=== PATIENT | female | born 1945 | race Caucasian/White ===

== ENCOUNTER 2022-07-11 20:49 | Emergency (ER) | payer MEDICARE, SELFPAY ==
[2022-07-11 21:12] VITALS: BP 127/68; PULSE 66; RESP 20; TEMP 36.6; O2SAT 96; BMI 23.2
--- NOTE | 2022-07-11 21:24 | ED.LOWEXI1 ---
HPI - Extremity Injury (Lower) General Chief Complaint: Extremity Injury, Lower Stated Complaint: left ankle fall Time Seen by Provider: 07/11/22 21:24 Source: patient and family Mode of arrival: walk-in Limitations: no limitations History of Present Illness HPI Narrative: He presents emergency department complaining of left ankle pain. Patient states she was at a and she has not worked. She is in a long time. She twisted her left ankle and she fell. She hit the right frontal area of her scalp and complaining of shoulder pain on the right and left foot pain. Patient states she took hydrocodone that she has at home for pain and that is helping a little bit. She is able to bear some weight but it hurts when she walks. She denies any paresthesias. She did not have any loss of consciousness. She takes a daily aspirin. She denies any headache visual disturbance, speech difficulties, dizziness. Patient has a history of chronic obstructive pulmonary disease and she is on 3 L nasal cannula at home. She denies any chest pain, shortness of breath. Denies any abdominal pain, or back pain. Related Data Allergies Allergy/AdvReac Type Severity Reaction Status Date / Time lisinopril Allergy Intermediate Verified 07/11/22 21:15 Review of Systems ROS Narrative ROS: Unless otherwise stated in this report the patient's positive and negative responses for review of systems for constitutional, eyes, ENT, cardiovascular, respiratory, gastrointestinal, neurological, , musculoskeletal and integument systems and related systems to the presenting problem are either stated in the history of present illness or were not pertinent or were negative for the symptoms and/or complaints related to the presenting medical problem. Exam Narrative: Exam Narrative: Nurses notes and vital signs reviewed and patient is not hypoxic. General: Nontoxic, Elderly, frail, chronically ill, and in no apparent distress. Skin: Warm, dry, no pallor noted. No Rash Head: Normocephalic, Right frontal contusion, ecchymosis, and abrasion, no step-offs. Moderate tenderness to palpation Neck: Supple, non-tender. Eye: Pupils are equal, round and EOMI. No scleral icterus. Ears, Nose, Mouth, and Throat: TM clear,No hemotympanum,no posterior oropharynx erythema or nasal mucosal hypertrophy, uvula is mid-line Oral mucosa is moist Cardiovascular: Regular Rate and Rhythm without murmur, gallop or rub. Respiratory: No accessory muscle use or respiratory distress. Lungs are clear to auscultation, no wheezing, rales or rhonchi Chest Wall: no tenderness Back: No midline thoracic or lumbar vertebral tenderness. No CVA tenderness Musculoskeletal: Tenderness to palpation to the left ankle with moderate edema. He was noted. There is severe tenderness at the base of the 5th. DP+2, TP +2, capillary refill is brisk. Range of motion is limited by pain at the ankle. There is no pain to the proximal tibia-fibula. normal ROM, no calf or popliteal tenderness, no lower extremity edema/swelling GI: Abdomen is soft, non-distended. Normal bowel sounds. No masses appreciated. No tenderness to palpation. No rebound, guarding, or rigidity noted. Neurological: A&O x4. No cranial nerve dysfunction observed. No truncal ataxia. Moves all extremities. Sensation intact. Psychiatric: Cooperative and interactive. Normal mood and affect. Constitutional: Vital Signs, click to edit/add: Vital Signs - 24 hr 07/11/22 21:12 Temperature 98 F Pulse Rate [Monito r] 66 Respiratory Rate 20 Blood Pressure [Ri ght Arm] 127/68 H Pulse Oximetry 96 Oxygen Delivery Me thod Nasal Cannula Oxygen Delivery Fl ow Rate 3 Course Vital Signs Vital signs: Vital Signs Temperature 98 F 07/11/22 21:12 Pulse Rate 66 07/11/22 21:12 Respiratory Rate 20 07/11/22 21:12 Blood Pressure 127/68 H 07/11/22 21:12 Pulse Oximetry 96 07/11/22 21:12 Oxygen Delivery Method Nasal Cannula 07/11/22 21:12 Oxygen Delivery Flow Rate 3 07/11/22 21:12 Temperature 98 F 07/11/22 21:12 Pulse Rate 66 07/11/22 21:12 Respiratory Rate 20 07/11/22 21:12 Blood Pressure 127/68 H 07/11/22 21:12 Pulse Oximetry 96 07/11/22 21:12 Oxygen Delivery Method Nasal Cannula 07/11/22 21:12 Oxygen Delivery Flow Rate 3 07/11/22 21:12 MDM - Extremity Injury (Lower) MDM Narrative Medical decision making narrative: Patient had CT scan of the brain done, it was unremarkable. The patient should right shoulder has full range of motion there is no bony tenderness there is no clinical indication for radiologic x-ray of the right shoulder. Patient had pain and tenderness to palpation to the base of the 5th and lateral ankle. The x-ray showed an intra-articular base of the 5th metacarpal fracture. Patient was placed in a fracture shoe. She is weightbearing as tolerated. She can use a walker as needed. She is to follow-up with Dr. Sahu or orthopedic surgeon. The patient states she has a urgent care physician assistant in [place] that she will follow-up with. She states she has not required home that she will take for pain. At this time the patient is without objective evidence of an acute process requiring hospitalization or inpatient management. The patient has remained hemodynamically stable. No additional indication for emergent studies at this time. I answered all questions. Discussed discharge instructions including standard anticipatory guidance and what should prompt a return to the emergency department, including if they get worse are not getting better or develops any new or concerning symptoms. I've given them specific time frame in which to follow-up, and who to follow-up with. The patient demonstrates understanding. Patient is nontoxic and stable for discharge with outpatient follow-up. This note was created with the assistance of a speech recognition program. Although the intention is to generate documents that actually reflects the content of the visit, no guarantees can be provided that every mistake has been identified and corrected by editing. Discharge Plan Discharge Chief Complaint: Extremity Injury, Lower Clinical Impression: Fracture of fifth metatarsal bone of left foot Patient Disposition: Home, Self-Care Time of Disposition Decision: 23:42 Condition: Good Instructions: Foot Fracture in Adults (ED) Interventions: ED Discharge Assessment Last Done: 07/12/22 00:30 Additional Instructions: Use walking boot at all times. use walker as needed. Continue to take [place]. If Dr. Sahu in the morning. Rest, ice, elevate Stand Alone Forms: Portal Instructions Referrals: LILY DEL REAL [Primary Care Provider] - As soon as possible (podiatry, ortho) Roly Sahu MD [Physician] - As soon as possible Discharge Date/Time: 07/12/22 00:31
--- NOTE | 2022-07-11 21:50 | XR_ITS ---
The [address] [address] Patient Name: ART GARCIA MRN: [id number] date: 1945 Sex: F Assigned Patient Location: ER Current Patient Location: ER Accession/Order Number: [id number] Exam Date: 07/11/2022 10:22 Report Date: 07/11/2022 22:58 At the request of: JOSE RANDOLPH Procedure: XR ankle LT min 3V EXAM: XR ankle LT min 3V, XR foot LT min 3V HISTORY: Twisted left foot and ankle this morning. COMPARISON: None. TECHNIQUE: 3 views a of the ankle and 3 views of the foot FINDINGS: Nondisplaced intra-articular fracture of the fifth metatarsal base. No additional fracture, dislocation, subluxation or osseous lesions. Lateral soft tissue edema. Scattered age-related degenerative changes of the joint spaces. Scattered chronic ossifications. . Atherosclerosis of the vascular structures. Dorsal and plantar calcaneal enthesophytes. IMPRESSION: Nondisplaced intra-articular fracture of the fifth metatarsal base. Orthopedic surgical follow-up is necessary. Electronically authenticated by: GENARO LAWRENCE Date: 07/11/2022 22:58
--- NOTE | 2022-07-11 21:50 | XR_ITS ---
The [address] [address] Patient Name: ART GARCIA MRN: [id number] date: 1945 Sex: F Assigned Patient Location: ER Current Patient Location: ER Accession/Order Number: [id number] Exam Date: 07/11/2022 10:22 Report Date: 07/11/2022 22:58 At the request of: JOSE RANDOLPH Procedure: XR foot LT min 3V EXAM: XR ankle LT min 3V, XR foot LT min 3V HISTORY: Twisted left foot and ankle this morning. COMPARISON: None. TECHNIQUE: 3 views a of the ankle and 3 views of the foot FINDINGS: Nondisplaced intra-articular fracture of the fifth metatarsal base. No additional fracture, dislocation, subluxation or osseous lesions. Lateral soft tissue edema. Scattered age-related degenerative changes of the joint spaces. Scattered chronic ossifications. . Atherosclerosis of the vascular structures. Dorsal and plantar calcaneal enthesophytes. IMPRESSION: Nondisplaced intra-articular fracture of the fifth metatarsal base. Orthopedic surgical follow-up is necessary. Electronically authenticated by: GENARO LAWRENCE Date: 07/11/2022 22:58
== END 2022-07-12 00:31 | disposition home or self-care (01) ==
PROVIDERS: Emergency Provider Emergency Medicine; PCP Internal Medicine
DX: S92.352A Displaced fracture of fifth metatarsal bone, left foot, initial encounter for closed fracture (principal); W19.XXXA Unspecified fall, initial encounter; Z79.82 Long term (current) use of aspirin; J44.9 Chronic obstructive pulmonary disease, unspecified; Z99.81 Dependence on supplemental oxygen
CPT/HCPCS: 73610; 73630; 99283

== ENCOUNTER 2022-08-06 09:30 | Outpatient (OUT) | payer MEDICARE, SELFPAY ==
[2022-08-06 11:33] LABS: Estimated Average Glucose 169 mg/dL; Glycohemoglobin A1C 7.5 % (4.5-6.2)
[2022-08-06 12:46] LABS: Chol HDL Ratio 2.8; Cholesterol 123 mg/dL (<=200); HDL Cholesterol 44 mg/dL (40-60); Triglycerides 199 mg/dL (<=150); VLDL CHOLESTEROL 39.8 mg/dL
== END 2022-08-06 09:31 | disposition home or self-care (01) ==
LOC: LAB 09:34
PROVIDERS: PCP Internal Medicine; Visit Provider Physician Assistant
DX: Z00.00 Encounter for general adult medical examination without abnormal findings (principal); E11.311 Type 2 diabetes mellitus with unspecified diabetic retinopathy with macular edema; I13.2 Hypertensive heart and chronic kidney disease with heart failure and with stage 5 chronic kidney disease, or end stage renal disease; I25.10 Atherosclerotic heart disease of native coronary artery without angina pectoris; E78.2 Mixed hyperlipidemia; E11.22 Type 2 diabetes mellitus with diabetic chronic kidney disease
CPT/HCPCS: 36415; 80061; 83036

== ENCOUNTER 2022-08-08 10:37 | Outpatient (OUT) | payer MEDICARE, SELFPAY ==
--- NOTE | 2022-08-08 | NM_ITS ---
The [address] [address] Patient Name: ART GARCIA MRN: [id number] date: 1945 Sex: F Assigned Patient Location: ID Current Patient Location: ID Accession/Order Number: [id number] Exam Date: 08/08/2022 10:30 Report Date: 08/08/2022 17:00 At the request of: JOHN Sanchez APLING Procedure: CHIARA bone scan limited area EXAMINATION: ID bone scan limited area HISTORY: Right shoulder pain COMPARISON: CT chest 04/04/2022, chest x-ray 02/22/2022 TECHNIQUE: After obtaining the patient's consent, 24.9 mCi Tc-99m MDP was injected intravenously. Images were obtained approximately three hours later. FINDINGS: REGION IMAGED: Thorax ABNORMALITIES: Photopenia identified in a shoulder labeled the left, this has the appearance of a shoulder arthroplasty with increased activity in the glenoid.. Diffuse increase in activity identified in the alternate shoulder labeled the right, favoring degenerative change OTHER: The original image set is mislabeled, subsequent images were corrected. IMPRESSION: Diffuse increased activity in the left shoulder consistent with degenerative change. Findings consistent with right shoulder arthroplasty Electronically authenticated by: GENARO MARTINEZ Date: 08/08/2022 17:00
== END 2022-08-08 10:38 | disposition home or self-care (01) ==
LOC: NM 10:38
PROVIDERS: PCP Internal Medicine; Visit Provider Nurse Practitioner Family
DX: M25.551 Pain in right hip (principal); G89.29 Other chronic pain
CPT/HCPCS: 78300; A9503

== ENCOUNTER 2022-08-15 09:26 | Emergency (ER) | payer MEDICARE, SELFPAY ==
[2022-08-15] VITALS (8 sets, daily range): BP systolic 102–120; BP diastolic 44–51; PULSE 50–59; RESP 16–28; TEMP 37; O2SAT 89–99; BMI 26.5
--- NOTE | 2022-08-15 09:48 | XR_ITS ---
The [address] [address] Patient Name: ART GARCIA MRN: [id number] date: 1945 Sex: F Assigned Patient Location: ER Current Patient Location: ER Accession/Order Number: [id number] Exam Date: 08/15/2022 10:16 Report Date: 08/15/2022 10:41 At the request of: CARLOS HALE Procedure: XR shoulder LT min 2V PROCEDURE: XR shoulder LT min 2V HISTORY: fall , skin tear COMPARISON: None. FINDINGS: BONES:Loss of the glenohumeral joint space with [id number] articulation, periarticular osteophytes, and likely bone remodeling of the glenoid. High riding humeral head, likely contacting the undersurface of acromion process. SOFT TISSUES:No visible soft tissue swelling. EFFUSION:None visible. OTHER: Mechanical fusion of lower cervical spine and multilevel laminectomy and repair. IMPRESSION: 1. 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 2. No appreciable acute abnormality. Electronically authenticated by: ZEKE COSBY Date: 08/15/2022 10:41
--- NOTE | 2022-08-15 09:48 | CT_ITS ---
The [address] [address] Patient Name: ART GARCIA MRN: [id number] date: 1945 Sex: F Assigned Patient Location: ER Current Patient Location: ER Accession/Order Number: [id number] Exam Date: 08/15/2022 10:00 Report Date: 08/15/2022 10:37 At the request of: CARLOS HALE Procedure: CT head/brain wo con EXAMINATION: CT head/brain wo con HISTORY: fall , dizziness, found on bathroom floor COMPARISON: No relevant comparison available. TECHNIQUE: Axial CT images were obtained without IV contrast. Dose reduction techniques were achieved by using automated exposure control and/or adjustment of mA and/or kV according to patient size and/or use of iterative reconstruction technique. FINDINGS: BRAIN: No edema, hemorrhage, mass, acute infarction, or inappropriate atrophy. Small focus of calcium deposition within left frontal lobe. CSF SPACES: No hydrocephalus, subarachnoid hemorrhage, or mass. Appropriate for age. SKULL: No fracture, mass, or other significant visible lesion. SINUSES: No significant mucosal thickening or fluid on the limited views. ORBITS: No appreciable abnormality on the limited views. OTHER: Mild subcutaneous bruising versus small hematoma overlying the anterior left scalp. IMPRESSION: 1. No intracranial hemorrhage or appreciable acute abnormality. 2. Age consistent chronic changes. 3. Anterior left scalp small subcutaneous hematoma. 4. No fracture of the calvarium. Electronically authenticated by: ZEKE COSBY Date: 08/15/2022 10:37
--- NOTE | 2022-08-15 09:48 | ECG_ITS ---
The [facility] Test Date: 2022-08-15 Pat Name: ART GARCIA Department: Room: - Gender: Female [employer] Layer: : 1945 Requested By: LILY DEL REAL Order Number: [id number] Reading MD: FERN CARREON Measurements Intervals [place] Rate: 51 P: 90 MS: 248 QRS: -15 QRSD: 124 T: -48 QT: 450 QTc: 428 Interpretive Statements 1100 Sinus bradycardia 2231 First degree AV block 3314 Cannot rule out anterolateral myocardial infarction, age undetermined 3434 Septal myocardial infarction, age undetermined [address] depression, inferior ischemia can't be excluded 9150 abnormal ECG No previous ECG available for comparison Electronically Signed On 08-16-2022 7:10:40 EDT by FERN CARREON
--- NOTE | 2022-08-15 09:48 | XR_ITS ---
The [address] [address] Patient Name: ART GARCIA MRN: [id number] date: 1945 Sex: F Assigned Patient Location: ER Current Patient Location: ER Accession/Order Number: [id number] Exam Date: 08/15/2022 10:16 Report Date: 08/15/2022 10:39 At the request of: CARLOS HALE Procedure: XR elbow LT min 3V PROCEDURE: XR elbow LT min 3V HISTORY: fall COMPARISON: None. FINDINGS: BONES:No fracture, dislocation, bone lesion. Periarticular degenerative osteophytes. SOFT TISSUES:No visible soft tissue swelling. EFFUSION:None visible. OTHER: Negative. IMPRESSION: 1. Moderate degenerative changes. 2. No acute bone abnormality or joint effusion. Electronically authenticated by: ZEKE COSBY Date: 08/15/2022 10:39
--- NOTE | 2022-08-15 09:50 | ED.GENADUL1 ---
HPI - General Adult General Chief complaint: Head Injury Stated complaint: HEAD INJURY/FALL Time Seen by Provider: 08/15/22 09:34 History of Present Illness HPI narrative: 77-year-old female presents because she fell. She was dizzy and she fell and she hit her left scalp and left shoulder and left elbow. She also got an abrasion on her left knee and the dorsum of her left hand in the left wrist. The knee wrist and hand don't hurt though. She's had a tetanus shot within the last few years. No unusual neck pain. This happened just before coming into the emergency department. Related Data Allergies Allergy/AdvReac Type Severity Reaction Status Date / Time lisinopril Allergy Intermediate Verified 07/11/22 21:15 Review of Systems ROS Narrative A ten point review of systems is negative except as noted above. PFSH PFS Social History Smoking status: Former smoker Exam Narrative Exam Narrative: Nurses note and vital signs reviewed and patient is not hypoxic. General: The patient appears in no apparent distress. Patient is resting comfortably on cart. Skin: Warm, dry, no pallor noted. There is no rash noted. Head: Normocephalic, abrasion and laceration on the left side of her scalp. Eye: Normal conjunctiva, no drainage Ears, Nose, Mouth, and Throat: oral mucosa is moist. Nares patent. Cardiovascular: Regular Rate and Rhythm Respiratory: Patient is in no distress, no accessory muscle use, lungs are clear to auscultation, no wheezing, rales or rhonchi Back: non-tender GI: soft and nontender Musculoskeletal: she has bruising on the left shoulder which has good range of motion. There is an abrasion of the left elbow and left wrist and on the dorsum of the left hand. There is an abrasion on the anterior left knee. All of these joints have full range of motion. Neurological: A&O x4, normal speech Psychiatric: Cooperative Constitutional Vital Signs - 24 hr 08/15/22 09:47 08/15/22 09:42 08/15/22 09:43 Temperature 98.6 F Pulse Rate 50 L Pulse Rate [Monitor] 56 L Respiratory Rate 26 H 17 16 Blood Pressure 114/51 L Blood Pressure [Right Arm] 120/50 H Pulse Oximetry 98 99 99 Oxygen Delivery Method Room Air 08/15/22 10:25 08/15/22 10:30 08/15/22 10:35 Temperature Pulse Rate 59 L 51 L 56 L Pulse Rate [Monitor] Respiratory Rate 18 17 22 Blood Pressure 106/47 L Blood Pressure [Right Arm] Pulse Oximetry 89 L 94 L 98 Oxygen Delivery Method 08/15/22 10:35 08/15/22 10:35 08/15/22 11:00 Temperature Pulse Rate 56 L 53 L 53 L Pulse Rate [Monitor] Respiratory Rate 28 H 16 19 Blood Pressure 106/47 L 117/45 L Blood Pressure [Right Arm] Pulse Oximetry 91 L Oxygen Delivery Method Course Vital Signs Vital signs: Vital Signs Respiratory Rate 17 08/15/22 09:42 Pulse Oximetry 99 08/15/22 09:42 Temperature 98.6 F 08/15/22 09:47 Pulse Rate 53 L 08/15/22 11:00 Respiratory Rate 19 08/15/22 11:00 Blood Pressure 117/45 L 08/15/22 11:00 Pulse Oximetry 91 L 08/15/22 10:35 Oxygen Delivery Method Room Air 08/15/22 09:47 Medical Decision Making MDM Narrative Medical decision making narrative: her workup is negative and she is feeling much better now. [place] applied to her scalp, to be removed in ten days. Torn wants to go home and eat. Treatment diagnosis and follow-up were discussed with the patient and her family. Differential Diagnosis Differential Diagnosis: syncope, intracranial hemorrhage, shoulder fracture, elbow fracture Lab Data Lab results reviewed: Yes I reviewed the patient's lab results Labs: Lab Results 08/15/22 Range/Units 09:35 WBC 7.7 (4.0-11.0) 10^3/uL RBC 3.75 L (4.20-5.40) 10^6/uL Hgb 10.8 L (12.0-16.0) g/dL Hct 35.0 L (36.0-48.0) % MCV 93.3 (81.0-99.0) fL MCH 28.8 (26.7-34.0) pg MCHC 30.9 (29.9-35.2) g/dL RDW 15.5 H (11.0-15.0) % Plt Count 232 (150-450) 10^3/uL MPV 9.9 (9.5-13.5) fL Neut % (Auto) 68.3 (43.0-75.0) % Lymph % (Auto) 13.6 L (20.5-60.0) % [place] % (Auto) 12.2 H (1.7-12.0) % Eos % (Auto) 5.1 (0.9-7.0) % Baso % (Auto) 0.4 (0.2-2.0) % Neut # (Auto) 5.2 (1.4-6.5) 10^3/uL Lymph # (Auto) 1.0 L (1.2-3.8) 10^3/uL [place] # (Auto) 0.9 H (0.3-0.8) 10^3/uL Eos # (Auto) 0.4 (0.0-0.7) 10^3/uL Baso # (Auto) 0.0 (0.0-0.1) 10^3/uL Abs Immat Gran (auto) 0.03 (0.00-0.03) 10^3/uL Imm/Tot Granulo (auto) 0.4 (0.0-0.5) % Sodium 131 L (136-145) mmol/L Potassium 3.6 (3.5-5.1) mmol/L Chloride 92 L (98-107) mmol/L Carbon Dioxide 29.7 (21.0-32.0) mmol/L Anion Gap 12.9 BUN 38.0 H (7.0-18.0) mg/dL Creatinine 3.73 H (0.55-1.02) mg/dL Est GFR ( Amer) 14 L (>=60) Est GFR (Non-Af Amer) 12 L (>=60) BUN/Creatinine Ratio 10.2 Glucose 147 H (74-106) mg/dL Calcium 10.2 H (8.5-10.1) mg/dL Discharge Plan Discharge Chief Complaint: Head Injury Clinical Impression: Syncope, Contusion of multiple sites, Laceration of scalp Patient Disposition: Home, Self-Care Time of Disposition Decision: 11:58 Condition: Good Mode of Transportation: Private Vehicle Instructions: Syncope (ED), Contusion in Adults (ED), Staple Care (ED) Stand Alone Forms: Portal Instructions Referrals: LILY DEL REAL [Primary Care Provider] - 1 week Procedures ED Procedure Instructions Procedures Procedures: The following procedure was performed by me after the topical anesthetic had been applied to her scalp. Was applied ?3. Two nic were placed resulting in good skin reapproximation and no complications.
[2022-08-15 10:10] LABS: Basophils Percent Auto 0.4 % (0.2-2.0); Eosinophils Absolute Auto 0.4 10^3/uL (0.0-0.7); Eosinophils Percent Auto 5.1 % (0.9-7.0); Hemoglobin 10.8 g/dL (12.0-16.0); Immature Granulocytes Abs Auto 0.03 10^3/uL (0.00-0.03); Immature Granulocytes Pct Auto 0.4 % (0.0-0.5); Lymphocytes Percent Auto 13.6 % (20.5-60.0); Mean Corpuscular HGB Conc 30.9 g/dL (29.9-35.2); Mean Corpuscular Hemoglobin 28.8 pg (26.7-34.0); Mean Corpuscular Volume 93.3 fL (81.0-99.0); Mean Platelet Volume 9.9 fL (9.5-13.5); Monocytes Absolute Auto 0.9 10^3/uL (0.3-0.8); Monocytes Percent Auto 12.2 % (1.7-12.0); Neutrophils Absolute Auto 5.2 10^3/uL (1.4-6.5); Neutrophils Percent Auto 68.3 % (43.0-75.0); Platelet Count 232 10^3/uL (150-450); Red Blood Count 3.75 10^6/uL (4.20-5.40); Red Cell Distribution Width 15.5 % (11.0-15.0); White Blood Count 7.7 10^3/uL (4.0-11.0)
[2022-08-15 10:23] LABS: Anion Gap 12.9; BUN Creatinine Ratio 10.2; Calcium 10.2 mg/dL (8.5-10.1); Carbon Dioxide 29.7 mmol/L (21.0-32.0); Chloride 92 mmol/L (98-107); Estimated GFR (African America 14 (>=60); Estimated GFR (Non-African Ame 12 (>=60); Glucose 147 mg/dL (74-106); Potassium 3.6 mmol/L (3.5-5.1); Sodium 131 mmol/L (136-145)
== END 2022-08-15 12:18 | disposition home or self-care (01) ==
PROVIDERS: Emergency Provider Emergency Medicine; PCP Internal Medicine
DX: S01.01XA Laceration without foreign body of scalp, initial encounter (principal); R55 Syncope and collapse; T14.8XXA Other injury of unspecified body region, initial encounter; W18.30XA Fall on same level, unspecified, initial encounter; Z87.891 Personal history of nicotine dependence
CPT/HCPCS: 12001; 36415; 70450; 73030; 73080; 80048; 85025; 93005; 99285

== ENCOUNTER 2022-08-19 07:37 | Outpatient (REF) | payer MEDICARE, SELFPAY | END 2022-08-19 07:38 | disposition home or self-care (01) | LOC: LAB 07:37 | PROVIDERS: PCP Internal Medicine; Visit Provider Internal Medicine Nephrology | DX: N18.9 Chronic kidney disease, unspecified (principal); D63.1 Anemia in chronic kidney disease | CPT/HCPCS: 36415; 85018 ==

== ENCOUNTER 2022-11-29 12:48 | Outpatient (OUT) | payer MEDICARE, SELFPAY ==
[2022-11-29 13:46] LABS: Uric Acid 1.7 mg/dL (2.6-6.0)
== END 2022-11-29 12:49 | disposition home or self-care (01) ==
LOC: LAB 12:51
PROVIDERS: PCP Internal Medicine; Visit Provider Internal Medicine
DX: M10.9 Gout, unspecified (principal)
CPT/HCPCS: 36415; 84550

== ENCOUNTER 2022-12-13 15:34 | Emergency (ER) | payer MEDICARE, SELFPAY ==
[2022-12-13] VITALS (41 sets, daily range): BP systolic 77–129; BP diastolic 30–89; PULSE 31–106; RESP 7–28; TEMP 37.7; O2SAT 85–100; BMI 23.1
--- NOTE | 2022-12-13 15:45 | XR_ITS ---
The [address] [address] Patient Name: ART GARCIA MRN: [id number] date: 1945 Sex: F Assigned Patient Location: ED.MAIN Current Patient Location: ER Accession/Order Number: [id number] Exam Date: 12/13/2022 15:50 Report Date: 12/13/2022 16:56 At the request of: GAIL LLANES Procedure: XR chest 1V ONE-VIEW CHEST RADIOGRAPH, 12/13/2022 3:50 PM EDT COMPARISON: Chest, 02/22/2022. CLINICAL HISTORY: sob Findings and impression: 1. Small mildly sized right pleural fusion and partial consolidation of the right lower lobe may correspond to some atelectasis or pneumonitis. Lungs otherwise clear. 2. Cardiomegaly. 3. Metallic device overlying the sternum likely a monitoring device. Correlate clinically. Reverse right glenohumeral prostheses redemonstrated. Severe degenerative changes of the left shoulder and multilevel degenerative changes of visualized spine redemonstrated. Orthopedic fixation plate again seen over the lower cervical region. Electronically authenticated by: Beryl RAMIREZ Date: 12/13/2022 16:56
--- NOTE | 2022-12-13 15:45 | ECG_ITS ---
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: : 1945 Requested By: LILY DEL REAL Order Number: [id number] Reading MD: DARINEL CULLEN Measurements Intervals [place] Rate: 87 P: 105 ME: 152 QRS: -78 QRSD: 122 T: 81 QT: 394 QTc: 438 Interpretive Statements BIGEMINY PATTERN, UNCERTAIN MECHANISM 2420 RSR (QR) in lead V1/V2, consistent with right ventricular conduction delay 3332 Anterolateral myocardial infarction, probably recent 3631 Inferior myocardial infarction, possibly acute [address] depression 9150 abnormal ECG Compared to ECG 08/15/2022 09:40:38 Sinus bradycardia no longer present First degree AV block no longer present Possible ischemia no longer present Myocardial infarct finding still present ST (T wave) deviation still present Electronically Signed On 12-18-2022 6:55:12 EST by DARINEL CULLEN
--- NOTE | 2022-12-13 16:01 | PC.NURSE ---
Pt arrived on 3L O2, this is what she reports wearing at home. 3L O2 continues, will monitor pulse ox. Resp at bedside for treatment
[2022-12-13] MEDS: IPRATROPIUM/ALBUTEROL SULFATE 3 ML AMPUL.NEB IH (16:05)
[2022-12-13 16:10] LABS: Basophils Percent Auto 0.2 % (0.2-2.0); Eosinophils Absolute Auto 0.1 10^3/uL (0.0-0.7); Eosinophils Percent Auto 0.3 % (0.9-7.0); Hematocrit 36.7 % (36.0-48.0); Hemoglobin 10.9 g/dL (12.0-16.0); Immature Granulocytes Pct Auto 1.2 % (0.0-0.5); Lymphocytes Absolute Auto 1.7 10^3/uL (1.2-3.8); Lymphocytes Percent Auto 10.2 % (20.5-60.0); Mean Corpuscular HGB Conc 29.7 g/dL (29.9-35.2); Mean Corpuscular Hemoglobin 28.7 pg (26.7-34.0); Mean Corpuscular Volume 96.6 fL (81.0-99.0); Mean Platelet Volume 9.4 fL (9.5-13.5); Monocytes Absolute Auto 1.6 10^3/uL (0.3-0.8); Monocytes Percent Auto 9.4 % (1.7-12.0); Neutrophils Absolute Auto 13.3 10^3/uL (1.4-6.5); Neutrophils Percent Auto 78.7 % (43.0-75.0); Platelet Count 395 10^3/uL (150-450); Red Cell Distribution Width 16.1 % (11.0-15.0)
--- NOTE | 2022-12-13 16:11 | RESP.RT ---
Wears 3L at home
[2022-12-13 16:22] LABS: INR 1.02; Prothrombin Time 10.8 sec (9.0-11.6)
[2022-12-13] MEDS: KETOROLAC TROMETHAMINE 30 MG/ML VIAL 15 MG IVP (16:25)
[2022-12-13] MEDS: METHYLPREDNISOLONE SOD SUCC PF 125 MG/2 ML VIAL IVP (16:26)
[2022-12-13 16:27] LABS: Alanine Aminotransferase 31 U/L (14-59); Albumin Globulin Ratio 0.5; Albumin Level 2.5 g/dL (3.4-5.0); Alkaline Phosphatase 201 U/L (46-116); Anion Gap 14.5; Aspartate Amino Transferase 20 U/L (15-37); BUN Creatinine Ratio 12.8; Bilirubin Total 0.4 mg/dL (0.2-1.0); Calcium 9.4 mg/dL (8.5-10.1); Carbon Dioxide 25.5 mmol/L (21.0-32.0); Chloride 88 mmol/L (98-107); Estimated GFR (African America 18 (>=60); Estimated GFR (Non-African Ame 15 (>=60); Globulin 4.9 g/dL; Glucose 264 mg/dL (74-106); Total Protein 7.4 g/dL (6.4-8.2); Troponin I High Sensitivity 27.8 pg/mL (4.0-51.3)
[2022-12-13] MEDS: ATROPINE SULFATE 1 MG/10 ML SYRINGE IVP ×2 (16:27→18:01)
[2022-12-13 16:29] LABS: Sodium 124 mmol/L (136-145)
--- NOTE | 2022-12-13 16:43 | PC.NURSE ---
fast patches placed for a possible pacing if needed. heart monitor from [facility] [place] had to be removed to make room for fast patches. Atropine given IV and pt denies dizziness, nausea and not diaphoretic at this time. E talking to tarring machine operator on the phone at this time
[2022-12-13] MEDS: 0.9 % SODIUM CHLORIDE 1,000 ML 250 ML IV (17:06)
--- NOTE | 2022-12-13 17:12 | ED.GENADUL1 ---
HPI - General Adult General Chief complaint: Shortness of Breath/Dyspnea Stated complaint: SOB Time Seen by Provider: 12/13/22 15:45 Source: patient Mode of arrival: ambulance Limitations: no limitations History of Present Illness HPI narrative: Presenting to us from home after she finished her dialysis session today she is on dialysis Friday and the patient presenting to us after she started feeling short of breath when she got home from the dialysis session, there was no cough fever chills or any other complaint and she did not have any complaint for the dialysis session The patient did had a fall few weeks ago after which she had a ekg monitor tech placed The patient also had a history of a fall and trauma to the back of the head but no acute headache or pain at the moment except for chronic back pain and shoulder pain that is not new Related Data Home Medications Medication Instructions Recorded Confirmed aspirin 81 mg tablet,delayed 81 mg PO DAILY 12/13/22 12/13/22 release (Adult Low Dose Aspirin) atorvastatin 40 mg tablet 40 mg PO BEDTIME 12/13/22 12/13/22 calcium acetate(phosphat bind) 667 667 mg PO TID 12/13/22 12/13/22 mg capsule citalopram 40 mg tablet 40 mg PO DAILY 12/13/22 12/13/22 docusate sodium 100 mg capsule 100 mg PO BID 12/13/22 12/13/22 (Colace) furosemide 20 mg tablet 60 mg PO BID 12/13/22 12/13/22 insulin lispro 100 unit/mL 1 sliding scale dose subcut 12/13/22 12/13/22 subcutaneous pen (Humalog Tempo USEASDIRECTD Pen (U-100) Insulin) metoprolol succinate 25 mg 12.5 mg PO BID 12/13/22 12/13/22 tablet,extended release 24 hr midodrine 5 mg tablet 5 mg PO TID PRN hypotension 12/13/22 12/13/22 multivitamin (Daily Multi-Vitamin 1 tab PO DAILY 12/13/22 12/13/22 tablet) oxycodone-acetaminophen 5 mg-325 1 tab PO Q6H PRN pain 12/13/22 12/13/22 mg tablet pantoprazole 40 mg tablet,delayed 40 mg PO DAILY 12/13/22 12/13/22 release pramipexole 0.5 mg tablet 0.5 mg PO QPM 12/13/22 12/13/22 sennosides 8.6 mg tablet (senna) 8.6 mg PO BID 12/13/22 12/13/22 Allergies Allergy/AdvReac Type Severity Reaction Status Date / Time lisinopril Allergy Intermediate Verified 07/11/22 21:15 Review of Systems ROS Status of ROS 10 or more systems reviewed and unremarkable except as noted in history and below [facility] Social History Smoking status: Former smoker Exam Narrative Exam Narrative: Nurses notes and vital signs reviewed and patient is not hypoxic. General: Well-appearing and in no apparent distress. Skin: Warm, dry, no pallor noted. No rash. Head: Normocephalic, atraumatic. Neck: Supple, non-tender. Eye: Pupils are equal, round and EOMI. No scleral icterus. Ears, Nose, Mouth, and Throat: TM are clear, no nasal mucosal hypertrophy. Oral mucosa is moist, no posterior oropharynx erythema, uvula is mid-line Cardiovascular: The patient rate is very slow, without murmur, gallop or rub. Respiratory: No accessory muscle use or respiratory distress. Lungs are clear to auscultation, no wheezing, rales or rhonchi Chest Wall: no tenderness Back: No midline thoracic or lumbar vertebral tenderness. No CVA tenderness Musculoskeletal: normal ROM, no calf or popliteal tenderness, no lower extremity edema/swelling, bilateral skin changes on the lower extremity mostly scratches and chronic skin changes GI: Abdomen is soft, non-distended. Normal bowel sounds. No masses appreciated. No tenderness to palpation. No rebound, guarding, or rigidity noted. Neurological: A&O x4. No cranial nerve dysfunction observed. No truncal ataxia. Moves all extremities. Sensation intact. Psychiatric: Cooperative and interactive. Normal mood and affect. Constitutional Vital Signs, click to edit/add: Last Vital Signs Temp 99.9 F 12/13/22 15:38 Pulse 96 H 12/13/22 18:46 Resp 20 12/13/22 18:46 BP 98/47 L 12/13/22 18:46 Pulse Ox 99 12/13/22 18:46 O2 Del Method Nasal Cannula 12/13/22 16:08 O2 Flow Rate 3 12/13/22 16:08 Course Vital Signs Vital signs: Vital Signs Temperature 99.9 F 12/13/22 15:38 Pulse Rate 43 L 12/13/22 15:38 Respiratory Rate 24 12/13/22 15:38 Blood Pressure 129/89 12/13/22 15:38 Pulse Oximetry 97 12/13/22 15:38 Oxygen Delivery Method Nasal Cannula 12/13/22 15:38 Oxygen Delivery Flow Rate 2 12/13/22 15:38 Temperature 99.9 F 12/13/22 15:38 Pulse Rate 96 H 12/13/22 18:46 Respiratory Rate 20 12/13/22 18:46 Blood Pressure 98/47 L 12/13/22 18:46 Pulse Oximetry 99 12/13/22 18:46 Oxygen Delivery Method Nasal Cannula 12/13/22 16:08 Oxygen Delivery Flow Rate 3 12/13/22 16:08 Medical Decision Making MDM Narrative Medical decision making narrative: Upon present patient with noted that the patient heart rate was ranging between 35-40 although with time it was noted that it actually goes down to 27 The patient did had a monitor few weeks ago placed by cardiology service and [facility] The patient CBC shows some leukocytosis but it seems to be mostly reactive at the patient seem to be dehydrated from her dialysis today her sodium also is low with a sodium level of 124 EKG showing sinus bradycardia with a heart rate of 42 although on the monitor the patient was going down to 27-40 The patient does have a sense of shortness of breath but it is mostly secondary to the severe bradycardia that she have I spoke with the cardiology service in [facility] and right now we are arranging for transfer to the ICU for the possibility of pacemaker The external pads of the defibrillator placed to the patient's chest in case it is needed Atropine was provided to the patient and right now her heart rate sinus at 52 The patient also was provided with 250 cc of fluid only NS pt has doesnt take an b-madhu or anti arrhytmic -----takes Midodrine for hypotension after HD I discussed the case with Dr Joseph in cardiology service and he requested giving the pt 75 mg bolus of Lidocaine and then run a drip if it helps her rhythm ,pt was noted to have BP in lower normal and also had 83/57 ----pt BP when checked was 98/47 but i ordered Levopehd drip to be sent with the patient in case needed over the transport The patient also had an amiodarone drip started at 0.5 mg/min as the lidocaine was not very effective in controlling her rhythm I did discuss the above mentioned plan also with and he agreed with above-mentioned plan The patient will be transferred by air after the EMS by ground will take at least 3 to 5 hrs and is not safe to keep the patient in a facility where there is no specialty that would help the patient awaiting air flight pt care transferred to Dr Lozoya Lab Data Labs: Lab Results 12/13/22 Range/Units 15:47 WBC 17.0 H (4.0-11.0) 10^3/uL RBC 3.80 L (4.20-5.40) 10^6/uL Hgb 10.9 L (12.0-16.0) g/dL Hct 36.7 (36.0-48.0) % MCV 96.6 (81.0-99.0) fL MCH 28.7 (26.7-34.0) pg MCHC 29.7 L (29.9-35.2) g/dL RDW 16.1 H (11.0-15.0) % Plt Count 395 (150-450) 10^3/uL MPV 9.4 L (9.5-13.5) fL Neut % (Auto) 78.7 H (43.0-75.0) % Lymph % (Auto) 10.2 L (20.5-60.0) % [place] % (Auto) 9.4 (1.7-12.0) % Eos % (Auto) 0.3 L (0.9-7.0) % Baso % (Auto) 0.2 (0.2-2.0) % Neut # (Auto) 13.3 H (1.4-6.5) 10^3/uL Lymph # (Auto) 1.7 (1.2-3.8) 10^3/uL [place] # (Auto) 1.6 H (0.3-0.8) 10^3/uL Eos # (Auto) 0.1 (0.0-0.7) 10^3/uL Baso # (Auto) 0.0 (0.0-0.1) 10^3/uL Abs Immat Gran (auto) 0.20 H (0.00-0.03) 10^3/uL Imm/Tot Granulo (auto) 1.2 H (0.0-0.5) % PT 10.8 (9.0-11.6) sec INR 1.02 Sodium 124 L* (136-145) mmol/L Potassium 4.0 (3.5-5.1) mmol/L Chloride 88 L (98-107) mmol/L Carbon Dioxide 25.5 (21.0-32.0) mmol/L Anion Gap 14.5 BUN 40.0 H (7.0-18.0) mg/dL Creatinine 3.12 H (0.55-1.02) mg/dL Est GFR ( Amer) 18 L (>=60) Est GFR (Non-Af Amer) 15 L (>=60) BUN/Creatinine Ratio 12.8 Glucose 264 H (74-106) mg/dL Calcium 9.4 (8.5-10.1) mg/dL Total Bilirubin 0.4 (0.2-1.0) mg/dL AST 20 (15-37) U/L ALT 31 (14-59) U/L Alkaline Phosphatase 201 H (46-116) U/L Troponin I High Sens 27.8 (4.0-51.3) pg/mL Total Protein 7.4 (6.4-8.2) g/dL Albumin 2.5 L (3.4-5.0) g/dL Globulin 4.9 g/dL Albumin/Globulin Ratio 0.5 Critical Care Time Critical Care Time Critical Care Time: Yes Total Critical Care Time: 60 Attestation: multiple check up and repeated EKGs as well as bedside evaluation to make sure the pt stays stable Discharge Plan Discharge Chief Complaint: Shortness of Breath/Dyspnea Clinical Impression: Symptomatic bradycardia Patient Disposition: [facility] Time of Disposition Decision: 19:01 Discharge Location: [facility] Condition: Good Mode of Transportation: Life Flight
--- NOTE | 2022-12-13 17:17 | ECG_ITS ---
The [facility] Test Date: 2022-12-13 Pat Name: ART GARCIA Department: Room: - Gender: Female Hands Assembler: : 1945 Requested By: LILY DEL REAL Order Number: [id number] Reading MD: DARINEL CULLEN Measurements Intervals [place] Rate: 107 P: 0 LA: 220 QRS: -20 QRSD: 108 T: 132 QT: 340 QTc: 403 Interpretive Statements BIGEMINY PATTERN, UNCERTAIN MECHANISM 1575 with frequent ventricular premature complexes in a pattern of bigeminy 2231 First degree AV block 3114 Cannot rule out anterior myocardial infarction, age undetermined [address] depression, possible subendocardial injury 4564 Twave abnormality, possible lateral ischemia 8102 Low QRS voltage in chest leads 9150 abnormal ECG Compared to ECG 12/13/2022 15:41:07 Ventricular premature complex(es) now present First degree AV block now present Possible ischemia now present, Low QRS voltage now present Sinus rhythm no longer present Myocardial infarct finding still present,ST (T wave) deviation still present Electronically Signed On 12-18-2022 6:55:26 EST by DARINEL CULLEN
--- NOTE | 2022-12-13 17:33 | ECG_ITS ---
[facility] Test Date: 2022-12-13 Pat Name: ART GARCIA Department: Room: - Gender: Female [employer] Hand Finisher: : 1945 Requested By: [id number] Order Number: [id number] Reading MD: DARINEL CULLEN Measurements Intervals [place] Rate: 116 P: -10451 HI: -48062 QRS: 264 QRSD: 126 T: -83 QT: 416 QTc: 485 Interpretive Statements 92126 Atrial fibrillation with rapid ventricular response with ventricular couplets 3334 Anterolateral myocardial infarction, age undetermined 80577 Inferior myocardial infarction with posterior extension, age undetermined [address] depression, possible subendocardial injury or digitalis effect 9150 abnormal ECG Electronically Signed On 12-18-2022 6:56:20 EST by DARINEL CULLEN
[2022-12-13] MEDS: 0.9 % SODIUM CHLORIDE 250 ML IV.SOLN IV (18:40)
--- NOTE | 2022-12-13 18:43 | ECG_ITS ---
[facility] Test Date: 2022-12-13 Pat Name: ART GARCIA Department: Room: - Gender: Female Assistant Facility Manager: : 1945 Requested By: LILY DEL REAL Order Number: [id number] Reading MD: DARINEL CULLEN Measurements Intervals [place] Rate: 92 P: -14 UT: 222 QRS: -27 QRSD: 116 T: 129 QT: 356 QTc: 406 Interpretive Statements TRIGEMINY PATTERN, UNCERTAIN MECHANISM 1574 with frequent ventricular premature complexes 2231 First degree AV block 3114 Cannot rule out anterior myocardial infarction, age undetermined [address] depression 9150 abnormal ECG Compared to ECG 12/13/2022 17:27:13 Ventricular premature complex(es) now present First degree AV block now present Atrial fibrillation no longer present Myocardial infarct finding still present ST (T wave) deviation still present Electronically Signed On 12-18-2022 6:57:16 EST by DARINEL CULLEN
[2022-12-13] MEDS: AMIODARONE IN DEXTROSE,ISO-OSM 360 MG/200 ML PLAST..BAG 16.667 MG IV (19:10)
== END 2022-12-13 19:41 | disposition short-term general hospital (02) ==
PROVIDERS: Emergency Provider Emergency Medicine; PCP Internal Medicine
DX: R00.1 Bradycardia, unspecified (principal); Z99.2 Dependence on renal dialysis; Z91.81 History of falling; Z79.82 Long term (current) use of aspirin; Z79.899 Other long term (current) drug therapy; Z79.4 Long term (current) use of insulin; Z87.891 Personal history of nicotine dependence
CPT/HCPCS: 36415; 71045; 80053; 84484; 85025; 85610; 93005; 94640; 96374; 96375; 96376; 99285; J2930

== ENCOUNTER 2022-12-27 08:35 | Outpatient (REF) | payer MEDICARE, SELFPAY ==
[2022-12-27 09:13] LABS: Hemoglobin 9.1 g/dL (12.0-16.0)
== END 2022-12-27 08:36 | disposition home or self-care (01) ==
LOC: LAB 08:35
PROVIDERS: PCP Internal Medicine; Visit Provider Internal Medicine
DX: N18.9 Chronic kidney disease, unspecified (principal); D63.1 Anemia in chronic kidney disease
CPT/HCPCS: 36415; 85018

== ENCOUNTER 2023-01-06 14:32 | Observation (INO) | payer MEDICARE, SELFPAY ==
[2023-01-06] VITALS (17 sets, daily range): BP systolic 94–145; BP diastolic 42–66; PULSE 62–87; RESP 5–28; TEMP 36.7–37.3; O2SAT 75–100; BMI 29.5; BMI 22.8
--- NOTE | 2023-01-06 14:57 | ECG_ITS ---
[facility] Test Date: 2023-01-06 Pat Name: ART GARCIA Department: Room: [facility] Gender: Female Shirt Trimmer: : 1945 Requested By: LILY DEL REAL Order Number: [id number] Reading MD: FERN CARREON Measurements Intervals [place] Rate: 69 P: -30 RI: 240 QRS: -26 QRSD: 128 T: 187 QT: 448 QTc: 468 Interpretive Statements 1100 Sinus rhythm 2231 First degree AV block LEFT BUNDLE BRANCH BLOCK w/ secondary ST/T wave changes ST/T wave changes, can't exclude anterior wall ischemia 9150 abnormal ECG Electronically Signed On 01-07-2023 7:15:59 EST by FERN CARREON
--- NOTE | 2023-01-06 15:01 | ED_ITS ---
HPI - General Adult General Chief complaint: Neuro Symptoms/Deficit Stated complaint: confusion Time Seen by Provider: 01/06/23 14:48 Source: patient and family Mode of arrival: Wheelchair Limitations: no limitations History of Present Illness HPI narrative: patient's here with her daughter was concerned that she's had over several weeks , increasing confusion. She is currently under the care of cardiology was just at the clinic here today. They discontinue some of her medications in the home twelve remedying her arrhythmias and bradycardia. She's not had new trauma injuries or falls. She's not had fever shakes or chills. Earlier this year she had a CT scan noncontrast that was negative for any acute problems.I did contact her cardiology clinic they confirm that there stopped all her medications and wanted document whether not she is having a significant clinical heart block problems. The provider in the cardiology clinic did not witness any episodes of confusion or altered mental status during their visit today. She has had a CT in the past as mentioned earlier and it was normal that was done August 15 this year. Related Data Home Medications Medication Instructions Recorded Confirmed aspirin 81 mg tablet,delayed 81 mg PO DAILY 12/13/22 12/13/22 release (Adult Low Dose Aspirin) atorvastatin 40 mg tablet 40 mg PO BEDTIME 12/13/22 12/13/22 calcium acetate(phosphat bind) 667 667 mg PO TID 12/13/22 12/13/22 mg capsule citalopram 40 mg tablet 40 mg PO DAILY 12/13/22 12/13/22 docusate sodium 100 mg capsule 100 mg PO BID 12/13/22 12/13/22 (Colace) furosemide 20 mg tablet 60 mg PO BID 12/13/22 12/13/22 insulin lispro 100 unit/mL 1 sliding scale dose subcut 12/13/22 12/13/22 subcutaneous pen (Humalog Tempo USEASDIRECTD Pen (U-100) Insulin) metoprolol succinate 25 mg 12.5 mg PO BID 12/13/22 12/13/22 tablet,extended release 24 hr midodrine 5 mg tablet 5 mg PO TID PRN hypotension 12/13/22 12/13/22 multivitamin (Daily Multi-Vitamin 1 tab PO DAILY 12/13/22 12/13/22 tablet) oxycodone-acetaminophen 5 mg-325 1 tab PO Q6H PRN pain 12/13/22 12/13/22 mg tablet pantoprazole 40 mg tablet,delayed 40 mg PO DAILY 12/13/22 12/13/22 release pramipexole 0.5 mg tablet 0.5 mg PO QPM 12/13/22 12/13/22 sennosides 8.6 mg tablet (senna) 8.6 mg PO BID 12/13/22 12/13/22 Allergies Allergy/AdvReac Type Severity Reaction Status Date / Time lisinopril Allergy Intermediate Verified 07/11/22 21:15 PFSH PFS Social History Smoking status: Former smoker Exam Narrative Exam Narrative: patient's vital signs were noted essentially within normal limits. The blood pressure is excellent she's not having any clinical bradycardia arrhythmia. She is awake alert oriented ?3. I've asked or at least 10-15 questions and she is very very acute with her responses there is no evidence of any type of altered mental status or confusion. In fact she is a better historian and most of our patients. She follows simple or complex commands. She is moving all extremities is no focal neurological deficit. I reviewed her medical records in August of this year she had a noncontrast CT that was normal. HEENT examination shows no conjunctivitis no facial swelling noted trauma or injury. Chest lungs are clear no wheezes rales or rhonchi heart sounds are normal. I spoke with the cardiology clinic here and they've discontinued off her meds [place] on a air sampling and monitoring to determine if she has any significant bradycardia arrhythmias. They did not notice any confusion while she was in the cardiology clinic. Examination abdomen she has no pain or tenderness. Constitutional Vital Signs, click to edit/add: Last Vital Signs Temp 98.1 F 01/06/23 14:37 Pulse 84 01/06/23 14:37 Resp 18 01/06/23 14:37 BP 107/43 L 01/06/23 14:37 Pulse Ox 75 L 01/06/23 14:37 O2 Del Method Nasal Cannula 01/06/23 14:37 Course Vital Signs Vital signs: Vital Signs Temperature 98.1 F 01/06/23 14:37 Pulse Rate 84 01/06/23 14:37 Respiratory Rate 18 01/06/23 14:37 Blood Pressure 107/43 L 01/06/23 14:37 Pulse Oximetry 75 L 01/06/23 14:37 Oxygen Delivery Method Nasal Cannula 01/06/23 14:37 Temperature 98.1 F 01/06/23 14:37 Pulse Rate 84 01/06/23 14:37 Respiratory Rate 18 01/06/23 14:37 Blood Pressure 107/43 L 01/06/23 14:37 Pulse Oximetry 75 L 01/06/23 14:37 Oxygen Delivery Method Nasal Cannula 01/06/23 14:37 Medical Decision Making MDM Narrative Medical decision making narrative: this patient presents stable neurological status but does have mild elevation of white blood cell count, elevation of her lactate levels and substantial pyuria in a catheter urine specimen. For that reason I think is prudent to start her on parental antibiotics and supportive care to make sure she doesn't deteriorate. I discussed this case with the on-call hospitalist. Lab Data Labs: Lab Results 01/06/23 01/06/23 Range/Units 15:10 15:25 WBC 13.9 H (4.0-11.0) 10^3/uL RBC 3.88 L (4.20-5.40) 10^6/uL Hgb 10.8 L (12.0-16.0) g/dL Hct 35.9 L (36.0-48.0) % MCV 92.5 (81.0-99.0) fL MCH 27.8 (26.7-34.0) pg MCHC 30.1 (29.9-35.2) g/dL RDW 17.7 H (11.0-15.0) % Plt Count 422 (150-450) 10^3/uL MPV 9.6 (9.5-13.5) fL Neut % (Auto) 83.3 H (43.0-75.0) % Lymph % (Auto) 6.5 L (20.5-60.0) % [place] % (Auto) 7.4 (1.7-12.0) % Eos % (Auto) 0.2 L (0.9-7.0) % Baso % (Auto) 0.2 (0.2-2.0) % Neut # (Auto) 11.5 H (1.4-6.5) 10^3/uL Lymph # (Auto) 0.9 L (1.2-3.8) 10^3/uL [place] # (Auto) 1.0 H (0.3-0.8) 10^3/uL Eos # (Auto) 0.0 (0.0-0.7) 10^3/uL Baso # (Auto) 0.0 (0.0-0.1) 10^3/uL Abs Immat Gran (auto) 0.33 H (0.00-0.03) 10^3/uL Imm/Tot Granulo (auto) 2.4 H (0.0-0.5) % Sodium 130 L (136-145) mmol/L Potassium 3.5 (3.5-5.1) mmol/L Chloride 90 L (98-107) mmol/L Carbon Dioxide 28.8 (21.0-32.0) mmol/L Anion Gap 14.7 BUN 35.0 H (7.0-18.0) mg/dL Creatinine 2.61 H (0.55-1.02) mg/dL Est GFR ( Amer) 22 L (>=60) Est GFR (Non-Af Amer) 18 L (>=60) BUN/Creatinine Ratio 13.4 Glucose 270 H (74-106) mg/dL Lactate 3.1 H* (0.4-2.0) mmol/L Calcium 9.7 (8.5-10.1) mg/dL Total Bilirubin 0.5 (0.2-1.0) mg/dL AST 19 (15-37) U/L ALT 27 (14-59) U/L Alkaline Phosphatase 200 H (46-116) U/L Total Protein 7.7 (6.4-8.2) g/dL Albumin 2.6 L (3.4-5.0) g/dL Globulin 5.1 g/dL Albumin/Globulin Ratio 0.5 TSH 5.629 H (0.358-3.740) uIU/mL Urine Color Yellow (YELLOW) Urine Clarity Cloudy A (CLEAR) Urine pH 6.0 (5.0-9.0) Ur Specific [place] 1.020 (1.005-1.025) Urine Protein 100 A (NEG/TRACE) mg/dL Urine Glucose (UA) Negative (NEGATIVE) mg/dL Urine Ketones Trace A (NEGATIVE) mg/dL Urine Occult Blood Moderate A (NEGATIVE) Urine Nitrite Negative (NEGATIVE) Urine Bilirubin Negative (NEGATIVE) Urine Urobilinogen 0.2 (0.2-1.0) EU/dL Ur Leukocyte Esterase Large A (NEGATIVE) Urine RBC 5-10 A (0-2) #/HPF Urine WBC >100 A (NONE SEEN) #/HPF Ur Squamous Epith Cells Rare (NONE/RARE) #/LPF Urine Crystals None seen (None Seen) #/HPF Urine Bacteria Large A (NONE SEEN) #/HPF Urine Casts None seen (NONE SEEN) #/LPF Urine Mucus None seen (NONE SEEN) Ur Culture Indicated? Yes Discharge Plan Discharge Chief Complaint: Neuro Symptoms/Deficit Clinical Impression: Urinary tract infection, Renal failure, chronic Patient Disposition: Admitted as Observation Time of Disposition Decision: 16:16 Prescriptions / Home Meds: No Action atorvastatin 40 mg tablet 40 mg PO BEDTIME furosemide 20 mg tablet 60 mg PO BID calcium acetate(phosphat bind) 667 mg capsule 667 mg PO TID citalopram 40 mg tablet 40 mg PO DAILY metoprolol succinate 25 mg tablet extended release 24 hr 12.5 mg PO BID pantoprazole 40 mg tablet,delayed release (DR/EC) 40 mg PO DAILY pramipexole 0.5 mg tablet 0.5 mg PO QPM sennosides [senna] 8.6 mg tablet 8.6 mg PO BID midodrine 5 mg tablet 5 mg PO TID PRN (Reason: hypotension) multivitamin [Daily Multi-Vitamin] Tablet 1 tab PO DAILY docusate sodium [Colace] 100 mg capsule 100 mg PO BID aspirin [Adult Low Dose Aspirin] 81 mg tablet,delayed release (DR/EC) 81 mg PO DAILY oxycodone-acetaminophen 5-325 mg tablet 1 tab PO Q6H PRN (Reason: pain) insulin lispro [Humalog Tempo Pen(U-100)Insuln] 100 unit/mL insulin pen 1 sliding scale dose subcut USEASDIRECTD Stand Alone Forms: Portal Instructions Referrals: LILY DEL REAL [Primary Care Provider] - 1 week
[2023-01-06 15:34] LABS: Basophils Percent Auto 0.2 % (0.2-2.0); Eosinophils Percent Auto 0.2 % (0.9-7.0); Hematocrit 35.9 % (36.0-48.0); Hemoglobin 10.8 g/dL (12.0-16.0); Immature Granulocytes Abs Auto 0.33 10^3/uL (0.00-0.03); Immature Granulocytes Pct Auto 2.4 % (0.0-0.5); Lymphocytes Absolute Auto 0.9 10^3/uL (1.2-3.8); Lymphocytes Percent Auto 6.5 % (20.5-60.0); Mean Corpuscular HGB Conc 30.1 g/dL (29.9-35.2); Mean Corpuscular Hemoglobin 27.8 pg (26.7-34.0); Mean Corpuscular Volume 92.5 fL (81.0-99.0); Mean Platelet Volume 9.6 fL (9.5-13.5); Monocytes Percent Auto 7.4 % (1.7-12.0); Neutrophils Absolute Auto 11.5 10^3/uL (1.4-6.5); Neutrophils Percent Auto 83.3 % (43.0-75.0); Platelet Count 422 10^3/uL (150-450); Red Blood Count 3.88 10^6/uL (4.20-5.40); Red Cell Distribution Width 17.7 % (11.0-15.0); White Blood Count 13.9 10^3/uL (4.0-11.0)
[2023-01-06 15:49] LABS: Bilirubin Urine NEGATIVE (NEGATIVE); Blood Urine MODERATE (NEGATIVE); Clarity Urine CLOUDY (CLEAR); Color Urine YELLOW (YELLOW); Glucose Urine UA NEGATIVE (NEGATIVE); Ketones Urine TRACE mg/dL (NEGATIVE); Leukocyte Esterase Urine LARGE (NEGATIVE); Nitrite Urine NEGATIVE (NEGATIVE); Protein Urine 100 mg/dL (NEG/TRACE); Urine Microscopic Indicated YES; Urobilinogen Urine 0.2 EU/dL (0.2-1.0)
[2023-01-06 15:50] LABS: Alanine Aminotransferase 27 U/L (14-59); Albumin Globulin Ratio 0.5; Albumin Level 2.6 g/dL (3.4-5.0); Alkaline Phosphatase 200 U/L (46-116); Anion Gap 14.7; Aspartate Amino Transferase 19 U/L (15-37); BUN Creatinine Ratio 13.4; Bilirubin Total 0.5 mg/dL (0.2-1.0); Calcium 9.7 mg/dL (8.5-10.1); Carbon Dioxide 28.8 mmol/L (21.0-32.0); Chloride 90 mmol/L (98-107); Estimated GFR (African America 22 (>=60); Estimated GFR (Non-African Ame 18 (>=60); Globulin 5.1 g/dL; Glucose 270 mg/dL (74-106); Potassium 3.5 mmol/L (3.5-5.1); Sodium 130 mmol/L (136-145); Thyroid Stimulating Hormone 5.629 uIU/mL (0.358-3.740); Total Protein 7.7 g/dL (6.4-8.2)
[2023-01-06 15:54] LABS: Lactate/Lactic Acid 3.1 mmol/L (0.4-2.0)
[2023-01-06 15:56] LABS: Bacteria Urine LARGE #/HPF (NONE SEEN); Cast Seen? NONE SEEN #/LPF (NONE SEEN); Crystals Seen? None Seen #/HPF (None Seen); Mucus Urine NONE SEEN (NONE SEEN); Squamous Epithelial Cell Urine RARE #/LPF (NONE/RARE); Urine Culture Indicated YES; WBC Urine >100 #/HPF (NONE SEEN)
[2023-01-06] MEDS: CEFTRIAXONE 1,000 MG in 0.9 % SODIUM CHLORIDE 50 ML 100 MG IV (16:27)
[2023-01-06 18:39] LABS: Lactate/Lactic Acid 1.2 mmol/L (0.4-2.0)
[2023-01-06] MEDS: 0.9 % SODIUM CHLORIDE 1,000 ML 70 ML IV (18:56)
[2023-01-06 20:17] LABS: Lactate/Lactic Acid 1.2 mmol/L (0.4-2.0)
[2023-01-06] MEDS: SENNOSIDES 8.6 MG TABLET PO (21:21)
[2023-01-06] MEDS: DOCUSATE SODIUM 100 MG CAPSULE PO (21:21)
[2023-01-06] MEDS: BUSPIRONE HCL 10 MG TABLET PO (21:21)
[2023-01-06] MEDS: GABAPENTIN 100 MG CAPSULE PO (21:21)
[2023-01-06] MEDS: ATORVASTATIN CALCIUM 40 MG TABLET PO (21:21)
[2023-01-06 21:22] LABS: Glucometer 267 mg/dL (74-106)
[2023-01-06] MEDS: FUROSEMIDE 20 MG TABLET 60 MG PO (21:22)
[2023-01-06] MEDS: CALCIUM ACETATE 667 MG CAPSULE PO (21:22)
[2023-01-06] MEDS: NYSTATIN 500,000 UNIT/5 ML ORAL.SUSP 1 UNIT PO (21:22)
[2023-01-06] MEDS: INSULIN ASPART 300 UNIT/3 ML PEN SUBQ (21:23)
[2023-01-06] MEDS: PRAMIPEXOLE 1 MG TABLET 0.5 MG PO (21:27)
[2023-01-07] VITALS (9 sets, daily range): BP systolic 103–106; BP diastolic 47–68; PULSE 58–64; RESP 18; TEMP 36.6; O2SAT 95–99
[2023-01-07] MEDS: NYSTATIN 500,000 UNIT/5 ML ORAL.SUSP 1 UNIT PO ×2 (05:13→11:47)
[2023-01-07] MEDS: CALCIUM ACETATE 667 MG CAPSULE PO (05:13)
[2023-01-07 05:19] LABS: Basophils Percent Auto 0.1 % (0.2-2.0); Eosinophils Absolute Auto 0.1 10^3/uL (0.0-0.7); Eosinophils Percent Auto 1.3 % (0.9-7.0); Hematocrit 29.9 % (36.0-48.0); Hemoglobin 8.8 g/dL (12.0-16.0); Lymphocytes Absolute Auto 1.1 10^3/uL (1.2-3.8); Lymphocytes Percent Auto 11.5 % (20.5-60.0); Mean Corpuscular HGB Conc 29.4 g/dL (29.9-35.2); Mean Corpuscular Hemoglobin 27.9 pg (26.7-34.0); Mean Corpuscular Volume 94.9 fL (81.0-99.0); Mean Platelet Volume 9.6 fL (9.5-13.5); Monocytes Absolute Auto 1.1 10^3/uL (0.3-0.8); Monocytes Percent Auto 11.6 % (1.7-12.0); Neutrophils Absolute Auto 7.2 10^3/uL (1.4-6.5); Neutrophils Percent Auto 73.5 % (43.0-75.0); Platelet Count 335 10^3/uL (150-450); Red Blood Count 3.15 10^6/uL (4.20-5.40); Red Cell Distribution Width 17.7 % (11.0-15.0); White Blood Count 9.8 10^3/uL (4.0-11.0)
[2023-01-07 05:36] LABS: Anion Gap 11.4; BUN Creatinine Ratio 13.8; Calcium 8.9 mg/dL (8.5-10.1); Carbon Dioxide 29.8 mmol/L (21.0-32.0); Chloride 95 mmol/L (98-107); Estimated GFR (African America 16 (>=60); Estimated GFR (Non-African Ame 13 (>=60); Glucose 187 mg/dL (74-106); Potassium 3.2 mmol/L (3.5-5.1); Sodium 133 mmol/L (136-145)
[2023-01-07] MEDS: 0.9 % SODIUM CHLORIDE 1,000 ML 70 ML IV (08:06)
[2023-01-07] MEDS: INSULIN ASPART 300 UNIT/3 ML PEN SUBQ ×2 (08:09→11:22)
[2023-01-07] MEDS: CEFTRIAXONE 1,000 MG in 0.9 % SODIUM CHLORIDE 50 ML 100 MG IV (08:13)
[2023-01-07] MEDS: AMIODARONE HCL 200 MG TABLET PO (09:34)
[2023-01-07] MEDS: ASPIRIN 81 MG TABLET.DR PO (09:35)
[2023-01-07] MEDS: FUROSEMIDE 20 MG TABLET 60 MG PO (09:36)
[2023-01-07] MEDS: DOCUSATE SODIUM 100 MG CAPSULE PO (09:36)
[2023-01-07] MEDS: CITALOPRAM HYDROBROMIDE 20 MG TABLET 40 MG PO (09:36)
[2023-01-07] MEDS: MULTIVITAMIN TABLET 1 TAB PO (09:37)
[2023-01-07] MEDS: OMEPRAZOLE 40 MG CAPSULE.DR PO (09:37)
[2023-01-07] MEDS: SENNOSIDES 8.6 MG TABLET PO (09:37)
[2023-01-07] MEDS: OXYCODONE HCL/ACETAMINOPHEN 5MG/325MG 1 TAB PO (09:55)
[2023-01-07 10:20] LABS: Free T4 0.85 ng/dL (0.76-1.46)
[2023-01-07 10:28] LABS: Free T3 0.82 pg/mL (2.18-3.98)
[2023-01-07 11:01] LABS: Glucometer 228 mg/dL (74-106)
--- NOTE | 2023-01-07 11:41 | CM.NOTE ---
Rounds made with leonardo Espitia to discharge to home with [facility].
--- NOTE | 2023-01-07 11:56 | CM.NOTE ---
Medicare Outpatient Observation Notice discussed with pt, pt verbalizes understanding and signs paper. Original given to pt and copy placed on pt's chart.
--- NOTE | 2023-01-07 12:35 | P.HP_ITS ---
Patient seen and examined, agree with assessment and plan below. Presented with concern of confusion for weeks and found UTI. Treated with rocephin. Likely dementia. Improved overnight and discharged home. Diagnosis: 1. UTI 2. ESRD 3. DM2 4. Dementia H&P: HPI History of Present Illness Chief complaint: Increasing confusion Narrative: Date/time of exam: 01/07/23 SHORT STAY SUMMARY This is a 77-year-old female patient with a past medical history as outlined below significant for ESRD on hemodialysis q. M, W, F, DM 2, paroxysmal A-fib, and dementia; Who presented to the ED yesterday afternoon due to family concerns of increasing confusion. The patient just had an appointment with her usual systems programmer analyst for medication review. The ED provider talked to the systems programmer analyst and neither of them had noted any change in the patient's mentation. Work-up in the ED did note a UTI with leukocytosis and initial elevated lactic acid and so the patient was placed in the hospital in observation overnight under the hospitalist service. At the time of my exam the patient is sitting up in a bedside chair. She is awake and alert and oriented x3. I do not see any clinical evidence of confusion at this time. It is possible that a UTI could have contributed to mild worsening in mental acuity over the last few weeks. As the patient's condition has returned to her baseline, she is being discharged home in stable condition with home health services for strengthening and nursing monitoring of the patient's condition. She was treated with Rocephin in the hospital and has been prescribed cefdinir that is renally dosed at discharge to be taken after dialysis. A TSH was taken and noted to be high, but a reflex FT3 was low and FT4 was normal suggesting subclinical hypothyroidism consistent with her chronic renal disease. We defer to the patient's PCP if this should be treated or monitored. Review of Systems ROS Status of ROS 10 or more systems reviewed and unremarkable except as noted in history and below [facility] Medical History (Updated 01/07/23 @ 12:52 by Katalina Lu NP) Contusion of multiple sites ?T07.XXXA - Unspecified multiple injuries, initial encounter (ICD-10) Dementia ?F03.90 - Unspecified dementia, unspecified severity, without behavioral disturbance, psychotic disturbance, mood disturbance, and anxiety (ICD-10) End stage renal disease on dialysis ?N18.6 - End stage renal disease (ICD-10) ?Z99.2 - Dependence on renal dialysis (ICD-10) Fracture of fifth metatarsal bone of left foot ?S92.352A - Displaced fracture of fifth metatarsal bone, left foot, initial encounter for closed fracture (ICD-10) Laceration of scalp ?S01.01XA - Laceration without foreign body of scalp, initial encounter (ICD- 10) Renal failure, chronic ?N18.9 - Chronic kidney disease, unspecified (ICD-10) Symptomatic bradycardia ?R00.1 - Bradycardia, unspecified (ICD-10) Syncope ?R55 - Syncope and collapse (ICD-10) Type 2 diabetes mellitus with hyperglycemia ?E11.65 - Type 2 diabetes mellitus with hyperglycemia (ICD-10) Surgical History Hx of shoulder replacement ?Z96.619 - Presence of unspecified artificial shoulder joint (ICD-10) Family History Father Family history of CHF (congestive heart failure) Family history of cancer Family history of hypertension Family history of stroke Mother Family history of cancer Family history of diabetes mellitus Brother Family history of cancer Social History Within the past year, how often did you have a drink containing alcohol: never Score interpretation: A score less than 3 is consistent with normal alcohol consumption. 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 Highest level of school completed/degree received: high school graduate Are you now , , , , never or living with a partner: In a typical week, how many times do you talk on the telephone with family, friends, or neighbors: twice per week How often do you get together with friends or relatives: twice per week How often do you attend episcopal or tenriism services: never Do you belong to any clubs or organizations such as episcopal groups unions, fraternal or athletic groups, or school groups: no Total score: 1 Score interpretation: A score of less than or equal to 1 indicates the most socially isolated. Little interest or pleasure in doing things: not at all Feeling down, depressed, or hopeless: not at all Feel stressed/tense/nervous/anxious/difficulty sleeping: only a little Meds Home Medications and Allergies Home Medications Medication Instructions Recorded Confirmed Type aspirin 81 mg tablet,delayed 81 mg PO DAILY 12/13/22 01/06/23 History release (Adult Low Dose Aspirin) atorvastatin 40 mg tablet 40 mg PO BEDTIME 12/13/22 01/06/23 History calcium acetate(phosphat bind) 667 667 mg PO TID 12/13/22 01/06/23 History mg capsule citalopram 40 mg tablet 40 mg PO DAILY 12/13/22 01/06/23 History docusate sodium 100 mg capsule 100 mg PO BID 12/13/22 01/06/23 History (Colace) furosemide 20 mg tablet 60 mg PO BID 12/13/22 01/06/23 History insulin lispro 100 unit/mL 1 sliding scale dose subcut 12/13/22 01/06/23 History subcutaneous pen (Humalog Tempo USEASDIRECTD Pen (U-100) Insulin) midodrine 5 mg tablet 5 mg PO TID PRN hypotension 12/13/22 01/06/23 History multivitamin (Daily Multi-Vitamin 1 tab PO DAILY 12/13/22 01/06/23 History tablet) oxycodone-acetaminophen 5 mg-325 1 tab PO Q6H PRN pain 12/13/22 01/06/23 History mg tablet pantoprazole 40 mg tablet,delayed 40 mg PO DAILY 12/13/22 01/06/23 History release pramipexole 0.5 mg tablet 0.5 mg PO QPM 12/13/22 01/06/23 History sennosides 8.6 mg tablet (senna) 8.6 mg PO BID 12/13/22 01/06/23 History acetaminophen 650 mg 650 mg PO Q8H PRN pain 01/06/23 01/06/23 History tablet,extended release (Arthritis Pain Relief (acetaminophen) ER) albuterol sulfate 0.63 mg/3 mL 0.63 mg continuous nebulization 01/06/23 01/06/23 History solution for nebulization Q4H PRN shortness of breath or wheezing amiodarone 200 mg tablet (Pacerone) 200 mg PO DAILY 01/06/23 01/06/23 History fluticasone fur. 100 mcg-umeclid 1 inh inhalation DAILY 01/06/23 01/06/23 History 62.5 mcg-vilant 25 mcg inhalat.powder (Trelegy Ellipta) nystatin 100,000 unit/mL oral 5 ml PO Q6H 01/06/23 01/06/23 History suspension cefdinir 300 mg capsule See Rx Instructions .Route 01/07/23 Rx .COMPLEX 6 days #3 caps Allergies Allergy/AdvReac Type Severity Reaction Status Date / Time lisinopril Allergy Intermediate Verified 07/11/22 21:15 Exam Constitutional Vital Signs, click to edit/add: Last Vital Signs Temp 98 F 01/07/23 05:11 Pulse 64 01/07/23 12:09 Resp 18 01/07/23 05:11 BP 106/68 01/07/23 09:34 Pulse Ox 99 01/07/23 12:03 O2 Del Method Nasal Cannula 01/07/23 12:03 O2 Flow Rate 3 01/07/23 12:03 Common normals: no apparent distress, oriented x3, alert and well nourished General appearance: cooperative Orientation/consciousness: Yes awake HENMT Common normals: normocephalic, head/scalp atraumatic, hearing grossly normal bilaterally, external nose normal and moist oral mucous membranes Eye Common normals: PERRL, EOMs intact bilaterally, conjunctivae normal and no scleral icterus Alignment: alignment normal Eyelid: eyelids normal Neck & C-Spine Common normals: full ROM, supple and no JVD Chest Common normals: inspection of chest normal Chest: symmetrical chest wall rise Respiratory Common normals: normal respiratory effort, no retractions, no use of accessory muscles and clear to auscultation bilaterally Effort & inspection: able to speak in complete sentences Cardio Common normals: no JVD, regular rate, regular rhythm, S1 normal heart sound, no gallops, no clicks, no rub and peripheral pulses 2+ throughout; S2 heart sound abnormal (S2 snap) Heart sounds: murmur (HSM 2/6) GI Common normals: Normal to inspection, nondistended, normoactive bowel sounds present, soft to palpation, non-tender, no hepatosplenomegaly, no masses and no bruits Bladder/kidney exam: bladder normal to palpation Back & Pelvis Common normals: thoracic and lumbar spine normal to inspection Extremity Common normals: normal capillary refill and no pedal edema General: normal exam except as noted; no clubbing and no cyanosis Neuro [place] Coma Scale: GCS not evaluated Common normals: CN's II-XII intact bilaterally, moves all extremities, no focal motor deficits and no sensory deficits noted Speech: speech normal Psych Common normals: mental status grossly normal, thought process normal, affect normal and activity/motor behavior normal Results Labs Labs: Short CBC 01/06/23 01/07/23 Range/Units 15:10 04:41 WBC 13.9 H 9.8 (4.0-11.0) 10^3/uL Hgb 10.8 L 8.8 L (12.0-16.0) g/dL Hct 35.9 L 29.9 L (36.0-48.0) % Plt Count 422 335 (150-450) 10^3/uL BMP 01/06/23 01/07/23 15:10 04:41 Sodium 130 L 133 L Potassium 3.5 3.2 L Chloride 90 L 95 L Carbon Dioxide 28.8 29.8 BUN 35.0 H 46.0 H Creatinine 2.61 H 3.34 H Glucose 270 H 187 H Calcium 9.7 8.9 Liver Function 01/06/23 Range/Units 15:10 Total Bilirubin 0.5 (0.2-1.0) mg/dL AST 19 (15-37) U/L ALT 27 (14-59) U/L Alkaline Phosphatase 200 H (46-116) U/L Albumin 2.6 L (3.4-5.0) g/dL Urine 01/06/23 Range/Units 15:25 Urine Color Yellow (YELLOW) Urine Clarity Cloudy A (CLEAR) Urine pH 6.0 (5.0-9.0) Ur Specific [place] 1.020 (1.005-1.025) Urine Protein 100 A (NEG/TRACE) mg/dL Urine Glucose (UA) Negative (NEGATIVE) mg/dL Pulse Oximetry Attestation: I have reviewed the pertinent pulse oximetry results. Assessment and Plan Assessment and Plan (1) Urinary tract infection: (2) Subclinical hypothyroidism: (3) End stage renal disease on dialysis: (4) Type 2 diabetes mellitus with hyperglycemia: (5) Dementia: Plan UTI treated with Rocephin in the hospital. Cefdinir at d/c renally dosed. Defer to PCP to monitor subclinical hypothyroidism. Continue dialysis as scheduled q MWF
--- NOTE | 2023-01-07 13:27 | CM.NOTE ---
Faxed clinical and discharge to [facility] to continue Home Health.
--- NOTE | 2023-01-07 14:02 | CM.NOTE ---
Spoke with intake at [facility] and fax was received regarding pt discharge.
--- NOTE | 2023-01-08 14:47 | CM.DCFOLLOWU ---
Person spoke with: Patient How are you feeling? feeling pretty good How is your pain? none Did you understand your discharge instructions? yes Do you have any questions about your discharge instructions? yes Were you given any prescriptions at discharge? yes Were you able to get your prescriptions filled? yes Do you understand how to take your medications as ordered? yes, picked up my antibiotic and getting ready to take it now. Do you have any questions about your follow up appointment and do you plan to keep your follow up appointment? No. Planning on keeping follow up appointment with Dr. Aldrich on 01/13 Is there anything else that you would like to discuss? no Questions/Comments/Concerns/Other: n/a
== END 2023-01-07 13:36 | disposition home health service (06) ==
LOC: ER 16:16 → MS 01-07 09:30
PROVIDERS: Admitting Provider Family Medicine; Emergency Provider Emergency Medicine Emergency Medical Services; PCP Internal Medicine; Visit Provider Nurse Practitioner
DX: N39.0 Urinary tract infection, site not specified (principal); E11.22 Type 2 diabetes mellitus with diabetic chronic kidney disease; N18.6 End stage renal disease; Z99.2 Dependence on renal dialysis; F03.90 Unspecified dementia, unspecified severity, without behavioral disturbance, psychotic disturbance, mood disturbance, and anxiety; E11.65 Type 2 diabetes mellitus with hyperglycemia; E03.8 Other specified hypothyroidism; Z87.81 Personal history of (healed) traumatic fracture; Z96.619 Presence of unspecified artificial shoulder joint; Z87.891 Personal history of nicotine dependence; Z79.82 Long term (current) use of aspirin; Z79.899 Other long term (current) drug therapy; Z79.4 Long term (current) use of insulin; B96.1 Klebsiella pneumoniae [K. pneumoniae] as the cause of diseases classified elsewhere
CPT/HCPCS: 36415; 51798; 80048; 80053; 81001; 82948; 83605; 84439; 84443; 84481; 85025; 87086; 87150; 87186; 93005; 94761; 96361; 96365; 96366; 99285; G0378

== ENCOUNTER 2023-03-31 00:22 | Emergency (ER) | payer MEDICARE, SELFPAY ==
[2023-03-31 00:29] VITALS: BP 117/68; PULSE 81; RESP 20; TEMP 36.5; O2SAT 97; BMI 22.3
--- OUTSIDE RECORDS SUMMARY | 2023-03-31 00:34 | XMS_ITS | CCD ---
Author Name Unknown Address [address] [place] [address] Organization [facility] Care Team Providers Care Agronomy Technician Name Role Phone COLBY KAY Admitting Unavailable MARCUS BELCHER Referring Unavailable LILY ALDRICH Primary Care Unavailable YOVANI AYON Attending Unavailable NC Procedure Practitioner Unavailab CHELI Brar Surgeon Unavailable Lily Aldrich Primary Care Provider Narinder Toussaint Attending Provider Adalberto Lewis Attending Provider [phone] Narinder Toussaint Unavailable Geronimo Fofana Unavailable Tessie Walker Unavailable Maxime Bhatti Unavailable PETER Aldrich Primary Care Provider FERNANDO Walker Attending Provider MD Geronimo Fofana Other Provider RAFAEL Banks Other Provider UnavailRAFAEL Garcia Other Provider Unavailable MD David South Other Provider FERNANDO Walker Other Provider [phone] MD Ronald Gutierrez Other Provider [phone] MD Maxime Bhatti Other Provider MD Annette Tenorio Admit Provider MD Annette Tenorio Attending Provider [phone] MD Yamileth Levi II Other Provider MD Geronimo Fofana Attending Provider PETER Aldrich Primary Care Provider MD Geronimo Fofana Other Provider RAFAEL Banks Other Provider Unavailabl RAFAEL Anand Other Provider Unavailable MD David South Other Provider FERNANDO Walker Other Provider MD Ronald Gutierrez Other Provider MD Maxime Bhatti Other Provider MD Annette Tenorio Admit Provider MD Annette Tenorio Attending Provider MD Yamileth Levi II Other Provider MD Geronimo Fofana Attending Provider MD Maxime Bhatti Attending Provider PETER Aldrich Primary Care Provider [phone] MD Azar Palmer Jr Emergency Provider MD Gary Almaguer Admit Provider MD Gary Almaguer Attending Provider MD Narinder Toussaint Other Provider MD Wood Zavala Other Provider MD Jackson De Santiago Other Provider MD Godwin Larios Other Provider MD Gernoimo Fofana Other Provider MD Simone Godoy Attending Provider PETER Aldrich Primary Care Provider MD Geronimo Fofana Attending Provider MD Maxime Bhatti Attending Provider PETER Aldrichel Primary Care Provider MD Azar Palmer Jr Emergency Provider MD Gary Almaguer M Admit Provider [phone] MD Narinder Toussaint Other Provider MD Wood Zavala Other Provider MD Jackson De Santiago Other Provider [phone] MD Godwin Larios Other Provider MD Geronimo Fofana Other Provider MD Simone Godoy Attending Provider MD Maxime Bhatti Attending Provider [phone] DO Horacio Moreno Emergency Provider [phone] MD Jamal Schaefer Admit Provider [phone] MD Wilmer Azevedo Other Provider MD Teresa Pagan Attending Provider DR LILY ALDRICH Admitting Unavailable ALDRICH, DR BAUTISTA Attending Unavailable ALDRICH, DR BAUTISTA Consulting Unavailable NASIMA, DR BAUTISTA Primary Care Unavailable ZIEBER, DR ZEKE Kulkarni Consulting Unavailable NASIMA, DR BAUTISTA Primary Care Unavailable WEST, DR GENARO Vasquez Consulting Unavailable SAMSA ., KIMBERLY Attending Unavailable SAMSA ., KIMBERLY Admitting Unavailable SAMSA ., KIMBERLY Consulting Unavailable NASIMA, DR BAUTISTA Primary Care Unavailable WEST, DR GENARO Vasquez Consulting Unavailable ELTAHAWY, DR LAST Attending Unavailable ELTAHAWY, DR LAST Admitting Unavailable ELTAHAWY, DR LAST Consulting Unavailable NASIMA, DR BAUTISTA Primary Care Unavailable MISC, DR HANNON Attending Unavailable MISC, DR HANNON Consulting Unavailable MISC, DR HANNON Admitting Unavailable NASIMA, DR BAUTISTA Primary Care Unavailable DR DARINEL MORATAYA Admitting Unavailable ALYSE ., DR TENA Attending Unavailable ALYSE .DR TENA Consulting Unavailable ZIEBER, DR ZEKE Kulkarni Consulting Unavailable NADERER, DR JULIUS Early Consulting Unavailable MARKER ., DR SANCHEZ Consulting Unavailable TOMASA ., JOSE Consulting Unavailable NASIMA, DR BAUTISTA Primary Care Unavailable SHAIKH Brendon MARQUEZ Admitting Unavailable SHAIKH Brendon MARQUEZ Attending Unavailable ALYSE .DR TENA Consulting Unavailable WEST, DR GENARO Vasquez Consulting Unavailable ALEA, DR ZEKE Kulkarni Consulting Unavailable PAUL, ELHAM Consulting Unavailable TOMASA ., JOSE Consulting Unavailable ALMA, H Consulting Unavailable ALEXEI, DR JULIUS Early Admitting Unavailable NADERER, DR JULIUS Early Attending Unavailable NASIMA, DR BAUTISTA Primary Care Unavailable MICHELLE, DR GENARO Vasquez Consulting Unavailable SAMSA ., KIMBERLY Procedure Practitioner Unavailab jennyfer COSBY, DR ZEKE Kulkarni Consulting Unavailable NADEREAlbaro, DR JULIUS Early Consulting Unavailable SAMSA ., KIMBERLY Consulting Unavailable YOVANNY, PETER Consulting Unavailable TOMASA ., JOSE Consulting Unavailable ALMA, SHAIKH Brendon Consulting Unavailable BETTE, GENARO Consulting Unavailable DARAMOLANAYANANIKI Consulting Unavailable SAÚL ENCARNACION Consulting Unavailable NASIMA, DR BAUTISTA Consulting Unavailable NASIMA, DR BAUTISTA Primary Care Unavailable SAMSA ., KIMBERLY Attending Unavailable SAMSA ., KIMBERLY Admitting Unavailable SAMSA ., KIMBERLY Consulting Unavailable NASIMA, DR BAUTISTA Primary Care Unavailable NIKUNJ CONNOLLY Consulting Unavailable CATHLEEN, NIKUNJ Attending Unavailable NIKUNJ CONNOLLY Admitting Unavailable PENNIE AWAD Consulting Unavailable NASIMA, DR BAUTISTA Primary Care Unavailable MISC, DR HANNON Attending Unavailable MISC, DR HANNON Admitting Unavailable MISC, DR HANNON Consulting Unavailable NASIMA, DR BAUTISTA Primary Care Unavailable MISC, DR HANNON Admitting Unavailable MISC, DR HANNON Attending Unavailable MISC, DR HANNON Consulting Unavailable BAKHOUS, AZIZ Admitting Unavailable BAKHOUS, AZIZ Attending Unavailable BAKARNULFOS, AZIZ Consulting Unavailable NASIMA, DR BAUTISTA Primary Care Unavailable NASIMA, DR BAUTISTA Primary Care Unavailable ALEA, DR ZEKE Kulkarni Consulting Unavailable SAMSA ., KIMBERLY Attending Unavailable SAMSA ., KIMBERLY Admitting Unavailable SAMSA ., KIMBERLY Consulting Unavailable Nasima II, Dr. Lily Elizabeth Primary Care Dorota vailable Nasima II, Dr. Lily Elizabeth Primary Care Dorota vailable Nasima II, Dr. Lily Elizabeth Primary Care Dorota vailable PETER Aldrich Primary Care Provider [phone] MD Azar Palmer Jr Emergency Provider MD Gary Almaguer Admit Provider MD Gary Almaguer Attending Provider PETER Aldrich Primary Care Provider MD Azar Palmer Jr Emergency Provider MD Gary Almaguer Admit Provider MD Narinder Toussaint Other Provider MD Wood Zavala Other Provider MD Jackson De Santiago Other Provider MD Godwin Larios Other Provider MD Geronimo Fofana Other Provider DO Carlton Mtz Attending Provider [phone] MD Edie Michel Other Provider DO Horacio Moreno Emergency Provider DO Pennie Love Admit Provider DO Pennie Love Attending Provider TuDO Horacio foss Emergency Provider DO Pennie Love Admit Provider MD Teresa Pagan Attending Provider [phone] MD Edie Michel Attending Provider [phone] PROVIDER, UNKNOWN Attending Unavailable PROVIDER, UNKNOWN Admitting Unavailable PETER Aldrich Huntington Primary Care Provider MD Azar Palmer Jr Emergency Provider MD Gary Almaguer Admit Provider MD Narinder Toussaint Other Provider MD Wood Zavala Other Provider MD Jackson De Santiago Other Provider MD Godwin Larios Other Provider MD Geronimo Fofana Other Provider DO Carlton Mtz Attending Provider MD Edie Michel Other Provider DO Horacio Moreno Emergency Provider DO Pennie Love Admit Provider [phone] MD Teresa Pagan Attending Provider MD Edie Michel Attending Provider MD Moo Villanueva Other Provider MD Jamal Schaefer Admit Provider MD Annette Tenorio Attending Provider [phone] LILY ALDRICH Primary Care Physician DO Carlton Mtz Admit Provider MD Tatiana Loya Attending Provider PETER Aldrich Primary Care Provider [phone] MD Edie Michel Other Provider MD Wood Zavala Other Provider MD Moo Villanueva Other Provider [phone] MD Narinder Toussaint Other Provider MD Azar Palmer Jr Emergency Provider MD Wood Zavala Attending Provider [phone] DOLCE, STEPHAN R Attending Unavailable DOLCE, STEPHAN R Referring Unavailable DOLCE, STEPHAN R Attending Unavailable LILY ALDRICH Attending Unavailable HEMMER DIANNA M Attending Unavailable LILY ALDRICH Attending Unavailable DOLCE, STEPHAN R Attending Unavailable RYAN AHUJA Attending Unavailable NADEEM SANCHEZ Attending Unavailable PRASHANTH, LAURA Attending Unavailable DES, ANGELICA Referring Unavailable PRASHANTH, LAURA Attending Unavailable ELTAHAWCHELI Gil Attending Unavailable STEENHOFF, ANALILIA Referring Unavailable STEENHOFF, ANALILIA Referring Unavailable NEISHA AVILA Referring Unavailabl e JOSEFINA, HANI Admitting Unavailable RONA, SARMED Attending Unavailable RONA, SARMED Referring Unavailable PRASHANTH, LAURA Attending Unavailable MD Marcel Arreaga Emergency Provider [phone] MD Jamal Schaefer Attending Provider Lily Aldrich Primary Care Unavailable Wilmer Azevedo Consulting Unavailable Olive, Jamal Admitting Unavailable Pagan, Teresa Attending Unavailable Elashi, Essam Consulting Unavailable Lucas, Wood Consulting Unavailable Singhania, Jackson Consulting Unavailable Larios, Godwin Consulting Unavailable Bakhous, Aziz Consulting Unavailable Lily Aldrich Primary Care Unavailable Broomar, Gary M Admitting Unavailable Carlton Mtz Attending Unavailabl e Elashi, Essam Consulting Unavailable Lucas, Wood Consulting Unavailable Singhania, Jackson Consulting Unavailable Larios, Godwin Consulting Unavailable Bakhous, Aziz Consulting Unavailable Anand, Edie Consulting Unavailable Anand, Edie Consulting Unavailable Lily Aldrich Primary Care Unavailable Yusuf Paganhar Attending Unavailable Pennie Love Admitting Unavailable Lucas, Wood Consulting Unavailable Lucas, Wood Attending Unavailable Lily Aldrich Primary Care Unavailable Lucas, Wood Admitting Unavailable Lily Aldrich Primary Care Unavailable Maxime Bhatti Admitting Unavailabl e Langlusí, Maxime Alaniz Attending Unavailabl e Lily Aldrich Primary Care Unavailable Langluís, Maxime Alaniz Attending Unavailabl e Langenberg, Maxime T Admitting Unavailabl e Lily Aldrich Primary Care Unavailable Anand Edie Attending Unavailable Anand, Edie Admitting Unavailable Lily Aldrich Primary Care Unavailable Moo Villanueva Consulting Annette Hernandez Attending Unavailable Olive, Jamal Admitting Unavailable Anand, Edie Consulting Unavailable Elashi, Essam Consulting Unavailable Elashi, Essam Consulting Unavailable Lily Aldrich Primary Care Unavailable Daromar, Gary Mc Attending Unavailable Olive, Jamal Admitting Unavailable Lily Aldrich Primary Care Unavailable Tatiana Loya Attending Unavailable Moo Villanueva Consulting Carlton Vora Admitting Unavailabl e Anand, Edie Consulting Unavailable Elashi, Essam Consulting Unavailable DolJulius gallagher Attending Unavailable Dolce, Julius Hull Attending Unavailable Dolce, Julius Hull Attending Unavailable Dolce, Stephan R Attending Unavailable Dolce, Stephan R Admitting Unavailable Dolelliott, Stephan R Referring Unavailable Dolelliott, Stephan R Referring Unavailable DolJulius gallagher D Attending Unavailable Unavailable Unavailable Unavailable Allergies Allergy Classification Reported Allergen(s) Allergy Type Date of Onset Reaction(s) Facility (1 source) Benzapril; Translations: [Unknown] Propensity to adverse reactions (disorder) 2 [facility] Repository (20 sources) Lisinopril; Translations: [lisinopril] Drug Allergy 3 Cough, Unknown [facility] (2 sources) benazepril; Translations: [BENAZEPRIL] Drug Allergy [address] [facility] Repository (4 sources) gabapentin; Translations: [GABAPENTIN] Drug Allergy 3 Swelling of Lip/Tongue/Thro at [facility] Repository (1 source) meloxicam; Translations: [MELOXICAM] Drug Allergy 6 [facility] Repository Medications Current Medications Medication Drug Class(es) Dates Sig (Normalized) Sig (Original) 8 hr acetaminophen 650 mg extended release oral tablet (2 sources) Start: 03-05-2023 take 1 tablet by mouth every twelve hours Acetaminophen (Arthritis Pain Reliever) 650 mg tablet extended release Active 650 MG PO Q12H March 05, 2023 12:00am acetaminophen 325 mg / oxyCODONE hydrochloride 5 mg oral tablet (20 sources) Opioid Agonist Start: 12-06-2022 take 1 tablet by mouth every four to six hours Oxycodone-Acetamino phen Active 1 TAB PO EVERY 4-6 HOURS December 05, 2022 11:00pm Start: 05-16-2020 End: 06-26-2021 take 1 tablet by mouth four times daily Oxycodone-Acetaminophen Discontinued 1 T AB PO Four times daily May 15, 2020 11:00pm June 26, 2021 9:51am albuterol 0.21 mg/ml inhalation solution (20 sources) beta2-Adrenergic Agonist Start: 06-26-2021 take 0.63 mg by inhalation four times daily Albuterol Sulfate Active 0.63 MG INHALATION Four times daily June 25, 2021 11:00pm Albuterol Sulfat e 0.63 MG/3ML as directed Inhalation Active ANORO ELLIPTA 62.5 mcg/25 mcg (13 sources) take 1 puff(s) by inhalation once daily ANORO ELLIPTA 62.5 mcg/25 mcg 1 PUFF INHALATION DAILY Active aspirin 81 mg delayed release oral tablet (20 sources) Platelet Aggregation Inhibitor, Nonsteroidal Anti-inflammatory Drug Start: 0 take 81 mg by mouth once daily Aspirin Active 81 MG PO Daily November 24, 2019 11:00pm Start: 11-19-2016 End: 11-25-2019 take 1 tablet by mouth once daily in the morning Aspirin Discontinued 81 MG PO Every morning November 18, 2016 11:00pm November 25, 2019 7:05am 1 tablet PO daily atorvastatin 40 mg oral tablet (20 sources) HMG-CoA Reductase Inhibitor Start: 11-19-2016 take 1 tablet by mouth once daily in the evening Atorvastatin Active 40 MG PO Every evening November 18, 2016 11:00pm 1 tablet PO daily busPIRone hydrochloride 10 mg oral tablet (2 sources) Start: 03-05-2023 take 10 mg by mouth twice daily Buspirone Active 10 MG PO Twice daily March 05, 2023 12:00am calcium acetate 667 mg oral capsule (15 sources) Start: 02-26-2022 take 667 mg by mouth once at mealtime Calcium Acetate(Phosphat Bind) Active 667 MG PO 3x/Day with meals 240 60 February 26, 2022 12:00am calcium carbonate 1500 mg oral tablet (15 sources) Start: 06-21-2020 take 1 tablet by mouth every twenty-four hours Calcium 600 MG 1 tablet with meals Orally Once a day June, Active cephalexin 500 mg oral capsule (1 source) Cephalosporin Antibacterial take 1 capsule by mouth every twelve hours Cephalexin 500 MG 1 capsule Orally TWICE A DAY Active cholecalciferol 0.025 mg oral tablet (20 sources) Vitamin D Start: 11-25-2019 take 1 tablet by mouth once daily Cholecalciferol (Vitamin D3) (Vitamin D3) 25 mcg (1,000 unit) Tablet Active 25 MCG PO Daily November 24, 2019 11:00pm take 1 tablet by darcy th every twenty-four hours Vitamin D (Cholecalciferol) 25 MCG (1000 UT) 1 tablet Orally Once a day Active citalopram 40 mg oral tablet (20 sources) Serotonin Reuptake Inhibitor Start: 11-25-2019 take 40 mg by mouth once daily Citalopram Active 40 MG PO Daily November 24, 2019 11:00pm 1 ml darbepoetin theodore 0.06 mg/ml injection (5 sources) Erythropoiesis-stim ulating Agent Start: 12-29-2022 Darbepoetin Theodore In Polysorbat (Aranesp (In Polysorbate)) 60 mcg/mL Solution Active MCG SOLUTION December 29, 2022 12:00am diclofenac sodium 0.01 mg/mg topical gel (9 sources) Nonsteroidal Anti-inflammatory Drug Start: 10-31-2022 Diclofenac Sodium (Voltaren Arthritis Pain) 1 % Gel Active 4 GM TOPICAL Four times daily 0 October 30, 2022 11:00pm epoetin theodore-epbx 05150 UNT/ML Injectable Solution [Retacrit] (6 sources) Retacrit 35083 UNIT/ML as directed Injection Active 15 ml ferric carboxymaltose 50 mg/ml injection (1 source) Start: 05-16-2021 Injectafer 750 MG/15ML as directed Intravenous every 2 weeks for 14 days May, Active Fluticasone-Umeclidin -Vilanter (14 sources) Anticholinergic, Corticosteroid, beta2-Adrenergic Agonist Start: 12-29-2022 Fluticasone-Umecl idin-Vilanter (Trelegy Ellipta) 100-62.5-25 mcg blister with device Active 1 INH INHALATION Q24H December 29, 2022 12:00am Start: 12-29-2022 Fluticasone-Um eclidin-Vilanter (Trelegy Ellipta) 100-62.5-25 mcg blister with device Active INHALATION December 29, 2022 12:00am Start: 12-06-2022 Fluticasone-Um eclidin-Vilanter (Trelegy Ellipta) 100-62.5-25 mcg blister with device Active 1 EACH INHALATION Daily December 05, 2022 11:00pm Start: 12-06-2022 Fluticasone-Um eclidin-Vilanter (Trelegy Ellipta) 100-62.5-25 mcg blister with device Active 1 EACH INHALATION Daily December 06, 2022 12:00am furosemide 20 mg oral tablet (20 sources) Loop Diuretic Start: 10-31-2022 take 60 mg by mouth twice daily at mealtime Furosemide Active 60 MG PO Twice daily 180 30 October 30, 2022 11:00pm Take twice a day with meals, at least 6 hours apart. Further refills or adjustments per Nephrology. Start: 11-19-2016 take 1 tablet by darcy th once daily in the morning Furosemide Active 40 MG PO Every morning November 19, 2016 11:30am 1 TABLET PO DAILY Start: 11-19-2016 End: 10-31-2022 take 1 tablet by mouth once daily Furosemide Discontinued 60 MG PO Twice daily 60 November 20, 2021 11:37am October 31, 2022 2:40pm 1 TABLET PO DAILY take 1.5 tablets by mouth twice daily Furosemide 40 MG 1.5 tabs Orally Twice a day for 90 days Active take 1.5 tablets by mouth once daily Furosemide 40 MG 1.5 tabs Orally Once a day for 90 day(s) Active take 1 tablet by darcy th every twelve hours Furosemide 40 MG 1 tablet Orally bid for 90 day(s) Active glucose 0.4 mg/mg oral gel (19 sources) Start: 11-20-2021 Dextrose (Glutose-15) 40 % Gel Active 0.6 GM PO PRN 112.5 November 19, 2021 11:00pm Insulin Aspart 100 UNIT/ML (9 sources) Insulin Aspart 1 00 UNIT/ML as directed Subcutaneous SLIDING SCALE BEFORE EACH MEAL Active Insulin Lispro (Humalog Kwikpen Insulin) 100 unit/mL insulin pen (5 sources) Start: 12-29-2022 Insulin Lispro (Humalog Kwikpen Insulin) 100 unit/mL insulin pen Active SUBCUT December 29, 2022 12:00am 2.5 ml iron sucrose 20 mg/ml injection (3 sources) Parenteral Iron Replacement Start: 11-28-2021 take 20 mg intravenously every week Venofer 20 MG/ML as directed Intravenous every week for 35 days Nov, Active Start: 11-28-2021 take 20 mg intravenously every week Venofer 20 MG/ML as directed Intravenous every week for 35 days Nov, Active magnesium oxide 400 mg oral tablet (1 source) Start: 03-07-2023 take 400 mg by mouth once daily Magnesium Oxide Active 400 MG PO Daily March 07, 2023 12:00am metoprolol tartrate 25 mg oral tablet (10 sources) beta-Adrenergic Madhu Start: 03-05-2023 take 25 mg by mouth once daily Metoprolol Tartrate Active 25 MG PO Daily March 05, 2023 12:00am Start: 12-09-2022 End: 12-16-2022 take 12.5 mg by mouth twice daily Metoprolol Succinate Discontinued 12.5 MG PO Twice daily December 08, 2022 11:00pm December 16, 2022 4:06pm mexiletine hydrochloride 200 mg oral capsule (1 source) Antiarrhythmic Start: 03-07-2023 take 200 mg by mouth every eight hours Mexiletine Active 200 MG PO Every 8 hours March 07, 2023 12:00am Multivitamin Adult - (15 sources) Multivitamin Murray lt - Orally Active Multivitamin preparation (20 sources) Start: 09-07-2019 take 1 tablet by mouth once daily Multivitamin Active 1 TAB PO Daily September 07, 2019 10:40am Start: 09-07-2019 take 1 tablet by darcy th once daily Multivitamin Active 1 TAB PO Daily September 06, 2019 11:00pm Start: 09-07-2019 take 1 tablet by darcy th once daily Multivitamin Active 1 TAB PO Daily September 07, 2019 12:00am ondansetron 4 mg disintegrating oral tablet (5 sources) Serotonin-3 Receptor Antagonist Start: 12-29-2022 take 4 mg by mouth every six hours Ondansetron Active 4 MG PO Q6H December 29, 2022 12:00am pantoprazole 40 mg delayed release oral tablet (20 sources) Proton Pump Inhibitor Start: 05-17-2022 take 40 mg by mouth once daily Pantoprazole Active 40 MG PO Daily May 16, 2022 11:00pm Start: 05-02-2022 End: 05-17-2022 take 20 mg by mouth once daily Pantoprazole Discontinu ed 20 MG PO Daily May 01, 2022 11:00pm May 17, 2022 3:04pm take 1 tablet by darcy th every twenty-four hours Pantoprazole Sodium 20 MG 1 tablet Orally Once a day Active pramipexole dihydrochloride 0.5 mg oral tablet (14 sources) Nonergot Dopamine Agonist Start: 12-06-2022 take 1 tablet by mouth once daily at bedtime Pramipexole (Mirapex) 0.5 mg Tablet Active 0.5 MG PO Daily at bedtime December 29, 2022 12:00am Sennosides (Senna) 8.6 mg tablet (14 sources) Start: 03-05-2023 take 1 tablet by mouth twice daily Sennosides (Senna) 8.6 mg tablet Active 8.6 MG PO Twice daily March 05, 2023 12:00am Start: 05-17-2022 End: 12-29-2022 take 1 tablet by mouth twice daily Sennosides (Senna) 8.6 mg tablet Discontinued 8.6 MG PO Twice daily May 16, 2022 11:00pm December 29, 2022 10:21pm Start: 05-17-2022 take 1 tablet by darcy th twice daily Sennosides (Senna) 8.6 mg tablet Active 8.6 MG PO Twice daily May 16, 2022 11:00pm Start: 05-17-2022 take 1 tablet by darcy th twice daily Sennosides (Senna) 8.6 mg tablet Active 8.6 MG PO Twice daily May 17, 2022 12:00am Trelegy Ellipta (2 sources) Trelegy Ellipta Active Vitamin D (Cholecalciferol) 25 MCG (1000 UT) (6 sources) take 1 tablet by darcy th once daily Vitamin D (Cholecalciferol) 25 MCG (1000 UT) 1 tablet Orally Once a day Active Completed/Discontinued Medications Medication Drug Class(es) Dates Sig (Normalized) Sig (Original) acetaminophen 325 mg / HYDROcodone bitartrate 7.5 mg oral tablet (20 sources) Opioid Agonist Start: 11-16-2021 End: 12-06-2022 take 1 tablet by mouth every six hours Hydrocodone-Acetami nophen Discontinued 1 TAB PO Q6H 8 2 February 26, 2022 December 06, 2022 9:42pm Start: 05-18-2020 End: 11-16-2021 take 1 tablet by mouth every six hours Hydrocodone-Acetaminophen Discontinued 1 TAB PO Q6H 20 May 18, 2020 November 16, 2021 12:04pm Start: 11-25-2019 End: 05-16-2020 take 1 tablet by mouth every six hours Hydrocodone-Acetaminophen Discontinued 1 TAB PO Q6H 28 7 November 25, 2019 May 16, 2020 12:41pm amiodarone hydrochloride 200 mg oral tablet (16 sources) Antiarrhythmic Start: 12-30-2022 End: 01-02-2023 take 200 mg by mouth once daily Amiodarone Discontinued 200 MG PO Daily December 30, 2022 12:00am January 02, 2023 10:40am Start: 12-16-2022 End: 12-29-2022 take 400 mg by mouth twice daily Amiodarone Discontinued 400 MG PO Twice daily 56 December 16, 2022 12:00am December 29, 2022 10:22pm Start: 12-16-2022 End: 12-29-2022 take 400 mg by mouth once daily Amiodarone Discontinued 200 MG PO Daily December 16, 2022 12:00am December 29, 2022 10:22pm start after 400 mg twice daily for 14 days amoxicillin 500 mg / clavulanate 125 mg oral tablet (10 sources) Penicillin-class Antibacterial Start: 10-29-2022 End: 10-31-2022 take 1 tablet by mouth three times daily Amoxicillin-Pot Clavulanate Discontinued 1 TAB PO Three times daily October 28, 2022 11:00pm October 31, 2022 2:40pm baclofen 10 mg oral tablet (20 sources) gamma-Aminobutyric Acid-ergic Agonist Start: 06-26-2021 End: 11-20-2021 take 10 mg by mouth once daily Baclofen Discontinued 10 MG PO Daily June 25, 2021 11:00pm November 20, 2021 11:41am take 1 tablet by mouth every twe lve hours Baclofen 10 MG 1 tablet as needed Orally Twice a day Active carvedilol 3.125 mg oral tablet (20 sources) alpha-Adrenergic Madhu, beta-Adrenergic Madhu Start: 10-31-2022 End: 12-09-2022 take 3.125 mg by mouth twice daily at mealtime Carvedilol Discontinued 3.125 MG PO Twice daily with meals October 30, 2022 11:00pm December 09, 2022 12:38pm Start: 05-17-2022 End: 10-31-2022 take 12.5 mg by mouth twice daily Carvedilol Discontinued 12.5 MG PO Twice daily May 16, 2022 11:00pm October 31, 2022 2:40pm Start: 11-25-2019 take 3.125 mg by darcy th twice daily Carvedilol Active 3.125 MG PO Twice daily November 25, 2019 8:05am Start: 11-25-2019 End: 05-17-2022 take 12.5 mg by mouth twice daily Carvedilol Discontinued 12.5 MG PO Twice daily November 24, 2019 11:00pm May 17, 2022 2:59pm [facility] hours Coreg 12.5 MG 1 Tablet Orally Twice a day Active cyclobenzaprine hydrochloride 10 mg oral tablet (20 sources) Muscle Relaxant Start: 11-19-2016 End: 09-07-2019 take 1 tablet by mouth three times daily Cyclobenzaprine Discontinued TABLET November 18, 2016 11:00pm September 07, 2019 9:42am 1 tablet PO TID docusate sodium 50 mg oral capsule (20 sources) Start: 05-17-2022 End: 05-17-2022 take 1 capsule by mouth twice daily Docusate Sodium (Colace) 50 mg Capsule Discontinued 50 MG PO Twice daily May 16, 2022 11:00pm May 17, 2022 3:45pm Start: 11-20-2021 take 100 mg by mouth twice daily Docusate Sodium Active 100 MG PO Twice daily 60 November 19, 2021 11:00pm Start: 11-16-2021 End: 02-22-2022 take 250 mg by mouth once daily Docusate Sodium Discon tinued 250 MG PO Daily November 15, 2021 11:00pm February 22, 2022 7:28pm take 1 capsule by [facility] every twenty-four hours Colace 100 MG 1 capsule as needed Orally Once a day Active 0.85 ml exenatide 2.35 mg/ml auto-injector (20 sources) GLP-1 Receptor Agonist Start: 05-16-2020 End: 02-22-2022 Exenatide Microspheres (Bydureon Bcise) 2 mg/0.85 mL auto-injector Discontinued 2 MG SUBCUT every week May 15, 2020 11:00pm February 22, 2022 7:27pm Bydureon 2 MG as directed Subcutaneous Not-Taking Bydureon 2 MG as directed Subcutaneous Active ferrous sulfate 325 mg oral tablet (20 sources) Start: 09-07-2019 End: 05-16-2020 take 1 tablet by mouth once Ferrous Sulfate (Iron) 325 mg (65 mg iron) Tablet Discontinued 325 MG PO every Friday, Friday, and Friday September 06, 2019 11:00pm May 16, 2020 12:40pm hydrALAZINE hydrochloride 50 mg oral tablet (20 sources) Arteriolar Vasodilator Start: 11-19-2016 End: 05-17-2022 take 1 tablet by mouth twice daily Hydralazine Discontinued 50 MG PO Three times daily November 18, 2016 11:00pm May 17, 2022 3:16pm 1 tablet PO BID take 1 tablet by darcy th every eight hours hydrALAZINE HCl 50 MG 1 tablet with food Orally Three times a day for 90 Active Insulin Aspart U-100 (Novolog Flexpen U-100 Insulin) 100 unit/mL (3 mL) Insulin Pen (19 sources) Start: 11-20-2021 End: 03-05-2023 inject 1 dose by subcutaneous injection once at mealtime Insulin Aspart U-100 (Novolog Flexpen U-100 Insulin) 100 unit/mL (3 mL) Insulin Pen Discontinued 1 sliding scale dose SUBCUT 3X/Day with meals and bedtime November 19, 2021 11:00pm March 05, 2023 5:47pm Start: 11-20-2021 inject 1 dose by sub cutaneous injection once at mealtime Insulin Aspart U-100 (Novolog Flexpen U-100 Insulin) 100 unit/mL (3 mL) Insulin Pen Active 1 sliding scale dose SUBCUT 3X/Day with meals and bedtime November 19, 2021 11:00pm Start: 11-20-2021 inject 1 dose by sub cutaneous injection once at mealtime Insulin Aspart U-100 (Novolog Flexpen U-100 Insulin) 100 unit/mL (3 mL) Insulin Pen Active 1 sliding scale dose SUBCUT 3X/Day with meals and bedtime November 20, 2021 12:00am Insulin Lispro (Humalog U-10 0 Insulin) 100 unit/mL solution (12 sources) Start: 05-17-2022 End: 05-17-2022 Insulin Lispro (Humalog U-10 0 Insulin) 100 unit/mL solution Discontinued SOLUTION May 16, 2022 11:00pm May 17, 2022 3:46pm Start: 05-17-2022 End: 05-17-2022 Insulin Lispro (Humalog U-10 0 Insulin) 100 unit/mL solution Discontinued SOLUTION May 17, 2022 12:00am Aishwarya 7th, 2023 4:46pm insulin isophane, human 70 unt/ml / insulin, regular, human 30 unt/ml injectable suspension (20 sources) Insulin Start: 05-02-2022 End: 05-17-2022 Insulin Nph And Regular Stephie n (Humulin 70/30 U-100 Insulin) 100 unit/mL (70-30) Suspension Discontinued 60 UNIT SUBCUT Twice daily May 01, 2022 11:00pm May 17, 2022 3:07pm Start: 11-19-2016 End: 02-22-2022 inject 10 [IU] by subcutaneous injection once daily Insulin Nph And Regular Human Discontinued 10 UNIT SUBCUT Daily November 18, 2016 11:00pm February 22, 2022 7:29pm Subq per instructions Start: 11-19-2016 inject 60 [IU] by camarena bcutaneous injection twice daily Insulin Nph And Regular Human Active 60 UNIT SUBCUT Twice daily November 19, 2016 11:30am Subq per instructions 24 hr isosorbide mononitrate 60 mg extended release oral tablet (20 sources) Nitrate Vasodilator Start: 05-02-2022 End: 10-31-2022 take 60 mg by mouth once daily Isosorbide Mononitrate Discontinued 60 MG PO Daily May 01, 2022 11:00pm October 31, 2022 1:40pm Start: 11-19-2016 End: 02-26-2022 take 1 tablet by mouth once daily in the morning Isosorbide Mononitrate Discontinued 60 MG PO Every morning November 18, 2016 11:00pm February 26, 2022 12:06pm 1 tablet PO daily losartan potassium 25 mg oral tablet (20 sources) Angiotensin 2 Receptor Madhu Start: 11-20-2021 End: 02-26-2022 take 25 mg by mouth once daily Losartan Discontinued 25 MG PO Daily November 19, 2021 11:00pm February 26, 2022 12:06pm midodrine hydrochloride 5 mg oral tablet (20 sources) alpha-Adrenergic Agonist Start: 12-06-2022 End: 12-07-2022 take 1 dose by mouth once daily at bedtime Midodrine Discontinued 5 MG PO Three times daily December 05, 2022 11:00pm December 07, 2022 5:37am do not give last dose of day after 6PM or within 4 hrs of bedtime Start: 10-29-2022 End: 12-06-2022 take 5 mg by mouth three times daily Midodrine Active 5 MG PO Three times daily December 06, 2022 11:00pm nystatin 750963 unt/ml oral suspension (4 sources) Polyene Antifungal Start: 01-02-2023 End: 03-05-2023 take 894170 [IU] by mouth four times daily Nystatin Discontinued [id number] UNIT PO Four times daily 140 7 January 02, 2023 12:00am March 05, 2023 5:48pm omeprazole 40 mg delayed release oral capsule (20 sources) Proton Pump Inhibitor Start: 09-07-2019 End: 05-02-2022 take 40 mg by mouth once daily Omeprazole Discontinued 40 MG PO Daily September 06, 2019 11:00pm May 02, 2022 11:56am predniSONE 10 mg oral tablet (9 sources) Start: 12-06-2022 End: 12-29-2022 take 10 mg by mouth once daily Prednisone Discontinued 10 MG PO Daily December 05, 2022 11:00pm December 29, 2022 10:19pm 10 mg x3 days Start: 12-06-2022 Prednisone Act shea MG TABLET December 06, 2022 12:00am RETACRIT INJECTION (6 sources) Start: 02-08-2022 RETACRIT INJECTION Jan, 1000 mL spironolactone 25 mg oral tablet (20 sources) Aldosterone Antagonist Start: 02-24-2022 End: 05-02-2022 take 25 mg by mouth once daily Spironolactone Discontinued 25 MG PO Daily February 24, 2022 12:00am May 02, 2022 11:56am Start: 11-19-2016 End: 09-07-2019 Spironolactone Discontinued TABLET November 18, 2016 11:00pm September 07, 2019 9:44am temazepam 15 mg oral capsule (20 sources) Benzodiazepine Start: 11-19-2016 End: 09-07-2019 take 1 capsule by mouth once daily at bedtime Temazepam Discontinued November 18, 2016 11:00pm September 07, 2019 9:45am 1 capsule PO daily at bedtime. tiZANidine 4 mg oral tablet (20 sources) Central alpha-2 Adrenergic Agonist Start: 05-16-2020 End: 06-26-2021 take 4 mg by mouth three times daily Tizanidine Discontinued 4 MG PO Three times daily May 15, 2020 11:00pm June 26, 2021 9:52am Triamcinolone (20 sources) Corticosteroid Start: 06-29-2018 Kenalog -40 mg June, 40 mg Start: 05-15-2017 Kenalog -40 mg May, Start: 11-28-2016 Kenalog -40 mg Nov, 40 mg 7 actuat umeclidinium 0.0625 mg/actuat / vilanterol 0.025 mg/actuat dry powder inhaler (20 sources) Anticholinergic, beta2-Adrenergic Agonist Start: 11-25-2019 End: 12-06-2022 Umeclidinium-Vilanterol (Anoro Ellipta) 62.5-25 mcg/actuation blister with device Discontinued 1 INH INHALATION Daily November 24, 2019 11:00pm December 06, 2022 9:45pm valsartan 160 mg oral tablet (20 sources) Angiotensin 2 Receptor Mdahu Start: 05-02-2022 take 160 mg by mouth twice daily Valsartan Active 160 MG PO Twice daily May 02, 2022 12:50pm Start: 02-24-2022 End: 10-31-2022 take 160 mg by mouth once daily Valsartan Discontinued 160 MG PO Daily May 02, 2022 11:50am October 31, 2022 2:40pm take 1 tablet by darcy th every twelve hours Valsartan 40 MG 1 tablet Orally Twice a day Active Problems Active Problems Problem Classification Problem Date Documented Date Episodic/Chronic Acute and unspecified renal failure (20 sources) Injury of kidney; Translations: [Acute kidney failure, unspecified] Onset: 2 02-22-2022 Episodic Acute myocardial infarction (1 source) Non-ST elevation (NSTEMI) myocardial infarction; Translations: [NON-ST ELEVATION MYOCARDIAL INFARCT] Onset: 2 Chronic Anxiety disorders (1 source) Anxiety disorder, unspecified; Translations: [ANXIETY DISORDER UNSPECIFIED] Onset: 2 Chronic Cardiac dysrhythmias (20 sources) Nonsustained ventricular tachycardia ; Translations: [Nonsustained ventricular tachycardia] Onset: 3 10-30-2022 Chronic Cardiac dysrhythmias (11 sources) Bradycardia; Translations: [Bradycardia, unspecified] Onset: 3 12-30-2022 Episodic Chronic kidney disease (20 sources) Chronic kidney disease stage 4; Translations: [Chronic kidney disease, stage 4 (severe)] Onset: 1 Resolved: 2 Chronic Chronic obstructive pulmonary disease and bronchiectasis (20 sources) Chronic obstructive lung disease; Translations: [Chronic obstructive pulmonary disease, unspecified] Onset: 2 11-16-2021 Chronic Chronic ulcer of skin (1 source) Pressure ulcer of right buttock, stage 2; Translations: [PRESSURE ULCER RT BUTTOCK STAGE 2] Onset: 2 Chronic Complication of device; implant or graft (4 sources) Arteriovenous fistula stenosis; Translations: [Stenosis of other vascular prosthetic devices, implants and grafts, initial encounter] Onset: 3 Chronic Conduction disorders (6 sources) Presence of automatic (implantable) cardiac defibrillator; Translations: [Presence of cardiac pacemaker] Onset: 4 Chronic Congestive heart failure; nonhypertensive (20 sources) Congestive heart failure; Translations: [Heart failure, unspecified] Onset: 1 Resolved: 2 Chronic Coronary atherosclerosis and other heart disease (20 sources) Coronary arteriosclerosis; Translations: [Atherosclerotic heart disease of [place] coronary artery without angina pectoris] Onset: 2 11-16-2021 Chronic Deficiency and other anemia (15 sources) Anemia of chronic renal failure; Translations: [Anemia in chronic kidney disease] Chronic Deficiency and other anemia (7 sources) Anemia in chronic kidney disease; Translations: [ANEMIA IN CHRONIC KIDNEY DISEASE] Onset: 1 Resolved: 2 Chronic Deficiency and other anemia (19 sources) Anemia; Translations: [Anemia, unspecified] 11-16-2021 Episodic Diabetes mellitus with complications (20 sources) Disorder of kidney due to diabetes mellitus; Translations: [Type 2 diabetes mellitus with diabetic nephropathy] Onset: 1 Resolved: 2 Chronic Diabetes mellitus without complication (20 sources) Diabetes mellitus; Translations: [Type 2 diabetes mellitus without complications] Onset: 3 11-16-2021 Chronic Diseases of white blood cells (9 sources) Leukocytosis; Translations: [Elevated white blood cell count, unspecified] Onset: 3 12-09-2022 Chronic Disorders of lipid metabolism (20 sources) Mixed hyperlipidemia; Translations: [Mixed hyperlipidemia] Onset: 1 Resolved: 2 Chronic Epilepsy; convulsions (4 sources) Neurological finding; Translations: [Unspecified convulsions] 03-05-2023 Episodic Esophageal disorders (1 source) Gastro-esophageal reflux disease without esophagitis; Translations: [GERD WITHOUT ESOPHAGITIS] Onset: 2 Chronic Essential hypertension (20 sources) Essential hypertension; Translations: [Essential (primary) hypertension] Onset: 3 11-16-2021 Chronic Fever of unknown origin (13 sources) Fever; Translations: [Fever, unspecified] Onset: 3 12-30-2022 Episodic Fluid and electrolyte disorders (20 sources) Hyponatremia; Translations: [Hypo-osmolality and hyponatremia] Onset: 2 11-16-2021 Episodic Gastrointestinal hemorrhage (14 sources) Gastrointestinal hemorrhage; Translations: [Hemorrhage of anus and rectum] 05-17-2022 Episodic Heart valve disorders (2 sources) Nonrheumatic aortic (valve) stenosis; Translations: [Nonrheumatic aortic (valve) stenosis] Onset: 3 Chronic Hypertension with complications and secondary hypertension (20 sources) Chronic kidney disease due to hypertension; Translations: [Hypertensive chronic kidney disease with stage 1 through stage 4 chronic kidney disease, or unspecified chronic kidney disease] Onset: 1 Resolved: 2 Chronic Malaise and fatigue (20 sources) Asthenia; Translations: [Other malaise] Onset: 3 11-20-2021 Episodic Mood disorders (16 sources) Major depressive disorder, single episode, unspecified; Translations: [Depression] Onset: 2 Chronic Osteoarthritis (20 sources) Degenerative joint disease of shoulder region; Translations: [Primary osteoarthritis, left shoulder] Onset: 2 10-30-2022 Chronic Other circulatory disease (14 sources) Acquired arteriovenous fistula aneurysm; Translations: [Arteriovenous fistula, acquired] Chronic Other circulatory disease (2 sources) Arteriovenous fistula, acquired Chronic Other circulatory disease (10 sources) Arteriovenous fistula; Translations: [Arteriovenous fistula, acquired] 10-29-2022 Chronic Other circulatory disease (2 sources) Orthostatic hypotension; Translations: [Orthostatic hypotension] Onset: 3 Episodic Other circulatory disease (2 sources) Low blood pressure; Translations: [Hypotension, unspecified] 03-05-2023 Episodic Other circulatory disease (3 sources) Hypotension, unspecified; Translations: [Hypotension, unspecified] Onset: 4 03-05-2023 Episodic Other diseases of kidney and ureters (15 sources) Hyperparathyroidism due to renal insufficiency; Translations: [Secondary hyperparathyroidism of renal origin] Chronic Other diseases of kidney and ureters (20 sources) Secondary hyperparathyroidism of renal origin; Translations: [Secondary hyperparathyroidism (of renal origin)] Onset: 1 Resolved: 2 Chronic Other diseases of kidney and ureters (8 sources) Secondary hyperparathyroidism; Translations: [Secondary hyperparathyroidism of renal origin] 12-07-2022 Chronic Other hematologic conditions (16 sources) Raised cardiac enzyme or marker; Translations: [Other specified abnormalities of plasma proteins] 02-22-2022 Episodic Other hematologic conditions (6 sources) Other specified abnormalities of plasma proteins; Translations: [Other abnormal blood chemistry] 02-22-2022 Episodic Other injuries and conditions due to external causes (10 sources) Minor head injury; Translations: [Unspecified injury of head, initial encounter] 10-30-2022 Episodic Other injuries and conditions due to external causes (16 sources) Unspecified injury of head, initial encounter; Translations: [Head injury, unspecified] 10-29-2022 Episodic Other injuries and conditions due to external causes (9 sources) Injury of head; Translations: [Unspecified injury of head, initial encounter] 12-06-2022 Episodic Other injuries and conditions due to external causes (1 source) Heat syncope, initial encounter; Translations: [Heat syncope, initial encounter] Onset: 4 Episodic Other nervous system disorders (15 sources) Chronic pain; Translations: [Other chronic pain] Chronic Other nervous system disorders (20 sources) Acute postoperative pain; Translations: [Other acute postprocedural pain] 05-18-2020 Episodic Other non-traumatic joint disorders (15 sources) Rotator cuff tear arthropathy; Translations: [Other specific arthropathies, not elsewhere classified, left shoulder] Chronic Other non-traumatic joint disorders (18 sources) Shoulder pain; Translations: [Pain in right shoulder] 11-16-2021 Episodic Other non-traumatic joint disorders (4 sources) Multiple joint pain; Translations: [Pain in unspecified joint] 12-30-2022 Episodic Other non-traumatic joint disorders (5 sources) Pain in unspecified joint; Translations: [Pain in joint, multiple sites] Onset: 3 01-02-2023 Episodic Other nutritional; endocrine; and metabolic disorders (15 sources) Body mass index 30+ - obesity; Translations: [Body mass index (BMI) 30.0-30.9, adult] Chronic Other nutritional; endocrine; and metabolic disorders (4 sources) Hypomagnesemia; Translations: [Disorders of magnesium metabolism] Onset: Chronic Other nutritional; endocrine; and metabolic disorders (1 source) Hypomagnesemia; Translations: [Hypomagnesemia] 03-07-2023 Chronic Other skin disorders (4 sources) Tongue swelling; Translations: [Localized swelling, mass and lump, head] 12-30-2022 Episodic Other skin disorders (5 sources) Localized swelling, mass and lump, head; Translations: [Swelling, mass, or lump in head and neck] Onset: 3 01-02-2023 Episodic [place]-; endo-; and myocarditis; cardiomyopathy (except that caused by tuberculosis or sexually transmitted disease) (20 sources) Cardiomyopathy; Translations: [Cardiomyopathy, unspecified] Onset: 3 11-20-2021 Chronic Pleurisy; pneumothorax; pulmonary collapse (20 sources) Pleural effusion; Translations: [Pleural effusion, not elsewhere classified] Onset: 2 11-16-2021 Episodic Residual codes; unclassified (19 sources) Sleep apnea; Translations: [Sleep apnea, unspecified] 11-16-2021 Chronic Residual codes; unclassified (3 sources) Sleep apnea, unspecified; Translations: [Unspecified sleep apnea] 11-20-2021 Chronic Residual codes; unclassified (1 source) Family history of malignant neoplasm of trachea, bronchus and lung; Translations: [FAM HX MALIG NEOPLSM TRACH BRON LNG] Onset: 3 Episodic Residual codes; unclassified (1 source) Family history of malignant neoplasm of digestive organs; Translations: [PEDRO MARI NEOPLASM DIGESTIV ORGN] Onset: 3 Episodic Residual codes; unclassified (1 source) Family history of malignant neoplasm of other organs or systems; Translations: [PEDRO MARI NEOPLASM OTH ORGN/SYS] Onset: 3 Episodic Residual codes; unclassified (2 sources) Altered mental status, unspecified; Translations: [Altered mental status, unspecified] Onset: 3 Episodic Residual codes; unclassified (2 sources) Disorientation, unspecified; Translations: [Disorientation, unspecified] Onset: 3 Episodic Respiratory failure; insufficiency; arrest (adult) (10 sources) Dependence on supplemental oxygen; Translations: [Chronic hypoxemic respiratory failure] Onset: 2 12-09-2022 Chronic Respiratory failure; insufficiency; arrest (adult) (20 sources) Acute hypoxemic respiratory failure; Translations: [Acute respiratory failure with hypoxia] Onset: 2 11-16-2021 Episodic Spondylosis; intervertebral disc disorders; other back problems (16 sources) Degeneration of intervertebral disc; Translations: [Other intervertebral disc degeneration, lumbar region] Onset: 2 Chronic Unclassified (1 source) CONTACT W/AND (SUSP) EXPOS COVID-19; Translations: [CONTACT W/AND (SUSP) EXPOS COVID-19] Onset: 2 Unclassified (2 sources) Ventricular tachycardia, unspecified; Translations: [Ventricular tachycardia, unspecified] Onset: 3 Unclassified (2 sources) Other ventricular tachycardia; Translations: [Other ventricular tachycardia] Onset: 3 Unclassified (1 source) Unspecified convulsions; Translations: [Unspecified convulsions] Onset: 4 Unclassified (1 source) Other ventricular tachycardia; Translations: [Other ventricular tachycardia] Onset: 3 Unclassified (1 source) Ventricular tachycardia, unspecified; Translations: [Ventricular tachycardia, unspecified] Onset: 3 Unclassified (1 source) Contusion of other part of head, initial encounter; Translations: [Contusion of other part of head, initial encounter] Onset: 3 Unclassified (1 source) Hemorrhage of anus and rectum; Translations: [Hemorrhage of anus and rectum] Onset: 3 Unclassified (1 source) Other specified complication of vascular prosthetic devices, implants and grafts, initial encounter; Translations: [Other specified complication of vascular prosthetic devices, implants and grafts, initial encounter] Onset: 3 Urinary tract infections (20 sources) Urinary tract infectious disease; Translations: [Urinary tract infection, site not specified] 02-22-2022 Episodic Past or Other Problems Problem Classification Problem Date Documented Da te Episodic/Chronic Coronary atherosclerosis and other heart disease (1 source) Presence of coronary angioplasty implant and graft; Translations: [PRESENCE COR ANGPLSTY IMPLANT AND GRAFT] Onset: 11-22-2021 Episodic Deficiency and other anemia (20 sources) Anemia, unspecified; Translations: [Anemia, unspecified] Onset: 05-17-2022 11-20-2021 Episodic E Codes: Fall (20 sources) Unspecified fall, initial encounter; Translations: [Fall in home] Onset: 11-22-2021 10-30-2022 Episodic E Codes: Place of occurrence (1 source) Unspecified place in unspecified non-institutional (private) residence as the place of occurrence of the external cause; Translations: [Unspecified place in unspecified non-institutional (private) residence as the place of occurrence of the external cause] Onset: 10-30-2022 Episodic E Codes: Unspecified (1 source) Nosocomial condition; Translations: [NOSOCOMIAL CONDITION] Onset: 11-22-2021 Episodic Fracture of upper limb (1 source) Displaced fracture of acromial process, right shoulder, initial encounter for closed fracture; Translations: [DSPL FX ACRML RT SHLDR INIT MIRNA FX] Onset: 11-22-2021 Episodic Genitourinary symptoms and ill-defined conditions (9 sources) Hematuria, unspecified; Translations: [HEMATURIA UNSPECIFIED] Onset: 01-02-2021 Resolved: 07-25-2021 Episodic Other aftercare (1 source) retirement (current) use of aspirin; Translations: [SKILLED NURSING CURRENT USE OF ASPIRIN] Onset: 11-22-2021 Episodic Other aftercare (4 sources) 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; Translations: [RACE 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 PROFESSOR CURRENT USE OF INSULIN] Onset: 11-22-2021 Episodic Other aftercare (1 source) Other terminal make up operator (current) drug therapy; Translations: [OTH SKILLED NURSING CURRENT DRUG THERAPY] Onset: 11-22-2021 Episodic Other lower respiratory disease (4 sources) Shortness of breath; Translations: [SHORTNESS OF BREATH] Onset: 01-14-2022 Episodic Other lower respiratory disease (1 source) Personal history of pneumonia (recurrent); Translations: [PERSONAL HX OF PNEUMONIA RECURRENT] Onset: 11-19-2021 Episodic Other non-epithelial cancer of skin (1 source) Personal history of other malignant neoplasm of skin; Translations: [PERSONAL HX OTH MALIG NEOPLASM SKIN] Onset: 11-22-2021 Episodic Other non-traumatic joint disorders (20 sources) Pain in right shoulder; Translations: [Pain in joint, shoulder region] Onset: 10-30-2022 11-20-2021 Episodic Other non-traumatic joint disorders (18 sources) Pain in left shoulder; Translations: [Left shoulder pain] Onset: 10-30-2022 10-30-2022 Episodic Other screening for suspected conditions (not mental disorders or infectious disease) (20 sources) Encounter for screening mammogram for malignant neoplasm of breast; Translations: [Electrocardiogram abnormal] Onset: 05-31-2022 Episodic Pneumonia (except that caused by tuberculosis or sexually transmitted disease) (3 sources) Pneumonia, unspecified organism; Translations: [PNEUMONIA UNSPECIFIED ORGANISM] Onset: 11-04-2021 Episodic Residual codes; unclassified (5 sources) Edema, unspecified; Translations: [EDEMA UNSPECIFIED] Onset: 01-02-2021 Resolved: 07-25-2021 Episodic Spondylosis; intervertebral disc disorders; other back problems (1 source) Spinal stenosis, cervical region; Translations: [SPINAL STENOSIS CERVICAL REGION] Onset: 10-29-2021 Episodic Syncope (20 sources) Syncope; Translations: [Syncope and collapse] Onset: 12-08-2022 12-06-2022 Episodic Unclassified (1 source) Ventricular tachycardia, unspecified; Translations: [Ventricular tachycardia, unspecified] Onset: 01-29-2023 Unclassified (1 source) Other ventricular tachycardia; Translations: [Other ventricular tachycardia] Onset: 01-29-2023 Results Test Name Value Interpretation Reference Range Facility Nursing Assessment - Woundon 03-26-2023 Nursing Assessment - Wound [id number]#3.00TI [facility] Nursing Note - Woundon 03-26 Nursing Note - Wound [id number]#1.00TI [facility] Physician Orderon 03-26-2023 Physician Order [id number]#1.00TI [facility] Progress Note - Woundon 03-13 Progress Note - Wound [id number]#1.00TI [facility] Multi-Wound Charton 03-25-19 Multi-Wound Chart [id number]#1.00TI [facility] Consent for Procedure/Surger yon 03-18-2023 Consent for Procedure/Surgery [id number]#1.00TI [facility] Consent for Procedure/Surgery [id number]#1.00TI [facility] Consent for Treatmenton Consent for Treatment [id number]#1.00TIF [facility] [facility] Multi-Wound Charton 03-18-19 24 Multi-Wound Chart [id number] 2019 [id number]#1.00TI FF [facility] Nursing Assessment - Woundon 03-18-2023 Nursing Assessment - Wound [id number]#1.00TI FF [facility] Nursing Note - Woundon 03-18 Nursing Note - Wound [id number]#1.00TI FF [facility] Physician Orderon 03-18-2023 Physician Order [id number]#1.00TI [facility] Procedure - Woundon 03-18-19 Procedure - Wound [id number]#1.00TI FF [facility] Progress Note - Woundon -0 Progress Note - Wound [id number]#1.00TI [facility] Basic Metabolic Panelon 02-11 Anion gap [Moles/Vol] 10.5 mmol/L Normal 6.0-15.0 [facility] Comment on above: Performed By: #### B SHAWN, MG ####[place] [address] [address] Calcium [Mass/Vol] 9.3 mg/dL Normal 8.6-10.3 [facility] Comment on above: Performed By: #### B SHAWN, MG ####[place] [address] Chloride [Moles/Vol] 99 mmol/L Normal 98-107 [facility] Comment on above: Performed By: #### B SHAWN, MG ####[place] [address] [place] [id number] [facility] CO2 [Moles/Vol] 27.2 mmol/L Normal 21.0-31.0 [facility] Comment on above: Performed By: #### B SHAWN, MG ####[place] [id number] [facility] Creatinine [Mass/Vol] 4.34 mg/dL Significan t change up 0.60-1.20 [facility] Comment on above: Performed By: #### B SHAWN, MG ####[place] [address] [place] [id number] [facility] Creatinine Clr Calc Pharmacy 9.52 [facility] Comment on above: Performed By: #### B SHAWN, MG ####[place] [address] [place] [id number] [place] GFR/1.73 sq M.predicted MDRD (S/P/Bld) [Vol rate/Area] 10.031 mL/min/{1.73_m2} Normal [facility] Comment on above: Performed By: #### B MP, MG ####[place] [address] [place] [id number] [facility] Glucose [Mass/Vol] 175 mg/dL High 70-100 [facility] Comment on above: Result Comment: [facility] Glucose Reference Range is dependent on time and content of last meal. Glucose of more than 200 mg/dL in a nonstressed, ambulatory subject supports the diagnosis of Diabetes Mellitus. ADA recommended reference range Performed By: #### B MP, MG ####[place] [address] [place] [id number] [facility] Potassium [Moles/Vol] 4.7 mmol/L Significan t change down 3.5-5.1 [facility] Comment on above: Performed By: #### B MP, MG ####[place] [address] [facility] Sodium [Moles/Vol] 132 mmol/L Low 136-145 [facility] Comment on above: Performed By: #### B MP, MG ####[place] [address] [facility] Urea nitrogen [Mass/Vol] 39 mg/dL High 7-25 [facility] Comment on above: Performed By: #### B MP, MG ####[place] [id number] [facility] ECG 12 lead ECGon 03-07-2023 ECG 12 lead ECG Normal [facility] Glucose Poct Glucometerson 0 03-07-2023 Glucose [Mass/Vol] 199 mg/dL Normal [facility] Comment on above: Result Comment: [facility] Glucose Reference Range is dependent on time and content of last meal. Glucose of more than 200 mg/dL in a nonstressed, ambulatory subject supports the diagnosis of Diabetes Mellitus.PERFORMED BY:[address] [place], [place] [phone] MEDICAL DIRECTORRAMEZ LARSON M.D. Performed By: #### G LULS ####Point of Care testing, Glucose [Mass/Vol] 130 mg/dL Normal [facility] Comment on above: Result Comment: [place] [facility] Glucose Reference Range is dependent on time and content of last meal. Glucose of more than 200 mg/dL in a nonstressed, ambulatory subject supports the diagnosis of Diabetes Mellitus.PERFORMED BY:[place] [address] [address] [place], [place] [phone] MEDICAL DIRECTORRAMEZ LARSON M.D. Performed By: #### G LULS ####Point of Care testing, Commemt1 Glu2: Cleaned Meter Normal [facility] Comment on above: Result Comment: PERF ORMED BY:[place] [address] [address] [place], [place] [phone] MEDICAL MAJOR LARSON M.D. Performed By: #### G LULS ####Point of Care testing, Glucose [Mass/Vol] 148 mg/dL Normal [facility] Comment on above: Result Comment: [place] [facility] Glucose Reference Range is dependent on time and content of last meal. Glucose of more than 200 mg/dL in a nonstressed, ambulatory subject supports the diagnosis of Diabetes Mellitus. Performed By: #### G LULS ####Point of Care testing, Glucose [Mass/Vol] 191 mg/dL Normal [facility] Comment on above: Result Comment: [place] [facility] Glucose Reference Range is dependent on time and content of last meal. Glucose of more than 200 mg/dL in a nonstressed, ambulatory subject supports the diagnosis of Diabetes Mellitus.PERFORMED BY:[place] [address] [address] [place], [place] [phone] MEDICAL MAJOR LARSON M.D. Performed By: #### G LULS ####Point of Care testing, Magnesiumon 03-07-2023 Magnesium [Mass/Vol] 1.8 mg/dL Low 1.9-2.7 [facility] Comment on above: Result Comment: PERF ORMED BY:[place] [address] [address] [place], [place] [phone] MEDICAL DIRECTORRAMEZ LARSON M.D. Performed By: #### B MP, MG ####[place] [id number] [facility] C-Reactive Proteinon 024 C-Reactive Protein 16.1 mg/dL High 0.0-0.5 [facility] Comment on above: Result Comment: PERF ORMED BY:[place] [address] [address] [place], [place] [phone] MEDICAL DIRECTORRAMEZ LARSON M.D. Performed By: #### H S TROP, CBC, MG, CRP, PHOS ####[place] [address] [facility] Complete Blood Count Auto Di ffon 03-06-2023 Basophils (Bld) [#/Vol] 0.0 10*3/uL Normal 0.0-0.2 [facility] Comment on above: Result Comment: PERF ORMED BY:[address] [place], [place] [phone] MEDICAL DIRECTORRAMEZ LARSON M.D. Performed By: #### H S TROP, CBC, MG, CRP, PHOS ####[place] [phone] [facility] Basophils/100 WBC (Bld) 0.5 % Normal . [facility] Comment on above: Performed By: #### H S TROP, CBC, MG, CRP, PHOS ####[place] [phone] [facility] Eosinophils (Bld) [#/Vol] 0.1 10*3/uL Normal 0.0-0.45 [facility] Comment on above: Performed By: #### H S TROP, CBC, MG, CRP, PHOS ####[place] [id number] [facility] Eosinophils/100 WBC (Bld) 0.7 % Normal . [facility] Comment on above: Performed By: #### H S TROP, CBC, MG, CRP, PHOS ####[address] Erythrocyte distribution width (RBC) [Ratio] 18.1 % High 11.9-15.3 [facility] Comment on above: Performed By: #### H S TROP, CBC, MG, CRP, PHOS ####[address] Hematocrit (Bld) [Volume fraction] 32.4 % Low 34.0-46.4 [facility] Comment on above: Performed By: #### H S TROP, CBC, MG, CRP, PHOS ####[address] Hemoglobin (Bld) [Mass/Vol] 10.0 g/dL Low 11.8-15.4 [facility] Comment on above: Performed By: #### H S TROP, CBC, MG, CRP, PHOS ####[address] Lymphocytes (Bld) [#/Vol] 1.3 10*3/uL Normal 1.00-4.8 [facility] Comment on above: Performed By: #### H S TROP, CBC, MG, CRP, PHOS ####[address] Lymphocytes/100 WBC (Bld) 15.9 % Normal . [facility] Comment on above: Performed By: #### H S TROP, CBC, MG, CRP, PHOS ####[address] MCH (RBC) [Entitic mass] 26.7 pg Normal 24.7-34.3 [facility] Comment on above: Performed By: #### H S TROP, CBC, MG, CRP, PHOS ####[address] MCV (RBC) [Entitic vol] 86.3 fL Normal 80-100 [facility] Comment on above: Performed By: #### H S TROP, CBC, MG, CRP, PHOS ####[address] Mean Corpuscular HGB Conc 31.0 g/dL Low 32.0-35.0 [facility] Comment on above: Performed By: #### H S TROP, CBC, MG, CRP, PHOS ####[address] Monocytes (Bld) [#/Vol] 1.1 10*3/uL High 0.0-0.8 [facility] Comment on above: Performed By: #### H S TROP, CBC, MG, CRP, PHOS ####[address] Monocytes/100 WBC (Bld) 13.2 % Normal . [facility] Comment on above: Performed By: #### H S TROP, CBC, MG, CRP, PHOS ####[address] Neutrophils (Bld) [#/Vol] 5.8 10*3/uL Normal 1.8-7.7 [facility] Comment on above: Performed By: #### H S TROP, CBC, MG, CRP, PHOS ####[address] Neutrophils/100 WBC (Bld) 69.7 % Normal . [facility] Comment on above: Performed By: #### H S TROP, CBC, MG, CRP, PHOS ####[address] NRBC% 0.1 /100{WBC} Normal 0-0.5 [facility] Comment on above: Performed By: #### H S TROP, CBC, MG, CRP, PHOS ####[address] Platelet mean volume (Bld) [Entitic vol] 7.6 fL Normal 6.3-10.7 [facility] Comment on above: Performed By: #### H S TROP, CBC, MG, CRP, PHOS ####[address] [place] [address] [facility] Platelets (Bld) [#/Vol] 371 10*3/uL Normal 150-450 [facility] Comment on above: Performed By: #### H S TROP, CBC, MG, CRP, PHOS ####[place] [address] [place] [address] [facility] RBC (Bld) [#/Vol] 3.75 10*6/uL Normal 3.60-5.00 [facility] Comment on above: Performed By: #### H S TROP, CBC, MG, CRP, PHOS ####[place] [address] [place] [address] [facility] WBC (Bld) [#/Vol] 8.3 10*3/uL Normal 3.8-11.6 [facility] Comment on above: Performed By: #### H S TROP, CBC, MG, CRP, PHOS ####[place] [id number] [facility] ECG 12 lead ECGon 03-06-2023 ECG 12 lead ECG Normal [facility] Glucoseon 03-06-2023 Glucose [Mass/Vol] 223 mg/dL High 70-100 [facility] Comment on above: Order Comment: Comme nt On awakening, before meals, and before bedtime. Result Comment: [facility] Glucose Reference Range is dependent on time and content of last meal. Glucose of more than 200 mg/dL in a nonstressed, ambulatory subject supports the diagnosis of Diabetes Mellitus. ADA recommended reference rangePERFORMED BY:[address] [place], [place] [phone] MEDICAL DIRECTORRAMEZ LARSON M.D. Performed By: #### G MARY ####[place] [id number] [facility] Glucose Poct Glucometerson 0 03-06-2023 Glucose [Mass/Vol] 188 mg/dL Normal [facility] Comment on above: Result Comment: [facility] Glucose Reference Range is dependent on time and content of last meal. Glucose of more than 200 mg/dL in a nonstressed, ambulatory subject supports the diagnosis of Diabetes Mellitus.PERFORMED BY:[place] [address] [address] [place], [place] [phone] MEDICAL MAJOR LARSON M.D. Performed By: #### G LULS ####Point of Care testing, Glucose [Mass/Vol] 131 mg/dL Normal [facility] Comment on above: Result Comment: [facility] Glucose Reference Range is dependent on time and content of last meal. Glucose of more than 200 mg/dL in a nonstressed, ambulatory subject supports the diagnosis of Diabetes Mellitus.PERFORMED BY:[place] [address] [address] [place], [place] [phone] MEDICAL DIRECTORRAMEZ LARSON M.D. Performed By: #### G LULS ####Point of Care testing, Glucose [Mass/Vol] 184 mg/dL Normal [facility] Comment on above: Result Comment: [facility] Glucose Reference Range is dependent on time and content of last meal. Glucose of more than 200 mg/dL in a nonstressed, ambulatory subject supports the diagnosis of Diabetes Mellitus.PERFORMED BY:[address] [place], [place] [phone] MEDICAL MAJOR LARSON M.D. Performed By: #### G LULS ####Point of Care testing, Glucose [Mass/Vol] 132 mg/dL Normal [facility] Comment on above: Result Comment: [facility] Glucose Reference Range is dependent on time and content of last meal. Glucose of more than 200 mg/dL in a nonstressed, ambulatory subject supports the diagnosis of Diabetes Mellitus.PERFORMED BY:[place] [address] [address] [place], [place] [phone] MEDICAL MAJOR LARSON M.D. Performed By: #### G LULS ####Point of Care testing, Lactic Acid Reflexon 03-06-2 024 Lactic Acid Reflex 1.8 mmol/L Normal 0.5-2.2 [facility] Comment on above: Result Comment: PERF ORMED BY:[place] [address] [address] [place], [place] [phone] MEDICAL DIRECTORRAMEZ LARSON M.D. Performed By: #### L ACTIC RFX ####[place] [address] [place] [address] [facility] Magnesiumon 03-06-2023 Magnesium [Mass/Vol] 2.0 mg/dL Normal 1.9-2.7 [facility] Comment on above: Performed By: #### H S TROP, CBC, MG, CRP, PHOS ####[place] [address] [place] [address] [facility] Phosphoruson 03-06-2023 Phosphate [Mass/Vol] 3.2 mg/dL Normal 2.5-4.5 [facility] Comment on above: Performed By: #### H S TROP, CBC, MG, CRP, PHOS ####[place] [id number] [facility] Troponin I High Sensitivityo n 03-06-2023 Troponin I High Sensitivity 30.4 pg/mL High 0.0-15.0 [facility] Comment on above: Result Comment: PERF ORMED BY:[place] [address] [address] [place], [place] [phone] MEDICAL DIRECTORRAMEZ LARSON M.D. Performed By: #### H S TROP, CBC, MG, CRP, PHOS ####[address] [address] [facility] Alanine aminotransferase [En zymatic activity/volume] in Serum or PlasmaOrdered By: Constantine Perdomo on 03-05-2023 ALT [Catalytic activity/Vol] 18 U/L 7-52 [facility] Albumin [Mass/volume] in Ser um or Plasma by Bromocresol green (BCG) dye binding methoOrdered By: Constantine Perdomo on 03-05-2023 Albumin BCG dye [Mass/Vol] 3.5 g/dL 3.5-5.7 [facility] Alkaline phosphatase [Enzyma tic activity/volume] in Serum or PlasmaOrdered By: Constantine Perdomo on 03-05-2023 ALP [Catalytic activity/Vol] 161 U/L 34-104 [facility] Aspartate aminotransferase [ Enzymatic activity/volume] in Serum or PlasmaOrdered By: Constantine Perdomo on 03-05-2023 AST [Catalytic activity/Vol] 23 U/L 13-39 [facility] B-Type Natriuretic Peptideon 03-05-2023 Natriuretic peptide B (Bld) [Mass/Vol] 872.0 pg/mL High 5-100 [facility] Comment on above: Result Comment: PERF ORMED BY:[address] [place], [place] [phone] MEDICAL DIRECTORRAMEZ LARSON M.D. Performed By: #### C MP, CUBLD, LACTIC, BNP, HS TROP, CBC ####[place] [address] [place] [address] [facility] Basophils Auto (Bld) [#/Vol] Ordered By: Constantine Perdomo on 03-05-2023 Basophils (Bld) [#/Vol] 0.0 10*3/uL 0.0-0.2 [facility] Basophils/100 WBC Auto (Bld) Ordered By: Constantine Perdomo on 03-05-2023 Basophils/100 WBC (Bld) 0.4 % . [facility] Bilirubin.total [Mass/volume ] in Serum or PlasmaOrdered By: Constantine Perdomo on 03-05-2023 Bilirubin [Mass/Vol] 0.6 mg/dL 0.3-1.0 [facility] Blood Cultureon 03-05-2023 Bacteria identified Cx Nom (Bld) NO GROWTH 5 DAYS PERFORMED BY: [facility] [address] [place] [address] PATHOLOGIST BARREL STAVE INSPECTOR RAMEZ LARSON M.D. [facility] Comment on above: Performed By: #### C MP, CUBLD, LACTIC, BNP, HS TROP, CBC ####[address] [address] [facility] Bacteria identified Cx Nom (Bld) NO GROWTH 5 DAYS PERFORMED BY: [facility] [address] [place] [address] PATHOLOGIST BARREL STAVE INSPECTOR RAMEZ LARSON M.D. [facility] Comment on above: Performed By: #### C MP, CUBLD, LACTIC, BNP, HS TROP, CBC ####[address] head/brain wo conon 03-05 CT head/brain wo con Normal [facility] Calcium [Mass/volume] in Ser um or PlasmaOrdered By: Constantine Perdomo on 03-05-2023 Calcium [Mass/Vol] 10.1 mg/dL 8.6-10.3 [facility] Carbon dioxide, total [Moles /volume] in Serum or PlasmaOrdered By: Constantine Perdomo on 03-05-2023 CO2 [Moles/Vol] 26.7 mmol/L 21.0-31.0 [facility] Chloride [Moles/volume] in S steffanie or PlasmaOrdered By: Constantine Perdomo on 03-05-2023 Chloride [Moles/Vol] 92 mmol/L 98-107 [facility] Complete Blood Count Auto Di ffon 03-05-2023 Basophils (Bld) [#/Vol] 0.0 10*3/uL Normal 0.0-0.2 [facility] Comment on above: Result Comment: PERF ORMED BY:[address] [place], [place] [phone] MEDICAL DIRECTORRAMEZ LARSON M.D. Performed By: #### C MP, CUBLD, LACTIC, BNP, HS TROP, CBC ####[address] Basophils/100 WBC (Bld) 0.4 % Normal . [facility] Comment on above: Performed By: #### C MP, CUBLD, LACTIC, BNP, HS TROP, CBC ####[address] Eosinophils (Bld) [#/Vol] 0.0 10*3/uL Normal 0.0-0.45 [facility] Comment on above: Performed By: #### C MP, CUBLD, LACTIC, BNP, HS TROP, CBC ####[address] Eosinophils/100 WBC (Bld) 0.0 % Normal . [facility] Comment on above: Performed By: #### C MP, CUBLD, LACTIC, BNP, HS TROP, CBC ####[address] Erythrocyte distribution width (RBC) [Ratio] 18.8 % High 11.9-15.3 [facility] Comment on above: Performed By: #### C MP, CUBLD, LACTIC, BNP, HS TROP, CBC ####[address] Hematocrit (Bld) [Volume fraction] 33.8 % Low 34.0-46.4 [facility] Comment on above: Performed By: #### C MP, CUBLD, LACTIC, BNP, HS TROP, CBC ####[address] Hemoglobin (Bld) [Mass/Vol] 10.8 g/dL Low 11.8-15.4 [facility] Comment on above: Performed By: #### C MP, CUBLD, LACTIC, BNP, HS TROP, CBC ####[address] Lymphocytes (Bld) [#/Vol] 0.7 10*3/uL Low 1.00-4.8 [facility] Comment on above: Performed By: #### C MP, CUBLD, LACTIC, BNP, HS TROP, CBC ####[address] Lymphocytes/100 WBC (Bld) 9.1 % Normal . [facility] Comment on above: Performed By: #### C MP, CUBLD, LACTIC, BNP, HS TROP, CBC ####[address] MCH (RBC) [Entitic mass] 27.2 pg Normal 24.7-34.3 [facility] Comment on above: Performed By: #### C MP, CUBLD, LACTIC, BNP, HS TROP, CBC ####[address] [place] [address] [facility] MCV (RBC) [Entitic vol] 85.0 fL Normal 80-100 [facility] Comment on above: Performed By: #### C MP, CUBLD, LACTIC, BNP, HS TROP, CBC ####[place] [address] [facility] Mean Corpuscular HGB Conc 32.0 g/dL Normal 32.0-35.0 [facility] Comment on above: Performed By: #### C MP, CUBLD, LACTIC, BNP, HS TROP, CBC ####[place] [address] [facility] Monocytes (Bld) [#/Vol] 0.8 10*3/uL Normal 0.0-0.8 [facility] Comment on above: Performed By: #### C MP, CUBLD, LACTIC, BNP, HS TROP, CBC ####[address] Monocytes/100 WBC (Bld) 24.78 % High 0.00-20.00 [facility] Comment on above: Result Comment: For adults in ED, MDW > 20.0 may be associated with a higher risk of sepsis during the first 12 hrs of hospital admission Performed By: #### C MP, CUBLD, LACTIC, BNP, HS TROP, CBC ####[place] [address] [facility] Monocytes/100 WBC (Bld) 9.2 % Normal . [facility] Comment on above: Performed By: #### C MP, CUBLD, LACTIC, BNP, HS TROP, CBC ####[place] [address] [facility] Neutrophils (Bld) [#/Vol] 6.6 10*3/uL Normal 1.8-7.7 [facility] Comment on above: Performed By: #### C MP, CUBLD, LACTIC, BNP, HS TROP, CBC ####[place] [address] [facility] Neutrophils/100 WBC (Bld) 81.3 % Normal . [facility] Comment on above: Performed By: #### C MP, CUBLD, LACTIC, BNP, HS TROP, CBC ####[address] NRBC% 0.0 /100{WBC} Normal 0-0.5 [facility] Comment on above: Performed By: #### C MP, CUBLD, LACTIC, BNP, HS TROP, CBC ####[address] Platelet mean volume (Bld) [Entitic vol] 7.3 fL Normal 6.3-10.7 [facility] Comment on above: Performed By: #### C MP, CUBLD, LACTIC, BNP, HS TROP, CBC ####[address] Platelets (Bld) [#/Vol] 418 10*3/uL Normal 150-450 [facility] Comment on above: Performed By: #### C MP, CUBLD, LACTIC, BNP, HS TROP, CBC ####[address] RBC (Bld) [#/Vol] 3.98 10*6/uL Normal 3.60-5.00 [facility] Comment on above: Performed By: #### C MP, CUBLD, LACTIC, BNP, HS TROP, CBC ####[address] WBC (Bld) [#/Vol] 8.1 10*3/uL Normal 3.8-11.6 [facility] Comment on above: Performed By: #### C MP, CUBLD, LACTIC, BNP, HS TROP, CBC ####[address] Comprehensive Metabolic Pane eliseo 03-05-2023 Albumin [Mass/Vol] 3.5 g/dL Normal 3.5-5.7 [facility] Comment on above: Performed By: #### C MP, CUBLD, LACTIC, BNP, HS TROP, CBC ####[address] [address] [facility] Albumin/Globulin [Mass ratio] 0.9 {ratio} Normal [facility] Comment on above: Performed By: #### C MP, CUBLD, LACTIC, BNP, HS TROP, CBC ####[address] [address] [facility] ALP [Catalytic activity/Vol] 161 U/L High 34-104 [facility] Comment on above: Performed By: #### C MP, CUBLD, LACTIC, BNP, HS TROP, CBC ####[place] [address] [facility] ALT [Catalytic activity/Vol] 18 U/L Normal 7-52 [facility] Comment on above: Performed By: #### C MP, CUBLD, LACTIC, BNP, HS TROP, CBC ####[place] [address] [facility] Anion gap [Moles/Vol] 17.4 mmol/L High 6.0-15.0 [facility] Comment on above: Performed By: #### C MP, CUBLD, LACTIC, BNP, HS TROP, CBC ####[place] [address] [facility] AST [Catalytic activity/Vol] 23 U/L Normal 13-39 [facility] Comment on above: Performed By: #### C MP, CUBLD, LACTIC, BNP, HS TROP, CBC ####[place] [address] [facility] Bilirubin [Mass/Vol] 0.6 mg/dL Normal 0.3-1.0 [facility] Comment on above: Performed By: #### C MP, CUBLD, LACTIC, BNP, HS TROP, CBC ####[place] [id number] [facility] Calcium [Mass/Vol] 10.1 mg/dL Normal 8.6-10.3 [facility] Comment on above: Performed By: #### C MP, CUBLD, LACTIC, BNP, HS TROP, CBC ####[place] [id number] [facility] Chloride [Moles/Vol] 92 mmol/L Low 98-107 [facility] Comment on above: Performed By: #### C MP, CUBLD, LACTIC, BNP, HS TROP, CBC ####[address] [address] [facility] CO2 [Moles/Vol] 26.7 mmol/L Normal 21.0-31.0 [facility] Comment on above: Performed By: #### C MP, CUBLD, LACTIC, BNP, HS TROP, CBC ####[address] [address] [facility] Creatinine [Mass/Vol] 2.51 mg/dL High 0.60-1.20 [facility] Comment on above: Performed By: #### C MP, CUBLD, LACTIC, BNP, HS TROP, CBC ####[place] [id number] [facility] Creatinine Clr Calc Pharmacy 16.47 [facility] Comment on above: Result Comment: PERF ORMED BY:[address] [place], [place] [phone] MEDICAL DIRECTORRAMEZ LARSON M.D. Performed By: #### C MP, CUBLD, LACTIC, BNP, HS TROP, CBC ####[place] [id number] [facility] GFR/1.73 sq M.predicted MDRD (S/P/Bld) [Vol rate/Area] 19.351 mL/min/{1.73_m2} [facility] Comment on above: Performed By: #### C MP, CUBLD, LACTIC, BNP, HS TROP, CBC ####[address] [address] [facility] Globulin (S) [Mass/Vol] 3.8 g/dL Normal [facility] Comment on above: Performed By: #### C MP, CUBLD, LACTIC, BNP, HS TROP, CBC ####[address] [address] [facility] Glucose [Mass/Vol] 212 mg/dL High 70-100 [facility] Comment on above: Result Comment: [place] Glucose Reference Range is dependent on time and content of last meal. Glucose of more than 200 mg/dL in a nonstressed, ambulatory subject supports the diagnosis of Diabetes Mellitus. ADA recommended reference range Performed By: #### C MP, CUBLD, LACTIC, BNP, HS TROP, CBC ####[facility] Potassium [Moles/Vol] 3.1 mmol/L Low 3.5-5.1 [facility] Comment on above: Performed By: #### C MP, CUBLD, LACTIC, BNP, HS TROP, CBC ####[place] [address]661 [address] Protein [Mass/Vol] 7.3 g/dL Normal 6.4-8.9 [facility] Comment on above: Performed By: #### C MP, CUBLD, LACTIC, BNP, HS TROP, CBC ####[place] [address]661 [address] Sodium [Moles/Vol] 133 mmol/L Low 136-145 [facility] Comment on above: Performed By: #### C MP, CUBLD, LACTIC, BNP, HS TROP, CBC ####[address] Urea nitrogen [Mass/Vol] 15 mg/dL Normal 7-25 [facility] Comment on above: Performed By: #### C MP, CUBLD, LACTIC, BNP, HS TROP, CBC ####[place] [address]661 [address] Consent for Procedure/Surger yon 03-05-2023 Consent for Procedure/Surgery [id number]#1.00TI FF Normal [facility] Creatinine [Mass/volume] in Serum or PlasmaOrdered By: Constantine Perdomo on 03-05-2023 Creatinine [Mass/Vol] 2.51 mg/dL 0.60-1.20 [facility] ECG 12 lead ECGon 03-05-2023 ECG 12 lead ECG Normal [facility] Eosinophils Auto (Bld) [#/Vo l]Ordered By: Constantine Perdomo on 03-05-2023 Eosinophils (Bld) [#/Vol] 0.0 10*3/uL 0.0-0.45 [facility] Eosinophils/100 WBC Auto (Bl d)Ordered By: Constantine Perdomo on 03-05-2023 Eosinophils/100 WBC (Bld) 0.0 % . [facility] Erythrocyte distribution wid th Auto (RBC) [Ratio]Ordered By: Constantine Perdomo on 03-05-2023 Erythrocyte distribution width (RBC) [Ratio] 18.8 % 11.9-15.3 [facility] Globulin Calc (S) [Mass/Vol] Ordered By: Constantine Perdomo on 03-05-2023 Globulin (S) [Mass/Vol] 3.8 g/dL F [facility] Glucose Glucometer (BldC) [M ass/Vol]Ordered By: Marcel Arreaga on 03-05-2023 Glucose [Mass/Vol] 224 mg/dL [facility] Comment on above: Random Glucose Refer ence Range is dependent on time and content of last meal. Glucose of more than 200 mg/dL in a nonstressed, ambulatory subject supports the diagnosis of Diabetes Mellitus. Glucose Poct Glucometerson 0 03-05-2023 Commemt1 Glu2: Cleaned Meter Normal [facility] Comment on above: Result Comment: PERF ORMED BY:[facility] [place], [place] [phone] MEDICAL DIRECTORRAMEZ LARSON M.D. Performed By: #### G LULS ####Point of Care testing, Glucose [Mass/Vol] 224 mg/dL Normal [facility] Comment on above: Result Comment: [place] om Glucose Reference Range is dependent on time and content of last meal. Glucose of more than 200 mg/dL in a nonstressed, ambulatory subject supports the diagnosis of Diabetes Mellitus. Performed By: #### G LULS ####Point of Care testing, Glucose [Mass/volume] in Ser um or PlasmaOrdered By: Constantine Perdomo on 03-05-2023 Glucose [Mass/Vol] 212 mg/dL 70-100 [facility] Comment on above: ADA recommended refe rence rangeRandom Glucose Reference Range is dependent on time and content of last meal. Glucose of more than 200 mg/dL in a nonstressed, ambulatory subject supports the diagnosis of Diabetes Mellitus. Hematocrit Auto (Bld) [Volum e fraction]Ordered By: Constantine Perdomo on 03-05-2023 Hematocrit (Bld) [Volume fraction] 33.8 % 34.0-46.4 [facility] Hemoglobin [Mass/volume] in BloodOrdered By: Constantine Perdomo on 03-05-2023 Hemoglobin (Bld) [Mass/Vol] 10.8 g/dL 11.8-15.4 [facility] Lactate [Moles/volume] in Se rum or PlasmaOrdered By: Constantine Perdomo on 03-05-2023 Lactate [Moles/Vol] 2.5 mmol/L 0.5-2.2 [facility] Comment on above: Critical Result : Ca lled to and read back by: ARMANI BRUNO at: 03/05/2023 18:20:52 by:[id number] Lactic Acidon 03-05-2023 Lactate [Moles/Vol] 2.5 mmol/L Off scale high 0.5-2.2 F [facility] Comment on above: Result Comment: Crit ical Result : Called to and read back by: ARMANI BRUNO at: 03/05/2023 18:20:52 by:[id number] BY:[facility] [place], [place] [phone] MEDICAL DIRECTORRAMEZ LARSON M.D. Performed By: #### C MP, CUBLD, LACTIC, BNP, HS TROP, CBC ####[facility] [place] [address] [facility] Leukocytes [#/volume] correc tr for nucleated erythrocytes in Blood by Automated counOrdered By: Constantine Perdomo on 03-05-2023 WBC corrected for nucl RBC Auto (Bld) [#/Vol] 8.1 10*3/uL 3.8-11.6 [facility] Lymphocytes Auto (Bld) [#/Vo l]Ordered By: Constantine Perdomo on 03-05-2023 Lymphocytes (Bld) [#/Vol] 0.7 10*3/uL 1.00-4.8 [facility] Lymphocytes/100 WBC Auto (Bl d)Ordered By: Constantine Perdomo on 03-05-2023 Lymphocytes/100 WBC (Bld) 9.1 % . [facility] MCH Auto (RBC) [Entitic mass ]Ordered By: Constantine Perdomo on 03-05-2023 MCH (RBC) [Entitic mass] 27.2 pg 24.7-34.3 [facility] MCHC Auto (RBC) [Mass/Vol]Or dered By: Constantine Perdomo on 03-05-2023 MCHC (RBC) [Mass/Vol] 32.0 g/dL 32.0-35.0 [facility] MCV Auto (RBC) [Entitic vol] Ordered By: Constantine Perdomo on 03-05-2023 MCV (RBC) [Entitic vol] 85.0 fL 80-100 F [facility] Monocyte distribution width [Entitic volume] in Blood by AutomatedOrdered By: Constantine Perdomo on 03-05-2023 Monocyte distribution width Auto (Bld) [Entitic vol] 24.78 % 0.00-20.00 [facility] Comment on above: For adults in ED, MD W > 20.0 may be associated with a higher risk of sepsis during the first 12 hrs of hospital admission Monocytes Auto (Bld) [#/Vol] Ordered By: Constantine Perdomo on 03-05-2023 Monocytes (Bld) [#/Vol] 0.8 10*3/uL 0.0-0.8 [facility] Monocytes/100 WBC Auto (Bld) Ordered By: Constantine Perdomo on 03-05-2023 Monocytes/100 WBC (Bld) 9.2 % . F [facility] Natriuretic peptide B [Mass/ Vol]Ordered By: Constantine Perdomo on 03-05-2023 Natriuretic peptide B (Bld) [Mass/Vol] 872.0 pg/mL 5-100 [facility] Neutrophils Auto (Bld) [#/Vo l]Ordered By: Constantine Perdomo on 03-05-2023 Neutrophils (Bld) [#/Vol] 6.6 10*3/uL 1.8-7.7 [facility] Neutrophils/100 WBC Auto (Bl d)Ordered By: Constantine Perdomo on 03-05-2023 Neutrophils/100 WBC (Bld) 81.3 % . [facility] No Panel InformationOrdered By: Constantine Perdomo on 03-05-2023 Estimated GFR (CKD-EPI) 19.351 mL/Min [facility] Pharmacy Creatinine Clearance (Chem 16.47 [facility] No Panel InformationOrdered By: Marcel Arreaga on 03-05-2023 Bedside Glucose Comment Glu2: cleaned meter [facility] Nucleated erythrocytes [Pres ence] in Blood by Automated countOrdered By: Constantine Perdomo on 03-05-2023 Nucleated RBC Auto Ql (Bld) 0.0 /100{WBC} 0-0.5 [facility] Nursing Assessment - Woundon 03-05-2023 Nursing Assessment - Wound [id number]#1.00TI FF Normal [facility] Platelet mean volume Auto (B ld) [Entitic vol]Ordered By: Constantine Perdomo on 03-05-2023 Platelet mean volume (Bld) [Entitic vol] 7.3 fL 6.3-10.7 [facility] Platelets Auto (Bld) [#/Vol] Ordered By: Constantine Perdomo on 03-05-2023 Platelets (Bld) [#/Vol] 418 10*3/uL 150-450 [facility] Potassium [Moles/volume] in Serum or PlasmaOrdered By: Constantine Perdomo on 03-05-2023 Potassium [Moles/Vol] 3.1 mmol/L 3.5-5.1 [facility] Protein [Mass/volume] in Ser um or PlasmaOrdered By: Constantine Perdomo on 03-05-2023 Protein [Mass/Vol] 7.3 g/dL 6.4-8.9 [facility] RBC Auto (Bld) [#/Vol]Ordere d By: Constantine Perdomo on 03-05-2023 RBC (Bld) [#/Vol] 3.98 10*6/uL 3.60-5.00 [facility] Serum or plasma albumin/glob ulin mass ratioOrdered By: Constantine Perdomo on 03-05-2023 Albumin/Globulin [Mass ratio] 0.9 {ratio} [facility] Serum or plasma anion gap de terminationOrdered By: Constantine Perdomo on 03-05-2023 Anion gap [Moles/Vol] 17.4 mmol/L 6.0-15.0 [facility] Sodium [Moles/volume] in Ser um or PlasmaOrdered By: Constantine Perdomo on 03-05-2023 Sodium [Moles/Vol] 133 mmol/L 136-145 [facility] Troponin I High Sensitivityo n 03-05-2023 Troponin I High Sensitivity 21.4 pg/mL High 0.0-15.0 [facility] Comment on above: Result Comment: PERF ORMED BY:[facility] [place], [place] [phone] MEDICAL DIRECTORRAMEZ LARSON M.D. Performed By: #### C MP, CUBLD, LACTIC, BNP, HS TROP, CBC ####[facility] [place] [address] [facility] Troponin I.cardiac [Mass/vol ume] in Serum or Plasma by Detection limit <= 0.01 ng/Ordered By: Constantine Perdomo on 03-05-2023 Troponin I.cardiac DL <= 0.01 ng/mL [Mass/Vol] 21.4 pg/mL 0.0-15.0 [facility] Urea nitrogen [Mass/volume] in Serum or PlasmaOrdered By: Constantine Perdomo on 03-05-2023 Urea nitrogen [Mass/Vol] 15 mg/dL 7-25 [facility] WBC Auto (Bld) [#/Vol]Ordere d By: Constantine Perdomo on 03-05-2023 WBC (Bld) [#/Vol] 8.1 10*3/uL 3.8-11.6 [facility] XR chest 1V portableon 03-05 XR chest 1V portable Normal [facility] Consent for Procedure/Surger yon 03-04-2023 Consent for Procedure/Surgery [id number]#1.00TIF F Normal [facility] Consent for Treatmenton 02-11 Consent for Treatment [id number]#1.00TIF F [facility] Multi-Wound Charton 03-04-19 24 Multi-Wound Chart [id number] [id number]#1.00TI FF [facility] Nursing Assessment - Woundon 03-04-2023 Nursing Assessment - Wound [id number]#1.00TI FF [facility] Nursing Note - Woundon 03-04 Nursing Note - Wound [id number]#1.00TI FF [facility] Physician Orderon 03-04-2023 Physician Order [id number] [id number]#1.00TI FF [facility] Procedure - Woundon 03-04-19 Procedure - Wound [id number] [id number]#1.00TI FF [facility] Progress Note - Woundon 02-11 Progress Note - Wound [id number]#1.00TI FF [facility] Nursing Note - Woundon 02-26 Nursing Note - Wound [id number]#2.00TI FF [facility] Consent for Treatmenton 02-10 Consent for Treatment [id number]#1.00TIF F [facility] Consent to Photographon 02-10 Consent to Photograph [id number]#1.00TI FF [facility] Correspondence - [place] Correspondence - Wound [id number]#1.00TI FF [facility] Correspondence - Wound [id number]#1.00TI FF [facility] Multi-Wound Charton 02-25-19 Multi-Wound Chart [id number] [id number]#1.00TI FF [facility] Nursing Assessment - Woundon 02-25-2023 Nursing Assessment - Wound [id number]#2.00TI FF [facility] Physician Orderon 02-25-2023 Physician Order [id number] [id number]#1.00TI FF [facility] Procedure - Woundon 02-25-19 Procedure - Wound [id number] [id number]#1.00TI FF [facility] Progress Note - Woundon 02-10 Progress Note - Wound [id number]#1.00TI FF [facility] Telemedicineon 02-25-2023 Telemedicine [id number] Wilbert Wilson 1945 F Date Provider Department [place] 02/25/2023 NADEEM LOMBARDO CARD [facility] No family history on file Level of Service:67151 [place] PHYS/QHP TELEPHONE EVALUATION 11-20 MIN Normal [facility] BASIC METABOLIC PANELon 12-2 Anion gap [Moles/Vol] 12 mmol/L Normal 7-20 [facility] Comment on above: Performed By: #### L AB15 #### [facility] [address] [place] [address] Calcium [Mass/Vol] 9.9 mg/dL Normal 8.6-10.3 [facility] Comment on above: Performed By: #### L [id number] #### [facility] [address] [place] [address] Chloride [Moles/Vol] 97 mmol/L Low 98-107 [facility] Comment on above: Performed By: #### L [id number] #### [facility] ([facility]) [address] [address] CO2 [Moles/Vol] 29 mmol/L Normal 21-31 [facility] Comment on above: Performed By: #### L [id number] #### [facility] ([facility]) [address] [address] Creatinine [Mass/Vol] 3.02 mg/dL High 0.60-1.20 [facility] Comment on above: Performed By: #### L [id number] #### [facility] ([facility]) [address] [address] GLOMERULAR FILTRATION RATE ML/MIN/1.73 SQ M.PREDICTED 15.6 mL/min/1.73m*2 Low >60.0 [facility] Comment on above: Result Comment: The [facility]???s estimated glomerular filtration rate (eGFR) will no longer include consideration of race in its calculation. The National Kidney Foundation???s eGFR Task Force developed new recommendations for the estimation of the glomerular filtration rate in the [place] They recommend immediate implementation of the new equation refit without the race variable in all laboratories because the calculation does not include race. In addition to not including race in the calculation and reporting, it included diversity in its development, and has acceptable performance characteristics and potential consequences that do not disproportionately affect any one group of individuals. Performed By: #### L [id number] #### [facility] ([facility]) [address] [address] Glucose [Mass/Vol] 158 mg/dL High 70-100 [facility] Comment on above: Performed By: #### L [id number] #### [facility] ([facility]) [address] [address] Potassium [Moles/Vol] 3.8 mmol/L Normal 3.5-5.1 [facility] Comment on above: Performed By: #### L [id number] #### [facility] [address] [address] Sodium [Moles/Vol] 134 mmol/L Low 136-145 [facility] Comment on above: Performed By: #### L [id number] #### [facility] [address] [place] [address] Urea nitrogen [Mass/Vol] 19 mg/dL Normal 7-25 [facility] Comment on above: Performed By: #### L [id number] #### [facility] [address] [place] [address] UREA NITROGEN/CREATININE (MASS RATIO) IN SER/PLAS 6.3 Normal [facility] Comment on above: Performed By: #### L [id number] #### [facility] ([facility]) [address] [place] [address] CBCon 02-01-2023 Erythrocyte distribution width (RBC) [Ratio] 17.9 % High 11.5-15.0 [facility] Comment on above: Performed By: #### L [id number] ####[facility] ([facility])[address] [place] [address] ERYTHROCYTE MEAN CORPUSCULAR HEMOGLOBIN CONCENTRATION (G/DL) BY AUTOMATED 29.4 g/dL Low 32.0-35.0 [facility] Comment on above: Performed By: #### L [id number] ####[facility] ([facility])[address] [place] [address] Hematocrit (Bld) [Volume fraction] 35.4 % Low 36.0-48.0 [facility] Comment on above: Performed By: #### L [id number] ####[facility] ([facility] [place] [address] Hemoglobin (Bld) [Mass/Vol] 10.4 g/dL Low 12.0-15.0 [facility] Comment on above: Performed By: #### L [id number] ####[facility] ([facility])[address] [place] [address] MCH (RBC) [Entitic mass] 27.5 pg Normal 27.0-33.0 [facility] Comment on above: Performed By: #### L [id number] ####[facility] ([facility])[address] [place] [address] MCV (RBC) [Entitic vol] 93.7 fL Normal 82.0-98.0 [facility] Comment on above: Performed By: #### L [id number] ####[facility] ([facility])[address] [place] [address] PLATELETS (10*3/UL) IN BLOOD AUTOMATED COUNT 326 10*3/uL Normal 150-400 [facility] Comment on above: Performed By: #### L [id number] ####[facility] ([facility])[address] [place] [address] RBC (Bld) [#/Vol] 3.78 10*6/uL Low 3.80-5.00 [facility] Comment on above: Performed By: #### L [id number] ####[facility] ([facility])[address] [place] [address] WBC (Bld) [#/Vol] 8.14 10*3/uL Normal 4.00-10.60 [facility] Comment on above: Performed By: #### L [id number] ####[facility] ([facility])[address] [place] [address] POCT GLUCOSE METER UNSOLICIT ED RESULTSon 02-01-2023 Glucose [Mass/Vol] 150 mg/dL High 70-105 [facility] Comment on above: Order Comment: Waive d Testing in the ED is performed under the ED CLIA certificate #[id number]. Result Comment: [email or web address] Performed By: #### L [id number] #### [facility] ([facility]) [address] [place] [address] 30on 01-31-2023 30 The patient is Moderately Stable - Low risk of patient condition declining or worsening The patient's goals for the shift include comfort The clinical goals for the shift include stable vitals Normal [facility] 30 The patient is Moderately Stable - Low risk of patient condition declining or worsening The patient's goals for the shift include comfort The clinical goals for the shift include stable VS Problem: Pain - Adult Goal: Verbalizes/displays adequate comfort level or baseline comfort level Outcome: Progressing Flowsheets (Taken 01/31/2023 08) Verbalizes/displays adequate comfort level or baseline comfort level: Encourage patient to monitor pain and request assistance Assess pain using appropriate pain scale Administer analgesics based on type and severity of pain and evaluate response Implement non-pharmacological measures as appropriate and evaluate response Notify Licensed Independent Practitioner if interventions unsuccessful or patient reports new pain Consider cultural and social influences on pain and pain management Problem: Safety - Adult Goal: Free from fall injury Outcome: Progressing Flowsheets (Taken 01/31/2023799) Free from fall injury: Assess patient frequently for physical needs Identify cognitive and physical deficits and behaviors that affect risk of falls [place] fall precautions as indicated by assessment Educate patient/family on patient safety, including physical limitations Instruct patient to call for assistance with activity based on assessment Modify environment to reduce risk of injury Consider OT/PT consult to assist with strengthening/mobility Problem: Discharge Planning Goal: Discharge to home or other facility with appropriate resources Outcome: Progressing Flowsheets (Taken 01/31/2023 09) Discharge to home or other facility with appropriate resources: Identify barriers to discharge with patient and caregiver Arrange for needed discharge resources and transportation as appropriate Identify discharge learning needs (meds, wound care, etc) Arrange for interpreters to assist at discharge as needed Refer to discharge planning if patient needs post-hospital services based on physician order or complex needs related to functional status, cognitive ability or social support system Normal [facility] BASIC METABOLIC PANELon 12-2 Anion gap [Moles/Vol] 14 mmol/L Normal 7-20 [facility] Comment on above: Performed By: #### L [id number] #### [facility] [address] [place] [address] Calcium [Mass/Vol] 10.2 mg/dL Normal 8.6-10.3 [facility] Comment on above: Performed By: #### L [id number] #### [facility] ([facility]) [address] [place] [address] Chloride [Moles/Vol] 93 mmol/L Low 98-107 [facility] Comment on above: Performed By: #### L [id number] #### [facility] ([facility]) [address] [place] [address] CO2 [Moles/Vol] 27 mmol/L Normal 21-31 [facility] Comment on above: Performed By: #### L [id number] #### [facility] ([facility]) [address] [place] [address] Creatinine [Mass/Vol] 4.25 mg/dL High 0.60-1.20 [facility] Comment on above: Performed By: #### L [id number] #### [facility] ([facility]) [address] [place] [address] GLOMERULAR FILTRATION RATE ML/MIN/1.73 SQ M.PREDICTED 10.4 mL/min/1.73m*2 Low >60.0 [facility] Comment on above: Result Comment: The [facility]???s estimated glomerular filtration rate (eGFR) will no longer include consideration of race in its calculation. The National Kidney Foundation???s eGFR Task Force developed new recommendations for the estimation of the glomerular filtration rate in the [place] They recommend immediate implementation of the new equation refit without the race variable in all laboratories because the calculation does not include race. In addition to not including race in the calculation and reporting, it included diversity in its development, and has acceptable performance characteristics and potential consequences that do not disproportionately affect any one group of individuals. Performed By: #### L [id number] #### [facility] ([facility]) [address] [place] [address] Glucose [Mass/Vol] 151 mg/dL High 70-100 [facility] Comment on above: Performed By: #### L [id number] #### [facility] ([facility]) [address] [place] [address] Potassium [Moles/Vol] 4.1 mmol/L Normal 3.5-5.1 [facility] Comment on above: Performed By: #### L [id number] #### [facility] ([facility]) [address] [address] Sodium [Moles/Vol] 130 mmol/L Low 136-145 [facility] Comment on above: Performed By: #### L [id number] #### [facility] ([facility]) [address] [address] Urea nitrogen [Mass/Vol] 39 mg/dL High 7-25 [facility] Comment on above: Performed By: #### L [id number] #### [facility] ([facility]) [address] [place] [address] UREA NITROGEN/CREATININE (MASS RATIO) IN SER/PLAS 9.2 Normal [facility] Comment on above: Performed By: #### L [id number] #### [facility] ([facility]) [address] [place] [address] CBCon 01-31-2023 Erythrocyte distribution width (RBC) [Ratio] 17.7 % High 11.5-15.0 [facility] Comment on above: Performed By: #### L [id number] #### [facility] ([facility] [address] [address] ERYTHROCYTE MEAN CORPUSCULAR HEMOGLOBIN CONCENTRATION (G/DL) BY AUTOMATED 29.7 g/dL Low 32.0-35.0 [facility] Comment on above: Performed By: #### L [id number] #### [facility] ([facility]) [address] [place] [address] Hematocrit (Bld) [Volume fraction] 34.0 % Low 36.0-48.0 [facility] Comment on above: Performed By: #### L [id number] #### [facility] ([facility]) [address] [place] [address] Hemoglobin (Bld) [Mass/Vol] 10.1 g/dL Low 12.0-15.0 [facility] Comment on above: Performed By: #### L [id number] #### [facility] ([facility]) [address] [place] [address] MCH (RBC) [Entitic mass] 27.4 pg Normal 27.0-33.0 [facility] Comment on above: Performed By: #### L [id number] #### [facility] ([facility]) [address] [address] MCV (RBC) [Entitic vol] 92.4 fL Normal 82.0-98.0 [facility] Comment on above: Performed By: #### L [id number] #### [facility] ([facility]) [address] [address] PLATELETS (10*3/UL) IN BLOOD AUTOMATED COUNT 339 10*3/uL Normal 150-400 [facility] Comment on above: Performed By: #### L [id number] #### [facility] ([facility]) [address] [place] [address] RBC (Bld) [#/Vol] 3.68 10*6/uL Low 3.80-5.00 [facility] Comment on above: Performed By: #### L [id number] #### [facility] ([facility]) [address] [place] [address] WBC (Bld) [#/Vol] 9.44 10*3/uL Normal 4.00-10.60 [facility] Comment on above: Performed By: #### L [id number] #### [facility] ([facility]) [address] [address] MAGNESIUMon 01-31-2023 Magnesium [Mass/Vol] 2.3 mg/dL Normal 1.9-2.7 [facility] Comment on above: Performed By: #### L [id number] ####[facility] ([facility])[address] [place] [address] PHOSPHORUSon 01-31-2023 Magnesium [Mass/Vol] 4.4 mg/dL Normal 2.5-5.0 [facility] Comment on above: Performed By: #### L [id number] ####[facility] ([facility])[address] [place] [address] POCT GLUCOSE METER UNSOLICIT ED RESULTSon 01-31-2023 Glucose [Mass/Vol] 278 mg/dL High 70-105 [facility] Comment on above: Order Comment: Waive d Testing in the ED is performed under the ED CLIA certificate #[id number]. Result Comment: [email or web address] Performed By: #### L [id number] ####[facility] ([facility])[address] [place] [address] Glucose [Mass/Vol] 218 mg/dL High 70-105 [facility] Comment on above: Order Comment: Waive d Testing in the ED is performed under the ED CLIA certificate #[id number]. Result Comment: [email or web address] [email or web address] Performed By: #### L [id number] ####[facility] ([facility])[address] [address] Glucose [Mass/Vol] 169 mg/dL High 70-105 [facility] Comment on above: Order Comment: Waive d Testing in the ED is performed under the ED CLIA certificate #[id number]. Result Comment: [email or web address] [email or web address] Performed By: #### L [id number] #### [facility] ([facility]) [address] [address] 30on 01-30-2023 30 The patient is Moderately Stable - Low risk of patient condition declining or worsening The patient's goals for the shift include comfort The clinical goals for the shift include stable vitals Normal [facility] 30 The patient is Moderately Stable - Low risk of patient condition declining or worsening Problem: Pain - Adult Goal: Verbalizes/displays adequate comfort level or baseline comfort level Outcome: Progressing Flowsheets (Taken 01/30/2023 0800) Verbalizes/displays adequate comfort level or baseline comfort level: Encourage patient to monitor pain and request assistance Assess pain using appropriate pain scale Administer analgesics based on type and severity of pain and evaluate response Implement non-pharmacological measures as appropriate and evaluate response Consider cultural and social influences on pain and pain management Notify Licensed Independent Practitioner if interventions unsuccessful or patient reports new pain Problem: Safety - Adult Goal: Free from fall injury Outcome: Progressing Flowsheets (Taken 01/30/2023 09) Free from fall injury: Assess patient frequently for physical needs Identify cognitive and physical deficits and behaviors that affect risk of falls [place] fall precautions as indicated by assessment Educate patient/family on patient safety, including physical limitations Consider OT/PT consult to assist with strengthening/mobility Instruct patient to call for assistance with activity based on assessment Modify environment to reduce risk of injury Problem: Chronic Conditions and Co-morbidities Goal: Patient's chronic conditions and co-morbidity symptoms are monitored and maintained or improved Outcome: Progressing Flowsheets (Taken 01/30/2023 09) Care Plan - Patient's Chronic Conditions and Co-Morbidity Symptoms are Monitored and Maintained or Improved: Monitor and assess patient's chronic conditions and comorbid symptoms for stability, deterioration, or improvement Collaborate with multidisciplinary team to address chronic and comorbid conditions and prevent exacerbation or deterioration Update acute care plan with appropriate goals if chronic or comorbid symptoms are exacerbated and prevent overall improvement and discharge The patient's goals for the shift include comfort The clinical goals for the shift include VSS Normal [facility] 30 Daily Case Managemen t Update Multidisciplinary rounds have been completed. Barriers to Discharge: Pending clinical course and improvement in clinical condition. Patient presented to the ER w/VT >3 min discovered on holter monitor. Cardiology consulted and ECHO performed; pending results. Patient current with [facility] at home. Plans to return home with daughter with home health care. Diet: Dietary Orders (From admission, onward) Start Ordered 01/30/23 07 Diet NPO Diet effective now Comments: Sips with medications Question: Reason for NPO: Answer: Operation/Procedure 01/30/23 0725 01/30/23 0611 Special Kitchen Request Once Comments: Cream of wheat Brown sugar Low fat yogurt, arias 01/30/23 0611 Physician Expected Discharge Date: 02/01/2023 Discharge Delays: PT Six Click Score: OT Six Click Score: PT Recommendations: OT Recommendations: Does patient understand post acute plan of care? Yes Is expected discharge disposition appropriate for patient?: Yes New Consults: Consult Orders (From admission, onward) Start Ordered 01/29/23 2304 Inpatient consult to Cardiology Once Specialty: Cardiology Provider: (Not yet assigned) Question Answer Comment Reason for Consult? Nonsustained V. tach, known patient [employer] CARDIOLOGY TEAM Level of Consultation Consultation and Management Did you contact the consultant internship? 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 No 01/29/232302 Ancillary Consults (From admission, onward) Start Ordered 01/30/23137 Inpatient consult to Wound/Ostomy Nurse Once Comments: Consult Wound Nurse for at-risk for PU, stage 1, stage 2, or stage 3 ulcers smaller than 5 cm diameter. For all stage 3 ulcers larger than 5 cm diameter, stage 4, unstageable, DTI, infected PU, and lower extremity ulcers use the Inpatient consult to Vascular Wound Care Provider: (Not yet assigned) Question Answer Comment Consult for: Wound Reason for Consult? pressure ulcer to sacrum, multiple wounds to BLE r/t falls 01/30/23136 Normal [facility] 30 The patient is Moderately Stable - Low risk of patient condition declining or worsening The patient's goals for the shift include comfort The clinical goals for the shift include VSS Problem: Pain - Adult Goal: Verbalizes/displays adequate comfort level or baseline comfort level Outcome: Progressing Problem: Safety - Adult Goal: Free from fall injury Outcome: Progressing Problem: Respiratory - Adult Goal: Achieves optimal ventilation and oxygenation Outcome: Progressing Normal [facility] 30 The patient is Moderately Stable - Low risk of patient condition declining or worsening The patient's goals for the shift include comfort The clinical goals for the shift include VSS Normal [facility] BASIC METABOLIC PANELon 12-2 Anion gap [Moles/Vol] 13 mmol/L Normal 7-20 [facility] Comment on above: Performed By: #### L [id number] #### [facility] ([facility]) [address] [place] [address] Calcium [Mass/Vol] 9.8 mg/dL Normal 8.6-10.3 [facility] Comment on above: Performed By: #### L [id number] #### [facility] ([facility]ER) [address] [place] [address] Chloride [Moles/Vol] 94 mmol/L Low 98-107 [facility] Comment on above: Performed By: #### L [id number] #### [facility] ([facility]) [address] [place] [address] CO2 [Moles/Vol] 28 mmol/L Normal 21-31 [facility] Comment on above: Performed By: #### L [id number] #### [facility] ([facility]) [address] [address] Creatinine [Mass/Vol] 3.15 mg/dL High 0.60-1.20 [facility] Comment on above: Performed By: #### L [id number] #### [facility] ([facility]) [address] [place] [address] GLOMERULAR FILTRATION RATE ML/MIN/1.73 SQ M.PREDICTED 14.8 mL/min/1.73m*2 Low >60.0 [facility] Comment on above: Result Comment: The [facility]???s estimated glomerular filtration rate (eGFR) will no longer include consideration of race in its calculation. The National Kidney Foundation???s eGFR Task Force developed new recommendations for the estimation of the glomerular filtration rate in the [place] They recommend immediate implementation of the new equation refit without the race variable in all laboratories because the calculation does not include race. In addition to not including race in the calculation and reporting, it included diversity in its development, and has acceptable performance characteristics and potential consequences that do not disproportionately affect any one group of individuals. Performed By: #### L [id number] #### [facility] ([facility]) [address] [place] [address] Glucose [Mass/Vol] 177 mg/dL High 70-100 [facility] Comment on above: Performed By: #### L [id number] #### [facility] ([facility]) [address] [address] Potassium [Moles/Vol] 3.5 mmol/L Normal 3.5-5.1 [facility] Comment on above: Performed By: #### L [id number] #### [facility] ([facility]ER) [address] [place] [address] Sodium [Moles/Vol] 131 mmol/L Low 136-145 [facility] Comment on above: Performed By: #### L [id number] #### [facility] ([facility]) [address] [place] [address] Urea nitrogen [Mass/Vol] 29 mg/dL High 7-25 [facility] Comment on above: Performed By: #### L [id number] #### [facility] ([facility]ER) [address] [place] [address] UREA NITROGEN/CREATININE (MASS RATIO) IN SER/PLAS 9.2 Normal [facility] Comment on above: Performed By: #### L [id number] #### [facility] ([facility]) [address] [place] [address] CBCon 01-30-2023 Erythrocyte distribution width (RBC) [Ratio] 17.6 % High 11.5-15.0 [facility] Comment on above: Performed By: #### L [id number] #### [facility] ([facility]) [address] [place] [address] ERYTHROCYTE MEAN CORPUSCULAR HEMOGLOBIN CONCENTRATION (G/DL) BY AUTOMATED 29.2 g/dL Low 32.0-35.0 [facility] Comment on above: Performed By: #### L [id number] #### [facility] ([facility]) [address] [place] [address] Hematocrit (Bld) [Volume fraction] 32.5 % Low 36.0-48.0 [facility] Comment on above: Performed By: #### L [id number] #### [facility] ([facility]ER) [address] [address] Hemoglobin (Bld) [Mass/Vol] 9.5 g/dL Low 12.0-15.0 [facility] Comment on above: Performed By: #### L [id number] #### [facility] ([facility]AKER) [address] [address] MCH (RBC) [Entitic mass] 27.2 pg Normal 27.0-33.0 [facility] Comment on above: Performed By: #### L [id number] #### [facility] ([facility]) [address] [place] [address] MCV (RBC) [Entitic vol] 93.1 fL Normal 82.0-98.0 [facility] Comment on above: Performed By: #### L [id number] #### [facility] ([facility]) [address] [place] [address] PLATELETS (10*3/UL) IN BLOOD AUTOMATED COUNT 343 10*3/uL Normal 150-400 [facility] Comment on above: Performed By: #### L [id number] #### [facility] ([facility]) [address] [place] [address] RBC (Bld) [#/Vol] 3.49 10*6/uL Low 3.80-5.00 [facility] Comment on above: Performed By: #### L [id number] #### [facility] ([facility]) [address] [place] [address] WBC (Bld) [#/Vol] 8.30 10*3/uL Normal 4.00-10.60 [facility] Comment on above: Performed By: #### L [id number] #### [facility] ([facility]) [address] [place] [address] CONSULTon 01-30-2023 CONSULT [place] Electrophysiology Consult Note Reason for visit: VT HPI: Cinthya Wilson is a 77 y.o. year old with past medical history of ESRD, on hemodialysis, MWF, aortic stenosis, CAD, status post PCI (LAD stent), COPD, on home oxygen 3 L, anemia and history of recent syncope was previously seen by Dr SILVER and noted to have NSVT. She was previously mentioned to have exertional dyspnea without any CP. She had previously endorsed syncope and happened on 2 occassions, She states that she felt lightheaded and then passed out. No CP/ SOB associated with that episode. [facility] records during syncope eval and at that time she also had episodes of nonsustained V. tach. Upon workup in the ER, patient's magnesium and potassium were found to be low and were replaced. She was then seen by Ryan monroe a 30d event monitor revealed multiple episodes of VT, most precipitated by a PVC. She was informed to get admitted and is not in the floor. Since admission, she had a few PVC but no evidence of NSVT. Her last echo was done in 2019 and showed normal EF. Event monitor: VT, multiple episodes noted. PMH: Past Medical History: Diagnosis Date CAD (coronary artery disease) 09/23/2021 COPD (chronic obstructive pulmonary disease) ([facility]) 09/23/2021 Diastolic heart failure ([facility]) 09/23/2021 Dyspnea 09/23/2021 Edema 09/23/2021 Essential hypertension 09/23/2021 Hyperlipemia 09/23/2021 Kidney disease 09/23/2021 Orthopnea 09/23/2021 Primary malignant neoplasm ([facility]) 09/23/2021 Sleep apnea Type 1 diabetes ([facility]) 09/23/2021 PSH: Past Surgical History: Procedure Laterality Date CARDIAC CATHETERIZATION 12/07/2015 NECK SURGERY 06/03/2014 THORACENTESIS Right SH: Social Determinants of Health Tobacco Use: Low Risk (01/29/2023) Patient History Smoking Tobacco Use: Never Smokeless Tobacco Use: Never Passive Exposure: Not on file Alcohol Use: Not At Risk (01/29/2023) AUDIT-C Frequency of Alcohol Consumption: Never Average Number of Drinks: Patient does not drink Frequency of Binge Drinking: Never Financial Resource Strain: Low Risk (01/29/2023) Overall Financial Resource Strain (CARDIA) Difficulty of Paying Living Expenses: Not hard at all Food Insecurity: No Food Insecurity (01/29/2023) Hunger Vital Sign Worried About Running Out of Food in the Last Year: Never true Ran Out of Food in the Last Year: Never true Transportation Needs: No Transportation Needs (01/29/2023) PRAPARE - Transportation Lack of Transportation (Medical): No Lack of Transportation (Non-Medical): No Physical Activity: Inactive (01/29/2023) Exercise Vital Sign Days of Exercise per Week: 0 days Minutes of Exercise per Session: 0 min Stress: Stress Concern Present (01/29/2023) [employer] [place] [employer] - Occupational Stress Questionnaire Feeling of Stress : To some extent Social Connections: Socially Isolated (01/29/2023) Social Connection and Isolation Panel [NHANES] Frequency of Communication with Friends and Family: More than three times a week Frequency of Social Gatherings with Friends and Family: Once a week Attends [employer] Services: Never Active Member of Clubs or Organizations: No Attends Club or Organization Meetings: Never Marital Status: Intimate Partner Violence: Not At Risk (01/29/2023) Humiliation, Afraid, Rape, and Kick questionnaire Fear of Current or Ex-Partner: No Emotionally Abused: No Physically Abused: No Sexually Abused: No Depression: Not on file Housing Stability: Low Risk (01/29/2023) Housing Stability Vital Sign Unable to Pay for Housing in the Last Year: No Number of Places Lived in the Last Year: 1 Unstable Housing in the Last Year: No Allergies: Allergies Allergen Reactions Benazepril Gabapentin Other Tongue swelling, increased confusion Lisinopril Meloxicam Other due to kidney issues in past with medication Weight: @WEIGHT@ Visit Vitals BP (!) 103/45 Pulse 54 Temp 36.8 ???C (98.2 ???F) (Temporal) Resp 16 Ht 1.626 m (5' 4 ) Wt 59.7 kg (131 lb 9.8 oz) SpO2 100% BMI 22.59 kg/m??? OB Status Hysterectomy Smoking Status Never BSA 1.64 m??? Meds: No current facility-administered medications on file prior to encounter. Current Outpatient Medications on File Prior to Encounter Medication Sig Dispense Refill amiodarone (Pacerone) 400 mg tablet Take 400 mg by mouth in the morning and at bedtime. aspirin 81 mg EC tablet Take 81 mg by mouth in the morning. atorvastatin (Lipitor) 40 mg tablet Take 40 mg by mouth at bedtime. busPIRone (Buspar) 10 mg tablet Take 10 mg by mouth twice a day. calcium acetate (Phoslo) 667 mg capsule Take 1,334 mg by mouth with breakfast, with lunch, and with evening meal. carvedilol (Coreg) 3.125 mg tablet Take 1 tablet (3.125 mg) by mouth with breakfast and with evening meal. (Patient not taking: Reported on 12/26/2022) 180 tablet 3 cholecalciferol (Vi (more content not included)... Normal [facility] CONSULT ---- -------- Attestation signed by Saad Wade MD at 01/30/2023 8:13 PM I personally saw and examined the patient on the same date of service as resident/fellow . I discussed the findings and therapeutic plan with the resident/fellow . I agree with the documentation, except for any edits/updates below. Teaching Physician's Revisions: Patient with ESRD on HD who came in due to NSVT. She received HD session today. No indication for HD today. Patient does make urine and is on lasix. Fluid restriction for hyponatremia in the setting of ESRD. -------- Nephrology Consult Note Patient : Cinthya Wilson; 77 y.o. Location: [id number]/3107-01 Attending: Thomas Shore MD Admit Date: 01/29/2023 Hospital Day: 1 Reason for Consult: ESRD on HD MWF History of Present Illness: Cinthya Wilson is a 77 y.o. female who came from home with past medical history of ESRD, on hemodialysis, MWF, aortic stenosis, CAD, status post PCI, COPD, on home oxygen 3 L, anemia and history of recent syncope for what patient was on manager process for the last few weeks presented to ER by recommendation of her dental office receptionist because of runs of nonsustained V. tach on the monitor. Patient only complains of increased shortness of breath but no chest pain. She has lightheadedness. No recent falls. No nausea or vomiting. Patient states that she had the monitor in order to be evaluated for the need of pacemaker. Upon review of her records, patient was hospitalized at [facility] for syncope and at that time she also had episodes of nonsustained V. tach. Upon workup in the ER, patient's magnesium and potassium were found to be low and were replaced. Patient will be seen by cardiology tomorrow and will have echo done. Her last echo was done in 2019 and showed normal EF. Review of Systems: Review of Systems Constitutional: Negative for chills, fatigue and fever. Respiratory: Positive for shortness of breath. Negative for cough, chest tightness and wheezing. Cardiovascular: Negative for chest pain. Gastrointestinal: Negative for abdominal pain, diarrhea, nausea and vomiting. Input/Output: I/O last 3 completed shifts: In: 136.7 (2.3 mL/kg) [I.V.:136.7 (2.3 mL/kg)] Out: - (0 mL/kg) Weight: 59.7 kg Vital Signs: Temperature: Temp: 36.8 ???C (98.2 ???F) TMax: Temp (24hrs), Av.7 ???C (98 ???F), Min:36.5 ???C (97.7 ???F), Max:36.8 ???C (98.2 ???F) Respirations: Resp: 19 Pulse: Heart Rate: 58 BP: BP: 119/52 BP Range: Systolic (24hrs), Av , Min:100 , Max:125 Diastolic (24hrs), Av, Min:40, Max:59 Wt Readings from Last 3 Encounters: 01/30/23 59.7 kg (131 lb 9.8 oz) 12/26/22 60.8 kg (134 lb) 10/04/22 60.8 kg (134 lb) Physical Examination: Physical Exam Constitutional: General: She is not in acute distress. Comments: On NC HENT: Head: Normocephalic and atraumatic. Eyes: General: No scleral icterus. Cardiovascular: Rate and Rhythm: Bradycardia present. Heart sounds: No gallop. Pulmonary: Breath sounds: No wheezing or rhonchi. Comments: Decreased BS in right lower lobe Abdominal: Tenderness: There is no abdominal tenderness. Musculoskeletal: General: No swelling. Cervical back: Neck supple. Comments: BLE wound dressings Skin: Coloration: Skin is not jaundiced. Neurological: Mental Status: She is alert. Mental status is at baseline. Psychiatric: Behavior: Behavior normal. Labs: Chemistry: Lab Results Component Value Date NA 131 (L) 01/30/2023 K 3.5 01/30/2023 CL 94 (L) 01/30/2023 CO2 28 01/30/2023 CO2 26 10/14/2019 ANIONGAP 13 01/30/2023 BUN 29 (H) 01/30/2023 CREATININE 3.15 (H) 01/30/2023 EGFR 14.8 (L) 01/30/2023 GLU 160 (H) 10/14/2019 CALCIUM 9.8 01/30/2023 MG 2.4 01/30/2023 PHOS 3.3 01/30/2023 ALBUMIN 4.0 10/14/2019 PROT 6.6 10/14/2019 AST 21 10/14/2019 ALT 26 10/14/2019 BILITOT 0.4 10/14/2019 BILIDIR 0.0 10/14/2019 ALKPHOS 69 10/14/2019 Hematology & Iron studies: Lab Results Component Value Date WBC 8.30 01/30/2023 HGB 9.5 (L) 01/30/2023 HCT 32.5 (L) 01/30/2023 MCV 93.1 01/30/2023 PLT 343 01/30/2023 Urine chemistry: Lab Results Component Value Date PROTUR 100 (A) 10/08/2019 Urinalysis & Microscopy: Lab Results Component Value Date COLORU YELLOW 10/08/2019 CLARITYU CLEAR 10/08/2019 SPECGRAVU 1.013 (L) 10/08/2019 PROTUR 100 (A) 10/08/2019 LEUKOCYTESU NEGATIVE 10/08/2019 NITRITEU NEGATIVE 10/08/2019 GLUCOSEU 50 (A) 10/08/2019 BLOODU NEGATIVE 10/08/2019 WBCU 0-2 (A) 10/08/2019 SQUAMEPIU NONE SEEN 10/08/2019 Urine Eosinophils: No components found for: UEOS Serology & Other labs: BNP: Lab Results Component Value Date BNP 406 (H) 01/29/2023 DIVYA: No results found for: DIVYA SPEP:No results found for: PROT UPEP: No co (more content not included)... Normal [facility] CONSULT ---- -------- Attestation with edits by Cheli Lutz MD at 01/30/2023 2:16 PM I personally saw and examined the patient on the same date of service as resident/fellow Dr Ramirez. I discussed the findings and therapeutic plan with the resident/fellow Dr Ramirez. I agree with the documentation, except for any edits/updates below. Teaching Physician's Revisions: Cheli Lutz MD, MPH, [facility], [facility], [facility] Interventional Cardiology Pager Email: [email or web address] -------- Cardiology Consult Note Reason for Consult: SVT HPI: Cinthya Wilson is a 77 y.o. female with past medical history of CAD s/p PCI to LAD 2015, HFpEF 50-55%, aortic valve stenosis, ESRD HD MWF, COPD 3L NC, HTN, orthostatic hypotension who presents from cardiology clinic due to runs of NSVT seen on monitor. Of note, she was hospitalized at [facility] after syncopal episode last month. Note NSVT and bradycardia at her visit there. She was discontinued on her home beta madhu and event monitor at that point, started on amiodarone. After discharge, she saw her primary dental office receptionist, who recommended EP evaluation. Suggested to discontinue amiodarone given concurrent lung disease and kidney failure. On 01/29, event monitor picked up VT for greater than 3 minute stretch. Patient was completely asymptomatic at that time, reported to [facility] for evaluation. On examination, she is lying comfortably in bed. Denies having any recent chest pain, pressure, palpitations, lightheadedness. Only associated symptom is shortness of breath, which worsens with exertion. Cardiology ROS: GENERAL: Denies fever, chills, night sweats, weight loss. CARDIOVASCULAR: Denies chest pain, exertional dyspnea, orthopnea/PND, lower extremity edema, palpitations, lightheadedness/dizzines s, syncope. RESPIRATORY:+SOB, no coughing, wheezing GI: Denies abdominal pain, nausea/vomiting. PSYCH: Denies anxiety. Past Medical History She has a past medical history of CAD (coronary artery disease) (09/23/2021), COPD (chronic obstructive pulmonary disease) ([facility]) (09/23/2021), Diastolic heart failure ([facility]) (09/23/2021), Dyspnea (09/23/2021), Edema (09/23/2021), Essential hypertension (09/23/2021), Hyperlipemia (09/23/2021), Kidney disease (09/23/2021), Orthopnea (09/23/2021), Primary malignant neoplasm ([facility]) (09/23/2021), Sleep apnea, and Type 1 diabetes ([facility]) (09/23/2021). Surgical History She has a past surgical history that includes Thoracentesis (Right); Cardiac catheterization (12/07/2015); and Neck surgery (06/03/2014). Social History She reports that she has never smoked. She has never used smokeless tobacco. She reports that she does not drink alcohol and does not use drugs. Family History No family history on file. Allergies Benazepril, Gabapentin, Lisinopril, and Meloxicam Medications Medications Prior to Admission Medication Sig Dispense Refill Last Dose amiodarone (Pacerone) 400 mg tablet Take 400 mg by mouth in the morning and at bedtime. aspirin 81 mg EC tablet Take 81 mg by mouth in the morning. atorvastatin (Lipitor) 40 mg tablet Take 40 mg by mouth at bedtime. busPIRone (Buspar) 10 mg tablet Take 10 mg by mouth twice a day. calcium acetate (Phoslo) 667 mg capsule Take 1,334 mg by mouth with breakfast, with lunch, and with evening meal. carvedilol (Coreg) 3.125 mg tablet Take 1 tablet (3.125 mg) by mouth with breakfast and with evening meal. (Patient not taking: Reported on 12/26/2022) 180 tablet 3 cholecalciferol (Vitamin D-3) 25 MCG (1000 units) tablet every 12 (twelve) hours. citalopram (CeleXA) 40 mg tablet Take 40 mg by mouth in the morning. yxfuegkzcpb-glauhzkoe-xa lanter (Trelegy Ellipta) 200-62.5-25 mcg blister with device Inhale. furosemide (Lasix) 40 mg tablet Take 1.5 tablets by mouth in the morning and at bedtime. gabapentin (Neurontin) 100 mg capsule Take 100 mg by mouth twice a day. HumaLOG KwikPen Insulin 100 unit/mL injection HYDROcodone-acetaminophe n ([place]) 7.5-325 mg tablet Take 1 tablet by mouth if needed. midodrine (Proamatine) 5 mg tablet Take 1 tablet (5 mg) by mouth before breakfast, before lunch, and before evening meal. For low blood pressure, lightheadedness, dizziness (Patient taking differently: Take 5 mg by mouth if needed. For low blood pressure, lightheadedness, dizziness) 270 tablet 3 oxyCODONE-acetaminophen (Percocet) 5-325 mg tablet Take 1 tablet by mouth every 4 (four) hours if needed for severe pain (8-10 pain score). pantoprazole (ProtoNix) 40 mg EC tablet Take 40 mg by mouth before breakfast. Do not crush, chew, or split. pramipexole (Mirapex) 0.25 mg tablet Take 0.5 mg by mouth once daily as directed. pregabalin (Lyrica) 25 mg capsule Take 25 mg by mouth in the morning. 01/29/2023 v (more content not included)... Normal [facility] HEPATITIS B SURFACE ANTIGENo n 01-30-2023 HEPATITIS B VIRUS SURFACE AG PRESENCE IN SERUM Non-Reactive Normal Nonreactive [facility] Comment on above: Performed By: #### L [id number] #### [facility] ([facility]) [address] [place] [address] HEPATITIS C ANTIBODYon 01-30 HEPATITIS C VIRUS AB PRESENCE IN SERUM Non-Reactive Normal Nonreactive [facility] Comment on above: Performed By: #### L [id number] ####[facility] (PATTY)[address] [address] HPon 01-30-2023 HP H&P reviewed. The patient was examined and there are no changes to the H&P. Normal [facility] HP ---- -------- Attestation signed by Cheli Lutz MD at 01/30/2023 2:16 PM I personally saw and examined the patient on the same date of service as resident/fellow Dr Ramirez. I discussed the findings and therapeutic plan with the resident/fellow Dr Ramirez. I agree with the documentation, except for any edits/updates below. Teaching Physician's Revisions: Cheli Lutz MD, MPH, [facility], [facility], [facility] Interventional Cardiology Pager Email: [email or web address] -------- Cardiology Consult Note Reason for Consult: SVT HPI: Cinthya Wilson is a 77 y.o. female with past medical history of CAD s/p PCI to LAD 2016, HFpEF 50-55%, aortic valve stenosis, ESRD HD MWF, COPD 3L NC, HTN, orthostatic hypotension who presents from cardiology clinic due to runs of NSVT seen on monitor. Of note, she was hospitalized at [facility] after syncopal episode last month. Note NSVT and bradycardia at her visit there. She was discontinued on her home beta madhu and event monitor at that point, started on amiodarone. After discharge, she saw her primary dental office receptionist, who recommended EP evaluation. Suggested to discontinue amiodarone given concurrent lung disease and kidney failure. On 01/29, event monitor picked up VT for greater than 3 minute stretch. Patient was completely asymptomatic at that time, reported to [facility] for evaluation. On examination, she is lying comfortably in bed. Denies having any recent chest pain, pressure, palpitations, lightheadedness. Only associated symptom is shortness of breath, which worsens with exertion. Cardiology ROS: GENERAL: Denies fever, chills, night sweats, weight loss. CARDIOVASCULAR: Denies chest pain, exertional dyspnea, orthopnea/PND, lower extremity edema, palpitations, lightheadedness/dizzines s, syncope. RESPIRATORY:+SOB, no coughing, wheezing GI: Denies abdominal pain, nausea/vomiting. PSYCH: Denies anxiety. Past Medical History She has a past medical history of CAD (coronary artery disease) (09/23/2021), COPD (chronic obstructive pulmonary disease) ([facility]) (09/23/2021), Diastolic heart failure ([facility]) (09/23/2021), Dyspnea (09/23/2021), Edema (09/23/2021), Essential hypertension (09/23/2021), Hyperlipemia (09/23/2021), Kidney disease (09/23/2021), Orthopnea (09/23/2021), Primary malignant neoplasm ([facility]) (09/23/2021), Sleep apnea, and Type 1 diabetes ([facility]) (09/23/2021). Surgical History She has a past surgical history that includes Thoracentesis (Right); Cardiac catheterization (12/07/2015); and Neck surgery (06/03/2014). Social History She reports that she has never smoked. She has never used smokeless tobacco. She reports that she does not drink alcohol and does not use drugs. Family History No family history on file. Allergies Benazepril, Gabapentin, Lisinopril, and Meloxicam Medications Medications Prior to Admission Medication Sig Dispense Refill Last Dose amiodarone (Pacerone) 400 mg tablet Take 400 mg by mouth in the morning and at bedtime. aspirin 81 mg EC tablet Take 81 mg by mouth in the morning. atorvastatin (Lipitor) 40 mg tablet Take 40 mg by mouth at bedtime. busPIRone (Buspar) 10 mg tablet Take 10 mg by mouth twice a day. calcium acetate (Phoslo) 667 mg capsule Take 1,334 mg by mouth with breakfast, with lunch, and with evening meal. carvedilol (Coreg) 3.125 mg tablet Take 1 tablet (3.125 mg) by mouth with breakfast and with evening meal. (Patient not taking: Reported on 12/26/2022) 180 tablet 3 cholecalciferol (Vitamin D-3) 25 MCG (1000 units) tablet every 12 (twelve) hours. citalopram (CeleXA) 40 mg tablet Take 40 mg by mouth in the morning. bafiajkxraw-skjjvneia-nt lanter (Trelegy Ellipta) 200-62.5-25 mcg blister with device Inhale. furosemide (Lasix) 40 mg tablet Take 1.5 tablets by mouth in the morning and at bedtime. gabapentin (Neurontin) 100 mg capsule Take 100 mg by mouth twice a day. HumaLOG KwikPen Insulin 100 unit/mL injection HYDROcodone-acetaminophe n ([place]) 7.5-325 mg tablet Take 1 tablet by mouth if needed. midodrine (Proamatine) 5 mg tablet Take 1 tablet (5 mg) by mouth before breakfast, before lunch, and before evening meal. For low blood pressure, lightheadedness, dizziness (Patient taking differently: Take 5 mg by mouth if needed. For low blood pressure, lightheadedness, dizziness) 270 tablet 3 oxyCODONE-acetaminophen (Percocet) 5-325 mg tablet Take 1 tablet by mouth every 4 (four) hours if needed for severe pain (8-10 pain score). pantoprazole (ProtoNix) 40 mg EC tablet Take 40 mg by mouth before breakfast. Do not crush, chew, or split. pramipexole (Mirapex) 0.25 mg tablet Take 0.5 mg by mouth once daily as directed. pregabalin (Lyrica) 25 mg capsule Take 25 mg by mouth in the morning. 01/29/2023 valsa (more content not included)... Normal [facility] Letter (Out)on 01-30-2023 Letter (Out) [id number] Wilbert Wilson Jesusita 1945 F Date Provider Department Center 01/30/2023 [id number], GENERIC PRO*INIT None No family history on file Normal [facility] MAGNESIUMon 01-30-2023 Magnesium [Mass/Vol] 2.4 mg/dL Normal 1.9-2.7 [facility] Comment on above: Performed By: #### L [id number] ####[facility] ([facility]AKER)[address] [place] [address] NURSNOTEon 01-30-2023 NURSNOTE Patient reports gabapentin makes her tongue swell and increases confusion. States she now takes Lyrica 25mg once daily in the morning. Home med list updated to reflect this, gabapentin added to allergy list. Hospitalist notified of the above, awaiting clarification of orders. Safety maintained. [facility] NURSNOTE Patient reports abrasions to shins have been present since a fall that occurred in October. Heels and cracks on soles of feet are from my feet just splitting open. Patient reports pain to BLE, especially open areas almost constantly at 8-10/10 pain which impedes her ability to walk and complete ADLs independently. PRN [place] administered to complete wound care. Orders obtained for wound care consult. Pain issues relayed to hospitalist team. Safety maintained. Per patient opticel ag with silver to front of legs, silvedene cream to heels/bottom of feet, lac-hydrin lotion to BLE as per podiatry orders. Normal [facility] PHOSPHORUSon 01-30-2023 Magnesium [Mass/Vol] 3.3 mg/dL Normal 2.5-5.0 [facility] Comment on above: Performed By: #### L [id number] #### [facility] ([facility]) [address] [place] [address] POCT GLUCOSE METER UNSOLICIT ED RESULTSon 01-30-2023 Glucose [Mass/Vol] 140 mg/dL High 70-105 [facility] Comment on above: Order Comment: Waive d Testing in the ED is performed under the ED CLIA certificate #[id number]. Result Comment: [email or web address] Performed By: #### L [id number] ####[facility] ([facility])[address] [place] [address] Glucose [Mass/Vol] 154 mg/dL High 70-105 [facility] Comment on above: Order Comment: Waive d Testing in the ED is performed under the ED CLIA certificate #[id number]. Result Comment: eryn [email or web address] Performed By: #### L [id number] #### [facility] ([facility]) [address] [place] [address] Glucose [Mass/Vol] 139 mg/dL High 70-105 [facility] Comment on above: Order Comment: Waive d Testing in the ED is performed under the ED CLIA certificate #[id number]. Result Comment: eryn [email or web address] Performed By: #### L [id number] #### [facility] ([facility]) [address] [place] [address] Glucose [Mass/Vol] 244 mg/dL High 70-105 [facility] Comment on above: Order Comment: Waive d Testing in the ED is performed under the ED CLIA certificate #[id number]. Result Comment: ei lfu Critical Value Noted Performed By: #### L [id number] #### [facility] ([facility]) [address] [place] [address] APTTon 01-29-2023 ACTIVATED PARTIAL THROMBOPLASTIN TIME IN PPP BY COAGULATION ASSAY 39.1 Seconds High 25.0-35.0 [facility] Comment on above: Result Comment: Clin ical significance of the APTT is questionable in the presence of heparin. Performed By: #### L [id number] #### [facility] ([facility]) [address] [place] [address] B-TYPE NATRIURETIC PEPTIDEon 01-29-2023 Natriuretic peptide B (Bld) [Mass/Vol] 406 pg/mL High 0-100 [facility] Comment on above: Performed By: #### L [id number] #### [facility] ([facility] [address] [place] [address] BASIC METABOLIC PANELon 12-2 0 Anion gap [Moles/Vol] 15 mmol/L Normal 7-20 [facility] Comment on above: Performed By: #### L [id number] #### [facility] ([facility]) [address] [place] [address] Calcium [Mass/Vol] 9.8 mg/dL Normal 8.6-10.3 [facility] Comment on above: Performed By: #### L [id number] #### [facility] ([facility]) [address] [place] [address] Chloride [Moles/Vol] 92 mmol/L Low 98-107 [facility] Comment on above: Performed By: #### L [id number] #### [facility] ([facility]) [address] [place] [address] CO2 [Moles/Vol] 29 mmol/L Normal 21-31 [facility] Comment on above: Performed By: #### L [id number] #### [facility] ([facility]) [address] [place] [address] Creatinine [Mass/Vol] 2.60 mg/dL High 0.60-1.20 [facility] Comment on above: Performed By: #### L [id number] #### [facility] ([facility]) [address] [place] [address] GLOMERULAR FILTRATION RATE ML/MIN/1.73 SQ M.PREDICTED 18.7 mL/min/1.73m*2 Low >60.0 [facility] Comment on above: Result Comment: The [facility]???s estimated glomerular filtration rate (eGFR) will no longer include consideration of race in its calculation. The National Kidney Foundation???s eGFR Task Force developed new recommendations for the estimation of the glomerular filtration rate in the [place] They recommend immediate implementation of the new equation refit without the race variable in all laboratories because the calculation does not include race. In addition to not including race in the calculation and reporting, it included diversity in its development, and has acceptable performance characteristics and potential consequences that do not disproportionately affect any one group of individuals. Performed By: #### L [id number] #### [facility] ([facility]) [address] [address] Glucose [Mass/Vol] 210 mg/dL High 70-100 [facility] Comment on above: Performed By: #### L [id number] #### [facility] ([facility]) [address] [address] Potassium [Moles/Vol] 3.2 mmol/L Low 3.5-5.1 [facility] Comment on above: Performed By: #### L [id number] #### [facility] ([facility]) [address] [address] Sodium [Moles/Vol] 133 mmol/L Low 136-145 [facility] Comment on above: Performed By: #### L [id number] #### [facility] ([facility]) [address] [address] Urea nitrogen [Mass/Vol] 23 mg/dL Normal 7-25 [facility] Comment on above: Performed By: #### L [id number] #### [facility] ([facility]) [address] [address] UREA NITROGEN/CREATININE (MASS RATIO) IN SER/PLAS 8.8 Normal [facility] Comment on above: Performed By: #### L [id number] #### [facility] ([facility]) [address] [place] [address] CBC WITH AUTO DIFFERENTIALon 01-29-2023 Basophils (Bld) [#/Vol] 0.06 10*3/uL Normal 0.00-0.20 [facility] Comment on above: Performed By: #### L [id number] #### [facility] ([facility]) [address] [address] Basophils/100 WBC (Bld) 0.8 % Normal 0.0-1.0 [facility] Comment on above: Performed By: #### L [id number] #### [facility] ([facility]) [address] [place] [place] [address] Eosinophils (Bld) [#/Vol] 0.23 10*3/uL Normal 0.00-0.50 [facility] Comment on above: Performed By: #### L [id number] #### [facility] ([facility]) [address] [address] Eosinophils/100 WBC (Bld) 3.0 % Normal 0.0-6.0 [facility] Comment on above: Performed By: #### L [id number] #### [facility] ([facility]) [address] [address] Erythrocyte distribution width (RBC) [Ratio] 17.6 % High 11.5-15.0 [facility] Comment on above: Performed By: #### L [id number] #### [facility] ([facility]) [address] [address] ERYTHROCYTE MEAN CORPUSCULAR HEMOGLOBIN CONCENTRATION (G/DL) BY AUTOMATED 29.5 g/dL Low 32.0-35.0 [facility] Comment on above: Performed By: #### L [id number] #### [facility] ([facility]) [address] [place] [address] Hematocrit (Bld) [Volume fraction] 31.2 % Low 36.0-48.0 [facility] Comment on above: Performed By: #### L [id number] #### [facility] ([facility]) [address] [address] Hemoglobin (Bld) [Mass/Vol] 9.2 g/dL Low 12.0-15.0 [facility] Comment on above: Performed By: #### L [id number] #### [facility] ([facility]) [address] [address] Immature granulocytes (Bld) [#/Vol] 0.09 10*3/uL Normal 0.00-0.20 [facility] Comment on above: Performed By: #### L [id number] #### [facility] ([facility]) [address] [place] [address] Immature granulocytes/100 WBC (Bld) 1.2 % High 0.0-1.0 [facility] Comment on above: Performed By: #### L [id number] #### [facility] ([facility]) [address] [place] [address] Lymphocytes (Bld) [#/Vol] 1.24 10*3/uL Normal 1.20-4.00 [facility] Comment on above: Performed By: #### L [id number] #### [facility] ([facility]) [address] [place] [address] Lymphocytes/100 WBC (Bld) 16.1 % Low 20.0-45.0 [facility] Comment on above: Performed By: #### L [id number] #### [facility] ([facility]) [address] [facility] [place] [address] MCH (RBC) [Entitic mass] 26.9 pg Low 27.0-33.0 [facility] Comment on above: Performed By: #### L [id number] #### [facility] ([facility]) [address] [place] [address] MCV (RBC) [Entitic vol] 91.2 fL Normal 82.0-98.0 [facility] Comment on above: Performed By: #### L [id number] #### [facility] ([facility]) [address] [address] Monocytes (Bld) [#/Vol] 0.97 10*3/uL Normal 0.10-1.00 [facility] Comment on above: Performed By: #### L [id number] #### [facility] ([facility]) [address] [place] [address] Monocytes/100 WBC (Bld) 12.6 % High 5.0-12.0 [facility] Comment on above: Performed By: #### L [id number] #### [facility] ([facility]) [address] [place] [address] Neutrophils (Bld) [#/Vol] 5.11 10*3/uL Normal 1.60-7.60 [facility] Comment on above: Performed By: #### L [id number] #### [facility] ([facility]) [address] [place] [address] Neutrophils/100 WBC (Bld) 66.3 % Normal 40.0-72.0 [facility] Comment on above: Performed By: #### L [id number] #### [facility] ([facility]) [address] [place] [address] NRBC (PER 100 WBCS) BY AUTOMATED COUNT 0.0 % Normal 0 [facility] Comment on above: Performed By: #### L [id number] #### [facility] ([facility]) [address] [place] [address] PLATELETS (10*3/UL) IN BLOOD AUTOMATED COUNT 324 10*3/uL Normal 150-400 [facility] Comment on above: Performed By: #### L [id number] #### [facility] ([facility]) [address] [place] [address] RBC (Bld) [#/Vol] 3.42 10*6/uL Low 3.80-5.00 [facility] Comment on above: Performed By: #### L [id number] #### [facility] ([facility]) [address] [place] [address] WBC (Bld) [#/Vol] 7.70 10*3/uL Normal 4.00-10.60 [facility] Comment on above: Performed By: #### L [id number] #### [facility] ([facility]) [address] [place] [address] Documentationon 01-29-2023 Documentation [id number] Wilbert Wilson 1945 F Date Provider Department [place] 01/29/2023 Juliana-RYAN AHUJA [facility] No family history on file Normal [facility] EDPROVon 01-29-2023 EDPROV HPI Chief Complaint Patient presents with Shortness of Breath Pt presents to ED with c/o SOB and 2+ minutes if vtach per the [facility] FACT CHECKER at cardio clinic. Pt is being evaluated for defibrillator. 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 Patient presents for evaluation after being notified that she had an episode of ventricular tachycardia. She reports that she has a Holter monitor and has been evaluated for possible pacemaker placement, she was contacted by nurse practitioner from the dental office receptionist office today and told that she had an episode of ventricular tachycardia and should go to the emergency department. The patient reports that she did have an episode of shortness of breath today and felt more lightheaded than usual however denies any chest pain or syncopal events. She denies any recent fevers, nausea, vomiting, abdominal pain and changes to her bowel bladder habits. The patient has a history of COPD, diastolic heart failure, hypertension, type 1 diabetes and end-stage renal disease on dialysis. She reports that she is on a Friday, Friday and Friday dialysis schedule and has not missed any recent sessions. [place] Coma Scale Score: 15 Patient History Past Medical History: Diagnosis Date CAD (coronary artery disease) 09/23/2021 COPD (chronic obstructive pulmonary disease) ([facility]) 09/23/2021 Diastolic heart failure ([facility]) 09/23/2021 Dyspnea 09/23/2021 Edema 09/23/2021 Essential hypertension 09/23/2021 Hyperlipemia 09/23/2021 Kidney disease 09/23/2021 Orthopnea 09/23/2021 Primary malignant neoplasm ([facility]/HCC) 09/23/2021 Sleep apnea Type 1 diabetes ([facility]) 09/23/2021 Past Surgical History: Procedure Laterality Date CARDIAC CATHETERIZATION 12/07/2015 NECK SURGERY 06/03/2014 THORACENTESIS Right No family history on file. Social History Tobacco Use Smoking status: Never Smokeless tobacco: Never Substance Use Topics Alcohol use: Never Drug use: Never Review of Systems Review of Systems Respiratory: Positive for shortness of breath. Neurological: Positive for light-headedness. Physical Exam ED Triage Vitals [01/29/23 1919] Temp Heart Rate Resp BP 36.7 ???C (98.1 ???F) 70 19 (!) 118/40 SpO2 Temp Source Heart Rate Source Patient Position 97 % Oral -- -- BP Location FiO2 (%) -- -- Physical Exam Vitals and nursing note reviewed. Constitutional: General: She is not in acute distress. Appearance: She is well-developed and normal weight. She is ill-appearing. HENT: Head: Normocephalic and atraumatic. Eyes: Extraocular Movements: Extraocular movements intact. Conjunctiva/sclera: Conjunctivae normal. Pupils: Pupils are equal, round, and reactive to light. Cardiovascular: Rate and Rhythm: Normal rate and regular rhythm. Heart sounds: No murmur heard. Pulmonary: Effort: Pulmonary effort is normal. No respiratory distress. Breath sounds: Decreased breath sounds (Bilateral base) present. Chest: Chest wall: No tenderness. Abdominal: Palpations: Abdomen is soft. Tenderness: There is no abdominal tenderness. Musculoskeletal: General: No swelling. Normal range of motion. Cervical back: Neck supple. Right lower leg: No tenderness. No edema. Left lower leg: No tenderness. No edema. Skin: General: Skin is warm and dry. Capillary Refill: Capillary refill takes less than 2 seconds. Neurological: General: No focal deficit present. Mental Status: She is alert. Psychiatric: Mood and Affect: Mood normal. Procedures ED Course & MDM ED Course as of 01/29/232245Jan 29, 20232038 Discussed case with cardiology, they are aware of the patient. Plan at this time will be admit to the hospitalist. [SF] 2115 Patient is hypomagnesemic at 1.7, BNP is elevated at 406. [SF] 2116 CBC notable for anemia with a hemoglobin of 9.2, previous lab work showed 10.8 however this lab work is 3 years old. CBC is otherwise unremarkable. [SF] 2116 BMP notable for mild hypokalemia with a potassium of 3.2, creatinine is elevated at 2.6 however she is a dialysis patient. [SF] ED Course User Index [SF] Zeke Bruner Diagnoses as of 01/29/232245 Ventricular tachycardia (CMS/HCC) Medical Decision Making Risk Risk Details: 2022 Emergency Medicine Coding Guide from [email or web address] on 01/29/2023 All calculations should be rechecked by clinician prior to use RESULT SUMMARY: 5 Estimated Level of Service Problems: Moderate (4) Risk: High (5) Data: Extensive (5) NARRATIVE MDM: This patient's problem complexity is Moderate as patient: has a new undiagnosed problem with uncertain prognosis but that could be serious. This patient's risk is High due to: overall presentation requiring evaluation for a potentially High-risk process. This patient's data complexity is Extensive due to: -multiple tests ordered/reviewed -external notes reviewed -independent interpretation of imaging or EKG -discussion of management/testing w (more content not included)... Normal [facility] MAGNESIUMon 01-29-2023 Magnesium [Mass/Vol] 1.7 mg/dL Low 1.9-2.7 [facility] Comment on above: Performed By: #### L AB15 #### [facility] (BESchedulicity) [address] [place] [address] PROTIME-INRon 01-29-2023 INR IN PPP BY COAGULATION ASSAY 1.08 Normal 0.90-1.10 [facility] Comment on above: Result Comment: ACCC P RECOMMENDED INR FOR WARFARIN THERAPY CONDITION INR PROPHYLAXIS OF VENOUS THROMBOSIS 2-3 (HIGH-RISK SURGERY) TREATMENT OF VENOUS THROMBOSIS 2-3 TREATMENT OF PULMONARY EMBOLISM 2-3 PREVENTION OF SYSTEMIC EMBOLISM: 2-3 ACUTE MYOCARDIAL INFARCTION TISSUE HEART VALVES VALVULAR HEART DISEASE ATRIAL FIBRILLATION RECURRENT SYSTEMIC EMBOLISM MECHANICAL HEART VALVE 2.5-3.5 FROM: ORAL ANTICOAGULANTS. MECHANISM OF ACTION, CLINICAL EFFECTIVENESS, AND OPTIMAL THERAPEUTIC RANGE. CHEST 1995;108:231S-246S. Performed By: #### L AB320 ####[facility] (BEAKER)[address] [place] [address] PROTHROMBIN TIME (PT) IN PPP BY COAGULATION ASSAY 14.0 Seconds Normal 12.3-14.8 [facility] Comment on above: Performed By: #### L AB320 ####[facility] (BEAKER)[address] [place] [address] TROPONIN Ion 01-29-2023 Troponin I.cardiac [Mass/Vol] 0.03 ng/mL Normal 0.00-0.04 [facility] Comment on above: Performed By: #### L AB15 #### [facility] (BEAKER) [address] [place] [address] Office Visiton 01-06-2023 Follow-up visit [id number] Wilbert Wilson 1945 F Date Provider Department Center 01/06/2023 RYAN HATHAWAY CARD [facility] No family history on file Level of Service:58778 NC OFFICE/OUTPATIENT ESTABLISHED MOD MDM 30-39 MIN Normal [facility] Alanine aminotransferase [En zymatic activity/volume] in Serum or PlasmaOrdered By: Carlton Mtz on 01-02-2023 ALT [Catalytic activity/Vol] 27 U/L 752 [facility] Albumin [Mass/volume] in Ser um or Plasma by Bromocresol green (BCG) dye binding methoOrdered By: Carlton Mtz on 01-02-2023 Albumin BCG dye [Mass/Vol] 3.1 g/dL 3.5-5.7 [facility] Alkaline phosphatase [Enzyma tic activity/volume] in Serum or PlasmaOrdered By: Carlton Mtz on 01-02-2023 ALP [Catalytic activity/Vol] 170 U/L 34-104 [facility] Anisocytosis LM Ql (Bld)Orde red By: Carlton Mtz on 01-02-2023 Anisocytosis Ql (Bld) Slight [facility] Aspartate aminotransferase [ Enzymatic activity/volume] in Serum or PlasmaOrdered By: Carlton Mtz on 01-02-2023 AST [Catalytic activity/Vol] 18 U/L 13-39 [facility] Basophils Auto (Bld) [#/Vol] Ordered By: Carlton Mtz on 01-02-2023 Basophils (Bld) [#/Vol] 0.0 10*3/uL 0.0-0.2 [facility] Basophils/100 WBC Auto (Bld) Ordered By: Carlton Mtz on 01-02-2023 Basophils/100 WBC (Bld) 0.1 % . F [facility] Bilirubin.total [Mass/volume ] in Serum or PlasmaOrdered By: Carlton Mtz on 01-02-2023 Bilirubin [Mass/Vol] 0.3 mg/dL 0.3-1.0 [facility] Calcium [Mass/volume] in Ser um or PlasmaOrdered By: Carlton Mtz on 01-02-2023 Calcium [Mass/Vol] 9.3 mg/dL 8.6-10.3 [facility] Carbon dioxide, total [Moles /volume] in Serum or PlasmaOrdered By: Carlton Mtz on 01-02-2023 CO2 [Moles/Vol] 29.5 mmol/L 21.0-31.0 [facility] Chloride [Moles/volume] in S steffanie or PlasmaOrdered By: Carlton Mtz on 01-02-2023 Chloride [Moles/Vol] 93 mmol/L 98-107 [facility] Comprehensive Metabolic Pane eliseo 01-02-2023 Albumin [Mass/Vol] 3.1 g/dL Low 3.5-5.7 [facility] Comment on above: Performed By: #### S CAN CBC, CMP ####[facility] [id number] [place] [id number] [facility] Albumin/Globulin [Mass ratio] 1.0 {ratio} Normal [facility] Comment on above: Performed By: #### S CAN CBC, CMP ####[facility] [address] [place] [address] [facility] ALP [Catalytic activity/Vol] 170 U/L High 34-104 [facility] Comment on above: Performed By: #### S CAN CBC, CMP ####[facility] [address] [place] [address] [facility] ALT [Catalytic activity/Vol] 27 U/L Normal 7-52 [facility] Comment on above: Performed By: #### S CAN CBC, CMP ####[facility] [place] [address] [facility] Anion gap [Moles/Vol] 13.2 mmol/L Normal 6.0-15.0 [facility] Comment on above: Performed By: #### S CAN CBC, CMP ####[facility] [address] [place] [address] [facility] AST [Catalytic activity/Vol] 18 U/L Normal 13-39 [facility] Comment on above: Performed By: #### S CAN CBC, CMP ####[facility] [address] [place] [address] [facility] Bilirubin [Mass/Vol] 0.3 mg/dL Normal 0.3-1.0 [facility] Comment on above: Performed By: #### S CAN CBC, CMP ####[place] [address] [place] [address] [facility] Calcium [Mass/Vol] 9.3 mg/dL Normal 8.6-10.3 [facility] Comment on above: Performed By: #### S CAN CBC, CMP ####[address] [place] [address] [facility] Chloride [Moles/Vol] 93 mmol/L Low 98-107 [facility] Comment on above: Performed By: #### S CAN CBC, CMP ####[facility] [address] [place] [address] [facility] CO2 [Moles/Vol] 29.5 mmol/L Normal 21.0-31.0 [facility] Comment on above: Performed By: #### S CAN CBC, CMP ####[facility] [id number] [place] [address] [facility] Creatinine [Mass/Vol] 2.93 mg/dL Significan t change up 0.60-1.20 [facility] Comment on above: Performed By: #### S CAN CBC, CMP ####[facility] [address] [place] [address] [facility] Creatinine Clr Calc Pharmacy 14.33 Normal [facility] Comment on above: Result Comment: PERF ORMED BY:[place] [address] [address] [place], [place] [phone] MEDICAL MAJOR LARSON M.D. Performed By: #### S CAN CBC, CMP ####[place] [address] [place] [address] [facility] GFR/1.73 sq M.predicted MDRD (S/P/Bld) [Vol rate/Area] 16.172 mL/min/{1.73_m2} Normal [facility] Comment on above: Performed By: #### S CAN CBC, CMP ####[place] [address] [place] [id number] [facility] Globulin (S) [Mass/Vol] 3.2 g/dL Normal [facility] Comment on above: Performed By: #### S CAN CBC, CMP ####[place] [id number] [facility] Glucose [Mass/Vol] 209 mg/dL High 70-100 [facility] Comment on above: Result Comment: [place] Glucose Reference Range is dependent on time and content of last meal. Glucose of more than 200 mg/dL in a nonstressed, ambulatory subject supports the diagnosis of Diabetes Mellitus. ADA recommended reference range Performed By: #### S CAN CBC, CMP ####[address] [address] [facility] Potassium [Moles/Vol] 3.7 mmol/L Normal 3.5-5.1 [facility] Comment on above: Performed By: #### S CAN CBC, CMP ####[place] [id number] [facility] Protein [Mass/Vol] 6.3 g/dL Low 6.4-8.9 [facility] Comment on above: Performed By: #### S CAN CBC, CMP ####[place] [id number] [facility] Sodium [Moles/Vol] 132 mmol/L Low 136-145 [facility] Comment on above: Performed By: #### S CAN CBC, CMP ####[facility] [address] [place] [id number] [facility] Urea nitrogen [Mass/Vol] 37 mg/dL High 7-25 [facility] Comment on above: Performed By: #### S CAN CBC, CMP ####[facility] [id number] [place] [id number] [facility] Creatinine [Mass/volume] in Serum or PlasmaOrdered By: Carlton Mtz on 01-02-2023 Creatinine [Mass/Vol] 2.93 mg/dL 0.60-1.20 [facility] Comment on above: Delta: 4.45 on 01/01 Eosinophils Auto (Bld) [#/Vo l]Ordered By: Carlton Mtz on 01-02-2023 Eosinophils (Bld) [#/Vol] 0.0 10*3/uL 0.0-0.45 [facility] Eosinophils/100 WBC Auto (Bl d)Ordered By: Carlton Mtz on 01-02-2023 Eosinophils/100 WBC (Bld) 0.0 % . [facility] Erythrocyte distribution wid th Auto (RBC) [Ratio]Ordered By: Carlton Mtz on 01-02-2023 Erythrocyte distribution width (RBC) [Ratio] 17.2 % 11.9-15.3 [facility] Globulin Calc (S) [Mass/Vol] Ordered By: Carlton Mtz on 01-02-2023 Globulin (S) [Mass/Vol] 3.2 g/dL F [facility] Glucose Glucometer (BldC) [M ass/Vol]Ordered By: Tatiana Loya on 01-02-2023 Glucose [Mass/Vol] 290 mg/dL [facility] Comment on above: Random Glucose Refer ence Range is dependent on time and content of last meal. Glucose of more than 200 mg/dL in a nonstressed, ambulatory subject supports the diagnosis of Diabetes Mellitus. Glucose Poct Glucometerson 1 03-04-2022 Commemt1 Glu2: Cleaned Meter Normal [facility] Comment on above: Result Comment: PERF ORMED BY:[facility] [place], [place] [phone] MEDICAL DIRECTORRAMEZ LARSON M.D. Performed By: #### G LULS ####Point of Care testing, Glucose [Mass/Vol] 290 mg/dL Normal [facility] Comment on above: Result Comment: [place] om Glucose Reference Range is dependent on time and content of last meal. Glucose of more than 200 mg/dL in a nonstressed, ambulatory subject supports the diagnosis of Diabetes Mellitus. Performed By: #### G LULS ####Point of Care testing, Commemt1 [facility] Comment on above: Result Comment: Glu2 : WILL NOTIFY DR/OLIVERERFORMED BY:[place] [address] [place]iaJ[place], [place] [phone] MEDICAL DIRECTORRAMEZ LARSON M.D. Performed By: #### G LULS ####Point of Care testing, Glucose [Mass/Vol] 482 mg/dL Off scale [facility] Comment on above: Result Comment: [place] om Glucose Reference Range is dependent on time and content of last meal. Glucose of more than 200 mg/dL in a nonstressed, ambulatory subject supports the diagnosis of Diabetes Mellitus. Performed By: #### G LULS ####Point of Care testing, Glucose [Mass/volume] in Ser um or PlasmaOrdered By: Carlton Mtz on 01-02-2023 Glucose [Mass/Vol] 209 mg/dL 70-100 [facility] Comment on above: ADA recommended refe rence rangeRandom Glucose Reference Range is dependent on time and content of last meal. Glucose of more than 200 mg/dL in a nonstressed, ambulatory subject supports the diagnosis of Diabetes Mellitus. Hematocrit Auto (Bld) [Volum e fraction]Ordered By: Carlton Mtz on 01-02-2023 Hematocrit (Bld) [Volume fraction] 30.2 % 34.0-46.4 [facility] Hemoglobin [Mass/volume] in BloodOrdered By: Carlton Mtz on 01-02-2023 Hemoglobin (Bld) [Mass/Vol] 9.5 g/dL 11.8-15.4 [facility] Hypochromia LM Ql (Bld)Order ed By: Carlton Mtz on 01-02-2023 Hypochromia Ql (Bld) Slight [facility] Leukocytes [#/volume] correc tr for nucleated erythrocytes in Blood by Automated counOrdered By: Carlton Mtz on 01-02-2023 WBC corrected for nucl RBC Auto (Bld) [#/Vol] 10.5 10*3/uL 3.8-11.6 [facility] Lymphocytes Auto (Bld) [#/Vo l]Ordered By: Carlton Mtz on 01-02-2023 Lymphocytes (Bld) [#/Vol] 1.0 10*3/uL 1.00-4.8 [facility] Lymphocytes/100 WBC Auto (Bl d)Ordered By: Carlton Mtz on 01-02-2023 Lymphocytes/100 WBC (Bld) 9.7 % . [facility] MCH Auto (RBC) [Entitic mass ]Ordered By: Carlton Mtz on 01-02-2023 MCH (RBC) [Entitic mass] 28.2 pg 24.7-34.3 [facility] MCHC Auto (RBC) [Mass/Vol]Or dered By: Carlton Mtz on 01-02-2023 MCHC (RBC) [Mass/Vol] 31.5 g/dL 32.0-35.0 [facility] MCV Auto (RBC) [Entitic vol] Ordered By: Carlton Mtz on 01-02-2023 MCV (RBC) [Entitic vol] 89.5 fL 80-100 [facility] Monocytes Auto (Bld) [#/Vol] Ordered By: Carlton Mtz on 01-02-2023 Monocytes (Bld) [#/Vol] 1.0 10*3/uL 0.0-0.8 [facility] Monocytes/100 WBC Auto (Bld) Ordered By: Carlton Mtz on 01-02-2023 Monocytes/100 WBC (Bld) 9.4 % . F [facility] Neutrophils Auto (Bld) [#/Vo l]Ordered By: Carlton Mtz on 01-02-2023 Neutrophils (Bld) [#/Vol] 8.5 10*3/uL 1.8-7.7 [facility] Neutrophils/100 WBC Auto (Bl d)Ordered By: Carlton Mtz on 01-02-2023 Neutrophils/100 WBC (Bld) 80.8 % . [facility] No Panel InformationOrdered By: Tatiana Loya on 01-02-2023 Bedside Glucose Comment Glu2: cleaned meter [facility] No Panel InformationOrdered By: Carlton Mtz on 01-02-2023 Estimated GFR (CKD-EPI) 16.172 mL/Min [facility] Pharmacy Creatinine Clearance (Chem 14.33 [facility] Nucleated erythrocytes [Pres ence] in Blood by Automated countOrdered By: Carlton Mtz on 01-02-2023 Nucleated RBC Auto Ql (Bld) 0.0 /100{WBC} 0-0.5 [facility] Platelet adequacy [Presence] in Blood by Light microscopyOrdered By: Carlton Mtz on 01-02-2023 Platelets LM Ql (Bld) Normal Normal [facility] Platelet mean volume Auto (B ld) [Entitic vol]Ordered By: Carlton Mtz on 01-02-2023 Platelet mean volume (Bld) [Entitic vol] 7.1 fL 6.3-10.7 [facility] Platelet morphology finding [Identifier] in BloodOrdered By: Carlton Mtz on 01-02-2023 Platelet morphology finding Nom (Bld) Normal Normal [facility] Platelets Auto (Bld) [#/Vol] Ordered By: Carlton Mtz on 01-02-2023 Platelets (Bld) [#/Vol] 424 10*3/uL 150-450 [facility] Potassium [Moles/volume] in Serum or PlasmaOrdered By: Carlton Duncanoom on 01-02-2023 Potassium [Moles/Vol] 3.7 mmol/L 3.5-5.1 [facility] Protein [Mass/volume] in Ser um or PlasmaOrdered By: Carlton Mtz on 01-02-2023 Protein [Mass/Vol] 6.3 g/dL 6.4-8.9 [facility] RBC Auto (Bld) [#/Vol]Ordere d By: Carlton Smith on 01-02-2023 RBC (Bld) [#/Vol] 3.37 10*6/uL 3.60-5.00 [facility] RBC morphologyOrdered By: Ted dewayne Smith on 01-02-2023 RBC morphology finding Nom (Bld) N/A [facility] Scan and CBCon 01-02-2023 Anisocytosis Ql (Bld) Slight Normal [facility] Comment on above: Performed By: #### S CAN CBC, CMP ####[address] Basophils (Bld) [#/Vol] 0.0 10*3/uL Normal 0.0-0.2 [facility] Comment on above: Result Comment: PERF ORMED BY:[address] [place], [place] [phone] MEDICAL DIRECTORRAMEZ LARSON M.D. Performed By: #### S CAN CBC, CMP ####[place] [id number] [facility] Basophils/100 WBC (Bld) 0.1 % Normal . F [facility] Comment on above: Performed By: #### S CAN CBC, CMP ####[place] [id number] [place] Eosinophils (Bld) [#/Vol] 0.0 10*3/uL Normal 0.0-0.45 [facility] Comment on above: Performed By: #### S CAN CBC, CMP ####[place] [id number] [place] Eosinophils/100 WBC (Bld) 0.0 % Normal . [facility] Comment on above: Performed By: #### S CAN CBC, CMP ####[address] Erythrocyte distribution width (RBC) [Ratio] 17.2 % High 11.9-15.3 [facility] Comment on above: Performed By: #### S CAN CBC, CMP ####[address] Hematocrit (Bld) [Volume fraction] 30.2 % Low 34.0-46.4 [facility] Comment on above: Performed By: #### S CAN CBC, CMP ####[address] Hemoglobin (Bld) [Mass/Vol] 9.5 g/dL Low 11.8-15.4 [facility] Comment on above: Performed By: #### S CAN CBC, CMP ####[address] Hypochromasia Slight Normal [facility] Comment on above: Performed By: #### S CAN CBC, CMP ####[address] Lymphocytes (Bld) [#/Vol] 1.0 10*3/uL Normal 1.00-4.8 [facility] Comment on above: Performed By: #### S CAN CBC, CMP ####[address] Lymphocytes/100 WBC (Bld) 9.7 % Normal . [facility] Comment on above: Performed By: #### S CAN CBC, CMP ####[address] MCH (RBC) [Entitic mass] 28.2 pg Normal 24.7-34.3 [facility] Comment on above: Performed By: #### S CAN CBC, CMP ####[address] MCV (RBC) [Entitic vol] 89.5 fL Normal 80-100 [facility] Comment on above: Performed By: #### S CAN CBC, CMP ####[address] Mean Corpuscular HGB Conc 31.5 g/dL Low 32.0-35.0 [facility] Comment on above: Performed By: #### S CAN CBC, CMP ####[address] Monocytes (Bld) [#/Vol] 1.0 10*3/uL High 0.0-0.8 [facility] Comment on above: Performed By: #### S CAN CBC, CMP ####[address] Monocytes/100 WBC (Bld) 9.4 % Normal . F [facility] Comment on above: Performed By: #### S CAN CBC, CMP ####[address] Neutrophils (Bld) [#/Vol] 8.5 10*3/uL High 1.8-7.7 [facility] Comment on above: Performed By: #### S CAN CBC, CMP ####[address] Neutrophils/100 WBC (Bld) 80.8 % Normal . [facility] Comment on above: Performed By: #### S CAN CBC, CMP ####[address] NRBC% 0.0 /100{WBC} Normal 0-0.5 [facility] Comment on above: Performed By: #### S CAN CBC, CMP ####[address] Platelet Estimate Normal Normal Normal [facility] Comment on above: Performed By: #### S CAN CBC, CMP ####[address] Platelet mean volume (Bld) [Entitic vol] 7.1 fL Normal 6.3-10.7 [facility] Comment on above: Performed By: #### S CAN CBC, CMP ####[place] [id number] [place] [id number] [facility] Platelet Morphology Normal Normal Normal [facility] Comment on above: Result Comment: PERF ORMED BY:[address] [place], [place] [phone] MEDICAL MAJOR LARSON M.D. Performed By: #### S CAN CBC, CMP ####[address] [place] [address] [facility] Platelets (Bld) [#/Vol] 424 10*3/uL Normal 150-450 [facility] Comment on above: Performed By: #### S CAN CBC, CMP ####[place] [address] [place] [address] [facility] RBC (Bld) [#/Vol] 3.37 10*6/uL Low 3.60-5.00 [facility] Comment on above: Performed By: #### S CAN CBC, CMP ####[address] [address] [facility] WBC (Bld) [#/Vol] 10.5 10*3/uL Normal 3.8-11.6 [facility] Comment on above: Performed By: #### S CAN CBC, CMP ####[place] [id number] [facility] Serum or plasma albumin/glob ulin mass ratioOrdered By: Carlton Mtz on 01-02-2023 Albumin/Globulin [Mass ratio] 1.0 {ratio} [facility] Serum or plasma anion gap de terminationOrdered By: Carlton Mtz on 01-02-2023 Anion gap [Moles/Vol] 13.2 mmol/L 6.0-15.0 [facility] Sodium [Moles/volume] in Ser um or PlasmaOrdered By: Carlton Mtz on 01-02-2023 Sodium [Moles/Vol] 132 mmol/L 136-145 [facility] Urea nitrogen [Mass/volume] in Serum or PlasmaOrdered By: Carlton Mtz on 01-02-2023 Urea nitrogen [Mass/Vol] 37 mg/dL 09-03 [facility] WBC Auto (Bld) [#/Vol]Ordere d By: Carlton Smith on 01-02-2023 WBC (Bld) [#/Vol] 10.5 10*3/uL 3.8-11.6 [facility] Complete Blood Count Auto Di ffon 01-01-2023 Basophils (Bld) [#/Vol] 0.0 10*3/uL Normal 0.0-0.2 [facility] Comment on above: Result Comment: PERF ORMED BY:[address] [place], [place] [phone] MEDICAL DIRECTORRAMEZ LARSON M.D. Performed By: #### C MP, CBC ####[address] Basophils/100 WBC (Bld) 0.1 % Normal . [facility] Comment on above: Performed By: #### C MP, CBC ####[address] Eosinophils (Bld) [#/Vol] 0.0 10*3/uL Normal 0.0-0.45 [facility] Comment on above: Performed By: #### C MP, CBC ####[address] Eosinophils/100 WBC (Bld) 0.0 % Normal . [facility] Comment on above: Performed By: #### C MP, CBC ####[address] Erythrocyte distribution width (RBC) [Ratio] 17.3 % High 11.9-15.3 [facility] Comment on above: Performed By: #### C MP, CBC ####[address] Hematocrit (Bld) [Volume fraction] 31.5 % Low 34.0-46.4 [facility] Comment on above: Performed By: #### C MP, CBC ####[address] Hemoglobin (Bld) [Mass/Vol] 9.8 g/dL Low 11.8-15.4 [facility] Comment on above: Performed By: #### C MP, CBC ####[address] Lymphocytes (Bld) [#/Vol] 0.7 10*3/uL Low 1.00-4.8 [facility] Comment on above: Performed By: #### C MP, CBC ####[address] Lymphocytes/100 WBC (Bld) 6.5 % Normal . [facility] Comment on above: Performed By: #### C MP, CBC ####[address] MCH (RBC) [Entitic mass] 27.8 pg Normal 24.7-34.3 [facility] Comment on above: Performed By: #### C MP, CBC ####[address] MCV (RBC) [Entitic vol] 89.1 fL Normal 80-100 F [facility] Comment on above: Performed By: #### C MP, CBC ####[address] Mean Corpuscular HGB Conc 31.2 g/dL Low 32.0-35.0 [facility] Comment on above: Performed By: #### C MP, CBC ####[address] Monocytes (Bld) [#/Vol] 0.6 10*3/uL Normal 0.0-0.8 [facility] Comment on above: Performed By: #### C MP, CBC ####[address] Monocytes/100 WBC (Bld) 5.9 % Normal . [facility] Comment on above: Performed By: #### C MP, CBC ####[address] Neutrophils (Bld) [#/Vol] 8.8 10*3/uL High 1.8-7.7 [facility] Comment on above: Performed By: #### C MP, CBC ####[place] [id number] [facility] Neutrophils/100 WBC (Bld) 87.5 % Normal . [facility] Comment on above: Performed By: #### C MP, CBC ####[address] NRBC% 0.0 /100{WBC} Normal 0-0.5 [facility] Comment on above: Performed By: #### C MP, CBC ####[address] Platelet mean volume (Bld) [Entitic vol] 7.5 fL Normal 6.3-10.7 [facility] Comment on above: Performed By: #### C MP, CBC ####[place] [id number] [facility] Platelets (Bld) [#/Vol] 443 10*3/uL Normal 150-450 [facility] Comment on above: Performed By: #### C MP, CBC ####[address] RBC (Bld) [#/Vol] 3.53 10*6/uL Low 3.60-5.00 [facility] Comment on above: Performed By: #### C MP, CBC ####[address] WBC (Bld) [#/Vol] 10.1 10*3/uL Normal 3.8-11.6 [facility] Comment on above: Performed By: #### C MP, CBC ####[place] [id number] [facility] Comprehensive Metabolic Pane eliseo 01-01-2023 Albumin [Mass/Vol] 3.2 g/dL Low 3.5-5.7 [facility] Comment on above: Performed By: #### C MP, CBC ####[place] [id number] [facility] Albumin/Globulin [Mass ratio] 0.9 {ratio} Normal [facility] Comment on above: Performed By: #### C MP, CBC ####[place] [id number] [facility] ALP [Catalytic activity/Vol] 167 U/L High 34-104 [facility] Comment on above: Performed By: #### C MP, CBC ####[place] [id number] [facility] ALT [Catalytic activity/Vol] 33 U/L Normal 7-52 [facility] Comment on above: Performed By: #### C MP, CBC ####[place] [id number] [facility] Anion gap [Moles/Vol] 15.6 mmol/L High 6.0-15.0 [facility] Comment on above: Performed By: #### C MP, CBC ####[place] [id number] [facility] AST [Catalytic activity/Vol] 27 U/L Normal 13-39 [facility] Comment on above: Performed By: #### C MP, CBC ####[place] [id number] [facility] Bilirubin [Mass/Vol] 0.3 mg/dL Normal 0.3-1.0 [facility] Comment on above: Performed By: #### C MP, CBC ####[place] [id number] [facility] Calcium [Mass/Vol] 9.8 mg/dL Normal 8.6-10.3 [facility] Comment on above: Performed By: #### C MP, CBC ####[place] [id number] [facility] Chloride [Moles/Vol] 91 mmol/L Low 98-107 [facility] Comment on above: Performed By: #### C MP, CBC ####[place] [id number] [facility] CO2 [Moles/Vol] 26.4 mmol/L Normal 21.0-31.0 [facility] Comment on above: Performed By: #### C MP, CBC ####[place] [address] [place] [id number] [facility] Creatinine [Mass/Vol] 4.45 mg/dL Significan t change up 0.60-1.20 [facility] Comment on above: Performed By: #### C MP, CBC ####[address] Creatinine Clr Calc Pharmacy 9.43 Normal [facility] Comment on above: Result Comment: PERF ORMED BY:[address] [place], [place] [phone] MEDICAL MAJOR LARSON M.D. Performed By: #### C MP, CBC ####[place] [id number] [facility] GFR/1.73 sq M.predicted MDRD (S/P/Bld) [Vol rate/Area] 9.794 mL/min/{1.73_m2} Normal [facility] Comment on above: Performed By: #### C MP, CBC ####[place] [id number] [facility] Globulin (S) [Mass/Vol] 3.6 g/dL Normal [facility] Comment on above: Performed By: #### C MP, CBC ####[place] [id number] [facility] Glucose [Mass/Vol] 227 mg/dL High 70-100 [facility] Comment on above: Result Comment: [place] Glucose Reference Range is dependent on time and content of last meal. Glucose of more than 200 mg/dL in a nonstressed, ambulatory subject supports the diagnosis of Diabetes Mellitus. ADA recommended reference range Performed By: #### C MP, CBC ####[facility] [id number] [place] [address] [facility] Potassium [Moles/Vol] 4.0 mmol/L Normal 3.5-5.1 [facility] Comment on above: Performed By: #### C MP, CBC ####[facility] [address] [place] [address] [facility] Protein [Mass/Vol] 6.8 g/dL Normal 6.4-8.9 [facility] Comment on above: Performed By: #### C MP, CBC ####[facility] [id number] [place] [address] [facility] Sodium [Moles/Vol] 129 mmol/L Low 136-145 [facility] Comment on above: Performed By: #### C MP, CBC ####[facility] [address] [place] [address] [facility] Urea nitrogen [Mass/Vol] 57 mg/dL High 7-25 [facility] Comment on above: Performed By: #### C MP, CBC ####[facility] [id number] [place] [address] [facility] Glucose Poct Glucometerson 03-03-2022 Glucose [Mass/Vol] 380 mg/dL Normal [facility] Comment on above: Result Comment: [facility] Glucose Reference Range is dependent on time and content of last meal. Glucose of more than 200 mg/dL in a nonstressed, ambulatory subject supports the diagnosis of Diabetes Mellitus.PERFORMED BY:[place] [address] [place], [place] [phone] MEDICAL DIRECTORRAMEZ LARSON M.D. Performed By: #### G LULS ####Point of Care testing, Glucose [Mass/Vol] 165 mg/dL Normal [facility] Comment on above: Result Comment: [facility] Glucose Reference Range is dependent on time and content of last meal. Glucose of more than 200 mg/dL in a nonstressed, ambulatory subject supports the diagnosis of Diabetes Mellitus.PERFORMED BY:[place] [address] [place] [place], [place] [phone] MEDICAL DIRECTORRAMEZ LARSON M.D. Performed By: #### G LULS ####Point of Care testing, Glucose [Mass/Vol] 193 mg/dL Normal [facility] Comment on above: Result Comment: [facility] Glucose Reference Range is dependent on time and content of last meal. Glucose of more than 200 mg/dL in a nonstressed, ambulatory subject supports the diagnosis of Diabetes Mellitus.PERFORMED BY:[place] [place], [place] [id number] MEDICAL DIRECTORRAMEZ LARSON M.D. Performed By: #### G LULS ####Point of Care testing, Complete Blood Count Auto Di ffon 12-31-2022 Basophils (Bld) [#/Vol] 0.0 10*3/uL Normal 0.0-0.2 [facility] Comment on above: Result Comment: PERF ORMED BY:[place] [address] [place], [place] [phone] MEDICAL DIRECTORRAMEZ LARSON M.D. Performed By: #### C BC, CMP ####[address] [address] [facility] Basophils/100 WBC (Bld) 0.1 % Normal . [facility] Comment on above: Performed By: #### C BC, CMP ####[address] [address] [facility] Eosinophils (Bld) [#/Vol] 0.0 10*3/uL Normal 0.0-0.45 [facility] Comment on above: Performed By: #### C BC, CMP ####[address] [address] [place] Eosinophils/100 WBC (Bld) 0.0 % Normal . [facility] Comment on above: Performed By: #### C BC, CMP ####[place] [id number] [facility] Erythrocyte distribution width (RBC) [Ratio] 17.7 % High 11.9-15.3 [facility] Comment on above: Performed By: #### C REBECCA, CMP ####[address] [address] [facility] Hematocrit (Bld) [Volume fraction] 30.9 % Low 34.0-46.4 [facility] Comment on above: Performed By: #### C REBECCA, CMP ####[address] [address] [facility] Hemoglobin (Bld) [Mass/Vol] 9.7 g/dL Low 11.8-15.4 [facility] Comment on above: Performed By: #### C REBECCA, CMP ####[place] [id number] [facility] Lymphocytes (Bld) [#/Vol] 0.3 10*3/uL Low 1.00-4.8 [facility] Comment on above: Performed By: #### C REBECCA, CMP ####[place] [id number] [facility] Lymphocytes/100 WBC (Bld) 4.3 % Normal . [facility] Comment on above: Performed By: #### C REBECCA, CMP ####[address] [address] [facility] MCH (RBC) [Entitic mass] 28.1 pg Normal 24.7-34.3 [facility] Comment on above: Performed By: #### C REBECCA, CMP ####[place] [id number] [facility] MCV (RBC) [Entitic vol] 89.8 fL Normal 80-100 F [facility] Comment on above: Performed By: #### C REBECCA, CMP ####[place] [address] [facility] Mean Corpuscular HGB Conc 31.3 g/dL Low 32.0-35.0 [facility] Comment on above: Performed By: #### C BC, CMP ####[place] [id number] [facility] Monocytes (Bld) [#/Vol] 0.3 10*3/uL Normal 0.0-0.8 [facility] Comment on above: Performed By: #### C REBECCA, CMP ####[facility] [id number] [place] [address] [place] Monocytes/100 WBC (Bld) 4.1 % Normal . F [facility] Comment on above: Performed By: #### C BC, CMP ####[facility] [place] [address] [facility] Neutrophils (Bld) [#/Vol] 6.7 10*3/uL Normal 1.8-7.7 [facility] Comment on above: Performed By: #### C REBECCA, CMP ####[place] [address] [place] [address] [facility] Neutrophils/100 WBC (Bld) 91.5 % Normal . [facility] Comment on above: Performed By: #### C REBECCA, CMP ####[place] [address] [place] [address] [facility] NRBC% 0.1 /100{WBC} Normal 0-0.5 [facility] Comment on above: Performed By: #### C REBECCA, CMP ####[place] [address] [place] [address] [facility] Platelet mean volume (Bld) [Entitic vol] 7.8 fL Normal 6.3-10.7 [facility] Comment on above: Performed By: #### C REBECCA, CMP ####[address] [address] [place] [address] [place] Platelets (Bld) [#/Vol] 409 10*3/uL Normal 150-450 [facility] Comment on above: Performed By: #### C REBECCA, CMP ####[facility] [place] [address] [place] RBC (Bld) [#/Vol] 3.44 10*6/uL Low 3.60-5.00 [facility] Comment on above: Performed By: #### C BC, CMP ####[facility] [place] [address] [place] WBC (Bld) [#/Vol] 7.3 10*3/uL Normal 3.8-11.6 [facility] Comment on above: Performed By: #### C BC, CMP ####[place] [address] [place] [address] [facility] Comprehensive Metabolic Pane eliseo 12-31-2022 Albumin [Mass/Vol] 3.2 g/dL Low 3.5-5.7 [facility] Comment on above: Performed By: #### C BC, CMP ####[address] [address] [facility] Albumin/Globulin [Mass ratio] 0.9 {ratio} Normal [facility] Comment on above: Performed By: #### C BC, CMP ####[address] [address] [facility] ALP [Catalytic activity/Vol] 157 U/L High 34-104 [facility] Comment on above: Performed By: #### C BC, CMP ####[address] [address] [facility] ALT [Catalytic activity/Vol] 23 U/L Normal 7-52 [facility] Comment on above: Performed By: #### C BC, CMP ####[address] [address] [facility] Anion gap [Moles/Vol] 15.3 mmol/L High 6.0-15.0 [facility] Comment on above: Performed By: #### C BC, CMP ####[address] [address] [facility] AST [Catalytic activity/Vol] 21 U/L Normal 13-39 [facility] Comment on above: Performed By: #### C BC, CMP ####[address] [address] [facility] Bilirubin [Mass/Vol] 0.4 mg/dL Normal 0.3-1.0 [facility] Comment on above: Performed By: #### C BC, CMP ####[address] [address] [facility] Calcium [Mass/Vol] 9.7 mg/dL Normal 8.6-10.3 [facility] Comment on above: Performed By: #### C BC, CMP ####[address] [place] [address] [facility] Chloride [Moles/Vol] 93 mmol/L Low 98-107 [facility] Comment on above: Performed By: #### C BC, CMP ####[address] [address] [place] [address] [facility] CO2 [Moles/Vol] 27.5 mmol/L Normal 21.0-31.0 [facility] Comment on above: Performed By: #### C BC, CMP ####[address] [place] [address] [facility] Creatinine [Mass/Vol] 3.40 mg/dL Significan t change up 0.60-1.20 [facility] Comment on above: Performed By: #### C BC, CMP ####[address] [place] [address] [facility] Creatinine Clr Calc Pharmacy 12.35 Normal [facility] Comment on above: Result Comment: PERF ORMED BY:[address] [place], [place] [phone] MEDICAL MAJOR LARSON M.D. Performed By: #### C BC, CMP ####[address] [place] [address] [facility] GFR/1.73 sq M.predicted MDRD (S/P/Bld) [Vol rate/Area] 13.528 mL/min/{1.73_m2} Normal [facility] Comment on above: Performed By: #### C BC, CMP ####[address] [place] [address] [facility] Globulin (S) [Mass/Vol] 3.7 g/dL Normal [facility] Comment on above: Performed By: #### C BC, CMP ####[facility] [place] [address] [facility] Glucose [Mass/Vol] 255 mg/dL Significant change up 70-100 [facility] Comment on above: Result Comment: [place] Glucose Reference Range is dependent on time and content of last meal. Glucose of more than 200 mg/dL in a nonstressed, ambulatory subject supports the diagnosis of Diabetes Mellitus. ADA recommended reference range Performed By: #### C BC, CMP ####[facility] [place] [address] [facility] Potassium [Moles/Vol] 3.8 mmol/L Normal 3.5-5.1 [facility] Comment on above: Performed By: #### C BC, CMP ####[facility] [place] [address] [facility] Protein [Mass/Vol] 6.9 g/dL Normal 6.4-8.9 [facility] Comment on above: Performed By: #### C BC, CMP ####[address] [address] [facility] Sodium [Moles/Vol] 132 mmol/L Significant change down 136-145 [facility] Comment on above: Performed By: #### C BC, CMP ####[facility] [place] [address] [facility] Urea nitrogen [Mass/Vol] 36 mg/dL Significant change up 7-25 [facility] Comment on above: Performed By: #### C BC, CMP ####[facility] [place] [address] [facility] Glucose Poct Glucometerson 1 03-02-2022 Commemt1 Normal [facility] Comment on above: Result Comment: Glu2 : WILL NOTIFY DR/OLIVERERFORMED BY:[address] [place], [place] [phone] MEDICAL DIRECTORRAMEZ LARSON M.D. Performed By: #### G LULS ####Point of Care testing, Glucose [Mass/Vol] 406 mg/dL Off scale [facility] Comment on above: Result Comment: [facility] Glucose Reference Range is dependent on time and content of last meal. Glucose of more than 200 mg/dL in a nonstressed, ambulatory subject supports the diagnosis of Diabetes Mellitus. Performed By: #### G LULS ####Point of Care testing, Glucose [Mass/Vol] 397 mg/dL Normal [facility] Comment on above: Result Comment: [facility] Glucose Reference Range is dependent on time and content of last meal. Glucose of more than 200 mg/dL in a nonstressed, ambulatory subject supports the diagnosis of Diabetes Mellitus.PERFORMED BY:[address] HERNDONLuciaJARETT, [place] [phone] MEDICAL MAJOR LARSON M.D. Performed By: #### G LULS ####Point of Care testing, Glucose [Mass/Vol] 246 mg/dL Normal [facility] Comment on above: Result Comment: [facility] Glucose Reference Range is dependent on time and content of last meal. Glucose of more than 200 mg/dL in a nonstressed, ambulatory subject supports the diagnosis of Diabetes Mellitus.PERFORMED BY:[address] [place], [place] [phone] MEDICAL MAJOR LARSON M.D. Performed By: #### G LULS ####Point of Care testing, Glucose [Mass/Vol] 225 mg/dL Normal [facility] Comment on above: Result Comment: [facility] Glucose Reference Range is dependent on time and content of last meal. Glucose of more than 200 mg/dL in a nonstressed, ambulatory subject supports the diagnosis of Diabetes Mellitus.PERFORMED BY:[address] [place], [place] [phone] MEDICAL MAJOR LARSON M.D. Performed By: #### G LULS ####Point of Care testing, Glucose [Mass/Vol] 227 mg/dL Normal [facility] Comment on above: Result Comment: [facility] Glucose Reference Range is dependent on time and content of last meal. Glucose of more than 200 mg/dL in a nonstressed, ambulatory subject supports the diagnosis of Diabetes Mellitus.PERFORMED BY:[address] HER[address]ONLuciaJ[place], [place] [phone] BARRETT LARSON M.D. Performed By: #### G LULS ####Point of Care testing, Glucose [Mass/Vol] 373 mg/dL Normal [facility] Comment on above: Result Comment: [facility] Glucose Reference Range is dependent on time and content of last meal. Glucose of more than 200 mg/dL in a nonstressed, ambulatory subject supports the diagnosis of Diabetes Mellitus.PERFORMED BY:[address] [place], [place] [phone] MEDICAL DIRECTORRAMEZ LARSON M.D. Performed By: #### G LULS ####Point of Care testing, A1C with Estimated Average Sherry nicholson 12-30-2022 Glucose [Mass/Vol] 171 mg/dL Normal [facility] Comment on above: Result Comment: PERF ORMED BY:[address] [place] [place], [place] [phone] MEDICAL DIRECTORRAMEZ LARSON M.D. Performed By: #### C BC, [id number], FE and TIBC, MAURICIO, RETIC, LDH, A[facility]C [facility], CMP ####[address] HbA1c (Bld) [Mass fraction] 7.6 % High 4.3-5.6 [facility] Comment on above: Result Comment: Incr eased risk for diabetes: 5.7 - 6.4 diabetes: >6.4 glycemic control for adults with diabetes: <7.0 Performed By: #### C BC, [id number], FE and TIBC, MAURICIO, RETIC, LDH, A1C WT eA, CMP ####[address] Absolute reticulocyte countO rdered By: Carlton Mtz on 12-30-2022 Reticulocytes (Bld) [#/Vol] 0.052 10*6/uL 0.024-0.084 [facility] B-Type Natriuretic Peptideon 12-30-2022 Natriuretic peptide B (Bld) [Mass/Vol] 1358.0 pg/mL High 5-100 [facility] Comment on above: Result Comment: PERF ORMED BY:[address] [place], [place] [phone] MEDICAL DIRECTORRAMEZ LARSON M.D. Performed By: #### H S TROP, CUBLD, BNP, LACTIC, CBC, CMP, PTT, PT ####[address] [address] [facility] BioFire Not Detectedon 12-30 BioFire Not Detected Not detected Normal Not Detecte [facility] Comment on above: Result Comment: This is a duplicate RP2.1 COVID (PCR) result to be used for statistical tracking purpose only.PERFORMED BY:[address]reMENDHAM, [place] [phone] MEDICAL DIRECTORRAMEZ LARSON M.D. Performed By: #### R JACKI PANEL UPP., BIOFIRECOVNOTDE ####[address] [address] [facility] Blood Cultureon 12-30-2022 Bacteria identified Cx Nom (Bld) NO GROWTH 5 DAYS PERFORMED BY: [address] [address] PATHOLOGIST BARREL STAVE INSPECTOR RAMEZ LARSON M.D. [facility] Comment on above: Performed By: #### H S TROP, CUBLD, BNP, LACTIC, CBC, CMP, PTT, PT ####[address] [address] [facility] Bacteria identified Cx Nom (Bld) NO GROWTH 5 DAYS PERFORMED BY: [address] [address] PATHOLOGIST BARREL STAVE INSPECTOR RAMEZ LARSON M.D. [facility] Comment on above: Performed By: #### H S TROP, CUBLD, BNP, LACTIC, CBC, CMP, PTT, PT ####[address] [address] [facility] CA cardiac event monitoron 1 03-01-2022 CA cardiac event monitor Normal [facility] COVID-19 / Flu A/B / RSV PCR on 12-30-2022 SARS-CoV-2 (COVID-19) RNA MADISON+probe Ql (Unsp spec) Normal [facility] Comment on above: Performed By: #### C EPHEID NEG, COVID19 FLU RSV ####[place] [id number] [facility] COVID-19 Detected/Not Detect edOrdered By: Carlton Mtz on 12-30-2022 SARS-CoV-2 (COVID-19) RNA [place]ADISON+non-probe Ql (Nph) Not detected Not Detecte [facility] Comment on above: This is a duplicate RP2.1 COVID (PCR) result to be used for statistical tracking purpose only. Cepheid COVID PCR Negativeon 12-30-2022 SARS-CoV-2 (COVID-19) RNA MADISON+probe Ql (Unsp spec) Negative Normal Negative [facility] Comment on above: Result Comment: This is a duplicate Cepheid Xpert Xpress CoV-2/Flu/RSV Plus RNA by RT-PCR result to be used for statistical tracking purpose only.PERFORMED BY:[address] [place], [place] [phone] MEDICAL DIRECTORRAMEZ LARSON M.D. Performed By: #### C EPHEID NEG, COVID19 FLU RSV ####[address] Complete Blood Count Auto Di ffon 12-30-2022 Basophils (Bld) [#/Vol] 0.0 10*3/uL Normal 0.0-0.2 [facility] Comment on above: Performed By: #### C BC, [id number], FE and TIBC, MAURICIO, RETIC, LDH, A1C WTH eA, CMP ####[address] Basophils/100 WBC (Bld) 0.5 % Normal . [facility] Comment on above: Performed By: #### C BC, [id number], FE and TIBC, MAURICIO, RETIC, LDH, A1C WTH eA, CMP ####[place] [address] [place] Eosinophils (Bld) [#/Vol] 0.1 10*3/uL Normal 0.0-0.45 [facility] Comment on above: Performed By: #### C BC, [id number], FE and TIBC, MAURICIO, RETIC, LDH, A1C WTH eA, CMP ####[address] Eosinophils/100 WBC (Bld) 1.7 % Normal . [facility] Comment on above: Performed By: #### C BC, [id number], FE and TIBC, MAURICIO, RETIC, LDH, A[facility]C [facility], CMP ####[address] Erythrocyte distribution width (RBC) [Ratio] 17.7 % High 11.9-15.3 [facility] Comment on above: Performed By: #### C BC, [id number], FE and TIBC, MAURICIO, RETIC, LDH, A1C WTH , CMP ####[address] Hematocrit (Bld) [Volume fraction] 27.0 % Low 34.0-46.4 [facility] Comment on above: Performed By: #### C BC, [id number], FE and TIBC, MAURICIO, RETIC, LDH, A1C [facility], [facility] ####[address] Hemoglobin (Bld) [Mass/Vol] 8.5 g/dL Low 11.8-15.4 [facility] Comment on above: Performed By: #### C BC, [id number], FE and TIBC, MAURICIO, RETIC, LDH, A1C [facility], CMP ####[address] Lymphocytes (Bld) [#/Vol] 1.1 10*3/uL Normal 1.00-4.8 [facility] Comment on above: Performed By: #### C BC, [id number], FE and TIBC, MAURICIO, RETIC, LDH, A1C WTH eA, CMP ####[place] [address] Lymphocytes/100 WBC (Bld) 13.1 % Normal . [facility] Comment on above: Performed By: #### C BC, [id number], FE and TIBC, MAURICIO, RETIC, LDH, A1C WTH eA, CMP ####[address] MCH (RBC) [Entitic mass] 28.0 pg Normal 24.7-34.3 [facility] Comment on above: Performed By: #### C BC, [id number], FE and TIBC, MAURICIO, RETIC, LDH, A1C WTH eA, CMP ####[address] MCV (RBC) [Entitic vol] 89.5 fL Normal 80-100 F [facility] Comment on above: Performed By: #### C BC, [id number], FE and TIBC, MAURICIO, RETIC, LDH, A1C WTH eA, CMP ####[address] Mean Corpuscular HGB Conc 31.3 g/dL Low 32.0-35.0 [facility] Comment on above: Performed By: #### C BC, [id number], FE and TIBC, MAURICIO, RETIC, LDH, A1C WTH eA, CMP ####[address] Monocytes (Bld) [#/Vol] 1.2 10*3/uL High 0.0-0.8 [facility] Comment on above: Performed By: #### C BC, [id number], FE and TIBC, MAURICIO, RETIC, LDH, A1C WTH eA, CMP ####[address] Monocytes/100 WBC (Bld) 13.6 % Normal . [facility] Comment on above: Performed By: #### C BC, [id number], FE and TIBC, MAURICIO, RETIC, LDH, A1C WTH eA, CMP ####[place] [address] Neutrophils (Bld) [#/Vol] 6.2 10*3/uL Normal 1.8-7.7 [facility] Comment on above: Performed By: #### C BC, [id number], FE and TIBC, MAURICIO, RETIC, LDH, A1C WTH eA, CMP ####[address] Neutrophils/100 WBC (Bld) 71.1 % Normal . [facility] Comment on above: Performed By: #### C BC, [id number], FE and TIBC, MAURICIO, RETIC, LDH, A1C WTH eA, CMP ####[address] NRBC% 0.0 /100{WBC} Normal 0-0.5 [facility] Comment on above: Performed By: #### C BC, [id number], FE and TIBC, MAURICIO, RETIC, LDH, A1C WTH eA, CMP ####[address] Platelet mean volume (Bld) [Entitic vol] 7.2 fL Normal 6.3-10.7 [facility] Comment on above: Performed By: #### C BC, [id number], FE and TIBC, MAURICIO, RETIC, LDH, A1C WTH eA, CMP ####[address] Platelets (Bld) [#/Vol] 386 10*3/uL Normal 150-450 [facility] Comment on above: Performed By: #### C BC, [id number], FE and TIBC, MAURICIO, RETIC, LDH, A1C WTH eA, CMP ####[address] RBC (Bld) [#/Vol] 3.02 10*6/uL Low 3.60-5.00 [facility] Comment on above: Performed By: #### C BC, [id number], FE and TIBC, MAURICIO, RETIC, LDH, A1C WTH eA, CMP ####[address] WBC (Bld) [#/Vol] 8.7 10*3/uL Normal 3.8-11.6 [facility] Comment on above: Performed By: #### C BC, [id number], FE and TIBC, MAURICIO, RETIC, LDH, A1C [facility] eA, CMP ####[place] [id number] [facility] Basophils (Bld) [#/Vol] 0.0 10*3/uL Normal 0.0-0.2 [facility] Comment on above: Result Comment: PERF ORMED BY:[address] [place], [place] [phone] MEDICAL DIRECTORRAMEZ LARSON M.D. Performed By: #### H S TROP, CUBLD, BNP, LACTIC, CBC, CMP, PTT, PT ####[address] Basophils/100 WBC (Bld) 0.3 % Normal . [facility] Comment on above: Performed By: #### H S TROP, CUBLD, BNP, LACTIC, CBC, CMP, PTT, PT ####[address] Eosinophils (Bld) [#/Vol] 0.1 10*3/uL Normal 0.0-0.45 [facility] Comment on above: Performed By: #### H S TROP, CUBLD, BNP, LACTIC, CBC, CMP, PTT, PT ####[address] Eosinophils/100 WBC (Bld) 1.0 % Normal . [facility] Comment on above: Performed By: #### H S TROP, CUBLD, BNP, LACTIC, CBC, CMP, PTT, PT ####[address] Erythrocyte distribution width (RBC) [Ratio] 17.6 % High 11.9-15.3 [facility] Comment on above: Performed By: #### H S TROP, CUBLD, BNP, LACTIC, CBC, CMP, PTT, PT ####[address] Hematocrit (Bld) [Volume fraction] 27.8 % Low 34.0-46.4 [facility] Comment on above: Performed By: #### H S TROP, CUBLD, BNP, LACTIC, CBC, CMP, PTT, PT ####[address] Hemoglobin (Bld) [Mass/Vol] 8.8 g/dL Low 11.8-15.4 [facility] Comment on above: Performed By: #### H S TROP, CUBLD, BNP, LACTIC, CBC, CMP, PTT, PT ####[address] Lymphocytes (Bld) [#/Vol] 1.2 10*3/uL Normal 1.00-4.8 [facility] Comment on above: Performed By: #### H S TROP, CUBLD, BNP, LACTIC, CBC, CMP, PTT, PT ####[address] Lymphocytes/100 WBC (Bld) 12.9 % Normal . [facility] Comment on above: Performed By: #### H S TROP, CUBLD, BNP, LACTIC, CBC, CMP, PTT, PT ####[address] MCH (RBC) [Entitic mass] 28.4 pg Normal 24.7-34.3 [facility] Comment on above: Performed By: #### H S TROP, CUBLD, BNP, LACTIC, CBC, CMP, PTT, PT ####[address] MCV (RBC) [Entitic vol] 89.6 fL Normal 80-100 [facility] Comment on above: Performed By: #### H S TROP, CUBLD, BNP, LACTIC, CBC, CMP, PTT, PT ####[address] Mean Corpuscular HGB Conc 31.7 g/dL Low 32.0-35.0 [facility] Comment on above: Performed By: #### H S TROP, CUBLD, BNP, LACTIC, CBC, CMP, PTT, PT ####[address] Monocytes (Bld) [#/Vol] 1.3 10*3/uL High 0.0-0.8 [facility] Comment on above: Performed By: #### H S TROP, CUBLD, BNP, LACTIC, CBC, CMP, PTT, PT ####[address] Monocytes/100 WBC (Bld) 23.39 % High 0.00-20.00 [facility] Comment on above: Result Comment: For adults in ED, MDW > 20.0 may be associated with a higher risk of sepsis during the first 12 hrs of hospital admission Performed By: #### H S TROP, CUBLD, BNP, LACTIC, CBC, CMP, PTT, PT ####[address] Monocytes/100 WBC (Bld) 13.9 % Normal . [facility] Comment on above: Performed By: #### H S TROP, CUBLD, BNP, LACTIC, CBC, CMP, PTT, PT ####[address] Neutrophils (Bld) [#/Vol] 6.9 10*3/uL Normal 1.8-7.7 [facility] Comment on above: Performed By: #### H S TROP, CUBLD, BNP, LACTIC, CBC, CMP, PTT, PT ####[place] [id number] [facility] Neutrophils/100 WBC (Bld) 71.9 % Normal . [facility] Comment on above: Performed By: #### H S TROP, CUBLD, BNP, LACTIC, CBC, CMP, PTT, PT ####[place] [id number] [facility] NRBC% 0.0 /100{WBC} Normal 0-0.5 [facility] Comment on above: Performed By: #### H S TROP, CUBLD, BNP, LACTIC, CBC, CMP, PTT, PT ####[address] Platelet mean volume (Bld) [Entitic vol] 7.2 fL Normal 6.3-10.7 [facility] Comment on above: Performed By: #### H S TROP, CUBLD, BNP, LACTIC, CBC, CMP, PTT, PT ####[address] Platelets (Bld) [#/Vol] 397 10*3/uL Normal 150-450 [facility] Comment on above: Performed By: #### H S TROP, CUBLD, BNP, LACTIC, CBC, CMP, PTT, PT ####[address] RBC (Bld) [#/Vol] 3.10 10*6/uL Low 3.60-5.00 [facility] Comment on above: Performed By: #### H S TROP, CUBLD, BNP, LACTIC, CBC, CMP, PTT, PT ####[address] WBC (Bld) [#/Vol] 9.6 10*3/uL Normal 3.8-11.6 [facility] Comment on above: Performed By: #### H S TROP, CUBLD, BNP, LACTIC, CBC, CMP, PTT, PT ####[address] Comprehensive Metabolic Pane eliseo 12-30-2022 Albumin [Mass/Vol] 3.0 g/dL Low 3.5-5.7 [facility] Comment on above: Performed By: #### C BC, [id number], FE and TIBC, MAURICIO, RETIC, LDH, A1C WTH eA, CMP ####[address] Albumin/Globulin [Mass ratio] 1.0 {ratio} Normal [facility] Comment on above: Performed By: #### C BC, [id number], FE and TIBC, MAURICIO, RETIC, LDH, A1C WT eA, CMP ####[address] [address] [facility] ALP [Catalytic activity/Vol] 159 U/L High 34-104 [facility] Comment on above: Performed By: #### C BC, [id number], FE and TIBC, MAURICIO, RETIC, LDH, A1C WTH eA, CMP ####[address] [address] [facility] ALT [Catalytic activity/Vol] 23 U/L Normal 7-52 [facility] Comment on above: Performed By: #### C BC, [id number], FE and TIBC, MAURICIO, RETIC, LDH, A1C WTH eA, CMP ####[place] [id number] [facility] Anion gap [Moles/Vol] 17.4 mmol/L High 6.0-15.0 [facility] Comment on above: Performed By: #### C BC, [id number], FE and TIBC, MAURICIO, RETIC, LDH, A[facility]C [facility], CMP ####[place] [id number] [facility] AST [Catalytic activity/Vol] 19 U/L Normal 13-39 [facility] Comment on above: Performed By: #### C BC, [id number], FE and TIBC, MAURICIO, RETIC, LDH, A1C WT eA, CMP ####[place] [id number] [facility] Bilirubin [Mass/Vol] 0.4 mg/dL Normal 0.3-1.0 [facility] Comment on above: Performed By: #### C BC, [id number], FE and TIBC, MAURICIO, RETIC, LDH, A1C WTH eA, CMP ####[address] [address] [facility] Calcium [Mass/Vol] 9.9 mg/dL Normal 8.6-10.3 [facility] Comment on above: Performed By: #### C BC, [id number], FE and TIBC, MAURICIO, RETIC, LDH, A1C WTH eA, CMP ####[address] Chloride [Moles/Vol] 88 mmol/L Low 98-107 [facility] Comment on above: Performed By: #### C BC, [id number], FE and TIBC, MAURICIO, RETIC, LDH, A1C WT eA, CMP ####[address] CO2 [Moles/Vol] 25.0 mmol/L Normal 21.0-31.0 [facility] Comment on above: Performed By: #### C BC, [id number], FE and TIBC, MAURICIO, RETIC, LDH, A[facility]C [facility], CMP ####[address] Creatinine [Mass/Vol] 5.26 mg/dL Significan t change up 0.60-1.20 [facility] Comment on above: Performed By: #### C BC, [id number], FE and TIBC, MAURICIO, RETIC, LDH, A1C [facility], CMP ####[address] Creatinine Clr Calc Pharmacy 7.98 [facility] Comment on above: Performed By: #### C BC, [id number], FE and TIBC, MAURICIO, RETIC, LDH, A1C [facility], CMP ####[address] GFR/1.73 sq M.predicted MDRD (S/P/Bld) [Vol rate/Area] 8.014 mL/min/{1.73_m2} [facility] Comment on above: Performed By: #### C BC, [id number], FE and TIBC, MAURICIO, RETIC, LDH, A1C WT eA, CMP ####[address] Globulin (S) [Mass/Vol] 3.0 g/dL Normal [facility] Comment on above: Performed By: #### C BC, [id number], FE and TIBC, MAURICIO, RETIC, LDH, A1C WTH eA, CMP ####[place] [id number] [place] [id number] [facility] Glucose [Mass/Vol] 146 mg/dL High 70-100 [facility] Comment on above: Result Comment: [place] Glucose Reference Range is dependent on time and content of last meal. Glucose of more than 200 mg/dL in a nonstressed, ambulatory subject supports the diagnosis of Diabetes Mellitus. ADA recommended reference range Performed By: #### C BC, [id number], FE and TIBC, MAURICIO, RETIC, LDH, A1C WTH eA, CMP ####[address] Potassium [Moles/Vol] 4.4 mmol/L Normal 3.5-5.1 [facility] Comment on above: Performed By: #### C BC, [id number], FE and TIBC, MAURICIO, RETIC, LDH, A1C WTH eA, CMP ####[address] Protein [Mass/Vol] 6.0 g/dL Low 6.4-8.9 [facility] Comment on above: Performed By: #### C BC, [id number], FE and TIBC, MAURICIO, RETIC, LDH, A1C WTH eA, CMP ####[place] [id number] [facility] Sodium [Moles/Vol] 126 mmol/L Low 136-145 [facility] Comment on above: Performed By: #### C BC, [id number], FE and TIBC, MAURICIO, RETIC, LDH, A1C WTH eA, CMP ####[place] [phone] [facility] Urea nitrogen [Mass/Vol] 81 mg/dL High 7-25 [facility] Comment on above: Performed By: #### C BC, [id number], FE and TIBC, MAURICIO, RETIC, LDH, A1C WTH eA, CMP ####[place] [phone] [facility] Albumin [Mass/Vol] 3.2 g/dL Low 3.5-5.7 [facility] Comment on above: Performed By: #### H S TROP, CUBLD, BNP, LACTIC, CBC, CMP, PTT, PT ####[address] Albumin/Globulin [Mass ratio] 0.9 {ratio} Normal [facility] Comment on above: Performed By: #### H S TROP, CUBLD, BNP, LACTIC, CBC, CMP, PTT, PT ####[address] ALP [Catalytic activity/Vol] 146 U/L High 34-104 [facility] Comment on above: Performed By: #### H S TROP, CUBLD, BNP, LACTIC, CBC, CMP, PTT, PT ####[address] ALT [Catalytic activity/Vol] 26 U/L Normal 7-52 [facility] Comment on above: Performed By: #### H S TROP, CUBLD, BNP, LACTIC, CBC, CMP, PTT, PT ####[place] [id number] [facility] Anion gap [Moles/Vol] 18.4 mmol/L High 6.0-15.0 [facility] Comment on above: Performed By: #### H S TROP, CUBLD, BNP, LACTIC, CBC, CMP, PTT, PT ####[place] [phone] [facility] AST [Catalytic activity/Vol] 21 U/L Normal 13-39 [facility] Comment on above: Performed By: #### H S TROP, CUBLD, BNP, LACTIC, CBC, CMP, PTT, PT ####[place] [phone] [facility] Bilirubin [Mass/Vol] 0.4 mg/dL Normal 0.3-1.0 [facility] Comment on above: Performed By: #### H S TROP, CUBLD, BNP, LACTIC, CBC, CMP, PTT, PT ####[place] [address] [place] [address] [facility] Calcium [Mass/Vol] 10.2 mg/dL Normal 8.6-10.3 [facility] Comment on above: Performed By: #### H S TROP, CUBLD, BNP, LACTIC, CBC, CMP, PTT, PT ####[place] [id number] [place] [phone] [facility] Chloride [Moles/Vol] 86 mmol/L Low 98-107 [facility] Comment on above: Performed By: #### H S TROP, CUBLD, BNP, LACTIC, CBC, CMP, PTT, PT ####[place] [phone] [facility] CO2 [Moles/Vol] 25.8 mmol/L Normal 21.0-31.0 [facility] Comment on above: Performed By: #### H S TROP, CUBLD, BNP, LACTIC, CBC, CMP, PTT, PT ####[place] [address] [place] [phone] [facility] Creatinine [Mass/Vol] 4.76 mg/dL High 0.60-1.20 [facility] Comment on above: Performed By: #### H S TROP, CUBLD, BNP, LACTIC, CBC, CMP, PTT, PT ####[place] [id number] [facility] Creatinine Clr Calc Pharmacy 8.82 [facility] Comment on above: Result Comment: PERF ORMED BY:[address] [place], [place] [phone] MEDICAL DIRECTORRAMEZ LARSON M.D. Performed By: #### H S TROP, CUBLD, BNP, LACTIC, CBC, CMP, PTT, PT ####[place] [id number] [facility] GFR/1.73 sq M.predicted MDRD (S/P/Bld) [Vol rate/Area] 9.034 mL/min/{1.73_m2} Normal [facility] Comment on above: Performed By: #### H S TROP, CUBLD, BNP, LACTIC, CBC, CMP, PTT, PT ####[place] [id number] [place] [phone] [facility] Globulin (S) [Mass/Vol] 3.7 g/dL Normal [facility] Comment on above: Performed By: #### H S TROP, CUBLD, BNP, LACTIC, CBC, CMP, PTT, PT ####[place] [id number] [facility] Glucose [Mass/Vol] 144 mg/dL High 70-100 [facility] Comment on above: Result Comment: [facility] Glucose Reference Range is dependent on time and content of last meal. Glucose of more than 200 mg/dL in a nonstressed, ambulatory subject supports the diagnosis of Diabetes Mellitus. ADA recommended reference range Performed By: #### H S TROP, CUBLD, BNP, LACTIC, CBC, CMP, PTT, PT ####[address] Potassium [Moles/Vol] 4.2 mmol/L Normal 3.5-5.1 [facility] Comment on above: Performed By: #### H S TROP, CUBLD, BNP, LACTIC, CBC, CMP, PTT, PT ####[place] [phone] [facility] Protein [Mass/Vol] 6.9 g/dL Normal 6.4-8.9 [facility] Comment on above: Performed By: #### H S TROP, CUBLD, BNP, LACTIC, CBC, CMP, PTT, PT ####[place] [phone] [facility] Sodium [Moles/Vol] 126 mmol/L Low 136-145 [facility] Comment on above: Performed By: #### H S TROP, CUBLD, BNP, LACTIC, CBC, CMP, PTT, PT ####[place] [phone] [facility] Urea nitrogen [Mass/Vol] 76 mg/dL High 7-25 [facility] Comment on above: Performed By: #### H S TROP, CUBLD, BNP, LACTIC, CBC, CMP, PTT, PT ####[facility] [address] [place] [address] [facility] ECG 12 lead ECGon 12-30-2022 ECG 12 lead ECG [facility] Fecal occult blood detection by immunochemistryOrdered By: Carlton Mtz on 12-30-2022 Hemoglobin.gastrointest inal Ql (Stl) [facility] Ferritinon 12-30-2022 Ferritin [Mass/Vol] 2214.0 ng/mL High 11.0-306.8 [facility] Comment on above: Performed By: #### C BC, [id number], FE and TIBC, MAURICIO, RETIC, LDH, A1C WTH eA, CMP ####[facility] [id number] [place] [address] [facility] Ferritin [Mass/volume] in Se rum or PlasmaOrdered By: Carlton Mtz on 12-30-2022 Ferritin [Mass/Vol] 2214.0 ng/mL 11.0-306.8 [facility] Folate [Mass/volume] in Seru m or PlasmaOrdered By: Carlton Mtz on 12-30-2022 Folate [Mass/Vol] 14.8 ng/mL >5.9 [facility] Comment on above: Folate reference ran ge: >5.9 ng/mlThe WHO technical consultation on folate and vitamin [id number] has determined that folate concentrations lessthan 4 ng/ml are considered deficient. Glucose Poct Glucometerson 1 03-01-2022 Commemt1 Glu2: Cleaned Meter [facility] Comment on above: Performed By: #### G LULS ####Point of Care testing, Commemt2 SLIDING SCALE COVERA [facility] Comment on above: Result Comment: PERF ORMED BY:[address] [place], [place] [phone] MEDICAL DIRECTORRAMEZ LARSON M.D. Performed By: #### G LULS ####Point of Care testing, Glucose [Mass/Vol] 183 mg/dL Normal [facility] Comment on above: Result Comment: [place] om Glucose Reference Range is dependent on time and content of last meal. Glucose of more than 200 mg/dL in a nonstressed, ambulatory subject supports the diagnosis of Diabetes Mellitus. Performed By: #### G LULS ####Point of Care testing, Glucose [Mass/Vol] 157 mg/dL Normal [facility] Comment on above: Result Comment: [place] om Glucose Reference Range is dependent on time and content of last meal. Glucose of more than 200 mg/dL in a nonstressed, ambulatory subject supports the diagnosis of Diabetes Mellitus.PERFORMED BY:[place] [address] [address] [place] [phone] MEDICAL DIRECTORRAMEZ LARSON M.D. Performed By: #### G LULS ####Point of Care testing, Commemt1 Glu2: Cleaned Meter Normal [facility] Comment on above: Result Comment: PERF ORMED BY:[place] [address] [address] [place], [place] [phone] MEDICAL DIRECTORRAMEZ LARSON M.D. Performed By: #### G LULS ####Point of Care testing, Glucose [Mass/Vol] 137 mg/dL Normal [facility] Comment on above: Result Comment: [place] om Glucose Reference Range is dependent on time and content of last meal. Glucose of more than 200 mg/dL in a nonstressed, ambulatory subject supports the diagnosis of Diabetes Mellitus. Performed By: #### G LULS ####Point of Care testing, Glucose mean value [Mass/vol ume] in Blood Estimated from glycated hemoglobinOrdered By: Carlton Mtz on 12-30-2022 Average glucose Estimated from glycated hemoglobin (Bld) [Mass/Vol] 171 mg/dL [facility] Hemoglobin A1c percentageOrd ered By: Carlton Mtz on 12-30-2022 HbA1c (Bld) [Mass fraction] 7.6 % 4.3-5.6 [facility] Comment on above: Increased risk for d iabetes: 5.7 - 6.4diabetes: >6.4glycemic control for adults with diabetes: <7.0 Iron [Mass/volume] in Serum or PlasmaOrdered By: Carlton Mtz on 12-30-2022 Iron [Mass/Vol] 27 ug/dL 50-212 [facility] Iron and TIBC Profileon 12-12 0-2022 % Iron Saturation 19.4 % Low 20-50 [facility] Comment on above: Performed By: #### C BC, [id number], FE and TIBC, MAURICIO, RETIC, LDH, A1C WT eA, CMP ####[address] [id number] [facility] Iron [Mass/Vol] 27 ug/dL Low 50-212 [facility] Comment on above: Performed By: #### C BC, [id number], FE and TIBC, MAURICIO, RETIC, LDH, A1C WT eA, CMP ####[place] [id number] [facility] Total Iron Binding Capacity 139 ug/dL Low 255-450 [facility] Comment on above: Performed By: #### C BC, [id number], FE and TIBC, MAURICIO, RETIC, LDH, A1C [facility] eA, CMP ####[address] Transferrin [Mass/Vol] 99 mg/dL Low 203-362 [facility] Comment on above: Performed By: #### C BC, [id number], FE and TIBC, MAURICIO, RETIC, LDH, A1C [facility] eA, CMP ####[address] Iron binding capacity [Mass/ volume] in Serum or PlasmaOrdered By: Carlton Mtz on 12-30-2022 Iron binding capacity [Mass/Vol] 139 ug/dL 255-450 [facility] Iron saturation [Mass Fracti on] in Serum or PlasmaOrdered By: Carlton Mtz on 12-30-2022 Iron saturation [Mass fraction] 19.4 % 20-50 [facility] LDH Lactate Dehydrogenaseon 12-30-2022 LDH Lactate Dehydrogenase 127 U/L Low 140-271 [facility] Comment on above: Performed By: #### C BC, [id number], FE and TIBC, MAURICIO, RETIC, LDH, A1C WTH eA, CMP ####[id number] [place] [address] [facility] Lactate dehydrogenase [Enzym atic activity/volume] in Serum or Plasma by Lactate to pyOrdered By: Carlton Mtz on 12-30-2022 LDH Lactate to pyruvate reaction [Catalytic activity/Vol] 127 U/L 140-271 [facility] Lactic Acidon 12-30-2022 Lactate [Moles/Vol] 1.0 mmol/L Normal 0.5-2.2 [facility] Comment on above: Result Comment: PERF ORMED BY:[address] [place], [place] [phone] MEDICAL DIRECTORRAMEZ LARSON M.D. Performed By: #### H S TROP, CUBLD, BNP, LACTIC, CBC, CMP, PTT, PT ####[id number] [facility] No Panel InformationOrdered By: Tatiana Loya on 12-30-2022 Bedside Glucose #2 Comment Sliding scale covera [facility] Partial Thromboplastin Timeo n 12-30-2022 aPTT Coag (Bld) [Time] 27.1 s Normal 25.1-36.5 [facility] Comment on above: Result Comment: A he matocrit value greater than 55% may lead to inaccurate results in coagulation testing. Patients having hematocrit values >55% require a special collection tube for coagulation studies. Please contact the laboratory at [phone] for redraw instructions.PERFORMED BY:[address] [place], [place] [phone] MEDICAL DIRECTORRAMEZ LARSON M.D. Performed By: #### H S TROP, CUBLD, BNP, LACTIC, CBC, CMP, PTT, PT ####[place] [address] [id number] [facility] Prothrombin Time INRon 12-30 INR Coag (PPP) [Relative time] 1.0 {INR} Normal [facility] Comment on above: Result Comment: INR Therapeutic Range A) Pre- and Peroperative OAT started two weeks before surgery. NOT HIP SURGERY: 1.5 - 2.5 HIP SURGERY: 2 - 3 B) Primary and secondary prevention of venous THROMBOSIS: 2 - 3 C) Active venous thrombosis, pulmonary embolism and prevention of recurrent venous thrombosis: 2 - 3 D) Prevention of arterial thromboembolism including patients with mechanical heart valves: 3 - 4.5 Performed By: #### H S TROP, CUBLD, BNP, LACTIC, CBC, CMP, PTT, PT ####[address] [id number] [facility] PT Coag (PPP) [Time] 12.2 s Normal 9.0-12.9 [facility] Comment on above: Result Comment: A he matocrit value greater than 55% may lead to inaccurate results in coagulation testing. Patients having hematocrit values >55% require a special collection tube for coagulation studies. Please contact the laboratory at [phone] for redraw instructions. Performed By: #### H S TROP, CUBLD, BNP, LACTIC, CBC, CMP, PTT, PT ####[address] [address] [place] Respiratory (Upper) Panel, P CRon 12-30-2022 Respiratory (Upper) Panel, PCR Normal [facility] Comment on above: Performed By: #### R JACKI PANEL UPP., BIOFIRECOVNOTDE ####[place] [address] [id number] [facility] Respiratory pathogens DNA an d RNA panel - Nasopharynx by MADISON with non-probe detectionOrdered By: Carlton Mtz on 12-30-2022 Respiratory pathogens DNA and RNA panel MADISON+non-probe (Nph) [facility] Reticulocyte Counton 023 Reticulocyte Number 0.052 10*6/uL Normal 0.024-0.084 [facility] Comment on above: Result Comment: PERF ORMED BY:[address] [place], [place] [phone] MEDICAL DIRECTORRAMEZ LARSON M.D. Performed By: #### C BC, [id number], FE and TIBC, MAURICIO, RETIC, LDH, A1C WTH eA, CMP ####[address] [address] [facility] Reticulocyte Percent 1.7 % High 0.5-1.5 [facility] Comment on above: Performed By: #### C BC, [id number], FE and TIBC, MAURICIO, RETIC, LDH, A1C WTH eA, CMP ####[address] [address] [facility] Reticulocytes/100 RBC Auto ( Bld)Ordered By: Carlton Mtz on 12-30-2022 Reticulocytes/100 RBC (Bld) 1.7 % 0.5-1.5 [facility] Stool Occult Blood (Guaiac)o n 12-30-2022 Stool Occult Blood (Guaiac) Normal [facility] Comment on above: Performed By: #### O B(GUAIAC) ####[address] [id number] [facility] Transferrin [Mass/volume] in Serum or PlasmaOrdered By: Carlton Mtz on 12-30-2022 Transferrin [Mass/Vol] 99 mg/dL 203-362 [facility] Troponin I High Sensitivityo n 12-30-2022 Troponin I High Sensitivity 24.0 pg/mL High 0.0-15.0 [facility] Comment on above: Result Comment: PERF ORMED BY:[address] [place], [place] [phone] MEDICAL DIRECTORRAMEZ LARSON M.D. Performed By: #### H S TROP, CUBLD, BNP, LACTIC, CBC, CMP, PTT, PT ####[address] [address] [facility] Type and Screenon 12-30-2022 ABO and Rh group Nom (Bld) Blood group O Rh(D) positive Normal [facility] Comment on above: Result Comment: PERF ORMED BY:[address], [place] [phone] MEDICAL DIRECTORRAMEZ LARSON M.D. US liveron 12-30-2022 US liver Normal [facility] Vit. B12/Folate Profileon Cobalamin (Vitamin B12) [Mass/Vol] 559 pg/mL Normal 180-914 [facility] Comment on above: Performed By: #### C BC, [id number], FE and TIBC, MAURICIO, RETIC, LDH, A1C WT eA, CMP ####[facility] [address] [place] [address] [facility] Folate 14.8 ng/mL Normal >5.9 [facility] Comment on above: Result Comment: [place] te reference range: >5.9 ng/ml The WHO technical consultation on folate and vitamin b12 deficiencies has determined that folate concentrations less than 4 ng/ml are considered deficient.PERFORMED BY:[address] [place], [place] [phone] MEDICAL DIRECTORRAMEZ LARSON M.D. Performed By: #### C BC, [id number], FE and TIBC, MAURICIO, RETIC, LDH, A1C [facility], CMP ####[facility] [address] [id number] [facility] Vitamin B12 ser/plasOrdered By: Carlton Mtz on 12-30-2022 Cobalamin (Vitamin B12) [Mass/Vol] 559 pg/mL 180-914 [facility] XR abdomen 1Von 12-30-2022 XR abdomen 1V Normal [facility] XR chest 1V portableon 12-30 XR chest 1V portable Normal [facility] Activated partial thrombopla stin time (aPTT) in platelet poor plasma by coagulation aOrdered By: Azar Palmer on 12-29-2022 aPTT Coag (PPP) [Time] 27.1 s 25.1-36.5 [facility] Comment on above: A hematocrit value g reater than 55% may lead to inaccurate results in coagulation testing. Patients having hematocrit values >55% require a special collection tube for coagulation studies. Please contact the laboratory at [phone] for redraw instructions. Alanine aminotransferase [En zymatic activity/volume] in Serum or PlasmaOrdered By: Azar Palmer on 12-29-2022 ALT [Catalytic activity/Vol] 26 U/L 7-52 [facility] Albumin [Mass/volume] in Ser um or Plasma by Bromocresol green (BCG) dye binding methoOrdered By: Azar Palmer on 12-29-2022 Albumin BCG dye [Mass/Vol] 3.2 g/dL 3.5-5.7 [facility] Alkaline phosphatase [Enzyma tic activity/volume] in Serum or PlasmaOrdered By: Azar Plamer on 12-29-2022 ALP [Catalytic activity/Vol] 146 U/L 34-104 [facility] Aspartate aminotransferase [ Enzymatic activity/volume] in Serum or PlasmaOrdered By: Azar Palmer on 12-29-2022 AST [Catalytic activity/Vol] 21 U/L 13-39 [facility] Bacterial blood cultureOrder ed By: Azar Palmer on 12-29-2022 Bacteria identified Cx Nom (Bld) NO GROWTH 5 DAYS [facility] Bacteria identified Cx Nom (Bld) NO GROWTH 5 DAYS [facility] Basophils Auto (Bld) [#/Vol] Ordered By: Azar Palmer on 12-29-2022 Basophils (Bld) [#/Vol] 0.0 10*3/uL 0.0-0.2 [facility] Basophils/100 WBC Auto (Bld) Ordered By: Azar Palmer on 12-29-2022 Basophils/100 WBC (Bld) 0.3 % . F [facility] Bilirubin.total [Mass/volume ] in Serum or PlasmaOrdered By: Azar Palmer on 12-29-2022 Bilirubin [Mass/Vol] 0.4 mg/dL 0.3-1.0 [facility] COVID CepheidOrdered By: Mango Palmer on 12-29-2022 SARS-CoV-2 (COVID-19) Ab IA Ql Negative Negative [facility] Comment on above: This is a duplicate [employer] Xpert Xpress CoV-2/Flu/RSV Plus RNA by RT-PCR result to be used for statistical tracking purpose only. SARS-CoV-2 (COVID-19) RNA MADISON+probe Ql (Unsp spec) [facility] Calcium [Mass/volume] in Ser um or PlasmaOrdered By: Azar Palmer on 12-29-2022 Calcium [Mass/Vol] 10.2 mg/dL 8.6-10.3 [facility] Carbon dioxide, total [Moles /volume] in Serum or PlasmaOrdered By: Azar Palmer on 12-29-2022 CO2 [Moles/Vol] 25.8 mmol/L 21.0-31.0 [facility] Chloride [Moles/volume] in S steffanie or PlasmaOrdered By: Azar Palmer on 12-29-2022 Chloride [Moles/Vol] 86 mmol/L 98-107 [facility] Creatinine [Mass/volume] in Serum or PlasmaOrdered By: Azar Palmer on 12-29-2022 Creatinine [Mass/Vol] 4.76 mg/dL 0.60-1.20 [facility] Eosinophils Auto (Bld) [#/Vo l]Ordered By: Azar Palmer on 12-29-2022 Eosinophils (Bld) [#/Vol] 0.1 10*3/uL 0.0-0.45 [facility] Eosinophils/100 WBC Auto (Bl d)Ordered By: Azar Palmer on 12-29-2022 Eosinophils/100 WBC (Bld) 1.0 % . [facility] Erythrocyte distribution wid th Auto (RBC) [Ratio]Ordered By: Azar Palmer on 12-29-2022 Erythrocyte distribution width (RBC) [Ratio] 17.6 % 11.9-15.3 [facility] Globulin Calc (S) [Mass/Vol] Ordered By: Azar Palmer on 12-29-2022 Globulin (S) [Mass/Vol] 3.7 g/dL [facility] Glucose [Mass/volume] in Ser um or PlasmaOrdered By: Azar Palmer on 12-29-2022 Glucose [Mass/Vol] 144 mg/dL 70-100 [facility] Comment on above: ADA recommended refe rence rangeRandom Glucose Reference Range is dependent on time and content of last meal. Glucose of more than 200 mg/dL in a nonstressed, ambulatory subject supports the diagnosis of Diabetes Mellitus. Hematocrit Auto (Bld) [Volum e fraction]Ordered By: Azar Palmer on 12-29-2022 Hematocrit (Bld) [Volume fraction] 27.8 % 34.0-46.4 [facility] Hemoglobin [Mass/volume] in BloodOrdered By: Azar Palmer on 12-29-2022 Hemoglobin (Bld) [Mass/Vol] 8.8 g/dL 11.8-15.4 [facility] INR in Platelet poor plasma by Coagulation assayOrdered By: Azar Palmer on 12-29-2022 INR Coag (PPP) [Relative time] 1.0 {INR} [facility] Comment on above: INR Therapeutic Rang e A) Pre- and Peroperative OAT started two weeks before surgery. NOT HIP SURGERY: 1.5 - 2.5 HIP SURGERY: 2 - 3B) Primary and secondary prevention of venous THROMBOSIS: 2 - 3C) Active venous thrombosis, pulmonary embolismand prevention of recurrent venous thrombosis: 2 - 3D) Prevention of arterial thromboembolismincluding patients with mechanical heart valves: 3 - 4.5 Lactate [Moles/volume] in Se rum or PlasmaOrdered By: Azar Palmer on 12-29-2022 Lactate [Moles/Vol] 1.0 mmol/L 0.5-2.2 [facility] Leukocytes [#/volume] correc tr for nucleated erythrocytes in Blood by Automated counOrdered By: Azar Palmer on 12-29-2022 WBC corrected for nucl RBC Auto (Bld) [#/Vol] 9.6 10*3/uL 3.8-11.6 [facility] Lymphocytes Auto (Bld) [#/Vo l]Ordered By: Azar Palmer on 12-29-2022 Lymphocytes (Bld) [#/Vol] 1.2 10*3/uL 1.00-4.8 [facility] Lymphocytes/100 WBC Auto (Bl d)Ordered By: Azar Palmer on 12-29-2022 Lymphocytes/100 WBC (Bld) 12.9 % . [facility] MCH Auto (RBC) [Entitic mass ]Ordered By: Azar Palmer on 12-29-2022 MCH (RBC) [Entitic mass] 28.4 pg 24.7-34.3 [facility] MCHC Auto (RBC) [Mass/Vol]Or dered By: Azar Palmer on 12-29-2022 MCHC (RBC) [Mass/Vol] 31.7 g/dL 32.0-35.0 [facility] MCV Auto (RBC) [Entitic vol] Ordered By: Azar Palmer on 12-29-2022 MCV (RBC) [Entitic vol] 89.6 fL 80-100 [facility] Monocyte distribution width [Entitic volume] in Blood by AutomatedOrdered By: Azar Palmer on 12-29-2022 Monocyte distribution width Auto (Bld) [Entitic vol] 23.39 % 0.00-20.00 [facility] Comment on above: For adults in ED, MD W > 20.0 may be associated with a higher risk of sepsis during the first 12 hrs of hospital admission Monocytes Auto (Bld) [#/Vol] Ordered By: Azar Palmer on 12-29-2022 Monocytes (Bld) [#/Vol] 1.3 10*3/uL 0.0-0.8 [facility] Monocytes/100 WBC Auto (Bld) Ordered By: Azar Palmer on 12-29-2022 Monocytes/100 WBC (Bld) 13.9 % . F [facility] Natriuretic peptide B [Mass/ Vol]Ordered By: Azar Palmer on 12-29-2022 Natriuretic peptide B (Bld) [Mass/Vol] 1358.0 pg/mL 5-100 [facility] Neutrophils Auto (Bld) [#/Vo l]Ordered By: Azar Palmer on 12-29-2022 Neutrophils (Bld) [#/Vol] 6.9 10*3/uL 1.8-7.7 [facility] Neutrophils/100 WBC Auto (Bl d)Ordered By: Azar Palmer on 12-29-2022 Neutrophils/100 WBC (Bld) 71.9 % . [facility] No Panel InformationOrdered By: Azar Palmer on 12-29-2022 Estimated GFR (CKD-EPI) 9.034 mL/Min [facility] Creatinine Clearance (Chem 8.82 [facility] Nucleated erythrocytes [Pres ence] in Blood by Automated countOrdered By: Azar Palmer on 12-29-2022 Nucleated RBC Auto Ql (Bld) 0.0 /100{WBC} 0-0.5 [facility] Platelet mean volume Auto (B ld) [Entitic vol]Ordered By: Azar Palmer on 12-29-2022 Platelet mean volume (Bld) [Entitic vol] 7.2 fL 6.3-10.7 [facility] Platelets Auto (Bld) [#/Vol] Ordered By: Azar Palmer on 12-29-2022 Platelets (Bld) [#/Vol] 397 10*3/uL 150-450 [facility] Potassium [Moles/volume] in Serum or PlasmaOrdered By: Azar Palmer on 12-29-2022 Potassium [Moles/Vol] 4.2 mmol/L 3.5-5.1 [facility] Protein [Mass/volume] in Ser um or PlasmaOrdered By: Azar Palmer on 12-29-2022 Protein [Mass/Vol] 6.9 g/dL 6.4-8.9 [facility] Prothrombin time (PT)Ordered By: Azar Palmer on 12-29-2022 PT Coag (PPP) [Time] 12.2 s 9.0-12.9 [facility] Comment on above: A hematocrit value g reater than 55% may lead to inaccurate results in coagulation testing. Patients having hematocrit values >55% require a special collection tube for coagulation studies. Please contact the laboratory at [phone] for redraw instructions. RBC Auto (Bld) [#/Vol]Ordere d By: Azar Palmer on 12-29-2022 RBC (Bld) [#/Vol] 3.10 10*6/uL 3.60-5.00 [facility] Serum or plasma albumin/glob ulin mass ratioOrdered By: Azar Palmer on 12-29-2022 Albumin/Globulin [Mass ratio] 0.9 {ratio} [facility] Serum or plasma anion gap de terminationOrdered By: Azar Palmer on 12-29-2022 Anion gap [Moles/Vol] 18.4 mmol/L 6.0-15.0 [facility] Sodium [Moles/volume] in Ser um or PlasmaOrdered By: Azar Palmer on 12-29-2022 Sodium [Moles/Vol] 126 mmol/L 136-145 [facility] Troponin I.cardiac [Mass/vol ume] in Serum or Plasma by Detection limit <= 0.01 ng/Ordered By: Azar Palmer on 12-29-2022 Troponin I.cardiac DL <= 0.01 ng/mL [Mass/Vol] 24.0 pg/mL 0.0-15.0 [facility] Urea nitrogen [Mass/volume] in Serum or PlasmaOrdered By: Azar Palmer on 12-29-2022 Urea nitrogen [Mass/Vol] 76 mg/dL 7-25 [facility] WBC Auto (Bld) [#/Vol]Ordere d By: Azar Palmer on 12-29-2022 WBC (Bld) [#/Vol] 9.6 10*3/uL 3.8-11.6 [facility] Office Visiton 12-26-2022 Follow-up visit [id number] Wilbert Wilson 1945 F Date Provider Department Center 12/26/2022 Ismael-YUVAL, CHELI BH [facility]ARD [facility] No family history on file Level of Service:45484 NC OFFICE/OUTPATIENT ESTABLISHED MOD MDM 30-39 MIN Normal [facility] US PVR Lower EXT Complete Bi laton 12-25-2022 US PVR Lower EXT Complete Bilat Exam Date/Time: 12/24/2022 14:20 EST Reason for Exam: L97.812 Report IMPRESSION: RIGHT AND LEFT ANKLE-BRACHIAL INDICES ARE NORMAL AT REST. CLINICAL HISTORY: L97.812. COMMENT: On the right, the brachial systolic pressure is 109 , the high thigh pressure is 131 , the low thigh pressure is 126 , the calf pressure is 197 , the posterior tibial ankle pressure is 143 , the dorsalis pedis ankle pressure is 145 , and the digit pressure is 108 . The high thigh-brachial index is 1.20, with normal 1.0 or greater. The ankle-brachial index at the posterior tibial artery is 1.31 and at the dorsalis pedis is 1.33, with normal 1.0 or greater. The toe-brachial index is 0.99, with normal 0.7 or greater. The plethysmography waveforms are mildly abnormal from thigh to ankle and moderately abnormal at.. On the left, the brachial systolic pressure is , the high thigh pressure is 147 , the low thigh pressure is 125 , the calf pressure is 223 , the posterior tibial ankle pressure is 155 , the dorsalis pedis ankle pressure is 127 , and the digit pressure is 73. The high thigh-brachial index is 1.35, with normal 1.0 or greater. The ankle-brachial index at the posterior tibial artery is 1.42 and at the dorsalis pedis is 1.17, with normal 1.0 or greater. The toe-brachial index is 0.67, with normal 0.7 or greater. The plethysmography waveforms are mildly abnormal from thigh to ankle and moderately abnormal at.. Ordering Provider: Stephan Elizondo FINAL REPORT Dictated: 12/25/2022 4:36 pm Armando Turpin M.D. Signed (Electronic Signature): 12/25/2022 4:36 pm Signed by: Armando Turpin M.D. Transcribed by: YENIFER Technologist: [facility] Consent for Treatmenton 12-11 Consent for Treatment [id number] [facility] Physician Orderon 12-19-2022 Physician Order [id number] [facility] Glucose Glucometer (BldC) [M ass/Vol]Ordered By: Annette Tenorio on 12-16-2022 Glucose [Mass/Vol] 231 mg/dL [facility] Comment on above: Random Glucose Refer ence Range is dependent on time and content of last meal. Glucose of more than 200 mg/dL in a nonstressed, ambulatory subject supports the diagnosis of Diabetes Mellitus. Glucose Poct Glucometerson 1 02-15-2022 Glucose [Mass/Vol] 231 mg/dL Normal [facility] Comment on above: Result Comment: [place] om Glucose Reference Range is dependent on time and content of last meal. Glucose of more than 200 mg/dL in a nonstressed, ambulatory subject supports the diagnosis of Diabetes Mellitus.PERFORMED BY:[place] [address] [place], [place] [phone] MEDICAL DIRECTORRAMEZ LARSON M.D. Performed By: #### G LUANNITA ####Point of Care testing, Glucose [Mass/Vol] 138 mg/dL Normal [facility] Comment on above: Result Comment: [place] om Glucose Reference Range is dependent on time and content of last meal. Glucose of more than 200 mg/dL in a nonstressed, ambulatory subject supports the diagnosis of Diabetes Mellitus.PERFORMED BY:[address] [place] [phone] MEDICAL DIRECTORRAMEZ LARSON M.D. Performed By: #### G LULS ####Point of Care testing, Glucose [Mass/Vol] 208 mg/dL Normal [facility] Comment on above: Result Comment: [place] om Glucose Reference Range is dependent on time and content of last meal. Glucose of more than 200 mg/dL in a nonstressed, ambulatory subject supports the diagnosis of Diabetes Mellitus.PERFORMED BY:[place] [address] [place], [place] [phone] MEDICAL DIRECTORRAMEZ LARSON M.D. Performed By: #### G LULS ####Point of Care testing, Basic Metabolic Panelon 11-0 Anion gap [Moles/Vol] 18.3 mmol/L High 6.0-15.0 [facility] Comment on above: Performed By: #### B MP, CBC, MG ####[facility] [place] [address] [facility] Calcium [Mass/Vol] 8.9 mg/dL Normal 8.6-10.3 [facility] Comment on above: Performed By: #### B MP, CBC, MG ####[facility] [place] [address] [facility] Chloride [Moles/Vol] 91 mmol/L Low 98-107 [facility] Comment on above: Performed By: #### B MP, CBC, MG ####[facility] [address] [place] [address] [facility] CO2 [Moles/Vol] 24.1 mmol/L Normal 21.0-31.0 [facility] Comment on above: Performed By: #### B MP, CBC, MG ####[facility] [place] [id number] [facility] Creatinine [Mass/Vol] 4.59 mg/dL Significan t change up 0.60-1.20 [facility] Comment on above: Performed By: #### B MP, CBC, MG ####[place] [address] [place] [id number] [facility] Creatinine Clr Calc Pharmacy 9.14 [facility] Comment on above: Result Comment: PERF ORMED BY:[address] [place], [place] [phone] MEDICAL DIRECTORRAMEZ LARSON M.D. Performed By: #### B MP, CBC, MG ####[place] [address] [place] [id number] [facility] GFR/1.73 sq M.predicted MDRD (S/P/Bld) [Vol rate/Area] 9.437 mL/min/{1.73_m2} [facility] Comment on above: Performed By: #### B MP, CBC, MG ####[place] [id number] [facility] Glucose [Mass/Vol] 181 mg/dL Significant change up 70-100 [facility] Comment on above: Result Comment: [facility] Glucose Reference Range is dependent on time and content of last meal. Glucose of more than 200 mg/dL in a nonstressed, ambulatory subject supports the diagnosis of Diabetes Mellitus. ADA recommended reference range Performed By: #### B MP, CBC, MG ####[place] [id number] [facility] Potassium [Moles/Vol] 4.4 mmol/L Normal 3.5-5.1 [facility] Comment on above: Performed By: #### B MP, CBC, MG ####[place] [address] [place] [id number] [facility] Sodium [Moles/Vol] 129 mmol/L Low 136-145 [facility] Comment on above: Performed By: #### B MP, CBC, MG ####[place] [address] [place] [id number] [facility] Urea nitrogen [Mass/Vol] 70 mg/dL High 7-25 [facility] Comment on above: Performed By: #### B MP, CBC, MG ####[facility] [place] [address] [facility] Basophils Auto (Bld) [#/Vol] Ordered By: Erica Armenta on 12-15-2022 Basophils (Bld) [#/Vol] 0.0 10*3/uL 0.0-0.2 [facility] Basophils/100 WBC Auto (Bld) Ordered By: Erica Armenta on 12-15-2022 Basophils/100 WBC (Bld) 0.3 % . F [facility] Calcium [Mass/volume] in Ser um or PlasmaOrdered By: Erica Armenta on 12-15-2022 Calcium [Mass/Vol] 8.9 mg/dL 8.6-10.3 [facility] Carbon dioxide, total [Moles /volume] in Serum or PlasmaOrdered By: Erica Armenta on 12-15-2022 CO2 [Moles/Vol] 24.1 mmol/L 21.0-31.0 [facility] Chloride [Moles/volume] in S steffanie or PlasmaOrdered By: Erica Armenta on 12-15-2022 Chloride [Moles/Vol] 91 mmol/L 98-107 [facility] Complete Blood Count Auto Di ffon 12-15-2022 Basophils (Bld) [#/Vol] 0.0 10*3/uL Normal 0.0-0.2 [facility] Comment on above: Result Comment: PERF ORMED BY:[address] [place], [place] [phone] MEDICAL DIRECTORRAMEZ LARSON M.D. Performed By: #### B MP, CBC, MG ####[id number] [place] [address] [facility] Basophils/100 WBC (Bld) 0.3 % Normal . [facility] Comment on above: Performed By: #### B MP, CBC, MG ####[address] Eosinophils (Bld) [#/Vol] 0.2 10*3/uL Normal 0.0-0.45 [facility] Comment on above: Performed By: #### B MP, CBC, MG ####[address] Eosinophils/100 WBC (Bld) 1.5 % Normal . [facility] Comment on above: Performed By: #### B MP, CBC, MG ####[address] Erythrocyte distribution width (RBC) [Ratio] 17.6 % High 11.9-15.3 [facility] Comment on above: Performed By: #### B MP, CBC, MG ####[address] Hematocrit (Bld) [Volume fraction] 33.1 % Low 34.0-46.4 [facility] Comment on above: Performed By: #### B MP, CBC, MG ####[address] Hemoglobin (Bld) [Mass/Vol] 10.4 g/dL Low 11.8-15.4 [facility] Comment on above: Performed By: #### B MP, CBC, MG ####[address] Lymphocytes (Bld) [#/Vol] 1.1 10*3/uL Normal 1.00-4.8 [facility] Comment on above: Performed By: #### B MP, CBC, MG ####[address] Lymphocytes/100 WBC (Bld) 10.4 % Normal . [facility] Comment on above: Performed By: #### B MP, CBC, MG ####[address] MCH (RBC) [Entitic mass] 28.7 pg Normal 24.7-34.3 [facility] Comment on above: Performed By: #### B MP, CBC, MG ####[address] [place] [id number] [facility] MCV (RBC) [Entitic vol] 91.4 fL Normal 80-100 [facility] Comment on above: Performed By: #### B MP, CBC, MG ####[address] Mean Corpuscular HGB Conc 31.4 g/dL Low 32.0-35.0 [facility] Comment on above: Performed By: #### B MP, CBC, MG ####[address] Monocytes (Bld) [#/Vol] 0.9 10*3/uL High 0.0-0.8 [facility] Comment on above: Performed By: #### B MP, CBC, MG ####[address] Monocytes/100 WBC (Bld) 8.5 % Normal . [facility] Comment on above: Performed By: #### B MP, CBC, MG ####[address] Neutrophils (Bld) [#/Vol] 8.5 10*3/uL High 1.8-7.7 [facility] Comment on above: Performed By: #### B MP, CBC, MG ####[id number] [facility] Neutrophils/100 WBC (Bld) 79.3 % Normal . [facility] Comment on above: Performed By: #### B MP, CBC, MG ####[id number] [facility] NRBC% 0.0 /100{WBC} Normal 0-0.5 [facility] Comment on above: Performed By: #### B MP, CBC, MG ####[id number] [facility] Platelet mean volume (Bld) [Entitic vol] 7.5 fL Normal 6.3-10.7 [facility] Comment on above: Performed By: #### B MP, CBC, MG ####[address] Platelets (Bld) [#/Vol] 305 10*3/uL Normal 150-450 [facility] Comment on above: Performed By: #### B MP, CBC, MG ####[address] RBC (Bld) [#/Vol] 3.63 10*6/uL Normal 3.60-5.00 [facility] Comment on above: Performed By: #### B MP, CBC, MG ####[address] WBC (Bld) [#/Vol] 10.7 10*3/uL Normal 3.8-11.6 [facility] Comment on above: Performed By: #### B MP, CBC, MG ####[address] Creatinine [Mass/volume] in Serum or PlasmaOrdered By: Erica Armenta on 12-15-2022 Creatinine [Mass/Vol] 4.59 mg/dL 0.60-1.20 [facility] Comment on above: Delta: 3.37 on 12/14-0454 Eosinophils Auto (Bld) [#/Vo l]Ordered By: Erica Armenta on 12-15-2022 Eosinophils (Bld) [#/Vol] 0.2 10*3/uL 0.0-0.45 [facility] Eosinophils/100 WBC Auto (Bl d)Ordered By: Erica Armenta on 12-15-2022 Eosinophils/100 WBC (Bld) 1.5 % . [facility] Erythrocyte distribution wid th Auto (RBC) [Ratio]Ordered By: Erica Armenta on 12-15-2022 Erythrocyte distribution width (RBC) [Ratio] 17.6 % 11.9-15.3 [facility] Glucose Poct Glucometerson 1 02-14-2022 Commemt1 Glu2: Cleaned Meter Normal [facility] Comment on above: Result Comment: PERF ORMED BY:[address] [place], [place] [phone] MEDICAL DIRECTORRAMEZ LARSON M.D. Performed By: #### G LULS ####Point of Care testing, Glucose [Mass/Vol] 189 mg/dL Normal [facility] Comment on above: Result Comment: [place] om Glucose Reference Range is dependent on time and content of last meal. Glucose of more than 200 mg/dL in a nonstressed, ambulatory subject supports the diagnosis of Diabetes Mellitus. Performed By: #### G LULS ####Point of Care testing, Glucose [Mass/Vol] 172 mg/dL Normal [facility] Comment on above: Result Comment: [place] om Glucose Reference Range is dependent on time and content of last meal. Glucose of more than 200 mg/dL in a nonstressed, ambulatory subject supports the diagnosis of Diabetes Mellitus.PERFORMED BY:[address] [place], [place] [phone] MEDICAL DIRECTORRAMEZ LARSON M.D. Performed By: #### G LULS ####Point of Care testing, Commemt1 Glu2: Cleaned Meter [facility] Comment on above: Result Comment: PERF ORMED BY:[address] [address] [place] [place], [place] [phone] MEDICAL DIRECTORRAMEZ LARSON M.D. Performed By: #### G LULS ####Point of Care testing, Glucose [Mass/Vol] 168 mg/dL Normal [facility] Comment on above: Result Comment: [place] om Glucose Reference Range is dependent on time and content of last meal. Glucose of more than 200 mg/dL in a nonstressed, ambulatory subject supports the diagnosis of Diabetes Mellitus. Performed By: #### G LULS ####Point of Care testing, Commemt1 Glu2: Cleaned Meter [facility] Comment on above: Result Comment: PERF ORMED BY:[address] [address] [address] [place], [place] [phone] MEDICAL DIRECTORRAMEZ LARSON M.D. Performed By: #### G LULS ####Point of Care testing, Glucose [Mass/Vol] 150 mg/dL Normal [facility] Comment on above: Result Comment: [place] Glucose Reference Range is dependent on time and content of last meal. Glucose of more than 200 mg/dL in a nonstressed, ambulatory subject supports the diagnosis of Diabetes Mellitus. Performed By: #### G LULS ####Point of Care testing, Glucose [Mass/volume] in Ser um or PlasmaOrdered By: Erica Armenta on 12-15-2022 Glucose [Mass/Vol] 181 mg/dL 70-100 [facility] Comment on above: Delta: 317 on -0454ADA recommended reference rangeRandom Glucose Reference Range is dependent on time and content of last meal. Glucose of more than 200 mg/dL in a nonstressed, ambulatory subject supports the diagnosis of Diabetes Mellitus. Hematocrit Auto (Bld) [Volum e fraction]Ordered By: Erica Armenta on 12-15-2022 Hematocrit (Bld) [Volume fraction] 33.1 % 34.0-46.4 [facility] Hemoglobin [Mass/volume] in BloodOrdered By: Erica Armenta on 12-15-2022 Hemoglobin (Bld) [Mass/Vol] 10.4 g/dL 11.8-15.4 [facility] Leukocytes [#/volume] correc tr for nucleated erythrocytes in Blood by Automated counOrdered By: Erica Armenta on 12-15-2022 WBC corrected for nucl RBC Auto (Bld) [#/Vol] 10.7 10*3/uL 3.8-11.6 [facility] Lymphocytes Auto (Bld) [#/Vo l]Ordered By: Erica Armenta on 12-15-2022 Lymphocytes (Bld) [#/Vol] 1.1 10*3/uL 1.00-4.8 [facility] Lymphocytes/100 WBC Auto (Bl d)Ordered By: Erica Armenta on 12-15-2022 Lymphocytes/100 WBC (Bld) 10.4 % . [facility] MCH Auto (RBC) [Entitic mass ]Ordered By: Erica Armenta on 12-15-2022 MCH (RBC) [Entitic mass] 28.7 pg 24.7-34.3 [facility] MCHC Auto (RBC) [Mass/Vol]Or dered By: Erica Armenta on 12-15-2022 MCHC (RBC) [Mass/Vol] 31.4 g/dL 32.0-35.0 [facility] MCV Auto (RBC) [Entitic vol] Ordered By: Erica Armenta on 12-15-2022 MCV (RBC) [Entitic vol] 91.4 fL 80-100 F [facility] Magnesiumon 12-15-2022 Magnesium [Mass/Vol] 1.8 mg/dL Low 1.9-2.7 [facility] Comment on above: Result Comment: PERF ORMED BY:[facility] [place] [address] [place], [place] [phone] MEDICAL DIRECTORRAMEZ LARSON M.D. Performed By: #### B MP, CBC, MG ####[facility] [place] [address] [facility] Magnesium [Mass/volume] in S steffanie or PlasmaOrdered By: Erica Armenta on 12-15-2022 Magnesium [Mass/Vol] 1.8 mg/dL 1.9-2.7 [facility] Monocytes Auto (Bld) [#/Vol] Ordered By: Erica Armenta on 12-15-2022 Monocytes (Bld) [#/Vol] 0.9 10*3/uL 0.0-0.8 [facility] Monocytes/100 WBC Auto (Bld) Ordered By: Erica Armenta on 12-15-2022 Monocytes/100 WBC (Bld) 8.5 % . [facility] Neutrophils Auto (Bld) [#/Vo l]Ordered By: Erica Armenta on 12-15-2022 Neutrophils (Bld) [#/Vol] 8.5 10*3/uL 1.8-7.7 [facility] Neutrophils/100 WBC Auto (Bl d)Ordered By: Erica Armenta on 12-15-2022 Neutrophils/100 WBC (Bld) 79.3 % . [facility] No Panel InformationOrdered By: Erica Armenta on 12-15-2022 Bedside Glucose Comment Glu2: cleaned meter [facility] Estimated GFR (CKD-EPI) 9.437 mL/Min [facility] Pharmacy Creatinine Clearance (Chem 9.14 [facility] Nucleated erythrocytes [Pres ence] in Blood by Automated countOrdered By: Erica Armenta on 12-15-2022 Nucleated RBC Auto Ql (Bld) 0.0 /100{WBC} 0-0.5 [facility] Platelet mean volume Auto (B ld) [Entitic vol]Ordered By: Erica Armenta on 12-15-2022 Platelet mean volume (Bld) [Entitic vol] 7.5 fL 6.3-10.7 [facility] Platelets Auto (Bld) [#/Vol] Ordered By: Erica Armenta on 12-15-2022 Platelets (Bld) [#/Vol] 305 10*3/uL 150-450 [facility] Potassium [Moles/volume] in Serum or PlasmaOrdered By: Erica Armenta on 12-15-2022 Potassium [Moles/Vol] 4.4 mmol/L 3.5-5.1 [facility] RBC Auto (Bld) [#/Vol]Ordere d By: Erica Armenta on 12-15-2022 RBC (Bld) [#/Vol] 3.63 10*6/uL 3.60-5.00 [facility] Serum or plasma anion gap de terminationOrdered By: Erica Armenta on 12-15-2022 Anion gap [Moles/Vol] 18.3 mmol/L 6.0-15.0 [facility] Sodium [Moles/volume] in Ser um or PlasmaOrdered By: Erica Armenta on 12-15-2022 Sodium [Moles/Vol] 129 mmol/L 136-145 [facility] Urea nitrogen [Mass/volume] in Serum or PlasmaOrdered By: Erica Armenta on 12-15-2022 Urea nitrogen [Mass/Vol] 70 mg/dL 7-25 [facility] WBC Auto (Bld) [#/Vol]Ordere d By: Erica Armenta on 12-15-2022 WBC (Bld) [#/Vol] 10.7 10*3/uL 3.8-11.6 [facility] Basic Metabolic Panelon 11-0 Anion gap [Moles/Vol] 17.5 mmol/L High 6.0-15.0 [facility] Comment on above: Performed By: #### H S TROP, CBC, BMP ####[facility] [id number] [place] [address] [facility] Calcium [Mass/Vol] 9.1 mg/dL Normal 8.6-10.3 [facility] Comment on above: Performed By: #### H S TROP, CBC, BMP ####[facility] [id number] [place] [address] [facility] Chloride [Moles/Vol] 90 mmol/L Low 98-107 [facility] Comment on above: Performed By: #### H S TROP, CBC, BMP ####[address] [address] [facility] CO2 [Moles/Vol] 25.1 mmol/L Normal 21.0-31.0 [facility] Comment on above: Performed By: #### H S TROP, CBC, BMP ####[address] [place] [address] [facility] Creatinine [Mass/Vol] 3.37 mg/dL High 0.60-1.20 [facility] Comment on above: Performed By: #### H S TROP, CBC, BMP ####[facility] [id number] [place] [address] [place] Creatinine Clr Calc Pharmacy 12.46 [facility] Comment on above: Result Comment: PERF ORMED BY:[address] [place] [phone] MEDICAL DIRECTORRAMEZ LARSON M.D. Performed By: #### H S TROP, CBC, BMP ####[facility] [id number] [place] [address] [place] GFR/1.73 sq M.predicted MDRD (S/P/Bld) [Vol rate/Area] 13.673 mL/min/{1.73_m2} Normal [facility] Comment on above: Performed By: #### H S TROP, CBC, BMP ####[address] [place] [address] [facility] Glucose [Mass/Vol] 317 mg/dL High 70-100 [facility] Comment on above: Result Comment: [facility] Glucose Reference Range is dependent on time and content of last meal. Glucose of more than 200 mg/dL in a nonstressed, ambulatory subject supports the diagnosis of Diabetes Mellitus. ADA recommended reference range Performed By: #### H S TROP, CBC, BMP ####[address] [place] [address] [facility] Potassium [Moles/Vol] 4.6 mmol/L Normal 3.5-5.1 [facility] Comment on above: Performed By: #### H S TROP, CBC, BMP ####[address] [place] [address] [place] Sodium [Moles/Vol] 128 mmol/L Low 136-145 [facility] Comment on above: Performed By: #### H S TROP, CBC, BMP ####[address] [place] [address] [place] Urea nitrogen [Mass/Vol] 51 mg/dL High 7-25 [facility] Comment on above: Performed By: #### H S TROP, CBC, BMP ####[address] [place] [address] [place] Anion gap [Moles/Vol] 23.7 mmol/L High 6.0-15.0 [facility] Comment on above: Performed By: #### B MP, HS TROP, CBC ####[address] [place] [address] [place] Calcium [Mass/Vol] 8.6 mg/dL Normal 8.6-10.3 [facility] Comment on above: Performed By: #### B MP, HS TROP, CBC ####[facility] [id number] [place] [address] [place] Chloride [Moles/Vol] 89 mmol/L Low 98-107 [facility] Comment on above: Performed By: #### B MP, HS TROP, CBC ####[address] [place] [address] [facility] CO2 [Moles/Vol] 21.1 mmol/L Normal 21.0-31.0 [facility] Comment on above: Performed By: #### B MP, HS TROP, CBC ####[facility] [place] [address] [facility] Creatinine [Mass/Vol] 3.15 mg/dL High 0.60-1.20 [facility] Comment on above: Performed By: #### B MP, HS TROP, CBC ####[address] [place] [id number] [facility] Creatinine Clr Calc Pharmacy 13.33 [facility] Comment on above: Result Comment: PERF ORMED BY:[address] [place], [place] [phone] MEDICAL DIRECTORRAMEZ LARSON M.D. Performed By: #### B MP, HS TROP, CBC ####[address] [place] [address] [facility] GFR/1.73 sq M.predicted MDRD (S/P/Bld) [Vol rate/Area] 14.826 mL/min/{1.73_m2} [facility] Comment on above: Performed By: #### B MP, HS TROP, CBC ####[facility] [place] [address] [facility] Glucose [Mass/Vol] 328 mg/dL High 70-100 [facility] Comment on above: Result Comment: [place] Glucose Reference Range is dependent on time and content of last meal. Glucose of more than 200 mg/dL in a nonstressed, ambulatory subject supports the diagnosis of Diabetes Mellitus. ADA recommended reference range Performed By: #### B MP, HS TROP, CBC ####[address] [place] [address] [facility] Potassium [Moles/Vol] 4.8 mmol/L Normal 3.5-5.1 [facility] Comment on above: Performed By: #### B MP, HS TROP, CBC ####[address] [address] [facility] Sodium [Moles/Vol] 129 mmol/L Low 136-145 [facility] Comment on above: Performed By: #### B MP, HS TROP, CBC ####[address] [address] [facility] Urea nitrogen [Mass/Vol] 45 mg/dL High 7-25 [facility] Comment on above: Performed By: #### B MP, HS TROP, CBC ####[address] [address] [facility] Complete Blood Count Auto Di ffon 12-14-2022 Basophils (Bld) [#/Vol] 0.0 10*3/uL Normal 0.0-0.2 [facility] Comment on above: Result Comment: PERF ORMED BY:[address] [place], [place] [phone] MEDICAL MAJOR LARSON M.D. Performed By: #### H S TROP, CBC, BMP ####[address] [address] [facility] Basophils/100 WBC (Bld) 0.3 % Normal . [facility] Comment on above: Performed By: #### H S TROP, CBC, BMP ####[address] [address] [place] Eosinophils (Bld) [#/Vol] 0.0 10*3/uL Normal 0.0-0.45 [facility] Comment on above: Performed By: #### H S TROP, CBC, BMP ####[address] [address] [place] Eosinophils/100 WBC (Bld) 0.0 % Normal . [facility] Comment on above: Performed By: #### H S TROP, CBC, BMP ####[address] Erythrocyte distribution width (RBC) [Ratio] 17.9 % High 11.9-15.3 [facility] Comment on above: Performed By: #### H S TROP, CBC, BMP ####[address] Hematocrit (Bld) [Volume fraction] 32.1 % Low 34.0-46.4 [facility] Comment on above: Performed By: #### H S TROP, CBC, BMP ####[address] Hemoglobin (Bld) [Mass/Vol] 10.2 g/dL Low 11.8-15.4 [facility] Comment on above: Performed By: #### H S TROP, CBC, BMP ####[address] Lymphocytes (Bld) [#/Vol] 1.0 10*3/uL Normal 1.00-4.8 [facility] Comment on above: Performed By: #### H S TROP, CBC, BMP ####[address] Lymphocytes/100 WBC (Bld) 8.7 % Normal . [facility] Comment on above: Performed By: #### H S TROP, CBC, BMP ####[address] MCH (RBC) [Entitic mass] 29.0 pg Normal 24.7-34.3 [facility] Comment on above: Performed By: #### H S TROP, CBC, BMP ####[address] MCV (RBC) [Entitic vol] 91.5 fL Normal 80-100 F [facility] Comment on above: Performed By: #### H S TROP, CBC, BMP ####[address] Mean Corpuscular HGB Conc 31.7 g/dL Low 32.0-35.0 [facility] Comment on above: Performed By: #### H S TROP, CBC, BMP ####[address] Monocytes (Bld) [#/Vol] 0.6 10*3/uL Normal 0.0-0.8 [facility] Comment on above: Performed By: #### H S TROP, CBC, BMP ####[address] Monocytes/100 WBC (Bld) 5.3 % Normal . [facility] Comment on above: Performed By: #### H S TROP, CBC, BMP ####[address] Neutrophils (Bld) [#/Vol] 9.4 10*3/uL High 1.8-7.7 [facility] Comment on above: Performed By: #### H S TROP, CBC, BMP ####[address] Neutrophils/100 WBC (Bld) 85.7 % Normal . [facility] Comment on above: Performed By: #### H S TROP, CBC, BMP ####[address] NRBC% 0.0 /100{WBC} Normal 0-0.5 [facility] Comment on above: Performed By: #### H S TROP, CBC, BMP ####[place] [id number] [facility] Platelet mean volume (Bld) [Entitic vol] 7.8 fL Normal 6.3-10.7 [facility] Comment on above: Performed By: #### H S TROP, CBC, BMP ####[place] [id number] [facility] Platelets (Bld) [#/Vol] 321 10*3/uL Normal 150-450 [facility] Comment on above: Performed By: #### H S TROP, CBC, BMP ####[address] [place] [address] [facility] RBC (Bld) [#/Vol] 3.51 10*6/uL Low 3.60-5.00 [facility] Comment on above: Performed By: #### H S TROP, CBC, BMP ####[address] [address] [facility] WBC (Bld) [#/Vol] 10.9 10*3/uL Normal 3.8-11.6 [facility] Comment on above: Performed By: #### H S TROP, CBC, BMP ####[place] [id number] [facility] Basophils (Bld) [#/Vol] 0.0 10*3/uL Normal 0.0-0.2 [facility] Comment on above: Result Comment: PERF ORMED BY:[address] [place], [place] [phone] MEDICAL DIRECTORRAMEZ LARSON M.D. Performed By: #### B MP, HS TROP, CBC ####[place] [id number] [facility] Basophils/100 WBC (Bld) 0.2 % Normal . [facility] Comment on above: Performed By: #### B MP, HS TROP, CBC ####[place] [id number] [facility] Eosinophils (Bld) [#/Vol] 0.0 10*3/uL Normal 0.0-0.45 [facility] Comment on above: Performed By: #### B MP, HS TROP, CBC ####[place] [id number] [facility] Eosinophils/100 WBC (Bld) 0.0 % Normal . [facility] Comment on above: Performed By: #### B MP, HS TROP, CBC ####[place] [id number] [facility] Erythrocyte distribution width (RBC) [Ratio] 17.4 % High 11.9-15.3 [facility] Comment on above: Performed By: #### B MP, HS TROP, CBC ####[address] Hematocrit (Bld) [Volume fraction] 32.3 % Low 34.0-46.4 [facility] Comment on above: Performed By: #### B MP, HS TROP, CBC ####[address] Hemoglobin (Bld) [Mass/Vol] 10.1 g/dL Low 11.8-15.4 [facility] Comment on above: Performed By: #### B MP, HS TROP, CBC ####[address] Lymphocytes (Bld) [#/Vol] 0.5 10*3/uL Low 1.00-4.8 [facility] Comment on above: Performed By: #### B MP, HS TROP, CBC ####[address] Lymphocytes/100 WBC (Bld) 4.0 % Normal . [facility] Comment on above: Performed By: #### B MP, HS TROP, CBC ####[address] MCH (RBC) [Entitic mass] 28.9 pg Normal 24.7-34.3 [facility] Comment on above: Performed By: #### B MP, HS TROP, CBC ####[address] MCV (RBC) [Entitic vol] 92.5 fL Normal 80-100 F [facility] Comment on above: Performed By: #### B MP, HS TROP, CBC ####[address] Mean Corpuscular HGB Conc 31.3 g/dL Low 32.0-35.0 [facility] Comment on above: Performed By: #### B MP, HS TROP, CBC ####[address] Monocytes (Bld) [#/Vol] 0.4 10*3/uL Normal 0.0-0.8 [facility] Comment on above: Performed By: #### B SHAWN, HS TROP, CBC ####[facility] [id number] [place] [id number] [facility] Monocytes/100 WBC (Bld) 3.2 % Normal . [facility] Comment on above: Performed By: #### B MP, HS TROP, CBC ####[facility] [address] [place] [address] Neutrophils (Bld) [#/Vol] 12.4 10*3/uL High 1.8-7.7 [facility] Comment on above: Performed By: #### B SHAWN, HS TROP, CBC ####[address] Neutrophils/100 WBC (Bld) 92.6 % Normal . [facility] Comment on above: Performed By: #### B SHAWN, HS TROP, CBC ####[address] NRBC% 0.0 /100{WBC} Normal 0-0.5 [facility] Comment on above: Performed By: #### B SHAWN, HS TROP, CBC ####[place] [id number] [facility] Platelet mean volume (Bld) [Entitic vol] 7.7 fL Normal 6.3-10.7 [facility] Comment on above: Performed By: #### B MP, HS TROP, CBC ####[place] [id number] [facility] Platelets (Bld) [#/Vol] 312 10*3/uL Normal 150-450 [facility] Comment on above: Performed By: #### B MP, HS TROP, CBC ####[place] [id number] [facility] RBC (Bld) [#/Vol] 3.50 10*6/uL Low 3.60-5.00 [facility] Comment on above: Performed By: #### B MP, HS TROP, CBC ####[facility] [id number] [place] [address] [facility] WBC (Bld) [#/Vol] 13.4 10*3/uL High 3.8-11.6 [facility] Comment on above: Performed By: #### B MP, HS TROP, CBC ####[facility] [address] [place] [address] [facility] ECH echo transthoracicon ECH echo transthoracic Normal [facility] Glucose Poct Glucometerson 1 02-13-2022 Commemt1 Glu2: Cleaned Meter [facility] Comment on above: Result Comment: PERF ORMED BY:[address] [place], [place] [phone] MEDICAL DIRECTORRAMEZ LARSON M.D. Performed By: #### G LULS ####Point of Care testing, Glucose [Mass/Vol] 225 mg/dL Normal [facility] Comment on above: Result Comment: [facility] Glucose Reference Range is dependent on time and content of last meal. Glucose of more than 200 mg/dL in a nonstressed, ambulatory subject supports the diagnosis of Diabetes Mellitus. Performed By: #### G LULS ####Point of Care testing, Glucose [Mass/Vol] 222 mg/dL Normal [facility] Comment on above: Result Comment: [facility] Glucose Reference Range is dependent on time and content of last meal. Glucose of more than 200 mg/dL in a nonstressed, ambulatory subject supports the diagnosis of Diabetes Mellitus.PERFORMED BY:[place] [address] [place], [place] [phone] MEDICAL DIRECTORRAMEZ LARSON M.D. Performed By: #### G LULS ####Point of Care testing, Commemt1 Glu2: Cleaned Meter [facility] Comment on above: Result Comment: PERF ORMED BY:[place] [address] [address] [place], [place] [phone] MEDICAL MAJOR LARSON M.D. Performed By: #### G LULS ####Point of Care testing, Glucose [Mass/Vol] 233 mg/dL Normal [facility] Comment on above: Result Comment: [place] [facility] Glucose Reference Range is dependent on time and content of last meal. Glucose of more than 200 mg/dL in a nonstressed, ambulatory subject supports the diagnosis of Diabetes Mellitus. Performed By: #### G LULS ####Point of Care testing, Commemt1 Glu2: Cleaned Meter Normal [facility] Comment on above: Result Comment: PERF ORMED BY:[address] [place]NDONLuciaJARET[place], [place] [phone] MEDICAL DIRECTORRAMEZ LARSON M.D. Performed By: #### G LULS ####Point of Care testing, Glucose [Mass/Vol] 249 mg/dL Normal [facility] Comment on above: Result Comment: [place] [facility] Glucose Reference Range is dependent on time and content of last meal. Glucose of more than 200 mg/dL in a nonstressed, ambulatory subject supports the diagnosis of Diabetes Mellitus. Performed By: #### G LULS ####Point of Care testing, Troponin I High Sensitivityo n 12-14-2022 Troponin I High Sensitivity 48.8 pg/mL High 0.0-15.0 [facility] Comment on above: Result Comment: PERF ORMED BY:[address] [place]ORDOVALanreJARETT, [place] [phone] MEDICAL DIRECTORRAMEZ LARSON M.D. Performed By: #### H S TROP, CBC, BMP ####[place] [id number] [facility] Troponin I High Sensitivity 36.2 pg/mL High 0.0-15.0 [facility] Comment on above: Result Comment: PERF ORMED BY:[address] [place]NDONLuciaJARETT, [place] [phone] MEDICAL MAJOR LARSON M.D. Performed By: #### B MP, HS TROP, CBC ####[place] [id number] [facility] Troponin I.cardiac [Mass/vol ume] in Serum or Plasma by Detection limit <= 0.01 ng/Ordered By: Jamal Schaefer on 12-14-2022 Troponin I.cardiac DL <= 0.01 ng/mL [Mass/Vol] 48.8 pg/mL 0.0-15.0 [facility] ECG 12 lead ECGon 12-13-2022 ECG 12 lead ECG Normal [facility] Basic Metabolic Panelon 11-12 Anion gap [Moles/Vol] 17.7 mmol/L High 6.0-15.0 [facility] Comment on above: Performed By: #### C BC MG, BMP ####[place] [address] Calcium [Mass/Vol] 9.5 mg/dL Normal 8.6-10.3 [facility] Comment on above: Performed By: #### C BC MG, BMP ####[address] Chloride [Moles/Vol] 88 mmol/L Low 98-107 [facility] Comment on above: Performed By: #### C BC MG, BMP ####[address] CO2 [Moles/Vol] 26.7 mmol/L Normal 21.0-31.0 [facility] Comment on above: Performed By: #### C BC MG, BMP ####[address] Creatinine [Mass/Vol] 5.27 mg/dL Significan t change up 0.60-1.20 [facility] Comment on above: Performed By: #### C BC MG, BMP ####[place] [id number] [facility] Creatinine Clr Calc Pharmacy 7.96 [facility] Comment on above: Performed By: #### C BC, MG, BMP ####[address] GFR/1.73 sq M.predicted MDRD (S/P/Bld) [Vol rate/Area] 7.995 mL/min/{1.73_m2} Normal [facility] Comment on above: Performed By: #### C REBECCA MG, BMP ####[facility] Glucose [Mass/Vol] 200 mg/dL High 70-100 [facility] Comment on above: Result Comment: [place] Glucose Reference Range is dependent on time and content of last meal. Glucose of more than 200 mg/dL in a nonstressed, ambulatory subject supports the diagnosis of Diabetes Mellitus. ADA recommended reference range Performed By: #### C MG REBECCA, BMP ####[facility] Potassium [Moles/Vol] 4.4 mmol/L Normal 3.5-5.1 [facility] Comment on above: Performed By: #### C MG REBECCA, BMP ####[place] [address] Sodium [Moles/Vol] 128 mmol/L Low 136-145 [facility] Comment on above: Performed By: #### C REBECCA MG, BMP ####[place] [address] Urea nitrogen [Mass/Vol] 73 mg/dL High 7-25 [facility] Comment on above: Performed By: #### C REBECCA MG, BMP ####[place] [address] Basophils Auto (Bld) [#/Vol] Ordered By: Pennie Love on 12-09-2022 Basophils (Bld) [#/Vol] 0.0 10*3/uL 0.0-0.2 [facility] Basophils/100 WBC Auto (Bld) Ordered By: Pennie Love on 12-09-2022 Basophils/100 WBC (Bld) 0.5 % . [facility] Calcium [Mass/volume] in Ser um or PlasmaOrdered By: Pennie Love on 12-09-2022 Calcium [Mass/Vol] 9.5 mg/dL 8.6-10.3 [facility] Carbon dioxide, total [Moles /volume] in Serum or PlasmaOrdered By: Pennie Love on 12-09-2022 CO2 [Moles/Vol] 26.7 mmol/L 21.0-31.0 [facility] Chloride [Moles/volume] in S steffanie or PlasmaOrdered By: Pennie Love on 12-09-2022 Chloride [Moles/Vol] 88 mmol/L 98-107 [facility] Complete Blood Count Auto Di ffon 12-09-2022 Basophils (Bld) [#/Vol] 0.0 10*3/uL Normal 0.0-0.2 [facility] Comment on above: Result Comment: PERF ORMED BY:[address] [place], [place] [phone] MEDICAL DIRECTORRAMEZ LARSON M.D. Performed By: #### C MG REBECCA, BMP ####[address] Basophils/100 WBC (Bld) 0.5 % Normal . F [facility] Comment on above: Performed By: #### C MG REBECCA, BMP ####[address] Eosinophils (Bld) [#/Vol] 0.1 10*3/uL Normal 0.0-0.45 [facility] Comment on above: Performed By: #### C MG REBECCA, BMP ####[address] Eosinophils/100 WBC (Bld) 1.4 % Normal . [facility] Comment on above: Performed By: #### C MG REBECCA, BMP ####[address] Erythrocyte distribution width (RBC) [Ratio] 17.5 % High 11.9-15.3 [facility] Comment on above: Performed By: #### C MG REBECCA, BMP ####[address] Hematocrit (Bld) [Volume fraction] 34.5 % Normal 34.0-46.4 [facility] Comment on above: Performed By: #### C MG REBECCA, BMP ####[address] Hemoglobin (Bld) [Mass/Vol] 10.8 g/dL Low 11.8-15.4 [facility] Comment on above: Performed By: #### C MG REBECCA, BMP ####[address] Lymphocytes (Bld) [#/Vol] 1.4 10*3/uL Normal 1.00-4.8 [facility] Comment on above: Performed By: #### C MG REBECCA, BMP ####[address] Lymphocytes/100 WBC (Bld) 13.7 % Normal . [facility] Comment on above: Performed By: #### C MG REBECCA, BMP ####[address] MCH (RBC) [Entitic mass] 28.6 pg Normal 24.7-34.3 [facility] Comment on above: Performed By: #### C MG REBECCA, BMP ####[address] MCV (RBC) [Entitic vol] 91.3 fL Normal 80-100 F [facility] Comment on above: Performed By: #### C MG REBECCA, BMP ####[address] Mean Corpuscular HGB Conc 31.3 g/dL Low 32.0-35.0 [facility] Comment on above: Performed By: #### C MG REBECCA, BMP ####[address] Monocytes (Bld) [#/Vol] 0.7 10*3/uL Normal 0.0-0.8 [facility] Comment on above: Performed By: #### C REBECCA MG, BMP ####[facility] [id number] [place] [address] [facility] Monocytes/100 WBC (Bld) 6.8 % Normal . F [facility] Comment on above: Performed By: #### C BC, MG, BMP ####[facility] [place] [address] [facility] Neutrophils (Bld) [#/Vol] 8.1 10*3/uL High 1.8-7.7 [facility] Comment on above: Performed By: #### C BC, MG, BMP ####[place] [address] [place] [address] [facility] Neutrophils/100 WBC (Bld) 77.6 % Normal . [facility] Comment on above: Performed By: #### C BC, MG, BMP ####[place] [address] [place] [address] [facility] NRBC% 0.0 /100{WBC} Normal 0-0.5 [facility] Comment on above: Performed By: #### C BC, MG, BMP ####[place] [address] [place] [address] [facility] Platelet mean volume (Bld) [Entitic vol] 7.4 fL Normal 6.3-10.7 [facility] Comment on above: Performed By: #### C BC, MG, BMP ####[place] [address] [place] [address] [facility] Platelets (Bld) [#/Vol] 405 10*3/uL Normal 150-450 [facility] Comment on above: Performed By: #### C BC, MG, BMP ####[place] [address] [place] [address] [place] RBC (Bld) [#/Vol] 3.77 10*6/uL Normal 3.60-5.00 [facility] Comment on above: Performed By: #### C BC, MG, BMP ####[place] [address] [place] [address] [place] WBC (Bld) [#/Vol] 10.4 10*3/uL Normal 3.8-11.6 [facility] Comment on above: Performed By: #### C BC, MG, BMP ####[facility] [id number] [place] [address] [facility] Creatinine [Mass/volume] in Serum or PlasmaOrdered By: Pennie Love on 12-09-2022 Creatinine [Mass/Vol] 5.27 mg/dL 0.60-1.20 [facility] Comment on above: Delta: 4.34 on 12/08-442 Eosinophils Auto (Bld) [#/Vo l]Ordered By: Pennie Love on 12-09-2022 Eosinophils (Bld) [#/Vol] 0.1 10*3/uL 0.0-0.45 [facility] Eosinophils/100 WBC Auto (Bl d)Ordered By: Pennie Love on 12-09-2022 Eosinophils/100 WBC (Bld) 1.4 % . [facility] Erythrocyte distribution wid th Auto (RBC) [Ratio]Ordered By: Pennie Love on 12-09-2022 Erythrocyte distribution width (RBC) [Ratio] 17.5 % 11.9-15.3 [facility] Glucose Glucometer (BldC) [M ass/Vol]Ordered By: Teresa Pagan on 12-09-2022 Glucose [Mass/Vol] 282 mg/dL [facility] Comment on above: Random Glucose Refer ence Range is dependent on time and content of last meal. Glucose of more than 200 mg/dL in a nonstressed, ambulatory subject supports the diagnosis of Diabetes Mellitus. Glucose Poct Glucometerson 1 Glucose [Mass/Vol] 282 mg/dL Normal [facility] Comment on above: Result Comment: [place] Glucose Reference Range is dependent on time and content of last meal. Glucose of more than 200 mg/dL in a nonstressed, ambulatory subject supports the diagnosis of Diabetes Mellitus.PERFORMED BY:[facility] [place] [place], [place] [phone] MEDICAL DIRECTORRAMEZ LARSON M.D. Performed By: #### G LULS ####Point of Care testing, Glucose [Mass/Vol] 172 mg/dL Normal [facility] Comment on above: Result Comment: [place] [facility] Glucose Reference Range is dependent on time and content of last meal. Glucose of more than 200 mg/dL in a nonstressed, ambulatory subject supports the diagnosis of Diabetes Mellitus.PERFORMED BY:[facility] [place] [phone] MEDICAL DIRECTORRAMEZ LARSON M.D. Performed By: #### G LULS ####Point of Care testing, Glucose [Mass/Vol] 210 mg/dL Normal [facility] Comment on above: Result Comment: [place] [facility] Glucose Reference Range is dependent on time and content of last meal. Glucose of more than 200 mg/dL in a nonstressed, ambulatory subject supports the diagnosis of Diabetes Mellitus.PERFORMED BY:[place] [address] [place] [phone] MEDICAL DIRECTORRAMEZ LARSON M.D. Performed By: #### G LUANNITA ####Point of Care testing, Glucose [Mass/volume] in Ser um or PlasmaOrdered By: Pennie Love on 12-09-2022 Glucose [Mass/Vol] 200 mg/dL 70-100 [facility] Comment on above: ADA recommended refe rence rangeRandom Glucose Reference Range is dependent on time and content of last meal. Glucose of more than 200 mg/dL in a nonstressed, ambulatory subject supports the diagnosis of Diabetes Mellitus. Hematocrit Auto (Bld) [Volum e fraction]Ordered By: Pennie Love on 12-09-2022 Hematocrit (Bld) [Volume fraction] 34.5 % 34.0-46.4 [facility] Hemoglobin [Mass/volume] in BloodOrdered By: Pennie Love on 12-09-2022 Hemoglobin (Bld) [Mass/Vol] 10.8 g/dL 11.8-15.4 [facility] Leukocytes [#/volume] correc tr for nucleated erythrocytes in Blood by Automated counOrdered By: Pennie Love on 12-09-2022 WBC corrected for nucl RBC Auto (Bld) [#/Vol] 10.4 10*3/uL 3.8-11.6 [facility] Lymphocytes Auto (Bld) [#/Vo l]Ordered By: Pennie Love on 12-09-2022 Lymphocytes (Bld) [#/Vol] 1.4 10*3/uL 1.00-4.8 [facility] Lymphocytes/100 WBC Auto (Bl d)Ordered By: Pennie Love on 12-09-2022 Lymphocytes/100 WBC (Bld) 13.7 % . [facility] MCH Auto (RBC) [Entitic mass ]Ordered By: Pennie Love on 12-09-2022 MCH (RBC) [Entitic mass] 28.6 pg 24.7-34.3 [facility] MCHC Auto (RBC) [Mass/Vol]Or dered By: Pennie Love on 12-09-2022 MCHC (RBC) [Mass/Vol] 31.3 g/dL 32.0-35.0 [facility] MCV Auto (RBC) [Entitic vol] Ordered By: Pennie Love on 12-09-2022 MCV (RBC) [Entitic vol] 91.3 fL 80-100 [facility] Magnesiumon 12-09-2022 Magnesium [Mass/Vol] 1.9 mg/dL Normal 1.9-2.7 [facility] Comment on above: Result Comment: PERF ORMED BY:[address] [place], [place] [phone] MEDICAL DIRECTORRAMEZ LARSON M.D. Performed By: #### C BC, MG, BMP ####[facility] [place] [address] [facility] Magnesium [Mass/volume] in S steffanie or PlasmaOrdered By: Pennie Love on 12-09-2022 Magnesium [Mass/Vol] 1.9 mg/dL 1.9-2.7 [facility] Monocytes Auto (Bld) [#/Vol] Ordered By: Pennie Love on 12-09-2022 Monocytes (Bld) [#/Vol] 0.7 10*3/uL 0.0-0.8 [facility] Monocytes/100 WBC Auto (Bld) Ordered By: Pennie Love on 12-09-2022 Monocytes/100 WBC (Bld) 6.8 % . [facility] Neutrophils Auto (Bld) [#/Vo l]Ordered By: Pennie Love on 12-09-2022 Neutrophils (Bld) [#/Vol] 8.1 10*3/uL 1.8-7.7 [facility] Neutrophils/100 WBC Auto (Bl d)Ordered By: Pennie Love on 12-09-2022 Neutrophils/100 WBC (Bld) 77.6 % . [facility] No Panel InformationOrdered By: Pennei Love on 12-09-2022 Estimated GFR (CKD-EPI) 7.995 mL/Min [facility] Pharmacy Creatinine Clearance (Chem 7.96 [facility] Nucleated erythrocytes [Pres ence] in Blood by Automated countOrdered By: Pennie Love on 12-09-2022 Nucleated RBC Auto Ql (Bld) 0.0 /100{WBC} 0-0.5 [facility] Platelet mean volume Auto (B ld) [Entitic vol]Ordered By: Pennie Love on 12-09-2022 Platelet mean volume (Bld) [Entitic vol] 7.4 fL 6.3-10.7 [facility] Platelets Auto (Bld) [#/Vol] Ordered By: Pennie Love on 12-09-2022 Platelets (Bld) [#/Vol] 405 10*3/uL 150-450 [facility] Potassium [Moles/volume] in Serum or PlasmaOrdered By: Pennie Love on 12-09-2022 Potassium [Moles/Vol] 4.4 mmol/L 3.5-5.1 [facility] RBC Auto (Bld) [#/Vol]Ordere d By: Pennie Love on 12-09-2022 RBC (Bld) [#/Vol] 3.77 10*6/uL 3.60-5.00 [facility] Serum or plasma anion gap de terminationOrdered By: Pennie Love on 12-09-2022 Anion gap [Moles/Vol] 17.7 mmol/L 6.0-15.0 [facility] Sodium [Moles/volume] in Ser um or PlasmaOrdered By: Pennie Love on 12-09-2022 Sodium [Moles/Vol] 128 mmol/L 136-145 [facility] Urea nitrogen [Mass/volume] in Serum or PlasmaOrdered By: Pennie Love on 12-09-2022 Urea nitrogen [Mass/Vol] 73 mg/dL 7- [facility] WBC Auto (Bld) [#/Vol]Ordere d By: Pennie Love on 12-09-2022 WBC (Bld) [#/Vol] 10.4 10*3/uL 3.8-11.6 [facility] Basic Metabolic Panelon 11-11 Anion gap [Moles/Vol] 17.9 mmol/L High 6.0-15.0 [facility] Comment on above: Performed By: #### C BC, BMP, MG, HS TROP ####[facility] [address] [place] [address] [facility] Calcium [Mass/Vol] 9.4 mg/dL Normal 8.6-10.3 [facility] Comment on above: Performed By: #### C BC, BMP, MG, HS TROP ####[place] [address] [place] [address] [facility] Chloride [Moles/Vol] 92 mmol/L Low 98-107 [facility] Comment on above: Performed By: #### C BC, BMP, MG, HS TROP ####[facility] [id number] [place] [address] [facility] CO2 [Moles/Vol] 25.3 mmol/L Normal 21.0-31.0 [facility] Comment on above: Performed By: #### C BC, BMP, MG, HS TROP ####[facility] [id number] [place] [address] [place] Creatinine [Mass/Vol] 4.34 mg/dL Significan t change up 0.60-1.20 [facility] Comment on above: Performed By: #### C BC, BMP, MG, HS TROP ####[facility] [address] [place] [address] [place] Creatinine Clr Calc Pharmacy 9.67 Normal [facility] Comment on above: Performed By: #### C BC, BMP, MG, HS TROP ####[place] [address] GFR/1.73 sq M.predicted MDRD (S/P/Bld) [Vol rate/Area] 10.093 mL/min/{1.73_m2} [facility] Comment on above: Performed By: #### C BC, BMP, MG, HS TROP ####[place] [address] Glucose [Mass/Vol] 179 mg/dL High 70-100 [facility] Comment on above: Result Comment: [facility] Glucose Reference Range is dependent on time and content of last meal. Glucose of more than 200 mg/dL in a nonstressed, ambulatory subject supports the diagnosis of Diabetes Mellitus. ADA recommended reference range Performed By: #### C BC, BMP, MG, HS TROP ####[place] [address] Potassium [Moles/Vol] 4.2 mmol/L Normal 3.5-5.1 [facility] Comment on above: Performed By: #### C BC, BMP, MG, HS TROP ####[place] [id number] [facility] Sodium [Moles/Vol] 131 mmol/L Low 136-145 [facility] Comment on above: Performed By: #### C BC, BMP, MG, HS TROP ####[place] [id number] [facility] Urea nitrogen [Mass/Vol] 59 mg/dL High 7-25 [facility] Comment on above: Performed By: #### C BC, BMP, MG, HS TROP ####[place] [address] [place] [id number] [facility] Complete Blood Count Auto Di ffon 12-08-2022 Basophils (Bld) [#/Vol] 0.0 10*3/uL Normal 0.0-0.2 [facility] Comment on above: Result Comment: PERF ORMED BY:[address], [place] [phone] MEDICAL DIRECTORRAMEZ LARSON M.D. Performed By: #### C BC, BMP, MG, HS TROP ####[place] [id number] [facility] Basophils/100 WBC (Bld) 0.2 % Normal . [facility] Comment on above: Performed By: #### C BC, BMP, MG, HS TROP ####[address] Eosinophils (Bld) [#/Vol] 0.1 10*3/uL Normal 0.0-0.45 [facility] Comment on above: Performed By: #### C BC, BMP, MG, HS TROP ####[address] Eosinophils/100 WBC (Bld) 0.7 % Normal . [facility] Comment on above: Performed By: #### C BC, BMP, MG, HS TROP ####[address] Erythrocyte distribution width (RBC) [Ratio] 17.1 % High 11.9-15.3 [facility] Comment on above: Performed By: #### C BC, BMP, MG, HS TROP ####[place] [id number] [facility] Hematocrit (Bld) [Volume fraction] 33.4 % Low 34.0-46.4 [facility] Comment on above: Performed By: #### C BC, BMP, MG, HS TROP ####[place] [address] [facility] Hemoglobin (Bld) [Mass/Vol] 10.7 g/dL Low 11.8-15.4 [facility] Comment on above: Performed By: #### C BC, BMP, MG, HS TROP ####[place] [id number] [facility] Lymphocytes (Bld) [#/Vol] 1.6 10*3/uL Normal 1.00-4.8 [facility] Comment on above: Performed By: #### C BC, BMP, MG, HS TROP ####[address] Lymphocytes/100 WBC (Bld) 16.3 % Normal . [facility] Comment on above: Performed By: #### C BC, BMP, MG, HS TROP ####[address] MCH (RBC) [Entitic mass] 29.4 pg Normal 24.7-34.3 [facility] Comment on above: Performed By: #### C BC, BMP, MG, HS TROP ####[address] MCV (RBC) [Entitic vol] 91.9 fL Normal 80-100 F [facility] Comment on above: Performed By: #### C BC, BMP, MG, HS TROP ####[address] Mean Corpuscular HGB Conc 32.0 g/dL Normal 32.0-35.0 [facility] Comment on above: Performed By: #### C BC, BMP, MG, HS TROP ####[address] Monocytes (Bld) [#/Vol] 1.0 10*3/uL High 0.0-0.8 [facility] Comment on above: Performed By: #### C BC, BMP, MG, HS TROP ####[address] Monocytes/100 WBC (Bld) 9.7 % Normal . [facility] Comment on above: Performed By: #### C BC, BMP, MG, HS TROP ####[address] Neutrophils (Bld) [#/Vol] 7.2 10*3/uL Normal 1.8-7.7 [facility] Comment on above: Performed By: #### C BC, BMP, MG, HS TROP ####[facility] [place] [address] [facility] Neutrophils/100 WBC (Bld) 73.1 % Normal . [facility] Comment on above: Performed By: #### C BC, BMP, MG, HS TROP ####[facility] [place] [address] [facility] NRBC% 0.0 /100{WBC} Normal 0-0.5 [facility] Comment on above: Performed By: #### C BC, BMP, MG, HS TROP ####[address] [place] [address] [facility] Platelet mean volume (Bld) [Entitic vol] 7.4 fL Normal 6.3-10.7 [facility] Comment on above: Performed By: #### C BC, BMP, MG, HS TROP ####[address] [address] [facility] Platelets (Bld) [#/Vol] 377 10*3/uL Normal 150-450 [facility] Comment on above: Performed By: #### C BC, BMP, MG, HS TROP ####[address] [address] [facility] RBC (Bld) [#/Vol] 3.64 10*6/uL Normal 3.60-5.00 [facility] Comment on above: Performed By: #### C BC, BMP, MG, HS TROP ####[address] [address] [facility] WBC (Bld) [#/Vol] 9.8 10*3/uL Normal 3.8-11.6 [facility] Comment on above: Performed By: #### C BC, BMP, MG, HS TROP ####[address] [address] [facility] Glucose Poct Glucometerson Glucose [Mass/Vol] 294 mg/dL Normal [facility] Comment on above: Result Comment: [place] Glucose Reference Range is dependent on time and content of last meal. Glucose of more than 200 mg/dL in a nonstressed, ambulatory subject supports the diagnosis of Diabetes Mellitus.PERFORMED BY:[address] [address] [place] [place], [place] [phone] MEDICAL MAJOR LARSON M.D. Performed By: #### G LULS ####Point of Care testing, Glucose [Mass/Vol] 334 mg/dL Normal [facility] Comment on above: Result Comment: [facility] Glucose Reference Range is dependent on time and content of last meal. Glucose of more than 200 mg/dL in a nonstressed, ambulatory subject supports the diagnosis of Diabetes Mellitus.PERFORMED BY:[address] [place], [place] [phone] MEDICAL DIRECTORRAMEZ LARSON M.D. Performed By: #### G LULS ####Point of Care testing, Glucose [Mass/Vol] 236 mg/dL Normal [facility] Comment on above: Result Comment: [facility] Glucose Reference Range is dependent on time and content of last meal. Glucose of more than 200 mg/dL in a nonstressed, ambulatory subject supports the diagnosis of Diabetes Mellitus.PERFORMED BY:[address] [place], [place] [phone] MEDICAL MAJOR LARSON M.D. Performed By: #### G LULS ####Point of Care testing, Glucose [Mass/Vol] 179 mg/dL Normal [facility] Comment on above: Result Comment: [facility] Glucose Reference Range is dependent on time and content of last meal. Glucose of more than 200 mg/dL in a nonstressed, ambulatory subject supports the diagnosis of Diabetes Mellitus.PERFORMED BY:[address] [address] [address] [place], [place] [phone] MEDICAL MAJOR LARSON M.D. Performed By: #### G LULS ####Point of Care testing, Magnesiumon 12-08-2022 Magnesium [Mass/Vol] 2.0 mg/dL Normal 1.9-2.7 [facility] Comment on above: Result Comment: PERF ORMED BY:[address] [address] [place], [place] [phone] MEDICAL DIRECTORRAMEZ LARSON M.D. Performed By: #### C BC, BMP, MG, HS TROP ####[address] [place] [address] [facility] Troponin I High Sensitivityo n 12-08-2022 Troponin I High Sensitivity 23.4 pg/mL High 0.0-15.0 [facility] Comment on above: Result Comment: PERF ORMED BY:[address] [address] [place] [place], [place] [phone] MEDICAL DIRECTORRAMEZ LARSON M.D. Performed By: #### C BC, BMP, MG, HS TROP ####[address] [place] [address] [facility] Troponin I.cardiac [Mass/vol ume] in Serum or Plasma by Detection limit <= 0.01 ng/Ordered By: Pennie Love on 12-08-2022 Troponin I.cardiac DL <= 0.01 ng/mL [Mass/Vol] 23.4 pg/mL 0.0-15.0 [facility] Basic Metabolic Panelon 11-11 Anion gap [Moles/Vol] 16.0 mmol/L High 6.0-15.0 [facility] Comment on above: Performed By: #### C BC, BMP, MG ####[address] [address] [facility] Calcium [Mass/Vol] 9.5 mg/dL Normal 8.6-10.3 [facility] Comment on above: Performed By: #### C BC, BMP, MG ####[address] [place] [address] [facility] Chloride [Moles/Vol] 92 mmol/L Low 98-107 [facility] Comment on above: Performed By: #### C BC, BMP, MG ####[address] [place] [address] [facility] CO2 [Moles/Vol] 28.9 mmol/L Normal 21.0-31.0 [facility] Comment on above: Performed By: #### C BC, BMP, MG ####[facility] [place] [address] [facility] Creatinine [Mass/Vol] 3.15 mg/dL Significan t change up 0.60-1.20 [facility] Comment on above: Performed By: #### C BC, BMP, MG ####[facility] [id number] [place] [address] [place] Creatinine Clr Calc Pharmacy 13.33 [facility] Comment on above: Performed By: #### C BC, BMP, MG ####[address] [place] [address] [place] GFR/1.73 sq M.predicted MDRD (S/P/Bld) [Vol rate/Area] 14.826 mL/min/{1.73_m2} [facility] Comment on above: Performed By: #### C BC, BMP, MG ####[address] [place] [id number] [facility] Glucose [Mass/Vol] 240 mg/dL High 70-100 [facility] Comment on above: Result Comment: [place] Glucose Reference Range is dependent on time and content of last meal. Glucose of more than 200 mg/dL in a nonstressed, ambulatory subject supports the diagnosis of Diabetes Mellitus. ADA recommended reference range Performed By: #### C BC, BMP, MG ####[address] [place] [id number] [facility] Potassium [Moles/Vol] 3.9 mmol/L Normal 3.5-5.1 [facility] Comment on above: Performed By: #### C BC, BMP, MG ####[address] [place] [address] [place] Sodium [Moles/Vol] 133 mmol/L Low 136-145 [facility] Comment on above: Performed By: #### C BC, BMP, MG ####[facility] [place] [address] [facility] Urea nitrogen [Mass/Vol] 35 mg/dL High 7-25 [facility] Comment on above: Performed By: #### C BC, BMP, MG ####[address] [address] [facility] Complete Blood Count Auto Di ffon 12-07-2022 Basophils (Bld) [#/Vol] 0.0 10*3/uL Normal 0.0-0.2 [facility] Comment on above: Result Comment: PERF ORMED BY:[address] [place], [place] [phone] MEDICAL DIRECTORRAMEZ LARSON M.D. Performed By: #### C BC, BMP, MG ####[id number] [facility] Basophils/100 WBC (Bld) 0.1 % Normal . [facility] Comment on above: Performed By: #### C BC, BMP, MG ####[address] [id number] [facility] Eosinophils (Bld) [#/Vol] 0.0 10*3/uL Normal 0.0-0.45 [facility] Comment on above: Performed By: #### C BC, BMP, MG ####[address] Eosinophils/100 WBC (Bld) 0.0 % Normal . [facility] Comment on above: Performed By: #### C BC, BMP, MG ####[id number] [facility] Erythrocyte distribution width (RBC) [Ratio] 17.2 % High 11.9-15.3 [facility] Comment on above: Performed By: #### C BC, BMP, MG ####[id number] [facility] Hematocrit (Bld) [Volume fraction] 35.5 % Normal 34.0-46.4 [facility] Comment on above: Performed By: #### C BC, BMP, MG ####[id number] [facility] Hemoglobin (Bld) [Mass/Vol] 11.2 g/dL Low 11.8-15.4 [facility] Comment on above: Performed By: #### C BC, BMP, MG ####[address] Lymphocytes (Bld) [#/Vol] 0.9 10*3/uL Low 1.00-4.8 [facility] Comment on above: Performed By: #### C BC, BMP, MG ####[address] Lymphocytes/100 WBC (Bld) 9.7 % Normal . [facility] Comment on above: Performed By: #### C BC, BMP, MG ####[address] MCH (RBC) [Entitic mass] 29.0 pg Normal 24.7-34.3 [facility] Comment on above: Performed By: #### C BC, BMP, MG ####[address] MCV (RBC) [Entitic vol] 92.1 fL Normal 80-100 [facility] Comment on above: Performed By: #### C BC BMP, MG ####[address] Mean Corpuscular HGB Conc 31.5 g/dL Low 32.0-35.0 [facility] Comment on above: Performed By: #### C BC, BMP, MG ####[address] Monocytes (Bld) [#/Vol] 0.8 10*3/uL Normal 0.0-0.8 [facility] Comment on above: Performed By: #### C BC, BMP, MG ####[address] Monocytes/100 WBC (Bld) 8.5 % Normal . [facility] Comment on above: Performed By: #### C BC, BMP, MG ####[address] Neutrophils (Bld) [#/Vol] 7.8 10*3/uL High 1.8-7.7 [facility] Comment on above: Performed By: #### CHELSI AGUILAR, MG ####[address] [id number] [facility] Neutrophils/100 WBC (Bld) 81.7 % Normal . [facility] Comment on above: Performed By: #### C CHELSI FERNANDEZ, MG ####[address] [place] [id number] [facility] NRBC% 0.1 /100{WBC} Normal 0-0.5 [facility] Comment on above: Performed By: #### C CHELSI FERNANDEZ, MG ####[address] [place] Platelet mean volume (Bld) [Entitic vol] 7.3 fL Normal 6.3-10.7 [facility] Comment on above: Performed By: #### CHELSI AGUILAR, MG ####[address] Platelets (Bld) [#/Vol] 387 10*3/uL Normal 150-450 [facility] Comment on above: Performed By: #### CHELSI AGUILAR, MG ####[address] RBC (Bld) [#/Vol] 3.86 10*6/uL Normal 3.60-5.00 [facility] Comment on above: Performed By: #### C REBECCA BMP, MG ####[id number] [facility] WBC (Bld) [#/Vol] 9.5 10*3/uL Normal 3.8-11.6 [facility] Comment on above: Performed By: #### Tara FERNANDEZ BMP, MG ####[place] [id number] [facility] ECG 12 lead ECGon 12-07-2022 ECG 12 lead ECG Normal [facility] Glucose Poct Glucometerson 1 Glucose [Mass/Vol] 250 mg/dL Normal [facility] Comment on above: Result Comment: [facility] Glucose Reference Range is dependent on time and content of last meal. Glucose of more than 200 mg/dL in a nonstressed, ambulatory subject supports the diagnosis of Diabetes Mellitus.PERFORMED BY:[address] [place], [place] [phone] MEDICAL DIRECTORRAMEZ LARSON M.D. Performed By: #### G LULS ####Point of Care testing, Glucose [Mass/Vol] 276 mg/dL Normal [facility] Comment on above: Result Comment: [facility] Glucose Reference Range is dependent on time and content of last meal. Glucose of more than 200 mg/dL in a nonstressed, ambulatory subject supports the diagnosis of Diabetes Mellitus.PERFORMED BY:[address] [place], [place] [phone] MEDICAL MAJOR LARSON M.D. Performed By: #### G LULS ####Point of Care testing, Glucose [Mass/Vol] 209 mg/dL Normal [facility] Comment on above: Result Comment: [facility] Glucose Reference Range is dependent on time and content of last meal. Glucose of more than 200 mg/dL in a nonstressed, ambulatory subject supports the diagnosis of Diabetes Mellitus.PERFORMED BY:[address] [place]ONLuciaJAR[place], [place] [phone] MEDICAL MAJOR LARSON M.D. Performed By: #### G LULS ####Point of Care testing, Glucose [Mass/Vol] 229 mg/dL Normal [facility] Comment on above: Result Comment: [facility] Glucose Reference Range is dependent on time and content of last meal. Glucose of more than 200 mg/dL in a nonstressed, ambulatory subject supports the diagnosis of Diabetes Mellitus.PERFORMED BY:[address] [place], [place] [phone] MEDICAL MAJOR LARSON M.D. Performed By: #### G LULS ####Point of Care testing, Magnesiumon 12-07-2022 Magnesium [Mass/Vol] 2.0 mg/dL Normal 1.9-2.7 [facility] Comment on above: Result Comment: PERF ORMED BY:[address] [address] [address] [place]ONLuciaJARET[place]MC[place], [place] [phone] MEDICAL DIRECTORRAMEZ LARSON M.D. Performed By: #### C BC, BMP, MG ####[address] [place] [address] [facility] Activated partial thrombopla stin time (aPTT) in platelet poor plasma by coagulation aOrdered By: Yusra Santoyo on 12-06-2022 aPTT Coag (PPP) [Time] 29.3 s 25.1-36.5 [facility] Comment on above: A hematocrit value g reater than 55% may lead to inaccurate results in coagulation testing. Patients having hematocrit values >55% require a special collection tube for coagulation studies. Please contact the laboratory at [phone] for redraw instructions. B-Type Natriuretic Peptideon 12-06-2022 Natriuretic peptide B (Bld) [Mass/Vol] 950.0 pg/mL High 5-100 [facility] Comment on above: Result Comment: PERF ORMED BY:[address] [place]HAElLuciaJARET[place]MC[place], [place] [phone] MEDICAL DIRECTORRAMEZ LARSON M.D. Performed By: #### P T, PTT, BMP, BNP, HS TROP, MG, CBC ####[address] [place] [address] [facility] Basic Metabolic Panelon 11-11 Anion gap [Moles/Vol] 16.7 mmol/L High 6.0-15.0 [facility] Comment on above: Performed By: #### P T, PTT, BMP, BNP, HS TROP, MG, CBC ####[address] [place] [address] [facility] Calcium [Mass/Vol] 9.8 mg/dL Normal 8.6-10.3 [facility] Comment on above: Performed By: #### P T, PTT, BMP, BNP, HS TROP, MG, CBC ####[address] [place] [id number] [facility] Chloride [Moles/Vol] 91 mmol/L Low 98-107 [facility] Comment on above: Performed By: #### P T, PTT, BMP, BNP, HS TROP, MG, CBC ####[address] CO2 [Moles/Vol] 27.9 mmol/L Normal 21.0-31.0 [facility] Comment on above: Performed By: #### P T, PTT, BMP, BNP, HS TROP, MG, CBC ####[address] Creatinine [Mass/Vol] 2.58 mg/dL High 0.60-1.20 [facility] Comment on above: Performed By: #### P T, PTT, BMP, BNP, HS TROP, MG, CBC ####[address] Creatinine Clr Calc Pharmacy 16.27 [facility] Comment on above: Result Comment: PERF ORMED BY:[address] [place], [place] [phone] MEDICAL DIRECTORRAMEZ LAROSN M.D. Performed By: #### P T, PTT, BMP, BNP, HS TROP, MG, CBC ####[address] GFR/1.73 sq M.predicted MDRD (S/P/Bld) [Vol rate/Area] 18.839 mL/min/{1.73_m2} [facility] Comment on above: Performed By: #### P T, PTT, BMP, BNP, HS TROP, MG, CBC ####[place] [id number] [facility] Glucose [Mass/Vol] 288 mg/dL High 70-100 [facility] Comment on above: Result Comment: [facility] Glucose Reference Range is dependent on time and content of last meal. Glucose of more than 200 mg/dL in a nonstressed, ambulatory subject supports the diagnosis of Diabetes Mellitus. ADA recommended reference range Performed By: #### P T, PTT, BMP, BNP, HS TROP, MG, CBC ####[facility] [id number] Potassium [Moles/Vol] 3.6 mmol/L Normal 3.5-5.1 [facility] Comment on above: Performed By: #### P T, PTT, BMP, BNP, HS TROP, MG, CBC ####[facility] Sodium [Moles/Vol] 132 mmol/L Low 136-145 [facility] Comment on above: Performed By: #### P T, PTT, BMP, BNP, HS TROP, MG, CBC ####[facility] [id number] Urea nitrogen [Mass/Vol] 25 mg/dL Normal 7-25 [facility] Comment on above: Performed By: #### P T, PTT, BMP, BNP, HS TROP, MG, CBC ####[facility] Basophils Auto (Bld) [#/Vol] Ordered By: Yusra Santoyo on 12-06-2022 Basophils (Bld) [#/Vol] 0.0 10*3/uL 0.0-0.2 [facility] Basophils/100 WBC Auto (Bld) Ordered By: Yusra Santoyo on 12-06-2022 Basophils/100 WBC (Bld) 0.3 % . F [facility] CT cervical spine wo conon 1 CT cervical spine wo con Normal [facility] CT head/brain wo conon 12-06 CT head/brain wo con Normal [facility] Calcium [Mass/volume] in Ser um or PlasmaOrdered By: Yusra Santoyo on 12-06-2022 Calcium [Mass/Vol] 9.8 mg/dL 8.6-10.3 [facility] Carbon dioxide, total [Moles /volume] in Serum or PlasmaOrdered By: Yusra Santoyo on 12-06-2022 CO2 [Moles/Vol] 27.9 mmol/L 21.0-31.0 [facility] Chloride [Moles/volume] in S steffanie or PlasmaOrdered By: Yusra Santoyo on 12-06-2022 Chloride [Moles/Vol] 91 mmol/L 98-107 [facility] Complete Blood Count Auto Di ffon 12-06-2022 Basophils (Bld) [#/Vol] 0.0 10*3/uL Normal 0.0-0.2 [facility] Comment on above: Result Comment: PERF ORMED BY:[address] [place], [place] [phone] MEDICAL DIRECTORRAMEZ LARSON M.D. Performed By: #### P T, PTT, BMP, BNP, HS TROP, MG, CBC ####[address] Basophils/100 WBC (Bld) 0.3 % Normal . [facility] Comment on above: Performed By: #### P T, PTT, BMP, BNP, HS TROP, MG, CBC ####[address] Eosinophils (Bld) [#/Vol] 0.0 10*3/uL Normal 0.0-0.45 [facility] Comment on above: Performed By: #### P T, PTT, BMP, BNP, HS TROP, MG, CBC ####[address] Eosinophils/100 WBC (Bld) 0.1 % Normal . [facility] Comment on above: Performed By: #### P T, PTT, BMP, BNP, HS TROP, MG, CBC ####[address] Erythrocyte distribution width (RBC) [Ratio] 17.6 % High 11.9-15.3 [facility] Comment on above: Performed By: #### P T, PTT, BMP, BNP, HS TROP, MG, CBC ####[address] Hematocrit (Bld) [Volume fraction] 35.1 % Normal 34.0-46.4 [facility] Comment on above: Performed By: #### P T, PTT, BMP, BNP, HS TROP, MG, CBC ####[address] Hemoglobin (Bld) [Mass/Vol] 11.0 g/dL Low 11.8-15.4 [facility] Comment on above: Performed By: #### P T, PTT, BMP, BNP, HS TROP, MG, CBC ####[address] Lymphocytes (Bld) [#/Vol] 0.7 10*3/uL Low 1.00-4.8 [facility] Comment on above: Performed By: #### P T, PTT, BMP, BNP, HS TROP, MG, CBC ####[address] Lymphocytes/100 WBC (Bld) 5.4 % Normal . [facility] Comment on above: Performed By: #### P T, PTT, BMP, BNP, HS TROP, MG, CBC ####[address] MCH (RBC) [Entitic mass] 28.7 pg Normal 24.7-34.3 [facility] Comment on above: Performed By: #### P T, PTT, BMP, BNP, HS TROP, MG, CBC ####[address] MCV (RBC) [Entitic vol] 91.7 fL Normal 80-100 [facility] Comment on above: Performed By: #### P T, PTT, BMP, BNP, HS TROP, MG, CBC ####[address] Mean Corpuscular HGB Conc 31.3 g/dL Low 32.0-35.0 [facility] Comment on above: Performed By: #### P T, PTT, BMP, BNP, HS TROP, MG, CBC ####[place] [id number] [facility] Monocytes (Bld) [#/Vol] 0.6 10*3/uL Normal 0.0-0.8 [facility] Comment on above: Performed By: #### P T, PTT, BMP, BNP, HS TROP, MG, CBC ####[place] [id number] [facility] Monocytes/100 WBC (Bld) 21.25 % High 0.00-20.00 [facility] Comment on above: Result Comment: For adults in ED, MDW > 20.0 may be associated with a higher risk of sepsis during the first 12 hrs of hospital admission Performed By: #### P T, PTT, BMP, BNP, HS TROP, MG, CBC ####[address] Monocytes/100 WBC (Bld) 4.3 % Normal . [facility] Comment on above: Performed By: #### P T, PTT, BMP, BNP, HS TROP, MG, CBC ####[address] Neutrophils (Bld) [#/Vol] 11.9 10*3/uL High 1.8-7.7 [facility] Comment on above: Performed By: #### P T, PTT, BMP, BNP, HS TROP, MG, CBC ####[place] [id number] [facility] Neutrophils/100 WBC (Bld) 89.9 % Normal . [facility] Comment on above: Performed By: #### P T, PTT, BMP, BNP, HS TROP, MG, CBC ####[place] [id number] [facility] NRBC% 0.1 /100{WBC} Normal 0-0.5 [facility] Comment on above: Performed By: #### P T, PTT, BMP, BNP, HS TROP, MG, CBC ####[place] [id number] [facility] Platelet mean volume (Bld) [Entitic vol] 7.3 fL Normal 6.3-10.7 [facility] Comment on above: Performed By: #### P T, PTT, BMP, BNP, HS TROP, MG, CBC ####[address] Platelets (Bld) [#/Vol] 431 10*3/uL Normal 150-450 [facility] Comment on above: Performed By: #### P T, PTT, BMP, BNP, HS TROP, MG, CBC ####[address] RBC (Bld) [#/Vol] 3.83 10*6/uL Normal 3.60-5.00 [facility] Comment on above: Performed By: #### P T, PTT, BMP, BNP, HS TROP, MG, CBC ####[address] WBC (Bld) [#/Vol] 13.3 10*3/uL High 3.8-11.6 [facility] Comment on above: Performed By: #### P T, PTT, BMP, BNP, HS TROP, MG, CBC ####[address] Creatinine [Mass/volume] in Serum or PlasmaOrdered By: Yusra Santoyo on 12-06-2022 Creatinine [Mass/Vol] 2.58 mg/dL 0.60-1.20 [facility] ECG 12 lead ECGon 12-06-2022 ECG 12 lead ECG Normal [facility] ECG 12 lead ECG Normal [facility] Eosinophils Auto (Bld) [#/Vo l]Ordered By: Yusra Santoyo on 12-06-2022 Eosinophils (Bld) [#/Vol] 0.0 10*3/uL 0.0-0.45 [facility] Eosinophils/100 WBC Auto (Bl d)Ordered By: Yusra Santoyo on 12-06-2022 Eosinophils/100 WBC (Bld) 0.1 % . [facility] Erythrocyte distribution wid th Auto (RBC) [Ratio]Ordered By: Yusra Santoyo on 12-06-2022 Erythrocyte distribution width (RBC) [Ratio] 17.6 % 11.9-15.3 [facility] Glucose [Mass/volume] in Ser um or PlasmaOrdered By: Yusra Santoyo on 12-06-2022 Glucose [Mass/Vol] 288 mg/dL 70-100 [facility] Comment on above: ADA recommended refe rence rangeRandom Glucose Reference Range is dependent on time and content of last meal. Glucose of more than 200 mg/dL in a nonstressed, ambulatory subject supports the diagnosis of Diabetes Mellitus. Hematocrit Auto (Bld) [Volum e fraction]Ordered By: Yusra Santoyo on 12-06-2022 Hematocrit (Bld) [Volume fraction] 35.1 % 34.0-46.4 [facility] Hemoglobin [Mass/volume] in BloodOrdered By: Yusra Santoyo on 12-06-2022 Hemoglobin (Bld) [Mass/Vol] 11.0 g/dL 11.8-15.4 [facility] INR in Platelet poor plasma by Coagulation assayOrdered By: Yusra Santoyo on 12-06-2022 INR Coag (PPP) [Relative time] 1.0 {INR} [facility] Comment on above: INR Therapeutic Rang e A) Pre- and Peroperative OAT started two weeks before surgery. NOT HIP SURGERY: 1.5 - 2.5 HIP SURGERY: 2 - 3B) Primary and secondary prevention of venous THROMBOSIS: 2 - 3C) Active venous thrombosis, pulmonary embolismand prevention of recurrent venous thrombosis: 2 - 3D) Prevention of arterial thromboembolismincluding patients with mechanical heart valves: 3 - 4.5 Leukocytes [#/volume] correc tr for nucleated erythrocytes in Blood by Automated counOrdered By: Yusra Santoyo on 12-06-2022 WBC corrected for nucl RBC Auto (Bld) [#/Vol] 13.3 10*3/uL 3.8-11.6 [facility] Lymphocytes Auto (Bld) [#/Vo l]Ordered By: Yusra Santoyo on 12-06-2022 Lymphocytes (Bld) [#/Vol] 0.7 10*3/uL 1.00-4.8 [facility] Lymphocytes/100 WBC Auto (Bl d)Ordered By: Yusra Santoyo on 12-06-2022 Lymphocytes/100 WBC (Bld) 5.4 % . [facility] MCH Auto (RBC) [Entitic mass ]Ordered By: Yusra Santoyo on 12-06-2022 MCH (RBC) [Entitic mass] 28.7 pg 24.7-34.3 [facility] MCHC Auto (RBC) [Mass/Vol]Or dered By: Yusra Santoyo on 12-06-2022 MCHC (RBC) [Mass/Vol] 31.3 g/dL 32.0-35.0 [facility] MCV Auto (RBC) [Entitic vol] Ordered By: Yusra Santoyo on 12-06-2022 MCV (RBC) [Entitic vol] 91.7 fL 80-100 [facility] Magnesiumon 12-06-2022 Magnesium [Mass/Vol] 2.0 mg/dL Normal 1.9-2.7 [facility] Comment on above: Result Comment: PERF ORMED BY:[facility] [place], [place] [phone] MEDICAL DIRECTORRAMEZ LARSON M.D. Performed By: #### P T, PTT, BMP, BNP, HS TROP, MG, CBC ####[facility] [place] [address] [facility] Magnesium [Mass/volume] in S steffanie or PlasmaOrdered By: Yusra Santoyo on 12-06-2022 Magnesium [Mass/Vol] 2.0 mg/dL 1.9-2.7 [facility] Monocyte distribution width [Entitic volume] in Blood by AutomatedOrdered By: Yusra Santoyo on 12-06-2022 Monocyte distribution width Auto (Bld) [Entitic vol] 21.25 % 0.00-20.00 [facility] Comment on above: For adults in ED, MD W > 20.0 may be associated with a higher risk of sepsis during the first 12 hrs of hospital admission Monocytes Auto (Bld) [#/Vol] Ordered By: Yusra Santoyo on 12-06-2022 Monocytes (Bld) [#/Vol] 0.6 10*3/uL 0.0-0.8 [facility] Monocytes/100 WBC Auto (Bld) Ordered By: Yusra Santoyo on 12-06-2022 Monocytes/100 WBC (Bld) 4.3 % . [facility] Natriuretic peptide B [Mass/ Vol]Ordered By: Yusra Santoyo on 12-06-2022 Natriuretic peptide B (Bld) [Mass/Vol] 950.0 pg/mL 5-100 [facility] Neutrophils Auto (Bld) [#/Vo l]Ordered By: Yusrasimin Santoyo on 12-06-2022 Neutrophils (Bld) [#/Vol] 11.9 10*3/uL 1.8-7.7 [facility] Neutrophils/100 WBC Auto (Bl d)Ordered By: [facility] Neutrophils/100 WBC (Bld) 89.9 % . [facility] No Panel InformationOrdered By: Yusra Santoyo on 12-06-2022 Estimated GFR (CKD-EPI) 18.839 mL/Min [facility] Pharmacy Creatinine Clearance (Chem 16.27 [facility] Nucleated erythrocytes [Pres ence] in Blood by Automated countOrdered By: Yusra Santooy on 12-06-2022 Nucleated RBC Auto Ql (Bld) 0.1 /100{WBC} 0-0.5 [facility] Partial Thromboplastin Timeo n 12-06-2022 aPTT Coag (Bld) [Time] 29.3 s Normal 25.1-36.5 [facility] Comment on above: Result Comment: A he matocrit value greater than 55% may lead to inaccurate results in coagulation testing. Patients having hematocrit values >55% require a special collection tube for coagulation studies. Please contact the laboratory at [phone] for redraw instructions.PERFORMED BY:[facility] [place], [place] [id number] MEDICAL DIRECTORRAMEZ LARSON M.D. Performed By: #### P T, PTT, BMP, BNP, HS TROP, MG, CBC ####[facility] [id number] [place] [id number] [facility] Platelet mean volume Auto (B ld) [Entitic vol]Ordered By: Yusra Santoyo on 12-06-2022 Platelet mean volume (Bld) [Entitic vol] 7.3 fL 6.3-10.7 [facility] Platelets Auto (Bld) [#/Vol] Ordered By: Yusra Santoyo on 12-06-2022 Platelets (Bld) [#/Vol] 431 10*3/uL 150-450 [facility] Potassium [Moles/volume] in Serum or PlasmaOrdered By: Yusra Santoyo on 12-06-2022 Potassium [Moles/Vol] 3.6 mmol/L 3.5-5.1 [facility] Prothrombin Time INRon 12-06 INR Coag (PPP) [Relative time] 1.0 {INR} Normal [facility] Comment on above: Result Comment: INR Therapeutic Range A) Pre- and Peroperative OAT started two weeks before surgery. NOT HIP SURGERY: 1.5 - 2.5 HIP SURGERY: 2 - 3 B) Primary and secondary prevention of venous THROMBOSIS: 2 - 3 C) Active venous thrombosis, pulmonary embolism and prevention of recurrent venous thrombosis: 2 - 3 D) Prevention of arterial thromboembolism including patients with mechanical heart valves: 3 - 4.5 Performed By: #### P T, PTT, BMP, BNP, HS TROP, MG, CBC ####[facility] [id number] [place] [id number] [facility] PT Coag (PPP) [Time] 12.4 s Normal 9.0-12.9 [facility] Comment on above: Result Comment: A he matocrit value greater than 55% may lead to inaccurate results in coagulation testing. Patients having hematocrit values >55% require a special collection tube for coagulation studies. Please contact the laboratory at [phone] for redraw instructions. Performed By: #### P T, PTT, BMP, BNP, HS TROP, MG, CBC ####[facility] [id number] [place] [id number] [facility] Prothrombin time (PT)Ordered By: Yusra Santoyo on 12-06-2022 PT Coag (PPP) [Time] 12.4 s 9.0-12.9 [facility] Comment on above: A hematocrit value g reater than 55% may lead to inaccurate results in coagulation testing. Patients having hematocrit values >55% require a special collection tube for coagulation studies. Please contact the laboratory at [phone] for redraw instructions. RBC Auto (Bld) [#/Vol]Ordere d By: Yusra Santoyo on 12-06-2022 RBC (Bld) [#/Vol] 3.83 10*6/uL 3.60-5.00 [facility] Serum or plasma anion gap de terminationOrdered By: Yusra Santoyo on 12-06-2022 Anion gap [Moles/Vol] 16.7 mmol/L 6.0-15.0 [facility] Sodium [Moles/volume] in Ser um or PlasmaOrdered By: Yusra Santoyo on 12-06-2022 Sodium [Moles/Vol] 132 mmol/L 136-145 [facility] Troponin I High Sensitivityo n 12-06-2022 Troponin I High Sensitivity 17.6 pg/mL High 0.0-15.0 [facility] Comment on above: Result Comment: PERF ORMED BY:[facility] [place], [place] [phone] MEDICAL DIRECTORRAMEZ LARSON M.D. Performed By: #### P T, PTT, BMP, BNP, HS TROP, MG, CBC ####[facility] [place] [address] [facility] Troponin I.cardiac [Mass/vol ume] in Serum or Plasma by Detection limit <= 0.01 ng/Ordered By: Yusra Santoyo on 12-06-2022 Troponin I.cardiac DL <= 0.01 ng/mL [Mass/Vol] 17.6 pg/mL 0.0-15.0 [facility] Urea nitrogen [Mass/volume] in Serum or PlasmaOrdered By: Yusra Santoyo on 12-06-2022 Urea nitrogen [Mass/Vol] 25 mg/dL 7-25 [facility] WBC Auto (Bld) [#/Vol]Ordere d By: Yusra Santoyo on 12-06-2022 WBC (Bld) [#/Vol] 13.3 10*3/uL 3.8-11.6 [facility] XR chest 2V*on 12-06-2022 XR chest 2V* Normal [facility] Basic Metabolic Panelon 09-2 Anion gap [Moles/Vol] 13.0 mmol/L Normal 6.0-15.0 [facility] Comment on above: Performed By: #### B MP, CBC ####[facility] [id number] [place] [address] [facility] Calcium [Mass/Vol] 9.3 mg/dL Normal 8.6-10.3 [facility] Comment on above: Performed By: #### B MP, CBC ####[place] [address] [place] [address] [facility] Chloride [Moles/Vol] 91 mmol/L Low 98-107 [facility] Comment on above: Performed By: #### B MP, CBC ####[place] [address] [place] [id number] [facility] CO2 [Moles/Vol] 29.9 mmol/L Normal 21.0-31.0 [facility] Comment on above: Performed By: #### B MP, CBC ####[address] [address] [place] [address] [facility] Creatinine [Mass/Vol] 2.88 mg/dL Significan t change up 0.60-1.20 [facility] Comment on above: Performed By: #### B MP, CBC ####[address] [address] [facility] Creatinine Clr Calc Pharmacy 14.57 Normal [facility] Comment on above: Result Comment: PERF ORMED BY:[address] [place], [place] [phone] MEDICAL MAJOR LARSON M.D. Performed By: #### B MP, CBC ####[address] [place] [address] [place] GFR/1.73 sq M.predicted MDRD (S/P/Bld) [Vol rate/Area] 16.510 mL/min/{1.73_m2} Normal [facility] Comment on above: Performed By: #### B MP, CBC ####[facility] [id number] Glucose [Mass/Vol] 147 mg/dL High 70-100 [facility] Comment on above: Result Comment: [facility] Glucose Reference Range is dependent on time and content of last meal. Glucose of more than 200 mg/dL in a nonstressed, ambulatory subject supports the diagnosis of Diabetes Mellitus. ADA recommended reference range Performed By: #### B MP, CBC ####[facility] [id number] Potassium [Moles/Vol] 3.9 mmol/L Normal 3.5-5.1 [facility] Comment on above: Performed By: #### B MP, CBC ####[facility] [address] [place] [address] Sodium [Moles/Vol] 130 mmol/L Low 136-145 [facility] Comment on above: Performed By: #### B MP, CBC ####[facility] [address] Urea nitrogen [Mass/Vol] 32 mg/dL Significant change up -25 [facility] Comment on above: Performed By: #### B MP, CBC ####[facility] [address] [place] [address] Basophils Auto (Bld) [#/Vol] Ordered By: Carlton Mtz on 10-31-2022 Basophils (Bld) [#/Vol] 0.0 10*3/uL 0.0-0.2 [facility] Basophils/100 WBC Auto (Bld) Ordered By: Carlton Mtz on 10-31-2022 Basophils/100 WBC (Bld) 0.7 % . F [facility] Calcium [Mass/volume] in Ser um or PlasmaOrdered By: Carlton Mtz on 10-31-2022 Calcium [Mass/Vol] 9.3 mg/dL 8.6-10.3 [facility] Carbon dioxide, total [Moles /volume] in Serum or PlasmaOrdered By: Carlton Mtz on 10-31-2022 CO2 [Moles/Vol] 29.9 mmol/L 21.0-31.0 [facility] Chloride [Moles/volume] in S steffanie or PlasmaOrdered By: Carlton Mtz on 10-31-2022 Chloride [Moles/Vol] 91 mmol/L 98-107 [facility] Complete Blood Count Auto Di ffon 10-31-2022 Basophils (Bld) [#/Vol] 0.0 10*3/uL Normal 0.0-0.2 [facility] Comment on above: Result Comment: PERF ORMED BY:[address] [place], [place] [phone] MEDICAL DIRECTORRAMEZ LARSON M.D. Performed By: #### B MP, CBC ####[address] Basophils/100 WBC (Bld) 0.7 % Normal . [facility] Comment on above: Performed By: #### B MP, CBC ####[address] Eosinophils (Bld) [#/Vol] 0.3 10*3/uL Normal 0.0-0.45 [facility] Comment on above: Performed By: #### B MP, CBC ####[address] Eosinophils/100 WBC (Bld) 4.7 % Normal . [facility] Comment on above: Performed By: #### B MP, CBC ####[address] Erythrocyte distribution width (RBC) [Ratio] 16.4 % High 11.9-15.3 [facility] Comment on above: Performed By: #### B MP, CBC ####[address] Hematocrit (Bld) [Volume fraction] 30.1 % Low 34.0-46.4 [facility] Comment on above: Performed By: #### B MP, CBC ####[address] Hemoglobin (Bld) [Mass/Vol] 9.7 g/dL Low 11.8-15.4 [facility] Comment on above: Performed By: #### B MP, CBC ####[address] Lymphocytes (Bld) [#/Vol] 1.1 10*3/uL Normal 1.00-4.8 [facility] Comment on above: Performed By: #### B MP, CBC ####[address] Lymphocytes/100 WBC (Bld) 19.6 % Normal . [facility] Comment on above: Performed By: #### B MP, CBC ####[address] MCH (RBC) [Entitic mass] 29.8 pg Normal 24.7-34.3 [facility] Comment on above: Performed By: #### B MP, CBC ####[address] MCV (RBC) [Entitic vol] 92.4 fL Normal 80-100 F [facility] Comment on above: Performed By: #### B MP, CBC ####[address] Mean Corpuscular HGB Conc 32.3 g/dL Normal 32.0-35.0 [facility] Comment on above: Performed By: #### B MP, CBC ####[address] Monocytes (Bld) [#/Vol] 0.7 10*3/uL Normal 0.0-0.8 [facility] Comment on above: Performed By: #### B MP, CBC ####[address] Monocytes/100 WBC (Bld) 13.8 % Normal . [facility] Comment on above: Performed By: #### B MP, CBC ####[place] [id number] [facility] Neutrophils (Bld) [#/Vol] 3.3 10*3/uL Normal 1.8-7.7 [facility] Comment on above: Performed By: #### B MP, CBC ####[place] [id number] [facility] Neutrophils/100 WBC (Bld) 61.2 % Normal . [facility] Comment on above: Performed By: #### B MP, CBC ####[place] [id number] [facility] NRBC% 0.0 /100{WBC} Normal 0-0.5 [facility] Comment on above: Performed By: #### B MP, CBC ####[place] [id number] [facility] Platelet mean volume (Bld) [Entitic vol] 7.6 fL Normal 6.3-10.7 [facility] Comment on above: Performed By: #### B MP, CBC ####[place] [id number] [facility] Platelets (Bld) [#/Vol] 300 10*3/uL Normal 150-450 [facility] Comment on above: Performed By: #### B MP, CBC ####[place] [id number] [facility] RBC (Bld) [#/Vol] 3.25 10*6/uL Low 3.60-5.00 [facility] Comment on above: Performed By: #### B MP, CBC ####[place] [id number] [facility] WBC (Bld) [#/Vol] 5.4 10*3/uL Normal 3.8-11.6 [facility] Comment on above: Performed By: #### B MP, CBC ####[address] [address] [place] Creatinine [Mass/volume] in Serum or PlasmaOrdered By: Carlton Mtz on 10-31-2022 Creatinine [Mass/Vol] 2.88 mg/dL 0.60-1.20 [facility] Comment on above: Delta: 5.32 on 10/3018 Eosinophils Auto (Bld) [#/Vo l]Ordered By: Carlton Mtz on 10-31-2022 Eosinophils (Bld) [#/Vol] 0.3 10*3/uL 0.0-0.45 [facility] Eosinophils/100 WBC Auto (Bl d)Ordered By: Carlton Mtz on 10-31-2022 Eosinophils/100 WBC (Bld) 4.7 % . [facility] Erythrocyte distribution wid th Auto (RBC) [Ratio]Ordered By: Carlton Mtz on 10-31-2022 Erythrocyte distribution width (RBC) [Ratio] 16.4 % 11.9-15.3 [facility] Glucose Glucometer (BldC) [M ass/Vol]Ordered By: Carlton Mtz on 10-31-2022 Glucose [Mass/Vol] 223 mg/dL [facility] Comment on above: Random Glucose Refer ence Range is dependent on time and content of last meal. Glucose of more than 200 mg/dL in a nonstressed, ambulatory subject supports the diagnosis of Diabetes Mellitus. Glucose Poct Glucometerson 0 10-31-2022 Glucose [Mass/Vol] 223 mg/dL Normal [facility] Comment on above: Result Comment: [facility] Glucose Reference Range is dependent on time and content of last meal. Glucose of more than 200 mg/dL in a nonstressed, ambulatory subject supports the diagnosis of Diabetes Mellitus.PERFORMED BY:[facility] [place], [place] [phone] MEDICAL DIRECTORRAMEZ LARSON M.D. Performed By: #### G DAVID ####Point of Care testing, Glucose [Mass/Vol] 134 mg/dL Normal [facility] Comment on above: Result Comment: [place] [facility] Glucose Reference Range is dependent on time and content of last meal. Glucose of more than 200 mg/dL in a nonstressed, ambulatory subject supports the diagnosis of Diabetes Mellitus.PERFORMED BY:[facility] [place] [phone] MEDICAL DIRECTORRAMEZ LARSON M.D. Performed By: #### G LUANNITA ####Point of Care testing, Glucose [Mass/volume] in Ser um or PlasmaOrdered By: Carlton Mtz on 10-31-2022 Glucose [Mass/Vol] 147 mg/dL 70-100 [facility] Comment on above: ADA recommended refe rence rangeRandom Glucose Reference Range is dependent on time and content of last meal. Glucose of more than 200 mg/dL in a nonstressed, ambulatory subject supports the diagnosis of Diabetes Mellitus. Hematocrit Auto (Bld) [Volum e fraction]Ordered By: Carlton Mtz on 10-31-2022 Hematocrit (Bld) [Volume fraction] 30.1 % 34.0-46.4 [facility] Hemoglobin [Mass/volume] in BloodOrdered By: Calrton Mtz on 10-31-2022 Hemoglobin (Bld) [Mass/Vol] 9.7 g/dL 11.8-15.4 [facility] Leukocytes [#/volume] correc tr for nucleated erythrocytes in Blood by Automated counOrdered By: Carlton Mtz on 10-31-2022 WBC corrected for nucl RBC Auto (Bld) [#/Vol] 5.4 10*3/uL 3.8-11.6 [facility] Lymphocytes Auto (Bld) [#/Vo l]Ordered By: Carlton Mtz on 10-31-2022 Lymphocytes (Bld) [#/Vol] 1.1 10*3/uL 1.00-4.8 [facility] Lymphocytes/100 WBC Auto (Bl d)Ordered By: Carlton Mtz on 10-31-2022 Lymphocytes/100 WBC (Bld) 19.6 % . [facility] MCH Auto (RBC) [Entitic mass ]Ordered By: Carlton Mtz on 10-31-2022 MCH (RBC) [Entitic mass] 29.8 pg 24.7-34.3 [facility] MCHC Auto (RBC) [Mass/Vol]Or dered By: Carlton Mtz on 10-31-2022 MCHC (RBC) [Mass/Vol] 32.3 g/dL 32.0-35.0 [facility] MCV Auto (RBC) [Entitic vol] Ordered By: Carlton Mtz on 10-31-2022 MCV (RBC) [Entitic vol] 92.4 fL 80-100 [facility] Monocytes Auto (Bld) [#/Vol] Ordered By: Carlton Mtz on 10-31-2022 Monocytes (Bld) [#/Vol] 0.7 10*3/uL 0.0-0.8 [facility] Monocytes/100 WBC Auto (Bld) Ordered By: Carlton Mtz on 10-31-2022 Monocytes/100 WBC (Bld) 13.8 % . [facility] Neutrophils Auto (Bld) [#/Vo l]Ordered By: Carlton Mtz on 10-31-2022 Neutrophils (Bld) [#/Vol] 3.3 10*3/uL 1.8-7.7 [facility] Neutrophils/100 WBC Auto (Bl d)Ordered By: Carlton Mtz on 10-31-2022 Neutrophils/100 WBC (Bld) 61.2 % . [facility] No Panel InformationOrdered By: Carlton Mtz on 10-31-2022 Estimated GFR (CKD-EPI) 16.510 mL/Min [facility] Pharmacy Creatinine Clearance (Chem 14.57 [facility] Nucleated erythrocytes [Pres ence] in Blood by Automated countOrdered By: Carlton Mtz on 10-31-2022 Nucleated RBC Auto Ql (Bld) 0.0 /100{WBC} 0-0.5 [facility] Platelet mean volume Auto (B ld) [Entitic vol]Ordered By: Carlton Mtz on 10-31-2022 Platelet mean volume (Bld) [Entitic vol] 7.6 fL 6.3-10.7 [facility] Platelets Auto (Bld) [#/Vol] Ordered By: Carlton Mtz on 10-31-2022 Platelets (Bld) [#/Vol] 300 10*3/uL 150-450 [facility] Potassium [Moles/volume] in Serum or PlasmaOrdered By: Carlton Mtz on 10-31-2022 Potassium [Moles/Vol] 3.9 mmol/L 3.5-5.1 [facility] RBC Auto (Bld) [#/Vol]Ordere d By: Carlton Mtz on 10-31-2022 RBC (Bld) [#/Vol] 3.25 10*6/uL 3.60-5.00 [facility] Serum or plasma anion gap de terminationOrdered By: Carlton Mtz on 10-31-2022 Anion gap [Moles/Vol] 13.0 mmol/L 6.0-15.0 [facility] Sodium [Moles/volume] in Ser um or PlasmaOrdered By: Carlton Mtz on 10-31-2022 Sodium [Moles/Vol] 130 mmol/L 136-145 [facility] Urea nitrogen [Mass/volume] in Serum or PlasmaOrdered By: Carlton Mtz on 10-31-2022 Urea nitrogen [Mass/Vol] 32 mg/dL 7-25 [facility] Comment on above: Delta: 72 on WBC Auto (Bld) [#/Vol]Ordere d By: Carlton Mtz on 10-31-2022 WBC (Bld) [#/Vol] 5.4 10*3/uL 3.8-11.6 [facility] Basic Metabolic Panelon 10-12 Anion gap [Moles/Vol] 20.5 mmol/L High 6.0-15.0 [facility] Comment on above: Performed By: #### M G, PHOS, BMP, CBC ####[facility] [id number] [place] [id number] [facility] Calcium [Mass/Vol] 10.0 mg/dL Normal 8.6-10.3 [facility] Comment on above: Performed By: #### JOEY Billings BMP, CBC ####[place] [address] [place] [id number] [place] Chloride [Moles/Vol] 89 mmol/L Low 98-107 [facility] Comment on above: Performed By: #### JOEY Billings BMP, CBC ####[place] [id number] [facility] CO2 [Moles/Vol] 24.4 mmol/L Normal 21.0-31.0 [facility] Comment on above: Performed By: #### JOEY Billings BMP, CBC ####[place] [id number] [facility] Creatinine [Mass/Vol] 5.32 mg/dL Significan t change up 0.60-1.20 [facility] Comment on above: Performed By: #### JOEY Billings BMP, CBC ####[place] [id number] [place] Creatinine Clr Calc Pharmacy 7.89 [facility] Comment on above: Performed By: #### JOEY Billings BMP, CBC ####[place] [id number] [facility] GFR/1.73 sq M.predicted MDRD (S/P/Bld) [Vol rate/Area] 7.905 mL/min/{1.73_m2} [facility] Comment on above: Performed By: #### JOEY Billings BMP, CBC ####[place] [id number] [facility] Glucose [Mass/Vol] 191 mg/dL High 70-100 [facility] Comment on above: Result Comment: [place] Glucose Reference Range is dependent on time and content of last meal. Glucose of more than 200 mg/dL in a nonstressed, ambulatory subject supports the diagnosis of Diabetes Mellitus. ADA recommended reference range Performed By: #### M Sherry, PHOS, BMP, CBC ####[place] [id number] [place] [id number] [facility] Potassium [Moles/Vol] 3.9 mmol/L Normal 3.5-5.1 [facility] Comment on above: Performed By: #### M G, PHOS, BMP, CBC ####[address] Sodium [Moles/Vol] 130 mmol/L Low 136-145 [facility] Comment on above: Performed By: #### M G, PHOS, BMP, CBC ####[address] Urea nitrogen [Mass/Vol] 72 mg/dL High 7-25 [facility] Comment on above: Performed By: #### M Sherry, PHOS, BMP, CBC ####[address] Complete Blood Count Auto Di ffon 10-30-2022 Basophils (Bld) [#/Vol] 0.1 10*3/uL Normal 0.0-0.2 [facility] Comment on above: Result Comment: PERF ORMED BY:[address] [place], [place] [phone] MEDICAL DIRECTORRAMEZ LARSON M.D. Performed By: #### M Sherry, PHOS, BMP, CBC ####[address] Basophils/100 WBC (Bld) 0.8 % Normal . [facility] Comment on above: Performed By: #### M G, PHOS, BMP, CBC ####[place] [id number] [facility] Eosinophils (Bld) [#/Vol] 0.3 10*3/uL Normal 0.0-0.45 [facility] Comment on above: Performed By: #### M G, PHOS, BMP, CBC ####[place] [address] [place] Eosinophils/100 WBC (Bld) 3.5 % Normal . [facility] Comment on above: Performed By: #### JOEY Billings BMP, CBC ####[address] Erythrocyte distribution width (RBC) [Ratio] 16.7 % High 11.9-15.3 [facility] Comment on above: Performed By: #### JOEY Billings BMP, CBC ####[address] Hematocrit (Bld) [Volume fraction] 28.4 % Low 34.0-46.4 [facility] Comment on above: Performed By: #### JOEY Billings BMP, CBC ####[address] Hemoglobin (Bld) [Mass/Vol] 9.2 g/dL Low 11.8-15.4 [facility] Comment on above: Performed By: #### JOEY Billings BMP, CBC ####[address] Lymphocytes (Bld) [#/Vol] 1.1 10*3/uL Normal 1.00-4.8 [facility] Comment on above: Performed By: #### JOEY Billings BMP, CBC ####[address] Lymphocytes/100 WBC (Bld) 16.2 % Normal . [facility] Comment on above: Performed By: #### JOEY Billings BMP, CBC ####[address] MCH (RBC) [Entitic mass] 30.3 pg Normal 24.7-34.3 [facility] Comment on above: Performed By: #### JOEY Billings BMP, CBC ####[address] MCV (RBC) [Entitic vol] 92.9 fL Normal 80-100 F [facility] Comment on above: Performed By: #### FIDEL BillingsS, BMP, CBC ####[address] Mean Corpuscular HGB Conc 32.6 g/dL Normal 32.0-35.0 [facility] Comment on above: Performed By: #### M Sherry, PHOS, BMP, CBC ####[address] Monocytes (Bld) [#/Vol] 1.1 10*3/uL High 0.0-0.8 [facility] Comment on above: Performed By: #### M G, PHOS, BMP, CBC ####[address] Monocytes/100 WBC (Bld) 15.5 % Normal . [facility] Comment on above: Performed By: #### M Sherry, PHOS, BMP, CBC ####[address] Neutrophils (Bld) [#/Vol] 4.5 10*3/uL Normal 1.8-7.7 [facility] Comment on above: Performed By: #### Jesusita Powell, PHOS, BMP, CBC ####[address] Neutrophils/100 WBC (Bld) 64.0 % Normal . [facility] Comment on above: Performed By: #### M Sherry, PHOS, BMP, CBC ####[address] NRBC% 0.0 /100{WBC} Normal 0-0.5 [facility] Comment on above: Performed By: #### M G, PHOS, BMP, CBC ####[address] Platelet mean volume (Bld) [Entitic vol] 7.5 fL Normal 6.3-10.7 [facility] Comment on above: Performed By: #### M G, PHOS, BMP, CBC ####[address] Platelets (Bld) [#/Vol] 312 10*3/uL Normal 150-450 [facility] Comment on above: Performed By: #### M JOEY Powell BMP, CBC ####[place] [id number] [facility] RBC (Bld) [#/Vol] 3.05 10*6/uL Low 3.60-5.00 [facility] Comment on above: Performed By: #### M Sherry, CHELSI COOK, CBC ####[place] [id number] [facility] WBC (Bld) [#/Vol] 7.1 10*3/uL Normal 3.8-11.6 [facility] Comment on above: Performed By: #### M JOEY Powell BMP, CBC ####[place] [id number] [facility] ECG 12 lead ECGon 10-30-2022 ECG 12 lead ECG Normal [facility] Glucose Poct Glucometerson 0 10-30-2022 Commemt1 Glu2: Cleaned Meter Normal [facility] Comment on above: Result Comment: PERF ORMED BY:[place] [address] [address] [place], [place] [id number] MEDICAL DIRECTORRAMEZ LARSON M.D. Performed By: #### G LULS ####Point of Care testing, Glucose [Mass/Vol] 181 mg/dL Normal [facility] Comment on above: Result Comment: [facility] Glucose Reference Range is dependent on time and content of last meal. Glucose of more than 200 mg/dL in a nonstressed, ambulatory subject supports the diagnosis of Diabetes Mellitus. Performed By: #### G LULS ####Point of Care testing, Glucose [Mass/Vol] 139 mg/dL Normal [facility] Comment on above: Result Comment: [facility] Glucose Reference Range is dependent on time and content of last meal. Glucose of more than 200 mg/dL in a nonstressed, ambulatory subject supports the diagnosis of Diabetes Mellitus.PERFORMED BY:[place] [address] [address] [place], [place] [phone] MEDICAL DIRECTORRAMEZ LARSON M.D. Performed By: #### G LULS ####Point of Care testing, Glucose [Mass/Vol] 172 mg/dL Normal [facility] Comment on above: Result Comment: [facility] Glucose Reference Range is dependent on time and content of last meal. Glucose of more than 200 mg/dL in a nonstressed, ambulatory subject supports the diagnosis of Diabetes Mellitus.PERFORMED BY:[address] [place]UM[place], [place] [phone] MEDICAL DIRECTORRAMEZ LARSON M.D. Performed By: #### G LULS ####Point of Care testing, Glucose [Mass/Vol] 201 mg/dL Normal [facility] Comment on above: Result Comment: [facility] Glucose Reference Range is dependent on time and content of last meal. Glucose of more than 200 mg/dL in a nonstressed, ambulatory subject supports the diagnosis of Diabetes Mellitus.PERFORMED BY:[address] [place], [place] [phone] MEDICAL DIRECTORRAMEZ LARSON M.D. Performed By: #### G LULS ####Point of Care testing, Magnesiumon 10-30-2022 Magnesium [Mass/Vol] 2.4 mg/dL Normal 1.9-2.7 [facility] Comment on above: Result Comment: PERF ORMED BY:[address] [place], [place] [phone] MEDICAL DIRECTORRAMEZ LARSON M.D. Performed By: #### M G, PHOS, BMP, CBC ####[address] [address] [place] Magnesium [Mass/volume] in S steffanie or PlasmaOrdered By: Malika Arreaga on 10-30-2022 Magnesium [Mass/Vol] 2.4 mg/dL 1.9-2.7 [facility] No Panel InformationOrdered By: Carlton Mtz on 10-30-2022 Bedside Glucose Comment Glu2: cleaned meter [facility] Phosphate [Mass/volume] in S steffanie or PlasmaOrdered By: Malika Arreaga on 10-30-2022 Phosphate [Mass/Vol] 6.4 mg/dL 3.7-7.2 [facility] Phosphoruson 10-30-2022 Phosphate [Mass/Vol] 6.4 mg/dL Normal 3.7-7.2 [facility] Comment on above: Performed By: #### M G, PHOS, BMP, CBC ####[facility] [address] [place] [address] [facility] Troponin I High Sensitivityo n 10-30-2022 Troponin I High Sensitivity 29.9 pg/mL High 0.0-15.0 [facility] Comment on above: Result Comment: PERF ORMED BY:[facility] [place] [address] [place], [place] [phone] MEDICAL DIRECTORRAMEZ LARSON M.D. Performed By: #### H S TROP ####[facility] [id number] [place] [address] [facility] Troponin I.cardiac [Mass/vol ume] in Serum or Plasma by Detection limit <= 0.01 ng/Ordered By: Gary Almaguer on 10-30-2022 Troponin I.cardiac DL <= 0.01 ng/mL [Mass/Vol] 29.9 pg/mL 0.0-15.0 [facility] XR chest 1V portableon 10-30 XR chest 1V portable Normal [facility] XR shoulder LT min 2V*on XR shoulder LT min 2V* Normal [facility] Activated partial thrombopla stin time (aPTT) in platelet poor plasma by coagulation aOrdered By: Azar Palmer on 10-29-2022 aPTT Coag (PPP) [Time] 30.5 s 25.1-36.5 [facility] Comment on above: A hematocrit value g reater than 55% may lead to inaccurate results in coagulation testing. Patients having hematocrit values >55% require a special collection tube for coagulation studies. Please contact the laboratory at [phone] for redraw instructions. Alanine aminotransferase [En zymatic activity/volume] in Serum or PlasmaOrdered By: Azar Palmer on 10-29-2022 ALT [Catalytic activity/Vol] 19 U/L 7-52 [facility] Albumin [Mass/volume] in Ser um or Plasma by Bromocresol green (BCG) dye binding methoOrdered By: Azar Palmer on 10-29-2022 Albumin BCG dye [Mass/Vol] 3.5 g/dL 3.5-5.7 [facility] Alkaline phosphatase [Enzyma tic activity/volume] in Serum or PlasmaOrdered By: Azar Palmer on 10-29-2022 ALP [Catalytic activity/Vol] 135 U/L 34-104 [facility] Aspartate aminotransferase [ Enzymatic activity/volume] in Serum or PlasmaOrdered By: Azar Palmer on 10-29-2022 AST [Catalytic activity/Vol] 19 U/L 13-39 [facility] B-Type Natriuretic Peptideon 10-29-2022 Natriuretic peptide B (Bld) [Mass/Vol] 806.0 pg/mL High 5-100 [facility] Comment on above: Result Comment: PERF ORMED BY:[facility] [place], [place] [phone] MEDICAL DIRECTORRAMEZ LARSON M.D. Performed By: #### C MP, CK, HS TROP, CBC, PT, BNP, PTT ####[facility] [place] [address] [facility] Basophils Auto (Bld) [#/Vol] Ordered By: Azar Palmer on 10-29-2022 Basophils (Bld) [#/Vol] 0.0 10*3/uL 0.0-0.2 [facility] Basophils/100 WBC Auto (Bld) Ordered By: Azar Palmer on 10-29-2022 Basophils/100 WBC (Bld) 0.5 % . F [facility] Bilirubin.total [Mass/volume ] in Serum or PlasmaOrdered By: Azar Palmer on 10-29-2022 Bilirubin [Mass/Vol] 0.4 mg/dL 0.3-1.[address] [facility] [address] cervical spine wo conon 0 10-29-2022 CT cervical spine wo con Normal [facility] CT head/brain wo conon 10-29 CT head/brain wo con Normal [facility] Calcium [Mass/volume] in Ser um or PlasmaOrdered By: Azar Palmer on 10-29-2022 Calcium [Mass/Vol] 10.2 mg/dL 8.6-10.3 [facility] Carbon dioxide, total [Moles /volume] in Serum or PlasmaOrdered By: Azar Palmer on 10-29-2022 CO2 [Moles/Vol] 23.3 mmol/L 21.0-31.0 [facility] Chloride [Moles/volume] in S steffanie or PlasmaOrdered By: Azar Palmer on 10-29-2022 Chloride [Moles/Vol] 90 mmol/L 98-107 [facility] Complete Blood Count Auto Di ffon 10-29-2022 Basophils (Bld) [#/Vol] 0.0 10*3/uL Normal 0.0-0.2 [facility] Comment on above: Result Comment: PERF ORMED BY:[address] [place], [place] [phone] MEDICAL DIRECTORRAMEZ LARSON M.D. Performed By: #### C MP, CK, HS TROP, CBC, PT, BNP, PTT ####[address] Basophils/100 WBC (Bld) 0.5 % Normal . [facility] Comment on above: Performed By: #### C MP, CK, HS TROP, CBC, PT, BNP, PTT ####[address] Eosinophils (Bld) [#/Vol] 0.2 10*3/uL Normal 0.0-0.45 [facility] Comment on above: Performed By: #### C MP, CK, HS TROP, CBC, PT, BNP, PTT ####[address] Eosinophils/100 WBC (Bld) 3.5 % Normal . [facility] Comment on above: Performed By: #### C MP, CK, HS TROP, CBC, PT, BNP, PTT ####[address] Erythrocyte distribution width (RBC) [Ratio] 17.1 % High 11.9-15.3 [facility] Comment on above: Performed By: #### C MP, CK, HS TROP, CBC, PT, BNP, PTT ####[address] Hematocrit (Bld) [Volume fraction] 32.7 % Low 34.0-46.4 [facility] Comment on above: Performed By: #### C MP, CK, HS TROP, CBC, PT, BNP, PTT ####[address] Hemoglobin (Bld) [Mass/Vol] 10.7 g/dL Low 11.8-15.4 [facility] Comment on above: Performed By: #### C MP, CK, HS TROP, CBC, PT, BNP, PTT ####[address] Lymphocytes (Bld) [#/Vol] 1.0 10*3/uL Normal 1.00-4.8 [facility] Comment on above: Performed By: #### C MP, CK, HS TROP, CBC, PT, BNP, PTT ####[address] Lymphocytes/100 WBC (Bld) 14.3 % Normal . [facility] Comment on above: Performed By: #### C MP, CK, HS TROP, CBC, PT, BNP, PTT ####[address] MCH (RBC) [Entitic mass] 30.2 pg Normal 24.7-34.3 [facility] Comment on above: Performed By: #### C MP, CK, HS TROP, CBC, PT, BNP, PTT ####[address] MCV (RBC) [Entitic vol] 92.1 fL Normal 80-100 F [facility] Comment on above: Performed By: #### C MP, CK, HS TROP, CBC, PT, BNP, PTT ####[address] Mean Corpuscular HGB Conc 32.8 g/dL Normal 32.0-35.0 [facility] Comment on above: Performed By: #### C MP, CK, HS TROP, CBC, PT, BNP, PTT ####[address] Monocytes (Bld) [#/Vol] 0.9 10*3/uL High 0.0-0.8 [facility] Comment on above: Performed By: #### C MP, CK, HS TROP, CBC, PT, BNP, PTT ####[address] Monocytes/100 WBC (Bld) 24.74 % High 0.00-20.00 [facility] Comment on above: Result Comment: For adults in ED, MDW > 20.0 may be associated with a higher risk of sepsis during the first 12 hrs of hospital admission Performed By: #### C MP, CK, HS TROP, CBC, PT, BNP, PTT ####[address] Monocytes/100 WBC (Bld) 13.3 % Normal . [facility] Comment on above: Performed By: #### C MP, CK, HS TROP, CBC, PT, BNP, PTT ####[address] Neutrophils (Bld) [#/Vol] 4.6 10*3/uL Normal 1.8-7.7 [facility] Comment on above: Performed By: #### C MP, CK, HS TROP, CBC, PT, BNP, PTT ####[address] Neutrophils/100 WBC (Bld) 68.4 % Normal . [facility] Comment on above: Performed By: #### C MP, CK, HS TROP, CBC, PT, BNP, PTT ####[place] [address] NRBC% 0.1 /100{WBC} Normal 0-0.5 [facility] Comment on above: Performed By: #### C MP, CK, HS TROP, CBC, PT, BNP, PTT ####[address] Platelet mean volume (Bld) [Entitic vol] 7.7 fL Normal 6.3-10.7 [facility] Comment on above: Performed By: #### C MP, CK, HS TROP, CBC, PT, BNP, PTT ####[address] Platelets (Bld) [#/Vol] 371 10*3/uL Normal 150-450 [facility] Comment on above: Performed By: #### C MP, CK, HS TROP, CBC, PT, BNP, PTT ####[address] RBC (Bld) [#/Vol] 3.55 10*6/uL Low 3.60-5.00 [facility] Comment on above: Performed By: #### C MP, CK, HS TROP, CBC, PT, BNP, PTT ####[address] WBC (Bld) [#/Vol] 6.7 10*3/uL Normal 3.8-11.6 [facility] Comment on above: Performed By: #### C MP, CK, HS TROP, CBC, PT, BNP, PTT ####[address] Comprehensive Metabolic Pane eliseo 10-29-2022 Albumin [Mass/Vol] 3.5 g/dL Normal 3.5-5.7 [facility] Comment on above: Performed By: #### C MP, CK, HS TROP, CBC, PT, BNP, PTT ####[address] Albumin/Globulin [Mass ratio] 0.9 {ratio} Normal [facility] Comment on above: Performed By: #### C MP, CK, HS TROP, CBC, PT, BNP, PTT ####[address] ALP [Catalytic activity/Vol] 135 U/L High 34-104 [facility] Comment on above: Performed By: #### C MP, CK, HS TROP, CBC, PT, BNP, PTT ####[address] ALT [Catalytic activity/Vol] 19 U/L Normal 7-52 [facility] Comment on above: Performed By: #### C MP, CK, HS TROP, CBC, PT, BNP, PTT ####[address] Anion gap [Moles/Vol] 17.4 mmol/L High 6.0-15.0 [facility] Comment on above: Performed By: #### C MP, CK, HS TROP, CBC, PT, BNP, PTT ####[address] AST [Catalytic activity/Vol] 19 U/L Normal 13-39 [facility] Comment on above: Performed By: #### C MP, CK, HS TROP, CBC, PT, BNP, PTT ####[address] Bilirubin [Mass/Vol] 0.4 mg/dL Normal 0.3-1.0 [facility] Comment on above: Performed By: #### C MP, CK, HS TROP, CBC, PT, BNP, PTT ####[address] Calcium [Mass/Vol] 10.2 mg/dL Normal 8.6-10.3 [facility] Comment on above: Performed By: #### C MP, CK, HS TROP, CBC, PT, BNP, PTT ####[place] [id number] [facility] Chloride [Moles/Vol] 90 mmol/L Low 98-107 [facility] Comment on above: Performed By: #### C MP, CK, HS TROP, CBC, PT, BNP, PTT ####[address] CO2 [Moles/Vol] 23.3 mmol/L Normal 21.0-31.0 [facility] Comment on above: Performed By: #### C MP, CK, HS TROP, CBC, PT, BNP, PTT ####[place] [id number] [facility] Creatinine [Mass/Vol] 4.72 mg/dL High 0.60-1.20 [facility] Comment on above: Performed By: #### C MP, CK, HS TROP, CBC, PT, BNP, PTT ####[address] Creatinine Clr Calc Pharmacy 8.89 [facility] Comment on above: Result Comment: PERF ORMED BY:[address] [place], [place] [phone] MEDICAL DIRECTORRAMEZ LARSON M.D. Performed By: #### C MP, CK, HS TROP, CBC, PT, BNP, PTT ####[address] GFR/1.73 sq M.predicted MDRD (S/P/Bld) [Vol rate/Area] 9.126 mL/min/{1.73_m2} [facility] Comment on above: Performed By: #### C MP, CK, HS TROP, CBC, PT, BNP, PTT ####[place] [id number] [facility] Globulin (S) [Mass/Vol] 4.1 g/dL Normal [facility] Comment on above: Performed By: #### C MP, CK, HS TROP, CBC, PT, BNP, PTT ####[place] [id number] [facility] Glucose [Mass/Vol] 191 mg/dL High 70-100 [facility] Comment on above: Result Comment: [place] Glucose Reference Range is dependent on time and content of last meal. Glucose of more than 200 mg/dL in a nonstressed, ambulatory subject supports the diagnosis of Diabetes Mellitus. ADA recommended reference range Performed By: #### C MP, CK, HS TROP, CBC, PT, BNP, PTT ####[address] Potassium [Moles/Vol] 3.7 mmol/L Normal 3.5-5.1 [facility] Comment on above: Performed By: #### C MP, CK, HS TROP, CBC, PT, BNP, PTT ####[address] Protein [Mass/Vol] 7.6 g/dL Normal 6.4-8.9 [facility] Comment on above: Performed By: #### C MP, CK, HS TROP, CBC, PT, BNP, PTT ####[address] Sodium [Moles/Vol] 127 mmol/L Low 136-145 [facility] Comment on above: Performed By: #### C MP, CK, HS TROP, CBC, PT, BNP, PTT ####[place] [id number] [facility] Urea nitrogen [Mass/Vol] 63 mg/dL High 7-25 [facility] Comment on above: Performed By: #### C MP, CK, HS TROP, CBC, PT, BNP, PTT ####[place] [id number] [facility] Creatine Kinaseon 10-29-2022 CK [Catalytic activity/Vol] 29 U/L Low 30 [facility] Comment on above: Performed By: #### C MP, CK, HS TROP, CBC, PT, BNP, PTT ####[place] [id number] [facility] Creatine kinase [Enzymatic a ctivity/volume] in Serum or PlasmaOrdered By: Azar Palmer on 10-29-2022 CK [Catalytic activity/Vol] 29 U/L 30 [facility] Creatinine [Mass/volume] in Serum or PlasmaOrdered By: Azar Palmer on 10-29-2022 Creatinine [Mass/Vol] 4.72 mg/dL 0.60-1.20 [facility] ECG 12 lead ECGon 10-29-2022 ECG 12 lead ECG Normal [facility] Eosinophils Auto (Bld) [#/Vo l]Ordered By: Azar Palmer on 10-29-2022 Eosinophils (Bld) [#/Vol] 0.2 10*3/uL 0.0-0.45 [facility] Eosinophils/100 WBC Auto (Bl d)Ordered By: Azar Palmer on 10-29-2022 Eosinophils/100 WBC (Bld) 3.5 % . [facility] Erythrocyte distribution wid th Auto (RBC) [Ratio]Ordered By: Azar Palmer on 10-29-2022 Erythrocyte distribution width (RBC) [Ratio] 17.1 % 11.9-15.3 [facility] Globulin Calc (S) [Mass/Vol] Ordered By: Azar Palmer on 10-29-2022 Globulin (S) [Mass/Vol] 4.1 g/dL F [facility] Glucose [Mass/volume] in Ser um or PlasmaOrdered By: Azar Palmer on 10-29-2022 Glucose [Mass/Vol] 191 mg/dL 70-100 [facility] Comment on above: ADA recommended refe rence rangeRandom Glucose Reference Range is dependent on time and content of last meal. Glucose of more than 200 mg/dL in a nonstressed, ambulatory subject supports the diagnosis of Diabetes Mellitus. Hematocrit Auto (Bld) [Volum e fraction]Ordered By: Azar Palmer on 10-29-2022 Hematocrit (Bld) [Volume fraction] 32.7 % 34.0-46.4 [facility] Hemoglobin [Mass/volume] in BloodOrdered By: Azar Palmer on 10-29-2022 Hemoglobin (Bld) [Mass/Vol] 10.7 g/dL 11.8-15.4 [facility] INR in Platelet poor plasma by Coagulation assayOrdered By: Azar Palmer on 10-29-2022 INR Coag (PPP) [Relative time] 1.1 {INR} [facility] Comment on above: INR Therapeutic Rang e A) Pre- and Peroperative OAT started two weeks before surgery. NOT HIP SURGERY: 1.5 - 2.5 HIP SURGERY: 2 - 3B) Primary and secondary prevention of venous THROMBOSIS: 2 - 3C) Active venous thrombosis, pulmonary embolismand prevention of recurrent venous thrombosis: 2 - 3D) Prevention of arterial thromboembolismincluding patients with mechanical heart valves: 3 - 4.5 Leukocytes [#/volume] correc tr for nucleated erythrocytes in Blood by Automated counOrdered By: Azar Palmer on 10-29-2022 WBC corrected for nucl RBC Auto (Bld) [#/Vol] 6.7 10*3/uL 3.8-11.6 [facility] Lymphocytes Auto (Bld) [#/Vo l]Ordered By: Azar Palmer on 10-29-2022 Lymphocytes (Bld) [#/Vol] 1.0 10*3/uL 1.00-4.8 [facility] Lymphocytes/100 WBC Auto (Bl d)Ordered By: Azar Palmer on 10-29-2022 Lymphocytes/100 WBC (Bld) 14.3 % . [facility] MCH Auto (RBC) [Entitic mass ]Ordered By: Azar Palmer on 10-29-2022 MCH (RBC) [Entitic mass] 30.2 pg 24.7-34.3 [facility] MCHC Auto (RBC) [Mass/Vol]Or dered By: Azar Palmer on 10-29-2022 MCHC (RBC) [Mass/Vol] 32.8 g/dL 32.0-35.0 [facility] MCV Auto (RBC) [Entitic vol] Ordered By: Azar Palmer on 10-29-2022 MCV (RBC) [Entitic vol] 92.1 fL 80-100 [facility] Monocyte distribution width [Entitic volume] in Blood by AutomatedOrdered By: Azar Palmer on 10-29-2022 Monocyte distribution width Auto (Bld) [Entitic vol] 24.74 % 0.00-20.00 [facility] Comment on above: For adults in ED, MD W > 20.0 may be associated with a higher risk of sepsis during the first 12 hrs of hospital admission Monocytes Auto (Bld) [#/Vol] Ordered By: Azar Palmer on 10-29-2022 Monocytes (Bld) [#/Vol] 0.9 10*3/uL 0.0-0.8 [facility] Monocytes/100 WBC Auto (Bld) Ordered By: Azar Palmer on 10-29-2022 Monocytes/100 WBC (Bld) 13.3 % . [facility] Natriuretic peptide B [Mass/ Vol]Ordered By: Azar Palmer on 10-29-2022 Natriuretic peptide B (Bld) [Mass/Vol] 806.0 pg/mL 5-100 [facility] Neutrophils Auto (Bld) [#/Vo l]Ordered By: Azar Palmer on 10-29-2022 Neutrophils (Bld) [#/Vol] 4.6 10*3/uL 1.8-7.7 [facility] Neutrophils/100 WBC Auto (Bl d)Ordered By: Azar Palmer on 10-29-2022 Neutrophils/100 WBC (Bld) 68.4 % . [facility] No Panel InformationOrdered By: Azar Palmer on 10-29-2022 Estimated GFR (CKD-EPI) 9.126 mL/Min [facility] Pharmacy Creatinine Clearance (Chem 8.89 [facility] Nucleated erythrocytes [Pres ence] in Blood by Automated countOrdered By: Azar Palmer on 10-29-2022 Nucleated RBC Auto Ql (Bld) 0.1 /100{WBC} 0-0.5 [facility] Partial Thromboplastin Timeo n 10-29-2022 aPTT Coag (Bld) [Time] 30.5 s Normal 25.1-36.5 [facility] Comment on above: Result Comment: A he matocrit value greater than 55% may lead to inaccurate results in coagulation testing. Patients having hematocrit values >55% require a special collection tube for coagulation studies. Please contact the laboratory at [phone] for redraw instructions.PERFORMED BY:[facility] [place], [place] [id number] MEDICAL DIRECTORRAMEZ LARSON M.D. Performed By: #### C MP, CK, HS TROP, CBC, PT, BNP, PTT ####[facility] [place] [address] [facility] Platelet mean volume Auto (B ld) [Entitic vol]Ordered By: Azar Palmer on 09-19-2023 Platelet mean volume (Bld) [Entitic vol] 7.7 fL 6.3-10.7 [facility] Platelets Auto (Bld) [#/Vol] Ordered By: Azar Palmer on 10-29-2022 Platelets (Bld) [#/Vol] 371 10*3/uL 150-450 [facility] Potassium [Moles/volume] in Serum or PlasmaOrdered By: Azar Palmer on 10-29-2022 Potassium [Moles/Vol] 3.7 mmol/L 3.5-5.1 [facility] Protein [Mass/volume] in Ser um or PlasmaOrdered By: Azar Palmer on 10-29-2022 Protein [Mass/Vol] 7.6 g/dL 6.4-8.9 [facility] Prothrombin Time INRon 10-29 INR Coag (PPP) [Relative time] 1.1 {INR} Normal [facility] Comment on above: Result Comment: INR Therapeutic Range A) Pre- and Peroperative OAT started two weeks before surgery. NOT HIP SURGERY: 1.5 - 2.5 HIP SURGERY: 2 - 3 B) Primary and secondary prevention of venous THROMBOSIS: 2 - 3 C) Active venous thrombosis, pulmonary embolism and prevention of recurrent venous thrombosis: 2 - 3 D) Prevention of arterial thromboembolism including patients with mechanical heart valves: 3 - 4.5 Performed By: #### C MP, CK, HS TROP, CBC, PT, BNP, PTT ####[facility] [id number] [place] [id number] [facility] PT Coag (PPP) [Time] 12.5 s Normal 9.0-12.9 [facility] Comment on above: Result Comment: A he matocrit value greater than 55% may lead to inaccurate results in coagulation testing. Patients having hematocrit values >55% require a special collection tube for coagulation studies. Please contact the laboratory at [phone] for redraw instructions. Performed By: #### C MP, CK, HS TROP, CBC, PT, BNP, PTT ####[facility] [id number] [place] [address] [facility] Prothrombin time (PT)Ordered By: Azar Palmer on 10-29-2022 PT Coag (PPP) [Time] 12.5 s 9.0-12.9 [facility] Comment on above: A hematocrit value g reater than 55% may lead to inaccurate results in coagulation testing. Patients having hematocrit values >55% require a special collection tube for coagulation studies. Please contact the laboratory at [phone] for redraw instructions. RBC Auto (Bld) [#/Vol]Ordere d By: Azar Palmer on 10-29-2022 RBC (Bld) [#/Vol] 3.55 10*6/uL 3.60-5.00 [facility] Serum or plasma albumin/glob ulin mass ratioOrdered By: Azar Palmer on 10-29-2022 Albumin/Globulin [Mass ratio] 0.9 {ratio} [facility] Serum or plasma anion gap de terminationOrdered By: Azar Palmer on 10-29-2022 Anion gap [Moles/Vol] 17.4 mmol/L 6.0-15.0 [facility] Sodium [Moles/volume] in Ser um or PlasmaOrdered By: Azar Palmer on 10-29-2022 Sodium [Moles/Vol] 127 mmol/L 136-145 [facility] Troponin I High Sensitivityo n 10-29-2022 Troponin I High Sensitivity 33.1 pg/mL High 0.0-15.0 [facility] Comment on above: Result Comment: PERF ORMED BY:[facility] [place], [place] [phone] MEDICAL DIRECTORRAMEZ LARSON M.D. Performed By: #### C MP, CK, HS TROP, CBC, PT, BNP, PTT ####[facility] [place] [address] [facility] Troponin I.cardiac [Mass/vol ume] in Serum or Plasma by Detection limit <= 0.01 ng/Ordered By: Azar Palmer on 10-29-2022 Troponin I.cardiac DL <= 0.01 ng/mL [Mass/Vol] 33.1 pg/mL 0.0-15.0 [facility] Urea nitrogen [Mass/volume] in Serum or PlasmaOrdered By: Azar Palmer on 10-29-2022 Urea nitrogen [Mass/Vol] 63 mg/dL 7-25 [facility] WBC Auto (Bld) [#/Vol]Ordere d By: Azar Palmer on 10-29-2022 WBC (Bld) [#/Vol] 6.7 10*3/uL 3.8-11.6 [facility] Office Visiton 10-04-2022 Follow-up visit [id number] Wilbert Wilson 1945 F Date Provider Department Center 10/04/2022 120-PRASHANTH, LAURA AYDEN CARD [facility] No family history on file Level of Service:70466 [place] OFFICE/OUTPATIENT ESTABLISHED MOD MDM 30-39 MIN Normal [facility] Office Visiton 09-09-2022 Follow-up visit [id number] Wilbert Wilson 1945 F Date Provider Department Center 09/09/2022 120-PRASHANTH, LAURA BH CARD [facility] No family history on file Level of Service:91542 [place] OFFICE/OUTPATIENT ESTABLISHED LOW MDM 20-29 MIN Normal [facility] Office Visiton 08-06-2022 Follow-up visit [id number] Wilbert Wilson 1945 F Date Provider Department Center 08/06/2022 120-PRASHANTH, LAURA AYDEN CARD [facility] No family history on file Level of Service:06870 [place] OFFICE/OUTPATIENT ESTABLISHED MOD MDM 30-39 MIN Normal [facility] MG MAMM SCREEN TRI W CADon 0 05-31-2022 MG MAMM SCREEN TRI W CAD Normal [facility] Albumin [Mass/volume] in Ser um or Plasma by Bromocresol green (BCG) dye binding methoOrdered By: Narinder Toussaint on 05-20-2022 Albumin BCG dye [Mass/Vol] 3.2 g/dL 3.5-5.7 [facility] Basophils Auto (Bld) [#/Vol] Ordered By: Jamal Schaefer on 05-20-2022 Basophils (Bld) [#/Vol] 0.0 10*3/uL 0.0-0.2 [facility] Basophils/100 WBC Auto (Bld) Ordered By: Jamal Schaefer on 05-20-2022 Basophils/100 WBC (Bld) 0.6 % . F [facility] Calcium [Mass/volume] in Ser um or PlasmaOrdered By: Narinder Toussaint on 05-20-2022 Calcium [Mass/Vol] 9.4 mg/dL 8.6-10.3 [facility] Carbon dioxide, total [Moles /volume] in Serum or PlasmaOrdered By: Narinder Toussaint on 05-20-2022 CO2 [Moles/Vol] 28.1 mmol/L 21.0-31.0 [facility] Chloride [Moles/volume] in S steffanie or PlasmaOrdered By: Narinder Toussaint on 05-20-2022 Chloride [Moles/Vol] 97 mmol/L 98-107 [facility] Complete Blood Count Auto Di ffon 05-20-2022 Basophils (Bld) [#/Vol] 0.0 10*3/uL Normal 0.0-0.2 [facility] Comment on above: Result Comment: PERF ORMED BY:[address] [place], [place] [phone] MEDICAL DIRECTORRAMEZ LARSON M.D. Performed By: #### C BC ####[place] [id number] [facility] Basophils/100 WBC (Bld) 0.6 % Normal . F [facility] Comment on above: Performed By: #### C BC ####[address] [address] [facility] Eosinophils (Bld) [#/Vol] 0.5 10*3/uL High 0.0-0.45 [facility] Comment on above: Performed By: #### C BC ####[address] [address] [facility] Eosinophils/100 WBC (Bld) 6.3 % Normal . [facility] Comment on above: Performed By: #### C BC ####[place] [id number] [facility] Erythrocyte distribution width (RBC) [Ratio] 18.5 % High 11.9-15.3 [facility] Comment on above: Performed By: #### C BC ####[address] Hematocrit (Bld) [Volume fraction] 25.5 % Low 34.0-46.4 [facility] Comment on above: Performed By: #### C BC ####[address] Hemoglobin (Bld) [Mass/Vol] 8.3 g/dL Low 11.8-15.4 [facility] Comment on above: Performed By: #### C BC ####[address] Lymphocytes (Bld) [#/Vol] 1.0 10*3/uL Normal 1.00-4.8 [facility] Comment on above: Performed By: #### C BC ####[address] Lymphocytes/100 WBC (Bld) 12.8 % Normal . [facility] Comment on above: Performed By: #### C BC ####[address] MCH (RBC) [Entitic mass] 30.4 pg Normal 24.7-34.3 [facility] Comment on above: Performed By: #### C BC ####[address] MCV (RBC) [Entitic vol] 92.7 fL Normal 80-100 F [facility] Comment on above: Performed By: #### C BC ####[address] Mean Corpuscular HGB Conc 32.8 g/dL Normal 32.0-35.0 [facility] Comment on above: Performed By: #### C BC ####[place] [id number] [facility] Monocytes (Bld) [#/Vol] 1.0 10*3/uL High 0.0-0.8 [facility] Comment on above: Performed By: #### C BC ####[address] [place] [address] [place] Monocytes/100 WBC (Bld) 13.0 % Normal . F [facility] Comment on above: Performed By: #### C BC ####[place] [id number] [facility] Neutrophils (Bld) [#/Vol] 5.2 10*3/uL Normal 1.8-7.7 [facility] Comment on above: Performed By: #### C BC ####[place] [id number] [facility] Neutrophils/100 WBC (Bld) 67.3 % Normal . [facility] Comment on above: Performed By: #### C BC ####[address] NRBC% 0.0 /100{WBC} Normal 0-0.5 [facility] Comment on above: Performed By: #### C BC ####[place] [id number] [facility] Platelet mean volume (Bld) [Entitic vol] 7.5 fL Normal 6.3-10.7 [facility] Comment on above: Performed By: #### C BC ####[place] [id number] [facility] Platelets (Bld) [#/Vol] 241 10*3/uL Normal 150-450 [facility] Comment on above: Performed By: #### C BC ####[place] [id number] [facility] RBC (Bld) [#/Vol] 2.75 10*6/uL Low 3.60-5.00 [facility] Comment on above: Performed By: #### C BC ####[place] [id number] [facility] WBC (Bld) [#/Vol] 7.7 10*3/uL Normal 3.8-11.6 [facility] Comment on above: Performed By: #### C BC ####[place] [id number] [facility] Creatinine [Mass/volume] in Serum or PlasmaOrdered By: Narinder Toussaint on 05-20-2022 Creatinine [Mass/Vol] 3.81 mg/dL 0.60-1.20 [facility] Comment on above: Delta: 2.90 on 05/19-0430 Eosinophils Auto (Bld) [#/Vo l]Ordered By: Jamal Schaefer on 05-20-2022 Eosinophils (Bld) [#/Vol] 0.5 10*3/uL 0.0-0.45 [facility] Eosinophils/100 WBC Auto (Bl d)Ordered By: Jamal Schaefer on 05-20-2022 Eosinophils/100 WBC (Bld) 6.3 % . [facility] Erythrocyte distribution wid th Auto (RBC) [Ratio]Ordered By: Jamal Schaefer on 05-20-2022 Erythrocyte distribution width (RBC) [Ratio] 18.5 % 11.9-15.3 [facility] Glucose Glucometer (BldC) [M ass/Vol]Ordered By: Teresa Pagan on 05-20-2022 Glucose [Mass/Vol] 107 mg/dL [facility] Comment on above: Random Glucose Refer ence Range is dependent on time and content of last meal. Glucose of more than 200 mg/dL in a nonstressed, ambulatory subject supports the diagnosis of Diabetes Mellitus. Glucose Poct Glucometerson 0 05-20-2022 Commemt1 Glu2: Cleaned Meter Normal [facility] Comment on above: Result Comment: PERF ORMED BY:[facility] [place], [place] [phone] MEDICAL DIRECTORRAMEZ LARSON M.D. Performed By: #### G LULS ####Point of Care testing, Glucose [Mass/Vol] 107 mg/dL Normal [facility] Comment on above: Result Comment: [place] Glucose Reference Range is dependent on time and content of last meal. Glucose of more than 200 mg/dL in a nonstressed, ambulatory subject supports the diagnosis of Diabetes Mellitus. Performed By: #### G LULS ####Point of Care testing, Glucose [Mass/Vol] 155 mg/dL Normal [facility] Comment on above: Result Comment: [place] om Glucose Reference Range is dependent on time and content of last meal. Glucose of more than 200 mg/dL in a nonstressed, ambulatory subject supports the diagnosis of Diabetes Mellitus.PERFORMED BY:[facility] [place]SON [phone] MEDICAL DIRECTORRAMEZ LARSON M.D. Performed By: #### G DAVID ####Point of Care testing, Glucose [Mass/volume] in Ser um or PlasmaOrdered By: Narinder Toussaint on 05-20-2022 Glucose [Mass/Vol] 103 mg/dL 70-100 [facility] Comment on above: ADA recommended refe rence rangeRandom Glucose Reference Range is dependent on time and content of last meal. Glucose of more than 200 mg/dL in a nonstressed, ambulatory subject supports the diagnosis of Diabetes Mellitus. Hematocrit Auto (Bld) [Volum e fraction]Ordered By: Jamal Schaefer on 05-20-2022 Hematocrit (Bld) [Volume fraction] 25.5 % 34.0-46.4 [facility] Hemoglobin [Mass/volume] in BloodOrdered By: Jamal Schaefer on 05-20-2022 Hemoglobin (Bld) [Mass/Vol] 8.3 g/dL 11.8-15.4 [facility] Leukocytes [#/volume] correc tr for nucleated erythrocytes in Blood by Automated counOrdered By: Jamal Schaefer on 05-20-2022 WBC corrected for nucl RBC Auto (Bld) [#/Vol] 7.7 10*3/uL 3.8-11.6 [facility] Lymphocytes Auto (Bld) [#/Vo l]Ordered By: Jamal Schaefer on 05-20-2022 Lymphocytes (Bld) [#/Vol] 1.0 10*3/uL 1.00-4.8 [facility] Lymphocytes/100 WBC Auto (Bl d)Ordered By: Jamal Schaefer on 05-20-2022 Lymphocytes/100 WBC (Bld) 12.8 % . [facility] MCH Auto (RBC) [Entitic mass ]Ordered By: Jamal Schaefer on 05-20-2022 MCH (RBC) [Entitic mass] 30.4 pg 24.7-34.3 [facility] MCHC Auto (RBC) [Mass/Vol]Or dered By: Jamal Schaefer on 05-20-2022 MCHC (RBC) [Mass/Vol] 32.8 g/dL 32.0-35.0 [facility] MCV Auto (RBC) [Entitic vol] Ordered By: Jamal Schaefer on 05-20-2022 MCV (RBC) [Entitic vol] 92.7 fL 80-100 [facility] Monocytes Auto (Bld) [#/Vol] Ordered By: Jamal Schaefer on 05-20-2022 Monocytes (Bld) [#/Vol] 1.0 10*3/uL 0.0-0.8 [facility] Monocytes/100 WBC Auto (Bld) Ordered By: Jamal Schaefer on 05-20-2022 Monocytes/100 WBC (Bld) 13.0 % . F [facility] Neutrophils Auto (Bld) [#/Vo l]Ordered By: Jamal Schaefer on 05-20-2022 Neutrophils (Bld) [#/Vol] 5.2 10*3/uL 1.8-7.7 [facility] Neutrophils/100 WBC Auto (Bl d)Ordered By: Jamal Schaefer on 05-20-2022 Neutrophils/100 WBC (Bld) 67.3 % . [facility] No Panel InformationOrdered By: Teresa Pagan on 05-20-2022 Bedside Glucose Comment Glu2: cleaned meter [facility] No Panel InformationOrdered By: Narinder Toussaint on 05-20-2022 Estimated GFR (CKD-EPI) 11.801 mL/Min [facility] Pharmacy Creatinine Clearance (Chem 11.02 [facility] Nucleated erythrocytes [Pres ence] in Blood by Automated countOrdered By: Jamal Schaefer on 05-20-2022 Nucleated RBC Auto Ql (Bld) 0.0 /100{WBC} 0-0.5 [facility] Phosphate [Mass/volume] in S steffanie or PlasmaOrdered By: Narinder Toussaint on 04-10-2023 Phosphate [Mass/Vol] 4.1 mg/dL 3.7-7.2 [facility] Platelet mean volume Auto (B ld) [Entitic vol]Ordered By: Jamal Schaefer on 05-20-2022 Platelet mean volume (Bld) [Entitic vol] 7.5 fL 6.3-10.7 [facility] Platelets Auto (Bld) [#/Vol] Ordered By: Jamal Schaefer on 05-20-2022 Platelets (Bld) [#/Vol] 241 10*3/uL 150-450 [facility] Potassium [Moles/volume] in Serum or PlasmaOrdered By: Narinder Toussaint on 05-20-2022 Potassium [Moles/Vol] 3.7 mmol/L 3.5-5.1 [facility] RBC Auto (Bld) [#/Vol]Ordere d By: Jamal Schaefer on 05-20-2022 RBC (Bld) [#/Vol] 2.75 10*6/uL 3.60-5.00 [facility] Renal Function Panelon 05-20 Albumin [Mass/Vol] 3.2 g/dL Low 3.5-5.7 [facility] Comment on above: Performed By: #### R ENAL ####[place] [id number] Anion gap [Moles/Vol] 13.6 mmol/L Normal 6.0-15.0 [facility] Comment on above: Performed By: #### R ENAL ####[place] [address] [place] [id number] [facility] Calcium [Mass/Vol] 9.4 mg/dL Normal 8.6-10.3 [facility] Comment on above: Performed By: #### R ENAL ####[place] [address] [place] [id number] [facility] Chloride [Moles/Vol] 97 mmol/L Low 98-107 [facility] Comment on above: Performed By: #### R ENAL ####[place] [address] [place] [id number] [facility] CO2 [Moles/Vol] 28.1 mmol/L Normal 21.0-31.0 [facility] Comment on above: Performed By: #### R ENAL ####[place] [address] [place] [address] [facility] Creatinine [Mass/Vol] 3.81 mg/dL Significan t change up 0.60-1.20 [facility] Comment on above: Performed By: #### R ENAL ####[address] [address] [facility] Creatinine Clr Calc Pharmacy 11.02 [facility] Comment on above: Result Comment: PERF ORMED BY:[address] [place], [place] [phone] MEDICAL DIRECTORRAMEZ LARSON M.D. Performed By: #### R ENAL ####[address] [address] [facility] GFR/1.73 sq M.predicted MDRD (S/P/Bld) [Vol rate/Area] 11.801 mL/min/{1.73_m2} [facility] Comment on above: Performed By: #### R ENAL ####[address] [address] [facility] Glucose [Mass/Vol] 103 mg/dL High 70-100 [facility] Comment on above: Result Comment: [place] Glucose Reference Range is dependent on time and content of last meal. Glucose of more than 200 mg/dL in a nonstressed, ambulatory subject supports the diagnosis of Diabetes Mellitus. ADA recommended reference range Performed By: #### R ENAL ####[place] [address] [place] [address] [facility] Phosphate [Mass/Vol] 4.1 mg/dL Normal 3.7-7.2 [facility] Comment on above: Performed By: #### R ENAL ####[place] [address] [place] [address] [facility] Potassium [Moles/Vol] 3.7 mmol/L Normal 3.5-5.1 [facility] Comment on above: Performed By: #### R ENAL ####[facility] [id number] [place] [address] [facility] Sodium [Moles/Vol] 135 mmol/L Low 136-145 [facility] Comment on above: Performed By: #### R ENAL ####[facility] [address] [place] [address] [facility] Urea nitrogen [Mass/Vol] 38 mg/dL High 09-03 [facility] Comment on above: Performed By: #### R ENAL ####[facility] [address] [place] [address] [facility] Serum or plasma anion gap de terminationOrdered By: Narinder Toussaint on 05-20-2022 Anion gap [Moles/Vol] 13.6 mmol/L 6.0-15.0 [facility] Sodium [Moles/volume] in Ser um or PlasmaOrdered By: Narinder Toussaint on 05-20-2022 Sodium [Moles/Vol] 135 mmol/L 136-145 [facility] Urea nitrogen [Mass/volume] in Serum or PlasmaOrdered By: Narinder Toussaint on 05-20-2022 Urea nitrogen [Mass/Vol] 38 mg/dL 09-03 [facility] WBC Auto (Bld) [#/Vol]Ordere d By: Jamal Schaefer on 05-20-2022 WBC (Bld) [#/Vol] 7.7 10*3/uL 3.8-11.6 [facility] Basic Metabolic Panelon Anion gap [Moles/Vol] 9.3 mmol/L Normal 6.0-15.0 [facility] Comment on above: Performed By: #### C BC, BMP ####[facility] [address] [place] [address] [facility] Calcium [Mass/Vol] 9.2 mg/dL Normal 8.6-10.3 [facility] Comment on above: Performed By: #### C BC, BMP ####[place] [address] [place] [address] [facility] Chloride [Moles/Vol] 95 mmol/L Low 98-107 [facility] Comment on above: Performed By: #### C BC, BMP ####[facility] [place] [address] [facility] CO2 [Moles/Vol] 31.6 mmol/L High 21.0-31.0 [facility] Comment on above: Performed By: #### C BC, BMP ####[facility] [place] [address] [facility] Creatinine [Mass/Vol] 2.90 mg/dL High 0.60-1.20 [facility] Comment on above: Performed By: #### C BC, BMP ####[place] [address] [place] [address] [facility] Creatinine Clr Calc Pharmacy 14.47 [facility] Comment on above: Result Comment: PERF ORMED BY:[address] [place], [place] [phone] MEDICAL DIRECTORRAMEZ LARSON M.D. Performed By: #### C BC, BMP ####[place] [address] [place] [address] [facility] GFR/1.73 sq M.predicted MDRD (S/P/Bld) [Vol rate/Area] 16.373 mL/min/{1.73_m2} [facility] Comment on above: Performed By: #### C BC, BMP ####[place] [address] [place] [address] [facility] Glucose [Mass/Vol] 118 mg/dL High 70-100 [facility] Comment on above: Result Comment: [place] Glucose Reference Range is dependent on time and content of last meal. Glucose of more than 200 mg/dL in a nonstressed, ambulatory subject supports the diagnosis of Diabetes Mellitus. ADA recommended reference range Performed By: #### C BC, BMP ####[facility] [place] [address] [facility] Potassium [Moles/Vol] 3.9 mmol/L Normal 3.5-5.1 [facility] Comment on above: Performed By: #### C BC, BMP ####[facility] [place] [address] [facility] Sodium [Moles/Vol] 132 mmol/L Low 136-145 [facility] Comment on above: Performed By: #### C REBECCA, BMP ####[place] [address] [place] [id number] [facility] Urea nitrogen [Mass/Vol] 30 mg/dL High 7-25 [facility] Comment on above: Performed By: #### C REBECCA, BMP ####[place] [id number] [facility] Complete Blood Count Auto Di ffon 05-19-2022 Basophils (Bld) [#/Vol] 0.0 10*3/uL Normal 0.0-0.2 [facility] Comment on above: Result Comment: PERF ORMED BY:[address] [place] [phone] MEDICAL DIRECTORRAMEZ LARSON M.D. Performed By: #### C REBECCA, BMP ####[place] [id number] [facility] Basophils/100 WBC (Bld) 0.7 % Normal . [facility] Comment on above: Performed By: #### C REBECCA, BMP ####[place] [id number] [facility] Eosinophils (Bld) [#/Vol] 0.5 10*3/uL High 0.0-0.45 [facility] Comment on above: Performed By: #### C REBECCA, BMP ####[place] [address] [facility] Eosinophils/100 WBC (Bld) 7.4 % Normal . [facility] Comment on above: Performed By: #### C REBECCA, BMP ####[place] [id number] [facility] Erythrocyte distribution width (RBC) [Ratio] 19.2 % High 11.9-15.3 [facility] Comment on above: Performed By: #### C REBECCA, BMP ####[place] [id number] [facility] Hematocrit (Bld) [Volume fraction] 23.8 % Low 34.0-46.4 [facility] Comment on above: Performed By: #### C REBECCA, BMP ####[address] Hemoglobin (Bld) [Mass/Vol] 7.7 g/dL Low 11.8-15.4 [facility] Comment on above: Performed By: #### C REBECCA, BMP ####[address] Lymphocytes (Bld) [#/Vol] 1.1 10*3/uL Normal 1.00-4.8 [facility] Comment on above: Performed By: #### C REBECCA, BMP ####[address] Lymphocytes/100 WBC (Bld) 16.8 % Normal . [facility] Comment on above: Performed By: #### C REBECCA, BMP ####[address] MCH (RBC) [Entitic mass] 30.0 pg Normal 24.7-34.3 [facility] Comment on above: Performed By: #### C REBECCA, BMP ####[address] MCV (RBC) [Entitic vol] 93.2 fL Normal 80-100 F [facility] Comment on above: Performed By: #### C REBECCA, BMP ####[address] Mean Corpuscular HGB Conc 32.2 g/dL Normal 32.0-35.0 [facility] Comment on above: Performed By: #### C REBECCA, BMP ####[address] Monocytes (Bld) [#/Vol] 1.0 10*3/uL High 0.0-0.8 [facility] Comment on above: Performed By: #### C REBECCA, BMP ####[address] [place] [address] [facility] Monocytes/100 WBC (Bld) 15.4 % Normal . F [facility] Comment on above: Performed By: #### C BC, BMP ####[address] [address] [facility] Neutrophils (Bld) [#/Vol] 3.9 10*3/uL Normal 1.8-7.7 [facility] Comment on above: Performed By: #### C REBECCA, BMP ####[place] [id number] [facility] Neutrophils/100 WBC (Bld) 59.7 % Normal . [facility] Comment on above: Performed By: #### C REBECCA, BMP ####[place] [id number] [facility] NRBC% 0.1 /100{WBC} Normal 0-0.5 [facility] Comment on above: Performed By: #### C REBECCA, BMP ####[place] [id number] [facility] Platelet mean volume (Bld) [Entitic vol] 7.5 fL Normal 6.3-10.7 [facility] Comment on above: Performed By: #### C REBECCA, BMP ####[address] [address] [facility] Platelets (Bld) [#/Vol] 226 10*3/uL Normal 150-450 [facility] Comment on above: Performed By: #### C REBECCA, BMP ####[place] [id number] [facility] RBC (Bld) [#/Vol] 2.55 10*6/uL Low 3.60-5.00 [facility] Comment on above: Performed By: #### C BC, BMP ####[place] [id number] [facility] WBC (Bld) [#/Vol] 6.6 10*3/uL Normal 3.8-11.6 [facility] Comment on above: Performed By: #### C BC, BMP ####[facility] [address] [place] [address] [facility] Glucose Poct Glucometerson 0 05-19-2022 Commemt1 Glu2: Cleaned Meter [facility] Comment on above: Result Comment: PERF ORMED BY:[address] [place] [address] [address] [place] [phone] MEDICAL DIRECTORRAMEZ LARSON M.D. Performed By: #### G LULS ####Point of Care testing, Glucose [Mass/Vol] 127 mg/dL Normal [facility] Comment on above: Result Comment: [place] om Glucose Reference Range is dependent on time and content of last meal. Glucose of more than 200 mg/dL in a nonstressed, ambulatory subject supports the diagnosis of Diabetes Mellitus. Performed By: #### G LULS ####Point of Care testing, Glucose [Mass/Vol] 126 mg/dL Normal [facility] Comment on above: Result Comment: [place] om Glucose Reference Range is dependent on time and content of last meal. Glucose of more than 200 mg/dL in a nonstressed, ambulatory subject supports the diagnosis of Diabetes Mellitus.PERFORMED BY:[place] [address] [address] [place]HAElLuciaJARET[place]MC[place], [place] [phone] MEDICAL MAJOR LARSON M.D. Performed By: #### G LULS ####Point of Care testing, Glucose [Mass/Vol] 185 mg/dL Normal [facility] Comment on above: Result Comment: [place] om Glucose Reference Range is dependent on time and content of last meal. Glucose of more than 200 mg/dL in a nonstressed, ambulatory subject supports the diagnosis of Diabetes Mellitus.PERFORMED BY:[address] [place] [address] [address] [place]HAElLuciaJARET[place]MC[place], [place] [phone] MEDICAL DIRECTORRAMEZ LARSON M.D. Performed By: #### G LULS ####Point of Care testing, Commemt1 Glu2: Cleaned Meter [facility] Comment on above: Result Comment: PERF ORMED BY:[place] [place] [address] [address] [place], [place] [phone] MEDICAL DIRECTORRAMEZ LARSON M.D. Performed By: #### G DAVID ####Point of Care testing, Glucose [Mass/Vol] 128 mg/dL Normal [facility] Comment on above: Result Comment: [facility] Glucose Reference Range is dependent on time and content of last meal. Glucose of more than 200 mg/dL in a nonstressed, ambulatory subject supports the diagnosis of Diabetes Mellitus. Performed By: #### G LULS ####Point of Care testing, Troponin I High Sensitivityo n 05-19-2022 Troponin I High Sensitivity 47.8 pg/mL High 0.0-15.0 [facility] Comment on above: Result Comment: PERF ORMED BY:[address] JOSHIJARETTMCKEES[place], [place] [phone] MEDICAL DIRECTORRAMEZ LARSON M.D. Performed By: #### H S TROP ####[address] [address] [place] [address] [facility] Troponin I.cardiac [Mass/vol ume] in Serum or Plasma by Detection limit <= 0.01 ng/Ordered By: Jamal Schaefer on 05-19-2022 Troponin I.cardiac DL <= 0.01 ng/mL [Mass/Vol] 47.8 pg/mL 0.0-15.0 [facility] Basic Metabolic Panelon 04- Anion gap [Moles/Vol] 12.1 mmol/L Normal 6.0-15.0 [facility] Comment on above: Performed By: #### C BC, BMP ####[facility] [place] [address] [facility] Calcium [Mass/Vol] 9.3 mg/dL Normal 8.6-10.3 [facility] Comment on above: Performed By: #### C BC, BMP ####[facility] [place] [address] [facility] Chloride [Moles/Vol] 94 mmol/L Low 98-107 [facility] Comment on above: Performed By: #### C BC, BMP ####[facility] [place] [address] [facility] CO2 [Moles/Vol] 30.7 mmol/L Normal 21.0-31.0 [facility] Comment on above: Performed By: #### C BC, BMP ####[address] [address] [place] [address] [facility] Creatinine [Mass/Vol] 3.33 mg/dL Significan t change up 0.60-1.20 [facility] Comment on above: Performed By: #### C BC, BMP ####[address] [address] [place] [address] [facility] Creatinine Clr Calc Pharmacy 12.61 [facility] Comment on above: Result Comment: PERF ORMED BY:[address] [place], [place] [phone] MEDICAL DIRECTORRAMEZ LARSON M.D. Performed By: #### C REBECCA, BMP ####[place] [id number] [facility] GFR/1.73 sq M.predicted MDRD (S/P/Bld) [Vol rate/Area] 13.870 mL/min/{1.73_m2} [facility] Comment on above: Performed By: #### C REBECCA, BMP ####[address] [address] [facility] Glucose [Mass/Vol] 156 mg/dL High 70-100 [facility] Comment on above: Result Comment: [place] Glucose Reference Range is dependent on time and content of last meal. Glucose of more than 200 mg/dL in a nonstressed, ambulatory subject supports the diagnosis of Diabetes Mellitus. ADA recommended reference range Performed By: #### C BC, BMP ####[address] [address] [place] [address] [facility] Potassium [Moles/Vol] 3.8 mmol/L Normal 3.5-5.1 [facility] Comment on above: Performed By: #### C BC, BMP ####[place] [address] [place] Sodium [Moles/Vol] 133 mmol/L Low 136-145 [facility] Comment on above: Performed By: #### C BC, BMP ####[address] Urea nitrogen [Mass/Vol] 35 mg/dL High 7-25 [facility] Comment on above: Performed By: #### C BC, BMP ####[place] [address] [facility] Complete Blood Count Auto Di ffon 05-18-2022 Basophils (Bld) [#/Vol] 0.0 10*3/uL Normal 0.0-0.2 [facility] Comment on above: Result Comment: PERF ORMED BY:[address] [place], [place] [phone] MEDICAL DIRECTORRAMEZ LARSON M.D. Performed By: #### C BC, BMP ####[address] Basophils/100 WBC (Bld) 0.7 % Normal . F [facility] Comment on above: Performed By: #### C BC, BMP ####[address] Eosinophils (Bld) [#/Vol] 0.2 10*3/uL Normal 0.0-0.45 [facility] Comment on above: Performed By: #### C BC, BMP ####[address] Eosinophils/100 WBC (Bld) 2.4 % Normal . [facility] Comment on above: Performed By: #### C BC, BMP ####[address] Erythrocyte distribution width (RBC) [Ratio] 19.4 % High 11.9-15.3 [facility] Comment on above: Performed By: #### C BC, BMP ####[place] [address] [facility] Hematocrit (Bld) [Volume fraction] 28.8 % Low 34.0-46.4 [facility] Comment on above: Performed By: #### C BC, BMP ####[address] Hemoglobin (Bld) [Mass/Vol] 9.2 g/dL Low 11.8-15.4 [facility] Comment on above: Performed By: #### C BC, BMP ####[place] [address] [facility] Lymphocytes (Bld) [#/Vol] 1.1 10*3/uL Normal 1.00-4.8 [facility] Comment on above: Performed By: #### C BC, BMP ####[address] Lymphocytes/100 WBC (Bld) 18.3 % Normal . [facility] Comment on above: Performed By: #### C BC, BMP ####[address] MCH (RBC) [Entitic mass] 29.6 pg Normal 24.7-34.3 [facility] Comment on above: Performed By: #### C BC, BMP ####[address] MCV (RBC) [Entitic vol] 92.7 fL Normal 80-100 F [facility] Comment on above: Performed By: #### C BC, BMP ####[place] [address] [facility] Mean Corpuscular HGB Conc 31.9 g/dL Low 32.0-35.0 [facility] Comment on above: Performed By: #### C BC, BMP ####[place] [address] [facility] Monocytes (Bld) [#/Vol] 1.1 10*3/uL High 0.0-0.8 [facility] Comment on above: Performed By: #### C BC, BMP ####[place] [address] [facility] Monocytes/100 WBC (Bld) 16.9 % Normal . [facility] Comment on above: Performed By: #### C BC, BMP ####[address] [address] [facility] Neutrophils (Bld) [#/Vol] 3.8 10*3/uL Normal 1.8-7.7 [facility] Comment on above: Performed By: #### C BC, BMP ####[address] [address] [facility] Neutrophils/100 WBC (Bld) 61.7 % Normal . [facility] Comment on above: Performed By: #### C BC, BMP ####[address] [address] [facility] NRBC% 0.0 /100{WBC} Normal 0-0.5 [facility] Comment on above: Performed By: #### C BC, BMP ####[address] [address] [facility] Platelet mean volume (Bld) [Entitic vol] 8.0 fL Normal 6.3-10.7 [facility] Comment on above: Performed By: #### C BC, BMP ####[address] [address] [facility] Platelets (Bld) [#/Vol] 239 10*3/uL Normal 150-450 [facility] Comment on above: Performed By: #### C BC, BMP ####[address] [address] [facility] RBC (Bld) [#/Vol] 3.11 10*6/uL Low 3.60-5.00 [facility] Comment on above: Performed By: #### C BC, BMP ####[address] [address] [facility] WBC (Bld) [#/Vol] 6.2 10*3/uL Normal 3.8-11.6 [facility] Comment on above: Performed By: #### C BC, BMP ####[address] [address] [place] ECG 12 lead ECGon 05-18-2022 ECG 12 lead ECG Normal [facility] Glucose Poct Glucometerson 0 05-18-2022 Commemt1 Glu2: Cleaned Meter Normal [facility] Comment on above: Result Comment: PERF ORMED BY:[place] [address] [address] [place], [place] [phone] MEDICAL DIRECTORRAMEZ LARSON M.D. Performed By: #### G LULS ####Point of Care testing, Glucose [Mass/Vol] 253 mg/dL Normal [facility] Comment on above: Result Comment: [facility] Glucose Reference Range is dependent on time and content of last meal. Glucose of more than 200 mg/dL in a nonstressed, ambulatory subject supports the diagnosis of Diabetes Mellitus. Performed By: #### G LULS ####Point of Care testing, Glucose [Mass/Vol] 233 mg/dL Normal [facility] Comment on above: Result Comment: [facility] Glucose Reference Range is dependent on time and content of last meal. Glucose of more than 200 mg/dL in a nonstressed, ambulatory subject supports the diagnosis of Diabetes Mellitus.PERFORMED BY:[place] [place] [address] [address] [place]NDONLuciaJARETTMC[place], [place] [phone] MEDICAL MAJOR LARSON M.D. Performed By: #### G LULS ####Point of Care testing, Glucose [Mass/Vol] 129 mg/dL Normal [facility] Comment on above: Result Comment: [facility] Glucose Reference Range is dependent on time and content of last meal. Glucose of more than 200 mg/dL in a nonstressed, ambulatory subject supports the diagnosis of Diabetes Mellitus.PERFORMED BY:[place] [address] [address] [place]NDONLuciaJARETTMC[place], [place] [phone] MEDICAL MAJOR LARSON M.D. Performed By: #### G LULS ####Point of Care testing, Glucose [Mass/Vol] 181 mg/dL Normal [facility] Comment on above: Result Comment: [facility] Glucose Reference Range is dependent on time and content of last meal. Glucose of more than 200 mg/dL in a nonstressed, ambulatory subject supports the diagnosis of Diabetes Mellitus.PERFORMED BY:[place] [address] [address] JOSHIJ[place]MC[place], [place] [phone] MEDICAL DIRECTORRAMEZ LARSON M.D. Performed By: #### G LULS ####Point of Care testing, Troponin I High Sensitivityo n 05-18-2022 Troponin I High Sensitivity 52.1 pg/mL Off scale high 0.0-15.0 [facility] Comment on above: Result Comment: Crit ical Result : Called to and read back by: HARRY MCNAIR at: 05/18/2022 17:47:53 by:[id number] BY:[address]ORA [place]OSHIJARETT, [place] [phone] MEDICAL DIRECTORRAMEZ LARSON M.D. Performed By: #### H S TROP ####[address] [address] [facility] Activated partial thrombopla stin time (aPTT) in platelet poor plasma by coagulation aOrdered By: Horacio Moreno on 05-17-2022 aPTT Coag (PPP) [Time] 33.0 s 25.1-36.5 [facility] Alanine aminotransferase [En zymatic activity/volume] in Serum or PlasmaOrdered By: Horacio Moreno on 05-17-2022 ALT [Catalytic activity/Vol] 19 U/L 7-52 [facility] Alkaline phosphatase [Enzyma tic activity/volume] in Serum or PlasmaOrdered By: Horacio Moreno on 05-17-2022 ALP [Catalytic activity/Vol] 146 U/L 34-104 [facility] Aspartate aminotransferase [ Enzymatic activity/volume] in Serum or PlasmaOrdered By: Horacio Moreno on 05-17-2022 AST [Catalytic activity/Vol] 19 U/L 13-39 [facility] Bilirubin.total [Mass/volume ] in Serum or PlasmaOrdered By: Horacio Moreno on 05-17-2022 Bilirubin [Mass/Vol] 0.5 mg/dL 0.3-1.[address] [facility] [address] angio abdomen pelvison CT angio abdomen pelvis Normal [facility] Complete Blood Count Auto Di ffon 05-17-2022 Basophils (Bld) [#/Vol] 0.1 10*3/uL Normal 0.0-0.2 [facility] Comment on above: Result Comment: PERF ORMED BY:[address] [place], [place] [phone] MEDICAL DIRECTORRAMEZ LARSON M.D. Performed By: #### P T, CBC, PTT, CMP ####[address] [address] [facility] Basophils/100 WBC (Bld) 0.9 % Normal . F [facility] Comment on above: Performed By: #### P T, CBC, PTT, CMP ####[address] [address] [facility] Eosinophils (Bld) [#/Vol] 0.2 10*3/uL Normal 0.0-0.45 [facility] Comment on above: Performed By: #### P T, CBC, PTT, CMP ####[address] [address] [facility] Eosinophils/100 WBC (Bld) 2.7 % Normal . [facility] Comment on above: Performed By: #### P T, CBC, PTT, CMP ####[address] [address] [facility] Erythrocyte distribution width (RBC) [Ratio] 18.6 % High 11.9-15.3 [facility] Comment on above: Performed By: #### P T, CBC, PTT, CMP ####[address] [address] [facility] Hematocrit (Bld) [Volume fraction] 36.5 % Normal 34.0-46.4 [facility] Comment on above: Performed By: #### P T, CBC, PTT, CMP ####[address] [address] [facility] Hemoglobin (Bld) [Mass/Vol] 11.7 g/dL Low 11.8-15.4 [facility] Comment on above: Performed By: #### P T, CBC, PTT, CMP ####[address] Lymphocytes (Bld) [#/Vol] 0.9 10*3/uL Low 1.00-4.8 [facility] Comment on above: Performed By: #### P T, CBC, PTT, CMP ####[address] Lymphocytes/100 WBC (Bld) 11.9 % Normal . [facility] Comment on above: Performed By: #### P T, CBC, PTT, CMP ####[address] MCH (RBC) [Entitic mass] 29.8 pg Normal 24.7-34.3 [facility] Comment on above: Performed By: #### P T, CBC, PTT, CMP ####[address] MCV (RBC) [Entitic vol] 93.0 fL Normal 80-100 [facility] Comment on above: Performed By: #### P T, CBC, PTT, CMP ####[address] Mean Corpuscular HGB Conc 32.1 g/dL Normal 32.0-35.0 [facility] Comment on above: Performed By: #### P T, CBC, PTT, CMP ####[address] Monocytes (Bld) [#/Vol] 1.0 10*3/uL High 0.0-0.8 [facility] Comment on above: Performed By: #### P T, CBC, PTT, CMP ####[address] Monocytes/100 WBC (Bld) 21.10 % High 0.00-20.00 F [facility] Comment on above: Result Comment: For adults in ED, MDW > 20.0 may be associated with a higher risk of sepsis during the first 12 hrs of hospital admission Performed By: #### P T, CBC, PTT, CMP ####[address] Monocytes/100 WBC (Bld) 13.9 % Normal . F [facility] Comment on above: Performed By: #### P T, CBC, PTT, CMP ####[address] Neutrophils (Bld) [#/Vol] 5.2 10*3/uL Normal 1.8-7.7 [facility] Comment on above: Performed By: #### P T, CBC, PTT, CMP ####[address] Neutrophils/100 WBC (Bld) 70.6 % Normal . [facility] Comment on above: Performed By: #### P T, CBC, PTT, CMP ####[address] NRBC% 0.1 /100{WBC} Normal 0-0.5 [facility] Comment on above: Performed By: #### P T, CBC, PTT, CMP ####[address] Platelet mean volume (Bld) [Entitic vol] 8.1 fL Normal 6.3-10.7 [facility] Comment on above: Performed By: #### P T, CBC, PTT, CMP ####[address] Platelets (Bld) [#/Vol] 254 10*3/uL Normal 150-450 [facility] Comment on above: Performed By: #### P T, CBC, PTT, CMP ####[address] RBC (Bld) [#/Vol] 3.92 10*6/uL Normal 3.60-5.00 [facility] Comment on above: Performed By: #### P T, CBC, PTT, CMP ####[address] WBC (Bld) [#/Vol] 7.3 10*3/uL Normal 3.8-11.6 [facility] Comment on above: Performed By: #### P T, CBC, PTT, CMP ####[address] [address] [facility] Comprehensive Metabolic Pane eliseo 05-17-2022 Albumin [Mass/Vol] 3.7 g/dL Normal 3.5-5.7 [facility] Comment on above: Performed By: #### P T, CBC, PTT, CMP ####[place] [address] [facility] Albumin/Globulin [Mass ratio] 1.1 {ratio} Normal [facility] Comment on above: Performed By: #### P T, CBC, PTT, CMP ####[place] [address] [facility] ALP [Catalytic activity/Vol] 146 U/L High 34-104 [facility] Comment on above: Performed By: #### P T, CBC, PTT, CMP ####[place] [address] [facility] ALT [Catalytic activity/Vol] 19 U/L Normal 7-52 [facility] Comment on above: Performed By: #### P T, CBC, PTT, CMP ####[place] [address] [facility] Anion gap [Moles/Vol] 12.7 mmol/L Normal 6.0-15.0 [facility] Comment on above: Performed By: #### P T, CBC, PTT, CMP ####[place] [address] [facility] AST [Catalytic activity/Vol] 19 U/L Normal 13-39 [facility] Comment on above: Performed By: #### P T, CBC, PTT, CMP ####[place] [address] [facility] Bilirubin [Mass/Vol] 0.5 mg/dL Normal 0.3-1.0 [facility] Comment on above: Performed By: #### P T, CBC, PTT, CMP ####[address] [address] [facility] Calcium [Mass/Vol] 9.6 mg/dL Normal 8.6-10.3 [facility] Comment on above: Performed By: #### P T, CBC, PTT, CMP ####[place] [address] [facility] Chloride [Moles/Vol] 92 mmol/L Low 98-107 [facility] Comment on above: Performed By: #### P T, CBC, PTT, CMP ####[address] CO2 [Moles/Vol] 30.6 mmol/L Normal 21.0-31.0 [facility] Comment on above: Performed By: #### P T, CBC, PTT, CMP ####[place] [address] [facility] Creatinine [Mass/Vol] 2.33 mg/dL High 0.60-1.20 [facility] Comment on above: Performed By: #### P T, CBC, PTT, CMP ####[address] Creatinine Clr Calc Pharmacy 18.01 [facility] Comment on above: Result Comment: PERF ORMED BY:[address] [place], [place] [phone] MEDICAL MAJOR LARSON M.D. Performed By: #### P T, CBC, PTT, CMP ####[place] [address] [facility] GFR/1.73 sq M.predicted MDRD (S/P/Bld) [Vol rate/Area] 21.291 mL/min/{1.73_m2} Normal [facility] Comment on above: Performed By: #### P T, CBC, PTT, CMP ####[place] [address] [facility] Globulin (S) [Mass/Vol] 3.3 g/dL Normal F [facility] Comment on above: Performed By: #### P T, CBC, PTT, CMP ####[address] [place] [address] [facility] Glucose [Mass/Vol] 236 mg/dL High 70-100 [facility] Comment on above: Result Comment: [place] Glucose Reference Range is dependent on time and content of last meal. Glucose of more than 200 mg/dL in a nonstressed, ambulatory subject supports the diagnosis of Diabetes Mellitus. ADA recommended reference range Performed By: #### P T, CBC, PTT, CMP ####[address] [place] [address] [facility] Potassium [Moles/Vol] 3.3 mmol/L Low 3.5-5.1 [facility] Comment on above: Performed By: #### P T, CBC, PTT, CMP ####[address] [address] [facility] Protein [Mass/Vol] 7.0 g/dL Normal 6.4-8.9 [facility] Comment on above: Performed By: #### P T, CBC, PTT, CMP ####[address] [address] [facility] Sodium [Moles/Vol] 132 mmol/L Low 136-145 [facility] Comment on above: Performed By: #### P T, CBC, PTT, CMP ####[place] [address] [facility] Urea nitrogen [Mass/Vol] 23 mg/dL Normal 7-25 [facility] Comment on above: Performed By: #### P T, CBC, PTT, CMP ####[address] [address] [facility] Globulin Calc (S) [Mass/Vol] Ordered By: Horacio Moreno on 05-17-2022 Globulin (S) [Mass/Vol] 3.3 g/dL F [facility] Glucose Poct Glucometerson 0 05-17-2022 Commemt1 Glu2: Cleaned Meter Normal [facility] Comment on above: Result Comment: PERF ORMED BY:[facility] [place], [place] [id number] MEDICAL DIRECTORRAMEZ LARSON M.D. Performed By: #### G LUANNITA ####Point of Care testing, Glucose [Mass/Vol] 148 mg/dL Normal [facility] Comment on above: Result Comment: [place] Glucose Reference Range is dependent on time and content of last meal. Glucose of more than 200 mg/dL in a nonstressed, ambulatory subject supports the diagnosis of Diabetes Mellitus. Performed By: #### G LULS ####Point of Care testing, Laboratory - CoagulationOrde red By: Horacio Moreno on 05-17-2022 PT Coag (PPP) [Time] 13.3 s 9.0-12.9 [facility] LeukoReduced RBCon 3 LeukoReduced RBC NOT AVAILABLE Normal [facility] Monocyte distribution width [Entitic volume] in Blood by AutomatedOrdered By: Horacio Moreno on 05-17-2022 Monocyte distribution width Auto (Bld) [Entitic vol] 21.10 % 0.00-20.00 [facility] Comment on above: For adults in ED, MD W > 20.0 may be associated with a higher risk of sepsis during the first 12 hrs of hospital admission No Panel InformationOrdered By: Horacio Moreno on 05-17-2022 Stool Occult Blood (TRINITY) [facility] Partial Thromboplastin Timeo n 05-17-2022 aPTT Coag (Bld) [Time] 33.0 s Normal 25.1-36.5 [facility] Comment on above: Result Comment: PERF ORMED BY:[facility] [place], [place] [id number] MEDICAL DIRECTORRAMEZ LARSON M.D. Performed By: #### P T, CBC, PTT, CMP ####[facility] [id number] [place] [address] [facility] Platelet poor plasma interna tional normalized ratio (INR) by coagulation assay (relatOrdered By: Horacio Moreno on 04-07-2023 INR Coag (PPP) [Relative time] 1.2 {INR} [facility] Comment on above: INR Therapeutic Rang e A) Pre- and Peroperative OAT started two weeks before surgery. NOT HIP SURGERY: 1.5 - 2.5 HIP SURGERY: 2 - 3B) Primary and secondary prevention of venous THROMBOSIS: 2 - 3C) Active venous thrombosis, pulmonary embolismand prevention of recurrent venous thrombosis: 2 - 3D) Prevention of arterial thromboembolismincluding patients with mechanical heart valves: 3 - 4.5 Protein [Mass/volume] in Ser um or PlasmaOrdered By: Horacio Moreno on 05-17-2022 Protein [Mass/Vol] 7.0 g/dL 6.4-8.9 [facility] Prothrombin Time INRon 05-17 INR Coag (PPP) [Relative time] 1.2 {INR} Normal [facility] Comment on above: Result Comment: INR Therapeutic Range A) Pre- and Peroperative OAT started two weeks before surgery. NOT HIP SURGERY: 1.5 - 2.5 HIP SURGERY: 2 - 3 B) Primary and secondary prevention of venous THROMBOSIS: 2 - 3 C) Active venous thrombosis, pulmonary embolism and prevention of recurrent venous thrombosis: 2 - 3 D) Prevention of arterial thromboembolism including patients with mechanical heart valves: 3 - 4.5 Performed By: #### P T, CBC, PTT, CMP ####[place] [id number] [address] PT Coag (PPP) [Time] 13.3 s High 9.0-12.9 [facility] Comment on above: Performed By: #### P T, CBC, PTT, CMP ####[address] Serum or plasma albumin/glob ulin mass ratioOrdered By: Horacio Moreno on 05-17-2022 Albumin/Globulin [Mass ratio] 1.1 {ratio} [facility] Stool Occult Bl. Scr. (Guaia c)on 05-17-2022 Stool Occult Bl. Scr. (Guaiac) [facility] Comment on above: Performed By: #### O BS-GUAIAC ####[address] Type and Screenon 05-17-2022 ABO and Rh group Nom (Bld) Blood group O Rh(D) positive Normal [facility] Comment on above: Order Comment: Trans fuse now? Y Number of units to transfuse now? 1 Result Comment: PERF ORMED BY:[facility] [id number] MEDICAL DIRECTORRAMEZ LARSON M.D. US AV Fistulaon 04-18-2022 US AV Fistula Normal [facility] CT CHEST WO CONon 04-04-2022 CT CHEST WO CON Normal [facility] Creatinine and Glomerular fi ltration rate.predicted panel (S/P/Bld)Ordered By: Narinder Toussaint on 02-27-2022 Creatinine [Mass/Vol] 3.67 mg/dL 0.44-1.03 [facility] Comment on above: Delta: 3.13 on 02/26 Erythrocyte distribution wid th Auto (RBC) [Ratio]Ordered By: Narinder Toussaint on 02-27-2022 Erythrocyte distribution width (RBC) [Ratio] 15.2 % 11.9-15.3 [facility] Estimated glomerular filtrat ion rate (GFR) non- AmericanOrdered By: Narinder Toussaint on 02-27-2022 GFR/1.73 sq M.predicted among non-blacks MDRD (S/P/Bld) [Vol rate/Area] 12 mL/Min [facility] Glucose Glucometer (BldC) [M ass/Vol]Ordered By: Simone Godoy on 02-27-2022 Glucose [Mass/Vol] 115 mg/dL [facility] Comment on above: Random Glucose Refer ence Range is dependent on time and content of last meal. Glucose of more than 200 mg/dL in a nonstressed, ambulatory subject supports the diagnosis of Diabetes Mellitus. Hematocrit Auto (Bld) [Volum e fraction]Ordered By: Narinder Toussaint on 02-27-2022 Hematocrit (Bld) [Volume fraction] 21.7 % 34.0-46.4 [facility] Hemoglobin [Mass/volume] in BloodOrdered By: Narinder Toussaint on 02-27-2022 Hemoglobin (Bld) [Mass/Vol] 6.9 g/dL 11.8-15.4 [facility] Leukocytes [#/volume] correc tr for nucleated erythrocytes in Blood by Automated counOrdered By: Narinder Toussaint on 02-27-2022 WBC corrected for nucl RBC Auto (Bld) [#/Vol] 4.6 10*3/uL 3.8-11.6 [facility] MCH Auto (RBC) [Entitic mass ]Ordered By: Narinder Toussaint on 02-27-2022 MCH (RBC) [Entitic mass] 29.6 pg 24.7-34.3 [facility] MCHC Auto (RBC) [Mass/Vol]Or dered By: Narinder Toussaint on 02-27-2022 MCHC (RBC) [Mass/Vol] 31.8 g/dL 32.0-35.0 [facility] MCV Auto (RBC) [Entitic vol] Ordered By: Narinder Toussaint on 02-27-2022 MCV (RBC) [Entitic vol] 93.0 fL 80-100 [facility] No Panel InformationOrdered By: Simone Godoy on 02-27-2022 Bedside Glucose Comment Glu2: cleaned meter [facility] No Panel InformationOrdered By: Narinder Toussaint on 02-27-2022 Estimated GFR () 15 mL/Min [facility] Comment on above: GFR estimated refere nce range: According to KDOQI guidelines, <60 ml/min/1.73m2 is sufficient to diagnose a patient with chronic kidney disease. Pharmacy Creatinine Clearance (Chem 13.28 [facility] Platelet mean volume Auto (B ld) [Entitic vol]Ordered By: Narinder Toussaint on 02-27-2022 Platelet mean volume (Bld) [Entitic vol] 8.5 fL 6.3-10.7 [facility] Platelets Auto (Bld) [#/Vol] Ordered By: Narinder Toussaint on 02-27-2022 Platelets (Bld) [#/Vol] 165 10*3/uL 150-450 [facility] RBC Auto (Bld) [#/Vol]Ordere d By: Narinder Toussaint on 02-27-2022 RBC (Bld) [#/Vol] 2.34 10*6/uL 3.60-5.00 [facility] Serum or plasma anion gap de terminationOrdered By: Narinder Toussaint on 02-27-2022 Anion gap [Moles/Vol] 14.4 mmol/L 6.0-15.0 [facility] Serum or plasma calcium eugenie urement (mass/volume)Ordered By: Narinder Toussaint on 02-27-2022 Calcium [Mass/Vol] 8.6 mg/dL 8.2-10.2 [facility] Serum or plasma chloride marciano surement (moles/volume)Ordered By: Narinder Toussaint on 02-27-2022 Chloride [Moles/Vol] 91 mmol/L 95-114 [facility] Serum or plasma glucose eugenie urement (mass/volume)Ordered By: Narinder Toussaint on 02-27-2022 Glucose [Mass/Vol] 169 mg/dL 70-100 [facility] Comment on above: ADA recommended refe rence rangeRandom Glucose Reference Range is dependent on time and content of last meal. Glucose of more than 200 mg/dL in a nonstressed, ambulatory subject supports the diagnosis of Diabetes Mellitus. Serum or plasma potassium me asurement (moles/volume)Ordered By: Narinder Toussaint on 02-27-2022 Potassium [Moles/Vol] 3.8 mmol/L 3.5-5.1 [facility] Serum or plasma sodium measu rement (moles/volume)Ordered By: Narinder Toussaint 02-27-2022 Sodium [Moles/Vol] 129 mmol/L 136-146 [facility] Serum or plasma total carbon dioxide measurement (moles/volume)Ordered By: Narinder Toussaint on 02-27-2022 CO2 [Moles/Vol] 27.4 mmol/L 22.0-30.0 [facility] Serum or plasma urea nitroge n measurement (mass/volume)Ordered By: Narinder Toussaint on 02-27-2022 Urea nitrogen [Mass/Vol] 51 mg/dL 9-[address] [facility] [address] biopsyOrdered By: Narinder nance on 02-24-2022 Transferrin [Mass/Vol] 129 mg/dL 180-380 [facility] Ferritin [Mass/volume] in Se rum or PlasmaOrdered By: Narinder Toussaint on 02-24-2022 Ferritin [Mass/Vol] 1276.1 ng/mL 11-306.8 [facility] Folate [Mass/volume] in Seru m or PlasmaOrdered By: Narinder Toussaint on 02-24-2022 Folate [Mass/Vol] ng/mL >5.9 [facility] Comment on above: Folate reference ran ge: >5.9 ng/mlThe WHO technical consultation on folate and vitamin [id number] has determined that folate concentrations lessthan 4 ng/ml are considered deficient. Hepatitis B virus surface Ag [Presence] in Serum or Plasma by ImmunoassayOrdered By: Narinder Toussaint on 02-24-2022 HBV surface Ag IA Ql Negative Negative [facility] Iron [Mass/volume] in Serum or PlasmaOrdered By: Narinder Toussaint 02-24-2022 Iron [Mass/Vol] 32 ug/dL 40-150 [facility] Iron binding capacity [Mass/ volume] in Serum or PlasmaOrdered By: Narinder Toussaint 02-24-2022 Iron binding capacity [Mass/Vol] 181 ug/dL 255-450 [facility] Iron saturation [Mass Fracti on] in Serum or PlasmaOrdered By: Narinder Toussaint 02-24-2022 Iron saturation [Mass fraction] 17.7 % 20-50 [facility] Laboratory - Chemistry and C hemistry - challengeOrdered By: Narinder Toussaint 02-24-2022 Cobalamin (Vitamin B12) [Mass/Vol] 607 pg/mL 180-914 [facility] No Panel InformationOrdered By: Narinder Toussaint on 02-24-2022 Hepatitis A IgM Antibody Negative Negative [facility] Hepatitis B Core IgM Antibody Negative Negative [facility] Hepatitis C Interpretation See comment . [facility] Comment on above: NegativeNot infected with HCV, unless recent infection issuspected or other evidence exists to indicate HCVinfection.Performed at: - [facility] [address] [id number] Director: Tyler Sprague PhD, Phone: [phone] Phosphate [Mass/volume] in S steffanie or PlasmaOrdered By: Narinder Toussaint on 02-24-2022 Phosphate [Mass/Vol] 5.8 mg/dL 2.5-4.6 [facility] Serum or plasma hepatitis C virus antibody signal/cutoff ratio by immunoassay (relatiOrdered By: Narinder Toussaint on 02-24-2022 HCV Ab Signal/Cutoff IA [Rel units/Vol] <0.1 s/co ratio 0.0-0.9 [facility] Basophils Auto (Bld) [#/Vol] Ordered By: Malika Arreaga on 02-23-2022 Basophils (Bld) [#/Vol] 0.0 10*3/uL 0.0-0.2 [facility] Basophils/100 WBC Auto (Bld) Ordered By: Malika Arreaga on 02-23-2022 Basophils/100 WBC (Bld) 0.7 % . F [facility] Eosinophils Auto (Bld) [#/Vo l]Ordered By: Malika Arreaga on 02-23-2022 Eosinophils (Bld) [#/Vol] 0.2 10*3/uL 0.0-0.45 [facility] Eosinophils/100 WBC Auto (Bl d)Ordered By: Malika Arreaga on 02-23-2022 Eosinophils/100 WBC (Bld) 4.1 % . [facility] Glucose mean value [Mass/vol ume] in Blood Estimated from glycated hemoglobinOrdered By: Malika Arreaga on 02-23-2022 Average glucose Estimated from glycated hemoglobin (Bld) [Mass/Vol] 148 mg/dL [facility] Hemoglobin A1c percentageOrd ered By: Malika Arreaga on 02-23-2022 HbA1c (Bld) [Mass fraction] 6.8 % 4.3-5.6 [facility] Comment on above: Increased risk for d iabetes: 5.7 - 6.4diabetes: >6.4glycemic control for adults with diabetes: <7.0 Lymphocytes Auto (Bld) [#/Vo l]Ordered By: Malika Arreaga on 02-23-2022 Lymphocytes (Bld) [#/Vol] 0.8 10*3/uL 1.00-4.8 [facility] Lymphocytes/100 WBC Auto (Bl d)Ordered By: Malika Arreaga on 02-23-2022 Lymphocytes/100 WBC (Bld) 15.9 % . [facility] Monocytes Auto (Bld) [#/Vol] Ordered By: Malika Arreaga on 02-23-2022 Monocytes (Bld) [#/Vol] 0.6 10*3/uL 0.0-0.8 [facility] Monocytes/100 WBC Auto (Bld) Ordered By: Malika Arreaga on 02-23-2022 Monocytes/100 WBC (Bld) 13.0 % . F [facility] Neutrophils Auto (Bld) [#/Vo l]Ordered By: Malika Arreaga on 02-23-2022 Neutrophils (Bld) [#/Vol] 3.3 10*3/uL 1.8-7.7 [facility] Neutrophils/100 WBC Auto (Bl d)Ordered By: Malika Arreaga on 02-23-2022 Neutrophils/100 WBC (Bld) 66.3 % . [facility] Nucleated erythrocytes [Pres ence] in Blood by Automated countOrdered By: Malika Arreaag on 02-23-2022 Nucleated RBC Auto Ql (Bld) 0.0 /100{WBC} 0-0.5 [facility] WBC Auto (Bld) [#/Vol]Ordere d By: Malika Arreaga on 02-23-2022 WBC (Bld) [#/Vol] 4.9 10*3/uL 3.8-11.6 [facility] Activated partial thrombopla stin time (aPTT) in platelet poor plasma by coagulation aOrdered By: Yusra Santoyo on 02-22-2022 aPTT Coag (PPP) [Time] 36.0 s 25.1-36.5 [facility] Automated erythrocytes count in urine sediment (number/area)Ordered By: Yusra Santoyo on 02-22-2022 RBC Auto (Urine sed) [#/Area] 0-1 [HPF] 0-4 [facility] Automated leukocytes count i n urine sediment (number/area)Ordered By: Yusra Santoyo on 02-22-2022 WBC Auto (Urine sed) [#/Area] 10-19 [HPF] 0-4 [facility] Bacterial blood cultureOrder ed By: Yusra Santoyo on 02-22-2022 Bacteria identified Cx Nom (Bld) NO GROWTH 5 DAYS [facility] Bacteria identified Cx Nom (Bld) NO GROWTH 5 DAYS [facility] Basophils Auto (Bld) [#/Vol] Ordered By: Yusra Santoyo on 02-22-2022 Basophils (Bld) [#/Vol] 0.0 10*3/uL 0.0-0.2 [facility] Basophils/100 WBC Auto (Bld) Ordered By: Yusra Santoyo on 02-22-2022 Basophils/100 WBC (Bld) 0.7 % . [facility] Bilirubin Test strip Ql (U)O rdered By: Yusra Santoyo on 02-22-2022 Bilirubin Ql (U) Negative Negative [facility] COVID CepheidOrdered By: Adan Santoyo on 02-22-2022 SARS-CoV-2 (COVID-19) Ab IA Ql Negative Negative [facility] Comment on above: This is a duplicate [employer] Xpert Xpress CoV-2/Flu/RSV Plus RNA by RT-PCR result to be used for statistical tracking purpose only. SARS-CoV-2 (COVID-19) RNA MADISON+probe Ql (Unsp spec) [facility] SARS-CoV-2 (COVID-19) RNA MADISON+probe Ql (Unsp spec) [facility] Color Auto (U)Ordered By: Joel Santoyo on 02-22-2022 Color (U) Yellow Yellow [facility] Creatine kinase [Enzymatic a ctivity/volume] in Serum or PlasmaOrdered By: Yusra Santoyo on 02-22-2022 CK [Catalytic activity/Vol] 54 U/L 22-269 [facility] Creatinine and Glomerular fi ltration rate.predicted panel (S/P/Bld)Ordered By: Yusra Santoyo on 02-22-2022 Creatinine [Mass/Vol] 5.19 mg/dL 0.44-1.03 [facility] Eosinophils Auto (Bld) [#/Vo l]Ordered By: Yusra Santoyo on 02-22-2022 Eosinophils (Bld) [#/Vol] 0.2 10*3/uL 0.0-0.45 [facility] Eosinophils/100 WBC Auto (Bl d)Ordered By: Yusra Santoyo on 02-22-2022 Eosinophils/100 WBC (Bld) 3.7 % . [facility] Erythrocyte distribution wid th Auto (RBC) [Ratio]Ordered By: Yusra Santoyo on 02-22-2022 Erythrocyte distribution width (RBC) [Ratio] 16.2 % 11.9-15.3 [facility] Estimated glomerular filtrat ion rate (GFR) non- AmericanOrdered By: Yusra Santoyo on 02-22-2022 GFR/1.73 sq M.predicted among non-blacks MDRD (S/P/Bld) [Vol rate/Area] 8 mL/Min [facility] Hematocrit Auto (Bld) [Volum e fraction]Ordered By: Yusra Santoyo on 02-22-2022 Hematocrit (Bld) [Volume fraction] 26.0 % 34.0-46.4 [facility] Hemoglobin [Mass/volume] in BloodOrdered By: Yusra Santoyo on 02-22-2022 Hemoglobin (Bld) [Mass/Vol] 8.2 g/dL 11.8-15.4 [facility] Ketones Auto test strip (U) [Mass/Vol]Ordered By: Yusra Santoyo on 02-22-2022 Ketones (U) [Mass/Vol] Negative [facility] - Chemistry and C hemistry - challengeOrdered By: Yusra Santoyo on 02-22-2022 Natriuretic peptide B (Bld) [Mass/Vol] 3549.0 pg/mL 5-100 [facility] Laboratory - CoagulationOrde red By: Yusra Santoyo on 02-22-2022 PT Coag (PPP) [Time] 15.6 s 9.0-12.9 [facility] Laboratory - UrinalysisOrder ed By: Yusra Santoyo on 02-22-2022 Hyaline casts LM Ql (Urine sed) 0-8 [LPF] 0-8 [facility] Leukocytes [#/volume] correc tr for nucleated erythrocytes in Blood by Automated counOrdered By: Yusra Santoyo on 02-22-2022 WBC corrected for nucl RBC Auto (Bld) [#/Vol] 6.8 10*3/uL 3.8-11.6 [facility] Lymphocytes Auto (Bld) [#/Vo l]Ordered By: Yusra Santoyo on 02-22-2022 Lymphocytes (Bld) [#/Vol] 0.8 10*3/uL 1.00-4.8 [facility] Lymphocytes/100 WBC Auto (Bl d)Ordered By: Yusra Santoyo on 02-22-2022 Lymphocytes/100 WBC (Bld) 12.3 % . [facility] MCH Auto (RBC) [Entitic mass ]Ordered By: Yusra Santoyo on 02-22-2022 MCH (RBC) [Entitic mass] 29.6 pg 24.7-34.3 [facility] MCHC Auto (RBC) [Mass/Vol]Or dered By: Yusra Santoyo on 02-22-2022 MCHC (RBC) [Mass/Vol] 31.5 g/dL 32.0-35.0 [facility] MCV Auto (RBC) [Entitic vol] Ordered By: Yusra Santoyo on 02-22-2022 MCV (RBC) [Entitic vol] 94.0 fL 80-100 [facility] Monocyte distribution width [Entitic volume] in Blood by AutomatedOrdered By: Yusra Santoyo on 02-22-2022 Monocyte distribution width Auto (Bld) [Entitic vol] 18.44 % 0.00-20.00 [facility] Monocytes Auto (Bld) [#/Vol] Ordered By: Yusra Santoyo on 02-22-2022 Monocytes (Bld) [#/Vol] 0.8 10*3/uL 0.0-0.8 [facility] Monocytes/100 WBC Auto (Bld) Ordered By: Yusar Santoyo on 02-22-2022 Monocytes/100 WBC (Bld) 11.5 % . [facility] Neutrophils Auto (Bld) [#/Vo l]Ordered By: Yusra Santoyo on 02-22-2022 Neutrophils (Bld) [#/Vol] 4.9 10*3/uL 1.8-7.7 [facility] Neutrophils/100 WBC Auto (Bl d)Ordered By: Yusra Santoyo on 02-22-2022 Neutrophils/100 WBC (Bld) 71.8 % . [facility] Nitrite Test strip Ql (U)Ord ered By: Yusra Santoyo on 02-22-2022 Nitrite Ql (U) Negative Negative [facility] No Panel InformationOrdered By: Yusra Santoyo on 02-22-2022 Estimated GFR () 10 mL/Min [facility] Comment on above: GFR estimated refere nce range: According to KDOQI guidelines, <60 ml/min/1.73m2 is sufficient to diagnose a patient with chronic kidney disease. Pharmacy Creatinine Clearance (Chem 9.34 [facility] Nucleated erythrocytes [Pres ence] in Blood by Automated countOrdered By: Yusra Santoyo on 02-22-2022 Nucleated RBC Auto Ql (Bld) 0.1 /100{WBC} 0-0.5 [facility] Platelet mean volume Auto (B ld) [Entitic vol]Ordered By: Yusra Santoyo on 02-22-2022 Platelet mean volume (Bld) [Entitic vol] 7.6 fL 6.3-10.7 [facility] Platelet poor plasma interna tional normalized ratio (INR) by coagulation assay (relatOrdered By: Yusra Santoyo on 02-22-2022 INR Coag (PPP) [Relative time] 1.4 {INR} [facility] Comment on above: INR Therapeutic Rang e A) Pre- and Peroperative OAT started two weeks before surgery. NOT HIP SURGERY: 1.5 - 2.5 HIP SURGERY: 2 - 3B) Primary and secondary prevention of venous THROMBOSIS: 2 - 3C) Active venous thrombosis, pulmonary embolismand prevention of recurrent venous thrombosis: 2 - 3D) Prevention of arterial thromboembolismincluding patients with mechanical heart valves: 3 - 4.5 Platelets Auto (Bld) [#/Vol] Ordered By: Yusra Santoyo on 02-22-2022 Platelets (Bld) [#/Vol] 240 10*3/uL 150-450 [facility] Protein Auto test strip (U) [Mass/Vol]Ordered By: Yusra Santoyo on 02-22-2022 Protein (U) [Mass/Vol] 100 mg/dL Negative [facility] RBC Auto (Bld) [#/Vol]Ordere d By: Yusra Santoyo on 02-22-2022 RBC (Bld) [#/Vol] 2.77 10*6/uL 3.60-5.00 [facility] Serum or plasma anion gap de terminationOrdered By: Yusra Santoyo on 02-22-2022 Anion gap [Moles/Vol] 18.6 mmol/L 6.0-15.0 [facility] Serum or plasma calcium eugenie urement (mass/volume)Ordered By: Yusra Santoyo on 02-22-2022 Calcium [Mass/Vol] 9.4 mg/dL 8.2-10.2 [facility] Serum or plasma chloride marciano surement (moles/volume)Ordered By: Yusra Santoyo on 02-22-2022 Chloride [Moles/Vol] 100 mmol/L 95-114 [facility] Serum or plasma creatine kin ase MB (CKMB)/total creatine kinase (CK) ratio by calculaOrdered By: Yusra Santoyo on 02-22-2022 CK.MB Calc [Catalytic fraction] 8.3 % 0.00-2.50 [facility] Serum or plasma creatine kin ase MB measurement (mass/volume)Ordered By: Yusra Santoyo on 02-22-2022 CK.MB [Mass/Vol] 4.5 ng/mL 0.6-6.3 [facility] Serum or plasma glucose eugenie urement (mass/volume)Ordered By: Yusra Santoyo on 02-22-2022 Glucose [Mass/Vol] 142 mg/dL 70-100 [facility] Comment on above: ADA recommended refe rence rangeRandom Glucose Reference Range is dependent on time and content of last meal. Glucose of more than 200 mg/dL in a nonstressed, ambulatory subject supports the diagnosis of Diabetes Mellitus. Serum or plasma potassium me asurement (moles/volume)Ordered By: Yusra Santoyo on 02-22-2022 Potassium [Moles/Vol] 5.0 mmol/L 3.5-5.1 [facility] Serum or plasma sodium measu rement (moles/volume)Ordered By: Yusra Santoyo on 02-22-2022 Sodium [Moles/Vol] 132 mmol/L 136-146 [facility] Serum or plasma total carbon dioxide measurement (moles/volume)Ordered By: Yusra Santoyo on 02-22-2022 CO2 [Moles/Vol] 18.4 mmol/L 22.0-30.0 [facility] Serum or plasma urea nitroge n measurement (mass/volume)Ordered By: Yusra Santoyo on 02-22-2022 Urea nitrogen [Mass/Vol] 126 mg/dL 11-02 [facility] Specific gravity Auto test s trip (U) [Rel density]Ordered By: Yusra Santoyo on 02-22-2022 Specific gravity (U) [Rel density] 1.015 1.001-1.030 [facility] Squamous epithelial cells de tection in urine sediment by light microscopyOrdered By: Yusra Santoyo on 02-22-2022 Epithelial cells.squamous LM Ql (Urine sed) 3-4 [HPF] 0-2 [facility] Troponin I.cardiac [Mass/vol ume] in Serum or Plasma by High sensitivity methodOrdered By: Malika Arreaga on 02-22-2022 Troponin I.cardiac High sensitivity method [Mass/Vol] 85 pg/mL 015 [facility] Comment on above: Results calledat 231 4 on 02/22/22 Troponin I.cardiac [Mass/vol ume] in Serum or Plasma by High sensitivity methodOrdered By: Yusra Santoyo on 02-22-2022 Troponin I.cardiac High sensitivity method [Mass/Vol] 82 pg/mL 015 [facility] Comment on above: Results calledat 203 2 on 02/22/22 Urine bacteria detection by automated methodOrdered By: Yusra Santoyo on 02-22-2022 Bacteria Auto Ql (U) None seen None Seen [facility] Urine clarity by refractomet ry automatedOrdered By: Yusra Santoyo on 02-22-2022 Clarity Refractometry automated (U) Clear Clear [facility] Urine culture routineOrdered By: Yusra Santoyo on 02-22-2022 Bacteria identified Cx Nom (U) 2 Days [facility] Bacteria identified Cx Nom (U) 2 Days [facility] Urine glucose measurement by automated test strip (mass/volume)Ordered By: Yusra Santoyo on 02-22-2022 Glucose Auto test strip (U) [Mass/Vol] Normal mg/dL Normal [facility] Urine hemoglobin detection b y automated test stripOrdered By: Yusra Santoyo on 02-22-2022 Hemoglobin Auto test strip Ql (U) Negative Negative [facility] Urine leukocyte esterase det ection by automated test stripOrdered By: Yusra Santoyo on 02-22-2022 Leukocyte esterase Auto test strip Ql (U) 2+ Negative [facility] Urobilinogen Auto test strip (U) [Mass/Vol]Ordered By: Yusra Santoyo on 02-22-2022 Urobilinogen (U) [Mass/Vol] Normal mg/dL Normal [facility] WBC Auto (Bld) [#/Vol]Ordere d By: Yusra Santoyo on 02-22-2022 WBC (Bld) [#/Vol] 6.8 10*3/uL 3.8-11.6 [facility] Yeast detection in urine sed iment by light microscopyOrdered By: Yusra Santoyo on 02-22-2022 Yeast LM Ql (Urine sed) None seen [HPF] None Se en [facility] pH Auto test strip (U)Ordere d By: Yusra Santoyo on 02-22-2022 pH (U) 5.0 [pH] 5.0-9.0 [facility] PHOSPHOLIPIDSon 02-14-2022 Phospholipids, Serum 159 mg/dL Normal 151-[address] [facility] Comment on above: Performed By: #### P HOSLIP ####[facility] [address] [place] [id number] Marlin Carlos XR CHEST COMP MIN 4Von 02-14 XR CHEST COMP MIN 4V Normal [facility] CT biopsyOrdered By: Geronimo shoemaker on 01-30-2022 Transferrin [Mass/Vol] 158 mg/dL 180-380 [facility] Ferritin [Mass/volume] in Se rum or PlasmaOrdered By: Geronimo Fofana on 01-30-2022 Ferritin [Mass/Vol] 1272.3 ng/mL 11-306.8 [facility] Folate [Mass/volume] in Seru m or PlasmaOrdered By: Geronimo Fofana on 01-30-2022 Folate [Mass/Vol] ng/mL >5.9 [facility] Comment on above: Folate reference ran ge: >5.9 ng/mlThe WHO technical consultation on folate and vitamin [id number] has determined that folate concentrations lessthan 4 ng/ml are considered deficient. Iron [Mass/volume] in Serum or PlasmaOrdered By: Geronimo Fofana on 01-30-2022 Iron [Mass/Vol] 43 ug/dL 40-150 [facility] Iron binding capacity [Mass/ volume] in Serum or PlasmaOrdered By: Geronimo Fofana on 01-30-2022 Iron binding capacity [Mass/Vol] 221 ug/dL 255-450 [facility] Iron saturation [Mass Fracti on] in Serum or PlasmaOrdered By: Geronimo Fofana on 01-30-2022 Iron saturation [Mass fraction] 19.0 % 20-50 [facility] Laboratory - Chemistry and C hemistry - challengeOrdered By: Geronimo Fofana on 01-30-2022 Cobalamin (Vitamin B12) [Mass/Vol] 630 pg/mL 180-914 [facility] PTH INTACTon 01-15-2022 PTH, Intact 87 pg/mL Critically high 15-[address] [facility] Comment on above: Performed By: #### P THINT ####[facility] [address] [place] [address]Dr. Marlin Gonzalez CBC AUTO DIFFon 01-14-2022 BASO # 0.0 103/ul Normal 0.0-0.[address] [facility] Comment on above: Performed By: #### C BC ####[facility] [address] [place] [address]DrLucia Gonzalez Basophils/100 WBC (Bld) 0.4 % Normal 0.2-2.0 [facility] Comment on above: Performed By: #### C BC ####[facility] Rex[address]qezfs[address] [place] [address]Dr. Marlin Gonzalez EO # 0.5 103/ul Normal 0.0-0.7 [facility] Comment on above: Performed By: #### C BC ####[facility] Wqnes[address]zzj[address] [place] [address]Dr. Marlin Gonzalez Eosinophils/100 WBC (Bld) 5.3 % Normal 0.9-7.0 [facility] Comment on above: Performed By: #### C BC ####[facility] Dvelwzsgex22[address] [place] [address]Dr. Marlin Gonzalez Erythrocyte distribution width (RBC) [Ratio] 15.7 % Critically high 11.0-15.0 [facility] Comment on above: Performed By: #### C BC ####[facility] Fygiatphxd[address] [place] [address]Dr. Marlin Gonzalez Hematocrit (Bld) [Volume fraction] 25.3 % Critically low 36.0-48.0 [facility] Comment on above: Performed By: #### C BC ####[facility] Ycrseqotzm90[address] [place] [address]Dr. Marlin Gonzalez Hemoglobin (Bld) [Mass/Vol] 8.0 g/dL Critically low 12.0-16.0 [facility] Comment on above: Performed By: #### C BC ####[facility] Efymefuhbz[address] [place] [address]Dr. Marlin Gonzalez IG # 0.05 10e3/ul Critically high 0.00-0.03 [facility] Comment on above: Performed By: #### C BC ####[facility] Xmgkfuqipd13[address] [place] [address]Dr. Marlin Gonzalez IG % 0.6 % Critically high 0.0-0.5 [facility] Comment on above: Performed By: #### C BC ####[facility] Bniwtmemss[address] [place] [address]Dr. Marlin Gonzalez LYMPH # 1.0 103/ul Critically low 1.2-3.8 [facility] Comment on above: Performed By: #### C BC ####[facility] Tcijfkugbw6[address] [place] [address]Dr. Marlin Carlos Lymphocytes/100 WBC (Bld) 10.7 % Critically low 20.5-60.[address] [facility] Comment on above: Performed By: #### C BC ####[facility] Inwsujqpkk[address] [place] [address]Dr. Katherinearmando Gonzalez MANUAL DIFF REQ NO Normal [facility] Comment on above: Performed By: #### C BC ####[facility] Whvuubvewv[address] [place] [address]Dr. Katherinearmando Gonzalez MCH (RBC) [Entitic mass] 30.3 pg Normal 26.7-34.[address] [facility] Comment on above: Performed By: #### C BC ####[facility] Fruemtklbk[address] [place], [place] [address]Dr. Marlin Carlos MCHC (RBC) [Mass/Vol] 31.6 g/dL Normal 29.9-35.[address] [facility] Comment on above: Performed By: #### C BC ####[facility] Bmnaaw[address]po[address] [place], [place] [address]Dr. Katherinearmando Gonzalez MCV (RBC) [Entitic vol] 95.8 fL Normal 81.0-99.0 [facility] Comment on above: Performed By: #### C BC ####[facility] Egozysouam[address] [place], [place] [address]Dr. Marlin Gonzalez MONO # 0.8 103/ul Normal 0.3-0.[address] [facility] Comment on above: Performed By: #### C BC ####[facility] Cyfydlndnf[address] [place], [place] [address]Dr. Marlin Gonzalez Monocytes/100 WBC (Bld) 8.5 % Normal 1.7-12.0 [facility] Comment on above: Performed By: #### C BC ####[facility] Yzihjaqfbq[address] [place], [place] [address]Dr. Marlin Gonzalez NEUT # 6.6 103/ul Critically high 1.4-6.[address] [facility] Comment on above: Performed By: #### C BC ####[facility] [address]ix[address] [place] [address]Dr. Marlin Gonzalez Neutrophils/100 WBC (Bld) 74.5 % Normal 43.0-75.0 [facility] Comment on above: Performed By: #### C BC ####[facility] F[address]wnmykpl[address] [place] [address]Dr. Marlin Gonzalez Platelet mean volume (Bld) [Entitic vol] 9.1 fL Critically low 9.5-13.5 [facility] Comment on above: Performed By: #### C BC ####[facility] Egqmbieugl[address] [place], [place] [address]Dr. Marlin Gonzalez PLT 216 103/ul Normal 150-450 [facility] Comment on above: Performed By: #### C BC ####[facility] Gxyehzrfpv69[address] [place], [place] [address]Dr. Marlin Gonzalez RBC 2.64 106/ul Critically low 4.20-5.40 [facility] Comment on above: Performed By: #### C BC ####[facility] Dsprsxlatc06[address] [place], [place] [address]Dr. Marlin Gonzalez WBC 8.9 103/ul Normal 4.0-11.0 [facility] Comment on above: Performed By: #### C BC ####[facility] Iebfbyrzrv[address] [place], [place] [address]Dr. Marlin Gonzalez FERRITINon 01-14-2022 Ferritin [Mass/Vol] 2230.0 ng/mL Critically high 8.0-252.0 [facility] Comment on above: Performed By: #### F ERR, FETIBC, VITAD ####[facility] Fypmdnkdso[address] [place] [address]Dr. Marlin Gonzalez IRON AND TIBCon 01-14-2022 % SATURATION 26.9 % Normal [facility] Comment on above: Performed By: #### F ERR, FETIBC, VITAD ####[facility] Huatjnkujs[address] [place], [place] [address]Dr. Marlin Gonzalez Iron [Mass/Vol] 56.0 ug/dL Normal 50.0-170.0 [facility] Comment on above: Performed By: #### F ERR, FETIBC, VITAD ####[facility] Yrefmdhgnz46[address] [place] [address]Dr. Marlin Gonzalez TIBC DIRECT 208.0 ug/dL Critically low 250.0-450.[address] [facility] Comment on above: Performed By: #### F ERR, FETIBC, VITAD ####[facility] Rkrzwlwyjn35[address] [place] [address]Dr. Marlin Gonzalez PROF 14(COMP METB)on 022 Albumin [Mass/Vol] 2.8 g/dL Critically low 3.4-5.0 [facility] Comment on above: Performed By: #### C MP ####[facility] [address]mhdcpwwpz[address] [place], [place] [address]Dr. Marlin Gonzalez Albumin/Globulin [Mass ratio] 0.7 {ratio} Normal [facility] Comment on above: Performed By: #### C MP ####[facility] Viidsamozq[address] [place], [place] [address]Dr. Marlin Gonzalez ALP [Catalytic activity/Vol] 171 U/L Critically high 46-[address] [facility] Comment on above: Performed By: #### C MP ####[facility] Ohbpdcjbvp[address] [place], [place] [address]Dr. Marlin Gonzalez ALT [Catalytic activity/Vol] 33 U/L Normal 14-[address] [facility] Comment on above: Performed By: #### C MP ####[facility] Powhwcnmms[address] [place], [place] [address]Dr. Marlin Gonzalez Anion gap [Moles/Vol] 12.8 mmol/L Normal [facility] Comment on above: Performed By: #### C MP ####[facility] Pninqytiki[address] [place], [place] [address]Dr. Marlin Gonzalez AST [Catalytic activity/Vol] 15 U/L Normal 15-[address] [facility] Comment on above: Performed By: #### C MP ####[facility] Stutxiitwr[address] [place], [place] [address]Dr. Marlin Gonzalez Bilirubin [Mass/Vol] 0.3 mg/dL Normal 0.2-1.[address] [facility] Comment on above: Performed By: #### C MP ####[facility] Zcrwabvlqm[address] [place], [place] [address]Dr. Marlin Carlos Calcium [Mass/Vol] 9.2 mg/dL Normal 8.5-10.[address] [facility] Comment on above: Performed By: #### C MP ####[facility] Xuaucwyapi7[address] [place], [place] [address]Dr. Marlin Carlos Chloride [Moles/Vol] 98 mmol/L Normal 98-[address] [facility] Comment on above: Performed By: #### C MP ####[facility] Dldxwgmtxv14[address] [place], [place] [address]Dr. Marlin Carlos CO2 [Moles/Vol] 27.4 mmol/L Normal 21.0-32.[address] [facility] Comment on above: Performed By: #### C MP ####[facility] Renhroeacj[address] [place], [place] [address]Dr. Marlin Carlos Creatinine [Mass/Vol] 2.76 mg/dL Critically high 0.55-1.[address] [facility] Comment on above: Performed By: #### C MP ####[facility] Tcitaykejj7614[address] [place], [place] [address]Dr. Katherinearmando Carlos EGFR-AF ANDORRAN 20 mL/min/1.73m2 Critically low >=[address] [facility] Comment on above: Performed By: #### C MP ####[facility] Whdbkhglaz85[address] [place], [place] [address]Dr. Katherinearmando Carlos EGFR-NON AF ANDORRAN 17 mL/min/1.73m2 Critically low >=[address] [facility] Comment on above: Performed By: #### C MP ####[facility] Qtbtblnzrb523[address] [place], [place] [address]Dr. Marlin Gonzalez Globulin (S) [Mass/Vol] 4.2 g/dL Normal T [facility] Comment on above: Performed By: #### C MP ####[facility] Mgntkfsyhz30[address] [place], [place] [address]Dr. Marlin Gonzalez Glucose [Mass/Vol] 217 mg/dL Critically high 74-106 T [facility] Comment on above: Performed By: #### C MP ####[facility] Vcgupujymq4[address] [place], [place] [address]Dr. Marlin Gonzalez Potassium [Moles/Vol] 4.2 mmol/L Normal 3.5-5.[address] [facility] Comment on above: Performed By: #### C MP ####[facility] Fqiywedihk87[address] [place], [place] [address]Dr. Marlin Gonzalez Protein [Mass/Vol] 7.0 g/dL Normal 6.4-8.[address] [facility] Comment on above: Performed By: #### C MP ####[facility] Brllnppiad645[address] [place], [place] [address]Dr. Marlin Gonzalez Sodium [Moles/Vol] 134 mmol/L Critically low 136-145 [facility] Comment on above: Performed By: #### C MP ####[facility] Dccbtuokva[address] [place], [place] [address]Dr. Marlin Gonzalez Urea nitrogen [Mass/Vol] 95.0 mg/dL Critically high 7.0-18.[address] [facility] Comment on above: Performed By: #### C MP ####[facility] Uqgdeaaknq[address] [place], [place] [address]Dr. Marlin Gonzalez Urea nitrogen/Creatinine [Mass ratio] 34.4 mg/mg Normal [facility] Comment on above: Performed By: #### C MP ####[facility] Zudhkahftf[address] [place], [place] [address]Dr. Marlin Gonzalez UA RANDOMon 01-14-2022 Bilirubin Ql (U) Negative Normal NEGATIVE [facility] Comment on above: Performed By: #### U A ####[facility] Taomnkkqfq09[address] [place], [place] [address]Dr. Marlin Gonzalez Clarity (U) CLEAR Normal CLEAR [facility] Comment on above: Performed By: #### U A ####[facility] Qgrgmcqhbj050[address] [place], [place] [address]Dr. Marlin Gonzalez Color (U) LT. YELLOW Normal YELLOW [facility] Comment on above: Performed By: #### U A ####[facility] [address]yom[address] [place] [address]Dr. Marlin Gonzalez Glucose Ql (U) 100 mg/dl Abnormal NEGATIVE [facility] Comment on above: Performed By: #### U A ####[facility] Adtpnpphur94[address] [place], [place] [address]Dr. Marlin Gonzalez Hemoglobin Ql (U) Negative Normal NEGATIVE [facility] Comment on above: Performed By: #### U A ####[facility] Dznloaqgmc812[address] [place], [place] [address]Dr. Marlin Gonzalez Ketones Ql (U) Negative Normal NEGATIVE [facility] Comment on above: Performed By: #### U A ####[facility] Szysfkxkrr[address] [place], [place] [address]Dr. Marlin Gonzalez LEUKOCYTES Negative Normal NEGATIVE [facility] Comment on above: Performed By: #### U A ####[facility] Gxzoreiddf97[address] [place], [place] [address]Dr. Marlin Gonzalez Nitrite Ql (U) Negative Normal NEGATIVE [facility] Comment on above: Performed By: #### U A ####[facility] Kmdrqeyqqj645[address] [place], [place] [address]Dr. Marlin Gonzalez pH (U) 5.5 [pH] Normal 5-[address] [facility] Comment on above: Performed By: #### U A ####[facility] Khlbbzaidn[address] [place], [place] [address]Dr. Marlin Gonzalez SPEC GRAVITY 1.020 Normal 1.005-<=1.[address] [place] [address] Comment on above: Performed By: #### U A ####[facility] Izdnvdcapf1534[address] [place], [place] [address]Dr. Marlin Gonzalez UA PROTEIN 100 mg/dl Abnormal NEGATIVE/ TRACE [facility] Comment on above: Performed By: #### U A ####[facility] Xnbbfvmfqx519[address] [place], [place] [address]Dr. Marlin Gonzalez Urobilinogen Qn (U) 0.2 {Ryan'U}/dL Normal 0.2 - 1. [address] [facility] Comment on above: Performed By: #### U A ####[facility] Gjdttxvfwz[address] [place] [address]Dr. Marlin Gonzalez URIC ACID SERUMon 01-14-2022 Urate [Mass/Vol] 8.4 mg/dL Critically high 2.6-6.[address] [facility] Comment on above: Performed By: #### U SOO ####[facility] Dbuchkcghr[address] [place], [place] [address]Dr. Marlin Gonzalez URINE T PROTEIN CREAT RATIOo n 01-14-2022 Protein (U) [Mass/Vol] 165.0 mg/dL Critically high <=12.0 [facility] Comment on above: Performed By: #### U RTPCR ####[facility] Sdqazumpen25[address] [place], [place] [address]Dr. Marlin Gonzalez UR PROT CREAT RAT 4.[address] [facility] Comment on above: Performed By: #### U RTPCR ####[facility] Wkskrqkztd068[address] [place], [place] [address]Dr. Marlin Gonzalez URINE CREAT 39.50 mg/dL Normal 20.00-300.[address] [facility] Comment on above: Performed By: #### U RTPCR ####[facility] Fzempwinfu101[address] [place], [place] [address]Dr. Marlin Gonzalez VITAMIN D 25 OHon 01-14-2022 VIT D 25-OH 36.3 ng/mL Normal [facility] Comment on above: Performed By: #### F ERR, FETIBC, VITAD ####[facility] Ugkfwjchof[address] [place], [place] [address]Dr. Marlin Gonzalez VIT D RANGES SEE BELOW Normal [facility] Comment on above: Result Comment: <20 ng/mL Vit D deficient 20 - <30 ng/mL Vit D insufficient 30 - 100 ng/mL Vit D sufficient >100 ng/mL Potential Toxicity Performed By: #### F ERR, FETIBC, VITAD ####[facility] Y[address]jkfaqstc[address] [place], [place] [address]Dr. Marlin Gonzaelz XR CHEST 2 Von 01-14-2022 XR CHEST 2 V Normal [facility] ACID FAST SMEAR AND CXon Acid Fast Culture Negative Normal [facility] Comment on above: Result Comment: No a immanuel fast bacilli isolated after 6 weeks. Performed By: #### A FB ####[facility] Vezhffairv[address] [place], [place] [address]Dr. Marlin Gonzalez Acid Fast Smear Negative Normal [facility] Comment on above: Performed By: #### A FB ####[facility] Rrgukzjxjn466[address] [place], [place] [address]Dr. Marlin Gonzalez AFB Specimen Processing Direct Inoculation Normal [facility] Comment on above: Performed By: #### A FB ####[facility] Ypsmzbxsfg17[address] [place], [place] [address]Dr. Marlin Gonzalez FUNGAL CULTUREon 12-07-2021 Fungus (Mycology) Culture Final report Normal [facility] Comment on above: Performed By: #### C XFUN ####[facility] Vbdpvpzlhn[address] [place], [place] [address]Dr. Marlin Gonzalez Fungus Stain Final report Normal [facility] Comment on above: Performed By: #### C XFUN ####[facility] Jqyfyvjncp[address] [place], [place] [address]Dr. Marlin Gonzalez Result 1 Comment Normal [facility] Comment on above: Result Comment: WILMA/ Calcofluor preparation: no fungus observed. Performed By: #### C XFUN ####[facility] Mtxqzvtmxu[address] [place], [place] [address]Dr. Marlin Gonzalez Result Comment: No y east or mold isolated after 4 weeks. PTH INTACTon 11-24-2021 PTH, Intact 66 pg/mL Critically high 15-65 [facility] Comment on above: Performed By: #### P THINT ####[facility] Ytgdosxzfb384[address] [place], [place] [address]Dr. Marlin Gonzalez FERRITINon 11-22-2021 Ferritin [Mass/Vol] 3067.0 ng/mL Critically high 8.0-252.[address] [facility] Comment on above: Performed By: #### F ERR, B12FOL, FETIBC, VITAD ####[facility] Hjlznbqgwn[address] [place], [place] [address]Dr. Marlin Gonzalez HEMOGLOBIN AND HEMATOCRITon 11-22-2021 Hematocrit (Bld) [Volume fraction] 27.7 % Critically low 36.0-48.[address] [facility] Comment on above: Performed By: #### H GBHCT ####[facility] Q[address]citmxeof[address] [place] [address]Dr. Marlin Gonzalez Hemoglobin (Bld) [Mass/Vol] 8.9 g/dL Critically low 12.0-16.0 [facility] Comment on above: Performed By: #### H GBHCT ####[facility] Mehoocwegj[address] [place] [address]Dr. Marlin Gonzalez IRON AND TIBCon 11-22-2021 % SATURATION 15.2 % Normal [facility] Comment on above: Performed By: #### F ERR, B12FOL, FETIBC, VITAD ####[facility] Ztymgutury[address] [place], [place] [address]Dr. Marlin Gonzalez Iron [Mass/Vol] 25.0 ug/dL Critically low 50.0-170.[address] [facility] Comment on above: Performed By: #### F ERR, B12FOL, FETIBC, VITAD ####[facility] Xgmexauvqh[address] [place], [place] [address]Dr. armando Gonzalez TIBC DIRECT 165.0 ug/dL Critically low 250.0-450.[address] [facility] Comment on above: Performed By: #### F ERR, B12FOL, FETIBC, VITAD ####[facility] Edarmxfjxn[address] [place], [place] [address]Dr. Marlin Gonzalez MAGNESIUMon 11-22-2021 Magnesium [Mass/Vol] 2.1 mg/dL Normal 1.8-2.[address] [facility] Comment on above: Performed By: #### C MP, MG, URIC ####[facility] Tewbnnlyef[address] [place], [place] [address]Dr. Katherinearmando Gonzalez PROF 14(COMP METB)on 022 Albumin [Mass/Vol] 2.6 g/dL Critically low 3.4-5.0 [facility] Comment on above: Performed By: #### C MP, MG, URIC ####[facility] Ltxrtedlhs[address] [place] [address]Dr. Marlin Gonzalez Albumin/Globulin [Mass ratio] 0.7 {ratio} Normal [facility] Comment on above: Performed By: #### C MP, MG, URIC ####[facility] Rtzsddwxky[address] [place] [address]Dr. Marlin Gonzalez ALP [Catalytic activity/Vol] 93 U/L Normal 46-[address] [facility] Comment on above: Performed By: #### C MP, MG, URIC ####[facility] Rdceckqmkf7504 [place] [address]Dr. Marlin Gonzalez ALT [Catalytic activity/Vol] 54 U/L Normal 14-[address] [facility] Comment on above: Performed By: #### C MP, MG, URIC ####[facility] Wgrchjyyfx47[address] [place] [address]Dr. Marlin Gonzalez Anion gap [Moles/Vol] 13.0 mmol/L Normal [facility] Comment on above: Performed By: #### C MP, MG, URIC ####[facility] Twxcxamygh[address]236 [place] [address]Dr. Marlin Gonzalez AST [Catalytic activity/Vol] 38 U/L Critically high 15-[address] [facility] Comment on above: Performed By: #### C MP, MG, URIC ####[facility] Evgcitkxil[address] [place] [address]Dr. Marlin Gonzalez Bilirubin [Mass/Vol] 0.4 mg/dL Normal 0.2-1.[address] [facility] Comment on above: Performed By: #### C MP, MG, URIC ####[facility] Lbedtxztbb[address] [place] [address]Dr. Marlin Gonzalez Calcium [Mass/Vol] 9.4 mg/dL Normal 8.5-10.[address] [facility] Comment on above: Performed By: #### C MP, MG, URIC ####[facility] Ngrtwymuhk27[address] [place] [address]Dr. Marlin Gonzalez Chloride [Moles/Vol] 95 mmol/L Critically low 98-[address] [facility] Comment on above: Performed By: #### C MP, MG, URIC ####[facility] Qqhcjikoci[address] [place] [address]Dr. Marlin Gonzalez CO2 [Moles/Vol] 27.3 mmol/L Normal 21.0-32.[address] [facility] Comment on above: Performed By: #### C MP, MG, URIC ####[facility] [address]jkzryugc[address] [place], [place] [address]Dr. Marlin Gonzalez Creatinine [Mass/Vol] 3.74 mg/dL Critically high 0.55-1.[address] [facility] Comment on above: Performed By: #### C MP, MG, URIC ####[facility] Rdyntwwthb[address] [place], [place] [address]Dr. Marlin Gonzalez EGFR-AF ANDORRAN 14 mL/min/1.73m2 Critically low >=[address] [facility] Comment on above: Performed By: #### C MP, MG, URIC ####[facility] [address] [place], [place] [address]Dr. Marlin Gonzalez EGFR-NON AF ANDORRAN 12 mL/min/1.73m2 Critically low >=[address] [facility] Comment on above: Performed By: #### C MP, MG, URIC ####[facility] [address]zyb[address] [place], [place] [address]Dr. Marlin Gonzalez Globulin (S) [Mass/Vol] 3.7 g/dL Normal [facility] Comment on above: Performed By: #### C MP, MG, URIC ####[facility] [address] [place] [address]Dr. Marlin Gonzalez Glucose [Mass/Vol] 160 mg/dL Critically high 74-106 [facility] Comment on above: Performed By: #### C MP, MG, URIC ####[facility] Htowqix[address] [place], [place] [address]Dr. Marlin Gonzalez Potassium [Moles/Vol] 4.3 mmol/L Normal 3.5-5.[address] [facility] Comment on above: Performed By: #### C MP, MG, URIC ####[facility] [address] [place] [address]Dr. Marlin Gonzalez Protein [Mass/Vol] 6.3 g/dL Critically low 6.4-8.2 [facility] Comment on above: Performed By: #### C MP, MG, URIC ####[facility] [address] [place] [address]Dr. Marlin Gonzalez Sodium [Moles/Vol] 131 mmol/L Critically low 136-145 [facility] Comment on above: Performed By: #### C MP, MG, URIC ####[facility] [address]es[address]fr[address] [place] [address]Dr. Marlin Gonzalez Urea nitrogen [Mass/Vol] 80.0 mg/dL Critically high 7.0-18.[address] [facility] Comment on above: Performed By: #### C MP, MG, URIC ####[facility] [address]mdff[address] [place], [place] [address]Dr. Marlin Gonzalez Urea nitrogen/Creatinine [Mass ratio] 21.4 mg/mg Normal [facility] Comment on above: Performed By: #### C MP, MG, URIC ####[facility] [address]sksjgpo[address] [place], [place] [address]Dr. Marlin Gonzalez UA RANDOMon 11-22-2021 Bilirubin Ql (U) Negative Normal NEGATIVE [facility] Comment on above: Performed By: #### U A ####[facility] [address]slbi[address] [place], [place] [address]Dr. Marlin Gonzalez Clarity (U) CLEAR Normal CLEAR [facility] Comment on above: Performed By: #### U A ####[facility] Vscleiljvw[address] [place], [place] [address]Dr. Marlin Gonzalez Color (U) LT. YELLOW Normal YELLOW [facility] Comment on above: Performed By: #### U A ####[facility] [address]kv[address] [place], [place] [address]Dr. Marlin Gonzalez Glucose Ql (U) Negative Normal NEGATIVE [facility] Comment on above: Performed By: #### U A ####[facility] [address]lifylmzs[address] [place], [place] [address]Dr. Marlin Gonzalez Hemoglobin Ql (U) Negative Normal NEGATIVE [facility] Comment on above: Performed By: #### U A ####[facility] [address]rlucp[address] [place], [place] [address]Dr. Marlin Gonzalez Ketones Ql (U) Negative Normal NEGATIVE [facility] Comment on above: Performed By: #### U A ####[facility] Thsiblniry[address] [place], [place] [address]Dr. Marlin Gonzalez LEUKOCYTES Negative Normal NEGATIVE [facility] Comment on above: Performed By: #### U A ####[facility] [address]ip[address]lir[address] [place], [place] [address]Dr. Marlin Gonzalez Nitrite Ql (U) Negative Normal NEGATIVE [facility] Comment on above: Performed By: #### U A ####[facility] Ijcsr[address] [place], [place] [address]Dr. Marlin Gonzalez pH (U) 6.0 [pH] Normal 5-9 [facility] Comment on above: Performed By: #### U A ####[facility] [address] [place], [place] [address]Dr. Marlin Gonzalez SPEC GRAVITY 1.010 Normal 1.005-<=1.02 5 [facility] Comment on above: Performed By: #### U A ####[facility] [address]frqalyx[address] [place], [place] [address]Dr. Marlin Gonzalez UA PROTEIN 30 mg/dl Abnormal NEGATIVE/ TRACE [facility] Comment on above: Performed By: #### U A ####[facility] Yhloecabmy[address] [place], [place] [address]Dr. Marlin Gonzalez Urobilinogen Qn (U) 0.2 {Ryan'U}/dL Normal 0.2 - 1. 0 [facility] Comment on above: Performed By: #### U A ####[facility] Kklzhm[address]if[address] [place], [place] [address]Dr. Marlin Gonzalez URIC ACID SERUMon 11-22-2021 Urate [Mass/Vol] 9.9 mg/dL Critically high 2.6-6.[address] [facility] Comment on above: Performed By: #### C MP, MG, URIC ####[facility] [address] [place] [address]Dr. Marlin Gonzalez URINE T PROTEIN CREAT RATIOo n 11-22-2021 Protein (U) [Mass/Vol] 58.1 mg/dL Critically high <=12.[address] [facility] Comment on above: Performed By: #### U RTPCR ####[facility] Ausvxrcgmh[address] [place], [place] [address]Dr. Marlin Gonzalez UR PROT CREAT RAT 1.16 Normal [facility] Comment on above: Performed By: #### U RTPCR ####[facility] [address] [place], [place] [address]Dr. Marlin Gonzalez URINE CREAT 49.94 mg/dL Normal 20.00-300.[address] [facility] Comment on above: Performed By: #### U RTPCR ####[facility] [address]ace[address] [place], [place] [address]Dr. Marlin Gonzalez VIT B12 AND FOLATEon 022 Cobalamin (Vitamin B12) [Mass/Vol] 726.0 pg/mL Normal 193.0-986.[address] [facility] Comment on above: Performed By: #### F ERR, B12FOL, FETIBC, VITAD ####[facility] S[address]vbcf[address] [place], [place] [address]Dr. Marlin Gonzalez FOLATE 21.50 ng/mL Normal 8.60-58.[address] [facility] Comment on above: Performed By: #### F ERR, B12FOL, FETIBC, VITAD ####[facility] Iovyprk[address] [place], [place] [address]Dr. Marlin Gonzalez VITAMIN D 25 OHon 11-22-2021 VIT D 25-OH 32.1 ng/mL Normal [facility] Comment on above: Performed By: #### F ERR, B12FOL, FETIBC, VITAD ####[facility] Imnlvfbeen[address] [place], [place] [address]Dr. Marlin Gonzalez VIT D RANGES SEE BELOW Normal [facility] Comment on above: Result Comment: <20 ng/mL Vit D deficient 20 - <30 ng/mL Vit D insufficient 30 - 100 ng/mL Vit D sufficient >100 ng/mL Potential Toxicity Performed By: #### F ERR, B12FOL, FETIBC, VITAD ####[facility] [address] [place], [place] [address]Wb. Marlin Gonzalez Basophils Auto (Bld) [#/Vol] Ordered By: Carlton Mtz on 11-20-2021 Basophils (Bld) [#/Vol] 0.0 10*3/uL 0.0-0.2 [facility] Basophils/100 WBC Auto (Bld) Ordered By: Carlton Mtz on 11-20-2021 Basophils/100 WBC (Bld) 0.5 % . [facility] Blood hemoglobin measurement (mass/volume)Ordered By: Carlton Mtz on 11-20-2021 Hemoglobin (Bld) [Mass/Vol] 9.0 g/dL 11.8-15.4 [facility] Blood leukocytes automated c ount (number/volume)Ordered By: Carlton Mtz on 11-20-2021 WBC (Bld) [#/Vol] 8.2 10*3/uL 4.5-11.0 [facility] Creatinine and Glomerular fi ltration rate.predicted panel (S/P/Bld)Ordered By: Carlton Mtz on 11-20-2021 Creatinine [Mass/Vol] 3.04 mg/dL 0.44-1.03 [facility] Eosinophils Auto (Bld) [#/Vo l]Ordered By: Carlton Mtz on 11-20-2021 Eosinophils (Bld) [#/Vol] 0.1 10*3/uL 0.0-0.45 [facility] Eosinophils/100 WBC Auto (Bl d)Ordered By: Carlton Mtz on 11-20-2021 Eosinophils/100 WBC (Bld) 1.6 % . [facility] Erythrocyte distribution wid th Auto (RBC) [Ratio]Ordered By: Carlton Mtz on 11-20-2021 Erythrocyte distribution width (RBC) [Ratio] 15.2 % 11.9-15.3 [facility] Estimated glomerular filtrat ion rate (GFR) non- AmericanOrdered By: Carlton Mtz on 11-20-2021 GFR/1.73 sq M.predicted among non-blacks MDRD (S/P/Bld) [Vol rate/Area] 15 mL/Min [facility] Glucose Glucometer (BldC) [M ass/Vol]Ordered By: Annette Tenorio on 11-20-2021 Glucose [Mass/Vol] 249 mg/dL [facility] Comment on above: Random Glucose Refer ence Range is dependent on time and content of last meal. Glucose of more than 200 mg/dL in a nonstressed, ambulatory subject supports the diagnosis of Diabetes Mellitus. Hematocrit Auto (Bld) [Volum e fraction]Ordered By: Carlton Mtz on 11-20-2021 Hematocrit (Bld) [Volume fraction] 26.7 % 34.0-46.4 [facility] Laboratory - Hematology and Cell countsOrdered By: Carlton Mtz on 11-20-2021 Nucleated RBC/100 WBC (Bld) [Ratio] 0.0 % 0-0.5 [facility] Lymphocytes Auto (Bld) [#/Vo l]Ordered By: Carlton Mtz on 11-20-2021 Lymphocytes (Bld) [#/Vol] 1.1 10*3/uL 1.00-4.8 [facility] Lymphocytes/100 WBC Auto (Bl d)Ordered By: Carlton Mtz on 11-20-2021 Lymphocytes/100 WBC (Bld) 12.9 % . [facility] MCH Auto (RBC) [Entitic mass ]Ordered By: Carlton Mtz on 11-20-2021 MCH (RBC) [Entitic mass] 30.3 pg 24.7-34.3 [facility] MCHC Auto (RBC) [Mass/Vol]Or dered By: Carlton Mtz on 11-20-2021 MCHC (RBC) [Mass/Vol] 33.6 g/dL 32.0-35.0 [facility] MCV Auto (RBC) [Entitic vol] Ordered By: Carlton Mtz on 11-20-2021 MCV (RBC) [Entitic vol] 90.2 fL 80-100 [facility] Monocytes Auto (Bld) [#/Vol] Ordered By: Carlton Mtz on 11-20-2021 Monocytes (Bld) [#/Vol] 1.2 10*3/uL 0.0-0.8 [facility] Monocytes/100 WBC Auto (Bld) Ordered By: Carlton Mtz on 11-20-2021 Monocytes/100 WBC (Bld) 14.1 % . [facility] Neutrophils Auto (Bld) [#/Vo l]Ordered By: Carlton Mtz on 11-20-2021 Neutrophils (Bld) [#/Vol] 5.8 10*3/uL 1.8-7.7 [facility] Neutrophils/100 WBC Auto (Bl d)Ordered By: Carlton Mtz on 11-20-2021 Neutrophils/100 WBC (Bld) 70.9 % . [facility] No Panel InformationOrdered By: Annette Tenorio on 11-20-2021 Bedside Glucose Comment Glu2: cleaned meter [facility] No Panel InformationOrdered By: Carlton Mtz on 11-20-2021 Estimated GFR () 18 mL/Min [facility] Comment on above: GFR estimated refere nce range: According to KDOQI guidelines, <60 ml/min/1.73m2 is sufficient to diagnose a patient with chronic kidney disease. Pharmacy Creatinine Clearance (Chem 15.77 [facility] Platelet mean volume Auto (B ld) [Entitic vol]Ordered By: Carlton Mtz on 11-20-2021 Platelet mean volume (Bld) [Entitic vol] 7.8 fL 6.3-10.7 [facility] Platelets Auto (Bld) [#/Vol] Ordered By: Carlton Mtz on 11-20-2021 Platelets (Bld) [#/Vol] 260 10*3/uL 150-450 [facility] RBC Auto (Bld) [#/Vol]Ordere d By: Carlton Mtz on 11-20-2021 RBC (Bld) [#/Vol] 2.96 10*6/uL 3.60-5.00 [facility] Serum or plasma anion gap de terminationOrdered By: Carlton Mtz on 11-20-2021 Anion gap [Moles/Vol] 13.6 mmol/L 6.0-15.0 [facility] Serum or plasma calcium eugenie urement (mass/volume)Ordered By: Carlton Mtz on 11-20-2021 Calcium [Mass/Vol] 8.8 mg/dL 8.2-10.2 [facility] Serum or plasma chloride marciano surement (moles/volume)Ordered By: Carlton Mtz on 11-20-2021 Chloride [Moles/Vol] 98 mmol/L 95-114 [facility] Serum or plasma glucose eugenie urement (mass/volume)Ordered By: Carlton Mtz on 11-20-2021 Glucose [Mass/Vol] 133 mg/dL 70-100 [facility] Comment on above: ADA recommended refe rence rangeRandom Glucose Reference Range is dependent on time and content of last meal. Glucose of more than 200 mg/dL in a nonstressed, ambulatory subject supports the diagnosis of Diabetes Mellitus. Serum or plasma potassium me asurement (moles/volume)Ordered By: Carlton Mtz on 11-20-2021 Potassium [Moles/Vol] 3.9 mmol/L 3.5-5.1 [facility] Serum or plasma sodium measu rement (moles/volume)Ordered By: Carlton Mtz on 11-20-2021 Sodium [Moles/Vol] 132 mmol/L 136-146 [facility] Serum or plasma total carbon dioxide measurement (moles/volume)Ordered By: Carlton Mtz on 11-20-2021 CO2 [Moles/Vol] 24.3 mmol/L 22.0-30.0 [facility] Serum or plasma urea nitroge n measurement (mass/volume)Ordered By: Carlton Mtz on 11-20-2021 Urea nitrogen [Mass/Vol] 69 mg/dL 9-23 [facility] Bacteria identified Anaer cx Nom (Unsp spec)Ordered By: Carlton Mtz on 11-19-2021 Anaerobic microbial culture No Anaerobes Isolated 3 Days [facility] Troponin I.cardiac [Mass/vol ume] in Serum or Plasma by High sensitivity methodOrdered By: Cralton Mtz on 11-18-2021 Troponin I.cardiac High sensitivity method [Mass/Vol] 170 pg/mL 0-15 [facility] Comment on above: Results calledat 064 5 on 11/18/21 ABO and Rh group post transf usion reaction Nom (Bld)Ordered By: Carlton Mtz on 11-17-2021 Microscopic observation Gram stain Nom (Unsp spec) [facility] CT biopsyOrdered By: Geronimo shoemaker on 11-17-2021 Transferrin [Mass/Vol] 134 mg/dL 180-380 [facility] Ferritin [Mass/volume] in Se rum or PlasmaOrdered By: Geronimo Fofana on 11-17-2021 Ferritin [Mass/Vol] 1362.5 ng/mL 11-306.8 [facility] Folate [Mass/volume] in Seru m or PlasmaOrdered By: Geronimo Fofana on 11-17-2021 Folate [Mass/Vol] 19.0 ng/mL >5.9 [facility] Comment on above: Folate reference ran ge: >5.9 ng/mlThe WHO technical consultation on folate and vitamin [id number] has determined that folate concentrations lessthan 4 ng/ml are considered deficient. Iron [Mass/volume] in Serum or PlasmaOrdered By: Geronimo Fofana on 11-17-2021 Iron [Mass/Vol] 39 ug/dL 40-150 [facility] Iron binding capacity [Mass/ volume] in Serum or PlasmaOrdered By: Geronimo Fofana on 11-17-2021 Iron binding capacity [Mass/Vol] 188 ug/dL 255-450 [facility] Iron saturation [Mass Fracti on] in Serum or PlasmaOrdered By: Geronimo Fofana on 11-17-2021 Iron saturation [Mass fraction] 20.0 % 20-50 [facility] Laboratory - Chemistry and C hemistry - challengeOrdered By: Geronimo Fofana on 11-17-2021 Cobalamin (Vitamin B12) [Mass/Vol] 529 pg/mL 180-914 [facility] Activated partial thrombopla stin time (aPTT) in platelet poor plasma by coagulation aOrdered By: Carlton Mtz on 11-16-2021 aPTT Coag (PPP) [Time] 32.8 s 25.1-36.5 [facility] Body fluid albumin measureme nt (mass/volume)Ordered By: Carlton Mtz on 11-16-2021 Albumin (Body fld) [Mass/Vol] 2.6 g/dL 3.2-5.5 [facility] Body fluid differential cell countOrdered By: Carlton Mtz on 11-16-2021 Differential panel (Body fld) 40 % [facility] Comment on above: The reference interv al and other method performance specifications have not been established for this body fluid. The test result must be integrated into the clinical context for interpretation. Body fluid protein measureme nt (mass/volume)Ordered By: Carlton Mtz on 11-16-2021 Protein (Body fld) [Mass/Vol] 2.9 g/dL [facility] CARDIAC JOSSIE 3-6on 2 CK [Catalytic activity/Vol] 62 U/L Normal 26-192 [facility] Comment on above: Performed By: #### C MREP ####[facility] [address] [place], [place] [address]ZvLucia Gonzalez CK.MB [Mass/Vol] 3.73 ng/mL Critically high <=3.60 [facility] Comment on above: Performed By: #### C MREP ####[facility] [address] [place], [place] [address]WlLucia Gonzalez HSTROP 379.6 pg/mL Critically high 4.0-51.3 [facility] Comment on above: Result Comment: CUT- OFF POINTS HAVE BEEN ESTABLISHED BASED ON THE FOURTH UNIVERSAL DEFINITIONS OF MYOCARDIALINFARCTION. THE UPPER REFERENCE LIMIT (URL) OF TROPONIN, DEFINED THE 99TH PERCENTILE OFcTnI DISTRIBUTION IN A REFERENCE POPULATION, HAS BEEN CONFIRMED THE DECISION THRESHOLDFOR SC DIAGNOSIS. Performed By: #### C MREP ####[facility] [address] [place] [id number]. Marlin Gonzalez CK [Catalytic activity/Vol] 61 U/L Normal 26-192 [facility] Comment on above: Performed By: #### C MREP ####[facility] [address] [place] [id number]. Marlin Gonzalez CK.MB [Mass/Vol] 4.80 ng/mL Critically high <=3.60 [facility] Comment on above: Performed By: #### C MREP ####[facility] [address] [place] [address]Dr. Marlin Gonzalez HSTROP 415.2 pg/mL Critically high 4.0-51.3 [facility] Comment on above: Result Comment: CUT- OFF POINTS HAVE BEEN ESTABLISHED BASED ON THE FOURTH UNIVERSAL DEFINITIONS OF MYOCARDIALINFARCTION. THE UPPER REFERENCE LIMIT (URL) OF TROPONIN, DEFINED THE 99TH PERCENTILE OFcTnI DISTRIBUTION IN A REFERENCE POPULATION, HAS BEEN CONFIRMED THE DECISION THRESHOLDFOR SC DIAGNOSIS. Performed By: #### C MREP ####[facility] [address] [place] [address]Dr. Marlin Gonzalez CARDIAC JOSSIE ADMITon 022 CK [Catalytic activity/Vol] 66 U/L Normal 26-192 [facility] Comment on above: Performed By: #### C SHARI, BMP ####[facility] [address] [place] [id number]. Marlin Gonzalez CK.MB [Mass/Vol] 4.87 ng/mL Critically high <=3.60 [facility] Comment on above: Performed By: #### C MADM, BMP ####[facility] [address]ws[address] [place] [phone]. Marlin Gonzalez HSTROP 393.2 pg/mL Critically high 4.0-51.3 [facility] Comment on above: Result Comment: CUT- OFF POINTS HAVE BEEN ESTABLISHED BASED ON THE FOURTH UNIVERSAL DEFINITIONS OF MYOCARDIALINFARCTION. THE UPPER REFERENCE LIMIT (URL) OF TROPONIN, DEFINED THE 99TH PERCENTILE OFcTnI DISTRIBUTION IN A REFERENCE POPULATION, HAS BEEN CONFIRMED THE DECISION THRESHOLDFOR SC DIAGNOSIS. Performed By: #### C SHARI, CHELSI ####[facility] [address] [place], [place] [address]Dr. Marlin Gonzalez GHASSAN 237 ng/mL Critically high 9-[address] [facility] Comment on above: Performed By: #### C SHARI, CHELSI ####[facility] Ge[address] [place], [place] [address]Dr. Marlin Gonzalez CBC AUTO DIFFon 11-16-2021 BASO # 0.0 103/ul Normal 0.0-0.[address] [facility] Comment on above: Performed By: #### C BC ####[facility] Jun[address]te[address] [place], [place] [address]Dr. Marlin Gonzalez Basophils/100 WBC (Bld) 0.3 % Normal 0.2-2.0 [facility] Comment on above: Performed By: #### C BC ####[facility] [address]etz[address]oz[address] [place], [place] [address]Dr. Marlin Gonzalez EO # 0.4 103/ul Normal 0.0-0.[address] [facility] Comment on above: Performed By: #### C BC ####[facility] [address] [place], [place] [address]Dr. Marlin Gonzalez Eosinophils/100 WBC (Bld) 6.1 % Normal 0.9-7.[address] [facility] Comment on above: Performed By: #### C BC ####[facility] [address] [place], [place] [address]Dr. Marlin Gonzalez Erythrocyte distribution width (RBC) [Ratio] 14.3 % Normal 11.0-15.[address] [facility] Comment on above: Performed By: #### C BC ####[facility] [address] [place], [place] [address]Dr. Marlin Gonzalez Hematocrit (Bld) [Volume fraction] 27.2 % Critically low 36.0-48.[address] [facility] Comment on above: Performed By: #### C BC ####[facility] [address] [place] [id number]. Marlin Gonzalez Hemoglobin (Bld) [Mass/Vol] 8.6 g/dL Critically low 12.0-16.[address] [facility] Comment on above: Performed By: #### C BC ####[facility] [address] [place] [id number]. Marlin Gonzalez IG # 0.03 10e3/ul Normal 0.00-0.[address] [facility] Comment on above: Performed By: #### C BC ####[facility] [address] [place] [address]Dr. Marlin Carlos IG % 0.5 % Normal 0.0-0.[address] [facility] Comment on above: Performed By: #### C BC ####[facility] [address] [place], [place] [address]DrLucia Gonzalez LYMPH # 0.9 103/ul Critically low 1.2-3.8 [facility] Comment on above: Performed By: #### C BC ####[facility] [address] [place] [address]Dr. Marlin Carlos Lymphocytes/100 WBC (Bld) 15.2 % Critically low 20.5-60.[address] [facility] Comment on above: Performed By: #### C BC ####[facility] [address] [place] [address]DrLucia Katherinearmando Gonzalez MANUAL DIFF REQ NO Normal [facility] Comment on above: Performed By: #### C BC ####[facility] [address] [place] [phone]. Marlin Carlos MCH (RBC) [Entitic mass] 30.1 pg Normal 26.7-34.0 [facility] Comment on above: Performed By: #### C BC ####[facility] [address]se[address] [place] [phone]. Marlin Carlos MCHC (RBC) [Mass/Vol] 31.6 g/dL Normal 29.9-35.2 [facility] Comment on above: Performed By: #### C BC ####[facility] [address] [place] [phone]. Marlin Gonzalez MCV (RBC) [Entitic vol] 95.1 fL Normal 81.0-99.0 [facility] Comment on above: Performed By: #### C BC ####[facility] [address]qfc[address]chr[address] [place] [phone]. Marlin Gonzalez MONO # 0.9 103/ul Critically high 0.3-0.[address] [facility] Comment on above: Performed By: #### C BC ####[facility] [address]du[address] [place] [phone]. Marlin Gonzalez Monocytes/100 WBC (Bld) 14.7 % Critically high 1.7-12. [address] [facility] Comment on above: Performed By: #### C BC ####[facility] [address] [place], [place] [address]Dr. Marlin Gonzalez NEUT # 3.7 103/ul Normal 1.4-6.[address] [facility] Comment on above: Performed By: #### C BC ####[facility] [address] [place], [place] [phone]. Marlin Gonzalez Neutrophils/100 WBC (Bld) 63.2 % Normal 43.0-75.[address] [facility] Comment on above: Performed By: #### C BC ####[facility] [address] [place], [place] [address]Dr. Marlin Gonzalez Platelet mean volume (Bld) [Entitic vol] 9.9 fL Normal 9.5-13.[address] [facility] Comment on above: Performed By: #### C BC ####[facility] [address] [place] [phone]. Marlin Gonzalez PLT 300 103/ul Normal 150-450 [facility] Comment on above: Performed By: #### C BC ####[facility] [address]ri[address] [place] [phone]. Marlin Carlos RBC 2.86 106/ul Critically low 4.20-5.[address] [facility] Comment on above: Performed By: #### C BC ####[facility] [address] [place], [place] [address]Mp. Marlin Gonzalez WBC 5.9 103/ul Normal 4.0-11.0 [facility] Comment on above: Performed By: #### C BC ####[facility] [address] [place], [place] [address]Ry. Marlin Gonzalez Cells Counted Total [#] in P leural fluidOrdered By: Carlton Mtz on 11-16-2021 Cells Counted Total (Pleur fld) [#] See comment [facility] Comment on above: Unable to accurately quantitiate cells due to clotting, clumping, debris etc. The reference interval and other method performance specifications have not been established for this body fluid. The test result must be integrated into the clinical context for interpretation. Color of Spun Body fluidOrde red By: Carlton Mtz on 11-16-2021 Color (Spun body fld) Yellow [facility] Comment on above: The reference interv al and other method performance specifications have not been established for this body fluid. The test result must be integrated into the clinical context for interpretation. Covid-19 PCR (CVDTB)on SARS-CoV-2 (COVID-19) RNA MADISON+probe Ql (Unsp spec) Not detected Normal NOT DETECTED [facility] Comment on above: Result Comment: When diagnostic testing is negative, the possibility of a false negative should be considered inthe context of a patient's recent exposures and the presence of clinical signs and symptomsconsistent with SARS-CoV-2.This test is not yet approved or cleared by the [place] FDA. When there are no FDA-approved or cleared tests available, and other criteria are met, FDA can make tests available under an emergency access mechanism called an Emergency Use Authorization (EUA). The EUA for this test is supported by the Registered Health Nurse of Health and Human Service's declaration that circumstances exist to justify the emergency use of in vitro diagnostics for the detection and/or diagnosis of the virus that causes COVID-19. This EUA will remain in effect for the duration of the COVID-19 declaration justifying emergency of IVDs, unless it is terminated or revoked by the FDA (after which the test may no longer be used). Performed By: #### C VDTBH ####[facility] [address] [place] [id number] Gonzalez Creatine kinase [Enzymatic a ctivity/volume] in Serum or PlasmaOrdered By: Carlton Mzt on 11-16-2021 CK [Catalytic activity/Vol] 286 U/L 22-269 [facility] D-DIMERon 11-16-2021 D-DIMER 2.02 mg/L FEU Critically high <=0.[address] [facility] Comment on above: Performed By: #### D DIM ####[facility] [address] [place] [address]DrLucia Gonzalez D-DIMER COMMENTS SEE BELOW Normal [facility] Comment on above: Result Comment: Incr eases in D-Dimer concentration observed with thromboembolic events can be variable due to localization, size, and age of the thrombus. Therefore, a thromboembolic event cannot be diagnosed with certainty on the basis of the reference range. D-Dimers may also be elevated for a variety of disorders including: advanced age, , coronary disease, cancer, liver disease, infection, inflammation, hematoma, DIC, trauma, post-surgery, diabetes, thrombolytic or anticoagulant therapy, stress, and generalized hospitalization. Performed By: #### D DIM ####[facility] [address] [place] [id number] Gonzalez Determination of appearance of body fluidOrdered By: Carlton Mtz on 11-16-2021 Appearance (Body fld) Cloudy [facility] Comment on above: The reference interv al and other method performance specifications have not been established for this body fluid. The test result must be integrated into the clinical context for interpretation. Direct bilirubin measurement Ordered By: Carlton Mtz on 11-16-2021 Bilirubin.direct [Mass/Vol] 0.1 mg/dL 0.0-0.4 [facility] Erythrocytes [#/volume] in P leural fluid by Automated countOrdered By: Carlton Mtz on 11-16-2021 RBC Auto (Pleur fld) [#/Vol] See comment [facility] Comment on above: Unable to accurately quantitiate cells due to clotting, clumping, debris etc. The reference interval and other method performance specifications have not been established for this body fluid. The test result must be integrated into the clinical context for interpretation. Evaluation of color of body fluidOrdered By: Carlton Mtz on 11-16-2021 Color (Body fld) Yellow [facility] Comment on above: The reference interv al and other method performance specifications have not been established for this body fluid. The test result must be integrated into the clinical context for interpretation. Globulin Calc (S) [Mass/Vol] Ordered By: Carlton Mtz on 11-16-2021 Globulin (S) [Mass/Vol] 3.1 g/dL F [facility] Glucose mean value [Mass/vol ume] in Blood Estimated from glycated hemoglobinOrdered By: Carlton Mtz on 11-16-2021 Average glucose Estimated from glycated hemoglobin (Bld) [Mass/Vol] 160 mg/dL [facility] Hemoglobin A1c percentageOrd ered By: Carlton Mtz on 11-16-2021 HbA1c (Bld) [Mass fraction] 7.2 % 4.3-5.6 [facility] Comment on above: Increased risk for d iabetes: 5.7 - 6.4diabetes: >6.4glycemic control for adults with diabetes: <7.0 Laboratory - Chemistry and C hemistry - challengeOrdered By: Carlton Mtz on 11-16-2021 Natriuretic peptide B (Bld) [Mass/Vol] 1064.0 pg/mL 5-100 [facility] Laboratory - CoagulationOrde red By: Carlton Mtz on 11-16-2021 PT Coag (PPP) [Time] 14.2 s 9.0-12.9 [facility] Lactate dehydrogenase measur ement (enzymatic activity/volume)Ordered By: Carlton Mtz on 11-16-2021 LDH (Unsp spec) [Catalytic activity/Vol] 80 [IU]/mL [facility] Comment on above: No reference range e stablished Manual body fluid eosinophil s/100 leukocytesOrdered By: Carlton Mtz on 11-16-2021 Eosinophils/100 WBC Manual cnt (Body fld) 0 /100{WBC} 0-3 [facility] Manual body fluid lymphocyte s/100 leukocytesOrdered By: Carlton Mtz on 11-16-2021 Lymphocytes/100 WBC Manual cnt (Body fld) 40 % [facility] Comment on above: The reference interv al and other method performance specifications have not been established for this body fluid. The test result must be integrated into the clinical context for interpretation. Neutrophils/100 WBC Manual c nt (Body fld)Ordered By: Carlton Mtz on 11-16-2021 Neutrophils/100 WBC (Body fld) 20 % [facility] Comment on above: The reference interv al and other method performance specifications have not been established for this body fluid. The test result must be integrated into the clinical context for interpretation. PROF CHEM 8 (BAS METB)on Anion gap [Moles/Vol] 14.8 mmol/L Normal [facility] Comment on above: Performed By: #### Tara MCCARTHY, BMP ####[facility] [address] [place] [address]Dr. Marlin Gonzalez Calcium [Mass/Vol] 9.3 mg/dL Normal 8.5-10.[address] [facility] Comment on above: Performed By: #### Tara MCCARTHY, BMP ####[facility] [address] [place] [address]Dr. Marlin Gonzalez Chloride [Moles/Vol] 98 mmol/L Normal 98-[address] [facility] Comment on above: Performed By: #### Tara MCCARTHY, BMP ####[facility] [address] [place] [address]Dr. Marlin Gonzalez CO2 [Moles/Vol] 24.8 mmol/L Normal 21.0-32.[address] [facility] Comment on above: Performed By: #### Tara MCCARTHY, BMP ####[facility] [address] [place] [address]Dr. Marlin Gonzalez Creatinine [Mass/Vol] 3.67 mg/dL Critically high 0.55-1.[address] [facility] Comment on above: Performed By: #### C SHARI, BMP ####[facility] [address] [place] [address]Dr. Marlin Gonzalez EGFR-AF ANDORRAN 15 mL/min/1.73m2 Critically low >=[address] [facility] Comment on above: Performed By: #### C GISELELM, BMP ####[facility] [address] [place] [address]Dr. Marlin Gonzalez EGFR-NON AF ANDORRAN 12 mL/min/1.73m2 Critically low >=[address] [facility] Comment on above: Performed By: #### C SHARI, BMP ####[facility] [address] [place] [address]Dr. Marlin Gonzalez Glucose [Mass/Vol] 178 mg/dL Critically high 74-106 T [facility] Comment on above: Performed By: #### C SHARI, BMP ####[facility] V[address]qs[address] [place], [place] [address]Dr. Marlin Gonzalez Potassium [Moles/Vol] 4.6 mmol/L Normal 3.5-5.[address] [facility] Comment on above: Performed By: #### C SHARI, BMP ####[facility] B[address] [place], [place] [address]Dr. Marlin Gonzalez Sodium [Moles/Vol] 133 mmol/L Critically low 136-145 [facility] Comment on above: Performed By: #### C SHARI, BMP ####[facility] [address] [place], [place] [address]Dr. Marlin Gonzalez Urea nitrogen [Mass/Vol] 85.0 mg/dL Critically high 7.0-18.[address] [facility] Comment on above: Performed By: #### C SHARI, BMP ####[facility] [address] [place], [place] [address]Dr. Marlin Gonzalez Urea nitrogen/Creatinine [Mass ratio] 23.2 mg/mg Normal [facility] Comment on above: Performed By: #### C SHARI, BMP ####[facility] [address] [place], [place] [address]Dr. Marlin Gonzalez PROTIMEon 11-16-2021 INR Coag (PPP) [Relative time] 1.06 {INR} Normal [facility] Comment on above: Performed By: #### P T, PTT ####[facility] [address] [place] [address]Dr. Marlin Gonzalez INR GUIDELINES SEE BELOW Normal [facility] Comment on above: Result Comment: WALI RED INR: 2.0 - 3.0 CONDITIONS NOT LISTED BELOW 2.5 - 3.5 FOR PROSTHETIC HEART VALVE REPLACEMENT 2.5 - 3.5 RECURRENT THROMBOSIS Performed By: #### P T, PTT ####[facility] [address] [place] [address]Dr. Marlin Gonzalez PT Coag (PPP) [Time] 11.4 s Normal 9.0-11.[address] [facility] Comment on above: Performed By: #### P T, PTT ####[facility] [address] [place] [address]Dr. Marlin Gonzalez PTTon 11-16-2021 aPTT Coag (Bld) [Time] 30.5 s Normal 22.3-36.2 [facility] Comment on above: Performed By: #### P T, PTT ####[facility] S[address] [place], [place] [address]DrLucia Marlin Gonzalez Platelet poor plasma interna tional normalized ratio (INR) by coagulation assay (relatOrdered By: Carlton Mtz on 11-16-2021 INR Coag (PPP) [Relative time] 1.3 {INR} [facility] Comment on above: INR Therapeutic Rang e A) Pre- and Peroperative OAT started two weeks before surgery. NOT HIP SURGERY: 1.5 - 2.5 HIP SURGERY: 2 - 3B) Primary and secondary prevention of venous THROMBOSIS: 2 - 3C) Active venous thrombosis, pulmonary embolismand prevention of recurrent venous thrombosis: 2 - 3D) Prevention of arterial thromboembolismincluding patients with mechanical heart valves: 3 - 4.5 Protein [Mass/volume] in Ser um or PlasmaOrdered By: Carlton Mtz on 11-16-2021 Protein [Mass/Vol] 5.7 g/dL 6.1-7.9 [facility] Serum or plasma alanine iqbal otransferase measurement without P-5'-P (enzymatic activiOrdered By: Carlton Mtz on 11-16-2021 ALT No additional P-5'-P [Catalytic activity/Vol] 37 U/L [facility] Serum or plasma albumin/glob ulin mass ratioOrdered By: Carlton Mtz on 11-16-2021 Albumin/Globulin [Mass ratio] 0.8 {ratio} [facility] Serum or plasma alkaline fidel sphatase measurement (enzymatic activity/volume)Ordered By: Cralton Mtz on 11-16-2021 ALP [Catalytic activity/Vol] 85 U/L [facility] Serum or plasma aspartate am inotransferase measurement (enzymatic activity/volume)Ordered By: Carlton Mtz on 11-16-2021 AST [Catalytic activity/Vol] 34 U/L [facility] Serum or plasma creatine kin ase MB (CKMB)/total creatine kinase (CK) ratio by calculaOrdered By: Carlton Mtz on 11-16-2021 CK.MB Calc [Catalytic fraction] 4.5 % 0.00-2.50 [facility] Serum or plasma creatine kin ase MB measurement (mass/volume)Ordered By: Carlton Mtz on 11-16-2021 CK.MB [Mass/Vol] 13.0 ng/mL 0.6-6.3 [facility] Serum or plasma non-glucuron idated bilirubin measurement (mass/volume)Ordered By: Carlton Mtz on 11-16-2021 Bilirubin.indirect [Mass/Vol] 0.4 mg/dL [facility] Serum or plasma total biliru bin measurement (mass/volume)Ordered By: Carlton Mtz on 11-16-2021 Bilirubin [Mass/Vol] 0.5 mg/dL 0.3-1.2 [facility] XR CHEST 1 Von 11-16-2021 XR CHEST 1 V Normal [facility] CBC AUTO DIFFon 11-12-2021 BASO # 0.0 103/ul Normal 0.0-0.[address] [facility] Comment on above: Performed By: #### C BC ####[facility] [address] [place], [place] [address]Dr. Marlin Gonzalez Basophils/100 WBC (Bld) 0.5 % Normal 0.2-2.0 [facility] Comment on above: Performed By: #### C BC ####[facility] [address]fe[address] [place], [place] [address]Dr. Marlin Gonzalez EO # 0.4 103/ul Normal 0.0-0.[address] [facility] Comment on above: Performed By: #### C BC ####[facility] Ozicykqorf[address] [place], [place] [address]Dr. Marlin Gonzalez Eosinophils/100 WBC (Bld) 6.2 % Normal 0.9-7.[address] [facility] Comment on above: Performed By: #### C BC ####[facility] [address] [place], [place] [address]Dr. Marlin Gonzalez Erythrocyte distribution width (RBC) [Ratio] 14.8 % Normal 11.0-15.[address] [facility] Comment on above: Performed By: #### C BC ####[facility] [address] [place], [place] [address]Dr. Marlin Gonzalez Hematocrit (Bld) [Volume fraction] 26.7 % Critically low 36.0-48.[address] [facility] Comment on above: Performed By: #### C BC ####[facility] [address] [place], [place] [address]Dr. Marlin Gonzalez Hemoglobin (Bld) [Mass/Vol] 8.4 g/dL Critically low 12.0-16.[address] [facility] Comment on above: Performed By: #### C BC ####[facility] Gss[address]fi[address] [place], [place] [address]Dr. Marlin Gonzalez IG # 0.02 10e3/ul Normal 0.00-0.03 [facility] Comment on above: Performed By: #### C BC ####[facility] [address] [place], [place] [address]DrLucia Gonzalez IG % 0.3 % Normal 0.0-0.[address] [facility] Comment on above: Performed By: #### C BC ####[facility] [address] [place] [address]DrLucia Katherinearmando Gonzalez LYMPH # 1.3 103/ul Normal 1.2-3.[address] [facility] Comment on above: Performed By: #### C BC ####[facility] [address] [place] [address]DrLucia Katherinearmando Gonzalez Lymphocytes/100 WBC (Bld) 21.2 % Normal 20.5-60.[address] [facility] Comment on above: Performed By: #### C BC ####[facility] O[address]oz[address] [place], [place] [address]DrLucia Katherinearmando Gonzalez MANUAL DIFF REQ NO Normal [facility] Comment on above: Performed By: #### C BC ####[facility] [address] [place], [place] [address]DrLucia Katherinearmando Gonzalez MCH (RBC) [Entitic mass] 29.7 pg Normal 26.7-34.[address] [facility] Comment on above: Performed By: #### C BC ####[facility] [address] [place], [place] [id number] Marlin Carlos MCHC (RBC) [Mass/Vol] 31.5 g/dL Normal 29.9-35.[address] [facility] Comment on above: Performed By: #### C BC ####[facility] [address] [place], [place] [address]DrLucia Gonzalez MCV (RBC) [Entitic vol] 94.3 fL Normal 81.0-99.0 [facility] Comment on above: Performed By: #### C BC ####[facility] [address] [place], [place] [id number] Gonzalez MONO # 0.8 103/ul Normal 0.3-0.[address] [facility] Comment on above: Performed By: #### C BC ####[facility] [address] [place] [id number] Gonzalez Monocytes/100 WBC (Bld) 13.1 % Critically high 1.7-12. 0 [facility] Comment on above: Performed By: #### C BC ####[facility] [address] [place] [address]Dr. Marlin Gonzalez NEUT # 3.6 103/ul Normal 1.4-6.5 [facility] Comment on above: Performed By: #### C BC ####[facility] T[address]ixiz[address] [place] [address]Dr. Marlin Gonzalez Neutrophils/100 WBC (Bld) 58.7 % Normal 43.0-75.0 [facility] Comment on above: Performed By: #### C BC ####[facility] [address]fe[address] [place] [address]Dr. Marlin Gonzalez Platelet mean volume (Bld) [Entitic vol] 9.6 fL Normal 9.5-13.5 [facility] Comment on above: Performed By: #### C BC ####[facility] Hzynfpusmb[address] [place] [address]Dr. Marlin Gonzalez PLT 274 103/ul Normal 150-450 [facility] Comment on above: Performed By: #### C BC ####[facility] Qfuwnpwawo[address] [place], [place] [address]Dr. Marlin Gonzalez RBC 2.83 106/ul Critically low 4.20-5.40 [facility] Comment on above: Performed By: #### C BC ####[facility] [address]js[address] [place] [address]Dr. Marlin Gonzalez WBC 6.1 103/ul Normal 4.0-11.0 [facility] Comment on above: Performed By: #### C BC ####[facility] [address]em[address] [place] [address]Dr. Marlin Gonzalez PH, BODY FLUIDon 11-12-2021 pH, Body Fluid 7.6 Normal Not Estab. [facility] Comment on above: Result Comment: The reference interval(s) and other method performance specificationshave not been established for this body fluid. The test result must beintegrated into the clinical context for interpretation. Performed By: #### B DYFLPH ####[facility] [address]zxktpo[address] [place] [address]Dr. Marlin Gonzalez POINT OF CARE GLUCOSEon 10-0 Glucose [Mass/Vol] 245 mg/dL Critically high 74-106 [facility] Comment on above: Performed By: #### P OCGLUC ####[facility] [address]bv[address]knr27[address] [place] [address]Dr. Marlin Gonzalez PROF CHEM 8 (BAS METB)on Anion gap [Moles/Vol] 13.4 mmol/L Normal [facility] Comment on above: Performed By: #### B MP ####[facility] Yrocls[address]vq[address] [place], [place] [address]Dr. Marlin Gonzalez Calcium [Mass/Vol] 8.4 mg/dL Critically low 8.5-10.1 [facility] Comment on above: Performed By: #### B MP ####[facility] [address]zmujig[address] [place], [place] [address]Dr. Marlin Gonzalez Chloride [Moles/Vol] 101 mmol/L Normal 98-[address] [facility] Comment on above: Performed By: #### B MP ####[facility] [address]we[address] [place], [place] [address]Dr. Marlin Gonzaelz CO2 [Moles/Vol] 26.2 mmol/L Normal 21.0-32.[address] [facility] Comment on above: Performed By: #### B MP ####[facility] [address] [place], [place] [address]Dr. Marlin Gonzalez Creatinine [Mass/Vol] 2.87 mg/dL Critically high 0.55-1.[address] [facility] Comment on above: Performed By: #### B MP ####[facility] Mngicpidth[address] [place], [place] [address]Dr. Marlin Gonzalez EGFR-AF ANDORRAN 19 mL/min/1.73m2 Critically low >=[address] [facility] Comment on above: Performed By: #### B MP ####[facility] Kponvlqjdw[address] [place], [place] [address]Dr. Marlin Gonzalez EGFR-NON AF ANDORRAN 16 mL/min/1.73m2 Critically low >=[address] [facility] Comment on above: Performed By: #### B MP ####[facility] [address]qcmoyeztv2[address] [place] [address]Dr. Marlin Gonzalez Glucose [Mass/Vol] 137 mg/dL Critically high 74-106 [facility] Comment on above: Performed By: #### B MP ####[facility] [address] [place], [place] [address]Dr. Marlin Gonzalez Potassium [Moles/Vol] 3.6 mmol/L Normal 3.5-5.[address] [facility] Comment on above: Performed By: #### B MP ####[facility] Cmzluxlwbb[address] [place], [place] [address]Dr. Marlin Gonzalez Sodium [Moles/Vol] 137 mmol/L Normal 136-[address] [facility] Comment on above: Performed By: #### B MP ####[facility] [address]so[address] [place], [place] [address]Dr. Marlin Gonzalez Urea nitrogen [Mass/Vol] 73.0 mg/dL Critically high 7.0-18.[address] [facility] Comment on above: Performed By: #### B MP ####[facility] [address] [place], [place] [address]Dr. Marlin Gonzalez Urea nitrogen/Creatinine [Mass ratio] 25.4 mg/mg Normal [facility] Comment on above: Performed By: #### B MP ####[facility] [address]bl[address] [place], [place] [address]Dr. Marlin Gonzalez CBC AUTO DIFFon 11-11-2021 BASO # 0.0 103/ul Normal 0.0-0.[address] [facility] Comment on above: Performed By: #### C BC ####[facility] [address]xn[address] [place], [place] [address]Dr. Marlin Gonzalez Basophils/100 WBC (Bld) 0.3 % Normal 0.2-2.0 [facility] Comment on above: Performed By: #### C BC ####[facility] Hflyequerx[address] [place], [place] [address]Dr. Marlin Gonzalez EO # 0.4 103/ul Normal 0.0-0.7 [facility] Comment on above: Performed By: #### C BC ####[facility] Fixgzmnxiz[address] [place] [address]Dr. Marlin Gonzalez Eosinophils/100 WBC (Bld) 5.5 % Normal 0.9-7.0 [facility] Comment on above: Performed By: #### C BC ####[facility] [address]je[address] [place], [place] [address]Dr. Marlin Gonzalez Erythrocyte distribution width (RBC) [Ratio] 14.6 % Normal 11.0-15.0 [facility] Comment on above: Performed By: #### C BC ####[facility] Yeguotrbng[address] [place], [place] [address]Dr. Marlin Gonzalez Hematocrit (Bld) [Volume fraction] 26.4 % Critically low 36.0-48.0 [facility] Comment on above: Performed By: #### C BC ####[facility] V[address]jcynk[address] [place], [place] [address]Dr. Marlin Gonzalez Hemoglobin (Bld) [Mass/Vol] 8.4 g/dL Critically low 12.0-16.0 [facility] Comment on above: Performed By: #### C BC ####[facility] M[address]zaofov[address] [place], [place] [address]Dr. Marlin Gonzalez IG # 0.03 10e3/ul Normal 0.00-0.03 [facility] Comment on above: Performed By: #### C BC ####[facility] Ske[address]qocjy[address] [place], [place] [address]Dr. Marlin Carlos IG % 0.4 % Normal 0.0-0.5 [facility] Comment on above: Performed By: #### C BC ####[facility] Xltkpuedhf[address] [place], [place] [address]DrLucia Gonzalez LYMPH # 1.2 103/ul Normal 1.2-3.8 [facility] Comment on above: Performed By: #### C BC ####[facility] [address] [place], [place] [address]Dr. Marlin Gonzalez Lymphocytes/100 WBC (Bld) 16.5 % Critically low 20.5-60.[address] [facility] Comment on above: Performed By: #### C BC ####[facility] [address]wqz[address] [place] [address]Dr. Marlin Gonzalez MANUAL DIFF REQ NO Normal [facility] Comment on above: Performed By: #### C BC ####[facility] [address]jmsi[address] [place] [address]Dr. Marlin Gonzalez MCH (RBC) [Entitic mass] 30.0 pg Normal 26.7-34.[address] [facility] Comment on above: Performed By: #### C BC ####[facility] [address]zg[address] [place], [place] [address]Dr. Marlin Gonzalez MCHC (RBC) [Mass/Vol] 31.8 g/dL Normal 29.9-35.[address] [facility] Comment on above: Performed By: #### C BC ####[facility] [address]rw[address] [place], [place] [address]Dr. Marlin Gonzalez MCV (RBC) [Entitic vol] 94.3 fL Normal 81.0-99.0 [facility] Comment on above: Performed By: #### C BC ####[facility] Kr[address]emr[address] [place], [place] [address]Dr. Marlin Gonzalez MONO # 0.8 103/ul Normal 0.3-0.[address] [facility] Comment on above: Performed By: #### C BC ####[facility] [address]ff[address] [place], [place] [address]DrLucia Gonzalez Monocytes/100 WBC (Bld) 11.4 % Normal 1.7-12.0 [facility] Comment on above: Performed By: #### C BC ####[facility] [address] [place], [place] [address]DrLucia Gonzalez NEUT # 4.7 103/ul Normal 1.4-6.[address] [facility] Comment on above: Performed By: #### C BC ####[facility] [address] [place] [address]DrLucia Gonzalez Neutrophils/100 WBC (Bld) 65.9 % Normal 43.0-75.[address] [facility] Comment on above: Performed By: #### C BC ####[facility] [address]ksllakjbv[address] [place] [address]Dr. Katherinearmando Carlos Platelet mean volume (Bld) [Entitic vol] 9.7 fL Normal 9.5-13.[address] [facility] Comment on above: Performed By: #### C BC ####[facility] Apouhomxqe05[address] [place] [address]Dr. Marlin Gonzalez PLT 254 103/ul Normal 150-[address] [facility] Comment on above: Performed By: #### C BC ####[facility] U[address]lur[address] [place], [place] [address]Dr. Marlin Gonzalez RBC 2.80 106/ul Critically low 4.20-5.[address] [facility] Comment on above: Performed By: #### C BC ####[facility] Ncswnefzpm[address] [place], [place] [address]Dr. Marlin Gonzalez WBC 7.1 103/ul Normal 4.0-11.[address] [facility] Comment on above: Performed By: #### C BC ####[facility] Sexboztgro[address] [place], [place] [address]Dr. Marlin Gonzalez POINT OF CARE GLUCOSEon 10-0 Glucose [Mass/Vol] 137 mg/dL Critically high 74-106 [facility] Comment on above: Performed By: #### P OCGLUC ####[facility] Uxtxebnium45[address] [place], [place] [address]Dr. Marlin Gonzalez Glucose [Mass/Vol] 144 mg/dL Critically high 74-106 [facility] Comment on above: Performed By: #### P OCGLUC ####[facility] Djummxpxok338[address] [place], [place] [address]Dr. Marlin Gonzalez Glucose [Mass/Vol] 217 mg/dL Critically high 74-106 [facility] Comment on above: Performed By: #### P OCGLUC ####[facility] Esibtkrkwr419[address] [place], [place] [address]DrLucia Gonzalez PROF CHEM 8 (BAS METB)on Anion gap [Moles/Vol] 12.0 mmol/L Normal Th [facility] Comment on above: Performed By: #### B MP ####[facility] Skwh[address]ytk[address] [place] [address]Dr. Marlin Carlos Calcium [Mass/Vol] 8.5 mg/dL Normal 8.5-10.[address] [facility] Comment on above: Performed By: #### B MP ####[facility] Ffssuxrvzv206[address] [place], [place] [address]Dr. Marlin Gonzalez Chloride [Moles/Vol] 100 mmol/L Normal 98-[address] [facility] Comment on above: Performed By: #### B MP ####[facility] Ikmuyurexv13[address] [place], [place] [address]Dr. Marlin Gonzalez CO2 [Moles/Vol] 25.5 mmol/L Normal 21.0-32.[address] [facility] Comment on above: Performed By: #### B MP ####[facility] Epdvfskqvh0860[address] [place], [place] [address]Dr. Marlin Gonzalez Creatinine [Mass/Vol] 2.94 mg/dL Critically high 0.55-1.[address] [facility] Comment on above: Performed By: #### B MP ####[facility] Rfsybgwcuy1955[address] [place], [place] [address]Dr. Marlin Gonzalez EGFR-AF ANDORRAN 19 mL/min/1.73m2 Critically low >=[address] [facility] Comment on above: Performed By: #### B MP ####[facility] Mvrbglqnpr7037[address] [place], [place] [address]Dr. Marlin Gonzalez EGFR-NON AF ANDORRAN 16 mL/min/1.73m2 Critically low >=[address] [facility] Comment on above: Performed By: #### B MP ####[facility] Onbhmkrfbd032[address] [place], [place] [address]Dr. Marlin Gonzalez Glucose [Mass/Vol] 162 mg/dL Critically high 74-106 [facility] Comment on above: Performed By: #### B MP ####[facility] Ifdzwilpjd032362 [address] [place], [place] [address]Dr. Marlin Gonzalez Potassium [Moles/Vol] 3.5 mmol/L Normal 3.5-5.[address] [facility] Comment on above: Performed By: #### B MP ####[facility] Cthblujpsn620[address] [place], [place] [address]Dr. Marlin Gonzalez Sodium [Moles/Vol] 134 mmol/L Critically low 136-145 Th [facility] Comment on above: Performed By: #### B MP ####[facility] Dvcihsidyo744[address] [place], [place] [address]Dr. Marlin Gonzalez Urea nitrogen [Mass/Vol] 78.0 mg/dL Critically high 7.0-18.[address] [facility] Comment on above: Performed By: #### B MP ####[facility] Immurmsybm129[address] [place], [place] [address]Dr. Marlin Carlos Urea nitrogen/Creatinine [Mass ratio] 26.5 mg/mg Normal [facility] Comment on above: Performed By: #### B MP ####[facility] Ogieudejti499[address] [place], [place] [address]Dr. Marlin Carlos CBC AUTO DIFFon 11-10-2021 BASO # 0.0 103/ul Normal 0.0-0.[address] [facility] Comment on above: Performed By: #### C BC ####[facility] Qfdapqohrs7966[address] [place], [place] [address]Dr. Marlin Carlos Basophils/100 WBC (Bld) 0.4 % Normal 0.2-2.0 [facility] Comment on above: Performed By: #### C BC ####[facility] Rrqtuvxaas144[address] [place], [place] [address]Dr. Marlin Carlos EO # 0.4 103/ul Normal 0.0-0.[address] [facility] Comment on above: Performed By: #### C BC ####[facility] Mkykehefdw153[address] [place], [place] [address]Dr. Marlin Carlos Eosinophils/100 WBC (Bld) 5.3 % Normal 0.9-7.[address] [facility] Comment on above: Performed By: #### C BC ####[facility] Kxuqrzhrzm3060 [place] [address]Dr. Marlin Gonzalez Erythrocyte distribution width (RBC) [Ratio] 14.5 % Normal 11.0-15.[address] [facility] Comment on above: Performed By: #### C BC ####[facility] Mhglmkulvm8999 [place] [address]Dr. Marlin Gonzalez Hematocrit (Bld) [Volume fraction] 26.9 % Critically low 36.0-48.0 [facility] Comment on above: Performed By: #### C BC ####[facility] Fbrdlneyqw984[address] [place], [place] [address]Dr. Marlin Gonzalez Hemoglobin (Bld) [Mass/Vol] 8.6 g/dL Critically low 12.0-16.0 [facility] Comment on above: Performed By: #### C BC ####[facility] Fkrtdizqxk660362 [address] [place], [place] [address]Dr. Marlin Gonzalez IG # 0.03 10e3/ul Normal 0.00-0.03 [facility] Comment on above: Performed By: #### C BC ####[facility] Dafahivfwx035[address] [place], [place] [address]Dr. Marlin Gonzalez IG % 0.4 % Normal 0.0-0.[address] [facility] Comment on above: Performed By: #### C BC ####[facility] Bhcvabykot353062 [address] [place], [place] [address]Dr. Marlin Gonzalez LYMPH # 1.2 103/ul Normal 1.2-3.8 [facility] Comment on above: Performed By: #### C BC ####[facility] Gbnwziokuc0028[address] [place], [place] [address]Dr. Marlin Gonzalez Lymphocytes/100 WBC (Bld) 15.0 % Critically low 20.5-60.0 [facility] Comment on above: Performed By: #### C BC ####[facility] Cwywqpvtit009[address] [place], [place] [address]Dr. Marlin Gonzalez MANUAL DIFF REQ NO Normal [facility] Comment on above: Performed By: #### C BC ####[facility] Ovpgqsbkin0387 [place] [id number]. Marlin Carlos MCH (RBC) [Entitic mass] 30.2 pg Normal 26.7-34.[address] [facility] Comment on above: Performed By: #### C BC ####[facility] Cyigncaote4528 [place] [address]Dr. Marlin Carlos MCHC (RBC) [Mass/Vol] 32.0 g/dL Normal 29.9-35.[address] [facility] Comment on above: Performed By: #### C BC ####[facility] Jlvnmibshi3675 [place] [address]Dr. Katherinearmando Gonzalez MCV (RBC) [Entitic vol] 94.4 fL Normal 81.0-99.0 [facility] Comment on above: Performed By: #### C BC ####[facility] Xgdtnzkhnm465[address] [place], [place] [address]Dr. Marlin Gonzalez MONO # 0.6 103/ul Normal 0.3-0.[address] [facility] Comment on above: Performed By: #### C BC ####[facility] Lftxsqsebu010[address] [place], [place] [address]Dr. Marlin Gonzalez Monocytes/100 WBC (Bld) 8.3 % Normal 1.7-12.0 [facility] Comment on above: Performed By: #### C BC ####[facility] Wwurukqrju9424[address] [place], [place] [address]Dr. Marlin Gonzalez NEUT # 5.4 103/ul Normal 1.4-6.[address] [facility] Comment on above: Performed By: #### C BC ####[facility] Kdwbzhzgrn39[address] [place], [place] [address]Dr. Marlin Gonzalez Neutrophils/100 WBC (Bld) 70.6 % Normal 43.0-75.[address] [facility] Comment on above: Performed By: #### C BC ####[facility] Arsfgyossk2830[address] [place], [place] [address]Dr. Marlin Gonzalez Platelet mean volume (Bld) [Entitic vol] 9.6 fL Normal 9.5-13.[address] [facility] Comment on above: Performed By: #### C BC ####[facility] Gcahwnwjfa2333 [place] [phone]. Marlin Gonzalez PLT 239 103/ul Normal 150-[address] [facility] Comment on above: Performed By: #### C BC ####[facility] Etebrrhiae3542 [place] [phone]. Marlin Gonzalez RBC 2.85 106/ul Critically low 4.20-5.[address] [facility] Comment on above: Performed By: #### C BC ####[facility] Eopthgakta9271 [place] [phone]. Marlin Gonzalez WBC 7.7 103/ul Normal 4.0-11.[address] [facility] Comment on above: Performed By: #### C BC ####[facility] Btsllwtkxi4047 [place] [address]Dr. Marlin Gonzalez POINT OF CARE GLUCOSEon Glucose [Mass/Vol] 196 mg/dL Critically high 74-106 [facility] Comment on above: Performed By: #### P OCGLUC ####[facility] Hdwxdrqvxb1274 [place] [address]Dr. Marlin Gonzalez Glucose [Mass/Vol] 211 mg/dL Critically high 74-106 [facility] Comment on above: Performed By: #### P OCGLUC ####[facility] Ipazlcgbwp5170 [place] [address]Dr. Marlin Gonzalez Glucose [Mass/Vol] 235 mg/dL Critically high 74-106 [facility] Comment on above: Performed By: #### P OCGLUC ####[facility] Mpkksbnhhr3671 [place] [address]Dr. Marlin Gonzalez PROF CHEM 8 (BAS METB)on Anion gap [Moles/Vol] 11.2 mmol/L Normal [facility] Comment on above: Performed By: #### B MP ####[facility] Alobierxfj0643 [place] [address]Dr. Marlin Gonzalez Calcium [Mass/Vol] 8.2 mg/dL Critically low 8.5-10.1 [facility] Comment on above: Performed By: #### B MP ####[facility] Ogsvuvyewy5817 [place] [phone]. Marlin Gonzalez Chloride [Moles/Vol] 100 mmol/L Normal 98-[address] [facility] Comment on above: Performed By: #### B MP ####[facility] Tdmzjehhiv0629 [place] [phone]. Marlin Gnozalez CO2 [Moles/Vol] 26.4 mmol/L Normal 21.0-32.[address] [facility] Comment on above: Performed By: #### B MP ####[facility] Zgghjutkww[address] [place], [place] [address]Dr. Marlin Gonzalez Creatinine [Mass/Vol] 3.13 mg/dL Critically high 0.55-1.[address] [facility] Comment on above: Performed By: #### B MP ####[facility] Hlvnustlcw498[address] [place], [place] [address]Dr. Marlin Gonzalez EGFR-AF ANDORRAN 18 mL/min/1.73m2 Critically low >=[address] [facility] Comment on above: Performed By: #### B MP ####[facility] Uelrfhfkos94[address] [place], [place] [id number]. Marlin Gonzalez EGFR-NON AF ANDORRAN 15 mL/min/1.73m2 Critically low >=[address] [facility] Comment on above: Performed By: #### B MP ####[facility] Fxsdnyzqmo4636 [place] [address]Dr. Marlin Gonzalez Glucose [Mass/Vol] 139 mg/dL Critically high 74-106 [facility] Comment on above: Performed By: #### B MP ####[facility] Vmgjeyxrty5432 [place] [phone]. Marlin Gonzalez Potassium [Moles/Vol] 3.6 mmol/L Normal 3.5-5.[address] [facility] Comment on above: Performed By: #### B MP ####[facility] Kjknrcjzka08[address] [place], [place] [address]Dr. Marlin Gonzalez Sodium [Moles/Vol] 134 mmol/L Critically low 136-145 [facility] Comment on above: Performed By: #### B MP ####[facility] Yhpnuwhfaj0479 [place] [address]Dr. Marlin Gonzalez Urea nitrogen [Mass/Vol] 84.0 mg/dL Critically high 7.0-18.[address] [facility] Comment on above: Performed By: #### B MP ####[facility] Kflnsngcep793[address] [place], [place] [address]Dr. Marlin Gonzalez Urea nitrogen/Creatinine [Mass ratio] 26.8 mg/mg Normal [facility] Comment on above: Performed By: #### B MP ####[facility] Hnjhqbjjyh[address] [place], [place] [address]Dr. Marlin Gonzalez CBC AUTO DIFFon 11-09-2021 BASO # 0.0 103/ul Normal 0.0-0.[address] [facility] Comment on above: Performed By: #### C BC ####[facility] Xqbrmuhzrm0022[address] [place], [place] [address]Dr. Marlin Gonzalez Basophils/100 WBC (Bld) 0.2 % Normal 0.2-2.0 [facility] Comment on above: Performed By: #### C BC ####[facility] Cvivzbjere354[address] [place], [place] [address]Dr. Marlin Gonzalez EO # 0.5 103/ul Normal 0.0-0.[address] [facility] Comment on above: Performed By: #### C BC ####[facility] Zxdiajckyp632[address] [place], [place] [address]Dr. Marlin Gonzalez Eosinophils/100 WBC (Bld) 7.3 % Critically high 0.9-7.[address] [facility] Comment on above: Performed By: #### C BC ####[facility] Jclmtrhlnp0024[address] [place], [place] [address]Dr. Marlin Gonzalez Erythrocyte distribution width (RBC) [Ratio] 14.5 % Normal 11.0-15.[address] [facility] Comment on above: Performed By: #### C BC ####[facility] Hmictppmzs2988[address] [place], [place] [address]Dr. Marlin Gonzalez Hematocrit (Bld) [Volume fraction] 26.5 % Critically low 36.0-48.[address] [facility] Comment on above: Performed By: #### C BC ####[facility] Vkgdahztwh7907 [place] [address]DrLucia Marlin Gonzalez Hemoglobin (Bld) [Mass/Vol] 8.3 g/dL Critically low 12.0-16.[address] [facility] Comment on above: Performed By: #### C BC ####[facility] Ldgzfcblbt4747[address] [place], [place] [address]DrLucia Gonzalez IG # 0.02 10e3/ul Normal 0.00-0.[address] [facility] Comment on above: Performed By: #### C BC ####[facility] Auubmswzfh145[address] [place], [place] [address]DrLucia Gonzalez IG % 0.3 % Normal 0.0-0.[address] [facility] Comment on above: Performed By: #### C BC ####[facility] Zbkyqwbevo530[address] [place], [place] [address]DrLucia Gonzalez LYMPH # 1.1 103/ul Critically low 1.2-3.[address] [facility] Comment on above: Performed By: #### C BC ####[facility] Ulaqbwnvus2064[address] [place], [place] [address]DrLucia Gonzalez Lymphocytes/100 WBC (Bld) 17.4 % Critically low 20.5-60.[address] [facility] Comment on above: Performed By: #### C BC ####[facility] Pckdgiclpc55[address] [place], [place] [address]DrLucia Gonzalez MANUAL DIFF REQ NO Normal [facility] Comment on above: Performed By: #### C BC ####[facility] Khkfwsxofa08[address] [place], [place] [address]DrLucia Gonzalez MCH (RBC) [Entitic mass] 29.5 pg Normal 26.7-34.[address] [facility] Comment on above: Performed By: #### C BC ####[facility] Abwtivoxqm540[address] [place], [place] [address]DrLucia Gonzalez MCHC (RBC) [Mass/Vol] 31.3 g/dL Normal 29.9-35.[address] [facility] Comment on above: Performed By: #### C BC ####[facility] Jbkkkgsqio3093 [place] [address]DrLucia Gonzalez MCV (RBC) [Entitic vol] 94.3 fL Normal 81.0-99.0 [facility] Comment on above: Performed By: #### C BC ####[facility] Jzotsbpqgt6414[address] [place], [place] [address]DrLucia Gonzalez MONO # 0.6 103/ul Normal 0.3-0.[address] [facility] Comment on above: Performed By: #### C BC ####[facility] Mxbtnqjgwr724[address] [place], [place] [address]DrLucia Gonzalez Monocytes/100 WBC (Bld) 9.1 % Normal 1.7-12.0 [facility] Comment on above: Performed By: #### C BC ####[facility] Ryazxauqfd8830[address] [place], [place] [address]DrLucia Gonzalez NEUT # 4.1 103/ul Normal 1.4-6.[address] [facility] Comment on above: Performed By: #### C BC ####[facility] Fzmutingkf337[address] [place], [place] [address]DrLucia Gonzalez Neutrophils/100 WBC (Bld) 65.7 % Normal 43.0-75.[address] [facility] Comment on above: Performed By: #### C BC ####[facility] Eejnyaruif754[address] [place], [place] [address]DrLucia Gonzalez Platelet mean volume (Bld) [Entitic vol] 9.8 fL Normal 9.5-13.[address] [facility] Comment on above: Performed By: #### C BC ####[facility] Hjgkrhpijb[address] [place], [place] [address]DrLucia Gonzalez PLT 209 103/ul Normal 150-450 [facility] Comment on above: Performed By: #### C BC ####[facility] Xprkyrczce408[address] [place], [place] [address]DrLucia Gonzalez RBC 2.81 106/ul Critically low 4.20-5.[address] [facility] Comment on above: Performed By: #### C BC ####[facility] Feyvaorino559[address] [place], [place] [address]Dr. Marlin Gonzalez WBC 6.2 103/ul Normal 4.0-11.[address] [facility] Comment on above: Performed By: #### C BC ####[facility] Cmvnyzwfzq649[address] [place], [place] [address]Dr. Marlin Gonzalez CELL COUNT BODY FLUIDon 09-3 0-2021 Clarity, Serous Clear Normal Clear [facility] Comment on above: Performed By: #### C CBFS ####[facility] Linexkwrrb422[address] [place], [place] [address]Dr. Marlin Gonzalez Color, Serous Yellow Normal [facility] Comment on above: Result Comment: Vale rless to Pale Yellow/Straw Performed By: #### C CBFS ####[facility] Ctedryriwx4259[address] [place], [place] [address]Dr. Marlin Gonzalez Comments: Normal [facility] Comment on above: Performed By: #### C CBFS ####[facility] Bipqaxkivv18[address] [place], [place] [address]Dr. Marlin Gonzalez Eosinophils/100 WBC (Bld) 2 % Normal Not Estab. [facility] Comment on above: Performed By: #### C CBFS ####[facility] Kuhdgpkhtv[address] [place], [place] [address]Dr. Marlin Gonzalez Lining Cells, Serous Normal [facility] Comment on above: Performed By: #### C CBFS ####[facility] Gnunlzdjig7[address] [place], [place] [address]Dr. Marlin Gonzalez Lymphocytes/100 WBC (Bld) 26 % Normal Not Estab. [facility] Comment on above: Performed By: #### C CBFS ####[facility] Cdodcjhqft7522[address] [place], [place] [address]Dr. Katherinearmando Gonzalez Macrophages, Serous 40 % Normal Not Estab. [facility] Comment on above: Performed By: #### C CBFS ####[facility] Eywoeysnex1814[address] [place], [place] [address]Dr. Marlin Gonzalez Nucleated Cells, Serous 116 /mm3 Normal 0-499 [facility] Comment on above: Result Comment: Pleu ral Fluid, with <1000 Nucleated cells/uL has been associated with transudates while >1000 uL may be seen in exudates. Performed By: #### C CBFS ####[facility] Wvqdicfqrl7759 [place], [place] [address]Ww. Marlin Gonzalez Polys, Serous 32 % Critically high 0-[address] [facility] Comment on above: Performed By: #### C CBFS ####[facility] Ifgxuacpps0689 [place] [phone]. Marlin Gonzalez RBC, Serous Rare Normal Not Estab. [facility] Comment on above: Performed By: #### C CBFS ####[facility] Untadnktgm4551 [place] [phone]. Marlin Gonzalez GLUCOSE BODYFLUIDon 11-10-19 22 Glucose, Body Fluid 109 mg/dL Normal [facility] Comment on above: Result Comment: ____ : BODY FLUID TYPE : GLUCOSE : : : : : Amniotic Fluid : 45 - 76 : : : : : Bile, Clear : < 5 : : : : : Bile, Yellow : < 8 : : : : : Lymph : 48 - 200 : : : : : Nasal Secretion : < 10 : : : : : Pleural Fluid : 65 - 99 : : : : : Saliva : < 2 : : (Mixed Glands) : : : : : : Sweat : < 7 : : : : : Synovial Fluid : 65 - 99 : : : : : Tears : 76 - 288 : : : : . Houstonia W, Jennyfer V. Reference Intervals for Adults and Children 2007. Ninth edition (V9.1) [employer], [facility]; [place]: August 2008.The reference intervals and other method performance specificationshave not been established for this test. The test result should beintegrated into the clinical context for interpretation. Performed By: #### B FGLUC ####[facility] [address] [place] [address]. Marlin Gonzalez LACTIC ACID DEHYDROGENASE (L D), BODY FLUon 11-09-2021 LD, Body Fluid 127 IU/L Normal [facility] Comment on above: Result Comment: ____ : BODY FLUID TYPE : LDH : : : : : : Nonmalignant: < 60% : : : of the serum LDH : : Ascitic Fluid : Malignant: > 60% : : : of the serum LDH : : : : : Gastric Juice : < 35 : : : : : : Transudate: <200 : : Pleural Fluid : Exudate: >200 : : : : : Saliva : 113 - 609 : : (Mixed Glands) : : : : : : Synovial Fluid : <240 : : : : . Jose Miguel WJennyfer V. Reference Intervals for Adults and Children 2008. Ninth Edition (V9.1) [employer], [facility]; [place]: August 2008.The reference intervals and other method performance specificationshave not been established for this test. The test result should beintegrated into the clinical context for interpretation. Performed By: #### L [facility] ####[address] Marlin Gonzalez PH, BODY FLUIDon 11-09-2021 pH, Body Fluid 7.4 Normal Not Estab. [facility] Comment on above: Result Comment: The reference interval(s) and other method performance specificationshave not been established for this body fluid. The test result must beintegrated into the clinical context for interpretation. Performed By: #### B DYFLPH ####[facility] Oohdqwngkt86[address] [place] [address]Dr. Katherinearmando Carlos POINT OF CARE GLUCOSEon 10-13 Glucose [Mass/Vol] 185 mg/dL Critically high [facility]106 [facility] Comment on above: Performed By: #### P OCGLUC ####[facility] Etvgggzqof100[address] [place], [place] [address]Dr. Marlin Gonzalez Glucose [Mass/Vol] 110 mg/dL Critically high [address] [place] [address] Comment on above: Performed By: #### P OCGLUC ####[facility] Lhndoqtxew47[address] [place], [place] [address]Dr. Marlin Gonzalez Glucose [Mass/Vol] 263 mg/dL Critically high [address] [place] [address] Comment on above: Performed By: #### P OCGLUC ####[facility] Rxwanwrwse8915[address] [place], [place] [address]Dr. Marlin Gonzalez Glucose [Mass/Vol] 390 mg/dL Critically high [address] [place] [address] Comment on above: Performed By: #### P OCGLUC ####[facility] Losffewsbp989[address] [place], [place] [address]Dr. Marlin Gonzalez PROF CHEM 8 (BAS METB)on Anion gap [Moles/Vol] 14.3 mmol/L Normal [facility] Comment on above: Performed By: #### B MP ####[facility] Zpkfuxuuoi19[address] [place], [place] [address]Dr. Marlin Gonzalez Calcium [Mass/Vol] 8.2 mg/dL Critically low 8.5-10.1 [facility] Comment on above: Performed By: #### B MP ####[facility] Rhjkbpufne4918[address] [place], [place] [address]Dr. Marlin Gonzalez Chloride [Moles/Vol] 101 mmol/L Normal 98-[address] [facility] Comment on above: Performed By: #### B MP ####[facility] Cfkdqhuidd3410 [place] [address]Dr. Katherinearmando Carlos CO2 [Moles/Vol] 24.4 mmol/L Normal 21.0-32.[address] [facility] Comment on above: Performed By: #### B MP ####[facility] Zbxajgyuke304[address] [place], [place] [address]Dr. Marlin Gonzalez Creatinine [Mass/Vol] 3.17 mg/dL Critically high 0.55-1.[address] [facility] Comment on above: Performed By: #### B MP ####[facility] [facility] Yczgwhtyot[address] [place], [place] [address]Dr. Marlin Gonzalez EGFR-AF ANDORRAN 17 mL/min/1.73m2 Critically low >=[address] [facility] Comment on above: Performed By: #### B MP ####[facility] [address] [place], [place] [address]Dr. Marlin Gonzalez EGFR-NON AF ANDORRAN 14 mL/min/1.73m2 Critically low >=[address] [facility] Comment on above: Performed By: #### B MP ####[facility] Fqnttckzwq[address] [place], [place] [address]Dr. Marlin Gonzalez Glucose [Mass/Vol] 147 mg/dL Critically high 74-106 [facility] Comment on above: Performed By: #### B MP ####[facility] Slpoftulpn7[address] [place], [place] [address]Dr. Marlin Gonzalez Potassium [Moles/Vol] 3.7 mmol/L Normal 3.5-5.1 [facility] Comment on above: Performed By: #### B MP ####[facility] Lvlbtjlalm20[address] [place], [place] [address]Dr. Marlin Gonzalez Sodium [Moles/Vol] 136 mmol/L Normal 136-145 [facility] Comment on above: Performed By: #### B MP ####[facility] Ertmbiyjux[address] [place], [place] [address]Dr. Marlin Gonzalez Urea nitrogen [Mass/Vol] 92.0 mg/dL Critically high 7.0-18.[address] [facility] Comment on above: Performed By: #### B MP ####[facility] [address]zbwmm[address]ec[address] [place] [address]Dr. Marlin Gonzalez Urea nitrogen/Creatinine [Mass ratio] 29.0 mg/mg Normal [facility] Comment on above: Performed By: #### B MP ####[facility] Xewckfmzpm7[address] [place] [address]Dr. Marlin Gonzalez PROTEIN, TOTAL, BODY FLUIDon 11-09-2021 Protein, Body Fluid 2.5 g/dL Normal [facility] Comment on above: Result Comment: ____ : BODY FLUID TYPE : TOTAL PROTEIN : : : : : Amniotic Fluid : <0.4 : : : : : : Nonmalignant: <3.0 : : Ascitic Fluid : Malignant: >3.0 : : : : : Bile, Clear : <0.9 : : : : : Bile, Yellow : 0.2 - 0.6 : : : : : Lymph : 2.2 - 6.0 : : : : : Human Milk : 1.9 - 2.0 : : : : : Nasal Secretion : 0.1 - 3.5 : : : : : Pancreatic : 0.0 - 0.1 : : Juice : (post stimulation) : : : : : : Transudate: <0.3 : : Pleural Fluid : Exudate: >0.3 : : : : : Saliva : 0.1 - 0.2 : : (Mixed Glands) : : : : : : Synovial Fluid : <2.5 : : : : : Tears : 0.8 - 0.9 : : : : . Jennyfer Murphy V. Reference Intervals for Adults and Children 2007. Ninth Edition (V9.1) [employer], [facility]; [place]: August 2008.The method performance specifications have not been established forthis test in body fluid. The test result should be integrated intothe clinical context for interpretation. Performed By: #### T PBF ####[facility] Yudwgivdjh15[address] [place] [address]Dr. Marlin Gonzalez XR CHEST 1 Von 11-09-2021 XR CHEST 1 V Normal [facility] CBC AUTO DIFFon 11-08-2021 BASO # 0.0 103/ul Normal 0.0-0.[address] [facility] Comment on above: Performed By: #### C BC ####[facility] Kgzvnhbiui2990 [place] [address]Dr. Marlin Carlos Basophils/100 WBC (Bld) 0.3 % Normal 0.2-2.0 [facility] Comment on above: Performed By: #### C BC ####[facility] Nmhlhydpjc[address] [place], [place] [address]Dr. Marlin Gonzalez EO # 0.4 103/ul Normal 0.0-0.7 [facility] Comment on above: Performed By: #### C BC ####[facility] Alahaiykta[address] [place], [place] [address]Dr. Marlin Gonzalez Eosinophils/100 WBC (Bld) 5.8 % Normal 0.9-7.0 [facility] Comment on above: Performed By: #### C BC ####[facility] Eoprfmbfyo060[address] [place], [place] [address]Dr. Marlin Gonzalez Erythrocyte distribution width (RBC) [Ratio] 14.5 % Normal 11.0-15.[address] [facility] Comment on above: Performed By: #### C BC ####[facility] Rdohezetzs474[address] [place], [place] [address]Dr. Marlin Gonzalez Hematocrit (Bld) [Volume fraction] 27.4 % Critically low 36.0-48.0 [facility] Comment on above: Performed By: #### C BC ####[facility] Ouflwsbiow[address] [place], [place] [address]Dr. Marlin Gonzalez Hemoglobin (Bld) [Mass/Vol] 8.6 g/dL Critically low 12.0-16.0 [facility] Comment on above: Performed By: #### C BC ####[facility] Pivmannbre[address] [place] [address]Dr. Marlin Gonzalez IG # 0.01 10e3/ul Normal 0.00-0.[address] [facility] Comment on above: Performed By: #### C BC ####[facility] Wifkytldge[address] [place], [place] [address]DrLucia Marlin Carlos IG % 0.1 % Normal 0.0-0.[address] [facility] Comment on above: Performed By: #### C BC ####[facility] Rjbtsjzbsc[address] [place], [place] [address]DrLucia Gonzalez LYMPH # 1.2 103/ul Normal 1.2-3.[address] [facility] Comment on above: Performed By: #### C BC ####[facility] Tfzsfnenvm74[address] [place], [place] [address]DrLucia Katherinearmando Gonzalez Lymphocytes/100 WBC (Bld) 17.5 % Critically low 20.5-60.[address] [facility] Comment on above: Performed By: #### C BC ####[facility] Ydmubungba[address] [place], [place] [address]DrLucia Katherinearmando Gonzalez MANUAL DIFF REQ NO Normal [facility] Comment on above: Performed By: #### C BC ####[facility] Jrowshukdv[address] [place], [place] [address]DrLucia Marlin Carlos MCH (RBC) [Entitic mass] 29.8 pg Normal 26.7-34.[address] [facility] Comment on above: Performed By: #### C BC ####[facility] Moaupnyzxy[address] [place], [place] [address]DrLucia Marlin Carlos MCHC (RBC) [Mass/Vol] 31.4 g/dL Normal 29.9-35.[address] [facility] Comment on above: Performed By: #### C BC ####[facility] Nhcbjzkhye[address] [place], [place] [address]DrLucia Katherinearmando Gonzalez MCV (RBC) [Entitic vol] 94.8 fL Normal 81.0-99.0 [facility] Comment on above: Performed By: #### C BC ####[facility] Kuqcohpsnd124[address] [place], [place] [address]Dr. Marlin Gonzalez MONO # 0.7 103/ul Normal 0.3-0.[address] [facility] Comment on above: Performed By: #### C BC ####[facility] Ktlpuumlpi8372 [place] [address]Dr. Marlin Gonzalez Monocytes/100 WBC (Bld) 11.0 % Normal 1.7-12.0 [facility] Comment on above: Performed By: #### C BC ####[facility] Mndwsknwej0502 [place] [address]Dr. Marlin Gonzalez NEUT # 4.4 103/ul Normal 1.4-6.[address] [facility] Comment on above: Performed By: #### C BC ####[facility] Nytloznztq8637 [place] [address]Dr. Marlin Gonzalez Neutrophils/100 WBC (Bld) 65.3 % Normal 43.0-75.[address] [facility] Comment on above: Performed By: #### C BC ####[facility] Jxxpbbmjzt616[address] [place], [place] [address]Dr. Marlin Gonzalez Platelet mean volume (Bld) [Entitic vol] 9.8 fL Normal 9.5-13.[address] [facility] Comment on above: Performed By: #### C BC ####[facility] Kycgdksufv4642 [place] [address]Dr. Marlin Gonzalez PLT 183 103/ul Normal 150-450 [facility] Comment on above: Performed By: #### C BC ####[facility] Qryyatglkh6213 [place] [address]Dr. Marlin Gonzalez RBC 2.89 106/ul Critically low 4.20-5.40 [facility] Comment on above: Performed By: #### C BC ####[facility] Sgydjbiare2840 [place] [address]Dr. Marlin Gonzalez WBC 6.7 103/ul Normal 4.0-11.0 [facility] Comment on above: Performed By: #### C BC ####[facility] Kalpymgndn[address] [place], [place] [address]Dr. Marlin Gonzalez CULTURE STERILE BODY FLUIDon 11-08-2021 CULTURE STERILE BODY FLUID Culture Observations: NO GROWTH AT 72 HRS Normal [facility] Comment on above: Performed By: #### S TBFCX ####[facility] Zvhjexlmra0651 [place] [address]Dr. Katherinearmando Gonzalez CYTOLOGYon 11-08-2021 SENT TO REF LAB 11/08/[address] [facility] Comment on above: Performed By: #### C YTO ####[facility] Rpninupflp8283 [place] [address]Dr. Marlin Gonzalez GRAM STAINon 11-08-2021 COMMENTS NO ORGANISMS OBSERVED Normal [facility] Comment on above: Performed By: #### G STAIN ####[facility] [address]ohgkxuup[address] [place], [place] [address]Dr. Marlin Gonzalez DIPHTHEROIDS Normal [facility] Comment on above: Performed By: #### G STAIN ####[facility] Xrymhfvmet[address] [place], [place] [address]Dr. Marlin Gonzalez EPITHELIALS Normal [facility] Comment on above: Performed By: #### G STAIN ####[facility] Lfcvxcopdd7670 [place] [address]Dr. Marlin Gonzalez FUNGAL ELEMENTS Normal [facility] Comment on above: Performed By: #### G STAIN ####[facility] [address]wkkbac[address] [place], [place] [address]Dr. Marlin Gonzalez GRAM NEG BACILLI Normal [facility] Comment on above: Performed By: #### G STAIN ####[facility] Rkeqiebxgd[address] [place], [place] [address]Dr. Marlin Gonzalez GRAM NEG DIPPLOCOCCI Normal [facility] Comment on above: Performed By: #### G STAIN ####[facility] Wndcifhnpv4258 [place] [address]Dr. Marlin Gonzalez GRAM POS BACILLI Normal [facility] Comment on above: Performed By: #### G STAIN ####[facility] Wcqaotftfg3044 [place] [address]Dr. Marlin Gonzalez GRAM POSITIVE COCCI Normal [facility] Comment on above: Performed By: #### G STAIN ####[facility] Qzhvvblqol3460 [place] [address]Dr. Marlin Gonzalez GRAM STAIN SOURCE THORACENTESIS FLUID Normal [facility] Comment on above: Performed By: #### G STAIN ####[facility] Gqrsdvaqup1517 [place] [address]Dr. Marlin Gonzalez GS_DIPTH Normal [facility] Comment on above: Performed By: #### G STAIN ####[facility] Ydpmhkyxaj9045 [place] [address]Dr. Marlin Gonzalze WBC RARE Normal [facility] Comment on above: Performed By: #### G STAIN ####[facility] Panufnsgpe1314 [place] [address]Dr. Marlin Gonzalez POINT OF CARE GLUCOSEon 10-12 Glucose [Mass/Vol] 107 mg/dL Critically high 74-106 [facility] Comment on above: Performed By: #### P OCGLUC ####[facility] Ewgupaeehn18[address] [place], [place] [address]Dr. Marlin Gonzalez Glucose [Mass/Vol] 86 mg/dL Normal 74-[address] [facility] Comment on above: Performed By: #### P OCGLUC ####[facility] Zmleqfkelo9033 [place] [address]Dr. Marlin Gonzalez Glucose [Mass/Vol] 260 mg/dL Critically high 74-106 [facility] Comment on above: Performed By: #### P OCGLUC ####[facility] Mlnlkbwyjl4216 [place] [address]Dr. Marlin Gonzalez Glucose [Mass/Vol] 121 mg/dL Critically high 74-106 [facility] Comment on above: Performed By: #### P OCGLUC ####[facility] Hsoxukyomx6997 [place] [address]Dr. Marlin Gonazlez Glucose [Mass/Vol] 179 mg/dL Critically high 74-106 [facility] Comment on above: Performed By: #### P OCGLUC ####[facility] Fizzmoikqc02[address] [place], [place] [address]Dr. Marlin Gonzalez PROF CHEM 8 (BAS METB)on Anion gap [Moles/Vol] 12.3 mmol/L Normal [facility] Comment on above: Performed By: #### B MP ####[facility] Cyovfsiree675[address] [place], [place] [address]Dr. Marlin Gonzalez Calcium [Mass/Vol] 8.1 mg/dL Critically low 8.5-10.1 [facility] Comment on above: Performed By: #### B MP ####[facility] Tjsmlbvaui8532[address] [place], [place] [address]Dr. Marlin Gonzalez Chloride [Moles/Vol] 100 mmol/L Normal 98-[address] [facility] Comment on above: Performed By: #### B MP ####[facility] Yoiqmlwvsw497[address] [place], [place] [address]Dr. Marlin Gonzalez CO2 [Moles/Vol] 27.1 mmol/L Normal 21.0-32.[address] [facility] Comment on above: Performed By: #### B MP ####[facility] Cmchjemfux54[address] [place], [place] [address]Dr. Marlin Gonzalez Creatinine [Mass/Vol] 3.21 mg/dL Critically high 0.55-1.[address] [facility] Comment on above: Performed By: #### B MP ####[facility] Ueqvfwxlwu78[address] [place], [place] [address]Dr. Marlin Gonzalez EGFR-AF ANDORRAN 17 mL/min/1.73m2 Critically low >=[address] [facility] Comment on above: Performed By: #### B MP ####[facility] Xqggoxojfl437[address] [place], [place] [address]Dr. Marlin Gonzalez EGFR-NON AF ANDORRAN 14 mL/min/1.73m2 Critically low >=[address] [facility] Comment on above: Performed By: #### B MP ####[facility] Parwvrqexm5616[address] [place], [place] [address]Dr. Marlin Gonzalez Glucose [Mass/Vol] 66 mg/dL Critically low 74-106 [facility] Comment on above: Performed By: #### B MP ####[facility] Euksdmqvws055[address] [place], [place] [address]Dr. Marlin Gonzalez Potassium [Moles/Vol] 3.4 mmol/L Critically low 3.5-5.1 [facility] Comment on above: Performed By: #### B MP ####[facility] Ivoaexloml9047 [place] [address]Dr. Katherinearmando Carlos Sodium [Moles/Vol] 136 mmol/L Normal 136-145 [facility] Comment on above: Performed By: #### B MP ####[facility] Twbjflhakd5625[address] [place], [place] [address]Dr. Marlin Carlos Urea nitrogen [Mass/Vol] 96.0 mg/dL Critically high 7.0-18.0 [facility] Comment on above: Performed By: #### B MP ####[facility] Udhctpemid248[address] [place], [place] [address]Dr. Marlin Gonzalez Urea nitrogen/Creatinine [Mass ratio] 29.9 mg/mg Normal [facility] Comment on above: Performed By: #### B MP ####[facility] Bnjaqnwghb55[address] [place], [place] [address]Dr. Marlin Carlos XR CHEST 1 Von 11-08-2021 XR CHEST 1 V Normal [facility] XR CHEST 1 V Normal [facility] CBC W MANUAL DIFFon 11-08-19 22 ATYPICAL LYMPH # Normal [facility] Comment on above: Performed By: #### C GLORIA ####[facility] Vyhchklcxn1375 [place] [address]Dr. Marlin Gonzalez ATYPICAL LYMPH % Normal [facility] Comment on above: Performed By: #### C GLORIA ####[facility] Fsejmitwci7[address] [place], [place] [address]Dr. Marlin Gonzalez BAND # 0.0 103/ul Normal 0.0-0.3 [facility] Comment on above: Performed By: #### C GLORIA ####[facility] Weztevhddo694[address] [place], [place] [address]Dr. Marlin Gonzalez BAND % 0 % Normal 0-5 [facility] Comment on above: Performed By: #### C GLORIA ####[facility] Zytpomxrti599[address] [place], [place] [address]Dr. Marlin Gonzalez BASOM # 0.08 103/ul Normal 0.00-0.10 [facility] Comment on above: Performed By: #### C BCMAN ####[facility] Pqnnblmvvk3648 [place] [address]Dr. Marlin Gonzalez BASOM % 1.0 % Normal 0.2-2.0 [facility] Comment on above: Performed By: #### C BCMAN ####[facility] Ijdshbogok3966 [place] [address]Dr. Marlin Gonzalez BLAST # Normal [facility] Comment on above: Performed By: #### C BCMARY ####[facility] Ydwfsbvcic304[address] [place], [place] [address]Dr. Marlin Gonzalez BLAST % Normal [facility] Comment on above: Performed By: #### C BCMARY ####[facility] Hoevcwvcpr327[address] [place], [place] [address]Dr. Marlin Gonzalez CORRECTED WBC Normal 4.0-11.0 [facility] Comment on above: Performed By: #### C BCMARY ####[facility] Gxeskzgmis73[address] [place], [place] [address]Dr. Marlin Gonzalez EOS # 0.50 103/ul Normal 0.00-0.70 [facility] Comment on above: Performed By: #### C BCMARY ####[facility] Yezmyydbmb[address] [place], [place] [address]Dr. Marlin Gonzalez EOS% 6.0 % Normal 0.9-7.0 [facility] Comment on above: Performed By: #### C BCMAN ####[facility] Ovhsoowpva[address] [place], [place] [address]Dr. Marlin Gonzalez HCT 25.7 % Critically low 36.0-48.0 [facility] Comment on above: Performed By: #### C BCMAN ####[facility] Rgxqhkqqiz8[address] [place], [place] [address]Dr. Marlin Gonzalez HGB 8.1 g/dl Critically low 12.0-16.0 [facility] Comment on above: Performed By: #### C BCMAN ####[facility] Mwtemtpwbb8352 [place], [place] [address]Tz. Marlin Gonzalez LYMPHM # 0.17 103/ul Critically low 1.20-3.80 [facility] Comment on above: Performed By: #### C GLORIA ####[facility] Ftawzekpzi2465 [place], [place] [address]Gu. Marlin Gonzalez LYMPHM% 2.0 % Critically low 20.5-60.0 [facility] Comment on above: Performed By: #### C GLORIA ####[facility] Zzjjibwcet0623 [place] [id number]. Marlin Gonzalez MCH 29.9 pg Normal 26.7-34.0 [facility] Comment on above: Performed By: #### C GLORIA ####[facility] Vdfnpexois6819 [place] [id number]. Marlin Gonzalez MCHC 31.5 g/dl Normal 29.9-35.2 [facility] Comment on above: Performed By: #### Tara CASTRO ####[facility] Gdtxaermnn4393 [place] [phone]. Marlin Gonzalez MCV 94.8 fL Normal 81.0-99.0 [facility] Comment on above: Performed By: #### Tara CASTRO ####[facility] Ubconsbtnd8988 [place] [id number]. Marlin Gonzalez METAMYELOCYTE # Normal [facility] Comment on above: Performed By: #### Tara CASTRO ####[facility] Vwtlbrwsoy0873 [place] [phone]. Marlin Gonzalez METAMYELOCYTE % Normal [facility] Comment on above: Performed By: #### C GLORIA ####[facility] Hmuvaypqip7057 [place] [phone]. Marlin Gonzalez MONOM# 0.08 103/ul Critically low 0.30-0.80 [facility] Comment on above: Performed By: #### C GLORIA ####[facility] Qoqxrpipux1452 [place] [phone]. Marlin Gonzalez MONOM% 1.0 % Critically low 1.7-12.0 [facility] Comment on above: Performed By: #### C GLORIA ####[facility] Nwoeghxhed4118 [place] [phone]. Marlin Gonzalez MPV 9.5 fL Normal 9.5-13.5 [facility] Comment on above: Performed By: #### C GLORIA ####[facility] Waoevtaqxl4493 [place], [place] [address]Yu. Marlin Gonzalez MYELOCYTE # Normal [facility] Comment on above: Performed By: #### C GLORIA ####[facility] Jemywyjiyk9939 [place], [place] [address]Di. Marlin Gonzalez MYELOCYTE % Normal [facility] Comment on above: Performed By: #### C GLORIA ####[facility] Trpbuvoxwo1594 [place] [phone]. Marlin Gonzalez NRBC Normal [facility] Comment on above: Performed By: #### Tara CASTRO ####[facility] Wbcmplhiil8081 [place] [phone]. Marlin Gonzalez PLT 177 103/ul Normal 150-450 [facility] Comment on above: Performed By: #### Tara CASTRO ####[facility] Prwqnpeafw4322 [place] [phone]. Marlin Gonzalez RBC 2.71 106/ul Critically low 4.20-5.[address] [facility] Comment on above: Performed By: #### Tara CASTRO ####[facility] Jlwofwezxk5912 [place] [phone]. Marlin Gonzalez RDW 14.6 % Normal 11.0-15.0 [facility] Comment on above: Performed By: #### C GLORIA ####[facility] Veouqeyjhp6075 [place] [phone]. Marlin Gonzalez SEG # 7.47 103/ul Critically high 1.40-6.50 [facility] Comment on above: Performed By: #### C GLORIA ####[facility] Ilmixwkjxa3204 [place] [phone]. Marlin Gonzalez SEG % 90.0 % Critically high 43.0-75.0 [facility] Comment on above: Performed By: #### C BCMAN ####[facility] Cbuqoyghes2235 [place] [phone]. Marlin Gonzalez WBC 8.3 103/ul Normal 4.0-11.0 [facility] Comment on above: Performed By: #### C BCMAN ####[facility] Lajoyxsdpj6410 [place] [phone]. Marlin Gonzalez CELL COUNT BODY FLUIDon 10-12 Clarity, Serous Hazy Abnormal Clear [facility] Comment on above: Performed By: #### C CBFS ####[facility] Ioexgzsxhy[address] [place], [place] [phone]. Marlin Gonzalez Color, Serous Yellow Normal [facility] Comment on above: Result Comment: Vale rless to Pale Yellow/Straw Performed By: #### C CBFS ####[facility] [address]ywyqunhsd[address] [place], [place] [phone]. Marlin Gonzalez Comments: Normal [facility] Comment on above: Performed By: #### C CBFS ####[facility] Aknfhboztp[address] [place], [place] [phone]. Marlin Gonzalez Eosinophils/100 WBC (Bld) 1 % Normal Not Estab. [facility] Comment on above: Performed By: #### C CBFS ####[facility] Rhyxsihnua[address] [place], [place] [address]Dr. Marlin Gonzalez Lining Cells, Serous Normal [facility] Comment on above: Performed By: #### C CBFS ####[facility] U[address]umyimlpb[address] [place], [place] [phone]. Marlin Gonzalez Lymphocytes/100 WBC (Bld) 0 % Normal Not Estab. [facility] Comment on above: Performed By: #### C CBFS ####[facility] K[address]ysgsoehi[address] [place], [place] [address]Dr. Katherinearmando Gonzalez Macrophages, Serous 41 % Normal Not Estab. [facility] Comment on above: Performed By: #### C CBFS ####[facility] Vtpbbazrtr[address] [place], [place] [phone]. Yilan Gonzalez Nucleated Cells, Serous 2536 /mm3 Critically high 0-[address] [facility] Comment on above: Result Comment: Pleu ral Fluid, with <1000 Nucleated cells/uL has been associated with transudates while >1000 uL may be seen in exudates. Performed By: #### C CBFS ####[facility] Ltrewmpwnh6940 [place] [phone]. Marlin Gonzalez Polys, Serous 58 % Critically high 0-[address] [facility] Comment on above: Performed By: #### C CBFS ####[facility] Ewqbanelxe1885 [place] [phone]. Marlin Gonzalez RBC (Bld) [#/Vol] 0.002 10*6/uL Normal Not Estab. [facility] Comment on above: Performed By: #### C CBFS ####[facility] Czkmpeqtyz2303 [place] [address]Dr. Marlin Gonzalez POINT OF CARE GLUCOSEon 10-12 Glucose [Mass/Vol] 180 mg/dL Critically high -106 [facility] Comment on above: Performed By: #### P OCGLUC ####[facility] Dovkatebef9203 [place] [address]Dr. Marlin Gonzalez Glucose [Mass/Vol] 129 mg/dL Critically high -106 [facility] Comment on above: Performed By: #### P OCGLUC ####[facility] Kistrfbsmi8288 [place] [address]Dr. Marlin Gonzalez Glucose [Mass/Vol] 194 mg/dL Critically high -106 [facility] Comment on above: Performed By: #### P OCGLUC ####[facility] Oipmgfcaju4283 [place] [address]Dr. Marlin Gonzalez Glucose [Mass/Vol] 164 mg/dL Critically high -106 [facility] Comment on above: Performed By: #### P OCGLUC ####[facility] Rskqzcnmys4908 [place] [address]Dr. Marlin Gonzalez Glucose [Mass/Vol] 89 mg/dL Normal 74-[address] [facility] Comment on above: Performed By: #### P OCGLUC ####[facility] Ufpgesexip7707 [place] [phone]. Marlin Gonzalez Glucose [Mass/Vol] 56 mg/dL Critically low 74-106 [facility] Comment on above: Performed By: #### P OCGLUC ####[facility] Iibsxfrnsc95[address] [place] [address]Dr. Marlin Carlos PROF CHEM 8 (BAS METB)on Anion gap [Moles/Vol] 13.9 mmol/L Normal [facility] Comment on above: Performed By: #### B MP ####[facility] Zgqxwfoqtg5746 [place] [address]Dr. Marlin Gonzalez Calcium [Mass/Vol] 8.0 mg/dL Critically low 8.5-10.1 [facility] Comment on above: Performed By: #### B MP ####[facility] Oueehophup[address] [place], [place] [address]Dr. Marlin Carlos Chloride [Moles/Vol] 98 mmol/L Normal 98-[address] [facility] Comment on above: Performed By: #### B MP ####[facility] Oqeqqgzpmz[address] [place], [place] [address]Dr. Marlin Carlos CO2 [Moles/Vol] 24.8 mmol/L Normal 21.0-32.[address] [facility] Comment on above: Performed By: #### B MP ####[facility] Acdzcplqcm[address] [place], [place] [address]Dr. Marlin Carlos Creatinine [Mass/Vol] 3.19 mg/dL Critically high 0.55-1.[address] [facility] Comment on above: Performed By: #### B MP ####[facility] Iquwzwqvqo[address] [place], [place] [address]Dr. Marlin Gonzalez EGFR-AF ANDORRAN 17 mL/min/1.73m2 Critically low >=[address] [facility] Comment on above: Performed By: #### B MP ####[facility] Torqpnfadc[address] [place], [place] [address]Dr. Marlin Gonzalez EGFR-NON AF ANDORRAN 14 mL/min/1.73m2 Critically low >=60 [facility] Comment on above: Performed By: #### B MP ####[facility] Ufzzcnkakw94[address] [place] [address]Dr. Marlin Gonzalez Glucose [Mass/Vol] 132 mg/dL Critically high 74-106 T [facility] Comment on above: Performed By: #### B MP ####[facility] Fksixxklar0242 [place] [id number]. Marlin Gonzalez Potassium [Moles/Vol] 3.7 mmol/L Normal 3.5-5.[address] [facility] Comment on above: Performed By: #### B MP ####[facility] Umwiwhogtb[address] [place] [address]Dr. Katherinearmando Carlos Sodium [Moles/Vol] 133 mmol/L Critically low 136-145 [facility] Comment on above: Performed By: #### B MP ####[facility] Eucrhyosur248[address] [place], [place] [address]Dr. Marlin Carlos Urea nitrogen [Mass/Vol] 93.0 mg/dL Critically high 7.0-18.[address] [facility] Comment on above: Performed By: #### B MP ####[facility] Wngovduorm23[address] [place], [place] [address]Dr. Marlin Carlos Urea nitrogen/Creatinine [Mass ratio] 29.2 mg/mg Normal [facility] Comment on above: Performed By: #### B MP ####[facility] Epxakdwawo16[address] [place], [place] [address]Dr. Katherinearmando Carlos XR CHEST 2 Von 11-07-2021 XR CHEST 2 V Normal [facility] XR SHOULDER RT 2V or >on XR SHOULDER RT 2V or > Normal [facility] CBC AUTO DIFFon 11-06-2021 BASO # 0.0 103/ul Normal 0.0-0.[address] [facility] Comment on above: Performed By: #### C BC ####[facility] Qbvskzihof212[address] [place], [place] [address]Dr. Marlin Gonzalez Basophils/100 WBC (Bld) 0.1 % Critically low 0.2-2.[address] [facility] Comment on above: Performed By: #### C BC ####[facility] Wsfjmcjvka3[address] [place] [address]Dr. Marlin Gonzalez EO # 0.1 103/ul Normal 0.0-0.7 [facility] Comment on above: Performed By: #### C BC ####[facility] Ysythibqld1280 [place] [address]Dr. Marlin Gonzalez Eosinophils/100 WBC (Bld) 1.2 % Normal 0.9-7.0 [facility] Comment on above: Performed By: #### C BC ####[facility] Rqakukuljj4060 [place] [address]Dr. Marlin Gonzalez Erythrocyte distribution width (RBC) [Ratio] 14.9 % Normal 11.0-15.0 [facility] Comment on above: Performed By: #### C BC ####[facility] Qmtvaszwrh3[address] [place], [place] [address]Dr. Marlin Gonzalez Hematocrit (Bld) [Volume fraction] 25.3 % Critically low 36.0-48.[address] [facility] Comment on above: Performed By: #### C BC ####[facility] Rvaybhompm327[address] [place], [place] [address]Dr. Marlin Gonzalez Hemoglobin (Bld) [Mass/Vol] 8.0 g/dL Critically low 12.0-16.0 [facility] Comment on above: Performed By: #### C BC ####[facility] Djzzcfteau[address] [place], [place] [address]Dr. Marlin Gonzalez IG # 0.04 10e3/ul Critically high 0.00-0.03 [facility] Comment on above: Performed By: #### C BC ####[facility] Cvtytgkiqp159[address] [place], [place] [address]Dr. Marlin Gonzalez IG % 0.4 % Normal 0.0-0.5 [facility] Comment on above: Performed By: #### C BC ####[facility] Tshkftcntm219[address] [place], [place] [address]Dr. aMrlin Gonzalez LYMPH # 1.2 103/ul Normal 1.2-3.8 [facility] Comment on above: Performed By: #### C BC ####[facility] Iegpbsrxat0642 [place] [phone]. Katherinearmando Gonzalez Lymphocytes/100 WBC (Bld) 12.9 % Critically low 20.5-60.[address] [facility] Comment on above: Performed By: #### C BC ####[facility] Ncsepgdkfa5745 [place] [phone]. Marlin Gonzalez MANUAL DIFF REQ NO Normal [facility] Comment on above: Performed By: #### C BC ####[facility] Lfjlryowcr8683 [place] [phone]. Marlin Gonzalez MCH (RBC) [Entitic mass] 29.9 pg Normal 26.7-34.[address] [facility] Comment on above: Performed By: #### C BC ####[facility] Kldjhuoanw9556 [place] [address]Dr. Marlin Gonzalez MCHC (RBC) [Mass/Vol] 31.6 g/dL Normal 29.9-35.[address] [facility] Comment on above: Performed By: #### C BC ####[facility] Xuwsetvzcu4061 [place] [phone]. Marlin Gonzalez MCV (RBC) [Entitic vol] 94.4 fL Normal 81.0-99.0 [facility] Comment on above: Performed By: #### C BC ####[facility] Rlntctwsxx4713 [place] [address]Dr. Marlin Gonzalez MONO # 0.7 103/ul Normal 0.3-0.[address] [facility] Comment on above: Performed By: #### C BC ####[facility] Tepzsuijsc5416 [place] [phone]. Marlin Gonzalez Monocytes/100 WBC (Bld) 7.4 % Normal 1.7-12.0 [facility] Comment on above: Performed By: #### C BC ####[facility] Mmpmzpuyle2496 [place] [phone] Gonzalez NEUT # 7.1 103/ul Critically high 1.4-6.[address] [facility] Comment on above: Performed By: #### C BC ####[facility] Boeyupabzx4702 [place] [phone]. Marlin Gonzalez Neutrophils/100 WBC (Bld) 78.0 % Critically high 43.0-75.[address] [facility] Comment on above: Performed By: #### C BC ####[facility] Scxgegxoah0406 [place] [phone]. Marlin Gonzalez Platelet mean volume (Bld) [Entitic vol] 10.0 fL Normal 9.5-13.[address] [facility] Comment on above: Performed By: #### C BC ####[facility] Bmbxlcueno6268 [place] [phone]. Marlin Gonzalez PLT 169 103/ul Normal 150-[address] [facility] Comment on above: Performed By: #### C BC ####[facility] Gnezbqkdzx1713 [place] [phone]. Marlin Gonzalez RBC 2.68 106/ul Critically low 4.20-5.[address] [facility] Comment on above: Performed By: #### C BC ####[facility] Iezgiiccol9149 [place] [phone]. Marlin Gonzalez WBC 9.1 103/ul Normal 4.0-11.[address] [facility] Comment on above: Performed By: #### C BC ####[facility] Oynnstuvol3252 [place] [phone]. Marlin Gonzalez GLUCOSE BODYFLUIDon 11-07-19 22 Glucose, Body Fluid 265 mg/dL Normal [facility] Comment on above: Result Comment: ____ : BODY FLUID TYPE : GLUCOSE : : : : : Amniotic Fluid : 45 - 76 : : : : : Bile, Clear : < 5 : : : : : Bile, Yellow : < 8 : : : : : Lymph : 48 - 200 : : : : : Nasal Secretion : < 10 : : : : : Pleural Fluid : 65 - 99 : : : : : Saliva : < 2 : : (Mixed Glands) : : : : : : Sweat : < 7 : : : : : Synovial Fluid : 65 - 99 : : : : : Tears : 76 - 288 : : : : . Jennyfer Murphy V. Reference Intervals for Adults and Children 2008. [facility] edition (V9.1) [employer], [facility]; [place]: August 2008.The reference intervals and other method performance specificationshave not been established for this test. The test result should beintegrated into the clinical context for interpretation. Performed By: #### B FGLUC ####[facility] [address] [place] [address]. Marlin Gonzalez LACTIC ACID DEHYDROGENASE (L D), BODY FLUon 11-06-2021 LD, Body Fluid 278 IU/L Normal [facility] Comment on above: Result Comment: ____ : BODY FLUID TYPE : LDH : : : : : : Nonmalignant: < 60% : : : of the serum LDH : : Ascitic Fluid : Malignant: > 60% : : : of the serum LDH : : : : : Gastric Juice : < 35 : : : : : : Transudate: <200 : : Pleural Fluid : Exudate: >200 : : : : : Saliva : 113 - 609 : : (Mixed Glands) : : : : : : Synovial Fluid : <240 : : : : . Jose Miguel W, Jennyfer V. Reference Intervals for Adults and Children 2008. Ninth Edition (V9.1) [employer], [facility]; [place]: August 2008.The reference intervals and other method performance specificationshave not been established for this test. The test result should beintegrated into the clinical context for interpretation. Performed By: #### L DHBF ####[facility] Ujtaeechnk32[address] [place] [address]Dr. Marlin Gonzalez POINT OF CARE GLUCOSEon 10-12 Glucose [Mass/Vol] 165 mg/dL Critically high 74-106 [facility] Comment on above: Performed By: #### P OCGLUC ####[facility] Kxduozxfqm34[address] [place], [place] [address]Dr. Marlin Gonzalez Glucose [Mass/Vol] 150 mg/dL Critically high 74-106 [facility] Comment on above: Performed By: #### P OCGLUC ####[facility] Ersfndubro[address] [place], [place] [address]Dr. Marlin Gonzalez Glucose [Mass/Vol] 209 mg/dL Critically high 74-106 [facility] Comment on above: Performed By: #### P OCGLUC ####[facility] Myzhzagzso018[address] [place], [place] [address]Dr. Marlin Gonzalez PROF CHEM 8 (BAS METB)on Anion gap [Moles/Vol] 16.0 mmol/L Normal [facility] Comment on above: Performed By: #### B MP ####[facility] Ctviompmdq[address] [place], [place] [address]Dr. Marlin Gonzalez Calcium [Mass/Vol] 8.3 mg/dL Critically low 8.5-10.1 [facility] Comment on above: Performed By: #### B MP ####[facility] Synjnxnfaw069[address] [place], [place] [address]Dr. Marlin Gonzalez Chloride [Moles/Vol] 97 mmol/L Critically low 98-[address] [facility] Comment on above: Performed By: #### B MP ####[facility] Rkrgjxeksf7198 [place] [phone]. Marlin Gonzalez CO2 [Moles/Vol] 23.8 mmol/L Normal 21.0-32.[address] [facility] Comment on above: Performed By: #### B MP ####[facility] Jlqhootcdj6019 [place] [phone]. Marlin Gonzalez Creatinine [Mass/Vol] 3.37 mg/dL Critically high 0.55-1.[address] [facility] Comment on above: Performed By: #### B MP ####[facility] Zlcfnrnfdm3113 [place] [phone]. Marlin Carlos EGFR-AF ANDORRAN 16 mL/min/1.73m2 Critically low >=[address] [facility] Comment on above: Performed By: #### B MP ####[facility] Vylujhruvu64[address] [place], [place] [address]Dr. Katherinearmando Carlos EGFR-NON AF ANDORRAN 13 mL/min/1.73m2 Critically low >=[address] [facility] Comment on above: Performed By: #### B MP ####[facility] Wftnvipvgd8622 [place] [phone]. Marlin Gonzalez Glucose [Mass/Vol] 117 mg/dL Critically high 74-106 T [facility] Comment on above: Performed By: #### B MP ####[facility] Oafvhofiws5192 [place] [phone]. Marlin Carlos Potassium [Moles/Vol] 3.8 mmol/L Normal 3.5-5.[address] [facility] Comment on above: Performed By: #### B MP ####[facility] Ljtndjudrf7018 [place] [address]Dr. Katherinearmando Gonzalez Sodium [Moles/Vol] 133 mmol/L Critically low 136-145 Th [facility] Comment on above: Performed By: #### B MP ####[facility] Ozokwclzlb[address] [place], [place] [address]Dr. Katherinearmando Gonzalez Urea nitrogen [Mass/Vol] 97.0 mg/dL Critically high 7.0-18.[address] [facility] Comment on above: Performed By: #### B MP ####[facility] Roafgtgoyq3764 [place], [place] [address]Ft. Marlin Gonzalez Urea nitrogen/Creatinine [Mass ratio] 28.8 mg/mg [facility] Comment on above: Performed By: #### B MP ####[facility] Urytybqigt1464 [place], [place] [address]Mw. Marlin Gonzalez PROTEIN, TOTAL, BODY FLUIDon 11-06-2021 Protein, Body Fluid 2.8 g/dL Normal [facility] Comment on above: Result Comment: ____ : BODY FLUID TYPE : TOTAL PROTEIN : : : : : Amniotic Fluid : <0.4 : : : : : : Nonmalignant: <3.0 : : Ascitic Fluid : Malignant: >3.0 : : : : : Bile, Clear : <0.9 : : : : : Bile, Yellow : 0.2 - 0.6 : : : : : Lymph : 2.2 - 6.0 : : : : : Human Milk : 1.9 - 2.0 : : : : : Nasal Secretion : 0.1 - 3.5 : : : : : Pancreatic : 0.0 - 0.1 : : Juice : (post stimulation) : : : : : : Transudate: <0.3 : : Pleural Fluid : Exudate: >0.3 : : : : : Saliva : 0.1 - 0.2 : : (Mixed Glands) : : : : : : Synovial Fluid : <2.5 : : : : : Tears : 0.8 - 0.9 : : : : . Houstonia W, Jennyfer V. Reference Intervals for Adults and Children 2007. Ninth Edition (V9.1) [employer], [facility]; [place]: August 2008.The method performance specifications have not been established forthis test in body fluid. The test result should be integrated intothe clinical context for interpretation. Performed By: #### T [facility] ####[address] Marlin Gonzalez TRIGLYCERIDES, FLUIDon 11-06 Triglycerides, Fluid 16 mg/dL Normal Not Estab. [facility] Comment on above: Result Comment: The reference intervals and other method performance specificationshave not been established for this test. The test result should beintegrated into the clinical context for interpretation.The reference interval(s) and other method performance specificationshave not been established for this body fluid. The test result must beintegrated into the clinical context for interpretation. Performed By: #### T RIGFLU ####[facility] Lehcxiswha9927 [place] [phone]. Marlin Gonzalez XR CHEST 1 Von 11-06-2021 XR CHEST 1 V Normal [facility] XR SHOULDER RT 2V or >on XR SHOULDER RT 2V or > Normal [facility] CBC AUTO DIFFon 11-05-2021 BASO # 0.0 103/ul Normal 0.0-0.1 [facility] Comment on above: Performed By: #### C BC ####[facility] Hmugpndlik9887 [place] [phone]. Marlin Gonzalez Basophils/100 WBC (Bld) 0.0 % Critically low 0.2-2.0 [facility] Comment on above: Performed By: #### C BC ####[facility] Uklmffijcx6375 [place] [phone]. Marlin Gonzalez EO # 0.0 103/ul Normal 0.0-0.7 [facility] Comment on above: Performed By: #### C BC ####[facility] Pjaczidibh2300 [place] [phone]. Marlin Gonzalez Eosinophils/100 WBC (Bld) 0.0 % Critically low 0.9-7.0 [facility] Comment on above: Performed By: #### C BC ####[facility] Xaapojjkji2094 [place] [phone]. Marlin Gonzalez Erythrocyte distribution width (RBC) [Ratio] 14.9 % Normal 11.0-15.0 [facility] Comment on above: Performed By: #### C BC ####[facility] Thkkdetrrf1201 [place] [address]Dr. Katherinearmando Gonzalez Hematocrit (Bld) [Volume fraction] 27.6 % Critically low 36.0-48.0 [facility] Comment on above: Performed By: #### C BC ####[facility] Qdcvzqyekg8729 [place] [address]Dr. Marlin Gonzalez Hemoglobin (Bld) [Mass/Vol] 8.9 g/dL Critically low 12.0-16.0 [facility] Comment on above: Performed By: #### C BC ####[facility] Wdzoacgegw3412 [place] [address]Dr. Marlin Gonzalez IG # 0.05 10e3/ul Critically high 0.00-0.[address] [facility] Comment on above: Performed By: #### C BC ####[facility] Rpbfzhodeu43[address] [place], [place] [address]Dr. Marlin Gonzalez IG % 0.7 % Critically high 0.0-0.[address] [facility] Comment on above: Performed By: #### C BC ####[facility] Okwcwavdms201[address] [place], [place] [address]Dr. Marlin Gonzalez LYMPH # 0.5 103/ul Critically low 1.2-3.8 [facility] Comment on above: Performed By: #### C BC ####[facility] Mfgacyybvu007[address] [place], [place] [address]Dr. Marlin Gonzalez Lymphocytes/100 WBC (Bld) 6.0 % Critically low 20.5-60.0 [facility] Comment on above: Performed By: #### C BC ####[facility] Vqnzbkikhi764[address] [place], [place] [address]Dr. Marlin Gonzalez MANUAL DIFF REQ NO Normal [facility] Comment on above: Performed By: #### C BC ####[facility] Etsrengnvd35[address] [place], [place] [address]Dr. Marlin Gonzalez MCH (RBC) [Entitic mass] 30.4 pg Normal 26.7-34.0 [facility] Comment on above: Performed By: #### C BC ####[facility] Zijmbhatuk7348 [place] [phone]. Marlin Gonzalez MCHC (RBC) [Mass/Vol] 32.2 g/dL Normal 29.9-35.[address] [facility] Comment on above: Performed By: #### C BC ####[facility] Tknrvsgisk6202 [place] [phone]. Marlin Gonzalez MCV (RBC) [Entitic vol] 94.2 fL Normal 81.0-99.0 [facility] Comment on above: Performed By: #### C BC ####[facility] Cqjxggfuxz0062 [place] [phone]. Marlin Carlos MONO # 0.4 103/ul Normal 0.3-0.[address] [facility] Comment on above: Performed By: #### C BC ####[facility] Brqufilbcf3072 [place] [address]Dr. Marlin Gonzalez Monocytes/100 WBC (Bld) 5.8 % Normal 1.7-12.0 [facility] Comment on above: Performed By: #### C BC ####[facility] W[address]ogkxgk[address] [place], [place] [phone]. Marlin Gonzalez NEUT # 6.5 103/ul Normal 1.4-6.[address] [facility] Comment on above: Performed By: #### C BC ####[facility] Cjxuyrbwoh5203 [place] [phone]. Marlin Gonzalez Neutrophils/100 WBC (Bld) 87.5 % Critically high 43.0-75.[address] [facility] Comment on above: Performed By: #### C BC ####[facility] Wmmdfmjzmr[address] [place], [place] [phone]. Marlin Carlos Platelet mean volume (Bld) [Entitic vol] 9.9 fL Normal 9.5-13.[address] [facility] Comment on above: Performed By: #### C BC ####[facility] Dcvzgncoaa[address] [place], [place] [phone]. Marlin Gonzalez PLT 175 103/ul Normal 150-450 [facility] Comment on above: Performed By: #### C BC ####[facility] Rtlelbpxke1206 [place] [phone]. Marlin Gonzalez RBC 2.93 106/ul Critically low 4.20-5.40 [facility] Comment on above: Performed By: #### C BC ####[facility] Zjdhcnklzk3667 [place] [phone]. Marlin Gonzalez WBC 7.5 103/ul Normal 4.0-11.0 [facility] Comment on above: Performed By: #### C BC ####[facility] Kivnhmwnhh[address] [place], [place] [phone]. Marlin Gonzalez CULTURE STERILE BODY FLUIDon 11-05-2021 CULTURE STERILE BODY FLUID Culture Observations: NO GROWTH AT 72 HOURS. Normal [facility] Comment on above: Performed By: #### S TBFCX ####[facility] Lfvkpvixyx65[address] [place], [place] [address]Dr. Marlin Gonzalez CYTOLOGYon 11-05-2021 SENT TO REF LAB 11/05/[address] [facility] Comment on above: Performed By: #### C YTO ####[facility] Goqotpmhkc[address] [place], [place] [phone]. Marlin Gonzalez GRAM STAINon 11-05-2021 COMMENTS NO ORGANISMS OBSERVED Normal [facility] Comment on above: Performed By: #### G STAIN ####[facility] Xtmhyvarkj[address] [place], [place] [address]Dr. Marlin Gonzalez DIPHTHEROIDS Normal [facility] Comment on above: Performed By: #### G STAIN ####[facility] Ardwqmfilz[address] [place], [place] [address]Dr. Marlin Gonzalez EPITHELIALS Normal [facility] Comment on above: Performed By: #### G STAIN ####[facility] Wmhexazrvo[address] [place], [place] [address]Dr. Marlin Gonzalez FUNGAL ELEMENTS Normal [facility] Comment on above: Performed By: #### G STAIN ####[facility] Qlnwfehlja775[address] [place], [place] [address]Dr. Marlin Gonzalez GRAM NEG BACILLI Normal [facility] Comment on above: Performed By: #### G STAIN ####[facility] Zyybaddrjm4981 [place] [address]Dr. Marlin Gonzalez GRAM NEG DIPPLOCOCCI Normal [facility] Comment on above: Performed By: #### G STAIN ####[facility] Aeuyojzqiw3661 [place] [address]Dr. Marlin Gonzalez GRAM POS BACILLI Normal [facility] Comment on above: Performed By: #### G STAIN ####[facility] Qydujlwqrx364[address] [place], [place] [address]Dr. Marlin Gonzalez GRAM POSITIVE COCCI Normal [facility] Comment on above: Performed By: #### G STAIN ####[facility] Fiefazjqbk022[address] [place], [place] [address]Dr. Marlin Gonzalez GRAM STAIN SOURCE THORACENTESIS FLUID Normal [facility] Comment on above: Performed By: #### G STAIN ####[facility] Ekvdmxdqkp415[address] [place], [place] [address]Dr. Marlin Gonzalez GS_DIPTH Normal [facility] Comment on above: Performed By: #### G STAIN ####[facility] Jtsaytjohx[address] [place], [place] [address]Dr. Marlin Gonzalez WBC RARE Normal [facility] Comment on above: Performed By: #### G STAIN ####[facility] Dbnopervrg18[address] [place], [place] [address]Dr. Marlin Gonzalez POINT OF CARE GLUCOSEon 10-12 Glucose [Mass/Vol] 150 mg/dL Critically high 74-106 [facility] Comment on above: Performed By: #### P OCGLUC ####[facility] Mrhyliopnz75[address] [place], [place] [address]Dr. Marlin Gonzalez Glucose [Mass/Vol] 145 mg/dL Critically high 74-106 [facility] Comment on above: Performed By: #### P OCGLUC ####[facility] Reoexuaowz[address] [place], [place] [address]Dr. Marlin Gonzalez Glucose [Mass/Vol] 356 mg/dL Critically high 74-106 [facility] Comment on above: Performed By: #### P OCGLUC ####[facility] Xryypgtaki2326 [place] [address]Dr. Marlin Gonzalez Glucose [Mass/Vol] 207 mg/dL Critically high 74-106 T [facility] Comment on above: Performed By: #### P OCGLUC ####[facility] Fgfabaishc[address] [place], [place] [address]Dr. Marlin Gonzalez PROF CHEM 8 (BAS METB)on Anion gap [Moles/Vol] 15.7 mmol/L Normal [facility] Comment on above: Performed By: #### B MP ####[facility] Awsbrrokrg000[address] [place], [place] [address]Dr. Marlin Gonzalez Calcium [Mass/Vol] 8.8 mg/dL Normal 8.5-10.[address] [facility] Comment on above: Performed By: #### B MP ####[facility] Vulgmuszjg6[address] [place], [place] [address]Dr. Marlin Gonzalez Chloride [Moles/Vol] 101 mmol/L Normal 98-[address] [facility] Comment on above: Performed By: #### B MP ####[facility] Idciafnmta[address] [place], [place] [address]Dr. Marlin Carlos CO2 [Moles/Vol] 23.0 mmol/L Normal 21.0-32.[address] [facility] Comment on above: Performed By: #### B MP ####[facility] C[address]mypyt[address] [place], [place] [address]Dr. Marlin Gonzalez Creatinine [Mass/Vol] 3.21 mg/dL Critically high 0.55-1.[address] [facility] Comment on above: Performed By: #### B MP ####[facility] Vwfmobdkkj6[address] [place], [place] [address]Dr. Marlin Gonzalez EGFR-AF ANDORRAN 17 mL/min/1.73m2 Critically low >=60 [facility] Comment on above: Performed By: #### B MP ####[facility] Scnngzgpcd46[address] [place], [place] [address]Dr. Marlin Gonzalez EGFR-NON AF ANDORRAN 14 mL/min/1.73m2 Critically low >=60 [facility] Comment on above: Performed By: #### B MP ####[facility] Pdqwifxwqw6486 [place] [phone]. Katherinearmando Gonzalez Glucose [Mass/Vol] 203 mg/dL Critically high 74-106 [facility] Comment on above: Performed By: #### B MP ####[facility] Exxpnpucct0421 [place] [phone]. Marlin Gonzalez Potassium [Moles/Vol] 3.7 mmol/L Normal 3.5-5.[address] [facility] Comment on above: Performed By: #### B MP ####[facility] Qvwswjuvft18[address] [place], [place] [address]Dr. Marlin Gonzalez Sodium [Moles/Vol] 136 mmol/L Normal 136-[address] [facility] Comment on above: Performed By: #### B MP ####[facility] Lmzroomzow411[address] [place], [place] [address]Dr. Marlin Gonzalez Urea nitrogen [Mass/Vol] 94.0 mg/dL Critically high 7.0-18.[address] [facility] Comment on above: Performed By: #### B MP ####[facility] Qzjtfqrdzc190[address] [place], [place] [address]Dr. Marlin Gonzalez Urea nitrogen/Creatinine [Mass ratio] 29.3 mg/mg Normal [facility] Comment on above: Performed By: #### B MP ####[facility] Uozmsujgrv930[address] [place], [place] [address]Dr. Marlin Gonzalez VANCOMYCIN TROUGHon 11-06-19 22 VANCOMYCIN TROUGH 10.3 ug/ml Normal 5.0-20.[address] [facility] Comment on above: Performed By: #### V ANCT ####[facility] Pdemexggtc0623[address] [place], [place] [address]Dr. Marlin Gonzalez XR CHEST 1 Von 11-05-2021 XR CHEST 1 V Normal [facility] BLOOD GASES BTYon 11-04-2021 02 MODE NASAL CANNULA Normal [facility] Comment on above: Performed By: #### A BG ####[facility] Eigekmmsbo96[address] [place], [place] [address]Dr. Marlin Gonzalez ALLENS TEST Positive Normal [facility] Comment on above: Performed By: #### A BG ####[facility] Qjfkxzznkc5493 [place] [address]Dr. Marlin Gonzalez Base excess Calc (Bld) [Moles/Vol] -0.5000 mmol/L Normal -2.0-2.0 [facility] Comment on above: Performed By: #### A BG ####[facility] Cpecqkxipe39[address] [place], [place] [address]Dr. Marlin Gonzalez BIPAP PRESSURE Normal [facility] Comment on above: Performed By: #### A BG ####[facility] Bkahefisgs974[address] [place], [place] [address]Dr. Marlin oGnzalez CPAP Normal [facility] Comment on above: Performed By: #### A BG ####[facility] Mzzchhzgku297[address] [place], [place] [address]Dr. Marlin Gonzalez FIO2 Normal [facility] Comment on above: Performed By: #### A BG ####[facility] Wykiwydnvk5724[address] [place], [place] [address]Dr. Marlin Gonzalez HCO3 (Bld) [Moles/Vol] 49.8 mmol/L Critically high 22.0-26 .0 [facility] Comment on above: Performed By: #### A BG ####[facility] Ecmhomphxt3417[address] [place], [place] [address]Dr. Marlin Gonzalez LPM Normal [facility] Comment on above: Performed By: #### A BG ####[facility] Hiaduqfkjj23[address] [place], [place] [address]Dr. Marlin Gonzalez MINUTE VOLUME Normal [facility] Comment on above: Performed By: #### A BG ####[facility] Ykwemgsbzl010[address] [place], [place] [address]Dr. Marlin Gonzalez Oxygen (Bld) [Partial pressure] 78.3 mm[Hg] Critically low 80.0-100.0 [facility] Comment on above: Performed By: #### A BG ####[facility] Zyudkcjebz49[address] [place], [place] [address]Dr. Marlin Gonzalez Oxygen saturation in Blood 97.0 % Normal 95.0-100.0 [facility] Comment on above: Performed By: #### A BG ####[facility] Ihpqeudxmd2905 [place] [address]Dr. Marlin Gonzalez PCO2 34.2 mmHg Critically low 35.0-45.0 [facility] Comment on above: Performed By: #### A BG ####[facility] Vhjvoolohk7594 [place] [address]Dr. Marlin Gonzalez PEEP [facility] Comment on above: Performed By: #### A BG ####[facility] Zusyqpkftz5489 [place] [address]Dr. Marlin Gonzalez pH (Bld) 7.446 [pH] Normal 7.350-7.[address] [facility] Comment on above: Performed By: #### A BG ####[facility] Ckessxzbcs4627 [place] [address]Dr. Marlin Gonzalez PIP [facility] Comment on above: Performed By: #### A BG ####[facility] Mhisyddvix[address] [place], [place] [address]Dr. Marlin Gonzalez PS [facility] Comment on above: Performed By: #### A BG ####[facility] Mmwlnqlafo5412[address] [place], [place] [address]Dr. Marlin Gonzalez PUNCTURE SITE RR [facility] Comment on above: Performed By: #### A BG ####[facility] Zoxnjkiniy6461 [place] [address]Dr. Marlin Gonzalez RATE [facility] Comment on above: Performed By: #### A BG ####[facility] Rolaktpyik5015 [place] [address]Dr. Marlin Gonzalez VENT MODE Normal [facility] Comment on above: Performed By: #### A BG ####[facility] Utsjcmyzpc79[address] [place], [place] [address]Dr. Marlin Gonzalez [place] [facility] Comment on above: Performed By: #### A BG ####[facility] Nyscgqxmca187[address] [place], [place] [address]Dr. Marlin Gonzalez CARDIAC JOSSIE ADMITon 09-25-2 022 CK [Catalytic activity/Vol] 43 U/L Normal 26-[address] [facility] Comment on above: Performed By: #### C FLOR ESCOBAR ####[facility] Hnngcclblg3001 [place] [address]Dr. Marlin Gonzalez CK.MB [Mass/Vol] 2.43 ng/mL Normal <=3.[address] [facility] Comment on above: Performed By: #### C FLOR ESCOBAR ####[facility] Pabbmemboa8250 [place] [address]Dr. Marlin Gonzalez HSTROP 37.7 pg/mL Normal 4.0-51.3 [facility] Comment on above: Result Comment: CUT- OFF POINTS HAVE BEEN ESTABLISHED BASED ON THE FOURTH UNIVERSAL DEFINITIONS OF MYOCARDIALINFARCTION. THE UPPER REFERENCE LIMIT (URL) OF TROPONIN, DEFINED THE 99TH PERCENTILE OFcTnI DISTRIBUTION IN A REFERENCE POPULATION, HAS BEEN CONFIRMED THE DECISION THRESHOLDFOR SC DIAGNOSIS. Performed By: #### C FLOR ESCOBAR ####[facility] Zjjtwuqzuk3797 [place] [address]Dr. Marlin Gonzalez GHASSAN 121 ng/mL Critically high 9-[address] [facility] Comment on above: Performed By: #### C FLOR ESCOBAR ####[facility] Pudwxmravn27[address] [place], [place] [address]DrLucia Gonzalez CBC AUTO DIFFon 11-04-2021 BASO # 0.0 103/ul Normal 0.0-0.[address] [facility] Comment on above: Performed By: #### C BC ####[facility] Jocdvdblad7471 [place] [address]DrLucia Gonzalez Basophils/100 WBC (Bld) 0.2 % Normal 0.2-2.0 [facility] Comment on above: Performed By: #### C BC ####[facility] Bryuypnlcv497[address] [place], [place] [address]DrLucia Gonzalez EO # 0.2 103/ul Normal 0.0-0.[address] [facility] Comment on above: Performed By: #### C BC ####[facility] Gbdtkwbljo5488[address] [place], [place] [address]DrLucia Gonzalez Eosinophils/100 WBC (Bld) 2.0 % Normal 0.9-7.0 [facility] Comment on above: Performed By: #### C BC ####[facility] Iqbbzqjmqd6304 [place] [address]Dr. Marlin Gonzalez Erythrocyte distribution width (RBC) [Ratio] 15.1 % Critically high 11.0-15.0 [facility] Comment on above: Performed By: #### C BC ####[facility] Wyytbhbvlm9027[address] [place], [place] [address]Dr. Marlin Gonzalez Hematocrit (Bld) [Volume fraction] 27.3 % Critically low 36.0-48.0 [facility] Comment on above: Performed By: #### C BC ####[facility] Bosyjfhicp3930[address] [place], [place] [address]Dr. Marlin Gonzalez Hemoglobin (Bld) [Mass/Vol] 8.8 g/dL Critically low 12.0-16.0 [facility] Comment on above: Performed By: #### C BC ####[facility] Ufqazfbqnt599[address] [place], [place] [address]Dr. Marlin Gonzalez IG # 0.05 10e3/ul Critically high 0.00-0.03 [facility] Comment on above: Performed By: #### C BC ####[facility] Qhqdzeriik0038[address] [place], [place] [address]Dr. Marlin Gonzalez IG % 0.5 % Normal 0.0-0.5 [facility] Comment on above: Performed By: #### C BC ####[facility] Udtmwfnimp190[address] [place], [place] [address]Dr. Marlin Gonzalez LYMPH # 1.2 103/ul Normal 1.2-3.8 [facility] Comment on above: Performed By: #### C BC ####[facility] Zdwfnahnaz295[address] [place], [place] [address]Dr. Marlin Gonzalez Lymphocytes/100 WBC (Bld) 10.9 % Critically low 20.5-60.0 [facility] Comment on above: Performed By: #### C BC ####[facility] Dbvexxucwq6166 [place] [address]Dr. Marlin Gonzalez MANUAL DIFF REQ NO Normal [facility] Comment on above: Performed By: #### C BC ####[facility] Vzxnmitqfw2364 [place] [address]Dr. Marlin Gonzalez MCH (RBC) [Entitic mass] 30.6 pg Normal 26.7-34.[address] [facility] Comment on above: Performed By: #### C BC ####[facility] Obcnngkrwc649[address] [place], [place] [address]Dr. Marlin Carlos MCHC (RBC) [Mass/Vol] 32.2 g/dL Normal 29.9-35.[address] [facility] Comment on above: Performed By: #### C BC ####[facility] Ccgftrheiu2632[address] [place], [place] [address]Dr. Marlin Carlos MCV (RBC) [Entitic vol] 94.8 fL Normal 81.0-99.0 [facility] Comment on above: Performed By: #### C BC ####[facility] Wmslfytjhh3867[address] [place], [place] [address]Dr. Katherinearmando Gonzalez MONO # 1.2 103/ul Critically high 0.3-0.[address] [facility] Comment on above: Performed By: #### C BC ####[facility] Erqcivncrp9220[address] [place], [place] [address]Dr. Katherinearmando Gonzalez Monocytes/100 WBC (Bld) 11.2 % Normal 1.7-12.0 [facility] Comment on above: Performed By: #### C BC ####[facility] Nfhehobiyv05[address] [place], [place] [address]Dr. Marlin Gonzalez NEUT # 8.0 103/ul Critically high 1.4-6.[address] [facility] Comment on above: Performed By: #### C BC ####[facility] Wapavvvemj560[address] [place], [place] [address]Dr. Marlin Gonzalez Neutrophils/100 WBC (Bld) 75.2 % Critically high 43.0-75.[address] [facility] Comment on above: Performed By: #### C BC ####[facility] Isdfosibow7678 [place], [place] [address]No. Marlin Gonzalez Platelet mean volume (Bld) [Entitic vol] 10.4 fL Normal 9.5-13.5 [facility] Comment on above: Performed By: #### C BC ####[facility] Sfgaaygvjz9815 [place], [place] [address]Wf. Marlin Gonzalez PLT 172 103/ul Normal 150-450 [facility] Comment on above: Performed By: #### C BC ####[facility] Oljemuqcvt4708 [place], [place] [address]Jx. Marlin Gonzalez RBC 2.88 106/ul Critically low 4.20-5.40 [facility] Comment on above: Performed By: #### C BC ####[facility] Dpegwsints9998 [place] [phone]. Marlin Gonzalez WBC 10.6 103/ul Normal 4.0-11.0 [facility] Comment on above: Performed By: #### C BC ####[facility] Tkimmvcete9981 [place] [phone]. Marlin Gonzalez CT CHEST WO CONon 11-04-2021 CT CHEST WO CON Normal [facility] Covid-19 PCR ([facility])on 10-12 SARS-CoV-2 (COVID-19) RNA [place]+probe Ql (Unsp spec) Not detected Normal NOT DETECTED [facility] Comment on above: Result Comment: When diagnostic testing is negative, the possibility of a false negative should be considered inthe context of a patient's recent exposures and the presence of clinical signs and symptomsconsistent with SARS-CoV-2.This test is not yet approved or cleared by the [place] FDA. When there are no FDA-approved or cleared tests available, and other criteria are met, FDA can make tests available under an emergency access mechanism called an Emergency Use Authorization (EUA). The EUA for this test is supported by the Registered Health Nurse of Health and Human Service's declaration that circumstances exist to justify the emergency use of in vitro diagnostics for the detection and/or diagnosis of the virus that causes COVID-19. This EUA will remain in effect for the duration of the COVID-19 declaration justifying emergency of IVDs, unless it is terminated or revoked by the FDA (after which the test may no longer be used). Performed By: #### C VDTB ####[facility] Dtaqwdfetj[address] [place], [place] [address]Dr. Marlin Carlos ER URINE PROFILEon 2 Bilirubin Ql (U) Negative Normal NEGATIVE [facility] Comment on above: Performed By: #### El CHESTER UMICRO ####[facility] Gnildsmcjz434[address] [place], [place] [address]Dr. Marlin Gonzalez Clarity (U) CLEAR Normal CLEAR [facility] Comment on above: Performed By: #### STEPAN VAZQUEZICRO ####[facility] Ubrgyizrax050[address] [place], [place] [address]Dr. Marlin Gonzalez Color (U) LT. YELLOW Normal YELLOW [facility] Comment on above: Performed By: #### KANA VAZQUEZRO ####[facility] Rwmbefllyv[address] [place], [place] [address]Dr. Marlin Gonzalez ERUAHD A micrscopic examina tion will be performed if indicated. Normal [facility] Comment on above: Performed By: #### STEPAN VAZQUEZICRO ####[facility] Fjjjbxibft179[address] [place], [place] [address]Dr. Marlin Gonzalez Glucose Ql (U) Negative Normal NEGATIVE [facility] Comment on above: Performed By: #### STEPAN VAZQUEZICRO ####[facility] Fsboyqpkga644[address] [place], [place] [address]Dr. Marlin Gonzalez Hemoglobin Ql (U) Negative Normal NEGATIVE [facility] Comment on above: Performed By: #### El CHESTER UMICRO ####[facility] Gsrjrjybwt9[address] [place], [place] [address]Dr. Marlin Gonzalez Ketones Ql (U) Negative Normal NEGATIVE [facility] Comment on above: Performed By: #### KANA VAZQUEZRO ####[facility] Jfruyngpzn12[address] [place], [place] [address]Dr. Marlin Gonzalez LEUKOCYTES Negative Normal NEGATIVE [facility] Comment on above: Performed By: #### E RUR, UMICRO ####[facility] Jvfegpjydu6933 [place] [address]Dr. Marlin Gonzalez Nitrite Ql (U) Negative Normal NEGATIVE [facility] Comment on above: Performed By: #### El CHESTER UMICRO ####[facility] Qsshttjgsv8493 [place] [address]Dr. Marlin Gonzalez pH (U) 6.0 [pH] Normal 5-[address] [facility] Comment on above: Performed By: #### El CHESTER UMICRO ####[facility] Jzycrjtlpo2405 [place] [address]Dr. Marlin Gonzalez Protein (U) [Mass/Vol] 100 mg/dL Abnormal NEGAT SHEA/ TRACE [facility] Comment on above: Performed By: #### El CHESTER UMICRO ####[facility] Bkzlrbpqxg5594 [place] [address]Dr. Marlin Gonzalez SPEC GRAVITY 1.010 Normal 1.005-<=1.[address] [facility] Comment on above: Performed By: #### El CHESTER UMICRO ####[facility] Pclbywomsb[address] [place], [place] [address]Dr. Marlin Gonzalez UR MICRO IND INDICATED Normal [facility] Comment on above: Performed By: #### El CHESTER UMICRO ####[facility] Kpspqlpdmy5901 [place] [address]Dr. Marlin Gonzalez Urobilinogen Qn (U) 0.2 {Ryan'U}/dL Normal 0.2 - 1. [address] [facility] Comment on above: Performed By: #### El CHESTER UMICRO ####[facility] Plzvtihjqf033[address] [place], [place] [address]Dr. Marlin Gonzalez POINT OF CARE GLUCOSEon 10-12 Glucose [Mass/Vol] 165 mg/dL Critically high 74-106 [facility] Comment on above: Performed By: #### P OCGLUC ####[facility] Vffqloojpo98[address] [place], [place] [address]Dr. Marlin Gonzalez PROF 14(COMP METB)on 022 Albumin [Mass/Vol] 2.9 g/dL Critically low 3.4-5.0 [facility] Comment on above: Performed By: #### C SHAWN, FLOR ####[facility] Idoffrmqme8378 [place] [address]Dr. Marlin Gonzalez Albumin/Globulin [Mass ratio] 0.9 {ratio} Normal [facility] Comment on above: Performed By: #### C SHAWN, FLOR ####[facility] Xclermoklh7030 [place] [address]Dr. Marlin Gonzalez ALP [Catalytic activity/Vol] 118 U/L Critically high 46-[address] [facility] Comment on above: Performed By: #### C FLOR ESCOBAR ####[facility] Jchdcmypsc9199[address] [place], [place] [address]Dr. Marlin Gonzalez ALT [Catalytic activity/Vol] 49 U/L Normal 14-[address] [facility] Comment on above: Performed By: #### C FLOR ESCOBAR ####[facility] Mwetbmwdxr8187 [place] [address]Dr. Marlin Gonzalez Anion gap [Moles/Vol] 12.3 mmol/L Normal [facility] Comment on above: Performed By: #### C FLOR ESCOBAR ####[facility] Yhvommuqti593[address] [place], [place] [address]Dr. Marlin Gonzalez AST [Catalytic activity/Vol] 28 U/L Normal 15-[address] [facility] Comment on above: Performed By: #### C FLOR ESCOBAR ####[facility] Ffqznrtjxb8790 [place] [address]Dr. Marlin Gonzalez Bilirubin [Mass/Vol] 0.4 mg/dL Normal 0.2-1.[address] [facility] Comment on above: Performed By: #### FLOR Pacheco MP ####[facility] Iuotepqckd190[address] [place], [place] [address]Dr. Marlin Gonzalez Calcium [Mass/Vol] 8.7 mg/dL Normal 8.5-10.[address] [facility] Comment on above: Performed By: #### C FLOR ESOCBAR ####[facility] Ukqexthidj7177 [place] [address]Dr. Marlin Gonzalez Chloride [Moles/Vol] 98 mmol/L Normal 98-107 [facility] Comment on above: Performed By: #### C SHAWN, CMADM ####[facility] Scnvaxgqte7849 [place] [address]Dr. Marlin Gonzalez CO2 [Moles/Vol] 26.9 mmol/L Normal 21.0-32.[address] [facility] Comment on above: Performed By: #### C SHAWN, CMADM ####[facility] Bgjwwfjymo5325 [place] [address]Dr. Marlin Carlos Creatinine [Mass/Vol] 3.37 mg/dL Critically high 0.55-1.[address] [facility] Comment on above: Performed By: #### C SHAWN, CMADM ####[facility] Jrdlpjnmaw3438[address] [place], [place] [address]Dr. Katherinearmando Gonzalez EGFR-AF ANDORRAN 16 mL/min/1.73m2 Critically low >=[address] [facility] Comment on above: Performed By: #### C SHAWN, CMADM ####[facility] Tokfsdzjrk1025[address] [place], [place] [address]Dr. Marlin Carlos EGFR-NON AF ANDORRAN 13 mL/min/1.73m2 Critically low >=[address] [facility] Comment on above: Performed By: #### C SHAWN, CMADM ####[facility] Pmrpdbaydw20[address] [place], [place] [address]Dr. Katherinearmando Gonzalez Globulin (S) [Mass/Vol] 3.4 g/dL Normal [facility] Comment on above: Performed By: #### C SHAWN, CMADM ####[facility] Gdldiqngbr2016 [place] [address]Dr. Katherinearmando Carlos Glucose [Mass/Vol] 144 mg/dL Critically high 74-106 [facility] Comment on above: Performed By: #### C SHAWN, CMADM ####[facility] Jpdzdczlqw7814[address] [place], [place] [address]Dr. Marlin Gonzalez Potassium [Moles/Vol] 4.2 mmol/L Normal 3.5-5.1 [facility] Comment on above: Performed By: #### C SHAWN, CMADM ####[facility] Cewugvoifq8219 [place] [address]Dr. Marlin Gonzalez Protein [Mass/Vol] 6.3 g/dL Critically low 6.4-8.2 [facility] Comment on above: Performed By: #### C SHAWN, CMADM ####[facility] Erghatfxcm9251 [place] [address]Dr. Marlin Gonzalez Sodium [Moles/Vol] 133 mmol/L Critically low 136-145 [facility] Comment on above: Performed By: #### C SHAWN, CMADM ####[facility] Llngyxjefh6[address] [place], [place] [address]Dr. Marlin Gonzalez Urea nitrogen [Mass/Vol] 95.0 mg/dL Critically high 7.0-18.[address] [facility] Comment on above: Performed By: #### C SHAWN, FLOR ####[facility] Utxavjokwx836[address] [place], [place] [address]Dr. Marlin Gonzalez Urea nitrogen/Creatinine [Mass ratio] 28.2 mg/mg Normal [facility] Comment on above: Performed By: #### C SHAWN, FLOR ####[facility] Kmpnkauqod3129[address] [place], [place] [address]Dr. Katherinearmando Carlos URINE MICROSCOPIC ONLYon BACTERIA NONE SEEN Normal NONE SEEN [facility] Comment on above: Performed By: #### KANA VAZQUEZRO ####[facility] [address]zqepyulur34[address] [place], [place] [address]Dr. Marlin Gonzalez Bacteria identified Cx Nom (U) NOT INDICATED Normal [facility] Comment on above: Performed By: #### El [place] UMICRO ####[facility] Oqqmbkviln036[address] [place], [place] [address]Dr. Marlin Gonzalez CAST NONE SEEN Normal NONE SEEN [facility] Comment on above: Performed By: #### El [place] UMICRO ####[facility] Xoqoxbiypx5646 [place] [address]Dr. Marlin Gonzalez Crystals LM Nom (Urine sed) NONE SEEN Normal NONE SEEN [facility] Comment on above: Performed By: #### El [place] UMICRO ####[facility] Rnhfscvmgb8135 [place] [address]Dr. Marlin Gonzalez Epithelial cells LM Ql (Urine sed) FEW Abnormal NONE SEEN /RARE [facility] Comment on above: Performed By: #### El [place] UMICRO ####[facility] Ojajhriinc3873 [place] [phone]. Marlin Gonzalez MUCOUS NONE SEEN Normal NONE SEEN [facility] Comment on above: Performed By: #### El [place] UMICRO ####[facility] Nmntykppwk2906 [place] [address]Dr. Marlin Gonzalez RBC NONE SEEN Abnormal 0-2 [facility] Comment on above: Performed By: #### KANA VAZQUEZRO ####[facility] Ldczdwkaao[address] [place], [place] [address]Dr. Marlin Gonzalez WBC 0-2 Abnormal NONE SEEN [facility] Comment on above: Performed By: #### KANA VAZQUEZRO ####[facility] Boxwebgela[address] [place], [place] [address]Dr. Marlin Gonzalez XR CHEST 1 Von 11-04-2021 XR CHEST 1 V Normal [facility] CBC AUTO DIFFon 10-21-2021 BASO # 0.0 103/ul Normal 0.0-0.1 [facility] Comment on above: Performed By: #### C BC ####[facility] Kdmxojanhq40[address] [place], [place] [address]Dr. Marlin Gonzalez Basophils/100 WBC (Bld) 0.1 % Critically low 0.2-2.0 [facility] Comment on above: Performed By: #### C BC ####[facility] Bwfxkqlwnz88[address] [place], [place] [address]Dr. Marlin Gonzalez EO # 0.0 103/ul Normal 0.0-0.7 [facility] Comment on above: Performed By: #### C BC ####[facility] Yynuckosjr58[address] [place], [place] [address]Dr. Marlin Gonzalez Eosinophils/100 WBC (Bld) 0.0 % Critically low 0.9-7.0 [facility] Comment on above: Performed By: #### C BC ####[facility] [address] [place], [place] [address]Dr. Marlin Gonzalez Erythrocyte distribution width (RBC) [Ratio] 14.0 % Normal 11.0-15.[address] [facility] Comment on above: Performed By: #### C BC ####[facility] Ndtdmxsxed418[address] [place], [place] [address]DrLucia Gonzalez Hematocrit (Bld) [Volume fraction] 27.1 % Critically low 36.0-48.0 [facility] Comment on above: Performed By: #### C BC ####[facility] Cfagtawqwh2935[address] [place], [place] [address]DrLucia Gonzalez Hemoglobin (Bld) [Mass/Vol] 8.7 g/dL Critically low 12.0-16.[address] [facility] Comment on above: Performed By: #### C BC ####[facility] Nzwzuwfbnl425[address] [place], [place] [address]Dr. Marlin Gonzalez IG # 0.08 10e3/ul Critically high 0.00-0.[address] [facility] Comment on above: Performed By: #### C BC ####[facility] Kdzozpunhd570[address] [place], [place] [address]DrLuica Gonzalez IG % 0.7 % Critically high 0.0-0.[address] [facility] Comment on above: Performed By: #### C BC ####[facility] Brfdqukyfb2070[address] [place], [place] [address]DrLucia Gonzalez LYMPH # 0.3 103/ul Critically low 1.2-3.8 [facility] Comment on above: Performed By: #### C BC ####[facility] Dgurmkaiem037[address] [place], [place] [address]DrLucia Gonzalez Lymphocytes/100 WBC (Bld) 2.8 % Critically low 20.5-60.0 [facility] Comment on above: Performed By: #### C BC ####[facility] Amkigsmvns348[address] [place], [place] [address]Dr. Marlin Gonzalez MANUAL DIFF REQ NO Normal [facility] Comment on above: Performed By: #### C BC ####[facility] Apdkgxmcoe4736 [place] [address]DrLucia Marlin Carlos MCH (RBC) [Entitic mass] 30.1 pg Normal 26.7-34.[address] [facility] Comment on above: Performed By: #### C BC ####[facility] Eenvdnoybi5316[address] [place], [place] [address]DrLucia Marlin Carlos MCHC (RBC) [Mass/Vol] 32.1 g/dL Normal 29.9-35.[address] [facility] Comment on above: Performed By: #### C BC ####[facility] Xcutjldcay12[address] [place], [place] [address]DrLucia Gonzalez MCV (RBC) [Entitic vol] 93.8 fL Normal 81.0-99.0 [facility] Comment on above: Performed By: #### C BC ####[facility] Kczruanrxf9079[address] [place], [place] [address]DrLucia Gonzalez MONO # 0.4 103/ul Normal 0.3-0.[address] [facility] Comment on above: Performed By: #### C BC ####[facility] Iksgpymrto214[address] [place], [place] [address]DrLucia Gonzalez Monocytes/100 WBC (Bld) 3.5 % Normal 1.7-12.0 [facility] Comment on above: Performed By: #### C BC ####[facility] Pgawnuyaxy034262 [address] [place], [place] [address]DrLucia Gonzalez NEUT # 10.7 103/ul Critically high 1.4-6.[address] [facility] Comment on above: Performed By: #### C BC ####[facility] Ffhbmgispa573062 [address] [place], [place] [address]DrLucia Gonzalez Neutrophils/100 WBC (Bld) 92.9 % Critically high 43.0-75.[address] [facility] Comment on above: Performed By: #### C BC ####[facility] Uowyskhfdy979362 [address] [place], [place] [address]DrLucia Gonzalez Platelet mean volume (Bld) [Entitic vol] 9.5 fL Normal 9.5-13.[address] [facility] Comment on above: Performed By: #### C BC ####[facility] Kkdwwwdrfr0160 [place] [address]Dr. Marlin Gonzalez PLT 231 103/ul Normal 150-450 [facility] Comment on above: Performed By: #### C BC ####[facility] Djcrhxzarb3691 [place] [address]Dr. Marlin Gonzalez RBC 2.89 106/ul Critically low 4.20-5.[address] [facility] Comment on above: Performed By: #### C BC ####[facility] Cgokxtbmjb3628[address] [place], [place] [address]Dr. Marlin Gonzalez WBC 11.6 103/ul Critically high 4.0-11.[address] [facility] Comment on above: Performed By: #### C BC ####[facility] Nsrbwpfbsj6437[address] [place], [place] [address]DrLucia Gonzalez PROF CHEM 8 (BAS METB)on Anion gap [Moles/Vol] 16.2 mmol/L Normal [facility] Comment on above: Performed By: #### B MP ####[facility] Zrifbiysio420962 [address] [place], [place] [address]Dr. Marlin Gonzalez Calcium [Mass/Vol] 8.7 mg/dL Normal 8.5-10.1 [facility] Comment on above: Performed By: #### B MP ####[facility] Ebmexmdung670[address] [place], [place] [address]Dr. Marlin Gonzalez Chloride [Moles/Vol] 95 mmol/L Critically low 98-107 [facility] Comment on above: Performed By: #### B MP ####[facility] Mbxugsrrok1368[address] [place], [place] [address]DrLucia Gonzalez CO2 [Moles/Vol] 24.0 mmol/L Normal 21.0-32.[address] [facility] Comment on above: Performed By: #### B MP ####[facility] Fptvmxxjnr5440[address] [place], [place] [address]Dr. Marlin Gonzalez Creatinine [Mass/Vol] 2.90 mg/dL Critically high 0.55-1.[address] [facility] Comment on above: Performed By: #### B MP ####[facility] Eayderzvnz4852 [place] [address]Dr. Marlin Gonzalez EGFR-AF ANDORRAN 19 mL/min/1.73m2 Critically low >=[address] [facility] Comment on above: Performed By: #### B MP ####[facility] Kwslnxqfxt0604 [place] [address]Dr. Marlin Carlos EGFR-NON AF ANDORRAN 16 mL/min/1.73m2 Critically low >=[address] [facility] Comment on above: Performed By: #### B MP ####[facility] Dbtqzkoqiq8244 [place] [address]Dr. Marlin Gonzalez Glucose [Mass/Vol] 240 mg/dL Critically high 74-106 [facility] Comment on above: Performed By: #### B MP ####[facility] Nztueonvpu2247 [place] [address]Dr. Marlin Gonzalez Potassium [Moles/Vol] 4.2 mmol/L Normal 3.5-5.[address] [facility] Comment on above: Performed By: #### B MP ####[facility] Nvmenttkuf5230[address] [place], [place] [address]Dr. Marlin Gonzalez Sodium [Moles/Vol] 131 mmol/L Critically low 136-145 [facility] Comment on above: Performed By: #### B MP ####[facility] Cjarmmskns9577 [place] [address]Dr. Marlin Gonzalez Urea nitrogen [Mass/Vol] 100.0 mg/dL Critically high 7.0-18.[address] [facility] Comment on above: Performed By: #### B MP ####[facility] Keyjemiubb375462 [address] [place], [place] [address]Dr. Marlin Gonzalez Urea nitrogen/Creatinine [Mass ratio] 34.5 mg/mg Normal [facility] Comment on above: Performed By: #### B MP ####[facility] Ihkqpqnyhc55[address] [place], [place] [id number]. Marlin Gonzalez BNPon 10-20-2021 Natriuretic peptide B (Bld) [Mass/Vol] 91449.0 pg/mL Critically high <=900.0 [facility] Comment on above: Performed By: #### B FACT CHECKER ####[facility] Alkreeczls697262 [address] [place], [place] [address]Dr. Marlin Gonzalez CBC AUTO DIFFon 10-20-2021 BASO # 0.0 103/ul Normal 0.0-0.1 [facility] Comment on above: Performed By: #### C BC ####[facility] Fcglnbwsht706862 [address] [place], [place] [address]Dr. Katherinearmando Gonzalez Basophils/100 WBC (Bld) 0.0 % Critically low 0.2-2.0 [facility] Comment on above: Performed By: #### C BC ####[facility] Vowmptoyhu9280[address] [place], [place] [address]Dr. Katherinearmando Carlos EO # 0.0 103/ul Normal 0.0-0.7 [facility] Comment on above: Performed By: #### C BC ####[facility] Lyfcrztyvj588[address] [place], [place] [address]Dr. Marlin Carlos Eosinophils/100 WBC (Bld) 0.0 % Critically low 0.9-7.0 [facility] Comment on above: Performed By: #### C BC ####[facility] Xeibldqzsc187[address] [place], [place] [address]Dr. Marlin Gonzalez Erythrocyte distribution width (RBC) [Ratio] 14.3 % Normal 11.0-15.0 [facility] Comment on above: Performed By: #### C BC ####[facility] Dbrcncyssc987[address] [place], [place] [address]Dr. Katherinearmando Gonzalez Hematocrit (Bld) [Volume fraction] 27.2 % Critically low 36.0-48.0 [facility] Comment on above: Performed By: #### C BC ####[facility] Ookodsqxnl911[address] [place], [place] [address]Dr. Katherinearmando Gonzalez Hemoglobin (Bld) [Mass/Vol] 8.7 g/dL Critically low 12.0-16.[address] [facility] Comment on above: Performed By: #### C BC ####[facility] Bonwoatmfd9711 [place] [address]DrLucia Murphyarmando Gonzalez IG # 0.04 10e3/ul Critically high 0.00-0.[address] [facility] Comment on above: Performed By: #### C BC ####[facility] Horgxaqaut4016 [place] [address]DrLucia Gonzalez IG % 0.6 % Critically high 0.0-0.[address] [facility] Comment on above: Performed By: #### C BC ####[facility] Yibjryhpsb7937[address] [place], [place] [address]DrLucia Gonzalez LYMPH # 0.4 103/ul Critically low 1.2-3.[address] [facility] Comment on above: Performed By: #### C BC ####[facility] Jlftkkjfji216[address] [place], [place] [address]DrLucia Gonzalez Lymphocytes/100 WBC (Bld) 5.2 % Critically low 20.5-60.[address] [facility] Comment on above: Performed By: #### C BC ####[facility] Mkhmmgfbgk657[address] [place], [place] [address]DrLucia Gonzalez MANUAL DIFF REQ NO Normal [facility] Comment on above: Performed By: #### C BC ####[facility] Rqjzmsrcrb5309 [place] [address]DrLucia Gonzalez MCH (RBC) [Entitic mass] 30.2 pg Normal 26.7-34.[address] [facility] Comment on above: Performed By: #### C BC ####[facility] Ecqexadrgf1367[address] [place], [place] [address]Dr. Katherinearmando Gonzalez MCHC (RBC) [Mass/Vol] 32.0 g/dL Normal 29.9-35.[address] [facility] Comment on above: Performed By: #### C BC ####[facility] Kmiiofyrhf6250 [place] [address]DrLucia Gonzalez MCV (RBC) [Entitic vol] 94.4 fL Normal 81.0-99.0 [facility] Comment on above: Performed By: #### C BC ####[facility] Kwycwbijct0457 [place] [address]Dr. Marlin Gonzalez MONO # 0.2 103/ul Critically low 0.3-0.[address] [facility] Comment on above: Performed By: #### C BC ####[facility] Lwtrzcjbuv9780 [place] [address]Dr. Marlin Gonzalez Monocytes/100 WBC (Bld) 2.6 % Normal 1.7-12.0 [facility] Comment on above: Performed By: #### C BC ####[facility] Urkaderikh3335 [place] [address]Dr. Marlin Gonzalez NEUT # 6.3 103/ul Normal 1.4-6.[address] [facility] Comment on above: Performed By: #### C BC ####[facility] Imxqanjuld9896 [place] [address]Dr. Marlin Gonzalez Neutrophils/100 WBC (Bld) 91.6 % Critically high 43.0-75.[address] [facility] Comment on above: Performed By: #### C BC ####[facility] Owqbtljhqr5623 [place] [address]Dr. Marlin Gonzalez Platelet mean volume (Bld) [Entitic vol] 9.5 fL Normal 9.5-13.[address] [facility] Comment on above: Performed By: #### C BC ####[facility] Vrqrjvchjo8509 [place] [address]Dr. Marlin Gonzalez PLT 229 103/ul Normal 150-450 [facility] Comment on above: Performed By: #### C BC ####[facility] Kzilvvmoql0633 [place] [id number]. Marlin Gonzalez RBC 2.88 106/ul Critically low 4.20-5.[address] [facility] Comment on above: Performed By: #### C BC ####[facility] Pywxmusdko6260 [place] [address]Dr. Marlin Gonzalez WBC 6.9 103/ul Normal 4.0-11.[address] [facility] Comment on above: Performed By: #### C BC ####[facility] Jhorvzqvqp4181 [place] [id number]. Marlin Carlos POINT OF CARE GLUCOSEon 10-11 Glucose [Mass/Vol] 254 mg/dL Critically high -106 [facility] Comment on above: Performed By: #### P OCGLUC ####[facility] Gzqfvuetfj4401 [place] [address]Dr. Marlin Carlos Glucose [Mass/Vol] 331 mg/dL Critically high 74-106 [facility] Comment on above: Performed By: #### P OCGLUC ####[facility] Ipivovjbmg4870 [place] [address]Dr. Marlin Gonzalez Glucose [Mass/Vol] 429 mg/dL Critically high -106 [facility] Comment on above: Performed By: #### P OCGLUC ####[facility] Nopagaxvmt45[address] [place], [place] [address]Dr. Katherinearmando Carlos Glucose [Mass/Vol] 412 mg/dL Critically high 74-106 [facility] Comment on above: Performed By: #### P OCGLUC ####[facility] Qubpxxtewb94[address] [place], [place] [address]Dr. Katherinearmando Gonzalez PROF CHEM 8 (BAS METB)on Anion gap [Moles/Vol] 16.3 mmol/L Normal [facility] Comment on above: Performed By: #### B MP ####[facility] Knfxtyoabe7095[address] [place], [place] [address]Dr. Marlin Gonzalez Calcium [Mass/Vol] 8.8 mg/dL Normal 8.5-10.[address] [facility] Comment on above: Performed By: #### B MP ####[facility] Qdaxlvtytl6932[address] [place], [place] [address]Dr. Marlin Gonzalez Chloride [Moles/Vol] 95 mmol/L Critically low 98-[address] [facility] Comment on above: Performed By: #### B MP ####[facility] Tixscfnaae217[address] [place], [place] [address]Dr. Marlin Gonzalez CO2 [Moles/Vol] 22.6 mmol/L Normal 21.0-32.[address] [facility] Comment on above: Performed By: #### B MP ####[facility] Nlkwrxopid7336 [place] [address]Dr. Marlin Gonzalez Creatinine [Mass/Vol] 2.96 mg/dL Critically high 0.55-1.[address] [facility] Comment on above: Performed By: #### B MP ####[facility] Hznketdrpa794962 [address] [place], [place] [address]Dr. Marlin Gonzalez EGFR-AF ANDORRAN 19 mL/min/1.73m2 Critically low >=[address] [facility] Comment on above: Performed By: #### B MP ####[facility] Httmcryorq958[address] [place], [place] [address]Dr. Marlin Gonzalez EGFR-NON AF ANDORRAN 15 mL/min/1.73m2 Critically low >=[address] [facility] Comment on above: Performed By: #### B MP ####[facility] Nnynznvaas951362 [address] [place], [place] [address]Dr. Marlin Gonzalez Glucose [Mass/Vol] 389 mg/dL Critically high 74-106 T [facility] Comment on above: Performed By: #### B MP ####[facility] Uzddkqcpkc2520[address] [place], [place] [address]Dr. Marlin Gonzalez Potassium [Moles/Vol] 3.9 mmol/L Normal 3.5-5.[address] [facility] Comment on above: Performed By: #### B MP ####[facility] Vugvgazdlb824[address] [place], [place] [address]Dr. Marlin Gonzalez Sodium [Moles/Vol] 130 mmol/L Critically low 136-145 Th [facility] Comment on above: Performed By: #### B MP ####[facility] Pxqnxyfmrk411[address] [place], [place] [address]Dr. Marlin Gonzalez Urea nitrogen [Mass/Vol] 87.0 mg/dL Critically high 7.0-18.[address] [facility] Comment on above: Performed By: #### B MP ####[facility] Ighnppxbye876962 [address] [place], [place] [address]Dr. Marlin Gonzalez Urea nitrogen/Creatinine [Mass ratio] 29.4 mg/mg Normal [facility] Comment on above: Performed By: #### B MP ####[facility] Hrtxjjvnts428262 [address] [place], [place] [address]Dr. Marlin Carlos XR CHEST 2 Von 10-20-2021 XR CHEST 2 V Normal [facility] BNPon 10-19-2021 Natriuretic peptide B (Bld) [Mass/Vol] 02493.0 pg/mL Critically high <=900.[address] [facility] Comment on above: Performed By: #### B FACT CHECKER, HSTROPN, CMP ####[facility] Hbuiabsuzj137462 [address] [place], [place] [address]Dr. Marlin Gonzalez CBC AUTO DIFFon 10-19-2021 BASO # 0.1 103/ul Normal 0.0-0.[address] [facility] Comment on above: Performed By: #### C BC ####[facility] Ejeggkrtyq430[address] [place], [place] [address]Dr. Marlin Gonzalez Basophils/100 WBC (Bld) 0.4 % Normal 0.2-2.0 [facility] Comment on above: Performed By: #### C BC ####[facility] Kcipibwiaz8895[address] [place], [place] [address]Dr. Marlin Gonzalez EO # 0.4 103/ul Normal 0.0-0.[address] [facility] Comment on above: Performed By: #### C BC ####[facility] Zklahkomnw206[address] [place], [place] [address]Dr. Marlin Gonzalez Eosinophils/100 WBC (Bld) 2.6 % Normal 0.9-7.[address] [facility] Comment on above: Performed By: #### C BC ####[facility] Zcwecwmqwn687[address] [place], [place] [address]Dr. Marlin Gonzalez Erythrocyte distribution width (RBC) [Ratio] 14.6 % Normal 11.0-15.[address] [facility] Comment on above: Performed By: #### C BC ####[facility] Tkntwjtbmv864[address] [place], [place] [address]Dr. Marlin Gonzalez Hematocrit (Bld) [Volume fraction] 31.4 % Critically low 36.0-48.[address] [facility] Comment on above: Performed By: #### C BC ####[facility] Kikwadfbih5550 [place] [address]DrLucia Gonzalez Hemoglobin (Bld) [Mass/Vol] 10.0 g/dL Critically low 12.0-16.[address] [facility] Comment on above: Performed By: #### C BC ####[facility] Wjkygpbhkw0411[address] [place], [place] [address]DrLucia Gonzalez IG # 0.07 10e3/ul Critically high 0.00-0.[address] [facility] Comment on above: Performed By: #### C BC ####[facility] Kjoceiypaq22[address] [place], [place] [address]DrLucia Gonzalez IG % 0.5 % Normal 0.0-0.[address] [facility] Comment on above: Performed By: #### C BC ####[facility] Uhvctoybua725[address] [place], [place] [address]DrLucia Gonzalez LYMPH # 1.4 103/ul Normal 1.2-3.[address] [facility] Comment on above: Performed By: #### C BC ####[facility] Yiijtqutao9211[address] [place], [place] [address]DrLucia Gonzalez Lymphocytes/100 WBC (Bld) 10.1 % Critically low 20.5-60.[address] [facility] Comment on above: Performed By: #### C BC ####[facility] Dbvzlsuyjy768[address] [place], [place] [address]DrLucia Gonzalez MANUAL DIFF REQ NO Normal [facility] Comment on above: Performed By: #### C BC ####[facility] Tmptigqqua3089 [place] [address]DrLucia Gonzalez MCH (RBC) [Entitic mass] 30.5 pg Normal 26.7-34.[address] [facility] Comment on above: Performed By: #### C BC ####[facility] Njhewyencd7567 [place] [address]DrLucia Gonzalez MCHC (RBC) [Mass/Vol] 31.8 g/dL Normal 29.9-35.[address] [facility] Comment on above: Performed By: #### C BC ####[facility] Hmgrpxtgtl0759 [place] [address]DrLucia Murphyarmando Carlos MCV (RBC) [Entitic vol] 95.7 fL Normal 81.0-99.0 [facility] Comment on above: Performed By: #### C BC ####[facility] Evmjqtqidd7910 [place] [address]DrLucia Gonzalez MONO # 1.2 103/ul Critically high 0.3-0.[address] [facility] Comment on above: Performed By: #### C BC ####[facility] Jtwggzjndd0658 [place] [address]DrLucia Gonzalez Monocytes/100 WBC (Bld) 9.0 % Normal 1.7-12.0 [facility] Comment on above: Performed By: #### C BC ####[facility] Ynorcbfjrf2905[address] [place], [place] [address]DrLucia Gonzalez NEUT # 10.5 103/ul Critically high 1.4-6.[address] [facility] Comment on above: Performed By: #### C BC ####[facility] Kbdnlwmgwf5490[address] [place], [place] [address]DrLucia Gonzalez Neutrophils/100 WBC (Bld) 77.4 % Critically high 43.0-75.[address] [facility] Comment on above: Performed By: #### C BC ####[facility] Xlpkkmgfxz596[address] [place], [place] [address]DrLucia Gonzalez Platelet mean volume (Bld) [Entitic vol] 9.7 fL Normal 9.5-13.[address] [facility] Comment on above: Performed By: #### C BC ####[facility] Bgplggcemx412[address] [place], [place] [address]DrLucia Gonzalez PLT 291 103/ul Normal 150-450 [facility] Comment on above: Performed By: #### C BC ####[facility] X[address]qhvyrtaa[address] [place], [place] [id number] Gonzalez RBC 3.28 106/ul Critically low 4.20-5.[address] [facility] Comment on above: Performed By: #### C BC ####[facility] Jtjcvbkpli4883 [place] [phone]. Marlin Gonzalez WBC 13.5 103/ul Critically high 4.0-11.[address] [facility] Comment on above: Performed By: #### C BC ####[facility] Xoxetmkumh0718 [place] [id number]. Marlin Gonzalez CULTURE BLOODon 10-19-2021 Microscopic examination of blood, culture Culture Observations: NO GROWTH AT 5 DAYS. Normal [facility] Comment on above: Performed By: #### B LDCX2 ####[facility] Mxitlkkhej2426 [place] [address]Dr. Marlin Gonzalez Microscopic examination of blood, culture Culture Observations: NO GROWTH AT 5 DAYS. Normal [facility] Comment on above: Performed By: #### B LDCX1 ####[facility] Hqupayhpev1844 [place] [id number]. Marlin Gonzalez Covid-19 PCR (CVDTB)on SARS-CoV-2 (COVID-19) RNA [place]+probe Ql (Unsp spec) Not detected Normal NOT DETECTED [facility] Comment on above: Result Comment: When diagnostic testing is negative, the possibility of a false negative should be considered inthe context of a patient's recent exposures and the presence of clinical signs and symptomsconsistent with SARS-CoV-2.This test is not yet approved or cleared by the [place] FDA. When there are no FDA-approved or cleared tests available, and other criteria are met, FDA can make tests available under an emergency access mechanism called an Emergency Use Authorization (EUA). The EUA for this test is supported by the Registered Health Nurse of Health and Human Service's declaration that circumstances exist to justify the emergency use of in vitro diagnostics for the detection and/or diagnosis of the virus that causes COVID-19. This EUA will remain in effect for the duration of the COVID-19 declaration justifying emergency of IVDs, unless it is terminated or revoked by the FDA (after which the test may no longer be used). Performed By: #### C VDTBH ####[facility] Ygrhqmmloo7282 [place] [address]Dr. Marlin Gonzalez ECHO LIMITED STUDYon 022 ECHO LIMITED STUDY Normal [facility] POINT OF CARE GLUCOSEon Glucose [Mass/Vol] 267 mg/dL Critically high 74-106 [facility] Comment on above: Performed By: #### P OCGLUC ####[facility] Lsmuniyfeh1347 [place] [address]Dr. Marlin Gonzalez Glucose [Mass/Vol] 243 mg/dL Critically high 74-106 [facility] Comment on above: Performed By: #### P OCGLUC ####[facility] Yvskkyxivh9538 [place] [address]Dr. Marlin Gonzalez PROF 14(COMP METB)on 022 Albumin [Mass/Vol] 3.4 g/dL Normal 3.4-5.[address] [facility] Comment on above: Performed By: #### B FACT CHECKER, HSTROPN, CMP ####[facility] Kssxnxbvwt2861 [place] [address]Dr. Marlin Gonzalez Albumin/Globulin [Mass ratio] 0.9 {ratio} Normal [facility] Comment on above: Performed By: #### B FACT CHECKER, HSTROPN, CMP ####[facility] Finqcoqqan1726 [place] [address]Dr. Marlin Gonzalez ALP [Catalytic activity/Vol] 126 U/L Critically high 46-[address] [facility] Comment on above: Performed By: #### B FACT CHECKER, HSTROPN, CMP ####[facility] Cbkjohkzut5643 [place] [address]Dr. Marlin Gonzalez ALT [Catalytic activity/Vol] 45 U/L Normal 14-[address] [facility] Comment on above: Performed By: #### B FACT CHECKER, HSTROPN, CMP ####[facility] Wphkmsqxns7015 [place] [address]Dr. Marlin Gonzalez Anion gap [Moles/Vol] 18.0 mmol/L Normal [facility] Comment on above: Performed By: #### B FACT CHECKER, HSTROPN, CMP ####[facility] Unlddigxvq[address] [place] [address]Dr. Marlin Gonzalez AST [Catalytic activity/Vol] 24 U/L Normal 15-37 [facility] Comment on above: Performed By: #### B FACT CHECKER, HSTROPN, CMP ####[facility] Trmiyiuxdc06[address] [place] [address]Dr. Marlin Gonzalez Bilirubin [Mass/Vol] 0.4 mg/dL Normal 0.2-1.0 [facility] Comment on above: Performed By: #### B FACT CHECKER, HSTROPN, CMP ####[facility] Ensgzrqxas[address] [place] [address]Dr. Marlin Gonzalez Calcium [Mass/Vol] 9.4 mg/dL Normal 8.5-10.1 [facility] Comment on above: Performed By: #### B FACT CHECKER, HSTROPN, CMP ####[facility] Mqvjtgmwy[address] [place], [place] [address]Dr. Marlin Gonzalez Chloride [Moles/Vol] 97 mmol/L Critically low 98-107 [facility] Comment on above: Performed By: #### B FACT CHECKER, HSTROPN, CMP ####[facility] Cruzpjyhth[address] [place], [place] [address]Dr. Marlin Gonzalez CO2 [Moles/Vol] 24.0 mmol/L Normal 21.0-32.0 [facility] Comment on above: Performed By: #### B FACT CHECKER, HSTROPN, CMP ####[facility] Rvtnlqvrfo[address] [place], [place] [address]Dr. Marlin Gonzalez Creatinine [Mass/Vol] 2.83 mg/dL Critically high 0.55-1.02 [facility] Comment on above: Performed By: #### B FACT CHECKER, HSTROPN, CMP ####[facility] Iebnmyrdya[address] [place], [place] [address]Dr. Marlin Gonzalez EGFR-AF ANDORRAN 20 mL/min/1.73m2 Critically low >=60 [facility] Comment on above: Performed By: #### B FACT CHECKER, HSTROPN, CMP ####[facility] Ncdcfnjkwv[address] [place] [address]Dr. Marlin Gonzalez EGFR-NON AF ANDORRAN 16 mL/min/1.73m2 Critically low >=[address] [facility] Comment on above: Performed By: #### B FACT CHECKER, HSTROPN, CMP ####[facility] Jmzgyaoqtz[address] [place] [address]Dr. Marlin Gonzalez Globulin (S) [Mass/Vol] 3.7 g/dL Normal T [facility] Comment on above: Performed By: #### B FACT CHECKER, HSTROPN, CMP ####[facility] Gdhsaxirkg49[address] [place] [address]Dr. Marlin Gonzalez Glucose [Mass/Vol] 90 mg/dL Normal 74-[address] [facility] Comment on above: Performed By: #### B FACT CHECKER, HSTROPN, CMP ####[facility] Ytxzjptkem7658 [place] [address]Dr. Marlin Gonzalez Potassium [Moles/Vol] 4.0 mmol/L Normal 3.5-5.[address] [facility] Comment on above: Performed By: #### B FACT CHECKER, HSTROPN, CMP ####[facility] Nqevydxquu[address] [place], [place] [address]Dr. Marlin Gonzalez Protein [Mass/Vol] 7.1 g/dL Normal 6.4-8.[address] [facility] Comment on above: Performed By: #### B FACT CHECKER, HSTROPN, CMP ####[facility] Jtrhohsjuv13[address] [place] [address]Dr. Marlin Gonzalez Sodium [Moles/Vol] 135 mmol/L Critically low 136-145 [facility] Comment on above: Performed By: #### B FACT CHECKER, HSTROPN, CMP ####[facility] Knrzaebifs[address] [place], [place] [address]Dr. Marlin Gonzalez Urea nitrogen [Mass/Vol] 81.0 mg/dL Critically high 7.0-18.[address] [facility] Comment on above: Performed By: #### B FACT CHECKER, HSTROPN, CMP ####[facility] Vejazjrslm[address] [place], [place] [address]Dr. Marlin Gonzalez Urea nitrogen/Creatinine [Mass ratio] 28.6 mg/mg Normal [facility] Comment on above: Performed By: #### B FACT CHECKER, CARLEYN, CMP ####[facility] Tgmgwlfjge86[address] [place] [address]Dr. Marlin Gonzalez TROPONIN, HIGH SENSITIVITYon 10-19-2021 HSTROP 23.7 pg/mL Normal 4.0-51.3 [facility] Comment on above: Result Comment: CUT- OFF POINTS HAVE BEEN ESTABLISHED BASED ON THE FOURTH UNIVERSAL DEFINITIONS OF MYOCARDIALINFARCTION. THE UPPER REFERENCE LIMIT (URL) OF TROPONIN, DEFINED THE 99TH PERCENTILE OFcTnI DISTRIBUTION IN A REFERENCE POPULATION, HAS BEEN CONFIRMED THE DECISION THRESHOLDFOR SC DIAGNOSIS. Performed By: #### B FACT CHECKERCARLEYN, CMP ####[facility] Ewuimqcbvh[address] [place], [place] [address]Dr. Marlin Gonzalez XR CHEST 1 Von 10-19-2021 XR CHEST 1 V Normal [facility] BNPon 09-02-2021 Natriuretic peptide B (Bld) [Mass/Vol] 94470.0 pg/mL Critically high <=900.0 [facility] Comment on above: Performed By: #### B FACT CHECKER, CMP ####[facility] Hxgflooznt8[address] [place], [place] [address]Dr. Marlin Gonzalez CBC AUTO DIFFon 09-02-2021 BASO # 0.0 103/ul Normal 0.0-0.1 [facility] Comment on above: Performed By: #### C BC ####[facility] Jdohmbpoos[address] [place], [place] [address]DrLucia Gonzalez Basophils/100 WBC (Bld) 0.0 % Critically low 0.2-2.0 [facility] Comment on above: Performed By: #### C BC ####[facility] Abhwvdcmxl4[address] [place], [place] [address]DrLucia Gonzalez EO # 0.0 103/ul Normal 0.0-0.7 [facility] Comment on above: Performed By: #### C BC ####[facility] Skxoeqgzlf169[address] [place], [place] [address]Dr. Marlin Gonzalez Eosinophils/100 WBC (Bld) 0.0 % Critically low 0.9-7.0 [facility] Comment on above: Performed By: #### C BC ####[facility] Rmkwejccnh700[address] [place], [place] [address]Dr. Marlin Gonzalez Erythrocyte distribution width (RBC) [Ratio] 14.3 % Normal 11.0-15.0 [facility] Comment on above: Performed By: #### C BC ####[facility] Nrqhfjautp538[address] [place], [place] [address]Dr. Marlin Gonzalez Hematocrit (Bld) [Volume fraction] 32.3 % Critically low 36.0-48.0 [facility] Comment on above: Performed By: #### C BC ####[facility] Xdwattoyna80[address] [place], [place] [address]Dr. Marlin Gonzalez Hemoglobin (Bld) [Mass/Vol] 10.2 g/dL Critically low 12.0-16.0 [facility] Comment on above: Performed By: #### C BC ####[facility] Wjtwweyfvx220[address] [place], [place] [address]Dr. Marlin Gonzalez IG # 0.06 10e3/ul Critically high 0.00-0.03 [facility] Comment on above: Performed By: #### C BC ####[facility] Xrbolgjjvh195[address] [place], [place] [address]Dr. Marlin Gonzalez IG % 0.5 % Normal 0.0-0.5 [facility] Comment on above: Performed By: #### C BC ####[facility] Zcriplsmuh94[address] [place], [place] [address]Dr. Marlin Gonzalez LYMPH # 1.0 103/ul Critically low 1.2-3.8 [facility] Comment on above: Performed By: #### C BC ####[facility] Opinelejil2838[address] [place], [place] [address]Dr. Marlin Gonzalez Lymphocytes/100 WBC (Bld) 8.6 % Critically low 20.5-60.0 [facility] Comment on above: Performed By: #### C BC ####[facility] Silhrebaxi39[address] [place] [address]Dr. Marlin Carlos MANUAL DIFF REQ NO Normal [facility] Comment on above: Performed By: #### C BC ####[facility] Eiudhnrivf050[address] [place] [address]Dr. Marlin Gonzalez MCH (RBC) [Entitic mass] 29.4 pg Normal 26.7-34.[address] [facility] Comment on above: Performed By: #### C BC ####[facility] Djtxsynpwb9110 [place] [address]Dr. Marlin Carlos MCHC (RBC) [Mass/Vol] 31.6 g/dL Normal 29.9-35.[address] [facility] Comment on above: Performed By: #### C BC ####[facility] Vfbwaprizn3[address] [place] [address]Dr. Katherinearmando Gonzalez MCV (RBC) [Entitic vol] 93.1 fL Normal 81.0-99.0 [facility] Comment on above: Performed By: #### C BC ####[facility] Vyvicklafa[address] [place], [place] [address]Dr. Katherinearmando Gonzalez MONO # 0.8 103/ul Normal 0.3-0.[address] [facility] Comment on above: Performed By: #### C BC ####[facility] Bmeibwxgnx16[address] [place], [place] [address]Dr. Katherinearmando Gonzalez Monocytes/100 WBC (Bld) 7.5 % Normal 1.7-12.0 [facility] Comment on above: Performed By: #### C BC ####[facility] Cujmdngjvc7899 [place] [address]Dr. Marlin Gonzalez NEUT # 9.3 103/ul Critically high 1.4-6.[address] [facility] Comment on above: Performed By: #### C BC ####[facility] Ngsmnayest36[address] [place], [place] [address]Dr. Marlin Gonzalez Neutrophils/100 WBC (Bld) 83.4 % Critically high 43.0-75.[address] [facility] Comment on above: Performed By: #### C BC ####[facility] Xdrkjaszkm7002 [place] [address]Dr. Marlin Gonzalez Platelet mean volume (Bld) [Entitic vol] 9.9 fL Normal 9.5-13.[address] [facility] Comment on above: Performed By: #### C BC ####[facility] Mqzqabkuox45[address] [place] [address]Dr. Marlin Gonzalez PLT 247 103/ul Normal 150-[address] [facility] Comment on above: Performed By: #### C BC ####[facility] Fqrwlointf1495 [place] [address]Dr. Marlin Gonzalez RBC 3.47 106/ul Critically low 4.20-5.[address] [facility] Comment on above: Performed By: #### C BC ####[facility] Zmpteunqpg0135 [place] [address]Dr. Marlin Gonzalez WBC 11.2 103/ul Critically high 4.0-11.[address] [facility] Comment on above: Performed By: #### C BC ####[facility] Gycskobntl4897 [place] [address]Dr. Marlin Carlos POINT OF CARE GLUCOSEon 08-11 Glucose [Mass/Vol] 175 mg/dL Critically high 74-106 T [facility] Comment on above: Performed By: #### P OCGLUC ####[facility] Sibepiapek5[address] [place] [address]Dr. Marlin Carlos Glucose [Mass/Vol] 73 mg/dL Critically low 74-106 [facility] Comment on above: Performed By: #### P OCGLUC ####[facility] Bpizacdflr6609 [place] [address]Dr. Marlin Gonzalez Glucose [Mass/Vol] 70 mg/dL Critically low 74-106 [facility] Comment on above: Performed By: #### P OCGLUC ####[facility] Efbrkkqpvx[address] [place], [place] [address]Dr. Marlin Gonzalez PROF 14(COMP METB)on 022 Albumin [Mass/Vol] 3.0 g/dL Critically low 3.4-5.0 [facility] Comment on above: Performed By: #### B FACT CHECKER, CMP ####[facility] Jodavcxamp8647 [place] [address]Dr. Katherinearmando Gonzalez Albumin/Globulin [Mass ratio] 0.9 {ratio} Normal [facility] Comment on above: Performed By: #### B FACT CHECKER, CMP ####[facility] Oyxasbnpgr9026 [place] [id number]. Marlin Gonzalez ALP [Catalytic activity/Vol] 90 U/L Normal 46-[address] [facility] Comment on above: Performed By: #### B FACT CHECKER, CMP ####[facility] Rfnkmmgoar9934[address] [place], [place] [address]Dr. Marlin Gonzalez ALT [Catalytic activity/Vol] 43 U/L Normal 14-[address] [facility] Comment on above: Performed By: #### B FACT CHECKER, CMP ####[facility] Jyakhkdiuy0113[address] [place], [place] [address]Dr. Marlin Gonzalez Anion gap [Moles/Vol] 13.0 mmol/L Normal [facility] Comment on above: Performed By: #### B FACT CHECKER, CMP ####[facility] Fxasyjvnqr967[address] [place], [place] [address]Dr. Marlin Gonzalez AST [Catalytic activity/Vol] 24 U/L Normal 15-[address] [facility] Comment on above: Performed By: #### B FACT CHECKER, CMP ####[facility] Uchrxkrvqh1625[address] [place], [place] [address]Dr. Marlin Gonzalez Bilirubin [Mass/Vol] 0.2 mg/dL Normal 0.2-1.[address] [facility] Comment on above: Performed By: #### B FACT CHECKER, CMP ####[facility] Mymomlzrfn25[address] [place], [place] [address]Dr. Marlin Gonzalez Calcium [Mass/Vol] 8.9 mg/dL Normal 8.5-10.[address] [facility] Comment on above: Performed By: #### B FACT CHECKER, CMP ####[facility] Hzhlwpfwch8614[address] [place], [place] [address]Dr. Marlin Gonzalez Chloride [Moles/Vol] 100 mmol/L Normal 98-107 [facility] Comment on above: Performed By: #### B FACT CHECKER, CMP ####[facility] Rhcfxnctlb5601 [place] [id number]. Marlin Gonzalez CO2 [Moles/Vol] 24.3 mmol/L Normal 21.0-32.[address] [facility] Comment on above: Performed By: #### B FACT CHECKER, CMP ####[facility] Qcjfblbftu5636 [place] [phone]. aMrlin Gonzalez Creatinine [Mass/Vol] 3.25 mg/dL Critically high 0.55-1.[address] [facility] Comment on above: Performed By: #### B FACT CHECKER, CMP ####[facility] Krwnyconwk[address] [place], [place] [id number]. Marlin Gonzalez EGFR-AF ANDORRAN 17 mL/min/1.73m2 Critically low >=60 [facility] Comment on above: Performed By: #### B FACT CHECKER, CMP ####[facility] Rszzxscnax664[address] [place], [place] [address]Dr. Marlin Carlos EGFR-NON AF ANDORRAN 14 mL/min/1.73m2 Critically low >=60 [facility] Comment on above: Performed By: #### B FACT CHECKER, CMP ####[facility] Fmfxrfcglu100[address] [place], [place] [address]Dr. Marlin Gonzalez Globulin (S) [Mass/Vol] 3.4 g/dL Normal T [facility] Comment on above: Performed By: #### B FACT CHECKER, CMP ####[facility] Gtvmgssluf0701[address] [place], [place] [address]Dr. Marlin Gonzalez Glucose [Mass/Vol] 98 mg/dL Normal 74-106 [facility] Comment on above: Performed By: #### B FACT CHECKER, CMP ####[facility] Vihahpccxz[address] [place], [place] [id number]. Marlin Gonzalez Potassium [Moles/Vol] 4.3 mmol/L Normal 3.5-5.1 [facility] Comment on above: Performed By: #### B FACT CHECKER, CMP ####[facility] T[address]ylcykkfv[address] [place], [place] [id number]. Marlin Gonzalez Protein [Mass/Vol] 6.4 g/dL Normal 6.4-8.[address] [facility] Comment on above: Performed By: #### B FACT CHECKER, CMP ####[facility] Delydxnulq1525 [place] [address]Dr. Marlin Gonzalez Sodium [Moles/Vol] 133 mmol/L Critically low 136-145 [facility] Comment on above: Performed By: #### B FACT CHECKER, CMP ####[facility] Fozhmfdzke96[address] [place], [place] [address]Dr. Marlin Gonzalez Urea nitrogen [Mass/Vol] 80.0 mg/dL Critically high 7.0-18.[address] [facility] Comment on above: Performed By: #### B FACT CHECKER, CMP ####[facility] Uumaixfsqc69[address] [place], [place] [address]Dr. Marlin Gonzalez Urea nitrogen/Creatinine [Mass ratio] 24.6 mg/mg Normal [facility] Comment on above: Performed By: #### B FACT CHECKER, CMP ####[facility] Sgpxxygqzb250[address] [place], [place] [address]Dr. Marlin Gonzalez BNPon 09-01-2021 Natriuretic peptide B (Bld) [Mass/Vol] 48288.0 pg/mL Critically high <=900.[address] [facility] Comment on above: Performed By: #### C MP, BNP ####[facility] Oxxjpgxbka4870[address] [place], [place] [address]Dr. Marlin Gonzalez CBC AUTO DIFFon 09-01-2021 BASO # 0.0 103/ul Normal 0.0-0.1 [facility] Comment on above: Performed By: #### C BC ####[facility] Uvkiafcmyd412[address] [place], [place] [address]Dr. Marlin Carlos Basophils/100 WBC (Bld) 0.0 % Critically low 0.2-2.0 [facility] Comment on above: Performed By: #### C BC ####[facility] Gstbrormcx[address] [place], [place] [address]Dr. Marlin Gonzalez EO # 0.0 103/ul Normal 0.0-0.7 [facility] Comment on above: Performed By: #### C BC ####[facility] Mrykdonvba8775 [place] [id number]. Marlin Gonzalez Eosinophils/100 WBC (Bld) 0.0 % Critically low 0.9-7.0 [facility] Comment on above: Performed By: #### C BC ####[facility] Gzwmqjlrzo7224 [place] [address]Dr. Marlin Gonzalez Erythrocyte distribution width (RBC) [Ratio] 14.5 % Normal 11.0-15.0 [facility] Comment on above: Performed By: #### C BC ####[facility] Foqypyycjt38[address] [place], [place] [address]Dr. Marlin Gonzalez Hematocrit (Bld) [Volume fraction] 31.3 % Critically low 36.0-48.0 [facility] Comment on above: Performed By: #### C BC ####[facility] Muptpkxcht48[address] [place], [place] [address]Dr. Marlin Gonzalez Hemoglobin (Bld) [Mass/Vol] 9.9 g/dL Critically low 12.0-16.0 [facility] Comment on above: Performed By: #### C BC ####[facility] Dwdpdlkyvv916[address] [place], [place] [address]Dr. Marlin Gonzalez IG # 0.02 10e3/ul Normal 0.00-0.03 [facility] Comment on above: Performed By: #### C BC ####[facility] Wkmjfeivbk5640 [place] [address]Dr. Marlin Gonzalez IG % 0.4 % Normal 0.0-0.5 [facility] Comment on above: Performed By: #### C BC ####[facility] Huzbqsomri297[address] [place], [place] [address]Dr. Marlin Gonzalez LYMPH # 0.5 103/ul Critically low 1.2-3.8 [facility] Comment on above: Performed By: #### C BC ####[facility] Rajkksfrcl8[address] [place], [place] [address]Dr. Marlin Gonzalez Lymphocytes/100 WBC (Bld) 9.4 % Critically low 20.5-60.0 [facility] Comment on above: Performed By: #### C BC ####[facility] Wasdumptex[address] [place] [address]Dr. Marlin Gonzalez MANUAL DIFF REQ NO Normal [facility] Comment on above: Performed By: #### C BC ####[facility] Jjhkjkgerg[address] [place] [phone]. Marlin Gonzalez MCH (RBC) [Entitic mass] 29.9 pg Normal 26.7-34.[address] [facility] Comment on above: Performed By: #### C BC ####[facility] Ysdyifkouo425[address] [place], [place] [address]Dr. Marlin Gonzalez MCHC (RBC) [Mass/Vol] 31.6 g/dL Normal 29.9-35.[address] [facility] Comment on above: Performed By: #### C BC ####[facility] Ttsteiplro419[address] [place], [place] [address]Dr. Marlin Gonzalez MCV (RBC) [Entitic vol] 94.6 fL Normal 81.0-99.0 [facility] Comment on above: Performed By: #### C BC ####[facility] Udbieccokw[address] [place], [place] [address]Dr. Marlin Gonzalez MONO # 0.1 103/ul Critically low 0.3-0.[address] [facility] Comment on above: Performed By: #### C BC ####[facility] Tsrwxsojkc[address] [place], [place] [address]Dr. Marlin Gonzalez Monocytes/100 WBC (Bld) 2.3 % Normal 1.7-12.0 [facility] Comment on above: Performed By: #### C BC ####[facility] Rhqqfqidsw50[address] [place], [place] [address]Dr. Marlin Gonzalez NEUT # 4.2 103/ul Normal 1.4-6.[address] [facility] Comment on above: Performed By: #### C BC ####[facility] Lgeepffdmi64[address] [place], [place] [address]Dr. Marlin Gonzalez Neutrophils/100 WBC (Bld) 87.9 % Critically high 43.0-75.[address] [facility] Comment on above: Performed By: #### C BC ####[facility] Jhcrdggssf9204 [place] [phone]. Marlin Gonzalez Platelet mean volume (Bld) [Entitic vol] 9.9 fL Normal 9.5-13.[address] [facility] Comment on above: Performed By: #### C BC ####[facility] Bkqjmikjbt6503 [place] [phone]. Marlin Gonzalez PLT 226 103/ul Normal 150-[address] [facility] Comment on above: Performed By: #### C BC ####[facility] Fmtiljvlbp6173 [place] [phone]. Marlin Gonzalez RBC 3.31 106/ul Critically low 4.20-5.[address] [facility] Comment on above: Performed By: #### C BC ####[facility] Idaivdrjpr4682 [place] [address]Dr. Marlin Gonzalez WBC 4.8 103/ul Normal 4.0-11.[address] [facility] Comment on above: Performed By: #### C BC ####[facility] Xzcaldpqpc9587 [place] [phone]. Marlin Gonzalez POINT OF CARE GLUCOSEon 08-11 Glucose [Mass/Vol] 188 mg/dL Critically high 74-106 [facility] Comment on above: Performed By: #### P OCGLUC ####[facility] Tumusqkqsq5493 [place] [address]Dr. Marlin Gonzalez Glucose [Mass/Vol] 141 mg/dL Critically high 74-106 [facility] Comment on above: Performed By: #### P OCGLUC ####[facility] Vnccupztfd1198 [place] [phone]. Marlin Gonzalez Glucose [Mass/Vol] 359 mg/dL Critically high -106 [facility] Comment on above: Performed By: #### P OCGLUC ####[facility] Ttiqnapsll4213 [place] [address]Dr. Marlin Gonzalez Glucose [Mass/Vol] 202 mg/dL Critically high -106 [facility] Comment on above: Performed By: #### P OCGLUC ####[facility] Vhyzxphzey4456 [place] [address]Dr. Marlin Gonzalez PROF 14(COMP METB)on 022 Albumin [Mass/Vol] 3.0 g/dL Critically low 3.4-5.0 [facility] Comment on above: Performed By: #### C MP, BNP ####[facility] Cuxbccrpvr9300 [place] [address]Dr. Marlin Gonzalez Albumin/Globulin [Mass ratio] 0.9 {ratio} Normal [facility] Comment on above: Performed By: #### C MP, BNP ####[facility] Dsalowezhw9886 [place] [address]Dr. Marlin Gonzalez ALP [Catalytic activity/Vol] 92 U/L Normal 46-[address] [facility] Comment on above: Performed By: #### C MP, BNP ####[facility] Jarveangzv3108 [place] [address]Dr. Marlin Gonzalez ALT [Catalytic activity/Vol] 51 U/L Normal 14-[address] [facility] Comment on above: Performed By: #### C MP, BNP ####[facility] Frarfnpyfl5840 [place] [address]Dr. Marlin Gonzalez Anion gap [Moles/Vol] 15.0 mmol/L Normal [facility] Comment on above: Performed By: #### C MP, BNP ####[facility] Orbaenyswj9659 [place] [address]Dr. Marlin Gonzalez AST [Catalytic activity/Vol] 31 U/L Normal 15-[address] [facility] Comment on above: Performed By: #### C MP, BNP ####[facility] Jfxpirypfi3054 [place] [address]Dr. Marlin Gonzalez Bilirubin [Mass/Vol] 0.3 mg/dL Normal 0.2-1.[address] [facility] Comment on above: Performed By: #### C MP, BNP ####[facility] Rtmkrmfoho9340 [place] [address]Dr. Marlin Gonzalez Calcium [Mass/Vol] 8.7 mg/dL Normal 8.5-10.[address] [facility] Comment on above: Performed By: #### C MP, BNP ####[facility] Tyapkcbbmo6228 [place] [address]Dr. Marlin Carlos Chloride [Moles/Vol] 99 mmol/L Normal 98-[address] [facility] Comment on above: Performed By: #### C MP, BNP ####[facility] Z[address]jsvafch[address] [place], [place] [address]Dr. Marlin Carlos CO2 [Moles/Vol] 21.5 mmol/L Normal 21.0-32.[address] [facility] Comment on above: Performed By: #### C MP, BNP ####[facility] Qwzbxyczmp[address] [place], [place] [address]Dr. Marlin Carlos Creatinine [Mass/Vol] 3.70 mg/dL Critically high 0.55-1.[address] [facility] Comment on above: Performed By: #### C MP, BNP ####[facility] Hpdluxuwfi384[address] [place], [place] [address]Dr. Marlin Carlos EGFR-AF ANDORRAN 15 mL/min/1.73m2 Critically low >=[address] [facility] Comment on above: Performed By: #### C MP, BNP ####[facility] Hfvcyxbrwb[address] [place], [place] [address]Dr. Marlin Carlos EGFR-NON AF ANDORRAN 12 mL/min/1.73m2 Critically low >=[address] [facility] Comment on above: Performed By: #### C MP, BNP ####[facility] Tuhmcxqaaa[address] [place], [place] [address]Dr. Katherinearmando Gonzalez Globulin (S) [Mass/Vol] 3.3 g/dL Normal [facility] Comment on above: Performed By: #### C MP, BNP ####[facility] Lngitdpfpz69[address] [place], [place] [address]Dr. Marlin Gonzalez Glucose [Mass/Vol] 221 mg/dL Critically high 74-106 [facility] Comment on above: Performed By: #### C MP, BNP ####[facility] Bpftdyeatg854[address] [place], [place] [address]Dr. Marlin Gonzalez Potassium [Moles/Vol] 4.5 mmol/L Normal 3.5-5.[address] [facility] Comment on above: Performed By: #### C MP, BNP ####[facility] Cxrbvhicoj940[address] [place], [place] [address]Dr. Marlin Gonzalez Protein [Mass/Vol] 6.3 g/dL Critically low 6.4-8.2 [facility] Comment on above: Performed By: #### C MP, BNP ####[facility] Sbvqufqzjv45[address] [place], [place] [address]Dr. Marlin Gonzalez Sodium [Moles/Vol] 131 mmol/L Critically low 136-145 Th [facility] Comment on above: Performed By: #### C MP, BNP ####[facility] Xzibisfjdd8924[address] [place], [place] [address]Dr. Marlin Gonzalez Urea nitrogen [Mass/Vol] 80.0 mg/dL Critically high 7.0-18.[address] [facility] Comment on above: Performed By: #### C MP, BNP ####[facility] Mqwtzpxkxt06[address] [place], [place] [address]Dr. Marlin Gonzalez Urea nitrogen/Creatinine [Mass ratio] 21.6 mg/mg Normal [facility] Comment on above: Performed By: #### C MP, BNP ####[facility] Olqgmjzyev6415[address] [place], [place] [address]Dr. Marlin Gonzalez XR CHEST 1 Von 09-01-2021 XR CHEST 1 V Normal [facility] BLOOD GASES BTYon 08-31-2021 02 MODE NASAL CANNULA Normal [facility] Comment on above: Performed By: #### A BG ####[facility] Qstglmhhcv293[address] [place], [place] [address]Dr. Marlin Gonzalez ALLENS TEST Positive Normal [facility] Comment on above: Performed By: #### A BG ####[facility] Tvfjbydano0434[address] [place], [place] [address]Dr. Marlin Gonzalez Base excess Calc (Bld) [Moles/Vol] -4.1000 mmol/L Critically low -2.0-2.[address] [facility] Comment on above: Performed By: #### A BG ####[facility] [address]inswp[address] [place] [address]Dr. Marlin Gonzalez BIPAP PRESSURE Normal [facility] Comment on above: Performed By: #### A BG ####[facility] Wilrwoqkwo3318[address] [place], [place] [address]Dr. Marlin Gonzalez CO2 [Moles/Vol] 44.7 mmol/L Critically high 23.0-28.0 [facility] Comment on above: Performed By: #### A BG ####[facility] Nbgljsgvet895[address] [place], [place] [address]Dr. Marlin Gonzalez CPAP Normal [facility] Comment on above: Performed By: #### A BG ####[facility] Mxvepsyhqb6779[address] [place], [place] [address]Dr. Marlin Gonzalez FIO2 Normal [facility] Comment on above: Performed By: #### A BG ####[facility] Syuzjttrhd0910[address] [place], [place] [address]Dr. Marlin Gonzalez HCO3 (Bld) [Moles/Vol] 21.3 mmol/L Critically low 22.0-26. [address] [facility] Comment on above: Performed By: #### A BG ####[facility] Lzefklouyq2287[address] [place], [place] [address]Dr. Marlin Gonzalez LPM 2 Normal [facility] Comment on above: Performed By: #### A BG ####[facility] Rzurjsoltx795[address] [place], [place] [address]Dr. Marlin Gonzalez MINUTE VOLUME Normal [facility] Comment on above: Performed By: #### A BG ####[facility] Ffhpxrxjzs024[address] [place], [place] [address]Dr. Marlin Gonzalez Oxygen (Bld) [Partial pressure] 73.5 mm[Hg] Critically low 80.0-100.0 [facility] Comment on above: Performed By: #### A BG ####[facility] Xsdphhrmqa922[address] [place], [place] [address]Dr. Marlin Gonzalez Oxygen saturation in Blood 94.9 % Critically low 95.0-100.0 [facility] Comment on above: Performed By: #### A BG ####[facility] Qlanxorkfz7403 [place] [address]Dr. Marlin Gonzalez PCO2 36.8 mmHg Normal 35.0-45.0 [facility] Comment on above: Performed By: #### A BG ####[facility] Jmiupizyxk5672 [place] [address]Dr. Marlin Gonzalez PEEP [facility] Comment on above: Performed By: #### A BG ####[facility] Irwauyxxma8820 [place] [address]Dr. Marlin Gonzalez pH (Bld) 7.370 [pH] Normal 7.350-7.450 [facility] Comment on above: Performed By: #### A BG ####[facility] Uurfmrxsfk897[address] [place], [place] [address]Dr. Marlin Gonzalez PIP [facility] Comment on above: Performed By: #### A BG ####[facility] Kqnfnnytjj510362 [address] [place], [place] [address]Dr. Marlin Gonzalez PS [facility] Comment on above: Performed By: #### A BG ####[facility] Bqogsmlxyf4199 [place] [address]Dr. Marlin Gonzalez PUNCTURE SITE RR [facility] Comment on above: Performed By: #### A BG ####[facility] Mqedmozvrc217[address] [place], [place] [address]Dr. Marlin Gonzalez RATE [facility] Comment on above: Performed By: #### A BG ####[facility] Xiypvyksuf216[address] [place], [place] [address]Dr. Marlin Gonzalez VENT MODE [facility] Comment on above: Performed By: #### A BG ####[facility] Dqiudixbar4157 [place] [address]Dr. Marlin Gonzalez [place] [facility] Comment on above: Performed By: #### A BG ####[facility] Mgcstiuuia1500[address] [place], [place] [address]Dr. Marlin Gonzalez BNPon 08-31-2021 Natriuretic peptide B (Bld) [Mass/Vol] 95261.0 pg/mL Critically high <=900.0 [facility] Comment on above: Performed By: #### B FACT CHECKER, CMP ####[facility] Ofbmjzolgb3904[address] [place], [place] [address]Dr. Marlin Carlos CBC AUTO DIFFon 08-31-2021 BASO # 0.0 103/ul Normal 0.0-0.[address] [facility] Comment on above: Performed By: #### C BC ####[facility] Vsjtmqvgon640[address] [place], [place] [address]Dr. Marlin Gonzalez Basophils/100 WBC (Bld) 0.2 % Normal 0.2-2.0 [facility] Comment on above: Performed By: #### C BC ####[facility] Nwcbwxbmvj0484[address] [place], [place] [address]Dr. Katherinearmando Gonzalez EO # 0.2 103/ul Normal 0.0-0.[address] [facility] Comment on above: Performed By: #### C BC ####[facility] Fpjovnqbzp774[address] [place], [place] [address]Dr. Marlin Gonzalez Eosinophils/100 WBC (Bld) 2.3 % Normal 0.9-7.[address] [facility] Comment on above: Performed By: #### C BC ####[facility] Rfyvqllblq6800[address] [place], [place] [address]Dr. Marlin Carlos Erythrocyte distribution width (RBC) [Ratio] 15.1 % Critically high 11.0-15.[address] [facility] Comment on above: Performed By: #### C BC ####[facility] Snodkxpkbw1200[address] [place], [place] [address]Dr. Marlin Gonzalez Hematocrit (Bld) [Volume fraction] 30.0 % Critically low 36.0-48.[address] [facility] Comment on above: Performed By: #### C BC ####[facility] Dshayrmcwc060[address] [place], [place] [address]Dr. Marlin Gonzalez Hemoglobin (Bld) [Mass/Vol] 9.7 g/dL Critically low 12.0-16.[address] [facility] Comment on above: Performed By: #### C BC ####[facility] Cbxxgsnisl0169[address] [place], [place] [address]DrLucia Gonzalez IG # 0.02 10e3/ul Normal 0.00-0.[address] [facility] Comment on above: Performed By: #### C BC ####[facility] Myefmorzfg6233 [place] [address]DrLucia Gonzalez IG % 0.2 % Normal 0.0-0.[address] [facility] Comment on above: Performed By: #### C BC ####[facility] Awizgrulib6650 [place] [address]DrLucia Gonzalez LYMPH # 1.5 103/ul Normal 1.2-3.[address] [facility] Comment on above: Performed By: #### C BC ####[facility] Lnroxoycmi0411 [place] [address]DrLucia Gonzalez Lymphocytes/100 WBC (Bld) 16.6 % Critically low 20.5-60.[address] [facility] Comment on above: Performed By: #### C BC ####[facility] Iwtoufdfhl7183 [place] [address]DrLucia Gonzalez MANUAL DIFF REQ NO Normal [facility] Comment on above: Performed By: #### C BC ####[facility] Ulyfwnbtow1707 [place] [address]DrLucia Gonzalez MCH (RBC) [Entitic mass] 30.7 pg Normal 26.7-34.[address] [facility] Comment on above: Performed By: #### C BC ####[facility] Tzryjpuiku1411 [place] [address]DrLucia Gonzalez MCHC (RBC) [Mass/Vol] 32.3 g/dL Normal 29.9-35.[address] [facility] Comment on above: Performed By: #### C BC ####[facility] Qxvwpmujcw7650 [place] [address]DrLucia Gonzalez MCV (RBC) [Entitic vol] 94.9 fL Normal 81.0-99.0 [facility] Comment on above: Performed By: #### C BC ####[facility] Jnutascnnv9524 [place] [address]DrLucia Gonzalez MONO # 0.6 103/ul Normal 0.3-0.[address] [facility] Comment on above: Performed By: #### C BC ####[facility] Gjlpkrivdk7[address] [place] [id number]. Marlin Gonzalez Monocytes/100 WBC (Bld) 6.5 % Normal 1.7-12.0 [facility] Comment on above: Performed By: #### C BC ####[facility] Amqpzfmvmz4[address] [place], [place] [id number]. Marlin Gonzalez NEUT # 6.9 103/ul Critically high 1.4-6.[address] [facility] Comment on above: Performed By: #### C BC ####[facility] Pfmjfdjklv857[address] [place], [place] [address]Dr. Marlin Gonzalez Neutrophils/100 WBC (Bld) 74.2 % Normal 43.0-75.[address] [facility] Comment on above: Performed By: #### C BC ####[facility] Tnzeumuehp1988[address] [place], [place] [address]Dr. Marlin Gonzalez Platelet mean volume (Bld) [Entitic vol] 11.0 fL Normal 9.5-13.[address] [facility] Comment on above: Performed By: #### C BC ####[facility] Feleivcten[address] [place], [place] [id number]. Marlin Gonzalez PLT 221 103/ul Normal 150-450 [facility] Comment on above: Result Comment: plat elet clumps seen but platelet count adequate Performed By: #### C BC ####[facility] Skvqjihfwa0596 [place] [id number]. Marlin Gonzalez RBC 3.16 106/ul Critically low 4.20-5.40 [facility] Comment on above: Performed By: #### C BC ####[facility] Ahxqnpwfzj[address] [place], [place] [address]Dr. Marlin Gonzalez WBC 9.3 103/ul Normal 4.0-11.0 [facility] Comment on above: Performed By: #### C BC ####[facility] Zndrgdlazl9[address] [place], [place] [id number]. Marlin Gonzalez ECHO LIMITED STUDYon 022 ECHO LIMITED STUDY Normal [facility] POINT OF CARE GLUCOSEon 08-11 Glucose [Mass/Vol] 335 mg/dL Critically high 74-106 [facility] Comment on above: Performed By: #### P OCGLUC ####[facility] Qnixnrswql0158 [place] [id number]. Marlin Gonzalez Glucose [Mass/Vol] 208 mg/dL Critically high 74-106 [facility] Comment on above: Performed By: #### P OCGLUC ####[facility] Bfgbntyvlw8199 [place] [address]Dr. Marlin Gonzalez Glucose [Mass/Vol] 182 mg/dL Critically high 74-106 [facility] Comment on above: Performed By: #### P OCGLUC ####[facility] Atmwzmeljj8534 [place] [address]Dr. Marlin Gonzalez Glucose [Mass/Vol] 101 mg/dL Normal 74-[address] [facility] Comment on above: Performed By: #### P OCGLUC ####[facility] Vogobzrkgq6218 [place] [address]Dr. Marlin Gonzalez PROF 14(COMP METB)on 022 Albumin [Mass/Vol] 3.1 g/dL Critically low 3.4-5.0 [facility] Comment on above: Performed By: #### B FACT CHECKER, CMP ####[facility] Saqtqibgjs8794 [place] [address]Dr. Marlin Gonzalez Albumin/Globulin [Mass ratio] 0.9 {ratio} Normal [facility] Comment on above: Performed By: #### B FACT CHECKER, CMP ####[facility] Eehfvhcosq2798 [place] [address]Dr. Marlin Gonzalez ALP [Catalytic activity/Vol] 98 U/L Normal 46-[address] [facility] Comment on above: Performed By: #### B FACT CHECKER, CMP ####[facility] Ecswsayxge8598 [place] [address]Dr. Marlin Gonzalez ALT [Catalytic activity/Vol] 30 U/L Normal 14-[address] [facility] Comment on above: Performed By: #### B FACT CHECKER, CMP ####[facility] Vdgguxclbc0529 [place] [address]Dr. Marlin Gonzalez Anion gap [Moles/Vol] 14.4 mmol/L Normal Th e [facility] Comment on above: Performed By: #### B FACT CHECKER, CMP ####[facility] Uoyzragffa4129 [place] [address]Dr. Marlin Gonzalez AST [Catalytic activity/Vol] 29 U/L Normal 15-37 [facility] Comment on above: Performed By: #### B FACT CHECKER, CMP ####[facility] Irpwueafum0839[address] [place], [place] [address]Dr. Marlin Gonzalez Bilirubin [Mass/Vol] 0.3 mg/dL Normal 0.2-1.[address] [facility] Comment on above: Performed By: #### B FACT CHECKER, CMP ####[facility] Rqldjnjpec1235[address] [place], [place] [address]Dr. Marlin Gonzalez Calcium [Mass/Vol] 8.9 mg/dL Normal 8.5-10.[address] [facility] Comment on above: Performed By: #### B FACT CHECKER, CMP ####[facility] Rjhxxiesbh9424[address] [place], [place] [address]Dr. Marlin Carlos Chloride [Moles/Vol] 99 mmol/L Normal 98-[address] [facility] Comment on above: Performed By: #### B FACT CHECKER, CMP ####[facility] Bxasgxlszi9626[address] [place], [place] [address]Dr. Marlin Gonzalez CO2 [Moles/Vol] 24.7 mmol/L Normal 21.0-32.0 [facility] Comment on above: Performed By: #### B FACT CHECKER, CMP ####[facility] Nfunsmnihk9469[address] [place], [place] [address]Dr. Marlin Gonzalez Creatinine [Mass/Vol] 3.79 mg/dL Critically high 0.55-1.[address] [facility] Comment on above: Performed By: #### B FACT CHECKER, CMP ####[facility] Plehvaxjlm6[address] [place], [place] [address]Dr. Marlin Carlos EGFR-AF ANDORRAN 14 mL/min/1.73m2 Critically low >=[address] [facility] Comment on above: Performed By: #### B FACT CHECKER, CMP ####[facility] Yqjyrgxlnk4340 [place] [address]Dr. Katherinearmando Carlos EGFR-NON AF ANDORRAN 12 mL/min/1.73m2 Critically low >=[address] [facility] Comment on above: Performed By: #### B FACT CHECKER, CMP ####[facility] Twmdwxksyl2567[address] [place], [place] [address]Dr. Katherinearmando Carlos Globulin (S) [Mass/Vol] 3.3 g/dL Normal T [facility] Comment on above: Performed By: #### B FACT CHECKER, CMP ####[facility] Qquahjzalt8057[address] [place], [place] [address]Dr. Marlin Gonzalez Glucose [Mass/Vol] 106 mg/dL Normal 74-[address] [facility] Comment on above: Performed By: #### B FACT CHECKER, CMP ####[facility] Tqnezvgnba4813[address] [place], [place] [address]Dr. Marlin Gonzalez Potassium [Moles/Vol] 5.1 mmol/L Normal 3.5-5.[address] [facility] Comment on above: Performed By: #### B FACT CHECKER, CMP ####[facility] Htfvszcyvt827[address] [place], [place] [address]Dr. Marlin Carlos Protein [Mass/Vol] 6.4 g/dL Normal 6.4-8.[address] [facility] Comment on above: Performed By: #### B FACT CHECKER, CMP ####[facility] Rlgugjnlik645[address] [place], [place] [address]Dr. Marlin Gonzalez Sodium [Moles/Vol] 133 mmol/L Critically low 136-145 Th [facility] Comment on above: Performed By: #### B FACT CHECKER, CMP ####[facility] Bzdmjsldwi7567[address] [place], [place] [address]Dr. Marlin Gonzalez Urea nitrogen [Mass/Vol] 71.0 mg/dL Critically high 7.0-18.[address] [facility] Comment on above: Performed By: #### B FACT CHECKER, CMP ####[facility] Zjytspiwpn3025[address] [place], [place] [address]Dr. Marlin Gonzalez Urea nitrogen/Creatinine [Mass ratio] 18.7 mg/mg Normal [facility] Comment on above: Performed By: #### B FACT CHECKER, CMP ####[facility] Mzzuupvggy7733[address] [place], [place] [address]Dr. Marlin Gonzalez XR CHEST 1 Von 08-31-2021 XR CHEST 1 V Normal [facility] BNPon 08-30-2021 Natriuretic peptide B (Bld) [Mass/Vol] 38059.0 pg/mL Critically high <=900.0 [facility] Comment on above: Performed By: #### B FACT CHECKER, CMP ####[facility] Nzjmhnvmmj0229[address] [place], [place] [address]Dr. Marlin Gonzalez CBC AUTO DIFFon 08-30-2021 BASO # 0.0 103/ul Normal 0.0-0.[address] [facility] Comment on above: Performed By: #### C BC ####[facility] Uuzwhihlme1309[address] [place], [place] [address]Dr. Marlin Gonzalez Basophils/100 WBC (Bld) 0.2 % Normal 0.2-2.0 [facility] Comment on above: Performed By: #### C BC ####[facility] Xwjvewounb7099[address] [place], [place] [address]Dr. Marlin Gonzalez EO # 0.0 103/ul Normal 0.0-0.[address] [facility] Comment on above: Performed By: #### C BC ####[facility] Lupnteywrt9727[address] [place], [place] [address]Dr. Marlin Gonzalez Eosinophils/100 WBC (Bld) 0.0 % Critically low 0.9-7.0 [facility] Comment on above: Performed By: #### C BC ####[facility] Hghzrxfimr3377[address] [place], [place] [address]Dr. Marlin Gonzalez Erythrocyte distribution width (RBC) [Ratio] 14.8 % Normal 11.0-15.[address] [facility] Comment on above: Performed By: #### C BC ####[facility] Junolfxkae332[address] [place], [place] [address]Dr. Marlin Gonzalez Hematocrit (Bld) [Volume fraction] 30.1 % Critically low 36.0-48.[address] [facility] Comment on above: Performed By: #### C BC ####[facility] Qatwnnzppe8903 [place] [address]DrLucia Marlin Gonzalez Hemoglobin (Bld) [Mass/Vol] 9.7 g/dL Critically low 12.0-16.[address] [facility] Comment on above: Performed By: #### C BC ####[facility] Mdrzcjhlec422[address] [place], [place] [address]DrLucia Murphyarmando Gonzalez IG # 0.03 10e3/ul Normal 0.00-0.[address] [facility] Comment on above: Performed By: #### C BC ####[facility] Realmhmafe7585[address] [place], [place] [address]DrLucia Gonzalez IG % 0.5 % Normal 0.0-0.[address] [facility] Comment on above: Performed By: #### C BC ####[facility] Zeipqeoxox4584[address] [place], [place] [address]DrLucia Gonzalez LYMPH # 0.7 103/ul Critically low 1.2-3.[address] [facility] Comment on above: Performed By: #### C BC ####[facility] Oagtnevbli9789[address] [place], [place] [address]DrLucia Marlin Gonzalez Lymphocytes/100 WBC (Bld) 11.9 % Critically low 20.5-60.[address] [facility] Comment on above: Performed By: #### C BC ####[facility] Ypfnbvkgtn3214[address] [place], [place] [address]DrLucia Gonzalez MANUAL DIFF REQ NO Normal [facility] Comment on above: Performed By: #### C BC ####[facility] Kbyhbcnjay6029[address] [place], [place] [address]DrLucia Gonzalez MCH (RBC) [Entitic mass] 30.3 pg Normal 26.7-34.[address] [facility] Comment on above: Performed By: #### C BC ####[facility] Lkrgefmbjb107[address] [place], [place] [address]DrLucia Gonzalez MCHC (RBC) [Mass/Vol] 32.2 g/dL Normal 29.9-35.[address] [facility] Comment on above: Performed By: #### C BC ####[facility] Lgtfcmwvxr589[address] [place], [place] [address]DrLucia Gonzalez MCV (RBC) [Entitic vol] 94.1 fL Normal 81.0-99.0 [facility] Comment on above: Performed By: #### C BC ####[facility] Sorbfdnwfp6527[address] [place], [place] [address]DrLucia Gonzalez MONO # 0.4 103/ul Normal 0.3-0.[address] [facility] Comment on above: Performed By: #### C BC ####[facility] Faiwczwwzn9801[address] [place], [place] [address]DrLucia Gonzalez Monocytes/100 WBC (Bld) 6.8 % Normal 1.7-12.0 [facility] Comment on above: Performed By: #### C BC ####[facility] Ibizqdtzpp8509[address] [place], [place] [address]DrLucia Gonzalez NEUT # 4.6 103/ul Normal 1.4-6.[address] [facility] Comment on above: Performed By: #### C BC ####[facility] Qgasvgwmzx3634[address] [place], [place] [address]DrLucia Gonzalez Neutrophils/100 WBC (Bld) 80.6 % Critically high 43.0-75.[address] [facility] Comment on above: Performed By: #### C BC ####[facility] Yfrmzvyawr3318[address] [place], [place] [address]DrLucia Gonzalez Platelet mean volume (Bld) [Entitic vol] 10.0 fL Normal 9.5-13.[address] [facility] Comment on above: Performed By: #### C BC ####[facility] Mubnbacufq630[address] [place], [place] [address]DrLucia Gonzalez PLT 244 103/ul Normal 150-450 [facility] Comment on above: Performed By: #### C BC ####[facility] Pqideqysxg9435[address] [place], [place] [address]DrLucia Gonzalez RBC 3.20 106/ul Critically low 4.20-5.[address] [facility] Comment on above: Performed By: #### C BC ####[facility] Ehvdsgentz7211[address] [place], [place] [address]Dr. Marlin Gonzalez WBC 5.7 103/ul Normal 4.0-11.[address] [facility] Comment on above: Performed By: #### C BC ####[facility] Vksbdqlldj1360[address] [place], [place] [address]Dr. Marlin Gonzalez POINT OF CARE GLUCOSEon 08-11 Glucose [Mass/Vol] 121 mg/dL Critically high 74-106 [facility] Comment on above: Performed By: #### P OCGLUC ####[facility] Fgrthjkirc9930[address] [place], [place] [address]Dr. Marlin Gonzalez Glucose [Mass/Vol] 109 mg/dL Critically high 74-106 [facility] Comment on above: Performed By: #### P OCGLUC ####[facility] Kharqeosrw928[address] [place], [place] [address]Dr. Marlin Gonzalez Glucose [Mass/Vol] 71 mg/dL Critically low 74-106 [facility] Comment on above: Performed By: #### P OCGLUC ####[facility] Mwxdlmiozo0013[address] [place], [place] [address]Dr. Marlin Gonzalez Glucose [Mass/Vol] 192 mg/dL Critically high 74-106 [facility] Comment on above: Performed By: #### P OCGLUC ####[facility] Cranboiyjy729[address] [place], [place] [address]Dr. Marlin Gonzalez PROF 14(COMP METB)on 022 Albumin [Mass/Vol] 2.9 g/dL Critically low 3.4-5.0 [facility] Comment on above: Performed By: #### B FACT CHECKER, CMP ####[facility] Cylfbkywib2827[address] [place], [place] [address]Dr. Marlin Gonzalez Albumin/Globulin [Mass ratio] 0.9 {ratio} Normal [facility] Comment on above: Performed By: #### B FACT CHECKER, CMP ####[facility] Tirudwlcgc4680[address] [place], [place] [address]Dr. Marlin Gonzalez ALP [Catalytic activity/Vol] 102 U/L Normal 46-116 [facility] Comment on above: Performed By: #### B FACT CHECKER, CMP ####[facility] Eobxclqhgx9100[address] [place], [place] [address]Dr. Marlin Gonzalez ALT [Catalytic activity/Vol] 28 U/L Normal 14-59 [facility] Comment on above: Performed By: #### B FACT CHECKER, CMP ####[facility] Fopdubarsy548[address] [place], [place] [address]Dr. Marlin Gonzalez Anion gap [Moles/Vol] 14.9 mmol/L Normal [facility] Comment on above: Performed By: #### B FACT CHECKER, CMP ####[facility] Tvzhutzbwh5220[address] [place], [place] [address]Dr. Marlin Gonzalez AST [Catalytic activity/Vol] 16 U/L Normal 15-[address] [facility] Comment on above: Performed By: #### B FACT CHECKER, CMP ####[facility] Dynarlbnjr300[address] [place], [place] [address]Dr. Marlin Gonzalez Bilirubin [Mass/Vol] 0.3 mg/dL Normal 0.2-1.0 [facility] Comment on above: Performed By: #### B FACT CHECKER, CMP ####[facility] Chlakzjihi9475[address] [place], [place] [address]Dr. Marlin Gonzalez Calcium [Mass/Vol] 8.9 mg/dL Normal 8.5-10.1 [facility] Comment on above: Performed By: #### B FACT CHECKER, CMP ####[facility] Uljqqaonjx[address] [place], [place] [address]Dr. Marlin Gonzalez Chloride [Moles/Vol] 98 mmol/L Normal 98-107 [facility] Comment on above: Performed By: #### B FACT CHECKER, CMP ####[facility] Kcosqm[address] [place], [place] [address]Dr. Katherinearmando Gonzalez CO2 [Moles/Vol] 23.0 mmol/L Normal 21.0-32.0 [facility] Comment on above: Performed By: #### B FACT CHECKER, CMP ####[facility] [address]swudxwnbx[address] [place] [id number]. Marlin oGnzalez Creatinine [Mass/Vol] 3.99 mg/dL Critically high 0.55-1.[address] [facility] Comment on above: Performed By: #### B FACT CHECKER, CMP ####[facility] Rrtttftwaq[address] [place], [place] [id number]. Marlin Gonzalez EGFR-AF ANDORRAN 13 mL/min/1.73m2 Critically low >=[address] [facility] Comment on above: Performed By: #### B FACT CHECKER, CMP ####[facility] Chpxehotii[address] [place], [place] [id number]. Marlin Gonzalez EGFR-NON AF ANDORRAN 11 mL/min/1.73m2 Critically low >=[address] [facility] Comment on above: Performed By: #### B FACT CHECKER, CMP ####[facility] Dsmdmnswdb807[address] [place], [place] [address]Dr. Marlin Gonzalez Globulin (S) [Mass/Vol] 3.4 g/dL Normal [facility] Comment on above: Performed By: #### B FACT CHECKER, CMP ####[facility] Juhsunzgwz[address] [place], [place] [address]Dr. Marlin Gonzalez Glucose [Mass/Vol] 243 mg/dL Critically high 74-106 [facility] Comment on above: Performed By: #### B FACT CHECKER, CMP ####[facility] Tawnzgzuxb[address] [place], [place] [address]Dr. Marlin Gonzalez Potassium [Moles/Vol] 4.9 mmol/L Normal 3.5-5.[address] [facility] Comment on above: Performed By: #### B FACT CHECKER, CMP ####[facility] Qxoqzhwqea[address] [place], [place] [id number]. Marlin Gonzalez Protein [Mass/Vol] 6.3 g/dL Critically low 6.4-8.2 [facility] Comment on above: Performed By: #### B FACT CHECKER, CMP ####[facility] Gsehyzsgjb[address] [place], [place] [address]Dr. Marlin Gonzalez Sodium [Moles/Vol] 131 mmol/L Critically low 136-145 [facility] Comment on above: Performed By: #### B FACT CHECKER, CMP ####[facility] Ykpklysqds4234 [place] [phone]. Marlin Gonzalez Urea nitrogen [Mass/Vol] 66.0 mg/dL Critically high 7.0-18.0 [facility] Comment on above: Performed By: #### B FACT CHECKER, CMP ####[facility] Ifuqsrknsg4805 [place] [phone]. Marlin Gonzalez Urea nitrogen/Creatinine [Mass ratio] 16.5 mg/mg Normal [facility] Comment on above: Performed By: #### B FACT CHECKER, CMP ####[facility] Tgkgjdxjhz7884 [place] [phone]. Marlin Gonzalez XR CHEST 2 Von 08-30-2021 XR CHEST 2 V Normal [facility] BNPon 08-29-2021 Natriuretic peptide B (Bld) [Mass/Vol] 09376.0 pg/mL Critically high <=900.0 [facility] Comment on above: Result Comment: repe ated Performed By: #### C MP, BNP, CMADM ####[facility] [address]yxjjjtvp[address] [place] [address]Dr. Marlin Gonzalez CARDIAC JOSSIE 3-6on 2 CK [Catalytic activity/Vol] 58 U/L Normal 26-[address] [facility] Comment on above: Performed By: #### C MREP ####[facility] Qnvfsacfta[address] [place] [address]Dr. Marlin Carlos CK.MB [Mass/Vol] 2.02 ng/mL Normal <=3.60 [facility] Comment on above: Performed By: #### C MREP ####[facility] Mhoglxibrw9099 [place] [address]Dr. Marlin Gonzalez HSTROP 21.3 pg/mL Normal 4.0-51.3 [facility] Comment on above: Result Comment: CUT- OFF POINTS HAVE BEEN ESTABLISHED BASED ON THE FOURTH UNIVERSAL DEFINITIONS OF MYOCARDIALINFARCTION. THE UPPER REFERENCE LIMIT (URL) OF TROPONIN, DEFINED THE 99TH PERCENTILE OFcTnI DISTRIBUTION IN A REFERENCE POPULATION, HAS BEEN CONFIRMED THE DECISION THRESHOLDFOR SC DIAGNOSIS. Performed By: #### C MREP ####[facility] [address] [place], [place] [address]Mm. Marlin Gonzalez CK [Catalytic activity/Vol] 71 U/L Normal 26-[address] [facility] Comment on above: Performed By: #### C MREP ####[facility] Dafurlslkm0307 [place], [place] [address]At. Marlin Gonzalez CK.MB [Mass/Vol] 2.07 ng/mL Normal <=3.60 [facility] Comment on above: Performed By: #### C MREP ####[facility] Tnnmgzhrfe8791 [place] [phone]. Marlin Gonzalez HSTROP 23.6 pg/mL Normal 4.0-51.3 [facility] Comment on above: Result Comment: CUT- OFF POINTS HAVE BEEN ESTABLISHED BASED ON THE FOURTH UNIVERSAL DEFINITIONS OF MYOCARDIALINFARCTION. THE UPPER REFERENCE LIMIT (URL) OF TROPONIN, DEFINED THE 99TH PERCENTILE OFcTnI DISTRIBUTION IN A REFERENCE POPULATION, HAS BEEN CONFIRMED THE DECISION THRESHOLDFOR SC DIAGNOSIS. Performed By: #### C MREP ####[facility] Msuhlvdgab10[address] [place] [phone]. Marlin Gonzalez CARDIAC JOSSIE ADMITon 022 CK [Catalytic activity/Vol] 63 U/L Normal 26-[address] [facility] Comment on above: Performed By: #### C MP, BNP, CMADM ####[facility] Xtdlugjnqa9337 [place] [phone]. Marlin Gonzalez CK.MB [Mass/Vol] 2.23 ng/mL Normal <=3.60 [facility] Comment on above: Performed By: #### C MP, BNP, CMADM ####[facility] Ayvcitvbrm6498 [place] [phone]. Marlin Gonzalez HSTROP 28.3 pg/mL Normal 4.0-51.3 [facility] Comment on above: Result Comment: CUT- OFF POINTS HAVE BEEN ESTABLISHED BASED ON THE FOURTH UNIVERSAL DEFINITIONS OF MYOCARDIALINFARCTION. THE UPPER REFERENCE LIMIT (URL) OF TROPONIN, DEFINED THE 99TH PERCENTILE OFcTnI DISTRIBUTION IN A REFERENCE POPULATION, HAS BEEN CONFIRMED THE DECISION THRESHOLDFOR SC DIAGNOSIS. Performed By: #### C MP, BNP, CMADM ####[facility] Uswlbnkmbw19[address] [place] [address]Dr. Marlin Gonzalez GHASSAN 175 ng/mL Critically high 9-[address] [facility] Comment on above: Performed By: #### C MP, BNP, CMADM ####[facility] Ealwhzpdkm[address] [place] [address]Dr. Marlin Gonzalez CBC AUTO DIFFon 08-29-2021 BASO # 0.0 103/ul Normal 0.0-0.[address] [facility] Comment on above: Performed By: #### C BC ####[facility] Jvqltuvpcl37[address] [place] [address]Dr. Marlin Gonzalez Basophils/100 WBC (Bld) 0.4 % Normal 0.2-2.0 [facility] Comment on above: Performed By: #### C BC ####[facility] Upjvbyvrcb[address] [place], [place] [address]Dr. Marlin Gonzalez EO # 0.2 103/ul Normal 0.0-0.[address] [facility] Comment on above: Performed By: #### C BC ####[facility] Xdwpwsyoso[address] [place], [place] [address]Dr. Marlin Gonzalez Eosinophils/100 WBC (Bld) 2.8 % Normal 0.9-7.[address] [facility] Comment on above: Performed By: #### C BC ####[facility] Okcscyehxt18[address] [place], [place] [address]Dr. Marlin Gonzalez Erythrocyte distribution width (RBC) [Ratio] 14.9 % Normal 11.0-15.[address] [facility] Comment on above: Performed By: #### C BC ####[facility] Jsituriewh859[address] [place], [place] [address]Dr. Marlin Gonzalez Hematocrit (Bld) [Volume fraction] 31.9 % Critically low 36.0-48.[address] [facility] Comment on above: Performed By: #### C BC ####[facility] Ambiujcsnw[address] [place], [place] [address]Dr. Marlin Gonzalez Hemoglobin (Bld) [Mass/Vol] 10.2 g/dL Critically low 12.0-16.0 [facility] Comment on above: Performed By: #### C BC ####[facility] Nnvrjvdext7564 [place] [address]DrLucia Gonzalez IG # 0.04 10e3/ul Critically high 0.00-0.[address] [facility] Comment on above: Performed By: #### C BC ####[facility] Awshmupqjl[address] [place] [address]Dr. Marlin Gonzalez IG % 0.5 % Normal 0.0-0.[address] [facility] Comment on above: Performed By: #### C BC ####[facility] Uhvbihwryp324[address] [place], [place] [address]DrLucia Gonzalez LYMPH # 1.1 103/ul Critically low 1.2-3.8 [facility] Comment on above: Performed By: #### C BC ####[facility] Ahcwqxfenl[address] [place], [place] [address]DrLucia Gonzalez Lymphocytes/100 WBC (Bld) 14.9 % Critically low 20.5-60.[address] [facility] Comment on above: Performed By: #### C BC ####[facility] Wadjwqrqfd[address] [place], [place] [address]DrLucia Gonzalez MANUAL DIFF REQ NO Normal [facility] Comment on above: Performed By: #### C BC ####[facility] Ddxvzhbptj[address] [place], [place] [address]DrLucia Gonzalez MCH (RBC) [Entitic mass] 30.0 pg Normal 26.7-34.0 [facility] Comment on above: Performed By: #### C BC ####[facility] Mjzbeafacn[address] [place], [place] [address]DrLucia Gonzalez MCHC (RBC) [Mass/Vol] 32.0 g/dL Normal 29.9-35.2 [facility] Comment on above: Performed By: #### C BC ####[facility] Lnfzmoebon314[address] [place], [place] [address]DrLucia Gonzalez MCV (RBC) [Entitic vol] 93.8 fL Normal 81.0-99.0 [facility] Comment on above: Performed By: #### C BC ####[facility] Eoqbooeozo23[address] [place], [place] [address]DrLucia Marlin Gonzalez MONO # 0.7 103/ul Normal 0.3-0.[address] [facility] Comment on above: Performed By: #### C BC ####[facility] Jyayseobge[address] [place], [place] [address]DrLucia Gonzalez Monocytes/100 WBC (Bld) 9.7 % Normal 1.7-12.0 [facility] Comment on above: Performed By: #### C BC ####[facility] Vgisdzaluy[address] [place], [place] [address]DrLucia Murphyarmando Carlos NEUT # 5.4 103/ul Normal 1.4-6.[address] [facility] Comment on above: Performed By: #### C BC ####[facility] Jzdqmvefzr[address] [place], [place] [address]DrLucia Gonzalez Neutrophils/100 WBC (Bld) 71.7 % Normal 43.0-75.[address] [facility] Comment on above: Performed By: #### C BC ####[facility] Uhanqcageu56[address] [place], [place] [address]DrLucia Gonzalez Platelet mean volume (Bld) [Entitic vol] 10.1 fL Normal 9.5-13.[address] [facility] Comment on above: Performed By: #### C BC ####[facility] Opsxzacbnq[address] [place], [place] [address]DrLucia Gonzalez PLT 263 103/ul Normal 150-450 [facility] Comment on above: Performed By: #### C BC ####[facility] Ydydncvhud[address] [place], [place] [address]DrLucia Gonzalez RBC 3.40 106/ul Critically low 4.20-5.[address] [facility] Comment on above: Performed By: #### C BC ####[facility] Fiultffhxm098[address] [place], [place] [address]DrLucia Gonzalez WBC 7.5 103/ul Normal 4.0-11.[address] [facility] Comment on above: Performed By: #### C BC ####[facility] Aqmhmqrgju[address] [place] [address]Dr. Marlin Gonzalez CULTURE BLOODon 08-29-2021 Microscopic examination of blood, culture Culture Observations: NO GROWTH AT 5 DAYS. Normal [facility] Comment on above: Performed By: #### B LDCX2 ####[facility] Esfxkpfgyg8[address] [place] [address]Dr. Marlin Gonzalez Performed By: #### B LDCX1 ####[facility] Jqunuynmts32[address] [place] [address]Dr. Marlin Gonzalez CULTURE URINEon 08-29-2021 CULTURE URINE Culture Observations : LIGHT GROWTH OF MIXED GENITAL MARIANNA. NO POTENTIAL PATHOGENS SEEN. Normal [facility] Comment on above: Performed By: #### U RCX ####[facility] Iaesbhywdb[address] [place], [place] [address]Dr. Marlin Gonzalez Covid-19 PCR (CVDTBH)on 08-11 SARS-CoV-2 (COVID-19) RNA MADISON+probe Ql (Unsp spec) Not detected Normal NOT DETECTED [facility] Comment on above: Result Comment: When diagnostic testing is negative, the possibility of a false negative should be considered inthe context of a patient's recent exposures and the presence of clinical signs and symptomsconsistent with SARS-CoV-2.This test is not yet approved or cleared by the [place] FDA. When there are no FDA-approved or cleared tests available, and other criteria are met, FDA can make tests available under an emergency access mechanism called an Emergency Use Authorization (EUA). The EUA for this test is supported by the [place] of Health and Human Service's declaration that circumstances exist to justify the emergency use of in vitro diagnostics for the detection and/or diagnosis of the virus that causes COVID-19. This EUA will remain in effect for the duration of the COVID-19 declaration justifying emergency of IVDs, unless it is terminated or revoked by the FDA (after which the test may no longer be used). Performed By: #### C VDTBH ####[facility] Uqemvhmnxu[address] [place] [address]Dr. Marlin Gonzalez ER URINE PROFILEon 2 Bilirubin Ql (U) Negative Normal NEGATIVE [facility] Comment on above: Performed By: #### U MICRO, ERUR ####[facility] Twodlraqwi368[address] [place], [place] [address]Dr. Marlin Gonzalez Clarity (U) CLEAR Normal CLEAR [facility] Comment on above: Performed By: #### U MICRO, ERUR ####[facility] Swthubechw[address] [place], [place] [address]Dr. Marlin Gonzalez Color (U) LT. YELLOW Normal YELLOW [facility] Comment on above: Performed By: #### U MICRO, ERUR ####[facility] Juollbbrvv[address] [place], [place] [address]Dr. Marlin Gonzalez ERUAHD A micrscopic examina tion will be performed if indicated. Normal [facility] Comment on above: Performed By: #### U MICRO, ERUR ####[facility] Obfrvqjkic54[address] [place], [place] [address]Dr. Marlin Gonzalez Glucose Ql (U) Negative Normal NEGATIVE [facility] Comment on above: Performed By: #### U MICRO, ERUR ####[facility] Ukrojodjqa[address] [place], [place] [address]Dr. Marlin Gonzalez Hemoglobin Ql (U) Negative Normal NEGATIVE [facility] Comment on above: Performed By: #### U MICRO, ERUR ####[facility] Wlohinzzrt[address] [place], [place] [address]Dr. Marlin Gonzalez Ketones Ql (U) Negative Normal NEGATIVE [facility] Comment on above: Performed By: #### U MICRO, ERUR ####[facility] Ahfulfowhv[address] [place], [place] [address]Dr. Marlin Gonzalez LEUKOCYTES SMALL Abnormal NEGATIVE [facility] Comment on above: Performed By: #### U MICRO, ERUR ####[facility] Dlaguiureq045[address] [place], [place] [address]Dr. Marlin Gonzalez Nitrite Ql (U) Negative Normal NEGATIVE [facility] Comment on above: Performed By: #### U MICRO, ERUR ####[facility] Oaefvmfteb8106 [place] [address]Dr. Marlin Gonzalez pH (U) 6.0 [pH] Normal 5-[address] [facility] Comment on above: Performed By: #### U MICRO, ERUR ####[facility] Hnzucjjosp2109 [place] [address]Dr. Marlin Gonzalez Protein (U) [Mass/Vol] 100 mg/dL Abnormal NEGAT SHEA/ TRACE [facility] Comment on above: Performed By: #### U MICRO, ERUR ####[facility] Ssx[address]qzvkxv74[address] [place], [place] [address]Dr. Marlin Gonzalez SPEC GRAVITY 1.020 Normal 1.005-<=1.[address] [facility] Comment on above: Performed By: #### U MICRO, ERUR ####[facility] Jubpjtqpii[address] [place], [place] [address]Dr. Marlin Gonzalez UR MICRO IND INDICATED Normal [facility] Comment on above: Performed By: #### U MICRO, ERUR ####[facility] Aodnebfdqn15[address] [place], [place] [address]Dr. Marlin Gonzalez Urobilinogen Qn (U) 0.2 {Ryan'U}/dL Normal 0.2 - 1. [address] [facility] Comment on above: Performed By: #### U MICRO, ERUR ####[facility] Bfzrsorkhn[address] [place], [place] [address]Dr. Marlin Gonzalez LACTATE/LACTIC ACIDon 2021 Lactate [Moles/Vol] 1.1 mmol/L Normal 0.4-1.[address] [facility] Comment on above: Performed By: #### L ACT ####[facility] Ebzthqppmq[address] [place], [place] [address]Dr. Marlin Gonzalez POINT OF CARE GLUCOSEon 08-11 Glucose [Mass/Vol] 359 mg/dL Critically high 74-106 [facility] Comment on above: Performed By: #### P OCGLUC ####[facility] Wh[address]hjxcrd[address] [place], [place] [address]Dr. Marlin Gonzalez PROF 14(COMP METB)on 022 Albumin [Mass/Vol] 3.2 g/dL Critically low 3.4-5.0 [facility] Comment on above: Performed By: #### C MP, BNP, CMADM ####[facility] Wbxoeapxlb0196 [place] [address]Dr. Marlin Gonzalez Albumin/Globulin [Mass ratio] 0.9 {ratio} Normal [facility] Comment on above: Performed By: #### C MP, BNP, CMADM ####[facility] Rkawecaian8050 [place] [address]Dr. Marlin Gonzalez ALP [Catalytic activity/Vol] 107 U/L Normal 46-[address] [facility] Comment on above: Performed By: #### C MP, BNP, CMADM ####[facility] Swvspqbrbo9792 [place] [address]Dr. Marlin Gonzalez ALT [Catalytic activity/Vol] 35 U/L Normal 14-[address] [facility] Comment on above: Performed By: #### C MP, BNP, CMADM ####[facility] Qhxkypqxwd3372 [place] [address]Dr. Marlin Gonzalez Anion gap [Moles/Vol] 14.7 mmol/L Normal [facility] Comment on above: Performed By: #### C MP, BNP, CMADM ####[facility] Qrjwvctibw5054 [place] [address]Dr. Marlin Gonzalez AST [Catalytic activity/Vol] 21 U/L Normal 15-[address] [facility] Comment on above: Performed By: #### C MP, BNP, CMADM ####[facility] Sydvuxldnh6440 [place] [address]Dr. Marlin Gonzalez Bilirubin [Mass/Vol] 0.3 mg/dL Normal 0.2-1.[address] [facility] Comment on above: Performed By: #### C MP, BNP, CMADM ####[facility] Jlferorqzg2648 [place] [address]Dr. Marlin Gonzalez Calcium [Mass/Vol] 9.6 mg/dL Normal 8.5-10.[address] [facility] Comment on above: Performed By: #### C MP, BNP, CMADM ####[facility] Emxermfmpe0858 [place] [address]Dr. Marlin Gonzalez Chloride [Moles/Vol] 101 mmol/L Normal 98-[address] [facility] Comment on above: Performed By: #### C MP, BNP, CMADM ####[facility] Pwdacrwsol9002 [place] [address]Dr. Marlin Gonzalez CO2 [Moles/Vol] 24.9 mmol/L Normal 21.0-32.[address] [facility] Comment on above: Performed By: #### C MP, BNP, CMADM ####[facility] Zphuvwuolb7877 [place] [address]Dr. Marlin Gonzalez Creatinine [Mass/Vol] 3.73 mg/dL Critically high 0.55-1.[address] [facility] Comment on above: Performed By: #### C MP, BNP, CMADM ####[facility] Apdhnotiuc[address] [place], [place] [address]Dr. Marlin Gonzalez EGFR-AF ANDORRAN 14 mL/min/1.73m2 Critically low >=[address] [facility] Comment on above: Performed By: #### C MP, BNP, CMADM ####[facility] Xhddcuebrs[address] [place], [place] [address]Dr. Marlin Gonzalez EGFR-NON AF ANDORRAN 12 mL/min/1.73m2 Critically low >=[address] [facility] Comment on above: Performed By: #### C MP, BNP, CMADM ####[facility] Ejuwqnulkd[address] [place], [place] [address]Dr. Marlin Gonzalez Globulin (S) [Mass/Vol] 3.5 g/dL Normal [facility] Comment on above: Performed By: #### C MP, BNP, CMADM ####[facility] Rcdpmfjllw54[address] [place], [place] [address]Dr. Marlin Gonzalez Glucose [Mass/Vol] 190 mg/dL Critically high 74-106 [facility] Comment on above: Performed By: #### C MP, BNP, CMADM ####[facility] Kyvwptvayf412[address] [place], [place] [address]Dr. Marlin Gonzalez Potassium [Moles/Vol] 4.6 mmol/L Normal 3.5-5.1 [facility] Comment on above: Performed By: #### C MP, BNP, CMADM ####[facility] Afzzypzaas1062 [place] [address]Dr. Marlin Gonzalez Protein [Mass/Vol] 6.7 g/dL Normal 6.4-8.2 [facility] Comment on above: Performed By: #### C MP, BNP, CMADM ####[facility] Qoeubmhuri8791 [place] [address]Dr. Marlin Gonzalez Sodium [Moles/Vol] 136 mmol/L Normal 136-145 [facility] Comment on above: Performed By: #### C MP, BNP, CMADM ####[facility] Azpgvpbqtx1482 [place] [address]Dr. Marlin Gonzalez Urea nitrogen [Mass/Vol] 59.0 mg/dL Critically high 7.0-18.[address] [facility] Comment on above: Performed By: #### C MP, BNP, CMADM ####[facility] Okytkilgzd335[address] [place], [place] [address]Dr. Marlin Gonzalez Urea nitrogen/Creatinine [Mass ratio] 15.8 mg/mg Normal [facility] Comment on above: Performed By: #### C MP, BNP, CMADM ####[facility] Ikyfowxvba2632 [place] [address]Dr. Marlin Gonzalez PROTIMEon 08-29-2021 INR Coag (PPP) [Relative time] 1.14 {INR} Normal [facility] Comment on above: Performed By: #### P TT, PT ####[facility] Zimrnuydzg[address] [place], [place] [address]Dr. Marlin Gonzalez INR GUIDELINES SEE BELOW Normal [facility] Comment on above: Result Comment: WALI RED INR: 2.0 - 3.0 CONDITIONS NOT LISTED BELOW 2.5 - 3.5 FOR PROSTHETIC HEART VALVE REPLACEMENT 2.5 - 3.5 RECURRENT THROMBOSIS Performed By: #### P TT, PT ####[facility] Qwcxocqeiq[address] [place], [place] [address]Dr. Marlin Gonzalez PT Coag (PPP) [Time] 12.2 s Critically high 9.0-11.6 [facility] Comment on above: Performed By: #### P TT, PT ####[facility] Cpxlvgpwzf50[address] [place], [place] [address]Dr. Katherinearmando Gonzalez PTTon 08-29-2021 aPTT Coag (Bld) [Time] 31.3 s Normal 22.3-36.2 [facility] Comment on above: Performed By: #### P TT, PT ####[facility] [address]zsvkeoi6[address] [place] [address]Dr. Marlin Gonzalez URINE MICROSCOPIC ONLYon BACTERIA TRACE Abnormal NONE SEEN [facility] Comment on above: Performed By: #### U MICRO, ERUR ####[facility] Mmlhlfqiub[address] [place], [place] [address]Dr. Marlin Gonzalez Bacteria identified Cx Nom (U) INDICATED Normal [facility] Comment on above: Performed By: #### U MICRO, ERUR ####[facility] Xgqenysaln[address] [place], [place] [address]Dr. Marlin Gonzalez CAST NONE SEEN Normal NONE SEEN [facility] Comment on above: Performed By: #### U MICRO, ERUR ####[facility] Tagabyeysc[address] [place], [place] [address]Dr. Marlin Gonzalez Crystals LM Nom (Urine sed) NONE SEEN Normal NONE SEEN [facility] Comment on above: Performed By: #### U MICRO, ERUR ####[facility] Dyvhryxgwi6[address] [place], [place] [address]Dr. Marlin Gonzalez Epithelial cells LM Ql (Urine sed) FEW Abnormal NONE SEEN /RARE [facility] Comment on above: Performed By: #### U MICRO, ERUR ####[facility] [address]idzhdmhje[address] [place], [place] [address]Dr. Katherinelan Gonzalez MUCOUS NONE SEEN Normal NONE SEEN [facility] Comment on above: Performed By: #### U MICRO, ERUR ####[facility] Wqezgubuto024[address] [place], [place] [address]Dr. Marlin Gonzalez RBC NONE SEEN Abnormal 0-[address] [facility] Comment on above: Performed By: #### U MICRO, ERUR ####[facility] [address] [place], [place] [address]Ze. Marlin Gonzalez WBC 10-20 Abnormal NONE SEEN [facility] Comment on above: Performed By: #### U MICRO, ERUR ####[facility] Upurzxjldq35[address] [place], [place] [address]Ag. Marlin Gonzalez XR CHEST 1 Von 08-29-2021 XR CHEST 1 V Normal [facility] Q - CULTURE,URINE,ROUTINEon 07-23-2021 CULTURE, URINE, ROUTINE SEE NOTE Abnormal N braxtonern [employer] Comment on above: Order Comment: [facility] Testing performed at: [employer] [facility], [address] [place] [address], [address] [place] [address], [phone], Substitute School Nurse: Lane Rae MD [facility] Collection Date/Time: [id number] [facility] Results Received Date/Time: [facility] Reported Date/Time: [id number] Result Comment: CULT URE, URINE, ROUTINE Micro Number: [id number] Test Status: Final Specimen Source: Not given Specimen Quality: Adequate Result: Greater than 100,000 CFU/mL of Escherichia coli E.coli INT TRINITY AMOX/CLAVULANATE S 8 AMPICILLIN R >=32 AMP/SULBACTAM I 16 CEFAZOLIN NR <=4 2 CEFEPIME S <=1 CEFTAZIDIME S <=1 CEFTRIAXONE S <=1 CIPROFLOXACIN R >=4 GENTAMICIN S <=1 IMIPENEM S <=0.25 LEVOFLOXACIN R >=8 NITROFURANTOIN S <=16 PIP/TAZOBACTAM S <=4 TOBRAMYCIN S <=1 TRIMETHOPRIM/SULFA S <=20 S=Susceptible I=Intermediate R=Resistant * = Not Tested NR = Not Reported NN = See Therapy Comments THERAPY COMMENTS Note 1: For infections other than uncomplicated UTI caused by E. coli, K. pneumoniae or P. mirabilis: Cefazolin is resistant if TRINITY > or = 8 mcg/mL. (Distinguishing susceptible versus intermediate for isolates with TRINITY < or = 4 mcg/mL requires additional testing.) Note 2: For uncomplicated UTI caused by E. coli, K. pneumoniae or P. mirabilis: Cefazolin is susceptible if TRINITY <32 mcg/mL and predicts susceptible to the oral agents cefaclor, cefdinir, cefpodoxime, cefprozil, cefuroxime, cephalexin and loracarbef. Performed By: #### 6 [id number] #### [facility] Default [address] [place] [address] PTH INTACTon 07-12-2021 PTH, Intact 50 pg/mL Normal 15-[address] [facility] Comment on above: Performed By: #### P THINT ####[facility] [address] [place], [place] [address]Dr. Marlin Gonzalez UA RANDOMon 07-12-2021 Bilirubin Ql (U) Negative Normal NEGATIVE [facility] Comment on above: Performed By: #### U A ####[facility] Odkuveloz[address] [place], [place] [address]Dr. Marlin Gonzalez Clarity (U) CLEAR Normal CLEAR [facility] Comment on above: Performed By: #### U A ####[facility] Nzz[address] [place], [place] [address]Dr. Marlin Gonzalez Color (U) LT. YELLOW Normal YELLOW [facility] Comment on above: Performed By: #### U A ####[facility] C[address] [place], [place] [address]Dr. Marlin Gonzalez Glucose Ql (U) Negative Normal NEGATIVE [facility] Comment on above: Performed By: #### U A ####[facility] D[address]ich[address] [place], [place] [address]Dr. Marlin Gonzalez Hemoglobin Ql (U) Negative Normal NEGATIVE [facility] Comment on above: Performed By: #### U A ####[facility] Tgtvexmtii[address] [place], [place] [address]Dr. Marlin Gonzalez Ketones Ql (U) Negative Normal NEGATIVE [facility] Comment on above: Performed By: #### U A ####[facility] [address] [place], [place] [address]Dr. Marlin Gonzalez LEUKOCYTES TRACE Abnormal NEGATIVE [facility] Comment on above: Performed By: #### U A ####[facility] [address] [place] [address]Dr. Marlin Gonzalez Nitrite Ql (U) Negative Normal NEGATIVE [facility] Comment on above: Performed By: #### U A ####[facility] E[address] [place] [address]Dr. Marlin Gonzalez pH (U) 5.5 [pH] Normal 5-9 [facility] Comment on above: Performed By: #### U A ####[facility] [address] [place], [place] [address]Dr. Marlin Gonzalez SPEC GRAVITY 1.020 Normal 1.005-<=1.[address] [facility] Comment on above: Performed By: #### U A ####[facility] [address] [place], [place] [address]Dr. Marlin Gonzalez UA PROTEIN 100 mg/dl Abnormal NEGATIVE/ TRACE [facility] Comment on above: Performed By: #### U A ####[facility] Fngwdud[address] [place], [place] [address]Dr. Marlin Gonzalez Urobilinogen Qn (U) 0.2 {Ryan'U}/dL Normal 0.2 - 1. 0 [facility] Comment on above: Performed By: #### U A ####[facility] K[address]omi[address] [place], [place] [address]Dr. Marlin Gonzalez URINE T PROTEIN CREAT RATIOo n 07-12-2021 UR PROT CREAT RAT 0.20 Normal [facility] Comment on above: Performed By: #### U RTPCR ####[facility] Dmsye[address]vwsl[address] [place], [place] [address]Dr. Marlin Gonzalez UR TOTAL PROTEIN >12.0 Normal <=12.0 [facility] Comment on above: Performed By: #### U RTPCR ####[facility] Wqzpheyjpr[address] [place], [place] [address]Dr. Marlin Gonzalez URINE CREAT 58.89 mg/dL Normal 20.00-300.00 [facility] Comment on above: Performed By: #### U RTPCR ####[facility] [address] [place] [address]Dr. Marlin Gonzalez FERRITINon 07-11-2021 Ferritin [Mass/Vol] 2286.0 ng/mL Critically high 8.0-252.[address] [facility] Comment on above: Performed By: #### F ERR, VITAD, FETIBC ####[facility] [address] [place] [address]Dr. Marlin Gonzalez HEMOGRAM AND PLATELon 2021 Hematocrit (Bld) [Volume fraction] 32.8 % Critically low 36.0-48.[address] [facility] Comment on above: Performed By: #### H H ####[facility] [address]jqy[address]bv[address] [place], [place] [address]Dr. Marlin Gonzalez Hemoglobin (Bld) [Mass/Vol] 10.3 g/dL Critically low 12.0-16.[address] [facility] Comment on above: Performed By: #### H H ####[facility] N[address] [place], [place] [address]Dr. Marlin Gonzalez MCH (RBC) [Entitic mass] 30.0 pg Normal 26.7-34.[address] [facility] Comment on above: Performed By: #### H H ####[facility] J[address] [place], [place] [address]Dr. Marlin Gonzalez MCHC (RBC) [Mass/Vol] 31.4 g/dL Normal 29.9-35.[address] [facility] Comment on above: Performed By: #### H H ####[facility] A[address] [place], [place] [address]Dr. Marlin Gonzalez MCV (RBC) [Entitic vol] 95.6 fL Normal 81.0-99.0 [facility] Comment on above: Performed By: #### H H ####[facility] [address]mb[address]cs[address] [place], [place] [address]Dr. Marlin Gonzalez PLT 241 103/ul Normal 150-450 [facility] Comment on above: Performed By: #### H H ####[facility] [address]nsxy[address] [place], [place] [address]Dr. Marlin Gonzalez RBC 3.43 106/ul Critically low 4.20-5.[address] [facility] Comment on above: Performed By: #### H H ####[facility] [address] [place] [address]Dr. Marlin Gonzalez WBC 8.5 103/ul Normal 4.0-11.[address] [facility] Comment on above: Performed By: #### H H ####[facility] [address] [place] [address]Dr. Marlin Gonzalez IRON AND TIBCon 07-11-2021 % SATURATION 27.1 % Normal [facility] Comment on above: Performed By: #### F ERR, VITAD, FETIBC ####[facility] [address] [place] [address]Dr. Marlin Gonzalez Iron [Mass/Vol] 55.0 ug/dL Normal 50.0-170.0 [facility] Comment on above: Performed By: #### F ERR, VITAD, FETIBC ####[facility] [address] [place] [address]Dr. Marlin Gonzalez TIBC DIRECT 203.0 ug/dL Critically low 250.0-450.[address] [facility] Comment on above: Performed By: #### F ERR, VITAD, FETIBC ####[facility] [address]cl[address] [place] [address]Dr. Marlin Carlos PROF 14(COMP METB)on 022 Albumin [Mass/Vol] 3.1 g/dL Critically low 3.4-5.0 [facility] Comment on above: Performed By: #### C MP, URIC ####[facility] [address] [place] [address]Dr. Katherinearmando Gonzalez Albumin/Globulin [Mass ratio] 0.8 {ratio} Normal [facility] Comment on above: Performed By: #### C MP, URIC ####[facility] [address] [place] [address]Dr. Marlin Gonzalez ALP [Catalytic activity/Vol] 127 U/L Critically high 46-116 [facility] Comment on above: Performed By: #### C MP, URIC ####[facility] [address] [place] [address]Dr. Marlin Gonzalez ALT [Catalytic activity/Vol] 23 U/L Normal 14-59 [facility] Comment on above: Performed By: #### C MP, URIC ####[facility] [address] [place] [address]Dr. Katherinearmando Gonzalez Anion gap [Moles/Vol] 12.6 mmol/L Normal Th [facility] Comment on above: Performed By: #### C MP, URIC ####[facility] Kodulixv[address] [place], [place] [address]Dr. Marlin Gonzalez AST [Catalytic activity/Vol] 17 U/L Normal 15-[address] [facility] Comment on above: Performed By: #### C MP, URIC ####[facility] [address] [place], [place] [address]Dr. Marlin Gonzalez Bilirubin [Mass/Vol] 0.3 mg/dL Normal 0.2-1.[address] [facility] Comment on above: Performed By: #### C MP, URIC ####[facility] [address]swzn[address] [place], [place] [address]Dr. Marlin Gonzalez Calcium [Mass/Vol] 9.6 mg/dL Normal 8.5-10.1 [facility] Comment on above: Performed By: #### C MP, URIC ####[facility] [address]auy[address] [place], [place] [address]Dr. Marlin Gonzalez Chloride [Moles/Vol] 103 mmol/L Normal 98-107 [facility] Comment on above: Performed By: #### C MP, URIC ####[facility] V[address]vgprfbkr[address] [place], [place] [address]Dr. Marlin Gonzalez CO2 [Moles/Vol] 24.7 mmol/L Normal 21.0-32.0 [facility] Comment on above: Performed By: #### C MP, URIC ####[facility] Avdkbakkcu[address] [place], [place] [address]Dr. Marlin Gonzalez Creatinine [Mass/Vol] 2.41 mg/dL Critically high 0.55-1.02 [facility] Comment on above: Performed By: #### C MP, URIC ####[facility] [address] [place] [address]Dr. Marlin Gonzalez EGFR-AF ANDORRAN 24 mL/min/1.73m2 Critically low >=[address] [facility] Comment on above: Performed By: #### C MP, URIC ####[facility] [address] [place] [address]Dr. Marlin Gonzalez EGFR-NON AF ANDORRAN 20 mL/min/1.73m2 Critically low >=[address] [facility] Comment on above: Performed By: #### C MP, URIC ####[facility] [address] [place] [address]Dr. Marlin Gonzalez Globulin (S) [Mass/Vol] 4.1 g/dL Normal [facility] Comment on above: Performed By: #### C MP, URIC ####[facility] S[address]rxrusn[address] [place], [place] [address]Dr. Marlin Gonzalez Glucose [Mass/Vol] 143 mg/dL Critically high 74-106 [facility] Comment on above: Performed By: #### C MP, URIC ####[facility] R[address]rdoltlb[address] [place], [place] [address]Dr. Marlin Gonzalez Potassium [Moles/Vol] 4.3 mmol/L Normal 3.5-5.[address] [facility] Comment on above: Performed By: #### C MP, URIC ####[facility] [address]jeihpi[address] [place], [place] [address]Dr. Marlin Gonzalez Protein [Mass/Vol] 7.2 g/dL Normal 6.4-8.[address] [facility] Comment on above: Performed By: #### C MP, URIC ####[facility] J[address]ptt[address]vm[address] [place], [place] [address]Dr. Marlin Gonzalez Sodium [Moles/Vol] 136 mmol/L Normal 136-[address] [facility] Comment on above: Performed By: #### C MP, URIC ####[facility] Nutgznxbnq[address] [place], [place] [address]Dr. Marlin Gonzalez Urea nitrogen [Mass/Vol] 46.0 mg/dL Critically high 7.0-18.0 [facility] Comment on above: Performed By: #### C MP, URIC ####[facility] [address] [place] [address]Dr. Marlin Gonzalez Urea nitrogen/Creatinine [Mass ratio] 19.1 mg/mg Normal [facility] Comment on above: Performed By: #### C MP, URIC ####[facility] [address] [place] [address]Dr. Marlin Gonzalez URIC ACID SERUMon 07-11-2021 Urate [Mass/Vol] 7.5 mg/dL Critically high 2.6-6.0 [facility] Comment on above: Performed By: #### C MP, URIC ####[facility] [address] [place] [address]Dr. Marlin Gonzalez VITAMIN D 25 OHon 07-11-2021 VIT D 25-OH 28.0 ng/mL Normal [facility] Comment on above: Performed By: #### F ERR, VITAD, FETIBC ####[facility] [address] [place] [address]Dr. Marlin Gonzalez VIT D RANGES SEE BELOW Normal [facility] Comment on above: Result Comment: <20 ng/mL Vit D deficient 20 - <30 ng/mL Vit D insufficient 30 - 100 ng/mL Vit D sufficient >100 ng/mL Potential Toxicity Performed By: #### F ERR, VITAD, FETIBC ####[facility] [address] [place] [address]Dr. Marlin Gonzalez Coding Summaryon 2021 Coding Summary HTMLBase 64 TrgsfvcyIZy2aFm+PGhlYWQ+ MH0YQPYiB50smIObiV7MG3dC AR0RGDSCZNTAWO8CEE8foUO8 LHaeX2RejvBn IdbrdGEpXN29OOz4ZVH2dYzk GZoeoM7ghSDxK5x1JbMtHD63 aT15MRdbESDqQhG2SxXillfc bWFy B9pbWcCnyRDtDkt+PHRhYmxl IHdpZHRoPScxMDAlJyBzdHls TT8vJf8oSTAqQPJeeVsubHQr OiBj d6viWNXbVNlmLW6xlOwnU7Sj aQN0VRJbs5i8Hv58aKZ+PHRk JVU2bTwbMSjsh980AsAoe9zj IDM3 lDEwNTmzLEH7P35df1U0FYCw HOGyWRJ8gJE9aH3lgOwuvejs I7HkfETsUoT0CFV7rJHfaP3s bGln tairiS8bHjy+V77ISZ0QIFTW ZM3JInx4J5ZhFpvglFZ+PC90 FRJgKL69bJRhwFPld8zncHe5 JzEw AFCiIZW3aNmjFLfrk3TlFVHu J44ccNWho0S7CTVmrWgukXOv LwGafEM6vQ8tRJcdldzww0xd dzsn Bzyfg9qquy77fP28R56wLUre IAVsGLZ8OFHlHBXvxRrzds6a iW6mJm6+FSmhv8dpl5pqmVd8 IjIw QRMetlRkbKfkOGJ2t1JnPi43 L9WaeCnjy9ZhPxo5tn69uHHw a0B8mDX5WIgvBCQjkD2gRBwv ZnQ6 JSDlLrSqjC24wJGoEXslJf3g pJjyrXcnFA8tHVAkzduqGMRi hF8aMNBjcGAouCkqZT4bOAMn bjtm i454YmFsVYL6VRQwjYCzO3Vb iQ7gLvIkARLkFIPpG0UjtYQy XYfmB386YUnbFlH9MFLicdNq Y2Fs IZPmdUdaGuF3g9C9Nl1Jd2Ua cpouCKK9VKwyIVAvOxA7NoBm KfO9F2YnOdi6WPIydGxoQO6l J3Bh MYGuoygvvhwntKE7PQYhISFp hX54sTZzKWhhQk9st0I7q388 PCKvFOVsrX25Zx9fwSqoTVBf dCBU gD2upmkug1mrhzkqOrGoLDVq RAd5AQy1GFZbtJhgZjVzMTM5 RaO2QYQ1yVJjaE3rcHvvquut dG9w Oyc+E00oxB0nEWV1RLK6znie NOJzsnEuRY74MM96V4JqHwad dGFibGU+OWMksyEecNbiKP6i YmFj q9lht4IuJNxoB4KeMZAnQOwx Avq0HMPmBXP6oBI2dR4xGLNm YQzoh3K2vYC3H7PcbtDaqw1y b2xs VALbTNtgV31srZNts9E0GMQx nTV7OTAelZkrDtTjoF10Noq+ BORbqWhbt3KbMjrhs7kbl5yo dGg9 AuOoGOZbsmWbgExyUKN2f7Dr Wg25E06nTZkpNXMvRAZzRDAk IJGalWdvsx2yjV5iXn6+PGNv bCB3 gML7gZ3rUFTvUoZ6RYvoN530 LmAxtOCcOrofw1byc9mvhYh1 BcUfTPQizaXxoPsgBKV0y8Tw Lz48 D92pKBbaRTOjHLLfVXLxIWHe zSfage9mjQ0hHg9+AA9xu2uo wr51uU79cHB+JUYvCAZ2aYuf PSdw YRNnvJ6mTCysNhK2COLrZpLm vV58iVOoSMxeVw5elPqioTmg BV2sRRAjupbgc356RlAom0ts IDEw gOTuTHpbOGR5W50ki1K5VQBn QQVbLPY7tTL0nC3jcRvwrieo bGVmdDsgdmVydGljYWwtYWxp Z246 IHRvcDsnPlBhdGllbnQgTmFt JSn3K0UmIqf4JYFhiGfpOS4n aEQrSDdhHc3ppYxjcKaaON2u NTBp mbdcc890JtVov6xlYAYkxZUa LVyzXAM0R30nx1B4XXXuGEAn MHA8jUT9iO4owXynbypzaNKi dDsg ckHieCewDCknXRatC589YUJy rKhiTeMnvpUyALVaqMJ8WJ16 HA82tXUiy9Y2iQZ2N2DnXQTv bmct nhdslOE2PGBlPDQhoB43Pe1a cYuyOk2qKILoPFU6SXXsrYNe J8KylL8wWbGfOTEfFXFmB0Il eHQt NOmxP109AWkyPeF2DDZoxwLt L1GsRLGsfVjlEsL4b4R0Vp4O M8J4FT73OZ48kATtu4D0hPU7 J3Bh ZJYnbqvlxvaokLV6OIVbATFa oX25Bl5ilNctZa3nSNIeGDY0 AQXatTBaS0VxhW1cKeZuFCJz MDAw P0NhdORnFPphT285IOkoHcO2 DDVcrqTyA1PuNFKioToqWyK7 w6M3Vc5CCMi4VW81NH21rDJs c3R5 qVX6S4RqXTRggobopqbvfKP6 INIwCIMqrE56Mb9ssDusMl1o JWPwYYP8AMTofVMeC4GqyO5d OiAj UOKeJRObS8TfdTNaGJcjZ417 ABgjPhW7CABgtrTlR2WqANGd qPlxQgX5r5W9Lv2FXDWcQD12 IFR5 mQX9WT70WU91E4TbMvuhpFOl bGU+PHRhYmxlIHdpZHRoPScx RYNmGnTdsYzsWE4sIl8rEBRn LWNv kKkwyESvJjAvx9ojRYBhKJvw EG9jaFxwW8CpaEZ2UODoq1u6 Dx06Y20yC3OttWG+PGNvbCB3 aWR0 bW8wHiQtGxD0GWliV549JyGg sSWoIygib7fiy7bwuEb9HnZ4 EAMlsxSslFjwCSN7a2CfVo85 Y29s IHdpZHRoPSIxNSUiIHZhbGln ou2xzI5hUf0+GDSniDW2uPI5 rR7cGnMcHiL7ULqxD972CoRl cCIv Jinny7dpw4ggaJs0EhWdASNi cuEcbLddNDS1y9YzCw18W2Ju nMefo3SdAbg9bg49nERuy6C7 bGU9 I0AxBAZbwedriEXhsCjqFY1v VFReyovoDKWbpB1kQBHfB6e0 TeIbBpG0RUoaN3YpfkB2IOXe cHQg CPwmHFS8U56tw4H2VQZvNGFf CMU3vPV9xY4tbEusfvxktSUz uWlmejHxcSewMOoeBXrkC337 IHRv jZadUDSziR3aJHWyeKYrdEdj DB7uLLMiryzhHoHSE79QExmt LxEDUNPKVM35Y7RrGce9MOWa dHls PZ0geWNkURqsSh2njFxpuLac LS9qFJPwqvvlRRVfjP7aCZCc rDUtzGepAO7tOFOjyhhvb680 OiAx DHG5OJSlxCYxM9FxfM8rAdUd DAMhSSMbV0CgaCMoAOgwD376 DWbqCjZ3MFMrmmYbH3KiZBWb aWdu LuZ5o9J7Gf3cGH5uZG7aTGN4 KA97BT79bEKyn9U7yJP7V8Yp CJMzmiaezvnasLY1ASVhNNDu aW47 bPGkGOuoQr3px5X6b300UGZs RHZbkQ90Dr7arGtzDGXxmFGH cE7wxnhuj2fznxuwItOjBHOy MDt0 FJa1OTXhnYuvHmNhYVS3BtT0 UJT2qFWmnH4wvJxodvnzhG8h Oyc+UsMiHKZhpmS5C9AiZnk0 ZCBz nGqqFO9vfWZdBHxhBw7edIvg rYefNF1nOFZsajiyYIXarZ7g GYVpxWIhpOzxWS4pWVFndoyq b250 IeNpGNS9JNRskJXtD2BgcX1f UgPsJTEnABFkZ7SosLTgXDve Q308HSvjMlH3PAVtxrShV2Aw LWFs sNccPiD7y6O4Cu5HYG7RCBA5 W6EjFzi7ZQCmxBefOA2kmHOb TKmuJv8rfWabmHwsJT8rERSn bjtw EZIfcW3qSTOjvXRunBpgMK3e JGCcswowq480BkVvCXU7SCZx nFTfJ0MblY7mRzTrBVFeVZTh O3Rl aSEzBXmsO768TQocQxM2YCRe keTkS5WqTAJnhLvdAkQ0e9Z1 Ak1SghIrcLpefaS9O4ClRouw dHI+ ZQ87TMEiYA77ySThzJSml4xa kRa0ImRsTZPuFUJ9qMrlCFni a0WqRAMlD01bxHMii1C3TPPr bGxh xFCjGtWaaWY7tZ8zHLfiwnha v6qzwlkzDtykc0rqgg72lF64 K11rPNleEVSoKNPuYWDvKECa bGln ob7ccG9iBs2+ILCiaJD0vBX2 hZ7iBoPxWfL4DSgwQ342YzUu zIPuNzliy1nuf9hisDb2HbDy JSIg svCrrIboUSK6k9EkYe10Z84l IHdpZHRoPSIyMCUiIHZhbGln xd8wsE3cWq5+DF1kh4hfli79 cD48 dHI+ZAAxCEC1bSptDVwfZUKl zL7uIDmzMuY9UPJkMyTthG86 cHUrDXyiCq9rlUbtpNsqIY5s NTBp iexys893ZuBvv3nlKAAieLKv EEivSBM0Q07ja4W2LZTiWTNi WRR9pDQ3hV7sjVlmmlxtaVQu dDsg ilShoAqkFJvfJMtoJ023ZSJm xDrnYeXucGIgQ5smfoHMEM2x OjwvdGQ+HKYgLLZ1eJrxRSpp YWRk uV1aXTEeK8i8SpVvBpV1HXfu N7BcxpO3JYDtlZByCWGjiUVW dC2qfywto6hifqobBdDnEPXv MDt0 JHf2HXPluUhxToAtFAQ4GzU2 YUI5wJXnfT2mySiffsatdX0v Oyc+RklOOjwvdGQ+PHRkIHN0 eWxl IAgbMUIdjC7eJVMjM5a6JhUs LoA9IOchT9TtvyN2RUHgnHTm HJJzhARNtR0ejnvfu9plfitx IzAw MYTcUTj8LZg8FUNtmCnmYrKl TAV6NvG2RJE7cQWjmV5guMhs qpqpiJ5oZmp+TVJOOjwvdGQ+ PHRk FEN1bUsaYUsaLUJarX9rJKUz G0d1JsHwWyX7IMhwG6DekuI5 MRWbaOLrBBCdoEFSpW0bcczg b2xv ncsjXtWsLGFuJXc8KAn7CGTy nGorZdOnEUZ1SkQ1MNC2aRMd aO7ebVycwljhyO2fRng+UGF5 ZXI6 BL99WR14L6IyYugtsWTjpHB+ PHRhYmxlIHdpZHRoPScxMDAl WaHwtHugHG1dYc1vJQNuHHMc bGxh cHN (more content not included)... [facility] Consent Formson 02-21-2021 Consent Forms [id number] [id number]#1.00OTG [facility] Consent Forms [id number] [id number]#1.00OTG [facility] Consent Forms [id number] [id number]#1.00OTG [facility] Discharge Instructionson Discharge Instructions [id number]#1.00OTG [facility] MAGR Preoperative Recordon 0 02-21-2021 MAGR Preoperative Record MAGR Pre-Op Record Summary Primary Physician: Carlo Wyman DO Finalized Date/Time: 02/21/21 13:46:01 Pt. Name: CINTHYA WILSON Jesusita AlexanderB./Sex: 1945 FEMALE Med Rec #: [id number] Physician: Carlo Wyman DO Financial #: [id number] Pt. Type: I Room/Bed: [facility] Admit/Disch: 02/19/21 06:01:00 - 02/20/21 15:31:00 Institution: Pre-Op Case Times MAGR Pre-Care Text: Patient will be optimally prepared for surgery. Patient is free from s/s of injury. Provide information to patient/family related to plan of care. Verify patient allergies. Confirm identity and verify consent before the operative or invasive procedure. Entry 1 Patient Arrival Time 02/19/21 06:10:00 Preop Departure 02/19/21 07:40:00 Last Modified By: Kimberly Ortiz RN 02/21/21 13:45:54 Post-Care Text: Patient is prepared mentally and physically and is ready for surgery. The patient remains free from s/s of injury. Patient/family express understanding of plan of care and participate in decisions affecting his or her perioperrative plan of care. Allergies documented appropriately. Patient identifiers and consent correct. General Comments: Reviewed for the next 24 hours not to do anything that requires concentration. Denies chest pain, shortness of breath or illnessess. Deneis pacemaker/defib. States history of sleep apnea, uses a cpap. Finalized By: Kimberly Ortiz RN Document Signatures Signed By: Kimberly Ortiz RN 02/21/21 13:46 [facility] Outside Recordson 02-21-2021 Outside Records [id number]#1.00OTG TIFF [facility] Outside Records [id number]#1.00OTG TIFF [facility] Provider Orderson 02-21-2021 Provider Orders [id number]#1.00[facility] Strips [id number] [id number]#1.00[facility] BMP [place] 02-20-2021 eGFR Non AA 18 mL/min/1.73m2 Invalid Interpretation Code [facility] Comment on above: Performed By: #### 1 [id number], [id number], [id number], [id number] ####[facility] (DEFAULT)[address] [place] [address] eGFR AA 22 mL/min/1.73m2 Invalid Interpretation Code [facility] Comment on above: Result Comment: Business Project Analyst hero Kidney disease could be indicated at eGFRs of less than 60 ml/min/1.73m2. Kidney Failure is indicated at less than 15 ml/min/1.73m2 Performed By: #### 1 [id number], [id number], [id number], [id number] ####[facility] (DEFAULT)[address] [place] [address] Anion gap [Moles/Vol] 17.0 mmol/L Normal 5.0-19.0 [facility] Comment on above: Performed By: #### 1 [id number], [id number], [id number], [id number] ####[facility] (DEFAULT)[address] [place] [address] Calcium [Mass/Vol] 9.0 mg/dL Normal 8.9-10.3 [facility] Comment on above: Performed By: #### 1 [id number], [id number], [id number], [id number] ####[facility] (DEFAULT)[address] [place] [address] Chloride [Moles/Vol] 100 mmol/L Low 101-111 [facility] Comment on above: Performed By: #### 1 [id number], [id number], [id number], [id number] ####[facility] (DEFAULT)[address] [place] [address] CO2 [Moles/Vol] 19 mmol/L Low 21-32 [facility] Comment on above: Performed By: #### 1 [id number], [id number], [id number], [id number] ####[facility] (DEFAULT)[address] [place] [address] Creatinine [Mass/Vol] 2.61 mg/dL High 0.60-1.30 [facility] Comment on above: Performed By: #### 1 [id number], [id number], [id number], [id number] ####[facility] (DEFAULT)[address] [place] [address] Glucose [Mass/Vol] 215.0 mg/dL High 74.0-118.0 [facility] Comment on above: Performed By: #### 1 [id number], [id number], [id number], [id number] ####[facility] (DEFAULT)[address] [place] [address] Osmolality 282 mOsm/L Invalid Interpretation Code [facility] Comment on above: Performed By: #### 1 [id number], [id number], [id number], [id number] ####[facility] (DEFAULT)[address] [place] [address] Potassium [Moles/Vol] 5.0 mmol/L Normal 3.6-5.1 [facility] Comment on above: Performed By: #### 1 [id number], [id number], [id number], [id number] ####[facility] (DEFAULT)[address] [place] [address] [place] [address] Sodium [Moles/Vol] 131.0 mmol/L Low 136.0-144.0 [facility] Comment on above: Performed By: #### 1 [id number], [id number], [id number], [id number] ####[facility] (DEFAULT)[address] [place] [address] Urea nitrogen [Mass/Vol] 50 mg/dL High 8-26 [facility] Comment on above: Performed By: #### 1 [id number], [id number], [id number], [id number] ####[facility] (DEFAULT)[address] [place] [address] Urea nitrogen/Creatinine [Mass ratio] 19.0 mg/mg High 4.6-16.2 [facility] Comment on above: Performed By: #### 1 [id number], [id number], [id number], [id number] ####[facility] (DEFAULT)[address] [place] [address] Consultation/Specialist Note on 02-20-2021 Consultation/Specialist Note Patient: CINTHYA WILSON Age: 75 years Sex: FEMALE : 1945 Associated Diagnoses: None Author: JOHN EDEN Basic Information 1 day s/p RT reverse total shoulder arthroplasty (DOS 02/19/21) Subjective pt notes she is doing ok, pain is 6/10, she is eating and drinking although she notes she does not have much of an appetitie, she is hoping to go home today Review of Systems denies chest pain and shortness of breath, denies nausea Health Status Allergies: Allergic Reactions (All) Moderate Lisinopril- Cough. Objective dressing clean dry and intact to right shoulder, nv intact distally of the right arm, kryo cuff intact Impression and Plan d/c home today pending well controlled pain, f/u in office within 10 days of surgery, change dressing 02/21/21. [Electronically Signed on: 02/20/2021 07:15 EST] JOHN EDEN [Verified on: 02/20/2021 07:15 EST] JOHN EDEN Normal [facility] [place] 02-20-2021 Tube Collected Yes Invalid Interpretation Code [facility] Comment on above: Performed By: #### 1 [id number], [id number] #### [facility] (DEFAULT) [address] [place] [address] Performed By: #### 1 [id number] ####[facility] (DEFAULT)[address] [place] [address] Inpatient Patient Summaryon 02-20-2021 Inpatient Patient Summary [address] [address] Patient Discharge Instructions Name: CINTHYA WILSON : 1945 Patient Address: [address] [place] [address] Primary Care Provider: Name: LILY ALDRICH After you are discharged if you find you have any questions, please, call [phone] ext [phone] to speak to a nurse. Discharge Diagnosis: 1:Status post reverse total arthroplasty of right shoulder; 2:Osteoarthritis of right shoulder; 3:Stage 4 chronic kidney disease; 4:CHF (congestive heart failure); 5:COPD (chronic obstructive pulmonary disease); 6:GERD (gastroesophageal reflux disease); 7:Hypertension; 8:Diabetes Prescription Information: If you have been given a prescription for narcotics, seek immediate medical attention if you have any difficulty breathing or any sudden status changes such as confusion and sleepiness. If you or anyone you know is experiencing suicidal thoughts, mental health, alcohol and/or drug addiction problems; contact the [facility] 02/09 Crisis Hotline -Text 4HOPE to 619058. If you received any narcotics, sedation, or any other medication that causes drowsiness for the next 24 hours, unless otherwise directed: ? Do not drive a car. ? Do not operate machinery such as power tools, lawn mowers, drills, sewing machines, or stoves ? Avoid alcoholic beverages and drugs for allergies, nerves, or sleep ? Do not make important personal or business decisions or sign any legal documents [facility] would like to thank you for allowing us to assist you with your healthcare needs. The following includes patient education materials and information regarding your injury/illness. CINTHYA WILSON has been given the following list of follow-up instructions, prescriptions, and patient education materials: Follow-up Instructions With: Address: When: Carlo Wyman [address] [place] [address], [address] [place] [address] Business (1) 02/27/2021 1:15 PM With: Address: When: LILY ALDRICH [facility], [address] [facility] [place], [place] [phone] Business (1) Medications During the course of your visit, your medication list was updated with the most current information. The details of those changes are reflected below: Medications to Continue That Have Not Changed Other Medications acetaminophen (Tylenol 8 HR Arthritis Pain 650 mg oral tablet, extended release) 2 tab(s) Oral Every 8 hours as needed pain. acetaminophen-hydrocodon e (acetaminophen-hydrocodo ne 325 mg-7.5 mg oral tablet) 1 tab(s) Oral Every 4 hours as needed for pain. aspirin (aspirin 81 mg oral capsule) 1 cap(s) Oral every day. do not exceed 48 capsules in 24 hours. atorvastatin (atorvastatin 40 mg oral tablet) 1 tab(s) Oral every day. brexpiprazole (Rexulti 1 mg oral tablet) 1 tab(s) Oral every day. calcium citrate (calcium citrate 950 mg (200 mg elemental calcium) oral tablet) 1 tab(s) Oral every day. carvedilol (carvedilol 12.5 mg oral tablet) 1 tab(s) Oral 2 times a day. cholecalciferol (Vitamin D3 1000 intl units oral capsule) 1 cap(s) Oral every day. citalopram (citalopram 40 mg oral tablet) 1 tab(s) Oral every day. docusate-senna (Stool Softener with Laxative) 1 tab(s) Oral every day. exenatide (Bydureon BCise 2 mg/0.85 mL subcutaneous suspension, extended release) 2 Milligram Subcutaneous every week. furosemide (furosemide 40 mg oral tablet) 1 tab(s) Oral every day. hydrALAZINE (hydrALAZINE 50 mg oral tablet) 1 tab(s) Oral 2 times a day. insulin isophane-insulin regular (NovoLIN 70/30 subcutaneous suspension) 60 unit(s) Subcutaneous 2 times a day. isosorbide mononitrate (isosorbide mononitrate 60 mg oral tablet, extended release) 1 tab(s) Oral once a day (in the morning). multivitamin (Multivitamin, generic) 1 tab(s) Oral every day. omeprazole (omeprazole 40 mg oral delayed release capsule) 1 cap(s) Oral every day. oxyCODONE (oxyCODONE 5 mg oral tablet) 1 tab(s) Oral Every 6 hours as needed for pain. umeclidinium-vilanterol (Anoro Ellipta 62.5 mcg-25 mcg/inh inhalation powder) 1 puff Inhalation every day. It is important to always keep an active list of medications available so that you can share with other providers and manage your medications appropriately. As an additional courtesy, we are also providing you with your final active medications list that you can keep with you. acetaminophen (Tylenol 8 HR Arthritis Pain 650 mg oral tablet, extended release) 2 tab(s) Oral Every 8 hours as needed pain. acetaminophen-hydrocodon e (acetaminophen-hydrocodo ne 325 mg-7.5 mg oral tablet) 1 tab(s) Oral Every 4 hours as needed for pain. aspirin (aspirin 81 mg oral capsule) 1 cap(s) Oral every day. do not exceed 48 capsules in 24 hours. atorvastatin (atorvastatin 40 mg oral tablet) 1 tab(s) Oral every day. brexpiprazole (Rexulti 1 mg oral tablet) 1 tab(s) Or (more content not included)... Normal [facility] POCT Glucose Levelon 022 Glucose [Mass/Vol] 164 mg/dL High 74-118 [facility] Comment on above: Performed By: #### 4 [id number] ####[facility] (DEFAULT)[address] [place] [address] Progress Note - Nurseon 02-10 Progress Note - Nurse Nicola eleanor FSSOLE [Electronically Signed on: 02/20/2021 15:51 EST] Daniela Corbett RN [Verified on: 02/20/2021 15:51 EST] Daniela Corbett RN [facility] Anesthesia Noteon 02-19-2021 Anesthesia Note Patient: WILL WILSON Age: 75 years Sex: FEMALE : 1945 Associated Diagnoses: None Author: Armando Sotomayor MD Postoperative Information Anesthetic utilized: General. Assessment Anesthetic outcome No anesthetic complications noted. Plan Transfer/ Discharge: Patient can be discharged from PACU when criteria met. Condition good. [Electronically Signed on: 02/19/2021 09:50 EST] Armando Sotomayor MD [Verified on: 02/19/2021 09:50 EST] Armando Sotomayor MD [facility] Anesthesia Note Patient: WILL WILSON Age: 75 years Sex: FEMALE : 1945 Associated Diagnoses: None Author: Armando Sotomayor MD Preoperative Information Anesthesia history: Family history. Patient history: No prior anesthesia problems. Review of Systems Constitutional: Negative. Cardiovascular: No Chest Pain. No SOB. Health Status Allergies: Allergic Reactions (All) Moderate Lisinopril- Cough. Current medications: Home Medications (18) Active acetaminophen-hydrocodon e 325 mg-7.5 mg oral tablet 1 tab(s), PRN, PO, q4hr Anoro Ellipta 62.5 mcg-25 mcg/inh inhalation powder 1 puff, INH, Daily aspirin 81 mg oral capsule 81 mg = 1 cap(s), PO, Daily atorvastatin 40 mg oral tablet 40 mg = 1 tab(s), PO, Daily Bydureon BCise 2 mg/0.85 mL subcutaneous suspension, extended release 2 mg, SubQ, qWeek calcium citrate 950 mg (200 mg elemental calcium) oral tablet 950 mg = 1 tab(s), PO, Daily carvedilol 12.5 mg oral tablet 12.5 mg = 1 tab(s), PO, BID citalopram 40 mg oral tablet 40 mg = 1 tab(s), PO, Daily furosemide 40 mg oral tablet 40 mg = 1 tab(s), PO, Daily hydrALAZINE 50 mg oral tablet 50 mg = 1 tab(s), PO, BID isosorbide mononitrate 60 mg oral tablet, extended release 60 mg = 1 tab(s), PO, qAM Multivitamin, generic 1 tab(s), PO, Daily NovoLIN 70/30 subcutaneous suspension 60 unit(s), SubQ, BID omeprazole 40 mg oral delayed release capsule 40 mg = 1 cap(s), PO, Daily Rexulti 1 mg oral tablet 1 mg = 1 tab(s), PO, Daily Stool Softener with Laxative 1 tab(s), PO, Daily Tylenol 8 HR Arthritis Pain 650 mg oral tablet, extended release 1,300 mg = 2 tab(s), PRN, PO, q8hr Vitamin D3 1000 intl units oral capsule 25 mcg = 1 cap(s), PO, Daily Problem list (past medical history): All Problems At risk of pressure sore / SNOMED CT 927994552 / Confirmed Stage 4 chronic kidney disease / SNOMED CT 7149785894 / Confirmed COPD (chronic obstructive pulmonary disease) / SNOMED CT 14130139 / Confirmed CHF (congestive heart failure) / SNOMED CT 83410338 / Confirmed CAD (coronary artery disease) / SNOMED CT 55710617 / Confirmed Diabetes / SNOMED CT 491458281 / Confirmed GERD (gastroesophageal reflux disease) / SNOMED CT 785780750 / Confirmed Hypertension / SNOMED CT 9467702869 / Confirmed DJD (degenerative joint disease) / SNOMED CT 6135783610 / Confirmed Sleep apnea / SNOMED CT 848484920 / Confirmed Histories Family History: No family history items have been selected or recorded. Procedure history: Lumbar discectomy (765323924). Fusion (683644961). Comments: 01/25/2021 14:33 Kimberly Andino RN Neck CTR - carpal tunnel release ([id number]). Comments: 01/25/2021 14:34 Kimberly Andino RN Bilateral section (46335985). Appendectomy (406028088). Abdominal hysterectomy (026016890). Tonsillectomy (418629894). Colonoscopy (482423491). EGD (esophagogastroduodenosc opy) gastric outlet reduction (5550782391). Bilateral cataracts (876528701). Social History Electronic Cigarette/Vaping Assessment Electronic Cigarette Use: Never. Alcohol Assessment Use: Past. Tobacco Assessment Never (less than 100 in lifetime) Tobacco Use:. Substance Abuse Assessment Substance use: Never. . Social & Psychosocial Habits Alcohol 01/25/2021 Alcohol Use: Past Substance Abuse 01/25/2021 Substance use: Never Tobacco 01/25/2021 Smoking tobacco use: Never (less than 100 in l Electronic Cigarette/Vaping 01/25/2021 Electronic Cigarette Use: Never . Physical Examination Pain assessment: Self-reports no pain. General: Alert and oriented. Airway: Mallampati classification: II (soft palate, fauces, uvula visible). Temporomandibular joint mobility: Good. Mouth: Tongue ( Within normal limits ), Teeth ( Fair condtion; pt reports some missing and some chips; denies any loose teeth ). Neck: Trachea ( Patient with somewhat limited neck mobility secondary to PCF ). HENT: Normocephalic. Respiratory: Lungs are clear to auscultation. Cardiovascular: Regular rhythm. Neurologic: Alert, Oriented. Review / Management Laboratory Results Plan [place] [employer]esthesiologists#(ASA) physical status classification: Class III. Anesthetic Preoperative Plan Anesthesia: General. . Anesthetic plan, risks, benefits, and alternatives discussed with the patient and/or family. Patient verbalized understanding. Informed consent was given. Anesthetic technique: General anesthesia, Regional anesthesia, Repeat chemistry this am shows sodium essentialy unchanged at 130 and creatine slightly elevated at 3.3 from 2.9. All questions answered and informed consent obtained. Plan for GA (LMA: patient reports very well controlled GERD. No symptoms) and right interscalene PNB for post op pain. ETT if necessary. . [Electronically Signed on: 02/19/2021 08:21 EST] FullamArmando MD [Verified on: 02/19/2021 08:21 EST] (more content not included)... Normal [facility] Standardon 02-19-2021 eGFR Non AA 14 mL/min/1.73m2 Invalid Interpretation Code [facility] Comment on above: Performed By: #### 1 [id number] #### [facility] (DEFAULT) [address] [place] [address] eGFR AA 16 mL/min/1.73m2 Invalid Interpretation Code [facility] Comment on above: Result Comment: Business Project Analyst hero Kidney disease could be indicated at eGFRs of less than 60 ml/min/1.73m2. Kidney Failure is indicated at less than 15 ml/min/1.73m2 Performed By: #### 1 [id number] #### [facility] (DEFAULT) [address] [place] [address] Anion gap [Moles/Vol] 17.0 mmol/L Normal 5.0-19.0 [facility] Comment on above: Performed By: #### 1 [id number] #### [facility] (DEFAULT) [address] [place] [address] Calcium [Mass/Vol] 9.0 mg/dL Normal 8.9-10.3 [facility] Comment on above: Performed By: #### 1 [id number] #### [facility] (DEFAULT) [address] [place] [address] Chloride [Moles/Vol] 100 mmol/L Low 101-111 [facility] Comment on above: Performed By: #### 1 [id number] #### [facility] (DEFAULT) [address] [place] [address] CO2 [Moles/Vol] 18 mmol/L Low 21-32 [facility] Comment on above: Performed By: #### 1 [id number] #### [facility] (DEFAULT) [address] [place] [address] Creatinine [Mass/Vol] 3.32 mg/dL High 0.60-1.30 [facility] Comment on above: Performed By: #### 1 [id number] #### [facility] (DEFAULT) [address] [place] [address] Glucose [Mass/Vol] 110.0 mg/dL Normal 74.0-118.0 [facility] Comment on above: Performed By: #### 1 [id number] #### [facility] (DEFAULT) [address] [place] [address] Osmolality 279 mOsm/L Invalid Interpretation Code [facility] Comment on above: Performed By: #### 1 [id number] #### [facility] (DEFAULT) [address] [place] [address] Potassium [Moles/Vol] 4.9 mmol/L Normal 3.6-5.1 [facility] Comment on above: Result Comment: Spec imen slightly hemolyzed; results may be adversely affected Performed By: #### 1 [id number] #### [facility] (DEFAULT) [address] [place] [address] Sodium [Moles/Vol] 130.0 mmol/L Low 136.0-144.0 [facility] Comment on above: Performed By: #### 1 [id number] #### [facility] (DEFAULT) [address] [place] [address] Urea nitrogen [Mass/Vol] 61 mg/dL High 8-26 [facility] Comment on above: Performed By: #### 1 [id number] #### [facility] (DEFAULT) [address] [place] [address] Urea nitrogen/Creatinine [Mass ratio] 18.0 mg/mg High 4.6-16.2 [facility] Comment on above: Performed By: #### 1 [id number] #### [facility] (DEFAULT) [address] [place] [address] Coding Summaryon 02-19-2021 Coding Summary HTMLBase 64 LbebzhmtTPo0jVd+PGhlYWQ+ PF6GQZBbU43ieTUphA9QW8tP OD0DUFNFSGDBQZ4ZHS9emSL4 JWgvI5PehaGu GpqroEAjOO96IXh2AGD9vCeu AVeuuG0kuLUvX9v9TvCzUV55 oW25PEdjUVRhUgI8EkNumonx bWFy V7ukCiJdkFEcZdk+PHRhYmxl IHdpZHRoPScxMDAlJyBzdHls JI6dCg0fGQUwZZIpdZfrlFKw OiBj y7dqUCRcLQgsCX1irApfH8Uh aXW2EQUgc5y4Be64dMY+PHRk FPZ7hCrvYSmgh451IhAwk4cc IDM3 bBTbJKcaAOV9G03kb6L3REXc HKVuJVO4iCV0zA1gxMxgdjnx J1WctIUvAoL7VZR0iBRseR9m bGln dfgdhM2rGfv+M70BCD9UIKPK AP4IVtz3A5KwKgboxUH+PC90 VGXxCL41jMHvzKNpt7xqbXx0 JzEw QPZnIBZ7oXvlJMgho8XmSWWh Q99ppQWud8F6INGgbRcyyUFb YsHwdWP7aB8oQYcnpwxlz9vo dzsn Kynka8olri67sA98N85sZNhc BDQkIQR5WPZhHWIinNnbde2x gM3bSb8+LQpfi6aet1prdRk5 IjIw QGVlseQnuKzxMSI3z0TbJb28 Z8HiwZcnv5RuXzs1fp28rJTv f5I0oZY1BMbxCGMwoD3lOWxr ZnQ6 XKTzNhZdsE61kPDyMBgjXb3w xCrfqDyqUP8dNHDfttfsNMPg qF4hFEMndUUmcOsfAQ9yYLZf bjtm h804OsEdAUD3EFGkdOUkQ3Hu tA4nFzWjAMUcFDViF5ZhgJNs ZNnvY579CLehEqR1KNQvcvMu Y2Fs ETCskZovQjB1t9R5Fz8Dh4Dc jcbuWLH4RMehZOPfVrJbSvDk MwI5L1JfIwi6YYEfnFxaON1f J3Bh BDVldqczrryhhBY7SZJoFQKw rJ18sRZuDUpePa0bi4E6y890 XRLwDPYykQ08Vp9faXaaXONw dCBU cO2iuinzc0yrlhkuTrAiZASi UVi4ZCd4MPMpxTphRvFmXFM7 GxI2CIN9fFElvV3wfQgzfted dG9w Oyc+T44rjR7kSIF4QJW6veaq TIQutbMdIO90LV10J6GcBtrh dGFibGU+KLXvzeMlsBsoDQ6x YmFj r5stq4BqTDmrG9VqELPdGZxb Eab9IAOnQSW9gSW6tX7nOHRg HOxdl8U6cSJ7P0ZvxkWrhd2d b2xs UDPiXDzoL14hrAFfv6G7IUMn pIJ0KGZupFyqYmTgjZ06Bgp+ CCAomVawd8BoBtlvd4dee9dg dGg9 PtWsJOYprhUkqQsgNHT0n6Ag Xn06Q03iOXtkGYRpAZCuZPVu YMIvvJoxyl4ynD4jJr3+PGNv bCB3 vEZ5vR9gLDDeXxE8EQcjL466 QuDizMOlBfcfv5xff5ixrHb0 MrHuLZMmsjNwzNfyVPS0a2Tc Lz48 F95xANzjLSEgTBKzNGRiNOEy iEgzwp0mtD0vDf5+ST2fw2kk dn59bP07vIL+THUcYJX4tYif PSdw CSBmsU9wZLfyBhD1IEVrKtHw fP83iIDaNNpwCe8xdOjkmYlj RN4vPMRuelpoc297NnNmy8wj IDEw gKDuDAflHJL1H54wx5Q4REKs PQKkIGN0jRH1kD7ddKndlnbq bGVmdDsgdmVydGljYWwtYWxp Z246 IHRvcDsnPlBhdGllbnQgTmFt PMu3C3CuZzb8OLTtzLjyLE2i kOMoHPnsQn1joQwgwWfmTD0y NTBp tpgib695RlVjp7lgLVUfeAHe QYlcYWP8A13cy1X4FNEsVHGn OJU3lPB2iU5awVplhwepjMHa dDsg skYrsJgiRSumSMzpH724OTCw nQevXmBwlxSoEFOywHI6BQ88 HW36dNSex6D6aZP6E5NgKWEs bmct pgnuoXC4TJCgELWcoG40Rv4w cYcxQu6nQOJvZRB6FZPbuAZi T4PlsE2zYwLuENIeEGRjR4Ik eHQt TEjbM079VFbwZaH7TXDmafLf T7FbOWTrsPlxNyV8y2T5Xm8M O6I3EV15DA72zSTwt7T1sMH3 J3Bh SBUxgrivlrbncTZ8MQRsICNe dQ72Kl9kmJxqOq1rBIAcMUA1 OPSbqDGkX1FxiL6eRdGqGNBl MDAw H0MmlNRrSEhnK676HSabAuD3 SDEtqtPwD8OaBKGbvWxkFtH9 n3V6Hd7MIJv2FN13VH44cEXz c3R5 wXX4B4DaWIBtrgmsuusagBA0 QZMdSZNunO94Jr9buWqnKc0d DIZqYFU2FIQytPIxP6RlcO7g OiAj PDLxGKHgO4VyrUTzTFfuY344 GQbhEwB8BWHxlbLxB0KvTVKk tBadKhI5z4I4Ho1EVBUmAS44 IFR5 eQG8RR12SE44W9YbZyjauHOs bGU+PHRhYmxlIHdpZHRoPScx SIUdCcVcbKgoNO2cPh4cWAAm LWNv rVchgECxTgKzp4fuXRUoKQpz GW6vzUsuD7CfcRL3HPRmr2g7 Us37G37nH2KyrLB+PGNvbCB3 aWR0 fV3nJlEqAvH9TKrmJ737JgMr lOTbOvcwc7wjq6mklJg3AeE3 FHMalpWlaHycRLD9c3QsWy03 Y29s IHdpZHRoPSIxNSUiIHZhbGln sp2kjO3eVa2+FAXjhPA6tPZ3 eK6oKdJdYlX3FXwvJ624JiAw cCIv Cebzo8yhu5nzpEy2UeYwIDEf xoMwoVjnLFR9c3YkCd95F9Ni tErfj8JzJpd4xf09vWCyz6N2 bGU9 M3TbQYLrxvxchFGsfIygWF3r AMBthyiqVOLunK9iGCIpP9y8 RlJnJgB9PNvkH5RhecY5CZBj cHQg YWnnKNI9S47ma6Z4SAEiPGMg QKJ4wUW2jO2tqOjsuzvrpVBp aOjklvFwzNxmDFvrOPvoZ460 IHRv dNsvYVXpeP7xRERcnYGkbUqh JN6kYFOzftzeXoUZL29WDkvg ObTRAKAWXW17W0XpCmk0WLQm dHls YG7rcAVgKVhjSr4ycYgutHrv KF8wUOWlpjmbBKDikL1rHLLz aQZviLrmYO3hINAgugafn318 OiAx XLM9URVkxAIdW1BsaJ9nBzAn FJKsCAMbA0OzeEFkRKehA587 SBfhLiD8IFRojdVhK8WhPDTm aWdu BqY3u4I6Ge6yIO2pXM3zWUD1 CY18XS44bVMyf7Q0dVW1X4Mg EYByepkhuqhqeSS9OVYwVXXr aW47 sBXnCEoaAm8vz9S5s089LJFx UGXxxK06Ef6gvHwzVPYmkRQA xZ2efogpt4ydrnpnSjBnJTLl MDt0 CTp3EHLboIrgNrNrCQO4HnT5 DND0wVVrnJ0aoXuiqthmqR6t Oyc+QjMlDMLdiyH3O2CtDjp7 ZCBz rLikFV5kvNGvGZkqXf1ezRwc nHxxIY6kSVLxdexaKLXgpP8m CMPuiEIchSneLI8jMQXukhth b250 DmZoNYZ4UNLiuEXgA2OzdJ4v XuZpHSSiNXXeH5BiqAZmAVwr W775OVybPjA1SVMpieNeF9Cq LWFs zUneJzP7c3I3Mm3EWO6KEBB6 W4EgEry9ONDoqXonXA9vkVNj PFxpHp6pcEkbvBnkJS4zWGQa bjtw SLAwxU5jLDTxaOQuyKplOS6y XDUdvxhmq204GuRnDEY4BIQj aWYmG8XtjB2eGdJxAELtRQPr O3Rl lLYcZXjrQ559XDamErJ7YTFn zbTbN1YoFKYgpSnnItR7m7C7 Zt9PSCdbbEW+PA53xb20N7Oc Ymxl Vqk2AKMoIYC6kKX7fP8yODDs HRhuq0Y9hYS5I6UfvaRdfq4g g2ymAXFfTWxzZ75xmQPyx8J1 IGVt iAB8DVTqyZqwZwCjsL06Wsl+ TWUdaNcts8FsKswuf5oar6re eYb9ByLhKJQpccDaqIucFBY3 b3Ai Iw60W42oJFbgKAOiBMRhVSFa KGXufQzsqm9jcW7hAv6+PGNv rLW9aPF4wU1jGcFxNlZ1JXrl Z249 KbUrgOMwTmjmq5dqh4btkEi8 ViUsZANrzbBbnRpcSRC8q4Bc Gk73X9JhwLhav8JoSxz2td36 dGQg f1K9tJW9Z3FwCOFzmzxjuCZh eGtuOL4mDRIqsgkgHHActQ5v XKBgI9t9TyLbHiV0CHwqD7Na bnQ6 XXRapQHkZGJbmVXRiI4mkzjy s8mscaqkRbPvDWKvCIq9RKz7 FCJinGkzXfXcVTZ5JuC1OWP1 aWNh kF4upOnscmlpzR5gWfx+UGh5 q8uweEDrAS7hqXQ6ZJ26UQ31 mVNeu1K7aQZ1T2LqWHPgugys cmln wAG9WWFqAMMngW16Uw3yxHzv Xk9yASYaUHV4KCHfsWXtO6Ku bZ3vNlRuKJNqZMFtC7ZimCLr YWxp L846IZehGfU1DHUylfGwX0Xf KGSnuHfnEdK1z4N0Rs1FGM64 RX41VB34vALzu2Z3uVU4Y9Iv ZGRp vakakciizYF2XEPpMJMcuU96 Bu0aqSioIb3hUCOpLIB8VEPj sPBlV4SgdA6zGwRyRKHxEAQl O3Rl kJYaIRebU158CBqcZsH9GLAx coIbX6QsTJRphGbsXoO3z0S4 Mf1DJc61YY94VW58xXZke5V4 bGU9 W5AkIRExdwvhjcygsPD2GUKk JDBfeO88Ru7koHjyGk8lYERb GHO9MGCrzJEvA4GlpR0uRfPz MDAw JHKrM4OxnQUvFDyhB432SEry EgC8SNWvgcXgF0NjTIHxpMzm ZrD9n1U5Ae8GOKdzdoh5O9Go Pjwv dHI+ML56VJDxCY96fWOsqYUx h3prvLl1XjWeTOSzQDQ1xBrv KTxnr4PbBTZsU10viUMfk6X8 IGNv bGx (more content not included)... Normal [facility] MAGR Intraoperative Recordon 02-19-2021 MAGR Intraoperative Record MAGR Intra-Op Record Summary Primary Physician: Carlo Wyman DO Finalized Date/Time: 02/19/21 11:47:08 Pt. Name: STEVE CINTHYACORTES Diallo./Sex: 1945 FEMALE Med Rec #: [id number] Physician: Carlo Wyman DO Financial #: [id number] Pt. Type: I Room/Bed: [facility] Admit/Disch: 02/19/21 06:01:00 - Institution: Case Times MAGR Entry 1 Patient In Room Time 02/19/21 07:41:00 Out Room Time 02/19/21 09:39:00 Anesthesia Start Time 02/19/21 07:41:00 Stop Time 02/19/21 09:39:00 Surgery Start Time 02/19/21 08:19:00 Stop Time 02/19/21 09:35:00 Last Modified By: Shante Warner 02/19/21 09:41:47 Case Attendance MAGR Entry 1 Entry 2 Entry 3 Case Attendee Carlo Wyman Diane Long, Barbara RN Andrew DO Role Performed Surgeon - Primary Clear Coat Sprayer Clear Coat Sprayer Time In 02/19/21 07:41:00 02/19/21 07:41:00 02/19/21 07:41:00 Time Out 02/19/21 09:39:00 02/19/21 09:39:00 02/19/21 09:39:00 Procedure Arthroplasty Shoulder Arthroplasty Shoulder Arthroplasty Shoulder Total Reverse(Right) Total Reverse(Right) Total Reverse(Right) Last Modified By: Shante Warner 02/19/21 Timmy, Shante 02/19/21 Timmy, Shante 02/19/21 09:41:59 09:41:59 09:41:59 Entry 4 Entry 5 Entry 6 Case Attendee Latosha Jarvis Leigh-Ann CST Adkins, Brittany E CSFA Role Performed Scrub Personnel Rehabilitation Program Manager Rehabilitation Program Manager Time In 02/19/21 07:41:00 02/19/21 07:41:00 02/19/21 07:41:00 Time Out 02/19/21 09:39:00 02/19/21 09:39:00 02/19/21 09:39:00 Procedure Arthroplasty Shoulder Arthroplasty Shoulder Arthroplasty Shoulder Total Reverse(Right) Total Reverse(Right) Total Reverse(Right) Last Modified By: Shante Warner 02/19/21 Shante Warner 02/19/21 Shante Warner 02/19/21 09:41:59 09:41:59 09:41:59 Entry 7 Case Attendee Armando Sotomayor MD Role Performed Anesthesiologist of Record Time In 02/19/21 07:41:00 Time Out 02/19/21 09:39:00 Procedure Arthroplasty Shoulder Total Reverse(Right) Last Modified By: Shante Warner 02/19/21 09:41:59 General Comments: CARON VELÁZQUEZ AND ARABELLA NOONAN-ARTHREX REPS Surgical Procedures MAGR Pre-Care Text: A.20 Verifies operative procedure, surgical site, and laterality Im.150 Develops individualized plan of care Entry 1 Procedure Arthroplasty Shoulder Primary Procedure Yes Total Reverse Primary Surgeon Carlo Wyman DO Surgeon Comment RIGHT REVERSE TOTAL Start 02/19/21 08:19:00 SHOULDER - ARTHREX Stop 02/19/21 09:35:00 Anesthesia Type General Surgical Service Orthopedics Wound Class Clean Technique Details Closure Technique Primary Entire procedure No was performed via laparoscope or robotic assistance Last Modified By: Shante Warner 02/19/21 09:42:16 Post-Care Text: O.730 The patient's care is consistent with the individualized perioperative plan of care General Case Data MAGR Pre-Care Text: A.350.1 Classifies surgical wound Entry 1 Case Information OR MAGR OR 05 Case Level Level 5 Wound Class Clean Specialty Orthopedics ASA Class 3 Diagnosis Preop Diagnosis DJD RIGHT SHOULDER Postop Same As Preop Yes Postop Diagnosis DJD RIGHT SHOULDER Blunt or No Is the procedure No penetrating injury considered occured prior to Emergent/Urgent? the start of the procedure: Last Modified By: Shante Warner 02/19/21 08:22:20 Post-Care Text: O.760 Patient receives consistent and comparable care regardless of the setting Time Out MAGR Entry 1 Entry 2 Time out date/time 02/19/21 08:22:00 02/19/21 08:18:00 All team members No Yes have introduced themselves by name and role Surgeon, No Yes anesthesia, nurse confirm patient, site, procedure Surgeon reviews No Yes critical or unexpected steps, operative duration, anticipated blood loss Anesthesia team No Yes reviews any patient-specific concerns Nursing team No Yes reviews sterility (including indicator results) and equipment issues/concerns Antibiotic Antibiotic prophylaxis given within the last 60 minutes Administration Time 07:39 Is essential imaging displayed? Last Modified By: Shante Warner 02/19/21 Shante aWrner 02/19/21 08:22:44 08:23:31 Patient Positioning MAGR Pre-Care Text: A.280 Identifies baseline musculoskeletal status Im.40 Positions the patient Im.80 Applies safety devices Entry 1 Procedure Arthroplasty Shoulder Body Position Beach Chair Total Reverse(Right) Left Arm Position Extended on padded arm Right Arm Position Extended on padded arm board board Left Leg Position Other/see comments Right Leg Position Other/see comments Feet Uncrossed? Yes Press Points Checked Yes Additional TRIANGLE CUSHION USED Positioning Device Pillow Information UNDER LEGS Outcome Met (O.80) Yes Last Modified By: Shante Warner 02/19/21 08:27:49 Post-Care Text: E.290 Evaluates musculoskeletal status O.80 Patient is free from sig (more content not included)... Normal [facility] MAGR Intraoperative Record MAGR Intra-Op Record Summary Primary Physician: Finalized Date/Time: 02/19/21 08:17:10 Pt. Name: CINTHYA WILSON D.O.B./Sex: 1945 FEMALE Med Rec #: [id number] Physician: Carlo Wyman DO Financial #: [id number] Pt. Type: I Room/Bed: / Admit/Disch: 02/19/21 06:01:00 - Institution: Case Times MAGR Entry 1 Patient In Room Time 02/19/21 07:17:00 Out Room Time 02/19/21 07:40:00 Anesthesia Start Time 02/19/21 07:20:00 Stop Time 02/19/21 07:21:00 Surgery Start Time 02/19/21 07:22:00 Stop Time 02/19/21 07:36:00 Last Modified By: Sandra Guthrie RN 02/19/21 08:00:39 Case Attendance MAGR Entry 1 Entry 2 Case Attendee Armando Sotomayor MD, Laura RN Role Performed Anesthesia Care Provider Clear Coat Sprayer Time In 02/19/21 07:17:00 02/19/21 07:17:00 Time Out 02/19/21 07:36:00 02/19/21 07:40:00 Procedure Interscalene Interscalene Block(Right) Block(Right) Last Modified By: Sandra Guthrie RN, Laura RN 02/19/21 08:10:05 02/19/21 08:10:05 Surgical Procedures MAGR Pre-Care Text: A.20 Verifies operative procedure, surgical site, and laterality Im.150 Develops individualized plan of care Entry 1 Procedure Interscalene Block Primary Procedure Yes Primary Surgeon Armando Sotomayor MD Modifiers Right Start 02/19/21 07:17:00 Stop 02/19/21 07:36:00 Anesthesia Type Regional Block Surgical Service Anesthesia Wound Class None Technique Details Closure Technique N/A Entire procedure No was performed via laparoscope or robotic assistance Last Modified By: Sandra Guthrie RN 02/19/21 08:10:19 Post-Care Text: O.730 The patient's care is consistent with the individualized perioperative plan of care General Case Data MAGR Pre-Care Text: A.350.1 Classifies surgical wound Entry 1 Case Information OR MAGR Proc Room Case Level None Wound Class Clean Specialty Anesthesia ASA Class 3 Diagnosis Preop Diagnosis SCALENE BLOCK PRIOR TO Postop Same As Preop Yes RIGHT REVERSE TOTAL SHOULDER - ARTHREX Postop Diagnosis SCALENE BLOCK PRIOR TO RIGHT REVERSE TOTAL SHOULDER - ARTHREX Blunt or No Is the procedure No penetrating injury considered occured prior to Emergent/Urgent? the start of the procedure: Last Modified By: Sandra Guthrie RN 02/19/21 08:08:13 Post-Care Text: O.760 Patient receives consistent and comparable care regardless of the setting Time Out MAGR Entry 1 Time out date/time 02/19/21 07:18:00 All team members Yes have introduced themselves by name and role Surgeon, Yes Surgeon reviews Yes anesthesia, nurse critical or confirm patient, unexpected steps, site, procedure operative duration, anticipated blood loss Anesthesia team Yes Nursing team Yes reviews any reviews sterility patient-specific (including concerns indicator results) and equipment issues/concerns Antibiotic Antibiotic N/A prophylaxis given within the last 60 minutes Last Modified By: Sandra Guthrie RN 02/19/21 08:08:38 Patient Positioning MAGR Pre-Care Text: A.280 Identifies baseline musculoskeletal status Im.40 Positions the patient Im.80 Applies safety devices Entry 1 Procedure Interscalene Body Position Supine Block(Right) Left Arm Position Resting at Side Right Arm Position Resting at Side Left Leg Position Extended Right Leg Position Extended Feet Uncrossed? Yes Press Points Checked Yes Positioning Device Pillow Outcome Met (O.80) Yes Last Modified By: Sandra Guthrie RN 02/19/21 08:11:53 Post-Care Text: E.290 Evaluates musculoskeletal status O.80 Patient is free from signs and symptoms of injury related to positioning Skin Prep MAGR Pre-Care Text: A.30 Verifies allergies Im.270 Performs skin preparation Im.270.1 Implements protective measures to prevent skin and tissue injury due to chemical sources Entry 1 Skin Prep Syntegrity Prep Agents (Im.270) Chlorhexidine Gluconate Prep By Armando Sotomayor MD and Alcohol Prep Area (Im.270) Shoulder, Neck Prep Area Details Right Skin Prep Agent Dry Yes Without Pooling Hair Removal Syntegrity Hair Removal Methods No hair removal performed Outcome Met (O.100) Yes Last Modified By: Sandra Guthrie RN 02/19/21 08:12:41 Post-Care Text: E.10 Evaluates for signs and symptoms of physical injury to skin and tissue O.100 Patient is free from signs and symptoms of chemical injury Departure from OR MAGR Entry 1 Present on Depart N/A Via Stretcher Post-op Destination [facility] Skin DFO Condition Warm Description Report Given To Dayna Krueger RN Airway Maintenance Patient Status Stable Oxygen in Use? No Last Modified By: Sandra Guthrie RN 02/19/21 08:13:37 Case Comments Finalized By: Sandra Guthrie RN Document Signatures Signed By: Sandra Guthrie RN 02/19/21 08:17 Normal [facility] MAGR PACU Recordon MAGR PACU Record MAGR PACU Record Sum vikram Primary Physician: Carlo Wyman DO Finalized Date/Time: 02/19/21 12:44:27 Pt. Name: CINTHYA WILSON/Sex: 1945 FEMALE Med Rec #: [id number] Physician: Carlo Wyman DO Financial #: [id number] Pt. Type: I Room/Bed: 201/1 Admit/Disch: 02/19/21 06:01:00 - Institution: PACU Case Times MAGR Entry 1 In PACU I 02/19/21 09:42:00 Discharge from PACU 02/19/21 10:30:00 I Last Modified By: Sandra uGthrie RN 02/19/21 12:44:24 Finalized By: Sandra Guthrie RN Document Signatures Signed By: Sandra Guthrie RN 02/19/21 12:44 [facility] MAGR Postoperative Recordon 02-19-2021 MAGR Postoperative Record MAGR Phase II Record Summary Primary Physician: Carlo Wyman DO Finalized Date/Time: 02/19/21 11:19:15 Pt. Name: CINTHYA WILSON/Sex: 1945 FEMALE Med Rec #: [id number] Physician: Carlo Wyman DO Financial #: [id number] Pt. Type: I Room/Bed: 201/1 Admit/Disch: 02/19/21 06:01:00 - Institution: Phase II Case Times MAGR Pre-Care Text: Patient is free from s/s of injury. Patient remains free from compromised physical state related to surgery or anesthesia. Patient comfort maintained. Patient/family verbalize understanding of discharge instructions. Entry 1 In PACU II 02/19/21 10:30:00 Discharge from PACU 02/19/21 11:20:00 II Last Modified By: Edie Randhawa RN 02/19/21 11:18:40 Post-Care Text: The patient remains free from s/s of injury. Patient's vital signs stable, circulation maintained, return to preop mental and physical status, opsite/dressing intact, minimal or absent nausea and vomiting, tolerates po intake. Patient verbalizes adequate pain control. Patient/family express understanding of discharge instructions. General Comments: resumed care of pt on med surg floor. phase 2 complete at 1020. Finalized By: Edie Randhawa RN Document Signatures Signed By: Edie Randhawa RN 02/19/21 11:19 [facility] Nutrition Noteon 02-19-2021 Nutrition Note Chart reviewed; 75 y o female diagnosed with R shoulder surgery; current diet order regular - will adjust to 1800 kenny DM with h/o DM; note patient also with h/o CKD (st4); note patient with h/o peritoneal dialysis cath - removed? no significant weight changes noted on admit; no difficulties with chew/swallow identified; patient currently appears at high nutrition risk d/t age greater than 65 and surgery; encourage increase po as neelam; will monitor for ? need to add protein/Na restriction with CKD (st4); will add glucerna 1.2 po once daily to max po post-op; monitor wt/labs for any changes; follow, assist prn. ts [facility] Operative Report - Surgeon/P ahmet 02-19-2021 Operative Report - Surgeon/Physician Preoperative diagnosis: Osteoarthritis right shoulder, rotator cuff deficiency right shoulder Postoperative diagnosis: Same Procedure: Reverse total shoulder arthroplasty utilizing the Arthrex modular glenosphere 24 Base plate with a 25mm post 5 stem 36/+4mm glenosphere 2 locking screws and 2 non locking screws lock screw in the glenosphere Surgeon: Faith Wyman D.O. Anesthesia: General with a preoperative interscalene block Indications for surgery: Ongoing pain with progressive loss of function and failure of conservative treatment. Radiographic and clinical findings consistent with rotator cuff tear arthropathy/arthritis Estimated blood loss: 50 Complications: No complications Findings: [id number]-pt-[id number] in the glenohumeral joint, superior migration of the humeral head, tear rotator cuff and biceps, impingement on the humeral head on the undersurface of the acromion Procedure summary: Patient was brought to the operative suite she was given a general anesthetic she was placed in the beachchair position and the right shoulder was prepped and draped in usual fashion with initial isopropyl alcohol prep followed by a Betadine prep and a timeout was taken. And anterior deltopectoral approach was utilized. The deltoid and cephalic vein were identified they were mobilized laterally the proximal half centimeter of the pectoralis was released at the deltoid was released. The biceps tendon was noted to be absent from the groove there was no remnant of the tendon. The subscapularis what remained of it as well as well as the capsule was detached from the anterior humeral head and lesser tuberosity and the shoulder was dislocated the humeral head had a deformity with flattening of the humeral head and erosive changes down to bone. Utilizing version rotational guide pins in the humeral head was cut. My attention was turned towards the glenoid. What remained of the labrum was excised. A central guidepin was inserted with a guide. Reaming was performed twice first without a positive stop second with a positive stop. The pin depth measured just beyond 25. Post toe was drilled to 25 mm. Next 26 modular baseplate with a 25 mm post was impacted in the place. It was further stabilized with 2 nonlocking screws and then 2 locking screws. 36/+4 mm glenosphere was impacted in the place and then it was checked for integrity. A central locking screw was then inserted for further stability and it was torqued between 204 and 5. My attention was turned back towards the humerus hand-held reaming was performed to size 5 size 6 reamer would not fit all the way down broaching was performed and ultimately I used a standard size 5 broach. Trial reductions were performed with a central cup and there was proper deltoid tensioning and range of motion to extremes revealed stability. The trial components removed and a size 5 Arthrex stem was impacted in place it was rotationally secure. At 135 cup had been secured to this and then a +3 mm polyliner was clicked into place and it was checked for integrity. The shoulder was irrigated and the shoulder was reduced. 1 more time range of motion to extremes without tendency towards dislocation. The deltoid appear to be balanced properly. Further irrigation ensued and then I closed the fat and subcutaneous layers with a 2-0 Vicryl and 0 Vicryl sutures and then a running 3-0 subcuticular stitch and then Dermabond glue. Sterile dressings were applied and the patient was transported to the recovery room in stable condition [Electronically Signed on: 02/19/2021 09:50 EST] Garo Carlo Arguello [Verified on: 02/19/2021 09:50 EST] Carlo Wyman DO [facility] POCT Glucose Levelon 022 Glucose [Mass/Vol] 154 mg/dL High [address] [place] [address] Comment on above: Performed By: #### 4 [id number] #### [facility] (DEFAULT) [address] [place] [id number] Glucose [Mass/Vol] 100 mg/dL [address] Comment on above: Performed By: #### 4 [id number] ####[facility] (DEFAULT)[address] [place] [address] Patient Handouton 02-19-[address] ROME POST OPERATIVE SHOULDER INSTRUCTIONS SURGEONS WRITTEN INSTRUTCTIONS: -If you have been given a cryo cuff after surgery you should use it as much as possible for the first 24-48 hours. After that it is optional. TIP: Many patients prefer to use it a little longer because it helps reduce pain -You should wiggle your fingers frequently -Change your dressings in 1 day. If steri-strips have been applied DO NOT remove them. When the wound is clean and dry you may leave it open to air but again DO NOT remove any steri-strips that have been applied -You may shower in 1 day but do not let the water stream directly strike the wound -Do pendulum exercises for at least 10 minutes twice a day -If you have any problems or concerns, please call the office at [phone] -Follow up as scheduled [facility] XR Shoulder 1 View Righton 0 1-10-2022 XR Shoulder 1 View Right EXAM: XR Shoulder 1 View Right HISTORY: pain COMPARISON: Right shoulder study dated 12/27/2015 TECHNIQUE: AP view of the right shoulder was obtained with portable technique at 0954 hours. FINDINGS: There is a ball in cup type right shoulder prosthesis which appears unremarkably positioned. A few small calcifications at the proximal humeral level laterally are nonspecific. Soft tissue swelling and air are noted compatible with recent surgery. Acromioclavicular joint is grossly intact. Mild lateral acromion spurring. No definite acute fracture or dislocation. IMPRESSION: Right shoulder study demonstrates postoperative changes as described. Follow up as needed. Final Dictated by: Senthil Enriquez MD Dictated DT/TM: 02/19/21 10:49 Signed (Electronic Signature): Senthil Enriquez MD 02/19/21 12:41 p Technologist: Dagoberto HEARD [facility] 2018 Novel Coronavirus (CoVI D-19), [place]ADISON LCon 02-16-2021 SARS-CoV-2 (COVID-19) RNA MADISNO+probe Ql (Unsp spec) Not detected Invalid Interpretation Code Not Detected [facility] Comment on above: Order Comment: [phone] Result Comment: This nucleic acid amplification test was developed and its performance characteristics determined by [employer]. Nucleic acid amplification tests include RT- PCR and TMA. This test has not been FDA cleared or approved. This test has been authorized by FDA under an Emergency Use Authorization (EUA). This test is only authorized for the duration of time the declaration that circumstances exist justifying the authorization of the emergency use of in vitro diagnostic tests for detection of SARS-CoV-2 virus and/or diagnosis of COVID-19 infection under section 564(b)(1) of the Act, 21 U.S.C. 360bbb-3(b) (1), unless the authorization is terminated or revoked sooner. When diagnostic testing is negative, the possibility of a false negative result should be considered in the context of a patient's recent exposures and the presence of clinical signs and symptoms consistent with COVID-19. An individual without symptoms of COVID-19 and who is not shedding SARS-CoV-2 virus would expect to have a negative (not detected) result in this assay. Performed At: [facility] [address], [place] [id number] Darcie Scott PhD Ph:[phone] Performed By: #### 6 [id number] ####[facility] ([address] [address] Progress Note - Nurseon Progress Note - Nurse Spoke with pt and informed her to be at hospital at 6am and NPO after MN, she verbalizes understanding. [Electronically Signed on: 02/16/2021 10:50 EST] Liz Garsia RN [Verified on: 02/16/2021 10:50 EST] Liz Garsia RN [facility] Coding Summaryon 02-15-2021 Coding Summary HTMLBase 64 PocmqiglBQd1zFf+PGhlYWQ+ RR5JHBExD33xaWRtaY9OZ3hB TA3CUQUEEMBKXW8EWZ8arII0 CIaeO8YiooYl ZaluoZNjGC72HYh4TUG0lNmr IIyvzQ7mhSRnL6a2GoGzIY82 rF14VBhmERJeClA3BuSmfkko bWFy D1sjAdYdpHSuVas+PHRhYmxl IHdpZHRoPScxMDAlJyBzdHls TE4wTv1hNOGbLUAqnPgkmWHw OiBj g0ktEHNiVJdeVN4doEdzU2Oq iZI6BMMtc7g9Nz63iCH+PHRk VKY8aCssZOtpm719ZaFvg2np IDM3 wHGeYBcgEFT8P23wb2Y2DZSp DNCpZXV5kNA7bM1flZzlyrso R2PvmHMrBwM7TQV7eJFykT9c bGln sdluwA7wPcl+H76XLH1HRZJY EM6VDbf8R1FrIvhbmND+PC90 QJDzUT68tQXopKDoq8rawQv8 JzEw KVNtRHP3sXyfXKlfh2EdEBAs Y55abOWfz7Y9OCJyeBrxyUMs TzNtzJT4pN8gDXdgltjjb8lc dzsn Okufo7goud95hE77D25lFTdx IZBtYUU8ZUBxMRNuhUttpc5r eO6tSi3+AGyky2fzy5yylXd2 IjIw OHXkrzBnlKsuDKF8y7NcOz86 M6RtgIzjp0InVio5wb65wWTz e7J6sPD7UZnvYKUjhV7qEQfk ZnQ6 UXLdDpJbbA59qHSmFSuaTu4r oCechAnlFF7iWKNuftxdATSp iC4qMZVidXZsvZhxHI3uKWOr bjtm k579VfQvDBW3WNAjxPDlS0Wx sD3aOdEbEEBdKAWnG8MozTUt UVwvQ848SKgfZwD4EVSsvbKa Y2Fs VXMvoWunBmJ1f2I3Lx8Mf0Yh ghcnQCA7ZVqfUIAqQdD1TeVt UaQ3Q7HiQyo4TPBvwPetON8z J3Bh SDIcxodzwskjbPG0CJHkMBAv pQ67kZZgBRngNg9sz4X9d388 PSJkRAJlkK16Ou2xqGfvKQDs dCBU vJ2rpguda1ijmaggQbEyTNAw DJk3KYe1WEDffRtpAtSeQVV6 RxV4MOL4rQWozX5fmHqxvytj dG9w Oyc+J59okS6vWBZ1CAP0kbwa ZXEwcfNhWP51LG17N8XrTltd dGFibGU+AUPhpcKknFyiCK2c YmFj m0vdy0CsYFomS6ScSJKjJTgs Win8UDJeCJN6oWM6fG8qKCTi UUiua6D5mPF1C4VgxuFnit5h b2xs FRSoGHteY37fhOPja2I9ITHw hFG4ZSYvaXkeQcSomN88Clh+ AHRrtMent2FnHelbg2ryp1ho dGg9 KvNaYURuheOljKwdGEJ2y7Eo Fy81J41yPUdqYQVyRTGtVBXz WQVznBgvvh9klA6bMt5+PGNv bCB3 bAN4jK3yIWWxEnJ0NPmlL240 YcMidAJhNdeib6kpn0msyFs0 BkLdKRAimgQzrNrwPTD3y7Db Lz48 O23pMCdjNNNvFOCvQEZgRSXc cZlayy3wsM6rDx0+GQ6or8ee ce65nP37rPA+EAZmEZB4eSem PSdw QFWmjV2tBGynRvM5PVKnRtSg dW87dQWoOUudUy9pzIniqHfi LQ5xHTPcqmgek710QfQau8fr IDEw gAErOZkdPTN8U21ut8W2PUPv OBYvPCM2nDR9cK4xhOovrezh bGVmdDsgdmVydGljYWwtYWxp Z246 IHRvcDsnPlBhdGllbnQgTmFt LRw8T1CkGvr2QAAeyPwqSJ0i bNXsTSerFe4jgLeqrVabUH0h NTBp tphgg387YoHdr8ihGPLoiSTq ONslNWI9S25kg6L7CGBsJCNq BSW8sJU4aP9lnEckixppfKFr dDsg evToeKxwABzsNTlaF177UGOa pEmePuZjeaNtBXWznXX3EO84 TB53uYSgo2C4rNA8E8AvONDi bmct afmwoDB8BNZkCHKssW93Zv7w tIteHv8yOXXjZGJ5SRPmdNNy B3DlwO0kPtPpPPJaSTOsU1Cu eHQt DSmyP279THdfFnW0UQPxikAg O4YdTUUovOacDyO1f6P5Dh0V A3M7UM74UR33cHTyv3R3cLZ0 J3Bh QYKntdujhrstyZX3UIOfPZIt fK74Hs0buAkgNp0nVXAoBJQ4 JBQzjAGcE5SotP6rFxYaMKMw MDAw N1YjmKYoERdgJ504LTghGiL1 OVFvmmJoA9UbXRQmqTosFbW1 e8H5Jh4TODi3HU26HP00yAJh c3R5 tMQ1K2ThIOGqklcgibqppEA9 YBSzLBNfqP92Un0qhGjpDz6l YGXzRJV3FIJhuEGqQ0ZfoF6x OiAj VYCwQMLxE1StaTQzDVejU289 DGbcZxU9TQBbqeFoY8FdQZKx dKhpMjL0x8V8Rv3PNFQjRB64 IFR5 yIN3DK69RN58A0IiIgibxBSk bGU+PHRhYmxlIHdpZHRoPScx DUBcWaRupTibRG0nXo1cNBPy LWNv rVhqxGJdViXvh0rpCBSdIMiw JQ5mdCwuL4GrwZM9ENZub7i7 Tu13S49gS5CdwZL+PGNvbCB3 aWR0 dS5oJvSbNkW2COsoC058RmGm iACuKfxxz2fqu5skdOo6SiN6 YJFjqeExkTdkGDH7r6NbFl67 Y29s IHdpZHRoPSIxNSUiIHZhbGln ib2avS8sPo4+IQSqcHQ8hRC9 gJ1qVdEbRcL7WGuuU249BkSw cCIv Rivpt6fuh8ulePg7VhJhKDQu gfJfhTejOHY9u0DnJs55O9Gk sOemj1ZqWkn3xj78cFCph6B4 bGU9 X9VdSNMcpsmbgIEsyYsfPV6e FJFqhqxjQSSieV7sCWHaJ3w0 CeQdYdZ2LSroW3HymrV5QHLp cHQg BFovCIS1E34zw2W4JDYvWLPy JWK9lMJ1iC1qqGxjthpepGMy fEduutWmtMpsXOehBFvzI459 IHRv xYplNLKtzN0nTAJsiMMdrZwr PA4qDQTxnloiXjBKD52PNzau QcRDEFPUQA03I2OkCmu2KXJm dHls BI5zmHYrKJosLa2znFcdnFgf DA1oBOBqhkpiUZWlbH3hNIEx tFFprMbnSX4xKOPxfhhgz265 OiAx ORW4CRFfhTTsX5MicV4mLsTp EFYfCKNbA9VwePZiASpbS496 MGltMuK3NINrjnFoN5CyPIWv aWdu IqK9s7O1Uy7vKE6lXA0kQBJ1 QJ13YW96mOGme8G6tZD4P2Lj GCIudoqpwnrbrAH3JGMlWFEa aW47 nBXbUNfkHx1ss1R4l310MXVk TUPviI17Fo6moOhtOEQnnNKK pL2lzgtqi4bdoctkYjZdAOPo MDt0 HYf7IPWbyLpvMhSaODO3KdL8 IZN6hIQpwJ7ktNolchnsuB5e Oyc+UzAePBYjfyJ8O8JeXha8 ZCBz qOwkXO1hqRXaZDqpAv4spLxz uFtpMB9lPCAchlwwYAYnrH3t XFNwnKFrtNdeRC4yZHTmjzxh b250 GbFjCVX6INXiqCRgD4DsoA2q JwQeVRHmTYVpM3ZhkWLtGKrb X198UOmyBzW8XERurbNhI2We LWFs kFyeSdR4u5C1Pi7JTV5CMZI5 G0BkEjz9JIRffNsxFH9ryFIz MPjaKf7crMcsdRnpLZ8oTSVk bjtw GTXbuY9lJSEmmXLuwEniSL6h KUAecnuss980FgRjECK7WGKh yUNdG2IkhS7oBqQfXZKsGKJc O3Rl oSCmAOyvA624AGfxVnX3VHPg rkXgY3JgKUJntKioMqY7e4Z4 Cg9ZRRewfMV+VY77ho78N6Le Ymxl Rup6BOYqJRJ4hJS1wX3wOXUx MYehh0E0pKK7A7McvsCvad6b b8tbWUNyBFehW84ixVTim7G1 IGVt iYB0UQRlvXipOtEbvM00Hyd+ GTZtmVwjc3HnSjuwg3aid7ya hOm1JwAjTPHnfhPoyCjaRVW6 b3Ai Uq54V80oMVlzYKHjOOJlLHVz KVWpfEwqxt8wsG4hCo8+PGNv vRP4dMP4qX8hIfReDiE0EZga Z249 RdIjxMKrUponk1gdu9sijDk2 PsIwYCNrpqGkuRqpXVW1d7Gd Ll51S6MryXbuu7GsTsk1nf28 dGQg y1V0qQE7I3DxXAAtweldzUSe yXgmND3sUQScuczsONLpkM0o RBNrQ8w7ApCuKbH9MOxbU8Be bnQ6 GXUbsKWuUZBgkDUUbS9ihbtw y8ltgiaoPaDoKATpCUz5SHe3 UOGenZdyGzGwYLH8GlN3EDN4 aWNh yZ3cwZiimqzpsY6yGfy+UGh5 l3tmaKQxUJ9peAZ3SV66QN01 hDXhb5B0tED6E6OsLBWbvymw cmln bVI0XJVtHOApgE29Fp2hoOya Dk1mNLQxAKI7JRCebNWvI1Wg xF5aHzIoMVJuJFVyF7MklAJt YWxp X648TSvyNvA1OBJmesSsR8Tg MTOaiZpcMuS3f3M9Xv7QBD13 CG00AT85xKAvv3T4rKK2Y2Sn ZGRp hebrpnbgqHZ2KTGvHLOefG46 Pl5cbKetUh6fTSQrLAA4HREz jXKoO9ZgvZ3gChFbZQKfKXNo O3Rl nIPkLBgqM130OBhiLlL5CSNf ezLyT3FlJIOvqRqgAfW0b2A4 Jt5HUg57WL32UX76sKSsm4J0 bGU9 Y3EtIRZyswxtjbnnbBT9HDLb KAXltG59Ps5xmKurIn9yYGQh GCU9OULgaAUvQ8SfcQ4fCdRa MDAw XXJgF7AcoWVnXByeR251GRzd JsS7RAXpomIjR1XbXTYbjUls UyG4y4S8Aa6DLQtjjah9Z7Bf Pjwv dHI+PY53TXHyKQ91aFQmnQHs g0ahlMp1LaKqWLHtQCR7eHpo GPavd6AjMOZuG28lrZLhd0O8 IGNv bGx (more content not included)... [facility] Progress Note - Nurseon 01-11 Progress Note - Nurse Talked with Dr. Wyman on 01-29-2021 regarding Type and Screen order- had notified Dr. Wyman that his office was called for clarification was patient was at PAT visit. Was told by office staff that we were sent old order form and that Type and Screen was not needed on patient. Informed Dr. Wyman on 01-29-2021 of patient's history of anemia and recent H&H results- Dr. Wyman stated that no Type and screen was needed prior to surgery on 03-01-2020. [Electronically Signed on: 02/01/2021 07:58 EST] Kimberly Ortiz RN [Verified on: 02/01/2021 07:58 EST] Kimberly Ortiz RN [facility] Progress Note - Nurseon 01-11 Progress Note - Nurse Dr. Desai did ch art review and no new orders received. [Electronically Signed on: 01/29/2021 15:23 EST] Lynette Valadez RN [Verified on: 01/29/2021 15:23 EST] Lynette Valadez RN [facility] C Urineon 01-27-2021 C Urine <10,000 cfu/ml [facility] Comment on above: Performed By: #### [id number] #### [facility] (DEFAULT) [address] [place] [address] C MRSA Screenon 01-26-2021 C MRSA Screen Negative [facility] Comment on above: Performed By: #### 1 [id number] ####[facility] (DEFAULT)[address] [place] [address] Provider Orderson 01-26-2021 Provider Orders [id number] [id number] TIFF [facility] .Auto Diff 1on 01-25-2021 Auto Mchenry % 10 % [place] 02-21 [facility] Comment on above: Performed By: #### 1 [id number] #### [facility] (DEFAULT) [address] [place] [address] Baso Abs# 0.0 x10 Normal 0.0-0.2 [facility] Comment on above: Performed By: #### 1 [id number] #### [facility] (DEFAULT) [address] [place] [id number] Basophils/100 WBC (Bld) 0.2 % Normal 0.2-2.0 [facility] Comment on above: Performed By: #### 1 [id number], [id number], [id number] #### [facility] (DEFAULT) [address] [place] [address] Eos Abs# 0.8 x10 High 0.0-0.4 [facility] Comment on above: Performed By: #### 1 [id number], [id number], [id number] #### [facility] (DEFAULT) [address] [place] [address] [id number] Eosinophils/100 WBC (Bld) 8.0 % High 0.9-4.0 [facility] Comment on above: Performed By: #### 1 [id number], [id number], [id number] #### [facility] (DEFAULT) [address] [place] [address]61 Lymph Abs# 2.2 x10 Normal 1.3-2.9 [facility] Comment on above: Performed By: #### 1 [id number], [id number], [id number] #### [facility] (DEFAULT) [address] [place] [address] 47960 Lymphocytes/100 WBC (Bld) 21 % Normal 14-48 [facility] Comment on above: Performed By: #### 1 [id number], [id number], [id number] #### [facility] (DEFAULT) [address] [place] [address] 20008 Mchenry Abs# 1.0 x10 High 0.0-0.8 [facility] Comment on above: Performed By: #### 1 [id number], [id number], [id number] #### [facility] (DEFAULT) [address] [place] [address] [id number] Neut Abs# 6.5 x10 Normal 1.5-9.2 The [facility] Comment on above: Performed By: #### 1 [id number], [id number], [id number] #### [facility] (DEFAULT) [address] [place] [address] 39039 Neutrophils/100 WBC (Bld) 61 % Normal 44-88 [facility] Comment on above: Performed By: #### 1 [id number], [id number], [id number] #### [facility] (DEFAULT) [address] [place] [address] 92180[facility] Standardon 01-25-2021 eGFR Non AA 16 mL/min/1.73m2 Invalid Interpretation Code [facility] Comment on above: Performed By: #### 1 [id number], [id number], [id number] #### [facility] (DEFAULT) [address] [place] [address] 43380 eGFR AA 19 mL/min/1.73m2 Invalid Interpretation Code [facility] Comment on above: Result Comment: Business Project Analyst hero Kidney disease could be indicated at eGFRs of less than 60 ml/min/1.73m2. Kidney Failure is indicated at less than 15 ml/min/1.73m2 Performed By: #### 1 [id number], [id number], [id number] #### [facility] (DEFAULT) [address] [place] [address] 63011 Anion gap [Moles/Vol] 15.0 mmol/L Normal 5.0-19.0 [facility] Comment on above: Performed By: #### 1 [id number], [id number], [id number] #### [facility] (DEFAULT) [address] [place] [address] 26941 Calcium [Mass/Vol] 9.0 mg/dL Normal 8.9-10.3 [facility] Comment on above: Performed By: #### 1 [id number], [id number], [id number] #### [facility] (DEFAULT) [address] [place] [address] 71840 Chloride [Moles/Vol] 97 mmol/L Low 101-111 [facility] Comment on above: Performed By: #### 1 [id number], [id number], [id number] #### [facility] (DEFAULT) [address] [place] [address] 86769 CO2 [Moles/Vol] 23 mmol/L Normal 21-32 [facility] Comment on above: Performed By: #### 1 [id number], [id number], [id number] #### [facility] (DEFAULT) [address] [place] [address] 71177 Creatinine [Mass/Vol] 2.92 mg/dL High 0.60-1.30 [facility] Comment on above: Performed By: #### 1 [id number], [id number], [id number] #### [facility] (DEFAULT) [address] [place] [address] 77462 Glucose [Mass/Vol] 163.0 mg/dL High 74.0-118.0 [facility] Comment on above: Performed By: #### 1 [id number], [id number], [id number] #### [facility] (DEFAULT) [address] [place] [address] 86325 Osmolality 279 mOsm/L Invalid Interpretation Code [facility] Comment on above: Performed By: #### 1 [id number], [id number], [id number] #### [facility] (DEFAULT) [address] [place] [address] 70071 Potassium [Moles/Vol] 4.1 mmol/L Normal 3.6-5.1 [facility] Comment on above: Performed By: #### 1 [id number], [id number], [id number] #### [facility] (DEFAULT) [address] [place] [address] 52224 Sodium [Moles/Vol] 131.0 mmol/L Low 136.0-144.0 [facility] Comment on above: Performed By: #### 1 [id number], [id number], [id number] #### [facility] (DEFAULT) [address] [place] [address] 08443 Urea nitrogen [Mass/Vol] 48 mg/dL High 8-26 [facility] Comment on above: Performed By: #### 1 [id number], [id number], [id number] #### [facility] (DEFAULT) [address] [place] [address] 78153 Urea nitrogen/Creatinine [Mass ratio] 16.0 mg/mg Normal 4.6-16.2 [facility] Comment on above: Performed By: #### 1 [id number], [id number], [id number] #### [facility] (DEFAULT) [address] [place] [address] 65986 CBC w/ Auto Diffon 1 Erythrocyte distribution width (RBC) [Ratio] 14.7 % Normal 11.5-15.0 [facility] Comment on above: Performed By: #### 1 [id number], [id number], [id number] #### [facility] (DEFAULT) [address] [place] [address] Hematocrit (Bld) [Volume fraction] 32.1 % Low 33.7-40.4 [facility] Comment on above: Performed By: #### 1 [id number], [id number], [id number] #### [facility] (DEFAULT) [address] [place] [address] 98159 Hemoglobin (Bld) [Mass/Vol] 9.7 g/dL Low 11.3-15.9 [facility] Comment on above: Performed By: #### 1 [id number], [id number], 4797860 #### [facility] (DEFAULT) [address] [place] [address] 56760 Instr WBC 10.6 x10 Invalid Interpretation Code [facility] Comment on above: Performed By: #### 1 [id number], [id number], [id number] #### [facility] (DEFAULT) [address] [place] [address] 37220 Man Diff? Auto Normal [facility] Comment on above: Performed By: #### 1 [id number], [id number], [id number] #### [facility] (DEFAULT) [address] [place] [address] 20893 MCH (RBC) [Entitic mass] 30 pg Normal 24-34 [facility] Comment on above: Performed By: #### 1 7342517, [id number], [id number] #### [facility] (DEFAULT) [address] [place] [address] 55932 MCHC (RBC) [Mass/Vol] 30 g/dL Normal 26-37 [facility] Comment on above: Performed By: #### 1 [id number], [id number], [id number] #### [facility] (DEFAULT) [address] [place] [address] 18221 MCV (RBC) [Entitic vol] 98 fL Normal 81-100 [facility] Comment on above: Performed By: #### 1 1390819, [id number], 7776960 #### [facility] (DEFAULT) [address] [place] [address] 68367 Platelet 379 x10 Normal 138-427 [facility] Comment on above: Performed By: #### 1 [id number], [id number], [id number] #### [facility] (DEFAULT) [address] [place] [address] 13680 Platelet mean volume (Bld) [Entitic vol] 9.8 fL Normal 6.3-10.2 [facility] Comment on above: Performed By: #### 1 [id number], [id number], [id number] #### [facility] (DEFAULT) [address] [place] [address] 30417 RBC 3.28 x10 Low 3.70-5.30 [facility] Comment on above: Performed By: #### 1 [id number], [id number], [id number] #### [facility] (DEFAULT) [address] [place] [address] 87497 WBC 10.6 x10 High 3.5-10.5 [facility] Comment on above: Performed By: #### 1 [id number], [id number], 7752518 #### [facility] (DEFAULT) [address] [place] [address] 25362 ANES Marissa 09-18-2020 ANES POST HNO ID: [id number] Author: Robin Michael MD Service: Anesthesiology Author Type: Anesthesiologist Type: Anesthesia PostOp Filed: 09/18/2020 4:22 PM Note Text: POST ANESTHESIA EVALUATION NOTE SERVICE DATE: 09/18/2020 SERVICE TIME: 4:22 PM : 1945 Vitals: 09/18/20 1247 09/18/20 1520 Temp: 37.1 ?C (98.8 ?F) 36.8 ?C (98.2 ?F) 09/18/20 1530 09/18/20 1545 09/18/20 1600 09/18/20 1615 BP: 180/70 172/79 179/83 148/68 09/18/20 1530 09/18/20 1545 09/18/20 1600 09/18/20 1615 Pulse: 81 78 82 84 09/18/20 1530 09/18/20 1545 09/18/20 1600 09/18/20 1615 Resp: 16 16 17 12 09/18/20 1530 09/18/20 1545 09/18/20 1600 09/18/20 1615 SpO2: 92% 92% 93% 97% Validated Vital Signs: Yes POST ANES STATUS: No apparent anesthetic complications. The patient is appropriately hydrated with stable respiratory and cardiovascular status. Patient has safe and adequate airway control. The patient has appropriate pain relief and no significant post operative nausea or vomiting. The patient has achieved baseline mental status. Intra-Operative Events: See the [facility] record for the event detail Further assessment by Anesthesia Service: None Other Remarks: SIGNATURE: Robin Michael MD PATIENT NAME: Cinthya Wilson DATE: September 18, 2020 TIME: 4:22 PM PAGER/CONTACT #: [phone] Normal [facility] APTTon 09-18-2020 aPTT Coag (Bld) [Time] 24.1 s Normal 23.0-32.4 Cl [facility] Comment on above: Result Comment: Unfr actionated Heparin Therapeutic Ranges: Standard Heparin Nomogram: 53 to 78 seconds (anti-Xa level of 0.3 to 0.7 U/ml) Low Dose/ACS Nomogram: 49 to 67 seconds (anti-Xa level of 0.2 to 0.5 U/ml) Stroke Treatment Nomogram: 49 to 67 seconds (anti-Xa level of 0.2 to 0.5 U/ml) Note: The APTT therapeutic range has been determined for the current lot of laboratory APTT reagent in use throughout the [facility]. 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 Waste Technician(s): Surgeon(s) and Role: * Yamileth Martin MD - Primary * Kaleb Young MD - Resident - Assisting No Additional Staff Anesthesia: General Procedure: Left ureteroscopy, renal pelvis biopsy Left ureteral stent removal Estimated Blood Loss: 0 mls Accidental Punctures or Lacerations: Not applicable Complications: None Drains: None Specimens/Cultures: Specimen ID Type Site Comments Sent To Cytology 1 Urine left renal pelvis (taken by Naye from surgical support) Cytology Path 1 Tissue left renal pelvis biopsy Pathology Routine Cytology 2 Tissue left renal pelvis brush biopsy (taken by Madonna from surgical support) Cytology Findings: -no tumor in bladder -no hydroureteronephrosis or filling defect in left upper tract -patchy erythema and excoriation of left renal pelvis and calyces -sloughed epithelium throughout left collecting system -no distinct tumor or mass PRE-OP/PRE-PROCEDURE DIAGNOSIS: left upper tract neoplasm POST-OP/POST-PROCEDURE DIAGNOSIS: inflammation of left upper tract SIGNATURE: Kaleb Young MD PATIENT NAME: Cinthya Wilson DATE: September 18, 2020 TIME: 3:07 PM PAGER/CONTACT #: [phone] Normal [facility] CBCon 09-18-2020 Absolute nRBC <0.01 Normal <0.01 [facility] Comment on above: Performed By: #### P T, CMP, CBC, PTT ####[facility] [address] [place], [place] [phone] Erythrocyte distribution width (RBC) [Ratio] 17.8 % High 11.5-15.0 [facility] Comment on above: Performed By: #### P T, CMP, CBC, PTT ####[place] [address] [place] [address], [place] [phone] Hematocrit (Bld) [Volume fraction] 34.1 % Low 36.0-46.0 [facility] Comment on above: Performed By: #### P T, CMP, CBC, PTT ####[place] [address], [place] [phone] Hemoglobin (Bld) [Mass/Vol] 10.3 g/dL Low 11.5-15.5 [facility] Comment on above: Performed By: #### P T, CMP, CBC, PTT ####[place] [address], [place] [phone] MCH 28.9 pG Normal 26.0-34.0 [facility] Comment on above: Performed By: #### P T, CMP, CBC, PTT ####[place] [address], [place] [phone] MCHC (RBC) [Mass/Vol] 30.2 g/dL Low 30.5-36.0 [facility] Comment on above: Performed By: #### P T, CMP, CBC, PTT ####[place] [address] [place], [place] [phone] MCV (RBC) [Entitic vol] 95.5 fL Normal 80.0-100.0 [facility] Comment on above: Performed By: #### P T, CMP, CBC, PTT ####[place] [address], [place] [phone] Platelet mean volume (Bld) [Entitic vol] 10.0 fL Normal 9.0-12.7 [facility] Comment on above: Performed By: #### P T, CMP, CBC, PTT ####[place] [address], [place] [phone] Platelets (Bld) [#/Vol] 270 10*3/uL Normal 150-400 [facility] Comment on above: Performed By: #### P T, CMP, CBC, PTT ####[facility] [address], [place] [phone] RBC (Bld) [#/Vol] 3.57 10*6/uL Low 3.90-5.20 [facility] Comment on above: Performed By: #### P T, CMP, CBC, PTT ####[facility], [place] [phone] WBC (Bld) [#/Vol] 11.82 10*3/uL High 3.70-11.00 [facility] Comment on above: Performed By: #### P T, CMP, CBC, PTT ####[facility], [place] [phone] CYTOLOGYon 09-18-2020 CYTOLOGY Specimen originated from [facility] Specimen #: [id number] Submitting Physician: YAMILETH MARTIN M.D. (Q10) SPECIMEN SUBMITTED A: RENAL PELVIS LEFT, WASHING B: RENAL PELVIS LEFT, BRUSHING FINAL DIAGNOSIS A. RENAL PELVIS LEFT, WASHING Negative for high-grade urothelial carcinoma. B. RENAL PELVIS LEFT, BRUSHING Atypical urothelial cells. Yves Arvizu M.D. Ph.D. (Electronic Signature) CLINICAL DATA Cancer of left renal pelvis and ureter GROSS DESCRIPTION A: 30cc cloudy pink fluid with particles B: 20cc clear colorless fluid with brush with scant particles STAINS A: RENAL PELVIS LEFT, WASHING THIN PREP Non-It Security Engineer B: RENAL PELVIS LEFT, BRUSHING THIN PREP Non-It Security Engineer Date of Report: 09/19/2020 Date of Procedure: 09/18/2020 Date of Receipt: 09/18/2020 Submitted by: YAMILETH MARTIN M.D. (Q10) Location: E020 Diagnostic interpretation performed at [facility], [address] [place] [address]. CLIA Number: [id number] Normal [facility] Comp Metabolic Panelon 09-18 Albumin [Mass/Vol] 3.5 g/dL Low 3.9-4.9 [facility] Comment on above: Performed By: #### P T, CMP, CBC, PTT ####[address] [phone] ALP [Catalytic activity/Vol] 107 U/L Normal 34-123 [facility] Comment on above: Performed By: #### P T, CMP, CBC, PTT ####[place] [phone] ALT [Catalytic activity/Vol] 24 U/L Normal 7-38 [facility] Comment on above: Performed By: #### P T, CMP, CBC, PTT ####[address] [phone] Anion gap [Moles/Vol] 16 mmol/L Normal 9-18 [facility] Comment on above: Performed By: #### P T, CMP, CBC, PTT ####[address] [phone] AST [Catalytic activity/Vol] 25 U/L Normal 13-35 [facility] Comment on above: Performed By: #### P T, CMP, CBC, PTT ####[address] [phone] Bilirubin [Mass/Vol] 0.2 mg/dL Normal 0.2-1.3 [facility] Comment on above: Performed By: #### P T, CMP, CBC, PTT ####[place] [address] [place] [address], [place] [phone] Calcium [Mass/Vol] 9.0 mg/dL Normal 8.5-10.2 [facility] Comment on above: Performed By: #### P T, CMP, CBC, PTT ####[place] [address] [place] [place] [phone] Chloride [Moles/Vol] 101 mmol/L Normal 97-105 [facility] Comment on above: Performed By: #### P T, CMP, CBC, PTT ####[place] [address] [place] [phone] CO2 [Moles/Vol] 22 mmol/L Normal 22-30 [facility] Comment on above: Performed By: #### P T, CMP, CBC, PTT ####[place] [address] [place] [phone] Creatinine [Mass/Vol] 2.13 mg/dL High 0.58-0.96 [facility] Comment on above: Performed By: #### P T, CMP, CBC, PTT ####[place] [address] [place], [place] [phone] eGFR- Amer. 27 Normal [facility] Comment on above: Performed By: #### P T, CMP, CBC, PTT ####[place] [address] [place], [place] [phone] eGFR-All Other Races 23 . Normal [facility] Comment on above: Result Comment: eGFR (Estimated GFR) Units of measure: mL/min/1.73 meters squared eGFR is derived from the reexpressed MDRD Study equation using the following parameters: serum creatinine, age, gender and race. The creatinine assay has been calibrated to be traceable to IDMS. An eGFR <60 mL/min/1.73m2 for >3 months is consistent with chronic kidney disease. Refer to KDOQI guidelines for clinical interpretation. In patients with unstable renal function, e.g. those with acute kidney injury, the eGFR may not accurately reflect actual GFR. Performed By: #### P T, CMP, CBC, PTT ####[facility] [place], [place] [phone] Glucose [Mass/Vol] 80 mg/dL Normal 74-99 [facility] Comment on above: Result Comment: The [place] Diabetes [employer] (ADA) provides guidance for cutoff values for fasting glucose and random glucose. The ADA defines fasting as no caloric intake for at least 8 hours. Fasting plasma glucose results between 100 to 125 mg/dL indicate increased risk for diabetes (prediabetes). Fasting plasma glucose results greater than or equal to 126 mg/dL meet the criteria for diagnosis of diabetes. In the absence of unequivocal hyperglycemia, results should be confirmed by repeat testing. In a patient with classic symptoms of hyperglycemia or hyperglycemic crisis, random plasma glucose results greater than or equal to 200 mg/dL meet the criteria for diagnosis of diabetes. Reference: Standards of Medical Care in Diabetes 2016, [place] [employer]. Diabetes Care. 2016.39(Suppl 1). Performed By: #### P T, CMP, CBC, PTT ####[facility] [place], [place] [phone] Potassium [Moles/Vol] 3.8 mmol/L Normal 3.7-5.1 [facility] Comment on above: Performed By: #### P T, CMP, CBC, PTT ####[facility] [place], [place] [phone] Protein [Mass/Vol] 6.3 g/dL Normal 6.3-8.0 [facility] Comment on above: Performed By: #### P T, CMP, CBC, PTT ####[facility] [place], [place] [phone] Sodium [Moles/Vol] 139 mmol/L Normal 136-144 [facility] Comment on above: Performed By: #### P T, CMP, CBC, PTT ####[facility] [place], [place] [phone] Urea nitrogen [Mass/Vol] 35 mg/dL High 7-21 [facility] Comment on above: Performed By: #### P T, CMP, CBC, PTT ####[facility] [address] [place], [place] [phone] NURSING PROGon 09-18-2020 NURSING PROG HNO ID: [id number] Author: Christie Ham RN Service: Nursing Author Type: Registered Nurse Type: Nursing Progress Note Filed: 09/18/2020 5:02 PM Note Text: Nursing Progress Note Patient Name: Cinthya Wilson Patient Location: [place] [address]/E013 Report received from Amanda JOVEL. This note was completed by: Christie Ham [facility] OPERATIVE NOon 09-18-2020 OPERATIVE NO HNO ID: [id number] Author: Yamileth Martin MD Service: Urology Author Type: Physician Type: Operative Report Filed: 09/24/2020 12:32 AM Note Text: The [address] [phone] or [phone] [facility] OPERATIVE REPORT Patient Name: Cinthya Wilson Patient Log ID: [id number] Surgery Date: 09/18/2020 Incision/Procedure Start Time: 2:16 PM Incision Close/Procedure End Time: 2:59 PM Surgeon(s) and Hazardous Waste Technician(s): Surgeon(s) and Role: * Yamileth Martin MD - Primary * Kaleb Young MD - Resident - Assisting Preoperative Diagnosis: Gross hematuria Left upper tract neoplasm Postoperative Diagnosis: Left upper tract inflammation Procedure: Cystoscopy Left ureteral stent removal Left retrograde pyelogram Left diagnostic ureteroscopy with renal pelvis washing, renal pelvis biopsy, and brush biopsy Anesthesia: General Operative Indications: The patient is a 75 year old female with history of left upper tract neoplasm in the context of gross hematuria that had previously underwent biopsy and ureteral stent placement. The risks, benefits, and alternatives were explained to the patient, who agreed to proceed with surgical management. Operative Findings: -orthotopic bilateral ureteral orifices -no tumor in bladder -no hydroureteronephrosis or filling defect in left upper tract -patchy erythema and excoriation of left renal pelvis and calyces -sloughed epithelium throughout left collecting system -no distinct tumor or mass Operative Procedure: The patient was brought to OR 24 by the primary team where a huddle involving the patient, surgeons, anesthesia, and operative staff correctly identified the patient, procedure to be performed, laterality, allergies, antibiotics, and equipment to be used. A weight appropriate dose of cefazolin and gentamicin was administered intravenously prior to the procedure and sequential compression devices were applied to the lower extremities and activated prior to induction of anesthesia. General anesthesia was induced. The prince was placed in the dorsal lithotomy position. All pressure points were padded per protocol and the operative area was prepped and draped in the standard sterile fashion. The 22 Beninese rigid cystourethroscope was inserted atraumatically into the bladder. Currie cystoscopy was performed with a 30 degree lens demonstrating the aforementioned findings. A 0.038 inch hybrid guidewire was passed alongside the previously placed left ureteral stent and into the left upper tract. The previously placed left ureteral stent was then removed with a grasper. A 5 Beninese open-ended ureteral catheter was advanced to the distal ureter over the wire, and the wire was removed. A left retrograde pyelogram was performed demonstrating the aforementioned findings. The wire was replaced and the open-ended catheter was removed. A flexible ureteroscope was then advanced into the left renal pelvis over the wire. A 14Fr hobson catheter was placed. The wire was removed and a full pyeloscopy was performed demonstrating the aforementioned findings. A left renal pelvis washing, cup biopsy, and brush biopsy were all obtained and sent for pathologic and cytopathologic analysis. The entirety of the ureter was visualized on withdrawing the ureteroscope, and there were no abnormalities noted within the ureter. The ureteroscope and Hobson catheter were then removed. The patient tolerated the procedure well and was taken to the recovery area in stable condition. Estimated Blood Loss: 0mL Specimens: Specimen ID Type Site Comments Sent To Cytology 1 Urine left renal pelvis (taken by Naye from surgical support) Cytology Path 1 Tissue left renal pelvis biopsy Pathology Routine Cytology 2 Tissue left renal pelvis brush biopsy (taken by Madonna from surgical support) Cytology Implantable Devices: None Drains: None Complications: None Accidental perforations or lacerations: None Dr. Martin performed the entire procedure with my assistance. Dictated by Kaleb Young MD on behalf of Dr. Yamileth Martin MD --- Kaleb Young MD PGY-6, Urology September 18, 2020 3:30 PM Normal [facility] Protimeon 09-18-2020 PT INR 1.0 Normal 0.9-1.3 [facility] Comment on above: Result Comment: Alana min K Antagonist (VKA) Therapeutic Range: INR 2 to 3 (Target INR of 2.5) Note: For patients treated with VKA drugs, such as warfarin, the [place] [employer] 2012 Guideline recommends a therapeutic INR range of 2 to 3 (target INR of 2.5). This recommendation includes high-risk patients with antiphospholipid syndrome with previous arterial or venous thromboembolism, current-generation mechanical or bioprosthetic aortic heart valve replacement. Note: Patients with mechanical aortic valve replacement and additional risk factors for thromboembolic events (atrial fibrillation, previous thromboembolism, LV dysfunction, hypercoagulable conditions) or an older generation mechanical AVR (i.e., ball in-Cage) or any mechanical MVR should have a INR therapeutic range of 2.5 to 3.5 (target INR of 3). Gumikeytt GH, et al. Chest 2012, 141:7S-47S Sorin RA, et al. JAC 2017, 70: 252-289 Performed By: #### P T, CMP, CBC, PTT ####[facility] [address] [place], [place] [phone] PT Sec 10.5 sec Normal 9.7-13.0 [facility] Comment on above: Performed By: #### P T, CMP, CBC, PTT ####[facility] [address] [place], [place] [phone] SURGICAL PATHOLOGYon 021 SURGICAL PATHOLOGY Specimen originated from [facility] Specimen #: [id number] Submitting Physician: YAMILETH MARTIN M.D. (Q10) __ FINAL DIAGNOSIS Left renal pelvis, biopsy - Benign urothelial tissue with underlying vascular congestion, hemorrhage, and reactive changes. -Negative for malignancy. MURRAY/PTC 09/19/2020 COMMENT This case was reviewed at genitourinary pathology consensus conference and Drs. PAT Soni, Faith Kern, and Faith Glasgow agree with the above interpretation. Tata Vivas MD, PhD (Electronic Signature) SPECIMEN SUBMITTED A: LEFT RENAL PELVIS BIOPSY CLINICAL DATA CANCER OF LEFT RENAL PELVIS AND URETER GROSS DESCRIPTION A. Received in formalin are multiple pieces of castro, soft tissue aggregating to 0.6 x 0.2 x 0.1 cm. Totally submitted in one cassette. Gross examination performed at [facility], [address] [place] [address] 09/18/2020 5:55:02 PM Date of Report: 09/19/2020 Date of Procedure: 09/18/2020 Date of Receipt: 09/18/2020 Submitted by: YAMILETH MARTIN M.D. (Q10) Location: E020 Diagnostic interpretation performed at [place] [address]. CLIA Number: [id number] Normal [facility] Urine Cultureon 09-18-2020 Bacteria identified Cx Nom (U) Sp. Request/Comment: - PREOP STERILIZATION Culture Result - 1,000 - <5,000 CFU/ml Enterococcus faecium --> ABNORMAL ALERT Cephalosporins, clindamycin, and TMP-SMX are not effective for the treatment of enterococcal infections. --> ABNORMAL ALERT <1,000 CFU/ml --> ABNORMAL ALERT Enterococcus faecalis --> ABNORMAL ALERT Insignificant colony count. No further workup. --> ABNORMAL ALERT Cephalosporins, clindamycin, and TMP-SMX are not effective for the treatment of enterococcal infections. --> ABNORMAL ALERT <1,000 CFU/ml --> ABNORMAL ALERT Flower glabrata --> ABNORMAL ALERT No further workup --> ABNORMAL ALERT ORGANISM: Enterococcus faecium METHOD: TRINITY Antibiotic Interp TRINITY Status Nitrofurantoin INTERMEDIATE F ORGANISM: Enterococcus faecium METHOD: Minimum inhibitory concentration (VIZION) Antibiotic Interp TRINITY Status Ampicillin RESISTANT >8 F Vancomycin SUSCEPTIBLE 2 F Levofloxacin RESISTANT >4 F Critically abnormal [facility] Comment on above: Performed By: #### U RCUL ####[facility] [address] [place], [place] [phone] HOSPon 09-08-2020 HOSP Patient:Tj Wilson MRN: Height:5' 4 [Per patient[(1.626 m) Weight:169 lb (76.658 kg) Outpatient Medications as of 09/18/20: insulin 70-30 aspart protamine-aspart (NOVOLOG MIX 70/30) 100 units/mL injection omeprazole (PRILOSEC) 20 mg capsule sulfamethoxazole-trimeth oprim (BACTRIM DS) 800-160 mg per tablet furosemide (LASIX) 20 mg tablet losartan (COZAAR) 100 mg tablet diclofenac sodium (VOLTAREN) 1 % topical gel ergocalciferol, vitamin D2, (DRISDOL) 50,000 unit capsule hydroxychloroquine (PLAQUENIL) 200 mg tablet cholecalciferol, vitamin D3, 4,000 unit cap cyanocobalamin (VITAMIN B-12) 1,000 mcg/mL soln insulin glargine (LANTUS) 100 unit/mL injection metFORMIN (GLUCOPHAGE) 1,000 mg tablet amLODIPine (NORVASC) 5 mg tablet carvedilol (COREG) 25 mg tablet citalopram (CELEXA) 40 mg tablet simvastatin (ZOCOR) 20 mg tablet aspirin, enteric coated (ASPIRIN, ENTERIC COATED) 81 mg EC tablet acetaminophen (TYLENOL) 325 mg tablet Admission/Clinic Administered Medications as of 09/18/20: lidocaine (PF) 10 mg/mL (1 %) 1-2 mg injection (XYLOCAINE) lactated ringers iv infusion ceFAZolin iv piggyback 2 g in D5W (iso-osmotic) 100 mL (ANCEF) Problem List: 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] Cervicalgia [M54.2] Bilateral hand pain [M79.641, M79.642] Shoulder pain, bilateral [M25.511, M25.512] Bilateral low back pain without sciatica [M54.5] Hip pain, bilateral [M25.551, M25.552] Vitamin B12 deficiency (dietary) anemia [D51.8] Vitamin D deficiency [E55.9] 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 It required patient-provider interaction for the medical decision making as documented below. 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 Patient had history of hematuria which was evaluated in [facility] before. She needsd blood transfusion. She has elevated creatinine. Scr 2.02 ng/mL Her non contrast CT is suboptimal but she underwent cystoscopy, left retrograde pyelogram, left ureteroscopy. Due to bleeding his doctor wasn't able to take biopsies. Postprocedure she was transferred to [facility] for observation. Data Reviewed: Most recent labs and imaging results. Labs Creatinine Date Value Ref Range Status 09/03/2020 2.02 (H) 0.58 - 0.96 mg/dL Final 09/02/2020 2.38 (H) 0.58 - 0.96 mg/dL Final 09/01/2020 3.07 (H) 0.58 - 0.96 mg/dL Final 03/22/2015 1.57 (H) 0.70 - 1.40 mg/dL Final Imaging Uploaded in [facility] HISTORY REVIEWED (electronic chart updated): PMH: diabetes, htn, hl, anemia No past surgical history on file. No family history on file. Social History Tobacco Use - Smoking status: Never Smoker Substance Use Topics - Alcohol use: Not on file - Drug use: Not on file Current Outpatient Medications Medication Sig - cephALEXin (KEFLEX) 500 mg capsule Take 1 capsule by mouth four times daily for 10 days. - [START ON 09/13/2020] sulfamethoxazole-trimeth oprim (BACTRIM DS) 800-160 mg per tablet Take 1 tablet by mouth once daily. - furosemide (LASIX) 20 mg tablet Take 1 tablet by mouth once daily. Talk to your primary care doctor about your kidney function before you restart this medication - losartan (COZAAR) 100 mg tablet Take 1 tablet by mouth once daily. Please talk to your primary care doctor about your kidney function before restarting this medication - diclofenac sodium (VOLTAREN) 1 % topical gel apply 2gms to areas of joint pain up to four times a day. Avoid contact with eyes. Do not exceed 32gm/day - ergocalciferol, vitamin D2, (DRISDOL) 50,000 unit capsule (take by mouth with food twice a week, ONE CAPSULE ON FRIDAY AND ONE ON FRIDAY) FOR A TOTAL OF 10 WEEKS. - hydroxychloroquine (PLAQUENIL) 200 mg tablet Take one tab by mouth daily with food x 3, then twice a day thereafter. Sunscreen when outdoors. See ophthalmology every 6-12months on med. - cholecalciferol, vitamin D3, 4,000 unit cap Take by mouth once daily. - cyanocobalamin (VITAMIN B-12) 1,000 mcg/mL soln Inject 1 mL intramuscularly once every month. - insulin glargine (LANTUS) 100 unit/mL injection Inject 70 Units subcutaneously once daily. - metFORMIN (GLUCOPHAGE) 1,000 mg tablet Take 1,000 mg by mouth twice daily with meals. - amLODIPine (NORVASC) 5 mg tablet Take 5 mg by mouth once daily. - carvedilol (COREG) 25 mg t (more content not included)... Normal [facility] Basic Metabolic Panlon 09-03 Anion gap [Moles/Vol] 10 mmol/L Normal 9-18 [facility] Comment on above: Performed By: #### B MP, CBC ####[address] [phone] Calcium [Mass/Vol] 8.5 mg/dL Normal 8.5-10.2 [facility] Comment on above: Performed By: #### B MP, CBC ####[address] [phone] Chloride [Moles/Vol] 109 mmol/L High 97-105 [facility] Comment on above: Performed By: #### B MP, CBC ####[address] [phone] CO2 [Moles/Vol] 21 mmol/L Low 22-30 [facility] Comment on above: Performed By: #### B MP, CBC ####[place] [address] [place], [place] [phone] Creatinine [Mass/Vol] 2.02 mg/dL High 0.58-0.96 [facility] Comment on above: Performed By: #### B MP, CBC ####[place] [address] [place], [place] [phone] eGFR- Amer. 29 Normal [facility] Comment on above: Performed By: #### B MP, CBC ####[place] [address] [place], [place] [phone] eGFR-All Other Races 24 . Normal [facility] Comment on above: Result Comment: eGFR (Estimated GFR) Units of measure: mL/min/1.73 meters squared eGFR is derived from the reexpressed MDRD Study equation using the following parameters: serum creatinine, age, gender and race. The creatinine assay has been calibrated to be traceable to IDMS. An eGFR <60 mL/min/1.73m2 for >3 months is consistent with chronic kidney disease. Refer to KDOQI guidelines for clinical interpretation. In patients with unstable renal function, e.g. those with acute kidney injury, the eGFR may not accurately reflect actual GFR. Performed By: #### B MP, CBC ####[facility] [place], [place] [phone] Glucose [Mass/Vol] 100 mg/dL High 74-99 [facility] Comment on above: Result Comment: The [place] Diabetes [employer] (ADA) provides guidance for cutoff values for fasting glucose and random glucose. The ADA defines fasting as no caloric intake for at least 8 hours. Fasting plasma glucose results between 100 to 125 mg/dL indicate increased risk for diabetes (prediabetes). Fasting plasma glucose results greater than or equal to 126 mg/dL meet the criteria for diagnosis of diabetes. In the absence of unequivocal hyperglycemia, results should be confirmed by repeat testing. In a patient with classic symptoms of hyperglycemia or hyperglycemic crisis, random plasma glucose results greater than or equal to 200 mg/dL meet the criteria for diagnosis of diabetes. Reference: Standards of Medical Care in Diabetes 2016, [place] [employer]. Diabetes Care. 2016.39(Suppl 1). Performed By: #### B MP, CBC ####[facility] [address] [place], [place] [phone] Potassium [Moles/Vol] 4.8 mmol/L Normal 3.7-5.1 [facility] Comment on above: Performed By: #### B MP, CBC ####[facility] [place], [place] [phone] Sodium [Moles/Vol] 140 mmol/L Normal 136-144 [facility] Comment on above: Performed By: #### B MP, CBC ####[place] [address] [place], [place] [phone] Urea nitrogen [Mass/Vol] 44 mg/dL High 7-21 [facility] Comment on above: Performed By: #### B MP, CBC ####[place] [address] [place], [place] [phone] CBCon 09-03-2020 Absolute nRBC <0.01 Normal <0.01 [facility] Comment on above: Performed By: #### B MP, CBC ####[place] [address] [place] [address], [place] [phone] Erythrocyte distribution width (RBC) [Ratio] 16.5 % High 11.5-15.0 [facility] Comment on above: Performed By: #### B MP, CBC ####[place] [address] [place], [place] [phone] Hematocrit (Bld) [Volume fraction] 29.0 % Low 36.0-46.0 [facility] Comment on above: Performed By: #### B MP, CBC ####[place] [address] [place], [place] [phone] Hemoglobin (Bld) [Mass/Vol] 8.8 g/dL Low 11.5-15.5 [facility] Comment on above: Performed By: #### B MP, CBC ####[place] [address] [place], [place] [phone] MCH 27.8 pG Normal 26.0-34.0 [facility] Comment on above: Performed By: #### B MP, CBC ####[place] [address] [place] [place], [place] [phone] MCHC (RBC) [Mass/Vol] 30.3 g/dL Low 30.5-36.0 [facility] Comment on above: Performed By: #### B MP, CBC ####[place] [address] [place], [place] [phone] MCV (RBC) [Entitic vol] 91.8 fL Normal 80.0-100.0 [facility] Comment on above: Performed By: #### B MP, CBC ####[facility] [place], [place] [phone] Platelet mean volume (Bld) [Entitic vol] 9.7 fL Normal 9.0-12.7 [facility] Comment on above: Performed By: #### B MP, CBC ####[facility] [place], [place] [phone] Platelets (Bld) [#/Vol] 259 10*3/uL Normal 150-400 [facility] Comment on above: Performed By: #### B MP, CBC ####[facility] [place] [address] [phone] RBC (Bld) [#/Vol] 3.16 10*6/uL Low 3.90-5.20 [facility] Comment on above: Performed By: #### B MP, CBC ####[address] [phone] WBC (Bld) [#/Vol] 8.53 10*3/uL Normal 3.70-11.00 [facility] Comment on above: Performed By: #### B MP, CBC ####[facility] [place] [address] [phone] NURSING PROGon 09-03-2020 NURSING PROG HNO ID: [id number] Author: Allan Morrell RN Service: Nursing Author Type: Registered Nurse Type: Nursing Progress Note Filed: 09/03/2020 6:33 PM Note Text: Nursing Progress Note Patient Name: Cinthya Wilson Patient Location: H060 035/[id number] Daily Note: Patient discharged home in stable condition. DC instructions gone over with patient who verbalizes an understanding. All questions answered at time of discharge. Patient left unit via wheelchair from [facility] and driven home by son. This note was completed by: Allan Morrell Normal [facility] Basic Metabolic Panlon 09-02 Anion gap [Moles/Vol] 13 mmol/L Normal 9-18 [facility] Comment on above: Performed By: #### B MP, CBC ####[place] [address] [place], [place] [phone] Calcium [Mass/Vol] 8.2 mg/dL Low 8.5-10.2 [facility] Comment on above: Performed By: #### B MP, CBC ####[place] [address] [place], [place] [phone] Chloride [Moles/Vol] 108 mmol/L High 97-105 [facility] Comment on above: Performed By: #### B MP, CBC ####[place] [address] [place] [address], [place] [phone] CO2 [Moles/Vol] 18 mmol/L Low 22-30 [facility] Comment on above: Performed By: #### B MP, CBC ####[facility] [place] [address], [place] [phone] Creatinine [Mass/Vol] 2.38 mg/dL High 0.58-0.96 [facility] Comment on above: Performed By: #### B MP, CBC ####[place] [address] [place] [address], [place] [phone] eGFR- Amer. 24 Normal [facility] Comment on above: Performed By: #### B MP, CBC ####[place] [address] [place] [address], [place] [phone] eGFR-All Other Races 20 . Normal [facility] Comment on above: Result Comment: eGFR (Estimated GFR) Units of measure: mL/min/1.73 meters squared eGFR is derived from the reexpressed MDRD Study equation using the following parameters: serum creatinine, age, gender and race. The creatinine assay has been calibrated to be traceable to IDMS. An eGFR <60 mL/min/1.73m2 for >3 months is consistent with chronic kidney disease. Refer to KDOQI guidelines for clinical interpretation. In patients with unstable renal function, e.g. those with acute kidney injury, the eGFR may not accurately reflect actual GFR. Performed By: #### B MP, CBC ####[facility] [place], [place] [phone] Glucose [Mass/Vol] 127 mg/dL High 74-99 [facility] Comment on above: Result Comment: The [place] Diabetes [employer] (ADA) provides guidance for cutoff values for fasting glucose and random glucose. The ADA defines fasting as no caloric intake for at least 8 hours. Fasting plasma glucose results between 100 to 125 mg/dL indicate increased risk for diabetes (prediabetes). Fasting plasma glucose results greater than or equal to 126 mg/dL meet the criteria for diagnosis of diabetes. In the absence of unequivocal hyperglycemia, results should be confirmed by repeat testing. In a patient with classic symptoms of hyperglycemia or hyperglycemic crisis, random plasma glucose results greater than or equal to 200 mg/dL meet the criteria for diagnosis of diabetes. Reference: Standards of Medical Care in Diabetes 2016, [place] [employer]. Diabetes Care. 2016.39(Suppl 1). Performed By: #### B MP, CBC ####[facility] [address] [place], [place] [phone] Potassium [Moles/Vol] 4.1 mmol/L Normal 3.7-5.1 [facility] Comment on above: Performed By: #### B MP, CBC ####[facility] [place], [place] [phone] Sodium [Moles/Vol] 139 mmol/L Normal 136-144 [facility] Comment on above: Performed By: #### B MP, CBC ####[place] [address] [place], [place] [phone] Urea nitrogen [Mass/Vol] 54 mg/dL High 7-21 [facility] Comment on above: Performed By: #### B MP, CBC ####[place] [address] [place], [place] [phone] CBCon 09-02-2020 Absolute nRBC <0.01 Normal <0.01 [facility] Comment on above: Performed By: #### B MP, CBC ####[place] [address] [place], [place] [phone] Erythrocyte distribution width (RBC) [Ratio] 16.8 % High 11.5-15.0 [facility] Comment on above: Performed By: #### B MP, CBC ####[place] [address] [place], [place] [phone] Hematocrit (Bld) [Volume fraction] 27.8 % Low 36.0-46.0 [facility] Comment on above: Performed By: #### B MP, CBC ####[address] [phone] Hemoglobin (Bld) [Mass/Vol] 8.5 g/dL Low 11.5-15.5 [facility] Comment on above: Performed By: #### B MP, CBC ####[place] [address] [place], [place] [phone] MCH 27.9 pG Normal 26.0-34.0 [facility] Comment on above: Performed By: #### B MP, CBC ####[place] [address] [place], [place] [phone] MCHC (RBC) [Mass/Vol] 30.6 g/dL Normal 30.5-36.0 [facility] Comment on above: Performed By: #### B MP, CBC ####[place] [address] [place], [place] [phone] MCV (RBC) [Entitic vol] 91.1 fL Normal 80.0-100.0 [facility] Comment on above: Performed By: #### B MP, CBC ####[facility] [place], [place] [phone] Platelet mean volume (Bld) [Entitic vol] 9.8 fL Normal 9.0-12.7 [facility] Comment on above: Performed By: #### B MP, CBC ####[address] [phone] Platelets (Bld) [#/Vol] 252 10*3/uL Normal 150-400 [facility] Comment on above: Performed By: #### B MP, CBC ####[address] [phone] RBC (Bld) [#/Vol] 3.05 10*6/uL Low 3.90-5.20 [facility] Comment on above: Performed By: #### B MP, CBC ####[address] [phone] WBC (Bld) [#/Vol] 11.29 10*3/uL High 3.70-11.00 [facility] Comment on above: Performed By: #### B MP, CBC ####[address] [phone] CNDSon 09-02-2020 DS HNO ID: [id number] Author: Fredo De Jesus MD Service: Urology Author Type: Resident Type: Discharge Summary Filed: 09/03/2020 9:47 AM Note Text: -------- Attestation signed by Teofilo Hess MD at 09/03/2020 10:14 AM Discussed with resident, agree with plan Teofilo Hess M.D. -------- [facility] [place] [phone] or [phone] [facility] R M A T I O N --- [facility] DOCUMENT DISCHARGE SUMMARY Patient Name: Cinthya Wilson Patient Admission Date: 09/01/2020 Discharge Date: 09/03/20 Attending Physician: Teofilo Hess MD Principal Diagnosis: Hematuria, likely from Upper Tract mass Secondary Diagnoses: HTN DM2 CKD3 with DAVID present on admission CAD Bacteremia with E. Coli present on admission HLD Operations During Hospitalization: None Procedures Performed While Hospitalized: None Reason for Hospitalization: 75 year old?female with history of HTN, DM2, stage III CKD, CAD s/p 1 stent in 2010, and polyarticular joint pain who presented to [facility] for evaluation of hematuria, she underwent a cysto and retrograde pyelogram with evidence of filling defects in the upper ureter and renal pelvis, therefore ureteroscopy was attempted and visualized possible tumor in the upper tract. This was not biopsied and a stent was placed 6 Fr multi-length JJ stent on 08/30/20. Her course was complicated by persistent hematuria requiring CBI therefore she was transferred here. Hospital Course: Cinthya Wilson presented with a 3-way hobson catheter for hematuria, her urine was clear on admission. Her CBI was weaned and her hobson catheter was removed. She passed her trial of void. We learned her blood and urine cultures were positive for E. Coli from the OSH, and essentially were curire sensitive to antibiotics. She was continued on ceftriaxone from the outside hospital since her cultures were sensitive. She was able to ambulate with a walker, tolerating regular diet, and she had no signs or symptoms of infection. She was deemed fit for discharge. She will return to clinic for further evaluation of her upper tract concern for papillary tumors in the upper ureter and renal pelvis on ureteroscopy from the outside hospital. She was sent home on 10 days of cipro and then prophylactic bactrim until she was seen in clinic. Patient Condition at Discharge: Improved Discharge Disposition: Home Information Provided to the Patient: Patient was given a copy of Discharge Instructions Discharge Medications: Current Discharge Medication List START taking these medications sulfamethoxazole-trimeth oprim (BACTRIM DS,SEPTRA DS) 1 tablet Take 1 tablet by mouth once daily. Qty: 30 tablet Refills: 0 cephALEXin (KEFLEX) 500 mg Take 500 mg by mouth four times daily. Qty: 40 capsule Refills: 0 CONTINUE these medications which have CHANGED furosemide (LASIX) 20 mg Take 20 mg by mouth once daily. Talk to your primary care doctor about your kidney function before you restart this medication losartan (COZAAR) 100 mg Take 100 mg by mouth once daily. Please talk to your primary care doctor about your kidney function before restarting this medication CONTINUE these medications which have NOT CHANGED diclofenac sodium (VOLTAREN) 1 % topical gel apply 2gms to areas of joint pain up to four times a day. Avoid contact with eyes. Do not exceed 32gm/day Qty: 5 Tube Refills: 5 Associated Diagnoses:Secondary osteoarthritis of multiple sites ergocalciferol, vitamin D2, (DRISDOL) 50,000 unit capsule (take by mouth with food twice a week, ONE CAPSULE ON FRIDAY AND ONE ON FRIDAY) FOR A TOTAL OF 10 WEEKS. Qty: 20 capsule Refills: 0 Associated Diagnoses:Vitamin D deficiency hydroxychloroquine (PLAQUENIL) 200 mg tablet Take one tab by mouth daily with food x 3, then twice a day thereafter. Sunscreen when outdoors. See ophthalmology every 6-12months on med. Qty: 60 tablet Refills: 3 Associated Diagnoses:Secondary osteoarthritis of multiple sites; DIVYA positive; Elevated sed rate cholecalciferol, vitamin D3, 4,000 unit cap Take by mouth once daily. cyanocobalamin 1,000 mcg Inject 1,000 mcg intramuscularly once every month. Qty: 1 Vial Refills: 12 Associated Diagnoses:Vitamin B12 deficiency (dietary) anemia insulin glargine (LANTUS) 70 Units Inject 70 Units subcutaneously once daily. metFORMIN (GLUCOPHAGE) 1,000 mg Take 1,000 mg by mouth twice daily with meals. amLODIPine (NORVASC) 5 mg Take 5 mg by mouth once daily. carvedilol (COREG) 25 mg Take 25 mg by mouth twice daily with meals. citalopram (more content not included)... Normal [facility] NURSING PROGon 09-02-2020 NURSING PROG HNO ID: [id number] Author: Leah Macias RN Service: ? Author Type: Registered Nurse Type: Nursing Progress Note Filed: 09/02/2020 3:01 PM Note Text: Nursing Progress Note Patient Name: Cinthya Wilson Patient Location: [address] [facility]/[id number] Daily Note: Pt tearful and states to RN that coordinating transportation back to Clinic for Outpatient follow-up is going to be challenging. Patient does not drive and is the primary caregiver for her . Urology team notified that it was the patient's wishes to stay inpatient and possible arrange for procedure while inpatient. Explained to patient that this may not be possible, depending on scheduling. Urology made aware of patient's request. This note was completed by: Leah Phipps [facility] [place] 09-01-2020 aPTT Coag (Bld) [Time] 27.2 s Normal 23.0-32.4 [facility] [facility] Comment on above: Result Comment: Unfr actionated Heparin Therapeutic Ranges: Standard Heparin Nomogram: 53 to 78 seconds (anti-Xa level of 0.3 to 0.7 U/ml) Low Dose/ACS Nomogram: 49 to 67 seconds (anti-Xa level of 0.2 to 0.5 U/ml) Stroke Treatment Nomogram: 49 to 67 seconds (anti-Xa level of 0.2 to 0.5 U/ml) Note: The APTT therapeutic range has been determined for the current lot of laboratory APTT reagent in use throughout the [facility]. Performed By: #### P TT, PT ####[place] [address] [place], [place] [phone] Basic Metabolic Panlon 09-01 Anion gap [Moles/Vol] 14 mmol/L Normal 9-18 [facility] Comment on above: Performed By: #### C YAHIR, BMP ####[place] [address] [place], [place] [phone] Calcium [Mass/Vol] 8.0 mg/dL Low 8.5-10.2 [facility] Comment on above: Performed By: #### C YAHIR, BMP ####[place] [address] [place], [place] [phone] Chloride [Moles/Vol] 104 mmol/L Normal 97-105 [facility] Comment on above: Performed By: #### C BCBEVERLEYF, BMP ####[place] [address] [place], [place] [phone] CO2 [Moles/Vol] 18 mmol/L Low 22-30 [facility] Comment on above: Performed By: #### C BCBEVERLEYF, BMP ####[place] [address] [place] [place], [place] [phone] Creatinine [Mass/Vol] 3.07 mg/dL High 0.58-0.96 [facility] Comment on above: Performed By: #### C BCDIF, BMP ####[facility] [place], [place] [phone] eGFR- Amer. 18 Normal [facility] Comment on above: Performed By: #### C BCDIF, BMP ####[facility] [place] [address] [phone] eGFR-All Other Races 15 . Normal [facility] Comment on above: Result Comment: eGFR (Estimated GFR) Units of measure: mL/min/1.73 meters squared eGFR is derived from the reexpressed MDRD Study equation using the following parameters: serum creatinine, age, gender and race. The creatinine assay has been calibrated to be traceable to IDMS. An eGFR <60 mL/min/1.73m2 for >3 months is consistent with chronic kidney disease. Refer to KDOQI guidelines for clinical interpretation. In patients with unstable renal function, e.g. those with acute kidney injury, the eGFR may not accurately reflect actual GFR. Performed By: #### C BCDIF, BMP ####[address] [phone] Glucose [Mass/Vol] 192 mg/dL High 74-99 [facility] Comment on above: Result Comment: The [place] Diabetes Association (ADA) provides guidance for cutoff values for fasting glucose and random glucose. The ADA defines fasting as no caloric intake for at least 8 hours. Fasting plasma glucose results between 100 to 125 mg/dL indicate increased risk for diabetes (prediabetes). Fasting plasma glucose results greater than or equal to 126 mg/dL meet the criteria for diagnosis of diabetes. In the absence of unequivocal hyperglycemia, results should be confirmed by repeat testing. In a patient with classic symptoms of hyperglycemia or hyperglycemic crisis, random plasma glucose results greater than or equal to 200 mg/dL meet the criteria for diagnosis of diabetes. Reference: Standards of Medical Care in Diabetes 2016, [place] [employer]. Diabetes Care. 2016.39(Suppl 1). Performed By: #### C BCDIF, BMP ####[address] [phone] Potassium [Moles/Vol] 4.5 mmol/L Normal 3.7-5.1 [facility] Comment on above: Performed By: #### C BCDIF, BMP ####[place] [address] [place], [place] [phone] Sodium [Moles/Vol] 136 mmol/L Normal 136-144 [facility] Comment on above: Performed By: #### C BCDIF, BMP ####[place] [address] [place], [place] [phone] Urea nitrogen [Mass/Vol] 64 mg/dL High 7-21 [facility] Comment on above: Performed By: #### C BCDIF, BMP ####[place] [address] [place] [place], [place] [phone] CBC and Differentialon 09-01 Abs Baso <0.03 Normal <0.11 [facility] Comment on above: Performed By: #### C BCDIF, BMP ####[place] [address] [place] [place], [place] [phone] Abs Mchenry 0.75 k/uL Normal <0.87 [facility] Comment on above: Performed By: #### C BCDIF, BMP ####[place] [address] [place] [place], [place] [phone] Abs Neut 11.48 k/uL High 1.45-7.50 [facility] Comment on above: Performed By: #### C BCDIF, BMP ####[place] [address], [place] [phone] Absolute nRBC <0.01 Normal <0.01 [facility] Comment on above: Performed By: #### C BCDIF, BMP ####[place] [address] [place], [place] [phone] Basophils/100 WBC (Bld) 0.1 % Normal [facility] Comment on above: Performed By: #### C BCDIF, BMP ####[place] [address] [place] [phone] DTYPE Auto Diff Normal [facility] Comment on above: Performed By: #### C BCDIF, BMP ####[place] [address] [place] [phone] Eosinophils (Bld) [#/Vol] 0.16 10*3/uL Normal <0.46 [facility] Comment on above: Performed By: #### C BCDIF, BMP ####[place] [address] [place] [phone] Eosinophils/100 WBC (Bld) 1.2 % Normal [facility] Comment on above: Performed By: #### C BCDIF, BMP ####[place] [address] [place] [phone] Erythrocyte distribution width (RBC) [Ratio] 17.0 % High 11.5-15.0 [facility] Comment on above: Performed By: #### C BCDIF, BMP ####[place] [address] [place] [phone] Hematocrit (Bld) [Volume fraction] 26.3 % Low 36.0-46.0 [facility] Comment on above: Performed By: #### C BCDIF, BMP ####[place] [address] [place] [phone] Hemoglobin (Bld) [Mass/Vol] 8.1 g/dL Low 11.5-15.5 [facility] Comment on above: Performed By: #### C BCDIF, BMP ####[place] [address] [place] [phone] Lymphocytes (Bld) [#/Vol] 0.85 10*3/uL Low 1.00-4.00 [facility] Comment on above: Performed By: #### C BCDIF, BMP ####[place] [address] [place] [place], [place] [phone] Lymphocytes/100 WBC (Bld) 6.4 % Normal [facility] Comment on above: Performed By: #### C BCDIF, BMP ####[place] [address], [place] [phone] MCH 28.4 pG Normal 26.0-34.0 [facility] Comment on above: Performed By: #### C BCDIF, BMP ####[place] [address] [place] [phone] MCHC (RBC) [Mass/Vol] 30.8 g/dL Normal 30.5-36.0 [facility] Comment on above: Performed By: #### C BCDIF, BMP ####[place] [address] [place] [phone] MCV (RBC) [Entitic vol] 92.3 fL Normal 80.0-100.0 [facility] Comment on above: Performed By: #### C BCDIF, BMP ####[place] [address] [place] [phone] Monocytes/100 WBC (Bld) 5.7 % Normal [facility] Comment on above: Performed By: #### C BCDIF, BMP ####[place] [address] [place] [phone] Neutrophils/100 WBC (Bld) 86.6 % Normal [facility] Comment on above: Performed By: #### C BCDIF, BMP ####[place] [address] [place] [phone] NRBCs 0.0 /100 WBC Normal 0 [facility] Comment on above: Performed By: #### C BCDIF, BMP ####[place] [address], [place] [phone] Platelet mean volume (Bld) [Entitic vol] 9.9 fL Normal 9.0-12.7 [facility] Comment on above: Performed By: #### Tara SINCLAIR, BMP ####[address] [phone] Platelets (Bld) [#/Vol] 205 10*3/uL Normal 150-400 [facility] Comment on above: Performed By: #### Tara SINCLAIR, BMP ####[address] [phone] RBC (Bld) [#/Vol] 2.85 10*6/uL Low 3.90-5.20 [facility] Comment on above: Performed By: #### Tara SINCLAIR, BMP ####[address] [phone] WBC (Bld) [#/Vol] 13.25 10*3/uL High 3.70-11.00 [facility] Comment on above: Performed By: #### Tara SINCLAIR, BMP ####[address] [phone] Confirm Blood Typeon 021 ABO/RH(D) Positive Normal [facility] Comment on above: Performed By: #### Tara ONABO ####[address] [phone] HISTORY PHYSICALon 1 HISTORY PHYSICAL HNO ID: [id number] Author: Mick Gallardo MD Service: Urology Author Type: Resident Type: HANDP Filed: 09/01/2020 7:18 AM Note Text: -------- Attestation signed by Teofilo Hess MD at 09/03/2020 10:16 AM Discussed with resident, agree with plan Teofilo Hess M.D. -------- [facility] UROLOGY HANDP Service Date: 09/01/2020 Service Time: 6:48 AM ASSESSMENT AND PLAN: 75 year old female with history of HTN, DM2, stage III CKD, CAD s/p 1 stent in 2010, and polyarticular joint pain who presented to [facility] with left-sided abdominal pain and was transferred to [facility] for definitive management of a left intrarenal mass c/f urothelial carcinoma and worsening renal function. Patient would benefit from further evaluation of her left hydronephrosis s/p stent placement. Recommendations: - Admission labs, COVID, T+S, coags - NPO, mIVF - IV Rocephin - Urine culture - KUB to assess stent position - Follow up OSH biopsy pathology report Plan of care discussed with chief resident, Dr. Young, and staff, Dr. Hess. Mick Gallardo MD Urology Resident PGY-2 Pager: [phone] For weekend or after hours issues [place] [phone] HPI: 75 year old female with history of HTN, DM2, stage III CKD, CAD s/p 1 stent in 2010, and polyarticular joint pain who presented to [facility] with left-sided abdominal pain and was transferred to [facility] for definitive management of a left intrarenal mass c/f urothelial carcinoma. Had acute onset left lower quadrant abdominal pain for which she presented to [facility] 08/29. Associated with nausea. Originally thought this was due to constipation as patient is on hydrocodone 7.5 mg QID for chronic pain. Underwent CT which re-demonstrated known diverticulosis as well as new finding of left-sided hydronephrosis with narrowing/stricture of the distal ureter. She was given Rocephin and admitted. UA with negative nitrites/LE; urine culture sent and grew 4000 cfu/ml E. coli. Blood cultures grew E. Coli in 2/2 bottles. Cr 2.69, WBC 15.2, Hb 9.8 on admission. Pain improved with medication. Urology consulted for worsening renal function and leukocytosis, possible sepsis and recommendation made for cystoscopy, left RPG, left JJ stent, possible URS. Operative report from 08/30 indicates findings included left hydronephrosis, left renal pelvic and UPJ neoplasm, DAVID, and gross hematuria with efflux of bloody urine from left UO on cystoscopy. Visualization difficult during ureteroscopy but a biopsy within the left renal pelvis was obtained. A 3-way 20Fr catheter was placed and CBI was initiated. 08/31 patient's pain was improved and CBI was held and monitored. Labs did not show improvement 09/01 with SCr 3.24. WBC similar at 13.2 and Hb 7.9. Previous abdominal surgeries include x2 and PD catheter placement (with removal as patient did n't require dialysis) PAST MEDICAL HISTORY: No past medical history on file. PAST SURGICAL HISTORY: No past surgical history on file. FAMILY HISTORY: No family history on file. SOCIAL HISTORY: Social History Tobacco Use - Smoking status: Never Smoker Substance Use Topics - Alcohol use: Not on file - Drug use: Not on file MEDICATIONS: diclofenac sodium (VOLTAREN) 1 % topical gel, apply 2gms to areas of joint pain up to four times a day. Avoid contact with eyes. Do not exceed 32gm/day ergocalciferol, vitamin D2, (DRISDOL) 50,000 unit capsule, (take by mouth with food twice a week, ONE CAPSULE ON FRIDAY AND ONE ON FRIDAY) FOR A TOTAL OF 10 WEEKS. hydroxychloroquine (PLAQUENIL) 200 mg tablet, Take one tab by mouth daily with food x 3, then twice a day thereafter. Sunscreen when outdoors. See ophthalmology every 6-12months on med. furosemide (LASIX) 20 mg tablet, Take 20 mg by mouth once daily. cholecalciferol, vitamin D3, 4,000 unit cap, Take by mouth once daily. cyanocobalamin (VITAMIN B-12) 1,000 mcg/mL soln, Inject 1 mL intramuscularly once every month. insulin glargine (LANTUS) 100 unit/mL injection, Inject 70 Units subcutaneously once daily. metFORMIN (GLUCOPHAGE) 1,000 mg tablet, Take 1,000 mg by mouth twice daily with meals. losartan (COZAAR) 100 mg tablet, Take 100 mg by mouth once daily. amLODIPine (NORVASC) 5 mg tablet, Take 5 mg by mouth once daily. carvedilol (COREG) 25 mg tablet, Take 25 mg by mouth twice daily with meals. citalopram (CELEXA) 40 mg tablet, Take 40 mg by mouth once daily. simvastatin (ZOCOR) 20 mg tablet, Take 20 mg by mouth daily at bedtime. aspirin, enteric coated (ASPIRIN, ENTERIC COATED) 81 mg EC tablet, Take 81 mg by mouth once daily. acetaminophen (TYLENOL) 325 mg tablet, Take 650 mg by mouth as need (more content not included)... Normal [facility] Intermed Rapid COVIDon 09-01 SARS-CoV-2 (COVID-19) RNA MADISON+probe Ql (Unsp spec) UPPER RESPIRATORY TRACT SWAB Normal [facility] Comment on above: Performed By: #### I TCOVD ####[facility] [address] [place], [place] [phone] SARS-CoV-2 (COVID-19) RNA MADISON+probe Ql (Unsp spec) Negative for COVID19 (SARS CoV2) by RT-PCR or equivalent method. Normal Negative for COVID19 (SARS CoV2) by RT-PCR or equivalent method. [facility] Comment on above: Result Comment: This test was developed and its performance characteristics determined by [facility]'s [facility] [place]. This test has been authorized by FDA under an Emergency Use Authorization (EUA). This test has been validated in accordance with the FDA's Guidance Document Policy for Diagnostics Testing in Laboratories Certified to Perform High Complexity Testing under CLIA prior to Emergency use Authorization for Coronavirus Disease 2019 during the Public Health Emergency issued on April 10, 2019. Test performed by [facility], [facility] [place], [address], [place] [address]. Performed By: #### I TCOVD ####[facility] [place], [place] [phone] Protimeon 09-01-2020 PT INR 1.0 Normal 0.9-1.3 [facility] Comment on above: Result Comment: Alana min K Antagonist (VKA) Therapeutic Range: INR 2 to 3 (Target INR of 2.5) Note: For patients treated with VKA drugs, such as warfarin, the [place] [employer] 2012 Guideline recommends a therapeutic INR range of 2 to 3 (target INR of 2.5). This recommendation includes high-risk patients with antiphospholipid syndrome with previous arterial or venous thromboembolism, current-generation mechanical or bioprosthetic aortic heart valve replacement. Note: Patients with mechanical aortic valve replacement and additional risk factors for thromboembolic events (atrial fibrillation, previous thromboembolism, LV dysfunction, hypercoagulable conditions) or an older generation mechanical AVR (i.e., ball in-Cage) or any mechanical MVR should have a INR therapeutic range of 2.5 to 3.5 (target INR of 3). Onelia LEOS, et al. Chest 2012, 141:7S-47S Sorin RA, et al. [facility] 2017, 70: 252-289 Performed By: #### P TT, PT ####[place] [address] [place], [place] [phone] PT Sec 10.4 sec Normal 9.7-13.0 [facility] Comment on above: Performed By: #### P TT, PT ####[place] [address] [place], [place] [phone] Type and Screenon 09-01-2020 ABO/RH(D) Positive Normal [facility] Comment on above: Performed By: #### T SCR ####[facility] [place], [place] [phone] Urine Cultureon 09-01-2020 Bacteria identified Cx Nom (U) Sp. Request/Comment: - Specimen received in preservative Culture Result - No growth (<1,000 CFU/ml) Normal [facility] Comment on above: Performed By: #### U RCUL ####[facility] [address] [place], [place] [phone] XR ABDOMEN 1V SUPINEon 09-01 XR ABDOMEN 1V SUPINE * * *Final Report* * * DATE OF EXAM: Sep 01 2020 9:43AM OFELIA 5289 - XR ABDOMEN 1V SUPINE / PROCEDURE REASON: Abd pain, unspecified * * * * Physician Interpretation * * * * ABDOMEN PORTABLE 09/01/2020 at 9:41 AM HISTORY: Assess LEFT ureteral stent. TECHNIQUE: Single View, Supine Abdomen; Number of Images: 1 with postprocessing. COMPARISON: CT abdomen and pelvis from OSH 08/29/2020 RESULT: See impression. IMPRESSION: Left double-J ureteral stent with the proximal pigtail over the LEFT mid abdomen and the distal pigtail over the mid pelvis. Moderate gastric dilation. No dilated bowel. Degenerative changes of the spine. Motel Keeper: PATY Transcribe Date/Time: Sep 01 2020 10:33A Dictated by : VINEET HANLEY This examination was interpreted and the report reviewed and electronically signed by: SAURABH MAJANO MD on Sep 01 2020 10:45AM EST [id number] Normal [facility] OT-XR CHEST 2 V IMPORTon OT-XR CHEST 2 V IMPORT Images were obtai dmitriy outside of [facility] [id number] Normal [facility] OT-XR RETROGRADE PYELOGRAM I MPORTon 08-30-2020 OT-XR RETROGRADE PYELOGRAM IMPORT Images were obtained outside of [facility] [id number] Normal [facility] OT-CT ABD/PELVIS WO CON IMPO RTon 08-29-2020 OT-CT ABD/PELVIS WO CON IMPORT Images were obtained outside of [facility] [id number] Normal [facility] Automated basophil %on 05-16 Basophils/100 WBC (Bld) 0.3 % [facility] Automated basophil counton 0 05-16-2020 Basophils (Bld) [#/Vol] 0.0 10*3/uL 0.0-0.2 [facility] Automated blood lymphocyte c ount (number/volume)on 05-16-2020 Lymphocytes (Bld) [#/Vol] 0.8 10*3/uL 1.00-4.8 [facility] Automated blood lymphocyte c ount as percentage of total leukocyteson 05-16-2020 Lymphocytes/100 WBC (Bld) 10.5 % [facility] Automated blood monocyte cou nton 05-16-2020 Monocytes (Bld) [#/Vol] 0.9 10*3/uL 0.0-0.8 [facility] Automated blood platelet cou nt (count/volume)on 05-16-2020 Platelets (Bld) [#/Vol] 364 10*3/uL 150-450 [facility] Automated blood platelet marciano n volume measurementon 05-16-2020 Platelet mean volume (Bld) [Entitic vol] 7.5 fL 6.3-10.7 [facility] Automated eosinophil %on Eosinophils/100 WBC (Bld) 2.0 % [facility] Automated eosinophil counton 05-16-2020 Eosinophils (Bld) [#/Vol] 0.2 10*3/uL 0.0-0.45 [facility] Automated erythrocyte distri bution width ratioon 05-16-2020 Erythrocyte distribution width (RBC) [Ratio] 20.9 % 11.9-15.3 [facility] Automated erythrocyte mean c orpuscular hemoglobin (mass per erythrocyte)on 05-16-2020 MCH (RBC) [Entitic mass] 28.3 pg 24.7-34.3 [facility] Automated erythrocyte mean c orpuscular hemoglobin concentration measurement (mass/volon 05-16-2020 MCHC (RBC) [Mass/Vol] 33.0 g/dL 32.0-35.0 [facility] Automated erythrocyte mean c orpuscular volumeon 05-16-2020 MCV (RBC) [Entitic vol] 85.9 fL 80-100 [facility] Automated monocyte %on 05-16 Monocytes/100 WBC (Bld) 11.6 % [facility] Automated neutrophil %on Neutrophils/100 WBC (Bld) 75.6 % [facility] Blood erythrocytes automated count (number/volume)on 05-16-2020 RBC (Bld) [#/Vol] 3.44 10*6/uL 3.60-5.00 [facility] Blood hemoglobin measurement (mass/volume)on 05-16-2020 Hemoglobin (Bld) [Mass/Vol] 9.8 g/dL 11.8-15.4 [facility] Blood leukocytes automated c ount (number/volume)on 05-16-2020 WBC (Bld) [#/Vol] 7.9 10*3/uL 4.5-11.0 [facility] Blood neutrophil count by au tomated method (number/volume)on 05-16-2020 Neutrophils (Bld) [#/Vol] 5.9 10*3/uL 1.8-7.7 [facility] COVID-19 Positive/Negativeon 05-16-2020 COVID-19 Positive/Negative Negative Negative [facility] Comment on above: Reference: NegativeT esting for SARS-CoV-2 by RT-PCRThis test was developed and its performance characteristics determined by [employer] ([employer] and validated at the [facility]. This test has not been FDA cleared or approved. This test has been authorized by FDA under an Emergency Use Authorization (EUA). This test has been validated in accordance with the FDA's Guidance Document (Policy for Diagnostics Testing in Laboratories Certified to Perform High Complexity Testing under CLIA prior to Emergency Use Authorization for Coronavirus Disease-2019 during the Public Health Emergency) issued on May 13, 2019. This test is only authorized for the duration of time the declaration that circumstances exist justifying the authorization of the emergency use of in vitro diagnostic tests for detection of SARS-CoV-2 virus and/or diagnosis of COVID-19 infection under section 564(b)(1) of the Act, 21 U.S.C. 360bbb-3(b)(1), unless the authorization is terminated or revoked sooner. Estimated glomerular filtrat ion rate (GFR) non- Americanon 05-16-2020 GFR/1.73 sq M predicted among non-blacks MDRD (S/P/Bld) [Vol rate/Area] 23 mL/Min [facility] Hematocrit [Volume Fraction] of Blood by Automated counton 05-16-2020 Hematocrit (Bld) [Volume fraction] 29.6 % 34.0-46.4 [facility] Otheron 05-16-2020 Coronavirus 2019 PCR Interp N/A [facility] GFR/1.73 sq M.predicted MDRD (S/P/Bld) [Vol rate/Area] 28 mL/Min [facility] Comment on above: GFR estimated refere nce range: According to KDOQI guidelines, <60 ml/min/1.73m2 is sufficient to diagnose a patient with chronic kidney disease. Nucleated RBC/100 WBC (Bld) [Ratio] 0.1 % 0-0.5 [facility] Creatinine Clearance (Chem N/A [facility] Serum or plasma calcium eugenie urement (mass/volume)on 05-16-2020 Calcium [Mass/Vol] 9.3 mg/dL 8.2-10.2 [facility] Serum or plasma chloride marciano surement (moles/volume)on 05-16-2020 Chloride [Moles/Vol] 97 mmol/L 95-114 [facility] Serum or plasma creatinine m easurement with calculation of estimated glomerular filtron 05-16-2020 Creatinine [Mass/Vol] 2.12 mg/dL 0.44-1.03 [facility] Serum or plasma glucose eugenie urement (mass/volume)on 05-16-2020 Glucose [Mass/Vol] 169 mg/dL 70-100 [facility] Comment on above: ADA recommended refe rence rangeRandom Glucose Reference Range is dependent on time and content of last meal. Glucose of more than 200 mg/dL in a nonstressed, ambulatory subject supports the diagnosis of Diabetes Mellitus. Serum or plasma potassium me asurement (moles/volume)on 05-16-2020 Potassium [Moles/Vol] 4.6 mmol/L 3.5-5.1 [facility] Serum or plasma sodium measu rement (moles/volume)on 05-16-2020 Sodium [Moles/Vol] 133 mmol/L 136-146 [facility] Serum or plasma total carbon dioxide measurement (moles/volume)on 05-16-2020 CO2 [Moles/Vol] 26.1 mmol/L 22.0-30.0 [facility] Serum or plasma urea nitroge n measurement (mass/volume)on 05-16-2020 Urea nitrogen [Mass/Vol] 39 mg/dL 9-23 [facility] Body fluid differential cell counton 03-27-2020 Differential panel - Body fluid 12 % [facility] Comment on above: The reference interv al and other method performance specifications have not been established for this body fluid. The test result must be integrated into the clinical context for interpretation. Color of Spun Body fluidon 0 03-27-2020 Color (Spun body fld) colorless [facility] Comment on above: The reference interv al and other method performance specifications have not been established for this body fluid. The test result must be integrated into the clinical context for interpretation. Determination of appearance of body fluidon 03-27-2020 Appearance (Body fld) clear [facility] Comment on above: The reference interv al and other method performance specifications have not been established for this body fluid. The test result must be integrated into the clinical context for interpretation. Evaluation of color of body fluidon 03-27-2020 Color (Body fld) colorless [facility] Comment on above: The reference interv al and other method performance specifications have not been established for this body fluid. The test result must be integrated into the clinical context for interpretation. Manual body fluid eosinophil s/100 leukocyteson 03-27-2020 Eosinophils/100 WBC Manual cnt (Body fld) 0 /100{WBC} 0-3 [facility] Manual body fluid erythrocyt es count (number/volume)on 03-27-2020 RBC Manual cnt (Body fld) [#/Vol] 18 /uL [facility] Comment on above: The reference interv al and other method performance specifications have not been established for this body fluid. The test result must be integrated into the clinical context for interpretation. Manual body fluid leukocytes count (number/volume)on 03-27-2020 WBC Manual cnt (Body fld) [#/Vol] 49 /uL [facility] Comment on above: The reference interv al and other method performance specifications have not been established for this body fluid. The test result must be integrated into the clinical context for interpretation. Manual body fluid lymphocyte s/100 leukocyteson 03-27-2020 Lymphocytes/100 WBC Manual cnt (Body fld) 2 % [facility] Comment on above: The reference interv al and other method performance specifications have not been established for this body fluid. The test result must be integrated into the clinical context for interpretation. Manual body fluid neutrophil s/100 leukocyteson 03-27-2020 Neutrophils/100 WBC (Body fld) 86 % [facility] Comment on above: The reference interv al and other method performance specifications have not been established for this body fluid. The test result must be integrated into the clinical context for interpretation. Transfusion reaction panel ( ABO, Rh)on 03-27-2020 Microscopic observation Gram stain Nom (Unsp spec) [facility] BASIC METABOLIC PANELon Calcium [Mass/Vol] 9.2 mg/dL Normal 8.6-10.3 [facility] Comment on above: Order Comment: The A ptima SARS-CoV-2 assay is a nucleic acid amplification test intended for the qualitative detection of RNA from SARS-CoV-2 isolated and purified from nasopharyngeal (FACT CHECKER),oropharyngeal (OP), nasal swab, sputum, and bronchoalveolar lavage (BAL) specimens from patients with signs and symptoms of infection who are suspected of COVID-19. Results are for the identification of SARS-CoV-2 RNA. The SARS-CoV-2 RNA is generally detectable during the acute phase of infection. The Aptima SARS-CoV-2 Assay on the [employer] and [employer] Fusion system is intended for use by laboratory personnel specifically instructed and trained in the operation of the [place] and [employer] Fusion system. The Aptima SARS-CoV-2 assay is only for use under the Food and Drug Administration Emergency Use Authorization. Testing is limited to laboratories certified under the Clinical Laboratory Improvement Amendments of 1988 (CLIA), 42 U.S.C. ???263a, to perform high complexity tests. Not Detected: Not detected does not preclude SARS-CoV-2 infection and should not be used as the sole basis for patient management decisions. Not detected results must be combined with clinical observations, patient history, and epidemiological information. Performed By: #### 3 1792 #### [facility] [address] [address], [facility] Chloride [Moles/Vol] 94 mmol/L Low 98-107 [facility] Comment on above: Order Comment: The A ptima SARS-CoV-2 assay is a nucleic acid amplification test intended for the qualitative detection of RNA from SARS-CoV-2 isolated and purified from nasopharyngeal (FACT CHECKER),oropharyngeal (OP), nasal swab, sputum, and bronchoalveolar lavage (BAL) specimens from patients with signs and symptoms of infection who are suspected of COVID-19. Results are for the identification of SARS-CoV-2 RNA. The SARS-CoV-2 RNA is generally detectable during the acute phase of infection. The Aptima SARS-CoV-2 Assay on the [employer] Fusion system is intended for use by laboratory personnel specifically instructed and trained in the operation of the [employer] and [employer] Fusion system. The Aptima SARS-CoV-2 assay is only for use under the Food and Drug Administration Emergency Use Authorization. Testing is limited to laboratories certified under the Clinical Laboratory Improvement Amendments of 1988 (CLIA), 42 U.S.C. ???263a, to perform high complexity tests. Not Detected: Not detected does not preclude SARS-CoV-2 infection and should not be used as the sole basis for patient management decisions. Not detected results must be combined with clinical observations, patient history, and epidemiological information. Performed By: #### 3 1792 #### [address] CO2 [Moles/Vol] 26 mmol/L Normal 21-31 [facility] Comment on above: Order Comment: The A ptima SARS-CoV-2 assay is a nucleic acid amplification test intended for the qualitative detection of RNA from SARS-CoV-2 isolated and purified from nasopharyngeal (FACT CHECKER),oropharyngeal (OP), nasal swab, sputum, and bronchoalveolar lavage (BAL) specimens from patients with signs and symptoms of infection who are suspected of COVID-19. Results are for the identification of SARS-CoV-2 RNA. The SARS-CoV-2 RNA is generally detectable during the acute phase of infection. The Aptima SARS-CoV-2 Assay on the [employer] and [employer] Fusion system is intended for use by laboratory personnel specifically instructed and trained in the operation of the [place] and [employer] Fusion system. The Aptima SARS-CoV-2 assay is only for use under the Food and Drug Administration Emergency Use Authorization. Testing is limited to laboratories certified under the Clinical Laboratory Improvement Amendments of 1988 (CLIA), 42 U.S.C. ???263a, to perform high complexity tests. Not Detected: Not detected does not preclude SARS-CoV-2 infection and should not be used as the sole basis for patient management decisions. Not detected results must be combined with clinical observations, patient history, and epidemiological information. Performed By: #### 3 1792 #### [facility] [address] [place] [address], [facility] Creatinine [Mass/Vol] 3.86 mg/dL High 0.60-1.20 [facility] Comment on above: Order Comment: The A ptima SARS-CoV-2 assay is a nucleic acid amplification test intended for the qualitative detection of RNA from SARS-CoV-2 isolated and purified from nasopharyngeal (FACT CHECKER),oropharyngeal (OP), nasal swab, sputum, and bronchoalveolar lavage (BAL) specimens from patients with signs and symptoms of infection who are suspected of COVID-19. Results are for the identification of SARS-CoV-2 RNA. The SARS-CoV-2 RNA is generally detectable during the acute phase of infection. The Aptima SARS-CoV-2 Assay on the [place] and [employer] Fusion system is intended for use by laboratory personnel specifically instructed and trained in the operation of the [place] and [employer] Fusion system. The Aptima SARS-CoV-2 assay is only for use under the Food and Drug Administration Emergency Use Authorization. Testing is limited to laboratories certified under the Clinical Laboratory Improvement Amendments of 1988 (CLIA), 42 U.S.C. ???263a, to perform high complexity tests. Not Detected: Not detected does not preclude SARS-CoV-2 infection and should not be used as the sole basis for patient management decisions. Not detected results must be combined with clinical observations, patient history, and epidemiological information. Performed By: #### 3 1792 #### [facility] [address] [place] [address], [facility] GFR/1.73 sq M predicted among blacks MDRD (S/P/Bld) [Vol rate/Area] 14 ml/min/1.73sq m Abnormal >60 [facility] Comment on above: Order Comment: The A ptima SARS-CoV-2 assay is a nucleic acid amplification test intended for the qualitative detection of RNA from SARS-CoV-2 isolated and purified from nasopharyngeal (FACT CHECKER),oropharyngeal (OP), nasal swab, sputum, and bronchoalveolar lavage (BAL) specimens from patients with signs and symptoms of infection who are suspected of COVID-19. Results are for the identification of SARS-CoV-2 RNA. The SARS-CoV-2 RNA is generally detectable during the acute phase of infection. The Aptima SARS-CoV-2 Assay on the [employer] and [employer] Fusion system is intended for use by laboratory personnel specifically instructed and trained in the operation of the [place] and [employer] Fusion system. The Aptima SARS-CoV-2 assay is only for use under the Food and Drug Administration Emergency Use Authorization. Testing is limited to laboratories certified under the Clinical Laboratory Improvement Amendments of 1988 (CLIA), 42 U.S.C. ???263a, to perform high complexity tests. Not Detected: Not detected does not preclude SARS-CoV-2 infection and should not be used as the sole basis for patient management decisions. Not detected results must be combined with clinical observations, patient history, and epidemiological information. Result Comment: Calc ulation may not be valid for patients over 70 years Performed By: #### 3 1792 #### [facility] [address] [place] [address], [facility] GFR/1.73 sq M predicted among non-blacks MDRD (S/P/Bld) [Vol rate/Area] 11 ml/min/1.73sq m Abnormal >60 [facility] Comment on above: Order Comment: The A ptima SARS-CoV-2 assay is a nucleic acid amplification test intended for the qualitative detection of RNA from SARS-CoV-2 isolated and purified from nasopharyngeal (FACT CHECKER),oropharyngeal (OP), nasal swab, sputum, and bronchoalveolar lavage (BAL) specimens from patients with signs and symptoms of infection who are suspected of COVID-19. Results are for the identification of SARS-CoV-2 RNA. The SARS-CoV-2 RNA is generally detectable during the acute phase of infection. The Aptima SARS-CoV-2 Assay on the [employer] and [employer] Fusion system is intended for use by laboratory personnel specifically instructed and trained in the operation of the [employer] and [employer] Fusion system. The Aptima SARS-CoV-2 assay is only for use under the Food and Drug Administration Emergency Use Authorization. Testing is limited to laboratories certified under the Clinical Laboratory Improvement Amendments of 1988 (CLIA), 42 U.S.C. ???263a, to perform high complexity tests. Not Detected: Not detected does not preclude SARS-CoV-2 infection and should not be used as the sole basis for patient management decisions. Not detected results must be combined with clinical observations, patient history, and epidemiological information. Result Comment: Calc ulation may not be valid for patients over 70 years Performed By: #### 3 1792 #### [facility] [address] [employer] [employer] Glucose [Mass/Vol] 160 mg/dL High 70-100 [facility] Comment on above: Order Comment: The A ptima SARS-CoV-2 assay is a nucleic acid amplification test intended for the qualitative detection of RNA from SARS-CoV-2 isolated and purified from nasopharyngeal (FACT CHECKER),oropharyngeal (OP), nasal swab, sputum, and bronchoalveolar lavage (BAL) specimens from patients with signs and symptoms of infection who are suspected of COVID-19. Results are for the identification of SARS-CoV-2 RNA. The SARS-CoV-2 RNA is generally detectable during the acute phase of infection. The Aptima SARS-CoV-2 Assay on the [place] [employer] Fusion system is intended for use by laboratory personnel specifically instructed and trained in the operation of the [employer] and [employer] Fusion system. The Aptima SARS-CoV-2 assay is only for use under the Food and Drug Administration Emergency Use Authorization. Testing is limited to laboratories certified under the Clinical Laboratory Improvement Amendments of 1988 (CLIA), 42 U.S.C. ???263a, to perform high complexity tests. Not Detected: Not detected does not preclude SARS-CoV-2 infection and should not be used as the sole basis for patient management decisions. Not detected results must be combined with clinical observations, patient history, and epidemiological information. Performed By: #### 3 1792 #### [facility] [address] [place] [address], [facility] Potassium [Moles/Vol] 3.4 mmol/L Low 3.5-5.1 [facility] Comment on above: Order Comment: The A ptima SARS-CoV-2 assay is a nucleic acid amplification test intended for the qualitative detection of RNA from SARS-CoV-2 isolated and purified from nasopharyngeal (FACT CHECKER),oropharyngeal (OP), nasal swab, sputum, and bronchoalveolar lavage (BAL) specimens from patients with signs and symptoms of infection who are suspected of COVID-19. Results are for the identification of SARS-CoV-2 RNA. The SARS-CoV-2 RNA is generally detectable during the acute phase of infection. The Aptima SARS-CoV-2 Assay on the [employer] Fusion system is intended for use by laboratory personnel specifically instructed and trained in the operation of the [employer] and [employer] Fusion system. The Aptima SARS-CoV-2 assay is only for use under the Food and Drug Administration Emergency Use Authorization. Testing is limited to laboratories certified under the Clinical Laboratory Improvement Amendments of 1988 (CLIA), 42 U.S.C. ???263a, to perform high complexity tests. Not Detected: Not detected does not preclude SARS-CoV-2 infection and should not be used as the sole basis for patient management decisions. Not detected results must be combined with clinical observations, patient history, and epidemiological information. Performed By: #### 3 1792 #### [place] [address], [facility] Sodium [Moles/Vol] 133 mmol/L Low 136-145 [facility] Comment on above: Order Comment: The A ptima SARS-CoV-2 assay is a nucleic acid amplification test intended for the qualitative detection of RNA from SARS-CoV-2 isolated and purified from nasopharyngeal (FACT CHECKER),oropharyngeal (OP), nasal swab, sputum, and bronchoalveolar lavage (BAL) specimens from patients with signs and symptoms of infection who are suspected of COVID-19. Results are for the identification of SARS-CoV-2 RNA. The SARS-CoV-2 RNA is generally detectable during the acute phase of infection. The Aptima SARS-CoV-2 Assay on the [employer] and [employer] Fusion system is intended for use by laboratory personnel specifically instructed and trained in the operation of the [place] and [employer] Fusion system. The Aptima SARS-CoV-2 assay is only for use under the Food and Drug Administration Emergency Use Authorization. Testing is limited to laboratories certified under the Clinical Laboratory Improvement Amendments of 1988 (CLIA), 42 U.S.C. ???263a, to perform high complexity tests. Not Detected: Not detected does not preclude SARS-CoV-2 infection and should not be used as the sole basis for patient management decisions. Not detected results must be combined with clinical observations, patient history, and epidemiological information. Performed By: #### 3 1792 #### [facility] [address] [place] [address], [facility] Urea nitrogen [Mass/Vol] 109 mg/dL High 7-25 [facility] Comment on above: Order Comment: The A ptima SARS-CoV-2 assay is a nucleic acid amplification test intended for the qualitative detection of RNA from SARS-CoV-2 isolated and purified from nasopharyngeal (FACT CHECKER),oropharyngeal (OP), nasal swab, sputum, and bronchoalveolar lavage (BAL) specimens from patients with signs and symptoms of infection who are suspected of COVID-19. Results are for the identification of SARS-CoV-2 RNA. The SARS-CoV-2 RNA is generally detectable during the acute phase of infection. The Aptima SARS-CoV-2 Assay on the [employer] Fusion system is intended for use by laboratory personnel specifically instructed and trained in the operation of the [employer] and [employer] Fusion system. The Aptima SARS-CoV-2 assay is only for use under the Food and Drug Administration Emergency Use Authorization. Testing is limited to laboratories certified under the Clinical Laboratory Improvement Amendments of 1988 (CLIA), 42 U.S.C. ???263a, to perform high complexity tests. Not Detected: Not detected does not preclude SARS-CoV-2 infection and should not be used as the sole basis for patient management decisions. Not detected results must be combined with clinical observations, patient history, and epidemiological information. Performed By: #### 3 1792 #### [facility] [address] [place] [address], [facility] LIVER BATTERYon 10-14-2019 Albumin [Mass/Vol] 4.0 g/dL Normal 3.5-5.7 [facility] Comment on above: Performed By: #### 3 1791 #### [facility] [address] [place] [address], [facility] ALKALINE PHOSPH 69 IU/L Normal 34-104 [facility] Comment on above: Performed By: #### 3 1791 #### [facility] [address] [place] [address], [facility] ALT [Catalytic activity/Vol] 26 U/L Normal 7-52 [facility] Comment on above: Performed By: #### 3 1791 #### [facility] [address] [place] [address], [facility] AST [Catalytic activity/Vol] 21 U/L Normal 13-39 [facility] Comment on above: Performed By: #### 3 1791 #### [facility] [address] [place] [address], [facility] Bilirubin [Mass/Vol] 0.4 mg/dL Normal 0.3-1.0 [facility] Comment on above: Performed By: #### 3 1791 #### [facility] [address] [place] [address], [facility] Bilirubin.direct [Mass/Vol] 0.0 mg/dL Normal 0.0-0.2 [facility] Comment on above: Performed By: #### 3 1791 #### [facility] [address] [place] [address], [facility] Protein [Mass/Vol] 6.6 g/dL Normal 6.0-8.3 [facility] Comment on above: Performed By: #### 3 1791 #### [facility] [address] [place] [address], [facility] POC GLUCOSE LABon 10-14-2019 Glucose [Mass/Vol] 179 mg/dL High 70-100 [facility] Comment on above: Performed By: #### 3 1791 #### [facility] [address] [place] [address], [place] Glucose [Mass/Vol] 263 mg/dL High 70-100 [facility] Comment on above: Performed By: #### 3 1792 #### [facility] [address] [place] [address], [place] Glucose [Mass/Vol] 301 mg/dL High 70-100 [facility] Comment on above: Performed By: #### 3 1792 #### [facility] [address] [place] [address], [place] Glucose [Mass/Vol] 163 mg/dL High 70-100 [facility] Comment on above: Performed By: #### 3 1792 #### [facility] [address] [place] [address], [place] BASIC METABOLIC PANELon 09-0 -2019 Calcium [Mass/Vol] 9.4 mg/dL Normal 8.6-10.3 [facility] Comment on above: Order Comment: [place] nephrosis Performed By: #### 0 0071, [id number] ####[facility] [place] [address], [place] Chloride [Moles/Vol] 91 mmol/L Low 98-107 [facility] Comment on above: Order Comment: [place] nephrosis Performed By: #### 0 0071, [id number] ####[facility] [address], [place] CO2 [Moles/Vol] 25 mmol/L Normal 21-31 [facility] Comment on above: Order Comment: [place] nephrosis Performed By: #### 0 0071, [id number] ####[facility] [place] [address], [place] Creatinine [Mass/Vol] 3.90 mg/dL High 0.60-1.20 [facility] Comment on above: Order Comment: [place] nephrosis Performed By: #### 0 0071, [id number] ####[facility] [place] [address], [place] GFR/1.73 sq M predicted among blacks MDRD (S/P/Bld) [Vol rate/Area] 13 ml/min/1.73sq m Abnormal >60 [facility] Comment on above: Order Comment: [place] nephrosis Result Comment: Calc ulation may not be valid for patients over 70 years Performed By: #### 0 0071, [id number] ####[facility] [address], [place] GFR/1.73 sq M predicted among non-blacks MDRD (S/P/Bld) [Vol rate/Area] 11 ml/min/1.73sq m Abnormal >60 [facility] Comment on above: Order Comment: [place] nephrosis Result Comment: Calc ulation may not be valid for patients over 70 years Performed By: #### 0 0071, 73049 ####[facility] [place] [address], [place] Glucose [Mass/Vol] 204 mg/dL High 70-100 [facility] Comment on above: Order Comment: [place] nephrosis Performed By: #### 0 0071, 75897 ####[facility] [place] [address], [place] Potassium [Moles/Vol] 3.4 mmol/L Low 3.5-5.1 [facility] Comment on above: Order Comment: [place] nephrosis Performed By: #### 0 0071, 36370 ####[facility] [place] [address], [place] Sodium [Moles/Vol] 132 mmol/L Low 136-145 [facility] Comment on above: Order Comment: [place] nephrosis Performed By: #### 0 0071, 69080 ####[facility] [place] [address], [place] Urea nitrogen [Mass/Vol] 101 mg/dL High 7-25 [facility] Comment on above: Order Comment: [place] nephrosis Performed By: #### 0 0071, 01506 ####[facility] CBC COMPLETE BLOOD COUNTon 0 10-13-2019 Erythrocyte distribution width (RBC) [Ratio] 14.5 % Normal 11.5-15.0 [facility] Comment on above: Order Comment: [place] nephrosis Performed By: #### 5 0608 ####[facility] Hematocrit (Bld) [Volume fraction] 33.2 % Low 36.0-45.0 [facility] Comment on above: Order Comment: [place] nephrosis Performed By: #### 5 0608 ####[facility] [address] Hemoglobin (Bld) [Mass/Vol] 10.8 g/dL Low 12.0-15.0 [facility] Comment on above: Order Comment: [place] nephrosis Performed By: #### 5 0608 ####[facility].[address] MCH (RBC) [Entitic mass] 29.6 pg Normal 27.0-33.0 [facility] Comment on above: Order Comment: [place] nephrosis Performed By: #### 5 0608 ####[facility].[address] MCHC (RBC) [Mass/Vol] 32.5 g/dL Normal 32.0-35.0 [facility] Comment on above: Order Comment: [place] nephrosis Performed By: #### 5 0608 ####[facility].[address] MCV (RBC) [Entitic vol] 91.0 fL Normal 82.0-98.0 T abimael [facility] Comment on above: Order Comment: [place] nephrosis Performed By: #### 5 0608 ####[facility] [address] Nucleated RBC/100 WBC (Bld) [Ratio] 0 % Normal 0-0 [facility] Comment on above: Order Comment: [place] nephrosis Performed By: #### 5 0608 ####[facility] [place] [address], [facility] PLAT CNT 199 10*3/uL Normal 150-400 [facility] Comment on above: Order Comment: [place] nephrosis Performed By: #### 5 0608 ####[facility] [place] [address], [facility] RBC (Bld) [#/Vol] 3.65 10*6/uL Low 3.80-5.00 [facility] Comment on above: Order Comment: [place] nephrosis Performed By: #### 5 0608 ####[facility] [place] [address], [facility] WBC (Bld) [#/Vol] 6.89 10*3/uL Normal 4.00-10.60 [facility] Comment on above: Order Comment: Succasunna nephrosis Performed By: #### 5 0608 ####[facility] [address] Cardiovascular Lab Reporton 10-13-2019 Cardiovascular Lab Report [facility] Patient Name: Cinthya Wilson [facility] Jesus[place] MR #: [id number] Department of Physician: Rand Tellez M.D. Division of Service Date: 10/13/2019 Cardiology Birthdate: 1945 Adult Cardiovascular Room #: [id number] [facility] [address] [address] Cardiovascular Laboratory Report FINAL IMPRESSIONS: 1. Low normal right-sided heart pressures. 2. Low pulmonary capillary wedge pressure. 3. Low normal cardiac output/cardiac index. RECOMMENDATIONS: 1. Aggressive cardiovascular risk factor modification. 2. Consider gentle IV hydration given filling pressures. 3. Further recommendations deferred to the inpatient services. PROCEDURES: Ultrasound-guided access to the right internal jugular vein, right heart catheterization. METHODS: After risks, benefits, and alternatives were explained, written informed consent was obtained. The patient was prepped and draped in the usual sterile fashion over the right neck. Using 1% lidocaine solution, local infiltration anesthesia was achieved. Using modified Seldinger technique, and under ultrasound guidance, access to the right internal jugular vein was obtained. A 6-Beninese 11 cm sheath was inserted without difficulty. A Howell catheter was used for right heart catheterization measuring pressures in the right atrium, right ventricle, pulmonary artery, and pulmonary capillary wedge positions. Oxygen saturations were obtained and cardiac output/cardiac index was calculated using the Khalida principle. The Howell catheter was removed. The jugular sheath was removed with application of manual pressure to achieve optimal hemostasis. Overall, the patient tolerated the procedure well. There were no overt complications. She was to be transferred to the holding area in stable condition. FINDINGS: Hemodynamics: RA 2. RV 24/1, 5. PA 24/3 (13). PCWP 5. TPG 8. AO 101/50. Cardiac output 4.54/cardiac index 2.45. INDICATIONS: Congestive heart failure, shortness of breath. Electronically Signed by: Cheli Lutz M.D. 10/18/2019 03:23 P Cheli Lutz M.D. Date Dict: 10/13/2019/02:23 P/Cheli Lutz M.D. Date Trans: 10/13/2019 03:08 P/adán [id number] cc: Lily Aldrich M.D. [address] [place] [id number] Marcus Belcher M.D. [facility] Emergency Room [address] [place] [address] Normal [facility] MAGNESIUM BLOODon 10-13-2019 Magnesium [Mass/Vol] 2.2 mg/dL Normal 1.9-2.7 [facility] Comment on above: Order Comment: Succasunna nephrosis Performed By: #### 0 0071, 32426 ####[facility] [address], [place] POC GLUCOSE LABon 10-13-2019 Glucose [Mass/Vol] 230 mg/dL High 70-100 [facility] Comment on above: Performed By: #### 8 5499 ####[facility] [address], [place] Glucose [Mass/Vol] 192 mg/dL High 70-100 [facility] Comment on above: Performed By: #### 8 5499 ####[facility] [address], [place] Glucose [Mass/Vol] 203 mg/dL High 70-100 [facility] Comment on above: Performed By: #### 8 5499 ####[facility] [address], [place] Glucose [Mass/Vol] 218 mg/dL High 70-100 [facility] Comment on above: Performed By: #### 8 5499 ####[facility] [address], [place] BASIC METABOLIC PANELon Calcium [Mass/Vol] 9.6 mg/dL Normal 8.6-10.3 [facility] Comment on above: Order Comment: No: D o not add to previous draw Performed By: #### 0 0071, 98185, 36283 #### [facility] [address] [place] [address], [place] Chloride [Moles/Vol] 94 mmol/L Low 98-107 [facility] Comment on above: Order Comment: No: D o not add to previous draw Performed By: #### 0 0071, 76693, 87751 #### [facility] [address] [address], [place] CO2 [Moles/Vol] 27 mmol/L Normal 21-31 [facility] Comment on above: Order Comment: No: D o not add to previous draw Performed By: #### 0 0071, 32128, 50539 #### [facility] [address] [address], [place] Creatinine [Mass/Vol] 3.32 mg/dL High 0.60-1.20 [facility] Comment on above: Order Comment: No: D o not add to previous draw Performed By: #### 0 0071, 76996, 87973 #### [facility] [address] [address], [place] GFR/1.73 sq M predicted among blacks MDRD (S/P/Bld) [Vol rate/Area] 16 ml/min/1.73sq m Abnormal >60 [facility] Comment on above: Order Comment: No: D o not add to previous draw Result Comment: Calc ulation may not be valid for patients over 70 years Performed By: #### 0 0071, 22395, 84260 #### [facility] [address] [address], [place] GFR/1.73 sq M predicted among non-blacks MDRD (S/P/Bld) [Vol rate/Area] 13 ml/min/1.73sq m Abnormal >60 [facility] Comment on above: Order Comment: No: D o not add to previous draw Result Comment: Calc ulation may not be valid for patients over 70 years Performed By: #### 0 0071, 32848, 36585 #### [facility] [address] [address], [place] Glucose [Mass/Vol] 141 mg/dL High 70-100 [facility] Comment on above: Order Comment: No: D o not add to previous draw Performed By: #### 0 0071, 83387, 99329 #### [facility] [address] [address], [place] Potassium [Moles/Vol] 3.7 mmol/L Normal 3.5-5.1 [facility] Comment on above: Order Comment: No: D o not add to previous draw Performed By: #### 0 0071, 54305, 87651 #### [facility] [address] Sodium [Moles/Vol] 133 mmol/L Low 136-145 [facility] Comment on above: Order Comment: No: D o not add to previous draw Performed By: #### 0 0071, 73055, 26225 #### [facility] [address] [facility] [address] Urea nitrogen [Mass/Vol] 85 mg/dL High 7-25 [facility] Comment on above: Order Comment: No: D o not add to previous draw Performed By: #### 0 0071, 04156, 57686 #### [facility] [address] [facility] [address] BNP (B-TYPE NATRIURETIC PEPT CAILIN)on 10-12-2019 Natriuretic peptide B (Bld) [Mass/Vol] 41 pg/mL Normal 0-100 [facility] Comment on above: Order Comment: Succasunna nephrosis Result Comment: Give n the appropriate clinical setting a BNP result of >100 pg/mL indicates congestive heart failure. Performed By: #### 8 5123 ####[facility].[address] CBC COMPLETE BLOOD COUNTon 0 10-12-2019 Erythrocyte distribution width (RBC) [Ratio] 14.6 % Normal 11.5-15.0 [facility] Comment on above: Order Comment: No: D o not add to previous draw Performed By: #### 0 0071, 99913, 17243 #### [facility] [address] [address], [facility] Hematocrit (Bld) [Volume fraction] 32.5 % Low 36.0-45.0 [facility] Comment on above: Order Comment: No: D o not add to previous draw Performed By: #### 0 0071, 49888, 71489 #### [facility] [address] [address], [facility] Hemoglobin (Bld) [Mass/Vol] 10.7 g/dL Low 12.0-15.0 [facility] Comment on above: Order Comment: No: D o not add to previous draw Performed By: #### 0 0071, , 45714 #### [facility] [address] [place] [address], [facility] MCH (RBC) [Entitic mass] 29.7 pg Normal 27.0-33.0 [facility] Comment on above: Order Comment: No: D o not add to previous draw Performed By: #### 0 0071, , 77026 #### [facility] [address] MCHC (RBC) [Mass/Vol] 32.9 g/dL Normal 32.0-35.0 [facility] Comment on above: Order Comment: No: D o not add to previous draw Performed By: #### 0 0071, , 83513 #### [facility] [address] [facility] [place] [address], [facility] MCV (RBC) [Entitic vol] 90.3 fL Normal 82.0-98.0 [facility] Comment on above: Order Comment: No: D o not add to previous draw Performed By: #### 0 0071, , 73190 #### [facility] [address] [facility] [place] [address], [facility] Nucleated RBC/100 WBC (Bld) [Ratio] 0 % Normal 0-0 [facility] Comment on above: Order Comment: No: D o not add to previous draw Performed By: #### 0 0071, 78465, 43092 #### [facility] [address] [address], [facility] PLAT CNT 202 10*3/uL Normal 150-400 [facility] Comment on above: Order Comment: No: D o not add to previous draw Performed By: #### 0 0071, 22083, 47016 #### [facility] [address] [place] [address], [facility] RBC (Bld) [#/Vol] 3.60 10*6/uL Low 3.80-5.00 [facility] Comment on above: Order Comment: No: D o not add to previous draw Performed By: #### 0 0071, 15461, 04886 #### [facility] [address] [address], [facility] WBC (Bld) [#/Vol] 8.02 10*3/uL Normal 4.00-10.60 [facility] Comment on above: Order Comment: No: D o not add to previous draw Performed By: #### 0 0071, 16566, 95562 #### [facility] [address] D DIMER TESTon 10-12-2019 D-DIMER TEST 0.27 mcg/mL FEU Normal 0.01-0.49 [facility] Comment on above: Order Comment: No: D o not add to previous draw Result Comment: D-Di kia values of less than 0.50 ug/ml (FEU) are considered to be a negative predictor of thrombosis. However, the D-Dimer result should be used in conjunction with pretest probability and should not be used alone to diagnose a thrombotic event. Performed By: #### 0 0071, 53326, 70515 #### [facility] [address] [address], [facility] MAGNESIUM BLOODon 10-12-2019 Magnesium [Mass/Vol] 2.1 mg/dL Normal 1.9-2.7 [facility] Comment on above: Order Comment: No: D o not add to previous draw Performed By: #### 0 0071, 63126, 79771 #### [facility] [address] [place] [address], [place] POC GLUCOSE LABon 10-12-2019 Glucose [Mass/Vol] 268 mg/dL High 70-100 [facility] Comment on above: Performed By: #### 8 5499 ####[facility] [place] [address], [place] Glucose [Mass/Vol] 109 mg/dL High 70-100 [facility] Comment on above: Performed By: #### 8 5499 ####[facility] [place] [address], [place] Glucose [Mass/Vol] 210 mg/dL High 70-100 [facility] Comment on above: Performed By: #### 0 0071, 49601, 91740 #### [facility] [address] [place] [address], [place] Glucose [Mass/Vol] 174 mg/dL High 70-100 [facility] Comment on above: Performed By: #### 0 0071, 74318, 10955 #### [facility] [address] [place] [address], [place] BASIC METABOLIC PANELon 09-12 Calcium [Mass/Vol] 9.6 mg/dL Normal 8.6-10.3 [facility] Comment on above: Order Comment: No: D o not add to previous draw Performed By: #### 0 0071, 75707, 03359 #### [facility] [address] [address], [place] Chloride [Moles/Vol] 98 mmol/L Normal 98-107 [facility] Comment on above: Order Comment: No: D o not add to previous draw Performed By: #### 0 0071, 74931, 25543 #### [facility] [address] [place] [address], [place] CO2 [Moles/Vol] 26 mmol/L Normal 21-31 [facility] Comment on above: Order Comment: No: D o not add to previous draw Performed By: #### 0 0071, 94909, 70697 #### [facility] [address] [place] [address], [place] Creatinine [Mass/Vol] 3.14 mg/dL High 0.60-1.20 [facility] Comment on above: Order Comment: No: D o not add to previous draw Performed By: #### 0 0071, 99982, 29203 #### [facility] [address] [address], [facility] GFR/1.73 sq M predicted among blacks MDRD (S/P/Bld) [Vol rate/Area] 18 ml/min/1.73sq m Abnormal >60 [facility] Comment on above: Order Comment: No: D o not add to previous draw Result Comment: Calc ulation may not be valid for patients over 70 years Performed By: #### 0 0071, , 96388 #### [facility] [address] [place] [address], [facility] GFR/1.73 sq M predicted among non-blacks MDRD (S/P/Bld) [Vol rate/Area] 15 ml/min/1.73sq m Abnormal >60 [facility] Comment on above: Order Comment: No: D o not add to previous draw Result Comment: Calc ulation may not be valid for patients over 70 years Performed By: #### 0 0071, 38590, 77588 #### [facility] [address] [place] [address], [facility] Glucose [Mass/Vol] 119 mg/dL High 70-100 [facility] Comment on above: Order Comment: No: D o not add to previous draw Performed By: #### 0 0071, 25417, 84243 #### [facility] [address] [place] [address], [place] Potassium [Moles/Vol] 3.8 mmol/L Normal 3.5-5.1 [facility] Comment on above: Order Comment: No: D o not add to previous draw Performed By: #### 0 0071, 83714, 20485 #### [facility] [address] [place] [address], [facility] Sodium [Moles/Vol] 135 mmol/L Low 136-145 [facility] Comment on above: Order Comment: No: D o not add to previous draw Performed By: #### 0 0071, 57820, 98353 #### [facility] [address] [place] [address], [facility] Urea nitrogen [Mass/Vol] 81 mg/dL High 7-25 [facility] Comment on above: Order Comment: No: D o not add to previous draw Performed By: #### 0 0071, , 07423 #### [facility] [address] CBC COMPLETE BLOOD COUNTon 10-11-2019 Erythrocyte distribution width (RBC) [Ratio] 14.4 % Normal 11.5-15.0 [facility] Comment on above: Order Comment: No: D o not add to previous draw Performed By: #### 0 0071, , 59653 #### [facility] [address] [place] [address], [facility] Hematocrit (Bld) [Volume fraction] 31.3 % Low 36.0-45.0 [facility] Comment on above: Order Comment: No: D o not add to previous draw Performed By: #### 0 0071, , 62230 #### [facility] [address] [place] [address], [facility] Hemoglobin (Bld) [Mass/Vol] 10.0 g/dL Low 12.0-15.0 [facility] Comment on above: Order Comment: No: D o not add to previous draw Performed By: #### 0 0071, 39972, 25724 #### [facility] [address] [address], [facility] MCH (RBC) [Entitic mass] 29.4 pg Normal 27.0-33.0 [facility] Comment on above: Order Comment: No: D o not add to previous draw Performed By: #### 0 0071, 59593, 61470 #### [facility] [address] [place] [address], [facility] MCHC (RBC) [Mass/Vol] 31.9 g/dL Low 32.0-35.0 [facility] Comment on above: Order Comment: No: D o not add to previous draw Performed By: #### 0 0071, 39818, 75677 #### [facility] [address] [address], [facility] MCV (RBC) [Entitic vol] 92.1 fL Normal 82.0-98.0 [facility] Comment on above: Order Comment: No: D o not add to previous draw Performed By: #### 0 0071, , 12762 #### [facility] [address] [facility] [place] [address], [facility] Nucleated RBC/100 WBC (Bld) [Ratio] 0 % Normal 0-0 [facility] Comment on above: Order Comment: No: D o not add to previous draw Performed By: #### 0 0071, 91990, 53008 #### [facility] [address] [facility] [place] [address], [facility] PLAT CNT 186 10*3/uL Normal 150-400 [facility] Comment on above: Order Comment: No: D o not add to previous draw Performed By: #### 0 0071, 06529, 01216 #### [facility] [address] [place] [address], [facility] RBC (Bld) [#/Vol] 3.40 10*6/uL Low 3.80-5.00 [facility] Comment on above: Order Comment: No: D o not add to previous draw Performed By: #### 0 0071, 27755, 38621 #### [facility] [address] [facility] [place] [address], [facility] WBC (Bld) [#/Vol] 7.08 10*3/uL Normal 4.00-10.60 [facility] Comment on above: Order Comment: No: D o not add to previous draw Performed By: #### 0 0071, 80624, 46455 #### [facility] [address] [address], [facility] LIVER BATTERYon 10-11-2019 Albumin [Mass/Vol] 4.0 g/dL Normal 3.5-5.7 [facility] Comment on above: Performed By: #### 0 0071, 78251, 56539 #### [facility] [address] [place] [address], [facility] ALKALINE PHOSPH 76 IU/L Normal 34-104 [facility] Comment on above: Performed By: #### 0 0071, 37012, 35671 #### [facility] [address] [facility] [address] ALT [Catalytic activity/Vol] 17 U/L Normal 7-52 [facility] Comment on above: Performed By: #### 0 0071, 59086, 94294 #### [facility] [address] [facility] [place] [address], [facility] AST [Catalytic activity/Vol] 15 U/L Normal 13-39 [facility] Comment on above: Performed By: #### 0 0071, 60411, 23084 #### [facility] [address] [place] [address], [facility] Bilirubin [Mass/Vol] 0.4 mg/dL Normal 0.3-1.0 [facility] Comment on above: Performed By: #### 0 0071, 06133, 33391 #### [facility] [address] [place] [address], [facility] Bilirubin.direct [Mass/Vol] 0.1 mg/dL Normal 0.0-0.2 [facility] Comment on above: Performed By: #### 0 0071, 74662, 68819 #### [facility] [address] [place] [address], [place] Protein [Mass/Vol] 6.4 g/dL Normal 6.0-8.3 [facility] Comment on above: Performed By: #### 0 0071, 83794, 82918 #### [facility] [address] [place] [address], [place] MAGNESIUM BLOODon 10-11-2019 Magnesium [Mass/Vol] 2.2 mg/dL Normal 1.9-2.7 [facility] Comment on above: Order Comment: No: D o not add to previous draw Performed By: #### 0 0071, 63853, 01969 #### [facility] [address] [place] [address], [place] POC GLUCOSE LABon 10-11-2019 Glucose [Mass/Vol] 127 mg/dL High 70-100 [facility] Comment on above: Performed By: #### 0 0071, 71673, 17492 #### [facility] [address] [place] [address], [place] Glucose [Mass/Vol] 203 mg/dL High 70-100 [facility] Comment on above: Performed By: #### 0 0071, 64422, 75127 #### [facility] [address] [place] [address], [place] Glucose [Mass/Vol] 242 mg/dL High 70-100 [facility] Comment on above: Performed By: #### 0 0071, 61922, 46947 #### [facility] [address] [place] [address], [place] Glucose [Mass/Vol] 121 mg/dL High 70-100 [facility] Comment on above: Performed By: #### 0 0071, 07949, 78021 #### [facility] [address] [place] [address], [place] US LIVERon 10-11-2019 [facility] Department of Radiology [address] [place] [address] == Patient Name: CINTHYA WILSON : 1945 Sex: F Age: Race: White Pt. Location: [id number] Patient Status: I Ordered Date: 10/10/2019 11:35:00 AM Completed Date: 10/11/2019 09:45 AM Requesting Provider: LUIS MANUEL LEON Attending Provider: COLBY NEAL Report Copy To: Signs & Symptoms: Liver Disease History: See Comments Comments: Liver Disease Exam: US LIVER == US LIVER 10/11/2019 9:45 AM CLINICAL INDICATIONS: Liver Disease TECHNOLOGIST COMMENTS: abnormal labs. liver disease QUESTION FOR THE RADIOLOGIST: Liver Disease COMPARISON: Renal ultrasound 10/08/2019 FINDINGS: The liver is normal in echogenicity. No intrahepatic or extrahepatic biliary ductal dilatation. There is hepatopedal flow portal vein at a rate of 32 cm/s. The gallbladder is without echogenic stones, pericholecystic fluid, or wall thickening. The common bile duct measures 5 mm, within normal limits. Visualized portions of the pancreas are unremarkable with portions of secured by overlying bowel gas. Visualized right kidney is unremarkable. IMPRESSION: Unremarkable exam. Approved by:Jakob Pablo10/11/2019 9:56 AM. I, Donal Sweeney,have reviewed the images and reports Electronically signed: Donal Sweeney. Transcribed by: Sunil, User Resident: JAKOB CURIEL Electronically Signed by: DONAL SWEENEY @ 10/11/2019 11:04 AM I personally read this/these film(s) with this resident Normal [facility] Comment on above: Order Comment: No: D o not add to previous draw BASIC METABOLIC PANELon 09-12 Calcium [Mass/Vol] 9.0 mg/dL Normal 8.6-10.3 [facility] Comment on above: Order Comment: No: D o not add to previous draw Performed By: #### 0 0071, 70239, 37608 #### [facility] [address] [place] [address], [place] Chloride [Moles/Vol] 100 mmol/L Normal 98-107 [facility] Comment on above: Order Comment: No: D o not add to previous draw Performed By: #### 0 0071, 62212, 60085 #### [facility] [address] [place] [address], [place] CO2 [Moles/Vol] 24 mmol/L Normal 21-31 [facility] Comment on above: Order Comment: No: D o not add to previous draw Performed By: #### 0 0071, 73089, 35812 #### [facility] [address] [place] [address], [place] Creatinine [Mass/Vol] 3.14 mg/dL High 0.60-1.20 [facility] Comment on above: Order Comment: No: D o not add to previous draw Performed By: #### 0 0071, 44171, 44789 #### [facility] [address] [place] [address], [place] GFR/1.73 sq M predicted among blacks MDRD (S/P/Bld) [Vol rate/Area] 18 ml/min/1.73sq m Abnormal >60 [facility] Comment on above: Order Comment: No: D o not add to previous draw Result Comment: Calc ulation may not be valid for patients over 70 years Performed By: #### 0 0071, 03413, 84344 #### [facility] [address] [place] [address], [place] GFR/1.73 sq M predicted among non-blacks MDRD (S/P/Bld) [Vol rate/Area] 15 ml/min/1.73sq m Abnormal >60 [facility] Comment on above: Order Comment: No: D o not add to previous draw Result Comment: Calc ulation may not be valid for patients over 70 years Performed By: #### 0 0071, 91717, 88457 #### [facility] [address] [place] [address], [place] Glucose [Mass/Vol] 136 mg/dL High 70-100 [facility] Comment on above: Order Comment: No: D o not add to previous draw Performed By: #### 0 0071, 49210, 23904 #### [facility] [address] [place] [address], [place] Potassium [Moles/Vol] 3.7 mmol/L Normal 3.5-5.1 [facility] Comment on above: Order Comment: No: D o not add to previous draw Performed By: #### 0 0071, 38267, 75929 #### [facility] [address] [place] [address], [place] Sodium [Moles/Vol] 135 mmol/L Low 136-145 [facility] Comment on above: Order Comment: No: D o not add to previous draw Performed By: #### 0 0071, 21147, 35253 #### [facility] [address] [place] [address], [place] Urea nitrogen [Mass/Vol] 74 mg/dL High 7-25 [facility] Comment on above: Order Comment: No: D o not add to previous draw Performed By: #### 0 0071, 68347, 96271 #### [facility] [address] [place] [address], [place] CBC COMPLETE BLOOD COUNTon 10-10-2019 Erythrocyte distribution width (RBC) [Ratio] 14.5 % Normal 11.5-15.0 [facility] Comment on above: Order Comment: No: D o not add to previous draw Performed By: #### 0 0071, 18227, 43322 #### [facility] [address] [place] [address], [facility] Hematocrit (Bld) [Volume fraction] 29.8 % Low 36.0-45.0 [facility] Comment on above: Order Comment: No: D o not add to previous draw Performed By: #### 0 0071, 96821, 06776 #### [facility] [address] [place] [place] [address], [facility] Hemoglobin (Bld) [Mass/Vol] 9.7 g/dL Low 12.0-15.0 [facility] Comment on above: Order Comment: No: D o not add to previous draw Performed By: #### 0 0071, , 21376 #### [facility] [address] [place] [address], [place] MCH (RBC) [Entitic mass] 29.5 pg Normal 27.0-33.0 [facility] Comment on above: Order Comment: No: D o not add to previous draw Performed By: #### 0 0071, , 30095 #### [facility] [facility] [address] [address], [facility] MCHC (RBC) [Mass/Vol] 32.6 g/dL Normal 32.0-35.0 [facility] Comment on above: Order Comment: No: D o not add to previous draw Performed By: #### 0 0071, 81453, 40830 #### [facility] [address] [address], [place] MCV (RBC) [Entitic vol] 90.6 fL Normal 82.0-98.0 T abim[facility] Comment on above: Order Comment: No: D o not add to previous draw Performed By: #### 0 0071, 65951, 82030 #### [facility] [address] [place] [address], [facility] Nucleated RBC/100 WBC (Bld) [Ratio] 0 % Normal 0-0 [facility] Comment on above: Order Comment: No: D o not add to previous draw Performed By: #### 0 0071, 40476, 52895 #### [facility] [address] [place] [address], [facility] PLAT CNT 177 10*3/uL Normal 150-400 [facility] Comment on above: Order Comment: No: D o not add to previous draw Performed By: #### 0 0071, 12935, 51296 #### [facility] [address] [facility] [place] [address], [facility] RBC (Bld) [#/Vol] 3.29 10*6/uL Low 3.80-5.00 [facility] Comment on above: Order Comment: No: D o not add to previous draw Performed By: #### 0 0071, 38098, 26965 #### [facility] [address] [facility] [place] [address], [facility] WBC (Bld) [#/Vol] 6.93 10*3/uL Normal 4.00-10.60 [facility] Comment on above: Order Comment: No: D o not add to previous draw Performed By: #### 0 0071, 94605, 80990 #### [facility] [address] [facility] [place] [address], [facility] MAGNESIUM BLOODon 10-10-2019 Magnesium [Mass/Vol] 2.2 mg/dL Normal 1.9-2.7 [facility] Comment on above: Order Comment: No: D o not add to previous draw Performed By: #### 0 0071, 75037, 57791 #### [facility] [address] [address], [facility] POC GLUCOSE LABon 10-10-2019 Glucose [Mass/Vol] 134 mg/dL High 70-100 [facility] Comment on above: Performed By: #### 0 0071, 29544, 82512 #### [facility] [address] [place] [address], [place] Glucose [Mass/Vol] 177 mg/dL High 70-100 [facility] Comment on above: Performed By: #### 0 0071, 53425, 76456 #### [facility] [address] [place] [address], [place] Glucose [Mass/Vol] 254 mg/dL High 70-100 [facility] Comment on above: Performed By: #### 0 0071, 74222, 48337 #### [facility] [address] [place] [address], [place] BASIC METABOLIC PANELon 08- Calcium [Mass/Vol] 9.5 mg/dL Normal 8.6-10.3 [facility] Comment on above: Order Comment: No: D o not add to previous draw Performed By: #### 0 0071, 56880, 20804 #### [facility] [address] [place] [address], [place] Chloride [Moles/Vol] 100 mmol/L Normal 98-107 [facility] Comment on above: Order Comment: No: D o not add to previous draw Performed By: #### 0 0071, 12595, 75916 #### [facility] [address] [place] [address], [place] CO2 [Moles/Vol] 25 mmol/L Normal 21-31 [facility] Comment on above: Order Comment: No: D o not add to previous draw Performed By: #### 0 0071, 96711, 87563 #### [facility] [address] [place] [address], [place] Creatinine [Mass/Vol] 2.94 mg/dL High 0.60-1.20 [facility] Comment on above: Order Comment: No: D o not add to previous draw Performed By: #### 0 0071, 16588, 63943 #### [facility] [address] [place] [address], [place] GFR/1.73 sq M predicted among blacks MDRD (S/P/Bld) [Vol rate/Area] 19 ml/min/1.73sq m Abnormal >60 [facility] Comment on above: Order Comment: No: D o not add to previous draw Result Comment: Calc ulation may not be valid for patients over 70 years Performed By: #### 0 0071, 89498, 85747 #### [facility] [address] [place] [address], [place] GFR/1.73 sq M predicted among non-blacks MDRD (S/P/Bld) [Vol rate/Area] 16 ml/min/1.73sq m Abnormal >60 [facility] Comment on above: Order Comment: No: D o not add to previous draw Result Comment: Calc ulation may not be valid for patients over 70 years Performed By: #### 0 0071, 61863, 41147 #### [facility] [address] [place] [address], [place] Glucose [Mass/Vol] 147 mg/dL High 70-100 [facility] Comment on above: Order Comment: No: D o not add to previous draw Performed By: #### 0 0071, 57763, 19870 #### [facility] [address] [place] [address], [place] Potassium [Moles/Vol] 3.8 mmol/L Normal 3.5-5.1 [facility] Comment on above: Order Comment: No: D o not add to previous draw Performed By: #### 0 0071, 22390, 01070 #### [facility] [address] [place] [address], [place] Sodium [Moles/Vol] 136 mmol/L Normal 136-145 [facility] Comment on above: Order Comment: No: D o not add to previous draw Performed By: #### 0 0071, 81498, 47908 #### [facility] [address] [facility] [place] [address], [facility] Urea nitrogen [Mass/Vol] 66 mg/dL High 7-25 [facility] Comment on above: Order Comment: No: D o not add to previous draw Performed By: #### 0 0071, 69149, 06652 #### [facility] [address] [facility] [place] [address], [facility] CBC W/DIFFon 10-09-2019 ABS BASOPHILS 0.0 10*3/uL Normal 0.0-0.2 [facility] Comment on above: Order Comment: No: D o not add to previous draw Performed By: #### 0 0071, 85069, 43261 #### [facility] [address] ABS IMM GRANS 0.0 10*3/uL Normal 0.0-0.2 [facility] Comment on above: Order Comment: No: D o not add to previous draw Performed By: #### 0 0071, , 67970 #### [facility] [address] [facility] [place] [address], [facility] ABS NEUTROPHILS 4.3 10*3/uL Normal 1.6-7.6 [facility] Comment on above: Order Comment: No: D o not add to previous draw Performed By: #### 0 0071, , 82163 #### [facility] [address] [facility] [place] [address], [facility] Basophils/100 WBC (Bld) 0.6 % Normal 0.0-1.0 T [facility] Comment on above: Order Comment: No: D o not add to previous draw Performed By: #### 0 0071, 48727, 41464 #### [facility] [address] [facility] [place] [address], [facility] Eosinophils (Bld) [#/Vol] 0.6 10*3/uL High 0.0-0.5 [facility] Comment on above: Order Comment: No: D o not add to previous draw Performed By: #### 0 0071, 14863, 56360 #### [facility] [address] [place] [address], [facility] Eosinophils/100 WBC (Bld) 7.7 % High 0.0-6.0 [facility] Comment on above: Order Comment: No: D o not add to previous draw Performed By: #### 0 0071, 55710, 55622 #### [facility] [address] [facility] [place] [place] [id number] [place] [address] Erythrocyte distribution width (RBC) [Ratio] 14.4 % Normal 11.5-15.0 [facility] Comment on above: Order Comment: No: D o not add to previous draw Performed By: #### 0 0071, 72449, 38537 #### [facility] [address] [facility] Hematocrit (Bld) [Volume fraction] 32.7 % Low 36.0-45.0 [facility] Comment on above: Order Comment: No: D o not add to previous draw Performed By: #### 0 0071, 21692, 78073 #### [facility] [address] [facility] [place] [address], [facility] Hemoglobin (Bld) [Mass/Vol] 10.5 g/dL Low 12.0-15.0 [facility] Comment on above: Order Comment: No: D o not add to previous draw Performed By: #### 0 0071, 83667, 95209 #### [facility] [address] [facility] [place] [address], [facility] IMMATURE GRANS 0.4 % Normal 0.0-1.0 [facility] Comment on above: Order Comment: No: D o not add to previous draw Performed By: #### 0 0071, 27640, 77073 #### [facility] [address] [place] [address], [facility] Lymphocytes (Bld) [#/Vol] 1.3 10*3/uL Normal 1.2-4.0 [facility] Comment on above: Order Comment: No: D o not add to previous draw Performed By: #### 0 0071, 92957, 35404 #### [facility] [address] [place] [address], [facility] Lymphocytes/100 WBC (Bld) 17.7 % Low 20.0-45.0 [facility] Comment on above: Order Comment: No: D o not add to previous draw Performed By: #### 0 0071, 64635, 54995 #### [facility] [address] [place] [address], [facility] MCH (RBC) [Entitic mass] 29.3 pg Normal 27.0-33.0 [facility] Comment on above: Order Comment: No: D o not add to previous draw Performed By: #### 0 0071, 97360, 95622 #### [facility] [address] [place] [address], [facility] MCHC (RBC) [Mass/Vol] 32.1 g/dL Normal 32.0-35.0 [facility] Comment on above: Order Comment: No: D o not add to previous draw Performed By: #### 0 0071, 37519, 93898 #### [facility] [address] [place] [address], [facility] MCV (RBC) [Entitic vol] 91.3 fL Normal 82.0-98.0 [facility] Comment on above: Order Comment: No: D o not add to previous draw Performed By: #### 0 0071, 07769, 17719 #### [facility] [address] [place] [address], [facility] Monocytes (Bld) [#/Vol] 1.1 10*3/uL High 0.1-1.0 [facility] Comment on above: Order Comment: No: D o not add to previous draw Performed By: #### 0 0071, 61136, 59396 #### [facility] [address] [place] [address], [facility] MONOS 15.0 % High 5.0-12.0 [facility] Comment on above: Order Comment: No: D o not add to previous draw Performed By: #### 0 0071, 06778, 60684 #### [facility] [address] [place] [address], [facility] Neutrophils/100 WBC (Bld) 58.6 % Normal 40.0-72.0 [facility] Comment on above: Order Comment: No: D o not add to previous draw Performed By: #### 0 0071, 02338, 26339 #### [facility] [address] [place] [id number], [facility] Nucleated RBC/100 WBC (Bld) [Ratio] 0 % Normal 0-0 [facility] Comment on above: Order Comment: No: D o not add to previous draw Performed By: #### 0 0071, 11635, 93455 #### [facility] [address] [facility] [place] [address], [facility] PLAT CNT 191 10*3/uL Normal 150-400 [facility] Comment on above: Order Comment: No: D o not add to previous draw Performed By: #### 0 0071, 39456, 94163 #### [facility] [address] [facility] [place] [address], [facility] RBC (Bld) [#/Vol] 3.58 10*6/uL Low 3.80-5.00 [facility] Comment on above: Order Comment: No: D o not add to previous draw Performed By: #### 0 0071, 54574, 27675 #### [facility] [address] [place] [address], [place] WBC (Bld) [#/Vol] 7.27 10*3/uL Normal 4.00-10.60 [facility] Comment on above: Order Comment: No: D o not add to previous draw Performed By: #### 0 0071, 90685, 21133 #### [facility] [address] [place] [address], [place] MAGNESIUM BLOODon 10-09-2019 Magnesium [Mass/Vol] 2.4 mg/dL Normal 1.9-2.7 [facility] Comment on above: Order Comment: No: D o not add to previous draw Performed By: #### 0 0071, 01555, 76733 #### [facility] [address] [place] [address], [place] PHOSPHORUS BLOODon 0 Phosphate [Mass/Vol] 4.2 mg/dL Normal 2.5-5.0 [facility] Comment on above: Order Comment: No: D o not add to previous draw Performed By: #### 0 0071, 28801, 25634 #### [facility] [address] [place] [address], [place] POC GLUCOSE LABon 10-09-2019 Glucose [Mass/Vol] 164 mg/dL High 70-100 [facility] Comment on above: Performed By: #### 0 0071, 88674, 26945 #### [facility] [address] [place] [address], [place] Glucose [Mass/Vol] 164 mg/dL High 70-100 [facility] Comment on above: Performed By: #### 0 0071, 27986, 42270 #### [facility] [address] [place] [address], [place] Glucose [Mass/Vol] 314 mg/dL High 70-100 [facility] Comment on above: Performed By: #### 0 0071, 97731, 46937 #### [facility] [address] [place] [address], [place] *SARS-CoV-2 COVID-19on 10-07 [id number] Not Detected Normal Not Detected [facility] Comment on above: Order Comment: The A ptima SARS-CoV-2 assay is a nucleic acid amplification test intended for the qualitative detection of RNA from SARS-CoV-2 isolated and purified from nasopharyngeal (FACT CHECKER),oropharyngeal (OP), nasal swab, sputum, and bronchoalveolar lavage (BAL) specimens from patients with signs and symptoms of infection who are suspected of COVID-19. Results are for the identification of SARS-CoV-2 RNA. The SARS-CoV-2 RNA is generally detectable during the acute phase of infection. The Aptima SARS-CoV-2 Assay on the [employer] and [employer] Fusion system is intended for use by laboratory personnel specifically instructed and trained in the operation of the [place] and [employer] Fusion system. The Aptima SARS-CoV-2 assay is only for use under the Food and Drug Administration Emergency Use Authorization. Testing is limited to laboratories certified under the Clinical Laboratory Improvement Amendments of 1988 (CLIA), 42 U.S.C. ???263a, to perform high complexity tests. Not Detected: Not detected does not preclude SARS-CoV-2 infection and should not be used as the sole basis for patient management decisions. Not detected results must be combined with clinical observations, patient history, and epidemiological information. Performed By: #### 3 1792 #### [facility] [address] [place] [address], [facility] BASIC METABOLIC PANELon 09-11 Calcium [Mass/Vol] 9.5 mg/dL Normal 8.6-10.3 [facility] Comment on above: Order Comment: No: D o not add to previous draw Performed By: #### 0 0071, 17471, 31845 #### [facility] [address] [place] [address], [place] Chloride [Moles/Vol] 100 mmol/L Normal 98-107 [facility] Comment on above: Order Comment: No: D o not add to previous draw Performed By: #### 0 0071, 45765, 42044 #### [facility] [address] [place] [address], [place] CO2 [Moles/Vol] 26 mmol/L Normal 21-31 [facility] Comment on above: Order Comment: No: D o not add to previous draw Performed By: #### 0 0071, 26292, 18332 #### [facility] [address] [place] [address], [place] Creatinine [Mass/Vol] 2.70 mg/dL High 0.60-1.20 [facility] Comment on above: Order Comment: No: D o not add to previous draw Performed By: #### 0 0071, 15667, 62502 #### [facility] [address] [place] [address], [place] GFR/1.73 sq M predicted among blacks MDRD (S/P/Bld) [Vol rate/Area] 21 ml/min/1.73sq m Abnormal >60 [facility] Comment on above: Order Comment: No: D o not add to previous draw Result Comment: Calc ulation may not be valid for patients over 70 years Performed By: #### 0 0071, , 58524 #### [facility] [address] [place] [address], [place] GFR/1.73 sq M predicted among non-blacks MDRD (S/P/Bld) [Vol rate/Area] 17 ml/min/1.73sq m Abnormal >60 [facility] Comment on above: Order Comment: No: D o not add to previous draw Result Comment: Calc ulation may not be valid for patients over 70 years Performed By: #### 0 0071, 70010, 57275 #### [facility] [address] [place] [address], [place] Glucose [Mass/Vol] 135 mg/dL High 70-100 [facility] Comment on above: Order Comment: No: D o not add to previous draw Performed By: #### 0 0071, 67104, 34065 #### [facility] [address] [place] [address], [place] Potassium [Moles/Vol] 3.5 mmol/L Normal 3.5-5.1 [facility] Comment on above: Order Comment: No: D o not add to previous draw Performed By: #### 0 0071, 03494, 03551 #### [facility] [address] Sodium [Moles/Vol] 135 mmol/L Low 136-145 [facility] Comment on above: Order Comment: No: D o not add to previous draw Performed By: #### 0 0071, 67879, 03762 #### [facility] [address] Urea nitrogen [Mass/Vol] 56 mg/dL High 7-25 [facility] Comment on above: Order Comment: No: D o not add to previous draw Performed By: #### 0 0071, 35868, 68309 #### [facility] [address] CBC W/DIFFon 10-08-2019 ABS BASOPHILS 0.1 10*3/uL Normal 0.0-0.2 [facility] Comment on above: Performed By: #### 5 3 #### [facility] [address] ABS IMM GRANS 0.0 10*3/uL Normal 0.0-0.2 [facility] Comment on above: Performed By: #### 5 0103 #### [facility] [address] ABS NEUTROPHILS 4.7 10*3/uL Normal 1.6-7.6 [facility] Comment on above: Performed By: #### 5 3 #### [facility] [address] Basophils/100 WBC (Bld) 0.6 % Normal 0.0-1.0 T [facility] Comment on above: Performed By: #### 5 3 #### [facility] [address] Eosinophils (Bld) [#/Vol] 0.7 10*3/uL High 0.0-0.5 [facility] Comment on above: Performed By: #### 5 0103 #### [facility] [address] Eosinophils/100 WBC (Bld) 8.4 % High 0.0-6.0 [facility] Comment on above: Performed By: #### 3 #### [facility] [address] Erythrocyte distribution width (RBC) [Ratio] 14.3 % Normal 11.5-15.0 [facility] Comment on above: Performed By: #### 3 #### [facility] [address] Hematocrit (Bld) [Volume fraction] 31.4 % Low 36.0-45.0 [facility] Comment on above: Performed By: #### 3 #### [facility] [address] Hemoglobin (Bld) [Mass/Vol] 10.1 g/dL Low 12.0-15.0 [facility] Comment on above: Performed By: #### 5 3 #### [facility] [address] IMMATURE GRANS 0.5 % Normal 0.0-1.0 [facility] Comment on above: Performed By: #### 5 3 #### [facility] [address] [place] [address], [facility] Lymphocytes (Bld) [#/Vol] 1.3 10*3/uL Normal 1.2-4.0 [facility] Comment on above: Performed By: #### 5 3 #### [facility] [address] [place] [address], [facility] Lymphocytes/100 WBC (Bld) 17.0 % Low 20.0-45.0 [facility] Comment on above: Performed By: #### 5 0103 #### [facility] [address] [facility] [place] [address], [facility] MCH (RBC) [Entitic mass] 29.5 pg Normal 27.0-33.0 [facility] Comment on above: Performed By: #### 5 0103 #### [facility] [address] [place] [address], [facility] MCHC (RBC) [Mass/Vol] 32.2 g/dL Normal 32.0-35.0 [facility] Comment on above: Performed By: #### 5 0103 #### [facility] [address] [place] [address], [facility] MCV (RBC) [Entitic vol] 91.8 fL Normal 82.0-98.0 [facility] Comment on above: Performed By: #### 5 3 #### [facility] [address] [place] [address], [facility] Monocytes (Bld) [#/Vol] 1.1 10*3/uL High 0.1-1.0 [facility] Comment on above: Performed By: #### 5 0103 #### [facility] [address] [place] [address], [facility] MONOS 13.4 % High 5.0-12.0 [facility] Comment on above: Performed By: #### 5 0103 #### [facility] [address] [place] [address], [facility] Neutrophils/100 WBC (Bld) 60.1 % Normal 40.0-72.0 [facility] Comment on above: Performed By: #### 5 3 #### [facility] [address] [place] [address], [facility] Nucleated RBC/100 WBC (Bld) [Ratio] 0 % Normal 0-0 [facility] Comment on above: Performed By: #### 5 0103 #### [facility] [address] [facility] [place] [address], [facility] PLAT CNT 189 10*3/uL Normal 150-400 [facility] Comment on above: Performed By: #### 5 0103 #### [facility] [address] [facility] [place] [address], [facility] RBC (Bld) [#/Vol] 3.42 10*6/uL Low 3.80-5.00 [facility] Comment on above: Performed By: #### 5 0103 #### [facility] [address] [facility] [place] [address], [facility] WBC (Bld) [#/Vol] 7.86 10*3/uL Normal 4.00-10.60 [facility] Comment on above: Performed By: #### 5 0103 #### [facility] [address] [facility] [place] [address], [facility] CREATININE URINE RANDOMon Creatinine [Mass/Vol] 79.0 mg/dL Normal [facility] Comment on above: Order Comment: No: D o not add to previous draw Result Comment: Ther e are no established reference values for random urine specimens Performed By: #### 2 5706, 91664 #### [facility] [address] [facility] [place] [address], [facility] MAGNESIUM BLOODon 10-08-2019 Magnesium [Mass/Vol] 1.7 mg/dL Low 1.9-2.7 [facility] Comment on above: Order Comment: No: D o not add to previous draw Performed By: #### 0 0071, 43501, 63923 #### [facility] [address] [facility] [place] [address], [facility] PHOSPHORUS BLOODon 0 Phosphate [Mass/Vol] 3.8 mg/dL Normal 2.5-5.0 [facility] Comment on above: Order Comment: No: D o not add to previous draw Performed By: #### 0 0071, 25725, 48381 #### [facility] [address] [place] [address], [place] POC GLUCOSE LABon 10-08-2019 Glucose [Mass/Vol] 191 mg/dL High 70-100 [facility] Comment on above: Performed By: #### 8 5499 #### [facility] [address] [place] [address], [place] Glucose [Mass/Vol] 197 mg/dL High 70-100 [facility] Comment on above: Performed By: #### 8 5499 #### [facility] [address] [place] [address], [place] Glucose [Mass/Vol] 296 mg/dL High 70-100 [facility] Comment on above: Performed By: #### 8 5499 #### [facility] [address] [place] [address], [place] UREA NITROGEN URon 0 Urea nitrogen [Mass/Vol] 606 mg/dL Normal [facility] Comment on above: Order Comment: No: D o not add to previous draw Result Comment: Ther e are no established reference values for random urine specimens Performed By: #### 0 0071, 79508, 03725 #### [facility] [address] [place] [address], [place] URINALYSIS REFLEXon 10-08-19 20 Appearance (U) CLEAR Normal CLEAR [facility] Comment on above: Order Comment: No: D o not add to previous draw Performed By: #### 0 0071, 25537, 02077 #### [facility] [address] [place] [address], [place] Bilirubin [Mass/Vol] Negative Normal NEGATIVE [facility] Comment on above: Order Comment: No: D o not add to previous draw Performed By: #### 0 0071, 85786, 47026 #### [facility] [address] [place] [address], [place] BLOOD Negative Normal NEGATIVE [facility] Comment on above: Order Comment: No: D o not add to previous draw Performed By: #### 0 0071, 74512, 05155 #### [facility] [address] [place] [address], [place] Color (U) YELLOW Normal YELLOW [facility] Comment on above: Order Comment: No: D o not add to previous draw Performed By: #### 0 0071, 66962, 80368 #### [facility] [address] [place] [address], [place] EPIS NONE SEEN Normal FEW,OCC,NONE SEEN [facility] Comment on above: Order Comment: No: D o not add to previous draw Performed By: #### 0 0071, 31199, 57143 #### [facility] [address] [place] [address], [place] Glucose [Mass/Vol] 50 mg/dL Abnormal NEGATIVE [facility] Comment on above: Order Comment: No: D o not add to previous draw Performed By: #### 0 0071, 60304, 98250 #### [facility] [address] [place] [address], [place] KETONE Negative Normal NEGATIVE [facility] Comment on above: Order Comment: No: D o not add to previous draw Performed By: #### 0 0071, 39630, 13091 #### [facility] [address] [place] [address], [place] LEUK TOD Negative Normal NEGATIVE [facility] Comment on above: Order Comment: No: D o not add to previous draw Performed By: #### 0 [id number], [id number] #### [facility] [address] [address], [place] Nitrite Ql (U) Negative Normal NEGATIVE [facility] Comment on above: Order Comment: No: D o not add to previous draw Performed By: #### 0 [id number], [id number] #### [facility] [address] [facility] [place] [place] [address], [facility] pH (Bld) 6.0 Normal 5.0-8.0 [facility] Comment on above: Order Comment: No: D o not add to previous draw Performed By: #### 0 [id number], [id number] #### [facility] [address] [facility] [place] [place] [address], [facility] Protein (U) [Mass/Vol] 100 mg/dL Abnormal NEGATIVE [facility] Comment on above: Order Comment: No: D o not add to previous draw Performed By: #### 0 [id number], [id number] #### [facility] [address] [facility] [place] [place] [address], [facility] RBC (U) [#/Vol] 0-2 Abnormal NONE SEEN [facility] Comment on above: Order Comment: No: D o not add to previous draw Performed By: #### 0 [id number], [id number] #### [facility] [address] SPEC GRAV 1.013 Low 1.015-1.020 [facility] Comment on above: Order Comment: No: D o not add to previous draw Performed By: #### 0 [id number], [id number] #### [facility] [address] [facility] [place] [place] [address], [facility] WBC UA 0-2 Abnormal NONE SEEN [facility] Comment on above: Order Comment: No: D o not add to previous draw Performed By: #### 0 [id number], [id number], [id number] #### [facility] [address] [facility]. [address] US RENALon 10-08-2019 US RENAL [facility] Department of Radiology [address] [place] [address] [id number] == Patient Name: CINTHYA WILSON : 1945 Sex: F Age: Race: White Pt. Location: [id number] Patient Status: I Ordered Date: 10/08/2019 5:15:00 AM Completed Date: 10/08/2019 11:01 AM Requesting Provider: TORIBIO BLACK Attending Provider: COLBY NEAL Report Copy To: Signs & Symptoms: Increased Creatinine History: See Comments Comments: Hydronephrosis Exam: US RENAL == US RENAL 10/08/2019 11:01 AM SIGNS AND SYMPTOMS: Increased Creatinine TECHNOLOGIST COMMENTS: Increased Creatinine QUESTION FOR THE RADIOLOGIST: Hydronephrosis TECHNIQUE: Limited retroperitoneal ultrasound. COMPARISON: Renal ultrasound December 05, 2015 FINDINGS: The right kidney measures 12.5 x 4.6 x 5.4 cm and the left ovary measures 13.1 x 5.6 x 5.6 cm. Echogenic foci with shadowing and twinkle artifact were noted on the left. No cyst, mass or hydronephrosis was identified. IMPRESSION: No hydronephrosis identified. Left-sided renal calculi. Electronically signed: Yamilteh Orellana. Transcribed by: [email or web address], User Resident: Electronically Signed by: YAMILETH ORELLANA @ 10/08/2019 11:18 AM Normal [facility] Comment on above: Order Comment: [place] nephrosis Vital Signs Date Time Vital Sign Value Performing Clinician Facility 03-07-2023 16:00-0500 Body temperature 97.6 [degF] II Lily Aldrich Work Phone: [facility] 03-07-2023 16:00-0500 Diastolic blood pressure 61 mm[Hg] II Lily Aldrich Work Phone: [facility] 03-07-2023 16:00-0500 Heart rate 69 /min II Lily Aldrich Work Phone: [facility] 03-07-2023 16:00-0500 Inhaled oxygen flow rate 3 L/min II Lily Aldrich Work Phone: [facility] 03-07-2023 16:00-0500 Respiratory rate 18 /min II Lily Aldrich Work Phone: [facility] 03-07-2023 16:00-0500 SaO2% (BldA) [Mass fraction] 97 % II Lily Aldrich Work Phone: [facility] 03-07-2023 16:00-0500 Systolic blood pressure 128 mm[Hg] II Lily Adlrich Work Phone: [facility] 03-07-2023 06:00-0500 Body weight 60.6 kg II Lily Aldrich Work Phone: [facility] 03-06-2023 13:52-0500 Body height 162.56 cm II Lily Aldrich Work Phone: [facility] 03-05-2023 21:36-0500 Body temperature 97.1 [degF] II Lily Aldrich Work Phone: [facility] 03-05-2023 21:36-0500 Diastolic blood pressure 59 mm[Hg] II Lily Aldrich Work Phone: [facility] 03-05-2023 21:36-0500 Heart rate 81 /min II Lily Aldrich Work Phone: [facility] 03-05-2023 21:36-0500 Inhaled oxygen flow rate 3 L/min II Lily Aldrich Work Phone: [facility] 03-05-2023 21:36-0500 Respiratory rate 18 /min II Lily Aldrich Work Phone: [facility] 03-05-2023 21:36-0500 SaO2% (BldA) [Mass fraction] 100 % II Lily Aldrich Work Phone: [facility] 03-05-2023 21:36-0500 Systolic blood pressure 101 mm[Hg] II Lily Aldrich Work Phone: [facility] 03-05-2023 17:06-0500 Body height 162.56 cm II Lily Aldrich Work Phone: [facility] 03-05-2023 17:06-0500 Body weight 60 kg II Lily Aldrich Work Phone: [facility] 01-02-2023 11:48-0500 Body temperature 98.4 [degF] II Lily Aldrich Work Phone: [facility] 01-02-2023 11:48-0500 Diastolic blood pressure 65 mm[Hg] II Lily Aldrich Work Phone: [facility] 01-02-2023 11:48-0500 Heart rate 58 /min II Lily Aldrich Work Phone: [facility] 01-02-2023 11:48-0500 Inhaled oxygen flow rate 2 L/min II Lily Aldrich Work Phone: [facility] 01-02-2023 11:48-0500 Respiratory rate 20 /min II Lily Aldrich Work Phone: [facility] 01-02-2023 11:48-0500 SaO2% (BldA) [Mass fraction] 94 % II Lily Aldrich Work Phone: [facility] 01-02-2023 11:48-0500 Systolic blood pressure 140 mm[Hg] II Lily Aldrich Work Phone: [facility] 01-02-2023 06:00-0500 Body weight 60.6 kg II Lily Aldrich Work Phone: [facility] 11-20-2023 16:15-0500 Body height 162.56 cm II Lily Aldrich Work Phone: [facility] 12-30-2022 01:30-0500 Diastolic blood pressure 53 mm[Hg] II Lily Aldrich Work Phone: [facility] 12-30-2022 01:30-0500 Heart rate 47 /min II Lily Aldrich Work Phone: [facility] 12-30-2022 01:30-0500 Inhaled oxygen flow rate 3 L/min II Lily Aldrich Work Phone: [facility] 12-30-2022 01:30-0500 SaO2% (BldA) [Mass fraction] 91 % II Lily Aldrich Work Phone: [facility] 12-30-2022 01:30-0500 Systolic blood pressure 95 mm[Hg] II Lily Aldrich Work Phone: [facility] 12-30-2022 00:46-0500 Body temperature 98.8 [degF] II Lily Aldrich Work Phone: [facility] 12-29-2022 22:10-0500 Respiratory rate 20 /min II Lily Aldrich Work Phone: [facility] 12-29-2022 21:54-0500 Body height 162.56 cm II Lily Aldrich Work Phone: [facility] 12-29-2022 21:54-0500 Body weight 63.3 kg II Lily Aldrich Work Phone: [facility] 12-16-2022 16:00-0500 Heart rate 72 /min II Lily Aldrich Work Phone: [facility] 12-16-2022 16:00-0500 Inhaled oxygen flow rate 2 L/min II Lily Aldrich Work Phone: [facility] 12-16-2022 16:00-0500 Respiratory rate 18 /min II Lily Aldrich Work Phone: [facility] 12-16-2022 16:00-0500 SaO2% (BldA) [Mass fraction] 98 % II Lily Aldrich Work Phone: [facility] 12-16-2022 15:38-0500 Body temperature 97.5 [degF] II Lily Aldrich Work Phone: [facility] 12-16-2022 15:38-0500 Diastolic blood pressure 50 mm[Hg] II Lily Aldrich Work Phone: [facility] 12-16-2022 15:38-0500 Systolic blood pressure 98 mm[Hg] II Lily Aldrich Work Phone: [facility] 12-16-2022 06:00-0500 Body weight 64.6 kg II Lily Aldrich Work Phone: [facility] 12-13-2022 20:21-0400 Body height 162.56 cm II Lily Aldrich Work Phone: [facility] 12-09-2022 16:37-0400 Body temperature 98.1 [degF] II Lily Aldrich Work Phone: [facility] 12-09-2022 16:37-0400 Diastolic blood pressure 63 mm[Hg] II Lily Aldrich Work Phone: [facility] 12-09-2022 16:37-0400 Heart rate 76 /min II Lily Aldrich Work Phone: [facility] 12-09-2022 16:37-0400 Inhaled oxygen flow rate 3 L/min II Lily Aldrich Work Phone: [facility] 12-09-2022 16:37-0400 Respiratory rate 20 /min II Lily Aldrich Work Phone: [facility] 12-09-2022 16:37-0400 SaO2% (BldA) [Mass fraction] 100 % II Lily Aldrich Work Phone: [facility] 12-09-2022 16:37-0400 Systolic blood pressure 132 mm[Hg] II Lily Aldrich Work Phone: [facility] 12-09-2022 06:00-0400 Body weight 61.2 kg II Lily Aldrich Work Phone: [facility] 12-06-2022 23:22-0400 Body height 162.56 cm II Lily Aldrich Work Phone: [facility] 12-06-2022 22:30-0400 Diastolic blood pressure 53 mm[Hg] II Lily Aldrich Work Phone: [facility] 12-06-2022 22:30-0400 Heart rate 80 /min II Lily Aldrich Work Phone: [facility] 12-06-2022 22:30-0400 Respiratory rate 20 /min II Lily Aldrich Work Phone: [facility] 12-06-2022 22:30-0400 SaO2% (BldA) [Mass fraction] 98 % II Lily Aldrich Work Phone: [facility] 12-06-2022 22:30-0400 Systolic blood pressure 103 mm[Hg] II Lily Aldrich Work Phone: [facility] 12-06-2022 21:26-0400 Inhaled oxygen flow rate 3 L/min II Lily Aldrich Work Phone: [facility] 12-06-2022 18:33-0400 Body height 162.56 cm II Lily Aldrich Work Phone: [facility] 12-06-2022 18:33-0400 Body weight 63.8 kg II Lily Aldrich Work Phone: [facility] 12-06-2022 18:32-0400 Body temperature 97.3 [degF] II Lily Aldrich Work Phone: [facility] 10-31-2022 16:00-0400 Inhaled oxygen flow rate 3 L/min II Lily Aldrich Work Phone: [facility] 10-31-2022 15:51-0400 Diastolic blood pressure 62 mm[Hg] II Lily Aldrich Work Phone: [facility] 10-31-2022 15:51-0400 Heart rate 78 /min II Lily Aldrich Work Phone: [facility] 10-31-2022 15:51-0400 Respiratory rate 16 /min II Lily Aldrich Work Phone: [facility] 10-31-2022 15:51-0400 SaO2% (BldA) [Mass fraction] 98 % II Lily Aldrich Work Phone: [facility] 10-31-2022 15:51-0400 Systolic blood pressure 100 mm[Hg] II Lily Aldrich Work Phone: [facility] 10-31-2022 11:13-0400 Body temperature 97.7 [degF] II Lily Aldrich Work Phone: [facility] 10-31-2022 05:31-0400 Body weight 64 kg II Lily Aldrich Work Phone: [facility] 10-30-2022 15:22-0400 Body height 162.56 cm II Lily Aldrich Work Phone: [facility] 10-30-2022 00:16-0400 Body height 162.56 cm II Lily Aldrich Work Phone: [facility] 10-30-2022 00:16-0400 Body temperature 99.4 [degF] II Lily Aldrich Work Phone: [facility] 10-30-2022 00:16-0400 Body weight 62.5 kg II Lily Aldrich Work Phone: [facility] 10-30-2022 00:16-0400 Diastolic blood pressure 43 mm[Hg] II Lily Aldrich Work Phone: [facility] 10-30-2022 00:16-0400 Heart rate 49 /min II Lily Aldrich Work Phone: [facility] 10-30-2022 00:16-0400 Inhaled oxygen flow rate 4 L/min II Lily Aldrich Work Phone: [facility] 10-30-2022 00:16-0400 Respiratory rate 16 /min II Lily Aldrich Work Phone: [facility] 10-30-2022 00:16-0400 SaO2% (BldA) [Mass fraction] 97 % II Lily Aldrich Work Phone: [facility] 10-30-2022 00:16-0400 Systolic blood pressure 88 mm[Hg] II Lily Aldrich Work Phone: [facility] 05-20-2022 15:19-0400 Body temperature 98.3 [degF] II Lily Aldrich Work Phone: [facility] 05-20-2022 15:19-0400 Diastolic blood pressure 62 mm[Hg] II Lily Aldrich Work Phone: [facility] 05-20-2022 15:19-0400 Heart rate 68 /min II Lily Aldrich Work Phone: [facility] 05-20-2022 15:19-0400 Inhaled oxygen flow rate 3 L/min II Lily Aldrich Work Phone: [facility] 05-20-2022 15:19-0400 Respiratory rate 16 /min II Lily Aldrich Work Phone: [facility] 05-20-2022 15:19-0400 SaO2% (BldA) [Mass fraction] 100 % II Lily Aldrich Work Phone: [facility] 05-20-2022 15:19-0400 Systolic blood pressure 147 mm[Hg] II Lily Aldrich Work Phone: [facility] 05-20-2022 06:00-0400 Body weight 62.4 kg II Lily Aldrich Work Phone: [facility] 05-17-2022 18:19-0400 Body height 162.56 cm II Lily Aldrich Work Phone: [facility] 05-02-2022 14:40-0400 Diastolic blood pressure 66 mm[Hg] II Lily Aldrich Work Phone: [facility] 05-02-2022 14:40-0400 Heart rate 66 /min II Lily Aldrich Work Phone: [facility] 05-02-2022 14:40-0400 Inhaled oxygen flow rate 3 L/min II Lily Aldrich Work Phone: [facility] 05-02-2022 14:40-0400 Respiratory rate 18 /min II Lily Aldrich Work Phone: [facility] 05-02-2022 14:40-0400 SaO2% (BldA) [Mass fraction] 97 % II Lily Aldrich Work Phone: [facility] 05-02-2022 14:40-0400 Systolic blood pressure 131 mm[Hg] II Lily Aldrich Work Phone: [facility] 05-02-2022 14:30-0400 Diastolic blood pressure 57 mm[Hg] II Lily Aldrich Work Phone: [facility] 05-02-2022 14:30-0400 Heart rate 56 /min II Lily Aldrich Work Phone: [facility] 05-02-2022 14:30-0400 Inhaled oxygen flow rate 3 L/min II Lily Aldrich Work Phone: [facility] 05-02-2022 14:30-0400 Respiratory rate 22 /min II Lily Aldrich Work Phone: [facility] 05-02-2022 14:30-0400 SaO2% (BldA) [Mass fraction] 98 % II Lily Aldrich Work Phone: [facility] 05-02-2022 14:30-0400 Systolic blood pressure 134 mm[Hg] II Lily Aldrich Work Phone: [facility] 05-02-2022 13:27-0400 Body height 162.56 cm II Lily Aldrich Work Phone: [facility] 05-02-2022 13:27-0400 Body weight 63.5 kg II Lily Aldrich Work Phone: [facility] 04-18-2022 11:00-0500 Body height 163.19 cm Maxime Bhatti Other [employer] Other 04-18-2022 11:00-0500 Body mass index (BMI) [Ratio] 25.71 kg/m2 Maxime Bhatti Other [employer] Other 04-18-2022 11:00-0500 Body temperature 97.8 [degF] Maxime Bhatti Other [employer] Other 04-18-2022 11:00-0500 Body weight 68.49 kg Maxime Bhatti Other [employer] Other 04-18-2022 11:00-0500 Diastolic blood pressure 56 mm[Hg] Maxime Bhatti Other [employer] Other 04-18-2022 11:00-0500 SaO2% (BldA) [Mass fraction] 91 % Maxime Bhatti Other [employer] Other 04-18-2022 11:00-0500 Systolic blood pressure 102 mm[Hg] Maxime Bhatti Other [employer] Other 02-27-2022 13:20-0500 Body temperature 98.8 [degF] II Lily Aldrich Work Phone: [facility] 02-27-2022 13:20-0500 Diastolic blood pressure 55 mm[Hg] II Lily Aldrich Work Phone: [facility] 02-27-2022 13:20-0500 Heart rate 68 /min II Lily Aldrich Work Phone: [facility] 02-27-2022 13:20-0500 Inhaled oxygen flow rate 3 L/min II Lily Aldrich Work Phone: [facility] 02-27-2022 13:20-0500 Respiratory rate 16 /min II Lily Aldrich Work Phone: [facility] 02-27-2022 13:20-0500 SaO2% (BldA) [Mass fraction] 99 % II Lily Aldrich Work Phone: [facility] 02-27-2022 13:20-0500 Systolic blood pressure 123 mm[Hg] II Lily Aldrich Work Phone: [facility] 02-27-2022 03:06-0500 Body weight 74.3 kg II Lily Aldrich Work Phone: [facility] 02-23-2022 15:27-0500 Body height 162.56 cm II Lily Aldrich Work Phone: [facility] 02-22-2022 20:12-0500 Diastolic blood pressure 69 mm[Hg] II Lily Aldrich Work Phone: [facility] 02-22-2022 20:12-0500 Heart rate 71 /min II Lily Aldrich Work Phone: [facility] 02-22-2022 20:12-0500 Inhaled oxygen flow rate 3 L/min II Lily Aldrich Work Phone: [facility] 02-22-2022 20:12-0500 Respiratory rate 24 /min II Lily Aldrich Work Phone: [facility] 02-22-2022 20:12-0500 SaO2% (BldA) [Mass fraction] 100 % II Lily Aldrich Work Phone: [facility] 02-22-2022 20:12-0500 Systolic blood pressure 155 mm[Hg] II Lily Aldrich Work Phone: [facility] 02-22-2022 19:24-0500 Body height 162.56 cm II Lily Aldrich Work Phone: [facility] 02-22-2022 19:24-0500 Body weight 73.5 kg II Lily Aldrich Work Phone: [facility] 02-22-2022 18:38-0500 Body temperature 98.3 [degF] II Lily Aldrich Work Phone: [facility] 02-08-2022 13:00-0500 Body height 163.19 cm Geronimo [employer] Other [employer] Other 02-08-2022 13:00-0500 Diastolic blood pressure 60 mm[Hg] Geronimo [employer] Other [employer] Other 02-08-2022 13:00-0500 Respiratory rate 18 /min Geronimo [employer] Other [employer] Other 02-08-2022 13:00-0500 Systolic blood pressure 112 mm[Hg] Geronimo [employer] Other [employer] Other 01-17-2022 12:30-0500 Body height 163.19 cm Tessie Walker Other [employer] Other 01-17-2022 12:30-0500 Body mass index (BMI) [Ratio] 25.54 kg/m2 Tessie Walker Other [employer] Other 01-17-2022 12:30-0500 Body temperature 97.8 [degF] Tessie Walker Other [employer] Other 01-17-2022 12:30-0500 Body weight 68.04 kg Tessie Walker Other [employer] Other 01-17-2022 12:30-0500 Diastolic blood pressure 52 mm[Hg] Tessie Walker Other [employer] Other 01-17-2022 12:30-0500 SaO2% (BldA) [Mass fraction] 89 % Tessie Walker Other [employer] Other 01-17-2022 12:30-0500 Systolic blood pressure 110 mm[Hg] Tessie Walker Other [employer] Other 12-20-2021 10:00-0500 Body height 163.19 cm Maxime Bhatti Other [employer] Other 12-20-2021 10:00-0500 Body mass index (BMI) [Ratio] 28.44 kg/m2 Maxime Bhatti Other [employer] Other 12-20-2021 10:00-0500 Body temperature 98.2 [degF] Maxime Bhatti Other [employer] Other 12-20-2021 10:00-0500 Body weight 75.75 kg Maxime Bhatti Other [employer] Other 12-20-2021 10:00-0500 Diastolic blood pressure 40 mm[Hg] Maxime Bhatti Other [employer] Other 12-20-2021 10:00-0500 SaO2% (BldA) [Mass fraction] 96 % Maxime Bhatti Other [employer] Other 12-20-2021 10:00-0500 Systolic blood pressure 110 mm[Hg] Maxime Bhatti Other [employer] Other 12-12-2021 10:20-0400 Diastolic blood pressure 46 mm[Hg] II Lily Aldrich Work Phone: [facility] 12-12-2021 10:20-0400 Heart rate 58 /min II Lily Aldrich Work Phone: [facility] 12-12-2021 10:20-0400 Inhaled oxygen flow rate 3 L/min II Lily Aldrich Work Phone: [facility] 12-12-2021 10:20-0400 Systolic blood pressure 105 mm[Hg] II Lily Aldrich Work Phone: [facility] 12-10-2021 10:23-0400 Body temperature 98.2 [degF] II Lily Aldrich Work Phone: [facility] 12-10-2021 10:23-0400 Respiratory rate 20 /min II Lily Aldrich Work Phone: [facility] 12-10-2021 10:23-0400 SaO2% (BldA) [Mass fraction] 99 % II Lily Aldrich Work Phone: [facility] 11-28-2021 12:20-0400 Body height 163.19 cm Geronimo Fofana Other [employer] Other 11-28-2021 12:20-0400 Body temperature 96.4 [degF] Geronimo Fofana Other [employer] Other 11-28-2021 12:20-0400 Diastolic blood pressure 56 mm[Hg] Geronimo [employer] Other [employer] Other 11-28-2021 12:20-0400 Respiratory rate 18 /min Geronimo Fofana Other [employer] [facility] [employer] Other 11-28-2021 12:20-0400 SaO2% (BldA) [Mass fraction] 94 % Geronimo Fofana Other [employer] [facility] [employer] Other 11-28-2021 12:20-0400 Systolic blood pressure 114 mm[Hg] Geronimo Fofana Other [employer] [facility] [employer] Other 11-20-2021 12:45-0400 Heart rate 57 /min II Lily Aldrich Work Phone: [facility] 11-20-2021 12:45-0400 Respiratory rate 20 /min II Lily Aldrich Work Phone: [facility] 11-20-2021 11:28-0400 Body temperature 98.2 [degF] II Lily Aldrich Work Phone: [facility] 11-20-2021 11:28-0400 Diastolic blood pressure 45 mm[Hg] II Lily Aldrich Work Phone: [facility] 11-20-2021 11:28-0400 SaO2% (BldA) [Mass fraction] 94 % II Lily Aldrich Work Phone: [facility] 11-20-2021 11:28-0400 Systolic blood pressure 122 mm[Hg] II Lily Aldrich Work Phone: [facility] 11-20-2021 09:25-0400 Inhaled oxygen flow rate 1 L/min II Lily Aldrich Work Phone: [facility] 11-20-2021 06:00-0400 Body weight 71.8 kg II Lily Aldrich Work Phone: [facility] 11-18-2021 13:14-0400 Body height 162.56 cm II Lily Aldrich Work Phone: [facility] 11-17-2021 07:40-0400 Inhaled oxygen concentration 2 % II Lily Aldrich Work Phone: [facility] 09-20-2021 11:30-0400 Body height 163.19 cm Tessie Montesmarion Other [employer] Other 09-20-2021 11:30-0400 Body mass index (BMI) [Ratio] 28.44 kg/m2 Tessie Denise Other [employer] Other 09-20-2021 11:30-0400 Body temperature 97.7 [degF] Tessie Denise Other [employer] Other 09-20-2021 11:30-0400 Body weight 75.75 kg Tessie Denise Other [employer] Other 09-20-2021 11:30-0400 Diastolic blood pressure 40 mm[Hg] Tessie Denise Other [employer] Other 09-20-2021 11:30-0400 SaO2% (BldA) [Mass fraction] 90 % Tessie Denise Other [employer] Other 09-20-2021 11:30-0400 Systolic blood pressure 120 mm[Hg] Tessie Denise Other [employer] Other 07-25-2021 12:40-0400 Body height 163.19 cm Geronimo [employer] Other [employer] Other 07-25-2021 12:40-0400 Body mass index (BMI) [Ratio] 28.58 kg/m2 Geronimo [employer] Other [employer] Other 07-25-2021 12:40-0400 Body temperature 96.1 [degF] Geronimo Dings Other [employer] Other 07-25-2021 12:40-0400 Body weight 76.11 kg Aztoya Dings Other [employer] Other 07-25-2021 12:40-0400 Diastolic blood pressure 53 mm[Hg] Geronimo Dings Other [employer] Other 07-25-2021 12:40-0400 Respiratory rate 16 /min Geronimo Dings Other [employer] Other 07-25-2021 12:40-0400 SaO2% (BldA) [Mass fraction] 93 % Geronimo Dings Other [employer] Other 07-25-2021 12:40-0400 Systolic blood pressure 124 mm[Hg] Iglesiaiz Bakarnulfos Other [employer] Other 06-21-2021 12:30-0400 Body height 163.19 cm Tessie Denise Other [employer] Other 06-21-2021 12:30-0400 Body mass index (BMI) [Ratio] 27.25 kg/m2 Tessie Walker Other [employer] Other 06-21-2021 12:30-0400 Body weight 72.58 kg Tessie Denise Other [employer] Other 06-21-2021 12:30-0400 Diastolic blood pressure 64 mm[Hg] Tessie Walker Other [employer] Other 06-21-2021 12:30-0400 Respiratory rate 16 /min Tessie Walker Other [employer] Other 06-21-2021 12:30-0400 SaO2% (BldA) [Mass fraction] 97 % Tessie Walker Other [employer] Other 06-21-2021 12:30-0400 Systolic blood pressure 150 mm[Hg] Tessie Walker Other [employer] Other 05-16-2021 15:20-0400 Body height 163.19 cm Geronimo [employer] Other [employer] Other 05-16-2021 15:20-0400 Body mass index (BMI) [Ratio] 27.76 kg/m2 Geronimo [employer] Other [employer] Other 05-16-2021 15:20-0400 Body temperature 97.7 [degF] Geronimo [employer] Other [employer] Other 05-16-2021 15:20-0400 Body weight 73.94 kg Aztoya [employer] Other [employer] Other 05-16-2021 15:20-0400 Diastolic blood pressure 64 mm[Hg] Aziz [employer] Other [employer] Other 05-16-2021 15:20-0400 Respiratory rate 18 /min Geronimo [employer] Other [employer] Other 05-16-2021 15:20-0400 SaO2% (BldA) [Mass fraction] 96 % Geronimo [employer] Other [employer] Other 05-16-2021 15:20-0400 Systolic blood pressure 159 mm[Hg] Geronimo Fofana Other [employer] Other 01-02-2021 17:20-0500 Body height 163.19 cm Narinder Toussaint Other [employer] Other 01-02-2021 17:20-0500 Body mass index (BMI) [Ratio] 30.96 kg/m2 Narinder Toussaint Other [employer] Other 01-02-2021 17:20-0500 Body temperature 97.8 [degF] Narinder Toussaint Other [employer] Other 01-02-2021 17:20-0500 Body weight 82.46 kg Narinder Toussaint Other [employer] Other 01-02-2021 17:20-0500 Diastolic blood pressure 62 mm[Hg] Narinder Toussaint Other [employer] Other 01-02-2021 17:20-0500 Respiratory rate 18 /min Narinder Toussaint Other [employer] Other 01-02-2021 17:20-0500 SaO2% (BldA) [Mass fraction] 94 % Narinder Toussaint Other [employer] Other 01-02-2021 17:20-0500 Systolic blood pressure 145 mm[Hg] Narinder Breana Other [employer] Other 04-17-2020 13:29-0500 BP Diastolic 54 mm[Hg] Lily Aldrich [facility] 04-17-2020 13:29-0500 BP Systolic 116 mm[Hg] Lily Aldrich [facility] 04-17-2020 12:59-0500 Pulse (Heart Rate) 61 /min Lily Aldrich [facility] 04-17-2020 12:21-0500 Body Temperature 98.8 [degF] Lily Aldrich [facility] 04-17-2020 12:21-0500 Respiratory Rate 14 /min Lily Aldrich [facility] Encounters Encounter Date Encounter Type Care Provider Facility Start: 03-25-2023 End: 03-26-2023 ambulatory Julius Elizondo Facility:[facility] Start: 03-25-2023 End: 03-25-2023 Patient encounter procedure Julius Elizondo [facility] Start: 03-18-2023 End: 03-19-2023 ambulatory Julius Elizondo Facility:[facility] Start: 03-05-2023 End: 03-07-2023 ambulatory Essam Elashi Facility:[facility] Start: 03-05-2023 Evaluation and management of inpatient II Lily Nasima Work Phone: [facility] Work Phone: Start: 03-05-2023 Non-patient / Non-visit II Giuliano Aldrich Work Phone: [facility] Work Phone: Start: 03-05-2023 observation encounter II Florentin nancy Aldrich Work Phone: [facility] Work Phone: Start: 03-04-2023 End: 03-05-2023 ambulatory Julius Elizondo Facility:[facility] Start: 03-04-2023 End: 03-04-2023 Patient encounter procedure Julius Elizondo [facility] Start: 02-25-2023 End: 02-26-2023 ambulatory Stephan R Dolce Facility:[facility] Start: 02-25-2023 End: 02-25-2023 Patient encounter procedure Julius Elizondo [facility] Start: 02-25-2023 End: 02-25-2023 ambulatory NADEEM SANCHEZ [facility] Start: 02-20-2023 End: 02-20-2023 ambulatory LILY ALDRICH Not Available Start: 02-20-2023 End: 02-20-2023 ambulatory STEPHAN R DOLCE Not Available Start: 02-17-2023 ambulatory ANGELICA NUNES [facility] Start: 02-17-2023 End: 02-17-2023 ambulatory Wood Lucas Facility:[facility] Start: 02-17-2023 End: 02-17-2023 ambulatory II Lily Aldrich Work Phone: [facility] Work Phone: Start: 02-17-2023 End: 02-17-2023 Departed Referred II Lilystephanie Aldrich Work Phone: [facility]Dialysis Work Phone: Start: 02-06-2023 End: 02-06-2023 ambulatory STEPHAN R DOLCE Not Available Start: 01-31-2023 Evaluation and management of inpatient THOMAS THOMASUR [facility] Start: 01-31-2023 End: 01-31-2023 Evaluation and management of inpatient RYAN LEIGHA [facility] Start: 01-30-2023 Evaluation and management of inpatient NEISHANneka AVILA [facility] Start: 01-29-2023 Emergency department patient visit ANALILIA LUKE [facility] Start: 01-29-2023 End: 02-01-2023 Evaluation and management of inpatient DINORAHRuddy JOSEFINA [facility] Start: 01-16-2023 End: 01-16-2023 ambulatory STEPHAN R DOLCE Not Available Start: 01-13-2023 End: 01-13-2023 ambulatory LILY ALDRICH Not Available Start: 01-06-2023 End: 01-06-2023 ambulatory RYAN [facility] Start: 12-30-2022 End: 01-02-2023 Evaluation and management of inpatient Lily Aldrich Facility:[facility] Start: 12-30-2022 End: 01-02-2023 Evaluation and management of inpatient II Lily Aldrich Work Phone: [facility] Work Phone: Start: 12-26-2022 End: 12-26-2022 ambulatory EHAB [facility] Start: 12-26-2022 End: 12-26-2022 ambulatory DIANNAEMLIY ROJAS Not Available Start: 12-24-2022 End: 12-25-2022 ambulatory Stephan Elizodno Facility:[facility] Start: 12-24-2022 End: 12-24-2022 Patient encounter procedure Stephan Elizondo [facility] Start: 12-13-2022 End: 12-16-2022 Evaluation and management of inpatient Lily Aldrich Facility:[facility] Start: 12-13-2022 End: 12-13-2022 ambulatory UNKNOWN PROVIDER Facility:[facility] Start: 12-13-2022 End: 12-16-2022 Evaluation and management of inpatient II Lily Aldrich Work Phone: [facility] Work Phone: Start: 12-09-2022 End: 12-09-2022 ambulatory Lily Aldrich Facility:[facility] Start: 12-09-2022 End: 12-09-2022 ambulatory II Lily Aldrich Work Phone: [facility] Work Phone: Start: 12-09-2022 End: 12-09-2022 Patient encounter procedure II Lily Aldrich Work Phone: [facility]Electrodiagnostics Work Phone: Start: 12-08-2022 End: 12-09-2022 Evaluation and management of inpatient Edie Michel Facility:[facility] Start: 12-08-2022 End: 12-09-2022 Evaluation and management of inpatient II Lily Aldrich Work Phone: [facility] Work Phone: Start: 12-06-2022 Evaluation and management of inpatient II Lily Aldrich Work Phone: [facility] Work Phone: Start: 12-06-2022 observation encounter II Florentin Aldrich Work Phone: [facility] Work Phone: Start: 10-30-2022 End: 10-31-2022 Evaluation and management of inpatient Lily Aldrich Facility:[facility] Start: 10-30-2022 End: 10-31-2022 Evaluation and management of inpatient II Lily Aldrich Work Phone: [facility] Work Phone: Start: 10-29-2022 Evaluation and management of inpatient II Lily Aldrich Work Phone: [facility] Work Phone: Start: 10-29-2022 observation encounter II Florentin Aldrich Work Phone: [facility] Work Phone: Start: 10-04-2022 End: 10-04-2022 ambulatory [facility] Start: 09-09-2022 End: 09-09-2022 ambulatory [facility] Start: 08-06-2022 End: 08-06-2022 ambulatory LAURA [facility] Start: 05-31-2022 End: 06-01-[address] LILY ALDRICH Facility: Start: 05-17-2022 End: 05-20-2022 Evaluation and management of inpatient Lily Aldrich Facility:[facility] Start: 05-17-2022 End: 05-20-2022 Evaluation and management of inpatient II Lilystephanie Aldrich Work Phone: [facility] Work Phone: Start: 05-02-2022 End: 05-02-2022 ambulatory Lily Nasima Facility:[facility] Start: 05-02-2022 End: 05-02-2022 Admission to same day surgery center II Lily Nasima Work Phone: [facility]-Interventional Radiology Work Phone: Start: 05-02-2022 End: 05-02-2022 ambulatory II Lily Nasima Work Phone: [facility] Work Phone: Start: 04-18-2022 Office outpatient vi sit 15 minutes Maxime Bhatti [facility] Vascular Surgery Start: 04-18-2022 End: 04-18-2022 ambulatory Lily Aldrich Facility:[facility] Start: 04-18-2022 End: 04-18-2022 ambulatory II Lilystephanie Aldrich Work Phone: [facility] Work Phone: Start: 04-18-2022 End: 04-18-2022 Patient encounter procedure II Lily Aldrich Work Phone: [facility]-Ultrasound [facility] Start: 04-12-2022 End: 04-12-2022 ambulatory Maxime Bhatti Other [facility] [employer] Other Start: 04-12-2022 Telephone encounter Maxime Hopkins [facility] Start: 04-04-2022 End: 04-05-[address] LILY ALDRICH Facility:[facility] Start: 02-23-[address] Lily Aldrich II Facility:[id number] Start: 02-22-2022 End: 02-27-2022 Evaluation and management of inpatient II Lily Aldrich Work Phone: [facility] Work Phone: Start: 02-18-2022 End: 02-18-[address] LILY ALDRICH Facility:[facility] Start: 02-14-2022 End: 02-15-[address] LILY ALDRICH Facility:[facility] Start: 02-08-2022 (INJECTION) INJECTION Aztoya Soodarnulfos [facility] Start: 02-08-2022 End: 02-08-2022 ambulatory Aziz Bakhous Other [employer] Other Start: 01-31-2022 End: 01-31-2022 ambulatory Aziz Bakhous Other [employer] Other Start: 01-31-2022 Telephone encounter Aziz Bakhous [facility] Start: 01-30-2022 Telephone encounter Aziz Bakhous [facility] Start: 01-30-2022 End: 01-30-2022 ambulatory II Lily Aldrich Work Phone: [facility] Work Phone: Start: 01-30-2022 End: 01-30-2022 Patient encounter procedure II Lily Aldrich Work Phone: [facility]-Lab [facility] [employer] Start: 01-17-2022 End: 01-17-2022 ambulatory Tessie Walker Other [employer] Other Start: 01-17-2022 Follow-up encounter Tessie White [facility] Start: 01-17-2022 End: 01-17-2022 Patient encounter procedure II Lily Aldrich Work Phone: [facility]-Ultrasound [facility] Start: 01-14-2022 End: 01-15-[address] LILY ALDRICH Facility:[facility] Start: 12-20-2021 End: 12-20-2021 ambulatory Maxime Bhatti Other [employer] Other Start: 12-20-2021 Office outpatient vi sit 15 minutes Maxime Bhatti [facility] Start: 12-12-2021 End: 12-12-2021 ambulatory II Lily Aldrich Work Phone: [facility] Work Phone: Start: 12-12-2021 End: 12-12-2021 Discharged Recurring II Lily Aldrich Work Phone: [facility]-Infusion Therapy - O/P Start: 11-28-2021 End: 11-28-2021 ambulatory Geronimo Fofana Other [employer] Other Start: 11-28-2021 Office outpatient vi sit 25 minutes Geronimo Dings [facility] Start: 11-22-2021 End: 11-23-[address] LILY ALDRICH Facility:[facility] Start: 11-16-[address] Lily Aldrich II Facility:[facility] Start: 11-16-[address] Lily Aldrich II Facility:[id number] Start: 11-16-2021 End: 11-20-2021 Evaluation and management of inpatient II Lily Nasima Work Phone: [facility] Start: 11-16-2021 End: 11-16-[address] LLIY ALDRICH Facility: Start: 11-04-2021 End: 11-12-2021 Evaluation and management of inpatient DR JULIUS LINDA Facility:[facility] Start: 10-19-2021 End: 10-21-2021 Evaluation and management of inpatient DR LILY ALDRICH Facility:[facility] Start: 09-20-2021 End: 09-20-2021 ambulatory Tessie Walker Other [employer] Other Start: 09-20-2021 Follow-up encounter Tessie White [facility] Start: 09-20-2021 End: 09-20-2021 Patient encounter procedure II Lily Aldrich Work Phone: [facility]-Ultrasound [facility] Start: 08-29-2021 End: 09-02-2021 Evaluation and management of inpatient DR LILY ALDRICH Facility:[facility] Start: 07-25-2021 End: 07-25-2021 ambulatory Aziz Bakhous Other [employer] Other Start: 07-25-2021 Office outpatient vi sit 25 minutes Aziz Bakhous [facility] Start: 07-12-2021 End: 07-12-[address] LILY ALDRICH Facility:[facility] Start: 07-11-2021 End: 07-12-[address] LILY ALDRICH Facility:[facility] Start: 06-25-2021 End: 06-25-2021 ambulatory Maxime Bhatti Other [employer] Other Start: 06-25-2021 Encounter for other preprocedural examination Maxime Bhatti [facility] Vascular Surgery Start: 06-25-2021 Telephone encounter Maxime Hopkins [facility] Vascular Surgery Start: 06-21-2021 End: 06-21-2021 ambulatory Tessie Walker Other [employer] Other Start: 06-21-2021 FQ visit new patient Tessie aquino [facility] Vascular Surgery Start: 05-16-2021 End: 05-16-2021 ambulatory Aziz Bakhous Other [employer] Other Start: 05-16-2021 Office outpatient vi sit 25 minutes Aziz Bakhous [facility] Start: 01-02-2021 End: 01-02-2021 ambulatory Essam Elashi Other [employer] Other Start: 01-02-2021 Office outpatient vi sit 25 minutes Essam Elashi [facility] Start: 05-16-2020 End: 05-16-2020 Patient encounter procedure Lily Aldrich -Pre-Surgical Testing Start: 04-17-2020 End: 04-17-2020 Discharged Recurring Lily Aldrich -Infusion Therapy - O/P Start: 03-27-2020 End: 03-27-2020 Patient encounter procedure Lily Aldrich -Lab [facility] Start: 10-08-2019 End: 10-14-2019 Evaluation and management of inpatient COLBY AL-HOURANI Facility:[facility] Procedures Date Procedure Procedure Detail Performing Clinician Start: 03-05-2023 CT of head without contrast II Lily Aldrich Work Phone: Start: 03-05-2023 Plain chest X-ray II Steven Aldrich Work Phone: Start: 12-30-2022 Respiratory Panel (PCR) II Lily Aldrich Work Phone: Start: 12-30-2022 Screening for occult blood in feces II Lily Aldrich Work Phone: Start: 12-30-2022 Antibody screen Lily Aldrich Comment on above: Result Comment: PERF ORMED BY:[facility] [place], [place] [id number] MEDICAL DIRECTORRAMEZ LARSON M.D. Start: 12-30-2022 Ultrasonography of liver II Lily Aldrich Work Phone: Start: 12-30-2022 Diagnostic radiograp hy of abdomen II Lily Aldrich Work Phone: Start: 12-29-2022 Plain chest X-ray II Steven Aldrich Work Phone: Start: 12-29-2022 Blood culture for ba cteria, including anaerobic screen II Lily Aldrich Work Phone: Start: 12-29-2022 SARS-CoV-2, Influenz a & RSV (PCR) II Lily Aldrich Work Phone: Start: 12-06-2022 Plain chest X-ray II Steven Aldrich Work Phone: Start: 12-06-2022 CT cervical spine wi thout contrast II Lily Aldrich Work Phone: Start: 12-06-2022 CT of head without contrast II Lily Aldrich Work Phone: Start: 10-29-2022 CT cervical spine wi thout contrast II Lily Aldrich Work Phone: Start: 10-29-2022 CT of head without contrast II Lily Aldrich Work Phone: Start: 10-29-2022 Plain chest X-ray II Steven Aldrich Work Phone: Start: 10-29-2022 Plain X-ray of left shoulder II Lily Aldrich Work Phone: Start: 05-20-2022 Colonoscopy II Lily Aldrich Work Phone: Start: 05-17-2022 Antibody screen Lily Aldrich Comment on above: Order Comment: Trans fuse now? Y Number of units to transfuse now? 1 Result Comment: PERF ORMED BY:[facility] [place], [place] [id number] MEDICAL DIRECTORRAMEZ LARSON M.D. Start: 05-17-2022 Computed tomography angiography of abdominal and/or pelvic blood vessel II Lily Aldrich Work Phone: Start: 05-17-2022 Stool Occult Blood (TRINITY) II Lily Aldrich Work Phone: Start: 05-02-2022 IR Fistulogram/TLA S tent (Left) II Lily Aldrich Work Phone: Start: 04-18-2022 Ultrasonography of arteriovenous fistula II Lily Aldrich Work Phone: Start: 02-22-2022 CT of head without contrast II Lily Aldrich Work Phone: Start: 02-22-2022 Plain chest X-ray II Steven Aldrich Work Phone: Start: 02-22-2022 Blood culture for ba cteria, including anaerobic screen II Lily Aldrich Work Phone: Start: 02-22-2022 SARS-CoV-2, Influenz a & RSV (PCR) II Lily Aldrich Work Phone: Start: 02-22-2022 Urine culture II Lily Aldrich Work Phone: Start: 01-17-2022 Ultrasonography of arteriovenous fistula II Lily Aldrich Work Phone: Start: 11-19-2021 Plain X-ray of right shoulder II Lily Aldrich Work Phone: Start: 11-19-2021 IR Fistulogram/TLA S tent (Left) II Lily Aldrich Work Phone: Start: 11-19-2021 Ultrasonography of arteriovenous fistula II Lily Aldrich Work Phone: Start: 11-17-2021 Plain chest X-ray II Steven Aldrich Work Phone: Start: 11-16-2021 Plain X-ray of right shoulder II Lily Aldrich Work Phone: Start: 11-16-2021 Ultrasonic guidance for thoracentesis II Lily Aldrich Work Phone: Start: 11-16-2021 Plain chest X-ray II Steven Aldrich Work Phone: Start: 11-08-[address] eural Cavity, Percutaneous Approach DR LILY ALDRICH Start: 11-05-[address] eural Cavity, Percutaneous Approach DR LILY ALDRICH Start: 09-20-2021 Ultrasonography of arteriovenous fistula II Lily Aldrich Work Phone: Start: 09-01-2020 Antibody screen Comment on above: Performed By: #### T SCR ####[facility], [place] [phone] Start: 03-27-2020 End: 03-27-2020 Aerobic microbial culture Lily Nasima Start: 03-27-2020 End: 03-27-2020 Anaerobic microbial culture Lily Aldrich Start: 03-27-2020 Investigation of tra nsfusion reaction Lily Nasima Start: 10-13-2019 MEASURE OF CARDIAC S AMPL \T\ PRESSURE, R HEART, PERC APPROACH EHAB A ELTAHAWY Start: 10-13-2019 MEASUREMENT OF ARTER IAL FLOW, PULMONARY, PERC APPROACH EHAB A [place] Acid fast bacilli culture II Lily Aldrich Work Phone: Acid fast bacilli culture II Lily Aldrich Work Phone: Acid fast stain method II Steven Aldrich Work Phone: Aerobic microbial culture II Lily Nasima Work Phone: Anaerobic microbial culture II Lily Aldrich Work Phone: Investigation of tra nsfusion reaction II Lily Aldrich Work Phone: Mycology culture II Lily walker Work Phone: Plan of Treatment Date Care Activity Detail Author Start: 03-07-2023 [facility] Start: 03-06-2023 Comprehensive metabolic 2000 panel - Serum or Plasma [facility] Start: 03-06-2023 [facility] Start: 03-05-2023 Physical therapy procedure [facility] Start: 03-05-2023 Referral to occupational therapist [facility] Start: 03-05-2023 End: 03-05-2023 [facility] Start: 03-05-2023 Referral to ethanol quality leader [facility] Start: 03-05-2023 Referral to neurologist [facility] Start: 03-05-2023 Referral to dental office receptionist [facility] Start: 03-05-2023 Hospital admission [facility] Start: 03-05-2023 [facility] Start: 03-05-2023 Bacteria identified in Blood by Culture [facility] Start: 01-02-2023 [facility] Start: 12-30-2022 Administration of prophylactic treatment [facility] Start: 12-30-2022 Referral to dental office receptionist [facility] Start: 12-30-2022 Hospital admission [facility] Start: 12-30-2022 Referral to ethanol quality leader [facility] Start: 12-29-2022 Plain chest X-ray XR chest 1V portable [facility] Start: 12-29-2022 XR Chest Single view [facility] Start: 12-29-2022 [facility] Start: 12-29-2022 Bacteria identified in Blood by Culture Blood Culture [facility] Start: 12-29-2022 Blood culture for bacteria, including anaerobic screen Blood Culture [facility] Start: 12-16-2022 [facility] Start: 12-13-2022 Referral to ethanol quality leader [facility] Start: 12-13-2022 Hospital admission [facility] Start: 12-13-2022 Referral to dental office receptionist [facility] Start: 12-13-2022 Performance of Urinary Filtration, Intermittent, Less than 6 Hours Per Day Performance of Urinary Filtration, Intermittent, Less than 6 Hours Per Day [facility] Start: 12-09-2022 [facility] Start: 12-07-2022 Hospital admission [facility] Start: 12-07-2022 Referral to dental office receptionist [facility] Start: 12-07-2022 Referral to ethanol quality leader [facility] Start: 10-31-2022 [facility] Start: 10-30-2022 Performance of Urinary Filtration, Intermittent, Less than 6 Hours Per Day Performance of Urinary Filtration, Intermittent, Less than 6 Hours Per Day [facility] Start: 10-30-2022 Referral to dental office receptionist [facility] Start: 10-30-2022 Blood chemistry [facility] Start: 10-30-2022 [facility] Start: 10-30-2022 Referral to dental office receptionist [facility] Start: 10-29-2022 End: 10-30-2022 [facility] Start: 10-29-2022 Physical therapy procedure [facility] Start: 10-29-2022 Referral to ethanol quality leader [facility] Start: 10-29-2022 Referral to occupational therapist [facility] Start: 10-29-2022 Referral to Senior Mechanical Development Engineer [facility] Start: 10-29-2022 Hospital admission [facility] Start: 10-29-2022 Plain chest X-ray XR chest 1V portable [facility] Start: 10-29-2022 XR Chest Single view [facility] Start: 10-29-2022 Plain X-ray of left shoulder XR shoulder LT min 2V* [facility] Start: 10-29-2022 XR Shoulder - left Views [facility] Start: 05-20-2022 [facility] Start: 05-20-2022 Physical therapy procedure [facility] Start: 05-20-2022 Referral to occupational therapist [facility] Start: 05-19-2022 [facility] Start: 05-17-2022 Referral to resident care spec [facility] Start: 05-17-2022 Hospital admission [facility] Start: 05-17-2022 Referral to ethanol quality leader [facility] Start: 05-02-2022 End: 05-02-2022 [facility] Start: 2022 Blood chemistry [facility] Start: 02-25-2022 [facility] Start: 02-23-2022 Blood chemistry [facility] Start: 02-23-2022 [facility] Start: 02-22-2022 Physical therapy procedure [facility] Start: 02-22-2022 Referral to ethanol quality leader [facility] Start: 02-22-2022 Referral to occupational therapist [facility] Start: 02-22-2022 Hospital admission [facility] Start: 02-22-2022 [facility] Start: 02-22-2022 Bacteria identified in Blood by Culture [facility] Start: 02-22-2022 Bacteria identified in Urine by Culture Urine Culture [facility] Start: 02-22-2022 Blood culture for bacteria, including anaerobic screen Blood Culture [facility] Start: 02-22-2022 Performance of Urinary Filtration, Intermittent, Less than 6 Hours Per Day Performance of Urinary Filtration, Intermittent, Less than 6 Hours Per Day [facility] Start: 11-26-2021 Blood chemistry [facility] Start: 11-26-2021 [facility] Start: 11-25-2021 Blood chemistry [facility] Start: 11-25-2021 [facility] Start: 11-24-2021 Blood chemistry [facility] Start: 11-24-2021 [facility] Start: 11-23-2021 Blood chemistry [facility] Start: 11-23-2021 [facility] Start: 11-22-2021 Blood chemistry [facility] Start: 11-22-2021 [facility] Start: 11-21-2021 Blood chemistry [facility] Start: 11-21-2021 [facility] Start: 11-20-2021 [facility] Start: 11-20-2021 Referral to home health care service [facility] Start: 11-19-2021 Consultation [facility] Start: 11-18-2021 Administration of prophylactic treatment [facility] Start: 11-17-2021 Referral to vascular surgeon [facility] Start: 11-16-2021 [facility] Start: 11-16-2021 Dilation of Left Cephalic Vein, Percutaneous Approach Dilation of Left Cephalic Vein, Percutaneous Approach [facility] Start: 11-16-2021 Drainage of Right Pleural Cavity, Percutaneous Approach Drainage of Right Pleural Cavity, Percutaneous Approach [facility] Start: 11-16-2021 Performance of Urinary Filtration, Intermittent, Less than 6 Hours Per Day Performance of Urinary Filtration, Intermittent, Less than 6 Hours Per Day [facility] Start: 11-16-2021 Restriction of Left Cephalic Vein with Intraluminal Device, Percutaneous Approach Restriction of Left Cephalic Vein with Intraluminal Device, Percutaneous Approach [facility] Start: 11-16-2021 Hospital admission [facility] Start: 11-16-2021 [facility] Start: 11-16-2021 Referral to ethanol quality leader [facility] Albumin/Globulin ratio [facility] Anion gap measurement [facility] Basophils [#/volume] in Blood by Automated count [facility] Basophils/100 leukoc ytes in Blood by Automated count [facility] Blood chemistry [facility] Eosinophils [#/volum e] in Blood [facility] Eosinophils/100 leuk ocytes in Blood by Automated count [facility] Erythrocyte distribu tion width [Ratio] by Automated count [facility] Erythrocytes [#/volu me] in Blood [facility] Fungus identified in Unspecified specimen by Culture [facility] Work Phone: Globulin [Mass/volum e] in Serum [facility] Hematocrit [Volume F raction] of Blood [facility] Hemoglobin [Mass/vol ume] in Blood [facility] Leukocytes [#/volume ] corrected for nucleated erythrocytes in Blood by Automated coun [facility] Leukocytes [#/volume ] in Blood [facility] Lymphocytes [#/volum e] in Blood by Automated count [facility] Lymphocytes/100 leuk ocytes in Blood by Automated count [facility] MCH [Entitic mass] b y Automated count [facility] MCHC [Mass/volume] b y Automated count [facility] MCV [Entitic volume] by Automated count [facility] Monocytes [#/volume] in Blood by Automated count [facility] Monocytes/100 leukoc ytes in Blood by Automated count [facility] Mycobacterium sp cailin ntified in Unspecified specimen by Organism specific culture [facility] Work Phone: Neutrophils [#/volum e] in Blood by Automated count [facility] Neutrophils/100 leuk ocytes in Blood by Automated count [facility] Nucleated erythrocyt es [Presence] in Blood by Automated count [facility] Patient Education [facility] Work Phone: Patient referral [facility] Work Phone: Platelet mean volume [Entitic volume] in Blood by Automated count [facility] Platelets [#/volume] in Blood [facility] Immunizations Immunization Date Immunization Notes Care Provider Crow nichols 05-16-2020 COVID-19 mRNA,YLV980 b2 (Pfizer) [facility] 04-24-2020 COVID-19 mRNA,OOC276 b2 (Pfizer) [facility] Payers Date Payer Category Payer Self-pay [id number] 2021 Private Health Insurance [id number] 1957 Medicare [id number] 1959 Unknown [id number] 1945 Unknown [id number] 2.16.8 40.1.318293.3.579.2.647 1945 Unknown [id number] 2.16.84 0.1.803977.3.579.2.593 1945 Unknown [id number] 2.16.84 0.1.247238.3.579.2.593 1947 Unknown [id number] 2.16.84 0.1.916564.3.579.2.593 1947 Unknown [id number] 2.16.84 0.1.388104.3.579.2.593 1947 Unknown [id number] 2.16.84 0.1.707587.3.579.2.593 1947 Unknown [id number] 2.16.84 0.1.760054.3.579.2.593 1947 Unknown [id number] 2.16.84 0.1.308364.3.579.2.593 1947 Unknown [id number] 2.16.84 0.1.638763.3.579.2.593 1947 Unknown [id number] 2.16.84 0.1.324823.3.579.2.593 1947 Unknown [id number] 2.16.84 0.1.542117.3.579.2.593 1947 Unknown [id number] 2.16.84 0.1.087338.3.579.2.593 1947 Unknown [id number] 2.16.84 0.1.108009.3.579.2.593 1947 Unknown [id number] 2.16.84 0.1.917467.3.579.2.593 1947 Unknown [id number] 2.16. 840.1.574466.3.579.2.356 1947 Unknown [id number] 2.16. 840.1.483651.3.579.2.356 1947 Unknown [id number] 2.16. 840.1.045646.3.579.2.732 1947 Unknown [id number] 2.16.84 0.1.281565.3.579.2.1259 1947 Unknown [id number] 2.16.84 0.1.882539.3.579.2.1259 1947 Unknown [id number] 2.16.840 .1.080464.3.579.2.1259 1947 Unknown [id number] 2.16.840 .1.727329.3.579.2.1259 1947 Unknown [id number] 2.16.840 .1.087070.3.579.2.1259 1947 Unknown [id number] 2.16.840 .1.207175.3.579.2.1259 1947 Unknown [id number] 2.16.8 40.1.863010.3.579.2.727 1947 Unknown [id number] 2.16.8 40.1.558724.3.579.2.727 1947 Unknown [id number] 2.16.8 40.1.897886.3.579.2.727 1947 Unknown [id number] 2.16.8 40.1.534947.3.579.2.727 1945 Unknown [id number] 2.16.8 40.1.324313.3.579.2.727 Medicare [id number] 2.1 6.840.1.182151.19 Unknown [id number] Unknown [id number] Unknown [id number] 2.16.8 40.1.726508.3.579.2.531 Unknown [id number] 2.16.8 40.1.885287.3.579.2.531 Unknown [id number] 2.16.8 40.1.630944.3.579.2.531 Unknown [id number] 2.16.8 40.1.625561.3.579.2.531 Unknown [id number] 2.16.8 40.1.326199.3.579.2.531 Unknown [id number] 2.16.8 40.1.266375.3.579.2.531 Unknown [id number] 2.16.8 40.1.070172.3.579.2.531 Unknown [id number] 2.16.8 40.1.206824.3.579.2.531 Unknown [id number] 2.16.8 40.1.415201.3.579.2.531 Unknown [id number] 2.16.8 40.1.612111.3.579.2.531 Social History Date Type Detail Facility Start: 05-16-2020 End: 03-06-2023 Tobacco smoking status NHIS Never smoked tobacco (finding) [facility] Start: 1945 Sex Assigned At Female F [facility] Sex Assigned At [facility] Tobacco smoking status No Smokin g Status Entered [facility] Medical Equipment Procedure Code Equipment Code Equipment Origin al Text Equipment Identifier Dates Insertion, catheter, dialysis, peritoneal, laparoscopic [id number] FDA Start: 11-25-2019 Fistulogram Non-neurovascula r embolization plug, metallic ()[id number] FDA Start: 11-19-2021 Pen Needle, Diab etic (Bd Ultra-Fine Lexis Pen Needle) 32 gauge x 5/32 needle Start: 11-20-2021 Pen Needle, Diab etic (Bd Ultra-Fine Lexis Pen Needle) 32 gauge x 5/32 needle Start: 11-20-2021 Pen Needle, Diab etic (Bd Ultra-Fine Lexis Pen Needle) 32 gauge x 5/32 needle Start: 11-20-2021 Pen Needle, Diab etic (Bd Ultra-Fine Lexis Pen Needle) 32 gauge x 5/32 needle Start: 11-20-2021 Pen Needle, Diab etic (Bd Ultra-Fine Lexis Pen Needle) 32 gauge x 5/32 needle Start: 11-20-2021 Pen Needle, Diab etic (Bd Ultra-Fine Lexis Pen Needle) 32 gauge x 5/32 needle Start: 11-20-2021 Pen Needle, Diab etic (Bd Ultra-Fine Lexis Pen Needle) 32 gauge x 5/32 needle Start: 11-20-2021 Pen Needle, Diab etic (Bd Ultra-Fine Lexis Pen Needle) 32 gauge x 5/32 needle Start: 11-20-2021 Pen Needle, Diab etic (Bd Ultra-Fine Lexis Pen Needle) 32 gauge x 5/32 needle Start: 11-20-2021 Pen Needle, Diab etic (Bd Ultra-Fine Lexis Pen Needle) 32 gauge x 5/32 needle Start: 11-20-2021 Pen Needle, Diab etic (Bd Ultra-Fine Lexis Pen Needle) 32 gauge x 5/32 needle Start: 11-20-2021 Pen Needle, Diab etic (Bd Ultra-Fine Lexis Pen Needle) 32 gauge x 5/32 needle Start: 11-20-2021 Pen Needle, Diab etic (Bd Ultra-Fine Lexis Pen Needle) 32 gauge x 5/32 needle Start: 11-20-2021 Pen Needle, Diab etic (Bd Ultra-Fine Lexis Pen Needle) 32 gauge x 5/32 needle Start: 11-20-2021 Pen Needle, Diab etic (Bd Ultra-Fine Lexis Pen Needle) 32 gauge x 5/32 needle Start: 11-20-2021 Pen Needle, Diab etic (Bd Ultra-Fine Lexis Pen Needle) 32 gauge x 5/32 needle Start: 11-20-2021 Pen Needle, Diab etic (Bd Ultra-Fine Lexis Pen Needle) 32 gauge x 5/32 needle Start: 11-20-2021 Pen Needle, Diab etic (Bd Ultra-Fine Lexis Pen Needle) 32 gauge x 5/32 needle Start: 11-20-2021 Pacemaker/ICD FDA Start: 01-30-2023 Pen Needle, Diab etic (Bd Ultra-Fine Lexis Pen Needle) 32 gauge x 5/32 needle Start: 11-20-2021 Goals Date Patient Goal Desired Activity /State Functional Status Date Assessment Result Facility 01-02-2023 Functional status Patient at Baseline [facility] Work Phone: 12-16-2022 Functional status Patient at Baseline [facility] Work Phone: 12-09-2022 Functional status Patient at Baseline [facility] Work Phone: 10-31-2022 Functional status Patient at Baseline [facility] Work Phone: 10-30-2022 Functional status Patient Not at Baseline [facility] Work Phone: 05-20-2022 Functional status Patient at Baseline [facility] Work Phone: 02-27-2022 Functional status Patient at Baseline 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 Toward Baseline [facility] Work Phone: Mental Status Date Assessment Result Facility 01-02-2023 Cognitive function Cognitive Sta tus Patient at Baseline [facility] Work Phone: 12-16-2022 Cognitive function Cognitive Sta tus Patient at Baseline [facility] Work Phone: 12-09-2022 Cognitive function Cognitive Sta tus Patient at Baseline [facility] Work Phone: 10-31-2022 Cognitive function Cognitive Sta tus Patient at Baseline [facility] Work Phone: 10-30-2022 Cognitive function Cognitive Sta tus Patient at Baseline [facility] Work Phone: 05-20-2022 Cognitive function Cognitive Sta tus Patient at Baseline [facility] Work Phone: 02-27-2022 Cognitive function Cognitive Sta tus Patient at Baseline [facility] Work Phone: 11-20-2021 Cognitive function Cognitive Sta tus Patient at Baseline [facility] Work Phone: Clinical Notes 09-01-2020 to 02-25-2023 Note Date & Type Note Facility 02-25-2023 Note [facility] Electrophysiology Consult Note Reason for visit: near syncope, VT s/p dual chamber ICD. Date of Telehealth Visit: 02/25/2023 The patient was notified that using 3rd alliance party telecommunication application (e.g., [employer]) is not HIPPA compliant and may carry some privacy risks. Yes The visit was conducted [id number] with the use of audio and video technology [place]. between patient and provider for a virtual visit. Verbal consent to provide and bill this service was obtained on 02/25/2023. No signature was obtained due to the COVID-19 pandemic. Patient Location: Patient Home I spent 11 minutes of total time on the day of the visit. This time was spent preparing for the visit, obtaining and reviewing any outside history/data, taking a history, performing an exam/evaluation, counseling and educating patient/family about the diagnosis and plan, performing medical decision making, referring to and communicating with other health care referrals, independently interpreting results and documenting in the EMR, and coordinating care. Please see the additional documentation in this note for specific details. 02/25/23 Feels tired. Bp at home runs at 110 systolic. She is on Toprol XL 25mg alone and not on Valsartan. Device check reveals 93% atrial pacing. No NSVT/Afib noted on check onm 02/17/23. HPI: Cinthya Wilson is a 77 y.o. year old with past medical history of Orthostatic hypotension, aortic valve stenosis, CAD s/p PCI, hypertension, ckd on HD M/W/F, hld, CHF, COPD on 3L NC, syncope. She was recently admitted to [facility] after syncopal episode and hitting her head as a result. Patient was at home clearing table after dinner where she felt sudden onset of dizziness and then just passed out. She had CT scans of the head and cervical spine which were unremarkable. [facility] ER noted multiple runs of nonsustained VT and her EKG at that time showed normal sinus rhythm first-degree AV block and PVCs. She was switched from carvedilol to metoprolol and then began to experience bradycardia; at some point she was started on amiodarone for rhythm control related to VT. She was discharged with 2-week event monitor. per [facility]: 14-day event monitor 12/09/2022 shows sinus rhythm with no VT, no PVCs were noted, it was reported there was an episode of 3-1 AV block with 3.1-second pause which was reported as asymptomatic She was seen by her primary dental office receptionist who referred her to EP. She was off amiodarone and BB at the time and still continues to be off. She has been having symptoms of lightheadedness and dizziness, no syncope but has had near syncope She is accompanied by daughter. They both states she has been having a lot of confusion and forgetfulness over the last few months. Daughter states has been getting worse and she is concerned that there could be some sort of underlying neurological deficit vs infection She then was admitted and underwent LHC and subsequently a dual chamber ICD. PMH: Past Medical History: Diagnosis Date CAD (coronary artery disease) 09/23/2021 COPD (chronic obstructive pulmonary disease) ([facility] 09/23/2021 Diastolic heart failure ([facility]) 09/23/2021 Dyspnea 09/23/2021 Edema 09/23/2021 Essential hypertension 09/23/2021 Hyperlipemia 09/23/2021 Kidney disease 09/23/2021 Orthopnea 09/23/2021 Primary malignant neoplasm ([facility]/HCC) 09/23/2021 Sleep apnea Type 1 diabetes ([facility]) 09/23/2021 PSH: Past Surgical History: Procedure Laterality Date CARDIAC CATHETERIZATION 12/07/2015 NECK SURGERY 06/03/2014 THORACENTESIS Right SH: Social Determinants of Health Tobacco Use: Low Risk (01/29/2023) Patient History Smoking Tobacco Use: Never Smokeless Tobacco Use: Never Passive Exposure: Not on file Alcohol Use: Not At Risk (01/29/2023) AUDIT-C Frequency of Alcohol Consumption: Never Average Number of Drinks: Patient does not drink Frequency of Binge Drinking: Never Financial Resource Strain: Low Risk (01/29/2023) Overall Financial Resource Strain (CARDIA) Difficulty of Paying Living Expenses: Not hard at all Food Insecurity: No Food Insecurity (01/29/2023) Hunger Vital Sign Worried About Running Out of Food in the Last Year: Never true Ran Out of Food in the Last Year: Never true Transportation Needs: No Transportation Needs (01/29/2023) PRAPARE - Transportation Lack of Transportation (Medical): No Lack of Transportation (Non-Medical): No Physical Activity: Inactive (01/29/2023) Exercise Vital Sign Days of Exercise per Week: 0 days Minutes of Exercise per Session: 0 min Stress: Stress Concern Present (01/29/2023) [employer] [place] [employer] - Occupational Stress Questionnaire Feeling of Stress : To some extent Social Connections: Socially Isolated (01/29/2023) Social Connection and Isolation Panel [NHANES] Frequency of Communication with Friends and Family: More than three times (more content not included)... [facility] 02-01-2023 Note Sent the AVS to [facility] c are. [facility] 01-31-[address] Shore [facility] ent okay to safely discharge without seeing wound care as long as prior wounds remain unchanged. If wounds have worsened in status or have changed, cannot discharge patient without wound RN assessing. [facility] 01-31-2023 Note Discharge orders huong flynn for patient. She is active with [facility]. A return referral was placed via [facility] to include clinical summary and AVS. No other OTM needs identified. [facility] 01-31-2023 Note Hospital Medicine Discharge Summary Final Discharge Diagnosis: Nonsustained V. tach Hypomagnesemia Hypokalemia Right pleural effusion History of syncope Diastolic CHF Aortic stenosis Diabetes CAD, status post PCI ESRD, on hemodialysis MWF COPD, on home oxygen 3 L Admission Diagnosis: End stage renal disease (CMS/HCC) [N18.6] Hypokalemia [E87.6] Hypomagnesemia [E83.42] Ventricular tachycardia (CMS/HCC) [I47.20] Nonsustained ventricular tachycardia (CMS/HCC) [I47.29] Type 2 diabetes mellitus without complication, with long-term current use of insulin (CMS/HCC) [E11.9, Z79.4] Hospital course: Cinthya Wilson is an 77 y.o. female who came from home with past medical history of ESRD, on hemodialysis, MWF, aortic stenosis, CAD, status post PCI, COPD, on home oxygen 3 L, anemia and history of recent syncope for what patient was on manager process for the last few weeks presented to ER by recommendation of her dental office receptionist because of runs of nonsustained V. tach on the monitor. Patient only complains of increased shortness of breath but no chest pain. She has lightheadedness. No recent falls. No nausea or vomiting. Patient states that she had the monitor in order to be evaluated for the need of pacemaker. Upon review of her records, patient was hospitalized at [facility] for syncope and at that time she also had episodes of nonsustained V. tach. Upon workup in the ER, patient's magnesium and potassium were found to be low and were replaced. Patient was admitted to the medical floor and she was seen and evaluated by cardiology. Her workup included coronary angiogram which was showing patent stent in LAD and chronic occlusion of mid RCA, cardiology recommended medical treatment for that. patient had an ICD device placed. Her carvedilol was changed to metoprolol. patient will follow-up with cardiology as an outpatient. She was discharged home with home health care in stable condition on January 31, [address] Nasima MD, Cinthya is advised to follow up with you within 1-2 weeks. Follow-up with: Cardiology Scheduled appointments: Future Appointments Date Time Provider Department Center 02/13/2023 2:30 PM [facility]INIC DEVICE CHECK HVC CARD [facility] 02/25/2023 1:40 PM Nadeem Sanchez MD CARD [facility] Your medication list START taking these medications Instructions Last Dose Given Next Dose Due metoprolol succinate XL 25 mg 24 hr tablet Commonly known as: Toprol-XL Take 1 tablet (25 mg) by mouth in the morning for 99 doses. Do not crush or chew. CONTINUE taking these medications Instructions Last Dose Given Next Dose Due aspirin 81 mg EC tablet atorvastatin 40 mg tablet Commonly known as: Lipitor busPIRone 10 mg tablet Commonly known as: Buspar calcium acetate 667 mg capsule Commonly known as: Phoslo cholecalciferol 25 MCG (1000 units) tablet Commonly known as: Vitamin D-3 citalopram 40 mg tablet Commonly known as: CeleXA furosemide 40 mg tablet Commonly known as: Lasix gabapentin 100 mg capsule Commonly known as: Neurontin HumaLOG KwikPen Insulin 100 unit/mL injection pen Generic drug: insulin lispro HYDROcodone-acetaminophen 7.5-325 mg tablet Commonly known as: [place] midodrine 5 mg tablet Commonly known as: Proamatine Take 1 tablet (5 mg) by mouth before breakfast, before lunch, and before evening meal. For low blood pressure, lightheadedness, dizziness oxyCODONE-acetaminophen 5-325 mg tablet Commonly known as: Percocet pantoprazole 40 mg EC tablet Commonly known as: ProtoNix pramipexole 0.25 mg tablet Commonly known as: Mirapex pregabalin 25 mg capsule Commonly known as: Lyrica Trelegy Ellipta 200-62.5-25 mcg blister with device Generic drug: hmqjvlwthaz-ajnmdonfc-qvybchhi valsartan 160 mg tablet Commonly known as: Diovan STOP taking these medications amiodarone 400 mg tablet Commonly known as: Pacerone carvedilol 3.125 mg tablet Commonly known as: Coreg Where to Get Your Medications These medications were sent to [id number] - [facility] [address] [id number] metoprolol succinate XL 25 mg 24 hr tablet Cinthya is allergic to benazepril, gabapentin, lisinopril, and meloxicam. [place] [facility] [place]: Stable Code Status: Full Code Diagnostic Results Hematology: Results from last 7 days Lab Units 01/31/23 0543 01/30/23 0507 01/29/233 WBC AUTO 10*3/uL 9.44 8.30 7.70 HEMOGLOBIN g/dL 10.1* 9.5* 9.2* HEMATOCRIT % 34.0* 32.5* 31.2* MCV fL 92.4 93.1 91.2 PLATELETS AUTO 10*3/uL 339 343 324 INR -- -- 1.08 Chemistry: Results from last 7 days Lab Units 01/31/23 0543 01/30/23 0507 01/29/23 2043 SODIUM mmol/L 130* 131* 133* POTASSIUM mmol/L 4.1 3.5 3.2* CHLORIDE mmol/L 93* 94* 92* CO2 mmol/L 27 28 29 BUN mg/dL 39* 29* 23 CREATININ (more content not included)... [facility] 01-31-2023 Note Occupational Therapy Cancel Note Reason: Patient off the floor at HD at this time. OT will continue to follow and will re-attempt as able. Time in: 09 Check no charge EVI Mistry/Nancy, T [facility] 01-31-2023 Note ---- Attestation signed by Saad Wade MD at 01/31/2023 12:51 PM I personally saw and examined the patient on the same date of service as resident/fellow . I discussed the findings and therapeutic plan with the resident/fellow . I agree with the documentation, except for any edits/updates below. Teaching Physician's Revisions: Patient is getting hemodialysis session today for 3 and half hours with goal to remove 2 to 3 kg fluid as tolerated. Patient is status post AICD placement ---- Nephrology Progress Note Patient : Cinthya Wilson; 77 y.o. Location: 3107/3107-01 Attending: Thomas Shore MD Admit Date: 01/29/2023 Hospital Day: 2 Reason for Consult: ESRD on HD MWF Subjective: History of present illness: Cinthya Wilson is a 77 y.o. female who came from home with past medical history of ESRD, on hemodialysis, MWF, aortic stenosis, CAD, status post PCI, COPD, on home oxygen 3 L, anemia and history of recent syncope for what patient was on manager process for the last few weeks presented to ER by recommendation of her dental office receptionist because of runs of nonsustained V. tach on the monitor. Patient only complains of increased shortness of breath but no chest pain. She has lightheadedness. No recent falls. No nausea or vomiting. Patient states that she had the monitor in order to be evaluated for the need of pacemaker. Upon review of her records, patient was hospitalized at [facility] for syncope and at that time she also had episodes of nonsustained V. tach. Upon workup in the ER, patient's magnesium and potassium were found to be low and were replaced. Patient will be seen by cardiology tomorrow and will have echo done. Her last echo was done in 2019 and showed normal EF. Interval history: 01/31/23 Patient was seen and examined at the bedside, s/p cardiac cath and ICD placement Objective: Input/Output: Intake/Output Summary (Last 24 hours) at 01/31/2023 0909 Last data filed at 01/31/2023 0400 Gross per 24 hour Intake 1484.56 ml Output 40 ml Net 1444.56 ml I/O last 3 completed shifts: In: 1621.2 (27.1 mL/kg) [P.O.:480; I.V.:1041.2 (17.4 mL/kg); IV Piggyback:100] Out: 40 (0.7 mL/kg) [Blood:40] Weight: 59.9 kg Vital signs: Temperature: Temp: 36.8 ???C (98.2 ???F) TMax: Temp (24hrs), Av.8 ???C (98.3 ???F), Min:36.6 ???C (97.9 ???F), Max:37 ???C (98.6 ???F) Respirations: Resp: 16 Pulse: Heart Rate: 63 BP: BP: 103/54 BP Range: Systolic (24hrs), Av , Min:94 , Max:141 Diastolic (24hrs), Av, Min:45, Max:59 Wt Readings from Last 3 Encounters: 01/31/23 59.9 kg (132 lb 0.9 oz) 12/26/22 60.8 kg (134 lb) 10/04/22 60.8 kg (134 lb) Physical Exam Constitutional: General: She is not in acute distress. Comments: On NC HENT: Head: Normocephalic and atraumatic. Eyes: General: No scleral icterus. Cardiovascular: Rate and Rhythm: Normal rate. Heart sounds: No gallop. Pulmonary: Breath sounds: No wheezing. Comments: Decreased BS in right lower lobe Abdominal: Tenderness: There is no abdominal tenderness. Musculoskeletal: Cervical back: Neck supple. Right lower leg: No edema. Left lower leg: No edema. Comments: Bilateral lower extremities wound dressings Skin: Coloration: Skin is not jaundiced. Psychiatric: Mood and Affect: Mood normal. Current Medications: Scheduled Meds: amiodarone, 400 mg, oral, BID aspirin, 81 mg, oral, Daily atorvastatin, 40 mg, oral, Nightly busPIRone, 10 mg, oral, BID calcium acetate, 1,334 mg, oral, TID with meals cholecalciferol, 2,000 Units, oral, Daily furosemide, 60 mg, oral, BID with meals heparin (porcine), 1,000 Units, Hemodialysis Circuit, q1h heparin (porcine), 2,000 Units, Hemodialysis Circuit, Once heparin (porcine), 5,000 Units, subcutaneous, q12h YESSENIA insulin aspart, 0-20 Units, subcutaneous, TID with meals And insulin aspart, 0-20 Units, subcutaneous, Nightly magnesium oxide, 400 mg, oral, Daily metoprolol succinate XL, 25 mg, oral, Daily Oxygen Therapy, , inhalation, Continuous pantoprazole, 40 mg, oral, Daily before breakfast pramipexole, 0.5 mg, oral, Once Daily pregabalin, 25 mg, oral, Daily valsartan, 80 mg, oral, Daily Continuous Infusions: PRN Meds: PRN medications: acetaminophen, albumin human, alum-mag hydroxide-simeth, bisacodyl, glucose OR dextrose 50 % in water (D50W), HYDROcodone-acetaminophen, HYDROcodone-acetaminophen, hydrOXYzine pamoate, lidocaine, melatonin, midodrine, midodrine Outpatient Medications: Medication Documentation Review Audit Reviewed by Ailyn Leggett RN (Registered Nurse) on 01/29/23 at 1920 Medication Order Taking? Sig Documenting Provider Last Dose Status amiodarone (Pacerone) 400 mg tablet [id number] Take 400 mg by mouth in the morning a (more content not included)... [facility] 01-31-2023 Note ---- Attestation signed by Cheli Lutz MD at 01/31/2023 3:35 PM I personally saw and examined the patient on the same date of service as resident/fellow Dr Ramirez. I discussed the findings and therapeutic plan with the resident/fellow Dr Ramirez. I agree with the documentation, except for any edits/updates below. Teaching Physician's Revisions: She will need close follow-up with our EP colleagues in the next 1 to 2 weeks for wound check and device interrogation. Decisions regarding revascularization of the right coronary artery can be made on an outpatient basis depending on her symptoms, the presence of recurrent VT +/- significant ischemia in the inferior territory on stress testing Cheli Lutz MD, MPH, FACC, [facility], [facility] Interventional Cardiology Pager Email: [email or web address] ---- Cardiology Progress Note Subjective Subjective: Cinthya Wilson is a 77 y.o. female with past medical history of CAD s/p PCI to LAD 2016, HFpEF 50-55%, aortic valve stenosis, ESRD HD MWF, COPD 3L NC, HTN, orthostatic hypotension who presents from cardiology clinic due to runs of NSVT seen on monitor. Of note, she was hospitalized at [facility] after syncopal episode last month. Note NSVT and bradycardia at her visit there. She was discontinued on her home beta madhu and event monitor at that point, started on amiodarone. After discharge, she saw her primary dental office receptionist, who recommended EP evaluation. Suggested to discontinue amiodarone given concurrent lung disease and kidney failure. On 01/29, event monitor picked up VT for greater than 3 minute stretch. Patient was completely asymptomatic at that time, reported to [facility] for evaluation. 01/31: Patient underwent dual chamber pacemaker insertion yesterday 01/30. Tolerated procedure well, site looks clean with no erythema. Slight tenderness noted. No acute events overnight, afebrile, hemodynamically stable. Objective Objective: Patient Vitals for the past 24 hrs: BP Temp Temp src Pulse Resp SpO2 Weight 01/31/23 0400 103/54 36.8 ???C (98.2 ???F) Temporal 63 16 100 % 59.9 kg (132 lb 0.9 oz) 01/31/23 0000 103/50 37 ???C (98.6 ???F) Temporal 64 18 99 % -- 01/30/23 2300 115/55 -- -- 63 17 100 % -- 01/30/232202 105/51 -- -- 68 17 100 % -- 01/30/232199 (!) 115/48 -- -- 64 18 100 % -- 01/30/232099 132/59 36.6 ???C (97.9 ???F) Temporal 65 20 100 % -- 01/30/232016 122/59 -- -- 64 17 100 % -- 01/30/232002 (!) 94/49 36.8 ???C (98.2 ???F) Temporal 64 12 100 % -- 01/30/231933 (!) 141/49 37 ???C (98.6 ???F) Temporal 60 18 100 % -- 01/30/23 1918 (!) 116/49 -- -- 60 13 100 % -- 01/30/23 1755 -- -- -- -- -- 100 % -- 01/30/23 175 (!) 130/49 -- -- 52 11 100 % -- 01/30/23 1728 (!) 103/45 -- -- 54 16 100 % -- 01/30/23 1657 (!) 119/47 -- -- 51 18 100 % -- 01/30/23 1640 -- -- -- -- -- 99 % -- 01/30/23 1639 126/55 -- -- 53 16 99 % -- 01/30/23 0846 -- -- -- -- -- 100 % -- Physical Examination: GENERAL: AOx3, in no acute distress. HEAD: Atraumatic, normocephalic. EYES: AGUILA, EOMI. NECK: No JVD present. CARDIAC: RRR. No murmur, rubs, or gallops. RESPIRATORY: CTAB, no increased effort of breathing. ABDOMEN: Soft, nontender, nondistended. EXTREMITIES: No lower extremity edema, peripheral pulses are 2+ bilaterally. NEURO: No focal deficits Relevant Lab Results Encounter Date: 01/29/23 ECG 12 lead Result Value Ventricular Rate 62 Atrial Rate 62 NC Interval 258 QRS DURATION 126 QT Interval 490 QTC CALCULATION(BAZETT) 497 P [place] 266 R-[place] -21 T Wave [place] -31 Impression Ectopic atrial rhythm Non-specific intra-ventricular conduction block Minimal voltage criteria for LVH, may be normal variant ( [place] product ) Cannot rule out Anteroseptal infarct (cited on or before 11-JUL-2010) Abnormal ECG When compared with ECG of 18-NOV-2015 03:58, Ectopic atrial rhythm has replaced Sinus rhythm QRS duration has increased T wave inversion now evident in Anterior leads Confirmed by Nadeem Sanchez ([id number]) on 01/29/2023 11:00:39 PM Lab Results Component Value Date TROPONINI 0.03 01/29/2023 Complete Echo (TTE) w/wo Imaging Agent, Strain, 3D, Bubble Study Result Date: 01/30/2023 1 1 [facility] Heart Station [address] [place] [address] [phone] (fax) Echocardiogram-[facility] Name: CINTHYA WILSON Study Date: 01/30/2023 09:26 AM B/P: 119 mmHg/52 mmHg HR: 56 bpm Date of : 1945 Location: [facility] Height: 64 in. Age: 77 year(s) Patient Room: 3107 Weight: 131 lb. Gender: Female Patient Status: InPt BSA: 1.63 m2 Indication: Nonsustained Ventricular Tachycardia Patient supine due to condition Examination: Echocardiogram (Complete), Mary (more content not included)... [facility] 01-30-2023 Note DUAL CHAMBER ICD IMP LANT & DFT TESTING PROCEDURE NOTE DATE OF PROCEDURE: 01/30/23 PERFORMING PHYSICIAN: Dr. Nadeem Sanchez INTERNAL COMMUNICATIONS INTERN: Dr. Wei Banuelos CONSENT: Patient LOCATION: EP Lab PROCEDURE PERFORMED: 1. Implantation of dual chamber ICD (Biotronik): Right sided 2. Ultrasound guided venous access 3. DFT testing INDICATIONS: 1. Sustained VT PROCEDURAL SEDATION: Versed and Fentanyl. Moderate sedation was administered by the sedation nurse under my supervision and noted in the CVL log. Intraprocedural face to face sedation time: 63min. Monitoring: Cardiac telemetry, Blood pressure, continuous pulse oxymetry. FLUOROSCOPY TIME: 4.8min/ 16mGray. EBL: 15cc SPECIMEN REMOVED: None PROCEDURAL DETAILS: Patient was placed in trendelenberg position and ultrasound was used to evaluate the patency of right axillary vein and for venous access. Right axillary venous access was obtained using modified seldinger technique using a 5 Beninese micro-puncture needle on two occasions and 0.35 wires were placed. Local infiltration of 1% Lidocaine was performed, and an incision was created in the left upper chest. Dissection was then performed using cautery down to the fascial plane above the muscle. The belly of the pectoralis was identified and with gentle blunt dissection a small pocket was created for the device above the muscle. 6 Beninese Safesheaths were placed over the wire. An active fixation Biotronik ICD lead was then delivered through the 8F sheath to the right ventricle. After confirmation of lead position on orthogonal views (SANCHES and TURKMEN) to confirm septal position, the screw was activated, and the lead was placed in the right ventricular mid cavity towards the septum. After confirmation of good sensing parameters, injury pattern and pacing thresholds, 10V pacing was done and no diaphragmatic stimulation was noted. It was then secured in the pocket using three 1-0 Silk sutures. Then an active fixation Biotronik lead was delivered through the 6Fsheath to the right atrial appendage. After confirmation of lead position on orthogonal views (SANCHES and TURKMEN), the screw was activated. Good sensing parameters, injury pattern and pacing thresholds, the lead was then tested using Lambert's maneuver. 10V pacing was done and no diaphragmatic stimulation was noted. It was then secured in the pocket using three 1-0 Silk sutures. Pocket hemostasis was secured, and it was then copiously and vigorously irrigated with antibiotic solution. The leads were attached to the generator and then wrapped under the device and the device was tacked to underlying muscle and placed in the pocket. The pocket was closed in layers: subcutaneous layer using 2-0 Vicryl; skin using 3-0 absorbable monofilament suture. Glue was applied and Tegaderm dressing was placed on top. DFT testing was performed with shock on T wave with 1J. This induced PMVT which was detected and successfully defibrillated by the device with 30J. Lead parameters were then rechecked through the device as noted below. The patient was returned to the short stay room for post procedural observation. No immediate procedural complications were noted. POST PROCEDURE EXAM: Patient was hemodynamically stable. COMPLICATIONS: None. IMPRESSION: 1. Successful dual chamber ICD with excellent pacing and sensing parameters. 2. Successful DFT testing with 30J. RECOMMENDATIONS: 1. Occlusive dressing to be removed after 2 weeks. 2. Do not wet the incision for 7 days. 3. No lifting heavy weights using arm on the same side x 3weeks 4. Do not lift elbow above the shoulder on the same side for 4-6 weeks. 5. No driving for 1 month. 6. F/u in device clinic 1 week from discharge or sooner for any concerns. 7. Doxycycline 100mg bid x 3 weeks Nadeem Sanchez MD Cardiac Electrophysiology [facility] 01-30-2023 Note Patient: Cinthya Arauz Procedure Information Date/Time: 01/30/23 1700 Procedure: Coronary angiography Location: [facility] DUMP WORKER 3 / [facility] (Cath) Providers: Moo iRvero MD Clinical information reviewed: Tobacco Allergies Meds Problems Med Hx Surg Hx OB Status Fam Hx Physical Exam Airway Mallampati: III Cardiovascular - normal exam Dental Pulmonary - normal exam Abdominal - normal exam Anesthesia Plan ASA 3 other (Conscious sedation) Anesthetic plan and risks discussed with patient. Use of blood products discussed with patient who consented to blood products. Plan discussed with attending. Additional Equipment Requests [facility] 01-30-2023 Note Clinical Nutrition A ssessment Name: Cinthya Wilson Date: 1945 Date of Visit: 01/30/23 Reason for assessment: high risk wounds Information obtained from: patient, medical record, and nursing Medical History Chief Complaint Patient presents with Shortness of Breath Pt presents to ED with c/o SOB and 2+ minutes if vtach per the [facility] FACT CHECKER at cardio clinic. Pt is being evaluated for defibrillator. 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 Past Medical History: Diagnosis Date CAD (coronary artery disease) 09/23/2021 COPD (chronic obstructive pulmonary disease) ([facility] 09/23/2021 Diastolic heart failure ([facility]) 09/23/2021 Dyspnea 09/23/2021 Edema 09/23/2021 Essential hypertension 09/23/2021 Hyperlipemia 09/23/2021 Kidney disease 09/23/2021 Orthopnea 09/23/2021 Primary malignant neoplasm [place] 09/23/2021 Sleep apnea Type 1 diabetes ([facility]) 09/23/2021 Past Surgical History: Procedure Laterality Date CARDIAC CATHETERIZATION 12/07/2015 NECK SURGERY 06/03/2014 THORACENTESIS Right Current Outpatient Medications Medication Instructions amiodarone (PACERONE) 400 mg, oral, 2 times daily aspirin 81 mg, oral, Daily atorvastatin (LIPITOR) 40 mg, oral, Nightly busPIRone (BUSPAR) 10 mg, oral, 2 times daily calcium acetate (PHOSLO) 1,334 mg, oral, 3 times daily with meals carvedilol (COREG) 3.125 mg, oral, 2 times daily with meals cholecalciferol (Vitamin D-3) 25 MCG (1000 units) tablet Every 12 hours citalopram (CELEXA) 40 mg, oral, Daily crgxdctdbkg-qdznwthvd-pafyrljf (Trelegy Ellipta) 200-62.5-25 mcg blister with device inhalation furosemide (Lasix) 40 mg tablet 1.5 tablets, oral, 2 times daily gabapentin (NEURONTIN) 100 mg, oral, 2 times daily HumaLOG KwikPen Insulin 100 unit/mL injection No dose, route, or frequency recorded. HYDROcodone-acetaminophen ([place]) 7.5-325 mg tablet 1 tablet, oral, As needed midodrine (PROAMATINE) 5 mg, oral, 3 times daily before meals, For low blood pressure, lightheadedness, dizziness oxyCODONE-acetaminophen (Percocet) 5-325 mg tablet 1 tablet, oral, Every 4 hours PRN pantoprazole (PROTONIX) 40 mg, oral, Daily before breakfast, Do not crush, chew, or split. pramipexole (MIRAPEX) 0.5 mg, oral, Once Daily pregabalin (LYRICA) 25 mg, oral, Daily valsartan (DIOVAN) 80 mg, oral, Daily Allergies Allergen Reactions Benazepril Gabapentin Other Tongue swelling, increased confusion Lisinopril Meloxicam Other due to kidney issues in past with medication Nutrition Problems: Abdominal Assessment: last BM 01/29 Cognition: A&Ox4 Appetite: good Geriatric feeding skills: Ability to feed oneself Skin Integrity: stage II sacrum. B/l heel Other: oliguria. ESRD on HD 3LO2 at home NPO, coronary angiogram per cardiology. Results from last 7 days Lab Units 01/30/23 1056 01/30/23 0718 01/30/23 0507 01/29/23 2330 01/29/23 2043 GLUCOSE mg/dL -- -- 177* -- 210* POCT GLUCOSE mg/dL 154* 139* -- 244* -- BUN mg/dL -- -- 29* -- 23 CREATININE mg/dL -- -- 3.15* -- 2.60* SODIUM mmol/L -- -- 131* -- 133* POTASSIUM mmol/L -- -- 3.5 -- 3.2* MAGNESIUM mg/dL -- -- 2.4 -- 1.7* HEMOGLOBIN g/dL -- -- 9.5* -- 9.2* WBC AUTO 10*3/uL -- -- 8.30 -- 7.70 I/O: Intake/Output Summary (Last 24 hours) at 01/30/2023 1426 Last data filed at 01/30/2023 0219 Gross per 24 hour Intake 136.67 ml Output -- Net 136.67 ml Current Medications: amiodarone, 400 mg, oral, BID aspirin, 81 mg, oral, Daily atorvastatin, 40 mg, oral, Nightly busPIRone, 10 mg, oral, BID calcium acetate, 1,334 mg, oral, TID with meals cholecalciferol, 2,000 Units, oral, Daily furosemide, 60 mg, oral, BID with meals heparin (porcine), 5,000 Units, subcutaneous, q12h YESSENIA insulin aspart, 0-20 Units, subcutaneous, TID with meals And insulin aspart, 0-20 Units, subcutaneous, Nightly magnesium oxide, 400 mg, oral, Daily Oxygen Therapy, , inhalation, Continuous pantoprazole, 40 mg, oral, Daily before breakfast pramipexole, 0.5 mg, oral, Once Daily pregabalin, 25 mg, oral, Daily valsartan, 80 mg, oral, Daily Anthropometrics: Height: 162.6 cm (5' 4 ) Weight: 59.7 kg (131 lb 9.8 oz) Body mass index is 22.59 kg/m???. Wt Readings from Last 7 Encounters: 01/30/23 59.7 kg (131 lb 9.8 oz) 12/26/22 60.8 kg (134 lb) 10/04/22 60.8 kg (134 lb) 09/09/22 61.2 kg (135 lb) 08/06/22 62.1 kg (137 lb) 01/14/22 68.9 kg (152 lb) 12/03/21 66.7 kg (147 lb) Reports weight loss 1 year ago may have been related to a hospital admission. Was sick some time ago. Reports weight has been stable around 130-134 lbs since March of this year. IBW: 54.5 kg Weight change: -13% in 12 months Severity of weight change: mild Nutrition Assessment: Needs based on: actual body weight Calorie needs: 5194-7373 kcals/day based on Equation: 25-30 kcal/kg Protein needs: 71-90 g/day based on 1.2-1.5 g/kg -ESRD on HD Fluid needs: 1490 ml/day b (more content not included)... [facility] 01-30-2023 Note Hospital Medicine Daily Progress Note - 01/30/2023 12:14 PM; Room: [facility]/3107- Admission: 01/29/2023 7:29 PM; Length of stay: 1 days THE HOSPITALIST TEAM PREFERS TO USE [employer] CHAT FOR COMMUNICATION 7AM-7PM. IF I DO NOT RESPOND WITHIN 15 MINUTES, PLEASE PAGE ME/CALL THROUGH THE FINANCIAL INSTITUTION PRESIDENT. FROM 7PM-7AM, PLEASE PAGE [phone](COVR) Code Status: Full Code Barriers to Discharge: Pending catheterization Expected Discharge Date: 1 to 2 days Discharge Destination: to be determined Overview Patient is seen for evaluation and management of NSVT. Subjective Seen and evaluated at the bedside, she reports no new symptoms. No chest pain, no shortness of breath. Physical Exam Visit Vitals BP 119/52 (BP Location: Right arm, Patient Position: Lying) Pulse 58 Temp 36.8 ???C (98.2 ???F) (Temporal) Resp 19 Intake/Output Summary (Last 24 hours) at 01/30/2023 1214 Last data filed at 01/30/2023 0219 Gross per 24 hour Intake 136.67 ml Output -- Net 136.67 ml Physical Exam Eyes: Pupils: Pupils are equal, round, and reactive to light. Cardiovascular: Rate and Rhythm: Normal rate and regular rhythm. Pulmonary: Effort: Pulmonary effort is normal. Breath sounds: Normal breath sounds. Abdominal: General: Bowel sounds are normal. Palpations: Abdomen is soft. Skin: General: Skin is warm. Neurological: Mental Status: She is alert and oriented to person, place, and time. Mental status is at baseline. Psychiatric: Mood and Affect: Mood normal. Estimated body mass index is 22.59 kg/m??? as calculated from the following: Height as of this encounter: 1.626 m (5' 4 ). Weight as of this encounter: 59.7 kg (131 lb 9.8 oz). Active Inpatient Problems Principal Problem: Ventricular tachycardia (CMS/HCC) Active Problems: Hypomagnesemia Hypokalemia Assessment and Plan Nonsustained V. tach Hypomagnesemia Hypokalemia Right pleural effusion History of syncope Diastolic CHF Aortic stenosis Diabetes CAD, status post PCI ESRD, on hemodialysis MWF COPD, on home oxygen 3 L Plan: - plan for coronary angiogram today as per cardiology - monitor and replace electrolytes. Nephrology consult for hemodialysis Will check blood sugars before meals and at bedtime and cover with ISS Patient's home medications were resumed, including home dose of amiodarone. Protonix 40 mg p.o. daily for GI prophylaxis which is what patient is taking at home EPC cuffs VTE Prophylaxis: Heparin subcutaneous Scheduled Meds amiodarone, 400 mg, oral, BID aspirin, 81 mg, oral, Daily atorvastatin, 40 mg, oral, Nightly busPIRone, 10 mg, oral, BID calcium acetate, 1,334 mg, oral, TID with meals cholecalciferol, 2,000 Units, oral, Daily furosemide, 60 mg, oral, BID with meals heparin (porcine), 5,000 Units, subcutaneous, q12h YESSENIA insulin aspart, 0-20 Units, subcutaneous, TID with meals And insulin aspart, 0-20 Units, subcutaneous, Nightly magnesium oxide, 400 mg, oral, Daily Oxygen Therapy, , inhalation, Continuous pantoprazole, 40 mg, oral, Daily before breakfast pramipexole, 0.5 mg, oral, Once Daily pregabalin, 25 mg, oral, Daily valsartan, 80 mg, oral, Daily Pertinent Investigations Hematology: Results from last 7 days Lab Units 01/30/23 0507 01/29/23 2043 WBC AUTO 10*3/uL 8.30 7.70 HEMOGLOBIN g/dL 9.5* 9.2* HEMATOCRIT % 32.5* 31.2* MCV fL 93.1 91.2 PLATELETS AUTO 10*3/uL 343 324 INR -- 1.08 Chemistry: Results from last 7 days Lab Units 01/30/23 0507 01/29/23 2043 SODIUM mmol/L 131* 133* POTASSIUM mmol/L 3.5 3.2* CHLORIDE mmol/L 94* 92* CO2 mmol/L 28 29 BUN mg/dL 29* 23 CREATININE mg/dL 3.15* 2.60* GLUCOSE mg/dL 177* 210* MAGNESIUM mg/dL 2.4 1.7* CALCIUM mg/dL 9.8 9.8 PHOSPHORUS mg/dL 3.3 -- No lab exists for component: AFIO2 , APHT , APCOT , APOT , ATCO2 , CK , ALB , IBILI Results from last 7 days Lab Units 01/30/23 1056 01/30/23 0718 01/29/23 2330 POCT GLUCOSE mg/dL 154* 139* 244* Historical Values: (Includes values prior to this admission) No results found for: PREALBUMIN , TSH , T3FREE , FREET4 , CORTISOL , FEV1 , ASU7FVS , DLCO , RVSP , HDL , LDL No results found for: [id number] , IRON , TIBC , C3 , C4 , DIVYA , CANCA , ASO , PSA , CEA , CA125 , CA199 , AFP , CA153 Imaging Complete Echo (TTE) w/wo Imaging Agent, Strain, 3D, Bubble Study 1 [facility] Heart Station [address] [place] [address] [phone] (fax) Echocardiogram-[facility] Name: CINTHYA WILSON Study Date: 01/30/2023 09:26 AM B/P: 119 mmHg/52 mmHg HR: 56 bpm Date of : 1945 Location: [facility] Height: 64 in. Age: 77 year(s) Patient Room: 3107 Weight: 131 lb. Gender: Female Patient Status: InPt BSA: 1.63 m2 Indication: Nonsustained Ventricular Tachycardia Patient supine due to condition Examination: Echocardiogram (Complete), Lumas (more content not included)... [facility] 01-30-2023 Note 01/30/23 0808 Admission Assessment Questions Verify insurance with patient Yes Do you understand medical disease or what brought you into the hospital? Yes Who is your current PCP? Lily Aldrich MD Can I schedule a follow up appointment for you at the time of discharge? No Do you understand why you are taking your current medications? No (daughter takes care of all meds for her) Are you taking your medications as prescribed? Yes Did patient provide teach back? Yes Would you like use our pharmacy iMeds to fill your new medications at the time of Discharge? Yes Does the patient have a case work aide assigned to them through their insurance? No Living Arrangement (Current/Prior to Hospitalization) Private residence;Other (Comment) (lives w/daughter. 2 story house w/bed and bath on 1st floor. 4 entry stairs with railings - currently w/[facility]) Does the patient have history of HHC or SNF? Yes ([facility] currently. Past SNF was [facility]) Assistive Device Walker;Oxygen;Grab bars;Wheelchair (shower chair) Patient's goal for discharge Home w/[facility] Was patient reminded that goal for discharge is 11am? Yes Does the patient have transportation at discharge? Yes (one of her children) Type of Residence/Post Acute Needs Private residence;C Is PT/OT appropriate? No Is PT/OT ordered? No Is SW consult appropriate? Yes Is SW consult ordered? Yes Do you understand the benefits of MyChart? Yes Were you able to send link and activate MyChart? Yes [facility] 01-30-2023 Note Hospital Medicine History and Physical 01/29/2023 11:01 PM THE HOSPITALIST TEAM PREFERS TO USE [employer] Pow[employer] CHAT FOR COMMUNICATION 7AM-7PM. IF I DO NOT RESPOND WITHIN 15 MINUTES, PLEASE PAGE ME/CALL THROUGH THE FINANCIAL INSTITUTION PRESIDENT. FROM 7PM-7AM, PLEASE PAGE [phone](COVR) Chief Complaint Chief Complaint Patient presents with Shortness of Breath Pt presents to ED with c/o SOB and 2+ minutes if vtach per the [facility] FACT CHECKER at cardio clinic. Pt is being evaluated for defibrillator. 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 History of Present Illness Cinthya Wilson is an 77 y.o. female who came from home with past medical history of ESRD, on hemodialysis, MWF, aortic stenosis, CAD, status post PCI, COPD, on home oxygen 3 L, anemia and history of recent syncope for what patient was on manager process for the last few weeks presented to ER by recommendation of her dental office receptionist because of runs of nonsustained V. tach on the monitor. Patient only complains of increased shortness of breath but no chest pain. She has lightheadedness. No recent falls. No nausea or vomiting. Patient states that she had the monitor in order to be evaluated for the need of pacemaker. Upon review of her records, patient was hospitalized at [facility] for syncope and at that time she also had episodes of nonsustained V. tach. Upon workup in the ER, patient's magnesium and potassium were found to be low and were replaced. Patient will be seen by cardiology tomorrow and will have echo done. Her last echo was done in 2019 and showed normal EF. Review of System and Physical Exam Temp: [36.7 ???C (98.1 ???F)] 36.7 ???C (98.1 ???F) Heart Rate: [58-70] 68 Resp: [17-20] 17 BP: (100-125)/(40-56) 125/53 Physical Exam Constitutional: General: She is not in acute distress. Appearance: Normal appearance. HENT: Head: Normocephalic and atraumatic. Eyes: Conjunctiva/sclera: Conjunctivae normal. Cardiovascular: Rate and Rhythm: Normal rate and regular rhythm. Heart sounds: No murmur heard. No friction rub. No gallop. Pulmonary: Effort: Pulmonary effort is normal. No respiratory distress. Breath sounds: Rales (At the bases) present. No wheezing or rhonchi. Comments: Diminished breath sounds bilaterally. Abdominal: General: Abdomen is flat. There is no distension. Tenderness: There is no abdominal tenderness. Musculoskeletal: General: No swelling or deformity. Right lower leg: Edema present. Left lower leg: Edema present. Skin: General: Skin is warm and dry. Findings: No rash. Neurological: General: No focal deficit present. Mental Status: She is alert and oriented to person, place, and time. Psychiatric: Mood and Affect: Mood normal. Behavior: Behavior normal. Thought Content: Thought content normal. Judgment: Judgment normal. Review of Systems as mentioned in HPI Problem List Patient Active Problem List Diagnosis Date Noted Orthostatic hypotension 09/09/2022 Ventricular tachycardia ([facility]) 01/29/2023 Hypomagnesemia 01/29/2023 Hypokalemia 01/29/2023 Nonsustained ventricular tachycardia ([facility]) 12/26/2022 Bilateral hearing loss 10/24/2022 Type 2 diabetes mellitus without complications ([facility]) 09/09/2022 Hypertension 07/22/2022 History of placement of stent in LAD coronary artery 07/22/2022 Primary osteoarthritis, right shoulder 07/22/2022 Restless legs 07/22/2022 Status post reverse total arthroplasty of right shoulder 07/22/2022 Unspecified rotator cuff tear or rupture of left shoulder, not specified as traumatic 07/22/2022 Closed nondisplaced fracture of fifth left metatarsal bone 07/16/2022 Osteoarthritis 01/11/2022 Sleep apnea 01/11/2022 Chronic combined systolic and diastolic heart failure ([facility]/HCC) 12/03/2021 CKD (chronic kidney disease) 12/03/2021 Nonrheumatic aortic valve stenosis 12/03/2021 Pleural effusion, not elsewhere classified 11/19/2021 Arteriovenous fistula, acquired ([facility]) 11/12/2021 Atrioventricular block, first degree 11/12/2021 Basal cell carcinoma of skin, unspecified 11/12/2021 Diverticulitis of intestine, part unspecified, without perforation or abscess without bleeding 11/12/2021 Major depressive disorder, recurrent, unspecified ([facility]) 11/12/2021 Muscle spasm of back 11/12/2021 LVH (left ventricular hypertrophy) 11/12/2021 Other specified noninfective gastroenteritis and colitis 11/12/2021 Unspecified lack of coordination 11/12/2021 Acute and chronic respiratory failure with hypoxia ([facility]) 11/09/2021 Kidney disease 09/23/2021 COPD (chronic obstructive pulmonary disease) ([facility]) 09/23/2021 CAD (coronary artery disease) 09/23/2021 Dyspnea 09/23/2021 Edema 09/23/2021 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 [facility] 01-30-2023 Note 01/29/232211 Physical Activity On average, how many days per week do you engage in moderate to strenuous exercise (like a brisk walk)? 0 days On average, how many minutes do you engage in exercise at this level? 0 min Financial Resource Strain How hard is it for you to pay for the very basics like food, housing, medical care, and heating? Not hard Housing Stability In the last 12 months, was there a time when you were not able to pay the mortgage or rent on time? N In the last 12 months, how many places have you lived? 1 (Lives at home with daughter) In the last 12 months, was there a time when you did not have a steady place to sleep or slept in a long term (including now)? N Transportation Needs In the past 12 months, has lack of transportation kept you from medical appointments or from getting medications? no (Uses [employer]; daughter and son provide transportation) In the past 12 months, has lack of transportation kept you from meetings, work, or from getting things needed for daily living? No Food Insecurity Within the past 12 months, you worried that your food would run out before you got the money to buy more. Never true Within the past 12 months, the food you bought just didn't last and you didn't have money to get more. Never true Stress Do you feel stress - tense, restless, nervous, or anxious, or unable to sleep at night because your mind is troubled all the time - these days? To some exte Social Connections In a typical week, how many times do you talk on the phone with family, friends, or neighbors? More than 3 How often do you get together with friends or relatives? Once How often do you attend scientologist or yazdanism services? Never Do you belong to any clubs or organizations such as scientologist groups, Ortho-tags, Deed or athletic groups, or school groups? No How often do you attend meetings of the clubs or organizations you belong to? Never Are you , , , , never , or living with a partner? Intimate Partner Violence Within the last year, have you been afraid of your partner or ex-partner? No Within the last year, have you been humiliated or emotionally abused in other ways by your partner or ex-partner? No Within the last year, have you been kicked, hit, slapped, or otherwise physically hurt by your partner or ex-partner? No Within the last year, have you been raped or forced to have any kind of sexual activity by your partner or ex-partner? No Alcohol Use Q1: How often do you have a drink containing alcohol? Never Q2: How many drinks containing alcohol do you have on a typical day when you are drinking? None Q3: How often do you have six or more drinks on one occasion? 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 Referral Reason Psychosocial assessment Patient Information Primary Caregiver Self Activities of Daily Living Assistive Device Walker;Oxygen Living Arrangement (Current/Prior to Hospitalization) Private residence (Lives at home with daughter) Ambulation Minimum assistance (Uses walker) Dressing Independent Feeding Independent Behavior Oriented Communication Can write;Talks;Understands speaking;Understands Bahraini;Reads Income Information Income Source Unemployed (Retired) Discharge Planning Support Systems Children Type of Residence/Post Acute Needs Private residence;[facility] Will patient need Precert for Post Acute needs? No Patient's goal for discharge Home with continued HHC PT/OT Does the patient need discharge transport arranged? No (Children will provide) Completed social work assessment and SDoH screening. Patient was awake, alert and oriented at this time. Patient reported that she lives at home with her daughter and she identified her support system as her daughter and her son. Patient endorsed being somewhat socially active and denied any regular physical activity. Patient reported that she is usually independent with ADL but sometimes needs assistance, which is provided by her daughter when needed. Patient also reported that she receives [facility] PT/OT 2x/week through [facility]. Patient endorsed the use of a walker for assistance with ambulation and endorsed the regular use of 3L O2 NC. Patient reported that she is retired from employment and she denied the need for assistance with obtaining basic needs. Patient also denied the need for assistance with transportation for medical appointments, noting that she uses [employer] for transportation and that her daughter and her son often provide transportation for her. Patient denied the need for assistance with transportation home from the hospital upon discharge, noting that her children will be providing this transportation. Patient endorsed experiencing a moderate level of stress within her everyday life. Patient denied having a current mental health provider and declined to be connected wi (more content not included)... [facility] 01-29-2023 Note Patient event monito r showing VT >3 minutes, seems to be induced by PVC Recommended to patient and daughter to report Er urgently for evaluation Patient is asymptomatic so ok to report to [facility] If symptomatic go to closest ER for eval [facility] 01-06-2023 Note Patient here for [facility] up 2 week event monitor placed at [facility] upon discharge 12/09/2022 for VT. She was admitted again to [facility] last week and amiodarone was stopped. She hasn't had syncopal episodes since last visit but still gets lightheaded. Denies chest pain. Review of Systems Constitutional: Positive for malaise/fatigue. Cardiovascular: Positive for dyspnea on exertion and near-syncope. Respiratory: Positive for cough and shortness of breath. Musculoskeletal: Positive for arthritis, back pain, joint pain and muscle weakness. Neurological: Positive for dizziness and light-headedness. All other systems reviewed and are negative. [facility] 01-06-2023 Note NH Electrophysiology Consult Note Reason for visit: near syncope, VT/PVC? HPI: Cinthya Wilson is a 77 y.o. year old with past medical history of Orthostatic hypotension, aortic valve stenosis, CAD s/p PCI, hypertension, ckd on HD M/W/F, hld, CHF, COPD on 3L NC, syncope. She was recently admitted to [facility] after syncopal episode and hitting her head as a result. Patient was at home clearing table after dinner where she felt sudden onset of dizziness and then just passed out. She had CT scans of the head and cervical spine which were unremarkable. [facility] ER noted multiple runs of nonsustained VT and her EKG at that time showed normal sinus rhythm first-degree AV block and PVCs. She was switched from carvedilol to metoprolol and then began to experience bradycardia; at some point she was started on amiodarone for rhythm control related to VT. She was discharged with 2-week event monitor. per [facility]: 14-day event monitor 12/09/2022 shows sinus rhythm with no VT, no PVCs were noted, it was reported there was an episode of 3-1 AV block with 3.1-second pause which was reported as asymptomatic She was seen last week by her primary dental office receptionist who referred her to EP. She was off amiodarone and BB at the time and still continues to be off. She has been having symptoms of lightheadedness and dizziness, no syncope but has had near syncope She is accompanied by daughter. They both states she has been having a lot of confusion and forgetfulness over the last few months. Daughter states has been getting worse and she is concerned that there could be some sort of underlying neurological deficit vs infection HR today 01/06/23 is 71 PMH: Past Medical History: Diagnosis Date CAD (coronary artery disease) 09/23/2021 COPD (chronic obstructive pulmonary disease) ([facility]) 09/23/2021 Diastolic heart failure ([facility]) 09/23/2021 Dyspnea 09/23/2021 Edema 09/23/2021 Essential hypertension 09/23/2021 Hyperlipemia 09/23/2021 Kidney disease 09/23/2021 Orthopnea 09/23/2021 Primary malignant neoplasm ([facility]) 09/23/2021 Sleep apnea Type 1 diabetes ([facility]) 09/23/2021 PSH: Past Surgical History: Procedure Laterality Date CARDIAC CATHETERIZATION 12/07/2015 NECK SURGERY 06/03/2014 THORACENTESIS Right SH: Social Determinants of Health Tobacco Use: Low Risk (10/04/2022) Patient History Smoking Tobacco Use: Never Smokeless Tobacco Use: Never Passive Exposure: Not on file Alcohol Use: Not on file Financial Resource Strain: Not on file Food Insecurity: Not on file Transportation Needs: Not on file Physical Activity: Not on file Stress: Not on file Social Connections: Not on file Intimate Partner Violence: Not on file Depression: Not on file Housing Stability: Not on file Allergies: Allergies Allergen Reactions Benazepril Lisinopril Meloxicam Other due to kidney issues in past with medication Weight: No weight available Visit Vitals Ht 1.626 m (5' 4 ) BMI 23.00 kg/m??? Smoking Status Never BSA 1.66 m??? Meds: Current Outpatient Medications on File Prior to Visit Medication Sig Dispense Refill amiodarone (Pacerone) 400 mg tablet Take 400 mg by mouth in the morning and at bedtime. aspirin 81 mg EC tablet Take 81 mg by mouth in the morning. atorvastatin (Lipitor) 40 mg tablet Take 40 mg by mouth at bedtime. busPIRone (Buspar) 10 mg tablet Take 10 mg by mouth twice a day. calcium acetate (Phoslo) 667 mg capsule Take 1,334 mg by mouth with breakfast, with lunch, and with evening meal. carvedilol (Coreg) 3.125 mg tablet Take 1 tablet (3.125 mg) by mouth with breakfast and with evening meal. (Patient not taking: Reported on 12/26/2022) 180 tablet 3 cholecalciferol (Vitamin D-3) 25 MCG (1000 units) tablet every 12 (twelve) hours. citalopram (CeleXA) 40 mg tablet Take 40 mg by mouth in the morning. kshmvawtdrf-nolhptmlz-twzdcvqv (Trelegy Ellipta) 200-62.5-25 mcg blister with device Inhale. furosemide (Lasix) 40 mg tablet Take 1.5 tablets by mouth in the morning and at bedtime. gabapentin (Neurontin) 100 mg capsule Take 100 mg by mouth twice a day. HumaLOG KwikPen Insulin 100 unit/mL injection HYDROcodone-acetaminophen ([place]) 7.5-325 mg tablet Take 1 tablet by mouth if needed. midodrine (Proamatine) 5 mg tablet Take 1 tablet (5 mg) by mouth before breakfast, before lunch, and before evening meal. For low blood pressure, lightheadedness, dizziness (Patient taking differently: Take 5 mg by mouth if needed. For low blood pressure, lightheadedness, dizziness) 270 tablet 3 oxyCODONE-acetaminophen (Percocet) 5-325 mg tablet Take 1 tablet by mouth every 4 (four) hours if needed for severe pain (8-10 pain score). pantoprazole (ProtoNix) 40 mg EC tablet Take 40 mg by mouth before breakfast. Do not crush, chew, or split. pramipexole (Mirapex) 0.25 mg tablet Take 0.5 mg by mouth once daily as directed. karma (more content not included)... [facility] 01-02-2023 Discharge summary Note Date/Time January 02, 2023 10:45am [facility] [address] [place] [address] Discharge Summary Signed Patient: Cinthya Wilson MR#: [id number] : 1945 Acct:[id number] Age/Sex: 77 / F Adm Date: 3 Loc: Room: [address] [place] [address]: Tatiana Loya MD Copies to: MD Lily Duran II, MD~ Providers Date of Discharge: 01/02/23 Discharging Provider: Tatiana Loya Primary Care Provider: Lily Aldrich Consults: 12/30/22 02:49 Consult to Nephrology Routine 12/30/22 02:59 Consult to Speech Therapy Routine 12/30/22 09:32 Consult to Cardiology Routine 01/01/23 14:44 Consult to Physical Therapy Routine OT [Consult to Occupational Therapy] Routine Discharge Diagnosis (1) ESRD on dialysis: (2) Anemia of renal disease: (3) Type 2 diabetes mellitus with diabetic chronic kidney disease: (4) Benign hypertension with end-stage renal disease: (5) Secondary hyperparathyroidism: (6) Pain in joints: Final Diagnosis Final Discharge Diagnosis: Bradytachy syndrome Summary Hospital Course Hospital course: This is a 77-year-old woman came emergency room today because she is getting very weak at home. She is also having shortness of breath. Things were gettingmuch worse today during the daytime on Friday. Reportedly she slept all day. She was having a little bit of a fever. In the emergency room she seemed to have pain everywhere throughout her body. She was very weak. She almost fell just getting out of bed to the bedside commode. She is a longstanding hemodialysis patient for end-stage renal disease. She hasa history of coronary artery disease status post stenting about 10 years ago andhas heart failure with reduced ejection fraction. She also has hypertension, she has COPD and chronic hypoxic respiratory failure chronically using 3 L oxygen by nasal cannula, she has GERD, and she has diabetes mellitus type 2 on insulin. She has had recent stays here in the hospital from December 08 through December 09when she was having a wide-complex rhythm and was evaluated by cardiology. She returned on December 13 through December 16 with bradycardia. At that time cardiology recommended amiodarone to suppress bigeminy and short nonsustained runs of ventricular tachycardia but they also recommended cessation of her beta-madhu due to bradycardia. She is not anticoagulated. She is chronically hypotensive and requires midodrine especially on dialysis days. Upon arrival up to the medical floor it was noted that her heart rate is very slow at about 43 bpm. Nursing staff on the medical floor also noticed that her tongue seems to be enlarged and somewhat swollen. Patient indicates that she had noticed that her tongue was bigger because she was biting it more often. She made an appointment to see a dentist about this in a couple weeks. She was started on buspirone 10 mg daily and gabapentin 100 mg p.o. twice daily just on December 26, so that was about 3 to 4 days ago. Also, looking at her OARRS report, she was upgraded from chronic use of hydrocodone product such as [place] 10/325 up to Percocet 5/325 enough for 4 tablets a day. Looking at her OARRS report I never saw her picking up gabapentin before. Notably her hemoglobin in the emergency room today was only 8.8. When she left the hospital on December 16 it was in its baseline of 10.4. The patient states that she has been constipated and has not moved her bowels for the last 4 days. A/P Sinus bradycardia History of Non sustained VT Seen and examined Clinically stable No complaints HR is better Keep holding Beta madhu Keep holding Amiodarone PO ON DC Recent ECHO showed EF 50-55% with mild to moderate Cardiology is following Nephrology is following DC home in stable condition Profound fatigue and weakness secondary to bradycardia Improving Swollen/enlarged tongue Thrush: Nystatin PO swish and wash Improving Anemia of chronic disease : Hemoglobin and hematocrit was CAD: Aspirin daily/cardiology was consulted Hypertension: Controlled Hyperlipidemia: Continue statin Diabetes type: Insulin sliding scale Obesity: Lifestyle modification Sleep apnea: CPAP GERD: PPI DC home Condition Condition at Discharge: Stable Status at Discharge Functional status at discharge: independent ambulation Time Spent with Patient Time spent providing/coordinating discharge services (# min): 35 Diagnostic Studies Completed and Pending Studies Pending studies at discharge: 12/29/22 22:05 Urinalysis Stat 12/29/22 22:37 Blood Culture Stat 01/03/23 05:00 CBC [Complete Blood Count Auto Diff] IN AM CMP [Comprehensive Metabolic Panel] [CHEM] IN AM Preliminary micro results at discharge 12/29/22 22:37 Blood Culture - Preliminary Blood - Right Forearm No Growth 2 Days 12/29/22 22:20 Blood Culture - Preliminary Blood - Right Antecubital No Growth 2 Days Labs on day of discharge: 01/02/23 04:13: PHA Creatinine Clear 14.33, Sodium 132 L, Potassium 3.7, Chloride 93 L, Carbon Dioxide 29.5, Anion Gap 13.2, BUN 37 H, Creatinine 2.93 H D, Est GFR (CKD-EPI) 16.172, Glucose 209 H, Calcium 9.3, Total Bilirubin 0.3, AST 18, ALT 27, Alkaline Phosphatase 170 H, Total Protein 6.3 L, Albumin 3.1 L, Globulin 3.2, Albumin/Globulin Ratio 1.0 01/02/23 04:13: Corrected WBC 10.5, Uncorrected WBC Count 10.5, RBC 3.37 L, Hgb 9.5 L, Hct 30.2 L, MCV 89.5, MCH 28.2, MCHC 31.5 L, RDW 17.2 H, Plt Count 424, MPV 7.1, Neut % (Auto) 80.8, Lymph % (Auto) 9.7, Mchenry % (Auto) 9.4, Eos % (Auto) 0.0, Baso % (Auto) 0.1, Nucleat RBC Rel Count 0.0, Neut # (Auto) 8.5 H, Lymph # (Auto) 1.0, Mchenry # (Auto) 1.0 H, Eos # (Auto) 0.0, Baso # (Auto) 0.0, Platelet Estimate Normal, Plt Morphology Comment Normal, RBC Morphology N/A, Hypochromasia Slight, Anisocytosis Slight 01/01/23 22:19: POC Glucose 482 H*, POC Glucose Comment 01/01/23 17:35: POC Glucose 380 01/01/23 14:12: POC Glucose 165 01/01/23 07:19: POC Glucose 193 Exam Physical Exam Vital Signs: Temp Pulse Resp BP Pulse Ox O2 Del Method O2 Flow Rate 98 F 62 18 131/60 96 Nasal Cannula 2 01/02/23 08:00 01/02/23 08:00 01/02/23 08:00 01/02/23 08:00 01/02/23 08:00 01/02/23 08:00 01/02/23 08:00 Narrative: General patient laying in bed in no acute distress alert awake oriented x3 HEENT PERRLA Neck supple no JVD no carotid bruit CVS S1-S2 regular rate and rhythm no murmur no gallop Chest clear to auscultation percussion Abdomen soft bowel sounds normoactive no rebound no guarding Extremities no stenosis no clubbing no edema Musculoskeletal exam normal no joint effusion Neurologic exam oriented x3 alert awake no focal left Psychiatry: Normal insight and judgment Skin: no rash or lesions Discharge Plan Discharge Plan Diet: Diabetic and Low-Sodium Instructions: Heart Failure, Adult (DC) Prescriptions: Continued multivitamin Tablet 1 tab PO DAILY dextrose [Glutose-15] 40 % Gel 0.6 g PO PRN PRN (Reason: Hypoglycemia) Qty: 112.5 0RF docusate sodium 100 mg Capsule 100 mg PO BID Qty: 60 0RF insulin aspart U-100 [Novolog FlexPen U-100 Insulin] 100 unit/mL (3 mL) Insulin Pen 1 sliding scale dose subcut TID.WM.HS Qty: 15 0RF (DME) pen needle, diabetic [BD Ultra-Fine Lexis Pen Needle] 32 gauge x 5/32 needle Qty: 100 0RF Rx Instructions: As Directed - FSBS AC/HS calcium acetate(phosphat bind) 667 mg Capsule 667 mg PO TID.WITH.MEALS 60 Days Qty: 240 0RF pantoprazole 40 mg tablet,delayed release (DR/EC) 40 mg PO DAILY Patient Comments: TAKE 1 TABLET BY MOUTH EVERY DAY diclofenac sodium [Voltaren Arthritis Pain] 1 % Gel 4 g topical QID Qty: 0 0RF furosemide 20 mg tablet 60 mg PO BID 30 Days Qty: 180 0RF Rx Instructions: Take twice a day with meals, at least 6 hours apart. Further refills or adjustments per Nephrology. pramipexole [Mirapex] 0.5 mg Tablet 0.5 mg PO QHS ondansetron 4 mg Tablet,Disintegrating 4 mg PO Q6H PRN (Reason: Nausea) insulin lispro [Humalog KwikPen Insulin] 100 unit/mL insulin pen SUBCUT Aranesp (in polysorbate) 60 mcg/mL Solution Trelegy Ellipta 100-62.5-25 mcg blister with device INHALATION atorvastatin 40 mg tablet 40 mg PO QPM Patient Comments: Rx Instructions: 1 tablet PO daily citalopram 40 mg tablet 40 mg PO DAILY aspirin 81 mg Tablet,Delayed Release (Dr/Ec) 81 mg PO DAILY Hold Instructions: resume in 2 days if no further bleeding noted. cholecalciferol (vitamin D3) [Vitamin D3] 25 mcg (1,000 unit) Tablet 25 mcg PO DAILY albuterol sulfate 0.63 mg/3 mL Solution For Nebulization 0.63 mg inhalation QID PRN (Reason: SOB) pramipexole 0.5 mg tablet 0.5 mg PO HS oxycodone-acetaminophen 5-325 mg tablet 1 tab PO Q4-6H PRN (Reason: Pain) Patient Comments: TAKE 1 TABLET BY MOUTH EVERY 6 HOURS NEEDED FOR SEVERE PAIN Trelegy Ellipta 100-62.5-25 mcg blister with device 1 ea INHALATION DAILY Patient Comments: INHALE 1 PUFF BY MOUTH EVERY DAY midodrine 5 mg tablet 5 mg PO TID PRN (Reason: Hypotension) Patient Comments: TAKE 1 TABLET BY MOUTH THREE TIMES DAILY NEEDED FOR HYPOTENSION Discontinued amiodarone 200 mg tablet 200 mg PO DAILY Patient Comments: TAKE 2 TABLETS BY MOUTH TWICE DAILY FOR 14 DAYS, THEN 1 BY MOUTH ONCE DAILY FOR 30 DAYS Follow Up: [facility] cardiology [Other] (follow-up with your primary dental office receptionist in 2-3 weeks) Documented By: Tatiana Loya MD 01/02/23 1043 Signed By: <Electronically signed by Tatiana Loya MD> 01/02/23 1045 [facility] Work Phone: 1(229) 152-597311-23-2023 Progress note Author Narinder Toussaint [facility] January 02, 2023 10:44am Note Date/Time January 02, 2023 10:40am [facility] [address] [place] [id number] Nephrology Progress Note Signed Patient: Cinthya Wilson MR#: [id number] : 1945 Acct:[id number] Age/Sex: 77 / F Adm Date: 3 Loc: Room: [address] [place] [address] Type: ADM IN Attending Dr: Tatiana Loya MD Copies to: ~ Date of Service: 01/02/2023 Subjective Subjective Narrative: Ms. 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 Patient currently gets dialysis at [facility] dialysis unit on MWF schedule. Patient had recent admission on December 07 for syncopal episode and she was found to have episodes of nonsustained V. tach with prolonged QT interval. She was evaluated by cardiology on several occasions, first carvedilol switched to metoprolol however because of bradycardia and persistent current nonsustained V. tach, she was started on amiodarone with holding metoprolol. Patient was informed that she will need a pacemaker as outpatient and she was supposed to follow-up with cardiology by the end of this month. Evaluation in ER showed bradycardia 30s to40/min. Hemoglobin was down to 8.5 g/dL compared to 10.4 on December 16. Patient is not on anticoagulation. Patient came to the ER because of persistent weakness and almost fell just getting out of the bed to the bedside commode. She stated that she has pain allover her body involving the joints and bone. Recently her narcotics was upgraded to oxycodone every 6 hours. Patient has COPD with chronic hypoxemic respiratory failure on 3 L oxygen at home. Patient is due for dialysis today hence nephrology was consulted. Interval history: Patient had hemodialysis yesterday with no events. She is up in the chair. She feels better with minimal bone aches on prednisone. Blood pressure 131/60. Pulse is stable 55 to 60/min with no episodes of significant bradycardia or V. tach's. Monitor showed normal sinus rhythm. Exam Physical Exam Vital Signs: Temp Pulse Resp BP Pulse Ox O2 Del Method O2 Flow Rate 36.6 C 62 18 131/60 96 Nasal Cannula 2 01/02/23 08:00 01/02/23 08:00 01/02/23 08:00 01/02/23 08:00 01/02/23 08:00 01/02/23 08:00 01/02/23 08:00 Narrative: Constitutional: Up in the bed, awake with no respiratory distress, she is on chronic home oxygen for COPD. HEENT: She has mild pallor. Mucous membranes are moist. Cardiovascular: RRR, normal S1-S2, no gallop or rub, No JVD Respiratory: Diminished breath sounds. No crackles or wheezes. Gastrointestinal: Soft, non tender, positive bowel sounds. No palpable organs or masses Extremities: 1+ edema Skin: No rashes or bruises Musculoskeletal: Muscle tenderness has improved. Neurology: Awake, alert, oriented ?3, No focal motor or sensory deficits. Psych: Normal mood and affect Vascular access: Left arm AV fistula with good thrill. Objective Intake and Output I&O: Intake & Output 12/30/22 12/31/22 01/01/23 01/02/23 23:59 23:59 23:59 23:59 Intake Total 1310 / 1310 1000 / 1000 2120 / 2120 200 / 200 Output Total 2503 / 2503 0 / 0 2002 Balance -1193 / -1193 1000 / 1000 117 / 117 200 / 200 Weight 63.4 kg 60.4 kg 60.2 kg 60.6 kg Meds and Allergies Meds: Active Medications Acetaminophen (Acetaminophen 325 Mg Tablet) 650 mg PO Q6HR PRN PRN Reason: Pain Scale 1 - 3 or fever Stop: 12/30/23 02:48 Albuterol (Albuterol Neb 2.5 Mg/3 Ml Vial.Neb) 0.63 mg INHALATION QID PRN PRN Reason: Shortness Of Breath Stop: 12/30/23 03:52 Atorvastatin Calcium (Atorvastatin 40 Mg Tablet) 40 mg PO QPM YESSENIA Stop: 12/30/23 20:59 Last Admin: 01/01/23 22:21 Dose: 40 mg Bisacodyl (Bisacodyl 5 Mg Tablet.Dr) 5 mg PO BID PRN PRN Reason: Constipation Stop: 12/30/23 03:22 Calcium Acetate (Calcium Acetate 667 Mg Capsule) 667 mg PO TID.WITH.MEALS [facility] Stop: 12/30/23 07:59 Last Admin: 01/02/23 08:12 Dose: 667 mg Citalopram Hydrobromide (Citalopram 40 Mg Tablet) 40 mg PO DAILY YESSENIA Stop: 12/30/23 08:59 Last Admin: 01/02/23 08:12 Dose: 40 mg Darbepoetin Theodore (Darbepoetin Theodore In Polysorbat 40 Mcg/Ml Vial) 80 mcg IV- PUSHWE [facility] Stop: 01/01/24 08:59 Last Admin: 01/01/23 09:41 Dose: 80 mcg Dextrose (Dextrose 50% In Water 25 Gm/50 Ml Syringe) 0 gm IV-PUSH PRN PRN PRN Reason: Hypoglycemia Stop: 12/30/23 03:22 Diclofenac Sodium (Diclofenac Sodium 1% Gel 100 Gm Tube) 4 gm TOPICAL QID YESSENIA Stop: 12/30/23 08:59 Last Admin: 01/02/23 08:13 Dose: 4 gm Docusate Sodium (Docusate 100 Mg Capsule) 100 mg PO BID [facility] Stop: 12/30/23 08:59 Last Admin: 01/02/23 08:13 Dose: 100 mg Ferric Sodium Gluconate Complex (Sodium Ferric Gluconat/Sucrose 62.5 Mg/5 Ml Vial) 125 mg IV-PUSH Mo@0900 [facility] Stop: 12/30/23 08:59 Last Admin: 12/30/22 10:03 Dose: 125 mg Furosemide (Furosemide 20 Mg Tablet) 60 mg PO BID@0800,1700 [facility] Stop: 12/30/23 08:59 Last Admin: 01/02/23 08:12 Dose: 60 mg Glucose (Dextrose 40% Gel 15 Gm Tube) 0.6 gm PO PRN PRN PRN Reason: Hypoglycemia Stop: 12/30/23 03:21 Glucose (Dextrose 40% Gel 15 Gm Tube) 0 gm PO PRN PRN PRN Reason: Hypoglycemia Stop: 12/30/23 03:22 Heparin Sodium (Porcine) (Heparin 10,000 Unit/10 Ml Vial) 2,000 unit IV PRN PRN PRN Reason: Dialysis Stop: 12/30/23 08:28 Last Admin: 01/01/23 09:41 Dose: 2,000 unit Heparin Sodium (Porcine) (Heparin 10,000 Unit/10 Ml Vial) 1,000 unit IV PRN PRN PRN Reason: Dialysis Stop: 12/30/23 08:28 Last Admin: 01/01/23 09:42 Dose: 1,000 unit Sodium Chloride (0.9% Sodium Chloride 1,000 Ml) 1,000 mls @ 0 mls/hr MISCELLANE.Q0M PRN PRN Reason: Dialysis Stop: 12/30/23 08:28 Last Infusion: 01/01/23 11:44 Dose: Infused Insulin Aspart (Insulin Aspart 300 Units/3 Ml Insuln.Pen) 0 units SUBCUT TID.WM.HS [facility]; Protocol Stop: 12/30/23 07:59 Last Admin: 01/02/23 08:14 Dose: 3 units Midodrine (Midodrine 5 Mg Tablet) 5 mg PO TID.7A.12P.5P PRN PRN Reason: Hypotension Stop: 12/30/23 03:21 Multivitamins (Multivitamin 1 Tab Tablet) 1 tab PO DAILY [facility] Stop: 12/30/23 08:59 Last Admin: 01/02/23 08:13 Dose: 1 tab Nystatin (Nystatin Susp 500,000 Unit/5 Ml Udc) 500,000 unit PO QID YESSENIA Stop: 12/31/23 13:59 Last Admin: 01/02/23 08:13 Dose: 500,000 unit Oxycodone/Acetaminophen (Oxycodone/Acetaminophen 5-325 Mg Tablet) 1 tab PO [id number] PRN Reason: Pain Last Admin: 01/01/23 14:19 Dose: 1 tab Pantoprazole Sodium (Pantoprazole 40 Mg Tablet.Dr) 40 mg PO DAILY [facility] Stop: 12/30/23 08:59 Last Admin: 01/02/23 08:13 Dose: 40 mg Polyethylene Glycol (Polyethylene Glycol 3350 17 Gm Powd.Pack) 17 gm PO BID YESSENIA Stop: 12/31/23 08:59 Last Admin: 01/02/23 08:13 Dose: Not Given Pramipexole Dihydrochloride (Pramipexole 0.5 Mg Tablet) 0.5 mg PO QHS YESSENIA Stop: 12/30/23 21:59 Last Admin: 01/01/23 22:21 Dose: 0.5 mg Prednisone (Prednisone 20 Mg Tablet) 40 mg PO DAILY YESSENIA Stop: 12/30/23 13:29 Last Admin: 01/02/23 08:12 Dose: 40 mg Saliva Substitute (Saliva Stimulant Agents Comb.3 44.3 Ml [place]) 0 ml MUCOUS MEM PRN PRN PRN Reason: Dry Mouth Stop: 12/30/23 02:58 Sennosides (Sennosides 8.6 Mg Tablet) 2 tab PO QHS YESSENIA Stop: 12/30/23 21:59 Last Admin: 01/01/23 22:21 Dose: 2 tab Sodium Chloride (Sodium Chloride 0.9 % 10 Ml Syringe) 0 ml IV-PUSH PRN PRN PRN Reason: Flush Stop: 12/29/23 22:02 Last Admin: 12/30/22 10:03 Dose: 10 ml Sodium Chloride (Sodium Chloride 0.9 % 10 Ml Syringe) 0 ml IV-PUSH QSHIFT YESSENIA Stop: 12/30/23 05:59 Last Admin: 01/02/23 08:14 Dose: Not Given Sodium Chloride (Sodium Chloride 0.9 % 10 Ml Syringe) 0 ml IV-PUSH PRN PRN PRN Reason: Flush Stop: 12/30/23 08:28 Last Admin: 01/01/23 09:41 Dose: 10 ml Vitamin D (Cholecalciferol 25 Mcg (1,000 Units) Tablet) 25 mcg PO DAILY YESSENIA Stop: 12/30/23 08:59 Last Admin: 01/02/23 08:13 Dose: 25 mcg Allergies lisinopril Allergy (Verified 12/06/22 18:31) Cough Results Labs 01/02/23 04:13 01/02/23 04:13 Labs: 01/02/23 04:13 BUN 37 H Creatinine 2.93 H D Albumin 3.1 L Radiology Impressions Impressions - last 24 hours: Any impression(s) listed above is documentation that was entered by the reading physician into a diagnostic report(s) for Cinthya Wilson. I have reviewed the report(s) and am incorporating any findings in the treatment plan of this patient where applicable. 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 She gets dialysis admitted for dialysis unit on MWF schedule. Patient had PD for short time 2019 for DAVID on top of CKD and cardiorenal syndrome however renal function did recover. (2) Anemia of renal disease: Assessment/Problem Details: Hemoglobin did drop with no obvious bleeding. She has adequate iron stores however transferrin saturation below 20%. (3) Type 2 diabetes mellitus with diabetic chronic kidney disease: Assessment/Problem Details: She has insulin-dependent type 2 diabetes mellitus. (4) Benign hypertension with end-stage renal disease: Assessment/Problem Details: Blood pressure did improve on dialysis and possibly progression of underlying CAD/CHF. He is appears to be a euvolemic however respiratory rate 30 and she has elevated BNP that seems to be chronic.. She occasionally takes midodrine with dialysis (5) Secondary hyperparathyroidism: Assessment/Problem Details: She has a secondary hyperparathyroidism due to the ESRD and hyperphosphatemia. Currently take calcium acetate at home. (6) Pain in joints: Assessment/Problem Details: Patient has generalized bone and joints pain. She is currently on oxycodone with intermittent confusion. Patient has a history of polymyalgia and she has aprevious back surgery. Plan * Patient had full hemodialysis yesterday. She is clinically stable and next hemodialysis will be tomorrow per her chronic orders if she still in-house. * Patient on Aranesp with hemodialysis weekly for anemia. Aranesp was increased to 80 mcg weekly. Hemoglobin did improve up to 9.5 g/dL patient was started on sodium ferric gluconate once a week because of low iron. * All medications reviewed. Amiodarone was stopped. I did check with her dental office receptionist and no plan to be started since she has been on high-dose before admission and still active issues are loaded with amiodarone till she is evaluated by EP next week to see if pacemaker is needed Patient has been in sinus rhythm with heart rate more than 50s over the last 48 hours. Blood pressure stable. She can be discharged from renal point Documented By: Narinder Toussaint MD 01/02/23 1037 Signed By: <Electronically signed by MD Narinder Toussaint> 01/02/23 1049 [facility] Work Phone: 1(221) 754-815611-22-2023 Progress note Author Narinder Toussaint [facility] January 01, 2023 1:18pm Note Date/Time January 01, 2023 1:18pm [facility] [address] [place] [address] Nephrology Progress Note Signed Patient: Cinthya Wilson MR#: [id number] : 1945 Acct:[id number] Age/Sex: 77 / F Adm Date: 3 Loc: Room: [address] [place] [address] Type: ADM IN Attending Dr: Tatiana Loya MD Copies to: ~ Date of Service: 01/01/2023 Subjective Subjective Narrative: Ms. 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 Patient currently gets dialysis at [facility] dialysis unit on MWF schedule. Patient had recent admission on December 07 for syncopal episode and she was found to have episodes of nonsustained V. tach with prolonged QT interval. She was evaluated by cardiology on several occasions, first carvedilol switched to metoprolol however because of bradycardia and persistent current nonsustained V. tach, she was started on amiodarone with holding metoprolol. Patient was informed that she will need a pacemaker as outpatient and she was supposed to follow-up with cardiology by the end of this month. Evaluation in ER showed bradycardia 30s to40/min. Hemoglobin was down to 8.5 g/dL compared to 10.4 on December 16. Patient is not on anticoagulation. Patient came to the ER because of persistent weakness and almost fell just getting out of the bed to the bedside commode. She stated that she has pain allover her body involving the joints and bone. Recently her narcotics was upgraded to oxycodone every 6 hours. Patient has COPD with chronic hypoxemic respiratory failure on 3 L oxygen at home. Patient is due for dialysis today hence nephrology was consulted. Interval history: Patient is being seen and examined on hemodialysis. Overall she is doing better. Heart rate stabilized at 50s per minute with no more episodes of bradycardia. Blood pressure 126/53. No V. tach's. Amiodarone was stopped by cardiology because of bradycardia. Plan to try mexiletine if developed V. tach again. Cardiac event monitor was reviewed by Dr. Pizano. Patient had 5 tracing was sent for review all demonstrate normal sinus rhythm with normal heart rate however one of the strips demonstrate high-grade AV blockwith a 3-1 AV conduction and 3.1-second pause this was not asymptomatic. Bone aches has improved with prednisone that is going to be decreased because ofhyperglycemia. Exam Physical Exam Vital Signs: Temp Pulse Resp BP Pulse Ox O2 Del Method O2 Flow Rate 36.4 C 60 18 126/53 L 100 Nasal Cannula 2 01/01/23 09:15 01/01/23 13:00 01/01/23 09:15 01/01/23 13:00 01/01/23 09:15 01/01/23 09:15 01/01/23 09:15 Narrative: Constitutional: Up in the bed, awake with no respiratory distress, she is on chronic home oxygen for COPD. HEENT: She has mild pallor. Mucous membranes are moist. Cardiovascular: RRR, normal S1-S2, no gallop or rub, No JVD Respiratory: Diminished breath sounds. No crackles or wheezes. Gastrointestinal: Soft, non tender, positive bowel sounds. No palpable organs or masses Extremities: 1+ edema Skin: No rashes or bruises Musculoskeletal: Muscle tenderness has improved. Neurology: Awake, alert, oriented ?3, No focal motor or sensory deficits. Psych: Normal mood and affect Vascular access: Left arm AV fistula with good thrill. Objective Intake and Output I&O: Intake & Output 12/29/22 12/30/22 12/31/22 01/01/23 23:59 23:59 23:59 23:59 Intake Total 1310 / 1310 1000 / 1000 1300 / 1300 Output Total 2503 / 2503 0 / 0 0 / 0 Balance -1193 / -1193 1000 / 1000 1300 / 1300 Weight 63.3 kg 63.4 kg 60.4 kg 60.2 kg Meds and Allergies Meds: Active Medications Acetaminophen (Acetaminophen 325 Mg Tablet) 650 mg PO Q6HR PRN PRN Reason: Pain Scale 1 - 3 or fever Stop: 12/30/23 02:48 Albuterol (Albuterol Neb 2.5 Mg/3 Ml Vial.Neb) 0.63 mg INHALATION QID PRN PRN Reason: Shortness Of Breath Stop: 12/30/23 03:52 Atorvastatin Calcium (Atorvastatin 40 Mg Tablet) 40 mg PO QPM YESSENIA Stop: 12/30/23 20:59 Last Admin: 12/31/22 21:47 Dose: 40 mg Bisacodyl (Bisacodyl 5 Mg Tablet.Dr) 5 mg PO BID PRN PRN Reason: Constipation Stop: 12/30/23 03:22 Calcium Acetate (Calcium Acetate 667 Mg Capsule) 667 mg PO TID.WITH.MEALS YESSENIA Stop: 12/30/23 07:59 Last Admin: 01/01/23 08:26 Dose: 667 mg Citalopram Hydrobromide (Citalopram 40 Mg Tablet) 40 mg PO DAILY YESSENIA Stop: 12/30/23 08:59 Last Admin: 01/01/23 08:26 Dose: 40 mg Darbepoetin Theodore (Darbepoetin Theodore In Polysorbat 40 Mcg/Ml Vial) 80 mcg IV- PUSHWE YESSENIA Stop: 01/01/24 08:59 Last Admin: 01/01/23 09:41 Dose: 80 mcg Dextrose (Dextrose 50% In Water 25 Gm/50 Ml Syringe) 0 gm IV-PUSH PRN PRN PRN Reason: Hypoglycemia Stop: 12/30/23 03:22 Diclofenac Sodium (Diclofenac Sodium 1% Gel 100 Gm Tube) 4 gm TOPICAL QID YESSENIA Stop: 12/30/23 08:59 Last Admin: 01/01/23 08:27 Dose: 4 gm Docusate Sodium (Docusate 100 Mg Capsule) 100 mg PO BID YESSENIA Stop: 12/30/23 08:59 Last Admin: 01/01/23 08:26 Dose: 100 mg Ferric Sodium Gluconate Complex (Sodium Ferric Gluconat/Sucrose 62.5 Mg/5 Ml Vial) 125 mg IV-PUSH Mo@0900 YESSENIA Stop: 12/30/23 08:59 Last Admin: 12/30/22 10:03 Dose: 125 mg Furosemide (Furosemide 20 Mg Tablet) 60 mg PO BID@0800,1700 YESSENIA Stop: 12/30/23 08:59 Last Admin: 01/01/23 08:26 Dose: 60 mg Glucose (Dextrose 40% Gel 15 Gm Tube) 0.6 gm PO PRN PRN PRN Reason: Hypoglycemia Stop: 12/30/23 03:21 Glucose (Dextrose 40% Gel 15 Gm Tube) 0 gm PO PRN PRN PRN Reason: Hypoglycemia Stop: 12/30/23 03:22 Heparin Sodium (Porcine) (Heparin 10,000 Unit/10 Ml Vial) 2,000 unit IV PRN PRN PRN Reason: Dialysis Stop: 12/30/23 08:28 Last Admin: 01/01/23 09:41 Dose: 2,000 unit Heparin Sodium (Porcine) (Heparin 10,000 Unit/10 Ml Vial) 1,000 unit IV PRN PRN PRN Reason: Dialysis Stop: 12/30/23 08:28 Last Admin: 01/01/23 09:42 Dose: 1,000 unit Sodium Chloride (0.9% Sodium Chloride 1,000 Ml) 1,000 mls @ 0 mls/hr MISCELLANE.Q0M PRN PRN Reason: Dialysis Stop: 12/30/23 08:28 Last Infusion: 01/01/23 11:44 Dose: Infused Insulin Aspart (Insulin Aspart 300 Units/3 Ml Insuln.Pen) 0 units SUBCUT TID.WM.HS [facility]; Protocol Stop: 12/30/23 07:59 Last Admin: 01/01/23 08:27 Dose: 2 units Midodrine (Midodrine 5 Mg Tablet) 5 mg PO TID.7A.12P.5P PRN PRN Reason: Hypotension Stop: 12/30/23 03:21 Multivitamins (Multivitamin 1 Tab Tablet) 1 tab PO DAILY [facility] Stop: 12/30/23 08:59 Last Admin: 01/01/23 08:26 Dose: 1 tab Nystatin (Nystatin Susp 500,000 Unit/5 Ml Udc) 500,000 unit PO QID YESSENIA Stop: 12/31/23 13:59 Last Admin: 01/01/23 08:25 Dose: 500,000 unit Oxycodone/Acetaminophen (Oxycodone/Acetaminophen 5-325 Mg Tablet) 1 tab PO [id number] PRN Reason: Pain Last Admin: 01/01/23 08:25 Dose: 1 tab Pantoprazole Sodium (Pantoprazole 40 Mg Tablet.Dr) 40 mg PO DAILY [facility] Stop: 12/30/23 08:59 Last Admin: 01/01/23 08:26 Dose: 40 mg Polyethylene Glycol (Polyethylene Glycol 3350 17 Gm Powd.Pack) 17 gm PO BID [facility] Stop: 12/31/23 08:59 Last Admin: 01/01/23 08:27 Dose: Not Given Pramipexole Dihydrochloride (Pramipexole 0.5 Mg Tablet) 0.5 mg PO QHS YESSENIA Stop: 12/30/23 21:59 Last Admin: 12/31/22 21:47 Dose: 0.5 mg Prednisone (Prednisone 20 Mg Tablet) 40 mg PO DAILY YESSENIA Stop: 12/30/23 13:29 Last Admin: 01/01/23 08:26 Dose: 40 mg Saliva Substitute (Saliva Stimulant Agents Comb.3 44.3 Ml [place]) 0 ml MUCOUS MEM PRN PRN PRN Reason: Dry Mouth Stop: 12/30/23 02:58 Sennosides (Sennosides 8.6 Mg Tablet) 2 tab PO QHS YESSENIA Stop: 12/30/23 21:59 Last Admin: 12/31/22 21:48 Dose: 2 tab Sodium Chloride (Sodium Chloride 0.9 % 10 Ml Syringe) 0 ml IV-PUSH PRN PRN PRN Reason: Flush Stop: 12/29/23 22:02 Last Admin: 12/30/22 10:03 Dose: 10 ml Sodium Chloride (Sodium Chloride 0.9 % 10 Ml Syringe) 0 ml IV-PUSH QSHIFT YESSENIA Stop: 12/30/23 05:59 Last Admin: 01/01/23 06:01 Dose: 10 ml Sodium Chloride (Sodium Chloride 0.9 % 10 Ml Syringe) 0 ml IV-PUSH PRN PRN PRN Reason: Flush Stop: 12/30/23 08:28 Last Admin: 01/01/23 09:41 Dose: 10 ml Vitamin D (Cholecalciferol 25 Mcg (1,000 Units) Tablet) 25 mcg PO DAILY YESSENIA Stop: 12/30/23 08:59 Last Admin: 01/01/23 08:26 Dose: 25 mcg Allergies lisinopril Allergy (Verified 12/06/22 18:31) Cough Results Labs 01/01/23 04:21 01/01/23 04:21 Labs: 01/01/23 04:21 BUN 57 H Creatinine 4.45 H D Albumin 3.2 L Radiology Impressions Impressions - last 24 hours: Any impression(s) listed above is documentation that was entered by the reading physician into a diagnostic report(s) for Cinthya Wilson. I have reviewed the report(s) and am incorporating any findings in the treatment plan of this patient where applicable. 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 She gets dialysis admitted for dialysis unit on MWF schedule. Patient had PD for short time 2019 for DAVID on top of CKD and cardiorenal syndrome however renal function did recover. (2) Anemia of renal disease: Assessment/Problem Details: Hemoglobin did drop with no obvious bleeding. She has adequate iron stores however transferrin saturation below 20%. (3) Type 2 diabetes mellitus with diabetic chronic kidney disease: Assessment/Problem Details: She has insulin-dependent type 2 diabetes mellitus. (4) Benign hypertension with end-stage renal disease: Assessment/Problem Details: Blood pressure did improve on dialysis and possibly progression of underlying CAD/CHF. He is appears to be a euvolemic however respiratory rate 30 and she has elevated BNP that seems to be chronic.. She occasionally takes midodrine with dialysis (5) Secondary hyperparathyroidism: Assessment/Problem Details: She has a secondary hyperparathyroidism due to the ESRD and hyperphosphatemia. Currently take calcium acetate at home. (6) Pain in joints: Assessment/Problem Details: Patient has generalized bone and joints pain. She is currently on oxycodone with intermittent confusion. Patient has a history of polymyalgia and she has aprevious back surgery. Plan * Hemodialysis today for 4 hours, 2K bath. 1.2 L ultrafiltration as tolerated. * Patient on Aranesp with hemodialysis weekly for anemia. Aranesp was increased to 80 mcg weekly. Hemoglobin did improve up to 9.8 g/dL patient was started on sodium ferric gluconate once a week because of low iron. * All medications reviewed. * Monitor daily intake and output and renal panel. We will adjust medications and dialysis prescriptions accordingly. Patient has been in sinus rhythm with heart rate more than 50s over the last 48 hours. Blood pressure stable. She can be discharged from the ICU if it is okaywith cardiology and primary team. Documented By: Narinder Toussaint MD 01/01/23 0207 Signed By: <Electronically signed by MD Narinder Toussaint> 01/01/23 2150 [facility] Work Phone: 1(970) 587-540211-22-2023 Progress note Author Donal Farrar [facility] January 01, 2023 11:33am Note Date/Time January 01, 2023 11:28am [facility] [address] [place] [address] Cardiology Progress Note Signed Patient: Cinthya Wilson MR#: [id number] : 1945 Acct:[id number] Age/Sex: 77 / F Adm Date: 3 Loc: Room: [address] [place] [address] Type: ADM IN Attending Dr: Tatiana Loya MD Copies to: ~ Date of Service: 01/01/2023 Subjective Principal diagnosis: NSVT, sinus bradycardia on negative chronotropic therapy Interval history: Ms. Wilson is a 77 year old female with PMH significant for CAD status post PCI x1 about 10 years ago in [place], ESRD on HD, hypertension, hyperlipidemia, CHF, COPD on 3 L nasal cannula who has had 2 recent admissions for syncope and nonsustained VT. During the last visit she was discharged home on amiodarone load for VT and with a 30-day event monitor. She presents again with severe weakness and lethargy associated with shortness of breath. She was found to be febrile in the ED with temperature 100.6. She was also noted to be bradycardic in the 40s. EKG showed sinus bradycardia with first- degree AV block. Labs also significant for hemoglobin of 8.8. Blood cultures were drawn. Amiodarone was held due to bradycardia. Patient reports taking amiodarone 400 mg twice daily for 2 weeks and was down tothe 200 mg daily dose. She denies palpitations or syncope prior to presentation. She has completed her event monitor and she states that the monitor is physically at home. Interim evaluation 01/01/2023: No acute events overnight. Patient reports feeling significantly better than on admission. Heart rate remains in the 50s. On evaluation patient is in the midst of hemodialysis. No hemodynamic aberrancies. No new complaints this morning. Exam Physical Exam Vital Signs: Temp Pulse Resp BP Pulse Ox O2 Del Method O2 Flow Rate 97.6 F 50 L 18 111/47 L 100 Nasal Cannula 2 01/01/23 09:15 01/01/23 11:00 01/01/23 09:15 01/01/23 11:00 01/01/23 09:15 01/01/23 09:15 01/01/23 09:15 Resp Effort & Inspection: normal respiratory effort Auscultation: clear to auscultation bilaterally Cardio Jugular venous pressure: no JVD Rate: bradycardic Heart Sounds: S1 normal, S2 normal, gallop S4 gallop and murmur systolic early, II/, with radiation to the carotids and at the right sternal border Extrem General: no clubbing, cyanosis or edema Psych Insight: insight good Judgment: judgment good Objective Labs 01/01/23 04:21 01/01/23 04:21 Labs: Laboratory Results - last 24 hr 12/31/22 12/31/22 12/31/22 11:51 16:37 21:45 Corrected WBC Uncorrected WBC Count RBC Hgb Hct MCV MCH MCHC RDW Plt Count MPV Neut % (Auto) Lymph % (Auto) Mchenry % (Auto) Eos % (Auto) Baso % (Auto) Nucleat RBC Rel Count Neut # (Auto) Lymph # (Auto) Mchenry # (Auto) Eos # (Auto) Baso # (Auto) PHA Creatinine Clear Sodium Potassium Chloride Carbon Dioxide Anion Gap BUN Creatinine Est GFR (CKD-EPI) Glucose POC Glucose 246 397 406 H* POC Glucose Comment Calcium Total Bilirubin AST ALT Alkaline Phosphatase Total Protein Albumin Globulin Albumin/Globulin Ratio 01/01/23 01/01/23 04:21 04:21 Corrected WBC 10.1 Uncorrected WBC Count 10.1 RBC 3.53 L Hgb 9.8 L Hct 31.5 L MCV 89.1 MCH 27.8 MCHC 31.2 L RDW 17.3 H Plt Count 443 MPV 7.5 Neut % (Auto) 87.5 Lymph % (Auto) 6.5 Mchenry % (Auto) 5.9 Eos % (Auto) 0.0 Baso % (Auto) 0.1 Nucleat RBC Rel Count 0.0 Neut # (Auto) 8.8 H Lymph # (Auto) 0.7 L Mchenry # (Auto) 0.6 Eos # (Auto) 0.0 Baso # (Auto) 0.0 PHA Creatinine Clear 9.43 Sodium 129 L Potassium 4.0 Chloride 91 L Carbon Dioxide 26.4 Anion Gap 15.6 H BUN 57 H Creatinine 4.45 H D Est GFR (CKD-EPI) 9.794 Glucose 227 H POC Glucose POC Glucose Comment Calcium 9.8 Total Bilirubin 0.3 AST 27 ALT 33 Alkaline Phosphatase 167 H Total Protein 6.8 Albumin 3.2 L Globulin 3.6 Albumin/Globulin Ratio 0.9 Imaging and cardiology Echo: Additional comments: [facility] [place] [address] [id number] Echocardiogram Signed Patient: Cinthya Wilson : 1945 Age/Sex: 76 / F ADM Date: 02/22/22 Interpretation Summary This was a 2D imaging study with no Doppler imaging The left ventricular size and thickness are normal. There is mild global hypokinesis of the left ventricle. The LV ejection fraction is 45 %. The left atrium appears mildly dilated. Procedure/Quality: A two-dimensional transthoracic echocardiogram was performed. This was a 2D imaging study with no Doppler imaging. Left Ventricle: The left ventricular size and thickness are normal. The LV ejection fraction is 45 %. There is mild global hypokinesis of the left ventricle. Left Atrium: The left atrium appears mildly dilated. The atrial septum appears normal. Right Atrium: The right atrium appears normal in size. Right Ventricle: The right ventricular size, thickness and function are normal. Aortic Valve: The aortic valve is mildly sclerotic. Mitral Valve: The mitral valve is mildly sclerotic. Tricuspid Valve: The tricuspid valve is normal. Pulmonic Valve: The pulmonic valve is not well seen, but is grossly normal. Arteries: The aortic root is normal size. Pericardium/Pleura: No pericardial effusion seen. There is no pleural effusion. IVC/Hepatic Viens: The IVC is normal in size with an inspiratory collapse of greater then 50%, suggesting normal right atrial pressure. Miscellaneous: No thrombus, vegetation or mass is seen. Measurements with Normals IVSd: 1.2 cm (0.7-1.1 cm)LVIDd: 5.5 cm (3.7-5.4 cm) LVPWd: 1.0 cm (0.7-1.1 cm)LVIDs: 4.2 cm (2.3-3.6 cm) LA dimension: 4.4 cm(2.3-4.0 cm)Ao root diam: 2.8 cm(2.0-3.6 cm) Doppler with Normals RVSP(TR): 23.6 mmHg(18-35mmHg) MMode/2D Measurements & Calculations RVDd: 3.5 cm FS: 24.3 % Ao root area: 6.2 [id number] ap4: 8.9 cm EDV(Teich): EDV(MOD-sp4): 149.3 ml 107.0 ml ESV(Teich): LVLs ap4: 7.9 cm 78.0 ml ESV(MOD-sp4): EF(Teich): 47.8 % 65.9 ml EF(MOD-sp4): 38.4 % __ SV(MOD-sp4): LAV(MOD-sp4): LA A2 area: 26.2 cm2 41.1 ml 67.8 ml LAV(MOD-sp2): LA A4 area: 24.0 cm2 87.7 ml LA length (vol): 6.7 cm LA vol: 79.7 ml LA vol index: 43.6 ml/m2 Doppler Measurements & Calculations TV max P.0 mmHg TR max jp: 226.7 cm/sec TR max P.6 mmHg RAP systole: 3.0 mmHg A&P - Cardiology (1) Symptomatic bradycardia: Code(s): R00.1 - Bradycardia, unspecified Status: Acute (2) Generalized weakness: Code(s): R53.1 - Weakness Status: Acute (3) Fever: Code(s): R50.9 - Fever, unspecified Status: Acute (4) Pain in joints: Code(s): M25.50 - Pain in unspecified joint Status: Acute (5) ESRD (end stage renal disease): Code(s): N18.6 - End stage renal disease Status: Acute Plan Ms. Wilson is a 77 year old female with PMH significant for CAD status post PCI x1 about 10 years ago in [place], ESRD on HD, hypertension, hyperlipidemia, CHF, COPD on 3 L nasal cannula who has had 2 recent admissions for syncope and nonsustained VT. During the last visit she was discharged home on amiodarone load for VT and with a 30-day event monitor. She presents again with severe weakness and lethargy associated with shortness of breath. She was found to be febrile in the ED with temperature 100.6. She was also noted to be bradycardic in the 40s. EKG showed sinus bradycardia with first- degree AV block. Labs also significant for hemoglobin of 8.8. Blood cultures were drawn. Amiodarone was held due to bradycardia. Patient reports taking amiodarone 400 mg twice daily for 2 weeks and was down tothe 200 mg daily dose. She denies palpitations or syncope prior to presentation. She has completed her event monitor and she states that the monitor is physically at home. Assessment: Symptomatic bradycardia-weakness and fatigue with HR 40s Possible Sepsis Anemia Hx of Nonsustained VT ESRD on HD CAD status post PCI Hypertension Hyperlipidemia Recommendations: -Patient is in sinus bradycardia in the 50s. Asymptomatic and hemodynamically stable no runs of VT noted since admission. Recent ECHO showed EF 45% with mild to moderate -Holding off on amiodarone due to bradycardia. Will consider mexiletine if develops VT. -Patient reports he has an EP appointment on Friday as well as with her primary dental office receptionist for PPM planning. - Avoid AVN blockers - Continue telemetry monitoring. -No new recommendations from a cardiac standpoint. Will follow. Time spent with patient Time Spent With Patient (min): 20 Documented By: Donal Farrar MD 01/01/231122 Signed By: <Electronically signed by Donal Farrar MD> 01/01/23 1133 [facility] Work Phone: 1(304) 766-538611-22-2023 Progress note Author Tatiana Loya [facility] January 01, 2023 10:00am Note Date/Time January 01, 2023 10:00am [facility] [address] [place] [address] Hospitalist Progress Note Signed Patient: Cinthya Wilson MR#: [id number] : 1945 Acct:[id number] Age/Sex: 77 / F Adm Date: 3 Loc: Room: [address] [place] [address] Type: ADM IN Attending Dr: Tatiana Loya MD Copies to: ~ Date of Service: 01/01/2023 Subjective Subjective Narrative: Seen and examined Clinically better No more pain No chest pain or SOB Exam Physical Exam Vital Signs: Temp Pulse Resp BP Pulse Ox O2 Del Method O2 Flow Rate 97.6 F 53 L 18 112/49 L 100 Nasal Cannula 2 01/01/23 09:15 01/01/23 09:30 01/01/23 09:15 01/01/23 09:30 01/01/23 09:15 01/01/23 09:15 01/01/23 09:15 Narrative: General patient laying in bed in no acute distress alert awake oriented x3 HEENT PERRLA Neck supple no JVD no carotid bruit CVS S1-S2 regular rate and rhythm no murmur no gallop Chest clear to auscultation percussion Abdomen soft bowel sounds normoactive no rebound no guarding Extremities no stenosis no clubbing no edema Musculoskeletal exam normal no joint effusion Neurologic exam oriented x3 alert awake no focal left Psychiatry: Normal insight and judgment Skin: no rash or lesions Objective Lab Results 01/01/23 04:21 01/01/23 04:21 Microbiology Results Microbiology 12/29/22 22:37 Blood - Right Forearm Blood Culture - Preliminary No Growth 2 Days 12/29/22 22:20 Blood - Right Antecubital Blood Culture - Preliminary No Growth 2 Days Meds Allergies and Active Meds Allergies lisinopril Allergy (Verified 12/06/22 18:31) Cough Active Meds: Active Medications Generic Name Dose Route Start Last Admin Trade Name Freq PRN Reason Stop Dose Admin Acetaminophen 650 mg 12/30/22 02:49 Acetaminophen 325 Mg Tablet PO 12/30/23 02:48 Q6HR PRN Pain Scale 1 - 3 or fever Albuterol 0.63 mg 12/30/22 03:53 Albuterol Neb 2.5 Mg/3 Ml Vial.Neb INHALATION 12/30/23 03:52 QID PRN Shortness Of Breath Atorvastatin Calcium 40 mg 12/30/22 21:00 12/31/22 21:47 Atorvastatin 40 Mg Tablet PO 12/30/23 20:59 40 mg QPM YESSENIA Administration Bisacodyl 5 mg 12/30/22 03:23 Bisacodyl 5 Mg Tablet. PO 12/30/23 03:22 BID PRN Constipation Calcium Acetate 667 mg 12/30/22 08:00 01/01/23 08:26 Calcium Acetate 667 Mg Capsule PO 12/30/23 07:59 667 mg TID.WITH.MEALS YESSENIA Administration Citalopram Hydrobromide 40 mg 12/30/22 09:00 01/01/23 08:26 Citalopram 40 Mg Tablet PO 12/30/23 08:59 40 mg DAILY YESSENIA Administration Darbepoetin Theodore 80 mcg 01/01/23 09:00 01/01/23 09:41 Darbepoetin Theodore In Polysorbat 40 Mcg/Ml Vial IV-PUSH 01/01/24 08:59 80 mcg WE YESSENIA Administration Dextrose 0 gm 12/30/22 03:23 Dextrose 50% In Water 25 Gm/50 Ml Syringe IV-PUSH 12/30/23 03:22 PRN PRN Hypoglycemia Diclofenac Sodium 4 gm 12/30/22 09:00 01/01/23 08:27 Diclofenac Sodium 1% Gel 100 Gm Tube TOPICAL 12/30/23 08:59 4 gm QID YESSENIA Administration Docusate Sodium 100 mg 12/30/22 09:00 01/01/23 08:26 Docusate 100 Mg Capsule PO 12/30/23 08:59 100 mg BID YESSENIA Administration Ferric Sodium Gluconate Complex 125 mg 12/30/22 09:00 12/30/22 10:03 Sodium Ferric Gluconat/Sucrose 62.5 Mg/5 Ml Vial IV-PUSH 12/30/23 08:59 125mg Mo@0900 YESSENIA Administration Furosemide 60 mg 12/30/22 09:00 01/01/23 08:26 Furosemide 20 Mg Tablet PO 12/30/23 08:59 60 mg BID@0800,1700 YESSENIA Administration Glucose 0.6 gm 12/30/22 03:22 Dextrose 40% Gel 15 Gm Tube PO 12/30/23 03:21 PRN PRN Hypoglycemia Glucose 0 gm 12/30/22 03:23 Dextrose 40% Gel 15 Gm Tube PO 12/30/23 03:22 PRN PRN Hypoglycemia Heparin Sodium (Porcine) 2,000 unit 12/30/22 08:29 01/01/23 09:41 Heparin 10,000 Unit/10 Ml Vial IV 12/30/23 08:28 2,000 unit PRN PRN Administration Dialysis Heparin Sodium (Porcine) 1,000 unit 12/30/22 08:29 01/01/23 09:42 Heparin 10,000 Unit/10 Ml Vial IV 12/30/23 08:28 1,000 unit PRN PRN Administration Dialysis Sodium Chloride 1,000 mls @ 0 mls/hr 12/30/22 08:29 01/01/23 09:43 0.9% Sodium Chloride 1,000 Ml MISCELLANE 12/30/23 08:28 Infused .Q0M PRN Infusion Dialysis As Directed Insulin Aspart 0 units 12/30/22 08:00 01/01/23 08:27 Insulin Aspart 300 Units/3 Ml Insuln.Pen SUBCUT 12/30/23 07:59 2 units TID.WM.HS YESSENIA Administration Protocol Midodrine 5 mg 12/30/22 03:22 Midodrine 5 Mg Tablet PO 12/30/23 03:21 TID.7A.12P.5P PRN Hypotension Multivitamins 1 tab 12/30/22 09:00 01/01/23 08:26 Multivitamin 1 Tab Tablet PO 12/30/23 08:59 1 tab DAILY YESSENIA Administration Nystatin 500,000 unit 12/31/22 14:00 01/01/23 08:25 Nystatin Susp 500,000 Unit/5 Ml Udc PO 12/31/23 13:59 500,000 unit QID YESSENIA Administration Oxycodone/Acetaminophen 1 tab 12/30/22 03:22 01/01/23 08:25 Oxycodone/Acetaminophen 5-325 Mg Tablet PO 1 tab Q6HR PRN Administration Pain Pantoprazole Sodium 40 mg 12/30/22 09:00 01/01/23 08:26 Pantoprazole 40 Mg Tablet.Dr PO 12/30/23 08:59 40 mg DAILY YESSENIA Administration Polyethylene Glycol 17 gm 12/31/22 09:00 01/01/23 08:27 Polyethylene Glycol 3350 17 Gm Powd.Pack PO 12/31/23 08:59 Not Given BID YESSENIA Pramipexole Dihydrochloride 0.5 mg 12/30/22 22:00 12/31/22 21:47 Pramipexole 0.5 Mg Tablet PO 12/30/23 21:59 0.5 mg QHS YESSENIA Administration Prednisone 40 mg 12/30/22 13:30 01/01/23 08:26 Prednisone 20 Mg Tablet PO 12/30/23 13:29 40 mg DAILY YESSENIA Administration Saliva Substitute 0 ml 12/30/22 02:59 Saliva Stimulant Agents Comb.3 44.3 Ml [place] MUCOUS MEM 12/30/23 02:58 PRN PRN Dry Mouth Sennosides 2 tab 12/30/22 22:00 12/31/22 21:48 Sennosides 8.6 Mg Tablet PO 12/30/23 21:59 2 tab QHS YESSENIA Administration Sodium Chloride 0 ml 12/29/22 22:03 12/30/22 10:03 Sodium Chloride 0.9 % 10 Ml Syringe IV-PUSH 12/29/23 22:02 10 ml PRN PRN Administration Flush Sodium Chloride 0 ml 12/30/22 06:00 01/01/23 06:01 Sodium Chloride 0.9 % 10 Ml Syringe IV-PUSH 12/30/23 05:59 10 ml QSHIFT YESSENIA Administration Sodium Chloride 0 ml 12/30/22 08:29 01/01/23 09:41 Sodium Chloride 0.9 % 10 Ml Syringe IV-PUSH 12/30/23 08:28 10 ml PRN PRN Administration Flush Vitamin D 25 mcg 12/30/22 09:00 01/01/23 08:26 Cholecalciferol 25 Mcg (1,000 Units) Tablet PO 12/30/23 08:59 25 mcg DAILY YESSENIA Administration A&P - Hospitalist Assessment/Plan (1) Weakness: (2) Swollen tongue: (3) Symptomatic bradycardia: (4) Anemia: (5) Diabetes: (6) COPD (chronic obstructive pulmonary disease): (7) CAD (coronary artery disease): (8) Recurrent right pleural effusion: (9) Type 2 diabetes mellitus with diabetic chronic kidney disease: (10) Fever: Plan Assessment/Plan. This is a 77-year-old woman came emergency room today because she is getting very weak at home. She is also having shortness of breath. Things were gettingmuch worse today during the daytime on Friday. Reportedly she slept all day. She was having a little bit of a fever. In the emergency room she seemed to have pain everywhere throughout her body. She was very weak. She almost fell just getting out of bed to the bedside commode. She is a longstanding hemodialysis patient for end-stage renal disease. She hasa history of coronary artery disease status post stenting about 10 years ago andhas heart failure with reduced ejection fraction. She also has hypertension, she has COPD and chronic hypoxic respiratory failure chronically using 3 L oxygen by nasal cannula, she has GERD, and she has diabetes mellitus type 2 on insulin. She has had recent stays here in the hospital from December 08 through December 09when she was having a wide-complex rhythm and was evaluated by cardiology. She returned on December 13 through December 16 with bradycardia. At that time cardiology recommended amiodarone to suppress bigeminy and short nonsustained runs of ventricular tachycardia but they also recommended cessation of her beta-madhu due to bradycardia. She is not anticoagulated. She is chronically hypotensive and requires midodrine especially on dialysis days. Upon arrival up to the medical floor it was noted that her heart rate is very slow at about 43 bpm. Nursing staff on the medical floor also noticed that her tongue seems to be enlarged and somewhat swollen. Patient indicates that she had noticed that her tongue was bigger because she was biting it more often. She made an appointment to see a dentist about this in a couple weeks. She was started on buspirone 10 mg daily and gabapentin 100 mg p.o. twice daily just on December 26, so that was about 3 to 4 days ago. Also, looking at her OARRS report, she was upgraded from chronic use of hydrocodone product such as [place] 10/325 up to Percocet 5/325 enough for 4 tablets a day. Looking at her OARRS report I never saw her picking up gabapentin before. Notably her hemoglobin in the emergency room today was only 8.8. When she left the hospital on December 16 it was in its baseline of 10.4. The patient states that she has been constipated and has not moved her bowels for the last 4 days. A/P Sinus bradycardia History of Non sustained VT Seen and examined Clinically stable No complaints HR is better Keep holding Beta madhu Keep holding Amiodarone PO Recent ECHO showed EF 50-55% with mild to moderate Cardiology is following Nephrology is following Profound fatigue and weakness secondary to bradycardia Improving Swollen/enlarged tongue Thrush: Nystatin PO swish and wash Improving Anemia of chronic disease : Hemoglobin and hematocrit was CAD: Aspirin daily/cardiology was consulted Hypertension: Controlled Hyperlipidemia: Continue statin Diabetes type: Insulin sliding scale Obesity: Lifestyle modification Sleep apnea: CPAP DC planning : DC when ok with Cardiology GERD: PPI Documented By: Tatiana Loya MD 01/01/23 0308 Signed By: <Electronically signed by Tatiana Loya MD> 01/01/23 1000 [facility] Work Phone: 1(920) 400-153311-21-2023 Progress note Author Edie Anand [facility] December 31, 2022 5:16pm Note Date/Time December 31, 2022 5:16pm [facility] [address] [place] [address] Cardiology Progress Note Signed Patient: Cinthya Wilson MR#: [id number] : 1945 Acct:[id number] Age/Sex: 77 / F Adm Date: 3 Loc: Room: [address] [place] [address] Type: ADM IN Attending Dr: Tatiana Loya MD Copies to: ~ Date of Service: 12/31/2022 Subjective Interval history: Ms. Wilson is a 77 year old female with PMH significant for CAD status post PCI x1 about 10 years ago in [place], ESRD on HD, hypertension, hyperlipidemia, CHF, COPD on 3 L nasal cannula who has had 2 recent admissions for syncope and nonsustained VT. During the last visit she was discharged home on amiodarone load for VT and with a 30-day event monitor. She presents again with severe weakness and lethargy associated with shortness of breath. She was found to be febrile in the ED with temperature 100.6. She was also noted to be bradycardic in the 40s. EKG showed sinus bradycardia with first- degree AV block. Labs also significant for hemoglobin of 8.8. Blood cultures were drawn. Amiodarone was held due to bradycardia. Patient reports taking amiodarone 400 mg twice daily for 2 weeks and was down tothe 200 mg daily dose. She denies palpitations or syncope prior to presentation. She has completed her event monitor and she states that the monitor is physically at home. Interim evaluation 12/31/2022: No acute events overnight. Patient reports feeling significantly better than on admission. Heart rate remains in the 50s. Exam Physical Exam Vital Signs: Temp Pulse Resp BP Pulse Ox O2 Del Method O2 Flow Rate 97.9 F 54 L 19 121/58 L 100 Nasal Cannula 2 12/31/22 16:00 12/31/22 16:00 12/31/22 16:00 12/31/22 16:00 12/31/22 16:00 12/31/22 16:00 12/31/22 16:00 Narrative: GEN: AAOx3. Chronically ill-appearing, lethargic. Neck: No JVD. Lungs: Clear to auscultation bilaterally Heart: Regular rate, bradycardic. Normal S1 and S2. No murmurs or rubs appreciated. Abdomen: Soft, nontender, nondistended, bowel sounds present. Extremities: No BLE edema. Neuro: AAOx3. No focal deficits. Objective Labs 12/31/22 04:07 12/31/22 04:07 Labs: Laboratory Results - last 24 hr 12/30/22 12/31/22 12/31/22 22:09 02:39 04:07 Corrected WBC 7.3 Uncorrected WBC Count 7.3 RBC 3.44 L Hgb 9.7 L Hct 30.9 L MCV 89.8 MCH 28.1 MCHC 31.3 L RDW 17.7 H Plt Count 409 MPV 7.8 Neut % (Auto) 91.5 Lymph % (Auto) 4.3 Mchenry % (Auto) 4.1 Eos % (Auto) 0.0 Baso % (Auto) 0.1 Nucleat RBC Rel Count 0.1 Neut # (Auto) 6.7 Lymph # (Auto) 0.3 L Mchenry # (Auto) 0.3 Eos # (Auto) 0.0 Baso # (Auto) 0.0 PHA Creatinine Clear Sodium Potassium Chloride Carbon Dioxide Anion Gap BUN Creatinine Est GFR (CKD-EPI) Glucose POC Glucose 373 227 Calcium Total Bilirubin AST ALT Alkaline Phosphatase Total Protein Albumin Globulin Albumin/Globulin Ratio 12/31/22 12/31/22 12/31/22 04:07 08:11 11:51 Corrected WBC Uncorrected WBC Count RBC Hgb Hct MCV MCH MCHC RDW Plt Count MPV Neut % (Auto) Lymph % (Auto) Mchenry % (Auto) Eos % (Auto) Baso % (Auto) Nucleat RBC Rel Count Neut # (Auto) Lymph # (Auto) Mchenry # (Auto) Eos # (Auto) Baso # (Auto) PHA Creatinine Clear 12.35 Sodium 132 L D Potassium 3.8 Chloride 93 L Carbon Dioxide 27.5 Anion Gap 15.3 H BUN 36 H D Creatinine 3.40 H D Est GFR (CKD-EPI) 13.528 Glucose 255 H D POC Glucose 225 246 Calcium 9.7 Total Bilirubin 0.4 AST 21 ALT 23 Alkaline Phosphatase 157 H Total Protein 6.9 Albumin 3.2 L Globulin 3.7 Albumin/Globulin Ratio 0.9 12/31/22 16:37 Corrected WBC Uncorrected WBC Count RBC Hgb Hct MCV MCH MCHC RDW Plt Count MPV Neut % (Auto) Lymph % (Auto) [place]henry % (Auto) Eos % (Auto) Baso % (Auto) Nucleat RBC Rel Count Neut # (Auto) Lymph # (Auto) Mchenry # (Auto) Eos # (Auto) Baso # (Auto) PHA Creatinine Clear Sodium Potassium Chloride Carbon Dioxide Anion Gap BUN Creatinine Est GFR (CKD-EPI) Glucose POC Glucose 397 Calcium Total Bilirubin AST ALT Alkaline Phosphatase Total Protein Albumin Globulin Albumin/Globulin Ratio A&P - Cardiology (1) Symptomatic bradycardia: Code(s): R00.1 - Bradycardia, unspecified Status: Acute (2) Generalized weakness: Code(s): R53.1 - Weakness Status: Acute (3) Fever: Code(s): R50.9 - Fever, unspecified Status: Acute (4) Pain in joints: Code(s): M25.50 - Pain in unspecified joint Status: Acute (5) ESRD (end stage renal disease): Code(s): N18.6 - End stage renal disease Status: Acute Plan Ms. Wilson is a 77 year old female with PMH significant for CAD status post PCI x1 about 10 years ago in [place], ESRD on HD, hypertension, hyperlipidemia, CHF, COPD on 3 L nasal cannula who has had 2 recent admissions for syncope and nonsustained VT. During the last visit she was discharged home on amiodarone load for VT and with a 30-day event monitor. She presents again with severe weakness and lethargy associated with shortness of breath. She was found to be febrile in the ED with temperature 100.6. She was also noted to be bradycardic in the 40s. EKG showed sinus bradycardia with first- degree AV block. Labs also significant for hemoglobin of 8.8. Blood cultures were drawn. Amiodarone was held due to bradycardia. Patient reports taking amiodarone 400 mg twice daily for 2 weeks and was down tothe 200 mg daily dose. She denies palpitations or syncope prior to presentation. She has completed her event monitor and she states that the monitor is physically at home. Assessment: Symptomatic bradycardia-weakness and fatigue with HR 40s Possible Sepsis Anemia Hx of Nonsustained VT ESRD on HD CAD status post PCI Hypertension Hyperlipidemia Recommendations: -She is in sinus bradycardia in the 50s. No runs of VT noted since admission. Recent ECHO showed EF 50-55% with mild to moderate -Holding off on amiodarone due to bradycardia. Will consider mexiletine if develops VT. -Patient reports he has an EP appointment on Friday as well as with her primary dental office receptionist for PPM planning. -Spoke to daughter today, she will drop off event monitor at [facility] - Avoid AVN blockers - Continue telemetry monitoring. - Will follow. Documented By: Edie Michel MD 12/31/221710 Signed By: <Electronically signed by Edie Michel MD> 12/31/221715 [facility] Work Phone: 1([phone]) 505-898111-21-2023 Progress note Author Narinder [facility] December 31, 2022 12:23pm Note Date/Time December 31, 2022 12:18pm [facility] [address] [place] [address] Nephrology Progress Note Signed Patient: Cinthya Wilson MR#: [id number] : 1945 Acct:[id number] Age/Sex: 77 / F Adm Date: 3 Loc: Room: [address] [place] [address] Type: ADM IN Attending Dr: Tatiana Loya MD Copies to: ~ Date of Service: 12/31/2022 Subjective Subjective Narrative: Ms. 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 Patient currently gets dialysis at [facility] dialysis unit on MWF schedule. Patient had recent admission on December 07 for syncopal episode and she was found to have episodes of nonsustained V. tach with prolonged QT interval. She was evaluated by cardiology on several occasions, first carvedilol switched to metoprolol however because of bradycardia and persistent current nonsustained V. tach, she was started on amiodarone with holding metoprolol. Patient was informed that she will need a pacemaker as outpatient and she was supposed to follow-up with cardiology by the end of this month. Evaluation in ER showed bradycardia 30s to40/min. Hemoglobin was down to 8.5 g/dL compared to 10.4 on December 16. Patient is not on anticoagulation. Patient came to the ER because of persistent weakness and almost fell just getting out of the bed to the bedside commode. She stated that she has pain allover her body involving the joints and bone. Recently her narcotics was upgraded to oxycodone every 6 hours. Patient has COPD with chronic hypoxemic respiratory failure on 3 L oxygen at home. Patient is due for dialysis today hence nephrology was consulted. Interval history: Patient was started on prednisone yesterday by Dr. Simpson for concern about polymyalgia rheumatica inducing significant bone and muscle pain. She had significant improvement over the last 24 hours. Blood pressure also has improved 128/60 and pulse 52/min. Patient had full hemodialysis yesterday with no events. Today potassium 3.8 mmol/L. No acidosis. Cardiac event monitor was reviewed by Dr. Escobar. Patient had 5 tracing was sent for review all demonstrate normal sinus rhythm with normal heart rate however one of the strips demonstrate high-grade AV block with a 3-1 AV conduction and 3.1-second pause this was not asymptomatic. Exam Physical Exam Vital Signs: Temp Pulse Resp BP Pulse Ox O2 Del Method O2 Flow Rate 36.8 C 52 L 20 128/60 99 Nasal Cannula 3 12/31/22 08:00 12/31/22 10:12/31/22 10:12/31/22 10:12/31/22 10:00 12/31/22 10:12/31/22 10:00 Narrative: Constitutional: Up in the bed, awake with no respiratory distress, she is on chronic home oxygen for COPD. HEENT: She has mild pallor. Mucous membranes are moist. Cardiovascular: RRR, normal S1-S2, no gallop or rub, No JVD Respiratory: Diminished breath sounds. No crackles or wheezes. Gastrointestinal: Soft, non tender, positive bowel sounds. No palpable organs or masses Extremities: 1+ edema Skin: No rashes or bruises Musculoskeletal: Muscle tenderness has improved. Neurology: Awake, alert, oriented ?3, No focal motor or sensory deficits. Psych: Normal mood and affect Vascular access: Left arm AV fistula with good thrill. Objective Intake and Output I&O: Intake & Output 12/28/22 12/29/22 12/30/22 12/31/22 23:59 23:59 23:59 23:59 Intake Total 1310 / 1310 200 / 200 Output Total 2503 / 2503 0 / 0 Balance -1193 / -1193 200 / 200 Weight 63.3 kg 63.4 kg 60.4 kg Meds and Allergies Meds: Active Medications Acetaminophen (Acetaminophen 325 Mg Tablet) 650 mg PO Q6HR PRN PRN Reason: Pain Scale 1 - 3 or fever Stop: 12/30/23 02:48 Albuterol (Albuterol Neb 2.5 Mg/3 Ml Vial.Neb) 0.63 mg INHALATION QID PRN PRN Reason: Shortness Of Breath Stop: 12/30/23 03:52 Amiodarone HCl (Amiodarone 200 Mg Tablet) 200 mg PO DAILY YESSENIA Stop: 12/31/23 11:59 Last Admin: 12/31/22 11:55 Dose: Not Given Atorvastatin Calcium (Atorvastatin 40 Mg Tablet) 40 mg PO QPM YESSENIA Stop: 12/30/23 20:59 Last Admin: 12/30/22 22:13 Dose: 40 mg Bisacodyl (Bisacodyl 5 Mg Tablet.Dr) 5 mg PO BID PRN PRN Reason: Constipation Stop: 12/30/23 03:22 Calcium Acetate (Calcium Acetate 667 Mg Capsule) 667 mg PO TID.WITH.MEALS YESSENIA Stop: 12/30/23 07:59 Last Admin: 12/31/22 11:55 Dose: 667 mg Citalopram Hydrobromide (Citalopram 40 Mg Tablet) 40 mg PO DAILY YESSENIA Stop: 12/30/23 08:59 Last Admin: 12/31/22 08:37 Dose: 40 mg Darbepoetin [place] (Darbepoetin Theodore In Polysorbat 60 Mcg/Ml Vial) 80 mcg IV- PUSHWE YESSENIA Stop: 01/01/24 08:28 Dextrose (Dextrose 50% In Water 25 Gm/50 Ml Syringe) 0 gm IV-PUSH PRN PRN PRN Reason: Hypoglycemia Stop: 12/30/23 03:22 Diclofenac Sodium (Diclofenac Sodium 1% Gel 100 Gm Tube) 4 gm TOPICAL QID YESSENIA Stop: 12/30/23 08:59 Last Admin: 12/31/22 08:44 Dose: Not Given Docusate Sodium (Docusate 100 Mg Capsule) 100 mg PO BID [facility] Stop: 12/30/23 08:59 Last Admin: 12/31/22 08:37 Dose: 100 mg Ferric Sodium Gluconate Complex (Sodium Ferric Gluconat/Sucrose 62.5 Mg/5 Ml Vial) 125 mg IV-PUSH Mo@0900 [facility] Stop: 12/30/23 08:59 Last Admin: 12/30/22 10:03 Dose: 125 mg Furosemide (Furosemide 20 Mg Tablet) 60 mg PO BID@0800,1700 [facility] Stop: 12/30/23 08:59 Last Admin: 12/31/22 08:37 Dose: 60 mg Glucose (Dextrose 40% Gel 15 Gm Tube) 0.6 gm PO PRN PRN PRN Reason: Hypoglycemia Stop: 12/30/23 03:21 Glucose (Dextrose 40% Gel 15 Gm Tube) 0 gm PO PRN PRN PRN Reason: Hypoglycemia Stop: 12/30/23 03:22 Heparin Sodium (Porcine) (Heparin 10,000 Unit/10 Ml Vial) 2,000 unit IV PRN PRN PRN Reason: Dialysis Stop: 12/30/23 08:28 Last Admin: 12/30/22 10:02 Dose: 2,000 unit Heparin Sodium (Porcine) (Heparin 10,000 Unit/10 Ml Vial) 1,000 unit IV PRN PRN PRN Reason: Dialysis Stop: 12/30/23 08:28 Last Admin: 12/30/22 10:02 Dose: 1,000 unit Sodium Chloride (0.9% Sodium Chloride 1,000 Ml) 1,000 mls @ 0 mls/hr MISCELLANE.Q0M PRN PRN Reason: Dialysis Stop: 12/30/23 08:28 Last Infusion: 12/30/22 10:05 Dose: Infused Insulin Aspart (Insulin Aspart 300 Units/3 Ml Insuln.Pen) 0 units SUBCUT TID.WM.HS [facility]; Protocol Stop: 12/30/23 07:59 Last Admin: 12/31/22 11:55 Dose: 3 units Midodrine (Midodrine 5 Mg Tablet) 5 mg PO TID.7A.12P.5P PRN PRN Reason: Hypotension Stop: 12/30/23 03:21 Multivitamins (Multivitamin 1 Tab Tablet) 1 tab PO DAILY YESSENIA Stop: 12/30/23 08:59 Last Admin: 12/31/22 08:37 Dose: 1 tab Nystatin (Nystatin Susp 500,000 Unit/5 Ml Udc) 500,000 unit PO QID YESSENIA Stop: 12/31/23 13:59 Oxycodone/Acetaminophen (Oxycodone/Acetaminophen 5-325 Mg Tablet) 1 tab PO [id number] PRN Reason: Pain Last Admin: 12/30/22 16:50 Dose: 1 tab Pantoprazole Sodium (Pantoprazole 40 Mg Tablet.Dr) 40 mg PO DAILY YESSENIA Stop: 12/30/23 08:59 Last Admin: 12/31/22 08:37 Dose: 40 mg Polyethylene Glycol (Polyethylene Glycol 3350 17 Gm Powd.Pack) 17 gm PO BID YESSENIA Stop: 12/31/23 08:59 Last Admin: 12/31/22 08:37 Dose: Not Given Pramipexole Dihydrochloride (Pramipexole 0.5 Mg Tablet) 0.5 mg PO QHS YESSENIA Stop: 12/30/23 21:59 Last Admin: 12/30/22 22:13 Dose: 0.5 mg Prednisone (Prednisone 20 Mg Tablet) 40 mg PO DAILY YESSENIA Stop: 12/30/23 13:29 Last Admin: 12/31/22 08:37 Dose: 40 mg Saliva Substitute (Saliva Stimulant Agents Comb.3 44.3 Ml [place]) 0 ml MUCOUS MEM PRN PRN PRN Reason: Dry Mouth Stop: 12/30/23 02:58 Sennosides (Sennosides 8.6 Mg Tablet) 2 tab PO QHS YESSENIA Stop: 12/30/23 21:59 Last Admin: 12/30/22 22:13 Dose: 2 tab Sodium Chloride (Sodium Chloride 0.9 % 10 Ml Syringe) 0 ml IV-PUSH PRN PRN PRN Reason: Flush Stop: 12/29/23 22:02 Last Admin: 12/30/22 10:03 Dose: 10 ml Sodium Chloride (Sodium Chloride 0.9 % 10 Ml Syringe) 0 ml IV-PUSH QSHIFT YESSENIA Stop: 12/30/23 05:59 Last Admin: 12/31/22 08:25 Dose: Not Given Sodium Chloride (Sodium Chloride 0.9 % 10 Ml Syringe) 0 ml IV-PUSH PRN PRN PRN Reason: Flush Stop: 12/30/23 08:28 Vitamin D (Cholecalciferol 25 Mcg (1,000 Units) Tablet) 25 mcg PO DAILY YESSENIA Stop: 12/30/23 08:59 Last Admin: 12/31/22 08:37 Dose: 25 mcg Allergies lisinopril Allergy (Verified 12/06/22 18:31) Cough Results Labs 12/31/22 04:07 12/31/22 04:07 Labs: 12/30/22 12/31/22 06:45 04:07 BUN 36 H D Creatinine 3.40 H D Ferritin 2214.0 H Albumin 3.2 L Radiology Impressions Impressions - last 24 hours: Any impression(s) listed above is documentation that was entered by the reading physician into a diagnostic report(s) for Cinthya Wilson. I have reviewed the report(s) and am incorporating any findings in the treatment plan of this patient where applicable. 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 She gets dialysis admitted for dialysis unit on MWF schedule. Patient had PD for short time 2019 for DAVID on top of CKD and cardiorenal syndrome however renal function did recover. (2) Anemia of renal disease: Assessment/Problem Details: Hemoglobin did drop with no obvious bleeding. She has adequate iron stores however transferrin saturation below 20%. (3) Type 2 diabetes mellitus with diabetic chronic kidney disease: Assessment/Problem Details: She has insulin-dependent type 2 diabetes mellitus. (4) Benign hypertension with end-stage renal disease: Assessment/Problem Details: Blood pressure did improve on dialysis and possibly progression of underlying CAD/CHF. He is appears to be a euvolemic however respiratory rate 30 and she has elevated BNP that seems to be chronic.. She occasionally takes midodrine with dialysis (5) Secondary hyperparathyroidism: Assessment/Problem Details: She has a secondary hyperparathyroidism due to the ESRD and hyperphosphatemia. Currently take calcium acetate at home. (6) Pain in joints: Assessment/Problem Details: Patient has generalized bone and joints pain. She is currently on oxycodone with intermittent confusion. Patient has a history of polymyalgia and she has aprevious back surgery. Plan * Patient is clinically stable. She had full hemodialysis yesterday. She is euvolemic with no need for dialysis today. No hyperkalemia or acidosis. Next hemodialysis will be tomorrow per her chronic orders. * Patient on Aranesp with hemodialysis weekly for anemia. Aranesp was increased to 80 mcg weekly. Considering the borderline concerning saturation less than 20%, will add ferric sodium gluconate 125 mcg weekly with dialysis. * All medications reviewed. * Monitor daily intake and output and renal panel. We will adjust medications and dialysis prescriptions accordingly. Documented By: Narinder Toussaint MD 12/31/221214 Signed By: <Electronically signed by MD Narinder Toussaint> 12/31/22 1223 [facility] Work Phone: 1(226) 223-588111-21-2023 Progress note Author Tatiana Loya [facility] December 31, 2022 11:33am Note Date/Time December 31, 2022 11:33am [facility] [address] [place] [address] Hospitalist Progress Note Signed Patient: Cinthya Wilson MR#: [id number] : 1945 Acct:[id number] Age/Sex: 77 / F Adm Date: 3 Loc: Room: [address] [place] [address] Type: ADM IN Attending Dr: Tatiana Loya MD Copies to: ~ Date of Service: 12/31/2022 Subjective Subjective Narrative: Seen and examined Clinically better No more pain No chest pain or SOB Exam Physical Exam Vital Signs: Temp Pulse Resp BP Pulse Ox O2 Del Method O2 Flow Rate 98.2 F 52 L 20 128/60 99 Nasal Cannula 3 12/31/22 08:00 12/31/22 10:00 12/31/22 10:00 12/31/22 10:00 12/31/22 10:00 12/31/22 10:00 12/31/22 10:00 Narrative: General patient laying in bed in no acute distress alert awake oriented x3 HEENT PERRLA Neck supple no JVD no carotid bruit CVS S1-S2 regular rate and rhythm no murmur no gallop Chest clear to auscultation percussion Abdomen soft bowel sounds normoactive no rebound no guarding Extremities no stenosis no clubbing no edema Musculoskeletal exam normal no joint effusion Neurologic exam oriented x3 alert awake no focal left Psychiatry: Normal insight and judgment Skin: no rash or lesions Objective Lab Results 12/31/22 04:07 12/31/22 04:07 Microbiology Results Microbiology 12/29/22 22:37 Blood - Right Forearm Blood Culture - Preliminary No Growth 1 Day 12/29/22 22:20 Blood - Right Antecubital Blood Culture - Preliminary No Growth 1 Day 12/30/22 09:05 Stool Stool Occult Blood (TRINITY) - Final 12/30/22 06:50 Nasopharyngeal Respiratory Panel (PCR) - Final Meds Allergies and Active Meds Allergies lisinopril Allergy (Verified 12/06/22 18:31) Cough Active Meds: Active Medications Generic Name Dose Route Start Last Admin Trade Name Molinaq PRN Reason Stop Dose Admin Acetaminophen 650 mg 12/30/22 02:49 Acetaminophen 325 Mg Tablet PO 12/30/23 02:48 Q6HR PRN Pain Scale 1 - 3 or fever Albuterol 0.63 mg 12/30/22 03:53 Albuterol Neb 2.5 Mg/3 Ml Vial.Neb INHALATION 12/30/23 03:52 QID PRN Shortness Of Breath Atorvastatin Calcium 40 mg 12/30/22 21:00 12/30/22 22:13 Atorvastatin 40 Mg Tablet PO 12/30/23 20:59 40 mg QPM YESSENIA Administration Bisacodyl 5 mg 12/30/22 03:23 Bisacodyl 5 Mg Tablet.Dr PO 12/30/23 03:22 BID PRN Constipation Calcium Acetate 667 mg 12/30/22 08:00 12/31/22 08:37 Calcium Acetate 667 Mg Capsule PO 12/30/23 07:59 667 mg TID.WITH.MEALS YESSENIA Administration Citalopram Hydrobromide 40 mg 12/30/22 09:00 12/31/22 08:37 Citalopram 40 Mg Tablet PO 12/30/23 08:59 40 mg DAILY YESSENIA Administration Darbepoetin Theodore 80 mcg 01/01/23 08:29 Darbepoetin Theodore In Polysorbat 60 Mcg/Ml Vial IV-PUSH 01/01/24 08:28 WE YESSENIA Dextrose 0 gm 12/30/22 03:23 Dextrose 50% In Water 25 Gm/50 Ml Syringe IV-PUSH 12/30/23 03:22 PRN PRN Hypoglycemia Diclofenac Sodium 4 gm 12/30/22 09:00 12/31/22 08:44 Diclofenac Sodium 1% Gel 100 Gm Tube TOPICAL 12/30/23 08:59 Not Given QID YESSENIA Docusate Sodium 100 mg 12/30/22 09:00 12/31/22 08:37 Docusate 100 Mg Capsule PO 12/30/23 08:59 100 mg BID YESSENIA Administration Ferric Sodium Gluconate Complex 125 mg 12/30/22 09:00 12/30/22 10:03 Sodium Ferric Gluconat/Sucrose 62.5 Mg/5 Ml Vial IV-PUSH 12/30/23 08:59 125mg Mo@0900 YESSENIA Administration Furosemide 60 mg 12/30/22 09:00 12/31/22 08:37 Furosemide 20 Mg Tablet PO 12/30/23 08:59 60 mg BID@0800,1700 YESSENIA Administration Glucose 0.6 gm 12/30/22 03:22 Dextrose 40% Gel 15 Gm Tube PO 12/30/23 03:21 PRN PRN Hypoglycemia Glucose 0 gm 12/30/22 03:23 Dextrose 40% Gel 15 Gm Tube PO 12/30/23 03:22 PRN PRN Hypoglycemia Heparin Sodium (Porcine) 2,000 unit 12/30/22 08:29 12/30/22 10:02 Heparin 10,000 Unit/10 Ml Vial IV 12/30/23 08:28 2,000 unit PRN PRN Administration Dialysis Heparin Sodium (Porcine) 1,000 unit 12/30/22 08:29 12/30/22 10:02 Heparin 10,000 Unit/10 Ml Vial IV 12/30/23 08:28 1,000 unit PRN PRN Administration Dialysis Sodium Chloride 1,000 mls @ 0 mls/hr 12/30/22 08:29 12/30/22 10:05 0.9% Sodium Chloride 1,000 Ml MISCELLANE 12/30/23 08:28 Infused .Q0M PRN Infusion Dialysis As Directed Insulin Aspart 0 units 12/30/22 08:00 12/31/22 08:44 Insulin Aspart 300 Units/3 Ml Insuln.Pen SUBCUT 12/30/23 07:59 3 units TID.WM.HS YESSENIA Administration Protocol Midodrine 5 mg 12/30/22 03:22 Midodrine 5 Mg Tablet PO 12/30/23 03:21 TID.7A.12P.5P PRN Hypotension Multivitamins 1 tab 12/30/22 09:00 12/31/22 08:37 Multivitamin 1 Tab Tablet PO 12/30/23 08:59 1 tab DAILY YESSENIA Administration Oxycodone/Acetaminophen 1 tab 12/30/22 03:22 12/30/22 16:50 Oxycodone/Acetaminophen 5-325 Mg Tablet PO 1 tab Q6HR PRN Administration Pain Pantoprazole Sodium 40 mg 12/30/22 09:00 12/31/22 08:37 Pantoprazole 40 Mg Tablet.Dr PO 12/30/23 08:59 40 mg DAILY YESSENIA Administration Polyethylene Glycol 17 gm 12/31/22 09:00 12/31/22 08:37 Polyethylene Glycol 3350 17 Gm Powd.Pack PO 12/31/23 08:59 Not Given BID YESSENIA Pramipexole Dihydrochloride 0.5 mg 12/30/22 22:00 12/30/22 22:13 Pramipexole 0.5 Mg Tablet PO 12/30/23 21:59 0.5 mg QHS YESSENIA Administration Prednisone 40 mg 12/30/22 13:30 12/31/22 08:37 Prednisone 20 Mg Tablet PO 12/30/23 13:29 40 mg DAILY YESSENIA Administration Saliva Substitute 0 ml 12/30/22 02:59 Saliva Stimulant Agents Comb.3 44.3 Ml [place] MUCOUS MEM 12/30/23 02:58 PRN PRN Dry Mouth Sennosides 2 tab 12/30/22 22:00 12/30/22 22:13 Sennosides 8.6 Mg Tablet PO 12/30/23 21:59 2 tab QHS YESSENIA Administration Sodium Chloride 0 ml 12/29/22 22:03 12/30/22 10:03 Sodium Chloride 0.9 % 10 Ml Syringe IV-PUSH 12/29/23 22:02 10 ml PRN PRN Administration Flush Sodium Chloride 0 ml 12/30/22 06:00 12/31/22 08:25 Sodium Chloride 0.9 % 10 Ml Syringe IV-PUSH 12/30/23 05:59 Not Given QSHIFT YESSENIA Sodium Chloride 0 ml 12/30/22 08:29 Sodium Chloride 0.9 % 10 Ml Syringe IV-PUSH 12/30/23 08:28 PRN PRN Flush Vitamin D 25 mcg 12/30/22 09:00 12/31/22 08:37 Cholecalciferol 25 Mcg (1,000 Units) Tablet PO 12/30/23 08:59 25 mcg DAILY YESSENIA Administration A&P - Hospitalist Assessment/Plan (1) Weakness: (2) Swollen tongue: (3) Symptomatic bradycardia: (4) Anemia: (5) Diabetes: (6) COPD (chronic obstructive pulmonary disease): (7) CAD (coronary artery disease): (8) Recurrent right pleural effusion: (9) Type 2 diabetes mellitus with diabetic chronic kidney disease: (10) Fever: Plan Assessment/Plan. This is a 77-year-old woman came emergency room today because she is getting very weak at home. She is also having shortness of breath. Things were gettingmuch worse today during the daytime on Friday. Reportedly she slept all day. She was having a little bit of a fever. In the emergency room she seemed to have pain everywhere throughout her body. She was very weak. She almost fell just getting out of bed to the bedside commode. She is a longstanding hemodialysis patient for end-stage renal disease. She hasa history of coronary artery disease status post stenting about 10 years ago andhas heart failure with reduced ejection fraction. She also has hypertension, she has COPD and chronic hypoxic respiratory failure chronically using 3 L oxygen by nasal cannula, she has GERD, and she has diabetes mellitus type 2 on insulin. She has had recent stays here in the hospital from December 08 through December 09when she was having a wide-complex rhythm and was evaluated by cardiology. She returned on December 13 through December 16 with bradycardia. At that time cardiology recommended amiodarone to suppress bigeminy and short nonsustained runs of ventricular tachycardia but they also recommended cessation of her beta-madhu due to bradycardia. She is not anticoagulated. She is chronically hypotensive and requires midodrine especially on dialysis days. Upon arrival up to the medical floor it was noted that her heart rate is very slow at about 43 bpm. Nursing staff on the medical floor also noticed that her tongue seems to be enlarged and somewhat swollen. Patient indicates that she had noticed that her tongue was bigger because she was biting it more often. She made an appointment to see a dentist about this in a couple weeks. She was started on buspirone 10 mg daily and gabapentin 100 mg p.o. twice daily just on December 26, so that was about 3 to 4 days ago. Also, looking at her OARRS report, she was upgraded from chronic use of hydrocodone product such as [place] 10/325 up to Percocet 5/325 enough for 4 tablets a day. Looking at her OARRS report I never saw her picking up gabapentin before. Notably her hemoglobin in the emergency room today was only 8.8. When she left the hospital on December 16 it was in its baseline of 10.4. The patient states that she has been constipated and has not moved her bowels for the last 4 days. A/P Sinus bradycardia History of Non sustained VT Seen and examined Doing much better today No complaints HR is better Keep holding Beta madhu Resume Amiodarone PO 200 mg daily Cardiology is following Nephrology is following Profound fatigue and weakness secondary to bradycardia Improving Swollen/enlarged tongue Thrush: Nystatin PO swish and wash Anemia of chronic disease : Hemoglobin and hematocrit was CAD: Aspirin daily/cardiology was consulted Hypertension: Controlled Hyperlipidemia: Continue statin Diabetes type: Insulin sliding scale Obesity: Lifestyle modification Sleep apnea: CPAP GERD: PPI Documented By: Tatiana Loya MD 12/31/221124 Signed By: <Electronically signed by Tatiana Loya MD> 12/31/22 1133 [facility] Work Phone: [phone] 393-554911-20-2023 Consult note Author Edie Michel [facility] December 30, 2022 8:49pm Note Date/Time December 30, 2022 8:37pm [facility] [address] [place] [address] Cardiology Consult Note Signed Patient: Cinthya Wilson MR#: [id number] : 1945 Acct:[id number] Age/Sex: 77 / F Adm Date: 3 Loc: Room: [address] [place] [address] Type: ADM IN Attending Dr: Tatiana Loya MD Copies to: MD Lily Duran II, MD Linda Njoroge, MD~ Cardiology HPI History of Present Illness Consult Date: 12/30/22 Reason for Consult: Bradycardia and history of VT HPI: Ms. Wilson is a 77 year old female with PMH significant for CAD status post PCI x1 about 10 years ago in [place], ESRD on HD, hypertension, hyperlipidemia, CHF, COPD on 3 L nasal cannula who has had 2 recent admissions for syncope and nonsustained VT. During the last visit she was discharged home on amiodarone load for VT and with a 30-day event monitor. She presents again with severe weakness and lethargy associated with shortness of breath. She was found to be febrile in the ED with temperature 100.6. She was also noted to be bradycardic in the 40s. EKG showed sinus bradycardia with first- degree AV block. Labs also significant for hemoglobin of 8.8. Blood cultures were drawn. Amiodarone was held due to bradycardia. Patient reports taking amiodarone 400 mg twice daily for 2 weeks and was down tothe 200 mg daily dose. She denies palpitations or syncope prior to presentation. She has completed her event monitor and she states that the monitor is physically at home. Review of Systems Review of Systems All other systems reviewed & are negative unless noted below or in HPI [facility] Medical History Anemia Anxiety Anxiety and depression Arthritis AV fistula left CAD (coronary artery disease) Cataract had bilateral PHACO Cervical spinal stenosis CHF (congestive heart failure) Chronic back pain Chronic kidney disease COPD (chronic obstructive pulmonary disease) Diabetes ESRD (end stage renal disease) GERD (gastroesophageal reflux disease) HTN (hypertension) Hyperlipidemia Insomnia Irregular heart rhythm prior to stent placement per pt report Lumbosacral spondylolysis LVH (left ventricular hypertrophy) Neck pain with history of cervical spinal surgery Neuropathy right thigh and feet Pneumonia Polymyalgia Skin cancer mohs procedure for removal Sleep apnea Surgical History H/O heart artery stent History of appendectomy History of back surgery lumbar History of x2 History of carpal tunnel release bilateral History of coronary angioplasty with insertion of stent History of D&C History of shoulder surgery rt shoulder History of tonsillectomy History of total abdominal hysterectomy and bilateral salpingo-oophorectomy Family History Father Heart disease Cancer Mother Cancer Diabetes Social History Smoking Status: Never smoker Substance Use Type: None Social History Comments: adult son Meds Medications and Allergies Allergies lisinopril Allergy (Verified 12/06/22 18:31) Cough Home Medications atorvastatin 40 mg tablet 40 mg PO QPM 11/19/16 [History Confirmed 12/29/22] multivitamin 1 tab PO DAILY 09/07/19 [History Confirmed 12/29/22] aspirin 81 mg tablet,delayed release 81 mg PO DAILY 11/25/19 [History Confirmed 12/29/22] cholecalciferol (vitamin D3) 25 mcg (1,000 unit) tablet (Vitamin D3) 25 mcg PO DAILY 11/25/19 [History Confirmed 12/29/22] citalopram 40 mg tablet 40 mg PO DAILY 11/25/19 [History Confirmed 12/29/22] albuterol sulfate 0.63 mg/3 mL solution for nebulization 0.63 mg inhalation QID PRN SOB 06/26/21 [History Confirmed 12/29/22] dextrose 40 % oral gel (Glutose-15) 0.6 g PO PRN PRN Hypoglycemia #112.5 grams 11/20/21 [Rx Confirmed 12/29/22] docusate sodium 100 mg capsule 100 mg PO BID #60 caps 11/20/21 [Rx Confirmed 12/29/22] insulin aspart U-100 100 unit/mL (3 mL) subcutaneous pen (Novolog FlexPen U-100 Insulin aspart) 1 sliding scale dose subcut TID.WM.HS #15 mL 11/20/21 [Rx Confirmed 12/29/22] pen needle, diabetic 32 gauge x 5/32 (BD Ultra-Fine Lexis Pen Needle) #100 ea 11/20/21 [Rx Confirmed 12/13/22] calcium acetate(phosphat bind) 667 mg capsule 667 mg PO TID.WITH.MEALS 60 days #240 caps 02/26/22 [Rx Confirmed 12/29/22] pantoprazole 40 mg tablet,delayed release 40 mg PO DAILY 05/17/22 [History Confirmed 12/29/22] diclofenac sodium 1 % topical gel (Voltaren Arthritis Pain) 4 g topical QID #0 grams 10/31/22 [Rx Confirmed 12/29/22] furosemide 20 mg tablet 60 mg PO BID 30 days #180 tabs 10/31/22 [Rx Confirmed 12/29/22] fluticasone fur. 100 mcg-umeclid 62.5 mcg-vilant 25 mcg inhalat.powder (Trelegy Ellipta) 1 ea inhalation DAILY 12/06/22 [History Confirmed 12/29/22] oxycodone-acetaminophen 5 mg-325 mg tablet 1 tab PO Q4-6H PRN Pain 12/06/22 [History Confirmed 12/29/22] pramipexole 0.5 mg tablet 0.5 mg PO HS 12/06/22 [History Confirmed 12/29/22] midodrine 5 mg tablet 5 mg PO TID PRN Hypotension 12/07/22 [History Confirmed 12/29/22] darbepoetin theodore in polysorbat 60 mcg/mL in polysorbate injection (Aranesp) mcg 12/29/22 [History] fluticasone fur. 100 mcg-umeclid 62.5 mcg-vilant 25 mcg inhalat.powder (Trelegy Ellipta) inhalation 12/29/22 [History] insulin lispro 100 unit/mL subcutaneous pen (Humalog KwikPen (U-100) Insulin) subcut 12/29/22 [History] ondansetron 4 mg disintegrating tablet 4 mg PO Q6H PRN Nausea 12/29/22 [History Confirmed 12/29/22] pramipexole 0.5 mg tablet (Mirapex) 0.5 mg PO QHS 12/29/22 [History Confirmed 12/29/22] amiodarone 200 mg tablet 200 mg PO DAILY 12/30/22 [History Confirmed 12/30/22] Exam Physical Exam Vital Signs: Temp Pulse Resp BP Pulse Ox O2 Del Method O2 Flow Rate 98.7 F 66 25 H 119/58 L 98 Nasal Cannula 3 12/30/22 17:00 12/30/22 19:00 12/30/22 19:00 12/30/22 19:00 12/30/22 17:00 12/30/22 19:00 12/30/22 19:00 Narrative: GEN: AAOx3. Chronically ill-appearing, lethargic. Neck: No JVD. Lungs: Clear to auscultation bilaterally Heart: Regular rate, bradycardic. Normal S1 and S2. No murmurs or rubs appreciated. Abdomen: Soft, nontender, nondistended, bowel sounds present. Extremities: No BLE edema. Neuro: AAOx3. No focal deficits. Results Labs 12/30/22 06:45 12/30/22 06:45 Lab results: Cardiac Enzymes 12/29/22 12/29/22 12/30/22 Range/Units 22:20 22:20 06:45 AST 21 19 (13-39) U/L B-Natriuretic Peptide 1358.0 H (5-100) pg/mL CBC 12/29/22 12/30/22 Range/Units 22:20 06:45 RBC 3.10 L 3.02 L (3.60-5.00) X10E6/uL Hgb 8.8 L 8.5 L (11.8-15.4) g/dL Hct 27.8 L 27.0 L (34.0-46.4) % Plt Count 397 386 (150-450) x10E3/uL Neut # (Auto) 6.9 6.2 (1.8-7.7) x10E3/uL Lymph # (Auto) 1.2 1.1 (1.00-4.8) x10E3/uL Mchenry # (Auto) 1.3 H 1.2 H (0.0-0.8) x10E3/uL Eos # (Auto) 0.1 0.1 (0.0-0.45) x10E3/uL Baso # (Auto) 0.0 0.0 (0.0-0.2) x10E3/uL Comprehensive Metabolic Panel 12/29/22 12/30/22 Range/Units 22:20 06:45 Sodium 126 L 126 L (136-145) mmol/L Potassium 4.2 4.4 (3.5-5.1) mmol/L Chloride 86 L 88 L (98-107) mmol/L Carbon Dioxide 25.8 25.0 (21.0-31.0) mmol/L BUN 76 H 81 H (7-25) mg/dL Creatinine 4.76 H 5.26 H D (0.60-1.20) mg/dL Glucose 144 H 146 H (70-100) mg/dL Calcium 10.2 9.9 (8.6-10.3) mg/dL AST 21 19 (13-39) U/L ALT 26 23 (7-52) U/L Alkaline Phosphatase 146 H 159 H (34-104) U/L Total Protein 6.9 6.0 L (6.4-8.9) gm/dL Albumin 3.2 L 3.0 L (3.5-5.7) gm/dL Intake and Output 12/30/22 12/30/22 12/30/22 07:59 15:59 23:59 Intake Total 860 / 860 Output Total 2503 / 2503 Balance -1643 / -1643 Intake: IV 500 / 500 Sodium Chloride 0.9% 1,000 ml 1 500 / 500 ,000 ml @ As Directed MISCELLANE .Q0M PRN Rx#: [id number] Oral 360 / 360 Output: Urine 0 / 0 Dialysis Output 2503 / 2503 Other: # Bowel Movements 1 Weight 63.4 kg Date of Last Bowel Movement 12/27/22 12/30/22 12/30/22 Patient Weight 12/30/22 23:59 Weight 63.4 kg Lab 12/29/22 22:20 PT 12.2 INR 1.0 APTT 27.1 A&P - Cardiology (1) Symptomatic bradycardia: Code(s): R00.1 - Bradycardia, unspecified (2) Generalized weakness: Code(s): R53.1 - Weakness (3) Fever: Code(s): R50.9 - Fever, unspecified (4) Pain in joints: Code(s): M25.50 - Pain in unspecified joint (5) ESRD (end stage renal disease): Code(s): N18.6 - End stage renal disease Plan Ms. Wilson is a 77 year old female with PMH significant for CAD status post PCI x1 about 10 years ago in [place], ESRD on HD, hypertension, hyperlipidemia, CHF, COPD on 3 L nasal cannula who has had 2 recent admissions for syncope and nonsustained VT. During the last visit she was discharged home on amiodarone load for VT and with a 30-day event monitor. She presents again with severe weakness and lethargy associated with shortness of breath. She was found to be febrile in the ED with temperature 100.6. She was also noted to be bradycardic in the 40s. EKG showed sinus bradycardia with first- degree AV block. Labs also significant for hemoglobin of 8.8. Blood cultures were drawn. Amiodarone was held due to bradycardia. Patient reports taking amiodarone 400 mg twice daily for 2 weeks and was down tothe 200 mg daily dose. She denies palpitations or syncope prior to presentation. She has completed her event monitor and she states that the monitor is physically at home. Assessment: Weakness and fatigue Possible Sepsis Anemia Sinus bradycardia Hx of Nonsustained VT ESRD on HD CAD status post PCI Hypertension Hyperlipidemia Recommendations: - Advised pt to have family drop off the event monitor to cardiac diagnostics for evaluation of heart rhythm while at home. - Will resume amiodarone 200mg daily - Avoid AVN blockers in the setting of bradycardia - Recent ECHO showed EF 50-55% with mild to moderate - Continue telemetry monitoring. - Will follow. Documented By: Edie Michel MD 12/30/22 1235 Signed By: <Electronically signed by Edie Michel MD> 12/30/222048 [facility] Work Phone: 1([phone] 587-509911-20-2023 Consult note Author Narinder Toussaint [facility] December 30, 2022 12:46pm Note Date/Time December 30, 2022 12:46pm [facility] [address] [place] [address] Nephrology Consult Note Signed Patient: Cinthya Wilson MR#: [id number] : 1945 Acct:[id number] Age/Sex: 77 / F Adm Date: 3 Loc: Room: [address] [place] [address] Type: ADM IN Attending Dr: Tatiana Loya MD Copies to: MD Lily Duran II, MD Essam B Elashi, MD~ Providers Consult Date: 12/30/22 Requesting Provider: Tatiana Loya MD Primary Care Provider: Lily Aldrich II, MD HPI Reason for Consult: Management of ESRD and dialysis during hospital stay History of Present Illness: Ms. 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 Patient currently gets dialysis at [facility] dialysis unit on MWF schedule. Patient had recent admission on December 07 for syncopal episode and she was found to have episodes of nonsustained V. tach with prolonged QT interval. She was evaluated by cardiology on several occasions, first carvedilol switched to metoprolol however because of bradycardia and persistent current nonsustained V. tach, she was started on amiodarone with holding metoprolol. Patient was informed that she will need a pacemaker as outpatient and she was supposed to follow-up with cardiology by the end of this month. Evaluation in ER showed bradycardia 30s to40/min. Hemoglobin was down to 8.5 g/dL compared to 10.4 on December 16. Patient is not on anticoagulation. Patient came to the ER because of persistent weakness and almost fell just getting out of the bed to the bedside commode. She stated that she has pain allover her body involving the joints and bone. Recently her narcotics was upgraded to oxycodone every 6 hours. Patient has COPD with chronic hypoxemic respiratory failure on 3 L oxygen at home. Patient is due for dialysis today hence nephrology was consulted. Patient is being seen and examined in the ICU on dialysis. She is awake howevershe has mild confusion. Patient receiving oxycodone as well and recently she was prescribed gabapentin. She stated that she takes oxycodone for arthritic pain. Globin is down to 8.5 g/dL stated above. He has a history of GERD however no history of peptic ulcer disease. She is not on any nonsteroidal anti-inflammatory drugs. Platelet count 386. She has elevated ferritin with iron saturation below 20%. Patient has decreased appetite. She is cachectic and she is losing weight. No edema however BNP is chronically elevated 1758. Albumin 3. COVID-19 was negative. Patient denies any nausea or vomiting. No chest pain. He has a chronic shortness of breath that is not different from baseline Review of Systems Review of Systems All other systems reviewed & are negative unless noted below or in HPI Constitutional Constitutional: Reports system reviewed and no additional complaints, except as documented Cardiovascular Cardiovascular: Reports system reviewed and no additional complaints, except as documented Respiratory Respiratory: Reports system reviewed and no additional complaints, except as documented Gastrointestinal Gastrointestinal: Reports system reviewed and no additional complaints, except as documented Neurologic Neurologic: Reports system reviewed and no additional complaints, except as documented Hematologic/Lymphatic Hematologic/Lymphatic: Reports system reviewed and no additional complaints, except as documented [facility] Medical History Anemia Anxiety Anxiety and depression Arthritis AV fistula left CAD (coronary artery disease) Cataract had bilateral PHACO Cervical spinal stenosis CHF (congestive heart failure) Chronic back pain Chronic kidney disease COPD (chronic obstructive pulmonary disease) Diabetes ESRD (end stage renal disease) GERD (gastroesophageal reflux disease) HTN (hypertension) Hyperlipidemia Insomnia Irregular heart rhythm prior to stent placement per pt report Lumbosacral spondylolysis LVH (left ventricular hypertrophy) Neck pain with history of cervical spinal surgery Neuropathy right thigh and feet Pneumonia Polymyalgia Skin cancer mohs procedure for removal Sleep apnea Surgical History H/O heart artery stent History of appendectomy History of back surgery lumbar History of x2 History of carpal tunnel release bilateral History of coronary angioplasty with insertion of stent History of D&C History of shoulder surgery rt shoulder History of tonsillectomy History of total abdominal hysterectomy and bilateral salpingo-oophorectomy Family History Father Heart disease Cancer Mother Cancer Diabetes Social History Smoking Status: Never smoker Substance Use Type: None Social History Comments: adult son Meds Medications & Allergies Allergies lisinopril Allergy (Verified 12/06/22 18:31) Cough Home Medications atorvastatin 40 mg tablet 40 mg PO QPM 11/19/16 [History Confirmed 12/29/22] multivitamin 1 tab PO DAILY 09/07/19 [History Confirmed 12/29/22] aspirin 81 mg tablet,delayed release 81 mg PO DAILY 11/25/19 [History Confirmed 12/29/22] cholecalciferol (vitamin D3) 25 mcg (1,000 unit) tablet (Vitamin D3) 25 mcg PO DAILY 11/25/19 [History Confirmed 12/29/22] citalopram 40 mg tablet 40 mg PO DAILY 11/25/19 [History Confirmed 12/29/22] albuterol sulfate 0.63 mg/3 mL solution for nebulization 0.63 mg inhalation QID PRN SOB 06/26/21 [History Confirmed 12/29/22] dextrose 40 % oral gel (Glutose-15) 0.6 g PO PRN PRN Hypoglycemia #112.5 grams 11/20/21 [Rx Confirmed 12/29/22] docusate sodium 100 mg capsule 100 mg PO BID #60 caps 11/20/21 [Rx Confirmed 12/29/22] insulin aspart U-100 100 unit/mL (3 mL) subcutaneous pen (Novolog FlexPen U-100 Insulin aspart) 1 sliding scale dose subcut TID.WM.HS #15 mL 11/20/21 [Rx Confirmed 12/29/22] pen needle, diabetic 32 gauge x 5/32 (BD Ultra-Fine Lexis Pen Needle) #100 ea 11/20/21 [Rx Confirmed 12/13/22] calcium acetate(phosphat bind) 667 mg capsule 667 mg PO TID.WITH.MEALS 60 days #240 caps 02/26/22 [Rx Confirmed 12/29/22] pantoprazole 40 mg tablet,delayed release 40 mg PO DAILY 05/17/22 [History Confirmed 12/29/22] diclofenac sodium 1 % topical gel (Voltaren Arthritis Pain) 4 g topical QID #0 grams 10/31/22 [Rx Confirmed 12/29/22] furosemide 20 mg tablet 60 mg PO BID 30 days #180 tabs 10/31/22 [Rx Confirmed 12/29/22] fluticasone fur. 100 mcg-umeclid 62.5 mcg-vilant 25 mcg inhalat.powder (Trelegy Ellipta) 1 ea inhalation DAILY 12/06/22 [History Confirmed 12/29/22] oxycodone-acetaminophen 5 mg-325 mg tablet 1 tab PO Q4-6H PRN Pain 12/06/22 [History Confirmed 12/29/22] pramipexole 0.5 mg tablet 0.5 mg PO HS 12/06/22 [History Confirmed 12/29/22] midodrine 5 mg tablet 5 mg PO TID PRN Hypotension 12/07/22 [History Confirmed 12/29/22] darbepoetin theodore in polysorbat 60 mcg/mL in polysorbate injection (Aranesp) mcg 12/29/22 [History] fluticasone fur. 100 mcg-umeclid 62.5 mcg-vilant 25 mcg inhalat.powder (Trelegy Ellipta) inhalation 12/29/22 [History] insulin lispro 100 unit/mL subcutaneous pen (Humalog KwikPen (U-100) Insulin) subcut 12/29/22 [History] ondansetron 4 mg disintegrating tablet 4 mg PO Q6H PRN Nausea 12/29/22 [History Confirmed 12/29/22] pramipexole 0.5 mg tablet (Mirapex) 0.5 mg PO QHS 12/29/22 [History Confirmed 12/29/22] Active Medications: Active Medications Acetaminophen (Acetaminophen 325 Mg Tablet) 650 mg PO Q6HR PRN PRN Reason: Pain Scale 1 - 3 or fever Stop: 12/30/23 02:48 Albuterol (Albuterol Neb 2.5 Mg/3 Ml Vial.Neb) 0.63 mg INHALATION QID PRN PRN Reason: Shortness Of Breath Stop: 12/30/23 03:52 Atorvastatin Calcium (Atorvastatin 40 Mg Tablet) 40 mg PO QPM YESSENIA Stop: 12/30/23 20:59 Bisacodyl (Bisacodyl 5 Mg Tablet.Dr) 5 mg PO BID PRN PRN Reason: Constipation Stop: 12/30/23 03:22 Calcium Acetate (Calcium Acetate 667 Mg Capsule) 667 mg PO TID.WITH.MEALS YESSENIA Stop: 12/30/23 07:59 Last Admin: 12/30/22 08:02 Dose: 667 mg Citalopram Hydrobromide (Citalopram 40 Mg Tablet) 40 mg PO DAILY YESSENIA Stop: 12/30/23 08:59 Last Admin: 12/30/22 08:20 Dose: 40 mg Darbepoetin Theodore (Darbepoetin Theodore In Polysorbat 60 Mcg/Ml Vial) 80 mcg IV- PUSHWE [facility] Stop: 01/01/24 08:28 Dextrose (Dextrose 50% In Water 25 Gm/50 Ml Syringe) 0 gm IV-PUSH PRN PRN PRN Reason: Hypoglycemia Stop: 12/30/23 03:22 Diclofenac Sodium (Diclofenac Sodium 1% Gel 100 Gm Tube) 4 gm TOPICAL QID YESSENIA Stop: 12/30/23 08:59 Last Admin: 12/30/22 08:20 Dose: 4 gm Docusate Sodium (Docusate 100 Mg Capsule) 100 mg PO BID YESSENIA Stop: 12/30/23 08:59 Last Admin: 12/30/22 08:20 Dose: 100 mg Ferric Sodium Gluconate Complex (Sodium Ferric Gluconat/Sucrose 62.5 Mg/5 Ml Vial) 125 mg IV-PUSH Mo@0900 YESSENIA Stop: 12/30/23 08:59 Last Admin: 12/30/22 10:03 Dose: 125 mg Furosemide (Furosemide 20 Mg Tablet) 60 mg PO BID@0800,1700 [facility] Stop: 12/30/23 08:59 Last Admin: 12/30/22 08:20 Dose: 60 mg Glucose (Dextrose 40% Gel 15 Gm Tube) 0.6 gm PO PRN PRN PRN Reason: Hypoglycemia Stop: 12/30/23 03:21 Glucose (Dextrose 40% Gel 15 Gm Tube) 0 gm PO PRN PRN PRN Reason: Hypoglycemia Stop: 12/30/23 03:22 Heparin Sodium (Porcine) (Heparin 10,000 Unit/10 Ml Vial) 2,000 unit IV PRN PRN PRN Reason: Dialysis Stop: 12/30/23 08:28 Last Admin: 12/30/22 10:02 Dose: 2,000 unit Heparin Sodium (Porcine) (Heparin 10,000 Unit/10 Ml Vial) 1,000 unit IV PRN PRN PRN Reason: Dialysis Stop: 12/30/23 08:28 Last Admin: 12/30/22 10:02 Dose: 1,000 unit Sodium Chloride (0.9% Sodium Chloride 1,000 Ml) 1,000 mls @ 0 mls/hr MISCELLANE.Q0M PRN PRN Reason: Dialysis Stop: 12/30/23 08:28 Last Infusion: 12/30/22 10:05 Dose: Infused Insulin Aspart (Insulin Aspart 300 Units/3 Ml Insuln.Pen) 0 units SUBCUT TID.WM.HS [facility]; Protocol Stop: 12/30/23 07:59 Last Admin: 12/30/22 11:35 Dose: 2 units Midodrine (Midodrine 5 Mg Tablet) 5 mg PO TID.7A.12P.5P PRN PRN Reason: Hypotension Stop: 12/30/23 03:21 Multivitamins (Multivitamin 1 Tab Tablet) 1 tab PO DAILY [facility] Stop: 12/30/23 08:59 Last Admin: 12/30/22 08:20 Dose: 1 tab Oxycodone/Acetaminophen (Oxycodone/Acetaminophen 5-325 Mg Tablet) 1 tab PO [id number] PRN Reason: Pain Pantoprazole Sodium (Pantoprazole 40 Mg Tablet.Dr) 40 mg PO DAILY [facility] Stop: 12/30/23 08:59 Last Admin: 12/30/22 08:20 Dose: 40 mg Pramipexole Dihydrochloride (Pramipexole 0.5 Mg Tablet) 0.5 mg PO QHS YESSENIA Stop: 12/30/23 21:59 Saliva Substitute (Saliva Stimulant Agents Comb.3 44.3 Ml [place]) 0 ml MUCOUS MEM PRN PRN PRN Reason: Dry Mouth Stop: 12/30/23 02:58 Sennosides (Sennosides 8.6 Mg Tablet) 2 tab PO QHS YESSENIA Stop: 12/30/23 21:59 Sodium Chloride (Sodium Chloride 0.9 % 10 Ml Syringe) 0 ml IV-PUSH PRN PRN PRN Reason: Flush Stop: 12/29/23 22:02 Last Admin: 12/30/22 10:03 Dose: 10 ml Sodium Chloride (Sodium Chloride 0.9 % 10 Ml Syringe) 0 ml IV-PUSH QSHIFT YESSENIA Stop: 12/30/23 05:59 Last Admin: 12/30/22 06:29 Dose: 10 ml Sodium Chloride (Sodium Chloride 0.9 % 10 Ml Syringe) 0 ml IV-PUSH PRN PRN PRN Reason: Flush Stop: 12/30/23 08:28 Vitamin D (Cholecalciferol 25 Mcg (1,000 Units) Tablet) 25 mcg PO DAILY YESSENIA Stop: 12/30/23 08:59 Last Admin: 12/30/22 08:20 Dose: 25 mcg Exam Physical Exam Vital Signs: Temp Pulse Resp BP Pulse Ox O2 Del Method O2 Flow Rate 36.3 C L 54 L 29 H 113/68 93 L Nasal Cannula 3 12/30/22 09:20 12/30/22 12:01 12/30/22 11:00 12/30/22 12:01 12/30/22 11:00 12/30/22 11:00 12/30/22 11:00 Narrative: Constitutional: Up in the bed, awake with no respiratory distress. HEENT: She has mild pallor. Mucous membranes are moist. Cardiovascular: RRR, normal S1-S2, no gallop or rub, No JVD Respiratory: Diminished breath sounds. No crackles or wheezes. Gastrointestinal: Soft, non tender, positive bowel sounds. No palpable organs or masses Extremities: 1+ edema Skin: No rashes or bruises Musculoskeletal: Left shoulder tenderness. No swellings or inflammation Neurology: Awake, alert, oriented ?3, No focal motor or sensory deficits. Psych: Normal mood and affect Vascular access: Left arm AV fistula with good thrill. Results Labs 12/30/22 06:45 12/30/22 06:45 Labs: 12/29/22 12/30/22 22:20 06:45 BUN 76 H 81 H Creatinine 4.76 H 5.26 H D Iron Saturation 19.4 L Albumin 3.2 L 3.0 L Radiology Impressions Impressions - last 24 hours: Impressions Chest X-Ray 12/29/22 22:06 IMPRESSION: NO SIGNIFICANT CHANGE IN CHEST FINDINGS COMPARED TO THE 12/13/2022 STUDY. Impression dictated by: Quintin Matamoros Jr., D.O.12/30/2022 9:27 AM Dictation Location: [facility]--12 Abdomen X-Ray 12/30/22 02:49 IMPRESSION: MODERATE STOOL BURDEN IS SEEN INVOLVING THE LEFT COLON WITH GASEOUS DISTENTION OF PRESUMED RIGHT-SIDED COLONIC LOOPS. FINDINGS MAY RELATE TO CONSTIPATION. IF UNDERLYING OBSTRUCTION IS OF CLINICAL CONCERN, FURTHER EVALUATION WITH CT IS RECOMMENDED. Impression dictated by: Quintin Matamoros Jr., D.O.12/30/2022 9:28 AM Dictation Location: [facility] Liver Ultrasound 12/30/22 03:00 IMPRESSION: NO ACUTE PROCESS. . Impression dictated by: Quintin Matamoros Jr., D.O.12/30/2022 10:31 AM Dictation Location: [place] [address] Any impression(s) listed above is documentation that was entered by the reading physician into a diagnostic report(s) for Cinthya Wilson. I have reviewed the report(s) and am incorporating any findings in the treatment plan of this patient where applicable. 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 She gets dialysis admitted for dialysis unit on MWF schedule. Patient had PD for short time 2019 for DAVID on top of CKD and cardiorenal syndrome however renal function did recover. (2) Anemia of renal disease: Assessment/Problem Details: Hemoglobin did drop with no obvious bleeding. She has adequate iron stores however transferrin saturation below 20%. (3) Type 2 diabetes mellitus with diabetic chronic kidney disease: Assessment/Problem Details: She has insulin-dependent type 2 diabetes mellitus. (4) Benign hypertension with end-stage renal disease: Assessment/Problem Details: Blood pressure did improve on dialysis and possibly progression of underlying CAD/CHF. He is appears to be a euvolemic however respiratory rate 30 and she has elevated BNP that seems to be chronic.. She occasionally takes midodrine with dialysis (5) Secondary hyperparathyroidism: Assessment/Problem Details: She has a secondary hyperparathyroidism due to the ESRD and hyperphosphatemia. Currently take calcium acetate at home. (6) Pain in joints: Assessment/Problem Details: Patient has generalized bone and joints pain. She is currently on oxycodone with intermittent confusion. Patient has a history of polymyalgia and she has aprevious back surgery. Plan * Hemodialysis today per chronic orders for 4 hours, 2K bath. We will try 2.5 L ultrafiltration as tolerated. Patient on low-dose heparin 2000/1000. She has normal INR and she is not on anticoagulation. * Patient on Aranesp with hemodialysis weekly for anemia. We will increase the dose to 80 mcg weekly. Considering the borderline concerning saturation less than 20%, will add ferric sodium gluconate 125 mcg weekly with dialysis. * All medications reviewed. Patient not on beta-blockers or amiodarone anymore. Cardiology will evaluate she may need pacemaker at this point considering the recurrent bradycardia suggestive of sick sinus syndrome. Patient has mild confusion with possibly excessive narcotics. Considering history of polymyalgia low-dose prednisone or even nonsteroidal anti-inflammatory drugs can be tried to decrease the need for narcotics. * Monitor daily intake and output and renal panel. We will adjust medications and dialysis prescriptions accordingly. I appreciate this consultation we will be happy to follow the patient with you during hospital stay. Documented By: Narinder Toussaint MD 12/30/22 1223 Signed By: <Electronically signed by MD Narinder Toussaint> 12/30/22 1246 [facility] Work Phone: [phone] 868-617911-20-2023 Progress note Author Tatiana Loya [facility] December 30, 2022 11:46am Note Date/Time December 30, 2022 11:46am [facility] [address] [place] [address] Hospitalist Progress Note Signed Patient: Cinthya Wilson MR#: [id number] : 1945 Acct:[id number] Age/Sex: 77 / F Adm Date: 3 Loc: 4C Room: [address] [place] [address] Type: ADM IN Attending Dr: Tatiana Loya MD Copies to: ~ Date of Service: 12/30/2022 Exam Physical Exam Vital Signs: Temp Pulse Resp BP Pulse Ox O2 Del Method O2 Flow Rate 97.4 F L 54 L 29 H 118/55 L 93 L Nasal Cannula 3 12/30/22 09:20 12/30/22 11:00 12/30/22 11:00 12/30/22 11:00 12/30/22 11:00 12/30/22 11:00 12/30/22 11:00 Narrative: General patient laying in bed in no acute distress alert awake oriented x3 HEENT PERRLA Neck supple no JVD no carotid bruit CVS S1-S2 regular rate and rhythm no murmur no gallop Chest clear to auscultation percussion Abdomen soft bowel sounds normoactive no rebound no guarding Extremities no stenosis no clubbing no edema Musculoskeletal exam normal no joint effusion Neurologic exam oriented x3 alert awake no focal left Psychiatry: Normal insight and judgment Skin: no rash or lesions Objective Lab Results 12/30/22 06:45 12/30/22 06:45 Microbiology Results Microbiology 12/30/22 09:05 Stool Stool Occult Blood (TRINITY) - Final 12/30/22 06:50 Nasopharyngeal Respiratory Panel (PCR) - Final 12/29/22 22:12 Nasopharyngeal SARS-CoV-2, Influenza & RSV (PCR) - Final Meds Allergies and Active Meds Allergies lisinopril Allergy (Verified 12/06/22 18:31) Cough Active Meds: Active Medications Generic Name Dose Route Start Last Admin Trade Name Freq PRN Reason Stop Dose Admin Acetaminophen 650 mg 12/30/22 02:49 Acetaminophen 325 Mg Tablet PO 12/30/23 02:48 Q6HR PRN Pain Scale 1 - 3 or fever Albuterol 0.63 mg 12/30/22 03:53 Albuterol Neb 2.5 Mg/3 Ml Vial.Neb INHALATION 12/30/23 03:52 QID PRN Shortness Of Breath Atorvastatin Calcium 40 mg 12/30/22 21:00 Atorvastatin 40 Mg Tablet PO 12/30/23 20:59 QPM YESSENIA Bisacodyl 5 mg 12/30/22 03:23 Bisacodyl 5 Mg Tablet. PO 12/30/23 03:22 BID PRN Constipation Calcium Acetate 667 mg 12/30/22 08:00 12/30/22 08:02 Calcium Acetate 667 Mg Capsule PO 12/30/23 07:59 667 mg TID.WITH.MEALS YESSENIA Administration Citalopram Hydrobromide 40 mg 12/30/22 09:00 12/30/22 08:20 Citalopram 40 Mg Tablet PO 12/30/23 08:59 40 mg DAILY YESSENIA Administration Darbepoetin Theodore 80 mcg 01/01/23 08:29 Darbepoetin Theodore In Polysorbat 60 Mcg/Ml Vial IV-PUSH 01/01/24 08:28 WE YESSENIA Dextrose 0 gm 12/30/22 03:23 Dextrose 50% In Water 25 Gm/50 Ml Syringe IV-PUSH 12/30/23 03:22 PRN PRN Hypoglycemia Diclofenac Sodium 4 gm 12/30/22 09:00 12/30/22 08:20 Diclofenac Sodium 1% Gel 100 Gm Tube TOPICAL 12/30/23 08:59 4 gm QID YESSENIA Administration Docusate Sodium 100 mg 12/30/22 09:00 12/30/22 08:20 Docusate 100 Mg Capsule PO 12/30/23 08:59 100 mg BID YESSENIA Administration Ferric Sodium Gluconate Complex 125 mg 12/30/22 09:00 12/30/22 10:03 Sodium Ferric Gluconat/Sucrose 62.5 Mg/5 Ml Vial IV-PUSH 12/30/23 08:59 125mg Mo@0900 YESSENIA Administration Furosemide 60 mg 12/30/22 09:00 12/30/22 08:20 Furosemide 20 Mg Tablet PO 12/30/23 08:59 60 mg BID@0800,1700 YESSENIA Administration Glucose 0.6 gm 12/30/22 03:22 Dextrose 40% Gel 15 Gm Tube PO 12/30/23 03:21 PRN PRN Hypoglycemia Glucose 0 gm 12/30/22 03:23 Dextrose 40% Gel 15 Gm Tube PO 12/30/23 03:22 PRN PRN Hypoglycemia Heparin Sodium (Porcine) 2,000 unit 12/30/22 08:29 12/30/22 10:02 Heparin 10,000 Unit/10 Ml Vial IV 12/30/23 08:28 2,000 unit PRN PRN Administration Dialysis Heparin Sodium (Porcine) 1,000 unit 12/30/22 08:29 12/30/22 10:02 Heparin 10,000 Unit/10 Ml Vial IV 12/30/23 08:28 1,000 unit PRN PRN Administration Dialysis Sodium Chloride 1,000 mls @ 0 mls/hr 12/30/22 08:29 12/30/22 10:05 0.9% Sodium Chloride 1,000 Ml MISCELLANE 12/30/23 08:28 Infused .Q0M PRN Infusion Dialysis As Directed Insulin Aspart 0 units 12/30/22 08:00 12/30/22 08:02 Insulin Aspart 300 Units/3 Ml Insuln.Pen SUBCUT 12/30/23 07:59 Not Given TID.WM.HS [facility] Protocol Midodrine 5 mg 12/30/22 03:22 Midodrine 5 Mg Tablet PO 12/30/23 03:21 TID.7A.12P.5P PRN Hypotension Multivitamins 1 tab 12/30/22 09:00 12/30/22 08:20 Multivitamin 1 Tab Tablet PO 12/30/23 08:59 1 tab DAILY YESSENIA Administration Oxycodone/Acetaminophen 1 tab 12/30/22 03:22 Oxycodone/Acetaminophen 5-325 Mg Tablet PO Q6HR PRN Pain Pantoprazole Sodium 40 mg 12/30/22 09:00 12/30/22 08:20 Pantoprazole 40 Mg Tablet.Dr PO 12/30/23 08:59 40 mg DAILY YESSENIA Administration Pramipexole Dihydrochloride 0.5 mg 12/30/22 22:00 Pramipexole 0.5 Mg Tablet PO 12/30/23 21:59 QHS [facility] Saliva Substitute 0 ml 12/30/22 02:59 Saliva Stimulant Agents Comb.3 44.3 Ml [place] MUCOUS MEM 12/30/23 02:58 PRN PRN Dry Mouth Sennosides 2 tab 12/30/22 22:00 Sennosides 8.6 Mg Tablet PO 12/30/23 21:59 QHS YESSENIA Sodium Chloride 0 ml 12/29/22 22:03 12/30/22 10:03 Sodium Chloride 0.9 % 10 Ml Syringe IV-PUSH 12/29/23 22:02 10 ml PRN PRN Administration Flush Sodium Chloride 0 ml 12/30/22 06:00 12/30/22 06:29 Sodium Chloride 0.9 % 10 Ml Syringe IV-PUSH 12/30/23 05:59 10 ml QSHIFT YESSENIA Administration Sodium Chloride 0 ml 12/30/22 08:29 Sodium Chloride 0.9 % 10 Ml Syringe IV-PUSH 12/30/23 08:28 PRN PRN Flush Vitamin D 25 mcg 12/30/22 09:00 12/30/22 08:20 Cholecalciferol 25 Mcg (1,000 Units) Tablet PO 12/30/23 08:59 25 mcg DAILY YESSENIA Administration A&P - Hospitalist Assessment/Plan (1) Weakness: (2) Swollen tongue: (3) Symptomatic bradycardia: (4) Anemia: (5) Diabetes: (6) COPD (chronic obstructive pulmonary disease): (7) CAD (coronary artery disease): (8) Recurrent right pleural effusion: (9) Type 2 diabetes mellitus with diabetic chronic kidney disease: (10) Fever: Plan Assessment/Plan. This is a 77-year-old woman came emergency room today because she is getting very weak at home. She is also having shortness of breath. Things were gettingmuch worse today during the daytime on Friday. Reportedly she slept all day. She was having a little bit of a fever. In the emergency room she seemed to have pain everywhere throughout her body. She was very weak. She almost fell just getting out of bed to the bedside commode. She is a longstanding hemodialysis patient for end-stage renal disease. She hasa history of coronary artery disease status post stenting about 10 years ago andhas heart failure with reduced ejection fraction. She also has hypertension, she has COPD and chronic hypoxic respiratory failure chronically using 3 L oxygen by nasal cannula, she has GERD, and she has diabetes mellitus type 2 on insulin. She has had recent stays here in the hospital from December 08 through December 09when she was having a wide-complex rhythm and was evaluated by cardiology. She returned on December 13 through December 16 with bradycardia. At that time cardiology recommended amiodarone to suppress bigeminy and short nonsustained runs of ventricular tachycardia but they also recommended cessation of her beta-madhu due to bradycardia. She is not anticoagulated. She is chronically hypotensive and requires midodrine especially on dialysis days. Upon arrival up to the medical floor it was noted that her heart rate is very slow at about 43 bpm. Nursing staff on the medical floor also noticed that her tongue seems to be enlarged and somewhat swollen. Patient indicates that she had noticed that her tongue was bigger because she was biting it more often. She made an appointment to see a dentist about this in a couple weeks. She was started on buspirone 10 mg daily and gabapentin 100 mg p.o. twice daily just on December 26, so that was about 3 to 4 days ago. Also, looking at her OARRS report, she was upgraded from chronic use of hydrocodone product such as [place] 10/325 up to Percocet 5/325 enough for 4 tablets a day. Looking at her OARRS report I never saw her picking up gabapentin before. Notably her hemoglobin in the emergency room today was only 8.8. When she left the hospital on December 16 it was in its baseline of 10.4. The patient states that she has been constipated and has not moved her bowels for the last 4 days. A/P Sinus bradycardia Seen and examined Not feeling well Feeling very weak Slight nausea No chest pain or shortness of breath Now on dialysis Heart rate in the 40s Beta-madhu was held Amiodarone was held Cardiology consulted She may need pacemaker Profound fatigue and weakness secondary to bradycardia Cardiology was consulted Swollen/enlarged tongue. Gabapentin and BuSpar were held Anemia of chronic disease : Hemoglobin and hematocrit was CAD: Aspirin daily/cardiology was consulted Hypertension: Controlled Hyperlipidemia: Continue statin Diabetes type: Insulin sliding scale Obesity: Lifestyle modification Sleep apnea: CPAP GERD: PPI Documented By: Tatiana Loya MD 12/30/22 1132 Signed By: <Electronically signed by Tatiana Loya MD> 12/30/22 1146 [facility] Work Phone: [phone] 243-271411-20-2023 History and physical note Author Carlton Mtz [facility] December 30, 2022 3:22am Note Date/Time December 30, 2022 3:06am [facility] [address] [place] [address] Hospitalist H&P Signed Patient: Cinthya Wilson MR#: [id number] : 1945 Acct:[id number] Age/Sex: 77 / F Adm Date: 3 Loc: Room: [address] [place] [address] Type: ADM IN Attending Dr: Carlton Mtz DO Copies to: MD Carlton Bourgeois II, DO~ HPI DATE OF EXAMINATION: 12/30/22 CHIEF COMPLAINT: fatigue, weakness, abdominal bloating. HISTORY OF PRESENT ILLNESS: This is a 77-year-old woman came emergency room today because she is getting very weak at home. She is also having shortness of breath. Things were gettingmuch worse today during the daytime on Friday. Reportedly she slept all day. She was having a little bit of a fever. In the emergency room she seemed to have pain everywhere throughout her body. She was very weak. She almost fell just getting out of bed to the bedside commode. She is a longstanding hemodialysis patient for end-stage renal disease. She hasa history of coronary artery disease status post stenting about 10 years ago andhas heart failure with reduced ejection fraction. She also has hypertension, she has COPD and chronic hypoxic respiratory failure chronically using 3 L oxygen by nasal cannula, she has GERD, and she has diabetes mellitus type 2 on insulin. She has had recent stays here in the hospital from December 08 through December 09when she was having a wide-complex rhythm and was evaluated by cardiology. She returned on December 13 through December 16 with bradycardia. At that time cardiology recommended amiodarone to suppress bigeminy and short nonsustained runs of ventricular tachycardia but they also recommended cessation of her beta-madhu due to bradycardia. She is not anticoagulated. She is chronically hypotensive and requires midodrine especially on dialysis days. Upon arrival up to the medical floor it was noted that her heart rate is very slow at about 43 bpm. Nursing staff on the medical floor also noticed that her tongue seems to be enlarged and somewhat swollen. Patient indicates that she had noticed that her tongue was bigger because she was biting it more often. She made an appointment to see a dentist about this in a couple weeks. She was started on buspirone 10 mg daily and gabapentin 100 mg p.o. twice daily just on December 26, so that was about 3 to 4 days ago. Also, looking at her OARRS report, she was upgraded from chronic use of hydrocodone product such as [place] 10/325 up to Percocet 5/325 enough for 4 tablets a day. Looking at her OARRS report I never saw her picking up gabapentin before. Notably her hemoglobin in the emergency room today was only 8.8. When she left the hospital on December 16 it was in its baseline of 10.4. The patient states that she has been constipated and has not moved her bowels for the last 4 days. Review of Systems Review of Systems Review of systems: 10 systems are reviewed and are negative except as mentioned elsewhere in the documentation. [facility] Medical History Anemia Anxiety Anxiety and depression Arthritis AV fistula left CAD (coronary artery disease) Cataract had bilateral PHACO Cervical spinal stenosis CHF (congestive heart failure) Chronic back pain Chronic kidney disease COPD (chronic obstructive pulmonary disease) Diabetes ESRD (end stage renal disease) GERD (gastroesophageal reflux disease) HTN (hypertension) Hyperlipidemia Insomnia Irregular heart rhythm prior to stent placement per pt report Lumbosacral spondylolysis LVH (left ventricular hypertrophy) Neck pain with history of cervical spinal surgery Neuropathy right thigh and feet Pneumonia Polymyalgia Skin cancer mohs procedure for removal Sleep apnea Surgical History H/O heart artery stent History of appendectomy History of back surgery lumbar History of x2 History of carpal tunnel release bilateral History of coronary angioplasty with insertion of stent History of D&C History of shoulder surgery rt shoulder History of tonsillectomy History of total abdominal hysterectomy and bilateral salpingo-oophorectomy Family History Father Heart disease Cancer Mother Cancer Diabetes Social History Smoking Status: Never smoker Substance Use Type: None Social History Comments: adult son Meds Medications and Allergies Allergies lisinopril Allergy (Verified 12/06/22 18:31) Cough Home Medications atorvastatin 40 mg tablet 40 mg PO QPM 11/19/16 [History Confirmed 12/29/22] multivitamin 1 tab PO DAILY 09/07/19 [History Confirmed 12/29/22] aspirin 81 mg tablet,delayed release 81 mg PO DAILY 11/25/19 [History Confirmed 12/29/22] cholecalciferol (vitamin D3) 25 mcg (1,000 unit) tablet (Vitamin D3) 25 mcg PO DAILY 11/25/19 [History Confirmed 12/29/22] citalopram 40 mg tablet 40 mg PO DAILY 11/25/19 [History Confirmed 12/29/22] albuterol sulfate 0.63 mg/3 mL solution for nebulization 0.63 mg inhalation QID PRN SOB 06/26/21 [History Confirmed 12/29/22] dextrose 40 % oral gel (Glutose-15) 0.6 g PO PRN PRN Hypoglycemia #112.5 grams 11/20/21 [Rx Confirmed 12/29/22] docusate sodium 100 mg capsule 100 mg PO BID #60 caps 11/20/21 [Rx Confirmed 12/29/22] insulin aspart U-100 100 unit/mL (3 mL) subcutaneous pen (Novolog FlexPen U-100 Insulin aspart) 1 sliding scale dose subcut TID.WM.HS #15 mL 11/20/21 [Rx Confirmed 12/29/22] pen needle, diabetic 32 gauge x 5/32 (BD Ultra-Fine Lexis Pen Needle) #100 ea 11/20/21 [Rx Confirmed 12/13/22] calcium acetate(phosphat bind) 667 mg capsule 667 mg PO TID.WITH.MEALS 60 days #240 caps 02/26/22 [Rx Confirmed 12/29/22] pantoprazole 40 mg tablet,delayed release 40 mg PO DAILY 05/17/22 [History Confirmed 12/29/22] diclofenac sodium 1 % topical gel (Voltaren Arthritis Pain) 4 g topical QID #0 grams 10/31/22 [Rx Confirmed 12/29/22] furosemide 20 mg tablet 60 mg PO BID 30 days #180 tabs 10/31/22 [Rx Confirmed 12/29/22] fluticasone fur. 100 mcg-umeclid 62.5 mcg-vilant 25 mcg inhalat.powder (Trelegy Ellipta) 1 ea inhalation DAILY 12/06/22 [History Confirmed 12/29/22] oxycodone-acetaminophen 5 mg-325 mg tablet 1 tab PO Q4-6H PRN Pain 12/06/22 [History Confirmed 12/29/22] pramipexole 0.5 mg tablet 0.5 mg PO HS 12/06/22 [History Confirmed 12/29/22] midodrine 5 mg tablet 5 mg PO TID PRN Hypotension 12/07/22 [History Confirmed 12/29/22] darbepoetin theodore in polysorbat 60 mcg/mL in polysorbate injection (Aranesp) mcg 12/29/22 [History] fluticasone fur. 100 mcg-umeclid 62.5 mcg-vilant 25 mcg inhalat.powder (Trelegy Ellipta) inhalation 12/29/22 [History] insulin lispro 100 unit/mL subcutaneous pen (Humalog KwikPen (U-100) Insulin) subcut 12/29/22 [History] ondansetron 4 mg disintegrating tablet 4 mg PO Q6H PRN Nausea 12/29/22 [History Confirmed 12/29/22] pramipexole 0.5 mg tablet (Mirapex) 0.5 mg PO QHS 12/29/22 [History Confirmed 12/29/22] Exam Physical Exam Vital Signs: Temp Pulse Resp BP Pulse Ox O2 Del Method O2 Flow Rate 98.1 F 63 18 107/42 L 95 Nasal Cannula 3 12/30/22 02:42 12/30/22 02:42 12/30/22 02:42 12/30/22 02:42 12/30/22 02:42 12/30/22 02:42 12/30/22 02:42 Narrative: GEN: Profoundly fatigued. Falls asleep multiple times during the interview andexam. Head: Normal Cephalic, Atraumatic. Eyes: Conjunctiva and sclera clear bilaterally. Nose: External nose and nares normal bilaterally. Mouth: Tongue is moderately enlarged. Mucosa membranes are dry. I do not see any acute erythema. I do not see any thrush. Lips are normal so I do not have a severe suspicion of an anaphylactic reaction. Neck: No JVD. No thyromegaly. No lymphadenopathy. Lungs: Clear to auscultation bilaterally, no wheezing, no crackles. Heart: Regular rate and rhythm, no murmurs, rubs, or gallops. Abdomen: Moderately bloated. This is soft. Difficult to tell if she just has some increased gaseous distention or if there is underlying ascites. Extremities: No swelling or cords in the calves bilaterally, no edema in the ankles bilaterally. Skin: No systemic rashes or lesions. Neuro: When she does speak her speech is clear and normal. Results Lab Results Labs: Laboratory Last Values Corrected WBC 9.6 X10E3/uL (3.8-11.6) 12/29/22 22:20 Uncorrected WBC Count 9.6 x10E3/uL (3.8-11.6) 12/29/22 22:20 RBC 3.10 X10E6/uL (3.60-5.00) L 12/29/22 22:20 Hgb 8.8 g/dL (11.8-15.4) L 12/29/22 22:20 Hct 27.8 % (34.0-46.4) L 12/29/22 22:20 MCV 89.6 fl (80-100) 12/29/22 22:20 MCH 28.4 pg (24.7-34.3) 12/29/22 22:20 MCHC 31.7 g/dL (32.0-35.0) L 12/29/22 22:20 RDW 17.6 % (11.9-15.3) H 12/29/22 22:20 Plt Count 397 x10E3/uL (150-450) 12/29/22 22:20 MPV 7.2 fl (6.3-10.7) 12/29/22 22:20 Neut % (Auto) 71.9 % (.) 12/29/22 22:20 Lymph % (Auto) 12.9 % (.) 12/29/22 22:20 [place]henry % (Auto) 13.9 % (.) 12/29/22 22:20 Eos % (Auto) 1.0 % (.) 12/29/22 22:20 Baso % (Auto) 0.3 % (.) 12/29/22 22:20 Nucleat RBC Rel Count 0.0 /100 WBC (0-0.5) 12/29/22 22:20 Neut # (Auto) 6.9 x10E3/uL (1.8-7.7) 12/29/22 22:20 Lymph # (Auto) 1.2 x10E3/uL (1.00-4.8) 12/29/22 22:20 [place]henry # (Auto) 1.3 x10E3/uL (0.0-0.8) H 12/29/22 22:20 Eos # (Auto) 0.1 x10E3/uL (0.0-0.45) 12/29/22 22:20 Baso # (Auto) 0.0 x10E3/uL (0.0-0.2) 12/29/22 22:20 Monocyte Dist Width 23.39 % (0.00-20.00) H 12/29/22 22:20 PT 12.2 Seconds (9.0-12.9) 12/29/22 22:20 INR 1.0 12/29/22 22:20 APTT 27.1 Seconds (25.1-36.5) 12/29/22 22:20 PHA Creatinine Clear 8.82 12/29/22 22:20 Sodium 126 mmol/L (136-145) L 12/29/22 22:20 Potassium 4.2 mmol/L (3.5-5.1) 12/29/22 22:20 Chloride 86 mmol/L (98-107) L 12/29/22 22:20 Carbon Dioxide 25.8 mmol/L (21.0-31.0) 12/29/22 22:20 Anion Gap 18.4 mEq/L (6.0-15.0) H 12/29/22 22:20 BUN 76 mg/dL (7-25) H 12/29/22 22:20 Creatinine 4.76 mg/dL (0.60-1.20) H 12/29/22 22:20 Est GFR (CKD-EPI) 9.034 mL/Min 12/29/22 22:20 Glucose 144 mg/dL (70-100) H 12/29/22 22:20 Lactic Acid 1.0 mmol/L (0.5-2.2) 12/29/22 22:20 Calcium 10.2 mg/dL (8.6-10.3) 12/29/22 22:20 Total Bilirubin 0.4 mg/dl (0.3-1.0) 12/29/22 22:20 AST 21 U/L (13-39) 12/29/22 22:20 ALT 26 U/L (7-52) 12/29/22 22:20 Alkaline Phosphatase 146 U/L (34-104) H 12/29/22 22:20 Troponin I High Sens 24.0 pg/mL (0.0-15.0) H 12/29/22 22:20 B-Natriuretic Peptide 1358.0 pg/mL (5-100) H 12/29/22 22:20 Total Protein 6.9 gm/dL (6.4-8.9) 12/29/22 22:20 Albumin 3.2 gm/dL (3.5-5.7) L 12/29/22 22:20 Globulin 3.7 gm/dL 12/29/22 22:20 Albumin/Globulin Ratio 0.9 12/29/22 22:20 SARS-CoV-2 Rap RNA(RT-PCR) Negative (Negative) 12/29/22 22:12 Microbiology Results Micro: Microbiology - Results from entire visit 12/29/22 22:12 Nasopharyngeal SARS-CoV-2, Influenza & RSV (PCR) - Final Assessment & Plan Assessment/Plan (1) Weakness: (2) Swollen tongue: (3) Symptomatic bradycardia: (4) Anemia: (5) Diabetes: (6) COPD (chronic obstructive pulmonary disease): (7) CAD (coronary artery disease): (8) Recurrent right pleural effusion: (9) Type 2 diabetes mellitus with diabetic chronic kidney disease: (10) Fever: Plan Assessment/Plan. Profound fatigue and weakness. Multiple etiologies are possible and this is a very debilitated patient who is on end-stage renal disease. Swollen/enlarged tongue. Given the chronicity of starting new medications including buspirone and gabapentin just a few days ago I think these are the most likely etiologies. I will not continue the BuSpar nor the gabapentin at this time. Consult to speech therapy to evaluate the safety of her swallowing. Patient can use sips of water and also Biotene to moisturize her mouth Consideration is given to starting corticosteroids, but I do not want to start this in the setting of possible infection. Report of fever. My biggest concern and end-stage renal disease patient is bacteremia. Blood cultures x2 were taken in the emergency room. Nasal PCR testing was COVID negative as well as negative for influenza A and influenza B as well as RSV I will check a [employer] nasal PCR for more viral pathogens. I will order 2 more blood cultures to be done with her morning labs. She does not seem to make urine so it was not possible to collect a urine sample in the emergency room. Bradycardia. She was recently put on accelerated dosing of amiodarone. At that time though her beta-blockers were stopped due to intolerance to any beta-madhu. At this time I will hold her amiodarone. Consult to cardiology. Anemia. Which left the hospital in December 16 her hemoglobin was 10.4. In the ER today it is 8.8. I will check anemia labs with her morning labs this morning. Type and screen are ordered. Nursing staff to monitor stools closely for any melena. IP vs OBS Justification Based on differential dx, clinical care plan, and risk of adverse events, if untreated, in my clinical judgement this patient requires an acute care setting as: INPATIENT because of an expectation of an over 2 midnight stay. Estimated length of stay (# of days): 5 Documented By: Carlton Mtz DO 301 Signed By: <Electronically signed by Carlton Mtz DO> 12/30/22 032 [facility] Work Phone: [phone] [facility] Chief Complaint: Patient here for 3 mo follow up orthostatic hypotension, aortic valve stenosis, CAD, and hypertension. She has been in and out of the hospital several times since last visit in Sep 2022. Says she was put on amiodarone for HR control. Carvedilol and valsartan were stopped. Denies chest pain and palpitations. Most recent admission was 2 weeks ago and she was transferred from [facility] to [facility] in [place] because her nephrology group is there. HPI: Discharge summary Date of discharge 12/16/2022 Discharge diagnoses Diabetes mellitus with insulin therapy Hypertension Coronary artery disease Nonsustained ventricular tachycardia Ventricular bigeminy Diabetes mellitus End-stage renal disease The patient was admitted with bradycardia, bigeminy and nonsustained ventricular tachycardia. She was seen by cardiology who recommended discontinuation of her beta-madhu and initiation of amiodarone. They did not recommend anticoagulation. Echocardiogram showed normal ejection fraction. The cardiology team did not recommend coronary artery disease evaluation at this time. They cleared the patient for discharge. She has been stable since discharge. No further syncope. No chest pain, shortness of breath is severe and stable. She has severe COPD and is seeing pulmonology. Cardiology ROS: Review of Systems Constitutional: Positive for malaise/fatigue. Cardiovascular: Positive for dyspnea on exertion and near-syncope. Respiratory: Positive for cough and shortness of breath. Musculoskeletal: Positive for arthritis, back pain, joint pain and muscle weakness. Neurological: Positive for dizziness and light-headedness. All other systems reviewed and are negative. Past Medical History She has a past medical history of CAD (coronary artery disease) (09/23/2021), COPD (chronic obstructive pulmonary disease) ([facility]/HCC) (09/23/2021), Diastolic heart failure ([facility]/HCC) (09/23/2021), Dyspnea (09/23/2021), Edema (09/23/2021), Essential hypertension (09/23/2021), Hyperlipemia (09/23/2021), Kidney disease (09/23/2021), Orthopnea (09/23/2021), Primary malignant neoplasm ([facility]/HCC) (09/23/2021), Sleep apnea, and Type 1 diabetes ([facility]) (09/23/2021). Surgical History She has a past surgical history that includes Thoracentesis (Right); Cardiac catheterization (12/07/2015); and Neck surgery (06/03/2014). Social History She reports that she has never smoked. She has never used smokeless tobacco. She reports that she does not drink alcohol and does not use drugs. Family History No family history on file. Allergies Benazepril, Lisinopril, and Meloxicam Medications Current Outpatient Medications: albuterol 2.5 mg /3 mL (0.083 %) nebulizer solution, albuterol sulfate 2.5 mg/3 mL (0.083 %) solution for nebulization, Disp: , Rfl: aspirin 81 mg EC tablet, Take 81 mg by mouth in the morning., Disp: , Rfl: atorvastatin (Lipitor) 40 mg tablet, Take 40 mg by mouth at bedtime., Disp: , Rfl: calcium acetate (Phoslo) 667 mg capsule, Take 1,334 mg by mouth with breakfast, with lunch, and with evening meal., Disp: , Rfl: carvedilol (Coreg) 3.125 mg tablet, Take 1 tablet (3.125 mg) by mouth with breakfast and with evening meal., Disp: 180 tablet, Rfl: 3 cholecalciferol (Vitamin D-3) 25 MCG (1000 units) tablet, every 12 (twelve) hours., Disp: , Rfl: citalopram (CeleXA) 40 mg tablet, Take 40 mg by mouth in the morning., Disp: , Rfl: uftafheqijt-vpfkavryy-vmjtvjia (Trelegy Ellipta) 200-62.5-25 mcg blister with device, Inhale., Disp: , Rfl: furosemide (Lasix) 40 mg tablet, Take 1.5 tablets by mouth in the morning and at bedtime., Disp: , Rfl: HumaLOG KwikPen Insulin 100 unit/mL injection, , Disp: , Rfl: HYDROcodone-acetaminophen ([place]) 7.5-325 mg tablet, Take 1 tablet by mouth if needed., Disp: , Rfl: midodrine (Proamatine) 5 mg tablet, Take 1 tablet (5 mg) by mouth before breakfast, before lunch, and before evening meal. For low blood pressure, lightheadedness, dizziness, Disp: 270 tablet, Rfl: 3 pantoprazole (ProtoNix) 40 mg EC tablet, Take 40 mg by mouth before breakfast. Do not crush, chew, or split., Disp: , Rfl: pramipexole (Mirapex) 0.25 mg tablet, Take 0.25 mg by mouth once daily as directed., Disp: , Rfl: valsartan (Diovan) 160 mg tablet, Take 80 mg by mouth in the morning., Disp: , Rfl: Last Recorded Vitals BP (!) 126/48 (BP Location: Right arm, Patient Position: Standing) Pulse 71 Ht 1.626 m (5' 4 ) Wt 60.8 kg (134 lb) SpO2 99% Comment: on 3L O2 BMI 23.00 kg/m??? Physical Examination: GENERAL: alert and oriented x3, well developed, in no acute distress. HEAD: atraumatic, normocephalic. EYES: AGUILA, EOMI. NECK: trachea midline, no JVD present, no carotid bruits present. CARDIAC: S1, S2 present. RRR. No murmur, rubs, or gallops. RESPIRATORY: CTAB, no increased effort of breathing, no rales, rhonchi, or wheezi (more content not included)...[facility] 12-16-2022 Progress note Author Edie Michel [facility] December 16, 2022 4:32pm Note Date/Time December 16, 2022 4 :23pm [facility] [address] [place] [address] Cardiology Progress Note Signed Patient: Cinthya Wilson MR#: [id number] : 1945 Acct:[id number] Age/Sex: 77 / F Adm Date: 3 Loc: 4 Room: [address] [place] [address] Type: ADM IN Attending Dr: Annette Tenoroi MD Copies to: ~ Date of Service: 12/16/2022 Subjective Principal diagnosis: Complex ventricular arrhythmias Interval history: Pt started on Amiodarone over the weekend. Beta madhu stopped due to sick sinus syndrome. Notable 3.1s pause on event monitor with report of intermittent complete heart block prior to admission. Following dialysis, she had an episode of non sustained VT that was asymptomatic-pt had just had a bowel movement. Continues on PO Amiodarone load. Exam Physical Exam Vital Signs: Temp Pulse Resp BP Pulse Ox O2 Del Method O2 Flow Rate 97.5 F L 72 18 98/50 L 98 Nasal Cannula 2 12/16/22 15:38 12/16/22 16:00 12/16/22 16:00 12/16/22 15:38 12/16/22 16:00 12/16/22 16:00 12/16/22 16:00 Narrative: GEN: AAOx3. No acute distress. Lying comfortably flat in bed Neck: No JVD. Lungs: Clear to auscultation bilaterally Heart: Regular rate and rhythm. Normal S1 and S2. No murmurs or rubs appreciated. Abdomen: Soft, nontender, nondistended, bowel sounds present. Extremities: No BLE edema. Neuro: AAOx3. No focal deficits. Objective Labs 12/15/22 04:46 12/15/22 04:46 Labs: Laboratory Results - last 24 hr 12/15/22 12/15/22 12/16/22 16:27 20:39 07:43 POC Glucose 172 189 208 POC Glucose Comment Glu2: cleaned meter 12/16/22 12/16/22 13:39 16:01 POC Glucose 138 231 POC Glucose Comment A&P - Cardiology (1) Nonsustained ventricular tachycardia: Assessment/Problem Details: Beta-blockade was ineffective at preventing recurrence. She presented with symptomatic ventricular arrhythmias. Started on Amiodarone 400mg BID. Will continue for 14 days and switch to 200mg daily thereafter - Continue 14day event monitor Code(s): I47.29 - Other ventricular tachycardia Status: Acute (2) Cardiomyopathy: Assessment/Problem Details: Mild. Systolic ejection fraction about 50%. Nonetheless the frequent and complex ventricular arrhythmias probably were causing her to have heart failure type symptomatology. Code(s): I42.9 - Cardiomyopathy, unspecified Status: Acute (3) CAD (coronary artery disease): Assessment/Problem Details: Stable with no manifestations of ischemia Code(s): I25.10 - Atherosclerotic heart disease of [place] coronary artery without angina pectoris Status: Acute Plan Continue same. Hold off beta-blockers. I do not believe they are beneficial inthis particular situation. Amiodarone has significantly stabilized her rhythm and her net cardiac output is improved as a result. Continue Amiodarone 400mg BID for 14 days followed by 200mg daily thereafter. Continue event monitor for total of 14 days Follow up with primary dental office receptionist as scheduled. Documented By: Edie Michel MD 12/16/22 1618 Signed By: <Electronically signed by Edie Michel MD> 12/16/22 1632 [facility] Work Phone: 1(171) 414-110011-06-2023 Progress note [facility] December 16, 2022 2:08pm Note Date/Time December 16, 2022 2 :08pm [facility] [address] [place] [address] Nephrology Progress Note Signed Patient: Cinthya Wilson MR#: [id number] : 1945 Acct:[id number] Age/Sex: 77 / F Adm Date: 3 Loc: 4P Room: [address] [place] [address] Type: ADM IN Attending Dr: Annette Tenorio MD Copies to: ~ Date of Service: 12/16/2022 Subjective Subjective Narrative: Ms. 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 Patient currently gets dialysis at [facility] dialysis unit on MWF schedule. Patient had recent admission on December 07 for syncopal episode and she was found to have episodes of nonsustained V. tach with prolonged QT interval. She was evaluated by cardiology and carvedilol was switched to metoprolol and she was set to follow-up with cardiology as outpatient. She did go to ER at [facility] for shortness of breath and generalized weakness. Temperature was 99.9 and she was found to be bradycardic 35 to 40 bpmwith sinus bradycardia rhythm with occasional bigeminal rhythm. Atropine was given with persistent arrhythmia with bigeminy and subsequently patient was started on amiodarone drip and transferred to [facility]. Interval history: Patient was seen and examined during hemodialysis session. Heart rate is well controlled. Vital signs stable. Ultrafiltration is set at 2 L. Patient is about 5 kg above her EDW Currently only on amiodarone. She has been off metoprolol. Cardiology service is following the Patient denies any more dizziness. Denied heart palpitation. No nausea no vomiting. No chest pain. No diarrhea Exam Physical Exam Vital Signs: Temp Pulse Resp BP Pulse Ox O2 Del Method O2 Flow Rate 97.4 F L 65 16 110/50 L 99 Room Air 3 12/16/22 13:33 12/16/22 13:33 12/16/22 13:33 12/16/22 13:33 12/16/22 13:33 12/16/22 13:33 12/16/22 09:30 Narrative: General: No acute distress Head :atraumatic normocephalic Eyes: PERRLA. Neck: no JVD no bruit. Heart: S1-S2. RRR Respiratory: Clear to auscultation. No wheezing. No crackles Abdomen: Soft, positive bowel sounds,no tenderness. Neurology: Awake alert oriented x3. No focal deficits Extremity. No cyanosis. No edema Skin: No skin rash Objective Intake and Output I&O: Intake & Output 12/14/22 12/15/22 12/15/22 12/16/22 00:59 00:59 23:59 23:59 Intake Total 990 / 990 Output Total Balance 990 / 990 Weight 64.6 kg Meds and Allergies Meds: Active Medications Amiodarone HCl (Amiodarone 200 Mg Tablet) 400 mg PO BID YESSENIA Stop: 12/14/23 10:09 Last Admin: 12/16/22 13:41 Dose: 400 mg Aspirin (Aspirin 81 Mg Tablet.Dr) 81 mg PO DAILY YESSENIA Stop: 12/14/23 08:59 Last Admin: 12/16/22 13:41 Dose: 81 mg Atorvastatin Calcium (Atorvastatin 40 Mg Tablet) 40 mg PO QPM YESSENIA Stop: 12/14/23 20:59 Last Admin: 12/15/22 21:38 Dose: 40 mg Budesonide/Formoterol Fumarate (Budesonide/Formoterol 80-4.5 Mcg 60 Puff/6.9 Gm Hfa.Aer.Ad) 2 puff INHALATION BID YESSENIA Stop: 12/14/23 08:59 Last Admin: 12/16/22 08:59 Dose: 2 puff Calcium Acetate (Calcium Acetate 667 Mg Capsule) 667 mg PO TID.WITH.MEALS YESSENIA Stop: 12/14/23 07:59 Last Admin: 12/16/22 13:41 Dose: 667 mg Darbepoetin Theodore (Darbepoetin Theodore In Polysorbat 40 Mcg/Ml Vial) 80 mcg IV-PUSHWe@0900 YESSENIA Stop: 12/18/23 08:59 Dextrose (Dextrose 50% In Water 25 Gm/50 Ml Syringe) 0 gm IV-PUSH PRN PRN PRN Reason: Hypoglycemia Stop: 12/13/23 23:58 Diclofenac Sodium (Diclofenac Sodium 1% Gel 50 Gm Tube) 2 gm TOPICAL BID YESSENIA Stop: 12/16/23 01:44 Last Admin: 12/16/22 13:42 Dose: 2 gm Furosemide (Furosemide 20 Mg Tablet) 60 mg PO BID.WITH.MEALS YESSENIA Stop: 12/14/23 07:59 Last Admin: 12/16/22 13:42 Dose: 60 mg Glucose (Dextrose 40% Gel 15 Gm Tube) 0 gm PO PRN PRN PRN Reason: Hypoglycemia Stop: 12/13/23 23:58 Heparin Sodium (Porcine) (Heparin 5,000 Unit/Ml Vial) 5,000 unit SUBCUT Q8HR YESSENIA Stop: 12/13/23 21:59 Last Admin: 12/16/22 13:42 Dose: 5,000 unit Heparin Sodium (Porcine) (Heparin 10,000 Unit/10 Ml Vial) 2,000 unit IV PRN PRN PRN Reason: Dialysis Stop: 12/16/23 08:48 Last Admin: 12/16/22 10:13 Dose: 2,000 unit Heparin Sodium (Porcine) (Heparin 10,000 Unit/10 Ml Vial) 1,000 unit IV-PUSH PRN PRN PRN Reason: Dialysis Stop: 12/16/23 08:57 Last Admin: 12/16/22 10:13 Dose: 1,000 unit Sodium Chloride (0.9% Sodium Chloride 1,000 Ml) 1,000 mls @ 0 mls/hr MISCELLANE.Q0M PRN PRN Reason: Dialysis Stop: 12/16/23 08:48 Last Infusion: 12/16/22 10:14 Dose: Infused Insulin Aspart (Insulin Aspart 300 Units/3 Ml Insuln.Pen) 0 units SUBCUT TID.[facility]; Protocol Stop: 12/14/23 07:59 Last Admin: 12/16/22 13:42 Dose: Not Given Ipratropium Chualar (Ipratropium Chualar 0.5 Mg/2.5 Ml Vial.Neb) 0.5 mg INHALATION QID.RESP YESSENIA Stop: 12/14/23 07:59 Last Admin: 12/16/22 12:16 Dose: Not Given Oxycodone/Acetaminophen (Oxycodone/Acetaminophen 5-325 Mg Tablet) 1 tab PO [id number] PRN Reason: Pain Last Admin: 12/16/22 12:18 Dose: 1 tab Pantoprazole Sodium (Pantoprazole 40 Mg Tablet.) 40 mg PO DAILY [facility] Stop: 12/14/23 08:59 Last Admin: 12/16/22 13:41 Dose: 40 mg Pramipexole Dihydrochloride (Pramipexole 0.5 Mg Tablet) 0.5 mg PO [facility] Stop: 12/14/23 21:59 Last Admin: 12/15/22 21:38 Dose: 0.5 mg Sennosides (Sennosides 8.6 Mg Tablet) 1 tab PO BID [facility] Stop: 12/14/23 08:59 Last Admin: 12/16/22 13:41 Dose: 1 tab Sodium Chloride (Sodium Chloride 0.9 % 10 Ml Syringe) 0 ml IV-PUSH PRN PRN PRN Reason: Flush Stop: 12/16/23 08:48 Last Admin: 12/16/22 10:14 Dose: 10 ml Allergies lisinopril Allergy (Verified 12/06/22 18:31) Cough Results Labs 12/15/22 04:46 12/15/22 04:46 Radiology Impressions Impressions - last 24 hours: Any impression(s) listed above is documentation that was entered by the reading physician into a diagnostic report(s) for Cinthya Mc Shahidalbaro. I have reviewed the report(s) and am incorporating any findings in the treatment plan of this patient where applicable. 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 She gets dialysis admitted for dialysis unit on [facility] schedule. (2) Nonsustained ventricular tachycardia: Assessment/Problem Details: Patient had episodes of nonsustained ventricular tachycardia alternating with bradycardia that has been difficult to control even after switching carvedilol to metoprolol. Currently on amiodarone drip. Patient possibly has sick sinus syndrome. (3) Type 2 diabetes mellitus with diabetic chronic kidney disease: Assessment/Problem Details: She has insulin-dependent type 2 diabetes mellitus. (4) Benign hypertension with end-stage renal disease: Assessment/Problem Details: Her blood pressure is controlled. She appears to be euvolemic and well compensated. She occasionally takes midodrine with dialysis (5) Anemia of renal disease: Assessment/Problem Details: Her hemoglobin within the goal. (6) Secondary hyperparathyroidism: Assessment/Problem Details: She has a secondary hyperparathyroidism due to the ESRD and hyperphosphatemia. Currently take calcium acetate at home. Plan * Hemodialysis session today. Blood flow rate 350, dialysate rate 500, ultrafiltration 2L * Patient is currently in sinus rhythm with heart rate in the 60'S/min. Cardiology service following the patient for heart rate * Patient on Aranesp with hemodialysis weekly for anemia, will continue the same dose. * Monitor daily intake and output and renal panel. We will adjust medications and dialysis prescriptions accordingly. Documented By: Geronimo Fofana MD 12/16/22 1407 Signed By: <Electronically signed by Geronimo Fofana MD> 12/16/22 7127 [facility] Work Phone: [phone]) 250-837611-06-2023 Hospital Discharge instructionsAmbulatory Orders* Initiate Home Health Time Frame: 12/16/22, Location: Determined By Patient Additional Instructions I may not have addressed or treated all of your medical illnesses or the abnormal blood work or imaging studies during this hospitalization. Please ask your primary care provider to obtain [facility] records entirely to follow up on all of the abnormal physical, laboratory, and imaging findings that I have not addressed. Please return back to the emergency room or seek medical attention if your symptoms worsen or return. Discharging you from [facility] does not mean that your medical care ends here and now. You may still need additional monitoring, work up, investigation, and treatment plan to be handled from this point on by out patient providers including your primary care provider and specialists. For any medication question, please contact your retail pharmacist or your primary care provider. Thank you. Continue oxygen as per chronic orders. Continue hemodialysis treatments as before. Continue to monitor glucose levels as before. Home health to manage: -RN/PT/OT to eval and treat -Monitor VS per protocol -Fall precautions -Perform cardiovascular assessments -Assist with medication management and educaton -Continue oxygen as per chronic orders -Continue hemodialysis treatments as before -Continue to monitor glucose levels as before -Monitor intake and output -Daily weight -Change dressings every 3 days: *right matos- clean ulcer with vashe, wipe free loose debris, apply therahoney gel to wound bed, top with adaptic, 4x4s and secure with conforming gauze *coccyx stage 3 pressure injury- clean with vashe, wipe free loose debris, apply therahoney gel, top with adaptic, and mepilex border foam- have mepilex cover area of blisters to left also [facility] Work Phone: [phone]) 952-686211-06-2023 Discharge summary Author Annette Tenorio [facility] December 17, 2022 7:16am Note Date/Time December 16, 2022 9 :22am [facility] [address] [place] [address] Discharge Summary Signed Patient: Cinthya Wilson MR#: [id number] : 1945 Acct:[id number] Age/Sex: 77 / F Adm Date: 3 Loc: Room: 6J3995-[address]: Annette Tenorio MD Copies to: MD Annette Bourgeois II, MD~ Providers Date of Discharge: 12/16/22 Discharging Provider: Annette Tenorio Primary Care Provider: Lily Aldrich Consults: 12/13/22 20:55 Consult to Cardiology Routine 12/13/22 22:50 Consult to Nephrology Routine 12/14/22 09:13 Consult to Pulmonology Routine Discharge Diagnosis (1) Diabetes mellitus with insulin therapy: (2) HTN (hypertension): (3) CAD (coronary artery disease): (4) Nonsustained ventricular tachycardia: (5) Bigeminy: (6) Diabetes: (7) ESRD (end stage renal disease): Final Diagnosis Final Discharge Diagnosis: As listed above and others that are not listed Summary Hospital Course Hospital course: This is my first day and last day taking care of this patient before discharge. Please refer to record for details given the fact that the majority of this hospitalization had been managed by my colleague in collaboration with cardiology and nephrology. Patient came in with bradycardia, bigeminy and nonsustained ventricular dysrhythmia. Patient was seen by cardiology team who recommended discontinuation of her beta-madhu and initiation of amiodarone. He did not recommend anticoagulation. Echocardiogram showed normal ejection fraction. Cardiology team did not recommend a CAD evaluation at this time. They cleared the patient for discharge. I told appreciate cardiology input and involvement. We will follow the recommendations given their expertise in specialty subject matter. End-stage kidney disease on hemodialysis Hypertension, diabetes, multiple other medical issues which appear to be stable at this time and that could be handled in the outpatient setting. Patient has multiple complex medical issues. All appear to be stable. I do nothave any clear or strong clinical justification to extend inpatient hospitalization against her will and desire to go home and against cardiology and nephrology clearance. Patient lives with her daughter. She does not want to go to rehab or skilled. Patient however will require close and the frequent monitoring as well as additional work-up, investigation and therapeutic intervention that could take place from this point on post discharge. That is to prevent relapse, decompensation, rehospitalization and other medical implications. I instructed patient to ask her primary care doctor to obtain [facility] record entirely to address abnormalities seen on labs and imagingand to follow-up on needed medical care in the outpatient setting. Condition Condition at Discharge: Stable Time Spent with Patient Time spent providing/coordinating discharge services (# min): 40 Diagnostic Studies Completed and Pending Studies Labs on day of discharge: 12/16/22 07:43: POC Glucose 208 12/15/22 20:39: POC Glucose 189, POC Glucose Comment Glu2: cleaned meter 12/15/22 16:27: POC Glucose 172 12/15/22 12:01: POC Glucose 168, POC Glucose Comment Glu2: cleaned meter 12/15/22 04:46: Magnesium 1.8 L Exam Physical Exam Vital Signs: Temp Pulse Resp BP Pulse Ox O2 Del Method O2 Flow Rate 97.4 F L 63 16 138/64 98 Nasal Cannula 2.5 12/16/22 07:58 12/16/22 08:35 12/16/22 08:35 12/16/22 08:47 12/16/22 08:35 12/16/22 08:35 12/16/22 08:35 Narrative: General: Patient is alert and awake, laying comfortably in bed, no signs of distress CVS: Slow heart rhythm, S1-S2, systolic murmur RES: Clear to auscultation bilaterally, symmetric expansion, no distress ABD: Soft, not distended, no tenderness, positive bowel sounds, no palpable masses EXT: Moves all, no restriction of movement, no calf tenderness, no edema NEURO: Alert, oriented by 3, normal speech, normal motor function Discharge Plan Discharge Plan Patient Disposition: Home Health [facility] Activity: No Activity Restriction Diet: Diabetic and Renal Additional Instructions: I may not have addressed or treated all of your medical illnesses or the abnormal blood work or imaging studies during this hospitalization. Please ask your primary care provider to obtain [facility] records entirely to follow up on all of the abnormal physical, laboratory, and imaging findings that I have not addressed. Please return back to the emergency room or seek medical attention if your symptoms worsen or return. Discharging you from [facility] does not mean that your medical care ends here and now. You may still need additional monitoring, work up, investigation, and treatment plan to be handled from this point on by out patient providers including your primary care provider and specialists. For any medication question, please contact your retail pharmacist or your primary care provider. Thank you. Continue oxygen as per chronic orders. Continue hemodialysis treatments as before. Continue to monitor glucose levels as before. Home health to manage: -RN/PT/OT to eval and treat -Monitor VS per protocol -Fall precautions -Perform cardiovascular assessments -Assist with medication management and educaton -Continue oxygen as per chronic orders -Continue hemodialysis treatments as before -Continue to monitor glucose levels as before -Monitor intake and output -Daily weight -Change dressings every 3 days: *right matos- clean ulcer with vashe, wipe free loose debris, apply therahoney gel to wound bed, top with adaptic, 4x4s and secure with conforming gauze *coccyx stage 3 pressure injury- clean with vashe, wipe free loose debris,apply therahoney gel, top with adaptic, and mepilex border foam- have mepilex cover area of blisters to left also Instructions: Heart Failure, Adult (DC) Prescriptions: New amiodarone 200 mg Tablet 400 mg PO BID 14 Days Qty: 56 0RF amiodarone 200 mg tablet 200 mg PO DAILY 30 Days Qty: 30 3RF Rx Instructions: start after 400 mg twice daily for 14 days Continued multivitamin Tablet 1 tab PO DAILY dextrose [Glutose-15] 40 % Gel 0.6 g PO PRN PRN (Reason: Hypoglycemia) Qty: 112.5 0RF docusate sodium 100 mg Capsule 100 mg PO BID Qty: 60 0RF insulin aspart U-100 [Novolog FlexPen U-100 Insulin] 100 unit/mL (3 mL) Insulin Pen 1 sliding scale dose subcut TID.WM.HS Qty: 15 0RF (DME) pen needle, diabetic [BD Ultra-Fine Lexis Pen Needle] 32 gauge x 5/32 needle Qty: 100 0RF Rx Instructions: As Directed - FSBS AC/HS calcium acetate(phosphat bind) 667 mg Capsule 667 mg PO TID.WITH.MEALS 60 Days Qty: 240 0RF sennosides [senna] 8.6 mg tablet 8.6 mg PO BID Patient Comments: TAKE 1 TABLET BY MOUTH TWICE DAILY HOLD FOR LOOSE STOOLS pantoprazole 40 mg tablet,delayed release (DR/EC) 40 mg PO DAILY Patient Comments: TAKE 1 TABLET BY MOUTH EVERY DAY diclofenac sodium [Voltaren Arthritis Pain] 1 % Gel 4 g topical QID Qty: 0 0RF furosemide 20 mg tablet 60 mg PO BID 30 Days Qty: 180 0RF Rx Instructions: Take twice a day with meals, at least 6 hours apart. Further refills or adjustments per Nephrology. atorvastatin 40 mg tablet 40 mg PO QPM Patient Comments: Rx Instructions: 1 tablet PO daily citalopram 40 mg tablet 40 mg PO DAILY aspirin 81 mg Tablet,Delayed Release (Dr/Ec) 81 mg PO DAILY Hold Instructions: resume in 2 days if no further bleeding noted. cholecalciferol (vitamin D3) [Vitamin D3] 25 mcg (1,000 unit) Tablet 25 mcg PO DAILY albuterol sulfate 0.63 mg/3 mL Solution For Nebulization 0.63 mg inhalation QID PRN (Reason: SOB) pramipexole 0.5 mg tablet 0.5 mg PO HS oxycodone-acetaminophen 5-325 mg tablet 1 tab PO Q4-6H PRN (Reason: Pain) Patient Comments: TAKE 1 TABLET BY MOUTH EVERY 6 HOURS NEEDED FOR SEVERE PAIN Trelegy Ellipta 100-62.5-25 mcg blister with device 1 ea INHALATION DAILY Patient Comments: INHALE 1 PUFF BY MOUTH EVERY DAY prednisone 10 mg tablet 10 mg PO DAILY Patient Comments: per pt to start 10 mg today / 3 days Rx Instructions: 10 mg x3 days midodrine 5 mg tablet 5 mg PO TID PRN (Reason: Hypotension) Patient Comments: TAKE 1 TABLET BY MOUTH THREE TIMES DAILY NEEDED FOR HYPOTENSION Discontinued metoprolol succinate 25 mg Tablet Extended Release 24 Hr 12.5 mg PO BID 30 Days Qty: 30 0RF Other Ambulatory Orders: Initiate Home Health (Routine) Timeframe: 20221216 Location: Determined by Patient Ordered By: Annette Tenorio Follow Up: Cheli Lutz [Referring] - 01/16/23 1:30 pm (Previously scheduled appointment with cardiology. ) Lily Aldrich II, MD [Primary Care Provider] - 12/26/22 10:45 am (You have been scheduled for a follow up appointment for the following date and time, please call to reschedule if needed.) Documented By: Annette Tenorio MD 12/16/22920 Signed By: <Electronically signed by Annette Tenorio MD> 12/17/22 0716 [facility] Work Phone: [phone] 314-730911-05-2023 Progress note Author Erica Armenta [facility] December 15, 2022 1:23pm Note Date/Time December 15, 2022 1 :23pm [facility] [address] [place] [address] Hospitalist Progress Note Signed Patient: Cinthya Wilson MR#: [id number] : 1945 Acct:[id number] Age/Sex: 77 / F Adm Date: 3 Loc: 4 Room: [address] [place] [address] Type: ADM IN Attending Dr: Erica Armenta MD Copies to: ~ Date of Service: 12/15/2022 Subjective Subjective Narrative: Patient is doing fine. No complaints at this time. Denies any dizziness, palpitations, chest pain. Exam Physical Exam Vital Signs: Temp Pulse Resp BP Pulse Ox O2 Del Method O2 Flow Rate 98.2 F 55 L 18 122/71 94 L Nasal Cannula 3 12/15/22 12:00 12/15/22 12:13 12/15/22 12:13 12/15/22 12:00 12/15/22 12:00 12/15/22 12:00 12/15/22 12:00 Narrative: General: Patient is alert and awake, laying comfortably in bed, no signs of distress CVS: Slow heart rhythm, S1-S2, systolic murmur RES: Clear to auscultation bilaterally, symmetric expansion, no distress ABD: Soft, not distended, no tenderness, positive bowel sounds, no palpable masses EXT: Moves all, no restriction of movement, no calf tenderness, no edema NEURO: Alert, oriented by 3, normal speech, normal motor function Objective Lab Results 12/15/22 04:46 12/15/22 04:46 Additional Results 2D echo: Interpretation Summary Mild concentric left ventricular hypertrophy. Ejection Fraction = 50-55%. There is left ventricular diastolic dysfunction. The left atrium appears mildly dilated. Mild to moderate valvular aortic stenosis. Trace aortic regurgitation. There is trace tricuspid regurgitation. Small left pleural effusion. Meds Allergies and Active Meds Allergies lisinopril Allergy (Verified 12/06/22 18:31) Cough Active Meds: Active Medications Generic Name Dose Route Start Last Admin Trade Name Freq PRN Reason Stop Dose Admin Amiodarone HCl 400 mg 12/14/22 10:10 12/15/22 08:38 Amiodarone 200 Mg Tablet PO 12/14/23 10:09 400 mg BID YESSENIA Administration Aspirin 81 mg 12/14/22 09:00 12/15/22 08:38 Aspirin 81 Mg Tablet.Dr ARORA 12/14/23 08:59 81 mg DAILY YESSENIA Administration Atorvastatin Calcium 40 mg 12/14/22 21:00 12/14/22 21:25 Atorvastatin 40 Mg Tablet PO 12/14/23 20:59 40 mg QPM YESSENIA Administration Budesonide/Formoterol Fumarate 2 puff 12/14/22 09:00 12/15/22 08:06 Budesonide/Formoterol 80-4.5 Mcg 60 Puff/6.9 Gm Hfa.Aer.Ad INHALATION 12/14/23 08:59 2 puff BID YESSENIA Administration Calcium Acetate 667 mg 12/14/22 08:00 12/15/22 13:00 Calcium Acetate 667 Mg Capsule PO 12/14/23 07:59 667 mg TID.WITH.MEALS YESSENIA Administration Dextrose 0 gm 12/13/22 23:59 Dextrose 50% In Water 25 Gm/50 Ml Syringe IV-PUSH 12/13/23 23:58 PRN PRN Hypoglycemia Furosemide 60 mg 12/14/22 08:00 12/15/22 08:38 Furosemide 20 Mg Tablet PO 12/14/23 07:59 60 mg BID.WITH.MEALS YESSENIA Administration Glucose 0 gm 12/13/22 23:59 Dextrose 40% Gel 15 Gm Tube PO 12/13/23 23:58 PRN PRN Hypoglycemia Heparin Sodium (Porcine) 5,000 unit 12/13/22 22:00 12/15/22 13:00 Heparin 5,000 Unit/Ml Vial SUBCUT 12/13/23 21:59 5,000 unit Q8HR YESSENIA Administration Insulin Aspart 0 units 12/14/22 08:00 12/15/22 13:00 Insulin Aspart 300 Units/3 Ml Insuln.Pen SUBCUT 12/14/23 07:59 1 units TID.WM.HS YESSENIA Administration Protocol Ipratropium Chualar 0.5 mg 12/14/22 08:00 12/15/22 12:13 Ipratropium Chualar 0.5 Mg/2.5 Ml Vial.Neb INHALATION 12/14/23 07:59 0.5 mg QID.RESP YESSENIA Administration Midodrine 5 mg 12/13/22 22:49 Midodrine 5 Mg Tablet PO 12/13/23 22:48 TID.7A.12P.5P PRN Hypotension Oxycodone/Acetaminophen 1 tab 12/13/22 22:49 12/15/22 04:29 Oxycodone/Acetaminophen 5-325 Mg Tablet PO 1 tab Q4HR PRN Administration Pain Pantoprazole Sodium 40 mg 12/14/22 09:00 12/15/22 08:38 Pantoprazole 40 Mg Tablet. PO 12/14/23 08:59 40 mg DAILY YESSENIA Administration Pramipexole Dihydrochloride 0.5 mg 12/14/22 22:00 12/14/22 21:25 Pramipexole 0.5 Mg Tablet PO 12/14/23 21:59 0.5 mg HS YESSENIA Administration Sennosides 1 tab 12/14/22 09:00 12/15/22 08:38 Sennosides 8.6 Mg Tablet PO 12/14/23 08:59 1 tab BID YESSENIA Administration A&P - Hospitalist Assessment/Plan (1) Diabetes mellitus with insulin therapy: (2) HTN (hypertension): (3) CAD (coronary artery disease): (4) Nonsustained ventricular tachycardia: (5) Bigeminy: Plan Assessment and plan 1. Bradycardia arrhythmias with bigeminy's and short runs of NSVT's Patient heart rhythm remains stable on amiodarone 400 mg twice daily She is intolerable to beta-blockers due to bradycardia We will monitor heart rhythm for 24 hours per cardiology recommendations Continue aspirin and Lipitor 2. End-stage renal disease on hemodialysis. 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, currently on midodrine COPD and chronic hypoxic respiratory failure on 3 L nasal cannula oxygen GERD Diabetes mellitus type 2, on ISS coverage Documented By: Erica Armenta MD 12/15/221320 Signed By: <Electronically signed by Erica Armenta MD> 12/15/221322 [facility] Work Phone: [phone] Progress note Author Narinder Toussaint [facility] December 15, 2022 12:01pm Note Date/Time December 15, 2022 1 1:58am [facility] [address] [place] [address] Nephrology Progress Note Signed Patient: Cinthya Wilson MR#: [id number] : 1945 Acct:[id number] Age/Sex: 77 / F Adm Date: 3 Loc: 4 Room: [address] [place] [address] Type: ADM IN Attending Dr: Erica Armenta MD Copies to: ~ Date of Service: 12/15/2022 Subjective Subjective Narrative: Ms. 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 Patient currently gets dialysis at [facility] dialysis unit on MWF schedule. Patient had recent admission on December 07 for syncopal episode and she was found to have episodes of nonsustained V. tach with prolonged QT interval. She was evaluated by cardiology and carvedilol was switched to metoprolol and she was set to follow-up with cardiology as outpatient. She did go to ER at [facility] for shortness of breath and generalized weakness. Temperature was 99.9 and she was found to be bradycardic 35 to 40 bpmwith sinus bradycardia rhythm with occasional bigeminal rhythm. Atropine was given with persistent arrhythmia with bigeminy and subsequently patient was started on amiodarone drip and transferred to [facility]. Interval history: Patient was started on IV amiodarone since admission and switch to oral amiodarone with improvement of bradycardia and no evidence of ventricular tachycardia so far. Heart rate ranged between 55 to 60/min with stable blood pressure. Patient had hemodialysis just before admission and she currently receives dialysis on MWF schedule at [facility]. Next hemodialysis will be tomorrow if she still in-house. 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 dental office receptionist recommended additional 24- hour monitoring of rhythm before discharge. Exam Physical Exam Vital Signs: Temp Pulse Resp BP Pulse Ox O2 Del Method O2 Flow Rate 36.8 C 59 L 18 125/52 L 99 Nasal Cannula 1 12/15/22 08:00 12/15/22 08:12 12/15/22 08:12 12/15/22 08:00 12/15/22 08:05 12/15/22 08:12 12/15/22 08:12 Narrative: Constitutional: Up in the bed, awake with no respiratory distress. HEENT: She has mild pallor. Mucous membranes are moist. Cardiovascular: RRR, normal S1-S2, no gallop or rub, No JVD Respiratory: Diminished breath sounds. No crackles or wheezes. Gastrointestinal: Soft, non tender, positive bowel sounds. No palpable organs or masses Extremities: 1+ edema Skin: No rashes or bruises Musculoskeletal: Left shoulder tenderness. No swellings or inflammation Neurology: Awake, alert, oriented ?3, No focal motor or sensory deficits. Psych: Normal mood and affect Vascular access: Left arm AV fistula with good thrill. Objective Intake and Output I&O: Intake & Output 12/12/22 12/13/22 12/14/22 12/15/22 23:59 23:59 23:59 22:59 Intake Total 150 / 150 850 / 850 150 / 150 Output Total 0 / 0 Balance 150 / 150 850 / 850 150 / 150 Weight 63.9 kg 63.9 kg 64 kg Meds and Allergies Meds: Active Medications Amiodarone HCl (Amiodarone 200 Mg Tablet) 400 mg PO BID YESSENIA Stop: 12/14/23 10:09 Last Admin: 12/15/22 08:38 Dose: 400 mg Aspirin (Aspirin 81 Mg Tablet.Dr) 81 mg PO DAILY YESSENIA Stop: 12/14/23 08:59 Last Admin: 12/15/22 08:38 Dose: 81 mg Atorvastatin Calcium (Atorvastatin 40 Mg Tablet) 40 mg PO QPM YESSENIA Stop: 12/14/23 20:59 Last Admin: 12/14/22 21:25 Dose: 40 mg Budesonide/Formoterol Fumarate (Budesonide/Formoterol 80-4.5 Mcg 60 Puff/6.9 Gm Hfa.Aer.Ad) 2 puff INHALATION BID YESSENIA Stop: 12/14/23 08:59 Last Admin: 12/15/22 08:06 Dose: 2 puff Calcium Acetate (Calcium Acetate 667 Mg Capsule) 667 mg PO TID.WITH.MEALS YESSENIA Stop: 12/14/23 07:59 Last Admin: 12/15/22 08:38 Dose: 667 mg Dextrose (Dextrose 50% In Water 25 Gm/50 Ml Syringe) 0 gm IV-PUSH PRN PRN PRN Reason: Hypoglycemia Stop: 12/13/23 23:58 Furosemide (Furosemide 20 Mg Tablet) 60 mg PO BID.WITH.MEALS YESSENIA Stop: 12/14/23 07:59 Last Admin: 11/05/23 08:38 Dose: 60 mg Glucose (Dextrose 40% Gel 15 Gm Tube) 0 gm PO PRN PRN PRN Reason: Hypoglycemia Stop: 12/13/23 23:58 Heparin Sodium (Porcine) (Heparin 5,000 Unit/Ml Vial) 5,000 unit SUBCUT Q8HR [facility] Stop: 12/13/23 21:59 Last Admin: 12/15/22 05:25 Dose: Not Given Insulin Aspart (Insulin Aspart 300 Units/3 Ml Insuln.Pen) 0 units SUBCUT TID.WM.[facility]; Protocol Stop: 12/14/23 07:59 Last Admin: 12/15/22 08:38 Dose: 1 units Ipratropium Chualar (Ipratropium Chualar 0.5 Mg/2.5 Ml Vial.Neb) 0.5 mg INHALATION QID.RESP [facility] Stop: 12/14/23 07:59 Last Admin: 12/15/22 08:05 Dose: 0.5 mg Midodrine (Midodrine 5 Mg Tablet) 5 mg PO TID.7A.12P.5P PRN PRN Reason: Hypotension Stop: 12/13/23 22:48 Oxycodone/Acetaminophen (Oxycodone/Acetaminophen 5-325 Mg Tablet) 1 tab PO [id number] PRN Reason: Pain Last Admin: 12/15/22 04:29 Dose: 1 tab Pantoprazole Sodium (Pantoprazole 40 Mg Tablet.Dr) 40 mg PO DAILY [facility] Stop: 12/14/23 08:59 Last Admin: 12/15/22 08:38 Dose: 40 mg Pramipexole Dihydrochloride (Pramipexole 0.5 Mg Tablet) 0.5 mg PO [facility] Stop: 12/14/23 21:59 Last Admin: 12/14/22 21:25 Dose: 0.5 mg Sennosides (Sennosides 8.6 Mg Tablet) 1 tab PO BID [facility] Stop: 12/14/23 08:59 Last Admin: 12/15/22 08:38 Dose: 1 tab Allergies lisinopril Allergy (Verified 12/06/22 18:31) Cough Results Labs 12/15/22 04:46 12/15/22 04:46 Labs: 12/15/22 04:46 BUN 70 H Creatinine 4.59 H D Radiology Impressions Impressions - last 24 hours: Any impression(s) listed above is documentation that was entered by the reading physician into a diagnostic report(s) for Cinthya Wilson. I have reviewed the report(s) and am incorporating any findings in the treatment plan of this patient where applicable. 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 She gets dialysis admitted for dialysis unit on MWF schedule. (2) Nonsustained ventricular tachycardia: Assessment/Problem Details: Patient had episodes of nonsustained ventricular tachycardia alternating with bradycardia that has been difficult to control even after switching carvedilol to metoprolol. Currently on amiodarone drip. Patient possibly has sick sinus syndrome. (3) Type 2 diabetes mellitus with diabetic chronic kidney disease: Assessment/Problem Details: She has insulin-dependent type 2 diabetes mellitus. (4) Benign hypertension with end-stage renal disease: Assessment/Problem Details: Her blood pressure is controlled. She appears to be euvolemic and well compensated. She occasionally takes midodrine with dialysis (5) Anemia of renal disease: Assessment/Problem Details: Her hemoglobin within the goal. (6) Secondary hyperparathyroidism: Assessment/Problem Details: She has a secondary hyperparathyroidism due to the ESRD and hyperphosphatemia. Currently take calcium acetate at home. Plan * Patient is clinically stable. No volume overload, hyperkalemia or acidosis. Next hemodialysis will be tomorrow. * Patient is currently in sinus rhythm with heart rate 55 to 60/min. Cardiology recommended additional 24-hour monitoring for the rhythm on amiodarone before discharge. Patient can be discharged tomorrow after dialysis if no more arrhythmia and cleared by cardiology. * Patient on Aranesp with hemodialysis weekly for anemia, will continue the same dose. * All medications reviewed. * Monitor daily intake and output and renal panel. We will adjust medications and dialysis prescriptions accordingly. Documented By: Narinder Toussaint MD 12/15/22 1158 Signed By: <Electronically signed by MD Narinder Toussaint> 12/15/22 1201 [facility] Work Phone: [phone] Progress note Author Armando German [facility] December 15, 2022 10:53am Note Date/Time December 15, 2022 1 0:53[facility] [address] [place] [address] Cardiology Progress Note Signed Patient: Cinthya Wilson MR#: [id number] : 1945 Acct:[id number] Age/Sex: 77 / F Adm Date: 3 Loc: 4 Room: [address] [place] [address] Type: ADM IN Attending Dr: Erica Armenta MD Copies to: ~ Date of Service: 12/15/2022 Subjective Principal diagnosis: Complex ventricular arrhythmias Interval history: Patient feeling dramatically improved. I believe the cessation of beta-blockadeimproved her sick sinus syndrome. Additionally the antiarrhythmic suppressive effects of amiodarone preventing the ventricular couplets and triplets has also improved her that stroke-volume and cardiac output. This is also why she is feeling well. I recommend continued therapy as is for another day. Probably suitable for discharge Friday after dialysis. Exam Physical Exam Vital Signs: Temp Pulse Resp BP Pulse Ox O2 Del Method O2 Flow Rate 98.3 F 59 L 18 125/52 L 99 Nasal Cannula 1 12/15/22 08:00 12/15/22 08:12 12/15/22 08:12 12/15/22 08:00 12/15/22 08:05 12/15/22 08:12 12/15/22 08:12 HEENT Head: normal to inspection Ears: hearing grossly normal bilaterally Nose: external nose normal and nares normal Face and sinus: normal facial exam Mouth: oral mucosae normal and tongue normal Eyes Conjunctivae: conjunctivae normal Sclera: sclerae normal Neck Neck: normal visual inspection Carotids: normal carotid upstroke Lymphatic: no lymphadenopathy noted Chest Chest palpation & inspection: normal inspection of the chest Resp Effort & Inspection: normal respiratory effort Auscultation: clear to auscultation bilaterally Cardio Rate: regular rate Rhythm: regular rhythm Heart Sounds: S1 normal and S2 normal GI Inspection: normal to inspection Palpation: soft Skin General: no rashes or lesions noted Neuro General: patient alert, patient awake and patient oriented x3 Cognition: normal cognition Motor: muscle tone normal throughout Sensory Exam: no sensory deficits noted Objective Labs 12/15/22 04:46 12/15/22 04:46 Labs: Laboratory Results - last 24 hr 12/14/22 12/14/22 12/14/22 11:53 16:21 20:32 Corrected WBC Uncorrected WBC Count RBC Hgb Hct MCV MCH MCHC RDW Plt Count MPV Neut % (Auto) Lymph % (Auto) [place] % (Auto) Eos % (Auto) Baso % (Auto) Nucleat RBC Rel Count Neut # (Auto) Lymph # (Auto) [place] # (Auto) Eos # (Auto) Baso # (Auto) PHA Creatinine Clear Sodium Potassium Chloride Carbon Dioxide Anion Gap BUN Creatinine Est GFR (CKD-EPI) Glucose POC Glucose 233 222 225 POC Glucose Comment Glu2: cleaned meter Glu2: cleaned meter Calcium Magnesium 12/15/22 12/15/22 12/15/22 04:46 04:46 07:28 Corrected WBC 10.7 Uncorrected WBC Count 10.7 RBC 3.63 Hgb 10.4 L Hct 33.1 L MCV 91.4 MCH 28.7 MCHC 31.4 L RDW 17.6 H Plt Count 305 MPV 7.5 Neut % (Auto) 79.3 Lymph % (Auto) 10.4 Mchenry % (Auto) 8.5 Eos % (Auto) 1.5 Baso % (Auto) 0.3 Nucleat RBC Rel Count 0.0 Neut # (Auto) 8.5 H Lymph # (Auto) 1.1 Mchenry # (Auto) 0.9 H Eos # (Auto) 0.2 Baso # (Auto) 0.0 PHA Creatinine Clear 9.14 Sodium 129 L Potassium 4.4 Chloride 91 L Carbon Dioxide 24.1 Anion Gap 18.3 H BUN 70 H Creatinine 4.59 H D Est GFR (CKD-EPI) 9.437 Glucose 181 H D POC Glucose 150 POC Glucose Comment Glu2: cleaned meter Calcium 8.9 Magnesium 1.8 L A&P - Cardiology (1) Nonsustained ventricular tachycardia: Assessment/Problem Details: Beta-blockade was ineffective at preventing recurrence. She presented with symptomatic ventricular arrhythmias. Cessation of beta-blockade and the implementation of amiodarone has eliminated the ventricular arrhythmia. Code(s): I47.29 - Other ventricular tachycardia Status: Acute (2) Cardiomyopathy: Assessment/Problem Details: Mild. Systolic ejection fraction about 50%. Nonetheless the frequent and complex ventricular arrhythmias probably were causing her to have heart failure type symptomatology. Code(s): I42.9 - Cardiomyopathy, unspecified Status: Acute (3) CAD (coronary artery disease): Assessment/Problem Details: Stable with no manifestations of ischemia Code(s): I25.10 - Atherosclerotic heart disease of [place] coronary artery without angina pectoris Status: Acute Plan Continue same. Hold off beta-blockers. I do not believe they are beneficial inthis particular situation. Amiodarone has significantly stabilized her rhythm and her net cardiac output is improved as a result. Continue same. Probably discharge Friday on amiodarone 200 mg a day. Documented By: Armando German MD 105 Signed By: <Electronically signed by MD Armando German> 12/15/22 1053 [facility] Work Phone: [phone] Progress note Author Hamlet Nayak [facility] December 15, 2022 10:01am Note Date/Time December 15, 2022 1 0:01am [facility] [address] [place] [address] Progress Note Signed Patient: Cinthya Wilson MR#: [id number] : 1945 Acct:[id number] Age/Sex: 77 / F Adm Date: 3 Loc: Room: [address] [place] [address] Type: ADM IN Attending Dr: Erica Armenta MD Copies to: ~ Date of Service: 12/15/2022 Progress Narrative Note PROGRESS NOTE Progress Note: Patient continues with mild bradycardia but is stable and has been transferred out of the ICU. Pulmonary/critical care medicine will sign off. Please call ifwe can be of assistance. Documented By: Hamlet Nayak MD 3 1000 Signed By: <Electronically signed by MD Hamlet Nayak> 12/15/22 1001 [facility] Work Phone: [phone] Progress note Author Erica Armenta [facility] December 14, 2022 2:21pm Note Date/Time December 14, 2022 2 :21pm [facility] [address] [place] [address] Hospitalist Progress Note Signed Patient: Cinthya Wilson MR#: [id number] : 1945 Acct:[id number] Age/Sex: 77 / F Adm Date: 3 Loc: 4P Room: [address] [place] [address] Type: ADM IN Attending Dr: Erica Armenta MD Copies to: ~ Date of Service: 12/14/2022 Subjective Subjective Narrative: The patient was admitted last night after she had abnormal rhythm during dialysis concerning for bradycardia with NSVT's and bigeminy Patient reports some palpitation and feeling dizzy. Denies any chest pain or shortness of breath She was evaluated by cardiology and started on IV amiodarone. She is currently in sinus bradycardia without significant bigeminy. Exam Physical Exam Vital Signs: Temp Pulse Resp BP Pulse Ox O2 Del Method O2 Flow Rate 97.8 F 65 18 126/59 L 96 Nasal Cannula 3 12/14/22 12:51 12/14/22 12:51 12/14/22 12:51 12/14/22 12:51 12/14/22 12:51 12/14/22 12:51 12/14/22 12:51 Narrative: General: Patient is alert and awake, laying comfortably in bed, no signs of distress CVS: Regular rate and rhythm 2 out of 6 systolic murmur RES: Clear to auscultation bilaterally, symmetric expansion, no distress ABD: Soft, not distended, no tenderness, positive bowel sounds, no palpable masses EXT: Moves all, no restriction of movement, no calf tenderness, no edema NEURO: Alert, oriented by 3, normal speech, normal motor function Objective Lab Results 12/14/22 04:54 12/14/22 04:54 Meds Allergies and Active Meds Allergies lisinopril Allergy (Verified 12/06/22 18:31) Cough Active Meds: Active Medications Generic Name Dose Route Start Last Admin Trade Name Freq PRN Reason Stop Dose Admin Amiodarone HCl 400 mg 12/14/22 10:10 12/14/22 14:13 Amiodarone 200 Mg Tablet PO 12/14/23 10:09 400 mg BID YESSENIA Administration Aspirin 81 mg 12/14/22 09:00 12/14/22 08:17 Aspirin 81 Mg Tablet.Dr ARORA 12/14/23 08:59 81 mg DAILY YESSENIA Administration Atorvastatin Calcium 40 mg 12/14/22 21:00 Atorvastatin 40 Mg Tablet PO 12/14/23 20:59 QPM YESSENIA Budesonide/Formoterol Fumarate 2 puff 12/14/22 09:00 12/14/22 10:30 Budesonide/Formoterol 80-4.5 Mcg 60 Puff/6.9 Gm Hfa.Aer.Ad INHALATION 12/14/23 08:59 2 puff BID YESSENIA Administration Calcium Acetate 667 mg 12/14/22 08:00 12/14/22 11:54 Calcium Acetate 667 Mg Capsule PO 12/14/23 07:59 667 mg TID.WITH.MEALS YESSENIA Administration Dextrose 0 gm 12/13/22 23:59 Dextrose 50% In Water 25 Gm/50 Ml Syringe IV-PUSH 12/13/23 23:58 PRN PRN Hypoglycemia Furosemide 60 mg 12/14/22 08:00 12/14/22 08:17 Furosemide 20 Mg Tablet PO 12/14/23 07:59 60 mg BID.WITH.MEALS YESSENIA Administration Glucose 0 gm 12/13/22 23:59 Dextrose 40% Gel 15 Gm Tube PO 12/13/23 23:58 PRN PRN Hypoglycemia Heparin Sodium (Porcine) 5,000 unit 12/13/22 22:00 12/14/22 14:13 Heparin 5,000 Unit/Ml Vial SUBCUT 12/13/23 21:59 5,000 unit Q8HR YESSENIA Administration Amiodarone HCl 450 mg/ 250 mls @ 16.667 mls/hr 12/13/22 22:45 12/14/22 00:42 Dextrose IV 12/13/23 22:44 0.5 mg/min .Q15H YESSENIA 16.67 mls/hr Administration 0.5 MG/MIN Insulin Aspart 0 units 12/14/22 08:00 12/14/22 12:39 Insulin Aspart 300 Units/3 Ml Insuln.Pen SUBCUT 12/14/23 07:59 2 units TID.WM.HS YESSENIA Administration Protocol Ipratropium Chualar 0.5 mg 12/14/22 08:00 12/14/22 11:56 Ipratropium Chualar 0.5 Mg/2.5 Ml Vial.Neb INHALATION 12/14/23 07:59 0.5 mg QID.RESP YESSENIA Administration Midodrine 5 mg 12/13/22 22:49 Midodrine 5 Mg Tablet PO 12/13/23 22:48 TID.7A.12P.5P PRN Hypotension Oxycodone/Acetaminophen 1 tab 12/13/22 22:49 Oxycodone/Acetaminophen 5-325 Mg Tablet PO Q4HR PRN Pain Pantoprazole Sodium 40 mg 12/14/22 09:00 12/14/22 08:17 Pantoprazole 40 Mg Tablet.Dr PO 12/14/23 08:59 40 mg DAILY YESSENIA Administration Pramipexole Dihydrochloride 0.5 mg 12/14/22 22:00 Pramipexole 0.5 Mg Tablet PO 12/14/23 21:59 HS YESSENIA Sennosides 1 tab 12/14/22 09:00 12/14/22 08:17 Sennosides 8.6 Mg Tablet PO 12/14/23 08:59 1 tab BID YESSENIA Administration A&P - Hospitalist Assessment/Plan (1) Diabetes mellitus with insulin therapy: (2) HTN (hypertension): (3) CAD (coronary artery disease): (4) Nonsustained ventricular tachycardia: (5) Bigeminy: Plan EKG from yesterday at 8 PM reviewed showing sinus rhythm with first-degree AV block and evidence of septal infarct 2D echo: Interpretation Summary Mild concentric left ventricular hypertrophy. Ejection Fraction = 50-55%. There is left ventricular diastolic dysfunction. The left atrium appears mildly dilated. Mild to moderate valvular aortic stenosis. Trace aortic regurgitation. There is trace tricuspid regurgitation. Small left pleural effusion. Assessment and plan 1. Bradycardia arrhythmias with. He sees bigeminy's and short runs of NSVT's Currently heart rhythm seems to be stable in normal sinus rhythm with first- degree AV block. The patient has been evaluated by cardiology and recommending IV amiodarone and to be switched to p.o. 400 mg twice daily No significant electrolyte imbalance noted 2D echo noted to show an ejection fraction of 50 to 55% with left diastolic dysfunction and mild concentric hypertrophy Patient can be otherwise transferred out of the ICU 2. End-stage renal disease on hemodialysis. 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, currently on midodrine COPD and chronic hypoxic respiratory failure on 3 L nasal cannula oxygen GERD Diabetes mellitus type 2, on ISS coverage Documented By: Erica Armenta MD 12/14/22 3891 Signed By: <Electronically signed by Erica Armenta MD> 12/14/22 1421 [facility] Work Phone: 1(173) 230-456011-04-2023 Consult note Author Narinder Toussaint [facility] December 14, 2022 1:59pm Note Date/Time December 14, 2022 1 :44pm [facility] [address] [place] [address] Nephrology Consult Note Signed Patient: Cinthya Wilson MR#: [id number] : 1945 Acct:[id number] Age/Sex: 77 / F Adm Date: 3 Loc: Room: [address] [place] [address] Type: ADM IN Attending Dr: Erica Armenta MD Copies to: MD Narinder Bourgeois II, MD Safwan Khader, MD~ Providers Consult Date: 12/14/22 Requesting Provider: Erica Armenta MD Primary Care Provider: Lily Aldrich II, MD HPI Reason for Consult: Management of ESRD and dialysis during hospital stay History of Present Illness: Ms. 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 Patient currently gets dialysis at [facility] dialysis unit on MWF schedule. Patient had recent admission on December 07 for syncopal episode and she was found to have episodes of nonsustained V. tach with prolonged QT interval. She was evaluated by cardiology and carvedilol was switched to metoprolol and she was set to follow-up with cardiology as outpatient. She did go to ER at [facility] for shortness of breath and generalized weakness. Temperature was 99.9 and she was found to be bradycardic 35 to 40 bpmwith sinus bradycardia rhythm with occasional bigeminal rhythm. Atropine was given with persistent arrhythmia with bigeminy and subsequently patient was started on amiodarone drip and transferred to [facility]. Patient was seen and examined the ICU. She is awake and comfortable with no shortness of breath. Blood pressure 126/59. Pulse 65/min currently on amiodarone drip. Patient had almost full hemodialysis yesterday, she stated that she and dialysisearly 10 minutes because of generalized weakness. She has no edema. Lab was reviewed. WBCs count 10.9, hemoglobin 10.2. Potassium 4.6 creatinine 3.37 and sodium 128 however glucose was mildly elevated as well 317 mg/dL. Troponin 48.8 pg/ml. EKG on admission showed sinus bradycardia with first-degree AV block. 2D echo showed ejection fraction 50% with mild to moderate aortic stenosis. Review of Systems Review of Systems All other systems reviewed & are negative unless noted below or in HPI [facility] Medical History (Updated 12/09/22 @ 09:40 by Dana Upton) Anemia Anxiety Anxiety and depression Arthritis AV fistula left CAD (coronary artery disease) Cataract had bilateral PHACO Cervical spinal stenosis CHF (congestive heart failure) Chronic back pain Chronic kidney disease COPD (chronic obstructive pulmonary disease) Diabetes GERD (gastroesophageal reflux disease) HTN (hypertension) Hyperlipidemia Insomnia Irregular heart rhythm prior to stent placement per pt report Lumbosacral spondylolysis LVH (left ventricular hypertrophy) Neck pain with history of cervical spinal surgery Neuropathy right thigh and feet Pneumonia Polymyalgia Skin cancer mohs procedure for removal Sleep apnea Surgical History H/O heart artery stent History of appendectomy History of back surgery lumbar History of x2 History of carpal tunnel release bilateral History of coronary angioplasty with insertion of stent History of D&C History of shoulder surgery rt shoulder History of tonsillectomy History of total abdominal hysterectomy and bilateral salpingo-oophorectomy Family History Father Heart disease Cancer Mother Cancer Diabetes Social History Smoking Status: Never smoker Substance Use Type: None Social History Comments: adult son Meds Medications & Allergies Allergies lisinopril Allergy (Verified 12/06/22 18:31) Cough Home Medications atorvastatin 40 mg tablet 40 mg PO QPM 11/19/16 [History Confirmed 12/13/22] multivitamin 1 tab PO DAILY 09/07/19 [History Confirmed 12/13/22] aspirin 81 mg tablet,delayed release 81 mg PO DAILY 11/25/19 [History Confirmed 12/13/22] cholecalciferol (vitamin D3) 25 mcg (1,000 unit) tablet (Vitamin D3) 25 mcg PO DAILY 11/25/19 [History Confirmed 12/13/22] citalopram 40 mg tablet 40 mg PO DAILY 11/25/19 [History Confirmed 12/13/22] albuterol sulfate 0.63 mg/3 mL solution for nebulization 0.63 mg inhalation QID PRN SOB 06/26/21 [History Confirmed 12/13/22] dextrose 40 % oral gel (Glutose-15) 0.6 g PO PRN PRN Hypoglycemia #112.5 grams 11/20/21 [Rx Confirmed 12/13/22] docusate sodium 100 mg capsule 100 mg PO BID #60 caps 11/20/21 [Rx Confirmed 12/13/22] insulin aspart U-100 100 unit/mL (3 mL) subcutaneous pen (Novolog FlexPen U-100 Insulin aspart) 1 sliding scale dose subcut TID.WM.HS #15 mL 11/20/21 [Rx Confirmed 12/13/22] pen needle, diabetic 32 gauge x 5/32 (BD Ultra-Fine Lexis Pen Needle) #100 ea 11/20/21 [Rx Confirmed 12/13/22] calcium acetate(phosphat bind) 667 mg capsule 667 mg PO TID.WITH.MEALS 60 days #240 caps 02/26/22 [Rx Confirmed 12/13/22] pantoprazole 40 mg tablet,delayed release 40 mg PO DAILY 05/17/22 [History Confirmed 12/13/22] sennosides 8.6 mg tablet (senna) 8.6 mg PO BID 05/17/22 [History Confirmed 12/13/22] diclofenac sodium 1 % topical gel (Voltaren Arthritis Pain) 4 g topical QID #0 grams 10/31/22 [Rx Confirmed 12/13/22] furosemide 20 mg tablet 60 mg PO BID 30 days #180 tabs 10/31/22 [Rx Confirmed 12/13/22] fluticasone fur. 100 mcg-umeclid 62.5 mcg-vilant 25 mcg inhalat.powder (Trelegy Ellipta) 1 ea inhalation DAILY 12/06/22 [History Confirmed 12/13/22] oxycodone-acetaminophen 5 mg-325 mg tablet 1 tab PO Q4-6H PRN Pain 12/06/22 [History Confirmed 12/13/22] pramipexole 0.5 mg tablet 0.5 mg PO HS 12/06/22 [History Confirmed 12/13/22] prednisone 10 mg tablet 10 mg PO DAILY 12/06/22 [History Confirmed 12/07/22] midodrine 5 mg tablet 5 mg PO TID PRN Hypotension 12/07/22 [History Confirmed 12/13/22] metoprolol succinate 25 mg tablet,extended release 24 hr 12.5 mg PO BID 30 days #30 tabs 12/09/22 [Rx Confirmed 12/13/22] Active Medications: Active Medications Amiodarone HCl (Amiodarone 200 Mg Tablet) 400 mg PO BID YESSENIA Stop: 12/14/23 10:09 Aspirin (Aspirin 81 Mg Tablet.) 81 mg PO DAILY YESSENIA Stop: 12/14/23 08:59 Last Admin: 12/14/22 08:17 Dose: 81 mg Atorvastatin Calcium (Atorvastatin 40 Mg Tablet) 40 mg PO QPM YESSENIA Stop: 12/14/23 20:59 Budesonide/Formoterol Fumarate (Budesonide/Formoterol 80-4.5 Mcg 60 Puff/6.9 Gm Hfa.Aer.Ad) 2 puff INHALATION BID YESSENIA Stop: 12/14/23 08:59 Last Admin: 12/14/22 10:30 Dose: 2 puff Calcium Acetate (Calcium Acetate 667 Mg Capsule) 667 mg PO TID.WITH.MEALS YESSENIA Stop: 12/14/23 07:59 Last Admin: 12/14/22 11:54 Dose: 667 mg Dextrose (Dextrose 50% In Water 25 Gm/50 Ml Syringe) 0 gm IV-PUSH PRN PRN PRN Reason: Hypoglycemia Stop: 12/13/23 23:58 Furosemide (Furosemide 20 Mg Tablet) 60 mg PO BID.WITH.MEALS YESSENIA Stop: 12/14/23 07:59 Last Admin: 12/14/22 08:17 Dose: 60 mg Glucose (Dextrose 40% Gel 15 Gm Tube) 0 gm PO PRN PRN PRN Reason: Hypoglycemia Stop: 12/13/23 23:58 Heparin Sodium (Porcine) (Heparin 5,000 Unit/Ml Vial) 5,000 unit SUBCUT Q8HR YESSENIA Stop: 12/13/23 21:59 Last Admin: 12/14/22 08:57 Dose: 5,000 unit Amiodarone HCl 450 mg/ (Dextrose) 250 mls @ 16.667 mls/hr IV .Q15H YESSENIA Stop: 12/13/23 22:44 Last Admin: 12/14/22 00:42 Dose: 0.5 mg/min, 16.67 mls/hr Insulin Aspart (Insulin Aspart 300 Units/3 Ml Insuln.Pen) 0 units SUBCUT TID.WM.HS [facility]; Protocol Stop: 12/14/23 07:59 Last Admin: 12/14/22 12:39 Dose: 2 units Ipratropium Chualar (Ipratropium Chualar 0.5 Mg/2.5 Ml Vial.Neb) 0.5 mg INHALATION QID.RESP YESSENIA Stop: 12/14/23 07:59 Last Admin: 12/14/22 11:56 Dose: 0.5 mg Midodrine (Midodrine 5 Mg Tablet) 5 mg PO TID.7A.12P.5P PRN PRN Reason: Hypotension Stop: 12/13/23 22:48 Oxycodone/Acetaminophen (Oxycodone/Acetaminophen 5-325 Mg Tablet) 1 tab PO Q6ESUGE PRN Reason: Pain Pantoprazole Sodium (Pantoprazole 40 Mg Tablet.) 40 mg PO DAILY [facility] Stop: 12/14/23 08:59 Last Admin: 12/14/22 08:17 Dose: 40 mg Pramipexole Dihydrochloride (Pramipexole 0.5 Mg Tablet) 0.5 mg PO [facility] Stop: 12/14/23 21:59 Sennosides (Sennosides 8.6 Mg Tablet) 1 tab PO BID [facility] Stop: 12/14/23 08:59 Last Admin: 12/14/22 08:17 Dose: 1 tab Exam Physical Exam Vital Signs: Temp Pulse Resp BP Pulse Ox O2 Del Method O2 Flow Rate 36.6 C 65 18 126/59 L 96 Nasal Cannula 3 12/14/22 12:51 12/14/22 12:51 12/14/22 12:51 12/14/22 12:51 12/14/22 12:51 12/14/22 12:51 12/14/22 12:51 Narrative: Constitutional: Up in the bed, awake with no respiratory distress. HEENT: She has mild pallor. Mucous membranes are moist. Cardiovascular: RRR, normal S1-S2, no gallop or rub, No JVD Respiratory: Diminished breath sounds. No crackles or wheezes. Gastrointestinal: Soft, non tender, positive bowel sounds. No palpable organs or masses Extremities: 1+ edema Skin: No rashes or bruises Musculoskeletal: Left shoulder tenderness. No swellings or inflammation Neurology: Awake, alert, oriented ?3, No focal motor or sensory deficits. Psych: Normal mood and affect Vascular access: Left arm AV fistula with good thrill. Results Labs 12/14/22 04:54 12/14/22 04:54 Labs: 12/13/22 12/14/22 22:03 04:54 BUN 45 H 51 H Creatinine 3.15 H 3.37 H Radiology Impressions Impressions - last 24 hours: Any impression(s) listed above is documentation that was entered by the reading physician into a diagnostic report(s) for Cinthya Wilson. I have reviewed the report(s) and am incorporating any findings in the treatment plan of this patient where applicable. ECG Data Attestation: I reviewed this ECG and interpreted as documented below: ECG Narrative: Third-degree AV block and sinus bradycardia A&P - Nephrology Assessment/Plan (1) ESRD on dialysis: Assessment/Problem Details: She has a ESRD due to the renovascular atherosclerotic disease and diabetes mellitus. She gets dialysis admitted for dialysis unit on MWF schedule. (2) Nonsustained ventricular tachycardia: Assessment/Problem Details: Patient had episodes of nonsustained ventricular tachycardia alternating with bradycardia that has been difficult to control even after switching carvedilol to metoprolol. Currently on amiodarone drip. Patient possibly has sick sinus syndrome. (3) Type 2 diabetes mellitus with diabetic chronic kidney disease: Assessment/Problem Details: She has insulin-dependent type 2 diabetes mellitus. (4) Benign hypertension with end-stage renal disease: Assessment/Problem Details: Her blood pressure is controlled. She appears to be euvolemic and well compensated. She occasionally takes midodrine with dialysis (5) Anemia of renal disease: Assessment/Problem Details: Her hemoglobin within the goal. (6) Secondary hyperparathyroidism: Assessment/Problem Details: She has a secondary hyperparathyroidism due to the ESRD and hyperphosphatemia. Currently take calcium acetate at home. Plan * Patient had full hemodialysis yesterday. Her syncopal episode is not related to dialysis, it is mainly sick sinus syndrome with intermittent nonsustained tachycardia and bradycardia with 40 degree AV block that is being addressed by cardiology. Patient is currently on amiodarone drip. She has normal potassium with no fluid overload. Next hemodialysis will be on Friday. * Patient on Aranesp with hemodialysis weekly for anemia, will continue the same dose. * All medications reviewed. Metoprolol was stopped because of bradycardia currently on amiodarone. Patient on calcium acetate for secondary hyperparathyroidism. * Monitor daily intake and output and renal panel. We will adjust medications and dialysis prescriptions accordingly. I appreciate this consultation we will be happy to follow the patient with you during hospital stay. Documented By: Narinder Toussaint MD 12/14/22 1341 Signed By: <Electronically signed by MD Narinder Toussaint> 12/14/22 1350 [facility] Work Phone: [phone]) 847-103811-04-2023 Consult note Author Hamlet Nayak [facility] December 14, 2022 11:06am Note Date/Time December 14, 2022 1 1:02am [facility] [address] [place] [address] Pulmonology Consult Note Signed Patient: Cinthya Wilson MR#: [id number] : 1945 Acct:[id number] Age/Sex: 77 / F Adm Date: 3 Loc: Room: [address] [place] [address] Type: ADM IN Attending Dr: Erica Armenta MD Copies to: MD Lily Vázquez II, MD Safwan Khader, MD~ HPI Date/Time of Consultation: Date of Service: 12/14/2022 Time of Service: 10:57 Consulting Provider: Hamlet Nayak Requesting Provider: Erica Armenta History of Present Illness History of present illness: Ms. Wilson is a 77 year old female seen at the request of the hospitalist service for critical care management. Patient was excepted in transfer from [facility] emergency department after her dialysis with patient complaining of dizziness and lightheadedness. 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 Patient was subsidy transferred to the [facility] intensive care. Note that patient had prior hospitalization at [facility] for similar condition with medical therapy previously having been beta-madhu. There is also note note for concern of sick sinus syndrome which made management with beta-blockers more difficult. Patient also has a prior history of coronary disease. Patient is a non-smoker but has a diagnosis of COPD per Dr. Cheek in [facility] with the patient normally on Trelegy. She is also reportedly on supplemental oxygen at 3 L/min at home. Patient reports that her respiratory status is improved and her presenting symptoms are improved. She has no other new complaints. Review of Systems Review of Systems All other systems reviewed & are negative unless noted below or in HPI [facility] Medical History (Updated 12/09/22 @ 09:40 by Dana Upton) Anemia Anxiety Anxiety and depression Arthritis AV fistula left CAD (coronary artery disease) Cataract had bilateral PHACO Cervical spinal stenosis CHF (congestive heart failure) Chronic back pain Chronic kidney disease COPD (chronic obstructive pulmonary disease) Diabetes GERD (gastroesophageal reflux disease) HTN (hypertension) Hyperlipidemia Insomnia Irregular heart rhythm prior to stent placement per pt report Lumbosacral spondylolysis LVH (left ventricular hypertrophy) Neck pain with history of cervical spinal surgery Neuropathy right thigh and feet Pneumonia Polymyalgia Skin cancer mohs procedure for removal Sleep apnea Surgical History H/O heart artery stent History of appendectomy History of back surgery lumbar History of x2 History of carpal tunnel release bilateral History of coronary angioplasty with insertion of stent History of D&C History of shoulder surgery rt shoulder History of tonsillectomy History of total abdominal hysterectomy and bilateral salpingo-oophorectomy Family History Father Heart disease Cancer Mother Cancer Diabetes Social History Smoking Status: Never smoker Substance Use Type: None Social History Comments: adult son Meds Medications and Allergies Allergies lisinopril Allergy (Verified 12/06/22 18:31) Cough Home Medications atorvastatin 40 mg tablet 40 mg PO QPM 11/19/16 [History Confirmed 12/13/22] multivitamin 1 tab PO DAILY 09/07/19 [History Confirmed 12/13/22] aspirin 81 mg tablet,delayed release 81 mg PO DAILY 11/25/19 [History Confirmed 12/13/22] cholecalciferol (vitamin D3) 25 mcg (1,000 unit) tablet (Vitamin D3) 25 mcg PO DAILY 11/25/19 [History Confirmed 12/13/22] citalopram 40 mg tablet 40 mg PO DAILY 11/25/19 [History Confirmed 12/13/22] albuterol sulfate 0.63 mg/3 mL solution for nebulization 0.63 mg inhalation QID PRN SOB 06/26/21 [History Confirmed 12/13/22] dextrose 40 % oral gel (Glutose-15) 0.6 g PO PRN PRN Hypoglycemia #112.5 grams 11/20/21 [Rx Confirmed 12/13/22] docusate sodium 100 mg capsule 100 mg PO BID #60 caps 11/20/21 [Rx Confirmed 12/13/22] insulin aspart U-100 100 unit/mL (3 mL) subcutaneous pen (Novolog FlexPen U-100 Insulin aspart) 1 sliding scale dose subcut TID.WM.HS #15 mL 11/20/21 [Rx Confirmed 12/13/22] pen needle, diabetic 32 gauge x 5/32 (BD Ultra-Fine Lexis Pen Needle) #100 ea 11/20/21 [Rx Confirmed 12/13/22] calcium acetate(phosphat bind) 667 mg capsule 667 mg PO TID.WITH.MEALS 60 days #240 caps 02/26/22 [Rx Confirmed 12/13/22] pantoprazole 40 mg tablet,delayed release 40 mg PO DAILY 05/17/22 [History Confirmed 12/13/22] sennosides 8.6 mg tablet (senna) 8.6 mg PO BID 05/17/22 [History Confirmed 12/13/22] diclofenac sodium 1 % topical gel (Voltaren Arthritis Pain) 4 g topical QID #0 grams 10/31/22 [Rx Confirmed 12/13/22] furosemide 20 mg tablet 60 mg PO BID 30 days #180 tabs 10/31/22 [Rx Confirmed 12/13/22] fluticasone fur. 100 mcg-umeclid 62.5 mcg-vilant 25 mcg inhalat.powder (Trelegy Ellipta) 1 ea inhalation DAILY 12/06/22 [History Confirmed 12/13/22] oxycodone-acetaminophen 5 mg-325 mg tablet 1 tab PO Q4-6H PRN Pain 12/06/22 [History Confirmed 12/13/22] pramipexole 0.5 mg tablet 0.5 mg PO HS 12/06/22 [History Confirmed 12/13/22] prednisone 10 mg tablet 10 mg PO DAILY 12/06/22 [History Confirmed 12/07/22] midodrine 5 mg tablet 5 mg PO TID PRN Hypotension 12/07/22 [History Confirmed 12/13/22] metoprolol succinate 25 mg tablet,extended release 24 hr 12.5 mg PO BID 30 days #30 tabs 12/09/22 [Rx Confirmed 12/13/22] Exam Physical Exam Vital Signs: Temp Pulse Resp BP Pulse Ox O2 Del Method O2 Flow Rate 97.5 F L 51 L 18 127/55 L 95 Nasal Cannula 3 12/14/22 08:00 12/14/22 09:00 12/14/22 09:00 12/14/22 09:00 12/14/22 09:00 12/14/22 09:00 12/14/22 09:00 Const General: cooperative Orientation: alert and awake HEENT Head: normal to inspection Ears: hearing grossly normal bilaterally and external ears normal Nose: external nose normal Face and sinus: normal facial exam Eyes Sclera: sclerae normal Neck Neck: normal visual inspection Resp Effort & Inspection: normal respiratory effort Auscultation: clear to auscultation bilaterally, diminished lung sounds, no rales, no rhonchi and no wheezes Cardio Rate: regular rate Rhythm: regular rhythm Heart Sounds: S1 normal, S2 normal and no murmurs GI Inspection: normal to inspection Palpation: soft and nontender General: deferred Skin General: no rashes or lesions noted (Warm and dry) Extrem General: no pedal edema Results Intake and Output I&O - Last 24 Hours: Intake & Output 12/13/22 12/14/22 12/14/22 23:59 07:59 15:59 Intake Total 150 / 150 Output Total 0 / 0 Balance 150 / 150 0 / 0 Weight 63.9 kg 63.9 kg Labs 12/14/22 04:54 12/14/22 04:54 Assessment/Plan (1) Nonsustained ventricular tachycardia: (2) COPD (chronic obstructive pulmonary disease): (3) Diabetes mellitus with insulin therapy: (4) Chronic combined systolic and diastolic CHF (congestive heart failure): (5) ESRD on dialysis: Plan Hospital day #1 for patient admitted to ICU on amiodarone drip with nonsustainedventricular tachycardia which was hemodynamically significant in patient with concerns for sick sinus syndrome as well as mildly reduced ejection fraction with moderate diastolic dysfunction and mild aortic stenosis with mild pulmonaryhypertension. Patient is stable hemodynamically in the ICU on an amiodarone drip without significant bradycardia. She is stable from a COPD perspective andfeels her respiratory status is stable on her baseline oxygen. I have little toadd from a critical care medicine perspective. We will be aware of the patient and will be available as needed but will follow peripherally and not visit with the patient on a daily basis. Documented By: Hamlet Nayak MD [id number] Signed By: <Electronically signed by MD Hamlet Nayak> 12/14/22 1100 [facility] Work Phone: 1(561) 233-575811-04-2023 Consult note Author Armando German [facility] December 14, 2022 10:11am Note Date/Time December 14, 2022 1 0:11am [facility] [address] [place] [address] Cardiology Consult Note Signed Patient: Cinthya Wilson MR#: [id number] : 1945 Acct:[id number] Age/Sex: 77 / F Adm Date: 3 Loc: Room: [address] [place] [address] Type: ADM IN Attending Dr: Erica Armenta MD Copies to: MD Erica Bourgeois II, MD William Patrick McGuinn, MD~ Cardiology HPI History of Present Illness Consult Date: 12/14/22 Reason for Consult: Nonsustained ventricular tachycardia with near syncope HPI: Ms. Wilson is a 77 year old female seen for the above She is an individual who had recently been hospitalized to [facility]. At that time she had problems with significant ventricular arrhythmias. Apparently there were significant couplets triplets and short runsof ventricular tachycardia. Therapy consisted of beta-blockers but she presents, again, with similar problems She apparently had been to dialysis on Friday. Upon returning home she became dizzy and lightheaded. On arrival to the emergency room in [facility] she was having a sinus beat followed by ventricular reentry. Typically she had one sinus beat followed by reentrant ventricular tachyarrhythmia 2-3 beats in length. We tried parenteral lidocaine but this did not work and thereafter parenteral amiodarone completely extinguished the reentrant phenomenon. She is now comfortable. Ventricular arrhythmias are completely resolved. Further review of the chart also demonstrates she has significant degree of sicksinus syndrome. Agents such as carvedilol and metoprolol have both been tried and thereafter scaled back because of profound sensitivity and bradycardia arrhythmia. Because of this I believe probably the beta-madhu should be completely avoided. Patient has a remote history of coronary disease. Intervention about 10 years ago single-vessel 1 stent. She also had an angiogram 1 or 2 years ago in [facility] no intervention and because of this we presume her CAD to be stable. Her ejection fraction, though, was not evaluated last admission and I believe it should be. This will shed light on the ventricular arrhythmia that has affectedher the previous admission as well as this admission. Review of Systems Review of Systems All other systems reviewed & are negative unless noted below or in HPI Constitutional Constitutional: Reports system reviewed and no additional complaints, except as documented Eyes Eyes: Reports system reviewed and no additional complaints, except as documented ENT Ears, Nose, Mouth, and Throat: Reports system reviewed and no additional complaints, except as documented Cardiovascular Cardiovascular: Reports as per HPI Respiratory Respiratory: Reports system reviewed and no additional complaints, except as documented Gastrointestinal Gastrointestinal: Reports system reviewed and no additional complaints, except as documented Genitourinary Genitourinary: Reports system reviewed and no additional complaints, except as documented Musculoskeletal Musculoskeletal: Reports system reviewed and no additional complaints, except asdocumented Integumentary/Breasts Skin/Breast: Reports system reviewed and no additional complaints, except as documented Neurologic Neurologic: Reports system reviewed and no additional complaints, except as documented Psychiatric Psychiatric: Reports system reviewed and no additional complaints, except as documented Endocrine Endocrine: Reports system reviewed and no additional complaints, except as documented Hematologic/Lymphatic Hematologic/Lymphatic: Reports system reviewed and no additional complaints, except as documented Allergic/Immunologic Allergic/Immunologic: Reports system reviewed and no additional complaints, except as documented [facility] Medical History (Updated 12/09/22 @ 09:40 by Dana Upton) Anemia Anxiety Anxiety and depression Arthritis AV fistula left CAD (coronary artery disease) Cataract had bilateral PHACO Cervical spinal stenosis CHF (congestive heart failure) Chronic back pain Chronic kidney disease COPD (chronic obstructive pulmonary disease) Diabetes GERD (gastroesophageal reflux disease) HTN (hypertension) Hyperlipidemia Insomnia Irregular heart rhythm prior to stent placement per pt report Lumbosacral spondylolysis LVH (left ventricular hypertrophy) Neck pain with history of cervical spinal surgery Neuropathy right thigh and feet Pneumonia Polymyalgia Skin cancer mohs procedure for removal Sleep apnea Surgical History H/O heart artery stent History of appendectomy History of back surgery lumbar History of x2 History of carpal tunnel release bilateral History of coronary angioplasty with insertion of stent History of D&C History of shoulder surgery rt shoulder History of tonsillectomy History of total abdominal hysterectomy and bilateral salpingo-oophorectomy Family History Father Heart disease Cancer Mother Cancer Diabetes Social History Smoking Status: Never smoker Substance Use Type: None Social History Comments: adult son Meds Medications and Allergies Allergies lisinopril Allergy (Verified 12/06/22 18:31) Cough Home Medications atorvastatin 40 mg tablet 40 mg PO QPM 11/19/16 [History Confirmed 12/13/22] multivitamin 1 tab PO DAILY 09/07/19 [History Confirmed 12/13/22] aspirin 81 mg tablet,delayed release 81 mg PO DAILY 11/25/19 [History Confirmed 12/13/22] cholecalciferol (vitamin D3) 25 mcg (1,000 unit) tablet (Vitamin D3) 25 mcg PO DAILY 11/25/19 [History Confirmed 12/13/22] citalopram 40 mg tablet 40 mg PO DAILY 11/25/19 [History Confirmed 12/13/22] albuterol sulfate 0.63 mg/3 mL solution for nebulization 0.63 mg inhalation QID PRN SOB 06/26/21 [History Confirmed 12/13/22] dextrose 40 % oral gel (Glutose-15) 0.6 g PO PRN PRN Hypoglycemia #112.5 grams 11/20/21 [Rx Confirmed 12/13/22] docusate sodium 100 mg capsule 100 mg PO BID #60 caps 11/20/21 [Rx Confirmed 12/13/22] insulin aspart U-100 100 unit/mL (3 mL) subcutaneous pen (Novolog FlexPen U-100 Insulin aspart) 1 sliding scale dose subcut TID.WM.HS #15 mL 11/20/21 [Rx Confirmed 12/13/22] pen needle, diabetic 32 gauge x 5/32 (BD Ultra-Fine Lexis Pen Needle) #100 ea 11/20/21 [Rx Confirmed 12/13/22] calcium acetate(phosphat bind) 667 mg capsule 667 mg PO TID.WITH.MEALS 60 days #240 caps 02/26/22 [Rx Confirmed 12/13/22] pantoprazole 40 mg tablet,delayed release 40 mg PO DAILY 05/17/22 [History Confirmed 12/13/22] sennosides 8.6 mg tablet (senna) 8.6 mg PO BID 05/17/22 [History Confirmed 12/13/22] diclofenac sodium 1 % topical gel (Voltaren Arthritis Pain) 4 g topical QID #0 grams 10/31/22 [Rx Confirmed 12/13/22] furosemide 20 mg tablet 60 mg PO BID 30 days #180 tabs 10/31/22 [Rx Confirmed 12/13/22] fluticasone fur. 100 mcg-umeclid 62.5 mcg-vilant 25 mcg inhalat.powder (Trelegy Ellipta) 1 ea inhalation DAILY 12/06/22 [History Confirmed 12/13/22] oxycodone-acetaminophen 5 mg-325 mg tablet 1 tab PO Q4-6H PRN Pain 12/06/22 [History Confirmed 12/13/22] pramipexole 0.5 mg tablet 0.5 mg PO HS 12/06/22 [History Confirmed 12/13/22] prednisone 10 mg tablet 10 mg PO DAILY 12/06/22 [History Confirmed 12/07/22] midodrine 5 mg tablet 5 mg PO TID PRN Hypotension 12/07/22 [History Confirmed 12/13/22] metoprolol succinate 25 mg tablet,extended release 24 hr 12.5 mg PO BID 30 days #30 tabs 12/09/22 [Rx Confirmed 12/13/22] Exam Physical Exam Vital Signs: Temp Pulse Resp BP Pulse Ox O2 Del Method O2 Flow Rate 97.5 F L 51 L 18 127/55 L 95 Nasal Cannula 3 12/14/22 08:00 12/14/22 09:00 12/14/22 09:00 12/14/22 09:00 12/14/22 09:00 12/14/22 09:00 12/14/22 09:00 HEENT Head: normal to inspection Ears: hearing grossly normal bilaterally Nose: external nose normal and nares normal Face and sinus: normal facial exam Mouth: oral mucosae normal and tongue normal Eyes Conjunctivae: conjunctivae normal Sclera: sclerae normal Neck Neck: normal visual inspection Carotids: normal carotid upstroke Lymphatic: no lymphadenopathy noted Chest Chest palpation & inspection: normal inspection of the chest Resp Effort & Inspection: normal respiratory effort Auscultation: clear to auscultation bilaterally Cardio Rate: regular rate Rhythm: regular rhythm Heart Sounds: S1 normal and S2 normal GI Inspection: normal to inspection Palpation: soft Skin General: no rashes or lesions noted Neuro General: patient alert, patient awake and patient oriented x3 Cognition: normal cognition Motor: muscle tone normal throughout Sensory Exam: no sensory deficits noted Results Labs 12/14/22 04:54 12/14/22 04:54 Lab results: CBC 12/13/22 12/14/22 Range/Units 22:03 04:54 RBC 3.50 L 3.51 L (3.60-5.00) X10E6/uL Hgb 10.1 L 10.2 L (11.8-15.4) g/dL Hct 32.3 L 32.1 L (34.0-46.4) % Plt Count 312 321 (150-450) x10E3/uL Neut # (Auto) 12.4 H 9.4 H (1.8-7.7) x10E3/uL Lymph # (Auto) 0.5 L 1.0 (1.00-4.8) x10E3/uL Mchenry # (Auto) 0.4 0.6 (0.0-0.8) x10E3/uL Eos # (Auto) 0.0 0.0 (0.0-0.45) x10E3/uL Baso # (Auto) 0.0 0.0 (0.0-0.2) x10E3/uL Comprehensive Metabolic Panel 12/13/22 12/14/22 Range/Units 22:03 04:54 Sodium 129 L 128 L (136-145) mmol/L Potassium 4.8 4.6 (3.5-5.1) mmol/L Chloride 89 L 90 L (98-107) mmol/L Carbon Dioxide 21.1 25.1 (21.0-31.0) mmol/L BUN 45 H 51 H (7-25) mg/dL Creatinine 3.15 H 3.37 H (0.60-1.20) mg/dL Glucose 328 H 317 H (70-100) mg/dL Calcium 8.6 9.1 (8.6-10.3) mg/dL Intake and Output 12/13/22 12/14/22 12/14/22 23:59 07:59 15:59 Intake Total 150 / 150 Output Total 0 / 0 Balance 150 / 150 0 / 0 Intake: Oral 150 / 150 Output: Urine 0 / 0 Other: Weight 63.9 kg 63.9 kg Date of Last Bowel Movement 12/12/22 12/12/22 Patient Weight 12/14/22 23:59 Weight 63.9 kg A&P - Cardiology (1) Nonsustained ventricular tachycardia: Assessment/Problem Details: Patient had this arrhythmia problem in the previous admission and again this admission. Clearly beta-blockade is not effective at preventing this recurring arrhythmia. Because of this amiodarone has been implemented and after short course he has completely extinguished the reentrant arrhythmia. Because of thiswe will continue it. Code(s): I47.29 - Other ventricular tachycardia (2) ESRD on dialysis: Assessment/Problem Details: Because of dialysis amiodarone is the only safe and/or effective antiarrhythmic. All others are renally excreted. Code(s): N18.6 - End stage renal disease; Z99.2 - Dependence on renal dialysis (3) CAD (coronary artery disease): Assessment/Problem Details: Stable. Recent evaluation angiographically. No intervention. Also a trivial troponin rise in a dialysis patient is consistent with stable coronary disease. Code(s): I25.10 - Atherosclerotic heart disease of [place] coronary artery without angina pectoris (4) Syncope: Assessment/Problem Details: Somewhat troublesome. I fear the patient could be having symptomatic ventricular arrhythmias. Because of this I believe the amiodarone is an effective intervention to prevent recurrent malignant ventricular tachyarrhythmia. Because of her recent history of syncope and the arrhythmia I have ordered an echocardiogram. Code(s): R55 - Syncope and collapse Plan Infuse remaining bag of amiodarone. Initiate amiodarone 400 mg twice daily. Increase activity. Telemetry if needed. Probable discharge Friday. Documented By: Armando German MD [id number] Signed By: <Electronically signed by MD Armando German> 12/14/22 1011 [facility] Work Phone: 1(726) 107-661411-03-2023 History and physical note Author Jamal Schaefer [facility] December 13, 2022 8:55pm Note Date/Time December 13, 2022 8 :31pm [facility] [address] [place] [address] Hospitalist H&P Signed Patient: Cinthya Wilson MR#: [id number] : 1945 Acct:[id number] Age/Sex: 77 / F Adm Date: 3 Loc: Room: [address] [place] [address] Type: ADM IN Attending Dr: Eric Thomas DO Copies to: MD Lily Garrett II, MD Kyle T Cleveland, DO~ HPI DATE OF EXAMINATION: 12/13/22 HISTORY OF PRESENT ILLNESS: Patient is a 77-year-old female, with a number of chronic medical comorbidities noted below, who was sent to the emergency department of [facility] from hemodialysis after failing short of breath. She apparently completed the hemodialysis session. It appears that she has been wearing the heart monitor, ordered by her dental office receptionist in [place], reason being unclear. She feels mildlyshort of breath at times, but no chest pain. No respiratory tract symptoms, fever or chills reported. Evaluation in [place] ED showed a temperature of 99.9, bradycardia 35-40, rhythm being sinus bradycardia with occasional bigeminal rhythm. Atropine was given with some improvement to 50s. Case was discussed with cardiology Dr. German who requested patient be administered lidocaine bolus. That was not effective in controlling the arrhythmia, and subsequently amiodarone drip was started. It is noted that the patient was hospitalized in our facility couple of days ago, on the cardiology service for syncope. Evaluation was fairly unremarkable. Discharge home with event monitor Past medical history End-stage renal disease on hemodialysis CAD status post PTCI x110 years prior HFmrEF Hypertension COPD and chronic hypoxic respiratory failure on 3 L nasal cannula oxygen GERD Diabetes mellitus type 2 10 point review of systems negative except as noted Physical exam Patient seen in the ICU Patient appears comfortable, in no distress. Skin is normally colored, no icterus, cyanosis or edema noted. Capillary refill is normal. Joints are without any effusion. Abdomen is soft, benign, no rebound or rigidity. No organomegaly. Bowel sounds present. Heart regular, no gallop, rub or JVD. Peripheral pulses present bilaterally. There is a systolic murmur 2/6 left and a border. [id number] ultrasound shows mild LV dysfunction. Lungs are minimal crackles in bases. She is on 3 L oxygen which is chronic HENT normal Neurological: Patient is awake. Cognition is normal. Cranial nerves are intact. Power is symmetric all extremities, with no focal motor deficit identified on a cursory exam. Psych: affect is normal. EKG available for review indicate what appears to be a sinus rhythm with bigeminy Chest x-ray mild right-sided pleural effusion with atelectasis Laboratory work-up was reviewed notable for sodium 124, creatinine 3.1, troponinnegative Assessment and plan 1. Bradycardia arrhythmia, with sinus bradycardia and bigeminal rhythm. Admit patient to the hospital. Continue amiodarone drip as requested by cardiology service. Recheck labs and follow-up troponins. Cardiology consult in a.m. 2. End-stage renal disease on hemodialysis. Nephrology consult to manage Continue management of her other chronic comorbidities: End-stage renal disease on hemodialysis CAD status post PTCI x110 years prior HFmrEF Hypertension COPD and chronic hypoxic respiratory failure on 3 L nasal cannula oxygen GERD Diabetes mellitus type 2 [facility] Medical History (Updated 12/09/22 @ 09:40 by Dana Upton) Anemia Anxiety Anxiety and depression Arthritis AV fistula left CAD (coronary artery disease) Cataract had bilateral PHACO Cervical spinal stenosis CHF (congestive heart failure) Chronic back pain Chronic kidney disease COPD (chronic obstructive pulmonary disease) Diabetes GERD (gastroesophageal reflux disease) HTN (hypertension) Hyperlipidemia Insomnia Irregular heart rhythm prior to stent placement per pt report Lumbosacral spondylolysis LVH (left ventricular hypertrophy) Neck pain with history of cervical spinal surgery Neuropathy right thigh and feet Pneumonia Polymyalgia Skin cancer mohs procedure for removal Sleep apnea Surgical History H/O heart artery stent History of appendectomy History of back surgery lumbar History of x2 History of carpal tunnel release bilateral History of coronary angioplasty with insertion of stent History of D&C History of shoulder surgery rt shoulder History of tonsillectomy History of total abdominal hysterectomy and bilateral salpingo-oophorectomy Family History Father Heart disease Cancer Mother Cancer Diabetes Social History Smoking Status: Never smoker Substance Use Type: None Social History Comments: adult son Meds Medications and Allergies Allergies lisinopril Allergy (Verified 12/06/22 18:31) Cough Home Medications atorvastatin 40 mg tablet 40 mg PO QPM 11/19/16 [History Confirmed 12/06/22] multivitamin 1 tab PO DAILY 09/07/19 [History Confirmed 12/06/22] aspirin 81 mg tablet,delayed release 81 mg PO DAILY 11/25/19 [History Confirmed 12/06/22] cholecalciferol (vitamin D3) 25 mcg (1,000 unit) tablet (Vitamin D3) 25 mcg PO DAILY 11/25/19 [History Confirmed 12/06/22] citalopram 40 mg tablet 40 mg PO DAILY 11/25/19 [History Confirmed 12/06/22] albuterol sulfate 0.63 mg/3 mL solution for nebulization 0.63 mg inhalation QID PRN SOB 06/26/21 [History Confirmed 12/06/22] dextrose 40 % oral gel (Glutose-15) 0.6 g PO PRN PRN Hypoglycemia #112.5 grams 11/20/21 [Rx Confirmed 12/06/22] docusate sodium 100 mg capsule 100 mg PO BID #60 caps 11/20/21 [Rx Confirmed 12/06/22] insulin aspart U-100 100 unit/mL (3 mL) subcutaneous pen (Novolog FlexPen U-100 Insulin aspart) 1 sliding scale dose subcut TID.WM.HS #15 mL 11/20/21 [Rx Confirmed 12/06/22] pen needle, diabetic 32 gauge x 5/32 (BD Ultra-Fine Lexis Pen Needle) #100 ea 11/20/21 [Rx Confirmed 12/06/22] calcium acetate(phosphat bind) 667 mg capsule 667 mg PO TID.WITH.MEALS 60 days #240 caps 02/26/22 [Rx Confirmed 12/06/22] pantoprazole 40 mg tablet,delayed release 40 mg PO DAILY 05/17/22 [History Confirmed 12/06/22] sennosides 8.6 mg tablet (senna) 8.6 mg PO BID 05/17/22 [History Confirmed 12/06/22] diclofenac sodium 1 % topical gel (Voltaren Arthritis Pain) 4 g topical QID #0 grams 10/31/22 [Rx Confirmed 12/06/22] furosemide 20 mg tablet 60 mg PO BID 30 days #180 tabs 10/31/22 [Rx Confirmed 12/06/22] fluticasone fur. 100 mcg-umeclid 62.5 mcg-vilant 25 mcg inhalat.powder (Trelegy Ellipta) 1 ea inhalation DAILY 12/06/22 [History Confirmed 12/06/22] oxycodone-acetaminophen 5 mg-325 mg tablet 1 tab PO Q4-6H PRN Pain 12/06/22 [History Confirmed 12/06/22] pramipexole 0.5 mg tablet 0.5 mg PO HS 12/06/22 [History Confirmed 12/06/22] prednisone 10 mg tablet 10 mg PO DAILY 12/06/22 [History Confirmed 12/07/22] midodrine 5 mg tablet 5 mg PO TID PRN Hypotension 12/07/22 [History Confirmed 12/07/22] metoprolol succinate 25 mg tablet,extended release 24 hr 12.5 mg PO BID 30 days #30 tabs 12/09/22 [Rx] Exam Physical Exam Vital Signs: Temp Pulse Resp BP Pulse Ox O2 Del Method O2 Flow Rate 98.2 F 81 20 110/53 L 98 Nasal Cannula 3 12/13/22 20:21 12/13/22 20:21 12/13/22 20:21 12/13/22 20:21 12/13/22 20:21 12/13/22 20:21 12/13/22 20:21 Assessment & Plan IP vs OBS Justification Based on differential dx, clinical care plan, and risk of adverse events, if untreated, in my clinical judgement this patient requires an acute care setting as: INPATIENT because of an expectation of an over 2 midnight stay. Estimated length of stay (# of days): 3 Documented By: Jamal Schaefer MD 12/13/222029 Signed By: <Electronically signed by Jamal Schaefer MD> 12/13/222054 [facility] Work Phone: 1(653) 538-660210-30-2023 Progress note Author Edie Michel [facility] December 09, 2022 3:34pm Note Date/Time December 09, 2022 3 :32pm [facility] [address] [place], [place] [id number] Cardiology Progress Note Signed Patient: Cinthya Wilson MR#: [id number] : 1945 Acct:[id number] Age/Sex: 77 / F Adm Date: 3 Loc: 4N Room: 8X1372-8 Type: ADM IN Attending Dr: Teresa Pagan MD Copies to: ~ Date of Service: 12/09/2022 Subjective Interval history: Ms. Wilson is a 77 year old female with PMH significant for CAD status post PCI x1 about 10 years ago in [place], ESRD on HD, hypertension, hyperlipidemia, CHF, COPD on 3 L nasal cannula who presented to the ED after she had a syncopal episode and fell hitting the back of her head. She had been to dialysis earlier in the day and blood pressure was stable following the dialysis session without any dizziness or lightheadedness. She was at home for several hours and felt fine however when she was clearing the table after dinner she felt sudden onset dizziness and passed out. She denied palpitations, chest pain, shortness of breath prior to this. On arrival she had CT head and cervical spine that were unremarkable. She was noted to have multiple runs of nonsustained VT in the ED. Her initial EKG showed normal sinus rhythm with first-degree AV block and multiple PVCs. Second EKG showed triplets and couplets. Since arrival to the floor she has not had much ventricular ectopy. She is in sinus rhythm in the 50s and 60s. No runs of VT. Potassium 3.9, magnesium 2.0. She is currently oncarvedilol 3.125 mg twice daily and midodrine 5 mg 3 times daily as needed. Shestates she did not take midodrine after dialysis session yesterday. Patient was recently admitted for mechanical fall and was noted to have episodesof nonsustained VT. She was started on amiodarone briefly but now stopped due to bradycardia. Carvedilol dose had been decreased and she had been started on midodrine Interval history 12/08/2022: Patient noted to be bradycardic overnight on telemetry. Heart rate as low as 37. Patient was asymptomatic. Interval history 12/09/2022: No further runs of VT noted. Has few PVCs. No episodes of bradycardia. She has had dialysis today and currently reports of feeling pains all over which she states is typical for her. Exam Physical Exam Vital Signs: Temp Pulse Resp BP Pulse Ox O2 Del Method O2 Flow Rate 97.0 F L 75 18 132/63 98 Nasal Cannula 3 12/09/22 14:09 12/09/22 14:09 12/09/22 14:09 12/09/22 14:09 12/09/22 14:09 12/09/22 14:09 12/09/22 14:09 Narrative: GEN: AAOx3. No acute distress. Sitting up in the chair. Neck: No JVD. Lungs: Clear to auscultation bilaterally Heart: Regular rate and rhythm. Normal S1 and S2. No murmurs or rubs appreciated. Abdomen: Soft, nontender, nondistended, bowel sounds present. Extremities: No BLE edema. Neuro: AAOx3. No focal deficits. Objective Labs 12/09/22 05:11 12/09/22 05:11 Labs: Laboratory Results - last 24 hr 12/08/22 12/08/22 12/09/22 16:36 20:53 05:11 Corrected WBC 10.4 Uncorrected WBC Count 10.4 RBC 3.77 Hgb 10.8 L Hct 34.5 MCV 91.3 MCH 28.6 MCHC 31.3 L RDW 17.5 H Plt Count 405 MPV 7.4 Neut % (Auto) 77.6 Lymph % (Auto) 13.7 Mchenry % (Auto) 6.8 Eos % (Auto) 1.4 Baso % (Auto) 0.5 Nucleat RBC Rel Count 0.0 Neut # (Auto) 8.1 H Lymph # (Auto) 1.4 Mchenry # (Auto) 0.7 Eos # (Auto) 0.1 Baso # (Auto) 0.0 PHA Creatinine Clear Sodium Potassium Chloride Carbon Dioxide Anion Gap BUN Creatinine Est GFR (CKD-EPI) Glucose POC Glucose 334 294 Calcium Magnesium 12/09/22 12/09/22 12/09/22 05:11 07:48 13:39 Corrected WBC Uncorrected WBC Count RBC Hgb Hct MCV MCH MCHC RDW Plt Count MPV Neut % (Auto) Lymph % (Auto) Mchenry % (Auto) Eos % (Auto) Baso % (Auto) Nucleat RBC Rel Count Neut # (Auto) Lymph # (Auto) Mchenry # (Auto) Eos # (Auto) Baso # (Auto) PHA Creatinine Clear 7.96 Sodium 128 L Potassium 4.4 Chloride 88 L Carbon Dioxide 26.7 Anion Gap 17.7 H BUN 73 H Creatinine 5.27 H D Est GFR (CKD-EPI) 7.995 Glucose 200 H POC Glucose 210 172 Calcium 9.5 Magnesium 1.9 A&P - Cardiology (1) Diabetes: Code(s): E11.9 - Type 2 diabetes mellitus without complications Status: Acute (2) HTN (hypertension): Code(s): I10 - Essential (primary) hypertension Status: Acute (3) CAD (coronary artery disease): Code(s): I25.10 - Atherosclerotic heart disease of [place] coronary artery without angina pectoris Status: Acute (4) Acute electrocardiogram changes: Code(s): R94.31 - Abnormal electrocardiogram [ECG] [EKG] Status: Acute (5) ESRD (end stage renal disease): Code(s): N18.6 - End stage renal disease Status: Acute (6) Syncope: Code(s): R55 - Syncope and collapse Status: Acute Plan Ms. Wilson is a 77 year old female with PMH significant for CAD status post PCI x1 about 10 years ago in [place], ESRD on HD, hypertension, hyperlipidemia, CHF, COPD on 3 L nasal cannula who presented to the ED after she had a syncopal episode and fell hitting the back of her head and was found to have nonsustained VT. Her initial EKG showed normal sinus rhythm with first-degree AV block and multiple PVCs. Second EKG showed triplets and couplets. Since arrival to the floor she has not had much ventricular ectopy. She is in sinus rhythm in the 50s and 60s. No runs of VT. Potassium 3.9, magnesium 2.0. She is currently on carvedilol 3.125 mg twice daily and midodrine 5 mg 3 times daily as needed. She states she did not take midodrine after dialysis session yesterday. Assessment: Syncope-concern for arrhythmia versus vasovagal episode l in the setting of hypotension following dialysis Nonsustained VT ESRD on HD PAD status post PCI Hypertension Hyperlipidemia Recommendations: -Doing well on metoprolol succinate 12.5 mg twice daily. No further episodes of bradycardia. Very few PVCs noted on telemetry. No further runs of nonsustained VT. BP stable. -Recommend 2-week event monitor on discharge. -Continue midodrine 5 mg 3 times daily as needed with dialysis -Patient has follow-up with primary dental office receptionist-Dr. Lutz in [place] on 01/01/2023 Documented By: Edie Michel MD 12/09/22 1529 Signed By: <Electronically signed by Edie Michel MD> 12/09/22 1533 [facility] Work Phone: [phone]) 586-373110-30-2023 Progress note Author Narinder Toussaint [facility] December 09, 2022 2:57pm Note Date/Time December 09, 2022 2 :57pm [facility] [address] [place] [address] Nephrology Progress Note Signed Patient: Cinthya Wilson MR#: [id number] : 1945 Acct:[id number] Age/Sex: 77 / F Adm Date: 3 Loc: 4 Room: 3G2286-0 Type: ADM IN Attending Dr: Teresa Pagan MD Copies to: ~ Date of Service: 12/09/2022 Subjective Subjective Narrative: This is a 77-year female with a medical history of CAD, ESRD, HTN, CHF, COPD, DM, dyslipidemia, anemia of renal disease and secondary hyperparathyroidism was admitted after syncopal episode. On evaluation in emergency room patient had a CT brain and cervical spine which showed no acute finding. EKG shows prolonged QT interval. She was found to have multiple episodes of nonsustained V. tach ontelemetry. Patient was admitted at [facility] in October 2022 for fall and was also found to have a nonsustained V. tach. She was seen by the cardiology at the time. 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 She currently goes to the [facility] dialysis unit 3 times a week on MWF schedule. She is currently has AV fistula as a dialysis access. Patientreported she had at home routine hemodialysis yesterday and has no incident during or after dialysis. Nephrology is consulted for ESRD management during the hospital stay. Interval history Patient is being seen and examined on hemodialysis. She is being managed by cardiology for nonsustained V. tach and intermittent bradycardia. Metoprolol was decreased to 12.5 mg twice a day. She used to be on carvedilol that was discontinued and replaced by metoprolol. Heart rate has improved between 60s to 70/min. Blood pressure stable 130s over 60s. Cardiologyalso recommended outpatient Holter monitor for 2 weeks. Denies any chest pain. No shortness of breath. Exam Physical Exam Vital Signs: Temp Pulse Resp BP Pulse Ox O2 Del Method O2 Flow Rate 36.1 C L 75 18 132/63 98 Nasal Cannula 3 12/09/22 14:09 12/09/22 14:09 12/09/22 14:09 12/09/22 14:12/09/22 14:12/09/22 14:09 12/09/22 14:09 Narrative: Constitutional: Up in the bed, awake with no respiratory distress. HEENT: She has mild pallor. Mucous membranes are moist. Cardiovascular: RRR, normal S1-S2, no gallop or rub, No JVD Respiratory: Diminished breath sounds. No crackles or wheezes. Gastrointestinal: Soft, non tender, positive bowel sounds. No palpable organs or masses Extremities: 1+ edema Skin: No rashes or bruises Musculoskeletal: Left shoulder tenderness. No swellings or inflammation Neurology: Awake, alert, oriented ?3, No focal motor or sensory deficits. Psych: Normal mood and affect Vascular access: Left arm AV fistula with good thrill. Objective Intake and Output I&O: Intake & Output 12/06/22 12/07/22 12/08/22 12/09/22 23:59 23:59 23:59 23:59 Intake Total 960 / 960 150 / 150 1100 / 1100 Output Total 0 / 0 3006 / 3006 Balance 960 / 960 150 / 150 -1906 / -1906 Weight 59.3 kg 59.3 kg 60.5 kg 61.2 kg Meds and Allergies Meds: Active Medications Albuterol (Albuterol Neb 2.5 Mg/3 Ml Vial.Neb) 0.63 mg INHALATION QID PRN PRN Reason: Shortness Of Breath Stop: 12/07/23 05:33 Last Admin: 12/09/22 08:38 Dose: 0.63 mg Aspirin (Aspirin 81 Mg Tablet.) 81 mg PO DAILY YESSENIA Stop: 12/07/23 08:59 Last Admin: 12/09/22 14:10 Dose: 81 mg Atorvastatin Calcium (Atorvastatin 40 Mg Tablet) 40 mg PO QPM YESSENIA Stop: 12/07/23 20:59 Last Admin: 12/08/22 21:02 Dose: 40 mg Budesonide/Formoterol Fumarate (Budesonide/Formoterol 80-4.5 Mcg 60 Puff/6.9 Gm Hfa.Aer.Ad) 2 puff INHALATION BID YESSENIA Stop: 12/07/23 08:59 Last Admin: 12/09/22 08:36 Dose: 2 puff Calcium Acetate (Calcium Acetate 667 Mg Capsule) 667 mg PO TID.WITH.MEALS [facility] Stop: 12/07/23 07:59 Last Admin: 12/09/22 14:27 Dose: 667 mg Darbepoetin Theodore (Darbepoetin Theodore In Polysorbat 40 Mcg/Ml Vial) 80 mcg IV-PUSHWe@1100 [facility] Stop: 12/11/23 10:59 Diclofenac Sodium (Diclofenac Sodium 1% Gel 50 Gm Tube) 4 gm TOPICAL QID YESSENIA Stop: 12/07/23 08:59 Last Admin: 12/09/22 14:17 Dose: Not Given Docusate Sodium (Docusate 100 Mg Capsule) 100 mg PO BID YESSENIA Stop: 12/07/23 08:59 Last Admin: 12/09/22 14:13 Dose: Not Given Glucose (Dextrose 40% Gel 15 Gm Tube) 0.6 gm PO PRN PRN PRN Reason: Hypoglycemia Stop: 12/07/23 05:09 Heparin Sodium (Porcine) (Heparin 5,000 Unit/Ml Vial) 5,000 unit SUBCUT Q8HR YESSENIA Stop: 12/08/23 21:59 Last Admin: 12/09/22 08:40 Dose: 5,000 unit Heparin Sodium (Porcine) (Heparin 10,000 Unit/10 Ml Vial) 2,000 unit IV PRN PRN PRN Reason: Dialysis Stop: 12/09/23 08:58 Last Admin: 12/09/22 10:45 Dose: 2,000 unit Heparin Sodium (Porcine) (Heparin 10,000 Unit/10 Ml Vial) 1,000 unit IV PRN PRN PRN Reason: Dialysis Stop: 12/09/23 08:58 Last Admin: 12/09/22 10:45 Dose: 1,000 unit Sodium Chloride (0.9% Sodium Chloride 1,000 Ml) 1,000 mls @ 0 mls/hr MISCELLANE.Q0M PRN PRN Reason: Dialysis Stop: 12/09/23 08:58 Last Infusion: 12/09/22 10:46 Dose: Infused Insulin Aspart (Insulin Aspart 300 Units/3 Ml Insuln.Pen) 0 units SUBCUT TID.[facility]; Protocol Stop: 12/07/23 07:59 Last Admin: 12/09/22 14:16 Dose: Not Given Ipratropium Chualar (Ipratropium Chualar 0.5 Mg/2.5 Ml Vial.Neb) 0.5 mg INHALATION QID [facility] Stop: 12/07/23 08:59 Last Admin: 12/09/22 08:37 Dose: 0.5 mg Metoprolol Succinate (Metoprolol Succinate 25 Mg Tab.Er.24h) 12.5 mg PO BID [facility] Stop: 12/08/23 12:59 Last Admin: 12/09/22 14:27 Dose: 12.5 mg Midodrine (Midodrine 5 Mg Tablet) 5 mg PO TID PRN PRN Reason: Hypotension Stop: 12/07/23 08:59 Multivitamins (Multivitamin 1 Tab Tablet) 1 tab PO DAILY [facility] Stop: 12/07/23 08:59 Last Admin: 12/09/22 14:11 Dose: 1 tab Oxycodone/Acetaminophen (Oxycodone/Acetaminophen 5-325 Mg Tablet) 1 tab PO Q6H PRN PRN Reason: Pain Last Admin: 12/09/22 14:25 Dose: 1 tab Pantoprazole Sodium (Pantoprazole 40 Mg Tablet.Dr) 40 mg PO DAILY [facility] Stop: 12/07/23 08:59 Last Admin: 12/09/22 14:10 Dose: 40 mg Pramipexole Dihydrochloride (Pramipexole 0.5 Mg Tablet) 0.5 mg PO [facility] Stop: 12/07/23 21:59 Last Admin: 12/08/22 21:02 Dose: 0.5 mg Prednisone (Prednisone 10 Mg Tablet) 10 mg PO DAILY YESSENIA Stop: 12/10/22 08:59 Last Admin: 12/09/22 14:11 Dose: 10 mg Sennosides (Sennosides 8.6 Mg Tablet) 1 tab PO BID YESSENIA Stop: 12/07/23 08:59 Last Admin: 12/09/22 14:12 Dose: Not Given Sodium Chloride (Sodium Chloride 0.9 % 10 Ml Syringe) 0 ml IV-PUSH PRN PRN PRN Reason: Flush Stop: 12/06/23 18:30 Last Admin: 12/09/22 10:45 Dose: 10 ml Sodium Chloride (Sodium Chloride 0.9 % 10 Ml Syringe) 0 ml IV-PUSH PRN PRN PRN Reason: Flush Stop: 12/09/23 08:58 Vitamin D (Cholecalciferol 25 Mcg (1,000 Units) Tablet) 25 mcg PO DAILY YESSENIA Stop: 12/07/23 08:59 Last Admin: 12/09/22 14:11 Dose: 25 mcg Allergies lisinopril Allergy (Verified 12/06/22 18:31) Cough Results Labs 12/09/22 05:11 12/09/22 05:11 Labs: 12/09/22 05:11 BUN 73 H Creatinine 5.27 H D Radiology Impressions Impressions - last 24 hours: Any impression(s) listed above is documentation that was entered by the reading physician into a diagnostic report(s) for Cinthya Mc Steve. I have reviewed the report(s) and am incorporating any findings in the treatment plan of this patient where applicable. 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 She currently goes to [facility] with dialysis 3 times a week on MWF schedule. (2) Syncopal episodes: Assessment/Problem Details: Patient presents with a syncope. She has a history of nonsustained V. tach in the past. She was seen by the cardiology at [facility] in October 2022.Her echocardiogram in February 2022 showed EF 45%. (3) Type 2 diabetes mellitus with diabetic chronic kidney disease: Assessment/Problem Details: She has insulin-dependent type 2 diabetes mellitus. (4) Benign hypertension with end-stage renal disease: Assessment/Problem Details: Her blood pressure is controlled. She appears to be euvolemic and well compensated. She sometimes asked midodrine for intradialytic hypotension. (5) Anemia of renal disease: Assessment/Problem Details: Her hemoglobin within the goal. (6) Secondary hyperparathyroidism: Assessment/Problem Details: She has a secondary hyperparathyroidism due to the ESRD and hyperphosphatemia. Currently take calcium acetate at home. Plan * Hemodialysis today for 210 minutes, 2K bath. 2.5 L ultrafiltration as tolerated. Dry weight will be adjusted to 59 kg. Patient seems to be losing weight. * Continue Aranesp 100 mcg weekly every Friday. * Heart rate seems to be stabilized with low-dose metoprolol 12.5 mg twice a day. Metoprolol will be given after dialysis on dialysis day as it is dialyzable. Patient will have Holter monitor for 2 weeks and follow-up with cardiology as outpatient * Continue home dose of the calcium acetate and furosemide.. * Check renal function daily monitor input output Documented By: Narinder Toussaint MD 12/09/221451 Signed By: <Electronically signed by MD Narinder Toussaint> 12/09/221456 [facility] Work Phone: [phone]) 728-635510-30-2023 Discharge summary Author Teresa Pagan [facility] December 09, 2022 1:41pm Note Date/Time December 09, 2022 1 :41pm [facility] [address] [place] [address] Discharge Summary Signed Patient: Cinthya Wilson MR#: [id number] : 1945 Acct:[id number] Age/Sex: 77 / F Adm Date: 3 Loc: N Room: [address] [place] [address]: Teresa Pagan MD Copies to: MD Teresa Bourgeois II, MD~ Providers Date of Discharge: 12/09/22 Discharging Provider: Teresa Pagan Primary Care Provider: Lily Aldrich Consults: 12/07/22 01:39 Consult to Cardiology Routine Consult to Nephrology Routine Discharge Diagnosis (1) Syncope: (2) Prolonged QT interval: (3) Nonsustained ventricular tachycardia: (4) Chronic combined systolic and diastolic CHF (congestive heart failure): (5) ESRD on dialysis: (6) Leukocytosis: (7) Fall: (8) Diabetes mellitus with insulin therapy: (9) CAD (coronary artery disease): (10) COPD (chronic obstructive pulmonary disease): (11) Chronic hypoxemic respiratory failure: Final Diagnosis Final Discharge Diagnosis: as above Summary Hospital Course Hospital course: Ms. Wilson is a 77-year-old female with past medical history including but not limited to COPD, CAD, hypertension, syncopal episodes, CHF, ESRD on dialysis, and diabetes who presented to the ER with complaint of syncopal episode. Patient reports she was dizzy and then passed out at home. ECG showed sinus rhythm with first- degree block in the presence of PVCs. Throughout patient's stay in the ER, multiple nonsustained arrhythmias appeared, 1 appearing to be V.tach. Patient was experiencing some lightheadedness with rhythm changes. Chestx-ray, CT head, CT cervical spine showed no acute findings. Urinalysis was ordered, but patient was unable to make adequate urine due to renal disease. Labs showed white blood cell 13.3, hemoglobin 11, sodium 132, potassium 3.6, creatinine 2.58, glucose 288, troponin 17.6. BNP was 950. Suspected stress reaction. Patient was given 20 mEq of potassium and admitted for further work-up and cardiology evaluation. Repeat EKG roughly 3 hours later showed increasingamounts of ectopic and possible 2-3 beat runs of V. tach were captured. QTc wasprolonged at 528 ms. Cardiology consulted. Recommended to stop carvedilol due to alpha-madhu effect and switch beta-madhu to metoprolol succinate 25 mg twice daily. Continue midodrine. The following day, ventricular ectopy improved but patient was found to have episodes of sinus bradycardia in the 30s. Metoprolol dose decreased to 12.5 mg twice daily. Nephrology consulted and recommended no dialysis. Recommendations to continue outpatient dose of Aranespwith hemodialysis, home dose of Lasix, and home dose of calcium acetate. Patient was found to have a few beats of nonsustained V. tach overnight on 12/07. Morning dose of metoprolol was held due to bradycardia with heart rate in the 50s. Condition stable overnight on 12/08 with no episodes of nonsustained V. tach. Discharge home with 2-week event monitor. Follow-up withcardiology outpatient. Condition Condition at Discharge: Stable Status at Discharge Functional status at discharge: independent ambulation Overall status at discharge: patient is back to baseline Time Spent with Patient Time spent providing/coordinating discharge services (# min): 35 Diagnostic Studies Completed and Pending Studies Labs on day of discharge: 12/09/22 07:48: POC Glucose 210 12/09/22 05:11: PHA Creatinine Clear 7.96, Sodium 128 L, Potassium 4.4, [id number] L, Carbon Dioxide 26.7, Anion Gap 17.7 H, BUN 73 H, Creatinine 5.27 H D, Est GFR (CKD-EPI) 7.995, Glucose 200 H, Calcium 9.5, Magnesium 1.9 12/09/22 05:11: Corrected WBC 10.4, Uncorrected WBC Count 10.4, RBC 3.77, Hgb 10.8 L, Hct 34.5, MCV 91.3, MCH 28.6, MCHC 31.3 L, RDW 17.5 H, Plt Count 405, MPV 7.4, Neut % (Auto) 77.6, Lymph % (Auto) 13.7, Mchenry % (Auto) 6.8, Eos % (Auto) 1.4, Baso % (Auto) 0.5, Nucleat RBC Rel Count 0.0, Neut # (Auto) 8.1 H, Lymph # (Auto) 1.4, Mchenry # (Auto) 0.7, Eos # (Auto) 0.1, Baso # (Auto) 0.0 12/08/22 20:53: POC Glucose 294 12/08/22 16:36: POC Glucose 334 12/08/22 11:35: POC Glucose 236 Exam Physical Exam Vital Signs: Temp Pulse Resp BP Pulse Ox O2 Del Method O2 Flow Rate 97.9 F 65 20 154/65 H 100 Nasal Cannula 3 12/09/22 08:00 12/09/22 08:38 12/09/22 08:38 12/09/22 08:00 12/09/22 08:00 12/09/22 08:40 12/09/22 08:40 Narrative: General: Not in any acute distress Extremities: Normal to inspection. Scabbed red lesions on dorsal surface of shins bilaterally. No erythema, edema. HEENT: Head normocephalic, atraumatic, face symmetrical. Pulm: Breathing normally without excessive effort. LCTAB. Cardio: HRRR no MRG Abdomen: Abdomen slightly distended. Soft and nontender to palpation. BSx4. Normoactive. Musculoskeletal: Moves all extremities. Neuro: Patient alert, oriented x3. No focal neurologic deficits. Discharge Plan Discharge Plan Activity: Ambulate as Tolerated Diet: Diabetic and Renal Instructions: Heart Failure, Adult (DC) Prescriptions: New metoprolol succinate 25 mg Tablet Extended Release 24 Hr 12.5 mg PO BID 30 Days Qty: 30 0RF Continued multivitamin Tablet 1 tab PO DAILY dextrose [Glutose-15] 40 % Gel 0.6 g PO PRN PRN (Reason: Hypoglycemia) Qty: 112.5 0RF docusate sodium 100 mg Capsule 100 mg PO BID Qty: 60 0RF insulin aspart U-100 [Novolog FlexPen U-100 Insulin] 100 unit/mL (3 mL) Insulin Pen 1 sliding scale dose subcut TID.WM.HS Qty: 15 0RF (DME) pen needle, diabetic [BD Ultra-Fine Lexis Pen Needle] 32 gauge x 5/32 needle Qty: 100 0RF Rx Instructions: As Directed - FSBS AC/HS calcium acetate(phosphat bind) 667 mg Capsule 667 mg PO TID.WITH.MEALS 60 Days Qty: 240 0RF sennosides [senna] 8.6 mg tablet 8.6 mg PO BID Patient Comments: TAKE 1 TABLET BY MOUTH TWICE DAILY HOLD FOR LOOSE STOOLS pantoprazole 40 mg tablet,delayed release (DR/EC) 40 mg PO DAILY Patient Comments: TAKE 1 TABLET BY MOUTH EVERY DAY diclofenac sodium [Voltaren Arthritis Pain] 1 % Gel 4 g topical QID Qty: 0 0RF furosemide 20 mg tablet 60 mg PO BID 30 Days Qty: 180 0RF Rx Instructions: Take twice a day with meals, at least 6 hours apart. Further refills or adjustments per Nephrology. atorvastatin 40 mg tablet 40 mg PO QPM Patient Comments: Rx Instructions: 1 tablet PO daily citalopram 40 mg tablet 40 mg PO DAILY aspirin 81 mg Tablet,Delayed Release (Dr/Ec) 81 mg PO DAILY Hold Instructions: resume in 2 days if no further bleeding noted. cholecalciferol (vitamin D3) [Vitamin D3] 25 mcg (1,000 unit) Tablet 25 mcg PO DAILY albuterol sulfate 0.63 mg/3 mL Solution For Nebulization 0.63 mg inhalation QID PRN (Reason: SOB) pramipexole 0.5 mg tablet 0.5 mg PO HS oxycodone-acetaminophen 5-325 mg tablet 1 tab PO Q4-6H PRN (Reason: Pain) Patient Comments: TAKE 1 TABLET BY MOUTH EVERY 6 HOURS NEEDED FOR SEVERE PAIN Trelegy Ellipta 100-62.5-25 mcg blister with device 1 ea INHALATION DAILY Patient Comments: INHALE 1 PUFF BY MOUTH EVERY DAY prednisone 10 mg tablet 10 mg PO DAILY Patient Comments: per pt to start 10 mg today / 3 days Rx Instructions: 10 mg x3 days midodrine 5 mg tablet 5 mg PO TID PRN (Reason: Hypotension) Patient Comments: TAKE 1 TABLET BY MOUTH THREE TIMES DAILY NEEDED FOR HYPOTENSION Discontinued carvedilol 3.125 mg Tablet 3.125 mg PO BID.WITH.MEALS 30 Days Qty: 60 0RF Other Ambulatory Orders: CA cardiac event monitor (Routine) Timeframe: 20221209 Facility: [facility] - Location: [address] [place] [address] - O/P Ordered By: Edie Michel Follow Up: Edie Michel MD [Active Staff] - Documented By: Teresa Pagan MD 12/09/22 0936 Signed By: <Electronically signed by Teresa Pagan MD> 12/09/22 1341 [facility] Work Phone: [phone]) 662-961410-29-2023 Progress note Author Edie Michel [facility] December 08, 2022 6:26pm Note Date/Time December 08, 2022 6 :26pm [facility] [address] [place] [address] Cardiology Progress Note Signed Patient: Cinthya Wilson MR#: [id number] : 1945 Acct:[id number] Age/Sex: 77 / F Adm Date: 3 Loc: N Room: [address] [place] [address] Type: ADM INOo Attending Dr: Teresa Pagan MD Copies to: ~ Date of Service: 12/08/2022 Subjective Interval history: Ms. Wilson is a 77 year old female with PMH significant for CAD status post PCI x1 about 10 years ago in [place], ESRD on HD, hypertension, hyperlipidemia, CHF, COPD on 3 L nasal cannula who presented to the ED after she had a syncopal episode and fell hitting the back of her head. She had been to dialysis earlier in the day and blood pressure was stable following the dialysis session without any dizziness or lightheadedness. She was at home for several hours and felt fine however when she was clearing the table after dinner she felt sudden onset dizziness and passed out. She denied palpitations, chest pain, shortness of breath prior to this. On arrival she had CT head and cervical spine that were unremarkable. She was noted to have multiple runs of nonsustained VT in the ED. Her initial EKG showed normal sinus rhythm with first-degree AV block and multiple PVCs. Second EKG showed triplets and couplets. Since arrival to the floor she has not had much ventricular ectopy. She is in sinus rhythm in the 50s and 60s. No runs of VT. Potassium 3.9, magnesium 2.0. She is currently oncarvedilol 3.125 mg twice daily and midodrine 5 mg 3 times daily as needed. Shestates she did not take midodrine after dialysis session yesterday. Patient was recently admitted for mechanical fall and was noted to have episodesof nonsustained VT. She was started on amiodarone briefly but now stopped due to bradycardia. Carvedilol dose had been decreased and she had been started on midodrine Interval history 12/08/2022: Patient noted to be bradycardic overnight on telemetry. Heart rate as low as 37. Patient was asymptomatic. Exam Physical Exam Vital Signs: Temp Pulse Resp BP Pulse Ox O2 Del Method O2 Flow Rate 98.2 F 63 18 132/56 L 99 Nasal Cannula 3 12/08/22 16:30 12/08/22 16:30 12/08/22 16:30 12/08/22 16:30 12/08/22 16:30 12/08/22 16:30 12/08/22 16:00 Narrative: GEN: AAOx3. No acute distress. Lying comfortably flat in bed Neck: No JVD. Lungs: Clear to auscultation bilaterally Heart: Regular rate and rhythm. Normal S1 and S2. No murmurs or rubs appreciated. Abdomen: Soft, nontender, nondistended, bowel sounds present. Extremities: No BLE edema. Neuro: AAOx3. No focal deficits. Objective Labs 12/08/22 04:43 12/08/22 04:43 Labs: Laboratory Results - last 24 hr 12/07/22 12/08/22 12/08/22 21:18 04:43 04:43 Corrected WBC 9.8 Uncorrected WBC Count 9.8 RBC 3.64 Hgb 10.7 L Hct 33.4 L MCV 91.9 MCH 29.4 MCHC 32.0 RDW 17.1 H Plt Count 377 MPV 7.4 Neut % (Auto) 73.1 Lymph % (Auto) 16.3 Mchenry % (Auto) 9.7 Eos % (Auto) 0.7 Baso % (Auto) 0.2 Nucleat RBC Rel Count 0.0 Neut # (Auto) 7.2 Lymph # (Auto) 1.6 Mchenry # (Auto) 1.0 H Eos # (Auto) 0.1 Baso # (Auto) 0.0 PHA Creatinine Clear 9.67 Sodium 131 L Potassium 4.2 Chloride 92 L Carbon Dioxide 25.3 Anion Gap 17.9 H BUN 59 H Creatinine 4.34 H D Est GFR (CKD-EPI) 10.093 Glucose 179 H POC Glucose 250 Calcium 9.4 Magnesium 2.0 Troponin I High Sens 12/08/22 12/08/22 12/08/22 04:43 08:06 11:35 Corrected WBC Uncorrected WBC Count RBC Hgb Hct MCV MCH MCHC RDW Plt Count MPV Neut % (Auto) Lymph % (Auto) Mchenry % (Auto) Eos % (Auto) Baso % (Auto) Nucleat RBC Rel Count Neut # (Auto) Lymph # (Auto) Mchenry # (Auto) Eos # (Auto) Baso # (Auto) PHA Creatinine Clear Sodium Potassium Chloride Carbon Dioxide Anion Gap BUN Creatinine Est GFR (CKD-EPI) Glucose POC Glucose 179 236 Calcium Magnesium Troponin I High Sens 23.4 H 12/08/22 16:36 Corrected WBC Uncorrected WBC Count RBC Hgb Hct MCV MCH MCHC RDW Plt Count MPV Neut % (Auto) Lymph % (Auto) Mchenry % (Auto) Eos % (Auto) Baso % (Auto) Nucleat RBC Rel Count Neut # (Auto) Lymph # (Auto) Mchenry # (Auto) Eos # (Auto) Baso # (Auto) PHA Creatinine Clear Sodium Potassium Chloride Carbon Dioxide Anion Gap BUN Creatinine Est GFR (CKD-EPI) Glucose POC Glucose 334 Calcium Magnesium Troponin I High Sens A&P - Cardiology (1) Diabetes: Code(s): E11.9 - Type 2 diabetes mellitus without complications Status: Acute (2) HTN (hypertension): Code(s): I10 - Essential (primary) hypertension Status: Acute (3) CAD (coronary artery disease): Code(s): I25.10 - Atherosclerotic heart disease of [place] coronary artery without angina pectoris Status: Acute (4) Acute electrocardiogram changes: Code(s): R94.31 - Abnormal electrocardiogram [ECG] [EKG] Status: Acute (5) ESRD (end stage renal disease): Code(s): N18.6 - End stage renal disease Status: Acute (6) Syncope: Code(s): R55 - Syncope and collapse Status: Acute Plan Ms. Wilson is a 77 year old female with PMH significant for CAD status post PCI x1 about 10 years ago in [place], ESRD on HD, hypertension, hyperlipidemia, CHF, COPD on 3 L nasal cannula who presented to the ED after she had a syncopal episode and fell hitting the back of her head and was found to have nonsustained VT. Her initial EKG showed normal sinus rhythm with first-degree AV block and multiple PVCs. Second EKG showed triplets and couplets. Since arrival to the floor she has not had much ventricular ectopy. She is in sinus rhythm in the 50s and 60s. No runs of VT. Potassium 3.9, magnesium 2.0. She is currently on carvedilol 3.125 mg twice daily and midodrine 5 mg 3 times daily as needed. She states she did not take midodrine after dialysis session yesterday. Assessment: Syncope-concern for arrhythmia versus vasovagal episode l in the setting of hypotension following dialysis Nonsustained VT ESRD on HD PAD status post PCI Hypertension Hyperlipidemia Recommendations: -Ventricular ectopy improved on metoprolol however she had episodes of sinus bradycardia to the 30s. Decrease dose to 12.5 mg twice daily and continue monitoring on telemetry. -Continue midodrine 5 mg 3 times daily as needed -We will plan to discharge home with 2-week event monitor. -Will follow Documented By: Edie Michel MD 12/08/22 1323 Signed By: <Electronically signed by Edie Michel MD> 12/08/22 1820 [facility] Work Phone: [phone]) 850-883610-29-2023 Progress note Author Teresa Pagan [facility] December 08, 2022 2:00pm Note Date/Time December 08, 2022 1 :49pm [facility] [address] [place] [address] Hospitalist Progress Note Signed Patient: Cinthya Wilson MR#: [id number] : 1945 Acct:[id number] Age/Sex: 77 / F Adm Date: 3 Loc: Room: [address] [place] [address] Type: ADM INOo Attending Dr: Teresa Pagan MD Copies to: ~ Date of Service: 12/08/2022 Subjective Subjective Narrative: Patient examined at bedside and noted to have few beats of nonsustained V. tach last night. Morning dose of metoprolol was held due to bradycardia with heart rate in 50s. She was seen by cardiology yesterday switched to metoprolol succinate from carvedilol and plan for event monitor on discharge. Assessment and plan: 1. Syncopal episode 2. Prolonged QTc 3. Nonsustained ventricular tachycardia 4. Chronic systolic and diastolic congestive heart failure 5. End-stage renal disease on hemodialysis 6. Leukocytosis 7. Traumatic fall 8. Insulin-dependent diabetes mellitus 9. Coronary artery disease 10. COPD 11. Chronic hypoxic respiratory failure Patient is 77-year-old female with history of coronary artery disease, incisional disease on hemodialysis as well as history of ventricular tachycardiawho again presented to the emergency room for syncopal episode. Patient has history of recurrent syncope noted to have runs of ventricular tachycardia. Seen by cardiology and transition to metoprolol and does need to be adjusted dueto bradycardia. Given her recurrent episodes of ventricular tachycardia with recurrent syncope patient requires telemetry monitoring at rest and ambulation as well as titration of beta-madhu for adequate control and monitor for any significant bradycardia. Currently no signs of COPD exacerbation and patient ischronically on 3 L oxygen for chronic expiratory failure. Continue aspirin, statin, bronchodilators and other home medications. Add subcutaneous heparin for DVT prophylaxis. Disposition: Patient is admitted for recurrent cardiac arrhythmias and complete syncopal event with loss of consciousness. She has further prolongation of her QTc and will require inpatient monitoring on telemetry as well as consultation with cardiology and nephrology for ongoing medical management. She is thus admitted as an inpatient for a stay that will surpass greater than 2 midnights. Exam Physical Exam Vital Signs: Temp Pulse Resp BP Pulse Ox O2 Del Method O2 Flow Rate 97.9 F 64 18 110/64 98 Nasal Cannula 3 12/08/22 12:50 12/08/22 12:50 12/08/22 12:50 12/08/22 12:50 12/08/22 12:50 12/08/22 12:50 12/08/22 12:50 Const Orientation: alert, awake and oriented x3 Resp Effort & Inspection: normal respiratory effort and able to speak in complete sentences Auscultation: no rales, no rhonchi and no wheezes Cardio Rate: regular rate Rhythm: regular rhythm Heart Sounds: S1 normal and S2 normal Neuro General: patient alert, patient awake, patient oriented x3, moves all extremities, no focal motor deficits and CN's II-XI intact bilaterally Objective Lab Results 12/08/22 04:43 12/08/22 04:43 Meds Allergies and Active Meds Allergies lisinopril Allergy (Verified 12/06/22 18:31) Cough Active Meds: Active Medications Generic Name Dose Route Start Last Admin Trade Name Freq PRN Reason Stop Dose Admin Albuterol 0.63 mg 12/07/22 05:34 Albuterol Neb 2.5 Mg/3 Ml Vial.Neb INHALATION 12/07/23 05:33 QID PRN Shortness Of Breath Aspirin 81 mg 12/07/22 09:00 12/08/22 08:01 Aspirin 81 Mg Tablet.Dr PO 12/07/23 08:59 81 mg DAILY YESSENIA Administration Atorvastatin Calcium 40 mg 12/07/22 21:00 12/07/22 20:24 Atorvastatin 40 Mg Tablet PO 12/07/23 20:59 40 mg QPM YESSENIA Administration Budesonide/Formoterol Fumarate 2 puff 12/07/22 09:00 12/08/22 09:10 Budesonide/Formoterol 80-4.5 Mcg 60 Puff/6.9 Gm Hfa.Aer.Ad INHALATION 12/07/23 08:59 2 puff BID YESSENIA Administration Calcium Acetate 667 mg 12/07/22 08:00 12/08/22 13:18 Calcium Acetate 667 Mg Capsule PO 12/07/23 07:59 667 mg TID.WITH.MEALS YESSENIA Administration Diclofenac Sodium 4 gm 12/07/22 09:00 12/08/22 13:20 Diclofenac Sodium 1% Gel 50 Gm Tube TOPICAL 12/07/23 08:59 4 gm QID YESSENIA Administration Docusate Sodium 100 mg 12/07/22 09:00 12/08/22 08:01 Docusate 100 Mg Capsule PO 12/07/23 08:59 100 mg BID YESSENIA Administration Glucose 0.6 gm 12/07/22 05:10 Dextrose 40% Gel 15 Gm Tube PO 12/07/23 05:09 PRN PRN Hypoglycemia Insulin Aspart 0 units 12/07/22 08:00 12/08/22 13:17 Insulin Aspart 300 Units/3 Ml Insuln.Pen SUBCUT 12/07/23 07:59 2 units TID.WM.HS YESSENIA Administration Protocol Ipratropium Ch[place]ar 0.5 mg 12/07/22 09:00 12/08/22 12:33 Ipratropium [place] 0.5 Mg/2.5 Ml Vial.Neb INHALATION 12/07/23 08:59 0.5 mg QID YESSENIA Administration Metoprolol Succinate 12.5 mg 12/08/22 13:00 12/08/22 13:19 Metoprolol Succinate 25 Mg Tab.Er.24h PO 12/08/23 12:59 12.5 mg BID YESSENIA Administration Midodrine 5 mg 12/07/22 09:00 Midodrine 5 Mg Tablet PO 12/07/23 08:59 TID PRN Hypotension Multivitamins 1 tab 12/07/22 09:00 12/08/22 08:01 Multivitamin 1 Tab Tablet PO 12/07/23 08:59 1 tab DAILY YESSENIA Administration Oxycodone/Acetaminophen 1 tab 12/07/22 05:10 12/08/22 13:18 Oxycodone/Acetaminophen 5-325 Mg Tablet PO 1 tab Q6H PRN Administration Pain Pantoprazole Sodium 40 mg 12/07/22 09:00 12/08/22 09:12 Pantoprazole 40 Mg Tablet.Dr PO 12/07/23 08:59 40 mg DAILY YESSENIA Administration Pramipexole Dihydrochloride 0.5 mg 12/07/22 22:00 12/07/22 22:57 Pramipexole 0.5 Mg Tablet PO 12/07/23 21:59 0.5 mg HS YESSENIA Administration Prednisone 10 mg 12/07/22 09:00 12/08/22 08:01 Prednisone 10 Mg Tablet PO 12/10/22 08:59 10 mg DAILY YESSENIA Administration Sennosides 1 tab 12/07/22 09:00 12/08/22 08:01 Sennosides 8.6 Mg Tablet PO 12/07/23 08:59 1 tab BID YESSENIA Administration Sodium Chloride 0 ml 12/06/22 18:31 Sodium Chloride 0.9 % 10 Ml Syringe IV-PUSH 12/06/23 18:30 PRN PRN Flush Vitamin D 25 mcg 12/07/22 09:00 12/08/22 08:01 Cholecalciferol 25 Mcg (1,000 Units) Tablet PO 12/07/23 08:59 25 mcg DAILY YESSENIA Administration Documented By: Teresa Pagan MD 12/08/22 1346 Signed By: <Electronically signed by Teresa Pagan MD> 12/08/22 1400 [facility] Work Phone: [phone] 115-253910-29-2023 Progress note Author Wood Zavala [facility] December 08, 2022 10:36am Note Date/Time December 08, 2022 1 0:36am [facility] [address] [place] [address] Nephrology Progress Note Signed Patient: Cinthya Wilson MR#: [id number] : 1945 Acct:[id number] Age/Sex: 77 / F Adm Date: 3 Loc: 4N Room: 0D5261-3 Type: ADM INOo Attending Dr: Teresa Pagan MD Copies to: ~ Date of Service: 12/08/2022 Subjective Subjective Narrative: This is a 77-year female with a medical history of CAD, ESRD, HTN, CHF, COPD, DM, dyslipidemia, anemia of renal disease and secondary hyperparathyroidism was admitted after syncopal episode. On evaluation in emergency room patient had a CT brain and cervical spine which showed no acute finding. EKG shows prolonged QT interval. She was found to have multiple episodes of nonsustained V. tach ontelemetry. Patient was admitted at [facility] in October 2022 for fall and was also found to have a nonsustained V. tach. She was seen by the cardiology at the time. 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 She currently goes to the [facility] dialysis unit 3 times a week on MWF schedule. She is currently has AV fistula as a dialysis access. Patientreported she had at home routine hemodialysis yesterday and has no incident during or after dialysis. Nephrology is consulted for ESRD management during the hospital stay. Interval history Patient was seen and examined at bedside. She is feeling better today denies any chest pain palpitation cough nausea vomiting, shortness of breath. Patient was seen by the cardiology for nonsustained V. tach and syncope. Her carvedilol was discontinued and she was started on metoprolol. Cardiology also recommended outpatient Holter monitor for 2 weeks. Exam Physical Exam Vital Signs: Temp Pulse Resp BP Pulse Ox O2 Del Method O2 Flow Rate 97.9 F 59 L 18 148/78 H 100 Nasal Cannula 3 12/08/22 07:57 12/08/22 09:26 12/08/22 09:26 12/08/22 07:57 12/08/22 07:57 12/08/22 08:00 12/08/22 08:00 Narrative: General: Appears comfortable and not in distress Heart: S1-S2, no rub Lung: Bilateral air entry, no wheezing or crackles Abdomen: Soft, positive bowel sounds Extremities: No edema, no cyanosis Head: Atraumatic, normocephalic Ear: No gross hearing Deficit or external ear redness Eyes: No pallor or redness Neck: No JVD or visible mass Skin: No rashes , warm to touch IS TECHNICIAN: Awake,Alert, following simple command Musculoskeletal: No joint swelling or limitation of movement Psychiatric: Cooperative, normal mood and affect Objective Intake and Output I&O: Intake & Output 12/05/22 12/06/22 12/07/22 12/08/22 23:59 23:59 23:59 23:59 Intake Total 960 / 960 100 / 100 Output Total 0 / 0 Balance 960 / 960 100 / 100 Weight 59.3 kg 59.3 kg 60.5 kg Meds and Allergies Meds: Active Medications Albuterol (Albuterol Neb 2.5 Mg/3 Ml Vial.Neb) 0.63 mg INHALATION QID PRN PRN Reason: Shortness Of Breath Stop: 12/07/23 05:33 Aspirin (Aspirin 81 Mg Tablet.Dr) 81 mg PO DAILY [facility] Stop: 12/07/23 08:59 Last Admin: 12/08/22 08:01 Dose: 81 mg Atorvastatin Calcium (Atorvastatin 40 Mg Tablet) 40 mg PO QPM [facility] Stop: 12/07/23 20:59 Last Admin: 12/07/22 20:24 Dose: 40 mg Budesonide/Formoterol Fumarate (Budesonide/Formoterol 80-4.5 Mcg 60 Puff/6.9 Gm Hfa.Aer.Ad) 2 puff INHALATION BID [facility] Stop: 12/07/23 08:59 Last Admin: 12/08/22 09:10 Dose: 2 puff Calcium Acetate (Calcium Acetate 667 Mg Capsule) 667 mg PO TID.WITH.MEALS [facility] Stop: 12/07/23 07:59 Last Admin: 12/08/22 08:01 Dose: 667 mg Diclofenac Sodium (Diclofenac Sodium 1% Gel 50 Gm Tube) 4 gm TOPICAL QID [facility] Stop: 12/07/23 08:59 Last Admin: 12/08/22 08:03 Dose: 4 gm Docusate Sodium (Docusate 100 Mg Capsule) 100 mg PO BID [facility] Stop: 12/07/23 08:59 Last Admin: 12/08/22 08:01 Dose: 100 mg Glucose (Dextrose 40% Gel 15 Gm Tube) 0.6 gm PO PRN PRN PRN Reason: Hypoglycemia Stop: 12/07/23 05:09 Insulin Aspart (Insulin Aspart 300 Units/3 Ml Insuln.Pen) 0 units SUBCUT TID.WM.[facility]; Protocol Stop: 12/07/23 07:59 Last Admin: 12/08/22 08:07 Dose: 1 units Ipratropium Chualar (Ipratropium Chualar 0.5 Mg/2.5 Ml Vial.Neb) 0.5 mg INHALATION QID [facility] Stop: 12/07/23 08:59 Last Admin: 12/08/22 09:10 Dose: 0.5 mg Metoprolol Succinate (Metoprolol Succinate 25 Mg Tab.Er.24h) 25 mg PO BID [facility] Stop: 12/07/23 20:59 Last Admin: 12/08/22 08:03 Dose: Not Given Midodrine (Midodrine 5 Mg Tablet) 5 mg PO TID PRN PRN Reason: Hypotension Stop: 12/07/23 08:59 Multivitamins (Multivitamin 1 Tab Tablet) 1 tab PO DAILY YESSENIA Stop: 12/07/23 08:59 Last Admin: 12/08/22 08:01 Dose: 1 tab Oxycodone/Acetaminophen (Oxycodone/Acetaminophen 5-325 Mg Tablet) 1 tab PO Q6H PRN PRN Reason: Pain Last Admin: 12/08/22 07:25 Dose: 1 tab Pantoprazole Sodium (Pantoprazole 40 Mg Tablet.Dr) 40 mg PO DAILY YESSENIA Stop: 12/07/23 08:59 Last Admin: 12/08/22 09:12 Dose: 40 mg Pramipexole Dihydrochloride (Pramipexole 0.5 Mg Tablet) 0.5 mg PO HS YESSENIA Stop: 12/07/23 21:59 Last Admin: 12/07/22 22:57 Dose: 0.5 mg Prednisone (Prednisone 10 Mg Tablet) 10 mg PO DAILY YESSENIA Stop: 12/10/22 08:59 Last Admin: 12/08/22 08:01 Dose: 10 mg Sennosides (Sennosides 8.6 Mg Tablet) 1 tab PO BID YESSENIA Stop: 12/07/23 08:59 Last Admin: 12/08/22 08:01 Dose: 1 tab Sodium Chloride (Sodium Chloride 0.9 % 10 Ml Syringe) 0 ml IV-PUSH PRN PRN PRN Reason: Flush Stop: 12/06/23 18:30 Vitamin D (Cholecalciferol 25 Mcg (1,000 Units) Tablet) 25 mcg PO DAILY YESSENIA Stop: 12/07/23 08:59 Last Admin: 12/08/22 08:01 Dose: 25 mcg Allergies lisinopril Allergy (Verified 12/06/22 18:31) Cough Results Labs 12/08/22 04:43 12/08/22 04:43 Labs: 12/08/22 04:43 BUN 59 H Creatinine 4.34 H D Radiology Impressions Impressions - last 24 hours: Any impression(s) listed above is documentation that was entered by the reading physician into a diagnostic report(s) for Cinthya Wilson. I have reviewed the report(s) and am incorporating any findings in the treatment plan of this patient where applicable. A&P - Nephrology Assessment/Plan (1) Syncopal episodes: Assessment/Problem Details: Patient presents with a syncope. She has a history of nonsustained V. tach in the past. She was seen by the cardiology at [facility] in October 2022.Her echocardiogram in February 2022 showed EF 45%. (2) ESRD on dialysis: Assessment/Problem Details: She has a ESRD due to the renovascular atherosclerotic disease and diabetes mellitus. She currently goes to [facility] dialysis 3 times a week on MWF schedule. (3) Type 2 diabetes mellitus with diabetic chronic kidney disease: Assessment/Problem Details: She has insulin-dependent type 2 diabetes mellitus. (4) Benign hypertension with end-stage renal disease: Assessment/Problem Details: Her blood pressure is controlled. She appears to be euvolemic and well compensated. She sometimes asked midodrine for intradialytic hypotension. (5) Anemia of renal disease: Assessment/Problem Details: Her hemoglobin within the goal. (6) Secondary hyperparathyroidism: Assessment/Problem Details: She has a secondary hyperparathyroidism due to the ESRD and hyperphosphatemia. Currently take calcium acetate at home. Plan * No need for dialysis today. Next dialysis will be on tomorrow if patient stays in-house. * Continue home dose of the calcium acetate. * Will continue outpatient dose of the Aranesp with hemodialysis. * Continue home dose of the Lasix. * Continue DM management as per the primary hospitalist team. The goal of blood sugar is between 100 to 150 mg/dL. * Check renal function daily monitor input output * Documented By: Wood Zavala MD 12/08/22 1034 Signed By: <Electronically signed by Wood Zavala MD> 12/08/22 1036 [facility] Work Phone: [phone] 486-493110-28-2023 Consult note Author Edie Michel [facility] December 07, 2022 8:59pm Note Date/Time December 07, 2022 8 :43pm [facility] [address] [place] [address] Cardiology Consult Note Signed Patient: Cinthya Wilson MR#: [id number] : 1945 Acct:[id number] Age/Sex: 77 / F Adm Date: 3 Loc: 4 Room: [address] [place] [address] Type: ADM INOo Attending Dr: Teresa Pagan MD Copies to: MD Edie Bourgeois II, MD Mazhar Rahman, MD~ Cardiology HPI History of Present Illness Consult Date: 12/07/22 Reason for Consult: Syncope HPI: Ms. Wilson is a 77 year old female with PMH significant for CAD status post PCI x1 about 10 years ago in [place], ESRD on HD, hypertension, hyperlipidemia, CHF, COPD on 3 L nasal cannula who presented to the ED after she had a syncopal episode and fell hitting the back of her head. She had been to dialysis earlier in the day and blood pressure was stable following the dialysis session without any dizziness or lightheadedness. She was at home for several hours and felt fine however when she was clearing the table after dinner she felt sudden onset dizziness and passed out. She denied palpitations, chest pain, shortness of breath prior to this. On arrival she had CT head and cervical spine that were unremarkable. She was noted to have multiple runs of nonsustained VT in the ED. Her initial EKG showed normal sinus rhythm with first-degree AV block and multiple PVCs. Second EKG showed triplets and couplets. Since arrival to the floor she has not had much ventricular ectopy. She is in sinus rhythm in the 50s and 60s. No runs of VT. Potassium 3.9, magnesium 2.0. She is currently oncarvedilol 3.125 mg twice daily and midodrine 5 mg 3 times daily as needed. Shestates she did not take midodrine after dialysis session yesterday. Patient was recently admitted for mechanical fall and was noted to have episodesof nonsustained VT. She was started on amiodarone briefly but now stopped due to bradycardia. Carvedilol dose had been decreased and she had been started on midodrine Review of Systems Review of Systems All other systems reviewed & are negative unless noted below or in HPI [facility] Medical History (Updated 12/07/22 @ 20:58 by Edie Michel MD) Anemia Anxiety Anxiety and depression Arthritis AV fistula left CAD (coronary artery disease) Cataract had bilateral PHACO Cervical spinal stenosis CHF (congestive heart failure) Chronic back pain Chronic kidney disease COPD (chronic obstructive pulmonary disease) Diabetes GERD (gastroesophageal reflux disease) HTN (hypertension) Hyperlipidemia Insomnia Irregular heart rhythm prior to stent placement per pt report Lumbosacral spondylolysis LVH (left ventricular hypertrophy) Neck pain with history of cervical spinal surgery Neuropathy right thigh and feet Pneumonia Polymyalgia Skin cancer mohs procedure for removal Sleep apnea Surgical History H/O heart artery stent History of appendectomy History of back surgery lumbar History of x2 History of carpal tunnel release bilateral History of coronary angioplasty with insertion of stent History of D&C History of shoulder surgery rt shoulder History of tonsillectomy History of total abdominal hysterectomy and bilateral salpingo-oophorectomy Family History Father Heart disease Cancer Mother Cancer Diabetes Social History Smoking Status: Never smoker Substance Use Type: None Social History Comments: adult son Meds Medications and Allergies Allergies lisinopril Allergy (Verified 12/06/22 18:31) Cough Home Medications atorvastatin 40 mg tablet 40 mg PO QPM 11/19/16 [History Confirmed 12/06/22] multivitamin 1 tab PO DAILY 09/07/19 [History Confirmed 12/06/22] aspirin 81 mg tablet,delayed release 81 mg PO DAILY 11/25/19 [History Confirmed 12/06/22] cholecalciferol (vitamin D3) 25 mcg (1,000 unit) tablet (Vitamin D3) 25 mcg PO DAILY 11/25/19 [History Confirmed 12/06/22] citalopram 40 mg tablet 40 mg PO DAILY 11/25/19 [History Confirmed 12/06/22] albuterol sulfate 0.63 mg/3 mL solution for nebulization 0.63 mg inhalation QID PRN SOB 06/26/21 [History Confirmed 12/06/22] dextrose 40 % oral gel (Glutose-15) 0.6 g PO PRN PRN Hypoglycemia #112.5 grams 11/20/21 [Rx Confirmed 12/06/22] docusate sodium 100 mg capsule 100 mg PO BID #60 caps 11/20/21 [Rx Confirmed 12/06/22] insulin aspart U-100 100 unit/mL (3 mL) subcutaneous pen (Novolog FlexPen U-100 Insulin aspart) 1 sliding scale dose subcut TID.WM.HS #15 mL 11/20/21 [Rx Confirmed 12/06/22] pen needle, diabetic 32 gauge x 5/32 (BD Ultra-Fine Lexis Pen Needle) #100 ea 11/20/21 [Rx Confirmed 12/06/22] calcium acetate(phosphat bind) 667 mg capsule 667 mg PO TID.WITH.MEALS 60 days #240 caps 02/26/22 [Rx Confirmed 12/06/22] pantoprazole 40 mg tablet,delayed release 40 mg PO DAILY 05/17/22 [History Confirmed 12/06/22] sennosides 8.6 mg tablet (senna) 8.6 mg PO BID 05/17/22 [History Confirmed 12/06/22] carvedilol 3.125 mg tablet 3.125 mg PO BID.WITH.MEALS 30 days #60 tabs 10/31/22 [Rx Confirmed 12/06/22] diclofenac sodium 1 % topical gel (Voltaren Arthritis Pain) 4 g topical QID #0 grams 10/31/22 [Rx Confirmed 12/06/22] furosemide 20 mg tablet 60 mg PO BID 30 days #180 tabs 10/31/22 [Rx Confirmed 12/06/22] fluticasone fur. 100 mcg-umeclid 62.5 mcg-vilant 25 mcg inhalat.powder (Trelegy Ellipta) 1 ea inhalation DAILY 12/06/22 [History Confirmed 12/06/22] oxycodone-acetaminophen 5 mg-325 mg tablet 1 tab PO Q4-6H PRN Pain 12/06/22 [History Confirmed 12/06/22] pramipexole 0.5 mg tablet 0.5 mg PO HS 12/06/22 [History Confirmed 12/06/22] prednisone 10 mg tablet 10 mg PO DAILY 12/06/22 [History Confirmed 12/07/22] midodrine 5 mg tablet 5 mg PO TID PRN Hypotension 12/07/22 [History Confirmed 12/07/22] Exam Physical Exam Vital Signs: Temp Pulse Resp BP Pulse Ox O2 Del Method O2 Flow Rate 98.6 F 63 20 123/52 L 99 Nasal Cannula 3 12/07/22 20:25 12/07/22 20:25 12/07/22 20:25 12/07/22 20:25 12/07/22 20:25 12/07/22 20:25 12/07/22 20:25 Narrative: GEN: AAOx3. No acute distress. Lying comfortably flat in bed Neck: No JVD. Lungs: Clear to auscultation bilaterally Heart: Regular rate and rhythm. Normal S1 and S2. No murmurs or rubs appreciated. Abdomen: Soft, nontender, nondistended, bowel sounds present. Extremities: No BLE edema. Neuro: AAOx3. No focal deficits. Results Labs 12/07/22 05:00 12/07/22 05:00 Lab results: CBC 12/07/22 Range/Units 05:00 RBC 3.86 (3.60-5.00) X10E6/uL Hgb 11.2 L (11.8-15.4) g/dL Hct 35.5 (34.0-46.4) % Plt Count 387 (150-450) x10E3/uL Neut # (Auto) 7.8 H (1.8-7.7) x10E3/uL Lymph # (Auto) 0.9 L (1.00-4.8) x10E3/uL Mchenry # (Auto) 0.8 (0.0-0.8) x10E3/uL Eos # (Auto) 0.0 (0.0-0.45) x10E3/uL Baso # (Auto) 0.0 (0.0-0.2) x10E3/uL Comprehensive Metabolic Panel 12/07/22 Range/Units 05:00 Sodium 133 L (136-145) mmol/L Potassium 3.9 (3.5-5.1) mmol/L Chloride 92 L (98-107) mmol/L Carbon Dioxide 28.9 (21.0-31.0) mmol/L BUN 35 H (7-25) mg/dL Creatinine 3.15 H D (0.60-1.20) mg/dL Glucose 240 H (70-100) mg/dL Calcium 9.5 (8.6-10.3) mg/dL Intake and Output 12/07/22 12/07/22 12/07/22 07:59 15:59 23:59 Intake Total 0 / 480 480 / 480 Output Total 0 / 0 Balance 0 / 480 480 / 480 Intake: Oral 0 / 480 480 / 480 Output: Urine 0 / 0 Other: # Bowel Movements 0 Weight 59.3 kg Date of Last Bowel Movement 12/06/22 12/06/22 Patient Weight 12/07/22 23:59 Weight 59.3 kg Lab 12/06/22 18:48 PT 12.4 INR 1.0 APTT 29.3 A&P - Cardiology (1) Diabetes: Code(s): E11.9 - Type 2 diabetes mellitus without complications (2) HTN (hypertension): Code(s): I10 - Essential (primary) hypertension (3) CAD (coronary artery disease): Code(s): I25.10 - Atherosclerotic heart disease of [place] coronary artery without angina pectoris (4) Acute electrocardiogram changes: Code(s): R94.31 - Abnormal electrocardiogram [ECG] [EKG] (5) ESRD (end stage renal disease): Code(s): N18.6 - End stage renal disease (6) Syncope: Code(s): R55 - Syncope and collapse Plan Ms. Wilson is a 77 year old female with PMH significant for CAD status post PCI x1 about 10 years ago in [place], ESRD on HD, hypertension, hyperlipidemia, CHF, COPD on 3 L nasal cannula who presented to the ED after she had a syncopal episode and fell hitting the back of her head and was found to have nonsustained VT. Her initial EKG showed normal sinus rhythm with first-degree AV block and multiple PVCs. Second EKG showed triplets and couplets. Since arrival to the floor she has not had much ventricular ectopy. She is in sinus rhythm in the 50s and 60s. No runs of VT. Potassium 3.9, magnesium 2.0. She is currently on carvedilol 3.125 mg twice daily and midodrine 5 mg 3 times daily as needed. She states she did not take midodrine after dialysis session yesterday. Assessment: Syncope-concern for arrhythmia versus vasovaga episode l in the setting of hypotension following dialysis Nonsustained VT ESRD on HD PAD status post PCI Hypertension Hyperlipidemia Recommendations: -Will switch beta-madhu to metoprolol succinate 25 mg twice daily which has better antiarrhythmic properties and will stop carvedilol due to alpha-madhu effect -Continue midodrine 5 mg 3 times daily as needed -Monitor overnight on telemetry. We will plan to discharge home with 2-week event monitor. - Will follow Documented By: Edie Michel MD 12/07/22 1340 Signed By: <Electronically signed by Edie Michel MD> 12/07/222058 [facility] Work Phone: [phone] 810-174710-28-2023 Consult note Author Wood Zavala [facility] December 07, 2022 11:43am Note Date/Time December 07, 2022 1 1:24am [facility] [address] [place] [address] Nephrology Consult Note Signed Patient: Cinthya Wilson MR#: [id number] : 1945 Acct:[id number] Age/Sex: 77 / F Adm Date: 3 Loc: Room: [address] [place] [address] Type: ADM INOo Attending Dr: Teresa Pagan MD Copies to: MD Lily Gaines II, MD Mazhar Rahman, MD~ Providers Consult Date: 12/07/22 Requesting Provider: Teresa Pagan MD Primary Care Provider: Lily Aldrich II, MD HPI Reason for Consult: ESRD management. History of Present Illness: This is a 77-year female with a medical history of CAD, ESRD, HTN, CHF, COPD, DM, dyslipidemia, anemia of renal disease and secondary hyperparathyroidism was admitted after syncopal episode. On evaluation in emergency room patient had a CT brain and cervical spine which showed no acute finding. EKG shows prolonged QT interval. She was found to have multiple episodes of nonsustained V. tach ontelemetry. Patient was admitted at [facility] in October 2022 for fall and was also found to have a nonsustained V. tach. She was seen by the cardiology at the time. 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 She currently goes to the [facility] dialysis unit 3 times a week on MWF schedule. She is currently has AV fistula as a dialysis access. Patientreported she had at home routine hemodialysis yesterday and has no incident during or after dialysis. Nephrology is consulted for ESRD management during the hospital stay. Patient was seen and examined bedside feeling better and wouldlike to go home this weekend. Review of Systems Review of Systems All other systems reviewed & are negative unless noted below or in HPI Review of systems: Cardiovascular: denies any chest pain, palpitation Pulmonary: denies any cough, hemoptysis Gastrointestinal: denies any nausea, vomiting, diarrhea Neurological :denies any headache, numbness, weakness Endocrine: denies any polyuria, polydipsia Dermatological: denies any itching or rash [facility] Medical History (Updated 12/07/22 @ 11:34 by Wood Zavala MD) Anemia Anxiety Anxiety and depression Arthritis AV fistula left CAD (coronary artery disease) Cataract had bilateral PHACO Cervical spinal stenosis CHF (congestive heart failure) Chronic back pain Chronic kidney disease COPD (chronic obstructive pulmonary disease) Diabetes GERD (gastroesophageal reflux disease) HTN (hypertension) Hyperlipidemia Insomnia Irregular heart rhythm prior to stent placement per pt report Lumbosacral spondylolysis LVH (left ventricular hypertrophy) Neck pain with history of cervical spinal surgery Neuropathy right thigh and feet Pneumonia Polymyalgia Skin cancer mohs procedure for removal Sleep apnea Surgical History H/O heart artery stent History of appendectomy History of back surgery lumbar History of x2 History of carpal tunnel release bilateral History of coronary angioplasty with insertion of stent History of D&C History of shoulder surgery rt shoulder History of tonsillectomy History of total abdominal hysterectomy and bilateral salpingo-oophorectomy Family History Father Heart disease Cancer Mother Cancer Diabetes Social History Smoking Status: Never smoker Substance Use Type: None Social History Comments: adult son Meds Medications & Allergies Allergies lisinopril Allergy (Verified 12/06/22 18:31) Cough Home Medications atorvastatin 40 mg tablet 40 mg PO QPM 11/19/16 [History Confirmed 12/06/22] multivitamin 1 tab PO DAILY 09/07/19 [History Confirmed 12/06/22] aspirin 81 mg tablet,delayed release 81 mg PO DAILY 11/25/19 [History Confirmed 12/06/22] cholecalciferol (vitamin D3) 25 mcg (1,000 unit) tablet (Vitamin D3) 25 mcg PO DAILY 11/25/19 [History Confirmed 12/06/22] citalopram 40 mg tablet 40 mg PO DAILY 11/25/19 [History Confirmed 12/06/22] albuterol sulfate 0.63 mg/3 mL solution for nebulization 0.63 mg inhalation QID PRN SOB 06/26/21 [History Confirmed 12/06/22] dextrose 40 % oral gel (Glutose-15) 0.6 g PO PRN PRN Hypoglycemia #112.5 grams 11/20/21 [Rx Confirmed 12/06/22] docusate sodium 100 mg capsule 100 mg PO BID #60 caps 11/20/21 [Rx Confirmed 12/06/22] insulin aspart U-100 100 unit/mL (3 mL) subcutaneous pen (Novolog FlexPen U-100 Insulin aspart) 1 sliding scale dose subcut TID.WM.HS #15 mL 11/20/21 [Rx Confirmed 12/06/22] pen needle, diabetic 32 gauge x 5/32 (BD Ultra-Fine Lexis Pen Needle) #100 ea 11/20/21 [Rx Confirmed 12/06/22] calcium acetate(phosphat bind) 667 mg capsule 667 mg PO TID.WITH.MEALS 60 days #240 caps 02/26/22 [Rx Confirmed 12/06/22] pantoprazole 40 mg tablet,delayed release 40 mg PO DAILY 05/17/22 [History Confirmed 12/06/22] sennosides 8.6 mg tablet (senna) 8.6 mg PO BID 05/17/22 [History Confirmed 12/06/22] carvedilol 3.125 mg tablet 3.125 mg PO BID.WITH.MEALS 30 days #60 tabs 10/31/22 [Rx Confirmed 12/06/22] diclofenac sodium 1 % topical gel (Voltaren Arthritis Pain) 4 g topical QID #0 grams 10/31/22 [Rx Confirmed 12/06/22] furosemide 20 mg tablet 60 mg PO BID 30 days #180 tabs 10/31/22 [Rx Confirmed 12/06/22] fluticasone fur. 100 mcg-umeclid 62.5 mcg-vilant 25 mcg inhalat.powder (Trelegy Ellipta) 1 ea inhalation DAILY 12/06/22 [History Confirmed 12/06/22] oxycodone-acetaminophen 5 mg-325 mg tablet 1 tab PO Q4-6H PRN Pain 12/06/22 [History Confirmed 12/06/22] pramipexole 0.5 mg tablet 0.5 mg PO HS 12/06/22 [History Confirmed 12/06/22] prednisone 10 mg tablet 10 mg PO DAILY 12/06/22 [History Confirmed 12/07/22] midodrine 5 mg tablet 5 mg PO TID PRN Hypotension 12/07/22 [History Confirmed 12/07/22] Active Medications: Active Medications Albuterol (Albuterol Neb 2.5 Mg/3 Ml Vial.Neb) 0.63 mg INHALATION QID PRN PRN Reason: Shortness Of Breath Stop: 12/07/23 05:33 Aspirin (Aspirin 81 Mg Tablet.) 81 mg PO DAILY YESSENIA Stop: 12/07/23 08:59 Last Admin: 12/07/22 09:46 Dose: 81 mg Atorvastatin Calcium (Atorvastatin 40 Mg Tablet) 40 mg PO QPM YESSENIA Stop: 12/07/23 20:59 Budesonide/Formoterol Fumarate (Budesonide/Formoterol 80-4.5 Mcg 60 Puff/6.9 Gm Hfa.Aer.Ad) 2 puff INHALATION BID YESSENIA Stop: 12/07/23 08:59 Last Admin: 12/07/22 08:07 Dose: 2 puff Calcium Acetate (Calcium Acetate 667 Mg Capsule) 667 mg PO TID.WITH.MEALS YESSENIA Stop: 12/07/23 07:59 Last Admin: 12/07/22 09:45 Dose: 667 mg Carvedilol (Carvedilol 3.125 Mg Tablet) 3.125 mg PO BID.WITH.MEALS YESSENIA Stop: 12/07/23 07:59 Last Admin: 12/07/22 09:46 Dose: 3.125 mg Diclofenac Sodium (Diclofenac Sodium 1% Gel 50 Gm Tube) 4 gm TOPICAL QID YESSENIA Stop: 12/07/23 08:59 Last Admin: 12/07/22 09:46 Dose: 4 gm Docusate Sodium (Docusate 100 Mg Capsule) 100 mg PO BID YESSENIA Stop: 12/07/23 08:59 Last Admin: 12/07/22 09:45 Dose: 100 mg Glucose (Dextrose 40% Gel 15 Gm Tube) 0.6 gm PO PRN PRN PRN Reason: Hypoglycemia Stop: 12/07/23 05:09 Insulin Aspart (Insulin Aspart 300 Units/3 Ml Insuln.Pen) 0 units SUBCUT TID.WM.[facility]; Protocol Stop: 12/07/23 07:59 Last Admin: 12/07/22 09:56 Dose: 2 units Ipratropium Chualar (Ipratropium Chualar 0.5 Mg/2.5 Ml Vial.Neb) 0.5 mg INHALATION QID [facility] Stop: 12/07/23 08:59 Last Admin: 12/07/22 08:06 Dose: 0.5 mg Midodrine (Midodrine 5 Mg Tablet) 5 mg PO TID PRN PRN Reason: Hypotension Stop: 12/07/23 08:59 Multivitamins (Multivitamin 1 Tab Tablet) 1 tab PO DAILY [facility] Stop: 12/07/23 08:59 Last Admin: 12/07/22 09:45 Dose: 1 tab Oxycodone/Acetaminophen (Oxycodone/Acetaminophen 5-325 Mg Tablet) 1 tab PO Q6H PRN PRN Reason: Pain Pantoprazole Sodium (Pantoprazole 40 Mg Tablet.) 40 mg PO DAILY [facility] Stop: 12/07/23 08:59 Last Admin: 12/07/22 09:45 Dose: 40 mg Pramipexole Dihydrochloride (Pramipexole 0.5 Mg Tablet) 0.5 mg PO [facility] Stop: 12/07/23 21:59 Prednisone (Prednisone 10 Mg Tablet) 10 mg PO DAILY [facility] Stop: 12/10/22 08:59 Last Admin: 12/07/22 09:45 Dose: 10 mg Sennosides (Sennosides 8.6 Mg Tablet) 1 tab PO BID [facility] Stop: 12/07/23 08:59 Last Admin: 12/07/22 09:45 Dose: 1 tab Sodium Chloride (Sodium Chloride 0.9 % 10 Ml Syringe) 0 ml IV-PUSH PRN PRN PRN Reason: Flush Stop: 12/06/23 18:30 Vitamin D (Cholecalciferol 25 Mcg (1,000 Units) Tablet) 25 mcg PO DAILY [facility] Stop: 12/07/23 08:59 Last Admin: 12/07/22 09:45 Dose: 25 mcg Exam Physical Exam Vital Signs: Temp Pulse Resp BP Pulse Ox O2 Del Method O2 Flow Rate 97.5 F L 63 18 136/63 100 Nasal Cannula 3 12/07/22 08:11 12/07/22 08:11 12/07/22 08:11 12/07/22 08:11 12/07/22 08:11 12/07/22 08:11 12/07/22 08:11 Narrative: General: Appears comfortable and not in distress Heart: S1-S2, no rub Lung: Bilateral air entry, no wheezing or crackles Abdomen: Soft, positive bowel sounds Extremities: No edema, no cyanosis Head: Atraumatic, normocephalic Ear: No gross hearing Deficit or external ear redness Eyes: No pallor or redness Neck: No JVD or visible mass Skin: No rashes , warm to touch IS TECHNICIAN: Awake,Alert, following simple command Musculoskeletal: No joint swelling or limitation of movement Psychiatric: Cooperative, normal mood and affect Results Labs 12/07/22 05:00 12/07/22 05:00 Labs: 12/06/22 12/07/22 18:48 05:00 BUN 25 35 H Creatinine 2.58 H 3.15 H D Radiology Impressions Impressions - last 24 hours: Impressions Cervical Spine CT 12/06/22 18:47 IMPRESSION: No fracture. Stable degenerative and postoperative changes. Impression dictated by: David Archer M.D.12/06/2022 8:16 PM Dictation Location: [place] [address] 12/06/22 18:47 IMPRESSION: No acute intracranial findings. Impression dictated by: David Archer M.D.12/06/2022 8:12 PM Dictation Location: [place] [address] Chest X-Ray 12/06/22 18:48 IMPRESSION: Redemonstration of moderate right basilar pleural-parenchymal changes. Impression dictated by: David Archer M.D.12/06/2022 8:04 PM Dictation Location: [place] [address] Any impression(s) listed above is documentation that was entered by the reading physician into a diagnostic report(s) for Cinthya Wilson. I have reviewed the report(s) and am incorporating any findings in the treatment plan of this patient where applicable. A&P - Nephrology Assessment/Plan (1) Syncopal episodes: Assessment/Problem Details: Patient presents with a syncope. She has a history of nonsustained V. tach in the past. She was seen by the cardiology at [facility] in October 2022.Her echocardiogram in February 2022 showed EF 45%. (2) ESRD on dialysis: Assessment/Problem Details: She has a ESRD due to the renovascular atherosclerotic disease and diabetes mellitus. She currently goes to [facility] with dialysis 3 times a week on MWF schedule. (3) Type 2 diabetes mellitus with diabetic chronic kidney disease: Assessment/Problem Details: She has insulin-dependent type 2 diabetes mellitus. (4) Benign hypertension with end-stage renal disease: Assessment/Problem Details: Her blood pressure is controlled. She appears to be euvolemic and well compensated. She sometimes asked midodrine for intradialytic hypotension. (5) Anemia of renal disease: Assessment/Problem Details: Her hemoglobin within the goal. (6) Secondary hyperparathyroidism: Assessment/Problem Details: She has a secondary hyperparathyroidism due to the ESRD and hyperphosphatemia. Currently take calcium acetate at home. Plan * No need for dialysis today. Next dialysis will be on Friday. * Continue home dose of the calcium acetate. * Will continue outpatient dose of the Aranesp with hemodialysis. * Continue home dose of the Lasix. * Continue DM management as per the primary hospitalist team. The goal of blood sugar is between 100 to 150 mg/dL. * Check renal function daily monitor input output * Thanks for the consult. We will continue follow with you. Please feel free to call us with any question. Documented By: Wood Zavala MD 12/07/22 1120 Signed By: <Electronically signed by Wood Zavala MD> 12/07/22 6895 [facility] Work Phone: [phone]) 262-665610-28-2023 Progress note Author Teresa Pagan [facility] December 07, 2022 9:47am Note Date/Time December 07, 2022 9 :47am [facility] [address] [place], [place] [id number] Event Note Signed Patient: Cinthya Wilson MR#: [id number] : 1945 Acct:[id number] Age/Sex: 77 / F Adm Date: 3 Loc: 4N Room: 7N8119-3 Type: ADM INOo Attending Dr: Teresa Pagan MD Copies to: MD Teresa Bourgeois II, MD~ Status Event Note Event Note DATE OF EVENT: 12/07/22 TIME OF EVENT: 09:45 EVENT DETAILS: Patient was admitted after midnight please refer to H&P for details regarding her presentation. She was recently in the hospital for a fall and found to havenonsustained V. tach seen by cardiology service with recommendation to follow-upwith her dental office receptionist as an outpatient. She does have history of coronary disease with remote PCI. Scheduled to see her dental office receptionist next week. She was again brought to the emergency room after having a syncopal episode. Did mention having intermittent dizziness and had a syncopal episode around 2 monthsago. Cardiology has been consulted in view of her recent nonsustained V. tach with ventricular arrhythmia as a possible cause for syncope and recurrent dizziness. Documented By: Teresa Pagan MD 12/07/22 0944 Signed By: <Electronically signed by Teresa Pagan MD> 12/07/2247 [facility] Work Phone: [phone]) 821-571510-28-2023 History and physical note Author Pennie Love [facility] December 07, 2022 2:16am Note Date/Time December 07, 2022 2 :16am [facility] [address] [place], [place] [id number] Hospitalist H&P Signed Patient: Cinthya Wilson MR#: [id number] : 1945 Acct:[id number] Age/Sex: 77 / F Adm Date: 3 Loc: 4N Room: 3Z9035-6 Type: ADM INOo Attending Dr: Pennie Love DO Copies to: MD Pennie Bourgeois II, DO~ HPI DATE OF EXAMINATION: 12/07/22 CHIEF COMPLAINT: Syncope HISTORY OF PRESENT ILLNESS: This patient is a very pleasant 77-year-old female who presented to the emergency department via EMS earlier this evening with a report of syncopal episode. Described loss of consciousness and trauma to the posterior head. Only anticoagulation taking chronically is baby aspirin daily. Vitals on arrival reveal a temperature of 97.3 ?F, heart rate 79 bpm, respirations 20/min,blood pressure 112/57, 99% oxygen saturation on 3 L. Patient has a history of end-stage renal disease on hemodialysis and underwent her regularly scheduled dialysis without issue prior to this event which occurred later. She does have a notable history of lower blood pressures in the past and takes midodrine 5 mg 3 times daily. Labs reveal leukocytosis of 13.3, neutrophilic in origin suspected stress reaction. Coagulation studies normal. Chemistries consistent with ESRD. Potassium 3.6. Magnesium 2.0. Hyperglycemia of 288, known insulin-dependent diabetic. High-sensitivity troponin 17.6, lower than previous readings, BNP 950. CT of the head and cervical spine were nonacute. Multiple nonsustained runs of arrhythmia were reported while the patient was in the emergency department. Her initial EKGShowed previously noted first-degree AV block along with the presence of PVCs. Her QTc is notably more prolonged than prior EKG at 501. Patient was admitted for syncopal episode and cardiology evaluation. Subsequent repeat EKG roughly 3 hours later shows increasing amountof ectopy and possible 2-3 beat runs of V. tach are captured. Furthermore QTc is further prolonged at 528 ms. It is notable the patient was recently hospitalized here in mid October after experiencing a fall and was noted to have nonsustained V. tach at that time as well. Similar intermittent near syncopal symptoms occurring at that time. Received amiodarone IV drip at that time which was discontinued. He was discharged on 3.125 mg of carvedilol twice daily. Physical Examination: GENERAL APPEARANCE: Alert, up in bed AAOx3 HEENT: Posterior head tenderness, MMM NECK: Neck soft w/o masses, no JVD CARDIAC: Normal S1 and S2. No S3, S4 or murmurs. LUNGS: Clear to auscultation bilaterally. no wheeze/rhonchi/rales ABDOMEN: Positive bowel sounds. Soft, nontender. No guarding or signs of an acute abdomen MUSCULOSKELETAL: No joint erythema or tenderness. EXTREMITIES: No clubbing, cyanosis or edema PSYCHIATRIC: Appropriate mood and affect Assessment and plan: 1. Syncopal episode 2. Prolonged QTc 3. Nonsustained ventricular tachycardia 4. Chronic systolic and diastolic congestive heart failure Patient presents with syncope, total loss of consciousness and subsequent head trauma. She has had intermittent dizziness and was evaluated for similar cardiac issues on previous admission. On this presentation however her QT is increasingly prolonged. Upon review of her medications regularly prescribed citalopram is noted to cause prolonged QT and this will be held for now. Consult to cardiology for any further recommendations. Monitor on telemetry. Maintain potassium greater than 4, magnesium greater than 2. Judicious repletion given kidney function. Her home dose of midodrine can be continued along with her low dose carvedilol. Hold home Lasix as not to further lower electrolytes. 5. End-stage renal disease on hemodialysis Consult to nephrology for management of dialysis. Continue home phosphate binders 6. Leukocytosis 7. Traumatic fall Superficial injury to posterior scalp. CT imaging negative for acute fractures or bleeds. Her white blood cell count is likely a stress reaction from this trauma. No infectious symptoms otherwise. Continue to trend with a.m. labs. 8. Insulin-dependent diabetes mellitus Regular Accu-Cheks with sliding scale insulin. Hypoglycemic in the 280s on arrival. 9. Coronary artery disease Continue her regular medical management of this with home beta-madhu, baby aspirin and statin. No indication of ongoing ACS. 10. COPD 11. Chronic hypoxic respiratory failure No signs of exacerbation. Patient remains on baseline 3 L nasal cannula. Continue home Trelegy, albuterol inhalers Disposition: Patient is admitted for recurrent cardiac arrhythmias and complete syncopal event with loss of consciousness. She has further prolongation of her QTc and will require inpatient monitoring on telemetry as well as consultation with cardiology and nephrology for ongoing medical management. She is thus admitted as an inpatient for a stay that will surpass greater than 2 midnights. Review of Systems Review of Systems All other systems reviewed & are negative unless noted below or in HPI [facility] Medical History Anemia Anxiety Anxiety and depression Arthritis AV fistula left CAD (coronary artery disease) Cataract had bilateral PHACO Cervical spinal stenosis CHF (congestive heart failure) Chronic back pain Chronic kidney disease COPD (chronic obstructive pulmonary disease) Diabetes GERD (gastroesophageal reflux disease) HTN (hypertension) Hyperlipidemia Insomnia Irregular heart rhythm prior to stent placement per pt report Lumbosacral spondylolysis LVH (left ventricular hypertrophy) Neck pain with history of cervical spinal surgery Neuropathy right thigh and feet Pneumonia Polymyalgia Skin cancer mohs procedure for removal Sleep apnea Surgical History H/O heart artery stent History of appendectomy History of back surgery lumbar History of x2 History of carpal tunnel release bilateral History of coronary angioplasty with insertion of stent History of D&C History of shoulder surgery rt shoulder History of tonsillectomy History of total abdominal hysterectomy and bilateral salpingo-oophorectomy Family History Father Heart disease Cancer Mother Cancer Diabetes Social History Smoking Status: Never smoker Substance Use Type: None Social History Comments: adult son Meds Medications and Allergies Allergies lisinopril Allergy (Verified 12/06/22 18:31) Cough Home Medications atorvastatin 40 mg tablet 40 mg PO QPM 11/19/16 [History Confirmed 12/06/22] multivitamin 1 tab PO DAILY 09/07/19 [History Confirmed 12/06/22] aspirin 81 mg tablet,delayed release 81 mg PO DAILY 11/25/19 [History Confirmed 12/06/22] cholecalciferol (vitamin D3) 25 mcg (1,000 unit) tablet (Vitamin D3) 25 mcg PO DAILY 11/25/19 [History Confirmed 12/06/22] citalopram 40 mg tablet 40 mg PO DAILY 11/25/19 [History Confirmed 12/06/22] albuterol sulfate 0.63 mg/3 mL solution for nebulization 0.63 mg inhalation QID PRN SOB 06/26/21 [History Confirmed 12/06/22] dextrose 40 % oral gel (Glutose-15) 0.6 g PO PRN PRN Hypoglycemia #112.5 grams 11/20/21 [Rx Confirmed 12/06/22] docusate sodium 100 mg capsule 100 mg PO BID #60 caps 11/20/21 [Rx Confirmed 12/06/22] insulin aspart U-100 100 unit/mL (3 mL) subcutaneous pen (Novolog FlexPen U-100 Insulin aspart) 1 sliding scale dose subcut TID.WM.HS #15 mL 11/20/21 [Rx Confirmed 12/06/22] pen needle, diabetic 32 gauge x 5/32 (BD Ultra-Fine Lexis Pen Needle) #100 ea 11/20/21 [Rx Confirmed 12/06/22] calcium acetate(phosphat bind) 667 mg capsule 667 mg PO TID.WITH.MEALS 60 days #240 caps 02/26/22 [Rx Confirmed 12/06/22] pantoprazole 40 mg tablet,delayed release 40 mg PO DAILY 05/17/22 [History Confirmed 12/06/22] sennosides 8.6 mg tablet (senna) 8.6 mg PO BID 05/17/22 [History Confirmed 12/06/22] carvedilol 3.125 mg tablet 3.125 mg PO BID.WITH.MEALS 30 days #60 tabs 10/31/22 [Rx Confirmed 12/06/22] diclofenac sodium 1 % topical gel (Voltaren Arthritis Pain) 4 g topical QID #0 grams 10/31/22 [Rx Confirmed 12/06/22] furosemide 20 mg tablet 60 mg PO BID 30 days #180 tabs 10/31/22 [Rx Confirmed 12/06/22] fluticasone fur. 100 mcg-umeclid 62.5 mcg-vilant 25 mcg inhalat.powder (Trelegy Ellipta) 1 ea inhalation DAILY 12/06/22 [History Confirmed 12/06/22] midodrine 5 mg tablet 5 mg PO TID 12/06/22 [History Confirmed 12/06/22] oxycodone-acetaminophen 5 mg-325 mg tablet 1 tab PO Q4-6H PRN Pain 12/06/22 [History Confirmed 12/06/22] pramipexole 0.5 mg tablet 0.5 mg PO HS 12/06/22 [History Confirmed 12/06/22] prednisone 10 mg tablet 10 mg PO DAILY 12/06/22 [History Confirmed 12/07/22] Exam Physical Exam Vital Signs: Temp Pulse Resp BP Pulse Ox O2 Del Method O2 Flow Rate 98.3 F 77 18 144/73 H 98 Nasal Cannula 3 12/06/22 23:22 12/06/22 23:22 12/06/22 23:22 12/06/22 23:22 12/06/22 23:22 12/07/22 00:00 12/07/22 00:00 Results Lab Results Labs: Laboratory Last Values Corrected WBC 13.3 X10E3/uL (3.8-11.6) H 12/06/22 18:48 Uncorrected WBC Count 13.3 x10E3/uL (3.8-11.6) H 12/06/22 18:48 RBC 3.83 X10E6/uL (3.60-5.00) 12/06/22 18:48 Hgb 11.0 g/dL (11.8-15.4) L 12/06/22 18:48 Hct 35.1 % (34.0-46.4) 12/06/22 18:48 MCV 91.7 fl (80-100) 12/06/22 18:48 MCH 28.7 pg (24.7-34.3) 12/06/22 18:48 MCHC 31.3 g/dL (32.0-35.0) L 12/06/22 18:48 RDW 17.6 % (11.9-15.3) H 12/06/22 18:48 Plt Count 431 x10E3/uL (150-450) 12/06/22 18:48 MPV 7.3 fl (6.3-10.7) 12/06/22 18:48 Neut % (Auto) 89.9 % (.) 12/06/22 18:48 Lymph % (Auto) 5.4 % (.) 12/06/22 18:48 Mchenry % (Auto) 4.3 % (.) 12/06/22 18:48 Eos % (Auto) 0.1 % (.) 12/06/22 18:48 Baso % (Auto) 0.3 % (.) 12/06/22 18:48 Nucleat RBC Rel Count 0.1 /100 WBC (0-0.5) 12/06/22 18:48 Neut # (Auto) 11.9 x10E3/uL (1.8-7.7) H 12/06/22 18:48 Lymph # (Auto) 0.7 x10E3/uL (1.00-4.8) L 12/06/22 18:48 Mchenry # (Auto) 0.6 x10E3/uL (0.0-0.8) 12/06/22 18:48 Eos # (Auto) 0.0 x10E3/uL (0.0-0.45) 12/06/22 18:48 Baso # (Auto) 0.0 x10E3/uL (0.0-0.2) 12/06/22 18:48 Monocyte Dist Width 21.25 % (0.00-20.00) H 12/06/22 18:48 PT 12.4 Seconds (9.0-12.9) 12/06/22 18:48 INR 1.0 12/06/22 18:48 APTT 29.3 Seconds (25.1-36.5) 12/06/22 18:48 PHA Creatinine Clear 16.27 12/06/22 18:48 Sodium 132 mmol/L (136-145) L 12/06/22 18:48 Potassium 3.6 mmol/L (3.5-5.1) 12/06/22 18:48 Chloride 91 mmol/L (98-107) L 12/06/22 18:48 Carbon Dioxide 27.9 mmol/L (21.0-31.0) 12/06/22 18:48 Anion Gap 16.7 mEq/L (6.0-15.0) H 12/06/22 18:48 BUN 25 mg/dL (7-25) 12/06/22 18:48 Creatinine 2.58 mg/dL (0.60-1.20) H 12/06/22 18:48 Est GFR (CKD-EPI) 18.839 mL/Min 12/06/22 18:48 Glucose 288 mg/dL (70-100) H 12/06/22 18:48 Calcium 9.8 mg/dL (8.6-10.3) 12/06/22 18:48 Magnesium 2.0 mg/dL (1.9-2.7) 12/06/22 18:48 Troponin I High Sens 17.6 pg/mL (0.0-15.0) H 12/06/22 18:48 B-Natriuretic Peptide 950.0 pg/mL (5-100) H 12/06/22 18:48 Assessment & Plan IP vs OBS Justification Based on differential dx, clinical care plan, and risk of adverse events, if untreated, in my clinical judgement this patient requires an acute care setting as: INPATIENT because of an expectation of an over 2 midnight stay. Estimated length of stay (# of days): 3 Documented By: Pennie Love DO 12/07/22 01 50 Signed By: <Electronically signed by Pennie Love DO> 12/07/22 0216 [facility] [facility] Work Phone: [phone]) 623-666508-28-2023 NoteCoronary artery disease is stable Continue GDMT continue risk factor modifications- heart healthy diet, regular exercise as tolerated and continue all medications.[facility] 10-07-2022 NoteHypertension is currently labile and symptomatic hypotension [facility]08-28-[address]estableUnSt[facility] Hospital08-28-2023 NoteRemains hypotensive especially on dialysis days, currently she is lightheaded and dizzy sitting in office for exam. Given water and recommended her to take another midodrine. Recommend her to take midodrine about 1 hour before every dialysis session on to prevent symptomsatic hypotension and may need to increase dose to 10 mg tid prn if needed. She voiced understandingUnSt. Elizabeth Hospital 10-04-2022 NotePatient here c/o dizziness. She was given script for midodrine at last apt a few weeks ago. She has been taking midodrine prn, mostly once daily. She has already taken 2 doses today. She denies chest pain. Review of Systems Constitutional: Positive for malaise/fatigue. Cardiovascular: Positive for dyspnea on exertion. Respiratory: Positive for cough and shortness of breath. Musculoskeletal: Positive for arthritis, back pain, joint pain and muscle weakness. Neurological: Positive for dizziness and light-headedness. All other systems reviewed and are negative.[facility] 10-04-2022 NoteUTP CARDIOLOGY PROGRESS NOTE HPI: Cinthya Wilson is a 77 y.o. female here for F/U for hypotension Patient here c/o dizziness. She was given script for midodrine at last apt a few weeks ago. She has been taking midodrine prn, mostly once daily. She has already taken 2 doses today. She denies chest pain. Patient states that most days that she goes to dialysis there have been difficulty running dialysis because of hypotension and being able to pull enough fluid and complete exchange as they needed so she is having dialysis 3 to 4 hours at a time. She denies chest pain reports typical shortness of breath that is on oxygen 24/7. Denies any weight gain or fluid retention. Admits occasional lightheaded dizziness especially when she notes her blood pressure is low. This morning her systolic blood pressure was in the 80s prior to taking midodrine for dialysis today. In office she is dizzy and lightheaded sitting during my examination, Therefore water and another midodrine was given. Review of Systems Constitutional: Positive for malaise/fatigue. Cardiovascular: Positive for dyspnea on exertion. Respiratory: Positive for cough and shortness of breath. Musculoskeletal: Positive for arthritis, back pain, joint pain and muscle weakness. Neurological: Positive for dizziness and light-headedness. All other systems reviewed and are negative. Visit Vitals BP (!) 99/44 (BP Location: Right arm, Patient Position: Sitting) Pulse 78 Ht 1.626 m (5' 4 ) Wt 60.8 kg (134 lb) SpO2 97% BMI 23.00 kg/m??? Smoking Status Never BSA 1.66 m??? Allergies Allergen Reactions Benazepril Lisinopril Meloxicam Other due to kidney issues in past with medication Medications: Current Outpatient Medications on File Prior to Visit Medication Sig Dispense Refill albuterol 2.5 mg /3 mL (0.083 %) nebulizer solution albuterol sulfate 2.5 mg/3 mL (0.083 %) solution for nebulization aspirin 81 mg EC tablet Take 81 mg by mouth in the morning. atorvastatin (Lipitor) 40 mg tablet Take 40 mg by mouth at bedtime. calcium acetate (Phoslo) 667 mg capsule Take 1,334 mg by mouth with breakfast, with lunch, and with evening meal. cholecalciferol (Vitamin D-3) 25 MCG (1000 units) tablet every 12 (twelve) hours. citalopram (CeleXA) 40 mg tablet Take 40 mg by mouth in the morning. hndaatilxsf-btfoblgyb-fjqlzkjh (Trelegy Ellipta) 200-62.5-25 mcg blister with device Inhale. furosemide (Lasix) 40 mg tablet Take 1.5 tablets by mouth in the morning and at bedtime. HumaLOG KwikPen Insulin 100 unit/mL injection HYDROcodone-acetaminophen ([place]) 7.5-325 mg tablet Take 1 tablet by mouth if needed. midodrine (Proamatine) 5 mg tablet Take 1 tablet (5 mg) by mouth before breakfast, before lunch, and before evening meal. For low blood pressure, lightheadedness, dizziness 270 tablet 3 pantoprazole (ProtoNix) 40 mg EC tablet Take 40 mg by mouth before breakfast. Do not crush, chew, or split. pramipexole (Mirapex) 0.25 mg tablet Take 0.25 mg by mouth once daily as directed. valsartan (Diovan) 160 mg tablet Take 80 mg by mouth in the morning. [DISCONTINUED] carvedilol (Coreg) 12.5 mg tablet Take 0.5 tablets by mouth with breakfast and with evening meal. [DISCONTINUED] isosorbide mononitrate ER (Imdur) 60 mg 24 hr tablet Take 30 mg by mouth in the morning. Do not crush or chew. No current facility-administered medications on file prior to visit. Physical Exam: Constitutional: Appearance: Normal appearance. Without apparent distress, chronically ill, on oxygen HENT: Head: Normocephalic and atraumatic. Nose: Nose normal. Mouth/Throat: Mouth: Mucous membranes are moist. Eyes: Extraocular Movements: Extraocular movements intact. Conjunctiva/sclera: Conjunctivae normal. Neck: Vascular: No JVD. Cardiovascular: Rate and Rhythm: Normal rate and regular rhythm. Pulses: Dorsalis pedis pulses are 3 on the right side and 3on the left side. Posterior tibial pulses are 3 on the right side and 3 on the left side. Heart sounds: RUSB 2/6 systolic murmur, S1 normal and S2 normal. Pulmonary: Effort: Pulmonary effort is normal. Breath sounds: Normal breath sounds. Abdominal: General: Bowel sounds are normal. Palpations: Abdomen is soft. Musculoskeletal: General: Normal range of motion. Cervical back: Normal range of motion. Right lower leg: No edema. Left lower leg: No edema. Skin: General: Skin is warm and dry. Capillary Refill: Capillary refill takes less than 2 seconds. Neurological: General: No focal deficit present. Mental Status: She is alert and oriented to person, place, and time. Psychiatric: Mood and Affect: Mood normal. Behavior: Behavior normal. Thought Content: Thought content normal. Judgment: Judgment normal. Labs: 08/18/22 CBC stable, renal function stable, electrolytes stable PLT 232 08/06/22 Lipid level well controlled Last lab values have been reviewed CV Testing: (more content not included)...[facility] 09-09-2022 NoteNoted hypotension r/t hemodialysis therefore prescribed midodrine 5 mg tid- d/w pt to take tid on dialysis days and if needed for low b/p or symptoms on her non dialysis days- she voiced understanding Pt to call office for any concernsUnSt. Elizabeth Hospital07-31-20[address] NotestableUnSt. Elizabeth Hospital07-31-2023 NoteCurrently stable without exacerbation, remains euvolemic with hemodialysis and lasix Continue GDMT- ASA, lipitor, coreg, valsartan and lasixUnSt. Elizabeth Hospital07-31-2023 NoteStable no concerns todayUnSt. Elizabeth Hospital07-31-2023 NotePatient here c/o lightheadedness. She was seen in [facility] ED a few weeks ago for a fall. She states all she remembers was waking up on the floor bleeding. She does not know if she passed out. Has dialysis 3 times a week. Her PCP gave her 10 days of midodrine to use PRN. Review of Systems Constitutional: Positive for malaise/fatigue. Cardiovascular: Positive for dyspnea on exertion. Respiratory: Positive for cough and shortness of breath. Musculoskeletal: Positive for arthritis, back pain, joint pain and muscle weakness. Neurological: Positive for dizziness and light-headedness. All other systems reviewed and are negative.[facility] 09-09-2022 NoteUTP CARDIOLOGY PROGRESS NOTE HPI: Cinthya Wilson is a 77 y.o. female here for No chief complaint on file. Patient here c/o lightheadedness. She was seen in [facility] ED a few weeks ago for a fall. She states all she remembers was waking up on the floor bleeding. She does not know if she passed out. Has dialysis 3 times a week. Her PCP gave her 10 days of midodrine to use PRN. Noted significant hypotension with review of b/p log especially on hemodialysis days. Reports great improvement of low blood pressure with use of midodrine. Denied chest pain, or worsening shortness of breath. Denied any weight gain or water retention Review of Systems Constitutional: Positive for malaise/fatigue. Cardiovascular: Positive for dyspnea on exertion. Respiratory: Positive for cough and shortness of breath. Musculoskeletal: Positive for arthritis, back pain, joint pain and muscle weakness. Neurological: Positive for dizziness and light-headedness. All other systems reviewed and are negative. Visit Vitals BP (!) 98/47 (BP Location: Right arm, Patient Position: Sitting) Pulse 70 Ht 1.626 m (5' 4 ) Wt 61.2 kg (135 lb) SpO2 95% BMI 23.17 kg/m??? Smoking Status Never BSA 1.66 m??? Allergies Allergen Reactions Benazepril Lisinopril Meloxicam Other due to kidney issues in past with medication Medications: Current Outpatient Medications on File Prior to Visit Medication Sig Dispense Refill albuterol 2.5 mg /3 mL (0.083 %) nebulizer solution albuterol sulfate 2.5 mg/3 mL (0.083 %) solution for nebulization aspirin 81 mg EC tablet Take 81 mg by mouth in the morning. atorvastatin (Lipitor) 40 mg tablet Take 40 mg by mouth at bedtime. calcium acetate (Phoslo) 667 mg capsule Take 1,334 mg by mouth with breakfast, with lunch, and with evening meal. carvedilol (Coreg) 12.5 mg tablet Take 0.5 tablets by mouth with breakfast and with evening meal. cholecalciferol (Vitamin D-3) 25 MCG (1000 units) tablet every 12 (twelve) hours. citalopram (CeleXA) 40 mg tablet Take 40 mg by mouth in the morning. atxixlmkpbe-xtzmkjuok-pioyhnxd (Trelegy Ellipta) 200-62.5-25 mcg blister with device Inhale. furosemide (Lasix) 40 mg tablet Take 1.5 tablets by mouth in the morning and at bedtime. HumaLOG KwikPen Insulin 100 unit/mL injection HYDROcodone-acetaminophen ([place]) 7.5-325 mg tablet Take 1 tablet by mouth if needed. isosorbide mononitrate ER (Imdur) 60 mg 24 hr tablet Take 30 mg by mouth in the morning. Do not crush or chew. pantoprazole (ProtoNix) 40 mg EC tablet Take 40 mg by mouth before breakfast. Do not crush, chew, or split. pramipexole (Mirapex) 0.25 mg tablet Take 0.25 mg by mouth once daily as directed. valsartan (Diovan) 160 mg tablet Take 80 mg by mouth in the morning. [DISCONTINUED] midodrine (Proamatine) 5 mg tablet TAKE 1 TABLET BY MOUTH EVERY MORNING, EVERY EVENING, AND AT BEDTIME FOR 10 DAYS [DISCONTINUED] baclofen (Lioresal) 10 mg tablet Take 110 mg by mouth in the morning. [DISCONTINUED] insulin glargine (Lantus) 100 unit/mL injection Inject 70 Units under the skin in the morning. [DISCONTINUED] meloxicam (Mobic) 7.5 mg tablet every 12 (twelve) hours. [DISCONTINUED] omeprazole (PriLOSEC) [address] capsule omeprazole 40 mg capsule,delayed release TAKE 1 CAPSULE 30 MINUTES BEFORE MORNING MEAL ONCE A DAY [DISCONTINUED] oxyCODONE (Roxicodone) 5 mg immediate release tablet 5 mg. [DISCONTINUED] umeclidinium-vilanteroL (Anoro Ellipta) 62.5-25 mcg/actuation blister with device Anoro Ellipta 62.5 mcg-25 mcg/actuation powder for inhalation INHALE 1 PUFF INTO THE LUNGS EVERY DAY No current facility-administered medications on file prior to visit. Physical Exam: Constitutional: Appearance: Normal appearance. Without apparent distress, chronically ill, on oxygen HENT: Head: Normocephalic and atraumatic. Nose: Nose normal. Mouth/Throat: Mouth: Mucous membranes are moist. Eyes: Extraocular Movements: Extraocular movements intact. Conjunctiva/sclera: Conjunctivae normal. Neck: Vascular: No JVD. Cardiovascular: Rate and Rhythm: Normal rate and regular rhythm. Pulses: Dorsalis pedis pulses are 3 on the right side and 3on the left side. Posterior tibial pulses are 3 on the right side and 3 on the left side. Heart sounds: Normal heart sounds, S1 normal and S2 normal. Pulmonary: Effort: Pulmonary effort is normal. Breath sounds: Normal breath sounds. Abdominal: General: Bowel sounds are normal. Palpations: Abdomen is soft. Musculoskeletal: General: Normal range of motion. Cervical back: Normal range of motion. Right lower leg: No edema. Left lower leg: No edema. Skin: General: Skin is warm and dry. Capillary Refill: Capillary refill takes less than 2 seconds. Neurological: General: No focal deficit present. Mental Status: She is alert and oriented to person, place, and time. Psychiatric: Mood and Affect: Mood normal. Behavior: Behav (more content not included)...[facility]07-31-2023 NoteReviewed pt's B/P log and she has notable hypotension on her days of hemodialysis with noted b/p 68/40 to 98/50- therefore PCP prescribed midodrine 5 mg prn and with 1 dose she noticed improvement. Continue all meds in light her b/p returns to 140-150 systolic on her off days from dialysis.[facility]06-27-2023 NoteRemains mild AI and A stenosis per Echo 03/04UnSt. Elizabeth Hospital06-27-2023 Note Continue statinUnSt. Elizabeth Hospital06-27-2023 NoteCoronary artery disease is stable without any concerning symptoms Continue GDMT continue risk factor modifications- heart healthy diet, regular exercise as tolerated and continue all medications.[facility] 08-06-2022 NoteUTP CARDIOLOGY PROGRESS NOTE HPI: Cinthya Wilson is a 77 y.o. female here for routine f/U for Chronic Combined heart failure, CAD, HPL, HTN, HPI Pt presents today with daughter for routine f/U. Pt states her last hospitalization was this past February for AMS and was determined that she was DAVID/CKD and was initiated on hemodialysis. She continues to have HD 3 times a week- last treatment was yesterday- which she says is why her b/p is low today- but she denied any symptoms to concerns with low b/p. Denied chest pain, reports typical shortness of breath, denied orthopnea and is wearing O2 24/7- she f/U with Dr Cheek - pulmonology. Denied any leg swelling or fluid retention, and states her weight is down since starting HD> Review of Systems Constitutional: Negative. Respiratory: Positive for shortness of breath. Cardiovascular: Negative. Neurological: Negative. All other systems reviewed and are negative. Visit Vitals BP (!) 99/48 Pulse 54 Wt 62.1 kg (137 lb) SpO2 94% Comment: 3 liters o2 BMI 23.52 kg/m??? Smoking Status Never BSA 1.67 m??? Allergies Allergen Reactions Benazepril Lisinopril Meloxicam Other due to kidney issues in past with medication Medications: Current Outpatient Medications on File Prior to Visit Medication Sig Dispense Refill albuterol 2.5 mg /3 mL (0.083 %) nebulizer solution albuterol sulfate 2.5 mg/3 mL (0.083 %) solution for nebulization aspirin 81 mg EC tablet Take 81 mg by mouth in the morning. atorvastatin (Lipitor) 40 mg tablet Take 40 mg by mouth at bedtime. carvedilol (Coreg) 12.5 mg tablet Take 1 tablet by mouth with breakfast and with evening meal. cholecalciferol (Vitamin D-3) 25 MCG (1000 units) tablet every 12 (twelve) hours. citalopram (CeleXA) 40 mg tablet Take 40 mg by mouth in the morning. furosemide (Lasix) 40 mg tablet Take 1.5 tablets by mouth in the morning and at bedtime. HYDROcodone-acetaminophen ([place]) 7.5-325 mg tablet Take 1 tablet by mouth if needed. isosorbide mononitrate ER (Imdur) 60 mg 24 hr tablet Take 60 mg by mouth in the morning. Do not crush or chew. valsartan (Diovan) 160 mg tablet Take 160 mg by mouth in the morning. insulin glargine (Lantus) 100 unit/mL injection Inject 70 Units under the skin in the morning. meloxicam (Mobic) 7.5 mg tablet every 12 (twelve) hours. omeprazole (PriLOSEC) [address] capsule omeprazole 40 mg capsule,delayed release TAKE 1 CAPSULE 30 MINUTES BEFORE MORNING MEAL ONCE A DAY oxyCODONE (Roxicodone) 5 mg immediate release tablet 5 mg. pantoprazole (ProtoNix) 40 mg EC tablet Take 40 mg by mouth before breakfast. Do not crush, chew, or split. umeclidinium-vilanteroL (Anoro Ellipta) 62.5-25 mcg/actuation blister with device Anoro Ellipta 62.5 mcg-25 mcg/actuation powder for inhalation INHALE 1 PUFF INTO THE LUNGS EVERY DAY [DISCONTINUED] hydrALAZINE (Apresoline) 50 mg tablet Take 1 tablet by mouth in the morning, at noon, and at bedtime. [DISCONTINUED] losartan (Cozaar) 25 mg tablet Take 1 tablet (25 mg) by mouth in the morning. 90 tablet 3 No current facility-administered medications on file prior to visit. Physical Exam: Constitutional: Appearance: Normal appearance. Without apparent distress, chronically ill HENT: Head: Normocephalic and atraumatic. Nose: Nose normal. Mouth/Throat: Mouth: Mucous membranes are moist. Eyes: Extraocular Movements: Extraocular movements intact. Conjunctiva/sclera: Conjunctivae normal. Neck: Vascular: No JVD. Cardiovascular: Rate and Rhythm: Normal rate and regular rhythm. Pulses: Dorsalis pedis pulses are 2 on the right side and 2on the left side. Posterior tibial pulses are 2 on the right side and 2 on the left side. Heart sounds: Normal heart sounds, S1 normal and S2 normal. Pulmonary: Effort: Pulmonary effort is normal. Breath sounds: Normal breath sounds. Abdominal: General: Bowel sounds are normal. Palpations: Abdomen is soft. Musculoskeletal: General: Normal range of motion. Cervical back: Normal range of motion. Right lower leg: No edema. Left lower leg: No edema. Skin: General: Skin is warm and dry. Capillary Refill: Capillary refill takes less than 2 seconds. Neurological: General: No focal deficit present. Mental Status: She is alert and oriented to person, place, and time. Psychiatric: Mood and Affect: Mood normal. Behavior: Behavior normal. Thought Content: Thought content normal. Judgment: Judgment normal. Labs: 01/14/22 CBC stable for her Renal function typically elevated Liver function normal Last lab values have been reviewed CV Testin02/22/22 Echo Echocardiogram 08/31/2021 Global left ventricular systolic function is difficult to assess but appears moderately to severely reduced. EF is estimated to be 30 to 35%. Normal right ventricular size and systolic function. Calcified aortic valve with mildly diminished mobility. A limited study was perf (more content not included)... [facility]06-27-2023 NoteCOPD is stable F/U with [facility] SerranoSt. [facility]06-27-2023 NoteHTN is well controlled 99/48- without hypotensive s/s Continue meds She may need midodrine at some point with HD F/U with neprhologyUnSt. Elizabeth Hospital06-27-2023 NoteNYHC III- IV, currently euvolemic with hemodialysis and lasix daily as per nephrology Continue GDMT- ASA, lipitor, coreg, valsartan Diuretic therapy- lasix 60 mg bid Monitor daily weights, I&O, fluid restriction 1.5-2L/day, renal function and electrolytes-[facility]04-10-2023 Discharge summary Author Teresa Pagan [facility] May 20, 2022 1:07pm Note Date/Time May 20, 2022 1:0 5pm [facility] [address] [place] [address] Discharge Summary Signed Patient: Cinthya Wilson MR#: [id number] : 1945 Acct:[id number] Age/Sex: 77 / F Adm Date: 3 Loc: Room: [address] [place] [address]: Teresa Pagan MD Copies to: MD Teresa Bourgeois II, MD~ Providers Date of Discharge: 05/20/22 Discharging Provider: Teresa Pagan Primary Care Provider: Lily Aldrich Consults: 05/17/22 16:43 Consult to Nephrology Routine 05/17/22 16:51 Consult to Gastroenterology Routine 05/20/22 09:57 Consult to Occupational Therapy Routine Consult to Physical Therapy Routine Discharge Diagnosis (1) ESRD (end stage renal disease): (2) Bright red rectal bleeding: (3) Anemia: (4) Systolic and diastolic CHF, acute on chronic: (5) Diabetes: Final Diagnosis Final Discharge Diagnosis: Acute diverticular bleed Summary Hospital Course Hospital course: Patient is a pleasant 77-year-old female with past medical history of end-stage disease on hemodialysis, diabetes mellitus type 2, hypertension and other medical comorbidities. Patient presented to ER with complaint of rectal bleeding which happened after dialysis. She was admitted for acute GI bleed. Hemoglobin was noted to be 9.2 which dropped to 7.7 and received 1 unit packed RBC with improvement hemoglobin to 8.3. GI service was consulted and she underwent colonoscopy which showed diverticulosis but active bleeding. Impression of GI bleed consistent with diverticular bleeding. Patient did mention having history of coronary disease with remote PCI and takes baby aspirin at home. Will recommend to hold aspirin for next few days and resume ifno further bleeding noted. Patient denies feeling dizzy, shortness of breath, abdominal pain or chest pain. She is feeling better and would like to go home after dialysis. Condition Condition at Discharge: Stable Status at Discharge Functional status at discharge: independent ambulation Overall status at discharge: patient is back to baseline Time Spent with Patient Time spent providing/coordinating discharge services (# min): 36 Surgeries and Procedures Operation Date: 05/20/22 10:45 Actual Procedures p DH Colonoscopy Diagnostic(Not Applicable) - Wilmer Azevedo MD Diagnostic Studies Completed and Pending Studies Labs on day of discharge: 05/20/22 07:43: POC Glucose 155 05/20/22 04:19: PHA Creatinine Clear 11.02, Sodium 135 L, Potassium 3.7, Chloride 97 L, Carbon Dioxide 28.1, Anion Gap 13.6, BUN 38 H, Creatinine 3.81 H D, Est GFR (CKD-EPI) 11.801, Glucose 103 H, Calcium 9.4, Phosphorus 4.1, Albumin3.2 L 05/20/22 04:19: Corrected WBC 7.7, Uncorrected WBC Count 7.7, RBC 2.75 L, Hgb 8.3 L, Hct 25.5 L, MCV 92.7, MCH 30.4, MCHC 32.8, RDW 18.5 H, Plt Count 241, MPV7.5, Neut % (Auto) 67.3, Lymph % (Auto) 12.8, Mchenry % (Auto) 13.0, Eos % (Auto) 6.3, Baso % (Auto) 0.6, Nucleat RBC Rel Count 0.0, Neut # (Auto) 5.2, Lymph # (Auto) 1.0, Mchenry # (Auto) 1.0 H, Eos # (Auto) 0.5 H, Baso # (Auto) 0.0 05/19/22 20:53: POC Glucose 127, POC Glucose Comment Glu2: cleaned meter 05/19/22 15:38: POC Glucose 126 Exam Physical Exam Vital Signs: Temp Pulse Resp BP Pulse Ox O2 Del Method O2 Flow Rate 98.4 F 69 16 121/46 L 96 Nasal Cannula 6 05/20/22 11:25 05/20/22 12:31 05/20/22 11:25 05/20/22 12:31 05/20/22 11:25 05/20/22 11:25 05/20/22 10:57 Const Orientation: alert, awake and oriented x3 Resp Effort & Inspection: normal respiratory effort and able to speak in complete sentences Auscultation: no rales, no rhonchi and no wheezes Cardio Rate: regular rate Rhythm: regular rhythm Heart Sounds: S1 normal and S2 normal GI Palpation: soft, not firm, no guarding and nontender Neuro General: patient alert, patient awake, patient oriented x3, moves all extremities and no meningeal signs Discharge Plan Discharge Plan Patient Disposition: Home Health [facility] Diet: Diabetic and Renal Prescriptions: Continued multivitamin Tablet 1 tab PO DAILY dextrose [Glutose-15] 40 % Gel 0.6 g PO PRN PRN (Reason: Hypoglycemia) Qty: 112.5 0RF docusate sodium 100 mg Capsule 100 mg PO BID Qty: 60 0RF furosemide 40 mg Tablet 60 mg PO BID Qty: 60 3RF Rx Instructions: 1 TABLET PO DAILY insulin aspart U-100 [Novolog FlexPen U-100 Insulin] 100 unit/mL (3 mL) Insulin Pen 1 sliding scale dose subcut TID.WM.HS Qty: 15 0RF (DME) pen needle, diabetic [BD Ultra-Fine Lexis Pen Needle] 32 gauge x 5/32 needle Qty: 100 0RF Rx Instructions: As Directed - FSBS AC/HS calcium acetate(phosphat bind) 667 mg Capsule 667 mg PO TID.WITH.MEALS 60 Days Qty: 240 0RF hydrocodone-acetaminophen 7.5-325 mg tablet 1 tab PO Q6H PRN (Reason: Pain) 2 Days Qty: 8 0RF valsartan 160 mg tablet 160 mg PO DAILY isosorbide mononitrate 60 mg Tablet Extended Release 24 Hr 60 mg PO DAILY sennosides [senna] 8.6 mg tablet 8.6 mg PO BID Patient Comments: TAKE 1 TABLET BY MOUTH TWICE DAILY HOLD FOR LOOSE STOOLS carvedilol 12.5 mg tablet 12.5 mg PO BID pantoprazole 40 mg tablet,delayed release (DR/EC) 40 mg PO DAILY Patient Comments: TAKE 1 TABLET BY MOUTH EVERY DAY atorvastatin 40 mg tablet 40 mg PO QPM Patient Comments: Rx Instructions: 1 tablet PO daily citalopram 40 mg tablet 40 mg PO DAILY Anoro Ellipta 62.5-25 mcg/actuation blister with device 1 inh INHALATION DAILY Patient Comments: INHALE 1 PUFF ONCE A DAY cholecalciferol (vitamin D3) [Vitamin D3] 25 mcg (1,000 unit) Tablet 25 mcg PO DAILY albuterol sulfate 0.63 mg/3 mL Solution For Nebulization 0.63 mg inhalation QID PRN (Reason: SOB) Held aspirin 81 mg Tablet,Delayed Release (Dr/Ec) 81 mg PO DAILY Hold Instructions: resume in 2 days if no further bleeding noted. Documented By: Teresa Pagan MD 05/20/22 1301 Signed By: <Electronically signed by Teresa Pagan MD> 05/20/22 1307 [facility] Work Phone: [phone] 234-966904-10-2023 Progress note Author Geronimo Fofana [facility] May 20, 2022 12:55pm Note Date/Time May 20, 2022 12: 22pm [facility] [address] [place] [address] Nephrology Progress Note Signed Patient: Cinthya Wilson MR#: [id number] : 1945 Acct:[id number] Age/Sex: 77 / F Adm Date: 3 Loc: Room: [address] [place] [address] Type: ADM IN Attending Dr: Teresa Pagan MD Copies to: ~ Date of Service: 05/20/2022 Subjective Subjective Narrative: Mrs. 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 She gets dialysis at [facility] dialysis unit and she has a functioning left arm AV fistula. Patient presented to ER on 05/17 with rectal bleeding that was noticed after she done withdialysis and she went to bathroom. She experienced mild cramps and then noticedfairly sizable bloody bowel movement. She had another 2 bowel movements that were bloody as well one of them was in the ER. Patient denies any hematemesis. No nausea or vomiting. She has no previous GI problems. Last colonoscopy was more than 5 years ago and it was reported as unremarkable. Hemoglobin on admission was 11.7 that dropped down to 9.2 g/dL today. INR 1.2 with platelets of 254. All other labs were unremarkable since the patient just done with dialysis. Medication reviewed and she does not take blood thinner medications other than aspirin 81 mg daily. She does not use nonsteroidal anti-inflammatorydrugs. Since the patient has DM2 and atherosclerotic renovascular disease, concern about ischemic colitis was raised and the patient underwent CTA with contrast that showed: mild cardiomegaly with possible right heart failure, diffuse diverticulosis, diffuse atherosclerotic plaque with area of stenosis involving the aorta and iliac arteries. There is also plaque along the superioraspect of celiac artery with mild luminal narrowing. 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 There is a potential moderate to severe stenosis of the left renal artery as well. Patient was admitted for further evaluation. Nephrology was consulted for management of ESRD and dialysis during hospital stay. Interval history: Patient was seen and examined during hemodialysis session today. Colonoscopy today revealed diverticular bleeding which has stopped. Patient received 1 unit of RBCs yesterday with hemoglobin increased to 8.3 g deciliter. Patient denies any further GI bleed. Blood pressure stable with hemodialysis session today. Ultrafiltration is set at 0 as the patient is below her target weight Denies any chest pain. No abdominal pain. No nausea no vomiting. Exam Physical Exam Vital Signs: Temp Pulse Resp BP Pulse Ox O2 Del Method O2 Flow Rate 98.4 F 68 16 132/52 L 96 Nasal Cannula 6 05/20/22 11:05/20/22 12:02 05/20/22 11:05/20/22 12:02 05/20/22 11:05/20/22 11:05/20/22 10:57 Narrative: General: No acute distress Head :atraumatic normocephalic Eyes: PERRLA. Neck: no JVD no bruit. Heart: S1-S2. RRR Respiratory: Clear to auscultation. No wheezing. No crackles Abdomen: Soft, positive bowel sounds,no tenderness. Neurology: Awake alert oriented x3. No focal deficits Extremity. No cyanosis. No edema Skin: No skin rash Objective Intake and Output I&O: Intake & Output 05/17/22 05/18/22 05/19/22 05/20/22 23:59 23:59 23:59 23:59 Intake Total 1540 / 1540 1800 / 1800 1501 / 1501 Output Total 1848 / 1848 Balance -308 / -308 1800 / 1800 1501 / 1501 Weight 62.2 kg 62.8 kg 62 kg 62.4 kg Meds and Allergies Meds: Active Medications Hydrocodone Bitart/Acetaminophen (Hydrocodone/Acetaminophen 7.5-325mg Tablet) 1tab PO Q6H PRN PRN Reason: Pain Last Admin: 05/19/22 00:40 Dose: 1 tab Albuterol (Albuterol Neb 2.5 Mg/3 Ml Vial.Neb) 2.5 mg INHALATION QID PRN PRN Reason: Shortness Of Breath Stop: 05/17/23 16:41 Albuterol/Ipratropium (Ipratropium/Albuterol 0.5-3 Mg 3 Ml Ampul.Neb) 3 ml INHALATION QID.RESP YESSENIA Stop: 05/18/23 07:59 Last Admin: 05/20/22 08:23 Dose: 3 ml Atorvastatin Calcium (Atorvastatin 40 Mg Tablet) 40 mg PO QPM YESSENIA Stop: 05/17/23 20:59 Last Admin: 05/19/22 22:37 Dose: 40 mg Calcium Acetate (Calcium Acetate 667 Mg Capsule) 667 mg PO TID.WITH.MEALS YESSENIA Stop: 05/17/23 16:59 Last Admin: 05/20/22 11:10 Dose: Not Given Carvedilol (Carvedilol 12.5 Mg Tablet) 12.5 mg PO BID YESSENIA Stop: 05/17/23 20:59 Last Admin: 05/18/22 14:22 Dose: 12.5 mg Citalopram Hydrobromide (Citalopram 40 Mg Tablet) 40 mg PO DAILY YESSENIA Stop: 05/18/23 08:59 Last Admin: 05/20/22 08:16 Dose: 40 mg Darbepoetin Theodore (Darbepoetin Theodore In Polysorbat 60 Mcg/Ml Vial) 60 mcg IV-PUSHWe@0830 YESSENIA Stop: 05/22/23 08:29 Heparin Sodium (Porcine) (Heparin 10,000 Unit/10 Ml Vial) 2,000 unit IV PRN PRN PRN Reason: Dialysis Stop: 05/18/23 09:04 Last Admin: 05/18/22 11:36 Dose: 2,000 unit Sodium Chloride (0.9% Sodium Chloride 1,000 Ml) 1,000 mls @ 0 mls/hr MISCELLANE.Q0M PRN PRN Reason: Dialysis Stop: 05/18/23 09:04 Last Infusion: 05/20/22 12:05 Dose: Infused Sodium Chloride (0.9% Sodium Chloride 1,000 Ml) 1,000 mls @ 20 mls/hr IV .Q24H YESSENIA Stop: 05/20/23 05:59 Last Admin: 05/20/22 05:55 Dose: 20 mls/hr Sodium Chloride (0.9% Sodium Chloride 1,000 Ml) 1,000 mls @ 0 mls/hr MISCELLANE.Q0M PRN PRN Reason: Dialysis Stop: 05/20/23 08:26 Insulin Aspart (Insulin Aspart 300 Units/3 Ml Insuln.Pen) 0 units SUBCUT TID..[facility]; Protocol Stop: 05/17/23 21:59 Last Admin: 05/20/22 11:10 Dose: Not Given Pantoprazole Sodium (Pantoprazole 40 Mg Tablet.Dr) 40 mg PO DAILY [facility] Stop: 05/18/23 08:59 Last Admin: 05/20/22 08:16 Dose: 40 mg Sodium Chloride (Sodium Chloride 0.9 % 10 Ml Syringe) 0 ml IV-PUSH PRN PRN PRN Reason: Flush Stop: 05/17/23 13:00 Last Admin: 05/18/22 14:15 Dose: 10 ml Sodium Chloride (Sodium Chloride 0.9 % 10 Ml Syringe) 0 ml IV-PUSH PRN PRN PRN Reason: Flush Stop: 05/18/23 09:04 Last Admin: 05/18/22 11:36 Dose: 10 ml Sodium Chloride (Sodium Chloride 0.9 % 10 Ml Syringe) 0 ml IV-PUSH PRN PRN PRN Reason: Flush Stop: 05/20/23 08:26 Last Admin: 05/20/22 11:35 Dose: 10 ml Allergies lisinopril Allergy (Verified 05/17/22 13:03) Cough Results Labs 05/20/22 04:19 05/20/22 04:19 Labs: 05/20/22 04:19 BUN 38 H Creatinine 3.81 H D Phosphorus 4.1 Albumin 3.2 L Radiology Impressions Impressions - last 24 hours: Any impression(s) listed above is documentation that was entered by the reading physician into a diagnostic report(s) for Cinthya Wilson. I have reviewed the report(s) and am incorporating any findings in the treatment plan of this patient where applicable. A&P - Nephrology Assessment/Plan (1) ESRD (end stage renal disease): Assessment/Problem Details: Patient has ESRD related to DM 2 and atherosclerotic renovascular disease with recurrent CHF. Patient was started hemodialysis on 02/23/2022 with manifestations of uremia and volume overload. [facility] schedule (2) Bright red rectal bleeding: Plan: Patient presented with 2 bouts of bowel movement with bright red rectal bleeding. CT scan of the abdomen with contrast showed Blakes of atherosclerotic disease affecting mesenteric arteries however its not significant. Hemoglobin did drop down from 11.5 to 7.7 g/dL and she received 1 unit of RBCs May 19. Colonoscopy revealed diverticular bleeding which has stopped (3) Anemia: Assessment/Problem Details: Patient has anemia in the setting of advanced CKD. Hemoglobin did drop to 7.7 g/dL from 11.5 at admission . (4) Systolic and diastolic CHF, acute on chronic: Assessment/Problem Details: CHF is markedly improved after starting dialysis with ultrafiltration. CT scan of the abdomen still showing cardiomegaly with mild volume overload as well (5) Diabetes: Assessment/Problem Details: Patient has a history of diabetes with multiple diabetic complications Plan * Hemodialysis session today: Blood flow rate 350, dialysate rate 500, ultrafiltration none. * Continue Aranesp 60 mcg every Friday * Patient received 1 unit of RBCs on May 19 with appropriate response in hemoglobin up to 8.3 g deciliter .colonoscopy revealed diverticular bleeding which has stopped. * We will hold heparin with hemodialysis and use citrate for anticoagulation * Continue to monitor H&H and transfuse as needed * Monitor daily intake and output and renal panel. Next hemodialysis will be Friday as per the schedule Documented By: Geronimo Fofana MD 05/20/22 1217 Signed By: <Electronically signed by Geronimo Fofana MD> 05/20/22 6423 [facility] Work Phone: 1([phone]) 181-130404-10-2023 [facility] Procedure [facility]04-09-2023 Progress note Author Narinder Toussaint [facility] May 19, 2022 2:32pm Note Date/Time May 19, 2022 2:32 pm [facility] [address] [place] [address] Nephrology Progress Note Signed Patient: Cinthya Wilson MR#: [id number] : 1945 Acct:[id number] Age/Sex: 77 / F Adm Date: 3 Loc: Room: [address] [place] [address] Type: ADM IN Attending Dr: Jamal Schaefer MD Copies to: ~ Date of Service: 05/19/2022 Subjective Subjective Narrative: Mrs. 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 She gets dialysis at [facility] dialysis unit and she has a functioning left arm AV fistula. Patient presented to ER on 05/17 with rectal bleeding that was noticed after she done withdialysis and she went to bathroom. She experienced mild cramps and then noticedfairly sizable bloody bowel movement. She had another 2 bowel movements that were bloody as well one of them was in the ER. Patient denies any hematemesis. No nausea or vomiting. She has no previous GI problems. Last colonoscopy was more than 5 years ago and it was reported as unremarkable. Hemoglobin on admission was 11.7 that dropped down to 9.2 g/dL today. INR 1.2 with platelets of 254. All other labs were unremarkable since the patient just done with dialysis. Medication reviewed and she does not take blood thinner medications other than aspirin 81 mg daily. She does not use nonsteroidal anti-inflammatorydrugs. Since the patient has DM2 and atherosclerotic renovascular disease, concern about ischemic colitis was raised and the patient underwent CTA with contrast that showed: mild cardiomegaly with possible right heart failure, diffuse diverticulosis, diffuse atherosclerotic plaque with area of stenosis involving the aorta and iliac arteries. There is also plaque along the superioraspect of celiac artery with mild luminal narrowing. 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 There is a potential moderate to severe stenosis of the left renal artery as well. Patient was admitted for further evaluation. Nephrology was consulted for management of ESRD and dialysis during hospital stay. Interval history: Patient had hemodialysis yesterday for 3 hours after contrast exposure for CT that showed no significant findings per Patient had additional 1 bloody bowel movement today and hemoglobin did drop down to 7.7 g/dL. Patient stated that she feels tired with mild shortness of breath. Hemoglobin was 11.7 g/dL on admission, that is 4 g drop of hemoglobin. Blood pressure stable Patient is n.p.o. currently with bowel preparation for colonoscopy tomorrow Exam Physical Exam Vital Signs: Temp Pulse Resp BP Pulse Ox O2 Del Method O2 Flow Rate 36.7 C 59 L 14 128/46 L 100 Nasal Cannula 3 05/19/22 13:14 05/19/22 13:14 05/19/22 13:14 05/19/22 13:14 05/19/22 13:14 05/19/22 08:31 05/19/22 08:31 Narrative: Constitutional: Looks at her stated age, no respiratory distress. HEENT: She has mild pallor. Mucous membranes are moist. Cardiovascular: RRR, normal S1-S2, no gallop or rub, No JVD Respiratory: Diminished breath sounds with no crackles or wheezes Gastrointestinal: Soft, non tender, positive bowel sounds. No palpable organs or masses Extremities: 1+ edema Skin: No rashes or bruises Musculoskeletal: No joints swellings or inflammation Neurology: Awake, alert, oriented ?3, No focal motor or sensory deficits. Tremors and asterixis has markedly improved with dialysis Psych: Normal mood and affect Vascular access: Left arm AV fistula with good thrill. Objective Intake and Output I&O: Intake & Output 05/16/22 05/17/22 05/18/22 05/19/22 23:59 23:59 23:59 23:59 Intake Total 1540 / 1540 200 / 200 Output Total 1848 / 1848 Balance -308 / -308 200 / 200 Weight 62.2 kg 62.8 kg 62 kg Meds and Allergies Meds: Active Medications Hydrocodone Bitart/Acetaminophen (Hydrocodone/Acetaminophen 7.5-325mg Tablet) 1tab PO Q6H PRN PRN Reason: Pain Last Admin: 05/19/22 00:40 Dose: 1 tab Albuterol (Albuterol Neb 2.5 Mg/3 Ml Vial.Neb) 2.5 mg INHALATION QID PRN PRN Reason: Shortness Of Breath Stop: 05/17/23 16:41 Albuterol/Ipratropium (Ipratropium/Albuterol 0.5-3 Mg 3 Ml Ampul.Neb) 3 ml INHALATION QID.RESP YESSENIA Stop: 05/18/23 07:59 Last Admin: 05/19/22 12:05 Dose: 3 ml Atorvastatin Calcium (Atorvastatin 40 Mg Tablet) 40 mg PO QPM YESSENIA Stop: 05/17/23 20:59 Last Admin: 05/18/22 22:09 Dose: 40 mg Calcium Acetate (Calcium Acetate 667 Mg Capsule) 667 mg PO TID.WITH.MEALS YESSENIA Stop: 05/17/23 16:59 Last Admin: 05/19/22 12:17 Dose: 667 mg Carvedilol (Carvedilol 12.5 Mg Tablet) 12.5 mg PO BID YESSENIA Stop: 05/17/23 20:59 Last Admin: 05/18/22 14:22 Dose: 12.5 mg Citalopram Hydrobromide (Citalopram 40 Mg Tablet) 40 mg PO DAILY YESSENIA Stop: 05/18/23 08:59 Last Admin: 05/19/22 08:33 Dose: 40 mg Heparin Sodium (Porcine) (Heparin 10,000 Unit/10 Ml Vial) 2,000 unit IV PRN PRN PRN Reason: Dialysis Stop: 05/18/23 09:04 Last Admin: 05/18/22 11:36 Dose: 2,000 unit Sodium Chloride (0.9% Sodium Chloride 1,000 Ml) 1,000 mls @ 0 mls/hr MISCELLANE.Q0M PRN PRN Reason: Dialysis Stop: 05/18/23 09:04 Last Infusion: 05/18/22 11:35 Dose: Infused Sodium Chloride (0.9% Sodium Chloride 1,000 Ml) 1,000 mls @ 20 mls/hr IV .Q24H YESSENIA Stop: 05/20/23 05:59 Sodium Chloride (0.9 % Sodium Chloride) 500 mls @ 20 mls/hr IV PROTOCOL PRN PRN Reason: BLOOD TRANSFUSION Stop: 05/20/22 10:28 Insulin Aspart (Insulin Aspart 300 Units/3 Ml Insuln.Pen) 0 units SUBCUT TID.WM.HS [facility]; Protocol Stop: 05/17/23 21:59 Last Admin: 05/19/22 12:17 Dose: 1 units PEG/Electrolytes/Ascorbic Acid ([id number]/Electrolytes 2000 Ml Kit) 1,000 ml PO ONCE@0600 ONE Stop: 05/20/22 04:01 PEG/Electrolytes/Ascorbic Acid ([id number]/Electrolytes 2000 Ml Kit) 1,000 ml PO ONCE@1800 ONE Stop: 05/19/22 15:01 Pantoprazole Sodium (Pantoprazole 40 Mg Tablet.Dr) 40 mg PO DAILY [facility] Stop: 05/18/23 08:59 Last Admin: 05/19/22 08:33 Dose: 40 mg Sodium Chloride (Sodium Chloride 0.9 % 10 Ml Syringe) 0 ml IV-PUSH PRN PRN PRN Reason: Flush Stop: 05/17/23 13:00 Last Admin: 05/18/22 14:15 Dose: 10 ml Sodium Chloride (Sodium Chloride 0.9 % 10 Ml Syringe) 0 ml IV-PUSH PRN PRN PRN Reason: Flush Stop: 05/18/23 09:04 Last Admin: 05/18/22 11:36 Dose: 10 ml Allergies lisinopril Allergy (Verified 05/17/22 13:03) Cough Results Labs 05/19/22 04:30 05/19/22 04:30 Labs: 05/19/22 04:30 BUN 30 H Creatinine 2.90 H Radiology Impressions Impressions - last 24 hours: Any impression(s) listed above is documentation that was entered by the reading physician into a diagnostic report(s) for Cinthya Wilson. I have reviewed the report(s) and am incorporating any findings in the treatment plan of this patient where applicable. A&P - Nephrology Assessment/Plan (1) ESRD (end stage renal disease): Assessment/Problem Details: Patient has ESRD related to DM 2 and atherosclerotic renovascular disease with recurrent CHF. Patient was started hemodialysis on 02/23/2022 with manifestations of uremia and volume overload. She is currently gets dialysis [facility] dialysis unit on MWF schedule (2) Bright red rectal bleeding: Plan: Patient presented with 2 bouts of bowel movement with bright red rectal bleeding. CT scan of the abdomen with contrast showed Blakes of atheroscleroticdisease affecting mesenteric arteries however its not significant. Hemoglobin did drop down from 11.5 to 9.2 g/dL since admission. (3) Anemia: Assessment/Problem Details: Patient has anemia in the setting of advanced CKD. Hemoglobin did drop to 9.2 g/dL from 11.5 yesterday after 2-3 bowel movements with bloody stool. CTA was significant mainly of diverticulosis. (4) Systolic and diastolic CHF, acute on chronic: Assessment/Problem Details: CHF is markedly improved after starting dialysis with ultrafiltration. CT scan of the abdomen still showing cardiomegaly with mild volume overload as well (5) Diabetes: Assessment/Problem Details: Patient has a history of diabetes with multiple diabetic complications Plan * Hemoglobin is dropped significantly by 4g over 48-hour down to 7.7 g/dL with generalized weakness. We will transfuse 1 unit of packed RBCs today and because sometimes additional 1 unit in case hemoglobin drops further. Patient still has ongoing GI bleeding. * Hemodialysis tomorrow, will hold heparin and will use Citrosate till she has no further GI bleed * She will continue clear liquid diet today and colon prep for colonoscopy tomorrow * Monitor daily intake and output and renal panel. Next hemodialysis will be Friday per her schedule Documented By: Narinder Toussaint MD 05/19/22 1429 Signed By: <Electronically signed by MD Narinder Toussaint> 05/19/22 1432 [facility] Work Phone: [phone]) [phone] Progress note Author Jamal Schaefer [facility] May 19, 2022 1:38pm Note Date/Time May 19, 2022 1:38 pm [facility] [address] [place] [address] Hospitalist Progress Note Signed Patient: Cinthya Wilson MR#: [id number] : 1945 Acct:[id number] Age/Sex: 77 / F Adm Date: 3 Loc: 4 Room: [address] [place] [address] Type: ADM IN Attending Dr: Jamal Schaefer MD Copies to: ~ Date of Service: 05/19/2022 Subjective Subjective Narrative: Patient is resting in bed. She had 1 bloody bowel movement this morning. Otherwise no complaints. Tolerating clear liquid diet well. Abdomen is soft and benign Heart is regular Lungs are clear Abdomen is soft benign Neurological nonfocal Assessment and plan 1. GI bleed, likely secondary to diverticulosis, with anemia of acute GI blood loss. Continue to monitor CBC. Plan for colonoscopy tomorrow. Remains on full liquids. Imaging studies shows atherosclerosis in the abdominal vessels, but nothing critical requiring immediate intervention. 2. End-stage renal disease on hemodialysis. Dialysis per nephrology #3 some hypotension and transient neurological symptoms yesterday in the settingpostdialysis. Resolved. DVT prophylaxis SCDs Chronic Medical Conditions End-stage renal disease on hemodialysis CAD status post PTCA and stent HFmrEF Hypertension COPD GERD Diabetes mellitus type 2 Exam Physical Exam Vital Signs: Temp Pulse Resp BP Pulse Ox O2 Del Method O2 Flow Rate 97.9 F 53 L 14 102/47 L 100 Nasal Cannula 3 05/19/22 13:11 05/19/22 13:11 05/19/22 13:11 05/19/22 13:11 05/19/22 13:11 05/19/22 08:31 05/19/22 08:31 Objective Lab Results 05/19/22 04:30 05/19/22 04:30 Meds Allergies and Active Meds Allergies lisinopril Allergy (Verified 05/17/22 13:03) Cough Active Meds: Active Medications Generic Name Dose Route Start Last Admin Trade Name Freq PRN Reason Stop Dose Admin Hydrocodone Bitart/Acetaminophen 1 tab 05/17/22 16:42 05/19/22 00:40 Hydrocodone/Acetaminophen 7.5-325mg Tablet PO 1 tab Q6H PRN Administration Pain Albuterol 2.5 mg 05/17/22 16:42 Albuterol Neb 2.5 Mg/3 Ml Vial.Neb INHALATION 05/17/23 16:41 QID PRN Shortness Of Breath Albuterol/Ipratropium 3 ml 05/18/22 08:00 05/19/22 12:05 Ipratropium/Albuterol 0.5-3 Mg 3 Ml Ampul.Neb INHALATION 05/18/23 07:59 3 ml QID.RESP YESSENIA Administration Atorvastatin Calcium 40 mg 05/17/22 21:00 05/18/22 22:09 Atorvastatin 40 Mg Tablet PO 05/17/23 20:59 40 mg QPM YESSENIA Administration Bisacodyl 20 mg 05/19/22 14:00 Bisacodyl 5 Mg Tablet.Dr PO 05/19/22 14:01 ONCE ONE Calcium Acetate 667 mg 05/17/22 17:00 05/19/22 12:17 Calcium Acetate 667 Mg Capsule PO 05/17/23 16:59 667 mg TID.WITH.MEALS YESSENIA Administration Carvedilol 12.5 mg 05/17/22 21:00 05/18/22 14:22 Carvedilol 12.5 Mg Tablet PO 05/17/23 20:59 12.5 mg BID YESSENIA Administration Citalopram Hydrobromide 40 mg 05/18/22 09:00 05/19/22 08:33 Citalopram 40 Mg Tablet PO 05/18/23 08:59 40 mg DAILY YESSENIA Administration Heparin Sodium (Porcine) 2,000 unit 05/18/22 09:05 05/18/22 11:36 Heparin 10,000 Unit/10 Ml Vial IV 05/18/23 09:04 2,000 unit PRN PRN Administration Dialysis Sodium Chloride 1,000 mls @ 0 mls/hr 05/18/22 09:05 05/18/22 11:35 0.9% Sodium Chloride 1,000 Ml MISCELLANE 05/18/23 09:04 Infused .Q0M PRN Infusion Dialysis As Directed Sodium Chloride 1,000 mls @ 20 mls/hr 05/20/22 06:00 0.9% Sodium Chloride 1,000 Ml IV 05/20/23 05:59 .Q24H YESSENIA Sodium Chloride 500 mls @ 20 mls/hr 05/19/22 10:29 0.9 % Sodium Chloride IV 05/20/22 10:28 PROTOCOL PRN BLOOD TRANSFUSION Insulin Aspart 0 units 05/17/22 22:00 05/19/22 12:17 Insulin Aspart 300 Units/3 Ml Insuln.Pen SUBCUT 05/17/23 21:59 1 units TID.WM.HS YESSENIA Administration Protocol PEG/Electrolytes/Ascorbic Acid 1,000 ml 05/20/22 04:00 [id number]/Electrolytes 2000 Ml Kit PO 05/20/22 04:01 ONCE@0600 ONE PEG/Electrolytes/Ascorbic Acid 1,000 ml 05/19/22 15:00 [id number]/Electrolytes 2000 Ml Kit PO 05/19/22 15:01 ONCE@1800 ONE Pantoprazole Sodium 40 mg 05/18/22 09:00 05/19/22 08:33 Pantoprazole 40 Mg Tablet. PO 05/18/23 08:59 40 mg DAILY YESSENIA Administration Sodium Chloride 0 ml 05/17/22 13:01 05/18/22 14:15 Sodium Chloride 0.9 % 10 Ml Syringe IV-PUSH 05/17/23 13:00 10 ml PRN PRN Administration Flush Sodium Chloride 0 ml 05/18/22 09:05 05/18/22 11:36 Sodium Chloride 0.9 % 10 Ml Syringe IV-PUSH 05/18/23 09:04 10 ml PRN PRN Administration Flush Documented By: Jamal Schaefer MD 05/19/221336 Signed By: <Electronically signed by Jamal Schaefer MD> 05/19/221337 [facility] Work Phone: [phone]) 687-948204-08-2023 Progress note Author Jamal Schaefer [facility] May 18, 2022 2:18pm Note Date/Time May 18, 2022 11:2 2am [facility] [address] [place] [address] Hospitalist Progress Note Signed Patient: Cinthya Wilson MR#: [id number] : 1945 Acct:[id number] Age/Sex: 77 / F Adm Date: 3 Loc: Room: [address] [place] [address] Type: ADM IN Attending Dr: Jamal Schaefer MD Copies to: ~ Date of Service: 05/18/2022 Subjective Subjective Narrative: Attending note: I saw the patient personally on the day of encounter. I reviewed the relevant history, and performed the chow elements of the physical examination. I reviewedthe relevant laboratory workup, radiological studies and the current treatment plan. I formulated the plan of care and confirmed it with the resident/student/FACT CHECKER. The patient is a 77 year old female with abdominal pain and hematochezia with a PMH of ESRD on hemodialysis, HTN, COPD, and DMII. The patient was seen and examined at bedside. She states that her abdominal painand hematochezia continued throughout yesterday evening but has since resolved. She underwent CT with contrast yesterday and was scheduled for dialysis later today. She states that she is a little light headed when she gets up to go to the bathroom but is otherwise feeling much better. She denies abdominal pain, N/V, fevers/chills, chest pain, head ache, changes in vision, or changes in mental status. Physical Exam General:Well appearing and in no acute distress CV:Bradycardic with regular rhythm Respiratory:CTA b/l with no wheezes, rhonchi, or rales GI: non distended, tenderness noted in lower abdomen primarily in the RLQ with some voluntary guarding. Integumentary:no rashes or lesions noted *Hematochezia with Cramping * Resolved as of this AM * Hg decreased from 11.7 (05/17) to 9.2. Patient is largely asymptomatic and a CBC ordered for the AM * CT scan demonstrated diverticulosis, fluid around distal colon without bowel wall thickening, and approximately 50% stenos of SMA * GI consult ordered. Recommendations appreciated *ESRD * Creatinine increased from 2.33 (05/17) to 3.33 post contrast administration. Hemodialysis planned for today and BMP order for the AM DVT prophylaxis SCDs Chronic Medical Conditions End-stage renal disease on hemodialysis CAD status post PTCA and stent HFmrEF Hypertension COPD GERD Diabetes mellitus type 2 Exam Physical Exam Vital Signs: Temp Pulse Resp BP Pulse Ox O2 Del Method O2 Flow Rate 97.0 F L 50 L 16 119/50 L 99 Nasal Cannula 3 05/18/22 08:02 05/18/22 09:01 05/18/22 09:01 05/18/22 08:02 05/18/22 08:02 05/18/22 08:02 05/18/22 08:02 Objective Lab Results 05/18/22 04:56 05/18/22 04:56 Microbiology Results Microbiology 05/17/22 13:18 Stool Stool Occult Blood (TRINITY) - Final Meds Allergies and Active Meds Allergies lisinopril Allergy (Verified 05/17/22 13:03) Cough Active Meds: Active Medications Generic Name Dose Route Start Last Admin Trade Name Freq PRN Reason Stop Dose Admin Hydrocodone Bitart/Acetaminophen 1 tab 05/17/22 16:42 Hydrocodone/Acetaminophen 7.5-325mg Tablet PO Q6H PRN Pain Albuterol 2.5 mg 05/17/22 16:42 Albuterol Neb 2.5 Mg/3 Ml Vial.Neb INHALATION 05/17/23 16:41 QID PRN Shortness Of Breath Albuterol/Ipratropium 3 ml 05/18/22 08:00 05/18/22 08:50 Ipratropium/Albuterol 0.5-3 Mg 3 Ml Ampul.Neb INHALATION 05/18/23 07:59 3 ml QID.RESP YESSENIA Administration Atorvastatin Calcium 40 mg 05/17/22 21:00 05/17/22 21:50 Atorvastatin 40 Mg Tablet PO 05/17/23 20:59 40 mg QPM YESSENIA Administration Calcium Acetate 667 mg 05/17/22 17:00 05/18/22 09:29 Calcium Acetate 667 Mg Capsule PO 05/17/23 16:59 667 mg TID.WITH.MEALS YESSENIA Administration Carvedilol 12.5 mg 05/17/22 21:00 05/17/22 21:50 Carvedilol 12.5 Mg Tablet PO 05/17/23 20:59 12.5 mg BID YESSENIA Administration Citalopram Hydrobromide 40 mg 05/18/22 09:00 Citalopram 40 Mg Tablet PO 05/18/23 08:59 DAILY YESSENIA Heparin Sodium (Porcine) 2,000 unit 05/18/22 09:05 Heparin 10,000 Unit/10 Ml Vial IV 05/18/23 09:04 PRN PRN Dialysis Sodium Chloride 1,000 mls @ 0 mls/hr 05/18/22 09:05 0.9% Sodium Chloride 1,000 Ml MISCELLANE 05/18/23 09:04 .Q0M PRN Dialysis As Directed Insulin Aspart 0 units 05/17/22 22:00 05/18/22 09:33 Insulin Aspart 300 Units/3 Ml Insuln.Pen SUBCUT 05/17/23 21:59 1 units TID.WM.HS YESSENIA Administration Protocol Isosorbide Mononitrate 60 mg 05/18/22 09:00 Isosorbide Mononitrate 24hr Er 60 Mg Tab.Er.24h PO 05/18/23 08:59 DAILY YESSENIA Pantoprazole Sodium 40 mg 05/18/22 09:00 Pantoprazole 40 Mg Tablet.Dr PO 05/18/23 08:59 DAILY YESSENIA Sodium Chloride 0 ml 05/17/22 13:01 05/17/22 17:27 Sodium Chloride 0.9 % 10 Ml Syringe IV-PUSH 05/17/23 13:00 10 ml PRN PRN Administration Flush Sodium Chloride 0 ml 05/18/22 09:05 Sodium Chloride 0.9 % 10 Ml Syringe IV-PUSH 05/18/23 09:04 PRN PRN Flush Documented By: Jamal Schaefer MD 05/18/22 1110 Signed By: <Electronically signed by Jamal Schaefer MD> 05/18/22 1418 [facility] Work Phone: [phone] Consult note Author Narinder Toussaint [facility] May 18, 2022 12:58pm Note Date/Time May 18, 2022 12:5 8pm [facility] [address] [place] [address] Nephrology Consult Note Signed Patient: Cinthya Wilson MR#: [id number] : 1945 Acct:[id number] Age/Sex: 77 / F Adm Date: 3 Loc: 4N Room: 4A5150-7 Type: ADM IN Attending Dr: Jamal Schaefer MD Copies to: MD Lily Garrett II, MD Essam B Elashi, MD~ Providers Consult Date: 05/18/22 Requesting Provider: Jamal Schaefer MD Primary Care Provider: Lily Aldrich II, MD [facility] Reason for Consult: Management of ESRD and dialysis during hospital stay History of Present Illness: Mrs. 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 She gets dialysis at [facility] dialysis unit and she has a functioning left arm AV fistula. Patient presented to ER on 05/17 with rectal bleeding that was noticed after she done withdialysis and she went to bathroom. She experienced mild cramps and then noticedfairly sizable bloody bowel movement. She had another 2 bowel movements that were bloody as well one of them was in the ER. Patient denies any hematemesis. No nausea or vomiting. She has no previous GI problems. Last colonoscopy was more than 5 years ago and it was reported as unremarkable. Hemoglobin on admission was 11.7 that dropped down to 9.2 g/dL today. INR 1.2 with platelets of 254. All other labs were unremarkable since the patient just done with dialysis. Medication reviewed and she does not take blood thinner medications other than aspirin 81 mg daily. She does not use nonsteroidal anti-inflammatorydrugs. Since the patient has DM2 and atherosclerotic renovascular disease, concern about ischemic colitis was raised and the patient underwent CTA with contrast that showed: mild cardiomegaly with possible right heart failure, diffuse diverticulosis, diffuse atherosclerotic plaque with area of stenosis involving the aorta and iliac arteries. There is also plaque along the superioraspect of celiac artery with mild luminal narrowing. 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 There is a potential moderate to severe stenosis of the left renal artery as well. Patient was admitted for further evaluation. Nephrology was consulted for management of ESRD and dialysis during hospital stay. Patient was seen and examined in her room. She feels better today. She is on clear liquid diet that tolerated well. She was started empirically on PPI as well. Patient is breathing comfortably. Blood pressure 110/61. She is almost at her dry weight. She has shortness of breath that is no different from baseline Review of Systems Review of Systems Review of systems: General: denies any weakness, weight loss Cardiovascular: denies any chest pain, palpitation Pulmonary: Complaining of shortness of breath no different from baseline. Denies any cough, hemoptysis Gastrointestinal: She has occasional abdominal cramps. She had 2 bloody bowel movements but the last one was clean. Genitourinary: denies any urinary urgency, hematuria, dysuria Neurological :denies any headache, numbness, weakness Endocrine: denies polyuria, polydipsia Musculoskeletal: denies joint pain, muscle ache Dermatological: denies itching or rash Review of all other systems were reviewed in detail and negative PMFSH Vaccinated for COVID-19?: Yes Medical History Anemia Anxiety Anxiety and depression Arthritis CAD (coronary artery disease) Cataract had bilateral PHACO Cervical spinal stenosis CHF (congestive heart failure) Chronic back pain Chronic kidney disease COPD (chronic obstructive pulmonary disease) Diabetes GERD (gastroesophageal reflux disease) HTN (hypertension) Hyperlipidemia Insomnia Irregular heart rhythm prior to stent placement per pt report Lumbosacral spondylolysis LVH (left ventricular hypertrophy) Neck pain with history of cervical spinal surgery Neuropathy right thigh and feet Pneumonia Polymyalgia Skin cancer mohs procedure for removal Sleep apnea Surgical History H/O heart artery stent History of appendectomy History of back surgery lumbar History of x2 History of carpal tunnel release bilateral History of coronary angioplasty with insertion of stent History of D&C History of shoulder surgery rt shoulder History of tonsillectomy History of total abdominal hysterectomy and bilateral salpingo-oophorectomy Family History Father Heart disease Cancer Mother Cancer Diabetes Social History Smoking Status: Never smoker Substance Use Type: None Social History Comments: adult son Meds Medications & Allergies Allergies lisinopril Allergy (Verified 05/17/22 13:03) Cough Home Medications atorvastatin 40 mg tablet 40 mg PO QPM 11/19/16 [History Confirmed 05/17/22] multivitamin 1 tab PO DAILY 09/07/19 [History Confirmed 05/17/22] aspirin 81 mg tablet,delayed release 81 mg PO DAILY 11/25/19 [History Confirmed 05/17/22] cholecalciferol (vitamin D3) 25 mcg (1,000 unit) tablet (Vitamin D3) 25 mcg PO DAILY 11/25/19 [History Confirmed 05/17/22] citalopram 40 mg tablet 40 mg PO DAILY 11/25/19 [History Confirmed 05/17/22] umeclidinium 62.5 mcg-vilanterol 25 mcg/actuation powdr for inhalation (Anoro Ellipta) 1 inh inhalation DAILY 11/25/19 [History Confirmed 05/17/22] albuterol sulfate 0.63 mg/3 mL solution for nebulization 0.63 mg inhalation QID PRN SOB 06/26/21 [History Confirmed 05/17/22] dextrose 40 % oral gel (Glutose-15) 0.6 g PO PRN PRN Hypoglycemia #112.5 grams 11/20/21 [Rx Confirmed 05/17/22] docusate sodium 100 mg capsule 100 mg PO BID #60 caps 11/20/21 [Rx Confirmed 05/17/22] furosemide 40 mg tablet 60 mg PO BID #60 tabs 11/20/21 [Rx Confirmed 05/17/22] insulin aspart U-100 100 unit/mL (3 mL) subcutaneous pen (Novolog FlexPen U-100 Insulin aspart) 1 sliding scale dose subcut TID.WM.HS #15 mL 11/20/21 [Rx Confirmed 05/17/22] pen needle, diabetic 32 gauge x 5/32 (BD Ultra-Fine Lexis Pen Needle) #100 ea 11/20/21 [Rx Confirmed 02/22/22] calcium acetate(phosphat bind) 667 mg capsule 667 mg PO TID.WITH.MEALS 60 days #240 caps 02/26/22 [Rx Confirmed 05/17/22] hydrocodone 7.5 mg-acetaminophen 325 mg tablet 1 tab PO Q6H PRN Pain 2 days #8 tabs 02/26/22 [Rx Confirmed 05/17/22] isosorbide mononitrate 60 mg tablet,extended release 24 hr 60 mg PO DAILY 05/02/22 [History Confirmed 05/17/22] valsartan 160 mg tablet 160 mg PO DAILY 05/02/22 [History Confirmed 05/17/22] carvedilol 12.5 mg tablet 12.5 mg PO BID 05/17/22 [History Confirmed 05/17/22] pantoprazole 40 mg tablet,delayed release 40 mg PO DAILY 05/17/22 [History Confirmed 05/17/22] sennosides 8.6 mg tablet (senna) 8.6 mg PO BID 05/17/22 [History Confirmed 05/17/22] Active Medications: Active Medications Hydrocodone Bitart/Acetaminophen (Hydrocodone/Acetaminophen 7.5-325mg Tablet) 1tab PO Q6H PRN PRN Reason: Pain Albuterol (Albuterol Neb 2.5 Mg/3 Ml Vial.Neb) 2.5 mg INHALATION QID PRN PRN Reason: Shortness Of Breath Stop: 05/17/23 16:41 Albuterol/Ipratropium (Ipratropium/Albuterol 0.5-3 Mg 3 Ml Ampul.Neb) 3 ml INHALATION QID.RESP YESSENIA Stop: 05/18/23 07:59 Last Admin: 05/18/22 08:50 Dose: 3 ml Atorvastatin Calcium (Atorvastatin 40 Mg Tablet) 40 mg PO QPM [facility] Stop: 05/17/23 20:59 Last Admin: 05/17/22 21:50 Dose: 40 mg Bisacodyl (Bisacodyl 5 Mg Tablet.Dr) 20 mg PO ONCE ONE Stop: 05/19/22 14:01 Calcium Acetate (Calcium Acetate 667 Mg Capsule) 667 mg PO TID.WITH.MEALS [facility] Stop: 05/17/23 16:59 Last Admin: 05/18/22 09:29 Dose: 667 mg Carvedilol (Carvedilol 12.5 Mg Tablet) 12.5 mg PO BID [facility] Stop: 05/17/23 20:59 Last Admin: 05/17/22 21:50 Dose: 12.5 mg Citalopram Hydrobromide (Citalopram 40 Mg Tablet) 40 mg PO DAILY [facility] Stop: 05/18/23 08:59 Heparin Sodium (Porcine) (Heparin 10,000 Unit/10 Ml Vial) 2,000 unit IV PRN PRN PRN Reason: Dialysis Stop: 05/18/23 09:04 Last Admin: 05/18/22 11:36 Dose: 2,000 unit Sodium Chloride (0.9% Sodium Chloride 1,000 Ml) 1,000 mls @ 0 mls/hr MISCELLANE.Q0M PRN PRN Reason: Dialysis Stop: 05/18/23 09:04 Last Infusion: 05/18/22 11:35 Dose: Infused Sodium Chloride (0.9% Sodium Chloride 1,000 Ml) 1,000 mls @ 20 mls/hr IV .Q24H [facility] Stop: 05/19/23 05:59 Insulin Aspart (Insulin Aspart 300 Units/3 Ml Insuln.Pen) 0 units SUBCUT TID.WM.[facility]; Protocol Stop: 05/17/23 21:59 Last Admin: 05/18/22 09:33 Dose: 1 units Isosorbide Mononitrate (Isosorbide Mononitrate 24hr Er 60 Mg Tab.Er.24h) 60 mg PO DAILY [facility] Stop: 05/18/23 08:59 PEG/Electrolytes/Ascorbic Acid ([id number]/Electrolytes 2000 Ml Kit) 1,000 ml PO ONCE@0600 ONE Stop: 05/20/22 04:01 PEG/Electrolytes/Ascorbic Acid ([id number]/Electrolytes 2000 Ml Kit) 1,000 ml PO ONCE@1800 ONE Stop: 05/19/22 15:01 Pantoprazole Sodium (Pantoprazole 40 Mg Tablet.Dr) 40 mg PO DAILY [facility] Stop: 05/18/23 08:59 Simethicone (Simethicone 80 Mg Tab.Chew) 160 mg PO ONCE ONE Stop: 05/19/22 04:01 Sodium Chloride (Sodium Chloride 0.9 % 10 Ml Syringe) 0 ml IV-PUSH PRN PRN PRN Reason: Flush Stop: 05/17/23 13:00 Last Admin: 05/17/22 17:27 Dose: 10 ml Sodium Chloride (Sodium Chloride 0.9 % 10 Ml Syringe) 0 ml IV-PUSH PRN PRN PRN Reason: Flush Stop: 05/18/23 09:04 Last Admin: 05/18/22 11:36 Dose: 10 ml Exam Physical Exam Vital Signs: Temp Pulse Resp BP Pulse Ox O2 Del Method O2 Flow Rate 36.0 C L 50 L 20 108/61 100 Nasal Cannula 2 05/18/22 10:20 05/18/22 12:00 05/18/22 10:20 05/18/22 12:00 05/18/22 10:20 05/18/22 10:20 05/18/22 10:20 Narrative: Constitutional: Looks at her stated age, no respiratory distress. HEENT: She has mild pallor. Mucous membranes are moist. Cardiovascular: RRR, normal S1-S2, no gallop or rub, No JVD Respiratory: Diminished breath sounds with no crackles or wheezes Gastrointestinal: Soft, non tender, positive bowel sounds. No palpable organs or masses Extremities: 1+ edema Skin: No rashes or bruises Musculoskeletal: No joints swellings or inflammation Neurology: Awake, alert, oriented ?3, No focal motor or sensory deficits. Tremors and asterixis has markedly improved with dialysis Psych: Normal mood and affect Vascular access: Left arm AV fistula with good thrill. Results Labs 05/18/22 04:56 05/18/22 04:56 Labs: 05/17/22 05/18/22 13:38 04:56 BUN 23 35 H Creatinine 2.33 H 3.33 H D Albumin 3.7 Radiology Impressions Impressions - last 24 hours: Impressions Abdomen/Pelvis CTA 05/17/22 16:41 IMPRESSION: MILD CARDIOMEGALY AND POSSIBLE RIGHT HEART FAILURE. RIGHT BASILAR PLEURAL-PARENCHYMAL CHANGE. ATHEROSCLEROTIC DISEASE, WITHOUT AORTIC ANEURYSM OR DISSECTION. VISCERAL ATHEROSCLEROTIC PLAQUE WITH AREAS OF STENOSIS DESCRIBED, GREATEST ATTHE PROXIMAL LEFT RENAL ARTERY. NO BOWEL OR URINARY TRACT OBSTRUCTION. PROBABLE SMALL RENAL CYSTS. DIVERTICULOSIS. FLUID AT THE DISTAL COLON, WITHOUT WALL THICKENING. Impression dictated by: Dianna Pedro M.D.05/17/2022 5:34 PM Dictation Location: [place] [address] Any impression(s) listed above is documentation that was entered by the reading physician into a diagnostic report(s) for Cinthya Wilson. I have reviewed the report(s) and am incorporating any findings in the treatment plan of this patient where applicable. A&P - Nephrology Assessment/Plan (1) ESRD (end stage renal disease): Assessment/Problem Details: Patient has ESRD related to DM 2 and atherosclerotic renovascular disease with recurrent CHF. Patient was started hemodialysis on 02/23/2022 with manifestationsof uremia and volume overload. She is currently gets dialysis at [facility] dialysis unit on MWF schedule (2) Bright red rectal bleeding: Plan: Patient presented with 2 bouts of bowel movement with bright red rectal bleeding. CT scan of the abdomen with contrast showed Blakes of atheroscleroticdisease affecting mesenteric arteries however its not significant. Hemoglobin did drop down from 11.5 to 9.2 g/dL since admission. (3) Anemia: Assessment/Problem Details: Patient has anemia in the setting of advanced CKD. Hemoglobin did drop to 9.2 g/dL from 11.5 yesterday after 2-3 bowel movements with bloody stool. CTA was significant mainly of diverticulosis. (4) Systolic and diastolic CHF, acute on chronic: Assessment/Problem Details: CHF is markedly improved after starting dialysis with ultrafiltration. CT scan of the abdomen still showing cardiomegaly with mild volume overload as well (5) Diabetes: Assessment/Problem Details: Patient has a history of diabetes with multiple diabetic complications Plan * Patient had full hemodialysis yesterday however she did receive contrast yes terday and CTA showed evidence of cardiomegaly and fluid overload. Will provide additional 3 hours dialysis today with 2 L ultrafiltration as tolerated mainly for fluid overload and avoid contrast osmolar overload. * Patient was evaluated by GI. Her clinical history and presentation is consistent with diverticular bleeding. Patient has no more bleeding at this point. Patient last colonoscopy was more than 5 years ago so another colonoscopy is planned for Friday. * She will continue clear liquid diet today and tomorrow for colon prep * Monitor daily intake and output and renal panel. Next hemodialysis will be Friday per her schedule I appreciate this consultation we will be happy to follow the patient with you during her hospital stay Documented By: Narinder Toussiant MD 05/18/22 1238 Signed By: <Electronically signed by MD Narinder Toussaint> 05/18/22 5433 [facility] Work Phone: [phone]) [phone] Consult note Author Wilmer Azevedo [facility] May 18, 2022 12:07pm Note Date/Time May 18, 2022 12:0 7pm [facility] [address] [place] [address] Gastroenterology Consult Note Signed Patient: Cinthya Wilson MR#: [id number] : 1945 Acct:[id number] Age/Sex: 77 / F Adm Date: 3 Loc: N Room: 1P2511-5 Type: ADM IN Attending Dr: Jamal Schaefer MD Copies to: MD Wilmer Garrett MD Daniel Berry II, MD~ HPI Data of Consult Date of Consultation: 05/18/22 Requesting Physician: Jamal Schaefer MD Consult Narrative History of present illness: Ms. Wilson is a 77 year old female with a past medical history significant for ESRD on IHD, cardiomyopathy, COPD, diabetes who was admitted with hematochezia, who I am consulted for hematochezia. The patient states that yesterday she feltsome abrupt cramping like she needed to have a bowel movement and some urgency. She sat down and went to the bathroom and notes that she had some formed stool and then bleeding with blood dripping into the toilet water and this prompted her visit to the ER. She denies prior history of GI bleeding. She denies any ongoing abdominal pain. She has been hemodynamically stable. She denies NSAID use. She states that her last colonoscopy was 4 to 5 years ago at [facility] and she thinks that was normal, she does not remember being told if she had diverticulosis. A CTA was performed on admission which demonstrates fluid and stool in the left colon. Solid stool in the right colon. Diffuse diverticulosis of the left colon. cc:: CC: Jamal Schaefer MD Review of Systems Constitutional Constitutional: Denies poor appetite and Denies weight loss Eyes Eyes: Denies change in vision and Denies eye discharge ENT Ears, Nose, Mouth, and Throat: Denies nasal discharge, Denies sore throat and Denies vertigo Cardiovascular Cardiovascular: Denies chest pain and Denies dyspnea on exertion Respiratory Respiratory: Denies chest congestion, Denies cough and Denies dyspnea on exertion Gastrointestinal Gastrointestinal: Reports as per HPI Musculoskeletal Musculoskeletal: Denies arthralgias, Denies muscle weakness and Denies numbness Integumentary/Breasts Skin/Breast: Denies change in pigmentation and Denies rash Neurologic Neurologic: Denies numbness and Denies vertigo Psychiatric Psychiatric: Denies anxiety and Denies depression Hematologic/Lymphatic Hematologic/Lymphatic: Denies easy bruising and Denies lymphadenopathy PMFSH Vaccinated for COVID-19?: Yes Medical History Anemia Anxiety Anxiety and depression Arthritis CAD (coronary artery disease) Cataract had bilateral PHACO Cervical spinal stenosis CHF (congestive heart failure) Chronic back pain Chronic kidney disease COPD (chronic obstructive pulmonary disease) Diabetes GERD (gastroesophageal reflux disease) HTN (hypertension) Hyperlipidemia Insomnia Irregular heart rhythm prior to stent placement per pt report Lumbosacral spondylolysis LVH (left ventricular hypertrophy) Neck pain with history of cervical spinal surgery Neuropathy right thigh and feet Pneumonia Polymyalgia Skin cancer mohs procedure for removal Sleep apnea Surgical History H/O heart artery stent History of appendectomy History of back surgery lumbar History of x2 History of carpal tunnel release bilateral History of coronary angioplasty with insertion of stent History of D&C History of shoulder surgery rt shoulder History of tonsillectomy History of total abdominal hysterectomy and bilateral salpingo-oophorectomy Family History Father Heart disease Cancer Mother Cancer Diabetes Social History Smoking Status: Never smoker Substance Use Type: None Social History Comments: adult son Meds Medications and Allergies Allergies lisinopril Allergy (Verified 05/17/22 13:03) Cough Home Medications atorvastatin 40 mg tablet 40 mg PO QPM 11/19/16 [History Confirmed 05/17/22] multivitamin 1 tab PO DAILY 09/07/19 [History Confirmed 05/17/22] aspirin 81 mg tablet,delayed release 81 mg PO DAILY 11/25/19 [History Confirmed 05/17/22] cholecalciferol (vitamin D3) 25 mcg (1,000 unit) tablet (Vitamin D3) 25 mcg PO DAILY 11/25/19 [History Confirmed 05/17/22] citalopram 40 mg tablet 40 mg PO DAILY 11/25/19 [History Confirmed 05/17/22] umeclidinium 62.5 mcg-vilanterol 25 mcg/actuation powdr for inhalation (Anoro Ellipta) 1 inh inhalation DAILY 11/25/19 [History Confirmed 05/17/22] albuterol sulfate 0.63 mg/3 mL solution for nebulization 0.63 mg inhalation QID PRN SOB 06/26/21 [History Confirmed 05/17/22] dextrose 40 % oral gel (Glutose-15) 0.6 g PO PRN PRN Hypoglycemia #112.5 grams 11/20/21 [Rx Confirmed 05/17/22] docusate sodium 100 mg capsule 100 mg PO BID #60 caps 11/20/21 [Rx Confirmed 05/17/22] furosemide 40 mg tablet 60 mg PO BID #60 tabs 11/20/21 [Rx Confirmed 05/17/22] insulin aspart U-100 100 unit/mL (3 mL) subcutaneous pen (Novolog FlexPen U-100 Insulin aspart) 1 sliding scale dose subcut TID.WM.HS #15 mL 11/20/21 [Rx Confirmed 05/17/22] pen needle, diabetic 32 gauge x 5/32 (BD Ultra-Fine Lexis Pen Needle) #100 ea 11/20/21 [Rx Confirmed 02/22/22] calcium acetate(phosphat bind) 667 mg capsule 667 mg PO TID.WITH.MEALS 60 days #240 caps 02/26/22 [Rx Confirmed 05/17/22] hydrocodone 7.5 mg-acetaminophen 325 mg tablet 1 tab PO Q6H PRN Pain 2 days #8 tabs 02/26/22 [Rx Confirmed 05/17/22] isosorbide mononitrate 60 mg tablet,extended release 24 hr 60 mg PO DAILY 05/02/22 [History Confirmed 05/17/22] valsartan 160 mg tablet 160 mg PO DAILY 05/02/22 [History Confirmed 05/17/22] carvedilol 12.5 mg tablet 12.5 mg PO BID 05/17/22 [History Confirmed 05/17/22] pantoprazole 40 mg tablet,delayed release 40 mg PO DAILY 05/17/22 [History Confirmed 05/17/22] sennosides 8.6 mg tablet (senna) 8.6 mg PO BID 05/17/22 [History Confirmed 05/17/22] Exam Physical Exam Vital Signs: Temp Pulse Resp BP Pulse Ox O2 Del Method O2 Flow Rate 96.8 F L 103 H 20 123/61 100 Nasal Cannula 2 05/18/22 10:20 05/18/22 10:20 05/18/22 10:20 05/18/22 10:20 05/18/22 10:20 05/18/22 10:20 05/18/22 10:20 Const General: no acute distress and well developed HEENT Head: normocephalic and atraumatic Mouth: moist mucous membranes Eyes Sclera: sclerae normal (no scleral icterus) EOM: EOM intact bilaterally Neck Other: trachea midline Resp Effort & Inspection: normal respiratory effort and able to speak in complete sentences GI Inspection: normal to inspection and non-distended Palpation: soft and nontender Skin General: turgor normal and no jaundice Neuro General: patient alert and patient oriented x3 Psych Appearance: grossly normal Mental Status: mental status grossly normal Results Labs Labs: Laboratory Results - last 24 hr 05/17/22 05/17/22 05/17/22 13:38 13:38 13:38 Corrected WBC 7.3 Uncorrected WBC Count 7.3 RBC 3.92 Hgb 11.7 L Hct 36.5 MCV 93.0 MCH 29.8 MCHC 32.1 RDW 18.6 H Plt Count 254 MPV 8.1 Neut % (Auto) 70.6 Lymph % (Auto) 11.9 Mchenry % (Auto) 13.9 Eos % (Auto) 2.7 Baso % (Auto) 0.9 Nucleat RBC Rel Count 0.1 Neut # (Auto) 5.2 Lymph # (Auto) 0.9 L Mchenry # (Auto) 1.0 H Eos # (Auto) 0.2 Baso # (Auto) 0.1 Monocyte Dist Width 21.10 H PT 13.3 H INR 1.2 APTT 33.0 PHA Creatinine Clear 18.01 Sodium 132 L Potassium 3.3 L Chloride 92 L Carbon Dioxide 30.6 Anion Gap 12.7 BUN 23 Creatinine 2.33 H Est GFR (CKD-EPI) 21.291 Glucose 236 H POC Glucose POC Glucose Comment Calcium 9.6 Total Bilirubin 0.5 AST 19 ALT 19 Alkaline Phosphatase 146 H Total Protein 7.0 Albumin 3.7 Globulin 3.3 Albumin/Globulin Ratio 1.1 Blood Type Antibody Screen 05/17/22 05/17/22 05/18/22 13:38 21:09 04:56 Corrected WBC 6.2 Uncorrected WBC Count 6.2 RBC 3.11 L Hgb 9.2 L Hct 28.8 L MCV 92.7 MCH 29.6 MCHC 31.9 L RDW 19.4 H Plt Count 239 MPV 8.0 Neut % (Auto) 61.7 Lymph % (Auto) 18.3 Mchenry % (Auto) 16.9 Eos % (Auto) 2.4 Baso % (Auto) 0.7 Nucleat RBC Rel Count 0.0 Neut # (Auto) 3.8 Lymph # (Auto) 1.1 Mchenry # (Auto) 1.1 H Eos # (Auto) 0.2 Baso # (Auto) 0.0 Monocyte Dist Width PT INR APTT PHA Creatinine Clear Sodium Potassium Chloride Carbon Dioxide Anion Gap BUN Creatinine Est GFR (CKD-EPI) Glucose POC Glucose 148 POC Glucose Comment Glu2: cleaned meter Calcium Total Bilirubin AST ALT Alkaline Phosphatase Total Protein Albumin Globulin Albumin/Globulin Ratio Blood Type O Positive Antibody Screen Negative 05/18/22 05/18/22 04:56 08:02 Corrected WBC Uncorrected WBC Count RBC Hgb Hct MCV MCH MCHC RDW Plt Count MPV Neut % (Auto) Lymph % (Auto) Mchenry % (Auto) Eos % (Auto) Baso % (Auto) Nucleat RBC Rel Count Neut # (Auto) Lymph # (Auto) Mchenry # (Auto) Eos # (Auto) Baso # (Auto) Monocyte Dist Width PT INR APTT PHA Creatinine Clear 12.61 Sodium 133 L Potassium 3.8 Chloride 94 L Carbon Dioxide 30.7 Anion Gap 12.1 BUN 35 H Creatinine 3.33 H D Est GFR (CKD-EPI) 13.870 Glucose 156 H POC Glucose 181 POC Glucose Comment Calcium 9.3 Total Bilirubin AST ALT Alkaline Phosphatase Total Protein Albumin Globulin Albumin/Globulin Ratio Blood Type Antibody Screen A&P - Gastroenterology Assessment/Plan (1) Bright red rectal bleeding: Code(s): K62.5 - Hemorrhage of anus and rectum Status: Acute (2) ESRD (end stage renal disease): Code(s): N18.6 - End stage renal disease Status: Acute Plan Her clinical history and presentation is very consistent with diverticular bleeding, which is already likely resolved. However it has been sometime since she has had a colonoscopy so I would recommend we repeat a colonoscopy at this time. We will do a clear liquid diet today and tomorrow with colon prep tomorrow and plan for colonoscopy on Friday. I discussed the plan with the patient and she is agreeable to this. -Clear liquid diet today and tomorrow, colon prep tomorrow -N.p.o. past midnight on Friday -Plan for colonoscopy on Friday Thank you for this consult, I will peripherally follow through the weekend. Documented By: Wilmer Azevedo MD 05/18/221201 Signed By: <Electronically signed by Wilmer Azevedo MD> 05/18/221206 [facility] Work Phone: 1(431) 483-578004-07-2023 History and physical note Author Jamal Schaefer [facility] May 17, 2022 4:51pm Note Date/Time May 17, 2022 4:51 pm [facility] [address] [place] [address] Hospitalist H&P Signed Patient: Cinthya Wilson MR#: [id number] : 1945 Acct:[id number] Age/Sex: 77 / F Adm Date: 3 Loc: 4N Room: 0N2292-6 Type: ADM IN Attending Dr: Jamal Schaefer MD Copies to: MD Lily Garrett II, MD~ HPI DATE OF EXAMINATION: 05/17/22 HISTORY OF PRESENT ILLNESS: Patient is a 77-year-old female, who presented to the Emergency Department todaywith rectal bleeding. She went to dialysis which was uneventful. When she finished dialysis, she felt as if she is going to go to need to go to the bathroom. She experienced mild cramps. She had 1 fairly sizable bloody bowel movement. Subsequently, she went 1 more time at home, and a couple more times in the emergency department. She has been having some abdominal cramps, which were initially epigastric, and then became more prominent in the right lower quadrant. At this time she still has some abdominal cramps, albeit not very severe. No nausea or vomiting. She is hungry. She has no history of GI problems. No rectal bleeding before. A colonoscopy 5 years ago was reportedly unremarkable. Past medical history End-stage renal disease on hemodialysis HFmrEF Hypertension COPD GERD Diabetes mellitus type 2 10 point review of systems negative except as noted Physical exam Patient was seen Emergency Department Patient appears comfortable, in no distress. Skin is normally colored, no icterus, cyanosis or edema noted. Joints are without any effusion. Abdomen is tender to palpation, mildly in epigastrium, more so in the right upper and right lower quadrants. No rebound or rigidity appreciated.. Heart regular, no gallop, rub or JVD. Lungs are clear to auscultation, no rales, ronchi or wheezes. HENT normal Neurological: Patient is awake. Cognition is normal. Cranial nerves are intact. Power is symmetric all extremities, with no focal motor deficit identified on a cursory exam. Psych: affect is normal. Labs imaging reviewed Assessment and plan 1. Hematochezia with cramping. Suspicion of ischemic colitis. Patient will undergo CTA imaging of the abdomen, as she is known to have vascular disease, i.e. CAD and she has multiple risk factors including hemodialysis status. GI consult Clear liquid diet Oral PPI although suspicion of an upper source is low. DVT prophylaxis SCDs Continue treatment for other comorbidities which include End-stage renal disease on hemodialysis CAD status post PTCA and stent HFmrEF Hypertension COPD GERD Diabetes mellitus type 2 PMFSH Vaccinated for COVID-19?: Yes Medical History Anemia Anxiety Anxiety and depression Arthritis CAD (coronary artery disease) Cataract had bilateral PHACO Cervical spinal stenosis CHF (congestive heart failure) Chronic back pain Chronic kidney disease COPD (chronic obstructive pulmonary disease) Diabetes GERD (gastroesophageal reflux disease) HTN (hypertension) Hyperlipidemia Insomnia Irregular heart rhythm prior to stent placement per pt report Lumbosacral spondylolysis LVH (left ventricular hypertrophy) Neck pain with history of cervical spinal surgery Neuropathy right thigh and feet Pneumonia Polymyalgia Skin cancer mohs procedure for removal Sleep apnea Surgical History H/O heart artery stent History of appendectomy History of back surgery lumbar History of x2 History of carpal tunnel release bilateral History of coronary angioplasty with insertion of stent History of D&C History of shoulder surgery rt shoulder History of tonsillectomy History of total abdominal hysterectomy and bilateral salpingo-oophorectomy Family History Father Heart disease Cancer Mother Cancer Diabetes Social History Smoking Status: Never smoker Substance Use Type: None Social History Comments: adult son Meds Medications and Allergies Allergies lisinopril Allergy (Verified 05/17/22 13:03) Cough Home Medications atorvastatin 40 mg tablet 40 mg PO QPM 11/19/16 [History Confirmed 05/17/22] multivitamin 1 tab PO DAILY 09/07/19 [History Confirmed 05/17/22] aspirin 81 mg tablet,delayed release 81 mg PO DAILY 11/25/19 [History Confirmed 05/17/22] cholecalciferol (vitamin D3) 25 mcg (1,000 unit) tablet (Vitamin D3) 25 mcg PO DAILY 11/25/19 [History Confirmed 05/17/22] citalopram 40 mg tablet 40 mg PO DAILY 11/25/19 [History Confirmed 05/17/22] umeclidinium 62.5 mcg-vilanterol 25 mcg/actuation powdr for inhalation (Anoro Ellipta) 1 inh inhalation DAILY 11/25/19 [History Confirmed 05/17/22] albuterol sulfate 0.63 mg/3 mL solution for nebulization 0.63 mg inhalation QID PRN SOB 06/26/21 [History Confirmed 05/17/22] dextrose 40 % oral gel (Glutose-15) 0.6 g PO PRN PRN Hypoglycemia #112.5 grams 11/20/21 [Rx Confirmed 05/17/22] docusate sodium 100 mg capsule 100 mg PO BID #60 caps 11/20/21 [Rx Confirmed 05/17/22] furosemide 40 mg tablet 60 mg PO BID #60 tabs 11/20/21 [Rx Confirmed 05/17/22] insulin aspart U-100 100 unit/mL (3 mL) subcutaneous pen (Novolog FlexPen U-100 Insulin aspart) 1 sliding scale dose subcut TID.WM.HS #15 mL 11/20/21 [Rx Confirmed 05/17/22] pen needle, diabetic 32 gauge x 5/32 (BD Ultra-Fine Lexis Pen Needle) #100 ea 11/20/21 [Rx Confirmed 02/22/22] calcium acetate(phosphat bind) 667 mg capsule 667 mg PO TID.WITH.MEALS 60 days #240 caps 02/26/22 [Rx Confirmed 05/17/22] hydrocodone 7.5 mg-acetaminophen 325 mg tablet 1 tab PO Q6H PRN Pain 2 days #8 tabs 02/26/22 [Rx Confirmed 05/17/22] isosorbide mononitrate 60 mg tablet,extended release 24 hr 60 mg PO DAILY 05/02/22 [History Confirmed 05/17/22] valsartan 160 mg tablet 160 mg PO DAILY 05/02/22 [History Confirmed 05/17/22] carvedilol 12.5 mg tablet 12.5 mg PO BID 05/17/22 [History Confirmed 05/17/22] pantoprazole 40 mg tablet,delayed release 40 mg PO DAILY 05/17/22 [History Confirmed 05/17/22] sennosides 8.6 mg tablet (senna) 8.6 mg PO BID 05/17/22 [History Confirmed 05/17/22] Exam Physical Exam Vital Signs: Temp Pulse Resp BP Pulse Ox O2 Del Method O2 Flow Rate 98.5 F 52 L 20 112/54 L 100 Nasal Cannula 3 05/17/22 13:04 05/17/22 16:22 05/17/22 16:22 05/17/22 16:22 05/17/22 16:22 05/17/22 16:22 05/17/22 16:22 Results Lab Results Labs: Laboratory Last Values Corrected WBC 7.3 X10E3/uL (3.8-11.6) 05/17/22 13:38 Uncorrected WBC Count 7.3 x10E3/uL (3.8-11.6) 05/17/22 13:38 RBC 3.92 X10E6/uL (3.60-5.00) 05/17/22 13:38 Hgb 11.7 g/dL (11.8-15.4) L 05/17/22 13:38 Hct 36.5 % (34.0-46.4) 05/17/22 13:38 MCV 93.0 fl (80-100) 05/17/22 13:38 MCH 29.8 pg (24.7-34.3) 05/17/22 13:38 MCHC 32.1 g/dL (32.0-35.0) 05/17/22 13:38 RDW 18.6 % (11.9-15.3) H 05/17/22 13:38 Plt Count 254 x10E3/uL (150-450) 05/17/22 13:38 MPV 8.1 fl (6.3-10.7) 05/17/22 13:38 Neut % (Auto) 70.6 % (.) 05/17/22 13:38 Lymph % (Auto) 11.9 % (.) 05/17/22 13:38 Mchenry % (Auto) 13.9 % (.) 05/17/22 13:38 Eos % (Auto) 2.7 % (.) 05/17/22 13:38 Baso % (Auto) 0.9 % (.) 05/17/22 13:38 Nucleat RBC Rel Count 0.1 /100 WBC (0-0.5) 05/17/22 13:38 Neut # (Auto) 5.2 x10E3/uL (1.8-7.7) 05/17/22 13:38 Lymph # (Auto) 0.9 x10E3/uL (1.00-4.8) L 05/17/22 13:38 Mchenry # (Auto) 1.0 x10E3/uL (0.0-0.8) H 05/17/22 13:38 Eos # (Auto) 0.2 x10E3/uL (0.0-0.45) 05/17/22 13:38 Baso # (Auto) 0.1 x10E3/uL (0.0-0.2) 05/17/22 13:38 Monocyte Dist Width 21.10 % (0.00-20.00) H 05/17/22 13:38 PT 13.3 Seconds (9.0-12.9) H 05/17/22 13:38 INR 1.2 05/17/22 13:38 APTT 33.0 Seconds (25.1-36.5) 05/17/22 13:38 PHA Creatinine Clear 18.01 05/17/22 13:38 Sodium 132 mmol/L (136-145) L 05/17/22 13:38 Potassium 3.3 mmol/L (3.5-5.1) L 05/17/22 13:38 Chloride 92 mmol/L (98-107) L 05/17/22 13:38 Carbon Dioxide 30.6 mmol/L (21.0-31.0) 05/17/22 13:38 Anion Gap 12.7 mEq/L (6.0-15.0) 05/17/22 13:38 BUN 23 mg/dL (7-25) 05/17/22 13:38 Creatinine 2.33 mg/dL (0.60-1.20) H 05/17/22 13:38 Est GFR (CKD-EPI) 21.291 mL/Min 05/17/22 13:38 Glucose 236 mg/dL (70-100) H 05/17/22 13:38 Calcium 9.6 mg/dL (8.6-10.3) 05/17/22 13:38 Total Bilirubin 0.5 mg/dl (0.3-1.0) 05/17/22 13:38 AST 19 U/L (13-39) 05/17/22 13:38 ALT 19 U/L (7-52) 05/17/22 13:38 Alkaline Phosphatase 146 U/L (34-104) H 05/17/22 13:38 Total Protein 7.0 gm/dL (6.4-8.9) 05/17/22 13:38 Albumin 3.7 gm/dL (3.5-5.7) 05/17/22 13:38 Globulin 3.3 gm/dL 05/17/22 13:38 Albumin/Globulin Ratio 1.1 05/17/22 13:38 Blood Type O Positive 05/17/22 13:38 Antibody Screen Negative 05/17/22 13:38 Microbiology Results Micro: Microbiology - Results from entire visit 05/17/22 13:18 Stool Stool Occult Blood ([facility]) - Final Documented By: Jamal Schaefer MD 05/17/22 1645 Signed By: <Electronically signed by Jamal Schaefer MD> 05/17/22 1651 [facility] Work Phone: [phone]) 604-568803-23-2023 [facility] Evaluation note* Encounter Date Diagnosis Assessment Notes Treatment Notes Treatment Clinical Notes Apr, Arteriovenous fistula stenosis, initial encounter (ICD-10 - T82.858A) I suggest we perform a fistulogram to evaluate for any potential stenoses in the body of this fistula. This may be contributing to her some of her issues at dialysis. Overall the fistula duplex looks pretty good. I do think we need to investigate this further. I explained to the patient she understands agrees the plan all of her questions were addressed. Consent was obtained. [employer] Other 01-18-2023 Progress note Author Simone Godoy [facility] February 27, 2022 12:31pm Note Date/Time February 27, 2022 1 2:32pm [facility] [address] [place] [address] Hospitalist Progress Note Signed Patient: Cinthya Wilson MR#: [id number] : 1945 Acct:[id number] Age/Sex: 76 / F Adm Date: 3 Loc: 4N Room: [address] [place] [address] Type: ADM IN Attending Dr: Simone Godoy MD Copies to: ~ Date of Service: 02/27/2022 Subjective Subjective Narrative: Patient seen and examined during dialysis today. She reports feeling much improved since admission. She is tolerating dialysis well, denies nausea or vomiting. Exam Physical Exam Vital Signs: Temp Pulse Resp BP Pulse Ox O2 Del Method O2 Flow Rate 98.3 F 61 16 111/50 L 99 Nasal Cannula 3 02/27/22 11:55 02/27/22 12:00 02/27/22 11:55 02/27/22 12:00 02/27/22 11:55 02/27/22 09:15 02/27/22 09:15 Narrative: Patient is awake and alert, oriented to place, time and person, morbidly obese HEENT: pink conjunctiva and normal buccal mucosa Neck: supple, no tenderness Endocrine: no thyromegaly Vascular: No JVD or carotid bruit Lymphatic: no cervical lymphadenopathy Chest: CTA bilaterally Heart: RRR, no extra sounds or murmurs Abd: soft NT, no rebound or rigidity, increased abdominal girth, therefore, clinically I could not exclude the possibility of intra-abdominal mass or organomegaly Ext: no cyanosis or clubbing, no varices or edema Neuro: A&O x3, normal speech comprehension and attention, normal and symmetricalmotor and tone examination throughout Objective Lab Results 02/27/22 04:28 02/27/22 04:28 Microbiology Results Microbiology 02/22/22 22:10 Blood - Right Antecubital Blood Culture - Preliminary No Growth 4 Days 02/22/22 21:53 Blood Blood Culture - Preliminary No Growth 4 Days Meds Allergies and Active Meds Allergies lisinopril Allergy (Verified 02/22/22 18:27) Cough Active Meds: Active Medications Generic Name Dose Route Start Last Admin Trade Name Molinaq PRN Reason Stop Dose Admin Acetaminophen 650 mg 02/22/22 21:17 02/26/22 16:40 Acetaminophen 325 Mg Tablet PO 02/22/23 21:16 650 mg Q6HR PRN Administration Pain Scale 1 - 3 or fever Hydrocodone Bitart/Acetaminophen 1 tab 02/22/22 23:16 02/27/22 07:36 Hydrocodone/Acetaminophen 7.5-325mg Tablet PO 1 tab Q6H PRN Administration Pain Albuterol 2.5 mg 02/22/22 21:26 02/25/22 02:14 Albuterol Neb 2.5 Mg/3 Ml Vial.Neb INHALATION 02/22/23 21:25 2.5 mg QID PRN Administration Shortness Of Breath Albuterol/Ipratropium 3 ml 02/23/22 08:00 02/27/22 12:29 Ipratropium/Albuterol 0.5-3 Mg 3 Ml Ampul.Neb INHALATION 02/23/23 07:59 NotGiven QID.RESP YESSENIA Aspirin 81 mg 02/23/22 09:00 02/26/22 08:31 Aspirin 81 Mg Tablet.Dr PO 02/23/23 08:59 81 mg DAILY YESSENIA Administration Atorvastatin Calcium 40 mg 02/23/22 21:00 02/26/22 21:12 Atorvastatin 40 Mg Tablet PO 02/23/23 20:59 40 mg QPM YESSENIA Administration Calcium Acetate 667 mg 02/24/22 17:00 02/27/22 09:01 Calcium Acetate 667 Mg Capsule PO 02/24/23 16:59 667 mg TID.WITH.MEALS YESSENIA Administration Carvedilol 12.5 mg 02/23/22 09:00 02/27/22 09:01 Carvedilol 12.5 Mg Tablet PO 02/23/23 08:59 12.5 mg BID YESSENIA Administration Citalopram Hydrobromide 40 mg 02/23/22 09:00 02/26/22 08:32 Citalopram 40 Mg Tablet PO 02/23/23 08:59 40 mg DAILY YESSENIA Administration Heparin Sodium (Porcine) 5,000 unit 02/22/22 22:00 02/27/22 05:05 Heparin 5,000 Unit/Ml Vial SUBCUT 02/22/23 21:59 5,000 unit Q8HR YESSENIA Administration Heparin Sodium (Porcine) 2,000 unit 02/23/22 10:59 02/27/22 10:54 Heparin 10,000 Unit/10 Ml Vial IV 02/23/23 10:58 2,000 unit PRN PRN Administration Dialysis Hydralazine HCl 50 mg 02/22/22 22:00 02/27/22 09:00 Hydralazine 50 Mg Tablet PO 02/22/23 21:59 50 mg TID YESSENIA Administration Sodium Chloride 1,000 mls @ 0 mls/hr 02/23/22 10:59 02/25/22 11:08 0.9% Sodium Chloride 1,000 Ml MISCELLANE 02/23/23 10:58 Infused .Q0M PRN Infusion Dialysis As Directed Sodium Chloride 500 mls @ 20 mls/hr 02/27/22 08:35 0.9 % Sodium Chloride IV 02/28/22 08:34 PROTOCOL PRN BLOOD TRANSFUSION Sodium Chloride 1,000 mls @ 0 mls/hr 02/27/22 09:17 02/27/22 10:54 0.9% Sodium Chloride 1,000 Ml MISCELLANE 02/27/23 09:16 Infused .Q0M PRN Infusion Dialysis As Directed Insulin Aspart 0 units 02/22/22 22:00 02/27/22 09:01 Insulin Aspart 300 Units/3 Ml Insuln.Pen SUBCUT 02/22/23 21:59 2 units TID.WM.HS YESSENIA Administration Protocol Melatonin 5 mg 02/22/22 21:17 Melatonin 5 Mg Tablet PO 02/22/23 21:16 QHS PRN Insomnia Nystatin 1 applic 02/23/22 02:43 02/24/22 17:03 Nystatin 100,000 Unit/Gram Powder 15 Gm Bottle TOPICAL 1 applic BID PRN Administration Skin Irritation Omeprazole 40 mg 02/23/22 09:00 02/26/22 08:31 Omeprazole 20 Mg Capsule. PO 02/23/23 08:59 40 mg DAILY YESSENIA Administration Promethazine HCl 12.5 mg 02/22/22 21:17 02/25/22 13:52 Promethazine 25 Mg/Ml Vial IV-PUSH 02/22/23 21:16 12.5 mg Q6H PRN Administration Nausea And Vomiting Sodium Chloride 0 ml 02/22/22 18:26 02/24/22 08:29 Sodium Chloride 0.9 % 10 Ml Syringe IV-PUSH 02/22/23 18:25 10 ml PRN PRN Administration Flush Sodium Chloride 10 ml 02/22/22 21:17 02/25/22 13:52 Sodium Chloride 0.9 % 10 Ml Vial.Pf INJECTION 02/22/23 21:16 10 ml PRN PRN Administration Promethazine Dilution Sodium Chloride 0 ml 02/23/22 10:59 02/27/22 10:53 Sodium Chloride 0.9 % 10 Ml Syringe IV-PUSH 02/23/23 10:58 10 ml PRN PRN Administration Flush Sodium Chloride 0 ml 02/27/22 09:17 Sodium Chloride 0.9 % 10 Ml Syringe IV-PUSH 02/27/23 09:16 PRN PRN Flush Spironolactone 12.5 mg 02/25/22 09:00 02/26/22 08:33 Spironolactone 12.5 Mg Tablet PO 02/25/23 08:59 12.5 mg DAILY YESSENIA Administration Temazepam 15 mg 02/22/22 23:16 02/26/22 21:12 Temazepam 15 Mg Capsule PO 08/21/22 23:15 15 mg QHS PRN Administration Sleep Tramadol HCl 50 mg 02/26/22 10:24 Tramadol 50 Mg Tablet PO 08/21/22 21:16 Q12H PRN Pain Scale 4 - 7 Valsartan 80 mg 02/25/22 09:00 02/27/22 09:00 Valsartan 80 Mg Tablet PO 02/25/23 08:59 80 mg DAILY YESSENIA Administration A&P - Hospitalist Assessment/Plan (1) Acute hypoxemic respiratory failure: (2) DAVID (acute kidney injury): (3) Systolic and diastolic CHF, acute on chronic: (4) UTI (urinary tract infection): (5) Anemia: (6) HTN (hypertension): (7) Diabetes: (8) COPD (chronic obstructive pulmonary disease): Plan Assessment and plan Progression of CKD stage V and fluid overload requiring initiation of hemodialysis Uremia and uremic encephalopathy Hemodialysis initiated during this admission and is tolerating dialysis well. Plan was for possible discharge today however outpatient dialysis needs to be arranged. Medically stable for discharge once outpatient arrangements are completed. Other chronic stable problems include Hypertension: Discussed blood pressure management with radha Bernal with valsartan and spironolactone on discharge COPD GERD Diabetes mellitus type Dialysis has been arranged, the patient will be discharged today Documented By: Simone Godoy MD 02/27/22 1231 Signed By: <Electronically signed by Simone Godoy MD> 02/27/22 1231 [facility] Work Phone: [phone]) 713-893501-17-2023 Progress note Author Geronimo Fofana [facility] February 26, 2022 1:24pm Note Date/Time February 26, 2022 1 :24pm [facility] [address] [place] [address] Nephrology Progress Note Signed Patient: Cinthya Wilson MR#: [id number] : 1945 Acct:[id number] Age/Sex: 76 / F Adm Date: 3 Loc: 4N Room: 7W6266-2 Type: ADM IN Attending Dr: Simone Godoy MD Copies to: ~ Date of Service: 02/26/2022 Subjective Subjective Narrative: Mrs. 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 Patient is known to our service and she had historyof DAVID requiring peritoneal dialysis for almost a year before renal recovery with serum creatinine stabilized at 2.5 mg/dL.? Recently, CKD progressed to stage IV/V with recurrent admissions for CHF and pleural effusion and shortness of breath. She was also discharged from the hospital on November 2021 for fluid overload that was treated with diuretics and furosemide was increased to 60 mg twice a day.? Patient has left arm AV fistula that is ready to be used.? She had a recent ultrasound that showed fistula is less than 6 mm below the skin with adequate blood flow. Patient presented to the ER yesterday again with manifestation of shortness of breath with volume overload and altered mental status.? She had poor appetite with decreased oral intake.? She has difficulty to sleep over the last few days.? She has mild abdominal distention, edema and shortness of breath.? She normally will 3 L/min nasal cannula at home.? She has a recurrent pleural effusion that required thoracocentesis.? Evaluation in the ER showed mild wheezes with labored breathing.? ER lab showed hemoglobin of 8.2.? Chemistry wassignificant for mild acidosis 18.4, BUN up to 126, creatinine 5.19 mg/dL significant higher than baseline.? BNP is elevated as well 3549.? Urine analysisshowed 10-19 WBCs with no bacteria.? Culture is pending.? Nasal swab was negative for influenza and COVID-19. Chest x-ray showed bibasilar groundglass opacities and cardiomegaly.? CT scan ofthe head showed atrophy and chronic microvascular changes. EKG showed sinus rhythm with first-degree AV block. Interval history: Patient is being seen and examined in her room. She has advanced CKD currently ESRD.? Shortness of breath is improving with ultrafiltration.? Appetite did improve as well. No nausea no vomiting. No diarrhea. No cough. No abdominal pain. No chest pain Exam Physical Exam Vital Signs: Temp Pulse Resp BP Pulse Ox O2 Del Method O2 Flow Rate 99 F 60 22 96/55 L 99 Nasal Cannula 3 02/26/22 12:00 02/26/22 12:00 02/26/22 12:00 02/26/22 12:00 02/26/22 12:00 02/26/22 12:00 02/26/22 12:00 Narrative: General: No acute distress Head :atraumatic normocephalic Eyes: PERRLA. Neck: no JVD no bruit. Heart: S1-S2. RRR Respiratory: Clear to auscultation. No wheezing. No crackles Abdomen: Soft, positive bowel sounds,no tenderness. Neurology: Awake alert oriented x3. No focal deficits Extremity. No cyanosis. No edema Skin: No skin rash Objective Intake and Output I&O: Intake & Output 02/23/22 02/24/22 02/25/22 02/26/22 23:59 23:59 23:59 23:59 Intake Total 900 / 900 970 / 970 1620 / 1620 175 / 175 Output Total 3401 / 3401 500 / 500 5438 / 5438 50 / 50 Balance -2501 / -2501 470 / 470 -3818 / -3818 125 / 125 Weight 77.1 kg 74.9 kg 75.8 kg 73.8 kg Meds and Allergies Meds: Active Medications Acetaminophen (Acetaminophen 325 Mg Tablet) 650 mg PO Q6HR PRN PRN Reason: Pain Scale 1 - 3 or fever Stop: 02/22/23 21:16 Hydrocodone Bitart/Acetaminophen (Hydrocodone/Acetaminophen 7.5-325mg Tablet) 1tab PO Q6H PRN PRN Reason: Pain Last Admin: 02/25/22 08:13 Dose: 1 tab Albuterol (Albuterol Neb 2.5 Mg/3 Ml Vial.Neb) 2.5 mg INHALATION QID PRN PRN Reason: Shortness Of Breath Stop: 02/22/23 21:25 Last Admin: 02/25/22 02:14 Dose: 2.5 mg Albuterol/Ipratropium (Ipratropium/Albuterol 0.5-3 Mg 3 Ml Ampul.Neb) 3 ml INHALATION QID.RESP YESSENIA Stop: 02/23/23 07:59 Last Admin: 02/26/22 12:15 Dose: 3 ml Aspirin (Aspirin 81 Mg Tablet.Dr) 81 mg PO DAILY YESSENIA Stop: 02/23/23 08:59 Last Admin: 02/26/22 08:31 Dose: 81 mg Atorvastatin Calcium (Atorvastatin 40 Mg Tablet) 40 mg PO QPM YESSENIA Stop: 02/23/23 20:59 Last Admin: 02/25/22 21:20 Dose: 40 mg Calcium Acetate (Calcium Acetate 667 Mg Capsule) 667 mg PO TID.WITH.MEALS YESSENIA Stop: 02/24/23 16:59 Last Admin: 02/26/22 12:28 Dose: 667 mg Carvedilol (Carvedilol 12.5 Mg Tablet) 12.5 mg PO BID YESSENIA Stop: 02/23/23 08:59 Last Admin: 02/26/22 08:32 Dose: 12.5 mg Citalopram Hydrobromide (Citalopram 40 Mg Tablet) 40 mg PO DAILY YESSENIA Stop: 02/23/23 08:59 Last Admin: 02/26/22 08:32 Dose: 40 mg Heparin Sodium (Porcine) (Heparin 5,000 Unit/Ml Vial) 5,000 unit SUBCUT Q8HR YESSENIA Stop: 02/22/23 21:59 Last Admin: 02/26/22 05:02 Dose: 5,000 unit Heparin Sodium (Porcine) (Heparin 10,000 Unit/10 Ml Vial) 2,000 unit IV PRN PRN PRN Reason: Dialysis Stop: 02/23/23 10:58 Last Admin: 02/25/22 11:06 Dose: 2,000 unit Hydralazine HCl (Hydralazine 50 Mg Tablet) 50 mg PO TID YESSENIA Stop: 02/22/23 21:59 Last Admin: 02/26/22 08:32 Dose: 50 mg Sodium Chloride (0.9% Sodium Chloride 1,000 Ml) 1,000 mls @ 0 mls/hr MISCELLANE.Q0M PRN PRN Reason: Dialysis Stop: 02/23/23 10:58 Last Infusion: 02/25/22 11:08 Dose: Infused Insulin Aspart (Insulin Aspart 300 Units/3 Ml Insuln.Pen) 0 units SUBCUT TID.WM.HS [facility]; Protocol Stop: 02/22/23 21:59 Last Admin: 02/26/22 12:29 Dose: 1 units Melatonin (Melatonin 5 Mg Tablet) 5 mg PO QHS PRN PRN Reason: Insomnia Stop: 02/22/23 21:16 Nystatin (Nystatin 100,000 Unit/Gram Powder 15 Gm Bottle) 1 applic TOPICAL BID PRN PRN Reason: Skin Irritation Last Admin: 02/24/22 17:03 Dose: 1 applic Omeprazole (Omeprazole 20 Mg Capsule.Dr) 40 mg PO DAILY [facility] Stop: 02/23/23 08:59 Last Admin: 02/26/22 08:31 Dose: 40 mg Promethazine HCl (Promethazine 25 Mg/Ml Vial) 12.5 mg IV-PUSH Q6H PRN PRN Reason: Nausea And Vomiting Stop: 02/22/23 21:16 Last Admin: 02/25/22 13:52 Dose: 12.5 mg Sodium Chloride (Sodium Chloride 0.9 % 10 Ml Syringe) 0 ml IV-PUSH PRN PRN PRN Reason: Flush Stop: 02/22/23 18:25 Last Admin: 02/24/22 08:29 Dose: 10 ml Sodium Chloride (Sodium Chloride 0.9 % 10 Ml Vial.Pf) 10 ml INJECTION PRN PRN PRN Reason: Promethazine Dilution Stop: 02/22/23 21:16 Last Admin: 02/25/22 13:52 Dose: 10 ml Sodium Chloride (Sodium Chloride 0.9 % 10 Ml Syringe) 0 ml IV-PUSH PRN PRN PRN Reason: Flush Stop: 02/23/23 10:58 Last Admin: 02/25/22 11:07 Dose: 10 ml Spironolactone (Spironolactone 12.5 Mg Tablet) 12.5 mg PO DAILY [facility] Stop: 02/25/23 08:59 Last Admin: 02/26/22 08:33 Dose: 12.5 mg Temazepam (Temazepam 15 Mg Capsule) 15 mg PO QHS PRN PRN Reason: Sleep Stop: 08/21/22 23:15 Last Admin: 02/24/22 21:28 Dose: 15 mg Tramadol HCl (Tramadol 50 Mg Tablet) 50 mg PO Q12H PRN PRN Reason: Pain Scale 4 - 7 Stop: 08/21/22 21:16 Valsartan (Valsartan 80 Mg Tablet) 80 mg PO DAILY YESSENIA Stop: 02/25/23 08:59 Last Admin: 02/26/22 08:32 Dose: 80 mg Allergies lisinopril Allergy (Verified 02/22/22 18:27) Cough Results Labs 02/26/22 04:37 02/26/22 04:37 Labs: 02/26/22 04:37 BUN 45 H D Creatinine 3.13 H D Radiology Impressions Impressions - last 24 hours: Any impression(s) listed above is documentation that was entered by the reading physician into a diagnostic report(s) for Cinthya Wilson. I have reviewed the report(s) and am incorporating any findings in the treatment plan of this patient where applicable. A&P - Nephrology Assessment/Plan (1) ESRD (end stage renal disease): Plan: Patient has progressive CKD currently reaching ESRD with recurrent admission forvolume overload.? Clinically the patient has poor oral intake, edema with weightgain and asterixis.? Hemodialysis was started on 02/23.? She has AV fistula (2) Anemia: Plan: Patient has significant anemia with hemoglobin 7.4 g/dL.? Ferritin more than 1000, situation slightly down to 17%.? She has adequate B12 and folic acid. (3) Systolic and diastolic CHF, acute on chronic: Plan: Patient has recurrent CHF with EF 45%.? She had ultrafiltration with dialysis 2 L.? She is on 3 L oxygen. (4) Diabetes: Plan: He has a longstanding history of diabetes with multiple diabetic complications (5) Primary hypertension: Plan: Blood pressure controlled on furosemide, isosorbide and hydralazine mainly for CHF with low EF. Plan * No need for hemodialysis in today. Next of the session will be tomorrow as outpatient in [facility] unit * Continue Aranesp 40 mcg weekly for anemia in chronic kidney disease.? She has adequate iron stores, B12 and folic acid. * Continue calcium acetate 667 mg with each meal. * All medications were reviewed and will continue at the same. * Outpatient dialysis is being arranged at [facility] dialysis unit closer to her home. Documented By: Geronimo Fofana MD 02/26/22 1321 Signed By: <Electronically signed by Geronimo Fofana MD> 02/26/22 1324 [facility] Work Phone: [phone] 533-362201-17-2023 Discharge summary Author Simone Godoy [facility] February 26, 2022 12:11pm Note Date/Time February 26, 2022 1 2:09pm [facility] [address] [place], [place] [id number] Discharge Summary Signed Patient: Cinthya Wilson MR#: [id number] : 1945 Acct:[id number] Age/Sex: 76 / F Adm Date: 3 Loc: 4N Room: [address] [place] [address]: Simone Godoy MD Copies to: MD Simone Bourgeois II, MD~ Providers Date of Discharge: 02/26/22 Discharging Provider: Simone Godoy Primary Care Provider: Lily Aldrich Consults: 02/22/22 21:22 Consult to Nephrology Routine Consult to Occupational Therapy Routine Consult to Physical Therapy Routine 02/22/22 23:09 Consult to Dietitian Routine Discharge Diagnosis (1) Acute hypoxemic respiratory failure: (2) DAVID (acute kidney injury): (3) Systolic and diastolic CHF, acute on chronic: (4) UTI (urinary tract infection): (5) Anemia: (6) HTN (hypertension): (7) Diabetes: (8) COPD (chronic obstructive pulmonary disease): Final Diagnosis Final Discharge Diagnosis: UTI Anemia ESRD on HD HTN, DM, COPD Summary Hospital Course Hospital course: Ms. Wilson is a 76-year-old female with a PMH of CKD stage IV, CAD, HFrEF, T2DM, HTN, HLD, DOTTY who presented to the emergency room for complaints ofaltered mental status, abdominal distention, and shortness of breath.? Patient seen and evaluated in the emergency room, daughter at bedside.? Patient is alertand oriented x3 at this time.? She states that she has not been eating or sleeping well.? She complains of abdominal distention with shortness of breath.?She normally wears oxygen at 3 L nasal cannula at home, she denies turning up her oxygen.? 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 She states that he scheduled her for a CAT scan on Friday and she is to follow-up with him next week. She states she has gained 5 pounds since Friday.? She denies fever, chills, nausea and vomiting.? She does complain of midsternal chest pain that radiates under her right breast, and shortness of breath.? SPO2 is 100%, respirations are mildly labored.? Audible wheezes noted when sitting up in bed.?The daughter states the patient has been alert and oriented at home, however at times she stares off into space and her conversation does not make sense. ER work-up includes CBC with an H&H of 8.2/26.? CMP with a sodium of 132, .4, gap 18.6, BUN 126, creatinine 5.19, glucose 142.? Troponin 82.? BNP 3549.?UA with leukocyte esterase, 10-19 WBCs, no bacteria seen?culture pending.? Nasalswab negative for influenza and COVID.? Chest x-ray shows bibasilar groundglass opacities, mild parenchymal changes and mild cardiomegaly.? CT of the head showsatrophy and chronic microvascular changes, no acute intracranial abnormality.? EKG sinus rhythm with a first-degree block.? She will be admitted to the Medrelemetry floor under the care of the hospitalist team for further evaluation and treatment Patient received hemodialysis. She is feeling much better. She is discharged in stable condition with close follow-up with nephrology for further dialysis Condition Condition at Discharge: Stable Time Spent with Patient Time spent providing/coordinating discharge services (# min): 25 Diagnostic Studies Completed and Pending Studies Pending studies at discharge: 02/22/22 22:10 Blood Culture Stat 02/27/22 05:00 Basic Metabolic Panel [CHEM] IN AM Hemogram CBC Without Diff IN AM 02/28/22 05:00 Basic Metabolic Panel [CHEM] IN AM Preliminary micro results at discharge 02/22/22 22:10 Blood Culture - Preliminary Blood - Right Antecubital No Growth 3 Days 02/22/22 21:53 Blood Culture - Preliminary Blood No Growth 3 Days Labs on day of discharge: 02/26/22 11:52: POC Glucose 154 02/26/22 08:09: POC Glucose 126 02/26/22 04:37: PHA Creatinine Clear 15.52, Sodium 128 L, Potassium 3.9, Chloride 94 L, Carbon Dioxide 24.0, Anion Gap 13.9, BUN 45 H D, Creatinine 3.13 H D, Est GFR ( Amer) 18, Est GFR (Non-Af Amer) 15, Glucose 126 H, Calcium 8.4 02/26/22 04:37: Corrected WBC 5.1, RBC 2.46 L, Hgb 7.3 L, Hct 23.2 L, MCV 94.3, MCH 29.7, MCHC 31.5 L, RDW 15.5 H, Plt Count 171, MPV 8.3 02/25/22 21:08: POC Glucose 154 02/25/22 17:15: POC Glucose 187, POC Glucose Comment Glu2: cleaned meter 02/24/22 03:40: Hepatitis A IgM Ab Negative, Hep Bs Antigen Negative, Hep B Core IgM Ab Negative, Hepatitis C Ab (EIA) <0.1, Hepatitis C Interp Exam Physical Exam Vital Signs: Temp Pulse Resp BP Pulse Ox O2 Del Method O2 Flow Rate 99 F 60 22 96/55 L 99 Nasal Cannula 3 02/26/22 12:00 02/26/22 12:00 02/26/22 12:00 02/26/22 12:00 02/26/22 12:00 02/26/22 12:00 02/26/22 12:00 Narrative: Patient is awake and alert, oriented to place, time and person, morbidly obese HEENT: pink conjunctiva and normal buccal mucosa Neck: supple, no tenderness Endocrine: no thyromegaly Vascular: No JVD or carotid bruit Lymphatic: no cervical lymphadenopathy Chest: CTA bilaterally Heart: RRR, no extra sounds or murmurs Abd: soft NT, no rebound or rigidity, increased abdominal girth, therefore, clinically I could not exclude the possibility of intra-abdominal mass or organomegaly Ext: no cyanosis or clubbing, no varices or edema Neuro: A&O x3, normal speech comprehension and attention, normal and symmetrical motor and tone examination throughout Discharge Plan Discharge Plan Patient Disposition: Home Health [facility] Activity: Ambulate as Tolerated Diet: Diabetic and Renal Comment: 60 grams of protein/day Additional Instructions: Continue oxygen at 3L NC as per chronic orders Monitor glucose levels as before. Home health to manage: -RN/PT/OT/Aide to eval and treat -Monitor VS per protocol -Fall precautions -Monitor intake and output -Perform cardiovascular and respiratory assessments -Daily weights -Provide CHF education -Continue oxygen at 3L NC -Monitor for signs of infection -Wound care BID: *Theraworx protect to bilateral groin and abdominal fold redness. -Change dressing every 3 days: *Mepilex border foam to Coccyx for protection. -Monitor for urinary retention-- hobson catheter was removed on -Assist with medication management and education -Monitor glucose levels as before Instructions: Heart Failure, Adult (DC), End Stage Kidney Disease (DC) Prescriptions: New valsartan 160 mg tablet 160 mg PO DAILY Qty: 30 11RF spironolactone 25 mg tablet 25 mg PO DAILY Qty: 30 11RF Continued multivitamin Tablet 1 tab PO DAILY omeprazole 40 mg Capsule,Delayed Release(Dr/Ec) 40 mg PO DAILY hydrocodone-acetaminophen 7.5-325 mg tablet 1 tab PO Q6H PRN (Reason: Pain) Patient Comments: TAKE 1 TABLET BY MOUTH EVERY 6 HOURS NEEDED FOR PAIN FOR 10 DAYS dextrose [Glutose-15] 40 % Gel 0.6 g PO PRN PRN (Reason: Hypoglycemia) Qty: 112.5 0RF docusate sodium 100 mg Capsule 100 mg PO BID Qty: 60 0RF furosemide 40 mg Tablet 60 mg PO BID Qty: 60 3RF Rx Instructions: 1 TABLET PO DAILY insulin aspart U-100 [Novolog FlexPen U-100 Insulin] 100 unit/mL (3 mL) Insulin Pen 1 sliding scale dose subcut TID.WM.HS Qty: 15 0RF (DME) pen needle, diabetic [BD Ultra-Fine Lexis Pen Needle] 32 gauge x 5/32 needle Qty: 100 0RF Rx Instructions: As Directed - FSBS AC/HS atorvastatin 40 mg tablet 40 mg PO QPM Patient Comments: Rx Instructions: 1 tablet PO daily hydralazine 50 mg Tablet 50 mg PO TID Rx Instructions: 1 tablet PO BID citalopram 40 mg tablet 40 mg PO DAILY aspirin 81 mg Tablet,Delayed Release (Dr/Ec) 81 mg PO DAILY carvedilol 3.125 mg tablet 12.5 mg PO BID Patient Comments: TAKE 1 TABLET BY MOUTH TWICE A DAY WITH FOOD Anoro Ellipta 62.5-25 mcg/actuation blister with device 1 inh INHALATION DAILY Patient Comments: INHALE 1 PUFF ONCE A DAY cholecalciferol (vitamin D3) [Vitamin D3] 25 mcg (1,000 unit) Tablet 25 mcg PO DAILY albuterol sulfate 0.63 mg/3 mL Solution For Nebulization 0.63 mg inhalation QID PRN (Reason: SOB) Discontinued losartan 25 mg tablet 25 mg PO DAILY Qty: 30 1RF isosorbide mononitrate 60 mg tablet extended release 24 hr 60 mg PO QAM Patient Comments: Rx Instructions: 1 tablet PO daily Other Ambulatory Orders: Initiate Home Health (Routine) Timeframe: 20220225 Location: Determined by Patient Ordered By: Marjorie Meehan Follow Up: [facility] D[facility] - [facility] [Outside] Lily Aldrich II, MD [Primary Care Provider] - 03/07/22 10:15 am (You have been scheduled for a follow up appointment for the following date and time, please call to reschedule if needed.) Documented By: Simone Godoy MD 02/26/22 1208 Signed By: <Electronically signed by Simone Godoy MD> 02/26/22 1211 [facility] Work Phone: 1([phone] 849-983001-16-2023 Progress note Author Marjorie Meehan [facility] February 25, 2022 5:23pm Note Date/Time February 25, 2022 5 :23pm [facility] [address] [place] [address] Hospitalist Progress Note Signed Patient: Cinthya Wilson MR#: [id number] : 1945 Acct:[id number] Age/Sex: 76 / F Adm Date: 3 Loc: 4N Room: 4W6417-0 Type: ADM IN Attending Dr: Marjorie Meehan DO Copies to: ~ Date of Service: 02/25/2022 Subjective Subjective Narrative: Patient seen and examined during dialysis today. She reports feeling much improved since admission. She is tolerating dialysis well, denies nausea or vomiting. Exam Physical Exam Vital Signs: Temp Pulse Resp BP Pulse Ox O2 Del Method O2 Flow Rate 98.2 F 69 20 110/51 L 99 Nasal Cannula 3 02/25/22 15:20 02/25/22 16:09 02/25/22 16:09 02/25/22 15:20 02/25/22 15:20 02/25/22 16:10 02/25/22 16:10 Narrative: General: Appears chronically ill, generalized pallor, alert, no acute distress HEENT: Normocephalic, atraumatic, pupils are equal and reactive to light, trachea is midline Lungs: Clear on auscultation bilaterally, no wheezing or rhonchi Cardio: S1-S2 Abdomen: Protuberant abdomen soft, nondistended nontender to palpation LE: No lower extremity edema Neuro: A&O X3, Speech is clear Skin: Warm and dry Objective Lab Results 02/25/22 04:15 02/25/22 04:15 Microbiology Results Microbiology 02/22/22 22:10 Blood - Right Antecubital Blood Culture - Preliminary No Growth 2 Days 02/22/22 21:53 Blood Blood Culture - Preliminary No Growth 2 Days Meds Allergies and Active Meds Allergies lisinopril Allergy (Verified 02/22/22 18:27) Cough Active Meds: Active Medications Generic Name Dose Route Start Last Admin Trade Name Freq PRN Reason Stop Dose Admin Acetaminophen 650 mg 02/22/22 21:17 Acetaminophen 325 Mg Tablet PO 02/22/23 21:16 Q6HR PRN Pain Scale 1 - 3 or fever Hydrocodone Bitart/Acetaminophen 1 tab 02/22/22 23:16 02/25/22 08:13 Hydrocodone/Acetaminophen 7.5-325mg Tablet PO 1 tab Q6H PRN Administration Pain Albuterol 2.5 mg 02/22/22 21:26 02/25/22 02:14 Albuterol Neb 2.5 Mg/3 Ml Vial.Neb INHALATION 02/22/23 21:25 2.5 mg QID PRN Administration Shortness Of Breath Albuterol/Ipratropium 3 ml 02/23/22 08:00 02/25/22 16:09 Ipratropium/Albuterol 0.5-3 Mg 3 Ml Ampul.Neb INHALATION 02/23/23 07:59 3 ml QID.RESP YESSENIA Administration Aspirin 81 mg 02/23/22 09:00 02/25/22 08:14 Aspirin 81 Mg Tablet.Dr PO 02/23/23 08:59 81 mg DAILY YESSENIA Administration Atorvastatin Calcium 40 mg 02/23/22 21:00 02/24/22 21:28 Atorvastatin 40 Mg Tablet PO 02/23/23 20:59 40 mg QPM [facility] Administration Calcium Acetate 667 mg 02/24/22 17:00 02/25/22 11:56 Calcium Acetate 667 Mg Capsule PO 02/24/23 16:59 Not Given TID.WITH.MEALS [facility] Carvedilol 12.5 mg 02/23/22 09:00 02/25/22 08:16 Carvedilol 12.5 Mg Tablet PO 02/23/23 08:59 12.5 mg BID [facility] Administration Citalopram Hydrobromide 40 mg 02/23/22 09:00 02/25/22 08:14 Citalopram 40 Mg Tablet PO 02/23/23 08:59 40 mg DAILY [facility] Administration Heparin Sodium (Porcine) 5,000 unit 02/22/22 22:00 02/25/22 13:27 Heparin 5,000 Unit/Ml Vial SUBCUT 02/22/23 21:59 Not Given Q8HR [facility] Heparin Sodium (Porcine) 2,000 unit 02/23/22 10:59 02/25/22 11:06 Heparin 10,000 Unit/10 Ml Vial IV 02/23/23 10:58 2,000 unit PRN PRN Administration Dialysis Hydralazine HCl 50 mg 02/22/22 22:00 02/25/22 13:27 Hydralazine 50 Mg Tablet PO 02/22/23 21:59 Not Given TID [facility] Sodium Chloride 1,000 mls @ 0 mls/hr 02/23/22 10:59 02/25/22 11:08 0.9% Sodium Chloride 1,000 Ml MISCELLANE 02/23/23 10:58 Infused .Q0M PRN Infusion Dialysis As Directed Insulin Aspart 0 units 02/22/22 22:00 02/25/22 11:56 Insulin Aspart 300 Units/3 Ml Insuln.Pen SUBCUT 02/22/23 21:59 Not Given TID.WM.HS [facility] Protocol Melatonin 5 mg 02/22/22 21:17 Melatonin 5 Mg Tablet PO 02/22/23 21:16 QHS PRN Insomnia Nystatin 1 applic 02/23/22 02:43 02/24/22 17:03 Nystatin 100,000 Unit/Gram Powder 15 Gm Bottle TOPICAL 1 applic BID PRN Administration Skin Irritation Omeprazole 40 mg 02/23/22 09:00 02/25/22 08:14 Omeprazole 20 Mg Capsule.Dr PO 02/23/23 08:59 40 mg DAILY YESSENIA Administration Promethazine HCl 12.5 mg 02/22/22 21:17 02/25/22 13:52 Promethazine 25 Mg/Ml Vial IV-PUSH 02/22/23 21:16 12.5 mg Q6H PRN Administration Nausea And Vomiting Sodium Chloride 0 ml 02/22/22 18:26 02/24/22 08:29 Sodium Chloride 0.9 % 10 Ml Syringe IV-PUSH 02/22/23 18:25 10 ml PRN PRN Administration Flush Sodium Chloride 10 ml 02/22/22 21:17 02/25/22 13:52 Sodium Chloride 0.9 % 10 Ml Vial.Pf INJECTION 02/22/23 21:16 10 ml PRN PRN Administration Promethazine Dilution Sodium Chloride 0 ml 02/23/22 10:59 02/25/22 11:07 Sodium Chloride 0.9 % 10 Ml Syringe IV-PUSH 02/23/23 10:58 10 ml PRN PRN Administration Flush Spironolactone 12.5 mg 02/25/22 09:00 02/25/22 08:14 Spironolactone 12.5 Mg Tablet PO 02/25/23 08:59 12.5 mg DAILY YESSENIA Administration Temazepam 15 mg 02/22/22 23:16 02/24/22 21:28 Temazepam 15 Mg Capsule PO 08/21/22 23:15 15 mg QHS PRN Administration Sleep Tramadol HCl 50 mg 02/22/22 21:17 02/25/22 06:15 Tramadol 50 Mg Tablet PO 08/21/22 21:16 50 mg Q6H PRN Administration Pain Scale 4 - 7 Valsartan 80 mg 02/25/22 09:00 02/25/22 08:14 Valsartan 80 Mg Tablet PO 02/25/23 08:59 80 mg DAILY YESSENIA Administration A&P - Hospitalist Assessment/Plan (1) Acute hypoxemic respiratory failure: (2) DAVID (acute kidney injury): (3) Systolic and diastolic CHF, acute on chronic: (4) UTI (urinary tract infection): (5) Anemia: (6) HTN (hypertension): (7) Diabetes: (8) COPD (chronic obstructive pulmonary disease): Plan Assessment and plan Progression of CKD stage V and fluid overload requiring initiation of hemodialysis Uremia and uremic encephalopathy Hemodialysis initiated during this admission and is tolerating dialysis well. Plan was for possible discharge today however outpatient dialysis needs to be arranged. Medically stable for discharge once outpatient arrangements are completed. Other chronic stable problems include Hypertension: Discussed blood pressure management with radha Bernal with valsartan and spironolactone on discharge COPD GERD Diabetes mellitus type Time Spent With Patient (min): 30 Documented By: Marjorie Meehan DO 02/25/22 1719 Signed By: <Electronically signed by Marjorie Meehan DO> 02/25/22 1723 [facility] Work Phone: 1([phone]) 230-864601-16-2023 Progress note Author Narinder Toussaint [facility] February 25, 2022 10:08am Note Date/Time February 25, 2022 1 0:08am [facility] [address] [place] [address] Nephrology Progress Note Signed Patient: Cinthya Wilson MR#: [id number] : 1945 Acct:[id number] Age/Sex: 76 / F Adm Date: 3 Loc: Room: 2Z1846-9 Type: ADM IN Attending Dr: Marjorie Meehan DO Copies to: ~ Date of Service: 02/25/2022 Subjective Subjective Narrative: Mrs. 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 Patient is known to our service and she had historyof DAVID requiring peritoneal dialysis for almost a year before renal recovery with serum creatinine stabilized at 2.5 mg/dL. Recently, CKD progressed to stage IV/V with recurrent admissions for CHF and pleural effusion and shortness of breath. She was also discharged from the hospital on November 2021 for fluid overload that was treated with diuretics and furosemide was increased to 60 mg twice a day. Patient has left arm AV fistula that is ready to be used. She had a recent ultrasound that showed fistula is less than 6 mm below the skin with adequate blood flow. Patient presented to the ER yesterday again with manifestation of shortness of breath with volume overload and altered mental status. She had poor appetite with decreased oral intake. She has difficulty to sleep over the last few days. She has mild abdominal distention, edema and shortness of breath. She normallywill 3 L/min nasal cannula at home. She has a recurrent pleural effusion that required thoracocentesis. Evaluation in the ER showed mild wheezes with laboredbreathing. ER lab showed hemoglobin of 8.2. Chemistry was significant for mildacidosis 18.4, BUN up to 126, creatinine 5.19 mg/dL significant higher than baseline. BNP is elevated as well 3549. Urine analysis showed 10-19 WBCs with no bacteria. Culture is pending. Nasal swab was negative for influenza and COVID-19. Chest x-ray showed bibasilar groundglass opacities and cardiomegaly. CT scan ofthe head showed atrophy and chronic microvascular changes. EKG showed sinus rhythm with first-degree AV block. Interval history: Patient is being seen and examined on hemodialysis #2. She has advanced CKD currently ESRD. Shortness of breath is improving with ultrafiltration. Appetite did improve as well. Blood pressure 121/52. She is on 3 L/min O2 with pulse ox 97% Patient had a recurrent HFrEF per limited 2D echo yesterday showed EF 45% with dilated left atrium. RVSP 23.6. Exam Physical Exam Vital Signs: Temp Pulse Resp BP Pulse Ox O2 Del Method O2 Flow Rate 36.8 C 70 20 121/52 L 97 Nasal Cannula 3 02/25/22 09:25 02/25/22 09:33 02/25/22 09:25 02/25/22 09:33 02/25/22 09:25 02/25/22 09:25 02/25/22 09:25 Narrative: Constitutional: Looks better with improvement of shortness of breath with ultrafiltration. Mental function did improve as well HEENT: She has mild pallor. Mucous membranes are moist. Cardiovascular: RRR, normal S1-S2, no gallop or rub, No JVD Respiratory: Diminished breath sounds with no crackles or wheezes Gastrointestinal: Soft, non tender, positive bowel sounds. No palpable organs or masses Extremities: 2+ edema Skin: No rashes or bruises Musculoskeletal: No joints swellings or inflammation Neurology: Awake, alert, oriented ?3, No focal motor or sensory deficits. Tremors and asterixis has markedly improved with dialysis Psych: Normal mood and affect Vascular access: Right arm AV fistula with good thrill. Objective Intake and Output I&O: Intake & Output 02/22/22 02/23/22 02/24/22 02/25/22 23:59 23:59 23:59 23:59 Intake Total 900 / 900 970 / 970 200 / 200 Output Total 3401 / 3401 500 / 500 250 / 250 Balance -2501 / -2501 470 / 470 -50 / -50 Weight 77 kg 77.1 kg 74.9 kg 75.8 kg Meds and Allergies Meds: Active Medications Acetaminophen (Acetaminophen 325 Mg Tablet) 650 mg PO Q6HR PRN PRN Reason: Pain Scale 1 - 3 or fever Stop: 02/22/23 21:16 Hydrocodone Bitart/Acetaminophen (Hydrocodone/Acetaminophen 7.5-325mg Tablet) 1tab PO Q6H PRN PRN Reason: Pain Last Admin: 02/25/22 08:13 Dose: 1 tab Albuterol (Albuterol Neb 2.5 Mg/3 Ml Vial.Neb) 2.5 mg INHALATION QID PRN PRN Reason: Shortness Of Breath Stop: 02/22/23 21:25 Last Admin: 02/25/22 02:14 Dose: 2.5 mg Albuterol/Ipratropium (Ipratropium/Albuterol 0.5-3 Mg 3 Ml Ampul.Neb) 3 ml INHALATION QID.RESP YESSENIA Stop: 02/23/23 07:59 Last Admin: 02/25/22 08:23 Dose: 3 ml Aspirin (Aspirin 81 Mg Tablet.) 81 mg PO DAILY YESSENIA Stop: 02/23/23 08:59 Last Admin: 02/25/22 08:14 Dose: 81 mg Atorvastatin Calcium (Atorvastatin 40 Mg Tablet) 40 mg PO QPM YESSENIA Stop: 02/23/23 20:59 Last Admin: 02/24/22 21:28 Dose: 40 mg Calcium Acetate (Calcium Acetate 667 Mg Capsule) 667 mg PO TID.WITH.MEALS YESSENIA Stop: 02/24/23 16:59 Last Admin: 02/25/22 08:13 Dose: 667 mg Carvedilol (Carvedilol 12.5 Mg Tablet) 12.5 mg PO BID YESSENIA Stop: 02/23/23 08:59 Last Admin: 02/25/22 08:16 Dose: 12.5 mg Citalopram Hydrobromide (Citalopram 40 Mg Tablet) 40 mg PO DAILY [facility] Stop: 02/23/23 08:59 Last Admin: 02/25/22 08:14 Dose: 40 mg Heparin Sodium (Porcine) (Heparin 5,000 Unit/Ml Vial) 5,000 unit SUBCUT Q8HR YESSENIA Stop: 02/22/23 21:59 Last Admin: 02/25/22 06:06 Dose: 5,000 unit Heparin Sodium (Porcine) (Heparin 10,000 Unit/10 Ml Vial) 2,000 unit IV PRN PRN PRN Reason: Dialysis Stop: 02/23/23 10:58 Last Admin: 02/23/22 15:03 Dose: 2,000 unit Hydralazine HCl (Hydralazine 50 Mg Tablet) 50 mg PO TID [facility] Stop: 02/22/23 21:59 Last Admin: 02/25/22 08:14 Dose: 50 mg Sodium Chloride (0.9% Sodium Chloride 1,000 Ml) 1,000 mls @ 0 mls/hr MISCELLANE.Q0M PRN PRN Reason: Dialysis Stop: 02/23/23 10:58 Last Infusion: 02/23/22 15:06 Dose: Infused Insulin Aspart (Insulin Aspart 300 Units/3 Ml Insuln.Pen) 0 units SUBCUT TID.WM.HS [facility]; Protocol Stop: 02/22/23 21:59 Last Admin: 02/25/22 08:15 Dose: Not Given Melatonin (Melatonin 5 Mg Tablet) 5 mg PO QHS PRN PRN Reason: Insomnia Stop: 02/22/23 21:16 Nystatin (Nystatin 100,000 Unit/Gram Powder 15 Gm Bottle) 1 applic TOPICAL BID PRN PRN Reason: Skin Irritation Last Admin: 02/24/22 17:03 Dose: 1 applic Omeprazole (Omeprazole 20 Mg Capsule.Dr) 40 mg PO DAILY [facility] Stop: 02/23/23 08:59 Last Admin: 02/25/22 08:14 Dose: 40 mg Promethazine HCl (Promethazine 25 Mg/Ml Vial) 12.5 mg IV-PUSH Q6H PRN PRN Reason: Nausea And Vomiting Stop: 02/22/23 21:16 Sodium Chloride (Sodium Chloride 0.9 % 10 Ml Syringe) 0 ml IV-PUSH PRN PRN PRN Reason: Flush Stop: 02/22/23 18:25 Last Admin: 02/24/22 08:29 Dose: 10 ml Sodium Chloride (Sodium Chloride 0.9 % 10 Ml Vial.Pf) 10 ml INJECTION PRN PRN PRN Reason: Promethazine Dilution Stop: 02/22/23 21:16 Sodium Chloride (Sodium Chloride 0.9 % 10 Ml Syringe) 0 ml IV-PUSH PRN PRN PRN Reason: Flush Stop: 02/23/23 10:58 Spironolactone (Spironolactone 12.5 Mg Tablet) 12.5 mg PO DAILY YESSENIA Stop: 02/25/23 08:59 Last Admin: 02/25/22 08:14 Dose: 12.5 mg Temazepam (Temazepam 15 Mg Capsule) 15 mg PO QHS PRN PRN Reason: Sleep Stop: 08/21/22 23:15 Last Admin: 02/24/22 21:28 Dose: 15 mg Tramadol HCl (Tramadol 50 Mg Tablet) 50 mg PO Q6H PRN PRN Reason: Pain Scale 4 - 7 Stop: 08/21/22 21:16 Last Admin: 02/25/22 06:15 Dose: 50 mg Valsartan (Valsartan 80 Mg Tablet) 80 mg PO DAILY YESSENIA Stop: 02/25/23 08:59 Last Admin: 02/25/22 08:14 Dose: 80 mg Allergies lisinopril Allergy (Verified 02/22/22 18:27) Cough Results Labs 02/25/22 04:15 02/25/22 04:15 Labs: 02/24/22 02/25/22 10:01 04:15 BUN 74 H D 76 H Creatinine 3.84 H D 4.07 H Radiology Impressions Impressions - last 24 hours: Any impression(s) listed above is documentation that was entered by the reading physician into a diagnostic report(s) for Cinthya Wilson. I have reviewed the report(s) and am incorporating any findings in the treatment plan of this patient where applicable. A&P - Nephrology Assessment/Plan (1) ESRD (end stage renal disease): Assessment/Problem Details: Patient has progressive CKD currently reaching ESRD with recurrent admission forvolume overload.? Clinically the patient has poor oral intake, edema with weightgain and asterixis. Hemodialysis was started on 02/23. She has AV fistula (2) Anemia: Assessment/Problem Details: Patient has significant anemia with hemoglobin 7.4 g/dL. Ferritin more than 1000, situation slightly down to 17%. She has adequate B12 and folic acid. (3) Systolic and diastolic CHF, acute on chronic: Assessment/Problem Details: Patient has recurrent CHF with EF 45%. She had ultrafiltration with dialysis 2 L. She is on 3 L oxygen. (4) Diabetes: Assessment/Problem Details: He has a longstanding history of diabetes with multiple diabetic complications. (5) Primary hypertension: Assessment/Problem Details: Blood pressure controlled on furosemide, isosorbide and hydralazine mainly for CHF with low EF. Plan * Hemodialysis #2 today for 3 hours, 3K bath. Additional 2 L ultrafiltration as tolerated. * Start Aranesp 40 mcg weekly for anemia in chronic kidney disease. She has adequate iron stores, B12 and folic acid. * Continue calcium acetate 667 mg with each meal. * All medications were reviewed and will continue at the same. * Outpatient dialysis is being arranged at [facility] dialysis unit closer to her home. Documented By: Narinder Toussaint MD 02/25/22 1004 Signed By: <Electronically signed by MD Narinder Toussaint> 02/25/22 1003 [facility] Work Phone: 1(620) 654-273101-15-2023 Progress note Author Jamal Schaefer [facility] February 24, 2022 4:30pm Note Date/Time February 24, 2022 4 :27pm [facility] [address] [place] [address] Hospitalist Progress Note Signed with Addenda Patient: Cinthya Wilson MR#: [id number] : 1945 Acct:[id number] Age/Sex: 76 / F Adm Date: 3 Loc: 4N Room: 8I2761-9 Type: ADM IN Attending Dr: Jamal Schaefer MD Copies to: ~ ADDENDUM1 Echocardiogram indicates mildly reduced ejection fraction, consistent with HFmrEF. Patient is already on beta-madhu. We will add ARB in the aldosterone inhibitor. Cannot receive SGLT2 due to renal dysfunction. Referral to cardiologyas outpatient. Addendum Documented By: Jamal Schaefer MD 01/15/23 1630 Addendum Signed By: <Electronically signed by Jamal Schaefer MD> 02/24/221629 Date of Service: 02/24/2022 Subjective Subjective Narrative: Patient is feeling much better today. She is awake alert oriented x3. Asterixis is essentially resolved Heart is regular Lungs clear Abdomen soft Assessment and plan 1. Progression of CKD to stage V and fluid overload, uremia, uremic encephalopathy Hemodialysis initiated during this admission. Patient feeling much better today. Another session is planned for tomorrow. Anticipate discharge home tomorrow with continuation of outpatient hemodialysis. Other chronic stable problems include Hypertension COPD GERD Diabetes mellitus type Exam Physical Exam Vital Signs: Temp Pulse Resp BP Pulse Ox O2 Del Method O2 Flow Rate 98.1 F 66 17 107/58 L 99 Nasal Cannula 3 02/24/22 16:00 02/24/22 16:00 02/24/22 16:00 02/24/22 16:00 02/24/22 16:00 02/24/22 16:00 02/24/22 16:00 Objective Lab Results 02/24/22 10:01 02/24/22 10:01 Microbiology Results Microbiology 02/22/22 19:08 Urine - Clean-Voided Midstream Urine Culture - Final 75,000 colonies/ml mixed bacterial skin contaminants 2 Days 02/22/22 22:10 Blood - Right Antecubital Blood Culture - Preliminary No Growth 1 Day 02/22/22 21:53 Blood Blood Culture - Preliminary No Growth 1 Day Meds Allergies and Active Meds Allergies lisinopril Allergy (Verified 02/22/22 18:27) Cough Active Meds: Active Medications Generic Name Dose Route Start Last Admin Trade Name Freq PRN Reason Stop Dose Admin Acetaminophen 650 mg 02/22/22 21:17 Acetaminophen 325 Mg Tablet PO 02/22/23 21:16 Q6HR PRN Pain Scale 1 - 3 or fever Hydrocodone Bitart/Acetaminophen 1 tab 02/22/22 23:16 02/24/22 14:15 Hydrocodone/Acetaminophen 7.5-325mg Tablet PO 1 tab Q6H PRN Administration Pain Albuterol 2.5 mg 02/22/22 21:26 Albuterol Neb 2.5 Mg/3 Ml Vial.Neb INHALATION 02/22/23 21:25 QID PRN Shortness Of Breath Albuterol/Ipratropium 3 ml 02/23/22 08:00 02/24/22 13:47 Ipratropium/Albuterol 0.5-3 Mg 3 Ml Ampul.Neb INHALATION 02/23/23 07:59 3 ml QID.RESP YESSENIA Administration Aspirin 81 mg 02/23/22 09:00 02/24/22 08:27 Aspirin 81 Mg Tablet. PO 02/23/23 08:59 81 mg DAILY YESSENIA Administration Atorvastatin Calcium 40 mg 02/23/22 21:00 02/23/22 20:58 Atorvastatin 40 Mg Tablet PO 02/23/23 20:59 40 mg QPM YESSENIA Administration Calcium Acetate 667 mg 02/24/22 17:00 Calcium Acetate 667 Mg Capsule PO 02/24/23 16:59 TID.WITH.MEALS YESSENIA Carvedilol 12.5 mg 02/23/22 09:00 02/24/22 08:27 Carvedilol 12.5 Mg Tablet PO 02/23/23 08:59 12.5 mg BID YESSENIA Administration Citalopram Hydrobromide 40 mg 02/23/22 09:00 02/24/22 08:26 Citalopram 40 Mg Tablet PO 02/23/23 08:59 40 mg DAILY YESSENIA Administration Docusate Sodium 100 mg 02/23/22 09:00 02/24/22 08:27 Docusate 100 Mg Capsule PO 02/23/23 08:59 100 mg BID YESSENIA Administration Furosemide 80 mg 02/22/22 21:25 02/24/22 08:26 Furosemide 100 Mg/10 Ml Vial IV-PUSH 02/22/23 21:24 80 mg BID@0800,1600 YESSENIA Administration Heparin Sodium (Porcine) 5,000 unit 02/22/22 22:00 02/24/22 14:15 Heparin 5,000 Unit/Ml Vial SUBCUT 02/22/23 21:59 5,000 unit Q8HR YESSENIA Administration Heparin Sodium (Porcine) 2,000 unit 02/23/22 10:59 02/23/22 15:03 Heparin 10,000 Unit/10 Ml Vial IV 02/23/23 10:58 2,000 unit PRN PRN Administration Dialysis Hydralazine HCl 50 mg 02/22/22 22:00 02/24/22 14:15 Hydralazine 50 Mg Tablet PO 02/22/23 21:59 50 mg TID YESSENIA Administration Ceftriaxone Sodium 1 gm in 50 mls @ 100 mls/hr 02/23/22 22:00 02/23/22 21:36 Rocephin IV Infused Q24H YESSENIA Infusion Sodium Chloride 1,000 mls @ 0 mls/hr 02/23/22 10:59 02/23/22 15:06 0.9% Sodium Chloride 1,000 Ml MISCELLANE 02/23/23 10:58 Infused .Q0M PRN Infusion Dialysis As Directed Insulin Aspart 0 units 02/22/22 22:00 02/24/22 11:38 Insulin Aspart 300 Units/3 Ml Insuln.Pen SUBCUT 02/22/23 21:59 1 units TID.WM.HS YESSENIA Administration Protocol Isosorbide Mononitrate 60 mg 02/23/22 09:00 02/24/22 08:26 Isosorbide Mononitrate 24hr Er 60 Mg Tab.Er.24h PO 02/23/23 08:59 60 mg QAM YESSENIA Administration Melatonin 5 mg 02/22/22 21:17 Melatonin 5 Mg Tablet PO 02/22/23 21:16 QHS PRN Insomnia Nystatin 1 applic 02/23/22 02:43 Nystatin 100,000 Unit/Gram Powder 15 Gm Bottle TOPICAL BID PRN Skin Irritation Omeprazole 40 mg 02/23/22 09:00 02/24/22 08:26 Omeprazole 20 Mg Capsule.Dr PO 02/23/23 08:59 40 mg DAILY YESSENIA Administration Promethazine HCl 12.5 mg 02/22/22 21:17 Promethazine 25 Mg/Ml Vial IV-PUSH 02/22/23 21:16 Q6H PRN Nausea And Vomiting Sodium Bicarbonate 1,300 mg 02/23/22 09:00 02/24/22 14:15 Sodium Bicarbonate 650 Mg Tablet PO 02/23/23 08:59 1,300 mg TID YESSENIA Administration Sodium Chloride 0 ml 02/22/22 18:26 02/24/22 08:29 Sodium Chloride 0.9 % 10 Ml Syringe IV-PUSH 02/22/23 18:25 10 ml PRN PRN Administration Flush Sodium Chloride 10 ml 02/22/22 21:17 Sodium Chloride 0.9 % 10 Ml Vial.Pf INJECTION 02/22/23 21:16 PRN PRN Promethazine Dilution Sodium Chloride 0 ml 02/23/22 10:59 Sodium Chloride 0.9 % 10 Ml Syringe IV-PUSH 02/23/23 10:58 PRN PRN Flush Temazepam 15 mg 02/22/22 23:16 02/23/22 20:58 Temazepam 15 Mg Capsule PO 08/21/22 23:15 15 mg QHS PRN Administration Sleep Tramadol HCl 50 mg 02/22/22 21:17 Tramadol 50 Mg Tablet PO 08/21/22 21:16 Q6H PRN Pain Scale 4 - 7 Documented By: Jamal Schaefer MD 02/24/22 1625 Signed By: <Electronically signed by Jamal Schaefer MD> 02/24/22 162 [facility] Work Phone: [phone] 911-801201-15-2023 Progress note Author Narinder Toussaint [facility] February 24, 2022 2:20pm Note Date/Time February 24, 2022 2 :20pm [facility] [address] [place] [address] Nephrology Progress Note Signed Patient: Cinthya Wilson MR#: [id number] : 1945 Acct:[id number] Age/Sex: 76 / F Adm Date: 3 Loc: 4 Room: [address] [place] [address] Type: ADM IN Attending Dr: Jamal Schaefer MD Copies to: ~ Date of Service: 02/24/2022 Subjective Subjective Narrative: Mrs. 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 Patient is known to our service and she had historyof DAVID requiring peritoneal dialysis for almost a year before renal recovery with serum creatinine stabilized at 2.5 mg/dL. Recently, CKD progressed to stage IV/V with recurrent admissions for CHF and pleural effusion and shortness of breath. She was also discharged from the hospital on November 2021 for fluid overload that was treated with diuretics and furosemide was increased to 60 mg twice a day. Patient has left arm AV fistula that is ready to be used. She had a recent ultrasound that showed fistula is less than 6 mm below the skin with adequate blood flow. Patient presented to the ER yesterday again with manifestation of shortness of breath with volume overload and altered mental status. She had poor appetite with decreased oral intake. She has difficulty to sleep over the last few days. She has mild abdominal distention, edema and shortness of breath. She normallywill 3 L/min nasal cannula at home. She has a recurrent pleural effusion that required thoracocentesis. Evaluation in the ER showed mild wheezes with laboredbreathing. ER lab showed hemoglobin of 8.2. Chemistry was significant for mildacidosis 18.4, BUN up to 126, creatinine 5.19 mg/dL significant higher than baseline. BNP is elevated as well 3549. Urine analysis showed 10-19 WBCs with no bacteria. Culture is pending. Nasal swab was negative for influenza and COVID-19. Chest x-ray showed bibasilar groundglass opacities and cardiomegaly. CT scan ofthe head showed atrophy and chronic microvascular changes. EKG showed sinus rhythm with first-degree AV block. Interval history: Patient was advised to start dialysis. She already had AV fistula that is maturing of. Calcium with dialysis was done yesterday for 2 and half hour with 2 L ultrafiltration. Patient stated that she feels better. Appetite has improved and she had a good breakfast today. Tremors has improved as well. She is breathing more comfortably on 3 L/min nasal cannula. He denies any chest pain. Limited 2D echo yesterday showed EF 45% with dilated left atrium. RVSP 23.6. Exam Physical Exam Vital Signs: Temp Pulse Resp BP Pulse Ox O2 Del Method O2 Flow Rate 36.7 C 59 L 17 112/62 100 Nasal Cannula 3 02/24/22 11:50 02/24/22 11:50 02/24/22 11:50 02/24/22 11:50 02/24/22 11:50 02/24/22 11:50 02/24/22 11:50 Narrative: Constitutional: Looks ill with mild respiratory distress. She is mildly confused compared to her baseline HEENT: She has mild pallor. Mucous membranes are moist. Cardiovascular: RRR, normal S1-S2, no gallop or rub, No JVD Respiratory: Diminished breath sounds with no crackles or wheezes Gastrointestinal: Soft, non tender, positive bowel sounds. No palpable organs or masses Extremities: 2+ edema Skin: No rashes or bruises Musculoskeletal: No joints swellings or inflammation Neurology: Awake, alert, oriented ?3, No focal motor or sensory deficits. Patient has mild tremors and asterixis. Psych: Normal mood and affect Vascular access: Right arm AV fistula with good thrill. Objective Intake and Output I&O: Intake & Output 02/21/22 02/22/22 02/23/22 02/24/22 23:59 23:59 23:59 23:59 Intake Total 900 / 900 120 / 120 Output Total 3401 / 3401 250 / 250 Balance -2501 / -2501 -130 / -130 Weight 77 kg 77.1 kg 74.9 kg Meds and Allergies Meds: Active Medications Acetaminophen (Acetaminophen 325 Mg Tablet) 650 mg PO Q6HR PRN PRN Reason: Pain Scale 1 - 3 or fever Stop: 02/22/23 21:16 Hydrocodone Bitart/Acetaminophen (Hydrocodone/Acetaminophen 7.5-325mg Tablet) 1tab PO Q6H PRN PRN Reason: Pain Last Admin: 02/24/22 08:27 Dose: 1 tab Albuterol (Albuterol Neb 2.5 Mg/3 Ml Vial.Neb) 2.5 mg INHALATION QID PRN PRN Reason: Shortness Of Breath Stop: 02/22/23 21:25 Albuterol/Ipratropium (Ipratropium/Albuterol 0.5-3 Mg 3 Ml Ampul.Neb) 3 ml INHALATION QID.RESP YESSENIA Stop: 02/23/23 07:59 Last Admin: 02/24/22 13:47 Dose: 3 ml Aspirin (Aspirin 81 Mg Tablet.) 81 mg PO DAILY YESSENIA Stop: 02/23/23 08:59 Last Admin: 02/24/22 08:27 Dose: 81 mg Atorvastatin Calcium (Atorvastatin 40 Mg Tablet) 40 mg PO QPM YESSENIA Stop: 02/23/23 20:59 Last Admin: 02/23/22 20:58 Dose: 40 mg Carvedilol (Carvedilol 12.5 Mg Tablet) 12.5 mg PO BID YESSENIA Stop: 02/23/23 08:59 Last Admin: 02/24/22 08:27 Dose: 12.5 mg Citalopram Hydrobromide (Citalopram 40 Mg Tablet) 40 mg PO DAILY YESSENIA Stop: 02/23/23 08:59 Last Admin: 02/24/22 08:26 Dose: 40 mg Docusate Sodium (Docusate 100 Mg Capsule) 100 mg PO BID [facility] Stop: 02/23/23 08:59 Last Admin: 02/24/22 08:27 Dose: 100 mg Furosemide (Furosemide 100 Mg/10 Ml Vial) 80 mg IV-PUSH BID@0800,1600 [facility] Stop: 02/22/23 21:24 Last Admin: 02/24/22 08:26 Dose: 80 mg Heparin Sodium (Porcine) (Heparin 5,000 Unit/Ml Vial) 5,000 unit SUBCUT Q8HR [facility] Stop: 02/22/23 21:59 Last Admin: 02/24/22 05:26 Dose: 5,000 unit Heparin Sodium (Porcine) (Heparin 10,000 Unit/10 Ml Vial) 2,000 unit IV PRN PRN PRN Reason: Dialysis Stop: 02/23/23 10:58 Last Admin: 02/23/22 15:03 Dose: 2,000 unit Hydralazine HCl (Hydralazine 50 Mg Tablet) 50 mg PO TID [facility] Stop: 02/22/23 21:59 Last Admin: 02/24/22 08:27 Dose: 50 mg Ceftriaxone Sodium (Rocephin) 1 gm in 50 mls @ 100 mls/hr IV Q24H [facility] Last Infusion: 02/23/22 21:36 Dose: Infused Sodium Chloride (0.9% Sodium Chloride 1,000 Ml) 1,000 mls @ 0 mls/hr MISCELLANE.Q0M PRN PRN Reason: Dialysis Stop: 02/23/23 10:58 Last Infusion: 02/23/22 15:06 Dose: Infused Insulin Aspart (Insulin Aspart 300 Units/3 Ml Insuln.Pen) 0 units SUBCUT TID.WM.HS [facility]; Protocol Stop: 02/22/23 21:59 Last Admin: 02/24/22 11:38 Dose: 1 units Isosorbide Mononitrate (Isosorbide Mononitrate 24hr Er 60 Mg Tab.Er.24h) 60 mg PO QAM [facility] Stop: 02/23/23 08:59 Last Admin: 02/24/22 08:26 Dose: 60 mg Melatonin (Melatonin 5 Mg Tablet) 5 mg PO QHS PRN PRN Reason: Insomnia Stop: 02/22/23 21:16 Nystatin (Nystatin 100,000 Unit/Gram Powder 15 Gm Bottle) 1 applic TOPICAL BID PRN PRN Reason: Skin Irritation Omeprazole (Omeprazole 20 Mg Capsule.Dr) 40 mg PO DAILY YESSENIA Stop: 02/23/23 08:59 Last Admin: 02/24/22 08:26 Dose: 40 mg Promethazine HCl (Promethazine 25 Mg/Ml Vial) 12.5 mg IV-PUSH Q6H PRN PRN Reason: Nausea And Vomiting Stop: 02/22/23 21:16 Sodium Bicarbonate (Sodium Bicarbonate 650 Mg Tablet) 1,300 mg PO TID YESSENIA Stop: 02/23/23 08:59 Last Admin: 02/24/22 08:27 Dose: 1,300 mg Sodium Chloride (Sodium Chloride 0.9 % 10 Ml Syringe) 0 ml IV-PUSH PRN PRN PRN Reason: Flush Stop: 02/22/23 18:25 Last Admin: 02/24/22 08:29 Dose: 10 ml Sodium Chloride (Sodium Chloride 0.9 % 10 Ml Vial.Pf) 10 ml INJECTION PRN PRN PRN Reason: Promethazine Dilution Stop: 02/22/23 21:16 Sodium Chloride (Sodium Chloride 0.9 % 10 Ml Syringe) 0 ml IV-PUSH PRN PRN PRN Reason: Flush Stop: 02/23/23 10:58 Temazepam (Temazepam 15 Mg Capsule) 15 mg PO QHS PRN PRN Reason: Sleep Stop: 08/21/22 23:15 Last Admin: 02/23/22 20:58 Dose: 15 mg Tramadol HCl (Tramadol 50 Mg Tablet) 50 mg PO Q6H PRN PRN Reason: Pain Scale 4 - 7 Stop: 08/21/22 21:16 Allergies lisinopril Allergy (Verified 02/22/22 18:27) Cough Results Labs 02/24/22 10:01 02/24/22 10:01 Labs: 02/24/22 02/24/22 03:40 10:01 BUN 74 H D Creatinine 3.84 H D Phosphorus 5.8 H Iron Saturation 17.7 L Ferritin 1276.1 H Radiology Impressions Impressions - last 24 hours: Any impression(s) listed above is documentation that was entered by the reading physician into a diagnostic report(s) for Cinthya Wilson. I have reviewed the report(s) and am incorporating any findings in the treatment plan of this patient where applicable. A&P - Nephrology Assessment/Plan (1) ESRD (end stage renal disease): Assessment/Problem Details: Patient has progressive CKD currently reaching ESRD with recurrent admission forvolume overload.? Clinically the patient has poor oral intake, edema with weightgain and asterixis. Hemodialysis was started on 02/23. She has AV fistula (2) Anemia: Assessment/Problem Details: Patient has significant anemia with hemoglobin 7.4 g/dL. Ferritin more than 1000, situation slightly down to 17%. She has adequate B12 and folic acid. (3) Systolic and diastolic CHF, acute on chronic: Assessment/Problem Details: Patient has recurrent CHF with EF 45%. She had ultrafiltration with dialysis 2 L. She is on 3 L oxygen. (4) Diabetes: Assessment/Problem Details: He has a longstanding history of diabetes with multiple diabetic complications. (5) Primary hypertension: Assessment/Problem Details: Blood pressure controlled on furosemide, isosorbide and hydralazine mainly for CHF with low EF. Plan * Patient had first hemodialysis on 02/23 for 2 and half hour. Patient already feels better. Next hemodialysis will be done tomorrow for 3 hrs and then chronic dialysis will be 3 and half hours. We will continue to challenge dry weight as tolerated to improve respiratory status. * Patient is currently on ceftriaxone as urine analysis on admission showed WBCs. Urine culture showed no growth on Friday. * Hemoglobin did drop down to 7.4 g/dL. Ferritin more than 1000. Iron saturation 17%. She has adequate B12 and folic acid. We will start Aranesp 40 mcg weekly with dialysis. We will add IV ferric gluconate to 50 mg weekly with dialysis as well * Phosphorus is elevated with normal calcium. We will add calcium acetate 667 mg with each meal. * All medications were reviewed and will continue at the same. * Outpatient dialysis is being arranged at [facility] dialysis unit closer to her home. Documented By: Narinder Toussaint MD 02/24/22 1411 Signed By: <Electronically signed by MD Narinder Toussaint> 02/24/22 1420 [facility] Work Phone: [phone]) 503-511501-14-2023 Consult note Author Narinder Toussaint [facility] February 23, 2022 2:20pm Note Date/Time February 23, 2022 2 :20[facility] [address] [place] [address] Nephrology Consult Note Signed Patient: Cinthya Wilson MR#: [id number] : 1945 Acct:[id number] Age/Sex: 76 / F Adm Date: 3 Loc: 4N Room: [address] [place] [address] Type: ADM IN Attending Dr: Jamal Schaefer MD Copies to: MD Lily Garrett II, MD Essam B Elashi, MD~ Providers Consult Date: 02/23/22 Requesting Provider: Jamal Schaefer MD Primary Care Provider: Lily Aldrich II, MD HPI Reason for Consult: CKD stage V with elevated BUN, mental confusion and volume overload History of Present Illness: Mrs. 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 Patient is known to our service and she had historyof DAVID requiring peritoneal dialysis for almost a year before renal recovery with serum creatinine stabilized at 2.5 mg/dL. Recently, CKD progressed to stage IV/V with recurrent admissions for CHF and pleural effusion and shortness of breath. She was also discharged from the hospital on November 2021 for fluid overload that was treated with diuretics and furosemide was increased to 60 mg twice a day. Patient has left arm AV fistula that is ready to be used. She had a recent ultrasound that showed fistula is less than 6 mm below the skin with adequate blood flow. Patient presented to the ER yesterday again with manifestation of shortness of breath with volume overload and altered mental status. She had poor appetite with decreased oral intake. She has difficulty to sleep over the last few days. She has mild abdominal distention, edema and shortness of breath. She normallywill 3 L/min nasal cannula at home. She has a recurrent pleural effusion that required thoracocentesis. Evaluation in the ER showed mild wheezes with laboredbreathing. ER lab showed hemoglobin of 8.2. Chemistry was significant for mildacidosis 18.4, BUN up to 126, creatinine 5.19 mg/dL significant higher than baseline. BNP is elevated as well 3549. Urine analysis showed 10-19 WBCs with no bacteria. Culture is pending. Nasal swab was negative for influenza and COVID-19. Chest x-ray showed bibasilar groundglass opacities and cardiomegaly. CT scan ofthe head showed atrophy and chronic microvascular changes. EKG showed sinus rhythm with first-degree AV block. Review of Systems Review of Systems All other systems reviewed & are negative unless noted below or in HPI Constitutional Constitutional: Reports system reviewed and no additional complaints, except as documented Cardiovascular Cardiovascular: Reports system reviewed and no additional complaints, except as documented Respiratory Respiratory: Reports system reviewed and no additional complaints, except as documented Gastrointestinal Gastrointestinal: Reports system reviewed and no additional complaints, except as documented Neurologic Neurologic: Reports system reviewed and no additional complaints, except as documented Hematologic/Lymphatic Hematologic/Lymphatic: Reports system reviewed and no additional complaints, except as documented PMFSH Vaccinated for COVID-19?: Yes Medical History Anemia Anxiety Anxiety and depression Arthritis CAD (coronary artery disease) Cataract had bilateral PHACO Cervical spinal stenosis CHF (congestive heart failure) Chronic back pain Chronic kidney disease COPD (chronic obstructive pulmonary disease) Diabetes GERD (gastroesophageal reflux disease) HTN (hypertension) Hyperlipidemia Insomnia Irregular heart rhythm prior to stent placement per pt report Lumbosacral spondylolysis LVH (left ventricular hypertrophy) Neck pain with history of cervical spinal surgery Neuropathy right thigh and feet Pneumonia Polymyalgia Skin cancer mohs procedure for removal Sleep apnea Surgical History H/O heart artery stent History of appendectomy History of back surgery lumbar History of x2 History of carpal tunnel release bilateral History of coronary angioplasty with insertion of stent History of D&C History of shoulder surgery rt shoulder History of tonsillectomy History of total abdominal hysterectomy and bilateral salpingo-oophorectomy Family History Father Heart disease Cancer Mother Cancer Diabetes Social History Smoking Status: Never smoker Substance Use Type: None Social History Comments: adult son Meds Medications & Allergies Allergies lisinopril Allergy (Verified 02/22/22 18:27) Cough Home Medications atorvastatin 40 mg tablet 40 mg PO QPM 11/19/16 [History Confirmed 02/22/22] hydralazine 50 mg tablet 50 mg PO TID 11/19/16 [History Confirmed 02/22/22] isosorbide mononitrate 60 mg tablet,extended release 24 hr 60 mg PO QAM 11/19/16[History Confirmed 02/22/22] multivitamin 1 tab PO DAILY 09/07/19 [History Confirmed 02/22/22] omeprazole 40 mg capsule,delayed release 40 mg PO DAILY 09/07/19 [History Confirmed 02/22/22] aspirin 81 mg tablet,delayed release 81 mg PO DAILY 11/25/19 [History Confirmed 02/22/22] carvedilol 3.125 mg tablet 12.5 mg PO BID 11/25/19 [History Confirmed 02/22/22] cholecalciferol (vitamin D3) 25 mcg (1,000 unit) tablet (Vitamin D3) 25 mcg PO DAILY 11/25/19 [History Confirmed 02/22/22] citalopram 40 mg tablet 40 mg PO DAILY 11/25/19 [History Confirmed 02/22/22] umeclidinium 62.5 mcg-vilanterol 25 mcg/actuation powdr for inhalation (Anoro Ellipta) 1 inh inhalation DAILY 11/25/19 [History Confirmed 02/22/22] albuterol sulfate 0.63 mg/3 mL solution for nebulization 0.63 mg inhalation QID PRN SOB 06/26/21 [History Confirmed 02/22/22] hydrocodone 7.5 mg-acetaminophen 325 mg tablet 1 tab PO Q6H PRN Pain 11/16/21 [History Confirmed 02/22/22] dextrose 40 % oral gel (Glutose-15) 0.6 g PO PRN PRN Hypoglycemia #112.5 grams 11/20/21 [Rx Confirmed 02/22/22] docusate sodium 100 mg capsule 100 mg PO BID #60 caps 11/20/21 [Rx Confirmed 02/22/22] furosemide 40 mg tablet 60 mg PO BID #60 tabs 11/20/21 [Rx Confirmed 02/22/22] insulin aspart U-100 100 unit/mL (3 mL) subcutaneous pen (Novolog FlexPen U-100 Insulin aspart) 1 sliding scale dose subcut TID.WM.HS #15 mL 11/20/21 [Rx Confirmed 02/22/22] losartan 25 mg tablet 25 mg PO DAILY #30 tabs 11/20/21 [Rx Confirmed 02/22/22] pen needle, diabetic 32 gauge x 5/32 (BD Ultra-Fine Lexis Pen Needle) #100 ea 11/20/21 [Rx Confirmed 02/22/22] Active Medications: Active Medications Acetaminophen (Acetaminophen 325 Mg Tablet) 650 mg PO Q6HR PRN PRN Reason: Pain Scale 1 - 3 or fever Stop: 02/22/23 21:16 Hydrocodone Bitart/Acetaminophen (Hydrocodone/Acetaminophen 7.5-325mg Tablet) 1tab PO Q6H PRN PRN Reason: Pain Last Admin: 02/23/22 08:25 Dose: 1 tab Albuterol (Albuterol Neb 2.5 Mg/3 Ml Vial.Neb) 2.5 mg INHALATION QID PRN PRN Reason: Shortness Of Breath Stop: 02/22/23 21:25 Albuterol/Ipratropium (Ipratropium/Albuterol 0.5-3 Mg 3 Ml Ampul.Neb) 3 ml INHALATION QID.RESP YESSENIA Stop: 02/23/23 07:59 Last Admin: 02/23/22 12:51 Dose: 3 ml Aspirin (Aspirin 81 Mg Tablet.Dr) 81 mg PO DAILY YESSENIA Stop: 02/23/23 08:59 Last Admin: 02/23/22 08:25 Dose: 81 mg Atorvastatin Calcium (Atorvastatin 40 Mg Tablet) 40 mg PO QPM YESSENIA Stop: 02/23/23 20:59 Carvedilol (Carvedilol 12.5 Mg Tablet) 12.5 mg PO BID YESSENIA Stop: 02/23/23 08:59 Last Admin: 02/23/22 08:25 Dose: 12.5 mg Citalopram Hydrobromide (Citalopram 40 Mg Tablet) 40 mg PO DAILY YESSENIA Stop: 02/23/23 08:59 Last Admin: 02/23/22 08:25 Dose: 40 mg Docusate Sodium (Docusate 100 Mg Capsule) 100 mg PO BID YESSENIA Stop: 02/23/23 08:59 Last Admin: 02/23/22 08:25 Dose: 100 mg Furosemide (Furosemide 100 Mg/10 Ml Vial) 80 mg IV-PUSH BID@0800,1600 YESSENIA Stop: 02/22/23 21:24 Last Admin: 02/23/22 08:25 Dose: 80 mg Heparin Sodium (Porcine) (Heparin 5,000 Unit/Ml Vial) 5,000 unit SUBCUT Q8HR YESSENIA Stop: 02/22/23 21:59 Last Admin: 02/23/22 13:36 Dose: Not Given Heparin Sodium (Porcine) (Heparin 10,000 Unit/10 Ml Vial) 2,000 unit IV PRN PRN PRN Reason: Dialysis Stop: 02/23/23 10:58 Hydralazine HCl (Hydralazine 50 Mg Tablet) 50 mg PO TID [facility] Stop: 02/22/23 21:59 Last Admin: 02/23/22 13:36 Dose: Not Given Ceftriaxone Sodium (Rocephin) 1 gm in 50 mls @ 100 mls/hr IV Q24H [facility] Sodium Chloride (0.9% Sodium Chloride 1,000 Ml) 1,000 mls @ 0 mls/hr MISCELLANE.Q0M PRN PRN Reason: Dialysis Stop: 02/23/23 10:58 Insulin Aspart (Insulin Aspart 300 Units/3 Ml Insuln.Pen) 0 units SUBCUT TID..[facility]; Protocol Stop: 02/22/23 21:59 Last Admin: 02/23/22 13:35 Dose: Not Given Isosorbide Mononitrate (Isosorbide Mononitrate 24hr Er 60 Mg Tab.Er.24h) 60 mg PO QAM [facility] Stop: 02/23/23 08:59 Last Admin: 02/23/22 08:25 Dose: 60 mg Melatonin (Melatonin 5 Mg Tablet) 5 mg PO QHS PRN PRN Reason: Insomnia Stop: 02/22/23 21:16 Nystatin (Nystatin 100,000 Unit/Gram Powder 15 Gm Bottle) 1 applic TOPICAL BID PRN PRN Reason: Skin Irritation Omeprazole (Omeprazole 20 Mg Capsule.Dr) 40 mg PO DAILY [facility] Stop: 02/23/23 08:59 Last Admin: 02/23/22 08:25 Dose: 40 mg Promethazine HCl (Promethazine 25 Mg/Ml Vial) 12.5 mg IV-PUSH Q6H PRN PRN Reason: Nausea And Vomiting Stop: 02/22/23 21:16 Sodium Bicarbonate (Sodium Bicarbonate 650 Mg Tablet) 1,300 mg PO TID [facility] Stop: 02/23/23 08:59 Last Admin: 02/23/22 13:36 Dose: Not Given Sodium Chloride (Sodium Chloride 0.9 % 10 Ml Syringe) 0 ml IV-PUSH PRN PRN PRN Reason: Flush Stop: 02/22/23 18:25 Last Admin: 02/23/22 08:26 Dose: 10 ml Sodium Chloride (Sodium Chloride 0.9 % 10 Ml Vial.Pf) 10 ml INJECTION PRN PRN PRN Reason: Promethazine Dilution Stop: 02/22/23 21:16 Sodium Chloride (Sodium Chloride 0.9 % 10 Ml Syringe) 0 ml IV-PUSH PRN PRN PRN Reason: Flush Stop: 02/23/23 10:58 Temazepam (Temazepam 15 Mg Capsule) 15 mg PO QHS PRN PRN Reason: Sleep Stop: 08/21/22 23:15 Last Admin: 02/22/22 23:53 Dose: 15 mg Tramadol HCl (Tramadol 50 Mg Tablet) 50 mg PO Q6H PRN PRN Reason: Pain Scale 4 - 7 Stop: 08/21/22 21:16 Exam Physical Exam Vital Signs: Temp Pulse Resp BP Pulse Ox O2 Del Method O2 Flow Rate 36.8 C 55 L 16 90/51 L 99 Nasal Cannula 3 02/23/22 11:33 02/23/22 11:33 02/23/22 11:33 02/23/22 11:33 02/23/22 11:33 02/23/22 11:33 02/23/22 11:33 Narrative: Constitutional: Looks ill with mild respiratory distress. She is mildly confused compared to her baseline HEENT: She has mild pallor. Mucous membranes are moist. Cardiovascular: RRR, normal S1-S2, no gallop or rub, No JVD Respiratory: Diminished breath sounds with no crackles or wheezes Gastrointestinal: Soft, non tender, positive bowel sounds. No palpable organs or masses Extremities: 2+ edema Skin: No rashes or bruises Musculoskeletal: No joints swellings or inflammation Neurology: Awake, alert, oriented ?3, No focal motor or sensory deficits. Patient has mild tremors and asterixis. Psych: Normal mood and affect Vascular access: Right arm AV fistula with good thrill. Results Labs 02/23/22 04:25 02/23/22 04:25 Labs: 02/22/22 02/22/22 02/23/22 19:08 19:26 04:25 BUN 126 H 126 H Creatinine 5.19 H 5.11 H Urine Color Yellow Urine Appearance Clear Urine pH 5.0 Ur Specific [place] 1.015 Urine Protein 100 H Urine Glucose (UA) Normal Urine Ketones Negative Urine Occult Blood Negative Urine Nitrite Negative Ur Leukocyte Esterase 2+ H Urine RBC 0-1 Urine WBC 10-19 H Urine Bacteria None seen Radiology Impressions Impressions - last 24 hours: Impressions Chest X-Ray 02/22/22 18:50 IMPRESSION: MILD CARDIOMEGALY. MILD PARENCHYMAL CHANGES, DESCRIBED. Impression dictated by: Dianna Pedro M.D.02/22/2022 8:01 PM Dictation Location: [place] [address] 02/22/22 18:50 IMPRESSION: ATROPHY AND CHRONIC MICROVASCULAR CHANGES. NO ACUTE INTRACRANIAL ABNORMALITY. Impression dictated by: Dianna Pedro M.D.02/22/2022 8:06 PM Dictation Location: [place] [address] Any impression(s) listed above is documentation that was entered by the reading physician into a diagnostic report(s) for Cinthya Wilson. I have reviewed the report(s) and am incorporating any findings in the treatment plan of this patient where applicable. A&P - Nephrology Assessment/Plan (1) ESRD (end stage renal disease): Assessment/Problem Details: Patient has progressive CKD currently reaching ESRD with recurrent admission forvolume overload. Clinically the patient has poor oral intake, edema with weightgain and asterixis. (2) Anemia: Assessment/Problem Details: Patient has anemia in the setting of advanced CKD. She denies any bleeding (3) Systolic and diastolic CHF, acute on chronic: Assessment/Problem Details: Patient has systolic and diastolic CHF currently with volume overload related toCKD with edema and respiratory distress (4) Diabetes: Assessment/Problem Details: Patient has a history of diabetes with multiple diabetic complications (5) Primary hypertension: Assessment/Problem Details: Blood pressure is controlled. She is on hydralazine and furosemide. Plan * I had discussion with the patient today that she reached ESRD and requires dialysis for uremic symptoms and volume overload. She did agree to proceed. She has a functioning AV fistula that would be used for the first time today. We will start first hemodialysis for 2 and half hour, 2 L ultrafiltration as tolerated. Dialysis orders in the chart. * Patient is currently on ceftriaxone as urine analysis on admission showed WBCs * Hemoglobin did drop down to 7.4 g/dL. We will check iron stores, B12 and folic acid and replete as indicated. We will start erythropoietin as needed. * Check phosphorus, calcium intact PTH * Monitor daily intake and output and renal panel. We will continue all other medication at this point. Next hemodialysis will be on Friday alert the patient need another urgent dialysis tomorrow. * Will arrange for outpatient hemodialysis. We will check hepatitis profile I appreciate this consultation we will be happy to follow the patient with you during her hospital stay. Documented By: Narinder Toussaint MD 02/23/22 1406 Signed By: <Electronically signed by MD Narinder Toussaint> 02/23/22 1420 [facility] Work Phone: 1(624) 547-221501-14-2023 Progress note Author Jamal Schaefer [facility] February 23, 2022 9:43am Note Date/Time February 23, 2022 9 :43am [facility] [address] [place] [address] Hospitalist Progress Note Signed Patient: Cinthya Wilson MR#: [id number] : 1945 Acct:[id number] Age/Sex: 76 / F Adm Date: 3 Loc: Room: [address] [place] [address] Type: ADM IN Attending Dr: Jamal Schaefer MD Copies to: ~ Date of Service: 02/23/2022 Subjective Subjective Narrative: Patient is sitting in her chair. She is eating her breakfast. She is alert oriented x3 with no evidence of focal deficit. She does have asterixis however. Heart is regular Lungs are clear Abdomen soft benign Neurological as noted Exam Physical Exam Vital Signs: Temp Pulse Resp BP Pulse Ox O2 Del Method O2 Flow Rate 99.0 F 70 20 142/62 H 99 Nasal Cannula 3 02/23/22 08:00 02/23/22 09:12 02/23/22 09:12 02/23/22 08:00 02/23/22 08:00 02/23/22 08:00 02/23/22 08:00 Objective Lab Results 02/23/22 04:25 02/23/22 04:25 Microbiology Results Microbiology 02/22/22 19:08 Urine - Clean-Voided Midstream Urine Culture - Preliminary <9,000 colonies/ml mixed bacterial skin contaminants 1 Day 02/22/22 19:26 Nasopharyngeal SARS-CoV-2, Influenza & RSV (PCR) - Final Meds Allergies and Active Meds Allergies lisinopril Allergy (Verified 02/22/22 18:27) Cough Active Meds: Active Medications Generic Name Dose Route Start Last Admin Trade Name Christina PRN Reason Stop Dose Admin Acetaminophen 650 mg 02/22/22 21:17 Acetaminophen 325 Mg Tablet PO 02/22/23 21:16 Q6HR PRN Pain Scale 1 - 3 or fever Hydrocodone Bitart/Acetaminophen 1 tab 02/22/22 23:16 02/23/22 08:25 Hydrocodone/Acetaminophen 7.5-325mg Tablet PO 1 tab Q6H PRN Administration Pain Albuterol 2.5 mg 02/22/22 21:26 Albuterol Neb 2.5 Mg/3 Ml Vial.Neb INHALATION 02/22/23 21:25 QID PRN Shortness Of Breath Albuterol/Ipratropium 3 ml 02/23/22 08:00 02/23/22 09:12 Ipratropium/Albuterol 0.5-3 Mg 3 Ml Ampul.Neb INHALATION 02/23/23 07:59 3 ml QID.RESP YESSENIA Administration Aspirin 81 mg 02/23/22 09:00 02/23/22 08:25 Aspirin 81 Mg Tablet. PO 02/23/23 08:59 81 mg DAILY YESSENIA Administration Atorvastatin Calcium 40 mg 02/23/22 21:00 Atorvastatin 40 Mg Tablet PO 02/23/23 20:59 QPM YESSENIA Carvedilol 12.5 mg 02/23/22 09:00 02/23/22 08:25 Carvedilol 12.5 Mg Tablet PO 02/23/23 08:59 12.5 mg BID YESSENIA Administration Citalopram Hydrobromide 40 mg 02/23/22 09:00 02/23/22 08:25 Citalopram 40 Mg Tablet PO 02/23/23 08:59 40 mg DAILY YESSENIA Administration Docusate Sodium 100 mg 02/23/22 09:00 02/23/22 08:25 Docusate 100 Mg Capsule PO 02/23/23 08:59 100 mg BID YESSENIA Administration Furosemide 80 mg 02/22/22 21:25 02/23/22 08:25 Furosemide 100 Mg/10 Ml Vial IV-PUSH 02/22/23 21:24 80 mg BID@0800,1600 YESSENIA Administration Heparin Sodium (Porcine) 5,000 unit 02/22/22 22:00 02/23/22 05:26 Heparin 5,000 Unit/Ml Vial SUBCUT 02/22/23 21:59 5,000 unit Q8HR YESSENIA Administration Hydralazine HCl 50 mg 02/22/22 22:00 02/23/22 08:25 Hydralazine 50 Mg Tablet PO 02/22/23 21:59 50 mg TID YESSENIA Administration Ceftriaxone Sodium 1 gm in 50 mls @ 100 mls/hr 02/23/22 22:00 Rocephin IV Q24H YESSENIA Insulin Aspart 0 units 02/22/22 22:00 02/23/22 08:26 Insulin Aspart 300 Units/3 Ml Insuln.Pen SUBCUT 02/22/23 21:59 Not Given TID.WM.HS [facility] Protocol Isosorbide Mononitrate 60 mg 02/23/22 09:00 02/23/22 08:25 Isosorbide Mononitrate 24hr Er 60 Mg Tab.Er.24h PO 02/23/23 08:59 60 mg QAM YESSENIA Administration Melatonin 5 mg 02/22/22 21:17 Melatonin 5 Mg Tablet PO 02/22/23 21:16 QHS PRN Insomnia Nystatin 1 applic 02/23/22 02:43 Nystatin 100,000 Unit/Gram Powder 15 Gm Bottle TOPICAL BID PRN Skin Irritation Omeprazole 40 mg 02/23/22 09:00 02/23/22 08:25 Omeprazole 20 Mg Capsule.Dr PO 02/23/23 08:59 40 mg DAILY YESSENIA Administration Promethazine HCl 12.5 mg 02/22/22 21:17 Promethazine 25 Mg/Ml Vial IV-PUSH 02/22/23 21:16 Q6H PRN Nausea And Vomiting Sodium Bicarbonate 1,300 mg 02/23/22 09:00 02/23/22 08:25 Sodium Bicarbonate 650 Mg Tablet PO 02/23/23 08:59 1,300 mg TID YESSENIA Administration Sodium Chloride 0 ml 02/22/22 18:26 02/23/22 08:26 Sodium Chloride 0.9 % 10 Ml Syringe IV-PUSH 02/22/23 18:25 10 ml PRN PRN Administration Flush Sodium Chloride 10 ml 02/22/22 21:17 Sodium Chloride 0.9 % 10 Ml Vial.Pf INJECTION 02/22/23 21:16 PRN PRN Promethazine Dilution Temazepam 15 mg 02/22/22 23:16 02/22/22 23:53 Temazepam 15 Mg Capsule PO 08/21/22 23:15 15 mg QHS PRN Administration Sleep Tramadol HCl 50 mg 02/22/22 21:17 Tramadol 50 Mg Tablet PO 08/21/22 21:16 Q6H PRN Pain Scale 4 - 7 A&P - Hospitalist Assessment/Plan (1) Acute hypoxemic respiratory failure: (2) DAVID (acute kidney injury): (3) Systolic and diastolic CHF, acute on chronic: (4) UTI (urinary tract infection): (5) Anemia: (6) HTN (hypertension): (7) Diabetes: (8) COPD (chronic obstructive pulmonary disease): Plan Progression of CKD to stage V, with fluid overload, uremia and uremic encephalopathy Patient seen by nephrology. Will likely initiate hemodialysis Oral bicarbonate in the meantime Chronic conditions Anemia of chronic disease? Monitor H&H HTN?monitor, resume home meds?carvedilol, hydralazine COPD?Anoro Ellipta, nebulizers as needed GERD?resume home meds?omeprazole DVT PPx?SCDs, heparin CODE STATUS?DNR CCA without intubation as discussed with patient and daughter atbedside Documented By: Jamal Schaefer MD 02/23/22941 Signed By: <Electronically signed by Jamal Schaefer MD> 02/23/22942 [facility] Work Phone: 1(842) 256-758701-14-2023 History and physical note Author Gary Almaguer [facility] February 22, 2022 11:26pm Note Date/Time February 22, 2022 9 :35pm [facility] [address] [place] [address] Hospitalist H&P Signed Patient: Cinthya Wilson MR#: [id number] : 1945 Acct:[id number] Age/Sex: 76 / F Adm Date: 3 Loc: N Room: [address] [place] [address] Type: ADM IN Attending Dr: Gary Almaguer MD Copies to: Lily Aldrich II, MD Malika Ledesma, STOPER~ HPI DATE OF EXAMINATION: 02/22/22 CHIEF COMPLAINT: SOB, fluid overload, altered mental status HISTORY OF PRESENT ILLNESS: Ms. 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 Patient seen and evaluated in the emergency room, daughter at bedside. Patient is alertand oriented x3 at this time. She states that she has not been eating or sleeping well. She complains of abdominal distention with shortness of breath. She normally wears oxygen at 3 L nasal cannula at home, she denies turning up her oxygen. 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 She states that he scheduled her for a CAT scan on Friday and she is to follow-up with him next week. She states she has gained 5 pounds since Friday. She denies fever, chills, nausea and vomiting. She does complain of midsternal chest pain that radiates under her right breast, and shortness of breath. SPO2 is 100%, respirations are mildly labored. Audible wheezes noted when sitting up in bed. The daughter states the patient has been alert and oriented at home, however at times she stares off into space and her conversation does not make sense. ER work-up includes CBC with an H&H of 8.2/26. CMP with a sodium of 132, [id number], gap 18.6, BUN 126, creatinine 5.19, glucose 142. Troponin 82. BNP 3549. UA with leukocyte esterase, 10-19 WBCs, no bacteria seen?culture pending. Nasalswab negative for influenza and COVID. Chest x-ray shows bibasilar groundglass opacities, mild parenchymal changes and mild cardiomegaly. CT of the head showsatrophy and chronic microvascular changes, no acute intracranial abnormality. EKG sinus rhythm with a first-degree block. She will be admitted to the Medrelemetry floor under the care of the hospitalist team for further evaluation and treatment Review of Systems Review of Systems Review of systems: A 10 point review of systems was obtained, negative unless noted in the HPI or below. PMFSH Vaccinated for COVID-19?: Yes Medical History Anemia Anxiety Anxiety and depression Arthritis CAD (coronary artery disease) Cataract had bilateral PHACO Cervical spinal stenosis CHF (congestive heart failure) Chronic back pain Chronic kidney disease COPD (chronic obstructive pulmonary disease) Diabetes GERD (gastroesophageal reflux disease) HTN (hypertension) Hyperlipidemia Insomnia Irregular heart rhythm prior to stent placement per pt report Lumbosacral spondylolysis LVH (left ventricular hypertrophy) Neck pain with history of cervical spinal surgery Neuropathy right thigh and feet Pneumonia Polymyalgia Skin cancer mohs procedure for removal Sleep apnea Surgical History H/O heart artery stent History of appendectomy History of back surgery lumbar History of x2 History of carpal tunnel release bilateral History of coronary angioplasty with insertion of stent History of D&C History of shoulder surgery rt shoulder History of tonsillectomy History of total abdominal hysterectomy and bilateral salpingo-oophorectomy Family History Father Heart disease Cancer Mother Cancer Diabetes Social History Smoking Status: Never smoker Substance Use Type: None Social History Comments: adult son Meds Medications and Allergies Allergies lisinopril Allergy (Verified 02/22/22 18:27) Cough Home Medications atorvastatin 40 mg tablet 40 mg PO QPM 11/19/16 [History Confirmed 02/22/22] hydralazine 50 mg tablet 50 mg PO TID 11/19/16 [History Confirmed 02/22/22] isosorbide mononitrate 60 mg tablet,extended release 24 hr 60 mg PO QAM 11/19/16[History Confirmed 02/22/22] multivitamin 1 tab PO DAILY 09/07/19 [History Confirmed 02/22/22] omeprazole 40 mg capsule,delayed release 40 mg PO DAILY 09/07/19 [History Confirmed 02/22/22] aspirin 81 mg tablet,delayed release 81 mg PO DAILY 11/25/19 [History Confirmed 02/22/22] carvedilol 3.125 mg tablet 12.5 mg PO BID 10/15/20 [History Confirmed 02/22/22] cholecalciferol (vitamin D3) 25 mcg (1,000 unit) tablet (Vitamin D3) 25 mcg PO DAILY 11/25/19 [History Confirmed 02/22/22] citalopram 40 mg tablet 40 mg PO DAILY 11/25/19 [History Confirmed 02/22/22] umeclidinium 62.5 mcg-vilanterol 25 mcg/actuation powdr for inhalation (Anoro Ellipta) 1 inh inhalation DAILY 11/25/19 [History Confirmed 02/22/22] albuterol sulfate 0.63 mg/3 mL solution for nebulization 0.63 mg inhalation QID PRN SOB 06/26/21 [History Confirmed 02/22/22] hydrocodone 7.5 mg-acetaminophen 325 mg tablet 1 tab PO Q6H PRN Pain 11/16/21 [History Confirmed 02/22/22] dextrose 40 % oral gel (Glutose-15) 0.6 g PO PRN PRN Hypoglycemia #112.5 grams 11/20/21 [Rx Confirmed 02/22/22] docusate sodium 100 mg capsule 100 mg PO BID #60 caps 11/20/21 [Rx Confirmed 02/22/22] furosemide 40 mg tablet 60 mg PO BID #60 tabs 11/20/21 [Rx Confirmed 02/22/22] insulin aspart U-100 100 unit/mL (3 mL) subcutaneous pen (Novolog FlexPen U-100 Insulin aspart) 1 sliding scale dose subcut TID.WM.HS #15 mL 11/20/21 [Rx Confirmed 02/22/22] losartan 25 mg tablet 25 mg PO DAILY #30 tabs 11/20/21 [Rx Confirmed 02/22/22] pen needle, diabetic 32 gauge x 5/32 (BD Ultra-Fine Lexis Pen Needle) #100 ea 11/20/21 [Rx Confirmed 02/22/22] Exam Physical Exam Vital Signs: Temp Pulse Resp BP Pulse Ox O2 Del Method O2 Flow Rate 98.3 F 71 24 155/69 H 100 Nasal Cannula 3 02/22/22 18:38 02/22/22 20:12 02/22/22 20:12 02/22/22 20:12 02/22/22 20:12 02/22/22 20:12 02/22/22 20:12 Narrative: CONST- Appears well -developed and well nourished. Obese HEAD - Normocephalic and atraumatic EENT-Sclera nonicteric, conjunctive are non-erythemic, moist oral mucosa, pharynx clear NECK-Supple, no cervical lymphadenopathy CARDIAC-normal rate, regular rhythm, S1 & S2. Murmur PULM-diminished to R posterior base, crackles bilateral anterior, audible wheezewith activity, 3L NC, no accessory muscle use, dry cough ABD - Softly distended, nontender EXTREM-no edema BLE calves, nontender SKIN- W/D good turgor MS- MAEX4 spontaneously with equal with equal strength NEURO- A&Ox3 speech clear and tongue midline, equal facial symmetry, no focal motor deficits PSYCH-Mood, affect, and behavior appropriate Results Lab Results Labs: Laboratory Last Values Corrected WBC 6.8 X10E3/uL (3.8-11.6) 02/22/22 19: Uncorrected WBC Count 6.8 x10E3/uL (3.8-11.6) 02/22/22 19: RBC 2.77 X10E6/uL (3.60-5.00) L 02/22/22 19: Hgb 8.2 g/dL (11.8-15.4) L 02/22/22 19: Hct 26.0 % (34.0-46.4) L 02/22/22 19: MCV 94.0 fl (80-100) 02/22/22 19: MCH 29.6 pg (24.7-34.3) 02/22/22 19: MCHC 31.5 g/dL (32.0-35.0) L 02/22/22 19: RDW 16.2 % (11.9-15.3) H 02/22/22 19: Plt Count 240 x10E3/uL (150-450) 02/22/22 19: MPV 7.6 fl (6.3-10.7) 02/22/22 19: Neut % (Auto) 71.8 % (.) 02/22/22 19: Lymph % (Auto) 12.3 % (.) 02/22/22 19: Mchenry % (Auto) 11.5 % (.) 02/22/22 19: Eos % (Auto) 3.7 % (.) 02/22/22 19: Baso % (Auto) 0.7 % (.) 02/22/22 19: Nucleat RBC Rel Count 0.1 /100 WBC (0-0.5) 02/22/22 19: Neut # (Auto) 4.9 x10E3/uL (1.8-7.7) 02/22/22 19: Lymph # (Auto) 0.8 x10E3/uL (1.00-4.8) L 02/22/22 19: Mchenry # (Auto) 0.8 x10E3/uL (0.0-0.8) 02/22/22 19: Eos # (Auto) 0.2 x10E3/uL (0.0-0.45) 02/22/22 19: Baso # (Auto) 0.0 x10E3/uL (0.0-0.2) 02/22/22 19: Monocyte Dist Width 18.44 % (0.00-20.00) 02/22/22 19: PT 15.6 Seconds (9.0-12.9) H 02/22/22 19: INR 1.4 02/22/22 19: APTT 36.0 Seconds (25.1-36.5) 02/22/22 19: PHA Creatinine Clear 9.34 02/22/22 19: Sodium 132 mmol/L (136-146) L 02/22/22 19: Potassium 5.0 mmol/L (3.5-5.1) 02/22/22: Chloride 100 mmol/L (95-114) 02/22/22 19: Carbon Dioxide 18.4 mmol/L (22.0-30.0) L 02/22/22 19: Anion Gap 18.6 mEq/L (6.0-15.0) H 02/22/22 19: BUN 126 mg/dL (9-23) H 02/22/22 19: Creatinine 5.19 mg/dL (0.44-1.03) H 02/22/22 19: Est GFR ( Amer) 10 mL/Min 02/22/22 19: Est GFR (Non-Af Amer) 8 mL/Min 02/22/22: Glucose 142 mg/dL (70-100) H 02/22/22 19: Calcium 9.4 mg/dL (8.2-10.2) 02/22/22 19: Total Creatine Kinase 54 U/L (22-269) 02/22/22 19: CK-MB (CK-2) 4.5 ng/mL (0.6-6.3) 02/22/22: CK-MB (CK-2) Rel Index 8.3 % (0.00-2.50) H 02/22/22 19: Troponin I High Sens 82 pg/mL (0-15) H* 02/22/22: B-Natriuretic Peptide 3549.0 pg/mL (5-100) H 02/22/22 19: Urine Color Yellow (Yellow) 02/22/22 19:08 Urine Appearance Clear (Clear) 02/22/22 19: Urine pH 5.0 (5.0-9.0) 02/22/22 19: Ur Specific [place] 1.015 (1.001-1.030) 02/22/22 19:08 Urine Protein 100 mg/dL (Negative) H 02/22/22 19:08 Urine Glucose (UA) Normal mg/dL (Normal) 02/22/22 19:08 Urine Ketones Negative (Negative) 02/22/22 19:08 Urine Occult Blood Negative (Negative) 02/22/22 19:08 Urine Nitrite Negative (Negative) 02/22/22 19: Urine Bilirubin Negative (Negative) 02/22/22 19:08 Urine Urobilinogen Normal mg/dL (Normal) 02/22/22 19:08 Ur Leukocyte Esterase 2+ (Negative) H 02/22/22 19:08 Urine RBC 0-1 /HPF (0-4) 02/22/22 19:08 Urine WBC 10-19 /HPF (0-4) H 02/22/22 19:08 Ur Squamous Epith Cells 3-4 /HPF (0-2) H 02/22/22 19:08 Urine Bacteria None seen (None Seen) 02/22/22 19:08 Hyaline Casts 0-8 /LPF (0-8) 02/22/22 19:08 Urine Yeast None seen /HPF (None Seen) 02/22/22 19:08 SARS-CoV-2 Rap RNA(RT-PCR) Negative (Negative) 02/22/22 19:26 Microbiology Results Micro: Microbiology - Results from entire visit 02/22/22 19:26 Nasopharyngeal SARS-CoV-2, Influenza & RSV (PCR) - Final A&P - Hospitalist Assessment/Plan (1) Acute hypoxemic respiratory failure: (2) DAVID (acute kidney injury): (3) Systolic and diastolic CHF, acute on chronic: (4) UTI (urinary tract infection): (5) Anemia: (6) HTN (hypertension): (7) Diabetes: (8) COPD (chronic obstructive pulmonary disease): Plan Acute hypoxemic respiratory failure Acute on chronic combined heart failure Bilateral pleural effusion Elevated troponin ? Telemetry ? Oxygen as needed?keep SPO2 greater than 90% ? Furosemide IV twice daily ? Hobson catheter for accurate I&O ? Trend troponin ? Resume home meds?isosorbide mononitrate, hold ARB Acute kidney injury superimposed on CKD stage IV UTI?culture pending, continue ceftriaxone from ER - Patient has left UE fistula ? Nephrology consult for the possible need of dialysis ? Monitor kidney function Chronic conditions Anemia of chronic disease? Monitor H&H HTN?monitor, resume home meds?carvedilol, hydralazine COPD?Anoro Ellipta, nebulizers as needed GERD?resume home meds?omeprazole DVT PPx?SCDs, heparin CODE STATUS?DNR CCA without intubation as discussed with patient and daughter atbedside Attending Physician Attestation: I personally reviewed the history, performed the chow elements of the exam, formulated the plan of care and confirmed the written note. I agree with the findings and plan as documented in this note and have edited it if needed to reflect my findings and plan. Gary Strange MD Documented By: Malika Arreaga APRN 02/22/222130 Signed By: <Electronically signed by NELI Arreaga> 02/22/222301 <Electronically signed by Gary Almaguer MD> 02/22/22 [address] [facility] Work Phone: 1(694) 451-711912-30-2022 Evaluation note* Encounter Date Diagnosis Assessment Notes Treatment Notes Treatment Clinical Notes Jan, Anemia associated with chronic renal failure (ICD-10 - D63.1) Jan, CKD (chronic kidney disease) stage 4, GFR 15-29 ml/min (ICD-10 - N18.4) due to diabetes milieus type 2, GFR 20 ml/min/1.73 m2 surface area [employer] Other 12-08-2022 Evaluation note* Encounter Date Diagnosis Assessment Notes Treatment Notes Treatment Clinical Notes Jan, AV fistula (ICD-10 - I77.0) We reviewed today's graft flow scan of the left arm AV fistula which looks great. Size throughout the fistula ranges from 0.54 to 1.3 cm in size. The fistula is less than 6 mm from the skin plane and velocities throughout the fistula run from the 527 to 1555 mL/min. She is not currently in need of hemodialysis but if she were to require starting dialysis in the near future, I believe this fistula is ready for cannulation process. She is reminded of no blood draws, IVs, or blood pressure on her access arm. She states understanding of all discussion, agrees with this plan, and denies any questions. We will continue to follow her on a routine basis. She knows to call us with any issues or concerns. [employer] Other 11-10-2022 Evaluation note* Encounter Date Diagnosis Assessment Notes Treatment Notes Treatment Clinical Notes Dec, AV fistula (ICD-10 - I77.0) This patient has not yet on dialysis. I am pleased with the result of the procedure for rerouting blood flow through 1 main channel with the Amplatzer plug. He looks great. We will see her back in 4 to 6 weeks with a graft flow scan. I explained to the patient is up to her ethanol quality leader if and when she starts dialysis. 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 Patient has history of cardiac disease SCr this visit 3.0 mg/dl GFR 15 ML/MIN. Volume is well controlled. Continue Lasix 6 mg p.o. bid Left upper extremity fistula was created in June 2021. Patient is going to follow with VS next month There is no urgent need of hemodialysis I will follow up with the patient in 2 months Nov, Anemia associated wi th chronic renal failure (ICD-10 - D63.1) Hemoglobin dropped to 9.0 g/dl. Iron Saat 20% Will arrange for loading dose of Venofer No need for STEPHIE. I will check iron storage study next visit Nov, Hematuria (ICD-10 - R31.9) There is no recurrence of hematuria. This was likely related to UTI. Now resolved Nov, CHF (congestive hear t failure) (ICD-10 - I50.9) patient was admitted multiple time the last 2-3 months with fluid overload and recurrent Right side plueral effusion. currently on lasix 60 mg PO daily . no peripheral edema. Patient is going to follow with pulmonary clinic next month. She has history of coronary artery disease. Follows with cardiology clinic in [facility] continue same dose of Lasix Nov, Hypertensive chronic kidney disease with stage 1 through stage 4 chronic kidney disease, or unspecified chronic kidney disease (ICD-10 - I12.9) diastolic BP is slightly low. i asked the patient to reduce hydralazine to BID. Nov, Edema (ICD-10 - R60.9) No ed denice. 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 Aldrich. She said that hemoglobin A1c remains below 7% Nov, Mixed hyperlipidemia (ICD-10 - E78.2) Follow-up with Dr. Edwards. [employer] Other 10-11-2022 Discharge summary Author Annette Tenorio [facility] November 20, 2021 12:43pm Note Date/Time November 20, 2021 1 2:26pm [facility] [address] [place] [address] Discharge Summary Signed Patient: Cinthya Wilson MR#: [id number] : 1945 Acct:[id number] Age/Sex: 76 / F Adm Date: 2 Loc: 4 Room: 6J7447-[address]: Annette Tenorio MD Copies to: MD Annette Bourgeois II, MD~ Providers Date of Admission: 11/16/21 Date of Discharge: 11/20/21 Discharging Provider: Annette Tenorio Primary Care Provider: Lily Aldrich Consults: 11/16/21 09:49 Consult to Nephrology Routine Consult to Pulmonology Routine 11/16/21 13:15 Consult to Occupational Therapy Routine Consult to Occupational Therapy Routine Consult to Physical Therapy Routine Consult to Physical Therapy Routine 11/17/21 11:17 Consult to Vascular Surgery Routine 11/17/21 16:36 Consult to Dietitian Routine 11/19/21 11:19 Consult to Orthopedic Surgery Routine Discharge Diagnosis (1) Chronic kidney disease, stage 5: (2) Hyponatremia: (3) Fluid overload: (4) Primary hypertension: (5) Anemia: (6) Systolic and diastolic CHF, acute on chronic: (7) Cardiomyopathy: (8) Multifactorial functional impairment: (9) CAD (coronary artery disease): (10) Right shoulder pain: (11) Bilateral pleural effusion: Final Diagnosis Final Discharge Diagnosis: As listed above and others at that are not listed. I may or may not have addressed all of pt medical needs and issues. Additional work up, investigation, treatment, and consultation will be completed at a latertime or date as in or out pt. Portion of care is provided by other providers andspecialists. Please refer to their notes for details. I appreciate nephrology and vascular input and recommendation. I followed their guidance [] Summary Hospital Course Hospital course: Patient is a 76-year-old female with a past medical history of chronic obstructive pulmonary disease, combined systolic and diastolic congestive heart failure, diabetes mellitus type 2, and chronic kidney disease stage V who was admitted to the hospital 4 days ago from an outside hospital emergency room with progressive dyspnea. Patient had a chest x-ray performed on day of admission that showed a large right-sided pleural effusion. Patient reported this was a recurrent pleural effusion that was aspirated approximately 1 week before admission to the hospital. At this hospital, radiology was able to aspirate approximately 1.5 L of transudative fluid. Post procedure x-ray showed a significantly decreased right pleural effusion with no evidence of pneumothorax. Nephrology was consulted and examined the patient who follows in the renal clinic with Dr. Fofana. Nephrology stated they believe the patient has reached end- stage renal disease due to frequent admission to the hospital for fluid overload and recurrent pleural effusion and need for thoracentesis 3 times in a month. Patient has a left lower arm AV fistula from September but hemodialysis was not able to start in the hospital due to fistula malfunction with difficult cannulation. Vascular surgery was consulted who performed diagnostic fistulogram who noted the body of the fistula is patent but there were 2 parallel systems to the cephalic vein. A balloon was placed in the large collateral branch to improve the flow in the main trunk of the cephalic vein. A good thrill in the fistula and improved flow through the cephalic vein was noted following the procedure. Nephrology stated the patient can follow-up with Dr. Fofana as an outpatient as there is no urgency for dialysis due to patient having a normal acid-base balance, electrolytes, and denies any uremic symptoms. Patient also continues to respond to diuretics. Patient's oxygen saturation has remained in the mid-upper 90s throughout hospital stay but has occasionally required additional oxygen via nasal cannula, especially at night. Patient states that she does not use oxygen at home. We will request oxygen walk study to determine if the patient qualifies for oxygen. Patient also presented with elevated troponin but denied chest pain and had no active angina. High-sensitivity troponin trended downward throughout hospital stay. ECG was performed and showed no evidence of acute ST change. Transthoracic echocardiogram was also performed and showed a mild decrease ejection fraction of 45 to 50% and moderate diastolic dysfunction. There was no clinical evidence to suggest acute coronary syndrome and patient is to follow-up with her dental office receptionist in the outpatient setting. Orthopedic consult was also placed as patient was complaining of right shoulder pain. Patient reports she had a fall on her right shoulder in October and had a fracture. X-ray of the right shoulder showed a total shoulder arthroplasty and all hardware appeared to be intact. No fractures were noted but there was moderate degenerative changes in the right AC joint. Orthopedic team did not recommend any additional inpatient work-up or therapeutic intervention He recommended patient to follow- up with her orthopedic doctor Dr. Wyman Patient has been working with physical and occupational therapy while in the hospital. Patient is recommended to go back to skilled care for ongoing needed physical therapy and rehabilitation. Patient understood my recommendation very well. Patient and her daughter are in disagreement. They want to go home. Patient and her daughter stated that patient has adequate and appropriate help at home 02/09. They understood that going home essentially put the patient at risk having unnoticed or decompensation of condition that may lead to medical deterioration. Without appropriate physical therapy the patient may continue to decline functionally. Patient and her daughter insist on going go home only. At this time I will have any other option but to respect their wishes and discharge patient home with home health care. Patient has multiple complex medical issues as listed above and others that are not listed. All appear to be stable. I do not have any clear or strong clinical justification to extend inpatient hospitalization against her will and desire to go home and against vascular and nephrology clearance. Patient however will require close and the frequent monitoring as well as additional work-up, investigation and therapeutic intervention that could take place from this point on post discharge. That is to prevent relapse, decompensation, rehospitalization and other medical implications. To accomplish the aforementioned outpatient for monitoring I requested home care services. Home of care nurses to monitor condition and collaborate care with the PCP and nephrology as well as vascular, orthopedic and pulmonary.. Time Spent with Patient Time spent providing/coordinating discharge services (# min): 65 Surgeries and Procedures Operation Date: 11/19/21 08:35 Actual Procedures p IR Left Fistulagram W/TLA & Embolization(Left) - David South MD Diagnostic Studies Completed and Pending Studies Pending studies at discharge: 11/21/21 05:00 Basic Metabolic Panel [CHEM] IN AM Complete Blood Count Auto Diff IN AM 11/22/21 05:00 Basic Metabolic Panel [CHEM] IN AM Complete Blood Count Auto Diff IN AM 11/23/21 05:00 Basic Metabolic Panel [CHEM] IN AM Complete Blood Count Auto Diff IN AM 11/24/21 05:00 Basic Metabolic Panel [CHEM] IN AM Complete Blood Count Auto Diff IN AM 11/25/21 05:00 Basic Metabolic Panel [CHEM] IN AM Complete Blood Count Auto Diff IN AM 11/26/21 05:00 Basic Metabolic Panel [CHEM] IN AM Complete Blood Count Auto Diff IN AM Preliminary micro results at discharge 11/16/21 15:15 Acid Fast Bacilli Culture & Smear - Pending Thoracentesis Fluid Mycology Culture - Pending Fungal Culture Result 1 - Pending Labs on day of discharge: 11/20/21 05:32: PHA Creatinine Clear 15.77, Sodium 132 L, Potassium 3.9, Chloride 98, Carbon Dioxide 24.3, Anion Gap 13.6, BUN 69 H, Creatinine 3.04 H, Est GFR ( Amer) 18, Est GFR (Non-Af Amer) 15, Glucose 133 H, Calcium 8.8 11/20/21 05:32: Corrected WBC 8.2, Uncorrected WBC Count 8.2, RBC 2.96 L, Hgb 9.0 L, Hct 26.7 L, MCV 90.2, MCH 30.3, MCHC 33.6, RDW 15.2, Plt Count 260, MPV 7.8, Neut % (Auto) 70.9, Lymph % (Auto) 12.9, Mchenry % (Auto) 14.1, Eos % (Auto) 1.6, Baso % (Auto) 0.5, Neut # (Auto) 5.8, Lymph # (Auto) 1.1, [place] # (Auto) 1.2 H, Eos # (Auto) 0.1, Baso # (Auto) 0.0, Nucleated RBC % (auto) 0.0 11/19/21 21:23: POC Glucose 160 11/19/21 16:59: POC Glucose 209, POC Glucose Comment Glu2: cleaned meter 11/19/21 07:37: POC Glucose 168 Exam Physical Exam Vital Signs: Temp Pulse Resp BP Pulse Ox O2 Del Method O2 Flow Rate 98.1 F 56 L 16 129/55 L 97 Nasal Cannula 2 11/20/21 04:00 11/20/21 04:00 11/20/21 04:00 11/20/21 04:00 11/20/21 04:00 11/20/21 04:00 11/20/21 04:00 FiO2 2 11/17/21 07:40 Narrative: [pt is awake and alert. oriented to place, time and person. Patient is sitting up in chair very comfortable. She wants to go home. She does not go to custodial. HEENT: [place] conjunctiva and NL buccal mucosa Neck: Supple, no tenderness Endocrine: No Thyromegaly. Vascular: No JVD or carotid bruit. Lymphatic: No cervical lymphadenopathy. Chest: CTA no DTP. Heart RRR, no extra sound or murmur. Abd: Soft, no tenderness, no rebound and no rigidity. Increase abd girth therefore clinically I could not exclude the possibility of intra abd mass or organomegaly. LE: No cyanosis or clubbing, no varices or edema. Neuro: A A O. Nl speech, comprehension and attention. Nl and symetrical motor and tone examination through out. []] Discharge Plan Discharge Plan Patient Disposition: Home Health [facility] Diet: Renal Additional Instructions: Home health to manage: - PT/OT to eval and treat - Monitor VS routine - Hx. HTN - Urinary assessments - Hobson catheter discontinued 11/20/21 - please monitor voiding - Respiratory assessments - Dx. CHF, COPD, recurrent pleural effusion with multiple thoracentesises - Please monitor left arm fistula - fistulogram done 11/19/21 - Orthopedic assessments - Dx. Right AC joint sprain -- Activity as tolerated - Monitor blood sugars - Dx. DM - Routine skin assessments/care - Wound care: -- Every 2 days - Right buttock stage 3 pressure ulcer- Clean with Vashe and pat dry. Apply Therahoney gel to the wound bed. Top with Polymem AG and secure with opsite. -- Every 2 days - Left ischium stage 2 pressure ulcer- Clean with Vashe and pat dry. Top with Polymem AG and secure with opsite. - Dietary recommendations: -- Boost pudding twice daily with meals - Labs: -- BMP to be drawn weekly x 4 weeks - results to Nephrology, Dr. Little Check your blood sugar 3 times a day before meals. Document these numbers on a blood glucose log and bring them with you to your follow-up appointment with your primary care doctor. Communicate with your primary care doctor or tax services specialist if your blood sugar is under 100 or above 300 on 2 consecutive checks. Communicate with your primary care doctor or tax services specialist if you have any questions about your diabetes medications. Signs of a low blood sugar include sweating, racing heart, dizziness and/or weakness. Check your blood sugar if you have any of the symptoms. I may not have addressed or treated all of your medical illnesses or the abnormal blood work or imaging studies during this hospitalization. Please ask your primary care provider to obtain [facility] records entirely to follow up on all of the abnormal physical, laboratory, and imaging findings that I have not addressed. Please return back to the emergency room or seek medical attention if your symptoms worsen or return. Discharging you from [facility] does not mean that your medical care ends here and now. You may still need additional monitoring, work up, investigation, and treatment plan to be handled from this point on by out patient providers including your primary care provider and specialists. For any medication question, please contact your retail pharmacist or your primary care provider. Thank you. Prescriptions: New dextrose [Glutose-15] 40 % Gel 0.6 g PO PRN PRN (Reason: Hypoglycemia) Qty: 112.5 0RF docusate sodium 100 mg Capsule 100 mg PO BID Qty: 60 0RF insulin aspart U-100 [Novolog Flexpen U-100 Insulin] 100 unit/mL (3 mL) Insulin Pen 1 sliding scale dose subcut TID.WM.HS Qty: 15 0RF losartan 25 mg tablet 25 mg PO DAILY Qty: 30 1RF Continued multivitamin Tablet 1 tab PO DAILY omeprazole 40 mg Capsule,Delayed Release(Dr/Ec) 40 mg PO DAILY docusate sodium 250 mg Capsule 250 mg PO DAILY hydrocodone-acetaminophen 7.5-325 mg tablet 1 tab PO Q6H PRN (Reason: Pain) Label Comments: TAKE 1 TABLET BY MOUTH EVERY 6 HOURS NEEDED FOR PAIN FOR 10 DAYS atorvastatin 40 mg tablet 40 mg PO QPM Label Comments: Rx Instructions: 1 tablet PO daily isosorbide mononitrate 60 mg tablet extended release 24 hr 60 mg PO QAM Label Comments: Rx Instructions: 1 tablet PO daily hydralazine 50 mg Tablet 50 mg PO TID Rx Instructions: 1 tablet PO BID insulin NPH and regular human 100 unit/mL (70-30) Suspension 10 unit subcut DAILY Label Comments: Had 30 units 8/ am Rx Instructions: Subq per instructions citalopram 40 mg tablet 40 mg PO DAILY aspirin 81 mg Tablet,Delayed Release (Dr/Ec) 81 mg PO DAILY carvedilol 3.125 mg tablet 12.5 mg PO BID Label Comments: TAKE 1 TABLET BY MOUTH TWICE A DAY WITH FOOD Anoro Ellipta 62.5-25 mcg/actuation blister with device 1 inh INHALATION DAILY Label Comments: INHALE 1 PUFF ONCE A DAY cholecalciferol (vitamin D3) [Vitamin D3] 25 mcg (1,000 unit) Tablet 25 mcg PO DAILY Bydureon BCise 2 mg/0.85 mL auto-injector 2 mg SUBCUT QWEEK Label Comments: takes on Friday albuterol sulfate 0.63 mg/3 mL Solution For Nebulization 0.63 mg inhalation QID PRN (Reason: SOB) Changed furosemide 40 mg Tablet 60 mg PO BID Qty: 60 3RF Rx Instructions: 1 TABLET PO DAILY Discontinued baclofen 10 mg tablet 10 mg PO DAILY PRN (Reason: muscle spasms) Label Comments: TAKE 1 TABLET BY MOUTH TWICE A DAY NEEDED FOR 10 DAYS Other Ambulatory Orders: Basic Metabolic Panel (Routine) Timeframe: 1 Week Location: Determined by Patient Ordered By: Annette Tenorio Follow Up: David South MD [Active Staff] - Azar Odom MD [Active Staff] - (Please call to schedule a follow up appointment with Orthopedic surgeon Dr. Wyman as previously seen or you maycall Dr. Odom to schedule an appointment with him or one of his partners.) Hamlet Nayak MD [Active Staff] - Lily Aldrich II, MD [Primary Care Provider] - (The office is aware of your hospital stay and need for follow up in 1 week, the office will call you to schedule. Please call the office if you have not heard from them by the next business day.) Geronimo Fofana MD [Active Staff] - 11/28/21 11:20 am (Previously scheduled appointment. ) Documented By: Annette Tenorio MD 11/20/21 0737 Signed By: <Electronically signed by Annette Tenorio MD> 11/20/21 1243 [facility] Work Phone: 1(312) 917-655110-11-2022 Progress note Author Wood Zavala [facility] November 20, 2021 12:42pm Note Date/Time November 20, 2021 1 0:51am [facility] [address] [place] [address] Nephrology Progress Note Signed Patient: Cinthya Wilson MR#: [id number] : 1945 Acct:[id number] Age/Sex: 76 / F Adm Date: 2 Loc: 4P Room: 8Q4660-7 Type: ADM IN Attending Dr: Annette Tenorio MD Copies to: ~ Date of Service: 11/20/2021 Subjective Subjective Narrative: This is 76-year-old female patient with a past medical history of CKD stage IV, diabetes, COPD, systolic and diastolic heart failure.? Patient follows with me in the renal clinic and the last renal office visit was in July when her creatinine was 2.4.? Patient has CKD stage IV/V with baseline creatinine fluctuating 2.4 to 3 mg deciliter depending on diuretics dose and volume status.? Patient was admitted twice to outside hospital for pneumonia in August and September.? Then patient had a fall last month and broke her right shoulder andwas admitted to.? Patient has been? been in [facility] after hospital discharge since Mondays.? Patient developed sudden onset of shortness of breath today and was reported to the hospital.? 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 Patient is on Lasix at home Chest x-ray showed large right-sided pleural effusion.? Patient currently on 2 Lnasal cannula.? Hobson catheter placed which is draining yellow urine. Patient has left lower arm AV fistula which is ready to be used for dialysis as per the vascular note from September Blood pressure seems well controlled.? Echocardiogram done today Patient is scheduled to go to IR for right-sided paracentesis today. Renal team is consulted for worsening kidney function.? Serum creatinine up to 3.4 and GFR down to 13 mL/min Interval history: Patient was seen examined bedside. She is feeling better. She is still reported to have a pleuritic chest wall pain with the deep breathing. She denies any palpitation nausea vomiting cough or shortness of breath. Exam Physical Exam Vital Signs: Temp Pulse Resp BP Pulse Ox O2 Del Method O2 Flow Rate 98.1 F 54 L 16 129/52 L 95 Nasal Cannula 1 11/20/21 08:00 11/20/21 09:30 11/20/21 09:30 11/20/21 08:00 11/20/21 08:00 11/20/21 09:25 11/20/21 09:25 FiO2 2 11/17/21 07:40 Objective Intake and Output I&O: Intake & Output 11/17/21 11/18/21 11/19/21 11/20/21 23:59 23:59 23:59 23:59 Intake Total 781 / 781 1250 / 1250 540 / 540 50 / 50 Output Total 1925 / 1925 2400 / 2400 1800 / 1800 350 / 350 Balance -1144 / -1144 -1150 / -1150 -1260 / -1260 -300 / -300 Weight 70.9 kg 69.4 kg 71.4 kg 71.8 kg Meds and Allergies Meds: Active Medications Acetaminophen (Acetaminophen 325 Mg Tablet) 650 mg PO Q4H PRN PRN Reason: Pain Stop: 11/16/22 09:49 Hydrocodone Bitart/Acetaminophen (Hydrocodone/Acetaminophen 7.5-325mg Tablet) 1tab PO Q6H PRN PRN Reason: Pain Last Admin: 11/20/21 04:55 Dose: 1 tab Albuterol (Albuterol Neb 2.5 Mg/3 Ml Vial.Neb) 2.5 mg INHALATION Q3H PRN PRN Reason: Shortness Of Breath Stop: 11/16/22 09:52 Albuterol/Ipratropium (Ipratropium/Albuterol 0.5-3 Mg 3 Ml Ampul.Neb) 3 ml INHALATION QID.RESP YESSENIA Stop: 11/16/22 15:59 Last Admin: 11/20/21 09:25 Dose: 3 ml Atorvastatin Calcium (Atorvastatin 40 Mg Tablet) 40 mg PO QPM YESSENIA Stop: 11/16/22 20:59 Last Admin: 11/19/21 21:24 Dose: 40 mg Baclofen (Baclofen 10 Mg Tablet) 10 mg PO DAILY PRN PRN Reason: muscle spasms Stop: 11/16/22 11:56 Last Admin: 11/18/21 21:48 Dose: 10 mg Bisacodyl (Bisacodyl 10 Mg Supp.Rect) 10 mg NC DAILY PRN PRN Reason: Constipation Stop: 11/16/22 09:49 Bisacodyl (Bisacodyl 5 Mg Tablet.Dr) 10 mg PO DAILY PRN PRN Reason: Constipation Stop: 11/16/22 09:49 Carvedilol (Carvedilol 12.5 Mg Tablet) 12.5 mg PO BID.WITH.MEALS YESSENIA Stop: 11/16/22 16:59 Last Admin: 11/20/21 08:26 Dose: 12.5 mg Citalopram Hydrobromide (Citalopram 40 Mg Tablet) 40 mg PO DAILY [facility] Stop: 11/17/22 08:59 Last Admin: 11/20/21 08:26 Dose: 40 mg Dextrose (Dextrose 50% In Water 25 Gm/50 Ml Syringe) 0 gm IV-PUSH PRN PRN PRN Reason: Hypoglycemia Stop: 11/16/22 09:52 Docusate Sodium (Docusate 100 Mg Capsule) 100 mg PO BID YESSENIA Stop: 11/17/22 20:59 Last Admin: 11/20/21 08:26 Dose: 100 mg Furosemide (Furosemide 20 Mg Tablet) 60 mg PO BID@0800,1600 [facility] Stop: 11/19/22 15:59 Last Admin: 11/20/21 08:26 Dose: 60 mg Glucose (Dextrose 40% Gel 15 Gm Tube) 0 gm PO PRN PRN PRN Reason: Hypoglycemia Stop: 11/16/22 09:52 Heparin Sodium (Porcine) (Heparin 5,000 Unit/Ml Vial) 5,000 unit SUBCUT Q12HR YESSENIA Stop: 11/18/22 08:59 Last Admin: 11/20/21 08:27 Dose: 5,000 unit Hydralazine HCl (Hydralazine 50 Mg Tablet) 50 mg PO TID YESSENIA Stop: 11/16/22 13:59 Last Admin: 11/20/21 08:26 Dose: 50 mg Sodium Chloride (0.9% Sodium Chloride 1,000 Ml) 1,000 mls @ 0 mls/hr MISCELLANE.Q0M PRN PRN Reason: Dialysis Stop: 11/17/22 09:06 Last Infusion: 11/17/21 11:11 Dose: Infused Insulin Aspart (Insulin Aspart 300 Units/3 Ml Insuln.Pen) 0 units SUBCUT TID.WM.HS [facility]; Protocol Stop: 11/16/22 11:59 Last Admin: 11/20/21 07:54 Dose: Not Given Isosorbide Mononitrate (Isosorbide Mononitrate 24hr Er 60 Mg Tab.Er.24h) 60 mg PO QAM [facility] Stop: 11/17/22 08:59 Last Admin: 11/20/21 08:26 Dose: 60 mg Lidocaine (Lidocaine 4% Adh..Patch) 1 patch TOPICAL DAILY [facility] Stop: 11/16/22 13:29 Last Admin: 11/20/21 08:27 Dose: 1 patch Multivitamins (Multivitamin 1 Tab Tablet) 1 tab PO DAILY YESSENIA Stop: 11/17/22 08:59 Last Admin: 11/20/21 08:26 Dose: 1 tab Nitroglycerin (Nitroglycerin 0.4 Mg Tab.Subl) 0.4 mg SUBLINGUAL Q5M PRN PRN Reason: Chest Pain Stop: 11/16/22 09:49 Omeprazole (Omeprazole 20 Mg Capsule.Dr) 40 mg PO DAILY YESSENIA Stop: 11/17/22 08:59 Last Admin: 11/20/21 08:26 Dose: 40 mg Sodium Chloride (Sodium Chloride 0.9 % 10 Ml Syringe) 0 ml IV-PUSH PRN PRN PRN Reason: Flush Stop: 11/16/22 09:49 Last Admin: 11/18/21 18:24 Dose: 10 ml Sodium Chloride (Sodium Chloride 0.9 % 10 Ml Syringe) 0 ml IV-PUSH PRN PRN PRN Reason: Flush Stop: 11/17/22 09:06 Last Admin: 11/17/21 17:55 Dose: 10 ml Vitamin D (Cholecalciferol 25 Mcg (1,000 Units) Tablet) 25 mcg PO DAILY YESSENIA Stop: 11/17/22 08:59 Last Admin: 11/20/21 08:27 Dose: 25 mcg Allergies lisinopril Allergy (Verified 07/10/21 11:48) Cough Results Labs CBC & Chem 7: 11/20/21 05:32 11/20/21 05:32 Labs: 11/20/21 05:32 BUN 69 H Creatinine 3.04 H Radiology Impressions Impressions - last 24 hours: Impressions A/V Fistula Ultrasound 11/19/21 07:00 Impression: As above Impression dictated by: Maxime Bhatti MD11/19/2021 4:39 PM Dictation Location: [place] [address] Shoulder X-Ray 11/19/21 11:19 IMPRESSION: NO EVIDENCE OF HARDWARE COMPLICATION. Impression dictated by: Quintin Matamoros Jr., D.O.11/19/2021 8:46 PM Dictation Location: [place] [address] Any impression(s) listed above is documentation that was entered by the reading physician into a diagnostic report(s) for Cinthya Wilson. I have reviewed the report(s) and am incorporating any findings in the treatment plan of this patient where applicable. A&P - Nephrology Assessment/Plan (1) Chronic kidney disease, stage 5: Assessment/Problem Details: Patient has a chronic kidney disease from diabetic and hypertensive nephropathy. CKD has been progressing for this year. I believe the patient has reached end-stage renal disease with frequent admission to the hospital for fluid overload and recurrent pleural effusion. (2) Hyponatremia: Assessment/Problem Details: With the fluid overload. Sodium level is slightly low. Asymptomatic from hyponatremia. (3) Fluid overload: Assessment/Problem Details: Likely from advanced CKD and history of CHF. Patient had recurrent pleural effusion needed thoracocentesis 3 times within a months. Chest x-ray for this admission showed right side pleural effusion. Patient had right arthrocentesis November 16 with 1500 cc fluid removal. Patient currently on Lasix IV (4) Primary hypertension: Assessment/Problem Details: Blood pressure moved with diuresis. Currently on Lasix, carvedilol and hydralazine (5) Anemia: Assessment/Problem Details: Patient had iron deficiency needed IV iron infusion as outpatient. Hemoglobin 9.0 g/dL. Iron saturation 20% with high ferritin 1300 Plan * Continue Lasix 60 mg twice daily. She is making adequate output. She currently does not have any emergent indication to initiate dialysis. * Will continue Procrit 20,000 units subcu every 2 to 4 weeks as an outpatient. * Continue current dose of the hydralazine and Imdur * Patient follow-up in our office in 1 week. * Check renal function 3 days after discharge. * Patient can be discharged from renal standpoint. * DC Hobson catheter. * Case was discussed with the patient and the family at the bedside. Documented By: Wood Zavala MD 11/20/21 1051 Signed By: <Electronically signed by Wood Zavala MD> 11/20/21 1242 [facility] Work Phone: 1(598) 349-290610-11-2022 Hospital Discharge instructions Additional Instructions Home health to manage: - PT/OT to eval and treat - Monitor VS routine - Hx. HTN - Urinary assessments - Hobson catheter discontinued 11/20/21 - please monitor voiding - Respiratory assessments - Dx. CHF, COPD, recurrent pleural effusion with multiple thoracentesises - Please monitor left arm fistula - fistulogram done 11/19/21 - Orthopedic assessments - Dx. Right AC joint sprain -- Activity as tolerated - Monitor blood sugars - Dx. DM - Routine skin assessments/care - Wound care: -- Every 2 days - Right buttock stage 3 pressure ulcer- Clean with Vashe and pat dry. Apply Therahoney gel to the wound bed. Top with Polymem AG and secure with opsite. -- Every 2 days - Left ischium stage 2 pressure ulcer- Clean with Vashe and pat dry. Top with Polymem AG and secure with opsite. - Dietary recommendations: -- Boost pudding twice daily with meals - Labs: -- BMP to be drawn weekly x 4 weeks - results to Nephrology, Dr. Little Check your blood sugar 3 times a day before meals. Document these numbers on a blood glucose log and bring them with you to your follow-up appointment with your primary care doctor. Communicate with your primary care doctor or tax services specialist if your blood sugar is under 100 or above 300 on 2 consecutive checks. Communicate with your primary care doctor or tax services specialist if you have any questions about your diabetes medications. Signs of a low blood sugar include sweating, racing heart, dizziness and/or weakness. Check your blood sugar if you have any of the symptoms. I may not have addressed or treated all of your medical illnesses or the abnormal blood work or imaging studies during this hospitalization. Please ask your primary care provider to obtain [facility] records entirely to follow up on all of the abnormal physical, laboratory, and imaging findings that I have not addressed. Please return back to the emergency room or seek medical attention if your symptoms worsen or return. Discharging you from [facility] does not mean that your medical care ends here and now. You may still need additional monitoring, work up, investigation, and treatment plan to be handled from this point on by out patient providers including your primary care provider and specialists. For any medication question, please contact your retail pharmacist or your primary care provider. Thank you.[facility] Work Phone: [phone]) 948-768310-11-2022 Consult note Author Yamileth Levi [facility] November 20, 2021 10:02am Note Date/Time November 19, 2021 1 2:57pm [facility] [address] [place] [address] Orthopedic Consult Note Signed Patient: Cinthya Wilson MR#: [id number] : 1945 Acct:[id number] Age/Sex: 76 / F Adm Date: 2 Loc: 4 Room: [address] [place] [address] Type: ADM IN Attending Dr: Annette Tenorio MD Copies to: MD Annette Bourgeois II, MD Robert M Carlisle, MD~ History of Present Illness HPI Consult date: 11/19/2021 Requesting provider: Annette Tenorio MD History of present illness: Patient is a 76-year-old female who was admitted on 11/16/2021 by hospitalist service for shortness of breath. She is been worked up for these medical issuesand is currently being treated by the hospitalist service. During her admissionshe complained of significant pain in the right shoulder and reported a fall on the right shoulder in October. She tells me that she went to the [facility] and they told her she had a fracture . She was supposed to follow-up with her surgeon who did her right reverse total shoulder arthroplasty, Dr. Wyman, today but with her admission she will not make that visit. She complains of pain on the top of the shoulder and the very outside part of the shoulder. She denies any more recent falls than October. She denies any numbness or tingling into the hands. PMFSH Vaccinated for COVID-19?: Yes Medical History Anemia Anxiety Anxiety and depression Arthritis CAD (coronary artery disease) Cataract had bilateral PHACO Cervical spinal stenosis CHF (congestive heart failure) Chronic back pain Chronic kidney disease COPD (chronic obstructive pulmonary disease) Diabetes GERD (gastroesophageal reflux disease) HTN (hypertension) Hyperlipidemia Insomnia Irregular heart rhythm prior to stent placement per pt report Lumbosacral spondylolysis LVH (left ventricular hypertrophy) Neck pain with history of cervical spinal surgery Neuropathy right thigh and feet Pneumonia Polymyalgia Skin cancer mohs procedure for removal Sleep apnea Surgical History H/O heart artery stent History of appendectomy History of back surgery lumbar History of x2 History of carpal tunnel release bilateral History of coronary angioplasty with insertion of stent History of D&C History of shoulder surgery rt shoulder History of tonsillectomy History of total abdominal hysterectomy and bilateral salpingo-oophorectomy Family History Father Heart disease Cancer Mother Cancer Diabetes Social History Smoking Status: Never smoker Substance Use Type: None Social History Comments: adult son Allergies & Medications Medications and Allergies Allergies lisinopril Allergy (Verified 07/10/21 11:48) Cough Home Medications atorvastatin 40 mg tablet 40 mg PO QPM 11/19/16 [History Confirmed 11/16/21] furosemide 40 mg tablet 60 mg PO QAM 11/19/16 [History Confirmed 06/26/21] hydralazine 50 mg tablet 50 mg PO TID 11/19/16 [History Confirmed 11/16/21] insulin human U-100 NPH-regulr 70-30 mix 100 unit/mL subcutaneous susp 10 unit subcut DAILY 11/19/16 [History Confirmed 11/16/21] isosorbide mononitrate 60 mg tablet,extended release 24 hr 60 mg PO QAM 11/19/16[History Confirmed 11/16/21] multivitamin 1 tab PO DAILY 09/07/19 [History Confirmed 11/16/21] omeprazole 40 mg capsule,delayed release 40 mg PO DAILY 09/07/19 [History Confirmed 11/16/21] aspirin 81 mg tablet,delayed release 81 mg PO DAILY 11/25/19 [History Confirmed 11/16/21] carvedilol 3.125 mg tablet 12.5 mg PO BID 11/25/19 [History Confirmed 11/16/21] cholecalciferol (vitamin D3) 25 mcg (1,000 unit) tablet (Vitamin D3) 25 mcg PO DAILY 11/25/19 [History Confirmed 11/16/21] citalopram 40 mg tablet 40 mg PO DAILY 11/25/19 [History Confirmed 11/16/21] umeclidinium 62.5 mcg-vilanterol 25 mcg/actuation powdr for inhalation (Anoro Ellipta) 1 inh inhalation DAILY 11/25/19 [History Confirmed 11/16/21] exenatide microspheres 2 mg/0.85 mL subcutaneous auto-injector (Byelisabet James) 2 mg subcut QWEEK diabetes 05/16/20 [History Confirmed 06/26/21] albuterol sulfate 0.63 mg/3 mL solution for nebulization 0.63 mg inhalation QID PRN SOB 06/26/21 [History Confirmed 11/16/21] baclofen 10 mg tablet 10 mg PO DAILY PRN muscle spasms 06/26/21 [History Confirmed 11/16/21] docusate sodium 250 mg capsule 250 mg PO DAILY 11/16/21 [History Confirmed 11/16/21] hydrocodone 7.5 mg-acetaminophen 325 mg tablet 1 tab PO Q6H PRN Pain 11/16/21 [History Confirmed 11/16/21] Exam Physical Exam Vital Signs: Temp Pulse Resp BP Pulse Ox O2 Del Method O2 Flow Rate 98.8 F 62 20 138/55 L 98 Nasal Cannula 2 11/19/21 10:15 11/19/21 11:47 11/19/21 11:47 11/19/21 10:15 11/19/21 11:42 11/19/21 11:47 11/19/21 11:47 FiO2 2 11/17/21 07:40 Narrative: Right anterior shoulder incision is well-healed no signs infection. There is some ecchymosis that does appear older along the lateral aspect of the shoulder and on top of the shoulder on the AC joint. Exquisitely tender palpation aroundthe AC joint. Nontender palpation in the humerus and around the actual glenohumeral joint. Some discomfort with active motion but motion is intact. No pain with passive internal and external rotation. Minimal discomfort with passive flexion and abduction. Neurovascular intact distally Results Lab Results Result Diagrams: 11/20/21 05:32 11/20/21 05:32 Labs: Laboratory Results - Last 48 hrs. 11/19/21 07:37: POC Glucose 168 11/19/21 04:44: PHA Creatinine Clear 15.13, Sodium 134 L, Potassium 3.8, Chloride 100, Carbon Dioxide 24.8, Anion Gap 13.0, BUN 72 H, Creatinine 3.12 H, Est GFR ( Amer) 18, Est GFR (Non-Af Amer) 15, Glucose 154 H, Calcium 8.9 11/19/21 04:44: Corrected WBC 8.4, Uncorrected WBC Count 8.4, RBC 3.13 L, Hgb 9.4 L, Hct 28.5 L, MCV 90.8, MCH 29.9, MCHC 32.9, RDW 15.4 H, Plt Count 303, MPV8.1, Neut % (Auto) 72.1, Lymph % (Auto) 12.5, Mchenry % (Auto) 11.6, Eos % (Auto) 3.2, Baso % (Auto) 0.6, Neut # (Auto) 6.0, Lymph # (Auto) 1.0, Mchenry # (Auto) 1.0H, Eos # (Auto) 0.3, Baso # (Auto) 0.0, Nucleated RBC % (auto) 0.0 11/18/21 21:01: POC Glucose 214, POC Glucose Comment Glu2: cleaned meter 11/18/21 17:37: POC Glucose 147, POC Glucose Comment Glu2: cleaned meter 11/18/21 11:32: POC Glucose 236, POC Glucose Comment Glu2: cleaned meter 11/18/21 07:18: POC Glucose 171, POC Glucose Comment Glu2: cleaned meter 11/18/21 05:12: Troponin I High Sens 170 H* 11/18/21 05:12: PHA Creatinine Clear 14.15, Sodium 131 L, Potassium 3.8, Chloride 100, Carbon Dioxide 24.0, Anion Gap 10.8, BUN 75 H, Creatinine 3.37 H, Est GFR ( Amer) 16, Est GFR (Non-Af Amer) 13, Glucose 165 H, Calcium 8.6 11/18/21 05:12: Corrected WBC 5.4, Uncorrected WBC Count 5.4, RBC 2.80 L, Hgb 8.4 L, Hct 25.5 L, MCV 91.4, MCH 30.0, MCHC 32.9, RDW 15.2, Plt Count 276, MPV 7.8, Neut % (Auto) 61.8, Lymph % (Auto) 18.2, Mchenry % (Auto) 13.3, Eos % (Auto) 5.3, Baso % (Auto) 1.4, Neut # (Auto) 3.3, Lymph # (Auto) 1.0, Mchenry # (Auto) 0.7, Eos # (Auto) 0.3, Baso # (Auto) 0.1, Nucleated RBC % (auto) 0.0 11/17/21 20:56: POC Glucose 230, POC Glucose Comment Glu2: cleaned meter 11/17/21 17:19: POC Glucose 122, POC Glucose Comment Glu2: cleaned meter H & H 11/16/21 11/17/21 11/18/21 Range/Units 11:25 04:55 05:12 Hgb 9.0 L 8.4 L 8.4 L (11.8-15.4) g/dL Hct 27.5 L 25.5 L 25.5 L (34.0-46.4) % 11/19/21 Range/Units 04:44 Hgb 9.4 L (11.8-15.4) g/dL Hct 28.5 L (34.0-46.4) % Coagulation 11/16/21 Range/Units 11:25 INR 1.3 All other labs are normal. Microbiology Results Microbiology: Microbiology - Results from entire visit 11/16/21 15:15 Thoracentesis Fluid Aerobic Culture - Final No Growth 2 Days 11/16/21 15:15 Thoracentesis Fluid Anaerobic Culture - Final No Anaerobes Isolated 3 Days 11/16/21 15:15 Thoracentesis Fluid Gram Stain - Final 11/16/21 15:15 Thoracentesis Fluid AFB Smear Concentration - Final 11/16/21 15:15 Thoracentesis Fluid Acid Fast Bacilli Smear - Final 11/16/21 15:15 Thoracentesis Fluid Fungal Smear - Final Imaging & Diagnostic Results Imaging/Diagnostics: 3 views of the right shoulder were obtained on 11/16/2021 and independent reviewed today. There is a right reverse total shoulder arthroplasty present. There are no prior x-rays of this prosthesis in our system. Overall positioningof the humeral component appears acceptable. The glenoid component appears to be slightly tilted approximately. I am able to appreciate some radiolucency around the screws and central peg but unsure if these have been there since surgery or if they are new. I do not appreciate any fractures. The Scap Y doesdemonstrate some overlap of the clavicle and acromion. Assessment/Plan (1) Recurrent right pleural effusion: Code(s): J90 - Pleural effusion, not elsewhere classified (2) Chronic kidney disease, stage 5: Code(s): N18.5 - Chronic kidney disease, stage 5 (3) Sleep apnea: Code(s): G47.30 - Sleep apnea, unspecified (4) HTN (hypertension): Code(s): I10 - Essential (primary) hypertension (5) COPD (chronic obstructive pulmonary disease): Code(s): J44.9 - Chronic obstructive pulmonary disease, unspecified (6) Diabetes: Code(s): E11.9 - Type 2 diabetes mellitus without complications (7) CAD (coronary artery disease): Code(s): I25.10 - Atherosclerotic heart disease of [place] coronary artery without angina pectoris (8) Anemia: Code(s): D64.9 - Anemia, unspecified (9) Right shoulder pain: Plan: Right AC joint sprain I discussed with the patient today that I do not appreciate any acute osseous abnormalities on her x-ray. Furthermore explained that her exam is much more consistent with an AC sprain and she is also recovering from the bruising from that fall back in October. At this point I do not think there is anything necessary from an acute intervention standpoint. As a result, the patient can follow-up as an outpatient upon discharge with either her surgeon Dr. Wyman, or one of my partners, Dr. Odom. In the meantime, the patient can continue activities as tolerated. She can certainly work with PT/OT to continue to work on range of motion and strengthening of the right upper extremity. Please call with any questions or concerns. Code(s): M25.511 - Pain in right shoulder Documented By: Yamileth Levi MD 11/19/21 12 52 Signed By: <Electronically signed by Yamileth Levi MD> 11/20/21 1002 [facility] Work Phone: [phone]) 319-268510-10-2022 Consult note Author David South [facility] November 19, 2021 5:31pm Note Date/Time November 19, 2021 8 :36am [facility] [address] [place] [address] Vascular Surgery Consult Note Signed Patient: Cinthya Wilson MR#: [id number] : 1945 Acct:[id number] Age/Sex: 76 / F Adm Date: 2 Loc: Room: [address] [place] [address] Type: ADM IN Attending Dr: Annette Tenorio MD Copies to: LilyMD Tessie Ahmadi II, APRN Jeffrey L Buehrer, MD Rafik Massouh, MD~ HPI Consult HPI Reason for consult: Left arm AV fistula evaluation History of present illness: Ms. Wilson is a 76-year-old female with medical history to include stage V CKD, COPD, and heart failure. This patient is known to our office and had creation of right upper extremity brachiocephalic AV fistula at the end of June. She has not been on hemodialysis. On her follow-up in the office ultrasound showed fistula with adequate size and flow throughout and we had cleared the fistula for use if she were to need it. According to the patient, the dialysis nurse was able to get 1 needle and but had difficulty with cannulation and placement of second needle. Vascular surgery has been asked to take a further look at her fistula. cc:: CC: Annette Tenorio MD Data of Consult Consult date: 11/19/2021 Requesting Physician: Annette Tenorio MD Review of Systems Review of Systems All other systems reviewed & are negative unless noted below or in HPI PMFSH Vaccinated for COVID-19?: Yes Medical History Anemia Anxiety Anxiety and depression Arthritis CAD (coronary artery disease) Cataract had bilateral PHACO Cervical spinal stenosis CHF (congestive heart failure) Chronic back pain Chronic kidney disease COPD (chronic obstructive pulmonary disease) Diabetes GERD (gastroesophageal reflux disease) HTN (hypertension) Hyperlipidemia Insomnia Irregular heart rhythm prior to stent placement per pt report Lumbosacral spondylolysis LVH (left ventricular hypertrophy) Neck pain with history of cervical spinal surgery Neuropathy right thigh and feet Pneumonia Polymyalgia Skin cancer mohs procedure for removal Sleep apnea Surgical History H/O heart artery stent History of appendectomy History of back surgery lumbar History of x2 History of carpal tunnel release bilateral History of coronary angioplasty with insertion of stent History of D&C History of shoulder surgery rt shoulder History of tonsillectomy History of total abdominal hysterectomy and bilateral salpingo-oophorectomy Family History Father Heart disease Cancer Mother Cancer Diabetes Social History Smoking Status: Never smoker Substance Use Type: None Social History Comments: adult son Allergies & Active Medications Medications and Allergies Allergies lisinopril Allergy (Verified 07/10/21 11:48) Cough Exam Physical Exam Vital Signs: Temp Pulse Resp BP Pulse Ox O2 Del Method O2 Flow Rate 98.3 F 69 18 161/66 H 93 L Room Air 3 11/19/21 04:00 11/19/21 07:42 11/19/21 07:42 11/19/21 04:00 11/19/21 04:00 11/19/21 04:00 11/18/21 08:18 FiO2 2 11/17/21 07:40 Narrative: 76-year-old female, no acute distress. She is resting comfortably in her bed this morning currently receiving breathing treatment. She is not short of breath with conversation this morning. Focused assessment of her left arm shows AV fistula with good thrill and bruit. She does have some bruising over the fistula site from attempts at cannulation. She has good hand function and adequate pharmacy manager strength when compared bilaterally. This is Dr. South dictating. The fistula does have a good thrill but about 4 cm from its origin there is a change with some proximal pulsatility and then distal flattening. This suggest the likelihood of a mid segment stenosis. Results Labs CBC & Chem 7: 11/19/21 04:44 11/19/21 04:44 Labs: Laboratory Results - last 24 hr 11/18/21 11/18/21 11/18/21 11:32 17:37 21:01 Corrected WBC Uncorrected WBC Count RBC Hgb Hct MCV MCH MCHC RDW Plt Count MPV Neut % (Auto) Lymph % (Auto) Mchenry % (Auto) Eos % (Auto) Baso % (Auto) Neut # (Auto) Lymph # (Auto) Mchenry # (Auto) Eos # (Auto) Baso # (Auto) Nucleated RBC % (auto) PHA Creatinine Clear Sodium Potassium Chloride Carbon Dioxide Anion Gap BUN Creatinine Est GFR ( Amer) Est GFR (Non-Af Amer) Glucose POC Glucose 236 147 214 POC Glucose Comment Glu2: cleaned meter Glu2: cleaned meter Glu2: cleaned meter Calcium 11/19/21 11/19/21 11/19/21 04:44 04:44 07:37 Corrected WBC 8.4 Uncorrected WBC Count 8.4 RBC 3.13 L Hgb 9.4 L Hct 28.5 L MCV 90.8 MCH 29.9 MCHC 32.9 RDW 15.4 H Plt Count 303 MPV 8.1 Neut % (Auto) 72.1 Lymph % (Auto) 12.5 Mchenry % (Auto) 11.6 Eos % (Auto) 3.2 Baso % (Auto) 0.6 Neut # (Auto) 6.0 Lymph # (Auto) 1.0 Mchenry # (Auto) 1.0 H Eos # (Auto) 0.3 Baso # (Auto) 0.0 Nucleated RBC % (auto) 0.0 PHA Creatinine Clear 15.13 Sodium 134 L Potassium 3.8 Chloride 100 Carbon Dioxide 24.8 Anion Gap 13.0 BUN 72 H Creatinine 3.12 H Est GFR ( Amer) 18 Est GFR (Non-Af Amer) 15 Glucose 154 H POC Glucose 168 POC Glucose Comment Calcium 8.9 PT 14.2 Seconds (9.0-12.9) H 11/16/21 11:25 APTT 32.8 Seconds (25.1-36.5) 11/16/21 11:25 Microbiology Microbiology: 11/16/21 15:15 Thoracentesis Fluid AFB Smear Concentration - Final 11/16/21 15:15 Thoracentesis Fluid Acid Fast Bacilli Smear - Final 11/16/21 15:15 Thoracentesis Fluid Aerobic Culture - Final No Growth 2 Days 11/16/21 15:15 Thoracentesis Fluid Gram Stain - Final 11/16/21 15:15 Thoracentesis Fluid Fungal Smear - Final A&P - Vascular (1) Chronic kidney disease, stage 5: Plan: AV fistula graft flow scan has been obtained and pending read. She will most likely require fistulogram with possible intervention. This was explained to the patient at length and all of her questions were addressed. This is Dr. South dictating. By physical examination there is a proximal stenosis in this fistula. She will undergo diagnostic fistulogram and intervention as seems appropriate based on the findings. Code(s): N18.5 - Chronic kidney disease, stage 5 Status: Acute (2) Hyponatremia: Code(s): E87.1 - Hypo-osmolality and hyponatremia Status: Acute (3) Fluid overload: Code(s): E87.70 - Fluid overload, unspecified Status: Acute (4) Primary hypertension: Code(s): I10 - Essential (primary) hypertension Status: Acute (5) Anemia: Code(s): D64.9 - Anemia, unspecified Status: Acute Documented By: Tessie Walker APRN 11/19/21 0 834 Signed By: <Electronically signed by NELI Walker> 11/19/21 0836 <Electronically signed by MD David South> 11/19/21 1734 [facility] Work Phone: [phone]) 543-209910-10-2022 Progress note Author Annette Tenorio [facility] November 19, 2021 12:16pm Note Date/Time November 19, 2021 1 2:16pm [facility] [address] [place] [address] Hospitalist Progress Note Signed Patient: Cinthya Wilson MR#: [id number] : 1945 Acct:[id number] Age/Sex: 76 / F Adm Date: 2 Loc: Room: [address] [place] [address] Type: ADM IN Attending Dr: Annette Tenorio MD Copies to: ~ Date of Service: 11/19/2021 Subjective Subjective Narrative: Patient is a 76-year-old female with a past medical history of COPD, CKD stage V, systolic and diastolic CHF who was admitted to the hospital 3 days ago due toprogressive dyspnea. Patient presented with a right-sided transudative pleural effusion and a thoracentesis was performed at radiology 2 days ago removed 1500 mL fluid. Patient's first attempt at hemodialysis failed as the fistula was notfunctioning correctly. Vascular surgery attempted a fistulogram today but was unsuccessful in correcting the fistula. Upon presentation today, patient was laying in her bed with an oxygen saturation of 94% on 2 L of oxygen via nasal cannula. Patient stated she felt more short of breath today than yesterday. Patient denied any chest pain or nausea. Patient did state that both of her shoulders are painful to move. Exam Physical Exam Vital Signs: Temp Pulse Resp BP Pulse Ox O2 Del Method O2 Flow Rate 98.8 F 68 18 138/55 L 94 L Nasal Cannula 2 11/19/21 10:15 11/19/21 10:15 11/19/21 10:15 11/19/21 10:15 11/19/21 10:15 11/19/21 10:15 11/19/21 10:15 FiO2 2 11/17/21 07:40 Narrative: General: patient is alert and oriented, using 2 L oxygen via nasal cannula HEENT: head atraumatic, normocephalic, moist mucous membranes, normal conjunctiva CV: regular rate and rhythm, no murmurs or gallops Resp: CTA b/l, no rhonchi, wheezes, or rales GI: abdomen soft, nontender, nondistended Extremities: no edema or lesions noted Psych: cooperative, appropriate affect Objective Lab Results CBC & Chem 7: 11/19/21 04:44 11/19/21 04:44 Microbiology Results Microbiology 11/16/21 15:15 Thoracentesis Fluid Aerobic Culture - Final No Growth 2 Days 11/16/21 15:15 Thoracentesis Fluid Anaerobic Culture - Final No Anaerobes Isolated 3 Days 11/16/21 15:15 Thoracentesis Fluid Gram Stain - Final 11/16/21 15:15 Thoracentesis Fluid AFB Smear Concentration - Final 11/16/21 15:15 Thoracentesis Fluid Acid Fast Bacilli Smear - Final Meds Allergies and Active Meds Allergies lisinopril Allergy (Verified 07/10/21 11:48) Cough Active Meds: Active Medications Generic Name Dose Route Start Last Admin Trade Name Freq PRN Reason Stop Dose Admin Acetaminophen 650 mg 11/16/21 09:50 Acetaminophen 325 Mg Tablet PO 11/16/22 09:49 Q4H PRN Pain Hydrocodone Bitart/Acetaminophen 1 tab 11/16/21 13:14 11/18/21 21:48 Hydrocodone/Acetaminophen 7.5-325mg Tablet PO 1 tab Q6H PRN Administration Pain Albuterol 2.5 mg 11/16/21 09:53 Albuterol Neb 2.5 Mg/3 Ml Vial.Neb INHALATION 11/16/22 09:52 Q3H PRN Shortness Of Breath Albuterol/Ipratropium 3 ml 11/16/21 16:00 11/19/21 07:42 Ipratropium/Albuterol 0.5-3 Mg 3 Ml Ampul.Neb INHALATION 11/16/22 15:59 3 ml QID.RESP YESSENIA Administration Atorvastatin Calcium 40 mg 11/16/21 21:00 11/18/21 21:48 Atorvastatin 40 Mg Tablet PO 11/16/22 20:59 40 mg QPM YESSENIA Administration Baclofen 10 mg 11/16/21 11:57 11/18/21 21:48 Baclofen 10 Mg Tablet PO 11/16/22 11:56 10 mg DAILY PRN Administration muscle spasms Bisacodyl 10 mg 11/16/21 09:50 Bisacodyl 10 Mg Supp.Rect NC 11/16/22 09:49 DAILY PRN Constipation Bisacodyl 10 mg 11/16/21 09:50 Bisacodyl 5 Mg Tablet.Dr PO 11/16/22 09:49 DAILY PRN Constipation Carvedilol 12.5 mg 11/16/21 17:00 11/19/21 09:29 Carvedilol 12.5 Mg Tablet PO 11/16/22 16:59 Not Given BID.WITH.MEALS YESSENIA Citalopram Hydrobromide 40 mg 11/17/21 09:00 11/19/21 09:30 Citalopram 40 Mg Tablet PO 11/17/22 08:59 Not Given DAILY YESSENIA Dextrose 0 gm 11/16/21 09:53 Dextrose 50% In Water 25 Gm/50 Ml Syringe IV-PUSH 11/16/22 09:52 PRN PRN Hypoglycemia Docusate Sodium 100 mg 11/17/21 21:00 11/19/21 09:30 Docusate 100 Mg Capsule PO 11/17/22 20:59 Not Given BID YESSENIA Furosemide 80 mg 11/16/21 14:00 11/19/21 09:31 Furosemide 100 Mg/10 Ml Vial IV-PUSH 11/16/22 13:59 Not Given BID@0800,1600 YESSENIA Glucose 0 gm 11/16/21 09:53 Dextrose 40% Gel 15 Gm Tube PO 11/16/22 09:52 PRN PRN Hypoglycemia Heparin Sodium (Porcine) 5,000 unit 11/18/21 09:00 11/19/21 09:30 Heparin 5,000 Unit/Ml Vial SUBCUT 11/18/22 08:59 Not Given Q12HR YESSENIA Hydralazine HCl 50 mg 11/16/21 14:00 11/19/21 09:30 Hydralazine 50 Mg Tablet PO 11/16/22 13:59 Not Given TID YESSENIA Sodium Chloride 1,000 mls @ 0 mls/hr 11/17/21 09:07 11/17/21 11:11 0.9% Sodium Chloride 1,000 Ml MISCELLANE 11/17/22 09:06 Infused .Q0M PRN Infusion Dialysis As Directed Insulin Aspart 0 units 11/16/21 12:00 11/19/21 09:29 Insulin Aspart 300 Units/3 Ml Insuln.Pen SUBCUT 11/16/22 11:59 Not Given TID.[facility] Protocol Isosorbide Mononitrate 60 mg 11/17/21 09:00 11/19/21 09:30 Isosorbide Mononitrate 24hr Er 60 Mg Tab.Er.24h PO 11/17/22 08:59 Not Given QAM [facility] Lidocaine 1 patch 11/16/21 13:30 11/18/21 08:33 Lidocaine 4% Adh..Patch TOPICAL 11/16/22 13:29 1 patch DAILY YESSENIA Administration Multivitamins 1 tab 11/17/21 09:00 11/19/21 09:31 Multivitamin 1 Tab Tablet PO 11/17/22 08:59 Not Given DAILY [facility] Nitroglycerin 0.4 mg 11/16/21 09:50 Nitroglycerin 0.4 Mg Tab.Subl SUBLINGUAL 11/16/22 09:49 Q5M PRN Chest Pain Omeprazole 40 mg 11/17/21 09:00 11/19/21 09:31 Omeprazole 20 Mg Capsule.Dr PO 11/17/22 08:59 Not Given DAILY YESSENIA Sodium Chloride 0 ml 11/16/21 09:50 11/18/21 18:24 Sodium Chloride 0.9 % 10 Ml Syringe IV-PUSH 11/16/22 09:49 10 ml PRN PRN Administration Flush Sodium Chloride 0 ml 11/17/21 09:07 11/17/21 17:55 Sodium Chloride 0.9 % 10 Ml Syringe IV-PUSH 11/17/22 09:06 10 ml PRN PRN Administration Flush Vitamin D 25 mcg 11/17/21 09:00 11/19/21 09:29 Cholecalciferol 25 Mcg (1,000 Units) Tablet PO 11/17/22 08:59 Not Given DAILY [facility] A&P - Hospitalist Assessment/Plan (1) Recurrent right pleural effusion: (2) Chronic kidney disease, stage 5: (3) Sleep apnea: (4) HTN (hypertension): (5) COPD (chronic obstructive pulmonary disease): (6) Diabetes: (7) CAD (coronary artery disease): (8) Anemia: (9) Right shoulder pain: Plan 1. Recurrent right pleural effusion -Thoracentesis performed 3 days ago and 1500 mL of transudative fluid was removed -Continue Lasix IV 80 mg twice daily patient is to follow-up with pulmonary in the outpatient setting 2. Chronic kidney disease stage V progressing into end-stage renal disease -Failed first attempt at hemodialysis due to problem with fistula -Attempt to correct fistula was unsuccessful today -Nephrology has been consulted and is seeing patient. We will arrange for patient to follow-up with the nephrology team no indication for urgent dialysis at this time 3. Anemia -Hemoglobin stable at 9.4. Continue to monitor 4. Right shoulder pain, x-ray and orthopedic consultation 5. Bladder urinary retention -Patient had a Hobson catheter placed at previous hospital stay in [place] [employer] aspatient experienced difficulty starting urine stream -Patient has been constipated, which may be causing bladder or urinary retention 6. Elevated troponin. No chest pain. No active angina. No clinical evidence to suggest ACS. Patient is to follow-up with her dental office receptionist in the outpatientsetting. She may need to have additional ischemic evaluation electively. Past medical history: COPD -continue albuterol/ipratropium Hypertension -continue carvedilol, hydralazine Diabetes -continue insulin aspart CAD -continue atorvastatin Documented By: Annette Tenorio MD 11/19/21 111 Signed By: <Electronically signed by Annette Tenorio MD> 11/19/21 1216 [facility] Work Phone: [phone] 160-684110-10-2022 Progress note Author Wood Zavala [facility] November 19, 2021 11:35am Note Date/Time November 19, 2021 1 1:32am [facility] [address] [place] [address] Nephrology Progress Note Signed Patient: Cinthya Wilson MR#: [id number] : 1945 Acct:[id number] Age/Sex: 76 / F Adm Date: 2 Loc: Room: [address] [place] [address] Type: ADM IN Attending Dr: Annette Tenorio MD Copies to: ~ Date of Service: 11/19/2021 Subjective Subjective Narrative: This is 76-year-old female patient with a past medical history of CKD stage IV, diabetes, COPD, systolic and diastolic heart failure. Patient follows with me in the renal clinic and the last renal office visit was in July when her creatinine was 2.4. Patient has CKD stage IV/V with baseline creatinine fluctuating 2.4 to 3 mg deciliter depending on diuretics dose and volume status. Patient was admitted twice to outside hospital for pneumonia in August and September. Then patient had a fall last month and broke her right shoulder and wasadmitted to. Patient has been been in [facility] [place] hospital discharge since Mondays. Patient developed sudden onset of shortness of breath today and was reported to the hospital. 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 Patient is on Lasix at home Chest x-ray showed large right-sided pleural effusion. Patient currently on 2 Lnasal cannula. Hobson catheter placed which is draining yellow urine. Patient has left lower arm AV fistula which is ready to be used for dialysis as per the vascular note from September Blood pressure seems well controlled. Echocardiogram done today Patient is scheduled to go to IR for right-sided paracentesis today. Renal team is consulted for worsening kidney function. Serum creatinine up to 3.4 and GFR down to 13 mL/min Interval history: Patient was seen examined at bedside. She had fistulogram earlier this morning. Her AV fistula was accessed by HD nurse but it blew. She is responding well with IV Lasix and put out 2.5 L urine. Her creatinine and serum creatinine wentup. Breathing has been improving. Denies any chest with palpation cough nauseavomiting or diarrhea or shortness of breath. Exam Physical Exam Vital Signs: Temp Pulse Resp BP Pulse Ox O2 Del Method O2 Flow Rate 98.8 F 68 18 138/55 L 94 L Nasal Cannula 2 11/19/21 10:15 11/19/21 10:15 11/19/21 10:15 11/19/21 10:15 11/19/21 10:15 11/19/21 10:15 11/19/21 10:15 FiO2 2 11/17/21 07:40 Narrative: General: Appears comfortable and not in distress Heart: S1-S2, no rub Lung: Bilateral air entry, no wheezing or crackles Abdomen: Soft, positive bowel sounds Extremities: No edema, no cyanosis Head: Atraumatic, normocephalic Ear: No gross hearing Deficit or external ear redness Eyes: No pallor or redness Neck: No JVD or visible mass Skin: No rashes or bruises IS TECHNICIAN: Awake,Alert, following simple command Musculoskeletal: No joint swelling or limitation of movement Psychiatric: Cooperative, normal mood and affect Objective Intake and Output I&O: Intake & Output 11/16/21 11/17/21 11/18/21 11/19/21 23:59 23:59 23:59 23:59 Intake Total 150 / 150 781 / 781 1250 / 1250 200 / 200 Output Total 1250 / 1250 1925 / 1925 2400 / 2400 800 / 800 Balance -1100 / -1100 -1144 / -1144 -1150 / -1150 -600 / -600 Weight 71.2 kg 70.9 kg 69.4 kg 71.4 kg Meds and Allergies Meds: Active Medications Acetaminophen (Acetaminophen 325 Mg Tablet) 650 mg PO Q4H PRN PRN Reason: Pain Stop: 11/16/22 09:49 Hydrocodone Bitart/Acetaminophen (Hydrocodone/Acetaminophen 7.5-325mg Tablet) 1tab PO Q6H PRN PRN Reason: Pain Last Admin: 11/19/21 11:24 Dose: 1 tab Albuterol (Albuterol Neb 2.5 Mg/3 Ml Vial.Neb) 2.5 mg INHALATION Q3H PRN PRN Reason: Shortness Of Breath Stop: 11/16/22 09:52 Albuterol/Ipratropium (Ipratropium/Albuterol 0.5-3 Mg 3 Ml Ampul.Neb) 3 ml INHALATION QID.RESP YESSENIA Stop: 11/16/22 15:59 Last Admin: 11/19/21 07:42 Dose: 3 ml Atorvastatin Calcium (Atorvastatin 40 Mg Tablet) 40 mg PO QPM YESSENIA Stop: 11/16/22 20:59 Last Admin: 11/18/21 21:48 Dose: 40 mg Baclofen (Baclofen 10 Mg Tablet) 10 mg PO DAILY PRN PRN Reason: muscle spasms Stop: 11/16/22 11:56 Last Admin: 11/18/21 21:48 Dose: 10 mg Bisacodyl (Bisacodyl 10 Mg Supp.Rect) 10 mg NC DAILY PRN PRN Reason: Constipation Stop: 11/16/22 09:49 Bisacodyl (Bisacodyl 5 Mg Tablet.Dr) 10 mg PO DAILY PRN PRN Reason: Constipation Stop: 11/16/22 09:49 Carvedilol (Carvedilol 12.5 Mg Tablet) 12.5 mg PO BID.WITH.MEALS YESSENIA Stop: 11/16/22 16:59 Last Admin: 11/19/21 11:23 Dose: 12.5 mg Citalopram Hydrobromide (Citalopram 40 Mg Tablet) 40 mg PO DAILY YESSENIA Stop: 11/17/22 08:59 Last Admin: 11/19/21 11:24 Dose: 40 mg Dextrose (Dextrose 50% In Water 25 Gm/50 Ml Syringe) 0 gm IV-PUSH PRN PRN PRN Reason: Hypoglycemia Stop: 11/16/22 09:52 Docusate Sodium (Docusate 100 Mg Capsule) 100 mg PO BID YESSENIA Stop: 11/17/22 20:59 Last Admin: 11/19/21 11:25 Dose: 100 mg Furosemide (Furosemide 100 Mg/10 Ml Vial) 80 mg IV-PUSH BID@0800,1600 YESSENIA Stop: 11/16/22 13:59 Last Admin: 11/19/21 09:31 Dose: Not Given Glucose (Dextrose 40% Gel 15 Gm Tube) 0 gm PO PRN PRN PRN Reason: Hypoglycemia Stop: 11/16/22 09:52 Heparin Sodium (Porcine) (Heparin 5,000 Unit/Ml Vial) 5,000 unit SUBCUT Q12HR YESSENIA Stop: 11/18/22 08:59 Last Admin: 11/19/21 09:30 Dose: Not Given Hydralazine HCl (Hydralazine 50 Mg Tablet) 50 mg PO TID YESSENIA Stop: 11/16/22 13:59 Last Admin: 11/19/21 09:30 Dose: Not Given Sodium Chloride (0.9% Sodium Chloride 1,000 Ml) 1,000 mls @ 0 mls/hr MISCELLANE.Q0M PRN PRN Reason: Dialysis Stop: 11/17/22 09:06 Last Infusion: 11/17/21 11:11 Dose: Infused Insulin Aspart (Insulin Aspart 300 Units/3 Ml Insuln.Pen) 0 units SUBCUT TID.[facility]; Protocol Stop: 11/16/22 11:59 Last Admin: 11/19/21 09:29 Dose: Not Given Isosorbide Mononitrate (Isosorbide Mononitrate 24hr Er 60 Mg Tab.Er.24h) 60 mg PO QAM YESSENIA Stop: 11/17/22 08:59 Last Admin: 11/19/21 11:24 Dose: 60 mg Lidocaine (Lidocaine 4% Adh..Patch) 1 patch TOPICAL DAILY [facility] Stop: 11/16/22 13:29 Last Admin: 11/19/21 11:25 Dose: 1 patch Multivitamins (Multivitamin 1 Tab Tablet) 1 tab PO DAILY [facility] Stop: 11/17/22 08:59 Last Admin: 11/19/21 09:31 Dose: Not Given Nitroglycerin (Nitroglycerin 0.4 Mg Tab.Subl) 0.4 mg SUBLINGUAL Q5M PRN PRN Reason: Chest Pain Stop: 11/16/22 09:49 Omeprazole (Omeprazole 20 Mg Capsule.Dr) 40 mg PO DAILY [facility] Stop: 11/17/22 08:59 Last Admin: 11/19/21 11:24 Dose: 40 mg Sodium Chloride (Sodium Chloride 0.9 % 10 Ml Syringe) 0 ml IV-PUSH PRN PRN PRN Reason: Flush Stop: 11/16/22 09:49 Last Admin: 11/18/21 18:24 Dose: 10 ml Sodium Chloride (Sodium Chloride 0.9 % 10 Ml Syringe) 0 ml IV-PUSH PRN PRN PRN Reason: Flush Stop: 11/17/22 09:06 Last Admin: 11/17/21 17:55 Dose: 10 ml Vitamin D (Cholecalciferol 25 Mcg (1,000 Units) Tablet) 25 mcg PO DAILY [facility] Stop: 11/17/22 08:59 Last Admin: 11/19/21 09:29 Dose: Not Given Allergies lisinopril Allergy (Verified 07/10/21 11:48) Cough Results Labs CBC & Chem 7: 11/19/21 04:44 11/19/21 04:44 Labs: 11/19/21 04:44 BUN 72 H Creatinine 3.12 H Radiology Impressions Impressions - last 24 hours: Any impression(s) listed above is documentation that was entered by the reading physician into a diagnostic report(s) for Cinthya Wilson. I have reviewed the report(s) and am incorporating any findings in the treatment plan of this patient where applicable. A&P - Nephrology Assessment/Plan (1) Chronic kidney disease, stage 5: Assessment/Problem Details: Patient has a chronic kidney disease from diabetic and hypertensive nephropathy. CKD has been progressing for this year. I believe the patient has reached end-stage renal disease with frequent admission to the hospital for fluid overload and recurrent pleural effusion. (2) Hyponatremia: Assessment/Problem Details: With the fluid overload. Sodium level is slightly low. Asymptomatic from hyponatremia. (3) Fluid overload: Assessment/Problem Details: Likely from advanced CKD and history of CHF. Patient had recurrent pleural effusion needed thoracocentesis 3 times within a months. Chest x-ray for this admission showed right side pleural effusion. Patient had right arthrocentesis November 16 with 1500 cc fluid removal. Patient currently on Lasix IV (4) Primary hypertension: Assessment/Problem Details: Blood pressure moved with diuresis. Currently on Lasix, carvedilol and hydralazine (5) Anemia: Assessment/Problem Details: Patient had iron deficiency needed IV iron infusion as outpatient. Hemoglobin 9.0 g/dL. Iron saturation 20% with high ferritin 1300 Plan - Unfortunately, were not able to start hemodialysis today due to left upper AV fistula malfunction with difficult cannulation. There is no urgency for dialysis as patient has normal acid-base balance and electrolytes. She denies any uremic symptoms. She is responding with diuretics. -Continue Lasix 60 mg twice daily to maintain urine output. -Will give Procrit 20,000 unit, dose. He will be began today as an outpatient. -We will continue to monitor blood pressure and adjust blood pressure medications as needed. Blood pressure improved with better diuresis -Pulmonary service is recurrent right pleural effusion. Patient had thoracocentesis done November 16 with 1500 cc fluid removal -Check renal function panel 3 days after discharge. Outpatient follow-up with Dr. Fofana in 1 week. Documented By: Wood Zavala MD 11/19/21 1127 Signed By: <Electronically signed by Wood Zavala MD> 11/19/21 5996 [facility] Work Phone: [phone]) 137-261410-09-2022 Progress note Author [facility] November 18, 2021 1:16pm Note Date/Time November 18, 2021 1: 16pm [facility] [address] [place] [address] Nephrology Progress Note Signed Patient: Cinthya Wilson MR#: [id number] : 1945 Acct:[id number] Age/Sex: 76 / F Adm Date: 2 Loc: Room: [address] [place] [address] Type: ADM IN Attending Dr: Carlton Mtz DO Copies to: ~ Date of Service: 11/18/2021 Subjective Subjective Narrative: This is 76-year-old female patient with a past medical history of CKD stage IV, diabetes, COPD, systolic and diastolic heart failure. Patient follows with me in the renal clinic and the last renal office visit was in July when her creatinine was 2.4. Patient has CKD stage IV/V with baseline creatinine fluctuating 2.4 to 3 mg deciliter depending on diuretics dose and volume status. Patient was admitted twice to outside hospital for pneumonia in August and September. Then patient had a fall last month and broke her right shoulder and wasadmitted to. Patient has been been in [facility] [place] after hospital discharge since Mondays. Patient developed sudden onset of shortness of breath today and was reported to the hospital. 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 Patient is on Lasix at home Chest x-ray showed large right-sided pleural effusion. Patient currently on 2 Lnasal cannula. Hobson catheter placed which is draining yellow urine. Patient has left lower arm AV fistula which is ready to be used for dialysis as per the vascular note from September Blood pressure seems well controlled. Echocardiogram done today Patient is scheduled to go to IR for right-sided paracentesis today. Renal team is consulted for worsening kidney function. Serum creatinine up to 3.4 and GFR down to 13 mL/min Interval history: Patient was seen and examined in her room. Patient had right side thoracocentesis done on Friday with 1500 cc fluid removal. Patient said her breathing improved tremendously. She is currently on room air We were not able to run hemodialysis Friday due to cannulation difficulty. Vascular surgeon was consulted and likely patient needs fistulogram with angioplasty [place] Patient responding well to Lasix 80 mg twice daily. Kidney function stable Denies nausea vomiting. No chest pain. No cough. No diarrhea. No abdominal pain. Exam Physical Exam Vital Signs: Temp Pulse Resp BP Pulse Ox O2 Del Method O2 Flow Rate 98.2 F 58 L 20 147/66 H 100 Room Air 3 11/18/21 08:18 11/18/21 12:34 11/18/21 12:34 11/18/21 08:18 11/18/21 08:18 11/18/21 11:58 11/18/21 08:18 FiO2 2 11/17/21 07:40 Narrative: General: Patient in no acute distress Head :atraumatic normocephalic Eyes: PERRLA. Neck: no JVD no bruit. Heart: S1-S2. RRR Respiratory: Clear to auscultation bilaterally. No crackles no wheezing Abdomen: Soft, positive bowel sounds,no tenderness. Neurology: Awake alert oriented x3. No focal deficits Extremity. No cyanosis. No edema Skin: No skin rash Dialysis access: Left upper extremity AV fistula which is positive for bruit andthrill Objective Intake and Output I&O: Intake & Output 11/15/21 11/16/21 11/17/21 11/18/21 23:59 23:59 23:59 23:59 Intake Total 150 / 150 781 / 781 300 / 300 Output Total 1250 / 1250 1925 / 1925 650 / 650 Balance -1100 / -1100 -1144 / -1144 -350 / -350 Weight 71.2 kg 70.9 kg 69.4 kg Meds and Allergies Meds: Active Medications Acetaminophen (Acetaminophen 325 Mg Tablet) 650 mg PO Q4H PRN PRN Reason: Pain Stop: 11/16/22 09:49 Hydrocodone Bitart/Acetaminophen (Hydrocodone/Acetaminophen 7.5-325mg Tablet) 1tab PO Q6H PRN PRN Reason: Pain Last Admin: 11/17/21 22:37 Dose: 1 tab Albuterol (Albuterol Neb 2.5 Mg/3 Ml Vial.Neb) 2.5 mg INHALATION Q3H PRN PRN Reason: Shortness Of Breath Stop: 11/16/22 09:52 Albuterol/Ipratropium (Ipratropium/Albuterol 0.5-3 Mg 3 Ml Ampul.Neb) 3 ml INHALATION QID.RESP YESSENIA Stop: 11/16/22 15:59 Last Admin: 11/18/21 11:56 Dose: 3 ml Atorvastatin Calcium (Atorvastatin 40 Mg Tablet) 40 mg PO QPM YESSENIA Stop: 11/16/22 20:59 Last Admin: 11/17/21 22:37 Dose: 40 mg Baclofen (Baclofen 10 Mg Tablet) 10 mg PO DAILY PRN PRN Reason: muscle spasms Stop: 11/16/22 11:56 Last Admin: 11/17/21 22:36 Dose: 10 mg Bisacodyl (Bisacodyl 10 Mg Supp.Rect) 10 mg NC DAILY PRN PRN Reason: Constipation Stop: 11/16/22 09:49 Bisacodyl (Bisacodyl 5 Mg Tablet.Dr) 10 mg PO DAILY PRN PRN Reason: Constipation Stop: 11/16/22 09:49 Carvedilol (Carvedilol 12.5 Mg Tablet) 12.5 mg PO BID.WITH.MEALS YESSENIA Stop: 11/16/22 16:59 Last Admin: 11/18/21 08:32 Dose: 12.5 mg Citalopram Hydrobromide (Citalopram 40 Mg Tablet) 40 mg PO DAILY YESSENIA Stop: 11/17/22 08:59 Last Admin: 11/18/21 08:32 Dose: 40 mg Dextrose (Dextrose 50% In Water 25 Gm/50 Ml Syringe) 0 gm IV-PUSH PRN PRN PRN Reason: Hypoglycemia Stop: 11/16/22 09:52 Docusate Sodium (Docusate 100 Mg Capsule) 100 mg PO BID YESSENIA Stop: 11/16/22 20:59 Last Admin: 11/18/21 08:32 Dose: 100 mg Docusate Sodium (Docusate 100 Mg Capsule) 100 mg PO BID YESSEINA Stop: 11/17/22 20:59 Last Admin: 11/17/21 22:36 Dose: Not Given Furosemide (Furosemide 100 Mg/10 Ml Vial) 80 mg IV-PUSH BID@0800,1600 YESSENIA Stop: 11/16/22 13:59 Last Admin: 11/18/21 08:36 Dose: 80 mg Glucose (Dextrose 40% Gel 15 Gm Tube) 0 gm PO PRN PRN PRN Reason: Hypoglycemia Stop: 11/16/22 09:52 Heparin Sodium (Porcine) (Heparin 5,000 Unit/Ml Vial) 5,000 unit SUBCUT Q12HR [facility] Stop: 11/18/22 08:59 Last Admin: 11/18/21 08:33 Dose: 5,000 unit Hydralazine HCl (Hydralazine 50 Mg Tablet) 50 mg PO TID YESSENIA Stop: 11/16/22 13:59 Last Admin: 11/18/21 08:32 Dose: 50 mg Sodium Chloride (0.9% Sodium Chloride 1,000 Ml) 1,000 mls @ 0 mls/hr MISCELLANE.Q0M PRN PRN Reason: Dialysis Stop: 11/17/22 09:06 Last Infusion: 11/17/21 11:11 Dose: Infused Insulin Aspart (Insulin Aspart 300 Units/3 Ml Insuln.Pen) 0 units SUBCUT TID.WM.HS [facility]; Protocol Stop: 11/16/22 11:59 Last Admin: 11/18/21 08:40 Dose: 1 units Isosorbide Mononitrate (Isosorbide Mononitrate 24hr Er 60 Mg Tab.Er.24h) 60 mg PO QAM [facility] Stop: 11/17/22 08:59 Last Admin: 11/18/21 08:32 Dose: 60 mg Lidocaine (Lidocaine 4% Adh..Patch) 1 patch TOPICAL DAILY [facility] Stop: 11/16/22 13:29 Last Admin: 11/18/21 08:33 Dose: 1 patch Multivitamins (Multivitamin 1 Tab Tablet) 1 tab PO DAILY YESSENIA Stop: 11/17/22 08:59 Last Admin: 11/18/21 08:32 Dose: 1 tab Nitroglycerin (Nitroglycerin 0.4 Mg Tab.Subl) 0.4 mg SUBLINGUAL Q5M PRN PRN Reason: Chest Pain Stop: 11/16/22 09:49 Omeprazole (Omeprazole 20 Mg Capsule.Dr) 40 mg PO DAILY [facility] Stop: 11/17/22 08:59 Last Admin: 11/18/21 08:32 Dose: 40 mg Sodium Chloride (Sodium Chloride 0.9 % 10 Ml Syringe) 0 ml IV-PUSH PRN PRN PRN Reason: Flush Stop: 11/16/22 09:49 Last Admin: 11/18/21 08:41 Dose: 10 ml Sodium Chloride (Sodium Chloride 0.9 % 10 Ml Syringe) 0 ml IV-PUSH PRN PRN PRN Reason: Flush Stop: 11/17/22 09:06 Last Admin: 11/17/21 17:55 Dose: 10 ml Vitamin D (Cholecalciferol 25 Mcg (1,000 Units) Tablet) 25 mcg PO DAILY YESSENIA Stop: 11/17/22 08:59 Last Admin: 11/18/21 08:32 Dose: 25 mcg Allergies lisinopril Allergy (Verified 07/10/21 11:48) Cough Results Labs CBC & Chem 7: 11/18/21 05:12 11/18/21 05:12 Labs: 11/18/21 05:12 BUN 75 H Creatinine 3.37 H Radiology Impressions Impressions - last 24 hours: Any impression(s) listed above is documentation that was entered by the reading physician into a diagnostic report(s) for Cinthya Wilson. I have reviewed the report(s) and am incorporating any findings in the treatment plan of this patient where applicable. A&P - Nephrology Assessment/Plan (1) Chronic kidney disease, stage 5: Assessment/Problem Details: Patient has a chronic kidney disease from diabetic and hypertensive nephropathy. CKD has been progressing for this year. I believe the patient has reached end-stage renal disease with frequent admission to the hospital for fluid overload and recurrent pleural effusion. (2) Hyponatremia: Assessment/Problem Details: With the fluid overload. Sodium level is slightly low. Asymptomatic from hyponatremia. (3) Fluid overload: Assessment/Problem Details: Likely from advanced CKD and history of CHF. Patient had recurrent pleural effusion needed thoracocentesis 3 times within a months. Chest x-ray for this admission showed right side pleural effusion. Patient had right arthrocentesis November 16 with 1500 cc fluid removal. Patient currently on Lasix IV (4) Primary hypertension: Assessment/Problem Details: Blood pressure moved with diuresis. Currently on Lasix, carvedilol and hydralazine (5) Anemia: Assessment/Problem Details: Patient had iron deficiency needed IV iron infusion as outpatient. Hemoglobin 9.0 g/dL. Iron saturation 20% with high ferritin 1300 Plan - Unfortunately, were not able to start hemodialysis today due to left upper AV fistula malfunction with difficult cannulation. Vascular surgery team was consulted. Patient likely need fistulogram with angioplasty Friday. There is no urgency for dialysis over the weekend as the patient making urine and there is no kimberly uremic manifestation -Continue Lasix 60 mg twice daily to maintain urine output. -We will continue to monitor blood pressure and adjust blood pressure medications as needed. Blood pressure improved with better diuresis -Patient started on Procrit 4000 units subcu TTS -Pulmonary service is recurrent right pleural effusion. Patient had thoracocentesis done November 16 with 1500 cc fluid removal -Check renal function panel tomorrow. Patient will be set up at [facility] hemodialysis unit before discharge. Patient needs fistulogram and angioplasty of left upper extremity AV fistula before discharge. Renal team will continue to follow. Call if any question Documented By: Geronimo Fofana MD 11/18/21 1314 Signed By: <Electronically signed by Geronimo Fofana MD> 11/18/21 1316 [facility] Work Phone: [phone] 349-437910-09-2022 Progress note Author Carlton Mtz [facility] November 18, 2021 11:59am Note Date/Time November 18, 2021 11 :59am [facility] [address] [place] [address] Hospitalist Progress Note Signed Patient: Cinthya Wilson MR#: [id number] : 1945 Acct:[id number] Age/Sex: 76 / F Adm Date: 2 Loc: Room: [address] [place] [address] Type: ADM IN Attending Dr: Carlton Mtz DO Copies to: ~ Date of Service: 11/18/2021 Subjective Subjective Narrative: Patient is a 76-year-old female with a past medical history of COPD, CKD stage 5, combined systolic and diastolic CHF who was admitted to the hospital 2 days ago due to progressive dyspnea. Two days ago radiology removed 1500 mL of a right-sided transudative pleural effusion. Yesterday hemodialysis was attemptedfor the first time but the fistula was not functioning correctly. Vascular surgery likely to do a fistulogram tomorrow. Upon presentation today, patient was sitting upright in her chair eating breakfast and was able to hold a conversation without any respiratory distress on room oxygen. Patient reported since the thoracentesis 2 days ago she feels muchbetter. Patient states she gets mildly short of breath with exertion from physical therapy as well as night time which is associated with right-sided heaviness/pressure under her right breast. She denies any chest pain. Patient does report occasional cough that is nonproductive. She states has only needed to use additional oxygen at night. She states she is still unable to lay flat. Patient still has a Hobson catheter in place and is urinating without difficulty. Patient also reports feeling bloated in her upper abdomen but that she has had a bowel movement each of the last 2 days. Patient seemed much more comfortable and energetic than when I saw her 2 days ago. Exam Physical Exam Vital Signs: Temp Pulse Resp BP Pulse Ox O2 Del Method O2 Flow Rate 98.2 F 61 20 147/66 H 100 Nasal Cannula 3 11/18/21 08:18 11/18/21 08:18 11/18/21 08:18 11/18/21 08:18 11/18/21 08:18 11/18/21 08:18 11/18/21 08:18 FiO2 2 11/17/21 07:40 Narrative: General: patient is alert, no respiratory distress on room air HEENT: head atraumatic, normocephalic, moist mucous membranes, normal conjunctiva CV: regular rate and rhythm, no murmurs or gallops Resp: mildly diminished lung sounds in right base. No wheezing or crackles appreciated GI: abdomen soft, nontender Extremities: 1+ pitting edema b/l from knees to ankles Skin : dry, no rashes Psych: cooperative, appropriate affect Objective Lab Results CBC & Chem 7: 11/18/21 05:12 11/18/21 05:12 Microbiology Results Microbiology 11/16/21 15:15 Thoracentesis Fluid Aerobic Culture - Preliminary No Growth 1 Day 11/16/21 15:15 Thoracentesis Fluid Anaerobic Culture - Preliminary No Anaerobes Isolated 1 Day 11/16/21 15:15 Thoracentesis Fluid Gram Stain - Final 11/16/21 15:15 Thoracentesis Fluid Fungal Smear - Final Meds Allergies and Active Meds Allergies lisinopril Allergy (Verified 07/10/21 11:48) Cough Active Meds: Active Medications Generic Name Dose Route Start Last Admin Trade Name Freq PRN Reason Stop Dose Admin Acetaminophen 650 mg 11/16/21 09:50 Acetaminophen 325 Mg Tablet PO 11/16/22 09:49 Q4H PRN Pain Hydrocodone Bitart/Acetaminophen 1 tab 11/16/21 13:14 11/17/21 22:37 Hydrocodone/Acetaminophen 7.5-325mg Tablet PO 1 tab Q6H PRN Administration Pain Albuterol 2.5 mg 11/16/21 09:53 Albuterol Neb 2.5 Mg/3 Ml Vial.Neb INHALATION 11/16/22 09:52 Q3H PRN Shortness Of Breath Albuterol/Ipratropium 3 ml 11/16/21 16:00 11/18/21 07:56 Ipratropium/Albuterol 0.5-3 Mg 3 Ml Ampul.Neb INHALATION 11/16/22 15:59 3 ml QID.RESP YESSENIA Administration Atorvastatin Calcium 40 mg 11/16/21 21:00 11/17/21 22:37 Atorvastatin 40 Mg Tablet PO 11/16/22 20:59 40 mg QPM YESSENIA Administration Baclofen 10 mg 11/16/21 11:57 11/17/21 22:36 Baclofen 10 Mg Tablet PO 11/16/22 11:56 10 mg DAILY PRN Administration muscle spasms Bisacodyl 10 mg 11/16/21 09:50 Bisacodyl 10 Mg Supp.Rect NC 11/16/22 09:49 DAILY PRN Constipation Bisacodyl 10 mg 11/16/21 09:50 Bisacodyl 5 Mg Tablet.Dr PO 11/16/22 09:49 DAILY PRN Constipation Carvedilol 12.5 mg 11/16/21 17:00 11/18/21 08:32 Carvedilol 12.5 Mg Tablet PO 11/16/22 16:59 12.5 mg BID.WITH.MEALS YESSENIA Administration Citalopram Hydrobromide 40 mg 11/17/21 09:00 11/18/21 08:32 Citalopram 40 Mg Tablet PO 11/17/22 08:59 40 mg DAILY YESSENIA Administration Dextrose 0 gm 11/16/21 09:53 Dextrose 50% In Water 25 Gm/50 Ml Syringe IV-PUSH 11/16/22 09:52 PRN PRN Hypoglycemia Docusate Sodium 100 mg 11/16/21 21:00 11/18/21 08:32 Docusate 100 Mg Capsule PO 11/16/22 20:59 100 mg BID YESSENIA Administration Docusate Sodium 100 mg 11/17/21 21:00 11/17/21 22:36 Docusate 100 Mg Capsule PO 11/17/22 20:59 Not Given BID YESSENIA Furosemide 80 mg 11/16/21 14:00 11/18/21 08:36 Furosemide 100 Mg/10 Ml Vial IV-PUSH 11/16/22 13:59 80 mg BID@0800,1600 YESSENIA Administration Glucose 0 gm 11/16/21 09:53 Dextrose 40% Gel 15 Gm Tube PO 11/16/22 09:52 PRN PRN Hypoglycemia Heparin Sodium (Porcine) 5,000 unit 11/18/21 09:00 11/18/21 08:33 Heparin 5,000 Unit/Ml Vial SUBCUT 11/18/22 08:59 5,000 unit Q12HR YESSENIA Administration Hydralazine HCl 50 mg 11/16/21 14:00 11/18/21 08:32 Hydralazine 50 Mg Tablet PO 11/16/22 13:59 50 mg TID YESSENIA Administration Sodium Chloride 1,000 mls @ 0 mls/hr 11/17/21 09:07 11/17/21 11:11 0.9% Sodium Chloride 1,000 Ml MISCELLANE 11/17/22 09:06 Infused .Q0M PRN Infusion Dialysis As Directed Insulin Aspart 0 units 11/16/21 12:00 11/18/21 08:40 Insulin Aspart 300 Units/3 Ml Insuln.Pen SUBCUT 11/16/22 11:59 1 units TID.WM.HS YESSENIA Administration Protocol Isosorbide Mononitrate 60 mg 11/17/21 09:00 11/18/21 08:32 Isosorbide Mononitrate 24hr Er 60 Mg Tab.Er.24h PO 11/17/22 08:59 60 mg QAM YESSENIA Administration Lidocaine 1 patch 11/16/21 13:30 11/18/21 08:33 Lidocaine 4% Adh..Patch TOPICAL 11/16/22 13:29 1 patch DAILY YESSENIA Administration Multivitamins 1 tab 11/17/21 09:00 11/18/21 08:32 Multivitamin 1 Tab Tablet PO 11/17/22 08:59 1 tab DAILY YESSENIA Administration Nitroglycerin 0.4 mg 11/16/21 09:50 Nitroglycerin 0.4 Mg Tab.Subl SUBLINGUAL 11/16/22 09:49 Q5M PRN Chest Pain Omeprazole 40 mg 11/17/21 09:00 11/18/21 08:32 Omeprazole 20 Mg Capsule. PO 11/17/22 08:59 40 mg DAILY YESSENIA Administration Sodium Chloride 0 ml 11/16/21 09:50 11/18/21 08:41 Sodium Chloride 0.9 % 10 Ml Syringe IV-PUSH 11/16/22 09:49 10 ml PRN PRN Administration Flush Sodium Chloride 0 ml 11/17/21 09:07 11/17/21 17:55 Sodium Chloride 0.9 % 10 Ml Syringe IV-PUSH 11/17/22 09:06 10 ml PRN PRN Administration Flush Vitamin D 25 mcg 11/17/21 09:00 11/18/21 08:32 Cholecalciferol 25 Mcg (1,000 Units) Tablet PO 11/17/22 08:59 25 mcg DAILY YESSENIA Administration A&P - Hospitalist Assessment/Plan (1) Recurrent right pleural effusion: (2) Chronic kidney disease, stage 5: (3) Sleep apnea: (4) HTN (hypertension): (5) COPD (chronic obstructive pulmonary disease): (6) Diabetes: (7) CAD (coronary artery disease): (8) Anemia: (9) Right shoulder pain: Plan 1. Recurrent right pleural effusion -Thoracentesis performed 2 days ago and 1500 mL of transudative fluid was removed -Lung sounds are currently audible in the right lower base which was not the case prior to thoracentesis -Continue Lasix IV 80 mg twice daily 2. Chronic kidney disease stage V progressing into end-stage renal disease -Failed first attempt at hemodialysis due to problem with fistula -Nephrology was consulted and vascular surgery will likely perform fistulogram tomorrow 3. Anemia -Hemoglobin at 8.4. Repeat CBC and continue to monitor 4. Right shoulder pain -Shoulder x-ray shows new shoulder replacement and hardware appears intact. No acute fracture or dislocation is seen. -Continue lidocaine patches 5. Bladder urinary retention. Hobson catheter in place. Patient had a Hobson catheter on a previous hospital stay in [facility]. Patient experienced difficulty starting [facility] stream at the [facility] facility. Patient does have constipation, which may be causing bladder urinary retention. Now on a bowel regimen. Hobson catheter should be removed tomorrow or the next day, depending on progress. Past medical history: COPD -continue albuterol/ipratropium Hypertension -continue carvedilol, hydralazine Diabetes -continue insulin aspart CAD - continue atorvastatin ++++ ++++ I saw and personally examined this patient on the date of the encounter. I agree with the documentation as written. I personally discussed the case and formulated the plan of care in conjunction with medical student who began this note, and made adjustments to this document at the time of my signature. Documented By: Carlton Mtz DO 0930 Signed By: <Electronically signed by Carlton Mtz DO> 11/18/21 115 [facility] Work Phone: [phone]) 730-585410-08-2022 Progress note Author Carlton Mtz [facility] November 17, 2021 4:35pm Note Date/Time November 17, 2021 4: 20pm [facility] [address] [place] [address] Hospitalist Progress Note Signed Patient: Cinthya Wilson MR#: [id number] : 1945 Acct:[id number] Age/Sex: 76 / F Adm Date: 2 Loc: Room: [address] [place] [address] Type: ADM IN Attending Dr: Carlton Mtz DO Copies to: ~ Date of Service: 11/17/2021 Subjective Subjective Narrative: Clinical update: Yesterday in the radiology department 1500 mL of right-sided pleural effusion was removed. This was a transudate. Today hemodialysis was attempted. This is her first attempt at hemodialysis. But the fistula was not functioning correctly. Vascular surgery will likely need to do a fistulogram on Friday. Cardiogram shows left ventricular ejection fraction slightly depressed at 45 to 50%. She also has grade 3 diastolic dysfunction. Mild valvular aortic stenosis, mild mitral regurgitation, mild tricuspid regurgitation and only mild pulmonary hypertension (RVSP 40.) Subjective: Patient states that her breathing is much better. She states that she did use alittle bit of supplemental oxygen by nasal cannula last night because she thought that she had a sensation of shortness of breath and a mild discomfort under her right breast. No cough. No fevers or chills. No heartburn. No anginal type discomfort or substernal chest pressure. She does complain of constipation. She says at home she uses a strong stimulant but she cannot tell me what it is because it is an equate brand. She does have shoulder pain on the right but it seems to be manageable. She didwork with physical therapy today. Exam Physical Exam Vital Signs: Temp Pulse Resp BP Pulse Ox O2 Del Method O2 Flow Rate 98.2 F 60 20 129/60 93 L Room Air 1 11/17/21 15:10 11/17/21 16:07 11/17/21 16:07 11/17/21 15:10 11/17/21 15:10 11/17/21 16:00 11/17/21 07:44 FiO2 2 11/17/21 07:40 Narrative: GEN: Awake, alert, oriented x 3. Does look much more energetic and much more comfortable than yesterday when I admitted her Lungs: Moderately diminished in the right base. Few scattered crackles.. No wheezing. Very comfortable respirations. Heart: Regular rate and rhythm, no murmurs, rubs, or gallops. Heart sounds aresomewhat distant to auscultation. Abdomen: Soft, normal bowel sounds, no rigidity, guarding, or acute peritoneal signs. Extremities: No swelling or cords in the calves bilaterally, does appear to have 2+ pitting edema throughout both legs from the knees down to ankles bilaterally. Psychiatric: Much brighter affect today. Pleasant and communicative and making good eye contact. Neuro: No gross focal or lateralizing deficits. Objective Lab Results CBC & Chem 7: 11/17/21 04:55 11/17/21 04:55 Microbiology Results Microbiology 11/16/21 15:15 Thoracentesis Fluid Aerobic Culture - Preliminary No Growth 1 Day 11/16/21 15:15 Thoracentesis Fluid Anaerobic Culture - Preliminary No Anaerobes Isolated 1 Day 11/16/21 15:15 Thoracentesis Fluid Gram Stain - Final 11/16/21 15:15 Thoracentesis Fluid Fungal Smear - Final Meds Allergies and Active Meds Allergies lisinopril Allergy (Verified 07/10/21 11:48) Cough Active Meds: Active Medications Generic Name Dose Route Start Last Admin Trade Name Freq PRN Reason Stop Dose Admin Acetaminophen 650 mg 11/16/21 09:50 Acetaminophen 325 Mg Tablet PO 11/16/22 09:49 Q4H PRN Pain Hydrocodone Bitart/Acetaminophen 1 tab 11/16/21 13:14 11/17/21 11:57 Hydrocodone/Acetaminophen 7.5-325mg Tablet PO 1 tab Q6H PRN Administration Pain Albuterol 2.5 mg 11/16/21 09:53 Albuterol Neb 2.5 Mg/3 Ml Vial.Neb INHALATION 11/16/22 09:52 Q3H PRN Shortness Of Breath Albuterol/Ipratropium 3 ml 11/16/21 16:00 11/17/21 16:05 Ipratropium/Albuterol 0.5-3 Mg 3 Ml Ampul.Neb INHALATION 11/16/22 15:59 3 ml QID.RESP YESSENIA Administration Atorvastatin Calcium 40 mg 11/16/21 21:00 11/16/21 21:15 Atorvastatin 40 Mg Tablet PO 11/16/22 20:59 40 mg QPM YESSENIA Administration Baclofen 10 mg 11/16/21 11:57 11/16/21 22:34 Baclofen 10 Mg Tablet PO 11/16/22 11:56 10 mg DAILY PRN Administration muscle spasms Bisacodyl 10 mg 11/16/21 09:50 Bisacodyl 10 Mg Supp.Rect NC 11/16/22 09:49 DAILY PRN Constipation Bisacodyl 10 mg 11/16/21 09:50 Bisacodyl 5 Mg Tablet.Dr PO 11/16/22 09:49 DAILY PRN Constipation Carvedilol 12.5 mg 11/16/21 17:00 11/17/21 07:45 Carvedilol 12.5 Mg Tablet PO 11/16/22 16:59 Not Given BID.WITH.MEALS YESSENIA Citalopram Hydrobromide 40 mg 11/17/21 09:00 11/17/21 11:58 Citalopram 40 Mg Tablet PO 11/17/22 08:59 40 mg DAILY YESSENIA Administration Dextrose 0 gm 11/16/21 09:53 Dextrose 50% In Water 25 Gm/50 Ml Syringe IV-PUSH 11/16/22 09:52 PRN PRN Hypoglycemia Docusate Sodium 100 mg 11/16/21 21:00 11/17/21 12:05 Docusate 100 Mg Capsule PO 11/16/22 20:59 100 mg BID YESSENIA Administration Furosemide 80 mg 11/16/21 14:00 11/17/21 12:25 Furosemide 100 Mg/10 Ml Vial IV-PUSH 11/16/22 13:59 80 mg BID@0800,1600 YESSENIA Administration Glucose 0 gm 11/16/21 09:53 Dextrose 40% Gel 15 Gm Tube PO 11/16/22 09:52 PRN PRN Hypoglycemia Hydralazine HCl 50 mg 11/16/21 14:00 11/17/21 14:34 Hydralazine 50 Mg Tablet PO 11/16/22 13:59 50 mg TID YESSENIA Administration Sodium Chloride 1,000 mls @ 0 mls/hr 11/17/21 09:07 11/17/21 11:11 0.9% Sodium Chloride 1,000 Ml MISCELLANE 11/17/22 09:06 Infused .Q0M PRN Infusion Dialysis As Directed Insulin Aspart 0 units 11/16/21 12:00 11/17/21 12:05 Insulin Aspart 300 Units/3 Ml Insuln.Pen SUBCUT 11/16/22 11:59 2 units TID.WM.HS YESSENIA Administration Protocol Isosorbide Mononitrate 60 mg 11/17/21 09:00 11/17/21 11:58 Isosorbide Mononitrate 24hr Er 60 Mg Tab.Er.24h PO 11/17/22 08:59 60 mg QAM YESSENIA Administration Lidocaine 1 patch 11/16/21 13:30 11/17/21 11:58 Lidocaine 4% Adh..Patch TOPICAL 11/16/22 13:29 1 patch DAILY YESSENIA Administration Multivitamins 1 tab 11/17/21 09:00 11/17/21 11:57 Multivitamin 1 Tab Tablet PO 11/17/22 08:59 1 tab DAILY YESSENIA Administration Nitroglycerin 0.4 mg 11/16/21 09:50 Nitroglycerin 0.4 Mg Tab.Subl SUBLINGUAL 11/16/22 09:49 Q5M PRN Chest Pain Omeprazole 40 mg 11/17/21 09:00 11/17/21 11:58 Omeprazole 20 Mg Capsule.Dr PO 11/17/22 08:59 40 mg DAILY YESSENIA Administration Sodium Chloride 0 ml 11/16/21 09:50 Sodium Chloride 0.9 % 10 Ml Syringe IV-PUSH 11/16/22 09:49 PRN PRN Flush Sodium Chloride 0 ml 11/17/21 09:07 11/17/21 12:27 Sodium Chloride 0.9 % 10 Ml Syringe IV-PUSH 11/17/22 09:06 10 ml PRN PRN Administration Flush Vitamin D 25 mcg 11/17/21 09:00 11/17/21 11:58 Cholecalciferol 25 Mcg (1,000 Units) Tablet PO 11/17/22 08:59 25 mcg DAILY YESSENIA Administration A&P - Hospitalist Assessment/Plan (1) Recurrent right pleural effusion: (2) Chronic kidney disease, stage 5: (3) Sleep apnea: (4) HTN (hypertension): (5) COPD (chronic obstructive pulmonary disease): (6) Diabetes: (7) CAD (coronary artery disease): (8) Anemia: (9) Right shoulder pain: Plan Assessment: Recurrent right-sided pleural effusion, transudative Continue disease stage V progressing into end-stage renal disease. Chronic diastolic congestive heart failure. Diabetes mellitus type 2, with hyperglycemia. Hypertension. Constipation. Plan: Appreciate pulmonology input. Appreciate nephrology input. Awaiting vascular surgery consult. Diabetes management with Accu-Cheks before meals and at bedtime and in the middle of the night at 300 and sliding scale insulin level 1. Hemoglobin A1c is acceptable at 7.2. Documented By: Carlton Mtz DO 8 Signed By: <Electronically signed by Carlton Mtz DO> 11/17/21 163 [facility] Work Phone: [phone] Progress note Author Geronimo Fofana [facility] November 17, 2021 12:56pm Note Date/Time November 17, 2021 12 :56pm [facility] [address] [place] [address] Nephrology Progress Note Signed Patient: Cinthya Wilson MR#: [id number] : 1945 Acct:[id number] Age/Sex: 76 / F Adm Date: 2 Loc: Room: 2U1428-5 Type: ADM IN Attending Dr: Carlton Mtz DO Copies to: ~ Date of Service: 11/17/2021 Subjective Subjective Narrative: This is 76-year-old female patient with a past medical history of CKD stage IV, diabetes, COPD, systolic and diastolic heart failure. Patient follows with me in the renal clinic and the last renal office visit was in July when her creatinine was 2.4. Patient has CKD stage IV/V with baseline creatinine fluctuating 2.4 to 3 mg deciliter depending on diuretics dose and volume status. Patient was admitted twice to outside hospital for pneumonia in August and September. Then patient had a fall last month and broke her right shoulder and wasadmitted to. [facility] been [facility] since Mondays. Patient developed sudden onset of shortness of breath today and was reported to the hospital. 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 Patient is on Lasix at home Chest x-ray showed large right-sided pleural effusion. Patient currently on 2 Lnasal cannula. Hobson catheter placed which is draining yellow urine. Patient has left lower arm AV fistula which is ready to be used for dialysis as per the vascular note from September Blood pressure seems well controlled. Echocardiogram done today Patient is scheduled to go to for right-sided paracentesis today. Renal team is consulted for worsening kidney function. Serum creatinine up to 3.4 and GFR down to 13 mL/min Interval history: Patient was seen and examined in her room. Patient had right side thoracocentesis yesterday with 1500 cc fluid removal. Patient said her breathing improved tremendously. She is currently on room air Were not able to run hemodialysis in today due to cannulation difficulty. Vascular surgeon was consulted and likely patient needs fistulogram with angioplasty Friday Patient responding well to Lasix 80 mg twice daily. Kidney function stable Denies nausea vomiting. No chest pain. No cough. No diarrhea. No abdominal pain. Exam Physical Exam Vital Signs: Temp Pulse Resp BP Pulse Ox O2 Del Method O2 Flow Rate 98.4 F 59 L 18 132/61 94 L Room Air 1 11/17/21 11:45 11/17/21 11:50 11/17/21 11:50 11/17/21 11:45 11/17/21 11:45 11/17/21 11:45 11/17/21 07:44 Narrative: General: Patient in no acute distress Head :atraumatic normocephalic Eyes: PERRLA. Neck: no JVD no bruit. Heart: S1-S2. RRR Respiratory: Clear to auscultation bilaterally. No crackles no wheezing Abdomen: Soft, positive bowel sounds,no tenderness. Neurology: Awake alert oriented x3. No focal deficits Extremity. No cyanosis. No edema Skin: No skin rash Dialysis access: Left upper extremity AV fistula which is positive for bruit andthrill Objective Intake and Output I&O: Intake & Output 11/14/21 11/15/21 11/16/21 11/17/21 23:59 23:59 23:59 23:59 Intake Total 150 / 150 51 / 51 Output Total 1250 / 1250 650 / 650 Balance -1100 / -1100 -599 / -599 Weight 71.2 kg 70.9 kg Meds and Allergies Meds: Active Medications Acetaminophen (Acetaminophen 325 Mg Tablet) 650 mg PO Q4H PRN PRN Reason: Pain Stop: 11/16/22 09:49 Hydrocodone Bitart/Acetaminophen (Hydrocodone/Acetaminophen 7.5-325mg Tablet) 1tab PO Q6H PRN PRN Reason: Pain Last Admin: 11/17/21 11:57 Dose: 1 tab Albuterol (Albuterol Neb 2.5 Mg/3 Ml Vial.Neb) 2.5 mg INHALATION Q3H PRN PRN Reason: Shortness Of Breath Stop: 11/16/22 09:52 Albuterol/Ipratropium (Ipratropium/Albuterol 0.5-3 Mg 3 Ml Ampul.Neb) 3 ml INHALATION QID.RESP YESSENIA Stop: 11/16/22 15:59 Last Admin: 11/17/21 11:48 Dose: 3 ml Atorvastatin Calcium (Atorvastatin 40 Mg Tablet) 40 mg PO QPM YESSENIA Stop: 11/16/22 20:59 Last Admin: 11/16/21 21:15 Dose: 40 mg Baclofen (Baclofen 10 Mg Tablet) 10 mg PO DAILY PRN PRN Reason: muscle spasms Stop: 11/16/22 11:56 Last Admin: 11/16/21 22:34 Dose: 10 mg Bisacodyl (Bisacodyl 10 Mg Supp.Rect) 10 mg NC DAILY PRN PRN Reason: Constipation Stop: 11/16/22 09:49 Bisacodyl (Bisacodyl 5 Mg Tablet.Dr) 10 mg PO DAILY PRN PRN Reason: Constipation Stop: 11/16/22 09:49 Carvedilol (Carvedilol 12.5 Mg Tablet) 12.5 mg PO BID.WITH.MEALS [facility] Stop: 11/16/22 16:59 Last Admin: 11/17/21 07:45 Dose: Not Given Citalopram Hydrobromide (Citalopram 40 Mg Tablet) 40 mg PO DAILY [facility] Stop: 11/17/22 08:59 Last Admin: 11/17/21 11:58 Dose: 40 mg Dextrose (Dextrose 50% In Water 25 Gm/50 Ml Syringe) 0 gm IV-PUSH PRN PRN PRN Reason: Hypoglycemia Stop: 11/16/22 09:52 Docusate Sodium (Docusate 100 Mg Capsule) 100 mg PO BID [facility] Stop: 11/16/22 20:59 Last Admin: 11/17/21 12:05 Dose: 100 mg Enoxaparin Sodium (Enoxaparin 40 Mg/0.4 Ml Syringe) 40 mg SUBCUT DAILY@10 [facility] Stop: 11/17/22 09:59 Last Admin: 11/17/21 12:00 Dose: 40 mg Furosemide (Furosemide 100 Mg/10 Ml Vial) 80 mg IV-PUSH BID@0800,1600 [facility] Stop: 11/16/22 13:59 Last Admin: 11/17/21 12:25 Dose: 80 mg Glucose (Dextrose 40% Gel 15 Gm Tube) 0 gm PO PRN PRN PRN Reason: Hypoglycemia Stop: 11/16/22 09:52 Hydralazine HCl (Hydralazine 50 Mg Tablet) 50 mg PO TID [facility] Stop: 11/16/22 13:59 Last Admin: 11/17/21 09:15 Dose: Not Given Sodium Chloride (0.9% Sodium Chloride 1,000 Ml) 1,000 mls @ 0 mls/hr MISCELLANE.Q0M PRN PRN Reason: Dialysis Stop: 11/17/22 09:06 Last Infusion: 11/17/21 11:11 Dose: Infused Insulin Aspart (Insulin Aspart 300 Units/3 Ml Insuln.Pen) 0 units SUBCUT TID.WM.HS [facility]; Protocol Stop: 11/16/22 11:59 Last Admin: 11/17/21 12:05 Dose: 2 units Isosorbide Mononitrate (Isosorbide Mononitrate 24hr Er 60 Mg Tab.Er.24h) 60 mg PO QAM [facility] Stop: 11/17/22 08:59 Last Admin: 11/17/21 11:58 Dose: 60 mg Lidocaine (Lidocaine 4% Adh..Patch) 1 patch TOPICAL DAILY YESSENIA Stop: 11/16/22 13:29 Last Admin: 11/17/21 11:58 Dose: 1 patch Multivitamins (Multivitamin 1 Tab Tablet) 1 tab PO DAILY YESSENIA Stop: 11/17/22 08:59 Last Admin: 11/17/21 11:57 Dose: 1 tab Nitroglycerin (Nitroglycerin 0.4 Mg Tab.Subl) 0.4 mg SUBLINGUAL Q5M PRN PRN Reason: Chest Pain Stop: 11/16/22 09:49 Omeprazole (Omeprazole 20 Mg Capsule.Dr) 40 mg PO DAILY YESSENIA Stop: 11/17/22 08:59 Last Admin: 11/17/21 11:58 Dose: 40 mg Sodium Chloride (Sodium Chloride 0.9 % 10 Ml Syringe) 0 ml IV-PUSH PRN PRN PRN Reason: Flush Stop: 11/16/22 09:49 Sodium Chloride (Sodium Chloride 0.9 % 10 Ml Syringe) 0 ml IV-PUSH PRN PRN PRN Reason: Flush Stop: 11/17/22 09:06 Last Admin: 11/17/21 12:27 Dose: 10 ml Vitamin D (Cholecalciferol 25 Mcg (1,000 Units) Tablet) 25 mcg PO DAILY YESSENIA Stop: 11/17/22 08:59 Last Admin: 11/17/21 11:58 Dose: 25 mcg Allergies lisinopril Allergy (Verified 07/10/21 11:48) Cough Results Labs CBC & Chem 7: 11/17/21 04:55 11/17/21 04:55 Labs: 11/17/21 04:55 BUN 76 H Creatinine 3.32 H Iron Saturation 20.0 Ferritin 1362.5 H Radiology Impressions Impressions - last 24 hours: Impressions Thoracentesis Ultrasound 11/16/21 11:18 IMPRESSION: STATUS POST RIGHT ULTRASOUND-GUIDED THORACENTESIS Impression dictated by: Dianna Pedro M.D.11/16/2021 4:16 PM Dictation Location: [facility]- Shoulder X-Ray 11/16/21 13:13 IMPRESSION: NEW SHOULDER REPLACEMENT. QUESTION OF POSTOPERATIVE CHANGE INVOLVING THE ACROMION. CORRELATION WITH SURGICAL PROCEDURE IS SUGGESTED. Impression dictated by: Dianna Pedro M.D.11/16/2021 6:11 PM Dictation Location: [facility] Chest X-Ray 11/16/21 15:28 IMPRESSION: There is a right-sided pleural effusion which has significantly decreased in size. There is no pneumothorax. Impression dictated by: Jossie Díaz M.D.11/16/2021 3:43 PM Dictation Location: [place] [address] Chest X-Ray 11/17/21 05:00 IMPRESSION: Developing mild RIGHT basilar pleural-parenchymal changes. Continued mild LEFT basilar pleural-parenchymal change. Impression dictated by: David Archer M.D.11/17/2021 7:37 AM Dictation Location: [place] [address] Any impression(s) listed above is documentation that was entered by the reading physician into a diagnostic report(s) for Cinthya Wilson. I have reviewed the report(s) and am incorporating any findings in the treatment plan of this patient where applicable. A&P - Nephrology Assessment/Plan (1) Chronic kidney disease, stage 5: Assessment/Problem Details: Patient has a chronic kidney disease from diabetic and hypertensive nephropathy. CKD has been progressing for this year. I believe the patient has reached end-stage renal disease with frequent admission to the hospital for fluid overload and recurrent pleural effusion. (2) Hyponatremia: Assessment/Problem Details: With the fluid overload. Sodium level is slightly low. Asymptomatic from hyponatremia. (3) Fluid overload: Assessment/Problem Details: Likely from advanced CKD and history of CHF. Patient had recurrent pleural effusion needed thoracocentesis 3 times within a months. Chest x-ray for this admission showed right side pleural effusion. Patient had right arthrocentesis November 16 with 1500 cc fluid removal. Patient currently only IV l (4) Primary hypertension: Assessment/Problem Details: Blood pressure moved with diuresis. Currently on Lasix, carvedilol and hydralazine (5) Anemia: Assessment/Problem Details: Patient had iron deficiency needed IV iron infusion as outpatient. Hemoglobin 9.0 g/dL. Iron saturation 20% with high ferritin 1300 Plan - Unfortunately, were not able to start hemodialysis today due to left upper AV fistula malfunction with difficult cannulation. Vascular surgery team was consulted. Patient likely need fistulogram with angioplasty Friday. There is no urgency for dialysis over the weekend as the patient making urine and there is no kimberly uremic manifestation -Continue Lasix 60 mg twice daily to maintain urine output. -We will continue to monitor blood pressure and adjust blood pressure medications as needed. Blood pressure improved with better diuresis -I will start the patient on Procrit 4000 units subcu TTS -Pulmonary service is recurrent right pleural effusion. Patient had thoracocentesis done November 16 with 1500 cc fluid removal -Check renal function panel tomorrow. Patient will be set up at [facility] hemodialysis unit before discharge. Patient needs fistulogram and angioplasty of left upper extremity AV fistula before discharge. Renal team will continue to follow. Call if any question Documented By: Geronimo Fofana MD 11/17/21 1243 Signed By: <Electronically signed by Geronimo Fofana MD> 11/17/21 1250 [facility] Work Phone: [phone] Progress note Author Danny Pitts [facility] November 17, 2021 11:16am Note Date/Time November 17, 2021 11 :06am [facility] [address] [place] [address] Pulmonology Progress Note Signed Patient: Cinthya Wilson MR#: [id number] : 1945 Acct:[id number] Age/Sex: 76 / F Adm Date: 2 Loc: Room: [address] [place] [address] Type: ADM IN Attending Dr: Carlton Mtz DO Copies to: ~ Date of Service: 11/17/2021 Subjective Subjective Narrative: Underwent thoracentesis yesterday with 1.5 L of fluid removed. She says she felt quite a bit better after that. Overnight did feel a little bit more short of breath and needed to raise the head of her bed but still has remained on roomair. Pending hemodialysis today. Exam Physical Exam Vital Signs: Temp Pulse Resp BP Pulse Ox O2 Del Method O2 Flow Rate 98.1 F 60 18 134/64 95 Room Air 1 11/17/21 07:42 11/17/21 08:09 11/17/21 08:09 11/17/21 07:42 11/17/21 07:47 11/17/21 08:09 11/17/21 07:44 Narrative: General: AOx3, NAD, sitting up in bed comfortably on room air Head: Normocephalic and atraumatic Neck: No obvious elevation of JVP Mouth: Moist mucous membranes Pulmonary: Faint bibasilar lower crackles but no dullness to percussion today Cardiovascular: There is a regular rate and rhythm, normal S1 and S2, no murmurs, rubs, gallops Abdomen: Soft, nondistended, nontender to palpation Extremities: There is no clubbing of the upper extremities, there was no lower extremity edema Neurological: follows all commands, no gross focal deficits Psych: mood normal, affect normal Objective Intake and Output I&O - Last 24 Hours: Intake & Output 11/16/21 11/17/21 11/17/21 23:59 07:59 15:59 Intake Total 150 / 150 50 / 50 Output Total 550 / 1250 650 / 650 Balance -400 / -1100 -600 / -600 Weight 70.9 kg Labs CBC & Chem 7: 11/17/21 04:55 11/17/21 04:55 Microbiology Micro: Microbiology 11/16/21 15:15 Fungal Smear - Final Thoracentesis Fluid 11/16/21 15:15 Gram Stain - Final Thoracentesis Fluid Additional Results Results Comments: Chest x-ray from 11/16/2021, type personally reviewed. This is immediately post thoracentesis and there was near complete evacuation of the right pleural effusion. Chest x-ray from 11/17/2021, it appears that there has been slight recurrence of bilateral pleural effusion with increase in cephalization and some fluid in the fissure on the right as compared to day prior Assessment/Plan Assessment/Plan (1) Acute hypoxemic respiratory failure: (2) Bilateral pleural effusion: (3) Chronic kidney disease, stage 5: (4) Acute heart failure: Plan Assessment: 1. Acute hypoxemic respiratory failure, from #2, improving 2. Bilateral pleural effusion, larger on the right small on the left, s/p R thoracentesis of 1.5L on 11/17/21 3. CKD stage V 4. Heart failure EF 45-50% Plan: ? In review of her pleural fluid is consistent with transudate from volume overload status ? She is pending starting hemodialysis and her renal disease is certainly contributing or the sole cause of her recurrence of pleural effusion ? Her EF was 45% so in combination with her CKD this is likely contributing to recurrence of pleural effusion ? Still awaiting outside records but suspicious that her recent hospitalizationswith pleural effusion were likely secondary to volume status ? While she had near complete evacuation of her pleural effusion yesterday, evenchest x-ray from 11/16 to this morning on 11/17 there has already been some slow recurrence of fluid on the right, should be able to manage this with hemodialysis and volume status - I will sign off. If she has significant re-accumulation of pleural effusion not responsive to HD/volume management please re-consult and can re-evaluate at that time. Documented By: Danny Pitts MD 11/17/21 1105 Signed By: <Electronically signed by Danny Pitts MD> 11/17/21 1116 [facility] Work Phone: [phone] Consult note Author Geronimo Fofana [facility] November 16, 2021 3:26pm Note Date/Time November 16, 2021 3: 26pm [facility] [address] [place] [address] Nephrology Consult Note Signed Patient: Cinthya Wilson MR#: [id number] : 1945 Acct:[id number] Age/Sex: 76 / F Adm Date: 2 Loc: Room: [address] [place] [address] Type: ADM IN Attending Dr: Carlton Mtz DO Copies to: MD Lily Allen II, MD Kristopher L Lindbloom, DO~ Providers Consult Date: 11/16/21 Requesting Provider: Carlton Mtz DO Primary Care Provider: Lily Aldrich II, MD [facility] Reason for Consult: CKD progression and fluid overload History of Present Illness: This is 76-year-old female patient with a past medical history of CKD stage IV, diabetes, COPD, systolic and diastolic heart failure. Patient follows with me in the renal clinic and the last renal office visit was in July when her creatinine was 2.4. Patient has CKD stage IV/V with baseline creatinine fluctuating 2.4 to 3 mg deciliter depending on diuretics dose and volume status. Patient was admitted twice to outside hospital for pneumonia in August and September. Then patient had a fall last month and broke her right shoulder and wasadmitted to. Patient has been been in [facility] after hospital discharge since Mondays. Patient developed sudden onset of shortness of breath today and was reported to the hospital. 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 Patient is on Lasix at home Chest x-ray showed large right-sided pleural effusion. Patient currently on 2 Lnasal cannula. Hobson catheter placed which is draining yellow urine. Patient has left lower arm AV fistula which is ready to be used for dialysis as per the vascular note from September Blood pressure seems well controlled. Echocardiogram done today Patient is scheduled to go to IR for right-sided paracentesis today. Renal team is consulted for worsening kidney function. Serum creatinine up to 3.4 and GFR down to 13 mL/min Review of Systems Review of Systems Review of systems: 12 system review is negative except for shortness of breath and generalized weakness and shoulder pain PMFSH Vaccinated for COVID-19?: Yes Medical History (Updated 11/16/21 @ 15:21 by Geronimo Fofana MD) Anemia Anxiety Anxiety and depression Arthritis CAD (coronary artery disease) Cataract had bilateral PHACO Cervical spinal stenosis CHF (congestive heart failure) Chronic back pain Chronic kidney disease COPD (chronic obstructive pulmonary disease) Diabetes GERD (gastroesophageal reflux disease) HTN (hypertension) Hyperlipidemia Insomnia Irregular heart rhythm prior to stent placement per pt report Lumbosacral spondylolysis LVH (left ventricular hypertrophy) Neck pain with history of cervical spinal surgery Neuropathy right thigh and feet Pneumonia Polymyalgia Skin cancer mohs procedure for removal Sleep apnea Surgical History H/O heart artery stent History of appendectomy History of back surgery lumbar History of x2 History of carpal tunnel release bilateral History of coronary angioplasty with insertion of stent History of D&C History of shoulder surgery rt shoulder History of tonsillectomy History of total abdominal hysterectomy and bilateral salpingo-oophorectomy Family History Father Heart disease Cancer Mother Cancer Diabetes Social History Smoking Status: Never smoker Substance Use Type: None Social History Comments: adult son Meds Medications & Allergies Allergies lisinopril Allergy (Verified 07/10/21 11:48) Cough Home Medications atorvastatin 40 mg tablet 40 mg PO QPM 11/19/16 [History Confirmed 11/16/21] furosemide 40 mg tablet 60 mg PO QAM 11/19/16 [History Confirmed 06/26/21] hydralazine 50 mg tablet 50 mg PO TID 11/19/16 [History Confirmed 11/16/21] insulin human U-100 NPH-regulr 70-30 mix 100 unit/mL subcutaneous susp 10 unit subcut DAILY 11/19/16 [History Confirmed 11/16/21] isosorbide mononitrate 60 mg tablet,extended release 24 hr 60 mg PO QAM 11/19/16[History Confirmed 11/16/21] multivitamin 1 tab PO DAILY 09/07/19 [History Confirmed 11/16/21] omeprazole 40 mg capsule,delayed release 40 mg PO DAILY 09/07/19 [History Confirmed 11/16/21] aspirin 81 mg tablet,delayed release 81 mg PO DAILY 11/25/19 [History Confirmed 11/16/21] carvedilol 3.125 mg tablet 12.5 mg PO BID 11/25/19 [History Confirmed 11/16/21] cholecalciferol (vitamin D3) 25 mcg (1,000 unit) tablet (Vitamin D3) 25 mcg PO DAILY 11/25/19 [History Confirmed 11/16/21] citalopram 40 mg tablet 40 mg PO DAILY 11/25/19 [History Confirmed 11/16/21] umeclidinium 62.5 mcg-vilanterol 25 mcg/actuation powdr for inhalation (Anoro Ellipta) 1 inh inhalation DAILY 11/25/19 [History Confirmed 11/16/21] exenatide microspheres 2 mg/0.85 mL subcutaneous auto-injector (Kamari James) 2 mg subcut QWEEK diabetes 05/16/20 [History Confirmed 06/26/21] albuterol sulfate 0.63 mg/3 mL solution for nebulization 0.63 mg inhalation QID PRN SOB 06/26/21 [History Confirmed 11/16/21] baclofen 10 mg tablet 10 mg PO DAILY PRN muscle spasms 06/26/21 [History Confirmed 11/16/21] docusate sodium 250 mg capsule 250 mg PO DAILY 11/16/21 [History Confirmed 11/16/21] hydrocodone 7.5 mg-acetaminophen 325 mg tablet 1 tab PO Q6H PRN Pain 11/16/21 [History Confirmed 11/16/21] Active Medications: Active Medications Acetaminophen (Acetaminophen 325 Mg Tablet) 650 mg PO Q4H PRN PRN Reason: Pain Stop: 11/16/22 09:49 Hydrocodone Bitart/Acetaminophen (Hydrocodone/Acetaminophen 7.5-325mg Tablet) 1tab PO Q6H PRN PRN Reason: Pain Albuterol (Albuterol Neb 2.5 Mg/3 Ml Vial.Neb) 2.5 mg INHALATION Q3H PRN PRN Reason: Shortness Of Breath Stop: 11/16/22 09:52 Albuterol/Ipratropium (Ipratropium/Albuterol 0.5-3 Mg 3 Ml Ampul.Neb) 3 ml INHALATION QID.RESP YESSENIA Stop: 11/16/22 15:59 Atorvastatin Calcium (Atorvastatin 40 Mg Tablet) 40 mg PO QPM YESSENIA Stop: 11/16/22 20:59 Baclofen (Baclofen 10 Mg Tablet) 10 mg PO DAILY PRN PRN Reason: muscle spasms Stop: 11/16/22 11:56 Bisacodyl (Bisacodyl 10 Mg Supp.Rect) 10 mg NC DAILY PRN PRN Reason: Constipation Stop: 11/16/22 09:49 Bisacodyl (Bisacodyl 5 Mg Tablet.Dr) 10 mg PO DAILY PRN PRN Reason: Constipation Stop: 11/16/22 09:49 Carvedilol (Carvedilol 12.5 Mg Tablet) 12.5 mg PO BID.WITH.MEALS YESSENIA Stop: 11/16/22 16:59 Citalopram Hydrobromide (Citalopram 40 Mg Tablet) 40 mg PO DAILY YESSENIA Stop: 11/17/22 08:59 Dextrose (Dextrose 50% In Water 25 Gm/50 Ml Syringe) 0 gm IV-PUSH PRN PRN PRN Reason: Hypoglycemia Stop: 11/16/22 09:52 Docusate Sodium (Docusate 100 Mg Capsule) 100 mg PO BID YESSENIA Stop: 11/16/22 20:59 Enoxaparin Sodium (Enoxaparin 40 Mg/0.4 Ml Syringe) 40 mg SUBCUT DAILY@10 YESSENIA Stop: 11/17/22 09:59 Furosemide (Furosemide 100 Mg/10 Ml Vial) 80 mg IV-PUSH BID@0800,1600 YESSENIA Stop: 11/16/22 13:59 Last Admin: 11/16/21 14:45 Dose: 80 mg Glucose (Dextrose 40% Gel 15 Gm Tube) 0 gm PO PRN PRN PRN Reason: Hypoglycemia Stop: 11/16/22 09:52 Hydralazine HCl (Hydralazine 50 Mg Tablet) 50 mg PO TID YESSENIA Stop: 11/16/22 13:59 Last Admin: 11/16/21 14:45 Dose: 50 mg Insulin Aspart (Insulin Aspart 300 Units/3 Ml Insuln.Pen) 0 units SUBCUT TID.WM.HS [facility]; Protocol Stop: 11/16/22 11:59 Last Admin: 11/16/21 12:15 Dose: 1 units Isosorbide Mononitrate (Isosorbide Mononitrate 24hr Er 60 Mg Tab.Er.24h) 60 mg PO QAM [facility] Stop: 11/17/22 08:59 Lidocaine (Lidocaine 4% Adh..Patch) 1 patch TOPICAL DAILY [facility] Stop: 11/16/22 13:29 Last Admin: 11/16/21 14:45 Dose: 1 patch Multivitamins (Multivitamin 1 Tab Tablet) 1 tab PO DAILY [facility] Stop: 11/17/22 08:59 Nitroglycerin (Nitroglycerin 0.4 Mg Tab.Subl) 0.4 mg SUBLINGUAL Q5M PRN PRN Reason: Chest Pain Stop: 11/16/22 09:49 Omeprazole (Omeprazole 20 Mg Capsule.Dr) 40 mg PO DAILY [facility] Stop: 11/17/22 08:59 Sodium Chloride (Sodium Chloride 0.9 % 10 Ml Syringe) 0 ml IV-PUSH PRN PRN PRN Reason: Flush Stop: 11/16/22 09:49 Vitamin D (Cholecalciferol 25 Mcg (1,000 Units) Tablet) 25 mcg PO DAILY [facility] Stop: 11/17/22 08:59 Exam Physical Exam Vital Signs: Temp Pulse Resp BP Pulse Ox O2 Del Method O2 Flow Rate 98.1 F 63 24 156/68 H 98 Nasal Cannula 2 11/16/21 11:50 11/16/21 11:56 11/16/21 11:56 11/16/21 11:50 11/16/21 11:55 11/16/21 11:55 11/16/21 11:55 Narrative: General: In mild distress from shortness of breath Head :atraumatic normocephalic Eyes: PERRLA. Neck: no JVD no bruit. Heart: S1-S2. RRR Respiratory: Decreased breath sounds over the lower half of right lung. Abdomen: Soft, positive bowel sounds,no tenderness. Neurology: Awake alert oriented x3. No focal deficits Extremity. No cyanosis. No edema Skin: No skin rash Dialysis access: Left upper extremity AV fistula which is positive for bruit andthrill Results Labs CBC & Chem 7: 11/16/21 11:25 11/16/21 11:25 Labs: 11/16/21 11:25 BUN 76 H Creatinine 3.42 H Albumin 2.6 L Radiology Impressions Impressions - last 24 hours: Impressions Chest X-Ray 11/16/21 08:54 IMPRESSION: Large right pleural effusion. Impression dictated by: David Archer M.D.11/16/2021 9:39 AM Dictation Location: [place] [address] Any impression(s) listed above is documentation that was entered by the reading physician into a diagnostic report(s) for Cinthya Wilson. I have reviewed the report(s) and am incorporating any findings in the treatment plan of this patient where applicable. A&P - Nephrology Assessment/Plan (1) Chronic kidney disease, stage 5: Assessment/Problem Details: Patient has a chronic kidney disease from diabetic and hypertensive nephropathy. CKD has been progressing for this year. I believe the patient has reached end-stage renal disease with frequent admission to the hospital for fluid overload and recurrent pleural effusion. Patient has a functioning left upper extremity AV fistula. (2) Hyponatremia: Assessment/Problem Details: With the fluid overload. Sodium level is slightly low. Asymptomatic from hyponatremia. (3) Fluid overload: Assessment/Problem Details: Likely from advanced CKD and history of CHF. Patient had recurrent pleural effusion needed thoracocentesis twice. Chest x-ray for this admission showed right side pleural effusion. Patient on Lasix at home. Patient currently on 2 L nasal (4) Primary hypertension: Assessment/Problem Details: Blood pressure seems slightly above the target from likely CKD progression. Currently on carvedilol and hydralazine (5) Anemia: Assessment/Problem Details: Patient had iron deficiency needed IV iron infusion as outpatient. Hemoglobin 9.0 g/dL. Patient not on STEPHIE Plan - I will plan to start hemodialysis tomorrow. We will start with cannulation protocol with a blood flow rate 250, dialysate flow rate 400 ultrafiltration 1 to 2 L with each session. I reviewed the last vascular note from September of thisyear and the access seems ready to be used -I will start the patient Lasix 60 mg twice daily to maintain urine output. -We will continue to monitor blood pressure and adjust blood pressure medications as needed. It is expected for the blood pressure to improve with solute clearance and fluid removal with starting hemodialysis. -Check iron storage study. I will start the patient on STEPHIE if she has enough iron storage -Patient going for right sciatica centesis today. Pulmonary service is following -Check renal function panel tomorrow before dialysis Thank you for the consult. Renal team will continue to follow. Call if any question Documented By: Geronimo Fofana MD 11/16/21 6718 Signed By: <Electronically signed by Geronimo Fofana MD> 11/16/21 3094 [facility] Work Phone: 1(126) 240-870610-07-2022 Consult note Author Danny Pitts [facility] November 16, 2021 3:01pm Note Date/Time November 16, 2021 2: 11pm [facility] [address] [place] [address] Pulmonology Consult Note Signed Patient: Cinthya Wilson MR#: [id number] : 1945 Acct:[id number] Age/Sex: 76 / F Adm Date: 2 Loc: Room: [address] [place] [address] Type: ADM IN Attending Dr: Carlton Mtz DO Copies to: MD Lily Winters II, MD Kristopher L Lindbloom, ~ HPI Date/Time of Consultation: Date of Service: 11/16/2021 Time of Service: 14:07 Consulting Provider: Danny Pitts Requesting Provider: Carlton Mtz Reason for Consult: right pleural effusion History of Present Illness History of present illness: Ms. Wilson is a 76 year old female with history of 3 pneumonia hospitalizationsin the past 3 months and recent pleural effusion status post 2 L pleural drainage about 1 week ago, who presented with worsening shortness of breath. She says she is essentially had worsening progressive shortness of breath since August of this year. She says during each hospitalization she was told she had a abnormal chest x-ray and placed on antibiotics but never is really had much improvement. She has chest tightness associated with some pleuritic pain on theright side which is similar to the last time she had a pleural effusion. She denies any fevers or chills. She says she has a bit of a dry cough but nonproductive. Has not been around anyone sick. Interestingly, she notes that she has never actually had fevers chills or purulent cough during any of her recent hospitalizations. She does have a history of CKD and has had issues withvolume status. Also, she has significant orthopnea. Review of Systems Review of Systems All other systems reviewed & are negative unless noted below or in HPI PMFSH Vaccinated for COVID-19?: Yes Medical History (Updated 11/16/21 @ 14:58 by Danny Pitts MD) Anemia Anxiety Anxiety and depression Arthritis CAD (coronary artery disease) Cataract had bilateral PHACO Cervical spinal stenosis CHF (congestive heart failure) Chronic back pain Chronic kidney disease COPD (chronic obstructive pulmonary disease) Diabetes GERD (gastroesophageal reflux disease) HTN (hypertension) Hyperlipidemia Insomnia Irregular heart rhythm prior to stent placement per pt report Lumbosacral spondylolysis LVH (left ventricular hypertrophy) Neck pain with history of cervical spinal surgery Neuropathy right thigh and feet Pneumonia Polymyalgia Skin cancer mohs procedure for removal Sleep apnea Surgical History H/O heart artery stent History of appendectomy History of back surgery lumbar History of x2 History of carpal tunnel release bilateral History of coronary angioplasty with insertion of stent History of D&C History of shoulder surgery rt shoulder History of tonsillectomy History of total abdominal hysterectomy and bilateral salpingo-oophorectomy Family History Father Heart disease Cancer Mother Cancer Diabetes Social History Smoking Status: Never smoker Substance Use Type: None Social History Comments: adult son Meds Medications and Allergies Allergies lisinopril Allergy (Verified 07/10/21 11:48) Cough Home Medications atorvastatin 40 mg tablet 40 mg PO QPM 11/19/16 [History Confirmed 11/16/21] furosemide 40 mg tablet 60 mg PO QAM 11/19/16 [History Confirmed 06/26/21] hydralazine 50 mg tablet 50 mg PO TID 11/19/16 [History Confirmed 11/16/21] insulin human U-100 NPH-regulr 70-30 mix 100 unit/mL subcutaneous susp 10 unit subcut DAILY 11/19/16 [History Confirmed 11/16/21] isosorbide mononitrate 60 mg tablet,extended release 24 hr 60 mg PO QAM 11/19/16[History Confirmed 11/16/21] multivitamin 1 tab PO DAILY 09/07/19 [History Confirmed 11/16/21] omeprazole 40 mg capsule,delayed release 40 mg PO DAILY 09/07/19 [History Confirmed 11/16/21] aspirin 81 mg tablet,delayed release 81 mg PO DAILY 11/25/19 [History Confirmed 11/16/21] carvedilol 3.125 mg tablet 12.5 mg PO BID 11/25/19 [History Confirmed 11/16/21] cholecalciferol (vitamin D3) 25 mcg (1,000 unit) tablet (Vitamin D3) 25 mcg PO DAILY 11/25/19 [History Confirmed 11/16/21] citalopram 40 mg tablet 40 mg PO DAILY 11/25/19 [History Confirmed 11/16/21] umeclidinium 62.5 mcg-vilanterol 25 mcg/actuation powdr for inhalation (Anoro Ellipta) 1 inh inhalation DAILY 11/25/19 [History Confirmed 11/16/21] exenatide microspheres 2 mg/0.85 mL subcutaneous auto-injector (Byelisabet James) 2 mg subcut QWEEK diabetes 05/16/20 [History Confirmed 06/26/21] albuterol sulfate 0.63 mg/3 mL solution for nebulization 0.63 mg inhalation QID PRN SOB 06/26/21 [History Confirmed 11/16/21] baclofen 10 mg tablet 10 mg PO DAILY PRN muscle spasms 06/26/21 [History Confirmed 11/16/21] docusate sodium 250 mg capsule 250 mg PO DAILY 11/16/21 [History Confirmed 11/16/21] hydrocodone 7.5 mg-acetaminophen 325 mg tablet 1 tab PO Q6H PRN Pain 11/16/21 [History Confirmed 11/16/21] Exam Physical Exam Vital Signs: Temp Pulse Resp BP Pulse Ox O2 Del Method O2 Flow Rate 98.1 F 63 24 156/68 H 98 Nasal Cannula 2 11/16/21 11:50 11/16/21 11:56 11/16/21 11:56 11/16/21 11:50 11/16/21 11:55 11/16/21 11:55 11/16/21 11:55 Narrative: General: AOx3, NAD, resting comfortably on 2L via NC Head: Normocephalic and atraumatic Neck: No obvious elevation of JVP Mouth: Moist mucous membranes Pulmonary: Dullness to percussion three quarters the way up the posterior right lung field with some superimposed crackles, left lung base with mild dullness with superimposed crackles, no wheeze Cardiovascular: There is a regular rate and rhythm, normal S1 and S2, no murmurs, rubs, gallops Abdomen: Soft, nondistended, nontender to palpation Extremities: There is no clubbing of the upper extremities, there was no lower extremity edema Neurological: follows all commands, no gross focal deficits Psych: mood normal, affect normal Results Intake and Output I&O - Last 24 Hours: Intake & Output 11/15/21 11/16/21 11/16/21 23:59 07:59 15:59 Weight 71.2 kg Labs CBC & Chem 7: 11/16/21 11:25 11/16/21 11:25 Additional Results Results Comments: Chest x-ray from 11/16/2021, which I personally reviewed. Large right pleural effusion and small left pleural effusion. Assessment/Plan (1) Acute hypoxemic respiratory failure: (2) Bilateral pleural effusion: (3) Chronic kidney disease, stage 5: (4) Acute heart failure: Plan Assessment: 1. Acute hypoxemic respiratory failure, from #2 2. Bilateral pleural effusion, larger on the right small on the left 3. CKD stage V 4. Heart failure (unspecified systolic or diastolic) Plan: ? In review of her recent history and her records I have available, suspect thatmost of her recurrent pleural effusions (and likely episodes of what she tells me were pneumonia but treated with thoracentesis) may have just been recurrence of pleural effusion in the setting of worsening CKD and possibility of superimposed heart failure ? Discussed with primary this morning and pending thoracentesis with IR for drainage, labs being sent for LDH, protein and cell count to confirm if this is in fact transudate ? Also discussed with nephrology, planning to start hemodialysis tomorrow -I will order a chest x-ray for tomorrow morning and will peripherally follow, anticipate improvement in effusion with hemodialysis Documented By: Danny Pitts MD 11/16/21 1409 Signed By: <Electronically signed by Danny Pitts MD> 11/16/21 6126 [facility] Work Phone: 1(235) 516-277710-07-2022 History and physical note Author Carlton Mtz [facility] November 16, 2021 1:13pm Note Date/Time November 16, 2021 1: 13pm [facility] [address] [place] [address] Hospitalist H&P Signed Patient: Cinthya Wilson MR#: [id number] : 1945 Acct:[id number] Age/Sex: 76 / F Adm Date: 2 Loc: Room: [address] [place] [address] Type: ADM IN Attending Dr: Carlton Mtz DO Copies to: MD Carlton Bourgeois II, DO~ HPI DATE OF EXAMINATION: 11/16/21 CHIEF COMPLAINT: Progressive dyspnea HISTORY OF PRESENT ILLNESS: This is a 76-year-old woman who presented to an outside hospital emergency room with progressive dyspnea. She has been at a [facility] facility after right shoulder injury for physical therapy and strengthening. The outside hospital found large bilateral pleural effusions and transferred her here for more definitive care. She has past medical history of chronic obstructive pulmonary disease and combined systolic and diastolic congestive heart failure. There is a report in the past that she had hypertrophic obstructive cardiomyopathy but I am not entirely certain about that. She does have diabetes mellitus type 2. She does have progressive chronic kidney disease progressing to stage V with plans to initiate hemodialysis when she is ready. Left-sided AV fistula has already beenplaced dating back in June. She has chronic hypertension. The patient is a suboptimal historian. She indicates that about a month ago shewas diagnosed with pneumonia. Then maybe a couple weeks ago at an outside hospital she describes getting 2 different thoracentesis procedures on the rightside, 2 days apart, where she describes them removing 2 L in total between the2 different thoracentesis procedures. On arrival here to the hospital she does complain of shortness of breath. She complains of a pressure-like sensation underneath her breast bilaterally. Foleycatheter has been placed by the outside hospital. This does not seem to be causing any discomfort. She denies any nausea. She does have mild cramping abdominal pain but did have a normal bowel movement today per her report. She reports normally she has a good appetite. She does admit to leg swelling at home which she said was worse at the [facility]pc facility but is better now. She does have some bruising on her right shoulder that does look to be about a week or 2 old. But not a massive amount of edema or deep large bruising that would suggest significant underlying fracture. Case has been discussed with pulmonology and a radiology guided ultrasound assisted right-sided thoracentesis has been requested. I see that she follows with Dr. Leyva from nephrology and I will consult him as well. Review of Systems Review of Systems Review of systems: 10 systems are reviewed and are negative except as mentioned elsewhere in the documentation. PMFSH Vaccinated for COVID-19?: Yes Medical History (Updated 11/16/21 @ 13:12 by Carlton Mtz DO) Anemia Anxiety Anxiety and depression Arthritis CAD (coronary artery disease) Cataract had bilateral PHACO Cervical spinal stenosis CHF (congestive heart failure) Chronic back pain Chronic kidney disease COPD (chronic obstructive pulmonary disease) Diabetes GERD (gastroesophageal reflux disease) HTN (hypertension) Hyperlipidemia Insomnia Irregular heart rhythm prior to stent placement per pt report Lumbosacral spondylolysis LVH (left ventricular hypertrophy) Neck pain with history of cervical spinal surgery Neuropathy right thigh and feet Pneumonia Polymyalgia Skin cancer mohs procedure for removal Sleep apnea Surgical History H/O heart artery stent History of appendectomy History of back surgery lumbar History of x2 History of carpal tunnel release bilateral History of coronary angioplasty with insertion of stent History of D&C History of shoulder surgery rt shoulder History of tonsillectomy History of total abdominal hysterectomy and bilateral salpingo-oophorectomy Family History Father Heart disease Cancer Mother Cancer Diabetes Social History Smoking Status: Never smoker Substance Use Type: None Social History Comments: adult son Meds Medications and Allergies Allergies lisinopril Allergy (Verified 07/10/21 11:48) Cough Home Medications atorvastatin 40 mg tablet 40 mg PO QPM 11/19/16 [History Confirmed 11/16/21] furosemide 40 mg tablet 60 mg PO QAM 11/19/16 [History Confirmed 06/26/21] hydralazine 50 mg tablet 50 mg PO TID 11/19/16 [History Confirmed 11/16/21] insulin human U-100 NPH-regulr 70-30 mix 100 unit/mL subcutaneous susp 10 unit subcut DAILY 11/19/16 [History Confirmed 11/16/21] isosorbide mononitrate 60 mg tablet,extended release 24 hr 60 mg PO QAM 11/19/16[History Confirmed 11/16/21] multivitamin 1 tab PO DAILY 09/07/19 [History Confirmed 11/16/21] omeprazole 40 mg capsule,delayed release 40 mg PO DAILY 09/07/19 [History Confirmed 11/16/21] aspirin 81 mg tablet,delayed release 81 mg PO DAILY 11/25/19 [History Confirmed 11/16/21] carvedilol 3.125 mg tablet 12.5 mg PO BID 11/25/19 [History Confirmed 11/16/21] cholecalciferol (vitamin D3) 25 mcg (1,000 unit) tablet (Vitamin D3) 25 mcg PO DAILY 11/25/19 [History Confirmed 11/16/21] citalopram 40 mg tablet 40 mg PO DAILY 11/25/19 [History Confirmed 11/16/21] umeclidinium 62.5 mcg-vilanterol 25 mcg/actuation powdr for inhalation (Anoro Ellipta) 1 inh inhalation DAILY 11/25/19 [History Confirmed 11/16/21] exenatide microspheres 2 mg/0.85 mL subcutaneous auto-injector (Byduredoris James) 2 mg subcut QWEEK diabetes 05/16/20 [History Confirmed 06/26/21] albuterol sulfate 0.63 mg/3 mL solution for nebulization 0.63 mg inhalation QID PRN SOB 06/26/21 [History Confirmed 11/16/21] baclofen 10 mg tablet 10 mg PO DAILY PRN muscle spasms 06/26/21 [History Confirmed 11/16/21] docusate sodium 250 mg capsule 250 mg PO DAILY 11/16/21 [History Confirmed 11/16/21] hydrocodone 7.5 mg-acetaminophen 325 mg tablet 1 tab PO Q6H PRN Pain 11/16/21 [History Confirmed 11/16/21] Exam Physical Exam Vital Signs: Temp Pulse Resp BP Pulse Ox O2 Del Method O2 Flow Rate 98.1 F 63 24 156/68 H 98 Nasal Cannula 2 11/16/21 11:50 11/16/21 11:56 11/16/21 11:56 11/16/21 11:50 11/16/21 11:55 11/16/21 11:55 11/16/21 11:55 Narrative: GEN: Awake, alert, oriented x 3. Does appear moderately groggy and just tired and fatigued overall Head: Normal Cephalic, Atraumatic. Eyes: Conjunctiva and sclera clear bilaterally. Nose: External nose and nares normal bilaterally. Mouth: Lips and tongue normal. No facial asymmetry Neck: No JVD. No thyromegaly. No lymphadenopathy. Lungs: She is very technically challenging to get lung sounds or lung examination on. She is very diminished lung sounds throughout. But are clearlymuch more diminished in the right base. No wheezing. Mildly increased work of breathing but she is comfortable right now on 1 L of oxygen by nasal cannula. When she first presented she needed 4 L of oxygen by nasal cannula but nursing staff is been able to titrate that down. Heart: Regular rate and rhythm, no murmurs, rubs, or gallops. Heart sounds aresomewhat distant to auscultation. Abdomen: Soft, normal bowel sounds, no rigidity, guarding, or acute peritoneal signs. Extremities: No swelling or cords in the calves bilaterally, does appear to have 2+ pitting edema throughout both legs from the knees down to ankles bilaterally. Skin: No systemic rashes or lesions. Psychiatric: Flattened affect, only provides information when questioned. Does not provide additional symptoms. Neuro: No gross focal or lateralizing deficits. Results Lab Results Labs: Laboratory Last Values Corrected WBC 6.1 X10E3/uL (3.8-11.6) 11/16/21 11:25 Uncorrected WBC Count 6.1 x10E3/uL (4.5-11.0) 11/16/21 11:25 RBC 3.01 x10E6/uL (3.60-5.00) L 11/16/21 11:25 Hgb 9.0 g/dL (11.8-15.4) L 11/16/21 11:25 Hct 27.5 % (34.0-46.4) L 11/16/21 11:25 MCV 91.3 fl (80-100) 11/16/21 11:25 MCH 30.0 pg (24.7-34.3) 11/16/21 11:25 MCHC 32.9 g/dL (32.0-35.0) 11/16/21 11:25 RDW 15.3 % (11.9-15.3) 11/16/21 11:25 Plt Count 302 x10E3/uL (150-450) 11/16/21 11:25 MPV 7.9 fl (6.3-10.7) 11/16/21 11:25 Neut % (Auto) 68.7 % (.) 11/16/21 11:25 Lymph % (Auto) 12.2 % (.) 11/16/21 11:25 Mchenry % (Auto) 14.0 % (.) 11/16/21 11:25 Eos % (Auto) 4.4 % (.) 11/16/21 11:25 Baso % (Auto) 0.7 % (.) 11/16/21 11:25 Neut # (Auto) 4.2 x10E3/uL (1.8-7.7) 11/16/21 11:25 Lymph # (Auto) 0.7 x10E3/uL (1.00-4.8) L 11/16/21 11:25 Mchenry # (Auto) 0.8 x10E3/uL (0.0-0.8) 11/16/21 11:25 Eos # (Auto) 0.3 x10E3/uL (0.0-0.45) 11/16/21 11:25 Baso # (Auto) 0.0 x10E3/uL (0.0-0.2) 11/16/21 11:25 Nucleated RBC % (auto) 0.0 % (0-0.5) 11/16/21 11:25 PT 14.2 Seconds (9.0-12.9) H 11/16/21 11:25 INR 1.3 11/16/21 11:25 APTT 32.8 Seconds (25.1-36.5) 11/16/21 11:25 PHA Creatinine Clear 13.97 11/16/21 11:25 Sodium 132 mmol/L (136-146) L 11/16/21 11:25 Potassium 4.6 mmol/L (3.5-5.1) 11/16/21 11:25 Chloride 95 mmol/L (95-114) 11/16/21 11:25 Carbon Dioxide 24.5 mmol/L (22.0-30.0) 11/16/21 11:25 Anion Gap 17.1 mEq/L (6.0-15.0) H 11/16/21 11:25 BUN 76 mg/dL (9-23) H 11/16/21 11:25 Creatinine 3.42 mg/dL (0.44-1.03) H 11/16/21 11:25 Est GFR ( Amer) 16 mL/Min 11/16/21 11:25 Est GFR (Non-Af Amer) 13 mL/Min 11/16/21 11:25 Glucose 153 mg/dL (70-100) H 11/16/21 11:25 POC Glucose 167 mg/dl 11/16/21 11:48 Estimat Average Glucose 160 mg/dL 11/16/21 11:25 Hemoglobin A1c 7.2 % (4.3-5.6) H 11/16/21 11:25 Calcium 9.3 mg/dL (8.2-10.2) 11/16/21 11:25 Total Bilirubin 0.5 mg/dL (0.3-1.2) 11/16/21 11:25 Direct Bilirubin 0.1 mg/dL (0.0-0.4) 11/16/21 11:25 Indirect Bilirubin 0.4 mg/dL 11/16/21 11:25 AST 34 U/L (10-42) 11/16/21 11:25 ALT 37 U/L (10-60) 11/16/21 11:25 Alkaline Phosphatase 85 U/L (32-92) 11/16/21 11:25 Total Creatine Kinase 286 U/L (22-269) H 11/16/21 11:25 CK-MB (CK-2) 13.0 ng/mL (0.6-6.3) H 11/16/21 11:25 CK-MB (CK-2) Rel Index 4.5 % (0.00-2.50) H 11/16/21 11:25 B-Natriuretic Peptide 1064.0 pg/mL (5-100) H 11/16/21 11:25 Total Protein 5.7 gm/dL (6.1-7.9) L 11/16/21 11:25 Albumin 2.6 gm/dL (3.2-5.5) L 11/16/21 11:25 Globulin 3.1 gm/dL 11/16/21 11:25 Albumin/Globulin Ratio 0.8 11/16/21 11:25 A&P - Hospitalist Assessment/Plan (1) Recurrent right pleural effusion: (2) Chronic kidney disease, stage 5: (3) Sleep apnea: (4) HTN (hypertension): (5) COPD (chronic obstructive pulmonary disease): (6) Diabetes: (7) CAD (coronary artery disease): (8) Anemia: (9) Right shoulder pain: Plan Assessment: Presentation recurrent large right-sided pleural effusion. Complicating mattersis chronic kidney disease stage V which is progressing and end-stage renal disease. She does have a history of chronic obstructive pulmonary disease which seems to be stable at this time. Uncertain exactly what her cardiac function is. We do not have any echocardiograms in our computer system. Plan: Consult to pulmonology. Right-sided thoracentesis has been ordered. Consult to nephrology. I will get x-rays of her right shoulder for completeness. Lidoderm patches to right shoulder may help reduce some of her pain. Diabetes management with Accu-Cheks before meals and at bedtime and in the middle of the night at 300 and sliding scale insulin level 1. Hemoglobin A1c is acceptable at 7.2. Hold aspirin until we are certain she will not need additional thoracentesis or other procedures. DVT prophylaxis with sleep compression devices. Check labs daily. Documented By: Carlton Mtz DO [id number] Signed By: <Electronically signed by Carlton Mtz DO> 11/16/21 1313 [facility] Work Phone: 1(480) 958-784508-11-2022 Evaluation note* Encounter Date Diagnosis Assessment Notes Treatment Notes Treatment Clinical Notes Sep, CKD (chronic kidney disease), stage IV (ICD-10 - N18.4) We reviewed today's graft flow scan of the left arm AV fistula which shows adequate size ranging from 0.74cm to 1.13 cm in diameter. The fistula is less than 6 mm from the skin plane and flow velocities range from 706 03/25/1957 throughout. I believe if she were to need hemodialysis her fistula should be ready to access and begin cannulation protocol. She has upcoming appointment with her ethanol quality leader in November and will continue to follow closely with him. We will continue to follow her along closely and see her on a routine basis for monitoring of her fistula. She will let us know in the meantime if she were to find herself in need of beginning hemodialysis prior to her next scheduled appointment. She verbalizes understanding of all discussion, agrees with this plan, and denies any questions. 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 Patient has history of cardiac disease Kidney function is better this visit. I believe the patient was dehydrated from poor oral intake last visit and kidney function improved with better oral intake Volume is well controlled. Continue Lasix 6 mg p.o. daily Left upper extremity fistula was created in June 2021 Blood pressures well controlled There is no urgent need of hemodialysis I will follow up with the patient in 4 months Jul, Anemia associated wi th chronic renal failure (ICD-10 - D63.1) Hemoglobin improved to 10.3 mg/dL with 2 doses of Injectafer No need for STEPHIE. I will check iron storage study along with folate level next visit Jul, Hematuria (ICD-10 - R31.9) There is no recurrence of hematuria. This was likely related to UTI. Now resolved Jul, CHF (congestive hear t failure) (ICD-10 - I50.9) CHF is compensated. She has history of coronary artery disease. Follows with cardiology clinic in [facility] continue same dose of Lasix Jul, Hypertensive chronic kidney disease with stage 1 through stage 4 chronic kidney disease, or unspecified chronic kidney disease (ICD-10 - I12.9) Blood pressures well controlled. I will continue same blood pressure medications Jul, Edema (ICD-10 - R60.9) No ed denice. 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 Calcium and phosphorus are within normal limits Jul, Diabetic nephropathy (ICD-10 - E11.21) Insulin is being adjusted again by Dr. Aldrich. She said that hemoglobin A1c remains below 7% Jul, Mixed hyperlipidemia (ICD-10 - E78.2) Follow-up with Dr. Edwards. [facility] Other 05-16-2022 Evaluation note* Encounter Date Diagnosis Assessment Notes Treatment Notes Treatment Clinical Notes June, Pre-op testing (ICD-10 - Z01.818) [facility] Other 05-12-2022 Evaluation note* Encounter Date Diagnosis Assessment Notes Treatment Notes Treatment Clinical Notes June, CKD (chronic kidney disease), stage IV (ICD-10 - N18.4) We reviewed today's bilateral upper extremity vein mapping. I did review the fistula creation handout with her and all of her questions were addressed. This patient is not currently in need of hemodialysis. Time is on her side. This patient is right-hand dominant. Based on today's vein mapping, we will plan for left upper extremity brachiocephalic AV fistula creation. Procedure, risk, benefits were discussed at length and all of her questions were addressed. Dr. Bhatti in room to discuss with her further. She understands this may be 1 of multiple procedures that could be needed for fistula creation. She verbalizes understanding of all discussion, agrees with plan, and denies any questions. We will get this scheduled for her in the near future. [facility] Other 04-06-2022 Evaluation note* Encounter Date Diagnosis Assessment Notes Treatment Notes Treatment Clinical Notes May, CKD (chronic kidney disease) stage 4, GFR 15-29 ml/min (ICD-10 - N18.4) due to diabetes milieus type 2, GFR 20 ml/min/1.73 m2 surface area Patient is having CKD progression .serum creatinine is up to 3.2 mg deciliter and GFR down to 14 L/min. Volume is well controlled. Continue Lasix 6 mg p.o. 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 Hemoglobin 8.8 g/dL. I will schedule 2 Injectafer doses May, Hematuria (ICD-10 - R31.9) There is no recurrence of hematuria. Patient was treated with UTI for this May, CHF (congestive hear t failure) (ICD-10 - I50.9) CHF is compensated. Continue same dose of Lasix May, Hypertensive chronic kidney disease with stage 1 through stage 4 chronic kidney disease, or unspecified chronic kidney disease (ICD-10 - I12.9) Elevated. I will increase hydralazine to 50 mg 3 times daily. Continue same other blood pressure medication May, Edema (ICD-10 - R60.9) No ed denice. Continue Lasix May, Secondary renal hyperparathyroidism (ICD-10 - N25.81) Intact PTH remains abnormality. Calcium and phosphorus are within normal limits May, Diabetic nephropathy (ICD-10 - E11.21) Insulin is being adjusted again by Dr. Aldrich. She said that hemoglobin A1c 6.8%. May, Mixed hyperlipidemia (ICD-10 - E78.2) Follow-up with Dr. Edwards. [facility] Other [id number] Note [id number]#1.00[facility]01-12-2022 [id number] 02-20-[address] [facility] [employer]PERATIVE SHOULDER INSTRUCTIONS SURGEONS WRITTEN INSTRUTCTIONS: -If you have been given a cryo cuff after surgery you should use it as much as possible for the first 24-48 hours. After that it is optional. TIP: Many patients prefer to use it a little longer because it helps reduce pain -You should wiggle your fingers frequently -Change your dressings in 1 day. If steri-strips have been applied DO NOT remove them. When the wound is clean and dry you may leave it open to air but again DO NOT remove any steri-strips that have been applied -You may shower in 1 day but do not let the water stream directly strike the wound -Do pendulum exercises for at least 10 minutes twice a day -If you have any problems or concerns, please call the office at [phone] -Follow up as scheduledThe [facility] [id number] [facility] 2SOUT Clinical Discharge Summary PERSON INFORMATION Name CINTHYA WILSON Age 75 Years 1945 Sex FEMALE Language Bahraini PCP LILY ALDRICH Marital Status Med Service Med/Surg Acct# Arrival 02/19/2021 06:01:00 Visit Reason SURGERY - RIGHT REVERSE TOTAL SHOULDER - ARTHREX Acuity LOS 000 28:08 Address: [address] [place] [id number] Comment: PROVIDER INFORMATION VITALS INFORMATION Vital Sign Triage Latest Temp Oral 36.2 DegC 36.9 DegC Temp Temporal Temp Intravascular Temp Axillary Temp Rectal 02 Sat 99 % 96 % Respiratory Rate 16 br/min 20 br/min Peripheral Pulse Rate 69 bpm 88 bpm Apical Heart Rate Blood Pressure 146 mmHg / 65 mmHg 152 mmHg / 64 mmHg Comment: MEDICAL INFORMATION Allergy Info: lisinopril Medication List: Medications to Continue That Have Not Changed Other Medications acetaminophen (Tylenol 8 HR Arthritis Pain 650 mg oral tablet, extended release) 2 tab(s) Oral Every 8 hours as needed pain. acetaminophen-hydrocodone (acetaminophen-hydrocodone 325 mg-7.5 mg oral tablet) 1 tab(s) Oral Every4 hours as needed for pain. aspirin (aspirin 81 mg oral capsule) 1 cap(s) Oral every day. do not exceed 48 capsules in 24 hours. atorvastatin (atorvastatin 40 mg oral tablet) 1 tab(s) Oral every day. brexpiprazole (Rexulti 1 mg oral tablet) 1 tab(s) Oral every day. calcium citrate (calcium citrate 950 mg (200 mg elemental calcium) oral tablet) 1 tab(s) Oral everyday. carvedilol (carvedilol 12.5 mg oral tablet) 1 tab(s) Oral 2 times a day. cholecalciferol (Vitamin D3 1000 intl units oral capsule) 1 cap(s) Oral every day. citalopram (citalopram 40 mg oral tablet) 1 tab(s) Oral every day. docusate-senna (Stool Softener with Laxative) 1 tab(s) Oral every day. exenatide (Bydureon BCise 2 mg/0.85 mL subcutaneous suspension, extended release) 2 Milligram Subcutaneous every week. furosemide (furosemide 40 mg oral tablet) 1 tab(s) Oral every day. hydrALAZINE (hydrALAZINE 50 mg oral tablet) 1 tab(s) Oral 2 times a day. insulin isophane-insulin regular (NovoLIN 70/30 subcutaneous suspension) 60 unit(s) Subcutaneous 2 times a day. isosorbide mononitrate (isosorbide mononitrate 60 mg oral tablet, extended release) 1 tab(s) Oral once a day (in the morning). multivitamin (Multivitamin, generic) 1 tab(s) Oral every day. omeprazole (omeprazole 40 mg oral delayed release capsule) 1 cap(s) Oral every day. oxyCODONE (oxyCODONE 5 mg oral tablet) 1 tab(s) Oral Every 6 hours as needed for pain. umeclidinium-vilanterol (Anoro Ellipta 62.5 mcg-25 mcg/inh inhalation powder) 1 puff Inhalation every day. Comment: Lab and Radiology Results Laboratory or Other Results This Visit (last charted value for your 02/19/2021 visit) Chemistry 02/20/2021 8:32 AM Creatinine Level: 2.61 mg/dL -- Normal range between ( 0.60 and 1.30 ) BUN: 50 mg/dL -- Normal range between ( 8 and 26 ) Chloride Level: 100 mmol/L -- Normal range between ( 101 and 111 ) CO2: 19 mmol/L -- Normal range between ( 21 and 32 ) Glucose Level: 215.0 mg/dL -- Normal range between ( 74.0 and 118.0 ) Osmolality: 282 mOsm/L Potassium Level: 5.0 mmol/L -- Normal range between ( 3.6 and 5.1 ) Sodium Level: 131.0 mmol/L -- Normal range between ( 136.0 and 144.0 ) Anion Gap: 17.0 mmol/L -- Normal range between ( 5.0 and 19.0 ) Calcium Level: 9.0 mg/dL -- Normal range between ( 8.9 and 10.3 ) BUN/Creat Ratio: 19.0 -- Normal range between ( 4.6 and 16.2 ) eGFR AA: 22 mL/min/1.73m2 eGFR Non AA: 18 mL/min/1.73m2 02/19/2021 8:55 PM Glucose, POC: 154 mg/dL -- Normal range between ( 74 and 118 ) [facility] [place] 02/20/2021 8:32 AM Tube Collected: Yes Diagnostic Radiology 02/19/2021 10:02 AM XR Shoulder 1 View Right: XR Shoulder 1 View Right Radiology Report 02/19/2021 12:41 PM Radiology Report: Radiology Report DIET & ACTIVITY Patient Activity Level: As Tolerated Patient Diet: Regular Patient Activity Restrictions: DISCHARGE INFORMATION Discharge Disposition: Discharge Location: DEPART REASON INCOMPLETE INFORMATION PATIENT EDUCATION INFORMATION Instructions: [facility] Follow up: With: Address: When: Carlo Wyman [address] [place] [address], [address] [place] [address] Business (1) 02/27/2021 1:15 PM With: Address: When: LILY ALDRICH [facility], [address] [place], [place] [id number] [place], [place] [id number] Business (1) DIAGNOSIS 1:Status post reverse total arthroplasty of right shoulder; 2:Osteoarthritis of right shoulder; 3:Stage 4 chronic kidney disease; 4:CHF (congestive heart failure); 5:COPD (chronic obstructive pulmonary disease); 6:GERD (gastroesophageal reflux disease); 7:Hypertension; 8:Diabetes Comment: PHYS DOC [facility]01-10-2022 Note [id number]* Encounter Date Diagnosis Assessment Notes Treatment Notes Treatment Clinical Notes Dec, CKD (chronic kidney disease) stage 4, GFR 15-29 ml/min (ICD-10 - N18.4) due to diabetes milieus type 2, GFR 20 ml/min/1.73 m2 surface area She had a progressive chronic kidney disease most likely related to diabetic nephropathy and cardiorenal syndrome. Patient had short period of potential dialysis because of recurrent CHF and BUN more than 100 however renal function stabilized with creatinine variable between 2.5 to 3 mg/dL according to the volume status and blood pressure. She has more edema with recurrent CHF. She was advised to increase furosemide to 40 mg twice a day. Monitor renal function every 3 to 4 months or as needed. Dec, Anemia associated wi th chronic renal failure (ICD-10 - D63.1) Patient had a booster dose of Venofer 750 mg IV with improvement of hemoglobin up to 9.9 g/dL. Will monitor CBC and iron stores in 4 months and reload with IV iron if needed. She is not on erythropoietin. Dec, Hematuria (ICD-10 - R31.9) Patient presented to [facility] with hematuria. Cystoscopy and ureteroscopy showed possible mass that need to be followed up characterized. She was also having UTI that was treated with ceftriaxone. Currently she has no more hematuria. She will follow up with Dr. Mckinley as needed. Dec, CHF (congestive hear t failure) (ICD-10 - I50.9) CHF is compensated. Will increase furosemide to 40 mg twice a day at the blood pressure is elevated with mild edema. She was advised to decrease the furosemide back to 40 mg daily if systolic blood pressure drops or she has dizziness. Dec, Hypertensive chronic kidney disease with stage 1 through stage 4 chronic kidney disease, or unspecified chronic kidney disease (ICD-10 - I12.9) Blood pressure is well controlled on medications directed to underlying CHF. Dec, Edema (ICD-10 - R60.9) She has minimal edema. Continue low-salt diet. Dec, Secondary renal hyperparathyroidism (ICD-10 - N25.81) Intact PTH is normal 56 and phosphorus is reasonable 5.1 mEq/L. Continue low phosphorus diet. Dec, Diabetic nephropathy (ICD-10 - E11.21) Insulin is being adjusted again by Dr. Aldrich. She said that hemoglobin A1c 6.8%. Dec, Mixed hyperlipidemia (ICD-10 - E78.2) Follow-up with Dr. Edwards. [facility] Other 08-13-2021 NoteHNO ID: [id number] Author: Yamileth Martin MD Service: ? Author Type: Physician Type: Progress Notes Filed: 10/01/2020 12:14 AM Note Text: VIRTUAL VISIT PROGRESS NOTE This is a virtual visit using [employer] video visit. It required patient-provider interaction for the medical decision making as documented below. Persons Present: patient and patient's spouse/significant other Chief Complaint/Reason: Hematuria HPI: Cinthya Wilson is a 75 year old female who presents for post-op evaluation. She was evaluated at [facility] in the past, which prompted ureteroscopy. Ureteroscopy was unsuccessful due to intrarenal bleeding. Postoperatively she had hematuria that required cbi, she was transferred to [facility]. She is s/p cysto, left ureteral stent removal, left retrograde pyelogram, left diagnostic ureteroscopy with renal pelvis washing, cup biopsy, and brush biopsy on 09/18/20. Path showed benign urothelial tissue with underlying vascular congestion, hemorrhage, and reactive changes. Cytology was negative for high grade urothelial carcinoma Interval Hx: She reports no new issues. She is just a bit tired, otherwise doing well. Data Reviewed: Most recent pathology and pelvis wash Labs Surgical Pathology 09/19/20 FINAL DIAGNOSIS Left renal pelvis, biopsy - Benign urothelial tissue with underlying vascular congestion, hemorrhage, and reactive changes. -Negative for malignancy. Renal Pelvis wash 09/18/20 FINAL DIAGNOSIS A. RENAL PELVIS LEFT, WASHING Negative for high-grade urothelial carcinoma. B. RENAL PELVIS LEFT, BRUSHING Atypical urothelial cells. Creatinine Date Value Ref Range Status 09/18/2020 2.13 (H) 0.58 - 0.96 mg/dL Final 09/03/2020 2.02 (H) 0.58 - 0.96 mg/dL Final 09/02/2020 2.38 (H) 0.58 - 0.96 mg/dL Final 09/01/2020 3.07 (H) 0.58 - 0.96 mg/dL Final Imaging n/a HISTORY REVIEWED (electronic chart updated): PAST MEDICAL HISTORY Diagnosis Date - Sleep apnea No past surgical history on file. No family history on file. Social History Tobacco Use - Smoking status: Never Smoker Substance Use Topics - Alcohol use: Not on file - Drug use: Not on file Current Outpatient Medications Medication Sig - insulin 70-30 aspart protamine-aspart (NOVOLOG MIX 70/30) 100 units/mL injection Inject subcutaneously twice daily with meals. - omeprazole (PRILOSEC) 20 mg capsule Take 20 mg by mouth once daily. - sulfamethoxazole-trimethoprim (BACTRIM DS) 800-160 mg per tablet Take 1 tablet by mouth once daily. - furosemide (LASIX) 20 mg tablet Take 1 tablet by mouth once daily. Talk to your primary care doctor about your kidney function before you restart this medication - losartan (COZAAR) 100 mg tablet Take 1 tablet by mouth once daily. Please talk to your primary care doctor about your kidney function before restarting this medication - diclofenac sodium (VOLTAREN) 1 % topical gel apply 2gms to areas of joint pain up to four times a day. Avoid contact with eyes. Do not exceed 32gm/day - ergocalciferol, vitamin D2, (DRISDOL) 50,000 unit capsule (take by mouth with food twice a week, ONE CAPSULE ON FRIDAY AND ONE ON FRIDAY) FOR A TOTAL OF 10 WEEKS. - hydroxychloroquine (PLAQUENIL) 200 mg tablet Take one tab by mouth daily with food x 3, then twice a day thereafter. Sunscreen when outdoors. See ophthalmology every 6-12months on med. - cholecalciferol, vitamin D3, 4,000 unit cap Take by mouth once daily. - cyanocobalamin (VITAMIN B-12) 1,000 mcg/mL soln Inject 1 mL intramuscularly once every month. - insulin glargine (LANTUS) 100 unit/mL injection Inject 70 Units subcutaneously once daily. - metFORMIN (GLUCOPHAGE) 1,000 mg tablet Take 1,000 mg by mouth twice daily with meals. - amLODIPine (NORVASC) 5 mg tablet Take 5 mg by mouth once daily. - carvedilol (COREG) 25 mg tablet Take 25 mg by mouth twice daily with meals. - citalopram (CELEXA) 40 mg tablet Take 40 mg by mouth once daily. - simvastatin (ZOCOR) 20 mg tablet Take 20 mg by mouth daily at bedtime. - aspirin, enteric coated (ASPIRIN, ENTERIC COATED) 81 mg EC tablet Take 81 mg by mouth once daily. - acetaminophen (TYLENOL) 325 mg tablet Take 650 mg by mouth as needed. states three two times a day as needed No current facility-administered medications for this visit. ALLERGIES Allergen Reactions - Lisinopril Cough - Meloxicam Intolerance due to kidney issues in past with medication REVIEW OF SYSTEMS: GENERAL: feeling well without fatigue, no recent change in weight PHYSICAL EXAMINATION: VIDEO EXAM: (if completed, performed via video enabled technology) No exam performed ASSESSMENT: (R31.0) Gross hematuria (primary encounter diagnosis) 75 year old female who presents for post-op evaluation. She is s/p cysto, left ureteral stent removal, left retrograde pyelogram, left diagnostic ureteroscopy with renal pelvis washing, cup biopsy, and brush biopsy on 09/18/20. Path (more content not included)...[facility]07-30-2021 NoteHNO ID: [id number] Author: Yamileth Martin MD Service: ? Author Type: Physician Type: Progress Notes Filed: 09/18/2020 1:15 AM Note Text: VIRTUAL VISIT PROGRESS NOTE This is a virtual visit using [employer] video visit. It required patient-provider interaction for the medical decision making as documented below. 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 Patient had history of hematuria which was evaluated in [facility] before. She needsd blood transfusion. She has elevated creatinine. Scr 2.02 ng/mL Her non contrast CT is suboptimal but she underwent cystoscopy, left retrograde pyelogram, left ureteroscopy. Due to bleeding his doctor wasn't able to take biopsies. Postprocedure she was transferred to [facility] for observation. Data Reviewed: Most recent labs and imaging results. Labs Creatinine Date Value Ref Range Status 09/03/2020 2.02 (H) 0.58 - 0.96 mg/dL Final 09/02/2020 2.38 (H) 0.58 - 0.96 mg/dL Final 09/01/2020 3.07 (H) 0.58 - 0.96 mg/dL Final 03/22/2015 1.57 (H) 0.70 - 1.40 mg/dL Final Imaging Uploaded in [facility] HISTORY REVIEWED (electronic chart updated): PMH: diabetes, htn, hl, anemia No past surgical history on file. No family history on file. Social History Tobacco Use - Smoking status: Never Smoker Substance Use Topics - Alcohol use: Not on file - Drug use: Not on file Current Outpatient Medications Medication Sig - cephALEXin (KEFLEX) 500 mg capsule Take 1 capsule by mouth four times daily for 10 days. - [START ON 09/13/2020] sulfamethoxazole-trimethoprim (BACTRIM DS) 800-160 mg per tablet Take 1 tablet by mouth once daily. - furosemide (LASIX) 20 mg tablet Take 1 tablet by mouth once daily. Talk to your primary care doctor about your kidney function before you restart this medication - losartan (COZAAR) 100 mg tablet Take 1 tablet by mouth once daily. Please talk to your primary care doctor about your kidney function before restarting this medication - diclofenac sodium (VOLTAREN) 1 % topical gel apply 2gms to areas of joint pain up to four times a day. Avoid contact with eyes. Do not exceed 32gm/day - ergocalciferol, vitamin D2, (DRISDOL) 50,000 unit capsule (take by mouth with food twice a week, ONE CAPSULE ON FRIDAY AND ONE ON FRIDAY) FOR A TOTAL OF 10 WEEKS. - hydroxychloroquine (PLAQUENIL) 200 mg tablet Take one tab by mouth daily with food x 3, then twice a day thereafter. Sunscreen when outdoors. See ophthalmology every 6-12months on med. - cholecalciferol, vitamin D3, 4,000 unit cap Take by mouth once daily. - cyanocobalamin (VITAMIN B-12) 1,000 mcg/mL soln Inject 1 mL intramuscularly once every month. - insulin glargine (LANTUS) 100 unit/mL injection Inject 70 Units subcutaneously once daily. - metFORMIN (GLUCOPHAGE) 1,000 mg tablet Take 1,000 mg by mouth twice daily with meals. - amLODIPine (NORVASC) 5 mg tablet Take 5 mg by mouth once daily. - carvedilol (COREG) 25 mg tablet Take 25 mg by mouth twice daily with meals. - citalopram (CELEXA) 40 mg tablet Take 40 mg by mouth once daily. - simvastatin (ZOCOR) 20 mg tablet Take 20 mg by mouth daily at bedtime. - aspirin, enteric coated (ASPIRIN, ENTERIC COATED) 81 mg EC tablet Take 81 mg by mouth once daily. - acetaminophen (TYLENOL) 325 mg tablet Take 650 mg by mouth as needed. states three two times a day as needed No current facility-administered medications for this visit. 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 We discussed left ureteroscopy, stent exchange, cystoscopy and possible TURBT with the patient PLAN: -Schedule cysto left ureteroscopy, possible biopsy, possible laser ablation of tumor, possible stent change, TURBT on 09/18/20 There are no Patient Instructions on file for this visit. I spent a total of 32 minutes on the date of the service which included [id number] patient care and completing clinical documentation Scribe Attestation: By signing my name below, [place], attest that this documentation has been prepared under the direction and in the presence of Dr. Yamileth Martin MD. Electronically signed: Andrei Thompson, September 08, 2020 2:06 PM Yamileth Fox MD, personally performed the services described in this documentation. All medical record entries made by the scribe were at my (more content not included)...[facility]07-25-2021 NoteHNO ID: [id number] Author: Teofilo Hess MD Service: Urology Author Type: Physician Type: Progress Notes Filed: 09/03/2020 10:29 AM Note Text: [facility] UROLOGY PROGRESS NOTE Name: Cinthya Wilson After Hours Main [place] [facility] Service Pager: [phone] ASSESSMENT AND PLAN Cinthya Wilson is a 75 year old female with history of HTN, DM2, stage III CKD, CAD s/p 1 stent in 2010, and polyarticular joint pain who presented to [facility] for evaluation of hematuria, she underwent a cysto and retrograde pyelogram with evidence of filling defects in the upper ureter and renal pelvis, therefore ureteroscopy was attempted and visualized possible tumor in the upper tract. This was not biopsied and a stent was placed 6 Fr multi-length JJ stent on 08/30/20. Her course was complicated by persistent hematuria requiring CBI therefore she was transferred here. Interval/daily plan: #Neuro - Pain control with PO/IV analgesia #CV/Resp -HDS -Encourage IS -HTN - continue coreg and hydralazine -HLD - on atorvastatin #GI -Diet: Reg, IVF continued -Colace, Zofran, miralax - DM2 - SSI # -SCr: stable -UOP: Continue to monitor, -Hobson: removed passed TOV - DAVID - will avoid nephrotoxins suspect from bacteremia present on admission, will continue to hydrate #Activity - OOB to chair and Ambulate with assistance. Stressed importance of getting out of bed #DVT prophylaxis - SCDs #ID/Antibiotics - E. Coli BCx and UCx from outside hospital - Started on ceftriaxone - Sensitive to unasyn, cefazolin, ceftriaxone, levofloxacin, bactrim, zosyn, and cipro. - Will send home with keflex given drug interactions for 10 days and then ppx bactrim through follow up appointment #Secondary Dx/Complications- As listed above, bacteremia present on admission presumed urinary source #Discharge teaching - routine #Disposition - today, will coordinate with case management for possible transportation issue to and from outpatient visits Discussed with Dr. Hess . Fredo De Jesus MD Urology Resident [facility] [place] Pager [phone], After Hours and Weekends Urology Service Pager [phone] SUBJECTIVE -Doing well, has ride for today, voiding without issue, would like to go home, ambulating and tolerating a diet OBJECTIVE: Vital Signs 09/03/20 0240 09/03/20 0245 09/03/20 0616 09/03/20 0623 BP: 175/65 176/70 189/72 188/78 Pulse: 76 79 Resp: 18 18 Temp: 36.8 ?C (98.2 ?F) TempSrc: Oral SpO2: 95% 98% Date 09/02/20 07 - 09/03/20 0659 09/03/20 07 - 09/04/20 0659 Shift [id number] 4452-3073 3324-1004 24 Hour Total 8849-1283 [id number] 7173-9275 24 Hour Total INTAKE PO 370 370 PO 370 370 IV 150 350 500 Volume (mL) (NaCl 0.9% iv infusion) 150 350 500 Irrigants 300 300 Irrigant/Flush Amount In ([REMOVED] Indwelling Urinary Catheter 08/31/20 Assessment Hobson 09/02/20 1043) 300 300 Shift Total 670 651 786 3035 OUTPUT Urine 3438 953 2960 3375 Void (ml) 714 329 6609 2375 Urine Not Saved. 2 x 3 x 5 x Output ([REMOVED] Indwelling Urinary Catheter 08/31/20 Assessment Hobson 09/02/20 1043) 1000 1000 # of BMs Number of BMs 1 x 1 x 2 x Shift Total 0684 894 1696 3375 Weight (kg) Physical Exam General: Well-appearing, no acute distress CV: Warm and well perfused Lungs: Unlabored breathing on RA Abdomen: soft, non-tender, non-distended Extremities: no peripheral edema bilaterally, no palpable cords Recent Labs 09/02/20 0552 09/01/20 0648 WBC 11.29* 13.25* HB 8.5* 8.1* HCT 27.8* 26.3* PLT 252 205 NA 139 136 K 4.1 4.5 CHLOR 108* 104 CO2 18* 18* BUN 54* 64* CREAT 2.38* 3.07* GLUC 127* 192* Imaging Reviewed KUB with stents in good location Urology Staff Note: I saw and evaluated the patient on rounds today and confirmed the above. Discussed with resident/fellow and agree with findings, with my additions and alterations noted below. Patient sitting in chair and looks well this morning. Will treat with appropriate antibiotics for 2 weeks, and arrange follow-up with Dr. Martin for further diagnostic procedures and subsequent surgical treatment. Questions were answered and patient agrees with plan. Teofilo Hess, [facility]07-24-2021 NoteHNO ID: [id number] Author: Chetan Rogers MD Service: Urology Author Type: Fellow Type: Progress Notes Filed: 09/02/2020 10:01 AM Note Text: [facility] UROLOGY PROGRESS NOTE Name: Cinthya Wilson After Hours [facility] Urology Service Pager: [phone] ASSESSMENT AND PLAN Cinthya Wilson is a 75 year old female with history of HTN, DM2, stage III CKD, CAD s/p 1 stent in 2010, and polyarticular joint pain who presented to [facility] for evaluation of hematuria, she underwent a cysto and retrograde pyelogram with evidence of filling defects in the upper ureter and renal pelvis, therefore ureteroscopy was attempted and visualized possible tumor in the upper tract. This was not biopsied and a stent was placed 6 Fr multi-length JJ stent on 08/30/20. Her course was complicated by persistent hematuria requiring CBI therefore she was transferred here. Interval/daily plan: #Neuro - Pain control with PO/IV analgesia #CV/Resp -HDS -Encourage IS -HTN - continue coreg and hydralazine -HLD - on atorvastatin #GI -Diet: Reg, IVF continued -Colace, Zofran, miralax - DM2 - SSI # -SCr: stable -UOP: Continue to monitor, -Hobson: 3-way hobson in place, can remove today and do trial of void - DAVID - will avoid nephrotoxins suspect from bacteremia present on admission, will continue to hydrate #Activity - OOB to chair and Ambulate with assistance. Stressed importance of getting out of bed #DVT prophylaxis - SCDs #ID/Antibiotics - E. Coli BCx and UCx from outside hospital - Started on ceftriaxone - Sensitive to unasyn, cefazolin, ceftriaxone, levofloxacin, bactrim, zosyn, and cipro. - Will send home with cipro for 10 days and then ppx bactrim through follow up appointment #Secondary Dx/Complications- As listed above, bacteremia present on admission presumed urinary source #Discharge teaching - routine #Disposition - pending course, likely tomorrow Discussed with Dr. Hess . Fredo De Jesus MD Urology Resident [facility] [place] Pager [phone], After Hours and Weekends Urology Service Pager [phone] SUBJECTIVE -CBI was off, no fevers/chills overnight, no n/v, has not ambulated yet, had a transient episode of dyspnea but was saturating well on RA and will walk today OBJECTIVE: Vital Signs 09/02/20 0626 09/02/20 0629 09/02/20 0821 09/02/20 0921 BP: 191/75 195/80 174/65 172/68 Pulse: 85 81 Resp: 17 Temp: 36.9 ?C (98.4 ?F) TempSrc: Oral SpO2: 95% 95% Date 09/01/20 07 - 09/02/20 0659 09/02/20 07 - 09/03/20 0659 Shift 2692-1573 6020-6932 2091-5510 24 Hour Total 4404-7971 2676-5719 6936-7392 24 Hour Total INTAKE PO 90 90 120 120 PO 90 90 120 120 IV 600 100 700 Volume (mL) (NaCl 0.9% iv infusion) 600 100 700 Irrigants 6500 3000 6000 22497 Irrigant/Flush Amount In ( Indwelling Urinary Catheter 08/31/20 Assessment Hobson) 6500 3000 6000 15749 Shift Total 7190 3100 6000 70515 120 120 OUTPUT Urine 8700 3750 8000 68288 Urine Not Saved. 1 x 1 x Output ( Indwelling Urinary Catheter 08/31/20 Assessment Hobson) 8700 3750 8000 11508 Shift Total 8700 3750 8000 17502 Weight (kg) Physical Exam General: Well-appearing, no acute distress CV: Warm and well perfused Lungs: Unlabored breathing on RA Abdomen: soft, non-tender, non-distended : CBI off and urine is yellow Extremities: no peripheral edema bilaterally, no palpable cords Recent Labs 09/02/20 0552 09/01/20 0648 WBC 11.29* 13.25* HB 8.5* 8.1* HCT 27.8* 26.3* PLT 252 205 NA -- 136 K -- 4.5 CHLOR -- 104 CO2 -- 18* BUN -- 64* CREAT -- 3.07* GLUC -- 192* Imaging Reviewed KUB with stents in good location Fellow Addendum Patient personally seen and examined. Reviewed and agree with the chow findings and plan in resident note. I personally participated in chow components of the patient's evaluation with the following additions, modifications, and/or confirmations: Urine clear off cbi, feeling well overall osh cultures with currie sensitive e coli F/u biopsy from OSH Will dc with cipro and ppx bactrim Needs f/u to discuss further surgical plans Chetan Rogers MD Clinical Fellow Male Genitourinary Reconstruction AND Prosthetic Surgery For daytime patient-related issues, please contact the resident associated with the original progress note. For weekend or after hours issues [place] [phone].[facility]07-24-2021 NoteHNO ID: [id number] Author: Interface Note Service: ? Author Type: ? Type: Progress Notes Filed: 09/02/2020 2:45 AM Note Text: Epic Scheduled Downtime: 09/02/2020 1:01:00 AM to 09/02/2020 2:33:00 [facility]07-23-2021 NoteHNO ID: [id number] Author: Jessica Escudero RN Service: Care Management Author Type: Registered Nurse Type: Care Mgt Initial Assessment Filed: 09/01/2020 3:05 PM Note Text: CARE MANAGEMENT PROGRESS NOTE SERVICE DATE: 09/01/2020 SERVICE TIME: 3:01 PM LOS: 0 days [place] of Choice Given: No Reason Not Given: No placements necessary Caregiver is ready, willing and able to meet the patient's needs as recommended by the inter-professional team:: No Caregiver needed Does the patient have an acute stroke diagnosis, or has the patient had a stroke during this admission?: No Needs Prior to Discharge: To Be Determined Current Advance Directive: Health Care Power of General Production Laborer In Chart: No Dentist Attendant Attempted to Assist with AD Completion: Yes Action: Education Provided D/C TBD. POC: Continuous Bladder Irrigation. Will follow for d/c planning needs. SIGNATURE: Jessica Escudero RN PATIENT NAME: Cinthya Wilson DATE: September 01, 2020 TIME: 3:00 PM PAGER/CONTACT #: [phone] NoteHNO ID: [id number] Author: Mick Gallardo MD Service: Urology Author Type: Resident Type: Plan of Care Filed: 09/01/2020 7:18 AM Note Text: UROLOGY PLAN OF CARE: Continuous Bladder Irrigation PURPOSE: - To prevent blood clot formation, allow free flow of urine, and maintain indwelling hobson catheter patency. CATHETER BLOCKAGE: - Clot retention (catheter blockage) manifests itself with suprapubic distention, severe discomfort in the lower abdomen, sensation of needing to urinate, and passing of fluid around the catheter. Other symptoms include no urine output, and vaso-vagal symptoms ie sweating, tachycardia, hypotension, rectal urgency. - If the catheter becomes blocked during continuous bladder irrigation, the irrigation should be turned off immediately to prevent further bladder filling and further discomfort to the patient. - Manual bladder irrigation is necessary when the catheter cannot be unblocked (i.e. flushed with a ema syringe through catheter port with 60cc NS and withdraw 60cc). - Notify the Urology resident, [id number]. - Re-catheterization should not be attempted by nursing team. TROUBLESHOOTIN. Drainage out is less than irrigation infused. Stop the irrigation. Recalculate I AND O. Ensure that tubing is not kinked or looped below bladder level. Palpate bladder for distention. Use bladder scanner if available. If obstruction is suspected, gentle manual irrigation may be required as per physician?s orders. Notify physician if previous measures unsuccessful. 2. Increased bloody drainage or presence of clots. Increase rate of irrigation infusion as per physician?s orders. Irrigation of catheter to aid in clot removal may be indicated. If large amount blood or clots persists, notify Urology. 3. Patient complains of pain. Palpate bladder to determine presence of distention. Check drainage tubing for kinks. Observe drainage for adequate amount, presence of clots that might be blocking drainage tube. Evaluate I AND O. Avoid cold irrigation solution as it may cause bladder spasm. 4. Solution leaks around the hobson catheter. Assess for bladder spasms. Refer to #1 ? assessing for obstruction. Once obstruction has been ruled out, consider administering antispasmodics (ditropan, belladonna and opium suppositories, levsin, etc). Mick Gallardo, [facility] note Author Narinder Toussaint [facility] February 23, 2022 2:20pm Note Date/Time February 23, 2022 2 :20pm [facility] [address] [place] [address] Nephrology Consult Note Signed Patient: Cinthya Wilson MR#: [id number] : 1945 Acct:[id number] Age/Sex: 76 / F Adm Date: 3 Loc: 4N Room: 8H6464-6 Type: ADM IN Attending Dr: Jamal Schaefer MD Copies to: MD Lily Garrett II, MD Essam B Elashi, MD~ Providers Consult Date: 02/23/22 Requesting Provider: Jamal Schaefer MD Primary Care Provider: Lily Aldrich II, MD HPI Reason for Consult: CKD stage V with elevated BUN, mental confusion and volume overload History of Present Illness: Mrs. 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 Patient is known to our service and she had historyof DAVID requiring peritoneal dialysis for almost a year before renal recovery with serum creatinine stabilized at 2.5 mg/dL. Recently, CKD progressed to stage IV/V with recurrent admissions for CHF and pleural effusion and shortness of breath. She was also discharged from the hospital on November 2021 for fluid overload that was treated with diuretics and furosemide was increased to 60 mg twice a day. Patient has left arm AV fistula that is ready to be used. She had a recent ultrasound that showed fistula is less than 6 mm below the skin with adequate blood flow. Patient presented to the ER yesterday again with manifestation of shortness of breath with volume overload and altered mental status. She had poor appetite with decreased oral intake. She has difficulty to sleep over the last few days. She has mild abdominal distention, edema and shortness of breath. She normallywill 3 L/min nasal cannula at home. She has a recurrent pleural effusion that required thoracocentesis. Evaluation in the ER showed mild wheezes with laboredbreathing. ER lab showed hemoglobin of 8.2. Chemistry was significant for mildacidosis 18.4, BUN up to 126, creatinine 5.19 mg/dL significant higher than baseline. BNP is elevated as well 3549. Urine analysis showed 10-19 WBCs with no bacteria. Culture is pending. Nasal swab was negative for influenza and COVID-19. Chest x-ray showed bibasilar groundglass opacities and cardiomegaly. CT scan ofthe head showed atrophy and chronic microvascular changes. EKG showed sinus rhythm with first-degree AV block. Review of Systems Review of Systems All other systems reviewed & are negative unless noted below or in HPI Constitutional Constitutional: Reports system reviewed and no additional complaints, except as documented Cardiovascular Cardiovascular: Reports system reviewed and no additional complaints, except as documented Respiratory Respiratory: Reports system reviewed and no additional complaints, except as documented Gastrointestinal Gastrointestinal: Reports system reviewed and no additional complaints, except as documented Neurologic Neurologic: Reports system reviewed and no additional complaints, except as documented Hematologic/Lymphatic Hematologic/Lymphatic: Reports system reviewed and no additional complaints, except as documented PMFSH Vaccinated for COVID-19?: Yes Medical History Anemia Anxiety Anxiety and depression Arthritis CAD (coronary artery disease) Cataract had bilateral PHACO Cervical spinal stenosis CHF (congestive heart failure) Chronic back pain Chronic kidney disease COPD (chronic obstructive pulmonary disease) Diabetes GERD (gastroesophageal reflux disease) HTN (hypertension) Hyperlipidemia Insomnia Irregular heart rhythm prior to stent placement per pt report Lumbosacral spondylolysis LVH (left ventricular hypertrophy) Neck pain with history of cervical spinal surgery Neuropathy right thigh and feet Pneumonia Polymyalgia Skin cancer mohs procedure for removal Sleep apnea Surgical History H/O heart artery stent History of appendectomy History of back surgery lumbar History of x2 History of carpal tunnel release bilateral History of coronary angioplasty with insertion of stent History of D&C History of shoulder surgery rt shoulder History of tonsillectomy History of total abdominal hysterectomy and bilateral salpingo-oophorectomy Family History Father Heart disease Cancer Mother Cancer Diabetes Social History Smoking Status: Never smoker Substance Use Type: None Social History Comments: adult son Meds Medications & Allergies Allergies lisinopril Allergy (Verified 02/22/22 18:27) Cough Home Medications atorvastatin 40 mg tablet 40 mg PO QPM 11/19/16 [History Confirmed 02/22/22] hydralazine 50 mg tablet 50 mg PO TID 11/19/16 [History Confirmed 02/22/22] isosorbide mononitrate 60 mg tablet,extended release 24 hr 60 mg PO QAM 11/19/16[History Confirmed 02/22/22] multivitamin 1 tab PO DAILY 09/07/19 [History Confirmed 02/22/22] omeprazole 40 mg capsule,delayed release 40 mg PO DAILY 09/07/19 [History Confirmed 02/22/22] aspirin 81 mg tablet,delayed release 81 mg PO DAILY 11/25/19 [History Confirmed 02/22/22] carvedilol 3.125 mg tablet 12.5 mg PO BID 11/25/19 [History Confirmed 02/22/22] cholecalciferol (vitamin D3) 25 mcg (1,000 unit) tablet (Vitamin D3) 25 mcg PO DAILY 11/25/19 [History Confirmed 02/22/22] citalopram 40 mg tablet 40 mg PO DAILY 11/25/19 [History Confirmed 02/22/22] umeclidinium 62.5 mcg-vilanterol 25 mcg/actuation powdr for inhalation (Anoro Ellipta) 1 inh inhalation DAILY 11/25/19 [History Confirmed 02/22/22] albuterol sulfate 0.63 mg/3 mL solution for nebulization 0.63 mg inhalation QID PRN SOB 06/26/21 [History Confirmed 02/22/22] hydrocodone 7.5 mg-acetaminophen 325 mg tablet 1 tab PO Q6H PRN Pain 11/16/21 [History Confirmed 02/22/22] dextrose 40 % oral gel (Glutose-15) 0.6 g PO PRN PRN Hypoglycemia #112.5 grams 11/20/21 [Rx Confirmed 02/22/22] docusate sodium 100 mg capsule 100 mg PO BID #60 caps 11/20/21 [Rx Confirmed 02/22/22] furosemide 40 mg tablet 60 mg PO BID #60 tabs 11/20/21 [Rx Confirmed 02/22/22] insulin aspart U-100 100 unit/mL (3 mL) subcutaneous pen (Novolog FlexPen U-100 Insulin aspart) 1 sliding scale dose subcut TID.WM.HS #15 mL 11/20/21 [Rx Confirmed 02/22/22] losartan 25 mg tablet 25 mg PO DAILY #30 tabs 11/20/21 [Rx Confirmed 02/22/22] pen needle, diabetic 32 gauge x 5/32 (BD Ultra-Fine Lexis Pen Needle) #100 ea 11/20/21 [Rx Confirmed 02/22/22] Active Medications: Active Medications Acetaminophen (Acetaminophen 325 Mg Tablet) 650 mg PO Q6HR PRN PRN Reason: Pain Scale 1 - 3 or fever Stop: 02/22/23 21:16 Hydrocodone Bitart/Acetaminophen (Hydrocodone/Acetaminophen 7.5-325mg Tablet) 1tab PO Q6H PRN PRN Reason: Pain Last Admin: 02/23/22 08:25 Dose: 1 tab Albuterol (Albuterol Neb 2.5 Mg/3 Ml Vial.Neb) 2.5 mg INHALATION QID PRN PRN Reason: Shortness Of Breath Stop: 02/22/23 21:25 Albuterol/Ipratropium (Ipratropium/Albuterol 0.5-3 Mg 3 Ml Ampul.Neb) 3 ml INHALATION QID.RESP YESSENIA Stop: 02/23/23 07:59 Last Admin: 02/23/22 12:51 Dose: 3 ml Aspirin (Aspirin 81 Mg Tablet.) 81 mg PO DAILY YESSENIA Stop: 02/23/23 08:59 Last Admin: 02/23/22 08:25 Dose: 81 mg Atorvastatin Calcium (Atorvastatin 40 Mg Tablet) 40 mg PO QPM YESSENIA Stop: 02/23/23 20:59 Carvedilol (Carvedilol 12.5 Mg Tablet) 12.5 mg PO BID YESSENIA Stop: 02/23/23 08:59 Last Admin: 02/23/22 08:25 Dose: 12.5 mg Citalopram Hydrobromide (Citalopram 40 Mg Tablet) 40 mg PO DAILY YESSENIA Stop: 02/23/23 08:59 Last Admin: 02/23/22 08:25 Dose: 40 mg Docusate Sodium (Docusate 100 Mg Capsule) 100 mg PO BID YESSENIA Stop: 02/23/23 08:59 Last Admin: 02/23/22 08:25 Dose: 100 mg Furosemide (Furosemide 100 Mg/10 Ml Vial) 80 mg IV-PUSH BID@0800,1600 YESSENIA Stop: 02/22/23 21:24 Last Admin: 02/23/22 08:25 Dose: 80 mg Heparin Sodium (Porcine) (Heparin 5,000 Unit/Ml Vial) 5,000 unit SUBCUT Q8HR YESSENIA Stop: 02/22/23 21:59 Last Admin: 02/23/22 13:36 Dose: Not Given Heparin Sodium (Porcine) (Heparin 10,000 Unit/10 Ml Vial) 2,000 unit IV PRN PRN PRN Reason: Dialysis Stop: 02/23/23 10:58 Hydralazine HCl (Hydralazine 50 Mg Tablet) 50 mg PO TID [facility] Stop: 02/22/23 21:59 Last Admin: 02/23/22 13:36 Dose: Not Given Ceftriaxone Sodium (Rocephin) 1 gm in 50 mls @ 100 mls/hr IV Q24H [facility] Sodium Chloride (0.9% Sodium Chloride 1,000 Ml) 1,000 mls @ 0 mls/hr MISCELLANE.Q0M PRN PRN Reason: Dialysis Stop: 02/23/23 10:58 Insulin Aspart (Insulin Aspart 300 Units/3 Ml Insuln.Pen) 0 units SUBCUT TID.WM.HS [facility]; Protocol Stop: 02/22/23 21:59 Last Admin: 02/23/22 13:35 Dose: Not Given Isosorbide Mononitrate (Isosorbide Mononitrate 24hr Er 60 Mg Tab.Er.24h) 60 mg PO QAM [facility] Stop: 02/23/23 08:59 Last Admin: 02/23/22 08:25 Dose: 60 mg Melatonin (Melatonin 5 Mg Tablet) 5 mg PO QHS PRN PRN Reason: Insomnia Stop: 02/22/23 21:16 Nystatin (Nystatin 100,000 Unit/Gram Powder 15 Gm Bottle) 1 applic TOPICAL BID PRN PRN Reason: Skin Irritation Omeprazole (Omeprazole 20 Mg Capsule.Dr) 40 mg PO DAILY [facility] Stop: 02/23/23 08:59 Last Admin: 02/23/22 08:25 Dose: 40 mg Promethazine HCl (Promethazine 25 Mg/Ml Vial) 12.5 mg IV-PUSH Q6H PRN PRN Reason: Nausea And Vomiting Stop: 02/22/23 21:16 Sodium Bicarbonate (Sodium Bicarbonate 650 Mg Tablet) 1,300 mg PO TID [facility] Stop: 02/23/23 08:59 Last Admin: 02/23/22 13:36 Dose: Not Given Sodium Chloride (Sodium Chloride 0.9 % 10 Ml Syringe) 0 ml IV-PUSH PRN PRN PRN Reason: Flush Stop: 02/22/23 18:25 Last Admin: 02/23/22 08:26 Dose: 10 ml Sodium Chloride (Sodium Chloride 0.9 % 10 Ml Vial.Pf) 10 ml INJECTION PRN PRN PRN Reason: Promethazine Dilution Stop: 02/22/23 21:16 Sodium Chloride (Sodium Chloride 0.9 % 10 Ml Syringe) 0 ml IV-PUSH PRN PRN PRN Reason: Flush Stop: 02/23/23 10:58 Temazepam (Temazepam 15 Mg Capsule) 15 mg PO QHS PRN PRN Reason: Sleep Stop: 08/21/22 23:15 Last Admin: 02/22/22 23:53 Dose: 15 mg Tramadol HCl (Tramadol 50 Mg Tablet) 50 mg PO Q6H PRN PRN Reason: Pain Scale 4 - 7 Stop: 08/21/22 21:16 Exam Physical Exam Vital Signs: Temp Pulse Resp BP Pulse Ox O2 Del Method O2 Flow Rate 36.8 C 55 L 16 90/51 L 99 Nasal Cannula 3 02/23/22 11:33 02/23/22 11:33 02/23/22 11:33 02/23/22 11:33 02/23/22 11:33 02/23/22 11:33 02/23/22 11:33 Narrative: Constitutional: Looks ill with mild respiratory distress. She is mildly confused compared to her baseline HEENT: She has mild pallor. Mucous membranes are moist. Cardiovascular: RRR, normal S1-S2, no gallop or rub, No JVD Respiratory: Diminished breath sounds with no crackles or wheezes Gastrointestinal: Soft, non tender, positive bowel sounds. No palpable organs or masses Extremities: 2+ edema Skin: No rashes or bruises Musculoskeletal: No joints swellings or inflammation Neurology: Awake, alert, oriented ?3, No focal motor or sensory deficits. Patient has mild tremors and asterixis. Psych: Normal mood and affect Vascular access: Right arm AV fistula with good thrill. Results Labs 02/23/22 04:25 02/23/22 04:25 Labs: 02/22/22 02/22/22 02/23/22 19:08 19:26 04:25 BUN 126 H 126 H Creatinine 5.19 H 5.11 H Urine Color Yellow Urine Appearance Clear Urine pH 5.0 Ur Specific [place] 1.015 Urine Protein 100 H Urine Glucose (UA) Normal Urine Ketones Negative Urine Occult Blood Negative Urine Nitrite Negative Ur Leukocyte Esterase 2+ H Urine RBC 0-1 Urine WBC 10-19 H Urine Bacteria None seen Radiology Impressions Impressions - last 24 hours: Impressions Chest X-Ray 02/22/22 18:50 IMPRESSION: MILD CARDIOMEGALY. MILD PARENCHYMAL CHANGES, DESCRIBED. Impression dictated by: Dianna Pedro M.D.02/22/2022 8:01 PM Dictation Location: [place] [address] 02/22/22 18:50 IMPRESSION: ATROPHY AND CHRONIC MICROVASCULAR CHANGES. NO ACUTE INTRACRANIAL ABNORMALITY. Impression dictated by: Dianna Pedro M.D.02/22/2022 8:06 PM Dictation Location: [place] [address] Any impression(s) listed above is documentation that was entered by the reading physician into a diagnostic report(s) for Cinthya Wilson. I have reviewed the report(s) and am incorporating any findings in the treatment plan of this patient where applicable. A&P - Nephrology Assessment/Plan (1) ESRD (end stage renal disease): Assessment/Problem Details: Patient has progressive CKD currently reaching ESRD with recurrent admission forvolume overload. Clinically the patient has poor oral intake, edema with weightgain and asterixis. (2) Anemia: Assessment/Problem Details: Patient has anemia in the setting of advanced CKD. She denies any bleeding (3) Systolic and diastolic CHF, acute on chronic: Assessment/Problem Details: Patient has systolic and diastolic CHF currently with volume overload related toCKD with edema and respiratory distress (4) Diabetes: Assessment/Problem Details: Patient has a history of diabetes with multiple diabetic complications (5) Primary hypertension: Assessment/Problem Details: Blood pressure is controlled. She is on hydralazine and furosemide. Plan * I had discussion with the patient today that she reached ESRD and requires dialysis for uremic symptoms and volume overload. She did agree to proceed. She has a functioning AV fistula that would be used for the first time today. We will start first hemodialysis for 2 and half hour, 2 L ultrafiltration as tolerated. Dialysis orders in the chart. * Patient is currently on ceftriaxone as urine analysis on admission showed WBCs * Hemoglobin did drop down to 7.4 g/dL. We will check iron stores, B12 and folic acid and replete as indicated. We will start erythropoietin as needed. * Check phosphorus, calcium intact PTH * Monitor daily intake and output and renal panel. We will continue all other medication at this point. Next hemodialysis will be on Friday alert the patient need another urgent dialysis tomorrow. * Will arrange for outpatient hemodialysis. We will check hepatitis profile I appreciate this consultation we will be happy to follow the patient with you during her hospital stay. Documented By: Narinder Toussaint MD 02/23/22 1406 Signed By: <Electronically signed by MD Narinder Toussaint> 02/23/22 1420 [facility] Work Phone: Consult note Author Narinder Toussaint [facility] October 30, 2022 2:47pm Note Date/Time October 30, 2022 2:47pm [facility] [address] [place] [address] Nephrology Consult Note Signed Patient: Cinthya Wilson MR#: [id number] : 1945 Acct:[id number] Age/Sex: 77 / F Adm Date: 3 Loc: Room: [address] [place] [address] Type: ADM INOo Attending Dr: Carlton Mtz DO Copies to: MD Narinder Bourgeois II, MD Kristopher L Lindbloom, DO~ Providers Consult Date: 10/30/22 Requesting Provider: Carlton Mtz DO Primary Care Provider: Lily Aldrich II, MD HPI Reason for Consult: Management of ESRD and dialysis during hospital stay History of Present Illness: Ms. 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 Patient currently gets dialysis at [facility] dialysis unit on MWF schedule. She is on 3 L nasal cannula because of underlying COPD as well. Patient presented to ER on 10/29 after she sustained a fall with left shoulder pain. Patient stated that she tripped while she was in the walker. She hit her head however she denies any loss of consciousness. She denies any chest pain or dizziness. EKG in ER showed sinus rhythm with first-degree AV block and PVCs. CT scan of the head showed mild atrophy with no acute findings. CT of the spine shows no acute fracture. Chest x-ray showed right pleural effusion. Shoulder x-ray showed DJD with no fractures. Labs in the ER showed hyponatremia sodium 127, BUN 63 and creatinine 4.7. Hemoglobin stable 10.7 g/dL. Patient was admitted for further observation and nephrology was consulted at the patient is due for dialysis today. Patient is being seen and examined on hemodialysis. She looks ill and exhausted. Patient is currently on amiodarone drip as apparently she developed runs of V. tach after admission. She is being evaluated by cardiology. Patienthas minimal lower extremity edema. Blood pressure 111/65. Today sodium is up to 130 mmol/L. Patient denies any chest pain. She has shortness of breath seems to be at baseline. She has poor appetite. No nausea or vomiting. No diarrhea or constipation. No hematemesis or melena Review of Systems Review of Systems All other systems reviewed & are negative unless noted below or in HPI [facility] Medical History (Updated 10/30/22 @ 00:13 by Azar Palmer Jr, MD) Anemia Anxiety Anxiety and depression Arthritis AV fistula left CAD (coronary artery disease) Cataract had bilateral PHACO Cervical spinal stenosis CHF (congestive heart failure) Chronic back pain Chronic kidney disease COPD (chronic obstructive pulmonary disease) Diabetes GERD (gastroesophageal reflux disease) HTN (hypertension) Hyperlipidemia Insomnia Irregular heart rhythm prior to stent placement per pt report Lumbosacral spondylolysis LVH (left ventricular hypertrophy) Neck pain with history of cervical spinal surgery Neuropathy right thigh and feet Pneumonia Polymyalgia Skin cancer mohs procedure for removal Sleep apnea Surgical History H/O heart artery stent History of appendectomy History of back surgery lumbar History of x2 History of carpal tunnel release bilateral History of coronary angioplasty with insertion of stent History of D&C History of shoulder surgery rt shoulder History of tonsillectomy History of total abdominal hysterectomy and bilateral salpingo-oophorectomy Family History Father Heart disease Cancer Mother Cancer Diabetes Social History Smoking Status: Never smoker Substance Use Type: None Social History Comments: adult son Meds Medications & Allergies Allergies lisinopril Allergy (Verified 10/29/22 20:08) Cough Home Medications atorvastatin 40 mg tablet 40 mg PO QPM 11/19/16 [History Confirmed 10/29/22] multivitamin 1 tab PO DAILY 09/07/19 [History Confirmed 10/29/22] aspirin 81 mg tablet,delayed release 81 mg PO DAILY 11/25/19 [History Confirmed 10/29/22] cholecalciferol (vitamin D3) 25 mcg (1,000 unit) tablet (Vitamin D3) 25 mcg PO DAILY 11/25/19 [History Confirmed 10/29/22] citalopram 40 mg tablet 40 mg PO DAILY 11/25/19 [History Confirmed 10/29/22] umeclidinium 62.5 mcg-vilanterol 25 mcg/actuation powdr for inhalation (Anoro Ellipta) 1 inh inhalation DAILY 11/25/19 [History Confirmed 10/29/22] albuterol sulfate 0.63 mg/3 mL solution for nebulization 0.63 mg inhalation QID PRN SOB 06/26/21 [History Confirmed 10/29/22] dextrose 40 % oral gel (Glutose-15) 0.6 g PO PRN PRN Hypoglycemia #112.5 grams 11/20/21 [Rx Confirmed 10/29/22] docusate sodium 100 mg capsule 100 mg PO BID #60 caps 11/20/21 [Rx Confirmed 10/29/22] furosemide 40 mg tablet 60 mg PO BID #60 tabs 11/20/21 [Rx Confirmed 10/29/22] insulin aspart U-100 100 unit/mL (3 mL) subcutaneous pen (Novolog FlexPen U-100 Insulin aspart) 1 sliding scale dose subcut TID.WM.HS #15 mL 11/20/21 [Rx Confirmed 10/29/22] pen needle, diabetic 32 gauge x 5/32 (BD Ultra-Fine Lexis Pen Needle) #100 ea 11/20/21 [Rx Confirmed 10/29/22] calcium acetate(phosphat bind) 667 mg capsule 667 mg PO TID.WITH.MEALS 60 days #240 caps 02/26/22 [Rx Confirmed 10/29/22] hydrocodone 7.5 mg-acetaminophen 325 mg tablet 1 tab PO Q6H PRN Pain 2 days #8 tabs 02/26/22 [Rx Confirmed 10/29/22] isosorbide mononitrate 60 mg tablet,extended release 24 hr 60 mg PO DAILY 05/02/22 [History Confirmed 10/29/22] valsartan 160 mg tablet 160 mg PO DAILY 05/02/22 [History Confirmed 10/29/22] carvedilol 12.5 mg tablet 12.5 mg PO BID 05/17/22 [History Confirmed 10/29/22] pantoprazole 40 mg tablet,delayed release 40 mg PO DAILY 05/17/22 [History Confirmed 10/29/22] sennosides 8.6 mg tablet (senna) 8.6 mg PO BID 05/17/22 [History Confirmed 10/29/22] amoxicillin 500 mg-potassium clavulanate 125 mg tablet 1 tab PO TID 10/29/22 [History Confirmed 10/29/22] midodrine 5 mg tablet 5 mg PO TID PRN pre hd 10/29/22 [History Confirmed 10/29/22] Active Medications: Active Medications Acetaminophen (Acetaminophen 325 Mg Tablet) 650 mg PO Q6HR PRN PRN Reason: Pain Scale 1 - 3 or fever Stop: 10/29/23 23:49 Last Admin: 10/30/22 07:43 Dose: 650 mg Albuterol (Albuterol Neb 2.5 Mg/3 Ml Vial.Neb) 0.63 mg INHALATION QID PRN PRN Reason: Shortness Of Breath Stop: 10/30/23 04:36 Albuterol/Ipratropium (Ipratropium/Albuterol 0.5-3 Mg 3 Ml Ampul.Neb) 1 ml INHALATION QID [facility] Stop: 10/30/23 08:59 Last Admin: 10/30/22 14:02 Dose: 1 ml Aspirin (Aspirin 81 Mg Tablet.) 81 mg PO DAILY [facility] Stop: 10/30/23 08:59 Last Admin: 10/30/22 08:47 Dose: 81 mg Atorvastatin Calcium (Atorvastatin 40 Mg Tablet) 40 mg PO QPM [facility] Stop: 10/30/23 20:59 Calcium Acetate (Calcium Acetate 667 Mg Capsule) 667 mg PO TID.WITH.MEALS [facility] Stop: 10/30/23 07:59 Last Admin: 10/30/22 13:00 Dose: Not Given Darbepoetin Theodore (Darbepoetin Theodore In Polysorbat 60 Mcg/Ml Vial) 60 mcg IV-PUSHWe@1015 [facility] Stop: 10/30/23 10:14 Last Admin: 10/30/22 10:16 Dose: 60 mcg Dextrose (Dextrose 50% In Water 25 Gm/50 Ml Syringe) 0 gm IV-PUSH PRN PRN PRN Reason: Hypoglycemia Stop: 10/29/23 23:55 Docusate Sodium (Docusate 100 Mg Capsule) 100 mg PO BID [facility] Stop: 10/30/23 08:59 Last Admin: 10/30/22 08:47 Dose: 100 mg Glucose (Dextrose 40% Gel 15 Gm Tube) 0 gm PO PRN PRN PRN Reason: Hypoglycemia Stop: 10/29/23 23:55 Glucose (Dextrose 40% Gel 15 Gm Tube) 0.6 gm PO PRN PRN PRN Reason: Hypoglycemia Stop: 10/30/23 04:23 Heparin Sodium (Porcine) (Heparin 5,000 Unit/Ml Vial) 5,000 unit SUBCUT Q12HR [facility] Stop: 10/30/23 08:59 Last Admin: 10/30/22 08:47 Dose: 5,000 unit Amiodarone HCl 450 mg/ (Dextrose) 250 mls @ 33.333 mls/hr IV .Q7H30M [facility]; Protocol Stop: 10/31/22 03:59 Last Admin: 10/30/22 13:25 Dose: Not Given Sodium Chloride (0.9% Sodium Chloride 1,000 Ml) 1,000 mls @ 0 mls/hr MISCELLANE.Q0M PRN PRN Reason: Dialysis Stop: 10/30/23 09:03 Last Infusion: 10/30/22 10:17 Dose: Infused Insulin Aspart (Insulin Aspart 300 Units/3 Ml Insuln.Pen) 0 units SUBCUT TID.WM.HS [facility]; Protocol Stop: 10/30/23 07:59 Last Admin: 10/30/22 14:21 Dose: Not Given Isosorbide Mononitrate (Isosorbide Mononitrate 24hr Er 60 Mg Tab.Er.24h) 60 mg PO DAILY [facility] Stop: 10/30/23 08:59 Midodrine (Midodrine 5 Mg Tablet) 5 mg PO MoWeFr@1000 PRN PRN Reason: for SBP < 85 Stop: 10/30/23 09:03 Naloxone HCl (Naloxone Hcl 0.4 Mg/Ml Vial) 0.1 mg IV-PUSH Q2M PRN PRN Reason: Opioid Reversal Stop: 10/29/23 23:49 Ondansetron HCl (Ondansetron Odt 4 Mg Tab.Rapdis) 4 mg PO Q6HR PRN PRN Reason: Nausea And Vomiting Stop: 10/29/23 23:49 Pantoprazole Sodium (Pantoprazole 40 Mg Tablet.Dr) 40 mg PO DAILY [facility] Stop: 10/30/23 08:59 Last Admin: 10/30/22 08:47 Dose: 40 mg Sennosides (Sennosides 8.6 Mg Tablet) 1 tab PO BID [facility] Stop: 10/30/23 08:59 Last Admin: 10/30/22 08:47 Dose: 1 tab Sodium Chloride (Sodium Chloride 0.9 % 10 Ml Syringe) 0 ml IV-PUSH PRN PRN PRN Reason: Flush Stop: 10/29/23 20:01 Last Admin: 10/30/22 10:15 Dose: 10 ml Sodium Chloride (Sodium Chloride 0.9 % 10 Ml Syringe) 0 ml IV-PUSH QSHIFT [facility] Stop: 10/30/23 05:59 Last Admin: 10/30/22 13:26 Dose: Not Given Sodium Chloride (Sodium Chloride 0.9 % 10 Ml Syringe) 0 ml IV-PUSH PRN PRN PRN Reason: Flush Stop: 10/30/23 09:03 Tramadol HCl (Tramadol 50 Mg Tablet) 50 mg PO Q12H PRN PRN Reason: Pain Scale 4 - 7 Stop: 04/27/23 23:49 Last Admin: 10/30/22 07:43 Dose: 50 mg Exam Physical Exam Vital Signs: Temp Pulse Resp BP Pulse Ox O2 Del Method O2 Flow Rate 36.6 C 73 16 111/65 99 Nasal Cannula 3 10/30/22 14:10 10/30/22 14:10 10/30/22 14:10 10/30/22 14:10 10/30/22 14:10 10/30/22 14:10 10/30/22 14:10 Narrative: Constitutional: Looks ill with minimal respiratory distress on oxygen. HEENT: She has mild pallor. Mucous membranes are moist. Cardiovascular: RRR, normal S1-S2, no gallop or rub, No JVD Respiratory: Diminished breath sounds with no crackles or wheezes Gastrointestinal: Soft, non tender, positive bowel sounds. No palpable organs or masses Extremities: 1+ edema Skin: No rashes or bruises Musculoskeletal: Left shoulder tenderness. No swellings or inflammation Neurology: Awake, alert, oriented ?3, No focal motor or sensory deficits. Psych: Normal mood and affect Vascular access: Left arm AV fistula with good thrill. Results Labs 10/30/22 05:18 10/30/22 05:18 Labs: 10/29/22 10/30/22 20:40 05:18 BUN 63 H 72 H Creatinine 4.72 H 5.32 H D Phosphorus 6.4 Albumin 3.5 Radiology Impressions Impressions - last 24 hours: Impressions Shoulder X-Ray 10/29/22 20:40 IMPRESSION: Severe degenerative changes are noted in the left shoulder with findings suggesting underlying rotator cuff abnormalities. No fracture or dislocation. Impression dictated by: Jossie Díaz M.D.10/30/2022 8:01 AM Dictation Location: [place] [address] 10/29/22 20:42 IMPRESSION: No acute fracture. Similar degenerative and postoperative change. Impression dictated by: David Archer M.D.10/29/2022 9:30 PM Dictation Location: [place] [address] Chest X-Ray 10/29/22 20:42 IMPRESSION: Atherosclerotic changes are present in the thoracic aorta. There are small bilateral pleural effusions with hazy airspace opacities showing slight intervalimprovement when compared to the prior exam. Impression dictated by: Jossie Díaz M.D.10/30/2022 8:00 AM Dictation Location: [place] [address] 10/29/22 20:42 IMPRESSION: No acute intracranial findings. Impression dictated by: David Archer M.D.10/29/2022 9:25 PM Dictation Location: [place] [address] Any impression(s) listed above is documentation that was entered by the reading physician into a diagnostic report(s) for Cinthya Wilson. I have reviewed the report(s) and am incorporating any findings in the treatment plan of this patient where applicable. ECG Data Attestation: I reviewed this ECG and interpreted as documented below: ECG Narrative: Sinus rhythm with first-degree AV block A&P - Nephrology Assessment/Plan (1) ESRD (end stage renal disease): Assessment/Problem Details: Patient has ESRD related to DM 2 and atherosclerotic renovascular disease with recurrent CHF. Patient was started hemodialysis on 02/23/2022 with manifestations of uremia and volume overload. She is [facility] schedule (2) Fall at home: Assessment/Problem Details: Patient had a mechanical fall at home. She denies any dizziness. No evidence of fractures per (3) Anemia: Assessment/Problem Details: Patient has anemia in the setting of advanced CKD. Hemoglobin is variable between 9.5 to 10 g/dL on erythropoietin as outpatient. Patient has a history of diverticulosis with recurrent hemoglobin drop. (4) Systolic and diastolic CHF, acute on chronic: Assessment/Problem Details: CHF is markedly improved after starting dialysis with ultrafiltration. BNP is elevated. She has mild volume overload (5) Diabetes: Assessment/Problem Details: Patient has a history of diabetes with multiple diabetic complications Plan * Hemodialysis today for 210 minutes, 3K bath. 3 L ultrafiltration as tolerated at the patient seems to be have volume overload with hyponatremia. * Patient is currently on amiodarone drip since she had V. tach last night. Currently has regular sinus rhythm. Patient is being evaluated by cardiology. * Continue Aranesp 60 mcg weekly with dialysis, 1 dose was given today. * Continue calcium acetate 667 mg with each meal * All medications were reviewed. * Monitor daily intake and output and renal panel. Next hemodialysis will be Friday per her schedule Documented By: Narinder Toussaint MD 10/30/22 1431 Signed By: <Electronically signed by MD Narinder Toussaint> 10/30/22 1447 [facility] Work Phone: Consult note Author Edie Michel [facility] October 30, 2022 4:25pm Note Date/Time October 30, 2022 4:03pm [facility] [address] [place] [address] Cardiology Consult Note Signed Patient: Cinthya Wilson MR#: [id number] : 1945 Acct:[id number] Age/Sex: 77 / F Adm Date: 3 Loc: 4P Room: [address] [place] [address] Type: ADM INOo Attending Dr: Carlton Mtz DO Copies to: MD Carlton Bourgeois II, DO Linda Njoroge, MD~ Cardiology HPI History of Present Illness Consult Date: 10/30/22 Reason for Consult: Nonsustained VT HPI: Ms. Wilson is a 77 year old female with past medical history significant for CADstatus post PCI x1 about 10 years ago in [place], ESRD on HD, hypertension, hyperlipidemia, CHF, COPD on 3 L nasal cannula who presented to the ED with left shoulder pain after sustaining a mechanical fall. She denies chest pain, lightheadedness, palpitations or syncope. On arrival to the ED the EKG was significant for sinus rhythm with first-degree AV block, old anterior infarct and PVCs. He was noted to have multiple runs of nonsustained VT and cardiology was consulted for further recommendations. On further inquiry patient denies any palpitations, lightheadedness or presyncope with episodes of nonsustained VT. She was started on amiodarone dripwhich has since been stopped as she has developed hypotension. Labs showed minimal troponin elevation with elevated BNP consistent with ESRD. Chest x-ray showed minimal bilateral pleural effusions. Patient reports that she follows up with Dr. Lutz in [facility] and was last seen a few weeks ago where her cardiac medications were decreased due to hypotension. She has since been started on midodrine. She reports having an echo in the last year but is unsure or her EF. Review of Systems Review of Systems All other systems reviewed & are negative unless noted below or in HPI [facility] Medical History (Updated 10/30/22 @ 16:17 by Edie Michel MD) Anemia Anxiety Anxiety and depression Arthritis AV fistula left CAD (coronary artery disease) Cataract had bilateral PHACO Cervical spinal stenosis CHF (congestive heart failure) Chronic back pain Chronic kidney disease COPD (chronic obstructive pulmonary disease) Diabetes GERD (gastroesophageal reflux disease) HTN (hypertension) Hyperlipidemia Insomnia Irregular heart rhythm prior to stent placement per pt report Lumbosacral spondylolysis LVH (left ventricular hypertrophy) Neck pain with history of cervical spinal surgery Neuropathy right thigh and feet Pneumonia Polymyalgia Skin cancer mohs procedure for removal Sleep apnea Surgical History H/O heart artery stent History of appendectomy History of back surgery lumbar History of x2 History of carpal tunnel release bilateral History of coronary angioplasty with insertion of stent History of D&C History of shoulder surgery rt shoulder History of tonsillectomy History of total abdominal hysterectomy and bilateral salpingo-oophorectomy Family History Father Heart disease Cancer Mother Cancer Diabetes Social History Smoking Status: Never smoker Substance Use Type: None Social History Comments: adult son Meds Medications and Allergies Allergies lisinopril Allergy (Verified 10/29/22 20:08) Cough Home Medications atorvastatin 40 mg tablet 40 mg PO QPM 11/19/16 [History Confirmed 10/29/22] multivitamin 1 tab PO DAILY 09/07/19 [History Confirmed 10/29/22] aspirin 81 mg tablet,delayed release 81 mg PO DAILY 11/25/19 [History Confirmed 10/29/22] cholecalciferol (vitamin D3) 25 mcg (1,000 unit) tablet (Vitamin D3) 25 mcg PO DAILY 11/25/19 [History Confirmed 10/29/22] citalopram 40 mg tablet 40 mg PO DAILY 11/25/19 [History Confirmed 10/29/22] umeclidinium 62.5 mcg-vilanterol 25 mcg/actuation powdr for inhalation (Anoro Ellipta) 1 inh inhalation DAILY 11/25/19 [History Confirmed 10/29/22] albuterol sulfate 0.63 mg/3 mL solution for nebulization 0.63 mg inhalation QID PRN SOB 06/26/21 [History Confirmed 10/29/22] dextrose 40 % oral gel (Glutose-15) 0.6 g PO PRN PRN Hypoglycemia #112.5 grams 11/20/21 [Rx Confirmed 10/29/22] docusate sodium 100 mg capsule 100 mg PO BID #60 caps 11/20/21 [Rx Confirmed 10/29/22] furosemide 40 mg tablet 60 mg PO BID #60 tabs 11/20/21 [Rx Confirmed 10/29/22] insulin aspart U-100 100 unit/mL (3 mL) subcutaneous pen (Novolog FlexPen U-100 Insulin aspart) 1 sliding scale dose subcut TID.WM.HS #15 mL 11/20/21 [Rx Confirmed 10/29/22] pen needle, diabetic 32 gauge x 5/32 (BD Ultra-Fine Elxis Pen Needle) #100 ea 11/20/21 [Rx Confirmed 10/29/22] calcium acetate(phosphat bind) 667 mg capsule 667 mg PO TID.WITH.MEALS 60 days #240 caps 02/26/22 [Rx Confirmed 10/29/22] hydrocodone 7.5 mg-acetaminophen 325 mg tablet 1 tab PO Q6H PRN Pain 2 days #8 tabs 02/26/22 [Rx Confirmed 10/29/22] isosorbide mononitrate 60 mg tablet,extended release 24 hr 60 mg PO DAILY 05/02/22 [History Confirmed 10/29/22] valsartan 160 mg tablet 160 mg PO DAILY 05/02/22 [History Confirmed 10/29/22] carvedilol 12.5 mg tablet 12.5 mg PO BID 05/17/22 [History Confirmed 10/29/22] pantoprazole 40 mg tablet,delayed release 40 mg PO DAILY 05/17/22 [History Confirmed 10/29/22] sennosides 8.6 mg tablet (senna) 8.6 mg PO BID 05/17/22 [History Confirmed 10/29/22] amoxicillin 500 mg-potassium clavulanate 125 mg tablet 1 tab PO TID 10/29/22 [History Confirmed 10/29/22] midodrine 5 mg tablet 5 mg PO TID PRN pre hd 10/29/22 [History Confirmed 10/29/22] Exam Physical Exam Vital Signs: Temp Pulse Resp BP Pulse Ox O2 Del Method O2 Flow Rate 97.9 F 73 16 111/65 99 Nasal Cannula 3 10/30/22 14:10 10/30/22 14:10 10/30/22 14:10 10/30/22 14:10 10/30/22 14:10 10/30/22 14:10 10/30/22 14:10 Const General: no acute distress, ill appearing and other (Seen while in dialysis) Orientation: alert, awake and oriented x3 Eyes EOM: EOM intact bilaterally Resp Effort & Inspection: normal respiratory effort and able to speak in complete sentences Auscultation: clear to auscultation bilaterally Cardio Jugular venous pressure: no JVD Heart Sounds: S1 normal, S2 normal, no gallops, no murmurs and no rubs Skin Hair: general thinning and patchy alopecia Neuro General: patient alert, patient awake, patient oriented x3 and no focal motor deficits Psych Appearance: grossly normal Results Labs 10/30/22 05:18 10/30/22 05:18 Lab results: Cardiac Enzymes 10/29/22 10/29/22 10/29/22 Range/Units 20:40 20:40 20:40 AST 19 (13-39) U/L Total Creatine Kinase 29 L (30-223) U/L B-Natriuretic Peptide 806.0 H (5-100) pg/mL CBC 10/29/22 10/30/22 Range/Units 20:40 05:18 RBC 3.55 L 3.05 L (3.60-5.00) X10E6/uL Hgb 10.7 L 9.2 L (11.8-15.4) g/dL Hct 32.7 L 28.4 L (34.0-46.4) % Plt Count 371 312 (150-450) x10E3/uL Neut # (Auto) 4.6 4.5 (1.8-7.7) x10E3/uL Lymph # (Auto) 1.0 1.1 (1.00-4.8) x10E3/uL [place] # (Auto) 0.9 H 1.1 H (0.0-0.8) x10E3/uL Eos # (Auto) 0.2 0.3 (0.0-0.45) x10E3/uL Baso # (Auto) 0.0 0.1 (0.0-0.2) x10E3/uL Comprehensive Metabolic Panel 10/29/22 10/30/22 Range/Units 20:40 05:18 Sodium 127 L 130 L (136-145) mmol/L Potassium 3.7 3.9 (3.5-5.1) mmol/L Chloride 90 L 89 L (98-107) mmol/L Carbon Dioxide 23.3 24.4 (21.0-31.0) mmol/L BUN 63 H 72 H (7-25) mg/dL Creatinine 4.72 H 5.32 H D (0.60-1.20) mg/dL Glucose 191 H 191 H (70-100) mg/dL Calcium 10.2 10.0 (8.6-10.3) mg/dL AST 19 (13-39) U/L ALT 19 (7-52) U/L Alkaline Phosphatase 135 H (34-104) U/L Total Protein 7.6 (6.4-8.9) gm/dL Albumin 3.5 (3.5-5.7) gm/dL Intake and Output 10/30/22 10/30/22 10/30/22 07:59 15:59 23:59 Intake Total 400 / 1460 1060 / 1460 Output Total 0 / 725 725 / 725 Balance 400 / 735 335 / 735 Intake: IV 400 / 960 560 / 960 Amiodarone 150Mg-*D5w* 150 mg 100 / 100 In 100 ml @ 600 mls/hr IV BOLUS ONE Rx#:[id number] Amiodarone 450 mg In Dextrose 5 60 / 60 % in Water [place] 241 ml @ 1 MG /MIN 33.333 mls/hr IV .Q7H30M [facility] Rx#:[id number] Magnesium Sulf 2Gm-*Swfi* 2 gm 50 / 50 In 50 ml @ 25 mls/hr IV ONCE ONE Rx#:[id number] Sodium Chloride 0.9% 1,000 ml 250 / 250 250 ml @ 999 mls/hr IV .Q16M ONE Rx#:[id number] Sodium Chloride 0.9% 1,000 ml 1 500 / 500 ,000 ml @ As Directed MISCELLANE .Q0M PRN Rx#: [id number] Oral 200 / 200 Dialysis Intake 300 / 300 Output: Urine 0 / 0 Dialysis Output 725 / 725 Other: # Unmeasured Voids 0 # Bowel Movements 0 Weight 63 kg Date of Last Bowel Movement 10/29/22 10/29/22 Patient Weight 10/30/22 23:59 Weight 63 kg Lab 10/29/22 20:40 PT 12.5 INR 1.1 APTT 30.5 A&P - Cardiology (1) Nonsustained ventricular tachycardia: Assessment/Problem Details: 77 year old female with past medical history significant for CAD status post PCIx1 about 10 years ago in [place], ESRD on HD, hypertension, hyperlipidemia, CHF, COPD on 3 L nasal cannula who presented to the ED with left shoulder pain after sustaining a mechanical fall and was found to have multiple runs of nonsustainedVT and hypotension. Plan: -Asymptomatic runs of nonsustained VT. No signs of active ongoing ischemia. -Stop amiodarone drip. We will plan on resuming home carvedilol 3.125 mg twice daily once blood pressure stabilizes. -Keep potassium >4 and magnesium >2 Code(s): I47.29 - Other ventricular tachycardia (2) CAD (coronary artery disease): Assessment/Problem Details: Stable CAD. Asymptomatic. Plan: -Imdur discontinued from the office due to hypotension. Continue aspirin 81 mg daily and Lipitor 40 mg daily -We will obtain cardiology records. Code(s): I25.10 - Atherosclerotic heart disease of [place] coronary artery without angina pectoris (3) Systolic and diastolic CHF, acute on chronic: Assessment/Problem Details: NYHA class II. ACC stage C Plan: -Will obtain records to document most recent EF -Continue volume management via HD -We will plan to start goal-directed medical therapy pending blood pressure stabilization following dialysis. Code(s): I50.43 - Acute on chronic combined systolic (congestive) and diastolic (congestive) heart failure Plan Cardiology will follow Documented By: Edie Michel MD 10/30/22 1600 Signed By: <Electronically signed by Edie Michel MD> 10/30/22 1625 [facility] Work Phone: Consult note Author Narinder Toussaint [facility] December 30, 2022 12:46pm Note Date/Time December 30, 2022 12:46pm [facility] [address] [place] [address] Nephrology Consult Note Signed Patient: Cinthya Wilson MR#: [id number] : 1945 Acct:[id number] Age/Sex: 77 / F Adm Date: 3 Loc: Room: [address] [place] [address] Type: ADM IN Attending Dr: Tatiana Loya MD Copies to: MD Lily Duran II, MD Essam B Elashi, MD~ Providers Consult Date: 12/30/22 Requesting Provider: Tatiana Loya MD Primary Care Provider: Lily Aldrich II, MD [facility] Reason for Consult: Management of ESRD and dialysis during hospital stay History of Present Illness: Ms. 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 Patient currently gets dialysis at [facility] dialysis unit on MWF schedule. Patient had recent admission on December 07 for syncopal episode and she was found to have episodes of nonsustained V. tach with prolonged QT interval. She was evaluated by cardiology on several occasions, first carvedilol switched to metoprolol however because of bradycardia and persistent current nonsustained V. tach, she was started on amiodarone with holding metoprolol. Patient was informed that she will need a pacemaker as outpatient and she was supposed to follow-up with cardiology by the end of this month. Evaluation in ER showed bradycardia 30s to40/min. Hemoglobin was down to 8.5 g/dL compared to 10.4 on December 16. Patient is not on anticoagulation. Patient came to the ER because of persistent weakness and almost fell just getting out of the bed to the bedside commode. She stated that she has pain allover her body involving the joints and bone. Recently her narcotics was upgraded to oxycodone every 6 hours. Patient has COPD with chronic hypoxemic respiratory failure on 3 L oxygen at home. Patient is due for dialysis today hence nephrology was consulted. Patient is being seen and examined in the ICU on dialysis. She is awake howevershe has mild confusion. Patient receiving oxycodone as well and recently she was prescribed gabapentin. She stated that she takes oxycodone for arthritic pain. Globin is down to 8.5 g/dL stated above. He has a history of GERD however no history of peptic ulcer disease. She is not on any nonsteroidal anti-inflammatory drugs. Platelet count 386. She has elevated ferritin with iron saturation below 20%. Patient has decreased appetite. She is cachectic and she is losing weight. No edema however BNP is chronically elevated 1758. Albumin 3. COVID-19 was negative. Patient denies any nausea or vomiting. No chest pain. He has a chronic shortness of breath that is not different from baseline Review of Systems Review of Systems All other systems reviewed & are negative unless noted below or in HPI Constitutional Constitutional: Reports system reviewed and no additional complaints, except as documented Cardiovascular Cardiovascular: Reports system reviewed and no additional complaints, except as documented Respiratory Respiratory: Reports system reviewed and no additional complaints, except as documented Gastrointestinal Gastrointestinal: Reports system reviewed and no additional complaints, except as documented Neurologic Neurologic: Reports system reviewed and no additional complaints, except as documented Hematologic/Lymphatic Hematologic/Lymphatic: Reports system reviewed and no additional complaints, except as documented [facility] Medical History Anemia Anxiety Anxiety and depression Arthritis AV fistula left CAD (coronary artery disease) Cataract had bilateral PHACO Cervical spinal stenosis CHF (congestive heart failure) Chronic back pain Chronic kidney disease COPD (chronic obstructive pulmonary disease) Diabetes ESRD (end stage renal disease) GERD (gastroesophageal reflux disease) HTN (hypertension) Hyperlipidemia Insomnia Irregular heart rhythm prior to stent placement per pt report Lumbosacral spondylolysis LVH (left ventricular hypertrophy) Neck pain with history of cervical spinal surgery Neuropathy right thigh and feet Pneumonia Polymyalgia Skin cancer mohs procedure for removal Sleep apnea Surgical History H/O heart artery stent History of appendectomy History of back surgery lumbar History of x2 History of carpal tunnel release bilateral History of coronary angioplasty with insertion of stent History of D&C History of shoulder surgery rt shoulder History of tonsillectomy History of total abdominal hysterectomy and bilateral salpingo-oophorectomy Family History Father Heart disease Cancer Mother Cancer Diabetes Social History Smoking Status: Never smoker Substance Use Type: None Social History Comments: adult son Meds Medications & Allergies Allergies lisinopril Allergy (Verified 12/06/22 18:31) Cough Home Medications atorvastatin 40 mg tablet 40 mg PO QPM 11/19/16 [History Confirmed 12/29/22] multivitamin 1 tab PO DAILY 09/07/19 [History Confirmed 12/29/22] aspirin 81 mg tablet,delayed release 81 mg PO DAILY 11/25/19 [History Confirmed 12/29/22] cholecalciferol (vitamin D3) 25 mcg (1,000 unit) tablet (Vitamin D3) 25 mcg PO DAILY 11/25/19 [History Confirmed 12/29/22] citalopram 40 mg tablet 40 mg PO DAILY 11/25/19 [History Confirmed 12/29/22] albuterol sulfate 0.63 mg/3 mL solution for nebulization 0.63 mg inhalation QID PRN SOB 06/26/21 [History Confirmed 12/29/22] dextrose 40 % oral gel (Glutose-15) 0.6 g PO PRN PRN Hypoglycemia #112.5 grams 11/20/21 [Rx Confirmed 12/29/22] docusate sodium 100 mg capsule 100 mg PO BID #60 caps 11/20/21 [Rx Confirmed 12/29/22] insulin aspart U-100 100 unit/mL (3 mL) subcutaneous pen (Novolog FlexPen U-100 Insulin aspart) 1 sliding scale dose subcut TID.WM.HS #15 mL 11/20/21 [Rx Confirmed 12/29/22] pen needle, diabetic 32 gauge x 5/32 (BD Ultra-Fine Lexis Pen Needle) #100 ea 11/20/21 [Rx Confirmed 12/13/22] calcium acetate(phosphat bind) 667 mg capsule 667 mg PO TID.WITH.MEALS 60 days #240 caps 02/26/22 [Rx Confirmed 12/29/22] pantoprazole 40 mg tablet,delayed release 40 mg PO DAILY 05/17/22 [History Confirmed 12/29/22] diclofenac sodium 1 % topical gel (Voltaren Arthritis Pain) 4 g topical QID #0 grams 10/31/22 [Rx Confirmed 12/29/22] furosemide 20 mg tablet 60 mg PO BID 30 days #180 tabs 10/31/22 [Rx Confirmed 12/29/22] fluticasone fur. 100 mcg-umeclid 62.5 mcg-vilant 25 mcg inhalat.powder (Trelegy Ellipta) 1 ea inhalation DAILY 12/06/22 [History Confirmed 12/29/22] oxycodone-acetaminophen 5 mg-325 mg tablet 1 tab PO Q4-6H PRN Pain 12/06/22 [History Confirmed 12/29/22] pramipexole 0.5 mg tablet 0.5 mg PO HS 12/06/22 [History Confirmed 12/29/22] midodrine 5 mg tablet 5 mg PO TID PRN Hypotension 12/07/22 [History Confirmed 12/29/22] darbepoetin theodore in polysorbat 60 mcg/mL in polysorbate injection (Aranesp) mcg 12/29/22 [History] fluticasone fur. 100 mcg-umeclid 62.5 mcg-vilant 25 mcg inhalat.powder (Trelegy Ellipta) inhalation 12/29/22 [History] insulin lispro 100 unit/mL subcutaneous pen (Humalog KwikPen (U-100) Insulin) subcut 12/29/22 [History] ondansetron 4 mg disintegrating tablet 4 mg PO Q6H PRN Nausea 12/29/22 [History Confirmed 12/29/22] pramipexole 0.5 mg tablet (Mirapex) 0.5 mg PO QHS 12/29/22 [History Confirmed 12/29/22] Active Medications: Active Medications Acetaminophen (Acetaminophen 325 Mg Tablet) 650 mg PO Q6HR PRN PRN Reason: Pain Scale 1 - 3 or fever Stop: 12/30/23 02:48 Albuterol (Albuterol Neb 2.5 Mg/3 Ml Vial.Neb) 0.63 mg INHALATION QID PRN PRN Reason: Shortness Of Breath Stop: 12/30/23 03:52 Atorvastatin Calcium (Atorvastatin 40 Mg Tablet) 40 mg PO QPM [facility] Stop: 12/30/23 20:59 Bisacodyl (Bisacodyl 5 Mg Tablet.Dr) 5 mg PO BID PRN PRN Reason: Constipation Stop: 12/30/23 03:22 Calcium Acetate (Calcium Acetate 667 Mg Capsule) 667 mg PO TID.WITH.MEALS [facility] Stop: 12/30/23 07:59 Last Admin: 12/30/22 08:02 Dose: 667 mg Citalopram Hydrobromide (Citalopram 40 Mg Tablet) 40 mg PO DAILY YESSENIA Stop: 12/30/23 08:59 Last Admin: 12/30/22 08:20 Dose: 40 mg Darbepoetin Theodore (Darbepoetin Theodore In Polysorbat 60 Mcg/Ml Vial) 80 mcg IV- PUSHWE YESSENIA Stop: 01/01/24 08:28 Dextrose (Dextrose 50% In Water 25 Gm/50 Ml Syringe) 0 gm IV-PUSH PRN PRN PRN Reason: Hypoglycemia Stop: 12/30/23 03:22 Diclofenac Sodium (Diclofenac Sodium 1% Gel 100 Gm Tube) 4 gm TOPICAL QID YESSENIA Stop: 12/30/23 08:59 Last Admin: 12/30/22 08:20 Dose: 4 gm Docusate Sodium (Docusate 100 Mg Capsule) 100 mg PO BID YESSENIA Stop: 12/30/23 08:59 Last Admin: 12/30/22 08:20 Dose: 100 mg Ferric Sodium Gluconate Complex (Sodium Ferric Gluconat/Sucrose 62.5 Mg/5 Ml Vial) 125 mg IV-PUSH Mo@0900 [facility] Stop: 12/30/23 08:59 Last Admin: 12/30/22 10:03 Dose: 125 mg Furosemide (Furosemide 20 Mg Tablet) 60 mg PO BID@0800,1700 [facility] Stop: 12/30/23 08:59 Last Admin: 12/30/22 08:20 Dose: 60 mg Glucose (Dextrose 40% Gel 15 Gm Tube) 0.6 gm PO PRN PRN PRN Reason: Hypoglycemia Stop: 12/30/23 03:21 Glucose (Dextrose 40% Gel 15 Gm Tube) 0 gm PO PRN PRN PRN Reason: Hypoglycemia Stop: 12/30/23 03:22 Heparin Sodium (Porcine) (Heparin 10,000 Unit/10 Ml Vial) 2,000 unit IV PRN PRN PRN Reason: Dialysis Stop: 12/30/23 08:28 Last Admin: 12/30/22 10:02 Dose: 2,000 unit Heparin Sodium (Porcine) (Heparin 10,000 Unit/10 Ml Vial) 1,000 unit IV PRN PRN PRN Reason: Dialysis Stop: 12/30/23 08:28 Last Admin: 12/30/22 10:02 Dose: 1,000 unit Sodium Chloride (0.9% Sodium Chloride 1,000 Ml) 1,000 mls @ 0 mls/hr MISCELLANE.Q0M PRN PRN Reason: Dialysis Stop: 12/30/23 08:28 Last Infusion: 12/30/22 10:05 Dose: Infused Insulin Aspart (Insulin Aspart 300 Units/3 Ml Insuln.Pen) 0 units SUBCUT TID.WM.HS [facility]; Protocol Stop: 12/30/23 07:59 Last Admin: 12/30/22 11:35 Dose: 2 units Midodrine (Midodrine 5 Mg Tablet) 5 mg PO TID.7A.12P.5P PRN PRN Reason: Hypotension Stop: 12/30/23 03:21 Multivitamins (Multivitamin 1 Tab Tablet) 1 tab PO DAILY [facility] Stop: 12/30/23 08:59 Last Admin: 12/30/22 08:20 Dose: 1 tab Oxycodone/Acetaminophen (Oxycodone/Acetaminophen 5-325 Mg Tablet) 1 tab PO [id number] PRN Reason: Pain Pantoprazole Sodium (Pantoprazole 40 Mg Tablet.) 40 mg PO DAILY [facility] Stop: 12/30/23 08:59 Last Admin: 12/30/22 08:20 Dose: 40 mg Pramipexole Dihydrochloride (Pramipexole 0.5 Mg Tablet) 0.5 mg PO QHS [facility] Stop: 12/30/23 21:59 Saliva Substitute (Saliva Stimulant Agents Comb.3 44.3 Ml [place]) 0 ml MUCOUS MEM PRN PRN PRN Reason: Dry Mouth Stop: 12/30/23 02:58 Sennosides (Sennosides 8.6 Mg Tablet) 2 tab PO QHS [facility] Stop: 12/30/23 21:59 Sodium Chloride (Sodium Chloride 0.9 % 10 Ml Syringe) 0 ml IV-PUSH PRN PRN PRN Reason: Flush Stop: 12/29/23 22:02 Last Admin: 12/30/22 10:03 Dose: 10 ml Sodium Chloride (Sodium Chloride 0.9 % 10 Ml Syringe) 0 ml IV-PUSH QSHIFT [facility] Stop: 12/30/23 05:59 Last Admin: 12/30/22 06:29 Dose: 10 ml Sodium Chloride (Sodium Chloride 0.9 % 10 Ml Syringe) 0 ml IV-PUSH PRN PRN PRN Reason: Flush Stop: 12/30/23 08:28 Vitamin D (Cholecalciferol 25 Mcg (1,000 Units) Tablet) 25 mcg PO DAILY [facility] Stop: 12/30/23 08:59 Last Admin: 12/30/22 08:20 Dose: 25 mcg Exam Physical Exam Vital Signs: Temp Pulse Resp BP Pulse Ox O2 Del Method O2 Flow Rate 36.3 C L 54 L 29 H 113/68 93 L Nasal Cannula 3 12/30/22 09:20 12/30/22 12:01 12/30/22 11:00 12/30/22 12:01 12/30/22 11:00 12/30/22 11:00 12/30/22 11:00 Narrative: Constitutional: Up in the bed, awake with no respiratory distress. HEENT: She has mild pallor. Mucous membranes are moist. Cardiovascular: RRR, normal S1-S2, no gallop or rub, No JVD Respiratory: Diminished breath sounds. No crackles or wheezes. Gastrointestinal: Soft, non tender, positive bowel sounds. No palpable organs or masses Extremities: 1+ edema Skin: No rashes or bruises Musculoskeletal: Left shoulder tenderness. No swellings or inflammation Neurology: Awake, alert, oriented ?3, No focal motor or sensory deficits. Psych: Normal mood and affect Vascular access: Left arm AV fistula with good thrill. Results Labs 12/30/22 06:45 12/30/22 06:45 Labs: 12/29/22 12/30/22 22:20 06:45 BUN 76 H 81 H Creatinine 4.76 H 5.26 H D Iron Saturation 19.4 L Albumin 3.2 L 3.0 L Radiology Impressions Impressions - last 24 hours: Impressions Chest X-Ray 12/29/22 22:06 IMPRESSION: NO SIGNIFICANT CHANGE IN CHEST FINDINGS COMPARED TO THE 12/13/2022 STUDY. Impression dictated by: Quintin Matamoros Jr., D.O.12/30/2022 9:27 AM Dictation Location: [facility]12 Abdomen X-Ray 12/30/22 02:49 IMPRESSION: MODERATE STOOL BURDEN IS SEEN INVOLVING THE LEFT COLON WITH GASEOUS DISTENTION OF PRESUMED RIGHT-SIDED COLONIC LOOPS. FINDINGS MAY RELATE TO CONSTIPATION. IF UNDERLYING OBSTRUCTION IS OF CLINICAL CONCERN, FURTHER EVALUATION WITH CT IS RECOMMENDED. Impression dictated by: Quintin Matamoros Jr., D.O.12/30/2022 9:28 AM Dictation Location: [facility] Liver Ultrasound 12/30/22 03:00 IMPRESSION: NO ACUTE PROCESS. . Impression dictated by: Quintin Matamoros Jr., D.O.12/30/2022 10:31 AM Dictation Location: [place] [address] Any impression(s) listed above is documentation that was entered by the reading physician into a diagnostic report(s) for Cinthya Wilson. I have reviewed the report(s) and am incorporating any findings in the treatment plan of this patient where applicable. 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 She gets dialysis admitted for dialysis unit on MWF schedule. Patient had PD for short time 2019 for DAVID on top of CKD and cardiorenal syndrome however renal function did recover. (2) Anemia of renal disease: Assessment/Problem Details: Hemoglobin did drop with no obvious bleeding. She has adequate iron stores however transferrin saturation below 20%. (3) Type 2 diabetes mellitus with diabetic chronic kidney disease: Assessment/Problem Details: She has insulin-dependent type 2 diabetes mellitus. (4) Benign hypertension with end-stage renal disease: Assessment/Problem Details: Blood pressure did improve on dialysis and possibly progression of underlying CAD/CHF. He is appears to be a euvolemic however respiratory rate 30 and she has elevated BNP that seems to be chronic.. She occasionally takes midodrine with dialysis (5) Secondary hyperparathyroidism: Assessment/Problem Details: She has a secondary hyperparathyroidism due to the ESRD and hyperphosphatemia. Currently take calcium acetate at home. (6) Pain in joints: Assessment/Problem Details: Patient has generalized bone and joints pain. She is currently on oxycodone with intermittent confusion. Patient has a history of polymyalgia and she has aprevious back surgery. Plan * Hemodialysis today per chronic orders for 4 hours, 2K bath. We will try 2.5 L ultrafiltration as tolerated. Patient on low-dose heparin 2000/1000. She has normal INR and she is not on anticoagulation. * Patient on Aranesp with hemodialysis weekly for anemia. We will increase the dose to 80 mcg weekly. Considering the borderline concerning saturation less than 20%, will add ferric sodium gluconate 125 mcg weekly with dialysis. * All medications reviewed. Patient not on beta-blockers or amiodarone anymore. Cardiology will evaluate she may need pacemaker at this point considering the recurrent bradycardia suggestive of sick sinus syndrome. Patient has mild confusion with possibly excessive narcotics. Considering history of polymyalgia low-dose prednisone or even nonsteroidal anti-inflammatory drugs can be tried to decrease the need for narcotics. * Monitor daily intake and output and renal panel. We will adjust medications and dialysis prescriptions accordingly. I appreciate this consultation we will be happy to follow the patient with you during hospital stay. Documented By: Narinder Toussaint MD 12/30/22 1223 Signed By: <Electronically signed by MD Narinder Toussaint> 12/30/22 5554 [facility] Work Phone: Consult note Author Edie Michel [facility] December 30, 2022 8:49pm Note Date/Time December 30, 2022 8:37pm [facility] [address] [place] [address] Cardiology Consult Note Signed Patient: Cinthya Wilson MR#: [id number] : 1945 Acct:[id number] Age/Sex: 77 / F Adm Date: 3 Loc: Room: [address] [place] [address] Type: ADM IN Attending Dr: Tatiana Loya MD Copies to: MD Lily Duran II, MD Linda Njoroge, MD~ Cardiology HPI History of Present Illness Consult Date: 12/30/22 Reason for Consult: Bradycardia and history of VT HPI: Ms. Wilson is a 77 year old female with PMH significant for CAD status post PCI x1 about 10 years ago in [place], ESRD on HD, hypertension, hyperlipidemia, CHF, COPD on 3 L nasal cannula who has had 2 recent admissions for syncope and nonsustained VT. During the last visit she was discharged home on amiodarone load for VT and with a 30-day event monitor. She presents again with severe weakness and lethargy associated with shortness of breath. She was found to be febrile in the ED with temperature 100.6. She was also noted to be bradycardic in the 40s. EKG showed sinus bradycardia with first- degree AV block. Labs also significant for hemoglobin of 8.8. Blood cultures were drawn. Amiodarone was held due to bradycardia. Patient reports taking amiodarone 400 mg twice daily for 2 weeks and was down tothe 200 mg daily dose. She denies palpitations or syncope prior to presentation. She has completed her event monitor and she states that the monitor is physically at home. Review of Systems Review of Systems All other systems reviewed & are negative unless noted below or in HPI [facility] Medical History Anemia Anxiety Anxiety and depression Arthritis AV fistula left CAD (coronary artery disease) Cataract had bilateral PHACO Cervical spinal stenosis CHF (congestive heart failure) Chronic back pain Chronic kidney disease COPD (chronic obstructive pulmonary disease) Diabetes ESRD (end stage renal disease) GERD (gastroesophageal reflux disease) HTN (hypertension) Hyperlipidemia Insomnia Irregular heart rhythm prior to stent placement per pt report Lumbosacral spondylolysis LVH (left ventricular hypertrophy) Neck pain with history of cervical spinal surgery Neuropathy right thigh and feet Pneumonia Polymyalgia Skin cancer mohs procedure for removal Sleep apnea Surgical History H/O heart artery stent History of appendectomy History of back surgery lumbar History of x2 History of carpal tunnel release bilateral History of coronary angioplasty with insertion of stent History of D&C History of shoulder surgery rt shoulder History of tonsillectomy History of total abdominal hysterectomy and bilateral salpingo-oophorectomy Family History Father Heart disease Cancer Mother Cancer Diabetes Social History Smoking Status: Never smoker Substance Use Type: None Social History Comments: adult son Meds Medications and Allergies Allergies lisinopril Allergy (Verified 12/06/22 18:31) Cough Home Medications atorvastatin 40 mg tablet 40 mg PO QPM 11/19/16 [History Confirmed 12/29/22] multivitamin 1 tab PO DAILY 09/07/19 [History Confirmed 12/29/22] aspirin 81 mg tablet,delayed release 81 mg PO DAILY 11/25/19 [History Confirmed 12/29/22] cholecalciferol (vitamin D3) 25 mcg (1,000 unit) tablet (Vitamin D3) 25 mcg PO DAILY 11/25/19 [History Confirmed 12/29/22] citalopram 40 mg tablet 40 mg PO DAILY 11/25/19 [History Confirmed 12/29/22] albuterol sulfate 0.63 mg/3 mL solution for nebulization 0.63 mg inhalation QID PRN SOB 06/26/21 [History Confirmed 12/29/22] dextrose 40 % oral gel (Glutose-15) 0.6 g PO PRN PRN Hypoglycemia #112.5 grams 11/20/21 [Rx Confirmed 12/29/22] docusate sodium 100 mg capsule 100 mg PO BID #60 caps 11/20/21 [Rx Confirmed 12/29/22] insulin aspart U-100 100 unit/mL (3 mL) subcutaneous pen (Novolog FlexPen U-100 Insulin aspart) 1 sliding scale dose subcut TID.WM.HS #15 mL 11/20/21 [Rx Confirmed 12/29/22] pen needle, diabetic 32 gauge x 5/32 (BD Ultra-Fine Lexis Pen Needle) #100 ea 11/20/21 [Rx Confirmed 12/13/22] calcium acetate(phosphat bind) 667 mg capsule 667 mg PO TID.WITH.MEALS 60 days #240 caps 02/26/22 [Rx Confirmed 12/29/22] pantoprazole 40 mg tablet,delayed release 40 mg PO DAILY 05/17/22 [History Confirmed 12/29/22] diclofenac sodium 1 % topical gel (Voltaren Arthritis Pain) 4 g topical QID #0 grams 10/31/22 [Rx Confirmed 12/29/22] furosemide 20 mg tablet 60 mg PO BID 30 days #180 tabs 10/31/22 [Rx Confirmed 12/29/22] fluticasone fur. 100 mcg-umeclid 62.5 mcg-vilant 25 mcg inhalat.powder (Trelegy Ellipta) 1 ea inhalation DAILY 12/06/22 [History Confirmed 12/29/22] oxycodone-acetaminophen 5 mg-325 mg tablet 1 tab PO Q4-6H PRN Pain 12/06/22 [History Confirmed 12/29/22] pramipexole 0.5 mg tablet 0.5 mg PO HS 12/06/22 [History Confirmed 12/29/22] midodrine 5 mg tablet 5 mg PO TID PRN Hypotension 12/07/22 [History Confirmed 12/29/22] darbepoetin theodore in polysorbat 60 mcg/mL in polysorbate injection (Aranesp) mcg 12/29/22 [History] fluticasone fur. 100 mcg-umeclid 62.5 mcg-vilant 25 mcg inhalat.powder (Trelegy Ellipta) inhalation 12/29/22 [History] insulin lispro 100 unit/mL subcutaneous pen (Humalog KwikPen (U-100) Insulin) subcut 12/29/22 [History] ondansetron 4 mg disintegrating tablet 4 mg PO Q6H PRN Nausea 12/29/22 [History Confirmed 12/29/22] pramipexole 0.5 mg tablet (Mirapex) 0.5 mg PO QHS 12/29/22 [History Confirmed 12/29/22] amiodarone 200 mg tablet 200 mg PO DAILY 12/30/22 [History Confirmed 12/30/22] Exam Physical Exam Vital Signs: Temp Pulse Resp BP Pulse Ox O2 Del Method O2 Flow Rate 98.7 F 66 25 H 119/58 L 98 Nasal Cannula 3 12/30/22 17:00 12/30/22 19:00 12/30/22 19:00 12/30/22 19:00 12/30/22 17:00 12/30/22 19:00 12/30/22 19:00 Narrative: GEN: AAOx3. Chronically ill-appearing, lethargic. Neck: No JVD. Lungs: Clear to auscultation bilaterally Heart: Regular rate, bradycardic. Normal S1 and S2. No murmurs or rubs appreciated. Abdomen: Soft, nontender, nondistended, bowel sounds present. Extremities: No BLE edema. Neuro: AAOx3. No focal deficits. Results Labs 12/30/22 06:45 12/30/22 06:45 Lab results: Cardiac Enzymes 12/29/22 12/29/22 12/30/22 Range/Units 22:20 22:20 06:45 AST 21 19 (13-39) U/L B-Natriuretic Peptide 1358.0 H (5-100) pg/mL CBC 12/29/22 12/30/22 Range/Units 22:20 06:45 RBC 3.10 L 3.02 L (3.60-5.00) X10E6/uL Hgb 8.8 L 8.5 L (11.8-15.4) g/dL Hct 27.8 L 27.0 L (34.0-46.4) % Plt Count 397 386 (150-450) x10E3/uL Neut # (Auto) 6.9 6.2 (1.8-7.7) x10E3/uL Lymph # (Auto) 1.2 1.1 (1.00-4.8) x10E3/uL [place]henry # (Auto) 1.3 H 1.2 H (0.0-0.8) x10E3/uL Eos # (Auto) 0.1 0.1 (0.0-0.45) x10E3/uL Baso # (Auto) 0.0 0.0 (0.0-0.2) x10E3/uL Comprehensive Metabolic Panel 12/29/22 12/30/22 Range/Units 22:20 06:45 Sodium 126 L 126 L (136-145) mmol/L Potassium 4.2 4.4 (3.5-5.1) mmol/L Chloride 86 L 88 L (98-107) mmol/L Carbon Dioxide 25.8 25.0 (21.0-31.0) mmol/L BUN 76 H 81 H (7-25) mg/dL Creatinine 4.76 H 5.26 H D (0.60-1.20) mg/dL Glucose 144 H 146 H (70-100) mg/dL Calcium 10.2 9.9 (8.6-10.3) mg/dL AST 21 19 (13-39) U/L ALT 26 23 (7-52) U/L Alkaline Phosphatase 146 H 159 H (34-104) U/L Total Protein 6.9 6.0 L (6.4-8.9) gm/dL Albumin 3.2 L 3.0 L (3.5-5.7) gm/dL Intake and Output 12/30/22 12/30/22 12/30/22 07:59 15:59 23:59 Intake Total 860 / 860 Output Total 2503 / 2503 Balance -1643 / -1643 Intake: IV 500 / 500 Sodium Chloride 0.9% 1,000 ml 1 500 / 500 ,000 ml @ As Directed MISCELLANE .Q0M PRN Rx#: [id number] Oral 360 / 360 Output: Urine 0 / 0 Dialysis Output 2503 / 2503 Other: # Bowel Movements 1 Weight 63.4 kg Date of Last Bowel Movement 12/27/22 12/30/22 12/30/22 Patient Weight 12/30/22 23:59 Weight 63.4 kg Lab 12/29/22 22:20 PT 12.2 INR 1.0 APTT 27.1 A&P - Cardiology (1) Symptomatic bradycardia: Code(s): R00.1 - Bradycardia, unspecified (2) Generalized weakness: Code(s): R53.1 - Weakness (3) Fever: Code(s): R50.9 - Fever, unspecified (4) Pain in joints: Code(s): M25.50 - Pain in unspecified joint (5) ESRD (end stage renal disease): Code(s): N18.6 - End stage renal disease Plan Ms. Wilson is a 77 year old female with PMH significant for CAD status post PCI x1 about 10 years ago in [place], ESRD on HD, hypertension, hyperlipidemia, CHF, COPD on 3 L nasal cannula who has had 2 recent admissions for syncope and nonsustained VT. During the last visit she was discharged home on amiodarone load for VT and with a 30-day event monitor. She presents again with severe weakness and lethargy associated with shortness of breath. She was found to be febrile in the ED with temperature 100.6. She was also noted to be bradycardic in the 40s. EKG showed sinus bradycardia with first- degree AV block. Labs also significant for hemoglobin of 8.8. Blood cultures were drawn. Amiodarone was held due to bradycardia. Patient reports taking amiodarone 400 mg twice daily for 2 weeks and was down tothe 200 mg daily dose. She denies palpitations or syncope prior to presentation. She has completed her event monitor and she states that the monitor is physically at home. Assessment: Weakness and fatigue Possible Sepsis Anemia Sinus bradycardia Hx of Nonsustained VT ESRD on HD CAD status post PCI Hypertension Hyperlipidemia Recommendations: - Advised pt to have family drop off the event monitor to cardiac diagnostics for evaluation of heart rhythm while at home. - Will resume amiodarone 200mg daily - Avoid AVN blockers in the setting of bradycardia - Recent ECHO showed EF 50-55% with mild to moderate - Continue telemetry monitoring. - Will follow. Documented By: Edie Michel MD 12/30/22 1235 Signed By: <Electronically signed by Edie Michel MD> 12/30/222048 [facility] Work Phone: Discharge summary Author Carlton Mtz [facility] October 31, 2022 7:44pm Note Date/Time October 31, 2022 3:04pm [facility] [address] [place] [address] Discharge Summary Signed Patient: Cinthya Wilson MR#: [id number] : 1945 Acct:[id number] Age/Sex: 77 / F Adm Date: 3 Loc: Room: [address] [place] [address]: Carlton Mtz DO Copies to: MD Carlton Bourgeois II, ~ Providers Date of Discharge: 10/31/22 Discharging Provider: Carlton Mtz Primary Care Provider: Lily Aldrich Consults: 10/29/22 23:56 Consult to Nephrology Routine Consult to Case Management Routine Consult to Occupational Therapy Routine Consult to Physical Therapy Routine 10/30/22 04:07 Consult to Cardiology Routine 10/30/22 07:47 Consult to Cardiology Routine Discharge Diagnosis (1) Nonsustained ventricular tachycardia: (2) Fall: (3) ESRD (end stage renal disease): (4) Diabetes: (5) COPD (chronic obstructive pulmonary disease): (6) HTN (hypertension): (7) Shoulder pain, bilateral: (8) ESRD on dialysis: (9) CAD (coronary artery disease): Final Diagnosis Final Discharge Diagnosis: Multiple rounds of nonsustained ventricular tachycardia associated with hypotension. Coronary artery disease with PCI to 1 vessel about 10 years ago in [place]. Acute on chronic combined systolic and diastolic congestive heart failure, NYHA class II. End-stage renal disease on maintenance hemodialysis. Development of recent hypotension. Mechanical fall at home exacerbating chronic pain to both shoulders. Summary Hospital Course Hospital course: This is a 77-year-old woman who presented emergency room primarily because she had suffered a mechanical fall at home. She had pain to both of her shoulders. She has a history of a lot of pain to both shoulders and one of them has been replaced so she lives with daily pain in her shoulders but after her fall the pain was much worse. As part of her work-up the emergency room she was placed on telemetry monitoring. She was found to have multiple runs of nonsustained ventricular tachycardia. She was also hypotensive. She is known to be a hemodialysis patient. She was admitted to the hospital on an amiodarone infusion. Nephrology was consulted. The patient did undergo hemodialysis. At first her home blood pressure medications were all placed on hold while the amiodarone infusion completed. She had cardiology consultation by Edie Michel. After the amiodarone infusionhad completed the patient was initiated on low-dose carvedilol at 3.125 mg p.o. twice daily. The patient normally does follow with [facility] cardiologists and records were reviewed from there that shows she has an ejection fraction 45% with mildly dilated left ventricle and mild global hypokinesis, on an echocardiogram done from July 2022. One of the patient's home medications is valsartan. Given hypotension this was held. Nephrology wishes to continue the Lasix. She seems to be hemodynamically stable on this regimen and so she was found to be suitable for discharge to home. Condition Condition at Discharge: Stable Status at Discharge Functional status at discharge: uses cane/walker Overall status at discharge: patient is progressing back to baseline Time Spent with Patient Time spent providing/coordinating discharge services (# min): 7 Diagnostic Studies Completed and Pending Studies Labs on day of discharge: 10/31/22 11:26: POC Glucose 223 10/31/22 07:50: POC Glucose 134 10/31/22 04:45: PHA Creatinine Clear 14.57, Sodium 130 L, Potassium 3.9, Chloride 91 L, Carbon Dioxide 29.9, Anion Gap 13.0, BUN 32 H D, Creatinine 2.88 H D, Est GFR (CKD-EPI) 16.510, Glucose 147 H, Calcium 9.3 10/31/22 04:45: Corrected WBC 5.4, Uncorrected WBC Count 5.4, RBC 3.25 L, Hgb 9.7 L, Hct 30.1 L, MCV 92.4, MCH 29.8, MCHC 32.3, RDW 16.4 H, Plt Count 300, MPV7.6, Neut % (Auto) 61.2, Lymph % (Auto) 19.6, Mchenry % (Auto) 13.8, Eos % (Auto) 4.7, Baso % (Auto) 0.7, Nucleat RBC Rel Count 0.0, Neut # (Auto) 3.3, Lymph # (Auto) 1.1, Mchenry # (Auto) 0.7, Eos # (Auto) 0.3, Baso # (Auto) 0.0 10/30/22 21:54: POC Glucose 181, POC Glucose Comment Glu2: cleaned meter 10/30/22 16:43: POC Glucose 139 Exam Physical Exam Vital Signs: Temp Pulse Resp BP Pulse Ox O2 Del Method O2 Flow Rate 97.7 F 70 20 94/51 L 97 Nasal Cannula 3 10/31/22 11:13 10/31/22 11:47 10/31/22 11:47 10/31/22 11:13 10/31/22 11:13 10/31/22 11:13 10/31/22 11:13 Discharge Plan Discharge Plan Patient Disposition: Home Health [facility] Activity: No Activity Restriction Diet: Diabetic Additional Instructions: Please call to schedule an appointment with your established dental office receptionist. Continue Hemodialysis as scheduled. Continue to use home oxygen as directed. Please weigh yourself daily. Keep a record of these to take to your Dr. appointments. HOME HEALTH TO MANAGE: Nursing/PT/OT to eval and treat Monitor VS per protocol--HTN Monitor Cardiac assessment--V tach, CAD Monitor Respiratory assessment--COPD Monitor assessment--ESRD Monitor bilateral shoulder pain Maintain home oxygen at 3l continuous Assist with medication management and provide medication education Provide education on high risk fall precautions Prescriptions: New diclofenac sodium [Voltaren Arthritis Pain] 1 % Gel 4 g topical QID Qty: 0 0RF carvedilol 3.125 mg Tablet 3.125 mg PO BID.WITH.MEALS 30 Days Qty: 60 0RF furosemide 20 mg tablet 60 mg PO BID 30 Days Qty: 180 0RF Rx Instructions: Take twice a day with meals, at least 6 hours apart. Further refills or adjustments per Nephrology. Continued multivitamin Tablet 1 tab PO DAILY dextrose [Glutose-15] 40 % Gel 0.6 g PO PRN PRN (Reason: Hypoglycemia) Qty: 112.5 0RF docusate sodium 100 mg Capsule 100 mg PO BID Qty: 60 0RF insulin aspart U-100 [Novolog FlexPen U-100 Insulin] 100 unit/mL (3 mL) Insulin Pen 1 sliding scale dose subcut TID.WM.HS Qty: 15 0RF (DME) pen needle, diabetic [BD Ultra-Fine Lexis Pen Needle] 32 gauge x 5/32 needle Qty: 100 0RF Rx Instructions: As Directed - FSBS AC/HS calcium acetate(phosphat bind) 667 mg Capsule 667 mg PO TID.WITH.MEALS 60 Days Qty: 240 0RF hydrocodone-acetaminophen 7.5-325 mg tablet 1 tab PO Q6H PRN (Reason: Pain) 2 Days Qty: 8 0RF sennosides [senna] 8.6 mg tablet 8.6 mg PO BID Patient Comments: TAKE 1 TABLET BY MOUTH TWICE DAILY HOLD FOR LOOSE STOOLS pantoprazole 40 mg tablet,delayed release (DR/EC) 40 mg PO DAILY Patient Comments: TAKE 1 TABLET BY MOUTH EVERY DAY midodrine 5 mg Tablet 5 mg PO TID PRN (Reason: pre hd ) atorvastatin 40 mg tablet 40 mg PO QPM Patient Comments: Rx Instructions: 1 tablet PO daily citalopram 40 mg tablet 40 mg PO DAILY aspirin 81 mg Tablet,Delayed Release (Dr/Ec) 81 mg PO DAILY Hold Instructions: resume in 2 days if no further bleeding noted. Anoro Ellipta 62.5-25 mcg/actuation blister with device 1 inh INHALATION DAILY Patient Comments: INHALE 1 PUFF ONCE A DAY cholecalciferol (vitamin D3) [Vitamin D3] 25 mcg (1,000 unit) Tablet 25 mcg PO DAILY albuterol sulfate 0.63 mg/3 mL Solution For Nebulization 0.63 mg inhalation QID PRN (Reason: SOB) Discontinued furosemide 40 mg Tablet 60 mg PO BID Qty: 60 3RF Rx Instructions: 1 TABLET PO DAILY valsartan 160 mg tablet 160 mg PO DAILY carvedilol 12.5 mg tablet 12.5 mg PO BID amoxicillin-pot clavulanate 500-125 mg tablet 1 tab PO TID Patient Comments: TAKE 1 TABLET BY MOUTH THREE TIMES DAILY Other Ambulatory Orders: Initiate Home Health (Routine) Timeframe: [id number] Location: Determined by Patient Ordered By: Carlton Mtz Follow Up: Lily Aldrich II, MD [Primary Care Provider] - (Please call to schedule a 7 daypost hospital appointment.) Documented By: Carlton Mtz DO [id number] Signed By: <Electronically signed by Carlton Mtz DO> 10/31/22 312 [facility] Work Phone: Evaluation + Plan note No data available for this section [facility] Future Appointments Appointment Date:03/04/2023 01:00:00 PM Scheduled Provider:Julius Elizondo DPM Location[facility] Appointment Type:WC [facility] Future Appointments Appointment Date:03/18/2023 01:30:00 PM Scheduled Provider:Julius Elizondo DPM Location:[facility] Appointment Type:WC [facility] assessment information available [facility] Work Phone: [email or web address] note* Diagnosis Onset Date Resolution Status Acute heart failure acute Acute hypoxemic respiratory failure acute Anemia acute Bilateral pleural effusion a cute CAD (coronary artery disease) acute Chronic kidney disease, stage 5 acute COPD (chronic obstructive pulmonary disease) acute Diabetes acute Fluid overload acute HTN (hypertension) acute Hyponatremia acute Primary hypertension acute Recurrent right pleural effusion acute Right shoulder pain acute Sleep apnea acute [facility] Work Phone: Evaluation note* Diagnosis Onset Date Resolution Status Acute hypoxemic respiratory failure acute DAVID (acute kidney injury) ac andreafski Anemia acute COPD (chronic obstructive pulmonary disease) acute Diabetes acute Elevated troponin acute HTN (hypertension) acute Systolic and diastolic CHF, acute on chronic acute UTI (urinary tract infection) acute [facility] Work Phone: Evaluation note* Diagnosis Onset Date Resolution Status Acute hypoxemic respiratory failure acute DAVID (acute kidney injury) ac andreafski Anemia acute COPD (chronic obstructive pulmonary disease) acute Diabetes acute Elevated troponin acute ESRD (end stage renal disease) acute HTN (hypertension) acute Primary hypertension acute Systolic and diastolic CHF, acute on chronic acute UTI (urinary tract infection) acute [facility] Work Phone: Evaluation [place]No [place] [employer] Other Evaluqcmuf note* Diagnosis Onset Date Resolution Status Acute hypoxemic respiratory failure acute DAVID (acute kidney injury) ac andreafski Anemia acute COPD (chronic obstructive pulmonary disease) acute Diabetes acute Elevated troponin acute ESRD (end stage renal disease) acute HTN (hypertension) acute Primary hypertension acute Systolic and diastolic CHF, acute on chronic acute UTI (urinary tract infection) acute Anemia acute Bright red rectal bleeding a cute Diabetes acute ESRD (end stage renal disease) acute Systolic and diastolic CHF, acute on chronic acute [facility] Work Phone: evaluation note* Diagnosis Onset Date Resolution Status CAD (coronary artery disease) acute COPD (chronic obstructive pulmonary disease) acute Diabetes acute ESRD (end stage renal disease) acute ESRD on dialysis acute Fall acute Fall at home acute HTN (hypertension) acute Hyponatremia acute Left shoulder pain acute Minor head injury acute Osteoarthritis of left shoulder acute Recurrent right pleural effusion acute [facility] Work Phone: Evaluation note* Diagnosis Onset Date Resolution Status Anemia acute CAD (coronary artery disease) acute COPD (chronic obstructive pulmonary disease) acute Diabetes acute ESRD (end stage renal disease) acute ESRD on dialysis acute Fall acute Fall at home acute HTN (hypertension) acute Hyponatremia acute Left shoulder pain acute Minor head injury acute Nonsustained ventricular tachycardia acute Osteoarthritis of left shoulder acute Recurrent right pleural effusion acute Shoulder pain, bilateral acu te Systolic and diastolic CHF, acute on chronic acute Acute electrocardiogram changes acute Head injury acute Syncopal episodes acute [facility] Work Phone: Evaluation note* Diagnosis Onset Date Resolution Status Anemia acute CAD (coronary artery disease) acute COPD (chronic obstructive pulmonary disease) acute Diabetes acute ESRD (end stage renal disease) acute ESRD on dialysis acute Fall acute Fall at home acute HTN (hypertension) acute Hyponatremia acute Left shoulder pain acute Minor head injury acute Nonsustained ventricular tachycardia acute Recurrent right pleural effusion acute Shoulder pain, bilateral acu te Systolic and diastolic CHF, acute on chronic acute Acute electrocardiogram changes acute Anemia of renal disease acut e Benign hypertension with end-stage renal disease acute CAD (coronary artery disease) acute Diabetes acute ESRD (end stage renal disease) acute ESRD on dialysis acute Head injury acute HTN (hypertension) acute Secondary hyperparathyroidism acute Syncope acute Type 2 diabetes mellitus wit h diabetic chronic kidney disease acute [facility] Work Phone: Evaluation note* Diagnosis Onset Date Resolution Status Anemia acute CAD (coronary artery disease) acute COPD (chronic obstructive pulmonary disease) acute Diabetes acute ESRD (end stage renal disease) acute ESRD on dialysis acute Fall acute Fall at home acute HTN (hypertension) acute Hyponatremia acute Left shoulder pain acute Minor head injury acute Nonsustained ventricular tachycardia acute Recurrent right pleural effusion acute Shoulder pain, bilateral acu te Systolic and diastolic CHF, acute on chronic acute Acute electrocardiogram changes acute Anemia of renal disease acut e Benign hypertension with end-stage renal disease acute CAD (coronary artery disease) acute Diabetes acute ESRD (end stage renal disease) acute ESRD on dialysis acute Head injury acute HTN (hypertension) acute Secondary hyperparathyroidism acute Syncope acute Type 2 diabetes mellitus wit h diabetic chronic kidney disease acute Anemia of renal disease acut e Benign hypertension with end-stage renal disease acute [place] acute CAD (coronary artery disease) acute Cardiomyopathy acute Chronic combined systolic an d diastolic CHF (congestive heart failure) acute COPD (chronic obstructive pulmonary disease) acute Diabetes mellitus with insulin therapy acute ESRD on dialysis acute HTN (hypertension) acute Nonsustained ventricular tachycardia acute Secondary hyperparathyroidism acute Syncope acute Type 2 diabetes mellitus wit h diabetic chronic kidney disease acute [facility] Work Phone: Evaluation note* Diagnosis Onset Date Resolution Status Anemia acute CAD (coronary artery disease) acute COPD (chronic obstructive pulmonary disease) acute Diabetes acute ESRD (end stage renal disease) acute ESRD on dialysis acute Fall acute Fall at home acute HTN (hypertension) acute Hyponatremia acute Left shoulder pain acute Minor head injury acute Nonsustained ventricular tachycardia acute Recurrent right pleural effusion acute Shoulder pain, bilateral acu te Systolic and diastolic CHF, acute on chronic acute Acute electrocardiogram changes acute Anemia of renal disease acut e Benign hypertension with end-stage renal disease acute CAD (coronary artery disease) acute Diabetes acute ESRD (end stage renal disease) acute ESRD on dialysis acute Head injury acute HTN (hypertension) acute Secondary hyperparathyroidism acute Syncope acute Type 2 diabetes mellitus wit h diabetic chronic kidney disease acute Anemia of renal disease acut e Benign hypertension with end-stage renal disease acute [place] acute CAD (coronary artery disease) acute Cardiomyopathy acute Chronic combined systolic an d diastolic CHF (congestive heart failure) acute COPD (chronic obstructive pulmonary disease) acute Diabetes mellitus with insulin therapy acute ESRD on dialysis acute HTN (hypertension) acute Nonsustained ventricular tachycardia acute Secondary hyperparathyroidism acute Syncope acute Type 2 diabetes mellitus wit h diabetic chronic kidney disease acute Anemia acute Anemia of renal disease acut e Benign hypertension with end-stage renal disease acute CAD (coronary artery disease) acute Chronic pleural effusion acu te COPD (chronic obstructive pulmonary disease) acute Diabetes acute ESRD (end stage renal disease) acute ESRD on dialysis acute Fever acute Generalized weakness acute Hyponatremia acute Pain in joints acute Recurrent right pleural effusion acute Secondary hyperparathyroidism acute Swollen tongue acute Symptomatic bradycardia acut e Type 2 diabetes mellitus wit h diabetic chronic kidney disease acute Weakness acute [facility] Work Phone: Evaluation note* Diagnosis Onset Date Resolution Status Acute electrocardiogram changes acute Anemia of renal disease acut e Benign hypertension with end-stage renal disease acute CAD (coronary artery disease) acute Diabetes acute ESRD (end stage renal disease) acute ESRD on dialysis acute Head injury acute HTN (hypertension) acute Secondary hyperparathyroidism acute Syncope acute Type 2 diabetes mellitus wit h diabetic chronic kidney disease acute Anemia of renal disease acut e Benign hypertension with end-stage renal disease acute [place] acute CAD (coronary artery disease) acute Cardiomyopathy acute Chronic combined systolic an d diastolic CHF (congestive heart failure) acute COPD (chronic obstructive pulmonary disease) acute Diabetes mellitus with insulin therapy acute ESRD on dialysis acute HTN (hypertension) acute Nonsustained ventricular tachycardia acute Secondary hyperparathyroidism acute Syncope acute Type 2 diabetes mellitus wit h diabetic chronic kidney disease acute Anemia acute Anemia of renal disease acut e Benign hypertension with end-stage renal disease acute CAD (coronary artery disease) acute Chronic pleural effusion acu te COPD (chronic obstructive pulmonary disease) acute Diabetes acute ESRD (end stage renal disease) acute ESRD on dialysis acute Fever acute Generalized weakness acute Hyponatremia acute Pain in joints acute Recurrent right pleural effusion acute Secondary hyperparathyroidism acute Swollen tongue acute Symptomatic bradycardia acut e Type 2 diabetes mellitus wit h diabetic chronic kidney disease acute Weakness acute [facility] Work Phone: Evaluation note* Diagnosis Onset Date Resolution Status Acute electrocardiogram changes acute Anemia of renal disease acut e Benign hypertension with end-stage renal disease acute CAD (coronary artery disease) acute Diabetes acute ESRD (end stage renal disease) acute ESRD on dialysis acute Head injury acute HTN (hypertension) acute Secondary hyperparathyroidism acute Syncope acute Type 2 diabetes mellitus wit h diabetic chronic kidney disease acute Anemia of renal disease acut e Benign hypertension with end-stage renal disease acute [place] acute CAD (coronary artery disease) acute Cardiomyopathy acute Chronic combined systolic an d diastolic CHF (congestive heart failure) acute COPD (chronic obstructive pulmonary disease) acute Diabetes mellitus with insulin therapy acute ESRD on dialysis acute HTN (hypertension) acute Nonsustained ventricular tachycardia acute Secondary hyperparathyroidism acute Syncope acute Type 2 diabetes mellitus wit h diabetic chronic kidney disease acute Anemia acute Anemia of renal disease acut e Benign hypertension with end-stage renal disease acute CAD (coronary artery disease) acute Chronic pleural effusion acu te COPD (chronic obstructive pulmonary disease) acute Diabetes acute ESRD (end stage renal disease) acute ESRD on dialysis acute Fever acute Generalized weakness acute Hyponatremia acute Pain in joints acute Recurrent right pleural effusion acute Secondary hyperparathyroidism acute Swollen tongue acute Symptomatic bradycardia acut e Type 2 diabetes mellitus wit h diabetic chronic kidney disease acute Weakness acute Anemia of renal disease acut e Chronic combined systolic an d diastolic CHF (congestive heart failure) acute COPD (chronic obstructive pulmonary disease) acute Diabetes mellitus with insulin therapy acute ESRD (end stage renal disease) acute Generalized weakness acute Hypokalemia acute Hyponatremia acute Hypotension acute Seizure-like activity acute Type 2 diabetes mellitus wit h diabetic chronic kidney disease acute [facility] Work Phone: Evaluation note* Diagnosis Onset Date Resolution Status Acute electrocardiogram changes acute Anemia of renal disease acut e Benign hypertension with end-stage renal disease acute CAD (coronary artery disease) acute Diabetes acute ESRD (end stage renal disease) acute ESRD on dialysis acute Head injury acute HTN (hypertension) acute Secondary hyperparathyroidism acute Syncope acute Type 2 diabetes mellitus wit h diabetic chronic kidney disease acute Anemia of renal disease acut e Benign hypertension with end-stage renal disease acute [place] acute CAD (coronary artery disease) acute Cardiomyopathy acute Chronic combined systolic an d diastolic CHF (congestive heart failure) acute COPD (chronic obstructive pulmonary disease) acute Diabetes mellitus with insulin therapy acute ESRD on dialysis acute HTN (hypertension) acute Nonsustained ventricular tachycardia acute Secondary hyperparathyroidism acute Syncope acute Type 2 diabetes mellitus wit h diabetic chronic kidney disease acute Anemia acute Anemia of renal disease acut e Benign hypertension with end-stage renal disease acute CAD (coronary artery disease) acute Chronic pleural effusion acu te COPD (chronic obstructive pulmonary disease) acute Diabetes acute ESRD (end stage renal disease) acute ESRD on dialysis acute Fever acute Generalized weakness acute Hyponatremia acute Pain in joints acute Recurrent right pleural effusion acute Secondary hyperparathyroidism acute Swollen tongue acute Symptomatic bradycardia acut e Type 2 diabetes mellitus wit h diabetic chronic kidney disease acute Weakness acute Anemia of renal disease acut e Benign hypertension with end-stage renal disease acute CAD (coronary artery disease) acute Chronic combined systolic an d diastolic CHF (congestive heart failure) acute COPD (chronic obstructive pulmonary disease) acute Diabetes mellitus with insulin therapy acute ESRD (end stage renal disease) acute ESRD on dialysis acute Generalized weakness acute Hypokalemia acute Hypomagnesemia acute Hyponatremia acute Hypotension acute Secondary hyperparathyroidism acute Seizure-like activity acute Syncope acute Type 2 diabetes mellitus wit h diabetic chronic kidney disease acute Ventricular tachycardia, sustained acute [facility] Work Phone: History and physical note Author Gary Almaguer [facility] February 22, 2022 11:26pm Note Date/Time February 22, 2022 9 :35pm [facility] [address] [place] [address] Hospitalist H&P Signed Patient: Cinthya Wilson MR#: [id number] : 1945 Acct:[id number] Age/Sex: 76 / F Adm Date: 3 Loc: 4N Room: 1W9183-4 Type: ADM IN Attending Dr: Gary Almaguer MD Copies to: MD Gary Bourgeois II, MD Paula G Smith, STOPER~ HPI DATE OF EXAMINATION: 02/22/22 CHIEF COMPLAINT: SOB, fluid overload, altered mental status HISTORY OF PRESENT ILLNESS: Ms. 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 Patient seen and evaluated in the emergency room, daughter at bedside. Patient is alertand oriented x3 at this time. She states that she has not been eating or sleeping well. She complains of abdominal distention with shortness of breath. She normally wears oxygen at 3 L nasal cannula at home, she denies turning up her oxygen. 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 She states that he scheduled her for a CAT scan on Friday and she is to follow-up with him next week. She states she has gained 5 pounds since Friday. She denies fever, chills, nausea and vomiting. She does complain of midsternal chest pain that radiates under her right breast, and shortness of breath. SPO2 is 100%, respirations are mildly labored. Audible wheezes noted when sitting up in bed. The daughter states the patient has been alert and oriented at home, however at times she stares off into space and her conversation does not make sense. ER work-up includes CBC with an H&H of 8.2/26. CMP with a sodium of 132, bypwas59.4, gap 18.6, BUN 126, creatinine 5.19, glucose 142. Troponin 82. BNP 3549. UA with leukocyte esterase, 10-19 WBCs, no bacteria seen?culture pending. Nasalswab negative for influenza and COVID. Chest x-ray shows bibasilar groundglass opacities, mild parenchymal changes and mild cardiomegaly. CT of the head showsatrophy and chronic microvascular changes, no acute intracranial abnormality. EKG sinus rhythm with a first-degree block. She will be admitted to the MedSurgtelemetry floor under the care of the hospitalist team for further evaluation and treatment Review of Systems Review of Systems Review of systems: A 10 point review of systems was obtained, negative unless noted in the HPI or below. PMFSH Vaccinated for COVID-19?: Yes Medical History Anemia Anxiety Anxiety and depression Arthritis CAD (coronary artery disease) Cataract had bilateral PHACO Cervical spinal stenosis CHF (congestive heart failure) Chronic back pain Chronic kidney disease COPD (chronic obstructive pulmonary disease) Diabetes GERD (gastroesophageal reflux disease) HTN (hypertension) Hyperlipidemia Insomnia Irregular heart rhythm prior to stent placement per pt report Lumbosacral spondylolysis LVH (left ventricular hypertrophy) Neck pain with history of cervical spinal surgery Neuropathy right thigh and feet Pneumonia Polymyalgia Skin cancer mohs procedure for removal Sleep apnea Surgical History H/O heart artery stent History of appendectomy History of back surgery lumbar History of x2 History of carpal tunnel release bilateral History of coronary angioplasty with insertion of stent History of D&C History of shoulder surgery rt shoulder History of tonsillectomy History of total abdominal hysterectomy and bilateral salpingo-oophorectomy Family History Father Heart disease Cancer Mother Cancer Diabetes Social History Smoking Status: Never smoker Substance Use Type: None Social History Comments: adult son Meds Medications and Allergies Allergies lisinopril Allergy (Verified 02/22/22 18:27) Cough Home Medications atorvastatin 40 mg tablet 40 mg PO QPM 11/19/16 [History Confirmed 02/22/22] hydralazine 50 mg tablet 50 mg PO TID 11/19/16 [History Confirmed 02/22/22] isosorbide mononitrate 60 mg tablet,extended release 24 hr 60 mg PO QAM 11/19/16[History Confirmed 02/22/22] multivitamin 1 tab PO DAILY 09/07/19 [History Confirmed 02/22/22] omeprazole 40 mg capsule,delayed release 40 mg PO DAILY 09/07/19 [History Confirmed 02/22/22] aspirin 81 mg tablet,delayed release 81 mg PO DAILY 11/25/19 [History Confirmed 02/22/22] carvedilol 3.125 mg tablet 12.5 mg PO BID 11/25/19 [History Confirmed 02/22/22] cholecalciferol (vitamin D3) 25 mcg (1,000 unit) tablet (Vitamin D3) 25 mcg PO DAILY 11/25/19 [History Confirmed 02/22/22] citalopram 40 mg tablet 40 mg PO DAILY 11/25/19 [History Confirmed 02/22/22] umeclidinium 62.5 mcg-vilanterol 25 mcg/actuation powdr for inhalation (Anoro Ellipta) 1 inh inhalation DAILY 11/25/19 [History Confirmed 02/22/22] albuterol sulfate 0.63 mg/3 mL solution for nebulization 0.63 mg inhalation QID PRN SOB 06/26/21 [History Confirmed 02/22/22] hydrocodone 7.5 mg-acetaminophen 325 mg tablet 1 tab PO Q6H PRN Pain 11/16/21 [History Confirmed 02/22/22] dextrose 40 % oral gel (Glutose-15) 0.6 g PO PRN PRN Hypoglycemia #112.5 grams 11/20/21 [Rx Confirmed 02/22/22] docusate sodium 100 mg capsule 100 mg PO BID #60 caps 11/20/21 [Rx Confirmed 02/22/22] furosemide 40 mg tablet 60 mg PO BID #60 tabs 11/20/21 [Rx Confirmed 02/22/22] insulin aspart U-100 100 unit/mL (3 mL) subcutaneous pen (Novolog FlexPen U-100 Insulin aspart) 1 sliding scale dose subcut TID.WM.HS #15 mL 11/20/21 [Rx Confirmed 02/22/22] losartan 25 mg tablet 25 mg PO DAILY #30 tabs 11/20/21 [Rx Confirmed 02/22/22] pen needle, diabetic 32 gauge x 5/32 (BD Ultra-Fine Lexis Pen Needle) #100 ea 11/20/21 [Rx Confirmed 02/22/22] Exam Physical Exam Vital Signs: Temp Pulse Resp BP Pulse Ox O2 Del Method O2 Flow Rate 98.3 F 71 24 155/69 H 100 Nasal Cannula 3 02/22/22 18:38 02/22/22 20:12 02/22/22 20:12 02/22/22 20:12 02/22/22 20:12 02/22/22 20:12 02/22/22 20:12 Narrative: CONST- Appears well -developed and well nourished. Obese HEAD - Normocephalic and atraumatic EENT-Sclera nonicteric, conjunctive are non-erythemic, moist oral mucosa, pharynx clear NECK-Supple, no cervical lymphadenopathy CARDIAC-normal rate, regular rhythm, S1 & S2. Murmur PULM-diminished to R posterior base, crackles bilateral anterior, audible wheezewith activity, 3L NC, no accessory muscle use, dry cough ABD - Softly distended, nontender EXTREM-no edema BLE calves, nontender SKIN- W/D good turgor MS- MAEX4 spontaneously with equal with equal strength NEURO- A&Ox3 speech clear and tongue midline, equal facial symmetry, no focal motor deficits PSYCH-Mood, affect, and behavior appropriate Results Lab Results Labs: Laboratory Last Values Corrected WBC 6.8 X10E3/uL (3.8-11.6) 02/22/22 19: Uncorrected WBC Count 6.8 x10E3/uL (3.8-11.6) 02/22/22 19: RBC 2.77 X10E6/uL (3.60-5.00) L 02/22/22 19:26 Hgb 8.2 g/dL (11.8-15.4) L 02/22/22 19: Hct 26.0 % (34.0-46.4) L 02/22/22 19: MCV 94.0 fl (80-100) 02/22/22 19: MCH 29.6 pg (24.7-34.3) 02/22/22 19: MCHC 31.5 g/dL (32.0-35.0) L 02/22/22 19: RDW 16.2 % (11.9-15.3) H 02/22/22 19: Plt Count 240 x10E3/uL (150-450) 02/22/22 19:26 MPV 7.6 fl (6.3-10.7) 02/22/22 19: Neut % (Auto) 71.8 % (.) 02/22/22 19: Lymph % (Auto) 12.3 % (.) 02/22/22 19: Mchenry % (Auto) 11.5 % (.) 02/22/22 19: Eos % (Auto) 3.7 % (.) 02/22/22: Baso % (Auto) 0.7 % (.) 02/22/22 19: Nucleat RBC Rel Count 0.1 /100 WBC (0-0.5) 02/22/22 19: Neut # (Auto) 4.9 x10E3/uL (1.8-7.7) 02/22/22: Lymph # (Auto) 0.8 x10E3/uL (1.00-4.8) L 02/22/22 19: Mchenry # (Auto) 0.8 x10E3/uL (0.0-0.8) 02/22/22 19: Eos # (Auto) 0.2 x10E3/uL (0.0-0.45) 02/22/22: Baso # (Auto) 0.0 x10E3/uL (0.0-0.2) 02/22/22: Monocyte Dist Width 18.44 % (0.00-20.00) 02/22/22 19: PT 15.6 Seconds (9.0-12.9) H 02/22/22 19: INR 1.4 02/22/22 19: APTT 36.0 Seconds (25.1-36.5) 02/22/22 19: PHA Creatinine Clear 9.34 02/22/22 19: Sodium 132 mmol/L (136-146) L 02/22/22 19: Potassium 5.0 mmol/L (3.5-5.1) 02/22/22: Chloride 100 mmol/L (95-114) 02/22/22 19: Carbon Dioxide 18.4 mmol/L (22.0-30.0) L 02/22/22: Anion Gap 18.6 mEq/L (6.0-15.0) H 02/22/22 19: BUN 126 mg/dL (9-23) H 02/22/22 19: Creatinine 5.19 mg/dL (0.44-1.03) H 02/22/22 19: Est GFR ( Amer) 10 mL/Min 02/22/22 19: Est GFR (Non-Af Amer) 8 mL/Min 02/22/22 19: Glucose 142 mg/dL (70-100) H 02/22/22 19: Calcium 9.4 mg/dL (8.2-10.2) 02/22/22 19: Total Creatine Kinase 54 U/L (22-269) 02/22/22: CK-MB (CK-2) 4.5 ng/mL (0.6-6.3) 02/22/22: CK-MB (CK-2) Rel Index 8.3 % (0.00-2.50) H 02/22/22: Troponin I High Sens 82 pg/mL (0-15) H* 02/22/22: B-Natriuretic Peptide 3549.0 pg/mL (5-100) H 02/22/22 19: Urine Color Yellow (Yellow) 02/22/22 19: Urine Appearance Clear (Clear) 02/22/22 19: Urine pH 5.0 (5.0-9.0) 02/22/22 19: Ur Specific [place] 1.015 (1.001-1.030) 02/22/22 19:08 Urine Protein 100 mg/dL (Negative) H 02/22/22 19: Urine Glucose (UA) Normal mg/dL (Normal) 02/22/22 19:08 Urine Ketones Negative (Negative) 02/22/22 19:08 Urine Occult Blood Negative (Negative) 02/22/22 19: Urine Nitrite Negative (Negative) 02/22/22 19: Urine Bilirubin Negative (Negative) 02/22/22 19: Urine Urobilinogen Normal mg/dL (Normal) 02/22/22 19:08 Ur Leukocyte Esterase 2+ (Negative) H 02/22/22 19:08 Urine RBC 0-1 /HPF (0-4) 02/22/22 19:08 Urine WBC 10-19 /HPF (0-4) H 02/22/22 19:08 Ur Squamous Epith Cells 3-4 /HPF (0-2) H 02/22/22 19:08 Urine Bacteria None seen (None Seen) 02/22/22 19:08 Hyaline Casts 0-8 /LPF (0-8) 02/22/22 19:08 Urine Yeast None seen /HPF (None Seen) 02/22/22 19:08 SARS-CoV-2 Rap RNA(RT-PCR) Negative (Negative) 02/22/22 19:26 Microbiology Results Micro: Microbiology - Results from entire visit 02/22/22 19:26 Nasopharyngeal SARS-CoV-2, Influenza & RSV (PCR) - Final A&P - Hospitalist Assessment/Plan (1) Acute hypoxemic respiratory failure: (2) DAVID (acute kidney injury): (3) Systolic and diastolic CHF, acute on chronic: (4) UTI (urinary tract infection): (5) Anemia: (6) HTN (hypertension): (7) Diabetes: (8) COPD (chronic obstructive pulmonary disease): Plan Acute hypoxemic respiratory failure Acute on chronic combined heart failure Bilateral pleural effusion Elevated troponin ? Telemetry ? Oxygen as needed?keep SPO2 greater than 90% ? Furosemide IV twice daily ? Hobson catheter for accurate I&O ? Trend troponin ? Resume home meds?isosorbide mononitrate, hold ARB Acute kidney injury superimposed on CKD stage IV UTI?culture pending, continue ceftriaxone from ER - Patient has left UE fistula ? Nephrology consult for the possible need of dialysis ? Monitor kidney function Chronic conditions Anemia of chronic disease? Monitor H&H HTN?monitor, resume home meds?carvedilol, hydralazine COPD?Anoro Ellipta, nebulizers as needed GERD?resume home meds?omeprazole DVT PPx?SCDs, heparin CODE STATUS?DNR CCA without intubation as discussed with patient and daughter atbedside Attending Physician Attestation: I personally reviewed the history, performed the chow elements of the exam, formulated the plan of care and confirmed the written note. I agree with the findings and plan as documented in this note and have edited it if needed to reflect my findings and plan. Gary Strange MD Documented By: Malika Arreaga, NELI 02/22/222130 Signed By: <Electronically signed by NELI Arreaga> 02/22/22 2302 <Electronically signed by Gary Almaguer MD> 02/22/22 2326 [facility] Work Phone: History and physical note Author Gary Almaguer [facility] October 30, 2022 12:06am Note Date/Time October 29, 2022 11:31pm [facility] [address] [place] [address] Hospitalist H&P Signed Patient: Cinthya Wilson MR#: [id number] : 1945 Acct:[id number] Age/Sex: 77 / F Adm Date: 3 Loc: Room: [address] [place] [address] Type: ADM INOo Attending Dr: Gary Almaguer MD Copies to: MD Gary Bourgeois II, MD Paula G Smith, NELI~ HPI DATE OF EXAMINATION: 10/29/22 CHIEF COMPLAINT: mechanical fall HISTORY OF PRESENT ILLNESS: Ms. Wilson is a 77-year-old female with a PMH of ESRD on HD, HTN, CHF, COPD on 3L nasal cannula at all times at home, GERD, HLD that presents to the emergency room tonight for left shoulder pain after a fall yesterday. Patient seen and evaluated emergency room, resting on the cart quietly, daughter at bedside. Patient reports she has 2 steps to go into her foyer and yesterday the wheels onher rollator got stuck and she flipped over the walker and hit both steps on theway down. She reports hitting her head, denies losing consciousness. Denies dizziness, chest pain, nausea or vomiting. She states she gets short of breath every once in a while, wears 3 L of oxygen at all times, with a history of COPD. She reports generalized pain, especially to the left shoulder. She reports shehas never smoked, she does not drink alcohol. EKG in the ER shows sinus rhythm with a first-degree block, and PVCs. CT of thehead shows mild atrophy, no acute findings. CT of the C-spine shows no acute fracture. Chest x-ray shows right pleural effusion, shoulder x-ray shows degenerative joint disease, no acute fracture these are both pending final read.Labwork in the ER shows hyponatremia with a sodium of 127, BUN 63, creatinine 4.72 glucose 191, ALP 135, BNP 806, troponin 33.1, total CK 29.anemia with an H&H of 10.7/32.7?increased from prior results. Patient was medicated with Dilaudid and Zofran. She will be admitted as observation under the care of the hospitalist team for further evaluation and treatment. Review of Systems Review of Systems Review of systems: A 10 point review of systems was obtained, negative unless noted in the HPI or below. [facility] Medical History (Updated 10/29/22 @ 23:43 by Malika Arreaga APRN) Anemia Anxiety Anxiety and depression Arthritis AV fistula left CAD (coronary artery disease) Cataract had bilateral PHACO Cervical spinal stenosis CHF (congestive heart failure) Chronic back pain Chronic kidney disease COPD (chronic obstructive pulmonary disease) Diabetes GERD (gastroesophageal reflux disease) HTN (hypertension) Hyperlipidemia Insomnia Irregular heart rhythm prior to stent placement per pt report Lumbosacral spondylolysis LVH (left ventricular hypertrophy) Neck pain with history of cervical spinal surgery Neuropathy right thigh and feet Pneumonia Polymyalgia Skin cancer mohs procedure for removal Sleep apnea Surgical History H/O heart artery stent History of appendectomy History of back surgery lumbar History of x2 History of carpal tunnel release bilateral History of coronary angioplasty with insertion of stent History of D&C History of shoulder surgery rt shoulder History of tonsillectomy History of total abdominal hysterectomy and bilateral salpingo-oophorectomy Family History Father Heart disease Cancer Mother Cancer Diabetes Social History Marital Status: Household Members: family Housing: house Smoking Status: Never smoker Substance Use Type: None Social History Comments: adult son Meds Medications and Allergies Allergies lisinopril Allergy (Verified 10/29/22 20:08) Cough Home Medications atorvastatin 40 mg tablet 40 mg PO QPM 11/19/16 [History Confirmed 10/29/22] multivitamin 1 tab PO DAILY 09/07/19 [History Confirmed 10/29/22] aspirin 81 mg tablet,delayed release 81 mg PO DAILY 11/25/19 [History Confirmed 10/29/22] cholecalciferol (vitamin D3) 25 mcg (1,000 unit) tablet (Vitamin D3) 25 mcg PO DAILY 11/25/19 [History Confirmed 10/29/22] citalopram 40 mg tablet 40 mg PO DAILY 11/25/19 [History Confirmed 10/29/22] umeclidinium 62.5 mcg-vilanterol 25 mcg/actuation powdr for inhalation (Anoro Ellipta) 1 inh inhalation DAILY 11/25/19 [History Confirmed 10/29/22] albuterol sulfate 0.63 mg/3 mL solution for nebulization 0.63 mg inhalation QID PRN SOB 06/26/21 [History Confirmed 10/29/22] dextrose 40 % oral gel (Glutose-15) 0.6 g PO PRN PRN Hypoglycemia #112.5 grams 11/20/21 [Rx Confirmed 10/29/22] docusate sodium 100 mg capsule 100 mg PO BID #60 caps 11/20/21 [Rx Confirmed 10/29/22] furosemide 40 mg tablet 60 mg PO BID #60 tabs 11/20/21 [Rx Confirmed 10/29/22] insulin aspart U-100 100 unit/mL (3 mL) subcutaneous pen (Novolog FlexPen U-100 Insulin aspart) 1 sliding scale dose subcut TID.WM.HS #15 mL 11/20/21 [Rx Confirmed 10/29/22] pen needle, diabetic 32 gauge x 5/32 (BD Ultra-Fine Lexis Pen Needle) #100 ea 11/20/21 [Rx Confirmed 10/29/22] calcium acetate(phosphat bind) 667 mg capsule 667 mg PO TID.WITH.MEALS 60 days #240 caps 02/26/22 [Rx Confirmed 10/29/22] hydrocodone 7.5 mg-acetaminophen 325 mg tablet 1 tab PO Q6H PRN Pain 2 days #8 tabs 02/26/22 [Rx Confirmed 10/29/22] isosorbide mononitrate 60 mg tablet,extended release 24 hr 60 mg PO DAILY 05/02/22 [History Confirmed 10/29/22] valsartan 160 mg tablet 160 mg PO DAILY 05/02/22 [History Confirmed 10/29/22] carvedilol 12.5 mg tablet 12.5 mg PO BID 05/17/22 [History Confirmed 10/29/22] pantoprazole 40 mg tablet,delayed release 40 mg PO DAILY 05/17/22 [History Confirmed 10/29/22] sennosides 8.6 mg tablet (senna) 8.6 mg PO BID 05/17/22 [History Confirmed 10/29/22] amoxicillin 500 mg-potassium clavulanate 125 mg tablet 1 tab PO TID 10/29/22 [History Confirmed 10/29/22] midodrine 5 mg tablet 5 mg PO TID PRN pre hd 10/29/22 [History Confirmed 10/29/22] Exam Physical Exam Vital Signs: Temp Pulse Resp BP Pulse Ox O2 Del Method O2 Flow Rate 97.5 F L 75 18 95/53 L 95 Nasal Cannula 4 10/29/22 20:02 10/29/22 22:41 10/29/22 22:41 10/29/22 22:41 10/29/22 22:41 10/29/22 22:41 10/29/22 22:41 Narrative: CONST- Appears well -developed and well nourished. Frail HEAD - Normocephalic, ecchymosis and swelling to top of head EENT-Sclera nonicteric, conjunctive are non-erythemic, moist oral mucosa, pharynx clear, bruising to left eye NECK-Supple, no cervical lymphadenopathy CARDIAC-normal rate, regular rhythm, S1 & S2. Murmur PULM-diminished without wheeze or rhonchi, 3L NC, no accessory muscle use or cough noted ABD - Soft. Bowel sounds are normal. Softly distended. No tenderness EXTREM-no edema BLE calves, tender due to abrasions, AV fistula to LUE-good thrill noted SKIN- W/D good turgor, multiple abrasions to BLE, two bruises and abrasions to head MS- MAEX4 spontaneously with equal- generalized weakness, weakness and pain to LUE NEURO- A&Ox3 speech clear and tongue midline, equal facial symmetry, no focal motor deficits PSYCH-Mood, affect, and behavior appropriate Results Lab Results Labs: Laboratory Last Values Corrected WBC 6.7 X10E3/uL (3.8-11.6) 10/29/22 20:40 Uncorrected WBC Count 6.7 x10E3/uL (3.8-11.6) 10/29/22 20:40 RBC 3.55 X10E6/uL (3.60-5.00) L 10/29/22 20:40 Hgb 10.7 g/dL (11.8-15.4) L 10/29/22 20:40 Hct 32.7 % (34.0-46.4) L 10/29/22 20:40 MCV 92.1 fl (80-100) 10/29/22 20:40 MCH 30.2 pg (24.7-34.3) 10/29/22 20:40 MCHC 32.8 g/dL (32.0-35.0) 10/29/22 20:40 RDW 17.1 % (11.9-15.3) H 10/29/22 20:40 Plt Count 371 x10E3/uL (150-450) 10/29/22 20:40 MPV 7.7 fl (6.3-10.7) 10/29/22 20:40 Neut % (Auto) 68.4 % (.) 10/29/22 20:40 Lymph % (Auto) 14.3 % (.) 10/29/22 20:40 Mchenry % (Auto) 13.3 % (.) 10/29/22 20:40 Eos % (Auto) 3.5 % (.) 10/29/22 20:40 Baso % (Auto) 0.5 % (.) 10/29/22 20:40 Nucleat RBC Rel Count 0.1 /100 WBC (0-0.5) 10/29/22 20:40 Neut # (Auto) 4.6 x10E3/uL (1.8-7.7) 10/29/22 20:40 Lymph # (Auto) 1.0 x10E3/uL (1.00-4.8) 10/29/22 20:40 Mchenry # (Auto) 0.9 x10E3/uL (0.0-0.8) H 10/29/22 20:40 Eos # (Auto) 0.2 x10E3/uL (0.0-0.45) 10/29/22 20:40 Baso # (Auto) 0.0 x10E3/uL (0.0-0.2) 10/29/22 20:40 Monocyte Dist Width 24.74 % (0.00-20.00) H 10/29/22 20:40 PT 12.5 Seconds (9.0-12.9) 10/29/22 20:40 INR 1.1 10/29/22 20:40 APTT 30.5 Seconds (25.1-36.5) 10/29/22 20:40 PHA Creatinine Clear 8.89 10/29/22 20:40 Sodium 127 mmol/L (136-145) L 10/29/22 20:40 Potassium 3.7 mmol/L (3.5-5.1) 10/29/22 20:40 Chloride 90 mmol/L (98-107) L 10/29/22 20:40 Carbon Dioxide 23.3 mmol/L (21.0-31.0) 10/29/22 20:40 Anion Gap 17.4 mEq/L (6.0-15.0) H 10/29/22 20:40 BUN 63 mg/dL (7-25) H 10/29/22 20:40 Creatinine 4.72 mg/dL (0.60-1.20) H 10/29/22 20:40 Est GFR (CKD-EPI) 9.126 mL/Min 10/29/22 20:40 Glucose 191 mg/dL (70-100) H 10/29/22 20:40 Calcium 10.2 mg/dL (8.6-10.3) 10/29/22 20:40 Total Bilirubin 0.4 mg/dl (0.3-1.0) 10/29/22 20:40 AST 19 U/L (13-39) 10/29/22 20:40 ALT 19 U/L (7-52) 10/29/22 20:40 Alkaline Phosphatase 135 U/L (34-104) H 10/29/22 20:40 Total Creatine Kinase 29 U/L (30-223) L 10/29/22 20:40 Troponin I High Sens 33.1 pg/mL (0.0-15.0) H 10/29/22 20:40 B-Natriuretic Peptide 806.0 pg/mL (5-100) H 10/29/22 20:40 Total Protein 7.6 gm/dL (6.4-8.9) 10/29/22 20:40 Albumin 3.5 gm/dL (3.5-5.7) 10/29/22 20:40 Globulin 4.1 gm/dL 10/29/22 20:40 Albumin/Globulin Ratio 0.9 10/29/22 20:40 Assessment & Plan Assessment/Plan (1) Fall: (2) ESRD (end stage renal disease): (3) Hyponatremia: (4) Diabetes: (5) COPD (chronic obstructive pulmonary disease): (6) HTN (hypertension): Plan Mechanical fall ? Fall precautions ? Consult PT/OT - Pain control Acute on chronic hypoxic respiratory failure ESRD on HD?current creatinine 4.72, patient's last dialysis on Friday Hyponatremia?current sodium level 127 ? Consult nephrology for dialysis, hyponatremia ? 1500 cc fluid restriction Chronic conditions T2DM?fingersticks ACHS, SSI C COPD?3 L nasal cannula at all times, monitor SPO2, keep greater than 90% HTN- blood pressure soft after Dilaudid in the ER, continue to monitor?resume carvedilol, valsartan, she also takes midodrine on HD days DVT PPx-SCDs, heparin Diet order-1800 ADA, 1500 cc fluid restriction CODE STATUS-full code as discussed with patient Attending Physician Attestation: I personally reviewed the history, performed the chow elements of the exam, formulated the plan of care and confirmed the written note. I agree with the findings and plan as documented in this note and have edited it if needed to reflect my findings and plan. Gary Strange MD IP vs OBS Justification Based on differential dx, clinical care plan, and risk of adverse events, if untreated, in my clinical judgement this patient requires an acute care setting as: OBSERVATION because of an expectation of an under 2 midnight stay. Estimated length of stay (# of days): 2 Documented By: Malika Arreaga APRN 10/29/22 2331 Signed By: <Electronically signed by NELI Arreaga> 10/30/22 0004 <Electronically signed by Gary Almaguer MD> 10/30/22 0006 [facility] Work Phone: History and physical note Author Carlton Mtz [facility] December 30, 2022 3:22am Note Date/Time December 30, 2022 3:06am [facility] [address] [place] [address] Hospitalist H&P Signed Patient: Cinthya Wilson MR#: [id number] : 1945 Acct:[id number] Age/Sex: 77 / F Adm Date: 3 Loc: Room: [address] [place] [address] Type: ADM IN Attending Dr: Carlton Mtz DO Copies to: MD Carlton Bourgeois II, ~ HPI DATE OF EXAMINATION: 12/30/22 CHIEF COMPLAINT: fatigue, weakness, abdominal bloating. HISTORY OF PRESENT ILLNESS: This is a 77-year-old woman came emergency room today because she is getting very weak at home. She is also having shortness of breath. Things were gettingmuch worse today during the daytime on Friday. Reportedly she slept all day. She was having a little bit of a fever. In the emergency room she seemed to have pain everywhere throughout her body. She was very weak. She almost fell just getting out of bed to the bedside commode. She is a longstanding hemodialysis patient for end-stage renal disease. She hasa history of coronary artery disease status post stenting about 10 years ago andhas heart failure with reduced ejection fraction. She also has hypertension, she has COPD and chronic hypoxic respiratory failure chronically using 3 L oxygen by nasal cannula, she has GERD, and she has diabetes mellitus type 2 on insulin. She has had recent stays here in the hospital from December 08 through December 09when she was having a wide-complex rhythm and was evaluated by cardiology. She returned on December 13 through December 16 with bradycardia. At that time cardiology recommended amiodarone to suppress bigeminy and short nonsustained runs of ventricular tachycardia but they also recommended cessation of her beta-madhu due to bradycardia. She is not anticoagulated. She is chronically hypotensive and requires midodrine especially on dialysis days. Upon arrival up to the medical floor it was noted that her heart rate is very slow at about 43 bpm. Nursing staff on the medical floor also noticed that her tongue seems to be enlarged and somewhat swollen. Patient indicates that she had noticed that her tongue was bigger because she was biting it more often. She made an appointment to see a dentist about this in a couple weeks. She was started on buspirone 10 mg daily and gabapentin 100 mg p.o. twice daily just on December 26, so that was about 3 to 4 days ago. Also, looking at her OARRS report, she was upgraded from chronic use of hydrocodone product such as [place] 10/325 up to Percocet 5/325 enough for 4 tablets a day. Looking at her OARRS report I never saw her picking up gabapentin before. Notably her hemoglobin in the emergency room today was only 8.8. When she left the hospital on December 16 it was in its baseline of 10.4. The patient states that she has been constipated and has not moved her bowels for the last 4 days. Review of Systems Review of Systems Review of systems: 10 systems are reviewed and are negative except as mentioned elsewhere in the documentation. [facility] Medical History Anemia Anxiety Anxiety and depression Arthritis AV fistula left CAD (coronary artery disease) Cataract had bilateral PHACO Cervical spinal stenosis CHF (congestive heart failure) Chronic back pain Chronic kidney disease COPD (chronic obstructive pulmonary disease) Diabetes ESRD (end stage renal disease) GERD (gastroesophageal reflux disease) HTN (hypertension) Hyperlipidemia Insomnia Irregular heart rhythm prior to stent placement per pt report Lumbosacral spondylolysis LVH (left ventricular hypertrophy) Neck pain with history of cervical spinal surgery Neuropathy right thigh and feet Pneumonia Polymyalgia Skin cancer mohs procedure for removal Sleep apnea Surgical History H/O heart artery stent History of appendectomy History of back surgery lumbar History of x2 History of carpal tunnel release bilateral History of coronary angioplasty with insertion of stent History of D&C History of shoulder surgery rt shoulder History of tonsillectomy History of total abdominal hysterectomy and bilateral salpingo-oophorectomy Family History Father Heart disease Cancer Mother Cancer Diabetes Social History Smoking Status: Never smoker Substance Use Type: None Social History Comments: adult son Meds Medications and Allergies Allergies lisinopril Allergy (Verified 12/06/22 18:31) Cough Home Medications atorvastatin 40 mg tablet 40 mg PO QPM 10/10/17 [History Confirmed 12/29/22] multivitamin 1 tab PO DAILY 09/07/19 [History Confirmed 12/29/22] aspirin 81 mg tablet,delayed release 81 mg PO DAILY 11/25/19 [History Confirmed 12/29/22] cholecalciferol (vitamin D3) 25 mcg (1,000 unit) tablet (Vitamin D3) 25 mcg PO DAILY 11/25/19 [History Confirmed 12/29/22] citalopram 40 mg tablet 40 mg PO DAILY 11/25/19 [History Confirmed 12/29/22] albuterol sulfate 0.63 mg/3 mL solution for nebulization 0.63 mg inhalation QID PRN SOB 06/26/21 [History Confirmed 12/29/22] dextrose 40 % oral gel (Glutose-15) 0.6 g PO PRN PRN Hypoglycemia #112.5 grams 11/20/21 [Rx Confirmed 12/29/22] docusate sodium 100 mg capsule 100 mg PO BID #60 caps 11/20/21 [Rx Confirmed 12/29/22] insulin aspart U-100 100 unit/mL (3 mL) subcutaneous pen (Novolog FlexPen U-100 Insulin aspart) 1 sliding scale dose subcut TID.WM.HS #15 mL 11/20/21 [Rx Confirmed 12/29/22] pen needle, diabetic 32 gauge x 5/32 (BD Ultra-Fine Lexis Pen Needle) #100 ea 11/20/21 [Rx Confirmed 12/13/22] calcium acetate(phosphat bind) 667 mg capsule 667 mg PO TID.WITH.MEALS 60 days #240 caps 02/26/22 [Rx Confirmed 12/29/22] pantoprazole 40 mg tablet,delayed release 40 mg PO DAILY 05/17/22 [History Confirmed 12/29/22] diclofenac sodium 1 % topical gel (Voltaren Arthritis Pain) 4 g topical QID #0 grams 10/31/22 [Rx Confirmed 12/29/22] furosemide 20 mg tablet 60 mg PO BID 30 days #180 tabs 10/31/22 [Rx Confirmed 12/29/22] fluticasone fur. 100 mcg-umeclid 62.5 mcg-vilant 25 mcg inhalat.powder (Trelegy Ellipta) 1 ea inhalation DAILY 12/06/22 [History Confirmed 12/29/22] oxycodone-acetaminophen 5 mg-325 mg tablet 1 tab PO Q4-6H PRN Pain 12/06/22 [History Confirmed 12/29/22] pramipexole 0.5 mg tablet 0.5 mg PO HS 12/06/22 [History Confirmed 12/29/22] midodrine 5 mg tablet 5 mg PO TID PRN Hypotension 12/07/22 [History Confirmed 12/29/22] darbepoetin theodore in polysorbat 60 mcg/mL in polysorbate injection (Aranesp) mcg 12/29/22 [History] fluticasone fur. 100 mcg-umeclid 62.5 mcg-vilant 25 mcg inhalat.powder (Trelegy Ellipta) inhalation 12/29/22 [History] insulin lispro 100 unit/mL subcutaneous pen (Humalog KwikPen (U-100) Insulin) subcut 12/29/22 [History] ondansetron 4 mg disintegrating tablet 4 mg PO Q6H PRN Nausea 12/29/22 [History Confirmed 12/29/22] pramipexole 0.5 mg tablet (Mirapex) 0.5 mg PO QHS 12/29/22 [History Confirmed 12/29/22] Exam Physical Exam Vital Signs: Temp Pulse Resp BP Pulse Ox O2 Del Method O2 Flow Rate 98.1 F 63 18 107/42 L 95 Nasal Cannula 3 12/30/22 02:42 12/30/22 02:42 12/30/22 02:42 12/30/22 02:42 12/30/22 02:42 12/30/22 02:42 12/30/22 02:42 Narrative: GEN: Profoundly fatigued. Falls asleep multiple times during the interview andexam. Head: Normal Cephalic, Atraumatic. Eyes: Conjunctiva and sclera clear bilaterally. Nose: External nose and nares normal bilaterally. Mouth: Tongue is moderately enlarged. Mucosa membranes are dry. I do not see any acute erythema. I do not see any thrush. Lips are normal so I do not have a severe suspicion of an anaphylactic reaction. Neck: No JVD. No thyromegaly. No lymphadenopathy. Lungs: Clear to auscultation bilaterally, no wheezing, no crackles. Heart: Regular rate and rhythm, no murmurs, rubs, or gallops. Abdomen: Moderately bloated. This is soft. Difficult to tell if she just has some increased gaseous distention or if there is underlying ascites. Extremities: No swelling or cords in the calves bilaterally, no edema in the ankles bilaterally. Skin: No systemic rashes or lesions. Neuro: When she does speak her speech is clear and normal. Results Lab Results Labs: Laboratory Last Values Corrected WBC 9.6 X10E3/uL (3.8-11.6) 12/29/22 22:20 Uncorrected WBC Count 9.6 x10E3/uL (3.8-11.6) 12/29/22 22:20 RBC 3.10 X10E6/uL (3.60-5.00) L 12/29/22 22:20 Hgb 8.8 g/dL (11.8-15.4) L 12/29/22 22:20 Hct 27.8 % (34.0-46.4) L 12/29/22 22:20 MCV 89.6 fl (80-100) 12/29/22 22:20 MCH 28.4 pg (24.7-34.3) 12/29/22 22:20 MCHC 31.7 g/dL (32.0-35.0) L 12/29/22 22:20 RDW 17.6 % (11.9-15.3) H 12/29/22 22:20 Plt Count 397 x10E3/uL (150-450) 12/29/22 22:20 MPV 7.2 fl (6.3-10.7) 12/29/22 22:20 Neut % (Auto) 71.9 % (.) 12/29/22 22:20 Lymph % (Auto) 12.9 % (.) 12/29/22 22:20 Mchenry % (Auto) 13.9 % (.) 12/29/22 22:20 Eos % (Auto) 1.0 % (.) 12/29/22 22:20 Baso % (Auto) 0.3 % (.) 12/29/22 22:20 Nucleat RBC Rel Count 0.0 /100 WBC (0-0.5) 12/29/22 22: Neut # (Auto) 6.9 x10E3/uL (1.8-7.7) 12/29/22 22:20 Lymph # (Auto) 1.2 x10E3/uL (1.00-4.8) 12/29/22 22:20 Mchenry # (Auto) 1.3 x10E3/uL (0.0-0.8) H 12/29/22 22:20 Eos # (Auto) 0.1 x10E3/uL (0.0-0.45) 12/29/22 22:20 Baso # (Auto) 0.0 x10E3/uL (0.0-0.2) 12/29/22 22:20 Monocyte Dist Width 23.39 % (0.00-20.00) H 12/29/22 22:20 PT 12.2 Seconds (9.0-12.9) 12/29/22 22:20 INR 1.0 12/29/22 22:20 APTT 27.1 Seconds (25.1-36.5) 12/29/22 22:20 PHA Creatinine Clear 8.82 12/29/22 22:20 Sodium 126 mmol/L (136-145) L 12/29/22 22:20 Potassium 4.2 mmol/L (3.5-5.1) 12/29/22 22:20 Chloride 86 mmol/L (98-107) L 12/29/22 22:20 Carbon Dioxide 25.8 mmol/L (21.0-31.0) 12/29/22 22:20 Anion Gap 18.4 mEq/L (6.0-15.0) H 12/29/22 22:20 BUN 76 mg/dL (7-25) H 12/29/22 22:20 Creatinine 4.76 mg/dL (0.60-1.20) H 12/29/22 22:20 Est GFR (CKD-EPI) 9.034 mL/Min 12/29/22 22:20 Glucose 144 mg/dL (70-100) H 12/29/22 22:20 Lactic Acid 1.0 mmol/L (0.5-2.2) 12/29/22 22:20 Calcium 10.2 mg/dL (8.6-10.3) 12/29/22 22:20 Total Bilirubin 0.4 mg/dl (0.3-1.0) 12/29/22 22:20 AST 21 U/L (13-39) 12/29/22 22:20 ALT 26 U/L (7-52) 12/29/22 22:20 Alkaline Phosphatase 146 U/L (34-104) H 12/29/22 22:20 Troponin I High Sens 24.0 pg/mL (0.0-15.0) H 12/29/22 22:20 B-Natriuretic Peptide 1358.0 pg/mL (5-100) H 12/29/22 22:20 Total Protein 6.9 gm/dL (6.4-8.9) 12/29/22 22:20 Albumin 3.2 gm/dL (3.5-5.7) L 12/29/22 22:20 Globulin 3.7 gm/dL 12/29/22 22:20 Albumin/Globulin Ratio 0.9 12/29/22 22:20 SARS-CoV-2 Rap RNA(RT-PCR) Negative (Negative) 12/29/22 22:12 Microbiology Results Micro: Microbiology - Results from entire visit 12/29/22 22:12 Nasopharyngeal SARS-CoV-2, Influenza & RSV (PCR) - Final Assessment & Plan Assessment/Plan (1) Weakness: (2) Swollen tongue: (3) Symptomatic bradycardia: (4) Anemia: (5) Diabetes: (6) COPD (chronic obstructive pulmonary disease): (7) CAD (coronary artery disease): (8) Recurrent right pleural effusion: (9) Type 2 diabetes mellitus with diabetic chronic kidney disease: (10) Fever: Plan Assessment/Plan. Profound fatigue and weakness. Multiple etiologies are possible and this is a very debilitated patient who is on end-stage renal disease. Swollen/enlarged tongue. Given the chronicity of starting new medications including buspirone and gabapentin just a few days ago I think these are the most likely etiologies. I will not continue the BuSpar nor the gabapentin at this time. Consult to speech therapy to evaluate the safety of her swallowing. Patient can use sips of water and also Biotene to moisturize her mouth Consideration is given to starting corticosteroids, but I do not want to start this in the setting of possible infection. Report of fever. My biggest concern and end-stage renal disease patient is bacteremia. Blood cultures x2 were taken in the emergency room. Nasal PCR testing was COVID negative as well as negative for influenza A and influenza B as well as RSV I will check a [employer] nasal PCR for more viral pathogens. I will order 2 more blood cultures to be done with her morning labs. She does not seem to make urine so it was not possible to collect a urine sample in the emergency room. Bradycardia. She was recently put on accelerated dosing of amiodarone. At that time though her beta-blockers were stopped due to intolerance to any beta-madhu. At this time I will hold her amiodarone. Consult to cardiology. Anemia. Which left the hospital in December 16 her hemoglobin was 10.4. In the ER today it is 8.8. I will check anemia labs with her morning labs this morning. Type and screen are ordered. Nursing staff to monitor stools closely for any melena. IP vs OBS Justification Based on differential dx, clinical care plan, and risk of adverse events, if untreated, in my clinical judgement this patient requires an acute care setting as: INPATIENT because of an expectation of an over 2 midnight stay. Estimated length of stay (# of days): 5 Documented By: Carlton Mtz DO [id number] Signed By: <Electronically signed by Carlton Mtz, > 12/30/22 0322 [facility] Work Phone: History general Narrative - Reported* Type Description Date Medical History Diabetes Medical History Hypertension Medical History Hyperlipidemia Medical History Congestive Heart Failure Medical History kidney disease, stage 3 Medical History right foot fracture Medical History inflammation in joints and muscl es Surgical History cardiac stent 2009 Surgical History back surgery Surgical History carpal tunnel release Surgical History hysterectomy Surgical History C section, x2 Surgical History Low back injections with pain m anagement Surgical History scope with stent placement 08/29 21 Hospitalization History see above surgical histo ry Hospitalization History Diana for bleeding tr ansferred to [facility] 08/2020 [employer] Other History general Narrative - Reported* Type Description Date Medical History Diabetes Medical History Hypertension Medical History Hyperlipidemia Medical History Congestive Heart Failure Medical History kidney disease, stage 3 Medical History right foot fracture Medical History inflammation in joints and muscl es Medical History URINARY TRACT INFECTION Surgical History cardiac stent 2009 Surgical History back surgery Surgical History carpal tunnel release Surgical History hysterectomy Surgical History C section, x2 Surgical History Low back injections with pain m anagement Surgical History scope with stent placement 08/29 20 Surgical History FISTULA PLACEMENT IN LEFT ARM Hospitalization History see above surgical histo ry Hospitalization History Diana for bleeding tr ansferred to [facility] 08/2020 [employer] Other Hisvxda general Narrative - Reported* Type Description Date Medical History Diabetes Medical History Hypertension Medical History Hyperlipidemia Medical History Congestive Heart Failure Medical History kidney disease, stage 3 Medical History right foot fracture Medical History inflammation in joints and muscl es Medical History URINARY TRACT INFECTION Medical History 11/16/21 CHRONIC KID SIMIN DISEASE STAGE 5, HYPONATREMIA, FLUID OVERLOAD, PRIMARY HYPERTENSION Surgical History cardiac stent 2009 Surgical History back surgery Surgical History carpal tunnel release Surgical History hysterectomy Surgical History C section, x2 Surgical History Low back injections with pain m anagement Surgical History scope with stent placement 08/29 20 Surgical History FISTULA PLACEMENT IN LEFT ARM Surgical History FISTULA 11/19/2021 Hospitalization History see above surgical histo ry Hospitalization History Diana for bleeding tr ansferred to [facility] 08/2020 Hospitalization History CHRONIC KIDNEY DISEASE S TAGE 5, HYPONATREMIA 11/16/2021 [employer] Other history general Narrative - Reported* Type Description Date Medical History Diabetes Medical History Hypertension Medical History Hyperlipidemia Medical History Congestive Heart Failure Medical History kidney disease, stage 3 Medical History right foot fracture Medical History inflammation in joints and muscl es Medical History URINARY TRACT INFECTION Medical History 11/16/21 CHRONIC KID SIMIN DISEASE STAGE 5, HYPONATREMIA, FLUID OVERLOAD, PRIMARY HYPERTENSION Medical History ANEMIA Surgical History cardiac stent 2009 Surgical History back surgery Surgical History carpal tunnel release Surgical History hysterectomy Surgical History C section, x2 Surgical History Low back injections with pain m anagement Surgical History scope with stent placement 08/29 20 Surgical History FISTULA PLACEMENT IN LEFT ARM Surgical History FISTULA 11/19/2021 Hospitalization History see above surgical histo ry Hospitalization History Diana for bleeding tr ansferred to [facility] 08/2020 Hospitalization History CHRONIC KIDNEY DISEASE S TAGE 5, HYPONATREMIA 11/16/2021 [employer] Other Hospital Discharge instructions Additional Instructions SNF to manage: -PT/OT to eval and treat -Monitor VS per protocol -Fall precautions -Monitor intake and output -Perform cardiovascular and respiratory assessments -Daily weights -Provide CHF education -Continue oxygen at 3L NC -Monitor for signs of infection -Wound care BID: *Theraworx protect to bilateral groin and abdominal fold redness. -Change dressing every 3 days: *Mepilex border foam to Coccyx for protection. -Monitor for urinary retention-- hobson catheter was removed on 02/26/22 -Monitor FSBS ACHS -Care to be managed by SNF providers.[facility] Work Phone: Hospital Discharge instructionsAmbulatory Orders* Initiate Home Health Time Frame: 1 Day, Location: Determined By Patient Additional Instructions Home health to manage: - PT/OT to eval and treat - Monitor VS routine - Continue 3lpm NC O2 as before - Continue hemodialysis Mondays, Wednesdays and Fridays - Gastrointestinal assessments - Dx. GIB - CHF assessments/education - Routine skin assessments/care -- Every 3 days - Mepilex border foam to Coccyx for protection. - Fall precautions - high fall [facility] Work Phone: Hospital Discharge instructions No data available for this section [facility]* Initiate Home Health Time Frame: 1 Day, Location: Determined By Patient Additional Instructions Home Health to manage care: - Full code - PT/OT eval and treat - Routine vital signs - Medication management and education - Bilateral feet fissures and right great toe- clean with vashe, apply silvasorb gel to areas, top with xeroform gauze, 4x4 and conforming gauze- band aid to right great toe - change every 2 days and as needed - Mepilex border foam to coccyx for added protection and to include right buttock pin point wound, change every 3 days and as needed - Oxygen at 3L per nasal cannula per chronic orders - Hemodialysis per chronic schedule - Fingerstick blood sugar [facility] Work Phone: Progress note Author Jamal Schaefer [facility] February 23, 2022 9:43am Note Date/Time February 23, 2022 9 :43am [facility] [address] [place] [address] Hospitalist Progress Note Signed Patient: Cinthya Wilson MR#: [id number] : 1945 Acct:[id number] Age/Sex: 76 / F Adm Date: 3 Loc: 4N Room: 6D6483-7 Type: ADM IN Attending Dr: Jmaal Schaefer MD Copies to: ~ Date of Service: 02/23/2022 Subjective Subjective Narrative: Patient is sitting in her chair. She is eating her breakfast. She is alert oriented x3 with no evidence of focal deficit. She does have asterixis however. Heart is regular Lungs are clear Abdomen soft benign Neurological as noted Exam Physical Exam Vital Signs: Temp Pulse Resp BP Pulse Ox O2 Del Method O2 Flow Rate 99.0 F 70 20 142/62 H 99 Nasal Cannula 3 02/23/22 08:00 02/23/22 09:12 02/23/22 09:12 02/23/22 08:00 02/23/22 08:00 02/23/22 08:00 02/23/22 08:00 Objective Lab Results 02/23/22 04:25 02/23/22 04:25 Microbiology Results Microbiology 02/22/22 19:08 Urine - Clean-Voided Midstream Urine Culture - Preliminary <9,000 colonies/ml mixed bacterial skin contaminants 1 Day 02/22/22 19:26 Nasopharyngeal SARS-CoV-2, Influenza & RSV (PCR) - Final Meds Allergies and Active Meds Allergies lisinopril Allergy (Verified 02/22/22 18:27) Cough Active Meds: Active Medications Generic Name Dose Route Start Last Admin Trade Name Freq PRN Reason Stop Dose Admin Acetaminophen 650 mg 02/22/22 21:17 Acetaminophen 325 Mg Tablet PO 02/22/23 21:16 Q6HR PRN Pain Scale 1 - 3 or fever Hydrocodone Bitart/Acetaminophen 1 tab 02/22/22 23:16 02/23/22 08:25 Hydrocodone/Acetaminophen 7.5-325mg Tablet PO 1 tab Q6H PRN Administration Pain Albuterol 2.5 mg 02/22/22 21:26 Albuterol Neb 2.5 Mg/3 Ml Vial.Neb INHALATION 02/22/23 21:25 QID PRN Shortness Of Breath Albuterol/Ipratropium 3 ml 02/23/22 08:00 02/23/22 09:12 Ipratropium/Albuterol 0.5-3 Mg 3 Ml Ampul.Neb INHALATION 02/23/23 07:59 3 ml QID.RESP YESSENIA Administration Aspirin 81 mg 02/23/22 09:00 02/23/22 08:25 Aspirin 81 Mg Tablet.Dr PO 02/23/23 08:59 81 mg DAILY YESSENIA Administration Atorvastatin Calcium 40 mg 02/23/22 21:00 Atorvastatin 40 Mg Tablet PO 02/23/23 20:59 QPM YESSENIA Carvedilol 12.5 mg 02/23/22 09:00 02/23/22 08:25 Carvedilol 12.5 Mg Tablet PO 02/23/23 08:59 12.5 mg BID YESSENIA Administration Citalopram Hydrobromide 40 mg 02/23/22 09:00 02/23/22 08:25 Citalopram 40 Mg Tablet PO 02/23/23 08:59 40 mg DAILY YESSENIA Administration Docusate Sodium 100 mg 02/23/22 09:00 02/23/22 08:25 Docusate 100 Mg Capsule PO 02/23/23 08:59 100 mg BID YESSENIA Administration Furosemide 80 mg 02/22/22 21:25 02/23/22 08:25 Furosemide 100 Mg/10 Ml Vial IV-PUSH 02/22/23 21:24 80 mg BID@0800,1600 YESSENIA Administration Heparin Sodium (Porcine) 5,000 unit 02/22/22 22:00 02/23/22 05:26 Heparin 5,000 Unit/Ml Vial SUBCUT 02/22/23 21:59 5,000 unit Q8HR YESSENIA Administration Hydralazine HCl 50 mg 02/22/22 22:00 02/23/22 08:25 Hydralazine 50 Mg Tablet PO 02/22/23 21:59 50 mg TID YESSENIA Administration Ceftriaxone Sodium 1 gm in 50 mls @ 100 mls/hr 02/23/22 22:00 Rocephin IV Q24H [facility] Insulin Aspart 0 units 02/22/22 22:00 02/23/22 08:26 Insulin Aspart 300 Units/3 Ml Insuln.Pen SUBCUT 02/22/23 21:59 Not Given TID.WM.HS [facility] Protocol Isosorbide Mononitrate 60 mg 02/23/22 09:00 02/23/22 08:25 Isosorbide Mononitrate 24hr Er 60 Mg Tab.Er.24h PO 02/23/23 08:59 60 mg QAM YESSENIA Administration Melatonin 5 mg 02/22/22 21:17 Melatonin 5 Mg Tablet PO 02/22/23 21:16 QHS PRN Insomnia Nystatin 1 applic 02/23/22 02:43 Nystatin 100,000 Unit/Gram Powder 15 Gm Bottle TOPICAL BID PRN Skin Irritation Omeprazole 40 mg 02/23/22 09:00 02/23/22 08:25 Omeprazole 20 Mg Capsule. PO 02/23/23 08:59 40 mg DAILY YESSENIA Administration Promethazine HCl 12.5 mg 02/22/22 21:17 Promethazine 25 Mg/Ml Vial IV-PUSH 02/22/23 21:16 Q6H PRN Nausea And Vomiting Sodium Bicarbonate 1,300 mg 02/23/22 09:00 02/23/22 08:25 Sodium Bicarbonate 650 Mg Tablet PO 02/23/23 08:59 1,300 mg TID YESSENIA Administration Sodium Chloride 0 ml 02/22/22 18:26 02/23/22 08:26 Sodium Chloride 0.9 % 10 Ml Syringe IV-PUSH 02/22/23 18:25 10 ml PRN PRN Administration Flush Sodium Chloride 10 ml 02/22/22 21:17 Sodium Chloride 0.9 % 10 Ml Vial.Pf INJECTION 02/22/23 21:16 PRN PRN Promethazine Dilution Temazepam 15 mg 02/22/22 23:16 02/22/22 23:53 Temazepam 15 Mg Capsule PO 08/21/22 23:15 15 mg QHS PRN Administration Sleep Tramadol HCl 50 mg 02/22/22 21:17 Tramadol 50 Mg Tablet PO 08/21/22 21:16 Q6H PRN Pain Scale 4 - 7 A&P - Hospitalist Assessment/Plan (1) Acute hypoxemic respiratory failure: (2) DAVID (acute kidney injury): (3) Systolic and diastolic CHF, acute on chronic: (4) UTI (urinary tract infection): (5) Anemia: (6) HTN (hypertension): (7) Diabetes: (8) COPD (chronic obstructive pulmonary disease): Plan Progression of CKD to stage V, with fluid overload, uremia and uremic encephalopathy Patient seen by nephrology. Will likely initiate hemodialysis Oral bicarbonate in the meantime Chronic conditions Anemia of chronic disease? Monitor H&H HTN?monitor, resume home meds?carvedilol, hydralazine COPD?Anoro Ellipta, nebulizers as needed GERD?resume home meds?omeprazole DVT PPx?SCDs, heparin CODE STATUS?DNR CCA without intubation as discussed with patient and daughter atbedside Documented By: Jamal Schaefer MD 02/23/2242 Signed By: <Electronically signed by Jamal Schaefer MD> 02/23/22 0943 [facility] Work Phone: Progress note Author Geronimo Fofana [facility] February 27, 2022 2:29pm Note Date/Time February 27, 2022 2 :29pm [facility] [address] [place] [address] Nephrology Progress Note Signed Patient: Cinthya Wilson MR#: [id number] : 1945 Acct:[id number] Age/Sex: 76 / F Adm Date: 3 Loc: 4N Room: [address] [place] [address] Type: ADM IN Attending Dr: Simone Godoy MD Copies to: ~ Date of Service: 02/27/2022 Subjective Subjective Narrative: Mrs. 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 Patient is known to our service and she had historyof DAVID requiring peritoneal dialysis for almost a year before renal recovery with serum creatinine stabilized at 2.5 mg/dL.? Recently, CKD progressed to stage IV/V with recurrent admissions for CHF and pleural effusion and shortness of breath. She was also discharged from the hospital on November 2021 for fluid overload that was treated with diuretics and furosemide was increased to 60 mg twice a day.? Patient has left arm AV fistula that is ready to be used.? She had a recent ultrasound that showed fistula is less than 6 mm below the skin with adequate blood flow. Patient presented to the ER yesterday again with manifestation of shortness of breath with volume overload and altered mental status.? She had poor appetite with decreased oral intake.? She has difficulty to sleep over the last few days.? She has mild abdominal distention, edema and shortness of breath.? She normally will 3 L/min nasal cannula at home.? She has a recurrent pleural effusion that required thoracocentesis.? Evaluation in the ER showed mild wheezes with labored breathing.? ER lab showed hemoglobin of 8.2.? Chemistry wassignificant for mild acidosis 18.4, BUN up to 126, creatinine 5.19 mg/dL significant higher than baseline.? BNP is elevated as well 3549.? Urine analysisshowed 10-19 WBCs with no bacteria.? Culture is pending.? Nasal swab was negative for influenza and COVID-19. Chest x-ray showed bibasilar groundglass opacities and cardiomegaly.? CT scan ofthe head showed atrophy and chronic microvascular changes. EKG showed sinus rhythm with first-degree AV block. Interval history: Patient is being seen and examined during hemodialysis session today. Hemoglobin 6.9 g deciliter. I order 1 unit of RBCs to be given during dialysis. No nausea no vomiting. No diarrhea. No cough. No abdominal pain. No chest pain Exam Physical Exam Vital Signs: Temp Pulse Resp BP Pulse Ox O2 Del Method O2 Flow Rate 98.8 F 68 16 123/55 L 99 Nasal Cannula 3 02/27/22 13:20 02/27/22 13:20 02/27/22 13:20 02/27/22 13:20 02/27/22 13:20 02/27/22 13:20 02/27/22 13:20 Narrative: General: No acute distress Head :atraumatic normocephalic Eyes: PERRLA. Neck: no JVD no bruit. Heart: S1-S2. RRR Respiratory: Clear to auscultation. No wheezing. No crackles Abdomen: Soft, positive bowel sounds,no tenderness. Neurology: Awake alert oriented x3. No focal deficits Extremity. No cyanosis. No edema Skin: No skin rash Objective Intake and Output I&O: Intake & Output 02/24/22 02/25/22 02/26/22 02/27/22 23:59 23:59 23:59 23:59 Intake Total 970 / 970 1620 / 1620 1115 / 1115 700 / 700 Output Total 500 / 500 5438 / 5438 150 / 150 1807 / 1807 Balance 470 / 470 -3818 / -3818 965 / 965 -1107 / -1107 Weight 74.9 kg 75.8 kg 73.8 kg 74.3 kg Meds and Allergies Meds: Active Medications Acetaminophen (Acetaminophen 325 Mg Tablet) 650 mg PO Q6HR PRN PRN Reason: Pain Scale 1 - 3 or fever Stop: 02/22/23 21:16 Last Admin: 02/26/22 16:40 Dose: 650 mg Hydrocodone Bitart/Acetaminophen (Hydrocodone/Acetaminophen 7.5-325mg Tablet) 1tab PO Q6H PRN PRN Reason: Pain Last Admin: 02/27/22 07:36 Dose: 1 tab Albuterol (Albuterol Neb 2.5 Mg/3 Ml Vial.Neb) 2.5 mg INHALATION QID PRN PRN Reason: Shortness Of Breath Stop: 02/22/23 21:25 Last Admin: 02/25/22 02:14 Dose: 2.5 mg Albuterol/Ipratropium (Ipratropium/Albuterol 0.5-3 Mg 3 Ml Ampul.Neb) 3 ml INHALATION QID.RESP YESSENIA Stop: 02/23/23 07:59 Last Admin: 02/27/22 12:29 Dose: Not Given Aspirin (Aspirin 81 Mg Tablet.Dr) 81 mg PO DAILY YESSENIA Stop: 02/23/23 08:59 Last Admin: 02/26/22 08:31 Dose: 81 mg Atorvastatin Calcium (Atorvastatin 40 Mg Tablet) 40 mg PO QPM YESSENIA Stop: 02/23/23 20:59 Last Admin: 02/26/22 21:12 Dose: 40 mg Calcium Acetate (Calcium Acetate 667 Mg Capsule) 667 mg PO TID.WITH.MEALS YESSENIA Stop: 02/24/23 16:59 Last Admin: 02/27/22 12:33 Dose: Not Given Carvedilol (Carvedilol 12.5 Mg Tablet) 12.5 mg PO BID YESSENIA Stop: 02/23/23 08:59 Last Admin: 02/27/22 09:01 Dose: 12.5 mg Citalopram Hydrobromide (Citalopram 40 Mg Tablet) 40 mg PO DAILY YESSENIA Stop: 02/23/23 08:59 Last Admin: 02/26/22 08:32 Dose: 40 mg Heparin Sodium (Porcine) (Heparin 5,000 Unit/Ml Vial) 5,000 unit SUBCUT Q8HR YESSENIA Stop: 02/22/23 21:59 Last Admin: 02/27/22 05:05 Dose: 5,000 unit Heparin Sodium (Porcine) (Heparin 10,000 Unit/10 Ml Vial) 2,000 unit IV PRN PRN PRN Reason: Dialysis Stop: 02/23/23 10:58 Last Admin: 02/27/22 10:54 Dose: 2,000 unit Hydralazine HCl (Hydralazine 50 Mg Tablet) 50 mg PO TID [facility] Stop: 02/22/23 21:59 Last Admin: 02/27/22 09:00 Dose: 50 mg Sodium Chloride (0.9% Sodium Chloride 1,000 Ml) 1,000 mls @ 0 mls/hr MISCELLANE.Q0M PRN PRN Reason: Dialysis Stop: 02/23/23 10:58 Last Infusion: 02/25/22 11:08 Dose: Infused Sodium Chloride (0.9 % Sodium Chloride) 500 mls @ 20 mls/hr IV PROTOCOL PRN PRN Reason: BLOOD TRANSFUSION Stop: 02/28/22 08:34 Sodium Chloride (0.9% Sodium Chloride 1,000 Ml) 1,000 mls @ 0 mls/hr MISCELLANE.Q0M PRN PRN Reason: Dialysis Stop: 02/27/23 09:16 Last Infusion: 02/27/22 10:54 Dose: Infused Insulin Aspart (Insulin Aspart 300 Units/3 Ml Insuln.Pen) 0 units SUBCUT TID.WM.HS [facility]; Protocol Stop: 02/22/23 21:59 Last Admin: 02/27/22 12:33 Dose: Not Given Melatonin (Melatonin 5 Mg Tablet) 5 mg PO QHS PRN PRN Reason: Insomnia Stop: 02/22/23 21:16 Nystatin (Nystatin 100,000 Unit/Gram Powder 15 Gm Bottle) 1 applic TOPICAL BID PRN PRN Reason: Skin Irritation Last Admin: 02/24/22 17:03 Dose: 1 applic Omeprazole (Omeprazole 20 Mg Capsule.Dr) 40 mg PO DAILY [facility] Stop: 02/23/23 08:59 Last Admin: 02/26/22 08:31 Dose: 40 mg Promethazine HCl (Promethazine 25 Mg/Ml Vial) 12.5 mg IV-PUSH Q6H PRN PRN Reason: Nausea And Vomiting Stop: 02/22/23 21:16 Last Admin: 02/25/22 13:52 Dose: 12.5 mg Sodium Chloride (Sodium Chloride 0.9 % 10 Ml Syringe) 0 ml IV-PUSH PRN PRN PRN Reason: Flush Stop: 02/22/23 18:25 Last Admin: 02/24/22 08:29 Dose: 10 ml Sodium Chloride (Sodium Chloride 0.9 % 10 Ml Vial.Pf) 10 ml INJECTION PRN PRN PRN Reason: Promethazine Dilution Stop: 02/22/23 21:16 Last Admin: 02/25/22 13:52 Dose: 10 ml Sodium Chloride (Sodium Chloride 0.9 % 10 Ml Syringe) 0 ml IV-PUSH PRN PRN PRN Reason: Flush Stop: 02/23/23 10:58 Last Admin: 02/27/22 10:53 Dose: 10 ml Sodium Chloride (Sodium Chloride 0.9 % 10 Ml Syringe) 0 ml IV-PUSH PRN PRN PRN Reason: Flush Stop: 02/27/23 09:16 Spironolactone (Spironolactone 12.5 Mg Tablet) 12.5 mg PO DAILY [facility] Stop: 02/25/23 08:59 Last Admin: 02/26/22 08:33 Dose: 12.5 mg Temazepam (Temazepam 15 Mg Capsule) 15 mg PO QHS PRN PRN Reason: Sleep Stop: 08/21/22 23:15 Last Admin: 02/26/22 21:12 Dose: 15 mg Tramadol HCl (Tramadol 50 Mg Tablet) 50 mg PO Q12H PRN PRN Reason: Pain Scale 4 - 7 Stop: 08/21/22 21:16 Valsartan (Valsartan 80 Mg Tablet) 80 mg PO DAILY [facility] Stop: 02/25/23 08:59 Last Admin: 02/27/22 09:00 Dose: 80 mg Allergies lisinopril Allergy (Verified 02/22/22 18:27) Cough Results Labs 02/27/22 04:28 02/27/22 04:28 Labs: 02/27/22 04:28 BUN 51 H Creatinine 3.67 H D Radiology Impressions Impressions - last 24 hours: Any impression(s) listed above is documentation that was entered by the reading physician into a diagnostic report(s) for Cinthya Wilson. I have reviewed the report(s) and am incorporating any findings in the treatment plan of this patient where applicable. A&P - Nephrology Assessment/Plan (1) ESRD (end stage renal disease): Plan: Patient has progressive CKD currently reaching ESRD with recurrent admission forvolume overload.? Clinically the patient has poor oral intake, edema with weightgain and asterixis.? Hemodialysis was started on 02/23.? She has AV fistula whichis functioning well (2) Anemia: Plan: Hemoglobin dropped to 6.9 g deciliter this morning no active bleeding. (3) Systolic and diastolic CHF, acute on chronic: Plan: Patient has recurrent CHF with EF 45%.? Seems compensating. Volume status has improved with starting dialysis. (4) Diabetes: Plan: He has a longstanding history of diabetes with multiple diabetic complications (5) Primary hypertension: Plan: Blood pressure controlled on furosemide, isosorbide and hydralazine mainly for CHF with low EF. Plan * Hemodialysis session today: Blood flow rate 250, dialysate flow rate 500, ultrafiltration 2 L. We are using 17-gauge needle as per protocol for new cannulation of AV fistula. * I order 1 unit of RBCs today. Check hemoglobin in the morning if she remains inpatient * Continue Aranesp 40 mcg weekly for anemia in chronic kidney disease.? She has adequate iron stores, B12 and folic acid. * Continue calcium acetate 667 mg with each meal. * All medications were reviewed and will continue at the same. * [facility] standpoint after today hemodialysis Documented By: Geronimo Fofana MD 02/27/22 1425 Signed By: <Electronically signed by Geronimo Fofana MD> 02/27/22 1429 [facility] Work Phone: Progress note Author Carlton Mtz [facility] October 30, 2022 6:00pm Note Date/Time October 30, 2022 6:00pm [facility] [address] [place] [address] Hospitalist Progress Note Signed Patient: Cinthya Wilson MR#: [id number] : 1945 Acct:[id number] Age/Sex: 77 / F Adm Date: 3 Loc: 4P Room: 3E0285-4 Type: ADM INOo Attending Dr: Carlton Mtz DO Copies to: ~ Date of Service: 10/30/2022 Subjective Subjective Narrative: Today the patient got hemodialysis. She was noted to have very low systolic blood pressures, down all the way to 60 systolic, with this, but was relatively asymptomatic while he continued and completed hemodialysis session. Today the patient was seen by cardiology with Dr. Michel. The patient was having recurrent episodes of nonsustained ventricular tachycardia. The patient's continue his IV amiodarone infusion did complete today. Cardiology is planning to resume carvedilol once blood pressure stabilizes. When I rounded on the patient at suppertime she says that she is feeling okay. She denies any shortness of breath. She complains of pain in both shoulders. She had her right shoulder replaced in the past. 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 The fall that she had seems to have exacerbated the pain in both shoulders. I did review her OARRS report. She most recently picked up [place] 10 mg #120 [id number] supply. She has been picking up [place] consistently from the same provider but is dosage has increased somewhat over time. Exam Physical Exam Vital Signs: Temp Pulse Resp BP Pulse Ox O2 Del Method O2 Flow Rate 97.9 F 73 16 111/65 99 Nasal Cannula 3 10/30/22 14:10 10/30/22 14:10 10/30/22 14:10 10/30/22 14:10 10/30/22 14:10 10/30/22 16:00 10/30/22 16:00 Narrative: General: Reclining in bed. Awake. Oriented x3. Resting after getting her hemodialysis session earlier today. Cardiac: Right now has a sinus rhythm on the monitor. I do not see any runs of V. tach while I am in the room with her. Heart sounds are somewhat distant auscultation. Pulmonary: Clear to auscultation bilaterally. No wheezing. GI: Bowel sounds are somewhat hypoactive. No rigidity or pain fullness to palpation anywhere in the abdomen. Extremities: No edema the ankles whatsoever. Examination of both shoulders: I do not see any kimberly hematomas or significant bruises. She does get a lot of crackles and winces with any movement of the shoulder joints themselves. Objective Lab Results 10/30/22 05:18 10/30/22 05:18 Meds Allergies and Active Meds Allergies lisinopril Allergy (Verified 10/29/22 20:08) Cough Active Meds: Active Medications Generic Name Dose Route Start Last Admin Trade Name Freq PRN Reason Stop Dose Admin Acetaminophen 650 mg 10/29/22 23:50 10/30/22 16:19 Acetaminophen 325 Mg Tablet PO 10/29/23 23:49 650 mg Q6HR PRN Administration Pain Scale 1 - 3 or fever Hydrocodone Bitart/Acetaminophen 1 tab 10/30/22 17:51 Hydrocodone/Acetaminophen 7.5-325mg Tablet PO Q4H PRN Pain Albuterol 0.63 mg 10/30/22 04:37 Albuterol Neb 2.5 Mg/3 Ml Vial.Neb INHALATION 10/30/23 04:36 QID PRN Shortness Of Breath Albuterol/Ipratropium 1 ml 10/30/22 09:00 10/30/22 14:02 Ipratropium/Albuterol 0.5-3 Mg 3 Ml Ampul.Neb INHALATION 10/30/23 08:59 1 ml QID YESSENIA Administration Aspirin 81 mg 10/30/22 09:00 10/30/22 08:47 Aspirin 81 Mg Tablet. PO 10/30/23 08:59 81 mg DAILY YESSENIA Administration Atorvastatin Calcium 40 mg 10/30/22 21:00 Atorvastatin 40 Mg Tablet PO 10/30/23 20:59 QPM YESSENIA Bisacodyl 10 mg 10/30/22 21:00 Bisacodyl 5 Mg Tablet. PO 10/30/23 20:59 QPM YESSENIA Calcium Acetate 667 mg 10/30/22 08:00 10/30/22 16:19 Calcium Acetate 667 Mg Capsule PO 10/30/23 07:59 667 mg TID.WITH.MEALS YESSENIA Administration Citalopram Hydrobromide 40 mg 10/31/22 09:00 Citalopram 40 Mg Tablet PO 10/31/23 08:59 DAILY YESSENIA Darbepoetin Theodore 60 mcg 10/30/22 10:15 10/30/22 10:16 Darbepoetin Theodore In Polysorbat 60 Mcg/Ml Vial IV-PUSH 10/30/23 10:14 60 mcg We@1015 YESSENIA Administration Dextrose 0 gm 10/29/22 23:56 Dextrose 50% In Water 25 Gm/50 Ml Syringe IV-PUSH 10/29/23 23:55 PRN PRN Hypoglycemia Diclofenac Sodium 4 gm 10/30/22 18:00 Diclofenac Sodium 1% Gel 50 Gm Tube TOPICAL 10/30/23 17:59 QID [facility] Docusate Sodium 100 mg 10/30/22 09:00 10/30/22 08:47 Docusate 100 Mg Capsule PO 10/30/23 08:59 100 mg BID YESSENIA Administration Glucose 0 gm 10/29/22 23:56 Dextrose 40% Gel 15 Gm Tube PO 10/29/23 23:55 PRN PRN Hypoglycemia Glucose 0.6 gm 10/30/22 04:24 Dextrose 40% Gel 15 Gm Tube PO 10/30/23 04:23 PRN PRN Hypoglycemia Heparin Sodium (Porcine) 5,000 unit 10/30/22 09:00 10/30/22 08:47 Heparin 5,000 Unit/Ml Vial SUBCUT 10/30/23 08:59 5,000 unit Q12HR YESSENIA Administration Sodium Chloride 1,000 mls @ 0 mls/hr 10/30/22 09:04 10/30/22 10:17 0.9% Sodium Chloride 1,000 Ml MISCELLANE 10/30/23 09:03 Infused .Q0M PRN Infusion Dialysis As Directed Insulin Aspart 0 units 10/30/22 08:00 10/30/22 16:51 Insulin Aspart 300 Units/3 Ml Insuln.Pen SUBCUT 10/30/23 07:59 Not Given TID.WM.HS [facility] Protocol Isosorbide Mononitrate 60 mg 10/30/22 09:00 Isosorbide Mononitrate 24hr Er 60 Mg Tab.Er.24h PO 10/30/23 08:59 DAILY [facility] Lidocaine 2 patch 10/31/22 09:00 Lidocaine 4% Adh..Patch TOPICAL 10/31/23 08:59 QAM [facility] Midodrine 5 mg 10/30/22 14:15 Midodrine 5 Mg Tablet PO 10/30/23 09:03 MoWeFr@1000 PRN for SBP < 85 Naloxone HCl 0.1 mg 10/29/22 23:50 Naloxone Hcl 0.4 Mg/Ml Vial IV-PUSH 10/29/23 23:49 Q2M PRN Opioid Reversal Non-Formulary Medication 1 tab 10/31/22 09:00 Multivitamin PO 10/31/23 08:59 DAILY [facility] Ondansetron HCl 4 mg 10/29/22 23:50 Ondansetron Odt 4 Mg Tab.Rapdis PO 10/29/23 23:49 Q6HR PRN Nausea And Vomiting Pantoprazole Sodium 40 mg 10/30/22 09:00 10/30/22 08:47 Pantoprazole 40 Mg Tablet. PO 10/30/23 08:59 40 mg DAILY YESSENIA Administration Sennosides 1 tab 10/30/22 09:00 10/30/22 08:47 Sennosides 8.6 Mg Tablet PO 10/30/23 08:59 1 tab BID YESSENIA Administration Sodium Chloride 0 ml 10/29/22 20:02 10/30/22 10:15 Sodium Chloride 0.9 % 10 Ml Syringe IV-PUSH 10/29/23 20:01 10 ml PRN PRN Administration Flush Sodium Chloride 0 ml 10/30/22 06:00 10/30/22 13:26 Sodium Chloride 0.9 % 10 Ml Syringe IV-PUSH 10/30/23 05:59 Not Given QSHIFT YESSENIA Sodium Chloride 0 ml 10/30/22 09:04 Sodium Chloride 0.9 % 10 Ml Syringe IV-PUSH 10/30/23 09:03 PRN PRN Flush Tramadol HCl 50 mg 10/29/22 23:50 10/30/22 07:43 Tramadol 50 Mg Tablet PO 04/27/23 23:49 50 mg Q12H PRN Administration Pain Scale 4 - 7 Vitamin D 25 mcg 10/31/22 09:00 Cholecalciferol 25 Mcg (1,000 Units) Tablet PO 10/31/23 08:59 DAILY [facility] A&P - Hospitalist Assessment/Plan (1) Fall: (2) ESRD (end stage renal disease): (3) Diabetes: (4) COPD (chronic obstructive pulmonary disease): (5) HTN (hypertension): (6) Shoulder pain, bilateral: (7) Nonsustained ventricular tachycardia: (8) ESRD on dialysis: (9) CAD (coronary artery disease): Plan Mechanical fall Acute exacerbation of pain to both shoulders bilaterally. ? Fall precautions ? Consult PT/OT - Pain control -Okay for her to take [place] every 4 hours for the pain. -Voltaren gel applied to both shoulders 4 gm split between the 2 shoulders whichcan be applied 4 times a day scheduled -Lidoderm patches applied to both shoulders which will start tomorrow. Acute on chronic hypoxic respiratory failure ESRD on HD?current creatinine 4.72, patient's last dialysis on Friday -Appreciate nephrology input. Nonsustained ventricular tachycardia. -Patient has completed IV amiodarone infusion. -Continue close monitoring of blood pressure and of her heart rhythm on telemetry. -Cardiology plans adjusting dosage of guideline directed medications including carvedilol over the next couple days Chronic conditions: T2DM?fingersticks ACHS, SSI C COPD?3 L nasal cannula at all times, monitor SPO2, keep greater than 90% HTN- blood pressure soft after Dilaudid in the ER, continue to monitor?resume carvedilol, valsartan, she also takes midodrine on HD days DVT PPx-SCDs, heparin Diet order-1800 ADA, 1500 cc fluid restriction CODE STATUS-full code as discussed with patient Status comment: After discussion with case management this patient meets inpatient status so we have placed the inpatient status order for today Documented By: Carlton Mtz DO 175 Signed By: <Electronically signed by Carlton Mtz DO> 10/30/22 1800 [facility] Work Phone: Progress note Author Narinder Toussaint [facility] October 31, 2022 3:35pm Note Date/Time October 31, 2022 3:35pm [facility] [address] [place] [address] Nephrology Progress Note Signed Patient: Cinthya Wilson MR#: [id number] : 1945 Acct:[id number] Age/Sex: 77 / F Adm Date: 3 Loc: 4P Room: 9J4143-8 Type: ADM IN Attending Dr: Carlton Mtz DO Copies to: ~ Date of Service: 10/31/2022 Subjective Subjective Narrative: Ms. 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 Patient currently gets dialysis at [facility] dialysis unit on MWF schedule. She is on 3 L nasal cannula because of underlying COPD as well. Patient presented to ER on 10/29 after she sustained a fall with left shoulder pain. Patient stated that she tripped while she was in the walker. She hit her head however she denies any loss of consciousness. She denies any chest pain or dizziness. EKG in ER showed sinus rhythm with first-degree AV block and PVCs. CT scan of the head showed mild atrophy with no acute findings. CT of the spine shows no acute fracture. Chest x-ray showed right pleural effusion. Shoulder x-ray showed DJD with no fractures. Labs in the ER showed hyponatremia sodium 127, BUN 63 and creatinine 4.7. Hemoglobin stable 10.7 g/dL. Patient was admitted for further observation and nephrology was consulted at the patient is due for dialysis today. Interval history: Patient had full hemodialysis yesterday with no events. She is currently up in the chair and she feels comfortable apart from pain involving the left shoulder s/p fall as stated above. No reported fractures. Blood pressure 94/51 with no episodes of hypotension. She denies dizziness. She has chronic COPD on 3 L/min nasal oxygen. Hemoglobin stable 9.7 g/dL. Potassium 3.9. Exam Physical Exam Vital Signs: Temp Pulse Resp BP Pulse Ox O2 Del Method O2 Flow Rate 36.5 C 70 20 94/51 L 97 Nasal Cannula 3 10/31/22 11:13 10/31/22 11:47 10/31/22 11:47 10/31/22 11:13 10/31/22 11:13 10/31/22 11:13 10/31/22 11:13 Narrative: Constitutional: Patient looks exhausted with muscle wasting. HEENT: She has mild pallor. Mucous membranes are moist. Cardiovascular: RRR, normal S1-S2, no gallop or rub, No JVD Respiratory: Diminished breath sounds with no crackles or wheezes Gastrointestinal: Soft, non tender, positive bowel sounds. No palpable organs or masses Extremities: 1+ edema Skin: No rashes or bruises Musculoskeletal: Left shoulder tenderness. No swellings or inflammation Neurology: Awake, alert, oriented ?3, No focal motor or sensory deficits. Psych: Normal mood and affect Vascular access: Left arm AV fistula with good thrill. Objective Intake and Output I&O: Intake & Output 10/28/22 10/29/22 10/30/22 10/31/22 23:59 23:59 23:59 23:59 Intake Total 1760 / 1760 650 / 650 Output Total 725 / 725 Balance 1035 / 1035 650 / 650 Weight 64.1 kg 63 kg 64 kg Meds and Allergies Meds: Active Medications Acetaminophen (Acetaminophen 325 Mg Tablet) 650 mg PO Q6HR PRN PRN Reason: Pain Scale 1 - 3 or fever Stop: 10/29/23 23:49 Last Admin: 10/30/22 16:19 Dose: 650 mg Hydrocodone Bitart/Acetaminophen (Hydrocodone/Acetaminophen 7.5-325mg Tablet) 1tab PO Q4H PRN PRN Reason: Pain Last Admin: 10/31/22 08:17 Dose: 1 tab Albuterol (Albuterol Neb 2.5 Mg/3 Ml Vial.Neb) 0.63 mg INHALATION QID PRN PRN Reason: Shortness Of Breath Stop: 10/30/23 04:36 Albuterol/Ipratropium (Ipratropium/Albuterol 0.5-3 Mg 3 Ml Ampul.Neb) 1 ml INHALATION QID YESSENIA Stop: 10/30/23 08:59 Last Admin: 10/31/22 11:46 Dose: 1 ml Aspirin (Aspirin 81 Mg Tablet.) 81 mg PO DAILY YESSENIA Stop: 10/30/23 08:59 Last Admin: 10/31/22 08:17 Dose: 81 mg Atorvastatin Calcium (Atorvastatin 40 Mg Tablet) 40 mg PO QPM YESSENIA Stop: 10/30/23 20:59 Last Admin: 10/30/22 21:47 Dose: 40 mg Bisacodyl (Bisacodyl 5 Mg Tablet.) 10 mg PO QPM YESSENIA Stop: 10/30/23 20:59 Last Admin: 10/30/22 21:47 Dose: 10 mg Calcium Acetate (Calcium Acetate 667 Mg Capsule) 667 mg PO TID.WITH.MEALS [facility] Stop: 10/30/23 07:59 Last Admin: 10/31/22 12:18 Dose: 667 mg Carvedilol (Carvedilol 3.125 Mg Tablet) 3.125 mg PO BID.WITH.MEALS YESSENIA Stop: 10/31/23 16:59 Citalopram Hydrobromide (Citalopram 40 Mg Tablet) 40 mg PO DAILY YESSENIA Stop: 10/31/23 08:59 Last Admin: 10/31/22 08:17 Dose: 40 mg Darbepoetin Theodore (Darbepoetin Theodore In Polysorbat 60 Mcg/Ml Vial) 60 mcg IV-PUSHWe@1015 YESSENIA Stop: 10/30/23 10:14 Last Admin: 10/30/22 10:16 Dose: 60 mcg Dextrose (Dextrose 50% In Water 25 Gm/50 Ml Syringe) 0 gm IV-PUSH PRN PRN PRN Reason: Hypoglycemia Stop: 10/29/23 23:55 Diclofenac Sodium (Diclofenac Sodium 1% Gel 50 Gm Tube) 4 gm TOPICAL QID YESSENIA Stop: 10/30/23 17:59 Last Admin: 10/31/22 14:36 Dose: 4 gm Docusate Sodium (Docusate 100 Mg Capsule) 100 mg PO BID YESSENIA Stop: 10/30/23 08:59 Last Admin: 10/31/22 08:17 Dose: 100 mg Docusate Sodium (Docusate 100 Mg Capsule) 200 mg PO QPM YESSENIA Stop: 10/30/23 20:59 Last Admin: 10/30/22 21:51 Dose: Not Given Glucose (Dextrose 40% Gel 15 Gm Tube) 0 gm PO PRN PRN PRN Reason: Hypoglycemia Stop: 10/29/23 23:55 Glucose (Dextrose 40% Gel 15 Gm Tube) 0.6 gm PO PRN PRN PRN Reason: Hypoglycemia Stop: 10/30/23 04:23 Heparin Sodium (Porcine) (Heparin 5,000 Unit/Ml Vial) 5,000 unit SUBCUT Q12HR YESSENIA Stop: 10/30/23 08:59 Last Admin: 10/31/22 08:17 Dose: 5,000 unit Sodium Chloride (0.9% Sodium Chloride 1,000 Ml) 1,000 mls @ 0 mls/hr MISCELLANE.Q0M PRN PRN Reason: Dialysis Stop: 10/30/23 09:03 Last Infusion: 10/30/22 10:17 Dose: Infused Insulin Aspart (Insulin Aspart 300 Units/3 Ml Insuln.Pen) 0 units SUBCUT TID.WM.HS [facility]; Protocol Stop: 10/30/23 07:59 Last Admin: 10/31/22 12:18 Dose: 2 units Lidocaine (Lidocaine 4% Adh..Patch) 2 patch TOPICAL QAM [facility] Stop: 10/31/23 08:59 Last Admin: 10/31/22 08:17 Dose: 2 patch Midodrine (Midodrine 5 Mg Tablet) 5 mg PO MoWeFr@1000 PRN PRN Reason: for SBP < 85 Stop: 10/30/23 09:03 Multivitamins (Multivitamin 1 Tab Tablet) 1 tab PO DAILY [facility] Stop: 10/31/23 08:59 Last Admin: 10/31/22 08:17 Dose: 1 tab Naloxone HCl (Naloxone Hcl 0.4 Mg/Ml Vial) 0.1 mg IV-PUSH Q2M PRN PRN Reason: Opioid Reversal Stop: 10/29/23 23:49 Ondansetron HCl (Ondansetron Odt 4 Mg Tab.Rapdis) 4 mg PO Q6HR PRN PRN Reason: Nausea And Vomiting Stop: 10/29/23 23:49 Pantoprazole Sodium (Pantoprazole 40 Mg Tablet.Dr) 40 mg PO DAILY [facility] Stop: 10/30/23 08:59 Last Admin: 10/31/22 08:17 Dose: 40 mg Sennosides (Sennosides 8.6 Mg Tablet) 1 tab PO BID [facility] Stop: 10/30/23 08:59 Last Admin: 10/31/22 08:17 Dose: 1 tab Sodium Chloride (Sodium Chloride 0.9 % 10 Ml Syringe) 0 ml IV-PUSH PRN PRN PRN Reason: Flush Stop: 10/29/23 20:01 Last Admin: 10/30/22 10:15 Dose: 10 ml Sodium Chloride (Sodium Chloride 0.9 % 10 Ml Syringe) 0 ml IV-PUSH QSHIFT [facility] Stop: 10/30/23 05:59 Last Admin: 10/31/22 14:32 Dose: 10 ml Sodium Chloride (Sodium Chloride 0.9 % 10 Ml Syringe) 0 ml IV-PUSH PRN PRN PRN Reason: Flush Stop: 10/30/23 09:03 Tramadol HCl (Tramadol 50 Mg Tablet) 50 mg PO Q12H PRN PRN Reason: Pain Scale 4 - 7 Stop: 04/27/23 23:49 Last Admin: 10/30/22 21:46 Dose: 50 mg Vitamin D (Cholecalciferol 25 Mcg (1,000 Units) Tablet) 25 mcg PO DAILY YESSENIA Stop: 10/31/23 08:59 Last Admin: 10/31/22 08:17 Dose: 25 mcg Allergies lisinopril Allergy (Verified 10/29/22 20:08) Cough Results Labs 10/31/22 04:45 10/31/22 04:45 Labs: 10/31/22 04:45 BUN 32 H D Creatinine 2.88 H D Radiology Impressions Impressions - last 24 hours: Any impression(s) listed above is documentation that was entered by the reading physician into a diagnostic report(s) for Cinthya Wilson. I have reviewed the report(s) and am incorporating any findings in the treatment plan of this patient where applicable. A&P - Nephrology Assessment/Plan (1) ESRD (end stage renal disease): Assessment/Problem Details: Patient has ESRD related to DM 2 and atherosclerotic renovascular disease with recurrent CHF. Patient was started hemodialysis on 02/23/2022 with manifestations of uremia and volume overload. [facility] (2) Fall at home: Assessment/Problem Details: Patient had a mechanical fall at home. She denies any dizziness. No evidence of fractures per (3) Anemia: Assessment/Problem Details: Patient has anemia in the setting of advanced CKD. Hemoglobin is variable between 9.5 to 10 g/dL on erythropoietin as outpatient. Patient has a history of diverticulosis with recurrent hemoglobin drop. (4) Systolic and diastolic CHF, acute on chronic: Assessment/Problem Details: CHF is markedly improved after starting dialysis with ultrafiltration. BNP is elevated. She has mild volume overload (5) Diabetes: Assessment/Problem Details: Patient has a history of diabetes with multiple diabetic complications Plan * Patient had full hemodialysis yesterday. No evidence of volume overload. She still on oxygen however that is what has been using at home chronically for COPD. No edema. Blood pressure is on the lower side with no dizziness. * Continue Aranesp 60 mcg weekly with dialysis, 1 dose was given yesterday with dialysis. * Continue calcium acetate 667 mg with each meal * All medications were reviewed. Cardiology added carvedilol low-dose 3.125 mg twice a day for intermittent PVCs. Blood pressure is relatively low. Okay to stop valsartan. Patient may continue furosemide to maintain residual renal function. * Monitor daily intake and output and renal panel. Next hemodialysis will be Friday per her schedule if the patient still in house. She is stable from renal point to be discharged at any time. Documented By: Narinder Toussaint MD 10/31/22 1530 Signed By: <Electronically signed by MD Narinder Toussaint> 10/31/22 6911 [facility] Work Phone: Progress note Author Edie Michel [facility] October 31, 2022 4:31pm Note Date/Time October 31, 2022 4:21pm [facility] [address] [place] [address] Cardiology Progress Note Signed Patient: Cinthya Wilson MR#: [id number] : 1945 Acct:[id number] Age/Sex: 77 / F Adm Date: 3 Loc: Room: [address] [place] [address] Type: ADM IN Attending Dr: Carlton Mtz DO Copies to: ~ Date of Service: 10/31/2022 Subjective Interval history: - No acute events overnight. BP has been stable. - No runs of NSVT noted on telemetry- few triplets. - Pt reports feeling significantly better today. Exam Physical Exam Vital Signs: Temp Pulse Resp BP Pulse Ox O2 Del Method O2 Flow Rate 97.7 F 78 16 100/62 98 Nasal Cannula 3 10/31/22 11:13 10/31/22 15:51 10/31/22 15:51 10/31/22 15:51 10/31/22 15:51 10/31/22 15:51 10/31/22 15:51 Const General: no acute distress and ill appearing Orientation: alert, awake and oriented x3 Eyes EOM: EOM intact bilaterally Resp Effort & Inspection: normal respiratory effort and able to speak in complete sentences Auscultation: clear to auscultation bilaterally Cardio Jugular venous pressure: no JVD Heart Sounds: S1 normal, S2 normal, no gallops, no murmurs and no rubs Skin Hair: general thinning and patchy alopecia Neuro General: patient alert, patient awake, patient oriented x3 and no focal motor deficits Psych Appearance: grossly normal Objective Labs 10/31/22 04:45 10/31/22 04:45 Labs: Laboratory Results - last 24 hr 10/30/22 10/30/22 10/31/22 16:43 21:54 04:45 Corrected WBC 5.4 Uncorrected WBC Count 5.4 RBC 3.25 L Hgb 9.7 L Hct 30.1 L MCV 92.4 MCH 29.8 MCHC 32.3 RDW 16.4 H Plt Count 300 MPV 7.6 Neut % (Auto) 61.2 Lymph % (Auto) 19.6 [place] % (Auto) 13.8 Eos % (Auto) 4.7 Baso % (Auto) 0.7 Nucleat RBC Rel Count 0.0 Neut # (Auto) 3.3 Lymph # (Auto) 1.1 [place] # (Auto) 0.7 Eos # (Auto) 0.3 Baso # (Auto) 0.0 PHA Creatinine Clear Sodium Potassium Chloride Carbon Dioxide Anion Gap BUN Creatinine Est GFR (CKD-EPI) Glucose POC Glucose 139 181 POC Glucose Comment Glu2: cleaned meter Calcium 10/31/22 10/31/22 10/31/22 04:45 07:50 11:26 Corrected WBC Uncorrected WBC Count RBC Hgb Hct MCV MCH MCHC RDW Plt Count MPV Neut % (Auto) Lymph % (Auto) [place]hen[place] % (Auto) Eos % (Auto) Baso % (Auto) Nucleat RBC Rel Count Neut # (Auto) Lymph # (Auto) [place]hen[place] # (Auto) Eos # (Auto) Baso # (Auto) PHA Creatinine Clear 14.57 Sodium 130 L Potassium 3.9 Chloride 91 L Carbon Dioxide 29.9 Anion Gap 13.0 BUN 32 H D Creatinine 2.88 H D Est GFR (CKD-EPI) 16.510 Glucose 147 H POC Glucose 134 223 POC Glucose Comment Calcium 9.3 A&P - Cardiology (1) Nonsustained ventricular tachycardia: Assessment/Problem Details: 77 year old female with past medical history significant for CAD status post PCIx1 about 10 years ago in [place], ESRD on HD, hypertension, hyperlipidemia, CHF, COPD on 3 L nasal cannula who presented to the ED with left shoulder pain after sustaining a mechanical fal kiddingly l and was found to have multiple runs of nonsustained VT and hypotension. Code(s): I47.29 - Other ventricular tachycardia Status: Acute Plan: -Asymptomatic runs of nonsustained VT. No signs of active ongoing ischemia. -Improved on beta-blockers. Continue carvedilol 3.125 mg twice daily -Keep potassium >4 and magnesium >2 (2) CAD (coronary artery disease): Assessment/Problem Details: Stable CAD. Asymptomatic. Code(s): I25.10 - Atherosclerotic heart disease of [place] coronary artery without angina pectoris Status: Acute Plan: -Imdur discontinued from the office due to hypotension. Continue aspirin 81 mg daily, Carvedilol 3.125mg BID and Lipitor 40 mg daily -Office records from [facility] reviewed. (3) Systolic and diastolic CHF, acute on chronic: Assessment/Problem Details: NYHA class II. ACC stage C. Euvolemic Code(s): I50.43 - Acute on chronic combined systolic (congestive) and diastolic (congestive) heart failure Status: Acute Plan - Records from [facility] revealed EF of 45% with mildly dilated LV and mild global hypokinesis in July 2022. -Holding valsartan due to hypotension. Continue carvedilol 3.125 mg twice daily. Continue Lasix as directed by nephrology. -Continue volume management via HD -Follow-up with [facility] cardiology in 1 month after discharge -We will sign off please call with questions. Documented By: Edie Michel MD 10/31/22 1617 Signed By: <Electronically signed by Edie Michel MD> 10/31/22 1631 [facility] Work Phone: Progress note No data available for this section [facility] Author Tatiana Loya [facility] December 30, 2022 11:46am Note Date/Time December 30, 2022 11:46am [facility] [address] [place] [address] Hospitalist Progress Note Signed Patient: Cinthya Wilson MR#: [id number] : 1945 Acct:[id number] Age/Sex: 77 / F Adm Date: 3 Loc: Room: [address] [place] [address] Type: ADM IN Attending Dr: Tatiana Loya MD Copies to: ~ Date of Service: 12/30/2022 Exam Physical Exam Vital Signs: Temp Pulse Resp BP Pulse Ox O2 Del Method O2 Flow Rate 97.4 F L 54 L 29 H 118/55 L 93 L Nasal Cannula 3 12/30/22 09:20 12/30/22 11:00 12/30/22 11:00 12/30/22 11:00 12/30/22 11:00 12/30/22 11:00 12/30/22 11:00 Narrative: General patient laying in bed in no acute distress alert awake oriented x3 HEENT PERRLA Neck supple no JVD no carotid bruit CVS S1-S2 regular rate and rhythm no murmur no gallop Chest clear to auscultation percussion Abdomen soft bowel sounds normoactive no rebound no guarding Extremities no stenosis no clubbing no edema Musculoskeletal exam normal no joint effusion Neurologic exam oriented x3 alert awake no focal left Psychiatry: Normal insight and judgment Skin: no rash or lesions Objective Lab Results 12/30/22 06:45 12/30/22 06:45 Microbiology Results Microbiology 12/30/22 09:05 Stool Stool Occult Blood (TRINITY) - Final 12/30/22 06:50 Nasopharyngeal Respiratory Panel (PCR) - Final 12/29/22 22:12 Nasopharyngeal SARS-CoV-2, Influenza & RSV (PCR) - Final Meds Allergies and Active Meds Allergies lisinopril Allergy (Verified 12/06/22 18:31) Cough Active Meds: Active Medications Generic Name Dose Route Start Last Admin Trade Name Freq PRN Reason Stop Dose Admin Acetaminophen 650 mg 12/30/22 02:49 Acetaminophen 325 Mg Tablet PO 12/30/23 02:48 Q6HR PRN Pain Scale 1 - 3 or fever Albuterol 0.63 mg 12/30/22 03:53 Albuterol Neb 2.5 Mg/3 Ml Vial.Neb INHALATION 12/30/23 03:52 QID PRN Shortness Of Breath Atorvastatin Calcium 40 mg 12/30/22 21:00 Atorvastatin 40 Mg Tablet PO 12/30/23 20:59 QPM YESSENIA Bisacodyl 5 mg 12/30/22 03:23 Bisacodyl 5 Mg Tablet. PO 12/30/23 03:22 BID PRN Constipation Calcium Acetate 667 mg 12/30/22 08:00 12/30/22 08:02 Calcium Acetate 667 Mg Capsule PO 12/30/23 07:59 667 mg TID.WITH.MEALS YESSENIA Administration Citalopram Hydrobromide 40 mg 12/30/22 09:00 12/30/22 08:20 Citalopram 40 Mg Tablet PO 12/30/23 08:59 40 mg DAILY YESSENIA Administration Darbepoetin Theodore 80 mcg 01/01/23 08:29 Darbepoetin Theodore In Polysorbat 60 Mcg/Ml Vial IV-PUSH 01/01/24 08:28 WE YESSENIA Dextrose 0 gm 12/30/22 03:23 Dextrose 50% In Water 25 Gm/50 Ml Syringe IV-PUSH 12/30/23 03:22 PRN PRN Hypoglycemia Diclofenac Sodium 4 gm 12/30/22 09:00 12/30/22 08:20 Diclofenac Sodium 1% Gel 100 Gm Tube TOPICAL 12/30/23 08:59 4 gm QID YESSENIA Administration Docusate Sodium 100 mg 12/30/22 09:00 12/30/22 08:20 Docusate 100 Mg Capsule PO 12/30/23 08:59 100 mg BID YESSENIA Administration Ferric Sodium Gluconate Complex 125 mg 12/30/22 09:00 12/30/22 10:03 Sodium Ferric Gluconat/Sucrose 62.5 Mg/5 Ml Vial IV-PUSH 12/30/23 08:59 125mg Mo@0900 YESSENIA Administration Furosemide 60 mg 12/30/22 09:00 12/30/22 08:20 Furosemide 20 Mg Tablet PO 12/30/23 08:59 60 mg BID@0800,1700 YESSENIA Administration Glucose 0.6 gm 12/30/22 03:22 Dextrose 40% Gel 15 Gm Tube PO 12/30/23 03:21 PRN PRN Hypoglycemia Glucose 0 gm 12/30/22 03:23 Dextrose 40% Gel 15 Gm Tube PO 12/30/23 03:22 PRN PRN Hypoglycemia Heparin Sodium (Porcine) 2,000 unit 12/30/22 08:29 12/30/22 10:02 Heparin 10,000 Unit/10 Ml Vial IV 12/30/23 08:28 2,000 unit PRN PRN Administration Dialysis Heparin Sodium (Porcine) 1,000 unit 12/30/22 08:29 12/30/22 10:02 Heparin 10,000 Unit/10 Ml Vial IV 12/30/23 08:28 1,000 unit PRN PRN Administration Dialysis Sodium Chloride 1,000 mls @ 0 mls/hr 12/30/22 08:29 12/30/22 10:05 0.9% Sodium Chloride 1,000 Ml MISCELLANE 12/30/23 08:28 Infused .Q0M PRN Infusion Dialysis As Directed Insulin Aspart 0 units 12/30/22 08:00 12/30/22 08:02 Insulin Aspart 300 Units/3 Ml Insuln.Pen SUBCUT 12/30/23 07:59 Not Given TID.WM.HS YESSENIA Protocol Midodrine 5 mg 12/30/22 03:22 Midodrine 5 Mg Tablet PO 12/30/23 03:21 TID.7A.12P.5P PRN Hypotension Multivitamins 1 tab 12/30/22 09:00 12/30/22 08:20 Multivitamin 1 Tab Tablet PO 12/30/23 08:59 1 tab DAILY YESSENIA Administration Oxycodone/Acetaminophen 1 tab 12/30/22 03:22 Oxycodone/Acetaminophen 5-325 Mg Tablet PO Q6HR PRN Pain Pantoprazole Sodium 40 mg 12/30/22 09:00 12/30/22 08:20 Pantoprazole 40 Mg Tablet.Dr PO 12/30/23 08:59 40 mg DAILY YESSENIA Administration Pramipexole Dihydrochloride 0.5 mg 12/30/22 22:00 Pramipexole 0.5 Mg Tablet PO 12/30/23 21:59 QHS YESSENIA Saliva Substitute 0 ml 12/30/22 02:59 Saliva Stimulant Agents Comb.3 44.3 Ml [place] MUCOUS MEM 12/30/23 02:58 PRN PRN Dry Mouth Sennosides 2 tab 12/30/22 22:00 Sennosides 8.6 Mg Tablet PO 12/30/23 21:59 QHS YESSENIA Sodium Chloride 0 ml 12/29/22 22:03 12/30/22 10:03 Sodium Chloride 0.9 % 10 Ml Syringe IV-PUSH 12/29/23 22:02 10 ml PRN PRN Administration Flush Sodium Chloride 0 ml 12/30/22 06:00 12/30/22 06:29 Sodium Chloride 0.9 % 10 Ml Syringe IV-PUSH 12/30/23 05:59 10 ml QSHIFT YESSENIA Administration Sodium Chloride 0 ml 12/30/22 08:29 Sodium Chloride 0.9 % 10 Ml Syringe IV-PUSH 12/30/23 08:28 PRN PRN Flush Vitamin D 25 mcg 12/30/22 09:00 12/30/22 08:20 Cholecalciferol 25 Mcg (1,000 Units) Tablet PO 12/30/23 08:59 25 mcg DAILY YESSENIA Administration A&P - Hospitalist Assessment/Plan (1) Weakness: (2) Swollen tongue: (3) Symptomatic bradycardia: (4) Anemia: (5) Diabetes: (6) COPD (chronic obstructive pulmonary disease): (7) CAD (coronary artery disease): (8) Recurrent right pleural effusion: (9) Type 2 diabetes mellitus with diabetic chronic kidney disease: (10) Fever: Plan Assessment/Plan. This is a 77-year-old woman came emergency room today because she is getting very weak at home. She is also having shortness of breath. Things were gettingmuch worse today during the daytime on Friday. Reportedly she slept all day. She was having a little bit of a fever. In the emergency room she seemed to have pain everywhere throughout her body. She was very weak. She almost fell just getting out of bed to the bedside commode. She is a longstanding hemodialysis patient for end-stage renal disease. She hasa history of coronary artery disease status post stenting about 10 years ago andhas heart failure with reduced ejection fraction. She also has hypertension, she has COPD and chronic hypoxic respiratory failure chronically using 3 L oxygen by nasal cannula, she has GERD, and she has diabetes mellitus type 2 on insulin. She has had recent stays here in the hospital from December 08 through December 09when she was having a wide-complex rhythm and was evaluated by cardiology. She returned on December 13 through December 16 with bradycardia. At that time cardiology recommended amiodarone to suppress bigeminy and short nonsustained runs of ventricular tachycardia but they also recommended cessation of her beta-madhu due to bradycardia. She is not anticoagulated. She is chronically hypotensive and requires midodrine especially on dialysis days. Upon arrival up to the medical floor it was noted that her heart rate is very slow at about 43 bpm. Nursing staff on the medical floor also noticed that her tongue seems to be enlarged and somewhat swollen. Patient indicates that she had noticed that her tongue was bigger because she was biting it more often. She made an appointment to see a dentist about this in a couple weeks. She was started on buspirone 10 mg daily and gabapentin 100 mg p.o. twice daily just on December 26, so that was about 3 to 4 days ago. Also, looking at her OARRS report, she was upgraded from chronic use of hydrocodone product such as [place] 10/325 up to Percocet 5/325 enough for 4 tablets a day. Looking at her OARRS report I never saw her picking up gabapentin before. Notably her hemoglobin in the emergency room today was only 8.8. When she left the hospital on December 16 it was in its baseline of 10.4. The patient states that she has been constipated and has not moved her bowels for the last 4 days. A/P Sinus bradycardia Seen and examined Not feeling well Feeling very weak Slight nausea No chest pain or shortness of breath Now on dialysis Heart rate in the 40s Beta-madhu was held Amiodarone was held Cardiology consulted She may need pacemaker Profound fatigue and weakness secondary to bradycardia Cardiology was consulted Swollen/enlarged tongue. Gabapentin and BuSpar were held Anemia of chronic disease : Hemoglobin and hematocrit was CAD: Aspirin daily/cardiology was consulted Hypertension: Controlled Hyperlipidemia: Continue statin Diabetes type: Insulin sliding scale Obesity: Lifestyle modification Sleep apnea: CPAP GERD: PPI Documented By: Tatiana Loya MD 12/30/22 1132 Signed By: <Electronically signed by Tatiana Loya MD> 12/30/22 1146 [facility] Work Phone: Progress note Author Tatiana Loya [facility] December 31, 2022 11:33am Note Date/Time December 31, 2022 11:33am [facility] [address] [place] [address] Hospitalist Progress Note Signed Patient: Cinthya Wilson MR#: [id number] : 1945 Acct:[id number] Age/Sex: 77 / F Adm Date: 3 Loc: Room: 2S9411-5 Type: ADM IN Attending Dr: Tatiana Loya MD Copies to: ~ Date of Service: 12/31/2022 Subjective Subjective Narrative: Seen and examined Clinically better No more pain No chest pain or SOB Exam Physical Exam Vital Signs: Temp Pulse Resp BP Pulse Ox O2 Del Method O2 Flow Rate 98.2 F 52 L 20 128/60 99 Nasal Cannula 3 12/31/22 08:00 12/31/22 10:00 12/31/22 10:00 12/31/22 10:00 12/31/22 10:00 12/31/22 10:00 12/31/22 10:00 Narrative: General patient laying in bed in no acute distress alert awake oriented x3 HEENT PERRLA Neck supple no JVD no carotid bruit CVS S1-S2 regular rate and rhythm no murmur no gallop Chest clear to auscultation percussion Abdomen soft bowel sounds normoactive no rebound no guarding Extremities no stenosis no clubbing no edema Musculoskeletal exam normal no joint effusion Neurologic exam oriented x3 alert awake no focal left Psychiatry: Normal insight and judgment Skin: no rash or lesions Objective Lab Results 12/31/22 04:07 12/31/22 04:07 Microbiology Results Microbiology 12/29/22 22:37 Blood - Right Forearm Blood Culture - Preliminary No Growth 1 Day 12/29/22 22:20 Blood - Right Antecubital Blood Culture - Preliminary No Growth 1 Day 12/30/22 09:05 Stool Stool Occult Blood ([facility]INITY) - Final 12/30/22 06:50 Nasopharyngeal Respiratory Panel (PCR) - Final Meds Allergies and Active Meds Allergies lisinopril Allergy (Verified 12/06/22 18:31) Cough Active Meds: Active Medications Generic Name Dose Route Start Last Admin Trade Name Freq PRN Reason Stop Dose Admin Acetaminophen 650 mg 12/30/22 02:49 Acetaminophen 325 Mg Tablet PO 12/30/23 02:48 Q6HR PRN Pain Scale 1 - 3 or fever Albuterol 0.63 mg 12/30/22 03:53 Albuterol Neb 2.5 Mg/3 Ml Vial.Neb INHALATION 12/30/23 03:52 QID PRN Shortness Of Breath Atorvastatin Calcium 40 mg 12/30/22 21:00 12/30/22 22:13 Atorvastatin 40 Mg Tablet PO 12/30/23 20:59 40 mg QPM YESSENIA Administration Bisacodyl 5 mg 12/30/22 03:23 Bisacodyl 5 Mg Tablet. PO 12/30/23 03:22 BID PRN Constipation Calcium Acetate 667 mg 12/30/22 08:00 12/31/22 08:37 Calcium Acetate 667 Mg Capsule PO 12/30/23 07:59 667 mg TID.WITH.MEALS YESSENIA Administration Citalopram Hydrobromide 40 mg 12/30/22 09:00 12/31/22 08:37 Citalopram 40 Mg Tablet PO 12/30/23 08:59 40 mg DAILY YESSENIA Administration Darbepoetin Theodore 80 mcg 01/01/23 08:29 Darbepoetin Theodore In Polysorbat 60 Mcg/Ml Vial IV-PUSH 01/01/24 08:28 WE YESSENIA Dextrose 0 gm 12/30/22 03:23 Dextrose 50% In Water 25 Gm/50 Ml Syringe IV-PUSH 12/30/23 03:22 PRN PRN Hypoglycemia Diclofenac Sodium 4 gm 12/30/22 09:00 12/31/22 08:44 Diclofenac Sodium 1% Gel 100 Gm Tube TOPICAL 12/30/23 08:59 Not Given QID [facility] Docusate Sodium 100 mg 12/30/22 09:00 12/31/22 08:37 Docusate 100 Mg Capsule PO 12/30/23 08:59 100 mg BID YESSENIA Administration Ferric Sodium Gluconate Complex 125 mg 12/30/22 09:00 12/30/22 10:03 Sodium Ferric Gluconat/Sucrose 62.5 Mg/5 Ml Vial IV-PUSH 12/30/23 08:59 125mg Mo@0900 YESSENIA Administration Furosemide 60 mg 12/30/22 09:00 12/31/22 08:37 Furosemide 20 Mg Tablet PO 12/30/23 08:59 60 mg BID@0800,1700 YESSENIA Administration Glucose 0.6 gm 12/30/22 03:22 Dextrose 40% Gel 15 Gm Tube PO 12/30/23 03:21 PRN PRN Hypoglycemia Glucose 0 gm 12/30/22 03:23 Dextrose 40% Gel 15 Gm Tube PO 12/30/23 03:22 PRN PRN Hypoglycemia Heparin Sodium (Porcine) 2,000 unit 12/30/22 08:29 12/30/22 10:02 Heparin 10,000 Unit/10 Ml Vial IV 12/30/23 08:28 2,000 unit PRN PRN Administration Dialysis Heparin Sodium (Porcine) 1,000 unit 12/30/22 08:29 12/30/22 10:02 Heparin 10,000 Unit/10 Ml Vial IV 12/30/23 08:28 1,000 unit PRN PRN Administration Dialysis Sodium Chloride 1,000 mls @ 0 mls/hr 12/30/22 08:29 12/30/22 10:05 0.9% Sodium Chloride 1,000 Ml MISCELLANE 12/30/23 08:28 Infused .Q0M PRN Infusion Dialysis As Directed Insulin Aspart 0 units 12/30/22 08:00 12/31/22 08:44 Insulin Aspart 300 Units/3 Ml Insuln.Pen SUBCUT 12/30/23 07:59 3 units TID.WM.HS YESSENIA Administration Protocol Midodrine 5 mg 12/30/22 03:22 Midodrine 5 Mg Tablet PO 12/30/23 03:21 TID.7A.12P.5P PRN Hypotension Multivitamins 1 tab 12/30/22 09:00 12/31/22 08:37 Multivitamin 1 Tab Tablet PO 12/30/23 08:59 1 tab DAILY YESSENIA Administration Oxycodone/Acetaminophen 1 tab 12/30/22 03:22 12/30/22 16:50 Oxycodone/Acetaminophen 5-325 Mg Tablet PO 1 tab Q6HR PRN Administration Pain Pantoprazole Sodium 40 mg 12/30/22 09:00 12/31/22 08:37 Pantoprazole 40 Mg Tablet.Dr PO 12/30/23 08:59 40 mg DAILY YESSENIA Administration Polyethylene Glycol 17 gm 12/31/22 09:00 12/31/22 08:37 Polyethylene Glycol 3350 17 Gm Powd.Pack PO 12/31/23 08:59 Not Given BID YESSENIA Pramipexole Dihydrochloride 0.5 mg 12/30/22 22:00 12/30/22 22:13 Pramipexole 0.5 Mg Tablet PO 12/30/23 21:59 0.5 mg QHS YESSENIA Administration Prednisone 40 mg 12/30/22 13:30 12/31/22 08:37 Prednisone 20 Mg Tablet PO 12/30/23 13:29 40 mg DAILY YESSENIA Administration Saliva Substitute 0 ml 12/30/22 02:59 Saliva Stimulant Agents Comb.3 44.3 Ml [place] MUCOUS MEM 12/30/23 02:58 PRN PRN Dry Mouth Sennosides 2 tab 12/30/22 22:00 12/30/22 22:13 Sennosides 8.6 Mg Tablet PO 12/30/23 21:59 2 tab QHS YESSENIA Administration Sodium Chloride 0 ml 12/29/22 22:03 12/30/22 10:03 Sodium Chloride 0.9 % 10 Ml Syringe IV-PUSH 12/29/23 22:02 10 ml PRN PRN Administration Flush Sodium Chloride 0 ml 12/30/22 06:00 12/31/22 08:25 Sodium Chloride 0.9 % 10 Ml Syringe IV-PUSH 12/30/23 05:59 Not Given QSHIFT YESSENIA Sodium Chloride 0 ml 12/30/22 08:29 Sodium Chloride 0.9 % 10 Ml Syringe IV-PUSH 12/30/23 08:28 PRN PRN Flush Vitamin D 25 mcg 12/30/22 09:00 12/31/22 08:37 Cholecalciferol 25 Mcg (1,000 Units) Tablet PO 12/30/23 08:59 25 mcg DAILY YESSENIA Administration A&P - Hospitalist Assessment/Plan (1) Weakness: (2) Swollen tongue: (3) Symptomatic bradycardia: (4) Anemia: (5) Diabetes: (6) COPD (chronic obstructive pulmonary disease): (7) CAD (coronary artery disease): (8) Recurrent right pleural effusion: (9) Type 2 diabetes mellitus with diabetic chronic kidney disease: (10) Fever: Plan Assessment/Plan. This is a 77-year-old woman came emergency room today because she is getting very weak at home. She is also having shortness of breath. Things were gettingmuch worse today during the daytime on Friday. Reportedly she slept all day. She was having a little bit of a fever. In the emergency room she seemed to have pain everywhere throughout her body. She was very weak. She almost fell just getting out of bed to the bedside commode. She is a longstanding hemodialysis patient for end-stage renal disease. She hasa history of coronary artery disease status post stenting about 10 years ago andhas heart failure with reduced ejection fraction. She also has hypertension, she has COPD and chronic hypoxic respiratory failure chronically using 3 L oxygen by nasal cannula, she has GERD, and she has diabetes mellitus type 2 on insulin. She has had recent stays here in the hospital from December 08 through December 09when she was having a wide-complex rhythm and was evaluated by cardiology. She returned on December 13 through December 16 with bradycardia. At that time cardiology recommended amiodarone to suppress bigeminy and short nonsustained runs of ventricular tachycardia but they also recommended cessation of her beta-madhu due to bradycardia. She is not anticoagulated. She is chronically hypotensive and requires midodrine especially on dialysis days. Upon arrival up to the medical floor it was noted that her heart rate is very slow at about 43 bpm. Nursing staff on the medical floor also noticed that her tongue seems to be enlarged and somewhat swollen. Patient indicates that she had noticed that her tongue was bigger because she was biting it more often. She made an appointment to see a dentist about this in a couple weeks. She was started on buspirone 10 mg daily and gabapentin 100 mg p.o. twice daily just on December 26, so that was about 3 to 4 days ago. Also, looking at her OARRS report, she was upgraded from chronic use of hydrocodone product such as [place] 10/325 up to Percocet 5/325 enough for 4 tablets a day. Looking at her OARRS report I never saw her picking up gabapentin before. Notably her hemoglobin in the emergency room today was only 8.8. When she left the hospital on December 16 it was in its baseline of 10.4. The patient states that she has been constipated and has not moved her bowels for the last 4 days. A/P Sinus bradycardia History of Non sustained VT Seen and examined Doing much better today No complaints HR is better Keep holding Beta madhu Resume Amiodarone PO 200 mg daily Cardiology is following Nephrology is following Profound fatigue and weakness secondary to bradycardia Improving Swollen/enlarged tongue Thrush: Nystatin PO swish and wash Anemia of chronic disease : Hemoglobin and hematocrit was CAD: Aspirin daily/cardiology was consulted Hypertension: Controlled Hyperlipidemia: Continue statin Diabetes type: Insulin sliding scale Obesity: Lifestyle modification Sleep apnea: CPAP GERD: PPI Documented By: Tatiana Loya MD 12/31/22 1125 Signed By: <Electronically signed by Tatiana Loya MD> 12/31/22 1131 [facility] Work Phone: Progress note Author Narinder Toussaint [facility] December 31, 2022 12:23pm Note Date/Time December 31, 2022 12:18pm [facility] [address] [place] [address] Nephrology Progress Note Signed Patient: Cinthya Wilson MR#: [id number] : 1945 Acct:[id number] Age/Sex: 77 / F Adm Date: 3 Loc: Room: 6G0722-8 Type: ADM IN Attending Dr: Tatiana Loya MD Copies to: ~ Date of Service: 12/31/2022 Subjective Subjective Narrative: Ms. 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 Patient currently gets dialysis at [facility] dialysis unit on MWF schedule. Patient had recent admission on December 07 for syncopal episode and she was found to have episodes of nonsustained V. tach with prolonged QT interval. She was evaluated by cardiology on several occasions, first carvedilol switched to metoprolol however because of bradycardia and persistent current nonsustained V. tach, she was started on amiodarone with holding metoprolol. Patient was informed that she will need a pacemaker as outpatient and she was supposed to follow-up with cardiology by the end of this month. Evaluation in ER showed bradycardia 30s to40/min. Hemoglobin was down to 8.5 g/dL compared to 10.4 on December 16. Patient is not on anticoagulation. Patient came to the ER because of persistent weakness and almost fell just getting out of the bed to the bedside commode. She stated that she has pain allover her body involving the joints and bone. Recently her narcotics was upgraded to oxycodone every 6 hours. Patient has COPD with chronic hypoxemic respiratory failure on 3 L oxygen at home. Patient is due for dialysis today hence nephrology was consulted. Interval history: Patient was started on prednisone yesterday by Dr. Simpson for concern about polymyalgia rheumatica inducing significant bone and muscle pain. She had significant improvement over the last 24 hours. Blood pressure also has improved 128/60 and pulse 52/min. Patient had full hemodialysis yesterday with no events. Today potassium 3.8 mmol/L. No acidosis. Cardiac event monitor was reviewed by Dr. Escobar. Patient had 5 tracing was sent for review all demonstrate normal sinus rhythm with normal heart rate however one of the strips demonstrate high-grade AV block with a 3-1 AV conduction and 3.1-second pause this was not asymptomatic. Exam Physical Exam Vital Signs: Temp Pulse Resp BP Pulse Ox O2 Del Method O2 Flow Rate 36.8 C 52 L 20 128/60 99 Nasal Cannula 3 12/31/22 08:00 12/31/22 10:00 12/31/22 10:00 12/31/22 10:00 12/31/22 10:00 12/31/22 10:00 12/31/22 10:00 Narrative: Constitutional: Up in the bed, awake with no respiratory distress, she is on chronic home oxygen for COPD. HEENT: She has mild pallor. Mucous membranes are moist. Cardiovascular: RRR, normal S1-S2, no gallop or rub, No JVD Respiratory: Diminished breath sounds. No crackles or wheezes. Gastrointestinal: Soft, non tender, positive bowel sounds. No palpable organs or masses Extremities: 1+ edema Skin: No rashes or bruises Musculoskeletal: Muscle tenderness has improved. Neurology: Awake, alert, oriented ?3, No focal motor or sensory deficits. Psych: Normal mood and affect Vascular access: Left arm AV fistula with good thrill. Objective Intake and Output I&O: Intake & Output 12/28/22 12/29/22 12/30/22 12/31/22 23:59 23:59 23:59 23:59 Intake Total 1310 / 1310 200 / 200 Output Total 2503 / 2503 0 / 0 Balance -1193 / -1193 200 / 200 Weight 63.3 kg 63.4 kg 60.4 kg Meds and Allergies Meds: Active Medications Acetaminophen (Acetaminophen 325 Mg Tablet) 650 mg PO Q6HR PRN PRN Reason: Pain Scale 1 - 3 or fever Stop: 12/30/23 02:48 Albuterol (Albuterol Neb 2.5 Mg/3 Ml Vial.Neb) 0.63 mg INHALATION QID PRN PRN Reason: Shortness Of Breath Stop: 12/30/23 03:52 Amiodarone HCl (Amiodarone 200 Mg Tablet) 200 mg PO DAILY YESSENIA Stop: 12/31/23 11:59 Last Admin: 12/31/22 11:55 Dose: Not Given Atorvastatin Calcium (Atorvastatin 40 Mg Tablet) 40 mg PO QPM YESSENIA Stop: 12/30/23 20:59 Last Admin: 12/30/22 22:13 Dose: 40 mg Bisacodyl (Bisacodyl 5 Mg Tablet.Dr) 5 mg PO BID PRN PRN Reason: Constipation Stop: 12/30/23 03:22 Calcium Acetate (Calcium Acetate 667 Mg Capsule) 667 mg PO TID.WITH.MEALS [facility] Stop: 12/30/23 07:59 Last Admin: 12/31/22 11:55 Dose: 667 mg Citalopram Hydrobromide (Citalopram 40 Mg Tablet) 40 mg PO DAILY YESSENIA Stop: 12/30/23 08:59 Last Admin: 12/31/22 08:37 Dose: 40 mg Darbepoetin Theodore (Darbepoetin Theodore In Polysorbat 60 Mcg/Ml Vial) 80 mcg IV- PUSHWE [facility] Stop: 01/01/24 08:28 Dextrose (Dextrose 50% In Water 25 Gm/50 Ml Syringe) 0 gm IV-PUSH PRN PRN PRN Reason: Hypoglycemia Stop: 12/30/23 03:22 Diclofenac Sodium (Diclofenac Sodium 1% Gel 100 Gm Tube) 4 gm TOPICAL QID YESSENIA Stop: 12/30/23 08:59 Last Admin: 12/31/22 08:44 Dose: Not Given Docusate Sodium (Docusate 100 Mg Capsule) 100 mg PO BID [facility] Stop: 12/30/23 08:59 Last Admin: 12/31/22 08:37 Dose: 100 mg Ferric Sodium Gluconate Complex (Sodium Ferric Gluconat/Sucrose 62.5 Mg/5 Ml Vial) 125 mg IV-PUSH Mo@0900 [facility] Stop: 12/30/23 08:59 Last Admin: 12/30/22 10:03 Dose: 125 mg Furosemide (Furosemide 20 Mg Tablet) 60 mg PO BID@0800,1700 [facility] Stop: 12/30/23 08:59 Last Admin: 12/31/22 08:37 Dose: 60 mg Glucose (Dextrose 40% Gel 15 Gm Tube) 0.6 gm PO PRN PRN PRN Reason: Hypoglycemia Stop: 12/30/23 03:21 Glucose (Dextrose 40% Gel 15 Gm Tube) 0 gm PO PRN PRN PRN Reason: Hypoglycemia Stop: 12/30/23 03:22 Heparin Sodium (Porcine) (Heparin 10,000 Unit/10 Ml Vial) 2,000 unit IV PRN PRN PRN Reason: Dialysis Stop: 12/30/23 08:28 Last Admin: 12/30/22 10:02 Dose: 2,000 unit Heparin Sodium (Porcine) (Heparin 10,000 Unit/10 Ml Vial) 1,000 unit IV PRN PRN PRN Reason: Dialysis Stop: 12/30/23 08:28 Last Admin: 12/30/22 10:02 Dose: 1,000 unit Sodium Chloride (0.9% Sodium Chloride 1,000 Ml) 1,000 mls @ 0 mls/hr MISCELLANE.Q0M PRN PRN Reason: Dialysis Stop: 12/30/23 08:28 Last Infusion: 12/30/22 10:05 Dose: Infused Insulin Aspart (Insulin Aspart 300 Units/3 Ml Insuln.Pen) 0 units SUBCUT TID.WM.HS [facility]; Protocol Stop: 12/30/23 07:59 Last Admin: 12/31/22 11:55 Dose: 3 units Midodrine (Midodrine 5 Mg Tablet) 5 mg PO TID.7A.12P.5P PRN PRN Reason: Hypotension Stop: 12/30/23 03:21 Multivitamins (Multivitamin 1 Tab Tablet) 1 tab PO DAILY YESSENIA Stop: 12/30/23 08:59 Last Admin: 12/31/22 08:37 Dose: 1 tab Nystatin (Nystatin Susp 500,000 Unit/5 Ml Udc) 500,000 unit PO QID YESSENIA Stop: 12/31/23 13:59 Oxycodone/Acetaminophen (Oxycodone/Acetaminophen 5-325 Mg Tablet) 1 tab PO [id number] PRN Reason: Pain Last Admin: 12/30/22 16:50 Dose: 1 tab Pantoprazole Sodium (Pantoprazole 40 Mg Tablet.Dr) 40 mg PO DAILY YESSENIA Stop: 12/30/23 08:59 Last Admin: 12/31/22 08:37 Dose: 40 mg Polyethylene Glycol (Polyethylene Glycol 3350 17 Gm Powd.Pack) 17 gm PO BID YESSENIA Stop: 12/31/23 08:59 Last Admin: 12/31/22 08:37 Dose: Not Given Pramipexole Dihydrochloride (Pramipexole 0.5 Mg Tablet) 0.5 mg PO QHS [facility] Stop: 12/30/23 21:59 Last Admin: 12/30/22 22:13 Dose: 0.5 mg Prednisone (Prednisone 20 Mg Tablet) 40 mg PO DAILY YESSENIA Stop: 12/30/23 13:29 Last Admin: 12/31/22 08:37 Dose: 40 mg Saliva Substitute (Saliva Stimulant Agents Comb.3 44.3 Ml [place]) 0 ml MUCOUS MEM PRN PRN PRN Reason: Dry Mouth Stop: 12/30/23 02:58 Sennosides (Sennosides 8.6 Mg Tablet) 2 tab PO QHS YESSENIA Stop: 12/30/23 21:59 Last Admin: 12/30/22 22:13 Dose: 2 tab Sodium Chloride (Sodium Chloride 0.9 % 10 Ml Syringe) 0 ml IV-PUSH PRN PRN PRN Reason: Flush Stop: 12/29/23 22:02 Last Admin: 12/30/22 10:03 Dose: 10 ml Sodium Chloride (Sodium Chloride 0.9 % 10 Ml Syringe) 0 ml IV-PUSH QSHIFT YESSENIA Stop: 12/30/23 05:59 Last Admin: 12/31/22 08:25 Dose: Not Given Sodium Chloride (Sodium Chloride 0.9 % 10 Ml Syringe) 0 ml IV-PUSH PRN PRN PRN Reason: Flush Stop: 12/30/23 08:28 Vitamin D (Cholecalciferol 25 Mcg (1,000 Units) Tablet) 25 mcg PO DAILY YESSENIA Stop: 12/30/23 08:59 Last Admin: 12/31/22 08:37 Dose: 25 mcg Allergies lisinopril Allergy (Verified 12/06/22 18:31) Cough Results Labs 12/31/22 04:07 12/31/22 04:07 Labs: 12/30/22 12/31/22 06:45 04:07 BUN 36 H D Creatinine 3.40 H D Ferritin 2214.0 H Albumin 3.2 L Radiology Impressions Impressions - last 24 hours: Any impression(s) listed above is documentation that was entered by the reading physician into a diagnostic report(s) for Cinthya Wilson. I have reviewed the report(s) and am incorporating any findings in the treatment plan of this patient where applicable. 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 She gets dialysis admitted for dialysis unit on MWF schedule. Patient had PD for short time 2020 for DAVID on top of CKD and cardiorenal syndrome however renal function did recover. (2) Anemia of renal disease: Assessment/Problem Details: Hemoglobin did drop with no obvious bleeding. She has adequate iron stores however transferrin saturation below 20%. (3) Type 2 diabetes mellitus with diabetic chronic kidney disease: Assessment/Problem Details: She has insulin-dependent type 2 diabetes mellitus. (4) Benign hypertension with end-stage renal disease: Assessment/Problem Details: Blood pressure did improve on dialysis and possibly progression of underlying CAD/CHF. He is appears to be a euvolemic however respiratory rate 30 and she has elevated BNP that seems to be chronic.. She occasionally takes midodrine with dialysis (5) Secondary hyperparathyroidism: Assessment/Problem Details: She has a secondary hyperparathyroidism due to the ESRD and hyperphosphatemia. Currently take calcium acetate at home. (6) Pain in joints: Assessment/Problem Details: Patient has generalized bone and joints pain. She is currently on oxycodone with intermittent confusion. Patient has a history of polymyalgia and she has aprevious back surgery. Plan * Patient is clinically stable. She had full hemodialysis yesterday. She is euvolemic with no need for dialysis today. No hyperkalemia or acidosis. Next hemodialysis will be tomorrow per her chronic orders. * Patient on Aranesp with hemodialysis weekly for anemia. Aranesp was increased to 80 mcg weekly. Considering the borderline concerning saturation less than 20%, will add ferric sodium gluconate 125 mcg weekly with dialysis. * All medications reviewed. * Monitor daily intake and output and renal panel. We will adjust medications and dialysis prescriptions accordingly. Documented By: Narinder Toussaint MD 12/31/22 1215 Signed By: <Electronically signed by MD Narinder Toussaint> 12/31/22 1223 [facility] Work Phone: Progress note Author Edie Michel [facility] December 31, 2022 5:16pm Note Date/Time December 31, 2022 5:16pm [facility] [address] [place] [address] Cardiology Progress Note Signed Patient: Cinthya Wilson MR#: [id number] : 1945 Acct:[id number] Age/Sex: 77 / F Adm Date: 3 Loc: Room: 4D2041-5 Type: ADM IN Attending Dr: Tatiana Loya MD Copies to: ~ Date of Service: 12/31/2022 Subjective Interval history: Ms. Wilson is a 77 year old female with PMH significant for CAD status post PCI x1 about 10 years ago in [place], ESRD on HD, hypertension, hyperlipidemia, CHF, COPD on 3 L nasal cannula who has had 2 recent admissions for syncope and nonsustained VT. During the last visit she was discharged home on amiodarone load for VT and with a 30-day event monitor. She presents again with severe weakness and lethargy associated with shortness of breath. She was found to be febrile in the ED with temperature 100.6. She was also noted to be bradycardic in the 40s. EKG showed sinus bradycardia with first- degree AV block. Labs also significant for hemoglobin of 8.8. Blood cultures were drawn. Amiodarone was held due to bradycardia. Patient reports taking amiodarone 400 mg twice daily for 2 weeks and was down tothe 200 mg daily dose. She denies palpitations or syncope prior to presentation. She has completed her event monitor and she states that the monitor is physically at home. Interim evaluation 12/31/2022: No acute events overnight. Patient reports feeling significantly better than on admission. Heart rate remains in the 50s. Exam Physical Exam Vital Signs: Temp Pulse Resp BP Pulse Ox O2 Del Method O2 Flow Rate 97.9 F 54 L 19 121/58 L 100 Nasal Cannula 2 12/31/22 16:00 12/31/22 16:00 12/31/22 16:00 12/31/22 16:00 12/31/22 16:00 12/31/22 16:00 12/31/22 16:00 Narrative: GEN: AAOx3. Chronically ill-appearing, lethargic. Neck: No JVD. Lungs: Clear to auscultation bilaterally Heart: Regular rate, bradycardic. Normal S1 and S2. No murmurs or rubs appreciated. Abdomen: Soft, nontender, nondistended, bowel sounds present. Extremities: No BLE edema. Neuro: AAOx3. No focal deficits. Objective Labs 12/31/22 04:07 12/31/22 04:07 Labs: Laboratory Results - last 24 hr 1112/31/22 12/31/22 22:09 02:39 04:07 Corrected WBC 7.3 Uncorrected WBC Count 7.3 RBC 3.44 L Hgb 9.7 L Hct 30.9 L MCV 89.8 MCH 28.1 MCHC 31.3 L RDW 17.7 H Plt Count 409 MPV 7.8 Neut % (Auto) 91.5 Lymph % (Auto) 4.3 Mchenry % (Auto) 4.1 Eos % (Auto) 0.0 Baso % (Auto) 0.1 Nucleat RBC Rel Count 0.1 Neut # (Auto) 6.7 Lymph # (Auto) 0.3 L Mchenry # (Auto) 0.3 Eos # (Auto) 0.0 Baso # (Auto) 0.0 PHA Creatinine Clear Sodium Potassium Chloride Carbon Dioxide Anion Gap BUN Creatinine Est GFR (CKD-EPI) Glucose POC Glucose 373 227 Calcium Total Bilirubin AST ALT Alkaline Phosphatase Total Protein Albumin Globulin Albumin/Globulin Ratio 12/31/22 12/31/22 12/31/22 04:07 08:11 11:51 Corrected WBC Uncorrected WBC Count RBC Hgb Hct MCV MCH MCHC RDW Plt Count MPV Neut % (Auto) Lymph % (Auto) Mchenry % (Auto) Eos % (Auto) Baso % (Auto) Nucleat RBC Rel Count Neut # (Auto) Lymph # (Auto) Mchenry # (Auto) Eos # (Auto) Baso # (Auto) PHA Creatinine Clear 12.35 Sodium 132 L D Potassium 3.8 Chloride 93 L Carbon Dioxide 27.5 Anion Gap 15.3 H BUN 36 H D Creatinine 3.40 H D Est GFR (CKD-EPI) 13.528 Glucose 255 H D POC Glucose 225 246 Calcium 9.7 Total Bilirubin 0.4 AST 21 ALT 23 Alkaline Phosphatase 157 H Total Protein 6.9 Albumin 3.2 L Globulin 3.7 Albumin/Globulin Ratio 0.9 12/31/22 16:37 Corrected WBC Uncorrected WBC Count RBC Hgb Hct MCV MCH MCHC RDW Plt Count MPV Neut % (Auto) Lymph % (Auto) Mchenry % (Auto) Eos % (Auto) Baso % (Auto) Nucleat RBC Rel Count Neut # (Auto) Lymph # (Auto) Mchenry # (Auto) Eos # (Auto) Baso # (Auto) PHA Creatinine Clear Sodium Potassium Chloride Carbon Dioxide Anion Gap BUN Creatinine Est GFR (CKD-EPI) Glucose POC Glucose 397 Calcium Total Bilirubin AST ALT Alkaline Phosphatase Total Protein Albumin Globulin Albumin/Globulin Ratio A&P - Cardiology (1) Symptomatic bradycardia: Code(s): R00.1 - Bradycardia, unspecified Status: Acute (2) Generalized weakness: Code(s): R53.1 - Weakness Status: Acute (3) Fever: Code(s): R50.9 - Fever, unspecified Status: Acute (4) Pain in joints: Code(s): M25.50 - Pain in unspecified joint Status: Acute (5) ESRD (end stage renal disease): Code(s): N18.6 - End stage renal disease Status: Acute Plan Ms. Wilson is a 77 year old female with PMH significant for CAD status post PCI x1 about 10 years ago in [place], ESRD on HD, hypertension, hyperlipidemia, CHF, COPD on 3 L nasal cannula who has had 2 recent admissions for syncope and nonsustained VT. During the last visit she was discharged home on amiodarone load for VT and with a 30-day event monitor. She presents again with severe weakness and lethargy associated with shortness of breath. She was found to be febrile in the ED with temperature 100.6. She was also noted to be bradycardic in the 40s. EKG showed sinus bradycardia with first- degree AV block. Labs also significant for hemoglobin of 8.8. Blood cultures were drawn. Amiodarone was held due to bradycardia. Patient reports taking amiodarone 400 mg twice daily for 2 weeks and was down tothe 200 mg daily dose. She denies palpitations or syncope prior to presentation. She has completed her event monitor and she states that the monitor is physically at home. Assessment: Symptomatic bradycardia-weakness and fatigue with HR 40s Possible Sepsis Anemia Hx of Nonsustained VT ESRD on HD CAD status post PCI Hypertension Hyperlipidemia Recommendations: -She is in sinus bradycardia in the 50s. No runs of VT noted since admission. Recent ECHO showed EF 50-55% with mild to moderate -Holding off on amiodarone due to bradycardia. Will consider mexiletine if develops VT. -Patient reports he has an EP appointment on Friday as well as with her primary dental office receptionist for PPM planning. -Spoke to daughter today, she will drop off event monitor [facility] - Avoid AVN blockers - Continue telemetry monitoring. - Will follow. Documented By: Edie Michel MD 12/31/221710 Signed By: <Electronically signed by Edie Michel MD> 12/31/221715 [facility] Work Phone: Progress note Author Tatiana Loya [facility] January 01, 2023 10:00am Note Date/Time January 01, 2023 10:00am [facility] [address] [place] [address] Hospitalist Progress Note Signed Patient: Cinthya Wilson MR#: [id number] : 1945 Acct:[id number] Age/Sex: 77 / F Adm Date: 3 Loc: Room: [address] [place] [address] Type: ADM IN Attending Dr: Tatiana Loya MD Copies to: ~ Date of Service: 01/01/2023 Subjective Subjective Narrative: Seen and examined Clinically better No more pain No chest pain or SOB Exam Physical Exam Vital Signs: Temp Pulse Resp BP Pulse Ox O2 Del Method O2 Flow Rate 97.6 F 53 L 18 112/49 L 100 Nasal Cannula 2 01/01/23 09:15 01/01/23 09:30 01/01/23 09:15 01/01/23 09:30 01/01/23 09:15 01/01/23 09:15 01/01/23 09:15 Narrative: General patient laying in bed in no acute distress alert awake oriented x3 HEENT PERRLA Neck supple no JVD no carotid bruit CVS S1-S2 regular rate and rhythm no murmur no gallop Chest clear to auscultation percussion Abdomen soft bowel sounds normoactive no rebound no guarding Extremities no stenosis no clubbing no edema Musculoskeletal exam normal no joint effusion Neurologic exam oriented x3 alert awake no focal left Psychiatry: Normal insight and judgment Skin: no rash or lesions Objective Lab Results 01/01/23 04:21 01/01/23 04:21 Microbiology Results Microbiology 12/29/22 22:37 Blood - Right Forearm Blood Culture - Preliminary No Growth 2 Days 12/29/22 22:20 Blood - Right Antecubital Blood Culture - Preliminary No Growth 2 Days Meds Allergies and Active Meds Allergies lisinopril Allergy (Verified 12/06/22 18:31) Cough Active Meds: Active Medications Generic Name Dose Route Start Last Admin Trade Name Molinaq PRN Reason Stop Dose Admin Acetaminophen 650 mg 12/30/22 02:49 Acetaminophen 325 Mg Tablet PO 12/30/23 02:48 Q6HR PRN Pain Scale 1 - 3 or fever Albuterol 0.63 mg 12/30/22 03:53 Albuterol Neb 2.5 Mg/3 Ml Vial.Neb INHALATION 12/30/23 03:52 QID PRN Shortness Of Breath Atorvastatin Calcium 40 mg 12/30/22 21:00 12/31/22 21:47 Atorvastatin 40 Mg Tablet PO 12/30/23 20:59 40 mg QPM YESSENIA Administration Bisacodyl 5 mg 12/30/22 03:23 Bisacodyl 5 Mg Tablet.Dr PO 12/30/23 03:22 BID PRN Constipation Calcium Acetate 667 mg 12/30/22 08:00 01/01/23 08:26 Calcium Acetate 667 Mg Capsule PO 12/30/23 07:59 667 mg TID.WITH.MEALS YESSENIA Administration Citalopram Hydrobromide 40 mg 12/30/22 09:00 01/01/23 08:26 Citalopram 40 Mg Tablet PO 12/30/23 08:59 40 mg DAILY YESSENIA Administration Darbepoetin Theodore 80 mcg 01/01/23 09:00 01/01/23 09:41 Darbepoetin Theodore In Polysorbat 40 Mcg/Ml Vial IV-PUSH 01/01/24 08:59 80 mcg WE YESSENIA Administration Dextrose 0 gm 12/30/22 03:23 Dextrose 50% In Water 25 Gm/50 Ml Syringe IV-PUSH 12/30/23 03:22 PRN PRN Hypoglycemia Diclofenac Sodium 4 gm 12/30/22 09:00 01/01/23 08:27 Diclofenac Sodium 1% Gel 100 Gm Tube TOPICAL 12/30/23 08:59 4 gm QID YESSENIA Administration Docusate Sodium 100 mg 12/30/22 09:00 01/01/23 08:26 Docusate 100 Mg Capsule PO 12/30/23 08:59 100 mg BID YESSENIA Administration Ferric Sodium Gluconate Complex 125 mg 12/30/22 09:00 12/30/22 10:03 Sodium Ferric Gluconat/Sucrose 62.5 Mg/5 Ml Vial IV-PUSH 12/30/23 08:59 125mg Mo@0900 YESSENIA Administration Furosemide 60 mg 12/30/22 09:00 01/01/23 08:26 Furosemide 20 Mg Tablet PO 12/30/23 08:59 60 mg BID@0800,1700 YESSENIA Administration Glucose 0.6 gm 12/30/22 03:22 Dextrose 40% Gel 15 Gm Tube PO 12/30/23 03:21 PRN PRN Hypoglycemia Glucose 0 gm 12/30/22 03:23 Dextrose 40% Gel 15 Gm Tube PO 12/30/23 03:22 PRN PRN Hypoglycemia Heparin Sodium (Porcine) 2,000 unit 12/30/22 08:29 01/01/23 09:41 Heparin 10,000 Unit/10 Ml Vial IV 12/30/23 08:28 2,000 unit PRN PRN Administration Dialysis Heparin Sodium (Porcine) 1,000 unit 12/30/22 08:29 01/01/23 09:42 Heparin 10,000 Unit/10 Ml Vial IV 12/30/23 08:28 1,000 unit PRN PRN Administration Dialysis Sodium Chloride 1,000 mls @ 0 mls/hr 12/30/22 08:29 01/01/23 09:43 0.9% Sodium Chloride 1,000 Ml MISCELLANE 12/30/23 08:28 Infused .Q0M PRN Infusion Dialysis As Directed Insulin Aspart 0 units 12/30/22 08:00 01/01/23 08:27 Insulin Aspart 300 Units/3 Ml Insuln.Pen SUBCUT 12/30/23 07:59 2 units TID.WM.HS YESSENIA Administration Protocol Midodrine 5 mg 12/30/22 03:22 Midodrine 5 Mg Tablet PO 12/30/23 03:21 TID.7A.12P.5P PRN Hypotension Multivitamins 1 tab 12/30/22 09:00 01/01/23 08:26 Multivitamin 1 Tab Tablet PO 12/30/23 08:59 1 tab DAILY YESSENIA Administration Nystatin 500,000 unit 12/31/22 14:00 01/01/23 08:25 Nystatin Susp 500,000 Unit/5 Ml Udc PO 12/31/23 13:59 500,000 unit QID YESSENIA Administration Oxycodone/Acetaminophen 1 tab 12/30/22 03:22 01/01/23 08:25 Oxycodone/Acetaminophen 5-325 Mg Tablet PO 1 tab Q6HR PRN Administration Pain Pantoprazole Sodium 40 mg 12/30/22 09:00 01/01/23 08:26 Pantoprazole 40 Mg Tablet. PO 12/30/23 08:59 40 mg DAILY YESSENIA Administration Polyethylene Glycol 17 gm 12/31/22 09:00 01/01/23 08:27 Polyethylene Glycol 3350 17 Gm Powd.Pack PO 12/31/23 08:59 Not Given BID YESSENIA Pramipexole Dihydrochloride 0.5 mg 12/30/22 22:00 12/31/22 21:47 Pramipexole 0.5 Mg Tablet PO 12/30/23 21:59 0.5 mg QHS YESSENIA Administration Prednisone 40 mg 12/30/22 13:30 01/01/23 08:26 Prednisone 20 Mg Tablet PO 12/30/23 13:29 40 mg DAILY YESSENIA Administration Saliva Substitute 0 ml 12/30/22 02:59 Saliva Stimulant Agents Comb.3 44.3 Ml [place] MUCOUS MEM 12/30/23 02:58 PRN PRN Dry Mouth Sennosides 2 tab 12/30/22 22:00 12/31/22 21:48 Sennosides 8.6 Mg Tablet PO 12/30/23 21:59 2 tab QHS YESSENIA Administration Sodium Chloride 0 ml 12/29/22 22:03 12/30/22 10:03 Sodium Chloride 0.9 % 10 Ml Syringe IV-PUSH 12/29/23 22:02 10 ml PRN PRN Administration Flush Sodium Chloride 0 ml 12/30/22 06:00 01/01/23 06:01 Sodium Chloride 0.9 % 10 Ml Syringe IV-PUSH 12/30/23 05:59 10 ml QSHIFT YESSENIA Administration Sodium Chloride 0 ml 12/30/22 08:29 01/01/23 09:41 Sodium Chloride 0.9 % 10 Ml Syringe IV-PUSH 12/30/23 08:28 10 ml PRN PRN Administration Flush Vitamin D 25 mcg 12/30/22 09:00 01/01/23 08:26 Cholecalciferol 25 Mcg (1,000 Units) Tablet PO 12/30/23 08:59 25 mcg DAILY YESSENIA Administration A&P - Hospitalist Assessment/Plan (1) Weakness: (2) Swollen tongue: (3) Symptomatic bradycardia: (4) Anemia: (5) Diabetes: (6) COPD (chronic obstructive pulmonary disease): (7) CAD (coronary artery disease): (8) Recurrent right pleural effusion: (9) Type 2 diabetes mellitus with diabetic chronic kidney disease: (10) Fever: Plan Assessment/Plan. This is a 77-year-old woman came emergency room today because she is getting very weak at home. She is also having shortness of breath. Things were gettingmuch worse today during the daytime on Friday. Reportedly she slept all day. She was having a little bit of a fever. In the emergency room she seemed to have pain everywhere throughout her body. She was very weak. She almost fell just getting out of bed to the bedside commode. She is a longstanding hemodialysis patient for end-stage renal disease. She hasa history of coronary artery disease status post stenting about 10 years ago andhas heart failure with reduced ejection fraction. She also has hypertension, she has COPD and chronic hypoxic respiratory failure chronically using 3 L oxygen by nasal cannula, she has GERD, and she has diabetes mellitus type 2 on insulin. She has had recent stays here in the hospital from December 08 through December 09when she was having a wide-complex rhythm and was evaluated by cardiology. She returned on December 13 through December 16 with bradycardia. At that time cardiology recommended amiodarone to suppress bigeminy and short nonsustained runs of ventricular tachycardia but they also recommended cessation of her beta-madhu due to bradycardia. She is not anticoagulated. She is chronically hypotensive and requires midodrine especially on dialysis days. Upon arrival up to the medical floor it was noted that her heart rate is very slow at about 43 bpm. Nursing staff on the medical floor also noticed that her tongue seems to be enlarged and somewhat swollen. Patient indicates that she had noticed that her tongue was bigger because she was biting it more often. She made an appointment to see a dentist about this in a couple weeks. She was started on buspirone 10 mg daily and gabapentin 100 mg p.o. twice daily just on December 26, so that was about 3 to 4 days ago. Also, looking at her OARRS report, she was upgraded from chronic use of hydrocodone product such as [place] 10/325 up to Percocet 5/325 enough for 4 tablets a day. Looking at her OARRS report I never saw her picking up gabapentin before. Notably her hemoglobin in the emergency room today was only 8.8. When she left the hospital on December 16 it was in its baseline of 10.4. The patient states that she has been constipated and has not moved her bowels for the last 4 days. A/P Sinus bradycardia History of Non sustained VT Seen and examined Clinically stable No complaints HR is better Keep holding Beta madhu Keep holding Amiodarone PO Recent ECHO showed EF 50-55% with mild to moderate Cardiology is following Nephrology is following Profound fatigue and weakness secondary to bradycardia Improving Swollen/enlarged tongue Thrush: Nystatin PO swish and wash Improving Anemia of chronic disease : Hemoglobin and hematocrit was CAD: Aspirin daily/cardiology was consulted Hypertension: Controlled Hyperlipidemia: Continue statin Diabetes type: Insulin sliding scale Obesity: Lifestyle modification Sleep apnea: CPAP DC planning : DC when ok with Cardiology GERD: PPI Documented By: Tatiana Loya MD 01/01/23 0958 Signed By: <Electronically signed by Tatiana Loya MD> 01/01/23 1000 [facility] Work Phone: Progress note Author Donal Farrar [facility] January 01, 2023 11:33am Note Date/Time January 01, 2023 11:28am [facility] [address] [place] [address] Cardiology Progress Note Signed Patient: Cinthya Wilson MR#: [id number] : 1945 Acct:[id number] Age/Sex: 77 / F Adm Date: 3 Loc: Room: [address] [place] [address] Type: ADM IN Attending Dr: Tatiana Loya MD Copies to: ~ Date of Service: 01/01/2023 Subjective Principal diagnosis: NSVT, sinus bradycardia on negative chronotropic therapy Interval history: Ms. Wilson is a 77 year old female with PMH significant for CAD status post PCI x1 about 10 years ago in [place], ESRD on HD, hypertension, hyperlipidemia, CHF, COPD on 3 L nasal cannula who has had 2 recent admissions for syncope and nonsustained VT. During the last visit she was discharged home on amiodarone load for VT and with a 30-day event monitor. She presents again with severe weakness and lethargy associated with shortness of breath. She was found to be febrile in the ED with temperature 100.6. She was also noted to be bradycardic in the 40s. EKG showed sinus bradycardia with first- degree AV block. Labs also significant for hemoglobin of 8.8. Blood cultures were drawn. Amiodarone was held due to bradycardia. Patient reports taking amiodarone 400 mg twice daily for 2 weeks and was down tothe 200 mg daily dose. She denies palpitations or syncope prior to presentation. She has completed her event monitor and she states that the monitor is physically at home. Interim evaluation 01/01/2023: No acute events overnight. Patient reports feeling significantly better than on admission. Heart rate remains in the 50s. On evaluation patient is in the midst of hemodialysis. No hemodynamic aberrancies. No new complaints this morning. Exam Physical Exam Vital Signs: Temp Pulse Resp BP Pulse Ox O2 Del Method O2 Flow Rate 97.6 F 50 L 18 111/47 L 100 Nasal Cannula 2 01/01/23 09:15 01/01/23 11:00 01/01/23 09:15 01/01/23 11:00 01/01/23 09:15 01/01/23 09:15 01/01/23 09:15 Resp Effort & Inspection: normal respiratory effort Auscultation: clear to auscultation bilaterally Cardio Jugular venous pressure: no JVD Rate: bradycardic Heart Sounds: S1 normal, S2 normal, gallop S4 gallop and murmur systolic early, II/, with radiation to the carotids and at the right sternal border Extrem General: no clubbing, cyanosis or edema Psych Insight: insight good Judgment: judgment good Objective Labs 01/01/23 04:21 01/01/23 04:21 Labs: Laboratory Results - last 24 hr 12/31/22 12/31/22 12/31/22 11:51 16:37 21:45 Corrected WBC Uncorrected WBC Count RBC Hgb Hct MCV MCH MCHC RDW Plt Count MPV Neut % (Auto) Lymph % (Auto) [place] % (Auto) Eos % (Auto) Baso % (Auto) Nucleat RBC Rel Count Neut # (Auto) Lymph # (Auto) Mchenry # (Auto) Eos # (Auto) Baso # (Auto) PHA Creatinine Clear Sodium Potassium Chloride Carbon Dioxide Anion Gap BUN Creatinine Est GFR (CKD-EPI) Glucose POC Glucose 246 397 406 H* POC Glucose Comment Calcium Total Bilirubin AST ALT Alkaline Phosphatase Total Protein Albumin Globulin Albumin/Globulin Ratio 01/01/23 01/01/23 04:21 04:21 Corrected WBC 10.1 Uncorrected WBC Count 10.1 RBC 3.53 L Hgb 9.8 L Hct 31.5 L MCV 89.1 MCH 27.8 MCHC 31.2 L RDW 17.3 H Plt Count 443 MPV 7.5 Neut % (Auto) 87.5 Lymph % (Auto) 6.5 Mchenry % (Auto) 5.9 Eos % (Auto) 0.0 Baso % (Auto) 0.1 Nucleat RBC Rel Count 0.0 Neut # (Auto) 8.8 H Lymph # (Auto) 0.7 L Mchenry # (Auto) 0.6 Eos # (Auto) 0.0 Baso # (Auto) 0.0 PHA Creatinine Clear 9.43 Sodium 129 L Potassium 4.0 Chloride 91 L Carbon Dioxide 26.4 Anion Gap 15.6 H BUN 57 H Creatinine 4.45 H D Est GFR (CKD-EPI) 9.794 Glucose 227 H POC Glucose POC Glucose Comment Calcium 9.8 Total Bilirubin 0.3 AST 27 ALT 33 Alkaline Phosphatase 167 H Total Protein 6.8 Albumin 3.2 L Globulin 3.6 Albumin/Globulin Ratio 0.9 Imaging and cardiology Echo: Additional comments: [facility] [place] [address] [place] [address] Echocardiogram Signed Patient: Cinthya Wilson : 1945 Age/Sex: 76 / F ADM Date: 02/22/22 Interpretation Summary This was a 2D imaging study with no Doppler imaging The left ventricular size and thickness are normal. There is mild global hypokinesis of the left ventricle. The LV ejection fraction is 45 %. The left atrium appears mildly dilated. Procedure/Quality: A two-dimensional transthoracic echocardiogram was performed. This was a 2D imaging study with no Doppler imaging. Left Ventricle: The left ventricular size and thickness are normal. The LV ejection fraction is 45 %. There is mild global hypokinesis of the left ventricle. Left Atrium: The left atrium appears mildly dilated. The atrial septum appears normal. Right Atrium: The right atrium appears normal in size. Right Ventricle: The right ventricular size, thickness and function are normal. Aortic Valve: The aortic valve is mildly sclerotic. Mitral Valve: The mitral valve is mildly sclerotic. Tricuspid Valve: The tricuspid valve is normal. Pulmonic Valve: The pulmonic valve is not well seen, but is grossly normal. Arteries: The aortic root is normal size. Pericardium/Pleura: No pericardial effusion seen. There is no pleural effusion. IVC/Hepatic Viens: The IVC is normal in size with an inspiratory collapse of greater then 50%, suggesting normal right atrial pressure. Miscellaneous: No thrombus, vegetation or mass is seen. Measurements with Normals IVSd: 1.2 cm (0.7-1.1 cm)LVIDd: 5.5 cm (3.7-5.4 cm) LVPWd: 1.0 cm (0.7-1.1 cm)LVIDs: 4.2 cm (2.3-3.6 cm) LA dimension: 4.4 cm(2.3-4.0 cm)Ao root diam: 2.8 cm(2.0-3.6 cm) Doppler with Normals RVSP(TR): 23.6 mmHg(18-35mmHg) MMode/2D Measurements & Calculations RVDd: 3.5 cm FS: 24.3 % Ao root area: 6.2 [id number] ap4: 8.9 cm EDV(Teich): EDV(MOD-sp4): 149.3 ml 107.0 ml ESV(Teich): LVLs ap4: 7.9 cm 78.0 ml ESV(MOD-sp4): EF(Teich): 47.8 % 65.9 ml EF(MOD-sp4): 38.4 % __ SV(MOD-sp4): LAV(MOD-sp4): LA A2 area: 26.2 cm2 41.1 ml 67.8 ml LAV(MOD-sp2): LA A4 area: 24.0 cm2 87.7 ml LA length (vol): 6.7 cm LA vol: 79.7 ml LA vol index: 43.6 ml/m2 Doppler Measurements & Calculations TV max P.0 mmHg TR max jp: 226.7 cm/sec TR max P.6 mmHg RAP systole: 3.0 mmHg A&P - Cardiology (1) Symptomatic bradycardia: Code(s): R00.1 - Bradycardia, unspecified Status: Acute (2) Generalized weakness: Code(s): R53.1 - Weakness Status: Acute (3) Fever: Code(s): R50.9 - Fever, unspecified Status: Acute (4) Pain in joints: Code(s): M25.50 - Pain in unspecified joint Status: Acute (5) ESRD (end stage renal disease): Code(s): N18.6 - End stage renal disease Status: Acute Plan Ms. Wilson is a 77 year old female with PMH significant for CAD status post PCI x1 about 10 years ago in [place], ESRD on HD, hypertension, hyperlipidemia, CHF, COPD on 3 L nasal cannula who has had 2 recent admissions for syncope and nonsustained VT. During the last visit she was discharged home on amiodarone load for VT and with a 30-day event monitor. She presents again with severe weakness and lethargy associated with shortness of breath. She was found to be febrile in the ED with temperature 100.6. She was also noted to be bradycardic in the 40s. EKG showed sinus bradycardia with first- degree AV block. Labs also significant for hemoglobin of 8.8. Blood cultures were drawn. Amiodarone was held due to bradycardia. Patient reports taking amiodarone 400 mg twice daily for 2 weeks and was down tothe 200 mg daily dose. She denies palpitations or syncope prior to presentation. She has completed her event monitor and she states that the monitor is physically at home. Assessment: Symptomatic bradycardia-weakness and fatigue with HR 40s Possible Sepsis Anemia Hx of Nonsustained VT ESRD on HD CAD status post PCI Hypertension Hyperlipidemia Recommendations: -Patient is in sinus bradycardia in the 50s. Asymptomatic and hemodynamically stable no runs of VT noted since admission. Recent ECHO showed EF 45% with mild to moderate -Holding off on amiodarone due to bradycardia. Will consider mexiletine if develops VT. -Patient reports he has an EP appointment on Friday as well as with her primary dental office receptionist for PPM planning. - Avoid AVN blockers - Continue telemetry monitoring. -No new recommendations from a cardiac standpoint. Will follow. Time spent with patient Time Spent With Patient (min): 20 Documented By: Donal Farrar MD 01/01/231122 Signed By: <Electronically signed by Donal Farrar MD> 01/01/23 1133 [facility] Work Phone: Progress note Author [facility] January 01, 2023 1:18pm Note Date/Time January 01, 2023 1:18pm [facility] [address] [place] [address] Nephrology Progress Note Signed Patient: Cinthya Wilson MR#: [id number] : 1945 Acct:[id number] Age/Sex: 77 / F Adm Date: 3 Loc: Room: [address] [place] [address] Type: ADM IN Attending Dr: Tatiana Loya MD Copies to: ~ Date of Service: 01/01/2023 Subjective Subjective Narrative: Ms. 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 Patient currently gets dialysis at [facility] dialysis unit on MWF schedule. Patient had recent admission on December 07 for syncopal episode and she was found to have episodes of nonsustained V. tach with prolonged QT interval. She was evaluated by cardiology on several occasions, first carvedilol switched to metoprolol however because of bradycardia and persistent current nonsustained V. tach, she was started on amiodarone with holding metoprolol. Patient was informed that she will need a pacemaker as outpatient and she was supposed to follow-up with cardiology by the end of this month. Evaluation in ER showed bradycardia 30s to40/min. Hemoglobin was down to 8.5 g/dL compared to 10.4 on December 16. Patient is not on anticoagulation. Patient came to the ER because of persistent weakness and almost fell just getting out of the bed to the bedside commode. She stated that she has pain allover her body involving the joints and bone. Recently her narcotics was upgraded to oxycodone every 6 hours. Patient has COPD with chronic hypoxemic respiratory failure on 3 L oxygen at home. Patient is due for dialysis today hence nephrology was consulted. Interval history: Patient is being seen and examined on hemodialysis. Overall she is doing better. Heart rate stabilized at 50s per minute with no more episodes of bradycardia. Blood pressure 126/53. No V. tach's. Amiodarone was stopped by cardiology because of bradycardia. Plan to try mexiletine if developed V. tach again. Cardiac event monitor was reviewed by Dr. Pizano. Patient had 5 tracing was sent for review all demonstrate normal sinus rhythm with normal heart rate however one of the strips demonstrate high-grade AV blockwith a 3-1 AV conduction and 3.1-second pause this was not asymptomatic. Bone aches has improved with prednisone that is going to be decreased because ofhyperglycemia. Exam Physical Exam Vital Signs: Temp Pulse Resp BP Pulse Ox O2 Del Method O2 Flow Rate 36.4 C 60 18 126/53 L 100 Nasal Cannula 2 01/01/23 09:15 01/01/23 13:00 01/01/23 09:15 01/01/23 13:00 01/01/23 09:15 01/01/23 09:15 01/01/23 09:15 Narrative: Constitutional: Up in the bed, awake with no respiratory distress, she is on chronic home oxygen for COPD. HEENT: She has mild pallor. Mucous membranes are moist. Cardiovascular: RRR, normal S1-S2, no gallop or rub, No JVD Respiratory: Diminished breath sounds. No crackles or wheezes. Gastrointestinal: Soft, non tender, positive bowel sounds. No palpable organs or masses Extremities: 1+ edema Skin: No rashes or bruises Musculoskeletal: Muscle tenderness has improved. Neurology: Awake, alert, oriented ?3, No focal motor or sensory deficits. Psych: Normal mood and affect Vascular access: Left arm AV fistula with good thrill. Objective Intake and Output I&O: Intake & Output 12/29/22 12/30/22 12/31/22 01/01/23 23:59 23:59 23:59 23:59 Intake Total 1310 / 1310 1000 / 1000 1300 / 1300 Output Total 2503 / 2503 0 / 0 0 / 0 Balance -1193 / -1193 1000 / 1000 1300 / 1300 Weight 63.3 kg 63.4 kg 60.4 kg 60.2 kg Meds and Allergies Meds: Active Medications Acetaminophen (Acetaminophen 325 Mg Tablet) 650 mg PO Q6HR PRN PRN Reason: Pain Scale 1 - 3 or fever Stop: 12/30/23 02:48 Albuterol (Albuterol Neb 2.5 Mg/3 Ml Vial.Neb) 0.63 mg INHALATION QID PRN PRN Reason: Shortness Of Breath Stop: 12/30/23 03:52 Atorvastatin Calcium (Atorvastatin 40 Mg Tablet) 40 mg PO QPM YESSENIA Stop: 12/30/23 20:59 Last Admin: 12/31/22 21:47 Dose: 40 mg Bisacodyl (Bisacodyl 5 Mg Tablet.Dr) 5 mg PO BID PRN PRN Reason: Constipation Stop: 12/30/23 03:22 Calcium Acetate (Calcium Acetate 667 Mg Capsule) 667 mg PO TID.WITH.MEALS YESSENIA Stop: 12/30/23 07:59 Last Admin: 01/01/23 08:26 Dose: 667 mg Citalopram Hydrobromide (Citalopram 40 Mg Tablet) 40 mg PO DAILY YESSENIA Stop: 12/30/23 08:59 Last Admin: 01/01/23 08:26 Dose: 40 mg Darbepoetin Theodore (Darbepoetin Theodore In Polysorbat 40 Mcg/Ml Vial) 80 mcg IV- PUSHWE YESSENIA Stop: 01/01/24 08:59 Last Admin: 01/01/23 09:41 Dose: 80 mcg Dextrose (Dextrose 50% In Water 25 Gm/50 Ml Syringe) 0 gm IV-PUSH PRN PRN PRN Reason: Hypoglycemia Stop: 12/30/23 03:22 Diclofenac Sodium (Diclofenac Sodium 1% Gel 100 Gm Tube) 4 gm TOPICAL QID YESSENIA Stop: 12/30/23 08:59 Last Admin: 01/01/23 08:27 Dose: 4 gm Docusate Sodium (Docusate 100 Mg Capsule) 100 mg PO BID YESSENIA Stop: 12/30/23 08:59 Last Admin: 01/01/23 08:26 Dose: 100 mg Ferric Sodium Gluconate Complex (Sodium Ferric Gluconat/Sucrose 62.5 Mg/5 Ml Vial) 125 mg IV-PUSH Mo@0900 [facility] Stop: 12/30/23 08:59 Last Admin: 12/30/22 10:03 Dose: 125 mg Furosemide (Furosemide 20 Mg Tablet) 60 mg PO BID@0800,1700 [facility] Stop: 12/30/23 08:59 Last Admin: 01/01/23 08:26 Dose: 60 mg Glucose (Dextrose 40% Gel 15 Gm Tube) 0.6 gm PO PRN PRN PRN Reason: Hypoglycemia Stop: 12/30/23 03:21 Glucose (Dextrose 40% Gel 15 Gm Tube) 0 gm PO PRN PRN PRN Reason: Hypoglycemia Stop: 12/30/23 03:22 Heparin Sodium (Porcine) (Heparin 10,000 Unit/10 Ml Vial) 2,000 unit IV PRN PRN PRN Reason: Dialysis Stop: 12/30/23 08:28 Last Admin: 01/01/23 09:41 Dose: 2,000 unit Heparin Sodium (Porcine) (Heparin 10,000 Unit/10 Ml Vial) 1,000 unit IV PRN PRN PRN Reason: Dialysis Stop: 12/30/23 08:28 Last Admin: 01/01/23 09:42 Dose: 1,000 unit Sodium Chloride (0.9% Sodium Chloride 1,000 Ml) 1,000 mls @ 0 mls/hr MISCELLANE.Q0M PRN PRN Reason: Dialysis Stop: 12/30/23 08:28 Last Infusion: 01/01/23 11:44 Dose: Infused Insulin Aspart (Insulin Aspart 300 Units/3 Ml Insuln.Pen) 0 units SUBCUT TID.WM.HS [facility]; Protocol Stop: 12/30/23 07:59 Last Admin: 01/01/23 08:27 Dose: 2 units Midodrine (Midodrine 5 Mg Tablet) 5 mg PO TID.7A.12P.5P PRN PRN Reason: Hypotension Stop: 12/30/23 03:21 Multivitamins (Multivitamin 1 Tab Tablet) 1 tab PO DAILY [facility] Stop: 12/30/23 08:59 Last Admin: 01/01/23 08:26 Dose: 1 tab Nystatin (Nystatin Susp 500,000 Unit/5 Ml Udc) 500,000 unit PO QID [facility] Stop: 12/31/23 13:59 Last Admin: 01/01/23 08:25 Dose: 500,000 unit Oxycodone/Acetaminophen (Oxycodone/Acetaminophen 5-325 Mg Tablet) 1 tab PO [id number] PRN Reason: Pain Last Admin: 01/01/23 08:25 Dose: 1 tab Pantoprazole Sodium (Pantoprazole 40 Mg Tablet.Dr) 40 mg PO DAILY YESSENIA Stop: 12/30/23 08:59 Last Admin: 01/01/23 08:26 Dose: 40 mg Polyethylene Glycol (Polyethylene Glycol 3350 17 Gm Powd.Pack) 17 gm PO BID YESSENIA Stop: 12/31/23 08:59 Last Admin: 01/01/23 08:27 Dose: Not Given Pramipexole Dihydrochloride (Pramipexole 0.5 Mg Tablet) 0.5 mg PO QHS YESSENIA Stop: 12/30/23 21:59 Last Admin: 12/31/22 21:47 Dose: 0.5 mg Prednisone (Prednisone 20 Mg Tablet) 40 mg PO DAILY YESSENIA Stop: 12/30/23 13:29 Last Admin: 01/01/23 08:26 Dose: 40 mg Saliva Substitute (Saliva Stimulant Agents Comb.3 44.3 Ml [place]) 0 ml MUCOUS MEM PRN PRN PRN Reason: Dry Mouth Stop: 12/30/23 02:58 Sennosides (Sennosides 8.6 Mg Tablet) 2 tab PO QHS YESSENIA Stop: 12/30/23 21:59 Last Admin: 12/31/22 21:48 Dose: 2 tab Sodium Chloride (Sodium Chloride 0.9 % 10 Ml Syringe) 0 ml IV-PUSH PRN PRN PRN Reason: Flush Stop: 12/29/23 22:02 Last Admin: 12/30/22 10:03 Dose: 10 ml Sodium Chloride (Sodium Chloride 0.9 % 10 Ml Syringe) 0 ml IV-PUSH QSHIFT YESSENIA Stop: 12/30/23 05:59 Last Admin: 01/01/23 06:01 Dose: 10 ml Sodium Chloride (Sodium Chloride 0.9 % 10 Ml Syringe) 0 ml IV-PUSH PRN PRN PRN Reason: Flush Stop: 12/30/23 08:28 Last Admin: 01/01/23 09:41 Dose: 10 ml Vitamin D (Cholecalciferol 25 Mcg (1,000 Units) Tablet) 25 mcg PO DAILY YESSENIA Stop: 12/30/23 08:59 Last Admin: 01/01/23 08:26 Dose: 25 mcg Allergies lisinopril Allergy (Verified 12/06/22 18:31) Cough Results Labs 01/01/23 04:21 01/01/23 04:21 Labs: 01/01/23 04:21 BUN 57 H Creatinine 4.45 H D Albumin 3.2 L Radiology Impressions Impressions - last 24 hours: Any impression(s) listed above is documentation that was entered by the reading physician into a diagnostic report(s) for Cinthya Wilson. I have reviewed the report(s) and am incorporating any findings in the treatment plan of this patient where applicable. 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 She gets dialysis admitted for dialysis unit on MWF schedule. Patient had PD for short time 2019 for DAVID on top of CKD and cardiorenal syndrome however renal function did recover. (2) Anemia of renal disease: Assessment/Problem Details: Hemoglobin did drop with no obvious bleeding. She has adequate iron stores however transferrin saturation below 20%. (3) Type 2 diabetes mellitus with diabetic chronic kidney disease: Assessment/Problem Details: She has insulin-dependent type 2 diabetes mellitus. (4) Benign hypertension with end-stage renal disease: Assessment/Problem Details: Blood pressure did improve on dialysis and possibly progression of underlying CAD/CHF. He is appears to be a euvolemic however respiratory rate 30 and she has elevated BNP that seems to be chronic.. She occasionally takes midodrine with dialysis (5) Secondary hyperparathyroidism: Assessment/Problem Details: She has a secondary hyperparathyroidism due to the ESRD and hyperphosphatemia. Currently take calcium acetate at home. (6) Pain in joints: Assessment/Problem Details: Patient has generalized bone and joints pain. She is currently on oxycodone with intermittent confusion. Patient has a history of polymyalgia and she has aprevious back surgery. Plan * Hemodialysis today for 4 hours, 2K bath. 1.2 L ultrafiltration as tolerated. * Patient on Aranesp with hemodialysis weekly for anemia. Aranesp was increased to 80 mcg weekly. Hemoglobin did improve up to 9.8 g/dL patient was started on sodium ferric gluconate once a week because of low iron. * All medications reviewed. * Monitor daily intake and output and renal panel. We will adjust medications and dialysis prescriptions accordingly. Patient has been in sinus rhythm with heart rate more than 50s over the last 48 hours. Blood pressure stable. She can be discharged from the ICU if it is okaywith cardiology and primary team. Documented By: Narinder Toussaint MD 01/01/231314 Signed By: <Electronically signed by MD Narinder Toussaint> 01/01/231317 [facility] Work Phone: Progress note Author Georgia Negro [facility] January 02, 2023 12:45pm Note Date/Time January 02, 2023 12:42pm [facility] [address] [place] [address] Cardiology Progress Note Signed Patient: Cinthya Wilson MR#: [id number] : 1945 Acct:[id number] Age/Sex: 77 / F Adm Date: 3 Loc: Room: [address] [place] [address] Type: ADM IN Attending Dr: Tatiana Loya MD Copies to: ~ Date of Service: 01/02/2023 Subjective Principal diagnosis: NSVT, sinus bradycardia on negative chronotropic therapy Interval history: Patient feels better. Heart rate recovered but remains in the mid 50s. No VT noted Exam Physical Exam Vital Signs: Temp Pulse Resp BP Pulse Ox O2 Del Method O2 Flow Rate 98.4 F 58 L 20 140/65 94 L Nasal Cannula 2 01/02/23 11:48 01/02/23 11:48 01/02/23 11:48 01/02/23 11:48 01/02/23 11:48 01/02/23 11:48 01/02/23 11:48 Const General: cooperative Neck Neck: supple Lymphatic: no lymphadenopathy noted Resp Effort & Inspection: normal respiratory effort Auscultation: clear to auscultation bilaterally Cardio Palpation: normal PMI Rate: regular rate Rhythm: regular rhythm Heart Sounds: S1 normal and S2 normal Skin General: dry skin Extrem General: full ROM and no clubbing, cyanosis or edema Objective Labs 01/02/23 04:13 01/02/23 04:13 Labs: Laboratory Results - last 24 hr 01/01/23 01/01/23 01/01/23 07:19 14:12 17:35 Corrected WBC Uncorrected WBC Count RBC Hgb Hct MCV MCH MCHC RDW Plt Count MPV Neut % (Auto) Lymph % (Auto) Mchenry % (Auto) Eos % (Auto) Baso % (Auto) Nucleat RBC Rel Count Neut # (Auto) Lymph # (Auto) Mchenry # (Auto) Eos # (Auto) Baso # (Auto) Platelet Estimate Plt Morphology Comment RBC Morphology Hypochromasia Anisocytosis PHA Creatinine Clear Sodium Potassium Chloride Carbon Dioxide Anion Gap BUN Creatinine Est GFR (CKD-EPI) Glucose POC Glucose 193 165 380 POC Glucose Comment Calcium Total Bilirubin AST ALT Alkaline Phosphatase Total Protein Albumin Globulin Albumin/Globulin Ratio 01/01/23 01/02/23 01/02/23 22:19 04:13 04:13 Corrected WBC 10.5 Uncorrected WBC Count 10.5 RBC 3.37 L Hgb 9.5 L Hct 30.2 L MCV 89.5 MCH 28.2 MCHC 31.5 L RDW 17.2 H Plt Count 424 MPV 7.1 Neut % (Auto) 80.8 Lymph % (Auto) 9.7 Mchenry % (Auto) 9.4 Eos % (Auto) 0.0 Baso % (Auto) 0.1 Nucleat RBC Rel Count 0.0 Neut # (Auto) 8.5 H Lymph # (Auto) 1.0 Mchenry # (Auto) 1.0 H Eos # (Auto) 0.0 Baso # (Auto) 0.0 Platelet Estimate Normal Plt Morphology Comment Normal RBC Morphology N/A Hypochromasia Slight Anisocytosis Slight PHA Creatinine Clear 14.33 Sodium 132 L Potassium 3.7 Chloride 93 L Carbon Dioxide 29.5 Anion Gap 13.2 BUN 37 H Creatinine 2.93 H D Est GFR (CKD-EPI) 16.172 Glucose 209 H POC Glucose 482 H* POC Glucose Comment Calcium 9.3 Total Bilirubin 0.3 AST 18 ALT 27 Alkaline Phosphatase 170 H Total Protein 6.3 L Albumin 3.1 L Globulin 3.2 Albumin/Globulin Ratio 1.0 01/02/23 11:46 Corrected WBC Uncorrected WBC Count RBC Hgb Hct MCV MCH MCHC RDW Plt Count MPV Neut % (Auto) Lymph % (Auto) Mchenry % (Auto) Eos % (Auto) Baso % (Auto) Nucleat RBC Rel Count Neut # (Auto) Lymph # (Auto) Mchenry # (Auto) Eos # (Auto) Baso # (Auto) Platelet Estimate Plt Morphology Comment RBC Morphology Hypochromasia Anisocytosis PHA Creatinine Clear Sodium Potassium Chloride Carbon Dioxide Anion Gap BUN Creatinine Est GFR (CKD-EPI) Glucose POC Glucose 290 POC Glucose Comment Glu2: cleaned meter Calcium Total Bilirubin AST ALT Alkaline Phosphatase Total Protein Albumin Globulin Albumin/Globulin Ratio A&P - Cardiology (1) Symptomatic bradycardia: Code(s): R00.1 - Bradycardia, unspecified Status: Acute Plan Assessment 1. Symptomatic bradycardia triggered by treatment with amiodarone. Improved 2. History of syncope and nonsustained VT has been following by cardiology group in [place] she is scheduled to see them on Friday with consideration for pacemaker or AICD 3. Coronary artery disease with remote PCI 4. End-stage renal disease Plan 1. Patient would like to go home. I advised her that it would be difficult to predict the risk of arrhythmia and or syncope. I emphasized to her the importance of continue her long-term follow-up with her dental office receptionist/dog sitter in [place]. I suspect the patient will need a full EP evaluation. For the time being I would advise to continue hold amiodarone concerning heart rate remains a little bit on the low range until shesee her cardiology in the next few days. Patient wants to go home understandingthe risk 2. The patient was advised to come back to the hospital develop any recurrence of her lightheadedness, dizziness or fatigue Documented By: Georgia Negro MD 01/02/23 1240 Signed By: <Electronically signed by MD Georgia Negro> 01/02/23 1243 [facility] Work Phone: Summary Purpose Family History No Family History Records Found Relationship Condition Age at Onset Recorded Date/T jenelle father Heart disease Unknown Malignant neoplasm Unknown Not Specified Malignant neoplasm Unknown Diabetes mellitus Unknown Advance Directives No Advanced Directives Records Found Advance Directive Response Recorded Date/ Time Advance Directives Yes November 29, 2019 12:53pm Advance Directive Response Recorded Date/ Time Advance Directives Yes November 29, 2019 11:53am Hospital Course Note MR#: [id number] I [facility] Pt. Name: Cinthya Wilson Admitted: 10/08/2019 Discharged: 10/14/2019 Date of : 1945 Physician: Yovani Ayon MD DISCHARGE SUMMARY FINAL DIAGNOSES: 1. Rlaxb-sl-sbxwugl diastolic heart failure exacerbation. 2. Ygizk-wk-hwwbuwa kidney disease with acute kidney injury. 3. Uncontrolled diabetes, insulin dependent with hypoglycemia. 4. Coronary artery disease status post stent. 5. Hypertension. 6. Hyperlipidemia. 7. Depression. 8. Chronic anemia. HOSPITAL COURSE: The patient was admitted to Medicine Service Step-down with [id number] diastolic heart failure. Cardiology was consulted. IV diuresis was started and the patient had tight monitoring of I's and O's with daily weight. Nephrology was also consulted due to elevations in creatinine with acute kidney injury. The patient is diuresed well. An echocardiogram was performed, which showed a normal EF and grade 1 diastolic dysfunction. IV Lasix was then switched to p.o (more content not included)... Chief Complaint and Reason for Visit Chief Complaint . D63.1,N18.4 Dialysis no longer needed Chief Complaint n18.6 Chief Complaint n18.6 N Stemi Reason for Visit Acute heart failure Acute hypoxemic respiratory failure Anemia Bilateral pleural effusion CAD (coronary artery disease) Chronic kidney disease, stage 5 COPD (chronic obstructive pulmonary disease) Diabetes Fluid overload HTN (hypertension) Hyponatremia Primary hypertension Recurrent right pleural effusion Right shoulder pain Sleep apnea Chief Complaint n18.6 N Stemi N18.4,D63.1 Reason for Visit Acute heart failure Acute hypoxemic respiratory failure Anemia Bilateral pleural effusion CAD (coronary artery disease) Chronic kidney disease, stage 5 COPD (chronic obstructive pulmonary disease) Diabetes Fluid overload HTN (hypertension) Hyponatremia Primary hypertension Recurrent right pleural effusion Right shoulder pain Sleep apnea Chief Complaint N Stemi N18.4,D63.1 N18.6 labs Reason for Visit Acute heart failure Acute hypoxemic respiratory failure Anemia Bilateral pleural effusion CAD (coronary artery disease) Chronic kidney disease, stage 5 COPD (chronic obstructive pulmonary disease) Diabetes Fluid overload HTN (hypertension) Hyponatremia Primary hypertension Recurrent right pleural effusion Right shoulder pain Sleep apnea Chief Complaint N18.4,D63.1 N18.6 labs SOB/AMS Reason for Visit Acute hypoxemic resp iratory failure DAVID (acute kidney injury) Anemia COPD (chronic obstructive pulmonary disease) Diabetes Elevated troponin HTN (hypertension) Systolic and diastolic CHF, acute on chronic UTI (urinary tract infection) Chief Complaint N18.4,D63.1 N18.6 labs SOB/AMS Reason for Visit Acute hypoxemic resp iratory failure DAVID (acute kidney injury) Anemia COPD (chronic obstructive pulmonary disease) Diabetes Elevated troponin ESRD (end stage renal disease) HTN (hypertension) Primary hypertension Systolic and diastolic CHF, acute on chronic UTI (urinary tract infection) Chief Complaint labs SOB/AMS t82.898a Reason for Visit Acute hypoxemic resp iratory failure DAVID (acute kidney injury) Anemia COPD (chronic obstructive pulmonary disease) Diabetes Elevated troponin ESRD (end stage renal disease) HTN (hypertension) Primary hypertension Systolic and diastolic CHF, acute on chronic UTI (urinary tract infection) Chief Complaint SOB/AMS t82.898a ESRD Reason for Visit Acute hypoxemic resp iratory failure DAVID (acute kidney injury) Anemia COPD (chronic obstructive pulmonary disease) Diabetes Elevated troponin ESRD (end stage renal disease) HTN (hypertension) Primary hypertension Systolic and diastolic CHF, acute on chronic UTI (urinary tract infection) Chief Complaint SOB/AMS [id number] ESRD rectal bleeding Reason for Visit Acute hypoxemic resp iratory failure DAVID (acute kidney injury) Anemia COPD (chronic obstructive pulmonary disease) Diabetes Elevated troponin ESRD (end stage renal disease) HTN (hypertension) Primary hypertension Systolic and diastolic CHF, acute on chronic UTI (urinary tract infection) Anemia Bright red rectal bleeding Diabetes ESRD (end stage renal disease) Systolic and diastolic CHF, acute on chronic Chief Complaint FALL Reason for Visit CAD (coronary artery disease) COPD (chronic obstructive pulmonary disease) Diabetes ESRD (end stage renal disease) ESRD on dialysis Fall Fall at home HTN (hypertension) Hyponatremia Left shoulder pain Minor head injury Osteoarthritis of left shoulder Recurrent right pleural effusion Chief Complaint FALL syncope Reason for Visit Anemia CAD (coronary artery disease) COPD (chronic obstructive pulmonary disease) Diabetes ESRD (end stage renal disease) ESRD on dialysis Fall Fall at home HTN (hypertension) Hyponatremia Left shoulder pain Minor head injury Nonsustained ventricular tachycardia Osteoarthritis of left shoulder Recurrent right pleural effusion Shoulder pain, bilateral Systolic and diastolic CHF, acute on chronic Acute electrocardiogram changes Head injury Syncopal episodes Chief Complaint FALL syncope Non Sustained VT Reason for Visit Anemia CAD (coronary artery disease) COPD (chronic obstructive pulmonary disease) Diabetes ESRD (end stage renal disease) ESRD on dialysis Fall Fall at home HTN (hypertension) Hyponatremia Left shoulder pain Minor head injury Nonsustained ventricular tachycardia Recurrent right pleural effusion Shoulder pain, bilateral Systolic and diastolic CHF, acute on chronic Acute electrocardiogram changes Anemia of renal disease Benign hypertension with end-stage renal disease CAD (coronary artery disease) Diabetes ESRD (end stage renal disease) ESRD on dialysis Head injury HTN (hypertension) Secondary hyperparathyroidism Syncope Type 2 diabetes mellitus with diabetic chronic kidney disease Chief Complaint FALL syncope Non Sustained VT bradycardia Reason for Visit Anemia CAD (coronary artery disease) COPD (chronic obstructive pulmonary disease) Diabetes ESRD (end stage renal disease) ESRD on dialysis Fall Fall at home HTN (hypertension) Hyponatremia Left shoulder pain Minor head injury Nonsustained ventricular tachycardia Recurrent right pleural effusion Shoulder pain, bilateral Systolic and diastolic CHF, acute on chronic Acute electrocardiogram changes Anemia of renal disease Benign hypertension with end-stage renal disease CAD (coronary artery disease) Diabetes ESRD (end stage renal disease) ESRD on dialysis Head injury HTN (hypertension) Secondary hyperparathyroidism Syncope Type 2 diabetes mellitus with diabetic chronic kidney disease Anemia of renal disease Benign hypertension with end-stage renal disease Bigeminy CAD (coronary artery disease) Cardiomyopathy Chronic combined systolic and diastolic CHF (congestive heart failure) COPD (chronic obstructive pulmonary disease) Diabetes mellitus with insulin therapy ESRD on dialysis HTN (hypertension) Nonsustained ventricular tachycardia Secondary hyperparathyroidism Syncope Type 2 diabetes mellitus with diabetic chronic kidney disease Chief Complaint FALL syncope Non Sustained VT bradycardia weakness, lethargic Reason for Visit Anemia CAD (coronary artery disease) COPD (chronic obstructive pulmonary disease) Diabetes ESRD (end stage renal disease) ESRD on dialysis Fall Fall at home HTN (hypertension) Hyponatremia Left shoulder pain Minor head injury Nonsustained ventricular tachycardia Recurrent right pleural effusion Shoulder pain, bilateral Systolic and diastolic CHF, acute on chronic Acute electrocardiogram changes Anemia of renal disease Benign hypertension with end-stage renal disease CAD (coronary artery disease) Diabetes ESRD (end stage renal disease) ESRD on dialysis Head injury HTN (hypertension) Secondary hyperparathyroidism Syncope Type 2 diabetes mellitus with diabetic chronic kidney disease Anemia of renal disease Benign hypertension with end-stage renal disease Bigeminy CAD (coronary artery disease) Cardiomyopathy Chronic combined systolic and diastolic CHF (congestive heart failure) COPD (chronic obstructive pulmonary disease) Diabetes mellitus with insulin therapy ESRD on dialysis HTN (hypertension) Nonsustained ventricular tachycardia Secondary hyperparathyroidism Syncope Type 2 diabetes mellitus with diabetic chronic kidney disease Chief Complaint FALL syncope Non Sustained VT bradycardia weakness, lethargic Reason for Visit Anemia CAD (coronary artery disease) COPD (chronic obstructive pulmonary disease) Diabetes ESRD (end stage renal disease) ESRD on dialysis Fall Fall at home HTN (hypertension) Hyponatremia Left shoulder pain Minor head injury Nonsustained ventricular tachycardia Recurrent right pleural effusion Shoulder pain, bilateral Systolic and diastolic CHF, acute on chronic Acute electrocardiogram changes Anemia of renal disease Benign hypertension with end-stage renal disease CAD (coronary artery disease) Diabetes ESRD (end stage renal disease) ESRD on dialysis Head injury HTN (hypertension) Secondary hyperparathyroidism Syncope Type 2 diabetes mellitus with diabetic chronic kidney disease Anemia of renal disease Benign hypertension with end-stage renal disease Bigeminy CAD (coronary artery disease) Cardiomyopathy Chronic combined systolic and diastolic CHF (congestive heart failure) COPD (chronic obstructive pulmonary disease) Diabetes mellitus with insulin therapy ESRD on dialysis HTN (hypertension) Nonsustained ventricular tachycardia Secondary hyperparathyroidism Syncope Type 2 diabetes mellitus with diabetic chronic kidney disease Anemia Anemia of renal disease Benign hypertension with end-stage renal disease CAD (coronary artery disease) Chronic pleural effusion COPD (chronic obstructive pulmonary disease) Diabetes ESRD (end stage renal disease) ESRD on dialysis Fever Generalized weakness Hyponatremia Pain in joints Recurrent right pleural effusion Secondary hyperparathyroidism Swollen tongue Symptomatic bradycardia Type 2 diabetes mellitus with diabetic chronic kidney disease Weakness Chief Complaint syncope Non Sustained VT bradycardia weakness, lethargic ESRD Reason for Visit Acute electrocardiog romulo changes Anemia of renal disease Benign hypertension with end-stage renal disease CAD (coronary artery disease) Diabetes ESRD (end stage renal disease) ESRD on dialysis Head injury HTN (hypertension) Secondary hyperparathyroidism Syncope Type 2 diabetes mellitus with diabetic chronic kidney disease Anemia of renal disease Benign hypertension with end-stage renal disease Bigeminy CAD (coronary artery disease) Cardiomyopathy Chronic combined systolic and diastolic CHF (congestive heart failure) COPD (chronic obstructive pulmonary disease) Diabetes mellitus with insulin therapy ESRD on dialysis HTN (hypertension) Nonsustained ventricular tachycardia Secondary hyperparathyroidism Syncope Type 2 diabetes mellitus with diabetic chronic kidney disease Anemia Anemia of renal disease Benign hypertension with end-stage renal disease CAD (coronary artery disease) Chronic pleural effusion COPD (chronic obstructive pulmonary disease) Diabetes ESRD (end stage renal disease) ESRD on dialysis Fever Generalized weakness Hyponatremia Pain in joints Recurrent right pleural effusion Secondary hyperparathyroidism Swollen tongue Symptomatic bradycardia Type 2 diabetes mellitus with diabetic chronic kidney disease Weakness Chief Complaint syncope Non Sustained VT bradycardia weakness, lethargic ESRD weakness Reason for Visit Acute electrocardiog romulo changes Anemia of renal disease Benign hypertension with end-stage renal disease CAD (coronary artery disease) Diabetes ESRD (end stage renal disease) ESRD on dialysis Head injury HTN (hypertension) Secondary hyperparathyroidism Syncope Type 2 diabetes mellitus with diabetic chronic kidney disease Anemia of renal disease Benign hypertension with end-stage renal disease Bigeminy CAD (coronary artery disease) Cardiomyopathy Chronic combined systolic and diastolic CHF (congestive heart failure) COPD (chronic obstructive pulmonary disease) Diabetes mellitus with insulin therapy ESRD on dialysis HTN (hypertension) Nonsustained ventricular tachycardia Secondary hyperparathyroidism Syncope Type 2 diabetes mellitus with diabetic chronic kidney disease Anemia Anemia of renal disease Benign hypertension with end-stage renal disease CAD (coronary artery disease) Chronic pleural effusion COPD (chronic obstructive pulmonary disease) Diabetes ESRD (end stage renal disease) ESRD on dialysis Fever Generalized weakness Hyponatremia Pain in joints Recurrent right pleural effusion Secondary hyperparathyroidism Swollen tongue Symptomatic bradycardia Type 2 diabetes mellitus with diabetic chronic kidney disease Weakness Anemia of renal disease Chronic combined systolic and diastolic CHF (congestive heart failure) COPD (chronic obstructive pulmonary disease) Diabetes mellitus with insulin therapy ESRD (end stage renal disease) Generalized weakness Hypokalemia Hyponatremia Hypotension Seizure-like activity Type 2 diabetes mellitus with diabetic chronic kidney disease Chief Complaint syncope Non Sustained VT bradycardia weakness, lethargic ESRD weakness Reason for Visit Acute electrocardiog romulo changes Anemia of renal disease Benign hypertension with end-stage renal disease CAD (coronary artery disease) Diabetes ESRD (end stage renal disease) ESRD on dialysis Head injury HTN (hypertension) Secondary hyperparathyroidism Syncope Type 2 diabetes mellitus with diabetic chronic kidney disease Anemia of renal disease Benign hypertension with end-stage renal disease Bigeminy CAD (coronary artery disease) Cardiomyopathy Chronic combined systolic and diastolic CHF (congestive heart failure) COPD (chronic obstructive pulmonary disease) Diabetes mellitus with insulin therapy ESRD on dialysis HTN (hypertension) Nonsustained ventricular tachycardia Secondary hyperparathyroidism Syncope Type 2 diabetes mellitus with diabetic chronic kidney disease Anemia Anemia of renal disease Benign hypertension with end-stage renal disease CAD (coronary artery disease) Chronic pleural effusion COPD (chronic obstructive pulmonary disease) Diabetes ESRD (end stage renal disease) ESRD on dialysis Fever Generalized weakness Hyponatremia Pain in joints Recurrent right pleural effusion Secondary hyperparathyroidism Swollen tongue Symptomatic bradycardia Type 2 diabetes mellitus with diabetic chronic kidney disease Weakness Anemia of renal disease Benign hypertension with end-stage renal disease CAD (coronary artery disease) Chronic combined systolic and diastolic CHF (congestive heart failure) COPD (chronic obstructive pulmonary disease) Diabetes mellitus with insulin therapy ESRD (end stage renal disease) ESRD on dialysis Generalized weakness Hypokalemia Hypomagnesemia Hyponatremia Hypotension Secondary hyperparathyroidism Seizure-like activity Syncope Type 2 diabetes mellitus with diabetic chronic kidney disease Ventricular tachycardia, sustained Assessments No Assessments Information Available Additional Source Comments INFORMATION SOURCE (unrecogn ized section and content) DATE CREATED AUTHOR 10/26/2019 [facility] DATE CREATED AUTHOR AUTHOR'S ORGANIZ ATION 03/06/2021 [facility] DATE CREATED AUTHOR AUTHOR'S ORGANIZ ATION 03/23/2021 [facility] DATE CREATED AUTHOR AUTHOR'S ORGANIZ ATION 07/27/2021 [facility] DATE CREATED AUTHOR AUTHOR'S ORGANIZ ATION 06/07/2022 [facility] DATE CREATED AUTHOR AUTHOR'S ORGANIZ ATION 08/24/2022 [facility] DATE CREATED AUTHOR AUTHOR'S ORGANIZ ATION 12/15/2022 [facility] DATE CREATED AUTHOR AUTHOR'S ORGANIZ ATION 02/21/2023 [facility] EPIC DATE CREATED AUTHOR AUTHOR'S ORGANIZ ATION 02/26/2023 [facility] DATE CREATED AUTHOR AUTHOR'S ORGANIZ ATION 03/20/2023 [facility] DATE CREATED AUTHOR AUTHOR'S ORGANIZ ATION 03/27/2023 [facility] REASON FOR VISIT (unrecogniz ed section and content) RENAL 2 month Follow up CKD IV and CHFRENAL 4 month follow upREF BY DR FOFANA FOR AV FISTULA, PATIENT HAVING VEIN MAPPING TODAYClinicalRENAL 2 month Follow up6 WEEK FOLLOW UP; GFS 10 AMRENAL 4 month f/u / HOSP F/U3 MONTH FOLLOW UP; AVF EVAL4 WK FOLLOW UP; GFS LEFT ARM 11ANo InformationNo InformationNo InformationRETACRIT INJECTIONProblemsHAVING INCREASED VENOUS PRESSURES AND HARD TIME GETTING BF UP; GFS 10:30A Care Teams (unrecognized sec tion and content) Team Status: Active Member Role Status Dates Lily Aldrich II MD Primary Care Provider Active Team Status: Inactive Member Role Status Dates Lily Aldrich II MD Primary Care Provider Active Azar Palmer Jr, MD Emergency Provider Active Gary Almaguer MD Admit Provider Active Narinder Toussaint MD Other Provider Active Wood Zavala MD Other Provider Active Jackson De Santiago MD Other Provider Active Godwin Larios MD Other Provider Active Geronimo Fofana MD Other Provider Active Carlton Mtz DO Attending Provider Active Edie Michel MD Other Provider Active Team Status: Active Member Role Status Dates Lily Aldrich II MD Primary Care Provider Active Horacio M Tupa , DO Emergency Provider Active Pennie Love DO Admit Provider, Attending Provider Active Team Status: Active Member Role Status Lalita Aldrich II MD Primary Care Provider Active Azar Palmer Jr, MD Emergency Provider Active Gary Almaguer MD Admit Provider, Attending Provi sydnee Active Team Status: Inactive Member Role Status Lalita Aldrich II MD Primary Care Provider Active Tessie Walker FACT CHECKER-C Attending Provider Active Team Status: Inactive Member Role Status Lalita Aldrich II MD Primary Care Provider Active Geronimo Fofana MD Other Provider Active Marcus Banks LPN Other Provider Active Arabella Fernández LPN Other Provider Active David South MD Other Provider Active Tessie Walker NP-C Other Provider Active Ronald Gutierrez MD Other Provider Active Maxime Bhatti MD Other Provider Active Annette Tenorio MD Admit Provider, Attending Provider Active Yamileth Levi II, MD Other Provider Active Team Status: Inactive Member Role Status Lalita Aldrich II MD Primary Care Provider Active Geronimo Fofana MD Attending Provider Active Team Status: Inactive Member Role Status Lalita Aldrich II MD Primary Care Provider Active Maxime Bhatti MD Attending Provider Active Team Status: Inactive Member Role Status Lalita Aldrich II MD Primary Care Provider Active Azar Palmer Jr, MD Emergency Provider Active Gary Almaguer MD Admit Provider Active Narinder Toussaint MD Other Provider Active Wood Zavala MD Other Provider Active Jackson De Santiago MD Other Provider Active Godwin Larios MD Other Provider Active Geronimo Fofana MD Other Provider Active Simone Godoy MD Attending Provider Active Team Status: Inactive Member Role Status Lalita Aldrich II MD Primary Care Provider Active Horacio Moreno DO Emergency Provider Active Jamal Schaefer MD Admit Provider Active Wilmer Azevedo MD Other Provider Active Narinder Toussaint MD Other Provider Active Wood Zavala MD Other Provider Active Jackson De Santiago MD Other Provider Active Godwin Larios MD Other Provider Active Geronimo Fofana MD Other Provider Active Teresa Pagan MD Attending Provider Active Team Status: Inactive Member Role Status Lalita Aldrich II MD Primary Care Provider Active Horacio Moreno DO Emergency Provider Active Pennie Love , DO Admit Provider Active Teresa Pagan MD Attending Provider Active Edie Michel MD Other Provider Active Wood Zavala MD Other Provider Active Team Status: Active Member Role Status Lalita Aldrich II MD Primary Care Provider Active Edie Michel MD Attending Provider Active Team Status: Inactive Member Role Status Lalita Aldrich II MD Primary Care Provider Active Edie Michel MD Attending Provider Active Team Status: Inactive Member Role Status Lalita Aldrich II MD Primary Care Provider Active Moo Villanueva MD Other Provider Active Edie Michel MD Other Provider Active Jamal Schaefer MD Admit Provider Active Narinder Toussaint MD Other Provider Active Annette Tenorio MD Attending Provider Active Team Status: Active Member Role Status Lalita Aldrich II MD Primary Care Provider Active Azar Palmer Jr, MD Emergency Provider Active Carlton Mtz , DO Admit Provider, Attending Pr ovider Active Team Status: Inactive Member Role Status Lalita Aldrich II MD Primary Care Provider Active Azar Palmer Jr, MD Emergency Provider Active Carlton Palomaresm , DO Admit Provider Active Tatiana Loya MD Attending Provider Active Moo Villanueva MD Other Provider Active Edie Michel MD Other Provider Active Narinder Toussaint MD Other Provider Active Team Status: Inactive Member Role Status Lalita Aldrich II MD Primary Care Provider Active Azar Palmer Jr, MD Emergency Provider Active Carlton Mtz , DO Admit Provider Active Tatiana Loya MD Attending Provider Active Moo Villanueva MD Other Provider Active Edie Michel MD Other Provider Active Narinder Toussaint MD Other Provider Active Team Status: Inactive Member Role Status Lalita Aldrich II MD Primary Care Provider Active Wood Zavala MD Attending Provider Active Team Status: Inactive Member Role Status Lalita Aldrich II MD Primary Care Provider Active Moo Villanueva MD Other Provider Active Edie Michel MD Other Provider Active Jamal Schaefer MD Admit Provider Active Narinder Toussaint MD Other Provider Active Annette Tenorio MD Attending Provider Active Team Status: Inactive Member Role Status Lalita Aldrich II MD Primary Care Provider Active Start: December 08, 2022 End: December 09, 2022 Horacio Moreno DO Emergency Provider Active St art: December 08, 2022 End: December 09, 2022 Pennie Love DO Admit Provider Active Start: December 08, 2022 End: December 09, 2022 Teresa Pagan MD Attending Provider Active Sta rt: December 08, 2022 End: December 09, 2022 Edie Michel MD Other Provider Active Start: December 08, 2022 End: December 09, 2022 Wood Zavala MD Other Provider Active Start: tob2022 End: December 09, 2022 Team Status: Inactive Member Role Status Dates Lily Aldrich II MD Primary Care Provider Active Start: December 09, 2022 End: December 09, 2022 Edie Michel MD Attending Provider Active Sta rt: December 09, 2022 End: December 09, 2022 Team Status: Inactive Member Role Status Dates Lily Aldrich II MD Primary Care Provider Active Start: December 13, 2022 End: December 16, 2022 Moo Villanueva MD Other Provider Active Start: December 13, 2022 End: December 16, 2022 Edie Michel MD Other Provider Active Start: December 13, 2022 End: December 16, 2022 Jamal Schaefer MD Admit Provider Active Start: December 13, 2022 End: December 16, 2022 Narinder Toussaint MD Other Provider Active Start: N 2022 End: December 16, 2022 Annette Tenorio MD Attending Provider Active Sta rt: December 13, 2022 End: December 16, 2022 Team Status: Inactive Member Role Status Dates Lily Aldrich II MD Primary Care Provider Active Start: December 30, 2022 End: January 02, 2023 Azar Palmer Jr, MD Emergency Provider Active Start: December 30, 2022 End: January 02, 2023 Carlton Mtz DO Admit Provider Active Start: December 30, 2022 End: January 02, 2023 Tatiana Loya MD Attending Provider Active Star t: December 30, 2022 End: January 02, 2023 Moo Villanueva MD Other Provider Active Start: December 30, 2022 End: January 02, 2023 Edie Michel MD Other Provider Active Start: December 30, 2022 End: January 02, 2023 Narinder Toussaint MD Other Provider Active Start: N ov2022 End: January 02, 2023 Team Status: Inactive Member Role Status Dates Lily Aldrich II MD Primary Care Provider Active Start: February 17, 2023 End: February 17, 2023 Wood Zavala MD Attending Provider Active Start : February 17, 2023 End: February 17, 2023 Team Status: Active Member Role Status Dates Lily Aldrich II MD Primary Care Provider Active Start: March 05, 2023 Marcel Arreaga MD Emergency Provider Active Star t: March 05, 2023 Jamal Schaefer MD Admit Provider, Atte nding Provider Active Start: March 05, 2023 Team Status: Active Member Role Status Dates Lily Aldrich II MD Primary Care Provider Active Start: March 05, 2023 Marcel Arreaga MD Emergency Provider Active Star t: March 05, 2023 Jamal Schaefer MD Admit Provider Active Start: March 05, 2023 Gary Almaguer MD Other Provider Active Sta rt: March 05, 2023 Katalina Wood RN Other Provider Active Star t: March 05, 2023 Donal Farrar MD Other Provider Active Start: Dagoberto [email or web address] Moo Villanueva MD Other Provider Active Start: March 05, 2023 Edie Michel MD Other Provider Active Start: March 05, 2023 Narinder Toussaint MD Attending Provider, Other Provider Active Start: March 05, 2023 Goals (unrecognized section and content) Goals may be documented in a n alternate section FOR RECORDS PERTAINING TO PATIENTS WHO ARE OR HAVE BEEN ENROLLED IN A CHEMICAL DEPENDENCY/SUBSTANCEABUSE PROGRAM, SOME INFORMATION MAY BE OMITTED. This clinical summary was aggregated from multiple sources. Caution should be exercised in using it in the provision of clinical care. This summary normalizes information from multiple sources, and as a consequence, information in this document may materially change the coding, format and clinical context of patient data. In addition, data may be omitted in some cases. CLINICAL DECISIONS SHOULD BE BASED ON THE PRIMARY CLINICAL RECORDS. [facility] [employer] provides no warranty or guarantee of the accuracy or completeness of information in this document.
--- NOTE | 2023-03-31 01:09 | ED.NECK1 ---
HPI - Neck Pain/Injury General Chief Complaint: Neck Pain/Injury Stated Complaint: NECK PAIN Time Seen by Provider: 03/31/23 00:37 Source: patient Mode of arrival: walk-in Limitations: no limitations History of Present Illness HPI Narrative: patient presents complaining of right neck spasm pain that started yesterday. Denies injury. Denies headache. Pain does not radiate to her extremities . No fever MD complaint: Reports neck pain Related Data Home Medications Medication Instructions Recorded Confirmed aspirin 81 mg tablet,delayed 81 mg PO DAILY 12/13/22 03/31/23 release (Adult Low Dose Aspirin) atorvastatin 40 mg tablet 40 mg PO BEDTIME 12/13/22 03/31/23 calcium acetate(phosphat bind) 667 667 mg PO TID 12/13/22 03/31/23 mg capsule citalopram 40 mg tablet 40 mg PO DAILY 12/13/22 03/31/23 docusate sodium 100 mg capsule 100 mg PO BID 12/13/22 03/31/23 (Colace) furosemide 20 mg tablet 60 mg PO BID 12/13/22 03/31/23 insulin lispro 100 unit/mL 1 sliding scale dose subcut 12/13/22 03/31/23 subcutaneous pen (Humalog Tempo USEASDIRECTD Pen (U-100) Insulin) multivitamin (Daily Multi-Vitamin 1 tab PO DAILY 12/13/22 03/31/23 tablet) oxycodone-acetaminophen 5 mg-325 1 tab PO Q6H PRN pain 12/13/22 03/31/23 mg tablet pantoprazole 40 mg tablet,delayed 40 mg PO DAILY 12/13/22 03/31/23 release pramipexole 0.5 mg tablet 0.5 mg PO QPM 12/13/22 03/31/23 sennosides 8.6 mg tablet (senna) 8.6 mg PO BID 12/13/22 03/31/23 acetaminophen 650 mg 650 mg PO Q8H PRN pain 01/06/23 03/31/23 tablet,extended release (Arthritis Pain Relief (acetaminophen) ER) albuterol sulfate 0.63 mg/3 mL 0.63 mg continuous nebulization 01/06/23 03/31/23 solution for nebulization Q4H PRN shortness of breath or wheezing fluticasone fur. 100 mcg-umeclid 1 inh inhalation DAILY 01/06/23 03/31/23 62.5 mcg-vilant 25 mcg inhalat.powder (Trelegy Ellipta) ammonium lactate 12 % lotion 1 applic topical DAILY 03/31/23 03/31/23 buspirone 10 mg tablet 10 mg PO BID 03/31/23 03/31/23 metoprolol succinate 25 mg 25 mg PO DAILY 03/31/23 03/31/23 tablet,extended release 24 hr mexiletine 200 mg capsule 200 mg PO DAILY 03/31/23 03/31/23 pregabalin 50 mg capsule 50 mg PO DAILY 03/31/23 03/31/23 Allergies Allergy/AdvReac Type Severity Reaction Status Date / Time gabapentin Allergy Severe swollen Verified 03/31/23 00:35 tongue lisinopril Allergy Intermediate Verified 07/11/22 21:15 Review of Systems ROS Status of ROS 10 or more systems reviewed and unremarkable except as noted in history and below [facility] Medical History (Updated 03/31/23 @ 02:44 by Kimo Maddox MD) Dementia ?F03.90 - Unspecified dementia, unspecified severity, without behavioral disturbance, psychotic disturbance, mood disturbance, and anxiety (ICD-10) Type 2 diabetes mellitus with hyperglycemia ?E11.65 - Type 2 diabetes mellitus with hyperglycemia (ICD-10) End stage renal disease on dialysis ?N18.6 - End stage renal disease (ICD-10) ?Z99.2 - Dependence on renal dialysis (ICD-10) Renal failure, chronic ?N18.9 - Chronic kidney disease, unspecified (ICD-10) Symptomatic bradycardia ?R00.1 - Bradycardia, unspecified (ICD-10) Laceration of scalp ?S01.01XA - Laceration without foreign body of scalp, initial encounter (ICD-10) Contusion of multiple sites ?T07.XXXA - Unspecified multiple injuries, initial encounter (ICD-10) Syncope ?R55 - Syncope and collapse (ICD-10) Fracture of fifth metatarsal bone of left foot ?S92.352A - Displaced fracture of fifth metatarsal bone, left foot, initial encounter for closed fracture (ICD-10) Surgical History Hx of shoulder replacement ?Z96.619 - Presence of unspecified artificial shoulder joint (ICD-10) Family History Father Family history of CHF (congestive heart failure) Family history of cancer Family history of hypertension Family history of stroke Mother Family history of cancer Family history of diabetes mellitus Brother Family history of cancer Social History Within the past year, how often did you have a drink containing alcohol: never Score interpretation: A score less than 3 is consistent with normal alcohol consumption. Smoking status: Former smoker Non-prescribed substance use: denies use Previous occupational history: [employer] service Highest level of school completed/degree received: high school graduate Are you now , , , , never or living with a partner: In a typical week, how many times do you talk on the telephone with family, friends, or neighbors: twice per week How often do you get together with friends or relatives: twice per week How often do you attend latter-day or taoist services: never Do you belong to any clubs or organizations such as latter-day groups unions, fra[employer] or athletic groups, or school groups: no Total score: 1 Score interpretation: A score of less than or equal to 1 indicates the most socially isolated. Little interest or pleasure in doing things: not at all Feeling down, depressed, or hopeless: not at all Feel stressed/tense/nervous/anxious/difficulty sleeping: only a little Exam Constitutional Vital Signs, click to edit/add: Last Vital Signs Temp 97.7 F 03/31/23 00:29 Pulse 81 03/31/23 00:29 Resp 20 03/31/23 00:29 BP 117/68 03/31/23 00:29 Pulse Ox 98 03/31/23 02:00 O2 Del Method Nasal Cannula 03/31/23 02:00 O2 Flow Rate 3 03/31/23 02:00 Common normals: no apparent distress, average body habitus, oriented x3, no limitations, alert and well nourished [facility] Common normals: normocephalic and head/scalp atraumatic Neck & C-Spine Common normals: full ROM Other: when she turns her head to the left she experiences an acute pain right neck sternocleidomastoid musculature Respiratory Common normals: normal respiratory effort, no retractions and no use of accessory muscles Cardio Common normals: regular rate, regular rhythm and S1 normal heart sound GI Common normals: Normal to inspection, nondistended, normoactive bowel sounds present and soft to palpation Extremity Common normals: normal to inspection and full ROM Neuro Common normals: oriented x3, CN's II-XII intact bilaterally, moves all extremities and no focal motor deficits Psych Appearance: grossly normal Course Vital Signs Vital signs: Vital Signs Temperature 97.7 F 03/31/23 00:29 Pulse Rate 81 03/31/23 00:29 Respiratory Rate 20 03/31/23 00:29 Blood Pressure 117/68 03/31/23 00:29 Pulse Oximetry 97 03/31/23 00:29 Oxygen Delivery Method Nasal Cannula 03/31/23 00:29 Oxygen Delivery Flow Rate 3 03/31/23 00:29 Temperature 97.7 F 03/31/23 00:29 Pulse Rate 81 03/31/23 00:29 Respiratory Rate 20 03/31/23 00:29 Blood Pressure 117/68 03/31/23 00:29 Pulse Oximetry 98 03/31/23 02:00 Oxygen Delivery Method Nasal Cannula 03/31/23 02:00 Oxygen Delivery Flow Rate 3 03/31/23 02:00 MDM - Neck Pain/Injury MDM Narrative Medical decision making narrative: patient presents complaining of sharp spasm pain of her right neck when she turns to the left. Points to right sternocleidomastoid muscle. Muscle nontender. Patient reproduced by turning head to the left. Patient treated with norflex, magnesium and soft collar and her symptoms. improved. Her labs with elevated inflammatory marker and elevated creat as she is a dialysis patient. No neuro deficits. Discharged home with a prescription for norflex Lab Data Labs: Lab Results 03/31/23 Range/Units 01:30 WBC 9.4 (4.0-11.0) 10^3/uL RBC 3.74 L (4.20-5.40) 10^6/uL Hgb 9.8 L (12.0-16.0) g/dL Hct 35.1 L (36.0-48.0) % MCV 93.9 (81.0-99.0) fL MCH 26.2 L (26.7-34.0) pg MCHC 27.9 L (29.9-35.2) g/dL RDW 18.3 H (11.0-15.0) % Plt Count 273 (150-450) 10^3/uL MPV 9.7 (9.5-13.5) fL Neut % (Auto) 69.9 (43.0-75.0) % Lymph % (Auto) 16.3 L (20.5-60.0) % Merrick % (Auto) 8.8 (1.7-12.0) % Eos % (Auto) 4.1 (0.9-7.0) % Baso % (Auto) 0.5 (0.2-2.0) % Neut # (Auto) 6.6 H (1.4-6.5) 10^3/uL Lymph # (Auto) 1.5 (1.2-3.8) 10^3/uL Merrick # (Auto) 0.8 (0.3-0.8) 10^3/uL Eos # (Auto) 0.4 (0.0-0.7) 10^3/uL Baso # (Auto) 0.1 (0.0-0.1) 10^3/uL Abs Immat Gran (auto) 0.04 H (0.00-0.03) 10^3/uL Imm/Tot Granulo (auto) 0.4 (0.0-0.5) % ESR >130 H (<=30) mm/hr Sodium 137 (136-145) mmol/L Potassium 5.0 (3.5-5.1) mmol/L Chloride 98 (98-107) mmol/L Carbon Dioxide 30.3 (21.0-32.0) mmol/L Anion Gap 13.7 BUN 48.0 H (7.0-18.0) mg/dL Creatinine 5.36 H* (0.55-1.02) mg/dL Est GFR ( Amer) 9 L (>=60) Est GFR (Non-Af Amer) 8 L (>=60) BUN/Creatinine Ratio 9.0 Glucose 144 H (74-106) mg/dL Calcium 9.5 (8.5-10.1) mg/dL Troponin I High Sens 18.1 (4.0-51.3) pg/mL C-Reactive Protein 3.03 H (<=0.50) mg/dL Discharge Plan Discharge Chief Complaint: Neck Pain/Injury Clinical Impression: Strain of neck muscle Patient Disposition: Home, Self-Care Prescriptions / Home Meds: No Action atorvastatin 40 mg tablet 40 mg PO BEDTIME furosemide 20 mg tablet 60 mg PO BID calcium acetate(phosphat bind) 667 mg capsule 667 mg PO TID citalopram 40 mg tablet 40 mg PO DAILY pantoprazole 40 mg tablet,delayed release (DR/EC) 40 mg PO DAILY pramipexole 0.5 mg tablet 0.5 mg PO QPM sennosides [senna] 8.6 mg tablet 8.6 mg PO BID multivitamin [Daily Multi-Vitamin] Tablet 1 tab PO DAILY docusate sodium [Colace] 100 mg capsule 100 mg PO BID aspirin [Adult Low Dose Aspirin] 81 mg tablet,delayed release (DR/EC) 81 mg PO DAILY oxycodone-acetaminophen 5-325 mg tablet 1 tab PO Q6H PRN (Reason: pain) insulin lispro [Humalog Tempo Pen(U-100)Insuln] 100 unit/mL insulin pen 1 sliding scale dose subcut USEASDIRECTD albuterol sulfate 0.63 mg/3 mL solution for nebulization 0.63 mg continuous nebulization Q4H PRN (Reason: shortness of breath or wheezing) acetaminophen [Arthritis Pain Relief (acetam)] 650 mg tablet extended release 650 mg PO Q8H PRN (Reason: pain) Trelegy Ellipta 100-62.5-25 mcg blister with device 1 inh inhalation DAILY ammonium lactate 12 % lotion 1 applic TOPICAL DAILY buspirone 10 mg tablet 10 mg PO BID metoprolol succinate 25 mg tablet extended release 24 hr 25 mg PO DAILY mexiletine 200 mg capsule 200 mg PO DAILY pregabalin 50 mg capsule 50 mg PO DAILY Instructions: Cervical Strain (ED) Additional Instructions: Norfex twice daily as needed for muscle spasms. Follow up with your doctor for recheck in a couple of days Stand Alone Forms: Portal Instructions Referrals: LILY DEL REAL [Primary Care Provider] - 1 week
--- NOTE | 2023-03-31 01:15 | ECG_ITS ---
[facility] Test Date: 2023-03-31 Pat Name: ART GARCIA Department: Room: - Gender: Female [place]: : 1945 Requested By: LILY DEL REAL Order Number: [id number] Reading MD: FERN CARREON Measurements Intervals [place] Rate: 67 P: -46 [place]: 336 QRS: -47 QRSD: 118 T: 46 QT: 420 QTc: 435 Interpretive Statements 1200 Atrial rhythm 2231 First degree AV block 3234 Anteroseptal myocardial infarction, age undetermined 7200 Abnormal left axis deviation 9150 abnormal ECG Electronically Signed On 03-31-2023 7:21:04 EST by FERN CARREON
[2023-03-31 01:39] LABS: Basophils Absolute Auto 0.1 10^3/uL (0.0-0.1); Basophils Percent Auto 0.5 % (0.2-2.0); Eosinophils Absolute Auto 0.4 10^3/uL (0.0-0.7); Eosinophils Percent Auto 4.1 % (0.9-7.0); Hematocrit 35.1 % (36.0-48.0); Hemoglobin 9.8 g/dL (12.0-16.0); Immature Granulocytes Abs Auto 0.04 10^3/uL (0.00-0.03); Immature Granulocytes Pct Auto 0.4 % (0.0-0.5); Lymphocytes Absolute Auto 1.5 10^3/uL (1.2-3.8); Lymphocytes Percent Auto 16.3 % (20.5-60.0); Mean Corpuscular HGB Conc 27.9 g/dL (29.9-35.2); Mean Corpuscular Hemoglobin 26.2 pg (26.7-34.0); Mean Corpuscular Volume 93.9 fL (81.0-99.0); Mean Platelet Volume 9.7 fL (9.5-13.5); Monocytes Absolute Auto 0.8 10^3/uL (0.3-0.8); Monocytes Percent Auto 8.8 % (1.7-12.0); Neutrophils Absolute Auto 6.6 10^3/uL (1.4-6.5); Neutrophils Percent Auto 69.9 % (43.0-75.0); Platelet Count 273 10^3/uL (150-450); Red Blood Count 3.74 10^6/uL (4.20-5.40); Red Cell Distribution Width 18.3 % (11.0-15.0); White Blood Count 9.4 10^3/uL (4.0-11.0)
[2023-03-31] MEDS: MAGNESIUM SULFATE IN WATER 2 GM/50 ML PREMIX IV (01:50)
[2023-03-31] MEDS: ORPHENADRINE 60 MG/ 2 ML VIAL IV (01:50)
[2023-03-31 01:54] LABS: Erythrocyte Sedimentation Rate >130 mm/hr (<=30)
[2023-03-31 01:58] LABS: Anion Gap 13.7; C Reactive Protein 3.03 mg/dL (<=0.50); Calcium 9.5 mg/dL (8.5-10.1); Carbon Dioxide 30.3 mmol/L (21.0-32.0); Chloride 98 mmol/L (98-107); Estimated GFR (African America 9 (>=60); Estimated GFR (Non-African Ame 8 (>=60); Glucose 144 mg/dL (74-106); Sodium 137 mmol/L (136-145); Troponin I High Sensitivity 18.1 pg/mL (4.0-51.3)
[2023-03-31 02:00] VITALS: O2SAT 98
== END 2023-03-31 03:07 | disposition home or self-care (01) ==
PROVIDERS: Emergency Provider Internal Medicine; PCP Internal Medicine
DX: S16.1XXA Strain of muscle, fascia and tendon at neck level, initial encounter (principal); Z79.82 Long term (current) use of aspirin; Z79.4 Long term (current) use of insulin; Z79.899 Other long term (current) drug therapy; F03.90 Unspecified dementia, unspecified severity, without behavioral disturbance, psychotic disturbance, mood disturbance, and anxiety; E11.22 Type 2 diabetes mellitus with diabetic chronic kidney disease; N18.6 End stage renal disease; Z99.2 Dependence on renal dialysis; Z96.619 Presence of unspecified artificial shoulder joint; Z87.891 Personal history of nicotine dependence; X58.XXXA Exposure to other specified factors, initial encounter
CPT/HCPCS: 36415; 80048; 84484; 85025; 85652; 86140; 93005; 96365; 96375; 99284; J2360; J3475

== ENCOUNTER 2023-04-22 07:47 | Outpatient (OUT) | payer MEDICARE, SELFPAY ==
--- NOTE | 2023-04-22 07:50 | CT_ITS ---
[address] [address] Patient Name: ART GARCIA MRN: [id number] date: 1945 Sex: F Assigned Patient Location: CT Current Patient Location: CT Accession/Order Number: [id number] Exam Date: 04/22/2023 08:56 Report Date: 04/22/2023 10:35 At the request of: NEYDA GRAHAM Procedure: CT abdomen pelvis wo con EXAMINATION: CT abdomen pelvis wo con HISTORY: Abdominal Distention R14.0 COMPARISON: No relevant comparison available. TECHNIQUE: Axial, Coronal, and Sagittal images were created without IV contrast. Dose reduction techniques were achieved by using automated exposure control and/or adjustment of mA and/or kV according to patient size and/or use of iterative reconstruction technique. FINDINGS: LUNG BASES: Moderate cardiomegaly. Pacemaker wires. Consolidation the right lower lobe. Loculated right pleural effusion or thickening. The pleural effusion measures 4.8 cm LIVER: No enlargement, atrophy, abnormal density, or significant focal lesion. BILIARY: No dilatation or calcification. PANCREAS: Severe diffuse atrophy SPLEEN: No enlargement or focal lesion. ADRENALS: No mass or enlargement. KIDNEYS: Bilateral renal cortical atrophy. No hydronephrosis or obstructing nephrolithiasis. 8 mm hypodensity lower pole the right kidney axial image 62, indeterminate. 7 mm hypodensity left renal cortex axial image 38, indeterminate BOWEL/MESENTERY: Large amount of stool in the rectum which measures 7.3 cm transversely. Moderate colonic diverticulosis without evidence of acute diverticulitis. Nonobstructive bowel gas pattern. AORTA/VASCULAR: No aortic aneurysm. Extensive atherosclerosis RETROPERITONEUM: No mass or adenopathy. LYMPH NODES: No adenopathy. URINARY BLADDER: No visible focal wall thickening, lesion, or calculus. PELVIC ORGANS: Hysterectomy ABDOMINAL WALL: Soft tissue attenuation ventral abdominal wall fat possibly related to injections. 1.5 cm periumbilical hernia containing mesenteric fat BONES: No bony lesion or fracture. Moderate to severe degenerative changes of the spine and hips OTHER: Negative. CT/CT abdomen pelvis wo con IMPRESSION: 4.8 cm loculated right pleural effusion with right lower lobe consolidation/atelectasis Bilateral subcentimeter renal cortical hypodensities, indeterminate Large amount of stool in the rectum Electronically authenticated by: GENARO MARTINEZ Date: 04/22/2023 10:35
--- OUTSIDE RECORDS SUMMARY | 2023-04-22 07:55 | XMS_ITS | CCD ---
Author Name Unknown Address [address] [place] [address] Organization [facility] Care Team Providers Care Patient Care Technician Instructor Name Role Phone COLBY KAY Admitting Unavailable MARCUS BELCHER Referring Unavailable LILY ALDRICH Primary Care Unavailable YOVANI AYON Attending Unavailable [place] Procedure Practitioner Unavailab CHELI Brar Surgeon Unavailable Lily Aldrich Primary Care Provider [phone] Narinder Toussaint Attending Provider [phone] Adalberto Lewis Attending Provider [phone] Narinder Toussaint Unavailable Geronimo Fofana Unavailable Tessie Walker Unavailable Maxime Bhatti Unavailable PETER Aldrich Primary Care Provider [phone] FERNANDO Walker Attending Provider MD Geronimo Fofana Other Provider RAFAEL Banks Other Provider UnavailRAFAEL Garcia Other Provider Unavailable MD David South Other Provider [phone] FERNANDO Walker Other Provider MD Ronald Gutierrez Other Provider MD Maxime Bhatti Other Provider [phone] MD Annette Tenorio Admit Provider MD Annette Tenorio Attending Provider [phone] MD Yamileth Levi II Other Provider MD Geronimo Fofana Attending Provider PETER Aldrich Primary Care Provider MD Geronimo Fofana Other Provider RAFAEL Banks Other Provider UnavailRAFAEL Garcia Other Provider Unavailable MD David South Other Provider FERNANDO Walker Other Provider MD Ronald Gutierrez Other Provider [phone] MD Maxime Bhatti Other Provider MD Annette Tenorio Admit Provider MD Anntete Tenorio Attending Provider [phone] MD Yamileth Levi II Other Provider MD Geronimo Ffoana Attending Provider MD Maxime Bhatti Attending Provider PETER Aldrich Primary Care Provider [phone] MD Azar Palmer Jr Emergency Provider MD Gary Almaguer Admit Provider MD Gary Almaguer Attending Provider MD Narinder Toussaint Other Provider MD Wood Zavala Other Provider MD Jackson De Santiago Other Provider MD Godwin Larios Other Provider MD Geronimo Fofana Other Provider MD Simone Godoy Attending Provider PETER Aldrich Primary Care Provider MD Geronimo Fofana Attending Provider [phone] MD Maxime Bhatti Attending Provider PETER Aldrich Primary Care Provider MD Azar Palmer Jr Emergency Provider MD Gary Almaguer M Admit Provider [phone] MD Narinder Toussaint Other Provider MD Wood Zavala Other Provider MD Jackson De Santiago Other Provider [phone] MD Godwin Larios Other Provider MD Geronimo Fofana Other Provider MD Simone Godoy Attending Provider MD Maxime Bhatti Attending Provider [phone] DO Horacio Moreno Emergency Provider MD Jamal Schaefer Admit Provider [phone] MD Wilmer Azevedo Other Provider [phone] MD Teresa Pagan Attending Provider [phone] LILY ALDRICH Admitting Unavailable NASIMA, DR BAUTISTA Attending Unavailable NASIMA, DR BAUTISTA Consulting Unavailable NASIMA, DR BAUTISTA Primary Care Unavailable ZIEBER, DR ZEKE Kulkarni Consulting Unavailable NASIMA, DR BAUTISTA Primary Care Unavailable MICHELLE, DR GENARO Vasquez Consulting Unavailable SAMSA ., KIMBERLY Attending Unavailable SAMSA ., KIMBERLY Admitting Unavailable SAM ., KIMBERLY Consulting Unavailable NASIMA, DR BAUTISTA Primary Care Unavailable MICHELLE, DR GENARO Vasquez Consulting Unavailable ELTAHAWY, DR [...] Admitting Unavailable SHAIKH Brendon MARQUEZ Attending Unavailable DR DARINEL MORATAYA Consulting Unavailable MICHELLE, DR GENARO Vasquez Consulting Unavailable ALEA, DR ZEKE Kulkarni Consulting Unavailable PAULELHAM MOLINA Consulting Unavailable TOMASA ., JOSE Consulting Unavailable FAWTOM, H Consulting Unavailable ALEXEI, DR JULIUS aErly Admitting Unavailable NADEREShad, DR JULIUS Early Attending Unavailable NASIMA, DR BAUTISTA Primary Care Unavailable MICHELLE, DR GENARO Vasquez Consulting Unavailable SAMSA ., KIMBERLY Procedure Practitioner Unavailab jennyfer COSBY, DR ZEKE Kulkarni Consulting Unavailable ALEXEI, DR JULIUS Early Consulting Unavailable SAMSA ., KIMBERLY Consulting Unavailable YOVANNY, PETER Consulting Unavailable TOMASA ., JOSE Consulting Unavailable ALMA, SHAIKH Brendon Consulting Unavailable GENARO AMOS Consulting Unavailable DARAMOLANIKI Consulting Unavailable SAÚL ENCARNACION Consulting Unavailable NASIMA, DR BAUTISTA Consulting Unavailable NASIMA, DR BAUTISTA Primary Care Unavailable SAMSA ., KIMBERLY Attending Unavailable SAMSA ., KIMBERLY Admitting Unavailable SAMSA ., KIMBERLY Consulting Unavailable NASIMA, DR BAUTISTA Primary Care Unavailable NIKUNJ CONNOLLY Consulting Unavailable CATHLEEN, NIKUNJ Attending Unavailable CATHLEEN, NIKUNJ Admitting Unavailable PENNIE AWAD Consulting Unavailable NASIMA, DR BAUTISTA Primary Care Unavailable MISC, DR HANNON Attending Unavailable MISC, DR HANNON Admitting Unavailable MISC, DR HANNON Consulting Unavailable NASIMA, DR BAUTISTA Primary Care Unavailable MISC, DR HANNON Admitting Unavailable MISC, DR HANNON Attending Unavailable MISC, DR HANNON Consulting Unavailable BAKHOUS, AZIZ Admitting Unavailable BAKHOUS, AZIZ Attending Unavailable BAKARNULFOS, AZIZ Consulting Unavailable DR LILY ALDRICH Primary Care Unavailable DR LILY ALDRICH Primary Care Unavailable ALEA, DR ZEKE Kulkarni Consulting Unavailable SAMSA ., KIMBERLY Attending Unavailable SAMSA ., KIMBERLY Admitting Unavailable SAMSA ., KIMBERLY Consulting Unavailable Nasima II, Dr. Lily Elizabeth Primary Care Dorota vailable Nasima II, Dr. Lily Elizabeth Primary Care Dorota vailable Nasima II, Dr. Lily Elizabeth Primary Care Dorota vailable PETER Aldrich Primary Care Provider MD Azar Palmer Jr Emergency Provider MD Gary Almaguer Admit Provider [phone] MD Gary Almaguer Attending Provider [phone] PETER Aldrich Lily Primary Care Provider MD Azar Palmer Jr Emergency Provider MD Gary Almaguer Admit Provider [phone] MD Narinder Toussaint Other Provider MD Wood Zavala Other Provider MD Jackson De Santiago Other Provider MD Godwin Larios Other Provider MD Geronimo Fofana Other Provider DO Carlton Mtz Attending Provider [phone] MD Edie Michel Other Provider DO Horacio Moreno Emergency Provider [phone] DO Pennie Love Admit Provider [phone] DO Pennie Love Attending Provider TuDO Horacio foss Emergency Provider DO Pennie Love Admit Provider [phone] MD Teresa Pagan Attending Provider MD Edie Michel Attending Provider PROVIDER, UNKNOWN Attending Unavailable PROVIDER, UNKNOWN Admitting Unavailable PETER Aldrich Cornwall Primary Care Provider MD Azar Palmer Jr [...] Admit Provider MD Teresa Pagan Attending Provider MD Edie Michel Attending Provider MD Moo Villanueva Other Provider MD Jamal Schaefer Admit Provider MD Annette Tenorio Attending Provider LILY ALDRICH Primary Care Physician DO Carlton Mtz Admit Provider MD Tatiana Loya Attending Provider PETER Adlrich Primary Care Provider MD Edie Michel Other Provider MD Wood Zavala Other Provider MD Moo Villanueva Other Provider MD Narinder Toussaint Other Provider MD Azar Palmer Jr Emergency Provider MD Wood Zavala Attending Provider DOLCE, STEPHAN R Attending Unavailable DOLCE, STEPHAN R Referring Unavailable DOLCE, STEPHNA R Attending Unavailable LILY ALDRICH Attending Unavailable HEMDIANNA MCLAIN M Attending Unavailable LILY ALDRICH Attending Unavailable DOLCE, STEPHAN R Attending Unavailable MD Marcel Arraega Emergency Provider MD Jamal Schaefer Attending Provider DolJulius gallagher Attending Unavailable Dolce, Julius Hull Attending Unavailable DolceJulius Attending Unavailable Dolce, Stephan R Attending Unavailable Dolce, Stephan R Admitting Unavailable Dolce, Stephan R Referring Unavailable Dolce, Stephan R Referring Unavailable Dolelliott, Julius Hull Attending Unavailable PETER Aldrich Primary Care Provider MD Moo Villanueva Other Provider [phone] MD Edie Michel Other Provider MD Narinder Toussaint Other Provider DO Santiago Chi Emergency Provider [phone] MD Teresa Pagan Admit Provider MD Teresa Pagan Attending Provider [phone] THOMAS SHORE Referring Unavailable STEENHOFF, ANALILIA Referring Unavailable STEENHOFF, ANALILIA Referring Unavailable PRASHANTH, LAURA Attending Unavailable ELTAHAWKavita, EHAB Attending Unavailable NADEEM SANCHEZ Attending Unavailable PRASHANTH, LAURA Attending Unavailable DES, ANGELICA Referring Unavailable PRASHANTH, LAURA Attending Unavailable DANIEL, NADEEM Attending Unavailable RYAN AHUJA Attending Unavailable RONA, HARJITMED Attending Unavailable JOSEFINA, HANI Admitting Unavailable NEISHA AVILA Referring Unavailabl e PETER Aldrich Primary Care Provider [phone] DO Santiago Chi Emergency Provider MD Teresa Pagan Admit Provider MD Gary Almaguer Attending Provider MD Geronimo Fofana Other Provider DO Danny Mcclelland Other Provider MD Maxime Bhatti Other Provider Edie Michel Attending Unavailable Edie Michel Admitting Unavailable Lily Aldrich Primary Care Unavailable Lily Aldrich Primary Care Unavailable Maxime Bhatti Admitting Unavailabl Maxime Gamble Attending Unavailabl e Lily Aldrich Primary Care Unavailable Maxime Bhatti Attending Unavailabl e Maxime Bhatti Admitting Unavailabl e Moo Villanueva Consulting Jamal Guerrero Admitting Unavailable Lily Aldrich Primary Care Unavailable Annette Tenorio Attending Unavailable Edie Michel Consulting Unavailable Narinder Toussaint Consulting Unavailable Narinder Tosusaint Consulting Unavailable Lily Aldrich Primary Care Unavailable Jamal Schaefer Admitting Unavailable Gary Almaguer Attending Unavailable Lily Aldrich Primary Care Unavailable Alamary carmen, Alaa Attending Unavailable Moo Villanueva Consulting Carlton Vora Admitting Unavailabl e Anand, Edie Consulting Unavailable Elashi, Essam Consulting Unavailable Pagan, Teresa Attending Unavailable Jamal Schaefer Admitting Unavailable Lily Aldrich Primary Care Unavailable Wilmer Azevedo Consulting Unavailable Elashi, Essam Consulting Unavailable Lucas, Wood Consulting Unavailable Singhania, Jackson Consulting Unavailable Larios, Godwin Consulting Unavailable Bakhous, Aziz Consulting Unavailable Carlton Mtz Attending Unavailabl e Elashi, Essam Consulting Unavailable Lily Aldrich Primary Care Unavailable Gary Almaguer M Admitting Unavailable Lucas, Wood Consulting Unavailable Singhania, Jackson Consulting Unavailable Larios, Godwin Consulting Unavailable Bakhous, Aziz Consulting Unavailable Anand, Edie Consulting Unavailable Anand, Edie Consulting Unavailable Latasha, Teresa Attending Unavailable Lily Aldrich Primary Care Unavailable Pennie Love Admitting Unavailable Lucas, Wood Consulting Unavailable Nasima Lily Primary Care Unavailable Bakhous, Aziz Consulting Unavailable Pagan, Teresa Admitting Unavailable Rosina, Gary M Attending Unavailable Danny Mcclelland Consulting Unavailable Maxime Bhatti Consulting UnavailAzar Leyva Jr Attending Unavailable Azar Palmer Jr Admitting Unavailable Lily Eldridge Primary Care Unavailable Lucas, Wood Attending Unavailable Lily Aldrich Primary Care Unavailable Lucas, Wood Admitting Unavailable Unavailable Unavailable Unavailable Allergies Allergy Classification Reported Allergen(s) Allergy Type Date of Onset Reaction(s) Facility (1 source) Benzapril; Translations: [Unknown] Propensity to adverse reactions (disorder) 2 [facility] Rep[facility] (20 sources) Lisinopril; Translations: [lisinopril] Drug Allergy 3 Cough, Unknown [facility] (2 sources) benazepril; Translations: [BENAZEPRIL] Drug Allergy 0 [facility] Rep[facility] (6 sources) gabapentin; Translations: [GABAPENTIN] Drug Allergy 3 Swelling of Lip/Tongue/Thro at [facility] (1 source) meloxicam; Translations: [MELOXICAM] Drug Allergy 6 [facility] Repository Medications Current Medications Medication Drug Class(es) Dates Sig (Normalized) Sig (Original) 8 hr acetaminophen 650 mg extended release oral tablet (4 sources) Start: 03-05-2023 take 1 tablet by mouth every twelve hours Acetaminophen (Arthritis Pain Reliever) 650 mg tablet extended release Active 650 MG PO Q12H March 05, 2023 12:00am acetaminophen 325 mg / oxyCODONE hydrochloride 5 mg oral tablet (20 sources) Opioid Agonist Start: 12-06-2022 End: 04-05-2023 take 1 tablet by mouth every four to six hours Oxycodone-Acetamino phen Active 1 TAB PO EVERY 4-6 HOURS 12 3 April 05, 2023 Start: 05-16-2020 End: 06-26-2021 take 1 tablet [...] daily busPIRone hydrochloride 10 mg oral tablet (4 sources) Start: 03-05-2023 take 10 mg by mouth twice daily Buspirone Active 10 MG PO Twice daily March 05, 2023 12:00am calcium acetate 667 mg oral capsule (17 sources) Start: 02-26-2022 take 667 mg by [...] MG PO Daily November 24, 2019 11:00pm cyclobenzaprine hydrochloride 5 mg oral tablet (20 sources) Muscle Relaxant Start: 04-05-2023 take 10 mg by mouth once daily at bedtime Cyclobenzaprine Active 10 MG PO Daily at bedtime 0 April 05, 2023 12:00am Start: 11-19-2016 End: 09-07-2019 take 1 tablet by mouth three times daily Cyclobenzaprine Discontinued TABLET November 18, 2016 11:00pm September 07, 2019 9:42am 1 tablet PO TID 1 ml darbepoetin theodore 0.06 mg/ml injection (7 sources) Erythropoiesis-stimulating Agent Start: 12-29-2022 Darbepoetin Theodore In Polysorbat (Aranesp (In Polysorbate)) 60 mcg/mL Solution Active 80 MCG IV every week December 29, 2022 12:00am Start: 12-29-2022 Darbepoetin Al fa In Polysorbat (Aranesp (In Polysorbate)) 60 mcg/mL Solution Active MCG SOLUTION December 29, 2022 12:00am diclofenac sodium 0.01 mg/mg topical gel (11 sources) Nonsteroidal Anti-inflammatory Drug Start: 10-31-2022 Diclofenac Sodium (Voltaren Arthritis Pain) 1 % Gel Active 4 GM TOPICAL Four times daily 0 October 30, 2022 11:00pm epoetin theodore-epbx 49292 UNT/ML Injectable Solution [Retacrit] (6 sources) Retacrit 30435 UNIT/ML as directed Injection Active 15 ml ferric carboxymaltose 50 mg/ml injection (1 source) Start: 05-16-2021 Injectafer 750 MG/15ML as directed Intravenous every 2 weeks for 14 days May, Active Fluticasone-Umeclidin- Vilanter (18 sources) Anticholinergic, Corticosteroid, beta2-Adrenergic Agonist Start: 12-29-2022 Fluticasone-Ume cli din-Vilanter (Trelegy Ellipta) 100-62.5-25 mcg blister with device [...] Furosemide Active 60 MG PO Twice daily October 30, 2022 11:00pm Take twice a [...] tablet Orally bid for 90 day(s) Active Insulin Aspart 100 UNIT/ML (9 sources) Insulin Aspart 1 00 UNIT/ML as directed Subcutaneous SLIDING SCALE BEFORE EACH MEAL Active Insulin Lispro (Humalog Kwikpen Insulin) 100 unit/mL insulin pen (7 sources) Start: 12-29-2022 inject 1 dose by subcutaneous injection at bedtime Insulin Lispro (Humalog Kwikpen Insulin) 100 unit/mL insulin pen Active 1 sliding scale dose SUBCUT Before meals and at bedtime December 29, 2022 12:00am Start: 12-29-2022 Insulin Lispro (Humalog Kwikpen Insulin) [...] every week for 35 days Nov, Active lidocaine 0.04 mg/mg medicated patch (1 source) Antiarrhythmic, Amide Local Anesthetic Start: 04-05-2023 apply 1 dose topically three times daily Lidocaine (Lidocaine Pain Relief) 4 % Adhesive Patch,Medicated Active 1 PATCH TOPICAL Three times daily 0 April 05, 2023 12:00am metoprolol tartrate 25 mg oral tablet (14 sources) beta-Adrenergic Madhu Start: 03-05-2023 take 25 mg by mouth once daily Metoprolol Tartrate Active 25 MG PO Daily March 05, 2023 12:00am Start: 12-09-2022 End: 12-16-2022 take 12.5 mg by mouth twice daily Metoprolol Succinate Discontinued 12.5 MG PO Twice daily December 08, 2022 11:00pm December 16, 2022 4:06pm mexiletine hydrochloride 200 mg oral capsule (3 sources) Antiarrhythmic Start: 03-07-2023 take 200 mg by [...] 12:00am ondansetron 4 mg disintegrating oral tablet (7 sources) Serotonin-3 Receptor Antagonist Start: 12-29-2022 take [...] Active pramipexole dihydrochloride 0.5 mg oral tablet (20 sources) Nonergot Dopamine Agonist Start: 12-06-2022 take 0.5 mg by mouth once daily at bedtime Pramipexole Active 0.5 MG PO Daily at bedtime April 01, 2023 12:00am pregabalin 50 mg oral capsule (2 sources) Start: 04-01-2023 take 1 capsule by mouth once daily Pregabalin (Lyrica) 50 mg capsule Active 50 MG PO Daily April 01, 2023 12:00am Trelegy Ellipta (2 sources) Trelegy Ellipta Active Vitamin D (Cholecalciferol) 25 MCG (1000 UT) (6 sources) take 1 tablet by mouth once daily Vitamin D (Cholecalciferol) 25 MCG [...] Hydrocodone-Acetaminophen Discontinued 1 TAB PO Q6H 20 5 May 18, 2020 November 16, 2021 12:04pm Start: 11-25-2019 End: 05-16-2020 take 1 tablet by mouth every six hours Hydrocodone-Acetaminophen Discontinued 1 TAB PO Q6H 28 7 November 25, 2019 May 16, 2020 12:41pm amiodarone hydrochloride 200 mg oral tablet (20 sources) Antiarrhythmic Start: 12-30-2022 End: 01-02-2023 take 200 mg by mouth once daily Amiodarone Discontinued 200 MG PO Daily December 30, 2022 12:00am January 02, 2023 10:40am Start: 12-16-2022 End: 12-29-2022 take 400 mg by mouth twice daily Amiodarone Discontinued 400 MG PO Twice daily 56 14 December 16, 2022 12:00am December 29, 2022 10:22pm Start: 12-16-2022 End: 12-29-2022 take 400 mg by mouth once daily Amiodarone Discontinued 200 MG PO Daily 30 December 16, 2022 12:00am December 29, 2022 10:22pm start after 400 mg twice daily for 14 days amoxicillin 500 mg / clavulanate 125 mg oral tablet (12 sources) Penicillin-class Antibacterial Start: 10-29-2022 End: 10-31-2022 [...] 17, 2022 2:59pm take 1 tablet by darcy th every twelve hours Coreg 12.5 MG 1 Tablet Orally Twice a day Active docusate sodium 50 mg oral capsule (20 [...] 22, 2022 7:28pm take 1 capsule by [facility] every twenty-four hours Colace 100 MG 1 [...] 06, 2019 11:00pm May 16, 2020 12:40pm glucose 0.4 mg/mg oral gel (20 sources) Start: 11-20-2021 End: 04-01-2023 Dextrose (Glutose-15) 40 % Gel Discontinued 0.6 GM PO PRN 112.5 November 19, 2021 11:00pm April 01, 2023 6:44pm hydrALAZINE hydrochloride 50 mg oral tablet (20 sources) Arteriolar Vasodilator Start: 11-19-2016 End: 05-17-2022 take 1 tablet by mouth twice daily Hydralazine Discontinued 50 MG PO Three times daily November 18, 2016 11:00pm May 17, 2022 3:16pm 1 tablet PO BID take 1 tablet by [facility] every eight hours hydrALAZINE HCl 50 MG 1 tablet with food Orally Three times a day for 90 Active Insulin Aspart U-100 (Novolog Flexpen U-100 Insulin) 100 unit/mL (3 mL) Insulin Pen (20 sources) Start: 11-20-2021 End: 03-05-2023 inject 1 [...] (Humalog U-10 0 Insulin) 100 unit/mL solution (14 sources) Start: 05-17-2022 End: 05-17-2022 Insulin Lispro (Humalog U-10 0 Insulin) 100 unit/mL solution Discontinued SOLUTION May 16, 2022 11:00pm May 17, 2022 3:46pm Start: 05-17-2022 End: 05-17-2022 Insulin Lispro (Humalog U-10 0 Insulin) 100 unit/mL solution Discontinued SOLUTION May 17, 2022 12:00am May 17, 2022 4:46pm insulin isophane, human 70 unt/ml / [...] 19, 2021 11:00pm February 26, 2022 12:06pm magnesium oxide 400 mg oral tablet (3 sources) Start: 03-07-2023 End: 04-01-2023 take 400 mg by mouth once daily Magnesium Oxide Discontinued 400 MG PO Daily March 07, 2023 12:00am April 01, 2023 6:45pm midodrine hydrochloride 5 mg oral tablet (20 sources) alpha-Adrenergic Agonist Start: 12-06-2022 End: 12-07-2022 take 1 dose by mouth once daily at bedtime Midodrine Discontinued 5 MG PO Three times daily December 05, 2022 11:00pm December 07, 2022 5:37am do not give last dose of day after 6PM or within 4 hrs of bedtime Start: 10-29-2022 End: 04-01-2023 take 5 mg by mouth three times daily Midodrine Discontinued 5 MG PO Three times daily December 06, 2022 11:00pm April 01, 2023 6:45pm nystatin [id number] unt/ml oral suspension (6 sources) Polyene Antifungal Start: 01-02-2023 End: 03-05-2023 take [id number] [IU] by mouth four times daily Nystatin Discontinued [id number] UNIT PO Four times daily 140 7 January 02, 2023 12:00am March 05, 2023 5:48pm omeprazole 40 mg delayed release oral capsule (20 sources) Proton Pump Inhibitor Start: 09-07-2019 End: 05-02-2022 take 40 mg by mouth once daily Omeprazole Discontinued 40 MG PO Daily September 06, 2019 11:00pm May 02, 2022 11:56am predniSONE 10 mg oral tablet (11 sources) Start: 12-06-2022 End: 12-29-2022 take 10 mg by mouth once daily Prednisone Discontinued 10 MG PO Daily December 05, 2022 11:00pm December 29, 2022 10:19pm 10 mg x3 days Start: 12-06-2022 Prednisone Act shea MG TABLET December 06, 2022 12:00am RETACRIT INJECTION (6 sources) Start: 02-08-2022 RETACRIT INJEC TION Jan, 1000 mL Sennosides (Senna) 8.6 mg tablet (18 sources) Start: 03-05-2023 End: 04-01-2023 take 1 tablet by mouth twice daily Sennosides (Senna) 8.6 mg tablet Discontinued 8.6 MG PO Twice daily March 05, 2023 12:00am April 01, 2023 6:47pm Start: 03-05-2023 take 1 tablet by darcy th twice [...] PO Twice daily May 17, 2022 12:00am spironolactone 25 mg oral tablet (20 sources) [...] (20 sources) Angiotensin 2 Receptor Madhu Start: 05-02-2022 take 160 mg by mouth [...] Translations: [ANXIETY DISORDER UNSPECIFIED] Onset: 2 Chronic Blindness and vision defects (7 sources) Eye / vision finding; Translations: [Unspecified visual disturbance] Onset: 4 04-01-2023 Episodic Cardiac dysrhythmias (20 sources) Nonsustained ventricular tachycardia ; Translations: [Nonsustained ventricular tachycardia] Onset: 3 10-30-2022 Chronic Chronic kidney disease (20 sources) Chronic kidney [...] initial encounter] Onset: 3 Chronic Conduction disorders (8 sources) Finding of cardiovascular device; Translations: [Encounter for adjustment and management of automatic implantable cardiac defibrillator] Onset: 4 03-07-2023 Chronic Congestive heart failure; nonhypertensive (20 sources) Congestive heart failure; Translations: [Heart failure, unspecified] Onset: 1 Resolved: 2 Chronic Coronary atherosclerosis and other heart disease (20 sources) Coronary arteriosclerosis; Translations: [Atherosclerotic heart disease of alga[place]q coronary artery without angina pectoris] Onset: 2 11-16-2021 Chronic Deficiency and other anemia (15 sources) Anemia of chronic renal failure; Translations: [Anemia in chronic kidney disease] Chronic Deficiency and other anemia (7 sources) Anemia in chronic kidney disease; Translations: [ANEMIA IN CHRONIC KIDNEY DISEASE] Onset: 1 Resolved: 2 Chronic Deficiency and other anemia (20 sources) Anemia; Translations: [Anemia, unspecified] 11-16-2021 Episodic Diabetes mellitus with complications (20 sources) Disorder of kidney due to diabetes mellitus; Translations: [Type 2 diabetes mellitus with diabetic nephropathy] Onset: 1 Resolved: 2 Chronic Diabetes mellitus without complication (20 sources) Diabetes mellitus; Translations: [Type 2 diabetes mellitus without complications] Onset: 3 11-16-2021 Chronic Diseases of white blood cells (11 sources) Leukocytosis; Translations: [Elevated white blood cell count, unspecified] Onset: 3 12-09-2022 Chronic Disorders of lipid metabolism (20 sources) Mixed hyperlipidemia; Translations: [Mixed hyperlipidemia] Onset: 1 Resolved: 2 Chronic Epilepsy; convulsions (8 sources) Neurological finding; Translations: [Unspecified convulsions] 03-05-2023 Episodic Esophageal disorders (1 source) Gastro-esophageal reflux disease without esophagitis; Translations: [GERD WITHOUT ESOPHAGITIS] Onset: 2 Chronic Essential hypertension (20 sources) Essential hypertension; Translations: [Essential (primary) hypertension] Onset: 3 11-16-2021 Chronic Fluid and electrolyte disorders (20 sources) Hyponatremia; Translations: [Hypo-osmolality and hyponatremia] Onset: 2 11-16-2021 Episodic Gastrointestinal hemorrhage (16 sources) Gastrointestinal hemorrhage; Translations: [Hemorrhage of anus [...] episode, unspecified; Translations: [Depression] Onset: 2 Chronic Occlusion or stenosis of precerebral arteries (3 sources) Bilateral stenosis of carotid arteries; Translations: [Occlusion and stenosis of bilateral carotid arteries] Onset: 4 04-02-2023 Chronic Osteoarthritis (20 sources) Degenerative joint disease of shoulder region; Translations: [Primary osteoarthritis, left shoulder] Onset: 2 10-30-2022 Chronic Other circulatory disease (14 sources) Acquired arteriovenous fistula aneurysm; Translations: [Arteriovenous fistula, acquired] Chronic Other circulatory disease (2 sources) Arteriovenous fistula, acquired Chronic Other circulatory disease (12 sources) Arteriovenous fistula; Translations: [Arteriovenous fistula, acquired] 10-29-2022 Chronic Other circulatory disease (4 sources) Low blood pressure; Translations: [Hypotension, unspecified] 03-05-2023 Episodic Other circulatory disease (5 sources) Hypotension, unspecified; Translations: [Hypotension, unspecified] Onset: 4 03-05-2023 Episodic Other circulatory disease (2 sources) Orthostatic hypotension; Translations: [Orthostatic hypotension] Onset: 3 Episodic Other diseases of kidney and ureters (15 sources) Hyperparathyroidism due to renal insufficiency; Translations: [Secondary hyperparathyroidism of renal origin] Chronic Other diseases of kidney and ureters (20 sources) Secondary hyperparathyroidism of renal origin; Translations: [Secondary hyperparathyroidism (of renal origin)] Onset: 1 Resolved: 2 Chronic Other diseases of kidney and ureters (10 sources) Secondary hyperparathyroidism; Translations: [Secondary hyperparathyroidism of renal origin] 12-07-2022 Chronic Other hematologic conditions (18 sources) Raised cardiac enzyme or marker; Translations: [Other specified abnormalities of plasma proteins] 02-22-2022 Episodic Other hematologic conditions (6 sources) Other specified abnormalities of plasma proteins; Translations: [Other abnormal blood chemistry] 02-22-2022 Episodic Other injuries and conditions due to external causes (12 sources) Minor head injury; Translations: [Unspecified injury of head, initial encounter] 10-30-2022 Episodic Other injuries and conditions due to external causes (16 sources) Unspecified injury of head, initial encounter; Translations: [Head injury, unspecified] 10-29-2022 Episodic Other injuries and conditions due to external causes (11 sources) Injury of head; Translations: [Unspecified injury of head, initial encounter] 12-06-2022 Episodic Other injuries and conditions due to external causes (1 source) Heat syncope, initial encounter; Translations: [Heat syncope, initial encounter] Onset: Episodic Other nervous system disorders (15 sources) Chronic pain; Translations: [Other chronic pain] Chronic Other nervous system disorders (20 sources) Acute postoperative pain; Translations: [Other acute postprocedural pain] 05-18-2020 Episodic Other non-traumatic joint disorders (15 sources) Rotator cuff tear arthropathy; Translations: [Other specific arthropathies, not elsewhere classified, left shoulder] Chronic Other non-traumatic joint disorders (20 sources) Shoulder pain; Translations: [Pain in right shoulder] 11-16-2021 Episodic Other non-traumatic joint disorders (6 sources) Multiple joint pain; Translations: [Pain in unspecified joint] 12-30-2022 Episodic Other nutritional; endocrine; and metabolic disorders (15 sources) Body mass index 30+ - obesity; Translations: [Body mass index (BMI) 30.0-30.9, adult] Chronic Other nutritional; endocrine; and metabolic disorders (4 sources) Hypomagnesemia; Translations: [Hypomagnesemia] Onset: 3 03-07-2023 Chronic Other nutritional; endocrine; and metabolic disorders (5 sources) Hypomagnesemia; Translations: [Disorders of magnesium metabolism] Onset: 3 03-05-2023 Chronic Other skin disorders (6 sources) Tongue swelling; Translations: [Localized swelling, mass and lump, head] 12-30-2022 Episodic [place]-; endo-; and myocarditis; cardiomyopathy (except that caused by tuberculosis or sexually transmitted disease) (20 sources) Cardiomyopathy; Translations: [Cardiomyopathy, unspecified] Onset: 3 11-20-2021 Chronic Residual codes; unclassified (20 sources) Sleep apnea; Translations: [Sleep apnea, unspecified] 11-16-2021 Chronic Residual codes; unclassified (3 sources) Sleep apnea, unspecified; Translations: [Unspecified sleep apnea] 11-20-2021 Chronic Residual codes; unclassified (1 source) Family history of malignant neoplasm of trachea, bronchus and lung; Translations: [[facility] TRACH BRON LNG] Onset: 3 Episodic Residual codes; unclassified (1 source) Family history of malignant neoplasm of digestive organs; Translations: [[facility] HX MALANNALISA NEOPLASM DIGESTIV ORGN] Onset: 3 Episodic Residual codes; unclassified (1 source) Family history of malignant neoplasm of other organs or systems; Translations: [FAM HX MALANNALISA NEOPLASM OTH ORGN/SYS] Onset: 3 Episodic Residual codes; unclassified (2 sources) Altered mental status, unspecified; Translations: [Altered mental status, unspecified] Onset: 3 Episodic Residual codes; unclassified (2 sources) Disorientation, unspecified; Translations: [Disorientation, unspecified] Onset: 3 Episodic Respiratory failure; insufficiency; arrest (adult) (14 sources) Dependence on supplemental oxygen; Translations: [Chronic hypoxemic respiratory failure] Onset: 2 12-09-2022 Chronic Respiratory failure; insufficiency; arrest (adult) (20 sources) Acute hypoxemic respiratory failure; Translations: [Acute respiratory failure with hypoxia] Onset: 2 11-16-2021 Episodic Spondylosis; intervertebral disc disorders; other back problems (16 sources) Degeneration of intervertebral disc; Translations: [Other intervertebral disc degeneration, lumbar region] Onset: 2 Chronic Spondylosis; intervertebral disc disorders; other back problems (7 sources) Spinal stenosis, cervical region; Translations: [Neck pain] Onset: 2 04-01-2023 Episodic Unclassified (1 source) CONTACT W/AND (SUSP) EXPOS COVID-19; Translations: [CONTACT W/AND (SUSP) EXPOS COVID-19] Onset: 2 Unclassified (4 sources) Failed encounter; Translations: [Missed dialysis] 04-01-2023 Unclassified (2 sources) Ventricular tachycardia, unspecified; Translations: [...] Classification Problem Date Documented Da te Episodic/Chronic Cardiac dysrhythmias (14 sources) Bradycardia; Translations: [Bradycardia, unspecified] Onset: 12-30-2022 12-30-2022 Episodic Coronary atherosclerosis and other heart disease (1 source) Presence of coronary angioplasty implant and graft; Translations: [PRESENCE COR ANGPLSTY IMPLANT AND GRAFT] Onset: 11-22-2021 Episodic Deficiency and other anemia (20 sources) Anemia, unspecified; Translations: [Anemia, unspecified] Onset: 12-30-2022 11-20-2021 Episodic E Codes: Fall (20 sources) [...] condition; Translations: [NOSOCOMIAL CONDITION] Onset: 11-22-2021 Episodic Fever of unknown origin (18 sources) Fever; Translations: [Fever, unspecified] Onset: 12-30-2022 12-30-2022 Episodic Fracture of upper limb (1 source) Displaced fracture of acromial process, right shoulder, initial encounter for closed fracture; Translations: [DSPL FX ACRML RT SHLDR INIT MIRNA FX] Onset: 11-22-2021 Episodic Genitourinary symptoms and ill-defined conditions (9 sources) Hematuria, unspecified; Translations: [HEMATURIA UNSPECIFIED] Onset: 01-02-2021 Resolved: 07-25-2021 Episodic Other aftercare (1 source) 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; Translations: [USP CURRENT USE OF ASPIRIN] Onset: 11-22-2021 Episodic Other aftercare (4 sources) correction (current) use of insulin; Translations: [LAN SUPPORT SPECIALIST CURRENT USE OF INSULIN] Onset: 11-22-2021 Episodic Other aftercare (1 source) 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; Translations: [OTH LAN SUPPORT SPECIALIST CURRENT DRUG THERAPY] Onset: 11-22-2021 Episodic Other [...] 10-30-2022 11-20-2021 Episodic Other non-traumatic joint disorders (20 sources) Pain in left shoulder; Translations: [Left shoulder pain] Onset: 10-30-2022 10-30-2022 Episodic Other non-traumatic joint disorders (6 sources) Pain in unspecified joint; Translations: [Pain in joint, multiple sites] Onset: 12-30-2022 01-02-2023 Episodic Other screening for suspected conditions (not mental disorders or infectious disease) (20 sources) Encounter for screening mammogram for malignant neoplasm of breast; Translations: [Electrocardiogram abnormal] Onset: 05-31-2022 Episodic Other skin disorders (6 sources) Localized swelling, mass and lump, head; Translations: [Swelling, mass, or lump in head and neck] Onset: 12-30-2022 01-02-2023 Episodic Pleurisy; pneumothorax; pulmonary collapse (20 sources) Pleural effusion; Translations: [Pleural effusion, not elsewhere classified] Onset: 11-22-2021 11-16-2021 Episodic Pneumonia (except that caused by tuberculosis or sexually transmitted disease) (3 sources) Pneumonia, unspecified organism; Translations: [PNEUMONIA UNSPECIFIED ORGANISM] Onset: 11-04-2021 Episodic Residual codes; unclassified (5 sources) Edema, unspecified; Translations: [EDEMA UNSPECIFIED] Onset: 01-02-2021 Resolved: 07-25-2021 Episodic Syncope (20 sources) Syncope; Translations: [Syncope and collapse] Onset: 12-08-2022 12-06-2022 Episodic Unclassified (1 source) Ventricular tachycardia, unspecified; Translations: [Ventricular tachycardia, unspecified] Onset: 01-29-2023 Unclassified (1 source) Other ventricular tachycardia; Translations: [Other ventricular tachycardia] Onset: 01-29-2023 Results Test Name Value Interpretation Reference Range Facility CT cervical spine wo conon 0 04-16-2023 CT cervical spine wo con Normal [facility] ECG 12 lead ECGon 04-16-2023 ECG 12 lead ECG Normal [facility] Basic Metabolic Panelon 03-14 Anion gap [Moles/Vol] 14.5 mmol/L Normal 6.0-15.0 [facility] Comment on above: Performed By: #### B MP ####[facility] [place] [address] [facility] Calcium [Mass/Vol] 9.4 mg/dL Normal 8.6-10.3 [facility] Comment on above: Performed By: #### B MP ####[facility] [place] [address] [place] Chloride [Moles/Vol] 94 mmol/L Low 98-107 [facility] Comment on above: Performed By: #### B MP ####[address] [place] [address] [facility] CO2 [Moles/Vol] 28.9 mmol/L Normal 21.0-31.0 [facility] Comment on above: Performed By: #### B MP ####[address] [place] [address] [facility] Creatinine [Mass/Vol] 3.38 mg/dL Significan t change up 0.60-1.20 [facility] Comment on above: Performed By: #### B MP ####[address] [place] [address] [facility] Creatinine Clr Calc Pharmacy 12.23 [facility] Comment on above: Result Comment: PERF ORMED BY:[address] [place], [place] [id number] MEDICAL DIRECTORRAMEZ LARSON M.D. Performed By: #### B MP ####[address] [place] [address] [facility] GFR/1.73 sq M.predicted MDRD (S/P/Bld) [Vol rate/Area] 13.539 mL/min/{1.73_m2} [facility] Comment on above: Performed By: #### B MP ####[address] [address] [facility] Glucose [Mass/Vol] 123 mg/dL High 70-100 [facility] Comment on above: Result Comment: [place] Glucose Reference Range is dependent on time and content of last meal. Glucose of more than 200 mg/dL in a nonstressed, ambulatory subject supports the diagnosis of Diabetes Mellitus. ADA recommended reference range Performed By: #### B MP ####[address] [place] [address] [facility] Potassium [Moles/Vol] 4.4 mmol/L Normal 3.5-5.[address] [facility] Comment on above: Performed By: #### B MP ####[facility] [address] [place] [address] [facility] Sodium [Moles/Vol] 133 mmol/L Low 136-145 [facility] Comment on above: Performed By: #### B MP ####[facility] [address] [place] [address] [facility] Urea nitrogen [Mass/Vol] 25 mg/dL Significant change down 7-25 [facility] Comment on above: Performed By: #### B MP ####[facility] [id number] [facility] Calcium [Mass/volume] in Ser um or PlasmaOrdered By: Obyumikodabrendon Crabtreeomar on 04-05-2023 Calcium [Mass/Vol] 9.4 mg/dL 8.6-10.3 [facility] Carbon dioxide, total [Moles /volume] in Serum or PlasmaOrdered By: Gary Crabtreeomar on 04-05-2023 CO2 [Moles/Vol] 28.9 mmol/L 21.0-31.0 [facility] Chloride [Moles/volume] in S steffanie or PlasmaOrdered By: Obyumikodah Daromar on 04-05-2023 Chloride [Moles/Vol] 94 mmol/L 98-107 [facility] Creatinine [Mass/volume] in Serum or PlasmaOrdered By: Obyumikodah Daromar on 04-05-2023 Creatinine [Mass/Vol] 3.38 mg/dL 0.60-1.[address] [facility] Comment on above: Delta: 5.42 on 04/04 Glucose Glucometer (BldC) [M ass/Vol]Ordered By: Obyumikodah Daromar on 04-05-2023 Glucose [Mass/Vol] 123 mg/dL [facility] Comment on above: Random Glucose Refer ence Range is dependent on time and content of last meal. Glucose of more than 200 mg/dL in a nonstressed, ambulatory subject supports the diagnosis of Diabetes Mellitus. Glucose Poct Glucometerson 0 04-05-2023 Glucose [Mass/Vol] 123 mg/dL Normal [facility] Comment on above: Result Comment: [place] Glucose Reference Range is dependent on time and content of last meal. Glucose of more than 200 mg/dL in a nonstressed, ambulatory subject supports the diagnosis of Diabetes Mellitus.PERFORMED BY:[address] [place], [place] [phone] MEDICAL DIRECTORRAMEZ LARSON M.D. Performed By: #### G LULS ####Point of Care testing, Glucose [Mass/Vol] 183 mg/dL Normal [facility] Comment on above: Result Comment: [facility][note 3] Glucose Reference Range is dependent on time and content of last meal. Glucose of more than 200 mg/dL in a nonstressed, ambulatory subject supports the diagnosis of Diabetes Mellitus.PERFORMED BY:[address] [place], [place] [phone] MEDICAL DIRECTORRAMEZ LARSON M.D. Performed By: #### G LULS ####Point of Care testing, Glucose [Mass/Vol] 133 mg/dL Normal [facility] Comment on above: Result Comment: [facility][note 3] Glucose Reference Range is dependent on time and content of last meal. Glucose of more than 200 mg/dL in a nonstressed, ambulatory subject supports the diagnosis of Diabetes Mellitus.PERFORMED BY:[address] [place] [phone] MEDICAL DIRECTORRAMEZ LARSON M.D. Performed By: #### G LULS ####Point of Care testing, Glucose [Mass/volume] in Ser um or PlasmaOrdered By: Gary Almaguer on 04-05-2023 Glucose [Mass/Vol] 123 mg/dL 70-100 [facility] Comment on above: ADA recommended refe rence rangeRandom Glucose Reference Range is dependent on time and content of last meal. Glucose of more than 200 mg/dL in a nonstressed, ambulatory subject supports the diagnosis of Diabetes Mellitus. No Panel InformationOrdered By: Gary Almaguer on 04-05-2023 Estimated GFR (CKD-EPI) 13.539 mL/Min [facility] Pharmacy Creatinine Clearance (Chem 12.23 [facility] Potassium [Moles/volume] in Serum or PlasmaOrdered By: Obyumikodah Daromar on 04-05-2023 Potassium [Moles/Vol] 4.4 mmol/L 3.5-5.[address] [facility] Serum or plasma anion gap de terminationOrdered By: Obaydah Daromar on 04-05-2023 Anion gap [Moles/Vol] 14.5 mmol/L 6.0-15.0 [facility] Sodium [Moles/volume] in Ser um or PlasmaOrdered By: Obaydah Daromar on 04-05-2023 Sodium [Moles/Vol] 133 mmol/L 136-145 [facility] Urea nitrogen [Mass/volume] in Serum or PlasmaOrdered By: Obaydah Daromar on 04-05-2023 Urea nitrogen [Mass/Vol] 25 mg/dL 7 [facility] Comment on above: [place]: 55 [place] [id number] Alanine aminotransferase [En zymatic activity/volume] in Serum or PlasmaOrdered By: Obyumikodah Daromar on 04-04-2023 ALT [Catalytic activity/Vol] 7 U/L 752 [facility] Albumin [Mass/volume] in Ser um or Plasma by Bromocresol green (BCG) dye binding methoOrdered By: Obyumikodah Daromar on 04-04-2023 Albumin BCG dye [Mass/Vol] 3.4 g/dL 3.5-5.7 [facility] Alkaline phosphatase [Enzyma tic activity/volume] in Serum or PlasmaOrdered By: Obyumikodah Daromar on 04-04-2023 ALP [Catalytic activity/Vol] 174 U/L 34-104 [facility] Aspartate aminotransferase [ Enzymatic activity/volume] in Serum or PlasmaOrdered By: Obyumikodah Daromar on 04-04-2023 AST [Catalytic activity/Vol] 12 U/L 13-39 [facility] Bilirubin.total [Mass/volume ] in Serum or PlasmaOrdered By: Obyumikodah Daromar on 04-04-2023 Bilirubin [Mass/Vol] 0.3 mg/dL 0.3-1.0 [facility] Comprehensive Metabolic Pane eliseo 04-04-2023 Albumin [Mass/Vol] 3.4 g/dL Low 3.5-5.7 [facility] Comment on above: Performed By: #### C MP ####[id number] [facility] Albumin/Globulin [Mass ratio] 1.0 {ratio} Normal [facility] Comment on above: Performed By: #### C MP ####[address] [address] [facility] ALP [Catalytic activity/Vol] 174 U/L High 34-104 [facility] Comment on above: Performed By: #### C MP ####[id number] [facility] ALT [Catalytic activity/Vol] 7 U/L Normal 7-52 [facility] Comment on above: Performed By: #### C MP ####[id number] [facility] Anion gap [Moles/Vol] 15.9 mmol/L High 6.0-15.0 [facility] Comment on above: Performed By: #### C MP ####[id number] [facility] AST [Catalytic activity/Vol] 12 U/L Low 13-39 [facility] Comment on above: Performed By: #### C MP ####[id number] [facility] Bilirubin [Mass/Vol] 0.3 mg/dL Normal 0.3-1.0 [facility] Comment on above: Performed By: #### C MP ####[id number] [facility] Calcium [Mass/Vol] 8.8 mg/dL Normal 8.6-10.3 [facility] Comment on above: Performed By: #### C MP ####[id number] [facility] Chloride [Moles/Vol] 92 mmol/L Low 98-107 [facility] Comment on above: Performed By: #### C MP ####[address] [address] [facility] CO2 [Moles/Vol] 26.4 mmol/L Normal 21.0-31.0 [facility] Comment on above: Performed By: #### C MP ####[address] [address] [facility] Creatinine [Mass/Vol] 5.42 mg/dL Significan t change up 0.60-1.20 [facility] Comment on above: Performed By: #### C MP ####[address] [address] [facility] Creatinine Clr Calc Pharmacy 7.63 Normal [facility] Comment on above: Result Comment: PERF ORMED BY:[address] [place], [place] [phone] MEDICAL DIRECTORRAMEZ LARSON M.D. Performed By: #### C MP ####[address] [address] [facility] GFR/1.73 sq M.predicted MDRD (S/P/Bld) [Vol rate/Area] 7.683 mL/min/{1.73_m2} Normal [facility] Comment on above: Performed By: #### C MP ####[address] [address] [facility] Globulin (S) [Mass/Vol] 3.3 g/dL [facility] Comment on above: Performed By: #### C MP ####[address] [address] [facility] Glucose [Mass/Vol] 175 mg/dL High 70-100 [facility] Comment on above: Result Comment: [place] Glucose Reference Range is dependent on time and content of last meal. Glucose of more than 200 mg/dL in a nonstressed, ambulatory subject supports the diagnosis of Diabetes Mellitus. ADA recommended reference range Performed By: #### C MP ####[address] [address] [facility] Potassium [Moles/Vol] 4.3 mmol/L Normal 3.5-5.[address] [facility] Comment on above: Performed By: #### C MP ####[id number] [facility] Protein [Mass/Vol] 6.7 g/dL Normal 6.4-8.9 [facility] Comment on above: Performed By: #### C MP ####[id number] [facility] Sodium [Moles/Vol] 130 mmol/L Low 136-145 [facility] Comment on above: Performed By: #### C MP ####[id number] [facility] Urea nitrogen [Mass/Vol] 55 mg/dL High 7-25 [facility] Comment on above: Performed By: #### C MP ####[id number] [facility] Globulin Calc (S) [Mass/Vol] Ordered By: Gary Almaguer on 04-04-2023 Globulin (S) [Mass/Vol] 3.3 g/dL [facility] Glucose Poct Glucometerson 0 04-04-2023 Glucose [Mass/Vol] 175 mg/dL Normal [facility] Comment on above: Result Comment: [facility][note 3] Glucose Reference Range is dependent on time and content of last meal. Glucose of more than 200 mg/dL in a nonstressed, ambulatory subject supports the diagnosis of Diabetes Mellitus.PERFORMED BY:[address] [address] [place], [place] [phone] MEDICAL DIRECTORRAMEZ LARSON M.D. Performed By: #### G LULS ####Point of Care testing, Commemt1 Glu2: Cleaned Meter Normal [facility] Comment on above: Result Comment: PERF ORMED BY:[address] [address] [place], [place] [phone] MEDICAL DIRECTORRAMEZ LARSON M.D. Performed By: #### G LULS ####Point of Care testing, Glucose [Mass/Vol] 94 mg/dL Normal [facility] Comment on above: Result Comment: [place] om Glucose Reference Range is dependent on time and content of last meal. Glucose of more than 200 mg/dL in a nonstressed, ambulatory subject supports the diagnosis of Diabetes Mellitus. Performed By: #### G LULS ####Point of Care testing, Glucose [Mass/Vol] 157 mg/dL Normal [facility] Comment on above: Result Comment: [place] om Glucose Reference Range is dependent on time and content of last meal. Glucose of more than 200 mg/dL in a nonstressed, ambulatory subject supports the diagnosis of Diabetes Mellitus.PERFORMED BY:[address] [place], [place] [phone] MEDICAL DIRECTORRAMEZ LARSON M.D. Performed By: #### G DAVID ####Point of Care testing, MR head/brain wo conon 04-04 MR head/brain wo con Normal [facility] No Panel InformationOrdered By: Gary Almaguer on 04-04-2023 Bedside Glucose Comment Glu2: cleaned meter [facility] Protein [Mass/volume] in Ser um or PlasmaOrdered By: Gary Almaguer on 04-04-2023 Protein [Mass/Vol] 6.7 g/dL 6.4-8.9 [facility] Serum or plasma albumin/glob ulin mass ratioOrdered By: Gary Almaguer on 04-04-2023 Albumin/Globulin [Mass ratio] 1.0 {ratio} [facility] Comprehensive Metabolic Pane eliseo 04-03-2023 Albumin [Mass/Vol] 3.0 g/dL Low 3.5-5.7 [facility] Comment on above: Performed By: #### C PARKER ESCOBAR ####[facility] [place] [address] [facility] Albumin/Globulin [Mass ratio] 1.0 {ratio} Normal [facility] Comment on above: Performed By: #### C PARKER ESCOBAR ####[facility] [place], [place] [id number] [facility] ALP [Catalytic activity/Vol] 186 U/L High 34-104 [facility] Comment on above: Performed By: #### C SHAWN CBCNO ####[address] [place] [address] [facility] ALT [Catalytic activity/Vol] 6 U/L Low 7-52 [facility] Comment on above: Performed By: #### C SHAWN, CBCNO ####[address] [place] [address] [facility] Anion gap [Moles/Vol] 14.5 mmol/L Normal 6.0-15.0 [facility] Comment on above: Performed By: #### C SHAWN CBCNO ####[address] [place] [id number] [facility] AST [Catalytic activity/Vol] 13 U/L Normal 13-39 [facility] Comment on above: Performed By: #### C SHAWN CBCNO ####[place] [id number] [facility] Bilirubin [Mass/Vol] 0.3 mg/dL Normal 0.3-1.0 [facility] Comment on above: Performed By: #### C SHAWN CBCNO ####[address] [id number] [facility] Calcium [Mass/Vol] 8.5 mg/dL Low 8.6-10.3 [facility] Comment on above: Performed By: #### C SHAWN, CBCNO ####[id number] [facility] Chloride [Moles/Vol] 94 mmol/L Low 98-107 [facility] Comment on above: Performed By: #### C SHAWN, CBCNO ####[facility] [address] [place] [address] [facility] CO2 [Moles/Vol] 26.2 mmol/L Normal 21.0-31.0 [facility] Comment on above: Performed By: #### C SHAWN, CBCNO ####[facility] [address] [place], [place] [id number] [facility] Creatinine [Mass/Vol] 4.28 mg/dL Significan t change up 0.60-1.20 [facility] Comment on above: Performed By: #### C SHAWN, CBCNO ####[facility] [place] [address] [facility] Creatinine Clr Calc Pharmacy 9.66 Normal [facility] Comment on above: Result Comment: PERF ORMED BY:[address] [place], [place] [phone] MEDICAL DIRECTORRAMEZ LARSON M.D. Performed By: #### C SHAWN, CBCNO ####[address] [place] [address] [facility] GFR/1.73 sq M.predicted MDRD (S/P/Bld) [Vol rate/Area] 10.199 mL/min/{1.73_m2} Normal [facility] Comment on above: Performed By: #### C SHAWN, CBCNO ####[address] [place] [address] [facility] Globulin (S) [Mass/Vol] 2.9 g/dL [facility] Comment on above: Performed By: #### C SHAWN, CBCNO ####[address] [place] [address] [facility] Glucose [Mass/Vol] 148 mg/dL High 70-100 [facility] Comment on above: Result Comment: [place] Glucose Reference Range is dependent on time and content of last meal. Glucose of more than 200 mg/dL in a nonstressed, ambulatory subject supports the diagnosis of Diabetes Mellitus. ADA recommended reference range Performed By: #### C SHAWN, CBCNO ####[address] [place] [address] [facility] Potassium [Moles/Vol] 4.7 mmol/L Normal 3.5-5.[address] [facility] Comment on above: Performed By: #### C SHAWN, CBCNO ####[facility] [place] [address] [facility] Protein [Mass/Vol] 5.9 g/dL Low 6.4-8.9 [facility] Comment on above: Performed By: #### C SHAWN CBCNO ####[facility] [place] [address] [facility] Sodium [Moles/Vol] 130 mmol/L Low 136-145 [facility] Comment on above: Performed By: #### C SHAWN CBCNO ####[facility] [address] [place] [address] [facility] Urea nitrogen [Mass/Vol] 38 mg/dL Significant change up 09-03 [facility] Comment on above: Performed By: #### C SHAWN CBCNO ####[facility] [place] [address] [facility] Erythrocyte distribution wid th Auto (RBC) [Ratio]Ordered By: Gary Almaguer on 04-03-2023 Erythrocyte distribution width (RBC) [Ratio] 19.9 % 11.9-15.3 [facility] Glucose Poct Glucometerson 0 04-03-2023 Glucose [Mass/Vol] 204 mg/dL Normal [facility] Comment on above: Result Comment: [facility][note 3] Glucose Reference Range is dependent on time and content of last meal. Glucose of more than 200 mg/dL in a nonstressed, ambulatory subject supports the diagnosis of Diabetes Mellitus.PERFORMED BY:[address] [place], [place] [phone] MEDICAL DIRECTORRAMEZ LARSON M.D. Performed By: #### G LULS ####Point of Care testing, Glucose [Mass/Vol] 237 mg/dL Normal [facility] Comment on above: Result Comment: [facility][note 3] Glucose Reference Range is dependent on time and content of last meal. Glucose of more than 200 mg/dL in a nonstressed, ambulatory subject supports the diagnosis of Diabetes Mellitus.PERFORMED BY:[address] [place], [place] [phone] MEDICAL DIRECTORRAMEZ LARSON M.D. Performed By: #### G LULS ####Point of Care testing, Glucose [Mass/Vol] 239 mg/dL Normal [facility] Comment on above: Result Comment: [facility][note 3] Glucose Reference Range is dependent on time and content of last meal. Glucose of more than 200 mg/dL in a nonstressed, ambulatory subject supports the diagnosis of Diabetes Mellitus.PERFORMED BY:[address] [address] [place], [place] [phone] MEDICAL DIRECTORRAMEZ LARSON M.D. Performed By: #### G LULS ####Point of Care testing, Glucose [Mass/Vol] 162 mg/dL Normal [facility] Comment on above: Result Comment: [facility][note 3] Glucose Reference Range is dependent on time and content of last meal. Glucose of more than 200 mg/dL in a nonstressed, ambulatory subject supports the diagnosis of Diabetes Mellitus.PERFORMED BY:[address] [place], [place] [phone] MEDICAL DIRECTORRAMEZ LARSON M.D. Performed By: #### G LULS ####Point of Care testing, Glucose [Mass/Vol] 246 mg/dL Normal [facility] Comment on above: Result Comment: [facility][note 3] Glucose Reference Range is dependent on time and content of last meal. Glucose of more than 200 mg/dL in a nonstressed, ambulatory subject supports the diagnosis of Diabetes Mellitus.PERFORMED BY:[address] [address] [place], [place] [phone] MEDICAL DIRECTORRAMEZ LARSON M.D. Performed By: #### G LULS ####Point of Care testing, Hematocrit Auto (Bld) [Volum e fraction]Ordered By: Gary Almaguer on 04-03-2023 Hematocrit (Bld) [Volume fraction] 29.2 % 34.0-46.4 [facility] Hemoglobin [Mass/volume] in BloodOrdered By: Gary Almaguer on 04-03-2023 Hemoglobin (Bld) [Mass/Vol] 9.2 g/dL 11.8-15.4 [facility] Hemogram CBC Without Diffon 04-03-2023 Erythrocyte distribution width (RBC) [Ratio] 19.9 % High 11.9-15.3 [facility] Comment on above: Performed By: #### C MP, CBCNO ####[address] [address] [facility] Hematocrit (Bld) [Volume fraction] 29.2 % Low 34.0-46.4 [facility] Comment on above: Performed By: #### C MP, CBCNO ####[address] [address] [facility] Hemoglobin (Bld) [Mass/Vol] 9.2 g/dL Low 11.8-15.4 [facility] Comment on above: Performed By: #### C MP, CBCNO ####[address] [address] [facility] MCH (RBC) [Entitic mass] 27.1 pg Normal 24.7-34.3 [facility] Comment on above: Performed By: #### C MP, CBCNO ####[place] [id number] [facility] MCV (RBC) [Entitic vol] 85.8 fL Normal 80-100 [facility] Comment on above: Performed By: #### C MP, CBCNO ####[address] [facility] Mean Corpuscular HGB Conc 31.6 g/dL Low 32.0-35.0 [facility] Comment on above: Performed By: #### C MP, CBCNO ####[place] [id number] [facility] Platelet mean volume (Bld) [Entitic vol] 7.8 fL Normal 6.3-10.7 [facility] Comment on above: Result Comment: PERF ORMED BY:[address] [place], [place] [phone] MEDICAL DIRECTORRAMEZ LARSON M.D. Performed By: #### C MP, CBCNO ####[address] [address] [facility] Platelets (Bld) [#/Vol] 250 10*3/uL Normal 150-450 [facility] Comment on above: Performed By: #### C MP, CBCNO ####[facility] [address] [place] [address] [facility] RBC (Bld) [#/Vol] 3.40 10*6/uL Low 3.60-5.00 [facility] Comment on above: Performed By: #### C MP, CBCNO ####[facility] [address] [place] [address] [facility] WBC (Bld) [#/Vol] 6.9 10*3/uL Normal 3.8-11.6 [facility] Comment on above: Performed By: #### C MP, CBCNO ####[facility] [address] [place] [id number] [facility] Leukocytes [#/volume] correc tr for nucleated erythrocytes in Blood by Automated counOrdered By: Gary Crabtreeomar on 04-03-2023 WBC corrected for nucl RBC Auto (Bld) [#/Vol] 6.9 10*3/uL 3.8-11.6 [facility] MCH Auto (RBC) [Entitic mass ]Ordered By: Obyumikodabrendon Crabtreeomar on 04-03-2023 MCH (RBC) [Entitic mass] 27.1 pg 24.7-34.3 [facility] MCHC Auto (RBC) [Mass/Vol]Or dered By: Obyumikodah Broomar on 04-03-2023 MCHC (RBC) [Mass/Vol] 31.6 g/dL 32.0-35.[address] [facility] MCV Auto (RBC) [Entitic vol] Ordered By: Obyumikodabrendon Crabtreeomar on 04-03-2023 MCV (RBC) [Entitic vol] 85.8 fL 80-100 [facility] Platelet mean volume Auto (B ld) [Entitic vol]Ordered By: Obyumikodah Daromar on 04-03-2023 Platelet mean volume (Bld) [Entitic vol] 7.8 fL 6.3-10.7 [facility] Platelets Auto (Bld) [#/Vol] Ordered By: Obyumikodabrendon Crabtreeomar on 04-03-2023 Platelets (Bld) [#/Vol] 250 10*3/uL 150-450 [facility] RBC Auto (Bld) [#/Vol]Ordere d By: Gary Almaguer on 04-03-2023 RBC (Bld) [#/Vol] 3.40 10*6/uL 3.60-5.00 [facility] US carotid doppler BIon 03-14 US carotid doppler BI Normal [facility] Basic Metabolic Panelon 03-14 Anion gap [Moles/Vol] 18.2 mmol/L High 6.0-15.0 [facility] Comment on above: Performed By: #### C BC, BMP ####[facility] [address] [place] [address] [facility] Calcium [Mass/Vol] 9.6 mg/dL Normal 8.6-10.3 [facility] Comment on above: Performed By: #### C BC, BMP ####[address] [place] [address] [facility] Chloride [Moles/Vol] 93 mmol/L Low 98-107 [facility] Comment on above: Performed By: #### C BC, BMP ####[facility] [place] [address] [facility] CO2 [Moles/Vol] 23.5 mmol/L Normal 21.0-31.0 [facility] Comment on above: Performed By: #### C BC, BMP ####[facility] [place] [address] [place] Creatinine [Mass/Vol] 6.31 mg/dL High 0.60-1.[address] [facility] Comment on above: Performed By: #### C BC, BMP ####[facility] [address] [place] [address] [place] Creatinine Clr Calc Pharmacy 6.55 [facility] Comment on above: Result Comment: PERF ORMED BY:[address] [place], [place] [phone] MEDICAL DIRECTORRAMEZ LARSON M.D. Performed By: #### C BC, BMP ####[facility] [place] [address] [facility] GFR/1.73 sq M.predicted MDRD (S/P/Bld) [Vol rate/Area] 6.401 mL/min/{1.73_m2} Normal [facility] Comment on above: Performed By: #### C REBECCA, BMP ####[address] [place] [address] [facility] Glucose [Mass/Vol] 119 mg/dL High 70-100 [facility] Comment on above: Result Comment: [place] Glucose Reference Range is dependent on time and content of last meal. Glucose of more than 200 mg/dL in a nonstressed, ambulatory subject supports the diagnosis of Diabetes Mellitus. ADA recommended reference range Performed By: #### C REBECCA, BMP ####[address] [place] [address] [facility] Potassium [Moles/Vol] 5.7 mmol/L High 3.5-5.[address] [facility] Comment on above: Performed By: #### C REBECCA, BMP ####[address] [place] [address] [facility] Sodium [Moles/Vol] 129 mmol/L Low 136-145 [facility] Comment on above: Performed By: #### C REBECCA, BMP ####[address] [place] [address] [facility] Urea nitrogen [Mass/Vol] 70 mg/dL High 7-25 [facility] Comment on above: Performed By: #### C REBECCA, BMP ####[address] [place] [address] [place] Basophils Auto (Bld) [#/Vol] Ordered By: Teresa Pagan on 04-02-2023 Basophils (Bld) [#/Vol] 0.0 10*3/uL 0.0-0.2 [facility] Basophils/100 WBC Auto (Bld) Ordered By: Teresa Pagan on 04-02-2023 Basophils/100 WBC (Bld) 0.7 % . [facility] CT angio neckon 04-02-2023 CT angio neck Normal [facility] Complete Blood Count Auto Di ffon 04-02-2023 Basophils (Bld) [#/Vol] 0.0 10*3/uL Normal 0.0-0.2 [facility] Comment on above: Result Comment: PERF ORMED BY:[address] [place], [place] [phone] MEDICAL DIRECTORRAMEZ LARSON M.D. Performed By: #### C REBECCA, BMP ####[place] [address] [facility] Basophils/100 WBC (Bld) 0.7 % Normal . [facility] Comment on above: Performed By: #### C REBECCA, BMP ####[place] [address] [facility] Eosinophils (Bld) [#/Vol] 0.3 10*3/uL Normal 0.0-0.45 [facility] Comment on above: Performed By: #### C REBECCA, BMP ####[address] Eosinophils/100 WBC (Bld) 4.6 % Normal . [facility] Comment on above: Performed By: #### C REBECCA, BMP ####[place] [address] [facility] Erythrocyte distribution width (RBC) [Ratio] 20.0 % High 11.9-15.3 [facility] Comment on above: Performed By: #### C REBECCA, BMP ####[place] [address] [facility] Hematocrit (Bld) [Volume fraction] 34.5 % Normal 34.0-46.4 [facility] Comment on above: Performed By: #### C REBECCA, BMP ####[place] [address] [facility] Hemoglobin (Bld) [Mass/Vol] 10.7 g/dL Low 11.8-15.4 [facility] Comment on above: Performed By: #### C REBECCA, BMP ####[place] [address] [facility] Lymphocytes (Bld) [#/Vol] 1.1 10*3/uL Normal 1.00-4.8 [facility] Comment on above: Performed By: #### C REBECCA, BMP ####[address] Lymphocytes/100 WBC (Bld) 15.2 % Normal . [facility] Comment on above: Performed By: #### C REBECCA, BMP ####[address] MCH (RBC) [Entitic mass] 26.8 pg Normal 24.7-34.3 [facility] Comment on above: Performed By: #### C REBECCA, BMP ####[address] MCV (RBC) [Entitic vol] 86.5 fL Normal 80-100 [facility] Comment on above: Performed By: #### C REBECCA, BMP ####[address] Mean Corpuscular HGB Conc 30.9 g/dL Low 32.0-35.0 [facility] Comment on above: Performed By: #### C REBECCA, BMP ####[address] Monocytes (Bld) [#/Vol] 0.7 10*3/uL Normal 0.0-0.8 [facility] Comment on above: Performed By: #### C REBECCA, BMP ####[address] Monocytes/100 WBC (Bld) 9.9 % Normal . [facility] Comment on above: Performed By: #### C REBECCA, BMP ####[address] Neutrophils (Bld) [#/Vol] 4.9 10*3/uL Normal 1.8-7.7 [facility] Comment on above: Performed By: #### C REBECCA, BMP ####[place] [address] [place] Neutrophils/100 WBC (Bld) 69.6 % Normal . [facility] Comment on above: Performed By: #### C REBECCA, BMP ####[address] NRBC% 0.0 /100{WBC} Normal 0-0.5 [facility] Comment on above: Performed By: #### C REBECCA, BMP ####[address] Platelet mean volume (Bld) [Entitic vol] 7.8 fL Normal 6.3-10.7 [facility] Comment on above: Performed By: #### C REBECCA, BMP ####[address] Platelets (Bld) [#/Vol] 278 10*3/uL Normal 150-450 [facility] Comment on above: Performed By: #### C REBECCA, BMP ####[address] RBC (Bld) [#/Vol] 3.98 10*6/uL Normal 3.60-5.00 [facility] Comment on above: Performed By: #### C REBECCA, BMP ####[address] WBC (Bld) [#/Vol] 7.1 10*3/uL Normal 3.8-11.6 [facility] Comment on above: Performed By: #### C REBECCA, BMP ####[address] Eosinophils Auto (Bld) [#/Vo l]Ordered By: Teresa Pagan on 04-02-2023 Eosinophils (Bld) [#/Vol] 0.3 10*3/uL 0.0-0.45 [facility] Eosinophils/100 WBC Auto (Bl d)Ordered By: Teresa Pagan on 04-02-2023 Eosinophils/100 WBC (Bld) 4.6 % . [facility] Glucose Poct Glucometerson 0 04-02-2023 Glucose [Mass/Vol] 157 mg/dL Normal [facility] Comment on above: Result Comment: [facility][note 3] Glucose Reference Range is dependent on time and content of last meal. Glucose of more than 200 mg/dL in a nonstressed, ambulatory subject supports the diagnosis of Diabetes Mellitus.PERFORMED BY:[address] [place], [place] [phone] MEDICAL MAJOR LARSON M.D. Performed By: #### G LULS ####Point of Care testing, Glucose [Mass/Vol] 126 mg/dL Normal [facility] Comment on above: Result Comment: [facility][note 3] Glucose Reference Range is dependent on time and content of last meal. Glucose of more than 200 mg/dL in a nonstressed, ambulatory subject supports the diagnosis of Diabetes Mellitus.PERFORMED BY:[address] [place], [place] [phone] MEDICAL MAJOR LARSON M.D. Performed By: #### G LULS ####Point of Care testing, Glucose [Mass/Vol] 119 mg/dL Normal [facility] Comment on above: Result Comment: [facility][note 3] Glucose Reference Range is dependent on time and content of last meal. Glucose of more than 200 mg/dL in a nonstressed, ambulatory subject supports the diagnosis of Diabetes Mellitus.PERFORMED BY:[address] [place], [place] [phone] MEDICAL MAJOR LARSON M.D. Performed By: #### G LULS ####Point of Care testing, Glucose [Mass/Vol] 119 mg/dL Normal [facility] Comment on above: Result Comment: [facility][note 3] Glucose Reference Range is dependent on time and content of last meal. Glucose of more than 200 mg/dL in a nonstressed, ambulatory subject supports the diagnosis of Diabetes Mellitus.PERFORMED BY:[address] [place], [place] [phone] MEDICAL MAJOR LARSON M.D. Performed By: #### G LULS ####Point of Care testing, Commemt1 Glu2: [facility] Comment on above: Result Comment: PERF ORMED BY:[place] [address] [place], [place] [phone] MEDICAL MAJOR LARSON M.D. Performed By: #### G LULS ####Point of Care testing, Glucose [Mass/Vol] 150 mg/dL Normal [facility] Comment on above: Result Comment: [place] om Glucose Reference Range is dependent on time and content of last meal. Glucose of more than 200 mg/dL in a nonstressed, ambulatory subject supports the diagnosis of Diabetes Mellitus. Performed By: #### G LULS ####Point of Care testing, Glucose [Mass/Vol] 131 mg/dL Normal [facility] Comment on above: Result Comment: [place] om Glucose Reference Range is dependent on time and content of last meal. Glucose of more than 200 mg/dL in a nonstressed, ambulatory subject supports the diagnosis of Diabetes Mellitus.PERFORMED BY:[place] [address] [place], [place] [phone] MEDICAL MAJOR LARSON M.D. Performed By: #### G LULS ####Point of Care testing, Glucose [Mass/Vol] 119 mg/dL Normal [facility] Comment on above: Result Comment: [place] om Glucose Reference Range is dependent on time and content of last meal. Glucose of more than 200 mg/dL in a nonstressed, ambulatory subject supports the diagnosis of Diabetes Mellitus.PERFORMED BY:[place] [address] [place], [place] [phone] MEDICAL MAJOR LARSON M.D. Performed By: #### G LULS ####Point of Care testing, Commemt1 Glu2: Cleaned [facility] Comment on above: Result Comment: PERF ORMED BY:[place] [address] [place], [place] [phone] MEDICAL MAJOR LARSON M.D. Performed By: #### G LULS ####Point of Care testing, Glucose [Mass/Vol] 114 mg/dL Normal [facility] Comment on above: Result Comment: [place] om Glucose Reference Range is dependent on time and content of last meal. Glucose of more than 200 mg/dL in a nonstressed, ambulatory subject supports the diagnosis of Diabetes Mellitus. Performed By: #### G LULS ####Point of Care testing, Glucose [Mass/Vol] 108 mg/dL Normal [facility] Comment on above: Result Comment: [place] om Glucose Reference Range is dependent on time and content of last meal. Glucose of more than 200 mg/dL in a nonstressed, ambulatory subject supports the diagnosis of Diabetes Mellitus.PERFORMED BY:[place] [address] [place], [place] [phone] MEDICAL DIRECTORRAMEZ LARSON M.D. Performed By: #### G LULS ####Point of Care testing, Glucose [Mass/Vol] 110 mg/dL Normal [facility] Comment on above: Result Comment: [place] om Glucose Reference Range is dependent on time and content of last meal. Glucose of more than 200 mg/dL in a nonstressed, ambulatory subject supports the diagnosis of Diabetes Mellitus.PERFORMED BY:[place] [address] [place], [place] [phone] MEDICAL MAJOR LARSON M.D. Performed By: #### G LULS ####Point of Care testing, Glucose [Mass/Vol] 147 mg/dL Normal [facility] Comment on above: Result Comment: [place] om Glucose Reference Range is dependent on time and content of last meal. Glucose of more than 200 mg/dL in a nonstressed, ambulatory subject supports the diagnosis of Diabetes Mellitus.PERFORMED BY:[place] [address] [place], [place] [phone] MEDICAL MAJOR LARSON M.D. Performed By: #### G LULS ####Point of Care testing, Commemt1 Normal [facility] Comment on above: Result Comment: Glu2 : WILL NOTIFY /OLIVERERFORMED BY:[place] [address] [address] [place] [phone] MEDICAL DIRECTORRAMEZ LARSON M.D. Performed By: #### G LULS ####Point of Care testing, Glucose [Mass/Vol] 59 mg/dL Off scale low [facility] Comment on above: Result Comment: [place] om Glucose Reference Range is dependent on time and content of last meal. Glucose of more than 200 mg/dL in a nonstressed, ambulatory subject supports the diagnosis of Diabetes Mellitus. Performed By: #### G LULS ####Point of Care testing, Commemt1 Glu2: Cleaned Meter Normal [facility] Comment on above: Result Comment: PERF ORMED BY:[id number] [place], [place] [phone] MEDICAL DIRECTORRAMEZ LARSON M.D. Performed By: #### G LULS ####Point of Care testing, Glucose [Mass/Vol] 88 mg/dL Normal [facility] Comment on above: Result Comment: [place] om Glucose Reference Range is dependent on time and content of last meal. Glucose of more than 200 mg/dL in a nonstressed, ambulatory subject supports the diagnosis of Diabetes Mellitus. Performed By: #### G LULS ####Point of Care testing, Lymphocytes Auto (Bld) [#/Vo l]Ordered By: Teresa Pagan on 04-02-2023 Lymphocytes (Bld) [#/Vol] 1.1 10*3/uL 1.00-4.8 [facility] Lymphocytes/100 WBC Auto (Bl d)Ordered By: Teresa Pagan on 04-02-2023 Lymphocytes/100 WBC (Bld) 15.2 % . [facility] Monocytes Auto (Bld) [#/Vol] Ordered By: Teresa Pagan on 04-02-2023 Monocytes (Bld) [#/Vol] 0.7 10*3/uL 0.0-0.8 [facility] Monocytes/100 WBC Auto (Bld) Ordered By: Teresa Pagan on 04-02-2023 Monocytes/100 WBC (Bld) 9.9 % . [facility] Neutrophils Auto (Bld) [#/Vo l]Ordered By: Teresa Pagan on 04-02-2023 Neutrophils (Bld) [#/Vol] 4.9 10*3/uL 1.8-7.7 [facility] Neutrophils/100 WBC Auto (Bl d)Ordered By: Teresa Pagan on 04-02-2023 Neutrophils/100 WBC (Bld) 69.6 % . [facility] Nucleated erythrocytes [Pres ence] in Blood by Automated countOrdered By: Teresa Pagan on 04-02-2023 Nucleated RBC Auto Ql (Bld) 0.0 /100{WBC} 0-0.5 [facility] WBC Auto (Bld) [#/Vol]Ordere d By: Teresa Pagan on 04-02-2023 WBC (Bld) [#/Vol] 7.1 10*3/uL 3.8-11.6 [facility] Activated partial thrombopla stin time (aPTT) in platelet poor plasma by coagulation aOrdered By: Taco Freed on 04-01-2023 aPTT Coag (PPP) [Time] 35.7 s 25.1-36.5 [facility] Comment on above: A hematocrit value g reater than 55% may lead to inaccurate results in coagulation testing. Patients having hematocrit values >55% require a special collection tube for coagulation studies. Please contact the laboratory at [phone] for redraw instructions. Alanine aminotransferase [En zymatic activity/volume] in Serum or PlasmaOrdered By: Taco Freed on 04-01-2023 ALT [Catalytic activity/Vol] 9 U/L Normal 7-52 [facility] Comment on above: Performed By: #### C K, PT, CBC, HEPATIC, BNP, BMP, HS TROP, PTT ####[facility] [address] Albumin [Mass/volume] in Ser um or Plasma by Bromocresol green (BCG) dye binding methoOrdered By: Taco Freed on 04-01-2023 Albumin BCG dye [Mass/Vol] 3.5 g/dL 3.5-5.7 [facility] Alkaline phosphatase [Enzyma tic activity/volume] in Serum or PlasmaOrdered By: Taco Freed on 04-01-2023 ALP [Catalytic activity/Vol] 216 U/L High 34-104 [facility] Comment on above: Performed By: #### C K, PT, CBC, HEPATIC, BNP, BMP, HS TROP, PTT ####[address] Aspartate aminotransferase [ Enzymatic activity/volume] in Serum or PlasmaOrdered By: Taco Freed on 04-01-2023 AST [Catalytic activity/Vol] 12 U/L Low 13-39 [facility] Comment on above: Performed By: #### C K, PT, CBC, HEPATIC, BNP, BMP, HS TROP, PTT ####[address] Automated basophil %Ordered By: Taco Freed on 04-01-2023 Basophils/100 WBC (Bld) 0.9 % Normal . [facility] Comment on above: Performed By: #### C K, PT, CBC, HEPATIC, BNP, BMP, HS TROP, PTT ####[address] Automated basophil countOrde red By: Taco Freed on 04-01-2023 Basophils (Bld) [#/Vol] 0.1 10*3/uL Normal 0.0-0.2 [facility] Comment on above: Result Comment: PERF ORMED BY:[address] [place], [place] [phone] MEDICAL DIRECTORRAMEZ LARSON M.D. Performed By: #### C K, PT, CBC, HEPATIC, BNP, BMP, HS TROP, PTT ####[place] [id number] [facility] Automated blood monocyte cou ntOrdered By: Taco Freed on 04-01-2023 Monocytes (Bld) [#/Vol] 0.8 10*3/uL Normal 0.0-0.8 [facility] Comment on above: Performed By: #### C K, PT, CBC, HEPATIC, BNP, BMP, HS TROP, PTT ####[place] [address] [place] [id number] [facility] Automated eosinophil %Ordere d By: Taco Freed on 04-01-2023 Eosinophils/100 WBC (Bld) 5.5 % Normal . [facility] Comment on above: Performed By: #### C K, PT, CBC, HEPATIC, BNP, BMP, HS TROP, PTT ####[place] [id number] [facility] Automated eosinophil countOr dered By: Taco Freed on 04-01-2023 Eosinophils (Bld) [#/Vol] 0.5 10*3/uL High 0.0-0.45 [facility] Comment on above: Performed By: #### C K, PT, CBC, HEPATIC, BNP, BMP, HS TROP, PTT ####[address] Automated monocyte %Ordered By: Taco Freed on 04-01-2023 Monocytes/100 WBC (Bld) 9.5 % Normal . [facility] Comment on above: Performed By: #### C K, PT, CBC, HEPATIC, BNP, BMP, HS TROP, PTT ####[address] Automated neutrophil %Ordere d By: Taco Freed on 04-01-2023 Neutrophils/100 WBC (Bld) 68.6 % Normal . [facility] Comment on above: Performed By: #### C K, PT, CBC, HEPATIC, BNP, BMP, HS TROP, PTT ####[place] [id number] [facility] BNP ser/plasOrdered By: Mk Freed on 04-01-2023 Natriuretic peptide B (Bld) [Mass/Vol] 1382.0 pg/mL High 5-100 [facility] Comment on above: Result Comment: PERF ORMED BY:[address] [place], [place] [phone] MEDICAL DIRECTORRAMEZ LARSON M.D. Performed By: #### C K, PT, CBC, HEPATIC, BNP, BMP, HS TROP, PTT ####[place] [id number] [facility] Basic Metabolic Panelon 03-14 Creatinine Clr Calc Pharmacy 6.56 Normal [facility] Comment on above: Result Comment: PERF ORMED BY:[address] [place], [place] [phone] MEDICAL DIRECTORRAMEZ LARSON M.D. Performed By: #### C K, PT, CBC, HEPATIC, BNP, BMP, HS TROP, PTT ####[address] GFR/1.73 sq M.predicted MDRD (S/P/Bld) [Vol rate/Area] 6.414 mL/min/{1.73_m2} Normal [facility] Comment on above: Performed By: #### C K, PT, CBC, HEPATIC, BNP, BMP, HS TROP, PTT ####[address] Bilirubin.direct [Mass/volum e] in Serum or PlasmaOrdered By: Taco Freed on 04-01-2023 Bilirubin.direct [Mass/Vol] 0.00 mg/dL 0.03-0.18 [facility] Comment on above: If the DBIL is less than 0.1, IBIL is not able to becalculated. Bilirubin.total [Mass/volume ] in Serum or PlasmaOrdered By: Taco Freed on 04-01-2023 Bilirubin [Mass/Vol] 0.4 mg/dL Normal 0.3-1.0 [facility] Comment on above: Performed By: #### C K, PT, CBC, HEPATIC, BNP, BMP, HS TROP, PTT ####[address] COVID CepheidOrdered By: Edison Freed on 04-01-2023 SARS-CoV-2 (COVID-19) Ab IA Ql Negative Negative [facility] Comment on above: This is a duplicate Cepheid Xpert Xpress CoV-2/Flu/RSV Plus RNA by RT-PCR result to be used for statistical tracking purpose only. SARS-CoV-2 (COVID-19) RNA MADISON+probe Ql (Unsp spec) [facility] COVID-19 / Flu A/B / RSV PCR on 04-01-2023 SARS-CoV-2 (COVID-19) RNA MADISON+probe Ql (Unsp spec) Normal [facility] Comment on above: Performed By: #### C OVID19 FLU RSV, CEPHEID NEG ####[place] [id number] [facility] CT head/brain wo conon 04-01 CT head/brain wo con Normal [facility] Calcium [Mass/volume] in Ser um or PlasmaOrdered By: Taco Freed on 04-01-2023 Calcium [Mass/Vol] 9.9 mg/dL Normal 8.6-10.3 [facility] Comment on above: Performed By: #### C K, PT, CBC, HEPATIC, BNP, BMP, HS TROP, PTT ####[address] Carbon dioxide, total [Moles /volume] in Serum or PlasmaOrdered By: Taco Freed on 04-01-2023 CO2 [Moles/Vol] 27.6 mmol/L Normal 21.0-31.0 [facility] Comment on above: Performed By: #### C K, PT, CBC, HEPATIC, BNP, BMP, HS TROP, PTT ####[place] [id number] [facility] Cepheid COVID PCR Negativeon 04-01-2023 SARS-CoV-2 (COVID-19) RNA MADISON+probe Ql (Unsp spec) Negative Normal Negative [facility] Comment on above: Result Comment: This is a duplicate Cepheid Xpert Xpress CoV-2/Flu/RSV Plus RNA by RT-PCR result to be used for statistical tracking purpose only.PERFORMED BY:[address] [place], [place] [phone] MEDICAL MAJOR LARSON M.D. Performed By: #### C OVID19 FLU RSV, CEPHEID NEG ####[place] [id number] [facility] Chloride [Moles/volume] in S steffanie or PlasmaOrdered By: Taco Freed on 04-01-2023 Chloride [Moles/Vol] 92 mmol/L Low 98-107 [facility] Comment on above: Performed By: #### C K, PT, CBC, HEPATIC, BNP, BMP, HS TROP, PTT ####[address] Complete Blood Count Auto Di ffon 04-01-2023 Mean Corpuscular HGB Conc 30.8 g/dL Low 32.0-35.0 [facility] Comment on above: Performed By: #### C K, PT, CBC, HEPATIC, BNP, BMP, HS TROP, PTT ####[address] Monocytes/100 WBC (Bld) 23.82 % High 0.00-20.00 [facility] Comment on above: Result Comment: For adults in ED, MDW > 20.0 may be associated with a higher risk of sepsis during the first 12 hrs of hospital admission Performed By: #### C K, PT, CBC, HEPATIC, BNP, BMP, HS TROP, PTT ####[place] [id number] [facility] NRBC% 0.0 /100{WBC} Normal 0-0.5 [facility] Comment on above: Performed By: #### C K, PT, CBC, HEPATIC, BNP, BMP, HS TROP, PTT ####[place] [id number] [facility] Creatine kinase [Enzymatic a ctivity/volume] in Serum or PlasmaOrdered By: Taco Freed on 04-01-2023 CK [Catalytic activity/Vol] 31 U/L Normal 30-223 [facility] Comment on above: Performed By: #### C K, PT, CBC, HEPATIC, BNP, BMP, HS TROP, PTT ####[place] [id number] [facility] Creatinine [Mass/volume] in Serum or PlasmaOrdered By: Taco Freed on 04-01-2023 Creatinine [Mass/Vol] 6.30 mg/dL High 0.60-1.[address] [facility] Comment on above: Performed By: #### C K, PT, CBC, HEPATIC, BNP, BMP, HS TROP, PTT ####[facility] [place] [address] [facility] ECG 12 lead ECGon 04-01-2023 ECG 12 lead ECG Normal [facility] Erythrocyte distribution wid th [Ratio] by Automated countOrdered By: Taco Freed on 04-01-2023 Erythrocyte distribution width (RBC) [Ratio] 19.9 % High 11.9-15.3 [facility] Comment on above: Performed By: #### C K, PT, CBC, HEPATIC, BNP, BMP, HS TROP, PTT ####[place] [address] [place] [id number] [facility] Erythrocytes [#/volume] in B lood by Automated countOrdered By: Taco Freed on 04-01-2023 RBC (Bld) [#/Vol] 3.82 10*6/uL Normal 3.60-5.00 [facility] Comment on above: Performed By: #### C K, PT, CBC, HEPATIC, BNP, BMP, HS TROP, PTT ####[facility] [place] [address] [facility] Glucose Glucometer (BldC) [M ass/Vol]Ordered By: Teresa Pagan on 04-01-2023 Glucose [Mass/Vol] 88 mg/dL [facility] Comment on above: Random Glucose Refer ence Range is dependent on time and content of last meal. Glucose of more than 200 mg/dL in a nonstressed, ambulatory subject supports the diagnosis of Diabetes Mellitus. Glucose Poct Glucometerson 0 04-01-2023 Glucose [Mass/Vol] 152 mg/dL Normal [facility] Comment on above: Result Comment: [place] Glucose Reference Range is dependent on time and content of last meal. Glucose of more than 200 mg/dL in a nonstressed, ambulatory subject supports the diagnosis of Diabetes Mellitus.PERFORMED BY:[place] [place] [phone] MEDICAL DIRECTORRAMEZ LARSON M.D. Performed By: #### G DAVID ####Point of Care testing, Glucose [Mass/Vol] 126 mg/dL Normal [facility] Comment on above: Result Comment: [place] Glucose Reference Range is dependent on time and content of last meal. Glucose of more than 200 mg/dL in a nonstressed, ambulatory subject supports the diagnosis of Diabetes Mellitus.PERFORMED BY:[place] [address] [place] [phone] MEDICAL DIRECTORRAMEZ LARSON M.D. Performed By: #### G DAVID ####Point of Care testing, Glucose [Mass/volume] in Ser um or PlasmaOrdered By: Taco Freed on 04-01-2023 Glucose [Mass/Vol] 142 mg/dL High 70-100 [facility] Comment on above: ADA recommended refe rence rangeRandom Glucose Reference Range is dependent on time and content of last meal. Glucose of more than 200 mg/dL in a nonstressed, ambulatory subject supports the diagnosis of Diabetes Mellitus. Result Comment: [place] Glucose Reference Range is dependent on time and content of last meal. Glucose of more than 200 mg/dL in a nonstressed, ambulatory subject supports the diagnosis of Diabetes Mellitus. ADA recommended reference range Performed By: #### C K, PT, CBC, HEPATIC, BNP, BMP, HS TROP, PTT ####[place] [id number] [facility] Hematocrit [Volume Fraction] of Blood by Automated countOrdered By: Taco Freed on 04-01-2023 Hematocrit (Bld) [Volume fraction] 33.1 % Low 34.0-46.4 [facility] Comment on above: Performed By: #### C K, PT, CBC, HEPATIC, BNP, BMP, HS TROP, PTT ####[place] [id number] [facility] Hemoglobin [Mass/volume] in BloodOrdered By: Taco Freed on 04-01-2023 Hemoglobin (Bld) [Mass/Vol] 10.2 g/dL Low 11.8-15.4 [facility] Comment on above: Performed By: #### C K, PT, CBC, HEPATIC, BNP, BMP, HS TROP, PTT ####[facility] Hepatic Panelon 04-01-2023 Albumin [Mass/Vol] 3.5 g/dL Normal 3.5-5.7 [facility] Comment on above: Performed By: #### C K, PT, CBC, HEPATIC, BNP, BMP, HS TROP, PTT ####[facility] Bilirubin,Indirect 0.4 mg/dL Normal [facility] Comment on above: Performed By: #### C K, PT, CBC, HEPATIC, BNP, BMP, HS TROP, PTT ####[facility] Bilirubin.indirect [Mass/Vol] 0.00 mg/dL Low 0.03-0.18 [facility] Comment on above: Result Comment: If t he DBIL is less than 0.1, IBIL is not able to be calculated. Performed By: #### C K, PT, CBC, HEPATIC, BNP, BMP, HS TROP, PTT ####[facility] INR in Platelet poor plasma by Coagulation assayOrdered By: Taco Freed on 04-01-2023 INR Coag (PPP) [Relative time] 1.0 {INR} Normal [facility] Comment on above: INR Therapeutic Rang e A) Pre- and Peroperative OAT started two weeks before surgery. NOT HIP SURGERY: 1.5 - 2.5 HIP SURGERY: 2 - 3B) Primary and secondary prevention of venous THROMBOSIS: 2 - 3C) Active venous thrombosis, pulmonary embolismand prevention of recurrent venous thrombosis: 2 - 3D) Prevention of arterial thromboembolismincluding patients with mechanical heart valves: 3 - 4.5 Result Comment: INR Therapeutic Range A) Pre- [...] 3 - 4.5 Performed By: #### C K, PT, CBC, HEPATIC, BNP, BMP, HS TROP, PTT ####[facility] Leukocytes [#/volume] correc tr for nucleated erythrocytes in Blood by Automated counOrdered By: Taco Freed on 04-01-2023 WBC corrected for nucl RBC Auto (Bld) [#/Vol] 8.8 10*3/uL 3.8-11.6 [facility] Leukocytes [#/volume] in Blo od by Automated countOrdered By: Taco Freed on 04-01-2023 WBC (Bld) [#/Vol] 8.8 10*3/uL Normal 3.8-11.6 [facility] Comment on above: Performed By: #### C K, PT, CBC, HEPATIC, BNP, BMP, HS TROP, PTT ####[address] Lymphocytes [#/volume] in Bl ood by Automated countOrdered By: Taco Freed on 04-01-2023 Lymphocytes (Bld) [#/Vol] 1.4 10*3/uL Normal 1.00-4.8 [facility] Comment on above: Performed By: #### C K, PT, CBC, HEPATIC, BNP, BMP, HS TROP, PTT ####[place] [address] Lymphocytes/100 leukocytes i n Blood by Automated countOrdered By: Taco Freed on 04-01-2023 Lymphocytes/100 WBC (Bld) 15.5 % Normal . [facility] Comment on above: Performed By: #### C K, PT, CBC, HEPATIC, BNP, BMP, HS TROP, PTT ####[place] [id number] [facility] MCH [Entitic mass] by Automa tr countOrdered By: Taco Freed on 02-20-2024 MCH (RBC) [Entitic mass] 26.7 pg Normal 24.7-34.3 [facility] Comment on above: Performed By: #### C K, PT, CBC, HEPATIC, BNP, BMP, HS TROP, PTT ####[facility] MCHC Auto (RBC) [Mass/Vol]Or dered By: Taco Freed on 04-01-2023 MCHC (RBC) [Mass/Vol] 30.8 g/dL 32.0-35.[address] [facility] MCV [Entitic volume] by Auto mated countOrdered By: Taco Freed on 04-01-2023 MCV (RBC) [Entitic vol] 86.7 fL Normal 80-100 [facility] Comment on above: Performed By: #### C K, PT, CBC, HEPATIC, BNP, BMP, HS TROP, PTT ####[place] [address] Monocyte distribution width [Entitic volume] in Blood by AutomatedOrdered By: Taco Freed on 04-01-2023 Monocyte distribution width Auto (Bld) [Entitic vol] 23.82 % 0.00-20.00 [facility] Comment on above: For adults in ED, MD W > 20.0 may be associated with a higher risk of sepsis during the first 12 hrs of hospital admission Neutrophils [#/volume] in Bl ood by Automated countOrdered By: Taco Freed on 04-01-2023 Neutrophils (Bld) [#/Vol] 6.1 10*3/uL Normal 1.8-7.7 [facility] Comment on above: Performed By: #### C K, PT, CBC, HEPATIC, BNP, BMP, HS TROP, PTT ####[facility] No Panel InformationOrdered By: Teresa Pagan on 04-01-2023 Bedside Glucose Comment Glu2: cleaned meter [facility] No Panel InformationOrdered By: Taco Freed on 04-01-2023 Estimated GFR (CKD-EPI) 6.414 mL/Min [facility] Pharm[facility] Creatinine Clearance (Chem 6.56 [facility] Nucleated erythrocytes [Pres ence] in Blood by Automated countOrdered By: Taco Freed on 04-01-2023 Nucleated RBC Auto Ql (Bld) 0.0 /100{WBC} 0-0.5 [facility] Office Visiton 04-01-2023 Follow-up visit [id number] Wilbert Wilson 1945 F Date Provider Department Center 04/01/2023 241-NADEEM SANCHEZ [facility] No family history on file Level of Service:13387 [place] OFFICE/OUTPATIENT ESTABLISHED LOW MDM 20 MIN Normal [facility] Partial Thromboplastin Timeo n 04-01-2023 aPTT Coag (Bld) [Time] 35.7 s Normal 25.1-36.5 [facility] Comment on above: Result Comment: A he matocrit value greater than 55% may lead to inaccurate results in coagulation testing. Patients having hematocrit values >55% require a special collection tube for coagulation studies. Please contact the laboratory at [phone] for redraw instructions.PERFORMED BY:[address] [address] [place], [place] [phone] MEDICAL DIRECTORRAMEZ LARSON M.D. Performed By: #### C K, PT, CBC, HEPATIC, BNP, BMP, HS TROP, PTT ####[facility] [address] [place] [address] [facility] Platelet mean volume [Entiti c volume] in Blood by Automated countOrdered By: Taco Freed on 04-01-2023 Platelet mean volume (Bld) [Entitic vol] 7.8 fL Normal 6.3-10.7 [facility] Comment on above: Performed By: #### C K, PT, CBC, HEPATIC, BNP, BMP, HS TROP, PTT ####[address] [address] [place] Platelets [#/volume] in Bloo d by Automated countOrdered By: Taco Freed on 04-01-2023 Platelets (Bld) [#/Vol] 289 10*3/uL Normal 150-450 [facility] Comment on above: Performed By: #### C K, PT, CBC, HEPATIC, BNP, BMP, HS TROP, PTT ####[place] [address] [place] [id number] [facility] Potassium [Moles/volume] in Serum or PlasmaOrdered By: Taco Freed on 04-01-2023 Potassium [Moles/Vol] 5.3 mmol/L High 3.5-5.[address] [facility] Comment on above: Performed By: #### C K, PT, CBC, HEPATIC, BNP, BMP, HS TROP, PTT ####[place] [address] [place] [id number] [facility] Protein [Mass/volume] in Ser um or PlasmaOrdered By: Taco Freed on 04-01-2023 Protein [Mass/Vol] 7.1 g/dL Normal 6.4-8.9 [facility] Comment on above: Performed By: #### C K, PT, CBC, HEPATIC, BNP, BMP, HS TROP, PTT ####[place] [id number] [facility] Prothrombin time (PT)Ordered By: Taco Freed on 04-01-2023 PT Coag (PPP) [Time] 11.3 s Normal 9.0-12.9 [facility] Comment on above: A hematocrit value g reater than 55% may lead to inaccurate results in coagulation testing. Patients having hematocrit values >55% require a special collection tube for coagulation studies. Please contact the laboratory at [phone] for redraw instructions. Result Comment: A he matocrit value greater than 55% may lead to inaccurate results in coagulation testing. Patients having hematocrit values >55% require a special collection tube for coagulation studies. Please contact the laboratory at [phone] for redraw instructions. Performed By: #### C K, PT, CBC, HEPATIC, BNP, BMP, HS TROP, PTT ####[place] [address] [place] [id number] [facility] Serum globulin measurement b y calculation (mass/volume)Ordered By: Taco Freed on 04-01-2023 Globulin (S) [Mass/Vol] 3.6 g/dL [facility] Comment on above: Performed By: #### C K, PT, CBC, HEPATIC, BNP, BMP, HS TROP, PTT ####[place] [address] Serum or plasma albumin/glob ulin mass ratioOrdered By: Tcao Freed on 04-01-2023 Albumin/Globulin [Mass ratio] 1.0 {ratio} Normal [facility] Comment on above: Performed By: #### C K, PT, CBC, HEPATIC, BNP, BMP, HS TROP, PTT ####[address] Serum or plasma anion gap de terminationOrdered By: Taco Freed on 04-01-2023 Anion gap [Moles/Vol] 16.7 mmol/L High 6.0-15.0 [facility] Comment on above: Performed By: #### C K, PT, CBC, HEPATIC, BNP, BMP, HS TROP, PTT ####[address] Serum or plasma non-glucuron idated bilirubin measurement (mass/volume)Ordered By: Taco Freed on 04-01-2023 Bilirubin.indirect [Mass/Vol] 0.4 mg/dL [facility] Sodium [Moles/volume] in Ser um or PlasmaOrdered By: Taco Freed on 04-01-2023 Sodium [Moles/Vol] 131 mmol/L Low 136-145 [facility] Comment on above: Performed By: #### C K, PT, CBC, HEPATIC, BNP, BMP, HS TROP, PTT ####[place] [id number] [facility] Troponin I High Sensitivityo n 04-01-2023 Troponin I High Sensitivity 15.3 pg/mL High 0.0-15.0 [facility] Comment on above: Result Comment: PERF ORMED BY:[address] [place], [place] [phone] MEDICAL DIRECTORRAMEZ LARSON M.D. Performed By: #### C K, PT, CBC, HEPATIC, BNP, BMP, HS TROP, PTT ####[facility] [address] [place] [id number] [facility] Troponin I.cardiac [Mass/vol ume] in Serum or Plasma by Detection limit <= 0.01 ng/Ordered By: Taco Freed on 04-01-2023 Troponin I.cardiac DL <= 0.01 ng/mL [Mass/Vol] 15.3 pg/mL 0.0-15.0 [facility] Urea nitrogen [Mass/volume] in Serum or PlasmaOrdered By: Taco Freed on 04-01-2023 Urea nitrogen [Mass/Vol] 69 mg/dL High 7-25 [facility] Comment on above: Performed By: #### C K, PT, CBC, HEPATIC, BNP, BMP, HS TROP, PTT ####[facility] [address] [place] [id number] [facility] XR chest 1V portableon 04-01 XR chest 1V portable Normal [facility] Nursing Assessment - Woundon 03-26-2023 Nursing Assessment - Wound [id number]#3.00TI FF [facility] Nursing Note - Woundon 03-26 Nursing Note - Wound [id number]#1.00TI FF [facility] Physician Orderon 03-26-2023 Physician Order [id number]#1.00TI FF [facility] Progress Note - Woundon 03-13 Progress Note - Wound [id number]#1.00TI FF [facility] Multi-Wound Charton 03-25-19 Multi-Wound Chart [id number] 2020 [id number]#1.00TI FF [facility] Consent for Procedure/Surger yon 03-18-2023 Consent for Procedure/Surgery [id number]#1.00TI FF [facility] Consent for Procedure/Surgery [id number]#1.00TI FF [facility] Consent for Treatmenton Consent for Treatment [id number]#1.00TIF F [facility] Multi-Wound Charton 03-18-19 Multi-Wound Chart [id number] 2019 [id number]#1.00TI FF [facility] Nursing Assessment - Woundon 03-18-2023 Nursing Assessment - Wound [id number]#1.00TI FF [facility] Nursing Note - Woundon 03-18 Nursing Note - Wound [id number]#1.00TI [facility] Physician Orderon 03-18-2023 Physician Order [id number] 2019 [id number]#1.00TI FF [facility] Procedure - Woundon 03-18-19 24 Procedure - Wound [id number] 2019 [id number]#1.00TI FF [facility] Progress Note - Woundon Progress Note - Wound [id number]#1.00TI [facility] Basic Metabolic Panelon 02-11 Anion gap [Moles/Vol] 10.5 mmol/L Normal 6.0-15.0 [facility] Comment on above: Performed By: #### Jesusita Powell, BMP ####[facility] [address] [place] [address] [facility] Calcium [Mass/Vol] 9.3 mg/dL Normal 8.6-10.3 [facility] Comment on above: Performed By: #### M Sherry, BMP ####[facility] [address] [place] [address] [facility] Chloride [Moles/Vol] 99 mmol/L Normal 98-107 [facility] Comment on above: Performed By: #### Jesusita Powell, BMP ####[address] [place] [address] [facility] CO2 [Moles/Vol] 27.2 mmol/L Normal 21.0-31.0 [facility] Comment on above: Performed By: #### Jesusita Powell, BMP ####[address] [place] [address] [facility] Creatinine [Mass/Vol] 4.34 mg/dL Significan t change up 0.60-1.20 [facility] Comment on above: Performed By: #### Jesusita Powell, BMP ####[address] [place] [address] [facility] Creatinine Clr Calc Pharmacy 9.52 [facility] Comment on above: Performed By: #### Jesusita Powell, BMP ####[address] [place] [address] [facility] GFR/1.73 sq M.predicted MDRD (S/P/Bld) [Vol rate/Area] 10.031 mL/min/{1.73_m2} [facility] Comment on above: Performed By: #### Jesusita Powell, BMP ####[address] [place] [address] [facility] Glucose [Mass/Vol] 175 mg/dL High 70-100 [facility] Comment on above: Result Comment: [place] Glucose Reference Range is dependent on time and content of last meal. Glucose of more than 200 mg/dL in a nonstressed, ambulatory subject supports the diagnosis of Diabetes Mellitus. ADA recommended reference range Performed By: #### Jesusita Powell, BMP ####[address] [place] [address] [facility] Potassium [Moles/Vol] 4.7 mmol/L Significan t change down 3.5-5.1 [facility] Comment on above: Performed By: #### Jesusita Powell, BMP ####[address] [place] [address] [facility] Sodium [Moles/Vol] 132 mmol/L Low 136-145 [facility] Comment on above: Performed By: #### M CHELSI Powell ####[facility] [address] [place] [address] [facility] Urea nitrogen [Mass/Vol] 39 mg/dL High 09-03 [facility] Comment on above: Performed By: #### M Sherry, CHELSI ####[facility] [address] [place] [address] [facility] ECG 12 lead ECGon 03-07-2023 ECG 12 lead ECG Normal [facility] Glucose Poct Glucometerson 0 03-07-2023 Glucose [Mass/Vol] 199 mg/dL Normal [facility] Comment on above: Result Comment: [facility][note 3] Glucose Reference Range is dependent on time and content of last meal. Glucose of more than 200 mg/dL in a nonstressed, ambulatory subject supports the diagnosis of Diabetes Mellitus.PERFORMED BY:[address] [place], [place] [phone] MEDICAL DIRECTORRAMEZ LARSON M.D. Performed By: #### G LUANNITA ####Point of Care testing, Glucose [Mass/Vol] 130 mg/dL Normal [facility] Comment on above: Result Comment: [facility][note 3] Glucose Reference Range is dependent on time and content of last meal. Glucose of more than 200 mg/dL in a nonstressed, ambulatory subject supports the diagnosis of Diabetes Mellitus.PERFORMED BY:[address] [address] [place] [place], [place] [phone] MEDICAL DIRECTORRAMEZ LARSON M.D. Performed By: #### G LUANNITA ####Point of Care testing, Commemt1 Glu2: Cleaned Meter Normal [facility] Comment on above: Result Comment: PERF ORMED BY:[address] [address] [address] [address] [place], [place] [phone] MEDICAL DIRECTORRAMEZ LARSON M.D. Performed By: #### G LULS ####Point of Care testing, Glucose [Mass/Vol] 148 mg/dL Normal [facility] Comment on above: Result Comment: [facility][note 3] Glucose Reference Range is dependent on time and content of last meal. Glucose of more than 200 mg/dL in a nonstressed, ambulatory subject supports the diagnosis of Diabetes Mellitus. Performed By: #### G LULS ####Point of Care testing, Glucose [Mass/Vol] 191 mg/dL Normal [facility] Comment on above: Result Comment: [facility][note 3] Glucose Reference Range is dependent on time and content of last meal. Glucose of more than 200 mg/dL in a nonstressed, ambulatory subject supports the diagnosis of Diabetes Mellitus.PERFORMED BY:[address] [place], [place] [phone] MEDICAL DIRECTORRAMEZ LARSON M.D. Performed By: #### G LULS ####Point of Care testing, Magnesiumon 03-07-2023 Magnesium [Mass/Vol] 1.8 mg/dL Low 1.9-2.7 [facility] Comment on above: Result Comment: PERF ORMED BY:[address] [place], [place] [phone] MEDICAL MAJOR LARSON M.D. Performed By: #### M Sherry, BMP ####[address] [address] [facility] C-Reactive Proteinon 024 C-Reactive Protein 16.1 mg/dL High 0.0-0.5 [facility] Comment on above: Result Comment: PERF ORMED BY:[address] [place], [place] [phone] MEDICAL DIRECTORRAMEZ LARSON M.D. Performed By: #### M G, HS TROP, CBC, CRP, PHOS ####[address] [place] [address] [facility] Complete Blood Count Auto Di ffon 03-06-2023 Basophils (Bld) [#/Vol] 0.0 10*3/uL Normal 0.0-0.2 [facility] Comment on above: Result Comment: PERF ORMED BY:[address] [place], [place] [phone] MEDICAL DIRECTORRAMEZ LARSON M.D. Performed By: #### M G, HS TROP, CBC, CRP, PHOS ####[address] Basophils/100 WBC (Bld) 0.5 % Normal . [facility] Comment on above: Performed By: #### M G, HS TROP, CBC, CRP, PHOS ####[address] Eosinophils (Bld) [#/Vol] 0.1 10*3/uL Normal 0.0-0.45 [facility] Comment on above: Performed By: #### M G, HS TROP, CBC, CRP, PHOS ####[address] Eosinophils/100 WBC (Bld) 0.7 % Normal . [facility] Comment on above: Performed By: #### M G, HS TROP, CBC, CRP, PHOS ####[address] Erythrocyte distribution width (RBC) [Ratio] 18.1 % High 11.9-15.3 [facility] Comment on above: Performed By: #### M G, HS TROP, CBC, CRP, PHOS ####[address] Hematocrit (Bld) [Volume fraction] 32.4 % Low 34.0-46.4 [facility] Comment on above: Performed By: #### M G, HS TROP, CBC, CRP, PHOS ####[address] Hemoglobin (Bld) [Mass/Vol] 10.0 g/dL Low 11.8-15.4 [facility] Comment on above: Performed By: #### M G, HS TROP, CBC, CRP, PHOS ####[address] Lymphocytes (Bld) [#/Vol] 1.3 10*3/uL Normal 1.00-4.8 [facility] Comment on above: Performed By: #### M G, HS TROP, CBC, CRP, PHOS ####[address] Lymphocytes/100 WBC (Bld) 15.9 % Normal . [facility] Comment on above: Performed By: #### M G, HS TROP, CBC, CRP, PHOS ####[address] MCH (RBC) [Entitic mass] 26.7 pg Normal 24.7-34.3 [facility] Comment on above: Performed By: #### M G, HS TROP, CBC, CRP, PHOS ####[address] MCV (RBC) [Entitic vol] 86.3 fL Normal 80-100 [facility] Comment on above: Performed By: #### M G, HS TROP, CBC, CRP, PHOS ####[address] Mean Corpuscular HGB Conc 31.0 g/dL Low 32.0-35.0 [facility] Comment on above: Performed By: #### M G, HS TROP, CBC, CRP, PHOS ####[address] Monocytes (Bld) [#/Vol] 1.1 10*3/uL High 0.0-0.8 [facility] Comment on above: Performed By: #### M G, HS TROP, CBC, CRP, PHOS ####[address] Monocytes/100 WBC (Bld) 13.2 % Normal . [facility] Comment on above: Performed By: #### M G, HS TROP, CBC, CRP, PHOS ####[address] Neutrophils (Bld) [#/Vol] 5.8 10*3/uL Normal 1.8-7.7 [facility] Comment on above: Performed By: #### M G, HS TROP, CBC, CRP, PHOS ####[address] [address] [facility] Neutrophils/100 WBC (Bld) 69.7 % Normal . [facility] Comment on above: Performed By: #### M G, HS TROP, CBC, CRP, PHOS ####[address] [address] [facility] NRBC% 0.1 /100{WBC} Normal 0-0.5 [facility] Comment on above: Performed By: #### M G, HS TROP, CBC, CRP, PHOS ####[place] [id number] [facility] Platelet mean volume (Bld) [Entitic vol] 7.6 fL Normal 6.3-10.7 [facility] Comment on above: Performed By: #### M G, HS TROP, CBC, CRP, PHOS ####[place] [address] [facility] Platelets (Bld) [#/Vol] 371 10*3/uL Normal 150-450 [facility] Comment on above: Performed By: #### M G, HS TROP, CBC, CRP, PHOS ####[place] [id number] [facility] RBC (Bld) [#/Vol] 3.75 10*6/uL Normal 3.60-5.00 [facility] Comment on above: Performed By: #### M G, HS TROP, CBC, CRP, PHOS ####[address] [address] [facility] WBC (Bld) [#/Vol] 8.3 10*3/uL Normal 3.8-11.6 [facility] Comment on above: Performed By: #### M G, HS TROP, CBC, CRP, PHOS ####[address] [address] [facility] ECG 12 lead ECGon 03-06-2023 ECG 12 lead ECG Normal [facility] Glucoseon 03-06-2023 Glucose [Mass/Vol] 223 mg/dL High 70-100 [facility] Comment on above: Order Comment: Comme nt On awakening, before meals, and before bedtime. Result Comment: [place] om Glucose Reference Range is dependent on time and content of last meal. Glucose of more than 200 mg/dL in a nonstressed, ambulatory subject supports the diagnosis of Diabetes Mellitus. ADA recommended reference rangePERFORMED BY:[address] [address] [place], [place] [phone] MEDICAL MAJOR LARSON M.D. Performed By: #### G MARY ####[address] [address] [place] Glucose Poct Glucometerson 0 03-06-2023 Glucose [Mass/Vol] 188 mg/dL Normal [facility] Comment on above: Result Comment: [place] Glucose Reference Range is dependent on time and content of last meal. Glucose of more than 200 mg/dL in a nonstressed, ambulatory subject supports the diagnosis of Diabetes Mellitus.PERFORMED BY:[address] [address] [place], [place] [phone] MEDICAL MAJOR LARSON M.D. Performed By: #### G LULS ####Point of Care testing, Glucose [Mass/Vol] 131 mg/dL Normal [facility] Comment on above: Result Comment: [place] Glucose Reference Range is dependent on time and content of last meal. Glucose of more than 200 mg/dL in a nonstressed, ambulatory subject supports the diagnosis of Diabetes Mellitus.PERFORMED BY:[address] [address] [address] [place], [place] [phone] MEDICAL MAJOR LARSON M.D. Performed By: #### G LULS ####Point of Care testing, Glucose [Mass/Vol] 184 mg/dL Normal [facility] Comment on above: Result Comment: [place] Glucose Reference Range is dependent on time and content of last meal. Glucose of more than 200 mg/dL in a nonstressed, ambulatory subject supports the diagnosis of Diabetes Mellitus.PERFORMED BY:[address] [address] [place], [place] [phone] MEDICAL DIRECTORRAMEZ LARSON M.D. Performed By: #### G LULS ####Point of Care testing, Glucose [Mass/Vol] 132 mg/dL Normal [facility] Comment on above: Result Comment: [facility][note 3] Glucose Reference Range is dependent on time and content of last meal. Glucose of more than 200 mg/dL in a nonstressed, ambulatory subject supports the diagnosis of Diabetes Mellitus.PERFORMED BY:[address] [address] [place], [place] [phone] MEDICAL DIRECTORRAMEZ LARSON M.D. Performed By: #### G LULS ####Point of Care testing, Lactic Acid Reflexon 024 Lactic Acid Reflex 1.8 mmol/L Normal 0.5-2.2 [facility] Comment on above: Result Comment: PERF ORMED BY:[address] [place], [place] [phone] MEDICAL DIRECTORRAMEZ LARSON M.D. Performed By: #### L ACTIC RFX ####[place] [id number] [facility] Magnesiumon 03-06-2023 Magnesium [Mass/Vol] 2.0 mg/dL Normal 1.9-2.7 [facility] Comment on above: Performed By: #### M G, HS TROP, CBC, CRP, PHOS ####[place] [id number] [facility] Phosphoruson 03-06-2023 Phosphate [Mass/Vol] 3.2 mg/dL Normal 2.5-4.5 [facility] Comment on above: Performed By: #### M G, HS TROP, CBC, CRP, PHOS ####[place] [id number] [facility] Troponin I High Sensitivityo n 03-06-2023 Troponin I High Sensitivity 30.4 pg/mL High 0.0-15.0 [facility] Comment on above: Result Comment: PERF ORMED BY:[address] [place], [place] [phone] MEDICAL DIRECTORRAMEZ LARSON M.D. Performed By: #### M G, HS TROP, CBC, CRP, PHOS ####[address] [place] [address] [facility] Alanine aminotransferase [En zymatic activity/volume] in Serum or PlasmaOrdered By: Constantine Perdomo on 03-05-2023 ALT [Catalytic activity/Vol] 18 U/L 7-52 [facility] Albumin [Mass/volume] in Ser um or Plasma by Bromocresol green (BCG) dye binding methoOrdered By: Constantine Perdomo on 03-05-2023 Albumin BCG dye [Mass/Vol] 3.5 g/dL 3.5-5.7 [facility] Alkaline phosphatase [Enzyma tic activity/volume] in Serum or PlasmaOrdered By: Constantine Perdomo on 03-05-2023 ALP [Catalytic activity/Vol] 161 U/L 34-104 [facility] Aspartate aminotransferase [ Enzymatic activity/volume] in Serum or PlasmaOrdered By: Constantine Perdomo on 03-05-2023 AST [Catalytic activity/Vol] 23 U/L 13-39 [facility] B-Type Natriuretic Peptideon 03-05-2023 Natriuretic peptide B (Bld) [Mass/Vol] 872.0 pg/mL High 5-100 [facility] Comment on above: Result Comment: PERF ORMED BY:[address] [place], [place] [phone] MEDICAL DIRECTORRAMEZ LARSON M.D. Performed By: #### C MP, CUBLD, LACTIC, BNP, HS TROP, CBC ####[address] [place] [address] [facility] Basophils Auto (Bld) [#/Vol] Ordered By: Constantine Perdomo on 03-05-2023 Basophils (Bld) [#/Vol] 0.0 10*3/uL 0.0-0.2 [facility] Basophils/100 WBC Auto (Bld) Ordered By: Constantine Perdomo on 03-05-2023 Basophils/100 WBC (Bld) 0.4 % . [facility] Bilirubin.total [Mass/volume ] in Serum or PlasmaOrdered By: Constantine Perdomo on 03-05-2023 Bilirubin [Mass/Vol] 0.6 mg/dL 0.3-1.0 [facility] Blood Cultureon 03-05-2023 Bacteria identified Cx Nom (Bld) NO GROWTH 5 DAYS PERFORMED BY: [facility] [id number] PATHOLOGIST TRANSMISSION MECHANIC RAMEZ LARSON M.D. [facility] Comment on above: Performed By: #### C MP, CUBLD, LACTIC, BNP, HS TROP, CBC ####[facility] [address] [place] [id number] [facility] Bacteria identified Cx Nom (Bld) NO GROWTH 5 DAYS PERFORMED BY: [facility] [address] [place] [id number] PATHOLOGIST TRANSMISSION MECHANIC RAMEZ LARSON M.D. [facility] Comment on above: Performed By: #### C MP, CUBLD, LACTIC, BNP, HS TROP, CBC ####[facility] [id number] [place] [address] [facility] CT head/brain wo conon 03-05 CT head/brain wo con Normal [facility] Calcium [Mass/volume] in Ser um or PlasmaOrdered By: Constantine Perdomo on 03-05-2023 Calcium [Mass/Vol] 10.1 mg/dL 8.6-10.3 [facility] Carbon dioxide, total [Moles /volume] in Serum or PlasmaOrdered By: Constantine Perdomo on 03-05-2023 CO2 [Moles/Vol] 26.7 mmol/L 21.0-31.0 [facility] Chloride [Moles/volume] in S steffanie or PlasmaOrdered By: Constantine Perdomo on 03-05-2023 Chloride [Moles/Vol] 92 mmol/L 98-107 [facility] Complete Blood Count Auto Di ffon 03-05-2023 Basophils (Bld) [#/Vol] 0.0 10*3/uL Normal 0.0-0.2 [facility] Comment on above: Result Comment: PERF ORMED BY:[address] [place], [place] [phone] MEDICAL DIRECTORRAMEZ LARSON M.D. Performed By: #### C MP, CUBLD, LACTIC, BNP, HS TROP, CBC ####[address] Basophils/100 WBC (Bld) 0.4 % Normal . [facility] Comment on above: Performed By: #### C MP, CUBLD, LACTIC, BNP, HS TROP, CBC ####[address] Eosinophils (Bld) [#/Vol] 0.0 10*3/uL Normal 0.0-0.45 [facility] Comment on above: Performed By: #### C MP, CUBLD, LACTIC, BNP, HS TROP, CBC ####[address] Eosinophils/100 WBC (Bld) 0.0 % Normal . [facility] Comment on above: Performed By: #### C MP, CUBLD, LACTIC, BNP, HS TROP, CBC ####[address] Erythrocyte distribution width (RBC) [Ratio] 18.8 % High 11.9-15.3 [facility] Comment on above: Performed By: #### C MP, CUBLD, LACTIC, BNP, HS TROP, CBC ####[address] Hematocrit (Bld) [Volume fraction] 33.8 % Low 34.0-46.4 [facility] Comment on above: Performed By: #### C MP, CUBLD, LACTIC, BNP, HS TROP, CBC ####[address] Hemoglobin (Bld) [Mass/Vol] 10.8 g/dL Low 11.8-15.4 [facility] Comment on above: Performed By: #### C MP, CUBLD, LACTIC, BNP, HS TROP, CBC ####[address] Lymphocytes (Bld) [#/Vol] 0.7 10*3/uL Low 1.00-4.8 [facility] Comment on above: Performed By: #### C MP, CUBLD, LACTIC, BNP, HS TROP, CBC ####[address] Lymphocytes/100 WBC (Bld) 9.1 % Normal . [facility] Comment on above: Performed By: #### C MP, CUBLD, LACTIC, BNP, HS TROP, CBC ####[address] MCH (RBC) [Entitic mass] 27.2 pg Normal 24.7-34.3 [facility] Comment on above: Performed By: #### C MP, CUBLD, LACTIC, BNP, HS TROP, CBC ####[address] MCV (RBC) [Entitic vol] 85.0 fL Normal 80-100 [facility] Comment on above: Performed By: #### C MP, CUBLD, LACTIC, BNP, HS TROP, CBC ####[address] Mean Corpuscular HGB Conc 32.0 g/dL Normal 32.0-35.0 [facility] Comment on above: Performed By: #### C MP, CUBLD, LACTIC, BNP, HS TROP, CBC ####[address] Monocytes (Bld) [#/Vol] 0.8 10*3/uL Normal 0.0-0.8 [facility] Comment on above: Performed By: #### C MP, CUBLD, LACTIC, BNP, HS TROP, CBC ####[address] Monocytes/100 WBC (Bld) 24.78 % High 0.00-20.00 [facility] Comment on above: Result Comment: For adults in ED, MDW > 20.0 may be associated with a higher risk of sepsis during the first 12 hrs of hospital admission Performed By: #### C MP, CUBLD, LACTIC, BNP, HS TROP, CBC ####[place] [id number] [facility] Monocytes/100 WBC (Bld) 9.2 % Normal . [facility] Comment on above: Performed By: #### C MP, CUBLD, LACTIC, BNP, HS TROP, CBC ####[address] Neutrophils (Bld) [#/Vol] 6.6 10*3/uL Normal 1.8-7.7 [facility] Comment on above: Performed By: #### C MP, CUBLD, LACTIC, BNP, HS TROP, CBC ####[address] Neutrophils/100 WBC (Bld) 81.3 % Normal . [facility] Comment on above: Performed By: #### C MP, CUBLD, LACTIC, BNP, HS TROP, CBC ####[place] [id number] [facility] NRBC% 0.0 /100{WBC} Normal 0-0.5 [facility] Comment on above: Performed By: #### C MP, CUBLD, LACTIC, BNP, HS TROP, CBC ####[place] [id number] [facility] Platelet mean volume (Bld) [Entitic vol] 7.3 fL Normal 6.3-10.7 [facility] Comment on above: Performed By: #### C MP, CUBLD, LACTIC, BNP, HS TROP, CBC ####[place] [id number] [facility] Platelets (Bld) [#/Vol] 418 10*3/uL Normal 150-450 [facility] Comment on above: Performed By: #### C MP, CUBLD, LACTIC, BNP, HS TROP, CBC ####[place] [id number] [facility] RBC (Bld) [#/Vol] 3.98 10*6/uL Normal 3.60-5.00 [facility] Comment on above: Performed By: #### C MP, CUBLD, LACTIC, BNP, HS TROP, CBC ####[address] WBC (Bld) [#/Vol] 8.1 10*3/uL Normal 3.8-11.6 [facility] Comment on above: Performed By: #### C MP, CUBLD, LACTIC, BNP, HS TROP, CBC ####[address] Comprehensive Metabolic Pane eliseo 03-05-2023 Albumin [Mass/Vol] 3.5 g/dL Normal 3.5-5.7 [facility] Comment on above: Performed By: #### C MP, CUBLD, LACTIC, BNP, HS TROP, CBC ####[address] Albumin/Globulin [Mass ratio] 0.9 {ratio} Normal [facility] Comment on above: Performed By: #### C MP, CUBLD, LACTIC, BNP, HS TROP, CBC ####[address] ALP [Catalytic activity/Vol] 161 U/L High 34-104 [facility] Comment on above: Performed By: #### C MP, CUBLD, LACTIC, BNP, HS TROP, CBC ####[address] ALT [Catalytic activity/Vol] 18 U/L Normal 7-52 [facility] Comment on above: Performed By: #### C MP, CUBLD, LACTIC, BNP, HS TROP, CBC ####[address] Anion gap [Moles/Vol] 17.4 mmol/L High 6.0-15.0 [facility] Comment on above: Performed By: #### C MP, CUBLD, LACTIC, BNP, HS TROP, CBC ####[place] [id number] [facility] AST [Catalytic activity/Vol] 23 U/L Normal 13-39 [facility] Comment on above: Performed By: #### C MP, CUBLD, LACTIC, BNP, HS TROP, CBC ####[place] [id number] [facility] Bilirubin [Mass/Vol] 0.6 mg/dL Normal 0.3-1.0 [facility] Comment on above: Performed By: #### C MP, CUBLD, LACTIC, BNP, HS TROP, CBC ####[place] [id number] [facility] Calcium [Mass/Vol] 10.1 mg/dL Normal 8.6-10.3 [facility] Comment on above: Performed By: #### C MP, CUBLD, LACTIC, BNP, HS TROP, CBC ####[address] Chloride [Moles/Vol] 92 mmol/L Low 98-107 [facility] Comment on above: Performed By: #### C MP, CUBLD, LACTIC, BNP, HS TROP, CBC ####[place] [id number] [facility] CO2 [Moles/Vol] 26.7 mmol/L Normal 21.0-31.0 [facility] Comment on above: Performed By: #### C MP, CUBLD, LACTIC, BNP, HS TROP, CBC ####[place] [id number] [facility] Creatinine [Mass/Vol] 2.51 mg/dL High 0.60-1.[address] [facility] Comment on above: Performed By: #### C MP, CUBLD, LACTIC, BNP, HS TROP, CBC ####[place] [id number] [facility] Creatinine Clr Calc Pharmacy 16.47 Normal [facility] Comment on above: Result Comment: PERF ORMED BY:[address] [place], [place] [phone] MEDICAL DIRECTORRAMEZ LARSON M.D. Performed By: #### C MP, CUBLD, LACTIC, BNP, HS TROP, CBC ####[place] [address] [place] [address] [facility] GFR/1.73 sq M.predicted MDRD (S/P/Bld) [Vol rate/Area] 19.351 mL/min/{1.73_m2} Normal [facility] Comment on above: Performed By: #### C MP, CUBLD, LACTIC, BNP, HS TROP, CBC ####[address] [address] [facility] Globulin (S) [Mass/Vol] 3.8 g/dL [facility] Comment on above: Performed By: #### C MP, CUBLD, LACTIC, BNP, HS TROP, CBC ####[place] [id number] [facility] Glucose [Mass/Vol] 212 mg/dL High 70-100 [facility] Comment on above: Result Comment: [facility][note 3] Glucose Reference Range is dependent on time and content of last meal. Glucose of more than 200 mg/dL in a nonstressed, ambulatory subject supports the diagnosis of Diabetes Mellitus. ADA recommended reference range Performed By: #### C MP, CUBLD, LACTIC, BNP, HS TROP, CBC ####[place] [id number] [facility] Potassium [Moles/Vol] 3.1 mmol/L Low 3.5-5.[address] [facility] Comment on above: Performed By: #### C MP, CUBLD, LACTIC, BNP, HS TROP, CBC ####[address] [address] [facility] Protein [Mass/Vol] 7.3 g/dL Normal 6.4-8.9 [facility] Comment on above: Performed By: #### C MP, CUBLD, LACTIC, BNP, HS TROP, CBC ####[address] [address] [facility] Sodium [Moles/Vol] 133 mmol/L Low 136-145 [facility] Comment on above: Performed By: #### C MP, CUBLD, LACTIC, BNP, HS TROP, CBC ####[facility] [address] [place] [id number] [facility] Urea nitrogen [Mass/Vol] 15 mg/dL Normal 7-25 [facility] Comment on above: Performed By: #### C MP, CUBLD, LACTIC, BNP, HS TROP, CBC ####[facility] [address] [place] [id number] [facility] Consent for Procedure/Surger yon 03-05-2023 Consent for Procedure/Surgery [id number]#1.00TI FF Normal [facility] Creatinine [Mass/volume] in Serum or PlasmaOrdered By: Constantine Perdomo on 03-05-2023 Creatinine [Mass/Vol] 2.51 mg/dL 0.60-1.20 [facility] ECG 12 lead ECGon 03-05-2023 ECG 12 lead ECG Normal [facility] Eosinophils Auto (Bld) [#/Vo l]Ordered By: Constantine Perdomo on 03-05-2023 Eosinophils (Bld) [#/Vol] 0.0 10*3/uL 0.0-0.45 [facility] Eosinophils/100 WBC Auto (Bl d)Ordered By: Constantine Perdomo on 03-05-2023 Eosinophils/100 WBC (Bld) 0.0 % . [facility] Erythrocyte distribution wid th Auto (RBC) [Ratio]Ordered By: Constantine Perdomo on 03-05-2023 Erythrocyte distribution width (RBC) [Ratio] 18.8 % 11.9-15.3 [facility] Globulin Calc (S) [Mass/Vol] Ordered By: Constantine Perdomo on 03-05-2023 Globulin (S) [Mass/Vol] 3.8 g/dL [facility] Glucose Glucometer (BldC) [M ass/Vol]Ordered By: Marcel Arreaga on 03-05-2023 Glucose [Mass/Vol] 224 mg/dL [facility] Comment on above: Random Glucose Refer ence Range is dependent on time and content of last meal. Glucose of more than 200 mg/dL in a nonstressed, ambulatory subject supports the diagnosis of Diabetes Mellitus. Glucose Poct Glucometerson 0 03-05-2023 Commemt1 Glu2: Cleaned Meter Normal [facility] Comment on above: Result Comment: PERF ORMED BY:[facility] [place], [place] [phone] MEDICAL DIRECTORRAMEZ LARSON M.D. Performed By: #### G LULS ####Point of Care testing, Glucose [Mass/Vol] 224 mg/dL Normal [facility] Comment on above: Result Comment: [place] Glucose Reference Range is dependent on time and content of last meal. Glucose of more than 200 mg/dL in a nonstressed, ambulatory subject supports the diagnosis of Diabetes Mellitus. Performed By: #### G LULS ####Point of Care testing, Glucose [Mass/volume] in Ser um or PlasmaOrdered By: Constantine Perdomo on 03-05-2023 Glucose [Mass/Vol] 212 mg/dL 70-100 [facility] Comment on above: ADA recommended refe rence rangeRandom Glucose Reference Range is dependent on time and content of last meal. Glucose of more than 200 mg/dL in a nonstressed, ambulatory subject supports the diagnosis of Diabetes Mellitus. Hematocrit Auto (Bld) [Volum e fraction]Ordered By: Constantine Perdomo on 03-05-2023 Hematocrit (Bld) [Volume fraction] 33.8 % 34.0-46.4 [facility] Hemoglobin [Mass/volume] in BloodOrdered By: Constantine Perdomo on 03-05-2023 Hemoglobin (Bld) [Mass/Vol] 10.8 g/dL 11.8-15.4 [facility] Lactate [Moles/volume] in Se rum or PlasmaOrdered By: Constantine Perdomo on 03-05-2023 Lactate [Moles/Vol] 2.5 mmol/L 0.5-2.2 [facility] Comment on above: Critical Result : Ca lled to and read back by: ARMANI BRUNO at: 03/05/2023 18:20:52 by:[id number] Lactic Acidon 03-05-2023 Lactate [Moles/Vol] 2.5 mmol/L Off scale high 0.5-2.2 [facility] Comment on above: Result Comment: Crit ical Result : Called to and read back by: ARMANI BRUNO at: 03/05/2023 18:20:52 by:[id number] BY:[facility] [place], [place] [phone] MEDICAL DIRECTORRAMEZ LARSON M.D. Performed By: #### C MP, CUBLD, LACTIC, BNP, HS TROP, CBC ####[facility] [place] [address] [facility] Leukocytes [#/volume] correc tr for nucleated erythrocytes in Blood by Automated counOrdered By: Constantine Perdomo on 03-05-2023 WBC corrected for nucl RBC Auto (Bld) [#/Vol] 8.1 10*3/uL 3.8-11.6 [facility] Lymphocytes Auto (Bld) [#/Vo l]Ordered By: Constantine Perdomo on 03-05-2023 Lymphocytes (Bld) [#/Vol] 0.7 10*3/uL 1.00-4.8 [facility] Lymphocytes/100 WBC Auto (Bl d)Ordered By: Constantine Perdomo on 03-05-2023 Lymphocytes/100 WBC (Bld) 9.1 % . [facility] MCH Auto (RBC) [Entitic mass ]Ordered By: Constantien Predomo on 03-05-2023 MCH (RBC) [Entitic mass] 27.2 pg 24.7-34.3 [facility] MCHC Auto (RBC) [Mass/Vol]Or dered By: Constantine Perdomo on 03-05-2023 MCHC (RBC) [Mass/Vol] 32.0 g/dL 32.0-35.0 [facility] MCV Auto (RBC) [Entitic vol] Ordered By: Constantine Perdomo on 03-05-2023 MCV (RBC) [Entitic vol] 85.0 fL 80-100 [facility] Monocyte distribution width [Entitic volume] in Blood by AutomatedOrdered By: Constantine Perdomo on 03-05-2023 Monocyte distribution width Auto (Bld) [Entitic vol] 24.78 % 0.00-20.00 [facility] Comment on above: For adults in ED, MD W > 20.0 may be associated with a higher risk of sepsis during the first 12 hrs of hospital admission Monocytes Auto (Bld) [#/Vol] Ordered By: Constantine Perdomo on 03-05-2023 Monocytes (Bld) [#/Vol] 0.8 10*3/uL 0.0-0.8 [facility] Monocytes/100 WBC Auto (Bld) Ordered By: Constantine Perdomo on 03-05-2023 Monocytes/100 WBC (Bld) 9.2 % . [facility] Natriuretic peptide B [Mass/ Vol]Ordered By: Constantine Perdomo on 03-05-2023 Natriuretic peptide B (Bld) [Mass/Vol] 872.0 pg/mL 5-100 [facility] Neutrophils Auto (Bld) [#/Vo l]Ordered By: Constantine Perdomo on 03-05-2023 Neutrophils (Bld) [#/Vol] 6.6 10*3/uL 1.8-7.7 [facility] Neutrophils/100 WBC Auto (Bl d)Ordered By: Constantine Perdomo on 03-05-2023 Neutrophils/100 WBC (Bld) 81.3 % . [facility] No Panel InformationOrdered By: Constantine Perdomo on 03-05-2023 Estimated GFR (CKD-EPI) 19.351 mL/Min [facility] Pharmacy Creatinine Clearance (Chem 16.47 [facility] No Panel InformationOrdered By: Marcel Arreaga on 03-05-2023 Bedside Glucose Comment Glu2: cleaned meter [facility] Nucleated erythrocytes [Pres ence] in Blood by Automated countOrdered By: Constatnine Perdomo on 03-05-2023 Nucleated RBC Auto Ql (Bld) 0.0 /100{WBC} 0-0.5 [facility] Nursing Assessment - Woundon 03-05-2023 Nursing Assessment - Wound [id number]#1.00TI FF Normal [facility] Platelet mean volume Auto (B ld) [Entitic vol]Ordered By: Constantine Perdomo on 03-05-2023 Platelet mean volume (Bld) [Entitic vol] 7.3 fL 6.3-10.7 [facility] Platelets Auto (Bld) [#/Vol] Ordered By: Constantine Perdomo on 03-05-2023 Platelets (Bld) [#/Vol] 418 10*3/uL 150-450 [facility] Potassium [Moles/volume] in Serum or PlasmaOrdered By: Constantine Perdomo on 03-05-2023 Potassium [Moles/Vol] 3.1 mmol/L 3.5-5.[address] [facility] Protein [Mass/volume] in Ser um or PlasmaOrdered By: Constantine Perdomo on 03-05-2023 Protein [Mass/Vol] 7.3 g/dL 6.4-8.9 [facility] RBC Auto (Bld) [#/Vol]Ordere d By: Constantine Perdomo on 03-05-2023 RBC (Bld) [#/Vol] 3.98 10*6/uL 3.60-5.00 [facility] Serum or plasma albumin/glob ulin mass ratioOrdered By: Constantine Perdomo on 03-05-2023 Albumin/Globulin [Mass ratio] 0.9 {ratio} [facility] Serum or plasma anion gap de terminationOrdered By: Constantine Perdomo on 03-05-2023 Anion gap [Moles/Vol] 17.4 mmol/L 6.0-15.0 [facility] Sodium [Moles/volume] in Ser um or PlasmaOrdered By: Constantine Perdomo on 03-05-2023 Sodium [Moles/Vol] 133 mmol/L 136-145 [facility] Troponin I High Sensitivityo n 03-05-2023 Troponin I High Sensitivity 21.4 pg/mL High 0.0-15.0 [facility] Comment on above: Result Comment: PERF ORMED BY:[facility] [place], [place] [phone] MEDICAL DIRECTORRAMEZ LARSON M.D. Performed By: #### C MP, CUBLD, LACTIC, BNP, HS TROP, CBC ####[facility] [place] [address] [facility] Troponin I.cardiac [Mass/vol ume] in Serum or Plasma by Detection limit <= 0.01 ng/Ordered By: Constantine Perdomo on 03-05-2023 Troponin I.cardiac DL <= 0.01 ng/mL [Mass/Vol] 21.4 pg/mL 0.0-15.0 [facility] Urea nitrogen [Mass/volume] in Serum or PlasmaOrdered By: Constantine Perdomo on 03-05-2023 Urea nitrogen [Mass/Vol] 15 mg/dL 7-25 [facility] WBC Auto (Bld) [#/Vol]Ordere d By: Constantine Perdomo on 03-05-2023 WBC (Bld) [#/Vol] 8.1 10*3/uL 3.8-11.6 [facility] XR chest 1V portableon 03-05 XR chest 1V portable [facility] Consent for Procedure/Surger yon 03-04-2023 Consent for Procedure/Surgery [id number]#1.00TIF F [facility] Consent for Treatmenton 02-11 Consent for Treatment [id number]#1.00TIF F [facility] Multi-Wound Charton 03-04-19 Multi-Wound Chart [id number] [facility] [id number]#1.00TI FF [facility] Nursing Assessment - Woundon 03-04-2023 Nursing Assessment - Wound [id number]#1.00TI FF [facility] Nursing Note - Woundon 03-04 Nursing Note - Wound [id number]#1.00TI FF [facility] Physician Orderon 03-04-2023 Physician Order [id number] [id number]#1.00TI FF [facility] Procedure - Woundon 03-04-19 Procedure - Wound [id number] [facility] [id number]#1.00TI FF [facility] Progress Note - Woundon 02-11 Progress Note - Wound [id number]#1.00TI FF [facility] Nursing Note - Woundon 02-26 Nursing Note - Wound [id number]#2.00TI FF [facility] Consent for Treatmenton 02-10 Consent for Treatment [id number]#1.00TIF F [facility] Consent to Photographon 02-10 Consent to Photograph [id number]#1.00TI FF [facility] Correspondence - [place]oundon Correspondence - Wound [id number]#1.00TI FF [facility] Correspondence - Wound [id number]#1.00TI FF [facility] Multi-Wound Charton 02-25-19 Multi-Wound Chart [id number] [id number]#1.00TI FF [facility] Nursing Assessment - Woundon 02-25-2023 Nursing Assessment - Wound [id number]#2.00TI FF [facility] Physician Orderon 02-25-2023 Physician Order [id number] [id number]#1.00TI FF [facility] Procedure - Woundon 02-25-19 Procedure - Wound [id number] [id number]#1.00TI FF [facility] Progress Note - Woundon 02-10 Progress Note - Wound [id number]#1.00TI FF [facility] Telemedicineon 02-25-2023 Telemedicine [id number] Wilbert Wilson 1945 F Date Provider Department [place] 02/25/2023 Dieter-NADEEM SANCHEZ [facility] No family history on file Level of Service:89698 [place] PHYS/QHP TELEPHONE EVALUATION 11-20 MIN Normal [facility] BASIC METABOLIC PANELon 12-2 Anion gap [Moles/Vol] 12 mmol/L Normal 7-20 [facility] Comment on above: Performed By: #### L [id number] #### [facility] ([facility]) [address] [place] [address] Calcium [Mass/Vol] 9.9 mg/dL Normal 8.6-10.3 [facility] Comment on above: Performed By: #### L [id number] #### [facility] (BEAKER) [address] [place] [address] Chloride [Moles/Vol] 97 mmol/L Low 98-107 [facility] Comment on above: Performed By: #### L [id number] #### [facility] (BEAKER) [address] [place] [address] CO2 [Moles/Vol] 29 mmol/L Normal 21-31 [facility] Comment on above: Performed By: #### L [id number] #### [facility] (BEAKER) [address] [place] [address] Creatinine [Mass/Vol] 3.02 mg/dL High 0.60-1.20 [facility] Comment on above: Performed By: #### L [id number] #### [facility] (BEAKER) [address] [place] [address] GLOMERULAR FILTRATION RATE ML/MIN/1.73 SQ M.PREDICTED 15.6 mL/min/1.73m*2 Low >60.0 [facility] Comment on above: Result Comment: The [facility]???s estimated glomerular filtration rate (eGFR) will no [...] individuals. Performed By: #### L [id number] #### [facility] ([facility]) [address] [place] [address] Glucose [Mass/Vol] 158 mg/dL High 70-100 [facility] Comment on above: Performed By: #### L [id number] #### [facility] ([facility]) [address] [place] [address] Potassium [Moles/Vol] 3.8 mmol/L Normal 3.5-5.1 [facility] Comment on above: Performed By: #### L [id number] #### [facility] ([facility]) [address] [place] [address] Sodium [Moles/Vol] 134 mmol/L Low 136-145 [facility] Comment on above: Performed By: #### L [id number] #### [facility] ([facility]) [address] [place] [address] Urea nitrogen [Mass/Vol] 19 mg/dL Normal 7-25 [facility] Comment on above: Performed By: #### L [id number] #### [facility] ([facility]) [address] [place] [address] UREA NITROGEN/CREATININE (MASS RATIO) IN SER/PLAS 6.3 Normal [facility] Comment on above: Performed By: #### L [id number] #### [facility] ([facility]) [address] [place] [address] CBCon 02-01-2023 Erythrocyte distribution width (RBC) [Ratio] 17.9 % High 11.5-15.0 [facility] Comment on above: Performed By: #### L [id number] ####[facility] ([facility])[address] [place] [address] ERYTHROCYTE MEAN CORPUSCULAR HEMOGLOBIN CONCENTRATION (G/DL) BY AUTOMATED 29.4 g/dL Low 32.0-35.0 [facility] Comment on above: Performed By: #### L [id number] ####[facility] (BEAKER)[address] [place] [address] Hematocrit (Bld) [Volume fraction] 35.4 % Low 36.0-48.0 [facility] Comment on above: Performed By: #### L [id number] ####[facility] (BEAKER)[address] [place] [address] Hemoglobin (Bld) [Mass/Vol] 10.4 g/dL Low 12.0-15.0 [facility] Comment on above: Performed By: #### L [id number] ####[facility] (BEAKER)[address] [address] MCH (RBC) [Entitic mass] 27.5 pg Normal 27.0-33.0 [facility] Comment on above: Performed By: #### L [id number] ####[facility] (BEAKER)[address] [place], [place] [address] MCV (RBC) [Entitic vol] 93.7 fL Normal 82.0-98.0 [facility] Comment on above: Performed By: #### L [id number] ####[facility] (BEAKER)[address] [place] [address] PLATELETS (10*3/UL) IN BLOOD AUTOMATED COUNT 326 10*3/uL Normal 150-400 [facility] Comment on above: Performed By: #### L [id number] ####[facility] (BEAKER)[address] [place], [place] [address] RBC (Bld) [#/Vol] 3.78 10*6/uL Low 3.80-5.00 [facility] Comment on above: Performed By: #### L [id number] ####[facility] (BEAKER)[address] [place] [address] WBC (Bld) [#/Vol] 8.14 10*3/uL Normal 4.00-10.60 [facility] Comment on above: Performed By: #### L [id number] ####[facility] (PATTY)[address] [address] POCT GLUCOSE METER UNSOLICIT ED RESULTSon 02-01-2023 Glucose [Mass/Vol] 150 mg/dL High 70-105 [facility] Comment on above: Order Comment: Waive d Testing in the ED is performed under the ED CLIA certificate #[id number]. Result Comment: [email or web address] Performed By: #### L [id number] #### [facility] ([facility]) [address] [place] [address] 30on 01-31-2023 30 The patient is Moderately Stable - Low risk of patient condition declining or worsening The patient's goals for the shift include comfort The clinical goals for the shift include stable vitals Normal [facility] 30 The patient is Moderately Stable - Low risk of patient condition declining or worsening The patient's goals for the shift include comfort The clinical goals for the shift include stable VS Problem: Pain - Adult Goal: Verbalizes/displays adequate comfort level or baseline comfort level Outcome: Progressing Flowsheets (Taken 01/31/2023 0800) Verbalizes/displays adequate comfort level or baseline [...] from fall injury Outcome: Progressing Flowsheets (Taken 01/31/2023 0800) Free from fall injury: Assess patient frequently for physical needs Identify cognitive and physical deficits and behaviors that affect risk of falls [place] fall precautions as indicated by assessment Educate patient/family on patient safety, including physical limitations Instruct patient to call for assistance with activity based on assessment Modify environment to reduce risk of injury Consider OT/PT consult to assist with strengthening/mobility Problem: Discharge Planning Goal: Discharge to home or other facility with appropriate resources Outcome: Progressing Flowsheets (Taken 01/31/2023 0900) Discharge to home or other facility with [...] cognitive ability or social support system Normal [facility] BASIC METABOLIC PANELon 12-2 Anion gap [Moles/Vol] 14 mmol/L Normal 7-20 [facility] Comment on above: Performed By: #### L [id number] #### [facility] (BEAKER) [address] [address] Calcium [Mass/Vol] 10.2 mg/dL Normal 8.6-10.3 [facility] Comment on above: Performed By: #### L [id number] #### [facility] (BEAKER) [address] [address] Chloride [Moles/Vol] 93 mmol/L Low 98-107 [facility] Comment on above: Performed By: #### L [id number] #### [facility] (BEAKER) [address] [place] [address] CO2 [Moles/Vol] 27 mmol/L Normal 21-31 [facility] Comment on above: Performed By: #### L [id number] #### [facility] (BEAKER) [address] [address] Creatinine [Mass/Vol] 4.25 mg/dL High 0.60-1.20 [facility] Comment on above: Performed By: #### L [id number] #### [facility] (BEAKER) [address] [address] GLOMERULAR FILTRATION RATE ML/MIN/1.73 SQ M.PREDICTED 10.4 mL/min/1.73m*2 Low >60.0 [facility] Comment on above: Result Comment: The [facility]???s estimated glomerular filtration rate (eGFR) will no [...] individuals. Performed By: #### L [id number] #### [facility] ([place] [facility] [address] [place] [address] Glucose [Mass/Vol] 151 mg/dL High 70-100 [facility] Comment on above: Performed By: #### L [id number] #### [facility] ([facility]) [address] [place] [address] Potassium [Moles/Vol] 4.1 mmol/L Normal 3.5-5.1 [facility] Comment on above: Performed By: #### L [id number] #### [facility] ([facility]) [address] [address] Sodium [Moles/Vol] 130 mmol/L Low 136-145 [facility] Comment on above: Performed By: #### L [id number] #### [facility] ([facility]) [address] [place] [address] Urea nitrogen [Mass/Vol] 39 mg/dL High 7-25 [facility] Comment on above: Performed By: #### L [id number] #### [facility] ([facility]) [address] [place] [address] UREA NITROGEN/CREATININE (MASS RATIO) IN SER/PLAS 9.2 Normal [facility] Comment on above: Performed By: #### L [id number] #### [facility] ([facility]) [address] [address] CBCon 01-31-2023 Erythrocyte distribution width (RBC) [Ratio] 17.7 % High 11.5-15.0 [facility] Comment on above: Performed By: #### L [id number] #### [facility] ([facility]) [address] [address] ERYTHROCYTE MEAN CORPUSCULAR HEMOGLOBIN CONCENTRATION (G/DL) BY AUTOMATED 29.7 g/dL Low 32.0-35.0 [facility] Comment on above: Performed By: #### L [id number] #### [facility] ([facility]) [address] [address] Hematocrit (Bld) [Volume fraction] 34.0 % Low 36.0-48.0 [facility] Comment on above: Performed By: #### L [id number] #### [facility] ([facility]) [address] [address] Hemoglobin (Bld) [Mass/Vol] 10.1 g/dL Low 12.0-15.0 [facility] Comment on above: Performed By: #### L [id number] #### [facility] ([facility]) [address] [place] [address] MCH (RBC) [Entitic mass] 27.4 pg Normal 27.0-33.0 [facility] Comment on above: Performed By: #### L [id number] #### [facility] ([facility]) [address] [place] [address] MCV (RBC) [Entitic vol] 92.4 fL Normal 82.0-98.0 [facility] Comment on above: Performed By: #### L [id number] #### [facility] ([facility]) [address] [address] PLATELETS (10*3/UL) IN BLOOD AUTOMATED COUNT 339 10*3/uL Normal 150-400 [facility] Comment on above: Performed By: #### L [id number] #### [facility] ([facility]) [address] [place] [address] RBC (Bld) [#/Vol] 3.68 10*6/uL Low 3.80-5.00 [facility] Comment on above: Performed By: #### L [id number] #### [facility] ([facility]) [address] [place] [address] WBC (Bld) [#/Vol] 9.44 10*3/uL Normal 4.00-10.60 [facility] Comment on above: Performed By: #### L [id number] #### [facility] ([facility]) [address] [place] [address] MAGNESIUMon 01-31-2023 Magnesium [Mass/Vol] 2.3 mg/dL Normal 1.9-2.7 [facility] Comment on above: Performed By: #### L [id number] ####[facility] ([facility])[address] [place] [address] PHOSPHORUSon 01-31-2023 Magnesium [Mass/Vol] 4.4 mg/dL Normal 2.5-5.0 [facility] Comment on above: Performed By: #### L [id number] ####[facility] ([facility])[address] [place] [address] POCT GLUCOSE METER UNSOLICIT ED RESULTSon 01-31-2023 Glucose [Mass/Vol] 278 mg/dL High 70-105 [facility] Comment on above: Order Comment: Waive d Testing in the ED is performed under the ED CLIA certificate #[id number]. Result Comment: [email or web address] Performed By: #### L [id number] ####[facility] ([facility])[address] [address] Glucose [Mass/Vol] 218 mg/dL High 70-105 [facility] Comment on above: Order Comment: Waive d Testing in the ED is performed under the ED CLIA certificate #[id number]. Result Comment: [email or web address] Performed By: #### L [id number] ####[facility] ([facility])[address] [place] [address] Glucose [Mass/Vol] 169 mg/dL High 70-105 [facility] Comment on above: Order Comment: Waive d Testing in the ED is performed under the ED CLIA certificate #[id number]. Result Comment: [email or web address] [email or web address] Performed By: #### L [id number] #### [facility] ([facility]) [address] [address] 30on 01-30-2023 30 The patient is Moderately Stable - Low risk of patient condition declining or worsening The patient's goals for the shift include comfort The clinical goals for the shift include stable vitals Normal [facility] 30 The patient is Moderately Stable - [...] and behaviors that affect risk of falls [place] fall precautions as indicated by assessment Educate [...] goals for the shift include VSS Normal [facility] 30 Daily Case Managemen t Update Multidisciplinary rounds have been completed. Barriers to Discharge: Pending clinical course and improvement in clinical condition. Patient presented to the ER w/VT >3 min discovered on holter monitor. Cardiology consulted and ECHO performed; pending results. Patient current with [facility] at [facility]. Plans to return home with daughter with home health care. Diet: Dietary Orders (From admission, onward) Start Ordered 01/30/23 0725 Diet NPO Diet effective now Comments: Sips [...] Orders (From admission, onward) Start Ordered 01/29/23 230 Inpatient consult to Cardiology Once Specialty: Cardiology Provider: (Not yet assigned) Question Answer Comment Reason for Consult? Nonsustained V. tach, known patient [employer] CARDIOLOGY TEAM Level of Consultation Consultation and Management Did you contact the training consultant? No 01/29/23230201/29/23 230 Inpatient consult to Nephrology Once Specialty: Nephrology Provider: (Not yet assigned) Question Answer Comment [employer] NEPHROLOGY TEAM Reason for Consult? ESRD HD MWF Level of Consultation Consultation and Management Did you contact the training consultant? No 01/29/232302 Ancillary Consults (From admission, onward) Start Ordered 01/30/23 0138 Inpatient consult to Wound/Ostomy Nurse Once Comments: [...] sacrum, multiple wounds to BLE r/t falls 01/30/23 0137 Normal [facility] 30 The patient is Moderately Stable - [...] optimal ventilation and oxygenation Outcome: Progressing Normal [facility] 30 The patient is Moderately Stable - Low risk of patient condition declining or worsening The patient's goals for the shift include comfort The clinical goals for the shift include VSS Normal [facility] BASIC METABOLIC PANELon 12-2 Anion gap [Moles/Vol] 13 mmol/L Normal 7-20 [facility] Comment on above: Performed By: #### L [id number] #### [facility] ([facility]) [address] [address] Calcium [Mass/Vol] 9.8 mg/dL Normal 8.6-10.3 [facility] Comment on above: Performed By: #### L [id number] #### [facility] ([facility]) [address] [address] Chloride [Moles/Vol] 94 mmol/L Low 98-107 [facility] Comment on above: Performed By: #### L [id number] #### [facility] ([facility]) [address] [address] CO2 [Moles/Vol] 28 mmol/L Normal 21-31 [facility] Comment on above: Performed By: #### L [id number] #### [facility] ([facility]) [address] [address] Creatinine [Mass/Vol] 3.15 mg/dL High 0.60-1.20 [facility] Comment on above: Performed By: #### L [id number] #### [facility] ([facility]) [address] [address] GLOMERULAR FILTRATION RATE ML/MIN/1.73 SQ M.PREDICTED 14.8 mL/min/1.73m*2 Low >60.0 [facility] Comment on above: Result Comment: The [facility]???s estimated glomerular filtration rate (eGFR) will no [...] individuals. Performed By: #### L [id number] #### [facility] ([facility]) [address] [place] [address] Glucose [Mass/Vol] 177 mg/dL High 70-100 [facility] Comment on above: Performed By: #### L [id number] #### [facility] ([facility]) [address] [place] [address] Potassium [Moles/Vol] 3.5 mmol/L Normal 3.5-5.1 [facility] Comment on above: Performed By: #### L [id number] #### [facility] ([facility]) [address] [place] [address] Sodium [Moles/Vol] 131 mmol/L Low 136-145 [facility] Comment on above: Performed By: #### L [id number] #### [facility] ([facility]) [address] [place] [address] Urea nitrogen [Mass/Vol] 29 mg/dL High 7-25 [facility] Comment on above: Performed By: #### L [id number] #### [facility] ([facility]) [address] [place] [address] UREA NITROGEN/CREATININE (MASS RATIO) IN SER/PLAS 9.2 Normal [facility] Comment on above: Performed By: #### L [id number] #### [facility] ([facility]) [address] [place] [address] CBCon 01-30-2023 Erythrocyte distribution width (RBC) [Ratio] 17.6 % High 11.5-15.0 [facility] Comment on above: Performed By: #### L [id number] #### [facility] [address] [place] [address] ERYTHROCYTE MEAN CORPUSCULAR HEMOGLOBIN CONCENTRATION (G/DL) BY AUTOMATED 29.2 g/dL Low 32.0-35.0 [facility] Comment on above: Performed By: #### L [id number] #### [facility] [address] [address] Hematocrit (Bld) [Volume fraction] 32.5 % Low 36.0-48.0 [facility] Comment on above: Performed By: #### L [id number] #### [facility] ([facility]) [address] [address] Hemoglobin (Bld) [Mass/Vol] 9.5 g/dL Low 12.0-15.0 [facility] Comment on above: Performed By: #### L [id number] #### [facility] ([facility]) [address] [place] [address] MCH (RBC) [Entitic mass] 27.2 pg Normal 27.0-33.0 [facility] Comment on above: Performed By: #### L [id number] #### [facility] ([facility]) [address] [place] [address] MCV (RBC) [Entitic vol] 93.1 fL Normal 82.0-98.0 [facility] Comment on above: Performed By: #### L [id number] #### [facility] ([facility]) [address] [address] PLATELETS (10*3/UL) IN BLOOD AUTOMATED COUNT 343 10*3/uL Normal 150-400 [facility] Comment on above: Performed By: #### L [id number] #### [facility] [address] [address] RBC (Bld) [#/Vol] 3.49 10*6/uL Low 3.80-5.00 [facility] Comment on above: Performed By: #### L [id number] #### [facility] [address] [place] [address] WBC (Bld) [#/Vol] 8.30 10*3/uL Normal 4.00-10.60 [facility] Comment on above: Performed By: #### L [id number] #### [facility] ([facility]) [address] [address] CONSULTon 01-30-2023 CONSULT [place] Electrophysiology Consult Note Reason for visit: VT [...] No CP/ SOB associated with that episode. [facility] records during syncope eval and at that time she also had episodes of nonsustained V. tach. Upon workup in the ER, patient's magnesium and potassium were found to be low and were replaced. She was then seen by Ryan mornoe a 30d event monitor revealed multiple episodes [...] disease) 09/23/2021 COPD (chronic obstructive pulmonary disease) ([facility]) 09/23/2021 Diastolic heart failure ([facility]) 09/23/2021 Dyspnea 09/23/2021 Edema 09/23/2021 Essential hypertension 09/23/2021 Hyperlipemia 09/23/2021 Kidney disease 09/23/2021 Orthopnea 09/23/2021 Primary malignant neoplasm ([facility]) 09/23/2021 Sleep apnea Type 1 diabetes ([facility]) 09/23/2021 PSH: Past Surgical History: Procedure Laterality [...] 0 min Stress: Stress Concern Present (01/29/2023) [place] [employer] - Occupational Stress Questionnaire Feeling of Stress : To some extent Social Connections: Socially Isolated (01/29/2023) Social Connection and Isolation Panel [NHANES] Frequency of Communication with Friends and Family: More than three times a week Frequency of Social Gatherings with Friends and Family: Once a week Attends Yazidi Services: Never Active Member of Clubs or [...] cholecalciferol (Vi (more content not included)... 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 tach on the monitor. Patient only complains of increased shortness of breath but no chest pain. She has lightheadedness. No recent falls. No nausea or vomiting. Patient states that she had the monitor in order to be evaluated for the need of pacemaker. Upon review of her records, patient was hospitalized at [facility] for syncope and at that time she [...] No co (more content not included)... Normal [facility] CONSULT ---- -------- Attestation with edits by Cheli Lutz MD at 01/30/2023 2:16 PM I personally saw and examined the patient on the same date of service as resident/fellow Dr Ramirez. I discussed the findings and therapeutic plan with the resident/fellow Dr Ramirez. I agree with the documentation, except for any edits/updates below. Teaching Physician's Revisions: Cheli Lutz MD, MPH, [facility], [facility], [facility] Interventional Cardiology Pager Email: [email or web address] du -------- Cardiology Consult Note Reason for Consult: SVT HPI: Cinthya Wilson is a 77 y.o. female with past medical history of CAD s/p PCI to LAD 2015, HFpEF 50-55%, aortic valve stenosis, ESRD HD MWF, COPD 3L NC, HTN, orthostatic hypotension who presents from cardiology clinic due to runs of NSVT seen on monitor. Of note, she was hospitalized at [facility] after syncopal episode last month. Note NSVT and bradycardia at her visit there. She was discontinued on her home beta madhu and event monitor at that point, started on amiodarone. 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 Suggested to discontinue amiodarone given concurrent lung disease and kidney failure. On 01/29, event monitor picked up VT for greater than 3 minute stretch. Patient was completely asymptomatic at that time, reported to [facility] for evaluation. On examination, she is [...] disease) (09/23/2021), COPD (chronic obstructive pulmonary disease) ([facility]) (09/23/2021), Diastolic heart failure ([facility]) (09/23/2021), Dyspnea (09/23/2021), Edema (09/23/2021), Essential hypertension (09/23/2021), Hyperlipemia (09/23/2021), Kidney disease (09/23/2021), Orthopnea (09/23/2021), Primary malignant neoplasm ([facility]) (09/23/2021), Sleep apnea, and Type 1 diabetes ([facility]) (09/23/2021). Surgical History She has a past [...] 40 mg by mouth in the morning. ermuuxnpqnc-twzqlrpxo-gu lanter (Trelegy Ellipta) 200-62.5-25 mcg blister with device Inhale. furosemide (Lasix) 40 mg tablet Take 1.5 tablets by mouth in the morning and at bedtime. gabapentin (Neurontin) 100 mg capsule Take 100 mg by mouth twice a day. HumaLOG KwikPen Insulin 100 unit/mL injection HYDROcodone-acetaminophe n (Fenton) 7.5-325 mg tablet Take 1 tablet by [...] 01/29/2023 v (more content not included)... Normal [facility] HEPATITIS B SURFACE ANTIGENo n 01-30-2023 HEPATITIS B VIRUS SURFACE AG PRESENCE IN SERUM Non-Reactive Normal Nonreactive [facility] Comment on above: Performed By: #### L [id number] #### [facility] ([facility]) [address] [place] [address] HEPATITIS C ANTIBODYon 01-30 HEPATITIS C VIRUS AB PRESENCE IN SERUM Non-Reactive Normal Nonreactive [facility] Comment on above: Performed By: #### L [id number] ####[facility] ([facility])[address] [place] [address] HPon 01-30-2023 H&P reviewed. The patient was examined and there are no changes to the H&P. [facility] HP ---- -------- Attestation signed by Cheil Lutz MD at 01/30/2023 2:16 PM I personally saw and examined the patient on the same date of service as resident/fellow Dr Ramirez. I discussed the findings and therapeutic plan with the resident/fellow Dr Ramirez. I agree with the documentation, except for any edits/updates below. Teaching Physician's Revisions: Cheli Lutz MD, MPH, [facility], [facility], [facility] Interventional Cardiology Pager Email: [email or web address] -------- Cardiology Consult Note Reason for Consult: SVT HPI: Cinthya Wilson is a 77 y.o. female with past medical history of CAD s/p PCI to 2015, HFpEF 50-55%, aortic valve stenosis, ESRD HD MWF, COPD 3L NC, HTN, orthostatic hypotension who presents from cardiology clinic due to runs of NSVT seen on monitor. Of note, she was hospitalized at [facility] after syncopal episode last month. Note NSVT and bradycardia at her visit there. She was discontinued on her home beta madhu and event monitor at that point, started on amiodarone. 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 Suggested to discontinue amiodarone given concurrent lung disease and kidney failure. On 01/29, event monitor picked up VT for greater than 3 minute stretch. Patient was completely asymptomatic at that time, reported to [facility] for evaluation. On examination, she is [...] disease) (09/23/2021), COPD (chronic obstructive pulmonary disease) ([facility]) (09/23/2021), Diastolic heart failure ([facility]) (09/23/2021), Dyspnea (09/23/2021), Edema (09/23/2021), Essential hypertension (09/23/2021), Hyperlipemia (09/23/2021), Kidney disease (09/23/2021), Orthopnea (09/23/2021), Primary malignant neoplasm ([facility]) (09/23/2021), Sleep apnea, and Type 1 diabetes ([facility]) (09/23/2021). Surgical History She has a past [...] 40 mg by mouth in the morning. dvlevbxlcyx-hrsqxiwqx-ik lanter (Trelegy Ellipta) 200-62.5-25 mcg blister with device Inhale. furosemide (Lasix) 40 mg tablet Take 1.5 tablets by mouth in the morning and at bedtime. gabapentin (Neurontin) 100 mg capsule Take 100 mg by mouth twice a day. HumaLOG KwikPen Insulin 100 unit/mL injection HYDROcodone-acetaminophe n (Fenton) 7.5-325 mg tablet Take 1 tablet by [...] morning. 01/29/2023 valsa (more content not included)... [facility] Letter (Out)on 01-30-2023 Letter (Out) [id number] Wilbert Wilson 1945 F Date Provider Department Center 01/30/2023 [id number], GENERIC PRO*INIT None No family history on file [facility] MAGNESIUMon 01-30-2023 Magnesium [Mass/Vol] 2.4 mg/dL Normal 1.9-2.7 [facility] Comment on above: Performed By: #### L [id number] ####[facility] ([facility])[address] [place] [address] NURSNOTEon 01-30-2023 NURSNOTE Patient reports gabapentin makes her tongue swell and increases confusion. States she now takes Lyrica 25mg once daily in the morning. Home med list updated to reflect this, gabapentin added to allergy list. Hospitalist notified of the above, awaiting clarification of orders. Safety maintained. [facility] NURSNOTE Patient reports abrasions to shins have been present since a fall that occurred in October. Heels and cracks on soles of feet are from my feet just splitting open. Patient reports pain to BLE, especially open areas almost constantly at 8-10/10 pain which impedes her ability to walk and complete ADLs independently. PRN Fenton administered to complete wound care. Orders obtained for wound care consult. Pain issues relayed to hospitalist team. Safety maintained. Per patient opticel ag with silver to front of legs, silvedene cream to heels/bottom of feet, lac-hydrin lotion to BLE as per podiatry orders. Normal [facility] PHOSPHORUSon 01-30-2023 Magnesium [Mass/Vol] 3.3 mg/dL Normal 2.5-5.0 [facility] Comment on above: Performed By: #### L [id number] #### [facility] ([employer]) [address] [place] [address] POCT GLUCOSE METER UNSOLICIT ED RESULTSon 01-30-2023 Glucose [Mass/Vol] 140 mg/dL High 70-105 [facility] Comment on above: Order Comment: Waive d Testing in the ED is performed under the ED CLIA certificate #[id number]. Result Comment: [email or web address] Performed By: #### L [id number] ####[facility] ([employer] [facility] [place] [address] Glucose [Mass/Vol] 154 mg/dL High 70-105 [facility] Comment on above: Order Comment: Waive d Testing in the ED is performed under the ED CLIA certificate #[id number]. Result Comment: [email or web address] [email or web address] Performed By: #### L [id number] #### [facility] ([employer]) [address] [place] [address] Glucose [Mass/Vol] 139 mg/dL High 70-105 [facility] Comment on above: Order Comment: Waive d Testing in the ED is performed under the ED CLIA certificate #[id number]. Result Comment: eryn [email or web address] Performed By: #### L [id number] #### [facility] ([employer] [address] [place] [address] Glucose [Mass/Vol] 244 mg/dL High 70-105 [facility] Comment on above: Order Comment: Waive d Testing in the ED is performed under the ED CLIA certificate #[id number]. Result Comment: [email or web address] Critical Value Noted Performed By: #### L [id number] #### [facility] ([facility]) [address] [place] [address] APTTon 01-29-2023 ACTIVATED PARTIAL THROMBOPLASTIN TIME IN PPP BY COAGULATION ASSAY 39.1 Seconds High 25.0-35.0 [facility] Comment on above: Result Comment: Clin ical significance of the APTT is questionable in the presence of heparin. Performed By: #### L [id number] #### [facility] ([facility]) [address] [place] [address] B-TYPE NATRIURETIC PEPTIDEon 01-29-2023 Natriuretic peptide B (Bld) [Mass/Vol] 406 pg/mL High 0-100 [facility] Comment on above: Performed By: #### L [id number] #### [facility] ([facility]) [address] [place] [address] BASIC METABOLIC PANELon 12-2 Anion gap [Moles/Vol] 15 mmol/L Normal 7-20 [facility] Comment on above: Performed By: #### L [id number] #### [facility] ([facility]) [address] [address] Calcium [Mass/Vol] 9.8 mg/dL Normal 8.6-10.3 [facility] Comment on above: Performed By: #### L [id number] #### [facility] ([facility]) [address] [address] Chloride [Moles/Vol] 92 mmol/L Low 98-107 [facility] Comment on above: Performed By: #### L [id number] #### [facility] ([facility]) [address] [address] CO2 [Moles/Vol] 29 mmol/L Normal 21-31 [facility] Comment on above: Performed By: #### L [id number] #### [facility] ([facility]) [address] [address] Creatinine [Mass/Vol] 2.60 mg/dL High 0.60-1.20 [facility] Comment on above: Performed By: #### L [id number] #### [facility] ([facility]) [address] [address] GLOMERULAR FILTRATION RATE ML/MIN/1.73 SQ M.PREDICTED 18.7 mL/min/1.73m*2 Low >60.0 [facility] Comment on above: Result Comment: The [facility]???s estimated glomerular filtration rate (eGFR) will no [...] individuals. Performed By: #### L [id number] #### [facility] ([facility]) [address] [place] [address] Glucose [Mass/Vol] 210 mg/dL High 70-100 [facility] Comment on above: Performed By: #### L [id number] #### [facility] ([facility]) [address] [place] [address] Potassium [Moles/Vol] 3.2 mmol/L Low 3.5-5.1 [facility] Comment on above: Performed By: #### L [id number] #### [facility] ([facility]) [address] [place] [address] Sodium [Moles/Vol] 133 mmol/L Low 136-145 [facility] Comment on above: Performed By: #### L [id number] #### [facility] ([facility]) [address] [place] [address] Urea nitrogen [Mass/Vol] 23 mg/dL Normal 7-25 [facility] Comment on above: Performed By: #### L [id number] #### [facility] ([facility]) [address] [place] [address] UREA NITROGEN/CREATININE (MASS RATIO) IN SER/PLAS 8.8 Normal [facility] Comment on above: Performed By: #### L [id number] #### [facility] ([facility]) [address] [place] [address] CBC WITH AUTO DIFFERENTIALon 01-29-2023 Basophils (Bld) [#/Vol] 0.06 10*3/uL Normal 0.00-0.20 [facility] Comment on above: Performed By: #### L [id number] #### [facility] ([facility]) [address] [place] [address] Basophils/100 WBC (Bld) 0.8 % Normal 0.0-1.0 [facility] Comment on above: Performed By: #### L [id number] #### [facility] ([facility]) [address] [place] [address] Eosinophils (Bld) [#/Vol] 0.23 10*3/uL Normal 0.00-0.50 [facility] Comment on above: Performed By: #### L [id number] #### [facility] ([facility]) [address] [place] [address] Eosinophils/100 WBC (Bld) 3.0 % Normal 0.0-6.0 [facility] Comment on above: Performed By: #### L [id number] #### [facility] ([facility]) [address] [place] [address] Erythrocyte distribution width (RBC) [Ratio] 17.6 % High 11.5-15.0 [facility] Comment on above: Performed By: #### L [id number] #### [facility] [address] [place] [address] ERYTHROCYTE MEAN CORPUSCULAR HEMOGLOBIN CONCENTRATION (G/DL) BY AUTOMATED 29.5 g/dL Low 32.0-35.0 [facility] Comment on above: Performed By: #### L [id number] #### [facility] ([facility]) [address] [place] [address] Hematocrit (Bld) [Volume fraction] 31.2 % Low 36.0-48.0 [facility] Comment on above: Performed By: #### L [id number] #### [facility] ([facility]) [address] [place] [address] Hemoglobin (Bld) [Mass/Vol] 9.2 g/dL Low 12.0-15.0 [facility] Comment on above: Performed By: #### L [id number] #### [facility] ([facility]) [address] [place] [address] Immature granulocytes (Bld) [#/Vol] 0.09 10*3/uL Normal 0.00-0.20 [facility] Comment on above: Performed By: #### L [id number] #### [facility] ([facility]) [address] [place] [address] Immature granulocytes/100 WBC (Bld) 1.2 % High 0.0-1.0 [facility] Comment on above: Performed By: #### L [id number] #### [facility] ([facility]) [address] [address] Lymphocytes (Bld) [#/Vol] 1.24 10*3/uL Normal 1.20-4.00 [facility] Comment on above: Performed By: #### L [id number] #### [facility] ([facility]) [address] [place] [address] Lymphocytes/100 WBC (Bld) 16.1 % Low 20.0-45.0 [facility] Comment on above: Performed By: #### L [id number] #### [facility] [address] [place] [address] MCH (RBC) [Entitic mass] 26.9 pg Low 27.0-33.0 [facility] Comment on above: Performed By: #### L [id number] #### [facility] [address] [place] [address] MCV (RBC) [Entitic vol] 91.2 fL Normal 82.0-98.0 [facility] Comment on above: Performed By: #### L [id number] #### [facility] ([facility]) [address] [place] [address] Monocytes (Bld) [#/Vol] 0.97 10*3/uL Normal 0.10-1.00 [facility] Comment on above: Performed By: #### L [id number] #### [facility] ([facility]) [address] [place] [address] Monocytes/100 WBC (Bld) 12.6 % High 5.0-12.0 [facility] Comment on above: Performed By: #### L [id number] #### [facility] ([facility]) [address] [place] [address] Neutrophils (Bld) [#/Vol] 5.11 10*3/uL Normal 1.60-7.60 [facility] Comment on above: Performed By: #### L [id number] #### [facility] ([facility]) [address] [place] [address] Neutrophils/100 WBC (Bld) 66.3 % Normal 40.0-72.0 [facility] Comment on above: Performed By: #### L [id number] #### [facility] ([facility]) [address] [place] [address] NRBC (PER 100 WBCS) BY AUTOMATED COUNT 0.0 % Normal 0 [facility] Comment on above: Performed By: #### L [id number] #### [facility] [address] [place] [address] PLATELETS (10*3/UL) IN BLOOD AUTOMATED COUNT 324 10*3/uL Normal 150-400 [facility] Comment on above: Performed By: #### L [id number] #### [facility] ([facility]) [address] [place] [address] RBC (Bld) [#/Vol] 3.42 10*6/uL Low 3.80-5.00 [facility] Comment on above: Performed By: #### L [id number] #### [facility] ([facility]) [address] [place] [address] WBC (Bld) [#/Vol] 7.70 10*3/uL Normal 4.00-10.60 [facility] Comment on above: Performed By: #### L [id number] #### [facility] ([facility]) [address] [place] [address] Documentationon 01-29-2023 Documentation [id number] SteveWilbertkar Mc 1945 F Date Provider Department [place] 01/29/2023 RYAN HATHAWAY [facility]. No family history on file Normal [facility] EDPROVon 01-29-2023 EDPROV HPI Chief Complaint Patient presents with Shortness of Breath Pt presents to ED with c/o SOB and 2+ minutes if vtach per the [facility]LE[facility] REP at cardio clinic. Pt is being evaluated for defibrillator. 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 Patient presents for evaluation after being notified that she had an episode of ventricular tachycardia. 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 [place] Coma Scale Score: 15 Patient History Past Medical History: Diagnosis Date CAD (coronary artery disease) 09/23/2021 COPD (chronic obstructive pulmonary disease) ([facility]) 09/23/2021 Diastolic heart failure ([facility]) 09/23/2021 Dyspnea 09/23/2021 Edema 09/23/2021 Essential hypertension 09/23/2021 Hyperlipemia 09/23/2021 Kidney disease 09/23/2021 Orthopnea 09/23/2021 Primary malignant neoplasm ([facility]) 09/23/2021 Sleep apnea Type 1 diabetes ([facility] [place]) 09/23/2021 Past Surgical History: Procedure Laterality Date CARDIAC CATHETERIZATION 12/07/2015 NECK SURGERY 06/03/2014 THORACENTESIS Right No family history on file. Social History Tobacco Use Smoking status: Never Smokeless tobacco: Never Substance Use Topics Alcohol use: Never Drug use: Never Review of Systems Review of Systems Respiratory: Positive for shortness of breath. Neurological: Positive for light-headedness. Physical Exam ED Triage Vitals [01/29/23 191] Temp Heart Rate Resp BP 36.7 ???C [...] Bruner Diagnoses as of 01/29/232245 Ventricular tachycardia ([facility]) Medical Decision Making Risk Risk Details: 2022 Emergency Medicine Coding Guide from [employer] on 01/29/2023 All calculations should be rechecked [...] management/testing w (more content not included)... Normal [facility] MAGNESIUMon 01-29-2023 Magnesium [Mass/Vol] 1.7 mg/dL Low 1.9-2.7 [facility] Comment on above: Performed By: #### L [id number] #### [facility] ([facility]) [address] [address] PROTIME-INRon 01-29-2023 INR IN PPP BY COAGULATION ASSAY 1.08 Normal 0.90-1.10 [facility] Comment on above: Result Comment: ACCC P [...] By: #### L [id number] ####[facility] [facility] [place] [address] PROTHROMBIN TIME (PT) IN PPP BY COAGULATION ASSAY 14.0 Seconds Normal 12.3-14.8 [facility] Comment on above: Performed By: #### L [id number] ####[facility] [employer] [facility] [place] [address] TROPONIN Ion 01-29-2023 Troponin I.cardiac [Mass/Vol] 0.03 ng/mL Normal 0.00-0.04 [facility] Comment on above: Performed By: #### L [id number] #### [facility] [facility] [address] [place] [address] Office Visiton 01-06-2023 Follow-up visit [id number] Wilbert Wilson 1945 F Date Provider Department Center 01/06/2023 RYAN HATHAWAY No family history on file Level of Service:61800 [place] OFFICE/OUTPATIENT ESTABLISHED MOD MDM 30-39 MIN Normal [facility] Alanine aminotransferase [En zymatic activity/volume] in Serum or PlasmaOrdered By: Carlton Mtz on 01-02-2023 ALT [Catalytic activity/Vol] 27 U/L 7-52 [facility] Albumin [Mass/volume] in Ser um or Plasma by Bromocresol green (BCG) dye binding methoOrdered By: Carlton Mtz on 01-02-2023 Albumin BCG dye [Mass/Vol] 3.1 g/dL 3.5-5.7 [facility] Alkaline phosphatase [Enzyma tic activity/volume] in Serum or PlasmaOrdered By: Carlton Mtz on 01-02-2023 ALP [Catalytic activity/Vol] 170 U/L 34-104 [facility] Anisocytosis LM Ql (Bld)Orde red By: Carlton Mtz on 01-02-2023 Anisocytosis Ql (Bld) Slight [facility] Aspartate aminotransferase [ Enzymatic activity/volume] in Serum or PlasmaOrdered By: Carlotn Mtz on 01-02-2023 AST [Catalytic activity/Vol] 18 U/L 13-39 [facility] Basophils Auto (Bld) [#/Vol] Ordered By: Carlton Mtz on 01-02-2023 Basophils (Bld) [#/Vol] 0.0 10*3/uL 0.0-0.2 [facility] Basophils/100 WBC Auto (Bld) Ordered By: Carlton Mtz on 01-02-2023 Basophils/100 WBC (Bld) 0.1 % . [facility] Bilirubin.total [Mass/volume ] in Serum or PlasmaOrdered By: Carlton Mtz on 01-02-2023 Bilirubin [Mass/Vol] 0.3 mg/dL 0.3-1.0 [facility] Calcium [Mass/volume] in Ser um or PlasmaOrdered By: Carlton Mtz on 01-02-2023 Calcium [Mass/Vol] 9.3 mg/dL 8.6-10.3 [facility] Carbon dioxide, total [Moles /volume] in Serum or PlasmaOrdered By: Carlton Mtz on 01-02-2023 CO2 [Moles/Vol] 29.5 mmol/L 21.0-31.0 [facility] Chloride [Moles/volume] in S steffanie or PlasmaOrdered By: Carlton Mtz on 01-02-2023 Chloride [Moles/Vol] 93 mmol/L 98-107 [facility] Comprehensive Metabolic Pane eliseo 01-02-2023 Albumin [Mass/Vol] 3.1 g/dL Low 3.5-5.7 [facility] Comment on above: Performed By: #### C MP, SCAN CBC ####[place] [id number] [place] [id number] [facility] Albumin/Globulin [Mass ratio] 1.0 {ratio} Normal [facility] Comment on above: Performed By: #### C MP, SCAN CBC ####[place] [id number] [facility] ALP [Catalytic activity/Vol] 170 U/L High 34-104 [facility] Comment on above: Performed By: #### C MP, SCAN CBC ####[place] [id number] [facility] ALT [Catalytic activity/Vol] 27 U/L Normal 7-52 [facility] Comment on above: Performed By: #### C MP, SCAN CBC ####[place] [id number] [facility] Anion gap [Moles/Vol] 13.2 mmol/L Normal 6.0-15.0 [facility] Comment on above: Performed By: #### C MP, SCAN CBC ####[place] [id number] [facility] AST [Catalytic activity/Vol] 18 U/L Normal 13-39 [facility] Comment on above: Performed By: #### C MP, SCAN CBC ####[place] [id number] [facility] Bilirubin [Mass/Vol] 0.3 mg/dL Normal 0.3-1.0 [facility] Comment on above: Performed By: #### C MP, SCAN CBC ####[place] [id number] [place] Calcium [Mass/Vol] 9.3 mg/dL Normal 8.6-10.3 [facility] Comment on above: Performed By: #### C MP, SCAN CBC ####[place] [address] [place] [id number] [facility] Chloride [Moles/Vol] 93 mmol/L Low 98-107 [facility] Comment on above: Performed By: #### C MP, SCAN CBC ####[place] [address] [place] [id number] [facility] CO2 [Moles/Vol] 29.5 mmol/L Normal 21.0-31.0 [facility] Comment on above: Performed By: #### C MP, SCAN CBC ####[place] [address] Creatinine [Mass/Vol] 2.93 mg/dL Significan t change up 0.60-1.20 [facility] Comment on above: Performed By: #### C MP, SCAN CBC ####[address] Creatinine Clr Calc Pharmacy 14.33 Normal [facility] Comment on above: Result Comment: PERF ORMED BY:[address] [place], [place] [phone] MEDICAL MAJOR LARSON M.D. Performed By: #### C MP, SCAN CBC ####[place] [id number] [facility] GFR/1.73 sq M.predicted MDRD (S/P/Bld) [Vol rate/Area] 16.172 mL/min/{1.73_m2} Normal [facility] Comment on above: Performed By: #### C MP, SCAN CBC ####[place] [address] [place] [id number] [facility] Globulin (S) [Mass/Vol] 3.2 g/dL [facility] Comment on above: Performed By: #### C MP, SCAN CBC ####[place] [id number] [facility] Glucose [Mass/Vol] 209 mg/dL High 70-100 [facility] Comment on above: Result Comment: [place] Glucose Reference Range is dependent on time and content of last meal. Glucose of more than 200 mg/dL in a nonstressed, ambulatory subject supports the diagnosis of Diabetes Mellitus. ADA recommended reference range Performed By: #### C MP, SCAN CBC ####[facility] [id number] [place] [id number] [facility] Potassium [Moles/Vol] 3.7 mmol/L Normal 3.5-5.[address] [facility] Comment on above: Performed By: #### C MP, SCAN CBC ####[facility] [id number] [place] [address] [facility] Protein [Mass/Vol] 6.3 g/dL Low 6.4-8.9 [facility] Comment on above: Performed By: #### C MP, SCAN CBC ####[facility] [address] [place] [id number] [facility] Sodium [Moles/Vol] 132 mmol/L Low 136-145 [facility] Comment on above: Performed By: #### C MP, SCAN CBC ####[facility] [address] [place] [address] [facility] Urea nitrogen [Mass/Vol] 37 mg/dL High 7-25 [facility] Comment on above: Performed By: #### C MP, SCAN CBC ####[facility] [address] [place] [address] [place] Creatinine [Mass/volume] in Serum or PlasmaOrdered By: Carlton Mtz on 01-02-2023 Creatinine [Mass/Vol] 2.93 mg/dL 0.60-1.[address] [facility] Comment on above: Delta: 4.45 on 01/01 Eosinophils Auto (Bld) [#/Vo l]Ordered By: Carlton Mtz on 01-02-2023 Eosinophils (Bld) [#/Vol] 0.0 10*3/uL 0.0-0.45 [facility] Eosinophils/100 WBC Auto (Bl d)Ordered By: Carlton Mtz on 01-02-2023 Eosinophils/100 WBC (Bld) 0.0 % . [facility] Erythrocyte distribution wid th Auto (RBC) [Ratio]Ordered By: Carlton Mtz on 01-02-2023 Erythrocyte distribution width (RBC) [Ratio] 17.2 % 11.9-15.3 [facility] Globulin Calc (S) [Mass/Vol] Ordered By: Carlton Mtz on 01-02-2023 Globulin (S) [Mass/Vol] 3.2 g/dL [facility] Glucose Glucometer (BldC) [M ass/Vol]Ordered By: Tatiana Loya on 01-02-2023 Glucose [Mass/Vol] 290 mg/dL [facility] Comment on above: Random Glucose Refer ence Range is dependent on time and content of last meal. Glucose of more than 200 mg/dL in a nonstressed, ambulatory subject supports the diagnosis of Diabetes Mellitus. Glucose Poct Glucometerson 03-04-2022 Commemt1 Glu2: Cleaned Meter Normal [facility] Comment on above: Result Comment: PERF ORMED BY:[facility] [place], [place] [phone] MEDICAL DIRECTORRAMEZ LARSON M.D. Performed By: #### G LULS ####Point of Care testing, Glucose [Mass/Vol] 290 mg/dL Normal [facility] Comment on above: Result Comment: [place] Glucose Reference Range is dependent on time and content of last meal. Glucose of more than 200 mg/dL in a nonstressed, ambulatory subject supports the diagnosis of Diabetes Mellitus. Performed By: #### G LULS ####Point of Care testing, Commemt1 Normal [facility] Comment on above: Result Comment: Glu2 : WILL NOTIFY DR/OLIVERERFORMED BY:[facility] [place], [place] [phone] MEDICAL DIRECTORRAMEZ LARSON M.D. Performed By: #### G LULS ####Point of Care testing, Glucose [Mass/Vol] 482 mg/dL Off scale [facility] Comment on above: Result Comment: [place] om Glucose Reference Range is dependent on time and content of last meal. Glucose of more than 200 mg/dL in a nonstressed, ambulatory subject supports the diagnosis of Diabetes Mellitus. Performed By: #### G LULS ####Point of Care testing, Glucose [Mass/volume] in Ser um or PlasmaOrdered By: Carlton Mtz on 01-02-2023 Glucose [Mass/Vol] 209 mg/dL 70-100 [facility] Comment on above: ADA recommended refe rence rangeRandom Glucose Reference Range is dependent on time and content of last meal. Glucose of more than 200 mg/dL in a nonstressed, ambulatory subject supports the diagnosis of Diabetes Mellitus. Hematocrit Auto (Bld) [Volum e fraction]Ordered By: Carlotn Mtz on 01-02-2023 Hematocrit (Bld) [Volume fraction] 30.2 % 34.0-46.4 [facility] Hemoglobin [Mass/volume] in BloodOrdered By: Carlton Mtz on 01-02-2023 Hemoglobin (Bld) [Mass/Vol] 9.5 g/dL 11.8-15.4 [facility] Hypochromia LM Ql (Bld)Order ed By: Carlton Mtz on 01-02-2023 Hypochromia Ql (Bld) Slight [facility] Leukocytes [#/volume] correc tr for nucleated erythrocytes in Blood by Automated counOrdered By: Carlton Mtz on 01-02-2023 WBC corrected for nucl RBC Auto (Bld) [#/Vol] 10.5 10*3/uL 3.8-11.6 [facility] Lymphocytes Auto (Bld) [#/Vo l]Ordered By: Carlton Mtz on 01-02-2023 Lymphocytes (Bld) [#/Vol] 1.0 10*3/uL 1.00-4.8 [facility] Lymphocytes/100 WBC Auto (Bl d)Ordered By: Carlton Mtz on 01-02-2023 Lymphocytes/100 WBC (Bld) 9.7 % . [facility] MCH Auto (RBC) [Entitic mass ]Ordered By: Carlton Mtz on 01-02-2023 MCH (RBC) [Entitic mass] 28.2 pg 24.7-34.3 [facility] MCHC Auto (RBC) [Mass/Vol]Or dered By: Carlton Mtz on 01-02-2023 MCHC (RBC) [Mass/Vol] 31.5 g/dL 32.0-35.[address] [facility] MCV Auto (RBC) [Entitic vol] Ordered By: Carlton Mtz on 01-02-2023 MCV (RBC) [Entitic vol] 89.5 fL 80-100 [facility] Monocytes Auto (Bld) [#/Vol] Ordered By: Carlton Mtz on 01-02-2023 Monocytes (Bld) [#/Vol] 1.0 10*3/uL 0.0-0.8 [facility] Monocytes/100 WBC Auto (Bld) Ordered By: Carlton Mtz on 01-02-2023 Monocytes/100 WBC (Bld) 9.4 % . [facility] Neutrophils Auto (Bld) [#/Vo l]Ordered By: Carlton Mtz on 01-02-2023 Neutrophils (Bld) [#/Vol] 8.5 10*3/uL 1.8-7.7 [facility] Neutrophils/100 WBC Auto (Bl d)Ordered By: Carlton Mtz on 01-02-2023 Neutrophils/100 WBC (Bld) 80.8 % . [facility] No Panel InformationOrdered By: Tatiana Loya on 01-02-2023 Bedside Glucose Comment Glu2: cleaned meter [facility] No Panel InformationOrdered By: Carlton Mtz on 01-02-2023 Estimated GFR (CKD-EPI) 16.172 mL/Min [facility] Creatinine Clearance (Chem 14.33 [facility] Nucleated erythrocytes [Pres ence] in Blood by Automated countOrdered By: Carlton Mtz on 01-02-2023 Nucleated RBC Auto Ql (Bld) 0.0 /100{WBC} 0-0.5 [facility] Platelet adequacy [Presence] in Blood by Light microscopyOrdered By: Carlton Mtz on 01-02-2023 Platelets LM Ql (Bld) Normal Normal [facility] Platelet mean volume Auto (B ld) [Entitic vol]Ordered By: Carlton Mtz on 01-02-2023 Platelet mean volume (Bld) [Entitic vol] 7.1 fL 6.3-10.7 [facility] Platelet morphology finding [Identifier] in BloodOrdered By: Carlton Mtz on 01-02-2023 Platelet morphology finding Nom (Bld) Normal Normal [facility] Platelets Auto (Bld) [#/Vol] Ordered By: Carlton Mtz on 01-02-2023 Platelets (Bld) [#/Vol] 424 10*3/uL 150-450 [facility] Potassium [Moles/volume] in Serum or PlasmaOrdered By: Carlton Mtz on 01-02-2023 Potassium [Moles/Vol] 3.7 mmol/L 3.5-5.[address] [facility] Protein [Mass/volume] in Ser um or PlasmaOrdered By: Carlton Mtz on 01-02-2023 Protein [Mass/Vol] 6.3 g/dL 6.4-8.9 [facility] RBC Auto (Bld) [#/Vol]Ordere d By: Carlton Mtz on 01-02-2023 RBC (Bld) [#/Vol] 3.37 10*6/uL 3.60-5.00 [facility] RBC morphologyOrdered By: Ted Mtz on 01-02-2023 RBC morphology finding Nom (Bld) N/A [facility] Scan and CBCon 01-02-2023 Anisocytosis Ql (Bld) Slight Normal [facility] [facility] Comment on above: Performed By: #### C MP, SCAN CBC ####[facility] [address] Basophils (Bld) [#/Vol] 0.0 10*3/uL Normal 0.0-0.2 [facility] Comment on above: Result Comment: PERF ORMED BY:[place] [address] [place], [place] [phone] MEDICAL DIRECTORRAMEZ LARSON M.D. Performed By: #### C MP, SCAN CBC ####[facility] Wwa[address] [place] [address] [facility] Basophils/100 WBC (Bld) 0.1 % Normal . [facility] Comment on above: Performed By: #### C MP, SCAN CBC ####[address] [address] [facility] Eosinophils (Bld) [#/Vol] 0.0 10*3/uL Normal 0.0-0.45 [facility] Comment on above: Performed By: #### C MP, SCAN CBC ####[place] [id number] [facility] Eosinophils/100 WBC (Bld) 0.0 % Normal . [facility] Comment on above: Performed By: #### C MP, SCAN CBC ####[place] [id number] [facility] Erythrocyte distribution width (RBC) [Ratio] 17.2 % High 11.9-15.3 [facility] Comment on above: Performed By: #### C MP, SCAN CBC ####[place] [id number] [facility] Hematocrit (Bld) [Volume fraction] 30.2 % Low 34.0-46.4 [facility] Comment on above: Performed By: #### C MP, SCAN CBC ####[place] [id number] [facility] Hemoglobin (Bld) [Mass/Vol] 9.5 g/dL Low 11.8-15.4 [facility] Comment on above: Performed By: #### C MP, SCAN CBC ####[place] [id number] [facility] Hypochromasia Slight Normal [facility] Comment on above: Performed By: #### C MP, SCAN CBC ####[place] [place] [address] [facility] Lymphocytes (Bld) [#/Vol] 1.0 10*3/uL Normal 1.00-4.8 [facility] Comment on above: Performed By: #### C MP, SCAN CBC ####[address] [address] [facility] Lymphocytes/100 WBC (Bld) 9.7 % Normal . [facility] Comment on above: Performed By: #### C MP, SCAN CBC ####[place] [address] [place] [id number] [facility] MCH (RBC) [Entitic mass] 28.2 pg Normal 24.7-34.3 [facility] Comment on above: Performed By: #### C MP, SCAN CBC ####[place] [id number] [facility] MCV (RBC) [Entitic vol] 89.5 fL Normal 80-100 [facility] Comment on above: Performed By: #### C MP, SCAN CBC ####[place] [id number] [facility] Mean Corpuscular HGB Conc 31.5 g/dL Low 32.0-35.0 [facility] Comment on above: Performed By: #### C MP, SCAN CBC ####[place] [id number] [facility] Monocytes (Bld) [#/Vol] 1.0 10*3/uL High 0.0-0.8 [facility] Comment on above: Performed By: #### C MP, SCAN CBC ####[place] [id number] [facility] Monocytes/100 WBC (Bld) 9.4 % Normal . [facility] Comment on above: Performed By: #### C MP, SCAN CBC ####[place] [id number] [facility] Neutrophils (Bld) [#/Vol] 8.5 10*3/uL High 1.8-7.7 [facility] Comment on above: Performed By: #### C MP, SCAN CBC ####[address] [address] [facility] Neutrophils/100 WBC (Bld) 80.8 % Normal . [facility] Comment on above: Performed By: #### C MP, SCAN CBC ####[place] [address] [place] [address] [facility] NRBC% 0.0 /100{WBC} Normal 0-0.5 [facility] Comment on above: Performed By: #### C MP, SCAN CBC ####[address] [address] [facility] Platelet Estimate Normal Normal Normal [facility] Comment on above: Performed By: #### C MP, SCAN CBC ####[address] [address] [facility] Platelet mean volume (Bld) [Entitic vol] 7.1 fL Normal 6.3-10.7 [facility] Comment on above: Performed By: #### C MP, SCAN CBC ####[address] [address] [facility] Platelet Morphology Normal Normal Normal [facility] Comment on above: Result Comment: PERF ORMED BY:[address] [place], [place] [phone] MEDICAL MAJOR LARSON M.D. Performed By: #### C MP, SCAN CBC ####[address] [address] [facility] Platelets (Bld) [#/Vol] 424 10*3/uL Normal 150-450 [facility] Comment on above: Performed By: #### C MP, SCAN CBC ####[address] [address] [facility] RBC (Bld) [#/Vol] 3.37 10*6/uL Low 3.60-5.00 [facility] Comment on above: Performed By: #### C MP, SCAN CBC ####[address] [address] [facility] WBC (Bld) [#/Vol] 10.5 10*3/uL Normal 3.8-11.6 [facility] Comment on above: Performed By: #### C MP, SCAN CBC ####[facility] [address] [place] [address] [facility] Serum or plasma albumin/glob ulin mass ratioOrdered By: Carlton Mtz on 01-02-2023 Albumin/Globulin [Mass ratio] 1.0 {ratio} [facility] Serum or plasma anion gap de terminationOrdered By: Carlton Mtz on 01-02-2023 Anion gap [Moles/Vol] 13.2 mmol/L 6.0-15.0 [facility] Sodium [Moles/volume] in Ser um or PlasmaOrdered By: Carlton Mtz on 01-02-2023 Sodium [Moles/Vol] 132 mmol/L 136-145 [facility] Urea nitrogen [Mass/volume] in Serum or PlasmaOrdered By: Carlton Mtz on 01-02-2023 Urea nitrogen [Mass/Vol] 37 mg/dL 7-25 [facility] WBC Auto (Bld) [#/Vol]Ordere d By: Carlton Mtz on 01-02-2023 WBC (Bld) [#/Vol] 10.5 10*3/uL 3.8-11.6 [facility] Complete Blood Count Auto Di ffon 01-01-2023 Basophils (Bld) [#/Vol] 0.0 10*3/uL Normal 0.0-0.2 [facility] Comment on above: Result Comment: PERF ORMED BY:[address] [place], [place] [phone] MEDICAL DIRECTORRAMEZ LARSON M.D. Performed By: #### C BC, CMP ####[facility] [place] [id number] [facility] Basophils/100 WBC (Bld) 0.1 % Normal . [facility] Comment on above: Performed By: #### C BC, CMP ####[address] [address] [facility] Eosinophils (Bld) [#/Vol] 0.0 10*3/uL Normal 0.0-0.45 [facility] Comment on above: Performed By: #### C BC, CMP ####[address] [address] [facility] Eosinophils/100 WBC (Bld) 0.0 % Normal . [facility] Comment on above: Performed By: #### C BC, CMP ####[address] [address] [facility] Erythrocyte distribution width (RBC) [Ratio] 17.3 % High 11.9-15.3 [facility] Comment on above: Performed By: #### C BC, CMP ####[address] [address] [facility] Hematocrit (Bld) [Volume fraction] 31.5 % Low 34.0-46.4 [facility] Comment on above: Performed By: #### C BC, CMP ####[address] [address] [facility] Hemoglobin (Bld) [Mass/Vol] 9.8 g/dL Low 11.8-15.4 [facility] Comment on above: Performed By: #### C BC, CMP ####[address] [address] [facility] Lymphocytes (Bld) [#/Vol] 0.7 10*3/uL Low 1.00-4.8 [facility] Comment on above: Performed By: #### C BC, CMP ####[address] [address] [place] Lymphocytes/100 WBC (Bld) 6.5 % Normal . [facility] Comment on above: Performed By: #### C BC, CMP ####[address] [address] [facility] MCH (RBC) [Entitic mass] 27.8 pg Normal 24.7-34.3 [facility] Comment on above: Performed By: #### C BC, CMP ####[place] [address] [place] [address] [facility] MCV (RBC) [Entitic vol] 89.1 fL Normal 80-100 [facility] Comment on above: Performed By: #### C BC, CMP ####[address] [address] [facility] Mean Corpuscular HGB Conc 31.2 g/dL Low 32.0-35.0 [facility] Comment on above: Performed By: #### C BC, CMP ####[address] [address] [facility] Monocytes (Bld) [#/Vol] 0.6 10*3/uL Normal 0.0-0.8 [facility] Comment on above: Performed By: #### C BC, CMP ####[address] [address] [facility] Monocytes/100 WBC (Bld) 5.9 % Normal . [facility] Comment on above: Performed By: #### C BC, CMP ####[address] [address] [facility] Neutrophils (Bld) [#/Vol] 8.8 10*3/uL High 1.8-7.7 [facility] Comment on above: Performed By: #### C BC, CMP ####[address] [address] [facility] Neutrophils/100 WBC (Bld) 87.5 % Normal . [facility] Comment on above: Performed By: #### C BC, CMP ####[address] [address] [facility] NRBC% 0.0 /100{WBC} Normal 0-0.5 [facility] Comment on above: Performed By: #### C BC, CMP ####[address] [address] [facility] Platelet mean volume (Bld) [Entitic vol] 7.5 fL Normal 6.3-10.7 [facility] Comment on above: Performed By: #### C BC, CMP ####[address] [address] [facility] Platelets (Bld) [#/Vol] 443 10*3/uL Normal 150-450 [facility] Comment on above: Performed By: #### C BC, CMP ####[address] [address] [facility] RBC (Bld) [#/Vol] 3.53 10*6/uL Low 3.60-5.00 [facility] Comment on above: Performed By: #### C BC, CMP ####[address] [address] [facility] WBC (Bld) [#/Vol] 10.1 10*3/uL Normal 3.8-11.6 [facility] Comment on above: Performed By: #### C BC, CMP ####[address] [address] [facility] Comprehensive Metabolic Pane eliseo 01-01-2023 Albumin [Mass/Vol] 3.2 g/dL Low 3.5-5.7 [facility] Comment on above: Performed By: #### C REBECCA, CMP ####[place] [id number] [facility] Albumin/Globulin [Mass ratio] 0.9 {ratio} Normal [facility] Comment on above: Performed By: #### C BC, CMP ####[address] [address] [facility] ALP [Catalytic activity/Vol] 167 U/L High 34-104 [facility] Comment on above: Performed By: #### C BC, CMP ####[address] [address] [facility] ALT [Catalytic activity/Vol] 33 U/L Normal 7-52 [facility] Comment on above: Performed By: #### C BC, CMP ####[place] [id number] [facility] Anion gap [Moles/Vol] 15.6 mmol/L High 6.0-15.0 [facility] Comment on above: Performed By: #### C BC, CMP ####[facility] [address] [place] [address] [facility] AST [Catalytic activity/Vol] 27 U/L Normal 13-39 [facility] Comment on above: Performed By: #### C BC, CMP ####[facility] [address] [place] [address] [facility] Bilirubin [Mass/Vol] 0.3 mg/dL Normal 0.3-1.0 [facility] Comment on above: Performed By: #### C BC, CMP ####[facility] [place] [address] [facility] Calcium [Mass/Vol] 9.8 mg/dL Normal 8.6-10.3 [facility] Comment on above: Performed By: #### C BC, CMP ####[place] [address] [place] [address] [facility] Chloride [Moles/Vol] 91 mmol/L Low 98-107 [facility] Comment on above: Performed By: #### C BC, CMP ####[facility] [place] [address] [facility] CO2 [Moles/Vol] 26.4 mmol/L Normal 21.0-31.0 [facility] Comment on above: Performed By: #### C BC, CMP ####[facility] [place] [address] [place] Creatinine [Mass/Vol] 4.45 mg/dL Significan t change up 0.60-1.20 [facility] Comment on above: Performed By: #### C BC, CMP ####[facility] [address] [place] [address] [place] Creatinine Clr Calc Pharmacy 9.43 Normal [facility] Comment on above: Result Comment: PERF ORMED BY:[place] [address] [address] [place], [place] [phone] MEDICAL MAJOR LARSON M.D. Performed By: #### C BC, CMP ####[facility] [place] [address] [facility] GFR/1.73 sq M.predicted MDRD (S/P/Bld) [Vol rate/Area] 9.794 mL/min/{1.73_m2} Normal [facility] Comment on above: Performed By: #### C BC, CMP ####[place] [address] [place] [address] [facility] Globulin (S) [Mass/Vol] 3.6 g/dL Normal [facility] Comment on above: Performed By: #### C BC, CMP ####[address] [address] [facility] Glucose [Mass/Vol] 227 mg/dL High 70-100 [facility] Comment on above: Result Comment: [place] Glucose Reference Range is dependent on time and content of last meal. Glucose of more than 200 mg/dL in a nonstressed, ambulatory subject supports the diagnosis of Diabetes Mellitus. ADA recommended reference range Performed By: #### C BC, CMP ####[address] [address] [facility] Potassium [Moles/Vol] 4.0 mmol/L Normal 3.5-5.[address] [facility] Comment on above: Performed By: #### C BC, CMP ####[address] [address] [facility] Protein [Mass/Vol] 6.8 g/dL Normal 6.4-8.9 [facility] Comment on above: Performed By: #### C BC, CMP ####[address] [address] [facility] Sodium [Moles/Vol] 129 mmol/L Low 136-145 [facility] Comment on above: Performed By: #### C BC, CMP ####[address] [address] [facility] Urea nitrogen [Mass/Vol] 57 mg/dL High 7-25 [facility] Comment on above: Performed By: #### C BC, CMP ####[address] [address] [facility] Glucose Poct Glucometerson 1 03-03-2022 Glucose [Mass/Vol] 380 mg/dL Normal [facility] Comment on above: Result Comment: [facility][note 3] Glucose Reference Range is dependent on time and content of last meal. Glucose of more than 200 mg/dL in a nonstressed, ambulatory subject supports the diagnosis of Diabetes Mellitus.PERFORMED BY:[address] [place], [place] [phone] MEDICAL DIRECTORRAMEZ LARSON M.D. Performed By: #### G LULS ####Point of Care testing, Glucose [Mass/Vol] 165 mg/dL Normal [facility] Comment on above: Result Comment: [facility][note 3] Glucose Reference Range is dependent on time and content of last meal. Glucose of more than 200 mg/dL in a nonstressed, ambulatory subject supports the diagnosis of Diabetes Mellitus.PERFORMED BY:[address] [place], [place] [phone] MEDICAL MAJOR LARSON M.D. Performed By: #### G LULS ####Point of Care testing, Glucose [Mass/Vol] 193 mg/dL Normal [facility] Comment on above: Result Comment: [facility][note 3] Glucose Reference Range is dependent on time and content of last meal. Glucose of more than 200 mg/dL in a nonstressed, ambulatory subject supports the diagnosis of Diabetes Mellitus.PERFORMED BY:[place] [address] [place], [place] [phone] MEDICAL MAJOR LARSON M.D. Performed By: #### G LULS ####Point of Care testing, Complete Blood Count Auto Di ffon 12-31-2022 Basophils (Bld) [#/Vol] 0.0 10*3/uL Normal 0.0-0.2 [facility] Comment on above: Result Comment: PERF ORMED BY:[place] [address] [place], [place] [phone] MEDICAL MAJOR LARSON M.D. Performed By: #### C MP, CBC ####[place] [id number] [facility] Basophils/100 WBC (Bld) 0.1 % Normal . [facility] Comment on above: Performed By: #### C MP, CBC ####[place] [id number] [facility] Eosinophils (Bld) [#/Vol] 0.0 10*3/uL Normal 0.0-0.45 [facility] Comment on above: Performed By: #### C MP, CBC ####[place] [address] [facility] Eosinophils/100 WBC (Bld) 0.0 % Normal . [facility] Comment on above: Performed By: #### C MP, CBC ####[address] Erythrocyte distribution width (RBC) [Ratio] 17.7 % High 11.9-15.3 [facility] Comment on above: Performed By: #### C MP, CBC ####[address] Hematocrit (Bld) [Volume fraction] 30.9 % Low 34.0-46.4 [facility] Comment on above: Performed By: #### C MP, CBC ####[place] [address] [facility] Hemoglobin (Bld) [Mass/Vol] 9.7 g/dL Low 11.8-15.4 [facility] Comment on above: Performed By: #### C MP, CBC ####[address] Lymphocytes (Bld) [#/Vol] 0.3 10*3/uL Low 1.00-4.8 [facility] Comment on above: Performed By: #### C MP, CBC ####[place] [address] [facility] Lymphocytes/100 WBC (Bld) 4.3 % Normal . [facility] Comment on above: Performed By: #### C MP, CBC ####[place] [address] [facility] MCH (RBC) [Entitic mass] 28.1 pg Normal 24.7-34.3 [facility] Comment on above: Performed By: #### C MP, CBC ####[place] [address] [facility] MCV (RBC) [Entitic vol] 89.8 fL Normal 80-100 [facility] Comment on above: Performed By: #### C MP, CBC ####[place] [address] [facility] Mean Corpuscular HGB Conc 31.3 g/dL Low 32.0-35.0 [facility] Comment on above: Performed By: #### C MP, CBC ####[address] Monocytes (Bld) [#/Vol] 0.3 10*3/uL Normal 0.0-0.8 [facility] Comment on above: Performed By: #### C MP, CBC ####[place] [address] [facility] Monocytes/100 WBC (Bld) 4.1 % Normal . [facility] Comment on above: Performed By: #### C MP, CBC ####[place] [address] [facility] Neutrophils (Bld) [#/Vol] 6.7 10*3/uL Normal 1.8-7.7 [facility] Comment on above: Performed By: #### C MP, CBC ####[place] [address] [facility] Neutrophils/100 WBC (Bld) 91.5 % Normal . [facility] Comment on above: Performed By: #### C MP, CBC ####[place] [address] [facility] NRBC% 0.1 /100{WBC} Normal 0-0.5 [facility] Comment on above: Performed By: #### C MP, CBC ####[address] [place] [address] [facility] Platelet mean volume (Bld) [Entitic vol] 7.8 fL Normal 6.3-10.7 [facility] Comment on above: Performed By: #### C MP, CBC ####[address] [address] [facility] Platelets (Bld) [#/Vol] 409 10*3/uL Normal 150-450 [facility] Comment on above: Performed By: #### C MP, CBC ####[address] [address] [facility] RBC (Bld) [#/Vol] 3.44 10*6/uL Low 3.60-5.00 [facility] Comment on above: Performed By: #### C MP, CBC ####[address] [address] [facility] WBC (Bld) [#/Vol] 7.3 10*3/uL Normal 3.8-11.6 [facility] Comment on above: Performed By: #### C MP, CBC ####[address] [address] [facility] Comprehensive Metabolic Pane eliseo 12-31-2022 Albumin [Mass/Vol] 3.2 g/dL Low 3.5-5.7 [facility] Comment on above: Performed By: #### C MP, CBC ####[place] [id number] [facility] Albumin/Globulin [Mass ratio] 0.9 {ratio} Normal [facility] Comment on above: Performed By: #### C MP, CBC ####[address] [address] [facility] ALP [Catalytic activity/Vol] 157 U/L High 34-104 [facility] Comment on above: Performed By: #### C MP, CBC ####[address] [address] [facility] ALT [Catalytic activity/Vol] 23 U/L Normal 7-52 [facility] Comment on above: Performed By: #### C MP, CBC ####[facility] F[address] [place] [address] [facility] Anion gap [Moles/Vol] 15.3 mmol/L High 6.0-15.0 [facility] Comment on above: Performed By: #### C MP, CBC ####[facility] [address] [place] [address] [facility] AST [Catalytic activity/Vol] 21 U/L Normal 13-39 [facility] Comment on above: Performed By: #### C MP, CBC ####[facility] K[address] [place] [address] [facility] Bilirubin [Mass/Vol] 0.4 mg/dL Normal 0.3-1.0 [facility] Comment on above: Performed By: #### C MP, CBC ####[facility] [place] [address] [facility] Calcium [Mass/Vol] 9.7 mg/dL Normal 8.6-10.3 [facility] Comment on above: Performed By: #### C MP, CBC ####[place] [address] [place] [address] [facility] Chloride [Moles/Vol] 93 mmol/L Low 98-107 [facility] Comment on above: Performed By: #### C MP, CBC ####[facility] [place] [address] [facility] CO2 [Moles/Vol] 27.5 mmol/L Normal 21.0-31.0 [facility] Comment on above: Performed By: #### C MP, CBC ####[place] [address] [place] [address] [facility] Creatinine [Mass/Vol] 3.40 mg/dL Significan t change up 0.60-1.20 [facility] Comment on above: Performed By: #### C MP, CBC ####[facility] [place] [address] [facility] Creatinine Clr Calc Pharmacy 12.35 Normal [facility] Comment on above: Result Comment: PERF ORMED BY:[address] [place], [place] [phone] MEDICAL DIRECTORRAMEZ LARSON M.D. Performed By: #### C MP, CBC ####[place] [address] [place] [address] [facility] GFR/1.73 sq M.predicted MDRD (S/P/Bld) [Vol rate/Area] 13.528 mL/min/{1.73_m2} Normal [facility] Comment on above: Performed By: #### C MP, CBC ####[address] [address] [facility] Globulin (S) [Mass/Vol] 3.7 g/dL [facility] Comment on above: Performed By: #### C MP, CBC ####[place] [id number] [facility] Glucose [Mass/Vol] 255 mg/dL Significant change up 70-100 [facility] Comment on above: Result Comment: [facility] Glucose Reference Range is dependent on time and content of last meal. Glucose of more than 200 mg/dL in a nonstressed, ambulatory subject supports the diagnosis of Diabetes Mellitus. ADA recommended reference range Performed By: #### C MP, CBC ####[address] [address] [facility] Potassium [Moles/Vol] 3.8 mmol/L Normal 3.5-5.[address] [facility] Comment on above: Performed By: #### C MP, CBC ####[address] [address] [facility] Protein [Mass/Vol] 6.9 g/dL Normal 6.4-8.9 [facility] Comment on above: Performed By: #### C MP, CBC ####[place] [id number] [facility] Sodium [Moles/Vol] 132 mmol/L Significant change down 136-145 [facility] Comment on above: Performed By: #### C MP, CBC ####[place] [id number] [facility] Urea nitrogen [Mass/Vol] 36 mg/dL Significant change up 7-25 [facility] Comment on above: Performed By: #### C MP, CBC ####[facility] [address] [place] [address] [facility] Glucose Poct Glucometerson 1 03-02-2022 Commemt1 [facility] Comment on above: Result Comment: Glu2 : WILL NOTIFY DR/OLIVERERFORMED BY:[place] [address] [place], [place] [phone] MEDICAL DIRECTORRAMEZ LARSON M.D. Performed By: #### G LULS ####Point of Care testing, Glucose [Mass/Vol] 406 mg/dL Off scale high [facility] Comment on above: Result Comment: [place] om Glucose Reference Range is dependent on time and content of last meal. Glucose of more than 200 mg/dL in a nonstressed, ambulatory subject supports the diagnosis of Diabetes Mellitus. Performed By: #### G LULS ####Point of Care testing, Glucose [Mass/Vol] 397 mg/dL [facility] Comment on above: Result Comment: [place] om Glucose Reference Range is dependent on time and content of last meal. Glucose of more than 200 mg/dL in a nonstressed, ambulatory subject supports the diagnosis of Diabetes Mellitus.PERFORMED BY:[place] [address] [address] [place], [place] [phone] MEDICAL MJAOR LARSON M.D. Performed By: #### G LULS ####Point of Care testing, Glucose [Mass/Vol] 246 mg/dL [facility] Comment on above: Result Comment: [place] Glucose Reference Range is dependent on time and content of last meal. Glucose of more than 200 mg/dL in a nonstressed, ambulatory subject supports the diagnosis of Diabetes Mellitus.PERFORMED BY:[place] [address] [place] [place], [place] [phone] MEDICAL MAJOR LARSON M.D. Performed By: #### G LULS ####Point of Care testing, Glucose [Mass/Vol] 225 mg/dL [facility] Comment on above: Result Comment: [facility][note 3] Glucose Reference Range is dependent on time and content of last meal. Glucose of more than 200 mg/dL in a nonstressed, ambulatory subject supports the diagnosis of Diabetes Mellitus.PERFORMED BY:[address] [place], [place] [phone] MEDICAL MAJOR LARSON M.D. Performed By: #### G LULS ####Point of Care testing, Glucose [Mass/Vol] 227 mg/dL Normal [facility] Comment on above: Result Comment: [facility][note 3] Glucose Reference Range is dependent on time and content of last meal. Glucose of more than 200 mg/dL in a nonstressed, ambulatory subject supports the diagnosis of Diabetes Mellitus.PERFORMED BY:[address] [place], [place] [phone] MEDICAL MAJOR LARSON M.D. Performed By: #### G LULS ####Point of Care testing, Glucose [Mass/Vol] 373 mg/dL Normal [facility] Comment on above: Result Comment: [facility][note 3] Glucose Reference Range is dependent on time and content of last meal. Glucose of more than 200 mg/dL in a nonstressed, ambulatory subject supports the diagnosis of Diabetes Mellitus.PERFORMED BY:[address] [place], [place] [phone] MEDICAL MAJOR LARSON M.D. Performed By: #### G LULS ####Point of Care testing, A1C with Estimated Average G [facility] 12-30-2022 Glucose [Mass/Vol] 171 mg/dL Normal [facility] Comment on above: Result Comment: PERF ORMED BY:[address] [place], [place] [phone] MEDICAL MAJOR LARSON M.D. Performed By: #### V [id number], RETIC, A1C WTH eA, CMP, FE and TIBC, MAURICIO, CBC, LDH ####[address] [address] [facility] HbA1c (Bld) [Mass fraction] 7.6 % High 4.3-5.6 [facility] Comment on above: Result Comment: Incr eased risk for diabetes: 5.7 - 6.4 diabetes: >6.4 glycemic control for adults with diabetes: <7.0 Performed By: #### V [id number], RETIC, A1C WTH eA, CMP, FE and TIBC, MAURICIO, CBC, LDH ####[place] [phone] [facility] Absolute reticulocyte countO rdered By: Carlton Mtz on 12-30-2022 Reticulocytes (Bld) [#/Vol] 0.052 10*6/uL 0.024-0.084 [facility] B-Type Natriuretic Peptideon 12-30-2022 Natriuretic peptide B (Bld) [Mass/Vol] 1358.0 pg/mL High 5-100 [facility] Comment on above: Result Comment: PERF ORMED BY:[address] [place], [place] [phone] MEDICAL DIRECTORRAMEZ LARSON M.D. Performed By: #### H S TROP, CUBLD, LACTIC, CBC, CMP, PTT, PT, BNP ####[address] BioFire Not Detectedon 12-30 BioFire Not Detected Not detected Normal Not Detecte [facility] Comment on above: Result Comment: This is a duplicate RP2.1 COVID (PCR) result to be used for statistical tracking purpose only.PERFORMED BY:[address] [place], [place] [phone] MEDICAL DIRECTORRAMEZ LARSON M.D. Performed By: #### B IOFIRECOVNOTDE, RESP PANEL UPP. ####[place] [id number] [facility] Blood Cultureon 12-30-2022 Bacteria identified Cx Nom (Bld) NO GROWTH 5 DAYS PERFORMED BY: [facility] [address] [place] [id number] PATHOLOGIST TRANSMISSION MECHANIC RAMEZ LARSON M.D. [facility] Comment on above: Performed By: #### H S TROP, CUBLD, LACTIC, CBC, CMP, PTT, PT, BNP ####[place] [address] [place] [id number] [facility] Bacteria identified Cx Nom (Bld) NO GROWTH 5 DAYS PERFORMED BY: [facility] [address] [id number] PATHOLOGIST TRANSMISSION MECHANIC RAMEZ LARSON M.D. [facility] Comment on above: Performed By: #### H S TROP, CUBLD, LACTIC, CBC, CMP, PTT, PT, BNP ####[place] [phone] [facility] CA cardiac event monitoron 1 03-01-2022 CA cardiac event monitor Normal [facility] COVID-19 / Flu A/B / RSV PCR on 12-30-2022 SARS-CoV-2 (COVID-19) RNA MADISON+probe Ql (Unsp spec) Normal [facility] Comment on above: Performed By: #### C EPHEID NEG, COVID19 FLU RSV ####[place] [phone] [facility] COVID-19 Detected/Not Detect edOrdered By: Carlton Mtz on 12-30-2022 SARS-CoV-2 (COVID-19) RNA MADISON+non-probe Ql (Nph) Not detected Not Detecte [facility] Comment on above: This is a duplicate RP2.1 COVID (PCR) result to be used for statistical tracking purpose only. Cepheid COVID PCR Negativeon 12-30-2022 SARS-CoV-2 (COVID-19) RNA MADISON+probe Ql (Unsp spec) Negative Normal Negative [facility] Comment on above: Result Comment: This is a duplicate Cepheid Xpert Xpress CoV-2/Flu/RSV Plus RNA by RT-PCR result to be used for statistical tracking purpose only.PERFORMED BY:[address] [place], [place] [phone] MEDICAL DIRECTORRAMEZ LARSON M.D. Performed By: #### C EPHEID NEG, COVID19 FLU RSV ####[address] Complete Blood Count Auto Di ffon 12-30-2022 Basophils (Bld) [#/Vol] 0.0 10*3/uL Normal 0.0-0.2 [facility] Comment on above: Performed By: #### V [id number], RETIC, A1C WTH eA, CMP, FE and TIBC, MAURICIO, CBC, LDH ####[address] Basophils/100 WBC (Bld) 0.5 % Normal . [facility] Comment on above: Performed By: #### V [id number], RETIC, A1C WTH eA, CMP, FE and TIBC, MAURICIO, CBC, LDH ####[address] Eosinophils (Bld) [#/Vol] 0.1 10*3/uL Normal 0.0-0.45 [facility] Comment on above: Performed By: #### V [id number], RETIC, A1C WTH eA, CMP, FE and TIBC, MAURICIO, CBC, LDH ####[address] Eosinophils/100 WBC (Bld) 1.7 % Normal . [facility] Comment on above: Performed By: #### V [id number], RETIC, A1C WTH eA, CMP, FE and TIBC, MAURICOI, CBC, LDH ####[address] Erythrocyte distribution width (RBC) [Ratio] 17.7 % High 11.9-15.3 [facility] Comment on above: Performed By: #### V [id number], RETIC, A1C WTH eA, CMP, FE and TIBC, MAURICIO, CBC, LDH ####[address] Hematocrit (Bld) [Volume fraction] 27.0 % Low 34.0-46.4 [facility] Comment on above: Performed By: #### V [id number], RETIC, A1C WTH eA, CMP, FE and TIBC, MAURICIO, CBC, LDH ####[address] Hemoglobin (Bld) [Mass/Vol] 8.5 g/dL Low 11.8-15.4 [facility] Comment on above: Performed By: #### V [id number], RETIC, A1C WTH eA, CMP, FE and TIBC, MAURICIO, CBC, LDH ####[address] Lymphocytes (Bld) [#/Vol] 1.1 10*3/uL Normal 1.00-4.8 [facility] Comment on above: Performed By: #### V [id number], RETIC, A1C WTH eA, CMP, FE and TIBC, MAURICIO, CBC, LDH ####[address] Lymphocytes/100 WBC (Bld) 13.1 % Normal . [facility] Comment on above: Performed By: #### V [id number], RETIC, A1C WTH eA, CMP, FE and TIBC, MAURICIO, CBC, LDH ####[address] MCH (RBC) [Entitic mass] 28.0 pg Normal 24.7-34.3 [facility] Comment on above: Performed By: #### V [id number], RETIC, A1C WTH eA, CMP, FE and TIBC, MAURICIO, CBC, LDH ####[address] MCV (RBC) [Entitic vol] 89.5 fL Normal 80-100 [facility] Comment on above: Performed By: #### V [id number], RETIC, A1C WTH eA, CMP, FE and TIBC, MAURICIO, CBC, LDH ####[address] Mean Corpuscular HGB Conc 31.3 g/dL Low 32.0-35.0 [facility] Comment on above: Performed By: #### V [id number], RETIC, A1C WTH eA, CMP, FE and TIBC, MAURICIO, CBC, LDH ####[address] Monocytes (Bld) [#/Vol] 1.2 10*3/uL High 0.0-0.8 [facility] Comment on above: Performed By: #### V [id number], RETIC, A1C WTH eA, CMP, FE and TIBC, MAURICIO, CBC, LDH ####[address] Monocytes/100 WBC (Bld) 13.6 % Normal . [facility] Comment on above: Performed By: #### V [id number], RETIC, A1C WTH eA, CMP, FE and TIBC, MAURICIO, CBC, LDH ####[address] Neutrophils (Bld) [#/Vol] 6.2 10*3/uL Normal 1.8-7.7 [facility] Comment on above: Performed By: #### V [id number], RETIC, A1C WTH eA, CMP, FE and TIBC, MAURICIO, CBC, LDH ####[address] Neutrophils/100 WBC (Bld) 71.1 % Normal . [facility] Comment on above: Performed By: #### V [id number], RETIC, A1C WTH eA, CMP, FE and TIBC, MAURICIO, CBC, LDH ####[address] NRBC% 0.0 /100{WBC} Normal 0-0.5 [facility] Comment on above: Performed By: #### V [id number], RETIC, A1C WTH eA, CMP, FE and TIBC, MAURICIO, CBC, LDH ####[address] Platelet mean volume (Bld) [Entitic vol] 7.2 fL Normal 6.3-10.7 [facility] Comment on above: Performed By: #### V [id number], RETIC, A1C WTH eA, CMP, FE and TIBC, MAURICIO, CBC, LDH ####[address] Platelets (Bld) [#/Vol] 386 10*3/uL Normal 150-450 [facility] Comment on above: Performed By: #### V [id number], RETIC, A1C WTH eA, CMP, FE and TIBC, MAURICIO, CBC, LDH ####[address] RBC (Bld) [#/Vol] 3.02 10*6/uL Low 3.60-5.00 [facility] Comment on above: Performed By: #### V [id number], RETIC, A1C WTH eA, CMP, FE and TIBC, MAURICIO, CBC, LDH ####[address] WBC (Bld) [#/Vol] 8.7 10*3/uL Normal 3.8-11.6 [facility] Comment on above: Performed By: #### V [id number], RETIC, A1C WTH eA, CMP, FE and TIBC, MAURICIO, CBC, LDH ####[address] Basophils (Bld) [#/Vol] 0.0 10*3/uL Normal 0.0-0.2 [facility] Comment on above: Result Comment: PERF ORMED BY:[address] [place], [place] [phone] MEDICAL DIRECTORRAMEZ LARSON M.D. Performed By: #### H S TROP, CUBLD, LACTIC, CBC, CMP, PTT, PT, BNP ####[address] Basophils/100 WBC (Bld) 0.3 % Normal . [facility] Comment on above: Performed By: #### H S TROP, CUBLD, LACTIC, CBC, CMP, PTT, PT, BNP ####[address] Eosinophils (Bld) [#/Vol] 0.1 10*3/uL Normal 0.0-0.45 [facility] Comment on above: Performed By: #### H S TROP, CUBLD, LACTIC, CBC, CMP, PTT, PT, BNP ####[address] Eosinophils/100 WBC (Bld) 1.0 % Normal . [facility] Comment on above: Performed By: #### H S TROP, CUBLD, LACTIC, CBC, CMP, PTT, PT, BNP ####[address] Erythrocyte distribution width (RBC) [Ratio] 17.6 % High 11.9-15.3 [facility] Comment on above: Performed By: #### H S TROP, CUBLD, LACTIC, CBC, CMP, PTT, PT, BNP ####[address] Hematocrit (Bld) [Volume fraction] 27.8 % Low 34.0-46.4 [facility] Comment on above: Performed By: #### H S TROP, CUBLD, LACTIC, CBC, CMP, PTT, PT, BNP ####[address] Hemoglobin (Bld) [Mass/Vol] 8.8 g/dL Low 11.8-15.4 [facility] Comment on above: Performed By: #### H S TROP, CUBLD, LACTIC, CBC, CMP, PTT, PT, BNP ####[address] Lymphocytes (Bld) [#/Vol] 1.2 10*3/uL Normal 1.00-4.8 [facility] Comment on above: Performed By: #### H S TROP, CUBLD, LACTIC, CBC, CMP, PTT, PT, BNP ####[address] Lymphocytes/100 WBC (Bld) 12.9 % Normal . [facility] Comment on above: Performed By: #### H S TROP, CUBLD, LACTIC, CBC, CMP, PTT, PT, BNP ####[address] MCH (RBC) [Entitic mass] 28.4 pg Normal 24.7-34.3 [facility] Comment on above: Performed By: #### H S TROP, CUBLD, LACTIC, CBC, CMP, PTT, PT, BNP ####[address] MCV (RBC) [Entitic vol] 89.6 fL Normal 80-100 [facility] Comment on above: Performed By: #### H S TROP, CUBLD, LACTIC, CBC, CMP, PTT, PT, BNP ####[address] Mean Corpuscular HGB Conc 31.7 g/dL Low 32.0-35.0 [facility] Comment on above: Performed By: #### H S TROP, CUBLD, LACTIC, CBC, CMP, PTT, PT, BNP ####[address] Monocytes (Bld) [#/Vol] 1.3 10*3/uL High 0.0-0.8 [facility] Comment on above: Performed By: #### H S TROP, CUBLD, LACTIC, CBC, CMP, PTT, PT, BNP ####[address] Monocytes/100 WBC (Bld) 23.39 % High 0.00-20.00 [facility] Comment on above: Result Comment: For adults in ED, MDW > 20.0 may be associated with a higher risk of sepsis during the first 12 hrs of hospital admission Performed By: #### H S TROP, CUBLD, LACTIC, CBC, CMP, PTT, PT, BNP ####[address] Monocytes/100 WBC (Bld) 13.9 % Normal . [facility] Comment on above: Performed By: #### H S TROP, CUBLD, LACTIC, CBC, CMP, PTT, PT, BNP ####[address] Neutrophils (Bld) [#/Vol] 6.9 10*3/uL Normal 1.8-7.7 [facility] Comment on above: Performed By: #### H S TROP, CUBLD, LACTIC, CBC, CMP, PTT, PT, BNP ####[address] Neutrophils/100 WBC (Bld) 71.9 % Normal . [facility] Comment on above: Performed By: #### H S TROP, CUBLD, LACTIC, CBC, CMP, PTT, PT, BNP ####[address] NRBC% 0.0 /100{WBC} Normal 0-0.5 [facility] Comment on above: Performed By: #### H S TROP, CUBLD, LACTIC, CBC, CMP, PTT, PT, BNP ####[address] Platelet mean volume (Bld) [Entitic vol] 7.2 fL Normal 6.3-10.7 [facility] Comment on above: Performed By: #### H S TROP, CUBLD, LACTIC, CBC, CMP, PTT, PT, BNP ####[address] Platelets (Bld) [#/Vol] 397 10*3/uL Normal 150-450 [facility] Comment on above: Performed By: #### H S TROP, CUBLD, LACTIC, CBC, CMP, PTT, PT, BNP ####[address] RBC (Bld) [#/Vol] 3.10 10*6/uL Low 3.60-5.00 [facility] Comment on above: Performed By: #### H S TROP, CUBLD, LACTIC, CBC, CMP, PTT, PT, BNP ####[address] WBC (Bld) [#/Vol] 9.6 10*3/uL Normal 3.8-11.6 [facility] Comment on above: Performed By: #### H S TROP, CUBLD, LACTIC, CBC, CMP, PTT, PT, BNP ####[address] Comprehensive Metabolic Pane eliseo 12-30-2022 Albumin [Mass/Vol] 3.0 g/dL Low 3.5-5.7 [facility] Comment on above: Performed By: #### V [id number], RETIC, A1C WTH eA, CMP, FE and TIBC, MAURICIO, CBC, LDH ####[address] Albumin/Globulin [Mass ratio] 1.0 {ratio} Normal [facility] Comment on above: Performed By: #### V [id number], RETIC, A1C WTH eA, CMP, FE and TIBC, MAURICIO, CBC, LDH ####[address] ALP [Catalytic activity/Vol] 159 U/L High 34-104 [facility] Comment on above: Performed By: #### V [id number], RETIC, A1C WTH eA, CMP, FE and TIBC, MAURICIO, CBC, LDH ####[address] ALT [Catalytic activity/Vol] 23 U/L Normal 7-52 [facility] Comment on above: Performed By: #### V [id number], RETIC, A1C WTH eA, CMP, FE and TIBC, MAURICIO, CBC, LDH ####[address] Anion gap [Moles/Vol] 17.4 mmol/L High 6.0-15.0 [facility] Comment on above: Performed By: #### V [id number], RETIC, A1C WTH eA, CMP, FE and TIBC, MAURICIO, CBC, LDH ####[address] AST [Catalytic activity/Vol] 19 U/L Normal 13-39 [facility] Comment on above: Performed By: #### V [id number], RETIC, A1C WTH eA, CMP, FE and TIBC, MAURICIO, CBC, LDH ####[address] Bilirubin [Mass/Vol] 0.4 mg/dL Normal 0.3-1.0 [facility] Comment on above: Performed By: #### V [id number], RETIC, A1C WTH eA, CMP, FE and TIBC, MAURICIO, CBC, LDH ####[address] Calcium [Mass/Vol] 9.9 mg/dL Normal 8.6-10.3 [facility] Comment on above: Performed By: #### V [id number], RETIC, A1C WTH eA, CMP, FE and TIBC, MAURICIO, CBC, LDH ####[address] Chloride [Moles/Vol] 88 mmol/L Low 98-107 [facility] Comment on above: Performed By: #### V [id number], RETIC, A1C WTH eA, CMP, FE and TIBC, MAURICIO, CBC, LDH ####[address] CO2 [Moles/Vol] 25.0 mmol/L Normal 21.0-31.0 [facility] Comment on above: Performed By: #### V [id number], RETIC, A1C WTH eA, CMP, FE and TIBC, MAURICIO, CBC, LDH ####[address] Creatinine [Mass/Vol] 5.26 mg/dL Significan t change up 0.60-1.20 [facility] Comment on above: Performed By: #### V [id number], RETIC, A1C WTH eA, CMP, FE and TIBC, MAURICIO, CBC, LDH ####[address] Creatinine Clr Calc Pharmacy 7.98 [facility] Comment on above: Performed By: #### V [id number], RETIC, A1C WTH eA, CMP, FE and TIBC, MAURICIO, CBC, LDH ####[address] GFR/1.73 sq M.predicted MDRD (S/P/Bld) [Vol rate/Area] 8.014 mL/min/{1.73_m2} [facility] Comment on above: Performed By: #### V [id number], RETIC, A1C WTH eA, CMP, FE and TIBC, MAURICIO, CBC, LDH ####[address] Globulin (S) [Mass/Vol] 3.0 g/dL [facility] Comment on above: Performed By: #### V [id number], RETIC, A1C WTH eA, CMP, FE and TIBC, MAURICIO, CBC, LDH ####[address] Glucose [Mass/Vol] 146 mg/dL High 70-100 [facility] Comment on above: Result Comment: [place] Glucose Reference Range is dependent on time and content of last meal. Glucose of more than 200 mg/dL in a nonstressed, ambulatory subject supports the diagnosis of Diabetes Mellitus. ADA recommended reference range Performed By: #### V [id number], RETIC, A1C WTH eA, CMP, FE and TIBC, MAURICIO, CBC, LDH ####[address] Potassium [Moles/Vol] 4.4 mmol/L Normal 3.5-5.[address] [facility] Comment on above: Performed By: #### V [id number], RETIC, A1C WTH eA, CMP, FE and TIBC, MAURICIO, CBC, LDH ####[place] [id number] [facility] Protein [Mass/Vol] 6.0 g/dL Low 6.4-8.9 [facility] Comment on above: Performed By: #### V [id number], RETIC, A1C WTH eA, CMP, FE and TIBC, MAURICIO, CBC, LDH ####[place] [id number] [facility] Sodium [Moles/Vol] 126 mmol/L Low 136-145 [facility] Comment on above: Performed By: #### V [id number], RETIC, A1C WTH eA, CMP, FE and TIBC, MAURICIO, CBC, LDH ####[address] Urea nitrogen [Mass/Vol] 81 mg/dL High 7-25 [facility] Comment on above: Performed By: #### V [id number], RETIC, A1C WTH eA, CMP, FE and TIBC, MAURICIO, CBC, LDH ####[place] [id number] [facility] Albumin [Mass/Vol] 3.2 g/dL Low 3.5-5.7 [facility] Comment on above: Performed By: #### H S TROP, CUBLD, LACTIC, CBC, CMP, PTT, PT, BNP ####[place] [id number] [facility] Albumin/Globulin [Mass ratio] 0.9 {ratio} Normal [facility] Comment on above: Performed By: #### H S TROP, CUBLD, LACTIC, CBC, CMP, PTT, PT, BNP ####[place] [id number] [facility] ALP [Catalytic activity/Vol] 146 U/L High 34-104 [facility] Comment on above: Performed By: #### H S TROP, CUBLD, LACTIC, CBC, CMP, PTT, PT, BNP ####[place] [id number] [facility] ALT [Catalytic activity/Vol] 26 U/L Normal 7-52 [facility] Comment on above: Performed By: #### H S TROP, CUBLD, LACTIC, CBC, CMP, PTT, PT, BNP ####[address] Anion gap [Moles/Vol] 18.4 mmol/L High 6.0-15.0 [facility] Comment on above: Performed By: #### H S TROP, CUBLD, LACTIC, CBC, CMP, PTT, PT, BNP ####[address] AST [Catalytic activity/Vol] 21 U/L Normal 13-39 [facility] Comment on above: Performed By: #### H S TROP, CUBLD, LACTIC, CBC, CMP, PTT, PT, BNP ####[address] Bilirubin [Mass/Vol] 0.4 mg/dL Normal 0.3-1.0 [facility] Comment on above: Performed By: #### H S TROP, CUBLD, LACTIC, CBC, CMP, PTT, PT, BNP ####[address] Calcium [Mass/Vol] 10.2 mg/dL Normal 8.6-10.3 [facility] Comment on above: Performed By: #### H S TROP, CUBLD, LACTIC, CBC, CMP, PTT, PT, BNP ####[address] Chloride [Moles/Vol] 86 mmol/L Low 98-107 [facility] Comment on above: Performed By: #### H S TROP, CUBLD, LACTIC, CBC, CMP, PTT, PT, BNP ####[address] CO2 [Moles/Vol] 25.8 mmol/L Normal 21.0-31.0 [facility] Comment on above: Performed By: #### H S TROP, CUBLD, LACTIC, CBC, CMP, PTT, PT, BNP ####[address] Creatinine [Mass/Vol] 4.76 mg/dL High 0.60-1.[address] [facility] Comment on above: Performed By: #### H S TROP, CUBLD, LACTIC, CBC, CMP, PTT, PT, BNP ####[place] [id number] Creatinine Clr Calc Pharmacy 8.82 [facility] Comment on above: Result Comment: PERF ORMED BY:[address] [place], [place] [id number] MEDICAL DIRECTORRAMEZ LARSON M.D. Performed By: #### H S TROP, CUBLD, LACTIC, CBC, CMP, PTT, PT, BNP ####[address] GFR/1.73 sq M.predicted MDRD (S/P/Bld) [Vol rate/Area] 9.034 mL/min/{1.73_m2} [facility] Comment on above: Performed By: #### H S TROP, CUBLD, LACTIC, CBC, CMP, PTT, PT, BNP ####[place] [id number] [address] Globulin (S) [Mass/Vol] 3.7 g/dL [facility] Comment on above: Performed By: #### H S TROP, CUBLD, LACTIC, CBC, CMP, PTT, PT, BNP ####[address] Glucose [Mass/Vol] 144 mg/dL High 70-100 [facility] Comment on above: Result Comment: [place] Glucose Reference Range is dependent on time and content of last meal. Glucose of more than 200 mg/dL in a nonstressed, ambulatory subject supports the diagnosis of Diabetes Mellitus. ADA recommended reference range Performed By: #### H S TROP, CUBLD, LACTIC, CBC, CMP, PTT, PT, BNP ####[address] Potassium [Moles/Vol] 4.2 mmol/L Normal 3.5-5.[address] [facility] Comment on above: Performed By: #### H S TROP, CUBLD, LACTIC, CBC, CMP, PTT, PT, BNP ####[place] [address] [address] Protein [Mass/Vol] 6.9 g/dL Normal 6.4-8.9 [facility] Comment on above: Performed By: #### H S TROP, CUBLD, LACTIC, CBC, CMP, PTT, PT, BNP ####[place] [id number] [facility] Sodium [Moles/Vol] 126 mmol/L Low 136-145 [facility] Comment on above: Performed By: #### H S TROP, CUBLD, LACTIC, CBC, CMP, PTT, PT, BNP ####[address] Urea nitrogen [Mass/Vol] 76 mg/dL High 7-25 [facility] Comment on above: Performed By: #### H S TROP, CUBLD, LACTIC, CBC, CMP, PTT, PT, BNP ####[place] [id number] [facility] ECG 12 lead ECGon 12-30-2022 ECG 12 lead ECG Normal [facility] Fecal occult blood detection by immunochemistryOrdered By: Carlton Mtz on 12-30-2022 Hemoglobin.gastrointest inal Ql (Stl) [facility] Ferritinon 12-30-2022 Ferritin [Mass/Vol] 2214.0 ng/mL High 11.0-306.[address] [facility] Comment on above: Performed By: #### V [id number], RETIC, A1C WTH eA, CMP, FE and TIBC, MAURICIO, CBC, LDH ####[place] [id number] [facility] Ferritin [Mass/volume] in Se rum or PlasmaOrdered By: Carlton Mtz on 12-30-2022 Ferritin [Mass/Vol] 2214.0 ng/mL 11.0-306.[address] [facility] Folate [Mass/volume] in Seru m or PlasmaOrdered By: Carlton Mtz on 12-30-2022 Folate [Mass/Vol] 14.8 ng/mL >5.9 [facility] Comment on above: Folate reference ran ge: >5.9 ng/mlThe WHO technical consultation on folate and vitamin [id number] has determined that folate concentrations lessthan 4 ng/ml are considered deficient. Glucose Poct Glucometerson 1 03-01-2022 Commemt1 Glu2: [facility] Comment on above: Performed By: #### G LULS ####Point of Care testing, Commemt2 SLIDING SCALE COVERA [facility] Comment on above: Result Comment: PERF ORMED BY:[place] [address] [place], [place] [phone] MEDICAL DIRECTORRAMEZ LARSON M.D. Performed By: #### G LULS ####Point of Care testing, Glucose [Mass/Vol] 183 mg/dL Normal [facility] Comment on above: Result Comment: [facility][note 3] Glucose Reference Range is dependent on time and content of last meal. Glucose of more than 200 mg/dL in a nonstressed, ambulatory subject supports the diagnosis of Diabetes Mellitus. Performed By: #### G LULS ####Point of Care testing, Glucose [Mass/Vol] 157 mg/dL Normal [facility] Comment on above: Result Comment: [facility][note 3] Glucose Reference Range is dependent on time and content of last meal. Glucose of more than 200 mg/dL in a nonstressed, ambulatory subject supports the diagnosis of Diabetes Mellitus.PERFORMED BY:[facility] [place], [place] [phone] MEDICAL DIRECTORRAMEZ LARSON M.D. Performed By: #### G LULS ####Point of Care testing, Commemt1 Glu2: [facility] Comment on above: Result Comment: PERF ORMED BY:[place] [address] [address] [place], [place] [phone] MEDICAL DIRECTORRAMEZ LARSON M.D. Performed By: #### G DAVID ####Point of Care testing, Glucose [Mass/Vol] 137 mg/dL Normal [facility] Comment on above: Result Comment: [facility][note 3] Glucose Reference Range is dependent on time and content of last meal. Glucose of more than 200 mg/dL in a nonstressed, ambulatory subject supports the diagnosis of Diabetes Mellitus. Performed By: #### G DAVID ####Point of Care testing, Glucose mean value [Mass/vol ume] in Blood Estimated from glycated hemoglobinOrdered By: Carlton Mtz on 12-30-2022 Average glucose Estimated from glycated hemoglobin (Bld) [Mass/Vol] 171 mg/dL [facility] Hemoglobin A1c percentageOrd ered By: Carlton Mtz on 12-30-2022 HbA1c (Bld) [Mass fraction] 7.6 % 4.3-5.6 [facility] Comment on above: Increased risk for d iabetes: 5.7 - 6.4diabetes: >6.4glycemic control for adults with diabetes: <7.0 Iron [Mass/volume] in Serum or PlasmaOrdered By: Carlton Mtz on 12-30-2022 Iron [Mass/Vol] 27 ug/dL 50-212 [facility] Iron and TIBC Profileon 12-12 0-2022 % Iron Saturation 19.4 % Low 20-50 [facility] Comment on above: Performed By: #### V [id number], RETIC, A1C WTH eA, CMP, FE and TIBC, MAURICIO, CBC, LDH ####[facility] [address] [place] [address] [place] Iron [Mass/Vol] 27 ug/dL Low 50-212 [facility] Comment on above: Performed By: #### V [id number], RETIC, A1C WTH eA, CMP, FE and TIBC, MAURICIO, CBC, LDH ####[facility] [id number] [place] [address] [facility] Total Iron Binding Capacity 139 ug/dL Low 255-450 [facility] Comment on above: Performed By: #### V [id number], RETIC, A1C WTH eA, CMP, FE and TIBC, MAURICIO, CBC, LDH ####[facility] [place] [id number] [facility] Transferrin [Mass/Vol] 99 mg/dL Low 203-362 [facility] Comment on above: Performed By: #### V [id number], RETIC, A1C WTH eA, CMP, FE and TIBC, MAURICIO, CBC, LDH ####[place] [id number] [facility] Iron binding capacity [Mass/ volume] in Serum or PlasmaOrdered By: Carlton Mtz on 12-30-2022 Iron binding capacity [Mass/Vol] 139 ug/dL 255-450 [facility] Iron saturation [Mass Fracti on] in Serum or PlasmaOrdered By: Carlton Mtz on 12-30-2022 Iron saturation [Mass fraction] 19.4 % 20-50 [facility] LDH Lactate Dehydrogenaseon 12-30-2022 LDH Lactate Dehydrogenase 127 U/L Low 140-271 [facility] Comment on above: Performed By: #### V [id number], RETIC, A1C WTH eA, CMP, FE and TIBC, MAURICIO, CBC, LDH ####[address] Lactate dehydrogenase [Enzym atic activity/volume] in Serum or Plasma by Lactate to pyOrdered By: Carlton Mtz on 12-30-2022 LDH Lactate to pyruvate reaction [Catalytic activity/Vol] 127 U/L 140-271 [facility] Lactic Acidon 12-30-2022 Lactate [Moles/Vol] 1.0 mmol/L Normal 0.5-2.2 [facility] Comment on above: Result Comment: PERF ORMED BY:[address] [place], [place] [phone] MEDICAL DIRECTORRAMEZ LARSON M.D. Performed By: #### H S TROP, CUBLD, LACTIC, CBC, CMP, PTT, PT, BNP ####[address] No Panel InformationOrdered By: Tatiana Loya on 12-30-2022 Bedside Glucose #2 Comment Sliding scale covera [facility] Partial Thromboplastin Timeo n 12-30-2022 aPTT Coag (Bld) [Time] 27.1 s Normal 25.1-36.5 [facility] Comment on above: Result Comment: A he matocrit value greater than 55% may lead to inaccurate results in coagulation testing. Patients having hematocrit values >55% require a special collection tube for coagulation studies. Please contact the laboratory at [phone] for redraw instructions.PERFORMED BY:[address] [place], [place] [phone] MEDICAL DIRECTORRAMEZ LARSON M.D. Performed By: #### H S TROP, CUBLD, LACTIC, CBC, CMP, PTT, PT, BNP ####[place] [id number] [facility] Prothrombin Time INRon 12-30 INR Coag (PPP) [Relative time] 1.0 {INR} Normal [facility] Comment on above: Result Comment: INR Therapeutic [...] Performed By: #### H S TROP, CUBLD, LACTIC, CBC, CMP, PTT, PT, BNP ####[address] [address] [facility] PT Coag (PPP) [Time] 12.2 s Normal 9.0-12.9 [facility] Comment on above: Result Comment: A he matocrit value greater than 55% may lead to inaccurate results in coagulation testing. Patients having hematocrit values >55% require a special collection tube for coagulation studies. Please contact the laboratory at [phone] for redraw instructions. Performed By: #### H S TROP, CUBLD, LACTIC, CBC, CMP, PTT, PT, BNP ####[place] [address] [place] [id number] [place] Respiratory (Upper) Panel, P CRon 12-30-2022 Respiratory (Upper) Panel, PCR Normal [facility] Comment on above: Performed By: #### B IOFIRECOVNOTDE, RESP PANEL UPP. ####[address] Respiratory pathogens DNA an d RNA panel - Nasopharynx by MADISON with non-probe detectionOrdered By: Carlton Mtz on 12-30-2022 Respiratory pathogens DNA and RNA panel M[place]ISON+non-probe (Nph) [facility] Reticulocyte Counton 023 Reticulocyte Number 0.052 10*6/uL Normal 0.024-0.084 [facility] Comment on above: Result Comment: PERF ORMED BY:[address] [place], [place] [phone] MEDICAL DIRECTORRAMEZ LARSON M.D. Performed By: #### V [id number], RETIC, A1C WTH eA, CMP, FE and TIBC, MAURICIO, CBC, LDH ####[address] Reticulocyte Percent 1.7 % High 0.5-1.5 [facility] Comment on above: Performed By: #### V [id number], RETIC, A1C WTH eA, CMP, FE and TIBC, MAURICIO, CBC, LDH ####[address] Reticulocytes/100 RBC Auto ( Bld)Ordered By: Carlton Mtz on 12-30-2022 Reticulocytes/100 RBC (Bld) 1.7 % 0.5-1.5 [facility] Stool Occult Blood (Guaiac)o n 12-30-2022 Stool Occult Blood (Guaiac) Normal [facility] Comment on above: Performed By: #### O B(GUAIAC) ####[address] Transferrin [Mass/volume] in Serum or PlasmaOrdered By: Carlton Mtz on 12-30-2022 Transferrin [Mass/Vol] 99 mg/dL 203-362 [facility] Troponin I High Sensitivityo n 12-30-2022 Troponin I High Sensitivity 24.0 pg/mL High 0.0-15.0 [facility] Comment on above: Result Comment: PERF ORMED BY:[place] [address] [address] [place], [place] [phone] MEDICAL DIRECTORRAMEZ LARSON M.D. Performed By: #### H S TROP, CUBLD, LACTIC, CBC, CMP, PTT, PT, BNP ####[address] [address] [facility] Type and Screenon 12-30-2022 ABO and Rh group Nom (Bld) Blood group O Rh(D) positive Normal [facility] Comment on above: Result Comment: PERF ORMED BY:[place] [address] [place], [place] [phone] MEDICAL MAJOR LARSON M.D. US liveron 12-30-2022 US liver Normal [facility] Vit. B12/Folate Profileon Cobalamin (Vitamin B12) [Mass/Vol] 559 pg/mL Normal 180-914 [facility] Comment on above: Performed By: #### V [id number], RETIC, A1C WTH eA, CMP, FE and TIBC, MAURICIO, CBC, LDH ####[address] [address] [facility] Folate 14.8 ng/mL Normal >5.9 [facility] Comment on above: Result Comment: [place] te reference range: >5.9 ng/ml The WHO technical consultation on folate and vitamin b12 deficiencies has determined that folate concentrations less than 4 ng/ml are considered deficient.PERFORMED BY:[place] [address] [address] [place], [place] [phone] MEDICAL DIRECTORRAMEZ LARSON M.D. Performed By: #### V [id number], RETIC, A1C WTH eA, CMP, FE and TIBC, MAURICIO, CBC, LDH ####[facility] [address] [place] [id number] [facility] Vitamin B12 ser/plasOrdered By: Carlton Mtz on 12-30-2022 Cobalamin (Vitamin B12) [Mass/Vol] 559 pg/mL 180-914 [facility] XR abdomen 1Von 12-30-2022 XR abdomen 1V Normal [facility] XR chest 1V portableon 12-30 XR chest 1V portable Normal [facility] Activated partial thrombopla stin time (aPTT) in platelet poor plasma by coagulation aOrdered By: Azar Palmer on 12-29-2022 aPTT Coag (PPP) [Time] 27.1 s 25.1-36.5 [facility] Comment on above: A hematocrit value g reater than 55% may lead to inaccurate results in coagulation testing. Patients having hematocrit values >55% require a special collection tube for coagulation studies. Please contact the laboratory at [phone] for redraw instructions. Alanine aminotransferase [En zymatic activity/volume] in Serum or PlasmaOrdered By: Azar Palmer on 12-29-2022 ALT [Catalytic activity/Vol] 26 U/L 7-52 [facility] Albumin [Mass/volume] in Ser um or Plasma by Bromocresol green (BCG) dye binding methoOrdered By: Azar Palmer on 12-29-2022 Albumin BCG dye [Mass/Vol] 3.2 g/dL 3.5-5.7 [facility] Alkaline phosphatase [Enzyma tic activity/volume] in Serum or PlasmaOrdered By: Azar Palmer on 12-29-2022 ALP [Catalytic activity/Vol] 146 U/L 34-104 [facility] Aspartate aminotransferase [ Enzymatic activity/volume] in Serum or PlasmaOrdered By: Azar Palmer on 12-29-2022 AST [Catalytic activity/Vol] 21 U/L 13-39 [facility] Bacterial blood cultureOrder ed By: Azar Palmer on 12-29-2022 Bacteria identified Cx Nom (Bld) NO GROWTH 5 DAYS [facility] Bacteria identified Cx Nom (Bld) NO GROWTH 5 DAYS [facility] Basophils Auto (Bld) [#/Vol] Ordered By: Azar Palmer on 12-29-2022 Basophils (Bld) [#/Vol] 0.0 10*3/uL 0.0-0.2 [facility] Basophils/100 WBC Auto (Bld) Ordered By: Azar Palmer on 12-29-2022 Basophils/100 WBC (Bld) 0.3 % . [facility] Bilirubin.total [Mass/volume ] in Serum or PlasmaOrdered By: Azar Palmer on 12-29-2022 Bilirubin [Mass/Vol] 0.4 mg/dL 0.3-1.0 [facility] COVID CepheidOrdered By: Mango Palmer on 12-29-2022 SARS-CoV-2 (COVID-19) Ab IA Ql Negative Negative [facility] Comment on above: This is a duplicate avox Xpert Xpress CoV-2/Flu/RSV Plus RNA by RT-PCR result to be used for statistical tracking purpose only. SARS-CoV-2 (COVID-19) RNA MADISON+probe Ql (Unsp spec) [facility] Calcium [Mass/volume] in Ser um or PlasmaOrdered By: Azar Palmer on 12-29-2022 Calcium [Mass/Vol] 10.2 mg/dL 8.6-10.3 [facility] Carbon dioxide, total [Moles /volume] in Serum or PlasmaOrdered By: Azar Palmer on 12-29-2022 CO2 [Moles/Vol] 25.8 mmol/L 21.0-31.0 [facility] Chloride [Moles/volume] in S steffanie or PlasmaOrdered By: Azar Palmer on 12-29-2022 Chloride [Moles/Vol] 86 mmol/L 98-107 [facility] Creatinine [Mass/volume] in Serum or PlasmaOrdered By: Azar Palmer on 12-29-2022 Creatinine [Mass/Vol] 4.76 mg/dL 0.60-1.[address] [facility] Eosinophils Auto (Bld) [#/Vo l]Ordered By: Azar Palmer on 12-29-2022 Eosinophils (Bld) [#/Vol] 0.1 10*3/uL 0.0-0.45 [facility] Eosinophils/100 WBC Auto (Bl d)Ordered By: Azar Palmer on 12-29-2022 Eosinophils/100 WBC (Bld) 1.0 % . [facility] Erythrocyte distribution wid th Auto (RBC) [Ratio]Ordered By: Azar Palmer on 12-29-2022 Erythrocyte distribution width (RBC) [Ratio] 17.6 % 11.9-15.3 [facility] Globulin Calc (S) [Mass/Vol] Ordered By: Azar Palmer on 12-29-2022 Globulin (S) [Mass/Vol] 3.7 g/dL [facility] Glucose [Mass/volume] in Ser um or PlasmaOrdered By: Azar Palmer on 12-29-2022 Glucose [Mass/Vol] 144 mg/dL 70-100 [facility] Comment on above: ADA recommended refe rence rangeRandom Glucose Reference Range is dependent on time and content of last meal. Glucose of more than 200 mg/dL in a nonstressed, ambulatory subject supports the diagnosis of Diabetes Mellitus. Hematocrit Auto (Bld) [Volum e fraction]Ordered By: Azar Palmer on 12-29-2022 Hematocrit (Bld) [Volume fraction] 27.8 % 34.0-46.4 [facility] Hemoglobin [Mass/volume] in BloodOrdered By: Azar Palmer on 12-29-2022 Hemoglobin (Bld) [Mass/Vol] 8.8 g/dL 11.8-15.4 [facility] INR in Platelet poor plasma by Coagulation assayOrdered By: Azar Palmer on 12-29-2022 INR Coag (PPP) [Relative time] 1.0 {INR} [facility] Comment on above: INR Therapeutic Rang e [...] on 12-29-2022 Lactate [Moles/Vol] 1.0 mmol/L 0.5-2.2 [facility] Leukocytes [#/volume] correc tr for nucleated erythrocytes in Blood by Automated counOrdered By: Azar Palmer on 12-29-2022 WBC corrected for nucl RBC Auto (Bld) [#/Vol] 9.6 10*3/uL 3.8-11.6 [facility] Lymphocytes Auto (Bld) [#/Vo l]Ordered By: Azar Palmer on 12-29-2022 Lymphocytes (Bld) [#/Vol] 1.2 10*3/uL 1.00-4.8 [facility] Lymphocytes/100 WBC Auto (Bl d)Ordered By: Azar Palmer on 12-29-2022 Lymphocytes/100 WBC (Bld) 12.9 % . [facility] MCH Auto (RBC) [Entitic mass ]Ordered By: Azar Palmer on 12-29-2022 MCH (RBC) [Entitic mass] 28.4 pg 24.7-34.3 [facility] MCHC Auto (RBC) [Mass/Vol]Or dered By: Azar Palmer on 12-29-2022 MCHC (RBC) [Mass/Vol] 31.7 g/dL 32.0-35.[address] [facility] MCV Auto (RBC) [Entitic vol] Ordered By: Azar Palmer on 12-29-2022 MCV (RBC) [Entitic vol] 89.6 fL 80-100 [facility] Monocyte distribution width [Entitic volume] in Blood by AutomatedOrdered By: Azar Palmer on 12-29-2022 Monocyte distribution width Auto (Bld) [Entitic vol] 23.39 % 0.00-20.00 [facility] Comment on above: For adults in ED, MD W > 20.0 may be associated with a higher risk of sepsis during the first 12 hrs of hospital admission Monocytes Auto (Bld) [#/Vol] Ordered By: Azar Palmer on 12-29-2022 Monocytes (Bld) [#/Vol] 1.3 10*3/uL 0.0-0.8 [facility] Monocytes/100 WBC Auto (Bld) Ordered By: Azar Palmer on 12-29-2022 Monocytes/100 WBC (Bld) 13.9 % . [facility] Natriuretic peptide B [Mass/ Vol]Ordered By: Azar Palmer on 12-29-2022 Natriuretic peptide B (Bld) [Mass/Vol] 1358.0 pg/mL 5-100 [facility] Neutrophils Auto (Bld) [#/Vo l]Ordered By: Azar Palmer on 12-29-2022 Neutrophils (Bld) [#/Vol] 6.9 10*3/uL 1.8-7.7 [facility] Neutrophils/100 WBC Auto (Bl d)Ordered By: Azar Palmer on 12-29-2022 Neutrophils/100 WBC (Bld) 71.9 % . [facility] No Panel InformationOrdered By: Azar Palmer on 12-29-2022 Estimated GFR (CKD-EPI) 9.034 mL/Min [facility] Creatinine Clearance (Chem 8.82 [facility] Nucleated erythrocytes [Pres ence] in Blood by Automated countOrdered By: Azar Palmer on 12-29-2022 Nucleated RBC Auto Ql (Bld) 0.0 /100{WBC} 0-0.5 [facility] Platelet mean volume Auto (B ld) [Entitic vol]Ordered By: Azar Palmer on 12-29-2022 Platelet mean volume (Bld) [Entitic vol] 7.2 fL 6.3-10.7 [facility] Platelets Auto (Bld) [#/Vol] Ordered By: Azar Palmer on 12-29-2022 Platelets (Bld) [#/Vol] 397 10*3/uL 150-450 [facility] Potassium [Moles/volume] in Serum or PlasmaOrdered By: Azar Palmer on 12-29-2022 Potassium [Moles/Vol] 4.2 mmol/L 3.5-5.[address] [facility] Protein [Mass/volume] in Ser um or PlasmaOrdered By: Azar Palmer on 12-29-2022 Protein [Mass/Vol] 6.9 g/dL 6.4-8.9 [facility] Prothrombin time (PT)Ordered By: Azar Palmer on 12-29-2022 PT Coag (PPP) [Time] 12.2 s 9.0-12.9 [facility] Comment on above: A hematocrit value g reater than 55% may lead to inaccurate results in coagulation testing. Patients having hematocrit values >55% require a special collection tube for coagulation studies. Please contact the laboratory at [phone] for redraw instructions. RBC Auto (Bld) [#/Vol]Ordere d By: Azar Palmer on 12-29-2022 RBC (Bld) [#/Vol] 3.10 10*6/uL 3.60-5.00 [facility] Serum or plasma albumin/glob ulin mass ratioOrdered By: Azar Palmer on 12-29-2022 Albumin/Globulin [Mass ratio] 0.9 {ratio} [facility] Serum or plasma anion gap de terminationOrdered By: Azar Palmer on 12-29-2022 Anion gap [Moles/Vol] 18.4 mmol/L 6.0-15.0 [facility] Sodium [Moles/volume] in Ser um or PlasmaOrdered By: Azar Palmer on 12-29-2022 Sodium [Moles/Vol] 126 mmol/L 136-145 [facility] Troponin I.cardiac [Mass/vol ume] in Serum or Plasma by Detection limit <= 0.01 ng/Ordered By: Azar Palmer on 12-29-2022 Troponin I.cardiac DL <= 0.01 ng/mL [Mass/Vol] 24.0 pg/mL 0.0-15.0 [facility] Urea nitrogen [Mass/volume] in Serum or PlasmaOrdered By: Azar Palmer on 12-29-2022 Urea nitrogen [Mass/Vol] 76 mg/dL 7-25 [facility] WBC Auto (Bld) [#/Vol]Ordere d By: Azar Palmer on 12-29-2022 WBC (Bld) [#/Vol] 9.6 10*3/uL 3.8-11.6 [facility] Office Visiton 12-26-2022 Follow-up visit [id number] Wilbert Wilson 1945 F Date Provider Department Center 12/26/2022 Ismael-CHELI LUTZ CARD [facility] No family history on file Level of Service:04065 [place] OFFICE/OUTPATIENT ESTABLISHED MOD MDM 30-39 MIN Normal [facility] US PVR Lower EXT Complete Bi laton [...] Turpin M.D. Transcribed by: YENIFER Technologist: HW [facility] Consent for Treatmenton 12-11 Consent for Treatment [id number] F [facility] Physician Orderon 12-19-2022 Physician Order [id number] F [facility] Glucose Glucometer (BldC) [M ass/Vol]Ordered By: Annette Tenorio on 12-16-2022 Glucose [Mass/Vol] 231 mg/dL [facility] Comment on above: Random Glucose Refer ence Range is dependent on time and content of last meal. Glucose of more than 200 mg/dL in a nonstressed, ambulatory subject supports the diagnosis of Diabetes Mellitus. Glucose Poct Glucometerson 1 02-15-2022 Glucose [Mass/Vol] 231 mg/dL Normal [facility] Comment on above: Result Comment: [place] Glucose Reference Range is dependent on time and content of last meal. Glucose of more than 200 mg/dL in a nonstressed, ambulatory subject supports the diagnosis of Diabetes Mellitus.PERFORMED BY:[place] [address] [address] [place], [place] [phone] MEDICAL DIRECTORRAMEZ LARSON M.D. Performed By: #### G LULS ####Point of Care testing, Glucose [Mass/Vol] 138 mg/dL Normal [facility] Comment on above: Result Comment: [facility][note 3] Glucose Reference Range is dependent on time and content of last meal. Glucose of more than 200 mg/dL in a nonstressed, ambulatory subject supports the diagnosis of Diabetes Mellitus.PERFORMED BY:[place] [address] [place], [place] [phone] MEDICAL MAJOR LARSON M.D. Performed By: #### G LULS ####Point of Care testing, Glucose [Mass/Vol] 208 mg/dL [facility] [facility] Comment on above: Result Comment: [facility][note 3] Glucose Reference Range is dependent on time and content of last meal. Glucose of more than 200 mg/dL in a nonstressed, ambulatory subject supports the diagnosis of Diabetes Mellitus.PERFORMED BY:[place] [address] [place], [place] [phone] MEDICAL DIRECTORRAMEZ LARSON M.D. Performed By: #### G LULS ####Point of Care testing, Basic Metabolic Panelon 11-0 Anion gap [Moles/Vol] 18.3 mmol/L High 6.0-15.0 [facility] Comment on above: Performed By: #### B MP, CBC, MG ####[place] [id number] [facility] Calcium [Mass/Vol] 8.9 mg/dL Normal 8.6-10.3 [facility] Comment on above: Performed By: #### B MP, CBC, MG ####[place] [id number] [facility] Chloride [Moles/Vol] 91 mmol/L Low 98-107 [facility] Comment on above: Performed By: #### B MP, CBC, MG ####[place] [id number] [facility] CO2 [Moles/Vol] 24.1 mmol/L Normal 21.0-31.0 [facility] Comment on above: Performed By: #### B MP, CBC, MG ####[place] [id number] [facility] Creatinine [Mass/Vol] 4.59 mg/dL Significan t change up 0.60-1.20 [facility] Comment on above: Performed By: #### B MP, CBC, MG ####[place] [id number] [facility] Creatinine Clr Calc Pharmacy 9.14 [facility] Comment on above: Result Comment: PERF ORMED BY:[address] [place], [place] [phone] MEDICAL MAJOR LARSON M.D. Performed By: #### B MP, CBC, MG ####[place] [id number] [facility] GFR/1.73 sq M.predicted MDRD (S/P/Bld) [Vol rate/Area] 9.437 mL/min/{1.73_m2} [facility] Comment on above: Performed By: #### B MP, CBC, MG ####[place] [id number] [facility] Glucose [Mass/Vol] 181 mg/dL Significant change up 70-100 [facility] Comment on above: Result Comment: [place] Glucose Reference Range is dependent on time and content of last meal. Glucose of more than 200 mg/dL in a nonstressed, ambulatory subject supports the diagnosis of Diabetes Mellitus. ADA recommended reference range Performed By: #### B MP, CBC, MG ####[facility] [address] [place] [id number] [facility] Potassium [Moles/Vol] 4.4 mmol/L Normal 3.5-5.[address] [facility] Comment on above: Performed By: #### B MP, CBC, MG ####[facility] [address] [place] [id number] [facility] Sodium [Moles/Vol] 129 mmol/L Low 136-145 [facility] Comment on above: Performed By: #### B MP, CBC, MG ####[facility] Mfa[address] [place] [id number] [facility] Urea nitrogen [Mass/Vol] 70 mg/dL High 7-25 [facility] Comment on above: Performed By: #### B MP, CBC, MG ####[facility] [id number] [place] [id number] [facility] Basophils Auto (Bld) [#/Vol] Ordered By: Erica Armenta on 12-15-2022 Basophils (Bld) [#/Vol] 0.0 10*3/uL 0.0-0.2 [facility] Basophils/100 WBC Auto (Bld) Ordered By: Erica Armenta on 12-15-2022 Basophils/100 WBC (Bld) 0.3 % . [facility] Calcium [Mass/volume] in Ser um or PlasmaOrdered By: Erica Armenta on 12-15-2022 Calcium [Mass/Vol] 8.9 mg/dL 8.6-10.3 [facility] Carbon dioxide, total [Moles /volume] in Serum or PlasmaOrdered By: Erica Armenta on 12-15-2022 CO2 [Moles/Vol] 24.1 mmol/L 21.0-31.0 [facility] Chloride [Moles/volume] in S steffanie or PlasmaOrdered By: Erica Armenta on 12-15-2022 Chloride [Moles/Vol] 91 mmol/L 98-107 [facility] Complete Blood Count Auto Di ffon 12-15-2022 Basophils (Bld) [#/Vol] 0.0 10*3/uL Normal 0.0-0.2 [facility] Comment on above: Result Comment: PERF ORMED BY:[address] [place], [place] [phone] MEDICAL DIRECTORRAMEZ LARSON M.D. Performed By: #### B MP, CBC, MG ####[address] Basophils/100 WBC (Bld) 0.3 % Normal . [facility] Comment on above: Performed By: #### B MP, CBC, MG ####[address] Eosinophils (Bld) [#/Vol] 0.2 10*3/uL Normal 0.0-0.45 [facility] Comment on above: Performed By: #### B MP, CBC, MG ####[address] Eosinophils/100 WBC (Bld) 1.5 % Normal . [facility] Comment on above: Performed By: #### B MP, CBC, MG ####[address] Erythrocyte distribution width (RBC) [Ratio] 17.6 % High 11.9-15.3 [facility] Comment on above: Performed By: #### B MP, CBC, MG ####[place] [id number] [facility] Hematocrit (Bld) [Volume fraction] 33.1 % Low 34.0-46.4 [facility] Comment on above: Performed By: #### B MP, CBC, MG ####[address] Hemoglobin (Bld) [Mass/Vol] 10.4 g/dL Low 11.8-15.4 [facility] Comment on above: Performed By: #### B MP, CBC, MG ####[address] Lymphocytes (Bld) [#/Vol] 1.1 10*3/uL Normal 1.00-4.8 [facility] Comment on above: Performed By: #### B MP, CBC, MG ####[address] Lymphocytes/100 WBC (Bld) 10.4 % Normal . [facility] Comment on above: Performed By: #### B MP, CBC, MG ####[address] MCH (RBC) [Entitic mass] 28.7 pg Normal 24.7-34.3 [facility] Comment on above: Performed By: #### B MP, CBC, MG ####[address] MCV (RBC) [Entitic vol] 91.4 fL Normal 80-100 [facility] Comment on above: Performed By: #### B MP, CBC, MG ####[address] Mean Corpuscular HGB Conc 31.4 g/dL Low 32.0-35.0 [facility] Comment on above: Performed By: #### B MP, CBC, MG ####[address] Monocytes (Bld) [#/Vol] 0.9 10*3/uL High 0.0-0.8 [facility] Comment on above: Performed By: #### B MP, CBC, MG ####[address] Monocytes/100 WBC (Bld) 8.5 % Normal . [facility] Comment on above: Performed By: #### B MP, CBC, MG ####[address] Neutrophils (Bld) [#/Vol] 8.5 10*3/uL High 1.8-7.7 [facility] Comment on above: Performed By: #### B MP, CBC, MG ####[place] [id number] [facility] Neutrophils/100 WBC (Bld) 79.3 % Normal . [facility] Comment on above: Performed By: #### B MP, CBC, MG ####[place] [id number] [facility] NRBC% 0.0 /100{WBC} Normal 0-0.5 [facility] Comment on above: Performed By: #### B MP, CBC, MG ####[address] Platelet mean volume (Bld) [Entitic vol] 7.5 fL Normal 6.3-10.7 [facility] Comment on above: Performed By: #### B MP, CBC, MG ####[place] [id number] [facility] Platelets (Bld) [#/Vol] 305 10*3/uL Normal 150-450 [facility] Comment on above: Performed By: #### B MP, CBC, MG ####[place] [id number] [facility] RBC (Bld) [#/Vol] 3.63 10*6/uL Normal 3.60-5.00 [facility] Comment on above: Performed By: #### B MP, CBC, MG ####[place] [id number] [facility] WBC (Bld) [#/Vol] 10.7 10*3/uL Normal 3.8-11.6 [facility] Comment on above: Performed By: #### B MP, CBC, MG ####[place] [id number] [facility] Creatinine [Mass/volume] in Serum or PlasmaOrdered By: Erica Armenta on 12-15-2022 Creatinine [Mass/Vol] 4.59 mg/dL 0.60-1.[address] [facility] Comment on above: Delta: 3.37 on 12/14 Eosinophils Auto (Bld) [#/Vo l]Ordered By: Erica Armenta on 12-15-2022 Eosinophils (Bld) [#/Vol] 0.2 10*3/uL 0.0-0.45 [facility] Eosinophils/100 WBC Auto (Bl d)Ordered By: Erica Armenta on 12-15-2022 Eosinophils/100 WBC (Bld) 1.5 % . [facility] Erythrocyte distribution wid th Auto (RBC) [Ratio]Ordered By: Erica Armenta on 12-15-2022 Erythrocyte distribution width (RBC) [Ratio] 17.6 % 11.9-15.3 [facility] Glucose Poct Glucometerson 1 02-14-2022 Commemt1 Glu2: Cleaned Meter Normal [facility] Comment on above: Result Comment: PERF ORMED BY:[place] [address] [place], [place] [phone] MEDICAL DIRECTORRAMEZ LARSON M.D. Performed By: #### G LULS ####Point of Care testing, Glucose [Mass/Vol] 189 mg/dL Normal [facility] Comment on above: Result Comment: [place] Glucose Reference Range is dependent on time and content of last meal. Glucose of more than 200 mg/dL in a nonstressed, ambulatory subject supports the diagnosis of Diabetes Mellitus. Performed By: #### G LULS ####Point of Care testing, Glucose [Mass/Vol] 172 mg/dL Normal [facility] Comment on above: Result Comment: [place] om Glucose Reference Range is dependent on time and content of last meal. Glucose of more than 200 mg/dL in a nonstressed, ambulatory subject supports the diagnosis of Diabetes Mellitus.PERFORMED BY:[place] [address] [place], [place] [phone] MEDICAL DIRECTORRAMEZ LARSON M.D. Performed By: #### G LULS ####Point of Care testing, Commemt1 Glu2: Cleaned Meter [facility] Comment on above: Result Comment: PERF ORMED BY:[place] [address] [place], [place] [phone] MEDICAL DIRECTORRAMEZ LARSON M.D. Performed By: #### G LULS ####Point of Care testing, Glucose [Mass/Vol] 168 mg/dL Normal [facility] Comment on above: Result Comment: [place] om Glucose Reference Range is dependent on time and content of last meal. Glucose of more than 200 mg/dL in a nonstressed, ambulatory subject supports the diagnosis of Diabetes Mellitus. Performed By: #### G LULS ####Point of Care testing, Commemt1 Glu2: Cleaned Meter [facility] Comment on above: Result Comment: PERF ORMED BY:[address] [place], [place] [phone] MEDICAL DIRECTORRAMEZ LARSON M.D. Performed By: #### G LULS ####Point of Care testing, Glucose [Mass/Vol] 150 mg/dL Normal [facility] Comment on above: Result Comment: [place] om Glucose Reference Range is dependent on time and content of last meal. Glucose of more than 200 mg/dL in a nonstressed, ambulatory subject supports the diagnosis of Diabetes Mellitus. Performed By: #### G LULS ####Point of Care testing, Glucose [Mass/volume] in Ser um or PlasmaOrdered By: Erica Armenta on 12-15-2022 Glucose [Mass/Vol] 181 mg/dL 70-100 [facility] Comment on above: Delta: 317 on [id number] recommended reference rangeRandom Glucose Reference Range is dependent on time and content of last meal. Glucose of more than 200 mg/dL in a nonstressed, ambulatory subject supports the diagnosis of Diabetes Mellitus. Hematocrit Auto (Bld) [Volum e fraction]Ordered By: Erica Armenta on 12-15-2022 Hematocrit (Bld) [Volume fraction] 33.1 % 34.0-46.4 [facility] Hemoglobin [Mass/volume] in BloodOrdered By: Erica Armenta on 12-15-2022 Hemoglobin (Bld) [Mass/Vol] 10.4 g/dL 11.8-15.4 [facility] Leukocytes [#/volume] correc tr for nucleated erythrocytes in Blood by Automated counOrdered By: Erica Armenta on 12-15-2022 WBC corrected for nucl RBC Auto (Bld) [#/Vol] 10.7 10*3/uL 3.8-11.6 [facility] Lymphocytes Auto (Bld) [#/Vo l]Ordered By: Erica Armenta on 12-15-2022 Lymphocytes (Bld) [#/Vol] 1.1 10*3/uL 1.00-4.8 [facility] Lymphocytes/100 WBC Auto (Bl d)Ordered By: Erica Armenta on 12-15-2022 Lymphocytes/100 WBC (Bld) 10.4 % . [facility] MCH Auto (RBC) [Entitic mass ]Ordered By: Erica Armenta on 12-15-2022 MCH (RBC) [Entitic mass] 28.7 pg 24.7-34.3 [facility] MCHC Auto (RBC) [Mass/Vol]Or dered By: Erica Armenta on 12-15-2022 MCHC (RBC) [Mass/Vol] 31.4 g/dL 32.0-35.[address] [facility] MCV Auto (RBC) [Entitic vol] Ordered By: Erica Armenta on 12-15-2022 MCV (RBC) [Entitic vol] 91.4 fL 80-100 [facility] Magnesiumon 12-15-2022 Magnesium [Mass/Vol] 1.8 mg/dL Low 1.9-2.7 [facility] Comment on above: Result Comment: PERF ORMED BY:[facility] [place], [place] [phone] MEDICAL DIRECTORRAMEZ LARSON M.D. Performed By: #### B MP, CBC, MG ####[facility] [place] [address] [facility] Magnesium [Mass/volume] in S steffanie or PlasmaOrdered By: Erica Armenta on 12-15-2022 Magnesium [Mass/Vol] 1.8 mg/dL 1.9-2.7 [facility] Monocytes Auto (Bld) [#/Vol] Ordered By: Erica Armenta on 12-15-2022 Monocytes (Bld) [#/Vol] 0.9 10*3/uL 0.0-0.8 [facility] Monocytes/100 WBC Auto (Bld) Ordered By: Erica Armenta on 12-15-2022 Monocytes/100 WBC (Bld) 8.5 % . [facility] Neutrophils Auto (Bld) [#/Vo l]Ordered By: Erica Armenta on 12-15-2022 Neutrophils (Bld) [#/Vol] 8.5 10*3/uL 1.8-7.7 [facility] Neutrophils/100 WBC Auto (Bl d)Ordered By: Erica Armenta on 12-15-2022 Neutrophils/100 WBC (Bld) 79.3 % . [facility] No Panel InformationOrdered By: Erica Armenta on 12-15-2022 Bedside Glucose Comment Glu2: cleaned meter [facility] Estimated GFR (CKD-EPI) 9.437 mL/Min [facility] Pharmacy Creatinine Clearance (Chem 9.14 [facility] Nucleated erythrocytes [Pres ence] in Blood by Automated countOrdered By: Erica Armenta on 12-15-2022 Nucleated RBC Auto Ql (Bld) 0.0 /100{WBC} 0-0.5 [facility] Platelet mean volume Auto (B ld) [Entitic vol]Ordered By: Erica Armenta on 12-15-2022 Platelet mean volume (Bld) [Entitic vol] 7.5 fL 6.3-10.7 [facility] Platelets Auto (Bld) [#/Vol] Ordered By: Erica Armenta on 12-15-2022 Platelets (Bld) [#/Vol] 305 10*3/uL 150-450 [facility] Potassium [Moles/volume] in Serum or PlasmaOrdered By: Erica Armenta on 12-15-2022 Potassium [Moles/Vol] 4.4 mmol/L 3.5-5.[address] [facility] RBC Auto (Bld) [#/Vol]Ordere d By: Erica Armenta on 12-15-2022 RBC (Bld) [#/Vol] 3.63 10*6/uL 3.60-5.00 [facility] Serum or plasma anion gap de terminationOrdered By: Erica Armenta on 12-15-2022 Anion gap [Moles/Vol] 18.3 mmol/L 6.0-15.0 [facility] Sodium [Moles/volume] in Ser um or PlasmaOrdered By: Erica Armenta on 12-15-2022 Sodium [Moles/Vol] 129 mmol/L 136-145 [facility] Urea nitrogen [Mass/volume] in Serum or PlasmaOrdered By: Erica Armenta on 12-15-2022 Urea nitrogen [Mass/Vol] 70 mg/dL 7-25 [facility] WBC Auto (Bld) [#/Vol]Ordere d By: Erica Armenta on 12-15-2022 WBC (Bld) [#/Vol] 10.7 10*3/uL 3.8-11.6 [facility] Basic Metabolic Panelon 11-0 Anion gap [Moles/Vol] 17.5 mmol/L High 6.0-15.0 [facility] Comment on above: Performed By: #### H S TROP, CBC, BMP ####[facility] [address] [place] [id number] [facility] Calcium [Mass/Vol] 9.1 mg/dL Normal 8.6-10.3 [facility] Comment on above: Performed By: #### H S TROP, CBC, BMP ####[facility] [address] [place] [id number] [facility] Chloride [Moles/Vol] 90 mmol/L Low 98-107 [facility] Comment on above: Performed By: #### H S TROP, CBC, BMP ####[place] [address] [place] [address] [facility] CO2 [Moles/Vol] 25.1 mmol/L Normal 21.0-31.0 [facility] Comment on above: Performed By: #### H S TROP, CBC, BMP ####[place] [address] [place] [address] [facility] Creatinine [Mass/Vol] 3.37 mg/dL High 0.60-1.[address] [facility] Comment on above: Performed By: #### H S TROP, CBC, BMP ####[place] [address] [place] [address] [place] Creatinine Clr Calc Pharmacy 12.46 [facility] Comment on above: Result Comment: PERF ORMED BY:[address] [place], [place] [phone] MEDICAL DIRECTORRAMEZ LARSON M.D. Performed By: #### H S TROP, CBC, BMP ####[address] [address] [facility] GFR/1.73 sq M.predicted MDRD (S/P/Bld) [Vol rate/Area] 13.673 mL/min/{1.73_m2} [facility] Comment on above: Performed By: #### H S TROP, CBC, BMP ####[place] [address] [place] [address] [facility] Glucose [Mass/Vol] 317 mg/dL High 70-100 [facility] Comment on above: Result Comment: [place] Glucose Reference Range is dependent on time and content of last meal. Glucose of more than 200 mg/dL in a nonstressed, ambulatory subject supports the diagnosis of Diabetes Mellitus. ADA recommended reference range Performed By: #### H S TROP, CBC, BMP ####[place] [address] [place] [address] [facility] Potassium [Moles/Vol] 4.6 mmol/L Normal 3.5-5.[address] [facility] Comment on above: Performed By: #### H S TROP, CBC, BMP ####[address] [place] [address] [facility] Sodium [Moles/Vol] 128 mmol/L Low 136-145 [facility] Comment on above: Performed By: #### H S TROP, CBC, BMP ####[place] [address] [place] [id number] [facility] Urea nitrogen [Mass/Vol] 51 mg/dL High 7-25 [facility] Comment on above: Performed By: #### H S TROP, CBC, BMP ####[place] [address] [place] [id number] [facility] Anion gap [Moles/Vol] 23.7 mmol/L High 6.0-15.0 [facility] Comment on above: Performed By: #### H S TROP, CBC, BMP ####[place] [id number] [facility] Calcium [Mass/Vol] 8.6 mg/dL Normal 8.6-10.3 [facility] Comment on above: Performed By: #### H Luda TROP, CBC, BMP ####[place] [id number] [facility] Chloride [Moles/Vol] 89 mmol/L Low 98-107 [facility] Comment on above: Performed By: #### H S TROP, CBC, BMP ####[place] [id number] [facility] CO2 [Moles/Vol] 21.1 mmol/L Normal 21.0-31.0 [facility] Comment on above: Performed By: #### H S TROP, CBC, BMP ####[facility] [address] [place], [place] [id number] [facility] Creatinine [Mass/Vol] 3.15 mg/dL High 0.60-1.[address] [facility] Comment on above: Performed By: #### H S TROP, CBC, BMP ####[place] [id number] [facility] Creatinine Clr Calc Pharmacy 13.33 Normal [facility] Comment on above: Result Comment: PERF ORMED BY:[place] [address] [place], [place] [phone] MEDICAL DIRECTORRAMEZ LARSON M.D. Performed By: #### H S ISABELLE CBC, BMP ####[place] [address] [place] [address] [facility] GFR/1.73 sq M.predicted MDRD (S/P/Bld) [Vol rate/Area] 14.826 mL/min/{1.73_m2} Normal [facility] Comment on above: Performed By: #### H S ISABELLE CBC, BMP ####[place] [address] [place] [id number] [facility] Glucose [Mass/Vol] 328 mg/dL High 70-100 [facility] Comment on above: Result Comment: [facility][note 3] Glucose Reference Range is dependent on time and content of last meal. Glucose of more than 200 mg/dL in a nonstressed, ambulatory subject supports the diagnosis of Diabetes Mellitus. ADA recommended reference range Performed By: #### H S ISABELLE CBC, BMP ####[place] [address] [place] [address] [facility] Potassium [Moles/Vol] 4.8 mmol/L Normal 3.5-5.[address] [facility] Comment on above: Performed By: #### H S ISABELLE CBC, BMP ####[place] [id number] [facility] Sodium [Moles/Vol] 129 mmol/L Low 136-145 [facility] Comment on above: Performed By: #### H Luda W[place]TON CBC, BMP ####[place] [address] [place] [id number] [facility] Urea nitrogen [Mass/Vol] 45 mg/dL High 7-25 [facility] Comment on above: Performed By: #### H S ISABELLE CBC, BMP ####[place] [address] [place] [id number] [facility] Complete Blood Count Auto Di ffon 12-14-2022 Basophils (Bld) [#/Vol] 0.0 10*3/uL Normal 0.0-0.2 [facility] Comment on above: Result Comment: PERF ORMED BY:[address] [place], [place] [phone] MEDICAL DIRECTORRAMEZ LARSON M.D. Performed By: #### H S TROP, CBC, BMP ####[place] [id number] [facility] Basophils/100 WBC (Bld) 0.3 % Normal . [facility] Comment on above: Performed By: #### H S TROP, CBC, BMP ####[address] Eosinophils (Bld) [#/Vol] 0.0 10*3/uL Normal 0.0-0.45 [facility] Comment on above: Performed By: #### H S TROP, CBC, BMP ####[address] Eosinophils/100 WBC (Bld) 0.0 % Normal . [facility] Comment on above: Performed By: #### H S TROP, CBC, BMP ####[address] Erythrocyte distribution width (RBC) [Ratio] 17.9 % High 11.9-15.3 [facility] Comment on above: Performed By: #### H S TROP, CBC, BMP ####[place] [id number] [facility] Hematocrit (Bld) [Volume fraction] 32.1 % Low 34.0-46.4 [facility] Comment on above: Performed By: #### H S TROP, CBC, BMP ####[address] Hemoglobin (Bld) [Mass/Vol] 10.2 g/dL Low 11.8-15.4 [facility] Comment on above: Performed By: #### H S TROP, CBC, BMP ####[place] [id number] [facility] Lymphocytes (Bld) [#/Vol] 1.0 10*3/uL Normal 1.00-4.8 [facility] Comment on above: Performed By: #### H S TROP, CBC, BMP ####[address] Lymphocytes/100 WBC (Bld) 8.7 % Normal . [facility] Comment on above: Performed By: #### H S TROP, CBC, BMP ####[address] MCH (RBC) [Entitic mass] 29.0 pg Normal 24.7-34.3 [facility] Comment on above: Performed By: #### H S TROP, CBC, BMP ####[address] MCV (RBC) [Entitic vol] 91.5 fL Normal 80-100 [facility] Comment on above: Performed By: #### H S TROP, CBC, BMP ####[address] Mean Corpuscular HGB Conc 31.7 g/dL Low 32.0-35.0 [facility] Comment on above: Performed By: #### H S TROP, CBC, BMP ####[address] Monocytes (Bld) [#/Vol] 0.6 10*3/uL Normal 0.0-0.8 [facility] Comment on above: Performed By: #### H S TROP, CBC, BMP ####[address] Monocytes/100 WBC (Bld) 5.3 % Normal . [facility] Comment on above: Performed By: #### H S TROP, CBC, BMP ####[address] Neutrophils (Bld) [#/Vol] 9.4 10*3/uL High 1.8-7.7 [facility] Comment on above: Performed By: #### H S TROP, CBC, BMP ####[address] Neutrophils/100 WBC (Bld) 85.7 % Normal . [facility] Comment on above: Performed By: #### H S TROP, CBC, BMP ####[address] NRBC% 0.0 /100{WBC} Normal 0-0.5 [facility] Comment on above: Performed By: #### H S TROP, CBC, BMP ####[address] [address] Platelet mean volume (Bld) [Entitic vol] 7.8 fL Normal 6.3-10.7 [facility] Comment on above: Performed By: #### H S TROP, CBC, BMP ####[address] Platelets (Bld) [#/Vol] 321 10*3/uL Normal 150-450 [facility] Comment on above: Performed By: #### H S TROP, CBC, BMP ####[address] RBC (Bld) [#/Vol] 3.51 10*6/uL Low 3.60-5.00 [facility] Comment on above: Performed By: #### H S TROP, CBC, BMP ####[address] WBC (Bld) [#/Vol] 10.9 10*3/uL Normal 3.8-11.6 [facility] Comment on above: Performed By: #### H S TROP, CBC, BMP ####[address] Basophils (Bld) [#/Vol] 0.0 10*3/uL Normal 0.0-0.2 [facility] Comment on above: Result Comment: PERF ORMED BY:[address] [place], [place] [phone] MEDICAL MAJOR LARSON M.D. Performed By: #### H S TROP, CBC, BMP ####[address] Basophils/100 WBC (Bld) 0.2 % Normal . [facility] Comment on above: Performed By: #### H S TROP, CBC, BMP ####[address] Eosinophils (Bld) [#/Vol] 0.0 10*3/uL Normal 0.0-0.45 [facility] Comment on above: Performed By: #### H S TROP, CBC, BMP ####[address] Eosinophils/100 WBC (Bld) 0.0 % Normal . [facility] Comment on above: Performed By: #### H S TROP, CBC, BMP ####[address] Erythrocyte distribution width (RBC) [Ratio] 17.4 % High 11.9-15.3 [facility] Comment on above: Performed By: #### H S TROP, CBC, BMP ####[address] Hematocrit (Bld) [Volume fraction] 32.3 % Low 34.0-46.4 [facility] Comment on above: Performed By: #### H S TROP, CBC, BMP ####[address] Hemoglobin (Bld) [Mass/Vol] 10.1 g/dL Low 11.8-15.4 [facility] Comment on above: Performed By: #### H S TROP, CBC, BMP ####[address] Lymphocytes (Bld) [#/Vol] 0.5 10*3/uL Low 1.00-4.8 [facility] Comment on above: Performed By: #### H S TROP, CBC, BMP ####[address] Lymphocytes/100 WBC (Bld) 4.0 % Normal . [facility] Comment on above: Performed By: #### H S TROP, CBC, BMP ####[address] MCH (RBC) [Entitic mass] 28.9 pg Normal 24.7-34.3 [facility] Comment on above: Performed By: #### H S TROP, CBC, BMP ####[address] MCV (RBC) [Entitic vol] 92.5 fL Normal 80-100 [facility] Comment on above: Performed By: #### H S TROP, CBC, BMP ####[address] Mean Corpuscular HGB Conc 31.3 g/dL Low 32.0-35.0 [facility] Comment on above: Performed By: #### H S TROP, CBC, BMP ####[address] Monocytes (Bld) [#/Vol] 0.4 10*3/uL Normal 0.0-0.8 [facility] Comment on above: Performed By: #### H S TROP, CBC, BMP ####[address] Monocytes/100 WBC (Bld) 3.2 % Normal . [facility] Comment on above: Performed By: #### H S TROP, CBC, BMP ####[address] Neutrophils (Bld) [#/Vol] 12.4 10*3/uL High 1.8-7.7 [facility] Comment on above: Performed By: #### H S TROP, CBC, BMP ####[address] Neutrophils/100 WBC (Bld) 92.6 % Normal . [facility] Comment on above: Performed By: #### H S TROP, CBC, BMP ####[address] NRBC% 0.0 /100{WBC} Normal 0-0.5 [facility] Comment on above: Performed By: #### H S TROP, CBC, BMP ####[place] [address] [place] [id number] [facility] Platelet mean volume (Bld) [Entitic vol] 7.7 fL Normal 6.3-10.7 [facility] Comment on above: Performed By: #### H S TROP, CBC, BMP ####[place] [id number] [facility] Platelets (Bld) [#/Vol] 312 10*3/uL Normal 150-450 [facility] Comment on above: Performed By: #### H S TROP, CBC, BMP ####[place] [id number] [facility] RBC (Bld) [#/Vol] 3.50 10*6/uL Low 3.60-5.00 [facility] Comment on above: Performed By: #### H S TROP, CBC, BMP ####[place] [id number] [facility] WBC (Bld) [#/Vol] 13.4 10*3/uL High 3.8-11.6 [facility] Comment on above: Performed By: #### H S TROP, CBC, BMP ####[place] [id number] [facility] ECH echo transthoracicon ECH echo transthoracic Normal [facility] Glucose Poct Glucometerson 1 02-13-2022 Commemt1 Glu2: Cleaned Meter Normal [facility] Comment on above: Result Comment: PERF ORMED BY:[address] [place], [place] [phone] MEDICAL DIRECTORRAMEZ LARSON M.D. Performed By: #### G DAVID ####Point of Care testing, Glucose [Mass/Vol] 225 mg/dL Normal [facility] Comment on above: Result Comment: [place] Glucose Reference Range is dependent on time and content of last meal. Glucose of more than 200 mg/dL in a nonstressed, ambulatory subject supports the diagnosis of Diabetes Mellitus. Performed By: #### G LULS ####Point of Care testing, Glucose [Mass/Vol] 222 mg/dL Normal [facility] Comment on above: Result Comment: [place] om Glucose Reference Range is dependent on time and content of last meal. Glucose of more than 200 mg/dL in a nonstressed, ambulatory subject supports the diagnosis of Diabetes Mellitus.PERFORMED BY:[address] [place], [place] [phone] MEDICAL DIRECTORRAMEZ LARSON M.D. Performed By: #### G LULS ####Point of Care testing, Commemt1 Glu2: Cleaned Meter [facility] Comment on above: Result Comment: PERF ORMED BY:[address] [place], [place] [phone] MEDICAL DIRECTORRAMEZ LARSON M.D. Performed By: #### G LULS ####Point of Care testing, Glucose [Mass/Vol] 233 mg/dL Normal [facility] Comment on above: Result Comment: [place] om Glucose Reference Range is dependent on time and content of last meal. Glucose of more than 200 mg/dL in a nonstressed, ambulatory subject supports the diagnosis of Diabetes Mellitus. Performed By: #### G LULS ####Point of Care testing, Commemt1 Glu2: Cleaned Meter [facility] Comment on above: Result Comment: PERF ORMED BY:[address] [place], [place] [phone] MEDICAL MAJOR LARSON M.D. Performed By: #### G LULS ####Point of Care testing, Glucose [Mass/Vol] 249 mg/dL Normal [facility] Comment on above: Result Comment: [place] om Glucose Reference Range is dependent on time and content of last meal. Glucose of more than 200 mg/dL in a nonstressed, ambulatory subject supports the diagnosis of Diabetes Mellitus. Performed By: #### G LULS ####Point of Care testing, Troponin I High Sensitivityo n 12-14-2022 Troponin I High Sensitivity 48.8 pg/mL High 0.0-15.0 [facility] Comment on above: Result Comment: PERF ORMED BY:[place] [address] [address] [place], [place] [phone] MEDICAL DIRECTORRAMEZ LARSON M.D. Performed By: #### H S TROP, CBC, BMP ####[address] [address] [facility] Troponin I High Sensitivity 36.2 pg/mL High 0.0-15.0 [facility] Comment on above: Result Comment: PERF ORMED BY:[address] [place], [place] [phone] MEDICAL DIRECTORRAMEZ LARSON M.D. Performed By: #### H S TROP, CBC, BMP ####[address] [address] [facility] Troponin I.cardiac [Mass/vol ume] in Serum or Plasma by Detection limit <= 0.01 ng/Ordered By: Jamal Schaefer on 12-14-2022 Troponin I.cardiac DL <= 0.01 ng/mL [Mass/Vol] 48.8 pg/mL 0.0-15.0 [facility] ECG 12 lead ECGon 12-13-2022 ECG 12 lead ECG Normal [facility] Basic Metabolic Panelon 103 Anion gap [Moles/Vol] 17.7 mmol/L High 6.0-15.0 [facility] Comment on above: Performed By: #### C BC, MG, BMP ####[address] [address] [facility] Calcium [Mass/Vol] 9.5 mg/dL Normal 8.6-10.3 [facility] Comment on above: Performed By: #### C BC, MG, BMP ####[address] [address] [facility] Chloride [Moles/Vol] 88 mmol/L Low 98-107 [facility] Comment on above: Performed By: #### C BC, MG, BMP ####[facility] [address] [place] [address] [facility] CO2 [Moles/Vol] 26.7 mmol/L Normal 21.0-31.0 [facility] Comment on above: Performed By: #### C BC, MG, BMP ####[facility] [place] [address] [facility] Creatinine [Mass/Vol] 5.27 mg/dL Significan t change up 0.60-1.20 [facility] Comment on above: Performed By: #### C BC, MG, BMP ####[facility] Creatinine Clr Calc Pharmacy 7.96 [facility] Comment on above: Performed By: #### C BC, MG, BMP ####[facility] [place] [id number] [facility] GFR/1.73 sq M.predicted MDRD (S/P/Bld) [Vol rate/Area] 7.995 mL/min/{1.73_m2} [facility] Comment on above: Performed By: #### C BC, MG, BMP ####[facility] [place] [id number] [facility] Glucose [Mass/Vol] 200 mg/dL High 70-100 [facility] Comment on above: Result Comment: [place] Glucose Reference Range is dependent on time and content of last meal. Glucose of more than 200 mg/dL in a nonstressed, ambulatory subject supports the diagnosis of Diabetes Mellitus. ADA recommended reference range Performed By: #### C BC, MG, BMP ####[facility] [place] [address] [facility] Potassium [Moles/Vol] 4.4 mmol/L Normal 3.5-5.[address] [facility] Comment on above: Performed By: #### C BC, MG, BMP ####[facility] [address] [place] [address] [facility] Sodium [Moles/Vol] 128 mmol/L Low 136-145 [facility] Comment on above: Performed By: #### C REBECCA, MG, BMP ####[facility] [place] [address] [facility] Urea nitrogen [Mass/Vol] 73 mg/dL High 7-25 [facility] Comment on above: Performed By: #### C BC, MG, BMP ####[facility] [place] [address] [facility] Basophils Auto (Bld) [#/Vol] Ordered By: Pennie Love on 12-09-2022 Basophils (Bld) [#/Vol] 0.0 10*3/uL 0.0-0.2 [facility] Basophils/100 WBC Auto (Bld) Ordered By: Pennie Love on 12-09-2022 Basophils/100 WBC (Bld) 0.5 % . [facility] Calcium [Mass/volume] in Ser um or PlasmaOrdered By: Pennie Love on 12-09-2022 Calcium [Mass/Vol] 9.5 mg/dL 8.6-10.3 [facility] Carbon dioxide, total [Moles /volume] in Serum or PlasmaOrdered By: Pennie Love on 12-09-2022 CO2 [Moles/Vol] 26.7 mmol/L 21.0-31.0 [facility] Chloride [Moles/volume] in S steffanie or PlasmaOrdered By: Pennie Love on 12-09-2022 Chloride [Moles/Vol] 88 mmol/L 98-107 [facility] Complete Blood Count Auto Di ffon 12-09-2022 Basophils (Bld) [#/Vol] 0.0 10*3/uL Normal 0.0-0.2 [facility] Comment on above: Result Comment: PERF ORMED BY:[facility] [place], [place] [phone] MEDICAL DIRECTORRAMEZ LARSON M.D. Performed By: #### C BC, MG, BMP ####[facility] [address] [place] [address] [facility] Basophils/100 WBC (Bld) 0.5 % Normal . [facility] Comment on above: Performed By: #### C BC, MG, BMP ####[address] Eosinophils (Bld) [#/Vol] 0.1 10*3/uL Normal 0.0-0.45 [facility] Comment on above: Performed By: #### C BC, MG, BMP ####[address] Eosinophils/100 WBC (Bld) 1.4 % Normal . [facility] Comment on above: Performed By: #### C BC, MG, BMP ####[address] Erythrocyte distribution width (RBC) [Ratio] 17.5 % High 11.9-15.3 [facility] Comment on above: Performed By: #### C BC, MG, BMP ####[address] Hematocrit (Bld) [Volume fraction] 34.5 % Normal 34.0-46.4 [facility] Comment on above: Performed By: #### C BC, MG, BMP ####[address] Hemoglobin (Bld) [Mass/Vol] 10.8 g/dL Low 11.8-15.4 [facility] Comment on above: Performed By: #### C BC, MG, BMP ####[address] Lymphocytes (Bld) [#/Vol] 1.4 10*3/uL Normal 1.00-4.8 [facility] Comment on above: Performed By: #### C BC, MG, BMP ####[address] Lymphocytes/100 WBC (Bld) 13.7 % Normal . [facility] Comment on above: Performed By: #### C BC, MG, BMP ####[address] MCH (RBC) [Entitic mass] 28.6 pg Normal 24.7-34.3 [facility] Comment on above: Performed By: #### C BC MG, BMP ####[address] MCV (RBC) [Entitic vol] 91.3 fL Normal 80-100 [facility] Comment on above: Performed By: #### C BC MG, BMP ####[address] Mean Corpuscular HGB Conc 31.3 g/dL Low 32.0-35.0 [facility] Comment on above: Performed By: #### C REBECCA MG, BMP ####[address] Monocytes (Bld) [#/Vol] 0.7 10*3/uL Normal 0.0-0.8 [facility] Comment on above: Performed By: #### C REBECCA MG, BMP ####[address] Monocytes/100 WBC (Bld) 6.8 % Normal . [facility] Comment on above: Performed By: #### C REBECCA MG, BMP ####[address] Neutrophils (Bld) [#/Vol] 8.1 10*3/uL High 1.8-7.7 [facility] Comment on above: Performed By: #### C BC MG, BMP ####[address] Neutrophils/100 WBC (Bld) 77.6 % Normal . [facility] Comment on above: Performed By: #### C BC MG, BMP ####[address] NRBC% 0.0 /100{WBC} Normal 0-0.5 [facility] Comment on above: Performed By: #### C BC MG, BMP ####[address] Platelet mean volume (Bld) [Entitic vol] 7.4 fL Normal 6.3-10.7 [facility] Comment on above: Performed By: #### C REBECCA MG, BMP ####[facility] Platelets (Bld) [#/Vol] 405 10*3/uL Normal 150-450 [facility] Comment on above: Performed By: #### C REBECCA MG, BMP ####[place] [address] RBC (Bld) [#/Vol] 3.77 10*6/uL Normal 3.60-5.00 [facility] Comment on above: Performed By: #### C REBECCA MG, BMP ####[place] [address] WBC (Bld) [#/Vol] 10.4 10*3/uL Normal 3.8-11.6 [facility] Comment on above: Performed By: #### Tara FERNANDEZ MG, BMP ####[address] Creatinine [Mass/volume] in Serum or PlasmaOrdered By: Pennie Love on 12-09-2022 Creatinine [Mass/Vol] 5.27 mg/dL 0.60-1.[address] [facility] Comment on above: Delta: 4.34 on 12/08-442 Eosinophils Auto (Bld) [#/Vo l]Ordered By: Pennie Love on 12-09-2022 Eosinophils (Bld) [#/Vol] 0.1 10*3/uL 0.0-0.45 [facility] Eosinophils/100 WBC Auto (Bl d)Ordered By: Pennie Love on 12-09-2022 Eosinophils/100 WBC (Bld) 1.4 % . [facility] Erythrocyte distribution wid th Auto (RBC) [Ratio]Ordered By: Pennie Love on 12-09-2022 Erythrocyte distribution width (RBC) [Ratio] 17.5 % 11.9-15.3 [facility] Glucose Glucometer (BldC) [M ass/Vol]Ordered By: Teresa Pagan on 12-09-2022 Glucose [Mass/Vol] 282 mg/dL [facility] Comment on above: Random Glucose Refer ence Range is dependent on time and content of last meal. Glucose of more than 200 mg/dL in a nonstressed, ambulatory subject supports the diagnosis of Diabetes Mellitus. Glucose Poct Glucometerson 1 Glucose [Mass/Vol] 282 mg/dL Normal [facility] Comment on above: Result Comment: [place] om Glucose Reference Range is dependent on time and content of last meal. Glucose of more than 200 mg/dL in a nonstressed, ambulatory subject supports the diagnosis of Diabetes Mellitus.PERFORMED BY:[place] [address] [address] [place], [place] [phone] MEDICAL DIRECTORRAMEZ LARSON M.D. Performed By: #### G LULS ####Point of Care testing, Glucose [Mass/Vol] 172 mg/dL Normal [facility] Comment on above: Result Comment: [place] om Glucose Reference Range is dependent on time and content of last meal. Glucose of more than 200 mg/dL in a nonstressed, ambulatory subject supports the diagnosis of Diabetes Mellitus.PERFORMED BY:[place] [address] [address] [place], [place] [phone] MEDICAL MAJOR LARSON M.D. Performed By: #### G LULS ####Point of Care testing, Glucose [Mass/Vol] 210 mg/dL Normal [facility] Comment on above: Result Comment: [place] om Glucose Reference Range is dependent on time and content of last meal. Glucose of more than 200 mg/dL in a nonstressed, ambulatory subject supports the diagnosis of Diabetes Mellitus.PERFORMED BY:[place] [address] [address] [place], [place] [phone] MEDICAL DIRECTORRAMEZ LARSON M.D. Performed By: #### G LULS ####Point of Care testing, Glucose [Mass/volume] in Ser um or PlasmaOrdered By: Pennie Love on 12-09-2022 Glucose [Mass/Vol] 200 mg/dL 70-100 [facility] Comment on above: ADA recommended refe rence rangeRandom Glucose Reference Range is dependent on time and content of last meal. Glucose of more than 200 mg/dL in a nonstressed, ambulatory subject supports the diagnosis of Diabetes Mellitus. Hematocrit Auto (Bld) [Volum e fraction]Ordered By: Pennie Love on 12-09-2022 Hematocrit (Bld) [Volume fraction] 34.5 % 34.0-46.4 [facility] Hemoglobin [Mass/volume] in BloodOrdered By: Pennie Love on 12-09-2022 Hemoglobin (Bld) [Mass/Vol] 10.8 g/dL 11.8-15.4 [facility] Leukocytes [#/volume] correc tr for nucleated erythrocytes in Blood by Automated counOrdered By: Pennie Love on 12-09-2022 WBC corrected for nucl RBC Auto (Bld) [#/Vol] 10.4 10*3/uL 3.8-11.6 [facility] Lymphocytes Auto (Bld) [#/Vo l]Ordered By: Pennie Love on 12-09-2022 Lymphocytes (Bld) [#/Vol] 1.4 10*3/uL 1.00-4.8 [facility] Lymphocytes/100 WBC Auto (Bl d)Ordered By: Pennie Love on 12-09-2022 Lymphocytes/100 WBC (Bld) 13.7 % . [facility] MCH Auto (RBC) [Entitic mass ]Ordered By: Pennie Love on 12-09-2022 MCH (RBC) [Entitic mass] 28.6 pg 24.7-34.3 [facility] MCHC Auto (RBC) [Mass/Vol]Or dered By: Pennie Love on 12-09-2022 MCHC (RBC) [Mass/Vol] 31.3 g/dL 32.0-35.[address] [facility] MCV Auto (RBC) [Entitic vol] Ordered By: Pennie Love on 12-09-2022 MCV (RBC) [Entitic vol] 91.3 fL 80-100 [facility] Magnesiumon 12-09-2022 Magnesium [Mass/Vol] 1.9 mg/dL Normal 1.9-2.7 [facility] Comment on above: Result Comment: PERF ORMED BY:[facility] [place], [place] [phone] MEDICAL DIRECTORRAMEZ LARSON M.D. Performed By: #### C BC, MG, BMP ####[facility] [address] [place] [address] [facility] Magnesium [Mass/volume] in S steffanie or PlasmaOrdered By: Pennie Love on 12-09-2022 Magnesium [Mass/Vol] 1.9 mg/dL 1.9-2.7 [facility] Monocytes Auto (Bld) [#/Vol] Ordered By: Pennie Love on 12-09-2022 Monocytes (Bld) [#/Vol] 0.7 10*3/uL 0.0-0.8 [facility] Monocytes/100 WBC Auto (Bld) Ordered By: Pennie Love on 12-09-2022 Monocytes/100 WBC (Bld) 6.8 % . [facility] Neutrophils Auto (Bld) [#/Vo l]Ordered By: Pennie Love on 12-09-2022 Neutrophils (Bld) [#/Vol] 8.1 10*3/uL 1.8-7.7 [facility] Neutrophils/100 WBC Auto (Bl d)Ordered By: Pennie Love on 12-09-2022 Neutrophils/100 WBC (Bld) 77.6 % . [facility] No Panel InformationOrdered By: Pennie Love on 12-09-2022 Estimated GFR (CKD-EPI) 7.995 mL/Min [facility] Pharmacy Creatinine Clearance (Chem 7.96 [facility] Nucleated erythrocytes [Pres ence] in Blood by Automated countOrdered By: Pennie Love on 12-09-2022 Nucleated RBC Auto Ql (Bld) 0.0 /100{WBC} 0-0.5 [facility] Platelet mean volume Auto (B ld) [Entitic vol]Ordered By: Pennie Love on 12-09-2022 Platelet mean volume (Bld) [Entitic vol] 7.4 fL 6.3-10.7 [facility] Platelets Auto (Bld) [#/Vol] Ordered By: Pennie Love on 12-09-2022 Platelets (Bld) [#/Vol] 405 10*3/uL 150-450 [facility] Potassium [Moles/volume] in Serum or PlasmaOrdered By: Pennie Love on 12-09-2022 Potassium [Moles/Vol] 4.4 mmol/L 3.5-5.[address] [facility] RBC Auto (Bld) [#/Vol]Ordere d By: Pennie Love on 12-09-2022 RBC (Bld) [#/Vol] 3.77 10*6/uL 3.60-5.00 [facility] Serum or plasma anion gap de terminationOrdered By: Pennie Love on 12-09-2022 Anion gap [Moles/Vol] 17.7 mmol/L 6.0-15.0 [facility] Sodium [Moles/volume] in Ser um or PlasmaOrdered By: Pennie Love on 12-09-2022 Sodium [Moles/Vol] 128 mmol/L 136-145 [facility] Urea nitrogen [Mass/volume] in Serum or PlasmaOrdered By: Pennie Love on 12-09-2022 Urea nitrogen [Mass/Vol] 73 mg/dL 7- [facility] WBC Auto (Bld) [#/Vol]Ordere d By: Pennie Love on 12-09-2022 WBC (Bld) [#/Vol] 10.4 10*3/uL 3.8-11.6 [facility] Basic Metabolic Panelon 10 Anion gap [Moles/Vol] 17.9 mmol/L High 6.0-15.0 [facility] Comment on above: Performed By: #### C BC, BMP, MG, HS TROP ####[facility] [id number] [place] [id number] [facility] Calcium [Mass/Vol] 9.4 mg/dL Normal 8.6-10.3 [facility] Comment on above: Performed By: #### C BC, BMP, MG, HS TROP ####[facility] [place] [address] [facility] Chloride [Moles/Vol] 92 mmol/L Low 98-107 [facility] Comment on above: Performed By: #### C BC, BMP, MG, HS TROP ####[facility] [place] [address] [facility] CO2 [Moles/Vol] 25.3 mmol/L Normal 21.0-31.0 [facility] Comment on above: Performed By: #### C BC, BMP, MG, HS TROP ####[facility] [place] [address] [facility] Creatinine [Mass/Vol] 4.34 mg/dL Significan t change up 0.60-1.20 [facility] Comment on above: Performed By: #### C BC, BMP, MG, HS TROP ####[place] [address] [place] [address] [place] Creatinine Clr Calc Pharmacy 9.67 [facility] Comment on above: Performed By: #### C BC, BMP, MG, HS TROP ####[place] [address] [place] [address] [place] GFR/1.73 sq M.predicted MDRD (S/P/Bld) [Vol rate/Area] 10.093 mL/min/{1.73_m2} [facility] Comment on above: Performed By: #### C BC, BMP, MG, HS TROP ####[place] [address] [place] [id number] [facility] Glucose [Mass/Vol] 179 mg/dL High 70-100 [facility] Comment on above: Result Comment: [place] Glucose Reference Range is dependent on time and content of last meal. Glucose of more than 200 mg/dL in a nonstressed, ambulatory subject supports the diagnosis of Diabetes Mellitus. ADA recommended reference range Performed By: #### C BC, BMP, MG, HS TROP ####[facility] [place] [address] [facility] Potassium [Moles/Vol] 4.2 mmol/L Normal 3.5-5.[address] [facility] Comment on above: Performed By: #### C BC, BMP, MG, HS TROP ####[place] [id number] [facility] Sodium [Moles/Vol] 131 mmol/L Low 136-145 [facility] Comment on above: Performed By: #### C BC, BMP, MG, HS TROP ####[address] Urea nitrogen [Mass/Vol] 59 mg/dL High 7-25 [facility] Comment on above: Performed By: #### C BC, BMP, MG, HS TROP ####[address] Complete Blood Count Auto Di ffon 12-08-2022 Basophils (Bld) [#/Vol] 0.0 10*3/uL Normal 0.0-0.2 [facility] Comment on above: Result Comment: PERF ORMED BY:[address] [place], [place] [phone] MEDICAL DIRECTORRAMEZ LARSON M.D. Performed By: #### C BC, BMP, MG, HS TROP ####[address] Basophils/100 WBC (Bld) 0.2 % Normal . [facility] Comment on above: Performed By: #### C BC, BMP, MG, HS TROP ####[address] Eosinophils (Bld) [#/Vol] 0.1 10*3/uL Normal 0.0-0.45 [facility] Comment on above: Performed By: #### C BC, BMP, MG, HS TROP ####[address] Eosinophils/100 WBC (Bld) 0.7 % Normal . [facility] Comment on above: Performed By: #### C BC, BMP, MG, HS TROP ####[address] Erythrocyte distribution width (RBC) [Ratio] 17.1 % High 11.9-15.3 [facility] Comment on above: Performed By: #### C BC, BMP, MG, HS TROP ####[address] Hematocrit (Bld) [Volume fraction] 33.4 % Low 34.0-46.4 [facility] Comment on above: Performed By: #### C BC, BMP, MG, HS TROP ####[address] Hemoglobin (Bld) [Mass/Vol] 10.7 g/dL Low 11.8-15.4 [facility] Comment on above: Performed By: #### C BC, BMP, MG, HS TROP ####[address] Lymphocytes (Bld) [#/Vol] 1.6 10*3/uL Normal 1.00-4.8 [facility] Comment on above: Performed By: #### C BC, BMP, MG, HS TROP ####[address] Lymphocytes/100 WBC (Bld) 16.3 % Normal . [facility] Comment on above: Performed By: #### C BC, BMP, MG, HS TROP ####[place] [id number] [facility] MCH (RBC) [Entitic mass] 29.4 pg Normal 24.7-34.3 [facility] Comment on above: Performed By: #### C BC, BMP, MG, HS TROP ####[place] [id number] [facility] MCV (RBC) [Entitic vol] 91.9 fL Normal 80-100 [facility] Comment on above: Performed By: #### C BC, BMP, MG, HS TROP ####[place] [id number] [facility] Mean Corpuscular HGB Conc 32.0 g/dL Normal 32.0-35.0 [facility] Comment on above: Performed By: #### C BC, BMP, MG, HS TROP ####[address] Monocytes (Bld) [#/Vol] 1.0 10*3/uL High 0.0-0.8 [facility] Comment on above: Performed By: #### C BC, BMP, MG, HS TROP ####[address] Monocytes/100 WBC (Bld) 9.7 % Normal . [facility] Comment on above: Performed By: #### C BC, BMP, MG, HS TROP ####[address] Neutrophils (Bld) [#/Vol] 7.2 10*3/uL Normal 1.8-7.7 [facility] Comment on above: Performed By: #### C BC, BMP, MG, HS TROP ####[address] Neutrophils/100 WBC (Bld) 73.1 % Normal . [facility] Comment on above: Performed By: #### C BC, BMP, MG, HS TROP ####[address] NRBC% 0.0 /100{WBC} Normal 0-0.5 [facility] Comment on above: Performed By: #### C BC, BMP, MG, HS TROP ####[address] Platelet mean volume (Bld) [Entitic vol] 7.4 fL Normal 6.3-10.7 [facility] Comment on above: Performed By: #### C BC, BMP, MG, HS TROP ####[address] Platelets (Bld) [#/Vol] 377 10*3/uL Normal 150-450 [facility] Comment on above: Performed By: #### C BC, BMP, MG, HS TROP ####[address] [place] [address] [facility] RBC (Bld) [#/Vol] 3.64 10*6/uL Normal 3.60-5.00 [facility] Comment on above: Performed By: #### C BC, BMP, MG, HS TROP ####[address] [address] [facility] WBC (Bld) [#/Vol] 9.8 10*3/uL Normal 3.8-11.6 [facility] Comment on above: Performed By: #### C BC, BMP, MG, HS TROP ####[address] [address] [facility] Glucose Poct Glucometerson 1 Glucose [Mass/Vol] 294 mg/dL Normal [facility] Comment on above: Result Comment: [place] Glucose Reference Range is dependent on time and content of last meal. Glucose of more than 200 mg/dL in a nonstressed, ambulatory subject supports the diagnosis of Diabetes Mellitus.PERFORMED BY:[place] [address] [address] [place] [phone] MEDICAL DIRECTORRAMEZ LARSON M.D. Performed By: #### G LULS ####Point of Care testing, Glucose [Mass/Vol] 334 mg/dL Normal [facility] Comment on above: Result Comment: [place] Glucose Reference Range is dependent on time and content of last meal. Glucose of more than 200 mg/dL in a nonstressed, ambulatory subject supports the diagnosis of Diabetes Mellitus.PERFORMED BY:[place] [address] [address] [place], [place] [phone] MEDICAL MAJOR LARSON M.D. Performed By: #### G LULS ####Point of Care testing, Glucose [Mass/Vol] 236 mg/dL Normal [facility] Comment on above: Result Comment: [place] Glucose Reference Range is dependent on time and content of last meal. Glucose of more than 200 mg/dL in a nonstressed, ambulatory subject supports the diagnosis of Diabetes Mellitus.PERFORMED BY:[place] [address] [place], [place] [phone] MEDICAL DIRECTORRAMEZ LARSON M.D. Performed By: #### G LULS ####Point of Care testing, Glucose [Mass/Vol] 179 mg/dL Normal [facility] Comment on above: Result Comment: [facility][note 3] Glucose Reference Range is dependent on time and content of last meal. Glucose of more than 200 mg/dL in a nonstressed, ambulatory subject supports the diagnosis of Diabetes Mellitus.PERFORMED BY:[place] [address] [address] [place], [place] [phone] MEDICAL DIRECTORRAMEZ LARSON M.D. Performed By: #### G LUANNITA ####Point of Care testing, Magnesiumon 12-08-2022 Magnesium [Mass/Vol] 2.0 mg/dL Normal 1.9-2.7 [facility] Comment on above: Result Comment: PERF ORMED BY:[address] [place], [place] [phone] MEDICAL DIRECTORRAMEZ LARSON M.D. Performed By: #### C BC, BMP, MG, HS TROP ####[address] [address] [facility] Troponin I High Sensitivityo 12-08-2022 Troponin I High Sensitivity 23.4 pg/mL High 0.0-15.0 [facility] Comment on above: Result Comment: PERF ORMED BY:[place] [address] [address] [place], [place] [phone] MEDICAL DIRECTORRAMEZ LARSON M.D. Performed By: #### C BC, BMP, MG, HS TROP ####[address] [address] [facility] Troponin I.cardiac [Mass/vol ume] in Serum or Plasma by Detection limit <= 0.01 ng/Ordered By: Pennie Love on 12-08-2022 Troponin I.cardiac DL <= 0.01 ng/mL [Mass/Vol] 23.4 pg/mL 0.0-15.0 [facility] Basic Metabolic Panelon 11-11 Anion gap [Moles/Vol] 16.0 mmol/L High 6.0-15.0 [facility] Comment on above: Performed By: #### C BC BMP, MG ####[place] [address] [place] [address] [facility] Calcium [Mass/Vol] 9.5 mg/dL Normal 8.6-10.3 [facility] Comment on above: Performed By: #### C BC BMP, MG ####[place] [address] [place] [address] [facility] Chloride [Moles/Vol] 92 mmol/L Low 98-107 [facility] Comment on above: Performed By: #### C BC BMP, MG ####[place] [address] [place] [address] [facility] CO2 [Moles/Vol] 28.9 mmol/L Normal 21.0-31.0 [facility] Comment on above: Performed By: #### C REBECCA BMP, MG ####[place] [id number] [facility] Creatinine [Mass/Vol] 3.15 mg/dL Significan t change up 0.60-1.20 [facility] Comment on above: Performed By: #### C BC BMP, MG ####[address] [address] [facility] Creatinine Clr Calc Pharmacy 13.33 [facility] Comment on above: Performed By: #### C BC BMP, MG ####[place] [address] [place] [id number] [place] GFR/1.73 sq M.predicted MDRD (S/P/Bld) [Vol rate/Area] 14.826 mL/min/{1.73_m2} [facility] Comment on above: Performed By: #### C BC, BMP, MG ####[place] [address] [place] [address] [facility] Glucose [Mass/Vol] 240 mg/dL High 70-100 [facility] Comment on above: Result Comment: [facility][note 3] Glucose Reference Range is dependent on time and content of last meal. Glucose of more than 200 mg/dL in a nonstressed, ambulatory subject supports the diagnosis of Diabetes Mellitus. ADA recommended reference range Performed By: #### C CHELSI FERNANDEZ, MG ####[facility] [place] [address] [facility] Potassium [Moles/Vol] 3.9 mmol/L Normal 3.5-5.[address] [facility] Comment on above: Performed By: #### C REBECCA BMP, MG ####[place] [address] [place] [id number] [facility] Sodium [Moles/Vol] 133 mmol/L Low 136-145 [facility] Comment on above: Performed By: #### C CHELSI FERNANDEZ, MG ####[place] [address] [place] [id number] [facility] Urea nitrogen [Mass/Vol] 35 mg/dL High 7-25 [facility] Comment on above: Performed By: #### C CHELSI FERNANDEZ, MG ####[place] [address] [place] [address] [facility] Complete Blood Count Auto Di ffon 12-07-2022 Basophils (Bld) [#/Vol] 0.0 10*3/uL Normal 0.0-0.2 [facility] Comment on above: Result Comment: PERF ORMED BY:[address] [place], [place] [phone] MEDICAL DIRECTORRAMEZ LARSON M.D. Performed By: #### C REBECCA BMP, MG ####[place] [address] [place] [address] [facility] Basophils/100 WBC (Bld) 0.1 % Normal . [facility] Comment on above: Performed By: #### C REBECCA BMP, MG ####[place] [address] [place] [address] [facility] Eosinophils (Bld) [#/Vol] 0.0 10*3/uL Normal 0.0-0.45 [facility] Comment on above: Performed By: #### C BC, BMP, MG ####[place] [address] [place] [id number] [facility] Eosinophils/100 WBC (Bld) 0.0 % Normal . [facility] Comment on above: Performed By: #### C BC, BMP, MG ####[place] [address] [place] [address] [facility] Erythrocyte distribution width (RBC) [Ratio] 17.2 % High 11.9-15.3 [facility] Comment on above: Performed By: #### C BC, BMP, MG ####[place] [id number] [facility] Hematocrit (Bld) [Volume fraction] 35.5 % Normal 34.0-46.4 [facility] Comment on above: Performed By: #### C BC, BMP, MG ####[address] [address] [facility] Hemoglobin (Bld) [Mass/Vol] 11.2 g/dL Low 11.8-15.4 [facility] Comment on above: Performed By: #### C BC, BMP, MG ####[place] [address] [facility] Lymphocytes (Bld) [#/Vol] 0.9 10*3/uL Low 1.00-4.8 [facility] Comment on above: Performed By: #### C BC, BMP, MG ####[place] [address] [facility] Lymphocytes/100 WBC (Bld) 9.7 % Normal . [facility] Comment on above: Performed By: #### C BC, BMP, MG ####[place] [address] [facility] MCH (RBC) [Entitic mass] 29.0 pg Normal 24.7-34.3 [facility] Comment on above: Performed By: #### C BC, BMP, MG ####[address] [address] [facility] MCV (RBC) [Entitic vol] 92.1 fL Normal 80-100 [facility] Comment on above: Performed By: #### C BC, BMP, MG ####[facility] [place] [id number] [facility] Mean Corpuscular HGB Conc 31.5 g/dL Low 32.0-35.0 [facility] Comment on above: Performed By: #### C BC, BMP, MG ####[place] [address] [place] [address] [facility] Monocytes (Bld) [#/Vol] 0.8 10*3/uL Normal 0.0-0.8 [facility] Comment on above: Performed By: #### C BC, BMP, MG ####[place] [address] [place] [id number] [facility] Monocytes/100 WBC (Bld) 8.5 % Normal . [facility] Comment on above: Performed By: #### C BC, BMP, MG ####[address] Neutrophils (Bld) [#/Vol] 7.8 10*3/uL High 1.8-7.7 [facility] Comment on above: Performed By: #### C BC, BMP, MG ####[place] [id number] [facility] Neutrophils/100 WBC (Bld) 81.7 % Normal . [facility] Comment on above: Performed By: #### C BC, BMP, MG ####[place] [address] [facility] NRBC% 0.1 /100{WBC} Normal 0-0.5 [facility] Comment on above: Performed By: #### C BC, BMP, MG ####[place] [address] [place] [id number] [facility] Platelet mean volume (Bld) [Entitic vol] 7.3 fL Normal 6.3-10.7 [facility] Comment on above: Performed By: #### C BC, BMP, MG ####[place] [address] [place] [id number] [facility] Platelets (Bld) [#/Vol] 387 10*3/uL Normal 150-450 [facility] Comment on above: Performed By: #### C BC, BMP, MG ####[facility] [address] RBC (Bld) [#/Vol] 3.86 10*6/uL Normal 3.60-5.00 [facility] Comment on above: Performed By: #### C BC, BMP, MG ####[place] [address] [place] [id number] [facility] WBC (Bld) [#/Vol] 9.5 10*3/uL Normal 3.8-11.6 [facility] Comment on above: Performed By: #### C BC, BMP, MG ####[place] [id number] [facility] ECG 12 lead ECGon 12-07-2022 ECG 12 lead ECG Normal [facility] Glucose Poct Glucometerson 1 Glucose [Mass/Vol] 250 mg/dL Normal [facility] Comment on above: Result Comment: [facility][note 3] Glucose Reference Range is dependent on time and content of last meal. Glucose of more than 200 mg/dL in a nonstressed, ambulatory subject supports the diagnosis of Diabetes Mellitus.PERFORMED BY:[address] [place]ia[place], [place] [phone] MEDICAL DIRECTORRAMEZ LARSON M.D. Performed By: #### G LULS ####Point of Care testing, Glucose [Mass/Vol] 276 mg/dL Normal [facility] Comment on above: Result Comment: [facility][note 3] Glucose Reference Range is dependent on time and content of last meal. Glucose of more than 200 mg/dL in a nonstressed, ambulatory subject supports the diagnosis of Diabetes Mellitus.PERFORMED BY:[address] [place], [place] [phone] MEDICAL DIRECTORRAMEZ LARSON M.D. Performed By: #### G LULS ####Point of Care testing, Glucose [Mass/Vol] 209 mg/dL Normal [facility] Comment on above: Result Comment: [facility][note 3] Glucose Reference Range is dependent on time and content of last meal. Glucose of more than 200 mg/dL in a nonstressed, ambulatory subject supports the diagnosis of Diabetes Mellitus.PERFORMED BY:[place] [address] [place], [place] [phone] MEDICAL DIRECTORRAMEZ LARSON M.D. Performed By: #### G LULS ####Point of Care testing, Glucose [Mass/Vol] 229 mg/dL Normal [facility] Comment on above: Result Comment: [facility][note 3] Glucose Reference Range is dependent on time and content of last meal. Glucose of more than 200 mg/dL in a nonstressed, ambulatory subject supports the diagnosis of Diabetes Mellitus.PERFORMED BY:[place] [address] [place], [place] [phone] MEDICAL DIRECTORRAMEZ LARSON M.D. Performed By: #### G LULS ####Point of Care testing, Magnesiumon 12-07-2022 Magnesium [Mass/Vol] 2.0 mg/dL Normal 1.9-2.7 [facility] Comment on above: Result Comment: PERF ORMED BY:[place] [address] [address] [place], [place] [phone] MEDICAL DIRECTORRAMEZ LARSON M.D. Performed By: #### C BC, BMP, MG ####[facility] [address] [place] [address] [facility] Activated partial thrombopla stin time (aPTT) in platelet poor plasma by coagulation aOrdered By: Yusra Santoyo on 12-06-2022 aPTT Coag (PPP) [Time] 29.3 s 25.1-36.5 [facility] Comment on above: A hematocrit value g reater than 55% may lead to inaccurate results in coagulation testing. Patients having hematocrit values >55% require a special collection tube for coagulation studies. Please contact the laboratory at [phone] for redraw instructions. B-Type Natriuretic Peptideon 12-06-2022 Natriuretic peptide B (Bld) [Mass/Vol] 950.0 pg/mL High 5-100 [facility] Comment on above: Result Comment: PERF ORMED BY:[address] [place], [place] [phone] MEDICAL DIRECTORRAMEZ LARSON M.D. Performed By: #### P TT, BMP, PT, BNP, HS TROP, MG, CBC ####[address] [address] [facility] Basic Metabolic Panelon 10-2 Anion gap [Moles/Vol] 16.7 mmol/L High 6.0-15.0 [facility] Comment on above: Performed By: #### P TT, BMP, PT, BNP, HS TROP, MG, CBC ####[address] [address] [facility] Calcium [Mass/Vol] 9.8 mg/dL Normal 8.6-10.3 [facility] Comment on above: Performed By: #### P TT, BMP, PT, BNP, HS TROP, MG, CBC ####[address] [address] [facility] Chloride [Moles/Vol] 91 mmol/L Low 98-107 [facility] Comment on above: Performed By: #### P TT, BMP, PT, BNP, HS TROP, MG, CBC ####[address] [address] [facility] CO2 [Moles/Vol] 27.9 mmol/L Normal 21.0-31.0 [facility] Comment on above: Performed By: #### P TT, BMP, PT, BNP, HS TROP, MG, CBC ####[address] [address] [facility] Creatinine [Mass/Vol] 2.58 mg/dL High 0.60-1.[address] [facility] Comment on above: Performed By: #### P TT, BMP, PT, BNP, HS TROP, MG, CBC ####[address] [address] [facility] Creatinine Clr Calc Pharmacy 16.27 [facility] Comment on above: Result Comment: PERF ORMED BY:[address] [place], [place] [phone] MEDICAL DIRECTORRAMEZ LARSON M.D. Performed By: #### P TT, BMP, PT, BNP, HS TROP, MG, CBC ####[address] GFR/1.73 sq M.predicted MDRD (S/P/Bld) [Vol rate/Area] 18.839 mL/min/{1.73_m2} Normal [facility] Comment on above: Performed By: #### P TT, BMP, PT, BNP, HS TROP, MG, CBC ####[address] Glucose [Mass/Vol] 288 mg/dL High 70-100 [facility] Comment on above: Result Comment: [facility][note 3] Glucose Reference Range is dependent on time and content of last meal. Glucose of more than 200 mg/dL in a nonstressed, ambulatory subject supports the diagnosis of Diabetes Mellitus. ADA recommended reference range Performed By: #### P TT, BMP, PT, BNP, HS TROP, MG, CBC ####[address] Potassium [Moles/Vol] 3.6 mmol/L Normal 3.5-5.[address] [facility] Comment on above: Performed By: #### P TT, BMP, PT, BNP, HS TROP, MG, CBC ####[place] [id number] [facility] Sodium [Moles/Vol] 132 mmol/L Low 136-145 [facility] Comment on above: Performed By: #### P TT, BMP, PT, BNP, HS TROP, MG, CBC ####[address] Urea nitrogen [Mass/Vol] 25 mg/dL Normal 7-25 [facility] Comment on above: Performed By: #### P TT, BMP, PT, BNP, HS TROP, MG, CBC ####[address] [place] [address] [facility] Basophils Auto (Bld) [#/Vol] Ordered By: Yusra Santoyo on 12-06-2022 Basophils (Bld) [#/Vol] 0.0 10*3/uL 0.0-0.2 [facility] Basophils/100 WBC Auto (Bld) Ordered By: Yusra Santoyo on 12-06-2022 Basophils/100 WBC (Bld) 0.3 % . [facility] CT cervical spine wo conon 1 CT cervical spine wo con Normal [facility] CT head/brain wo conon 12-06 CT head/brain wo con Normal [facility] Calcium [Mass/volume] in Ser um or PlasmaOrdered By: Yusra Santoyo on 12-06-2022 Calcium [Mass/Vol] 9.8 mg/dL 8.6-10.3 [facility] Carbon dioxide, total [Moles /volume] in Serum or PlasmaOrdered By: Yusra Santoyo on 12-06-2022 CO2 [Moles/Vol] 27.9 mmol/L 21.0-31.0 [facility] Chloride [Moles/volume] in S steffanie or PlasmaOrdered By: Yusra Santoyo on 12-06-2022 Chloride [Moles/Vol] 91 mmol/L 98-107 [facility] Complete Blood Count Auto Di ffon 12-06-2022 Basophils (Bld) [#/Vol] 0.0 10*3/uL Normal 0.0-0.2 [facility] Comment on above: Result Comment: PERF ORMED BY:[facility] [place], [place] [phone] MEDICAL DIRECTORRAMEZ LARSON M.D. Performed By: #### P TT, BMP, PT, BNP, HS TROP, MG, CBC ####[facility] [address] [place] [address] [facility] Basophils/100 WBC (Bld) 0.3 % Normal . [facility] Comment on above: Performed By: #### P TT, BMP, PT, BNP, HS TROP, MG, CBC ####[address] Eosinophils (Bld) [#/Vol] 0.0 10*3/uL Normal 0.0-0.45 [facility] Comment on above: Performed By: #### P TT, BMP, PT, BNP, HS TROP, MG, CBC ####[address] Eosinophils/100 WBC (Bld) 0.1 % Normal . [facility] Comment on above: Performed By: #### P TT, BMP, PT, BNP, HS TROP, MG, CBC ####[address] Erythrocyte distribution width (RBC) [Ratio] 17.6 % High 11.9-15.3 [facility] Comment on above: Performed By: #### P TT, BMP, PT, BNP, HS TROP, MG, CBC ####[address] Hematocrit (Bld) [Volume fraction] 35.1 % Normal 34.0-46.4 [facility] Comment on above: Performed By: #### P TT, BMP, PT, BNP, HS TROP, MG, CBC ####[address] Hemoglobin (Bld) [Mass/Vol] 11.0 g/dL Low 11.8-15.4 [facility] Comment on above: Performed By: #### P TT, BMP, PT, BNP, HS TROP, MG, CBC ####[address] Lymphocytes (Bld) [#/Vol] 0.7 10*3/uL Low 1.00-4.8 [facility] Comment on above: Performed By: #### P TT, BMP, PT, BNP, HS TROP, MG, CBC ####[address] Lymphocytes/100 WBC (Bld) 5.4 % Normal . [facility] Comment on above: Performed By: #### P TT, BMP, PT, BNP, HS TROP, MG, CBC ####[address] MCH (RBC) [Entitic mass] 28.7 pg Normal 24.7-34.3 [facility] [facility] Comment on above: Performed By: #### P TT, BMP, PT, BNP, HS TROP, MG, CBC ####[address] MCV (RBC) [Entitic vol] 91.7 fL Normal 80-100 [facility] Comment on above: Performed By: #### P TT, BMP, PT, BNP, HS TROP, MG, CBC ####[address] Mean Corpuscular HGB Conc 31.3 g/dL Low 32.0-35.0 [facility] Comment on above: Performed By: #### P TT, BMP, PT, BNP, HS TROP, MG, CBC ####[address] Monocytes (Bld) [#/Vol] 0.6 10*3/uL Normal 0.0-0.8 [facility] Comment on above: Performed By: #### P TT, BMP, PT, BNP, HS TROP, MG, CBC ####[address] Monocytes/100 WBC (Bld) 21.25 % High 0.00-20.00 [facility] Comment on above: Result Comment: For adults in ED, MDW > 20.0 may be associated with a higher risk of sepsis during the first 12 hrs of hospital admission Performed By: #### P TT, BMP, PT, BNP, HS TROP, MG, CBC ####[address] Monocytes/100 WBC (Bld) 4.3 % Normal . [facility] Comment on above: Performed By: #### P TT, BMP, PT, BNP, HS TROP, MG, CBC ####[place] [address] Neutrophils (Bld) [#/Vol] 11.9 10*3/uL High 1.8-7.7 [facility] Comment on above: Performed By: #### P TT, BMP, PT, BNP, HS TROP, MG, CBC ####[address] Neutrophils/100 WBC (Bld) 89.9 % Normal . [facility] Comment on above: Performed By: #### P TT, BMP, PT, BNP, HS TROP, MG, CBC ####[address] NRBC% 0.1 /100{WBC} Normal 0-0.5 [facility] Comment on above: Performed By: #### P TT, BMP, PT, BNP, HS TROP, MG, CBC ####[address] Platelet mean volume (Bld) [Entitic vol] 7.3 fL Normal 6.3-10.7 [facility] Comment on above: Performed By: #### P TT, BMP, PT, BNP, HS TROP, MG, CBC ####[address] Platelets (Bld) [#/Vol] 431 10*3/uL Normal 150-450 [facility] Comment on above: Performed By: #### P TT, BMP, PT, BNP, HS TROP, MG, CBC ####[address] RBC (Bld) [#/Vol] 3.83 10*6/uL Normal 3.60-5.00 [facility] Comment on above: Performed By: #### P TT, BMP, PT, BNP, HS TROP, MG, CBC ####[address] WBC (Bld) [#/Vol] 13.3 10*3/uL High 3.8-11.6 [facility] Comment on above: Performed By: #### P TT, BMP, PT, BNP, HS TROP, MG, CBC ####[facility] [id number] Creatinine [Mass/volume] in Serum or PlasmaOrdered By: Yusra Santoyo on 12-06-2022 Creatinine [Mass/Vol] 2.58 mg/dL 0.60-1.20 [facility] ECG 12 lead ECGon 12-06-2022 ECG 12 lead ECG Normal [facility] ECG 12 lead ECG Normal [facility] Eosinophils Auto (Bld) [#/Vo l]Ordered By: Yusra Santoyo on 12-06-2022 Eosinophils (Bld) [#/Vol] 0.0 10*3/uL 0.0-0.45 [facility] Eosinophils/100 WBC Auto (Bl d)Ordered By: Yusra Santoyo on 12-06-2022 Eosinophils/100 WBC (Bld) 0.1 % . [facility] Erythrocyte distribution wid th Auto (RBC) [Ratio]Ordered By: Yusra Santoyo on 12-06-2022 Erythrocyte distribution width (RBC) [Ratio] 17.6 % 11.9-15.3 [facility] Glucose [Mass/volume] in Ser um or PlasmaOrdered By: Yusra Santoyo on 12-06-2022 Glucose [Mass/Vol] 288 mg/dL 70-100 [facility] Comment on above: ADA recommended refe rence rangeRandom Glucose Reference Range is dependent on time and content of last meal. Glucose of more than 200 mg/dL in a nonstressed, ambulatory subject supports the diagnosis of Diabetes Mellitus. Hematocrit Auto (Bld) [Volum e fraction]Ordered By: Yusra Santoyo on 12-06-2022 Hematocrit (Bld) [Volume fraction] 35.1 % 34.0-46.4 [facility] Hemoglobin [Mass/volume] in BloodOrdered By: Yusra Santoyo on 12-06-2022 Hemoglobin (Bld) [Mass/Vol] 11.0 g/dL 11.8-15.4 [facility] INR in Platelet poor plasma by Coagulation assayOrdered By: Yusra Santoyo on 12-06-2022 INR Coag (PPP) [Relative time] 1.0 {INR} [facility] Comment on above: INR Therapeutic Rang e [...] RBC Auto (Bld) [#/Vol] 13.3 10*3/uL 3.8-11.6 [facility] Lymphocytes Auto (Bld) [#/Vo l]Ordered By: Yusra Santoyo on 12-06-2022 Lymphocytes (Bld) [#/Vol] 0.7 10*3/uL 1.00-4.8 [facility] Lymphocytes/100 WBC Auto (Bl d)Ordered By: Yusra Santoyo on 12-06-2022 Lymphocytes/100 WBC (Bld) 5.4 % . [facility] MCH Auto (RBC) [Entitic mass ]Ordered By: Yusra Santoyo on 12-06-2022 MCH (RBC) [Entitic mass] 28.7 pg 24.7-34.3 [facility] MCHC Auto (RBC) [Mass/Vol]Or dered By: Yusra Santoyo on 12-06-2022 MCHC (RBC) [Mass/Vol] 31.3 g/dL 32.0-35.[address] [facility] MCV Auto (RBC) [Entitic vol] Ordered By: Yusra Santoyo on 12-06-2022 MCV (RBC) [Entitic vol] 91.7 fL 80-100 [facility] Magnesiumon 12-06-2022 Magnesium [Mass/Vol] 2.0 mg/dL Normal 1.9-2.7 [facility] Comment on above: Result Comment: PERF ORMED BY:[facility] [place], [place] [phone] MEDICAL DIRECTORRAMEZ LARSON M.D. Performed By: #### P TT, BMP, PT, BNP, HS TROP, MG, CBC ####[facility] [id number] [place] [id number] [facility] Magnesium [Mass/volume] in S steffanie or PlasmaOrdered By: Yusra Santoyo on 12-06-2022 Magnesium [Mass/Vol] 2.0 mg/dL 1.9-2.7 [facility] Monocyte distribution width [Entitic volume] in Blood by AutomatedOrdered By: Yusra Santoyo on 12-06-2022 Monocyte distribution width Auto (Bld) [Entitic vol] 21.25 % 0.00-20.00 [facility] Comment on above: For adults in ED, MD W > 20.0 may be associated with a higher risk of sepsis during the first 12 hrs of hospital admission Monocytes Auto (Bld) [#/Vol] Ordered By: Yusra Santoyo on 12-06-2022 Monocytes (Bld) [#/Vol] 0.6 10*3/uL 0.0-0.8 [facility] Monocytes/100 WBC Auto (Bld) Ordered By: Yusra Santoyo on 12-06-2022 Monocytes/100 WBC (Bld) 4.3 % . [facility] Natriuretic peptide B [Mass/ Vol]Ordered By: Yusra Santoyo on 12-06-2022 Natriuretic peptide B (Bld) [Mass/Vol] 950.0 pg/mL 5-100 [facility] Neutrophils Auto (Bld) [#/Vo l]Ordered By: Yusra Santoyo on 12-06-2022 Neutrophils (Bld) [#/Vol] 11.9 10*3/uL 1.8-7.7 [facility] Neutrophils/100 WBC Auto (Bl d)Ordered By: Yusra Santoyo on 12-06-2022 Neutrophils/100 WBC (Bld) 89.9 % . [facility] No Panel InformationOrdered By: Yusra Santoyo on 12-06-2022 Estimated GFR (CKD-EPI) 18.839 mL/Min [facility] Creatinine Clearance (Chem 16.27 [facility] Nucleated erythrocytes [Pres ence] in Blood by Automated countOrdered By: Yusra Santoyo on 12-06-2022 Nucleated RBC Auto Ql (Bld) 0.1 /100{WBC} 0-0.5 [facility] Partial Thromboplastin Timeo n 12-06-2022 aPTT Coag (Bld) [Time] 29.3 s Normal 25.1-36.5 [facility] Comment on above: Result Comment: A he matocrit value greater than 55% may lead to inaccurate results in coagulation testing. Patients having hematocrit values >55% require a special collection tube for coagulation studies. Please contact the laboratory at [phone] for redraw instructions.PERFORMED BY:[facility] [place], [place] [phone] MEDICAL DIRECTORRAMEZ LARSON M.D. Performed By: #### P TT, BMP, PT, BNP, HS TROP, MG, CBC ####[facility] [place] [address] [facility] Platelet mean volume Auto (B ld) [Entitic vol]Ordered By: Yusra Santoyo on 12-06-2022 Platelet mean volume (Bld) [Entitic vol] 7.3 fL 6.3-10.7 [facility] Platelets Auto (Bld) [#/Vol] Ordered By: Yusra Santoyo on 12-06-2022 Platelets (Bld) [#/Vol] 431 10*3/uL 150-450 [facility] Potassium [Moles/volume] in Serum or PlasmaOrdered By: Yusra Santoyo on 12-06-2022 Potassium [Moles/Vol] 3.6 mmol/L 3.5-5.[address] [facility] Prothrombin Time INRon 12-06 INR Coag (PPP) [Relative time] 1.0 {INR} Normal [facility] Comment on above: Result Comment: INR Therapeutic [...] 3 - 4.5 Performed By: #### P TT, BMP, PT, BNP, HS TROP, MG, CBC ####[facility] [id number] [facility] PT Coag (PPP) [Time] 12.4 s Normal 9.0-12.9 [facility] Comment on above: Result Comment: A he matocrit value greater than 55% may lead to inaccurate results in coagulation testing. Patients having hematocrit values >55% require a special collection tube for coagulation studies. Please contact the laboratory at [phone] for redraw instructions. Performed By: #### P TT, BMP, PT, BNP, HS TROP, MG, CBC ####[place] [address] [place] [id number] [facility] Prothrombin time (PT)Ordered By: Yusra Santoyo on 12-06-2022 PT Coag (PPP) [Time] 12.4 s 9.0-12.9 [facility] Comment on above: A hematocrit value g reater than 55% may lead to inaccurate results in coagulation testing. Patients having hematocrit values >55% require a special collection tube for coagulation studies. Please contact the laboratory at [phone] for redraw instructions. RBC Auto (Bld) [#/Vol]Ordere d By: Yusra Santoyo on 12-06-2022 RBC (Bld) [#/Vol] 3.83 10*6/uL 3.60-5.00 [facility] Serum or plasma anion gap de terminationOrdered By: Yusra Santoyo on 12-06-2022 Anion gap [Moles/Vol] 16.7 mmol/L 6.0-15.0 [facility] Sodium [Moles/volume] in Ser um or PlasmaOrdered By: Yusra Santoyo on 12-06-2022 Sodium [Moles/Vol] 132 mmol/L 136-145 [facility] Troponin I High Sensitivityo n 12-06-2022 Troponin I High Sensitivity 17.6 pg/mL High 0.0-15.0 [facility] Comment on above: Result Comment: PERF ORMED BY:[address] [place], [place] [phone] MEDICAL DIRECTORRAMEZ LARSON M.D. Performed By: #### P TT, BMP, PT, BNP, HS TROP, MG, CBC ####[facility] [place] [address] [facility] Troponin I.cardiac [Mass/vol ume] in Serum or Plasma by Detection limit <= 0.01 ng/Ordered By: Yusra Santoyo on 12-06-2022 Troponin I.cardiac DL <= 0.01 ng/mL [Mass/Vol] 17.6 pg/mL 0.0-15.0 [facility] Urea nitrogen [Mass/volume] in Serum or PlasmaOrdered By: Yusra Santoyo on 12-06-2022 Urea nitrogen [Mass/Vol] 25 mg/dL 09-03 [facility] WBC Auto (Bld) [#/Vol]Ordere d By: Yusra Santoyo on 12-06-2022 WBC (Bld) [#/Vol] 13.3 10*3/uL 3.8-11.6 [facility] XR chest 2V*on 12-06-2022 XR chest 2V* Normal [facility] Basic Metabolic Panelon 09-2 Anion gap [Moles/Vol] 13.0 mmol/L Normal 6.0-15.0 [facility] Comment on above: Performed By: #### B MP, CBC ####[place] [address] [place] [id number] [facility] Calcium [Mass/Vol] 9.3 mg/dL Normal 8.6-10.3 [facility] Comment on above: Performed By: #### B MP, CBC ####[address] [place] [address] [place] Chloride [Moles/Vol] 91 mmol/L Low 98-107 [facility] Comment on above: Performed By: #### B MP, CBC ####[address] [place] [address] [place] CO2 [Moles/Vol] 29.9 mmol/L Normal 21.0-31.0 [facility] Comment on above: Performed By: #### B MP, CBC ####[facility] [place] [address] [facility] Creatinine [Mass/Vol] 2.88 mg/dL Significan t change up 0.60-1.20 [facility] Comment on above: Performed By: #### B MP, CBC ####[facility] [place] [address] [place] Creatinine Clr Calc Pharmacy 14.57 [facility] Comment on above: Result Comment: PERF ORMED BY:[address] [place], [place] [phone] MEDICAL DIRECTORRAMEZ LARSON M.D. Performed By: #### B MP, CBC ####[address] [address] [facility] GFR/1.73 sq M.predicted MDRD (S/P/Bld) [Vol rate/Area] 16.510 mL/min/{1.73_m2} [facility] Comment on above: Performed By: #### B MP, CBC ####[address] [address] [facility] Glucose [Mass/Vol] 147 mg/dL High 70-100 [facility] Comment on above: Result Comment: [place] Glucose Reference Range is dependent on time and content of last meal. Glucose of more than 200 mg/dL in a nonstressed, ambulatory subject supports the diagnosis of Diabetes Mellitus. ADA recommended reference range Performed By: #### B MP, CBC ####[facility] [place] [address] [facility] Potassium [Moles/Vol] 3.9 mmol/L Normal 3.5-5.[address] [facility] Comment on above: Performed By: #### B MP, CBC ####[address] [address] [facility] Sodium [Moles/Vol] 130 mmol/L Low 136-145 [facility] Comment on above: Performed By: #### B MP, CBC ####[facility] [id number] [place] [address] [facility] Urea nitrogen [Mass/Vol] 32 mg/dL Significant change up 09-03 [facility] Comment on above: Performed By: #### B MP, CBC ####[facility] [address] [place] [address] [facility] Basophils Auto (Bld) [#/Vol] Ordered By: Carlton Mtz on 10-31-2022 Basophils (Bld) [#/Vol] 0.0 10*3/uL 0.0-0.2 [facility] Basophils/100 WBC Auto (Bld) Ordered By: Carlton Mtz on 10-31-2022 Basophils/100 WBC (Bld) 0.7 % . [facility] Calcium [Mass/volume] in Ser um or PlasmaOrdered By: Carlton Mtz on 10-31-2022 Calcium [Mass/Vol] 9.3 mg/dL 8.6-10.3 [facility] Carbon dioxide, total [Moles /volume] in Serum or PlasmaOrdered By: Carlton Mtz on 10-31-2022 CO2 [Moles/Vol] 29.9 mmol/L 21.0-31.0 [facility] Chloride [Moles/volume] in S steffanie or PlasmaOrdered By: Carlton Mtz on 10-31-2022 Chloride [Moles/Vol] 91 mmol/L 98-107 [facility] Complete Blood Count Auto Di ffon 10-31-2022 Basophils (Bld) [#/Vol] 0.0 10*3/uL Normal 0.0-0.2 [facility] Comment on above: Result Comment: PERF ORMED BY:[facility] [place] [place], [place] [phone] MEDICAL DIRECTORRAMEZ LARSON M.D. Performed By: #### B MP, CBC ####[facility] [place] [address] [facility] Basophils/100 WBC (Bld) 0.7 % Normal . [facility] Comment on above: Performed By: #### B MP, CBC ####[address] [place] [address] [facility] Eosinophils (Bld) [#/Vol] 0.3 10*3/uL Normal 0.0-0.45 [facility] Comment on above: Performed By: #### B MP, CBC ####[address] [address] [facility] Eosinophils/100 WBC (Bld) 4.7 % Normal . [facility] Comment on above: Performed By: #### B MP, CBC ####[place] [id number] [facility] Erythrocyte distribution width (RBC) [Ratio] 16.4 % High 11.9-15.3 [facility] Comment on above: Performed By: #### B MP, CBC ####[address] Hematocrit (Bld) [Volume fraction] 30.1 % Low 34.0-46.4 [facility] Comment on above: Performed By: #### B MP, CBC ####[place] [id number] [facility] Hemoglobin (Bld) [Mass/Vol] 9.7 g/dL Low 11.8-15.4 [facility] Comment on above: Performed By: #### B MP, CBC ####[place] [id number] [facility] Lymphocytes (Bld) [#/Vol] 1.1 10*3/uL Normal 1.00-4.8 [facility] Comment on above: Performed By: #### B MP, CBC ####[place] [id number] [facility] Lymphocytes/100 WBC (Bld) 19.6 % Normal . [facility] Comment on above: Performed By: #### B MP, CBC ####[place] [id number] [facility] MCH (RBC) [Entitic mass] 29.8 pg Normal 24.7-34.3 [facility] Comment on above: Performed By: #### B MP, CBC ####[place] [id number] [facility] MCV (RBC) [Entitic vol] 92.4 fL Normal 80-100 [facility] Comment on above: Performed By: #### B MP, CBC ####[place] [id number] [facility] Mean Corpuscular HGB Conc 32.3 g/dL Normal 32.0-35.0 [facility] Comment on above: Performed By: #### B MP, CBC ####[place] [id number] [facility] Monocytes (Bld) [#/Vol] 0.7 10*3/uL Normal 0.0-0.8 [facility] Comment on above: Performed By: #### B MP, CBC ####[place] [id number] [facility] Monocytes/100 WBC (Bld) 13.8 % Normal . [facility] Comment on above: Performed By: #### B MP, CBC ####[place] [id number] [facility] Neutrophils (Bld) [#/Vol] 3.3 10*3/uL Normal 1.8-7.7 [facility] Comment on above: Performed By: #### B MP, CBC ####[place] [id number] [facility] Neutrophils/100 WBC (Bld) 61.2 % Normal . [facility] Comment on above: Performed By: #### B MP, CBC ####[place] [id number] [facility] NRBC% 0.0 /100{WBC} Normal 0-0.5 [facility] Comment on above: Performed By: #### B MP, CBC ####[place] [id number] [facility] Platelet mean volume (Bld) [Entitic vol] 7.6 fL Normal 6.3-10.7 [facility] Comment on above: Performed By: #### B MP, CBC ####[facility] [place] [id number] [facility] Platelets (Bld) [#/Vol] 300 10*3/uL Normal 150-450 [facility] Comment on above: Performed By: #### B MP, CBC ####[facility] RBC (Bld) [#/Vol] 3.25 10*6/uL Low 3.60-5.00 [facility] Comment on above: Performed By: #### B MP, CBC ####[place] [address] [place] [id number] [facility] WBC (Bld) [#/Vol] 5.4 10*3/uL Normal 3.8-11.6 [facility] Comment on above: Performed By: #### B MP, CBC ####[address] Creatinine [Mass/volume] in Serum or PlasmaOrdered By: Carlton Mtz on 10-31-2022 Creatinine [Mass/Vol] 2.88 mg/dL 0.60-1.[address] [facility] Comment on above: Delta: 5.32 on 10/30 Eosinophils Auto (Bld) [#/Vo l]Ordered By: Carlton Mtz on 10-31-2022 Eosinophils (Bld) [#/Vol] 0.3 10*3/uL 0.0-0.45 [facility] Eosinophils/100 WBC Auto (Bl d)Ordered By: Carlton Mtz on 10-31-2022 Eosinophils/100 WBC (Bld) 4.7 % . [facility] Erythrocyte distribution wid th Auto (RBC) [Ratio]Ordered By: Carlton Mtz on 10-31-2022 Erythrocyte distribution width (RBC) [Ratio] 16.4 % 11.9-15.3 [facility] Glucose Glucometer (BldC) [M ass/Vol]Ordered By: Carlton Mtz on 10-31-2022 Glucose [Mass/Vol] 223 mg/dL [facility] Comment on above: Random Glucose Refer ence Range is dependent on time and content of last meal. Glucose of more than 200 mg/dL in a nonstressed, ambulatory subject supports the diagnosis of Diabetes Mellitus. Glucose Poct Glucometerson 0 10-31-2022 Glucose [Mass/Vol] 223 mg/dL Normal [facility] Comment on above: Result Comment: [place] om Glucose Reference Range is dependent on time and content of last meal. Glucose of more than 200 mg/dL in a nonstressed, ambulatory subject supports the diagnosis of Diabetes Mellitus.PERFORMED BY:[place] [address] [place], [place] [phone] MEDICAL DIRECTORRAMEZ LARSON M.D. Performed By: #### G LULS ####Point of Care testing, Glucose [Mass/Vol] 134 mg/dL Normal [facility] Comment on above: Result Comment: [place] om Glucose Reference Range is dependent on time and content of last meal. Glucose of more than 200 mg/dL in a nonstressed, ambulatory subject supports the diagnosis of Diabetes Mellitus.PERFORMED BY:[place] [address] [place], [place] [phone] MEDICAL DIRECTORRAMEZ LARSON M.D. Performed By: #### G LULS ####Point of Care testing, Glucose [Mass/volume] in Ser um or PlasmaOrdered By: Carlton Mtz on 10-31-2022 Glucose [Mass/Vol] 147 mg/dL 70-100 [facility] Comment on above: ADA recommended refe rence rangeRandom Glucose Reference Range is dependent on time and content of last meal. Glucose of more than 200 mg/dL in a nonstressed, ambulatory subject supports the diagnosis of Diabetes Mellitus. Hematocrit Auto (Bld) [Volum e fraction]Ordered By: Carlton Mtz on 10-31-2022 Hematocrit (Bld) [Volume fraction] 30.1 % 34.0-46.4 [facility] Hemoglobin [Mass/volume] in BloodOrdered By: Carlton Mtz on 10-31-2022 Hemoglobin (Bld) [Mass/Vol] 9.7 g/dL 11.8-15.4 [facility] Leukocytes [#/volume] correc tr for nucleated erythrocytes in Blood by Automated counOrdered By: Carlton Mtz on 10-31-2022 WBC corrected for nucl RBC Auto (Bld) [#/Vol] 5.4 10*3/uL 3.8-11.6 [facility] Lymphocytes Auto (Bld) [#/Vo l]Ordered By: Carlton Mtz on 10-31-2022 Lymphocytes (Bld) [#/Vol] 1.1 10*3/uL 1.00-4.8 [facility] Lymphocytes/100 WBC Auto (Bl d)Ordered By: Carlton Mtz on 10-31-2022 Lymphocytes/100 WBC (Bld) 19.6 % . [facility] MCH Auto (RBC) [Entitic mass ]Ordered By: Carlton Mtz on 10-31-2022 MCH (RBC) [Entitic mass] 29.8 pg 24.7-34.3 [facility] MCHC Auto (RBC) [Mass/Vol]Or dered By: Carlton Mtz on 10-31-2022 MCHC (RBC) [Mass/Vol] 32.3 g/dL 32.0-35.[address] [facility] MCV Auto (RBC) [Entitic vol] Ordered By: Carlton Mzt on 10-31-2022 MCV (RBC) [Entitic vol] 92.4 fL 80-100 [facility] Monocytes Auto (Bld) [#/Vol] Ordered By: Carlton Mtz on 10-31-2022 Monocytes (Bld) [#/Vol] 0.7 10*3/uL 0.0-0.8 [facility] Monocytes/100 WBC Auto (Bld) Ordered By: Carlton Mtz on 10-31-2022 Monocytes/100 WBC (Bld) 13.8 % . [facility] Neutrophils Auto (Bld) [#/Vo l]Ordered By: Carlton Mtz on 10-31-2022 Neutrophils (Bld) [#/Vol] 3.3 10*3/uL 1.8-7.7 [facility] Neutrophils/100 WBC Auto (Bl d)Ordered By: Carlton Mtz on 10-31-2022 Neutrophils/100 WBC (Bld) 61.2 % . [facility] No Panel InformationOrdered By: Carlton Mtz on 10-31-2022 Estimated GFR (CKD-EPI) 16.510 mL/Min [facility] Creatinine Clearance (Chem 14.57 [facility] Nucleated erythrocytes [Pres ence] in Blood by Automated countOrdered By: Carlton Mtz on 10-31-2022 Nucleated RBC Auto Ql (Bld) 0.0 /100{WBC} 0-0.5 [facility] Platelet mean volume Auto (B ld) [Entitic vol]Ordered By: Carlton Mtz on 10-31-2022 Platelet mean volume (Bld) [Entitic vol] 7.6 fL 6.3-10.7 [facility] Platelets Auto (Bld) [#/Vol] Ordered By: Carlton Mtz on 10-31-2022 Platelets (Bld) [#/Vol] 300 10*3/uL 150-450 [facility] Potassium [Moles/volume] in Serum or PlasmaOrdered By: Carlton Mtz on 10-31-2022 Potassium [Moles/Vol] 3.9 mmol/L 3.5-5.[address] [facility] RBC Auto (Bld) [#/Vol]Ordere d By: Carlton Mtz on 10-31-2022 RBC (Bld) [#/Vol] 3.25 10*6/uL 3.60-5.00 [facility] Serum or plasma anion gap de terminationOrdered By: Carlton tMz on 10-31-2022 Anion gap [Moles/Vol] 13.0 mmol/L 6.0-15.0 [facility] Sodium [Moles/volume] in Ser um or PlasmaOrdered By: Carlton Mtz on 10-31-2022 Sodium [Moles/Vol] 130 mmol/L 136-145 [facility] Urea nitrogen [Mass/volume] in Serum or PlasmaOrdered By: Carlton Mtz on 10-31-2022 Urea nitrogen [Mass/Vol] 32 mg/dL 7-25 [facility] Comment on above: Delta: 72 on 3-0518 WBC Auto (Bld) [#/Vol]Ordere d By: Carlton Mtz on 10-31-2022 WBC (Bld) [#/Vol] 5.4 10*3/uL 3.8-11.6 [facility] Basic Metabolic Panelon 10-12 Anion gap [Moles/Vol] 20.5 mmol/L High 6.0-15.0 [facility] Comment on above: Performed By: #### B MP, CBC, MG, PHOS ####[address] Calcium [Mass/Vol] 10.0 mg/dL Normal 8.6-10.3 [facility] Comment on above: Performed By: #### B MP, CBC, MG, PHOS ####[address] Chloride [Moles/Vol] 89 mmol/L Low 98-107 [facility] Comment on above: Performed By: #### B MP, CBC, MG, PHOS ####[place] [id number] [facility] CO2 [Moles/Vol] 24.4 mmol/L Normal 21.0-31.0 [facility] Comment on above: Performed By: #### B MP, CBC, MG, PHOS ####[address] Creatinine [Mass/Vol] 5.32 mg/dL Significan t change up 0.60-1.20 [facility] Comment on above: Performed By: #### B MP, CBC, MG, PHOS ####[address] [place] [address] [place] Creatinine Clr Calc Pharmacy 7.89 [facility] Comment on above: Performed By: #### B MP, CBC, MG, PHOS ####[place] [address] GFR/1.73 sq M.predicted MDRD (S/P/Bld) [Vol rate/Area] 7.905 mL/min/{1.73_m2} [facility] Comment on above: Performed By: #### B MP, CBC, MG, PHOS ####[place] [address] Glucose [Mass/Vol] 191 mg/dL High 70-100 [facility] Comment on above: Result Comment: [place] Glucose Reference Range is dependent on time and content of last meal. Glucose of more than 200 mg/dL in a nonstressed, ambulatory subject supports the diagnosis of Diabetes Mellitus. ADA recommended reference range Performed By: #### B MP, CBC, MG, PHOS ####[place] [address] Potassium [Moles/Vol] 3.9 mmol/L Normal 3.5-5.[address] [facility] Comment on above: Performed By: #### B MP, CBC, MG, PHOS ####[address] Sodium [Moles/Vol] 130 mmol/L Low 136-145 [facility] Comment on above: Performed By: #### B MP, CBC, MG, PHOS ####[place] [id number] [facility] Urea nitrogen [Mass/Vol] 72 mg/dL High 7-25 [facility] Comment on above: Performed By: #### B MP, CBC, MG, PHOS ####[place] [id number] [facility] Complete Blood Count Auto Di ffon 10-30-2022 Basophils (Bld) [#/Vol] 0.1 10*3/uL Normal 0.0-0.2 [facility] Comment on above: Result Comment: PERF ORMED BY:[address] [place], [place] [phone] MEDICAL DIRECTORRAMEZ LARSON M.D. Performed By: #### B MP, CBC, MG, PHOS ####[address] Basophils/100 WBC (Bld) 0.8 % Normal . [facility] Comment on above: Performed By: #### B MP, CBC, MG, PHOS ####[address] Eosinophils (Bld) [#/Vol] 0.3 10*3/uL Normal 0.0-0.45 [facility] Comment on above: Performed By: #### B MP, CBC, MG, PHOS ####[address] Eosinophils/100 WBC (Bld) 3.5 % Normal . [facility] Comment on above: Performed By: #### B MP, CBC, MG, PHOS ####[address] Erythrocyte distribution width (RBC) [Ratio] 16.7 % High 11.9-15.3 [facility] Comment on above: Performed By: #### B MP, CBC, MG, PHOS ####[address] Hematocrit (Bld) [Volume fraction] 28.4 % Low 34.0-46.4 [facility] Comment on above: Performed By: #### B MP, CBC, MG, PHOS ####[address] Hemoglobin (Bld) [Mass/Vol] 9.2 g/dL Low 11.8-15.4 [facility] Comment on above: Performed By: #### B MP, CBC, MG, PHOS ####[address] Lymphocytes (Bld) [#/Vol] 1.1 10*3/uL Normal 1.00-4.8 [facility] Comment on above: Performed By: #### B MP, CBC, MG, PHOS ####[address] Lymphocytes/100 WBC (Bld) 16.2 % Normal . [facility] Comment on above: Performed By: #### B MP, CBC, MG, PHOS ####[address] MCH (RBC) [Entitic mass] 30.3 pg Normal 24.7-34.3 [facility] Comment on above: Performed By: #### B MP, CBC, MG, PHOS ####[address] MCV (RBC) [Entitic vol] 92.9 fL Normal 80-100 [facility] Comment on above: Performed By: #### B MP, CBC, MG, PHOS ####[address] Mean Corpuscular HGB Conc 32.6 g/dL Normal 32.0-35.0 [facility] Comment on above: Performed By: #### B MP, CBC, MG, PHOS ####[address] Monocytes (Bld) [#/Vol] 1.1 10*3/uL High 0.0-0.8 [facility] Comment on above: Performed By: #### B MP, CBC, MG, PHOS ####[address] Monocytes/100 WBC (Bld) 15.5 % Normal . [facility] Comment on above: Performed By: #### B MP, CBC, MG, PHOS ####[address] Neutrophils (Bld) [#/Vol] 4.5 10*3/uL Normal 1.8-7.7 [facility] Comment on above: Performed By: #### B MP, CBC, MG, PHOS ####[address] Neutrophils/100 WBC (Bld) 64.0 % Normal . [facility] Comment on above: Performed By: #### B MP, CBC, MG, PHOS ####[address] NRBC% 0.0 /100{WBC} Normal 0-0.5 [facility] Comment on above: Performed By: #### B MP, CBC, MG, PHOS ####[address] Platelet mean volume (Bld) [Entitic vol] 7.5 fL Normal 6.3-10.7 [facility] Comment on above: Performed By: #### B MP, CBC, MG, PHOS ####[address] Platelets (Bld) [#/Vol] 312 10*3/uL Normal 150-450 [facility] Comment on above: Performed By: #### B MP, CBC, MG, PHOS ####[address] RBC (Bld) [#/Vol] 3.05 10*6/uL Low 3.60-5.00 [facility] Comment on above: Performed By: #### B MP, CBC, MG, PHOS ####[address] WBC (Bld) [#/Vol] 7.1 10*3/uL Normal 3.8-11.6 [facility] Comment on above: Performed By: #### B MP, CBC, MG, PHOS ####[address] ECG 12 lead ECGon 10-30-2022 ECG 12 lead ECG Normal [facility] Glucose Poct Glucometerson 0 10-30-2022 Commemt1 Glu2: Cleaned Meter Normal [facility] Comment on above: Result Comment: PERF ORMED BY:[place] [address] [address] [place], [place] [phone] MEDICAL DIRECTORRAMEZ LARSON M.D. Performed By: #### G LULS ####Point of Care testing, Glucose [Mass/Vol] 181 mg/dL Normal [facility] Comment on above: Result Comment: [place] Glucose Reference Range is dependent on time and content of last meal. Glucose of more than 200 mg/dL in a nonstressed, ambulatory subject supports the diagnosis of Diabetes Mellitus. Performed By: #### G LULS ####Point of Care testing, Glucose [Mass/Vol] 139 mg/dL Normal [facility] Comment on above: Result Comment: [place] Glucose Reference Range is dependent on time and content of last meal. Glucose of more than 200 mg/dL in a nonstressed, ambulatory subject supports the diagnosis of Diabetes Mellitus.PERFORMED BY:[place] [address] [address] [place], [place] [phone] MEDICAL MAJOR LARSON M.D. Performed By: #### G LULS ####Point of Care testing, Glucose [Mass/Vol] 172 mg/dL Normal [facility] Comment on above: Result Comment: [place] Glucose Reference Range is dependent on time and content of last meal. Glucose of more than 200 mg/dL in a nonstressed, ambulatory subject supports the diagnosis of Diabetes Mellitus.PERFORMED BY:[place] [address] [address] [place], [place] [phone] MEDICAL MAJOR LARSON M.D. Performed By: #### G LULS ####Point of Care testing, Glucose [Mass/Vol] 201 mg/dL Normal [facility] Comment on above: Result Comment: [place] Glucose Reference Range is dependent on time and content of last meal. Glucose of more than 200 mg/dL in a nonstressed, ambulatory subject supports the diagnosis of Diabetes Mellitus.PERFORMED BY:[place] [address] [address] [place], [place] [phone] MEDICAL DIRECTORRAMEZ SUN M.D. Performed By: #### G LULS ####Point of Care testing, Magnesiumon 10-30-2022 Magnesium [Mass/Vol] 2.4 mg/dL Normal 1.9-2.7 [facility] Comment on above: Result Comment: PERF ORMED BY:[place] [address] [address] [place], [place] [phone] MEDICAL MAJOR LARSON M.D. Performed By: #### B MP, CBC, MG, PHOS ####[address] [address] [facility] Magnesium [Mass/volume] in S steffanie or PlasmaOrdered By: Malika Arreaga on 10-30-2022 Magnesium [Mass/Vol] 2.4 mg/dL 1.9-2.7 [facility] No Panel InformationOrdered By: Carlton Mtz on 10-30-2022 Bedside Glucose Comment Glu2: cleaned meter [facility] Phosphate [Mass/volume] in S steffanie or PlasmaOrdered By: Malika Arreaga on 10-30-2022 Phosphate [Mass/Vol] 6.4 mg/dL 3.7-7.2 [facility] Phosphoruson 10-30-2022 Phosphate [Mass/Vol] 6.4 mg/dL Normal 3.7-7.2 [facility] Comment on above: Performed By: #### B MP, CBC, MG, PHOS ####[address] [address] [facility] Troponin I High Sensitivityo n 10-30-2022 Troponin I High Sensitivity 29.9 pg/mL High 0.0-15.0 [facility] Comment on above: Result Comment: PERF ORMED BY:[place] [address] [place], [place] [phone] MEDICAL MAJOR LARSON M.D. Performed By: #### H S TROP ####[address] [address] [facility] Troponin I.cardiac [Mass/vol ume] in Serum or Plasma by Detection limit <= 0.01 ng/Ordered By: Gary Almaguer on 10-30-2022 Troponin I.cardiac DL <= 0.01 ng/mL [Mass/Vol] 29.9 pg/mL 0.0-15.0 [facility] XR chest 1V portableon 10-30 XR chest 1V portable Normal [facility] XR shoulder LT min 2V*on XR shoulder LT min 2V* Normal [facility] Activated partial thrombopla stin time (aPTT) in platelet poor plasma by coagulation aOrdered By: Azar Palmer on 10-29-2022 aPTT Coag (PPP) [Time] 30.5 s 25.1-36.5 [facility] Comment on above: A hematocrit value g reater than 55% may lead to inaccurate results in coagulation testing. Patients having hematocrit values >55% require a special collection tube for coagulation studies. Please contact the laboratory at [phone] for redraw instructions. Alanine aminotransferase [En zymatic activity/volume] in Serum or PlasmaOrdered By: Azar Palmer on 10-29-2022 ALT [Catalytic activity/Vol] 19 U/L 7-52 [facility] Albumin [Mass/volume] in Ser um or Plasma by Bromocresol green (BCG) dye binding methoOrdered By: Azar Palmer on 10-29-2022 Albumin BCG dye [Mass/Vol] 3.5 g/dL 3.5-5.7 [facility] Alkaline phosphatase [Enzyma tic activity/volume] in Serum or PlasmaOrdered By: Azar Palmer on 10-29-2022 ALP [Catalytic activity/Vol] 135 U/L 34-104 [facility] Aspartate aminotransferase [ Enzymatic activity/volume] in Serum or PlasmaOrdered By: Azar Palmer on 10-29-2022 AST [Catalytic activity/Vol] 19 U/L 13-39 [facility] B-Type Natriuretic Peptideon 10-29-2022 Natriuretic peptide B (Bld) [Mass/Vol] 806.0 pg/mL High 5-100 [facility] Comment on above: Result Comment: PERF ORMED BY:[place] [address] [address] [place], [place] [phone] MEDICAL DIRECTORRAMEZ LARSON M.D. Performed By: #### H S TROP, PT, BNP, PTT, CMP, CK, CBC ####[facility] [place] [address] [place] Basophils Auto (Bld) [#/Vol] Ordered By: Azar Palmer on 10-29-2022 Basophils (Bld) [#/Vol] 0.0 10*3/uL 0.0-0.2 [facility] Basophils/100 WBC Auto (Bld) Ordered By: Azar Palmer on 10-29-2022 Basophils/100 WBC (Bld) 0.5 % . [facility] Bilirubin.total [Mass/volume ] in Serum or PlasmaOrdered By: Azar Palmer on 10-29-2022 Bilirubin [Mass/Vol] 0.4 mg/dL 0.3-1.[address] [facility] [address] cervical spine wo conon 0 10-29-2022 CT cervical spine wo con Normal [facility] CT head/brain wo conon 10-29 CT head/brain wo con Normal [facility] Calcium [Mass/volume] in Ser um or PlasmaOrdered By: Azar Palmer on 10-29-2022 Calcium [Mass/Vol] 10.2 mg/dL 8.6-10.3 [facility] Carbon dioxide, total [Moles /volume] in Serum or PlasmaOrdered By: Azar Palmer on 10-29-2022 CO2 [Moles/Vol] 23.3 mmol/L 21.0-31.0 [facility] Chloride [Moles/volume] in S steffanie or PlasmaOrdered By: Azar Palmer on 10-29-2022 Chloride [Moles/Vol] 90 mmol/L 98-107 [facility] Complete Blood Count Auto Di ffon 10-29-2022 Basophils (Bld) [#/Vol] 0.0 10*3/uL Normal 0.0-0.2 [facility] Comment on above: Result Comment: PERF ORMED BY:[facility] [place], [place] [phone] MEDICAL DIRECTORRAMEZ LARSON M.D. Performed By: #### H S TROP, PT, BNP, PTT, CMP, CK, CBC ####[address] Basophils/100 WBC (Bld) 0.5 % Normal . [facility] Comment on above: Performed By: #### H S TROP, PT, BNP, PTT, CMP, CK, CBC ####[address] Eosinophils (Bld) [#/Vol] 0.2 10*3/uL Normal 0.0-0.45 [facility] Comment on above: Performed By: #### H S TROP, PT, BNP, PTT, CMP, CK, CBC ####[address] Eosinophils/100 WBC (Bld) 3.5 % Normal . [facility] Comment on above: Performed By: #### H S TROP, PT, BNP, PTT, CMP, CK, CBC ####[address] Erythrocyte distribution width (RBC) [Ratio] 17.1 % High 11.9-15.3 [facility] Comment on above: Performed By: #### H S TROP, PT, BNP, PTT, CMP, CK, CBC ####[address] Hematocrit (Bld) [Volume fraction] 32.7 % Low 34.0-46.4 [facility] Comment on above: Performed By: #### H S TROP, PT, BNP, PTT, CMP, CK, CBC ####[address] Hemoglobin (Bld) [Mass/Vol] 10.7 g/dL Low 11.8-15.4 [facility] Comment on above: Performed By: #### H S TROP, PT, BNP, PTT, CMP, CK, CBC ####[address] Lymphocytes (Bld) [#/Vol] 1.0 10*3/uL Normal 1.00-4.8 [facility] Comment on above: Performed By: #### H S TROP, PT, BNP, PTT, CMP, CK, CBC ####[address] Lymphocytes/100 WBC (Bld) 14.3 % Normal . [facility] Comment on above: Performed By: #### H S TROP, PT, BNP, PTT, CMP, CK, CBC ####[address] MCH (RBC) [Entitic mass] 30.2 pg Normal 24.7-34.3 [facility] Comment on above: Performed By: #### H S TROP, PT, BNP, PTT, CMP, CK, CBC ####[address] MCV (RBC) [Entitic vol] 92.1 fL Normal 80-100 [facility] Comment on above: Performed By: #### H S TROP, PT, BNP, PTT, CMP, CK, CBC ####[address] Mean Corpuscular HGB Conc 32.8 g/dL Normal 32.0-35.0 [facility] Comment on above: Performed By: #### H S TROP, PT, BNP, PTT, CMP, CK, CBC ####[address] Monocytes (Bld) [#/Vol] 0.9 10*3/uL High 0.0-0.8 [facility] Comment on above: Performed By: #### H S TROP, PT, BNP, PTT, CMP, CK, CBC ####[address] Monocytes/100 WBC (Bld) 24.74 % High 0.00-20.00 [facility] Comment on above: Result Comment: For adults in ED, MDW > 20.0 may be associated with a higher risk of sepsis during the first 12 hrs of hospital admission Performed By: #### H S TROP, PT, BNP, PTT, CMP, CK, CBC ####[address] Monocytes/100 WBC (Bld) 13.3 % Normal . [facility] Comment on above: Performed By: #### H S TROP, PT, BNP, PTT, CMP, CK, CBC ####[address] Neutrophils (Bld) [#/Vol] 4.6 10*3/uL Normal 1.8-7.7 [facility] Comment on above: Performed By: #### H S TROP, PT, BNP, PTT, CMP, CK, CBC ####[address] Neutrophils/100 WBC (Bld) 68.4 % Normal . [facility] Comment on above: Performed By: #### H S TROP, PT, BNP, PTT, CMP, CK, CBC ####[address] NRBC% 0.1 /100{WBC} Normal 0-0.5 [facility] Comment on above: Performed By: #### H S TROP, PT, BNP, PTT, CMP, CK, CBC ####[address] Platelet mean volume (Bld) [Entitic vol] 7.7 fL Normal 6.3-10.7 [facility] Comment on above: Performed By: #### H S TROP, PT, BNP, PTT, CMP, CK, CBC ####[address] Platelets (Bld) [#/Vol] 371 10*3/uL Normal 150-450 [facility] Comment on above: Performed By: #### H S TROP, PT, BNP, PTT, CMP, CK, CBC ####[address] RBC (Bld) [#/Vol] 3.55 10*6/uL Low 3.60-5.00 [facility] Comment on above: Performed By: #### H S TROP, PT, BNP, PTT, CMP, CK, CBC ####[address] WBC (Bld) [#/Vol] 6.7 10*3/uL Normal 3.8-11.6 [facility] Comment on above: Performed By: #### H S TROP, PT, BNP, PTT, CMP, CK, CBC ####[address] Comprehensive Metabolic Pane eliseo 10-29-2022 Albumin [Mass/Vol] 3.5 g/dL Normal 3.5-5.7 [facility] Comment on above: Performed By: #### H S TROP, PT, BNP, PTT, CMP, CK, CBC ####[address] Albumin/Globulin [Mass ratio] 0.9 {ratio} Normal [facility] Comment on above: Performed By: #### H S TROP, PT, BNP, PTT, CMP, CK, CBC ####[address] ALP [Catalytic activity/Vol] 135 U/L High 34-104 [facility] Comment on above: Performed By: #### H S TROP, PT, BNP, PTT, CMP, CK, CBC ####[address] ALT [Catalytic activity/Vol] 19 U/L Normal 7-52 [facility] Comment on above: Performed By: #### H S TROP, PT, BNP, PTT, CMP, CK, CBC ####[place] [id number] [facility] Anion gap [Moles/Vol] 17.4 mmol/L High 6.0-15.0 [facility] Comment on above: Performed By: #### H S TROP, PT, BNP, PTT, CMP, CK, CBC ####[address] AST [Catalytic activity/Vol] 19 U/L Normal 13-39 [facility] Comment on above: Performed By: #### H S TROP, PT, BNP, PTT, CMP, CK, CBC ####[address] Bilirubin [Mass/Vol] 0.4 mg/dL Normal 0.3-1.0 [facility] Comment on above: Performed By: #### H S TROP, PT, BNP, PTT, CMP, CK, CBC ####[address] Calcium [Mass/Vol] 10.2 mg/dL Normal 8.6-10.3 [facility] Comment on above: Performed By: #### H S TROP, PT, BNP, PTT, CMP, CK, CBC ####[address] Chloride [Moles/Vol] 90 mmol/L Low 98-107 [facility] Comment on above: Performed By: #### H S TROP, PT, BNP, PTT, CMP, CK, CBC ####[place] [id number] [facility] CO2 [Moles/Vol] 23.3 mmol/L Normal 21.0-31.0 [facility] Comment on above: Performed By: #### H S TROP, PT, BNP, PTT, CMP, CK, CBC ####[place] [id number] [facility] Creatinine [Mass/Vol] 4.72 mg/dL High 0.60-1.[address] [facility] Comment on above: Performed By: #### H S TROP, PT, BNP, PTT, CMP, CK, CBC ####[place] [id number] [facility] Creatinine Clr Calc Pharmacy 8.89 Normal [facility] Comment on above: Result Comment: PERF ORMED BY:[address] [place], [place] [phone] MEDICAL MAJOR LARSON M.D. Performed By: #### H S TROP, PT, BNP, PTT, CMP, CK, CBC ####[place] [address] GFR/1.73 sq M.predicted MDRD (S/P/Bld) [Vol rate/Area] 9.126 mL/min/{1.73_m2} Normal [facility] Comment on above: Performed By: #### H S TROP, PT, BNP, PTT, CMP, CK, CBC ####[address] Globulin (S) [Mass/Vol] 4.1 g/dL [facility] Comment on above: Performed By: #### H S TROP, PT, BNP, PTT, CMP, CK, CBC ####[address] Glucose [Mass/Vol] 191 mg/dL High 70-100 [facility] Comment on above: Result Comment: [facility][note 3] Glucose Reference Range is dependent on time and content of last meal. Glucose of more than 200 mg/dL in a nonstressed, ambulatory subject supports the diagnosis of Diabetes Mellitus. ADA recommended reference range Performed By: #### H S TROP, PT, BNP, PTT, CMP, CK, CBC ####[address] Potassium [Moles/Vol] 3.7 mmol/L Normal 3.5-5.[address] [facility] Comment on above: Performed By: #### H S TROP, PT, BNP, PTT, CMP, CK, CBC ####[address] Protein [Mass/Vol] 7.6 g/dL Normal 6.4-8.9 [facility] Comment on above: Performed By: #### H S TROP, PT, BNP, PTT, CMP, CK, CBC ####[address] Sodium [Moles/Vol] 127 mmol/L Low 136-145 [facility] Comment on above: Performed By: #### H S TROP, PT, BNP, PTT, CMP, CK, CBC ####[facility] [id number] [place] [address] [place] Urea nitrogen [Mass/Vol] 63 mg/dL High 7- [facility] Comment on above: Performed By: #### H S TROP, PT, BNP, PTT, CMP, CK, CBC ####[facility] [id number] [place] [address] [facility] Creatine Kinaseon 10-29-2022 CK [Catalytic activity/Vol] 29 U/L Low 30 [facility] Comment on above: Performed By: #### H S TROP, PT, BNP, PTT, CMP, CK, CBC ####[facility] [address] [place] [address] [facility] Creatine kinase [Enzymatic a ctivity/volume] in Serum or PlasmaOrdered By: Azar Palmer on 10-29-2022 CK [Catalytic activity/Vol] 29 U/L [facility] Creatinine [Mass/volume] in Serum or PlasmaOrdered By: zAar Palmer on 10-29-2022 Creatinine [Mass/Vol] 4.72 mg/dL 0.60-1.[address] [facility] ECG 12 lead ECGon 10-29-2022 ECG 12 lead ECG Normal [facility] Eosinophils Auto (Bld) [#/Vo l]Ordered By: Azar Palmer on 10-29-2022 Eosinophils (Bld) [#/Vol] 0.2 10*3/uL 0.0-0.45 [facility] Eosinophils/100 WBC Auto (Bl d)Ordered By: Azar Palmer on 10-29-2022 Eosinophils/100 WBC (Bld) 3.5 % . [facility] Erythrocyte distribution wid th Auto (RBC) [Ratio]Ordered By: Azar Palmer on 10-29-2022 Erythrocyte distribution width (RBC) [Ratio] 17.1 % 11.9-15.3 [facility] Globulin Calc (S) [Mass/Vol] Ordered By: Azar Palmer on 10-29-2022 Globulin (S) [Mass/Vol] 4.1 g/dL [facility] Glucose [Mass/volume] in Ser um or PlasmaOrdered By: Azar Palmer on 10-29-2022 Glucose [Mass/Vol] 191 mg/dL 70-100 [facility] Comment on above: ADA recommended refe rence rangeRandom Glucose Reference Range is dependent on time and content of last meal. Glucose of more than 200 mg/dL in a nonstressed, ambulatory subject supports the diagnosis of Diabetes Mellitus. Hematocrit Auto (Bld) [Volum e fraction]Ordered By: Azar Palmer on 10-29-2022 Hematocrit (Bld) [Volume fraction] 32.7 % 34.0-46.4 [facility] Hemoglobin [Mass/volume] in BloodOrdered By: Azar Palmer on 10-29-2022 Hemoglobin (Bld) [Mass/Vol] 10.7 g/dL 11.8-15.4 [facility] INR in Platelet poor plasma by Coagulation assayOrdered By: Azar Palmer on 10-29-2022 INR Coag (PPP) [Relative time] 1.1 {INR} [facility] Comment on above: INR Therapeutic Rang e [...] RBC Auto (Bld) [#/Vol] 6.7 10*3/uL 3.8-11.6 [facility] Lymphocytes Auto (Bld) [#/Vo l]Ordered By: Azar Palmer on 10-29-2022 Lymphocytes (Bld) [#/Vol] 1.0 10*3/uL 1.00-4.8 [facility] Lymphocytes/100 WBC Auto (Bl d)Ordered By: Azar Palmer on 10-29-2022 Lymphocytes/100 WBC (Bld) 14.3 % . [facility] MCH Auto (RBC) [Entitic mass ]Ordered By: Aazr Palmer on 10-29-2022 MCH (RBC) [Entitic mass] 30.2 pg 24.7-34.3 [facility] MCHC Auto (RBC) [Mass/Vol]Or dered By: Azar Palmer on 10-29-2022 MCHC (RBC) [Mass/Vol] 32.8 g/dL 32.0-35.0 [facility] MCV Auto (RBC) [Entitic vol] Ordered By: Azar Palmer on 10-29-2022 MCV (RBC) [Entitic vol] 92.1 fL 80-100 [facility] Monocyte distribution width [Entitic volume] in Blood by AutomatedOrdered By: Azar Palmer on 10-29-2022 Monocyte distribution width Auto (Bld) [Entitic vol] 24.74 % 0.00-20.00 [facility] Comment on above: For adults in ED, MD W > 20.0 may be associated with a higher risk of sepsis during the first 12 hrs of hospital admission Monocytes Auto (Bld) [#/Vol] Ordered By: Azar Palmer on 10-29-2022 Monocytes (Bld) [#/Vol] 0.9 10*3/uL 0.0-0.8 [facility] Monocytes/100 WBC Auto (Bld) Ordered By: Azar Palmer on 10-29-2022 Monocytes/100 WBC (Bld) 13.3 % . [facility] Natriuretic peptide B [Mass/ Vol]Ordered By: Azar Palmer on 10-29-2022 Natriuretic peptide B (Bld) [Mass/Vol] 806.0 pg/mL 5-100 [facility] Neutrophils Auto (Bld) [#/Vo l]Ordered By: Azar Palmer on 10-29-2022 Neutrophils (Bld) [#/Vol] 4.6 10*3/uL 1.8-7.7 [facility] Neutrophils/100 WBC Auto (Bl d)Ordered By: Azar Palmer on 10-29-2022 Neutrophils/100 WBC (Bld) 68.4 % . [facility] No Panel InformationOrdered By: Azar Palmer on 10-29-2022 Estimated GFR (CKD-EPI) 9.126 mL/Min [facility] Creatinine Clearance (Chem 8.89 [facility] Nucleated erythrocytes [Pres ence] in Blood by Automated countOrdered By: zAar Palmer on 10-29-2022 Nucleated RBC Auto Ql (Bld) 0.1 /100{WBC} 0-0.5 [facility] Partial Thromboplastin Timeo n 10-29-2022 aPTT Coag (Bld) [Time] 30.5 s Normal 25.1-36.5 [facility] Comment on above: Result Comment: A he matocrit value greater than 55% may lead to inaccurate results in coagulation testing. Patients having hematocrit values >55% require a special collection tube for coagulation studies. Please contact the laboratory at [phone] for redraw instructions.PERFORMED BY:[facility] [place], [place] [phone] MEDICAL DIRECTORRAMEZ LARSON M.D. Performed By: #### H S TROP, PT, BNP, PTT, CMP, CK, CBC ####[facility] [place] [address] [facility] Platelet mean volume Auto (B ld) [Entitic vol]Ordered By: Azar Palmer on 10-29-2022 Platelet mean volume (Bld) [Entitic vol] 7.7 fL 6.3-10.7 [facility] Platelets Auto (Bld) [#/Vol] Ordered By: Azar Palmer on 10-29-2022 Platelets (Bld) [#/Vol] 371 10*3/uL 150-450 [facility] Potassium [Moles/volume] in Serum or PlasmaOrdered By: Azar Palmer on 10-29-2022 Potassium [Moles/Vol] 3.7 mmol/L 3.5-5.[address] [facility] Protein [Mass/volume] in Ser um or PlasmaOrdered By: Azar Palmer on 10-29-2022 Protein [Mass/Vol] 7.6 g/dL 6.4-8.9 [facility] Prothrombin Time INRon 10-29 INR Coag (PPP) [Relative time] 1.1 {INR} Normal [facility] Comment on above: Result Comment: INR Therapeutic [...] 4.5 Performed By: #### H S TROP, PT, BNP, PTT, CMP, CK, CBC ####[facility] [id number] [place] [id number] [facility] PT Coag (PPP) [Time] 12.5 s Normal 9.0-12.9 [facility] Comment on above: Result Comment: A he matocrit value greater than 55% may lead to inaccurate results in coagulation testing. Patients having hematocrit values >55% require a special collection tube for coagulation studies. Please contact the laboratory at [phone] for redraw instructions. Performed By: #### H S TROP, PT, BNP, PTT, CMP, CK, CBC ####[facility] [place] [id number] [facility] Prothrombin time (PT)Ordered By: Azar Palmer on 10-29-2022 PT Coag (PPP) [Time] 12.5 s 9.0-12.9 [facility] Comment on above: A hematocrit value g reater than 55% may lead to inaccurate results in coagulation testing. Patients having hematocrit values >55% require a special collection tube for coagulation studies. Please contact the laboratory at [phone] for redraw instructions. RBC Auto (Bld) [#/Vol]Ordere d By: Azar Palmer on 10-29-2022 RBC (Bld) [#/Vol] 3.55 10*6/uL 3.60-5.00 [facility] Serum or plasma albumin/glob ulin mass ratioOrdered By: Azar Palmer on 10-29-2022 Albumin/Globulin [Mass ratio] 0.9 {ratio} [facility] Serum or plasma anion gap de terminationOrdered By: Azar Palmer on 10-29-2022 Anion gap [Moles/Vol] 17.4 mmol/L 6.0-15.0 [facility] Sodium [Moles/volume] in Ser um or PlasmaOrdered By: Azar Palmer on 10-29-2022 Sodium [Moles/Vol] 127 mmol/L 136-145 [facility] Troponin I High Sensitivityo n 10-29-2022 Troponin I High Sensitivity 33.1 pg/mL High 0.0-15.0 [facility] Comment on above: Result Comment: PERF ORMED BY:[facility] [place], [place] [phone] MEDICAL DIRECTORRAMEZ LARSON M.D. Performed By: #### H S TROP, PT, BNP, PTT, CMP, CK, CBC ####[facility] [place] [address] [facility] Troponin I.cardiac [Mass/vol ume] in Serum or Plasma by Detection limit <= 0.01 ng/Ordered By: Azar Palmer on 10-29-2022 Troponin I.cardiac DL <= 0.01 ng/mL [Mass/Vol] 33.1 pg/mL 0.0-15.0 [facility] Urea nitrogen [Mass/volume] in Serum or PlasmaOrdered By: Azar Palmer on 10-29-2022 Urea nitrogen [Mass/Vol] 63 mg/dL 09-03 [facility] WBC Auto (Bld) [#/Vol]Ordere d By: Azar Palmer on 10-29-2022 WBC (Bld) [#/Vol] 6.7 10*3/uL 3.8-11.6 [facility] Office Visiton 10-04-2022 Follow-up visit [id number] Wilbert Wilson 1945 F Date Provider Department Center 10/04/2022 Hussain-[facility] No family history on file Level of Service:00944 [place] OFFICE/OUTPATIENT ESTABLISHED MOD MDM 30-39 MIN Normal [facility] Office Visiton 09-09-2022 Follow-up visit [id number] Wilbert Wilson 1945 F Date Provider Department Center 09/09/2022 120-LAURA ALFORD CARD [facility] No family history on file Level of Service:19613 [place] OFFICE/OUTPATIENT ESTABLISHED LOW MDM 20-29 MIN Normal [facility] Office Visiton 08-06-2022 Follow-up visit [id number] Wilbert Wilson 1945 F Date Provider Department Center 08/06/2022 120-PRASHANTH, LAURA BH [facility] Hos No family history on file Level of Service:91877 [place] OFFICE/OUTPATIENT ESTABLISHED MOD MDM 30-39 MIN Normal [facility] MG MAMM SCREEN TRI W CADon 0 05-31-2022 MG MAMM SCREEN TRI W CAD Normal [facility] Albumin [Mass/volume] in Ser um or Plasma by Bromocresol green (BCG) dye binding methoOrdered By: Narinder Toussaint on 05-20-2022 Albumin BCG dye [Mass/Vol] 3.2 g/dL 3.5-5.7 [facility] Basophils Auto (Bld) [#/Vol] Ordered By: Jamal Schaefer on 05-20-2022 Basophils (Bld) [#/Vol] 0.0 10*3/uL 0.0-0.2 [facility] Basophils/100 WBC Auto (Bld) Ordered By: Jamal Schaefer on 05-20-2022 Basophils/100 WBC (Bld) 0.6 % . [facility] Calcium [Mass/volume] in Ser um or PlasmaOrdered By: Narinder Toussaint on 05-20-2022 Calcium [Mass/Vol] 9.4 mg/dL 8.6-10.3 [facility] Carbon dioxide, total [Moles /volume] in Serum or PlasmaOrdered By: Narinder Toussaint on 05-20-2022 CO2 [Moles/Vol] 28.1 mmol/L 21.0-31.0 [facility] Chloride [Moles/volume] in S steffanie or PlasmaOrdered By: Narinder Toussaint on 05-20-2022 Chloride [Moles/Vol] 97 mmol/L 98-107 [facility] Complete Blood Count Auto Di ffon 05-20-2022 Basophils (Bld) [#/Vol] 0.0 10*3/uL Normal 0.0-0.2 [facility] Comment on above: Result Comment: PERF ORMED BY:[facility] [place], [place] [phone] MEDICAL DIRECTORRAMEZ LARSON M.D. Performed By: #### C BC ####[facility] [address] Basophils/100 WBC (Bld) 0.6 % Normal . [facility] Comment on above: Performed By: #### C BC ####[address] Eosinophils (Bld) [#/Vol] 0.5 10*3/uL High 0.0-0.45 [facility] Comment on above: Performed By: #### C BC ####[address] Eosinophils/100 WBC (Bld) 6.3 % Normal . [facility] Comment on above: Performed By: #### C BC ####[address] Erythrocyte distribution width (RBC) [Ratio] 18.5 % High 11.9-15.3 [facility] Comment on above: Performed By: #### C BC ####[address] Hematocrit (Bld) [Volume fraction] 25.5 % Low 34.0-46.4 [facility] Comment on above: Performed By: #### C BC ####[address] Hemoglobin (Bld) [Mass/Vol] 8.3 g/dL Low 11.8-15.4 [facility] Comment on above: Performed By: #### C BC ####[address] Lymphocytes (Bld) [#/Vol] 1.0 10*3/uL Normal 1.00-4.8 [facility] Comment on above: Performed By: #### C BC ####[address] Lymphocytes/100 WBC (Bld) 12.8 % Normal . [facility] Comment on above: Performed By: #### C BC ####[address] MCH (RBC) [Entitic mass] 30.4 pg Normal 24.7-34.3 [facility] Comment on above: Performed By: #### C BC ####[place] [id number] [facility] MCV (RBC) [Entitic vol] 92.7 fL Normal 80-100 [facility] Comment on above: Performed By: #### C BC ####[place] [id number] [facility] Mean Corpuscular HGB Conc 32.8 g/dL Normal 32.0-35.0 [facility] Comment on above: Performed By: #### C BC ####[place] [id number] [facility] Monocytes (Bld) [#/Vol] 1.0 10*3/uL High 0.0-0.8 [facility] Comment on above: Performed By: #### C BC ####[address] Monocytes/100 WBC (Bld) 13.0 % Normal . [facility] Comment on above: Performed By: #### C BC ####[place] [id number] [facility] Neutrophils (Bld) [#/Vol] 5.2 10*3/uL Normal 1.8-7.7 [facility] Comment on above: Performed By: #### C BC ####[place] [id number] [facility] Neutrophils/100 WBC (Bld) 67.3 % Normal . [facility] Comment on above: Performed By: #### C BC ####[place] [id number] [facility] NRBC% 0.0 /100{WBC} Normal 0-0.5 [facility] Comment on above: Performed By: #### C BC ####[place] [id number] [facility] Platelet mean volume (Bld) [Entitic vol] 7.5 fL Normal 6.3-10.7 [facility] Comment on above: Performed By: #### C BC ####[facility] [place] [address] [facility] Platelets (Bld) [#/Vol] 241 10*3/uL Normal 150-450 [facility] Comment on above: Performed By: #### C BC ####[facility] [place] [address] [facility] RBC (Bld) [#/Vol] 2.75 10*6/uL Low 3.60-5.00 [facility] Comment on above: Performed By: #### C BC ####[place] [address] [place] [address] [facility] WBC (Bld) [#/Vol] 7.7 10*3/uL Normal 3.8-11.6 [facility] Comment on above: Performed By: #### C BC ####[address] [address] [facility] Creatinine [Mass/volume] in Serum or PlasmaOrdered By: Narinder Toussaint on 05-20-2022 Creatinine [Mass/Vol] 3.81 mg/dL 0.60-1.[address] [facility] Comment on above: Delta: 2.90 on 05/19-0 Eosinophils Auto (Bld) [#/Vo l]Ordered By: Jamal Schaefer on 05-20-2022 Eosinophils (Bld) [#/Vol] 0.5 10*3/uL 0.0-0.45 [facility] Eosinophils/100 WBC Auto (Bl d)Ordered By: Jamal Schaefer on 05-20-2022 Eosinophils/100 WBC (Bld) 6.3 % . [facility] Erythrocyte distribution wid th Auto (RBC) [Ratio]Ordered By: Jamal Schaefer on 05-20-2022 Erythrocyte distribution width (RBC) [Ratio] 18.5 % 11.9-15.3 [facility] Glucose Glucometer (BldC) [M ass/Vol]Ordered By: Teresa Pagan on 05-20-2022 Glucose [Mass/Vol] 107 mg/dL [facility] Comment on above: Random Glucose Refer ence Range is dependent on time and content of last meal. Glucose of more than 200 mg/dL in a nonstressed, ambulatory subject supports the diagnosis of Diabetes Mellitus. Glucose Poct Glucometerson 0 05-20-2022 Commemt1 Glu2: Cleaned Meter Normal [facility] Comment on above: Result Comment: PERF ORMED BY:[facility] [place], [place] [phone] MEDICAL DIRECTORRAMEZ LARSON M.D. Performed By: #### G LULS ####Point of Care testing, Glucose [Mass/Vol] 107 mg/dL Normal [facility] Comment on above: Result Comment: Toutle om Glucose Reference Range is dependent on time and content of last meal. Glucose of more than 200 mg/dL in a nonstressed, ambulatory subject supports the diagnosis of Diabetes Mellitus. Performed By: #### G LULS ####Point of Care testing, Glucose [Mass/Vol] 155 mg/dL Normal [facility] Comment on above: Result Comment: Toutle om Glucose Reference Range is dependent on time and content of last meal. Glucose of more than 200 mg/dL in a nonstressed, ambulatory subject supports the diagnosis of Diabetes Mellitus.PERFORMED BY:[place] [address] [place], [place] [phone] MEDICAL DIRECTORRAMEZ LARSON M.D. Performed By: #### G LULS ####Point of Care testing, Glucose [Mass/volume] in Ser um or PlasmaOrdered By: Narinder Toussaint on 05-20-2022 Glucose [Mass/Vol] 103 mg/dL 70-100 [facility] Comment on above: ADA recommended refe rence rangeRandom Glucose Reference Range is dependent on time and content of last meal. Glucose of more than 200 mg/dL in a nonstressed, ambulatory subject supports the diagnosis of Diabetes Mellitus. Hematocrit Auto (Bld) [Volum e fraction]Ordered By: Jamal Schaefer on 05-20-2022 Hematocrit (Bld) [Volume fraction] 25.5 % 34.0-46.4 [facility] Hemoglobin [Mass/volume] in BloodOrdered By: Jamal Schaefer on 05-20-2022 Hemoglobin (Bld) [Mass/Vol] 8.3 g/dL 11.8-15.4 [facility] Leukocytes [#/volume] correc tr for nucleated erythrocytes in Blood by Automated counOrdered By: Jamal Schaefer on 05-20-2022 WBC corrected for nucl RBC Auto (Bld) [#/Vol] 7.7 10*3/uL 3.8-11.6 [facility] Lymphocytes Auto (Bld) [#/Vo l]Ordered By: Jamal Schaefer on 05-20-2022 Lymphocytes (Bld) [#/Vol] 1.0 10*3/uL 1.00-4.8 [facility] Lymphocytes/100 WBC Auto (Bl d)Ordered By: Jamla Schaefer on 05-20-2022 Lymphocytes/100 WBC (Bld) 12.8 % . [facility] MCH Auto (RBC) [Entitic mass ]Ordered By: Jamal Schaefer on 05-20-2022 MCH (RBC) [Entitic mass] 30.4 pg 24.7-34.3 [facility] MCHC Auto (RBC) [Mass/Vol]Or dered By: Jamal Schaefer on 05-20-2022 MCHC (RBC) [Mass/Vol] 32.8 g/dL 32.0-35.[address] [facility] MCV Auto (RBC) [Entitic vol] Ordered By: Jamal Schaefer on 05-20-2022 MCV (RBC) [Entitic vol] 92.7 fL 80-100 [facility] Monocytes Auto (Bld) [#/Vol] Ordered By: Jamal Schaefer on 05-20-2022 Monocytes (Bld) [#/Vol] 1.0 10*3/uL 0.0-0.8 [facility] Monocytes/100 WBC Auto (Bld) Ordered By: Jamal Schaefer on 05-20-2022 Monocytes/100 WBC (Bld) 13.0 % . [facility] Neutrophils Auto (Bld) [#/Vo l]Ordered By: Jamal Schaefer on 05-20-2022 Neutrophils (Bld) [#/Vol] 5.2 10*3/uL 1.8-7.7 [facility] Neutrophils/100 WBC Auto (Bl d)Ordered By: Jamal Schaefer on 05-20-2022 Neutrophils/100 WBC (Bld) 67.3 % . [facility] No Panel InformationOrdered By: Teresa Pagan on 05-20-2022 Bedside Glucose Comment Glu2: cleaned meter [facility] No Panel InformationOrdered By: Narinder Toussaint on 05-20-2022 Estimated GFR (CKD-EPI) 11.801 mL/Min [facility] Creatinine Clearance (Chem 11.02 [facility] Nucleated erythrocytes [Pres ence] in Blood by Automated countOrdered By: Jamal Schaefer on 05-20-2022 Nucleated RBC Auto Ql (Bld) 0.0 /100{WBC} 0-0.5 [facility] Phosphate [Mass/volume] in S steffanie or PlasmaOrdered By: Narinder Toussaint on 05-20-2022 Phosphate [Mass/Vol] 4.1 mg/dL 3.7-7.2 [facility] Platelet mean volume Auto (B ld) [Entitic vol]Ordered By: Jamal Schaefer on 05-20-2022 Platelet mean volume (Bld) [Entitic vol] 7.5 fL 6.3-10.7 [facility] Platelets Auto (Bld) [#/Vol] Ordered By: Jamla Schaefer on 05-20-2022 Platelets (Bld) [#/Vol] 241 10*3/uL 150-450 [facility] Potassium [Moles/volume] in Serum or PlasmaOrdered By: Narinder Toussaint on 05-20-2022 Potassium [Moles/Vol] 3.7 mmol/L 3.5-5.[address] [facility] RBC Auto (Bld) [#/Vol]Ordere d By: Jamal Schaefer on 05-20-2022 RBC (Bld) [#/Vol] 2.75 10*6/uL 3.60-5.00 [facility] Renal Function Panelon 05-20 Albumin [Mass/Vol] 3.2 g/dL Low 3.5-5.7 [facility] Comment on above: Performed By: #### R ENAL ####[facility] [id number] [place] [address] [facility] Anion gap [Moles/Vol] 13.6 mmol/L Normal 6.0-15.0 [facility] Comment on above: Performed By: #### R ENAL ####[facility] [address] [place] [address] [facility] Calcium [Mass/Vol] 9.4 mg/dL Normal 8.6-10.3 [facility] Comment on above: Performed By: #### R ENAL ####[facility] [address] [place] [address] [facility] Chloride [Moles/Vol] 97 mmol/L Low 98-107 [facility] Comment on above: Performed By: #### R ENAL ####[place] [address] [place] [id number] [facility] CO2 [Moles/Vol] 28.1 mmol/L Normal 21.0-31.0 [facility] Comment on above: Performed By: #### R ENAL ####[facility] [address] [place] [address] [facility] Creatinine [Mass/Vol] 3.81 mg/dL Significan t change up 0.60-1.20 [facility] Comment on above: Performed By: #### R ENAL ####[place] [address] [place] [id number] [facility] Creatinine Clr Calc Pharmacy 11.02 [facility] Comment on above: Result Comment: PERF ORMED BY:[place] [address] [place], [place] [phone] MEDICAL MAJOR LARSON M.D. Performed By: #### R ENAL ####[place] [address] [place] [address] [place] GFR/1.73 sq M.predicted MDRD (S/P/Bld) [Vol rate/Area] 11.801 mL/min/{1.73_m2} [facility] Comment on above: Performed By: #### R ENAL ####[facility] [id number] [place] [address] [facility] Glucose [Mass/Vol] 103 mg/dL High 70-100 [facility] Comment on above: Result Comment: Toutle Glucose Reference Range is dependent on time and content of last meal. Glucose of more than 200 mg/dL in a nonstressed, ambulatory subject supports the diagnosis of Diabetes Mellitus. ADA recommended reference range Performed By: #### R ENAL ####[facility] [id number] [place] [id number] [facility] Phosphate [Mass/Vol] 4.1 mg/dL Normal 3.7-7.2 [facility] Comment on above: Performed By: #### R ENAL ####[place] [id number] [facility] Potassium [Moles/Vol] 3.7 mmol/L Normal 3.5-5.[address] [facility] Comment on above: Performed By: #### R ENAL ####[place] [id number] [facility] Sodium [Moles/Vol] 135 mmol/L Low 136-145 [facility] Comment on above: Performed By: #### R ENAL ####[place] [id number] [facility] Urea nitrogen [Mass/Vol] 38 mg/dL High 7-25 [facility] Comment on above: Performed By: #### R ENAL ####[place] [id number] [facility] Serum or plasma anion gap de terminationOrdered By: Narinder Toussaint on 05-20-2022 Anion gap [Moles/Vol] 13.6 mmol/L 6.0-15.0 [facility] Sodium [Moles/volume] in Ser um or PlasmaOrdered By: Narinder Toussaint on 05-20-2022 Sodium [Moles/Vol] 135 mmol/L 136-145 [facility] Urea nitrogen [Mass/volume] in Serum or PlasmaOrdered By: Narinder Toussaint on 05-20-2022 Urea nitrogen [Mass/Vol] 38 mg/dL 7 [facility] WBC Auto (Bld) [#/Vol]Ordere d By: Jamal Schaefer on 05-20-2022 WBC (Bld) [#/Vol] 7.7 10*3/uL 3.8-11.6 [facility] Basic Metabolic Panelon Anion gap [Moles/Vol] 9.3 mmol/L Normal 6.0-15.[address] [facility] Comment on above: Performed By: #### C BC, BMP ####[facility] [place] [address] [place] Calcium [Mass/Vol] 9.2 mg/dL Normal 8.6-10.3 [facility] Comment on above: Performed By: #### C BC, BMP ####[place] [address] [place] [address] [place] Chloride [Moles/Vol] 95 mmol/L Low 98-107 [facility] Comment on above: Performed By: #### C BC, BMP ####[place] [address] [place] [address] [place] CO2 [Moles/Vol] 31.6 mmol/L High 21.0-31.0 [facility] Comment on above: Performed By: #### C BC, BMP ####[facility] [place] [address] [place] Creatinine [Mass/Vol] 2.90 mg/dL High 0.60-1.[address] [facility] Comment on above: Performed By: #### C BC, BMP ####[place] [address] [place] [address] [place] Creatinine Clr Calc Pharmacy 14.47 Normal [facility] Comment on above: Result Comment: PERF ORMED BY:[place] [address] [place], [place] [phone] MEDICAL DIRECTORRAMEZ LARSON M.D. Performed By: #### C BC, BMP ####[place] [place] [address] [place] GFR/1.73 sq M.predicted MDRD (S/P/Bld) [Vol rate/Area] 16.373 mL/min/{1.73_m2} Normal [facility] Comment on above: Performed By: #### C REBECCA, BMP ####[place] [address] [place] [id number] [facility] Glucose [Mass/Vol] 118 mg/dL High 70-100 [facility] Comment on above: Result Comment: [place] Glucose Reference Range is dependent on time and content of last meal. Glucose of more than 200 mg/dL in a nonstressed, ambulatory subject supports the diagnosis of Diabetes Mellitus. ADA recommended reference range Performed By: #### C REBECCA, BMP ####[place] [address] Potassium [Moles/Vol] 3.9 mmol/L Normal 3.5-5.[address] [facility] Comment on above: Performed By: #### C REBECCA, BMP ####[place] [id number] [facility] Sodium [Moles/Vol] 132 mmol/L Low 136-145 [facility] Comment on above: Performed By: #### C REBECCA, BMP ####[place] [id number] [facility] Urea nitrogen [Mass/Vol] 30 mg/dL High 7-25 [facility] Comment on above: Performed By: #### C REBECCA, BMP ####[place] [id number] [facility] Complete Blood Count Auto Di ffon 05-19-2022 Basophils (Bld) [#/Vol] 0.0 10*3/uL Normal 0.0-0.2 [facility] Comment on above: Result Comment: PERF ORMED BY:[address] [place], [place] [phone] MEDICAL DIRECTORRAMEZ LARSON M.D. Performed By: #### C REBECCA, BMP ####[place] [id number] [facility] Basophils/100 WBC (Bld) 0.7 % Normal . [facility] Comment on above: Performed By: #### C BC, BMP ####[address] Eosinophils (Bld) [#/Vol] 0.5 10*3/uL High 0.0-0.45 [facility] Comment on above: Performed By: #### C BC, BMP ####[address] Eosinophils/100 WBC (Bld) 7.4 % Normal . [facility] Comment on above: Performed By: #### C BC, BMP ####[address] Erythrocyte distribution width (RBC) [Ratio] 19.2 % High 11.9-15.3 [facility] Comment on above: Performed By: #### C BC, BMP ####[address] Hematocrit (Bld) [Volume fraction] 23.8 % Low 34.0-46.4 [facility] Comment on above: Performed By: #### C BC, BMP ####[address] Hemoglobin (Bld) [Mass/Vol] 7.7 g/dL Low 11.8-15.4 [facility] Comment on above: Performed By: #### C BC, BMP ####[address] Lymphocytes (Bld) [#/Vol] 1.1 10*3/uL Normal 1.00-4.8 [facility] Comment on above: Performed By: #### C BC, BMP ####[address] Lymphocytes/100 WBC (Bld) 16.8 % Normal . [facility] Comment on above: Performed By: #### C BC, BMP ####[address] MCH (RBC) [Entitic mass] 30.0 pg Normal 24.7-34.3 [facility] Comment on above: Performed By: #### C BC, BMP ####[place] [id number] [facility] MCV (RBC) [Entitic vol] 93.2 fL Normal 80-100 [facility] Comment on above: Performed By: #### C BC, BMP ####[place] [id number] [facility] Mean Corpuscular HGB Conc 32.2 g/dL Normal 32.0-35.0 [facility] Comment on above: Performed By: #### C BC, BMP ####[address] Monocytes (Bld) [#/Vol] 1.0 10*3/uL High 0.0-0.8 [facility] Comment on above: Performed By: #### C REBECCA, BMP ####[address] Monocytes/100 WBC (Bld) 15.4 % Normal . [facility] Comment on above: Performed By: #### C REBECCA, BMP ####[address] Neutrophils (Bld) [#/Vol] 3.9 10*3/uL Normal 1.8-7.7 [facility] Comment on above: Performed By: #### C BC, BMP ####[place] [id number] [facility] Neutrophils/100 WBC (Bld) 59.7 % Normal . [facility] Comment on above: Performed By: #### C BC, BMP ####[place] [id number] [facility] NRBC% 0.1 /100{WBC} Normal 0-0.5 [facility] Comment on above: Performed By: #### C BC, BMP ####[place] [id number] [facility] Platelet mean volume (Bld) [Entitic vol] 7.5 fL Normal 6.3-10.7 [facility] Comment on above: Performed By: #### C REBECCA, BMP ####[facility] [place] [address] [facility] Platelets (Bld) [#/Vol] 226 10*3/uL Normal 150-450 [facility] Comment on above: Performed By: #### C REBECCA, BMP ####[facility] [place] [address] [facility] RBC (Bld) [#/Vol] 2.55 10*6/uL Low 3.60-5.00 [facility] Comment on above: Performed By: #### C REBECCA, BMP ####[place] [address] [place] [address] [facility] WBC (Bld) [#/Vol] 6.6 10*3/uL Normal 3.8-11.6 [facility] Comment on above: Performed By: #### C REBECCA, BMP ####[address] [address] [facility] Glucose Poct Glucometerson 0 05-19-2022 Commemt1 Glu2: Cleaned Meter Normal [facility] Comment on above: Result Comment: PERF ORMED BY:[address] [place], [place] [phone] MEDICAL DIRECTORRAMEZ LARSON M.D. Performed By: #### G MARYLS ####Point of Care testing, Glucose [Mass/Vol] 127 mg/dL Normal [facility] Comment on above: Result Comment: [place] Glucose Reference Range is dependent on time and content of last meal. Glucose of more than 200 mg/dL in a nonstressed, ambulatory subject supports the diagnosis of Diabetes Mellitus. Performed By: #### G LULS ####Point of Care testing, Glucose [Mass/Vol] 126 mg/dL Normal [facility] Comment on above: Result Comment: [place] Glucose Reference Range is dependent on time and content of last meal. Glucose of more than 200 mg/dL in a nonstressed, ambulatory subject supports the diagnosis of Diabetes Mellitus.PERFORMED BY:[place] [address] [address] [place], [place] [phone] MEDICAL DIRECTORRAMEZ LAROSN M.D. Performed By: #### G LULS ####Point of Care testing, Glucose [Mass/Vol] 185 mg/dL Normal [facility] Comment on above: Result Comment: [place] om Glucose Reference Range is dependent on time and content of last meal. Glucose of more than 200 mg/dL in a nonstressed, ambulatory subject supports the diagnosis of Diabetes Mellitus.PERFORMED BY:[place] [address] [place], [place] [phone] MEDICAL DIRECTORRAMEZ LARSON M.D. Performed By: #### G LULS ####Point of Care testing, Commemt1 Glu2: Cleaned Meter Normal [facility] Comment on above: Result Comment: PERF ORMED BY:[address] [place], [place] [phone] MEDICAL MAJOR LARSON M.D. Performed By: #### G LULS ####Point of Care testing, Glucose [Mass/Vol] 128 mg/dL Normal [facility] Comment on above: Result Comment: [place] om Glucose Reference Range is dependent on time and content of last meal. Glucose of more than 200 mg/dL in a nonstressed, ambulatory subject supports the diagnosis of Diabetes Mellitus. Performed By: #### G LULS ####Point of Care testing, Troponin I High Sensitivityo n 05-19-2022 Troponin I High Sensitivity 47.8 pg/mL High 0.0-15.0 [facility] Comment on above: Result Comment: PERF ORMED BY:[place] [address] [address] [place], [place] [phone] MEDICAL DIRECTORRAMEZ LARSON M.D. Performed By: #### H S TROP ####[address] [address] [facility] Troponin I.cardiac [Mass/vol ume] in Serum or Plasma by Detection limit <= 0.01 ng/Ordered By: Jamal Schaefer on 05-19-2022 Troponin I.cardiac DL <= 0.01 ng/mL [Mass/Vol] 47.8 pg/mL 0.0-15.0 [facility] Basic Metabolic Panelon Anion gap [Moles/Vol] 12.1 mmol/L Normal 6.0-15.0 [facility] Comment on above: Performed By: #### B MP, CBC ####[place] [address] [place] [address] [facility] Calcium [Mass/Vol] 9.3 mg/dL Normal 8.6-10.3 [facility] Comment on above: Performed By: #### B MP, CBC ####[place] [address] [place] [address] [facility] Chloride [Moles/Vol] 94 mmol/L Low 98-107 [facility] Comment on above: Performed By: #### B MP, CBC ####[address] [address] [facility] CO2 [Moles/Vol] 30.7 mmol/L Normal 21.0-31.0 [facility] Comment on above: Performed By: #### B MP, CBC ####[address] [address] [facility] Creatinine [Mass/Vol] 3.33 mg/dL Significan t change up 0.60-1.20 [facility] Comment on above: Performed By: #### B MP, CBC ####[place] [address] [facility] Creatinine Clr Calc Pharmacy 12.61 Normal [facility] Comment on above: Result Comment: PERF ORMED BY:[address] [place], [place] [phone] MEDICAL DIRECTORRAMEZ LARSON M.D. Performed By: #### B MP, CBC ####[address] [address] [place] GFR/1.73 sq M.predicted MDRD (S/P/Bld) [Vol rate/Area] 13.870 mL/min/{1.73_m2} Normal [facility] Comment on above: Performed By: #### B MP, CBC ####[place] [address] [place] [address] [facility] Glucose [Mass/Vol] 156 mg/dL High 70-100 [facility] Comment on above: Result Comment: [place] Glucose Reference Range is dependent on time and content of last meal. Glucose of more than 200 mg/dL in a nonstressed, ambulatory subject supports the diagnosis of Diabetes Mellitus. ADA recommended reference range Performed By: #### B MP, CBC ####[place] [address] [place] [address] [facility] Potassium [Moles/Vol] 3.8 mmol/L Normal 3.5-5.[address] [facility] Comment on above: Performed By: #### B MP, CBC ####[address] [address] [facility] Sodium [Moles/Vol] 133 mmol/L Low 136-145 [facility] Comment on above: Performed By: #### B MP, CBC ####[place] [address] [place] [address] [facility] Urea nitrogen [Mass/Vol] 35 mg/dL High 7-25 [facility] Comment on above: Performed By: #### B MP, CBC ####[place] [address] [place] [address] [facility] Complete Blood Count Auto Di ffon 05-18-2022 Basophils (Bld) [#/Vol] 0.0 10*3/uL Normal 0.0-0.2 [facility] Comment on above: Result Comment: PERF ORMED BY:[address] [place], [place] [phone] MEDICAL DIRECTORRAMEZ LARSON M.D. Performed By: #### B MP, CBC ####[place] [address] [place] [address] [place] Basophils/100 WBC (Bld) 0.7 % Normal . [facility] Comment on above: Performed By: #### B MP, CBC ####[address] [address] [facility] Eosinophils (Bld) [#/Vol] 0.2 10*3/uL Normal 0.0-0.45 [facility] Comment on above: Performed By: #### B MP, CBC ####[address] [address] [facility] Eosinophils/100 WBC (Bld) 2.4 % Normal . [facility] Comment on above: Performed By: #### B MP, CBC ####[place] [address] [facility] Erythrocyte distribution width (RBC) [Ratio] 19.4 % High 11.9-15.3 [facility] Comment on above: Performed By: #### B MP, CBC ####[place] [address] [facility] Hematocrit (Bld) [Volume fraction] 28.8 % Low 34.0-46.4 [facility] Comment on above: Performed By: #### B MP, CBC ####[place] [address] [facility] Hemoglobin (Bld) [Mass/Vol] 9.2 g/dL Low 11.8-15.4 [facility] Comment on above: Performed By: #### B MP, CBC ####[place] [address] [facility] Lymphocytes (Bld) [#/Vol] 1.1 10*3/uL Normal 1.00-4.8 [facility] Comment on above: Performed By: #### B MP, CBC ####[place] [address] [facility] Lymphocytes/100 WBC (Bld) 18.3 % Normal . [facility] Comment on above: Performed By: #### B MP, CBC ####[place] [address] [facility] MCH (RBC) [Entitic mass] 29.6 pg Normal 24.7-34.3 [facility] Comment on above: Performed By: #### B MP, CBC ####[address] [address] [facility] MCV (RBC) [Entitic vol] 92.7 fL Normal 80-100 [facility] Comment on above: Performed By: #### B MP, CBC ####[address] [address] [facility] Mean Corpuscular HGB Conc 31.9 g/dL Low 32.0-35.0 [facility] Comment on above: Performed By: #### B MP, CBC ####[address] [address] [facility] Monocytes (Bld) [#/Vol] 1.1 10*3/uL High 0.0-0.8 [facility] Comment on above: Performed By: #### B MP, CBC ####[place] [address] [facility] Monocytes/100 WBC (Bld) 16.9 % Normal . [facility] Comment on above: Performed By: #### B MP, CBC ####[address] [address] [facility] Neutrophils (Bld) [#/Vol] 3.8 10*3/uL Normal 1.8-7.7 [facility] Comment on above: Performed By: #### B MP, CBC ####[address] [address] [facility] Neutrophils/100 WBC (Bld) 61.7 % Normal . [facility] Comment on above: Performed By: #### B MP, CBC ####[place] [address] [facility] NRBC% 0.0 /100{WBC} Normal 0-0.5 [facility] Comment on above: Performed By: #### B MP, CBC ####[place] [address] [facility] Platelet mean volume (Bld) [Entitic vol] 8.0 fL Normal 6.3-10.7 [facility] Comment on above: Performed By: #### B MP, CBC ####[facility] [address] [place] [address] [facility] Platelets (Bld) [#/Vol] 239 10*3/uL Normal 150-450 [facility] Comment on above: Performed By: #### B MP, CBC ####[facility] [id number] [place] [address] [facility] RBC (Bld) [#/Vol] 3.11 10*6/uL Low 3.60-5.00 [facility] Comment on above: Performed By: #### B MP, CBC ####[place] [address] [place] [address] [facility] WBC (Bld) [#/Vol] 6.2 10*3/uL Normal 3.8-11.6 [facility] Comment on above: Performed By: #### B MP, CBC ####[place] [id number] [facility] ECG 12 lead ECGon 05-18-2022 ECG 12 lead ECG Normal [facility] Glucose Poct Glucometerson 0 05-18-2022 Commemt1 Glu2: Cleaned Meter Normal [facility] Comment on above: Result Comment: PERF ORMED BY:[address] [place], [place] [phone] MEDICAL MAJOR LARSON M.D. Performed By: #### G LULS ####Point of Care testing, Glucose [Mass/Vol] 253 mg/dL Normal [facility] Comment on above: Result Comment: [place] Glucose Reference Range is dependent on time and content of last meal. Glucose of more than 200 mg/dL in a nonstressed, ambulatory subject supports the diagnosis of Diabetes Mellitus. Performed By: #### G LULS ####Point of Care testing, Glucose [Mass/Vol] 233 mg/dL Normal [facility] Comment on above: Result Comment: [place] Glucose Reference Range is dependent on time and content of last meal. Glucose of more than 200 mg/dL in a nonstressed, ambulatory subject supports the diagnosis of Diabetes Mellitus.PERFORMED BY:[address], [place] [phone] MEDICAL DIRECTORRAMEZ LARSON M.D. Performed By: #### G LULS ####Point of Care testing, Glucose [Mass/Vol] 129 mg/dL Normal [facility] Comment on above: Result Comment: [facility][note 3] Glucose Reference Range is dependent on time and content of last meal. Glucose of more than 200 mg/dL in a nonstressed, ambulatory subject supports the diagnosis of Diabetes Mellitus.PERFORMED BY:[address] [place], [place] [phone] MEDICAL DIRECTORRAMEZ LARSON M.D. Performed By: #### G LULS ####Point of Care testing, Glucose [Mass/Vol] 181 mg/dL Normal [facility] Comment on above: Result Comment: [facility][note 3] Glucose Reference Range is dependent on time and content of last meal. Glucose of more than 200 mg/dL in a nonstressed, ambulatory subject supports the diagnosis of Diabetes Mellitus.PERFORMED BY:[address] [place], [place] [phone] MEDICAL DIRECTORRAMEZ LARSON M.D. Performed By: #### G LULS ####Point of Care testing, Troponin I High Sensitivityo n 05-18-2022 Troponin I High Sensitivity 52.1 pg/mL Off scale high 0.0-15.0 [facility] Comment on above: Result Comment: Crit ical Result : Called to and read back by: HARRY MCNAIR at: 05/18/2022 17:47:53 by:[id number] BY:[place] [address] [address] [place], [place] [phone] MEDICAL MAJOR LARSON M.D. Performed By: #### H S TROP ####[address] green [place] [address] [facility] Activated partial thrombopla stin time (aPTT) in platelet poor plasma by coagulation aOrdered By: Horacio Moreno on 05-17-2022 aPTT Coag (PPP) [Time] 33.0 s 25.1-36.5 [facility] Alanine aminotransferase [En zymatic activity/volume] in Serum or PlasmaOrdered By: Horacio Moreno on 05-17-2022 ALT [Catalytic activity/Vol] 19 U/L 7-52 [facility] Alkaline phosphatase [Enzyma tic activity/volume] in Serum or PlasmaOrdered By: Horacio Moreno on 05-17-2022 ALP [Catalytic activity/Vol] 146 U/L 34-104 [facility] Aspartate aminotransferase [ Enzymatic activity/volume] in Serum or PlasmaOrdered By: Horacio Moreno on 05-17-2022 AST [Catalytic activity/Vol] 19 U/L 13-39 [facility] Bilirubin.total [Mass/volume ] in Serum or PlasmaOrdered By: Horacio Moreno on 05-17-2022 Bilirubin [Mass/Vol] 0.5 mg/dL 0.3-1.[address] [facility] [address] angio abdomen pelvison CT angio abdomen pelvis Normal [facility] Complete Blood Count Auto Di ffon 05-17-2022 Basophils (Bld) [#/Vol] 0.1 10*3/uL Normal 0.0-0.2 [facility] Comment on above: Result Comment: PERF ORMED BY:[address] [place], [place] [phone] MEDICAL DIRECTORRAMEZ LARSON M.D. Performed By: #### P TT, CMP, PT, CBC ####[facility] [address] [place] [id number] [facility] Basophils/100 WBC (Bld) 0.9 % Normal . [facility] Comment on above: Performed By: #### P TT, CMP, PT, CBC ####[facility] [address] [place] [address] [place] Eosinophils (Bld) [#/Vol] 0.2 10*3/uL Normal 0.0-0.45 [facility] Comment on above: Performed By: #### P TT, CMP, PT, CBC ####[facility] [place], [place] [address] [place] Eosinophils/100 WBC (Bld) 2.7 % Normal . [facility] Comment on above: Performed By: #### P TT, CMP, PT, CBC ####[address] Erythrocyte distribution width (RBC) [Ratio] 18.6 % High 11.9-15.3 [facility] Comment on above: Performed By: #### P TT, CMP, PT, CBC ####[address] Hematocrit (Bld) [Volume fraction] 36.5 % Normal 34.0-46.4 [facility] Comment on above: Performed By: #### P TT, CMP, PT, CBC ####[address] Hemoglobin (Bld) [Mass/Vol] 11.7 g/dL Low 11.8-15.4 [facility] Comment on above: Performed By: #### P TT, CMP, PT, CBC ####[address] Lymphocytes (Bld) [#/Vol] 0.9 10*3/uL Low 1.00-4.8 [facility] Comment on above: Performed By: #### P TT, CMP, PT, CBC ####[address] Lymphocytes/100 WBC (Bld) 11.9 % Normal . [facility] Comment on above: Performed By: #### P TT, CMP, PT, CBC ####[address] MCH (RBC) [Entitic mass] 29.8 pg Normal 24.7-34.3 [facility] Comment on above: Performed By: #### P TT, CMP, PT, CBC ####[address] MCV (RBC) [Entitic vol] 93.0 fL Normal 80-100 [facility] Comment on above: Performed By: #### P TT, CMP, PT, CBC ####[address] [address] [facility] Mean Corpuscular HGB Conc 32.1 g/dL Normal 32.0-35.0 [facility] Comment on above: Performed By: #### P TT, CMP, PT, CBC ####[address] [address] [facility] Monocytes (Bld) [#/Vol] 1.0 10*3/uL High 0.0-0.8 [facility] Comment on above: Performed By: #### P TT, CMP, PT, CBC ####[address] Monocytes/100 WBC (Bld) 21.10 % High 0.00-20.00 [facility] Comment on above: Result Comment: For adults in ED, MDW > 20.0 may be associated with a higher risk of sepsis during the first 12 hrs of hospital admission Performed By: #### P TT, CMP, PT, CBC ####[place] [address] [facility] Monocytes/100 WBC (Bld) 13.9 % Normal . [facility] Comment on above: Performed By: #### P TT, CMP, PT, CBC ####[place] [address] [facility] Neutrophils (Bld) [#/Vol] 5.2 10*3/uL Normal 1.8-7.7 [facility] Comment on above: Performed By: #### P TT, CMP, PT, CBC ####[place] [address] [facility] Neutrophils/100 WBC (Bld) 70.6 % Normal . [facility] Comment on above: Performed By: #### P TT, CMP, PT, CBC ####[place] [address] [facility] NRBC% 0.1 /100{WBC} Normal 0-0.5 [facility] Comment on above: Performed By: #### P TT, CMP, PT, CBC ####[place] [address] [facility] Platelet mean volume (Bld) [Entitic vol] 8.1 fL Normal 6.3-10.7 [facility] Comment on above: Performed By: #### P TT, CMP, PT, CBC ####[place] [address] [facility] Platelets (Bld) [#/Vol] 254 10*3/uL Normal 150-450 [facility] Comment on above: Performed By: #### P TT, CMP, PT, CBC ####[address] RBC (Bld) [#/Vol] 3.92 10*6/uL Normal 3.60-5.00 [facility] Comment on above: Performed By: #### P TT, CMP, PT, CBC ####[address] WBC (Bld) [#/Vol] 7.3 10*3/uL Normal 3.8-11.6 [facility] Comment on above: Performed By: #### P TT, CMP, PT, CBC ####[address] Comprehensive Metabolic Pane eliseo 05-17-2022 Albumin [Mass/Vol] 3.7 g/dL Normal 3.5-5.7 [facility] Comment on above: Performed By: #### P TT, CMP, PT, CBC ####[address] Albumin/Globulin [Mass ratio] 1.1 {ratio} Normal [facility] Comment on above: Performed By: #### P TT, CMP, PT, CBC ####[address] ALP [Catalytic activity/Vol] 146 U/L High 34-104 [facility] Comment on above: Performed By: #### P TT, CMP, PT, CBC ####[place] [id number] [facility] ALT [Catalytic activity/Vol] 19 U/L Normal 7-52 [facility] Comment on above: Performed By: #### P TT, CMP, PT, CBC ####[address] [address] [facility] Anion gap [Moles/Vol] 12.7 mmol/L Normal 6.0-15.0 [facility] Comment on above: Performed By: #### P TT, CMP, PT, CBC ####[address] [address] [address] [facility] AST [Catalytic activity/Vol] 19 U/L Normal 13-39 [facility] Comment on above: Performed By: #### P TT, CMP, PT, CBC ####[address] [address] [facility] Bilirubin [Mass/Vol] 0.5 mg/dL Normal 0.3-1.0 [facility] Comment on above: Performed By: #### P TT, CMP, PT, CBC ####[address] [address] [facility] Calcium [Mass/Vol] 9.6 mg/dL Normal 8.6-10.3 [facility] Comment on above: Performed By: #### P TT, CMP, PT, CBC ####[address] [address] [facility] Chloride [Moles/Vol] 92 mmol/L Low 98-107 [facility] Comment on above: Performed By: #### P TT, CMP, PT, CBC ####[address] [address] [facility] CO2 [Moles/Vol] 30.6 mmol/L Normal 21.0-31.0 [facility] Comment on above: Performed By: #### P TT, CMP, PT, CBC ####[address] [address] [facility] Creatinine [Mass/Vol] 2.33 mg/dL High 0.60-1.[address] [facility] Comment on above: Performed By: #### P TT, CMP, PT, CBC ####[address] [address] [facility] Creatinine Clr Calc Pharmacy 18.01 [facility] Comment on above: Result Comment: PERF ORMED BY:[address] [place], [place] [phone] MEDICAL MAJOR LARSON M.D. Performed By: #### P TT, CMP, PT, CBC ####[place] [id number] [facility] GFR/1.73 sq M.predicted MDRD (S/P/Bld) [Vol rate/Area] 21.291 mL/min/{1.73_m2} [facility] Comment on above: Performed By: #### P TT, CMP, PT, CBC ####[place] [id number] [facility] Globulin (S) [Mass/Vol] 3.3 g/dL [facility] Comment on above: Performed By: #### P TT, CMP, PT, CBC ####[place] [id number] [facility] Glucose [Mass/Vol] 236 mg/dL High 70-100 [facility] Comment on above: Result Comment: [place] Glucose Reference Range is dependent on time and content of last meal. Glucose of more than 200 mg/dL in a nonstressed, ambulatory subject supports the diagnosis of Diabetes Mellitus. ADA recommended reference range Performed By: #### P TT, CMP, PT, CBC ####[place] [id number] [facility] Potassium [Moles/Vol] 3.3 mmol/L Low 3.5-5.[address] [facility] Comment on above: Performed By: #### P TT, CMP, PT, CBC ####[place] [id number] [facility] Protein [Mass/Vol] 7.0 g/dL Normal 6.4-8.9 [facility] Comment on above: Performed By: #### P TT, CMP, PT, CBC ####[facility] [id number] [place] [address] [facility] Sodium [Moles/Vol] 132 mmol/L Low 136-145 [facility] Comment on above: Performed By: #### P TT, CMP, PT, CBC ####[facility] [id number] [place] [address] [facility] Urea nitrogen [Mass/Vol] 23 mg/dL Normal 7-25 [facility] Comment on above: Performed By: #### P TT, CMP, PT, CBC ####[facility] [id number] [place] [address] [facility] Globulin Calc (S) [Mass/Vol] Ordered By: Horacio Moreno on 05-17-2022 Globulin (S) [Mass/Vol] 3.3 g/dL [facility] Glucose Poct Glucometerson 0 05-17-2022 Commemt1 Glu2: Cleaned Meter Normal [facility] Comment on above: Result Comment: PERF ORMED BY:[facility] [place], [place] [phone] MEDICAL DIRECTORRAMEZ LARSON M.D. Performed By: #### G LUANNITA ####Point of Care testing, Glucose [Mass/Vol] 148 mg/dL Normal [facility] Comment on above: Result Comment: [facility][note 3] Glucose Reference Range is dependent on time and content of last meal. Glucose of more than 200 mg/dL in a nonstressed, ambulatory subject supports the diagnosis of Diabetes Mellitus. Performed By: #### G LULS ####Point of Care testing, Laboratory - CoagulationOrde red By: Horacio Moreno on 05-17-2022 PT Coag (PPP) [Time] 13.3 s 9.0-12.9 [facility] LeukoReduced RBCon LeukoReduced RBC NOT AVAILABLE Normal [facility] Monocyte distribution width [Entitic volume] in Blood by AutomatedOrdered By: Horacio Moreno on 05-17-2022 Monocyte distribution width Auto (Bld) [Entitic vol] 21.10 % 0.00-20.00 [facility] Comment on above: For adults in ED, MD W > 20.0 may be associated with a higher risk of sepsis during the first 12 hrs of hospital admission No Panel InformationOrdered By: Horacio Moreno on 05-17-2022 Stool Occult Blood (TRINITY) [facility] Partial Thromboplastin Timeo n 05-17-2022 aPTT Coag (Bld) [Time] 33.0 s Normal 25.1-36.5 [facility] Comment on above: Result Comment: PERF ORMED BY:[facility] [place], [place] [phone] MEDICAL DIRECTORRAMEZ LARSON M.D. Performed By: #### P TT, CMP, PT, CBC ####[facility] [place] [address] [facility] Platelet poor plasma interna tional normalized ratio (INR) by coagulation assay (relatOrdered By: Horacio Moreno on 05-17-2022 INR Coag (PPP) [Relative time] 1.2 {INR} [facility] Comment on above: INR Therapeutic Rang e [...] on 05-17-2022 Protein [Mass/Vol] 7.0 g/dL 6.4-8.9 [facility] Prothrombin Time INRon 05-17 INR Coag (PPP) [Relative time] 1.2 {INR} Normal [facility] Comment on above: Result Comment: INR Therapeutic [...] 3 - 4.5 Performed By: #### P TT, CMP, PT, CBC ####[facility] [id number] [place] [address] [facility] PT Coag (PPP) [Time] 13.3 s High 9.0-12.9 [facility] Comment on above: Performed By: #### P TT, CMP, PT, CBC ####[facility] [place] [id number] [facility] Serum or plasma albumin/glob ulin mass ratioOrdered By: Horacio Moreno on 05-17-2022 Albumin/Globulin [Mass ratio] 1.1 {ratio} [facility] Stool Occult Bl. Scr. (Guaia c)on 05-17-2022 Stool Occult Bl. Scr. (Guaiac) [facility] Comment on above: Performed By: #### O BS-GUAIAC ####[place] [address] [place] [address] [facility] Type and Screenon 05-17-2022 ABO and Rh group Nom (Bld) Blood group O Rh(D) positive [facility] Comment on above: Order Comment: Trans fuse now? Y Number of units to transfuse now? 1 Result Comment: PERF ORMED BY:[address] [place], [place] [phone] MEDICAL DIRECTORRAMEZ LARSON M.D. US AV Fistulaon 04-18-2022 US AV Fistula Normal [facility] CT CHEST WO CONon 04-04-2022 CT CHEST WO CON Normal [facility] Creatinine and Glomerular fi ltration rate.predicted panel (S/P/Bld)Ordered By: Narinder Toussaint on 02-27-2022 Creatinine [Mass/Vol] 3.67 mg/dL 0.44-1.[address] [facility] Comment on above: Delta: 3.13 on 02/26-436 Erythrocyte distribution wid th Auto (RBC) [Ratio]Ordered By: Narinder Toussaint on 02-27-2022 Erythrocyte distribution width (RBC) [Ratio] 15.2 % 11.9-15.3 [facility] Estimated glomerular filtrat ion rate (GFR) non- AmericanOrdered By: Narinder Toussaint on 02-27-2022 GFR/1.73 sq M.predicted among non-blacks MDRD (S/P/Bld) [Vol rate/Area] 12 mL/Min [facility] Glucose Glucometer (BldC) [M ass/Vol]Ordered By: Simone Godoy on 02-27-2022 Glucose [Mass/Vol] 115 mg/dL [facility] Comment on above: Random Glucose Refer ence Range is dependent on time and content of last meal. Glucose of more than 200 mg/dL in a nonstressed, ambulatory subject supports the diagnosis of Diabetes Mellitus. Hematocrit Auto (Bld) [Volum e fraction]Ordered By: Narinder Toussaint on 02-27-2022 Hematocrit (Bld) [Volume fraction] 21.7 % 34.0-46.4 [facility] Hemoglobin [Mass/volume] in BloodOrdered By: Narinder Toussaint on 02-27-2022 Hemoglobin (Bld) [Mass/Vol] 6.9 g/dL 11.8-15.4 [facility] Leukocytes [#/volume] correc tr for nucleated erythrocytes in Blood by Automated counOrdered By: Narinder Toussaint on 02-27-2022 WBC corrected for nucl RBC Auto (Bld) [#/Vol] 4.6 10*3/uL 3.8-11.6 [facility] MCH Auto (RBC) [Entitic mass ]Ordered By: Narinder Toussaint on 02-27-2022 MCH (RBC) [Entitic mass] 29.6 pg 24.7-34.3 [facility] MCHC Auto (RBC) [Mass/Vol]Or dered By: Narinder Toussaint on 02-27-2022 MCHC (RBC) [Mass/Vol] 31.8 g/dL 32.0-35.[address] [facility] MCV Auto (RBC) [Entitic vol] Ordered By: Narinder Toussaint on 02-27-2022 MCV (RBC) [Entitic vol] 93.0 fL 80-100 [facility] No Panel InformationOrdered By: Simone Godoy on 02-27-2022 Bedside Glucose Comment Glu2: cleaned meter [facility] No Panel InformationOrdered By: Narinder Toussaint on 02-27-2022 Estimated GFR () 15 mL/Min [facility] Comment on above: GFR estimated refere nce range: According to KDOQI guidelines, <60 ml/min/1.73m2 is sufficient to diagnose a patient with chronic kidney disease. Pharmacy Creatinine Clearance (Chem 13.28 [facility] Platelet mean volume Auto (B ld) [Entitic vol]Ordered By: Narinder Toussaint on 02-27-2022 Platelet mean volume (Bld) [Entitic vol] 8.5 fL 6.3-10.7 [facility] Platelets Auto (Bld) [#/Vol] Ordered By: Narinder Toussaint on 02-27-2022 Platelets (Bld) [#/Vol] 165 10*3/uL 150-450 [facility] RBC Auto (Bld) [#/Vol]Ordere d By: Narinder Toussaint on 02-27-2022 RBC (Bld) [#/Vol] 2.34 10*6/uL 3.60-5.00 [facility] Serum or plasma anion gap de terminationOrdered By: Narinder Toussaint on 02-27-2022 Anion gap [Moles/Vol] 14.4 mmol/L 6.0-15.0 [facility] Serum or plasma calcium eugenie urement (mass/volume)Ordered By: Narinder Toussaint on 02-27-2022 Calcium [Mass/Vol] 8.6 mg/dL 8.2-10.2 [facility] Serum or plasma chloride marciano surement (moles/volume)Ordered By: Narinder Toussaint on 02-27-2022 Chloride [Moles/Vol] 91 mmol/L 95-114 [facility] Serum or plasma glucose eugenie urement (mass/volume)Ordered By: Narinder Toussaint on 02-27-2022 Glucose [Mass/Vol] 169 mg/dL 70-100 [facility] Comment on above: ADA recommended refe rence rangeRandom Glucose Reference Range is dependent on time and content of last meal. Glucose of more than 200 mg/dL in a nonstressed, ambulatory subject supports the diagnosis of Diabetes Mellitus. Serum or plasma potassium me asurement (moles/volume)Ordered By: Narinder Toussaint on 02-27-2022 Potassium [Moles/Vol] 3.8 mmol/L 3.5-5.[address] [facility] Serum or plasma sodium measu rement (moles/volume)Ordered By: Narinder Toussaint on 02-27-2022 Sodium [Moles/Vol] 129 mmol/L 136-146 [facility] Serum or plasma total carbon dioxide measurement (moles/volume)Ordered By: Narinder Toussaint on 02-27-2022 CO2 [Moles/Vol] 27.4 mmol/L 22.0-30.0 [facility] Serum or plasma urea nitroge n measurement (mass/volume)Ordered By: Narinder Toussaint 02-27-2022 Urea nitrogen [Mass/Vol] 51 mg/dL 9-23 [facility] CT biopsyOrdered By: Narinder nance on 02-24-2022 Transferrin [Mass/Vol] 129 mg/dL 180-380 [facility] Ferritin [Mass/volume] in Se rum or PlasmaOrdered By: Narinder Toussaint on 02-24-2022 Ferritin [Mass/Vol] 1276.1 ng/mL 11-306.[address] [facility] Folate [Mass/volume] in Seru m or PlasmaOrdered By: Narinder Toussaint on 02-24-2022 Folate [Mass/Vol] ng/mL >5.9 [facility] Comment on above: Folate reference ran ge: >5.9 ng/mlThe WHO technical consultation on folate and vitamin [id number] has determined that folate concentrations lessthan 4 ng/ml are considered deficient. Hepatitis B virus surface Ag [Presence] in Serum or Plasma by ImmunoassayOrdered By: Narinder Toussaint on 02-24-2022 HBV surface Ag IA Ql Negative Negative [facility] Iron [Mass/volume] in Serum or PlasmaOrdered By: Narinder Toussaint 02-24-2022 Iron [Mass/Vol] 32 ug/dL 40-150 [facility] Iron binding capacity [Mass/ volume] in Serum or PlasmaOrdered By: Narinder Toussaint 02-24-2022 Iron binding capacity [Mass/Vol] 181 ug/dL 255-450 [facility] Iron saturation [Mass Fracti on] in Serum or PlasmaOrdered By: Narinder Toussaint on 02-24-2022 Iron saturation [Mass fraction] 17.7 % 20-50 [facility] Laboratory - Chemistry and C hemistry - challengeOrdered By: Narinder Toussaint on 02-24-2022 Cobalamin (Vitamin B12) [Mass/Vol] 607 pg/mL 180-914 [facility] No Panel InformationOrdered By: Narinder Toussaint on 02-24-2022 Hepatitis A IgM Antibody Negative Negative [facility] Hepatitis B Core IgM Antibody Negative Negative [facility] Hepatitis C Interpretation See comment . [facility] Comment on above: NegativeNot infected with HCV, unless recent infection issuspected or other evidence exists to indicate HCVinfection.Performed at: [employer] [address] [id number] Director: Tyler Sprague PhD, Phone: [phone] Phosphate [Mass/volume] in S steffanie or PlasmaOrdered By: Narinder Toussaint on 02-24-2022 Phosphate [Mass/Vol] 5.8 mg/dL 2.5-4.6 [facility] Serum or plasma hepatitis C virus antibody signal/cutoff ratio by immunoassay (relatiOrdered By: Narinder Toussaint on 02-24-2022 HCV Ab Signal/Cutoff IA [Rel units/Vol] <0.1 s/co ratio 0.0-0.9 [facility] Basophils Auto (Bld) [#/Vol] Ordered By: Malika Arreaga on 02-23-2022 Basophils (Bld) [#/Vol] 0.0 10*3/uL 0.0-0.2 [facility] Basophils/100 WBC Auto (Bld) Ordered By: Malika Arreaga on 02-23-2022 Basophils/100 WBC (Bld) 0.7 % . [facility] Eosinophils Auto (Bld) [#/Vo l]Ordered By: Malika Arreaga on 02-23-2022 Eosinophils (Bld) [#/Vol] 0.2 10*3/uL 0.0-0.45 [facility] Eosinophils/100 WBC Auto (Bl d)Ordered By: Malika Arreaga on 02-23-2022 Eosinophils/100 WBC (Bld) 4.1 % . [facility] Glucose mean value [Mass/vol ume] in Blood Estimated from glycated hemoglobinOrdered By: Malika Arreaga on 02-23-2022 Average glucose Estimated from glycated hemoglobin (Bld) [Mass/Vol] 148 mg/dL [facility] Hemoglobin A1c percentageOrd ered By: Malika Arreaga on 02-23-2022 HbA1c (Bld) [Mass fraction] 6.8 % 4.3-5.6 [facility] Comment on above: Increased risk for d iabetes: 5.7 - 6.4diabetes: >6.4glycemic control for adults with diabetes: <7.0 Lymphocytes Auto (Bld) [#/Vo l]Ordered By: Malika Arreaga on 02-23-2022 Lymphocytes (Bld) [#/Vol] 0.8 10*3/uL 1.00-4.8 [facility] Lymphocytes/100 WBC Auto (Bl d)Ordered By: Malika Arreaga on 02-23-2022 Lymphocytes/100 WBC (Bld) 15.9 % . [facility] Monocytes Auto (Bld) [#/Vol] Ordered By: Malika Arreaga on 02-23-2022 Monocytes (Bld) [#/Vol] 0.6 10*3/uL 0.0-0.8 [facility] Monocytes/100 WBC Auto (Bld) Ordered By: Malika Arreaga on 02-23-2022 Monocytes/100 WBC (Bld) 13.0 % . [facility] Neutrophils Auto (Bld) [#/Vo l]Ordered By: Malika Arreaga on 02-23-2022 Neutrophils (Bld) [#/Vol] 3.3 10*3/uL 1.8-7.7 [facility] Neutrophils/100 WBC Auto (Bl d)Ordered By: Malika Arreaga on 02-23-2022 Neutrophils/100 WBC (Bld) 66.3 % . [facility] Nucleated erythrocytes [Pres ence] in Blood by Automated countOrdered By: Malika Arreaga on 02-23-2022 Nucleated RBC Auto Ql (Bld) 0.0 /100{WBC} 0-0.5 [facility] WBC Auto (Bld) [#/Vol]Ordere d By: Malika Arreaga on 02-23-2022 WBC (Bld) [#/Vol] 4.9 10*3/uL 3.8-11.6 [facility] Activated partial thrombopla stin time (aPTT) in platelet poor plasma by coagulation aOrdered By: Yusra Santoyo on 02-22-2022 aPTT Coag (PPP) [Time] 36.0 s 25.1-36.5 [facility] Automated erythrocytes count in urine sediment (number/area)Ordered By: Yusra Santoyo on 02-22-2022 RBC Auto (Urine sed) [#/Area] 0-1 [HPF] 0-4 [facility] Automated leukocytes count i n urine sediment (number/area)Ordered By: Yusra Santoyo on 02-22-2022 WBC Auto (Urine sed) [#/Area] 10-19 [HPF] 0-4 [facility] Bacterial blood cultureOrder ed By: Yusra Santoyo on 02-22-2022 Bacteria identified Cx Nom (Bld) NO GROWTH 5 DAYS [facility] Bacteria identified Cx Nom (Bld) NO GROWTH 5 DAYS [facility] Basophils Auto (Bld) [#/Vol] Ordered By: Yusra Santoyo on 02-22-2022 Basophils (Bld) [#/Vol] 0.0 10*3/uL 0.0-0.2 [facility] Basophils/100 WBC Auto (Bld) Ordered By: Yusra Santoyo on 02-22-2022 Basophils/100 WBC (Bld) 0.7 % . [facility] Bilirubin Test strip Ql (U)O rdered By: Yusra Santoyo on 02-22-2022 Bilirubin Ql (U) Negative Negative [facility] COVID CepheidOrdered By: Adan Santoyo on 02-22-2022 SARS-CoV-2 (COVID-19) Ab IA Ql Negative Negative [facility] Comment on above: This is a duplicate avox Xpert Xpress CoV-2/Flu/RSV Plus RNA by RT-PCR result to be used for statistical tracking purpose only. SARS-CoV-2 (COVID-19) RNA [place]+probe Ql (Unsp spec) [facility] SARS-CoV-2 (COVID-19) RNA [place]+probe Ql (Unsp spec) [facility] Color Auto (U)Ordered By: Joel Santoyo on 02-22-2022 Color (U) Yellow Yellow [facility] Creatine kinase [Enzymatic a ctivity/volume] in Serum or PlasmaOrdered By: Yusra Santoyo on 02-22-2022 CK [Catalytic activity/Vol] 54 U/L 22-269 [facility] Creatinine and Glomerular fi ltration rate.predicted panel (S/P/Bld)Ordered By: Yusra Santoyo on 02-22-2022 Creatinine [Mass/Vol] 5.19 mg/dL 0.44-1.[address] [facility] Eosinophils Auto (Bld) [#/Vo l]Ordered By: Yusra Santoyo on 02-22-2022 Eosinophils (Bld) [#/Vol] 0.2 10*3/uL 0.0-0.45 [facility] Eosinophils/100 WBC Auto (Bl d)Ordered By: Yusra Santoyo on 02-22-2022 Eosinophils/100 WBC (Bld) 3.7 % . [facility] Erythrocyte distribution wid th Auto (RBC) [Ratio]Ordered By: Yusra Santoyo on 02-22-2022 Erythrocyte distribution width (RBC) [Ratio] 16.2 % 11.9-15.3 [facility] Estimated glomerular filtrat ion rate (GFR) non- AmericanOrdered By: Yusra Santoyo on 02-22-2022 GFR/1.73 sq M.predicted among non-blacks MDRD (S/P/Bld) [Vol rate/Area] 8 mL/Min [facility] Hematocrit Auto (Bld) [Volum e fraction]Ordered By: Yusra Santoyo on 02-22-2022 Hematocrit (Bld) [Volume fraction] 26.0 % 34.0-46.4 [facility] Hemoglobin [Mass/volume] in BloodOrdered By: Yusra Santoyo on 02-22-2022 Hemoglobin (Bld) [Mass/Vol] 8.2 g/dL 11.8-15.4 [facility] Ketones Auto test strip (U) [Mass/Vol]Ordered By: Yusra Santoyo on 02-22-2022 Ketones (U) [Mass/Vol] Negative Negative [facility] Laboratory - Chemistry and C hemistry - challengeOrdered By: Yusra Santoyo on 02-22-2022 Natriuretic peptide B (Bld) [Mass/Vol] 3549.0 pg/mL 5-100 [facility] Laboratory - CoagulationOrde red By: Yusra Santoyo on 02-22-2022 PT Coag (PPP) [Time] 15.6 s 9.0-12.9 [facility] Laboratory - UrinalysisOrder ed By: Yusra Santoyo on 02-22-2022 Hyaline casts LM Ql (Urine sed) 0-8 [LPF] 0-8 [facility] Leukocytes [#/volume] correc tr for nucleated erythrocytes in Blood by Automated counOrdered By: Yusra Santoyo on 02-22-2022 WBC corrected for nucl RBC Auto (Bld) [#/Vol] 6.8 10*3/uL 3.8-11.6 [facility] Lymphocytes Auto (Bld) [#/Vo l]Ordered By: Yusra Santoyo on 02-22-2022 Lymphocytes (Bld) [#/Vol] 0.8 10*3/uL 1.00-4.8 [facility] Lymphocytes/100 WBC Auto (Bl d)Ordered By: Yusra Santoyo on 02-22-2022 Lymphocytes/100 WBC (Bld) 12.3 % . [facility] MCH Auto (RBC) [Entitic mass ]Ordered By: Yusra Santoyo on 02-22-2022 MCH (RBC) [Entitic mass] 29.6 pg 24.7-34.3 [facility] MCHC Auto (RBC) [Mass/Vol]Or dered By: Yusra Santoyo on 02-22-2022 MCHC (RBC) [Mass/Vol] 31.5 g/dL 32.0-35.[address] [facility] MCV Auto (RBC) [Entitic vol] Ordered By: Yusra Santoyo on 02-22-2022 MCV (RBC) [Entitic vol] 94.0 fL 80-100 [facility] Monocyte distribution width [Entitic volume] in Blood by AutomatedOrdered By: Yusra Santoyo on 02-22-2022 Monocyte distribution width Auto (Bld) [Entitic vol] 18.44 % 0.00-20.00 [facility] Monocytes Auto (Bld) [#/Vol] Ordered By: Yusra Santoyo on 02-22-2022 Monocytes (Bld) [#/Vol] 0.8 10*3/uL 0.0-0.8 [facility] Monocytes/100 WBC Auto (Bld) Ordered By: Yusra Santoyo on 02-22-2022 Monocytes/100 WBC (Bld) 11.5 % . [facility] Neutrophils Auto (Bld) [#/Vo l]Ordered By: Yusra Santoyo on 02-22-2022 Neutrophils (Bld) [#/Vol] 4.9 10*3/uL 1.8-7.7 [facility] Neutrophils/100 WBC Auto (Bl d)Ordered By: Yusra Santoyo on 02-22-2022 Neutrophils/100 WBC (Bld) 71.8 % . [facility] Nitrite Test strip Ql (U)Ord ered By: Yusra Santoyo on 02-22-2022 Nitrite Ql (U) Negative Negative [facility] No Panel InformationOrdered By: Yusra Santoyo on 02-22-2022 Estimated GFR () 10 mL/Min [facility] Comment on above: GFR estimated refere nce range: According to KDOQI guidelines, <60 ml/min/1.73m2 is sufficient to diagnose a patient with chronic kidney disease. Pharmacy Creatinine Clearance (Chem 9.34 [facility] Nucleated erythrocytes [Pres ence] in Blood by Automated countOrdered By: Yusra Santoyo on 02-22-2022 Nucleated RBC Auto Ql (Bld) 0.1 /100{WBC} 0-0.5 [facility] Platelet mean volume Auto (B ld) [Entitic vol]Ordered By: Yusra Santoyo on 02-22-2022 Platelet mean volume (Bld) [Entitic vol] 7.6 fL 6.3-10.7 [facility] Platelet poor plasma interna tional normalized ratio (INR) by coagulation assay (relatOrdered By: Yusra Santoyo on 02-22-2022 INR Coag (PPP) [Relative time] 1.4 {INR} [facility] Comment on above: INR Therapeutic Rang e [...] 02-22-2022 Platelets (Bld) [#/Vol] 240 10*3/uL 150-450 [facility] Protein Auto test strip (U) [Mass/Vol]Ordered By: Yusra Santoyo on 02-22-2022 Protein (U) [Mass/Vol] 100 mg/dL Negative [facility] RBC Auto (Bld) [#/Vol]Ordere d By: Yusra Santoyo on 02-22-2022 RBC (Bld) [#/Vol] 2.77 10*6/uL 3.60-5.00 [facility] Serum or plasma anion gap de terminationOrdered By: Yusra Santoyo on 02-22-2022 Anion gap [Moles/Vol] 18.6 mmol/L 6.0-15.0 [facility] Serum or plasma calcium eugenie urement (mass/volume)Ordered By: Yusra Santoyo on 02-22-2022 Calcium [Mass/Vol] 9.4 mg/dL 8.2-10.2 [facility] Serum or plasma chloride marciano surement (moles/volume)Ordered By: Yusra Santoyo on 02-22-2022 Chloride [Moles/Vol] 100 mmol/L 95-114 [facility] Serum or plasma creatine kin ase MB (CKMB)/total creatine kinase (CK) ratio by calculaOrdered By: Yusra Santoyo on 02-22-2022 CK.MB Calc [Catalytic fraction] 8.3 % 0.00-2.50 [facility] Serum or plasma creatine kin ase MB measurement (mass/volume)Ordered By: Yusra Santoyo on 02-22-2022 CK.MB [Mass/Vol] 4.5 ng/mL 0.6-6.3 [facility] Serum or plasma glucose eugenie urement (mass/volume)Ordered By: Yusra Santoyo on 02-22-2022 Glucose [Mass/Vol] 142 mg/dL 70-100 [facility] Comment on above: ADA recommended refe rence rangeRandom Glucose Reference Range is dependent on time and content of last meal. Glucose of more than 200 mg/dL in a nonstressed, ambulatory subject supports the diagnosis of Diabetes Mellitus. Serum or plasma potassium me asurement (moles/volume)Ordered By: Yusra Santoyo on 02-22-2022 Potassium [Moles/Vol] 5.0 mmol/L 3.5-5.[address] [facility] Serum or plasma sodium measu rement (moles/volume)Ordered By: Yusra Santoyo on 02-22-2022 Sodium [Moles/Vol] 132 mmol/L 136-146 [facility] Serum or plasma total carbon dioxide measurement (moles/volume)Ordered By: Yusra Santoyo on 02-22-2022 CO2 [Moles/Vol] 18.4 mmol/L 22.0-30.0 [facility] Serum or plasma urea nitroge n measurement (mass/volume)Ordered By: Yusra Santoyo on 02-22-2022 Urea nitrogen [Mass/Vol] 126 mg/dL 9-23 [facility] Specific gravity Auto test s trip (U) [Rel density]Ordered By: Yusar Santoyo on 02-22-2022 Specific gravity (U) [Rel density] 1.015 1.001-1.030 [facility] Squamous epithelial cells de tection in urine sediment by light microscopyOrdered By: Yusra Santoyo on 02-22-2022 Epithelial cells.squamous LM Ql (Urine sed) 3-4 [HPF] 0-2 [facility] Troponin I.cardiac [Mass/vol ume] in Serum or Plasma by High sensitivity methodOrdered By: Malika Arreaga on 02-22-2022 Troponin I.cardiac High sensitivity method [Mass/Vol] 85 pg/mL 0-15 [facility] Comment on above: Results calledat 231 4 on 02/22/22 Troponin I.cardiac [Mass/vol ume] in Serum or Plasma by High sensitivity methodOrdered By: Yusra Santoyo on 02-22-2022 Troponin I.cardiac High sensitivity method [Mass/Vol] 82 pg/mL 0-15 [facility] Comment on above: Results calledat 203 2 on 02/22/22 Urine bacteria detection by automated methodOrdered By: Yusra Santoyo on 02-22-2022 Bacteria Auto Ql (U) None seen None Seen [facility] Urine clarity by refractomet ry automatedOrdered By: Yusra Santoyo on 02-22-2022 Clarity Refractometry automated (U) Clear Clear [facility] Urine culture routineOrdered By: Yusra Santoyo on 02-22-2022 Bacteria identified Cx Nom (U) 2 Days [facility] Bacteria identified Cx Nom (U) 2 Days [facility] Urine glucose measurement by automated test strip (mass/volume)Ordered By: Yusra Santoyo on 02-22-2022 Glucose Auto test strip (U) [Mass/Vol] Normal mg/dL Normal [facility] Urine hemoglobin detection b y automated test stripOrdered By: Yusra Santoyo on 02-22-2022 Hemoglobin Auto test strip Ql (U) Negative Negative [facility] Urine leukocyte esterase det ection by automated test stripOrdered By: Yusra Santoyo on 02-22-2022 Leukocyte esterase Auto test strip Ql (U) 2+ Negative [facility] Urobilinogen Auto test strip (U) [Mass/Vol]Ordered By: Yusra Santoyo on 02-22-2022 Urobilinogen (U) [Mass/Vol] Normal mg/dL Normal [facility] WBC Auto (Bld) [#/Vol]Ordere d By: Yusra Santoyo on 02-22-2022 WBC (Bld) [#/Vol] 6.8 10*3/uL 3.8-11.6 [facility] Yeast detection in urine sed iment by light microscopyOrdered By: Yusra Santoyo on 02-22-2022 Yeast LM Ql (Urine sed) None seen [HPF] None Se en [facility] pH Auto test strip (U)Ordere d By: Yusra Santoyo on 02-22-2022 pH (U) 5.0 [pH] 5.0-9.0 [facility] PHOSPHOLIPIDSon 02-14-2022 Phospholipids, Serum 159 mg/dL Normal 151-288 [facility] Comment on above: Performed By: #### P HOSLIP ####[facility] [address] [place], [place] [address]Bo. Marlin Gonzalez XR CHEST COMP MIN 4Von 02-14 XR CHEST COMP MIN 4V Normal [facility] CT biopsyOrdered By: Geronimo shoemaker on 01-30-2022 Transferrin [Mass/Vol] 158 mg/dL 180-380 [facility] Ferritin [Mass/volume] in Se rum or PlasmaOrdered By: Geronimo Fofana on 01-30-2022 Ferritin [Mass/Vol] 1272.3 ng/mL 11-306.[address] [facility] Folate [Mass/volume] in Seru m or PlasmaOrdered By: Geronimo Fofana on 01-30-2022 Folate [Mass/Vol] ng/mL >5.9 [facility] Comment on above: Folate reference ran ge: >5.9 ng/mlThe WHO technical consultation on folate and vitamin v60ftogwgkkvypg has determined that folate concentrations lessthan 4 ng/ml are considered deficient. Iron [Mass/volume] in Serum or PlasmaOrdered By: Geronimo Fofana on 01-30-2022 Iron [Mass/Vol] 43 ug/dL 40-150 [facility] Iron binding capacity [Mass/ volume] in Serum or PlasmaOrdered By: Geronimo Fofana on 01-30-2022 Iron binding capacity [Mass/Vol] 221 ug/dL 255-450 [facility] Iron saturation [Mass Fracti on] in Serum or PlasmaOrdered By: Geronimo Fofana on 01-30-2022 Iron saturation [Mass fraction] 19.0 % 20-50 [facility] Laboratory - Chemistry and C hemistry - challengeOrdered By: Geronimo Fofana on 01-30-2022 Cobalamin (Vitamin B12) [Mass/Vol] 630 pg/mL 180-914 [facility] PTH INTACTon 01-15-2022 PTH, Intact 87 pg/mL Critically high 15-65 [facility] Comment on above: Performed By: #### P THINT ####[facility] [address] [place] [address]Dr. Marlin Gonzalez CBC AUTO DIFFon 01-14-2022 BASO # 0.0 103/ul Normal 0.0-0.1 [facility] Comment on above: Performed By: #### C BC ####[facility] [address] [place] [address]Dr. Marlin Gonzalez Basophils/100 WBC (Bld) 0.4 % Normal 0.2-2.0 [facility] Comment on above: Performed By: #### C BC ####[facility] [address] [place], [place] [address]Dr. Marlin Gonzalez EO # 0.5 103/ul Normal 0.0-0.7 [facility] Comment on above: Performed By: #### C BC ####[facility] [address] [place], [place] [address]Dr. Marlin Gonzlaez Eosinophils/100 WBC (Bld) 5.3 % Normal 0.9-7.0 [facility] Comment on above: Performed By: #### C BC ####[facility] W[address]ps[address] [place], [place] [address]Dr. Marlin Gonzalez Erythrocyte distribution width (RBC) [Ratio] 15.7 % Critically high 11.0-15.0 [facility] Comment on above: Performed By: #### C BC ####[facility] [address] [place], [place] [address]Dr. Marlin Gonzalez Hematocrit (Bld) [Volume fraction] 25.3 % Critically low 36.0-48.0 [facility] Comment on above: Performed By: #### C BC ####[facility] [address] [place], [place] [address]Dr. Marlin Gonzalez Hemoglobin (Bld) [Mass/Vol] 8.0 g/dL Critically low 12.0-16.0 [facility] Comment on above: Performed By: #### C BC ####[facility] [address] [place] [address]Dr. Marlin Gonzalez IG # 0.05 10e3/ul Critically high 0.00-0.03 [facility] Comment on above: Performed By: #### C BC ####[facility] [address] [place], [place] [address]Dr. Marlin Gonzalez IG % 0.6 % Critically high 0.0-0.5 [facility] Comment on above: Performed By: #### C BC ####[facility] [address] [place], [place] [address]Dr. Marlin Gonzalez LYMPH # 1.0 103/ul Critically low 1.2-3.8 [facility] Comment on above: Performed By: #### C BC ####[facility] [address] [place], [place] [address]Dr. Marlin Gonzalez Lymphocytes/100 WBC (Bld) 10.7 % Critically low 20.5-60.0 [facility] Comment on above: Performed By: #### C BC ####[facility] [address] [place], [place] [address]Dr. Marlin Gonzalez MANUAL DIFF REQ NO Normal [facility] Comment on above: Performed By: #### C BC ####[facility] [address] [place], [place] [address]DrLucia Gonzalez MCH (RBC) [Entitic mass] 30.3 pg Normal 26.7-34.0 [facility] Comment on above: Performed By: #### C BC ####[facility] I[address] [place], [place] [address]DrLucia Gonzalez MCHC (RBC) [Mass/Vol] 31.6 g/dL Normal 29.9-35.2 [facility] Comment on above: Performed By: #### C BC ####[facility] [address] [place], [place] [address]DrLucia Gonzalez MCV (RBC) [Entitic vol] 95.8 fL Normal 81.0-99.0 [facility] Comment on above: Performed By: #### C BC ####[facility] [address] [place] [address]DrLucia Marlin Gonzalez MONO # 0.8 103/ul Normal 0.3-0.8 [facility] Comment on above: Performed By: #### C BC ####[facility] [address] [place] [address]DrLucia Gonzalez Monocytes/100 WBC (Bld) 8.5 % Normal 1.7-12.0 [facility] Comment on above: Performed By: #### C BC ####[facility] [address] [place], [place] [address]Dr. Marlin Gonzalez NEUT # 6.6 103/ul Critically high 1.4-6.5 [facility] Comment on above: Performed By: #### C BC ####[facility] Pdfmrqnklz[address] [place], [place] [address]Dr. Marlin Gonzalez Neutrophils/100 WBC (Bld) 74.5 % Normal 43.0-75.0 [facility] Comment on above: Performed By: #### C BC ####[facility] E[address] [place], [place] [address]DrLucia Katherinearmando Gonzalez Platelet mean volume (Bld) [Entitic vol] 9.1 fL Critically low 9.5-13.5 [facility] Comment on above: Performed By: #### C BC ####[facility] [address] [place], [place] [address]Dr. Marlin Gonzalez PLT 216 103/ul Normal 150-450 [facility] Comment on above: Performed By: #### C BC ####[facility] [address] [place], [place] [address]DrLucia Gonzalez RBC 2.64 106/ul Critically low 4.20-5.40 [facility] Comment on above: Performed By: #### C BC ####[facility] Md[address]pm[address] [place], [place] [address]DrLucia Gonzalez WBC 8.9 103/ul Normal 4.0-11.0 [facility] Comment on above: Performed By: #### C BC ####[facility] [address] [place] [address]Dr. Marlin Gonzalez FERRITINon 01-14-2022 Ferritin [Mass/Vol] 2230.0 ng/mL Critically high 8.0-252.0 The [facility] Comment on above: Performed By: #### F ERR, FETIBC, VITAD ####[facility] [address] [place] [address]Dr. Marlin Gonzalez IRON AND TIBCon 01-14-2022 % SATURATION 26.9 % Normal [facility] Comment on above: Performed By: #### F ERR, FETIBC, VITAD ####[facility] [address] [place] [address]Dr. Marlin Gonzalez Iron [Mass/Vol] 56.0 ug/dL Normal 50.0-170.0 The [facility] Comment on above: Performed By: #### F ERR, FETIBC, VITAD ####[facility] [address]ustohha[address] [place] [address]Dr. Marlin Gonzalez TIBC DIRECT 208.0 ug/dL Critically low 250.0-450.0 The [facility] Comment on above: Performed By: #### F ERR, FETIBC, VITAD ####[facility] [address] [place] [address]Dr. Marlin Gonzalez PROF 14(COMP METB)on 022 Albumin [Mass/Vol] 2.8 g/dL Critically low 3.4-5.0 Th e [facility] Comment on above: Performed By: #### C MP ####[facility] [address]ouv[address] [place], [place] [address]Dr. Marlin Gonzalez Albumin/Globulin [Mass ratio] 0.7 {ratio} Normal The [facility] Comment on above: Performed By: #### C MP ####[facility] [address]fr[address] [place] [address]Dr. Marlin Gonzalez ALP [Catalytic activity/Vol] 171 U/L Critically high 46-116 The [facility] Comment on above: Performed By: #### C MP ####[facility] [address] [place] [id number]. Marlin Gonzalez ALT [Catalytic activity/Vol] 33 U/L Normal 14-59 [facility] Comment on above: Performed By: #### C MP ####[facility] [address]cccf[address] [place] [id number]. Marlin Gonzalez Anion gap [Moles/Vol] 12.8 mmol/L Normal Th e [facility] Comment on above: Performed By: #### C MP ####[facility] S[address]wn[address] [place] [address]Dr. Marlin Gonzalez AST [Catalytic activity/Vol] 15 U/L Normal 15-37 [facility] Comment on above: Performed By: #### C MP ####[facility] U[address]wldswhi[address] [place], [place] [address]Dr. Marlin Gonzalez Bilirubin [Mass/Vol] 0.3 mg/dL Normal 0.2-1.0 [facility] Comment on above: Performed By: #### C MP ####[facility] Qm[address]ljpi[address] [place], [place] [address]Dr. Marlin Carlos Calcium [Mass/Vol] 9.2 mg/dL Normal 8.5-10.1 [facility] Comment on above: Performed By: #### C MP ####[facility] Hthvcqmlsv[address] [place], [place] [address]Dr. Marlin Gonzalez Chloride [Moles/Vol] 98 mmol/L Normal 98-107 The [facility] Comment on above: Performed By: #### C MP ####[facility] V[address]xwwsjke[address] [place], [place] [address]Dr. Marlin Gonzalez CO2 [Moles/Vol] 27.4 mmol/L Normal 21.0-32.0 The [facility] Comment on above: Performed By: #### C MP ####[facility] Gbzfqehzmi[address] [place], [place] [address]Dr. Marlin Carlos Creatinine [Mass/Vol] 2.76 mg/dL Critically high 0.55-1.02 [facility] Comment on above: Performed By: #### C MP ####[facility] [address] [place] [id number]. Marlin Gonzalez EGFR-AF ARGENTINE 20 mL/min/1.73m2 Critically low >=60 [facility] Comment on above: Performed By: #### C MP ####[facility] E[address]ci[address] [place] [address]Dr. Marlin Carlos EGFR-NON AF ARGENTINE 17 mL/min/1.73m2 Critically low >=60 [facility] Comment on above: Performed By: #### C MP ####[facility] Mqxvknegvj[address] [place] [address]Dr. Marlin Carlos Globulin (S) [Mass/Vol] 4.2 g/dL Normal [facility] Comment on above: Performed By: #### C MP ####[facility] [address]qfr[address]rutt[address] [place], [place] [address]Dr. Katherinearmando Carlos Glucose [Mass/Vol] 217 mg/dL Critically high 74-106 [facility] Comment on above: Performed By: #### C MP ####[facility] [address]bswkejdza[address] [place], [place] [address]Dr. Katherinearmando Carlos Potassium [Moles/Vol] 4.2 mmol/L Normal 3.5-5.1 [facility] Comment on above: Performed By: #### C MP ####[facility] [address]zxql[address] [place], [place] [address]Dr. Marlin Gonzalez Protein [Mass/Vol] 7.0 g/dL Normal 6.4-8.2 [facility] Comment on above: Performed By: #### C MP ####[facility] [address] [place] [address]Dr. Katherinearmando Gonzalez Sodium [Moles/Vol] 134 mmol/L Critically low 136-145 [facility] Comment on above: Performed By: #### C MP ####[facility] [address]els[address] [place] [id number]. Katherinearmando Carlos Urea nitrogen [Mass/Vol] 95.0 mg/dL Critically high 7.0-18.0 [facility] Comment on above: Performed By: #### C MP ####[facility] [address] [place], [place] [address]Dr. Marlin Gonzalez Urea nitrogen/Creatinine [Mass ratio] 34.4 mg/mg Normal The [facility] Comment on above: Performed By: #### C MP ####[facility] Z[address] [place], [place] [address]Dr. Marlin Gonzalez UA RANDOMon 01-14-2022 Bilirubin Ql (U) Negative Normal NEGATIVE The [facility] Comment on above: Performed By: #### U A ####[facility] Sz[address]us[address] [place], [place] [address]Dr. Marlin Gonzalez Clarity (U) CLEAR Normal CLEAR [facility] Comment on above: Performed By: #### U A ####[facility] [address]zoq[address] [place], [place] [address]Dr. Marlin Gonzalez Color (U) LT. YELLOW Normal YELLOW [facility] Comment on above: Performed By: #### U A ####[facility] [address] [place], [place] [address]Dr. Marlin Gonzalez Glucose Ql (U) 100 mg/dl Abnormal NEGATIVE [facility] Comment on above: Performed By: #### U A ####[facility] [address]iyokndglf[address] [place], [place] [address]Dr. Marlin Gonzalez Hemoglobin Ql (U) Negative Normal NEGATIVE [facility] Comment on above: Performed By: #### U A ####[facility] H[address]jqf[address] [place], [place] [address]Dr. Marlin Gonzalez Ketones Ql (U) Negative Normal NEGATIVE [facility] Comment on above: Performed By: #### U A ####[facility] Tbrebubosm[address] [place], [place] [address]Dr. Marlin Gonzalez LEUKOCYTES Negative Normal NEGATIVE [facility] Comment on above: Performed By: #### U A ####[facility] [address]ef[address]cc[address] [place], [place] [address]Dr. Marlin Gonzalez Nitrite Ql (U) Negative Normal NEGATIVE [facility] Comment on above: Performed By: #### U A ####[facility] [address]swisbr[address] [place] [address]Dr. Marlin Gonzalez pH (U) 5.5 [pH] Normal 5-9 [facility] Comment on above: Performed By: #### U A ####[facility] [address]kcluugxc[address] [place] [address]Dr. Marlin Gonzalez SPEC GRAVITY 1.020 Normal 1.005-<=1.02 5 [facility] Comment on above: Performed By: #### U A ####[facility] I[address]zjlr[address] [place], [place] [address]Dr. Marlin Gonzalez UA PROTEIN 100 mg/dl Abnormal NEGATIVE/ TRACE The [facility] Comment on above: Performed By: #### U A ####[facility] [address]rx[address]fx[address] [place], [place] [address]Dr. Marlin Gonzalez Urobilinogen Qn (U) 0.2 {Ryan'U}/dL Normal 0.2 - 1. 0 [facility] Comment on above: Performed By: #### U A ####[facility] V[address]zif[address] [place], [place] [address]Dr. Marlin Gonzalez URIC ACID SERUMon 01-14-2022 Urate [Mass/Vol] 8.4 mg/dL Critically high 2.6-6.0 The [facility] Comment on above: Performed By: #### U SOO ####[facility] Ztvcf[address]rdh[address] [place], [place] [address]Dr. Marlin Gonzalez URINE T PROTEIN CREAT RATIOo n 01-14-2022 Protein (U) [Mass/Vol] 165.0 mg/dL Critically high <=12.0 The [facility] Comment on above: Performed By: #### U RTPCR ####[facility] Jquvn[address]chtl[address] [place], [place] [address]Dr. Marlin Gonzalez UR PROT CREAT RAT 4.18 Normal [facility] Comment on above: Performed By: #### U RTPCR ####[facility] Y[address]uiquter[address] [place], [place] [address]Dr. Katherinearmando Carlos URINE CREAT 39.50 mg/dL Normal 20.00-300.00 The [facility] Comment on above: Performed By: #### U RTPCR ####[facility] [address] [place] [id number]. Marlin Gonzalez VITAMIN D 25 OHon 01-14-2022 VIT D 25-OH 36.3 ng/mL Normal [facility] Comment on above: Performed By: #### F ERR, FETIBC, VITAD ####[facility] [address]rc[address] [place] [id number]. Marlin Gonzalez VIT D RANGES SEE BELOW Normal [facility] Comment on above: Result Comment: <20 ng/mL Vit D deficient 20 - <30 ng/mL Vit D insufficient 30 - 100 ng/mL Vit D sufficient >100 ng/mL Potential Toxicity Performed By: #### F ERR, FETIBC, VITAD ####[facility] [address] [place], [place] [address]Dr. Marlin Gonzalez XR CHEST 2 Von 01-14-2022 XR CHEST 2 V Normal [facility] ACID FAST SMEAR AND CXon Acid Fast Culture Negative Normal [facility] Comment on above: Result Comment: No a immanuel fast bacilli isolated after 6 weeks. Performed By: #### A FB ####[facility] Mg[address]qn[address] [place], [place] [address]Dr. Marlin Gonzalez Acid Fast Smear Negative Normal [facility] Comment on above: Performed By: #### A FB ####[facility] Hmumjknipb75[address] [address] [place], [place] [address]Dr. Marlin Gonzalez [employer] Specimen Processing Direct Inoculation Normal [facility] Comment on above: Performed By: #### A FB ####[facility] Fsblddzdj[address] [place], [place] [address]Dr. Marlin Gonzalez FUNGAL CULTUREon 12-07-2021 Fungus (Mycology) Culture Final report Normal [facility] Comment on above: Performed By: #### C XFUN ####[facility] [address] [place], [place] [address]Dr. Marlin Gonzalez Fungus Stain Final report Normal [facility] Comment on above: Performed By: #### C XFUN ####[facility] Rdtwcq[address] [place], [place] [id number]. Marlin Gonzalez Result 1 Comment Normal [facility] Comment on above: Result Comment: WILMA/ Calcofluor preparation: no fungus observed. Performed By: #### C XFUN ####[facility] [address] [place], [place] [address]Dr. Marlin Gonzalez Result Comment: No y east or mold isolated after 4 weeks. PTH INTACTon 11-24-2021 PTH, Intact 66 pg/mL Critically high 15-65 [facility] Comment on above: Performed By: #### P THINT ####[facility] J[address] [place], [place] [address]Dr. Marlin Gonzalez FERRITINon 11-22-2021 Ferritin [Mass/Vol] 3067.0 ng/mL Critically high 8.0-252.0 [facility] Comment on above: Performed By: #### F ERR, B12FOL, FETIBC, VITAD ####[facility] Fra[address] [place], [place] [address]Dr. Marlin Gonzalez HEMOGLOBIN AND HEMATOCRITon 11-22-2021 Hematocrit (Bld) [Volume fraction] 27.7 % Critically low 36.0-48.0 [facility] Comment on above: Performed By: #### H GBHCT ####[facility] Cmbwqwz[address] [place], [place] [address]Dr. Marlin Gonzalez Hemoglobin (Bld) [Mass/Vol] 8.9 g/dL Critically low 12.0-16.0 [facility] Comment on above: Performed By: #### H GBHCT ####[facility] K[address] [place], [place] [address]Dr. Marlin Gonzalez IRON AND TIBCon 11-22-2021 % SATURATION 15.2 % Normal [facility] Comment on above: Performed By: #### F ERR, B12FOL, FETIBC, VITAD ####[facility] [address] [place], [place] [address]Dr. Marlin Gonzalez Iron [Mass/Vol] 25.0 ug/dL Critically low 50.0-170.0 [facility] Comment on above: Performed By: #### F ERR, B12FOL, FETIBC, VITAD ####[facility] [address] [place] [address]Dr. Marlin Gonzalez TIBC DIRECT 165.0 ug/dL Critically low 250.0-450.0 [facility] Comment on above: Performed By: #### F ERR, B12FOL, FETIBC, VITAD ####[facility] F[address] [place] [address]Dr. Mralin Gonzalez MAGNESIUMon 11-22-2021 Magnesium [Mass/Vol] 2.1 mg/dL Normal 1.8-2.4 [facility] Comment on above: Performed By: #### C MP, MG, URIC ####[facility] Xqxlxltj[address] [place] [address]Dr. Marlin Gonzalez PROF 14(COMP METB)on 022 Albumin [Mass/Vol] 2.6 g/dL Critically low 3.4-5.0 [facility] Comment on above: Performed By: #### C MP, MG, URIC ####[facility] Yxgiqyehpz[address] [place] [address]Dr. Marlin Gonzalez Albumin/Globulin [Mass ratio] 0.7 {ratio} Normal [facility] Comment on above: Performed By: #### C MP, MG, URIC ####[facility] Kfmidphrxz[address] [place] [address]Dr. Marlin Gonzalez ALP [Catalytic activity/Vol] 93 U/L Normal 46-116 [facility] Comment on above: Performed By: #### C MP, MG, URIC ####[facility] Zevepezgvl[address] [place] [address]Dr. Marlin Gonzalez ALT [Catalytic activity/Vol] 54 U/L Normal 14-59 [facility] Comment on above: Performed By: #### C MP, MG, URIC ####[facility] Mjnkloimly[address] [place] [address]Dr. Marlin Gonzalez Anion gap [Moles/Vol] 13.0 mmol/L Normal [facility] Comment on above: Performed By: #### C MP, MG, URIC ####[facility] Ygfzxnwdgw1612 [place] [address]Dr. Marlin Gonzalez AST [Catalytic activity/Vol] 38 U/L Critically high 15-37 [facility] Comment on above: Performed By: #### C MP, MG, URIC ####[facility] Wexdtigcml[address] [place] [address]Dr. Marlin Gonzalez Bilirubin [Mass/Vol] 0.4 mg/dL Normal 0.2-1.0 [facility] Comment on above: Performed By: #### C MP, MG, URIC ####[facility] Rdchpsuidw[address] [place] [address]Dr. Marlin Gonzalez Calcium [Mass/Vol] 9.4 mg/dL Normal 8.5-10.1 [facility] Comment on above: Performed By: #### C MP, MG, URIC ####[facility] Reegmurayh[address] [place] [address]Dr. Marlin Gonzalez Chloride [Moles/Vol] 95 mmol/L Critically low 98-107 [facility] Comment on above: Performed By: #### C MP, MG, URIC ####[facility] Wyvaouxtnn[address] [place] [address]Dr. Marlin Gonzalez CO2 [Moles/Vol] 27.3 mmol/L Normal 21.0-32.0 [facility] Comment on above: Performed By: #### C MP, MG, URIC ####[facility] Isqbvbxvph5368 [place] [address]Dr. Marlin Gonzalez Creatinine [Mass/Vol] 3.74 mg/dL Critically high 0.55-1.02 [facility] Comment on above: Performed By: #### C MP, MG, URIC ####[facility] Jxjszmgkth4792 [place] [address]Dr. Marlin Gonzalez EGFR-AF ARGENTINE 14 mL/min/1.73m2 Critically low >=60 [facility] Comment on above: Performed By: #### C MP, MG, URIC ####[facility] Iknjovpdwa[address] [place] [address]Dr. Marlin Gonzalez EGFR-NON AF ARGENTINE 12 mL/min/1.73m2 Critically low >=60 [facility] Comment on above: Performed By: #### C MP, MG, URIC ####[facility] Rfhprmnmaa30[address] [place] [address]Dr. Marlin Gonzalez Globulin (S) [Mass/Vol] 3.7 g/dL Normal [facility] Comment on above: Performed By: #### C MP, MG, URIC ####[facility] Bbgbexzgcn75[address] [place] [address]Dr. Marlin Gonzalez Glucose [Mass/Vol] 160 mg/dL Critically high 74-106 [facility] Comment on above: Performed By: #### C MP, MG, URIC ####[facility] O[address]ve[address] [place], [place] [address]Dr. Marlin Gonzalez Potassium [Moles/Vol] 4.3 mmol/L Normal 3.5-5.1 [facility] Comment on above: Performed By: #### C MP, MG, URIC ####[facility] Uebevabiiq[address] [place], [place] [address]Dr. Marlin Gonzalez Protein [Mass/Vol] 6.3 g/dL Critically low 6.4-8.2 [facility] Comment on above: Performed By: #### C MP, MG, URIC ####[facility] Culjrnlpoc[address] [place], [place] [address]Dr. Marlin Gonzalez Sodium [Moles/Vol] 131 mmol/L Critically low 136-145 [facility] Comment on above: Performed By: #### C MP, MG, URIC ####[facility] Flphfkywjy[address] [place], [place] [address]Dr. Marlin Gonzalez Urea nitrogen [Mass/Vol] 80.0 mg/dL Critically high 7.0-18.0 [facility] Comment on above: Performed By: #### C MP, MG, URIC ####[facility] Qyftnumabh4614 [place] [address]Dr. Marlin Gonzalez Urea nitrogen/Creatinine [Mass ratio] 21.4 mg/mg Normal [facility] Comment on above: Performed By: #### C MP, MG, URIC ####[facility] L[address]prwafvba[address] [place], [place] [address]Dr. Marlin Gonzalez UA RANDOMon 11-22-2021 Bilirubin Ql (U) Negative Normal NEGATIVE [facility] Comment on above: Performed By: #### U A ####[facility] H[address]slfzq[address] [place], [place] [address]Dr. Marlin Gonzalez Clarity (U) CLEAR Normal CLEAR [facility] Comment on above: Performed By: #### U A ####[facility] Gemulcpyhf4738[address] [place], [place] [address]Dr. Marlin Gonzalez Color (U) LT. YELLOW Normal YELLOW [facility] Comment on above: Performed By: #### U A ####[facility] Nuhhd[address]clco[address] [place], [place] [address]Dr. Marlin Gonzalez Glucose Ql (U) Negative Normal NEGATIVE [facility] Comment on above: Performed By: #### U A ####[facility] Ncrrtsdnot[address] [place], [place] [address]Dr. Marlin Gonzalez Hemoglobin Ql (U) Negative Normal NEGATIVE [facility] Comment on above: Performed By: #### U A ####[facility] Pcqqidzuzi[address] [place], [place] [address]Dr. Marlin Gonzalez Ketones Ql (U) Negative Normal NEGATIVE [facility] Comment on above: Performed By: #### U A ####[facility] Dxwj[address]rdyh[address] [place], [place] [address]Dr. Marlin Gonzalez LEUKOCYTES Negative Normal NEGATIVE [facility] Comment on above: Performed By: #### U A ####[facility] Ksobnqjepp[address] [place], [place] [address]Dr. Marlin Gonzalez Nitrite Ql (U) Negative Normal NEGATIVE [facility] Comment on above: Performed By: #### U A ####[facility] Pbtsfjawvs[address] [place], [place] [address]Dr. Marlin Gonzalez pH (U) 6.0 [pH] Normal 5-9 [facility] Comment on above: Performed By: #### U A ####[facility] Ecoocimmgc[address] [place], [place] [address]Dr. Marlin Gonzalez SPEC GRAVITY 1.010 Normal 1.005-<=1.02 5 [facility] Comment on above: Performed By: #### U A ####[facility] Fhm[address]nkvwmn[address] [place] [address]Dr. Marlin Gonzalez UA PROTEIN 30 mg/dl Abnormal NEGATIVE/ TRACE [facility] Comment on above: Performed By: #### U A ####[facility] Ogqpxksxxj[address] [place] [address]Dr. Marlin Gonzalez Urobilinogen Qn (U) 0.2 {Ryan'U}/dL Normal 0.2 - 1. 0 [facility] Comment on above: Performed By: #### U A ####[facility] X[address]ok[address] [place], [place] [address]Dr. Marlin Gonzalez URIC ACID SERUMon 11-22-2021 Urate [Mass/Vol] 9.9 mg/dL Critically high 2.6-6.0 [facility] Comment on above: Performed By: #### C MP, MG, URIC ####[facility] Uoupyjeuxs[address] [place] [address]Dr. Marlin Gonzalez URINE T PROTEIN CREAT RATIOo n 11-22-2021 Protein (U) [Mass/Vol] 58.1 mg/dL Critically high <=12.0 [facility] Comment on above: Performed By: #### U RTPCR ####[facility] Ejjedxam[address] [place] [address]Dr. Marlin Gonzalez UR PROT CREAT RAT 1.16 Normal [facility] Comment on above: Performed By: #### U RTPCR ####[facility] Uahyrelhaz[address] [place] [address]Dr. Marlin Gonzalez URINE CREAT 49.94 mg/dL Normal 20.00-300.00 [facility] Comment on above: Performed By: #### U RTPCR ####[facility] Ysjtoygrbt[address] [place] [address]Dr. Marlin Gonzalez VIT B12 AND FOLATEon 022 Cobalamin (Vitamin B12) [Mass/Vol] 726.0 pg/mL Normal 193.0-986.0 [facility] Comment on above: Performed By: #### F ERR, B12FOL, FETIBC, VITAD ####[facility] Efmp[address] [place], [place] [address]Zu. Marlin Gonzalez FOLATE 21.50 ng/mL Normal 8.60-58.90 [facility] Comment on above: Performed By: #### F ERR, B12FOL, FETIBC, VITAD ####[facility] [address]ql[address] [place], [place] [address]Xr. Marlin Gonzalez VITAMIN D 25 OHon 11-22-2021 VIT D 25-OH 32.1 ng/mL Normal [facility] Comment on above: Performed By: #### F ERR, B12FOL, FETIBC, VITAD ####[facility] [address]cys[address] [place], [place] [address]Al. Marlin Gonzalez VIT D RANGES SEE BELOW Normal [facility] Comment on above: Result Comment: <20 ng/mL Vit D deficient 20 - <30 ng/mL Vit D insufficient 30 - 100 ng/mL Vit D sufficient >100 ng/mL Potential Toxicity Performed By: #### F ERR, B12FOL, FETIBC, VITAD ####[facility] R[address]vfbalzs[address] [place] [id number]. Marlin Gonzalez Basophils Auto (Bld) [#/Vol] Ordered By: Carlton Mtz on 11-20-2021 Basophils (Bld) [#/Vol] 0.0 10*3/uL 0.0-0.2 [facility] Basophils/100 WBC Auto (Bld) Ordered By: Carlton Mtz on 11-20-2021 Basophils/100 WBC (Bld) 0.5 % . [facility] Blood hemoglobin measurement (mass/volume)Ordered By: Carlton Mtz on 11-20-2021 Hemoglobin (Bld) [Mass/Vol] 9.0 g/dL 11.8-15.4 [facility] Blood leukocytes automated c ount (number/volume)Ordered By: Carlton Mtz on 11-20-2021 WBC (Bld) [#/Vol] 8.2 10*3/uL 4.5-11.0 [facility] Creatinine and Glomerular fi ltration rate.predicted panel (S/P/Bld)Ordered By: Carlton Mtz on 11-20-2021 Creatinine [Mass/Vol] 3.04 mg/dL 0.44-1.[address] [facility] Eosinophils Auto (Bld) [#/Vo l]Ordered By: Carlton Mtz on 11-20-2021 Eosinophils (Bld) [#/Vol] 0.1 10*3/uL 0.0-0.45 [facility] Eosinophils/100 WBC Auto (Bl d)Ordered By: Carlton Mtz on 11-20-2021 Eosinophils/100 WBC (Bld) 1.6 % . [facility] Erythrocyte distribution wid th Auto (RBC) [Ratio]Ordered By: Carlton Mtz on 11-20-2021 Erythrocyte distribution width (RBC) [Ratio] 15.2 % 11.9-15.3 [facility] Estimated glomerular filtrat ion rate (GFR) non- AmericanOrdered By: Carlton Mtz on 11-20-2021 GFR/1.73 sq M.predicted among non-blacks MDRD (S/P/Bld) [Vol rate/Area] 15 mL/Min [facility] Glucose Glucometer (BldC) [M ass/Vol]Ordered By: Annette Tenorio on 11-20-2021 Glucose [Mass/Vol] 249 mg/dL [facility] Comment on above: Random Glucose Refer ence Range is dependent on time and content of last meal. Glucose of more than 200 mg/dL in a nonstressed, ambulatory subject supports the diagnosis of Diabetes Mellitus. Hematocrit Auto (Bld) [Volum e fraction]Ordered By: Carlton Mtz on 11-20-2021 Hematocrit (Bld) [Volume fraction] 26.7 % 34.0-46.4 [facility] Laboratory - Hematology and Cell countsOrdered By: Carlton Mtz on 11-20-2021 Nucleated RBC/100 WBC (Bld) [Ratio] 0.0 % 0-0.5 [facility] Lymphocytes Auto (Bld) [#/Vo l]Ordered By: Carlton Mtz on 11-20-2021 Lymphocytes (Bld) [#/Vol] 1.1 10*3/uL 1.00-4.8 [facility] Lymphocytes/100 WBC Auto (Bl d)Ordered By: Carlton Mtz on 11-20-2021 Lymphocytes/100 WBC (Bld) 12.9 % . [facility] MCH Auto (RBC) [Entitic mass ]Ordered By: Carlton Mtz on 11-20-2021 MCH (RBC) [Entitic mass] 30.3 pg 24.7-34.3 [facility] MCHC Auto (RBC) [Mass/Vol]Or dered By: Carlton Mtz on 11-20-2021 MCHC (RBC) [Mass/Vol] 33.6 g/dL 32.0-35.0 [facility] MCV Auto (RBC) [Entitic vol] Ordered By: Carlton Mtz on 11-20-2021 MCV (RBC) [Entitic vol] 90.2 fL 80-100 [facility] Monocytes Auto (Bld) [#/Vol] Ordered By: Carlton Mtz on 11-20-2021 Monocytes (Bld) [#/Vol] 1.2 10*3/uL 0.0-0.8 [facility] Monocytes/100 WBC Auto (Bld) Ordered By: Carlton Mtz on 11-20-2021 Monocytes/100 WBC (Bld) 14.1 % . [facility] Neutrophils Auto (Bld) [#/Vo l]Ordered By: Carlton Mtz on 11-20-2021 Neutrophils (Bld) [#/Vol] 5.8 10*3/uL 1.8-7.7 [facility] Neutrophils/100 WBC Auto (Bl d)Ordered By: Carlton Mtz on 11-20-2021 Neutrophils/100 WBC (Bld) 70.9 % . [facility] No Panel InformationOrdered By: Annette Tenorio on 11-20-2021 Bedside Glucose Comment Glu2: cleaned meter [facility] No Panel InformationOrdered By: Carlton Mtz on 11-20-2021 Estimated GFR () 18 mL/Min [facility] Comment on above: GFR estimated refere nce range: According to KDOQI guidelines, <60 ml/min/1.73m2 is sufficient to diagnose a patient with chronic kidney disease. Pharmacy Creatinine Clearance (Chem 15.77 [facility] Platelet mean volume Auto (B ld) [Entitic vol]Ordered By: Carlton Mtz on 11-20-2021 Platelet mean volume (Bld) [Entitic vol] 7.8 fL 6.3-10.7 [facility] Platelets Auto (Bld) [#/Vol] Ordered By: Carlton Mtz on 11-20-2021 Platelets (Bld) [#/Vol] 260 10*3/uL 150-450 [facility] RBC Auto (Bld) [#/Vol]Ordere d By: Carlton Mtz on 11-20-2021 RBC (Bld) [#/Vol] 2.96 10*6/uL 3.60-5.00 [facility] Serum or plasma anion gap de terminationOrdered By: Carlton Mtz on 11-20-2021 Anion gap [Moles/Vol] 13.6 mmol/L 6.0-15.0 [facility] Serum or plasma calcium eugenie urement (mass/volume)Ordered By: Carlton Mtz on 11-20-2021 Calcium [Mass/Vol] 8.8 mg/dL 8.2-10.2 [facility] Serum or plasma chloride marciano surement (moles/volume)Ordered By: Carlton Mtz on 11-20-2021 Chloride [Moles/Vol] 98 mmol/L 95-114 [facility] Serum or plasma glucose eugenie urement (mass/volume)Ordered By: Carlton Mtz on 11-20-2021 Glucose [Mass/Vol] 133 mg/dL 70-100 [facility] Comment on above: ADA recommended refe rence rangeRandom Glucose Reference Range is dependent on time and content of last meal. Glucose of more than 200 mg/dL in a nonstressed, ambulatory subject supports the diagnosis of Diabetes Mellitus. Serum or plasma potassium me asurement (moles/volume)Ordered By: Carlton Mtz on 11-20-2021 Potassium [Moles/Vol] 3.9 mmol/L 3.5-5.[address] [facility] Serum or plasma sodium measu rement (moles/volume)Ordered By: Carlton Mtz on 11-20-2021 Sodium [Moles/Vol] 132 mmol/L 136-146 [facility] Serum or plasma total carbon dioxide measurement (moles/volume)Ordered By: Carlton Mtz on 11-20-2021 CO2 [Moles/Vol] 24.3 mmol/L 22.0-30.0 [facility] Serum or plasma urea nitroge n measurement (mass/volume)Ordered By: Carlton Mtz on 11-20-2021 Urea nitrogen [Mass/Vol] 69 mg/dL 9-23 [facility] Bacteria identified Anaer cx Nom (Unsp spec)Ordered By: Carlton Mtz on 11-19-2021 Anaerobic microbial culture No Anaerobes Isolated 3 Days [facility] Troponin I.cardiac [Mass/vol ume] in Serum or Plasma by High sensitivity methodOrdered By: Carlton Mtz on 11-18-2021 Troponin I.cardiac High sensitivity method [Mass/Vol] 170 pg/mL 0-15 [facility] Comment on above: Results calledat 064 5 on 11/18/21 ABO and Rh group post transf usion reaction Nom (Bld)Ordered By: Carlton Mtz on 11-17-2021 Microscopic observation Gram stain Nom (Unsp spec) [facility] CT biopsyOrdered By: Geronimo shoemaker on 11-17-2021 Transferrin [Mass/Vol] 134 mg/dL 180-380 [facility] Ferritin [Mass/volume] in Se rum or PlasmaOrdered By: Geronimo Fofana on 11-17-2021 Ferritin [Mass/Vol] 1362.5 ng/mL 11-306.[address] [facility] Folate [Mass/volume] in Seru m or PlasmaOrdered By: Geronimo Fofana on 11-17-2021 Folate [Mass/Vol] 19.0 ng/mL >5.9 [facility] Comment on above: Folate reference ran ge: >5.9 ng/mlThe WHO technical consultation on folate and vitamin f17hhwcwoivjhdy has determined that folate concentrations lessthan 4 ng/ml are considered deficient. Iron [Mass/volume] in Serum or PlasmaOrdered By: Geronimo Fofana on 11-17-2021 Iron [Mass/Vol] 39 ug/dL 40-150 [facility] Iron binding capacity [Mass/ volume] in Serum or PlasmaOrdered By: Geronimo Fofana on 11-17-2021 Iron binding capacity [Mass/Vol] 188 ug/dL 255-450 [facility] Iron saturation [Mass Fracti on] in Serum or PlasmaOrdered By: Geronimo Fofana on 11-17-2021 Iron saturation [Mass fraction] 20.0 % 20-50 [facility] Laboratory - Chemistry and C hemistry - challengeOrdered By: Geronimo Fofana on 11-17-2021 Cobalamin (Vitamin B12) [Mass/Vol] 529 pg/mL 180-914 [facility] Activated partial thrombopla stin time (aPTT) in platelet poor plasma by coagulation aOrdered By: Carlton Mtz on 11-16-2021 aPTT Coag (PPP) [Time] 32.8 s 25.1-36.5 [facility] Body fluid albumin measureme nt (mass/volume)Ordered By: Carlton Mtz on 11-16-2021 Albumin (Body fld) [Mass/Vol] 2.6 g/dL 3.2-5.5 [facility] Body fluid differential cell countOrdered By: Carlton Mtz on 11-16-2021 Differential panel (Body fld) 40 % [facility] Comment on above: The reference interv al and other method performance specifications have not been established for this body fluid. The test result must be integrated into the clinical context for interpretation. Body fluid protein measureme nt (mass/volume)Ordered By: Carlton Mtz on 11-16-2021 Protein (Body fld) [Mass/Vol] 2.9 g/dL [facility] CARDIAC JOSSIE 3-6on 2 CK [Catalytic activity/Vol] 62 U/L Normal 26-192 [facility] Comment on above: Performed By: #### C MREP ####[facility] [address] [place] [id number]. Marlin Gonzalez CK.MB [Mass/Vol] 3.73 ng/mL Critically high <=3.60 [facility] Comment on above: Performed By: #### C MREP ####[facility] Lenbcgemsb[address] [place] [address]Dr. Marlin Gonzalez HSTROP 379.6 pg/mL Critically high 4.0-51.3 [facility] Comment on above: Result Comment: CUT- OFF POINTS HAVE BEEN ESTABLISHED BASED ON THE FOURTH UNIVERSAL DEFINITIONS OF MYOCARDIALINFARCTION. THE UPPER REFERENCE LIMIT (URL) OF TROPONIN, DEFINED THE 99TH PERCENTILE OFcTnI DISTRIBUTION IN A REFERENCE POPULATION, HAS BEEN CONFIRMED THE DECISION THRESHOLDFOR CT DIAGNOSIS. Performed By: #### C MREP ####[facility] [address]tg[address] [place] [address]Dr. Marlin Gonzalez CK [Catalytic activity/Vol] 61 U/L Normal 26-192 [facility] Comment on above: Performed By: #### C MREP ####[facility] Yvciarmghi[address] [place] [id number]. Marlin Gonzalez CK.MB [Mass/Vol] 4.80 ng/mL Critically high <=3.60 [facility] Comment on above: Performed By: #### C MREP ####[facility] Avriqbclsd[address] [place] [address]Dr. Marlin Gonzalez HSTROP 415.2 pg/mL Critically high 4.0-51.3 [facility] Comment on above: Result Comment: CUT- OFF POINTS HAVE BEEN ESTABLISHED BASED ON THE FOURTH UNIVERSAL DEFINITIONS OF MYOCARDIALINFARCTION. THE UPPER REFERENCE LIMIT (URL) OF TROPONIN, DEFINED THE 99TH PERCENTILE OFcTnI DISTRIBUTION IN A REFERENCE POPULATION, HAS BEEN CONFIRMED THE DECISION THRESHOLDFOR CT DIAGNOSIS. Performed By: #### C MREP ####[facility] Wlltbwrggw[address] [place] [address]Dr. Marlin Gonzalez CARDIAC JOSSIE ADMITon 022 CK [Catalytic activity/Vol] 66 U/L Normal 26-192 [facility] Comment on above: Performed By: #### C SHARI, CHELSI ####[facility] Pmateyxoug[address] [place], [place] [address]Dr. Marlin Gonzalez CK.MB [Mass/Vol] 4.87 ng/mL Critically high <=3.60 [facility] Comment on above: Performed By: #### CHELSI MOY ####[facility] [address] [place], [place] [address]Dr. Marlin Gonzalez HSTROP 393.2 pg/mL Critically high 4.0-51.3 [facility] Comment on above: Result Comment: CUT- OFF POINTS HAVE BEEN ESTABLISHED BASED ON THE FOURTH UNIVERSAL DEFINITIONS OF MYOCARDIALINFARCTION. THE UPPER REFERENCE LIMIT (URL) OF TROPONIN, DEFINED THE 99TH PERCENTILE OFcTnI DISTRIBUTION IN A REFERENCE POPULATION, HAS BEEN CONFIRMED THE DECISION THRESHOLDFOR CT DIAGNOSIS. Performed By: #### CHELSI MOY ####[facility] Xfkgntrqau[address] [place], [place] [address]Dr. Marlin Gonzalez GHASSAN 237 ng/mL Critically high 9-82 [facility] Comment on above: Performed By: #### CHELSI MOY ####[facility] [address] [place], [place] [address]Dr. Marlin Gonzalez CBC AUTO DIFFon 11-16-2021 BASO # 0.0 103/ul Normal 0.0-0.1 [facility] Comment on above: Performed By: #### Tara BC ####[facility] O[address] [place], [place] [address]Dr. Marlin Gonzalez Basophils/100 WBC (Bld) 0.3 % Normal 0.2-2.0 [facility] Comment on above: Performed By: #### Tara BC ####[facility] Lyxvjfqx[address] [place] [address]Dr. Marlin Gonzalez EO # 0.4 103/ul Normal 0.0-0.7 [facility] Comment on above: Performed By: #### C BC ####[facility] Khkvfmohhl[address] [place], [place] [address]Dr. Marlin Gonzalez Eosinophils/100 WBC (Bld) 6.1 % Normal 0.9-7.0 [facility] Comment on above: Performed By: #### C BC ####[facility] Euphnixrcj[address] [place], [place] [address]Dr. Marlin Gonzalez Erythrocyte distribution width (RBC) [Ratio] 14.3 % Normal 11.0-15.0 [facility] Comment on above: Performed By: #### C BC ####[facility] M[address]xu[address] [place], [place] [address]Dr. Marlin Gonzalez Hematocrit (Bld) [Volume fraction] 27.2 % Critically low 36.0-48.0 [facility] Comment on above: Performed By: #### C BC ####[facility] Pazrcrcqvo[address] [place], [place] [address]Dr. Marlin Gonzalez Hemoglobin (Bld) [Mass/Vol] 8.6 g/dL Critically low 12.0-16.0 [facility] Comment on above: Performed By: #### C BC ####[facility] Ftuliraauj[address] [place], [place] [address]Dr. Marlin Gonzalez IG # 0.03 10e3/ul Normal 0.00-0.03 [facility] Comment on above: Performed By: #### C BC ####[facility] Zgswcrubii[address] [place], [place] [address]Dr. Marlin Gonzalez IG % 0.5 % Normal 0.0-0.5 [facility] Comment on above: Performed By: #### C BC ####[facility] Kxdejmkq[address] [place], [place] [address]Dr. Marlin Gonzalez LYMPH # 0.9 103/ul Critically low 1.2-3.8 [facility] Comment on above: Performed By: #### C BC ####[facility] Xbfshsboeq[address] [place] [address]Dr. Marlin Carlos Lymphocytes/100 WBC (Bld) 15.2 % Critically low 20.5-60.0 [facility] Comment on above: Performed By: #### C BC ####[facility] [address]re[address]audz[address] [place] [address]Dr. Marlin Carlos MANUAL DIFF REQ NO Normal [facility] Comment on above: Performed By: #### C BC ####[facility] Igutneqamu[address] [place] [address]Dr. Marlin Carlos MCH (RBC) [Entitic mass] 30.1 pg Normal 26.7-34.0 [facility] Comment on above: Performed By: #### C BC ####[facility] Hwuzy[address]bf[address] [place], [place] [address]Dr. Marlin Carlos MCHC (RBC) [Mass/Vol] 31.6 g/dL Normal 29.9-35.2 [facility] Comment on above: Performed By: #### C BC ####[facility] Gv[address]hvn[address] [place] [address]Dr. Katherinearmando Gonzalez MCV (RBC) [Entitic vol] 95.1 fL Normal 81.0-99.0 [facility] Comment on above: Performed By: #### C BC ####[facility] [address]rf[address] [place], [place] [address]Dr. Marlin Gonzalez MONO # 0.9 103/ul Critically high 0.3-0.8 [facility] Comment on above: Performed By: #### C BC ####[facility] Cbiufofsfk[address] [place] [address]Dr. Katherinearmando Gonzalez Monocytes/100 WBC (Bld) 14.7 % Critically high 1.7-12. 0 [facility] Comment on above: Performed By: #### C BC ####[facility] Zdyatdpoky[address] [place], [place] [address]Dr. Marlin Gonzalez NEUT # 3.7 103/ul Normal 1.4-6.5 [facility] Comment on above: Performed By: #### C BC ####[facility] [address]rsros[address] [place] [id number]. Marlin Gonzalez Neutrophils/100 WBC (Bld) 63.2 % Normal 43.0-75.0 [facility] Comment on above: Performed By: #### C BC ####[facility] K[address]ub[address] [place] [id number]. Marlin Gonzalez Platelet mean volume (Bld) [Entitic vol] 9.9 fL Normal 9.5-13.5 [facility] Comment on above: Performed By: #### C BC ####[facility] Zerbo[address]zcyd[address] [place] [id number]. Marlin Gonzalez PLT 300 103/ul Normal 150-450 [facility] Comment on above: Performed By: #### C BC ####[facility] Hsimtxrnag[address] [place] [id number]. Marlin Gonzalez RBC 2.86 106/ul Critically low 4.20-5.40 [facility] Comment on above: Performed By: #### C BC ####[facility] H[address]lypaucgj[address] [place] [id number]. Marlin Gonzalez WBC 5.9 103/ul Normal 4.0-11.0 [facility] Comment on above: Performed By: #### C BC ####[facility] [address]kiq[address] [place] [id number]. Marlin Gonzalez Cells Counted Total [#] in P leural fluidOrdered By: aCrlton Mtz on 11-16-2021 Cells Counted Total (Pleur fld) [#] See [facility] Comment on above: Unable to accurately quantitiate cells due to clotting, clumping, debris etc. The reference interval and other method performance specifications have not been established for this body fluid. The test result must be integrated into the clinical context for interpretation. Color of Spun Body fluidOrde red By: Carlton Mtz on 11-16-2021 Color (Spun body fld) Yellow [facility] Comment on above: The reference interv al and other method performance specifications have not been established for this body fluid. The test result must be integrated into the clinical context for interpretation. Covid-19 PCR (CVDTBH)on SARS-CoV-2 (COVID-19) RNA MADISON+probe Ql (Unsp spec) Not detected Normal NOT DETECTED [facility] Comment on above: Result Comment: When [...] for this test is supported by the Operations Advisor of Health and Human Service's declaration that [...] be used). Performed By: #### C VDTBH ####[facility] [address] [place] [id number] Gonzalez Creatine kinase [Enzymatic a ctivity/volume] in Serum or PlasmaOrdered By: Carlton Mtz on 11-16-2021 CK [Catalytic activity/Vol] 286 U/L 22-269 [facility] D-DIMERon 11-16-2021 D-DIMER 2.02 mg/L FEU Critically high <=0.59 [facility] Comment on above: Performed By: #### D DIM ####[facility] [address] [place], [place] [address]HvLucia Gonzalez D-DIMER COMMENTS SEE BELOW Normal [facility] Comment on above: Result Comment: Incr [...] and generalized hospitalization. Performed By: #### D [facility] ####[facility] [address] [place], [place] [address]WxLucia Marlin Gonzalez Determination of appearance of body fluidOrdered By: Carlton Mtz on 11-16-2021 Appearance (Body fld) Cloudy [facility] Comment on above: The reference interv al and other method performance specifications have not been established for this body fluid. The test result must be integrated into the clinical context for interpretation. Direct bilirubin measurement Ordered By: Carlton Mtz on 11-16-2021 Bilirubin.direct [Mass/Vol] 0.1 mg/dL 0.0-0.4 [facility] Erythrocytes [#/volume] in P leural fluid by Automated countOrdered By: Carlton Mtz on 11-16-2021 RBC Auto (Pleur fld) [#/Vol] See comment [facility] Comment on above: Unable to accurately quantitiate cells due to clotting, clumping, debris etc. The reference interval and other method performance specifications have not been established for this body fluid. The test result must be integrated into the clinical context for interpretation. Evaluation of color of body fluidOrdered By: Carlton Mtz on 11-16-2021 Color (Body fld) Yellow [facility] Comment on above: The reference interv al and other method performance specifications have not been established for this body fluid. The test result must be integrated into the clinical context for interpretation. Globulin Calc (S) [Mass/Vol] Ordered By: Carlton Mtz on 11-16-2021 Globulin (S) [Mass/Vol] 3.1 g/dL [facility] Glucose mean value [Mass/vol ume] in Blood Estimated from glycated hemoglobinOrdered By: Carlton Mtz on 11-16-2021 Average glucose Estimated from glycated hemoglobin (Bld) [Mass/Vol] 160 mg/dL [facility] Hemoglobin A1c percentageOrd ered By: Carlton Mtz on 11-16-2021 HbA1c (Bld) [Mass fraction] 7.2 % 4.3-5.6 [facility] Comment on above: Increased risk for d iabetes: 5.7 - 6.4diabetes: >6.4glycemic control for adults with diabetes: <7.0 Laboratory - Chemistry and C hemistry - challengeOrdered By: Carlton Mtz on 11-16-2021 Natriuretic peptide B (Bld) [Mass/Vol] 1064.0 pg/mL 5-100 [facility] Laboratory - CoagulationOrde red By: Carlton Mtz on 11-16-2021 PT Coag (PPP) [Time] 14.2 s 9.0-12.9 [facility] Lactate dehydrogenase measur ement (enzymatic activity/volume)Ordered By: Carlton Mtz on 11-16-2021 LDH (Unsp spec) [Catalytic activity/Vol] 80 [IU]/mL [facility] Comment on above: No reference range e stablished Manual body fluid eosinophil s/100 leukocytesOrdered By: Carlton Mtz on 11-16-2021 Eosinophils/100 WBC Manual cnt (Body fld) 0 /100{WBC} 0-3 [facility] Manual body fluid lymphocyte s/100 leukocytesOrdered By: Carlton Mtz on 11-16-2021 Lymphocytes/100 WBC Manual cnt (Body fld) 40 % [facility] Comment on above: The reference interv al and other method performance specifications have not been established for this body fluid. The test result must be integrated into the clinical context for interpretation. Neutrophils/100 WBC Manual c nt (Body fld)Ordered By: Carlton Mtz on 11-16-2021 Neutrophils/100 WBC (Body fld) 20 % [facility] Comment on above: The reference interv al and other method performance specifications have not been established for this body fluid. The test result must be integrated into the clinical context for interpretation. PROF CHEM 8 (BAS METB)on Anion gap [Moles/Vol] 14.8 mmol/L Normal [facility] Comment on above: Performed By: #### C GISELLE, BMP ####[facility] [address]vet[address] [place] [address]Dr. Marlin Gonzalez Calcium [Mass/Vol] 9.3 mg/dL Normal 8.5-10.1 [facility] Comment on above: Performed By: #### Tara MCCARTHY, BMP ####[facility] [address] [place], [place] [address]Dr. Marlin Gonzalez Chloride [Moles/Vol] 98 mmol/L Normal 98-107 [facility] Comment on above: Performed By: #### Tara MCCARTHY, BMP ####[facility] [address]qkm[address] [place], [place] [address]Dr. Marlin Gonzalez CO2 [Moles/Vol] 24.8 mmol/L Normal 21.0-32.0 [facility] Comment on above: Performed By: #### Tara MCCARTHY, BMP ####[facility] [address] [place], [place] [address]Dr. Marlin Gonzalez Creatinine [Mass/Vol] 3.67 mg/dL Critically high 0.55-1.02 [facility] Comment on above: Performed By: #### Tara MCCARTHY, BMP ####[facility] Egbjxusslm[address] [place], [place] [address]Dr. Marlin Gonzalez EGFR-AF ARGENTINE 15 mL/min/1.73m2 Critically low >=60 [facility] Comment on above: Performed By: #### Tara MCCARTHY, BMP ####[facility] Ptnykw[address]pt[address] [place], [place] [address]Dr. Marlin Gonzalez EGFR-NON AF ARGENTINE 12 mL/min/1.73m2 Critically low >=60 [facility] Comment on above: Performed By: #### Tara MCCARTHY, BMP ####[facility] F[address]ryrvs[address] [place] [address]Dr. Marlin Gonzalez Glucose [Mass/Vol] 178 mg/dL Critically high 74-106 [facility] Comment on above: Performed By: #### Tara MCCARTHY, BMP ####[facility] Gvxxyziaud[address] [place], [place] [address]Dr. Marlin Gonzalez Potassium [Moles/Vol] 4.6 mmol/L Normal 3.5-5.1 [facility] Comment on above: Performed By: #### C SHARI, BMP ####[facility] [address]bfwcjm[address] [place], [place] [address]Dr. Marlin Gonzalez Sodium [Moles/Vol] 133 mmol/L Critically low 136-145 [facility] Comment on above: Performed By: #### C SHARI, BMP ####[facility] Kyvdoebori[address] [place], [place] [address]Dr. Marlin Gonzalez Urea nitrogen [Mass/Vol] 85.0 mg/dL Critically high 7.0-18.0 [facility] Comment on above: Performed By: #### C SHARI, BMP ####[facility] [address]xy[address] [place], [place] [address]Dr. Marlin Gonzalez Urea nitrogen/Creatinine [Mass ratio] 23.2 mg/mg Normal [facility] Comment on above: Performed By: #### C SHARI, BMP ####[facility] [address]oxb[address]rk[address] [place], [place] [address]Dr. Marlin Gonzalez PROTIMEon 11-16-2021 INR Coag (PPP) [Relative time] 1.06 {INR} Normal [facility] Comment on above: Performed By: #### P T, PTT ####[facility] Em[address]mz[address] [place], [place] [address]Dr. Marlin Gonzalez INR GUIDELINES SEE BELOW Normal [facility] Comment on above: Result Comment: WALI RED INR: 2.0 - 3.0 CONDITIONS NOT LISTED BELOW 2.5 - 3.5 FOR PROSTHETIC HEART VALVE REPLACEMENT 2.5 - 3.5 RECURRENT THROMBOSIS Performed By: #### P T, PTT ####[facility] [address] [place], [place] [address]Dr. Marlin Gonzalez PT Coag (PPP) [Time] 11.4 s Normal 9.0-11.6 [facility] Comment on above: Performed By: #### P T, PTT ####[facility] Z[address]itjgnj[address] [place], [place] [address]Dr. Marlin Gonzalez PTTon 11-16-2021 aPTT Coag (Bld) [Time] 30.5 s Normal 22.3-36.2 [facility] Comment on above: Performed By: #### P T, PTT ####[facility] Tiqmsmsrzu[address] [place] [address]DrLucia Marlin Gonzalez Platelet poor plasma interna tional normalized ratio (INR) by coagulation assay (relatOrdered By: Carlton Mtz on 11-16-2021 INR Coag (PPP) [Relative time] 1.3 {INR} [facility] Comment on above: INR Therapeutic Rang e [...] on 11-16-2021 Protein [Mass/Vol] 5.7 g/dL 6.1-7.9 [facility] Serum or plasma alanine iqbal otransferase measurement without P-5'-P (enzymatic activiOrdered By: Carlton Mtz on 11-16-2021 ALT No additional P-5'-P [Catalytic activity/Vol] 37 U/L [facility] Serum or plasma albumin/glob ulin mass ratioOrdered By: Carlton Mtz on 11-16-2021 Albumin/Globulin [Mass ratio] 0.8 {ratio} [facility] Serum or plasma alkaline fidel sphatase measurement (enzymatic activity/volume)Ordered By: Carlton Mtz on 11-16-2021 ALP [Catalytic activity/Vol] 85 U/L 32-92 [facility] Serum or plasma aspartate am inotransferase measurement (enzymatic activity/volume)Ordered By: Carlton Mtz on 11-16-2021 AST [Catalytic activity/Vol] 34 U/L [facility] Serum or plasma creatine kin ase MB (CKMB)/total creatine kinase (CK) ratio by calculaOrdered By: Carlton Mtz on 11-16-2021 CK.MB Calc [Catalytic fraction] 4.5 % 0.00-2.50 [facility] Serum or plasma creatine kin ase MB measurement (mass/volume)Ordered By: Carlton Mtz on 11-16-2021 CK.MB [Mass/Vol] 13.0 ng/mL 0.6-6.3 [facility] Serum or plasma non-glucuron idated bilirubin measurement (mass/volume)Ordered By: Carlton Mtz on 11-16-2021 Bilirubin.indirect [Mass/Vol] 0.4 mg/dL [facility] Serum or plasma total biliru bin measurement (mass/volume)Ordered By: Carlton Mtz on 11-16-2021 Bilirubin [Mass/Vol] 0.5 mg/dL 0.3-1.2 [facility] XR CHEST 1 Von 11-16-2021 XR CHEST 1 V Normal [facility] CBC AUTO DIFFon 11-12-2021 BASO # 0.0 103/ul Normal 0.0-0.1 [facility] Comment on above: Performed By: #### C BC ####[facility] [address] [place] [address]Dr. Marlin Gonzalez Basophils/100 WBC (Bld) 0.5 % Normal 0.2-2.0 [facility] Comment on above: Performed By: #### C BC ####[facility] [address]wzu[address] [place] [address]Dr. Marlin Gonzalez EO # 0.4 103/ul Normal 0.0-0.7 [facility] Comment on above: Performed By: #### C BC ####[facility] Y[address]stqiavg[address] [place] [address]Dr. Marlin Gonzalez Eosinophils/100 WBC (Bld) 6.2 % Normal 0.9-7.0 [facility] Comment on above: Performed By: #### C BC ####[facility] Z[address]taqjnz[address] [place] [address]Dr. Marlin Gonzalez Erythrocyte distribution width (RBC) [Ratio] 14.8 % Normal 11.0-15.0 [facility] Comment on above: Performed By: #### C BC ####[facility] Sdqdjxkxfk[address] [place] [address]Dr. Marlin Gonzalez Hematocrit (Bld) [Volume fraction] 26.7 % Critically low 36.0-48.0 [facility] Comment on above: Performed By: #### C BC ####[facility] Bsorrwkycc[address] [place] [address]Dr. Katherinearmando Gonzalez Hemoglobin (Bld) [Mass/Vol] 8.4 g/dL Critically low 12.0-16.0 [facility] Comment on above: Performed By: #### C BC ####[facility] T[address]lr[address]bwca[address] [place], [place] [address]Dr. Marlin Gonzalez IG # 0.02 10e3/ul Normal 0.00-0.03 [facility] Comment on above: Performed By: #### C BC ####[facility] G[address]ojdanv[address] [place], [place] [address]Dr. Marlin Gonzalez IG % 0.3 % Normal 0.0-0.5 [facility] Comment on above: Performed By: #### C BC ####[facility] G[address]zdzlojt[address] [place], [place] [address]Dr. Katherinearmando Gonzalez LYMPH # 1.3 103/ul Normal 1.2-3.8 [facility] Comment on above: Performed By: #### C BC ####[facility] [address]hlvixf[address] [place], [place] [address]Dr. Marlin Gonzalez Lymphocytes/100 WBC (Bld) 21.2 % Normal 20.5-60.0 [facility] Comment on above: Performed By: #### C BC ####[facility] [address]zmxca[address] [place], [place] [address]Dr. Marlin Gonzalez MANUAL DIFF REQ NO Normal [facility] Comment on above: Performed By: #### C BC ####[facility] [address]mh[address]vbt[address] [place], [place] [address]Dr. Marlin Gonzalez MCH (RBC) [Entitic mass] 29.7 pg Normal 26.7-34.0 [facility] Comment on above: Performed By: #### C BC ####[facility] [address]ocxtjdk[address] [place] [id number]. Marlin Gonzalez MCHC (RBC) [Mass/Vol] 31.5 g/dL Normal 29.9-35.2 [facility] Comment on above: Performed By: #### C BC ####[facility] E[address]bvvsgu[address] [place] [id number]. Katherinearmando Gonzalez MCV (RBC) [Entitic vol] 94.3 fL Normal 81.0-99.0 [facility] Comment on above: Performed By: #### C BC ####[facility] [address]jfnulgod[address] [place], [place] [address]Dr. Marlin Gonzalez MONO # 0.8 103/ul Normal 0.3-0.8 [facility] Comment on above: Performed By: #### C BC ####[facility] M[address] [place], [place] [address]Dr. Marlin Gonzalez Monocytes/100 WBC (Bld) 13.1 % Critically high 1.7-12. 0 [facility] Comment on above: Performed By: #### C BC ####[facility] Feqxierutm[address] [place], [place] [id number]. Marlin Gonzalez NEUT # 3.6 103/ul Normal 1.4-6.5 [facility] Comment on above: Performed By: #### C BC ####[facility] Nruxwowcuj[address] [place], [place] [address]Dr. Marlin Gonzalez Neutrophils/100 WBC (Bld) 58.7 % Normal 43.0-75.0 [facility] Comment on above: Performed By: #### C BC ####[facility] Zytvlbqssk[address] [place], [place] [address]Dr. Marlin Gonzalez Platelet mean volume (Bld) [Entitic vol] 9.6 fL Normal 9.5-13.5 [facility] Comment on above: Performed By: #### C BC ####[facility] Izlsgxnlml8[address] [place], [place] [address]Dr. Marlin Gonzalez PLT 274 103/ul Normal 150-450 [facility] Comment on above: Performed By: #### C BC ####[facility] Fjfqtzdmik37[address] [place] [address]Dr. Katherinearmando Carlos RBC 2.83 106/ul Critically low 4.20-5.40 [facility] Comment on above: Performed By: #### C BC ####[facility] Zrwexealej3797 [place] [address]Dr. Marlin Gonzalez WBC 6.1 103/ul Normal 4.0-11.0 [facility] Comment on above: Performed By: #### C BC ####[facility] Klscbzxcin7[address] [place], [place] [address]Dr. Marlin Gonzalez PH, BODY FLUIDon 11-12-2021 pH, Body Fluid 7.6 Normal Not Estab. [facility] Comment on above: Result Comment: The reference interval(s) and other method performance specificationshave not been established for this body fluid. The test result must beintegrated into the clinical context for interpretation. Performed By: #### B DYFLPH ####[facility] Zqkwbygcsa[address] [place], [place] [address]Dr. Marlin Gonzalez POINT OF CARE GLUCOSEon 10-0 Glucose [Mass/Vol] 245 mg/dL Critically high 74-106 [facility] Comment on above: Performed By: #### P OCGLUC ####[facility] Ugandnnako427[address] [place], [place] [address]Dr. Marlin Gonzalez PROF CHEM 8 (BAS METB)on Anion gap [Moles/Vol] 13.4 mmol/L Normal [facility] Comment on above: Performed By: #### B MP ####[facility] Xsppgefdbq64[address] [place], [place] [address]Dr. Marlin Gonzalez Calcium [Mass/Vol] 8.4 mg/dL Critically low 8.5-10.1 [facility] Comment on above: Performed By: #### B MP ####[facility] Wmcoujsteg[address] [place], [place] [address]Dr. Marlin Gonzalez Chloride [Moles/Vol] 101 mmol/L Normal 98-107 [facility] Comment on above: Performed By: #### B MP ####[facility] Qlmlurkzae5551 [place] [address]Dr. Marlin Gonzalez CO2 [Moles/Vol] 26.2 mmol/L Normal 21.0-32.0 [facility] Comment on above: Performed By: #### B MP ####[facility] Dcsrkkmeyv3303 [place] [address]Dr. Marlin Gonzalez Creatinine [Mass/Vol] 2.87 mg/dL Critically high 0.55-1.02 [facility] Comment on above: Performed By: #### B MP ####[facility] Ncqtdzztwt6909 [place] [address]Dr. Marlin Gonzalez EGFR-AF ARGENTINE 19 mL/min/1.73m2 Critically low >=60 [facility] Comment on above: Performed By: #### B MP ####[facility] Wydszqxgrr78[address] [place], [place] [address]Dr. Marlin Carlos EGFR-NON AF ARGENTINE 16 mL/min/1.73m2 Critically low >=60 [facility] Comment on above: Performed By: #### B MP ####[facility] Ayoomqnvwj220[address] [place], [place] [address]Dr. Marlin Gonzalez Glucose [Mass/Vol] 137 mg/dL Critically high 74-106 [facility] Comment on above: Performed By: #### B MP ####[facility] Tonjypwnpg95[address] [place], [place] [address]Dr. Marlin Gonzalez Potassium [Moles/Vol] 3.6 mmol/L Normal 3.5-5.1 [facility] Comment on above: Performed By: #### B MP ####[facility] Obmybmpksh52[address] [place], [place] [address]Dr. Marlin Gonzalez Sodium [Moles/Vol] 137 mmol/L Normal 136-145 [facility] Comment on above: Performed By: #### B MP ####[facility] Pbyqtdzzrm59[address] [place], [place] [address]Dr. Marlin Gonzalez Urea nitrogen [Mass/Vol] 73.0 mg/dL Critically high 7.0-18.0 [facility] Comment on above: Performed By: #### B MP ####[facility] Ulpuyudcpc1496 [place] [id number]. Marlin Gonzalez Urea nitrogen/Creatinine [Mass ratio] 25.4 mg/mg Normal [facility] Comment on above: Performed By: #### B MP ####[facility] Pixtqnpysr0412 [place] [id number]. Marlin Carlos CBC AUTO DIFFon 11-11-2021 BASO # 0.0 103/ul Normal 0.0-0.1 [facility] Comment on above: Performed By: #### C BC ####[facility] Avotaeyayt337[address] [place], [place] [address]Dr. Katherinearmando Gonzalez Basophils/100 WBC (Bld) 0.3 % Normal 0.2-2.0 [facility] Comment on above: Performed By: #### C BC ####[facility] Ciddrdlqgt[address] [place], [place] [address]Dr. Katherinearmando Carlos EO # 0.4 103/ul Normal 0.0-0.7 [facility] Comment on above: Performed By: #### C BC ####[facility] Yikyubusua696[address] [place], [place] [address]Dr. Marlin Carlos Eosinophils/100 WBC (Bld) 5.5 % Normal 0.9-7.0 [facility] Comment on above: Performed By: #### C BC ####[facility] Pdkwuqubrw[address] [place], [place] [address]Dr. Marlin Carlos Erythrocyte distribution width (RBC) [Ratio] 14.6 % Normal 11.0-15.0 [facility] Comment on above: Performed By: #### C BC ####[facility] Ixwgaopkpl90[address] [place], [place] [address]Dr. Marlin Gonzalez Hematocrit (Bld) [Volume fraction] 26.4 % Critically low 36.0-48.0 [facility] Comment on above: Performed By: #### C BC ####[facility] Qgsakieqdh017[address] [place], [place] [address]Dr. Marlin Carlos Hemoglobin (Bld) [Mass/Vol] 8.4 g/dL Critically low 12.0-16.0 [facility] Comment on above: Performed By: #### C BC ####[facility] Jrxhdcnayr5384 [place] [address]DrLucia Murphyarmando Carlos IG # 0.03 10e3/ul Normal 0.00-0.03 [facility] Comment on above: Performed By: #### C BC ####[facility] Syoggnunld6905 [place] [address]DrLucia Gonzalez IG % 0.4 % Normal 0.0-0.5 [facility] Comment on above: Performed By: #### C BC ####[facility] Jlnqsvnraw608[address] [place], [place] [address]DrLucia Gonzalez LYMPH # 1.2 103/ul Normal 1.2-3.8 [facility] Comment on above: Performed By: #### C BC ####[facility] Rlbbvcxdww13[address] [place], [place] [address]DrLucia Gonzalez Lymphocytes/100 WBC (Bld) 16.5 % Critically low 20.5-60.0 [facility] Comment on above: Performed By: #### C BC ####[facility] Szomnycdhu[address] [place], [place] [address]DrLucia Gonzalez MANUAL DIFF REQ NO Normal [facility] Comment on above: Performed By: #### C BC ####[facility] Nilqolbooa058[address] [place], [place] [address]DrLucia Gonzalez MCH (RBC) [Entitic mass] 30.0 pg Normal 26.7-34.0 [facility] Comment on above: Performed By: #### C BC ####[facility] Zagivzsbjw[address] [place], [place] [address]DrLucia Gonzalez MCHC (RBC) [Mass/Vol] 31.8 g/dL Normal 29.9-35.2 [facility] Comment on above: Performed By: #### C BC ####[facility] Yejvysgixu7009 [place] [address]DrLucia Gonzalez MCV (RBC) [Entitic vol] 94.3 fL Normal 81.0-99.0 [facility] Comment on above: Performed By: #### C BC ####[facility] Ihtqzxswok7122 [place] [address]Dr. Marlin Gonzalez MONO # 0.8 103/ul Normal 0.3-0.8 [facility] Comment on above: Performed By: #### C BC ####[facility] Dilxejsegn9111 [place] [id number]. Marlin Gonzalez Monocytes/100 WBC (Bld) 11.4 % Normal 1.7-12.0 [facility] Comment on above: Performed By: #### C BC ####[facility] Rxfichklod1986 [place] [address]Dr. Marlin Gonzalez NEUT # 4.7 103/ul Normal 1.4-6.5 [facility] Comment on above: Performed By: #### C BC ####[facility] Otugmyclob4816 [place] [address]Dr. Marlin Gonzalez Neutrophils/100 WBC (Bld) 65.9 % Normal 43.0-75.0 [facility] Comment on above: Performed By: #### C BC ####[facility] Sslptgaclh7502 [place] [address]Dr. Marlin Gonzalez Platelet mean volume (Bld) [Entitic vol] 9.7 fL Normal 9.5-13.5 [facility] Comment on above: Performed By: #### C BC ####[facility] Xnurjjcxps5503 [place] [address]Dr. Marlin Gonzalez PLT 254 103/ul Normal 150-450 [facility] Comment on above: Performed By: #### C BC ####[facility] Yuypmdndxh6468 [place] [id number]. Marlin Gonzalez RBC 2.80 106/ul Critically low 4.20-5.40 [facility] Comment on above: Performed By: #### C BC ####[facility] Fpiszxsirt8636 [place] [address]Dr. Marlin Gonzalez WBC 7.1 103/ul Normal 4.0-11.0 [facility] Comment on above: Performed By: #### C BC ####[facility] Pxxenktica4343 [place] [address]Dr. Marlin Gonzalez POINT OF CARE GLUCOSEon Glucose [Mass/Vol] 137 mg/dL Critically high 74-106 [facility] Comment on above: Performed By: #### P OCGLUC ####[facility] Ndshnpzgkl7933 [place] [address]Dr. Katherinearmando Gonzalez Glucose [Mass/Vol] 144 mg/dL Critically high 74-106 [facility] Comment on above: Performed By: #### P OCGLUC ####[facility] Eebmknryyy[address] [place], [place] [address]Dr. Marlin Gonzalez Glucose [Mass/Vol] 217 mg/dL Critically high -106 [facility] Comment on above: Performed By: #### P OCGLUC ####[facility] Ckgcuowjhb20[address] [place], [place] [address]Dr. Marlin Gonzalez PROF CHEM 8 (BAS METB)on Anion gap [Moles/Vol] 12.0 mmol/L Normal [facility] Comment on above: Performed By: #### B MP ####[facility] Gnvijnyssu45[address] [place], [place] [address]Dr. Marlin Gonzalez Calcium [Mass/Vol] 8.5 mg/dL Normal 8.5-10.1 [facility] Comment on above: Performed By: #### B MP ####[facility] Rzpunhwchf99[address] [place], [place] [address]Dr. Marlin Gonzalez Chloride [Moles/Vol] 100 mmol/L Normal 98-107 [facility] Comment on above: Performed By: #### B MP ####[facility] Bhllvjqscd1045[address] [place], [place] [address]Dr. Marlin Gonzalez CO2 [Moles/Vol] 25.5 mmol/L Normal 21.0-32.0 [facility] Comment on above: Performed By: #### B MP ####[facility] Umpecfliss0732[address] [place], [place] [address]Dr. Marlin Gonzalez Creatinine [Mass/Vol] 2.94 mg/dL Critically high 0.55-1.02 [facility] Comment on above: Performed By: #### B MP ####[facility] Yhirsgngms8538 [place] [address]Dr. Marlin Gonzalez EGFR-AF ARGENTINE 19 mL/min/1.73m2 Critically low >=60 [facility] Comment on above: Performed By: #### B MP ####[facility] Yrhqgnbqpi15[address] [place], [place] [address]Dr. Marlin Gonzalez EGFR-NON AF ARGENTINE 16 mL/min/1.73m2 Critically low >=60 [facility] Comment on above: Performed By: #### B MP ####[facility] Hdobgldaio5517[address] [place], [place] [address]Dr. Marlin Gonzalez Glucose [Mass/Vol] 162 mg/dL Critically high 74-106 [facility] Comment on above: Performed By: #### B MP ####[facility] Jyuemypocn2226[address] [place], [place] [address]Dr. Marlin Gonzalez Potassium [Moles/Vol] 3.5 mmol/L Normal 3.5-5.1 [facility] Comment on above: Performed By: #### B MP ####[facility] Edagyojvmy350[address] [place], [place] [address]Dr. Marlin Gonzalez Sodium [Moles/Vol] 134 mmol/L Critically low 136-145 [facility] Comment on above: Performed By: #### B MP ####[facility] Lcgcgwoctd2523[address] [place], [place] [address]Dr. Marlin Gonzalez Urea nitrogen [Mass/Vol] 78.0 mg/dL Critically high 7.0-18.0 [facility] Comment on above: Performed By: #### B MP ####[facility] Lupscccpmk368[address] [place], [place] [address]Dr. Marlin Gonzalez Urea nitrogen/Creatinine [Mass ratio] 26.5 mg/mg Normal [facility] Comment on above: Performed By: #### B MP ####[facility] Towyqnfxco1663[address] [place], [place] [address]Dr. Marlin Gonzalez CBC AUTO DIFFon 11-10-2021 BASO # 0.0 103/ul Normal 0.0-0.1 [facility] Comment on above: Performed By: #### C BC ####[facility] Bcirrfdezt569[address] [place], [place] [address]Dr. Marlin Gonzalez Basophils/100 WBC (Bld) 0.4 % Normal 0.2-2.0 [facility] Comment on above: Performed By: #### C BC ####[facility] Sxljiigpnm70[address] [place], [place] [address]Dr. Marlin Gonzalez EO # 0.4 103/ul Normal 0.0-0.7 [facility] Comment on above: Performed By: #### C BC ####[facility] Ymnsgcocbb924[address] [place], [place] [address]Dr. Marlin Gonzalez Eosinophils/100 WBC (Bld) 5.3 % Normal 0.9-7.0 [facility] Comment on above: Performed By: #### C BC ####[facility] Iqnaeromtv28[address] [place], [place] [address]Dr. Marlin Gonzalez Erythrocyte distribution width (RBC) [Ratio] 14.5 % Normal 11.0-15.0 [facility] Comment on above: Performed By: #### C BC ####[facility] Bovhmtxhbn1153[address] [place], [place] [address]Dr. Marlin Gonzalez Hematocrit (Bld) [Volume fraction] 26.9 % Critically low 36.0-48.0 [facility] Comment on above: Performed By: #### C BC ####[facility] Matztbxpak7513[address] [place], [place] [address]Dr. Marlin Gonzalez Hemoglobin (Bld) [Mass/Vol] 8.6 g/dL Critically low 12.0-16.0 [facility] Comment on above: Performed By: #### C BC ####[facility] Bjdfvqasrf0813[address] [place], [place] [address]Dr. Katherinearmando Gonzalez IG # 0.03 10e3/ul Normal 0.00-0.03 [facility] Comment on above: Performed By: #### C BC ####[facility] Devekmwwjk0904 [place] [address]Dr. Katherinearmando Gonzalez IG % 0.4 % Normal 0.0-0.5 [facility] Comment on above: Performed By: #### C BC ####[facility] Fbrldnbipr4684 [place] [address]Dr. Marlin Gonzalez LYMPH # 1.2 103/ul Normal 1.2-3.8 [facility] Comment on above: Performed By: #### C BC ####[facility] Iuuesfsqwn3840 [place] [address]Dr. Katherinearmando Gonzalez Lymphocytes/100 WBC (Bld) 15.0 % Critically low 20.5-60.0 [facility] Comment on above: Performed By: #### C BC ####[facility] Cifhuypfhw7234 [place] [address]Dr. Marlin Gonzalez MANUAL DIFF REQ NO Normal [facility] Comment on above: Performed By: #### C BC ####[facility] Mrahaxvlqa7715 [place] [address]Dr. Marlin Carlos MCH (RBC) [Entitic mass] 30.2 pg Normal 26.7-34.0 [facility] Comment on above: Performed By: #### C BC ####[facility] Mbilulwhte0486[address] [place], [place] [address]Dr. Marlin Carlos MCHC (RBC) [Mass/Vol] 32.0 g/dL Normal 29.9-35.2 [facility] Comment on above: Performed By: #### C BC ####[facility] Iytwnfosof2844 [place] [address]Dr. Marlin Gonzalez MCV (RBC) [Entitic vol] 94.4 fL Normal 81.0-99.0 [facility] Comment on above: Performed By: #### C BC ####[facility] Qgapqxitty25[address] [place], [place] [address]DrLucia Gonzalez MONO # 0.6 103/ul Normal 0.3-0.8 [facility] Comment on above: Performed By: #### C BC ####[facility] Rdzclsjovx15[address] [place], [place] [address]Dr. Marlin Gonzalez Monocytes/100 WBC (Bld) 8.3 % Normal 1.7-12.0 [facility] Comment on above: Performed By: #### C BC ####[facility] Zgqzlmcxxd3712 [place] [address]Dr. Marlin Gonzalez NEUT # 5.4 103/ul Normal 1.4-6.5 [facility] Comment on above: Performed By: #### C BC ####[facility] Vaidqywjxn0007 [place] [address]Dr. Marlin Gonzalez Neutrophils/100 WBC (Bld) 70.6 % Normal 43.0-75.0 [facility] Comment on above: Performed By: #### C BC ####[facility] Xvvxddkqzf7385 [place] [address]Dr. Marlin Gonzalez Platelet mean volume (Bld) [Entitic vol] 9.6 fL Normal 9.5-13.5 [facility] Comment on above: Performed By: #### C BC ####[facility] Mgpskdddzl8681 [place] [address]Dr. Marlin Gonzalez PLT 239 103/ul Normal 150-450 [facility] Comment on above: Performed By: #### C BC ####[facility] Dzgyhiattu2260 [place] [address]Dr. Marlin Gonzalez RBC 2.85 106/ul Critically low 4.20-5.40 [facility] Comment on above: Performed By: #### C BC ####[facility] Bisdxulote3821 [place] [address]Dr. Marlin Gonzalez WBC 7.7 103/ul Normal 4.0-11.0 [facility] Comment on above: Performed By: #### C BC ####[facility] Ljbmwytwai2182 [place] [address]Dr. Marlin Gonzalez POINT OF CARE GLUCOSEon 10-0 Glucose [Mass/Vol] 196 mg/dL Critically high 74-106 [facility] Comment on above: Performed By: #### P OCGLUC ####[facility] Jmjluxxhik7854 [place] [address]Dr. Marlin Gonzalez Glucose [Mass/Vol] 211 mg/dL Critically high 74-106 [facility] Comment on above: Performed By: #### P OCGLUC ####[facility] Ffesqqhfdp1990 [place] [address]Dr. Marlin Gonzalez Glucose [Mass/Vol] 235 mg/dL Critically high 74-106 [facility] Comment on above: Performed By: #### P OCGLUC ####[facility] Yfqpepedix5931 [place] [address]Dr. Katherinearmando Gonzalez PROF CHEM 8 (BAS METB)on Anion gap [Moles/Vol] 11.2 mmol/L Normal [facility] Comment on above: Performed By: #### B MP ####[facility] Unybsoyisd2610 [place] [address]Dr. Mariln Carlos Calcium [Mass/Vol] 8.2 mg/dL Critically low 8.5-10.1 [facility] Comment on above: Performed By: #### B MP ####[facility] Nwtsivaouw[address] [place], [place] [address]Dr. Marlin Gonzalez Chloride [Moles/Vol] 100 mmol/L Normal 98-107 [facility] Comment on above: Performed By: #### B MP ####[facility] Huulnpevaj[address] [place], [place] [address]Dr. Marlin Carlos CO2 [Moles/Vol] 26.4 mmol/L Normal 21.0-32.0 [facility] Comment on above: Performed By: #### B MP ####[facility] Gafjdfvzmp2168 [place] [address]Dr. Marlin Gonzalez Creatinine [Mass/Vol] 3.13 mg/dL Critically high 0.55-1.02 [facility] Comment on above: Performed By: #### B MP ####[facility] Bmpfikrokt[address] [place], [place] [address]Dr. Katherinearmando Carlos EGFR-AF ARGENTINE 18 mL/min/1.73m2 Critically low >=60 [facility] Comment on above: Performed By: #### B MP ####[facility] Hntlzdptir7071 [place] [id number]. Katherinearmando Carlos EGFR-NON AF ARGENTINE 15 mL/min/1.73m2 Critically low >=60 [facility] Comment on above: Performed By: #### B MP ####[facility] Ryzskmaooj9971 [place] [id number]. Marlin Gonzalez Glucose [Mass/Vol] 139 mg/dL Critically high 74-106 [facility] Comment on above: Performed By: #### B MP ####[facility] Ynxjgedgee2706 [place] [id number]. Marlin Gonzalez Potassium [Moles/Vol] 3.6 mmol/L Normal 3.5-5.1 [facility] Comment on above: Performed By: #### B MP ####[facility] Yhizqaxwkt0979 [place] [address]Dr. Marlin Gonzalez Sodium [Moles/Vol] 134 mmol/L Critically low 136-145 [facility] Comment on above: Performed By: #### B MP ####[facility] Agoohnaqxz6534 [place] [address]Dr. Marlin Gonzalez Urea nitrogen [Mass/Vol] 84.0 mg/dL Critically high 7.0-18.0 [facility] Comment on above: Performed By: #### B MP ####[facility] Psjtwkzibm0737 [place] [address]Dr. Marlin Gonzalez Urea nitrogen/Creatinine [Mass ratio] 26.8 mg/mg Normal [facility] Comment on above: Performed By: #### B MP ####[facility] [facility] Txtrkozzfa[address] [place], [place] [address]Dr. Marlin Gonzalez CBC AUTO DIFFon 11-09-2021 BASO # 0.0 103/ul Normal 0.0-0.1 [facility] Comment on above: Performed By: #### C BC ####[facility] Heupbmsdkd8[address] [place], [place] [address]Dr. Marlin Gonzalez Basophils/100 WBC (Bld) 0.2 % Normal 0.2-2.0 [facility] Comment on above: Performed By: #### C BC ####[facility] Epqaotlokc7926 [place] [id number]. Marlin Gonzalez EO # 0.5 103/ul Normal 0.0-0.7 [facility] Comment on above: Performed By: #### C BC ####[facility] Tnvwswfjkt3131 [place] [address]Dr. Marlin Gonzalez Eosinophils/100 WBC (Bld) 7.3 % Critically high 0.9-7.0 [facility] Comment on above: Performed By: #### C BC ####[facility] Suhzkwrsqu[address] [place], [place] [address]Dr. Marlin Gonzalez Erythrocyte distribution width (RBC) [Ratio] 14.5 % Normal 11.0-15.0 [facility] Comment on above: Performed By: #### C BC ####[facility] Leqxcutsrf9[address] [place], [place] [address]Dr. Marlin Gonzalez Hematocrit (Bld) [Volume fraction] 26.5 % Critically low 36.0-48.0 [facility] Comment on above: Performed By: #### C BC ####[facility] Esyigwibju[address] [place], [place] [address]Dr. Marlin Gonzalez Hemoglobin (Bld) [Mass/Vol] 8.3 g/dL Critically low 12.0-16.0 [facility] Comment on above: Performed By: #### C BC ####[facility] M[address]fnpukig[address] [place], [place] [address]Dr. Marlin Gonzalez IG # 0.02 10e3/ul Normal 0.00-0.03 [facility] Comment on above: Performed By: #### C BC ####[facility] Yxceyaardf[address] [place], [place] [address]Dr. Marlin Gonzalez IG % 0.3 % Normal 0.0-0.5 [facility] Comment on above: Performed By: #### C BC ####[facility] Dmoyhbzcwu[address] [place], [place] [address]Dr. Katherinearmando Gonzalez LYMPH # 1.1 103/ul Critically low 1.2-3.8 [facility] Comment on above: Performed By: #### C BC ####[facility] Tdxvppwofk8645 [place] [id number]. Katherinearmando Gonzalez Lymphocytes/100 WBC (Bld) 17.4 % Critically low 20.5-60.0 [facility] Comment on above: Performed By: #### C BC ####[facility] Xhddxguxtx2837 [place] [id number]. Marlin Gonzalez MANUAL DIFF REQ NO Normal [facility] Comment on above: Performed By: #### C BC ####[facility] Hfdszqdpyx9181 [place] [id number]. Marlin Gonzalez MCH (RBC) [Entitic mass] 29.5 pg Normal 26.7-34.0 [facility] Comment on above: Performed By: #### C BC ####[facility] Tiylaizcsr4506 [place] [address]Dr. Marlin Gonzalez MCHC (RBC) [Mass/Vol] 31.3 g/dL Normal 29.9-35.2 [facility] Comment on above: Performed By: #### C BC ####[facility] Qnddhzzvnp1677 [place] [id number]. Marlin Gonzalez MCV (RBC) [Entitic vol] 94.3 fL Normal 81.0-99.0 [facility] Comment on above: Performed By: #### C BC ####[facility] Wxlyvsgdil449[address] [place], [place] [address]Dr. Marlin Gonzalez MONO # 0.6 103/ul Normal 0.3-0.8 [facility] Comment on above: Performed By: #### C BC ####[facility] Nckpbwbvnn8600 [place] [id number]. Marlin Gonzalez Monocytes/100 WBC (Bld) 9.1 % Normal 1.7-12.0 [facility] Comment on above: Performed By: #### C BC ####[facility] Blzxqpeebv[address] [place], [place] [address]Dr. Marlin Gonzalez NEUT # 4.1 103/ul Normal 1.4-6.5 [facility] Comment on above: Performed By: #### C BC ####[facility] Xdbbpwnvpk5509 [place] [address]Dr. Marlin Gonzalez Neutrophils/100 WBC (Bld) 65.7 % Normal 43.0-75.0 [facility] Comment on above: Performed By: #### C BC ####[facility] Ttxxmrfcym7578 [place] [id number]. Marlin Gonzalez Platelet mean volume (Bld) [Entitic vol] 9.8 fL Normal 9.5-13.5 [facility] Comment on above: Performed By: #### C BC ####[facility] Qmwkijqzcc3030 [place] [address]Dr. Marlin Gonzalez PLT 209 103/ul Normal 150-450 [facility] Comment on above: Performed By: #### C BC ####[facility] Zepjdcbyav[address] [place], [place] [address]Dr. Marlin Gonzalez RBC 2.81 106/ul Critically low 4.20-5.40 [facility] Comment on above: Performed By: #### C BC ####[facility] O[address]qnxkxaso[address] [place], [place] [address]Dr. Marlin Gonzalez WBC 6.2 103/ul Normal 4.0-11.0 [facility] Comment on above: Performed By: #### C BC ####[facility] Qblhctffox[address] [place], [place] [address]Dr. Marlin Gonzalez CELL COUNT BODY FLUIDon 10-13 Clarity, Serous Clear Normal Clear [facility] Comment on above: Performed By: #### C CBFS ####[facility] Ngcddjqmei8945 [place] [id number]. Marlin Gonzalez Color, Serous Yellow Normal [facility] Comment on above: Result Comment: [place] rless to Pale Yellow/Straw Performed By: #### C CBFS ####[facility] Thshcalkeu6966 [place] [id number]. Marlin Gonzalez Comments: Normal [facility] Comment on above: Performed By: #### C CBFS ####[facility] Rgibqzdptf5116 [place] [phone]. Marlin Gonzalez Eosinophils/100 WBC (Bld) 2 % Normal Not Estab. [facility] Comment on above: Performed By: #### C CBFS ####[facility] Cfucvcudkv4096 [place] [phone]. Marlin Gonzalez Lining Cells, Serous Normal [facility] Comment on above: Performed By: #### C CBFS ####[facility] Erhrxnohkz4921 [place] [phone]. Marlin Gonzalez Lymphocytes/100 WBC (Bld) 26 % Normal Not Estab. [facility] Comment on above: Performed By: #### C CBFS ####[facility] Fyhgxlhavm1525 [place] [phone]. Marlin Gonzalez Macrophages, Serous 40 % Normal Not Estab. [facility] Comment on above: Performed By: #### C CBFS ####[facility] Fsmtqetuus6506 [place] [phone]. Marlin Gonzalez Nucleated Cells, Serous 116 /mm3 Normal 0-499 [facility] Comment on above: Result Comment: Pleu ral Fluid, with <1000 Nucleated cells/uL has been associated with transudates while >1000 uL may be seen in exudates. Performed By: #### C CBFS ####[facility] Suvlkygkni5105 [place] [id number]. Marlin Gonzalez Polys, Serous 32 % Critically high 0-24 [facility] Comment on above: Performed By: #### C CBFS ####[facility] Jpxcveyoqp6938 [place] [phone]. Marlin Gonzalez RBC, Serous Rare Normal Not Estab. [facility] Comment on above: Performed By: #### C CBFS ####[facility] Ogbsobjkke0138 [place] [phone]. Marlin Gonzalez GLUCOSE BODYFLUIDon 11-10-19 22 Glucose, Body Fluid 109 mg/dL Normal [facility] Comment on above: Result Comment: ____ : [...] Children 2007. Ninth edition (V9.1) [facility]; [place]: August 2008.The reference intervals and other method performance specificationshave not been established for this test. The test result should beintegrated into the clinical context for interpretation. Performed By: #### B FGLUC ####[address] Marlin Gonzalez LACTIC ACID DEHYDROGENASE (L D), BODY FLUon 11-09-2021 LD, Body Fluid 127 IU/L Normal [facility] Comment on above: Result Comment: ____ [...] : <240 : : : : . Jennyfer Murphy V. Reference Intervals for Adults and Children 2008. Ninth Edition (V9.1) [employer], [facility]; [place]: August 2008.The reference intervals and other method performance specificationshave not been established for this test. The test result should beintegrated into the clinical context for interpretation. Performed By: #### L DHBF ####[facility] Cleuuwbflk[address] [place], [place] [address]Dr. Marlin Gonzalez PH, BODY FLUIDon 11-09-2021 pH, Body Fluid 7.4 Normal Not Estab. [facility] Comment on above: Result Comment: The reference interval(s) and other method performance specificationshave not been established for this body fluid. The test result must beintegrated into the clinical context for interpretation. Performed By: #### B DYFLPH ####[facility] Bmslvasqqh[address] [place], [place] [address]Dr. Katherinearmando Carlos POINT OF CARE GLUCOSEon 10-13 Glucose [Mass/Vol] 185 mg/dL Critically high 74-106 [facility] Comment on above: Performed By: #### P OCGLUC ####[facility] Ctmriggvml[address] [place], [place] [address]Dr. Marlin Gonzalez Glucose [Mass/Vol] 110 mg/dL Critically high 74-106 [facility] Comment on above: Performed By: #### P OCGLUC ####[facility] Ywyzkmuddn[address] [place], [place] [address]Dr. Marlin Gonzalez Glucose [Mass/Vol] 263 mg/dL Critically high 74-106 [facility] Comment on above: Performed By: #### P OCGLUC ####[facility] Bdhsaivghc6188 [place] [address]Dr. Marlin Gonzalez Glucose [Mass/Vol] 390 mg/dL Critically high 74-106 [facility] Comment on above: Performed By: #### P OCGLUC ####[facility] Yeddmggmix6180 [place] [address]Dr. Marlin Gonzalez PROF CHEM 8 (BAS METB)on Anion gap [Moles/Vol] 14.3 mmol/L Normal [facility] Comment on above: Performed By: #### B MP ####[facility] Vityglehta3752 [place] [address]Dr. Marlin Gonzalez Calcium [Mass/Vol] 8.2 mg/dL Critically low 8.5-10.1 [facility] Comment on above: Performed By: #### B MP ####[facility] Yslzlrydoe[address] [place], [place] [address]Dr. Marlin Gonzalez Chloride [Moles/Vol] 101 mmol/L Normal 98-107 [facility] Comment on above: Performed By: #### B MP ####[facility] Bilkknivvl8[address] [place], [place] [address]Dr. Katherinearmando Gonzalez CO2 [Moles/Vol] 24.4 mmol/L Normal 21.0-32.0 [facility] Comment on above: Performed By: #### B MP ####[facility] Zkuimrmkgg[address] [place], [place] [address]Dr. Katherinearmando Carlos Creatinine [Mass/Vol] 3.17 mg/dL Critically high 0.55-1.02 [facility] Comment on above: Performed By: #### B MP ####[facility] Egnrtupqzx[address] [place], [place] [address]Dr. Marlin Gonzalez EGFR-AF ARGENTINE 17 mL/min/1.73m2 Critically low >=60 [facility] Comment on above: Performed By: #### B MP ####[facility] Sqxsixltew[address] [place], [place] [address]Dr. Marlin Gonzalez EGFR-NON AF ARGENTINE 14 mL/min/1.73m2 Critically low >=60 [facility] Comment on above: Performed By: #### B MP ####[facility] Cwilaqlkbv0989 [place] [address]Dr. Marlin Gonzalez Glucose [Mass/Vol] 147 mg/dL Critically high 74-106 [facility] Comment on above: Performed By: #### B MP ####[facility] Snebeuprre9244 [place] [phone]. Marlin Gonzalez Potassium [Moles/Vol] 3.7 mmol/L Normal 3.5-5.1 [facility] Comment on above: Performed By: #### B MP ####[facility] Nhricfxgie8243 [place] [address]Dr. Marlin Gonzalez Sodium [Moles/Vol] 136 mmol/L Normal 136-145 [facility] Comment on above: Performed By: #### B MP ####[facility] Jxmubvttvb1854 [place] [address]Dr. Marlin Gonzalez Urea nitrogen [Mass/Vol] 92.0 mg/dL Critically high 7.0-18.0 [facility] Comment on above: Performed By: #### B MP ####[facility] Mdmmwrheso[address] [place], [place] [address]Dr. Marlin Gonzalez Urea nitrogen/Creatinine [Mass ratio] 29.0 mg/mg [facility] Comment on above: Performed By: #### B MP ####[facility] Uimwilzlyy9334 [place] [address]Dr. Marlin Gonzalez PROTEIN, TOTAL, BODY FLUIDon 11-09-2021 Protein, Body Fluid 2.5 g/dL Normal [facility] Comment on above: Result Comment: ____ : [...] - 0.9 : : : : . Jose Miguel W, Jennyfer V. Reference Intervals for Adults and Children 2008. Ninth Edition (V9.1) [employer], [facility]; [place]: August 2008.The method performance specifications have not been established forthis test in body fluid. The test result should be integrated intothe clinical context for interpretation. Performed By: #### T PBF ####[facility] Jjlsxaheno[address] [place], [place] [address]Dr. Marlin Gonzalez XR CHEST 1 Von 11-09-2021 XR CHEST 1 V Normal [facility] CBC AUTO DIFFon 11-08-2021 BASO # 0.0 103/ul Normal 0.0-0.1 [facility] Comment on above: Performed By: #### C BC ####[facility] Ytszpmdxtk[address] [place], [place] [address]Dr. Marlin Gonzalez Basophils/100 WBC (Bld) 0.3 % Normal 0.2-2.0 [facility] Comment on above: Performed By: #### C BC ####[facility] Sloyowfljj422[address] [place], [place] [address]Dr. Marlin Gonzalez EO # 0.4 103/ul Normal 0.0-0.7 [facility] Comment on above: Performed By: #### C BC ####[facility] Onobjyuvxh9[address] [place], [place] [address]Dr. Marlin Gonzalez Eosinophils/100 WBC (Bld) 5.8 % Normal 0.9-7.0 [facility] Comment on above: Performed By: #### C BC ####[facility] Ofpjbwdlmi8176 [place] [address]Dr. Marlin Gonzalez Erythrocyte distribution width (RBC) [Ratio] 14.5 % Normal 11.0-15.0 [facility] Comment on above: Performed By: #### C BC ####[facility] Sxehwayhcx4284 [place] [address]Dr. Marlin Gonzalez Hematocrit (Bld) [Volume fraction] 27.4 % Critically low 36.0-48.0 [facility] Comment on above: Performed By: #### C BC ####[facility] Gcmuipcoxr[address] [place], [place] [address]Dr. Marlin Gonzalez Hemoglobin (Bld) [Mass/Vol] 8.6 g/dL Critically low 12.0-16.0 [facility] Comment on above: Performed By: #### C BC ####[facility] Ohnkkuurnp3367[address] [place], [place] [address]DrLucia Marlin Gonzalez IG # 0.01 10e3/ul Normal 0.00-0.03 [facility] Comment on above: Performed By: #### C BC ####[facility] Suihuccioz40[address] [place], [place] [address]DrLucia Marlin Gonzalez IG % 0.1 % Normal 0.0-0.5 [facility] Comment on above: Performed By: #### C BC ####[facility] Wyvchjuche[address] [place], [place] [address]DrLucia Marlin Gonzalez LYMPH # 1.2 103/ul Normal 1.2-3.8 [facility] Comment on above: Performed By: #### C BC ####[facility] Vgmymlfmhw[address] [place], [place] [address]DrLucia Marlin Gonzalez Lymphocytes/100 WBC (Bld) 17.5 % Critically low 20.5-60.0 [facility] Comment on above: Performed By: #### C BC ####[facility] Yylrqqzuoq864[address] [place], [place] [address]DrLucia Marlin Gonzalez MANUAL DIFF REQ NO Normal [facility] Comment on above: Performed By: #### C BC ####[facility] Fhotdmovwc3570 [place] [id number]. Marlin Carlos MCH (RBC) [Entitic mass] 29.8 pg Normal 26.7-34.0 [facility] Comment on above: Performed By: #### C BC ####[facility] Pdttqvtapf1144 [place] [address]Dr. Marlin Carlos MCHC (RBC) [Mass/Vol] 31.4 g/dL Normal 29.9-35.2 [facility] Comment on above: Performed By: #### C BC ####[facility] Chhmbklafg1825 [place] [address]Dr. Katherinearmando Gonzalez MCV (RBC) [Entitic vol] 94.8 fL Normal 81.0-99.0 [facility] Comment on above: Performed By: #### C BC ####[facility] Wlewkneyhf788[address] [place], [place] [address]Dr. Marlin Gonzalez MONO # 0.7 103/ul Normal 0.3-0.8 [facility] Comment on above: Performed By: #### C BC ####[facility] Wlqerwknsy60[address] [place], [place] [address]Dr. Katherinearmando Gonzalez Monocytes/100 WBC (Bld) 11.0 % Normal 1.7-12.0 [facility] Comment on above: Performed By: #### C BC ####[facility] Gefzzvmivh[address] [place], [place] [address]Dr. Katherinearmando Gonzalez NEUT # 4.4 103/ul Normal 1.4-6.5 [facility] Comment on above: Performed By: #### C BC ####[facility] Oboxuvswbs[address] [place], [place] [address]DrLucia Gonzalez Neutrophils/100 WBC (Bld) 65.3 % Normal 43.0-75.0 [facility] Comment on above: Performed By: #### C BC ####[facility] Yfslrkthdg[address] [place], [place] [address]DrLucia Gonzalez Platelet mean volume (Bld) [Entitic vol] 9.8 fL Normal 9.5-13.5 [facility] Comment on above: Performed By: #### C BC ####[facility] Oerfpuqafb8969 [place] [address]Dr. Marlin Gonzalez PLT 183 103/ul Normal 150-450 [facility] Comment on above: Performed By: #### C BC ####[facility] Twdcrrglfu4430 [place] [id number]. Marlin Gonzalez RBC 2.89 106/ul Critically low 4.20-5.40 [facility] Comment on above: Performed By: #### C BC ####[facility] Jqrnpyykmd3564 [place] [id number]. Marlin Gonzalez WBC 6.7 103/ul Normal 4.0-11.0 [facility] Comment on above: Performed By: #### C BC ####[facility] Lfpgvcvsat9966 [place] [address]Dr. Marlin Gonzalez CULTURE STERILE BODY FLUIDon 11-08-2021 CULTURE STERILE BODY FLUID Culture Observations: NO GROWTH AT 72 HRS Normal [facility] Comment on above: Performed By: #### S TBFCX ####[facility] Jgicfkkciv[address] [place], [place] [address]Dr. Marlin Gonzalez CYTOLOGYon 11-08-2021 SENT TO REF LAB 11/08/2021 Normal [facility] Comment on above: Performed By: #### C YTO ####[facility] Jnvkbnodon[address] [place], [place] [address]Dr. Marlin Gonzalez GRAM STAINon 11-08-2021 COMMENTS NO ORGANISMS OBSERVED Normal [facility] Comment on above: Performed By: #### G STAIN ####[facility] Zbrvcmkozg5596 [place] [id number]. Marlin Gonzalez DIPHTHEROIDS Normal [facility] Comment on above: Performed By: #### G STAIN ####[facility] Iafyhfvovz3477 [place] [id number]. Marlin Gonzalez EPITHELIALS Normal [facility] Comment on above: Performed By: #### G STAIN ####[facility] Vphmvjypro[address] [place], [place] [address]Dr. Marlin Gonzalez FUNGAL ELEMENTS Normal [facility] Comment on above: Performed By: #### G STAIN ####[facility] Qnsgqycbrg9907 [place] [address]Dr. Marlin Gonzalez GRAM NEG BACILLI Normal [facility] Comment on above: Performed By: #### G STAIN ####[facility] Geeeuocawv0825 [place] [address]Dr. Marlin Gonzalez GRAM NEG DIPPLOCOCCI Normal [facility] Comment on above: Performed By: #### G STAIN ####[facility] Dfrblygotv5979 [place] [address]Dr. Marlin Gonzalez GRAM POS BACILLI Normal [facility] Comment on above: Performed By: #### G STAIN ####[facility] Mfkibybdkp7883 [place] [address]Dr. Marlin Gonzalez GRAM POSITIVE COCCI Normal [facility] Comment on above: Performed By: #### G STAIN ####[facility] Yhsqkaimpd[address] [place], [place] [address]Dr. Marlin Gonzalez GRAM STAIN SOURCE THORACENTESIS FLUID Normal [facility] Comment on above: Performed By: #### G STAIN ####[facility] Eicsobblzb397[address] [place], [place] [address]Dr. Marlin Gonzalez GS_DIPTH Normal [facility] Comment on above: Performed By: #### G STAIN ####[facility] Uwwtumadzv2570 [place] [address]Dr. Marlin Gonzalez WBC RARE Normal [facility] Comment on above: Performed By: #### G STAIN ####[facility] Lujdqbmiwt5219 [place] [address]Dr. Marlin Gonzalez POINT OF CARE GLUCOSEon - Glucose [Mass/Vol] 107 mg/dL Critically high 74-106 [facility] Comment on above: Performed By: #### P OCGLUC ####[facility] Ntqtxyezlk3426 [place] [address]Dr. Marlin Gonzalez Glucose [Mass/Vol] 86 mg/dL Normal 74-106 [facility] Comment on above: Performed By: #### P OCGLUC ####[facility] Txarnybjwu8523 [place] [address]Dr. Marlin Gonzalez Glucose [Mass/Vol] 260 mg/dL Critically high 74-106 [facility] Comment on above: Performed By: #### P OCGLUC ####[facility] Jbpuchczqc8[address] [place] [address]Dr. Marlin Gonzalez Glucose [Mass/Vol] 121 mg/dL Critically high 74-106 [facility] Comment on above: Performed By: #### P OCGLUC ####[facility] Lkeixqbbeh2872 [place] [address]Dr. Marlin Gonzalez Glucose [Mass/Vol] 179 mg/dL Critically high 74-106 [facility] Comment on above: Performed By: #### P OCGLUC ####[facility] Ybzoulyjoe[address] [place], [place] [address]Dr. Marlin Carlos PROF CHEM 8 (BAS METB)on Anion gap [Moles/Vol] 12.3 mmol/L Normal [facility] Comment on above: Performed By: #### B MP ####[facility] Lwyivqayk[address] [place], [place] [address]Dr. Marlin Gonzalez Calcium [Mass/Vol] 8.1 mg/dL Critically low 8.5-10.1 [facility] Comment on above: Performed By: #### B MP ####[facility] Tzwujdewxe[address] [place], [place] [address]Dr. Marlin Gonzalez Chloride [Moles/Vol] 100 mmol/L Normal 98-107 [facility] Comment on above: Performed By: #### B MP ####[facility] Hztnrhzstp288[address] [place], [place] [address]Dr. Marlin Carlos CO2 [Moles/Vol] 27.1 mmol/L Normal 21.0-32.0 [facility] Comment on above: Performed By: #### B MP ####[facility] Micvwdinvi[address] [place], [place] [address]Dr. Marlin Gonzalez Creatinine [Mass/Vol] 3.21 mg/dL Critically high 0.55-1.02 [facility] Comment on above: Performed By: #### B MP ####[facility] Aivvlaaeax9812 [place] [id number]. Katherinearmando Carlos EGFR-AF ARGENTINE 17 mL/min/1.73m2 Critically low >=60 [facility] Comment on above: Performed By: #### B MP ####[facility] Yhpopaviic0372 [place] [id number]. Katherinearmando Carlos EGFR-NON AF ARGENTINE 14 mL/min/1.73m2 Critically low >=60 [facility] Comment on above: Performed By: #### B MP ####[facility] Ddkbjhjcll8569 [place] [id number]. Marlin Gonzalez Glucose [Mass/Vol] 66 mg/dL Critically low 74-106 [facility] Comment on above: Performed By: #### B MP ####[facility] Fblwiwtmqg6073 [place] [address]Dr. Marlin Gonzalez Potassium [Moles/Vol] 3.4 mmol/L Critically low 3.5-5.1 [facility] Comment on above: Performed By: #### B MP ####[facility] Qjrhxapods1738 [place] [address]Dr. Marlin Gonzlaez Sodium [Moles/Vol] 136 mmol/L Normal 136-145 [facility] Comment on above: Performed By: #### B MP ####[facility] Bckulzvwod6155 [place] [id number]. Marlin Gonzalez Urea nitrogen [Mass/Vol] 96.0 mg/dL Critically high 7.0-18.0 [facility] Comment on above: Performed By: #### B MP ####[facility] Lnypybjceg0355 [place] [id number]. Marlin Gonzalez Urea nitrogen/Creatinine [Mass ratio] 29.9 mg/mg Normal [facility] Comment on above: Performed By: #### B MP ####[facility] Gbgtwgnqmt9957 [place] [id number]. Marlin Gonzalez XR CHEST 1 Von 11-08-2021 XR CHEST 1 V Normal [facility] XR CHEST 1 V Normal [facility] CBC W MANUAL DIFFon 11-08-19 22 ATYPICAL LYMPH # Normal [facility] Comment on above: Performed By: #### C GLORIA ####[facility] Xxdspfcazh0301 [place] [address]Dr. Marlin Gonzalez ATYPICAL LYMPH % Normal [facility] Comment on above: Performed By: #### C GLORIA ####[facility] Cgvixlghsv3405 [place] [address]Dr. Marlin Gonzalez BAND # 0.0 103/ul Normal 0.0-0.3 [facility] Comment on above: Performed By: #### C GLORIA ####[facility] Dfbvscdoaj6020 [place] [address]Dr. Katherinearmando Carlos BAND % 0 % Normal 0-5 [facility] Comment on above: Performed By: #### C GLORIA ####[facility] Gclbhotdpf[address] [place], [place] [address]Dr. Marlin Gonzalez BASOM # 0.08 103/ul Normal 0.00-0.10 [facility] Comment on above: Performed By: #### C GLORIA ####[facility] B[address]xgylgibc[address] [place], [place] [address]Dr. Katherinearmando Carlos BASOM % 1.0 % Normal 0.2-2.0 [facility] Comment on above: Performed By: #### C GLORIA ####[facility] Qmjmsxbrsu[address] [place], [place] [address]Dr. Katherinearmando Gonzalez BLAST # Normal [facility] Comment on above: Performed By: #### C GLORIA ####[facility] Dtuqndlgdh[address] [place], [place] [address]Dr. Marlin Gonzalez BLAST % Normal [facility] Comment on above: Performed By: #### C GLORIA ####[facility] Fbdgwzdhke014[address] [place], [place] [address]Dr. Marlin Gonzalez CORRECTED WBC Normal 4.0-11.0 [facility] Comment on above: Performed By: #### C GLORIA ####[facility] Hifhqkkgnb[address] [place], [place] [address]DrLucia Gonzalez EOS # 0.50 103/ul Normal 0.00-0.70 [facility] Comment on above: Performed By: #### C GLORIA ####[facility] Yyceruqmei4674 [place] [id number] Gonzalez EOS% 6.0 % Normal 0.9-7.0 [facility] Comment on above: Performed By: #### C GLORIA ####[facility] Kwwaqyyjlq9827 [place] [id number]. Marlin Gonzalez HCT 25.7 % Critically low 36.0-48.0 [facility] Comment on above: Performed By: #### C GLORIA ####[facility] Pmgesibebg4397 [place] [address]Dr. Marlin Gonzalez HGB 8.1 g/dl Critically low 12.0-16.0 [facility] Comment on above: Performed By: #### C GLORIA ####[facility] Tgkaobqtqj0024 [place] [address]DrLucia Gonzalez LYMPHM # 0.17 103/ul Critically low 1.20-3.80 [facility] Comment on above: Performed By: #### C GLORIA ####[facility] Rtkxufemmk1124 [place] [address]Dr. Marlin Gonzalez LYMPHM% 2.0 % Critically low 20.5-60.0 [facility] Comment on above: Performed By: #### C GLORIA ####[facility] Tbtydadkfx3099 [place] [id number]. Marlin Gonzalez MCH 29.9 pg Normal 26.7-34.0 [facility] Comment on above: Performed By: #### C GLORIA ####[facility] Kttaynunam2852 [place] [id number] Gonzalez MCHC 31.5 g/dl Normal 29.9-35.2 [facility] Comment on above: Performed By: #### C GLORIA ####[facility] Iujksyqdaq4449 [place] [id number] Gonzalez MCV 94.8 fL Normal 81.0-99.0 [facility] Comment on above: Performed By: #### C GLORIA ####[facility] Oymkljzmjk6009 [place] [id number]. Marlin Gonzalez METAMYELOCYTE # Normal [facility] Comment on above: Performed By: #### Tara CASTRO ####[facility] Uraaodjwjf6194 [place] [phone]. Marlin Gonzalez METAMYELOCYTE % Normal [facility] Comment on above: Performed By: #### C GLORIA ####[facility] Keowekavid4155 [place] [address]Dr. Marlin Gonzalez MONOM# 0.08 103/ul Critically low 0.30-0.80 [facility] Comment on above: Performed By: #### C GLORIA ####[facility] Fwyqnlohhk6237 [place] [address]Dr. Marlin Gonzalez MONOM% 1.0 % Critically low 1.7-12.0 [facility] Comment on above: Performed By: #### Tara CASTRO ####[facility] Mazsfpmnrs8[address] [place], [place] [address]Dr. Marlin Carlos MPV 9.5 fL Normal 9.5-13.5 [facility] Comment on above: Performed By: #### Tara CASTRO ####[facility] Faldpxyhzn[address] [place], [place] [id number]. Marlin Gonzalez MYELOCYTE # Normal [facility] Comment on above: Performed By: #### Tara CASTRO ####[facility] Vmwfbizfro6473 [place] [id number]. Marlin Gonzalez MYELOCYTE % Normal [facility] Comment on above: Performed By: #### Tara CASTRO ####[facility] Wqcfbrczmz5932 [place] [address]Dr. Marlin Gonzalez NRBC Normal [facility] Comment on above: Performed By: #### Tara CASTRO ####[facility] Eydtspmxqk8512 [place] [phone]. Marlin Gonzalez PLT 177 103/ul Normal 150-450 [facility] Comment on above: Performed By: #### C GLORIA ####[facility] Sruslhzkay4233 [place], [place] [address]Ym. Marlin Gonzalez RBC 2.71 106/ul Critically low 4.20-5.40 [facility] Comment on above: Performed By: #### C BCMAN ####[facility] Pwubnvlnfs3783 [place], [place] [address]Jg. Marlin Gonzalez RDW 14.6 % Normal 11.0-15.0 [facility] Comment on above: Performed By: #### C BCMAN ####[facility] Nlvdzlvuor6559 [place], [place] [address]Sj. Marlin Gonzalez SEG # 7.47 103/ul Critically high 1.40-6.50 [facility] Comment on above: Performed By: #### C BCMAN ####[facility] Ornybvnnox1382 [place] [id number]. Marlin Gonzalez SEG % 90.0 % Critically high 43.0-75.0 [facility] Comment on above: Performed By: #### C BCMAN ####[facility] Xqjlxkekgm3900 [place] [id number]. Marlin Gonzalez WBC 8.3 103/ul Normal 4.0-11.0 [facility] Comment on above: Performed By: #### C BCMAN ####[facility] Xnpmdilvnq1823 [place] [phone]. Marlin Gonzalez CELL COUNT BODY FLUIDon 09-2 Clarity, Serous Hazy Abnormal Clear [facility] Comment on above: Performed By: #### C CBFS ####[facility] Dmnwpxowma1645 [place] [phone]. Marlin Gonzalez Color, Serous Yellow Normal [facility] Comment on above: Result Comment: [place] rless to Pale Yellow/Straw Performed By: #### C CBFS ####[facility] Nttxlcxauh0635 [place], [place] [address]Kq. Marlin Gonzalez Comments: Normal [facility] Comment on above: Performed By: #### C CBFS ####[facility] Xlizobpcrw1788 [place] [phone]. Marlin Gonzalez Eosinophils/100 WBC (Bld) 1 % Normal Not Estab. The [facility] Comment on above: Performed By: #### C CBFS ####[facility] Glqvzqmeep7579 [place] [address]Dr. Marlin Gonzalez Lining Cells, Serous Normal [facility] Comment on above: Performed By: #### C CBFS ####[facility] Oxyfnjvzfu8810 [place] [address]Dr. Marlin Gonzalez Lymphocytes/100 WBC (Bld) 0 % Normal Not Estab. The [facility] Comment on above: Performed By: #### C CBFS ####[facility] Wjecrmlijv2778 [place] [address]Dr. Marlin Gonzalez Macrophages, Serous 41 % Normal Not Estab. [facility] Comment on above: Performed By: #### C CBFS ####[facility] Hbruwbgffm1806 [place] [address]Dr. Marlin Gonzalez Nucleated Cells, Serous 2536 /mm3 Critically high 0-499 [facility] Comment on above: Result Comment: Pleu ral Fluid, with <1000 Nucleated cells/uL has been associated with transudates while >1000 uL may be seen in exudates. Performed By: #### C CBFS ####[facility] Jojfdmmvjh[address] [place], [place] [address]Dr. Marlin Gonzalez Polys, Serous 58 % Critically high 0-24 [facility] Comment on above: Performed By: #### C CBFS ####[facility] Bzbwsguimh6942 [place] [address]Dr. Marlin Gonzalez RBC (Bld) [#/Vol] 0.002 10*6/uL Normal Not Estab. The [facility] Comment on above: Performed By: #### C CBFS ####[facility] Qxgkihujdh3156 [place] [address]Dr. Marlin Gonzalez POINT OF CARE GLUCOSEon - Glucose [Mass/Vol] 180 mg/dL Critically high 74-106 [facility] Comment on above: Performed By: #### P OCGLUC ####[facility] Rughxvuotc4416 [place] [address]Dr. Marlin Gonzalez Glucose [Mass/Vol] 129 mg/dL Critically high 74-106 [facility] Comment on above: Performed By: #### P OCGLUC ####[facility] Senudmnzab1090 [place] [address]Dr. Marlin Gonzalez Glucose [Mass/Vol] 194 mg/dL Critically high 74-106 [facility] Comment on above: Performed By: #### P OCGLUC ####[facility] Bbbtlahhed4090 [place] [address]Dr. Marlin Gonzalez Glucose [Mass/Vol] 164 mg/dL Critically high 74-106 [facility] Comment on above: Performed By: #### P OCGLUC ####[facility] Rbaxtdzkdn[address] [place], [place] [address]Dr. Marlin Gonzalez Glucose [Mass/Vol] 89 mg/dL Normal 74-106 [facility] Comment on above: Performed By: #### P OCGLUC ####[facility] Lgtfpbioft17[address] [place], [place] [address]Dr. Marlin Gonzalez Glucose [Mass/Vol] 56 mg/dL Critically low 74-106 [facility] Comment on above: Performed By: #### P OCGLUC ####[facility] Adrzoemxwg39[address] [place], [place] [address]Dr. Marlin Gonzalez PROF CHEM 8 (BAS METB)on Anion gap [Moles/Vol] 13.9 mmol/L Normal [facility] Comment on above: Performed By: #### B MP ####[facility] Ixkgypogle8094[address] [place], [place] [address]Dr. Marlin Gonzalez Calcium [Mass/Vol] 8.0 mg/dL Critically low 8.5-10.1 [facility] Comment on above: Performed By: #### B MP ####[facility] Ajmetoiegf080[address] [place], [place] [address]Dr. Marlin Gonzalez Chloride [Moles/Vol] 98 mmol/L Normal 98-107 [facility] Comment on above: Performed By: #### B MP ####[facility] Rbfvlfegaf0643 [place] [phone]. Marlin Gonzalez CO2 [Moles/Vol] 24.8 mmol/L Normal 21.0-32.0 [facility] Comment on above: Performed By: #### B MP ####[facility] Hbzxurcfhb4604 [place] [phone]. Marlin Gonzalez Creatinine [Mass/Vol] 3.19 mg/dL Critically high 0.55-1.02 [facility] Comment on above: Performed By: #### B MP ####[facility] Adyiabgewm1417 [place] [phone]. Marlin Gonzalez EGFR-AF ARGENTINE 17 mL/min/1.73m2 Critically low >=60 [facility] Comment on above: Performed By: #### B MP ####[facility] Wnxneslrlj[address] [place], [place] [address]Dr. Marlin Gonzalez EGFR-NON AF ARGENTINE 14 mL/min/1.73m2 Critically low >=60 [facility] Comment on above: Performed By: #### B MP ####[facility] Zpzcidwpan9790 [place] [phone]. Marlin Gonzalez Glucose [Mass/Vol] 132 mg/dL Critically high 74-106 [facility] Comment on above: Performed By: #### B MP ####[facility] Tatkdzamtq5980 [place] [phone]. Marlin Gonzalez Potassium [Moles/Vol] 3.7 mmol/L Normal 3.5-5.1 [facility] Comment on above: Performed By: #### B MP ####[facility] Zekwnvfybo9767 [place] [phone]. Marlin Gonzalez Sodium [Moles/Vol] 133 mmol/L Critically low 136-145 [facility] Comment on above: Performed By: #### B MP ####[facility] Kweheqzzsm8139 [place] [phone]. Marlin Gonzalez Urea nitrogen [Mass/Vol] 93.0 mg/dL Critically high 7.0-18.0 [facility] Comment on above: Performed By: #### B MP ####[facility] Dvblbdydcr9024 [place] [phone]. Marlin Gonzalez Urea nitrogen/Creatinine [Mass ratio] 29.2 mg/mg Normal [facility] Comment on above: Performed By: #### B MP ####[facility] Nqaiodrzoa1676 [place] [phone]. Marlin Gonzalez XR CHEST 2 Von 11-07-2021 XR CHEST 2 V Normal [facility] XR SHOULDER RT 2V or >on XR SHOULDER RT 2V or > Normal [facility] CBC AUTO DIFFon 11-06-2021 BASO # 0.0 103/ul Normal 0.0-0.1 [facility] Comment on above: Performed By: #### C BC ####[facility] Smwebdaick1033 [place] [address]Dr. Marlin Carlos Basophils/100 WBC (Bld) 0.1 % Critically low 0.2-2.0 [facility] Comment on above: Performed By: #### C BC ####[facility] Mihohtgyza4266 [place] [address]Dr. Marlin Carlos EO # 0.1 103/ul Normal 0.0-0.7 [facility] Comment on above: Performed By: #### C BC ####[facility] Yqrcbavzmn9462 [place] [id number]. Marlin Carlos Eosinophils/100 WBC (Bld) 1.2 % Normal 0.9-7.0 [facility] Comment on above: Performed By: #### C BC ####[facility] Mpqiwfganv7596 [place] [phone]. Marlin Gonzalez Erythrocyte distribution width (RBC) [Ratio] 14.9 % Normal 11.0-15.0 [facility] Comment on above: Performed By: #### C BC ####[facility] Swjrhjfsig5638 [place] [phone]. Marlin Gonzalez Hematocrit (Bld) [Volume fraction] 25.3 % Critically low 36.0-48.0 [facility] Comment on above: Performed By: #### C BC ####[facility] Ikeiwxhgkg8694 [place] [id number]. Marlin Gonzalez Hemoglobin (Bld) [Mass/Vol] 8.0 g/dL Critically low 12.0-16.0 [facility] Comment on above: Performed By: #### C BC ####[facility] Oaxgjlffub6869 [place] [address]Dr. Marlin Gonzalez IG # 0.04 10e3/ul Critically high 0.00-0.03 [facility] Comment on above: Performed By: #### C BC ####[facility] Vnvgyduahi9755 [place] [address]Dr. Marlin Gonzalez IG % 0.4 % Normal 0.0-0.5 [facility] Comment on above: Performed By: #### C BC ####[facility] Yodkfgqgbx8274 [place] [address]Dr. Marlin Gonzalez LYMPH # 1.2 103/ul Normal 1.2-3.8 [facility] Comment on above: Performed By: #### C BC ####[facility] Apfmmdgque0517 [place] [address]Dr. Marlin Gonzalez Lymphocytes/100 WBC (Bld) 12.9 % Critically low 20.5-60.0 [facility] Comment on above: Performed By: #### C BC ####[facility] Rkaroyckns2180 [place] [address]Dr. Marlin Gonzalez MANUAL DIFF REQ NO Normal [facility] Comment on above: Performed By: #### C BC ####[facility] Lkifoelvnp[address] [place], [place] [address]Dr. Marlin Gonzalez MCH (RBC) [Entitic mass] 29.9 pg Normal 26.7-34.0 [facility] Comment on above: Performed By: #### C BC ####[facility] Pkyjmsekkd90[address] [place], [place] [address]Dr. Marlin Gonzalez MCHC (RBC) [Mass/Vol] 31.6 g/dL Normal 29.9-35.2 [facility] Comment on above: Performed By: #### C BC ####[facility] Dffsudehck1181 [place] [phone]. Marlin Gonzalez MCV (RBC) [Entitic vol] 94.4 fL Normal 81.0-99.0 [facility] Comment on above: Performed By: #### C BC ####[facility] Pnphnqlxaa2843 [place] [phone]. Marlin Gonzalez MONO # 0.7 103/ul Normal 0.3-0.8 [facility] Comment on above: Performed By: #### C BC ####[facility] Ptdothcvos3848 [place] [address]Dr. Marlin Gonzalez Monocytes/100 WBC (Bld) 7.4 % Normal 1.7-12.0 [facility] Comment on above: Performed By: #### C BC ####[facility] Ykjtxwcpde85[address] [place], [place] [address]Dr. Marlin Gonzalez NEUT # 7.1 103/ul Critically high 1.4-6.5 [facility] Comment on above: Performed By: #### C BC ####[facility] Hemjkkubdx39[address] [place], [place] [address]Dr. Marlin Gonzalez Neutrophils/100 WBC (Bld) 78.0 % Critically high 43.0-75.0 [facility] Comment on above: Performed By: #### C BC ####[facility] Rzglwijris[address] [place], [place] [address]Dr. Marlin Gonzalez Platelet mean volume (Bld) [Entitic vol] 10.0 fL Normal 9.5-13.5 [facility] Comment on above: Performed By: #### C BC ####[facility] Hxywmgujgp9177 [place] [id number]. Marlin Gonzalez PLT 169 103/ul Normal 150-450 [facility] Comment on above: Performed By: #### C BC ####[facility] Atynzucycz5351 [place] [phone]. Marlin Gonzalez RBC 2.68 106/ul Critically low 4.20-5.40 [facility] Comment on above: Performed By: #### C BC ####[facility] Ijlkstbxgl8420 [place], [place] [address]Ha. Marlin Gonzalez WBC 9.1 103/ul Normal 4.0-11.0 [facility] Comment on above: Performed By: #### C BC ####[facility] Rxodmjvpbs9707 [place], [place] [address]Mo. Marlin Gonzalez GLUCOSE BODYFLUIDon 11-07-19 22 Glucose, Body Fluid 265 mg/dL Normal [facility] Comment on above: Result Comment: ____ [...] - 288 : : : : . Dysart W, Jennyfer V. Reference Intervals for Adults and Children 2008. Ninth edition (V9.1) [facility]; [place]: August 2008.The reference intervals and other method performance specificationshave not been established for this test. The test result should beintegrated into the clinical context for interpretation. Performed By: #### B FGLUC ####[address] [address]Ku. Marlin Gonzalez LACTIC ACID DEHYDROGENASE (L D), BODY FLUon 11-06-2021 LD, Body Fluid 278 IU/L Normal [facility] Comment on above: Result Comment: ____ [...] : <240 : : : : . Jennyfer Murphy V. Reference Intervals for Adults and Children 2008. Ninth Edition (V9.1) [employer], [facility]; [place]: August 2008.The reference intervals and other method performance specificationshave not been established for this test. The test result should beintegrated into the clinical context for interpretation. Performed By: #### L DHBF ####[facility] Vcqpycgcha[address] [place], [place] [address]Dr. Marlin Gonzalez POINT OF CARE GLUCOSEon 10-12 Glucose [Mass/Vol] 165 mg/dL Critically high 74-106 [facility] Comment on above: Performed By: #### P OCGLUC ####[facility] Pgbdeegktc[address] [place], [place] [address]Dr. Marlin Gonzalez Glucose [Mass/Vol] 150 mg/dL Critically high 74-106 [facility] Comment on above: Performed By: #### P OCGLUC ####[facility] Jxumxwfknv[address] [place], [place] [address]Dr. Marlin Gonzalez Glucose [Mass/Vol] 209 mg/dL Critically high 74-106 [facility] Comment on above: Performed By: #### P OCGLUC ####[facility] Uyecoauzfw[address] [place], [place] [address]Dr. Marlin Gonzalez PROF CHEM 8 (BAS METB)on Anion gap [Moles/Vol] 16.0 mmol/L Normal [facility] Comment on above: Performed By: #### B MP ####[facility] Npwvsmvurw[address] [place], [place] [address]Dr. Marlin Gonzalez Calcium [Mass/Vol] 8.3 mg/dL Critically low 8.5-10.1 [facility] Comment on above: Performed By: #### B MP ####[facility] Kkoktceozc[address] [place], [place] [address]Dr. Marlin Gonzalez Chloride [Moles/Vol] 97 mmol/L Critically low 98-107 [facility] Comment on above: Performed By: #### B MP ####[facility] Tutntlfdeo96[address] [place], [place] [address]Dr. Marlin Gonzalez CO2 [Moles/Vol] 23.8 mmol/L Normal 21.0-32.0 [facility] Comment on above: Performed By: #### B MP ####[facility] Hkkfkwqcwx7[address] [place], [place] [address]Dr. Marlin Gonzalez Creatinine [Mass/Vol] 3.37 mg/dL Critically high 0.55-1.02 [facility] Comment on above: Performed By: #### B MP ####[facility] Vzamflcfty[address] [place], [place] [address]Dr. Marlin Gonzalez EGFR-AF ARGENTINE 16 mL/min/1.73m2 Critically low >=60 [facility] Comment on above: Performed By: #### B MP ####[facility] Hcvoasrwkt[address] [place], [place] [address]Dr. Marlin Gonzalez EGFR-NON AF ARGENTINE 13 mL/min/1.73m2 Critically low >=60 [facility] Comment on above: Performed By: #### B MP ####[facility] Ytkgwlxczy[address] [place], [place] [address]Dr. Marlin Gonzalez Glucose [Mass/Vol] 117 mg/dL Critically high 74-106 [facility] Comment on above: Performed By: #### B MP ####[facility] Dujkezfbbz30[address] [place] [address]Dr. Marlin Gonzalez Potassium [Moles/Vol] 3.8 mmol/L Normal 3.5-5.1 [facility] Comment on above: Performed By: #### B MP ####[facility] Glrnbrnxbs6229 [place] [address]Dr. Marlin Gonzalez Sodium [Moles/Vol] 133 mmol/L Critically low 136-145 Th e [facility] Comment on above: Performed By: #### B MP ####[facility] Ikdchssckj0526 [place] [address]Dr. Marlin Gonzalez Urea nitrogen [Mass/Vol] 97.0 mg/dL Critically high 7.0-18.0 [facility] Comment on above: Performed By: #### B MP ####[facility] Acparkwpmg[address] [place], [place] [address]Dr. Marlin Gonzalez Urea nitrogen/Creatinine [Mass ratio] 28.8 mg/mg Normal [facility] Comment on above: Performed By: #### B MP ####[facility] Jxahrmwmhq747[address] [place], [place] [address]Dr. Marlin Gonzalez PROTEIN, TOTAL, BODY FLUIDon 11-06-2021 Protein, Body Fluid 2.8 g/dL Normal [facility] Comment on above: Result Comment: ____ : [...] - 0.9 : : : : . Jose Miguel W, Jennyfer V. Reference Intervals for Adults and Children 2008. Ninth Edition (V9.1) [employer], [facility]; [place]: August 2008.The method performance specifications have not been established forthis test in body fluid. The test result should be integrated intothe clinical context for interpretation. Performed By: #### T PBF ####[facility] Jihibdlacg1548[address] [place], [place] [address]Dr. Marlin Gonzalez TRIGLYCERIDES, FLUIDon 11-06 Triglycerides, Fluid 16 mg/dL Normal Not Estab. [facility] Comment on above: Result Comment: The reference intervals and other method performance specificationshave not been established for this test. The test result should beintegrated into the clinical context for interpretation.The reference interval(s) and other method performance specificationshave not been established for this body fluid. The test result must beintegrated into the clinical context for interpretation. Performed By: #### T RIGFLU ####[facility] Gipiorovha24[address] [place], [place] [address]Dr. Marlin Gonzalez XR CHEST 1 Von 11-06-2021 XR CHEST 1 V Normal [facility] XR SHOULDER RT 2V or >on XR SHOULDER RT 2V or > Normal [facility] CBC AUTO DIFFon 11-05-2021 BASO # 0.0 103/ul Normal 0.0-0.1 [facility] Comment on above: Performed By: #### C BC ####[facility] Pjubiouynj727[address] [place], [place] [address]DrLucia Gonzalez Basophils/100 WBC (Bld) 0.0 % Critically low 0.2-2.0 [facility] Comment on above: Performed By: #### C BC ####[facility] Mewuyjzwqa95[address] [place], [place] [address]DrLucia Gonzalez EO # 0.0 103/ul Normal 0.0-0.7 [facility] Comment on above: Performed By: #### C BC ####[facility] Tobeyhpjol288[address] [place], [place] [address]DrLucia Gonzalez Eosinophils/100 WBC (Bld) 0.0 % Critically low 0.9-7.0 [facility] Comment on above: Performed By: #### C BC ####[facility] Hpddtsohdb[address] [place], [place] [address]DrLucia Gonzalez Erythrocyte distribution width (RBC) [Ratio] 14.9 % Normal 11.0-15.0 [facility] Comment on above: Performed By: #### C BC ####[facility] Zfmghipkty755[address] [place], [place] [address]DrLucia Gonzalez Hematocrit (Bld) [Volume fraction] 27.6 % Critically low 36.0-48.0 [facility] Comment on above: Performed By: #### C BC ####[facility] Uopbtssbxn309[address] [place], [place] [address]DrLucia Gonzalez Hemoglobin (Bld) [Mass/Vol] 8.9 g/dL Critically low 12.0-16.0 [facility] Comment on above: Performed By: #### C BC ####[facility] Pxrigrufwn734[address] [place], [place] [address]DrLucia Gonzalez IG # 0.05 10e3/ul Critically high 0.00-0.03 [facility] Comment on above: Performed By: #### C BC ####[facility] Wiksitpmno9427[address] [place], [place] [address]DrLucia Gonzalez IG % 0.7 % Critically high 0.0-0.5 [facility] Comment on above: Performed By: #### C BC ####[facility] Gscjkviayp2008[address] [place], [place] [address]Dr. Marlin Gonzalez LYMPH # 0.5 103/ul Critically low 1.2-3.8 [facility] Comment on above: Performed By: #### C BC ####[facility] Durdocjukn2399 [place] [address]Dr. Marlin Gonzalez Lymphocytes/100 WBC (Bld) 6.0 % Critically low 20.5-60.0 [facility] Comment on above: Performed By: #### C BC ####[facility] Lcokwztbme7713[address] [place], [place] [address]Dr. Marlin Gonzalez MANUAL DIFF REQ NO Normal [facility] Comment on above: Performed By: #### C BC ####[facility] Hbwkaapsyu075[address] [place], [place] [address]Dr. Marlin Gonzalez MCH (RBC) [Entitic mass] 30.4 pg Normal 26.7-34.0 [facility] Comment on above: Performed By: #### C BC ####[facility] Hhfpzywtvg8586[address] [place], [place] [address]Dr. Marlin Gonzalez MCHC (RBC) [Mass/Vol] 32.2 g/dL Normal 29.9-35.2 [facility] Comment on above: Performed By: #### C BC ####[facility] Deeadduhef6299[address] [place], [place] [address]DrLucia Gonzalez MCV (RBC) [Entitic vol] 94.2 fL Normal 81.0-99.0 [facility] Comment on above: Performed By: #### C BC ####[facility] Bfboozjyhy[address] [place], [place] [address]DrLucia Gonzalez MONO # 0.4 103/ul Normal 0.3-0.8 [facility] Comment on above: Performed By: #### C BC ####[facility] Barpjwpxrb537[address] [place], [place] [address]DrLucia Gonzalez Monocytes/100 WBC (Bld) 5.8 % Normal 1.7-12.0 [facility] Comment on above: Performed By: #### C BC ####[facility] Ytipxzeglv0949[address] [place], [place] [address]Dr. Marlin Gonzalez NEUT # 6.5 103/ul Normal 1.4-6.5 [facility] Comment on above: Performed By: #### C BC ####[facility] Sqcxzdiulq4770 [place] [address]Dr. Marlin Gonzalez Neutrophils/100 WBC (Bld) 87.5 % Critically high 43.0-75.0 [facility] Comment on above: Performed By: #### C BC ####[facility] Hquyybinff9012 [place] [address]Dr. Marlin Gonzalez Platelet mean volume (Bld) [Entitic vol] 9.9 fL Normal 9.5-13.5 [facility] Comment on above: Performed By: #### C BC ####[facility] Pwawhokmqo155[address] [place], [place] [address]Dr. Marlin Gonzalez PLT 175 103/ul Normal 150-450 [facility] Comment on above: Performed By: #### C BC ####[facility] Guzfelmzpc918[address] [place], [place] [address]Dr. Marlin Gonzalez RBC 2.93 106/ul Critically low 4.20-5.40 [facility] Comment on above: Performed By: #### C BC ####[facility] Zfnpjkhujz532[address] [place], [place] [address]DrLucia Marlin Gonzalez WBC 7.5 103/ul Normal 4.0-11.0 [facility] Comment on above: Performed By: #### C BC ####[facility] Hffxqarmah18[address] [place], [place] [address]DrLucia Marlin Gonzalez CULTURE STERILE BODY FLUIDon 11-05-2021 CULTURE STERILE BODY FLUID Culture Observations: NO GROWTH AT 72 HOURS. Normal [facility] Comment on above: Performed By: #### S TBFCX ####[facility] Txnxoediqv2735[address] [place], [place] [address]DrLucia Marlin Gonzalez CYTOLOGYon 11-05-2021 SENT TO REF LAB 11/05/2021 Normal [facility] Comment on above: Performed By: #### C YTO ####[facility] Sdyhibfzsv62[address] [place], [place] [address]Dr. Marlin Gonzalez GRAM STAINon 11-05-2021 COMMENTS NO ORGANISMS OBSERVED Normal [facility] Comment on above: Performed By: #### G STAIN ####[facility] Ngreyyncbv8625 [place] [address]Dr. Marlin Gonzalez DIPHTHEROIDS Normal [facility] Comment on above: Performed By: #### G STAIN ####[facility] Xkzgkpuczp6169 [place] [address]Dr. Marlin Gonzalez EPITHELIALS Normal [facility] Comment on above: Performed By: #### G STAIN ####[facility] Depcfmdlgv2355 [place] [address]Dr. Marlin Gonzalez FUNGAL ELEMENTS Normal [facility] Comment on above: Performed By: #### G STAIN ####[facility] Yqkmprztcr765[address] [place], [place] [address]Dr. Marlin Gonzalez GRAM NEG BACILLI Normal [facility] Comment on above: Performed By: #### G STAIN ####[facility] Gitydzpbbg815[address] [place], [place] [address]Dr. Marlin Gonzalez GRAM NEG DIPPLOCOCCI Normal [facility] Comment on above: Performed By: #### G STAIN ####[facility] Ciwejeyhdb3044[address] [place], [place] [address]Dr. Marlin Gonzalez GRAM POS BACILLI Normal [facility] Comment on above: Performed By: #### G STAIN ####[facility] Zszhgfjecv266[address] [place], [place] [address]Dr. Marlin Gonzalez GRAM POSITIVE COCCI Normal [facility] Comment on above: Performed By: #### G STAIN ####[facility] Mkbocjuqec24[address] [place], [place] [address]Dr. Marlin Gonzalez GRAM STAIN SOURCE THORACENTESIS FLUID Normal [facility] Comment on above: Performed By: #### G STAIN ####[facility] Ceupxdxreh850[address] [place], [place] [address]Dr. Marlin Gonzalez GS_DIPTH Normal [facility] Comment on above: Performed By: #### G STAIN ####[facility] Gjxfgfuhzr49[address] [place], [place] [address]Dr. Marlin Gonzalez WBC RARE Normal [facility] Comment on above: Performed By: #### G STAIN ####[facility] Xfbhxbpqoc2374 [place] [id number]. Katherinearmando Carlos POINT OF CARE GLUCOSEon 10-12 Glucose [Mass/Vol] 150 mg/dL Critically high 74-106 [facility] Comment on above: Performed By: #### P OCGLUC ####[facility] Zinkucowiw3513 [place] [address]Dr. Marlin Gonzalez Glucose [Mass/Vol] 145 mg/dL Critically high 74-106 [facility] Comment on above: Performed By: #### P OCGLUC ####[facility] Ttybgrtler965[address] [place], [place] [address]Dr. Marlin Gonzalez Glucose [Mass/Vol] 356 mg/dL Critically high -106 [facility] Comment on above: Performed By: #### P OCGLUC ####[facility] Oyaxotxbtw6664[address] [place], [place] [address]Dr. Marlin Gonzalez Glucose [Mass/Vol] 207 mg/dL Critically high -106 [facility] Comment on above: Performed By: #### P OCGLUC ####[facility] Lyuivmprnc768[address] [place], [place] [address]Dr. Marlin Gonzalez PROF CHEM 8 (BAS METB)on Anion gap [Moles/Vol] 15.7 mmol/L Normal [facility] Comment on above: Performed By: #### B MP ####[facility] Mdhabkgvcu1361 [place] [address]Dr. Marlin Gonzalez Calcium [Mass/Vol] 8.8 mg/dL Normal 8.5-10.1 [facility] Comment on above: Performed By: #### B MP ####[facility] Ettoqzebpk238[address] [place], [place] [address]Dr. Marlin Gonzalez Chloride [Moles/Vol] 101 mmol/L Normal 98-107 [facility] Comment on above: Performed By: #### B MP ####[facility] Eiwakqadmn210[address] [place], [place] [address]DrLucia Gonzalez CO2 [Moles/Vol] 23.0 mmol/L Normal 21.0-32.0 [facility] Comment on above: Performed By: #### B MP ####[facility] Rskknueymp6522[address] [place], [place] [address]Dr. Marlin Gonzalez Creatinine [Mass/Vol] 3.21 mg/dL Critically high 0.55-1.02 [facility] Comment on above: Performed By: #### B MP ####[facility] Xokttskyml5895[address] [place], [place] [address]Dr. Marlin Carlos EGFR-AF ARGENTINE 17 mL/min/1.73m2 Critically low >=60 [facility] Comment on above: Performed By: #### B MP ####[facility] Fsagivqssq1206[address] [place], [place] [address]Dr. Katherinearmando Carlos EGFR-NON AF ARGENTINE 14 mL/min/1.73m2 Critically low >=60 [facility] Comment on above: Performed By: #### B MP ####[facility] Uskpzpoxqc15[address] [place], [place] [address]Dr. Marlin Carlos Glucose [Mass/Vol] 203 mg/dL Critically high 74-106 [facility] Comment on above: Performed By: #### B MP ####[facility] Zyynlbtecn844[address] [place], [place] [address]Dr. Marlin Gonzalez Potassium [Moles/Vol] 3.7 mmol/L Normal 3.5-5.1 [facility] Comment on above: Performed By: #### B MP ####[facility] Myewnzpwyf[address] [place], [place] [address]Dr. Marlin Gonzalez Sodium [Moles/Vol] 136 mmol/L Normal 136-145 [facility] Comment on above: Performed By: #### B MP ####[facility] Gecylivaju3743[address] [place], [place] [address]Dr. Marlin Carlos Urea nitrogen [Mass/Vol] 94.0 mg/dL Critically high 7.0-18.0 [facility] Comment on above: Performed By: #### B MP ####[facility] Eveahuhqao2467[address] [place], [place] [address]Dr. Marlin Gonzalez Urea nitrogen/Creatinine [Mass ratio] 29.3 mg/mg Normal [facility] Comment on above: Performed By: #### B MP ####[facility] Uvyrxakgtx[address] [place], [place] [address]Dr. Marlin Gonzalez VANCOMYCIN TROUGHon 11-06-19 VANCOMYCIN TROUGH 10.3 ug/ml Normal 5.0-20.0 [facility] Comment on above: Performed By: #### V ANCT ####[facility] Acgmjvejrv[address] [place], [place] [address]Dr. Marlin Gonzalez XR CHEST 1 Von 11-05-2021 XR CHEST 1 V Normal [facility] BLOOD GASES BTYon 11-04-2021 02 MODE NASAL CANNULA Normal [facility] Comment on above: Performed By: #### A BG ####[facility] Dopaphknwc[address] [place], [place] [address]Dr. Marlin Gonzalez ALLENS TEST Positive Normal [facility] Comment on above: Performed By: #### A BG ####[facility] Aszovvcnce820[address] [place], [place] [address]Dr. Marlin Gonzalez Base excess Calc (Bld) [Moles/Vol] -0.5000 mmol/L Normal -2.0-2.0 [facility] Comment on above: Performed By: #### A BG ####[facility] Gkzcpivjom[address] [place], [place] [address]Dr. Marlin Gonzalez BIPAP PRESSURE Normal [facility] Comment on above: Performed By: #### A BG ####[facility] Zyftozwtla99[address] [place], [place] [address]Dr. Marlin Gonzalez CPAP Normal [facility] Comment on above: Performed By: #### A BG ####[facility] Quxnqrbpgd2744[address] [place], [place] [address]Dr. Marlin Gonzalez FIO2 Normal [facility] Comment on above: Performed By: #### A BG ####[facility] Veaclkwjns2547[address] [place], [place] [address]Dr. Marlin Gonzalez HCO3 (Bld) [Moles/Vol] 49.8 mmol/L Critically high 22.0-26 .0 [facility] Comment on above: Performed By: #### A BG ####[facility] Qieayappay0981 [place] [address]Dr. Marlin Gonzalez LPM Normal [facility] Comment on above: Performed By: #### A BG ####[facility] Jgyyakbrpp9[address] [place], [place] [address]Dr. Marlin Gonzalez MINUTE VOLUME Normal [facility] Comment on above: Performed By: #### A BG ####[facility] Bzaomhctmi26[address] [place], [place] [address]Dr. Marlin Gonzalez Oxygen (Bld) [Partial pressure] 78.3 mm[Hg] Critically low 80.0-100.0 [facility] Comment on above: Performed By: #### A BG ####[facility] Wsaijupwnu739[address] [place], [place] [address]Dr. Marlin Gonzalez Oxygen saturation in Blood 97.0 % Normal 95.0-100.0 [facility] Comment on above: Performed By: #### A BG ####[facility] Ecxjvwtehx[address] [place], [place] [address]Dr. Marlin Gonzalez PCO2 34.2 mmHg Critically low 35.0-45.0 [facility] Comment on above: Performed By: #### A BG ####[facility] Bbfltcnkfr[address] [place], [place] [address]Dr. Marlin Gonzalez PEEP [facility] Comment on above: Performed By: #### A BG ####[facility] Ngdjiiqymv[address] [place], [place] [address]Dr. Marlin Gonzalez pH (Bld) 7.446 [pH] Normal 7.350-7.450 [facility] Comment on above: Performed By: #### A BG ####[facility] Pjoflxndbt[address] [place], [place] [address]Dr. Marlin Gonzalez PIP [facility] Comment on above: Performed By: #### A BG ####[facility] [facility] Omrgwhvqyv[address] [place], [place] [address]Dr. Marlin Gonzalez [place] [facility] Comment on above: Performed By: #### A BG ####[facility] Pzlwgplgue6072 [place] [address]Dr. Marlin Gonzalez PUNCTURE SITE RR Normal [facility] Comment on above: Performed By: #### A BG ####[facility] Swdvsfgpve6622 [place] [address]Dr. Marlin Gonzalez RATE Normal [facility] Comment on above: Performed By: #### A BG ####[facility] Bfmdjhhptj9900 [place] [address]Dr. Marlin Gonzalez VENT MODE Normal [facility] Comment on above: Performed By: #### A BG ####[facility] Wuhrxpkcue1677 [place] [address]Dr. Marlin Gonzalez [facility] Comment on above: Performed By: #### A BG ####[facility] Afsqulezju9569 [place] [address]Dr. Marlin Gonzalez CARDIAC JOSSIE ADMITon 022 CK [Catalytic activity/Vol] 43 U/L Normal 26-192 [facility] Comment on above: Performed By: #### C FLOR ESCOBAR ####[facility] Eaiiuodqdr6316 [place] [address]Dr. Marlin Gonzalez CK.MB [Mass/Vol] 2.43 ng/mL Normal <=3.60 [facility] Comment on above: Performed By: #### C SHAWN, CMADM ####[facility] Rmzdjeteou6930 [place] [address]Dr. Katherinearmando Gonzalez HSTROP 37.7 pg/mL Normal 4.0-51.3 [facility] Comment on above: Result Comment: CUT- OFF POINTS HAVE BEEN ESTABLISHED BASED ON THE FOURTH UNIVERSAL DEFINITIONS OF MYOCARDIALINFARCTION. THE UPPER REFERENCE LIMIT (URL) OF TROPONIN, DEFINED THE 99TH PERCENTILE OFcTnI DISTRIBUTION IN A REFERENCE POPULATION, HAS BEEN CONFIRMED THE DECISION THRESHOLDFOR CT DIAGNOSIS. Performed By: #### C SHAWN, CMADM ####[facility] Jfxuotzyer2901 [place] [address]Dr. Marlin Gonzalez GHASSAN 121 ng/mL Critically high 9-82 [facility] Comment on above: Performed By: #### C MP, CMADM ####[facility] Nmletjdfxu2523 [place] [address]Dr. Marlin Carlos CBC AUTO DIFFon 11-04-2021 BASO # 0.0 103/ul Normal 0.0-0.1 [facility] Comment on above: Performed By: #### C BC ####[facility] Gkjidydcup2913 [place] [address]Dr. Marlin Gonzalez Basophils/100 WBC (Bld) 0.2 % Normal 0.2-2.0 [facility] Comment on above: Performed By: #### C BC ####[facility] Cznpxahxso[address] [place], [place] [address]Dr. Marlin Gonzalez EO # 0.2 103/ul Normal 0.0-0.7 [facility] Comment on above: Performed By: #### C BC ####[facility] Jrmbmvjgmn24[address] [place], [place] [address]Dr. Marlin Gonzalez Eosinophils/100 WBC (Bld) 2.0 % Normal 0.9-7.0 [facility] Comment on above: Performed By: #### C BC ####[facility] Gaalqnjuej98[address] [place], [place] [address]Dr. Marlin Gonzalez Erythrocyte distribution width (RBC) [Ratio] 15.1 % Critically high 11.0-15.0 [facility] Comment on above: Performed By: #### C BC ####[facility] Dbsxslvksk6[address] [place], [place] [address]Dr. Marlin Gonzalez Hematocrit (Bld) [Volume fraction] 27.3 % Critically low 36.0-48.0 [facility] Comment on above: Performed By: #### C BC ####[facility] Zlljvsttpa[address] [place], [place] [address]Dr. Marlin Gonzalez Hemoglobin (Bld) [Mass/Vol] 8.8 g/dL Critically low 12.0-16.0 [facility] Comment on above: Performed By: #### C BC ####[facility] Jcvqhgnrpk94[address] [place], [place] [address]Dr. Marlin Gonzlaez IG # 0.05 10e3/ul Critically high 0.00-0.03 [facility] Comment on above: Performed By: #### C BC ####[facility] Bzbykvzpay4623 [place] [address]DrLucia Marlin Carlos IG % 0.5 % Normal 0.0-0.5 [facility] Comment on above: Performed By: #### C BC ####[facility] Uaysylbbpb6468 [place] [address]DrLucia Marlin Carlos LYMPH # 1.2 103/ul Normal 1.2-3.8 [facility] Comment on above: Performed By: #### C BC ####[facility] Cibotgkegn19[address] [place], [place] [address]DrLucia Katherinearmando Gonzalez Lymphocytes/100 WBC (Bld) 10.9 % Critically low 20.5-60.0 [facility] Comment on above: Performed By: #### C BC ####[facility] Rkravdcajz74[address] [place], [place] [address]DrLucia Katherinearmando Gonzalez MANUAL DIFF REQ NO Normal [facility] Comment on above: Performed By: #### C BC ####[facility] Irrvmmvebd15[address] [place], [place] [address]DrLucia Marlin Carlos MCH (RBC) [Entitic mass] 30.6 pg Normal 26.7-34.0 [facility] Comment on above: Performed By: #### C BC ####[facility] Imxpsbdwba[address] [place], [place] [address]DrLucia Marlin Carlos MCHC (RBC) [Mass/Vol] 32.2 g/dL Normal 29.9-35.2 [facility] Comment on above: Performed By: #### C BC ####[facility] Rzxmuylqxz[address] [place], [place] [address]DrLucia Katherinearmando Gonzalez MCV (RBC) [Entitic vol] 94.8 fL Normal 81.0-99.0 [facility] Comment on above: Performed By: #### C BC ####[facility] Kbwbrtdhhr249[address] [place], [place] [address]DrLucia Gonzalez MONO # 1.2 103/ul Critically high 0.3-0.8 [facility] Comment on above: Performed By: #### C BC ####[facility] Fjxufiendm9846 [place] [address]Dr. Marlin Gonzalez Monocytes/100 WBC (Bld) 11.2 % Normal 1.7-12.0 [facility] Comment on above: Performed By: #### C BC ####[facility] Jegdoidswi3122 [place] [address]Dr. Marlin Gonzalez NEUT # 8.0 103/ul Critically high 1.4-6.5 [facility] Comment on above: Performed By: #### C BC ####[facility] Ynbacamzdn5483 [place] [address]Dr. Marlin Gonzalez Neutrophils/100 WBC (Bld) 75.2 % Critically high 43.0-75.0 [facility] Comment on above: Performed By: #### C BC ####[facility] Ofdrxnmzut57[address] [place], [place] [address]Dr. Marlin Gonzalez Platelet mean volume (Bld) [Entitic vol] 10.4 fL Normal 9.5-13.5 [facility] Comment on above: Performed By: #### C BC ####[facility] Imufrhmqhz[address] [place], [place] [address]Dr. Marlin Gonzalez PLT 172 103/ul Normal 150-450 [facility] Comment on above: Performed By: #### C BC ####[facility] Phoefeiigs0896 [place] [address]Dr. Marlin Gonzalez RBC 2.88 106/ul Critically low 4.20-5.40 [facility] Comment on above: Performed By: #### C BC ####[facility] Eanryobfxe0086 [place] [address]Dr. Marlin Gonzalez WBC 10.6 103/ul Normal 4.0-11.0 [facility] Comment on above: Performed By: #### C BC ####[facility] Inhperotet9057 [place] [id number]. Marlin Gonzalez CT CHEST WO CONon 11-04-2021 CT CHEST WO CON Normal [facility] Covid-19 PCR (CVDTB)on 10-12 SARS-CoV-2 (COVID-19) RNA MADISON+probe Ql (Unsp spec) Not detected Normal NOT DETECTED [facility] Comment on above: Result Comment: When [...] for this test is supported by the Operations Advisor of Health and Human Service's declaration that [...] be used). Performed By: #### C VDTB ####[facility] Gizcusnptc[address] [place], [place] [address]Dr. Marlin Gonzalez ER URINE PROFILEon Bilirubin Ql (U) Negative Normal NEGATIVE [facility] Comment on above: Performed By: #### VIVIAN VAZQUEZ ####[facility] Msfgewnhfg[address] [place], [place] [address]Dr. Marlin Gonzalez Clarity (U) CLEAR Normal CLEAR [facility] Comment on above: Performed By: #### VIVIAN VAZQUEZ ####[facility] Uzynreufqk27[address] [place], [place] [address]Dr. Marlin Gonzalez Color (U) LT. YELLOW Normal YELLOW [facility] Comment on above: Performed By: #### KANA VAZQUEZRO ####[facility] Dlbpcxnlld[address] [place], [place] [address]Dr. Marlin Gonzalez ERUAHD A micrscopic examina tion will be performed if indicated. Normal [facility] Comment on above: Performed By: #### E RUR, UMICRO ####[facility] Rchnwjqgvq9755 [place] [address]Dr. Marlin Gonzalez Glucose Ql (U) Negative Normal NEGATIVE [facility] Comment on above: Performed By: #### VIVIAN VAZQUEZ ####[facility] Codoeoubec8918 [place] [address]Dr. Marlin Gonzalez Hemoglobin Ql (U) Negative Normal NEGATIVE [facility] Comment on above: Performed By: #### VIVIAN VAZQUEZ ####[facility] Nrelbiopgv8147[address] [place], [place] [address]Dr. Marlin Gonzalez Ketones Ql (U) Negative Normal NEGATIVE [facility] Comment on above: Performed By: #### VIVIAN VAZQUEZ ####[facility] Dcyowbxdmg99[address] [place], [place] [address]Dr. Marlin Gonzalez LEUKOCYTES Negative Normal NEGATIVE [facility] Comment on above: Performed By: #### VIVIAN VAZQUEZ ####[facility] Qwkpgbzgmi4046[address] [place], [place] [address]Dr. Marlin Gonzalez Nitrite Ql (U) Negative Normal NEGATIVE [facility] Comment on above: Performed By: #### VIVIAN VAZQUEZ ####[facility] Qxcwtklvzu944[address] [place], [place] [address]Dr. Marlin Gonzalez pH (U) 6.0 [pH] Normal 5-9 [facility] Comment on above: Performed By: #### VIVIAN VAZQUEZ ####[facility] Ybuevwezpl[address] [place], [place] [address]Dr. Marlin Gonzalez Protein (U) [Mass/Vol] 100 mg/dL Abnormal NEGAT SHEA/ TRACE [facility] Comment on above: Performed By: #### VIVIAN VAZQUEZ ####[facility] Bmpafvdnbw[address] [place], [place] [address]Dr. Marlin Gonzalez SPEC GRAVITY 1.010 Normal 1.005-<=1.02 5 [facility] Comment on above: Performed By: #### VIVIAN VAZQUEZ ####[facility] Bdklnawuai5410 [place] [address]Dr. Marlin Gonzalez UR MICRO IND INDICATED Normal [facility] Comment on above: Performed By: #### VIVIAN VAZQUEZ ####[facility] Lqqpdkprat2607 [place] [address]Dr. Marlin Gonzalez Urobilinogen Qn (U) 0.2 {Ryan'U}/dL Normal 0.2 - 1. 0 [facility] Comment on above: Performed By: #### VIVIAN VAZQUEZ ####[facility] Ucbbsxkung6495 [place] [address]Dr. Marlin Gonzalez POINT OF CARE GLUCOSEon 10-12 Glucose [Mass/Vol] 165 mg/dL Critically high 74-106 [facility] Comment on above: Performed By: #### P OCGLUC ####[facility] Yyemhlyojw[address] [place], [place] [address]Dr. Marlin Gonzalez PROF 14(COMP METB)on 022 Albumin [Mass/Vol] 2.9 g/dL Critically low 3.4-5.0 [facility] Comment on above: Performed By: #### C FLOR ESCOBAR ####[facility] Uxoaenkrdt40[address] [place], [place] [address]Dr. Marlin Gonzalez Albumin/Globulin [Mass ratio] 0.9 {ratio} Normal [facility] Comment on above: Performed By: #### C SHAWN CMALUISA ####[facility] Ezywzjimzt7672 [place] [address]Dr. Marlin Gonzalez ALP [Catalytic activity/Vol] 118 U/L Critically high 46-116 [facility] Comment on above: Performed By: #### C SHAWN CMALUISA ####[facility] Mpshklscte4233 [place] [address]Dr. Marlin Gonzalez ALT [Catalytic activity/Vol] 49 U/L Normal 14-59 [facility] Comment on above: Performed By: #### C SHAWN, CMADM ####[facility] Rxxhrfdxts3359 [place] [address]Dr. Marlin Gonzalez Anion gap [Moles/Vol] 12.3 mmol/L Normal e [facility] Comment on above: Performed By: #### C SHAWN, FLOR ####[facility] Vxhqsofroe8723 [place] [address]Dr. Marlin Gonzalez AST [Catalytic activity/Vol] 28 U/L Normal 15-37 [facility] Comment on above: Performed By: #### C SHAWN, FLOR ####[facility] Nbodmtbnrd2581 [place] [address]Dr. Marlin Gonzalez Bilirubin [Mass/Vol] 0.4 mg/dL Normal 0.2-1.0 [facility] Comment on above: Performed By: #### C FLOR ESCOBAR ####[facility] Iqizdiiuby[address] [place], [place] [address]Dr. Marlin Gonzalez Calcium [Mass/Vol] 8.7 mg/dL Normal 8.5-10.1 [facility] Comment on above: Performed By: #### C FLOR ESCOBAR ####[facility] Nasxiymtzn632[address] [place], [place] [address]Dr. Marlin Gonzalez Chloride [Moles/Vol] 98 mmol/L Normal 98-107 [facility] Comment on above: Performed By: #### C FLOR ESCOBAR ####[facility] Qrkvuzjmfx984[address] [place], [place] [address]Dr. Marlin Gonzalez CO2 [Moles/Vol] 26.9 mmol/L Normal 21.0-32.0 [facility] Comment on above: Performed By: #### C FLOR ESCOBAR ####[facility] Ocrlqzcblt9[address] [place], [place] [address]Dr. Marlin Gonzalez Creatinine [Mass/Vol] 3.37 mg/dL Critically high 0.55-1.02 [facility] Comment on above: Performed By: #### C FLOR ESCOBAR ####[facility] Zupzrnwizt22[address] [place], [place] [address]Dr. Marlin Gonzalez EGFR-AF ARGENTINE 16 mL/min/1.73m2 Critically low >=60 [facility] Comment on above: Performed By: #### C FLOR ESCOBAR ####[facility] Kyauoygecy[address] [place], [place] [address]Dr. Marlin Gonzalez EGFR-NON AF ARGENTINE 13 mL/min/1.73m2 Critically low >=60 [facility] Comment on above: Performed By: #### C SHAWN, FLOR ####[facility] Uwxdwdwfsh8004 [place] [address]Dr. Marlin Gonzalez Globulin (S) [Mass/Vol] 3.4 g/dL Normal [facility] Comment on above: Performed By: #### C SHAWN, FLOR ####[facility] Oggvkenrha2059 [place] [address]Dr. Marlin Gonzalez Glucose [Mass/Vol] 144 mg/dL Critically high 74-106 [facility] Comment on above: Performed By: #### C SHAWN, FLOR ####[facility] Fmyqhabqre814[address] [place], [place] [address]Dr. Marlin Gonzalez Potassium [Moles/Vol] 4.2 mmol/L Normal 3.5-5.1 [facility] Comment on above: Performed By: #### C SHAWN, FLOR ####[facility] Ugsmjrodas3523 [place] [address]Dr. Marlin Gonzalez Protein [Mass/Vol] 6.3 g/dL Critically low 6.4-8.2 [facility] Comment on above: Performed By: #### C SHAWN, CMADM ####[facility] Qeirdwaslr5226 [place] [address]Dr. Marlin Gonzalez Sodium [Moles/Vol] 133 mmol/L Critically low 136-145 [facility] Comment on above: Performed By: #### C SHAWN, CMADM ####[facility] Exeuhdehvo0798 [place] [address]Dr. Marlin Gonzalez Urea nitrogen [Mass/Vol] 95.0 mg/dL Critically high 7.0-18.0 [facility] Comment on above: Performed By: #### C SHAWN, CMADM ####[facility] Ssqyvcafse[address] [place], [place] [address]Dr. Marlin Gonzalez Urea nitrogen/Creatinine [Mass ratio] 28.2 mg/mg Normal [facility] Comment on above: Performed By: #### C MP, CMADM ####[facility] Zppsyyymup989[address] [place], [place] [address]Dr. Marlin Gonzalez URINE MICROSCOPIC ONLYon BACTERIA NONE SEEN Normal NONE SEEN [facility] Comment on above: Performed By: #### El [place] UMICRO ####[facility] Cesfbgrgkg6496 [place] [address]Dr. Marlin Gonzalez Bacteria identified Cx Nom (U) NOT INDICATED Normal [facility] Comment on above: Performed By: #### [place] UMICRO ####[facility] Kgfandfnwq366[address] [place], [place] [address]Dr. Marlin Gonzalez CAST NONE SEEN Normal NONE SEEN [facility] Comment on above: Performed By: #### [place] UMICRO ####[facility] Bkizwilvru275[address] [place], [place] [address]Dr. Marlin Gonzalez Crystals LM Nom (Urine sed) NONE SEEN Normal NONE SEEN [facility] Comment on above: Performed By: #### [place] UMICRO ####[facility] Kxbdmvbeeg88[address] [place], [place] [address]Dr. Marlin Gonzalez Epithelial cells LM Ql (Urine sed) FEW Abnormal NONE SEEN /RARE [facility] Comment on above: Performed By: #### [place] UMICRO ####[facility] Buebuqdxae266[address] [place], [place] [address]Dr. Marlin Gonzalez MUCOUS NONE SEEN Normal NONE SEEN [facility] Comment on above: Performed By: #### STEPAN VAZQUEZICRO ####[facility] Jimgsrjwdn146[address] [place], [place] [address]Dr. Marlin Gonzalez RBC NONE SEEN Abnormal 0-2 [facility] Comment on above: Performed By: #### STEPAN VAZQUEZICRO ####[facility] Ijdrcmdrvi48[address] [place], [place] [address]Dr. Marlin Gonzalez WBC 0-2 Abnormal NONE SEEN [facility] Comment on above: Performed By: #### KANA VAZQUEZRO ####[facility] Dlddnggqmu87[address] [place], [place] [address]Dr. Marlin Gonzalez XR CHEST 1 Von 11-04-2021 XR CHEST 1 V Normal [facility] CBC AUTO DIFFon 10-21-2021 BASO # 0.0 103/ul Normal 0.0-0.1 [facility] Comment on above: Performed By: #### C BC ####[facility] Zcrabywbfv2023 [place] [address]Dr. Marlin Gonzalez Basophils/100 WBC (Bld) 0.1 % Critically low 0.2-2.0 [facility] Comment on above: Performed By: #### C BC ####[facility] Cwzxqkvdsq2379 [place] [address]Dr. Marlin Gonzalez EO # 0.0 103/ul Normal 0.0-0.7 [facility] Comment on above: Performed By: #### C BC ####[facility] Frvgzjutee4279 [place] [address]Dr. Marlin Gonzalez Eosinophils/100 WBC (Bld) 0.0 % Critically low 0.9-7.0 [facility] Comment on above: Performed By: #### C BC ####[facility] Kwxuhiptxu8070 [place] [address]Dr. Marlin Carlos Erythrocyte distribution width (RBC) [Ratio] 14.0 % Normal 11.0-15.0 [facility] Comment on above: Performed By: #### C BC ####[facility] Spobequzvl0032 [place] [address]Dr. Katherinearmando Carlos Hematocrit (Bld) [Volume fraction] 27.1 % Critically low 36.0-48.0 [facility] Comment on above: Performed By: #### C BC ####[facility] Xjjyuvnams5146 [place] [address]Dr. Marlin Gonzalez Hemoglobin (Bld) [Mass/Vol] 8.7 g/dL Critically low 12.0-16.0 [facility] Comment on above: Performed By: #### C BC ####[facility] Kstqhvxrub1673 [place] [address]Dr. Marlin Gonzalez IG # 0.08 10e3/ul Critically high 0.00-0.03 [facility] Comment on above: Performed By: #### C BC ####[facility] Dyouppvirf4362 [place] [address]DrLucia Marlin Carlos IG % 0.7 % Critically high 0.0-0.5 [facility] Comment on above: Performed By: #### C BC ####[facility] Dhjzyyizml9720 [place] [address]DrLucia Marlin Carlos LYMPH # 0.3 103/ul Critically low 1.2-3.8 [facility] Comment on above: Performed By: #### C BC ####[facility] Vllwywibcn9996 [place] [address]DrLucia Katherinearmando Gonzalez Lymphocytes/100 WBC (Bld) 2.8 % Critically low 20.5-60.0 [facility] Comment on above: Performed By: #### C BC ####[facility] Tommlbfvfw112[address] [place], [place] [address]DrLucia Katherinearmando Gonzalez MANUAL DIFF REQ NO Normal [facility] Comment on above: Performed By: #### C BC ####[facility] Qoguiytmqy4444 [place] [address]DrLucia Marlin Carlos MCH (RBC) [Entitic mass] 30.1 pg Normal 26.7-34.0 [facility] Comment on above: Performed By: #### C BC ####[facility] Pnubipohbh[address] [place], [place] [address]DrLucia Marlin Carlos MCHC (RBC) [Mass/Vol] 32.1 g/dL Normal 29.9-35.2 [facility] Comment on above: Performed By: #### C BC ####[facility] Ayhbibyioj7[address] [place], [place] [id number] Marlin Carlos MCV (RBC) [Entitic vol] 93.8 fL Normal 81.0-99.0 [facility] Comment on above: Performed By: #### C BC ####[facility] Vujuxspdfg1853 [place] [address]DrLucia Gonzalez MONO # 0.4 103/ul Normal 0.3-0.8 [facility] Comment on above: Performed By: #### C BC ####[facility] Cjspcvabtq6931 [place] [id number]. Marlin Gonzalez Monocytes/100 WBC (Bld) 3.5 % Normal 1.7-12.0 [facility] Comment on above: Performed By: #### C BC ####[facility] Ddukjkrjyp1928 [place] [id number]. Marlin Gonzalez NEUT # 10.7 103/ul Critically high 1.4-6.5 [facility] Comment on above: Performed By: #### C BC ####[facility] Rgwxlraubg[address] [place] [address]Dr. Marlin Gonzalez Neutrophils/100 WBC (Bld) 92.9 % Critically high 43.0-75.0 [facility] Comment on above: Performed By: #### C BC ####[facility] Eyrqcgnbyh750[address] [place] [address]Dr. Marlin Gonzalez Platelet mean volume (Bld) [Entitic vol] 9.5 fL Normal 9.5-13.5 [facility] Comment on above: Performed By: #### C BC ####[facility] Wgdyfwarko55[address] [place] [address]Dr. Marlin Gonzalez PLT 231 103/ul Normal 150-450 [facility] Comment on above: Performed By: #### C BC ####[facility] Naolqkruzr9591 [place] [address]Dr. Marlin Gonzalez RBC 2.89 106/ul Critically low 4.20-5.40 [facility] Comment on above: Performed By: #### C BC ####[facility] Ftxqdbpzzn1880 [place] [id number]. Marlin Gonzalez WBC 11.6 103/ul Critically high 4.0-11.0 The [facility] Comment on above: Performed By: #### C BC ####[facility] Apmbrofhle3790 [place] [id number] Marlin Carlos PROF CHEM 8 (BAS METB)on Anion gap [Moles/Vol] 16.2 mmol/L Normal Th [facility] Comment on above: Performed By: #### B MP ####[facility] Epgnazfoot67[address] [place] [address]Dr. Marlin Gonzalez Calcium [Mass/Vol] 8.7 mg/dL Normal 8.5-10.1 [facility] Comment on above: Performed By: #### B MP ####[facility] Vwfqqpjxff[address] [place], [place] [address]Dr. Marlin Gonzalez Chloride [Moles/Vol] 95 mmol/L Critically low 98-107 [facility] Comment on above: Performed By: #### B MP ####[facility] Lcihsgebyb[address] [place], [place] [address]Dr. Katherinearmando Carlos CO2 [Moles/Vol] 24.0 mmol/L Normal 21.0-32.0 [facility] Comment on above: Performed By: #### B MP ####[facility] Kiddbusexc[address] [place], [place] [address]Dr. Katherinearmando Carlos Creatinine [Mass/Vol] 2.90 mg/dL Critically high 0.55-1.02 [facility] Comment on above: Performed By: #### B MP ####[facility] Kzfcoumzzu[address] [place], [place] [address]Dr. Katherinearmando Carlos EGFR-AF ARGENTINE 19 mL/min/1.73m2 Critically low >=60 [facility] Comment on above: Performed By: #### B MP ####[facility] Rewzopabvd[address] [place], [place] [address]Dr. Katherinearmando Carlos EGFR-NON AF ARGENTINE 16 mL/min/1.73m2 Critically low >=60 [facility] Comment on above: Performed By: #### B MP ####[facility] Ncgkpexvgd238[address] [place], [place] [address]Dr. Marlin Gonzalez Glucose [Mass/Vol] 240 mg/dL Critically high 74-106 [facility] Comment on above: Performed By: #### B MP ####[facility] Xkihdqudac54[address] [place], [place] [address]Dr. Marlin Gonzalez Potassium [Moles/Vol] 4.2 mmol/L Normal 3.5-5.1 [facility] Comment on above: Performed By: #### B MP ####[facility] Turlieuqct147[address] [place], [place] [address]Dr. Marlin Gonzalez Sodium [Moles/Vol] 131 mmol/L Critically low 136-145 Th e [facility] Comment on above: Performed By: #### B MP ####[facility] Jrzgvxecdi595[address] [place], [place] [address]Dr. Marlin Gonzalez Urea nitrogen [Mass/Vol] 100.0 mg/dL Critically high 7.0-18.0 [facility] Comment on above: Performed By: #### B MP ####[facility] Tltlwnwmuf8[address] [place], [place] [address]Dr. Marlin Gonzalez Urea nitrogen/Creatinine [Mass ratio] 34.5 mg/mg Normal The [facility] Comment on above: Performed By: #### B MP ####[facility] Idcinkxtzi1983[address] [place], [place] [address]Dr. Marlin Gonzalez BNPon 10-20-2021 Natriuretic peptide B (Bld) [Mass/Vol] 59929.0 pg/mL Critically high <=900.0 [facility] Comment on above: Performed By: #### B A R COLLECTIONS REP ####[facility] Ympdzzucez969[address] [place], [place] [address]Dr. Marlin Gonzalez CBC AUTO DIFFon 10-20-2021 BASO # 0.0 103/ul Normal 0.0-0.1 [facility] Comment on above: Performed By: #### C BC ####[facility] Opoupjmrzp15[address] [place], [place] [address]Dr. Marlin Gonzalez Basophils/100 WBC (Bld) 0.0 % Critically low 0.2-2.0 The [facility] Comment on above: Performed By: #### C BC ####[facility] Hgrvgrbbjm43[address] [place], [place] [address]Dr. Marlin Gonzalez EO # 0.0 103/ul Normal 0.0-0.7 The [facility] Comment on above: Performed By: #### C BC ####[facility] Aqwgypyhdt495[address] [place] [address]Dr. Marlin Gonzalez Eosinophils/100 WBC (Bld) 0.0 % Critically low 0.9-7.0 [facility] Comment on above: Performed By: #### C BC ####[facility] Cixtyijkku299[address] [place], [place] [address]Dr. Marlin Gonzalez Erythrocyte distribution width (RBC) [Ratio] 14.3 % Normal 11.0-15.0 The [facility] Comment on above: Performed By: #### C BC ####[facility] Xglurzmenj734[address] [place], [place] [address]Dr. Marlin Gonzalez Hematocrit (Bld) [Volume fraction] 27.2 % Critically low 36.0-48.0 The [facility] Comment on above: Performed By: #### C BC ####[facility] Xdvcbocdjh97[address] [place], [place] [address]Dr. Marlin Gonzalez Hemoglobin (Bld) [Mass/Vol] 8.7 g/dL Critically low 12.0-16.0 [facility] Comment on above: Performed By: #### C BC ####[facility] Gkubdglhsd[address] [place], [place] [address]Dr. Marlin Gonzalez IG # 0.04 10e3/ul Critically high 0.00-0.03 The [facility] Comment on above: Performed By: #### C BC ####[facility] Opinoizaqu745[address] [place], [place] [address]Dr. Marlin Gonzalez IG % 0.6 % Critically high 0.0-0.5 The [facility] Comment on above: Performed By: #### C BC ####[facility] Iexkzmgzzs424[address] [place], [place] [address]Dr. Marlin Gonzalez LYMPH # 0.4 103/ul Critically low 1.2-3.8 The [facility] Comment on above: Performed By: #### C BC ####[facility] Bdeiugvrmt[address] [place], [place] [address]Dr. Marlin Gonzalez Lymphocytes/100 WBC (Bld) 5.2 % Critically low 20.5-60.0 [facility] Comment on above: Performed By: #### C BC ####[facility] Ypxosjmpmt6636 [place] [id number]. Marlin Gonzalez MANUAL DIFF REQ NO Normal [facility] Comment on above: Performed By: #### C BC ####[facility] Exmsjdpjkv2813 [place] [address]Dr. Marlin Gonzalez MCH (RBC) [Entitic mass] 30.2 pg Normal 26.7-34.0 [facility] Comment on above: Performed By: #### C BC ####[facility] Nxhoyjeoet9086 [place] [address]Dr. Marlin Gonzalez MCHC (RBC) [Mass/Vol] 32.0 g/dL Normal 29.9-35.2 [facility] Comment on above: Performed By: #### C BC ####[facility] Bkzpcmvqoc7[address] [place], [place] [address]Dr. Katherinearmando Gonzalez MCV (RBC) [Entitic vol] 94.4 fL Normal 81.0-99.0 [facility] Comment on above: Performed By: #### C BC ####[facility] Zslqoqezim[address] [place], [place] [address]Dr. Marlin Carlos MONO # 0.2 103/ul Critically low 0.3-0.8 [facility] Comment on above: Performed By: #### C BC ####[facility] Wiwciwyhdq636[address] [place], [place] [address]Dr. Marlin Gonzalez Monocytes/100 WBC (Bld) 2.6 % Normal 1.7-12.0 [facility] Comment on above: Performed By: #### C BC ####[facility] Hbxfteqvuz0789 [place] [address]Dr. Marlin Gonzalez NEUT # 6.3 103/ul Normal 1.4-6.5 [facility] Comment on above: Performed By: #### C BC ####[facility] Wlewvzxjgk95[address] [place], [place] [address]Dr. Marlin Gonzalez Neutrophils/100 WBC (Bld) 91.6 % Critically high 43.0-75.0 [facility] Comment on above: Performed By: #### C BC ####[facility] Oxkhakouhi0004 [place] [id number]. Marlin Gonzalez Platelet mean volume (Bld) [Entitic vol] 9.5 fL Normal 9.5-13.5 [facility] Comment on above: Performed By: #### C BC ####[facility] Zbxxtinnkh5756 [place] [id number]. Marlin Gonzalez PLT 229 103/ul Normal 150-450 [facility] Comment on above: Performed By: #### C BC ####[facility] Mthomrvtmc9781 [place] [phone]. Marlin Gonzalez RBC 2.88 106/ul Critically low 4.20-5.40 [facility] Comment on above: Performed By: #### C BC ####[facility] Dxdqzpjqkg3790 [place] [id number]. Marlin Gonzalez WBC 6.9 103/ul Normal 4.0-11.0 [facility] Comment on above: Performed By: #### C BC ####[facility] Ufquqfdnju7722 [place] [id number]. Marlin Gonzalez POINT OF CARE GLUCOSEon 10-11-2021 Glucose [Mass/Vol] 254 mg/dL Critically high 74-106 [facility] Comment on above: Performed By: #### P OCGLUC ####[facility] Zoozkypghc3338 [place] [phone]. Marlin Gonzalez Glucose [Mass/Vol] 331 mg/dL Critically high 74-106 [facility] Comment on above: Performed By: #### P OCGLUC ####[facility] Aitwjsspdu0341 [place] [id number]. Marlin Gonzalez Glucose [Mass/Vol] 429 mg/dL Critically high -106 [facility] Comment on above: Performed By: #### P OCGLUC ####[facility] Ihzhdqoalh7742 [place] [address]Dr. Marlin Gonzalez Glucose [Mass/Vol] 412 mg/dL Critically high -106 [facility] Comment on above: Performed By: #### P OCGLUC ####[facility] Csapblcbgv1849 [place] [id number]. Marlin Gonzalez PROF CHEM 8 (BAS METB)on Anion gap [Moles/Vol] 16.3 mmol/L Normal Th [facility] Comment on above: Performed By: #### B MP ####[facility] Skthykzldy1937 [place] [address]Dr. Marlin Gonzalez Calcium [Mass/Vol] 8.8 mg/dL Normal 8.5-10.1 [facility] Comment on above: Performed By: #### B MP ####[facility] Rraezsxovc7614 [place] [address]Dr. Marlin Gonzalez Chloride [Moles/Vol] 95 mmol/L Critically low 98-107 [facility] Comment on above: Performed By: #### B MP ####[facility] Vljechqpei1974[address] [place], [place] [address]Dr. Marlin Gonzalez CO2 [Moles/Vol] 22.6 mmol/L Normal 21.0-32.0 [facility] Comment on above: Performed By: #### B MP ####[facility] Ujgtoksirx14[address] [place], [place] [address]Dr. Marlin Gonzalez Creatinine [Mass/Vol] 2.96 mg/dL Critically high 0.55-1.02 [facility] Comment on above: Performed By: #### B MP ####[facility] Cmcslvmujg[address] [place], [place] [address]Dr. Marlin Gonzalez EGFR-AF ARGENTINE 19 mL/min/1.73m2 Critically low >=60 [facility] Comment on above: Performed By: #### B MP ####[facility] Mepwazvmzy4952 [place] [address]Dr. Marlin Gonzalez EGFR-NON AF ARGENTINE 15 mL/min/1.73m2 Critically low >=60 [facility] Comment on above: Performed By: #### B MP ####[facility] Temrugyizv12[address] [place], [place] [address]Dr. Marlin Gonzalez Glucose [Mass/Vol] 389 mg/dL Critically high 74-106 [facility] Comment on above: Performed By: #### B MP ####[facility] Csdrycmlte2281 [place] [address]Dr. Marlin Carlos Potassium [Moles/Vol] 3.9 mmol/L Normal 3.5-5.1 [facility] Comment on above: Performed By: #### B MP ####[facility] Vdooizpvob3545 [place] [address]Dr. Marlin Gonzalez Sodium [Moles/Vol] 130 mmol/L Critically low 136-145 [facility] Comment on above: Performed By: #### B MP ####[facility] Bihigjosqh2128[address] [place], [place] [address]Dr. Marlin Carlos Urea nitrogen [Mass/Vol] 87.0 mg/dL Critically high 7.0-18.0 [facility] Comment on above: Performed By: #### B MP ####[facility] Yiwysxiati01[address] [place], [place] [address]Dr. Marlin Gonzalez Urea nitrogen/Creatinine [Mass ratio] 29.4 mg/mg Normal [facility] Comment on above: Performed By: #### B MP ####[facility] Iofioqjkuk47[address] [place], [place] [address]Dr. Marlin Carlos XR CHEST 2 Von 10-20-2021 XR CHEST 2 V Normal [facility] BNPon 10-19-2021 Natriuretic peptide B (Bld) [Mass/Vol] 01953.0 pg/mL Critically high <=900.0 [facility] Comment on above: Performed By: #### B A R COLLECTIONS REP, HSTROPN, CMP ####[facility] Vvwgyipghy270[address] [place], [place] [address]Dr. Marlin Carlos CBC AUTO DIFFon 10-19-2021 BASO # 0.1 103/ul Normal 0.0-0.1 [facility] Comment on above: Performed By: #### C BC ####[facility] Hxwifetgwq86[address] [place], [place] [address]Dr. Marlin Gonzalez Basophils/100 WBC (Bld) 0.4 % Normal 0.2-2.0 [facility] Comment on above: Performed By: #### C BC ####[facility] Gtelgkiwjj7574 [place] [id number]. Marlin Gonzalez EO # 0.4 103/ul Normal 0.0-0.7 [facility] Comment on above: Performed By: #### C BC ####[facility] Bgrdiylbdp1214 [place] [id number]. Marlin Gonzalez Eosinophils/100 WBC (Bld) 2.6 % Normal 0.9-7.0 [facility] Comment on above: Performed By: #### C BC ####[facility] Dpxchuztlr968[address] [place], [place] [address]Dr. Marlin Gonzalez Erythrocyte distribution width (RBC) [Ratio] 14.6 % Normal 11.0-15.0 [facility] Comment on above: Performed By: #### C BC ####[facility] Uqbuzclxrq1985[address] [place], [place] [address]Dr. Marlin Gonzalez Hematocrit (Bld) [Volume fraction] 31.4 % Critically low 36.0-48.0 [facility] Comment on above: Performed By: #### C BC ####[facility] Vewrryiekz850[address] [place], [place] [address]Dr. Marlin Gonzalez Hemoglobin (Bld) [Mass/Vol] 10.0 g/dL Critically low 12.0-16.0 [facility] Comment on above: Performed By: #### C BC ####[facility] Bezyeoqdqi[address] [place], [place] [address]Dr. Marlin Gonzalez IG # 0.07 10e3/ul Critically high 0.00-0.03 [facility] Comment on above: Performed By: #### C BC ####[facility] Gvpyokyflz3843[address] [place], [place] [address]Dr. Marlin Gonzalez IG % 0.5 % Normal 0.0-0.5 [facility] Comment on above: Performed By: #### C BC ####[facility] Gbcniazzia75[address] [place], [place] [address]Dr. Marlin Gonzalez LYMPH # 1.4 103/ul Normal 1.2-3.8 [facility] Comment on above: Performed By: #### C BC ####[facility] Llaadwijim5[address] [place] [address]Dr. Marlin Carlos Lymphocytes/100 WBC (Bld) 10.1 % Critically low 20.5-60.0 [facility] Comment on above: Performed By: #### C BC ####[facility] Pjunfkryvw1941 [place] [address]Dr. Marlin Gonzalez MANUAL DIFF REQ NO Normal [facility] Comment on above: Performed By: #### C BC ####[facility] Jqahngpvds6627 [place] [address]Dr. Katherinearmando Gonzalez MCH (RBC) [Entitic mass] 30.5 pg Normal 26.7-34.0 [facility] Comment on above: Performed By: #### C BC ####[facility] Yqacjcclyb[address] [place], [place] [address]Dr. Marlin Gonzalez MCHC (RBC) [Mass/Vol] 31.8 g/dL Normal 29.9-35.2 [facility] Comment on above: Performed By: #### C BC ####[facility] Tntqbhysrt9[address] [place], [place] [address]Dr. Katherinearmando Gonzalez MCV (RBC) [Entitic vol] 95.7 fL Normal 81.0-99.0 [facility] Comment on above: Performed By: #### C BC ####[facility] Mdriufuwea264[address] [place], [place] [address]Dr. Marlin Gonzalez MONO # 1.2 103/ul Critically high 0.3-0.8 [facility] Comment on above: Performed By: #### C BC ####[facility] Qmwhmmmxrs023[address] [place], [place] [address]Dr. Marlin Gonzalez Monocytes/100 WBC (Bld) 9.0 % Normal 1.7-12.0 [facility] Comment on above: Performed By: #### C BC ####[facility] Grvflpkdqs045[address] [place], [place] [address]Dr. Marlin Gonzalez NEUT # 10.5 103/ul Critically high 1.4-6.5 [facility] Comment on above: Performed By: #### C BC ####[facility] Anhsynqjsz4520 [place] [id number]. Marlin Gonzalez Neutrophils/100 WBC (Bld) 77.4 % Critically high 43.0-75.0 [facility] Comment on above: Performed By: #### C BC ####[facility] Vejncrhpzr1840 [place] [id number]. Marlin Gonzalez Platelet mean volume (Bld) [Entitic vol] 9.7 fL Normal 9.5-13.5 [facility] Comment on above: Performed By: #### C BC ####[facility] Aiblsejjqw3213 [place] [id number]. Marlin Gonzalez PLT 291 103/ul Normal 150-450 [facility] Comment on above: Performed By: #### C BC ####[facility] Wamnuzfntk9256 [place] [phone]. Marlin Gonzalez RBC 3.28 106/ul Critically low 4.20-5.40 [facility] Comment on above: Performed By: #### C BC ####[facility] Dpafjpckgs4415 [place] [phone]. Marlin Gonzalez WBC 13.5 103/ul Critically high 4.0-11.0 [facility] Comment on above: Performed By: #### C BC ####[facility] Nazojcause3699 [place] [phone]. Marlin Gonzalez CULTURE BLOODon 10-19-2021 Microscopic examination of blood, culture Culture Observations: NO GROWTH AT 5 DAYS. Normal [facility] Comment on above: Performed By: #### B LDCX2 ####[facility] Gzusmdqwfo2946 [place] [id number]. Marlin Gonzalez Microscopic examination of blood, culture Culture Observations: NO GROWTH AT 5 DAYS. Normal [facility] Comment on above: Performed By: #### B LDCX1 ####[facility] Iigvxgzkfg3705 [place] [id number]. Marlin Carlos Covid-19 PCR (CVDTB)on SARS-CoV-2 (COVID-19) RNA [place]+probe Ql (Unsp spec) Not detected Normal NOT DETECTED [facility] Comment on above: Result Comment: When [...] for this test is supported by the [place] of Health and Human Service's declaration that [...] be used). Performed By: #### C VDTBH ####[facility] Wvcnmqtits[address] [place], [place] [address]Dr. Marlin Gonzalez ECHO LIMITED STUDYon 022 ECHO LIMITED STUDY Normal [facility] POINT OF CARE GLUCOSEon Glucose [Mass/Vol] 267 mg/dL Critically high 74-106 [facility] Comment on above: Performed By: #### P OCGLUC ####[facility] Ahthlpfmch[address] [place], [place] [address]DrLucia Gonzalez Glucose [Mass/Vol] 243 mg/dL Critically high 74-106 [facility] Comment on above: Performed By: #### P OCGLUC ####[facility] Qkclgktnsx11[address] [place], [place] [address]Dr. Marlin Gonzalez PROF 14(COMP METB)on 022 Albumin [Mass/Vol] 3.4 g/dL Normal 3.4-5.0 [facility] Comment on above: Performed By: #### B A R COLLECTIONS REP, HSTROPN, CMP ####[facility] Hfzlhxropz4567 [place] [address]DrLucia Gonzalez Albumin/Globulin [Mass ratio] 0.9 {ratio} Normal [facility] Comment on above: Performed By: #### B A R COLLECTIONS REP, HSTROPN, CMP ####[facility] Ywxhkieaku3924 [place] [address]Dr. Marlin Gonzalez ALP [Catalytic activity/Vol] 126 U/L Critically high 46-116 [facility] Comment on above: Performed By: #### B A R COLLECTIONS REP, HSTROPN, CMP ####[facility] Upjfshmxjo93[address] [place] [address]Dr. Marlin Gonzalez ALT [Catalytic activity/Vol] 45 U/L Normal 14-59 [facility] Comment on above: Performed By: #### B A R COLLECTIONS REP, HSTROPN, CMP ####[facility] Sawkzugzga24[address] [place] [address]Dr. Marlin Gonzalez Anion gap [Moles/Vol] 18.0 mmol/L Normal [facility] Comment on above: Performed By: #### B A R COLLECTIONS REP, HSTROPN, CMP ####[facility] Lvjlpkeuzx[address] [place], [place] [address]Dr. Katherinearmando Gonzalez AST [Catalytic activity/Vol] 24 U/L Normal 15-37 [facility] Comment on above: Performed By: #### B A R COLLECTIONS REP, HSTROPN, CMP ####[facility] Wjjlzkevhz66[address] [place], [place] [address]Dr. Marlin Gonzalez Bilirubin [Mass/Vol] 0.4 mg/dL Normal 0.2-1.0 [facility] Comment on above: Performed By: #### B A R COLLECTIONS REP, HSTROPN, CMP ####[facility] Kexlctrvcv[address] [place], [place] [address]Dr. Marlin Gonzalez Calcium [Mass/Vol] 9.4 mg/dL Normal 8.5-10.1 [facility] Comment on above: Performed By: #### B A R COLLECTIONS REP, HSTROPN, CMP ####[facility] Fxgggclulm32[address] [place] [address]Dr. Marlin Gonzalez Chloride [Moles/Vol] 97 mmol/L Critically low 98-107 [facility] Comment on above: Performed By: #### B A R COLLECTIONS REP, HSTROPN, CMP ####[facility] Sqagqooial37[address] [place] [address]Dr. Marlin Gonzalez CO2 [Moles/Vol] 24.0 mmol/L Normal 21.0-32.0 [facility] Comment on above: Performed By: #### B A R COLLECTIONS REP, HSTROPN, CMP ####[facility] Wehdwjxiqb2754 [place] [address]Dr. Marlin Gonzalez Creatinine [Mass/Vol] 2.83 mg/dL Critically high 0.55-1.02 [facility] Comment on above: Performed By: #### B A R COLLECTIONS REP, HSTROPN, CMP ####[facility] Pjst[address]owxx[address] [place], [place] [address]Dr. Marlin Gonzalez EGFR-AF ARGENTINE 20 mL/min/1.73m2 Critically low >=60 [facility] Comment on above: Performed By: #### B A R COLLECTIONS REP, HSTROPN, CMP ####[facility] Wmrhfzjqgx[address] [place], [place] [address]Dr. Marlin Gonzalez EGFR-NON AF ARGENTINE 16 mL/min/1.73m2 Critically low >=60 [facility] Comment on above: Performed By: #### B A R COLLECTIONS REP, HSTROPN, CMP ####[facility] Wabrpwykyh[address] [place], [place] [address]Dr. Marlin Gonzalez Globulin (S) [Mass/Vol] 3.7 g/dL Normal [facility] Comment on above: Performed By: #### B A R COLLECTIONS REP, HSTROPN, CMP ####[facility] Xzzzirvjmp[address] [place], [place] [address]Dr. Marlin Gonzalez Glucose [Mass/Vol] 90 mg/dL Normal 74-106 [facility] Comment on above: Performed By: #### B A R COLLECTIONS REP, HSTROPN, CMP ####[facility] Hmzvfmjreh[address] [place], [place] [address]Dr. Marlin Gonzalez Potassium [Moles/Vol] 4.0 mmol/L Normal 3.5-5.1 [facility] Comment on above: Performed By: #### B A R COLLECTIONS REP, HSTROPN, CMP ####[facility] Tfujpwmtmy0933 [place] [id number]. Marlin Gonzalez Protein [Mass/Vol] 7.1 g/dL Normal 6.4-8.2 [facility] Comment on above: Performed By: #### B A R COLLECTIONS REP, HSTROPN, CMP ####[facility] Yvdvenifyl1459 [place] [address]Dr. Katherinearmando Gonzalez Sodium [Moles/Vol] 135 mmol/L Critically low 136-145 [facility] Comment on above: Performed By: #### B A R COLLECTIONS REP, HSTROPN, CMP ####[facility] Dpadguxdap2859 [place] [address]Dr. Marlin Gonzalez Urea nitrogen [Mass/Vol] 81.0 mg/dL Critically high 7.0-18.0 [facility] Comment on above: Performed By: #### B A R COLLECTIONS REP, HSTROPN, CMP ####[facility] Urrurxrlhn2724 [place] [address]Dr. Marlin Gonzalez Urea nitrogen/Creatinine [Mass ratio] 28.6 mg/mg Normal [facility] Comment on above: Performed By: #### B A R COLLECTIONS REP, HSTROPN, CMP ####[facility] Rzqfebewoz3362 [place] [address]Dr. Marlin Gonzalez TROPONIN, HIGH SENSITIVITYon 10-19-2021 HSTROP 23.7 pg/mL Normal 4.0-51.3 [facility] Comment on above: Result Comment: CUT- OFF POINTS HAVE BEEN ESTABLISHED BASED ON THE FOURTH UNIVERSAL DEFINITIONS OF MYOCARDIALINFARCTION. THE UPPER REFERENCE LIMIT (URL) OF TROPONIN, DEFINED THE 99TH PERCENTILE OFcTnI DISTRIBUTION IN A REFERENCE POPULATION, HAS BEEN CONFIRMED THE DECISION THRESHOLDFOR CT DIAGNOSIS. Performed By: #### B A R COLLECTIONS REP, HSTROPN, CMP ####[facility] Mophtzojkb0334 [place] [address]Dr. Marlin Gonzalez XR CHEST 1 Von 10-19-2021 XR CHEST 1 V Normal [facility] BNPon 09-02-2021 Natriuretic peptide B (Bld) [Mass/Vol] 81231.0 pg/mL Critically high <=900.0 [facility] Comment on above: Performed By: #### B A R COLLECTIONS REP, CMP ####[facility] Uowiwxjktn[address] [place], [place] [address]Dr. Marlin Carlos CBC AUTO DIFFon 09-02-2021 BASO # 0.0 103/ul Normal 0.0-0.1 [facility] Comment on above: Performed By: #### C BC ####[facility] Kakjprxxoo83[address] [place], [place] [address]Dr. Marlin Gonzalez Basophils/100 WBC (Bld) 0.0 % Critically low 0.2-2.0 [facility] Comment on above: Performed By: #### C BC ####[facility] Ypqzaegltw[address] [place], [place] [address]Dr. Marlin Gonzalez EO # 0.0 103/ul Normal 0.0-0.7 [facility] Comment on above: Performed By: #### C BC ####[facility] Vsuuotcmei[address] [place], [place] [address]Dr. Marlin Gonzalez Eosinophils/100 WBC (Bld) 0.0 % Critically low 0.9-7.0 [facility] Comment on above: Performed By: #### C BC ####[facility] Ymnivikxsr18[address] [place], [place] [address]Dr. Marlin Gonzalez Erythrocyte distribution width (RBC) [Ratio] 14.3 % Normal 11.0-15.0 [facility] Comment on above: Performed By: #### C BC ####[facility] Ezwbqejgby00[address] [place], [place] [address]Dr. Marlin Gonzalez Hematocrit (Bld) [Volume fraction] 32.3 % Critically low 36.0-48.0 [facility] Comment on above: Performed By: #### C BC ####[facility] Kepvqnueay[address] [place], [place] [address]Dr. Marlin Gonzalez Hemoglobin (Bld) [Mass/Vol] 10.2 g/dL Critically low 12.0-16.0 [facility] Comment on above: Performed By: #### C BC ####[facility] Fwsndobsko[address] [place], [place] [address]Dr. Marlin Gonzalez IG # 0.06 10e3/ul Critically high 0.00-0.03 [facility] Comment on above: Performed By: #### C BC ####[facility] Wfaisdahqn7707 [place] [address]DrLucia Gonzalez IG % 0.5 % Normal 0.0-0.5 [facility] Comment on above: Performed By: #### C BC ####[facility] Zvbmxscajk9[address] [place], [place] [address]DrLucia Gonzalez LYMPH # 1.0 103/ul Critically low 1.2-3.8 [facility] Comment on above: Performed By: #### C BC ####[facility] Wrxfuknzlm[address] [place], [place] [address]DrLucia Gonzalez Lymphocytes/100 WBC (Bld) 8.6 % Critically low 20.5-60.0 [facility] Comment on above: Performed By: #### C BC ####[facility] Uiwhcshcju40[address] [place], [place] [address]DrLucia Gonzalez MANUAL DIFF REQ NO Normal [facility] Comment on above: Performed By: #### C BC ####[facility] Sgtjxrqozp2029[address] [place], [place] [address]DrLucia Gonzalez MCH (RBC) [Entitic mass] 29.4 pg Normal 26.7-34.0 [facility] Comment on above: Performed By: #### C BC ####[facility] Uhghmrrzul[address] [place], [place] [address]DrLucia Gonzalez MCHC (RBC) [Mass/Vol] 31.6 g/dL Normal 29.9-35.2 [facility] Comment on above: Performed By: #### C BC ####[facility] Mwmerubglk00[address] [place], [place] [address]DrLucia Gonzalez MCV (RBC) [Entitic vol] 93.1 fL Normal 81.0-99.0 [facility] Comment on above: Performed By: #### C BC ####[facility] Ytcvocyfxl1694[address] [place], [place] [address]DrLucia Gonzalez MONO # 0.8 103/ul Normal 0.3-0.8 [facility] Comment on above: Performed By: #### C BC ####[facility] Euzyoiatxv9103 [place] [address]Dr. Marlin Gonzalez Monocytes/100 WBC (Bld) 7.5 % Normal 1.7-12.0 [facility] Comment on above: Performed By: #### C BC ####[facility] Iqrlohkwbo3928 [place] [address]Dr. Marlin Gonzalez NEUT # 9.3 103/ul Critically high 1.4-6.5 [facility] Comment on above: Performed By: #### C BC ####[facility] Vowirsmgof0158 [place] [address]Dr. Marlin Gonzalez Neutrophils/100 WBC (Bld) 83.4 % Critically high 43.0-75.0 [facility] Comment on above: Performed By: #### C BC ####[facility] Hycxcmuqms[address] [place], [place] [address]Dr. Marlin Gonzalez Platelet mean volume (Bld) [Entitic vol] 9.9 fL Normal 9.5-13.5 [facility] Comment on above: Performed By: #### C BC ####[facility] Quymjowwwi7359 [place] [address]Dr. Marlin Gonzalez PLT 247 103/ul Normal 150-450 [facility] Comment on above: Performed By: #### C BC ####[facility] Rkhbzwpisk1052 [place] [address]Dr. Marlin Gonzalez RBC 3.47 106/ul Critically low 4.20-5.40 [facility] Comment on above: Performed By: #### C BC ####[facility] Lblhswtzyk8622 [place] [address]Dr. Marlin Gonzalez WBC 11.2 103/ul Critically high 4.0-11.0 [facility] Comment on above: Performed By: #### C BC ####[facility] Agkvsqvtyt7257 [place] [address]DrLucia Marlin Gonzalez POINT OF CARE GLUCOSEon 07-2 Glucose [Mass/Vol] 175 mg/dL Critically high 74-106 [facility] Comment on above: Performed By: #### P OCGLUC ####[facility] Ljkdkixtze728[address] [place], [place] [address]Dr. Marlin Gonzalez Glucose [Mass/Vol] 73 mg/dL Critically low 74-106 [facility] Comment on above: Performed By: #### P OCGLUC ####[facility] Eyhvacpqal34[address] [place], [place] [address]Dr. Marlin Gonzalez Glucose [Mass/Vol] 70 mg/dL Critically low 74-106 [facility] Comment on above: Performed By: #### P OCGLUC ####[facility] Hfzybjixrx95[address] [place], [place] [address]Dr. Marlin Gonzalez PROF 14(COMP METB)on 022 Albumin [Mass/Vol] 3.0 g/dL Critically low 3.4-5.0 [facility] Comment on above: Performed By: #### B A R COLLECTIONS REP, CMP ####[facility] Oafhnszxev0914[address] [place], [place] [address]Dr. Marlin Gonzalez Albumin/Globulin [Mass ratio] 0.9 {ratio} Normal [facility] Comment on above: Performed By: #### B A R COLLECTIONS REP, CMP ####[facility] Ckvncdztje9636[address] [place], [place] [address]Dr. Marlin Gonzalez ALP [Catalytic activity/Vol] 90 U/L Normal 46-116 [facility] Comment on above: Performed By: #### B A R COLLECTIONS REP, CMP ####[facility] Olvhsyhpuo15[address] [place], [place] [address]Dr. Marlin Gonzalez ALT [Catalytic activity/Vol] 43 U/L Normal 14-59 [facility] Comment on above: Performed By: #### B A R COLLECTIONS REP, CMP ####[facility] Qinkwlrfuh7783[address] [place], [place] [address]Dr. Marlin Gonzalez Anion gap [Moles/Vol] 13.0 mmol/L Normal [facility] Comment on above: Performed By: #### B A R COLLECTIONS REP, CMP ####[facility] Cebuwvcdcl[address] [place], [place] [address]Dr. Marlin Goznalez AST [Catalytic activity/Vol] 24 U/L Normal 15-37 [facility] Comment on above: Performed By: #### B A R COLLECTIONS REP, CMP ####[facility] Vclcusmngw7232[address] [place], [place] [address]Dr. Marlin Gonzalez Bilirubin [Mass/Vol] 0.2 mg/dL Normal 0.2-1.0 [facility] Comment on above: Performed By: #### B A R COLLECTIONS REP, CMP ####[facility] Xdofbnqhek434[address] [place], [place] [address]Dr. Marlin Gonzalez Calcium [Mass/Vol] 8.9 mg/dL Normal 8.5-10.1 [facility] Comment on above: Performed By: #### B A R COLLECTIONS REP, CMP ####[facility] Daikcglpgp9953[address] [place], [place] [address]Dr. Marlin Gonzalez Chloride [Moles/Vol] 100 mmol/L Normal 98-107 [facility] Comment on above: Performed By: #### B A R COLLECTIONS REP, CMP ####[facility] Ohsxkzkoum428[address] [place], [place] [address]Dr. Marlin Gonzalez CO2 [Moles/Vol] 24.3 mmol/L Normal 21.0-32.0 [facility] Comment on above: Performed By: #### B A R COLLECTIONS REP, CMP ####[facility] Dzdkqecryc069[address] [place], [place] [address]Dr. Marlin Gonzalez Creatinine [Mass/Vol] 3.25 mg/dL Critically high 0.55-1.02 [facility] Comment on above: Performed By: #### B A R COLLECTIONS REP, CMP ####[facility] Whyyodmwvh026[address] [place], [place] [address]Dr. Marlin Gonzalez EGFR-AF ARGENTINE 17 mL/min/1.73m2 Critically low >=60 [facility] Comment on above: Performed By: #### B A R COLLECTIONS REP, CMP ####[facility] Rxntpgqqoo495[address] [place], [place] [address]Dr. Marlin Gonzalez EGFR-NON AF ARGENTINE 14 mL/min/1.73m2 Critically low >=60 [facility] Comment on above: Performed By: #### B A R COLLECTIONS REP, CMP ####[facility] Lqehnahtps1058[address] [place], [place] [address]Dr. Marlin Gonzalez Globulin (S) [Mass/Vol] 3.4 g/dL Normal [facility] Comment on above: Performed By: #### B A R COLLECTIONS REP, CMP ####[facility] Rbiqjrunmz2698[address] [place], [place] [address]Dr. Marlin Gonzalez Glucose [Mass/Vol] 98 mg/dL Normal 74-106 [facility] Comment on above: Performed By: #### B A R COLLECTIONS REP, CMP ####[facility] Qrfhsrxocs648[address] [place], [place] [address]Dr. Marlin Gonzalez Potassium [Moles/Vol] 4.3 mmol/L Normal 3.5-5.1 [facility] Comment on above: Performed By: #### B A R COLLECTIONS REP, CMP ####[facility] Gawpqacogg5435[address] [place], [place] [address]Dr. Marlin Gonzalez Protein [Mass/Vol] 6.4 g/dL Normal 6.4-8.2 [facility] Comment on above: Performed By: #### B A R COLLECTIONS REP, CMP ####[facility] Rfwkjaolpd8[address] [place], [place] [address]Dr. Marlin Gonzalez Sodium [Moles/Vol] 133 mmol/L Critically low 136-145 [facility] Comment on above: Performed By: #### B A R COLLECTIONS REP, CMP ####[facility] Akxvdxszwm964[address] [place], [place] [address]Dr. Marlin Gonzalez Urea nitrogen [Mass/Vol] 80.0 mg/dL Critically high 7.0-18.0 [facility] Comment on above: Performed By: #### B A R COLLECTIONS REP, CMP ####[facility] Rcfybojkcm1997[address] [place], [place] [address]Dr. Marlin Gonzalez Urea nitrogen/Creatinine [Mass ratio] 24.6 mg/mg Normal [facility] Comment on above: Performed By: #### B A R COLLECTIONS REP, CMP ####[facility] Eopfqnhuik16[address] [place], [place] [address]Dr. Marlin Gonzalez BNPon 09-01-2021 Natriuretic peptide B (Bld) [Mass/Vol] 09567.0 pg/mL Critically high <=900.0 [facility] Comment on above: Performed By: #### C MP, BNP ####[facility] Jsehfhrzis7926 [place] [address]Dr. Marlin Gonzalez CBC AUTO DIFFon 09-01-2021 BASO # 0.0 103/ul Normal 0.0-0.1 [facility] Comment on above: Performed By: #### C BC ####[facility] Gefbevocrs[address]67[address] [place], [place] [address]Dr. Marlin Carlos Basophils/100 WBC (Bld) 0.0 % Critically low 0.2-2.0 [facility] Comment on above: Performed By: #### C BC ####[facility] Kyulffeafx3768[address] [place], [place] [address]Dr. Marlin Gonzalez EO # 0.0 103/ul Normal 0.0-0.7 [facility] Comment on above: Performed By: #### C BC ####[facility] Noeeiimxzo836[address] [place], [place] [address]Dr. Marlin Carlos Eosinophils/100 WBC (Bld) 0.0 % Critically low 0.9-7.0 [facility] Comment on above: Performed By: #### C BC ####[facility] Mvrxsgwzut2727[address] [place], [place] [address]Dr. Marlin Gonzalez Erythrocyte distribution width (RBC) [Ratio] 14.5 % Normal 11.0-15.0 [facility] Comment on above: Performed By: #### C BC ####[facility] Oiymcvvcfs096[address] [place], [place] [address]Dr. Marlin Gonzalez Hematocrit (Bld) [Volume fraction] 31.3 % Critically low 36.0-48.0 [facility] Comment on above: Performed By: #### C BC ####[facility] Aivjvpdifr876[address] [place], [place] [address]Dr. Marlin Gonzalez Hemoglobin (Bld) [Mass/Vol] 9.9 g/dL Critically low 12.0-16.0 [facility] Comment on above: Performed By: #### C BC ####[facility] Reyuyiseyf7791 [place] [address]Dr. Marlin Gonzalez IG # 0.02 10e3/ul Normal 0.00-0.03 [facility] Comment on above: Performed By: #### C BC ####[facility] Vjoxfnbdbu5694 [place] [address]Dr. Marlin Gonzalez IG % 0.4 % Normal 0.0-0.5 [facility] Comment on above: Performed By: #### C BC ####[facility] Bcxxkrqtys[address] [place], [place] [address]DrLucia Marlin Carlos LYMPH # 0.5 103/ul Critically low 1.2-3.8 [facility] Comment on above: Performed By: #### C BC ####[facility] Srnlkhujhy022[address] [place], [place] [address]DrLucia Marlin Carlos Lymphocytes/100 WBC (Bld) 9.4 % Critically low 20.5-60.0 [facility] Comment on above: Performed By: #### C BC ####[facility] Kylaldnrpq689[address] [place], [place] [address]DrLucia Marlin Carlos MANUAL DIFF REQ NO Normal [facility] Comment on above: Performed By: #### C BC ####[facility] Yneaqkffzj100[address] [place], [place] [address]DrLucia Marlin Gonzalez MCH (RBC) [Entitic mass] 29.9 pg Normal 26.7-34.0 [facility] Comment on above: Performed By: #### C BC ####[facility] Fklbpfdsng[address] [place], [place] [address]DrLucia Marlin Gonzalez MCHC (RBC) [Mass/Vol] 31.6 g/dL Normal 29.9-35.2 [facility] Comment on above: Performed By: #### C BC ####[facility] Towrqfbufx708[address] [place], [place] [address]DrLucia Marlin Carlos MCV (RBC) [Entitic vol] 94.6 fL Normal 81.0-99.0 [facility] Comment on above: Performed By: #### C BC ####[facility] Vcwaemvhdx[address] [place], [place] [address]Dr. Marlin Gonzalez MONO # 0.1 103/ul Critically low 0.3-0.8 [facility] Comment on above: Performed By: #### C BC ####[facility] Lwdkhdqyzb7107 [place] [address]Dr. Marlin Gonzalez Monocytes/100 WBC (Bld) 2.3 % Normal 1.7-12.0 [facility] Comment on above: Performed By: #### C BC ####[facility] Lpefqkexiz9357 [place] [address]Dr. Marlin Gonzalez NEUT # 4.2 103/ul Normal 1.4-6.5 [facility] Comment on above: Performed By: #### C BC ####[facility] Vwouegrejv1749 [place] [address]Dr. Malrin Gonzalez Neutrophils/100 WBC (Bld) 87.9 % Critically high 43.0-75.0 [facility] Comment on above: Performed By: #### C BC ####[facility] Ficibbcjwu[address] [place], [place] [address]Dr. Marlin Gonzalez Platelet mean volume (Bld) [Entitic vol] 9.9 fL Normal 9.5-13.5 [facility] Comment on above: Performed By: #### C BC ####[facility] Znjnzlvhdh[address] [place], [place] [address]Dr. Marlin Gonzalez PLT 226 103/ul Normal 150-450 [facility] Comment on above: Performed By: #### C BC ####[facility] Twcsdcmmiq288[address] [place], [place] [address]Dr. Marlin Gonzalez RBC 3.31 106/ul Critically low 4.20-5.40 [facility] Comment on above: Performed By: #### C BC ####[facility] Qhtbaagchq[address] [place], [place] [address]Dr. Marlin Gonzalez WBC 4.8 103/ul Normal 4.0-11.0 [facility] Comment on above: Performed By: #### C BC ####[facility] C[address]mvkfjfp[address] [place], [place] [address]Dr. Marlin Gonzalez POINT OF CARE GLUCOSEon 07-2 3-2022 Glucose [Mass/Vol] 188 mg/dL Critically high 74-106 [facility] Comment on above: Performed By: #### P OCGLUC ####[facility] Abmarwmjlb[address] [place] [address]Dr. Marlin Gonzalez Glucose [Mass/Vol] 141 mg/dL Critically high 74-106 [facility] Comment on above: Performed By: #### P OCGLUC ####[facility] Amavutroee[address] [place] [address]Dr. Marlin Gonzalez Glucose [Mass/Vol] 359 mg/dL Critically high -106 [facility] Comment on above: Performed By: #### P OCGLUC ####[facility] Cocjrgzeqw64[address] [place], [place] [address]Dr. Marlin Gonzalez Glucose [Mass/Vol] 202 mg/dL Critically high -106 [facility] Comment on above: Performed By: #### P OCGLUC ####[facility] Okwpeqnard[address] [place], [place] [address]Dr. Marlin Carlos PROF 14(COMP METB)on 022 Albumin [Mass/Vol] 3.0 g/dL Critically low 3.4-5.0 [facility] Comment on above: Performed By: #### C MP, BNP ####[facility] Eblkwylmgv[address] [place], [place] [address]Dr. Marlin Gonzalez Albumin/Globulin [Mass ratio] 0.9 {ratio} Normal [facility] Comment on above: Performed By: #### C MP, BNP ####[facility] Byafvltxef[address] [place] [address]Dr. Marlin Carlos ALP [Catalytic activity/Vol] 92 U/L Normal 46-116 [facility] Comment on above: Performed By: #### C MP, BNP ####[facility] Kdtofktwdw5098 [place] [address]Dr. Marlin Carlos ALT [Catalytic activity/Vol] 51 U/L Normal 14-59 [facility] Comment on above: Performed By: #### C MP, BNP ####[facility] Mancgspmlq0332 [place] [id number]. Marlin Gonzalez Anion gap [Moles/Vol] 15.0 mmol/L Normal Th e [facility] Comment on above: Performed By: #### C MP, BNP ####[facility] Wggmczxdav1820 [place] [address]Dr. Marlin Gonzalez AST [Catalytic activity/Vol] 31 U/L Normal 15-37 [facility] Comment on above: Performed By: #### C MP, BNP ####[facility] Cvycjweyvf[address] [place], [place] [address]Dr. Marlin Gonzalez Bilirubin [Mass/Vol] 0.3 mg/dL Normal 0.2-1.0 The [facility] Comment on above: Performed By: #### C MP, BNP ####[facility] Ywovtqduls[address] [place], [place] [address]Dr. Marlin Gonzalez Calcium [Mass/Vol] 8.7 mg/dL Normal 8.5-10.1 The [facility] Comment on above: Performed By: #### C MP, BNP ####[facility] Vttwjzogrp[address] [place], [place] [address]Dr. Marlin Gonzalez Chloride [Moles/Vol] 99 mmol/L Normal 98-107 The [facility] Comment on above: Performed By: #### C MP, BNP ####[facility] Mdhkuvdcue[address] [place], [place] [address]Dr. Marlin Gonzalez CO2 [Moles/Vol] 21.5 mmol/L Normal 21.0-32.0 The [facility] Comment on above: Performed By: #### C MP, BNP ####[facility] Bezsnhgxgt9730 [place] [address]Dr. Marlin Gonzalez Creatinine [Mass/Vol] 3.70 mg/dL Critically high 0.55-1.02 The [facility] Comment on above: Performed By: #### C MP, BNP ####[facility] Dfopuumpfh[address] [place], [place] [address]Dr. Marlin Gonzalez EGFR-AF ARGENTINE 15 mL/min/1.73m2 Critically low >=60 The [facility] Comment on above: Performed By: #### C MP, BNP ####[facility] Vhgccpodqj1335 [place] [id number]. Marlin Gonzalez EGFR-NON AF ARGENTINE 12 mL/min/1.73m2 Critically low >=60 [facility] Comment on above: Performed By: #### C MP, BNP ####[facility] Pvuwzttxxs8956 [place] [address]Dr. Marlin Gonzalez Globulin (S) [Mass/Vol] 3.3 g/dL Normal [facility] Comment on above: Performed By: #### C MP, BNP ####[facility] Zqhabvgegi4461 [place] [address]Dr. Marlin Gonzalez Glucose [Mass/Vol] 221 mg/dL Critically high 74-106 [facility] Comment on above: Performed By: #### C MP, BNP ####[facility] Rptmbqcyct524[address] [place], [place] [address]Dr. Marlin Gonzalez Potassium [Moles/Vol] 4.5 mmol/L Normal 3.5-5.1 [facility] Comment on above: Performed By: #### C MP, BNP ####[facility] Jowmwvkegt9[address] [place], [place] [address]Dr. Marlin Gonzalez Protein [Mass/Vol] 6.3 g/dL Critically low 6.4-8.2 Th [facility] Comment on above: Performed By: #### C MP, BNP ####[facility] Vuwlhxhqvc[address] [place], [place] [address]Dr. Marlin Gonzalez Sodium [Moles/Vol] 131 mmol/L Critically low 136-145 Th [facility] Comment on above: Performed By: #### C MP, BNP ####[facility] Jfsobyhktq0188 [place] [address]Dr. Marlin Gonzalez Urea nitrogen [Mass/Vol] 80.0 mg/dL Critically high 7.0-18.0 [facility] Comment on above: Performed By: #### C MP, BNP ####[facility] Uoutvbyltq2175 [place] [address]Dr. Marlin Gonzalez Urea nitrogen/Creatinine [Mass ratio] 21.6 mg/mg Normal [facility] Comment on above: Performed By: #### C MP, BNP ####[facility] Kkshrpafkb[address] [place], [place] [address]Dr. Marlin Gonzalez XR CHEST 1 Von 09-01-2021 XR CHEST 1 V Normal [facility] BLOOD GASES BTYon 08-31-2021 02 MODE NASAL CANNULA Normal [facility] Comment on above: Performed By: #### A BG ####[facility] Jyhftdasdg[address] [place], [place] [address]Dr. Marlin Gonzalez ALLENS TEST Positive [facility] Comment on above: Performed By: #### A BG ####[facility] Vnfdubifyt5[address] [place], [place] [address]Dr. Marlin Gonzalez Base excess Calc (Bld) [Moles/Vol] -4.1000 mmol/L Critically low -2.0-2.0 [facility] Comment on above: Performed By: #### A BG ####[facility] Psepyhcxom624[address] [place], [place] [address]Dr. Marlin Gonzalez BIPAP PRESSURE Normal [facility] Comment on above: Performed By: #### A BG ####[facility] Udqllldruv[address] [place], [place] [address]Dr. Marlin Gonzalez CO2 [Moles/Vol] 44.7 mmol/L Critically high 23.0-28.0 [facility] Comment on above: Performed By: #### A BG ####[facility] Kterwuhbci[address] [place], [place] [address]Dr. Marlin Gonzalez CPAP Normal [facility] Comment on above: Performed By: #### A BG ####[facility] Kohrkajldl65[address] [place], [place] [address]Dr. Marlin Gonzalez FIO2 Normal [facility] Comment on above: Performed By: #### A BG ####[facility] Ynzhlugpdl46[address] [place], [place] [address]Dr. Marlin Gonzalez HCO3 (Bld) [Moles/Vol] 21.3 mmol/L Critically low 22.0-26. 0 The [facility] Comment on above: Performed By: #### A BG ####[facility] Vndglcgkiq2066 [place] [address]Dr. Marlin Gonzalez LPM 2 Normal The [facility] Comment on above: Performed By: #### A BG ####[facility] Qlabgqmowl756[address] [place], [place] [address]Dr. Marlin Gonzalez MINUTE VOLUME Normal The [facility] Comment on above: Performed By: #### A BG ####[facility] Sxglbtpbie13[address] [place], [place] [address]Dr. Marlin Gonzalez Oxygen (Bld) [Partial pressure] 73.5 mm[Hg] Critically low 80.0-100.0 [facility] Comment on above: Performed By: #### A BG ####[facility] Etfyrxfoxn660[address] [place], [place] [address]Dr. Marlin Gonzalez Oxygen saturation in Blood 94.9 % Critically low 95.0-100.0 [facility] Comment on above: Performed By: #### A BG ####[facility] Vlanorlilt37[address] [place], [place] [address]Dr. Marlin Gonzalez PCO2 36.8 mmHg Normal 35.0-45.0 [facility] Comment on above: Performed By: #### A BG ####[facility] Yotarugdwl[address] [place], [place] [address]Dr. Marlin Gonzalez PEEP [facility] Comment on above: Performed By: #### A BG ####[facility] Vehnltshei88[address] [place], [place] [address]Dr. Marlin Gonzalez pH (Bld) 7.370 [pH] Normal 7.350-7.450 [facility] Comment on above: Performed By: #### A BG ####[facility] Vvndlkbjpt022[address] [place], [place] [address]Dr. Marlin Gonzalez PIP [place] The [facility] Comment on above: Performed By: #### A BG ####[facility] Galoadaxyz14[address] [place], [place] [address]Dr. Marlin Gonzalez PS [facility] Comment on above: Performed By: #### A BG ####[facility] Wyjsapscdq[address] [place], [place] [id number]. Marlin Gonzalez PUNCTURE SITE RR [facility] Comment on above: Performed By: #### A BG ####[facility] Gypppexizc6551 [place] [address]Dr. Marlin Gonzalez RATE [facility] Comment on above: Performed By: #### A BG ####[facility] Mwkgcmdsci7341 [place] [address]Dr. Marlin Gonzalez VENT MODE [facility] Comment on above: Performed By: #### A BG ####[facility] Rbldmwhcir6717 [place] [address]Dr. Marlin Gonzalez [place] [facility] Comment on above: Performed By: #### A BG ####[facility] Syufmkcbgd15[address] [place], [place] [address]Dr. Marlin Gonzalez BNPon 08-31-2021 Natriuretic peptide B (Bld) [Mass/Vol] 33081.0 pg/mL Critically high <=900.0 [facility] Comment on above: Performed By: #### B A R COLLECTIONS REP, CMP ####[facility] Dwwobehedv299[address] [place], [place] [address]Dr. Marlin Gonzalez CBC AUTO DIFFon 08-31-2021 BASO # 0.0 103/ul Normal 0.0-0.1 [facility] Comment on above: Performed By: #### C BC ####[facility] Brikiozbzj59[address] [place], [place] [address]Dr. Marlin Gonzalez Basophils/100 WBC (Bld) 0.2 % Normal 0.2-2.0 [facility] Comment on above: Performed By: #### C BC ####[facility] Ioqvwdotly18[address] [place], [place] [address]Dr. Marlin Gonzalez EO # 0.2 103/ul Normal 0.0-0.7 [facility] Comment on above: Performed By: #### C BC ####[facility] Xkxjzujusr0317[address] [place], [place] [address]Dr. Marlin Gonzalez Eosinophils/100 WBC (Bld) 2.3 % Normal 0.9-7.0 [facility] Comment on above: Performed By: #### C BC ####[facility] Gsrgtwixbi6747 [place] [address]Dr. Marlin Gonzalez Erythrocyte distribution width (RBC) [Ratio] 15.1 % Critically high 11.0-15.0 [facility] Comment on above: Performed By: #### C BC ####[facility] Dsabfotxwt10[address] [place], [place] [address]Dr. Marlin Gonzalez Hematocrit (Bld) [Volume fraction] 30.0 % Critically low 36.0-48.0 [facility] Comment on above: Performed By: #### C BC ####[facility] Rnevitvnpx770[address] [place], [place] [address]Dr. Marlin Gonzalez Hemoglobin (Bld) [Mass/Vol] 9.7 g/dL Critically low 12.0-16.0 [facility] Comment on above: Performed By: #### C BC ####[facility] Zwbouxqkkq[address] [place], [place] [address]Dr. Marlin Gonzalez IG # 0.02 10e3/ul Normal 0.00-0.03 [facility] Comment on above: Performed By: #### C BC ####[facility] Dhnishivlf095[address] [place], [place] [address]Dr. Marlin Gonzalez IG % 0.2 % Normal 0.0-0.5 [facility] Comment on above: Performed By: #### C BC ####[facility] Brlzeuaxik98[address] [place], [place] [address]Dr. Marlin Gonzalez LYMPH # 1.5 103/ul Normal 1.2-3.8 [facility] Comment on above: Performed By: #### C BC ####[facility] Cmlnqxikyk769[address] [place], [place] [address]Dr. Marlin Gonzalez Lymphocytes/100 WBC (Bld) 16.6 % Critically low 20.5-60.0 [facility] Comment on above: Performed By: #### C BC ####[facility] Kpdbouwcvf[address] [place], [place] [address]Dr. Marlin Gonzalez MANUAL DIFF REQ NO Normal [facility] Comment on above: Performed By: #### C BC ####[facility] Jkdtlwmdaz8397 [place] [id number]. Marlin Carlos MCH (RBC) [Entitic mass] 30.7 pg Normal 26.7-34.0 [facility] Comment on above: Performed By: #### C BC ####[facility] Yezqxylxrg6754 [place] [address]Dr. Marlin Carlos MCHC (RBC) [Mass/Vol] 32.3 g/dL Normal 29.9-35.2 [facility] Comment on above: Performed By: #### C BC ####[facility] Lomzjgjwip2059 [place] [address]Dr. Katherinearmando Gonzalez MCV (RBC) [Entitic vol] 94.9 fL Normal 81.0-99.0 [facility] Comment on above: Performed By: #### C BC ####[facility] Nriebgcxpo30[address] [place], [place] [address]Dr. Marlin Gonzalez MONO # 0.6 103/ul Normal 0.3-0.8 [facility] Comment on above: Performed By: #### C BC ####[facility] Epfwgrvqth826[address] [place], [place] [address]Dr. Katherinearmando Gonzalez Monocytes/100 WBC (Bld) 6.5 % Normal 1.7-12.0 [facility] Comment on above: Performed By: #### C BC ####[facility] Jozqqxkaaq260[address] [place], [place] [address]Dr. Marlin Gonzalez NEUT # 6.9 103/ul Critically high 1.4-6.5 [facility] Comment on above: Performed By: #### C BC ####[facility] Dzzbtjsgps90[address] [place], [place] [address]DrLucia oGnzalez Neutrophils/100 WBC (Bld) 74.2 % Normal 43.0-75.0 [facility] Comment on above: Performed By: #### C BC ####[facility] Kmpkvmdqub98[address] [place], [place] [address]DrLucia Gonzalez Platelet mean volume (Bld) [Entitic vol] 11.0 fL Normal 9.5-13.5 [facility] Comment on above: Performed By: #### C BC ####[facility] Plfhrpfrun9828 [place] [address]Dr. Marlin Gonzalez PLT 221 103/ul Normal 150-450 [facility] Comment on above: Result Comment: plat elet clumps seen but platelet count adequate Performed By: #### C BC ####[facility] Imivqychpm5732 [place] [address]Dr. Malrin Gonzalez RBC 3.16 106/ul Critically low 4.20-5.40 [facility] Comment on above: Performed By: #### C BC ####[facility] Hhsxysbrtj5247 [place] [address]Dr. Marlin Gonzalez WBC 9.3 103/ul Normal 4.0-11.0 [facility] Comment on above: Performed By: #### C BC ####[facility] Ahyviskvzw5935 [place] [address]Dr. Marlin Gonzalez ECHO LIMITED STUDYon 022 ECHO LIMITED STUDY Normal [facility] POINT OF CARE GLUCOSEon 08-11 Glucose [Mass/Vol] 335 mg/dL Critically high 74-106 [facility] Comment on above: Performed By: #### P OCGLUC ####[facility] Uqgvpyqhoh7427 [place] [address]Dr. Marlin Gonzalez Glucose [Mass/Vol] 208 mg/dL Critically high 74-106 [facility] Comment on above: Performed By: #### P OCGLUC ####[facility] Iwcwbtyljp7899 [place] [id number]. Marlin Gonzalez Glucose [Mass/Vol] 182 mg/dL Critically high 74-106 [facility] Comment on above: Performed By: #### P OCGLUC ####[facility] Swkizjvydq4459 [place] [address]Dr. Marlin Gonzalez Glucose [Mass/Vol] 101 mg/dL Normal 74-106 [facility] Comment on above: Performed By: #### P OCGLUC ####[facility] Ktwwyhjpnr1503 [place] [address]Dr. Marlin Gonzalez PROF 14(COMP METB)on 022 Albumin [Mass/Vol] 3.1 g/dL Critically low 3.4-5.0 [facility] Comment on above: Performed By: #### B A R COLLECTIONS REP, CMP ####[facility] Kgkblvfnhx8647 [place] [id number]. Marlin Gonzalez Albumin/Globulin [Mass ratio] 0.9 {ratio} Normal [facility] Comment on above: Performed By: #### B A R COLLECTIONS REP, CMP ####[facility] Pnptnoaeit9859 [place] [address]Dr. Marlin Gonzalez ALP [Catalytic activity/Vol] 98 U/L Normal 46-116 [facility] Comment on above: Performed By: #### B A R COLLECTIONS REP, CMP ####[facility] Vtdnyraaan4917 [place] [address]Dr. Marlin Gonzalez ALT [Catalytic activity/Vol] 30 U/L Normal 14-59 [facility] Comment on above: Performed By: #### B A R COLLECTIONS REP, CMP ####[facility] Igmfnqweuo2573 [place] [address]Dr. Marlin Gonzalez Anion gap [Moles/Vol] 14.4 mmol/L Normal [facility] Comment on above: Performed By: #### B A R COLLECTIONS REP, CMP ####[facility] Ioebqjmswv4775 [place] [address]Dr. Marlin Gonzalez AST [Catalytic activity/Vol] 29 U/L Normal 15-37 [facility] Comment on above: Performed By: #### B A R COLLECTIONS REP, CMP ####[facility] Jirvytusqi8930 [place] [address]Dr. Marlin Gonzalez Bilirubin [Mass/Vol] 0.3 mg/dL Normal 0.2-1.0 [facility] Comment on above: Performed By: #### B A R COLLECTIONS REP, CMP ####[facility] Wbqrzcvwwi7522 [place] [address]Dr. Marlin Gonzalez Calcium [Mass/Vol] 8.9 mg/dL Normal 8.5-10.1 [facility] Comment on above: Performed By: #### B A R COLLECTIONS REP, CMP ####[facility] Bwfhfmmpjy8961 [place] [address]Dr. Marlin Gonzalez Chloride [Moles/Vol] 99 mmol/L Normal 98-107 [facility] Comment on above: Performed By: #### B A R COLLECTIONS REP, CMP ####[facility] Pifdljcacz64[address] [place], [place] [address]Dr. Marlin Gonzalez CO2 [Moles/Vol] 24.7 mmol/L Normal 21.0-32.0 [facility] Comment on above: Performed By: #### B A R COLLECTIONS REP, CMP ####[facility] Abavhbltkb6191 [place] [address]Dr. Marlin Gonzalez Creatinine [Mass/Vol] 3.79 mg/dL Critically high 0.55-1.02 [facility] Comment on above: Performed By: #### B A R COLLECTIONS REP, CMP ####[facility] Tanjvthwyo[address] [place], [place] [address]Dr. Marlin Carlos EGFR-AF ARGENTINE 14 mL/min/1.73m2 Critically low >=60 [facility] Comment on above: Performed By: #### B A R COLLECTIONS REP, CMP ####[facility] Farlsszwkr966[address] [place], [place] [address]Dr. Marlin Gonzalez EGFR-NON AF ARGENTINE 12 mL/min/1.73m2 Critically low >=60 [facility] Comment on above: Performed By: #### B A R COLLECTIONS REP, CMP ####[facility] Vejsxtkyqa16[address] [place], [place] [address]Dr. Marlin Carlos Globulin (S) [Mass/Vol] 3.3 g/dL Normal [facility] Comment on above: Performed By: #### B A R COLLECTIONS REP, CMP ####[facility] Uofffrdtog920[address] [place], [place] [address]Dr. Marlin Gonzalez Glucose [Mass/Vol] 106 mg/dL Normal 74-106 [facility] Comment on above: Performed By: #### B A R COLLECTIONS REP, CMP ####[facility] Hvmccqclqe64[address] [place], [place] [address]Dr. Katherinearmando Carlos Potassium [Moles/Vol] 5.1 mmol/L Normal 3.5-5.1 [facility] Comment on above: Performed By: #### B A R COLLECTIONS REP, CMP ####[facility] Ytstniswok210[address] [place], [place] [address]Dr. Marlin Gonzalez Protein [Mass/Vol] 6.4 g/dL Normal 6.4-8.2 [facility] Comment on above: Performed By: #### B A R COLLECTIONS REP, CMP ####[facility] Xgaixkgskm2464[address] [place], [place] [address]Dr. Marlin Gonzalez Sodium [Moles/Vol] 133 mmol/L Critically low 136-145 [facility] Comment on above: Performed By: #### B A R COLLECTIONS REP, CMP ####[facility] Hvhalzalts[address] [place], [place] [address]Dr. Marlin Gonzalez Urea nitrogen [Mass/Vol] 71.0 mg/dL Critically high 7.0-18.0 [facility] Comment on above: Performed By: #### B A R COLLECTIONS REP, CMP ####[facility] Vfxjmqpoqr66[address] [place], [place] [address]Dr. Marlin Gonzalez Urea nitrogen/Creatinine [Mass ratio] 18.7 mg/mg Normal [facility] Comment on above: Performed By: #### B A R COLLECTIONS REP, CMP ####[facility] Bgrxtruoxf[address] [place], [place] [address]Dr. Katherinearmando Carlos XR CHEST 1 Von 08-31-2021 XR CHEST 1 V Normal [facility] BNPon 08-30-2021 Natriuretic peptide B (Bld) [Mass/Vol] 53203.0 pg/mL Critically high <=900.0 [facility] Comment on above: Performed By: #### B A R COLLECTIONS REP, CMP ####[facility] Btdcbcjzcd[address] [place], [place] [address]Dr. Katherinearmando Carlos CBC AUTO DIFFon 08-30-2021 BASO # 0.0 103/ul Normal 0.0-0.1 [facility] Comment on above: Performed By: #### C BC ####[facility] Yrytsgkzrm[address] [place], [place] [address]Dr. Marlin Gonzalez Basophils/100 WBC (Bld) 0.2 % Normal 0.2-2.0 [facility] Comment on above: Performed By: #### C BC ####[facility] Mddaxvcaqq1127 [place] [id number]. Marlin Gonzalez EO # 0.0 103/ul Normal 0.0-0.7 [facility] Comment on above: Performed By: #### C BC ####[facility] Edecmptuzp198[address] [place], [place] [address]Dr. Marlin Gonzalez Eosinophils/100 WBC (Bld) 0.0 % Critically low 0.9-7.0 [facility] Comment on above: Performed By: #### C BC ####[facility] Tockzvkbbc[address] [place], [place] [address]Dr. Marlin Gonzalez Erythrocyte distribution width (RBC) [Ratio] 14.8 % Normal 11.0-15.0 [facility] Comment on above: Performed By: #### C BC ####[facility] [address] [place], [place] [address]Dr. Marlin Gonzalez Hematocrit (Bld) [Volume fraction] 30.1 % Critically low 36.0-48.0 [facility] Comment on above: Performed By: #### C BC ####[facility] Teelqxysdi[address] [place], [place] [address]Dr. Marlin Gonzalez Hemoglobin (Bld) [Mass/Vol] 9.7 g/dL Critically low 12.0-16.0 [facility] Comment on above: Performed By: #### C BC ####[facility] Foprgywxju[address] [place], [place] [address]Dr. Marlin Gonzalez IG # 0.03 10e3/ul Normal 0.00-0.03 [facility] Comment on above: Performed By: #### C BC ####[facility] Qyjhgjtmov[address] [place], [place] [address]Dr. Marlin Gonzalez IG % 0.5 % Normal 0.0-0.5 [facility] Comment on above: Performed By: #### C BC ####[facility] Tpwvbvaefp[address] [place], [place] [address]Dr. Katherinearmando Gonzalez LYMPH # 0.7 103/ul Critically low 1.2-3.8 [facility] Comment on above: Performed By: #### C BC ####[facility] Tjfbcofkyi3[address] [place] [id number]. Katherinearmando Gonzalez Lymphocytes/100 WBC (Bld) 11.9 % Critically low 20.5-60.0 [facility] Comment on above: Performed By: #### C BC ####[facility] Awcachtxxn3081 [place] [id number]. Marlin Gonzalez MANUAL DIFF REQ NO Normal [facility] Comment on above: Performed By: #### C BC ####[facility] Pqqxdjxcsj9434 [place] [id number]. Marlin Gonzalez MCH (RBC) [Entitic mass] 30.3 pg Normal 26.7-34.0 [facility] Comment on above: Performed By: #### C BC ####[facility] Kbzqzkdgyu464[address] [place], [place] [address]Dr. Marlin Gonzalez MCHC (RBC) [Mass/Vol] 32.2 g/dL Normal 29.9-35.2 [facility] Comment on above: Performed By: #### C BC ####[facility] Payfzajdnk8180 [place] [id number]. Marlin Gonzalez MCV (RBC) [Entitic vol] 94.1 fL Normal 81.0-99.0 [facility] Comment on above: Performed By: #### C BC ####[facility] Yyfsrfswth[address] [place], [place] [address]Dr. Marlin Gonzalez MONO # 0.4 103/ul Normal 0.3-0.8 [facility] Comment on above: Performed By: #### C BC ####[facility] Scbrpkvvgo50[address] [place], [place] [address]Dr. Marlin Gonzalez Monocytes/100 WBC (Bld) 6.8 % Normal 1.7-12.0 [facility] Comment on above: Performed By: #### C BC ####[facility] Nuvskjoybc[address] [place], [place] [address]Dr. Marlin Gonzalez NEUT # 4.6 103/ul Normal 1.4-6.5 [facility] Comment on above: Performed By: #### C BC ####[facility] Eeoqqqfttf6858 [place] [id number]. Marlin Gonzalez Neutrophils/100 WBC (Bld) 80.6 % Critically high 43.0-75.0 [facility] Comment on above: Performed By: #### C BC ####[facility] Vrroxudyuy0614 [place] [id number]. Marlin Gonzalez Platelet mean volume (Bld) [Entitic vol] 10.0 fL Normal 9.5-13.5 [facility] Comment on above: Performed By: #### C BC ####[facility] Yhdoqqvbwk9274 [place] [id number]. Marlin Carlos PLT 244 103/ul Normal 150-450 [facility] Comment on above: Performed By: #### C BC ####[facility] Akmtlvkcac7768 [place] [id number]. Marlin Carlos RBC 3.20 106/ul Critically low 4.20-5.40 [facility] Comment on above: Performed By: #### C BC ####[facility] Gqyclsodgg9997 [place] [id number]. Marlin Gonzalez WBC 5.7 103/ul Normal 4.0-11.0 [facility] Comment on above: Performed By: #### C BC ####[facility] Egpbglbvrs8638 [place] [phone]. Marlin Carlos POINT OF CARE GLUCOSEon 07-2 Glucose [Mass/Vol] 121 mg/dL Critically high 74-106 [facility] Comment on above: Performed By: #### P OCGLUC ####[facility] Rhlroyfrxh7998 [place] [id number]. Marlin Gonzalez Glucose [Mass/Vol] 109 mg/dL Critically high 74-106 [facility] Comment on above: Performed By: #### P OCGLUC ####[facility] Lfezsjwtwj3125 [place] [id number]. Katherinearmando Carlos Glucose [Mass/Vol] 71 mg/dL Critically low 74-106 [facility] Comment on above: Performed By: #### P OCGLUC ####[facility] Bfkfsvmblm5839 [place] [address]Dr. Marlin Gonzalez Glucose [Mass/Vol] 192 mg/dL Critically high 74-106 [facility] Comment on above: Performed By: #### P OCGLUC ####[facility] Hwlljfnwbm7239 [place] [address]Dr. Marlin Gonzalez PROF 14(COMP METB)on 022 Albumin [Mass/Vol] 2.9 g/dL Critically low 3.4-5.0 [facility] Comment on above: Performed By: #### B A R COLLECTIONS REP, CMP ####[facility] Nwpifdxeyc[address] [place], [place] [address]Dr. Marlin Gonzalez Albumin/Globulin [Mass ratio] 0.9 {ratio} Normal [facility] Comment on above: Performed By: #### B A R COLLECTIONS REP, CMP ####[facility] Ewoaoyldvr9[address] [place], [place] [address]Dr. Marlin Gonzalez ALP [Catalytic activity/Vol] 102 U/L Normal 46-116 [facility] Comment on above: Performed By: #### B A R COLLECTIONS REP, CMP ####[facility] Uoaycdovnh27[address] [place], [place] [address]Dr. Marlin Gonzalez ALT [Catalytic activity/Vol] 28 U/L Normal 14-59 [facility] Comment on above: Performed By: #### B A R COLLECTIONS REP, CMP ####[facility] Bwtgpduvgj4490 [place] [address]Dr. Marlin Gonzalez Anion gap [Moles/Vol] 14.9 mmol/L Normal [facility] Comment on above: Performed By: #### B A R COLLECTIONS REP, CMP ####[facility] Xorkvwjmsh[address] [place], [place] [address]Dr. Marlin Gonzalez AST [Catalytic activity/Vol] 16 U/L Normal 15-37 [facility] Comment on above: Performed By: #### B A R COLLECTIONS REP, CMP ####[facility] Mzzrbhmqst00[address] [place], [place] [address]Dr. Marlin Gonzalez Bilirubin [Mass/Vol] 0.3 mg/dL Normal 0.2-1.0 [facility] Comment on above: Performed By: #### B A R COLLECTIONS REP, CMP ####[facility] Csnianjnrx09[address] [place], [place] [address]Dr. Marlin Gonzalez Calcium [Mass/Vol] 8.9 mg/dL Normal 8.5-10.1 [facility] Comment on above: Performed By: #### B A R COLLECTIONS REP, CMP ####[facility] Eoijbaixxg036[address] [place], [place] [address]Dr. Marlin Gonzalez Chloride [Moles/Vol] 98 mmol/L Normal 98-107 [facility] Comment on above: Performed By: #### B A R COLLECTIONS REP, CMP ####[facility] Jyusqxnepe06[address] [place], [place] [address]Dr. Marlin Gonzalez CO2 [Moles/Vol] 23.0 mmol/L Normal 21.0-32.0 [facility] Comment on above: Performed By: #### B A R COLLECTIONS REP, CMP ####[facility] Tghgwpedav26[address] [place], [place] [address]Dr. Marlin Gonzalez Creatinine [Mass/Vol] 3.99 mg/dL Critically high 0.55-1.02 [facility] Comment on above: Performed By: #### B A R COLLECTIONS REP, CMP ####[facility] Lahqdwvffu[address] [place], [place] [address]Dr. Marlin Gonzalez EGFR-AF ARGENTINE 13 mL/min/1.73m2 Critically low >=60 [facility] Comment on above: Performed By: #### B A R COLLECTIONS REP, CMP ####[facility] Catcmsjsfl2034[address] [place], [place] [address]Dr. Marlin Gonzalez EGFR-NON AF ARGENTINE 11 mL/min/1.73m2 Critically low >=60 [facility] Comment on above: Performed By: #### B A R COLLECTIONS REP, CMP ####[facility] Wvxxvnyysj01[address] [place], [place] [address]Dr. Marlin Gonzalez Globulin (S) [Mass/Vol] 3.4 g/dL Normal [facility] Comment on above: Performed By: #### B A R COLLECTIONS REP, CMP ####[facility] Lbaycqkyno[address] [place], [place] [address]Dr. Marlin Gonzalez Glucose [Mass/Vol] 243 mg/dL Critically high 74-106 [facility] Comment on above: Performed By: #### B A R COLLECTIONS REP, CMP ####[facility] Hvxgzbkknk[address] [place], [place] [address]Dr. Marlin Gonzalez Potassium [Moles/Vol] 4.9 mmol/L Normal 3.5-5.1 [facility] Comment on above: Performed By: #### B A R COLLECTIONS REP, CMP ####[facility] Tpjeptbxrt[address] [place], [place] [address]Dr. Marlin Gonzalez Protein [Mass/Vol] 6.3 g/dL Critically low 6.4-8.2 [facility] Comment on above: Performed By: #### B A R COLLECTIONS REP, CMP ####[facility] Qznapocled66[address] [place], [place] [address]Dr. Marlin Gonzalez Sodium [Moles/Vol] 131 mmol/L Critically low 136-145 [facility] Comment on above: Performed By: #### B A R COLLECTIONS REP, CMP ####[facility] Krtpszcxng99[address] [place], [place] [address]Dr. Marlin Gonzalez Urea nitrogen [Mass/Vol] 66.0 mg/dL Critically high 7.0-18.0 [facility] Comment on above: Performed By: #### B A R COLLECTIONS REP, CMP ####[facility] Naqgixrjjk[address] [place], [place] [address]Dr. Marlin Gonzalez Urea nitrogen/Creatinine [Mass ratio] 16.5 mg/mg Normal [facility] Comment on above: Performed By: #### B A R COLLECTIONS REP, CMP ####[facility] Dswcfypesa59[address] [place], [place] [address]Dr. Marlin Gonzalez XR CHEST 2 Von 08-30-2021 XR CHEST 2 V Normal [facility] BNPon 08-29-2021 Natriuretic peptide B (Bld) [Mass/Vol] 15206.0 pg/mL Critically high <=900.0 [facility] Comment on above: Result Comment: repe ated Performed By: #### C MP, BNP, CMADM ####[facility] Snixodqofl[address] [place], [place] [address]Dr. Marlin Gonzalez CARDIAC JOSSIE 3-6on 2 CK [Catalytic activity/Vol] 58 U/L Normal 26-192 [facility] Comment on above: Performed By: #### C MREP ####[facility] Svknoubjct[address] [place] [address]Dr. Marlin Gonzalez CK.MB [Mass/Vol] 2.02 ng/mL Normal <=3.60 [facility] Comment on above: Performed By: #### C MREP ####[facility] Mzyvcywlnl549[address] [place] [address]Dr. Marlin Gonzalez HSTROP 21.3 pg/mL Normal 4.0-51.3 [facility] Comment on above: Result Comment: CUT- OFF POINTS HAVE BEEN ESTABLISHED BASED ON THE FOURTH UNIVERSAL DEFINITIONS OF MYOCARDIALINFARCTION. THE UPPER REFERENCE LIMIT (URL) OF TROPONIN, DEFINED THE 99TH PERCENTILE OFcTnI DISTRIBUTION IN A REFERENCE POPULATION, HAS BEEN CONFIRMED THE DECISION THRESHOLDFOR CT DIAGNOSIS. Performed By: #### C MREP ####[facility] Siwkvvqjcs4276 [place] [address]Dr. Marlin Gonzalez CK [Catalytic activity/Vol] 71 U/L Normal 26-192 [facility] Comment on above: Performed By: #### C MREP ####[facility] Dwpufvuuee5711 [place] [address]Dr. Marlin Gonzalez CK.MB [Mass/Vol] 2.07 ng/mL Normal <=3.60 [facility] Comment on above: Performed By: #### C MREP ####[facility] Gonwpnpllm9204 [place] [address]Dr. Marlin Gonzalez HSTROP 23.6 pg/mL Normal 4.0-51.3 [facility] Comment on above: Result Comment: CUT- OFF POINTS HAVE BEEN ESTABLISHED BASED ON THE FOURTH UNIVERSAL DEFINITIONS OF MYOCARDIALINFARCTION. THE UPPER REFERENCE LIMIT (URL) OF TROPONIN, DEFINED THE 99TH PERCENTILE OFcTnI DISTRIBUTION IN A REFERENCE POPULATION, HAS BEEN CONFIRMED THE DECISION THRESHOLDFOR CT DIAGNOSIS. Performed By: #### C MREP ####[facility] Wykpuozrup9671 [place] [address]Dr. Marlin Gonzalez CARDIAC JOSSIE ADMITon 022 CK [Catalytic activity/Vol] 63 U/L Normal 26-192 [facility] Comment on above: Performed By: #### C MP, BNP, CMADM ####[facility] Oagfkdkvob2512 [place] [address]Dr. Marlin Gonzalez CK.MB [Mass/Vol] 2.23 ng/mL Normal <=3.60 [facility] Comment on above: Performed By: #### C MP, BNP, CMADM ####[facility] Seerbqxeki5439 [place] [address]Dr. Marlin Gonzalez HSTROP 28.3 pg/mL Normal 4.0-51.3 [facility] Comment on above: Result Comment: CUT- OFF POINTS HAVE BEEN ESTABLISHED BASED ON THE FOURTH UNIVERSAL DEFINITIONS OF MYOCARDIALINFARCTION. THE UPPER REFERENCE LIMIT (URL) OF TROPONIN, DEFINED THE 99TH PERCENTILE OFcTnI DISTRIBUTION IN A REFERENCE POPULATION, HAS BEEN CONFIRMED THE DECISION THRESHOLDFOR CT DIAGNOSIS. Performed By: #### C MP, BNP, CMADM ####[facility] Ecsacmxhjv1365 [place] [address]Dr. Marlin Gonzalez GHASSAN 175 ng/mL Critically high 9-82 [facility] Comment on above: Performed By: #### C MP, BNP, CMADM ####[facility] Exyrfzcofe7[address] [place] [address]Dr. Marlin Gonzalez CBC AUTO DIFFon 08-29-2021 BASO # 0.0 103/ul Normal 0.0-0.1 [facility] Comment on above: Performed By: #### C BC ####[facility] Ajucokjwhw8897 [place] [address]Dr. Marlin Carlos Basophils/100 WBC (Bld) 0.4 % Normal 0.2-2.0 [facility] Comment on above: Performed By: #### C BC ####[facility] Pdeuherlwo0065 [place] [address]Dr. Marlin Carlos EO # 0.2 103/ul Normal 0.0-0.7 [facility] Comment on above: Performed By: #### C BC ####[facility] Oycvnwfuhc5143 [place] [address]Dr. Marlin Gonzalez Eosinophils/100 WBC (Bld) 2.8 % Normal 0.9-7.0 [facility] Comment on above: Performed By: #### C BC ####[facility] Gvhelrlkqs1916 [place] [address]Dr. Marlin Gonzalez Erythrocyte distribution width (RBC) [Ratio] 14.9 % Normal 11.0-15.0 [facility] Comment on above: Performed By: #### C BC ####[facility] Goiemrieah[address] [place], [place] [address]Dr. Marlin Gonzalez Hematocrit (Bld) [Volume fraction] 31.9 % Critically low 36.0-48.0 [facility] Comment on above: Performed By: #### C BC ####[facility] Qsehdkdazm99[address] [place], [place] [address]Dr. Marlin Gonzalez Hemoglobin (Bld) [Mass/Vol] 10.2 g/dL Critically low 12.0-16.0 [facility] Comment on above: Performed By: #### C BC ####[facility] Kjepngwxos[address] [place], [place] [address]Dr. Marlin Gonzalez IG # 0.04 10e3/ul Critically high 0.00-0.03 [facility] Comment on above: Performed By: #### C BC ####[facility] Ganmoyikwm[address] [place], [place] [address]Dr. Marlin Gonzalez IG % 0.5 % Normal 0.0-0.5 [facility] Comment on above: Performed By: #### C BC ####[facility] Yfmpcffahs350[address] [place], [place] [address]Dr. Marlin Goznalez LYMPH # 1.1 103/ul Critically low 1.2-3.8 [facility] Comment on above: Performed By: #### C BC ####[facility] Nscfohiirl[address] [place], [place] [address]Dr. Marlin Gonzalez Lymphocytes/100 WBC (Bld) 14.9 % Critically low 20.5-60.0 [facility] Comment on above: Performed By: #### C BC ####[facility] Uxoufnvcus6450 [place] [address]Dr. Marlin Gonzalez MANUAL DIFF REQ NO Normal [facility] Comment on above: Performed By: #### C BC ####[facility] Dymqcymmnb8716 [place] [id number]. Marlin Gonzalez MCH (RBC) [Entitic mass] 30.0 pg Normal 26.7-34.0 [facility] Comment on above: Performed By: #### C BC ####[facility] Btfzxysxns9909 [place] [address]Dr. Marlin Gonzalez MCHC (RBC) [Mass/Vol] 32.0 g/dL Normal 29.9-35.2 [facility] Comment on above: Performed By: #### C BC ####[facility] Exnvstrhzu363[address] [place], [place] [address]Dr. Marlin Gonzalez MCV (RBC) [Entitic vol] 93.8 fL Normal 81.0-99.0 [facility] Comment on above: Performed By: #### C BC ####[facility] Wxttarxmis70[address] [place], [place] [address]Dr. Marlin Gonzalez MONO # 0.7 103/ul Normal 0.3-0.8 [facility] Comment on above: Performed By: #### C BC ####[facility] Xcoqtlkjcu29[address] [place], [place] [address]Dr. Marlin Gonzalez Monocytes/100 WBC (Bld) 9.7 % Normal 1.7-12.0 [facility] Comment on above: Performed By: #### C BC ####[facility] Hlyjhxfrzk0024[address] [place], [place] [address]Dr. Marlin Gonzalez NEUT # 5.4 103/ul Normal 1.4-6.5 [facility] Comment on above: Performed By: #### C BC ####[facility] Bpfhnwcpng80[address] [place], [place] [address]Dr. Marlin Gonzalez Neutrophils/100 WBC (Bld) 71.7 % Normal 43.0-75.0 [facility] Comment on above: Performed By: #### C BC ####[facility] Iezxcrvvou6321 [place] [id number]. Marlin Gonzalez Platelet mean volume (Bld) [Entitic vol] 10.1 fL Normal 9.5-13.5 [facility] Comment on above: Performed By: #### C BC ####[facility] Alvppkcsbp8346 [place] [id number]. Marlin Gonzalez PLT 263 103/ul Normal 150-450 [facility] Comment on above: Performed By: #### C BC ####[facility] Ehrrlifvla3571 [place] [id number]. Marlin Gonzalez RBC 3.40 106/ul Critically low 4.20-5.40 [facility] Comment on above: Performed By: #### C BC ####[facility] Ajpothhbep0289 [place] [address]Dr. Marlin Gonzalez WBC 7.5 103/ul Normal 4.0-11.0 [facility] Comment on above: Performed By: #### C BC ####[facility] Ecmgqclwpr9936 [place] [id number]. Marlin Gonzalez CULTURE BLOODon 08-29-2021 Microscopic examination of blood, culture Culture Observations: NO GROWTH AT 5 DAYS. Normal [facility] Comment on above: Performed By: #### B LDCX2 ####[facility] Rsxmdbicuu39[address] [place], [place] [address]Dr. Marlin Gonzalez Performed By: #### B LDCX1 ####[facility] Epgzipjjpr6[address] [place], [place] [id number]. Marlin Gonzalez CULTURE URINEon 08-29-2021 CULTURE URINE Culture Observations : LIGHT GROWTH OF MIXED GENITAL MARIANNA. NO POTENTIAL PATHOGENS SEEN. Normal [facility] Comment on above: Performed By: #### U RCX ####[facility] Oleznwkodi028[address] [place], [place] [address]Dr. Marlin Gonzalez Covid-19 PCR (CVDTB)on 08-11 SARS-CoV-2 (COVID-19) RNA MADISON+probe Ql (Unsp spec) Not detected Normal NOT DETECTED [facility] Comment on above: Result Comment: When [...] for this test is supported by the Operations Advisor of Health and Human Service's declaration that [...] be used). Performed By: #### C VDTB ####[facility] Urtqvkxavz527[address] [place], [place] [address]Dr. Marlin Gonzalez ER URINE PROFILEon 2 Bilirubin Ql (U) Negative Normal NEGATIVE [facility] Comment on above: Performed By: #### U MICRO, ERUR ####[facility] Yudbvytczk466[address] [place], [place] [address]Dr. Marlin Gonzalez Clarity (U) CLEAR Normal CLEAR [facility] Comment on above: Performed By: #### U MICRO, ERUR ####[facility] Jbbhbyfcni[address] [place], [place] [address]Dr. Marlin Gonzalez Color (U) LT. YELLOW Normal YELLOW [facility] Comment on above: Performed By: #### U MICRO, ERUR ####[facility] Gowqqzhyou813[address] [place], [place] [address]Dr. Marlin Gonzalez ERUAHD A micrscopic examina tion will be performed if indicated. Normal [facility] Comment on above: Performed By: #### U MICRO, ERUR ####[facility] Afxyddpjij25[address] [place], [place] [address]Dr. Marlin Gonzalez Glucose Ql (U) Negative Normal NEGATIVE [facility] Comment on above: Performed By: #### U MICRO, ERUR ####[facility] Gjkpuvcswp2172 [place] [address]Dr. Marlin Gonzalez Hemoglobin Ql (U) Negative Normal NEGATIVE [facility] Comment on above: Performed By: #### U MICRO, ERUR ####[facility] Wortbiflck3512 [place] [address]Dr. Marlin Gonzalez Ketones Ql (U) Negative Normal NEGATIVE [facility] Comment on above: Performed By: #### U MICRO, ERUR ####[facility] Pusdmfkaos[address] [place], [place] [address]Dr. Marlin Gonzalez LEUKOCYTES SMALL Abnormal NEGATIVE [facility] Comment on above: Performed By: #### U MICRO, ERUR ####[facility] Cnehwpbbsy[address] [place], [place] [address]Dr. Marlin Gonzalez Nitrite Ql (U) Negative Normal NEGATIVE [facility] Comment on above: Performed By: #### U MICRO, ERUR ####[facility] S[address]agbvbhsj[address] [place], [place] [address]Dr. Marlin Gonzalez pH (U) 6.0 [pH] Normal 5-9 The [facility] Comment on above: Performed By: #### U MICRO, ERUR ####[facility] Ruufukpslf[address] [place], [place] [address]Dr. Marlin Gonzalez Protein (U) [Mass/Vol] 100 mg/dL Abnormal NEGAT SHEA/ TRACE The [facility] Comment on above: Performed By: #### U MICRO, ERUR ####[facility] Cff[address] [place], [place] [address]Dr. Marlin Gonzalez SPEC GRAVITY 1.020 Normal 1.005-<=1.02 5 The [facility] Comment on above: Performed By: #### U MICRO, ERUR ####[facility] [address]qu[address] [place], [place] [address]Dr. Marlin Gonzalez UR MICRO IND INDICATED Normal The [facility] Comment on above: Performed By: #### U MICRO, ERUR ####[facility] Tbmzrihadu[address] [place], [place] [address]Dr. Marlin Gonzalez Urobilinogen Qn (U) 0.2 {Ryan'U}/dL Normal 0.2 - 1. 0 [facility] Comment on above: Performed By: #### U MICRO, ERUR ####[facility] Qovleojwvr2598 [place] [address]Dr. Marlin Gonzalez LACTATE/LACTIC ACIDon 2021 Lactate [Moles/Vol] 1.1 mmol/L Normal 0.4-1.9 [facility] Comment on above: Performed By: #### L ACT ####[facility] Xuieuppqip[address] [place], [place] [address]Dr. Marlin Gonzalez POINT OF CARE GLUCOSEon 08-11 Glucose [Mass/Vol] 359 mg/dL Critically high 74-106 [facility] Comment on above: Performed By: #### P OCGLUC ####[facility] Gwcyocnnrr[address] [place], [place] [address]Dr. Marlin Gonzalez PROF 14(COMP METB)on 022 Albumin [Mass/Vol] 3.2 g/dL Critically low 3.4-5.0 [facility] Comment on above: Performed By: #### C MP, BNP, CMADM ####[facility] Cialzelrfg[address] [place], [place] [address]Dr. Marlin Gonzalez Albumin/Globulin [Mass ratio] 0.9 {ratio} Normal [facility] Comment on above: Performed By: #### C MP, BNP, CMADM ####[facility] Zmpbwnkzru8860 [place] [address]Dr. Marlin Gonzalez ALP [Catalytic activity/Vol] 107 U/L Normal 46-116 [facility] Comment on above: Performed By: #### C MP, BNP, CMADM ####[facility] Uxotjxhmie4636 [place] [address]Dr. Marlin Gonzalez ALT [Catalytic activity/Vol] 35 U/L Normal 14-59 [facility] Comment on above: Performed By: #### C MP, BNP, CMADM ####[facility] Zqkaftzydl9645 [place] [address]Dr. Marlin Gonzalez Anion gap [Moles/Vol] 14.7 mmol/L Normal Th e [facility] Comment on above: Performed By: #### C MP, BNP, CMADM ####[facility] Tcksqbdkod7262 [place] [address]Dr. Marlin Gonzalez AST [Catalytic activity/Vol] 21 U/L Normal 15-37 The [facility] Comment on above: Performed By: #### C MP, BNP, CMADM ####[facility] Kghkaqrenc6160 [place] [address]Dr. Marlin Gonzalez Bilirubin [Mass/Vol] 0.3 mg/dL Normal 0.2-1.0 The [facility] Comment on above: Performed By: #### C MP, BNP, CMADM ####[facility] Iqncywslgq[address] [place], [place] [address]Dr. Marlin Gonzalez Calcium [Mass/Vol] 9.6 mg/dL Normal 8.5-10.1 The [facility] Comment on above: Performed By: #### C MP, BNP, CMADM ####[facility] Odwfsxahvz0287 [place] [address]Dr. Marlin Gonzalez Chloride [Moles/Vol] 101 mmol/L Normal 98-107 The [facility] Comment on above: Performed By: #### C MP, BNP, CMADM ####[facility] Uxrlsepwkr5368 [place] [address]Dr. Marlin Gonzalez CO2 [Moles/Vol] 24.9 mmol/L Normal 21.0-32.0 The [facility] Comment on above: Performed By: #### C MP, BNP, CMADM ####[facility] Gtkseepsan9680 [place] [address]Dr. Marlin Gonzalez Creatinine [Mass/Vol] 3.73 mg/dL Critically high 0.55-1.02 The [facility] Comment on above: Performed By: #### C MP, BNP, CMADM ####[facility] Xrotyizymf2667 [place] [address]Dr. Marlin Gonzalez EGFR-AF ARGENTINE 14 mL/min/1.73m2 Critically low >=60 The [facility] Comment on above: Performed By: #### C MP, BNP, CMADM ####[facility] Gbcfkbrdrh0147 [place] [address]Dr. Marlin Gonzalez EGFR-NON AF ARGENTINE 12 mL/min/1.73m2 Critically low >=60 [facility] Comment on above: Performed By: #### C MP, BNP, CMADM ####[facility] Yakanzzjsm9993 [place] [address]Dr. Marlin Gonzalez Globulin (S) [Mass/Vol] 3.5 g/dL Normal [facility] Comment on above: Performed By: #### C MP, BNP, CMADM ####[facility] Dkqkmlygxr9188 [place] [address]Dr. Marlin Gonzalez Glucose [Mass/Vol] 190 mg/dL Critically high 74-106 [facility] Comment on above: Performed By: #### C MP, BNP, CMADM ####[facility] Kwumgfffxn6833 [place] [address]Dr. Marlin Gonzalez Potassium [Moles/Vol] 4.6 mmol/L Normal 3.5-5.1 [facility] Comment on above: Performed By: #### C MP, BNP, CMADM ####[facility] Uanapbmmmv[address] [place], [place] [address]Dr. Marlin Gonzalez Protein [Mass/Vol] 6.7 g/dL Normal 6.4-8.2 [facility] Comment on above: Performed By: #### C MP, BNP, CMADM ####[facility] Maqtzecpgg0251 [place] [address]Dr. Marlin Gonzalez Sodium [Moles/Vol] 136 mmol/L Normal 136-145 [facility] Comment on above: Performed By: #### C MP, BNP, CMADM ####[facility] Boflryujhw7[address] [place], [place] [address]Dr. Marlin Gonzalez Urea nitrogen [Mass/Vol] 59.0 mg/dL Critically high 7.0-18.0 [facility] Comment on above: Performed By: #### C MP, BNP, CMADM ####[facility] Yhcpkdamym[address] [place], [place] [address]Dr. Marlin Gonzalez Urea nitrogen/Creatinine [Mass ratio] 15.8 mg/mg Normal The [facility] Comment on above: Performed By: #### C MP, BNP, CMADM ####[facility] Szgnnmdcqq0320 [place] [address]Dr. Marlin Gonzalez PROTIMEon 08-29-2021 INR Coag (PPP) [Relative time] 1.14 {INR} Normal The [facility] Comment on above: Performed By: #### P TT, PT ####[facility] Zzhrgzaboe7850 [place] [address]Dr. Marlin Gonzalez INR GUIDELINES SEE BELOW Normal The [facility] Comment on above: Result Comment: WALI RED INR: 2.0 - 3.0 CONDITIONS NOT LISTED BELOW 2.5 - 3.5 FOR PROSTHETIC HEART VALVE REPLACEMENT 2.5 - 3.5 RECURRENT THROMBOSIS Performed By: #### P TT, PT ####[facility] Icgatjigle[address] [place], [place] [address]Dr. Marlin Gonzalez PT Coag (PPP) [Time] 12.2 s Critically high 9.0-11.6 The [facility] Comment on above: Performed By: #### P TT, PT ####[facility] Qoosevuqrr[address] [place], [place] [address]Dr. Marlin Gonzalez PTTon 08-29-2021 aPTT Coag (Bld) [Time] 31.3 s Normal 22.3-36.2 [facility] Comment on above: Performed By: #### P TT, PT ####[facility] Ykissmslcg[address] [place], [place] [address]Dr. Marlin Gonzalez URINE MICROSCOPIC ONLYon BACTERIA TRACE Abnormal NONE SEEN The [facility] Comment on above: Performed By: #### U MICRO, ERUR ####[facility] Ksdbjriwmu7[address] [place], [place] [address]Dr. Marlin Gonzalez Bacteria identified Cx Nom (U) INDICATED Normal The [facility] Comment on above: Performed By: #### U MICRO, ERUR ####[facility] Ephplbnnaa[address] [place], [place] [address]Dr. Marlin Gonzalez CAST NONE SEEN Normal NONE SEEN The [facility] Comment on above: Performed By: #### U MICRO, ERUR ####[facility] Ooaybfjahy9577 [place], [place] [address]Nc. Katherinearmando Carlos Crystals LM Nom (Urine sed) NONE SEEN Normal NONE SEEN The [facility] Comment on above: Performed By: #### U MICRO, ERUR ####[facility] Lnoamzdcbt0827 [place], [place] [address]Sq. Marlin Gonzalez Epithelial cells LM Ql (Urine sed) FEW Abnormal NONE SEEN /RARE The [facility] Comment on above: Performed By: #### U MICRO, ERUR ####[facility] Ubisglsmkl5911 [place], [place] [address]Oh. Katherinearmando Gonzalez MUCOUS NONE SEEN Normal NONE SEEN The [facility] Comment on above: Performed By: #### U MICRO, ERUR ####[facility] Rrtmcsxovb9580 [place], [place] [address]Cc. Marlin Gonzalez RBC NONE SEEN Abnormal 0-2 The [facility] Comment on above: Performed By: #### U MICRO, ERUR ####[facility] Vkrbzuaihv2363 [place], [place] [address]Uq. Marlin Gonzalez WBC 10-20 Abnormal NONE SEEN The [facility] Comment on above: Performed By: #### U MICRO, ERUR ####[facility] Jtxubmzxpz6137 [place], [place] [address]Ix. Marlin Gonzalez XR CHEST 1 Von 08-29-2021 XR CHEST 1 V Normal The [facility] Q - CULTURE,URINE,ROUTINEon 07-23-2021 CULTURE, URINE, ROUTINE SEE NOTE Abnormal N orthern [employer] Comment on above: Order Comment: [facility] performed at: [facility], [facility], [address] [facility], [address] [place] [address], [id number], Thread Singer: Lane Rae MD [facility] Collection Date/Time: [id number] [facility] Results Received Date/Time: [id number] [facility] Reported Date/Time: Result Comment: CULT URE, URINE, ROUTINE Micro Number: [id number] Test Status: Final Specimen Source: Not given [...] 6 304R #### [facility] Default [address] [place] [address] PTH INTACTon 07-12-2021 PTH, Intact 50 pg/mL Normal 15-65 The [facility] Comment on above: Performed By: #### P THINT ####[facility] Erzphcsijo8384 [place], [place] [address]Uq. Marlin Gonzalez UA RANDOMon 07-12-2021 Bilirubin Ql (U) Negative Normal NEGATIVE The [facility] Comment on above: Performed By: #### U A ####[facility] Wkmilgrqeg2698 [place], [place] [address]Ah. Marlin Gonzalez Clarity (U) CLEAR Normal CLEAR [facility] Comment on above: Performed By: #### U A ####[facility] Sasvhekexf2969 [place] [address]Dr. Marlin Gonzalez Color (U) LT. YELLOW Normal YELLOW The [facility] Comment on above: Performed By: #### U A ####[facility] Qundchljaz[address] [place], [place] [address]Dr. Katherinearmando Carlos Glucose Ql (U) Negative Normal NEGATIVE The [facility] Comment on above: Performed By: #### U A ####[facility] Eziexxeqof112[address] [place], [place] [address]Dr. Marlin Gonzalez Hemoglobin Ql (U) Negative Normal NEGATIVE The [facility] Comment on above: Performed By: #### U A ####[facility] Acogxwdjoj26[address] [place], [place] [address]Dr. Marlin Gonzalez Ketones Ql (U) Negative Normal NEGATIVE The [facility] Comment on above: Performed By: #### U A ####[facility] Pfnbjcnuhd20[address] [place], [place] [address]Dr. Marlin Gonzalez LEUKOCYTES TRACE Abnormal NEGATIVE The [facility] Comment on above: Performed By: #### U A ####[facility] Njdsbnoadr[address] [place], [place] [address]Dr. Marlin Gonzalez Nitrite Ql (U) Negative Normal NEGATIVE The [facility] Comment on above: Performed By: #### U A ####[facility] Vvgtfvfmvb535[address] [place], [place] [address]Dr. Marlin Gonzalez pH (U) 5.5 [pH] Normal 5-9 The [facility] Comment on above: Performed By: #### U A ####[facility] Icqhelfwwd[address] [place], [place] [address]Dr. Marlin Gonzalez SPEC GRAVITY 1.020 Normal 1.005-<=1.02 5 The [facility] Comment on above: Performed By: #### U A ####[facility] Awvzzrwylz18[address] [place], [place] [address]Dr. Marlin Gonzalez UA PROTEIN 100 mg/dl Abnormal NEGATIVE/ TRACE The [facility] Comment on above: Performed By: #### U A ####[facility] Fopagtxrts[address] [place], [place] [address]Dr. Marlin Gonzalez Urobilinogen Qn (U) 0.2 {Ryan'U}/dL Normal 0.2 - 1. 0 The [facility] Comment on above: Performed By: #### U A ####[facility] Iwnkdxlfem2862 [place] [address]Dr. Marlin Gonzalez URINE T PROTEIN CREAT RATIOo n 07-12-2021 UR PROT CREAT RAT 0.20 Normal The [facility] Comment on above: Performed By: #### U RTPCR ####[facility] Okmzhspkfa658[address] [place], [place] [address]Dr. Marlin Gonzalez UR TOTAL PROTEIN >12.0 Normal <=12.0 The [facility] Comment on above: Performed By: #### U RTPCR ####[facility] Mozqszbopf9[address] [place], [place] [address]Dr. Marlin Gonzalez URINE CREAT 58.89 mg/dL Normal 20.00-300.00 The [facility] Comment on above: Performed By: #### U RTPCR ####[facility] Bnamxmsfih[address] [place], [place] [address]Dr. Marlin Gonzalez FERRITINon 07-11-2021 Ferritin [Mass/Vol] 2286.0 ng/mL Critically high 8.0-252.0 The [facility] Comment on above: Performed By: #### F ERR, VITAD, FETIBC ####[facility] Etrvilfzei[address] [place], [place] [address]Dr. Marlin Gonzalez HEMOGRAM AND PLATELon 2021 Hematocrit (Bld) [Volume fraction] 32.8 % Critically low 36.0-48.0 The [facility] Comment on above: Performed By: #### H H ####[facility] Ihnbgfkmai[address] [place], [place] [address]Dr. Marlin Gonzalez Hemoglobin (Bld) [Mass/Vol] 10.3 g/dL Critically low 12.0-16.0 The [facility] Comment on above: Performed By: #### H H ####[facility] Sptbduhqvy769[address] [place], [place] [address]Dr. Marlin Gonzalez MCH (RBC) [Entitic mass] 30.0 pg Normal 26.7-34.0 [facility] Comment on above: Performed By: #### H H ####[facility] Umghgkcsda5838 [place] [address]Dr. Marlin Gonzalez MCHC (RBC) [Mass/Vol] 31.4 g/dL Normal 29.9-35.2 [facility] Comment on above: Performed By: #### H H ####[facility] Ppgzctqenu5542 [place] [address]Dr. Marlin Gonzalez MCV (RBC) [Entitic vol] 95.6 fL Normal 81.0-99.0 [facility] Comment on above: Performed By: #### H H ####[facility] Otzfbbinfm4877 [place] [address]Dr. Marlin Gonzalez PLT 241 103/ul Normal 150-450 [facility] Comment on above: Performed By: #### H H ####[facility] Tmkqxdgkaf7847 [place] [address]Dr. Marlin Gonzalez RBC 3.43 106/ul Critically low 4.20-5.40 [facility] Comment on above: Performed By: #### H H ####[facility] Bhkiwuswmc[address] [place], [place] [address]Dr. Marlin Gonzalez WBC 8.5 103/ul Normal 4.0-11.0 [facility] Comment on above: Performed By: #### H H ####[facility] Zfzbsjvrlp[address] [place], [place] [address]Dr. Marlin Gonzalez IRON AND TIBCon 07-11-2021 % SATURATION 27.1 % Normal [facility] Comment on above: Performed By: #### F ERR, VITAD, FETIBC ####[facility] Rqkpvsdzrl9950 [place] [address]Dr. Marlin Gonzalez Iron [Mass/Vol] 55.0 ug/dL Normal 50.0-170.0 [facility] Comment on above: Performed By: #### F ERR, VITAD, FETIBC ####[facility] Ovxikitevn1326 [place] [id number]. Marlin Gonzalez TIBC DIRECT 203.0 ug/dL Critically low 250.0-450.0 [facility] Comment on above: Performed By: #### F ERR, VITAD, FETIBC ####[facility] Vlylmiihjz8685 [place] [address]Dr. Marlin Gonzalez PROF 14(COMP METB)on 022 Albumin [Mass/Vol] 3.1 g/dL Critically low 3.4-5.0 [facility] Comment on above: Performed By: #### C MP, URIC ####[facility] Uoqhnijwrd0399 [place] [address]Dr. Marlin Gonzalez Albumin/Globulin [Mass ratio] 0.8 {ratio} Normal [facility] Comment on above: Performed By: #### C MP, URIC ####[facility] Gcisjcdutu0630 [place] [address]Dr. Marlin Gonzalez ALP [Catalytic activity/Vol] 127 U/L Critically high 46-116 [facility] Comment on above: Performed By: #### C MP, URIC ####[facility] Eriutdjgbx[address] [place], [place] [address]Dr. Marlin Gonzalez ALT [Catalytic activity/Vol] 23 U/L Normal 14-59 [facility] Comment on above: Performed By: #### C MP, URIC ####[facility] Dsbnwjsvgl7196 [place] [address]Dr. Marlin Gonzalez Anion gap [Moles/Vol] 12.6 mmol/L Normal [facility] Comment on above: Performed By: #### C MP, URIC ####[facility] Abzxtatqon2353 [place] [address]Dr. Marlin Gonzalez AST [Catalytic activity/Vol] 17 U/L Normal 15-37 [facility] Comment on above: Performed By: #### C MP, URIC ####[facility] Prjerjyxlq2714 [place] [address]Dr. Marlin Gonzalez Bilirubin [Mass/Vol] 0.3 mg/dL Normal 0.2-1.0 [facility] Comment on above: Performed By: #### C MP, URIC ####[facility] Ytbouiiujr777[address] [place], [place] [address]Dr. Marlin Gonzalez Calcium [Mass/Vol] 9.6 mg/dL Normal 8.5-10.1 [facility] Comment on above: Performed By: #### C MP, URIC ####[facility] Udlzhynfsi9256[address] [place], [place] [address]Dr. Marlin Gonzalez Chloride [Moles/Vol] 103 mmol/L Normal 98-107 The [facility] Comment on above: Performed By: #### C MP, URIC ####[facility] Qdctdzeivb21[address] [place], [place] [address]Dr. Marlin Gonzalez CO2 [Moles/Vol] 24.7 mmol/L Normal 21.0-32.0 [facility] Comment on above: Performed By: #### C MP, URIC ####[facility] Giydwvukuf06[address] [place], [place] [address]Dr. Marlin Gonzalez Creatinine [Mass/Vol] 2.41 mg/dL Critically high 0.55-1.02 [facility] Comment on above: Performed By: #### C MP, URIC ####[facility] Wfvqifdtzx316[address] [place], [place] [address]Dr. Marlin Gonzalez EGFR-AF ARGENTINE 24 mL/min/1.73m2 Critically low >=60 [facility] Comment on above: Performed By: #### C MP, URIC ####[facility] Invndyggmz77[address] [place], [place] [address]Dr. Marlin Gonzalez EGFR-NON AF ARGENTINE 20 mL/min/1.73m2 Critically low >=60 [facility] Comment on above: Performed By: #### C MP, URIC ####[facility] Vbtfhearns[address] [place], [place] [address]Dr. Marlin Gonzalez Globulin (S) [Mass/Vol] 4.1 g/dL Normal [facility] Comment on above: Performed By: #### C MP, URIC ####[facility] Rqmhjcdqdm568[address] [place], [place] [address]Dr. Marlin Gonzalez Glucose [Mass/Vol] 143 mg/dL Critically high 74-106 [facility] Comment on above: Performed By: #### C MP, URIC ####[facility] Bdrdkkjozk1050 [place] [address]Dr. Marlin Gonzalez Potassium [Moles/Vol] 4.3 mmol/L Normal 3.5-5.1 The [facility] Comment on above: Performed By: #### C MP, URIC ####[facility] Gvmbetjgvx5823 [place] [address]Dr. Marlin Gonzalez Protein [Mass/Vol] 7.2 g/dL Normal 6.4-8.2 The [facility] Comment on above: Performed By: #### C MP, URIC ####[facility] Iijwlomsmn[address] [place], [place] [address]Dr. Marlin Gonzalez Sodium [Moles/Vol] 136 mmol/L Normal 136-145 [facility] Comment on above: Performed By: #### C MP, URIC ####[facility] Nbhlthqkze685[address] [place], [place] [address]Dr. Marlin Gonzalez Urea nitrogen [Mass/Vol] 46.0 mg/dL Critically high 7.0-18.0 The [facility] Comment on above: Performed By: #### C MP, URIC ####[facility] Bvitpuslng[address] [place], [place] [address]Dr. Marlin Gonzalez Urea nitrogen/Creatinine [Mass ratio] 19.1 mg/mg Normal The [facility] Comment on above: Performed By: #### C MP, URIC ####[facility] Jlkfghqpkw[address] [place], [place] [address]Dr. Marlin Gonzalez URIC ACID SERUMon 07-11-2021 Urate [Mass/Vol] 7.5 mg/dL Critically high 2.6-6.0 The [facility] Comment on above: Performed By: #### C MP, URIC ####[facility] Deilmdmpgw[address] [place], [place] [address]Dr. Marlin Gonzalez VITAMIN D 25 OHon 07-11-2021 VIT D 25-OH 28.0 ng/mL Normal [facility] Comment on above: Performed By: #### F ERR, VITAD, FETIBC ####[facility] Yfqxaffwjf[address] [place], [place] [address]Dr. Marlin Gonzalez VIT D RANGES SEE BELOW Normal [facility] Comment on above: Result Comment: <20 ng/mL Vit D deficient 20 - <30 ng/mL Vit D insufficient 30 - 100 ng/mL Vit D sufficient >100 ng/mL Potential Toxicity Performed By: #### F ERR, VITAD, FETIBC ####[facility] [id number] [address]Dr. Marlin Gonzalez Coding Summaryon 2021 Coding Summary HTMLBase 64 VfhdpgrgUSi1bKw+PGhlYWQ+ KE5CBIGoF95tcBGugW8BW4bO KB1VZSQHIOUADN2HFU6frJK4 YTuzN6KqehHc GjsjaTHiGN32UDf9IWL6xNzl NGqqtP1jyDNrZ2k4ReXpRY88 iK18LToiRRZrBbW8AvWoxvwy bWFy R9oeZvJiuGZdAsl+PHRhYmxl IHdpZHRoPScxMDAlJyBzdHls ZR5nOl9iHROoVTAkmVlqrXRa OiBj w0vdDUHjEMtjCU0gwKtcS1Lf sGY5LTKjz0j3Jf37sJP+PHRk KFF4wIczKWmik453EkMno7or IDM3 oOHdFIxmVKJ1I86qe2X9LVHo FGEuXVF0oLW6fN2yiCnokhvw O2VjbGJtJvJ9EMF4vDSarE1m bGln itxgeK3dPuv+N98NKL8NORGI LJ0DUwv6X2PuXyzuiLC+PC90 LRIyQY04yGWatOLtn5uhbIw0 JzEw EWMfIPL6vZhvRDvvq9RaADEn Q65vjBMus0H0SRHsvFgyhVRj SjAoqBQ6dW5xEQxzaazab9ce dzsn Ywvvv1crhp08yG50A36cXQea IWXdBXF3QQCnUUHggXbxvg9b tO1tBa5+TMlwz0agm0cxsIm1 IjIw BKRfoxYifIskJWL8m2JlCc60 U7OumAijy6AbIep5vz24eWNq j8I5qIC7XDitUYBnaO3eIScj ZnQ6 ORIrQvVjfU76rNAfLCupQj3v aLyowHwtLT2kQTNffffzJQQj lP6nCIScpLQumEjoEA0iTGLt bjtm n273GaKaFUT1VSDheEMhO1Gx aK5oKcMyXSVqZJAqO9NyaKCy ZAmnM317DQcoGfC4MNOjscNn Y2Fs EYEbmTpuBcA6y2V1Th9Zi4Id grzbLTJ9MCqjWUQdEmZ3ZbJq IlG3B0WrVcl7FGOemYnfAX3c J3Bh SRLlruvrkamydDQ0VHFlJLWo iK55wABiXBxiWp9up6X0g953 CQNyWCXgnC63Iv7laYxvQZYm dCBU rR3gduojr4yyztnlCuCcCNAj QMf7TEx3JPZpjUonYpSaSNE2 GwG3RMR0aFJlqD2yuDgepork dG9w Oyc+Z00luR3sGIM3LNH2llny NXXevqAmEW20GQ12G5ZhLipw dGFibGU+DPMhphMsoDbhCX8a YmFj r4vnx6PjCBmxX1RpBSTnVIte Ukb0ADKtMAD7hUP3hJ7aBWVm PNjdc7P9yJT2P4FddjTtoy2w b2xs KNTeDKaoR57ejXTbq4J5JRGl oHG2YMQfjKodMiYcjT43Lfs+ IKIacRtgq6PfCcsxn7plh1mk dGg9 EzAeYLKwopHolUxyGOW6b5Kf Gk64E67gUHhrNOEaAJWnAQTh XKZtpTwynw3xwF4tNz2+PGNv bCB3 uJQ6vQ9fLASeMrD8IBtvD239 YfQonPBfVqhbl3pgz0ikgOh1 AhZxYEZnogCusRczUDL6d6Ur Lz48 T35fIOxvFGMaBGRxBSLoQPKn aKmsdp3nzL4iQa7+IW7hv9ov ze93iM62eZT+ZNZrOGD1zDzj PSdw PPFocT8hNQcgFrZ8ZYQgKsRw kD95lXYgHNwoBq2duSjjaFmm VL2vLJPoztgay779WoXug4fg IDEw lQDbTZnmJKA5F09ru5A2BCAe SPDmYAD4jDJ1vE7ewJsnnnjm bGVmdDsgdmVydGljYWwtYWxp Z246 IHRvcDsnPlBhdGllbnQgTmFt HPy0N5YtQiw8HOZogCsdID4k kSMfLZmoMp0viWxcbSgxGW2c NTBp yjmbt447JhUnr4scMUYwdUQs VOoyZHR6M89pf8A3DNEsIYQp UJZ6rRY2fI0bcStiyyrxtNTt dDsg xhVciZpaGEdbFMpdZ892KSFl lAbrWlUckqDjQCOntJX8CK87 FD19cXWhz3D3pDF1S2EaKBGa bmct tzshpSX5LTFkEQUumT26Oo8l uLdxTn9eLUHwGEC0UXRwcDGa L0PiqF0pZoLgYHEtERXkZ6Rs eHQt AJfdH260MNbaJaC6MCBmjjMf Y4PvJFHcoEqrVoH2o9J4Pb2E B6N8YU92WZ75tJIcu8D7nKS2 J3Bh UYUtzhdyqjymlAX8OSOfGZXs aU36Tr3dyVreGv9mTBHtPXQ0 TGGwfUWxU2UqiL8mKwBqNZZw MDAw F5LpdCUzXLwsD134HOwuLfT9 GVBnkgXwW3MoWCScbWgkErR1 m1P8Ua5ARYx8AF67TJ76aMBs c3R5 tLA1W3YbBYDpyydawvwowSO7 FNIiEZYtyF62Bu8lpDurCk2n LLMtUCO8VVHiaOLlF0NrhV2r OiAj GDThHZXlD8SvhXVqXNxiJ553 DOxuOlH3FSIvjeZqD9FiOJFl hLugZhF8l7H6Ui9AVOJnGF30 IFR5 jPR7EQ37QR38Z0BtCgpjuSXx bGU+PHRhYmxlIHdpZHRoPScx TJMaZkYsdCpfOW9tEf4dXUPn LWNv tTrxnZRzQeReb0apBFXqZWge ID5ezQihZ5GdpDK3GOWmi4s2 Au41J91lC3MuoIW+PGNvbCB3 aWR0 hU2sDiMeVeU3CXenT299YtFf pBFlKniyz0hhi1cbaGw9XkW8 WZXfjqGjwMozTOB0w9IxXc80 Y29s IHdpZHRoPSIxNSUiIHZhbGln ys9xlS2iHm1+DVXdbOH8cCT4 iR3qRcVlNxK6WHxoD773WoVa cCIv Drwgz5bod1wraWw7FsMgUYMb mzEtwAosICO6i4NyKw95S2Dv wOead8HaBrx5lz15kBCrc7Y9 bGU9 X0UnNUFcarkdqMKiqZrsPW8d IMKucbigLEKnqA5vYCTpQ3d4 UdCcQzG8LFjmJ8BydvW4XJTo cHQg JAkuSWN1A94nj6U4BZTvTJYx ZCC8dNK3iZ2oiPoaslgbbASg pVpnrdYzzUiqZWmhZTpgW584 IHRv lChxHPNoxR9nVDQfbVHfeNtg EK0wQIPkqicsTqYTT77QAykj OdPNNQNINN12Q2GkDyq0OKUe dHls ZA8otQRtJJizPh6prXeslFxl EJ4cHLHzarfbYEDwsL7zLVOf sHMdjGwuZX8gMWCcdtzup060 OiAx FEZ2XDIkaKMpZ1TlyL6zTnSk XPPhOQRxI3VunCGjLQgqF081 YNyaHdV1UYXtfoBnE0RsRCXy aWdu OqN4g9L4Og0fOO9tZF4qGBE2 JN83LX63xNJpo8P8qXN4A5An EPDcacrqvlviqQG9CWUgJGHu aW47 zKVeWEjvLs4tz9Y4m469SEIy KBQpxF45Uu4bgKflTHUqsKAO xF2nxhbwr3bgnxaiXmWeJXCu MDt0 TKs2WRVjdCfdDgElOYZ0MfP2 OCM2kGXwuM5auOvtbhdwpW1r Oyc+ZnUgWZSihnI0I7AaIgy2 ZCBz qXukNV1cbSJeNZfpEh1yhJnz rCtwJE5oZJQqtlgjCYLawD0f GQDqrIPgyKgpDJ1mPWLqxdej b250 BrGkOFQ9VGOhnOSqF7TysL8v UpAzCBPhLAMvS8JbyAXmPDcw W712ZYkhMqA7GWYoomPdN1Ae LWFs sXfuLlN9c6A8Iu9AKN8EUHD9 B9ZsFvz8GOXykNyeUG0ffPPb JOfrNw1bqYbyxEmbQQ6xGUTp bjtw TYUajK6cHKIaaSBgfKtkMU2v ZEJjmwtjc595TxIpVQC3XEEl uZJbE6EarA8gZpXoZLTqSPBf O3Rl iTKmKUflZ685IRqcEtB1GDNp fbDeF8MsQKCuaQgiSqH2b8T8 Xr8FsdXyqSvunpF4E0NhRqbk dHI+ DB88KKPaCX49vYKlwVXxv5rn tKj7LvSyMNYwEPC7nUetXCem a1JkFVIrK35ccGOso8V1GRJs bGxh vLFeCeFvoRM4qS1zTSqcdylr y9umbzjyVeiad6osnc52bC65 G06uDLbkWAXiMRMgZPMjQFQu bGln zp6zxX4sSa8+QGMdoXT8jQP0 fS0tLtBeVsR3SIcvU631RbUf kAQnVsvxi2hcf1fihKz1AdSg JSIg lbGwcSddHJE7t6TpOt29L66x IHdpZHRoPSIyMCUiIHZhbGln tc6rbP3gSi1+CA0gn3mhbc94 cD48 dHI+IURhOQX1wBqpDMkwCREi bP7bQRvkKqS8SPDmAxPdwE60 rRPiMAvtDx3tjOrjsZzaWG9u NTBp vldpf248BrDek3jiNEVzmTBv BOsaMWO4X22zs1A2BRLfJXMq EBJ8jNE4gJ6muJafzydhgVWd dDsg blEirFqmJCypIEolY856TIAr qTrsYaKqxPJzI1arbdOGYW4u OjwvdGQ+QEGtYNE6fSfbWBot YWRk tK4zOABqU7v2WxZoTwA8XGdq E1GpqtG2ENAubUFiACCdbVDP oH8ougmns8prhzdaDlLnYOBh MDt0 MTr2QPWlvKtwOlMxBXT6StF7 QNX4lMDzvZ6ssFvxqhezsP1z Oyc+RklOOjwvdGQ+PHRkIHN0 eWxl HDkfOKDtwJ4tGPSrS3v3XmTs XzG4WJdrP6JwqcJ8TUJhzIDk DTPrhNTUvV0pnhgiq6jipziy IzAw KBOuMFc3HCp2MLOylRgoUxIl RRT1HyA4XVC3tBBsxB3zmAhw dqtanB3lLng+TVJOOjwvdGQ+ PHRk PDM6yZjhJDaySZSxtJ7bTDUg C1k7RvUrHmR9KQpcC1GsomT6 WVFnsAJaTVRpzHFIvV5nopoo b2xv sadfRdEpJTVkZUg8NCd7QQQw oQuuSuYgGLE4EdX2DPQ9lWAn nI8dkTfnnqvgiY6xUnw+UGF5 ZXI6 EO43PC11F6YzLzgorPPqnVW+ PHRhYmxlIHdpZHRoPScxMDAl QwCofZzrTX0vFh0uCRXeIHZb bGxh cHN (more content not included)... [facility] Consent Formson 02-21-2021 Consent Forms [id number] [id number]#1.00OTG TIFF [facility] Consent Forms [id number] [id number]#1.00OTG TIFF [facility] Consent Forms [id number] [id number]#1.00OTG TIFF [facility] Discharge Instructionson Discharge Instructions [id number]#1.00OTG [facility]-21-[facility]21 MAGR Preoperative Record MAGR Pre-Op Record Summary Primary Physician: Carlo Wyman DO Finalized Date/Time: 02/21/21 13:46:01 Pt. Name: CINTHYA WILSON/Sex: 1945 FEMALE Med Rec #: [id number] Physician: Carlo Wyman DO Financial #: [id number] Pt. Type: I Room/Bed: [facility] Admit/Disch: 02/19/21 06:01:00 - 02/20/21 15:31:00 Institution: [...] Signed By: Kimberly Ortiz RN 02/21/21 13:46 [facility] Outside Recordson 02-21-2021 Outside Records [id number] 1041 [id number]#1.00[facility] [id number]#1.00OTG [facility] Provider Orderson 02-21-2021 Provider Orders [id number] 1041 [id number]#1.00OTG [facility] Telemetry Stripson 2 Telemetry Strips [id number] 1041 [id number]#1.00OTG [facility] BMP Standardon 02-20-2021 eGFR Non AA 18 mL/min/1.73m2 Invalid Interpretation Code [facility] Comment on above: Performed By: #### 1 [id number], [id number], [id number], [id number] ####[facility] (DEFAULT)[address] [place] [address] eGFR AA 22 mL/min/1.73m2 Invalid Interpretation Code [facility] Comment on above: Result Comment: Candle Wicker hero Kidney disease could be indicated at eGFRs of less than 60 ml/min/1.73m2. Kidney Failure is indicated at less than 15 ml/min/1.73m2 Performed By: #### 1 [id number], [id number], [id number], [id number] ####[facility] (DEFAULT)[address] [place] [address] Anion gap [Moles/Vol] 17.0 mmol/L Normal 5.0-19.0 [facility] Comment on above: Performed By: #### 1 [id number], [id number], [id number], [id number] ####[facility] (DEFAULT)[address] [place] [address] 18185 Calcium [Mass/Vol] 9.0 mg/dL Normal 8.9-10.3 [facility] Comment on above: Performed By: #### 1 [id number], [id number], [id number], [id number] ####[facility] (DEFAULT)[address] [place] [address]393 Chloride [Moles/Vol] 100 mmol/L Low 101-111 [facility] Comment on above: Performed By: #### 1 [id number], [id number], [id number], [id number] ####[facility] (DEFAULT)[address] [place] [address] 57165 CO2 [Moles/Vol] 19 mmol/L Low 21-32 [facility] Comment on above: Performed By: #### 1 [id number], [id number], [id number], [id number] ####[facility] (DEFAULT)[address] [place] [address] 21712 Creatinine [Mass/Vol] 2.61 mg/dL High 0.60-1.30 [facility] Comment on above: Performed By: #### 1 [id number], [id number], [id number], [id number] ####[facility] (DEFAULT)[address] [place] [address] [place] [address] Glucose [Mass/Vol] 215.0 mg/dL High 74.0-118.0 [facility] Comment on above: Performed By: #### 1 [id number], [id number], [id number], [id number] ####[facility] (DEFAULT)[address] [place] [address] 48543 Osmolality 282 mOsm/L Invalid Interpretation Code [facility] Comment on above: Performed By: #### 1 [id number], [id number], [id number], [id number] ####[facility] (DEFAULT)[address] [place] [address] 85028 Potassium [Moles/Vol] 5.0 mmol/L Normal 3.6-5.1 [facility] Comment on above: Performed By: #### 1 [id number], [id number], [id number], [id number] ####[facility] (DEFAULT)[address] [place] [address]4571 Sodium [Moles/Vol] 131.0 mmol/L Low 136.0-144.0 [facility] Comment on above: Performed By: #### 1 [id number], [id number], [id number], [id number] ####[facility] (DEFAULT)[address] [place] [address] 33387 Urea nitrogen [Mass/Vol] 50 mg/dL High 8-26 [facility] Comment on above: Performed By: #### 1 [id number], [id number], [id number], [id number] ####[facility] (DEFAULT)[address] [place] [address] 87396 Urea nitrogen/Creatinine [Mass ratio] 19.0 mg/mg High 4.6-16.2 [facility] Comment on above: Performed By: #### 1 [id number], [id number], [id number], [id number] ####[facility] (DEFAULT)[address] [place] [address] Consultation/Specialist Note on 02-20-2021 Consultation/Specialist Note Patient: [...] on: 02/20/2021 07:15 EST] JOHN EDEN Normal [facility] Extra Mauro 02-20-2021 Tube Collected Yes Invalid Interpretation Code [facility] Comment on above: Performed By: #### 1 [id number], [id number], [id number], [id number] #### [facility] (DEFAULT) [address] [place] [address] Performed By: #### 1 [id number], [id number], [id number], [id number] ####[facility] (DEFAULT)[address] [place] [address] Inpatient Patient Summaryon 02-20-2021 Inpatient Patient Summary [address] [address] Patient Discharge Instructions Name: CINTHYA WILSON : 1945 Patient Address: [address] [place] [address] [facility] [address] Primary Care Provider: Name: LILY ALDRICH After you are discharged if you find you have any questions, please, call [phone] ext [phone] to speak to a nurse. Discharge Diagnosis: [...] alcohol and/or drug addiction problems; contact the [facility] 02/09 Crisis Hotline -text 4HRKQ it 377178. If you received any narcotics, sedation, or [...] business decisions or sign any legal documents [facility] would like to thank you for allowing us to assist you with your healthcare needs. The following includes patient education materials and information regarding your injury/illness. CINTHYA WILSON has been given the following list of follow-up instructions, prescriptions, and patient education materials: Follow-up Instructions With: Address: When: Carlo Wyman [address] [place] [address], [address] [place] [address] Business (1) 02/27/2021 1:15 PM With: Address: When: LILY NASIMA [facility], [address] [facility] [place], [place] [id number] Business (1) Medications During the course of [...] 1 tab(s) Or (more content not included)... [facility] POCT Glucose Levelon 022 Glucose [Mass/Vol] 164 mg/dL High 74-118 [facility] Comment on above: Performed By: #### 4 [id number] ####[facility] (DEFAULT)[address] [place] [address] Progress Note - Nurseon 02-10 Progress Note - Nurse Refused noon FSBS [Electronically Signed on: 02/20/2021 15:51 EST] Daniela Corbett RN [Verified on: 02/20/2021 15:51 EST] Daniela Corbett RN [facility] Anesthesia Noteon 02-19-2021 Anesthesia Note Patient: [...] on: 02/19/2021 09:50 EST] Armando Sotomayor MD [facility] Anesthesia Note Patient: WILL WILSON Age: [...] risk of pressure sore / SNOMED CT 296343441 / Confirmed Stage 4 chronic kidney disease / SNOMED CT 1324920024 / Confirmed COPD (chronic obstructive pulmonary disease) / SNOMED CT 08287718 / Confirmed CHF (congestive heart failure) / SNOMED CT 05963443 / Confirmed CAD (coronary artery disease) / SNOMED CT 71947127 / Confirmed Diabetes / SNOMED CT 072251837 / Confirmed GERD (gastroesophageal reflux disease) / SNOMED CT 115636939 / Confirmed Hypertension / SNOMED CT 1867852255 / Confirmed DJD (degenerative joint disease) / SNOMED CT 6188369681 / Confirmed Sleep apnea / SNOMED CT 869269877 / Confirmed Histories Family History: No family history items have been selected or recorded. Procedure history: Lumbar discectomy (164034507). Fusion (520033014). Comments: 01/25/2021 14:33 Kimberly Andino RN Neck CTR - carpal tunnel release (6015568983). Comments: 01/25/2021 14:34 Kimberly Andino RN Bilateral section (88450668). Appendectomy (050482606). Abdominal hysterectomy (925790843). Tonsillectomy (383751689). Colonoscopy (642464024). EGD (esophagogastroduodenosc opy) gastric outlet reduction (7295066598). Bilateral cataracts (700501312). Social History Electronic Cigarette/Vaping Assessment Electronic Cigarette [...] Oriented. Review / Management Laboratory Results Plan [place] [employer]#(ASA) physical status classification: Class [...] . [Electronically Signed on: 02/19/2021 08:21 EST] Armando Sotomayor MD [Verified on: 02/19/2021 08:21 EST] (more content not included)... Normal [facility] BMP Standardon 02-19-2021 eGFR Non AA 14 mL/min/1.73m2 Invalid Interpretation Code [facility] Comment on above: Performed By: #### 1 [id number] #### [facility] (DEFAULT) [address] [place] [address] eGFR AA 16 mL/min/1.73m2 Invalid Interpretation Code [facility] Comment on above: Result Comment: Candle Wicker hero Kidney disease could be indicated at eGFRs of less than 60 ml/min/1.73m2. Kidney Failure is indicated at less than 15 ml/min/1.73m2 Performed By: #### 1 [id number] #### [facility] (DEFAULT) [address] [place] [address] Anion gap [Moles/Vol] 17.0 mmol/L Normal 5.0-19.0 [facility] Comment on above: Performed By: #### 1 [id number] #### [facility] (DEFAULT) [address] [place] [address] Calcium [Mass/Vol] 9.0 mg/dL Normal 8.9-10.3 [facility] Comment on above: Performed By: #### 1 [id number] #### [facility] (DEFAULT) [address] [place] [address] Chloride [Moles/Vol] 100 mmol/L Low 101-111 [facility] Comment on above: Performed By: #### 1 [id number] #### [facility] (DEFAULT) [address] [place] [address] 36652 CO2 [Moles/Vol] 18 mmol/L Low 21-32 [facility] Comment on above: Performed By: #### 1 [id number] #### [facility] (DEFAULT) [address] [place] [address] 15817 Creatinine [Mass/Vol] 3.32 mg/dL High 0.60-1.30 [facility] Comment on above: Performed By: #### 1 [id number] #### [facility] (DEFAULT) [address] [place] [address] 28919 Glucose [Mass/Vol] 110.0 mg/dL Normal 74.0-118.0 [facility] Comment on above: Performed By: #### 1 [id number] #### [facility] (DEFAULT) [address] [place] [address] Osmolality 279 mOsm/L Invalid Interpretation Code [facility] Comment on above: Performed By: #### 1 [id number] #### [facility] (DEFAULT) [address] [place] [address]382 Potassium [Moles/Vol] 4.9 mmol/L Normal 3.6-5.1 [facility] Comment on above: Result Comment: Spec imen slightly hemolyzed; results may be adversely affected Performed By: #### 1 [id number] #### [facility] (DEFAULT) [address] [place] [address] Sodium [Moles/Vol] 130.0 mmol/L Low 136.0-144.0 [facility] Comment on above: Performed By: #### 1 [id number] #### [facility] (DEFAULT) [address] [place] [address] Urea nitrogen [Mass/Vol] 61 mg/dL High 8- [facility] Comment on above: Performed By: #### 1 [id number] #### [facility] (DEFAULT) [address] [place] [address] Urea nitrogen/Creatinine [Mass ratio] 18.0 mg/mg High 4.6-16.2 [facility] Comment on above: Performed By: #### 1 [id number] #### [facility] (DEFAULT) [address] [place] [address] Coding Summaryon 02-19-2021 Coding Summary HTMLBase 64 RtajlymgPSl2cGo+PGhlYWQ+ TL6DCHBvM94yyTBcvP5NM3nM HO1KRCQKTUFBRT4EBP0zjAD4 ZLolW6PzsrEt CdjyzCTaAK31KFu9QCZ5oDen NRkkjD6uxASeI0j5KbDqIB20 wB38WAzsRKAfIbX3WkEnpsfu bWFy H3dsUeKdtIZrVli+PHRhYmxl IHdpZHRoPScxMDAlJyBzdHls KQ3aWx1qHSPnOKXhoSjetEBk OiBj a3lkJVFfARroPN3txOnoF9Wh nMW1BBLkg8h4Ld27tGM+PHRk JOI3wUihEFyes055QfQiz7ff IDM3 kSOyWLjbMQM7Z66sn3P2PMHd WAEqZPU7oRY2hC7ywQppxqru X4XmwWCkQdN0DHW1tTObsA8f bGln vnwmxX0vHdo+F50XVZ6VGOXO CL2GRjf1K5JzRqnxtZE+PC90 KJLkKD59dNKogVZee8ypqNh8 JzEw COUxOIC9wNdbEGsab7SnBWUg O23kyDAch8W7MMBooZcsfWQq QjSinAL7oJ0mSTntqnlct2fp dzsn Ypybs6nspn23yL22I65nBJjq RPTbKCR8YCNnVQJpfPurtl1y jB2hQh5+YUjdw7kyz3rnaBc4 IjIw KDDgjvIuuRidUYE8r4FrNw45 H5QcjKyxn1YvHke4nx54gUNq l5M7pZQ7VMndRBZwsG1qIYee ZnQ6 BPQbChUokJ00zURnYMviZf4b gTbpwRfyGX9dLEDpurxqNFDy yY1aLBHsgQTavNwbXP3vZGEf bjtm j754GeYqXEA8HYLzrNQnF8So uG0lWoFlYOAvGYMkU9HmhQLl NEymH222RWcmHbE5WLWqufTu Y2Fs AQJndGwcCbP7r1E1Nq0Zb5Pr thguWUF1AVgkWSCfMgKyJiCs UjA4A6FnZwn5GVKtkIagWW6s J3Bh RFGajeikbawubGQ7IZHlRXVl sW43iLHoITfrNj1yp2L1c099 YCIgJDPuuK77Bz6pcVnlFIFe dCBU pQ1wbwqzx5oryunbNoMyVTBz CZf9LFi4JGPsyZtdFhNjCRU9 IbU8USJ2eKHbeB4naGyvhpmf dG9w Oyc+D00zrT6cVFL9VCK0kemn BLUpbiZoFW51GQ87J7LsFwyi dGFibGU+QXGufsExhSefIQ9f YmFj e8qou5InYDxuF2MtRPViBWzo Aus6FCMwPBM8rKF2dS3qZIAk MRvsp9F9lMB3P8YcbqRnty3b b2xs YQKcZMixF01rnVAly3R2TWYy zHE1TYVzfTzmQoEpfT59Cuj+ UPBbnChbi6AkTpgbe9sio9lg dGg9 PaAuBAJxzpEjpMhxKRY8b6Li Gk30O79eJWjmHFMtCRUvCIDo LXOdvFzbki1mcN3yEw5+PGNv bCB3 iAX0nQ0yPISoYvY1QXazJ665 PoQotEJhOwsyb1jnx4epwXz6 LfBpUIObzhEalMmyINS9h8Uk Lz48 H94oWDqjHQNqEMPwDYIpGNMp aQeonz9msK7kKj7+FF9qc2na dd95gH85vUB+GTAjZOB7nGyr PSdw RCDgxP6tIRtuHkD5OPUsErOm kA84dWUnMIpaQw8nnHdezRio VA6gQBLatslxn763KlXxg6ts IDEw cHIdPOtzNSF0U61vz8T9EZQo MKSoGQS9vZF2lU1ukVcoehdv bGVmdDsgdmVydGljYWwtYWxp Z246 IHRvcDsnPlBhdGllbnQgTmFt BYa6H9LlXns2WJErkGxsKF9d eFKqRPdlUc9lnXcgjYezSZ2d NTBp pnltb547MmEfb6asLIPrhGZc UMwaNGB0M37la6H5GTNwVGGd NXF3qLR6qF1wnLzddhndhUUz dDsg nuPlcPmeBWwdXXprR726XTEk oJrnGhYodhGpGHHoqHX1IA67 OO04rHFpx0R5aZZ2H3QtENUi bmct iqflqDJ8GFVmZDLmcD98Kv1s hKthCb4kUIGbPHM8RPXapAHu F7MpvI4gVgMbLNSbJTTwX7Te eHQt MUbvC911JLcrVzS6AVKrniTx M6IpAXWrbSraAhF6i9T0Eg8N P1P9UY43TI47yUJlz2E2jSS2 J3Bh BNZpzrlpzlpilUP3ZFUuOWHi vH82Ti9jkAeyTw1uWHNsFHP6 VFNsrYVqS3TwiL6qXaPfLCLc MDAw L6PkaHZkDOymF190RRhmPwD6 XNLejoSoT7TvHBAowDcgJdS5 k3U6Fp4UIIn2UK53GB58gSPy c3R5 nLG7H5HqVKZevfdyybcgbEO8 ZDAnKLRnzZ75Sc3ppXbaLz2l XNOcSBC5DXYmjYTvY3ZplL5r OiAj BNOuPDEuY5CzeWIpSEikP750 ESuwOpQ1HDXsalBzH1RlXEWf xBgtEpI7o1B0Fl0MQLAkXV14 IFR5 mFI0EH65PQ30C3EoIwgpeLFr bGU+PHRhYmxlIHdpZHRoPScx BWXgMmSetOsiAL9eUq0ePVCp LWNv cRsbdBHcHsHrq5kpFAJeUNsz NR6nrEnvL7DqoLW1VVFdf7d5 Vf51Z17yY9GuyBY+PGNvbCB3 aWR0 rR6qEzQjEfJ5FRnsH062RdVy qICbOghqc7aus9fkdBl8LlQ3 AVBlxyWuxNakXUT1n0PfWt75 Y29s IHdpZHRoPSIxNSUiIHZhbGln bg9qdL4aBg0+XIQjdPK1iIO6 oZ1gSjYcJrU0AClyC648TuRb cCIv Rvcqd5exj0iqeUs7YdTmNGLi upCqdRchNNP6u2AcMl93Q7Eu vIylz6BjCpr0mo29nESvj2Q7 bGU9 D7FdHIKgwwtruWNqvVuhRP1t DZNkgdhvXAHlfZ5jRURwI4g1 KgLsGwW7MEodT5QxraE4ZQDd cHQg ZFvmXNR3I81ua4L5ENYaLLMd ATC8oUH3mG7hzYafteqeqSPh cMgrspSoyMexTDqcVKicE436 IHRv bKsvDLEskL2qSHShrAYvrFmn MD3dPFZesbksAuMZW53QVtjn VkZUGKDVSI74P9RkTre7USHy dHls TU8dwBQmBMmtNd0exOugsRie XV5tAIMhlqbvIRBsdC8pRGBj yYNqkBztAM6lGNOmpxvwk335 OiAx YTA3OGOxzJMvZ4QdiZ4zQcOd WMHrYEYeM8UuzXEzKKvbH834 NIfxByN8AAAbueCfO3BfIJOw aWdu OgC7x0L2Sb9iNL6jZM3vOCW8 NJ16VZ39nVDum9L1wXQ7V0Ml WTXsfbfnopdkaZB2SVLyJJJp aW47 nKAwYOntEb8dy3Z0g355OXWt OIMqtK75Nq6fjZepPLPfmIRH sO1ytxuvp6kbojtoAxVlPLCc MDt0 BBo9OJUntXzpJbWvBTU4XsU8 GGL8fSGknX5ecTujqpzbwQ3m Oyc+QzXbHEHlapS6G5EpRtd6 ZCBz tYhlLQ7dfXEuYVfwGk9ynMgw cKywFM9yGTCtmkxcXVPlfG8k LKVqnCQnoGvtDU4fGWBdwaqc b250 JsWbGJG4QIUcnZOkX8FqxL2h YgMwNIDgGCRwT3WfnZTeBCii M383ZVhuEsR2EJBqxpEzQ5Ix LWFs gHuzPkI9d1E3Jz7ECD7CRFH3 A4MtSmg9GIQpbJkxQL2bdBCw GIsbMw3siRmenSvdFF3dEXCn bjtw EKDvcW4gRLYsaMOneOkrTB0i MAFuqurvx514FiPfVCS6AZBd iYLfT4SfcL3gVvQrCNLpVMHk O3Rl sSXtZBtiT266HTvvYpY5CCHl hdSoL0BrVGChfUrnTkZ0v3O7 Rb9QANdvgDJ+QT12av14P9Wg Ymxl Wia3IZNmBXY7jZM1qE2zUAKw JHono4U9lEE4O0JdlnRxqa6a p4fiMNPjBOagX67pnMFfe4X8 IGVt iLP6UBZoyEbxIrGnjV27Wzg+ BXPjcLdat3PwPrkxs1xzh6mq aQe5CuVpMUDprbYurRcrZFA3 b3Ai Im42F11zXMrwKYAmLUWsPDVq AYNsjTjeuk2zzG1oPs7+PGNv zEU2qZC8uM5eFlFoZxW6XQqa Z249 QsCeyDCpIhnuf0niu1vjlHb2 XnYyNDXyvhZfwHaaXVP4b5Fw Dn21X7NfwOipi0JjMbe8ls76 dGQg k5X4lUD5R3IaLWMnxdscyZQo nRvkWC9lIZRscxhyNACdnI4w OSBkS1o3LxAtBxA1TZftY4Ih bnQ6 UUDzfWGmWPKspBHJmB2qiaxd e2rkdwkeJpTbWILkCZs4BBd7 YLKddJmqEvVyLVE6YgY2FCX5 aWNh oY5otGdgmxrqoX3tWpm+UGh5 a2shcEFiPP3naMS5FH04BU66 jZYsd6T6bGL0B4RkLRTtvpyw cmln mIX9RWLiCPRrwJ53Nu4lgNxs Uy0lWGAvIDE0SKNlyUPxB4Po vX4bTrMlMMGiDXFnP4OxyLYe YWxp L709WOfzHsO5PFUwggAxD8Qy XPWnuVxrLfJ2r1S1Dm0MUG25 SR96DE98iWAyl2B9uYO1S4Nm ZGRp upabhwsygOD0JFNvRRJoaW53 Kz6sdAgiUs5qUKThMSK8FGXq aTSsY7TzgO7iZgWuKABxTSSz O3Rl pOXkZGxdC802CHphKbS1NZPt hzCfH4ZdCBXfwDyyVrB1l4N0 Tb3BJt19FK36EX55zTAfm7F8 bGU9 U0VyQQDcdkkrvchljGQ6LDUv GBSypP40Gj9agOnhIg2hVQGy OOC8GNQaqFJxW1EzqB3fKwRr MDAw WSHaV8JmnTVqPBsmW823FNcs RlR8WHAuyaEeE7SuYZMoeWgs DxA9u6Z9Rt3OJMxwqdh7N7Ss Pjwv dHI+II74GSRqUH34eIIswPDk c5zxuYg7FwSdPGRpWBT7nPxh YOelx0OfQFUpG65unBYxy8W8 IGNv bGx (more content not included)... [facility] Intraoperative Record [facility] Intra-Op Record Summary Primary Physician: Carlo Wyman DO Finalized Date/Time: 02/19/21 11:47:08 Pt. Name: CINTHYA WILSON/Sex: 1945 FEMALE Med Rec #: [id number] Physician: Carlo Wyman DO Financial #: [id number] Pt. Type: I Room/Bed: [facility]/ Admit/Disch: 02/19/21 06:01:00 - Institution: Case Times [facility]R Entry 1 Patient In Room Time 02/19/21 07:41:00 Out Room Time 02/19/21 09:39:00 Anesthesia Start Time 02/19/21 07:41:00 Stop Time 02/19/21 09:39:00 Surgery Start Time 02/19/21 08:19:00 Stop Time 02/19/21 09:35:00 Last Modified By: Shante Warner 02/19/21 09:41:47 Case Attendance [facility]R Entry 1 Entry 2 Entry 3 Case Attendee Carlo Wyman, Dayna Martinez RN, DO Role Performed Surgeon - Primary Salesforce Administrator Salesforce Administrator Time In 02/19/21 07:41:00 02/19/21 07:41:00 02/19/21 [...] Brittany E CSFA Role Performed Scrub Personnel A And P Mechanic A And P Mechanic Time In 02/19/21 07:41:00 02/19/21 07:41:00 02/19/21 07:41:00 Time Out 02/19/21 09:39:00 02/19/21 09:39:00 02/19/21 09:39:00 Procedure Arthroplasty Shoulder Arthroplasty Shoulder Arthroplasty Shoulder Total Reverse(Right) Total Reverse(Right) Total Reverse(Right) Last Modified By: Shante Warner 02/19/21 Timmy, Shante 02/19/21 Timmy, Shante 02/19/21 09:41:59 09:41:59 09:41:59 Entry 7 Case [...] Yes Total Reverse Primary Surgeon Carlo Wyman Modifiers Right Jos DO Surgeon Comment RIGHT REVERSE TOTAL Start [...] By: Shante Warner 02/19/21 Shante Warner 02/19/21 08:22:44 08:23:31 Patient Positioning MAGR Pre-Care [...] from sig (more content not included)... Normal [facility] MAGR Intraoperative Record MAGR Intra-Op Record Summary Primary Physician: Finalized Date/Time: 02/19/21 08:17:10 Pt. Name: CINTHYA WILSON D.O.B./Sex: 1945 FEMALE Med Rec #: [id number] Physician: Carlo Wyman DO Financial #: [id number] Pt. Type: I Room/Bed: / Admit/Disch: 02/19/21 [...] Laura RN Role Performed Anesthesia Care Provider Salesforce Administrator Time In 02/19/21 07:17:00 02/19/21 07:17:00 Time [...] Signed By: Sandra Guthrie RN 02/19/21 08[facility]17 [facility] PACU Record MAGR PACU Record [facility] Physician: Carlo Wyman DO Finalized Date/Time: 02/19/21 12:44:27 Pt. Name: CHAUNCEYShadCINTHYA D.O.B./Sex: 1945 FEMALE Med Rec #: [id number] Physician: Carlo Wyman DO Financial #: [id number] Pt. Type: I Room/Bed: 201/1 Admit/Disch: 02/19/21 06:01:00 - Institution: PACU Case Times MAGR Entry 1 In PACU I 02/19/21 09:42:00 Discharge from PACU 02/19/21 10:30:00 I Last Modified By: Sandra Guthrie RN 02/19/21 12:44:24 Finalized By: Sandra Guthrie RN Document Signatures Signed By: Sandra Guthrie RN 02/19/21 12:44 [facility] 02-19-2021 MAGR Postoperative Record MAGR Phase II Record Summary Primary Physician: Carlo Wyman DO Finalized Date/Time: 02/19/21 11:19:15 Pt. Name: CINTHYA WILSON /Sex: 1945 FEMALE Med Rec #: [id number] Physician: Carlo Wyman DO Financial #: [id number] Pt. Type: I Room/Bed: [facility]/ Admit/Disch: 02/19/21 06:01:00 - Institution: Phase II [...] Signed By: Edie Randhawa RN 02/19/21 11:19 [facility] Nutrition Noteon 02-19-2021 Nutrition Note Chart [...] for any changes; follow, assist prn. ts Normal [facility] Operative Report - Surgeon/P ahmet 02-19-2021 [...] blood loss: 50 Complications: No complications Findings: [id number] in the glenohumeral joint, superior migration of [...] condition [Electronically Signed on: 02/19/2021 09:50 EST] Carlo Wyman DO [Verified on: 02/19/2021 09:50 EST] Carlo Wyman DO Normal [facility] POCT Glucose Levelon 022 Glucose [Mass/Vol] 154 mg/dL High 74-118 [facility] Comment on above: Performed By: #### 4 [id number] #### [facility] (DEFAULT) [address] [place] [address]91 Glucose [Mass/Vol] 100 mg/dL Normal 74-118 [facility] Comment on above: Performed By: #### 4 [id number] ####[facility] (DEFAULT)[address] [place] [address] Patient Handouton 02-19-[address] ROME [...] or concerns, please call the office at [phone] -Follow up as scheduled [facility] XR Shoulder 1 View Righton 0 02-19-2021 XR Shoulder 1 View Right EXAM: XR [...] MD 02/19/21 12:41 p Technologist: Dagoberto HEARD [facility] 2019 Novel Coronavirus (CoVI D-19), [place] LCon 02-16-2021 SARS-CoV-2 (COVID-19) RNA [place]+probe Ql (Unsp spec) Not detected Invalid Interpretation Code Not Detected [facility] Comment on above: Order Comment: [id number] Result Comment: This nucleic acid amplification test was developed and its performance characteristics determined by [employer]. Nucleic acid amplification tests include RT- PCR [...] detected) result in this assay. Performed At: [address] [id number] Darcie Scott PhD Ph:[phone] Performed By: #### 6 [id number] ####[facility] ([facility])[address] [place] [address] Progress Note - Nurseon Progress Note - Nurse Spoke with pt and informed her to be at hospital at 6am and NPO after MN, she verbalizes understanding. [Electronically Signed on: 02/16/2021 10:50 EST] Liz Garsia RN [Verified on: 02/16/2021 10:50 EST] Liz Garsia RN [facility] Coding Summaryon 02-15-2021 Coding Summary [employer]Base 64 HxvjujdrUNc9gXk+PGhlYWQ+ ME3ESNOkE79vbIPntX2ID4fP CK2PIPHVIXYLWP6WVF6roVV4 IRziP0XxyxFw TfsdzINyRJ53PLf9SVL9oEcj NBaqyV7ejPRqV0d8RlLlIB06 eA06IGkdAGApJfP6FgUyyvna bWFy M9lhIrEueNXwKfk+PHRhYmxl IHdpZHRoPScxMDAlJyBzdHls OT0yEx1hZREdUKMkwMkexPGr OiBj f6doACYdOEjwKG2hhLqxG3Vh iCT9UFWeh7l7Yx45nJZ+PHRk CIU7lSalGBqnv073DyNia7gg IDM3 kWRrYHapRQD0G86oi6C5YUHy ZIViIPT0vPF9jY2dzBvmaamn K1JfjAEyGeW2FUM3bIHjtM8n bGln qttniW5uBci+R68FKX7UVPGZ BB8EBee5M9TgKljkfTA+PC90 MFSqIA15uMKppKAnv5hyvBx1 JzEw OLHmHAX1gCekYSsij4YeATUn O30dkAZkw8D0CARvpKwvwWJk DxIdmCL0uV4hKCrfonhgs3cv dzsn Fznja3gkct11cA75X84cTQee GALjVOE0YJWaMINxkLatcc4k rG9bYt6+ITcsq2ovl6jaaKz5 IjIw DJPglwRfrJklHPG2u3AhJe80 C4GxeGclf3PgIvk7ja07lSKc m6U3bKP0PLjtMDQuuM3lRQwm ZnQ6 ILTzKrWgpG00rDPjCVuqPf9w aMgiyYbiFM5kAARrmkmwKDRe iW5kZSGfdVQomPzqNL9fOYSu bjtm l865YqSiKCM9VWMhdMVuI2Em jI2qXxMeKJMnXLVuX1IqhHLm KNqvT265AEifCpU3HCSpirBz Y2Fs XASmwGomPxJ7y9I3Oe7Tr2Tm xhjrNNF9RSsiYTGxXoR0WnCz QxB8N4VzDma0QAVhyIymTJ4s J3Bh SUJojsqrhlbdcZA0WWKjFCPn nA11uAUiAMdmPe3jc5Z5s187 KORhPXVptL13Xf4xmJpkVOSr dCBU xX6zjuytw0sdulwsYmZeKCBz AHo2IEi0MRTsrJmhBaMbPDR6 NlX1HCZ0oCVazL5lcZhuolob dG9w Oyc+F30zrL2zRBI1AWN8keyt HQHysnEmUA58KP95L7QlYowp dGFibGU+WRQhrhNerBcrFI5r YmFj k2sos2FkYWuvC8CgHLCdAShl Owp7RGGrAMA7gNX4zR1kQYOq JBqgd5G0dJE3S0UjmiDgou4r b2xs VVGmBTpyB86jhFXds1E2VGGx lEJ5DWJegBgfJiOldB96Ujg+ LAIdvWjhv8QwEuevt8elv0ff dGg9 YhCiDNEoonUagNzqMTT7p9Nx Kz19E84aUOvwHHIzBYStZDWj EOWpaDfwkm3wmQ2cAq7+PGNv bCB3 qMX4zX6hZRZpBnL7IXqpU232 RpSdrAEqTiczk6yof7glqUl0 QwHsTMBttuDehFqmHIU5k9Fm Lz48 B35xOSdkMUHmETSnXJHbWDUu hMyvrt4bmI3tEm1+SJ3xh7bs mu43bJ19kYD+QBWuCZD2pPxk PSdw EJZyvG8xDPjqEsU9WLFlCnOk fH18nAChFSjtFj6tuNawzOyw JQ7aPZAlrhjed493NbLic8gk IDEw lUTcTGiyRXP8L03kr2H1WIUx PWBaBTQ9eMY5fR8pbErdloyv bGVmdDsgdmVydGljYWwtYWxp Z246 IHRvcDsnPlBhdGllbnQgTmFt VUv1T4KwKgp1TTNazEiqJL6d sFXxQYerQg5rhVvbqRvvGU1x NTBp yyfwa492KhYwq5bgMPFjgSRj BPqaSGG3Q18sp2Z5DCQzWJDv QXT7zHQ8pO4diRagbtnsbDIy dDsg fjRwgPjdZJsuTJmeN631DBYa aZbjTjMggvEfLAByaHC0LW40 IQ95fFDpv4H4cRT2V9RcEUTt bmct zjourEW6VKNwADFgjP18Xs8p cWweQy7eEYDfPQB4DBMthRGf O9TdiZ6tIhHbWQFxHETjM3Eb eHQt JEmsY149VVpdReI5TGRlbjEw S9MqUAYitRteNpR3k3T6Qw9D R3M8DG15OM13aRExs1Y1mXS6 J3Bh VBJsulztvmtzzMZ1FAAwNHRy fM13Rs3apZlmTx9yGUUmMHK3 AISyuEMrF2EedZ0cWbVeQVUv MDAw T1YvhTTvPVpoJ913ELgsZbP7 JLUmfgYtX3KsYGRkyMwpXfE5 j1M3Po0ODMx6PQ50CV50dSFk c3R5 sJO1D4ThNHCkbnuzoyyjbZY3 JCYxVJKvdY82Cm7poManWl6r TTUyRXP6TGUoaTHkO5RtuP1e OiAj XLRoSZQzW0WvvRFtMYhlF221 GVnbSkE5XTGntpJlO5QgEEVf pKzxDmZ3o0Z8Wn0YEVEhRW71 IFR5 yNI2KG39SP46Z2NaNgyjkLCp bGU+PHRhYmxlIHdpZHRoPScx SUAzOyNtnTasBH9bVv3aZUDh LWNv xPiewBWyWxKic8ctGJNyWKmu NM9hqQbyQ5PawKA5BSQpb2d5 Mu43Z87zN6VpxDI+PGNvbCB3 aWR0 iC9bMgMlTfC3OEerS617HoSb sAXlNnveh7huv8cwfAy1EiU3 EADqraCzeKnlJXP3d9XgOc95 Y29s IHdpZHRoPSIxNSUiIHZhbGln he6qiX9qEg9+WJKnkAL7tUS3 kY4bEfJrJfH7HIczJ051XxWt cCIv Jcbuu8ktz0idkAj0AgQdFWYu czDzlDhfONW3i0AiWm92A8Kc eKmsm9QkSdu6ha09fWPce0G3 bGU9 B1GfULJdvzefcQBbjRmmIV1p RCNyospgJJBhsG9wSORnH6t9 UdXbNeV9YGcdM8MpqpV0KPUz cHQg MArbNDC8Q97ll1H7JIAaGTAb SXM0kLT2mV1mpLlrlqlndFHc kErzmfDhwEasXSgbSMweK960 IHRv eNkkHYDaxM7oTMRubMOlpRtr PZ3jWEVlcofuWvXXQ34YIkll FcVQARVUPZ66P7LgJyp8IGEe dHls GV7seEKiVZavLf2tqYynfDju ZY1eFXWrirhfXWTpnV4gWMDk pDAdsTphLW5lHCTqzxuzl914 OiAx UXM1YLLknTQqD1SxeZ9uZzBv YEZiHNAeU5FsvKNpPEjiX705 OVsaOyV8EJXmdhFzE6KxCTIk aWdu RmW3a6N8Jm4kTX2xLV2tXGV9 PT37AI81xCIzj9L5qRC5Y3Tu XMUakbgxjfvkpGH1TVHjYBPh aW47 dGFrDRjsLs5dp3N4n145GCPw SZLybF35Dr5bfOcmRDGakBYD lH5sndhwm9avmaseMdTwHOUg MDt0 ZVb2BVOikIjkOkMzXWZ7HoF9 BDT2vXTiqV8adQcqclklaP6b Oyc+XzJwPCClswI0J9CjPew4 ZCBz qPkfYA0coCXiBJchVy7exVqc kIikCM7fSMOzrrwtUWMfjW2x TIDhgURqyUshZC9oGKTgvlow b250 WiGtOVI5HXJesVYgP6BwvO0j EfDvSVVvQYGvT1JwwNEgHBtz Q187DTgvDwQ9MASonxKnC7Xb LWFs jYzkYmM6z7J2Gg3ISK6JEIF0 M9WqImr8GQKmnPncOK8yxBSv JQvxTo8upGflrFcbDO1yUDLa bjtw SMNpnG7vGUEujUQlfGgaFN4e VJFrhwkvl247WlXzMNQ5EOOl bARdQ4EdaD4vSxKbDLOaGCWm O3Rl aZHzYAwyT067LMdpKgP1JHPn zgVtX9EqUDMzrFybMeE9q8N1 Lq3BLQsuhEV+IY42tk91G3Jc Ymxl Atr7GEKmXMM9yUS0vM8iKMAl ATumm8F0jRT4O5PxwlObmg4z u2pgOZDdSAucL44mvDWgv8H8 IGVt pYX2CPQmyDreOyNhkU12Ugt+ IBEcoIlzy4ReXqchl4ade2dh qDl4VfNmPTKmabFqqJnyWNE3 b3Ai Dq26Y20hMSvnYEMfDKYgTNHw WLCysIlpob3rfL4bTt7+PGNv oGU6fSG0bU0jEsQiPfO7ETmf Z249 ZlLwhVPfEkvcl6eig8besWi4 AcTdOHQnmlCagNfsTLL6f9Jm Io12Z2DatQtud6LuSpv2cw82 dGQg c1V5nBJ9L6LrKJMegtxjdZSv pLyxVK7oSNTqvrrmCPPcyC1p YVApQ1w5GrHgGrP1TBmdB9Gz bnQ6 DZNjzUAdHXTqnMRCvJ9gauux y7kenpjjJwCfLVHdFQh3OAl2 BZTpgZijOyPqUZJ7TqX5DZM9 aWNh cS4vzTppdizkqF3rBdu+UGh5 u9flgFSoWV7tbOS0PY04YF27 xYTub3J4eSF2A5YhBBXrskmx cmln jLZ0WVGxMALlcX87Nj3jtFsh Sq6sJHYrFEE2UNDppWFfZ4Qd fB5eQvPbCPRrHVEkY7PzmMQi YWxp B406FYitGbH5LLIndkGjR8Ho RXAhkMbkEpG0z0V5Tp1SLL10 AY72HB97qQJyy5V7qDT2P8Ec ZGRp zzvcibjciGR0RNKuRENfxE56 Eg1adBcbSy6iQWOkMZV0TXQq nIQfB5KrgY3hRpAjPGGvDKNf O3Rl oVAdRJegF866TEosJxO5JBKg glLcS3CzADHniRxcBqU8j3K6 Kq9BAn15MF57CL37fCTjk1E2 bGU9 I5XoLWYdgdyvcknkqHO4KQDe FPEzzW53Jc1ulLxaBt9lRVGb OPP8RWLnzGYiH8FjsN3zWhJo MDAw SGUrL8PqiXPyQSzdD788QZod WgU8QLBfooNlA0CfDLZecSno ThE0l2U8Zz5IDJachoq7S6Uh Pjwv dHI+GJ56VNQfUS17pUIbfIQv s2zrlWs5VyXyEDKqXOK1yOhs MWicq5CaHJCaP78yxFFqv6W8 IGNv bGx (more content not included)... [facility] Progress Note - Nurseon 01-11 Progress [...] on: 02/01/2021 07:58 EST] Kimberly Ortiz RN [facility] Progress Note - Nurseon 01-11 Progress Note - Nurse Dr. Desai did ch art review and no new orders received. [Electronically Signed on: 01/29/2021 15:23 EST] Lynette Valadez RN [Verified on: 01/29/2021 15:23 EST] Lynette Valadez RN [facility] C Urineon 01-27-2021 C Urine <10,000 cfu/ml [facility] Comment on above: Performed By: #### 6 [id number] #### [facility] (DEFAULT) [address] [place] [address] 26865 C MRSA Screenon 01-26-2021 C MRSA Screen Negative [facility] Comment on above: Performed By: #### 1 [id number] ####[facility] (DEFAULT)[address] [place] [address] 23667 Provider Orderson 01-26-2021 Provider Orders [id number] TIFF [facility] .Auto Diff 1on 01-25-2021 Auto Gilchrist % 10 % Normal 02-21 [facility] Comment on above: Performed By: #### 1 [id number], [id number], [id number] #### [facility] (DEFAULT) [address] [place] [address] 43810 Baso Abs# 0.0 x10 Normal 0.0-0.2 [facility] Comment on above: Performed By: #### 1 [id number], [id number], [id number] #### [facility] (DEFAULT) [address] [place] [address] 99721 Basophils/100 WBC (Bld) 0.2 % Normal 0.2-2.0 [facility] Comment on above: Performed By: #### 1 [id number], [id number], [id number] #### [facility] (DEFAULT) [address] [place] [address] 16201 Eos Abs# 0.8 x10 High 0.0-0.4 [facility] Comment on above: Performed By: #### 1 [id number], [id number], [id number] #### [facility] (DEFAULT) [address] [place] [address] 07386 Eosinophils/100 WBC (Bld) 8.0 % High 0.9-4.0 [facility] Comment on above: Performed By: #### 1 [id number], [id number], [id number] #### [facility] (DEFAULT) [address] [place] [address] 25909 Lymph Abs# 2.2 x10 Normal 1.3-2.9 [facility] Comment on above: Performed By: #### 1 [id number], [id number], [id number] #### [facility] (DEFAULT) [address] [place] [address] Lymphocytes/100 WBC (Bld) 21 % Normal 14-48 [facility] Comment on above: Performed By: #### 1 [id number], [id number], [id number] #### [facility] (DEFAULT) [address] [place] [address] Gilchrist Abs# 1.0 x10 High 0.0-0.8 [facility] Comment on above: Performed By: #### 1 [id number], [id number], [id number] #### [facility] (DEFAULT) [address] [place] [address] Neut Abs# 6.5 x10 Normal 1.5-9.2 [facility] Comment on above: Performed By: #### 1 [id number], [id number], [id number] #### [facility] (DEFAULT) [address] [place] [address] Neutrophils/100 WBC (Bld) 61 % Normal 44-88 [facility] Comment on above: Performed By: #### 1 [id number], [id number], [id number] #### [facility] (DEFAULT) [address] [place] [address] Standard 01-25-2021 eGFR Non AA 16 mL/min/1.73m2 Invalid Interpretation Code [facility] Comment on above: Performed By: #### 1 [id number], [id number], [id number] #### [facility] (DEFAULT) [address] [place] [address] eGFR AA 19 mL/min/1.73m2 Invalid Interpretation Code [facility] Comment on above: Result Comment: Candle Wicker hero Kidney disease could be indicated at eGFRs of less than 60 ml/min/1.73m2. Kidney Failure is indicated at less than 15 ml/min/1.73m2 Performed By: #### 1 [id number], [id number], [id number] #### [facility] (DEFAULT) [address] [place] [address] 70838 Anion gap [Moles/Vol] 15.0 mmol/L Normal 5.0-19.0 [facility] Comment on above: Performed By: #### 1 [id number], [id number], [id number] #### [facility] (DEFAULT) [address] [place] [address] 15477 Calcium [Mass/Vol] 9.0 mg/dL Normal 8.9-10.3 [facility] Comment on above: Performed By: #### 1 [id number], [id number], [id number] #### [facility] (DEFAULT) [address] [place] [address] 73226 Chloride [Moles/Vol] 97 mmol/L Low 101-111 [facility] Comment on above: Performed By: #### 1 [id number], [id number], [id number] #### [facility] (DEFAULT) [address] [place] [address] 28624 CO2 [Moles/Vol] 23 mmol/L Normal 21-32 [facility] Comment on above: Performed By: #### 1 [id number], [id number], [id number] #### [facility] (DEFAULT) [address] [place] [address] 96279 Creatinine [Mass/Vol] 2.92 mg/dL High 0.60-1.30 [facility] Comment on above: Performed By: #### 1 [id number], [id number], [id number] #### [facility] (DEFAULT) [address] [place] [address] 43036 Glucose [Mass/Vol] 163.0 mg/dL High 74.0-118.0 [facility] Comment on above: Performed By: #### 1 [id number], [id number], [id number] #### [facility] (DEFAULT) [address] [place] [address] 01129 Osmolality 279 mOsm/L Invalid Interpretation Code [facility] Comment on above: Performed By: #### 1 [id number], [id number], [id number] #### [facility] (DEFAULT) [address] [place] [address] 47039 Potassium [Moles/Vol] 4.1 mmol/L Normal 3.6-5.1 [facility] Comment on above: Performed By: #### 1 [id number], [id number], [id number] #### [facility] (DEFAULT) [address] [place] [address] 55298 Sodium [Moles/Vol] 131.0 mmol/L Low 136.0-144.0 [facility] Comment on above: Performed By: #### 1 [id number], [id number], [id number] #### [facility] (DEFAULT) [address] [place] [address] 58209 Urea nitrogen [Mass/Vol] 48 mg/dL High 8-26 [facility] Comment on above: Performed By: #### 1 [id number], [id number], [id number] #### [facility] (DEFAULT) [address] [place] [address] Urea nitrogen/Creatinine [Mass ratio] 16.0 mg/mg Normal 4.6-16.2 [facility] Comment on above: Performed By: #### 1 [id number], [id number], [id number] #### [facility] (DEFAULT) [address] [place] [address] CBC w/ Auto Diffon Erythrocyte distribution width (RBC) [Ratio] 14.7 % Normal 11.5-15.0 [facility] Comment on above: Performed By: #### 1 [id number], [id number], [id number] #### [facility] (DEFAULT) [address] [place] [address] 94891 Hematocrit (Bld) [Volume fraction] 32.1 % Low 33.7-40.4 [facility] Comment on above: Performed By: #### 1 [id number], [id number], [id number] #### [facility] (DEFAULT) [address] [place] [address] 74097 Hemoglobin (Bld) [Mass/Vol] 9.7 g/dL Low 11.3-15.9 [facility] Comment on above: Performed By: #### 1 [id number], [id number], [id number] #### [facility] (DEFAULT) [address] [place] [address] 34892 Instr WBC 10.6 x10 Invalid Interpretation Code [facility] Comment on above: Performed By: #### 1 [id number], [id number], [id number] #### [facility] (DEFAULT) [address] [place] [address] 45595 Man Diff? Auto Normal [facility] Comment on above: Performed By: #### 1 [id number], [id number], [id number] #### [facility] (DEFAULT) [address] [place] [address] 14381 MCH (RBC) [Entitic mass] 30 pg Normal 24-34 [facility] Comment on above: Performed By: #### 1 [id number], [id number], [id number] #### [facility] (DEFAULT) [address] [place] [address] 19331 MCHC (RBC) [Mass/Vol] 30 g/dL Normal 26-37 [facility] Comment on above: Performed By: #### 1 [id number], [id number], [id number] #### [facility] (DEFAULT) [address] [place] [address] 96268 MCV (RBC) [Entitic vol] 98 fL Normal 81-100 [facility] Comment on above: Performed By: #### 1 [id number], [id number], [id number] #### [facility] (DEFAULT) [address] [place] [address] 12835 Platelet 379 x10 Normal 138-427 [facility] Comment on above: Performed By: #### 1 [id number], [id number], [id number] #### [facility] (DEFAULT) [address] [place] [address] 87767 Platelet mean volume (Bld) [Entitic vol] 9.8 fL Normal 6.3-10.2 [facility] Comment on above: Performed By: #### 1 [id number], [id number], [id number] #### [facility] (DEFAULT) [address] [place] [address] 21700 RBC 3.28 x10 Low 3.70-5.30 [facility] Comment on above: Performed By: #### 1 [id number], [id number], [id number] #### [facility] (DEFAULT) [address] [place] [address] WBC 10.6 x10 High 3.5-10.5 [facility] Comment on above: Performed By: #### 1 [id number], [id number], [id number] #### [facility] (DEFAULT) [address] [place] [address] ANES Marissa 09-18-2020 ANES POST HNO ID: [id number] Author: Robin Michael MD Service: Anesthesiology Author [...] 18, 2020 TIME: 4:22 PM PAGER/CONTACT #: [phone] Normal [facility] APTTon 09-18-2020 aPTT Coag (Bld) [Time] 24.1 s Normal 23.0-32.4 Cl [facility] Comment on above: Result Comment: Unfr actionated [...] laboratory APTT reagent in use throughout the [facility]. Performed By: #### P T, CMP, CBC, PTT ####[facility] [place], [place] [phone] BRIEF OP NOTon 09-18-2020 BRIEF OP NOT HNO ID: [id number] Author: Kaleb Young MD Service: Urology Author Type: Resident Type: Brief Op Note Filed: 09/18/2020 3:09 PM Note Text: UROLOGY BRIEF OP NOTE Log ID: [id number] Surgery/Procedure Date: 09/18/2020 Incision/Procedure Start Time: 2:16 PM Incision Close/Procedure End Time: 2:59 PM Patient Info: 75 year old female Surgeon(s)/Proceduralist (s) and Uptwister Tender(s): Surgeon(s) and Role: * Yamileth Martin MD [...] 18, 2020 TIME: 3:07 PM PAGER/CONTACT #: [phone] Normal [facility] CBCon 09-18-2020 Absolute nRBC <0.01 Normal <0.01 [facility] Comment on above: Performed By: #### P T, CMP, CBC, PTT ####[address] [phone] Erythrocyte distribution width (RBC) [Ratio] 17.8 % High 11.5-15.0 [facility] Comment on above: Performed By: #### P T, CMP, CBC, PTT ####[place] [address] [place] [phone] Hematocrit (Bld) [Volume fraction] 34.1 % Low 36.0-46.0 [facility] Comment on above: Performed By: #### P T, CMP, CBC, PTT ####[place] [address] [address] [place], [place] [phone] Hemoglobin (Bld) [Mass/Vol] 10.3 g/dL Low 11.5-15.5 [facility] Comment on above: Performed By: #### P T, CMP, CBC, PTT ####[place] [address] [place] [phone] MCH 28.9 pG Normal 26.0-34.0 [facility] Comment on above: Performed By: #### P T, CMP, CBC, PTT ####[place] [address] [place], [place] [phone] MCHC (RBC) [Mass/Vol] 30.2 g/dL Low 30.5-36.0 [facility] Comment on above: Performed By: #### P T, CMP, CBC, PTT ####[facility], [place] [phone] MCV (RBC) [Entitic vol] 95.5 fL Normal 80.0-100.0 [facility] Comment on above: Performed By: #### P T, CMP, CBC, PTT ####[place] [address], [place] [phone] Platelet mean volume (Bld) [Entitic vol] 10.0 fL Normal 9.0-12.7 [facility] Comment on above: Performed By: #### P T, CMP, CBC, PTT ####[place] [address] [address], [place] [phone] Platelets (Bld) [#/Vol] 270 10*3/uL Normal 150-400 [facility] Comment on above: Performed By: #### P T, CMP, CBC, PTT ####[place] [address], [place] [phone] RBC (Bld) [#/Vol] 3.57 10*6/uL Low 3.90-5.20 [facility] Comment on above: Performed By: #### P T, CMP, CBC, PTT ####[facility], [place] [phone] WBC (Bld) [#/Vol] 11.82 10*3/uL High 3.70-11.00 [facility] Comment on above: Performed By: #### P T, CMP, CBC, PTT ####[place] [address] [address], [place] [phone] CYTOLOGYon 09-18-2020 CYTOLOGY Specimen originated from [facility] Specimen #: [id number] Submitting Physician: YAMILETH MARTIN M.D. (Q10) SPECIMEN [...] A: RENAL PELVIS LEFT, WASHING THIN PREP Non-Patient Clerical Assistant B: RENAL PELVIS LEFT, BRUSHING THIN PREP Non-Patient Clerical Assistant Date of Report: 09/19/2020 Date of Procedure: 09/18/2020 Date of Receipt: 09/18/2020 Submitted by: YAMILETH MARTIN M.D. (Q10) Location: E020 Diagnostic interpretation performed at [facility], [address] [place] [address]. CLIA Number: [id number] Normal [facility] Comp Metabolic Panelon 09-18 Albumin [Mass/Vol] 3.5 g/dL Low 3.9-4.9 [facility] Comment on above: Performed By: #### P T, CMP, CBC, PTT ####[facility] [facility] [address] [place], [place] [phone] ALP [Catalytic activity/Vol] 107 U/L Normal 34-123 [facility] Comment on above: Performed By: #### P T, CMP, CBC, PTT ####[facility] [place], [place] [phone] ALT [Catalytic activity/Vol] 24 U/L Normal 7-38 [facility] Comment on above: Performed By: #### P T, CMP, CBC, PTT ####[facility] [place], [place] [phone] Anion gap [Moles/Vol] 16 mmol/L Normal 9-18 [facility] Comment on above: Performed By: #### P T, CMP, CBC, PTT ####[place] [address] [address], [place] [phone] AST [Catalytic activity/Vol] 25 U/L Normal 13-35 [facility] Comment on above: Performed By: #### P T, CMP, CBC, PTT ####[place] [address] [address], [place] [phone] Bilirubin [Mass/Vol] 0.2 mg/dL Normal 0.2-1.3 [facility] Comment on above: Performed By: #### P T, CMP, CBC, PTT ####[place] [address] [address], [place] [phone] Calcium [Mass/Vol] 9.0 mg/dL Normal 8.5-10.2 [facility] Comment on above: Performed By: #### P T, CMP, CBC, PTT ####[place] [address] [place], [place] [phone] Chloride [Moles/Vol] 101 mmol/L Normal 97-105 [facility] Comment on above: Performed By: #### P T, CMP, CBC, PTT ####[facility], [place] [phone] CO2 [Moles/Vol] 22 mmol/L Normal 22-30 [facility] Comment on above: Performed By: #### P T, CMP, CBC, PTT ####[facility], [place] [phone] Creatinine [Mass/Vol] 2.13 mg/dL High 0.58-0.96 [facility] Comment on above: Performed By: #### P T, CMP, CBC, PTT ####[facility] [address] [place], [place] [phone] eGFR- Amer. 27 Normal [facility] Comment on above: Performed By: #### P T, CMP, CBC, PTT ####[facility] [place], [place] [phone] eGFR-All Other Races 23 . Normal [facility] Comment on above: Result Comment: eGFR (Estimated [...] By: #### P T, CMP, CBC, PTT ####[facility] [place], [place] [phone] Glucose [Mass/Vol] 80 mg/dL Normal 74-99 [facility] Comment on above: Result Comment: The [place] Diabetes Association (ADA) provides guidance for cutoff [...] Standards of Medical Care in Diabetes 2016, [place] Diabetes Association. Diabetes Care. 2016.39(Suppl 1). Performed By: #### P T, CMP, CBC, PTT ####[facility] [address] [place], [place] [phone] Potassium [Moles/Vol] 3.8 mmol/L Normal 3.7-5.1 [facility] Comment on above: Performed By: #### P T, CMP, CBC, PTT ####[facility] [place], [place] [phone] Protein [Mass/Vol] 6.3 g/dL Normal 6.3-8.0 [facility] Comment on above: Performed By: #### P T, CMP, CBC, PTT ####[facility] [place], [place] [phone] Sodium [Moles/Vol] 139 mmol/L Normal 136-144 [facility] Comment on above: Performed By: #### P T, CMP, CBC, PTT ####[facility] [place], [place] [phone] Urea nitrogen [Mass/Vol] 35 mg/dL High 7-21 [facility] Comment on above: Performed By: #### P T, CMP, CBC, PTT ####[facility] [place], [place] [phone] NURSING PROGon 09-18-2020 NURSING PROG HNO ID: [id number] Author: Christie Ham RN Service: Nursing Author Type: Registered Nurse Type: Nursing Progress Note Filed: 09/18/2020 5:02 PM Note Text: Nursing Progress Note Patient Name: Cinthya Wilson Patient Location: E020 [id number]/[id number] Report received from Amanda JOVEL. This note was completed by: Christie Ham Normal [facility] OPERATIVE NOon 09-18-2020 OPERATIVE NO HNO ID: [id number] Author: Yamileth Martin MD Service: Urology Author Type: Physician Type: Operative Report Filed: 09/24/2020 12:32 AM Note Text: The [address] [address] or (428) [facility] OPERATIVE REPORT Patient Name: Cinthya Wilson Patient Log ID: [id number] Surgery Date: 09/18/2020 Incision/Procedure Start Time: 2:16 PM Incision Close/Procedure End Time: 2:59 PM Surgeon(s) and Uptwister Tender(s): Surgeon(s) and Role: * Yamileth Martin MD [...] of anesthesia. General anesthesia was induced. The pa.tient was placed in the dorsal lithotomy position. All pressure points were padded per protocol and the operative area was prepped and draped in the standard sterile fashion. The 22 Bangladeshi rigid cystourethroscope was inserted atraumatically into the bladder. Currie cystoscopy was performed with a 30 degree lens demonstrating the aforementioned findings. A 0.038 inch hybrid guidewire was passed alongside the previously placed left ureteral stent and into the left upper tract. The previously placed left ureteral stent was then removed with a grasper. A 5 Bangladeshi open-ended ureteral catheter was advanced to the [...] Urology September 18, 2020 3:30 PM Normal [facility] Protimeon 09-18-2020 PT INR 1.0 Normal 0.9-1.3 [facility] Comment on above: Result Comment: Alana min K Antagonist (VKA) Therapeutic Range: INR 2 to 3 (Target INR of 2.5) Note: For patients treated with VKA drugs, such as warfarin, the [place] [employer] 2012 Guideline recommends [...] Chest 2012, 141:7S-47S Sorin RA, et al. [facility] 2017, 70: 252-289 Performed By: #### P T, CMP, CBC, PTT ####[facility] [place], [place] [phone] PT Sec 10.5 sec Normal 9.7-13.0 [facility] Comment on above: Performed By: #### P T, CMP, CBC, PTT ####[facility] [address] [place], [place] [phone] SURGICAL PATHOLOGYon SURGICAL PATHOLOGY Specimen originated from [facility] Specimen #: [id number] Submitting Physician: YAMILETH MARTIN M.D. (Q10) __ FINAL DIAGNOSIS Left renal pelvis, biopsy - Benign urothelial tissue with underlying vascular congestion, hemorrhage, and reactive changes. -Negative for malignancy. JDEEDEE/PTC 09/19/2020 COMMENT This case was reviewed at genitourinary pathology consensus conference and Faith Vargas, and Faith Glasgow agree with the above interpretation. Tata Vivas MD, PhD (Electronic Signature) SPECIMEN SUBMITTED A: LEFT RENAL PELVIS BIOPSY CLINICAL DATA CANCER OF LEFT RENAL PELVIS AND URETER GROSS DESCRIPTION A. Received in formalin are multiple pieces of castro, soft tissue aggregating to 0.6 x 0.2 x 0.1 cm. Totally submitted in one cassette. Gross examination performed at [address] 09/18/2020 5:55:02 PM Date of Report: 09/19/2020 Date of Procedure: 09/18/2020 Date of Receipt: 09/18/2020 Submitted by: YAMILETH MARTIN M.D. (Q10) Location: E020 Diagnostic interpretation performed at [place] [address]. CLIA Number: [id number] Normal [facility] Urine Cultureon 09-18-2020 Bacteria identified Cx Nom [...] F Levofloxacin RESISTANT >4 F Critically abnormal [facility] Comment on above: Performed By: #### U RCUL ####[facility] [address] [place], [place] [phone] HOSPon 09-08-2020 HOSP Patient:Tj Wilson MRN: Height:5' [...] NOTE This is a virtual visit using [employer] video visit. It required patient-provider interaction for the medical decision making as documented below. 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 Patient had history of hematuria which was evaluated in [facility] before. She needsd blood transfusion. She has elevated creatinine. Scr 2.02 ng/mL Her non contrast CT is suboptimal but she underwent cystoscopy, left retrograde pyelogram, left ureteroscopy. Due to bleeding his doctor wasn't able to take biopsies. Postprocedure she was transferred to F for observation. Data Reviewed: Most recent labs and imaging results. Labs Creatinine Date Value Ref Range Status 09/03/2020 2.02 (H) 0.58 - 0.96 mg/dL Final 09/02/2020 2.38 (H) 0.58 - 0.96 mg/dL Final 09/01/2020 3.07 (H) 0.58 - 0.96 mg/dL Final 03/22/2015 1.57 (H) 0.70 - 1.40 mg/dL Final Imaging Uploaded in [facility] HISTORY REVIEWED (electronic chart updated): PMH: diabetes, [...] mg t (more content not included)... Normal [facility] Basic Metabolic Panlon 09-03 Anion gap [Moles/Vol] 10 mmol/L Normal 9-18 [facility] Comment on above: Performed By: #### B MP, CBC ####[facility] [address] [place], [place] [phone] Calcium [Mass/Vol] 8.5 mg/dL Normal 8.5-10.2 [facility] Comment on above: Performed By: #### B MP, CBC ####[facility] [address] [place], [place] [phone] Chloride [Moles/Vol] 109 mmol/L High 97-105 [facility] Comment on above: Performed By: #### B MP, CBC ####[facility] [address], [place] [phone] CO2 [Moles/Vol] 21 mmol/L Low 22-30 [facility] Comment on above: Performed By: #### B MP, CBC ####[facility] [address] [place] [address], [place] [phone] Creatinine [Mass/Vol] 2.02 mg/dL High 0.58-0.96 [facility] Comment on above: Performed By: #### B MP, CBC ####[facility], [place] [phone] eGFR- Amer. 29 Normal [facility] Comment on above: Performed By: #### B MP, CBC ####[facility] [place], [place] [phone] eGFR-All Other Races 24 . [facility] Comment on above: Result Comment: eGFR [...] GFR. Performed By: #### B MP, CBC ####[facility] [address], [place] [phone] Glucose [Mass/Vol] 100 mg/dL High 74-99 [facility] Comment on above: Result Comment: The [place] Diabetes Association (ADA) provides guidance for cutoff [...] Standards of Medical Care in Diabetes 2016, [place] Diabetes Association. Diabetes Care. 2016.39(Suppl 1). Performed By: #### B MP, CBC ####[place] [address] [address], [place] [phone] Potassium [Moles/Vol] 4.8 mmol/L Normal 3.7-5.1 [facility] Comment on above: Performed By: #### B MP, CBC ####[address] [phone] Sodium [Moles/Vol] 140 mmol/L Normal 136-144 [facility] Comment on above: Performed By: #### B MP, CBC ####[address] [phone] Urea nitrogen [Mass/Vol] 44 mg/dL High 7-21 [facility] Comment on above: Performed By: #### B MP, CBC ####[address] [phone] CBCon 09-03-2020 Absolute nRBC <0.01 Normal <0.01 [facility] Comment on above: Performed By: #### B MP, CBC ####[address] [phone] Erythrocyte distribution width (RBC) [Ratio] 16.5 % High 11.5-15.0 [facility] Comment on above: Performed By: #### B MP, CBC ####[address] [phone] Hematocrit (Bld) [Volume fraction] 29.0 % Low 36.0-46.0 [facility] Comment on above: Performed By: #### B MP, CBC ####[place] [address] [address], [place] [phone] Hemoglobin (Bld) [Mass/Vol] 8.8 g/dL Low 11.5-15.5 [facility] Comment on above: Performed By: #### B MP, CBC ####[place] [address] [address], [place] [phone] MCH 27.8 pG Normal 26.0-34.0 [facility] Comment on above: Performed By: #### B MP, CBC ####[place] [address], [place] [phone] MCHC (RBC) [Mass/Vol] 30.3 g/dL Low 30.5-36.0 [facility] Comment on above: Performed By: #### B MP, CBC ####[place] [address] [address], [place] [phone] MCV (RBC) [Entitic vol] 91.8 fL Normal 80.0-100.0 [facility] Comment on above: Performed By: #### B MP, CBC ####[address], [place] [phone] Platelet mean volume (Bld) [Entitic vol] 9.7 fL Normal 9.0-12.7 [facility] Comment on above: Performed By: #### B MP, CBC ####[address], [place] [phone] Platelets (Bld) [#/Vol] 259 10*3/uL Normal 150-400 [facility] Comment on above: Performed By: #### B MP, CBC ####[place] [address], [place] [phone] RBC (Bld) [#/Vol] 3.16 10*6/uL Low 3.90-5.20 [facility] Comment on above: Performed By: #### B MP, CBC ####[facility] [place], [place] [phone] WBC (Bld) [#/Vol] 8.53 10*3/uL Normal 3.70-11.00 [facility] Comment on above: Performed By: #### B MP, CBC ####[facility] [place], [place] [phone] NURSING PROGon 09-03-2020 NURSING PROG HNO ID: [id number] Author: Allan Morrell RN Service: Nursing Author Type: Registered Nurse Type: Nursing Progress Note Filed: 09/03/2020 6:33 PM Note Text: Nursing Progress Note Patient Name: Cinthya Wilson Patient Location: 60 035/[id number] Daily Note: Patient discharged home in stable condition. DC instructions gone over with patient who verbalizes an understanding. All questions answered at time of discharge. Patient left unit via wheelchair from [facility] and driven home by son. This note was completed by: Allan Morrell Normal [facility] Basic Metabolic Panlon 09-02 Anion gap [Moles/Vol] 13 mmol/L Normal 9-18 [facility] Comment on above: Performed By: #### B SHAWN, CBC ####[facility] [place], [place] [phone] Calcium [Mass/Vol] 8.2 mg/dL Low 8.5-10.2 [facility] Comment on above: Performed By: #### B SHAWN, CBC ####[facility] [place], [place] [phone] Chloride [Moles/Vol] 108 mmol/L High 97-105 [facility] Comment on above: Performed By: #### B MP, CBC ####[facility] [address], [place] [phone] CO2 [Moles/Vol] 18 mmol/L Low 22-30 [facility] Comment on above: Performed By: #### B MP, CBC ####[facility] [address], [place] [phone] Creatinine [Mass/Vol] 2.38 mg/dL High 0.58-0.96 [facility] Comment on above: Performed By: #### B MP, CBC ####[facility], [place] [phone] eGFR- Amer. 24 Normal [facility] Comment on above: Performed By: #### B MP, CBC ####[place] [address] [place], [place] [phone] eGFR-All Other Races 20 . Normal [facility] Comment on above: Result Comment: eGFR (Estimated [...] GFR. Performed By: #### B MP, CBC ####[facility] [place], [place] [phone] Glucose [Mass/Vol] 127 mg/dL High 74-99 [facility] Comment on above: Result Comment: The [place] Diabetes Association (ADA) provides guidance for cutoff [...] Standards of Medical Care in Diabetes 2016, [place] Diabetes Association. Diabetes Care. 2016.39(Suppl 1). Performed By: #### B MP, CBC ####[place] [address] [address], [place] [phone] Potassium [Moles/Vol] 4.1 mmol/L Normal 3.7-5.1 [facility] Comment on above: Performed By: #### B MP, CBC ####[address] [phone] Sodium [Moles/Vol] 139 mmol/L Normal 136-144 [facility] Comment on above: Performed By: #### B MP, CBC ####[address] [phone] Urea nitrogen [Mass/Vol] 54 mg/dL High 7-21 [facility] Comment on above: Performed By: #### B MP, CBC ####[address] [phone] CBCon 09-02-2020 Absolute nRBC <0.01 Normal <0.01 [facility] Comment on above: Performed By: #### B MP, CBC ####[address] [phone] Erythrocyte distribution width (RBC) [Ratio] 16.8 % High 11.5-15.0 [facility] Comment on above: Performed By: #### B MP, CBC ####[address] [phone] Hematocrit (Bld) [Volume fraction] 27.8 % Low 36.0-46.0 [facility] Comment on above: Performed By: #### B MP, CBC ####[place] [address] [address], [place] [phone] Hemoglobin (Bld) [Mass/Vol] 8.5 g/dL Low 11.5-15.5 [facility] Comment on above: Performed By: #### B MP, CBC ####[place] [address] [address], [place] [phone] MCH 27.9 pG Normal 26.0-34.0 [facility] Comment on above: Performed By: #### B MP, CBC ####[place] [address] [address], [place] [phone] MCHC (RBC) [Mass/Vol] 30.6 g/dL Normal 30.5-36.0 [facility] Comment on above: Performed By: #### B MP, CBC ####[place] [address], [place] [phone] MCV (RBC) [Entitic vol] 91.1 fL Normal 80.0-100.0 [facility] Comment on above: Performed By: #### B MP, CBC ####[place] [address], [place] [phone] Platelet mean volume (Bld) [Entitic vol] 9.8 fL Normal 9.0-12.7 [facility] Comment on above: Performed By: #### B MP, CBC ####[place] [address], [place] [phone] Platelets (Bld) [#/Vol] 252 10*3/uL Normal 150-400 [facility] Comment on above: Performed By: #### B MP, CBC ####[place] [address], [place] [phone] RBC (Bld) [#/Vol] 3.05 10*6/uL Low 3.90-5.20 [facility] Comment on above: Performed By: #### B MP, CBC ####[facility] [address] [place], [place] [phone] WBC (Bld) [#/Vol] 11.29 10*3/uL High 3.70-11.00 [facility] Comment on above: Performed By: #### B MP, CBC ####[facility] [address] [place], [place] [phone] CNDSon 09-02-2020 CNDS HNO ID: [id number] Author: Fredo De Jesus MD Service: Urology Author Type: Resident Type: Discharge Summary Filed: 09/03/2020 9:47 AM Note Text: -------- Attestation signed by Teofilo Hess MD at 09/03/2020 10:14 AM Discussed with resident, agree with plan Teofilo Hess M.D. -------- The [address] [address] or (260) [facility] T [facility] A L I N F O R M A T I O N --- [facility] DOCUMENT DISCHARGE SUMMARY Patient Name: [...] and polyarticular joint pain who presented to [facility] for evaluation of hematuria, she underwent [...] Coli from the OSH, and essentially were currie sensitive to antibiotics. She was continued on [...] meals. citalopram (more content not included)... Normal [facility] NURSING PROGon 09-02-2020 NURSING PROG HNO ID: [id number] Author: Leah Macias RN Service: ? Author Type: Registered Nurse Type: Nursing Progress Note Filed: 09/02/2020 3:01 PM Note Text: Nursing Progress Note Patient Name: Cinthya Wilson Patient Location: H060 035/H060-36 Daily Note: Pt tearful and states to [...] This note was completed by: Leah Phipps [facility] APTTon 09-01-2020 aPTT Coag (Bld) [Time] 27.2 s Normal 23.0-32.4 [facility] Comment on above: Result Comment: Unfr actionated [...] laboratory APTT reagent in use throughout the [facility]. Performed By: #### P TT, PT ####[facility] [address] [place], [place] [phone] Basic Metabolic Panlon 09-01 Anion gap [Moles/Vol] 14 mmol/L Normal 9-18 [facility] Comment on above: Performed By: #### C BCDIF, BMP ####[facility] [place], [place] [phone] Calcium [Mass/Vol] 8.0 mg/dL Low 8.5-10.2 [facility] Comment on above: Performed By: #### C BCCHELSI BATES ####[place] [address] [address] [place] [phone] Chloride [Moles/Vol] 104 mmol/L Normal 97-105 [facility] Comment on above: Performed By: #### C BCBEVERLEYF, BMP ####[place] [address] [address] [place] [phone] CO2 [Moles/Vol] 18 mmol/L Low 22-30 [facility] Comment on above: Performed By: #### C YAHIR, BMP ####[place] [address] [address] [phone] Creatinine [Mass/Vol] 3.07 mg/dL High 0.58-0.96 [facility] Comment on above: Performed By: #### Tara BCBEVERLEYF, BMP ####[place] [address] [place] [phone] eGFR- Amer. 18 Normal [facility] Comment on above: Performed By: #### C BCPAULO, BMP ####[place] [address] [address] [place] [address] [place] [phone] eGFR-All Other Races 15 . Normal [facility] Comment on above: Result Comment: eGFR (Estimated [...] GFR. Performed By: #### C BCDIF, BMP ####[place] [address] [address], [place] [phone] Glucose [Mass/Vol] 192 mg/dL High 74-99 [facility] Comment on above: Result Comment: The [place] Diabetes Association (ADA) provides guidance for cutoff [...] Standards of Medical Care in Diabetes 2016, [place] [employer]. Diabetes Care. 2016.39(Suppl 1). Performed By: #### C BCDIF, BMP ####[place] [address] [place], [place] [phone] Potassium [Moles/Vol] 4.5 mmol/L Normal 3.7-5.1 [facility] Comment on above: Performed By: #### C BCDIF, BMP ####[place] [address] [place], [place] [phone] Sodium [Moles/Vol] 136 mmol/L Normal 136-144 [facility] Comment on above: Performed By: #### C BCDIF, BMP ####[facility] [place], [place] [phone] Urea nitrogen [Mass/Vol] 64 mg/dL High 7-21 [facility] Comment on above: Performed By: #### C BCDIF, BMP ####[address] [phone] CBC and Differentialon 09-01 Abs Baso <0.03 Normal <0.11 [facility] Comment on above: Performed By: #### C BCDIF, BMP ####[address] [phone] Abs Gilchrist 0.75 k/uL Normal <0.87 [facility] Comment on above: Performed By: #### C BCPAULO, BMP ####[place] [address] [address], [place] [phone] Abs Neut 11.48 k/uL High 1.45-7.50 [facility] Comment on above: Performed By: #### C BCPAULO, BMP ####[place] [address] [address] [place] [phone] Absolute nRBC <0.01 Normal <0.01 [facility] Comment on above: Performed By: #### C YAHIR, BMP ####[place] [address] [place] [phone] Basophils/100 WBC (Bld) 0.1 % Normal [facility] Comment on above: Performed By: #### C BCPAULO, BMP ####[place] [address] [address] [place] [phone] DTYPE Auto Diff Normal [facility] Comment on above: Performed By: #### C BCPAULO, BMP ####[place] [address] [place] [phone] Eosinophils (Bld) [#/Vol] 0.16 10*3/uL Normal <0.46 [facility] Comment on above: Performed By: #### C BCDIF, BMP ####[place] [address], [place] [phone] Eosinophils/100 WBC (Bld) 1.2 % Normal [facility] Comment on above: Performed By: #### C BCDIF, BMP ####[place] [address], [place] [phone] Erythrocyte distribution width (RBC) [Ratio] 17.0 % High 11.5-15.0 [facility] Comment on above: Performed By: #### C BCDIF, BMP ####[place] [address], [place] [phone] Hematocrit (Bld) [Volume fraction] 26.3 % Low 36.0-46.0 [facility] Comment on above: Performed By: #### C BCDIF, BMP ####[place] [address], [place] [phone] Hemoglobin (Bld) [Mass/Vol] 8.1 g/dL Low 11.5-15.5 [facility] Comment on above: Performed By: #### C BCDIF, BMP ####[address] [phone] Lymphocytes (Bld) [#/Vol] 0.85 10*3/uL Low 1.00-4.00 [facility] Comment on above: Performed By: #### C BCDIF, BMP ####[place] [address] [phone] Lymphocytes/100 WBC (Bld) 6.4 % Normal [facility] Comment on above: Performed By: #### C BCDIF, BMP ####[place] [address] [place] [phone] MCH 28.4 pG Normal 26.0-34.0 [facility] Comment on above: Performed By: #### C BCDIF, BMP ####[place] [address] [phone] MCHC (RBC) [Mass/Vol] 30.8 g/dL Normal 30.5-36.0 [facility] Comment on above: Performed By: #### C BCDIF, BMP ####[place] [address] [place] [phone] MCV (RBC) [Entitic vol] 92.3 fL Normal 80.0-100.0 [facility] Comment on above: Performed By: #### C BCDIF, BMP ####[facility], [place] [phone] Monocytes/100 WBC (Bld) 5.7 % Normal [facility] Comment on above: Performed By: #### C BCDIF, BMP ####[place] [address], [place] [phone] Neutrophils/100 WBC (Bld) 86.6 % Normal [facility] Comment on above: Performed By: #### C BCDIF, BMP ####[place] [address], [place] [phone] NRBCs 0.0 /100 WBC Normal 0 [facility] Comment on above: Performed By: #### C BCDIF, BMP ####[place] [address], [place] [phone] Platelet mean volume (Bld) [Entitic vol] 9.9 fL Normal 9.0-12.7 [facility] Comment on above: Performed By: #### C BCDIF, BMP ####[place] [address], [place] [phone] Platelets (Bld) [#/Vol] 205 10*3/uL Normal 150-400 [facility] Comment on above: Performed By: #### C BCDIF, BMP ####[place] [address], [place] [phone] RBC (Bld) [#/Vol] 2.85 10*6/uL Low 3.90-5.20 [facility] Comment on above: Performed By: #### C BCDIF, BMP ####[place] [address], [place] [phone] WBC (Bld) [#/Vol] 13.25 10*3/uL High 3.70-11.00 [facility] Comment on above: Performed By: #### C BCDIF, BMP ####[facility] [address] [place], [place] [phone] Confirm Blood Typeon 021 ABO/RH(D) Positive Normal [facility] Comment on above: Performed By: #### C ONABO ####[facility] [address] [place], [place] [phone] HISTORY PHYSICALon HISTORY PHYSICAL HNO ID: [id number] Author: Mick Gallardo MD Service: Urology Author Type: Resident Type: HANDP Filed: 09/01/2020 7:18 AM Note Text: -------- Attestation signed by Teofilo Hess MD at 09/03/2020 10:16 AM Discussed with resident, agree with plan Teofilo Hess M.D. -------- [facility] UROLOGY HANDP Service Date: 09/01/2020 Service Time: 6:48 AM ASSESSMENT AND PLAN: 75 year old female with history of HTN, DM2, stage III CKD, CAD s/p 1 stent in 2010, and polyarticular joint pain who presented to [facility] with left-sided abdominal pain and was transferred to [facility] for definitive management of a [...] Mick Gallardo MD Urology Resident PGY-2 Pager: [phone] For weekend or after hours issues [place] [phone] HPI: 75 year old female with history of HTN, DM2, stage III CKD, CAD s/p 1 stent in 2010, and polyarticular joint pain who presented to [facility] with left-sided abdominal pain and was transferred to [facility] for definitive management of a left intrarenal mass c/f urothelial carcinoma. Had acute onset left lower quadrant abdominal pain for which she presented to [facility] 08/29. Associated with nausea. Originally thought [...] as need (more content not included)... Normal [facility] Intermed Rapid COVIDon 09-01 SARS-CoV-2 (COVID-19) RNA MADISON+probe Ql (Unsp spec) UPPER RESPIRATORY TRACT SWAB Normal [facility] Comment on above: Performed By: #### I TCOVD ####[facility] [place], [place] [phone] SARS-CoV-2 (COVID-19) RNA MADISON+probe Ql (Unsp spec) Negative for COVID19 (SARS CoV2) by RT-PCR or equivalent method. Normal Negative for COVID19 (SARS CoV2) by RT-PCR or equivalent method. [facility] Comment on above: Result Comment: This test was developed and its performance characteristics determined by [facility]'s [facility] [place]. This test has been authorized by FDA under an Emergency Use Authorization (EUA). This test has been validated in accordance with the FDA's Guidance Document Policy for Diagnostics Testing in Laboratories Certified to Perform High Complexity Testing under CLIA prior to Emergency use Authorization for Coronavirus Disease 2019 during the Public Health Emergency issued on April 10, 2019. Test performed by [facility], [facility] [place], [address] [place], [place] [address]. Performed By: #### I TCOVD ####[place] [address] [place], [place] [phone] Protimeon 09-01-2020 PT INR 1.0 Normal 0.9-1.3 [facility] Comment on above: Result Comment: Alana min K Antagonist (VKA) Therapeutic Range: INR 2 to 3 (Target INR of 2.5) Note: For patients treated with VKA drugs, such as warfarin, the [employer] 2012 Guideline recommends [...] to 3.5 (target INR of 3). Onelia GH, et al. Chest 2012, 141:7S-47S Sorin LOPEZ et al. JACC 2017, 70: 252-289 Performed By: #### P TT, PT ####[facility] [address] [place], [place] [phone] PT Sec 10.4 sec Normal 9.7-13.0 [facility] Comment on above: Performed By: #### P TT, PT ####[facility], [place] [phone] Type and Screenon 09-01-2020 ABO/RH(D) Positive Normal [facility] Comment on above: Performed By: #### T SCR ####[facility] [place], [place] [phone] Urine Cultureon 09-01-2020 Bacteria identified Cx Nom (U) Sp. Request/Comment: - Specimen received in preservative Culture Result - No growth (<1,000 CFU/ml) Normal [facility] Comment on above: Performed By: #### U RCUL ####[facility], [place] [phone] XR ABDOMEN 1V SUPINEon 09-01 XR ABDOMEN [...] dilated bowel. Degenerative changes of the spine. National Coverage Specialist: PATY Transcribe Date/Time: Sep 01 2020 10:33A Dictated by : VINEET HANLEY This examination was interpreted and the report reviewed and electronically signed by: SAURABH MAJANO MD on Sep 01 2020 10:45AM EST [id number] Normal [facility] OT-XR CHEST 2 V IMPORTon OT-XR CHEST 2 V IMPORT Images were obtai dmitriy outside of [facility] [id number] Normal [facility] OT-XR RETROGRADE PYELOGRAM I MPORTon 08-30-2020 OT-XR RETROGRADE PYELOGRAM IMPORT Images were obtained outside of [facility] [id number] Normal [facility] OT-CT ABD/PELVIS WO CON IMPO RTon 08-29-2020 OT-CT ABD/PELVIS WO CON IMPORT Images were obtained outside of [facility] [id number] Normal [facility] Automated basophil %on 05-16 Basophils/100 WBC (Bld) 0.3 % F [facility] Automated basophil counton 0 05-16-2020 Basophils (Bld) [#/Vol] 0.0 10*3/uL 0.0-0.2 [facility] Automated blood lymphocyte c ount (number/volume)on 05-16-2020 Lymphocytes (Bld) [#/Vol] 0.8 10*3/uL 1.00-4.8 [facility] Automated blood lymphocyte c ount as percentage of total leukocyteson 05-16-2020 Lymphocytes/100 WBC (Bld) 10.5 % [facility] Automated blood monocyte cou nton 05-16-2020 Monocytes (Bld) [#/Vol] 0.9 10*3/uL 0.0-0.8 [facility] Automated blood platelet cou nt (count/volume)on 05-16-2020 Platelets (Bld) [#/Vol] 364 10*3/uL 150-450 [facility] Automated blood platelet marciano n volume measurementon 05-16-2020 Platelet mean volume (Bld) [Entitic vol] 7.5 fL 6.3-10.7 [facility] Automated eosinophil %on Eosinophils/100 WBC (Bld) 2.0 % [facility] Automated eosinophil counton 05-16-2020 Eosinophils (Bld) [#/Vol] 0.2 10*3/uL 0.0-0.45 [facility] Automated erythrocyte distri bution width ratioon 05-16-2020 Erythrocyte distribution width (RBC) [Ratio] 20.9 % 11.9-15.3 [facility] Automated erythrocyte mean c orpuscular hemoglobin (mass per erythrocyte)on 05-16-2020 MCH (RBC) [Entitic mass] 28.3 pg 24.7-34.3 [facility] Automated erythrocyte mean c orpuscular hemoglobin concentration measurement (mass/volon 05-16-2020 MCHC (RBC) [Mass/Vol] 33.0 g/dL 32.0-35.0 [facility] Automated erythrocyte mean c orpuscular volumeon 05-16-2020 MCV (RBC) [Entitic vol] 85.9 fL 80-100 F [facility] Automated monocyte %on 05-16 Monocytes/100 WBC (Bld) 11.6 % F [facility] Automated neutrophil %on Neutrophils/100 WBC (Bld) 75.6 % [facility] Blood erythrocytes automated count (number/volume)on 05-16-2020 RBC (Bld) [#/Vol] 3.44 10*6/uL 3.60-5.00 [facility] Blood hemoglobin measurement (mass/volume)on 05-16-2020 Hemoglobin (Bld) [Mass/Vol] 9.8 g/dL 11.8-15.4 [facility] Blood leukocytes automated c ount (number/volume)on 05-16-2020 WBC (Bld) [#/Vol] 7.9 10*3/uL 4.5-11.0 [facility] Blood neutrophil count by au tomated method (number/volume)on 05-16-2020 Neutrophils (Bld) [#/Vol] 5.9 10*3/uL 1.8-7.7 [facility] COVID-19 Positive/Negativeon 05-16-2020 COVID-19 Positive/Negative Negative Negative [facility] Comment on above: Reference: NegativeT esting for SARS-CoV-2 by RT-PCRThis test was developed and its performance characteristics determined by [employer] and validated at the [facility]. This test has not been FDA cleared [...] non-blacks MDRD (S/P/Bld) [Vol rate/Area] 23 mL/Min [facility] Hematocrit [Volume Fraction] of Blood by Automated counton 05-16-2020 Hematocrit (Bld) [Volume fraction] 29.6 % 34.0-46.4 [facility] Otheron 05-16-2020 Coronavirus 2019 PCR Interp N/A [facility] GFR/1.73 sq M.predicted MDRD (S/P/Bld) [Vol rate/Area] 28 mL/Min [facility] Comment on above: GFR estimated refere nce range: According to KDOQI guidelines, <60 ml/min/1.73m2 is sufficient to diagnose a patient with chronic kidney disease. Nucleated RBC/100 WBC (Bld) [Ratio] 0.1 % 0-0.5 [facility] Creatinine Clearance (Chem N/A [facility] Serum or plasma calcium eugenie urement (mass/volume)on 05-16-2020 Calcium [Mass/Vol] 9.3 mg/dL 8.2-10.2 [facility] Serum or plasma chloride marciano surement (moles/volume)on 05-16-2020 Chloride [Moles/Vol] 97 mmol/L 95-114 [facility] Serum or plasma creatinine m easurement with calculation of estimated glomerular filtron 05-16-2020 Creatinine [Mass/Vol] 2.12 mg/dL 0.44-1.03 [facility] Serum or plasma glucose eugenie urement (mass/volume)on 05-16-2020 Glucose [Mass/Vol] 169 mg/dL 70-100 [facility] Comment on above: ADA recommended refe rence rangeRandom Glucose Reference Range is dependent on time and content of last meal. Glucose of more than 200 mg/dL in a nonstressed, ambulatory subject supports the diagnosis of Diabetes Mellitus. Serum or plasma potassium me asurement (moles/volume)on 05-16-2020 Potassium [Moles/Vol] 4.6 mmol/L 3.5-5.1 [facility] Serum or plasma sodium measu rement (moles/volume)on 05-16-2020 Sodium [Moles/Vol] 133 mmol/L 136-146 [facility] Serum or plasma total carbon dioxide measurement (moles/volume)on 05-16-2020 CO2 [Moles/Vol] 26.1 mmol/L 22.0-30.0 [facility] Serum or plasma urea nitroge n measurement (mass/volume)on 05-16-2020 Urea nitrogen [Mass/Vol] 39 mg/dL 9-23 [facility] Body fluid differential cell counton 03-27-2020 Differential panel - Body fluid 12 % [facility] Comment on above: The reference interv al and other method performance specifications have not been established for this body fluid. The test result must be integrated into the clinical context for interpretation. Color of Spun Body fluidon 0 03-27-2020 Color (Spun body fld) colorless [facility] Comment on above: The reference interv al and other method performance specifications have not been established for this body fluid. The test result must be integrated into the clinical context for interpretation. Determination of appearance of body fluidon 03-27-2020 Appearance (Body fld) clear [facility] Comment on above: The reference interv al and other method performance specifications have not been established for this body fluid. The test result must be integrated into the clinical context for interpretation. Evaluation of color of body fluidon 03-27-2020 Color (Body fld) colorless [facility] Comment on above: The reference interv al and other method performance specifications have not been established for this body fluid. The test result must be integrated into the clinical context for interpretation. Manual body fluid eosinophil s/100 leukocyteson 03-27-2020 Eosinophils/100 WBC Manual cnt (Body fld) 0 /100{WBC} 0-3 [facility] Manual body fluid erythrocyt es count (number/volume)on 03-27-2020 RBC Manual cnt (Body fld) [#/Vol] 18 /uL [facility] Comment on above: The reference interv al and other method performance specifications have not been established for this body fluid. The test result must be integrated into the clinical context for interpretation. Manual body fluid leukocytes count (number/volume)on 03-27-2020 WBC Manual cnt (Body fld) [#/Vol] 49 /uL [facility] Comment on above: The reference interv al and other method performance specifications have not been established for this body fluid. The test result must be integrated into the clinical context for interpretation. Manual body fluid lymphocyte s/100 leukocyteson 03-27-2020 Lymphocytes/100 WBC Manual cnt (Body fld) 2 % [facility] Comment on above: The reference interv al and other method performance specifications have not been established for this body fluid. The test result must be integrated into the clinical context for interpretation. Manual body fluid neutrophil s/100 leukocyteson 03-27-2020 Neutrophils/100 WBC (Body fld) 86 % [facility] Comment on above: The reference interv al and other method performance specifications have not been established for this body fluid. The test result must be integrated into the clinical context for interpretation. Transfusion reaction panel ( ABO, Rh)on 03-27-2020 Microscopic observation Gram stain Nom (Unsp spec) [facility] BASIC METABOLIC PANELon 09 Calcium [Mass/Vol] 9.2 mg/dL Normal 8.6-10.3 [facility] Comment on above: Order Comment: The A ptima SARS-CoV-2 assay is a nucleic acid amplification test intended for the qualitative detection of RNA from SARS-CoV-2 isolated and purified from nasopharyngeal (A R COLLECTIONS REP),oropharyngeal (OP), nasal swab, sputum, and bronchoalveolar lavage (BAL) specimens from patients with signs and symptoms of infection who are suspected of COVID-19. Results are for the identification of SARS-CoV-2 RNA. The SARS-CoV-2 RNA is generally detectable during the acute phase of infection. The Aptima SARS-CoV-2 Assay on the [employer] system is intended for use by laboratory personnel specifically instructed and trained in the operation of the [employer] Fusion system. The Aptima SARS-CoV-2 assay is [...] information. Performed By: #### 3 1792 #### [address] Chloride [Moles/Vol] 94 mmol/L Low 98-107 [facility] Comment on above: Order Comment: The A ptima SARS-CoV-2 assay is a nucleic acid amplification test intended for the qualitative detection of RNA from SARS-CoV-2 isolated and purified from nasopharyngeal (A R COLLECTIONS REP),oropharyngeal (OP), nasal swab, sputum, and bronchoalveolar lavage (BAL) specimens from patients with signs and symptoms of infection who are suspected of COVID-19. Results are for the identification of SARS-CoV-2 RNA. The SARS-CoV-2 RNA is generally detectable during the acute phase of infection. The Aptima SARS-CoV-2 Assay on the [employer] Fusion system is intended for use by laboratory personnel specifically instructed and trained in the operation of the [employer] Fusion system. The Aptima SARS-CoV-2 assay is [...] information. Performed By: #### 3 1792 #### [facility] [address] CO2 [Moles/Vol] 26 mmol/L Normal 21-31 [facility] Comment on above: Order Comment: The A ptima SARS-CoV-2 assay is a nucleic acid amplification test intended for the qualitative detection of RNA from SARS-CoV-2 isolated and purified from nasopharyngeal (A R COLLECTIONS REP),oropharyngeal (OP), nasal swab, sputum, and bronchoalveolar lavage (BAL) specimens from patients with signs and symptoms of infection who are suspected of COVID-19. Results are for the identification of SARS-CoV-2 RNA. The SARS-CoV-2 RNA is generally detectable during the acute phase of infection. The Aptima SARS-CoV-2 Assay on the [employer] Fusion system is intended for use by laboratory personnel specifically instructed and trained in the operation of the [employer] Fusion system. The Aptima SARS-CoV-2 assay is [...] information. Performed By: #### 3 1792 #### [facility] [address] Creatinine [Mass/Vol] 3.86 mg/dL High 0.60-1.20 [facility] Comment on above: Order Comment: The A ptima SARS-CoV-2 assay is a nucleic acid amplification test intended for the qualitative detection of RNA from SARS-CoV-2 isolated and purified from nasopharyngeal (A R COLLECTIONS REP),oropharyngeal (OP), nasal swab, sputum, and bronchoalveolar lavage (BAL) specimens from patients with signs and symptoms of infection who are suspected of COVID-19. Results are for the identification of SARS-CoV-2 RNA. The SARS-CoV-2 RNA is generally detectable during the acute phase of infection. The Aptima SARS-CoV-2 Assay on the [employer] Fusion system is intended for use by laboratory personnel specifically instructed and trained in the operation of the [employer] Fusion system. The Aptima SARS-CoV-2 assay is [...] information. Performed By: #### 3 1792 #### [facility] [address] [address], [facility] GFR/1.73 sq M predicted among blacks MDRD (S/P/Bld) [Vol rate/Area] 14 ml/min/1.73sq m Abnormal >60 [facility] Comment on above: Order Comment: The A ptima SARS-CoV-2 assay is a nucleic acid amplification test intended for the qualitative detection of RNA from SARS-CoV-2 isolated and purified from nasopharyngeal (A R COLLECTIONS REP),oropharyngeal (OP), nasal swab, sputum, and bronchoalveolar lavage (BAL) specimens from patients with signs and symptoms of infection who are suspected of COVID-19. Results are for the identification of SARS-CoV-2 RNA. The SARS-CoV-2 RNA is generally detectable during the acute phase of infection. The Aptima SARS-CoV-2 Assay on the [employer] system is intended for use by laboratory personnel specifically instructed and trained in the operation of the [employer] system. The Aptima SARS-CoV-2 assay is [...] years Performed By: #### 3 1792 #### [facility] [address] [place] [address], [facility] GFR/1.73 sq M predicted among non-blacks MDRD (S/P/Bld) [Vol rate/Area] 11 ml/min/1.73sq m Abnormal >60 [facility] Comment on above: Order Comment: The A ptima SARS-CoV-2 assay is a nucleic acid amplification test intended for the qualitative detection of RNA from SARS-CoV-2 isolated and purified from nasopharyngeal (A R COLLECTIONS REP),oropharyngeal (OP), nasal swab, sputum, and bronchoalveolar lavage (BAL) specimens from patients with signs and symptoms of infection who are suspected of COVID-19. Results are for the identification of SARS-CoV-2 RNA. The SARS-CoV-2 RNA is generally detectable during the acute phase of infection. The Aptima SARS-CoV-2 Assay on the [employer] and [employer] Fusion system is intended for use by laboratory personnel specifically instructed and trained in the operation of the [employer] Fusion system. The Aptima SARS-CoV-2 assay is [...] years Performed By: #### 3 1792 #### [facility] [address] [facility] [place] [address], [facility] Glucose [Mass/Vol] 160 mg/dL High 70-100 [facility] Comment on above: Order Comment: The A ptima SARS-CoV-2 assay is a nucleic acid amplification test intended for the qualitative detection of RNA from SARS-CoV-2 isolated and purified from nasopharyngeal (A R COLLECTIONS REP),oropharyngeal (OP), nasal swab, sputum, and bronchoalveolar lavage (BAL) specimens from patients with signs and symptoms of infection who are suspected of COVID-19. Results are for the identification of SARS-CoV-2 RNA. The SARS-CoV-2 RNA is generally detectable during the acute phase of infection. The Aptima SARS-CoV-2 Assay on the [employer] system is intended for use by laboratory personnel specifically instructed and trained in the operation of the [employer] system. The Aptima SARS-CoV-2 assay is [...] information. Performed By: #### 3 1792 #### [address] Potassium [Moles/Vol] 3.4 mmol/L Low 3.5-5.1 [facility] Comment on above: Order Comment: The A ptima SARS-CoV-2 assay is a nucleic acid amplification test intended for the qualitative detection of RNA from SARS-CoV-2 isolated and purified from nasopharyngeal (A R COLLECTIONS REP),oropharyngeal (OP), nasal swab, sputum, and bronchoalveolar lavage (BAL) specimens from patients with signs and symptoms of infection who are suspected of COVID-19. Results are for the identification of SARS-CoV-2 RNA. The SARS-CoV-2 RNA is generally detectable during the acute phase of infection. The Aptima SARS-CoV-2 Assay on the [employer] Fusion system is intended for use by laboratory personnel specifically instructed and trained in the operation of the [employer] Fusion system. The Aptima SARS-CoV-2 assay is [...] information. Performed By: #### 3 1792 #### [facility] [address] [facility]. [address] Sodium [Moles/Vol] 133 mmol/L Low 136-145 [facility] Comment on above: Order Comment: The A ptima SARS-CoV-2 assay is a nucleic acid amplification test intended for the qualitative detection of RNA from SARS-CoV-2 isolated and purified from nasopharyngeal (A R COLLECTIONS REP),oropharyngeal (OP), nasal swab, sputum, and bronchoalveolar lavage (BAL) specimens from patients with signs and symptoms of infection who are suspected of COVID-19. Results are for the identification of SARS-CoV-2 RNA. The SARS-CoV-2 RNA is generally detectable during the acute phase of infection. The Aptima SARS-CoV-2 Assay on the [employer] Fusion system is intended for use by laboratory personnel specifically instructed and trained in the operation of the Rankin and [employer] Fusion system. The Aptima SARS-CoV-2 assay is [...] information. Performed By: #### 3 1792 #### [facility] [address] Urea nitrogen [Mass/Vol] 109 mg/dL High 7-25 [facility] Comment on above: Order Comment: The A ptima SARS-CoV-2 assay is a nucleic acid amplification test intended for the qualitative detection of RNA from SARS-CoV-2 isolated and purified from nasopharyngeal (A R COLLECTIONS REP),oropharyngeal (OP), nasal swab, sputum, and bronchoalveolar lavage (BAL) specimens from patients with signs and symptoms of infection who are suspected of COVID-19. Results are for the identification of SARS-CoV-2 RNA. The SARS-CoV-2 RNA is generally detectable during the acute phase of infection. The Aptima SARS-CoV-2 Assay on the [employer] Rank[employer] Fusion system is intended for use by laboratory personnel specifically instructed and trained in the operation of the Rankin [employer] Fusion system. The Aptima SARS-CoV-2 assay is [...] information. Performed By: #### 3 1792 #### [facility] [address] [place] [address], [facility] LIVER BATTERYon 10-14-2019 Albumin [Mass/Vol] 4.0 g/dL Normal 3.5-5.7 [facility] Comment on above: Performed By: #### 3 1792 #### [facility] [address] [address], [facility] ALKALINE PHOSPH 69 IU/L Normal 34-104 [facility] Comment on above: Performed By: #### 3 1792 #### [facility] [address] [address], [facility] ALT [Catalytic activity/Vol] 26 U/L Normal 7-52 [facility] Comment on above: Performed By: #### 3 1792 #### [facility] [address] [address], [place] AST [Catalytic activity/Vol] 21 U/L Normal 13-39 [facility] Comment on above: Performed By: #### 3 1792 #### [facility] [address] [address], [facility] Bilirubin [Mass/Vol] 0.4 mg/dL Normal 0.3-1.0 [facility] Comment on above: Performed By: #### 3 1791 #### [facility] [address] [address], [facility] Bilirubin.direct [Mass/Vol] 0.0 mg/dL Normal 0.0-0.2 [facility] Comment on above: Performed By: #### 3 1791 #### [facility] [address] [address], [facility] Protein [Mass/Vol] 6.6 g/dL Normal 6.0-8.3 [facility] Comment on above: Performed By: #### 3 1791 #### [facility] [address] [address], [facility] POC GLUCOSE LABon 10-14-2019 Glucose [Mass/Vol] 179 mg/dL High 70-100 [facility] Comment on above: Performed By: #### 3 1791 #### [facility] [address] [address], [facility] Glucose [Mass/Vol] 263 mg/dL High 70-100 [facility] Comment on above: Performed By: #### 3 1791 #### [facility] [address] [address], [place] Glucose [Mass/Vol] 301 mg/dL High 70-100 [facility] Comment on above: Performed By: #### 3 1791 #### [facility] [address] [address], [facility] Glucose [Mass/Vol] 163 mg/dL High 70-100 [facility] Comment on above: Performed By: #### 3 1791 #### [facility] [address] [address], [facility] BASIC METABOLIC PANELon Calcium [Mass/Vol] 9.4 mg/dL Normal 8.6-10.3 [facility] Comment on above: Order Comment: Cameron nephrosis Performed By: #### 0 0071, 63428 ####[id number] [address], [place] Chloride [Moles/Vol] 91 mmol/L Low 98-107 [facility] Comment on above: Order Comment: Cameron nephrosis Performed By: #### 0 0071, 44803 ####[facility] [address], [place] CO2 [Moles/Vol] 25 mmol/L Normal 21-31 [facility] Comment on above: Order Comment: Cameron nephrosis Performed By: #### 0 0071, 49051 ####[facility] [address], [facility] Creatinine [Mass/Vol] 3.90 mg/dL High 0.60-1.20 [facility] Comment on above: Order Comment: Cameron nephrosis Performed By: #### 0 0071, 84784 ####[facility] [address], [place] GFR/1.73 sq M predicted among blacks MDRD (S/P/Bld) [Vol rate/Area] 13 ml/min/1.73sq m Abnormal >60 [facility] Comment on above: Order Comment: Cameron nephrosis Result Comment: Calc ulation may not be valid for patients over 70 years Performed By: #### 0 0071, 78309 ####[facility] [address], [place] GFR/1.73 sq M predicted among non-blacks MDRD (S/P/Bld) [Vol rate/Area] 11 ml/min/1.73sq m Abnormal >60 [facility] Comment on above: Order Comment: Cameron nephrosis Result Comment: Calc ulation may not be valid for patients over 70 years Performed By: #### 0 0071, 26718 ####[facility] [address], [place] Glucose [Mass/Vol] 204 mg/dL High 70-100 [facility] Comment on above: Order Comment: Cameron nephrosis Performed By: #### 0 0071, 30558 ####[facility] [address], [facility] Potassium [Moles/Vol] 3.4 mmol/L Low 3.5-5.1 [facility] Comment on above: Order Comment: Cameron nephrosis Performed By: #### 0 0071, 31265 ####[facility] Sodium [Moles/Vol] 132 mmol/L Low 136-145 [facility] Comment on above: Order Comment: Cameron nephrosis Performed By: #### 0 0071, 69469 ####[facility] Urea nitrogen [Mass/Vol] 101 mg/dL High 7-25 [facility] Comment on above: Order Comment: Cameron nephrosis Performed By: #### 0 0071, 29511 ####[facility] CBC COMPLETE BLOOD COUNTon 10-13-2019 Erythrocyte distribution width (RBC) [Ratio] 14.5 % Normal 11.5-15.0 [facility] Comment on above: Order Comment: Cameron nephrosis Performed By: #### 5 0608 ####[facility] Hematocrit (Bld) [Volume fraction] 33.2 % Low 36.0-45.0 [facility] Comment on above: Order Comment: Cameron nephrosis Performed By: #### 5 0608 ####[facility] Hemoglobin (Bld) [Mass/Vol] 10.8 g/dL Low 12.0-15.0 [facility] Comment on above: Order Comment: Cameron nephrosis Performed By: #### 5 0608 ####[facility] [facility] [place] [address], [facility] MCH (RBC) [Entitic mass] 29.6 pg Normal 27.0-33.0 [facility] Comment on above: Order Comment: Cameron nephrosis Performed By: #### 5 0608 ####[facility] [facility] [place] [address], [facility] MCHC (RBC) [Mass/Vol] 32.5 g/dL Normal 32.0-35.0 [facility] Comment on above: Order Comment: Cameron nephrosis Performed By: #### 5 0608 ####[facility] [facility] [place] [address], [facility] MCV (RBC) [Entitic vol] 91.0 fL Normal 82.0-98.0 [facility] Comment on above: Order Comment: Cameron nephrosis Performed By: #### 5 0608 ####[facility] [facility] [place] [address], [facility] Nucleated RBC/100 WBC (Bld) [Ratio] 0 % Normal 0-0 [facility] Comment on above: Order Comment: Cameron nephrosis Performed By: #### 5 0608 ####[facility] [facility] [place] [address], [facility] PLAT CNT 199 10*3/uL Normal 150-400 [facility] Comment on above: Order Comment: Cameron nephrosis Performed By: #### 5 0608 ####[facility] [facility] [place] [address], [facility] RBC (Bld) [#/Vol] 3.65 10*6/uL Low 3.80-5.00 [facility] Comment on above: Order Comment: Cameron nephrosis Performed By: #### 5 0608 ####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 [address], [facility] Cardiovascular Lab Reporton 10-13-2019 Cardiovascular Lab Report [facility] Patient Name: Cinthya Wilson [facility] MR #: [id number] Department of Physician: Rand Tellez M.D. Division of Service Date: 10/13/2019 Cardiology Birthdate: 1945 Adult Cardiovascular Room #: 3AB [id number] [facility] [address] [facility] [address] Cardiovascular Laboratory Report FINAL IMPRESSIONS: 1. Low [...] right internal jugular vein was obtained. A 6-Bangladeshi 11 cm sheath was inserted without difficulty. [...] P/Cheli Lutz M.D. Date Trans: 10/13/2019 03:08 P/mmo [id number] cc: Lily Aldrich M.D. 3 [facility] [address] Marcus Belcher M.D. [facility] Emergency Room [address] [place] [address] Normal [facility] MAGNESIUM BLOODon 10-13-2019 Magnesium [Mass/Vol] 2.2 mg/dL Normal 1.9-2.7 [facility] Comment on above: Order Comment: Cameron nephrosis Performed By: #### 0 0071, 42933 ####[facility] [address], [place] POC GLUCOSE LABon 10-13-2019 Glucose [Mass/Vol] 230 mg/dL High 70-100 [facility] Comment on above: Performed By: #### 8 5499 ####[facility] [place] [address], [place] Glucose [Mass/Vol] 192 mg/dL High 70-100 [facility] Comment on above: Performed By: #### 8 5499 ####[facility] [place] [address], [place] Glucose [Mass/Vol] 203 mg/dL High 70-100 [facility] Comment on above: Performed By: #### 8 5499 ####[facility] [place] [address], [place] Glucose [Mass/Vol] 218 mg/dL High 70-100 [facility] Comment on above: Performed By: #### 8 5499 ####[facility] [address], [facility] BASIC METABOLIC PANELon 09-0 Calcium [Mass/Vol] 9.6 mg/dL Normal 8.6-10.3 [facility] Comment on above: Order Comment: No: D o not add to previous draw Performed By: #### 0 0071, 86020, 43161 #### [facility] [address] [address], [facility] Chloride [Moles/Vol] 94 mmol/L Low 98-107 [facility] Comment on above: Order Comment: No: D o not add to previous draw Performed By: #### 0 0071, 02289, 19258 #### [facility] [address] [address], [place] CO2 [Moles/Vol] 27 mmol/L Normal 21-31 [facility] Comment on above: Order Comment: No: D o not add to previous draw Performed By: #### 0 0071, 73082, 90919 #### [facility] [address] [address], [place] Creatinine [Mass/Vol] 3.32 mg/dL High 0.60-1.20 [facility] Comment on above: Order Comment: No: D o not add to previous draw Performed By: #### 0 0071, 29990, 45440 #### [facility] [address] [address], [place] GFR/1.73 sq M predicted among blacks MDRD (S/P/Bld) [Vol rate/Area] 16 ml/min/1.73sq m Abnormal >60 [facility] Comment on above: Order Comment: No: D o not add to previous draw Result Comment: Calc ulation may not be valid for patients over 70 years Performed By: #### 0 0071, 81211, 13625 #### [facility] [address] [address], [facility] GFR/1.73 sq M predicted among non-blacks MDRD (S/P/Bld) [Vol rate/Area] 13 ml/min/1.73sq m Abnormal >60 [facility] Comment on above: Order Comment: No: D o not add to previous draw Result Comment: Calc ulation may not be valid for patients over 70 years Performed By: #### 0 0071, 72517, 26930 #### [facility] [address] [address], [place] Glucose [Mass/Vol] 141 mg/dL High 70-100 [facility] Comment on above: Order Comment: No: D o not add to previous draw Performed By: #### 0 0071, 84938, 50612 #### [facility] [address] [address], [facility] Potassium [Moles/Vol] 3.7 mmol/L Normal 3.5-5.1 [facility] Comment on above: Order Comment: No: D o not add to previous draw Performed By: #### 0 0071, 57802, 09742 #### [facility] [address] [address], [facility] Sodium [Moles/Vol] 133 mmol/L Low 136-145 [facility] Comment on above: Order Comment: No: D o not add to previous draw Performed By: #### 0 0071, 97984, 41378 #### [facility] [address] [place] [address], [place] Urea nitrogen [Mass/Vol] 85 mg/dL High 7-25 [facility] Comment on above: Order Comment: No: D o not add to previous draw Performed By: #### 0 0071, 96616, 73660 #### [facility] [address] [address], [place] BNP (B-TYPE NATRIURETIC PEPT CAILIN)on 10-12-2019 Natriuretic peptide B (Bld) [Mass/Vol] 41 pg/mL Normal 0-100 [facility] Comment on above: Order Comment: Cameron nephrosis Result Comment: Give n the appropriate clinical setting a BNP result of >100 pg/mL indicates congestive heart failure. Performed By: #### 8 5123 ####[facility] CBC COMPLETE BLOOD COUNTon - Erythrocyte distribution width (RBC) [Ratio] 14.6 % Normal 11.5-15.0 [facility] Comment on above: Order Comment: No: D o not add to previous draw Performed By: #### 0 0071, 72906, 04901 #### [facility] [address] Hematocrit (Bld) [Volume fraction] 32.5 % Low 36.0-45.0 [facility] Comment on above: Order Comment: No: D o not add to previous draw Performed By: #### 0 0071, 17571, 89230 #### [facility] [address] [facility] Hemoglobin (Bld) [Mass/Vol] 10.7 g/dL Low 12.0-15.0 [facility] Comment on above: Order Comment: No: D o not add to previous draw Performed By: #### 0 0071, 06587, 75774 #### [facility] [address] [facility] [place] [address], [facility] MCH (RBC) [Entitic mass] 29.7 pg Normal 27.0-33.0 [facility] Comment on above: Order Comment: No: D o not add to previous draw Performed By: #### 0 0071, 59600, 25161 #### [facility] [address] [address], [facility] MCHC (RBC) [Mass/Vol] 32.9 g/dL Normal 32.0-35.0 [facility] Comment on above: Order Comment: No: D o not add to previous draw Performed By: #### 0 0071, 19990, 32500 #### [facility] [address] [facility] [place] [place] [address], [facility] MCV (RBC) [Entitic vol] 90.3 fL Normal 82.0-98.0 [facility] Comment on above: Order Comment: No: D o not add to previous draw Performed By: #### 0 0071, 16123, 48266 #### [facility] [address] [facility] [place] [address], [facility] Nucleated RBC/100 WBC (Bld) [Ratio] 0 % Normal 0-0 [facility] Comment on above: Order Comment: No: D o not add to previous draw Performed By: #### 0 0071, 51060, 58676 #### [facility] [address] [facility] [place] [address], [facility] PLAT CNT 202 10*3/uL Normal 150-400 [facility] Comment on above: Order Comment: No: D o not add to previous draw Performed By: #### 0 0071, 96258, 59824 #### [facility] [address] [facility] [place] [address], [facility] RBC (Bld) [#/Vol] 3.60 10*6/uL Low 3.80-5.00 [facility] Comment on above: Order Comment: No: D o not add to previous draw Performed By: #### 0 0071, 08136, 33854 #### [facility] [address] [facility] [place] [address], [facility] WBC (Bld) [#/Vol] 8.02 10*3/uL Normal 4.00-10.60 [facility] Comment on above: Order Comment: No: D o not add to previous draw Performed By: #### 0 0071, 36583, 08250 #### [facility] [address] [place] [address], [facility] D DIMER TESTon 10-12-2019 D-DIMER TEST 0.27 mcg/mL FEU Normal 0.01-0.49 [facility] Comment on above: Order Comment: No: D o not add to previous draw Result Comment: D-Di kia values of less than 0.50 ug/ml (FEU) are considered to be a negative predictor of thrombosis. However, the D-Dimer result should be used in conjunction with pretest probability and should not be used alone to diagnose a thrombotic event. Performed By: #### 0 0071, 24840, 03684 #### [facility] [address] [address], [facility] MAGNESIUM BLOODon 10-12-2019 Magnesium [Mass/Vol] 2.1 mg/dL Normal 1.9-2.7 [facility] Comment on above: Order Comment: No: D o not add to previous draw Performed By: #### 0 0071, 05409, 64994 #### [facility] [address] [address], [facility] POC GLUCOSE LABon 10-12-2019 Glucose [Mass/Vol] 268 mg/dL High 70-100 [facility] Comment on above: Performed By: #### 8 5499 ####[facility] [facility] [place] [address], [facility] Glucose [Mass/Vol] 109 mg/dL High 70-100 [facility] Comment on above: Performed By: #### 8 5499 ####[facility] [facility] [place] [address], [facility] Glucose [Mass/Vol] 210 mg/dL High 70-100 [facility] Comment on above: Performed By: #### 0 0071, 69475, 92686 #### [facility] [address] [address], [place] Glucose [Mass/Vol] 174 mg/dL High 70-100 [facility] Comment on above: Performed By: #### 0 0071, 36956, 13398 #### [facility] [address] [address], [place] BASIC METABOLIC PANELon 08-3 Calcium [Mass/Vol] 9.6 mg/dL Normal 8.6-10.3 [facility] Comment on above: Order Comment: No: D o not add to previous draw Performed By: #### 0 0071, 69444, 82389 #### [facility] [address] [address], [place] Chloride [Moles/Vol] 98 mmol/L Normal 98-107 [facility] Comment on above: Order Comment: No: D o not add to previous draw Performed By: #### 0 0071, 61792, 89230 #### [facility] [address] [address], [place] CO2 [Moles/Vol] 26 mmol/L Normal 21-31 [facility] Comment on above: Order Comment: No: D o not add to previous draw Performed By: #### 0 0071, 58521, 44380 #### [facility] [address] [address], [place] Creatinine [Mass/Vol] 3.14 mg/dL High 0.60-1.20 [facility] Comment on above: Order Comment: No: D o not add to previous draw Performed By: #### 0 0071, 18856, 66192 #### [facility] [address] [address], [place] GFR/1.73 sq M predicted among blacks MDRD (S/P/Bld) [Vol rate/Area] 18 ml/min/1.73sq m Abnormal >60 [facility] Comment on above: Order Comment: No: D o not add to previous draw Result Comment: Calc ulation may not be valid for patients over 70 years Performed By: #### 0 0071, 99900, 13266 #### [facility] [address] [address], [place] GFR/1.73 sq M predicted among non-blacks MDRD (S/P/Bld) [Vol rate/Area] 15 ml/min/1.73sq m Abnormal >60 [facility] Comment on above: Order Comment: No: D o not add to previous draw Result Comment: Calc ulation may not be valid for patients over 70 years Performed By: #### 0 0071, 77110, 76604 #### [facility] [address] [address], [facility] Glucose [Mass/Vol] 119 mg/dL High 70-100 [facility] Comment on above: Order Comment: No: D o not add to previous draw Performed By: #### 0 0071, 17306, 97419 #### [facility] [address] [address], [facility] Potassium [Moles/Vol] 3.8 mmol/L Normal 3.5-5.1 [facility] Comment on above: Order Comment: No: D o not add to previous draw Performed By: #### 0 0071, 83789, 12070 #### [facility] [address] [address], [facility] Sodium [Moles/Vol] 135 mmol/L Low 136-145 [facility] Comment on above: Order Comment: No: D o not add to previous draw Performed By: #### 0 0071, 47710, 11942 #### [facility] [address] [address], [facility] Urea nitrogen [Mass/Vol] 81 mg/dL High 7-25 [facility] Comment on above: Order Comment: No: D o not add to previous draw Performed By: #### 0 0071, 01479, 83815 #### [facility] [address] [address], [facility] CBC COMPLETE BLOOD COUNTon 0 10-11-2019 Erythrocyte distribution width (RBC) [Ratio] 14.4 % Normal 11.5-15.0 [facility] Comment on above: Order Comment: No: D o not add to previous draw Performed By: #### 0 0071, 66167, 25540 #### [facility] [address] [address], [facility] Hematocrit (Bld) [Volume fraction] 31.3 % Low 36.0-45.0 [facility] Comment on above: Order Comment: No: D o not add to previous draw Performed By: #### 0 0071, 85631, 68473 #### [facility] [address] [address], [facility] Hemoglobin (Bld) [Mass/Vol] 10.0 g/dL Low 12.0-15.0 [facility] Comment on above: Order Comment: No: D o not add to previous draw Performed By: #### 0 0071, , 82243 #### [facility] [address] [address], [facility] MCH (RBC) [Entitic mass] 29.4 pg Normal 27.0-33.0 [facility] Comment on above: Order Comment: No: D o not add to previous draw Performed By: #### 0 0071, , 43576 #### [facility] [address] [address], [facility] MCHC (RBC) [Mass/Vol] 31.9 g/dL Low 32.0-35.0 [facility] Comment on above: Order Comment: No: D o not add to previous draw Performed By: #### [id number], , [id number] #### [facility] [address] [address], [place] MCV (RBC) [Entitic vol] 92.1 fL Normal 82.0-98.0 [facility] Comment on above: Order Comment: No: D o not add to previous draw Performed By: #### 0 0071, 86634, 35250 #### [facility] [address] [address], [place] Nucleated RBC/100 WBC (Bld) [Ratio] 0 % Normal 0-0 [facility] Comment on above: Order Comment: No: D o not add to previous draw Performed By: #### 0 0071, 21773, 14763 #### [facility] [address] [address], [facility] PLAT CNT 186 10*3/uL Normal 150-400 [facility] Comment on above: Order Comment: No: D o not add to previous draw Performed By: #### 0 0071, 28021, 88374 #### [facility] [address] [address], [facility] RBC (Bld) [#/Vol] 3.40 10*6/uL Low 3.80-5.00 [facility] Comment on above: Order Comment: No: D o not add to previous draw Performed By: #### 0 0071, 73530, 55108 #### [facility] [address] [address], [facility] WBC (Bld) [#/Vol] 7.08 10*3/uL Normal 4.00-10.60 [facility] Comment on above: Order Comment: No: D o not add to previous draw Performed By: #### 0 0071, 81959, 20952 #### [facility] [address] [address], [facility] LIVER BATTERYon 10-11-2019 Albumin [Mass/Vol] 4.0 g/dL Normal 3.5-5.7 [facility] Comment on above: Performed By: #### 0 0071, 06985, 58738 #### [facility] [address] [address], [facility] ALKALINE PHOSPH 76 IU/L Normal 34-104 [facility] Comment on above: Performed By: #### 0 0071, 73925, 04929 #### [facility] [address] [address], [facility] ALT [Catalytic activity/Vol] 17 U/L Normal 7-52 [facility] Comment on above: Performed By: #### 0 0071, 03480, 50866 #### [facility] [address] [address], [facility] AST [Catalytic activity/Vol] 15 U/L Normal 13-39 [facility] Comment on above: Performed By: #### 0 0071, 08834, 58860 #### [facility] [address] [address], [facility] Bilirubin [Mass/Vol] 0.4 mg/dL Normal 0.3-1.0 [facility] Comment on above: Performed By: #### 0 0071, 25247, 70936 #### [facility] [address] [address], [facility] Bilirubin.direct [Mass/Vol] 0.1 mg/dL Normal 0.0-0.2 [facility] Comment on above: Performed By: #### 0 0071, 73579, 55544 #### [facility] [address] [address], [facility] Protein [Mass/Vol] 6.4 g/dL Normal 6.0-8.3 [facility] Comment on above: Performed By: #### 0 0071, 77608, 49994 #### [facility] [address] [address], [facility] MAGNESIUM BLOODon 10-11-2019 Magnesium [Mass/Vol] 2.2 mg/dL Normal 1.9-2.7 [facility] Comment on above: Order Comment: No: D o not add to previous draw Performed By: #### 0 0071, 34133, 54208 #### [facility] [address] [address], [facility] POC GLUCOSE LABon 10-11-2019 Glucose [Mass/Vol] 127 mg/dL High 70-100 [facility] Comment on above: Performed By: #### 0 0071, 57472, 85438 #### [facility] [address] [address], [place] Glucose [Mass/Vol] 203 mg/dL High 70-100 [facility] Comment on above: Performed By: #### 0 0071, 50586, 84364 #### [facility] [address] [address], [place] Glucose [Mass/Vol] 242 mg/dL High 70-100 [facility] Comment on above: Performed By: #### 0 0071, 98635, 33112 #### [facility] [address] [address], [place] Glucose [Mass/Vol] 121 mg/dL High 70-100 [facility] Comment on above: Performed By: #### 0 0071, 52369, 75420 #### [facility] [address] [place] [address], [facility] LIVERon 10-11-2019 LIVER [facility] Department of Radiology [address] [place] [address] [id number] == Patient Name: CINTHYA WILSON : 1945 Sex: F Age: Race: White Pt. Location: [id number] Patient Status: I Ordered Date: 10/10/2019 11:35:00 [...] reports Electronically signed: Donal Sweeney. Transcribed by: [email or web address], User Resident: JAKOB CURIEL Electronically Signed by: DONAL SWEENEY @ 10/11/2019 11:04 AM I personally read this/these film(s) with this resident Normal [facility] Comment on above: Order Comment: No: D o not add to previous draw BASIC METABOLIC PANELon 09-12 Calcium [Mass/Vol] 9.0 mg/dL Normal 8.6-10.3 [facility] Comment on above: Order Comment: No: D o not add to previous draw Performed By: #### 0 0071, 98381, 72549 #### [facility] [address] [address], [place] Chloride [Moles/Vol] 100 mmol/L Normal 98-107 [facility] Comment on above: Order Comment: No: D o not add to previous draw Performed By: #### 0 0071, 95540, 77798 #### [facility] [address] [address], [place] CO2 [Moles/Vol] 24 mmol/L Normal 21-31 [facility] Comment on above: Order Comment: No: D o not add to previous draw Performed By: #### 0 0071, 51220, 13290 #### [facility] [address] [address], [place] Creatinine [Mass/Vol] 3.14 mg/dL High 0.60-1.20 [facility] Comment on above: Order Comment: No: D o not add to previous draw Performed By: #### 0 0071, 23264, 00310 #### [facility] [address] [address], [place] GFR/1.73 sq M predicted among blacks MDRD (S/P/Bld) [Vol rate/Area] 18 ml/min/1.73sq m Abnormal >60 [facility] Comment on above: Order Comment: No: D o not add to previous draw Result Comment: Calc ulation may not be valid for patients over 70 years Performed By: #### 0 0071, , 25598 #### [facility] [address] [address], [place] GFR/1.73 sq M predicted among non-blacks MDRD (S/P/Bld) [Vol rate/Area] 15 ml/min/1.73sq m Abnormal >60 [facility] Comment on above: Order Comment: No: D o not add to previous draw Result Comment: Calc ulation may not be valid for patients over 70 years Performed By: #### 0 0071, , 56408 #### [facility] [address] [address], [place] Glucose [Mass/Vol] 136 mg/dL High 70-100 [facility] Comment on above: Order Comment: No: D o not add to previous draw Performed By: #### 0 0071, 50019, 40571 #### [facility] [address] [address], [place] Potassium [Moles/Vol] 3.7 mmol/L Normal 3.5-5.1 [facility] Comment on above: Order Comment: No: D o not add to previous draw Performed By: #### 0 0071, 08306, 83475 #### [facility] [address] [address], [facility] Sodium [Moles/Vol] 135 mmol/L Low 136-145 [facility] Comment on above: Order Comment: No: D o not add to previous draw Performed By: #### 0 0071, 55947, 27983 #### [facility] [address] [address], [facility] Urea nitrogen [Mass/Vol] 74 mg/dL High 7-25 [facility] Comment on above: Order Comment: No: D o not add to previous draw Performed By: #### 0 0071, 36670, 58660 #### [facility] [address] [address], [facility] CBC COMPLETE BLOOD COUNTon 10-10-2019 Erythrocyte distribution width (RBC) [Ratio] 14.5 % Normal 11.5-15.0 [facility] Comment on above: Order Comment: No: D o not add to previous draw Performed By: #### 0 0071, 82613, 44762 #### [facility] [address] [address], [facility] Hematocrit (Bld) [Volume fraction] 29.8 % Low 36.0-45.0 [facility] Comment on above: Order Comment: No: D o not add to previous draw Performed By: #### 0 0071, 05236, 26279 #### [facility] [address] [address], [place] Hemoglobin (Bld) [Mass/Vol] 9.7 g/dL Low 12.0-15.0 [facility] Comment on above: Order Comment: No: D o not add to previous draw Performed By: #### 0 0071, 83596, 30993 #### [facility] [address] [address], [place] MCH (RBC) [Entitic mass] 29.5 pg Normal 27.0-33.0 [facility] Comment on above: Order Comment: No: D o not add to previous draw Performed By: #### 0 0071, 81224, 15513 #### [facility] [address] [address], [facility] MCHC (RBC) [Mass/Vol] 32.6 g/dL Normal 32.0-35.0 [facility] Comment on above: Order Comment: No: D o not add to previous draw Performed By: #### 0 0071, 27688, 55941 #### [facility] [address] [address], [facility] MCV (RBC) [Entitic vol] 90.6 fL Normal 82.0-98.0 T abimael [facility] Comment on above: Order Comment: No: D o not add to previous draw Performed By: #### 0 0071, 43634, 22247 #### [facility] [address] [address], [facility] Nucleated RBC/100 WBC (Bld) [Ratio] 0 % Normal 0-0 [facility] Comment on above: Order Comment: No: D o not add to previous draw Performed By: #### 0 0071, 36373, 31867 #### [facility] [address] [address], [facility] PLAT CNT 177 10*3/uL Normal 150-400 [facility] Comment on above: Order Comment: No: D o not add to previous draw Performed By: #### 0 0071, 54979, 62435 #### [facility] [address] [address], [facility] RBC (Bld) [#/Vol] 3.29 10*6/uL Low 3.80-5.00 [facility] Comment on above: Order Comment: No: D o not add to previous draw Performed By: #### 0 0071, 01946, 57381 #### [facility] [address] [address], [facility] WBC (Bld) [#/Vol] 6.93 10*3/uL Normal 4.00-10.60 [facility] Comment on above: Order Comment: No: D o not add to previous draw Performed By: #### 0 0071, 37484, 62697 #### [facility] [address] [address], [facility] MAGNESIUM BLOODon 10-10-2019 Magnesium [Mass/Vol] 2.2 mg/dL Normal 1.9-2.7 [facility] Comment on above: Order Comment: No: D o not add to previous draw Performed By: #### 0 0071, 03574, 08491 #### [facility] [address] [address], [facility] POC GLUCOSE LABon 10-10-2019 Glucose [Mass/Vol] 134 mg/dL High 70-100 [facility] Comment on above: Performed By: #### 0 0071, 21816, 73619 #### [facility] [address] [address], [place] Glucose [Mass/Vol] 177 mg/dL High 70-100 [facility] Comment on above: Performed By: #### 0 0071, 61764, 30908 #### [facility] [address] [address], [place] Glucose [Mass/Vol] 254 mg/dL High 70-100 [facility] Comment on above: Performed By: #### 0 0071, 35250, 43466 #### [facility] [address] [address], [place] BASIC METABOLIC PANELon 09-11 Calcium [Mass/Vol] 9.5 mg/dL Normal 8.6-10.3 [facility] Comment on above: Order Comment: No: D o not add to previous draw Performed By: #### 0 0071, 69356, 88045 #### [facility] [address] [address], [place] Chloride [Moles/Vol] 100 mmol/L Normal 98-107 [facility] Comment on above: Order Comment: No: D o not add to previous draw Performed By: #### 0 0071, 02270, 58029 #### [facility] [address] [address], [place] CO2 [Moles/Vol] 25 mmol/L Normal 21-31 [facility] Comment on above: Order Comment: No: D o not add to previous draw Performed By: #### 0 0071, 95878, 24110 #### [facility] [address] [address], [place] Creatinine [Mass/Vol] 2.94 mg/dL High 0.60-1.20 [facility] Comment on above: Order Comment: No: D o not add to previous draw Performed By: #### 0 0071, 48400, 62871 #### [facility] [address] [address], [place] GFR/1.73 sq M predicted among blacks MDRD (S/P/Bld) [Vol rate/Area] 19 ml/min/1.73sq m Abnormal >60 [facility] Comment on above: Order Comment: No: D o not add to previous draw Result Comment: Calc ulation may not be valid for patients over 70 years Performed By: #### 0 0071, 37320, 74949 #### [facility] [address] [address], [place] GFR/1.73 sq M predicted among non-blacks MDRD (S/P/Bld) [Vol rate/Area] 16 ml/min/1.73sq m Abnormal >60 [facility] Comment on above: Order Comment: No: D o not add to previous draw Result Comment: Calc ulation may not be valid for patients over 70 years Performed By: #### 0 0071, 69203, 79966 #### [facility] [address] [address], [facility] Glucose [Mass/Vol] 147 mg/dL High 70-100 [facility] Comment on above: Order Comment: No: D o not add to previous draw Performed By: #### 0 0071, 99998, 70121 #### [facility] [address] [address], [facility] Potassium [Moles/Vol] 3.8 mmol/L Normal 3.5-5.1 [facility] Comment on above: Order Comment: No: D o not add to previous draw Performed By: #### 0 0071, 38415, 20317 #### [facility] [address] [address], [facility] Sodium [Moles/Vol] 136 mmol/L Normal 136-145 [facility] Comment on above: Order Comment: No: D o not add to previous draw Performed By: #### 0 0071, 62373, 77172 #### [facility] [address] [place] [address], [facility] Urea nitrogen [Mass/Vol] 66 mg/dL High 7-25 [facility] Comment on above: Order Comment: No: D o not add to previous draw Performed By: #### 0 0071, 46087, 09341 #### [facility] [address] [place] [address], [facility] CBC W/DIFFon 10-09-2019 ABS BASOPHILS 0.0 10*3/uL Normal 0.0-0.2 [facility] Comment on above: Order Comment: No: D o not add to previous draw Performed By: #### 0 0071, 49168, 58605 #### [facility] [address] [address], [facility] ABS IMM GRANS 0.0 10*3/uL Normal 0.0-0.2 [facility] Comment on above: Order Comment: No: D o not add to previous draw Performed By: #### 0 0071, 21617, 54317 #### [facility] [address] [address], [facility] ABS NEUTROPHILS 4.3 10*3/uL Normal 1.6-7.6 [facility] Comment on above: Order Comment: No: D o not add to previous draw Performed By: #### 0 0071, 21594, 85900 #### [facility] [address] [address], [facility] Basophils/100 WBC (Bld) 0.6 % Normal 0.0-1.0 T [facility] Comment on above: Order Comment: No: D o not add to previous draw Performed By: #### 0 0071, , 64221 #### [facility] [address] [address], [facility] Eosinophils (Bld) [#/Vol] 0.6 10*3/uL High 0.0-0.5 [facility] Comment on above: Order Comment: No: D o not add to previous draw Performed By: #### 0 0071, 44994, 58456 #### [facility] [address] [place] [address], [facility] Eosinophils/100 WBC (Bld) 7.7 % High 0.0-6.0 [facility] Comment on above: Order Comment: No: D o not add to previous draw Performed By: #### 0 0071, 22612, 99395 #### [facility] [address] [place] [address], [place] Erythrocyte distribution width (RBC) [Ratio] 14.4 % Normal 11.5-15.0 [facility] Comment on above: Order Comment: No: D o not add to previous draw Performed By: #### 0 0071, 94912, 67373 #### [facility] [address] [address], [place] Hematocrit (Bld) [Volume fraction] 32.7 % Low 36.0-45.0 [facility] Comment on above: Order Comment: No: D o not add to previous draw Performed By: #### 0 0071, 55735, 33202 #### [facility] [address] [address], [facility] Hemoglobin (Bld) [Mass/Vol] 10.5 g/dL Low 12.0-15.0 [facility] Comment on above: Order Comment: No: D o not add to previous draw Performed By: #### 0 0071, 49590, 13207 #### [facility] [address] [place] [address], [facility] IMMATURE GRANS 0.4 % Normal 0.0-1.0 [facility] Comment on above: Order Comment: No: D o not add to previous draw Performed By: #### 0 0071, 81446, 78474 #### [facility] [address] [place] [address], [facility] Lymphocytes (Bld) [#/Vol] 1.3 10*3/uL Normal 1.2-4.0 [facility] Comment on above: Order Comment: No: D o not add to previous draw Performed By: #### 0 0071, 89627, 59715 #### [facility] [address] [place] [address], [facility] Lymphocytes/100 WBC (Bld) 17.7 % Low 20.0-45.0 [facility] Comment on above: Order Comment: No: D o not add to previous draw Performed By: #### 0 0071, 31118, 15531 #### [facility] [address] [address], [facility] MCH (RBC) [Entitic mass] 29.3 pg Normal 27.0-33.0 [facility] Comment on above: Order Comment: No: D o not add to previous draw Performed By: #### 0 0071, 52520, 06414 #### [facility] [address] MCHC (RBC) [Mass/Vol] 32.1 g/dL Normal 32.0-35.0 [facility] Comment on above: Order Comment: No: D o not add to previous draw Performed By: #### 0 0071, 94482, 04743 #### [facility] [address] [place] [id number], [facility] MCV (RBC) [Entitic vol] 91.3 fL Normal 82.0-98.0 T [facility] Comment on above: Order Comment: No: D o not add to previous draw Performed By: #### 0 0071, 26708, 59479 #### [facility] [address] [place] [address], [facility] Monocytes (Bld) [#/Vol] 1.1 10*3/uL High 0.1-1.0 [facility] Comment on above: Order Comment: No: D o not add to previous draw Performed By: #### 0 0071, 65639, 27934 #### [facility] [address] [place] [id number], [facility] MONOS 15.0 % High 5.0-12.0 [facility] Comment on above: Order Comment: No: D o not add to previous draw Performed By: #### 0 0071, 58445, 21609 #### [facility] [address] [place] [id number], [facility] Neutrophils/100 WBC (Bld) 58.6 % Normal 40.0-72.0 [facility] Comment on above: Order Comment: No: D o not add to previous draw Performed By: #### 0 0071, 88245, 01717 #### [facility] [address] [place] [id number], [facility] Nucleated RBC/100 WBC (Bld) [Ratio] 0 % Normal 0-0 [facility] Comment on above: Order Comment: No: D o not add to previous draw Performed By: #### 0 0071, 60652, 91333 #### [facility] [address] [address], [place] PLAT CNT 191 10*3/uL Normal 150-400 [facility] Comment on above: Order Comment: No: D o not add to previous draw Performed By: #### 0 0071, 65987, 31038 #### [facility] [address] [address], [facility] RBC (Bld) [#/Vol] 3.58 10*6/uL Low 3.80-5.00 [facility] Comment on above: Order Comment: No: D o not add to previous draw Performed By: #### 0 0071, 35201, 83527 #### [facility] [address] [address], [facility] WBC (Bld) [#/Vol] 7.27 10*3/uL Normal 4.00-10.60 [facility] Comment on above: Order Comment: No: D o not add to previous draw Performed By: #### 0 0071, 48339, 72264 #### [facility] [address] [place] [address], [facility] MAGNESIUM BLOODon 10-09-2019 Magnesium [Mass/Vol] 2.4 mg/dL Normal 1.9-2.7 [facility] Comment on above: Order Comment: No: D o not add to previous draw Performed By: #### 0 0071, 26453, 40423 #### [facility] [address] [address], [facility] PHOSPHORUS BLOODon 0 Phosphate [Mass/Vol] 4.2 mg/dL Normal 2.5-5.0 [facility] Comment on above: Order Comment: No: D o not add to previous draw Performed By: #### 0 0071, 44666, 18161 #### [facility] [address] [address], [facility] POC GLUCOSE LABon 10-09-2019 Glucose [Mass/Vol] 164 mg/dL High 70-100 [facility] Comment on above: Performed By: #### 0 0071, 26126, 40144 #### [facility] [address] [address], [facility] Glucose [Mass/Vol] 164 mg/dL High 70-100 [facility] Comment on above: Performed By: #### 0 0071, 90553, 23729 #### [facility] [address] [place] [address], [facility] Glucose [Mass/Vol] 314 mg/dL High 70-100 [facility] Comment on above: Performed By: #### 0 0071, 72333, 04511 #### [facility] [address] *SARS-CoV-2 COVID-19on 10-07 [id number] Not Detected Normal Not Detected [facility] Comment on above: Order Comment: The [facility] SARS-CoV-2 assay is a nucleic acid amplification test intended for the qualitative detection of RNA from SARS-CoV-2 isolated and purified from nasopharyngeal (A R COLLECTIONS REP),oropharyngeal (OP), nasal swab, sputum, and bronchoalveolar lavage (BAL) specimens from patients with signs and symptoms of infection who are suspected of COVID-19. Results are for the identification of SARS-CoV-2 RNA. The SARS-CoV-2 RNA is generally detectable during the acute phase of infection. The [facility] SARS-CoV-2 Assay on the [employer] system is intended for use by laboratory personnel specifically instructed and trained in the operation of the [employer] system. The [facility] SARS-CoV-2 assay is [...] and epidemiological information. Performed By: #### 3 6704 #### [facility] [address] [place] [address], [place] BASIC METABOLIC PANELon 08-2 Calcium [Mass/Vol] 9.5 mg/dL Normal 8.6-10.3 [facility] Comment on above: Order Comment: No: D o not add to previous draw Performed By: #### 0 0071, 92865, 76778 #### [facility] [address] [place] [address], [place] Chloride [Moles/Vol] 100 mmol/L Normal 98-107 [facility] Comment on above: Order Comment: No: D o not add to previous draw Performed By: #### 0 [id number], [id number], [id number] #### [facility] [address] [address], [place] CO2 [Moles/Vol] 26 mmol/L Normal 21-31 [facility] Comment on above: Order Comment: No: D o not add to previous draw Performed By: #### 0 [id number], [id number], [id number] #### [facility] [address] [address], [place] Creatinine [Mass/Vol] 2.70 mg/dL High 0.60-1.20 [facility] Comment on above: Order Comment: No: D o not add to previous draw Performed By: #### 0 [id number], [id number], [id number] #### [facility] [address] [address], [place] GFR/1.73 sq M predicted among blacks MDRD (S/P/Bld) [Vol rate/Area] 21 ml/min/1.73sq m Abnormal >60 [facility] Comment on above: Order Comment: No: D o not add to previous draw Result Comment: Calc ulation may not be valid for patients over 70 years Performed By: #### 0 [id number], [id number], [id number] #### [facility] [address] [address], [place] GFR/1.73 sq M predicted among non-blacks MDRD (S/P/Bld) [Vol rate/Area] 17 ml/min/1.73sq m Abnormal >60 [facility] Comment on above: Order Comment: No: D o not add to previous draw Result Comment: Calc ulation may not be valid for patients over 70 years Performed By: #### 0 [id number], [id number], [id number] #### [facility] [address] [address], [facility] Glucose [Mass/Vol] 135 mg/dL High 70-100 [facility] Comment on above: Order Comment: No: D o not add to previous draw Performed By: #### 0 0071, [id number], [id number] #### [facility] [address] [address], [facility] Potassium [Moles/Vol] 3.5 mmol/L Normal 3.5-5.1 [facility] Comment on above: Order Comment: No: D o not add to previous draw Performed By: #### 0 0071, [id number], [id number] #### [facility] [address] [place] [address], [facility] Sodium [Moles/Vol] 135 mmol/L Low 136-145 [facility] Comment on above: Order Comment: No: D o not add to previous draw Performed By: #### 0 0071, [id number], [id number] #### [facility] [address] [facility] [place] [address], [facility] Urea nitrogen [Mass/Vol] 56 mg/dL High 7-25 [facility] Comment on above: Order Comment: No: D o not add to previous draw Performed By: #### 0 0071, 25597, 74711 #### [facility] [address] [place] [address], [facility] CBC W/DIFFon 10-08-2019 ABS BASOPHILS 0.1 10*3/uL Normal 0.0-0.2 [facility] Comment on above: Performed By: #### 5 0103 #### [facility] [address] [facility] [place] [address], [facility] ABS IMM GRANS 0.0 10*3/uL Normal 0.0-0.2 [facility] Comment on above: Performed By: #### 5 0103 #### [facility] [address] [facility] [place] [address], [facility] ABS NEUTROPHILS 4.7 10*3/uL Normal 1.6-7.6 [facility] Comment on above: Performed By: #### 5 0103 #### [facility] [address] [place] [address], [facility] Basophils/100 WBC (Bld) 0.6 % Normal 0.0-1.0 T abimael [facility] Comment on above: Performed By: #### 5 0103 #### [facility] [address] [facility] [place] [address], [facility] Eosinophils (Bld) [#/Vol] 0.7 10*3/uL High 0.0-0.5 [facility] Comment on above: Performed By: #### 5 0103 #### [facility] [address] [place] [address], [facility] Eosinophils/100 WBC (Bld) 8.4 % High 0.0-6.0 [facility] Comment on above: Performed By: #### 5 0103 #### [facility] [address] [facility]. [address] Erythrocyte distribution width (RBC) [Ratio] 14.3 % Normal 11.5-15.0 [facility] Comment on above: Performed By: #### 5 0103 #### [facility] [address] Hematocrit (Bld) [Volume fraction] 31.4 % Low 36.0-45.0 [facility] Comment on above: Performed By: #### 5 3 #### [facility] [address] Hemoglobin (Bld) [Mass/Vol] 10.1 g/dL Low 12.0-15.0 [facility] Comment on above: Performed By: #### 102 #### [facility] [address] IMMATURE GRANS 0.5 % Normal 0.0-1.0 [facility] Comment on above: Performed By: #### 102 #### [facility] [address] Lymphocytes (Bld) [#/Vol] 1.3 10*3/uL Normal 1.2-4.0 [facility] Comment on above: Performed By: #### 102 #### [facility] [address] Lymphocytes/100 WBC (Bld) 17.0 % Low 20.0-45.0 [facility] Comment on above: Performed By: #### 102 #### [facility] [address] MCH (RBC) [Entitic mass] 29.5 pg Normal 27.0-33.0 [facility] Comment on above: Performed By: #### 3 #### [facility] [address] MCHC (RBC) [Mass/Vol] 32.2 g/dL Normal 32.0-35.0 [facility] Comment on above: Performed By: #### 102 #### [facility] [address] MCV (RBC) [Entitic vol] 91.8 fL Normal 82.0-98.0 [facility] Comment on above: Performed By: #### 102 #### [facility] [address] [place] [address], [facility] Monocytes (Bld) [#/Vol] 1.1 10*3/uL High 0.1-1.0 [facility] Comment on above: Performed By: #### 5 0103 #### [facility] [address] [facility] [place] [place] [address], [facility] MONOS 13.4 % High 5.0-12.0 [facility] Comment on above: Performed By: #### 5 0103 #### [facility] [address] [facility] [place] [address], [facility] Neutrophils/100 WBC (Bld) 60.1 % Normal 40.0-72.0 [facility] Comment on above: Performed By: #### 102 #### [facility] [address] [facility] [place] [address], [facility] Nucleated RBC/100 WBC (Bld) [Ratio] 0 % Normal 0-0 [facility] Comment on above: Performed By: #### 102 #### [facility] [address] [facility] [place] [place] [address], [facility] PLAT CNT 189 10*3/uL Normal 150-400 [facility] Comment on above: Performed By: #### 3 #### [facility] [address] [facility] [place] [place] [address], [facility] RBC (Bld) [#/Vol] 3.42 10*6/uL Low 3.80-5.00 [facility] Comment on above: Performed By: #### 5 0103 #### [facility] [address] [facility] [place] [place] [address], [facility] WBC (Bld) [#/Vol] 7.86 10*3/uL Normal 4.00-10.60 [facility] Comment on above: Performed By: #### 3 #### [facility] [address] [facility] [place] [address], [facility] CREATININE URINE RANDOMon Creatinine [Mass/Vol] 79.0 mg/dL Normal [facility] Comment on above: Order Comment: No: D o not add to previous draw Result Comment: Ther e are no established reference values for random urine specimens Performed By: #### 2 5706, 60493 #### [facility] [address] [address], [place] MAGNESIUM BLOODon 10-08-2019 Magnesium [Mass/Vol] 1.7 mg/dL Low 1.9-2.7 [facility] Comment on above: Order Comment: No: D o not add to previous draw Performed By: #### 0 0071, 51073, 28068 #### [facility] [address] [address], [facility] PHOSPHORUS BLOODon 0 Phosphate [Mass/Vol] 3.8 mg/dL Normal 2.5-5.0 [facility] Comment on above: Order Comment: No: D o not add to previous draw Performed By: #### 0 0071, 37934, 06236 #### [facility] [address] [place] [address], [place] POC GLUCOSE LABon 10-08-2019 Glucose [Mass/Vol] 191 mg/dL High 70-100 [facility] Comment on above: Performed By: #### 8 5499 #### [facility] [address] [place] [address], [place] Glucose [Mass/Vol] 197 mg/dL High 70-100 [facility] Comment on above: Performed By: #### 8 5499 #### [facility] [address] [address], [place] Glucose [Mass/Vol] 296 mg/dL High 70-100 [facility] Comment on above: Performed By: #### 8 5499 #### [facility] [address] [place] [address], [place] UREA NITROGEN URon 0 Urea nitrogen [Mass/Vol] 606 mg/dL Normal [facility] Comment on above: Order Comment: No: D o not add to previous draw Result Comment: Ther e are no established reference values for random urine specimens Performed By: #### 0 0071, 84048, 04520 #### [facility] [address] [address], [place] URINALYSIS REFLEXon 10-08-19 20 Appearance (U) CLEAR Normal CLEAR [facility] Comment on above: Order Comment: No: D o not add to previous draw Performed By: #### 0 0071, 06604, 87879 #### [facility] [address] [address], [place] Bilirubin [Mass/Vol] Negative Normal NEGATIVE [facility] Comment on above: Order Comment: No: D o not add to previous draw Performed By: #### 0 0071, 58609, 66723 #### [facility] [address] [place] [address], [place] BLOOD Negative Normal NEGATIVE [facility] Comment on above: Order Comment: No: D o not add to previous draw Performed By: #### 0 0071, 84718, 33221 #### [facility] [address] [address], [place] Color (U) YELLOW Normal YELLOW [facility] Comment on above: Order Comment: No: D o not add to previous draw Performed By: #### 0 0071, 19236, 38397 #### [facility] [address] [place] [address], [place] EPIS NONE SEEN Normal FEW,OCC,NONE SEEN [facility] Comment on above: Order Comment: No: D o not add to previous draw Performed By: #### 0 0071, 39310, 65071 #### [facility] [address] [place] [address], [place] Glucose [Mass/Vol] 50 mg/dL Abnormal NEGATIVE [facility] Comment on above: Order Comment: No: D o not add to previous draw Performed By: #### 0 0071, 95658, 26818 #### [facility] [address] [place] [address], [facility] KETONE Negative Normal NEGATIVE [facility] Comment on above: Order Comment: No: D o not add to previous draw Performed By: #### 0 0071, 94910, 37934 #### [facility] [address] [place] [address], [facility] LEUK TOD Negative Normal NEGATIVE [facility] Comment on above: Order Comment: No: D o not add to previous draw Performed By: #### 0 0071, 83242, 10963 #### [facility] [address] [address], [place] Nitrite Ql (U) Negative Normal NEGATIVE [facility] Comment on above: Order Comment: No: D o not add to previous draw Performed By: #### 0 0071, 81906, 19706 #### [facility] [address] [place] [address], [facility] pH (Bld) 6.0 Normal 5.0-8.0 [facility] Comment on above: Order Comment: No: D o not add to previous draw Performed By: #### 0 0071, 74422, 05953 #### [facility] [address] [address], [facility] Protein (U) [Mass/Vol] 100 mg/dL Abnormal NEGATIVE Th e [facility] Comment on above: Order Comment: No: D o not add to previous draw Performed By: #### 0 0071, 40040, 09690 #### [facility] [address] [address], [facility] RBC (U) [#/Vol] 0-2 Abnormal NONE SEEN [facility] Comment on above: Order Comment: No: D o not add to previous draw Performed By: #### 0 0071, 88680, 64452 #### [facility] [address] [facility] [place] [place] [address], [facility] SPEC GRAV 1.013 Low 1.015-1.020 [facility] Comment on above: Order Comment: No: D o not add to previous draw Performed By: #### 0 0071, 90497, 30396 #### [facility] [address] [place] [address], [facility] WBC UA 0-2 Abnormal NONE SEEN [facility] Comment on above: Order Comment: No: D o not add to previous draw Performed By: #### 0 0071, 04707, 49205 #### [facility] [address] [place] [address], [facility] US RENALon 10-08-2019 RENAL [facility] Department of Radiology [address] [place] [address] == Patient Name: CINTHYA WILSON : 1945 Sex: F Age: Race: White Pt. Location: [address] [place] [address] Patient Status: I Ordered Date: 10/08/2019 5:15:00 [...] hydronephrosis identified. Left-sided renal calculi. Electronically signed: Yamileth Orellana. 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 Vital Signs Date Time Vital Sign Value Performing Clinician Facility 04-05-2023 17:11-0500 Body temperature 98.1 [degF] II Lily Aldrich Work Phone: [facility] 04-05-2023 17:11-0500 Diastolic blood pressure 64 mm[Hg] II Lily Aldrich Work Phone: [facility] 04-05-2023 17:11-0500 Heart rate 67 /min II Lily Aldrich Work Phone: [facility] 04-05-2023 17:11-0500 Inhaled oxygen flow rate 3 L/min II Lily Aldrich Work Phone: [facility] 04-05-2023 17:11-0500 Respiratory rate 16 /min II Lily Aldrich Work Phone: [facility] 04-05-2023 17:11-0500 SaO2% (BldA) [Mass fraction] 100 % II Lily Aldrich Work Phone: [facility] 04-05-2023 17:11-0500 Systolic blood pressure 148 mm[Hg] II Lily Aldrich Work Phone: [facility] 04-05-2023 06:00-0500 Body weight 64.1 kg II Lily Aldrich Work Phone: [facility] 04-02-2023 14:34-0500 Body height 162.56 cm II Lily Aldrich Work Phone: [facility] 04-01-2023 21:30-0500 Diastolic blood pressure 62 mm[Hg] II Lily Aldrich Work Phone: [facility] 04-01-2023 21:30-0500 Heart rate 60 /min II Lily Aldrich Work Phone: [facility] 04-01-2023 21:30-0500 Inhaled oxygen flow rate 3 L/min II Lily Aldrich Work Phone: [facility] 04-01-2023 21:30-0500 Respiratory rate 16 /min II Lily Aldrich Work Phone: [facility] 04-01-2023 21:30-0500 SaO2% (BldA) [Mass fraction] 100 % II Lily Aldrich Work Phone: [facility] 04-01-2023 21:30-0500 Systolic blood pressure 126 mm[Hg] II Lily Aldrich Work Phone: [facility] 04-01-2023 14:40-0500 Body height 162.56 cm II Lily Aldrich Work Phone: [facility] 04-01-2023 14:40-0500 Body temperature 98.2 [degF] II Lily Aldrich Work Phone: [facility] 04-01-2023 14:40-0500 Body weight 58.96 kg II Lily Aldrich Work Phone: [facility] 03-07-2023 16:00-0500 Body temperature 97.6 [degF] II iLly Aldrich Work Phone: [facility] 03-07-2023 16:00-0500 Diastolic blood pressure 61 mm[Hg] II Lily Aldrich Work Phone: [facility] 03-07-2023 16:00-0500 Heart rate 69 /min II Lily Aldrich Work Phone: [facility] 03-07-2023 16:00-0500 Inhaled oxygen flow rate 3 L/min II Lily Aldrich Work Phone: [facility] 03-07-2023 16:00-0500 Respiratory rate 18 /min II Lily Aldrich Work Phone: [facility] 03-07-2023 16:00-0500 SaO2% (BldA) [Mass fraction] 97 % II Lily Aldrich Work Phone: [facility] 03-07-2023 16:00-0500 Systolic blood pressure 128 mm[Hg] II Lily Aldrich Work Phone: [facility] 03-07-2023 06:00-0500 Body weight 60.6 kg II Lily Aldrich Work Phone: [facility] 03-06-2023 13:52-0500 Body height 162.56 cm II Lily Aldrich Work Phone: [facility] 03-05-2023 21:36-0500 Body temperature 97.1 [degF] II Lily Aldrich Work Phone: [facility] 03-05-2023 21:36-0500 Diastolic blood pressure 59 mm[Hg] II Lily Aldrich Work Phone: [facility] 03-05-2023 21:36-0500 Heart rate 81 /min II Lily Aldrich Work Phone: [facility] 03-05-2023 21:36-0500 Inhaled oxygen flow rate 3 L/min II Lily Aldrich Work Phone: [facility] 03-05-2023 21:36-0500 Respiratory rate 18 /min II Lily Aldrich Work Phone: [facility] 03-05-2023 21:36-0500 SaO2% (BldA) [Mass fraction] 100 % II Lily Aldrich Work Phone: [facility] 03-05-2023 21:36-0500 Systolic blood pressure 101 mm[Hg] II Lily Aldrich Work Phone: [facility] 03-05-2023 17:06-0500 Body height 162.56 cm II Lily Aldrich Work Phone: [facility] 03-05-2023 17:06-0500 Body weight 60 kg II Lily Aldrich Work Phone: [facility] 01-02-2023 11:48-0500 Body temperature 98.4 [degF] II Lily Aldrich Work Phone: [facility] 01-02-2023 11:48-0500 Diastolic blood pressure 65 mm[Hg] II Lily Aldrich Work Phone: [facility] 01-02-2023 11:48-0500 Heart rate 58 /min II Lily Aldrich Work Phone: [facility] 01-02-2023 11:48-0500 Inhaled oxygen flow rate 2 L/min II Lily Aldrich Work Phone: [facility] 01-02-2023 11:48-0500 Respiratory rate 20 /min II Lily Aldrich Work Phone: [facility] 01-02-2023 11:48-0500 SaO2% (BldA) [Mass fraction] 94 % II Lily Aldrich Work Phone: [facility] 01-02-2023 11:48-0500 Systolic blood pressure 140 mm[Hg] II Lily Aldrich Work Phone: [facility] 01-02-2023 06:00-0500 Body weight 60.6 kg II Lily Aldrich Work Phone: [facility] 12-30-2022 16:15-0500 Body height 162.56 cm II Lily Aldrich Work Phone: [facility] 12-30-2022 01:30-0500 Diastolic blood pressure 53 mm[Hg] II Lily Aldrich Work Phone: [facility] 12-30-2022 01:30-0500 Heart rate 47 /min II Lily Aldrich Work Phone: [facility] 12-30-2022 01:30-0500 Inhaled oxygen flow rate 3 L/min II Lily Aldrich Work Phone: [facility] 12-30-2022 01:30-0500 SaO2% (BldA) [Mass fraction] 91 % II Lily Aldrich Work Phone: [facility] 12-30-2022 01:30-0500 Systolic blood pressure 95 mm[Hg] II Lily Aldrich Work Phone: [facility] 12-30-2022 00:46-0500 Body temperature 98.8 [degF] II Lily Aldrich Work Phone: [facility] 12-29-2022 22:10-0500 Respiratory rate 20 /min II Lily Aldrich Work Phone: [facility] 12-29-2022 21:54-0500 Body height 162.56 cm II Lily Aldrich Work Phone: [facility] 12-29-2022 21:54-0500 Body weight 63.3 kg II Lily Aldrich Work Phone: [facility] 12-16-2022 16:00-0500 Heart rate 72 /min II Lily Aldrich Work Phone: [facility] 12-16-2022 16:00-0500 Inhaled oxygen flow rate 2 L/min II Lily Aldrich Work Phone: [facility] 12-16-2022 16:00-0500 Respiratory rate 18 /min II Lily Aldrich Work Phone: [facility] 12-16-2022 16:00-0500 SaO2% (BldA) [Mass fraction] 98 % II Lily Aldrich Work Phone: [facility] 12-16-2022 15:38-0500 Body temperature 97.5 [degF] II Lily Aldrich Work Phone: [facility] 12-16-2022 15:38-0500 Diastolic blood pressure 50 mm[Hg] II Lily Aldrich Work Phone: [facility] 12-16-2022 15:38-0500 Systolic blood pressure 98 mm[Hg] II Lily Aldrich Work Phone: [facility] 12-16-2022 06:00-0500 Body weight 64.6 kg II Lily Aldrich Work Phone: [facility] 12-13-2022 20:21-0400 Body height 162.56 cm II Lily Aldrich Work Phone: [facility] 12-09-2022 16:37-0400 Body temperature 98.1 [degF] II Lily Aldrich Work Phone: [facility] 12-09-2022 16:37-0400 Diastolic blood pressure 63 mm[Hg] II Lily Aldrich Work Phone: [facility] 12-09-2022 16:37-0400 Heart rate 76 /min II Lily Aldrich Work Phone: [facility] 12-09-2022 16:37-0400 Inhaled oxygen flow rate 3 L/min II Lily Aldrich Work Phone: [facility] 12-09-2022 16:37-0400 Respiratory rate 20 /min II Lily Aldrich Work Phone: [facility] 12-09-2022 16:37-0400 SaO2% (BldA) [Mass fraction] 100 % II Lily Aldrich Work Phone: [facility] 12-09-2022 16:37-0400 Systolic blood pressure 132 mm[Hg] II Lily Aldrich Work Phone: [facility] 12-09-2022 06:00-0400 Body weight 61.2 kg II Lily Aldrich Work Phone: [facility] 12-06-2022 23:22-0400 Body height 162.56 cm II Lily Aldrich Work Phone: [facility] 12-06-2022 22:30-0400 Diastolic blood pressure 53 mm[Hg] II Lily Aldrich Work Phone: [facility] 12-06-2022 22:30-0400 Heart rate 80 /min II Lily Aldrich Work Phone: [facility] 12-06-2022 22:30-0400 Respiratory rate 20 /min II Lily Aldrich Work Phone: [facility] 12-06-2022 22:30-0400 SaO2% (BldA) [Mass fraction] 98 % II Lily Aldrich Work Phone: [facility] 12-06-2022 22:30-0400 Systolic blood pressure 103 mm[Hg] II Lily Aldrich Work Phone: [facility] 12-06-2022 21:26-0400 Inhaled oxygen flow rate 3 L/min II Lily Aldrich Work Phone: [facility] 12-06-2022 18:33-0400 Body height 162.56 cm II Lily Aldrich Work Phone: [facility] 12-06-2022 18:33-0400 Body weight 63.8 kg II Lily Aldrich Work Phone: [facility] 12-06-2022 18:32-0400 Body temperature 97.3 [degF] II Lily Aldrich Work Phone: [facility] 10-31-2022 16:00-0400 Inhaled oxygen flow rate 3 L/min II Lily Aldrich Work Phone: [facility] 10-31-2022 15:51-0400 Diastolic blood pressure 62 mm[Hg] II Lily Aldrich Work Phone: [facility] 10-31-2022 15:51-0400 Heart rate 78 /min II Lily Aldrich Work Phone: [facility] 10-31-2022 15:51-0400 Respiratory rate 16 /min II Lily Aldrich Work Phone: [facility] 10-31-2022 15:51-0400 SaO2% (BldA) [Mass fraction] 98 % II Lily Aldrich Work Phone: [facility] 10-31-2022 15:51-0400 Systolic blood pressure 100 mm[Hg] II Lily Aldrich Work Phone: [facility] 10-31-2022 11:13-0400 Body temperature 97.7 [degF] II Lily Aldrich Work Phone: [facility] 10-31-2022 05:31-0400 Body weight 64 kg II Lily Aldrich Work Phone: [facility] 10-30-2022 15:22-0400 Body height 162.56 cm II Lily Aldrich Work Phone: [facility] 10-30-2022 00:16-0400 Body height 162.56 cm II Lily Aldrich Work Phone: [facility] 10-30-2022 00:16-0400 Body temperature 99.4 [degF] II Lily Aldrich Work Phone: [facility] 10-30-2022 00:16-0400 Body weight 62.5 kg II iLly Aldrich Work Phone: [facility] 10-30-2022 00:16-0400 Diastolic blood pressure 43 mm[Hg] II Lily Aldrich Work Phone: [facility] 10-30-2022 00:16-0400 Heart rate 49 /min II Lily Aldrich Work Phone: [facility] 10-30-2022 00:16-0400 Inhaled oxygen flow rate 4 L/min II Lily Aldrich Work Phone: [facility] 10-30-2022 00:16-0400 Respiratory rate 16 /min II Lily Aldrich Work Phone: [facility] 10-30-2022 00:16-0400 SaO2% (BldA) [Mass fraction] 97 % II Lily Aldrich Work Phone: [facility] 10-30-2022 00:16-0400 Systolic blood pressure 88 mm[Hg] II Lily Aldrich Work Phone: [facility] 05-20-2022 15:19-0400 Body temperature 98.3 [degF] II Lily Aldrich Work Phone: [facility] 05-20-2022 15:19-0400 Diastolic blood pressure 62 mm[Hg] II Lily Aldrich Work Phone: [facility] 05-20-2022 15:19-0400 Heart rate 68 /min II Lily Aldrich Work Phone: [facility] 05-20-2022 15:19-0400 Inhaled oxygen flow rate 3 L/min II Lily Aldrich Work Phone: [facility] 05-20-2022 15:19-0400 Respiratory rate 16 /min II Lily Aldrich Work Phone: [facility] 05-20-2022 15:19-0400 SaO2% (BldA) [Mass fraction] 100 % II Lily Aldrich Work Phone: [facility] 05-20-2022 15:19-0400 Systolic blood pressure 147 mm[Hg] II Lily Aldrich Work Phone: [facility] 05-20-2022 06:00-0400 Body weight 62.4 kg II Lily Aldrich Work Phone: [facility] 05-17-2022 18:19-0400 Body height 162.56 cm II Lily Aldrich Work Phone: [facility] 05-02-2022 14:40-0400 Diastolic blood pressure 66 mm[Hg] II Lily Aldrich Work Phone: [facility] 05-02-2022 14:40-0400 Heart rate 66 /min II Lily Aldrich Work Phone: [facility] 05-02-2022 14:40-0400 Inhaled oxygen flow rate 3 L/min II Lily Aldrich Work Phone: [facility] 05-02-2022 14:40-0400 Respiratory rate 18 /min II Lily Aldrich Work Phone: [facility] 05-02-2022 14:40-0400 SaO2% (BldA) [Mass fraction] 97 % II Lily Aldrich Work Phone: [facility] 05-02-2022 14:40-0400 Systolic blood pressure 131 mm[Hg] II Lily Aldrich Work Phone: [facility] 05-02-2022 14:30-0400 Diastolic blood pressure 57 mm[Hg] II Lily Aldrich Work Phone: [facility] 05-02-2022 14:30-0400 Heart rate 56 /min II Lily Aldrich Work Phone: [facility] 05-02-2022 14:30-0400 Inhaled oxygen flow rate 3 L/min II Lily Aldrich Work Phone: [facility] 05-02-2022 14:30-0400 Respiratory rate 22 /min II Liyl Aldrich Work Phone: [facility] 05-02-2022 14:30-0400 SaO2% (BldA) [Mass fraction] 98 % II Lily Aldrich Work Phone: [facility] 05-02-2022 14:30-0400 Systolic blood pressure 134 mm[Hg] II Lily Aldrich Work Phone: [facility] 05-02-2022 13:27-0400 Body height 162.56 cm II Lily Aldrich Work Phone: [facility] 05-02-2022 13:27-0400 Body weight 63.5 kg II Lily Aldrich Work Phone: [facility] 04-18-2022 11:00-0500 Body height 163.19 cm Maxime Bhatti Other [employer] Other 04-18-2022 11:00-0500 Body mass index (BMI) [Ratio] 25.71 kg/m2 Maxime Bhatti Other [employer] Other 04-18-2022 11:00-0500 Body temperature 97.8 [degF] Maxime Bhatti Other [employer] Other 04-18-2022 11:00-0500 Body weight 68.49 kg Maxime Bhatti Other [employer] Other 04-18-2022 11:00-0500 Diastolic blood pressure 56 mm[Hg] Maxime Bhatti Other [employer] Other 04-18-2022 11:00-0500 SaO2% (BldA) [Mass fraction] 91 % Maxime Bhatti Other [employer] Other 04-18-2022 11:00-0500 Systolic blood pressure 102 mm[Hg] Maxime Bhatti Other [employer] Other 02-27-2022 13:20-0500 Body temperature 98.8 [degF] II Lily Aldrich Work Phone: [facility] 02-27-2022 13:20-0500 Diastolic blood pressure 55 mm[Hg] II Lily Aldrich Work Phone: [facility] 02-27-2022 13:20-0500 Heart rate 68 /min II Lily Aldrich Work Phone: [facility] 02-27-2022 13:20-0500 Inhaled oxygen flow rate 3 L/min II Lily Aldrich Work Phone: [facility] 02-27-2022 13:20-0500 Respiratory rate 16 /min II Lily Aldrich Work Phone: [facility] 02-27-2022 13:20-0500 SaO2% (BldA) [Mass fraction] 99 % II Lily Aldrich Work Phone: [facility] 02-27-2022 13:20-0500 Systolic blood pressure 123 mm[Hg] II Lily Aldrich Work Phone: [facility] 02-27-2022 03:06-0500 Body weight 74.3 kg II Lily Aldrich Work Phone: [facility] 02-23-2022 15:27-0500 Body height 162.56 cm II Lily Aldrich Work Phone: [facility] 02-22-2022 20:12-0500 Diastolic blood pressure 69 mm[Hg] II Lily Aldrich Work Phone: [facility] 02-22-2022 20:12-0500 Heart rate 71 /min II Lily Aldrich Work Phone: [facility] 02-22-2022 20:12-0500 Inhaled oxygen flow rate 3 L/min II Lily Aldrich Work Phone: [facility] 02-22-2022 20:12-0500 Respiratory rate 24 /min II Lily Aldrich Work Phone: [facility] 02-22-2022 20:12-0500 SaO2% (BldA) [Mass fraction] 100 % II Lily Aldrich Work Phone: [facility] 02-22-2022 20:12-0500 Systolic blood pressure 155 mm[Hg] II Lily Aldrich Work Phone: [facility] 02-22-2022 19:24-0500 Body height 162.56 cm II Lily Aldrich Work Phone: [facility] 02-22-2022 19:24-0500 Body weight 73.5 kg II Lily Aldrich Work Phone: [facility] 02-22-2022 18:38-0500 Body temperature 98.3 [degF] II Lily Aldrich Work Phone: [facility] 02-08-2022 13:00-0500 Body height 163.19 cm Aztoya [employer] Other [place] [employer] Other 02-08-2022 13:00-0500 Diastolic blood pressure 60 mm[Hg] Aziz Xray [employer] Other [employer] Other 02-08-2022 13:00-0500 Respiratory rate 18 /min Webydo.toya [employer] Other [employer] Other 02-08-2022 13:00-0500 Systolic blood pressure 112 mm[Hg] Aziz [employer] Other [employer] Other 01-17-2022 12:30-0500 Body height 163.19 cm Tessie Walker Other [employer] Other 01-17-2022 12:30-0500 Body mass index (BMI) [Ratio] 25.54 kg/m2 Tessie Walker Other [employer] Other 01-17-2022 12:30-0500 Body temperature 97.8 [degF] Tessie Walker Other [employer] Other 01-17-2022 12:30-0500 Body weight 68.04 kg Tessie Walker Other [employer] Other 01-17-2022 12:30-0500 Diastolic blood pressure 52 mm[Hg] Tessie Walker Other [employer] Other 01-17-2022 12:30-0500 SaO2% (BldA) [Mass fraction] 89 % Tessie Walker Other [employer] Other 01-17-2022 12:30-0500 Systolic blood pressure 110 mm[Hg] Tessie Walker Other [employer] Other 12-20-2021 10:00-0500 Body height 163.19 cm Maxime Bhatti Other [employer] Other 12-20-2021 10:00-0500 Body mass index (BMI) [Ratio] 28.44 kg/m2 Maxime Bhatti Other [employer] Other 12-20-2021 10:00-0500 Body temperature 98.2 [degF] Maxime Bhatti Other [employer] Other 12-20-2021 10:00-0500 Body weight 75.75 kg Maxime Bhatti Other [employer] Other 12-20-2021 10:00-0500 Diastolic blood pressure 40 mm[Hg] Maxime Bhatti Other [employer] Other 12-20-2021 10:00-0500 SaO2% (BldA) [Mass fraction] 96 % Maxime Bhatti Other [employer] Other 12-20-2021 10:00-0500 Systolic blood pressure 110 mm[Hg] Maxime Bhatti Other [employer] Other 12-12-2021 10:20-0400 Diastolic blood pressure 46 mm[Hg] II Lily Aldrich Work Phone: [facility] 12-12-2021 10:20-0400 Heart rate 58 /min II Lily Aldrich Work Phone: [facility] 12-12-2021 10:20-0400 Inhaled oxygen flow rate 3 L/min II Lily Aldrich Work Phone: [facility] 12-12-2021 10:20-0400 Systolic blood pressure 105 mm[Hg] II Lily Aldrich Work Phone: [facility] 12-10-2021 10:23-0400 Body temperature 98.2 [degF] II Lily Aldrich Work Phone: [facility] 12-10-2021 10:23-0400 Respiratory rate 20 /min II Lily Aldrich Work Phone: [facility] 12-10-2021 10:23-0400 SaO2% (BldA) [Mass fraction] 99 % II Lily Aldrich Work Phone: [facility] 11-28-2021 12:20-0400 Body height 163.19 cm Iglesiatoya Toñaluda Other [facility] [employer] Other 11-28-2021 12:20-0400 Body temperature 96.4 [degF] Aztoya Indigoarn[employer]os Other [employer] [facility] [employer] Other 11-28-2021 12:20-0400 Diastolic blood pressure 56 mm[Hg] Aztoya Dings Other [employer] Other 11-28-2021 12:20-0400 Respiratory rate 18 /min Aztoya Bakarnulfos Other [employer] Other 11-28-2021 12:20-0400 SaO2% (BldA) [Mass fraction] 94 % Geronimo Fofana Other [facility] Other 11-28-2021 12:20-0400 Systolic blood pressure 114 mm[Hg] Geronimo Fofana Other [facility] Other 11-20-2021 12:45-0400 Heart rate 57 /min II Lily Aldrich Work Phone: [facility] 11-20-2021 12:45-0400 Respiratory rate 20 /min II Lily Aldrich Work Phone: [facility] 11-20-2021 11:28-0400 Body temperature 98.2 [degF] II Lily Aldrich Work Phone: [facility] 11-20-2021 11:28-0400 Diastolic blood pressure 45 mm[Hg] II Lily Aldrich Work Phone: [facility] 11-20-2021 11:28-0400 SaO2% (BldA) [Mass fraction] 94 % II Lily Aldrich Work Phone: [facility] 11-20-2021 11:28-0400 Systolic blood pressure 122 mm[Hg] II Lily Aldrich Work Phone: [facility] 11-20-2021 09:25-0400 Inhaled oxygen flow rate 1 L/min II Lily Aldrich Work Phone: [facility] 11-20-2021 06:00-0400 Body weight 71.8 kg II Lily Aldrich Work Phone: [facility] 11-18-2021 13:14-0400 Body height 162.56 cm II Lily Aldrich Work Phone: [facility] 11-17-2021 07:40-0400 Inhaled oxygen concentration 2 % II Lily Aldrich Work Phone: [facility] 09-20-2021 11:30-0400 Body height 163.19 cm Tessie Walker Other [employer] Other 09-20-2021 11:30-0400 Body mass index (BMI) [Ratio] 28.44 kg/m2 Tessie Walker Other [employer] Other 09-20-2021 11:30-0400 Body temperature 97.7 [degF] Tessie Walker Other [employer] Other 09-20-2021 11:30-0400 Body weight 75.75 kg Tessie Walker Other [employer] Other 09-20-2021 11:30-0400 Diastolic blood pressure 40 mm[Hg] Tessie Walker Other [employer] Other 09-20-2021 11:30-0400 SaO2% (BldA) [Mass fraction] 90 % Tessie Walker Other [employer] Other 09-20-2021 11:30-0400 Systolic blood pressure 120 mm[Hg] Tessie Walker Other [employer] Other 07-25-2021 12:40-0400 Body height 163.19 cm Geronimo Youboox Other [employer] Other 07-25-2021 12:40-0400 Body mass index (BMI) [Ratio] 28.58 kg/m2 Geronimo [employer] Other [employer] Other 07-25-2021 12:40-0400 Body temperature 96.1 [degF] Webydo[employer]toya [employer] Other [employer] Other 07-25-2021 12:40-0400 Body weight 76.11 kg Geronimo Dings Other [employer] Other 07-25-2021 12:40-0400 Diastolic blood pressure 53 mm[Hg] Aztoya Dings Other [employer] Other 07-25-2021 12:40-0400 Respiratory rate 16 /min Geronimo Dings Other [employer] Other 07-25-2021 12:40-0400 SaO2% (BldA) [Mass fraction] 93 % Geronimo Dings Other [employer] Other 07-25-2021 12:40-0400 Systolic blood pressure 124 mm[Hg] Geronimo Dings Other [employer] Other 06-21-2021 12:30-0400 Body height 163.19 cm Tessie Montesmarion Other [employer] Other 06-21-2021 12:30-0400 Body mass index (BMI) [Ratio] 27.25 kg/m2 Tessie Rutmarion Other [employer] Other 06-21-2021 12:30-0400 Body weight 72.58 kg Tessie Montesmarion Other [employer] Other 06-21-2021 12:30-0400 Diastolic blood pressure 64 mm[Hg] Tessie Denise Other [employer] Other 06-21-2021 12:30-0400 Respiratory rate 16 /min Tessie Denise Other [employer] Other 06-21-2021 12:30-0400 SaO2% (BldA) [Mass fraction] 97 % Tessie Walker Other [employer] Other 06-21-2021 12:30-0400 Systolic blood pressure 150 mm[Hg] Tessie Walker Other [employer] Other 05-16-2021 15:20-0400 Body height 163.19 cm Aztoya [employer] Other [employer] Other 05-16-2021 15:20-0400 Body mass index (BMI) [Ratio] 27.76 kg/m2 Aztoya [employer] Other [employer] Other 05-16-2021 15:20-0400 Body temperature 97.7 [degF] Aztoya [employer] Other [employer] Other 05-16-2021 15:20-0400 Body weight 73.94 kg Aziz Bakhous Other [employer] Other 05-16-2021 15:20-0400 Diastolic blood pressure 64 mm[Hg] Aziz Bakhous Other [employer] Other 05-16-2021 15:20-0400 Respiratory rate 18 /min Aziz Bakhous Other [employer] Other 05-16-2021 15:20-0400 SaO2% (BldA) [Mass fraction] 96 % Aziz Bakhous Other [employer] Other 05-16-2021 15:20-0400 Systolic blood pressure 159 mm[Hg] Geronimo Fofana Other [employer] Other 01-02-2021 17:20-0500 Body height 163.19 cm Narinder Toussaint Other [employer] Other 01-02-2021 17:20-0500 Body mass index (BMI) [Ratio] 30.96 kg/m2 Narinder Toussaint Other [employer] Other 01-02-2021 17:20-0500 Body temperature 97.8 [degF] Narinder Toussaint Other [employer] Other 01-02-2021 17:20-0500 Body weight 82.46 kg Narinder Toussaint Other [employer] Other 01-02-2021 17:20-0500 Diastolic blood pressure 62 mm[Hg] Narinder Toussaint Other [employer] Other 01-02-2021 17:20-0500 Respiratory rate 18 /min Narinder Toussaint Other [employer] Other 01-02-2021 17:20-0500 SaO2% (BldA) [Mass fraction] 94 % Narinder Toussaint Other [employer] Other 01-02-2021 17:20-0500 Systolic blood pressure 145 mm[Hg] Narinder Toussaint Other [employer] Other 04-17-2020 13:29-0500 BP Diastolic 54 mm[Hg] [facility] 04-17-2020 13:29-0500 BP Systolic 116 mm[Hg] [facility] 04-17-2020 12:59-0500 Pulse (Heart Rate) 61 /min Lily Aldrich [facility] 04-17-2020 12:21-0500 Body Temperature 98.8 [degF] Lily Aldrich [facility] 04-17-2020 12:21-0500 Respiratory Rate 14 /min Lily Aldrich [facility] Encounters Encounter Date Encounter Type Care Provider Facility Start: 04-16-2023 End: 04-16-2023 Emergency department patient visit Azar Palmer Jr Facility:[facility] Start: 04-08-2023 End: 04-08-2023 Lab Drop off Julius Mayers - [facility] Start: 04-02-2023 Non-patient / Non-visit II Giuliano Aldrich Work Phone: [facility] Work Phone: Start: 04-02-2023 Non-patient / Non-visit II Giuliano Aldrich Work Phone: [facility] Work Phone: Start: 04-02-2023 End: 04-05-2023 Evaluation and management of inpatient Lily Aldrich Facility:[facility] Start: 04-01-2023 End: 04-05-2023 Evaluation and management of inpatient II Lily Aldrich Work Phone: [facility] [place] [facility] Work Phone: Start: 04-01-2023 Non-patient / Non-visit II Giuliano Aldrich Work Phone: [facility] Work Phone: Start: 04-01-2023 Evaluation and management of inpatient II Lily Aldrich Work Phone: [facility] [place] [facility] Work Phone: Start: 04-01-2023 observation encounter II Florentin Aldrich Work Phone: [facility] Work Phone: Start: 04-01-2023 End: 04-01-2023 ambulatory [facility] Start: 03-25-2023 End: 03-26-2023 ambulatory Julius Elizondo Facility:[facility] Start: 03-25-2023 End: 03-25-2023 Patient encounter procedure Julius Elizondo [facility] Start: 03-18-2023 End: 03-19-2023 ambulatory Julius Elizondo Facility:[facility] Start: 03-05-2023 End: 03-07-2023 ambulatory Essam Elashi Facility:[facility] Start: 03-05-2023 Evaluation and management of inpatient II Lily Aldrich Work Phone: [facility] [place] [facility] Work Phone: Start: 03-05-2023 Non-patient / Non-visit II Giuliano Aldrich Work Phone: [facility] Work Phone: Start: 03-05-2023 observation encounter II Florentin Aldrich Work Phone: [facility] Work Phone: Start: 03-04-2023 End: 03-05-2023 ambulatory Julius Elizondo Facility:[facility] Start: 03-04-2023 End: 03-04-2023 Patient encounter procedure Julius Elizondo [facility] Start: 02-25-2023 End: 02-26-2023 ambulatory Stephan Elizondo Facility:[facility] Start: 02-25-2023 End: 02-25-2023 Patient encounter procedure Julius Elizondo [facility] Start: 02-25-2023 End: 02-25-2023 ambulatory [facility] Start: 02-20-2023 End: 02-20-2023 ambulatory LILY ALDRICH Not Available Start: 02-20-2023 End: 02-20-2023 ambulatory STEPHAN R DOLCE Not Available Start: 02-17-2023 ambulatory ANGELICA DES [facility] Start: 02-17-2023 End: 02-17-2023 ambulatory Wood Lucas Facility:[facility] Start: 02-17-2023 End: 02-17-2023 ambulatory PETER Aldrich Work Phone: [facility] Work Phone: Start: 02-17-2023 End: 02-17-2023 Departed Referred II Lily Aldrich Work Phone: [facility] Work Phone: Start: 02-06-2023 End: 02-06-2023 ambulatory STEPHAN R DOLCE Not Available Start: 01-31-2023 Evaluation and management of inpatient [facility] Start: 01-31-2023 End: 01-31-2023 Evaluation and management of inpatient [facility] Start: 01-30-2023 Evaluation and management of inpatient NEISHA Jesusita AVILA [facility] Start: 01-29-2023 Emergency department patient visit ANALILIA LUKE [facility] Start: 01-29-2023 End: 02-01-2023 Evaluation and management of inpatient [facility] Start: 01-16-2023 End: 01-16-2023 ambulatory STEPHAN R DOLCE Not Available Start: 01-13-2023 End: 01-13-2023 ambulatory LILY ALDRICH Not Available Start: 01-06-2023 End: 01-06-20[facility] Start: 12-30-2022 End: 01-02-2023 Evaluation and management of inpatient Lily Aldrich Facility:[facility] Start: 12-30-2022 End: 01-02-2023 Evaluation and management of inpatient II Lily Aldrich Work Phone: [facility] [place] [facility] Work Phone: Start: 12-26-2022 End: 12-26-2022 ambulatory EHAB [facility] Start: 12-26-2022 End: 12-26-2022 ambulatory DIANNA ROJAS Not Available Start: 12-24-2022 End: 12-25-2022 ambulatory Stephan Elizondo Facility:[facility] Start: 12-24-2022 End: 12-24-2022 Patient encounter procedure Stephan Elizondo [facility] Start: 12-13-2022 End: 12-16-2022 Evaluation and management of inpatient Moo Villanueva Facility:[facility] Start: 12-13-2022 End: 12-13-2022 ambulatory UNKNOWN PROVIDER Facility:[facility] Start: 12-13-2022 End: 12-16-2022 Evaluation and management of inpatient II Lily Aldrich Work Phone: [facility] [place] [facility] Work Phone: Start: 12-09-2022 End: 12-09-2022 ambulatory Edie Anand Facility:[facility] Start: 12-09-2022 End: 12-09-2022 ambulatory II Lily Aldrich Work Phone: [facility] Work Phone: Start: 12-09-2022 End: 12-09-2022 Patient encounter procedure II Lily Aldrich Work Phone: [facility]Electrodiagnostics Work Phone: Start: 12-08-2022 End: 12-09-2022 Evaluation and management of inpatient Edie Anand Facility:[facility] Start: 12-08-2022 End: 12-09-2022 Evaluation and management of inpatient II Lily Aldrich Work Phone: [facility] Work Phone: Start: 12-06-2022 Evaluation and management of inpatient II Lily Aldrich Work Phone: [facility] Work Phone: Start: 12-06-2022 observation encounter II Florentin Aldrich Work Phone: [facility] Work Phone: Start: 10-30-2022 End: 10-31-2022 Evaluation and management of inpatient Carlton Mtz Facility:[facility] Start: 10-30-2022 End: 10-31-2022 Evaluation and management of inpatient II Lily Aldrich Work Phone: [facility] [place] [facility] Work Phone: Start: 10-29-2022 Evaluation and management of inpatient II Lily Aldrich Work Phone: [facility] [place] [facility] Work Phone: Start: 10-29-2022 observation encounter II Florentin Aldrich Work Phone: [facility] Work Phone: Start: 10-04-2022 End: 10-04-2022 ambulatory [facility] Start: 09-09-2022 End: 09-09-2022 ambulatory [facility] Start: 08-06-2022 End: 08-06-2022 ambulatory [facility] Start: 05-31-2022 End: 06-01-[address] LILY ALDRICH Facility: Start: 05-17-2022 End: 05-20-2022 Evaluation and management of inpatient Teresa Pagan Facility:[facility] Start: 05-17-2022 End: 05-20-2022 Evaluation and management of inpatient II Lily Aldrich Work Phone: [facility] [place] [facility] Work Phone: Start: 05-02-2022 End: 05-02-2022 ambulatory Lily Aldrich Facility:[facility] Start: 05-02-2022 End: 05-02-2022 Admission to same day surgery center II Lily Aldrich Work Phone: [facility]Interventional Radiology Work Phone: Start: 05-02-2022 End: 05-02-2022 ambulatory II Lily Nasima Work Phone: [facility] Work Phone: Start: 04-18-2022 Office outpatient vi sit 15 minutes Maxime Bhatti [facility] Vascular Surgery Start: 04-18-2022 End: 04-18-2022 ambulatory Lily Aldrich Facility:[facility] Start: 04-18-2022 End: 04-18-2022 ambulatory II Lily Aldrich Work Phone: [facility] Work Phone: Start: 04-18-2022 End: 04-18-2022 Patient encounter procedure II Lily Nasima Work Phone: [facility] Start: 04-12-2022 End: 04-12-2022 ambulatory Maxime Bhatti Other [employer] Other Start: 04-12-2022 Telephone encounter Maxime [facility] V[facility] Surgery Start: 04-04-2022 End: 04-05-[address] LILY ALDRICH Facility:[facility] Start: 02-23-[address] Lily Aldrich II Facility:[id number] Start: 02-22-2022 End: 02-27-2022 Evaluation and management of inpatient II Lily Aldrich Work Phone: [facility] [facility] Work Phone: Start: 02-18-2022 End: 02-18-[address] LILY ALDRICH Facility:[facility]1 Start: 02-14-2022 End: 02-15-[address] LILY ALDRICH Facility:[facility]1 Start: 02-08-2022 (INJECTION) INJECTION Aztoya Fofana [facility] Start: 02-08-2022 End: 02-08-2022 ambulatory Geronimo Fofana Other [employer] Other Start: 01-31-2022 End: 01-31-2022 ambulatory Geronimo Dings Other [employer] Other Start: 01-31-2022 Telephone encounter Geronimo Fofana [facility] Start: 01-30-2022 Telephone encounter Geronimo Fofana [facility] Start: 01-30-2022 End: 01-30-2022 ambulatory II Lily Aldrich Work Phone: [facility] Work Phone: Start: 01-30-2022 End: 01-30-2022 Patient encounter procedure II Lily Aldrich Work Phone: [facility]-Lab Main [place] Start: 01-17-2022 End: 01-17-2022 ambulatory Tessie Walker Other [employer] Other Start: 01-17-2022 Follow-up encounter Tessie White [facility] Start: 01-17-2022 End: 01-17-2022 Patient encounter procedure II Lily Aldrich Work Phone: [facility] Start: 01-14-2022 End: 01-15-[address] LILY ALDRICH Facility:[facility]1 Start: 12-20-2021 End: 12-20-2021 ambulatory Maxime Bhatti Other [employer] Other Start: 12-20-2021 Office outpatient vi sit 15 minutes Maxime Bhatti [facility] Vascular Surgery Start: 12-12-2021 End: 12-12-2021 ambulatory II Lilystephanie Aldrich Work Phone: [facility] Work Phone: Start: 12-12-2021 End: 12-12-2021 Discharged Recurring II Lilystephanie Aldrich Work Phone: [facility]-Infusion Therapy - O/P Start: 11-28-2021 End: 11-28-2021 ambulatory Geronimo Soodhous Other [employer] Other Start: 11-28-2021 Office outpatient vi sit 25 minutes Aziz Bakhous [facility] Start: 11-22-2021 End: 11-23-[address] LILY ALDRICH Facility:[facility]1 Start: 11-16-[address] Lily Aldrich II Facility:[facility] Start: 11-16-[address] Lily Aldrich II Facility:[facility] Start: 11-16-2021 End: 11-20-2021 Evaluation and management of inpatient PETER Aldrich Work Phone: [facility] Start: 11-16-2021 End: 11-16-[address] LILY ALDRICH Facility:[facility]1 Start: 11-04-2021 End: 11-12-2021 Evaluation and management of inpatient DR JULIUS LINDA Facility:[facility]1 Start: 10-19-2021 End: 10-21-2021 Evaluation and management of inpatient DR LILY ALDRICH Facility:[facility]1 Start: 09-20-2021 End: 09-20-2021 ambulatory Tessie Walker Other [place] [employer] Other Start: 09-20-2021 Follow-up encounter Tessie White [facility] Start: 09-20-2021 End: 09-20-2021 Patient encounter procedure II Lily Aldrich Work Phone: [facility] Start: 08-29-2021 End: 09-02-2021 Evaluation and management of inpatient DR LILY ALDRICH Facility:[facility]1 Start: 07-25-2021 End: 07-25-2021 ambulatory Aziz Bakhous Other [employer] Other Start: 07-25-2021 Office outpatient vi sit 25 minutes Aziz Bakhous [facility] Start: 07-12-2021 End: 07-12-[address] LILY ALDRICH Facility:[facility]1 Start: 07-11-2021 End: 07-12-[address] LILY ALDRICH Facility:[facility]1 Start: 06-25-2021 End: 06-25-2021 ambulatory Maxime Bhatti Other [employer] Other Start: 06-25-2021 Encounter for other preprocedural examination Maxime Liluís [facility] Vascular Surgery Start: 06-25-2021 Telephone encounter Maxime Kellie [facility] Vascular Surgery Start: 06-21-2021 End: 06-21-2021 ambulatory Tessie Walker Other [employer] Other Start: 06-21-2021 FQ visit new patient Tessie aquino [facility] Vascular Surgery Start: 05-16-2021 End: 05-16-2021 ambulatory Aziz Bakhous Other [employer] Other Start: 05-16-2021 Office outpatient vi sit 25 minutes Aziz Bakhous [facility] Nephrology Start: 01-02-2021 End: 01-02-2021 ambulatory Essam Elashi Other [employer] Other Start: 01-02-2021 Office outpatient vi sit 25 minutes Essam Elashi [facility] Nephrology Start: 05-16-2020 End: 05-16-2020 Patient encounter procedure Lily Aldrich -Pre-Surgical Testing Start: 04-17-2020 End: 04-17-2020 Discharged Recurring Lily Nasima -Infusion Therapy - O/P Start: 03-27-2020 End: 03-27-2020 Patient encounter procedure Lily Aldrich -Lab Main [place] Start: 10-08-2019 End: 10-14-2019 Evaluation and management of inpatient [facility] Facility:[facility] Procedures Date Procedure Procedure Detail Performing Clinician Start: 04-04-2023 MRI of head II Lily Nasima Work Phone: Start: 04-03-2023 Doppler ultrasonogra phy of bilateral carotid arteries II Lily Aldrich Work Phone: Start: 04-01-2023 CT angiography of head II Lily Aldrich Work Phone: Start: 04-01-2023 CT angiography of ne ck vessels II Lily Aldrich Work Phone: Start: 04-01-2023 CT of head without contrast II Lily Aldrich Work Phone: Start: 04-01-2023 SARS-CoV-2, Influenz a & RSV (PCR) II Lily Aldrich Work Phone: Start: 04-01-2023 Plain chest X-ray II Steven Aldrich Work Phone: Start: 03-05-2023 CT of head without contrast II Lliy Aldrich Work Phone: Start: 03-05-2023 Plain chest X-ray II Steven Aldrich Work Phone: Start: 12-30-2022 Respiratory Panel (PCR) II Lily Aldrich Work Phone: Start: 12-30-2022 Screening for occult blood in feces II Lily Aldrich Work Phone: Start: 12-30-2022 Antibody screen Edie reid Comment on above: Result Comment: PERF ORMED BY:[facility] [place], [place] [id number] MEDICAL DIRECTORRAMEZ LAROSN M.D. Start: 12-30-2022 Ultrasonography of liver II [...] Aldrich Work Phone: Start: 05-17-2022 Antibody screen Edie reid Comment on above: Order Comment: Trans fuse now? Y Number of units to transfuse now? 1 Result Comment: PERF ORMED BY:[facility] [place], [place] [id number] MEDICAL DIRECTORRAMEZ LARSON M.D. Start: 05-17-2022 Computed [...] on above: Performed By: #### T SCR ####[facility] [place], [place] [id number] Start: 03-27-2020 End: 03-27-2020 Aerobic microbial culture Lily Nasima Start: 03-27-2020 End: 03-27-2020 Anaerobic microbial culture Lily Aldrich Start: 03-27-2020 Investigation of tra nsfusion reaction Lily Aldrcih Start: 10-13-2019 MEASURE OF CARDIAC S AMPL \T\ PRESSURE, R HEART, PERC APPROACH [facility] [place] Start: 10-13-2019 MEASUREMENT OF ARTER IAL FLOW, PULMONARY, PERC APPROACH [facility] [place] Acid fast bacilli culture II Lily Aldrich Work Phone: Acid fast bacilli culture II Lily Aldrich Work Phone: Acid fast stain method II Steven Aldrich Work Phone: Aerobic microbial culture II Lily Aldrich Work Phone: Anaerobic microbial culture II Lily Aldrich Work Phone: Investigation of tra nsfusion reaction II Lily Aldrich Work Phone: Mycology culture II Lily walker Work Phone: Plan of Treatment Date Care Activity Detail Author Start: 04-05-2023 [facility] Start: 04-02-2023 [facility] Start: 04-01-2023 Referral to neurologist [facility] Start: 04-01-2023 Referral to vascular surgeon [facility] Start: 04-01-2023 Hospital admission [facility] Start: 04-01-2023 Referral to qa tester [facility] Start: 04-01-2023 [facility] Start: 04-01-2023 CT angiography of head [facility] Start: 04-01-2023 CT angiography of neck vessels [facility] Start: 03-07-2023 [facility] Start: 03-06-2023 Comprehensive metabolic 2000 panel - Serum or Plasma [facility] Start: 03-06-2023 [facility] Start: 03-05-2023 Physical therapy procedure [facility] Start: 03-05-2023 Referral to occupational therapist [facility] Start: 03-05-2023 End: 03-05-2023 [facility] Start: 03-05-2023 Referral to qa tester [facility] Start: 03-05-2023 Referral to neurologist [facility] Start: 03-05-2023 Referral to incinerator plant supervisor [facility] Start: 03-05-2023 Hospital admission [facility] Start: 03-05-2023 [facility] Start: 03-05-2023 Bacteria identified in Blood by Culture [facility] Start: 01-02-2023 [facility] Start: 12-30-2022 Administration of prophylactic treatment [facility] Start: 12-30-2022 Referral to incinerator plant supervisor [facility] Start: 12-30-2022 Hospital admission [facility] Start: 12-30-2022 Referral to qa tester [facility] Start: 12-29-2022 Plain chest X-ray XR chest 1V portable [facility] Start: 12-29-2022 XR Chest Single view [facility] Start: 12-29-2022 [facility] Start: 12-29-2022 Bacteria identified in Blood by Culture Blood Culture [facility] Start: 12-29-2022 Blood culture for bacteria, including anaerobic screen Blood Culture [facility] Start: 12-16-2022 [facility] Start: 12-13-2022 Referral to qa tester [facility] Start: 12-13-2022 Hospital admission [facility] Start: 12-13-2022 Referral to incinerator plant supervisor [facility] Start: 12-13-2022 Performance of Urinary Filtration, Intermittent, Less than 6 Hours Per Day Performance of Urinary Filtration, Intermittent, Less than 6 Hours Per Day [facility] Start: 12-09-2022 [facility] Start: 12-07-2022 Hospital admission [facility] Start: 12-07-2022 Referral to incinerator plant supervisor [facility] Start: 12-07-2022 Referral to qa tester [facility] Start: 10-31-2022 [facility] Start: 10-30-2022 Performance of Urinary Filtration, Intermittent, Less than 6 Hours Per Day Performance of Urinary Filtration, Intermittent, Less than 6 Hours Per Day [facility] Start: 10-30-2022 Referral to incinerator plant supervisor [facility] Start: 10-30-2022 Blood chemistry [facility] Start: 10-30-2022 [facility] Start: 10-30-2022 Referral to incinerator plant supervisor [facility] Start: 10-29-2022 End: 10-30-2022 [facility] Start: 10-29-2022 Physical therapy procedure [facility] Start: 10-29-2022 Referral to qa tester [facility] Start: 10-29-2022 Referral to occupational therapist [facility] Start: 10-29-2022 Referral to Equipment Operating Engineer [facility] Start: 10-29-2022 Hospital admission [facility] Start: 10-29-2022 Plain chest X-ray XR chest 1V portable [facility] Start: 10-29-2022 XR Chest Single view [facility] Start: 10-29-2022 Plain X-ray of left shoulder XR shoulder LT min 2V* [facility] Start: 10-29-2022 XR Shoulder - left Views [facility] Start: 05-20-2022 [facility] Start: 05-20-2022 Physical therapy procedure [facility] Start: 05-20-2022 Referral to occupational therapist [facility] Start: 05-19-2022 [facility] Start: 05-17-2022 Referral to drupal architect [facility] Start: 05-17-2022 Hospital admission [facility] Start: 05-17-2022 Referral to qa tester [facility] Start: 05-02-2022 End: 05-02-2022 [facility] Start: 2022 Blood chemistry [facility] Start: 02-25-2022 [facility] Start: 02-23-2022 Blood chemistry [facility] Start: 02-23-2022 [facility] Start: 02-22-2022 Physical therapy procedure [facility] Start: 02-22-2022 Referral to qa tester [facility] Start: 02-22-2022 Referral to occupational therapist [facility] Start: 02-22-2022 Hospital admission [facility] Start: 02-22-2022 [facility] Start: 02-22-2022 Bacteria identified in Blood by Culture [facility] Start: 02-22-2022 Bacteria identified in Urine by Culture Urine Culture [facility] Start: 02-22-2022 Blood culture for bacteria, including anaerobic screen Blood Culture [facility] Start: 02-22-2022 Performance of Urinary Filtration, Intermittent, Less than 6 Hours Per Day Performance of Urinary Filtration, Intermittent, Less than 6 Hours Per Day [facility] Start: 11-26-2021 Blood chemistry [facility] Start: 11-26-2021 [facility] Start: 11-25-2021 Blood chemistry [facility] Start: 11-25-2021 [facility] Start: 11-24-2021 Blood chemistry [facility] Start: 11-24-2021 [facility] Start: 11-23-2021 Blood chemistry [facility] Start: 11-23-2021 [facility] Start: 11-22-2021 Blood chemistry [facility] Start: 11-22-2021 [facility] Start: 11-21-2021 Blood chemistry [facility] Start: 11-21-2021 [facility] Start: 11-20-2021 [facility] Start: 11-20-2021 Referral to home health care service [facility] Start: 11-19-2021 Consultation [facility] Start: 11-18-2021 Administration of prophylactic treatment [facility] Start: 11-17-2021 Referral to vascular surgeon [facility] Start: 11-16-2021 [facility] Start: 11-16-2021 Dilation of Left Cephalic Vein, Percutaneous Approach Dilation of Left Cephalic Vein, Percutaneous Approach [facility] Start: 11-16-2021 Drainage of Right Pleural Cavity, Percutaneous Approach Drainage of Right Pleural Cavity, Percutaneous Approach [facility] Start: 11-16-2021 Performance of Urinary Filtration, Intermittent, Less than 6 Hours Per Day Performance of Urinary Filtration, Intermittent, Less than 6 Hours Per Day [facility] Start: 11-16-2021 Restriction of Left Cephalic Vein with Intraluminal Device, Percutaneous Approach Restriction of Left Cephalic Vein with Intraluminal Device, Percutaneous Approach [facility] Start: 11-16-2021 Hospital admission [facility] Start: 11-16-2021 [facility] Start: 11-16-2021 Referral to qa tester [facility] Albumin/Globulin ratio [facility] Anion gap measurement [facility] Basophils [#/volume] in Blood by Automated count [facility] Basophils/100 leukoc ytes in Blood by Automated count [facility] Blood chemistry [facility] Eosinophils [#/volum e] in Blood [facility] Eosinophils/100 leuk ocytes in Blood by Automated count [facility] Erythrocyte distribu tion width [Ratio] by Automated count [facility] Erythrocytes [#/volu me] in Blood [facility] Fungus identified in Unspecified specimen by Culture [facility] Work Phone: Globulin [Mass/volum e] in Serum [facility] Hematocrit [Volume F raction] of Blood [facility] Hemoglobin [Mass/vol ume] in Blood [facility] Leukocytes [#/volume ] corrected for nucleated erythrocytes in Blood by Automated coun [facility] Leukocytes [#/volume ] in Blood [facility] Lymphocytes [#/volum e] in Blood by Automated count [facility] Lymphocytes/100 leuk ocytes in Blood by Automated count [facility] MCH [Entitic mass] b y Automated count [facility] MCHC [Mass/volume] b y Automated count [facility] MCV [Entitic volume] by Automated count [facility] Monocytes [#/volume] in Blood by Automated count [facility] Monocytes/100 leukoc ytes in Blood by Automated count [facility] Mycobacterium sp cailin ntified in Unspecified specimen by Organism specific culture [facility] Work Phone: Neutrophils [#/volum e] in Blood by Automated count [facility] Neutrophils/100 leuk ocytes in Blood by Automated count [facility] Nucleated erythrocyt es [Presence] in Blood by Automated count [facility] Patient Education [facility] Work Phone: Patient referral [facility] Work Phone: Platelet mean volume [Entitic volume] in Blood by Automated count [facility] Platelets [#/volume] in Blood [facility] Immunizations Immunization Date Immunization Notes Care Provider Crow nichols 05-16-2020 COVID-19 mRNA,QCP666 b2 (Pfizer) Lily Aldrich [facility] 04-24-2020 COVID-19 mRNA,LMV074 b2 (Pfizer) Lily [facility] Payers Date Payer Category Payer Self-pay [id number] 2021 Private Health Insurance [id number] 1957 Medicare [id number] 1957 Unknown [id number] 1945 Unknown [id number] 2.16.8 40.1.062925.3.579.2.647 1945 Unknown [id number] 2.16.84 0.1.388675.3.579.2.593 1945 Unknown [id number] 2.16.84 0.1.728342.3.579.2.593 1947 Unknown [id number] 2.16.84 0.1.536933.3.579.2.593 1947 Unknown [id number] 2.16.84 0.1.067646.3.579.2.593 1947 Unknown [id number] 2.16.84 0.1.406398.3.579.2.593 1947 Unknown [id number] 2.16.84 0.1.022217.3.579.2.593 1947 Unknown [id number] 2.16.84 0.1.379077.3.579.2.593 1947 Unknown [id number] 2.16.84 0.1.130031.3.579.2.593 1947 Unknown [id number] 2.16.84 0.1.149420.3.579.2.593 1947 Unknown [id number] 2.16.84 0.1.479624.3.579.2.593 1947 Unknown [id number] 2.16.84 0.1.733410.3.579.2.593 1947 Unknown [id number] 2.16.84 0.1.366976.3.579.2.593 1947 Unknown [id number] 2.16.84 0.1.593659.3.579.2.593 1947 Unknown [id number] 2.16. 840.1.913790.3.579.2.356 1947 Unknown [id number] 2.16. 840.1.158333.3.579.2.356 1947 Unknown [id number] 2.16. 840.1.091859.3.579.2.732 1947 Unknown [id number] 2.16.84 0.1.157932.3.579.2.1259 1947 Unknown [id number] 2.16.84 0.1.061266.3.579.2.1259 1947 Unknown [id number] 2.16.840 .1.986874.3.579.2.1259 1947 Unknown [id number] 2.16.840 .1.045638.3.579.2.1259 1947 Unknown [id number] 2.16.840 .1.241765.3.579.2.1259 1947 Unknown [id number] 2.16.840 .1.914254.3.579.2.1259 1947 Unknown [id number] 2.16.8 40.1.840687.3.579.2.727 1947 Unknown [id number] 2.16.8 40.1.935053.3.579.2.727 1947 Unknown [id number] 2.16.8 40.1.924581.3.579.2.727 1947 Unknown [id number] 2.16.8 40.1.887356.3.579.2.727 1945 Unknown [id number] 2.16.8 40.1.997751.3.579.2.727 Medicare [id number] 2.1 6.840.1.165789.19 Unknown [id number] Unknown [id number] 2.16.8 40.1.162737.3.579.2.531 Unknown [id number] 2.16.8 40.1.927599.3.579.2.531 Unknown [id number] 2.16.8 40.1.986980.3.579.2.531 Unknown [id number] 2.16.8 40.1.475013.3.579.2.531 Unknown [id number] 2.16.8 40.1.054956.3.579.2.531 Unknown [id number] 2.16.8 40.1.034766.3.579.2.531 Unknown [id number] 2.16.8 40.1.779271.3.579.2.531 Unknown [id number] 2.16.8 40.1.244278.3.579.2.531 Unknown [id number] 2.16.8 40.1.300328.3.579.2.531 Unknown [id number] 2.16.8 40.1.324170.3.579.2.531 Unknown [id number] 2.16.8 40.1.455296.3.579.2.531 Unknown [id number] 2.16.8 40.1.159555.3.579.2.531 Social History Date Type Detail Facility Start: 05-16-2020 End: 04-03-2023 Tobacco smoking status NHIS Never smoked tobacco (finding) [facility] Start: 1945 Sex Assigned At Female [facility] Sex Assigned At [facility] Tobacco smoking status No Smokin g Status Entered [facility] Medical Equipment Procedure Code Equipment Code Equipment Origin al Text Equipment Identifier Dates Insertion, catheter, dialysis, peritoneal, laparoscopic [id number] FDA Start: 11-25-2019 Fistulogram Non-neurovascula r embolization plug, metallic [id number] FDA Start: 11-19-2021 Pen Needle, Diab etic [...] /State Functional Status Date Assessment Result Facility 04-05-2023 Functional status Patient at Baseline [facility] Work Phone: 04-02-2023 Functional status Patient Not at Baseline [facility] Work Phone: 01-02-2023 Functional status Patient at Baseline [facility] Work Phone: 12-16-2022 Functional status Patient at Baseline [facility] Work Phone: 12-09-2022 Functional status Patient at Baseline [facility] Work Phone: 10-31-2022 Functional status Patient at Baseline [facility] Work Phone: 10-30-2022 Functional status Patient Not at Baseline [facility] Work Phone: 05-20-2022 Functional status Patient at Baseline [facility] Work Phone: 02-27-2022 Functional status Patient at Baseline [facility] Work Phone: 11-20-2021 Functional status Patient is Pro gressing Toward Baseline [facility] Work Phone: Mental Status Date Assessment Result Facility 04-05-2023 Cognitive function Cognitive Sta tus Patient at [facility] Work Phone: 01-02-2023 Cognitive function Cognitive Sta tus Patient at [facility] Work Phone: 12-16-2022 Cognitive function Cognitive Sta tus Patient at [facility] Work Phone: 12-09-2022 Cognitive function Cognitive Sta tus Patient at [facility] Work Phone: 10-31-2022 Cognitive function Cognitive Sta tus Patient at [facility] Work Phone: 10-30-2022 Cognitive function Cognitive Sta tus Patient at [facility] Work Phone: 05-20-2022 Cognitive function Cognitive Sta tus Patient at [facility] Work Phone: 02-27-2022 Cognitive function Cognitive Sta tus Patient at [facility] Work Phone: 11-20-2021 Cognitive function Cognitive Sta tus Patient at [facility] Work Phone: Clinical Notes 09-01-2020 to 04-08-2023 Note Date & Type Note Facility 04-08-2023 Evaluation + Plan note Diagnostic Tests PendingWound Culture 04/08/23 [facility] 04-05-2023 Discharge summary Note Date/Time April 05, 2023 3:03pm [facility] [address] [place] [address] Discharge Summary Signed Patient: Cinthya Wilson MR#: [id number] : 1945 Acct:[id number] Age/Sex: 78 / F Adm Date: 4 Loc: Room: [address] [place] [address]: Gary Almaguer MD Copies to: MD Gary Bourgeois II, MD~ Providers Date of Discharge: 04/05/23 Discharging Provider: Gary Almaguer Primary Care Provider: Lily Aldrich Consults: 04/01/23 20:53 Consult to Nephrology Routine Comment: Consulting Provider: Geronimo Fofana Has Provider Been Notified: Yes Date of Notification: 04/02/23 Time of Notification: 07:58 Reason for Consult: Dialysis Treatment 04/01/23 22:22 Consult to Neurology Routine Comment: Consulting Provider: Danny Mcclelland Reason For Exam: neck pain ,diplopia Has Provider Been Notified: Yes Date of Notification: 04/02/23 Time of Notification: 07:56 Consult to Vascular Surgery Routine Comment: Consulting Provider: Maxime Bhatti Reason For Exam: severe right ICA stenosis Has Provider Been Notified: Yes Date of Notification: 04/02/23 Time of Notification: 08:13 04/02/23 15:12 Consult to Occupational Therapy Routine Comment: Physician Instructions: Consult to OT for:: Evaluation and Treat Consult to Physical Therapy Routine Comment: Physician Instructions: Consult to PT for:: Evaluation and Treat Discharge Diagnosis (1) End-stage renal disease (ESRD): (2) Acute hyperkalemia: (3) Anemia: (4) Neck pain: Final Diagnosis Final Discharge Diagnosis: Severe right ICA stenosis 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 Brought to the emergency room with complaint of right-sided neck pain and she missed her hemodialysis. Patient lives with her son who mentioned she developed right-sided neck pain with tenderness and they went to [facility] ER. She was given muscle relaxant and was told to have muscle spasm and sent home. She did not feel well due to her persistent pain and did not go for her routine hemodialysis. She has been feeling weak earlier had an episode of double vision/blurriness which has resolved while here. In the emergency room chest x-ray showing cardiomegaly with mild interstitial changes and CT head without contrast did not show any acute abnormality. Her labs showing potassium 5.3, creatinine 6.3 BNP 1382. In the emergency room she received 1 dose of IV calcium and regular insulin. Also received diazepam 2.5 mg and during my examination she was resting comfortably. Patient denies fever, chills, chest pain, headache, visual changes, numbness or weakness in extremities. Noted to have tenderness on right lateral neck area atsternocleidomastoid muscle. She denies recent fall or injury to neck or head. Denies numbness or weakness in extremities as well. During hospital course, neurology and vascular surgery were consulted. Per CTA head and neck showed greater than 70% stenosis of the right ICA and around 50% stenosis on the left, carotid Doppler was done to confirm findings and does not seem to have symptomatic carotid artery stenosis per vascular and neurology evaluation. Unlikely her neck pain related to these findings. Recommendations tocontinue with conservative management at this time. No cervical dystonia presentat this time. We added Flexeril at night time which seems to help her neck pain according to her. MRI brain was done which showed remote infarcts, no acute cerebrovascular disease .. Neuro recommendations to continue with aspirin and statin. Will continue that on discharge. Nephrology was consulted as well and patient was maintained on dialysis schedule and tolerated well. Recommended to continue to follow-up with nephrology as outpatient to maintain dialysis schedule. Outpatient neurology follow-up with consideration for occipital nerveblocks. PT/OT was consulted. Patient seems interested in SNF/rehab. CM followed and patient was accepted to the [facility]. Patient is suitable for discharge at this time. Discussed with patient at bedside, all question answered, patient inagreement and comfortable with discharge plan at this time. Verbal and written instructions provided to patient upon discharge. Patient has multiple complex medical issues as listed above and others that are not listed. All appear to be stable at this time. Patient is feeling significantly better and feeling comfortable with this plan of discharge. I do not have any clear or strong clinical justification to extend inpatient hospitalization. Patient however will require close and the frequent monitoringas well as additional work-up, investigation and therapeutic intervention that could take place from this point on post discharge. That is to prevent relapse,decompensation, rehospitalization and other medical implications. Outpatient follow up as directed for continuity of care. Verbal and written discharge instructions will be provided to the patient. Condition Condition at Discharge: Stable Time Spent with Patient Time spent providing/coordinating discharge services (# min): 38 Diagnostic Studies Completed and Pending Studies Labs on day of discharge: 04/05/23 11:35: POC Glucose 183 04/05/23 06:37: PHA Creatinine Clear 12.23, Sodium 133 L, Potassium 4.4, Chloride 94 L, Carbon Dioxide 28.9, Anion Gap 14.5, BUN 25 D, Creatinine 3.38 HD, Est GFR (CKD-EPI) 13.539, Glucose 123 H, Calcium 9.4 04/05/23 06:14: POC Glucose 133 04/04/23 21:11: POC Glucose 175 04/04/23 16:47: POC Glucose 94, POC Glucose Comment Glu2: cleaned meter Exam Physical Exam Vital Signs: Temp Pulse Resp BP Pulse Ox O2 Del Method O2 Flow Rate 98.0 F 78 18 127/55 L 100 Nasal Cannula 3 04/05/23 12:00 04/05/23 12:16 04/05/23 12:16 04/05/23 12:00 04/05/23 12:00 04/05/23 12:00 04/05/23 12:00 Narrative: Const General: cooperative HEENT Normal oropharyngeal mucosa without any ulcers or exudates Neck spasm, improving Eyes: Conjunctiva normal Pulmonary Auscultation: Diminished breath sounds, no crackles, no wheezes Cardiovascular Rate: normal rate Rhythm: regular rhythm Heart Sounds: S1 normal, S2 normal and no murmurs GI Inspection: non-distended Palpation: soft, not firm and nontender. No rigidity or rebound. Deferred Neuro General: alert, awake and oriented x3. No obvious new focal deficit Musculoskeletal: normal range of motion Extrem General: no cyanosis, no pedal edema Psych Appearance: appropriate affect. Grossly normal Discharge Plan Discharge Plan Patient Disposition: Retirement Facility Activity: Ambulate as Tolerated Diet: Carb Count and Low-Sodium Instructions: Heart Failure, Adult (DC) Prescriptions: New lidocaine [Lidocaine Pain Relief] 4 % Adhesive Patch,Medicated 1 patch topical TID Qty: 0 0RF cyclobenzaprine 5 mg Tablet 10 mg PO QHS Qty: 0 0RF Continued multivitamin Tablet 1 tab PO DAILY docusate sodium 100 mg Capsule 100 mg PO BID Qty: 60 0RF (DME) pen needle, diabetic [BD Ultra-Fine [...] [Humalog KwikPen Insulin] 100 unit/mL insulin pen 1 sliding scale dose SUBCUT ACHS Aranesp (in polysorbate) 60 mcg/mL Solution 80 mcg IV QWEEK Trelegy Ellipta 100-62.5-25 mcg blister with device 1 inh INHALATION Q24H acetaminophen [Arthritis Pain Reliever] 650 mg tablet extended release 650 mg PO Q12H PRN (Reason: pain) buspirone 10 mg tablet 10 mg PO BID metoprolol tartrate 25 mg tablet 25 mg PO DAILY mexiletine 200 mg Capsule 200 mg PO Q8HR 30 Days Qty: 90 1RF atorvastatin 40 mg tablet 40 mg PO [...] INHALE 1 PUFF BY MOUTH EVERY DAY pregabalin [Lyrica] 50 mg capsule 50 mg PO DAILY pramipexole 0.5 mg tablet 0.5 mg PO QHS Documented By: Gary Almaguer MD 04/05/23 14 55 Signed By: <Electronically signed by Gary Almaguer MD> 04/05/23 1504 [facility] Work Phone: 1(697) 759-245102-24-2024 Progress note Author Geronimo Fofana [facility] April 05, 2023 11:56am Note Date/Time April 05, 2023 11:56am [facility] [address] [place] [address] Nephrology Progress Note Signed Patient: Cinthya Wilson MR#: [id number] : 1945 Acct:[id number] Age/Sex: 78 / F Adm Date: 4 Loc: Room: [address] [place] [address] Type: ADM IN Attending Dr: Gary Almageur MD Copies to: ~ Date of Service: 04/05/2023 Subjective Subjective Narrative: 78-year-old female patient with a past medical history of end-stage renal disease on Friday hemodialysis schedule at [facility], coronary disease status post PCI. COPD, chronic respiratory failure, cardiac arrhythmia status post AICD. Patient presented to the emergency room complaining of right side neck pain and behind right ear pain. Patient missed hemodialysis session Friday because she was not feeling well. Patient presentedto [facility] emergency room for this pain and was given muscle relaxant. CTA of neck was done yesterday which showed Severe right and moderate left proximal internal carotid artery stenosis. 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 Vascular surgeon and neurology service consulted I was consulted for end-stage renal disease care. As I mentioned above patient missed hemodialysis on Friday. Lab today revealed potassium 5.7 mmol/L. Patient was seen today during hemodialysis session. Patient is tolerating session well with stable blood pressure. Ultrafiltration is set at 3 L. Patient continues to have pain behind her right ear. Interval history: Patient was seen and examined in room. Patient continues to complain of right neck pain Vascular surgery evaluated the patient. Brain MRI did not show acute CVA. Neurology is also following the patient for occluded right basilar artery with diplopia and dizziness Continues to be on nasal cannula 3 L/min. Blood pressure stable. No fever. No nausea no vomiting. No chest pain. No cough Exam Physical Exam Vital Signs: Temp Pulse Resp BP Pulse Ox O2 Del Method O2 Flow Rate 98.0 F 69 18 133/65 90 L Nasal Cannula 3 04/05/23 08:00 04/05/23 08:42 04/05/23 08:42 04/05/23 08:00 04/05/23 08:00 04/05/23 08:42 04/05/23 08:42 Narrative: General: No acute distress Head :atraumatic normocephalic Eyes: PERRLA. Neck: no JVD no bruit. Heart: S1-S2. RRR Respiratory: Clear to auscultation. No wheezing. No crackles Abdomen: Soft, positive bowel sounds,no tenderness. Neurology: Awake alert oriented x3. No focal deficits Extremity. No cyanosis. No edema Skin: No skin rash Objective Intake and Output I&O: Intake & Output 04/02/23 04/03/23 04/04/23 04/05/23 23:59 23:59 23:59 23:59 Intake Total 875 / 875 780 / 780 1040 / 1040 Output Total 3278 / 3278 0 / 0 2500 / 2500 Balance -2403 / -2403 780 / 780 -1460 / -1460 Weight 138 lb 14.259 oz 141 lb 15.643 oz 140 lb 14.006 oz 141 lb 5.061 oz Meds and Allergies Meds: Active Medications Acetaminophen (Acetaminophen 325 Mg Tablet) 650 mg PO Q6HR PRN PRN Reason: Pain Scale 1 - 3 or fever Stop: 03/31/24 20:52 Last Admin: 04/04/23 11:31 Dose: 650 mg Albuterol (Albuterol Neb 2.5 Mg/3 Ml Vial.Neb) 0.63 mg INHALATION QID PRN PRN Reason: Shortness Of Breath Stop: 03/31/24 22:11 Aspirin (Aspirin 81 Mg Tablet.Dr) 81 mg PO DAILY [facility] Stop: 04/01/24 08:59 Last Admin: 04/05/23 08:28 Dose: 81 mg Atorvastatin Calcium (Atorvastatin 40 Mg Tablet) 40 mg PO QPM [facility] Stop: 03/31/24 20:59 Last Admin: 04/04/23 21:27 Dose: 40 mg Budesonide/Formoterol Fumarate (Budesonide/Formoterol 80-4.5 Mcg 60 Puff/6.9 Gm Hfa.Aer.Ad) 2 puff INHALATION BID [facility] Stop: 04/01/24 08:59 Last Admin: 04/05/23 08:40 Dose: 2 puff Buspirone HCl (Buspirone 10 Mg Tablet) 10 mg PO BID [facility] Stop: 03/31/24 20:59 Last Admin: 04/05/23 08:28 Dose: 10 mg Calcium Acetate (Calcium Acetate 667 Mg Capsule) 667 mg PO TID.WITH.MEALS [facility] Stop: 04/01/24 07:59 Last Admin: 04/05/23 08:28 Dose: 667 mg Citalopram Hydrobromide (Citalopram 40 Mg Tablet) 40 mg PO DAILY [facility] Stop: 04/01/24 08:59 Last Admin: 04/05/23 08:28 Dose: 40 mg Cyclobenzaprine HCl (Cyclobenzaprine 5 Mg Tablet) 5 mg PO QHS [facility] Stop: 04/03/24 21:59 Last Admin: 04/04/23 21:28 Dose: 5 mg Darbepoetin Theodore (Darbepoetin Theodore In Polysorbat 100 Mcg/Ml Vial) 100 mcg IV- PUSH We@1030 [facility]; Protocol Stop: 04/01/24 10:29 Last Admin: 04/02/23 10:38 Dose: 100 mcg Dextrose (Dextrose 50% In Water 25 Gm/50 Ml Syringe) 0 gm IV-PUSH PRN PRN PRN Reason: Hypoglycemia Stop: 03/31/24 20:52 Last Admin: 04/01/23 23:00 Dose: 25 gm Furosemide (Furosemide 20 Mg Tablet) 60 mg PO BID YESSENIA Stop: 03/31/24 20:59 Last Admin: 04/05/23 08:28 Dose: 60 mg Glucose (Dextrose 40% Gel 15 Gm Tube) 0 gm PO PRN PRN PRN Reason: Hypoglycemia Stop: 03/31/24 20:52 Heparin Sodium (Porcine) (Heparin 5,000 Unit/Ml Vial) 5,000 unit SUBCUT Q12HR YESSENIA Stop: 03/31/24 21:59 Last Admin: 04/05/23 08:31 Dose: 5,000 unit Heparin Sodium (Porcine) (Heparin 10,000 Unit/10 Ml Vial) 2,000 unit IV PRN PRN PRN Reason: Dialysis Stop: 04/01/24 09:10 Last Admin: 04/04/23 11:13 Dose: 2,000 unit Heparin Sodium (Porcine) (Heparin 10,000 Unit/10 Ml Vial) 1,000 unit IV PRN PRN PRN Reason: Dialysis Stop: 04/01/24 10:39 Last Admin: 04/04/23 11:13 Dose: 1,000 unit Dextrose (5 % Dextrose In Water) 1,000 mls @ 50 mls/hr IV .Q20H [facility] Stop: 04/01/24 00:44 Last Admin: 04/04/23 21:01 Dose: Not Given Sodium Chloride (0.9% Sodium Chloride 1,000 Ml) 1,000 mls @ 0 mls/hr MISCELLANE.Q0M PRN PRN Reason: Dialysis Stop: 04/01/24 09:10 Last Infusion: 04/04/23 11:14 Dose: Infused Insulin Aspart (Insulin Aspart 300 Units/3 Ml Insuln.Pen) 0 units SUBCUT TID.WM.HS [facility]; Protocol Stop: 03/31/24 21:59 Last Admin: 04/05/23 08:31 Dose: Not Given Ipratropium Macarthur (Ipratropium Macarthur 0.5 Mg/2.5 Ml Vial.Neb) 0.5 mg INHALATION QID [facility] Stop: 04/01/24 08:59 Last Admin: 04/05/23 08:40 Dose: 0.5 mg Lidocaine (Lidocaine 4% Adh..Patch) 1 patch TOPICAL TID YESSENIA Stop: 03/31/24 21:59 Last Admin: 04/05/23 08:28 Dose: 1 patch Metoprolol Tartrate (Metoprolol Tartrate 25 Mg Tablet) 25 mg PO DAILY YESSENIA Stop: 04/01/24 08:59 Last Admin: 04/05/23 08:28 Dose: 25 mg Mexiletine HCl (Mexiletine 200 Mg Capsule) 200 mg PO Q8HR YESSENIA Stop: 03/31/24 21:59 Last Admin: 04/05/23 05:29 Dose: 200 mg Oxycodone HCl (Oxycodone Ir 5 Mg Tablet) 5 mg PO Q6HR PRN PRN Reason: Pain Scale 7 - 10 Last Admin: 04/05/23 06:08 Dose: 5 mg Pantoprazole Sodium (Pantoprazole 40 Mg Tablet.Dr) 40 mg PO DAILY YESSENIA Stop: 04/01/24 08:59 Last Admin: 04/05/23 08:28 Dose: 40 mg Pramipexole Dihydrochloride (Pramipexole 0.5 Mg Tablet) 0.5 mg PO HS YESSENIA Stop: 03/31/24 21:59 Last Admin: 04/04/23 21:27 Dose: 0.5 mg Pregabalin (Pregabalin 50 Mg Capsule) 50 mg PO DAILY YESSENIA Stop: 10/02/23 08:59 Last Admin: 04/05/23 08:28 Dose: 50 mg Sodium Chloride (Sodium Chloride 0.9 % 10 Ml Syringe) 0 ml IV-PUSH PRN PRN PRN Reason: Flush Stop: 04/01/24 09:10 Last Admin: 04/02/23 10:38 Dose: 10 ml Allergies lisinopril Allergy (Unknown, Verified 04/01/23 14:34) Cough gabapentin Allergy (Verified 04/01/23 14:34) Swelling of Lip/Tongue/Throat Results - Nephrology Labs 04/03/23 06:28 04/05/23 06:37 Labs: 04/05/23 06:37 BUN 25 D Creatinine 3.38 H D Radiology Impressions Impressions - last 24 hours: Impressions Brain MRI 04/04/23 11:14 IMPRESSION: No acute intracranial pathology. Remote lacunar infarcts are noted in the periventricular white matter, right greater than left. There is a remote cortical based occipital infarct. Chronic microvascular ischemic changes are noted. Impression dictated by: Jossie Díaz M.D.04/04/2023 2:59 PM Dictation Location: [place] [address] Any impression(s) listed above is documentation that was entered by the reading physician into a diagnostic report(s) for Cinthya Wilson. I have reviewed the report(s) and am incorporating any findings in the treatment plan of this patient where applicable. A&P - Nephrology Assessment/Plan (1) End-stage renal disease (ESRD): Plan: Patient goes to [facility] on Friday for hemodialysis. Patient missed last Friday hemodialysis session due to sickness. Patient has functioning left upper extremity AV fistula (2) Acute hyperkalemia: Plan: Likely from missing dialysis. Potassium this morning 5.7. Patient was given Lokelma yesterday (3) Anemia: Plan: Hemoglobin 10.7 g deciliter. Patient received Aranesp weekly on Friday (4) Neck pain: Plan: Patient presented with neck pain and behind right ear pain. CTA of neck revealed severe bilateral carotid artery disease. Vascular and neurology services is following Plan - No need for hemodialysis session today. Patient tolerated hemodialysis and well yesterday. Next hemodialysis session will be Friday as per the regular schedule -Potassium level normalized with hemodialysis session -Continue calcium acetate with meals for hyperphosphatemia -Serum sodium level corrected with hemodialysis Continue fluid restriction -Continue darbepoetin alpha 100 mcg weekly on Friday. Hemoglobin is below target at 9.2 g deciliter -Vascular surgery team is following the patient for bilateral carotid artery occlusive disease. -Check renal function panel thrice weekly before dialysis adjust order as needed Documented By: Geronimo Fofana MD 04/05/23 115 Signed By: <Electronically signed by Geronimo Fofana MD> 04/05/23 1155 [facility] Work Phone: 1(472) 484-488002-23-2024 Progress note Author Danny Mcclelland [facility] April 04, 2023 7:01pm Note Date/Time April 04, 2023 6:54pm [facility] [address] [place] [address] Neurology Progress Note Signed Patient: Cinthya Wilson MR#: [id number] : 1945 Acct:[id number] Age/Sex: 78 / F Adm Date: 4 Loc: 3T Room: [address] [place] [address] Type: ADM IN Attending Dr: Gary Almaguer MD Copies to: ~ Date of Service: 04/04/2023 Exam Physical Exam Vital Signs: Temp Pulse Resp BP Pulse Ox O2 Del Method O2 Flow Rate 98 F 61 18 119/60 100 Nasal Cannula 3 04/04/23 10:44 04/04/23 10:54 04/04/23 10:44 04/04/23 10:54 04/04/23 10:44 04/04/23 10:44 04/04/23 10:44 Objective Vital Signs Vital Signs: Vital Signs - 24 hr 04/03/23 12:09 04/03/23 16:00 04/03/23 16:00 Temperature 97.9 F Pulse Rate 61 61 Pulse Rate [Monitor] Respiratory Rate 20 20 Blood Pressure 121/66 Blood Pressure [Right Arm] 02 Sat by Pulse Oximetry 100 Oxygen Delivery Method Nasal Cannula Nasal Cannula Oxygen Flow Rate 3 3 04/03/23 16:00 04/03/23 16:32 04/03/23 20:00 Temperature 98.0 F Pulse Rate 65 70 Pulse Rate [Monitor] Respiratory Rate 18 18 Blood Pressure 109/54 L Blood Pressure [Right Arm] 02 Sat by Pulse Oximetry 99 Oxygen Delivery Method Nasal Cannula Nasal Cannula Oxygen Flow Rate 3 3 04/03/23 20:00 04/03/23 23:38 04/04/23 00:28 Temperature 98.2 F Pulse Rate 68 Pulse Rate [Monitor] Respiratory Rate 18 Blood Pressure 110/55 L Blood Pressure [Right Arm] 02 Sat by Pulse Oximetry 100 Oxygen Delivery Method Nasal Cannula Nasal Cannula Nasal Cannula Oxygen Flow Rate 3 3 3 04/04/23 06:00 04/04/23 08:00 04/04/23 08:00 Temperature 98.0 F 98.1 F Pulse Rate 66 66 Pulse Rate [Monitor] Respiratory Rate 18 18 Blood Pressure 149/77 H 138/65 Blood Pressure [Right Arm] 02 Sat by Pulse Oximetry 97 99 Oxygen Delivery Method Nasal Cannula Nasal Cannula Nasal Cannula Oxygen Flow Rate 3 3 3 04/04/23 08:00 04/04/23 08:31 04/04/23 08:37 Temperature Pulse Rate 68 72 Pulse Rate [Monitor] Respiratory Rate 20 20 Blood Pressure Blood Pressure [Right Arm] 02 Sat by Pulse Oximetry Oxygen Delivery Method Nasal Cannula Oxygen Flow Rate 3 04/04/23 10:44 04/04/23 10:54 Temperature 98 F Pulse Rate Pulse Rate [Monitor] 61 61 Respiratory Rate 18 Blood Pressure Blood Pressure [Right Arm] 134/60 119/60 02 Sat by Pulse Oximetry 100 Oxygen Delivery Method Nasal Cannula Oxygen Flow Rate 3 Labs 04/03/23 06:28 04/04/23 08:45 Therapy Recommendations Therapy Recommendations: OT Recommendations OT Recommended Discharge Home with Home Health Location OT Recommended Services at Physical Therapy,Occupational Therapy Discharge PT Recommendations PT Recommended Discharge Home with Home Health Location PT Recommended Services at Physical Therapy,Occupational Therapy Discharge Assessment/Plan (1) Diplopia: Plan CONSULT REASON: Diplopia, neck pain SUBJECTIVE: She has noticed the development of a patch of skin on the right top part of her head feeling numb. It is not very painful or sensitive to the touch. She stillhas the pain in the top part of the neck. No speech changes. No other new symptoms. Nothing else to add to review of systems. No overnight events. Had dialysis again today. No complications. EXAMINATION: In no distress. No deformities or trauma. Upper extremities seem well- perfusedwith no significant edema. Normal work of breathing. Visualized skin is generally intact and without lesions aside from age-related findings. Affect normal. She is alert and conversant. Attention normal. Speech is fluent and nondysarthric. Pupils appear equal. Gaze is conjugate. No extraocular movement abnormalities. No nystagmus. Hearing is normal. Facial strength isnormal. Tongue is midline. Neck extension range of motion is limited. Does not look like dystonia. Muscle bulk, tone, and strength are normal. Patient with numbness to light touch on right center location of her scalp. DATA REVIEW: CTA head and neck findings discussed below Head CT was without acute findings Carotid Dopplers suggest greater than 70% stenosis on the right ICA and 50 to 69% stenosis in the left ICA MRI brain April 04, 2023 shows remote lacunar infarctions in the periventricular white matter bilaterally right greater than left and a remote cortical-based left occipital infarct ASSESSMENT: She had reported sudden onset diplopia which has resolved and not recurred. She said the perceived images were askew and overlaid on top of each other. But aida seems to think that the diplopia persisted when she closed one eye or the other. If this is a monocular diplopia then the issue is refractive and not related to the central nervous system. MRI brain does not show any acute or chronic lesion that would result in diplopia. She seems to be at risk for cerebrovascular disease (vasculopathy, atrial fibrillation, end-stage renal disease, diabetes....). We are attempting to rulethat out. She has severe proximal stenosis of the right internal carotid artery(greater than 70% based on CTA) but I do not suspect any of her presenting symptoms are right cerebral hemispheric anterior circulation in nature. This was not a symptomatic carotid artery stenosis. The right vertebral artery is either occluded or severely stenotic and does not look consistent with dissection. MRI brain shows evidence of chronic small left occipital cortical-based infarction. The neck pain is better but still there. I do not think it is referred pain from vertebral artery dissection. It was described initially in the emergency departments as a neck cramp or even torticollis-like. No cervical dystonia present at the time of my encounter. Seems most likely to be musculoskeletal orrelated to cervical degenerative changes/arthritis. Might have a component of occipital neuropathy/neuralgia as she now feels a small numb feeling patch in the top right of the head. PLAN: 1. No acute cerebrovascular disease. Continue the aspirin 81 mg daily and atorvastatin 40 mg daily. 2. Not a symptomatic carotid artery stenosis of the right ICA. Would favor medical management and ongoing follow-up with vascular surgery. 3. Continue the pregabalin 50 mg daily (ESRD) and add scheduled cyclobenzaprine5 mg nightly and can have some additional doses as needed 4. Outpatient neurology follow-up with consideration for occipital nerve blocks 5. No other recommendations at this time Documented By: Danny Mcclelland DO 04/04/23 3499 Signed By: <Electronically signed by Danny Mcclelland DO> 04/04/23 3870 [facility] Work Phone: 1(379) 380-524902-23-2024 Progress note Author Gary Almaguer [facility] April 04, 2023 4:41pm Note Date/Time April 04, 2023 4:41pm [facility] [address] [place] [address] Hospitalist Progress Note Signed Patient: Cinthya Wilson MR#: [id number] : 1945 Acct:[id number] Age/Sex: 78 / F Adm Date: 4 Loc: 3T Room: [address] [place] [address] Type: ADM IN Attending Dr: Gary Almaguer MD Copies to: ~ Date of Service: 04/04/2023 Subjective Subjective Narrative: Patient was seen and evaluated at bedside. She remained afebrile, hemodynamically stable while here. She underwent dialysis session today, tolerated well. Receiving breathing treatments. denies cough or sputum production, no double vision while here. Underwent MRI brain today as well. She still c/o muscle spams in her neck mostly right sided. Robaxin and Tizanidine have not helped. Exam Physical Exam Vital Signs: Temp Pulse Resp BP Pulse Ox O2 Del Method O2 Flow Rate 97.9 F 62 20 135/58 L 100 Nasal Cannula 2 04/04/23 15:15 04/04/23 15:47 04/04/23 15:47 04/04/23 15:15 04/04/23 15:15 04/04/23 15:15 04/04/23 15:15 Narrative: Const General: cooperative HEENT Normal oropharyngeal mucosa without any ulcers or exudates Neck spasm, slight limitation to tilt her neck to the left and right, mostly R sided stiffness. Eyes: Conjunctiva normal Pulmonary Auscultation: Diminished breath sounds, no crackles, no wheezes Cardiovascular Rate: normal rate Rhythm: regular rhythm Heart Sounds: S1 normal, S2 normal and no murmurs GI Inspection: non-distended Palpation: soft, not firm and nontender. No rigidity or rebound. Deferred Neuro General: alert, awake and oriented x3. No obvious new focal deficit Musculoskeletal: normal range of motion Extrem General: no cyanosis, no pedal edema Psych Appearance: appropriate affect. Grossly normal Objective Lab Results 04/03/23 06:28 04/04/23 08:45 Meds Allergies and Active Meds Allergies lisinopril Allergy (Unknown, Verified 04/01/23 14:34) Cough gabapentin Allergy (Verified 04/01/23 14:34) Swelling of Lip/Tongue/Throat Active Meds: Active Medications Generic Name Dose Route Start Last Admin Trade Name Freq PRN Reason Stop Dose Admin Acetaminophen 650 mg 04/01/23 20:53 04/04/23 11:31 Acetaminophen 325 Mg Tablet PO 03/31/24 20:52 650 mg Q6HR PRN Administration Pain Scale 1 - 3 or fever Albuterol 0.63 mg 04/01/23 22:12 Albuterol Neb 2.5 Mg/3 Ml Vial.Neb INHALATION 03/31/24 22:11 QID PRN Shortness Of Breath Aspirin 81 mg 04/02/23 09:00 04/04/23 08:48 Aspirin 81 Mg Tablet. PO 04/01/24 08:59 81 mg DAILY YESSENIA Administration Atorvastatin Calcium 40 mg 04/01/23 21:00 04/03/23 20:14 Atorvastatin 40 Mg Tablet PO 03/31/24 20:59 40 mg QPM YESSENIA Administration Budesonide/Formoterol Fumarate 2 puff 04/02/23 09:00 04/04/23 08:29 Budesonide/Formoterol 80-4.5 Mcg 60 Puff/6.9 Gm Hfa.Aer.Ad INHALATION 04/01/24 08:59 2 puff BID YESSENIA Administration Buspirone HCl 10 mg 04/01/23 21:00 04/04/23 08:48 Buspirone 10 Mg Tablet PO 03/31/24 20:59 10 mg BID YESSENIA Administration Calcium Acetate 667 mg 04/02/23 08:00 04/04/23 11:34 Calcium Acetate 667 Mg Capsule PO 04/01/24 07:59 Not Given TID.WITH.MEALS YESSENIA Citalopram Hydrobromide 40 mg 04/02/23 09:00 04/04/23 08:48 Citalopram 40 Mg Tablet PO 04/01/24 08:59 40 mg DAILY YESSENIA Administration Cyclobenzaprine HCl 10 mg 04/04/23 16:28 Cyclobenzaprine 10 Mg Tablet PO 04/03/24 16:27 Q8HR PRN Muscle Spasm Darbepoetin Theodore 100 mcg 04/02/23 10:30 04/02/23 10:38 Darbepoetin Theodore In Polysorbat 100 Mcg/Ml Vial IV-PUSH 04/01/24 10:29 100 mcg We@1030 YESSENIA Administration Protocol Dextrose 0 gm 04/01/23 20:53 04/01/23 23:00 Dextrose 50% In Water 25 Gm/50 Ml Syringe IV-PUSH 03/31/24 20:52 25 gm PRN PRN Administration Hypoglycemia Furosemide 60 mg 04/01/23 21:00 04/04/23 08:48 Furosemide 20 Mg Tablet PO 03/31/24 20:59 60 mg BID YESSENIA Administration Glucose 0 gm 04/01/23 20:53 Dextrose 40% Gel 15 Gm Tube PO 03/31/24 20:52 PRN PRN Hypoglycemia Heparin Sodium (Porcine) 5,000 unit 04/01/23 22:00 04/04/23 08:54 Heparin 5,000 Unit/Ml Vial SUBCUT 03/31/24 21:59 5,000 unit Q12HR YESSENIA Administration Heparin Sodium (Porcine) 2,000 unit 04/02/23 09:11 04/04/23 11:13 Heparin 10,000 Unit/10 Ml Vial IV 04/01/24 09:10 2,000 unit PRN PRN Administration Dialysis Heparin Sodium (Porcine) 1,000 unit 04/02/23 10:40 04/04/23 11:13 Heparin 10,000 Unit/10 Ml Vial IV 04/01/24 10:39 1,000 unit PRN PRN Administration Dialysis Dextrose 1,000 mls @ 50 mls/hr 04/02/23 00:45 04/04/23 11:53 5 % Dextrose In Water IV 04/01/24 00:44 Not Given .Q20H YESSENIA Sodium Chloride 1,000 mls @ 0 mls/hr 04/02/23 09:11 04/04/23 11:14 0.9% Sodium Chloride 1,000 Ml MISCELLANE 04/01/24 09:10 Infused .Q0M PRN Infusion Dialysis As Directed Insulin Aspart 0 units 04/01/23 22:00 04/04/23 11:34 Insulin Aspart 300 Units/3 Ml Insuln.Pen SUBCUT 03/31/24 21:59 Not Given TID.WM.HS [facility] Protocol Ipratropium Macarthur 0.5 mg 04/02/23 09:00 04/04/23 15:46 Ipratropium [place] 0.5 Mg/2.5 Ml Vial.Neb INHALATION 04/01/24 08:59 0.5 mg QID YESSENIA Administration Lidocaine 1 patch 04/01/23 22:00 04/04/23 14:17 Lidocaine 4% Adh..Patch TOPICAL 02/19/25 21:59 Not Given TID YESSENIA Metoprolol Tartrate 25 mg 04/02/23 09:00 04/04/23 08:48 Metoprolol Tartrate 25 Mg Tablet PO 04/01/24 08:59 25 mg DAILY YESSENIA Administration Mexiletine HCl 200 mg 04/01/23 22:00 04/04/23 14:00 Mexiletine 200 Mg Capsule PO 03/31/24 21:59 Not Given Q8HR YESSENIA Oxycodone HCl 5 mg 04/03/23 21:14 04/04/23 04:36 Oxycodone Ir 5 Mg Tablet PO 5 mg Q6HR PRN Administration Pain Scale 7 - 10 Pantoprazole Sodium 40 mg 04/02/23 09:00 04/04/23 08:48 Pantoprazole 40 Mg Tablet. PO 04/01/24 08:59 40 mg DAILY YESSENIA Administration Pramipexole Dihydrochloride 0.5 mg 04/01/23 22:00 04/03/23 21:10 Pramipexole 0.5 Mg Tablet PO 03/31/24 21:59 0.5 mg HS YESSENIA Administration Sodium Chloride 0 ml 04/02/23 09:11 04/02/23 10:38 Sodium Chloride 0.9 % 10 Ml Syringe IV-PUSH 04/01/24 09:10 10 ml PRN PRN Administration Flush A&P - Hospitalist Assessment/Plan (1) End-stage renal disease (ESRD): (2) Acute hyperkalemia: (3) Fluid overload: (4) Missed dialysis: (5) Neck pain: (6) Chronic hypoxemic respiratory failure: (7) COPD (chronic obstructive pulmonary disease): Plan Severe right ICA stenosis Remote lacunar infarcts and remote cortical based occipital infarct per MRI 04/04/23 -Reports sudden onset diplopia at home. Denies diplopia while here so far. -Continue aspirin and high intensity statins -Continue BP meds - BP controlled so far -CT of the neck indicated severe right ICA stenosis of more than 70%. Around 50% on the left -Vascular has been consulted. Underwent Carotid duplex. Further recs to follow by vascular. -Neurology has been consulted. MRI resulted. further recs per neurology. -Still with neck stiffness, seems to be MSK/arthritic related, tizanidine did not help. Will switch to Robaxin TID. -Monitor for any new neuro symptoms ESRD on HD Missed dialysis session -Nephrology following to maintain dialysis schedule -Dialysis sessions as needed given contrast use while investigating her vascularpathologies. Physical debility Functional decline -Seen by PT/OT. Pt agreeable to rehab/SNF. CM following. Plan for SNF upon discharge DVT ppx: heparin Discussed with patient at bedside, all questions answered Documented By: Gary Almaguer MD 04/04/23 16 36 Signed By: <Electronically signed by Gary Almaguer MD> 04/04/23 1641 [facility] Work Phone: 1(949) 122-942802-23-2024 Progress note Author Geronimo Fofana [facility] April 04, 2023 11:45am Note Date/Time April 04, 2023 11:45am [facility] [address] [place] [address] Nephrology Progress Note Signed Patient: Cinthya Wilson MR#: [id number] : 1945 Acct:[id number] Age/Sex: 78 / F Adm Date: 4 Loc: Room: [address] [place] [address] Type: ADM IN Attending Dr: Gary Almaguer MD Copies to: ~ Date of Service: 04/04/2023 Subjective Subjective Narrative: 78-year-old female patient with a past medical history of end-stage renal disease on Friday hemodialysis schedule at [facility], coronary disease status post PCI. COPD, chronic respiratory failure, cardiac arrhythmia status post AICD. Patient presented to the emergency room complaining of right side neck pain and behind right ear pain. Patient missed hemodialysis session Friday because she was not feeling well. Patient [facility] emergency room for this pain and was given muscle relaxant. CTA of neck was done yesterday which showed Severe right and moderate left proximal internal carotid artery stenosis. 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 Vascular surgeon and neurology service consulted I was consulted for end-stage renal disease care. As I mentioned above patient missed hemodialysis on Friday. Lab today revealed potassium 5.7 mmol/L. Patient was seen today during hemodialysis session. Patient is tolerating session well with stable blood pressure. Ultrafiltration is set at 3 L. Patient continues to have pain behind her right ear. Interval history: Patient was seen and examined on hemodialysis. Patient continues to complain ofright neck pain Vascular surgery evaluated the patient. MRI is pending neurology is also following the patient for occluded right basilar artery with diplopia and dizziness Continues to be on nasal cannula 3 L/min. Blood pressure stable. No fever. No nausea no vomiting. No chest pain. No cough Exam Physical Exam Vital Signs: Temp Pulse Resp BP Pulse Ox O2 Del Method O2 Flow Rate 98 F 61 18 119/60 100 Nasal Cannula 3 04/04/23 10:44 04/04/23 10:54 04/04/23 10:44 04/04/23 10:54 04/04/23 10:44 04/04/23 10:44 04/04/23 10:44 Narrative: General: No acute distress Head :atraumatic normocephalic Eyes: PERRLA. Neck: no JVD no bruit. Heart: S1-S2. RRR Respiratory: Clear to auscultation. No wheezing. No crackles Abdomen: Soft, positive bowel sounds,no tenderness. Neurology: Awake alert oriented x3. No focal deficits Extremity. No cyanosis. No edema Skin: No skin rash Objective Intake and Output I&O: Intake & Output 04/01/23 04/02/23 04/03/23 04/04/23 23:59 23:59 23:59 23:59 Intake Total 150 / 150 875 / 875 780 / 780 740 / 740 Output Total 3278 / 3278 0 / 0 0 / 0 Balance 150 / 150 -2403 / -2403 780 / 780 740 / 740 Weight 138 lb 3.677 oz 138 lb 14.259 oz 141 lb 15.643 oz 140 lb 14.006 oz Meds and Allergies Meds: Active Medications Acetaminophen (Acetaminophen 325 Mg Tablet) 650 mg PO Q6HR PRN PRN Reason: Pain Scale 1 - 3 or fever Stop: 03/31/24 20:52 Last Admin: 04/04/23 11:31 Dose: 650 mg Albuterol (Albuterol Neb 2.5 Mg/3 Ml Vial.Neb) 0.63 mg INHALATION QID PRN PRN Reason: Shortness Of Breath Stop: 03/31/24 22:11 Aspirin (Aspirin 81 Mg Tablet.) 81 mg PO DAILY [facility] Stop: 04/01/24 08:59 Last Admin: 04/04/23 08:48 Dose: 81 mg Atorvastatin Calcium (Atorvastatin 40 Mg Tablet) 40 mg PO QPM YESSENIA Stop: 03/31/24 20:59 Last Admin: 04/03/23 20:14 Dose: 40 mg Budesonide/Formoterol Fumarate (Budesonide/Formoterol 80-4.5 Mcg 60 Puff/6.9 Gm Hfa.Aer.Ad) 2 puff INHALATION BID YESSENIA Stop: 04/01/24 08:59 Last Admin: 04/04/23 08:29 Dose: 2 puff Buspirone HCl (Buspirone 10 Mg Tablet) 10 mg PO BID [facility] Stop: 03/31/24 20:59 Last Admin: 04/04/23 08:48 Dose: 10 mg Calcium Acetate (Calcium Acetate 667 Mg Capsule) 667 mg PO TID.WITH.MEALS [facility] Stop: 04/01/24 07:59 Last Admin: 04/04/23 11:34 Dose: Not Given Citalopram Hydrobromide (Citalopram 40 Mg Tablet) 40 mg PO DAILY [facility] Stop: 04/01/24 08:59 Last Admin: 04/04/23 08:48 Dose: 40 mg Darbepoetin Theodore (Darbepoetin Theodore In Polysorbat 100 Mcg/Ml Vial) 100 mcg IV- PUSH We@1030 YESSENIA; Protocol Stop: 04/01/24 10:29 Last Admin: 04/02/23 10:38 Dose: 100 mcg Dextrose (Dextrose 50% In Water 25 Gm/50 Ml Syringe) 0 gm IV-PUSH PRN PRN PRN Reason: Hypoglycemia Stop: 03/31/24 20:52 Last Admin: 04/01/23 23:00 Dose: 25 gm Furosemide (Furosemide 20 Mg Tablet) 60 mg PO BID YESSENIA Stop: 03/31/24 20:59 Last Admin: 04/04/23 08:48 Dose: 60 mg Glucose (Dextrose 40% Gel 15 Gm Tube) 0 gm PO PRN PRN PRN Reason: Hypoglycemia Stop: 03/31/24 20:52 Heparin Sodium (Porcine) (Heparin 5,000 Unit/Ml Vial) 5,000 unit SUBCUT Q12HR YESSENIA Stop: 03/31/24 21:59 Last Admin: 04/04/23 08:54 Dose: 5,000 unit Heparin Sodium (Porcine) (Heparin 10,000 Unit/10 Ml Vial) 2,000 unit IV PRN PRN PRN Reason: Dialysis Stop: 04/01/24 09:10 Last Admin: 04/04/23 11:13 Dose: 2,000 unit Heparin Sodium (Porcine) (Heparin 10,000 Unit/10 Ml Vial) 1,000 unit IV PRN PRN PRN Reason: Dialysis Stop: 04/01/24 10:39 Last Admin: 04/04/23 11:13 Dose: 1,000 unit Dextrose (5 % Dextrose In Water) 1,000 mls @ 50 mls/hr IV .Q20H [facility] Stop: 04/01/24 00:44 Last Admin: 04/02/23 21:40 Dose: Not Given Sodium Chloride (0.9% Sodium Chloride 1,000 Ml) 1,000 mls @ 0 mls/hr MISCELLANE.Q0M PRN PRN Reason: Dialysis Stop: 04/01/24 09:10 Last Infusion: 04/04/23 11:14 Dose: Infused Insulin Aspart (Insulin Aspart 300 Units/3 Ml Insuln.Pen) 0 units SUBCUT TID.WM.HS [facility]; Protocol Stop: 03/31/24 21:59 Last Admin: 04/04/23 11:34 Dose: Not Given Ipratropium Macarthur (Ipratropium Macarthur 0.5 Mg/2.5 Ml Vial.Neb) 0.5 mg INHALATION QID [facility] Stop: 04/01/24 08:59 Last Admin: 04/04/23 08:29 Dose: 0.5 mg Lidocaine (Lidocaine 4% Adh..Patch) 1 patch TOPICAL TID YESSENIA Stop: 03/31/24 21:59 Last Admin: 04/04/23 08:48 Dose: 1 patch Methocarbamol (Methocarbamol 500 Mg Tablet) 1,000 mg PO TID [facility] Stop: 04/02/24 15:14 Last Admin: 04/04/23 08:48 Dose: 1,000 mg Metoprolol Tartrate (Metoprolol Tartrate 25 Mg Tablet) 25 mg PO DAILY [facility] Stop: 04/01/24 08:59 Last Admin: 04/04/23 08:48 Dose: 25 mg Mexiletine HCl (Mexiletine 200 Mg Capsule) 200 mg PO Q8HR [facility] Stop: 03/31/24 21:59 Last Admin: 04/04/23 06:38 Dose: 200 mg Oxycodone HCl (Oxycodone Ir 5 Mg Tablet) 5 mg PO Q6HR PRN PRN Reason: Pain Scale 7 - 10 Last Admin: 04/04/23 04:36 Dose: 5 mg Pantoprazole Sodium (Pantoprazole 40 Mg Tablet.) 40 mg PO DAILY YESSENIA Stop: 04/01/24 08:59 Last Admin: 04/04/23 08:48 Dose: 40 mg Pramipexole Dihydrochloride (Pramipexole 0.5 Mg Tablet) 0.5 mg PO HS YESSENIA Stop: 03/31/24 21:59 Last Admin: 04/03/23 21:10 Dose: 0.5 mg Sodium Chloride (Sodium Chloride 0.9 % 10 Ml Syringe) 0 ml IV-PUSH PRN PRN PRN Reason: Flush Stop: 04/01/24 09:10 Last Admin: 04/02/23 10:38 Dose: 10 ml Allergies lisinopril Allergy (Unknown, Verified 04/01/23 14:34) Cough gabapentin Allergy (Verified 04/01/23 14:34) Swelling of Lip/Tongue/Throat Results Labs 04/03/23 06:28 04/04/23 08:45 Labs: 04/04/23 08:45 BUN 55 H Creatinine 5.42 H D Albumin 3.4 L Radiology Impressions Impressions - last 24 hours: Any impression(s) listed above is documentation that was entered by the reading physician into a diagnostic report(s) for Cinthya Wilson. I have reviewed the report(s) and am incorporating any findings in the treatment plan of this patient where applicable. A&P - Nephrology Assessment/Plan (1) End-stage renal disease (ESRD): Plan: Patient goes to [facility] on Friday for hemodialysis. Patient missed last Friday hemodialysis session due to sickness. Patient has functioning left upper extremity AV fistula (2) Acute hyperkalemia: Plan: Likely from missing dialysis. Potassium this morning 5.7. Patient was given Lokelma yesterday (3) Anemia: Plan: Hemoglobin 10.7 g deciliter. Patient received Aranesp weekly on Friday (4) Neck pain: Plan: Patient presented with neck pain and behind right ear pain. CTA of neck revealed severe bilateral carotid artery disease. Vascular and neurology services is following Plan - Hemodialysis session today with a blood flow rate 350, dialysate flow rate 500, ultrafiltration 2 L -Potassium level normalized with hemodialysis session -Continue calcium acetate with meals for hyperphosphatemia -Serum sodium level corrected with hemodialysis but remains low at 130. Continue fluid restriction -Continue darbepoetin alpha 100 mcg weekly on Friday. Hemoglobin is below target at 9.2 g deciliter -Vascular surgery team is following the patient for bilateral carotid artery occlusive disease. -Check renal function panel thrice weekly before dialysis adjust order as needed Documented By: Geronimo Fofana MD 04/04/23 1144 Signed By: <Electronically signed by Geronimo Fofana MD> 04/04/23 1143 [facility] Work Phone: [phone]) 746-460102-22-2024 Consult note Author Maxime Bhatti [facility] April 03, 2023 3:31pm Note Date/Time April 02, 2023 8:41am [facility] [address] [place] [address] Vascular Surgery Consult Note Signed Patient: Cinthya Wilson MR#: [id number] : 1945 Acct:[id number] Age/Sex: 78 / F Adm Date: 4 Loc: Room: [address] [place] [address] Type: ADM IN Attending Dr: Gary Almaguer MD Copies to: MD Tessie Bourgeois II, APRN Matthew T Langenberg, MD Obaydah M Daromar, MD~ HPI Consult HPI Reason for consult: ICA stenosis History of present illness: Ms. Wilson is a 78 year old female who presented through the emergency department with complaints of right-sided neck pain and spasms. She also reported an episode of shakiness in blurred vision in bilateral eyes. She tells me when she blinked her eyes many times, the blurriness cleared up. She denies any hemispheric symptoms whatsoever. CT of the neck indicated severe right ICA stenosis of more than 70%. Around 50% on the left. She does take a daily aspirin and statin medication. She denies any chest pain or shortness of breath. She denies any headache, nausea, vomiting. Additional chronic health issues include COPD, diabetes, end-stage renal disease on hemodialysis, GERD, neuropathy, CAD, hypertension, and CHF. This is Dr. Bhatti dictating. I do not believe the patient to be symptomatic from a cerebrovascular standpoint. I do not recommend any surgical intervention at this time. I believe her to be asymptomatic. I recommended nonoperative management with risk factor modification. Due to her comorbidities, she is a high surgical risk. We will follow her up in the officeto reevaluate the carotid duplex for surveillance studies. I would not recommend intervention unless the patient became symptomatic. She should be on dual antiplatelet therapy and high intensity statin. We will see her as an outpatient in the office. cc:: CC: Teresa Pagan MD Data of Consult Consult date: 04/02/2023 Requesting Physician: Teresa Pagan MD Review of Systems Review of Systems All other systems reviewed & are negative unless noted below or in HPI [facility] Medical History COPD (chronic obstructive pulmonary disease) Diabetes mellitus with insulin therapy Chronic combined systolic and diastolic CHF (congestive heart failure) Secondary hyperparathyroidism Anemia of renal disease Benign hypertension with end-stage renal disease Type 2 diabetes mellitus with diabetic chronic kidney disease Hyponatremia AV fistula left ESRD (end stage renal disease) Pneumonia Polymyalgia GERD (gastroesophageal reflux disease) Anxiety and depression Skin cancer mohs procedure for removal Neuropathy right thigh and feet Sleep apnea Irregular heart rhythm prior to stent placement per pt report Neck pain with history of cervical spinal surgery Cataract had bilateral PHACO Chronic back pain Arthritis CAD (coronary artery disease) Cervical spinal stenosis Anxiety Hyperlipidemia HTN (hypertension) LVH (left ventricular hypertrophy) Diabetes Insomnia Lumbosacral spondylolysis Anemia CHF (congestive heart failure) Chronic kidney disease Surgical History History of shoulder surgery rt shoulder H/O heart artery stent History of back surgery lumbar History of carpal tunnel release bilateral History of appendectomy History of total abdominal hysterectomy and bilateral salpingo-oophorectomy History of coronary angioplasty with insertion of stent History of x2 History of tonsillectomy History of D&C Family History Father Heart disease Cancer Mother Cancer Diabetes Brother Cancer Legacy FamHx Relation: Brother(s); Legacy FamHx Problem: Diagnosed with Cancer Father Cancer Legacy FamHx Problem: Diagnosed with Cancer Family/Other Legacy FamHx Problem: 1 brother Mother Cancer Legacy FamHx Problem: Diagnosed with Cancer Social History Smoking Status: Never smoker Substance Use Type: None Social History Comments: adult son Allergies & Active Medications Medications and Allergies Allergies lisinopril Allergy (Unknown, Verified 04/01/23 14:34) Cough gabapentin Allergy (Verified 04/01/23 14:34) Swelling of Lip/Tongue/Throat Exam Physical Exam Vital Signs: Temp Pulse Resp BP Pulse Ox O2 Del Method O2 Flow Rate 97.3 F L 68 20 125/66 100 Nasal Cannula 4 04/01/23 23:05 04/02/23 04:00 04/02/23 04:00 04/02/23 04:00 04/02/23 04:00 04/02/23 08:06 04/02/23 08:06 Narrative: 78-year-old female, no acute distress. She is alert and oriented x 3. She is resting comfortably in her bed this morning on my rounds. She complainsof right-sided neck pain and has ice to the region which she tells me helps. She has no shortness of breath with conversation. No facial asymmetry, tongue is midline, neck is supple, no JVD, no carotid bruit. Her heart shows regular rate and rhythm, no murmur. Lung sounds are clear throughout bilaterally. She moves all extremities equally. Bilateral boat buffer plastic strength is adequate and equal. Const General: cooperative and comfortable Results Labs 04/03/23 06:28 04/03/23 06:28 Labs: Laboratory Results - last 24 hr 04/01/23 04/01/23 04/01/23 14:44 16:45 17:00 Corrected WBC 8.8 Uncorrected WBC Count 8.8 RBC 3.82 Hgb 10.2 L Hct 33.1 L MCV 86.7 MCH 26.7 MCHC 30.8 L RDW 19.9 H Plt Count 289 MPV 7.8 Neut % (Auto) 68.6 Lymph % (Auto) 15.5 Gilchrist % (Auto) 9.5 Eos % (Auto) 5.5 Baso % (Auto) 0.9 Nucleat RBC Rel Count 0.0 Neut # (Auto) 6.1 Lymph # (Auto) 1.4 Gilchrist # (Auto) 0.8 Eos # (Auto) 0.5 H Baso # (Auto) 0.1 Monocyte Dist Width 23.82 H PT 11.3 INR 1.0 APTT 35.7 PHA Creatinine Clear 6.56 Sodium 131 L Potassium 5.3 H Chloride 92 L Carbon Dioxide 27.6 Anion Gap 16.7 H BUN 69 H Creatinine 6.30 H Est GFR (CKD-EPI) 6.414 Glucose 142 H POC Glucose 126 152 POC Glucose Comment Calcium 9.9 Total Bilirubin 0.4 Direct Bilirubin 0.00 L Indirect Bilirubin 0.4 AST 12 L ALT 9 Alkaline Phosphatase 216 H Total Creatine Kinase 31 Troponin I High Sens 15.3 H B-Natriuretic Peptide 1382.0 H Total Protein 7.1 Albumin 3.5 Globulin 3.6 Albumin/Globulin Ratio 1.0 SARS-CoV-2 Rap RNA(RT-PCR) Negative 04/01/23 04/01/23 04/01/23 22:14 22:52 23:11 Corrected WBC Uncorrected WBC Count RBC Hgb Hct MCV MCH MCHC RDW Plt Count MPV Neut % (Auto) Lymph % (Auto) Gilchrist % (Auto) Eos % (Auto) Baso % (Auto) Nucleat RBC Rel Count Neut # (Auto) Lymph # (Auto) Gilchrist # (Auto) Eos # (Auto) Baso # (Auto) Monocyte Dist Width PT INR APTT PHA Creatinine Clear Sodium Potassium Chloride Carbon Dioxide Anion Gap BUN Creatinine Est GFR (CKD-EPI) Glucose POC Glucose 88 59 L* 147 POC Glucose Comment Glu2: cleaned meter Calcium Total Bilirubin Direct Bilirubin Indirect Bilirubin AST ALT Alkaline Phosphatase Total Creatine Kinase Troponin I High Sens B-Natriuretic Peptide Total Protein Albumin Globulin Albumin/Globulin Ratio SARS-CoV-2 Rap RNA(RT-PCR) 04/02/23 04/02/23 04/02/23 00:19 01:21 02:24 Corrected WBC Uncorrected WBC Count RBC Hgb Hct MCV MCH MCHC RDW Plt Count MPV Neut % (Auto) Lymph % (Auto) Gilchrist % (Auto) Eos % (Auto) Baso % (Auto) Nucleat RBC Rel Count Neut # (Auto) Lymph # (Auto) Gilchrist # (Auto) Eos # (Auto) Baso # (Auto) Monocyte Dist Width PT INR APTT PHA Creatinine Clear Sodium Potassium Chloride Carbon Dioxide Anion Gap BUN Creatinine Est GFR (CKD-EPI) Glucose POC Glucose 110 108 114 POC Glucose Comment Glu2: cleaned meter Calcium Total Bilirubin Direct Bilirubin Indirect Bilirubin AST ALT Alkaline Phosphatase Total Creatine Kinase Troponin I High Sens B-Natriuretic Peptide Total Protein Albumin Globulin Albumin/Globulin Ratio SARS-CoV-2 Rap RNA(RT-PCR) 04/02/23 04/02/23 04/02/23 03:45 05:11 06:14 Corrected WBC Uncorrected WBC Count RBC Hgb Hct MCV MCH MCHC RDW Plt Count MPV Neut % (Auto) Lymph % (Auto) Gilchrist % (Auto) Eos % (Auto) Baso % (Auto) Nucleat RBC Rel Count Neut # (Auto) Lymph # (Auto) Gilchrist # (Auto) Eos # (Auto) Baso # (Auto) Monocyte Dist Width PT INR APTT PHA Creatinine Clear Sodium Potassium Chloride Carbon Dioxide Anion Gap BUN Creatinine Est GFR (CKD-EPI) Glucose POC Glucose 119 131 150 POC Glucose Comment Glu2: cleaned meter Calcium Total Bilirubin Direct Bilirubin Indirect Bilirubin AST ALT Alkaline Phosphatase Total Creatine Kinase Troponin I High Sens B-Natriuretic Peptide Total Protein Albumin Globulin Albumin/Globulin Ratio SARS-CoV-2 Rap RNA(RT-PCR) 04/02/23 04/02/23 06:22 08:24 Corrected WBC 7.1 Uncorrected WBC Count 7.1 RBC 3.98 Hgb 10.7 L Hct 34.5 MCV 86.5 MCH 26.8 MCHC 30.9 L RDW 20.0 H Plt Count 278 MPV 7.8 Neut % (Auto) 69.6 Lymph % (Auto) 15.2 Gilchrist % (Auto) 9.9 Eos % (Auto) 4.6 Baso % (Auto) 0.7 Nucleat RBC Rel Count 0.0 Neut # (Auto) 4.9 Lymph # (Auto) 1.1 Gilchrist # (Auto) 0.7 Eos # (Auto) 0.3 Baso # (Auto) 0.0 Monocyte Dist Width PT INR APTT PHA Creatinine Clear 6.55 Sodium 129 L Potassium 5.7 H Chloride 93 L Carbon Dioxide 23.5 Anion Gap 18.2 H BUN 70 H Creatinine 6.31 H Est GFR (CKD-EPI) 6.401 Glucose 119 H POC Glucose 119 POC Glucose Comment Calcium 9.6 Total Bilirubin Direct Bilirubin Indirect Bilirubin AST ALT Alkaline Phosphatase Total Creatine Kinase Troponin I High Sens B-Natriuretic Peptide Total Protein Albumin Globulin Albumin/Globulin Ratio SARS-CoV-2 Rap RNA(RT-PCR) PT 11.3 Seconds (9.0-12.9) 04/01/23 17:00 APTT 35.7 Seconds (25.1-36.5) 04/01/23 17:00 Microbiology Microbiology: 04/01/23 16:45 Nasopharyngeal SARS-CoV-2, Influenza & RSV (PCR) - Final A&P - Vascular (1) Carotid stenosis, bilateral: Plan: By CTA this patient has greater than 70% stenosis of the right ICA and around 50% stenosis on the left. She has no hemispheric symptoms whatsoever. Her onlycomplaint is some right sided neck pain which has been ongoing for a few days now. She is on aspirin and statin medication daily. Will go ahead and obtain acarotid duplex study for comparison and go from there. Documented By: Maxime Bhatti MD 04/02/23 0836 Signed By: <Electronically signed by Maxime Bhatti MD> 04/03/23 1531 <Electronically signed by NELI Walker> 04/02/23 1610 [facility] Work Phone: 1(457) 464-148602-22-2024 Progress note Author Gary Almaguer [facility] April 03, 2023 3:18pm Note Date/Time April 03, 2023 3:11pm [facility] [address] [place] [address] Hospitalist Progress Note Signed Patient: Cinthya Wilson MR#: [id number] : 1945 Acct:[id number] Age/Sex: 78 / F Adm Date: 4 Loc: Room: [address] [place] [address] Type: ADM IN Attending Dr: Gary Almaguer MD Copies to: ~ Date of Service: 04/03/2023 Subjective Subjective Narrative: Patient was seen and evaluated at bedside. She remained afebrile, hemodynamically stable while here. She is out of bed to chair. Tolerating oral diet. Has not had BM while her and okay with Miralax. Ordered. She still has neck pain/stiffness mostly on the right side, appears to be musculoskeletal, Tizanidine did not help, will switch to Robaxin. Otherwise, denies nausea, vomiting, chest pain, headache, or double vision. Denies dizziness or lightheadedness. Pending MRI brain today. Exam Physical Exam Vital Signs: Temp Pulse Resp BP Pulse Ox O2 Del Method O2 Flow Rate 97.9 F 61 20 148/67 H 100 Nasal Cannula 3 04/03/23 11:20 04/03/23 12:09 04/03/23 12:09 04/03/23 11:20 04/03/23 11:20 04/03/23 11:20 04/03/23 11:20 Narrative: Const General: cooperative HEENT Normal oropharyngeal mucosa without any ulcers or exudates Neck spasm, slight limitation to tilt her neck to the left and right, mostly R sided stiffness. Eyes: Conjunctiva normal Pulmonary Auscultation: Diminished breath sounds, no crackles, no wheezes Cardiovascular Rate: normal rate Rhythm: regular rhythm Heart Sounds: S1 normal, S2 normal and no murmurs GI Inspection: non-distended Palpation: soft, not firm and nontender. No rigidity or rebound. Deferred Neuro General: alert, awake and oriented x3. No obvious new focal deficit Musculoskeletal: normal range of motion Extrem General: no cyanosis, no pedal edema Psych Appearance: appropriate affect. Grossly normal Objective Lab Results 04/03/23 06:28 04/03/23 06:28 Meds Allergies and Active Meds Allergies lisinopril Allergy (Unknown, Verified 04/01/23 14:34) Cough gabapentin Allergy (Verified 04/01/23 14:34) Swelling of Lip/Tongue/Throat Active Meds: Active Medications Generic Name Dose Route Start Last Admin Trade Name Freq PRN Reason Stop Dose Admin Acetaminophen 650 mg 04/01/23 20:53 04/03/23 07:49 Acetaminophen 325 Mg Tablet PO 03/31/24 20:52 650 mg Q6HR PRN Administration Pain Scale 1 - 3 or fever Albuterol 0.63 mg 04/01/23 22:12 Albuterol Neb 2.5 Mg/3 Ml Vial.Neb INHALATION 03/31/24 22:11 QID PRN Shortness Of Breath Aspirin 81 mg 04/02/23 09:00 04/03/23 09:34 Aspirin 81 Mg Tablet. PO 04/01/24 08:59 81 mg DAILY YESSENIA Administration Atorvastatin Calcium 40 mg 04/01/23 21:00 04/02/23 21:38 Atorvastatin 40 Mg Tablet PO 03/31/24 20:59 40 mg QPM YESSENIA Administration Budesonide/Formoterol Fumarate 2 puff 04/02/23 09:00 04/03/23 08:52 Budesonide/Formoterol 80-4.5 Mcg 60 Puff/6.9 Gm Hfa.Aer.Ad INHALATION 04/01/24 08:59 2 puff BID YESSENIA Administration Buspirone HCl 10 mg 04/01/23 21:00 04/03/23 09:37 Buspirone 10 Mg Tablet PO 03/31/24 20:59 10 mg BID YESSENIA Administration Calcium Acetate 667 mg 04/02/23 08:00 04/03/23 12:47 Calcium Acetate 667 Mg Capsule PO 04/01/24 07:59 667 mg TID.WITH.MEALS YESSENIA Administration Citalopram Hydrobromide 40 mg 04/02/23 09:00 04/03/23 09:34 Citalopram 40 Mg Tablet PO 04/01/24 08:59 40 mg DAILY YESSENIA Administration Darbepoetin Theodore 100 mcg 04/02/23 10:30 04/02/23 10:38 Darbepoetin Theodore In Polysorbat 100 Mcg/Ml Vial IV-PUSH 04/01/24 10:29 100 mcg We@1030 YESSENIA Administration Protocol Dextrose 0 gm 04/01/23 20:53 04/01/23 23:00 Dextrose 50% In Water 25 Gm/50 Ml Syringe IV-PUSH 03/31/24 20:52 25 gm PRN PRN Administration Hypoglycemia Furosemide 60 mg 04/01/23 21:00 04/03/23 09:35 Furosemide 20 Mg Tablet PO 03/31/24 20:59 60 mg BID YESSENIA Administration Glucose 0 gm 04/01/23 20:53 Dextrose 40% Gel 15 Gm Tube PO 03/31/24 20:52 PRN PRN Hypoglycemia Heparin Sodium (Porcine) 5,000 unit 04/01/23 22:00 04/03/23 09:36 Heparin 5,000 Unit/Ml Vial SUBCUT 03/31/24 21:59 5,000 unit Q12HR YESSENIA Administration Heparin Sodium (Porcine) 2,000 unit 04/02/23 09:11 04/02/23 10:38 Heparin 10,000 Unit/10 Ml Vial IV 04/01/24 09:10 2,000 unit PRN PRN Administration Dialysis Heparin Sodium (Porcine) 1,000 unit 04/02/23 10:40 04/02/23 10:47 Heparin 10,000 Unit/10 Ml Vial IV 04/01/24 10:39 1,000 unit PRN PRN Administration Dialysis Dextrose 1,000 mls @ 50 mls/hr 04/02/23 00:45 04/02/23 21:40 5 % Dextrose In Water IV 04/01/24 00:44 Not Given .Q20H YESSENIA Sodium Chloride 1,000 mls @ 0 mls/hr 04/02/23 09:11 04/02/23 10:35 0.9% Sodium Chloride 1,000 Ml MISCELLANE 04/01/24 09:10 999 mls/hr .Q0M PRN Administration Dialysis As Directed Insulin Aspart 0 units 04/01/23 22:00 04/03/23 11:55 Insulin Aspart 300 Units/3 Ml Insuln.Pen SUBCUT 03/31/24 21:59 2 units TID.WM.HS YESSENIA Administration Protocol Ipratropium Macarthur 0.5 mg 04/02/23 09:00 04/03/23 11:19 Ipratropium [place] 0.5 Mg/2.5 Ml Vial.Neb INHALATION 04/01/24 08:59 0.5 mg QID YESSENIA Administration Lidocaine 1 patch 04/01/23 22:00 04/03/23 14:35 Lidocaine 4% Adh..Patch TOPICAL 03/31/24 21:59 1 patch TID YESSENIA Administration Metoprolol Tartrate 25 mg 04/02/23 09:00 04/03/23 09:35 Metoprolol Tartrate 25 Mg Tablet PO 04/01/24 08:59 25 mg DAILY YESSENIA Administration Mexiletine HCl 200 mg 04/01/23 22:00 04/03/23 14:35 Mexiletine 200 Mg Capsule PO 03/31/24 21:59 200 mg Q8HR YESSENIA Administration Pantoprazole Sodium 40 mg 04/02/23 09:00 04/03/23 09:36 Pantoprazole 40 Mg Tablet.Dr PO 04/01/24 08:59 40 mg DAILY YESSENIA Administration Pramipexole Dihydrochloride 0.5 mg 04/01/23 22:00 04/02/23 21:38 Pramipexole 0.5 Mg Tablet PO 03/31/24 21:59 0.5 mg HS YESSENIA Administration Sodium Chloride 0 ml 04/02/23 09:11 04/02/23 10:38 Sodium Chloride 0.9 % 10 Ml Syringe IV-PUSH 04/01/24 09:10 10 ml PRN PRN Administration Flush A&P - Hospitalist Assessment/Plan (1) End-stage renal disease (ESRD): (2) Acute hyperkalemia: (3) Fluid overload: (4) Missed dialysis: (5) Neck pain: (6) Chronic hypoxemic respiratory failure: (7) COPD (chronic obstructive pulmonary disease): Plan Severe right ICA stenosis complicated by suspected TIA -Reports sudden onset diplopia at home. Denies diplopia while here so far. -Continue aspirin and high intensity statins -Continue BP meds - BP controlled so far -CT of the neck indicated severe right ICA stenosis of more than 70%. Around 50% on the left -Vascular has been consulted. Underwent Carotid duplex. Further recs to follow by vascular. -Neurology has been consulted. Plan for brain MRI today. -Still with neck stiffness, seems to be MSK/arthritic related, tizanidine did not help. Will switch to Robaxin TID. -Monitor for any new neuro symptoms ESRD on HD Missed dialysis session -Nephrology following to maintain dialysis schedule -Dialysis sessions as needed given contrast use while investigating her vascularpathologies. Physical debility Functional decline -Seen by PT/OT. Pt agreeable to rehab. CM following. DVT ppx: heparin Discussed with patient and daughter at bedside, all questions answered Documented By: Gary Almaguer MD 04/03/23 15 11 Signed By: <Electronically signed by Gary Almaguer MD> 04/03/23 1463 [facility] Work Phone: 1(738) 587-288902-22-2024 Progress note Author Danny Mcclelland [facility] April 03, 2023 1:52pm Note Date/Time April 03, 2023 1:52pm [facility] [address] [place] [address] Neurology Progress Note Signed Patient: Cinthya Wilson MR#: [id number] : 1945 Acct:[id number] Age/Sex: 78 / F Adm Date: 4 Loc: 3T Room: [address] [place] [address] Type: ADM IN Attending Dr: Gary Almaguer MD Copies to: ~ Date of Service: 04/03/2023 Exam Physical Exam Vital Signs: Temp Pulse Resp BP Pulse Ox O2 Del Method O2 Flow Rate 97.9 F 61 20 148/67 H 100 Nasal Cannula 3 04/03/23 11:20 04/03/23 12:09 04/03/23 12:09 04/03/23 11:20 04/03/23 11:20 04/03/23 11:20 04/03/23 11:20 Objective Vital Signs Vital Signs: Vital Signs - 24 hr 04/02/23 13:48 04/02/23 14:00 04/02/23 14:47 Temperature 96.7 F L 97.5 F L Pulse Rate 68 Pulse Rate [Monitor] 65 78 Respiratory Rate 24 20 Blood Pressure 118/73 Blood Pressure [Right Arm] 83/70 L 124/59 L 02 Sat by Pulse Oximetry 97 93 L Oxygen Delivery Method Nasal Cannula Nasal Cannula Oxygen Flow Rate 4 04/02/23 15:45 04/02/23 15:45 04/02/23 16:00 Temperature Pulse Rate 67 Pulse Rate [Monitor] Respiratory Rate 20 Blood Pressure Blood Pressure [Right Arm] 02 Sat by Pulse Oximetry Oxygen Delivery Method Nasal Cannula Nasal Cannula Oxygen Flow Rate 4 4 04/02/23 16:00 04/02/23 20:00 04/02/23 20:00 Temperature 98.2 F 98.1 F Pulse Rate 68 67 Pulse Rate [Monitor] Respiratory Rate 20 17 Blood Pressure 127/57 L 108/56 L Blood Pressure [Right Arm] 02 Sat by Pulse Oximetry 99 98 Oxygen Delivery Method Nasal Cannula Nasal Cannula Nasal Cannula Oxygen Flow Rate 4 4 4 04/02/23 20:21 04/02/23 20:35 04/02/23 23:32 Temperature Pulse Rate 73 68 71 Pulse Rate [Monitor] Respiratory Rate 20 20 18 Blood Pressure 107/46 L Blood Pressure [Right Arm] 02 Sat by Pulse Oximetry 98 Oxygen Delivery Method Nasal Cannula Oxygen Flow Rate 4 04/03/23 00:00 04/03/23 04:11 04/03/23 07:59 Temperature 98.4 F Pulse Rate 66 Pulse Rate [Monitor] Respiratory Rate 17 Blood Pressure 126/52 L Blood Pressure [Right Arm] 02 Sat by Pulse Oximetry 99 Oxygen Delivery Method Nasal Cannula Nasal Cannula Nasal Cannula Oxygen Flow Rate 4 4 3 04/03/23 08:00 04/03/23 08:11 04/03/23 08:53 Temperature 97.8 F Pulse Rate 62 65 Pulse Rate [Monitor] Respiratory Rate 20 18 Blood Pressure 108/62 Blood Pressure [Right Arm] 02 Sat by Pulse Oximetry 100 Oxygen Delivery Method Nasal Cannula Nasal Cannula Oxygen Flow Rate 3 3 04/03/23 08:53 04/03/23 09:30 04/03/23 11:20 Temperature 97.9 F Pulse Rate 62 Pulse Rate [Monitor] Respiratory Rate 20 Blood Pressure 135/66 148/67 H Blood Pressure [Right Arm] 02 Sat by Pulse Oximetry 100 Oxygen Delivery Method Nasal Cannula Nasal Cannula Oxygen Flow Rate 3 3 04/03/23 11:21 04/03/23 12:09 Temperature Pulse Rate 64 61 Pulse Rate [Monitor] Respiratory Rate 20 20 Blood Pressure Blood Pressure [Right Arm] 02 Sat by Pulse Oximetry Oxygen Delivery Method Oxygen Flow Rate Labs 04/03/23 06:28 04/03/23 06:28 Therapy Recommendations Therapy Recommendations: OT Recommendations OT Recommended Discharge Home with Home Health Location OT Recommended Services at Physical Therapy,Occupational Therapy Discharge Assessment/Plan (1) Diplopia: Plan CONSULT REASON: Diplopia, neck pain SUBJECTIVE: No more episodes of double vision. Did well after dialysis yesterday. Her neckis doing quite a bit better. She still feels some pain extending from the lateral surface of her neck, right greater than left, and up to about the skull base. It hurts with side bending and with neck extension. She can hardly extend her neck but this is a chronic limitation for her, suspected to be related to degenerative changes. EXAMINATION: Sitting bedside in a chair. She remembers me from yesterday. In no distress. No deformities or trauma. Limbs seem well-perfused. No significant edema. Normal work of breathing. Visualized skin is generally intact and without lesions aside from age-related findings. Affect normal. She is alert and conversant. Attention normal. Speech is fluent and nondysarthric. Pupils appear equal. Gaze is conjugate. No extraocular movement abnormalities. No nystagmus. Hearing is normal. Facial strength is normal. Tongue is midline. Neck extension range of motion is limited. Does not look like dystonia. Muscle bulk, tone, and strength are normal. DATA REVIEW: CTA head and neck findings discussed below Head CT was without acute findings Carotid Dopplers suggest greater than 70% stenosis on the right ICA and 50 to 69% stenosis in the left ICA ASSESSMENT: The most concerning symptom to me would be the sudden onset of diplopia, which has resolved and not recurred. She said the images were askew and overlaid on top of each other. But she also seems to think that the diplopia persisted whenshe closed one eye or the other. If this is a monocular diplopia then the issueis refractive and not related to the central nervous system. She seems to be at risk for cerebrovascular disease (vasculopathy, atrial fibrillation, end-stage renal disease, diabetes....). We are attempting to rulethat out. She has severe proximal stenosis of the right internal carotid artery(greater than 70% based on CTA) but I do not suspect any of her presenting symptoms are right cerebral hemispheric anterior circulation in nature. Therefore I do not suspect a symptomatic carotid artery stenosis. The right vertebral artery is either occluded or severely stenotic and does not look consistent with dissection. The neck pain is better but still there. I do not think it is referred pain from vertebral artery dissection. It was described initially in the emergency departments as a neck cramp or even torticollis-like. No cervical dystonia present at the time of my encounter. Seems most likely to be musculoskeletal orrelated to cervical degenerative changes/arthritis. PLAN: Awaiting MR brain pictures if they can be obtained (has AICD that needs cleared) Continue the aspirin 81 mg daily Continue atorvastatin 40 mg daily Documented By: Danny Mcclelland DO 04/03/23 1342 Signed By: <Electronically signed by Danny Mcclelland DO> 04/03/23 1352 [facility] Work Phone: 1(133) 506-240302-22-2024 Progress note Author Geronimo Fofana [facility] April 03, 2023 12:41pm Note Date/Time April 03, 2023 12:42pm [facility] [address] [place] [address] Nephrology Progress Note Signed Patient: Cinthya Wilson MR#: [id number] : 1945 Acct:[id number] Age/Sex: 78 / F Adm Date: 4 Loc: 3T Room: [address] [place] [address] Type: ADM IN Attending Dr: Gary Almaguer MD Copies to: ~ Date of Service: 04/03/2023 Subjective Subjective Narrative: 78-year-old female patient with a past medical history of end-stage renal disease on Friday hemodialysis schedule at [facility], coronary disease status post PCI. COPD, chronic respiratory failure, cardiac arrhythmia status post AICD. Patient presented to the emergency room complaining of right side neck pain and behind right ear pain. Patient missed hemodialysis session Friday because she was not feeling well. Patient presentedto [facility] emergency room for this pain and was given muscle relaxant. CTA of neck was done yesterday which showed Severe right and moderate left proximal internal carotid artery stenosis. 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 Vascular surgeon and neurology service consulted I was consulted for end-stage renal disease care. As I mentioned above patient missed hemodialysis on Friday. Lab today revealed potassium 5.7 mmol/L. Patient was seen today during hemodialysis session. Patient is tolerating session well with stable blood pressure. Ultrafiltration is set at 3 L. Patient continues to have pain behind her right ear. Interval history: Patient was seen and examined in her room. Patient tolerated hemodialysis well yesterday with 3 L ultrafiltration. Patient is complaining of right neck pain with generalized weakness. Vascular surgery evaluated the patient. Still waiting on carotid artery Doppler. Neurology is also following the patient for occluded right basilar artery with diplopia and dizziness Continues to be on nasal cannula 2 L/min. Blood pressure stable. No fever. No nausea no vomiting. No chest pain. No cough Exam Physical Exam Vital Signs: Temp Pulse Resp BP Pulse Ox O2 Del Method O2 Flow Rate 97.9 F 61 20 148/67 H 100 Nasal Cannula 3 04/03/23 11:20 04/03/23 12:09 04/03/23 12:04/03/23 11:20 04/03/23 11:20 04/03/23 11:20 04/03/23 11:20 Narrative: General: No acute distress Head :atraumatic normocephalic Eyes: PERRLA. Neck: no JVD no bruit. Heart: S1-S2. RRR Respiratory: Clear to auscultation. No wheezing. No crackles Abdomen: Soft, positive bowel sounds,no tenderness. Neurology: Awake alert oriented x3. No focal deficits Extremity. No cyanosis. No edema Skin: No skin rash Objective Intake and Output I&O: Intake & Output 03/31/23 04/01/23 04/02/23 04/03/23 23:59 23:59 23:59 23:59 Intake Total 150 / 150 375 / 375 120 / 120 Output Total 3278 / 3278 Balance 150 / 150 -2903 / -2903 120 / 120 Weight 138 lb 3.677 oz 138 lb 14.259 oz 141 lb 15.643 oz Meds and Allergies Meds: Active Medications Acetaminophen (Acetaminophen 325 Mg Tablet) 650 mg PO Q6HR PRN PRN Reason: Pain Scale 1 - 3 or fever Stop: 03/31/24 20:52 Last Admin: 04/03/23 07:49 Dose: 650 mg Albuterol (Albuterol Neb 2.5 Mg/3 Ml Vial.Neb) 0.63 mg INHALATION QID PRN PRN Reason: Shortness Of Breath Stop: 03/31/24 22:11 Aspirin (Aspirin 81 Mg Tablet.) 81 mg PO DAILY [facility] Stop: 04/01/24 08:59 Last Admin: 04/03/23 09:34 Dose: 81 mg Atorvastatin Calcium (Atorvastatin 40 Mg Tablet) 40 mg PO QPM YESSENIA Stop: 03/31/24 20:59 Last Admin: 04/02/23 21:38 Dose: 40 mg Budesonide/Formoterol Fumarate (Budesonide/Formoterol 80-4.5 Mcg 60 Puff/6.9 Gm Hfa.Aer.Ad) 2 puff INHALATION BID YESSENIA Stop: 04/01/24 08:59 Last Admin: 04/03/23 08:52 Dose: 2 puff Buspirone HCl (Buspirone 10 Mg Tablet) 10 mg PO BID [facility] Stop: 03/31/24 20:59 Last Admin: 04/03/23 09:37 Dose: 10 mg Calcium Acetate (Calcium Acetate 667 Mg Capsule) 667 mg PO TID.WITH.MEALS [facility] Stop: 04/01/24 07:59 Last Admin: 04/03/23 09:34 Dose: 667 mg Citalopram Hydrobromide (Citalopram 40 Mg Tablet) 40 mg PO DAILY YESSENIA Stop: 04/01/24 08:59 Last Admin: 04/03/23 09:34 Dose: 40 mg Darbepoetin Theodore (Darbepoetin Theodore In Polysorbat 100 Mcg/Ml Vial) 100 mcg IV- PUSH We@1030 YESSENIA; Protocol Stop: 04/01/24 10:29 Last Admin: 04/02/23 10:38 Dose: 100 mcg Dextrose (Dextrose 50% In Water 25 Gm/50 Ml Syringe) 0 gm IV-PUSH PRN PRN PRN Reason: Hypoglycemia Stop: 03/31/24 20:52 Last Admin: 04/01/23 23:00 Dose: 25 gm Furosemide (Furosemide 20 Mg Tablet) 60 mg PO BID YESSENIA Stop: 03/31/24 20:59 Last Admin: 04/03/23 09:35 Dose: 60 mg Glucose (Dextrose 40% Gel 15 Gm Tube) 0 gm PO PRN PRN PRN Reason: Hypoglycemia Stop: 03/31/24 20:52 Heparin Sodium (Porcine) (Heparin 5,000 Unit/Ml Vial) 5,000 unit SUBCUT Q12HR YESSENIA Stop: 03/31/24 21:59 Last Admin: 04/03/23 09:36 Dose: 5,000 unit Heparin Sodium (Porcine) (Heparin 10,000 Unit/10 Ml Vial) 2,000 unit IV PRN PRN PRN Reason: Dialysis Stop: 04/01/24 09:10 Last Admin: 04/02/23 10:38 Dose: 2,000 unit Heparin Sodium (Porcine) (Heparin 10,000 Unit/10 Ml Vial) 1,000 unit IV PRN PRN PRN Reason: Dialysis Stop: 04/01/24 10:39 Last Admin: 04/02/23 10:47 Dose: 1,000 unit Dextrose (5 % Dextrose In Water) 1,000 mls @ 50 mls/hr IV .Q20H YESSENIA Stop: 04/01/24 00:44 Last Admin: 04/02/23 21:40 Dose: Not Given Sodium Chloride (0.9% Sodium Chloride 1,000 Ml) 1,000 mls @ 0 mls/hr MISCELLANE.Q0M PRN PRN Reason: Dialysis Stop: 04/01/24 09:10 Last Admin: 04/02/23 10:35 Dose: 999 mls/hr Insulin Aspart (Insulin Aspart 300 Units/3 Ml Insuln.Pen) 0 units SUBCUT TID.WM.[facility]; Protocol Stop: 03/31/24 21:59 Last Admin: 04/03/23 11:55 Dose: 2 units Ipratropium Macarthur (Ipratropium [place]ur 0.5 Mg/2.5 Ml Vial.Neb) 0.5 mg INHALATION QID [facility] Stop: 04/01/24 08:59 Last Admin: 04/03/23 11:19 Dose: 0.5 mg Lidocaine (Lidocaine 4% Adh..Patch) 1 patch TOPICAL TID [facility] Stop: 03/31/24 21:59 Last Admin: 04/03/23 09:37 Dose: 1 patch Metoprolol Tartrate (Metoprolol Tartrate 25 Mg Tablet) 25 mg PO DAILY [facility] Stop: 04/01/24 08:59 Last Admin: 04/03/23 09:35 Dose: 25 mg Mexiletine HCl (Mexiletine 200 Mg Capsule) 200 mg PO Q8HR [facility] Stop: 03/31/24 21:59 Last Admin: 04/03/23 06:11 Dose: 200 mg Pantoprazole Sodium (Pantoprazole 40 Mg Tablet.Dr) 40 mg PO DAILY [facility] Stop: 04/01/24 08:59 Last Admin: 04/03/23 09:36 Dose: 40 mg Pramipexole Dihydrochloride (Pramipexole 0.5 Mg Tablet) 0.5 mg PO [facility] Stop: 03/31/24 21:59 Last Admin: 04/02/23 21:38 Dose: 0.5 mg Sodium Chloride (Sodium Chloride 0.9 % 10 Ml Syringe) 0 ml IV-PUSH PRN PRN PRN Reason: Flush Stop: 04/01/24 09:10 Last Admin: 04/02/23 10:38 Dose: 10 ml Tizanidine HCl (Tizanidine 4 Mg Tablet) 4 mg PO TID PRN PRN Reason: neck spasm Stop: 04/01/24 16:08 Last Admin: 04/03/23 07:50 Dose: 4 mg Allergies lisinopril Allergy (Unknown, Verified 04/01/23 14:34) Cough gabapentin Allergy (Verified 04/01/23 14:34) Swelling of Lip/Tongue/Throat Results Labs 04/03/23 06:28 04/03/23 06:28 Labs: 04/03/23 06:28 BUN 38 H D Creatinine 4.28 H D Albumin 3.0 L Radiology Impressions Impressions - last 24 hours: Impressions Carotid Doppler Study 04/03/23 05:00 IMPRESSION: By velocity criteria alone the right internal carotid artery demonstrates 50-69%stenosis. However, the dense calcified plaque formation precludes adequate interrogation of the most severe area of disease and its likely there is greaterthan 70% stenosis in that area given the flow changes beyond the stenosis. 50-69% stenosis is noted in the left internal carotid artery. Neither vertebral artery was visualized. Impression dictated by: David South M.D.04/03/2023 11:27 AM Dictation Location: [place] [address] Any impression(s) listed above is documentation that was entered by the reading physician into a diagnostic report(s) for Cinthya Wilson. I have reviewed the report(s) and am incorporating any findings in the treatment plan of this patient where applicable. A&P - Nephrology Assessment/Plan (1) End-stage renal disease (ESRD): Plan: Patient goes to [facility] on Friday for hemodialysis. Patient missed last Friday hemodialysis session due to sickness. Patient has functioning left upper extremity AV fistula (2) Acute hyperkalemia: Plan: Likely from missing dialysis. Potassium this morning 5.7. Patient was given Lokelma yesterday (3) Anemia: Plan: Hemoglobin 10.7 g deciliter. Patient received Aranesp weekly on Friday (4) Neck pain: Plan: Patient presented with neck pain and behind right ear pain. CTA of neck revealed severe bilateral carotid artery disease. Vascular and neurology services is following Plan - No need for hemodialysis session today. Next Allises session will be tomorrowas per the regular schedule -Potassium level normalized with hemodialysis session -Continue calcium acetate with meals for hyperphosphatemia -Serum sodium level corrected with hemodialysis but remains low at 130. Continue fluid restriction -Continue darbepoetin alpha 100 mcg weekly on Friday. Hemoglobin is below target at 9.2 g deciliter -Vascular surgery team is following the patient for bilateral carotid artery occlusive disease. -Check renal function panel thrice weekly before dialysis adjust order as needed Documented By: Geronimo Fofana MD 04/03/23 1239 Signed By: <Electronically signed by Geronimo Fofana MD> 04/03/23 1241 [facility] Work Phone: 1(966) 909-536702-21-2024 Progress note Author Gary Almaguer [facility] April 02, 2023 4:28pm Note Date/Time April 02, 2023 4:16pm [facility] [address] [place] [address] Hospitalist Progress Note Signed Patient: Cinthya Wilson MR#: [id number] : 1945 Acct:[id number] Age/Sex: 78 / F Adm Date: 4 Loc: Room: [address] [place] [address] Type: ADM IN Attending Dr: Gary Almaguer MD Copies to: ~ Date of Service: 04/02/2023 Subjective Subjective Narrative: Patient was seen and evaluated at bedside. She remained afebrile, hemodynamically stable while here. Underwent dialysis session today per nephrology. She does report her main issue was neck spasms for which she did notgo to her HD as she did not think would be able to sit that long with her neck pain. Today her neck pain slightly better but still there. Neurology and vascular consulted. Denies any chest pain, cough, shortness of breath more thanusual, diarrhea, nausea, vomiting. Exam Physical Exam Vital Signs: Temp Pulse Resp BP Pulse Ox O2 Del Method O2 Flow Rate 97.5 F L 68 20 118/73 93 L Nasal Cannula 4 04/02/23 14:47 04/02/23 14:47 04/02/23 14:47 04/02/23 14:47 04/02/23 14:47 04/02/23 14:47 04/02/23 14:47 Narrative: Const General: cooperative HEENT Normal oropharyngeal mucosa without any ulcers or exudates Neck spasm, slight limitation to tilt her neck to the left. Eyes: Conjunctiva normal Pulmonary Auscultation: Diminished breath sounds, no crackles, no wheezes Cardiovascular Rate: normal rate Rhythm: regular rhythm Heart Sounds: S1 normal, S2 normal and no murmurs GI Inspection: non-distended Palpation: soft, not firm and nontender. No rigidity or rebound. Deferred Neuro General: alert, awake and oriented x3. No obvious new focal deficit Musculoskeletal: normal range of motion Extrem General: no cyanosis, no pedal edema Psych Appearance: appropriate affect. Grossly normal Objective Lab Results 04/02/23 06:22 04/02/23 06:22 Microbiology Results Microbiology 04/01/23 16:45 Nasopharyngeal SARS-CoV-2, Influenza & RSV (PCR) - Final Meds Allergies and Active Meds Allergies lisinopril Allergy (Unknown, Verified 04/01/23 14:34) Cough gabapentin Allergy (Verified 04/01/23 14:34) Swelling of Lip/Tongue/Throat Active Meds: Active Medications Generic Name Dose Route Start Last Admin Trade Name Freq PRN Reason Stop Dose Admin Acetaminophen 650 mg 04/01/23 20:53 Acetaminophen 325 Mg Tablet PO 03/31/24 20:52 Q6HR PRN Pain Scale 1 - 3 or fever Albuterol 0.63 mg 04/01/23 22:12 Albuterol Neb 2.5 Mg/3 Ml Vial.Neb INHALATION 03/31/24 22:11 QID PRN Shortness Of Breath Aspirin 81 mg 04/02/23 09:00 04/02/23 15:08 Aspirin 81 Mg Tablet. PO 04/01/24 08:59 81 mg DAILY YESSENIA Administration Atorvastatin Calcium 40 mg 04/01/23 21:00 04/02/23 00:54 Atorvastatin 40 Mg Tablet PO 03/31/24 20:59 Not Given QPM YESSENIA Budesonide/Formoterol Fumarate 2 puff 04/02/23 09:00 04/02/23 08:02 Budesonide/Formoterol 80-4.5 Mcg 60 Puff/6.9 Gm Hfa.Aer.Ad INHALATION 04/01/24 08:59 2 puff BID YESSENIA Administration Buspirone HCl 10 mg 04/01/23 21:00 04/02/23 15:09 Buspirone 10 Mg Tablet PO 03/31/24 20:59 10 mg BID YESSENIA Administration Calcium Acetate 667 mg 04/02/23 08:00 04/02/23 08:44 Calcium Acetate 667 Mg Capsule PO 04/01/24 07:59 667 mg TID.WITH.MEALS YESSENIA Administration Citalopram Hydrobromide 40 mg 04/02/23 09:00 04/02/23 15:08 Citalopram 40 Mg Tablet PO 04/01/24 08:59 40 mg DAILY YESSENIA Administration Darbepoetin Theodore 100 mcg 04/02/23 10:30 04/02/23 10:38 Darbepoetin Theodore In Polysorbat 100 Mcg/Ml Vial IV-PUSH 04/01/24 10:29 100 mcg We@1030 YESSENIA Administration Protocol Dextrose 0 gm 04/01/23 20:53 04/01/23 23:00 Dextrose 50% In Water 25 Gm/50 Ml Syringe IV-PUSH 03/31/24 20:52 25 gm PRN PRN Administration Hypoglycemia Furosemide 60 mg 04/01/23 21:00 04/02/23 15:08 Furosemide 20 Mg Tablet PO 03/31/24 20:59 60 mg BID YESSENIA Administration Glucose 0 gm 04/01/23 20:53 Dextrose 40% Gel 15 Gm Tube PO 03/31/24 20:52 PRN PRN Hypoglycemia Heparin Sodium (Porcine) 5,000 unit 04/01/23 22:00 04/02/23 12:44 Heparin 5,000 Unit/Ml Vial SUBCUT 03/31/24 21:59 Not Given Q12HR YESSENIA Heparin Sodium (Porcine) 2,000 unit 04/02/23 09:11 04/02/23 10:38 Heparin 10,000 Unit/10 Ml Vial IV 04/01/24 09:10 2,000 unit PRN PRN Administration Dialysis Heparin Sodium (Porcine) 1,000 unit 04/02/23 10:40 04/02/23 10:47 Heparin 10,000 Unit/10 Ml Vial IV 04/01/24 10:39 1,000 unit PRN PRN Administration Dialysis Dextrose 1,000 mls @ 50 mls/hr 04/02/23 00:45 04/02/23 01:17 5 % Dextrose In Water IV 04/01/24 00:44 50 mls/hr .Q20H YESSENIA Administration Sodium Chloride 1,000 mls @ 0 mls/hr 04/02/23 09:11 04/02/23 10:35 0.9% Sodium Chloride 1,000 Ml MISCELLANE 04/01/24 09:10 999 mls/hr .Q0M PRN Administration Dialysis As Directed Insulin Aspart 0 units 04/01/23 22:00 04/02/23 12:45 Insulin Aspart 300 Units/3 Ml Insuln.Pen SUBCUT 03/31/24 21:59 Not Given TID.WM.HS [facility] Protocol Ipratropium [place] 0.5 mg 04/02/23 09:00 04/02/23 15:45 Ipratropium [place] 0.5 Mg/2.5 Ml Vial.Neb INHALATION 04/01/24 08:59 0.5 mg QID YESSENIA Administration Lidocaine 1 patch 04/01/23 22:00 04/02/23 14:42 Lidocaine 4% Adh..Patch TOPICAL 03/31/24 21:59 1 patch TID YESSENIA Administration Metoprolol Tartrate 25 mg 04/02/23 09:00 04/02/23 15:08 Metoprolol Tartrate 25 Mg Tablet PO 04/01/24 08:59 25 mg DAILY YESSENIA Administration Mexiletine HCl 200 mg 04/01/23 22:00 04/02/23 06:39 Mexiletine 200 Mg Capsule PO 03/31/24 21:59 200 mg Q8HR YESSENIA Administration Pantoprazole Sodium 40 mg 04/02/23 09:00 04/02/23 15:08 Pantoprazole 40 Mg Tablet. PO 04/01/24 08:59 40 mg DAILY YESSENIA Administration Pramipexole Dihydrochloride 0.5 mg 04/01/23 22:00 04/02/23 00:55 Pramipexole 0.5 Mg Tablet PO 03/31/24 21:59 Not Given [facility] Sodium Chloride 0 ml 04/02/23 09:11 04/02/23 10:38 Sodium Chloride 0.9 % 10 Ml Syringe IV-PUSH 04/01/24 09:10 10 ml PRN PRN Administration Flush Tizanidine HCl 4 mg 04/02/23 16:09 Tizanidine 4 Mg Tablet PO 04/01/24 16:08 TID PRN neck spasm A&P - Hospitalist Assessment/Plan (1) End-stage renal disease (ESRD): (2) Acute hyperkalemia: (3) Fluid overload: (4) Missed dialysis: (5) Neck pain: (6) Chronic hypoxemic respiratory failure: (7) COPD (chronic obstructive pulmonary disease): Plan Severe right ICA stenosis complicated by suspected TIA -Reports sudden onset diplopia at home, now its intermittent per patient report. -Continue aspirin and high intensity statins -Continue BP meds - BP controlled so far -CT of the neck indicated severe right ICA stenosis of more than 70%. Around 50% on the left -Vascular has been consulted. Plan for carotid duplex study for comparison. -Neurology has been consulted. Plan for brain MRI. -Added trial of Zanaflex as needed for her neck cramps/stiffness to see if that helps -Repeat labs in am, optimize electrolytes -Monitor for any new neuro symptoms ESRD on HD Missed dialysis session -Nephrology following to maintain dialysis schedule -Dialysis sessions as needed given contrast use while investigating her vascularpathologies. DVT ppx: heparin Discussed with patient at bedside, all questions answered Documented By: Gary Almaguer MD 04/02/23 16 12 Signed By: <Electronically signed by Gary Almaguer MD> 04/02/23 9937 [facility] Work Phone: 1(326) 667-522602-21-2024 Consult note Author Danny Mcclelland [facility] April 02, 2023 2:20pm Note Date/Time April 02, 2023 2:20pm [facility] [address] [place] [address] Neurology Consult Note Signed Patient: Cinthya Wilson MR#: [id number] : 1945 Acct:[id number] Age/Sex: 78 / F Adm Date: 4 Loc: Room: [address] [place] [address] Type: ADM IN Attending Dr: Gary Almaguer MD Copies to: DO Lily Robin II, MD Obaydah M Daromar, MD~ HPI Consult Date: 04/02/23 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: Danny Mcclelland DO [facility] Medical History COPD (chronic obstructive pulmonary disease) Diabetes mellitus with insulin therapy Chronic combined systolic and diastolic CHF (congestive heart failure) Secondary hyperparathyroidism Anemia of renal disease Benign hypertension with end-stage renal disease Type 2 diabetes mellitus with diabetic chronic kidney disease Hyponatremia AV fistula left ESRD (end stage renal disease) Pneumonia Polymyalgia GERD (gastroesophageal reflux disease) Anxiety and depression Skin cancer mohs procedure for removal Neuropathy right thigh and feet Sleep apnea Irregular heart rhythm prior to stent placement per pt report Neck pain with history of cervical spinal surgery Cataract had bilateral PHACO Chronic back pain Arthritis CAD (coronary artery disease) Cervical spinal stenosis Anxiety Hyperlipidemia HTN (hypertension) LVH (left ventricular hypertrophy) Diabetes Insomnia Lumbosacral spondylolysis Anemia CHF (congestive heart failure) Chronic kidney disease Surgical History History of shoulder surgery rt shoulder H/O heart artery stent History of back surgery lumbar History of carpal tunnel release bilateral History of appendectomy History of total abdominal hysterectomy and bilateral salpingo-oophorectomy History of coronary angioplasty with insertion of stent History of x2 History of tonsillectomy History of D&C Family History Father Heart disease Cancer Mother Cancer Diabetes Brother Cancer Legacy FamHx Relation: Brother(s); Legacy FamHx Problem: Diagnosed with Cancer Father Cancer Legacy FamHx Problem: Diagnosed with Cancer Family/Other Legacy FamHx Problem: 1 brother Mother Cancer Legacy FamHx Problem: Diagnosed with Cancer Social History Smoking Status: Never smoker Substance Use Type: None Social History Comments: adult son Meds Medications and Allergies Allergies lisinopril Allergy (Unknown, Verified 04/01/23 14:34) Cough gabapentin Allergy (Verified 04/01/23 14:34) Swelling of Lip/Tongue/Throat Home Medications atorvastatin 40 mg tablet 40 mg PO QPM 11/19/16 [History Confirmed 04/01/23] multivitamin 1 tab PO DAILY 09/07/19 [History Confirmed 04/01/23] aspirin 81 mg tablet,delayed release 81 mg PO DAILY 11/25/19 [History Confirmed 04/01/23] cholecalciferol (vitamin D3) 25 mcg (1,000 unit) tablet (Vitamin D3) 25 mcg PO DAILY 11/25/19 [History Confirmed 04/01/23] citalopram 40 mg tablet 40 mg PO DAILY 11/25/19 [History Confirmed 04/01/23] albuterol sulfate 0.63 mg/3 mL solution for nebulization 0.63 mg inhalation QID PRN SOB 06/26/21 [History Confirmed 04/01/23] docusate sodium 100 mg capsule 100 mg PO BID #60 caps 11/20/21 [Rx Confirmed 04/01/23] pen needle, diabetic 32 gauge x 5/32 (BD Ultra-Fine Lexis Pen Needle) #100 ea 11/20/21 [Rx Confirmed 12/13/22] calcium acetate(phosphat bind) 667 mg capsule 667 mg PO TID.WITH.MEALS 60 days #240 caps 02/26/22 [Rx Confirmed 04/01/23] pantoprazole 40 mg tablet,delayed release 40 mg PO DAILY 05/17/22 [History Confirmed 04/01/23] diclofenac sodium 1 % topical gel (Voltaren Arthritis Pain) 4 g topical QID #0 grams 10/31/22 [Rx Confirmed 04/01/23] furosemide 20 mg tablet 60 mg (3 x 20 mg) PO BID 30 days #180 tabs 10/31/22 [Rx Confirmed 04/01/23] fluticasone fur. 100 mcg-umeclid 62.5 mcg-vilant 25 mcg inhalat.powder (Trelegy Ellipta) 1 ea inhalation DAILY 12/06/22 [History Confirmed 04/01/23] oxycodone-acetaminophen 5 mg-325 mg tablet 1 tab PO Q4-6H PRN Pain 12/06/22 [History Confirmed 04/01/23] pramipexole 0.5 mg tablet 0.5 mg PO HS 12/06/22 [History Confirmed 04/01/23] darbepoetin theodore in polysorbat 60 mcg/mL in polysorbate injection (Aranesp) 80 mcg IV QWEEK 12/29/22 [History Confirmed 04/01/23] fluticasone fur. 100 mcg-umeclid 62.5 mcg-vilant 25 mcg inhalat.powder (Trelegy Ellipta) 1 inh inhalation Q24H 12/29/22 [History Confirmed 04/01/23] insulin lispro 100 unit/mL subcutaneous pen (Humalog KwikPen (U-100) Insulin) 1 sliding scale dose subcut ACHS 12/29/22 [History Confirmed 04/01/23] ondansetron 4 mg disintegrating tablet 4 mg PO Q6H PRN Nausea 12/29/22 [History Confirmed 04/01/23] pramipexole 0.5 mg tablet (Mirapex) 0.5 mg PO QHS 12/29/22 [History Confirmed 04/01/23] acetaminophen 650 mg tablet,extended release (Arthritis Pain Reliever) 650 mg POQ12H PRN pain 03/05/23 [History Confirmed 04/01/23] buspirone 10 mg tablet 10 mg PO BID 03/05/23 [History Confirmed 04/01/23] metoprolol tartrate 25 mg tablet 25 mg PO DAILY 03/05/23 [History Confirmed 04/01/23] mexiletine 200 mg capsule 200 mg PO Q8HR 30 days #90 caps 03/07/23 [Rx Confirmed 04/01/23] pramipexole 0.5 mg tablet 0.5 mg PO QHS 04/01/23 [History Confirmed 04/01/23] pregabalin 50 mg capsule (Lyrica) 50 mg PO DAILY 04/01/23 [History Confirmed 04/01/23] Exam Physical Exam Vital Signs: Temp Pulse Resp BP Pulse Ox O2 Del Method O2 Flow Rate 96.7 F L 78 24 124/59 L 97 Nasal Cannula 4 04/02/23 14:00 04/02/23 14:00 04/02/23 14:00 04/02/23 14:00 04/02/23 14:00 04/02/23 14:00 04/02/23 09:50 Results Laboratory Findings 04/02/23 06:22 04/02/23 06:22 Diagnostic Findings Imaging/Impressions: ITS Impressions Chest X-Ray 04/01/23 13:00 IMPRESSION: CARDIOMEGALY WITH MINOR INTERSTITIAL CHANGE. THIS COULD BE FAILURE AND/OR VOLUME OVERLOAD. CONTINUED BIBASILAR PLEURAL-PARENCHYMAL OPACITIES, GREATER ON THE RIGHT. Impression dictated by: Dianna Pedro M.D.04/01/2023 2:28 PM Dictation Location: [facility] Head CT 04/01/23 17:06 IMPRESSION: ATROPHY AND CHRONIC MICROVASCULAR CHANGES. NO DEFINITE ACUTE INTRACRANIAL ABNORMALITY WITHIN LIMITS OF MOTION. Impression dictated by: Dianna Pedro M.D.04/01/2023 6:10 PM Dictation Location: [facility] Head CTA 04/01/23 20:50 IMPRESSION: CAROTID ARTERY DISEASE WITH SEVERE RIGHT AND MODERATE LEFT PROXIMAL INTERNAL CAROTID ARTERY STENOSIS. THERE IS ALSO MILD TO MODERATE NARROWING AT THE CAROTIDSIPHONS. RIGHT VERTEBRAL ARTERY OCCLUSION AND/OR SEVERE STENOSIS. LEFT V4 PLAQUE WITH MODERATE ASSOCIATED LUMINAL NARROWING. Impression dictated by: Dianna Pedro M.D.04/02/2023 7:35 AM Dictation Location: [place] [address] Assessment/Plan (1) Diplopia: Plan Subjective: Patient is a 78-year-old female with a history of ESRD on hemodialysis, coronary disease status post PCI, chronic respiratory failure on 3L oxygen, COPD, hyperlipidemia, hypertension, CHF, ventricular arrhythmia statuspost AICD who presented with right-sided neck pain. Patient claims that his neck pain started on Friday and was associated with tenderness. The patient reportedly went to the [facility] ER. Patient was reportedly given muscle relaxant due to suspected muscle spasm and subsequently sent home. Patient reportedly had persistent pain on Friday and missed routine hemodialysis. Patient reportedly also had generalized weakness and episodes of double vision/blurriness. Patient presented to [facility] ER 04/01. Reportedly no focal motor deficits noticed, reported tenderness to the lateral right neck. CTA of head and neck was done and reportedly showed carotidartery disease with severe right and moderate left proximal internal carotid artery stenosis. Mild to moderate narrowing of the carotid siphons. Right vertebral artery occlusion and/for severe stenosis. Left V4 plaque with moderate associated luminal narrowing. Patient on aspirin and statin, neurologyand vascular surgery consulted with concern for severe ICA stenosis and symptoms. Patient examined in hemodialysis, patient claims that her generalized weakness is now resolved. Patient reports that she still sees double vision when she stands up. Patient endorses continued right-sided neck pain. Patient has a history of stroke or atrial fibrillation. Patient denies a history of smoking or surgical procedures to her neck. Endorses confusion, not on vertigo or dizziness, paresthesia of lower extremities. Patient claims paresthesia of her lower extremities is normal for her due to neuropathy. Denies fever, chills, fatigue. Denies chest pain, palpations, shortness of breath. Denies cough, pleuritic pain, hemoptysis. Endorses right ear pain, denies discharge or loss of hearing. Denies dysphagia. Denies nausea, vomiting, diarrhea. Denies loss of range of motion. Objective: General: Pleasant, patient in no acute distress Skin: No jaundice Eyes: No scleral icterus Mouth: Oral mucosa pink and moist CV: Regular rate and rhythm. No murmurs, gallops or rubs Pulm: CTA bilaterally. No rhonchi or crackles Neuro: Patient appeared mildly confused, had to be reoriented to conversation attimes. Sensation to light touch in right upper extremity intact. Sensation andlower extremity to light touch severely diminished. DTR deferred due to hemodialysis. Visual rajput intact in all 4 quadrants. Extraocular motion intact. Facial symmetry observed. Tongue midline, equal protrusion left and right. Pupillary light reflex appears slightly diminished on left side comparedto right. MSK: Movement intact lower extremity bilaterally, right upper extremity. Left extremity deferred due to hemodialysis. Psych: Mood and affect appropriate Assessment/plan: Patient is a 78-year-old female with history of ESRD on hemodialysis, coronary disease status post PCI, ventricular arrhythmias status post AICD, hyperlipidemia, hypertension with generalized weakness, acute neck pain, and visual disturbance. Following are suspected: 1.) Severe right ICA stenosis complicated by suspected TIA Patient has CTA head and neck showing carotid artery disease with severe right and moderate left proximal internal carotid artery stenosis with mild to moderate narrowing of the carotid siphons. There is also right vertebral arteryocclusion and/for severe stenosis, left V4 plaque with moderate associated luminal narrowing. - Continue aspirin and statin daily - Pending vascular consult - Consider revascularization depending on life expectancy and morbidity - Consider medical management if contraindicated to enterectomy with mono antiplatelet therapy of aspirin or clinical, management of modifiable risk factors for ASCVD. Attestation Statement I endorse the portions of this note created by Saurabh Cortez. I also saw and examined the patient. The most concerning symptom to me would be the sudden onset of diplopia. She says it is intermittent now. She said the images are askew and overlaid on top of each other. But she also seems to think that the diplopia persisted when sheclosed one eye or the other. If this is a monocular diplopia then the issue is refractive and not related to the central nervous system. She seems to be at risk for cerebrovascular disease (vasculopathy, atrial fibrillation, end-stage renal disease, diabetes....). We are attempting to rulethat out. She has severe proximal stenosis of the right internal carotid artery(greater than 70% based on CTA) but I do not suspect any of her presenting symptoms are right cerebral hemispheric anterior circulation in nature. Therefore I do not suspect a symptomatic carotid artery stenosis. The right vertebral artery is either occluded or severely stenotic and does not look consistent with dissection. The neck pain is better but still there. I do not think it is referred pain from vertebral artery dissection. It was described initially in the emergency departments as a neck cramp or even torticollis-like. No cervical dystonia present at the time of my encounter. Documented By: Danny Mcclelland DO 04/02/23 141 Signed By: <Electronically signed by Danny Mcclelland DO> 04/02/23 1420 [facility] Work Phone: 1(680) 197-878202-21-2024 Consult note Author Geronimo Fofana [facility] April 02, 2023 12:34pm Note Date/Time April 02, 2023 12:34pm [facility] [address] [place] [address] Nephrology Consult Note Signed Patient: Cinthya Wilson MR#: [id number] : 1945 Acct:[id number] Age/Sex: 78 / F Adm Date: 4 Loc: Room: [address] [place] [address] Type: ADM IN Attending Dr: Gary Almaguer MD Copies to: MD Lily Allen II, MD Obaydah M Daromar, MD~ Providers Consult Date: 04/02/23 Requesting Provider: Gary Almaguer MD Primary Care Provider: Lily Aldrich II, MD HPI Reason for Consult: End-stage renal disease patient History of Present Illness: 78-year-old female patient with a past medical history of end-stage renal disease on Friday hemodialysis schedule at [facility], coronary disease status post PCI. COPD, chronic respiratory failure, cardiac arrhythmia status post AICD. Patient presented to the emergency room complaining of right side neck pain and behind right ear pain. Patient missed hemodialysis session Friday because she was not feeling well. Patient [facility] emergency room for this pain and was given muscle relaxant. CTA of neck was done yesterday which showed Severe right and moderate left proximal internal carotid artery stenosis. 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 Vascular surgeon and neurology service consulted I was consulted for end-stage renal disease care. As I mentioned above patient missed hemodialysis on Friday. Lab today revealed potassium 5.7 mmol/L. Patient was seen today during hemodialysis session. Patient is tolerating session well with stable blood pressure. Ultrafiltration is set at 3 L. Patient continues to have pain behind her right ear. Review of Systems Review of Systems All other systems reviewed & are negative unless noted below or in HPI [facility] Medical History COPD (chronic obstructive pulmonary disease) Diabetes mellitus with insulin therapy Chronic combined systolic and diastolic CHF (congestive heart failure) Secondary hyperparathyroidism Anemia of renal disease Benign hypertension with end-stage renal disease Type 2 diabetes mellitus with diabetic chronic kidney disease Hyponatremia AV fistula left ESRD (end stage renal disease) Pneumonia Polymyalgia GERD (gastroesophageal reflux disease) Anxiety and depression Skin cancer mohs procedure for removal Neuropathy right thigh and feet Sleep apnea Irregular heart rhythm prior to stent placement per pt report Neck pain with history of cervical spinal surgery Cataract had bilateral PHACO Chronic back pain Arthritis CAD (coronary artery disease) Cervical spinal stenosis Anxiety Hyperlipidemia HTN (hypertension) LVH (left ventricular hypertrophy) Diabetes Insomnia Lumbosacral spondylolysis Anemia CHF (congestive heart failure) Chronic kidney disease Surgical History History of shoulder surgery rt shoulder H/O heart artery stent History of back surgery lumbar History of carpal tunnel release bilateral History of appendectomy History of total abdominal hysterectomy and bilateral salpingo-oophorectomy History of coronary angioplasty with insertion of stent History of x2 History of tonsillectomy History of D&C Family History Father Heart disease Cancer Mother Cancer Diabetes Brother Cancer Legacy FamHx Relation: Brother(s); Legacy FamHx Problem: Diagnosed with Cancer Father Cancer Legacy FamHx Problem: Diagnosed with Cancer Family/Other Legacy FamHx Problem: 1 brother Mother Cancer Legacy FamHx Problem: Diagnosed with Cancer Social History Smoking Status: Never smoker Substance Use Type: None Social History Comments: adult son Meds Medications & Allergies Allergies lisinopril Allergy (Unknown, Verified 04/01/23 14:34) Cough gabapentin Allergy (Verified 04/01/23 14:34) Swelling of Lip/Tongue/Throat Home Medications atorvastatin 40 mg tablet 40 mg PO QPM 11/19/16 [History Confirmed 04/01/23] multivitamin 1 tab PO DAILY 09/07/19 [History Confirmed 04/01/23] aspirin 81 mg tablet,delayed release 81 mg PO DAILY 11/25/19 [History Confirmed 04/01/23] cholecalciferol (vitamin D3) 25 mcg (1,000 unit) tablet (Vitamin D3) 25 mcg PO DAILY 11/25/19 [History Confirmed 04/01/23] citalopram 40 mg tablet 40 mg PO DAILY 11/25/19 [History Confirmed 04/01/23] albuterol sulfate 0.63 mg/3 mL solution for nebulization 0.63 mg inhalation QID PRN SOB 06/26/21 [History Confirmed 04/01/23] docusate sodium 100 mg capsule 100 mg PO BID #60 caps 11/20/21 [Rx Confirmed 04/01/23] pen needle, diabetic 32 gauge x 5/32 (BD Ultra-Fine Lexis Pen Needle) #100 ea 11/20/21 [Rx Confirmed 12/13/22] calcium acetate(phosphat bind) 667 mg capsule 667 mg PO TID.WITH.MEALS 60 days #240 caps 02/26/22 [Rx Confirmed 04/01/23] pantoprazole 40 mg tablet,delayed release 40 mg PO DAILY 05/17/22 [History Confirmed 04/01/23] diclofenac sodium 1 % topical gel (Voltaren Arthritis Pain) 4 g topical QID #0 grams 10/31/22 [Rx Confirmed 04/01/23] furosemide 20 mg tablet 60 mg (3 x 20 mg) PO BID 30 days #180 tabs 10/31/22 [Rx Confirmed 04/01/23] fluticasone fur. 100 mcg-umeclid 62.5 mcg-vilant 25 mcg inhalat.powder (Trelegy Ellipta) 1 ea inhalation DAILY 12/06/22 [History Confirmed 04/01/23] oxycodone-acetaminophen 5 mg-325 mg tablet 1 tab PO Q4-6H PRN Pain 12/06/22 [History Confirmed 04/01/23] pramipexole 0.5 mg tablet 0.5 mg PO HS 12/06/22 [History Confirmed 04/01/23] darbepoetin theodore in polysorbat 60 mcg/mL in polysorbate injection (Aranesp) 80 mcg IV QWEEK 12/29/22 [History Confirmed 04/01/23] fluticasone fur. 100 mcg-umeclid 62.5 mcg-vilant 25 mcg inhalat.powder (Trelegy Ellipta) 1 inh inhalation Q24H 12/29/22 [History Confirmed 04/01/23] insulin lispro 100 unit/mL subcutaneous pen (Humalog KwikPen (U-100) Insulin) 1 sliding scale dose subcut ACHS 12/29/22 [History Confirmed 04/01/23] ondansetron 4 mg disintegrating tablet 4 mg PO Q6H PRN Nausea 12/29/22 [History Confirmed 04/01/23] pramipexole 0.5 mg tablet (Mirapex) 0.5 mg PO QHS 12/29/22 [History Confirmed 04/01/23] acetaminophen 650 mg tablet,extended release (Arthritis Pain Reliever) 650 mg POQ12H PRN pain 03/05/23 [History Confirmed 04/01/23] buspirone 10 mg tablet 10 mg PO BID 03/05/23 [History Confirmed 04/01/23] metoprolol tartrate 25 mg tablet 25 mg PO DAILY 03/05/23 [History Confirmed 04/01/23] mexiletine 200 mg capsule 200 mg PO Q8HR 30 days #90 caps 03/07/23 [Rx Confirmed 04/01/23] pramipexole 0.5 mg tablet 0.5 mg PO QHS 04/01/23 [History Confirmed 04/01/23] pregabalin 50 mg capsule (Lyrica) 50 mg PO DAILY 04/01/23 [History Confirmed 04/01/23] Active Medications: Active Medications Acetaminophen (Acetaminophen 325 Mg Tablet) 650 mg PO Q6HR PRN PRN Reason: Pain Scale 1 - 3 or fever Stop: 03/31/24 20:52 Albuterol (Albuterol Neb 2.5 Mg/3 Ml Vial.Neb) 0.63 mg INHALATION QID PRN PRN Reason: Shortness Of Breath Stop: 03/31/24 22:11 Aspirin (Aspirin 81 Mg Tablet.) 81 mg PO DAILY [facility] Stop: 04/01/24 08:59 Atorvastatin Calcium (Atorvastatin 40 Mg Tablet) 40 mg PO QPM [facility]ESS[facility] Stop: 03/31/24 20:59 Last Admin: 04/02/23 00:54 Dose: Not Given Budesonide/Formoterol Fumarate (Budesonide/Formoterol 80-4.5 Mcg 60 Puff/6.9 Gm Hfa.Aer.Ad) 2 puff INHALATION BID [facility] Stop: 04/01/24 08:59 Last Admin: 04/02/23 08:02 Dose: 2 puff Buspirone HCl (Buspirone 10 Mg Tablet) 10 mg PO BID [facility] Stop: 03/31/24 20:59 Last Admin: 04/02/23 00:54 Dose: Not Given Calcium Acetate (Calcium Acetate 667 Mg Capsule) 667 mg PO TID.WITH.MEALS [facility] Stop: 04/01/24 07:59 Last Admin: 04/02/23 08:44 Dose: 667 mg Citalopram Hydrobromide (Citalopram 40 Mg Tablet) 40 mg PO DAILY [facility] Stop: 04/01/24 08:59 Darbepoetin Theodore (Darbepoetin Theodore In Polysorbat 100 Mcg/Ml Vial) 100 mcg IV- PUSH We@1030 YESSENIA; Protocol Stop: 04/01/24 10:29 Last Admin: 04/02/23 10:38 Dose: 100 mcg Dextrose (Dextrose 50% In Water 25 Gm/50 Ml Syringe) 0 gm IV-PUSH PRN PRN PRN Reason: Hypoglycemia Stop: 03/31/24 20:52 Last Admin: 04/01/23 23:00 Dose: 25 gm Furosemide (Furosemide 20 Mg Tablet) 60 mg PO BID [facility] Stop: 03/31/24 20:59 Last Admin: 04/02/23 00:54 Dose: Not Given Glucose (Dextrose 40% Gel 15 Gm Tube) 0 gm PO PRN PRN PRN Reason: Hypoglycemia Stop: 03/31/24 20:52 Heparin Sodium (Porcine) (Heparin 5,000 Unit/Ml Vial) 5,000 unit SUBCUT Q12HR [facility] Stop: 03/31/24 21:59 Last Admin: 04/02/23 01:17 Dose: 5,000 unit Heparin Sodium (Porcine) (Heparin 10,000 Unit/10 Ml Vial) 2,000 unit IV PRN PRN PRN Reason: Dialysis Stop: 04/01/24 09:10 Last Admin: 04/02/23 10:38 Dose: 2,000 unit Heparin Sodium (Porcine) (Heparin 10,000 Unit/10 Ml Vial) 1,000 unit IV PRN PRN PRN Reason: Dialysis Stop: 04/01/24 10:39 Last Admin: 04/02/23 10:47 Dose: 1,000 unit Dextrose (5 % Dextrose In Water) 1,000 mls @ 50 mls/hr IV .Q20H [facility] Stop: 04/01/24 00:44 Last Admin: 04/02/23 01:17 Dose: 50 mls/hr Sodium Chloride (0.9% Sodium Chloride 1,000 Ml) 1,000 mls @ 0 mls/hr MISCELLANE.Q0M PRN PRN Reason: Dialysis Stop: 04/01/24 09:10 Last Admin: 04/02/23 10:35 Dose: 999 mls/hr Insulin Aspart (Insulin Aspart 300 Units/3 Ml Insuln.Pen) 0 units SUBCUT TID.[facility]; Protocol Stop: 03/31/24 21:59 Last Admin: 04/01/23 23:15 Dose: Not Given Ipratropium Macarthur (Ipratropium Macarthur 0.5 Mg/2.5 Ml Vial.Neb) 0.5 mg INHALATION QID [facility] Stop: 04/01/24 08:59 Last Admin: 04/02/23 11:55 Dose: Not Given Lidocaine (Lidocaine 4% Adh..Patch) 1 patch TOPICAL TID [facility] Stop: 03/31/24 21:59 Last Admin: 04/02/23 00:54 Dose: Not Given Metoprolol Tartrate (Metoprolol Tartrate 25 Mg Tablet) 25 mg PO DAILY [facility] Stop: 04/01/24 08:59 Mexiletine HCl (Mexiletine 200 Mg Capsule) 200 mg PO Q8HR [facility] Stop: 03/31/24 21:59 Last Admin: 04/02/23 06:39 Dose: 200 mg Pantoprazole Sodium (Pantoprazole 40 Mg Tablet.Dr) 40 mg PO DAILY [facility] Stop: 04/01/24 08:59 Pramipexole Dihydrochloride (Pramipexole 0.5 Mg Tablet) 0.5 mg PO [facility] Stop: 03/31/24 21:59 Last Admin: 04/02/23 00:55 Dose: Not Given Sodium Chloride (Sodium Chloride 0.9 % 10 Ml Syringe) 0 ml IV-PUSH PRN PRN PRN Reason: Flush Stop: 04/01/24 09:10 Last Admin: 04/02/23 10:38 Dose: 10 ml Exam Physical Exam Vital Signs: Temp Pulse Resp BP Pulse Ox O2 Del Method O2 Flow Rate 97.8 F 71 16 105/57 L 96 Nasal Cannula 4 04/02/23 09:50 04/02/23 12:00 04/02/23 09:50 04/02/23 12:00 04/02/23 09:50 04/02/23 09:50 04/02/23 09:50 Narrative: General: No acute distress Head :atraumatic normocephalic Eyes: PERRLA. Neck: no JVD no bruit. Heart: S1-S2. RRR Respiratory: Clear to auscultation. No wheezing. No crackles Abdomen: Soft, positive bowel sounds,no tenderness. Neurology: Awake alert oriented x3. No focal deficits Extremity. No cyanosis. No edema Skin: No skin rash Results Labs 04/02/23 06:22 04/02/23 06:22 Labs: 04/01/23 04/02/23 17:00 06:22 BUN 69 H 70 H Creatinine 6.30 H 6.31 H Albumin 3.5 Radiology Impressions Impressions - last 24 hours: Impressions Chest X-Ray 04/01/23 13:00 IMPRESSION: CARDIOMEGALY WITH MINOR INTERSTITIAL CHANGE. THIS COULD BE FAILURE AND/OR VOLUME OVERLOAD. CONTINUED BIBASILAR PLEURAL-PARENCHYMAL OPACITIES, GREATER ON THE RIGHT. Impression dictated by: Dianna Pedro M.D.04/01/2023 2:28 PM Dictation Location: [place] [address] 04/01/23 17:06 IMPRESSION: ATROPHY AND CHRONIC MICROVASCULAR CHANGES. NO DEFINITE ACUTE INTRACRANIAL ABNORMALITY WITHIN LIMITS OF MOTION. Impression dictated by: Dianna Pedro M.D.04/01/2023 6:10 PM [facility]ation [facility] 04/01/23 20:50 IMPRESSION: CAROTID ARTERY DISEASE WITH SEVERE RIGHT AND MODERATE LEFT PROXIMAL INTERNAL CAROTID ARTERY STENOSIS. THERE IS ALSO MILD TO MODERATE NARROWING AT THE CAROTIDSIPHONS. RIGHT VERTEBRAL ARTERY OCCLUSION AND/OR SEVERE STENOSIS. LEFT V4 PLAQUE WITH MODERATE ASSOCIATED LUMINAL NARROWING. Impression dictated by: Dianna Pedro M.D.04/02/2023 7:35 AM Dictation Location: [place] [address] Any impression(s) listed above is documentation that was entered by the reading physician into a diagnostic report(s) for Cinthya Wilson. I have reviewed the report(s) and am incorporating any findings in the treatment plan of this patient where applicable. A&P - Nephrology Assessment/Plan (1) End-stage renal disease (ESRD): Plan: Patient goes to [facility] on Friday for hemodialysis. Patient missed last Friday hemodialysis session due to sickness. Patient has functioning left upper extremity AV fistula (2) Acute hyperkalemia: Plan: Likely from missing dialysis. Potassium this morning 5.7. Patient was given Lokelma yesterday (3) Anemia: Plan: Hemoglobin 10.7 g deciliter. Patient received Aranesp weekly on Friday (4) Neck pain: Plan: Patient presented with neck pain and behind right ear pain. CTA of neck revealed severe bilateral carotid artery disease. Vascular and neurology services is following Plan - Hemodialysis session today. Blood flow rate 350, dialysate flow rate 500, ultrafiltration 3 L -We are using 2K dialysate for hyperkalemia. Please check potassium level in a.m. -Continue calcium acetate with meals for hyperphosphatemia -Continue darbepoetin alpha 100 mcg weekly on Friday -Vascular surgery team is following the patient for bilateral carotid artery disease. -Check renal function panel thrice weekly before dialysis adjust order as needed Documented By: Geronimo Fofana MD 04/02/23 [id number] Signed By: <Electronically signed by Geronimo Fofana MD> 04/02/23 5627 [facility] Work Phone: [phone] 149-422602-21-2024 History and physical note Author Teresa Pagan [facility] April 01, 2023 10:21pm Note Date/Time April 01, 2023 8:40pm [facility] [address] [place] [address] Hospitalist H&P Signed with Addenda Patient: Cinthya Wilson MR#: [id number] : 1945 Acct:[id number] Age/Sex: 78 / F Adm Date: 4 Loc: Room: [address] [place] [address] Type: ADM INOo Attending Dr: Teresa Pagan MD Copies to: MD Teresa Bourgeois II, MD~ ADDENDUM1 CTA head and neck showing 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 Patient already on aspirin and statin. Will consultneurology and vascular surgery given severe ICA stenosis with her symptoms of neck pain and visual changes. Given these findings with concern for CVA or symptomatic ICA stenosis patient will require more than 2 midnights of hospital stay and will change her status to inpatient. Addendum Documented By: Teresa Pagan MD 04/01/232220 Addendum Signed By: <Electronically signed by Teresa Pagan MD> 04/01/232220 HPI DATE OF EXAMINATION: 04/01/23 CHIEF COMPLAINT: Weakness with neck pain and missed hemodialysis yesterday. HISTORY OF PRESENT ILLNESS: Patient is a 78-year-old female with history of end-stage renal disease due to diabetes on hemodialysis, coronary disease status post PCI, COPD, chronic respiratory failure on 3 L oxygen, ventricular arrhythmias that is post AICD andother medical comorbidities. Brought to the emergency room with complaint of right-sided neck pain and she missed her hemodialysis yesterday. Patient lives with her son who mentioned on Friday she developed right-sided neck pain with tenderness and they went to [facility] ER. She was given muscle relaxantand was told to have muscle spasm and sent home. She did not feel well on Friday due to her persistent pain and did not go for her routine hemodialysis. She has been feeling weak earlier had an episode of double vision/blurriness which has resolved now. In the emergency room chest x- ray showing cardiomegaly with mild interstitial changes and CT head without contrast did not show any acute abnormality. Her labs showing potassium 5.3, creatinine 6.3 BNP 1382. Inthe emergency room she received 1 dose of IV calcium and regular insulin. Also received diazepam 2.5 mg and during my examination she was resting comfortably. Patient denies fever, chills, chest pain, headache, visual changes, numbness or weakness in extremities. Noted to have tenderness on right lateral neck area atsternocleidomastoid muscle. She denies recent fall or injury to neck or head. Denies numbness or weakness in extremities as well. Review of Systems Review of Systems All other systems reviewed & are negative unless noted below or in HPI [facility] Medical History (Updated 04/01/23 @ 20:47 by Teresa Pagan MD) COPD (chronic obstructive pulmonary disease) Diabetes mellitus with insulin therapy Chronic combined systolic and diastolic CHF (congestive heart failure) Secondary hyperparathyroidism Anemia of renal disease Benign hypertension with end-stage renal disease Type 2 diabetes mellitus with diabetic chronic kidney disease Hyponatremia AV fistula left ESRD (end stage renal disease) Pneumonia Polymyalgia GERD (gastroesophageal reflux disease) Anxiety and depression Skin cancer mohs procedure for removal Neuropathy right thigh and feet Sleep apnea Irregular heart rhythm prior to stent placement per pt report Neck pain with history of cervical spinal surgery Cataract had bilateral PHACO Chronic back pain Arthritis CAD (coronary artery disease) Cervical spinal stenosis Anxiety Hyperlipidemia HTN (hypertension) LVH (left ventricular hypertrophy) Diabetes Insomnia Lumbosacral spondylolysis Anemia CHF (congestive heart failure) Chronic kidney disease Surgical History History of shoulder surgery rt shoulder H/O heart artery stent History of back surgery lumbar History of carpal tunnel release bilateral History of appendectomy History of total abdominal hysterectomy and bilateral salpingo-oophorectomy History of coronary angioplasty with insertion of stent History of x2 History of tonsillectomy History of D&C Family History Father Heart disease Cancer Mother Cancer Diabetes Social History Smoking Status: Never smoker Substance Use Type: None Social History Comments: adult son Meds Medications and Allergies Allergies lisinopril Allergy (Unknown, Verified 04/01/23 14:34) Cough gabapentin Allergy (Verified 04/01/23 14:34) Swelling of Lip/Tongue/Throat Home Medications atorvastatin 40 mg tablet 40 mg PO QPM 11/19/16 [History Confirmed 04/01/23] multivitamin 1 tab PO DAILY 09/07/19 [History Confirmed 04/01/23] aspirin 81 mg tablet,delayed release 81 mg PO DAILY 11/25/19 [History Confirmed 04/01/23] cholecalciferol (vitamin D3) 25 mcg (1,000 unit) tablet (Vitamin D3) 25 mcg PO DAILY 11/25/19 [History Confirmed 03/05/23] citalopram 40 mg tablet 40 mg PO DAILY 11/25/19 [History Confirmed 04/01/23] albuterol sulfate 0.63 mg/3 mL solution for nebulization 0.63 mg inhalation QID PRN SOB 06/26/21 [History Confirmed 04/01/23] docusate sodium 100 mg capsule 100 mg PO BID #60 caps 11/20/21 [Rx Confirmed 04/01/23] pen needle, diabetic 32 gauge x 5/32 (BD Ultra-Fine Lexis Pen Needle) #100 ea 11/20/21 [Rx Confirmed 12/13/22] calcium acetate(phosphat bind) 667 mg capsule 667 mg PO TID.WITH.MEALS 60 days #240 caps 02/26/22 [Rx Confirmed 04/01/23] pantoprazole 40 mg tablet,delayed release 40 mg PO DAILY 05/17/22 [History Confirmed 04/01/23] diclofenac sodium 1 % topical gel (Voltaren Arthritis Pain) 4 g topical QID #0 grams 10/31/22 [Rx Confirmed 04/01/23] furosemide 20 mg tablet 60 mg (3 x 20 mg) PO BID 30 days #180 tabs 10/31/22 [Rx Confirmed 04/01/23] fluticasone fur. 100 mcg-umeclid 62.5 mcg-vilant 25 mcg inhalat.powder (Trelegy Ellipta) 1 ea inhalation DAILY 12/06/22 [History Confirmed 04/01/23] oxycodone-acetaminophen 5 mg-325 mg tablet 1 tab PO Q4-6H PRN Pain 12/06/22 [History Confirmed 04/01/23] pramipexole 0.5 mg tablet 0.5 mg PO HS 12/06/22 [History Confirmed 04/01/23] darbepoetin theodore in polysorbat 60 mcg/mL in polysorbate injection (Aranesp) 80 mcg IV QWEEK 12/29/22 [History Confirmed 04/01/23] fluticasone fur. 100 mcg-umeclid 62.5 mcg-vilant 25 mcg inhalat.powder (Trelegy Ellipta) 1 inh inhalation Q24H 12/29/22 [History Confirmed 04/01/23] insulin lispro 100 unit/mL subcutaneous pen (Humalog KwikPen (U-100) Insulin) 1 sliding scale dose subcut ACHS 12/29/22 [History Confirmed 04/01/23] ondansetron 4 mg disintegrating tablet 4 mg PO Q6H PRN Nausea 12/29/22 [History Confirmed 04/01/23] pramipexole 0.5 mg tablet (Mirapex) 0.5 mg PO QHS 12/29/22 [History Confirmed 04/01/23] acetaminophen 650 mg tablet,extended release (Arthritis Pain Reliever) 650 mg POQ12H PRN pain 03/05/23 [History Confirmed 04/01/23] buspirone 10 mg tablet 10 mg PO BID 03/05/23 [History Confirmed 04/01/23] metoprolol tartrate 25 mg tablet 25 mg PO DAILY 03/05/23 [History Confirmed 04/01/23] mexiletine 200 mg capsule 200 mg PO Q8HR 30 days #90 caps 03/07/23 [Rx] pramipexole 0.5 mg tablet 0.5 mg PO QHS 04/01/23 [History Confirmed 04/01/23] pregabalin 50 mg capsule (Lyrica) 50 mg PO DAILY 04/01/23 [History Confirmed 04/01/23] Exam Physical Exam Vital Signs: Temp Pulse Resp BP Pulse Ox O2 Del Method O2 Flow Rate 98.2 F 60 18 136/67 100 Nasal Cannula 3 04/01/23 14:40 04/01/23 18:58 04/01/23 18:58 04/01/23 18:58 04/01/23 18:58 04/01/23 18:58 04/01/23 18:58 Const General: cooperative Orientation: alert, awake and oriented x3 HEENT Head: normal to inspection, no palpable skull fracture, normocephalic and atraumatic Eyes Pupils: PERRL EOM: EOM intact bilaterally and No nystagmus Neck Neck: normal visual inspection and no meningeal signs Other: Tenderness on right sternocleidomastoid muscle with decreased range of motion due to pain Resp Effort & Inspection: normal respiratory effort and able to speak in complete sentences Auscultation: no rales, no rhonchi and no wheezes Cardio Rate: regular rate Rhythm: regular rhythm Heart Sounds: S1 normal and S2 normal GI Palpation: soft, not firm, no guarding and nontender Musc Cervical Spine: normal cervical lordosis and no cervical spinal tenderness Neuro General: patient alert, patient awake, patient oriented x3, moves all extremities, no focal motor deficits and CN's II-XI intact bilaterally Cognition: normal cognition Speech: speech normal Motor: muscle tone normal throughout and strength 5/5 throughout Extrem General: no clubbing, cyanosis or edema and no calf tenderness Results Lab Results Labs: Laboratory Last Values Corrected WBC 8.8 X10E3/uL (3.8-11.6) 04/01/23 17:00 Uncorrected WBC Count 8.8 x10E3/uL (3.8-11.6) 04/01/23 17:00 RBC 3.82 X10E6/uL (3.60-5.00) 04/01/23 17:00 Hgb 10.2 g/dL (11.8-15.4) L 04/01/23 17:00 Hct 33.1 % (34.0-46.4) L 04/01/23 17:00 MCV 86.7 fl (80-100) 04/01/23 17:00 MCH 26.7 pg (24.7-34.3) 04/01/23 17:00 MCHC 30.8 g/dL (32.0-35.0) L 04/01/23 17:00 RDW 19.9 % (11.9-15.3) H 04/01/23 17:00 Plt Count 289 x10E3/uL (150-450) 04/01/23 17:00 MPV 7.8 fl (6.3-10.7) 04/01/23 17:00 Neut % (Auto) 68.6 % (.) 04/01/23 17:00 Lymph % (Auto) 15.5 % (.) 04/01/23 17:00 Gilchrist % (Auto) 9.5 % (.) 04/01/23 17:00 Eos % (Auto) 5.5 % (.) 04/01/23 17:00 Baso % (Auto) 0.9 % (.) 04/01/23 17:00 Nucleat RBC Rel Count 0.0 /100 WBC (0-0.5) 04/01/23 17:00 Neut # (Auto) 6.1 x10E3/uL (1.8-7.7) 04/01/23 17:00 Lymph # (Auto) 1.4 x10E3/uL (1.00-4.8) 04/01/23 17:00 Gilchrist # (Auto) 0.8 x10E3/uL (0.0-0.8) 04/01/23 17:00 Eos # (Auto) 0.5 x10E3/uL (0.0-0.45) H 04/01/23 17:00 Baso # (Auto) 0.1 x10E3/uL (0.0-0.2) 04/01/23 17:00 Monocyte Dist Width 23.82 % (0.00-20.00) H 04/01/23 17:00 PT 11.3 Seconds (9.0-12.9) 04/01/23 17:00 INR 1.0 04/01/23 17:00 APTT 35.7 Seconds (25.1-36.5) 04/01/23 17:00 PHA Creatinine Clear 6.56 04/01/23 17:00 Sodium 131 mmol/L (136-145) L 04/01/23 17:00 Potassium 5.3 mmol/L (3.5-5.1) H 04/01/23 17:00 Chloride 92 mmol/L (98-107) L 04/01/23 17:00 Carbon Dioxide 27.6 mmol/L (21.0-31.0) 04/01/23 17:00 Anion Gap 16.7 mEq/L (6.0-15.0) H 04/01/23 17:00 BUN 69 mg/dL (7-25) H 04/01/23 17:00 Creatinine 6.30 mg/dL (0.60-1.20) H 04/01/23 17:00 Est GFR (CKD-EPI) 6.414 mL/Min 04/01/23 17:00 Glucose 142 mg/dL (70-100) H 04/01/23 17:00 POC Glucose 152 mg/dl 04/01/23 17:00 Calcium 9.9 mg/dL (8.6-10.3) 04/01/23 17:00 Total Bilirubin 0.4 mg/dl (0.3-1.0) 04/01/23 17:00 Direct Bilirubin 0.00 mg/dL (0.03-0.18) L 04/01/23 17:00 Indirect Bilirubin 0.4 mg/dL 04/01/23 17:00 AST 12 U/L (13-39) L 04/01/23 17:00 ALT 9 U/L (7-52) 04/01/23 17:00 Alkaline Phosphatase 216 U/L (34-104) H 04/01/23 17:00 Total Creatine Kinase 31 U/L (30-223) 04/01/23 17:00 Troponin I High Sens 15.3 pg/mL (0.0-15.0) H 04/01/23 17:00 B-Natriuretic Peptide 1382.0 pg/mL (5-100) H 04/01/23 17:00 Total Protein 7.1 gm/dL (6.4-8.9) 04/01/23 17:00 Albumin 3.5 gm/dL (3.5-5.7) 04/01/23 17:00 Globulin 3.6 gm/dL 04/01/23 17:00 Albumin/Globulin Ratio 1.0 04/01/23 17:00 SARS-CoV-2 Rap RNA(RT-PCR) Negative (Negative) 04/01/23 16:45 Microbiology Results Micro: Microbiology - Results from entire visit 04/01/23 16:45 Nasopharyngeal SARS-CoV-2, Influenza & RSV (PCR) - Final Assessment & Plan Assessment/Plan (1) End-stage renal disease (ESRD): (2) Acute hyperkalemia: (3) Fluid overload: (4) Missed dialysis: (5) Neck pain: (6) Chronic hypoxemic respiratory failure: (7) COPD (chronic obstructive pulmonary disease): Plan Patient with history of end-stage renal disease on hemodialysis, coronary arterydisease, COPD and chronic respiratory failure. Patient presented to ER with right-sided neck tenderness and missed her hemodialysis yesterday. She has beenhaving tenderness on the right side of neck for last couple of days earlier today had an episode of double vision which brought her to the emergency room. On examination no focal motor deficit noted other than tenderness on the right lateral neck area. She did miss her hemodialysis yesterday noted to have mild hyperkalemia. She will be kept under observation with plan for hemodialysis tomorrow. Nephrology will be consulted. She did receive IV calcium and insulinin the emergency room. Give 1 dose of Lokelma. Add Lidoderm patch and Voltarengel regarding her neck pain. Given her episode of double vision and multiple risk factors will obtain CTA head and neck to rule out any vascular abnormality. I have discussed with nephrology and patient can have CT with contrast since she will be getting hemodialysis in the morning. Continue other home medications including aspirin, statin and sliding scale coverage. Continue bronchodilators with no signs of COPD exacerbation. Currently no need for emergent hemodialysis as no significant fluid overload. DVT prophylaxis. IP vs OBS Justification Based on differential dx, clinical care plan, and risk of adverse events, if untreated, in my clinical judgement this patient requires an acute care setting as: OBSERVATION because of an expectation of an under 2 midnight stay. Estimated length of stay (# of days): 1 Documented By: Teresa Pagan MD 04/01/232025 Signed By: <Electronically signed by Teresa Pagan MD> 04/01/232049 [facility] Work Phone: 1(913) 437-882702-20-2024 History and physical note Author Teresa Pagan [facility] April 01, 2023 10:21pm Note Date/Time April 01, 2023 8:40pm [facility] [address] [place] [address] Hospitalist H&P Signed with Addenda Patient: Cinthya Wilson MR#: [id number] : 1945 Acct:[id number] Age/Sex: 78 / F Adm Date: 4 Loc: Room: [address] [place] [address] Type: ADM INOo Attending Dr: Teresa Pagan MD Copies to: MD Teresa Bourgeois II, MD~ ADDENDUM1 CTA head and neck showing 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 Patient already on aspirin and statin. Will consultneurology and vascular surgery given severe ICA stenosis with her symptoms of neck pain and visual changes. Given these findings with concern for CVA or symptomatic ICA stenosis patient will require more than 2 midnights of hospital stay and will change her status to inpatient. Addendum Documented By: Teresa Pagan MD 04/01/232220 Addendum Signed By: <Electronically signed by Teresa Pagan MD> 04/01/232220 HPI DATE OF EXAMINATION: 04/01/23 CHIEF COMPLAINT: Weakness with neck pain and missed hemodialysis yesterday. HISTORY OF PRESENT ILLNESS: Patient is a 78-year-old female with history of end-stage renal disease due to diabetes on hemodialysis, coronary disease status post PCI, COPD, chronic respiratory failure on 3 L oxygen, ventricular arrhythmias that is post AICD andother medical comorbidities. Brought to the emergency room with complaint of right-sided neck pain and she missed her hemodialysis yesterday. Patient lives with her son who mentioned on Friday she developed right-sided neck pain with tenderness and they went to [facility] ER. She was given muscle relaxantand was told to have muscle spasm and sent home. She did not feel well on Friday due to her persistent pain and did not go for her routine hemodialysis. She has been feeling weak earlier had an episode of double vision/blurriness which has resolved now. In the emergency room chest x- ray showing cardiomegaly with mild interstitial changes and CT head without contrast did not show any acute abnormality. Her labs showing potassium 5.3, creatinine 6.3 BNP 1382. Inthe emergency room she received 1 dose of IV calcium and regular insulin. Also received diazepam 2.5 mg and during my examination she was resting comfortably. Patient denies fever, chills, chest pain, headache, visual changes, numbness or weakness in extremities. Noted to have tenderness on right lateral neck area atsternocleidomastoid muscle. She denies recent fall or injury to neck or head. Denies numbness or weakness in extremities as well. Review of Systems Review of Systems All other systems reviewed & are negative unless noted below or in HPI [facility] Medical History (Updated 04/01/23 @ 20:47 by Teresa Pagan MD) COPD (chronic obstructive pulmonary disease) Diabetes mellitus with insulin therapy Chronic combined systolic and diastolic CHF (congestive heart failure) Secondary hyperparathyroidism Anemia of renal disease Benign hypertension with end-stage renal disease Type 2 diabetes mellitus with diabetic chronic kidney disease Hyponatremia AV fistula left ESRD (end stage renal disease) Pneumonia Polymyalgia GERD (gastroesophageal reflux disease) Anxiety and depression Skin cancer mohs procedure for removal Neuropathy right thigh and feet Sleep apnea Irregular heart rhythm prior to stent placement per pt report Neck pain with history of cervical spinal surgery Cataract had bilateral PHACO Chronic back pain Arthritis CAD (coronary artery disease) Cervical spinal stenosis Anxiety Hyperlipidemia HTN (hypertension) LVH (left ventricular hypertrophy) Diabetes Insomnia Lumbosacral spondylolysis Anemia CHF (congestive heart failure) Chronic kidney disease Surgical History History of shoulder surgery rt shoulder H/O heart artery stent History of back surgery lumbar History of carpal tunnel release bilateral History of appendectomy History of total abdominal hysterectomy and bilateral salpingo-oophorectomy History of coronary angioplasty with insertion of stent History of x2 History of tonsillectomy History of D&C Family History Father Heart disease Cancer Mother Cancer Diabetes Social History Smoking Status: Never smoker Substance Use Type: None Social History Comments: adult son Meds Medications and Allergies Allergies lisinopril Allergy (Unknown, Verified 04/01/23 14:34) Cough gabapentin Allergy (Verified 04/01/23 14:34) Swelling of Lip/Tongue/Throat Home Medications atorvastatin 40 mg tablet 40 mg PO QPM 11/19/16 [History Confirmed 04/01/23] multivitamin 1 tab PO DAILY 09/07/19 [History Confirmed 04/01/23] aspirin 81 mg tablet,delayed release 81 mg PO DAILY 11/25/19 [History Confirmed 04/01/23] cholecalciferol (vitamin D3) 25 mcg (1,000 unit) tablet (Vitamin D3) 25 mcg PO DAILY 11/25/19 [History Confirmed 03/05/23] citalopram 40 mg tablet 40 mg PO DAILY 11/25/19 [History Confirmed 04/01/23] albuterol sulfate 0.63 mg/3 mL solution for nebulization 0.63 mg inhalation QID PRN SOB 06/26/21 [History Confirmed 04/01/23] docusate sodium 100 mg capsule 100 mg PO BID #60 caps 11/20/21 [Rx Confirmed 04/01/23] pen needle, diabetic 32 gauge x /32 (BD Ultra-Fine Leixs Pen Needle) #100 ea 11/20/21 [Rx Confirmed 12/13/22] calcium acetate(phosphat bind) 667 mg capsule 667 mg PO TID.WITH.MEALS 60 days #240 caps 02/26/22 [Rx Confirmed 04/01/23] pantoprazole 40 mg tablet,delayed release 40 mg PO DAILY 05/17/22 [History Confirmed 04/01/23] diclofenac sodium 1 % topical gel (Voltaren Arthritis Pain) 4 g topical QID #0 grams 10/31/22 [Rx Confirmed 04/01/23] furosemide 20 mg tablet 60 mg (3 x 20 mg) PO BID 30 days #180 tabs 10/31/22 [Rx Confirmed 04/01/23] fluticasone fur. 100 mcg-umeclid 62.5 mcg-vilant 25 mcg inhalat.powder (Trelegy Ellipta) 1 ea inhalation DAILY 12/06/22 [History Confirmed 04/01/23] oxycodone-acetaminophen 5 mg-325 mg tablet 1 tab PO Q4-6H PRN Pain 12/06/22 [History Confirmed 04/01/23] pramipexole 0.5 mg tablet 0.5 mg PO HS 12/06/22 [History Confirmed 04/01/23] darbepoetin theodore in polysorbat 60 mcg/mL in polysorbate injection (Aranesp) 80 mcg IV QWEEK 12/29/22 [History Confirmed 04/01/23] fluticasone fur. 100 mcg-umeclid 62.5 mcg-vilant 25 mcg inhalat.powder (Trelegy Ellipta) 1 inh inhalation Q24H 12/29/22 [History Confirmed 04/01/23] insulin lispro 100 unit/mL subcutaneous pen (Humalog KwikPen (U-100) Insulin) 1 sliding scale dose subcut ACHS 12/29/22 [History Confirmed 04/01/23] ondansetron 4 mg disintegrating tablet 4 mg PO Q6H PRN Nausea 12/29/22 [History Confirmed 04/01/23] pramipexole 0.5 mg tablet (Mirapex) 0.5 mg PO QHS 12/29/22 [History Confirmed 04/01/23] acetaminophen 650 mg tablet,extended release (Arthritis Pain Reliever) 650 mg POQ12H PRN pain 03/05/23 [History Confirmed 04/01/23] buspirone 10 mg tablet 10 mg PO BID 03/05/23 [History Confirmed 04/01/23] metoprolol tartrate 25 mg tablet 25 mg PO DAILY 03/05/23 [History Confirmed 04/01/23] mexiletine 200 mg capsule 200 mg PO Q8HR 30 days #90 caps 03/07/23 [Rx] pramipexole 0.5 mg tablet 0.5 mg PO QHS 04/01/23 [History Confirmed 04/01/23] pregabalin 50 mg capsule (Lyrica) 50 mg PO DAILY 04/01/23 [History Confirmed 04/01/23] Exam Physical Exam Vital Signs: Temp Pulse Resp BP Pulse Ox O2 Del Method O2 Flow Rate 98.2 F 60 18 136/67 100 Nasal Cannula 3 04/01/23 14:40 04/01/23 18:58 04/01/23 18:58 04/01/23 18:58 04/01/23 18:58 04/01/23 18:58 04/01/23 18:58 Const General: cooperative Orientation: alert, awake and oriented x3 HEENT Head: normal to inspection, no palpable skull fracture, normocephalic and atraumatic Eyes Pupils: PERRL EOM: EOM intact bilaterally and No nystagmus Neck Neck: normal visual inspection and no meningeal signs Other: Tenderness on right sternocleidomastoid muscle with decreased range of motion due to pain Resp Effort & Inspection: normal respiratory effort and able to speak in complete sentences Auscultation: no rales, no rhonchi and no wheezes Cardio Rate: regular rate Rhythm: regular rhythm Heart Sounds: S1 normal and S2 normal GI Palpation: soft, not firm, no guarding and nontender Musc Cervical Spine: normal cervical lordosis and no cervical spinal tenderness Neuro General: patient alert, patient awake, patient oriented x3, moves all extremities, no focal motor deficits and CN's II-XI intact bilaterally Cognition: normal cognition Speech: speech normal Motor: muscle tone normal throughout and strength 5/5 throughout Extrem General: no clubbing, cyanosis or edema and no calf tenderness Results Lab Results Labs: Laboratory Last Values Corrected WBC 8.8 X10E3/uL (3.8-11.6) 04/01/23 17:00 Uncorrected WBC Count 8.8 x10E3/uL (3.8-11.6) 04/01/23 17:00 RBC 3.82 X10E6/uL (3.60-5.00) 04/01/23 17:00 Hgb 10.2 g/dL (11.8-15.4) L 04/01/23 17:00 Hct 33.1 % (34.0-46.4) L 04/01/23 17:00 MCV 86.7 fl (80-100) 04/01/23 17:00 MCH 26.7 pg (24.7-34.3) 04/01/23 17:00 MCHC 30.8 g/dL (32.0-35.0) L 04/01/23 17:00 RDW 19.9 % (11.9-15.3) H 04/01/23 17:00 Plt Count 289 x10E3/uL (150-450) 04/01/23 17:00 MPV 7.8 fl (6.3-10.7) 04/01/23 17:00 Neut % (Auto) 68.6 % (.) 04/01/23 17:00 Lymph % (Auto) 15.5 % (.) 04/01/23 17:00 Gilchrist % (Auto) 9.5 % (.) 04/01/23 17:00 Eos % (Auto) 5.5 % (.) 04/01/23 17:00 Baso % (Auto) 0.9 % (.) 04/01/23 17:00 Nucleat RBC Rel Count 0.0 /100 WBC (0-0.5) 04/01/23 17:00 Neut # (Auto) 6.1 x10E3/uL (1.8-7.7) 04/01/23 17:00 Lymph # (Auto) 1.4 x10E3/uL (1.00-4.8) 04/01/23 17:00 Gilchrist # (Auto) 0.8 x10E3/uL (0.0-0.8) 04/01/23 17:00 Eos # (Auto) 0.5 x10E3/uL (0.0-0.45) H 04/01/23 17:00 Baso # (Auto) 0.1 x10E3/uL (0.0-0.2) 04/01/23 17:00 Monocyte Dist Width 23.82 % (0.00-20.00) H 04/01/23 17:00 PT 11.3 Seconds (9.0-12.9) 04/01/23 17:00 INR 1.0 04/01/23 17:00 APTT 35.7 Seconds (25.1-36.5) 04/01/23 17:00 PHA Creatinine Clear 6.56 04/01/23 17:00 Sodium 131 mmol/L (136-145) L 04/01/23 17:00 Potassium 5.3 mmol/L (3.5-5.1) H 04/01/23 17:00 Chloride 92 mmol/L (98-107) L 04/01/23 17:00 Carbon Dioxide 27.6 mmol/L (21.0-31.0) 04/01/23 17:00 Anion Gap 16.7 mEq/L (6.0-15.0) H 04/01/23 17:00 BUN 69 mg/dL (7-25) H 04/01/23 17:00 Creatinine 6.30 mg/dL (0.60-1.20) H 04/01/23 17:00 Est GFR (CKD-EPI) 6.414 mL/Min 04/01/23 17:00 Glucose 142 mg/dL (70-100) H 04/01/23 17:00 POC Glucose 152 mg/dl 04/01/23 17:00 Calcium 9.9 mg/dL (8.6-10.3) 04/01/23 17:00 Total Bilirubin 0.4 mg/dl (0.3-1.0) 04/01/23 17:00 Direct Bilirubin 0.00 mg/dL (0.03-0.18) L 04/01/23 17:00 Indirect Bilirubin 0.4 mg/dL 04/01/23 17:00 AST 12 U/L (13-39) L 04/01/23 17:00 ALT 9 U/L (7-52) 04/01/23 17:00 Alkaline Phosphatase 216 U/L (34-104) H 04/01/23 17:00 Total Creatine Kinase 31 U/L (30-223) 04/01/23 17:00 Troponin I High Sens 15.3 pg/mL (0.0-15.0) H 04/01/23 17:00 B-Natriuretic Peptide 1382.0 pg/mL (5-100) H 04/01/23 17:00 Total Protein 7.1 gm/dL (6.4-8.9) 04/01/23 17:00 Albumin 3.5 gm/dL (3.5-5.7) 04/01/23 17:00 Globulin 3.6 gm/dL 04/01/23 17:00 Albumin/Globulin Ratio 1.0 04/01/23 17:00 SARS-CoV-2 Rap RNA(RT-PCR) Negative (Negative) 04/01/23 16:45 Microbiology Results Micro: Microbiology - Results from entire visit 04/01/23 16:45 Nasopharyngeal SARS-CoV-2, Influenza & RSV (PCR) - Final Assessment & Plan Assessment/Plan (1) End-stage renal disease (ESRD): (2) Acute hyperkalemia: (3) Fluid overload: (4) Missed dialysis: (5) Neck pain: (6) Chronic hypoxemic respiratory failure: (7) COPD (chronic obstructive pulmonary disease): Plan Patient with history of end-stage renal disease on hemodialysis, coronary arterydisease, COPD and chronic respiratory failure. Patient presented to ER with right-sided neck tenderness and missed her hemodialysis yesterday. She has beenhaving tenderness on the right side of neck for last couple of days earlier today had an episode of double vision which brought her to the emergency room. On examination no focal motor deficit noted other than tenderness on the right lateral neck area. She did miss her hemodialysis yesterday noted to have mild hyperkalemia. She will be kept under observation with plan for hemodialysis tomorrow. Nephrology will be consulted. She did receive IV calcium and insulinin the emergency room. Give 1 dose of Lokelma. Add Lidoderm patch and Voltarengel regarding her neck pain. Given her episode of double vision and multiple risk factors will obtain CTA head and neck to rule out any vascular abnormality. I have discussed with nephrology and patient can have CT with contrast since she will be getting hemodialysis in the morning. Continue other home medications including aspirin, statin and sliding scale coverage. Continue bronchodilators with no signs of COPD exacerbation. Currently no need for emergent hemodialysis as no significant fluid overload. DVT prophylaxis. IP vs OBS Justification Based on differential dx, clinical care plan, and risk of adverse events, if untreated, in my clinical judgement this patient requires an acute care setting as: OBSERVATION because of an expectation of an under 2 midnight stay. Estimated length of stay (# of days): 1 Documented By: Teresa Pagan MD 04/01/232025 Signed By: <Electronically signed by Teresa Pagan MD> 04/01/232049 [facility] Work Phone: 1(700) 249-567302-20-2024 NoteOkay here in the [place] Electrophysiology Consult Note Reason for visit: near syncope, VT s/p dual chamber ICD. 04/01/23 Patient here for 6 week follow up VT, aortic valve stenosis, CAD, and HFpEF. She is now 2 months s/p ICD placement. She is up about 10#, but did not go to dialysis yesterday. Denies chest pain, palpitations, and lightheadedness/syncope. She had a bunch of lab work yesterday. She started on Mexelitine. Patient had 2 episode of VT that degenerated into VF on March 05, 2023 at 5 PM which was treated with an shock. There was another episode of nonsustained polymorphic VT that was precipitated by PVC on the same day. the first shock also was from the PVC induced polymorphic VT 02/25/23 Feels tired. Bp at home runs at 110 systolic. She is on Toprol XL 25mg alone and not on Valsartan. Device check reveals 93% atrial pacing. No NSVT/Afib noted on check onm 02/17/23. HPI: Cinthya Wilson is a 78 y.o. year old with past medical history of Orthostatic hypotension, aortic valve stenosis, CAD s/p PCI, hypertension, ckd on HD M/W/F, hld, CHF, COPD on 3L NC, syncope. She was recently admitted to [facility] after syncopal episode and hitting her head as a result. Patient was at home clearing table after dinner where she felt sudden onset of dizziness and then just passed out. She had CT scans of the head and cervical spine which were unremarkable. [facility] noted multiple runs of nonsustained VT and her EKG at that time showed normal sinus rhythm first-degree AV block and PVCs. She was switched from carvedilol to metoprolol and then began to experience bradycardia; at some point she was started on amiodarone for rhythm control related to VT. She was discharged with 2-week event monitor. 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 She was [...] disease) 09/23/2021 COPD (chronic obstructive pulmonary disease) ([facility]) 09/23/2021 Diastolic heart failure ([facility]) 09/23/2021 Dyspnea 09/23/2021 Edema 09/23/2021 Essential hypertension 09/23/2021 Hyperlipemia 09/23/2021 Kidney disease 09/23/2021 Orthopnea 09/23/2021 Primary malignant neoplasm ([facility]) 09/23/2021 Sleep apnea Type 1 diabetes ([facility]) 09/23/2021 PSH: Past Surgical History: Procedure Laterality [...] Expenses: Not hard at all Food Insecurity: Not on file (01/29/2023) Transportation Needs: Not on file (01/29/2023) Physical Activity: Inactive (01/29/2023) Exercise Vital Sign Days of Exercise per Week: 0 days Minutes of Exercise per Session: 0 min Stress: Stress Concern Present (01/29/2023) [place] - Occupational Stress Questionnaire Feeling of Stress : To some extent Social Connections: Socially Isolated (01/29/2023) Social Connection and Isolation Panel [NHANES] Frequency of Communication with Friends and Family: More than three times a week Frequency of Social Gatherings with Friends and Family: Once a week Attends Yazidi Services: Never Active Member of Clubs or Organizations: No Attends Club or Organization Meetings: Never Marital Status: Intimate Partner Violence: Not on file (01/29/2023) Depression: Not on file Housing Stability: Not on file (01/29/2023) Utilities: Not on file Allergies: Allergies Allergen Reactions Benazepril Gabapentin Other Tongue swelling, increased confusion Lisinopril Meloxicam Other due to kidney issues in past with medication Weight: 64.4kg Visit Vitals BP 111/59 (BP Location: Right arm, Patient Position: Sitting) Pulse 7 (more content not included)...[facility] 02-25-2023 NoteUT Electrophysiology Consult Note Reason for visit: near syncope, VT s/p dual chamber ICD. Date of Telehealth Visit: 02/25/2023 The patient was notified that using 3rd constitution party telecommunication application (e.g., [employer]) is not HIPPA compliant and may carry some privacy risks. Yes The visit was conducted [id number] with the use of audio and video [...] NC, syncope. She was recently admitted to [facility] after syncopal episode and hitting her head as a result. Patient was at home clearing table after dinner where she felt sudden onset of dizziness and then just passed out. She had CT scans of the head and cervical spine which were unremarkable. [facility] ER noted multiple runs of nonsustained VT and her EKG at that time showed normal sinus rhythm first-degree AV block and PVCs. She was switched from carvedilol to metoprolol and then began to experience bradycardia; at some point she was started on amiodarone for rhythm control related to VT. She was discharged with 2-week event monitor. 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 She was [...] disease) 09/23/2021 COPD (chronic obstructive pulmonary disease) ([facility]) 09/23/2021 Diastolic heart failure ([facility]) 09/23/2021 Dyspnea 09/23/2021 Edema 09/23/2021 Essential hypertension 09/23/2021 Hyperlipemia 09/23/2021 Kidney disease 09/23/2021 Orthopnea 09/23/2021 Primary malignant neoplasm ([facility]) 09/23/2021 Sleep apnea Type 1 diabetes ([facility]) 09/23/2021 PSH: Past Surgical History: Procedure Laterality [...] 0 min Stress: Stress Concern Present (01/29/2023) [place] [employer] - Occupational Stress Questionnaire Feeling of Stress : To some extent Social Connections: Socially Isolated (01/29/2023) Social Connection and Isolation Panel [NHANES] Frequency of Communication with Friends and Family: More than three times (more content not included)...[facility]-22-[address] Shore, patient okay to safely discharge without seeing wound care as long as prior wounds remain unchanged. If wounds have worsened in status or have changed, cannot discharge patient without wound RN assessing.[facility]12-22-2023 NoteDischarge orders placed for patient. She is active with [facility]. A return referral was placed via [facility] to include clinical summary and AVS. No other OTM needs identified.[facility]12-22-2023 Note Hospital Medicine Discharge Summary Final Discharge Diagnosis: Nonsustained V. tach Hypomagnesemia Hypokalemia Right pleural effusion History of syncope Diastolic CHF Aortic stenosis Diabetes CAD, status post PCI ESRD, on hemodialysis MWF COPD, on home oxygen 3 L Admission Diagnosis: End stage renal disease ([facility]) [N18.6] Hypokalemia [E87.6] Hypomagnesemia [E83.42] Ventricular tachycardia ([facility]) [I47.20] Nonsustained ventricular tachycardia ([facility]) [I47.29] Type 2 diabetes mellitus without complication, with long-term current use of insulin ([facility]) [E11.9, Z79.4] Hospital course: Cinthya Wilson is an 77 y.o. 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 tach on the monitor. Patient only complains of increased shortness of breath but no chest pain. She has lightheadedness. No recent falls. No nausea or vomiting. Patient states that she had the monitor in order to be evaluated for the need of pacemaker. Upon review of her records, patient was hospitalized at [facility] for syncope and at that time she [...] Time Provider Department Center 02/13/2023 2:30 PM [facility] DEVICE CHECK HVC CARD [...] HYDROcodone-acetaminophen 7.5-325 mg tablet Commonly known as: Fenton midodrine 5 mg tablet Commonly known as: [...] 200-62.5-25 mcg blister with device Generic drug: ynpyhjvpcqe-btuhtmliv-riqfcnoa valsartan 160 mg tablet Commonly known as: Diovan STOP taking these medications amiodarone 400 mg tablet Commonly known as: Pacerone carvedilol 3.125 mg tablet Commonly known as: Coreg Where to Get Your Medications These medications were sent to [id number] [id number] metoprolol succinate XL 25 mg 24 hr tablet Cinthya is allergic to benazepril, gabapentin, lisinopril, and meloxicam. [place] [facility] [place] Condition: Stable Code Status: Full Code Diagnostic Results Hematology: Results from last 7 days Lab Units 01/31/23 0543 01/30/23 0507 01/29/23 2043 WBC AUTO 10*3/uL 9.44 8.30 7.70 HEMOGLOBIN [...] 39* 29* 23 CREATININ (more content not included)...[facility] 01-31-2023 NoteOccupational Therapy Cancel Note Reason: Patient off the floor at HD at this time. OT will continue to follow and will re-attempt as able. Time in: 945 Check no charge Lemuel FLETCHER, OTR/L, [facility]12-22-2023 Note Attestation signed by Saad Wade MD at [...] tolerated. Patient is status post AICD placement Nephrology Progress Note Patient : Cinthya Wilson; [...] syncope for what patient was on manager monitoring for the last few weeks presented to ER by recommendation of her incinerator plant supervisor because of runs of nonsustained V. tach on the monitor. Patient only complains of increased shortness of breath but no chest pain. She has lightheadedness. No recent falls. No nausea or vomiting. Patient states that she had the monitor in order to be evaluated for the need of pacemaker. Upon review of her records, patient was hospitalized at [facility] for syncope and at that time she [...] Dose Status amiodarone (Pacerone) 400 mg tablet [id number] Take 400 mg by mouth in the morning a (more content not included)...[facility] 01-31-2023 Note Attestation signed by Cheli Lutz MD at [...] stress testing Cheli Lutz MD, MPH, FACC, [facility], [facility] Interventional Cardiology Pager Email: [email or web address] Progress Note Subjective Subjective: Cinthya Wilson is a 77 y.o. female with past medical history of CAD s/p PCI to LAD 2016, HFpEF 50-55%, aortic valve stenosis, ESRD HD MWF, COPD 3L NC, HTN, orthostatic hypotension who presents from cardiology clinic due to runs of NSVT seen on monitor. Of note, she was hospitalized at [facility] after syncopal episode last month. Note NSVT and bradycardia at her visit there. She was discontinued on her home beta madhu and event monitor at that point, started on amiodarone. 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 Suggested to discontinue amiodarone given concurrent lung disease and kidney failure. On 01/29, event monitor picked up VT for greater than 3 minute stretch. Patient was completely asymptomatic at that time, reported to [facility] for evaluation. 01/31: Patient underwent dual chamber pacemaker insertion yesterday 01/30. Tolerated procedure well, site looks clean with no erythema. Slight tenderness noted. No acute events overnight, afebrile, hemodynamically stable. Objective Objective: Patient Vitals for the past 24 hrs: BP Temp Temp src Pulse Resp SpO2 Weight 01/31/23 0400 103/54 36.8 ???C (98.2 ???F) 63 16 100 % 59.9 kg (132 lb 0.9 oz) 01/31/23 0000 103/50 37 ???C (98.6 ???F) 64 18 99 % -- 01/30/232299 115/55 -- -- 63 17 100 % -- 01/30/232202 105/51 -- -- 68 17 100 % -- 01/30/232199 (!) 115/48 -- -- 64 18 100 % -- 01/30/232099 132/59 36.6 ???C (97.9 ???F) 65 20 100 % -- 01/30/232016 122/59 -- -- 64 17 100 % -- 01/30/232002 (!) 94/49 36.8 ???C (98.2 ???F) 64 12 100 % -- 01/30/231933 (!) 141/49 37 ???C (98.6 ???F) Temporal 60 18 100 % -- 01/30/23 1918 (!) 116/49 -- -- 60 13 100 % -- 01/30/23 1755 -- -- -- -- -- 100 % -- 01/30/23 1755 (!) 130/49 -- -- 52 11 100 [...] Value Ventricular Rate 62 Atrial Rate 62 WV Interval 258 QRS DURATION 126 QT Interval 490 QTC CALCULATION(BAZETT) 497 P Elfrida 266 R-Elfrida -21 T Wave Elfrida -31 Impression Ectopic atrial rhythm Non-specific intra-ventricular conduction block Minimal voltage criteria for LVH, may be normal variant ( Ed product ) Cannot rule out Anteroseptal infarct [...] Bubble Study Result Date: 01/30/2023 1 1 [facility] Heart Station [address] [place] [address] [phone] (fax) Echocardiogram-[facility] Name: CINTHYA WILSON Study Date: 01/30/2023 09:26 AM B/P: 119 mmHg/52 mmHg HR: 56 bpm Date of : 1945 Location: [facility] Height: 64 in. Age: 77 year(s) Patient Room: 3107 Weight: 131 lb. Gender: Female Patient Status: InPt BSA: 1.63 m2 Indication: Nonsustained Ventricular Tachycardia Patient supine due to condition Examination: Echocardiogram (Complete), Mary (more content not included)...[facility]12-21-2023 NoteDUAL CHAMBER ICD IMPLANT & DFT TESTING PROCEDURE NOTE DATE OF PROCEDURE: 01/30/23 PERFORMING PHYSICIAN: Dr. Nadeem Sanchez TAX EVALUATOR: Dr. Wei Banuelos CONSENT: Patient LOCATION: EP [...] using modified seldinger technique using a 5 Bangladeshi micro-puncture needle on two occasions and 0.35 [...] for the device above the muscle. 6 Bangladeshi Safesheaths were placed over the wire. An active fixation Biotronik ICD lead was then delivered through the 8F sheath to the right ventricle. After confirmation of lead position on orthogonal views (SANCHES and DUYEN) to confirm septal position, the screw was [...] lead position on orthogonal views (SANCHES and DUYEN), the screw was activated. Good sensing parameters, [...] x 3 weeks Nadeem Sanchez MD [facility] Note Patient: Cinthya Wilson Procedure Information Date/Time: 12/21/23 1700 Procedure: Coronary angiography Location: [facility] VALVE PIPE IRRIGATOR 3 / [facility] (Cath) Providers: Moo Rivero MD Clinical information reviewed: Tobacco Allergies Meds [...] products. Plan discussed with attending. Additional Equipment [facility]-2023 Note Clinical Nutrition Assessment Name: Cinthya Wilson Date: 1945 Date of Visit: 01/30/23 Reason for assessment: high risk wounds Information obtained from: patient, medical record, and nursing Medical History Chief Complaint Patient presents with Shortness of Breath Pt presents to ED with c/o SOB and 2+ minutes if vtach per the [facility] A R COLLECTIONS REP at cardio clinic. Pt is being evaluated for defibrillator. 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 Past Medical History: Diagnosis Date CAD (coronary artery disease) 09/23/2021 COPD (chronic obstructive pulmonary disease) ([facility]) 09/23/2021 Diastolic heart failure ([facility]/HCC) 09/23/2021 Dyspnea 09/23/2021 Edema 09/23/2021 Essential hypertension 09/23/2021 Hyperlipemia 09/23/2021 Kidney disease 09/23/2021 Orthopnea 09/23/2021 Primary malignant neoplasm ([facility]) 09/23/2021 Sleep apnea Type 1 diabetes ([facility]) 09/23/2021 Past Surgical History: Procedure Laterality Date [...] hours citalopram (CELEXA) 40 mg, oral, Daily jtskxksqgnx-ibqzqcpnh-ffmccwci (Trelegy Ellipta) 200-62.5-25 mcg blister with device inhalation furosemide (Lasix) 40 mg tablet 1.5 tablets, oral, 2 times daily gabapentin (NEURONTIN) 100 mg, oral, 2 times daily HumaLOG KwikPen Insulin 100 unit/mL injection No dose, route, or frequency recorded. HYDROcodone-acetaminophen (Fenton) 7.5-325 mg tablet 1 tablet, oral, As [...] based on: actual body weight Calorie needs: 1024-9179 kcals/day based on Equation: 25-30 kcal/kg Protein needs: 71-90 g/day based on 1.2-1.5 g/kg -ESRD on HD Fluid needs: 1490 ml/day b (more content not included)...[facility]12-21-2023 NoteHospital Medicine Daily Progress Note - 01/30/2023 12:14 PM; Room: [facility]3107- Admission: 01/29/2023 7:29 PM; Length of stay: 1 days THE HOSPITALIST TEAM PREFERS TO USE [employer] FOR COMMUNICATION 7AM-7PM. IF I DO NOT RESPOND WITHIN 15 MINUTES, PLEASE PAGE ME/CALL THROUGH THE RUCHING MACHINE OPERATOR. FROM 7PM-7AM, PLEASE PAGE [phone](COVR) Code Status: Full Code Barriers to Discharge: [...] , FREET4 , CORTISOL , FEV1 , GBK9DNF , DLCO , RVSP , HDL , LDL No results found for: [id number] , IRON , TIBC , C3 , C4 , DIVYA , CANCA , ASO , PSA , CEA , CA125 , CA199 , AFP , CA153 Imaging Complete Echo (TTE) w/wo Imaging Agent, Strain, 3D, Bubble Study 1 1 [facility] Heart Station [address] [place] [address] [phone] (fax) Echocardiogram-[facility] Name: CINTHYA WILSON Study Date: 01/30/2023 09:26 AM B/P: 119 mmHg/52 mmHg HR: 56 bpm Date of : 1945 Location: [facility] Height: 64 in. Age: 77 year(s) Patient Room: 3107 Weight: 131 lb. Gender: Female Patient Status: InPt BSA: 1.63 m2 Indication: Nonsustained Ventricular Tachycardia Patient supine due to condition Examination: Echocardiogram (Complete), Lumas (more content not included)...[facility]12-21-2023 Note01/30/23 0808 Admission Assessment Questions Verify insurance with [...] Yes Does the patient have a case management social worker assigned to them through their insurance? No Living Arrangement (Current/Prior to Hospitalization) Private residence;Other (Comment) (lives w/daughter. 2 story house w/bed and bath on 1st floor. 4 entry stairs with railings - currently w/[facility]) Does the patient have history of HHC or SNF? Yes (C - [facility] currently. Past SNF was [place]) Assistive Device Walker;Oxygen;Grab bars;Wheelchair (shower chair) Patient's goal for discharge Home w/HHC Was patient reminded that goal for discharge is 11am? Yes Does the patient have transportation at discharge? Yes (one of her children) Type of Residence/Post Acute Needs Private residence;HHC Is PT/OT appropriate? No Is PT/OT ordered? No Is SW consult appropriate? Yes Is SW consult ordered? Yes Do you understand the benefits of MyChart? Yes Were you able to send link and activate MyChart? [facility] NoteHospital Medicine History and Physical 01/29/2023 11:01 PM THE HOSPITALIST TEAM PREFERS TO USE [employer] FOR COMMUNICATION 7AM-7PM. IF I DO NOT RESPOND WITHIN 15 MINUTES, PLEASE PAGE ME/CALL THROUGH THE RUCHING MACHINE OPERATOR. FROM 7PM-7AM, PLEASE PAGE [phone](COVR) Chief Complaint Chief Complaint Patient presents with Shortness of Breath Pt presents to ED with c/o SOB and 2+ minutes if vtach per the [facility] A R COLLECTIONS REP at cardio clinic. Pt is being evaluated for defibrillator. 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 History of Present Illness Cinthya Wilson is an 77 y.o. 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 tach on the monitor. Patient only complains of increased shortness of breath but no chest pain. She has lightheadedness. No recent falls. No nausea or vomiting. Patient states that she had the monitor in order to be evaluated for the need of pacemaker. Upon review of her records, patient was hospitalized at [facility] for syncope and at that time she [...] Date Noted Orthostatic hypotension 09/09/2022 Ventricular tachycardia (CMS/HCC) 01/29/2023 Hypomagnesemia 01/29/2023 Hypokalemia 01/29/2023 Nonsustained ventricular tachycardia (CMS/HCC) 12/26/2022 Bilateral hearing loss 10/24/2022 Type 2 diabetes mellitus without complications (CMS/HCC) 09/09/2022 Hypertension 07/22/2022 History of placement of [...] Chronic combined systolic and diastolic heart failure ([facility]) 12/03/2021 CKD (chronic kidney disease) 12/03/2021 Nonrheumatic aortic valve stenosis 12/03/2021 Pleural effusion, not elsewhere classified 11/19/2021 Arteriovenous fistula, acquired ([facility]) 11/12/2021 Atrioventricular block, first degree 11/12/2021 Basal cell carcinoma of skin, unspecified 11/12/2021 Diverticulitis of intestine, part unspecified, without perforation or abscess without bleeding 11/12/2021 Major depressive disorder, recurrent, unspecified ([facility]) 11/12/2021 Muscle spasm of back 11/12/2021 LVH (left ventricular hypertrophy) 11/12/2021 Other specified noninfective gastroenteritis and colitis 11/12/2021 Unspecified lack of coordination 11/12/2021 Acute and chronic respiratory failure with hypoxia ([facility]) 11/09/2021 Kidney disease 09/23/2021 COPD (chronic obstructive pulmonary disease) ([facility]) 09/23/2021 CAD (coronary artery disease) 09/23/2021 Dyspnea 09/23/2021 Edema 09/23/2021 Benign hypertensive heart and renal disease with heart failure and renal failure ([facility]) 09/23/2021 Hyperlipemia 09/23/2021 Orthopnea 09/23/2021 Primary malignant neoplasm ([facility]) 09/23/2021 Type 1 diabetes ([facility]) 09/23/2021 Arthritis of right acromioc (more content not included)...[facility]12-21-2023 Note01/29/232211 Physical Activity On average, how many days [...] place to sleep or slept in a mcfp (including now)? N Transportation Needs In the [...] relatives? Once How often do you attend hinduism or sikhism services? Never Do you belong to any clubs or organizations such as hinduism groups, unions, fraternal or athletic groups, or school groups? No [...] or more drinks on one occasion? Never 01/29/234 Referral Data Referral Source sort line worker Referral Reason Psychosocial assessment Patient Information Primary Caregiver Self Activities of Daily Living Assistive Device Walker;Oxygen Living Arrangement (Current/Prior to Hospitalization) Private residence (Lives at home with daughter) Ambulation Minimum assistance (Uses walker) Dressing Independent Feeding Independent Behavior Oriented Communication Can write;Talks;Understands speaking;Understands Romanian;Reads Income Information Income Source Unemployed (Retired) Discharge Planning Support Systems Children Type of Residence/Post Acute Needs Private residence;[facility] Will patient need Precert for Post Acute needs? No Patient's goal for discharge Home with continued C PT/OT Does the patient need discharge transport [...] needed. Patient also reported that she receives C PT/OT 2x/week through [facility]. Patient endorsed the use of a [...] to be connected wi (more content not included)...[facility] 01-29-2023 NotePatient event monitor showing VT >3 minutes, seems to be induced by PVC Recommended to patient and daughter to report Er urgently for evaluation Patient is asymptomatic so ok to report to [facility] If symptomatic go to closest [facility]23 NotePatient here for follow up 2 week event monitor placed at [facility] upon discharge 12/09/2022 for VT. She was admitted again to [facility] last week and amiodarone was stopped. She [...] light-headedness. All other systems reviewed and are negative.[facility] 01-06-2023 NoteUT Electrophysiology Consult Note Reason for visit: near syncope, VT/PVC? HPI: Cinthya Wilson is a 77 y.o. year old with past medical history of Orthostatic hypotension, aortic valve stenosis, CAD s/p PCI, hypertension, ckd on HD M/W/F, hld, CHF, COPD on 3L NC, syncope. She was recently admitted to [facility] after syncopal episode and hitting her head as a result. Patient was at home clearing table after dinner where she felt sudden onset of dizziness and then just passed out. She had CT scans of the head and cervical spine which were unremarkable. [facility] ER noted multiple runs of nonsustained VT and her EKG at that time showed normal sinus rhythm first-degree AV block and PVCs. She was switched from carvedilol to metoprolol and then began to experience bradycardia; at some point she was started on amiodarone for rhythm control related to VT. She was discharged with 2-week event monitor. 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 She was [...] disease) 09/23/2021 COPD (chronic obstructive pulmonary disease) ([facility]) 09/23/2021 Diastolic heart failure ([facility]) 09/23/2021 Dyspnea 09/23/2021 Edema 09/23/2021 Essential hypertension 09/23/2021 Hyperlipemia 09/23/2021 Kidney disease 09/23/2021 Orthopnea 09/23/2021 Primary malignant neoplasm ([facility]) 09/23/2021 Sleep apnea Type 1 diabetes ([facility]) 09/23/2021 PSH: Past Surgical History: Procedure Laterality [...] 40 mg by mouth in the morning. jspgcyaqmri-vamkssfxv-fxjghflj (Trelegy Ellipta) 200-62.5-25 mcg blister with device Inhale. furosemide (Lasix) 40 mg tablet Take 1.5 tablets by mouth in the morning and at bedtime. gabapentin (Neurontin) 100 mg capsule Take 100 mg by mouth twice a day. HumaLOG KwikPen Insulin 100 unit/mL injection HYDROcodone-acetaminophen (Fenton) 7.5-325 mg tablet Take 1 tablet by [...] daily as directed. karma (more content not included)...[facility]-23-2023 Discharge summary Author Tatiana Loya [facility] January 02, 2023 10:45am Note Date/Time January 02, 2023 10:45am [facility] [address] [place] [address] Discharge Summary Signed Patient: Cinthya Wilson MR#: [id number] : 1945 Acct:[id number] Age/Sex: 77 / F Adm Date: 3 Loc: Room: [address] [place] [address]: Tatiana Loya MD Copies to: [...] chronic use of hydrocodone product such as Fenton 10/325 up to Percocet 5/325 enough for [...] % (Auto) 80.8, Lymph % (Auto) 9.7, Gilchrist % (Auto) 9.4, Eos % (Auto) 0.0, Baso % (Auto) 0.1, Nucleat RBC Rel Count 0.0, Neut # (Auto) 8.5 H, Lymph # (Auto) 1.0, Gilchrist # (Auto) 1.0 H, Eos # (Auto) [...] Lutz cardiology [Other] (follow-up with your primary incinerator plant supervisor in 2-3 weeks) Documented By: Tatiana Loya MD 01/02/231042 Signed By: <Electronically signed by Tatiana Loya MD> 01/02/23 1045 [facility] Work Phone: 1(785) 568-240411-23-2023 Progress note Author Narinder [facility] January 02, 2023 10:44am Note Date/Time January 02, 2023 10:40am [facility] [address] [place] [address] Nephrology Progress Note Signed Patient: Cinthya Wilson MR#: [id number] : 1945 Acct:[id number] Age/Sex: 77 / F Adm Date: 3 Loc: Room: [address] [place] [address] Type: ADM IN Attending Dr: Tatiana Loya MD Copies to: ~ Date of Service: 01/02/2023 Subjective Subjective Narrative: Ms. 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 Patient currently gets dialysis at [facility] on MWF schedule. Patient had [...] 40 Mg Tablet) 40 mg PO QPM [facility] Stop: 12/30/23 20:59 Last Admin: 01/01/23 22:21 Dose: 40 mg Bisacodyl (Bisacodyl 5 Mg Tablet.) 5 mg PO BID PRN PRN Reason: Constipation Stop: 12/30/23 03:22 Calcium Acetate (Calcium Acetate 667 Mg Capsule) 667 mg PO TID.WITH.MEALS [facility] Stop: 12/30/23 07:59 Last Admin: 01/02/23 08:12 Dose: 667 mg Citalopram Hydrobromide (Citalopram 40 Mg Tablet) 40 mg PO DAILY [facility] Stop: 12/30/23 08:59 Last Admin: 01/02/23 08:12 Dose: 40 mg Darbepoetin Theodore (Darbepoetin Theodore In Polysorbat 40 Mcg/Ml Vial) 80 mcg IV- PUSHWE [facility] Stop: 01/01/24 08:59 Last Admin: 01/01/23 09:41 [...] BID YESSENIA Stop: 12/30/23 08:59 Last Admin: 01/02/23 08:13 Dose: 100 mg Ferric Sodium Gluconate Complex (Sodium Ferric Gluconat/Sucrose 62.5 Mg/5 Ml Vial) 125 mg IV-PUSH Mo@0900 [facility] Stop: 12/30/23 08:59 Last Admin: 12/30/22 10:03 Dose: 125 mg Furosemide (Furosemide 20 Mg Tablet) 60 mg PO BID@0800,1700 [facility] Stop: 12/30/23 08:59 Last Admin: 01/02/23 08:12 [...] Units/3 Ml Insuln.Pen) 0 units SUBCUT TID.WM.HS [facility]; Protocol Stop: 12/30/23 07:59 Last Admin: 01/02/23 08:14 Dose: 3 units Midodrine (Midodrine 5 Mg Tablet) 5 mg PO TID.7A.12P.5P PRN PRN Reason: Hypotension Stop: 12/30/23 03:21 Multivitamins (Multivitamin 1 Tab Tablet) 1 tab PO DAILY [facility] Stop: 12/30/23 08:59 Last Admin: 01/02/23 08:13 Dose: 1 tab Nystatin (Nystatin Susp 500,000 Unit/5 Ml Udc) 500,000 unit PO QID YESSENIA Stop: 12/31/23 13:59 Last Admin: 01/02/23 08:13 Dose: 500,000 unit Oxycodone/Acetaminophen (Oxycodone/Acetaminophen 5-325 Mg Tablet) 1 tab PO [id number] PRN Reason: Pain Last Admin: 01/01/23 14:19 [...] 0.5 Mg Tablet) 0.5 mg PO QHS [facility] Stop: 12/30/23 21:59 Last Admin: 01/01/23 22:21 Dose: 0.5 mg Prednisone (Prednisone 20 Mg Tablet) 40 mg PO DAILY YESSENIA Stop: 12/30/23 13:29 Last Admin: 01/02/23 08:12 Dose: 40 mg Saliva Substitute (Saliva Stimulant Agents Comb.3 44.3 Ml Swatara) 0 ml MUCOUS MEM PRN PRN PRN Reason: Dry Mouth Stop: 12/30/23 02:58 Sennosides (Sennosides 8.6 Mg Tablet) 2 tab PO QHS [facility] Stop: 12/30/23 21:59 Last Admin: 01/01/23 22:21 [...] physician into a diagnostic report(s) for Cinthya Jesusita Steve. I have reviewed the report(s) and [...] was stopped. I did check with her incinerator plant supervisor and no plan to be started since [...] <Electronically signed by MD Narinder Toussaint> 01/02/23 1044 [facility] Work Phone: 1(537) 364-234811-22-2023 Progress note Author Narinder Toussaint [facility] January 01, 2023 1:18pm Note Date/Time January 01, 2023 1:18pm [facility] [address] [place] [address] Nephrology Progress Note Signed Patient: Cinthya Wilson MR#: [id number] : 1945 Acct:[id number] Age/Sex: 77 / F Adm Date: 3 Loc: Room: [address] [place] [address] Type: ADM IN Attending Dr: Tatiana Loya MD Copies to: ~ Date of Service: 01/01/2023 Subjective Subjective Narrative: Ms. 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 Patient currently gets dialysis at [facility] on MWF schedule. Patient had [...] 40 Mg Tablet) 40 mg PO QPM [facility] Stop: 12/30/23 20:59 Last Admin: 12/31/22 21:47 Dose: 40 mg Bisacodyl (Bisacodyl 5 Mg Tablet.) 5 mg PO BID PRN PRN Reason: Constipation Stop: 12/30/23 03:22 Calcium Acetate (Calcium Acetate 667 Mg Capsule) 667 mg PO TID.WITH.MEALS [facility] Stop: 12/30/23 07:59 Last Admin: 01/01/23 08:26 [...] Mg/5 Ml Vial) 125 mg IV-PUSH Mo@0900 [facility] Stop: 12/30/23 08:59 Last Admin: 12/30/22 10:03 Dose: 125 mg Furosemide (Furosemide 20 Mg Tablet) 60 mg PO BID@0800,1700 [facility] Stop: 12/30/23 08:59 Last Admin: 01/01/23 08:26 [...] Units/3 Ml Insuln.Pen) 0 units SUBCUT TID.WM.HS [facility]; Protocol Stop: 12/30/23 07:59 Last Admin: 01/01/23 08:27 Dose: 2 units Midodrine (Midodrine 5 Mg Tablet) 5 mg PO TID.7A.12P.5P PRN PRN Reason: Hypotension Stop: 12/30/23 03:21 Multivitamins (Multivitamin 1 Tab Tablet) 1 tab PO DAILY [facility] Stop: 12/30/23 08:59 Last Admin: 11/22/23 08:26 Dose: 1 tab Nystatin (Nystatin Susp 500,000 Unit/5 Ml Udc) 500,000 unit PO QID YESSENIA Stop: 12/31/23 13:59 Last Admin: 01/01/23 08:25 Dose: 500,000 unit Oxycodone/Acetaminophen (Oxycodone/Acetaminophen 5-325 Mg Tablet) 1 tab PO [id number] PRN Reason: Pain Last Admin: 01/01/23 08:25 [...] Substitute (Saliva Stimulant Agents Comb.3 44.3 Ml Swatara) 0 ml MUCOUS MEM PRN PRN PRN [...] 10 Ml Syringe) 0 ml IV-PUSH QSHIFT [facility] Stop: 12/30/23 05:59 Last Admin: 01/01/23 06:01 [...] By: <Electronically signed by MD Narinder Toussaint> 01/01/238 [facility] Work Phone: 1(907) 535-178611-22-2023 Progress note Author Donal Farrar [facility] January 01, 2023 11:33am Note Date/Time January 01, 2023 11:28am [facility] [address] [place] [address] Cardiology Progress Note Signed Patient: Cinthya Wilson MR#: [id number] : 1945 Acct:[id number] Age/Sex: 77 / F Adm Date: 3 Loc: Room: [address] [place] [address] Type: ADM IN Attending Dr: Tatiana Loya MD Copies to: ~ Date of Service: 01/01/2023 Subjective Principal diagnosis: NSVT, sinus bradycardia on negative chronotropic therapy Interval history: Ms. Wilson is a 77 year old female with PMH significant for CAD status post PCI x1 about 10 years ago in [place], ESRD on HD, hypertension, hyperlipidemia, CHF, COPD [...] MPV Neut % (Auto) Lymph % (Auto) Gilchrist % (Auto) Eos % (Auto) Baso % (Auto) Nucleat RBC Rel Count Neut # (Auto) Lymph # (Auto) Gilchrist # (Auto) Eos # (Auto) Baso # [...] % (Auto) 87.5 Lymph % (Auto) 6.5 Gilchrist % (Auto) 5.9 Eos % (Auto) 0.0 Baso % (Auto) 0.1 Nucleat RBC Rel Count 0.0 Neut # (Auto) 8.8 H Lymph # (Auto) 0.7 L Gilchrist # (Auto) 0.6 Eos # (Auto) 0.0 [...] 0.9 Imaging and cardiology Echo: Additional comments: [facility] Main [place] [address] [place] [address] Echocardiogram Signed Patient: Cinthya Wilson : 1945 [...] FS: 24.3 % Ao root area: 6.2 [id number] ap4: 8.9 cm EDV(Teich): EDV(MOD-sp4): 149.3 ml [...] PCI x1 about 10 years ago in [place], ESRD on HD, hypertension, hyperlipidemia, CHF, COPD [...] Friday as well as 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 - Avoid AVN blockers - Continue telemetry monitoring. -No new recommendations from a cardiac standpoint. Will follow. Time spent with patient Time Spent With Patient (min): 20 Documented By: Donal Farrar MD 01/01/231122 Signed By: <Electronically signed by Donal Farrar MD> 01/01/23 1133 [facility] Work Phone: 1(249) 446-581011-22-2023 Progress note Author Tatiana Loya [facility] January 01, 2023 10:00am Note Date/Time January 01, 2023 10:00am [facility] [address] [place] [address] Hospitalist Progress Note Signed Patient: Cinthya Wilson MR#: [id number] : 1945 Acct:[id number] Age/Sex: 77 / F Adm Date: 3 Loc: Room: [address] [place] [address] Type: ADM IN Attending Dr: Tatiana Loya [...] 02:59 Saliva Stimulant Agents Comb.3 44.3 Ml Swatara MUCOUS MEM 12/30/23 02:58 PRN PRN Dry [...] chronic use of hydrocodone product such as Fenton 10/325 up to Percocet 5/325 enough for [...] signed by Tatiana Loya MD> 01/01/23 1000 [facility] Work Phone: [phone] 551-884811-21-2023 Progress note Author Edie Michel [facility] December 31, 2022 5:16pm Note Date/Time December 31, 2022 5:16pm [facility] [address] [place] [address] Cardiology Progress Note Signed Patient: Cinthya Wilson MR#: [id number] : 1945 Acct:[id number] Age/Sex: 77 / F Adm Date: 3 Loc: Room: [address] [place] [address] Type: ADM IN Attending Dr: Tatiana Loya MD Copies to: ~ Date of Service: 12/31/2022 Subjective Interval history: Ms. Wilson is a 77 year old female with PMH significant for CAD status post PCI x1 about 10 years ago in [place], ESRD on HD, hypertension, hyperlipidemia, CHF, COPD [...] % (Auto) 91.5 Lymph % (Auto) 4.3 Gilchrist % (Auto) 4.1 Eos % (Auto) 0.0 Baso % (Auto) 0.1 Nucleat RBC Rel Count 0.1 Neut # (Auto) 6.7 Lymph # (Auto) 0.3 L Gilchrist # (Auto) 0.3 Eos # (Auto) 0.0 [...] MPV Neut % (Auto) Lymph % (Auto) Gilchrist % (Auto) Eos % (Auto) Baso % (Auto) Nucleat RBC Rel Count Neut # (Auto) Lymph # (Auto) Gilchrist # (Auto) Eos # (Auto) Baso # [...] MPV Neut % (Auto) Lymph % (Auto) Gilchrist % (Auto) Eos % (Auto) Baso % (Auto) Nucleat RBC Rel Count Neut # (Auto) Lymph # (Auto) Gilchrist # (Auto) Eos # (Auto) Baso # [...] PCI x1 about 10 years ago in [place], ESRD on HD, hypertension, hyperlipidemia, CHF, COPD [...] Friday as well as 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 -Spoke to daughter today, she will drop off event monitor at cardiac diagnosticsdepartment - Avoid AVN blockers - Continue telemetry monitoring. - Will follow. Documented By: Edie Michel MD 12/31/221710 Signed By: <Electronically signed by Edie Michel MD> 12/31/221715 [facility] Work Phone: [phone] Progress note Author Narinder Toussaint [facility] December 31, 2022 12:23pm Note Date/Time December 31, 2022 12:18pm [facility] [address] [place] [address] Nephrology Progress Note Signed Patient: Cinthya Wilson MR#: [id number] : 1945 Acct:[id number] Age/Sex: 77 / F Adm Date: 3 Loc: Room: 4X8615-1 Type: ADM IN Attending Dr: Tatiana Loya MD Copies to: ~ Date of Service: 12/31/2022 Subjective Subjective Narrative: Ms. 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 Patient currently gets dialysis at [facility] on MWF schedule. Patient had [...] 40 mg Bisacodyl (Bisacodyl 5 Mg Tablet.) 5 mg PO BID PRN PRN Reason: [...] 100 Mg Capsule) 100 mg PO BID [facility] Stop: 12/30/23 08:59 Last Admin: 12/31/22 08:37 Dose: 100 mg Ferric Sodium Gluconate Complex (Sodium Ferric Gluconat/Sucrose 62.5 Mg/5 Ml Vial) 125 mg IV-PUSH Mo@0900 [facility] Stop: 12/30/23 08:59 Last Admin: 12/30/22 10:03 Dose: 125 mg Furosemide (Furosemide 20 Mg Tablet) 60 mg PO BID@0800,1700 [facility] Stop: 12/30/23 08:59 Last Admin: 12/31/22 08:37 [...] Units/3 Ml Insuln.Pen) 0 units SUBCUT TID.WM.HS [facility]; Protocol Stop: 12/30/23 07:59 Last Admin: 12/31/22 11:55 Dose: 3 units Midodrine (Midodrine 5 Mg Tablet) 5 mg PO TID.7A.12P.5P PRN PRN Reason: Hypotension Stop: 12/30/23 03:21 Multivitamins (Multivitamin 1 Tab Tablet) 1 tab PO DAILY [facility] Stop: 12/30/23 08:59 Last Admin: 12/31/22 08:37 Dose: 1 tab Nystatin (Nystatin Susp 500,000 Unit/5 Ml Udc) 500,000 unit PO QID [facility] Stop: 12/31/23 13:59 Oxycodone/Acetaminophen (Oxycodone/Acetaminophen 5-325 Mg Tablet) 1 tab PO [id number] PRN Reason: Pain Last Admin: 12/30/22 16:50 Dose: 1 tab Pantoprazole Sodium (Pantoprazole 40 Mg Tablet.) 40 mg PO DAILY [facility] Stop: 12/30/23 08:59 Last Admin: 12/31/22 08:37 Dose: 40 mg Polyethylene Glycol (Polyethylene Glycol 3350 17 Gm Powd.Pack) 17 gm PO BID [facility] Stop: 12/31/23 08:59 Last Admin: 12/31/22 08:37 Dose: Not Given Pramipexole Dihydrochloride (Pramipexole 0.5 Mg Tablet) 0.5 mg PO QHS [facility] Stop: 12/30/23 21:59 Last Admin: 12/30/22 22:13 Dose: 0.5 mg Prednisone (Prednisone 20 Mg Tablet) 40 mg PO DAILY [facility] Stop: 12/30/23 13:29 Last Admin: 12/31/22 08:37 Dose: 40 mg Saliva Substitute (Saliva Stimulant Agents Comb.3 44.3 Ml Swatara) 0 ml MUCOUS MEM PRN PRN PRN [...] <Electronically signed by MD Narinder Toussaint> 12/31/22 0277 [facility] Work Phone: [phone] Progress note Author Tatiana Loya [facility] December 31, 2022 11:33am Note Date/Time December 31, 2022 11:33am [facility] [address] [place] [address] Hospitalist Progress Note Signed Patient: Cinthya Wilson MR#: [id number] : 1945 Acct:[id number] Age/Sex: 77 / F Adm Date: 3 Loc: Room: [address] [place] [address] Type: ADM IN Attending Dr: Tatiana Loya [...] 60 Mcg/Ml Vial IV-PUSH 01/01/24 08:28 WE [facility] Dextrose 0 gm 12/30/22 03:23 Dextrose 50% In Water 25 Gm/50 Ml Syringe IV-PUSH 12/30/23 03:22 PRN PRN Hypoglycemia Diclofenac Sodium 4 gm 12/30/22 09:00 12/31/22 08:44 Diclofenac Sodium 1% Gel 100 Gm Tube TOPICAL 12/30/23 08:59 Not Given QID [facility] Docusate Sodium 100 mg 12/30/22 09:00 12/31/22 [...] 12/30/22 09:00 12/31/22 08:37 Pantoprazole 40 Mg Tablet. PO 12/30/23 08:59 [...] 02:59 Saliva Stimulant Agents Comb.3 44.3 Ml Swatara MUCOUS MEM 12/30/23 02:58 PRN PRN Dry [...] chronic use of hydrocodone product such as Fenton 10/325 up to Percocet 5/325 enough for [...] <Electronically signed by Tatiana Loya MD> 12/31/22 1784 [facility] Work Phone: [phone] Consult note Author Edie Michel [facility] December 30, 2022 8:49pm Note Date/Time December 30, 2022 8:37pm [facility] [address] [place] [address] Cardiology Consult Note Signed Patient: Cinthya Wilson MR#: [id number] : 1945 Acct:[id number] Age/Sex: 77 / F Adm Date: 3 Loc: Room: [address] [place] [address] Type: ADM IN Attending Dr: Tatiana Loya MD Copies to: MD Lily Duran II, MD Linda Njoroge, MD~ Cardiology HPI History of Present Illness Consult Date: 12/30/22 Reason for Consult: Bradycardia and history of VT HPI: Ms. Wilson is a 77 year old female with PMH significant for CAD status post PCI x1 about 10 years ago in [place], ESRD on HD, hypertension, hyperlipidemia, CHF, COPD [...] negative unless noted below or in HPI [facility] Medical History Anemia Anxiety Anxiety and depression [...] Lymph # (Auto) 1.2 1.1 (1.00-4.8) x10E3/uL Gilchrist # (Auto) 1.3 H 1.2 H (0.0-0.8) [...] @ As Directed MISCELLANE .Q0M PRN Rx#: [id number] Oral 360 / 360 Output: Urine 0 [...] PCI x1 about 10 years ago in [place], ESRD on HD, hypertension, hyperlipidemia, CHF, COPD [...] <Electronically signed by Edie Michel MD> 12/30/222048 [facility] Work Phone: [phone]) 139-654111-20-2023 Consult note Author Narinder Toussaint [facility] December 30, 2022 12:46pm Note Date/Time December 30, 2022 12:46pm [facility] [address] [place] [address] Nephrology Consult Note Signed Patient: Cinthya Wilson MR#: [id number] : 1945 Acct:[id number] Age/Sex: 77 / F Adm Date: 3 Loc: Room: 4D4718-2 Type: ADM IN Attending Dr: Tatiana Loya [...] recurrent CHF. Patient currently gets dialysis at [facility] on MWF schedule. Patient had [...] and no additional complaints, except as documented [facility] Medical History Anemia Anxiety Anxiety and depression [...] Stop: 12/30/23 20:59 Bisacodyl (Bisacodyl 5 Mg Tablet.) 5 mg PO BID PRN PRN Reason: [...] 20 Mg Tablet) 60 mg PO BID@0800,1700 [facility] Stop: 12/30/23 08:59 Last Admin: 12/30/22 08:20 [...] Units/3 Ml Insuln.Pen) 0 units SUBCUT TID.WM.HS [facility]; Protocol Stop: 12/30/23 07:59 Last Admin: 12/30/22 11:35 Dose: 2 units Midodrine (Midodrine 5 Mg Tablet) 5 mg PO TID.7A.12P.5P PRN PRN Reason: Hypotension Stop: 12/30/23 03:21 Multivitamins (Multivitamin 1 Tab Tablet) 1 tab PO DAILY [facility] Stop: 12/30/23 08:59 Last Admin: 12/30/22 08:20 Dose: 1 tab Oxycodone/Acetaminophen (Oxycodone/Acetaminophen 5-325 Mg Tablet) 1 tab PO [id number] PRN Reason: Pain Pantoprazole Sodium (Pantoprazole 40 Mg Tablet.Dr) 40 mg PO DAILY [facility] Stop: 12/30/23 08:59 Last Admin: 12/30/22 08:20 Dose: 40 mg Pramipexole Dihydrochloride (Pramipexole 0.5 Mg Tablet) 0.5 mg PO QHS [facility] Stop: 12/30/23 21:59 Saliva Substitute (Saliva Stimulant Agents Comb.3 44.3 Ml Swatara) 0 ml MUCOUS MEM PRN PRN PRN Reason: Dry Mouth Stop: 12/30/23 02:58 Sennosides (Sennosides 8.6 Mg Tablet) 2 tab PO QHS [facility] Stop: 12/30/23 21:59 Sodium Chloride (Sodium Chloride 0.9 % 10 Ml Syringe) 0 ml IV-PUSH PRN PRN PRN Reason: Flush Stop: 12/29/23 22:02 Last Admin: 12/30/22 10:03 Dose: 10 ml Sodium Chloride (Sodium Chloride 0.9 % 10 Ml Syringe) 0 ml IV-PUSH QSHIFT [facility] Stop: 12/30/23 05:59 Last Admin: 12/30/22 06:29 Dose: 10 ml Sodium Chloride (Sodium Chloride 0.9 % 10 Ml Syringe) 0 ml IV-PUSH PRN PRN PRN Reason: Flush Stop: 12/30/23 08:28 Vitamin D (Cholecalciferol 25 Mcg (1,000 Units) Tablet) 25 mcg PO DAILY [facility] Stop: 12/30/23 08:59 Last Admin: 12/30/22 08:20 [...] Matamoros Jr., D.O.12/30/2022 9:27 AM Dictation Location: [place] [address] Abdomen X-Ray 12/30/22 02:49 IMPRESSION: MODERATE STOOL BURDEN IS SEEN INVOLVING THE LEFT COLON WITH GASEOUS DISTENTION OF PRESUMED RIGHT-SIDED COLONIC LOOPS. FINDINGS MAY RELATE TO CONSTIPATION. IF UNDERLYING OBSTRUCTION IS OF CLINICAL CONCERN, FURTHER EVALUATION WITH CT IS RECOMMENDED. Impression dictated by: Quintin Matamoros Jr., D.O.12/30/2022 9:28 AM Dictation Location: [place] [address] Liver Ultrasound 12/30/22 03:00 IMPRESSION: NO ACUTE PROCESS. . Impression dictated by: Quintin Matamoros Jr., D.O.12/30/2022 10:31 AM Dictation Location: [facility] Any impression(s) listed above is documentation that [...] signed by MD Narinder Toussaint> 12/30/22 1246 [facility] Work Phone: [phone]) 728-669311-20-2023 Progress note Author Tatiana Loya [facility] December 30, 2022 11:46am Note Date/Time December 30, 2022 11:46am [facility] [address] [place] [address] Hospitalist Progress Note Signed Patient: Cinthya Wilson MR#: [id number] : 1945 Acct:[id number] Age/Sex: 77 / F Adm Date: 3 Loc: Room: [address] [place] [address] Type: ADM IN Attending Dr: Tatiana Loya [...] Insuln.Pen SUBCUT 12/30/23 07:59 Not Given TID.WM.HS [facility] Protocol Midodrine 5 mg 12/30/22 03:22 Midodrine 5 Mg Tablet PO 12/30/23 03:21 TID.7A.12P.5P PRN Hypotension Multivitamins 1 tab 12/30/22 09:00 12/30/22 08:20 Multivitamin 1 Tab Tablet PO 12/30/23 08:59 1 tab DAILY [facility] Administration Oxycodone/Acetaminophen 1 tab 12/30/22 03:22 Oxycodone/Acetaminophen 5-325 Mg Tablet PO Q6HR PRN Pain Pantoprazole Sodium 40 mg 12/30/22 09:00 12/30/22 08:20 Pantoprazole 40 Mg Tablet. PO 12/30/23 08:59 40 mg DAILY [facility] Administration Pramipexole Dihydrochloride 0.5 mg 12/30/22 22:00 Pramipexole 0.5 Mg Tablet PO 12/30/23 21:59 QHS [facility] Saliva Substitute 0 ml 12/30/22 02:59 Saliva Stimulant Agents Comb.3 44.3 Ml Swatara MUCOUS MEM 12/30/23 02:58 PRN PRN Dry [...] chronic use of hydrocodone product such as Fenton 10/325 up to Percocet 5/325 enough for [...] signed by Tatiana Loya MD> 12/30/22 1146 [facility] Work Phone: [phone] 370-790011-20-2023 History and physical note Author Carlton Mtz [facility] December 30, 2022 3:22am Note Date/Time December 30, 2022 3:06am [facility] [address] [place] [address] Hospitalist H&P Signed Patient: Cinthya Wilson MR#: [id number] : 1945 Acct:[id number] Age/Sex: 77 / F Adm Date: 3 Loc: Room: [address] [place] [address] Type: ADM IN Attending Dr: Carlton Mtz [...] chronic use of hydrocodone product such as Fenton 10/325 up to Percocet 5/325 enough for [...] except as mentioned elsewhere in the documentation. [facility] Medical History Anemia Anxiety Anxiety and depression [...] % (Auto) 12.9 % (.) 12/29/22 22:20 Gilchrist % (Auto) 13.9 % (.) 12/29/22 22:20 Eos % (Auto) 1.0 % (.) 12/29/22 22:20 Baso % (Auto) 0.3 % (.) 12/29/22 22:20 Nucleat RBC Rel Count 0.0 /100 WBC (0-0.5) 12/29/22 22:20 Neut # (Auto) 6.9 x10E3/uL (1.8-7.7) 12/29/22 22:20 Lymph # (Auto) 1.2 x10E3/uL (1.00-4.8) 12/29/22 22:20 Gilchrist # (Auto) 1.3 x10E3/uL (0.0-0.8) H 12/29/22 [...] well as RSV I will check a [facility] nasal PCR for more viral pathogens. I [...] <Electronically signed by Carlton Mtz DO> 12/30/22 0322 [facility] Work Phone: [phone] [facility] Chief Complaint: [...] weeks ago and she was transferred from [facility] to [facility] in [place] because her nephrology group is there. HPI: [...] disease) (09/23/2021), COPD (chronic obstructive pulmonary disease) ([facility]) (09/23/2021), Diastolic heart failure ([facility]) (09/23/2021), Dyspnea (09/23/2021), Edema (09/23/2021), Essential hypertension (09/23/2021), Hyperlipemia (09/23/2021), Kidney disease (09/23/2021), Orthopnea (09/23/2021), Primary malignant neoplasm ([facility]) (09/23/2021), Sleep apnea, and Type 1 diabetes ([facility]) (09/23/2021). Surgical History She has a past [...] mouth in the morning., Disp: , Rfl: oqnbuexhnxn-djuwerzey-zjdqrowa (Trelegy Ellipta) 200-62.5-25 mcg blister with device, Inhale., Disp: , Rfl: furosemide (Lasix) 40 mg tablet, Take 1.5 tablets by mouth in the morning and at bedtime., Disp: , Rfl: HumaLOG KwikPen Insulin 100 unit/mL injection, , Disp: , Rfl: HYDROcodone-acetaminophen (Fenton) 7.5-325 mg tablet, Take 1 tablet by [...] rales, rhonchi, or wheezi (more content not included)...[facility] 12-16-2022 Progress note Author Edie Michel [facility] December 16, 2022 4:32pm Note Date/Time December 16, 2022 4 :23pm [facility] [address] [place] [address] Cardiology Progress Note Signed Patient: Cinthya Wilson MR#: [id number] : 1945 Acct:[id number] Age/Sex: 77 / F Adm Date: 3 Loc: Room: [address] [place] [address] Type: ADM IN Attending Dr: Annette Tenorio [...] Code(s): I25.10 - Atherosclerotic heart disease of algaaciq coronary artery without angina pectoris Status: Acute Plan Continue same. Hold off beta-blockers. I do not believe they are beneficial inthis particular situation. Amiodarone has significantly stabilized her rhythm and her net cardiac output is improved as a result. Continue Amiodarone 400mg BID for 14 days followed by 200mg daily thereafter. 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 Documented By: Edie Michel MD 12/16/22 1618 Signed By: <Electronically signed by Edie Michel MD> 12/16/22 1632 [facility] Work Phone: [phone]) [phone] Progress note Author Geronimo Fofana [facility] December 16, 2022 2:08pm Note Date/Time December 16, 2022 2 :08pm [facility] [address] [place] [address] Nephrology Progress Note Signed Patient: Cinthya Wilson MR#: [id number] : 1945 Acct:[id number] Age/Sex: 77 / F Adm Date: 3 Loc: 4P Room: [address] [place] [address] Type: ADM IN Attending Dr: Annette Tenorio MD Copies to: ~ Date of Service: 12/16/2022 Subjective Subjective Narrative: Ms. 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 Patient currently gets dialysis at [facility] on MWF schedule. Patient had recent admission on December 07 for syncopal episode and she was found to have episodes of nonsustained V. tach with prolonged QT interval. She was evaluated by cardiology and carvedilol was switched to metoprolol and she was set to follow-up with cardiology as outpatient. She did go to ER at [facility] for shortness of breath and generalized weakness. Temperature was 99.9 and she was found to be bradycardic 35 to 40 bpmwith sinus bradycardia rhythm with occasional bigeminal rhythm. Atropine was given with persistent arrhythmia with bigeminy and subsequently patient was started on amiodarone drip and transferred to [facility]. Interval history: Patient was seen and [...] Dose: 400 mg Aspirin (Aspirin 81 Mg Tablet.) 81 [...] 20 Mg Tablet) 60 mg PO BID.WITH.MEALS [facility] Stop: 12/14/23 07:59 Last Admin: 12/16/22 13:42 [...] Units/3 Ml Insuln.Pen) 0 units SUBCUT TID.WM.HS [facility]; Protocol Stop: 12/14/23 07:59 Last Admin: 12/16/22 13:42 Dose: Not Given Ipratropium Macarthur (Ipratropium Macarthur 0.5 Mg/2.5 Ml Vial.Neb) 0.5 mg INHALATION QID.RESP [facility] Stop: 12/14/23 07:59 Last Admin: 12/16/22 12:16 Dose: Not Given Oxycodone/Acetaminophen (Oxycodone/Acetaminophen 5-325 Mg Tablet) 1 tab PO [id number] PRN Reason: Pain Last Admin: 12/16/22 12:18 Dose: 1 tab Pantoprazole Sodium (Pantoprazole 40 Mg Tablet.Dr) 40 mg PO DAILY [facility] Stop: 12/14/23 08:59 Last Admin: 12/16/22 13:41 Dose: 40 mg Pramipexole Dihydrochloride (Pramipexole 0.5 Mg Tablet) 0.5 mg PO HS [facility] Stop: 12/14/23 21:59 Last Admin: 12/15/22 21:38 Dose: 0.5 mg Sennosides (Sennosides 8.6 Mg Tablet) 1 tab PO BID [facility] Stop: 12/14/23 08:59 Last Admin: [...] accordingly. Documented By: Geronimo Fofana MD 12/16/22 1405 Signed By: <Electronically signed by Geronimo Fofana MD> 12/16/22 1402 [facility] Work Phone: [phone]) [phone] Hospital Discharge instructionsAmbulatory Orders* Initiate Home Health Time Frame: 12/16/22, Location: Determined By Patient Additional Instructions I may not have addressed or treated all of your medical illnesses or the abnormal blood work or imaging studies during this hospitalization. Please ask your primary care provider to obtain [facility] records entirely to follow up on all of the abnormal physical, laboratory, and imaging findings that I have not addressed. Please return back to the emergency room or seek medical attention if your symptoms worsen or return. Discharging you from [facility] does not mean that your medical [...] cover area of blisters to left also [facility] Work Phone: [phone]) 389-529311-06-2023 Discharge summary Author Annette Tenorio [facility] December 17, 2022 7:16am Note Date/Time December 16, 2022 9 :22am [facility] [address] [place], [place] [address] Discharge Summary Signed Patient: Cinthya Wilson MR#: [id number] : 1945 Acct:[id number] Age/Sex: 77 / F Adm Date: 3 Loc: Room: 9H8853-[address]: Annette Tenorio MD Copies to: [...] ask her primary care doctor to obtain [facility] record entirely to address abnormalities seen on [...] Plan Discharge Plan Patient Disposition: Home Health [facility] Activity: No Activity Restriction Diet: Diabetic and Renal Additional Instructions: I may not have addressed or treated all of your medical illnesses or the abnormal blood work or imaging studies during this hospitalization. Please ask your primary care provider to obtain [facility] records entirely to follow up on all of the abnormal physical, laboratory, and imaging findings that I have not addressed. Please return back to the emergency room or seek medical attention if your symptoms worsen or return. Discharging you from [facility] does not mean that your medical [...] if needed.) Documented By: Annette Tenorio MD 12/16/22 0921 Signed By: <Electronically signed by Annette Tenorio MD> 12/17/22 0716 [facility] Work Phone: 1(864) 418-441011-05-2023 Progress note Author Erica Armenta [facility] December 15, 2022 1:23pm Note Date/Time December 15, 2022 1 :23pm [facility] [address] [place] [address] Hospitalist Progress Note Signed Patient: Cinthya Wilson MR#: [id number] : 1945 Acct:[id number] Age/Sex: 77 / F Adm Date: 3 Loc: Room: [address] [place] [address] Type: ADM IN Attending Dr: Erica Armenta [...] 09:00 12/15/22 08:38 Aspirin 81 Mg Tablet.Dr PO 12/14/23 08:59 81 mg DAILY [facility]ESS[facility] Administration [...] 1 units TID.WM.HS [facility] Administration Protocol Ipratropium Macarthur 0.5 mg 12/14/22 08:00 12/15/22 12:13 Ipratropium [place]ur 0.5 Mg/2.5 Ml Vial.Neb INHALATION 12/14/23 07:59 0.5 mg QID.RESP YESSENIA Administration Midodrine 5 mg 12/13/22 22:49 Midodrine 5 Mg Tablet PO 12/13/23 22:48 TID.7A.12P.5P PRN Hypotension Oxycodone/Acetaminophen 1 tab 12/13/22 22:49 12/15/22 04:29 Oxycodone/Acetaminophen 5-325 Mg Tablet PO 1 tab Q4HR PRN Administration Pain Pantoprazole Sodium 40 mg 12/14/22 09:00 12/15/22 08:38 Pantoprazole 40 Mg Tablet.Dr PO 12/14/23 08:59 [...] <Electronically signed by Erica Armenta MD> 12/15/221322 [facility] Work Phone: 1([phone] 183-475711-05-2023 Progress note Author Narinder Toussaint [facility] December 15, 2022 12:01pm Note Date/Time December 15, 2022 1 1:58am [facility] [address] [place] [address] Nephrology Progress Note Signed Patient: Cinthya Wilson MR#: [id number] : 1945 Acct:[id number] Age/Sex: 77 / F Adm Date: 3 Loc: Room: [address] [place] [address] Type: ADM IN Attending Dr: Erica Armenta MD Copies to: ~ Date of Service: 12/15/2022 Subjective Subjective Narrative: Ms. 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 Patient currently gets dialysis at [place] dialysis unit on MWF schedule. Patient had recent admission on December 07 for syncopal episode and she was found to have episodes of nonsustained V. tach with prolonged QT interval. She was evaluated by cardiology and carvedilol was switched to metoprolol and she was set to follow-up with cardiology as outpatient. She did go to ER at [facility] for shortness of breath and generalized weakness. Temperature was 99.9 and she was found to be bradycardic 35 to 40 bpmwith sinus bradycardia rhythm with occasional bigeminal rhythm. Atropine was given with persistent arrhythmia with bigeminy and subsequently patient was started on amiodarone drip and transferred to [facility]. Interval history: Patient was started on IV amiodarone since admission and switch to oral amiodarone with improvement of bradycardia and no evidence of ventricular tachycardia so far. Heart rate ranged between 55 to 60/min with stable blood pressure. Patient had hemodialysis just before admission and she currently receives dialysis on MWF schedule at [place] dialysis unit. Next hemodialysis will be tomorrow if she still in-house. 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 incinerator plant supervisor recommended additional 24- hour monitoring of rhythm [...] Dose: 400 mg Aspirin (Aspirin 81 Mg Tablet.) 81 mg PO DAILY YESSENIA Stop: 12/14/23 08:59 Last Admin: 12/15/22 08:38 Dose: 81 mg Atorvastatin Calcium (Atorvastatin 40 Mg Tablet) 40 mg PO QPM YESSENIA Stop: 12/14/23 20:59 Last Admin: 12/14/22 21:25 Dose: 40 mg Budesonide/Formoterol Fumarate (Budesonide/Formoterol 80-4.5 Mcg 60 Puff/6.9 Gm Hfa.Aer.Ad) 2 puff INHALATION BID [facility] Stop: 12/14/23 08:59 Last Admin: 12/15/22 08:06 Dose: 2 puff Calcium Acetate (Calcium Acetate 667 Mg Capsule) 667 mg PO TID.WITH.MEALS YESSENIA Stop: 12/14/23 07:59 Last Admin: 12/15/22 08:38 Dose: 667 mg Dextrose (Dextrose 50% In Water 25 Gm/50 Ml Syringe) 0 gm IV-PUSH PRN PRN PRN Reason: Hypoglycemia Stop: 12/13/23 23:58 Furosemide (Furosemide 20 Mg Tablet) 60 mg PO BID.WITH.MEALS [facility] Stop: 12/14/23 07:59 Last Admin: 12/15/22 08:38 Dose: 60 mg Glucose (Dextrose 40% Gel 15 Gm Tube) 0 gm PO PRN PRN PRN Reason: Hypoglycemia Stop: 12/13/23 23:58 Heparin Sodium (Porcine) (Heparin 5,000 Unit/Ml Vial) 5,000 unit SUBCUT Q8HR [facility] Stop: 12/13/23 21:59 Last Admin: 12/15/22 05:25 Dose: Not Given Insulin Aspart (Insulin Aspart 300 Units/3 Ml Insuln.Pen) 0 units SUBCUT TID.WM.HS [facility]; Protocol Stop: 12/14/23 07:59 Last Admin: 12/15/22 08:38 Dose: 1 units Ipratropium Macarthur (Ipratropium Macarthur 0.5 Mg/2.5 Ml Vial.Neb) 0.5 mg INHALATION QID.RESP YESSENIA Stop: 12/14/23 07:59 Last Admin: 12/15/22 08:05 Dose: 0.5 mg Midodrine (Midodrine 5 Mg Tablet) 5 mg PO TID.7A.12P.5P PRN PRN Reason: Hypotension Stop: 12/13/23 22:48 Oxycodone/Acetaminophen (Oxycodone/Acetaminophen 5-325 Mg Tablet) 1 tab PO [id number] PRN Reason: Pain Last Admin: 12/15/22 04:29 Dose: 1 tab Pantoprazole Sodium (Pantoprazole 40 Mg Tablet.) 40 mg PO DAILY YESSENIA Stop: 12/14/23 08:59 Last Admin: 12/15/22 08:38 Dose: 40 mg Pramipexole Dihydrochloride (Pramipexole 0.5 Mg Tablet) 0.5 mg PO HS YESSENIA Stop: 12/14/23 21:59 Last Admin: 12/14/22 21:25 Dose: 0.5 mg Sennosides (Sennosides 8.6 Mg Tablet) 1 tab PO BID YESSENIA Stop: 12/14/23 08:59 Last Admin: [...] gets dialysis admitted for dialysis unit on [facility] schedule. (2) Nonsustained ventricular tachycardia: Assessment/Problem Details: [...] signed by MD Narinder Toussaint> 12/15/22 1201 [facility] Work Phone: [phone] Progress note Author Armando German [facility] December 15, 2022 10:53am Note Date/Time December 15, 2022 1 0:53am [facility] [address] [place] [address] Cardiology Progress Note Signed Patient: Cinthya Wilson MR#: [id number] : 1945 Acct:[id number] Age/Sex: 77 / F Adm Date: 3 Loc: Room: [address] [place] [address] Type: ADM IN Attending Dr: Erica Armenta [...] MPV Neut % (Auto) Lymph % (Auto) Gilchrist % (Auto) Eos % (Auto) Baso % (Auto) Nucleat RBC Rel Count Neut # (Auto) Lymph # (Auto) Gilchrist # (Auto) Eos # (Auto) Baso # [...] % (Auto) 79.3 Lymph % (Auto) 10.4 Gilchrist % (Auto) 8.5 Eos % (Auto) 1.5 Baso % (Auto) 0.3 Nucleat RBC Rel Count 0.0 Neut # (Auto) 8.5 H Lymph # (Auto) 1.1 Gilchrist # (Auto) 0.9 H Eos # (Auto) [...] Code(s): I25.10 - Atherosclerotic heart disease of algaaciq coronary artery without angina pectoris Status: Acute Plan Continue same. Hold off beta-blockers. I do not believe they are beneficial inthis particular situation. Amiodarone has significantly stabilized her rhythm and her net cardiac output is improved as a result. Continue same. Probably discharge Friday on amiodarone 200 mg a day. Documented By: Armando German MD 1050 Signed By: <Electronically signed by MD Armando German> 12/15/221052 [facility] Work Phone: [phone]) [phone] Progress note Author Hamlet Nayak [facility] December 15, 2022 10:01am Note Date/Time December 15, 2022 1 0:01am [facility] [address] [place] [address] Progress Note Signed Patient: Cinthya Wilson MR#: [id number] : 1945 Acct:[id number] Age/Sex: 77 / F Adm Date: 3 Loc: Room: [address] [place] [address] Type: ADM IN Attending Dr: Erica Armenta [...] signed by MD Hamlet Nayak> 12/15/22 1001 [facility] Work Phone: [phone] Progress note Author Erica Armenta [facility] December 14, 2022 2:21pm Note Date/Time December 14, 2022 2 :21pm [facility] [address] [place] [address] Hospitalist Progress Note Signed Patient: Cinthya Wilson MR#: [id number] : 1945 Acct:[id number] Age/Sex: 77 / F Adm Date: 3 Loc: Room: [address] [place] [address] Type: ADM IN Attending Dr: Erica Armenta [...] 09:00 12/14/22 08:17 Aspirin 81 Mg Tablet.Dr PO 12/14/23 08:59 81 mg DAILY YESSENIA Administration [...] 2 units TID.WM.HS YESSENIA Administration Protocol Ipratropium Macarthur 0.5 mg 12/14/22 08:00 12/14/22 11:56 Ipratropium Macarthur 0.5 Mg/2.5 Ml Vial.Neb INHALATION 12/14/23 07:59 [...] Pramipexole 0.5 Mg Tablet PO 12/14/23 21:59 [facility] Sennosides 1 tab 12/14/22 09:00 12/14/22 08:17 [...] coverage Documented By: Erica Armenta MD 12/14/22 1415 Signed By: <Electronically signed by Erica Armenta MD> 12/14/22 1421 [facility] Work Phone: [phone] Consult note Author Narinder Toussaint [facility] December 14, 2022 1:59pm Note Date/Time December 14, 2022 1 :44pm [facility] [address] [place] [address] Nephrology Consult Note Signed Patient: Cinthya Wilson MR#: [id number] : 1945 Acct:[id number] Age/Sex: 77 / F Adm Date: 3 Loc: Room: [address] [place] [address] Type: ADM IN Attending Dr: Erica Armenta [...] recurrent CHF. Patient currently gets dialysis at [place] dialysis unit on MWF schedule. Patient had recent admission on December 07 for syncopal episode and she was found to have episodes of nonsustained V. tach with prolonged QT interval. She was evaluated by cardiology and carvedilol was switched to metoprolol and she was set to follow-up with cardiology as outpatient. She did go to ER at [facility] for shortness of breath and generalized weakness. Temperature was 99.9 and she was found to be bradycardic 35 to 40 bpmwith sinus bradycardia rhythm with occasional bigeminal rhythm. Atropine was given with persistent arrhythmia with bigeminy and subsequently patient was started on amiodarone drip and transferred to [facility]. Patient was seen and examined the [...] negative unless noted below or in HPI [facility] Medical History (Updated 12/09/22 @ 09:40 by [...] 200 Mg Tablet) 400 mg PO BID [facility] Stop: 12/14/23 10:09 Aspirin (Aspirin 81 Mg [...] 20 Mg Tablet) 60 mg PO BID.WITH.MEALS [facility] Stop: 12/14/23 07:59 Last Admin: 12/14/22 08:17 Dose: 60 mg Glucose (Dextrose 40% Gel 15 Gm Tube) 0 gm PO PRN PRN PRN Reason: Hypoglycemia Stop: 12/13/23 23:58 Heparin Sodium (Porcine) (Heparin 5,000 Unit/Ml Vial) 5,000 unit SUBCUT Q8HR [facility] Stop: 12/13/23 21:59 Last Admin: 12/14/22 08:57 Dose: 5,000 unit Amiodarone HCl 450 mg/ (Dextrose) 250 mls @ 16.667 mls/hr IV .Q15H [facility] Stop: 12/13/23 22:44 Last Admin: 12/14/22 00:42 Dose: 0.5 mg/min, 16.67 mls/hr Insulin Aspart (Insulin Aspart 300 Units/3 Ml Insuln.Pen) 0 units SUBCUT TID.WM.[facility]; Protocol Stop: 12/14/23 07:59 Last Admin: 12/14/22 12:39 Dose: 2 units Ipratropium Macarthur (Ipratropium Macarthur 0.5 Mg/2.5 Ml Vial.Neb) 0.5 mg INHALATION QID.RESP [facility] Stop: 12/14/23 07:59 Last Admin: 12/14/22 11:56 Dose: 0.5 mg Midodrine (Midodrine 5 Mg Tablet) 5 mg PO TID.7A.12P.5P PRN PRN Reason: Hypotension Stop: 12/13/23 22:48 Oxycodone/Acetaminophen (Oxycodone/Acetaminophen 5-325 Mg Tablet) 1 tab PO [id number] PRN Reason: Pain Pantoprazole Sodium (Pantoprazole 40 Mg Tablet.Dr) 40 mg PO DAILY [facility] Stop: 12/14/23 08:59 Last Admin: 12/14/22 08:17 Dose: 40 mg Pramipexole Dihydrochloride (Pramipexole 0.5 Mg Tablet) 0.5 mg PO [facility] Stop: 12/14/23 21:59 Sennosides (Sennosides 8.6 Mg Tablet) 1 tab PO BID YESSENIA Stop: 12/14/23 08:59 Last Admin: [...] <Electronically signed by MD Narinder Toussaint> 12/14/22 7459 [facility] Work Phone: [phone]) [phone] Consult note Author Hamlet Nayak [facility] December 14, 2022 11:06am Note Date/Time December 14, 2022 1 1:02am [facility] [address] [place] [address] Pulmonology Consult Note Signed Patient: Cinthya Wilson MR#: [id number] : 1945 Acct:[id number] Age/Sex: 77 / F Adm Date: 3 Loc: Room: [address] [place] [address] Type: ADM IN Attending Dr: Erica Armenta MD Copies to: MD Lily Vázquez II, MD Safwan Kathi, MD~ HPI Date/Time of Consultation: Date of Service: 12/14/2022 Time of Service: 10:57 Consulting Provider: Hamlet Nayak Requesting Provider: Erica Armenta History of Present Illness History of present illness: Ms. Wilson is a 77 year old female seen at the request of the hospitalist service for critical care management. Patient was excepted in transfer from [facility] emergency department after her dialysis with patient complaining of dizziness and lightheadedness. 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 Patient was subsidy transferred to the [facility] intensive care. Note that patient had prior hospitalization at [facility] for similar condition with medical therapy previously having been beta-madhu. There is also note note for concern of sick sinus syndrome which made management with beta-blockers more difficult. Patient also has a prior history of coronary disease. Patient is a non-smoker but has a diagnosis of COPD per Dr. Cheek in [place] with the patient normally on Trelegy. She is also reportedly on supplemental oxygen at 3 L/min at home. Patient reports that her respiratory status is improved and her presenting symptoms are improved. She has no other new complaints. Review of Systems Review of Systems All other systems reviewed & are negative unless noted below or in HPI [facility] Medical History (Updated 12/09/22 @ 09:40 by [...] <Electronically signed by MD Hamlet Nayak> 12/14/22 1817 [facility] Work Phone: 1([phone] 565-363211-04-2023 Consult note Author Armando German [facility] December 14, 2022 10:11am Note Date/Time December 14, 2022 1 0:11am [facility] [address] [place] [address] Cardiology Consult Note Signed Patient: Cinthya Wilson MR#: [id number] : 1945 Acct:[id number] Age/Sex: 77 / F Adm Date: 3 Loc: Room: [address] [place] [address] Type: ADM IN Attending Dr: Erica Armenta MD Copies to: MD Erica Bourgeois II, MD William Patrick McGuinn, MD~ Cardiology HPI History of Present Illness Consult Date: 12/14/22 Reason for Consult: Nonsustained ventricular tachycardia with near syncope HPI: Ms. Wilson is a 77 year old female seen for the above She is an individual who had recently been hospitalized to [facility]. At that time she had problems with significant ventricular arrhythmias. Apparently there were significant couplets triplets and short runsof ventricular tachycardia. Therapy consisted of beta-blockers but she presents, again, with similar problems She apparently had been to dialysis on Friday. Upon returning home she became dizzy and lightheaded. On arrival to the emergency room in [place] she was having a sinus beat followed [...] angiogram 1 or 2 years ago [facility] no intervention and because of this we [...] and no additional complaints, except as documented [facility] Medical History (Updated 12/09/22 @ 09:40 by [...] # (Auto) 0.5 L 1.0 (1.00-4.8) x10E3/uL Gilchrist # (Auto) 0.4 0.6 (0.0-0.8) x10E3/uL Eos [...] Code(s): I25.10 - Atherosclerotic heart disease of algaaciq coronary artery without angina pectoris (4) Syncope: [...] signed by MD Armando German> 12/14/22 1011 [facility] Work Phone: 1(907) 304-787311-03-2023 History and physical note Author Jamal Schaefer [facility] December 13, 2022 8:55pm Note Date/Time December 13, 2022 8 :31pm [facility] [address] [place] [address] Hospitalist H&P Signed Patient: Cinthya Wilson MR#: [id number] : 1945 Acct:[id number] Age/Sex: 77 / F Adm Date: 3 Loc: Room: 8O9433-9 Type: ADM IN Attending Dr: Eric Thomas DO Copies to: MD Lily Garrett II, MD Kyle T Cleveland, DO~ HPI DATE OF EXAMINATION: 12/13/22 HISTORY OF PRESENT ILLNESS: Patient is a 77-year-old female, with a number of chronic medical comorbidities noted below, who was sent to the emergency department of [facility] from hemodialysis after failing short of breath. She apparently completed the hemodialysis session. 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 She feels mildlyshort of breath at times, but no chest pain. No respiratory tract symptoms, fever or chills reported. Evaluation in [place] ED showed a temperature of 99.9, bradycardia [...] systolic murmur 2/6 left and a border. [id number] ultrasound shows mild LV dysfunction. Lungs are [...] cannula oxygen GERD Diabetes mellitus type 2 [facility] Medical History (Updated 12/09/22 @ 09:40 by [...] <Electronically signed by Jamal Schaefer MD> 12/13/222054 [facility] Work Phone: 1([phone]) 391-294810-30-2023 Progress note Author Edie Michel [facility] December 09, 2022 3:34pm Note Date/Time December 09, 2022 3 :32pm [facility] [address] [place] [address] Cardiology Progress Note Signed Patient: Cinthya Wilson MR#: [id number] : 1945 Acct:[id number] Age/Sex: 77 / F Adm Date: 3 Loc: Room: [address] [place] [address] Type: ADM IN Attending Dr: Teresa Pagan MD Copies to: ~ Date of Service: 12/09/2022 Subjective Interval history: Ms. Wilson is a 77 year old female with PMH significant for CAD status post PCI x1 about 10 years ago in [place], ESRD on HD, hypertension, hyperlipidemia, CHF, COPD [...] % (Auto) 77.6 Lymph % (Auto) 13.7 Gilchrist % (Auto) 6.8 Eos % (Auto) 1.4 Baso % (Auto) 0.5 Nucleat RBC Rel Count 0.0 Neut # (Auto) 8.1 H Lymph # (Auto) 1.4 Gilchrist # (Auto) 0.7 Eos # (Auto) 0.1 Baso # (Auto) 0.0 PHA Creatinine Clear Sodium Potassium Chloride Carbon Dioxide Anion Gap BUN Creatinine Est GFR (CKD-EPI) Glucose POC Glucose 334 294 Calcium Magnesium 12/09/22 12/09/22 12/09/22 05:11 07:48 13:39 Corrected WBC Uncorrected WBC Count RBC Hgb Hct MCV MCH MCHC RDW Plt Count MPV Neut % (Auto) Lymph % (Auto) Gilchrist % (Auto) Eos % (Auto) Baso % (Auto) Nucleat RBC Rel Count Neut # (Auto) Lymph # (Auto) Gilchrist # (Auto) Eos # (Auto) Baso # [...] Code(s): I25.10 - Atherosclerotic heart disease of algaaciq coronary artery without angina pectoris Status: Acute [...] PCI x1 about 10 years ago in [place], ESRD on HD, hypertension, hyperlipidemia, CHF, COPD [...] with dialysis -Patient has 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 Lutz in [place] on 01/01/2023 Documented By: Edie Michel MD 12/09/22 1529 Signed By: <Electronically signed by Edie Michel MD> 12/09/22 1531 [facility] Work Phone: [phone]) 378-815810-30-2023 Progress note Author Narinder Toussaint [facility] December 09, 2022 2:57pm Note Date/Time December 09, 2022 2 :57pm [facility] [address] [place] [address] Nephrology Progress Note Signed Patient: Cinthya Wilson MR#: [id number] : 1945 Acct:[id number] Age/Sex: 77 / F Adm Date: 3 Loc: Room: 5L8148-6 Type: ADM IN Attending Dr: Teresa Pagan [...] V. tach ontelemetry. Patient was admitted at [facility] in October 2022 for fall and was also found to have a nonsustained V. tach. She was seen by the cardiology at the time. 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 She currently goes to the [place] dialysis unit 3 times a week on [...] 14:09 12/09/22 14:09 12/09/22 14:09 12/09/22 14:12/09/22 14:09 12/09/22 14:09 Narrative: Constitutional: Up [...] TID.WITH.MEALS YESSENIA Stop: 12/07/23 07:59 Last Admin: 12/09/22 14:27 Dose: 667 mg Darbepoetin Theodore (Darbepoetin Theodore In Polysorbat 40 Mcg/Ml Vial) 80 mcg [id number] YESSENIA Stop: 12/11/23 10:59 Diclofenac Sodium (Diclofenac Sodium 1% Gel 50 Gm Tube) 4 gm TOPICAL QID YESSENIA Stop: 12/07/23 08:59 Last Admin: 12/09/22 14:17 Dose: Not Given Docusate Sodium (Docusate 100 Mg Capsule) 100 mg PO BID [facility] Stop: 12/07/23 08:59 Last Admin: 12/09/22 14:13 Dose: Not Given Glucose (Dextrose 40% Gel 15 Gm Tube) 0.6 gm PO PRN PRN PRN Reason: Hypoglycemia Stop: 12/07/23 05:09 Heparin Sodium (Porcine) (Heparin 5,000 Unit/Ml Vial) 5,000 unit SUBCUT Q8HR [facility] Stop: 12/08/23 21:59 Last Admin: 12/09/22 08:40 [...] Units/3 Ml Insuln.Pen) 0 units SUBCUT TID.WM.HS [facility]; Protocol Stop: 12/07/23 07:59 Last Admin: 12/09/22 14:16 Dose: Not Given Ipratropium Macarthur (Ipratropium Macarthur 0.5 Mg/2.5 Ml Vial.Neb) 0.5 mg INHALATION QID [facility] Stop: 12/07/23 08:59 Last Admin: 12/09/22 08:37 Dose: 0.5 mg Metoprolol Succinate (Metoprolol Succinate 25 Mg Tab.Er.24h) 12.5 mg PO BID [facility] Stop: 12/08/23 12:59 Last Admin: 12/09/22 14:27 [...] HS YESSENIA Stop: 12/07/23 21:59 Last Admin: 12/08/22 21:02 [...] She was seen by the cardiology at [facility] in October 2022.Her echocardiogram in February 2022 [...] <Electronically signed by MD Narinder Toussaint> 12/09/221456 [facility] Work Phone: 1(762) 188-740710-30-2023 Discharge summary Author Teresa Pagan [facility] December 09, 2022 1:41pm Note Date/Time December 09, 2022 1 :41pm [facility] [address] [place] [address] Discharge Summary Signed Patient: Cinthya Wilson MR#: [id number] : 1945 Acct:[id number] Age/Sex: 77 / F Adm Date: 3 Loc: Room: [address] [place] [address]: Teresa Pagan MD Copies to: [...] Clear 7.96, Sodium 128 L, Potassium 4.4, Acnsjble19 L, Carbon Dioxide 26.7, Anion Gap 17.7 [...] % (Auto) 77.6, Lymph % (Auto) 13.7, Gilchrist % (Auto) 6.8, Eos % (Auto) 1.4, Baso % (Auto) 0.5, Nucleat RBC Rel Count 0.0, Neut # (Auto) 8.1 H, Lymph # (Auto) 1.4, Gilchrist # (Auto) 0.7, Eos # (Auto) 0.1, [...] cardiac event monitor (Routine) Timeframe: 20221209 Facility: [facility] - Location: [address] [place] [address] - O/P Ordered By: Edie Michel Follow Up: Edie Michel MD [Active Staff] - Documented By: Teresa Pagan MD 12/09/22 0936 Signed By: <Electronically signed by Teresa Pagan MD> 12/09/22 1341 [facility] Work Phone: [phone]) [phone] Progress note Author Edie Michel [facility] December 08, 2022 6:26pm Note Date/Time December 08, 2022 6 :26pm [facility] [address] [place] [address] Cardiology Progress Note Signed Patient: Cinthya Wilson MR#: [id number] : 1945 Acct:[id number] Age/Sex: 77 / F Adm Date: 3 Loc: 4N Room: [address] [place] [address] Type: ADM INOo Attending Dr: Teresa Pagan MD Copies to: ~ Date of Service: 12/08/2022 Subjective Interval history: Ms. Wilson is a 77 year old female with PMH significant for CAD status post PCI x1 about 10 years ago in [place], ESRD on HD, hypertension, hyperlipidemia, CHF, COPD [...] % (Auto) 73.1 Lymph % (Auto) 16.3 Gilchrist % (Auto) 9.7 Eos % (Auto) 0.7 Baso % (Auto) 0.2 Nucleat RBC Rel Count 0.0 Neut # (Auto) 7.2 Lymph # (Auto) 1.6 Gilchrist # (Auto) 1.0 H Eos # (Auto) [...] MPV Neut % (Auto) Lymph % (Auto) Gilchrist % (Auto) Eos % (Auto) Baso % (Auto) Nucleat RBC Rel Count Neut # (Auto) Lymph # (Auto) Gilchrist # (Auto) Eos # (Auto) Baso # (Auto) PHA Creatinine Clear Sodium Potassium Chloride Carbon Dioxide Anion Gap BUN Creatinine Est GFR (CKD-EPI) Glucose POC Glucose 179 236 Calcium Magnesium Troponin I High Sens 23.4 H 12/08/22 16:36 Corrected WBC Uncorrected WBC Count RBC Hgb Hct MCV MCH MCHC RDW Plt Count MPV Neut % (Auto) Lymph % (Auto) Gilchrist % (Auto) Eos % (Auto) Baso % (Auto) Nucleat RBC Rel Count Neut # (Auto) Lymph # (Auto) Gilchrist # (Auto) Eos # (Auto) Baso # [...] Code(s): I25.10 - Atherosclerotic heart disease of algaaciq coronary artery without angina pectoris Status: Acute [...] PCI x1 about 10 years ago in [place], ESRD on HD, hypertension, hyperlipidemia, CHF, COPD [...] follow Documented By: Edie Michel MD 12/08/22 132 Signed By: <Electronically signed by Edie Michel MD> 12/08/22 1732 [facility] [facility] Work Phone: 1(332) [phone] Progress note Author Teresa Pagan [facility] December 08, 2022 2:00pm Note Date/Time December 08, 2022 1 :49pm [facility] [address] [place] [address] Hospitalist Progress Note Signed Patient: Cinthya Wilson MR#: [id number] : 1945 Acct:[id number] Age/Sex: 77 / F Adm Date: 3 Loc: Room: 8P3726-4 Type: ADM INOo Attending Dr: Teresa Pagan [...] 2 units TID.WM.HS YESSENIA Administration Protocol Ipratropium Macarthur 0.5 mg 12/07/22 09:00 12/08/22 12:33 Ipratropium Macarthur 0.5 Mg/2.5 Ml Vial.Neb INHALATION 12/07/23 08:59 [...] Administration Documented By: Teresa Pagan MD 12/08/22 1546 Signed By: <Electronically signed by Teresa Pagan MD> 12/08/22 1400 [facility] Work Phone: [phone]) [phone] Progress note Author Wood Zavala [facility] December 08, 2022 10:36am Note Date/Time December 08, 2022 1 0:36am [facility] [address] [place] [address] Nephrology Progress Note Signed Patient: Cinthya Wilson MR#: [id number] : 1945 Acct:[id number] Age/Sex: 77 / F Adm Date: 3 Loc: 4N Room: [address] [place] [address] Type: ADM INOo Attending Dr: Teresa Pagan [...] V. tach ontelemetry. Patient was admitted at [facility] in October 2022 for fall and was also found to have a nonsustained V. tach. She was seen by the cardiology at the time. 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, following simple command Musculoskeletal: No joint [...] QPM YESSENIA Stop: 12/07/23 20:59 Last Admin: 12/07/22 20:24 Dose: 40 mg Budesonide/Formoterol Fumarate (Budesonide/Formoterol 80-4.5 Mcg 60 Puff/6.9 Gm Hfa.Aer.Ad) 2 puff INHALATION BID YESSENIA Stop: 12/07/23 08:59 Last Admin: 12/08/22 09:10 Dose: 2 puff Calcium Acetate (Calcium Acetate 667 Mg Capsule) 667 mg PO TID.WITH.MEALS YESSENIA Stop: 12/07/23 07:59 Last Admin: 12/08/22 08:01 Dose: 667 mg Diclofenac Sodium (Diclofenac Sodium 1% Gel 50 Gm Tube) 4 gm TOPICAL QID YESSENIA Stop: 12/07/23 08:59 Last Admin: 12/08/22 08:03 Dose: 4 gm Docusate Sodium (Docusate 100 Mg Capsule) 100 mg PO BID YESSENIA Stop: 12/07/23 08:59 Last Admin: 12/08/22 08:01 Dose: 100 mg Glucose (Dextrose 40% Gel 15 Gm Tube) 0.6 gm PO PRN PRN PRN Reason: Hypoglycemia Stop: 12/07/23 05:09 Insulin Aspart (Insulin Aspart 300 Units/3 Ml Insuln.Pen) 0 units SUBCUT TID.WM.[facility]; Protocol Stop: 12/07/23 07:59 Last Admin: 12/08/22 08:07 Dose: 1 units Ipratropium Macarthur (Ipratropium Macarthur 0.5 Mg/2.5 Ml Vial.Neb) 0.5 mg INHALATION QID [facility] Stop: 12/07/23 08:59 Last Admin: 12/08/22 09:10 Dose: 0.5 mg Metoprolol Succinate (Metoprolol Succinate 25 Mg Tab.Er.24h) 25 mg PO BID [facility] Stop: 12/07/23 20:59 Last Admin: 12/08/22 08:03 Dose: Not Given Midodrine (Midodrine 5 Mg Tablet) 5 mg PO TID PRN PRN Reason: Hypotension Stop: 12/07/23 08:59 Multivitamins (Multivitamin 1 Tab Tablet) 1 tab PO DAILY [facility] Stop: 12/07/23 08:59 Last Admin: 12/08/22 08:01 Dose: 1 tab Oxycodone/Acetaminophen (Oxycodone/Acetaminophen 5-325 Mg Tablet) 1 tab PO Q6H PRN PRN Reason: Pain Last Admin: 12/08/22 07:25 Dose: 1 tab Pantoprazole Sodium (Pantoprazole 40 Mg Tablet.Dr) 40 mg PO DAILY [facility] Stop: 12/07/23 08:59 Last Admin: 12/08/22 09:12 Dose: 40 mg Pramipexole Dihydrochloride (Pramipexole 0.5 Mg Tablet) 0.5 mg PO [facility] Stop: 12/07/23 21:59 Last Admin: 12/07/22 22:57 Dose: 0.5 mg Prednisone (Prednisone 10 Mg Tablet) 10 mg PO DAILY [facility] Stop: 12/10/22 08:59 Last Admin: 12/08/22 08:01 Dose: 10 mg Sennosides (Sennosides 8.6 Mg Tablet) 1 tab PO BID [facility] Stop: 12/07/23 08:59 Last Admin: 12/08/22 08:01 [...] She was seen by the cardiology at [facility] in October 2022.Her echocardiogram in February 2022 [...] signed by Wood Zavala MD> 12/08/22 1036 [facility] Work Phone: [phone] Consult note Author Edie Michel [facility] December 07, 2022 8:59pm Note Date/Time December 07, 2022 8 :43pm [facility] [address] [place] [address] Cardiology Consult Note Signed Patient: Cinthya Wilson MR#: [id number] : 1945 Acct:[id number] Age/Sex: 77 / F Adm Date: 3 Loc: Room: [address] [place] [address] Type: ADM INOo Attending Dr: Teresa Pagan MD Copies to: MD Edie Bourgeois II, MD Mazhar Rahman, MD~ Cardiology HPI History of Present Illness Consult Date: 12/07/22 Reason for Consult: Syncope HPI: Ms. Wilson is a 77 year old female with PMH significant for CAD status post PCI x1 about 10 years ago in [place], ESRD on HD, hypertension, hyperlipidemia, CHF, COPD [...] negative unless noted below or in HPI [facility] Medical History (Updated 12/07/22 @ 20:58 by [...] Lymph # (Auto) 0.9 L (1.00-4.8) x10E3/uL Gilchrist # (Auto) 0.8 (0.0-0.8) x10E3/uL Eos # [...] Code(s): I25.10 - Atherosclerotic heart disease of algaaciq coronary artery without angina pectoris (4) Acute electrocardiogram changes: Code(s): R94.31 - Abnormal electrocardiogram [ECG] [EKG] (5) ESRD (end stage renal disease): Code(s): N18.6 - End stage renal disease (6) Syncope: Code(s): R55 - Syncope and collapse Plan Ms. Wilson is a 77 year old female with PMH significant for CAD status post PCI x1 about 10 years ago in [place], ESRD on HD, hypertension, hyperlipidemia, CHF, COPD [...] <Electronically signed by Edie Michel MD> 12/07/222058 [facility] Work Phone: [phone] 129-647910-28-2023 Consult note Author Wood Zavala [facility] December 07, 2022 11:43am Note Date/Time December 07, 2022 1 1:24am [facility] [address] [place] [address] Nephrology Consult Note Signed Patient: Cinthya Wilson MR#: [id number] : 1945 Acct:[id number] Age/Sex: 77 / F Adm Date: 3 Loc: Room: [address] [place] [address] Type: ADM INOo Attending Dr: Teresa Pagan [...] V. tach ontelemetry. Patient was admitted at [facility] in October 2022 for fall and was also found to have a nonsustained V. tach. She was seen by the cardiology at the time. 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 She currently goes to the [facility] dialysis unit 3 times a week on [...] polydipsia Dermatological: denies any itching or rash [facility] Medical History (Updated 12/07/22 @ 11:34 by [...] 81 Mg Tablet.) 81 mg PO DAILY [facility] Stop: 12/07/23 08:59 Last Admin: 12/07/22 09:46 Dose: 81 mg Atorvastatin Calcium (Atorvastatin 40 Mg Tablet) 40 mg PO QPM YESSENIA Stop: 12/07/23 20:59 Budesonide/Formoterol Fumarate (Budesonide/Formoterol 80-4.5 Mcg 60 Puff/6.9 Gm Hfa.Aer.Ad) 2 puff INHALATION BID [facility] Stop: 12/07/23 08:59 Last Admin: 12/07/22 08:07 Dose: 2 puff Calcium Acetate (Calcium Acetate 667 Mg Capsule) 667 mg PO TID.WITH.MEALS [facility] Stop: 12/07/23 07:59 Last Admin: 12/07/22 09:45 Dose: 667 mg Carvedilol (Carvedilol 3.125 Mg Tablet) 3.125 mg PO BID.WITH.MEALS [facility] Stop: 12/07/23 07:59 Last Admin: 12/07/22 09:46 Dose: 3.125 mg Diclofenac Sodium (Diclofenac Sodium 1% Gel 50 Gm Tube) 4 gm TOPICAL QID [facility] Stop: 12/07/23 08:59 Last Admin: 12/07/22 09:46 Dose: 4 gm Docusate Sodium (Docusate 100 Mg Capsule) 100 mg PO BID [facility] Stop: 12/07/23 08:59 Last Admin: 12/07/22 09:45 Dose: 100 mg Glucose (Dextrose 40% Gel 15 Gm Tube) 0.6 gm PO PRN PRN PRN Reason: Hypoglycemia Stop: 12/07/23 05:09 Insulin Aspart (Insulin Aspart 300 Units/3 Ml Insuln.Pen) 0 units SUBCUT TID.WM.HS [facility]; Protocol Stop: 12/07/23 07:59 Last Admin: 12/07/22 09:56 Dose: 2 units Ipratropium Macarthur (Ipratropium Macarthur 0.5 Mg/2.5 Ml Vial.Neb) 0.5 mg INHALATION QID [facility] Stop: 12/07/23 08:59 Last Admin: 12/07/22 08:06 Dose: 0.5 mg Midodrine (Midodrine 5 Mg Tablet) 5 mg PO TID PRN PRN Reason: Hypotension Stop: 12/07/23 08:59 Multivitamins (Multivitamin 1 Tab Tablet) 1 tab PO DAILY [facility] Stop: 12/07/23 08:59 Last Admin: 12/07/22 09:45 Dose: 1 tab Oxycodone/Acetaminophen (Oxycodone/Acetaminophen 5-325 Mg Tablet) 1 tab PO Q6H PRN PRN Reason: Pain Pantoprazole Sodium (Pantoprazole 40 Mg Tablet.Dr) 40 mg PO DAILY [facility] Stop: 12/07/23 08:59 Last Admin: 12/07/22 09:45 Dose: 40 mg Pramipexole Dihydrochloride (Pramipexole 0.5 Mg Tablet) 0.5 mg PO HS YESSENIA Stop: 12/07/23 21:59 Prednisone (Prednisone 10 Mg Tablet) 10 mg PO DAILY YESSENIA Stop: 12/10/22 08:59 Last Admin: 12/07/22 09:45 [...] Skin: No rashes , warm to touch 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 Stable degenerative and postoperative changes. Impression dictated by: David Archer M.D.12/06/2022 8:16 PM Dictation Location: [place] [address] 12/06/22 18:47 IMPRESSION: No acute intracranial findings. Impression dictated by: David Archer M.D.12/06/2022 8:12 PM Dictation Location: [place] [address] Chest X-Ray 12/06/22 18:48 IMPRESSION: Redemonstration of moderate right basilar pleural-parenchymal changes. Impression dictated by: David Archer M.D.12/06/2022 8:04 PM Dictation Location: [place] [address] Any impression(s) listed above is documentation that [...] She was seen by the cardiology at [facility] in October 2022.Her echocardiogram in February 2022 [...] <Electronically signed by Wood Zavala MD> 12/07/22 1143 [facility] Work Phone: [phone]) 362-353710-28-2023 Progress note Author Teresa Pagan [facility] December 07, 2022 9:47am Note Date/Time December 07, 2022 9 :47am [facility] [address] [place] [address] Event Note Signed Patient: Cinthya Wilson MR#: [id number] : 1945 Acct:[id number] Age/Sex: 77 / F Adm Date: 3 Loc: 4N Room: [address] [place] [address] Type: ADM INOo Attending Dr: Teresa Pagan [...] cardiology service with recommendation to follow-upwith her incinerator 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 She does have history of coronary disease with remote PCI. Scheduled to see her incinerator plant supervisor next week. She was again brought to [...] By: <Electronically signed by Teresa Pagan MD> 12/07/22 0947 [facility] Work Phone: [phone] History and physical note Author Pennie Love [facility] December 07, 2022 2:16am Note Date/Time December 07, 2022 2 :16am [facility] [address] [place] [address] Hospitalist H&P Signed Patient: Cinthya Wilson MR#: [id number] : 1945 Acct:[id number] Age/Sex: 77 / F Adm Date: 3 Loc: 4N Room: [address] [place] [address] Type: ADM INOo Attending Dr: Pennie Love [...] negative unless noted below or in HPI [facility] Medical History Anemia Anxiety Anxiety and depression [...] % (Auto) 5.4 % (.) 12/06/22 18:48 Gilchrist % (Auto) 4.3 % (.) 12/06/22 18:48 Eos % (Auto) 0.1 % (.) 12/06/22 18:48 Baso % (Auto) 0.3 % (.) 12/06/22 18:48 Nucleat RBC Rel Count 0.1 /100 WBC (0-0.5) 12/06/22 18:48 Neut # (Auto) 11.9 x10E3/uL (1.8-7.7) H 12/06/22 18:48 Lymph # (Auto) 0.7 x10E3/uL (1.00-4.8) L 12/06/22 18:48 Gilchrist # (Auto) 0.6 x10E3/uL (0.0-0.8) 12/06/22 18:48 [...] 3 Documented By: Pennie Love DO 12/07/22 50 Signed By: <Electronically signed by Pennie Love DO> 12/07/22 0216 [facility] Work Phone: [phone]) [phone] NoteCoronary artery disease is stable Continue GDMT continue risk factor modifications- heart healthy diet, regular exercise as tolerated and continue all medications.[facility] 10-07-2022 NoteHypertension is currently labile and symptomatic hypotension [facility]08-28-2023 NotestableUnRegency Hospital [facility]08-28-2023 NoteRemains hypotensive especially on dialysis days, currently she is lightheaded and dizzy sitting in office for exam. Given water and recommended her to take another midodrine. Recommend her to take midodrine about 1 hour before every dialysis session on to prevent symptomsatic hypotension and may need to increase dose to 10 mg tid prn if needed. She voiced understandingUnRegency Hospital [facility] 10-04-2022 NotePatient here c/o dizziness. She was [...] light-headedness. All other systems reviewed and are negative.[facility] 10-04-2022 NoteUTP CARDIOLOGY PROGRESS NOTE HPI: Cinthya [...] 40 mg by mouth in the morning. terepwdqaop-clsoyvxdv-sujiuaiz (Trelegy Ellipta) 200-62.5-25 mcg blister with device Inhale. furosemide (Lasix) 40 mg tablet Take 1.5 tablets by mouth in the morning and at bedtime. HumaLOG KwikPen Insulin 100 unit/mL injection HYDROcodone-acetaminophen (Fenton) 7.5-325 mg tablet Take 1 tablet by [...] been reviewed CV Testing: (more content not included)...[facility] 09-09-2022 NoteNoted hypotension r/t hemodialysis therefore prescribed midodrine 5 mg tid- d/w pt to take tid on dialysis days and if needed for low b/p or symptoms on her non dialysis days- she voiced understanding Pt to call office for any concernsUnRegency Hospital [facility]07-31-2023 NotestableUnRegency Hospital [facility]07-31-2023 NoteCurrently stable without exacerbation, remains euvolemic with hemodialysis and lasix Continue GDMT- ASA, lipitor, coreg, valsartan and lasixUnRegency Hospital [place]07-31-2023 NoteStable no concerns todayUnRegency Hospital [place]07-31-2023 NotePatient here c/o lightheadedness. She was seen in [facility] ED a few weeks ago for a [...] light-headedness. All other systems reviewed and are negative.[facility] 09-09-2022 NoteUTP CARDIOLOGY PROGRESS NOTE HPI: Cinthya Wilson is a 77 y.o. female here for No chief complaint on file. Patient here c/o lightheadedness. She was seen in [facility] ED a few weeks ago for a [...] 40 mg by mouth in the morning. xbyqusfznbz-scefcmckn-mktpfdkb (Trelegy Ellipta) 200-62.5-25 mcg blister with device Inhale. furosemide (Lasix) 40 mg tablet Take 1.5 tablets by mouth in the morning and at bedtime. HumaLOG KwikPen Insulin 100 unit/mL injection HYDROcodone-acetaminophen (Fenton) 7.5-325 mg tablet Take 1 tablet by [...] Mood normal. Behavior: Behav (more content not included)...[facility]07-31-2023 NoteReviewed pt's B/P log and she has notable hypotension on her days of hemodialysis with noted b/p 68/40 to 98/50- therefore PCP prescribed midodrine 5 mg prn and with 1 dose she noticed improvement. Continue all meds in light her b/p returns to 140-150 systolic on her off days from dialysis.[facility]06-27-2023 NoteRemains mild AI and A stenosis per Echo 03/04UnReg[facility]06-27-2023 Note Continue statinUnRegency Hospital [place]06-27-2023 NoteCoronary artery disease is stable without any concerning symptoms Continue GDMT continue risk factor modifications- heart healthy diet, regular exercise as tolerated and continue all medications.[facility] 08-06-2022 NoteUTP CARDIOLOGY PROGRESS NOTE HPI: Cinthya [...] breath, denied orthopnea and is wearing O2 24/- she f/U with Dr Cheek - pulmonology. [...] in the morning and at bedtime. HYDROcodone-acetaminophen (Fenton) 7.5-325 mg tablet Take 1 tablet by [...] study was perf (more content not included)... [facility]06-27-2023 NoteCOPD is stable F/U with Dr SerranoRegency Hospital [facility]06-27-2023 NoteHTN is well controlled 99/48- without hypotensive s/s Continue meds She may need midodrine at some point with HD F/U with maryologyUnRegency Hospital [place]06-27-2023 NoteNYHC III- IV, currently euvolemic with hemodialysis and lasix daily as per nephrology Continue GDMT- ASA, lipitor, coreg, valsartan Diuretic therapy- lasix 60 mg bid Monitor daily weights, I&O, fluid restriction 1.5-2L/day, renal function and electrolytes-[facility]04-10-2023 Discharge summary Author Teresa Pagan [facility] May 20, 2022 1:07pm Note Date/Time May 20, 2022 1:0 5pm [facility] [address] [place] [address] Discharge Summary Signed Patient: Cinthya Wilson MR#: [id number] : 1945 Acct:[id number] Age/Sex: 77 / F Adm Date: 3 Loc: Room: [address] [place] [address]: Teresa Pagan MD Copies to: [...] % (Auto) 67.3, Lymph % (Auto) 12.8, Gilchrist % (Auto) 13.0, Eos % (Auto) 6.3, Baso % (Auto) 0.6, Nucleat RBC Rel Count 0.0, Neut # (Auto) 5.2, Lymph # (Auto) 1.0, Gilchrist # (Auto) 1.0 H, Eos # (Auto) [...] 05/20/22 11:25 05/20/22 12:31 05/20/22 11:25 05/20/22 11:05/20/22 10:57 Const Orientation: alert, awake and oriented [...] Plan Discharge Plan Patient Disposition: Home Health [facility] Diet: Diabetic and Renal Prescriptions: Continued multivitamin [...] signed by Teresa Pagan MD> 05/20/22 1307 [facility] Work Phone: [phone]) 348-655004-10-2023 Progress note Author Geronimo Fofana [facility] May 20, 2022 12:55pm Note Date/Time May 20, 2022 12: 22pm [facility] [address] [place], [place] [address] Nephrology Progress Note Signed Patient: Cinthya Wilson MR#: [id number] : 1945 Acct:[id number] Age/Sex: 77 / F Adm Date: 3 Loc: 4P Room: 3V0152-0 Type: ADM IN Attending Dr: Teresa Pagan MD Copies to: ~ Date of Service: 05/20/2022 Subjective Subjective Narrative: Mrs. 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 She gets dialysis at [facility] dialysis unit and she has a functioning [...] 132/52 L 96 Nasal Cannula 6 05/20/22 11:25 05/20/22 12:02 05/20/22 11:25 05/20/22 12:02 05/20/22 11:25 05/20/22 11:25 05/20/22 10:57 Narrative: General: No acute distress Head [...] Polysorbat 60 Mcg/Ml Vial) 60 mcg IV-PUSHWe@0830 [facility] Stop: 05/22/23 08:29 Heparin Sodium (Porcine) (Heparin [...] 300 Units/3 Ml Insuln.Pen) 0 units SUBCUT TID.WM.[facility]; Protocol Stop: 05/17/23 21:59 Last Admin: 05/20/22 11:10 Dose: Not Given Pantoprazole Sodium (Pantoprazole 40 Mg Tablet.Dr) 40 mg PO DAILY [facility] Stop: 05/18/23 08:59 Last Admin: 05/20/22 08:16 [...] overload. [facility] (2) Bright red [...] the schedule Documented By: Geronimo Fofana MD 05/20/221216 Signed By: <Electronically signed by Geronimo Fofana MD> 05/20/22 2391 [facility] Work Phone: 1(721) 811-247504-10-2023 [facility] Procedure [facility]04-09-2023 Progress note Author Narinder Toussaint [facility] May 19, 2022 2:32pm Note Date/Time May 19, 2022 2:32 pm [facility] [address] [place] [address] Nephrology Progress Note Signed Patient: Cinthya Wilson MR#: [id number] : 1945 Acct:[id number] Age/Sex: 77 / F Adm Date: 3 Loc: Room: [address] [place] [address] Type: ADM IN Attending Dr: Jamal Schaefer MD Copies to: ~ Date of Service: 05/19/2022 Subjective Subjective Narrative: Mrs. 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 She gets dialysis at [facility] dialysis unit and she has a functioning [...] 300 Units/3 Ml Insuln.Pen) 0 units SUBCUT TID.WM.[facility]; Protocol Stop: 05/17/23 21:59 Last Admin: 05/19/22 12:17 Dose: 1 units PEG/Electrolytes/Ascorbic Acid (Gmd9901/Electrolytes 2000 Ml Kit) 1,000 ml PO ONCE@0600 ONE Stop: 05/20/22 04:01 PEG/Electrolytes/Ascorbic Acid (Dgs1395/Electrolytes 2000 Ml Kit) 1,000 ml PO ONCE@1800 ONE Stop: 05/19/22 15:01 Pantoprazole Sodium (Pantoprazole 40 Mg Tablet.) 40 mg PO DAILY [facility] Stop: 05/18/23 [...] volume overload. She is currently gets dialysis [facility] dialysis unit on MWF schedule (2) Bright [...] schedule Documented By: Narinder Toussaint MD 05/19/22 4515 Signed By: <Electronically signed by MD Narinder Toussaint> 05/19/22 1432 [facility] Work Phone: [phone]) 374-508104-09-2023 Progress note Author Jamal Schaefer [facility] May 19, 2022 1:38pm Note Date/Time May 19, 2022 1:38 pm [facility] [address] [place] [address] Hospitalist Progress Note Signed Patient: Cinthya Wilson MR#: [id number] : 1945 Acct:[id number] Age/Sex: 77 / F Adm Date: 3 Loc: Room: [address] [place] [address] Type: ADM IN Attending Dr: Jamal Schaefer [...] 20 mg 05/19/22 14:00 Bisacodyl 5 Mg Tablet. PO 05/19/22 14:01 ONCE ONE Calcium Acetate [...] Protocol PEG/Electrolytes/Ascorbic Acid 1,000 ml 05/20/22 04:00 [id number]/Electrolytes 2000 Ml Kit PO 05/20/22 04:01 ONCE@0600 ONE PEG/Electrolytes/Ascorbic Acid 1,000 ml 05/19/22 15:00 Qyi3290/Electrolytes 2000 Ml Kit PO 05/19/22 15:01 ONCE@1800 [...] <Electronically signed by Jamal Schaefer MD> 05/19/221337 [facility] Work Phone: [phone]) 323-966604-08-2023 Progress note Author Jamal Schaefer [facility] May 18, 2022 2:18pm Note Date/Time May 18, 2022 11:2 2am [facility] [address] [place] [address] Hospitalist Progress Note Signed Patient: Cinthya Wilson MR#: [id number] : 1945 Acct:[id number] Age/Sex: 77 / F Adm Date: 3 Loc: 4N Room: 7P8646-1 Type: ADM IN Attending Dr: Jamal Schaefer [...] of care and confirmed it with the resident/student/A R COLLECTIONS REP. The patient is a 77 year old [...] <Electronically signed by Jamal Schaefer MD> 05/18/22 1412 [facility] Work Phone: [phone]) 171-250904-08-2023 Consult note Author Narinder Toussaint [facility] May 18, 2022 12:58pm Note Date/Time May 18, 2022 12:5 8pm [facility] [address] [place] [address] Nephrology Consult Note Signed Patient: Cinthya Wilson MR#: [id number] : 1945 Acct:[id number] Age/Sex: 77 / F Adm Date: 3 Loc: N Room: [address] [place] [address] Type: ADM IN Attending Dr: Jamal Schaefer MD Copies to: MD Lily Garrett II, MD Essam B Elashi, MD~ Providers Consult Date: 05/18/22 Requesting Provider: Jamal Schaefer MD Primary Care Provider: Lily Aldrich II, MD [facility] Reason for Consult: Management of ESRD and dialysis during hospital stay History of Present Illness: Mrs. 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 She gets dialysis at [facility] dialysis unit and she has a functioning [...] QPM YESSENIA Stop: 05/17/23 20:59 Last Admin: 05/17/22 21:50 Dose: 40 mg Bisacodyl (Bisacodyl 5 Mg Tablet.Dr) 20 mg PO ONCE ONE Stop: 05/19/22 14:01 Calcium Acetate (Calcium Acetate 667 Mg Capsule) 667 mg PO TID.WITH.MEALS YESSENIA Stop: 05/17/23 16:59 Last Admin: 05/18/22 09:29 Dose: 667 mg Carvedilol (Carvedilol 12.5 Mg Tablet) 12.5 mg PO BID YESSENIA Stop: 05/17/23 20:59 Last Admin: 05/17/22 21:50 Dose: 12.5 mg Citalopram Hydrobromide (Citalopram 40 Mg Tablet) 40 mg PO DAILY YESSENIA Stop: 05/18/23 08:59 Heparin Sodium (Porcine) (Heparin [...] 1,000 mls @ 20 mls/hr IV .Q24H [facility] Stop: 05/19/23 05:59 Insulin Aspart (Insulin Aspart 300 Units/3 Ml Insuln.Pen) 0 units SUBCUT TID..[facility]; Protocol Stop: 05/17/23 21:59 Last Admin: 05/18/22 09:33 Dose: 1 units Isosorbide Mononitrate (Isosorbide Mononitrate 24hr Er 60 Mg Tab.Er.24h) 60 mg PO DAILY [facility] Stop: 05/18/23 08:59 PEG/Electrolytes/Ascorbic Acid ([id number]/Electrolytes 2000 Ml Kit) 1,000 ml PO ONCE@0600 ONE Stop: 05/20/22 04:01 PEG/Electrolytes/Ascorbic Acid ([id number]/Electrolytes 2000 Ml Kit) 1,000 ml PO ONCE@1800 ONE Stop: 05/19/22 15:01 Pantoprazole Sodium (Pantoprazole 40 Mg Tablet.) 40 mg PO DAILY [facility] Stop: 05/18/23 08:59 Simethicone (Simethicone 80 Mg [...] Dianna Pedro M.D.05/17/2022 5:34 PM Dictation Location: [place] [address] Any impression(s) listed above is documentation that [...] overload. She is currently gets dialysis at [facility] dialysis unit on MWF schedule (2) [...] during her hospital stay Documented By: Narinder Toussaint MD 05/18/22 1231 Signed By: <Electronically signed by MD Narinder Toussaint> 05/18/22 4030 [facility] Work Phone: [phone] Consult note Author Wilmer Azevedo [facility] May 18, 2022 12:07pm Note Date/Time May 18, 2022 12:0 7pm [facility] [address] [place] [address] Gastroenterology Consult Note Signed Patient: Cinthya Wilson MR#: [id number] : 1945 Acct:[id number] Age/Sex: 77 / F Adm Date: 3 Loc: 4N Room: 0K5116-5 Type: ADM IN Attending Dr: Jamal Schaefer [...] was 4 to 5 years ago at [facility] and she thinks that was normal, she [...] inhalation (Anoro Ellipta) 1 inh inhalation DAILY 10/15/20 [History Confirmed 05/17/22] albuterol sulfate 0.63 mg/3 [...] % (Auto) 70.6 Lymph % (Auto) 11.9 Gilchrist % (Auto) 13.9 Eos % (Auto) 2.7 Baso % (Auto) 0.9 Nucleat RBC Rel Count 0.1 Neut # (Auto) 5.2 Lymph # (Auto) 0.9 L Gilchrist # (Auto) 1.0 H Eos # (Auto) [...] % (Auto) 61.7 Lymph % (Auto) 18.3 Gilchrist % (Auto) 16.9 Eos % (Auto) 2.4 Baso % (Auto) 0.7 Nucleat RBC Rel Count 0.0 Neut # (Auto) 3.8 Lymph # (Auto) 1.1 Gilchrist # (Auto) 1.1 H Eos # (Auto) [...] MPV Neut % (Auto) Lymph % (Auto) Gilchrist % (Auto) Eos % (Auto) Baso % (Auto) Nucleat RBC Rel Count Neut # (Auto) Lymph # (Auto) Gilchrist # (Auto) Eos # (Auto) Baso # [...] the weekend. Documented By: Wilmer Azevedo MD 05/18/22 1202 Signed By: <Electronically signed by Wilmer Azevedo MD> 05/18/22 2089 [facility] Work Phone: [phone]) [phone] History and physical note Author Jamal Schaefer [facility] May 17, 2022 4:51pm Note Date/Time May 17, 2022 4:51 pm [facility] [address] [place] [address] Hospitalist H&P Signed Patient: Cinthya Wilson MR#: [id number] : 1945 Acct:[id number] Age/Sex: 77 / F Adm Date: 3 Loc: 4N Room: [address] [place] [address] Type: ADM IN Attending Dr: Jamal Schaefer [...] Hypertension COPD GERD Diabetes mellitus [facility]?: Yes Medical History Anemia [...] diabetic 32 gauge x 5/32 (BD Ultra-Fine Lxeis Pen Needle) #100 ea 11/20/21 [Rx Confirmed [...] % (Auto) 11.9 % (.) 05/17/22 13:38 Gilchrist % (Auto) 13.9 % (.) 05/17/22 13:38 Eos % (Auto) 2.7 % (.) 05/17/22 13:38 Baso % (Auto) 0.9 % (.) 05/17/22 13:38 Nucleat RBC Rel Count 0.1 /100 WBC (0-0.5) 05/17/22 13:38 Neut # (Auto) 5.2 x10E3/uL (1.8-7.7) 05/17/22 13:38 Lymph # (Auto) 0.9 x10E3/uL (1.00-4.8) L 05/17/22 13:38 Gilchrist # (Auto) 1.0 x10E3/uL (0.0-0.8) H 05/17/22 [...] signed by Jamal Schaefer MD> 05/17/22 1651 [facility] Work Phone: 1([phone]) 440-464203-23-2023 [facility] Evaluation note* Encounter Date Diagnosis Assessment Notes [...] her questions were addressed. Consent was obtained. [employer] Other 01-18-2023 Progress note Author Simone Godoy [facility] February 27, 2022 12:31pm Note Date/Time February 27, 2022 1 2:32pm [facility] [address] [place] [address] Hospitalist Progress Note Signed Patient: Cinthya Wilson MR#: [id number] : 1945 Acct:[id number] Age/Sex: 76 / F Adm Date: 3 Loc: Room: [id number] Type: ADM IN Attending Dr: Simone Godoy [...] 02/23/22 09:00 02/26/22 08:31 Aspirin 81 Mg Tablet. PO 02/23/23 08:59 [...] signed by Simone Godoy MD> 02/27/22 1231 [facility] Work Phone: [phone]) 339-413801-17-2023 Progress note Author Geronimo Fofana [facility] February 26, 2022 1:24pm Note Date/Time February 26, 2022 1 :24pm [facility] [address] [place] [address] Nephrology Progress Note Signed Patient: Cinthya Wilson MR#: [id number] : 1945 Acct:[id number] Age/Sex: 76 / F Adm Date: 3 Loc: 4N Room: [address] [place] [address] Type: ADM IN Attending Dr: Simone Godoy [...] Cannula 3 02/26/22 12:00 02/26/22 12:00 02/26/22 12:02/26/22 12:02/26/22 12:02/26/22 12:02/26/22 12:00 Narrative: General: No acute distress Head [...] 50 Mg Tablet) 50 mg PO TID [facility] Stop: 02/22/23 21:59 Last Admin: 02/26/22 08:32 Dose: 50 mg Sodium Chloride (0.9% Sodium Chloride 1,000 Ml) 1,000 mls @ 0 mls/hr MISCELLANE.Q0M PRN PRN Reason: Dialysis Stop: 02/23/23 10:58 Last Infusion: 02/25/22 11:08 Dose: Infused Insulin Aspart (Insulin Aspart 300 Units/3 Ml Insuln.Pen) 0 units SUBCUT TID.WM.HS [facility]; Protocol Stop: 02/22/23 21:59 Last Admin: 02/26/22 12:29 Dose: 1 units Melatonin (Melatonin 5 Mg Tablet) 5 mg PO QHS PRN PRN Reason: Insomnia Stop: 02/22/23 21:16 Nystatin (Nystatin 100,000 Unit/Gram Powder 15 Gm Bottle) 1 applic TOPICAL BID PRN PRN Reason: Skin Irritation Last Admin: 02/24/22 17:03 Dose: 1 applic Omeprazole (Omeprazole 20 Mg Capsule.Dr) 40 mg PO DAILY [facility] Stop: 02/23/23 08:59 Last Admin: 02/26/22 08:31 [...] YESSENIA Stop: 02/25/23 08:59 Last Admin: 02/26/22 08:33 [...] session will be tomorrow as outpatient in [facility] unit * Continue Aranesp 40 mcg weekly for anemia in chronic kidney disease.? She has adequate iron stores, B12 and folic acid. * Continue calcium acetate 667 mg with each meal. * All medications were reviewed and will continue at the same. * Outpatient dialysis is being arranged at [facility] dialysis unit closer to her home. Documented By: Geronimo Fofana MD 02/26/22 132 Signed By: <Electronically signed by Geronimo Fofana MD> 02/26/22 1324 [facility] Work Phone: [phone]) [phone] Discharge summary Author Simone Godoy [facility] February 26, 2022 12:11pm Note Date/Time February 26, 2022 1 2:09pm [facility] [address] [place] [address] Discharge Summary Signed Patient: Cinthya Wilson MR#: [id number] : 1945 Acct:[id number] Age/Sex: 76 / F Adm Date: 3 Loc: Room: [address] [place] [address]: Simone Godoy MD Copies to: [...] states that she went and 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 on Friday for a thoracentesis, and he [...] Plan Discharge Plan Patient Disposition: Home Health [facility] Activity: Ambulate as Tolerated Diet: Diabetic and [...] Patient Ordered By: Marjorie Meehan Follow Up: [facility] Dialysis [facility] [Outside] Lily Aldrich II, MD [Primary Care Provider] - 03/07/22 10:15 am (You have been scheduled for a follow up appointment for the following date and time, please call to reschedule if needed.) Documented By: Simone Godoy MD 02/26/22 1208 Signed By: <Electronically signed by Simone Godoy MD> 02/26/22 1211 [facility] Work Phone: [phone]) 284-474201-16-2023 Progress note Author Marjorie Meehan [facility] February 25, 2022 5:23pm Note Date/Time February 25, 2022 5 :23pm [facility] [address] [place] [address] Hospitalist Progress Note Signed Patient: Cinthya Wilson MR#: [id number] : 1945 Acct:[id number] Age/Sex: 76 / F Adm Date: 3 Loc: 4N Room: [address] [place] [address] Type: ADM IN Attending Dr: Marjorie Meehan [...] Capsule PO 02/24/23 16:59 Not Given TID.WITH.MEALS YESSENIA Carvedilol 12.5 mg 02/23/22 09:00 02/25/22 08:16 Carvedilol 12.5 Mg Tablet PO 02/23/23 08:59 12.5 mg BID YESSENIA Administration Citalopram Hydrobromide 40 mg 02/23/22 09:00 02/25/22 08:14 Citalopram 40 Mg Tablet PO 02/23/23 08:59 40 mg DAILY YESSENIA Administration Heparin Sodium (Porcine) 5,000 unit 02/22/22 22:00 02/25/22 13:27 Heparin 5,000 Unit/Ml Vial SUBCUT 02/22/23 21:59 Not Given Q8HR YESSENIA Heparin Sodium (Porcine) 2,000 unit 02/23/22 10:59 02/25/22 11:06 Heparin 10,000 Unit/10 Ml Vial IV 02/23/23 10:58 2,000 unit PRN PRN Administration Dialysis Hydralazine HCl 50 mg 02/22/22 22:00 02/25/22 13:27 Hydralazine 50 Mg Tablet PO 02/22/23 21:59 Not Given TID YESSENIA Sodium Chloride 1,000 mls @ 0 mls/hr 02/23/22 10:59 02/25/22 11:08 0.9% Sodium Chloride 1,000 Ml MISCELLANE 02/23/23 10:58 Infused .Q0M PRN Infusion Dialysis As Directed Insulin Aspart 0 units 02/22/22 22:00 02/25/22 11:56 Insulin Aspart 300 Units/3 Ml Insuln.Pen SUBCUT 02/22/23 21:59 Not Given TID.WM.HS YESSENIA Protocol Melatonin 5 mg 02/22/22 21:17 Melatonin [...] (min): 30 Documented By: Marjorie Meehan DO 02/25/221718 Signed By: <Electronically signed by Marjorie Meehan DO> 02/25/221722 [facility] Work Phone: [phone] 834-599401-16-2023 Progress note Author Narinder Toussaint [facility] February 25, 2022 10:08am Note Date/Time February 25, 2022 1 0:08am [facility] [address] [place] [address] Nephrology Progress Note Signed Patient: Cinthya Wilson MR#: [id number] : 1945 Acct:[id number] Age/Sex: 76 / F Adm Date: 3 Loc: 4N Room: [address] [place] [address] Type: ADM IN Attending Dr: Marjorie Meehan [...] 81 Mg Tablet.Dr) 81 mg PO DAILY [facility] Stop: 02/23/23 08:59 Last Admin: 02/25/22 08:14 Dose: 81 mg Atorvastatin Calcium (Atorvastatin 40 Mg Tablet) 40 mg PO QPM [facility] Stop: 02/23/23 20:59 Last Admin: 02/24/22 21:28 Dose: 40 mg Calcium Acetate (Calcium Acetate 667 Mg Capsule) 667 mg PO TID.WITH.MEALS YESSENIA Stop: 02/24/23 16:59 Last Admin: 02/25/22 08:13 Dose: 667 mg Carvedilol (Carvedilol 12.5 Mg Tablet) 12.5 mg PO BID [facility] Stop: 02/23/23 08:59 Last Admin: 02/25/22 08:16 Dose: 12.5 mg Citalopram Hydrobromide (Citalopram 40 Mg Tablet) 40 mg PO DAILY [facility] Stop: 02/23/23 08:59 Last Admin: 02/25/22 08:14 Dose: 40 mg Heparin Sodium (Porcine) (Heparin 5,000 Unit/Ml Vial) 5,000 unit SUBCUT Q8HR [facility] Stop: 02/22/23 21:59 Last Admin: 02/25/22 06:06 Dose: 5,000 unit Heparin Sodium (Porcine) (Heparin 10,000 Unit/10 Ml Vial) 2,000 unit IV PRN PRN PRN Reason: Dialysis Stop: 02/23/23 10:58 Last Admin: 02/23/22 15:03 Dose: 2,000 unit Hydralazine HCl (Hydralazine 50 Mg Tablet) 50 mg PO TID YESSENIA Stop: 02/22/23 21:59 Last Admin: 02/25/22 08:14 Dose: 50 mg Sodium Chloride (0.9% Sodium Chloride 1,000 Ml) 1,000 mls @ 0 mls/hr MISCELLANE.Q0M PRN PRN Reason: Dialysis Stop: 02/23/23 10:58 Last Infusion: 02/23/22 15:06 Dose: Infused Insulin Aspart (Insulin Aspart 300 Units/3 Ml Insuln.Pen) 0 units SUBCUT TID.WM.HS [facility]; Protocol Stop: 02/22/23 21:59 Last Admin: 02/25/22 [...] * Outpatient dialysis is being arranged at [facility] dialysis unit closer to her home. Documented By: Narinder Toussaint MD 02/25/22 100 Signed By: <Electronically signed by MD Narinder Toussaint> 02/25/22 100 [facility] Work Phone: [phone] 382-376501-15-2023 Progress note Author Jamal Schaefer [facility] February 24, 2022 4:30pm Note Date/Time February 24, 2022 4 :27pm [facility] [address] [place] [address] Hospitalist Progress Note Signed with Addenda Patient: Cinthya Wilson MR#: [id number] : 1945 Acct:[id number] Age/Sex: 76 / F Adm Date: 3 Loc: 4N Room: [address] [place] [address] Type: ADM IN Attending Dr: Jamal Schaefer MD Copies to: ~ ADDENDUM1 Echocardiogram indicates mildly reduced ejection fraction, consistent with HFmrEF. Patient is already on beta-madhu. We will add ARB in the aldosterone inhibitor. Cannot receive SGLT2 due to renal dysfunction. Referral to cardiologyas outpatient. Addendum Documented By: Jamal Schaefer MD 02/24/22 163 Addendum Signed By: <Electronically signed by Jamal Schaefer MD> 02/24/22 1630 Date of Service: 02/24/2022 Subjective Subjective Narrative: [...] 02/23/22 09:00 02/24/22 08:27 Aspirin 81 Mg Tablet.Dr PO 02/23/23 08:59 [...] 02/23/22 09:00 02/24/22 08:26 Omeprazole 20 Mg Capsule. PO 02/23/23 08:59 [...] - 7 Documented By: Jamal Schaefer MD 02/24/221624 Signed By: <Electronically signed by Jamal Schaefer MD> 02/24/225 [facility] Work Phone: [phone] Progress note Author Narinder Toussaint [facility] February 24, 2022 2:20pm Note Date/Time February 24, 2022 2 :20pm [facility] [address] [place] [address] Nephrology Progress Note Signed Patient: Cinthya Wilson MR#: [id number] : 1945 Acct:[id number] Age/Sex: 76 / F Adm Date: 3 Loc: 4N Room: [address] [place] [address] Type: ADM IN Attending Dr: Jamal Schaefer [...] 81 Mg Tablet.Dr) 81 mg PO DAILY [facility] Stop: 02/23/23 08:59 Last Admin: 02/24/22 08:27 Dose: 81 mg Atorvastatin Calcium (Atorvastatin 40 Mg Tablet) 40 mg PO QPM YESS[facility]IA Stop: 02/23/23 20:59 Last Admin: 02/23/22 20:58 Dose: 40 mg Carvedilol (Carvedilol 12.5 Mg Tablet) 12.5 mg PO BID YESSENIA Stop: 02/23/23 08:59 Last Admin: 02/24/22 08:27 Dose: 12.5 mg Citalopram Hydrobromide (Citalopram 40 Mg Tablet) 40 mg PO DAILY [facility] Stop: 02/23/23 08:59 Last Admin: 02/24/22 08:26 Dose: 40 mg Docusate Sodium (Docusate 100 Mg Capsule) 100 mg PO BID [facility] Stop: 02/23/23 08:59 Last Admin: 02/24/22 08:27 Dose: 100 mg Furosemide (Furosemide 100 Mg/10 Ml Vial) 80 mg IV-PUSH BID@0800,1600 [facility] Stop: 02/22/23 21:24 Last Admin: 02/24/22 08:26 Dose: 80 mg Heparin Sodium (Porcine) (Heparin 5,000 Unit/Ml Vial) 5,000 unit SUBCUT Q8HR [facility] Stop: 02/22/23 21:59 Last Admin: 02/24/22 05:26 Dose: 5,000 unit Heparin Sodium (Porcine) (Heparin 10,000 Unit/10 Ml Vial) 2,000 unit IV PRN PRN PRN Reason: Dialysis Stop: 02/23/23 10:58 Last Admin: 02/23/22 15:03 Dose: 2,000 unit Hydralazine HCl (Hydralazine 50 Mg Tablet) 50 mg PO TID [facility] Stop: 02/22/23 21:59 Last Admin: 02/24/22 08:27 Dose: 50 mg Ceftriaxone Sodium (Rocephin) 1 gm in 50 mls @ 100 mls/hr IV Q24H [facility] Last Infusion: 02/23/22 21:36 Dose: Infused Sodium Chloride (0.9% Sodium Chloride 1,000 Ml) 1,000 mls @ 0 mls/hr MISCELLANE.Q0M PRN PRN Reason: Dialysis Stop: 02/23/23 10:58 Last Infusion: 02/23/22 15:06 Dose: Infused Insulin Aspart (Insulin Aspart 300 Units/3 Ml Insuln.Pen) 0 units SUBCUT TID.WM.HS [facility]; Protocol Stop: 02/22/23 21:59 Last Admin: 02/24/22 11:38 Dose: 1 units Isosorbide Mononitrate (Isosorbide Mononitrate 24hr Er 60 Mg Tab.Er.24h) 60 mg PO QAM [facility] Stop: 02/23/23 08:59 Last Admin: 02/24/22 08:26 Dose: 60 mg Melatonin (Melatonin 5 Mg Tablet) 5 mg PO QHS PRN PRN Reason: Insomnia Stop: 02/22/23 21:16 Nystatin (Nystatin 100,000 Unit/Gram Powder 15 Gm Bottle) 1 applic TOPICAL BID PRN PRN Reason: Skin Irritation Omeprazole (Omeprazole 20 Mg Capsule.Dr) 40 mg PO DAILY [facility] Stop: 02/23/23 08:59 Last Admin: 02/24/22 08:26 Dose: 40 mg Promethazine HCl (Promethazine 25 Mg/Ml Vial) 12.5 mg IV-PUSH Q6H PRN PRN Reason: Nausea And Vomiting Stop: 02/22/23 21:16 Sodium Bicarbonate (Sodium Bicarbonate 650 Mg Tablet) 1,300 mg PO TID [facility] Stop: 02/23/23 08:59 Last Admin: 02/24/22 08:27 [...] * Outpatient dialysis is being arranged at [facility] dialysis unit closer to her home. Documented By: Narinder Toussaint MD 02/24/22 1411 Signed By: <Electronically signed by MD Narinder Toussaint> 02/24/22 1420 [facility] Work Phone: [phone] Consult note Author Narinder Toussaint [facility] February 23, 2022 2:20pm Note Date/Time February 23, 2022 2 :20pm [facility] [address] [place] [address] Nephrology Consult Note Signed Patient: Cinthya Wilson MR#: [id number] : 1945 Acct:[id number] Age/Sex: 76 / F Adm Date: 3 Loc: Room: [address] [place] [address] Type: ADM IN Attending Dr: Jamal Schaefer MD Copies to: MD Lily Garrett II, MD Essam B Elashi, MD~ Providers Consult Date: 02/23/22 Requesting Provider: Jamal Schaefer MD Primary Care Provider: Lily Aldrich II, MD [facility] Reason for Consult: CKD stage V with [...] 81 Mg Tablet.) 81 mg PO DAILY [facility] Stop: 02/23/23 08:59 Last Admin: 02/23/22 08:25 Dose: 81 mg Atorvastatin Calcium (Atorvastatin 40 Mg Tablet) 40 mg PO QPM [facility] Stop: 02/23/23 20:59 Carvedilol (Carvedilol 12.5 Mg Tablet) 12.5 mg PO BID [facility] Stop: 02/23/23 08:59 Last Admin: 02/23/22 08:25 [...] 5,000 Unit/Ml Vial) 5,000 unit SUBCUT Q8HR [facility] Stop: 02/22/23 21:59 Last Admin: 02/23/22 13:36 Dose: Not Given Heparin Sodium (Porcine) (Heparin 10,000 Unit/10 Ml Vial) 2,000 unit IV PRN PRN PRN Reason: Dialysis Stop: 02/23/23 10:58 Hydralazine HCl (Hydralazine 50 Mg Tablet) 50 mg PO TID [facility] Stop: 02/22/23 21:59 Last Admin: 02/23/22 13:36 Dose: Not Given Ceftriaxone Sodium (Rocephin) 1 gm in 50 mls @ 100 mls/hr IV Q24H [facility] Sodium Chloride (0.9% Sodium Chloride 1,000 Ml) 1,000 mls @ 0 mls/hr MISCELLANE.Q0M PRN PRN Reason: Dialysis Stop: 02/23/23 10:58 Insulin Aspart (Insulin Aspart 300 Units/3 Ml Insuln.Pen) 0 units SUBCUT TID.WM.HS [facility]; Protocol Stop: 02/22/23 21:59 Last Admin: 02/23/22 13:35 Dose: Not Given Isosorbide Mononitrate (Isosorbide Mononitrate 24hr Er 60 Mg Tab.Er.24h) 60 mg PO QAM [facility] Stop: 02/23/23 08:59 Last Admin: 02/23/22 08:25 Dose: 60 mg Melatonin (Melatonin 5 Mg Tablet) 5 mg PO QHS PRN PRN Reason: Insomnia Stop: 02/22/23 21:16 Nystatin (Nystatin 100,000 Unit/Gram Powder 15 Gm Bottle) 1 applic TOPICAL BID PRN PRN Reason: Skin Irritation Omeprazole (Omeprazole 20 Mg Capsule.Dr) 40 mg PO DAILY [facility] Stop: 02/23/23 08:59 Last Admin: 02/23/22 08:25 Dose: 40 mg Promethazine HCl (Promethazine 25 Mg/Ml Vial) 12.5 mg IV-PUSH Q6H PRN PRN Reason: Nausea And Vomiting Stop: 02/22/23 21:16 Sodium Bicarbonate (Sodium Bicarbonate 650 Mg Tablet) 1,300 mg PO TID [facility] Stop: 02/23/23 08:59 Last Admin: 02/23/22 13:36 [...] Appearance Clear Urine pH 5.0 Ur Specific [place] 1.015 Urine Protein 100 H Urine Glucose [...] Dianna Pedro M.D.02/22/2022 8:01 PM Dictation Location: [place] [address] 02/22/22 18:50 IMPRESSION: ATROPHY AND CHRONIC MICROVASCULAR CHANGES. NO ACUTE INTRACRANIAL ABNORMALITY. Impression dictated by: Dianna Pedro M.D.02/22/2022 8:06 PM Dictation Location: [place] [address] Any impression(s) listed above is documentation that [...] <Electronically signed by MD Narinder Toussaint> 02/23/22 0942 [facility] Work Phone: [phone] Progress note Author Jamal Schaefer [facility] February 23, 2022 9:43am Note Date/Time February 23, 2022 9 :43am [facility] [address] [place] [address] Hospitalist Progress Note Signed Patient: Cinthya Wilson MR#: [id number] : 1945 Acct:[id number] Age/Sex: 76 / F Adm Date: 3 Loc: Room: [address] [place] [address] Type: ADM IN Attending Dr: Jamal Schaefer [...] Insuln.Pen SUBCUT 02/22/23 21:59 Not Given TID.WM.HS [facility] Protocol Isosorbide Mononitrate 60 mg 02/23/22 09:00 02/23/22 08:25 Isosorbide Mononitrate 24hr Er 60 Mg Tab.Er.24h PO 02/23/23 08:59 60 mg QAM [facility] Administration Melatonin 5 mg 02/22/22 21:17 Melatonin [...] daughter atbedside Documented By: Jamal Schaefer MD 02/23/22 8449 Signed By: <Electronically signed by Jamal Schaefer MD> 02/23/22 0943 [facility] Work Phone: [phone] History and physical note Author Gary Almaguer [facility] February 22, 2022 11:26pm Note Date/Time February 22, 2022 9 :35pm [facility] [address] [place] [address] Hospitalist H&P Signed Patient: Cinthya Wilson MR#: [id number] : 1945 Acct:[id number] Age/Sex: 76 / F Adm Date: 3 Loc: 4N Room: [address] [place] [address] Type: ADM IN Attending Dr: Gary Almaguer MD Copies to: MD Gary Bourgeois II, MD Paula G Smith, HARDNESS TESTER~ HPI DATE OF EXAMINATION: 02/22/22 CHIEF COMPLAINT: [...] states that she 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 CMP with a sodium of 132, .4, [...] block. She will be admitted to the Medrgtelemetry floor under the care of the hospitalist [...] Values Corrected WBC 6.8 X10E3/uL (3.8-11.6) 02/22/22 19:26 Uncorrected WBC Count 6.8 x10E3/uL (3.8-11.6) 02/22/22 19:26 RBC 2.77 X10E6/uL (3.60-5.00) L 02/22/22 19:26 Hgb 8.2 g/dL (11.8-15.4) L 02/22/22 19:26 Hct 26.0 % (34.0-46.4) L 02/22/22 19:26 MCV 94.0 fl (80-100) 02/22/22: MCH 29.6 pg (24.7-34.3) 02/22/22: MCHC 31.5 g/dL (32.0-35.0) L 02/22/22: RDW 16.2 % (11.9-15.3) H 02/22/22: Plt Count 240 x10E3/uL (150-450) 02/22/22: MPV 7.6 fl (6.3-10.7) 02/22/22: Neut % (Auto) 71.8 % (.) 02/22/22: Lymph % (Auto) 12.3 % (.) 02/22/22 Gilchrist % (Auto) 11.5 % (.) 02/22/22 Eos % (Auto) 3.7 % (.) 02/22/22 Baso % (Auto) 0.7 % (.) 02/22/22 Nucleat RBC Rel Count 0.1 /100 WBC (0-0.5) 02/22/22: Neut # (Auto) 4.9 x10E3/uL (1.8-7.7) 02/22/22: Lymph # (Auto) 0.8 x10E3/uL (1.00-4.8) L 02/22/22: [place] # (Auto) 0.8 x10E3/uL (0.0-0.8) 02/22/22: Eos # (Auto) 0.2 x10E3/uL (0.0-0.45) 02/22/22 Baso # (Auto) 0.0 x10E3/uL (0.0-0.2) 02/22/22 Monocyte Dist Width 18.44 % (0.00-20.00) 02/22/22: PT 15.6 Seconds (9.0-12.9) H 02/22/22: INR 1.4 02/22/22: APTT 36.0 Seconds (25.1-36.5) 02/22/22: PHA Creatinine Clear 9.34 02/22/22 19: Sodium 132 mmol/L (136-146) L 02/22/22 19: Potassium 5.0 mmol/L (3.5-5.1) 02/22/22: Chloride 100 mmol/L (95-114) 02/22/22 19: Carbon Dioxide 18.4 mmol/L (22.0-30.0) L 02/22/22: Anion Gap 18.6 mEq/L (6.0-15.0) H 02/22/22 19: BUN 126 mg/dL (9-23) H 02/22/22 19: Creatinine 5.19 mg/dL (0.44-1.03) H 02/22/22: Est GFR ( Amer) 10 mL/Min 02/22/22: Est GFR (Non-Af Amer) 8 mL/Min 02/22/22: Glucose 142 mg/dL (70-100) H 02/22/22: Calcium 9.4 mg/dL (8.2-10.2) 02/22/22 19: Total Creatine Kinase 54 U/L (22-269) 02/22/22 19: CK-MB (CK-2) 4.5 ng/mL (0.6-6.3) 02/22/22: CK-MB (CK-2) Rel Index 8.3 % (0.00-2.50) H 02/22/22 19: Troponin I High Sens 82 pg/mL (0-15) H* 02/22/22 19: B-Natriuretic Peptide 3549.0 pg/mL (5-100) H 02/22/22 19: Urine Color Yellow (Yellow) 02/22/22 19: Urine Appearance Clear (Clear) 02/22/22 19: Urine pH 5.0 (5.0-9.0) 02/22/22 19: Ur Specific [place] 1.015 (1.001-1.030) 02/22/22 19: Urine Protein 100 mg/dL (Negative) H 02/22/22 19: Urine Glucose (UA) Normal mg/dL (Normal) 02/22/22 19: Urine Ketones Negative (Negative) 02/22/22 19:08 Urine Occult Blood Negative (Negative) 02/22/22 19:08 Urine Nitrite Negative (Negative) 02/22/22 19:08 Urine Bilirubin Negative (Negative) 02/22/22 19:08 Urine [...] intubation as discussed with patient and daughter [facility] Attending Physician Attestation: I personally reviewed the [...] 02/22/222301 <Electronically signed by Gary Almaguer MD> 02/22/222325 [facility] Work Phone: [phone]) 576-169312-30-2022 Evaluation note* Encounter Date Diagnosis Assessment Notes Treatment Notes Treatment Clinical Notes Jan, Anemia associated with chronic renal failure (ICD-10 - D63.1) Jan, CKD (chronic kidney disease) stage 4, GFR 15-29 ml/min (ICD-10 - N18.4) due to diabetes milieus type 2, GFR 20 ml/min/1.73 m2 surface area [employer] Other 12-08-2022 Evaluation note* Encounter Date Diagnosis [...] call us with any issues or concerns. [employer] Other 11-10-2022 Evaluation note* Encounter Date Diagnosis [...] to the patient is up to her qa tester if and when she starts dialysis. [employer] Other [phone] Evaluation note* Encounter Date Diagnosis Assessment Notes [...] artery disease. Follows with cardiology clinic in [facility] continue same dose of Lasix Nov, Hypertensive [...] (ICD-10 - E78.2) Follow-up with Dr. Edwards. 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 Orthopedic consult was [...] Left Fistulagram W/TLA & Embolization(Left) - David oSuth MD Diagnostic Studies Completed and Pending Studies [...] % (Auto) 70.9, Lymph % (Auto) 12.9, Gilchrist % (Auto) 14.1, Eos % (Auto) 1.6, Baso % (Auto) 0.5, Neut # (Auto) 5.8, Lymph # (Auto) 1.1, Gilchrist # (Auto) 1.2 H, Eos # (Auto) 0.1, Baso # (Auto) 0.0, Nucleated RBC % (auto) 0.0 11/19/21 21:23: POC Glucose 160 10/10/22 16:59: POC Glucose 209, POC Glucose Comment [...] go home. She does not go to long term. HEENT: [place] conjunctiva and NL buccal mucosa Neck: Supple, [...] Plan Discharge Plan Patient Disposition: Home Health [facility] Diet: Renal Additional Instructions: Home health to [...] Communicate with your primary care doctor or shipping and receiving specialist if your blood sugar is under 100 or above 300 on 2 consecutive checks. Communicate with your primary care doctor or shipping and receiving specialist if you have any questions about [...] ask your primary care provider to obtain [facility] records entirely to follow up on all of the abnormal physical, laboratory, and imaging findings that I have not addressed. Please return back to the emergency room or seek medical attention if your symptoms worsen or return. Discharging you from [facility] does not mean that your medical [...] subcut DAILY Label Comments: Had 30 units 05/18/20 am Rx Instructions: Subq per instructions citalopram [...] signed by Annette Tenorio MD> 11/20/21 1243 [facility] Work Phone: [phone] 750-208610-11-2022 Progress note Author Wood Zavala [facility] November 20, 2021 12:42pm Note Date/Time November 20, 2021 1 0:51am [facility] [address] [place] [address] Nephrology Progress Note Signed Patient: Cinthya Wilson MR#: [id number] : 1945 Acct:[id number] Age/Sex: 76 / F Adm Date: 2 Loc: Room: [address] [place] [address] Type: ADM IN Attending Dr: Annette Tenorio [...] admitted to.? Patient has been? been in [facility] rehab center after hospital discharge since Mondays.? Patient developed sudden onset of shortness of breath today and was reported to the hospital.? Patient told me she had rightside veterans service representative twice for the last few weeks [...] Bisacodyl (Bisacodyl 10 Mg Supp.Rect) 10 mg WV DAILY PRN PRN Reason: Constipation Stop: 11/16/22 [...] 20 Mg Tablet) 60 mg PO BID@0800,1600 YESSENIA Stop: 11/19/22 15:59 Last Admin: 11/20/21 08:26 [...] Units/3 Ml Insuln.Pen) 0 units SUBCUT TID.WM.HS [facility]; Protocol Stop: 11/16/22 11:59 Last Admin: 11/20/21 07:54 Dose: Not Given Isosorbide Mononitrate (Isosorbide Mononitrate 24hr Er 60 Mg Tab.Er.24h) 60 mg PO QAM YESSENIA Stop: 11/17/22 08:59 Last Admin: 11/20/21 08:26 Dose: 60 mg Lidocaine (Lidocaine 4% Adh..Patch) 1 patch TOPICAL DAILY [facility] Stop: 11/16/22 13:29 Last Admin: 11/20/21 08:27 Dose: 1 patch Multivitamins (Multivitamin 1 Tab Tablet) 1 tab PO DAILY [facility] Stop: 11/17/22 08:59 Last Admin: 11/20/21 08:26 Dose: 1 tab Nitroglycerin (Nitroglycerin 0.4 Mg Tab.Subl) 0.4 mg SUBLINGUAL Q5M PRN PRN Reason: Chest Pain Stop: 11/16/22 09:49 Omeprazole (Omeprazole 20 Mg Capsule.Dr) 40 mg PO DAILY [facility] Stop: 11/17/22 08:59 Last Admin: 11/20/21 08:26 [...] (1,000 Units) Tablet) 25 mcg PO DAILY [facility] Stop: 11/17/22 08:59 Last Admin: 11/20/21 08:27 Dose: 25 mcg Allergies lisinopril Allergy (Verified 07/10/21 11:48) Cough Results Labs CBC & Chem 7: 11/20/21 05:32 11/20/21 05:32 Labs: 11/20/21 05:32 BUN 69 H Creatinine 3.04 H Radiology Impressions Impressions - last 24 hours: Impressions A/V Fistula Ultrasound 11/19/21 07:00 Impression: As above Impression dictated by: Maxime Bhatti MD11/19/2021 4:39 PM Dictation Location: [place] [address] Shoulder X-Ray 11/19/21 11:19 IMPRESSION: NO EVIDENCE OF HARDWARE COMPLICATION. Impression dictated by: Quintin Matamoros Jr., D.O.11/19/2021 8:46 PM Dictation Location: [place] [address] Any impression(s) listed above is documentation that [...] signed by Wood Zavala MD> 11/20/21 1242 [facility] Work Phone: [phone]) [phone] Hospital Discharge instructions Additional Instructions Home health [...] Communicate with your primary care doctor or shipping and receiving specialist if your blood sugar is under 100 or above 300 on 2 consecutive checks. Communicate with your primary care doctor or shipping and receiving specialist if you have any questions about [...] ask your primary care provider to obtain [facility] records entirely to follow up on all of the abnormal physical, laboratory, and imaging findings that I have not addressed. Please return back to the emergency room or seek medical attention if your symptoms worsen or return. Discharging you from [facility] does not mean that your medical care ends here and now. You may still need additional monitoring, work up, investigation, and treatment plan to be handled from this point on by out patient providers including your primary care provider and specialists. For any medication question, please contact your retail pharmacist or your primary care provider. Thank you.[facility] Work Phone: [phone]) 330-269010-11-2022 Consult note Author Yamileth Levi [facility] November 20, 2021 10:02am Note Date/Time November 19, 2021 1 2:57pm [facility] [address] [place] [address] Orthopedic Consult Note Signed Patient: Cinthya Wilson MR#: [id number] : 1945 Acct:[id number] Age/Sex: 76 / F Adm Date: 2 Loc: Room: [address] [place] [address] Type: ADM IN Attending Dr: Annette Tenorio [...] tells me that she went to the [facility] and they told her she had [...] exenatide microspheres 2 mg/0.85 mL subcutaneous auto-injector (Bydureon BCise) 2 mg subcut QWEEK diabetes 05/16/20 [History [...] % (Auto) 72.1, Lymph % (Auto) 12.5, Gilchrist % (Auto) 11.6, Eos % (Auto) 3.2, Baso % (Auto) 0.6, Neut # (Auto) 6.0, Lymph # (Auto) 1.0, Gilchrist # (Auto) 1.0H, Eos # (Auto) 0.3, [...] % (Auto) 61.8, Lymph % (Auto) 18.2, Gilchrist % (Auto) 13.3, Eos % (Auto) 5.3, Baso % (Auto) 1.4, Neut # (Auto) 3.3, Lymph # (Auto) 1.0, Gilchrist # (Auto) 0.7, Eos # (Auto) 0.3, [...] Code(s): I25.10 - Atherosclerotic heart disease of algaaciq coronary artery without angina pectoris (8) Anemia: [...] signed by Yamileth Levi MD> 11/20/21 1002 [facility] Work Phone: [phone] Consult note Author David South [facility] November 19, 2021 5:31pm Note Date/Time November 19, 2021 8 :36am [facility] [address] [place] [address] Vascular Surgery Consult Note Signed Patient: Cinthya Wilson MR#: [id number] : 1945 Acct:[id number] Age/Sex: 76 / F Adm Date: 2 Loc: Room: [address] [place] [address] Type: ADM IN Attending Dr: Annette Tenorio MD Copies to: MD Tessie Bourgeois II, MD Annette Aguilar MD~ HPI Consult HPI Reason for consult: [...] She has good hand function and adequate boat buffer plastic strength when compared bilaterally. This is Dr. [...] MPV Neut % (Auto) Lymph % (Auto) Gilchrist % (Auto) Eos % (Auto) Baso % (Auto) Neut # (Auto) Lymph # (Auto) Gilchrist # (Auto) Eos # (Auto) Baso # [...] % (Auto) 72.1 Lymph % (Auto) 12.5 Gilchrist % (Auto) 11.6 Eos % (Auto) 3.2 Baso % (Auto) 0.6 Neut # (Auto) 6.0 Lymph # (Auto) 1.0 Gilchrist # (Auto) 1.0 H Eos # (Auto) [...] <Electronically signed by MD David South> 11/19/21 1731 [facility] Work Phone: [phone]) [phone] Progress note Author Annette Tenorio [facility] November 19, 2021 12:16pm Note Date/Time November 19, 2021 1 2:16pm [facility] [address] [place] [address] Hospitalist Progress Note Signed Patient: Cinthya Wilson MR#: [id number] : 1945 Acct:[id number] Age/Sex: 76 / F Adm Date: 2 Loc: Room: [address] [place] [address] Type: ADM IN Attending Dr: Annette Tenorio [...] mg 11/16/21 09:50 Bisacodyl 10 Mg Supp.Rect WV 11/16/22 09:49 DAILY PRN Constipation Bisacodyl 10 mg 11/16/21 09:50 Bisacodyl 5 Mg Tablet. PO 11/16/22 09:49 DAILY PRN Constipation Carvedilol [...] Capsule PO 11/17/22 20:59 Not Given BID [facility] Furosemide 80 mg 11/16/21 14:00 11/19/21 09:31 Furosemide 100 Mg/10 Ml Vial IV-PUSH 11/16/22 13:59 Not Given BID@0800,1600 [facility] Glucose 0 gm 11/16/21 09:53 Dextrose 40% Gel 15 Gm Tube PO 11/16/22 09:52 PRN PRN Hypoglycemia Heparin Sodium (Porcine) 5,000 unit 11/18/21 09:00 11/19/21 09:30 Heparin 5,000 Unit/Ml Vial SUBCUT 11/18/22 08:59 Not Given Q12HR [facility] Hydralazine HCl 50 mg 11/16/21 14:00 11/19/21 09:30 Hydralazine 50 Mg Tablet PO 11/16/22 13:59 Not Given TID [facility] Sodium Chloride 1,000 mls @ 0 mls/hr 11/17/21 09:07 11/17/21 11:11 0.9% Sodium Chloride 1,000 Ml MISCELLANE 11/17/22 09:06 Infused .Q0M PRN Infusion Dialysis As Directed Insulin Aspart 0 units 11/16/21 12:00 11/19/21 09:29 Insulin Aspart 300 Units/3 Ml Insuln.Pen SUBCUT 11/16/22 11:59 Not Given TID.WM.HS [facility] Protocol Isosorbide Mononitrate 60 mg 11/17/21 09:00 11/19/21 09:30 Isosorbide Mononitrate 24hr Er 60 Mg Tab.Er.24h PO 11/17/22 08:59 Not Given QAM [facility] Lidocaine 1 patch 11/16/21 13:30 11/18/21 08:33 Lidocaine 4% Adh..Patch TOPICAL 11/16/22 13:29 1 patch DAILY [facility] Administration Multivitamins 1 tab 11/17/21 09:00 11/19/21 09:31 Multivitamin 1 Tab Tablet PO 11/17/22 08:59 Not Given DAILY [facility] Nitroglycerin 0.4 mg 11/16/21 09:50 Nitroglycerin 0.4 [...] PO 11/17/22 08:59 Not Given DAILY YESSENIA A&P - Hospitalist Assessment/Plan (1) Recurrent right [...] catheter placed at previous hospital stay in [place] aspatient experienced difficulty starting urine stream -Patient has been constipated, which may be causing bladder or urinary retention 6. Elevated troponin. No chest pain. No active angina. No clinical evidence to suggest ACS. 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 She may need to have additional ischemic evaluation electively. Past medical history: COPD -continue albuterol/ipratropium Hypertension -continue carvedilol, hydralazine Diabetes -continue insulin aspart CAD -continue atorvastatin Documented By: Annette Tenorio MD 11/19/21 1118 Signed By: <Electronically signed by Annette Tenorio MD> 11/19/21 1216 [facility] Work Phone: [phone] Progress note Author Wood Zavala [facility] November 19, 2021 11:35am Note Date/Time November 19, 2021 1 1:32am [facility] [address] [place] [address] Nephrology Progress Note Signed Patient: Cinthya Wilson MR#: [id number] : 1945 Acct:[id number] Age/Sex: 76 / F Adm Date: 2 Loc: Room: [address] [place] [address] Type: ADM IN Attending Dr: Annette Tenorio [...] wasadmitted to. Patient has been been in [facility] rehab center after hospital discharge since Mondays. Patient developed sudden onset of shortness of breath today and was reported to the hospital. 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, following simple command Musculoskeletal: No joint [...] Bisacodyl (Bisacodyl 10 Mg Supp.Rect) 10 mg WV DAILY PRN PRN Reason: Constipation Stop: 11/16/22 [...] Units/3 Ml Insuln.Pen) 0 units SUBCUT TID.WM.HS [facility]; Protocol Stop: 11/16/22 11:59 Last Admin: 11/19/21 09:29 Dose: Not Given Isosorbide Mononitrate (Isosorbide Mononitrate 24hr Er 60 Mg Tab.Er.24h) 60 mg PO QAM YESSENIA Stop: 11/17/22 08:59 Last Admin: 11/19/21 11:24 Dose: 60 mg Lidocaine (Lidocaine 4% Adh..Patch) 1 patch TOPICAL DAILY YESS[facility]IA Stop: 11/16/22 13:29 Last Admin: 11/19/21 11:25 Dose: 1 patch Multivitamins (Multivitamin 1 Tab Tablet) 1 tab PO DAILY [facility] Stop: 11/17/22 08:59 Last Admin: 11/19/21 09:31 [...] YESSENIA Stop: 11/17/22 08:59 Last Admin: 11/19/21 09:29 Dose: Not Given Allergies lisinopril Allergy (Verified 07/10/21 11:48) Cough Results Labs CBC & Chem 7: 11/19/21 04:44 11/19/21 04:44 Labs: 11/19/21 04:44 BUN 72 H Creatinine 3.12 H Radiology Impressions Impressions - last 24 hours: Any impression(s) listed above is documentation that was entered by the reading physician into a diagnostic report(s) for Cintyha Wilson. I have reviewed the report(s) and [...] Dr. Fofana in 1 week. Documented By: oWod Zavala MD 11/19/21 112 Signed By: <Electronically signed by Wood Zavala MD> 11/19/21 1136 [facility] Work Phone: [phone] Progress note Author Geronimo Fofana [facility] November 18, 2021 1:16pm Note Date/Time November 18, 2021 1: 16pm [facility] [address] [place] [address] Nephrology Progress Note Signed Patient: Cinthya Wilson MR#: [id number] : 1945 Acct:[id number] Age/Sex: 76 / F Adm Date: 2 Loc: Room: [address] [place] [address] Type: ADM IN Attending Dr: Carlton Mtz [...] wasadmitted to. [facility] Mondays. Patient developed sudden onset of shortness of breath today and was reported to the hospital. Patient told me she had right side veterans service representative twice for the last few weeks [...] Bisacodyl (Bisacodyl 10 Mg Supp.Rect) 10 mg WV DAILY PRN PRN Reason: Constipation Stop: 11/16/22 [...] BID YESSENIA Stop: 11/17/22 20:59 Last Admin: 11/17/21 22:36 [...] Q12HR YESSENIA Stop: 11/18/22 08:59 Last Admin: 11/18/21 08:33 [...] Units/3 Ml Insuln.Pen) 0 units SUBCUT TID.WM.HS [facility]; Protocol Stop: 11/16/22 11:59 Last Admin: 11/18/21 08:40 Dose: 1 units Isosorbide Mononitrate (Isosorbide Mononitrate 24hr Er 60 Mg Tab.Er.24h) 60 mg PO QAM [facility] Stop: 11/17/22 08:59 Last Admin: 11/18/21 08:32 Dose: 60 mg Lidocaine (Lidocaine 4% Adh..Patch) 1 patch TOPICAL DAILY [facility] Stop: 11/16/22 13:29 Last Admin: 11/18/21 08:33 [...] tomorrow. Patient will be set up at [place] hemodialysis unit before discharge. Patient needs fistulogram and angioplasty of left upper extremity AV fistula before discharge. Renal team will continue to follow. Call if any question Documented By: Geronimo Fofana MD 11/18/21 1317 Signed By: <Electronically signed by Geronimo Fofana MD> 11/18/21 4045 [facility] Work Phone: [phone] Progress note Author Carlton Mtz [facility] November 18, 2021 11:59am Note Date/Time November 18, 2021 11 :59am [facility] [address] [place] [address] Hospitalist Progress Note Signed Patient: Cinthya Wilson MR#: [id number] : 1945 Acct:[id number] Age/Sex: 76 / F Adm Date: 2 Loc: Room: [address] [place] [address] Type: ADM IN Attending Dr: Carlton Mtz [...] mg 11/16/21 09:50 Bisacodyl 10 Mg Supp.Rect WV 11/16/22 09:49 DAILY PRN Constipation Bisacodyl 10 [...] 11/17/21 09:00 11/18/21 08:32 Omeprazole 20 Mg Capsule.Dr PO 11/17/22 08:59 [...] catheter on a previous hospital stay in [place]. Patient experienced difficulty starting urine stream at the nursing home facility. Patient does have constipation, which may [...] my signature. Documented By: Carlton Mtz DO 929 Signed By: <Electronically signed by Carlton Mtz DO> 11/18/21 1159 [facility] Work Phone: [phone]) 293-501010-08-2022 Progress note Author Carlton tMz [facility] November 17, 2021 4:35pm Note Date/Time November 17, 2021 4: 20pm [facility] [address] [place] [address] Hospitalist Progress Note Signed Patient: Cinthya Wilson MR#: [id number] : 1945 Acct:[id number] Age/Sex: 76 / F Adm Date: 2 Loc: 4 Room: [address] [place] [address] Type: ADM IN Attending Dr: Carlton Mtz [...] mg 11/16/21 09:50 Bisacodyl 10 Mg Supp.Rect WV 11/16/22 09:49 DAILY PRN Constipation Bisacodyl 10 mg 11/16/21 09:50 Bisacodyl 5 Mg Tablet.Dr PO 11/16/22 09:49 DAILY PRN Constipation Carvedilol 12.5 mg 11/16/21 17:00 10/08/22 07:45 Carvedilol 12.5 Mg Tablet PO 11/16/22 [...] patch DAILY YESSENIA Administration Multivitamins 1 tab 10/08/22 09:00 11/17/21 11:57 Multivitamin 1 Tab Tablet [...] at 7.2. Documented By: Carlton Mtz DO 8509 Signed By: <Electronically signed by Carlton Mtz DO> 11/17/21 8837 [facility] Work Phone: [phone] Progress note Author Geronimo Fofana [facility] November 17, 2021 12:56pm Note Date/Time November 17, 2021 12 :56pm [facility] [address] [place], [place] [address] Nephrology Progress Note Signed Patient: Cinthya Wilson MR#: [id number] : 1945 Acct:[id number] Age/Sex: 76 / F Adm Date: 2 Loc: Room: [address] [place] [address] Type: ADM IN Attending Dr: Carlton Mtz [...] wasadmitted to. Patient has been been in [facility] rehab center after hospital discharge since Mondays. Patient developed sudden onset of shortness of breath today and was reported to the hospital. Patient told me she had right side veterans service representative twice for the last few weeks [...] Bisacodyl (Bisacodyl 10 Mg Supp.Rect) 10 mg WV DAILY PRN PRN Reason: Constipation Stop: 11/16/22 09:49 Bisacodyl (Bisacodyl 5 Mg Tablet.Dr) 10 mg PO DAILY PRN PRN Reason: Constipation Stop: 11/16/22 09:49 Carvedilol (Carvedilol 12.5 Mg Tablet) 12.5 mg PO BID.WITH.MEALS YESSENIA Stop: 11/16/22 16:59 Last Admin: 11/17/21 07:45 [...] BID YESSENIA Stop: 11/16/22 20:59 Last Admin: 11/17/21 12:05 Dose: 100 mg Enoxaparin Sodium (Enoxaparin 40 Mg/0.4 Ml Syringe) 40 mg SUBCUT DAILY@10 YESSENIA Stop: 11/17/22 09:59 Last Admin: 11/17/21 12:00 Dose: 40 mg Furosemide (Furosemide 100 Mg/10 Ml Vial) 80 mg IV-PUSH BID@0800,1600 YESSENIA Stop: 11/16/22 13:59 Last Admin: 11/17/21 12:25 Dose: 80 mg Glucose (Dextrose 40% Gel 15 Gm Tube) 0 gm PO PRN PRN PRN Reason: Hypoglycemia Stop: 11/16/22 09:52 Hydralazine HCl (Hydralazine 50 Mg Tablet) 50 mg PO TID YESSENIA Stop: 11/16/22 13:59 Last Admin: 11/17/21 09:15 Dose: Not Given Sodium Chloride (0.9% Sodium Chloride 1,000 Ml) 1,000 mls @ 0 mls/hr MISCELLANE.Q0M PRN PRN Reason: Dialysis Stop: 11/17/22 09:06 Last Infusion: 11/17/21 11:11 Dose: Infused Insulin Aspart (Insulin Aspart 300 Units/3 Ml Insuln.Pen) 0 units SUBCUT TID.WM.HS [facility]; Protocol Stop: 11/16/22 11:59 Last Admin: 11/17/21 12:05 Dose: 2 units Isosorbide Mononitrate (Isosorbide Mononitrate 24hr Er 60 Mg Tab.Er.24h) 60 mg PO QAM [facility] Stop: 11/17/22 08:59 Last Admin: 11/17/21 11:58 Dose: 60 mg Lidocaine (Lidocaine 4% Adh..Patch) 1 patch TOPICAL DAILY [facility] Stop: 11/16/22 13:29 Last Admin: 11/17/21 11:58 Dose: 1 patch Multivitamins (Multivitamin 1 Tab Tablet) 1 tab PO DAILY [facility] Stop: 11/17/22 08:59 Last Admin: 11/17/21 11:57 Dose: 1 tab Nitroglycerin (Nitroglycerin 0.4 Mg Tab.Subl) 0.4 mg SUBLINGUAL Q5M PRN PRN Reason: Chest Pain Stop: 11/16/22 09:49 Omeprazole (Omeprazole 20 Mg Capsule.Dr) 40 mg PO DAILY [facility] Stop: 11/17/22 08:59 Last Admin: 11/17/21 11:58 [...] Dianna Pedro M.D.11/16/2021 4:16 PM Dictation Location: [facility] Shoulder X-Ray 11/16/21 13:13 IMPRESSION: NEW SHOULDER REPLACEMENT. QUESTION OF POSTOPERATIVE CHANGE INVOLVING THE ACROMION. CORRELATION WITH SURGICAL PROCEDURE IS SUGGESTED. Impression dictated by: Dianna Pedro M.D.11/16/2021 6:11 PM Dictation Location: [facility]-- Chest X-Ray 11/16/21 15:28 IMPRESSION: There is a right-sided pleural effusion which has significantly decreased in size. There is no pneumothorax. Impression dictated by: Jossie Díaz M.D.11/16/2021 3:43 PM Dictation Location: [place] [address] Chest X-Ray 11/17/21 05:00 IMPRESSION: Developing mild RIGHT basilar pleural-parenchymal changes. Continued mild LEFT basilar pleural-parenchymal change. Impression dictated by: David Archer M.D.11/17/2021 7:37 AM Dictation Location: [place] [address] Any impression(s) listed above is documentation that [...] tomorrow. Patient will be set up at [place] hemodialysis unit before discharge. Patient needs fistulogram and angioplasty of left upper extremity AV fistula before discharge. Renal team will continue to follow. Call if any question Documented By: Geronimo Fofana MD 11/17/21 5321 Signed By: <Electronically signed by Geronimo Fofana MD> 11/17/21 3496 [facility] Work Phone: [phone]) 383-773010-08-2022 Progress note Author Danny Pitts [facility] November 17, 2021 11:16am Note Date/Time November 17, 2021 11 :06am [facility] [address] [place] [address] Pulmonology Progress Note Signed Patient: Cinthya Wilson MR#: [id number] : 1945 Acct:[id number] Age/Sex: 76 / F Adm Date: 2 Loc: Room: [address] [place] [address] Type: ADM IN Attending Dr: Carlton Mtz [...] time. Documented By: Danny Pitts MD 11/17/21 110 Signed By: <Electronically signed by Danny Pitts MD> 11/17/21 1116 [facility] Work Phone: [phone] Consult note Author Geronimo Fofana [facility] November 16, 2021 3:26pm Note Date/Time November 16, 2021 3: 26pm [facility] [address] [place] [address] Nephrology Consult Note Signed Patient: Cinthya Wilson MR#: [id number] : 1945 Acct:[id number] Age/Sex: 76 / F Adm Date: 2 Loc: Room: [address] [place] [address] Type: ADM IN Attending Dr: Carlton Mtz DO Copies to: MD Lily Allen II, MD Kristopher L Lindbloom, DO~ Providers Consult Date: 11/16/21 Requesting Provider: Carlton Mtz DO Primary Care Provider: Lily Aldrich II, MD [facility] Reason for Consult: CKD progression and fluid [...] wasadmitted to. Patient has been been in [facility] after hospital discharge since Mondays. Patient developed sudden onset of shortness of breath today and was reported to the hospital. Patient told me she had rightside veterans service representative twice for the last few weeks [...] exenatide microspheres 2 mg/0.85 mL subcutaneous auto-injector (Bydureon BCise) 2 mg subcut QWEEK diabetes 05/16/20 [History [...] Bisacodyl (Bisacodyl 10 Mg Supp.Rect) 10 mg WV DAILY PRN PRN Reason: Constipation Stop: 11/16/22 09:49 Bisacodyl (Bisacodyl 5 Mg Tablet.Dr) 10 mg PO DAILY PRN PRN Reason: Constipation Stop: 11/16/22 09:49 Carvedilol (Carvedilol 12.5 Mg Tablet) 12.5 mg PO BID.WITH.MEALS [facility] Stop: 11/16/22 16:59 Citalopram Hydrobromide (Citalopram 40 Mg Tablet) 40 mg PO DAILY [facility] Stop: 11/17/22 08:59 Dextrose (Dextrose 50% In Water 25 Gm/50 Ml Syringe) 0 gm IV-PUSH PRN PRN PRN Reason: Hypoglycemia Stop: 11/16/22 09:52 Docusate Sodium (Docusate 100 Mg Capsule) 100 mg PO BID [facility] Stop: 11/16/22 20:59 Enoxaparin Sodium (Enoxaparin 40 Mg/0.4 Ml Syringe) 40 mg SUBCUT DAILY@10 [facility] Stop: 11/17/22 09:59 Furosemide (Furosemide 100 Mg/10 Ml Vial) 80 mg IV-PUSH BID@0800,1600 [facility] Stop: 11/16/22 13:59 Last Admin: 11/16/21 14:45 Dose: 80 mg Glucose (Dextrose 40% Gel 15 Gm Tube) 0 gm PO PRN PRN PRN Reason: Hypoglycemia Stop: 11/16/22 09:52 Hydralazine HCl (Hydralazine 50 Mg Tablet) 50 mg PO TID [facility] Stop: 11/16/22 13:59 Last Admin: 11/16/21 14:45 Dose: 50 mg Insulin Aspart (Insulin Aspart 300 Units/3 Ml Insuln.Pen) 0 units SUBCUT TID..[facility]; Protocol Stop: 11/16/22 11:59 Last Admin: 11/16/21 12:15 Dose: 1 units Isosorbide Mononitrate (Isosorbide Mononitrate 24hr Er 60 Mg Tab.Er.24h) 60 mg PO QAM [facility] Stop: 11/17/22 08:59 Lidocaine (Lidocaine 4% Adh..Patch) 1 patch TOPICAL DAILY [facility] Stop: 11/16/22 13:29 Last Admin: 11/16/21 14:45 Dose: 1 patch Multivitamins (Multivitamin 1 Tab Tablet) 1 tab PO DAILY [facility] Stop: 11/17/22 08:59 Nitroglycerin (Nitroglycerin 0.4 Mg Tab.Subl) 0.4 mg SUBLINGUAL Q5M PRN PRN Reason: Chest Pain Stop: 11/16/22 09:49 Omeprazole (Omeprazole 20 Mg Capsule.Dr) 40 mg PO DAILY [facility] Stop: 11/17/22 08:59 Sodium Chloride (Sodium Chloride 0.9 % 10 Ml Syringe) 0 ml IV-PUSH PRN PRN PRN Reason: Flush Stop: 11/16/22 09:49 Vitamin D (Cholecalciferol 25 Mcg (1,000 Units) Tablet) 25 mcg PO DAILY [facility] Stop: 11/17/22 08:59 Exam Physical Exam Vital [...] David Archer M.D.11/16/2021 9:39 AM Dictation Location: [place] [address] Any impression(s) listed above is documentation that [...] question Documented By: Geronimo Fofana MD 11/16/21 4066 Signed By: <Electronically signed by Geronimo Fofana MD> 11/16/21 3225 [facility] Work Phone: 1(241) 856-448610-07-2022 Consult note Author Danny Pitts [facility] November 16, 2021 3:01pm Note Date/Time November 16, 2021 2: 11pm [facility] [address] [place] [address] Pulmonology Consult Note Signed Patient: Cinthya Wilson MR#: [id number] : 1945 Acct:[id number] Age/Sex: 76 / F Adm Date: 2 Loc: Room: [address] [place] [address] Type: ADM IN Attending Dr: Carlton Mtz DO Copies to: MD Lily Winters II, MD Kristopher L Lindbloom, DO~ HPI Date/Time of Consultation: Date of Service: [...] exenatide microspheres 2 mg/0.85 mL subcutaneous auto-injector (Bydureon BCise) 2 mg subcut QWEEK diabetes 05/16/20 [History [...] hemodialysis Documented By: Danny Pitts MD 11/16/21 1407 Signed By: <Electronically signed by Danny Pitts MD> 11/16/21 1505 [facility] Work Phone: 1(520) 493-477510-07-2022 History and physical note Author Carlton Mtz [facility] November 16, 2021 1:13pm Note Date/Time November 16, 2021 1: 13pm [facility] [address] [place] [address] Hospitalist H&P Signed Patient: Cinthya Wilson MR#: [id number] : 1945 Acct:[id number] Age/Sex: 76 / F Adm Date: 2 Loc: Room: [address] [place] [address] Type: ADM IN Attending Dr: Carlton Mtz DO Copies to: MD Carlton Bourgeois II, DO~ HPI DATE OF EXAMINATION: 11/16/21 CHIEF COMPLAINT: Progressive dyspnea HISTORY OF PRESENT ILLNESS: This is a 76-year-old woman who presented to an outside hospital emergency room with progressive dyspnea. She has been at a nursing home facility after right shoulder injury for physical [...] which she said was worse at the nursing home facility but is better now. She does [...] except as mentioned elsewhere in the documentation. [facility] Yes Medical History (Updated 11/16/21 @ 13:12 by Carlotn Mtz DO) Anemia Anxiety Anxiety and depression [...] exenatide microspheres 2 mg/0.85 mL subcutaneous auto-injector ([employer] BCise) 2 mg subcut QWEEK diabetes 05/16/20 [History [...] % (Auto) 12.2 % (.) 11/16/21 11:25 Gilchrist % (Auto) 14.0 % (.) 11/16/21 11:25 Eos % (Auto) 4.4 % (.) 11/16/21 11:25 Baso % (Auto) 0.7 % (.) 11/16/21 11:25 Neut # (Auto) 4.2 x10E3/uL (1.8-7.7) 11/16/21 11:25 Lymph # (Auto) 0.7 x10E3/uL (1.00-4.8) L 11/16/21 11:25 Gilchrist # (Auto) 0.8 x10E3/uL (0.0-0.8) 11/16/21 11:25 [...] signed by Carlton Mtz DO> 11/16/21 1313 [facility] Work Phone: 1(530) 333-289108-11-2022 Evaluation note* Encounter Date Diagnosis Assessment Notes [...] protocol. She has upcoming appointment with her qa tester in November and will continue to follow [...] with this plan, and denies any questions. [employer] Other 06-15-2022 Evaluation note* Encounter Date Diagnosis [...] artery disease. Follows with cardiology clinic in [facility] continue same dose of Lasix Jul, Hypertensive [...] (ICD-10 - E78.2) Follow-up with Dr. Edwards. [employer] Other 05-16-2022 Evaluation note* Encounter Date Diagnosis Assessment Notes Treatment Notes Treatment Clinical Notes June, Pre-op testing (ICD-10 - Z01.818) [employer] Other 05-12-2022 Evaluation note* Encounter Date Diagnosis [...] scheduled for her in the near future. [employer] Other 04-06-2022 Evaluation note* Encounter Date Diagnosis [...] (ICD-10 - E78.2) Follow-up with Dr. Edwards. [employer] Other [id number]#1.00[facility]01-12-2022 [id number] 02-20-[address] ROME POST [...] or concerns, please call the office at [phone] -Follow up as scheduledMer[facility] [id number] [facility] 2SOUT Clinical Discharge Summary PERSON INFORMATION Name CINTHYA WILSON Age 75 Years 1945 Sex FEMALE Language Romanian PCP LILY ALDRICH Marital Status Med Service Med/Surg Acct# Arrival 02/19/2021 06:01:00 Visit Reason SURGERY - RIGHT REVERSE TOTAL SHOULDER - ARTHREX Acuity LOS 000 28:08 Address: [address] [place] [address] Comment: PROVIDER INFORMATION VITALS INFORMATION Vital Sign [...] range between ( 74 and 118 ) [facility] Lab Order 02/20/2021 8:32 AM Tube Collected: [...] EDUCATION INFORMATION Instructions: Garo- Post Op Shoulder (CHARLETTE) Follow up: With: Address: When: Carlo Pedersen[address], [address] [place] [address] Business (1) 02/27/2021 1:15 PM With: Address: When: LILY ALDRICH [facility], [address] [facility] [address] [place], [place] [id number] Business (1) DIAGNOSIS 1:Status post reverse total arthroplasty of right shoulder; 2:Osteoarthritis of right shoulder; 3:Stage 4 chronic kidney disease; 4:CHF (congestive heart failure); 5:COPD (chronic obstructive pulmonary disease); 6:GERD (gastroesophageal reflux disease); 7:Hypertension; 8:Diabetes Comment: PHYS [facility]01-10-2022 Note [id number]#1.00[facility]* Encounter Date Diagnosis Assessment [...] Hematuria (ICD-10 - R31.9) Patient presented to [facility] with hematuria. Cystoscopy and ureteroscopy showed possible mass that need to be followed up characterized. She was also having UTI that was treated with ceftriaxone. Currently she has no more hematuria. She will follow up with Dr. Mckinley as needed. 23 Nov, 2021 CHF (congestive hear t failure) (ICD-10 - [...] (ICD-10 - E78.2) Follow-up with Dr. Edwards. [employer] Other 08-13-2021 NoteHNO ID: [id number] Author: Yamileth Martin MD Service: ? Author Type: Physician Type: Progress Notes Filed: 10/01/2020 12:14 AM Note Text: VIRTUAL VISIT PROGRESS NOTE This is a virtual visit using Cellvine video visit. It required patient-provider interaction for the medical decision making as documented below. Persons Present: patient and patient's spouse/significant other Chief Complaint/Reason: Hematuria HPI: Cinthya Wilson is a 75 year old female who presents for post-op evaluation. She was evaluated at [facility] in the past, which prompted ureteroscopy. Ureteroscopy was unsuccessful due to intrarenal bleeding. Postoperatively she had hematuria that required cbi, she was transferred to [facility]. She is s/p cysto, left ureteral stent [...] biopsy on 09/18/20. Path (more content not included)...[facility]07-30-2021 NoteHNO ID: [id number] Author: Yamileth Martin MD Service: ? Author Type: Physician Type: Progress Notes Filed: 09/18/2020 1:15 AM Note Text: VIRTUAL VISIT PROGRESS NOTE This is a virtual visit using Cellvine video visit. It required patient-provider interaction for the medical decision making as documented below. 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 Patient had history of hematuria which was evaluated in [facility] before. She needsd blood transfusion. She has elevated creatinine. Scr 2.02 ng/mL Her non contrast CT is suboptimal but she underwent cystoscopy, left retrograde pyelogram, left ureteroscopy. Due to bleeding his doctor wasn't able to take biopsies. Postprocedure she was transferred to [facility] for observation. Data Reviewed: Most recent labs and imaging results. Labs Creatinine Date Value Ref Range Status 09/03/2020 2.02 (H) 0.58 - 0.96 mg/dL Final 09/02/2020 2.38 (H) 0.58 - 0.96 mg/dL Final 09/01/2020 3.07 (H) 0.58 - 0.96 mg/dL Final 03/22/2015 1.57 (H) 0.70 - 1.40 mg/dL Final Imaging Uploaded in [facility] HISTORY REVIEWED (electronic chart updated): PMH: diabetes, [...] the date of the service which included [id number] patient care and completing clinical documentation Scribe Attestation: By signing my name below, I, Nga Talbert, attest that this documentation has been prepared under the direction and in the presence of Dr. Yamileth Martin MD. Electronically signed: Andrei Thompson, September 08, 2020 2:06 PM I, Yamileth Martin MD, personally performed the services described in this documentation. All medical record entries made by the andrei were at my (more content not included)...[facility]07-25-2021 NoteHNO ID: [id number] Author: Teofilo Hess MD Service: Urology Author Type: Physician Type: Progress Notes Filed: 09/03/2020 10:29 AM Note Text: [facility] UROLOGY PROGRESS NOTE Name: Cinthya Wilson After Hours Main [place] Urology Service Pager: [phone] ASSESSMENT AND PLAN Cinthya Wilson is a 75 year old female with history of HTN, DM2, stage III CKD, CAD s/p 1 stent in 2010, and polyarticular joint pain who presented to [facility] for evaluation of hematuria, she underwent [...] . Fredo De Jesus MD Urology Resident [facility] [place] Pager [phone], After Hours and Weekends Urology Service Pager [phone] SUBJECTIVE -Doing well, has ride for today, [...] 0659 09/03/20 07 - 09/04/20 0659 Shift 3217-1932 2911-7160 8331-0614 24 Hour Total 7777-7758 3922-9905 1949-6822 24 Hour Total INTAKE PO 370 370 PO 370 370 IV 150 350 500 Volume (mL) (NaCl 0.9% iv infusion) 150 350 500 Irrigants 300 300 Irrigant/Flush Amount In ([REMOVED] Indwelling Urinary Catheter 08/31/20 Assessment [place]son 09/02/20 1043) 300 300 Shift Total 670 775 587 3523 OUTPUT Urine 2957 081 3771 3375 Void (ml) 795 732 6606 2375 Urine Not Saved. 2 x 3 x 5 x Output ([REMOVED] Indwelling Urinary Catheter 08/31/20 Assessment [place]son 09/02/20 1043) 1000 1000 # of BMs Number of BMs 1 x 1 x 2 x Shift Total 3208 590 4421 3375 Weight (kg) Physical Exam General: Well-appearing, [...] and patient agrees with plan. Teofilo Hess, [facility]07-24-2021 NoteHNO ID: [id number] Author: Chetan Rogers MD Service: Urology Author Type: Fellow Type: Progress Notes Filed: 09/02/2020 10:01 AM Note Text: [facility] UROLOGY PROGRESS NOTE Name: Cinthya Wilson After Hours [facility] Urology Service Pager: [phone] ASSESSMENT AND PLAN Cinthya Wilson is a 75 year old female with history of HTN, DM2, stage III CKD, CAD s/p 1 stent in 2010, and polyarticular joint pain who presented to [facility] for evaluation of hematuria, she underwent [...] . Fredo De Jesus MD Urology Resident [facility] [place] Pager [phone], After Hours and Weekends Urology Service Pager [phone] SUBJECTIVE -CBI was off, no fevers/chills overnight, no n/v, has not ambulated yet, had a transient episode of dyspnea but was saturating well on RA and will walk today OBJECTIVE: Vital Signs 09/02/20 0626 09/02/20 0629 09/02/20 0821 09/02/20 0921 BP: 191/75 195/80 174/65 172/68 Pulse: 85 81 Resp: 17 Temp: 36.9 ?C (98.4 ?F) TempSrc: Oral SpO2: 95% 95% Date 09/01/20699 - 09/02/20 0659 09/02/20 07 - 09/03/20 0659 Shift 8960-6104 6627-8259 2517-5109 24 Hour Total 1300-4677 0137-4351 0881-9927 24 Hour Total INTAKE PO 90 90 120 120 PO 90 90 120 120 IV 600 100 700 Volume (mL) (NaCl 0.9% iv infusion) 600 100 700 Irrigants 6500 3000 6000 13073 Irrigant/Flush Amount In ( Indwelling Urinary Catheter 08/31/20 Assessment Hobson) 6500 3000 6000 31935 Shift Total 7190 3100 6000 91387 120 120 OUTPUT Urine 8700 3750 8000 70731 Urine Not Saved. 1 x 1 x Output ( Indwelling Urinary Catheter 08/31/20 Assessment Hobson) 8700 3750 8000 04980 Shift Total 8700 3750 8000 80988 Weight (kg) Physical Exam General: Well-appearing, no [...] [place] [phone].[facility]07-24-2021 NoteHNO ID: [id number] Author: Interface Note Service: ? Author Type: ? Type: Progress Notes Filed: 09/02/2020 2:45 AM Note Text: Epic Scheduled Downtime: 09/02/2020 1:01:00 AM to 09/02/2020 2:33:00 [facility]07-23-2021 NoteHNO ID: [id number] Author: Jessica Escudero RN Service: Care Management Author Type: Registered Nurse Type: Care Mgt Initial Assessment Filed: 09/01/2020 3:05 PM Note Text: CARE MANAGEMENT PROGRESS NOTE SERVICE DATE: 09/01/2020 SERVICE TIME: 3:01 PM LOS: 0 days [place] of Choice Given: No Reason Not Given: No placements necessary Caregiver is ready, willing and able to meet the patient's needs as recommended by the inter-professional team:: No Caregiver needed Does the patient have an acute stroke diagnosis, or has the patient had a stroke during this admission?: No Needs Prior to Discharge: To Be Determined Current Advance Directive: Health Care Power of Care Analyst In Chart: No Social Media Marketing Specialist Attempted to Assist with AD Completion: Yes Action: Education Provided D/C TBD. POC: Continuous Bladder Irrigation. Will follow for d/c planning needs. SIGNATURE: Jessica Escudero RN PATIENT NAME: Cinthya Wilson DATE: September 01, 2020 TIME: 3:00 PM PAGER/CONTACT #: [phone] NoteHNO ID: [id number] Author: Mick Gallardo MD Service: Urology Author [...] withdraw 60cc). - Notify the Urology resident, [id number]. - Re-catheterization should not be attempted by [...] and opium suppositories, levsin, etc). Mick Gallardo, [facility] note Author Narinder Toussaint [facility] February 23, 2022 2:20pm Note Date/Time February 23, 2022 2 :20pm [facility] [address] [place] [address] Nephrology Consult Note Signed Patient: Cinthya Wilson MR#: [id number] : 1945 Acct:[id number] Age/Sex: 76 / F Adm Date: 3 Loc: Room: [address] [place] [address] Type: ADM IN Attending Dr: Jamal Schaefer [...] 81 Mg Tablet.) 81 mg PO DAILY [facility] Stop: 02/23/23 08:59 Last Admin: 02/23/22 08:25 Dose: 81 mg Atorvastatin Calcium (Atorvastatin 40 Mg Tablet) 40 mg PO QPM [facility] Stop: 02/23/23 20:59 Carvedilol (Carvedilol 12.5 Mg Tablet) 12.5 mg PO BID [facility] Stop: 02/23/23 08:59 Last Admin: 02/23/22 08:25 Dose: 12.5 mg Citalopram Hydrobromide (Citalopram 40 Mg Tablet) 40 mg PO DAILY [facility] Stop: 02/23/23 08:59 Last Admin: 02/23/22 08:25 Dose: 40 mg Docusate Sodium (Docusate 100 Mg Capsule) 100 mg PO BID [facility] Stop: 02/23/23 08:59 Last Admin: 02/23/22 08:25 Dose: 100 mg Furosemide (Furosemide 100 Mg/10 Ml Vial) 80 mg IV-PUSH BID@0800,1600 [facility] Stop: 02/22/23 21:24 Last Admin: 02/23/22 08:25 Dose: 80 mg Heparin Sodium (Porcine) (Heparin 5,000 Unit/Ml Vial) 5,000 unit SUBCUT Q8HR [facility] Stop: 02/22/23 21:59 Last Admin: 02/23/22 13:36 Dose: Not Given Heparin Sodium (Porcine) (Heparin 10,000 Unit/10 Ml Vial) 2,000 unit IV PRN PRN PRN Reason: Dialysis Stop: 02/23/23 10:58 Hydralazine HCl (Hydralazine 50 Mg Tablet) 50 mg PO TID [facility] Stop: 02/22/23 21:59 Last Admin: 02/23/22 13:36 Dose: Not Given Ceftriaxone Sodium (Rocephin) 1 gm in 50 mls @ 100 mls/hr IV Q24H [facility] Sodium Chloride (0.9% Sodium Chloride 1,000 Ml) 1,000 mls @ 0 mls/hr MISCELLANE.Q0M PRN PRN Reason: Dialysis Stop: 02/23/23 10:58 Insulin Aspart (Insulin Aspart 300 Units/3 Ml Insuln.Pen) 0 units SUBCUT TID.WM.HS [facility]; Protocol Stop: 02/22/23 21:59 Last Admin: 02/23/22 13:35 Dose: Not Given Isosorbide Mononitrate (Isosorbide Mononitrate 24hr Er 60 Mg Tab.Er.24h) 60 mg PO QAM [facility] Stop: 02/23/23 08:59 Last Admin: 02/23/22 08:25 Dose: 60 mg Melatonin (Melatonin 5 Mg Tablet) 5 mg PO QHS PRN PRN Reason: Insomnia Stop: 02/22/23 21:16 Nystatin (Nystatin 100,000 Unit/Gram Powder 15 Gm Bottle) 1 applic TOPICAL BID PRN PRN Reason: Skin Irritation Omeprazole (Omeprazole 20 Mg Capsule.Dr) 40 mg PO DAILY [facility] Stop: 02/23/23 08:59 Last Admin: 02/23/22 08:25 Dose: 40 mg Promethazine HCl (Promethazine 25 Mg/Ml Vial) 12.5 mg IV-PUSH Q6H PRN PRN Reason: Nausea And Vomiting Stop: 02/22/23 21:16 Sodium Bicarbonate (Sodium Bicarbonate 650 Mg Tablet) 1,300 mg PO TID [facility] Stop: 02/23/23 08:59 Last Admin: 02/23/22 13:36 [...] Appearance Clear Urine pH 5.0 Ur Specific [place] 1.015 Urine Protein 100 H Urine Glucose [...] Dianna Pedro M.D.02/22/2022 8:01 PM Dictation Location: [place] [address] 02/22/22 18:50 IMPRESSION: ATROPHY AND CHRONIC MICROVASCULAR CHANGES. NO ACUTE INTRACRANIAL ABNORMALITY. Impression dictated by: Dianna Pedro M.D.02/22/2022 8:06 PM Dictation Location: [place] [address] Any impression(s) listed above is documentation that [...] stay. Documented By: Narinder Toussaint MD 02/23/22 9539 Signed By: <Electronically signed by MD Narinder Toussaint> 02/23/22 4300 [facility] Work Phone: Consult note Author Narinder Toussaint [facility] October 30, 2022 2:47pm Note Date/Time October 30, 2022 2:47pm [facility] [address] [place] [address] Nephrology Consult Note Signed Patient: Cinthya Wilson MR#: [id number] : 1945 Acct:[id number] Age/Sex: 77 / F Adm Date: 3 Loc: Room: [address] [place] [address] Type: ADM INOo Attending Dr: Carlton Mtz DO Copies to: MD Narinder Bourgeois II, MD Kristopher L Lindbloom, ~ Providers Consult Date: 10/30/22 Requesting Provider: Carlton [...] recurrent CHF. Patient currently gets dialysis at [facility] on MWF schedule. She is [...] negative unless noted below or in HPI [facility] Medical History (Updated 10/30/22 @ 00:13 by [...] 3 Ml Ampul.Neb) 1 ml INHALATION QID [facility] Stop: 10/30/23 08:59 Last Admin: 10/30/22 14:02 Dose: 1 ml Aspirin (Aspirin 81 Mg Tablet.) 81 mg PO DAILY [facility] Stop: 10/30/23 08:59 Last Admin: 10/30/22 08:47 Dose: 81 mg Atorvastatin Calcium (Atorvastatin 40 Mg Tablet) 40 mg PO QPM [facility] Stop: 10/30/23 20:59 Calcium Acetate (Calcium Acetate 667 Mg Capsule) 667 mg PO TID.WITH.MEALS [facility] Stop: 10/30/23 07:59 Last Admin: 10/30/22 13:00 Dose: Not Given Darbepoetin Theodore (Darbepoetin Theodore In Polysorbat 60 Mcg/Ml Vial) 60 mcg IV-PUSHWe@1015 [facility] Stop: 10/30/23 10:14 Last Admin: 10/30/22 10:16 Dose: 60 mcg Dextrose (Dextrose 50% In Water 25 Gm/50 Ml Syringe) 0 gm IV-PUSH PRN PRN PRN Reason: Hypoglycemia Stop: 10/29/23 23:55 Docusate Sodium (Docusate 100 Mg Capsule) 100 mg PO BID [facility] Stop: 10/30/23 08:59 Last Admin: 10/30/22 08:47 Dose: 100 mg Glucose (Dextrose 40% Gel 15 Gm Tube) 0 gm PO PRN PRN PRN Reason: Hypoglycemia Stop: 10/29/23 23:55 Glucose (Dextrose 40% Gel 15 Gm Tube) 0.6 gm PO PRN PRN PRN Reason: Hypoglycemia Stop: 10/30/23 04:23 Heparin Sodium (Porcine) (Heparin 5,000 Unit/Ml Vial) 5,000 unit SUBCUT Q12HR [facility] Stop: 10/30/23 08:59 Last Admin: 10/30/22 08:47 Dose: 5,000 unit Amiodarone HCl 450 mg/ (Dextrose) 250 mls @ 33.333 mls/hr IV .Q7H30M [facility]; Protocol Stop: 10/31/22 03:59 Last Admin: 10/30/22 13:25 Dose: Not Given Sodium Chloride (0.9% Sodium Chloride 1,000 Ml) 1,000 mls @ 0 mls/hr MISCELLANE.Q0M PRN PRN Reason: Dialysis Stop: 10/30/23 09:03 Last Infusion: 10/30/22 10:17 Dose: Infused Insulin Aspart (Insulin Aspart 300 Units/3 Ml Insuln.Pen) 0 units SUBCUT TID.WM.[facility]; Protocol Stop: 10/30/23 07:59 Last Admin: 10/30/22 14:21 Dose: Not Given Isosorbide Mononitrate (Isosorbide Mononitrate 24hr Er 60 Mg Tab.Er.24h) 60 mg PO DAILY [facility] Stop: 10/30/23 08:59 Midodrine (Midodrine 5 Mg [...] 40 Mg Tablet.Dr) 40 mg PO DAILY [facility] Stop: 10/30/23 08:59 Last Admin: 10/30/22 08:47 Dose: 40 mg Sennosides (Sennosides 8.6 Mg Tablet) 1 tab PO BID [facility] Stop: 10/30/23 08:59 Last Admin: 10/30/22 08:47 Dose: 1 tab Sodium Chloride (Sodium Chloride 0.9 % 10 Ml Syringe) 0 ml IV-PUSH PRN PRN PRN Reason: Flush Stop: 10/29/23 20:01 Last Admin: 10/30/22 10:15 Dose: 10 ml Sodium Chloride (Sodium Chloride 0.9 % 10 Ml Syringe) 0 ml IV-PUSH QSHIFT [facility] Stop: 10/30/23 05:59 Last Admin: 10/30/22 13:26 [...] Jossie Díaz M.D.10/30/2022 8:01 AM Dictation Location: [place] [address] 10/29/22 20:42 IMPRESSION: No acute fracture. Similar degenerative and postoperative change. Impression dictated by: David Archer M.D.10/29/2022 9:30 PM Dictation Location: [place] [address] Chest X-Ray 10/29/22 20:42 IMPRESSION: Atherosclerotic changes are present in the thoracic aorta. There are small bilateral pleural effusions with hazy airspace opacities showing slight intervalimprovement when compared to the prior exam. Impression dictated by: Jossie Díaz M.D.10/30/2022 8:00 AM Dictation Location: [place] [address] 10/29/22 20:42 IMPRESSION: No acute intracranial findings. Impression dictated by: David Archer M.D.10/29/2022 9:25 PM Dictation Location: [place] [address] Any impression(s) listed above is documentation that [...] volume overload. [facility] (2) Fall [...] <Electronically signed by MD Narinder Toussaint> 10/30/22 1445 [facility] Work Phone: Consult note Author Edie Michel [facility] October 30, 2022 4:25pm Note Date/Time October 30, 2022 4:03pm [facility] [address] [place] [address] Cardiology Consult Note Signed Patient: Cinthya Wilson MR#: [id number] : 1945 Acct:[id number] Age/Sex: 77 / F Adm Date: 3 Loc: Room: [address] [place] [address] Type: ADM INOo Attending Dr: Carlton Mtz DO Copies to: MD Carlton Bourgeois II, DO Edie Michel MD~ Cardiology HPI History of Present Illness Consult Date: 10/30/22 Reason for Consult: Nonsustained VT HPI: Ms. Wilson is a 77 year old female with past medical history significant for CADstatus post PCI x1 about 10 years ago in [place], ESRD on HD, hypertension, hyperlipidemia, CHF, COPD [...] she follows up with Dr. Lutz in [place] and was last seen a few weeks ago where her cardiac medications were decreased due to hypotension. She has since been started on midodrine. She reports having an echo in the last year but is unsure or her EF. Review of Systems Review of Systems All other systems reviewed & are negative unless noted below or in HPI [facility] Medical History (Updated 10/30/22 @ 16:17 by [...] Lymph # (Auto) 1.0 1.1 (1.00-4.8) x10E3/uL Gilchrist # (Auto) 0.9 H 1.1 H (0.0-0.8) [...] ml @ 600 mls/hr IV BOLUS ONE Rx#:[id number] Amiodarone 450 mg In Dextrose 5 60 / 60 % in Water [place] 241 ml @ 1 MG /MIN 33.333 mls/hr IV .Q7H30M [facility] Rx#:[id number] Magnesium Sulf 2Gm-*Swfi* 2 gm 50 / 50 In 50 ml @ 25 mls/hr IV ONCE ONE Rx#:[id number] Sodium Chloride 0.9% 1,000 ml 250 / 250 250 ml @ 999 mls/hr IV .Q16M ONE Rx#:[id number] Sodium Chloride 0.9% 1,000 ml 1 500 / 500 ,000 ml @ As Directed MISCELLANE .Q0M PRN Rx#: [id number] Oral 200 / 200 Dialysis Intake 300 [...] post PCIx1 about 10 years ago in [place], ESRD on HD, hypertension, hyperlipidemia, CHF, COPD [...] Code(s): I25.10 - Atherosclerotic heart disease of alga[place]q coronary artery without angina pectoris (3) Systolic [...] <Electronically signed by Edie Michel MD> 10/30/22 4221 [facility] Work Phone: Consult note Author Narinder Toussaint [facility] December 30, 2022 12:46pm Note Date/Time December 30, 2022 12:46pm [facility] [address] [place] [address] Nephrology Consult Note Signed Patient: Cinthya Wilson MR#: [id number] : 1945 Acct:[id number] Age/Sex: 77 / F Adm Date: 3 Loc: Room: 4F0711-6 Type: ADM IN Attending Dr: Tatiana Loya MD Copies to: MD Lily Duran II, MD Essam B Elashi, MD~ Providers Consult Date: 12/30/22 Requesting Provider: Tatiana Loya MD Primary Care Provider: Lily Aldrich II, MD [facility] Reason for Consult: Management of ESRD and dialysis during hospital stay History of Present Illness: Ms. 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 Patient currently gets dialysis at [place] dialysis unit on MWF schedule. Patient had [...] and no additional complaints, except as documented [facility] Medical History Anemia Anxiety Anxiety and depression [...] 60 Mcg/Ml Vial) 80 mcg IV- PUSHWE [facility] Stop: 01/01/24 08:28 Dextrose (Dextrose 50% In Water 25 Gm/50 Ml Syringe) 0 gm IV-PUSH PRN PRN PRN Reason: Hypoglycemia Stop: 12/30/23 03:22 Diclofenac Sodium (Diclofenac Sodium 1% Gel 100 Gm Tube) 4 gm TOPICAL QID YESSENIA Stop: 12/30/23 08:59 Last Admin: 12/30/22 08:20 Dose: 4 gm Docusate Sodium (Docusate 100 Mg Capsule) 100 mg PO BID [facility] Stop: 12/30/23 08:59 Last Admin: 12/30/22 08:20 Dose: 100 mg Ferric Sodium Gluconate Complex (Sodium Ferric Gluconat/Sucrose 62.5 Mg/5 Ml Vial) 125 mg IV-PUSH Mo@0900 [facility] Stop: 12/30/23 08:59 Last Admin: 12/30/22 10:03 Dose: 125 mg Furosemide (Furosemide 20 Mg Tablet) 60 mg PO BID@0800,1700 [facility] Stop: 12/30/23 08:59 Last Admin: 12/30/22 08:20 [...] Units/3 Ml Insuln.Pen) 0 units SUBCUT TID.WM.HS [facility]; Protocol Stop: 12/30/23 07:59 Last Admin: 12/30/22 11:35 Dose: 2 units Midodrine (Midodrine 5 Mg Tablet) 5 mg PO TID.7A.12P.5P PRN PRN Reason: Hypotension Stop: 12/30/23 03:21 Multivitamins (Multivitamin 1 Tab Tablet) 1 tab PO DAILY [facility] Stop: 12/30/23 08:59 Last Admin: 12/30/22 08:20 Dose: 1 tab Oxycodone/Acetaminophen (Oxycodone/Acetaminophen 5-325 Mg Tablet) 1 tab PO [id number] PRN Reason: Pain Pantoprazole Sodium (Pantoprazole 40 Mg Tablet.Dr) 40 mg PO DAILY [facility] Stop: 12/30/23 08:59 Last Admin: 12/30/22 08:20 Dose: 40 mg Pramipexole Dihydrochloride (Pramipexole 0.5 Mg Tablet) 0.5 mg PO QHS [facility] Stop: 12/30/23 21:59 Saliva Substitute (Saliva Stimulant Agents Comb.3 44.3 Ml Sw[place]) 0 ml MUCOUS MEM PRN PRN PRN Reason: Dry Mouth Stop: 12/30/23 02:58 Sennosides (Sennosides 8.6 Mg Tablet) 2 tab PO QHS [facility] Stop: 12/30/23 21:59 Sodium Chloride (Sodium Chloride 0.9 % 10 Ml Syringe) 0 ml IV-PUSH PRN PRN PRN Reason: Flush Stop: 12/29/23 22:02 Last Admin: 12/30/22 10:03 Dose: 10 ml Sodium Chloride (Sodium Chloride 0.9 % 10 Ml Syringe) 0 ml IV-PUSH QSHIFT [facility] Stop: 12/30/23 05:59 Last Admin: 12/30/22 06:29 [...] TO THE 12/13/2022 STUDY. Impression dictated by: Eric Mendoza Jr.OLucia12/30/2022 9:27 AM Dictation Location: [facility]WorkFlowy-12 Abdomen X-Ray 12/30/22 02:49 IMPRESSION: MODERATE STOOL BURDEN IS SEEN INVOLVING THE LEFT COLON WITH GASEOUS DISTENTION OF PRESUMED RIGHT-SIDED COLONIC LOOPS. FINDINGS MAY RELATE TO CONSTIPATION. IF UNDERLYING OBSTRUCTION IS OF CLINICAL CONCERN, FURTHER EVALUATION WITH CT IS RECOMMENDED. Impression dictated by: Quintin Matamoros Jr., D.O.12/30/2022 9:28 AM Dictation Location: [facility]PC-12 Liver Ultrasound 12/30/22 03:00 IMPRESSION: NO ACUTE PROCESS. . Impression dictated by: Quintin Matamoros Jr., D.O.12/30/2022 10:31 AM Dictation Location: [place] [address] Any impression(s) listed above is documentation that [...] signed by MD Narinder Toussaint> 12/30/22 1246 [facility] Work Phone: Consult note Author Edie Michel [facility] December 30, 2022 8:49pm Note Date/Time December 30, 2022 8:37pm [facility] [address] [place] [address] Cardiology Consult Note Signed Patient: Cinthya Wilson MR#: [id number] : 1945 Acct:[id number] Age/Sex: 77 / F Adm Date: 3 Loc: Room: [address] [place] [address] Type: ADM IN Attending Dr: Tatiana Loya MD Copies to: MD Lily Duran II, MD Edie Michel MD~ Cardiology HPI History of Present Illness Consult Date: 12/30/22 Reason for Consult: Bradycardia and history of VT HPI: Ms. Wilson is a 77 year old female with PMH significant for CAD status post PCI x1 about 10 years ago in [place], ESRD on HD, hypertension, hyperlipidemia, CHF, COPD [...] negative unless noted below or in HPI [facility] Medical History Anemia Anxiety Anxiety and depression [...] Lymph # (Auto) 1.2 1.1 (1.00-4.8) x10E3/uL [place] # (Auto) 1.3 H 1.2 H (0.0-0.8) [...] @ As Directed MISCELLANE .Q0M PRN Rx#: [id number] Oral 360 / 360 Output: Urine 0 [...] PCI x1 about 10 years ago in [place], ESRD on HD, hypertension, hyperlipidemia, CHF, COPD [...] follow. Documented By: Edie Michel MD 12/30/22 3809 Signed By: <Electronically signed by Edie Michel MD> 12/30/222048 [facility] Work Phone: Discharge summary Author Carlton Mtz [facility] October 31, 2022 7:44pm Note Date/Time October 31, 2022 3:04pm [facility] [address] [place] [address] Discharge Summary Signed Patient: Cinthya Wilson MR#: [id number] : 1945 Acct:[id number] Age/Sex: 77 / F Adm Date: 3 Loc: Room: [address] [place] [address]: Carlton Mtz DO Copies to: [...] 1 vessel about 10 years ago in [place]. Acute on chronic combined systolic and diastolic [...] daily. 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 Continue Hemodialysis as scheduled. Continue to use [...] 1504 Signed By: <Electronically signed by Carlton Mtz, > 10/31/22 1944 [facility] Work Phone: Evaluation + Plan note No data available for this section [facility] Future App[facility]ments Appointment Date:03/04/2023 01:00:00 PM Scheduled Provider:Julius Elizondo DPM [facility] Appointment Type:WC [facility] Future Appointments Appointment Date:03/18/2023 01:30:00 PM Scheduled Provider:Julius Elizondo DPM Location[facility] Appointment Type:WC [facility] assessment information available [facility] Work Phone: evaluation note* Diagnosis Onset Date Resolution Status Acute [...] Right shoulder pain acute Sleep apnea acute [facility] Work Phone: evalundkct note* Diagnosis Onset Date Resolution Status Acute hypoxemic respiratory failure acute DAVID (acute kidney injury) ac [place] Anemia acute COPD (chronic obstructive pulmonary disease) acute Diabetes acute Elevated troponin acute HTN (hypertension) acute Systolic and diastolic CHF, acute on chronic acute UTI (urinary tract infection) acute [facility] Work Phone: evaluation note* Diagnosis Onset Date Resolution Status Acute hypoxemic respiratory failure acute DAVID (acute kidney injury) ac [place] Anemia acute COPD (chronic obstructive pulmonary disease) acute Diabetes acute Elevated troponin acute ESRD (end stage renal disease) acute HTN (hypertension) acute Primary hypertension acute Systolic and diastolic CHF, acute on chronic acute UTI (urinary tract infection) acute [facility] Work Phone: evaluation noteNo InformationNort [place] [employer] Other Evaluation note* Diagnosis Onset Date Resolution Status Acute hypoxemic respiratory failure acute DAVID (acute kidney injury) ac [place] Anemia acute COPD (chronic obstructive pulmonary disease) acute Diabetes acute Elevated troponin acute ESRD (end stage renal disease) acute HTN (hypertension) acute Primary hypertension acute Systolic and diastolic CHF, acute on chronic acute UTI (urinary tract infection) acute Anemia acute Bright red rectal bleeding a cute Diabetes acute ESRD (end stage renal disease) acute Systolic and diastolic CHF, acute on chronic acute [facility] Work Phone: Evaluation note* Diagnosis Onset Date Resolution Status CAD (coronary artery disease) acute COPD (chronic obstructive pulmonary disease) acute Diabetes acute ESRD (end stage renal disease) acute ESRD on dialysis acute Fall acute Fall at home acute HTN (hypertension) acute Hyponatremia acute Left shoulder pain acute Minor head injury acute Osteoarthritis of left shoulder acute Recurrent right pleural effusion acute [facility] Work Phone: Evaluation note* Diagnosis Onset Date [...] acute Head injury acute Syncopal episodes acute [facility] Work Phone: Evaluation note* Diagnosis Onset Date [...] wit h diabetic chronic kidney disease acute [facility] Work Phone: Evaluation note* Diagnosis Onset Date [...] wit h diabetic chronic kidney disease acute [facility] Work Phone: Evaluation note* Diagnosis Onset [...] diabetic chronic kidney disease acute Weakness acute [facility] Work Phone: Evaluation note* Diagnosis Onset Date [...] diabetic chronic kidney disease acute Weakness acute [facility] Work Phone: Evaluation note* Diagnosis Onset Date [...] wit h diabetic chronic kidney disease acute [facility] Work Phone: Evaluation note* Diagnosis Onset [...] kidney disease acute Ventricular tachycardia, sustained acute [facility] Work Phone: Evaluation note* Diagnosis Onset Date Resolution Status Anemia acute Chronic pleural effusion acu te COPD (chronic obstructive pulmonary disease) acute Diabetes acute Fever acute Pain in joints acute Recurrent right pleural effusion acute Swollen tongue acute Symptomatic bradycardia acut e Weakness acute ESRD on dialysis resolved Generalized weakness resolve d COPD (chronic obstructive pulmonary disease) acute Syncope resolved ESRD on dialysis resolved Generalized weakness resolve d Hypokalemia resolved Hypomagnesemia resolved Hypotension resolved Seizure-like activity resolv ed Ventricular tachycardia, sustained resolved Acute hyperkalemia acute Chronic hypoxemic respiratory failure acute COPD (chronic obstructive pulmonary disease) acute End-stage renal disease (ESRD) acute Fluid overload acute Heart failure acute Missed dialysis acute Neck pain acute Visual changes acute [facility] Work Phone: Evaluation note* Diagnosis Onset Date Resolution Status COPD (chronic obstructive pulmonary disease) acute Syncope resolved ESRD on dialysis resolved Generalized weakness resolve d Hypokalemia resolved Hypomagnesemia resolved Hypotension resolved Seizure-like activity resolv ed Ventricular tachycardia, sustained resolved Acute hyperkalemia acute Anemia acute Carotid stenosis, bilateral acute Chronic hypoxemic respiratory failure acute COPD (chronic obstructive pulmonary disease) acute Diplopia acute End-stage renal disease (ESRD) acute Fluid overload acute Heart failure acute Missed dialysis acute Neck pain acute Visual changes acute [facility] Work Phone: History and physical note Author Gary Almaguer [facility] February 22, 2022 11:26pm Note Date/Time February 22, 2022 9 :35pm [facility] [address] [place] [address] Hospitalist H&P Signed Patient: Cinthya Wilson MR#: [id number] : 1945 Acct:[id number] Age/Sex: 76 / F Adm Date: 3 Loc: 4N Room: [id number] Type: ADM IN Attending Dr: Gary Almaguer MD Copies to: MD Gary Bourgeois II, MD Malika Arreaga, HARDNESS TESTER~ HPI DATE OF EXAMINATION: 02/22/22 CHIEF COMPLAINT: [...] states that she 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 CMP with a sodium of 132, [id number], gap 18.6, BUN 126, creatinine 5.19, glucose [...] % (Auto) 12.3 % (.) 02/22/22 19: Gilchrist % (Auto) 11.5 % (.) 02/22/22 19: Eos % (Auto) 3.7 % (.) 02/22/22 19: Baso % (Auto) 0.7 % (.) 02/22/22 19: Nucleat RBC Rel Count 0.1 /100 WBC (0-0.5) 02/22/22 19: Neut # (Auto) 4.9 x10E3/uL (1.8-7.7) 02/22/22 19: Lymph # (Auto) 0.8 x10E3/uL (1.00-4.8) L 02/22/22 19: Gilchrist # (Auto) 0.8 x10E3/uL (0.0-0.8) 02/22/22 19: [...] L 02/22/22 19: Potassium 5.0 mmol/L (3.5-5.1) 02/22/22 19: Chloride 100 mmol/L (95-114) 02/22/22 19: Carbon Dioxide 18.4 mmol/L (22.0-30.0) L 02/22/22 19: Anion Gap 18.6 mEq/L (6.0-15.0) H 02/22/22 19:26 BUN 126 mg/dL (9-23) H 02/22/22 19: Creatinine 5.19 mg/dL (0.44-1.03) H 02/22/22 19: Est GFR ( Amer) 10 mL/Min 02/22/22: Est GFR (Non-Af Amer) 8 mL/Min 02/22/22 19: Glucose 142 mg/dL (70-100) H 02/22/22 19: Calcium 9.4 mg/dL (8.2-10.2) 02/22/22: Total Creatine Kinase 54 U/L (22-269) 02/22/22: CK-MB (CK-2) 4.5 ng/mL (0.6-6.3) 02/22/22: CK-MB (CK-2) Rel Index 8.3 % (0.00-2.50) H 02/22/22: Troponin I High Sens 82 pg/mL (0-15) H* 02/22/22: B-Natriuretic Peptide 3549.0 pg/mL (5-100) H 02/22/22 19: Urine Color Yellow (Yellow) 02/22/22 19: Urine Appearance Clear (Clear) 02/22/22 19: Urine pH 5.0 (5.0-9.0) 02/22/22 19: Ur Specific [place] 1.015 (1.001-1.030) 02/22/22 19:08 Urine Protein 100 mg/dL (Negative) H 02/22/22 19: Urine Glucose (UA) Normal mg/dL (Normal) 02/22/22 19:08 Urine Ketones Negative (Negative) 02/22/22 19:08 Urine Occult Blood Negative (Negative) 02/22/22 19: Urine Nitrite Negative (Negative) 02/22/22 19:08 Urine Bilirubin Negative (Negative) 02/22/22 19:08 Urine Urobilinogen Normal mg/dL (Normal) 02/22/22 19:08 Ur Leukocyte Esterase 2+ (Negative) H 02/22/22 19:08 Urine RBC 0-1 /HPF (0-4) 02/22/22 19:08 Urine WBC 10-19 /HPF (0-4) H 02/22/22 19:08 Ur Squamous Epith Cells 3-4 /HPF (0-2) H 01/13/23 19:08 Urine Bacteria None seen (None Seen) [...] Strange MD Documented By: Malika Arreaga APRN 02/22/22 4347 Signed By: <Electronically signed by NELI Arreaga> 02/22/22 2302 <Electronically signed by Gary Almaguer MD> 02/22/22 7135 [facility] Work Phone: History and physical note Author Gary Almaguer [facility] October 30, 2022 12:06am Note Date/Time October 29, 2022 11:31pm [facility] [address] [place] [address] Hospitalist H&P Signed Patient: Cinthya Wilson MR#: [id number] : 1945 Acct:[id number] Age/Sex: 77 / F Adm Date: 3 Loc: 3T Room: [address] [place] [address] Type: ADM INOo Attending Dr: Gary Almaguer MD Copies to: MD Gary Bourgeois II, MD Paula G Smith, HARDNESS TESTER~ HPI DATE OF EXAMINATION: 10/29/22 CHIEF COMPLAINT: [...] unless noted in the HPI or below. [facility] Medical History (Updated 10/29/22 @ 23:43 by [...] % (Auto) 14.3 % (.) 10/29/22 20:40 Gilchrist % (Auto) 13.3 % (.) 10/29/22 20:40 Eos % (Auto) 3.5 % (.) 10/29/22 20:40 Baso % (Auto) 0.5 % (.) 10/29/22 20:40 Nucleat RBC Rel Count 0.1 /100 WBC (0-0.5) 10/29/22 20:40 Neut # (Auto) 4.6 x10E3/uL (1.8-7.7) 10/29/22 20:40 Lymph # (Auto) 1.0 x10E3/uL (1.00-4.8) 10/29/22 20:40 Gilchrist # (Auto) 0.9 x10E3/uL (0.0-0.8) H 10/29/22 [...] (6.4-8.9) 10/29/22 20:40 Albumin 3.5 gm/dL (3.5-5.7) 09/19/23 20:40 Globulin 4.1 gm/dL 10/29/22 20:40 Albumin/Globulin [...] signed by Gary Almaguer MD> 10/30/22 0006 [facility] Work Phone: History and physical note Author Carlton Mtz [facility] December 30, 2022 3:22am Note Date/Time December 30, 2022 3:06am [facility] [address] [place] [address] Hospitalist H&P Signed Patient: Cinthya Wilson MR#: [id number] : 1945 Acct:[id number] Age/Sex: 77 / F Adm Date: 3 Loc: Room: [address] [place] [address] Type: ADM IN Attending Dr: Carlton Mtz [...] chronic use of hydrocodone product such as Fenton 10/325 up to Percocet 5/325 enough for [...] except as mentioned elsewhere in the documentation. [facility] Medical History Anemia Anxiety Anxiety and depression [...] % (Auto) 12.9 % (.) 12/29/22 22:20 Gilchrist % (Auto) 13.9 % (.) 12/29/22 22:20 Eos % (Auto) 1.0 % (.) 12/29/22 22:20 Baso % (Auto) 0.3 % (.) 12/29/22 22:20 Nucleat RBC Rel Count 0.0 /100 WBC (0-0.5) 12/29/22 22:20 Neut # (Auto) 6.9 x10E3/uL (1.8-7.7) 12/29/22 22:20 Lymph # (Auto) 1.2 x10E3/uL (1.00-4.8) 12/29/22 22:20 Gilchrist # (Auto) 1.3 x10E3/uL (0.0-0.8) H 12/29/22 [...] well as RSV I will check a [employer] nasal PCR for more viral pathogens. I [...] 0302 Signed By: <Electronically signed by Carlton Mzt DO> 12/30/22 0322 [facility] Work Phone: History general Narrative - [...] History scope with stent placement 08/29 20 Hospitalization History see above surgical histo ry Hospitalization History [place] for bleeding tr ansferred to [facility] 08/2020 [employer] Other History general Narrative - Reported* Type [...] History [place] for bleeding tr ansferred to [facility] 08/2020 [employer] Other Hisimxs general Narrative - Reported* Type Description Date [...] History [place] for bleeding tr ansferred to [facility] 08/2020 Hospitalization History CHRONIC KIDNEY DISEASE S TAGE 5, HYPONATREMIA 11/16/2021 [employer] Other history general Narrative - Reported* Type [...] see above surgical histo ry Hospitalization History [place] for bleeding tr ansferred to [facility] 08/2020 Hospitalization History CHRONIC KIDNEY DISEASE S TAGE 5, HYPONATREMIA 11/16/2021 [facility] [facility] Other Hospital Discharge instructions Additional Instructions SNF [...] ACHS -Care to be managed by SNF providers.[facility] Work Phone: Hospital Discharge instructionsAmbulatory Orders* [...] protection. - Fall precautions - high fall riskL[facility] Work Phone: Hospital Discharge instructions No data available for this section [facility] instructions[facility] Orders* Initiate Home Health [...] per chronic schedule - Fingerstick blood sugar [facility] Work Phone: Progress note Author Jamal Schaefer [facility] February 23, 2022 9:43am Note Date/Time February 23, 2022 9 :43am [facility] [address] [place] [address] Hospitalist Progress Note Signed Patient: Cinthya Wilson MR#: [id number] : 1945 Acct:[id number] Age/Sex: 76 / F Adm Date: 3 Loc: 4N Room: 9I1738-5 Type: ADM IN Attending Dr: Jamal Schaefer [...] Vial IV-PUSH 02/22/23 21:24 80 mg BID@0800,1600 [facility] Administration Heparin Sodium (Porcine) 5,000 unit 02/22/22 [...] Insuln.Pen SUBCUT 02/22/23 21:59 Not Given TID.WM.HS [facility] Protocol Isosorbide Mononitrate 60 mg 02/23/22 09:00 [...] signed by Jamal Schaefer MD> 02/23/22 0943 [facility] Work Phone: Progress note Author Geronimo Fofana [facility] February 27, 2022 2:29pm Note Date/Time February 27, 2022 2 :29pm [facility] [address] [place] [address] Nephrology Progress Note Signed Patient: Cinthya Wilson MR#: [id number] : 1945 Acct:[id number] Age/Sex: 76 / F Adm Date: 3 Loc: Room: [address] [place] [address] Type: ADM IN Attending Dr: Simone Godoy [...] 50 Mg Tablet) 50 mg PO TID [facility] Stop: 02/22/23 21:59 Last Admin: 02/27/22 09:00 [...] 300 Units/3 Ml Insuln.Pen) 0 units SUBCUT TID..[facility]; Protocol Stop: 02/22/23 21:59 Last Admin: 02/27/22 12:33 Dose: Not Given Melatonin (Melatonin 5 Mg Tablet) 5 mg PO QHS PRN PRN Reason: Insomnia Stop: 02/22/23 21:16 Nystatin (Nystatin 100,000 Unit/Gram Powder 15 Gm Bottle) 1 applic TOPICAL BID PRN PRN Reason: Skin Irritation Last Admin: 02/24/22 17:03 Dose: 1 applic Omeprazole (Omeprazole 20 Mg Capsule.Dr) 40 mg PO DAILY [facility] Stop: 02/23/23 08:59 Last Admin: 02/26/22 08:31 [...] YESSENIA Stop: 02/25/23 08:59 Last Admin: 02/26/22 08:33 [...] DAILY YESSENIA Stop: 02/25/23 08:59 Last Admin: 02/27/22 09:00 [...] Outpatient dialysis spot [facility] to discharge patient from nephrology standpoint after today hemodialysis Documented By: Geronimo Fofana MD 02/27/22 1421 Signed By: <Electronically signed by Geronimo Fofana MD> 02/27/22 1422 [facility] Work Phone: Progress note Author Carlton Mtz [facility] October 30, 2022 6:00pm Note Date/Time October 30, 2022 6:00pm [facility] [address] [place] [address] Hospitalist Progress Note Signed Patient: Cinthya Wilson MR#: [id number] : 1945 Acct:[id number] Age/Sex: 77 / F Adm Date: 3 Loc: Room: [address] [place] [address] Type: ADM INOo Attending Dr: Carlton Mtz [...] OARRS report. She most recently picked up Fenton 10 mg #120 ion51-ypf supply. She has been picking up Fenton consistently from the same provider but is [...] 50 Gm Tube TOPICAL 10/30/23 17:59 QID YESSENIA Docusate Sodium 100 mg 10/30/22 09:00 10/30/22 [...] Ml Insuln.Pen SUBCUT 10/30/23 07:59 Not Given TID.WM.[facility] Protocol Isosorbide Mononitrate 60 mg 10/30/22 09:00 Isosorbide Mononitrate 24hr Er 60 Mg Tab.Er.24h PO 10/30/23 08:59 DAILY [facility] Lidocaine 2 patch 10/31/22 09:00 Lidocaine 4% Adh..Patch TOPICAL 10/31/23 08:59 QAM [facility] Midodrine 5 mg 10/30/22 14:15 Midodrine 5 Mg Tablet PO 10/30/23 09:03 MoWeFr@1000 PRN for SBP < 85 Naloxone HCl 0.1 mg 10/29/22 23:50 Naloxone Hcl 0.4 Mg/Ml Vial IV-PUSH 10/29/23 23:49 Q2M PRN Opioid Reversal Non-Formulary Medication 1 tab 10/31/22 09:00 Multivitamin PO 10/31/23 08:59 DAILY [facility] Ondansetron HCl 4 mg 10/29/22 23:50 Ondansetron [...] (1,000 Units) Tablet PO 10/31/23 08:59 DAILY [facility] A&P - Hospitalist Assessment/Plan (1) Fall: (2) [...] Pain control -Okay for her to take Fenton every 4 hours for the pain. -Voltaren [...] for today Documented By: Carlton Mtz DO [id number] Signed By: <Electronically signed by Carlton Mtz DO> 10/30/22 1800 [facility] Work Phone: Progress note Author [facility] October 31, 2022 3:35pm Note Date/Time October 31, 2022 3:35pm [facility] [address] [place] [address] Nephrology Progress Note Signed Patient: Cinthya Wilson MR#: [id number] : 1945 Acct:[id number] Age/Sex: 77 / F Adm Date: 3 Loc: Room: 9W4865-2 Type: ADM IN Attending Dr: Carlton Mtz DO Copies to: ~ Date of Service: 10/31/2022 Subjective Subjective Narrative: Ms. 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 Patient currently gets dialysis at [facility] on MWF schedule. She is [...] 3 Ml Ampul.Neb) 1 ml INHALATION QID [facility] Stop: 10/30/23 08:59 Last Admin: 10/31/22 11:46 [...] 667 Mg Capsule) 667 mg PO TID.WITH.MEALS [facility] Stop: 10/30/23 07:59 Last Admin: 10/31/22 12:18 Dose: 667 mg Carvedilol (Carvedilol 3.125 Mg Tablet) 3.125 mg PO BID.WITH.MEALS [facility] Stop: 10/31/23 16:59 Citalopram Hydrobromide (Citalopram 40 Mg Tablet) 40 mg PO DAILY [facility] Stop: 10/31/23 08:59 Last Admin: 10/31/22 08:17 Dose: 40 mg Darbepoetin Theodore (Darbepoetin Theodore In Polysorbat 60 Mcg/Ml Vial) 60 mcg IV-PUSHWe@1015 [facility] Stop: 10/30/23 10:14 Last Admin: 10/30/22 10:16 Dose: 60 mcg Dextrose (Dextrose 50% In Water 25 Gm/50 Ml Syringe) 0 gm IV-PUSH PRN PRN PRN Reason: Hypoglycemia Stop: 10/29/23 23:55 Diclofenac Sodium (Diclofenac Sodium 1% Gel 50 Gm Tube) 4 gm TOPICAL QID [facility] Stop: 10/30/23 17:59 Last Admin: 10/31/22 14:36 Dose: 4 gm Docusate Sodium (Docusate 100 Mg Capsule) 100 mg PO BID [facility] Stop: 10/30/23 08:59 Last Admin: 10/31/22 08:17 Dose: 100 mg Docusate Sodium (Docusate 100 Mg Capsule) 200 mg PO QPM [facility] Stop: 10/30/23 20:59 Last Admin: 10/30/22 21:51 Dose: Not Given Glucose (Dextrose 40% Gel 15 Gm Tube) 0 gm PO PRN PRN PRN Reason: Hypoglycemia Stop: 10/29/23 23:55 Glucose (Dextrose 40% Gel 15 Gm Tube) 0.6 gm PO PRN PRN PRN Reason: Hypoglycemia Stop: 10/30/23 04:23 Heparin Sodium (Porcine) (Heparin 5,000 Unit/Ml Vial) 5,000 unit SUBCUT Q12HR [facility] Stop: 10/30/23 08:59 Last Admin: 10/31/22 08:17 Dose: 5,000 unit Sodium Chloride (0.9% Sodium Chloride 1,000 Ml) 1,000 mls @ 0 mls/hr MISCELLANE.Q0M PRN PRN Reason: Dialysis Stop: 10/30/23 09:03 Last Infusion: 10/30/22 10:17 Dose: Infused Insulin Aspart (Insulin Aspart 300 Units/3 Ml Insuln.Pen) 0 units SUBCUT TID.WM.HS [facility]; Protocol Stop: 10/30/23 07:59 Last Admin: 10/31/22 12:18 Dose: 2 units Lidocaine (Lidocaine 4% Adh..Patch) 2 patch TOPICAL QAM [facility] Stop: 10/31/23 08:59 Last Admin: 10/31/22 08:17 Dose: 2 patch Midodrine (Midodrine 5 Mg Tablet) 5 mg PO MoWeFr@1000 PRN PRN Reason: for SBP < 85 Stop: 10/30/23 09:03 Multivitamins (Multivitamin 1 Tab Tablet) 1 tab PO DAILY [facility] Stop: 10/31/23 08:59 Last Admin: 10/31/22 08:17 Dose: 1 tab Naloxone HCl (Naloxone Hcl 0.4 Mg/Ml Vial) 0.1 mg IV-PUSH Q2M PRN PRN Reason: Opioid Reversal Stop: 10/29/23 23:49 Ondansetron HCl (Ondansetron Odt 4 Mg Tab.Rapdis) 4 mg PO Q6HR PRN PRN Reason: Nausea And Vomiting Stop: 10/29/23 23:49 Pantoprazole Sodium (Pantoprazole 40 Mg Tablet.Dr) 40 mg PO DAILY [facility] Stop: 10/30/23 08:59 Last Admin: 10/31/22 08:17 Dose: 40 mg Sennosides (Sennosides 8.6 Mg Tablet) 1 tab PO BID [facility] Stop: 10/30/23 08:59 Last Admin: 10/31/22 08:17 Dose: 1 tab Sodium Chloride (Sodium Chloride 0.9 % 10 Ml Syringe) 0 ml IV-PUSH PRN PRN PRN Reason: Flush Stop: 10/29/23 20:01 Last Admin: 10/30/22 10:15 Dose: 10 ml Sodium Chloride (Sodium Chloride 0.9 % 10 Ml Syringe) 0 ml IV-PUSH QSHIFT [facility] Stop: 10/30/23 05:59 Last Admin: 10/31/22 14:32 [...] volume overload. [facility] (2) Fall [...] any time. Documented By: Narinder Toussaint MD 10/31/221529 Signed By: <Electronically signed by MD Narinder Toussaint> 10/31/22 8470 [facility] Work Phone: Progress note Author Edie Michel [facility] October 31, 2022 4:31pm Note Date/Time October 31, 2022 4:21pm [facility] [address] [place] [address] Cardiology Progress Note Signed Patient: Cinthya Wilson MR#: [id number] : 1945 Acct:[id number] Age/Sex: 77 / F Adm Date: 3 Loc: Room: [address] [place] [address] Type: ADM IN Attending Dr: Carlton Mtz [...] % (Auto) 61.2 Lymph % (Auto) 19.6 Gilchrist % (Auto) 13.8 Eos % (Auto) 4.7 Baso % (Auto) 0.7 Nucleat RBC Rel Count 0.0 Neut # (Auto) 3.3 Lymph # (Auto) 1.1 Gilchrist # (Auto) 0.7 Eos # (Auto) 0.3 [...] MPV Neut % (Auto) Lymph % (Auto) Gilchrist % (Auto) Eos % (Auto) Baso % (Auto) Nucleat RBC Rel Count Neut # (Auto) Lymph # (Auto) Gilchrist # (Auto) Eos # (Auto) Baso # [...] post PCIx1 about 10 years ago in [place], ESRD on HD, hypertension, hyperlipidemia, CHF, COPD [...] Code(s): I25.10 - Atherosclerotic heart disease of algaaciq coronary artery without angina pectoris Status: Acute Plan: -Imdur discontinued from the office due to hypotension. Continue aspirin 81 mg daily, Carvedilol 3.125mg BID and Lipitor 40 mg daily -Office records from [facility] reviewed. (3) Systolic and diastolic CHF, acute on chronic: Assessment/Problem Details: NYHA class II. ACC stage C. Euvolemic Code(s): I50.43 - Acute on chronic combined systolic (congestive) and diastolic (congestive) heart failure Status: Acute Plan - Records from [facility] revealed EF of 45% with mildly dilated LV and mild global hypokinesis in July 2022. -Holding valsartan due to hypotension. Continue carvedilol 3.125 mg twice daily. Continue Lasix as directed by nephrology. -Continue volume management via HD -Follow-up with [facility] cardiology in 1 month after discharge -We will sign off please call with questions. Documented By: Edie Michel MD 10/31/22 1617 Signed By: <Electronically signed by Edie Michel MD> 10/31/22 1631 [facility] Work Phone: Progress note No data available for this section [facility] Author Tatiana Loya [facility] December 30, 2022 11:46am Note Date/Time December 30, 2022 11:46am [facility] [address] [place] [address] Hospitalist Progress Note Signed Patient: Cinthya Wilson MR#: [id number] : 1945 Acct:[id number] Age/Sex: 77 / F Adm Date: 3 Loc: Room: [address] [place] [address] Type: ADM IN Attending Dr: Tatiana Loya [...] 02:59 Saliva Stimulant Agents Comb.3 44.3 Ml Swatara MUCOUS MEM 12/30/23 02:58 PRN PRN Dry [...] chronic use of hydrocodone product such as Fenton 10/325 up to Percocet 5/325 enough for [...] signed by Tatiana Loya MD> 12/30/22 1146 [facility] Work Phone: Progress note Author Tatiana Loya [facility] December 31, 2022 11:33am Note Date/Time December 31, 2022 11:33am [facility] [address] [place] [address] Hospitalist Progress Note Signed Patient: Cinthya Wilson MR#: [id number] : 1945 Acct:[id number] Age/Sex: 77 / F Adm Date: 3 Loc: Room: [address] [place] [address] Type: ADM IN Attending Dr: Tatiana Loya [...] Tube TOPICAL 12/30/23 08:59 Not Given QID [facility] Docusate Sodium 100 mg 12/30/22 09:00 12/31/22 [...] 12/30/22 09:00 12/31/22 08:37 Pantoprazole 40 Mg Tablet. PO 12/30/23 08:59 [...] 02:59 Saliva Stimulant Agents Comb.3 44.3 Ml Swatara MUCOUS MEM 12/30/23 02:58 PRN PRN Dry [...] chronic use of hydrocodone product such as Fenton 10/325 up to Percocet 5/325 enough for [...] signed by Tatiana Loya MD> 12/31/22 1133 [facility] Work Phone: Progress note Author Narinder Toussaint [facility] December 31, 2022 12:23pm Note Date/Time December 31, 2022 12:18pm [facility] [address] [place] [address] Nephrology Progress Note Signed Patient: Cinthya Wilson MR#: [id number] : 1945 Acct:[id number] Age/Sex: 77 / F Adm Date: 3 Loc: Room: [address] [place] [address] Type: ADM IN Attending Dr: Tatiana Loya MD Copies to: ~ Date of Service: 12/31/2022 Subjective Subjective Narrative: Ms. 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 Patient currently gets dialysis at [facility] on MWF schedule. Patient had [...] 40 mg Bisacodyl (Bisacodyl 5 Mg Tablet.) 5 mg PO BID PRN PRN Reason: Constipation Stop: 12/30/23 03:22 Calcium Acetate (Calcium Acetate 667 Mg Capsule) 667 mg PO TID.WITH.MEALS [facility] Stop: 12/30/23 07:59 Last Admin: 12/31/22 11:55 Dose: 667 mg Citalopram Hydrobromide (Citalopram 40 Mg Tablet) 40 mg PO DAILY [facility] Stop: 12/30/23 08:59 Last Admin: 12/31/22 08:37 Dose: 40 mg Darbepoetin Theodore (Darbepoetin Theodore In Polysorbat 60 Mcg/Ml Vial) 80 mcg IV- PUSHWE [facility] Stop: 01/01/24 08:28 Dextrose (Dextrose 50% In Water 25 Gm/50 Ml Syringe) 0 gm IV-PUSH PRN PRN PRN Reason: Hypoglycemia Stop: 12/30/23 03:22 Diclofenac Sodium (Diclofenac Sodium 1% Gel 100 Gm Tube) 4 gm TOPICAL QID [facility] Stop: 12/30/23 08:59 Last Admin: 12/31/22 08:44 Dose: Not Given Docusate Sodium (Docusate 100 Mg Capsule) 100 mg PO BID [facility] Stop: 12/30/23 08:59 Last Admin: 12/31/22 08:37 Dose: 100 mg Ferric Sodium Gluconate Complex (Sodium Ferric Gluconat/Sucrose 62.5 Mg/5 Ml Vial) 125 mg IV-PUSH Mo@0900 [facility] Stop: 12/30/23 08:59 Last Admin: 12/30/22 10:03 Dose: 125 mg Furosemide (Furosemide 20 Mg Tablet) 60 mg PO BID@0800,1700 [facility] Stop: 12/30/23 08:59 Last Admin: 12/31/22 08:37 [...] Units/3 Ml Insuln.Pen) 0 units SUBCUT TID.WM.HS [facility]; Protocol Stop: 12/30/23 07:59 Last Admin: 12/31/22 11:55 Dose: 3 units Midodrine (Midodrine 5 Mg Tablet) 5 mg PO TID.7A.12P.5P PRN PRN Reason: Hypotension Stop: 12/30/23 03:21 Multivitamins (Multivitamin 1 Tab Tablet) 1 tab PO DAILY [facility] Stop: 12/30/23 08:59 Last Admin: 12/31/22 08:37 Dose: 1 tab Nystatin (Nystatin Susp 500,000 Unit/5 Ml Udc) 500,000 unit PO QID [facility] Stop: 12/31/23 13:59 Oxycodone/Acetaminophen (Oxycodone/Acetaminophen 5-325 Mg Tablet) 1 tab PO [id number] PRN Reason: Pain Last Admin: 12/30/22 16:50 Dose: 1 tab Pantoprazole Sodium (Pantoprazole 40 Mg Tablet.) 40 mg PO DAILY [facility] Stop: 12/30/23 08:59 Last Admin: 12/31/22 08:37 Dose: 40 mg Polyethylene Glycol (Polyethylene Glycol 3350 17 Gm Powd.Pack) 17 gm PO BID [facility] Stop: 12/31/23 08:59 Last Admin: 12/31/22 08:37 Dose: Not Given Pramipexole Dihydrochloride (Pramipexole 0.5 Mg Tablet) 0.5 mg PO QHS [facility] Stop: 12/30/23 21:59 Last Admin: 12/30/22 22:13 Dose: 0.5 mg Prednisone (Prednisone 20 Mg Tablet) 40 mg PO DAILY [facility] Stop: 12/30/23 13:29 Last Admin: 12/31/22 08:37 Dose: 40 mg Saliva Substitute (Saliva Stimulant Agents Comb.3 44.3 Ml Swatara) 0 ml MUCOUS MEM PRN PRN PRN [...] <Electronically signed by MD Narinder Toussaint> 12/31/22 7806 [facility] Work Phone: Progress note Author Edie Michel [facility] December 31, 2022 5:16pm Note Date/Time December 31, 2022 5:16pm [facility] [address] [place] [address] Cardiology Progress Note Signed Patient: Cinthya Wilson MR#: [id number] : 1945 Acct:[id number] Age/Sex: 77 / F Adm Date: 3 Loc: Room: [address] [place] [address] Type: ADM IN Attending Dr: Tatiana Loya MD Copies to: ~ Date of Service: 12/31/2022 Subjective Interval history: Ms. Wilson is a 77 year old female with PMH significant for CAD status post PCI x1 about 10 years ago in [place], ESRD on HD, hypertension, hyperlipidemia, CHF, COPD [...] % (Auto) 91.5 Lymph % (Auto) 4.3 Gilchrist % (Auto) 4.1 Eos % (Auto) 0.0 Baso % (Auto) 0.1 Nucleat RBC Rel Count 0.1 Neut # (Auto) 6.7 Lymph # (Auto) 0.3 L Gilchrist # (Auto) 0.3 Eos # (Auto) 0.0 [...] MPV Neut % (Auto) Lymph % (Auto) Gilchrist % (Auto) Eos % (Auto) Baso % (Auto) Nucleat RBC Rel Count Neut # (Auto) Lymph # (Auto) Gilchrist # (Auto) Eos # (Auto) Baso # [...] MPV Neut % (Auto) Lymph % (Auto) Gilchrist % (Auto) Eos % (Auto) Baso % (Auto) Nucleat RBC Rel Count Neut # (Auto) Lymph # (Auto) Gilchrist # (Auto) Eos # (Auto) Baso # [...] PCI x1 about 10 years ago in [place], ESRD on HD, hypertension, hyperlipidemia, CHF, COPD [...] Friday as well as 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 -Spoke to daughter today, she will drop off event monitor at [facility] diagnostics[facility] - Avoid AVN blockers - Continue telemetry monitoring. - Will follow. Documented By: Edie Michel MD 11/1710 Signed By: <Electronically signed by Edie Michel MD> 12/31/221715 [facility] Work Phone: Progress note Author Tatiana Loya [facility] January 01, 2023 10:00am Note Date/Time January 01, 2023 10:00am [facility] [address] [place] [address] Hospitalist Progress Note Signed Patient: Cinthya Wilson MR#: [id number] : 1945 Acct:[id number] Age/Sex: 77 / F Adm Date: 3 Loc: Room: [address] [place] [address] Type: ADM IN Attending Dr: Tatiana Loya [...] 02:59 Saliva Stimulant Agents Comb.3 44.3 Ml Swatara MUCOUS MEM 12/30/23 02:58 PRN PRN Dry [...] chronic use of hydrocodone product such as Fenton 10/325 up to Percocet 5/325 enough for [...] signed by Tatiana Loya MD> 01/01/23 1000 [facility] Work Phone: Progress note Author Donal Farrar [facility] January 01, 2023 11:33am Note Date/Time January 01, 2023 11:28am [facility] [address] [place] [address] Cardiology Progress Note Signed Patient: Cinthya Wilson MR#: [id number] : 1945 Acct:[id number] Age/Sex: 77 / F Adm Date: 3 Loc: Room: [address] [place] [address] Type: ADM IN Attending Dr: Tatiana Loya MD Copies to: ~ Date of Service: 01/01/2023 Subjective Principal diagnosis: NSVT, sinus bradycardia on negative chronotropic therapy Interval history: Ms. Wilson is a 77 year old female with PMH significant for CAD status post PCI x1 about 10 years ago in [place], ESRD on HD, hypertension, hyperlipidemia, CHF, COPD [...] MPV Neut % (Auto) Lymph % (Auto) Gilchrist % (Auto) Eos % (Auto) Baso % (Auto) Nucleat RBC Rel Count Neut # (Auto) Lymph # (Auto) Gilchrist # (Auto) Eos # (Auto) Baso # [...] % (Auto) 87.5 Lymph % (Auto) 6.5 Gilchrist % (Auto) 5.9 Eos % (Auto) 0.0 Baso % (Auto) 0.1 Nucleat RBC Rel Count 0.0 Neut # (Auto) 8.8 H Lymph # (Auto) 0.7 L Gilchrist # (Auto) 0.6 Eos # (Auto) 0.0 [...] 0.9 Imaging and cardiology Echo: Additional comments: [facility] [place] [address] [place] [address] Echocardiogram Signed Patient: Cinthya Wilson : 1945 [...] FS: 24.3 % Ao root area: 6.2 [id number] [id number]: 8.9 cm EDV(Teich): EDV(MOD-sp4): 149.3 ml [...] PCI x1 about 10 years ago in [place], ESRD on HD, hypertension, hyperlipidemia, CHF, COPD [...] Friday as well as 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 - Avoid AVN blockers - Continue telemetry monitoring. -No new recommendations from a cardiac standpoint. Will follow. Time spent with patient Time Spent With Patient (min): 20 Documented By: Donal Farrar MD 01/01/231122 Signed By: <Electronically signed by Donal Farrar MD> 01/01/23 1133 [facility] Work Phone: Progress note Author Narinder Toussaint [facility] January 01, 2023 1:18pm Note Date/Time January 01, 2023 1:18pm [facility] [address] [place] [address] Nephrology Progress Note Signed Patient: Cinthya Wilson MR#: [id number] : 1945 Acct:[id number] Age/Sex: 77 / F Adm Date: 3 Loc: Room: [address] [place] [address] Type: ADM IN Attending Dr: Tatiana Loya MD Copies to: ~ Date of Service: 01/01/2023 Subjective Subjective Narrative: Ms. 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 Patient currently gets dialysis at [facility] on [facility] schedule. Patient had recent admission on December [...] 40 Mg Tablet) 40 mg PO DAILY [facility] Stop: 12/30/23 08:59 Last Admin: 01/01/23 08:26 Dose: 40 mg Darbepoetin Theodore (Darbepoetin Theodore In Polysorbat 40 Mcg/Ml Vial) 80 mcg IV- PUSHWE [facility] Stop: 01/01/24 08:59 Last Admin: 01/01/23 09:41 [...] 20 Mg Tablet) 60 mg PO BID@0800,1700 [facility] Stop: 12/30/23 08:59 Last Admin: 01/01/23 08:26 [...] Units/3 Ml Insuln.Pen) 0 units SUBCUT TID.WM.HS [facility]; Protocol Stop: 12/30/23 07:59 Last Admin: 01/01/23 08:27 Dose: 2 units Midodrine (Midodrine 5 Mg Tablet) 5 mg PO TID.7A.12P.5P PRN PRN Reason: Hypotension Stop: 12/30/23 03:21 Multivitamins (Multivitamin 1 Tab Tablet) 1 tab PO DAILY [facility] Stop: 12/30/23 08:59 Last Admin: 01/01/23 08:26 Dose: 1 tab Nystatin (Nystatin Susp 500,000 Unit/5 Ml Udc) 500,000 unit PO QID [facility] Stop: 12/31/23 13:59 Last Admin: 01/01/23 08:25 Dose: 500,000 unit Oxycodone/Acetaminophen (Oxycodone/Acetaminophen 5-325 Mg Tablet) 1 tab PO [id number] PRN Reason: Pain Last Admin: 01/01/23 08:25 [...] Substitute (Saliva Stimulant Agents Comb.3 44.3 Ml Swatara) 0 ml MUCOUS MEM PRN PRN PRN [...] <Electronically signed by MD Narinder Toussaint> 01/01/231317 [facility] Work Phone: Progress note Author Georgia Negro [facility] January 02, 2023 12:45pm Note Date/Time January 02, 2023 12:42pm [facility] [address] [place] [address] Cardiology Progress Note Signed Patient: Cinthya Wilson MR#: [id number] : 1945 Acct:[id number] Age/Sex: 77 / F Adm Date: 3 Loc: Room: [address] [place] [address] Type: ADM IN Attending Dr: Tatiana Loya [...] MPV Neut % (Auto) Lymph % (Auto) Gilchrist % (Auto) Eos % (Auto) Baso % (Auto) Nucleat RBC Rel Count Neut # (Auto) Lymph # (Auto) Gilchrist # (Auto) Eos # (Auto) Baso # [...] % (Auto) 80.8 Lymph % (Auto) 9.7 Gilchrist % (Auto) 9.4 Eos % (Auto) 0.0 Baso % (Auto) 0.1 Nucleat RBC Rel Count 0.0 Neut # (Auto) 8.5 H Lymph # (Auto) 1.0 Gilchrist # (Auto) 1.0 H Eos # (Auto) [...] MPV Neut % (Auto) Lymph % (Auto) Gilchrist % (Auto) Eos % (Auto) Baso % (Auto) Nucleat RBC Rel Count Neut # (Auto) Lymph # (Auto) Gilchrist # (Auto) Eos # (Auto) Baso # [...] has been following by cardiology group in [place] she is scheduled to see them on Friday with consideration for pacemaker or AICD 3. Coronary artery disease with remote PCI 4. End-stage renal disease Plan 1. Patient would like to go home. I advised her that it would be difficult to predict the risk of arrhythmia and or syncope. 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 I suspect the patient will need a [...] <Electronically signed by MD Georgia Negro> 01/02/23 1245 [facility] Work Phone: Summary Purpose Family History No Family History Records Found Relationship Condition Age at Onset Recorded Date/T jenelle father Heart disease Unknown Malignant neoplasm Unknown Not Specified Malignant neoplasm Unknown Diabetes mellitus Unknown Relationship Condition Age at Onset Recorded Date/T jenelle father Heart disease Unknown Malignant neoplasm Unknown Not Specified Malignant neoplasm Unknown Diabetes mellitus Unknown brother Malignant neoplasm Unknown father Unknown family member Unknown Unknown Advance Directives No Advanced Directives Records Found Advance Directive Response Recorded Date/ Time Advance Directives Yes November 29, 2019 12:53pm Advance Directive Response Recorded Date/ Time Advance Directives Yes November 29, 2019 11:53am Hospital Course Note MR#: [id number] I [facility] Pt. Name: Cinthya Wilson Admitted: 10/08/2019 Discharged: 10/14/2019 Date of : 1945 Physician: Yovani Ayon MD DISCHARGE SUMMARY FINAL DIAGNOSES: 1. Nbmxj-uy-owpqlud diastolic heart failure exacerbation. 2. Cvvqy-gm-orzhxmy kidney disease with acute kidney injury. 3. Uncontrolled diabetes, insulin dependent with hypoglycemia. 4. Coronary artery disease status post stent. 5. Hypertension. 6. Hyperlipidemia. 7. Depression. 8. Chronic anemia. HOSPITAL COURSE: The patient was admitted to Medicine Service Step-down with livog-cb-hgkgcvt diastolic heart failure. Cardiology was consulted. IV [...] diabetic chronic kidney disease Ventricular tachycardia, sustained Chief Complaint weakness, lethargic ESRD weakness Weakness Weakness Reason for Visit Anemia Chronic pleural effusion COPD (chronic obstructive pulmonary disease) Diabetes Fever Pain in joints Recurrent right pleural effusion Swollen tongue Symptomatic bradycardia Weakness ESRD on dialysis Generalized weakness COPD (chronic obstructive pulmonary disease) Syncope ESRD on dialysis Generalized weakness Hypokalemia Hypomagnesemia Hypotension Seizure-like activity Ventricular tachycardia, sustained Acute hyperkalemia Chronic hypoxemic respiratory failure COPD (chronic obstructive pulmonary disease) End-stage renal disease (ESRD) Fluid overload Heart failure Missed dialysis Neck pain Visual changes Chief Complaint ESRD weakness Weakness Weakness Weakness Weakness Reason for Visit COPD (chronic obstru ctive pulmonary disease) Syncope ESRD on dialysis Generalized weakness Hypokalemia Hypomagnesemia Hypotension Seizure-like activity Ventricular tachycardia, sustained Acute hyperkalemia Anemia Carotid stenosis, bilateral Chronic hypoxemic respiratory failure COPD (chronic obstructive pulmonary disease) Diplopia End-stage renal disease (ESRD) Fluid overload Heart failure Missed dialysis Neck pain Visual changes Assessments No Assessments Information Available Additional Source Comments INFORMATION SOURCE (unrecogn ized section and content) DATE CREATED AUTHOR 10/26/2019 [facility] DATE CREATED AUTHOR AUTHOR'S ORGANIZ ATION 03/06/2021 [facility] DATE CREATED AUTHOR AUTHOR'S ORGANIZ ATION 03/23/2021 [facility] DATE CREATED AUTHOR AUTHOR'S ORGANIZ ATION 07/27/2021 [facility] DATE CREATED AUTHOR AUTHOR'S ORGANIZ ATION 06/07/2022 [facility] DATE CREATED AUTHOR AUTHOR'S ORGANIZ ATION 08/24/2022 [facility] DATE CREATED AUTHOR AUTHOR'S ORGANIZ ATION 12/15/2022 [facility] DATE CREATED AUTHOR AUTHOR'S ORGANIZ ATION 02/21/2023 [facility] EPIC DATE CREATED AUTHOR AUTHOR'S ORGANIZ ATION 03/27/2023 [facility] DATE CREATED AUTHOR AUTHOR'S ORGANIZ ATION 04/02/2023 [facility] DATE CREATED AUTHOR AUTHOR'S ORGANIZ ATION 04/16/2023 [facility] REASON FOR VISIT (unrecogniz ed section and [...] content) Team Status: Active Member Role Status Lalita [...] Moreno DO Emergency Provider Active Pennie Love DO Admit Provider, Attending Provider Active Team Status: Active Member Role Status Lalita Aldrich II MD Primary Care Provider Active Azar Palmer Jr, MD Emergency Provider Active Gary Almaguer MD Admit Provider, Attending Provi sydnee Active Team Status: Inactive Member Role Status Lalita Aldrich II MD Primary Care Provider Active Tessie Walker NP-C Attending Provider Active Team Status: Inactive Member [...] Moreno DO Emergency Provider Active Pennie Love DO Admit Provider Active Teresa Pagan MD [...] Jr, MD Emergency Provider Active Carlton Mtz DO Admit Provider, Attending Pr ovider Active Team Status: Inactive Member Role Status Lalita Aldrich II MD Primary Care Provider Active Azar Palmer Jr, MD Emergency Provider Active Carlton Mtz DO Admit Provider Active Tatiana Loya MD Attending Provider Active Moo Villanueva MD Other Provider Active Edie Michel MD Other Provider Active Narinder Toussaint MD Other Provider Active Team Status: Inactive Member Role Status Dates Lily Aldrich II MD Primary Care Provider Active Azar Palmer Jr, MD Emergency Provider Active Carlton Mtz DO Admit Provider Active Tatiana Loya MD [...] Wood Zavala MD Other Provider Active Start: [facility]2022 End: December 09, 2022 Team Status: Inactive Member Role Status Lalita Aldrich II MD Primary Care Provider Active Start: December 09, 2022 End: December 09, 2022 Edie Michel MD Attending Provider Active Sta rt: December 09, 2022 End: December 09, 2022 Team Status: Inactive Member Role Status Lalita [...] Toussaint MD Other Provider Active Start: N ovember 2022 End: December 16, 2022 Annette Tenorio [...] Farrar MD Other Provider Active Start: Dagoberto sahu 2023 Moo Villanueva MD Other Provider Active Start: March 05, 2023 Edie Michel MD Other Provider Active Start: March 05, 2023 Narinder Toussaint MD Attending Provider, Other Provider Active Start: March 05, 2023 Team Status: Active Member Role Status Dates Lily Aldrich II MD Primary Care Provider Active Start: April 01, 2023 Chi Henderson DO Emergency Provider Active Sta rt: April 01, 2023 Teresa Pagan MD Admit Provider, Atte nding Provider Active Start: April 01, 2023 Team Status: Active Member Role Status Dates Lily Aldrich II MD Primary Care Provider Active Start: April 01, 2023 Chi Henderson DO Emergency Provider Active Sta rt: April 01, 2023 Teresa Pagan MD Admit Provider, Atte nding Provider, Other Provider Active Start: April 01, 2023 Team Status: Inactive Member Role Status Dates Lily Aldrich II MD Primary Care Provider Active Start: April 01, 2023 End: April 05, 2023 Chi Henderson DO Emergency Provider Active Sta rt: April 01, 2023 End: April 05, 2023 Teresa Pagan MD Admit Provider Active Start: April 01, 2023 End: April 05, 2023 Gary Almaguer MD Attending Provider Active Start: April 01, 2023 End: April 05, 2023 Geronimo Fofana MD Other Provider Active Start: 2023 End: April 05, 2023 Danny Mcclelland DO Other Provider Active Start: April 01, 2023 End: April 05, 2023 Maxime Bhatti MD Other Provider Active Start: April 01, 2023 End: April 05, 2023 Team Status: Active Member Role Status Dates Lily Aldrich II MD Primary Care Provider Active Start: April 02, 2023 Chi Henderson DO Emergency Provider Active Sta rt: April 02, 2023 Teresa Pagan MD Admit Provider Active Start: April 02, 2023 Gary Almaguer MD Other Provider Active Sta rt: April 02, 2023 Geronimo Fofana MD Other Provider Active Start: ebruary 2023 Danny Mcclelland DO Other Provider Active Start: April 02, 2023 Maxime Bhatti MD Attending Prov ider, Other Provider Active Start: April 02, 2023 Team Status: Active Member Role Status Dates Lily Aldrich II MD Primary Care Provider Active Start: April 02, 2023 Chi Henderson DO Emergency Provider Active Sta rt: April 02, 2023 Teresa Pagan MD Admit Provider Active Start: April 02, 2023 Danny Mcclelland DO Other Provider Active Start: April 02, 2023 Geronimo Fofana MD Attending Provider, Other Provider Active Start: April 02, 2023 Maxime Bhatti MD Other Provider Active Start: April 02, 2023 Gary Almaguer MD Other Provider Active Sta rt: April 02, 2023 Goals (unrecognized section and content) Goals [...] BE BASED ON THE PRIMARY CLINICAL RECORDS. [employer] provides no warranty or guarantee of the accuracy or completeness of information in this document.
== END 2023-04-22 07:48 | disposition home or self-care (01) ==
LOC: CT 07:47
PROVIDERS: PCP Internal Medicine; Visit Provider Internal Medicine Nephrology
DX: R14.0 Abdominal distension (gaseous) (principal); J90 Pleural effusion, not elsewhere classified
CPT/HCPCS: 74176

== ENCOUNTER 2023-06-25 12:33 | Emergency (ER) | payer MEDICARE, SELFPAY ==
[2023-06-25 12:39] VITALS: BP 82/48; PULSE 97; TEMP 36.4; O2SAT 96; BMI 22.3
[2023-06-25] MEDS: 0.9 % SODIUM CHLORIDE 500 ML IV (13:36)
[2023-06-25] MEDS: DIPHENHYDRAMINE HCL 50 MG/ML (1ML) VIAL 25 MG IV (13:38)
[2023-06-25] MEDS: KETOROLAC TROMETHAMINE 30 MG/ML VIAL 15 MG IVP (13:38)
[2023-06-25] MEDS: METOCLOPRAMIDE HCL 10 MG/2 ML VIAL 5 MG IVP (13:39)
[2023-06-25 13:43] LABS: Basophils Percent Auto 0.6 % (0.2-2.0); Eosinophils Absolute Auto 0.2 10^3/uL (0.0-0.7); Eosinophils Percent Auto 2.2 % (0.9-7.0); Hematocrit 44.9 % (36.0-48.0); Hemoglobin 13.6 g/dL (12.0-16.0); Immature Granulocytes Abs Auto 0.02 10^3/uL (0.00-0.03); Immature Granulocytes Pct Auto 0.3 % (0.0-0.5); Lymphocytes Percent Auto 15.1 % (20.5-60.0); Mean Corpuscular HGB Conc 30.3 g/dL (29.9-35.2); Mean Corpuscular Hemoglobin 27.9 pg (26.7-34.0); Mean Platelet Volume 11.2 fL (9.5-13.5); Monocytes Absolute Auto 0.7 10^3/uL (0.3-0.8); Neutrophils Absolute Auto 4.9 10^3/uL (1.4-6.5); Neutrophils Percent Auto 71.8 % (43.0-75.0); Platelet Count 167 10^3/uL (150-450); Red Blood Count 4.88 10^6/uL (4.20-5.40); Red Cell Distribution Width 17.2 % (11.0-15.0); White Blood Count 6.8 10^3/uL (4.0-11.0)
--- NOTE | 2023-06-25 13:54 | ED_ITS ---
HPI HPI - General Adult General Chief complaint: Headache Stated complaint: HEADACHE Time Seen by Provider: 06/25/23 12:38 Source: patient Mode of arrival: walk-in Limitations: no limitations History of Present Illness HPI narrative: Patient presents to ED complaining of right-sided headache that radiates down into the back of her neck. She said it got severe at dialysis today. She has been dealing with headaches for about a month and she has seen a neurologist. She is also had CAT scans and MRIs of her head. She does have a history of C- spine surgery with fusion. She denies any pain down into her arms. No weakness in her arms. No visual changes no speech difficulties. Patient's blood pressure is slightly low on arrival but she said that is very common after dialysis for her. She is alert and oriented in no acute distress. No rash on the scalp. No other complaints at this time. Related Data Home Medications ?Medication ?Instructions ?Recorded ?Confirmed aspirin 81 mg tablet,delayed 81 mg PO DAILY 12/13/22 03/31/23 release (Adult Low Dose Aspirin) atorvastatin 40 mg tablet 40 mg PO BEDTIME 12/13/22 03/31/23 calcium acetate(phosphat bind) 667 667 mg PO TID 12/13/22 03/31/23 mg capsule citalopram 40 mg tablet 40 mg PO DAILY 12/13/22 03/31/23 docusate sodium 100 mg capsule 100 mg PO BID 12/13/22 03/31/23 (Colace) furosemide 20 mg tablet 60 mg PO BID 12/13/22 03/31/23 insulin lispro 100 unit/mL 1 sliding scale dose subcut 12/13/22 03/31/23 subcutaneous pen (Humalog Tempo USEASDIRECTD Pen (U-100) Insulin) multivitamin (Daily Multi-Vitamin 1 tab PO DAILY 12/13/22 03/31/23 tablet) oxycodone-acetaminophen 5 mg-325 1 tab PO Q6H PRN pain 12/13/22 03/31/23 mg tablet pantoprazole 40 mg tablet,delayed 40 mg PO DAILY 12/13/22 03/31/23 release pramipexole 0.5 mg tablet 0.5 mg PO QPM 12/13/22 03/31/23 sennosides 8.6 mg tablet (senna) 8.6 mg PO BID 12/13/22 03/31/23 acetaminophen 650 mg 650 mg PO Q8H PRN pain 01/06/23 03/31/23 tablet,extended release (Arthritis Pain Relief (acetaminophen) ER) albuterol sulfate 0.63 mg/3 mL 0.63 mg continuous nebulization 01/06/23 03/31/23 solution for nebulization Q4H PRN shortness of breath or wheezing fluticasone fur. 100 mcg-umeclid 1 inh inhalation DAILY 01/06/23 03/31/23 62.5 mcg-vilant 25 mcg inhalat.powder (Trelegy Ellipta) ammonium lactate 12 % lotion 1 applic topical DAILY 03/31/23 03/31/23 buspirone 10 mg tablet 10 mg PO BID 03/31/23 03/31/23 metoprolol succinate 25 mg 25 mg PO DAILY 03/31/23 03/31/23 tablet,extended release 24 hr mexiletine 200 mg capsule 200 mg PO DAILY 03/31/23 03/31/23 pregabalin 50 mg capsule 50 mg PO DAILY 03/31/23 03/31/23 Allergies Allergy/AdvReac Type Severity Reaction Status Date / Time gabapentin Allergy Severe swollen Verified 03/31/23 00:35 tongue lisinopril Allergy Intermediate Verified 07/11/22 21:15 Opioid HPI Opioid Management Most Recent Opioid Data: Last Pain Scale 9 03/31/23 00:52 Last MAR Pain Assessment 06/25/23 13:38 Review of Systems ROS Status of ROS 10 or more systems reviewed and unremark able except as noted in history and below [facility] Medical History (Updated 06/25/23 @ 14:12 by Cinthya Basilio DO) Dementia ?F03.90 - Unspecified dementia, unspecified severity, without behavioral disturbance, psychotic disturbance, mood disturbance, and anxiety (ICD-10) Type 2 diabetes mellitus with hyperglycemia ?E11.65 - Type 2 diabetes mellitus with hyperglycemia (ICD-10) End stage renal disease on dialysis ?N18.6 - End stage renal disease (ICD-10) ?Z99.2 - Dependence on renal dialysis (ICD-10) Renal failure, chronic ?N18.9 - Chronic kidney disease, unspecified (ICD-10) Symptomatic bradycardia ?R00.1 - Bradycardia, unspecified (ICD-10) Laceration of scalp ?S01.01XA - Laceration without foreign body of scalp, initial encounter (ICD- 10) Contusion of multiple sites ?T07.XXXA - Unspecified multiple injuries, initial encounter (ICD-10) Syncope ?R55 - Syncope and collapse (ICD-10) Fracture of fifth metatarsal bone of left foot ?S92.352A - Displaced fracture of fifth metatarsal bone, left foot, initial encounter for closed fracture (ICD-10) Surgical History Hx of shoulder replacement ?Z96.619 - Presence of unspecified artificial shoulder joint (ICD-10) Family History Father Family history of CHF (congestive heart failure) Family history of cancer Family history of hypertension Family history of stroke Mother Family history of cancer Family history of diabetes mellitus Brother Family history of cancer Social History Within the past year, how often did you have a drink containing alcohol: never Score interpretation: A score less than 3 is consistent with normal alcohol consumption. 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 Highest level of school completed/degree received: high school graduate Are you now , , , , never or living with a partner: In a typical week, how many times do you talk on the telephone with family, friends, or neighbors: twice per week How often do you get together with friends or relatives: twice per week How often do you attend scientology or worship services: never Do you belong to any clubs or organizations such as scientology groups unions, fraternal or athletic groups, or school groups: no Total score: 1 Score interpretation: A score of less than or equal to 1 indicates the most socially isolated. Little interest or pleasure in doing things: not at all Feeling down, depressed, or hopeless: not at all Feel stressed/tense/nervous/anxious/difficulty sleeping: only a little Exam Narrative Exam Narrative: Time Seen: [] Vital Signs: [Per nurse's notes.] General: [Alert] Skin: [Warm, dry, no rash.] Head: [Normocephalic, atraumatic.No rash Neck: [Supple, trachea midline.] Eye: [Pupils are equal, round and reactive to light, extraocular movements are intact, normal conjunctiva.] Ears, nose, mouth and throat: oral mucosa moist. Cardiovascular: [Regular rate and rhythm, no murmur.] Respiratory: [Lungs are clear to auscultation, respirations are non-labored, breath sounds are equal.] Chest wall: [No tenderness, no deformity.] Gastrointestinal: [Soft, nontender, non distended, normal bowel sounds.] MSK: 5 out of 5 muscle strength x 4 extremities no calf pain or edema Lymphatics: [No lymphadenopathy.] Psychiatric: [Cooperative, appropriate mood & affect.] Neurological: [Alert and oriented to person, place, time, and situation, no focal neurological deficit observed.] Constitutional Vital Signs, click to edit/add: Last Vital Signs Temp 97.6 F 06/25/23 12:39 Pulse 97 H 06/25/23 12:39 Resp 18 06/25/23 12:39 BP 82/48 L 06/25/23 12:39 Pulse Ox 96 06/25/23 12:39 O2 Del Method Room Air 06/25/23 12:39 Course Vital Signs Vital signs: Vital Signs Temperature 97.6 F 06/25/23 12:39 Pulse Rate 97 H 06/25/23 12:39 Respiratory Rate 18 06/25/23 12:39 Blood Pressure 82/48 L 06/25/23 12:39 Pulse Oximetry 96 06/25/23 12:39 Oxygen Delivery Method Room Air 06/25/23 12:39 Temperature 97.6 F 06/25/23 12:39 Pulse Rate 97 H 06/25/23 12:39 Respiratory Rate 18 06/25/23 12:39 Blood Pressure 82/48 L 06/25/23 12:39 Pulse Oximetry 96 06/25/23 12:39 Oxygen Delivery Method Room Air 06/25/23 12:39 Medical Decision Making MDM Narrative Medical decision making narrative: Patient reports that she got a CT scan at [facility] about a month ago. We were able to call over and get records. CT scans negative for acute. Also had MRI Which showed remote infarcts but nothing acute. She also had imaging of her neck which showed surgical changes degenerative changes arthritis. Really no acute abnormality on the scans that were reviewed from [facility]. Patient reports that the medication has taken the edge off her headache and she is feeling a little bit better. Blood pressure is improved. She is sitting up in the bed eating some ice chips now. No other complaints at this time. She has a neurology appointment on July 13. I told her to return to the ER if anything worsens before then otherwise get to that appointment as scheduled. Patient expresses understanding and is comfortable with care plan for home. Differential Diagnosis Differential Diagnosis: Headache migraine stroke shingles Medical Records Medical records reviewed: Yes I reviewed the patient's medical records Lab Data Lab results reviewed: Yes I reviewed the patient's lab results Labs: Lab Results 06/25/23 Range/Units 13:32 WBC 6.8 (4.0-11.0) 10^3/uL RBC 4.88 (4.20-5.40) 10^6/uL Hgb 13.6 (12.0-16.0) g/dL Hct 44.9 (36.0-48.0) % MCV 92.0 (81.0-99.0) fL MCH 27.9 (26.7-34.0) pg MCHC 30.3 (29.9-35.2) g/dL RDW 17.2 H (11.0-15.0) % Plt Count 167 (150-450) 10^3/uL MPV 11.2 (9.5-13.5) fL Neut % (Auto) 71.8 (43.0-75.0) % Lymph % (Auto) 15.1 L (20.5-60.0) % Coleman % (Auto) 10.0 (1.7-12.0) % Eos % (Auto) 2.2 (0.9-7.0) % Baso % (Auto) 0.6 (0.2-2.0) % Neut # (Auto) 4.9 (1.4-6.5) 10^3/uL Lymph # (Auto) 1.0 L (1.2-3.8) 10^3/uL Coleman # (Auto) 0.7 (0.3-0.8) 10^3/uL Eos # (Auto) 0.2 (0.0-0.7) 10^3/uL Baso # (Auto) 0.0 (0.0-0.1) 10^3/uL Abs Immat Gran (auto) 0.02 (0.00-0.03) 10^3/uL Imm/Tot Granulo (auto) 0.3 (0.0-0.5) % Sodium 131 L (136-145) mmol/L Potassium 3.5 (3.5-5.1) mmol/L Chloride 90 L (98-107) mmol/L Carbon Dioxide 25.3 (21.0-32.0) mmol/L Anion Gap 19.2 BUN 27.0 H (7.0-18.0) mg/dL Creatinine 2.81 H (0.55-1.02) mg/dL Est GFR ( Amer) 20 L (>=60) Est GFR (Non-Af Amer) 16 L (>=60) BUN/Creatinine Ratio 9.6 Glucose 149 H (74-106) mg/dL Calcium 10.1 (8.5-10.1) mg/dL Total Bilirubin 0.5 (0.2-1.0) mg/dL AST 27 (15-37) U/L ALT 22 (14-59) U/L Alkaline Phosphatase 189 H (46-116) U/L Total Protein 8.0 (6.4-8.2) g/dL Albumin 3.1 L (3.4-5.0) g/dL Globulin 4.9 g/dL Albumin/Globulin Ratio 0.6 Discharge Plan Discharge Stand Alone Forms: Portal Instructions Chief Complaint: Headache Clinical Impression: Headache Patient Disposition: Home, Self-Care Time of Disposition Decision: 14:12 Mode of Transportation: Private Vehicle Prescriptions / Home Meds: No Action atorvastatin 40 mg tablet 40 mg PO BEDTIME furosemide 20 mg tablet 60 mg PO BID calcium acetate(phosphat bind) 667 mg capsule 667 mg PO TID citalopram 40 mg tablet 40 mg PO DAILY pantoprazole 40 mg tablet,delayed release (DR/EC) 40 mg PO DAILY pramipexole 0.5 mg tablet 0.5 mg PO QPM sennosides [senna] 8.6 mg tablet 8.6 mg PO BID multivitamin [Daily Multi-Vitamin] Tablet 1 tab PO DAILY docusate sodium [Colace] 100 mg capsule 100 mg PO BID aspirin [Adult Low Dose Aspirin] 81 mg tablet,delayed release (DR/EC) 81 mg PO DAILY oxycodone-acetaminophen 5-325 mg tablet 1 tab PO Q6H PRN (Reason: pain) insulin lispro [Humalog Tempo Pen(U-100)Insuln] 100 unit/mL insulin pen 1 sliding scale dose subcut USEASDIRECTD albuterol sulfate 0.63 mg/3 mL solution for nebulization 0.63 mg continuous nebulization Q4H PRN (Reason: shortness of breath or wheezing) acetaminophen [Arthritis Pain Relief (acetam)] 650 mg tablet extended release 650 mg PO Q8H PRN (Reason: pain) Trelegy Ellipta 100-62.5-25 mcg blister with device 1 inh inhalation DAILY ammonium lactate 12 % lotion 1 applic TOPICAL DAILY buspirone 10 mg tablet 10 mg PO BID metoprolol succinate 25 mg tablet extended release 24 hr 25 mg PO DAILY mexiletine 200 mg capsule 200 mg PO DAILY pregabalin 50 mg capsule 50 mg PO DAILY Print Language: Montenegrin Referrals: LILY DEL REAL [Primary Care Provider] - 1 week
[2023-06-25 14:02] LABS: Alanine Aminotransferase 22 U/L (14-59); Albumin Globulin Ratio 0.6; Albumin Level 3.1 g/dL (3.4-5.0); Alkaline Phosphatase 189 U/L (46-116); Anion Gap 19.2; Aspartate Amino Transferase 27 U/L (15-37); BUN Creatinine Ratio 9.6; Bilirubin Total 0.5 mg/dL (0.2-1.0); Calcium 10.1 mg/dL (8.5-10.1); Carbon Dioxide 25.3 mmol/L (21.0-32.0); Chloride 90 mmol/L (98-107); Estimated GFR (African America 20 (>=60); Estimated GFR (Non-African Ame 16 (>=60); Globulin 4.9 g/dL; Glucose 149 mg/dL (74-106); Potassium 3.5 mmol/L (3.5-5.1); Sodium 131 mmol/L (136-145)
[2023-06-25 14:45] VITALS: BP 105/50; PULSE 88; TEMP 36.6; O2SAT 93
== END 2023-06-25 14:56 | disposition home or self-care (01) ==
PROVIDERS: Emergency Provider Emergency Medicine; PCP Internal Medicine
DX: R51.9 Headache, unspecified (principal); F03.90 Unspecified dementia, unspecified severity, without behavioral disturbance, psychotic disturbance, mood disturbance, and anxiety; N18.6 End stage renal disease; E11.22 Type 2 diabetes mellitus with diabetic chronic kidney disease; Z98.1 Arthrodesis status; Z99.2 Dependence on renal dialysis; Z79.82 Long term (current) use of aspirin; Z79.899 Other long term (current) drug therapy; Z79.4 Long term (current) use of insulin; Z96.619 Presence of unspecified artificial shoulder joint; Z87.891 Personal history of nicotine dependence
CPT/HCPCS: 36415; 80053; 85025; 96374; 96375; 99284

== ENCOUNTER 2023-09-05 09:20 | Emergency (ER) | payer MEDICARE, SELFPAY ==
[2023-09-05] VITALS (25 sets, daily range): BP systolic 76–131; BP diastolic 37–54; PULSE 62–81; TEMP 36.7; O2SAT 99–100; BMI 24.0
--- NOTE | 2023-09-05 09:29 | ECG_ITS ---
The [facility] Test Date: 2023-09-05 Pat Name: ART GARCIA Department: Room: - Gender: Female [employer]: : 1945 Requested By: LILY DEL REAL Order Number: [id number] Reading MD: FERN CARREON Measurements Intervals [place] Rate: 67 P: -60 ND: 284 QRS: -13 QRSD: 116 T: -41 QT: 402 QTc: 417 Interpretive Statements [id number] Electronic atrial pacemaker 3334 Anterolateral myocardial infarction, age undetermined 3434 Septal myocardial infarction, age undetermined 9150 abnormal ECG Compared to ECG 03/31/2023 01:43:20 First degree AV block no longer present Left-axis deviation no longer present Myocardial infarct finding still present Electronically Signed On 09-05-2023 18:23:50 EDT by FERN CARREON
--- NOTE | 2023-09-05 09:29 | XR_ITS ---
The [address] [address] Patient Name: ART GARCIA MRN: [id number] date: 1945 Sex: F Assigned Patient Location: ER Current Patient Location: ER Accession/Order Number: [id number] Exam Date: 09/05/2023 09:50 Report Date: 09/05/2023 10:15 At the request of: CARLOS HALE Procedure: XR chest 1V EXAMINATION: XR chest 1V HISTORY: weak COMPARISON: XR chest 12/13/2022 FINDINGS: LUNGS: Moderate opacities projecting over the right lung base. Mild opacities obscuring the left lateral costophrenic angle. VASCULATURE: No increased pulmonary vasculature. PLEURA: No pneumothorax, effusion, or pleural thickening. CARDIAC: No cardiomegaly or cardiac silhouette abnormality. MEDIASTINUM: No visible mass or adenopathy. BONES: Prior right shoulder replacement. Advanced degenerative changes of left shoulder. OTHER: Cardiac pacer. XR/XR chest 1V IMPRESSION: 1. Moderate right and mild left basilar infiltrates. 2. Small pleural effusions cannot be excluded. Electronically authenticated by: ZEKE COSBY Date: 09/05/2023 10:15
--- NOTE | 2023-09-05 09:29 | ED_ITS ---
HPI HPI - General Adult General Chief complaint: Weakness Stated complaint: GENERAL WEAKNESS Time Seen by Provider: 09/05/23 09:24 Source: patient and medical record Mode of arrival: ambulance Limitations: no limitations History of Present Illness HPI narrative: 78-year-old female presents to the emergency department for generalized weakness. Today was her normal dialysis day and she was at dialysis. She had had over an hour of dialysis and she started to feel weak. They checked her blood pressure and it was low and she was given a fluid bolus. She feels much better now. She is just tired, she did not sleep well last night. She does not have any pain and has not had a fever. She is not short of breath and has had no vomiting. Related Data Home Medications ?Medication ?Instructions ?Recorded ?Confirmed aspirin 81 mg tablet,delayed 81 mg PO DAILY 12/13/22 09/05/23 release (Adult Low Dose Aspirin) atorvastatin 40 mg tablet 40 mg PO BEDTIME 12/13/22 09/05/23 calcium acetate(phosphat bind) 667 667 mg PO TID 12/13/22 09/05/23 mg capsule citalopram 40 mg tablet 20 mg PO DAILY 12/13/22 09/05/23 docusate sodium 100 mg capsule 100 mg PO BID 12/13/22 09/05/23 (Colace) furosemide 20 mg tablet 60 mg PO BID 12/13/22 09/05/23 insulin lispro 100 unit/mL 1 sliding scale dose subcut 12/13/22 03/31/23 subcutaneous pen (Humalog Tempo USEASDIRECTD Pen (U-100) Insulin) multivitamin (Daily Multi-Vitamin 1 tab PO DAILY 12/13/22 09/05/23 tablet) oxycodone-acetaminophen 5 mg-325 1 tab PO Q6H PRN pain 12/13/22 09/05/23 mg tablet pantoprazole 40 mg tablet,delayed 40 mg PO DAILY 12/13/22 09/05/23 release pramipexole 0.5 mg tablet 0.5 mg PO QPM 12/13/22 09/05/23 sennosides 8.6 mg tablet (senna) 8.6 mg PO BID 12/13/22 03/31/23 acetaminophen 650 mg 650 mg PO Q8H PRN pain 01/06/23 09/05/23 tablet,extended release (Arthritis Pain Relief (acetaminophen) ER) albuterol sulfate 0.63 mg/3 mL 0.63 mg continuous nebulization 01/06/23 09/05/23 solution for nebulization Q4H PRN shortness of breath or wheezing fluticasone fur. 100 mcg-umeclid 1 inh inhalation DAILY 01/06/23 09/05/23 62.5 mcg-vilant 25 mcg inhalat.powder (Trelegy Ellipta) buspirone 10 mg tablet 10 mg PO BID 03/31/23 09/05/23 metoprolol succinate 25 mg 12.5 mg PO DAILY 03/31/23 09/05/23 tablet,extended release 24 hr mexiletine 200 mg capsule 200 mg PO TID 03/31/23 09/05/23 pregabalin 50 mg capsule 50 mg PO DAILY 03/31/23 09/05/23 Allergies Allergy/AdvReac Type Severity Reaction Status Date / Time gabapentin Allergy Severe swollen Verified 09/05/23 09:25 tongue lisinopril AdvReac Intermediate Cough Verified 09/05/23 09:25 Opioid HPI Opioid Management Most Recent Opioid Data: Last Pain Scale 4 09/05/23 09:43 Last ED Pain Assessment 09/05/23 09:43 Review of Systems ROS Narrative A ten point review of systems is negative except as noted above. [facility] Medical History (Updated 09/05/23 @ 13:01 by Ezequiel Lozoya MD) Dementia ?F03.90 - Unspecified dementia, unspecified severity, without behavioral disturbance, psychotic disturbance, mood disturbance, and anxiety (ICD-10) Type 2 diabetes mellitus with hyperglycemia ?E11.65 - Type 2 diabetes mellitus with hyperglycemia (ICD-10) End stage renal disease on dialysis ?N18.6 - End stage renal disease (ICD-10) ?Z99.2 - Dependence on renal dialysis (ICD-10) Renal failure, chronic ?N18.9 - Chronic kidney disease, unspecified (ICD-10) Symptomatic bradycardia ?R00.1 - Bradycardia, unspecified (ICD-10) Laceration of scalp ?S01.01XA - Laceration without foreign body of scalp, initial encounter (ICD- 10) Contusion of multiple sites ?T07.XXXA - Unspecified multiple injuries, initial encounter (ICD-10) Syncope ?R55 - Syncope and collapse (ICD-10) Fracture of fifth metatarsal bone of left foot ?S92.352A - Displaced fracture of fifth metatarsal bone, left foot, initial encounter for closed fracture (ICD-10) Surgical History Hx of shoulder replacement ?Z96.619 - Presence of unspecified artificial shoulder joint (ICD-10) Family History Father Family history of CHF (congestive heart failure) Family history of cancer Family history of hypertension Family history of stroke Mother Family history of cancer Family history of diabetes mellitus Brother Family history of cancer Social History Within the past year, how often did you have a drink containing alcohol: never Score interpretation: A score less than 3 is consistent with normal alcohol consumption. 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 Highest level of school completed/degree received: high school graduate Are you now , , , , never or living with a partner: In a typical week, how many times do you talk on the telephone with family, friends, or neighbors: twice per week How often do you get together with friends or relatives: twice per week How often do you attend congregation or confucianist services: never Do you belong to any clubs or organizations such as congregation groups unions, fraternal or athletic groups, or school groups: no Total score: 1 Score interpretation: A score of less than or equal to 1 indicates the most socially isolated. Little interest or pleasure in doing things: not at all Feeling down, depressed, or hopeless: not at all Feel stressed/tense/nervous/anxious/difficulty sleeping: only a little Exam Narrative Exam Narrative: Nurses note and vital signs reviewed and patient is not hypoxic. General: The patient appears well and in no apparent distress. Patient is resting comfortably on cart. Skin: Warm, dry, no pallor noted. There is no rash noted. Head: Normocephalic, atraumatic. She is wearing a cervical collar because she had a neck fracture and had surgery about 3 months ago. Eye: Normal conjunctiva, no drainage Ears, Nose, Mouth, and Throat: oral mucosa is moist. Nares patent. Cardiovascular: Regular Rate and Rhythm, paced rhythm on the monitor Respiratory: Patient is in no distress, no accessory muscle use, lungs are clear to auscultation, no wheezing, rales or rhonchi Back: non-tender GI: Soft and nontender Musculoskeletal: The patient has no evidence of calf tenderness, no pitting edema, symmetrical pulses noted bilaterally Neurological: A&O x4, normal speech Psychiatric: Cooperative Constitutional Vital Signs, click to edit/add: Last Vital Signs Temp 98.1 F 09/05/23 09:22 Pulse 71 09/05/23 12:15 Resp 7 L 09/05/23 12:15 BP 104/45 L 09/05/23 12:30 Pulse Ox 100 09/05/23 12:15 O2 Del Method Nasal Cannula 09/05/23 09:22 O2 Flow Rate 3 09/05/23 09:22 Course Vital Signs Vital signs: Vital Signs Temperature 98.1 F 09/05/23 09:22 Pulse Rate 78 09/05/23 09:22 Respiratory Rate 16 09/05/23 09:22 Blood Pressure 113/47 L 09/05/23 09:22 Pulse Oximetry 100 09/05/23 09:22 Oxygen Delivery Method Nasal Cannula 09/05/23 09:22 Oxygen Delivery Flow Rate 3 09/05/23 09:22 Temperature 98.1 F 09/05/23 09:22 Pulse Rate 71 09/05/23 12:15 Respiratory Rate 7 L 09/05/23 12:15 Blood Pressure 104/45 L 09/05/23 12:30 Pulse Oximetry 100 09/05/23 12:15 Oxygen Delivery Method Nasal Cannula 09/05/23 09:22 Oxygen Delivery Flow Rate 3 09/05/23 09:22 Medical Decision Making MDM Narrative Medical decision making narrative: Blood work is nonspecific. She was given 2 doses of 10 mg of midodrine and feels much better. Her blood pressure has improved and she was ambulatory without symptoms and is able to be released. She is requesting to go back to dialysis. Findings were discussed with the patient. Differential Diagnosis Differential Diagnosis: Hypovolemia, medication induced hypotension Lab Data Lab results reviewed: Yes I reviewed the patient's lab results Labs: Lab Results 09/05/23 09/05/23 Range/Units 09:20 10:32 WBC 9.4 (4.0-11.0) 10^3/uL RBC 3.73 L (4.20-5.40) 10^6/uL Hgb 11.1 L (12.0-16.0) g/dL Hct 35.6 L (36.0-48.0) % MCV 95.4 (81.0-99.0) fL MCH 29.8 (26.7-34.0) pg MCHC 31.2 (29.9-35.2) g/dL RDW 15.4 H (11.0-15.0) % Plt Count 264 (150-450) 10^3/uL MPV 10.5 (9.5-13.5) fL Neut % (Auto) 67.0 (43.0-75.0) % Lymph % (Auto) 16.0 L (20.5-60.0) % [place] % (Auto) 13.7 H (1.7-12.0) % Eos % (Auto) 2.6 (0.9-7.0) % Baso % (Auto) 0.4 (0.2-2.0) % Neut # (Auto) 6.3 (1.4-6.5) 10^3/uL Lymph # (Auto) 1.5 (1.2-3.8) 10^3/uL [place] # (Auto) 1.3 H (0.3-0.8) 10^3/uL Eos # (Auto) 0.3 (0.0-0.7) 10^3/uL Baso # (Auto) 0.0 (0.0-0.1) 10^3/uL Abs Immat Gran (auto) 0.03 (0.00-0.03) 10^3/uL Imm/Tot Granulo (auto) 0.3 (0.0-0.5) % Sodium 135 L (136-145) mmol/L Potassium 3.5 (3.5-5.1) mmol/L Chloride 93 L (98-107) mmol/L Carbon Dioxide 28.8 (21.0-32.0) mmol/L Anion Gap 16.7 BUN 37.0 H (7.0-18.0) mg/dL Creatinine 3.46 H (0.55-1.02) mg/dL Est GFR ( Amer) 16 L (>=60) Est GFR (Non-Af Amer) 13 L (>=60) BUN/Creatinine Ratio 10.7 Glucose 146 H (74-106) mg/dL Calcium 9.9 (8.5-10.1) mg/dL Troponin I High Sens 58.2 H* 58.5 H* (4.0-51.3) pg/mL ECG Data Attestation: I personally reviewed and interpreted this ECG as follows: (EKG on my interpretation shows paced rhythm.) Discharge Plan Discharge Stand Alone Forms: Portal Instructions Chief Complaint: Weakness Clinical Impression: Hypotension Patient Disposition: Home, Self-Care Time of Disposition Decision: 13:01 Condition: Good Mode of Transportation: Private Vehicle Prescriptions / Home Meds: No Action atorvastatin 40 mg tablet 40 mg PO BEDTIME furosemide 20 mg tablet 60 mg PO BID calcium acetate(phosphat bind) 667 mg capsule 667 mg PO TID citalopram 40 mg tablet 20 mg PO DAILY pantoprazole 40 mg tablet,delayed release (DR/EC) 40 mg PO DAILY pramipexole 0.5 mg tablet 0.5 mg PO QPM sennosides [senna] 8.6 mg tablet 8.6 mg PO BID multivitamin [Daily Multi-Vitamin] Tablet 1 tab PO DAILY docusate sodium [Colace] 100 mg capsule 100 mg PO BID aspirin [Adult Low Dose Aspirin] 81 mg tablet,delayed release (DR/EC) 81 mg PO DAILY oxycodone-acetaminophen 5-325 mg tablet 1 tab PO Q6H PRN (Reason: pain) insulin lispro [Humalog Tempo Pen(U-100)Insuln] 100 unit/mL insulin pen 1 sliding scale dose subcut USEASDIRECTD albuterol sulfate 0.63 mg/3 mL solution for nebulization 0.63 mg continuous nebulization Q4H PRN (Reason: shortness of breath or wheez ing) acetaminophen [Arthritis Pain Relief (acetam)] 650 mg tablet extended release 650 mg PO Q8H PRN (Reason: pain) Trelegy Ellipta 100-62.5-25 mcg blister with device 1 inh inhalation DAILY buspirone 10 mg tablet 10 mg PO BID metoprolol succinate 25 mg tablet extended release 24 hr 12.5 mg PO DAILY mexiletine 200 mg capsule 200 mg PO TID pregabalin 50 mg capsule 50 mg PO DAILY Print Language: Ethiopian Instructions: Hypotension (ED) Referrals: LILY DEL REAL [Primary Care Provider] - 1 week
[2023-09-05 09:39] LABS: Basophils Percent Auto 0.4 % (0.2-2.0); Eosinophils Absolute Auto 0.3 10^3/uL (0.0-0.7); Eosinophils Percent Auto 2.6 % (0.9-7.0); Hematocrit 35.6 % (36.0-48.0); Hemoglobin 11.1 g/dL (12.0-16.0); Immature Granulocytes Abs Auto 0.03 10^3/uL (0.00-0.03); Immature Granulocytes Pct Auto 0.3 % (0.0-0.5); Lymphocytes Absolute Auto 1.5 10^3/uL (1.2-3.8); Mean Corpuscular HGB Conc 31.2 g/dL (29.9-35.2); Mean Corpuscular Hemoglobin 29.8 pg (26.7-34.0); Mean Corpuscular Volume 95.4 fL (81.0-99.0); Mean Platelet Volume 10.5 fL (9.5-13.5); Monocytes Absolute Auto 1.3 10^3/uL (0.3-0.8); Monocytes Percent Auto 13.7 % (1.7-12.0); Neutrophils Absolute Auto 6.3 10^3/uL (1.4-6.5); Platelet Count 264 10^3/uL (150-450); Red Blood Count 3.73 10^6/uL (4.20-5.40); Red Cell Distribution Width 15.4 % (11.0-15.0); White Blood Count 9.4 10^3/uL (4.0-11.0)
[2023-09-05 09:54] LABS: Anion Gap 16.7; BUN Creatinine Ratio 10.7; Calcium 9.9 mg/dL (8.5-10.1); Carbon Dioxide 28.8 mmol/L (21.0-32.0); Chloride 93 mmol/L (98-107); Estimated GFR (African America 16 (>=60); Estimated GFR (Non-African Ame 13 (>=60); Glucose 146 mg/dL (74-106); Potassium 3.5 mmol/L (3.5-5.1); Sodium 135 mmol/L (136-145)
[2023-09-05 09:58] LABS: Troponin I High Sensitivity 58.2 pg/mL (4.0-51.3)
[2023-09-05] MEDS: MIDODRINE HCL 5 MG TABLET 10 MG PO ×2 (10:23→12:08)
[2023-09-05 11:21] LABS: Troponin I High Sensitivity 58.5 pg/mL (4.0-51.3)
== END 2023-09-05 13:36 | disposition home or self-care (01) ==
PROVIDERS: Emergency Provider Emergency Medicine; PCP Internal Medicine
DX: I95.9 Hypotension, unspecified (principal); Z99.2 Dependence on renal dialysis; Z87.891 Personal history of nicotine dependence
CPT/HCPCS: 36415; 71045; 80048; 84484; 85025; 93005; 99285

== ENCOUNTER 2023-11-09 23:14 | Emergency (ER) | payer MEDICARE, SELFPAY ==
[2023-11-09 23:16] VITALS: BP 126/60; PULSE 63; TEMP 36.7; O2SAT 100; BMI 25.2
[2023-11-09 23:29] VITALS: O2SAT 98
--- NOTE | 2023-11-09 23:50 | CT_ITS ---
The [address] [address] Patient Name: ART GARCIA MRN: [id number] date: 1945 Sex: F Assigned Patient Location: ER Current Patient Location: .[facility] Accession/Order Number: [id number] Exam Date: 11/09/2023 23:57 Report Date: 11/10/2023 02:17 At the request of: NIKUNJ MADDOX Procedure: CT cervical spine wo con EXAM: CT head/brain wo con, CT cervical spine wo con INDICATION: 78 years old; Female. Trauma. TECHNIQUE: CT Head (ax/cor/sag reformats). Ionizing radiation dose reduced via iterative reconstruction/FBP blend and body size kV/mA adjustment. Comparison: Head CT dated 08/15/2022. Motion artifacts degrade the images of the brain with extensive streak artifacts degrading the cervical study. FINDINGS: POSTOPERATIVE CHANGES: None. BRAIN PARENCHYMA: No intraparenchymal or extra-axial hemorrhage. No mass effect. No midline shift or herniation. Subtle patchy low-density is seen in the white matter without mass effect. Patchy low-density is seen in the white matter without mass effect. VENTRICLES/EXTRA-AXIAL SPACES: Enlarged, consistent with atrophy. SINUSES/MASTOIDS: The visualized sinuses are clear although the maxillary and ethmoid sinuses are not completely included. Mastoids and middle ears are clear. MSK: No displaced or depressed calvarial fracture is present. Extracranial soft tissue swelling is seen in the posterior parietal region. No subjacent calvarial fracture is present. OTHER: No hyperdense intraluminal thrombus is present. There are vascular calcifications. TECHNIQUE: CT imaging of the cervical spine was performed. IV contrast: None. Dose reduction techniques were achieved by using automated exposure control and/or adjustment of mA and/or kV according to patient size and/or use of iterative reconstruction technique. COMPARISON: Cervical CT dated 05/04/2020. FINDINGS: POSTOPERATIVE CHANGES: Allowing for streak artifacts, there is redemonstration of the ACDF at the C5-C6 level. There is solid trabeculated bony fusion. Additional solid fusion along the anterior margin of the vertebral bodies is seen at C6-C7 and C7-T1. These findings have progressed as compared to the prior study. There is new postsurgical changes present extending from the right occipital condyle through C3 on the right and through the lateral mass of C1-C3 on the left. There is a type II dens fracture. No trabeculation is seen. There are no prior examinations for comparison the regarding this finding. The portion of the construct superiorly on the right projects through the medial cortex of the right occipital condyle and extends into the lateral margin of the foramen magnum. There is lucency noted associated with the screw and there is additional note of passage of the right-sided screw extending through the body of C2 into the atlantoaxial joint. There is C1 fracture initially noted without any trabeculated fusion. There is anterior displacement of C2 in relation to C3. Cerclage wire fixation and screw fixation is seen on the left at the level of the C4, C5, C6, and C7 spinous processes and lamina. Is noted posteriorly ALIGNMENT: Nonspecific straightening the normal cervical curve. There is anterior positioning of C2 on C3, C3 on C4, and C4 on C5. C2 is positioned 2.3 mm anterior to C3, C3 is positioned 2.9 mm anterior to C4, and C4 is positioned 2.04 mm anterior to C5. COMPRESSION FRACTURES: As described above, there is type II dens fracture without trabeculated fusion. Additional fracture of the anterior arch of C1 is present. Instrument fixation is noted with description of the construct described in the postoperative section of this report. There is solid fusion of the facets on the left at C2-C3, C3-C4, C4-C5, C5-C6, and C6-C7. Fusion of the right-sided facets is noted at C2-C3 and C3-C4. PREVERTEBRAL SOFT TISSUES: Normal. CRANIOCERVICAL JUNCTION: As noted above, there is a screw passing through the right occipital condyle with breakthrough of the medial wall the condyle. Fractures of C1 and C2 are noted. Metallic construct fixation as described above. No solid trabeculated fusion. POSTERIOR FOSSA: Cerebellar tonsils are above the foramen magnum. Disc levels: C2-C3: Anterior displacement of C2 in relation to C3. Construct noted as described above. Fusion is present bilaterally and the facets. C3-C4: Anterior displacement as described above. Fusion is seen in the facets bilaterally. C4-C5: Anterior displacement as described above. Fusion of the left facets. Screw fixation and cerclage wires on the left. C5-C6: ACDF with solid trabeculated fusion. Fusion of the facets on the left with screw fixation and cerclage wire. C6-C7: Solid fusion of the anterior aspect of the vertebral body. The disc space is fused. Partial fusion of the left facets with screw and wire fixation. C7-T1: Fusion of the anterior aspects of the vertebral bodies with bulky bridging anterior osteophytes. Wire and screw fixation on the left. Broad-based disc osteophyte complex. Moderate central canal stenosis. UPPER THORACIC SPINE: At T1-T2, facet degeneration. This is worse on the right than the left. Beam hardening artifacts. Anterior osteophytes. Mild right-sided foraminal stenosis. OTHER: No thyroid nodule or adenopathy. Dense vascular calcification. CT/CT cervical spine wo con IMPRESSION: 1. No acute intracranial abnormality. No hemorrhage or mass effect. 2. Nonspecific white matter changes. 3. Atrophy. 4. Extracranial soft tissue swelling in the posterior parietal region. 5. Intracranial and extra cranial vascular calcifications. 6. Type II dens fracture with fracture the anterior arch of C1. There is metallic construct from the occipital condyles through C3 on the right and C1-C3 on the left. Please see the postoperative section regarding concerns of construct stability 7. Multilevel wire and screw fixation along the left of the spinous processes and lamina from C4 through C7. Fusion of the facets on the left is noted. The.. Solid fusion at C5-C6 with ACDF with solid fusion at C6-C7 and solid fusion of the anterior aspect of the vertebral bodies from C6 through T1. 8. Multilevel cervical spondylosis. Please see the detailed discussion of the individual levels in the body of this report. A telephone call regarding the findings in examination was made to and acknowledged by Dr. Maddox in the emergency department at 2:05 AM on 11/10/2023. Electronically authenticated by: PENNIE BRIZUELA Date: 11/10/2023 02:17
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
--- OUTSIDE RECORDS SUMMARY | 2023-11-10 00:22 | XMS_ITS | CCD ---
Author Organization [facility] Care Team Providers Care Life Skills Coordinator Volunteer Name Role Phone COLBY KAY Admitting Unavailable MARCUS BELCHER Referring Unavailable LILY DEL REAL Primary Care Unavailable YOVANI AYON Attending Unavailable RI Procedure Practitioner Unavailab CHELI Brar Surgeon Unavailable Lily Del Real Primary Care Provider Narinder Toussaint Attending Provider Adalberto Lewis Attending Provider Narinder Toussaint Unavailable Geronimo Graham Unavailable Tessie Walker Unavailable Maxime Bhatti Unavailable PETER Del Real Primary Care Provider [phone] FERNANDO Walker Attending Provider MD Geronimo Graham Other Provider RAFAEL Banks Other Provider UnavailRAFAEL Garcia Other Provider Unavailable MD David South Other Provider FERNANDO Walker Other Provider MD Ronald Gutierrez F Other Provider MD Maxime Bhatti Other Provider MD Annette Tenorio Admit Provider MD Annette Tenorio Attending Provider [phone] MD Yamileth Levi II Other Provider [phone] MD Geronimo Graham Attending Provider PETER Del Real Primary Care Provider MD Geronimo Graham Other Provider RAFAEL Banks Other Provider UnavailRAFAEL Garcia Other Provider Unavailable MD David South Other Provider FERNANDO Walker Other Provider MD Ronald Gutierrez Other Provider MD Maxime Bhatti Other Provider MD Annette Tenorio Admit Provider MD Annette Tenorio Attending Provider [phone] MD Yamileth Levi II Other Provider MD Geronimo Graham Attending Provider [phone] MD Maxime Bhatti Attending Provider PETER Del Real Primary Care Provider [phone] MD Azar Palmer Jr Emergency Provider MD Gary Almaguer Admit Provider MD Gary Almaguer M Attending Provider MD Narinder Toussaint Other Provider MD Wood Zavala Other Provider MD Jackson De Santiago Other Provider MD Godwin Larios Other Provider MD Geronimo Graham Other Provider MD Simone Godyo Attending Provider PETER Del Realel Primary Care Provider MD Geronimo Graham Attending Provider MD Maxime Bhatti Attending Provider PETER Del Realel Primary Care Provider MD Azar Palmer Jr Emergency Provider MD Gary Almaguer Admit Provider MD Narinder Toussaint Other Provider MD oWod Zavala Other Provider MD Jackson De Santiago Other Provider [phone] MD Godwin Larios Other Provider MD Geronimo Graham Other Provider MD Simone Godoy Attending Provider MD Maxime Bhatti Attending Provider [phone] DO Horacio Moreno Emergency Provider [phone] MD Jamal Schaefer Admit Provider MD Wilmer Azevedo Other Provider MD Teresa Pagan Attending Provider [phone] LILY DEL REAL Admitting Unavailable DEL REAL, DR BAUTISTA Attending Unavailable DEL REAL, DR BAUTISTA Consulting Unavailable DEL REAL, DR BAUTISTA Primary Care Unavailable ZIEBKG, DR ZEKE Irvin Consulting Unavailable NASIMA, DR BAUTISTA Primary Care [...] Unavailable NASIMA, DR BAUTISTA Primary Care Unavailable HOKavita ., DR TENA Admitting Unavailable HOY ., DR TENA Attending Unavailable HOKavita ., DR TENA Consulting Unavailable ALEA, DR ZEKE Irvin Consulting Unavailable NADERER, DR JULIUS Early Consulting Unavailable MARKER ., DR SANCHEZ Consulting Unavailable TOMASA ., JOSE Consulting Unavailable NASIMA, DR BAUTISTA Primary Care Unavailable FAWWAD, BARNARD H Admitting Unavailable FAWWAD, BARNARD H Attending Unavailable HOKavita ., DR TENA Consulting Unavailable WEST, DR GENARO Vasquez Consulting Unavailable ZIEBER, DR ZEKE Irvin Consulting Unavailable PAUL, ELHAM Consulting Unavailable TOMASA ., JOSE Consulting Unavailable ALMA, BARNARD H Consulting Unavailable ALEXEI, DR JULIUS Early Admitting Unavailable NADEREAlbaro, DR JULIUS Early Attending Unavailable NASIMA, DR BAUTISTA Primary Care Unavailable WEST, DR GENARO Vasquez Consulting Unavailable SAMSA ., KIMBERLY Procedure Practitioner Unavailab jennyfer COSBY, DR ZEKE Irvin Consulting Unavailable NADERER, DR JULIUS Early Consulting Unavailable SAMSA ., KIMBERLY Consulting Unavailable YOVANNYYOLIE PURVIS Consulting Unavailable TOMASA ., JOSE Consulting Unavailable FAYOSHI, BARNARD H Consulting Unavailable GENARO AMOS Consulting Unavailable DARAMOLA, NIKI Consulting Unavailable SAÚL ENCARNACION Consulting Unavailable NASIMA, DR BAUTISTA Consulting Unavailable NASIMA, DR BAUTISTA Primary Care Unavailable SAMSA ., KIMBERLY Attending Unavailable SAMSA ., KIMBERLY Admitting Unavailable SAMSA ., KIMBERLY Consulting Unavailable NASIMA, DR BAUTISTA Primary Care Unavailable CATHLEEN, NIKUNJ Consulting Unavailable CATHLEEN, NIKUNJ Attending Unavailable CATHLEEN, [...] AZIZ Admitting Unavailable BAKHOUS, AZIZ Attending Unavailable BAKHOUS, AZIZ Consulting Unavailable NASIMA, DR BAUTISTA Primary Care Unavailable NASIMA, DR BAUTISTA Primary Care Unavailable ALEA, DR ZEKE Irvin Consulting Unavailable SAMSA ., KIMBERLY Attending Unavailable SAMSA ., KIMBERLY Admitting Unavailable SAMSA ., KIMBERLY Consulting Unavailable Nasima II, Dr. Lily Elizabeth Primary Care Dorota vailable Del Real II, Dr. Lily Elizabeth Primary Care Dorota vailable Nasima II, Dr. Lily Elizabeth Primary Care Dorota vailable Nasima, II Lily Primary Care Provider MD Azar Palmer Jr Emergency Provider MD Gary Almaguer Admit Provider MD Gary Almaguer Attending Provider [phone] PETER Del Real Primary Care Provider MD Azar Palmre Jr Emergency Provider MD Gary Almaguer Admit Provider MD Narinder Toussaint Other Provider MD Wood Zavala Other Provider MD Jackson De Santiago Other Provider MD Godwin Larios Other Provider MD Geronimo Graham Other Provider DO Carlton Mtz Attending Provider [phone] MD Edie Michel Other Provider DO Horacio Moreno Emergency Provider DO Pennie Love Admit Provider DO Pennie Love Attending Provider DO Horacio Moreno Emergency Provider DO Pennie Love Admit Provider MD Teresa Pagan Attending Provider [phone] MD Edie Michel Attending Provider PROVIDER, UNKNOWN Attending Unavailable PROVIDER, UNKNOWN Admitting Unavailable PETER Del Real Primary Care Provider MD Azar Palmer Jr Emergency Provider MD Gary Almaguer Admit Provider [phone] MD Narinder Toussaint Other Provider MD Wood Zavala Other Provider MD Jackson De Santiago Other Provider [phone] MD Godwin Larios Other Provider MD Geronimo Graham Other Provider DO Carlton Mtz Attending Provider MD Edie Michel Other Provider DO Horacio Moreno Emergency Provider DO Pennie Love Admit Provider [phone] MD Teresa Pagan Attending Provider MD Edie Michel Attending Provider MD Moo Villanueva Other Provider MD Jamal Schaefer Admit Provider [phone] MD Annette Tenorio Attending Provider LILY DEL REAL Primary Care Physician DO Carlton Mtz Admit Provider MD Tatiana Loya Attending Provider PETER Del Real Primary Care Provider MD Edie Michel Other Provider MD Wood Zavala Other Provider MD Moo Villanueva Other Provider MD Narinder Toussaint Other Provider MD Azar Palmer Jr Emergency Provider MD Wood Zavala Attending Provider MD Marcel Arreaga Emergency Provider MD Jamal Schaefer Attending Provider [phone] PETER Del Real Primary Care Provider MD Moo Villanueva Other Provider MD Edie Michel Other Provider MD Narinder Toussaint Other Provider DO Chi Henderson Emergency Provider [phone] MD Teresa Pagan Admit Provider MD Teresa Pagan Attending Provider [phone] PETER Del Real Primary Care Provider [phone] DO Chi Henderson Emergency Provider MD Teresa Pagan Admit Provider MD Gary Almaguer Attending Provider MD Geronimo Graham Other Provider DO Danny Mcclelland Other Provider MD Maxime Bhatti Other Provider PETER Del Realel Primary Care Provider MD Wood Zavala Attending Provider DO Chi Henderson Emergency Provider [phone] MD Teresa Pagan Admit Provider MD Gary Almaguer Attending Provider MD Geronimo Graham Other Provider LonnieDO Danny seo Other Provider MD Maxime Bhatti Other Provider MD Azar Palmer Jr Emergency Provider DO Lily Eldridge A Primary Care Provider MD Pennie Levin Emergency Provider [phone] PETER Del Real Lily Primary Care Provider [phone] NELI Giles-COMPUTATIONAL THEORY SCIENTIST-C Xiomara Gallegos Attending Provider MD Gillian Mcgregor Emergency Provider MD Tatiana Loya Admit Provider MD Tatiana Loya Attending Provider [phone] [facility] Other Provider UnavailMD Seth Alejandre Other Provider FERNANDO Downey Other Provider MD Narinder Toussaint Other Provider FERNANDO Hernandez Other Provider Unavailable MD Wood Zavala Other Provider PETER Del Realel Primary Care Provider MD Gillian Mcgregor Emergency Provider MD Tatiana Loya Admit Provider MD Narinder Toussaint Other Provider FERNANDO Hernandez Other Provider Unavailable MD Wood Zavala Other Provider MD Geronimo Graham Other Provider Clonch, CSTFA Teofilo Other Provider UnavailMD Seth Alejandre Other Provider FERNANDO Downey Other Provider DO Lexi Carlson Attending Provider MD Tasia Luther Other Provider MD Quintin Johnson Other Provider NELI Chacon Other Provider DO J Carlos House Jr Other Provider MD Paul Eli Other Provider PETER Del Real Primary Care Provider MD Pennie Levin Emergency Provider [phone] NELI Giles-COMPUTATIONAL THEORY SCIENTIST-C Xiomara Gallegos Attending Provider MD Gillian Mcgregor Emergency Provider MD Tatiana Loya Admit Provider MD Narinder Toussaint Other Provider FERNANDO Hernandez Other Provider Unavailable MD Wood Zavala Other Provider MD Geronimo Graham Other Provider Clonch, CSTFA Teofilo Other Provider UnavailMD Seth Alejandre Other Provider FERNANDO Downey Other Provider DO Lexi Carlson Attending Provider MD Tasia Luther Other Provider MD Quintin Johnson Other Provider NELI Chacon Other Provider Lacy Harry DO Paradise L Other Provider MD Paul Eli Other Provider MD Quintin Johnson Admit Provider MD Quintin Johnson Attending Provider MED Aponte Other Provider Unavailable MED Shah Other Provider Unavailable MED Moran Other Provider Unavailable MED Braxton Other Provider Unavailable MED Simmons Other Provider Unavailable MD Annette Tenorio Other Provider DO Ann Jj Other Provider MD Cesario Clifford Other Provider DO Carlton Mtz Other Provider MD Jamal Schaefer Other Provider MD Venecia Hawkins Other Provider MD Mendoza Seth Other Provider Unavailable NELI Herzog Other Provider [phone] MD Gabrielle Griffiths Other Provider MD Zev Morgan Other Provider MD Teresa Pagan Other Provider MD Erica Armenta Other Provider DO Pennie Love Other Provider MD Simone Godoy Other Provider MD Slick Cohn Other Provider CHANELLE Daniels-Tara Arenas Other Provider [phone] NELI Tan Other Provider Unavailable MD Celestino Bhagat Other Provider MD Christiano Quezada Other Provider MD Alphonse Medina Other Provider MD Gretchen Dickens Other Provider Unavailable MD Charles Dixon Other Provider DO Marjorie Meehan Other Provider DO Reese Frye Other Provider NELI Ferrera Other Provider DO Davide Rice Other Provider MD Gary Almaguer Other Provider NELI Arreaga Other Provider NELI Cardenas Other Provider MD Tatiana Loya Other Provider MD Lily Zhang Other Provider DO Eric Thomas Other Provider DO Aldo Yazid Other Provider MD Adam Angel P Other Provider MED Up Other Provider Unavailable Swati Velazquez Other Provider Unavailable DO Amanda Barron Other Provider MD Zeke Whitman Other Provider DO Jeannie Guillermo Other Provider HAILEY Meade- Elisabet Other Provider DO Danny Mcclelland Other Provider NELI Greene Other Provider [phone] FERNANDO Pierre Other Provider NELI Giles-COMPUTATIONAL THEORY SCIENTIST-C Xiomara Gallegos Other Provider PETER Del Real Primary Care Provider ANNETTE Perdomo Emergency Provider PETER Del Real Primary Care Provider [phone] FERNANDO Downey Other Provider Unavailab le DO Jeannie Guillermo Other Provider NELI Greene Other Provider MD Seth Weiss Attending Provider DO Taco Freed Emergency Provider [phone] Dolce, Julius Hull Attending Unavailable Dolce, Stephan R Referring Unavailable Dolce, Stephan R Attending Unavailable Dolce, Stephan R Admitting Unavailable Dolce, Julius Hull Attending Unavailable Dolce, Julius Hull Admitting Unavailable Dolce, Julius Hull Attending Unavailable Dolce, Julius Hull Admitting Unavailable Dolce, Julius Hull Attending Unavailable Dolce, Julius Hull Attending Unavailable Dolce, Julius Hull Attending Unavailable Dolce, Julius Hull Attending Unavailable Dolce, Stephan R Referring Unavailable Dolce, Julius Hull Attending Unavailable Dolce, Julius Hull Attending Unavailable Dolce, Julius Hull Attending Unavailable DavonMarcel Attending Unavailable Dolce, Julius Hull Consulting Unavailable Armando Munroe Admitting Unavailable Pastealbaro, Armando Cuevas Attending Unavailable Dolce, Julius Hull Consulting Unavailable Dolce, Julius Hull Consulting Unavailable Dolce, Julius uHll Consulting Unavailable Dolce, Julius Hull Consulting Unavailable Dolce, Julius Hull Consulting Unavailable Dolce, Julius Hull Consulting Unavailable Dolce, Julius Hull Consulting Unavailable Dolce, Julius Hull Consulting Unavailable Dolce, Julius Hull Consulting Unavailable Dolce, Julius Hull Consulting Unavailable MD Natalie Johnson Consulting Unavailable Natalie Johnson Consulting Unavailable Natalie Johnson Consulting Unavailable Areli, Pennie S Consulting Unavailable Skyler Singleton S Consulting Unavailable Areli, Pennie S Consulting Unavailable Areli, Pennie S Consulting Unavailable Blank, Pennie S Consulting Unavailable Blank, Pennie S Consulting Unavailable Blank, Pennie S Consulting Unavailable Blank, Pennie S Consulting Unavailable Blank, Pennie S Consulting Unavailable Blank, Pennie S Consulting Unavailable Blank, Pennie S Consulting Unavailable Dolce, DPM Julius Hull Consulting Unavailable Kamadana, Natalie Consulting Unavailable Armando Munroe Admitting Unavailable Armando Munroe Attending Unavailable MD Natalie Johnson Consulting Unavailable Natalie Johnson Consulting Unavailable Anand Johnsonapna Consulting Unavailable Areli Pennie S Consulting Unavailable Skyler Singleton S Consulting Unavailable Areli, Pennie S Consulting Unavailable Blank, Pennie S Consulting Unavailable Blank, Pennie S Consulting Unavailable Blank, Pennie S Consulting Unavailable Blank, Pennie S Consulting Unavailable Blank, Pennie S Consulting Unavailable Blank, Pennie S Consulting Unavailable Blank, Pennie S Consulting Unavailable Lily Del Real Primary Care Unavailable Carlton Mtz Attending Unavailabl e Daromar Obwendy M Admitting Unavailable Elashi, Essam Consulting Unavailable Lucas, Wood Consulting Unavailable Singhron Jackson Consulting Unavailable Keila Larioshash Consulting Unavailable Bakarnulfos, Aziz Consulting Unavailable Anand, Edie Consulting Unavailable Lily Del Real Primary Care Unavailable Moo Villanueva Consulting Tatiana Madrid Attending Unavailable Carlton Mtz Admitting Unavailabl e Anand, Edie Consulting Unavailable Elashi, Essam Consulting Unavailable Weiss, Seth E Attending Unavailable Del Real Lily Primary Care Unavailable Weiss, Seth E Admitting Unavailable Del RealGaneshel Primary Care Unavailable Pagan, Teresa Attending Unavailable Anand, Edie Consulting Unavailable Pennie Love Admitting Unavailable Lucas, Wood Consulting Unavailable Del RealGaneshel Primary Care Unavailable Daromar, Obaydah M Attending Unavailable Bakarnulfos, Aziz Consulting Unavailable Pagan, Teresa Admitting Unavailable Danny Mcclelland Consulting Unavailable Maxime Bhatti Consulting Unavailabl e Del RealLily Primary Care Unavailable Quintin Johnson Attending Unavailable Quintin Johnson Admitting Unavailable Melina Aponte Consulting Unavailable Maddie Shah Consulting Unavailable Ashley Moran Consulting Unavailable Maddie Braxton Consulting Unavailable Zuleyka Simmons Consulting Unavailable Annette Tenorio Consulting Unavailable Ann Jj Consulting Unavailable Cesario Clifford Consulting Unavailable Carlton Mtz Consulting Unavailabl Jamal Leonard Consulting Unavailable Jyoti Hawkinsa Consulting Unavailable Mendoza Seth Consulting Unavailable Nataliya Herzog Consulting Unavailabl e [place], Marwan Consulting Unavailable Zraik, Zev Consulting Unavailable Pagan, Teresa Consulting Unavailable Kathi, Safwan Consulting Unavailable Pennie Love Consulting Unavailable Simone Godoy Consulting Unavailable Slick Cohn Consulting Unavailable Marilyn Daniels Consulting Unavailable Johnny Tan Consulting Unavailable Celestino Bhagat Consulting Unavailab Christiano Davidson Consulting Unavailable Alphonse Medina Consulting Unavailable Gretchen Dickens Consulting Unavailable Charles Dixon Consulting Unavailable Marjorie Meehan Consulting Unavailable Reese Frye Consulting Unavailable Obika Edie Consulting Unavailable Davide Rice Consulting Unavailable Gary Almaguer Consulting Unavailable Malika Arreaga Consulting Unavailable Luba Cardenas Consulting Unavailable Alahmad, Alaa Consulting Unavailable Lily Zhang Consulting Unavailable Eric Thomas Consulting Unavailable Aldo, Yazid Consulting Unavailable Angel Medina Consulting Unavailable Lois Up Consulting Unavailable Elav, Essam Consulting Unavailable Runandrea, Lyndsay Consulting Unavailable Lucas, Wood Consulting Unavailable Bakarnulfos, Aziz Consulting Unavailable Swati Velazquez Consulting Unavailable Amanda Barron Consulting Unavailable Zeke Whitman Consulting Unavailable Jeannie Guillermo Consulting Unavailab Elisabet Rader Consulting Unavailable Danny Mcclelland Consulting Unavailable Krista Greene Consulting Unavailable Myla Pierre Consulting Unavailable Xiomara Giles Consulting Unavailable Seth Weiss Admitting Unavailable Seth Weiss Attending Unavailable Del RealGaneshel Primary Care Unavailable Ganesh Del Realel Primary Care Unavailable Edie Michel Admitting Unavailable Edie Michel Attending Unavailable Pennie Levin Attending Unavailable Del Real Lily Primary Care Unavailable Pennie Levin Admitting Unavailable Lily Del Real Primary Care Unavailable Constantine Perdomo Attending Unavailable Constantine Perdomo Admitting Unavailable Lily Del Real Primary Care Unavailable Taco Freed Attending Unavailable Taco Freed Admitting Unavailable Azar Palmer Jr Attending Unavailable Lily Eldridge Primary Care Unavailable Azar Palmer Jr Admitting Unavailable LucasWood Attending Unavailable Lucas, Wood Admitting Unavailable Ganesh Del Realel Primary Care Unavailable Lily Del Real Primary Care Unavailable Xiomara Giles Admitting Unavailable Xiomara Giles Attending Unavailable Annette Tenorio Attending Unavailable Lily Del Real Primary Care Unavailable Jamal Schaefer Admitting Unavailable Moo Villanueva Consulting UnaEdie Washington Consulting Unavailable Elashi, Essam Consulting Unavailable Del RealGaneshel Primary Care Unavailable Elashi, Essam Consulting Unavailable Alahmad, Alaa Admitting Unavailable Aldo, Yazid Attending Unavailable Mary, Lyndsay Consulting Unavailable Lucas, Wood Consulting Unavailable Bakarnulfos, Aziz Consulting Unavailable Teofilo Benedict Consulting Unavailable Seth Weiss Consulting Unavailable Downey, Cathleen Consulting Unavailable Kuhar, Tasia Consulting Unavailable Quintin Johnson Consulting Unavailable Turovskaya, Larissa Consulting Unavailable Lacy Harry, J Carlos L Consulting UnavailPaul Lorenzo Consulting Unavaila Lily Valdes Primary Care Unavailable Narinder Toussaint Consulting Unavailable BroomaGary irvin M Attending Unavailable Jamal Schaefer Admitting Unavailable DOLCE, STEPHAN R Attending Unavailable DOLCE, STEPHAN R Referring Unavailable DOLCE, STEPHAN R Attending Unavailable LILY DEL REAL Attending Unavailable HEMMERDIANNA Attending Unavailable DOLCE, JULIUS Hull Attending Unavailable DOLCE, JULIUS Hull Attending Unavailable DOLCE, JULIUS Hull Attending Unavailable DOLCE, STEPHAN R Attending Unavailable DOLCE, STEPHAN R Referring Unavailable HEMMER, DIANNA Mc Attending Unavailable LILY DEL REAL Attending Unavailable LILY DEL REAL Attending Unavailable JEANNIE GUILLERMO Attending Unavailable DOLCE, STEPHAN R Attending Unavailable DOLCE, STEPHAN R Referring Unavailable DOLCE, STEPHAN R Attending Unavailable REAL HERNANDEZ Attending Unavailable PETER Del Real Primary Care Provider [phone] MD Quintin Johnson Admit Provider MD Quintin Johnson Attending Provider Fay RN Melina Other Provider Unavailable MED Shah Other Provider Unavailable MED Moran Other Provider Unavailable MED Braxton Other Provider Unavailable MED Simmons Other Provider Unavailable MD Annette Tenorio Other Provider DO Ann Jj Other Provider MD Cesario Clifford Other Provider DO Carlton Mtz Other Provider [phone] MD Jamal Schaefer Other Provider MD Venecia Hawkins Other Provider MD Mendoza Seth Other Provider Unavailable NELI Herzog Other Provider [phone] MD Gabrielle Griffiths Other Provider [phone] MD Zev Morgan Other Provider MD Teresa Pagan Other Provider MD Erica Armenta Other Provider DO Pennie Love Other Provider MD Simone Godoy Other Provider MD Slick Cohn Other Provider ALBERTO DanielsC Marilyn Arenas Other Provider [phone] NELI Tan Other Provider Unavailable MD Celestino Bhagat Other Provider MD Christiano Quezada Other Provider MD Alphonse Medina Other Provider MD Gretchen Dickens Other Provider Unavailable MD Charles Dixon Other Provider DO Marjorie Meehan Other Provider DO Reese Frye Other Provider NELI Ferrera Other Provider DO Davide Rice Other Provider MD Juan C Almagueraytim Mc Other Provider NELI Arreaga Other Provider NELI Cardenas Other Provider MD Tatiana Loya Other Provider MD Lily Zhang Other Provider DO Eric Thomas Other Provider DO Lexi Carlson Other Provider MD Angel Medina P Other Provider Annel, MED Abreu Other Provider Unavailable MD Narinder Toussaint Other Provider FERNANDO Hernandez Other Provider Unavailable MD Wood Zavala Other Provider MD Geronimo Graham Other Provider Marcus Swait Other Provider Unavailable DO Amanda Barron Other Provider MD Zeke Whitman Other Provider DO Jeannie Guillermo M Other Provider Deshaun ANP- Elisabet Other Provider DO Danny Mcclelland M Other Provider NELI Greene M Other Provider [phone] CHANELLE Pierre-C Myla S Other Provider [phone] NELI Giles-COMPUTATIONAL THEORY SCIENTIST-C Xiomara E Other Provider ANNETTE Perdomo Emergency Provider MD Seth Weiss Attending Provider DO Taco Freed Emergency Provider [phone] Brody Alvarado Attending Unavailable Pennie Singleton Consulting Unavailable Julius Loyd Attending Unavailable Stephan Loyd Attending Unavailable DES, ANGELICA Referring Unavailable DES, ANGELICA Referring Unavailable DANIELNADEEM Referring Unavailable DES, ANGELICA Referring Unavailable TOSHIA WEN Attending Unavailable ELTAHAWY, CHELI Attending Unavailable JOSEFINAKEM Hull Admitting Unavailable RONA, THOMAS Attending Unavailable RONA, SARMED Referring Unavailable NADEEM SANCHEZ Referring Unavailable RYAN AHUJA Attending Unavailable DES, ANGELICA Referring Unavailable ELTAHAWY, CHELI Attending Unavailable NADEEM SANCHEZ Attending Unavailable DANIELNADEEM Attending Unavailable DES, ANGELICA Referring Unavailable STEENHOFF, ANALILIA Referring Unavailable STEENHOFF, ANALILIA Referring Unavailable NEISHA AVILA Referring UnavailNADEEM Cabrera Referring Unavailable TOSHIA WEN Attending Unavailable NADEEM SANCHEZ Referring Unavailable Julius Loyd Attending Unavailable Unavailable Unavailable Unavailable Allergies Allergy Classification Reported Allergen(s) Allergy Type Date of Onset Reaction(s) Facility Angiotensin Converting Enzyme (KARI) Inhibitors (1 source) Lisinopril Drug Allergy [address] [place] [address] Anti-Epileptic Agents (1 source) gabapentin Drug Allergy [address] [place] [address] (1 source) Benzapril; Translations: [Unknown] Propensity to adverse reactions (disorder) 2 [facility] Repository (20 sources) Lisinopril; Translations: [lisinopril] Drug Allergy 3 Cough (finding) [facility] (2 sources) benazepril; Translations: [BENAZEPRIL] Drug Allergy 0 [facility] Repository (20 sources) gabapentin; Translations: [gabapentin] Drug Allergy 3 Tongue swelling [facility]) [facility] [facility] (1 source) meloxicam; Translations: [MELOXICAM] Drug Allergy 6 [facility] Repository Medications Current Medications Medication Drug Class(es) Dates Sig (Normalized) Sig (Original) acetaminophen 325 mg / oxyCODONE hydrochloride 5 mg oral tablet (20 sources) Opioid Agonist Start: 09-29-2023 acetaminophen-oxyc odone 325 mg-5 mg Tab See Instructions, Refill(s) 0, 1 tab(s) Oral Start Date: 09/29/23 Status: Ordered Start: 04-16-2023 End: 07-22-2023 take 1 tablet by mouth every six hours Oxycodone-Acetaminophen (Percocet) 5-325 mg tablet Active 1 TAB PO Every 6 hours 20 July 22, 2023 Start: 04-16-2023 End: 07-22-2023 Start: 12-06-2022 End: 04-05-2023 take 1 tablet by mouth every four to six hours Oxycodone-Acetaminophen Discontinued 1 T AB PO EVERY 4-6 HOURS December 06, 2022 12:00am April 05, 2023 4:30pm Start: 12-06-2022 End: 04-05-2023 Start: 05-16-2020 End: 06-26-2021 take 1 tablet by mouth four times daily Oxycodone-Acetaminophen Discontinued 1 T AB PO Four times daily May 16, 2020 12:00am June 26, 2021 10:51am Start: 05-16-2020 End: 06-26-2021 albuterol 0.21 mg/ml inhalation solution (20 sources) beta2-Adrenergic Agonist Start: 06-26-2021 take 0.63 mg by inhalation four times daily Albuterol Sulfate Active 0.63 MG INHALATION Four times daily June 26, 2021 12:00am Start: 06-26-2021 Albuterol Sulfat e 0.63 MG/3ML as directed Inhalation Active ammonium lactate Top 12% Lotion (5 sources) Start: 09-29-2023 ammonium lacta te Top 12% Lotion 1 deborah, Topical, Refill(s) 0 Start Date: 09/29/23 Status: Ordered amoxicillin 500 mg / clavulanate 125 mg oral tablet (20 sources) Penicillin-class Antibacterial Start: 10-03-2023 Augmentin 500 mg-125 mg Tab 1 tab(s), Oral, q24hr, 10 tab(s), Refill(s) 0, take one daily and one after each dialysis session for 7 days total therapy, [facility]/pharmacy #[id number], 163, cm, 09/29/23 12:59:00 EDT, Height/Length Dosing, 61, kg, 09/29/23 12:59:00 EDT, Weight Dosing Start Date: 10/03/23 Status: Ordered Start: 10-29-2022 End: 10-31-2022 take 1 tablet by mouth three times daily Amoxicillin-Pot Clavulanate Discontinued 1 TAB PO Three times daily October 29, 2022 12:00am October 31, 2022 3:40pm Start: 10-29-2022 End: 10-31-2022 ANORO ELLIPTA 62.5 mcg/25 mcg (13 sources) take 1 puff(s) by inhalation once daily ANORO ELLIPTA 62.5 mcg/25 mcg 1 PUFF INHALATION DAILY Active aspirin 81 mg delayed release oral tablet (20 sources) Platelet Aggregation Inhibitor, Nonsteroidal Anti-inflammatory Drug Start: 0 take 81 mg by mouth once daily Aspirin Active 81 MG PO Daily November 25, 2019 12:00am Start: 11-19-2016 End: 11-25-2019 take 1 tablet by mouth once daily in the morning Aspirin Discontinued 81 MG PO Every morning November 19, 2016 12:00am November 25, 2019 8:05am 1 tablet PO daily atorvastatin 40 mg oral tablet (20 sources) HMG-CoA Reductase Inhibitor Start: 11-19-2016 take 1 tablet by mouth once daily atorvastatin 40 mg Tab 40 mg = 1 tab(s), Oral, Daily, Refills(s) 0 Start Date: 09/29/23 Status: Ordered busPIRone hydrochloride 10 mg oral tablet (20 sources) Start: 03-05-2023 take 1 tablet by mouth twice daily busPIRone 10 mg Tab 10 mg = 1 tab(s), Oral, BID, Refills(s) 0 Start Date: 09/29/23 Status: Ordered calcium acetate 667 mg oral capsule (20 sources) Start: 09-29-2023 take 3 capsules by mouth four times daily calcium acetate 667 mg oral capsule 2,001 mg = 3 cap(s), Oral, QID, Refills(s) 0 Start Date: 09/29/23 Status: Ordered Start: 02-26-2022 End: 07-22-2023 take 667 mg by mouth once at mealtime Calcium Acetate(Phosphat Bind) Discontinued 667 MG PO 3x/Day with meals 240 60 February 26, 2022 1:00am July 22, 2023 9:21am Start: 02-26-2022 End: 07-22-2023 calcium carbonate 1500 mg oral tablet (15 sources) Start: 06-21-2020 take 1 tablet by mouth every twenty-four hours Calcium 600 MG 1 tablet with meals Orally Once a day June, Active cholecalciferol 0.025 mg oral tablet (20 sources) Vitamin D Start: 11-25-2019 take 1 tablet by mouth once daily Cholecalciferol (Vitamin D3) (Vitamin D3) 25 mcg (1,000 unit) Tablet Active 25 MCG PO Daily November 25, 2019 12:00am take 1 tablet by darcy th every twenty-four hours Vitamin D (Cholecalciferol) 25 MCG (1000 UT) 1 tablet Orally Once a day Active citalopram 40 mg oral tablet (20 sources) Serotonin Reuptake Inhibitor Start: 09-29-2023 citalopram 40 mg Tab See Instructions, 1 tab(s), Refills(s) 0 Start Date: 09/29/23 Status: Ordered Start: 07-08-2023 take 20 mg by mouth once daily Citalopram Active 20 MG PO Daily July 08, 2023 12:00am Start: 11-25-2019 End: 07-08-2023 take 40 mg by mouth once daily Citalopram Discontinued 40 MG PO Daily November 25, 2019 12:00am July 08, 2023 11:49am Start: 11-25-2019 take 20 mg by mouth once daily Citalopram Active 20 MG PO Daily November 25, 2019 12:00am 1 ml darbepoetin theodore 0.04 mg/ml injection (20 sources) Erythropoiesis-stimulating Agent Start: 07-22-2023 take 40 ug intravenously once Darbepoetin Theodore In Polysorbat (Aranesp (In Polysorbate)) 40 mcg/mL Solution Active 40 MCG IV-PUSH Mo@1700 0 July 22, 2023 12:00am Start: 07-22-2023 Start: 12-29-2022 End: 06-30-2023 Darbepoetin Theodore In Polysorb at (Aranesp (In Polysorbate)) 60 mcg/mL Solution Discontinued 80 MCG IV every week December 29, 2022 1:00am June 30, 2023 12:55pm Start: 12-29-2022 Darbepoetin Al fa In Polysorbat (Aranesp (In Polysorbate)) 60 mcg/mL Solution Active MCG SOLUTION December 29, 2022 12:00am 12 hr dextromethorphan hydrobromide 30 mg / guaiFENesin 600 mg extended release oral tablet (8 sources) Uncompetitive U-qkmeav-M-aspartate Receptor Antagonist, Sigma-1 Agonist Start: 07-22-2023 take 1 tablet by mouth every twelve hours Dextromethorphan-Guaifenesin (Mucinex Dm) 30-600 mg Tablet Extended Release 12 Hr Active 1 TAB PO Every 12 hours 0 July 22, 2023 12:00am Start: 07-22-2023 diclofenac sodium 0.01 mg/mg topical gel (20 sources) Nonsteroidal Anti-inflammatory Drug Start: 10-31-2022 Diclofenac Sodium (Voltaren Arthritis Pain) 1 % Gel Active 4 GM TOPICAL Four times daily 0 October 31, 2022 12:00am docusate sodium 100 mg oral capsule (20 sources) Start: 09-29-2023 take 1 capsule by mouth twice daily docusate sodium 100 mg Cap 100 mg = 1 cap(s), Oral, BID, Refills(s) 0 Start Date: 09/29/23 Status: Ordered Start: 05-17-2022 End: 05-17-2022 take 1 capsule by mouth twice daily Docusate Sodium (Colace) 50 mg Capsule Discontinued 50 MG PO Twice daily May 17, 2022 12:00am May 17, 2022 4:45pm Start: 11-20-2021 End: 07-22-2023 take 100 mg by mouth twice daily Docusate Sodium Discontinued 100 MG PO Twice daily 60 November 20, 2021 12:00am July 22, 2023 9:21am Start: 11-16-2021 End: 02-22-2022 take 250 mg by mouth once daily Docusate Sodium Discon tinued 250 MG PO Daily November 16, 2021 12:00am February 22, 2022 8:28pm take 1 capsule by [facility] every twenty-four hours Colace 100 MG 1 capsule as needed Orally Once a day Active epoetin theodore-epbx 18740 UNT/ML Injectable Solution [Retacrit] (6 sources) Retacrit 10871 U NIT/ML as directed Injection Active 15 ml ferric carboxymaltose 50 mg/ml injection (1 source) Start: 05-16-2021 Injectafer 750 MG/15ML as directed Intravenous every 2 weeks for 14 days May, Active furosemide 20 mg oral tablet (20 sources) Loop Diuretic Start: 09-29-2023 furosemide 20 mg Tab See Instructions, 1 tab(s), Refills(s) 0 Start Date: 09/29/23 Status: Ordered Start: 07-22-2023 End: 07-22-2023 furosemide 20 mg Tab See Instructions, 1 tab(s), Refills(s) 0 Start Date: 09/29/23 Status: Ordered Start: 10-31-2022 End: 07-22-2023 take 60 mg by mouth twice daily at mealtime Furosemide Discontinued 60 MG PO Twice daily 180 30 October 31, 2022 12:00am July 22, 2023 9:21am Take twice a day with meals, at least 6 hours apart. Further refills or adjustments per Nephrology. Start: 11-19-2016 End: 10-31-2022 take 1 tablet by mouth once daily Furosemide Discontinued 60 MG PO Twice daily 60 November 20, 2021 12:37pm October 31, 2022 3:40pm 1 TABLET PO DAILY Start: 11-19-2016 End: 10-31-2022 take 1.5 tablets by mouth twice daily Furosemide 40 MG 1.5 tabs Orally Twice a day for 90 days Active take 1.5 tablets by mouth once daily Furosemide 40 MG 1.5 tabs Orally Once a day for 90 day(s) Active take 1 tablet by darcy th every twelve hours Furosemide 40 MG 1 tablet Orally bid for 90 day(s) Active heparin sodium, porcine 5000 unt/ml injectable solution (8 sources) Unfractionated Heparin, Anti-coagulant Start: 07-22-2023 inject 5000 [IU] by subcutaneous injection every twelve hours Heparin (Porcine) Active 5000 UNIT SUBCUT Every 12 hours 0 July 22, 2023 12:00am Insulin Aspart 100 UNIT/ML (9 sources) Insulin Aspart 100 UNIT/ML as directed Subcutaneous SLIDING SCALE BEFORE EACH MEAL Active Insulin Aspart U-100 (Novolog Flexpen U-100 Insulin) 100 unit/mL (3 mL) Insulin Pen (20 sources) Start: 07-22-2023 Insulin Aspart U-100 (Novolog Flexpen U-100 Insulin) 100 unit/mL (3 mL) Insulin Pen Active 0 UNIT SUBCUT 3X/Day with meals and bedtime 0 July 22, 2023 12:00am Start: 11-20-2021 End: 03-05-2023 inject 1 dose by subcutaneous injection once at mealtime Insulin Aspart U-100 (Novolog Flexpen U-100 Insulin) 100 unit/mL (3 mL) Insulin Pen Discontinued 1 sliding scale dose SUBCUT 3X/Day with meals and bedtime November 20, 2021 12:00am March 05, 2023 6:47pm Start: 11-20-2021 End: 03-05-2023 inject 1 dose [...] meals and bedtime November 20, 2021 12:00am 2.5 ml iron sucrose 20 mg/ml injection (3 sources) Parenteral Iron Replacement Start: 11-28-2021 take 20 mg intravenously every week Venofer 20 MG/ML as directed Intravenous every week for 35 days Nov, Active Start: 11-28-2021 take 20 mg intravenously every week Venofer 20 MG/ML as directed Intravenous every week for 35 days Nov, Active ammonium lactate 120 mg/ml topical lotion (8 sources) Start: 07-22-2023 Ammonium Lacta te Active 1 APPLIC TOPICAL Twice daily July 22, 2023 12:00am Start: 07-22-2023 lidocaine 0.04 mg/mg medicated patch (20 sources) Antiarrhythmic, Amide Local Anesthetic Start: 04-05-2023 End: 06-30-2023 apply 1 dose topically twice daily Lidocaine (Lidocaine Pain Relief) 4 % Adhesive Patch,Medicated Active 1 PATCH TOPICAL Twice daily June 30, 2023 12:00am Start: 04-05-2023 End: 06-30-2023 apply 1 dose topically three times daily Lidocaine (Lidocaine Pain Relief) 4 % Adhesive Patch,Medicated Discontinued 1 PATCH TOPICAL Three times daily April 05, 2023 1:00am June 30, 2023 12:55pm lubiprostone (3 sources) Chloride Channel Activator Start: 06-30-2023 take 1 capsule by mouth twice daily Lubiprostone (Amitiza) 8 mcg capsule Active 8 MCG PO Twice daily June 30, 2023 12:00am metoprolol tartrate 25 mg oral tablet (20 sources) beta-Adrenergic Madhu Start: 03-05-2023 take 12.5 mg by mouth once daily Metoprolol Tartrate Active 12.5 MG PO Daily March 05, 2023 1:00am Start: 03-05-2023 take 25 mg by mouth once daily Metoprolol Tartrate Active 25 MG PO Daily March 05, 2023 1:00am Start: 12-09-2022 End: 12-16-2022 take 12.5 mg by mouth twice daily Metoprolol Succinate Discontinued 12.5 MG PO Twice daily December 09, 2022 12:00am December 16, 2022 5:06pm mexiletine hydrochloride 200 mg oral capsule (20 sources) Antiarrhythmic Start: 03-07-2023 take 1 capsule by mouth every eight hours mexiletine 200 mg Cap See Instructions, 1 cap(s) Oral q8hr, Refills(s) 0 Start Date: 09/29/23 Status: Ordered midodrine hydrochloride 10 mg oral tablet (20 sources) alpha-Adrenergic Agonist Start: 09-29-2023 take 1 tablet by mouth three times daily midodrine 10 mg oral tablet 10 mg = 1 tab(s), Oral, TID, Refills(s) 0 Start Date: 09/29/23 Status: Ordered Start: 06-12-2023 End: 07-22-2023 take 1 dose by mouth once daily Midodrine Discontinued 5 MG PO Daily June 30, 2023 12:00am July 22, 2023 9:21am can give one dose at dialysis Start: 06-12-2023 End: 07-08-2023 take 1 dose by mouth once daily at bedtime Midodrine Discontinued 10 MG PO Three times daily June 12, 2023 12:00am July 08, 2023 11:49am do not give last dose of day after 6PM or within 4 hrs of bedtime Start: 10-29-2022 End: 04-01-2023 take 1 dose by mouth once daily at bedtime Midodrine Discontinued 5 MG PO Three times daily December 06, 2022 12:00am December 07, 2022 6:37am do not give last dose of day after 6PM or within 4 hrs of bedtime Start: 10-29-2022 End: 04-01-2023 take 5 mg by mouth three times daily Midodrine Discontinued 5 MG PO Three times daily December 07, 2022 12:00am April 01, 2023 7:45pm Multivitamin Adult - (15 sources) Multivitamin Murray lt - Orally Active Multivitamin preparation (20 sources) Start: 09-07-2019 take 1 tablet by mouth once daily Multivitamin Active 1 TAB PO Daily September 07, 2019 10:40am Start: 09-07-2019 End: 07-22-2023 take 1 tablet by mouth once daily Multivitamin Discontinued 1 TAB PO Daily September 07, 2019 12:00am July 22, 2023 9:21am Start: 09-07-2019 take 1 tablet by darcy th once daily Multivitamin Active 1 TAB PO Daily September 06, 2019 11:00pm Start: 09-07-2019 take 1 tablet by darcy th once daily Multivitamin Active 1 TAB PO Daily September 07, 2019 12:00am nystatin 100 unt/mg topical powder (20 sources) Polyene Antifungal Start: 07-22-2023 Nystatin (N ystop) 100,000 unit/gram Powder Active 1 APPLIC TOPICAL Twice daily 0 July 22, 2023 12:00am Start: 07-22-2023 Start: 01-02-2023 End: 03-05-2023 take [id number] [IU] by mouth four times daily Nystatin Discontinued [id number] UNIT PO Four times daily 140 7 January 02, 2023 1:00am March 05, 2023 6:48pm 12 hr orphenadrine citrate 100 mg extended release oral tablet (5 sources) Muscle Relaxant Start: 09-29-2023 orphenadrine 1 00 mg ER Tab See Instructions, 1 tab(s) Oral, Refills(s) 0 Start Date: 09/29/23 Status: Ordered polyethylene glycol 3350 68464 mg powder for oral solution (10 sources) Osmotic Laxative Start: 06-30-2023 Polyethylene Glycol 3350 (Clearlax) 17 gram/dose powder Active 17 GM PO Twice daily June 30, 2023 12:00am pramipexole dihydrochloride 0.5 mg oral tablet (20 sources) Nonergot Dopamine Agonist Start: 12-06-2022 take 1 tablet by mouth three times daily pramipexole 0.5 mg oral tablet 0.5 mg = 1 tab(s), Oral, TID, Refills(s) 0 Start Date: 09/29/23 Status: Ordered Start: 12-06-2022 End: 06-30-2023 take 0.5 mg by mouth once daily at bedtime Pramipexole Discontinued 0.5 MG PO Daily at bedtime April 01, 2023 1:00am June 30, 2023 12:52pm pregabalin 50 mg oral capsule (12 sources) Start: 09-29-2023 take 1 capsule by mouth once daily pregabalin 50 mg Cap 50 mg = 1 cap(s), Oral, Daily, Refills(s) 0 Start Date: 09/29/23 Status: Ordered Start: 04-01-2023 take 1 capsule by mo uth twice daily Pregabalin (Lyrica) 50 mg capsule Active 50 MG PO Twice daily April 01, 2023 1:00am Start: 04-01-2023 take 1 capsule by mo uth once daily Pregabalin (Lyrica) 50 mg capsule Active 50 MG PO Daily April 01, 2023 1:00am silver sulfADIAZINE 10 mg/ml topical cream (5 sources) Sulfonamide Antibacterial Start: 09-29-2023 silver sulfADIAZINE Top 1% Crm 20 gram See Instructions, Refill(s) 0, 1 deborah Topical Start Date: 09/29/23 Status: Ordered simethicone 80 mg chewable tablet (8 sources) Start: 07-22-2023 take 80 mg by mouth four times daily Simethicone Active 80 MG PO Four times daily 0 July 22, 2023 12:00am Trelegy Ellipta (2 sources) Trelegy Ellipta Active Trelegy Ellipta 100 mcg-62.5 mcg-25 mcg inhalation powder (5 sources) Start: 09-29-2023 take 1 puff(s) by inhalation once daily Trelegy Ellipta 100 mcg-62.5 mcg-25 mcg inhalation powder = 1 puff(s), Inhalation, Daily, Refills(s) 0 Start Date: 09/29/23 Status: Ordered Vitamin D (Cholecalciferol) 25 MCG (1000 UT) (6 sources) take 1 tablet by mouth once daily Vitamin D (Cholecalciferol) 25 MCG (1000 UT) 1 tablet Orally Once a day Active (20 sources) Start: 07-22-2023 Start: 06-30-2023 Start: 04-01-2023 Start: 03-05-2023 End: 04-01-2023 Start: 12-29-2022 End: 07-22-2023 Start: 05-17-2022 End: 12-29-2022 Start: 05-17-2022 End: 05-17-2022 Start: 11-20-2021 End: 03-05-2023 Start: 11-20-2021 End: 07-22-2023 Start: 09-07-2019 End: 07-22-2023 Completed/Discontinued Medications Medication Drug Class(es) Dates Sig (Normalized) Sig (Original) 8 hr acetaminophen 650 mg extended release oral tablet (16 sources) Start: 03-05-2023 End: 07-22-2023 take 1 tablet by mouth every twelve hours Acetaminophen (Arthritis Pain Reliever) 650 mg tablet extended release Discontinued 650 MG PO Q12H March 05, 2023 1:00am July 22, 2023 9:21am acetaminophen 325 mg / HYDROcodone bitartrate 7.5 mg oral tablet (20 sources) Opioid Agonist Start: 11-16-2021 End: 12-06-2022 take 1 tablet by mouth every six hours Hydrocodone-Acetami nophen Discontinued 1 TAB PO Q6H 8 2 February 26, 2022 December 06, 2022 10:42pm Start: 11-16-2021 End: 12-06-2022 Start: 05-18-2020 End: 11-16-2021 take 1 tablet by mouth every six hours Hydrocodone-Acetaminophen Discontinued 1 TAB PO Q6H 20 5 May 18, 2020 November 16, 2021 1:04pm Start: 05-18-2020 End: 11-16-2021 Start: 11-25-2019 End: 05-16-2020 Start: 11-25-2019 End: 05-16-2020 take 1 tablet by mouth every six hours Hydrocodone-Acetaminophen Discontinued 1 TAB PO Q6H 28 7 November 25, 2019 May 16, 2020 1:41pm amiodarone hydrochloride 200 mg oral tablet (20 sources) Antiarrhythmic Start: 12-16-2022 End: 01-02-2023 take 200 mg by mouth once daily Amiodarone Discontinued 200 MG PO Daily December 30, 2022 1:00am January 02, 2023 11:40am Start: 12-16-2022 End: 12-29-2022 take 400 mg by mouth twice daily Amiodarone Discontinued 400 MG PO Twice daily 56 December 16, 2022 1:00am December 29, 2022 11:22pm Start: 12-16-2022 End: 12-29-2022 take 400 mg by mouth once daily Amiodarone Discontinued 200 MG PO Daily December 16, 2022 1:00am December 29, 2022 11:22pm start after 400 mg twice daily for 14 days baclofen 10 mg oral tablet (20 sources) gamma-Aminobutyric Acid-ergic Agonist Start: 06-26-2021 End: 11-20-2021 take 10 mg by mouth once daily Baclofen Discontinued 10 MG PO Daily June 26, 2021 12:00am November 20, 2021 12:41pm take 1 tablet by mouth every twe lve hours Baclofen 10 MG 1 tablet as needed Orally Twice a day Active carvedilol 3.125 mg oral tablet (20 sources) alpha-Adrenergic Madhu, beta-Adrenergic Madhu Start: 10-31-2022 End: 12-09-2022 take 3.125 mg by mouth twice daily at mealtime Carvedilol Discontinued 3.125 MG PO Twice daily with meals October 31, 2022 12:00am December 09, 2022 1:38pm Start: 05-17-2022 End: 10-31-2022 take 12.5 mg by mouth twice daily Carvedilol Discontinued 12.5 MG PO Twice daily May 17, 2022 12:00am October 31, 2022 3:40pm Start: 11-25-2019 End: 05-17-2022 take 12.5 mg by mouth twice daily Carvedilol Discontinued 12.5 MG PO Twice daily November 25, 2019 12:00am May 17, 2022 3:59pm Start: 11-25-2019 End: 05-17-2022 take 1 tablet by darcy every twelve hours Coreg 12.5 MG 1 Tablet Orally Twice a day Active cephalexin 500 mg oral capsule (9 sources) Cephalosporin Antibacterial Start: 07-22-2023 End: 10-14-2023 take 500 mg by mouth once daily in the evening Cephalexin Discontinued 500 MG PO Every evening 3 July 22, 2023 12:00am October 14, 2023 9:10am Start: 07-22-2023 take 1 capsule by [facility] twelve hours Cephalexin 500 MG 1 capsule Orally TWICE A DAY Active cyclobenzaprine hydrochloride 5 mg oral tablet (20 sources) Muscle Relaxant Start: 04-05-2023 End: 06-30-2023 take 10 mg by mouth once daily at bedtime Cyclobenzaprine Discontinued 10 MG PO Daily at bedtime 0 April 05, 2023 1:00am June 30, 2023 12:53pm Start: 11-19-2016 End: 09-07-2019 take 1 tablet by mouth three times daily Cyclobenzaprine Discontinued TABLET November 19, 2016 12:00am September 07, 2019 10:42am 1 tablet PO TID Start: 11-19-2016 End: 09-07-2019 0.85 ml exenatide 2.35 mg/ml auto-injector (20 sources) GLP-1 Receptor Agonist Start: 05-16-2020 End: 02-22-2022 Exenatide Microspheres (Bydureon Bcise) 2 mg/0.85 mL auto-injector Discontinued 2 MG SUBCUT every week May 16, 2020 12:00am February 22, 2022 8:27pm Bydureon 2 MG as directed Subcutaneous Not-Taking Bydureon 2 MG as directed Subcutaneous Active ferrous sulfate 325 mg oral tablet (20 sources) Start: 09-07-2019 End: 05-16-2020 take 1 tablet by mouth once Ferrous Sulfate (Iron) 325 mg (65 mg iron) Tablet Discontinued 325 MG PO every Friday, Friday, and Saturday September 07, 2019 12:00am May 16, 2020 1:40pm Start: 09-07-2019 End: 05-16-2020 Qcvzsbmtwrc-Blddkmhej-Tlebyo er (20 sources) Anticholinergic, Corticosteroid, beta2-Adrenergic Agonist Start: 12-29-2022 End: 06-30-2023 Start: 12-29-2022 End: 06-30-2023 Vbcqyjsdvdy-Rapufoacf-Wywhfp er (Trelegy Ellipta) 100-62.5-25 mcg blister with device Discontinued 1 INH INHALATION Q24H December 29, 2022 1:00am June 30, 2023 12:54pm Start: 12-29-2022 Fluticasone-Um eclidin-Vilanter (Trelegy Ellipta) 100-62.5-25 mcg blister with device Active 1 INH INHALATION Q24H December 29, 2022 1:00am Start: 12-29-2022 Fluticasone-Um eclidin-Vilanter (Trelegy Ellipta) 100-62.5-25 mcg blister with device Active 1 INH INHALATION Q24H December 29, 2022 12:00am Start: 12-29-2022 Fluticasone-Um eclidin-Vilanter (Trelegy Ellipta) 100-62.5-25 mcg blister with device Active INHALATION December 29, 2022 12:00am Start: 12-06-2022 Start: 12-06-2022 Fluticasone-Um eclidin-Vilanter (Trelegy Ellipta) 100-62.5-25 mcg blister with device Active 2 EACH INHALATION Daily December 06, 2022 12:00am Start: 12-06-2022 Fluticasone-Um eclidin-Vilanter (Trelegy Ellipta) 100-62.5-25 mcg blister with device Active 1 EACH INHALATION Daily December 05, 2022 11:00pm Start: 12-06-2022 Fluticasone-Um eclidin-Vilanter (Trelegy Ellipta) 100-62.5-25 mcg blister with device Active 1 EACH INHALATION Daily December 06, 2022 12:00am glucose 0.4 mg/mg oral gel (20 sources) Start: 11-20-2021 End: 04-01-2023 Dextrose (Glutose-15) 40 % G el Discontinued 0.6 GM PO PRN 112.5 November 20, 2021 12:00am April 01, 2023 7:44pm Start: 11-20-2021 End: 04-01-2023 hydrALAZINE hydrochloride 50 mg oral tablet (20 sources) Arteriolar Vasodilator Start: 11-19-2016 End: 05-17-2022 take 1 tablet by mouth twice daily Hydralazine Discontinued 50 MG PO Three times daily November 19, 2016 12:00am May 17, 2022 4:16pm 1 tablet PO BID take 1 tablet by darcy th every eight hours hydrALAZINE HCl 50 MG 1 tablet with food Orally Three times a day for 90 Active Insulin Lispro (7 sources) Insulin Analog Start: 10-01-2023 End: 10-01-2023 Insulin Lispro Sliding Scale 0-10 Unit(s), Injection-Insulin, SubCutaneous, Start date 10/01/23 9:00:00 PM EDT Start Date: 10/01/23 Stop Date: 10/01/23 Status: Completed Start: 09-30-2023 End: 09-30-2023 Insulin Lispro Sliding Scale 0-10 Unit(s), Injection-Insulin, SubCutaneous, Start date 09/30/23 9:00:00 PM EDT Start Date: 09/30/23 Stop Date: 09/30/23 Status: Completed Start: 09-29-2023 insulin lispro 100 units/mL injectable solution SubCutaneous, Refills(s) 0 Start Date: 09/29/23 Status: Ordered Insulin Lispro (Humalog Kwikpen Insulin) 100 unit/mL insulin pen (12 sources) Start: 12-29-2022 End: 07-22-2023 inject 1 dose by subcutaneous injection at bedtime Insulin Lispro (Humalog Kwikpen Insulin) 100 unit/mL insulin pen Discontinued 1 sliding scale dose SUBCUT Before meals and at bedtime December 29, 2022 1:00am July 22, 2023 9:21am Start: 12-29-2022 inject 1 dose by sub cutaneous injection at bedtime Insulin Lispro (Humalog Kwikpen Insulin) 100 unit/mL insulin pen Active 1 sliding scale dose SUBCUT Before meals and at bedtime December 29, 2022 1:00am Start: 12-29-2022 inject 1 dose by sub cutaneous injection at bedtime Insulin Lispro (Humalog Kwikpen Insulin) 100 unit/mL insulin pen Active 1 sliding scale dose SUBCUT Before meals and at bedtime December 29, 2022 12:00am Start: 12-29-2022 Insulin Lispro (Humalog Kwikpen Insulin) 100 unit/mL insulin pen Active SUBCUT December 29, 2022 12:00am Insulin Lispro (Humalog U-10 0 Insulin) 100 unit/mL solution (19 sources) Start: 05-17-2022 End: 05-17-2022 Insulin Lispro [...] Discontinued 60 UNIT SUBCUT Twice daily May 02, 2022 12:00am May 17, 2022 4:07pm Start: 11-19-2016 End: 02-22-2022 inject 10 [IU] by subcutaneous injection once daily Insulin Nph And Regular Human Discontinued 10 UNIT SUBCUT Daily November 19, 2016 12:00am February 22, 2022 8:29pm Subq per instructions Start: 11-19-2016 End: 02-22-2022 24 hr isosorbide mononitrate 60 mg extended release oral tablet (20 sources) Nitrate Vasodilator Start: 05-02-2022 End: 10-31-2022 take 60 mg by mouth once daily Isosorbide Mononitrate Discontinued 60 MG PO Daily May 02, 2022 12:00am October 31, 2022 2:40pm Start: 11-19-2016 End: 02-26-2022 take 1 tablet by mouth once daily in the morning Isosorbide Mononitrate Discontinued 60 MG PO Every morning November 19, 2016 12:00am February 26, 2022 1:06pm 1 tablet PO daily loratadine 10 mg oral tablet (10 sources) Start: 06-30-2023 End: 07-08-2023 Loratadine (Allerclear) 10 mg tablet Discontinued 5 MG PO Daily June 30, 2023 12:00am July 08, 2023 11:49am losartan potassium 25 mg oral tablet (20 sources) Angiotensin 2 Receptor Madhu Start: 11-20-2021 End: 02-26-2022 take 25 mg by mouth once daily Losartan Discontinued 25 MG PO Daily November 20, 2021 12:00am February 26, 2022 1:06pm magnesium oxide 400 mg oral tablet (15 sources) Start: 03-07-2023 End: 04-01-2023 take 400 mg by mouth once daily Magnesium Oxide Discontinued 400 MG PO Daily March 07, 2023 1:00am April 01, 2023 7:45pm omeprazole 40 mg delayed release oral capsule (20 sources) Proton Pump Inhibitor Start: 09-07-2019 End: 05-02-2022 take 40 mg by mouth once daily Omeprazole Discontinued 40 MG PO Daily September 07, 2019 12:00am May 02, 2022 12:56pm ondansetron 4 mg disintegrating oral tablet (19 sources) Serotonin-3 Receptor Antagonist Start: 12-29-2022 End: 07-08-2023 take 4 mg by mouth every six hours Ondansetron Discontinued 4 MG PO Q6H December 29, 2022 1:00am July 08, 2023 6:02pm pantoprazole 40 mg delayed release oral tablet (20 sources) Proton Pump Inhibitor Start: 05-17-2022 End: 07-08-2023 take 40 mg by mouth once daily Pantoprazole Discontinued 40 MG PO Daily May 17, 2022 12:00am July 08, 2023 6:03pm Start: 05-02-2022 End: 05-17-2022 take 20 mg by mouth once daily Pantoprazole Discontinu ed 20 MG PO Daily May 02, 2022 12:00am May 17, 2022 4:04pm take 1 tablet by darcy th every twenty-four hours Pantoprazole Sodium 20 MG 1 tablet Orally Once a day Active predniSONE 10 mg oral tablet (20 sources) Start: 12-06-2022 End: 12-29-2022 take 10 mg by mouth once daily Prednisone Discontinued 10 MG PO Daily December 06, 2022 12:00am December 29, 2022 11:19pm 10 mg x3 days Start: 12-06-2022 Prednisone Act shea MG TABLET December 06, 2022 12:00am RETACRIT INJECTION (6 sources) Start: 02-08-2022 RETACRIT INJEC TION Jan, 1000 mL Sennosides (Senna) 8.6 mg tablet (20 sources) Start: 03-05-2023 End: 04-01-2023 take 1 tablet by mouth twice daily Sennosides (Senna) 8.6 mg tablet Discontinued 8.6 MG PO Twice daily March 05, 2023 1:00am April 01, 2023 7:47pm Start: 03-05-2023 End: 04-01-2023 take 1 tablet [...] Discontinued 8.6 MG PO Twice daily May 17, 2022 12:00am December 29, 2022 11:21pm Start: 05-17-2022 End: 12-29-2022 take 1 tablet [...] 25 MG PO Daily February 24, 2022 1:00am May 02, 2022 12:56pm Start: 11-19-2016 End: 09-07-2019 Spironolactone Discontinued TABLET November 19, 2016 12:00am September 07, 2019 10:44am temazepam 15 mg oral capsule (20 sources) Benzodiazepine Start: 11-19-2016 End: 09-07-2019 take 1 capsule by mouth once daily at bedtime Temazepam Discontinued November 19, 2016 12:00am September 07, 2019 10:45am 1 capsule PO daily at bedtime. Start: 11-19-2016 End: 09-07-2019 tiZANidine 4 mg oral capsule (20 sources) Central alpha-2 Adrenergic Agonist Start: 06-30-2023 End: 07-22-2023 take 1 capsule by mouth once daily at bedtime Tizanidine (Zanaflex) 4 mg capsule Discontinued 4 MG PO Daily at bedtime June 30, 2023 12:00am July 22, 2023 9:21am Start: 05-16-2020 End: 06-26-2021 take 4 mg by mouth three times daily Tizanidine Discontinued 4 MG PO Three times daily May 16, 2020 12:00am June 26, 2021 10:52am Triamcinolone (20 sources) Corticosteroid Start: 06-29-2018 Kenalog -40 mg June, 40 mg Start: 05-15-2017 Kenalog -40 mg May, Start: 11-28-2016 Kenalog -40 mg Nov, 40 mg 7 actuat umeclidinium 0.0625 mg/actuat / vilanterol 0.025 mg/actuat dry powder inhaler (20 sources) Anticholinergic, beta2-Adrenergic Agonist Start: 11-25-2019 End: 12-06-2022 Umeclidinium-Vilanterol (Anoro Ellipta) 62.5-25 mcg/actuation blister with device Discontinued 1 INH INHALATION Daily November 25, 2019 12:00am December 06, 2022 10:45pm Start: 11-25-2019 End: 12-06-2022 valsartan 160 mg oral tablet (20 sources) Angiotensin 2 Receptor Madhu Start: 02-24-2022 End: 10-31-2022 take 160 mg by mouth once daily Valsartan Discontinued 160 MG PO Daily May 02, 2022 12:50pm October 31, 2022 3:40pm Start: 02-24-2022 End: 10-31-2022 take 1 tablet by darcy th every [...] [NON-ST ELEVATION MYOCARDIAL INFARCT] Onset: 2 Chronic Administrative/social admission (17 sources) Other reduced mobility; Translations: [Impaired mobility and activities of daily living] Onset: 4 07-09-2023 Episodic Anxiety disorders (5 sources) Anxiety disorder, unspecified; Translations: [Mixed anxiety and depressive disorder] Onset: 2 06-30-2023 Chronic Bacterial infection; unspecified site (4 sources) Staphylococcal infectious disease; Translations: [Unspecified staphylococcus as the cause of diseases classified elsewhere] Onset: 4 Episodic Blindness and vision defects (20 sources) Eye / vision finding; Translations: [Unspecified [...] Chronic Complication of device; implant or graft (3 sources) Arteriovenous fistula stenosis; Translations: [Stenosis of other vascular prosthetic devices, implants and grafts, initial encounter] Chronic Conduction disorders (12 sources) Finding of cardiovascular device; Translations: [Encounter for adjustment and management of automatic implantable cardiac defibrillator] Onset: 4 03-07-2023 Chronic Congestive heart failure; nonhypertensive (20 sources) Congestive heart failure; Translations: [Heart failure, unspecified] Onset: 1 Resolved: 2 Chronic Coronary atherosclerosis and other heart disease (20 sources) Coronary arteriosclerosis; Translations: [Atherosclerotic heart disease of cheesh-na coronary artery without angina pectoris] Onset: 2 [...] 11-16-2021 Chronic Diseases of white blood cells (14 sources) Leukocytosis; Translations: [Elevated white blood cell count, unspecified] Onset: 3 12-09-2022 Chronic Disorders of lipid metabolism (20 sources) Mixed hyperlipidemia; Translations: [Mixed hyperlipidemia] Onset: 1 Resolved: 2 Chronic E Codes: Fall (20 sources) Unspecified fall, initial encounter; Translations: [Fall in home] Onset: 2 10-30-2022 Episodic Epilepsy; convulsions (20 sources) Neurological finding; Translations: [Unspecified convulsions] 03-05-2023 Episodic Esophageal disorders (3 sources) Gastro-esophageal reflux disease without esophagitis; Translations: [Gastroesophageal reflux disease] Onset: 2 06-30-2023 Chronic Essential hypertension (20 sources) Essential hypertension; Translations: [Essential (primary) hypertension] Onset: 3 11-16-2021 Chronic Gastrointestinal hemorrhage (19 sources) Gastrointestinal hemorrhage; Translations: [Hemorrhage of anus and rectum] 05-17-2022 Episodic Headache; including migraine (20 sources) Headache; Translations: [Headache] 05-02-2023 Episodic Headache; including migraine (1 source) Headache; including migraine; Translations: [Headache, unspecified] Onset: 4 Hypertension with complications and secondary hypertension (20 sources) Chronic kidney disease due to hypertension; Translations: [Hypertensive chronic kidney disease with stage 1 through stage 4 chronic kidney disease, or unspecified chronic kidney disease] Onset: 1 Resolved: 2 Chronic Infective arthritis and osteomyelitis (except that caused by tuberculosis or sexually transmitted disease) (4 sources) Osteomyelitis; Translations: [Osteomyelitis, unspecified] Onset: 4 06-30-2023 Chronic Malaise and fatigue (20 sources) Asthenia; Translations: [Other malaise] Onset: 3 11-20-2021 Episodic Mood disorders (18 sources) Major depressive disorder, single episode, unspecified; Translations: [Depression] Onset: 2 Chronic Occlusion or stenosis of precerebral arteries (20 sources) Bilateral stenosis of carotid arteries; Translations: [Occlusion and stenosis of bilateral carotid arteries] Onset: 4 04-02-2023 Chronic Osteoarthritis (20 sources) Degenerative joint disease of shoulder region; Translations: [Primary osteoarthritis, left shoulder] Onset: 2 10-30-2022 Chronic Other circulatory disease (14 sources) Acquired arteriovenous fistula aneurysm; Translations: [Arteriovenous fistula, acquired] Chronic Other circulatory disease (2 sources) Arteriovenous fistula, acquired Chronic Other circulatory disease (15 sources) Arteriovenous fistula; Translations: [Arteriovenous fistula, acquired] 10-29-2022 Chronic Other circulatory disease (16 sources) Low blood pressure; Translations: [Hypotension, unspecified] 03-05-2023 Episodic Other circulatory disease (9 sources) Chronic hypotension; Translations: [Other hypotension] 07-01-2023 Episodic Other diseases of kidney and ureters (15 sources) Hyperparathyroidism due to renal insufficiency; Translations: [Secondary hyperparathyroidism of renal origin] Chronic Other diseases of kidney and ureters (20 sources) Secondary hyperparathyroidism of renal origin; Translations: [Secondary hyperparathyroidism (of renal origin)] Onset: 1 Resolved: 2 Chronic Other diseases of kidney and ureters (20 sources) Secondary hyperparathyroidism; Translations: [Secondary hyperparathyroidism of renal origin] 12-07-2022 Chronic Other fractures (10 sources) Closed fracture axis, odontoid process ; Translations: [Unspecified displaced fracture of second cervical vertebra, initial encounter for closed fracture] 06-30-2023 Episodic Other fractures (10 sources) Fracture of odontoid process; Translations: [Anterior displaced Type II dens fracture, initial encounter for closed fracture] 06-30-2023 Episodic Other fractures (20 sources) Anterior displaced Type II dens fracture, initial encounter for closed fracture; Translations: [Closed fracture of second cervical vertebra] Onset: 4 06-30-2023 Episodic Other fractures (9 sources) Type II fracture of odontoid process of axis; Translations: [Anterior displaced Type II dens fracture, initial encounter for closed fracture] 07-05-2023 Episodic Other gastrointestinal disorders (8 sources) Oropharyngeal dysphagia; Translations: [Dysphagia, oropharyngeal phase] 07-09-2023 Episodic Other gastrointestinal disorders (9 sources) Dysphagia, oropharyngeal phase; Translations: [Dysphagia, oropharyngeal phase] Onset: 4 07-22-2023 Episodic Other hematologic conditions (20 sources) Raised cardiac enzyme or marker; Translations: [Other specified abnormalities of plasma proteins] 02-22-2022 Episodic Other hematologic conditions (6 sources) Other specified abnormalities of plasma proteins; Translations: [Other abnormal blood chemistry] 02-22-2022 Episodic Other injuries and conditions due to external causes (15 sources) Minor head injury; Translations: [Unspecified injury of head, initial encounter] 10-30-2022 Episodic Other injuries and conditions due to external causes (16 sources) Unspecified injury of head, initial encounter; Translations: [Head injury, unspecified] 10-29-2022 Episodic Other injuries and conditions due to external causes (14 sources) Injury of head; Translations: [Unspecified injury of head, initial encounter] 12-06-2022 Episodic Other lower respiratory disease (5 sources) Shortness of breath; Translations: [SHORTNESS OF BREATH] Onset: Episodic Other lower respiratory disease (6 sources) Dyspnea; Translations: [Dyspnea, unspecified] 08-01-2023 Episodic Other nervous system disorders (15 sources) Chronic pain; Translations: [Other chronic pain] Chronic Other nervous system disorders (8 sources) Cognitive deficit in communication skills; Translations: [Cognitive communication deficit] 07-09-2023 Chronic Other nervous system disorders (9 sources) Cognitive communication deficit; Translations: [Cognitive communication deficit] Onset: 4 07-22-2023 Chronic Other nervous system disorders (20 sources) Acute postoperative pain; Translations: [Other acute postprocedural pain] 05-18-2020 Episodic Other non-traumatic joint disorders (15 sources) Rotator cuff tear arthropathy; Translations: [Other specific arthropathies, not elsewhere classified, left shoulder] Chronic Other non-traumatic joint disorders (20 sources) Shoulder pain; Translations: [Pain in right shoulder] 11-16-2021 Episodic Other non-traumatic joint disorders (9 sources) Multiple joint pain; Translations: [Pain in unspecified joint] 12-30-2022 Episodic Other nutritional; endocrine; and metabolic disorders (15 sources) Body mass index 30+ - obesity; Translations: [Body mass index (BMI) 30.0-30.9, adult] Chronic Other nutritional; endocrine; and metabolic disorders (16 sources) Hypomagnesemia; Translations: [Hypomagnesemia] Onset: 3 03-07-2023 Chronic Other nutritional; endocrine; and metabolic disorders (7 sources) Hypomagnesemia; Translations: [Disorders of magnesium metabolism] Onset: 3 03-05-2023 Chronic Other skin disorders (9 sources) Tongue swelling; Translations: [Localized swelling, mass and lump, head] 12-30-2022 Episodic Ivory-; endo-; and myocarditis; cardiomyopathy (except that caused by tuberculosis or sexually transmitted disease) (20 sources) Cardiomyopathy; Translations: [Cardiomyopathy, unspecified] Onset: 4 11-20-2021 Chronic Pleurisy; pneumothorax; pulmonary collapse (20 sources) Pleural effusion; Translations: [Pleural effusion, not elsewhere classified] Onset: 2 11-16-2021 Episodic Residual codes; unclassified (20 sources) Sleep apnea; Translations: [Sleep apnea, unspecified] 11-16-2021 Chronic Residual codes; unclassified (12 sources) Sleep apnea, unspecified; Translations: [Unspecified sleep apnea] Onset: 4 11-20-2021 Chronic Residual codes; unclassified (1 source) Family history of malignant neoplasm of trachea, bronchus and lung; Translations: [FAM HX MALIG NEOPLSM TRACH BRON LNG] Onset: 3 Episodic Residual codes; unclassified (1 source) Family history of malignant neoplasm of digestive organs; Translations: [FAM HX MALIG NEOPLASM DIGESTIV ORGN] Onset: 3 Episodic Residual codes; unclassified (1 source) Family history of malignant neoplasm of other organs or systems; Translations: [FAM HX MALIG NEOPLASM OTH ORGN/SYS] Onset: 3 Episodic Residual codes; unclassified (1 source) Pain, unspecified; Translations: [Pain, unspecified] Onset: 4 Episodic Respiratory failure; insufficiency; arrest (adult) (20 sources) Dependence on supplemental oxygen; Translations: [Chronic hypoxemic respiratory failure] Onset: 2 12-09-2022 Chronic Respiratory failure; insufficiency; arrest (adult) (20 sources) Acute hypoxemic respiratory failure; Translations: [Acute respiratory failure with hypoxia] Onset: 2 11-16-2021 Episodic Skin and subcutaneous tissue infections (1 source) Cellulitis; Translations: [Cellulitis, unspecified] Onset: 4 Episodic Spondylosis; intervertebral disc disorders; other back problems (16 sources) Degeneration of intervertebral disc; Translations: [Other intervertebral disc degeneration, lumbar region] Onset: 2 Chronic Spondylosis; intervertebral disc disorders; other back problems (20 sources) Spinal stenosis, cervical region; Translations: [Neck pain] Onset: 2 04-01-2023 Episodic Syncope (20 sources) Syncope; Translations: [Syncope and collapse] Onset: 3 12-06-2022 Episodic Unclassified (1 source) CONTACT W/AND (SUSP) EXPOS COVID-19; Translations: [CONTACT W/AND (SUSP) EXPOS COVID-19] Onset: 2 Unclassified (1 source) Unspecified convulsions; Translations: [Unspecified convulsions] Onset: 4 Unclassified (2 sources) Ventricular tachycardia, unspecified; Translations: [Ventricular tachycardia, unspecified] Onset: 3 Unclassified (1 source) Other ventricular tachycardia; Translations: [Other ventricular tachycardia] Onset: 3 Unclassified (1 source) Ventricular tachycardia, unspecified; Translations: [Ventricular tachycardia, unspecified] Onset: 3 Unclassified (1 source) Contusion of other part of head, initial encounter; Translations: [Contusion of other part of head, initial encounter] Onset: 3 Unclassified (2 sources) Other ventricular tachycardia; Translations: [Other ventricular tachycardia] Onset: 09-20-202 3 Urinary tract infections (20 sources) Urinary tract infectious disease; Translations: [Urinary tract infection, site not specified] 02-22-2022 Episodic Past or Other Problems Problem Classification Problem Date Documented Da te Episodic/Chronic Cardiac dysrhythmias (17 sources) Bradycardia; Translations: [Bradycardia, unspecified] Onset: 12-30-2022 12-30-2022 Episodic Coronary atherosclerosis and other heart disease (1 source) Presence of coronary angioplasty implant and graft; Translations: [PRESENCE COR ANGPLSTY IMPLANT AND GRAFT] Onset: 11-22-2021 Episodic Deficiency and other anemia (20 sources) Anemia, unspecified; Translations: [Anemia, unspecified] Onset: 10-30-2022 11-20-2021 Episodic E Codes: Place of occurrence (1 source) Unspecified place in unspecified non-institutional (private) residence as the place of occurrence of the external cause; Translations: [Unspecified place in unspecified non-institutional (private) residence as the place of occurrence of the external cause] Onset: 10-30-2022 Episodic E Codes: Unspecified (1 source) Nosocomial condition; Translations: [NOSOCOMIAL CONDITION] Onset: 11-22-2021 Episodic Fever of unknown origin (20 sources) Fever; Translations: [Fever, unspecified] Onset: 12-30-2022 12-30-2022 Episodic Fluid and electrolyte disorders (20 sources) Hyponatremia; Translations: [Hypo-osmolality and hyponatremia] Onset: 10-29-2021 11-16-2021 Episodic Fracture of upper limb (1 source) Displaced fracture of acromial process, right shoulder, initial encounter for closed fracture; Translations: [DSPL FX ACRML RT SHLDR INIT MIRNA FX] Onset: 11-22-2021 Episodic Genitourinary symptoms and ill-defined conditions (9 sources) Hematuria, unspecified; Translations: [HEMATURIA UNSPECIFIED] Onset: 01-02-2021 Resolved: 07-25-2021 Episodic Other aftercare (1 source) FPC (current) use of aspirin; Translations: [SENIOR CONTROLS ENGINEER CURRENT USE OF ASPIRIN] Onset: 11-22-2021 Episodic Other aftercare (4 sources) FPC (current) use of insulin; Translations: [SENIOR CONTROLS ENGINEER CURRENT USE OF INSULIN] Onset: 11-22-2021 Episodic Other aftercare (1 source) Other oysterman (current) drug therapy; Translations: [OTH INTERMEDIATE CURRENT DRUG THERAPY] Onset: 11-22-2021 Episodic Other circulatory disease (7 sources) Hypotension, unspecified; Translations: [Hypotension, unspecified] Onset: 03-05-2023 03-05-2023 Episodic Other circulatory disease (19 sources) Other hypotension; Translations: [Chronic hypotension] Onset: 07-08-2023 07-08-2023 Episodic Other circulatory disease (1 source) Personal history of transient ischemic attack (TIA), and cerebral infarction without residual deficits; Translations: [Personal history of transient ischemic attack (TIA), and cerebral infarction without residual deficits] Onset: 05-27-2023 Episodic Other circulatory disease (2 sources) Orthostatic hypotension; Translations: [Orthostatic hypotension] Onset: 09-09-2022 Episodic Other fractures (10 sources) Unspecified displaced fracture of second cervical vertebra, initial encounter for closed fracture; Translations: [Closed fracture of second cervical vertebra] Onset: 07-01-2023 06-30-2023 Episodic Other fractures (1 source) Anterior displaced Type II dens fracture, subsequent encounter for fracture with delayed healing; Translations: [Anterior displaced Type II dens fracture, subsequent encounter for fracture with delayed healing] Onset: 07-08-2023 Episodic Other fractures (1 source) Unspecified displaced fracture of second cervical vertebra, subsequent encounter for fracture with delayed healing; Translations: [Unspecified displaced fracture of second cervical vertebra, subsequent encounter for fracture with delayed healing] Onset: 07-08-2023 Episodic Other injuries and conditions due to external causes (1 source) Heat syncope, initial encounter; Translations: [Heat syncope, initial encounter] Onset: 03-05-2023 Episodic Other lower respiratory disease (1 source) [...] breast; Translations: [Electrocardiogram abnormal] Onset: 05-31-2022 Episodic Comment on above: Rt great toe abscess Methicillin-Resistant Staphylococcus MRSA+ Other skin disorders (6 sources) Localized swelling, mass and lump, head; Translations: [Swelling, mass, or lump in head and neck] Onset: 12-30-2022 01-02-2023 Episodic Pneumonia (except that caused by tuberculosis or sexually transmitted disease) (3 sources) Pneumonia, unspecified organism; Translations: [PNEUMONIA UNSPECIFIED ORGANISM] Onset: 11-04-2021 Episodic Residual codes; unclassified (5 sources) Edema, unspecified; Translations: [EDEMA UNSPECIFIED] Onset: 01-02-2021 Resolved: 07-25-2021 Episodic Residual codes; unclassified (1 source) Other specified health status; Translations: [Other specified health status] Onset: 07-08-2023 Episodic Residual codes; unclassified (2 sources) Altered mental status, unspecified; Translations: [Altered mental status, unspecified] Onset: 01-06-2023 Episodic Residual codes; unclassified (2 sources) Disorientation, unspecified; Translations: [Disorientation, unspecified] Onset: 01-06-2023 Episodic Unclassified (16 sources) Failed encounter; Translations: [Missed dialysis] 04-01-2023 Unclassified (1 source) Ventricular tachycardia, unspecified; Translations: [Ventricular tachycardia, unspecified] Onset: 01-29-2023 Unclassified (1 source) Other ventricular tachycardia; Translations: [Other ventricular tachycardia] Onset: 01-29-2023 Results Test Name Value Interpretation Reference Range Facility Office Visiton 11-03-2023 Follow-up visit [id number] Wilbert Wilson 1945 F Date Provider Department Center 11/03/2023 [facility] No family history on file Level of Service:75119 [place] OFFICE/OUTPATIENT ESTABLISHED MOD MDM 30 MIN Normal [facility] Operative Reporton Operative Report Operative Report SURGERY DATE: 10/01/2023 PREOPERATIVE DIAGNOSIS: Infected wound with osteomyelitis acute of the proximal phalanx of the right hallux POSTOPERATIVE DIAGNOSIS: Infected wound with osteomyelitis acute of the proximal phalanx of the right hallux OPERATION: Incision and drainage with a partial first ray amputation right ANESTHESIA: General with a warming device SPECIMEN: Removed specimen for gross examination to Pathology which was bone and soft tissue ESTIMATED BLOOD LOSS: 5-10 cc COMPLICATIONS: None PROCEDURE: The patient was seen in the Ambulatory Surgery Unit. She was admitted to the hospital for infection/cellulitis from the right ulceration of her hallux. MRI was positive for a bone infection of the proximal phalanx and discussed having an amputation with the patient. She was seen in the Ambulatory Surgery Unit today. She was brought down to the Operating Room and placed in supine position. After administration of anesthesia, 10 cc of 2% lidocaine plain was then used to inject in a Zepeda block fashion of the right foot. The right foot was then prepped and draped under sterile technique. At this time a fishmouth incision was then made around just distal to the metatarsophalangeal joint of the first and linearly down the first metatarsal with full thickness down to the level of bone. The hallux was then disarticulated at the level of the metatarsophalangeal joint. At this time there was very minimal bleeding, just slight ooze, nothing to cauterize. At this time there was a little sign of a small cortical erosion on the metatarsal head. At this time, using a sagittal saw, removed the 1st metatarsal head and sesamoids, irrigated with copious amounts of normal saline. There was no purulence noted. There was no necrotic soft tissue and no other soft tissues showing any signs of any deep abscess or tunneling. Reapproximated the subcutaneous with 4-0 Vicryl and then reapproximated the skin edges with 3-0 nylon and then applied a Betadine-soaked Adaptic, Betadine-soaked gauze, ABD, Kerlix, Kari bandage. The patient tolerated the procedure and anesthesia well with vital signs intact to the right foot. She will return back to the floor and will keep her foot up and elevated. She can be partially weightbearing with assistance of a walker and postoperative shoe. The patient will follow up in the office on Friday of next week. She is to keep the dressing dry, clean, and intact. Stephan Loyd DPM ca Dictated: 10/01/2023 [id number] Transcribed: 10/01/2023 [facility] Comment on above: Result Comment: Elec tronically Signed By: Caro HAIRSTON, Stephan R\.br\Date and Time Signed: 10/22/23 08:21 EDT Coding Queryon 10-17-2023 Coding Query Coding Query From: Bora JOVEL, Emani To: Brody Alvarado III, DO; Cc: Audrey Lynch; Sent: 10/15/2023 06:53:17 EDT ! Subject: Coding Query Due Date/Time: 10/16/2023 06:53:00 EDT Caller Name: CINTHYA WILSON; Caller Number: Brendon , Braeden An abnormal pathology report was noted in the medical record. The pathology report indicated: Acute osteomyelitis of right big toe Final Diagnosis (Verified) A: RIGHT FOOT, BONE, EXCISION: - Reactive bone with no evidence of acute osteomyelitis identified. B: RIGHT FOOT BIG TOE, AMPUTATION: - Gangrenous ulcer and acute osteomyelitis. Also 09/30 op note-POSTOPERATIVE DIAGNOSIS: Infected wound with osteomyelitis acute of the proximal phalanx of the right hallux Based on your medical judgment, do you agree with the diagnosis documented in the op note and documented in the pathology report? [___] In response to this query: [___] Yes, I agree with the diagnosis documented by the sharepoint trainer/pathologist. [___] No, I do not agree with the diagnosis documented by the sharepoint trainer/pathologist. Reason: [___] Other (please specify): In responding to this request, please exercise your independent professional judgment. The fact that a question is asked does not imply that any particular answer is desired or expected. Thank you! Emani [phone] yes agree From: Brody Alvarado III, DO To: Bora JOVEL, Emani; Sent: 10/17/2023 07:12:30 EDT Subject: RE: Coding Query Caller Name: CINTHYA WILSON; Caller Number: Brendon , Braeden Normal [facility] Surgical Pathology Reporton 10-14-2023 Surgical Pathology Report [facility] [address] [place] [address]- Surgical Pathology Report Collected Date/Time: 10/01/2023 12:44 EDT Pathologist: Gopal Sampson MD Received Date/Time: 10/02/2023 08:35 EDT Caro HAIRSTON, Stephan Loyd DPM, Stephan Roth Surgical Pathology Report - 10/14/2023 13:31 EDT - Auth (Verified) Final Diagnosis A: RIGHT FOOT, BONE, EXCISION: - Reactive bone with no evidence of acute osteomyelitis identified. B: RIGHT FOOT BIG TOE, AMPUTATION: - Gangrenous ulcer and acute osteomyelitis. Diagnosis Comment _ (Electronic Signature) Yan. Camilla MD 10/14/2023 13:31 Clinical Information Pre-Op Diagnosis: Right foot infection Procedure: Right foot first ray amputation Specimen(s) Received A: Right foot bone B: Right foot big toe Gross Description A: Received in formalin labeled with patient name, number, and right foot bone is a osseous tissue measuring 2 x 2 x 1.5 cm. One surface is flat. The opposite surface is rounded and glistening. It is serially sectioned. Furnace Tapper sections are submitted in cassettes A1 and A2 after decalcification. B: Received in formalin labeled with patient name, number, and right foot big toe is a toe with an attached nail measuring 5.3 x 2.8 x 2.5 cm. Approximately 0.6 cm from the nail bed is a round raised castro thickened lesion measuring 1 x 0.8 cm with necrosis. The remainder of the skin is castro, thickened, and peeling. Furnace Tapper sections are submitted in three cassettes: B1 - Soft tissue B2 and B3 - Bone after decalcification (DC) DC:[facility] Microscopic Description A&B: Microscopic examination performed unless gross only specified. Normal [facility] Comment on above: Performed By: #### 4 [id number] #### [facility] Laboratory [address] [place] [address] Inpatient Clinical Summaryon 10-06-2023 Inpatient Clinical Summary Inpatient Clinical Summary [address] [address] Clinical Summary Person Information: Name: CINTHYA WILSON Age: 78 Years : 1945 Sex: Female PCP: LILY DEL REAL MD Marital Status: Single Phone: [phone] Race: White Ethnicity: Non- or Language: Iraqi Visit Id: Visit Reason: Skin problem; Toe pain-swelling; BIG TOE ON RIGHT FOOT INFECTED Speciality: Acuity: Enc Type: Inpatient Med Service: Medical Arrival: 09/29/2023 12:47:59 Discharge: 10/03/2023 15:20:00 Dispo Type: Home w/ Home Health Address: [address] [place] [phone] Provider Notes: Diagnosis: 2:Osteomyelitis of right foot; 3:Cellulitis; 4:CAD in cheesh-na artery; 5:Presence of automatic cardioverter/defibrillat or (AICD); 6:Chronic respiratory failure; 7:COPD mixed type; 8:Hypertension; 9:Hyperlipidemia; 10:Type 2 diabetes mellitus; 11:ESRD on dialysis; 12:Chronic GERD; 13:Anxiety and depression; Dependence on renal dialysis; Depression, unspecified; Unspecified staphylococcus as the cause of diseases classified elsewhere Problems Active MRSA (methicillin resistant staph aureus) culture positive (04/08/2023) Smoking Status: Never Smoker Functional Status: Sensory Deficits: History of Falls: Within last three months Mobility Assistance Prior to Admission: ADLs: Moderate assistance Current Level of Assistance for Self-Care/Mobility: Cognitive Status: Oriented x 3 Allergies lisinopril (Cough) gabapentin (Tongue swelling) Measurements: Height: 162.56 cm Weight: 73.1 kg Blood Pressure: 104 mmHg / 52 mmHg BMI: 25.2 kg/m2 Procedures Incision AND drainage Immunizations No Immunizations Documented This Visit Final Med List: acetaminophen-oxycodone (acetaminophen-oxycodone 325 mg-5 mg Tab) 1 tab(s) Oral. ammonium lactate topical (ammonium lactate Top 12% Lotion) 1 Application Topical. amoxicillin-clavulanate (Augmentin 500 mg-125 mg Tab) 1 Tablets By Mouth every 24 hours. take one daily and one after each dialysis session for 7 days total therapy. Refills: 0. atorvastatin (atorvastatin 40 mg Tab) 1 Tablets By Mouth every day. busPIRone (busPIRone 10 mg Tab) 1 Tablets By Mouth 2 times a day. calcium acetate (calcium acetate 667 mg oral capsule) 3 Capsules By Mouth 4 times a day. citalopram (citalopram 40 mg Tab) 1 tab(s). docusate (docusate sodium 100 mg Cap) 1 Capsules By Mouth 2 times a day. fluticasone/umeclidinium /vilanterol (Trelegy Ellipta 100 mcg-62.5 mcg-25 mcg inhalation powder) 1 Puffs Inhalation every day. furosemide (furosemide 20 mg Tab) 1 tab(s). insulin lispro (insulin lispro 100 units/mL injectable solution) Subcutaneous. mexiletine (mexiletine 200 mg Cap) 1 cap(s) Oral q8hr. midodrine (midodrine 10 mg oral tablet) 1 Tablets By Mouth 3 times a day. orphenadrine (orphenadrine 100 mg ER Tab) 1 tab(s) Oral. pramipexole (pramipexole 0.5 mg oral tablet) 1 Tablets By Mouth 3 times a day. pregabalin (pregabalin 50 mg Cap) 1 Capsules By Mouth every day. silver sulfADIAZINE topical (silver sulfADIAZINE Top 1% Crm 20 gram) 1 deborah Topical. Care Team Members: Attending Physician: Armando Munroe DO Consulting Physician: Joseph Johnson MD, M.D, Michael S Referring Physician: Follow up: With: Address: When: LILY DEL REAL [address] [place] [address] [facility] () Within 7 to 10 days Comments: Call for followup appointment With: Address: When: Stephan Loyd [facility], [facility], [address], [place] [address] [facility]: c/o [facility], [address] [place] [address], [place] [address] In 6 days 10/07/2023 Comments: post op visit Call for followup appointment Type Location [facility] Follow Up Visit (FT) [facility] 10/07/2023 3:00 PM 10/07/2023 3:45 PM Confirmed Patient Education Information: Osteomyelitis, Adult; Osteomyelitis, Adult Normal [facility] Inpatient Patient Summaryon 10-06-2023 Inpatient Patient Summary Inpatient Patient Summary [address] [address] Patient Discharge Instructions PERSON INFORMATION Name: CINTHYA WILSON Date of : 1945 Current Date: 10/06/2023 09:32:14 PHYSICIANS Admitting Physician: Armando Munroe DO Primary Care Physician: LILY DEL REAL MD PCP Comment: Discharge Diagnosis: 2:Osteomyelitis of right foot; 3:Cellulitis; 4:CAD in cheesh-na artery; 5:Presence of automatic cardioverter/defibrillat or (AICD); 6:Chronic respiratory failure; 7:COPD mixed type; 8:Hypertension; 9:Hyperlipidemia; 10:Type 2 diabetes mellitus; 11:ESRD on dialysis; 12:Chronic GERD; 13:Anxiety and depression; Dependence on renal dialysis; Depression, unspecified; Unspecified staphylococcus as the cause of diseases classified elsewhere Condition at Discharge: Stable CINTHYA WILSON has been given the following list of follow-up instructions, prescriptions, and patient education materials: PATIENT FOLLOW-UP INFORMATION Diet: Calorie Controlled- 2000 Calorie Diet Discharge Activity: Expect mild pain, Partial weight bearing Discharge Restrictions: No driving Wound Care Instructions: Do not remove dressing Remove Your Dressing In Days Call Your Doctor For: Persistent or heavy bleeding, Temperature above 100 degrees, Redness, swelling, or pus at operative site, Severe pain at the operative site IF UNABLE TO CONTACT YOUR PHYSICIAN AND YOU FEEL IT IS AN EMERGENCY, GO TO THE NEAREST EMERGENCY ROOM OR CALL 911 Home Treatment: Devices/Equipment: Oxygen, Rollator Walker Special Services: Additional Instructions: Primary Care Physician to provide the following pending test results: Blood culture Follow up: With: Address: When: LILY DEL REAL [address] [place] [id number] Business (1) Within 7 to 10 days Comments: Call for followup appointment With: Address: When: Stephan Loyd [facility], [facility], [address], [place] [address] [facility]: c/o [facility], [address] [place] [address], [facility] [place] [address] In 6 days 10/07/2023 Comments: post op visit Call for followup appointment In the event that this physician does not participate in your insurance network, please consult with your insurance company to find a nearby participating provider. Type Location [facility] Follow Up Visit (FT) [facility] 10/07/2023 3:00 PM 10/07/2023 3:45 PM Confirmed Comment: STEVE Fox JANICE, have received the attached patient education materials/instructions and have verbalized understanding: Patient Signature Date Clinican/Nurse Signature Date HERE ARE THE MEDICATION CHANGES THAT OCCURRED DURING YOUR HOSPITAL STAY New Medications [id number], [address], [place] [id number], [phone] amoxicillin-clavulanate (Augmentin 500 mg-125 mg Tab) 1 Tablets By Mouth every 24 hours. take one daily and one after each dialysis session for 7 days total therapy. Refills: 0. Last Dose: _Next Dose: _ Medications to Continue with No Changes Other Medications acetaminophen-oxycodone (acetaminophen-oxycodone 325 mg-5 mg Tab) 1 tab(s) Oral. Last Dose: _Next Dose: _ ammonium lactate topical (ammonium lactate Top 12% Lotion) 1 Application Topical. Last Dose: _Next Dose: _ atorvastatin (atorvastatin 40 mg Tab) 1 Tablets By Mouth every day. Last Dose: _Next Dose: _ busPIRone (busPIRone 10 mg Tab) 1 Tablets By Mouth 2 times a day. Last Dose: _Next Dose: _ calcium acetate (calcium acetate 667 mg oral capsule) 3 Capsules By Mouth 4 times a day. Last Dose: _Next Dose: _ citalopram (citalopram 40 mg Tab) 1 tab(s). Last Dose: _Next Dose: _ docusate (docusate sodium 100 mg Cap) 1 Capsules By Mouth 2 times a day. Last Dose: _Next Dose: _ fluticasone/umeclidinium /vilanterol (Trelegy Ellipta 100 mcg-62.5 mcg-25 mcg inhalation powder) 1 Puffs Inhalation every day. Last Dose: _Next Dose: _ furosemide (furosemide 20 mg Tab) 1 tab(s). Last Dose: _Next Dose: _ insulin lispro (insulin lispro 100 units/mL injectable solution) Subcutaneous. Last Dose: _Next Dose: _ mexiletine (mexiletine 200 mg Cap) 1 cap(s) Oral q8hr. Last Dose: _Next Dose: _ midodrine (midodrine 10 mg oral tablet) 1 Tablets By Mouth 3 times a day. Last (more content not included)... Normal [facility] BMPon 10-03-2023 Anion gap [Moles/Vol] 18 mmol/L High 6-16 [facility] Comment on above: Performed By: #### 2 [id number] #### [facility] [address] [place] [address] Calcium [Mass/Vol] 9.6 mg/dL Normal 8.9-11.1 [facility] Comment on above: Performed By: #### 2 [id number] #### [facility] [address] [place] [address] Chloride [Moles/Vol] 91 mmol/L Low 101-111 [facility] Comment on above: Performed By: #### 2 [id number] #### [facility] [address] [place] [address] CO2 [Moles/Vol] 29 mmol/L Normal 21-31 [facility] Comment on above: Performed By: #### 2 [id number] #### [facility] [address] [place] [address] Creatinine [Mass/Vol] 4.4 mg/dL High 0.5-1.3 [facility] Comment on above: Performed By: #### 2 [id number] #### [facility] [address] [place] [address] Glucose [Mass/Vol] 120 mg/dL Normal 55-199 [facility] Comment on above: Performed By: #### 2 [id number] #### [facility] [address] [place] [address] Potassium [Moles/Vol] 5.5 mmol/L High 3.5-5.3 [facility] Comment on above: Performed By: #### 2 [id number] #### [facility] [address] [place] [address] Sodium [Moles/Vol] 132 mmol/L Low 135-145 [facility] Comment on above: Performed By: #### 2 [id number] #### [facility] [address] [place] [address] Urea nitrogen [Mass/Vol] 60 mg/dL High 5-21 [facility] Comment on above: Performed By: #### 2 [id number] #### [facility] [address] [place] [address] Urea nitrogen/Creatinine [Mass ratio] 14 No Units Normal 10-20 [facility] Comment on above: Performed By: #### 2 [id number] #### [facility] [address] [place] [address] CBC w/ Auto Diffon 4 Basophils/100 WBC (Bld) 0.4 % Normal 0.0-2.0 [facility] Comment on above: Performed By: #### 2 [id number] #### [facility] [address] [place] [address] Basophils/Leukocytes Auto (Bld) [Pure # fraction] 0.0 E9/L Normal 0.0-0.2 [facility] Comment on above: Performed By: #### 2 [id number] #### [facility] [address] [place] [address] Eosinophils (Bld) [#/Vol] 0.3 E9/L Normal 0.0-0.5 [facility] Comment on above: Performed By: #### 2 [id number] #### [facility] [address] [place] [address] Eosinophils/100 WBC (Bld) 3.4 % Normal 0.0-8.0 [facility] Comment on above: Performed By: #### 2 [id number] #### [facility] [address] [place] [address] Erythrocyte distribution width (RBC) [Ratio] 16.8 % High 10.9-14.2 [facility] Comment on above: Performed By: #### 2 [id number] #### [facility] [address] [place] [address] Hematocrit (Bld) [Volume fraction] 32.6 % Low 34.0-46.0 [facility] Comment on above: Performed By: #### 2 [id number] #### [facility] [address] [place] [address] Hemoglobin (Bld) [Mass/Vol] 10.4 g/dL Low 12.0-16.0 [facility] Comment on above: Performed By: #### 2 107759 #### [facility] [address] [place] [address] Lymphocytes (Bld) [#/Vol] 1.6 E9/L Normal 1.0-4.0 [facility] Comment on above: Performed By: #### 2 [id number] #### [facility] [address] [place] [address] Lymphocytes/100 WBC (Bld) 17.6 % Normal 14.0-50.0 [facility] Comment on above: Performed By: #### 2 [id number] #### [facility] [address] [place] [address] MCH (RBC) [Entitic mass] 29.9 pg Normal 27.0-34.0 [facility] Comment on above: Performed By: #### 2 [id number] #### [facility] [address] [place] [address] MCHC (RBC) [Mass/Vol] 32.0 g/dL Normal 31.4-36.0 [facility] Comment on above: Performed By: #### 2 [id number] #### [facility] [address] [place] [address] MCV (RBC) [Entitic vol] 93.5 fL Normal 80.0-100.0 [facility] Comment on above: Performed By: #### 2 [id number] #### [facility] [address] [place] [address] Monocytes (Bld) [#/Vol] 0.9 E9/L Normal 0.2-1.0 [facility] Comment on above: Performed By: #### 2 [id number] #### [facility] [address] [place] [address] Neutrophils (Bld) [#/Vol] 6.2 E9/L Normal 2.0-7.5 [facility] Comment on above: Performed By: #### 2 [id number] #### [facility] [address] [place] [address] Neutrophils/100 WBC (Bld) 68.3 % Normal 36.0-75.0 [facility] Comment on above: Performed By: #### 2 [id number] #### [facility] [address] [place] [address] Platelet mean volume (Bld) [Entitic vol] 8.4 fL Normal 6.4-10.8 [facility] Comment on above: Performed By: #### 2 [id number] #### [facility] [address] [place] [address] Platelets (Bld) [#/Vol] 235.0 E9/L Normal 150.0-500.0 [facility] Comment on above: Performed By: #### 2 [id number] #### [facility] [address] [place] [address] RBC (Bld) [#/Vol] 3.5 E12/L Low 4.3-5.9 [facility] Comment on above: Performed By: #### 2 [id number] #### [facility] [address] [place] [address] WBC corrected for nucl RBC Auto (Bld) [#/Vol] 9.2 E9/L Normal 4.0-11.0 [facility] Comment on above: Performed By: #### 2 [id number] #### [facility] [address] [place] [address] CHEMISTRYOrdered By: Lab ROP User on 10-03-2023 Glucose [Mass/Vol] 100 mg/dL High 55 - 99 mg/dL [facility] POC Subsection Comment on above: Result Comment: Nellie abrams RN/ POC Device SN [id number] 1 Invalid Interpretation Code [facility] POC Subsection POC User ID [id number] 1 Invalid Interpretation Code [facility] POC Subsection POC Username MEHNAZMAYA GIBBS Invalid Interpretation Code [facility] POC Subsection CHEMISTRYOrdered By: SYSTEM SYSTEM on 10-03-2023 Anion gap [Moles/Vol] 18 mmol/L High 6 - 16 mEq/L R emisol Chem Calcium [Mass/Vol] 9.6 mg/dL Normal 8.9 - 11. 1 mg/dL [facility] Chloride [Moles/Vol] 91 mmol/L Low 101 - 1 11 mmol/L [facility] CO2 [Moles/Vol] 29 mmol/L Normal 21 - 31 mmol/L [facility] Creatinine [Mass/Vol] 4.4 mg/dL High 0.5 - 1.3 mg/dL [facility] eGFR 10 mL/min/1.73 m2 Low >=59mL/min /1 .73 m2 [facility] Glucose [Mass/Vol] 120 mg/dL Normal 55 - 199 mg/dL [facility] Potassium [Moles/Vol] 5.5 mmol/L High 3.5 - 5.3 mmol/L [facility] Sodium [Moles/Vol] 132 mmol/L Low 135 - 145 mmol/L [facility] Urea nitrogen [Mass/Vol] 60 mg/dL High 5 - 21 mg/dL [facility] Urea nitrogen/Creatinine [Mass ratio] 14 mg/mg Normal 10 - 20 [facility] Vanco Tr 18 microgram/mL Normal 10 - 20 mcg/mL [facility] Capillary Glucose POCon 09-11 Glucose [Mass/Vol] 100 mg/dL High 55-99 [facility] Comment on above: Result Comment: Nellie abrams RN/MD Performed By: #### 2 [id number] #### [facility] [address] [place] [address] Discharge Note-Nursingon Discharge Note-Nursing Discharge Note-Nu rswade CINTHYA WILSON :1945 Visit Date:09/29/2023 Inpatient Discharge Instructions Your Care Team Admitting Physician - Armando Munroe DO Consulting Physician - Pennie Singleton M.D, DPM, Julius Johnson MD, Natalie Reason for Your Visit infected toe Your Diagnosis Bacteremia due to Staphylococcus Osteomyelitis of right foot Cellulitis CAD in cheesh-na artery Presence of automatic cardioverter/defibrillat or (AICD) Chronic respiratory failure COPD mixed type Hypertension Hyperlipidemia Type 2 diabetes mellitus ESRD on dialysis Chronic GERD Anxiety and depression Dependence on renal dialysis Depression, unspecified Skin problem Toe pain-swelling Unspecified staphylococcus as the cause of diseases classified elsewhere Tests Performed Blood Culture Charcoal -- Results Pending -- UA with Cult Rflx -- Results Pending -- Vancomycin Level Trough -- Results Pending -- Foot XR Complete Right US PVR Lower EXT Complete Bilat XR Chest Single View Please visit your patient portal for your results or contact your primary care physician. This Is Your Medications List acetaminophen-oxycodone (acetaminophen-oxycodone 325 mg-5 mg Tab) ammonium lactate topical (ammonium lactate Top 12% Lotion) amoxicillin-clavulanate (Augmentin 500 mg-125 mg Tab) atorvastatin (atorvastatin 40 mg Tab) busPIRone (busPIRone 10 mg Tab) calcium acetate (calcium acetate 667 mg oral capsule) citalopram (citalopram 40 mg Tab) docusate (docusate sodium 100 mg Cap) fluticasone/umeclidinium /vilanterol (Trelegy Ellipta 100 mcg-62.5 mcg-25 mcg inhalation powder) furosemide (furosemide 20 mg Tab) insulin lispro (insulin lispro 100 units/mL injectable solution) mexiletine (mexiletine 200 mg Cap) midodrine (midodrine 10 mg oral tablet) orphenadrine (orphenadrine 100 mg ER Tab) pramipexole (pramipexole 0.5 mg oral tablet) pregabalin (pregabalin 50 mg Cap) silver sulfADIAZINE topical (silver sulfADIAZINE Top 1% Crm 20 gram) [Image Removed: STOP]Stop taking these medications bisoprolol (bisoprolol 10 mg Tab) cephalexin (cephalexin 250 mg Cap) cyclobenzaprine (cyclobenzaprine 10 mg Tab) Procedure History Incision AND drainage. Discharge Vitals Temperature (Axillary) 36.6 ?C Heart Rate (Monitored) 82 Respiratory Rate 16 Blood Pressure 104/52 Weight 73.1 kg What to do next Instructions From Your Doctor Event Name Event Result Discharge Activity Expect mild pain, Partial weight bearing Discharge Restrictions No driving Discharge Diet(s) Calorie Controlled- 2000 Calorie Diet Call Your Doctor For Persistent or heavy bleeding, Temperature above 100 degrees, Redness, swelling, or pus at operative site, Severe pain at the operative site Wound Care Do not remove dressing Pending Diagnostic Test Results Blood culture Discharge Instructions Return to ER if symptoms return or worsen. Follow up with Dr. Loyd and your primary care doctor. Previously Scheduled Follow-Up Appointments Friday 3:00 PM EDT With: Julius Loyd DPM Where: [facility] New Follow Up Appointments after Discharge Follow Up with Stephan Loyd When: In 6 days 10/07/2023 EDT Comments: post op visit Call for followup appointment Where: [facility] [address] [facility] [address]- [facility]: c/o [address] [place] [address]- Follow Up with LILY DEL REAL When: Within 7 to 10 days Comments: Call for followup appointment Where: [address] [place] [address] [place] [address]- Business (1) Medications What How Much When Instructions Next Dose New amoxicillin-clavulanate (Augmentin 500 mg-125 mg Tab) 1 Tablets By Mouth Every 24 hours take one daily and one after each dialysis session for 7 days total therapy Pickup at [facility]pharmacy #[id number] 10/04/2023 @ 9:00 AM Unchanged acetaminophen-oxycodone (acetaminophen-oxycodone 325 mg-5 mg Tab) See instructions 1 tab(s) Oral As needed for pain Unchanged ammonium lactate topical (ammonium lactate Top 12% Lotion) 1 Application Topical 10/04/2023 @ 9:00 PM Unchanged atorvastatin (atorvastatin 40 mg Tab) 1 Tablets By Mouth Every day 10/04/2023 @ 9:00 AM Unchanged busPIRone (busPIRone 10 mg Tab) 1 Tablets By Mouth 2 times a day 10/03/2023 @ 9:00 PM Unchanged calcium acetate (calcium acetate 667 mg oral capsule) 3 Capsules By Mouth 4 times a day 10/04/2023 @ 9:00 AM Unchanged citalopram (citalopram 40 mg Tab) See instructions 1 tab(s) 10/04/2023 @ 9:00 AM Unchanged docusate (docusate sodium 100 mg Cap) 1 Capsules By Mouth 2 times a day 10/03/2023 @ 9:00 PM Unchanged fluticasone/ umeclidinium/ vilanterol (Trelegy Ellipta 100 mcg-62.5 mcg-25 mcg inhalation powder) 1 Puffs Inhalation Every day 10/04/2023 @ 9:00 AM (more content not included)... Normal [facility] HEMATOLOGYOrdered By: SYSTEM SYSTEM on 10-03-2023 Basophils/100 WBC (Bld) 0.4 % Normal 0.0 - 2.0 % Remisol Heme Basophils/Leukocytes Auto (Bld) [Pure # fraction] 0.0 E9/L Normal 0.0 - 0.2 E9/L Remisol Heme Eosinophils (Bld) [#/Vol] 0.3 E9/L Normal 0.0 - 0.5 E9/L Remisol Heme Eosinophils/100 WBC (Bld) 3.4 % Normal 0.0 - 8.0 % Remisol Heme Erythrocyte distribution width (RBC) [Ratio] 16.8 % High 10.9 - 14.2 % Remisol Heme Hematocrit (Bld) [Volume fraction] 32.6 % Low 34.0 - 46.0 % Remisol Heme Hemoglobin (Bld) [Mass/Vol] 10.4 g/dL Low 12.0 - 16.0 gm/dL Remisol Heme Lymphocytes (Bld) [#/Vol] 1.6 E9/L Normal 1.0 - 4.0 E9/L Remisol Heme Lymphocytes/100 WBC (Bld) 17.6 % Normal 14.0 - 50.0 % Remisol Heme MCH (RBC) [Entitic mass] 29.9 pg Normal 27.0 - 34.0 pg Remisol Heme MCHC (RBC) [Mass/Vol] 32.0 g/dL Normal 31.4 - 36.0 gm/dL Remisol Heme MCV (RBC) [Entitic vol] 93.5 fL Normal 80.0 - 100.0 fL Remisol Heme Monocytes (Bld) [#/Vol] 0.9 E9/L Normal 0.2 - 1.0 E9/L Remisol Heme Monocytes/100 WBC (Bld) 10.3 % Normal 4.0 - 14.0 % Remisol Heme Neutrophils (Bld) [#/Vol] 6.2 E9/L Normal 2.0 - 7.5 E9/L Remisol Heme Neutrophils/100 WBC (Bld) 68.3 % Normal 36.0 - 75.0 % Remisol Heme Platelet mean volume (Bld) [Entitic vol] 8.4 fL Normal 6.4 - 10.8 fL Remisol Heme Platelets (Bld) [#/Vol] 235.0 E9/L Normal 150. 0 - 500.0 E9/L Remisol Heme RBC (Bld) [#/Vol] 3.5 E12/L Low 4.3 - 5.9 E12/L Remisol Heme WBC corrected for nucl RBC Auto (Bld) [#/Vol] 9.2 E9/L Normal 4.0 - 11.0 E9/L Remisol Heme Inpatient Clinical Summaryon 10-03-2023 Inpatient Clinical Summary Inpatient Clinical Summary [place] [address] Clinical Summary Person Information: Name: CINTHYA WILSON Age: 78 Years : 1945 Sex: Female PCP: LILY DEL REAL MD Marital Status: Single Phone: [phone] Race: White Ethnicity: Non- or Language: Iraqi Visit Id: Visit Reason: Skin problem; Toe pain-swelling; BIG TOE ON RIGHT FOOT INFECTED Speciality: Acuity: Enc Type: Inpatient Med Service: Medical Arrival: 09/29/2023 12:47:59 Discharge: Dispo Type: Admitted as IP to this Hosp Address: [facility] [id number] Provider Notes: Diagnosis: 2:Osteomyelitis of right foot; 3:Cellulitis; 4:CAD in cheesh-na artery; 5:Presence of automatic cardioverter/defibrillat or (AICD); 6:Chronic respiratory failure; 7:COPD mixed type; 8:Hypertension; 9:Hyperlipidemia; 10:Type 2 diabetes mellitus; 11:ESRD on dialysis; 12:Chronic GERD; 13:Anxiety and depression; Dependence on renal dialysis; Depression, unspecified; Unspecified staphylococcus as the cause of diseases classified elsewhere Problems Active MRSA (methicillin resistant staph aureus) culture positive (04/08/2023) Smoking Status: Never Smoker Functional Status: Sensory Deficits: History of Falls: Within last three months Mobility Assistance Prior to Admission: ADLs: Moderate assistance Current Level of Assistance for Self-Care/Mobility: Cognitive Status: Oriented x 3 Allergies lisinopril (Cough) gabapentin (Tongue swelling) Measurements: Height: 162.56 cm Weight: 73.1 kg Blood Pressure: 104 mmHg / 52 mmHg BMI: 25.2 kg/m2 Procedures Incision AND drainage Immunizations No Immunizations Documented This Visit Final Med List: acetaminophen-oxycodone (acetaminophen-oxycodone 325 mg-5 mg Tab) 1 tab(s) Oral. ammonium lactate topical (ammonium lactate Top 12% Lotion) 1 Application Topical. amoxicillin-clavulanate (Augmentin 500 mg-125 mg Tab) 1 Tablets By Mouth every 24 hours. take one daily and one after each dialysis session for 7 days total therapy. Refills: 0. atorvastatin (atorvastatin 40 mg Tab) 1 Tablets By Mouth every day. busPIRone (busPIRone 10 mg Tab) 1 Tablets By Mouth 2 times a day. calcium acetate (calcium acetate 667 mg oral capsule) 3 Capsules By Mouth 4 times a day. citalopram (citalopram 40 mg Tab) 1 tab(s). docusate (docusate sodium 100 mg Cap) 1 Capsules By Mouth 2 times a day. fluticasone/umeclidinium /vilanterol (Trelegy Ellipta 100 mcg-62.5 mcg-25 mcg inhalation powder) 1 Puffs Inhalation every day. furosemide (furosemide 20 mg Tab) 1 tab(s). insulin lispro (insulin lispro 100 units/mL injectable solution) Subcutaneous. mexiletine (mexiletine 200 mg Cap) 1 cap(s) Oral q8hr. midodrine (midodrine 10 mg oral tablet) 1 Tablets By Mouth 3 times a day. orphenadrine (orphenadrine 100 mg ER Tab) 1 tab(s) Oral. pramipexole (pramipexole 0.5 mg oral tablet) 1 Tablets By Mouth 3 times a day. pregabalin (pregabalin 50 mg Cap) 1 Capsules By Mouth every day. silver sulfADIAZINE topical (silver sulfADIAZINE Top 1% Crm 20 gram) 1 deborah Topical. Care Team Members: Attending Physician: Armando Munroe DO Consulting Physician: Julius Loyd DPM; Natalie Johnson MD; Pennie Singleton M.D Referring Physician: Follow up: With: Address: When: LILY DEL REAL [address] [place] [address] [facility] (1) Within 7 to 10 days Comments: Call for followup appointment With: Address: When: Stephan Loyd [facility], [facility], [address], [place] [address] [facility]: c/o [facility], [address] [place] [address], [place] [address] In 6 days 10/07/2023 Comments: post op visit Call for followup appointment Type Location Start [facility] State Secured Appointment Type Secured Location 10/07/2023 3:00 PM 10/07/2023 3:45 PM Confirmed Patient Education Information: Normal [facility] Inpatient Patient Summaryon 10-03-2023 Inpatient Patient Summary Inpatient Patient Summary [address] [address] Patient Discharge Instructions PERSON INFORMATION Name: CINTHYA WILSON Date of : 1945 Current Date: 10/03/2023 14:35:01 PHYSICIANS Admitting Physician: Armando Munroe DO Primary Care Physician: LILY DEL REAL MD PCP Comment: Discharge Diagnosis: 2:Osteomyelitis of right foot; 3:Cellulitis; 4:CAD in cheesh-na artery; 5:Presence of automatic cardioverter/defibrillat or (AICD); 6:Chronic respiratory failure; 7:COPD mixed type; 8:Hypertension; 9:Hyperlipidemia; 10:Type 2 diabetes mellitus; 11:ESRD on dialysis; 12:Chronic GERD; 13:Anxiety and depression; Dependence on renal dialysis; Depression, unspecified; Unspecified staphylococcus as the cause of diseases classified elsewhere Condition at Discharge: CINTHYA Gregg has been given the following list of follow-up instructions, prescriptions, and patient education materials: PATIENT FOLLOW-UP INFORMATION Diet: Calorie Controlled- 2000 Calorie Diet Discharge Activity: Expect mild pain, Partial weight bearing Discharge Restrictions: No driving Wound Care Instructions: Do not remove dressing Remove Your Dressing In Days Call Your Doctor For: Persistent or heavy bleeding, Temperature above 100 degrees, Redness, swelling, or pus at operative site, Severe pain at the operative site IF UNABLE TO CONTACT YOUR PHYSICIAN AND YOU FEEL IT IS AN EMERGENCY, GO TO THE NEAREST EMERGENCY ROOM OR CALL 911 Home Treatment: Devices/Equipment: Oxygen, Rollator Walker Special Services: Additional Instructions: Return to ER if symptoms return or worsen. Follow up with Dr. Loyd and your primary care doctor. Primary Care Physician to provide the following pending test results: Blood culture Follow up: With: Address: When: LILY DEL REAL [address] [place] [id number] Business (1) Within 7 to 10 days Comments: Call for followup appointment With: Address: When: Stephan Loyd [facility], [facility], [address], [place] [address] [facility]: c/o [facility], [address] [place] [address], [place] [address] In 6 days 10/07/2023 Comments: post op visit Call for followup appointment In the event that this physician does not participate in your insurance network, please consult with your insurance company to find a nearby participating provider. Type Location Start [facility] State Secured Appointment Type Secured Location 10/07/2023 3:00 PM 10/07/2023 3:45 PM Confirmed Comment: I, STONER, CINTHYA, have received the attached patient education materials/instructions and have verbalized understanding: Patient Signature Date Clinican/Nurse Signature Date HERE ARE THE MEDICATION CHANGES THAT OCCURRED DURING YOUR HOSPITAL STAY New Medications [id number], [address] [facility] [place], [place] [id number], [phone] amoxicillin-clavulanate (Augmentin 500 mg-125 mg Tab) 1 Tablets By Mouth every 24 hours. take one daily and one after each dialysis session for 7 days total therapy. Refills: 0. Last Dose: _Next Dose: _ Medications to Continue with No Changes Other Medications acetaminophen-oxycodone (acetaminophen-oxycodone 325 mg-5 mg Tab) 1 tab(s) Oral. Last Dose: _Next Dose: _ ammonium lactate topical (ammonium lactate Top 12% Lotion) 1 Application Topical. Last Dose: _Next Dose: _ atorvastatin (atorvastatin 40 mg Tab) 1 Tablets By Mouth every day. Last Dose: _Next Dose: _ busPIRone (busPIRone 10 mg Tab) 1 Tablets By Mouth 2 times a day. Last Dose: _Next Dose: _ calcium acetate (calcium acetate 667 mg oral capsule) 3 Capsules By Mouth 4 times a day. Last Dose: _Next Dose: _ citalopram (citalopram 40 mg Tab) 1 tab(s). Last Dose: _Next Dose: _ docusate (docusate sodium 100 mg Cap) 1 Capsules By Mouth 2 times a day. Last Dose: _Next Dose: _ fluticasone/umeclidinium /vilanterol (Trelegy Ellipta 100 mcg-62.5 mcg-25 mcg inhalation powder) 1 Puffs Inhalation every day. Last Dose: _Next Dose: _ furosemide (furosemide 20 mg Tab) 1 tab(s). Last Dose: _Next Dose: _ insulin lispro (insulin lispro 100 units/mL injectable solution) Subcutaneous. Last Dose: _Next Dose: _ mexiletine (mexiletine 200 mg Cap) 1 cap(s) Oral q8hr. Last Dose: _Next Dose:___ (more content not included)... [facility] Interdisciplinary Note - Mathieu e Manageron 10-03-2023 Interdisciplinary Note - Check Writing Machine Operator Interdisciplinary Note - Check Writing Machine Operator CRM spoke with patient in room. Patient is alert and oriented and participates in discharge planning. No family in room. Patient white board updated, and CRM contact information provided. Discussed CRM spoke with Dr Alvarado who saw patient earlier today and she can dc home today after her dialysis is done. Bl cx had contaminate and does not need IV ATB at dc. Patient has her portable oxygen here. She may need assistance with transport at de. She has called her daughter and waiting her to see if she can transport this afternoon, if not will use shuttle to transport home. . Reviewed Medicare rights, she denies any questions. Gave her a copy of signed form. Normal [facility] Comment on above: Result Comment: Elec tronically Signed By: Jordon JOVEL, Ofe\.br\Date and Time Signed: 10/03/23 10:32 EDT Vanco Troughon 10-03-2023 Vanco Tr 18 microgram/mL Normal 10-20 [facility] Comment on above: Performed By: #### 2 [id number] #### [facility] [address] [place] [address] eGFRon 10-03-2023 eGFR 10 mL/min/1.73 m2 Low >=59 [facility] Comment on above: Order Comment: Order added by Discern Expert. Performed By: #### 1 [id number] #### [facility] [address] [place] [address] BUNon 10-02-2023 Urea nitrogen [Mass/Vol] 34 mg/dL High 5-21 [facility] Comment on above: Performed By: #### 2 [id number] #### [facility] [address] [place] [address] CBC w/ Auto Diffon 4 Basophils/100 WBC (Bld) 0.2 % Normal 0.0-2.0 [facility] Comment on above: Performed By: #### 2 [id number] #### [facility] [address] [place] [address] Basophils/Leukocytes Auto (Bld) [Pure # fraction] 0.0 E9/L Normal 0.0-0.2 [facility] Comment on above: Performed By: #### 2 [id number] #### [facility] [address] [place] [address] Eosinophils (Bld) [#/Vol] 0.0 E9/L Normal 0.0-0.5 [facility] Comment on above: Performed By: #### 2 [id number] #### [facility] [address] [place] [address] Eosinophils/100 WBC (Bld) 0.1 % Normal 0.0-8.0 [facility] Comment on above: Performed By: #### 2 [id number] #### [facility] [address] [place] [address] Erythrocyte distribution width (RBC) [Ratio] 16.3 % High 10.9-14.2 [facility] Comment on above: Performed By: #### 2 [id number] #### [facility] [address] [place] [address] Hematocrit (Bld) [Volume fraction] 33.4 % Low 34.0-46.0 [facility] Comment on above: Performed By: #### 2 [id number] #### [facility] [address] [place] [address] Hemoglobin (Bld) [Mass/Vol] 10.8 g/dL Low 12.0-16.0 [facility] Comment on above: Performed By: #### 2 [id number] #### [facility] [address] [place] [address] Lymphocytes (Bld) [#/Vol] 0.6 E9/L Low 1.0-4.0 [facility] Comment on above: Performed By: #### 2 [id number] #### [facility] [address] [place] [address] Lymphocytes/100 WBC (Bld) 7.9 % Low 14.0-50.0 [facility] Comment on above: Performed By: #### 2 [id number] #### [facility] [address] [place] [address] MCH (RBC) [Entitic mass] 30.0 pg Normal 27.0-34.0 [facility] Comment on above: Performed By: #### 2 [id number] #### [facility] [address] [place] [address] MCHC (RBC) [Mass/Vol] 32.4 g/dL Normal 31.4-36.0 [facility] Comment on above: Performed By: #### 2 [id number] #### [facility] [address] [place] [address] MCV (RBC) [Entitic vol] 92.4 fL Normal 80.0-100.0 F [facility] Comment on above: Performed By: #### 2 [id number] #### [facility] [address] [place] [address] Monocytes (Bld) [#/Vol] 0.6 E9/L Normal 0.2-1.0 F [facility] Comment on above: Performed By: #### 2 [id number] #### [facility] [address] [place] [address] Neutrophils (Bld) [#/Vol] 5.8 E9/L Normal 2.0-7.5 [facility] Comment on above: Performed By: #### 2 [id number] #### [facility] [address] [place] [address] Neutrophils/100 WBC (Bld) 83.6 % High 36.0-75.0 [facility] Comment on above: Performed By: #### 2 [id number] #### [facility] [address] [place] [address] Platelet mean volume (Bld) [Entitic vol] 8.8 fL Normal 6.4-10.8 [facility] Comment on above: Performed By: #### 2 [id number] #### [facility] [address] [place] [address] Platelets (Bld) [#/Vol] 241.0 E9/L Normal 150.0-500.0 [facility] Comment on above: Performed By: #### 2 [id number] #### [facility] [address] [place] [address] RBC (Bld) [#/Vol] 3.6 E12/L Low 4.3-5.9 [facility] Comment on above: Performed By: #### 2 [id number] #### [facility] [address] [place] [address] WBC corrected for nucl RBC Auto (Bld) [#/Vol] 7.0 E9/L Normal 4.0-11.0 [facility] Comment on above: Performed By: #### 2 [id number] #### [facility] [address] [place] [address] CHEMISTRYOrdered By: Lab ROP User on 10-02-2023 Glucose [Mass/Vol] 205 mg/dL High 55 - 99 mg/dL [facility] POC Subsection Comment on above: Result Comment: Nellie abrams RN/ POC Device SN [id number] 1 Invalid Interpretation Code FT POC Subsection POC User ID [id number] 1 Invalid Interpretation Code [facility] POC Subsection POC Username GAY LICONA Invalid Interpretation Code [facility] POC Subsection Glucose [Mass/Vol] 107 mg/dL High 55 - 99 mg/dL [facility] POC Subsection Comment on above: Result Comment: Nellie abrams RN/ POC Device SN [id number] 1 Invalid Interpretation Code FT POC Subsection POC User ID [id number] 1 Invalid Interpretation Code [facility] POC Subsection POC Username FRANSICO MURO Invalid Interpretation Code [facility] POC Subsection CHEMISTRYOrdered By: SYSTEM SYSTEM on 10-02-2023 Anion gap [Moles/Vol] 18 mmol/L High 6 - 16 mEq/L R emisol Chem Chloride [Moles/Vol] 90 mmol/L Low 101 - 1 11 mmol/L Remisol Chem CO2 [Moles/Vol] 28 mmol/L Normal 21 - 31 mmol/L Remisol Chem Creatinine [Mass/Vol] 3.3 mg/dL High 0.5 - 1.3 mg/dL Remisol Chem eGFR 14 mL/min/1.73 m2 Low >=59mL/min /1 .73 m2 Remisol Chem Magnesium [Mass/Vol] 1.9 mg/dL Normal 1.3 - 2 .4 mg/dL Remisol Chem Potassium [Moles/Vol] 4.6 mmol/L Normal 3.5 - 5.3 mmol/L Remisol Chem Sodium [Moles/Vol] 131 mmol/L Low 135 - 145 mmol/L Remisol Chem Urea nitrogen [Mass/Vol] 34 mg/dL High 5 - 21 mg/dL Remisol Chem Capillary Glucose POCon 09-11 Glucose [Mass/Vol] 205 mg/dL High 55-99 [facility] Comment on above: Result Comment: Nellie SIMONS Performed By: #### 2 [id number] #### [facility] [address] [place] [address] Glucose [Mass/Vol] 107 mg/dL High [address] [place] [address] Comment on above: Result Comment: Nellie SIMONS Performed By: #### 2 [id number] #### [facility] [address] [place] [address] Glucose [Mass/Vol] 295 mg/dL High - [facility] Comment on above: Result Comment: Nellie SIMONS Performed By: #### 2 [id number] #### [facility] [address] [place] [address] Glucose [Mass/Vol] 160 mg/dL High [address] [place] [address] Comment on above: Result Comment: Nellie SIMONS Performed By: #### 2 [id number] #### [facility] [address] [place] [address] Creatinineon 10-02-2023 Creatinine [Mass/Vol] 3.3 mg/dL High 0.5-1.3 [facility] Comment on above: Performed By: #### 2 [id number] #### [facility] [address] [place] [address] HEMATOLOGYOrdered By: SYSTEM SYSTEM on 10-02-2023 Basophils/100 WBC (Bld) 0.2 % Normal 0.0 - 2.0 % Remisol Heme Basophils/Leukocytes Auto (Bld) [Pure # fraction] 0.0 E9/L Normal 0.0 - 0.2 E9/L Remisol Heme Eosinophils (Bld) [#/Vol] 0.0 E9/L Normal 0.0 - 0.5 E9/L Remisol Heme Eosinophils/100 WBC (Bld) 0.1 % Normal 0.0 - 8.0 % Remisol Heme Erythrocyte distribution width (RBC) [Ratio] 16.3 % High 10.9 - 14.2 % Remisol Heme Hematocrit (Bld) [Volume fraction] 33.4 % Low 34.0 - 46.0 % Remisol Heme Hemoglobin (Bld) [Mass/Vol] 10.8 g/dL Low 12.0 - 16.0 gm/dL Remisol Heme Lymphocytes (Bld) [#/Vol] 0.6 E9/L Low 1.0 - 4.0 E9/L Remisol Heme Lymphocytes/100 WBC (Bld) 7.9 % Low 14.0 - 50.0 % Remisol Heme MCH (RBC) [Entitic mass] 30.0 pg Normal 27.0 - 34.0 pg Remisol Heme MCHC (RBC) [Mass/Vol] 32.4 g/dL Normal 31.4 - 36.0 gm/dL Remisol Heme MCV (RBC) [Entitic vol] 92.4 fL Normal 80.0 - 100.0 fL Remisol Heme Monocytes (Bld) [#/Vol] 0.6 E9/L Normal 0.2 - 1.0 E9/L Remisol Heme Monocytes/100 WBC (Bld) 8.2 % Normal 4.0 - 14.0 % Remisol Heme Neutrophils (Bld) [#/Vol] 5.8 E9/L Normal 2.0 - 7.5 E9/L Remisol Heme Neutrophils/100 WBC (Bld) 83.6 % High 36.0 - 75.0 % Remisol Heme Platelet mean volume (Bld) [Entitic vol] 8.8 fL Normal 6.4 - 10.8 fL Remisol Heme Platelets (Bld) [#/Vol] 241.0 E9/L Normal 150. 0 - 500.0 E9/L Remisol Heme RBC (Bld) [#/Vol] 3.6 E12/L Low 4.3 - 5.9 E12/L Remisol Heme WBC corrected for nucl RBC Auto (Bld) [#/Vol] 7.0 E9/L Normal 4.0 - 11.0 E9/L Remisol Heme Interdisciplinary Note - Mathieu e Manageron 10-02-2023 Interdisciplinary Note - Check Writing Machine Operator Interdisciplinary Note - Check Writing Machine Operator CRM spoke with patient in room. Patient is alert and oriented and participates in discharge planning. No family in room. Patient white board updated, and CRM contact information provided. Discussed CRM spoke with Dr Alvarado who saw patient earlier today and will be here a couple days , waiting cx results. Patient has Bacteremia and anticipated to need IV ATB at de. Will need to check to see if IV ATB can be done with her dialysis on //. Patient is current with [facility] for RN/PT/OT. Patient is on 3L oxygen and that is her home dose. Family will transport at de. Reviewed Medicare rights, she denies any questions. Normal [facility] Comment on above: Result Comment: Elec tronically Signed By: Jordon RN, Ofe\.br\Date and Time Signed: 10/02/23 12:15 EDT [place] 10-02-2023 Anion gap [Moles/Vol] 18 mmol/L High 6-16 [facility] Comment on above: Performed By: #### 2 [id number] #### [facility] [address] [place] [address] Chloride [Moles/Vol] 90 mmol/L Low 101-111 [facility] Comment on above: Performed By: #### 2 [id number] #### [facility] [address] [place] [address] CO2 [Moles/Vol] 28 mmol/L Normal 21-31 [facility] Comment on above: Performed By: #### 2 [id number] #### [facility] [address] [place] [address] Potassium [Moles/Vol] 4.6 mmol/L Normal 3.5-5.3 [facility] Comment on above: Performed By: #### 2 [id number] #### [facility] [address] [place] [address] Sodium [Moles/Vol] 131 mmol/L Low 135-145 [facility] Comment on above: Performed By: #### 2 [id number] #### [facility] [address] [place] [address] Magnesiumon 10-02-2023 Magnesium [Mass/Vol] 1.9 mg/dL Normal 1.3-2.4 [facility] Comment on above: Performed By: #### 2 [id number] #### [facility] [address] [place] [address] Main OR Intraoperative Recor don 10-02-2023 Main OR Intraoperative Record Main OR Intraoperative Record IntraOp Document Type FT Summary Primary Physician: Stephan Loyd DPM Finalized Date/Time: 10/02/23 08:56:36 Pt. Name: STEVE CINTHYACORTES Diallo./Sex: 1945 Female Med Rec #: [id number] Physician: Armando Munroe DO Financial #: [id number] Pt. Type: I Room/Bed: [place] [address] Admit/Disch: 09/29/23 12:47:59 - Institution: Case Times FT Entry 1 Patient Times In Room 10/01/23 12:21:00 Out Room 10/01/23 12:57:00 Procedure Times Start 10/01/23 12:36:00 Stop 10/01/23 12:53:00 Anesthesia Times Start 10/01/23 12:21:00 Stop 10/01/23 12:57:00 Last Modified By: Graham Cortes Ii 10/01/23 13:06:29 General Comments: 10/02/23 Chart opened to review and send charges [facility]oth CSFA Case Attendance FT Entry 1 Entry 2 Entry 3 Case Attendee Loco DNP, SEO INTERN, Stephan Field DPM MEDICAL DATA ENTRY CLERK, Getachew Rincon Role Performed SEO INTERN Surgeon - Primary MEDICAL DATA ENTRY CLERK/SA Time In 10/01/23 12:21:00 10/01/23 12:21:00 10/01/23 12:21:00 Time Out 10/01/23 12:57:00 10/01/23 12:57:00 10/01/23 12:57:00 Procedure TRANSMETATARSAL TRANSMETATARSAL TRANSMETATARSAL AMPUTATION(Right) AMPUTATION(Right) AMPUTATION(Right) Comments ASSIST Last Modified By: Julio Cesar HUGGINS, Graham Yoo Ii, Alfons Ii F 10/02/23 08:54:26 10/01/23 13:06:30 10/01/23 13:06:30 Entry 4 Entry 5 Case Attendee Graham Cortes Ii, Kendall R Role Performed Pile Driving Superintendent - Primary Scrub - Primary Time In 10/01/23 12:21:00 10/01/23 12:21:00 Time Out 10/01/23 12:57:00 10/01/23 12:57:00 Procedure TRANSMETATARSAL TRANSMETATARSAL AMPUTATION(Right) AMPUTATION(Right) Comments Last Modified By: Graham Cortes Ii, Alfons Ii F 10/01/23 13:06:30 10/01/23 13:06:30 Perioperative Protocols FT Pre-Care Text: Implements protective measures prior to operative or invasive procedure, confirms identity before the operative or invasive procedure, verifies operative procedure, surgical site, and laterality Entry 1 Procedure(s) TRANSMETATARSAL Patient Identity Birthday, ID Band AMPUTATION(Right) Verified (select at Check, Patient least 2): Participation Consents / H and P Anesthesia Consent, Operative Site Present Verified H&P, Surgery/Procedure Marking Verified Consent Surgical Site Yes Laterality Verified Yes Verified Procedure Verified Yes Correct Patient Yes Position Verified Availability Equipment, Medication Prep Dry No Verified (If Applicable) Time Out Loco HOLCOMB, MAURICE, Time Out Complete 10/01/23 12:36:00 Participants N., Caro DPM, Stephan R, Juan Pablo HUGGINS, Getachew Mc, Graham Cortes Ii, Laz Watts Outcomes Met? Yes Last Modified By: Graham Cortes Ii 10/01/23 12:43:17 Post-Care Text: The patient is free from signs and symptoms of injury caused by extraneous objects Allergy Information FT Pre-Care Text: Verifies allergies Entry 1 Allergies Reviewed? Yes Allergies Reviewed Self/Patient With Outcomes Met? Yes Last Modified By: Graham Cortes Ii 10/01/23 12:43:24 Post-Care Text: The patient received appropriate medication(s) safely administered during the perioperative period Surgical Procedures FT Entry 1 Procedure Description Procedure TRANSMETATARSAL Modifiers Right AMPUTATION Surgeon Description INCISION AND DRAINAGE FIRST RAY AMPUTATION RIGHT FOOT Primary Procedure Yes Primary Surgeon Caro HAIRSTON Stephan Albaro Start 10/01/23 12:36:00 Stop 10/01/23 12:53:00 Anesthesia Type General Surgical Service Podiatry Wound Class 3 - Contaminated Last Modified By: Graham Cortes Ii 10/01/23 13:06:46 General Case Data FT Pre-Care Text: Classifies surgical wound, implements aseptic technique, initiates traffic control Entry 1 Case Information OR OR 2 FT Case Level Level 2 Wound Class 3 - Contaminated Specialty Podiatry Preop Diagnosis RIGHT FOOT INFECTION Postop Same As Preop Yes Postop Diagnosis RIGHT FOOT INFECTION Outcomes Met? Yes Last Modified By: Graham Cortes Ii 10/01/23 12:50:43 Post-Care Text: The patient is free from signs and symptoms of infection Skin Assessment (Pre Procedure) FT Pre-Care Text: Implements protective measures to prevent skin/ tissue injury due to thermal or mechanical sources Evaluates for signs and symptoms of physical injury to skin and tissue Entry 1 Skin Integrity Intact, Cantrall, Warm, & Skin Abnormality No Dry Outcomes Met? Yes Last Modified By: Graham Cortes Ii 10/01/23 12:50:34 Post-Care Text: The patient is free from signs and symptoms of injury caused by extraneous objects Patient Positioning FT Pre-Care Text: Identifies physical alterations that require additional precautions for procedure-specific positioning, verifies presence of prosthetics or corrective devices, positions the patient, evaluates the patient for signs and symptoms of injury as a result of positioning Entry 1 Procedure TRANSMETATARSAL Body Position (more content not included)... Normal [facility] No Panel InformationOrdered By: ANGPROCESSSERVER MICROBIOLOGY on 10-02-2023 Blood Culture Charcoal No growth at 1 da y. Final to follow at 7 days. [facility] Blood Culture Charcoal No growth at 1 da y. Final to follow at 7 days. [facility] US PVR Lower EXT Complete Bi laton 10-02-2023 US PVR Lower EXT Complete Bilat Exam Date/Time: 09/29/2023 18:32 EDT Reason for Exam: PAD Report IMPRESSION: NO EVIDENCE OF SIGNIFICANT ARTERIAL STENOTIC DISEASE INVOLVING THE RIGHT AND LEFT LEGS, WITHIN THE LIMITS OF THE STUDY. CLINICAL HISTORY: PAD. COMPARISON: 12/24/2022 FINDINGS: On the right, the brachial systolic pressure is 136 the high thigh pressure is 172 , index 1.26 the low thigh pressure is 142 , index 1.04 the calf pressure is 226 , index 1.66 the posterior tibial ankle pressure is >255, index -NC- the dorsalis pedis ankle pressure is 159 , index 1.17 and the digit pressure was not obtained. The plethysmography waveforms are mildly abnormal through the metatarsal. On the left, the brachial systolic pressure was not obtained. The high thigh pressure is 133 , index 0.98 the low thigh pressure is 126 , index 0.93 the calf pressure is >255, index -NC- the posterior tibial ankle pressure is >255, index -NC- the dorsalis pedis ankle pressure is >255, index -NC- and the digit pressure is 45, index 0.33 (with normal 0.7 or greater). The plethysmography waveforms are mildly abnormal through the metatarsal and moderately abnormal at the left great digit. Ordering Provider: Yovani Ledbetter FINAL REPORT Dictated: 10/02/2023 8:05 am Gideon Valladares MD Signed (Electronic Signature): 10/02/2023 8:05 am Signed by: Gideon Valladares MD Transcribed by: YENIFER Technologist: IRVIN Phipps [facility] eGFRon 10-02-2023 eGFR 14 mL/min/1.73 m2 Low >=59 [facility] Comment on above: Order Comment: Order added by Discern Expert. Performed By: #### 1 [id number] #### [facility] [address] [place] [address] BMPOrdered By: SYSTEM SYSTEM on 10-01-2023 Anion gap [Moles/Vol] 18 mmol/L High 6 - 16 mEq/L R emisol Chem Comment on above: Performed By: #### 2 [id number] #### [facility] [address] [place] [address] Calcium [Mass/Vol] 9.8 mg/dL Normal 8.9 - 11. 1 mg/dL Remisol Chem Comment on above: Performed By: #### 2 [id number] #### [facility] [address] [place] [address] Chloride [Moles/Vol] 91 mmol/L Low 101 - 1 11 mmol/L Remisol Chem Comment on above: Performed By: #### 2 [id number] #### [facility] [address] [place] [address] CO2 [Moles/Vol] 29 mmol/L Normal 21 - 31 mmol/L Remisol Chem Comment on above: Performed By: #### 2 [id number] #### [facility] [address] [place] [address] Creatinine [Mass/Vol] 5.1 mg/dL High 0.5 - 1.3 mg/dL Remisol Chem Comment on above: Performed By: #### 2 [id number] #### [facility] [address] [place] [address] Glucose [Mass/Vol] 139 mg/dL Normal 55 - 199 mg/dL Remisol Chem Comment on above: Performed By: #### 2 [id number] #### [facility] [address] [place] [address] Potassium [Moles/Vol] 4.9 mmol/L Normal 3.5 - 5.3 mmol/L Remisol Chem Comment on above: Performed By: #### 2 [id number] #### [facility] [address] [place] [address] Sodium [Moles/Vol] 133 mmol/L Low 135 - 145 mmol/L Remisol Chem Comment on above: Performed By: #### 2 [id number] #### [facility] [address] [place] [address] Urea nitrogen [Mass/Vol] 54 mg/dL High 5 - 21 mg/dL Remisol Chem Comment on above: Performed By: #### 2 [id number] #### [facility] [address] [place] [address] BMPon 10-01-2023 Urea nitrogen/Creatinine [Mass ratio] 11 No Units Normal 10-20 [facility] Comment on above: Performed By: #### 2 [id number] #### [facility] [address] [place] [address] CBC w/ Auto DiffOrdered By: SYSTEM SYSTEM on 10-01-2023 Basophils/100 WBC (Bld) 0.6 % Normal 0.0 - 2.0 % Remisol Heme Comment on above: Performed By: #### 2 [id number] #### [facility] [address] [place] [address] Basophils/Leukocytes Auto (Bld) [Pure # fraction] 0.0 E9/L Normal 0.0 - 0.2 E9/L Remisol Heme Comment on above: Performed By: #### 2 [id number] #### [facility] [address] [place] [address] Eosinophils (Bld) [#/Vol] 0.5 E9/L Normal 0.0 - 0.5 E9/L Remisol Heme Comment on above: Performed By: #### 2 [id number] #### [facility] [address] [place] [address] Eosinophils/100 WBC (Bld) 6.2 % Normal 0.0 - 8.0 % Remisol Heme Comment on above: Performed By: #### 2 [id number] #### [facility] [address] [place] [address] Erythrocyte distribution width (RBC) [Ratio] 16.7 % High 10.9 - 14.2 % Remisol Heme Comment on above: Performed By: #### 2 [id number] #### [facility] [address] [place] [address] Hematocrit (Bld) [Volume fraction] 32.7 % Low 34.0 - 46.0 % Remisol Heme Comment on above: Performed By: #### 2 [id number] #### [facility] [address] [place] [address] Hemoglobin (Bld) [Mass/Vol] 10.8 g/dL Low 12.0 - 16.0 gm/dL Remisol Heme Comment on above: Performed By: #### 2 [id number] #### [facility] [address] [place] [address] Lymphocytes (Bld) [#/Vol] 1.4 E9/L Normal 1.0 - 4.0 E9/L Remisol Heme Comment on above: Performed By: #### 2 [id number] #### [facility] [address] [place] [address] Lymphocytes/100 WBC (Bld) 19.6 % Normal 14.0 - 50.0 % Remisol Heme Comment on above: Performed By: #### 2 [id number] #### [facility] [address] [place] [address] 13576 MCH (RBC) [Entitic mass] 30.6 pg Normal 27.0 - 34.0 pg Remisol Heme Comment on above: Performed By: #### 2 [id number] #### [facility] [address] [place] [address] MCHC (RBC) [Mass/Vol] 33.2 g/dL Normal 31.4 - 36.0 gm/dL Remisol Heme Comment on above: Performed By: #### 2 [id number] #### [facility] [address] [place] [address] MCV (RBC) [Entitic vol] 92.4 fL Normal 80.0 - 100.0 fL Remisol Heme Comment on above: Performed By: #### 2 [id number] #### [facility] [address] [place] [address] Monocytes (Bld) [#/Vol] 0.8 E9/L Normal 0.2 - 1.0 E9/L Remisol Heme Comment on above: Performed By: #### 2 [id number] #### [facility] [address] [place] [address] Neutrophils (Bld) [#/Vol] 4.6 E9/L Normal 2.0 - 7.5 E9/L Remisol Heme Comment on above: Performed By: #### 2 [id number] #### [facility] [address] [place] [address] Neutrophils/100 WBC (Bld) 62.6 % Normal 36.0 - 75.0 % Remisol Heme Comment on above: Performed By: #### 2 [id number] #### [facility] [address] [place] [address] Platelet 254.0 E9/L Normal 150.0 - 500.0 E9/L Remisol Heme Comment on above: Performed By: #### 2 [id number] #### [facility] [address] [place] [address] Platelet mean volume (Bld) [Entitic vol] 8.7 fL Normal 6.4 - 10.8 fL Remisol Heme Comment on above: Performed By: #### 2 [id number] #### [facility] [address] [place] [address] RBC (Bld) [#/Vol] 3.5 E12/L Low 4.3 - 5.9 E12/L Remisol Heme Comment on above: Performed By: #### 2 [id number] #### [facility] [address] [place] [address] WBC corrected for nucl RBC Auto (Bld) [#/Vol] 7.4 E9/L Normal 4.0 - 11.0 E9/L Remisol Heme Comment on above: Performed By: #### 2 [id number] #### [facility] [address] [place] [address] CHEMISTRYOrdered By: SYSTEM SYSTEM on 10-01-2023 Urea nitrogen/Creatinine [Mass ratio] 11 mg/mg Normal 10 - 20 Remisol Chem Capillary Glucose POCon 09-11 Glucose [Mass/Vol] 293 mg/dL High 55-99 [facility] Comment on above: Result Comment: Nellie abrams RN/ Performed By: #### 2 [id number] #### [facility] [address] [place] [address] Glucose [Mass/Vol] 172 mg/dL High 55-99 [facility] Comment on above: Result Comment: Monika dmitriy Meter Performed By: #### 2 [id number] #### [facility] [address] [place] [address] Glucose [Mass/Vol] 126 mg/dL High 55-99 [facility] Comment on above: Result Comment: Monika dmitriy Meter Performed By: #### 2 [id number] #### [facility] [address] [place] [address] Glucose [Mass/Vol] 128 mg/dL High 55-99 [facility] Comment on above: Result Comment: Monika dmitriy Meter Performed By: #### 2 [id number] #### [facility] [address] [place] [address] Glucose [Mass/Vol] 119 mg/dL High 55-99 [facility] Comment on above: Result Comment: Nellie abrams RN/MD Performed By: #### 2 [id number] #### [facility] [address] [place] [address] HEMATOLOGYOrdered By: SYSTEM SYSTEM on 10-01-2023 Monocytes/100 WBC (Bld) 11.0 % Normal 4.0 - 14.0 % Remisol Heme Inpatient Patient Summaryon 10-01-2023 Inpatient Patient Summary Inpatient Patient Summary [place] [id number] [facility] Clinical Discharge Instructions PERSON INFORMATION Name: CINTHYA WILSON [facility] Admitting Physician: Armando Munroe DO Attending Physician: Armando Munroe DO PCP: LILY DEL REAL MD Discharge Diagnosis: 1:Osteomyelitis of right foot; 2:Cellulitis; 3:CAD in cheesh-na artery; 4:Presence of automatic cardioverter/defibrillat or (AICD); 5:Chronic respiratory failure; 6:COPD mixed type; 7:Hypertension; 8:Hyperlipidemia; 9:Type 2 diabetes mellitus; 10:ESRD on dialysis; 11:Chronic GERD; 12:Anxiety and depression; Dependence on renal dialysis; Depression, unspecified Comment: PATIENT EDUCATION INFORMATION Instructions: Medication Leaflets: Follow up: With: Address: When: Stephan Loyd [facility], [facility], [address], [place] [address] [facility]: c/o [facility] [place] [facility], [address] [place] [address], [place] [address] In 6 days 10/07/2023 Comments: post op visit Type Location Start Finish State Follow Up Visit (FT) [facility] 10/07/2023 3:00 PM 10/07/2023 3:45 PM Confirmed MEDICATION LIST Medications to Continue with No Changes Other Medications acetaminophen-oxycodone (acetaminophen-oxycodone 325 mg-5 mg Tab) 1 tab(s) Oral. ammonium lactate topical (ammonium lactate Top 12% Lotion) 1 Application Topical. atorvastatin (atorvastatin 40 mg Tab) 1 Tablets By Mouth every day. bisoprolol (bisoprolol 10 mg Tab) 1 Tablets By Mouth every day. busPIRone (busPIRone 10 mg Tab) 1 Tablets By Mouth 2 times a day. calcium acetate (calcium acetate 667 mg oral capsule) 3 Capsules By Mouth 4 times a day. cephalexin (cephalexin 250 mg Cap) 1 cap(s) Oral. citalopram (citalopram 40 mg Tab) 1 tab(s). cyclobenzaprine (cyclobenzaprine 10 mg Tab) 1 Tablets By Mouth 3 times a day. docusate (docusate sodium 100 mg Cap) 1 Capsules By Mouth 2 times a day. fluticasone/umeclidinium /vilanterol (Trelegy Ellipta 100 mcg-62.5 mcg-25 mcg inhalation powder) 1 Puffs Inhalation every day. furosemide (furosemide 20 mg Tab) 1 tab(s). insulin lispro (insulin lispro 100 units/mL injectable solution) Subcutaneous. mexiletine (mexiletine 200 mg Cap) 1 cap(s) Oral q8hr. midodrine (midodrine 10 mg oral tablet) 1 Tablets By Mouth 3 times a day. orphenadrine (orphenadrine 100 mg ER Tab) 1 tab(s) Oral. pramipexole (pramipexole 0.5 mg oral tablet) 1 Tablets By Mouth 3 times a day. pregabalin (pregabalin 50 mg Cap) 1 Capsules By Mouth every day. silver sulfADIAZINE topical (silver sulfADIAZINE Top 1% Crm 20 gram) 1 deborah Topical. Comment: Desire [facility] Interdisciplinary Note - Mathieu e Manageron 10-01-2023 Interdisciplinary Note - Check Writing Machine Operator Interdisciplinary Note - Check Writing Machine Operator Pt is out of room for surgery, no family present. Will likely need po at[place] at [place], per Yovani ROCA. Pt is current with [facility] RN, PT and OT and plan to continue at [place], and pt is also current with HD at [facility]. Contact information provided and white board updated. [facility] Comment on above: Result Comment: Elec tronically Signed By: Vaibhav JOVEL, Kalli\.br\Date and Time Signed: 10/01/23 12:08 EDT Main OR Intraoperative Recor don 10-01-2023 Main OR Intraoperative Record Main OR Intraoperative Record IntraOp Document Type FT Summary Primary Physician: Stephan Loyd DPM Finalized Date/Time: 10/01/23 13:06:50 Pt. Name: CINTHYA WILSON.O.B./Sex: 1945 Female Med Rec #: [id number] Physician: Armando Munroe DO Financial #: [id number] Pt. Type: I Room/Bed: [place] [address] Admit/Disch: 09/29/23 12:47:59 - Institution: Case Times FT Entry 1 Patient Times In Room 10/01/23 12:21:00 Out Room 10/01/23 12:57:00 Procedure Times Start 10/01/23 12:36:00 Stop 10/01/23 12:53:00 Anesthesia Times Start 10/01/23 12:21:00 Stop 10/01/23 12:57:00 Last Modified By: Graham Cortes Ii 10/01/23 13:06:29 Case Attendance FT Entry 1 Entry 2 Entry 3 Case Attendee Loco HOCLOMB, SEO INTERN, Stephan Field DPM, CST, Wolf M N. Role Performed Anesthesiologist Surgeon - Primary MEDICAL DATA ENTRY CLERK/ Crimper Operator Time In 10/01/23 12:21:00 10/01/23 12:21:00 10/01/23 12:21:00 Time Out 10/01/23 12:57:00 10/01/23 12:57:00 10/01/23 12:57:00 Procedure TRANSMETATARSAL TRANSMETATARSAL TRANSMETATARSAL AMPUTATION(Right) AMPUTATION(Right) AMPUTATION(Right) Comments ASSIST Last Modified By: Graham Cortes Ii, Alfons Ii F Letrondo, Alfons Ii F 10/01/23 13:06:30 10/01/23 13:06:30 10/01/23 13:06:30 Entry 4 Entry 5 Case Attendee Graham Cortes Ii, Kendall R Role Performed Pile Driving Superintendent - Primary Scrub - Primary Time In 10/01/23 12:21:00 10/01/23 12:21:00 Time Out 10/01/23 12:57:00 10/01/23 12:57:00 Procedure TRANSMETATARSAL TRANSMETATARSAL AMPUTATION(Right) AMPUTATION(Right) Comments Last Modified By: Graham Cortes Ii, Alfons Ii F 10/01/23 13:06:30 10/01/23 13:06:30 Perioperative Protocols FT Pre-Care Text: Implements protective measures prior to operative or invasive procedure, confirms identity before the operative or invasive procedure, verifies operative procedure, surgical site, and laterality Entry 1 Procedure(s) TRANSMETATARSAL Patient Identity Birthday, ID Band AMPUTATION(Right) Verified (select at Check, Patient least 2): Participation Consents / H and P Anesthesia Consent, Operative Site Present Verified H&P, Surgery/Procedure Marking Verified Consent Surgical Site Yes Laterality Verified Yes Verified Procedure Verified Yes Correct Patient Yes Position Verified Availability Equipment, Medication Prep Dry No Verified (If Applicable) Time Out Loco HOLCOMB, MAURICE, Time Out Complete 10/01/23 12:36:00 Participants N., Caro DPM, Stephan R, Juan Pablo HUGGINS, Getachew M, Graham Cortes Ii, Laz Watts Outcomes Met? Yes Last Modified By: Graham Cortes Ii 10/01/23 12:43:17 Post-Care Text: The patient is free from signs and symptoms of injury caused by extraneous objects Allergy Information FT Pre-Care Text: Verifies allergies Entry 1 Allergies Reviewed? Yes Allergies Reviewed Self/Patient With Outcomes Met? Yes Last Modified By: Graham Cortes Ii 10/01/23 12:43:24 Post-Care Text: The patient received appropriate medication(s) safely administered during the perioperative period Surgical Procedures FT Entry 1 Procedure Description Procedure TRANSMETATARSAL Modifiers Right AMPUTATION Surgeon Description INCISION AND DRAINAGE FIRST RAY AMPUTATION RIGHT FOOT Primary Procedure Yes Primary Surgeon Stephan Loyd DPM Start 10/01/23 12:36:00 Stop 10/01/23 12:53:00 Anesthesia Type General Surgical Service Podiatry Wound Class 3 - Contaminated Last Modified By: Graham Cortes Ii 10/01/23 13:06:46 General Case Data FT Pre-Care Text: Classifies surgical wound, implements aseptic technique, initiates traffic control Entry 1 Case Information OR OR 2 FT Case Level Level 2 Wound Class 3 - Contaminated Specialty Podiatry Preop Diagnosis RIGHT FOOT INFECTION Postop Same As Preop Yes Postop Diagnosis RIGHT FOOT INFECTION Outcomes Met? Yes Last Modified By: Graham Cortes Ii 10/01/23 12:50:43 Post-Care Text: The patient is free from signs and symptoms of infection Skin Assessment (Pre Procedure) FT Pre-Care Text: Implements protective measures to prevent skin/ tissue injury due to thermal or mechanical sources Evaluates for signs and symptoms of physical injury to skin and tissue Entry 1 Skin Integrity Intact, Cantrall, Warm, & Skin Abnormality No Dry Outcomes Met? Yes Last Modified By: Graham Cortes Ii 10/01/23 12:50:34 Post-Care Text: The patient is free from signs and symptoms of injury caused by extraneous objects Patient Positioning FT Pre-Care Text: Identifies physical alterations that require additional precautions for procedure-specific positioning, verifies presence of prosthetics or corrective devices, positions the patient, evaluates the patient for signs and symptoms of injury as a result of positioning Entry 1 Procedure TRANSMETATARSAL Body Position Supine AMPUTATION(Right) Feet Uncrossed? Yes Left (more content not included)... Normal [facility] Main OR PACU I Recordon 09-11 Main OR PACU I Record Main OR PACU I Rec ord PACU Phase I Document Type FT Summary Primary Physician: Stephan Loyd DPM Finalized Date/Time: 10/01/23 13:45:53 Pt. Name: CINTHYA WILSON D.O.B./Sex: 1945 Female Med Rec #: [id number] Physician: Armando Munroe DO Financial #: [id number] Pt. Type: I Room/Bed: [place] [address] Admit/Disch: 09/29/23 12:47:59 - Institution: Case Times PACU I FT Pre-Care Text: Identifies barriers to communication and implements measures to provide psychological support Develops individualized plan of care, and ensures continuity of care Maintains patient's dignity and privacy, and maintains patient confidentiality Identifies and reports philosophical, cultural, and spiritual beliefs and values Identifies individual values and wishes concerning care Implements aseptic technique, and administers prescribed antibiotic therapy and immunizing agents as ordered Evaluates postoperative tissue perfusion Implements thermoregulation measures, and monitors body temperature Evaluates postoperative respiratory status Evaluates postoperative cardiac status Evaluates postoperative neurological status Assesses pain control, collaborated in initiating patient-controlled analgesia and implements alternative methods of pain control Verifies allergies, administers prescribed medications and solutions, evaluates response to medications Entry 1 In PACU I 10/01/23 12:58:00 Discharge from PACU 10/01/23 13:28:00 I Outcomes Met? Yes Last Modified By: ALEXA GREY RN 10/01/23 13:45:40 Post-Care Text: The patient demonstrates knowledge of the expected response to the operative or invasive procedure The patient's care is consistent with the individualized perioperative plan of care The patient's right to privacy is maintained The patient's value system, lifestyle, ethnicity, and culture are considered, respected, and incorporated into the perioperative plan of care The patient participates in decisions affecting his or her perioperative plan of care The patient is free from signs and symptoms of infection The patient has wound/tissue perfusion consistent with or improved from baseline levels established preoperatively The patient is at or returning to normothermia at the conclusion of the immediate postoperative period The patient's respiratory function is consistent with or improved from baseline levels established preoperatively The patient's cardiovascular status is consistent with or improved from baseline levels established preoperatively The patient's cardiovascular status is consistent with or improved from baseline levels established preoperatively The patient demonstrates and/or reports adequate pain control throughout the perioperative period The patient received appropriate medication(s), safely administered during the perioperative period Acuity Level PACU I FT Entry 1 Start Time 10/01/23 12:58:00 Stop Time 10/01/23 13:28:00 Acuity Level Acuity Level I Last Modified By: ALEXA GREY RN 10/01/23 13:45:49 Finalized By: ALEXA GREY RN Document Signatures Signed By: ALEXA GREY RN 10/01/23 13:45 Normal [facility] Main OR Preoperative Recordo n 10-01-2023 Main OR Preoperative Record Main OR Preoperative Record PreOp Document Type FT Summary Primary Physician: Stephan Loyd DPM Finalized Date/Time: 10/01/23 12:41:57 Pt. Name: CINTHYA WILSON /Sex: 1945 Female Med Rec #: [id number] Physician: Armando Munroe DO Financial #: [id number] Pt. Type: I Room/Bed: [facility] Admit/Disch: 09/29/23 12:47:59 - Institution: Case Times PreOp FT Pre-Care Text: Verifies consent for planned procedure, identifies individual values and wishes concerning care, includes family members in perioperative teaching Entry 1 Patient Times. In Pre Surgery 10/01/23 11:30:00 Out Pre Surgery 10/01/23 12:21:00 Outcomes Met? Yes Last Modified By: Graham Cortes Ii 10/01/23 12:41:54 Post-Care Text: The patient participates in decisions affecting his or her perioperative plan of care Finalized By: Graham Cortes Ii Document Signatures Signed By: Graham Cortes Ii 10/01/23 12:41 Normal [facility] Operative Reporton Operative Report Operative Report Patient: CINTHYA WILSON Age: 78 years Sex: Female : 1945 Associated Diagnoses: None Author: Stephan Loyd DPM Postoperative Information Procedure: Inicison and drainage with partial first ray amputation right Date/ Time: 10/01/2023 12:55:00 Preoperative Diagnosis: infected wound with osteomyelitis acute proximal phalanx right hallux . Postoperative Diagnosis: same. Performed by: Stephan Loyd DPM Specimens Removed: bone and soft tissue right hallux . Estimated Blood Loss: 5 ml. Complications: None. Anesthesia type: General. Special techniques: Warming device. Normal [facility] Comment on above: Result Comment: Elec tronically Signed By: Stephan Loyd DPM\Date and Time Signed: 10/01/23 13:07 EDT Outpatient Surgery Discharge Instructionon 10-01-2023 Outpatient Surgery Discharge Instruction Outpatient Surgery Discharge Instruction [place] [id number] Patient Discharge Instructions PERSON INFORMATION Name: CINTHYA WILSON Date of : 1945 Current Date: 10/01/2023 13:05:02 PHYSICIANS Admitting Physician: Armando Munroe DO Discharge Diagnosis: 1:Osteomyelitis of right foot; 2:Cellulitis; 3:CAD in cheesh-na artery; 4:Presence of automatic cardioverter/defibrillat or (AICD); 5:Chronic respiratory failure; 6:COPD mixed type; 7:Hypertension; 8:Hyperlipidemia; 9:Type 2 diabetes mellitus; 10:ESRD on dialysis; 11:Chronic GERD; 12:Anxiety and depression; Dependence on renal dialysis; Depression, unspecified CINTHYA WILSON has been given the following list of follow-up instructions, prescriptions, and patient education materials: PATIENT FOLLOW-UP INFORMATION Diet: Calorie Controlled- 2000 Calorie Diet Discharge Activity: Expect mild pain, Partial weight bearing Discharge Restrictions: No driving Call Your Doctor For: Persistent or heavy bleeding, Temperature above 101.5 degrees, Redness, swelling, or pus at operative site, Severe pain at the operative site, Persistent vomiting Wound Care Instructions: Do not remove dressing IF UNABLE TO CONTACT YOUR PHYSICIAN AND YOU FEEL IT IS AN EMERGENCY, GO TO THE NEAREST EMERGENCY ROOM OR CALL 911 I, CINTHYA WILSON, have received the attached patient education materials/instructions and have verbalized understanding: May we do a follow up call? Yes No I was present when discharge instructions were given Patient Signature Date Clinican/Nurse Signature Date Follow up: With: Address: When: Stephan Loyd [facility], [facility], [address], [place] [address] [facility]: c/o [facility], [address] [place] [address], [place] [address] In 6 days 10/07/2023 Comments: post op visit Type Location Start Finish [facility] Follow Up Visit (FT) FT.[facility] 10/07/2023 3:00 PM 10/07/2023 3:45 PM Confirmed Pharmacy Information: You may receive a survey from Ruby Cardozo asking you to rate your care experience. Your feedback is important and will help us understand what we do well and how we can improve the quality of care we provide to you, your loved ones and our community. It?s an honor to serve you. Thank you for choosing [facility] HERE ARE THE MEDICATION CHANGES THAT OCCURRED DURING YOUR HOSPITAL STAY Medications to Continue with No Changes Other Medications acetaminophen-oxycodone (acetaminophen-oxycodone 325 mg-5 mg Tab) 1 tab(s) Oral. ammonium lactate topical (ammonium lactate Top 12% Lotion) 1 Application Topical. atorvastatin (atorvastatin 40 mg Tab) 1 Tablets By Mouth every day. bisoprolol (bisoprolol 10 mg Tab) 1 Tablets By Mouth every day. busPIRone (busPIRone 10 mg Tab) 1 Tablets By Mouth 2 times a day. calcium acetate (calcium acetate 667 mg oral capsule) 3 Capsules By Mouth 4 times a day. cephalexin (cephalexin 250 mg Cap) 1 cap(s) Oral. citalopram (citalopram 40 mg Tab) 1 tab(s). cyclobenzaprine (cyclobenzaprine 10 mg Tab) 1 Tablets By Mouth 3 times a day. docusate (docusate sodium 100 mg Cap) 1 Capsules By Mouth 2 times a day. fluticasone/umeclidinium /vilanterol (Trelegy Ellipta 100 mcg-62.5 mcg-25 mcg inhalation powder) 1 Puffs Inhalation every day. furosemide (furosemide 20 mg Tab) 1 tab(s). insulin lispro (insulin lispro 100 units/mL injectable solution) Subcutaneous. mexiletine (mexiletine 200 mg Cap) 1 cap(s) Oral q8hr. midodrine (midodrine 10 mg oral tablet) 1 Tablets By Mouth 3 times a day. orphenadrine (orphenadrine 100 mg ER Tab) 1 tab(s) Oral. pramipexole (pramipexole 0.5 mg oral tablet) 1 Tablets By Mouth 3 times a day. pregabalin (pregabalin 50 mg Cap) 1 Capsules By Mouth every day. silver sulfADIAZINE topical (silver sulfADIAZINE Top 1% Crm 20 gram) 1 deborah Topical. PATIENT EDUCATION INFORMATION Instructions: Medication Leaflets: Normal [facility] Vanco TroughOrdered By: Symptify SYSTEM on 10-01-2023 Vanco Tr 17 microgram/mL Normal 10 - 20 mcg/mL [facility] Comment on above: Order Comment: Pre-H D level Performed By: #### 2 [id number] #### [facility] [address] [place] [address] eGFROrdered By: SYSTEM [employer] on 10-01-2023 eGFR 8 mL/min/1.73 m2 Low >=59mL/min/ 1 .73 m2 [facility] Comment on above: Order Comment: Order added by Discern Expert. Performed By: #### 1 [id number] #### [facility] [address] [place] [address] BMPon 09-30-2023 Anion gap [Moles/Vol] 19 mmol/L High 6-16 [facility] Comment on above: Performed By: #### 2 [id number] #### [facility] [address] [place] [address] Calcium [Mass/Vol] 9.9 mg/dL Normal 8.9-11.1 [facility] Comment on above: Performed By: #### 2 [id number] #### [facility] [address] [place] [address] Chloride [Moles/Vol] 90 mmol/L Low 101-111 [facility] Comment on above: Performed By: #### 2 [id number] #### [facility] [address] [place] [address] CO2 [Moles/Vol] 28 mmol/L Normal 21-31 [facility] Comment on above: Performed By: #### 2 [id number] #### [facility] [address] [place] [address] Creatinine [Mass/Vol] 3.8 mg/dL High 0.5-1.3 [facility] Comment on above: Performed By: #### 2 [id number] #### [facility] [address] [place] [address] Glucose [Mass/Vol] 111 mg/dL Normal 55-199 [facility] Comment on above: Performed By: #### 2 [id number] #### [facility] [address] [place] [address] Potassium [Moles/Vol] 4.6 mmol/L Normal 3.5-5.3 [facility] Comment on above: Performed By: #### 2 [id number] #### [facility] [address] [place] [address] Sodium [Moles/Vol] 132 mmol/L Low 135-145 [facility] Comment on above: Performed By: #### 2 [id number] #### [facility] [address] [place] [address] Urea nitrogen [Mass/Vol] 35 mg/dL High 5-21 [facility] Comment on above: Performed By: #### 2 [id number] #### [facility] [address] [place] [address] Urea nitrogen/Creatinine [Mass ratio] 9 No Units Low 10-20 [facility] Comment on above: Performed By: #### 2 [id number] #### [facility] [address] [place] [address] CBC w/ Auto Diffon 09-29- 4 Basophils/100 WBC (Bld) 0.4 % Normal 0.0-2.0 [facility] Comment on above: Performed By: #### 2 [id number] #### [facility] [address] [place] [address] Basophils/Leukocytes Auto (Bld) [Pure # fraction] 0.0 E9/L Normal 0.0-0.2 [facility] Comment on above: Performed By: #### 2 [id number] #### [facility] [address] [place] [address] Eosinophils (Bld) [#/Vol] 0.4 E9/L Normal 0.0-0.5 [facility] Comment on above: Performed By: #### 2 [id number] #### [facility] [address] [place] [address] Eosinophils/100 WBC (Bld) 5.4 % Normal 0.0-8.0 [facility] Comment on above: Performed By: #### 2 [id number] #### [facility] [address] [place] [address] Erythrocyte distribution width (RBC) [Ratio] 16.7 % High 10.9-14.2 [facility] Comment on above: Performed By: #### 2 [id number] #### [facility] [address] [place] [address] Hematocrit (Bld) [Volume fraction] 34.4 % Normal 34.0-46.0 [facility] Comment on above: Performed By: #### 2 [id number] #### [facility] [address] [place] [address] Hemoglobin (Bld) [Mass/Vol] 11.2 g/dL Low 12.0-16.0 [facility] Comment on above: Performed By: #### 2 [id number] #### [facility] [address] [place] [address] Lymphocytes (Bld) [#/Vol] 1.3 E9/L Normal 1.0-4.0 [facility] Comment on above: Performed By: #### 2 [id number] #### [facility] [address] [place] [address] Lymphocytes/100 WBC (Bld) 16.9 % Normal 14.0-50.0 [facility] Comment on above: Performed By: #### 2 [id number] #### [facility] [address] [place] [address] MCH (RBC) [Entitic mass] 30.1 pg Normal 27.0-34.0 [facility] Comment on above: Performed By: #### 2 [id number] #### [facility] [address] [place] [address] MCHC (RBC) [Mass/Vol] 32.5 g/dL Normal 31.4-36.0 [facility] Comment on above: Performed By: #### 2 [id number] #### [facility] [address] [place] [address] MCV (RBC) [Entitic vol] 92.4 fL Normal 80.0-100.0 [facility] Comment on above: Performed By: #### 2 [id number] #### [facility] [address] [place] [address] Monocytes (Bld) [#/Vol] 0.8 E9/L Normal 0.2-1.0 F [facility] Comment on above: Performed By: #### 2 [id number] #### [facility] [address] [place] [address] Neutrophils (Bld) [#/Vol] 5.2 E9/L Normal 2.0-7.5 [facility] Comment on above: Performed By: #### 2 [id number] #### [facility] [address] [place] [address] Neutrophils/100 WBC (Bld) 66.9 % Normal 36.0-75.0 [facility] Comment on above: Performed By: #### 2 [id number] #### [facility] [address] [place] [address] Platelet 261.0 E9/L Normal 150.0-500.0 [facility] Comment on above: Performed By: #### 2 [id number] #### [facility] [address] [place] [address] Platelet mean volume (Bld) [Entitic vol] 8.3 fL Normal 6.4-10.8 [facility] Comment on above: Performed By: #### 2 [id number] #### [facility] [address] [place] [address] RBC (Bld) [#/Vol] 3.7 E12/L Low 4.3-5.9 [facility] Comment on above: Performed By: #### 2 [id number] #### [facility] [address] [place] [address] WBC corrected for nucl RBC Auto (Bld) [#/Vol] 7.8 E9/L Normal 4.0-11.0 [facility] Comment on above: Performed By: #### 2 [id number] #### [facility] [address] [place] [address] CHEMISTRYOrdered By: SYSTEM SYSTEM on 09-30-2023 Calcium [Mass/Vol] 9.9 mg/dL Normal 8.9 - 11. 1 mg/dL [facility] Glucose [Mass/Vol] 111 mg/dL Normal 55 - 199 mg/dL [facility] Urea nitrogen/Creatinine [Mass ratio] 9 mg/mg Low - [facility] CHEMISTRYOrdered By: Danish Alston on 09-30-2023 HbA1c (Bld) [Mass fraction] 7.1 % High <=5.9% [facility] ChemAutoSS Capillary Glucose POCon 09-11 Glucose [Mass/Vol] 186 mg/dL High 55-99 [facility] Comment on above: Result Comment: Nellie abrams RN/ Performed By: #### 2 [id number] #### [facility] [address] [place] [address] Glucose [Mass/Vol] 114 mg/dL High 55-99 [facility] Comment on above: Result Comment: Monika dmitriy Meter Performed By: #### 2 [id number] #### [facility] [address] [place] [address] Glucose [Mass/Vol] 127 mg/dL High 55-99 [facility] Comment on above: Result Comment: Nellie abrams RN/ Performed By: #### 2 [id number] #### [facility] [address] [place] [address] Glucose [Mass/Vol] 119 mg/dL High 55-99 [facility] Comment on above: Performed By: #### 2 [id number] #### [facility] [address] [place] [address] [id number] 09-30-2023 HbA1c (Bld) [Mass fraction] 7.1 % High <=5.9 [facility] Comment on above: Performed By: #### 7 [id number] #### [facility] [address] [place] [address] Interdisciplinary Note - Mathieu e Manageron 09-30-2023 Interdisciplinary Note - Check Writing Machine Operator Interdisciplinary Note - Check Writing Machine Operator CRM to room to discuss DC planning. Patient is awake, alert and oriented. She is from home with her Son. He will transport at [place]. She declined CRM to call . Patient verified PCP, DME and insurance. Patient is here as inpatient, medicare form was completed. Patient is here with Big toe infection, Osteomyelitis. Patient is assigned to Yovani VILLALTA, see notes. Patient has ID, Neph, Podiatry and DM ed on case. Patient is ESRD at [facility]. Patient is on 3L of oxygen at home. Patient uses a rollator. She is current with [facility]. If IV ABX needed she would like it with HD if they can. Patient declined any further DC needs. Patient was provided CRM contact, deb board updated. CRM following Normal [facility] Comment on above: Result Comment: Elec tronically Signed By: Jessica Short\.br\Date and Time Signed: 09/30/23 12:19 EDT eGFRon 09-30-2023 eGFR 12 mL/min/1.73 m2 Low >=59 [facility] Comment on above: Order Comment: Order added by Discern Expert. Performed By: #### 1 [id number] #### [facility] [address] [place] [address] BB Draw & Holdon 09-29-2023 BB D&H Sample drawn for Blo od Ba Normal [facility] Comment on above: Performed By: #### 1 [id number] #### [facility] [address] [place] [address] CBC w/ Auto Diffon 4 Basophils/100 WBC (Bld) 0.5 % Normal 0.0-2.0 [facility] Comment on above: Performed By: #### 2 [id number] #### [facility] [address] [place] [address] Basophils/Leukocytes Auto (Bld) [Pure # fraction] 0.1 E9/L Normal 0.0-0.2 [facility] Comment on above: Performed By: #### 2 [id number] #### [facility] [address] [place] [address] Eosinophils (Bld) [#/Vol] 0.2 E9/L Normal 0.0-0.5 [facility] Comment on above: Performed By: #### 2 [id number] #### [facility] [address] [place] [address] Eosinophils/100 WBC (Bld) 2.1 % Normal 0.0-8.0 [facility] Comment on above: Performed By: #### 2 [id number] #### [facility] [address] [place] [address] Erythrocyte distribution width (RBC) [Ratio] 16.9 % High 10.9-14.2 [facility] Comment on above: Performed By: #### 2 [id number] #### [facility] [address] [place] [address] Hematocrit (Bld) [Volume fraction] 36.6 % Normal 34.0-46.0 [facility] Comment on above: Performed By: #### 2 [id number] #### [facility] [address] [place] [address] Hemoglobin (Bld) [Mass/Vol] 11.9 g/dL Low 12.0-16.0 [facility] Comment on above: Performed By: #### 2 [id number] #### [facility] [address] [place] [address] Lymphocytes (Bld) [#/Vol] 1.0 E9/L Normal 1.0-4.0 [facility] Comment on above: Performed By: #### 2 [id number] #### [facility] [address] [place] [address] Lymphocytes/100 WBC (Bld) 9.4 % Low 14.0-50.0 [facility] Comment on above: Performed By: #### 2 [id number] #### [facility] [address] [place] [address] MCH (RBC) [Entitic mass] 30.2 pg Normal 27.0-34.0 [facility] Comment on above: Performed By: #### 2 [id number] #### [facility] [address] [place] [address] MCHC (RBC) [Mass/Vol] 32.5 g/dL Normal 31.4-36.0 [facility] Comment on above: Performed By: #### 2 134625 #### [facility] [address] [place] [address] MCV (RBC) [Entitic vol] 92.8 fL Normal 80.0-100.0 F [facility] Comment on above: Performed By: #### 2 [id number] #### [facility] [address] [place] [address] Monocytes (Bld) [#/Vol] 0.6 E9/L Normal 0.2-1.0 [facility] Comment on above: Performed By: #### 2 [id number] #### [facility] [address] [place] [address] Neutrophils (Bld) [#/Vol] 8.7 E9/L High 2.0-7.5 [facility] Comment on above: Performed By: #### 2 [id number] #### [facility] [address] [place] [address] Neutrophils/100 WBC (Bld) 82.0 % High 36.0-75.0 [facility] Comment on above: Performed By: #### 2 [id number] #### [facility] [address] [place] [address] Platelet mean volume (Bld) [Entitic vol] 8.7 fL Normal 6.4-10.8 [facility] Comment on above: Performed By: #### 2 [id number] #### [facility] [address] [place] [address] Platelets (Bld) [#/Vol] 255.0 E9/L Normal 150.0-500.0 [facility] Comment on above: Performed By: #### 2 [id number] #### [facility] [address] [place] [address] RBC (Bld) [#/Vol] 3.9 E12/L Low 4.3-5.9 [facility] Comment on above: Performed By: #### 2 308393 #### [facility] [address] [place] [address] WBC corrected for nucl RBC Auto (Bld) [#/Vol] 10.6 E9/L Normal 4.0-11.0 [facility] Comment on above: Performed By: #### 2 [id number] #### [facility] [address] [place] [address] CHEMISTRYOrdered By: SYSTEM SYSTEM on 09-29-2023 Lactic Acid Lvl 1.2 mmol/L Normal 0.5 - 2.2 mmol/L [facility] Albumin [Mass/Vol] 4.1 g/dL Normal 3.3 - 5.0 gm/dL [facility] Albumin/Globulin [Mass ratio] 1.1 {ratio} Normal 1.1 - 2.2 [facility] ALP [Catalytic activity/Vol] 150 [iU]/d High 21 - 98 Int._Unit/L [facility] ALT No additional P-5'-P [Catalytic activity/Vol] 11 [iU]/d Normal 6 - 46 Int._Unit/L [facility] AST [Catalytic activity/Vol] 19 [iU]/d Normal 5 - 43 Int._Unit/L [facility] Bilirubin [Mass/Vol] 0.4 mg/dL Normal 0.0 - 1 .1 mg/dL [facility] Globulin (S) [Mass/Vol] 3.7 g/dL Normal 1.4 - 4.0 gm/dL [facility] Lactic Acid Lvl 1.3 mmol/L Normal 0.5 - 2.2 mmol/L [facility] Protein [Mass/Vol] 7.8 g/dL Normal 6.0 - 7.8 gm/dL [facility] Troponin HS 25.80 pg/mL Normal 10.10 - 27.10 pg/mL [facility] Comment on above: Interpretive Data: T he 95% CI (Confidence Interval) PPV (Positive Predictive Value) for myocardial infarction in females is 38 pg/mL, in males 51 pg/mL. The results should be used in conjunction with clinical conditions of myocardial infarction. (Access High Sensitivity Troponin I Instructions For Use, Tyson Soco, September 2017) CMPon 09-29-2023 Albumin [Mass/Vol] 4.1 g/dL Normal 3.3-5.0 [facility] Comment on above: Performed By: #### 2 [id number] #### [facility] [address] [place] [address] Albumin/Globulin (S) [Mass conc ratio] 1.1 Normal 1.1-2.2 [facility] Comment on above: Performed By: #### 2 [id number] #### [facility] [address] [place] [address] ALP [Catalytic activity/Vol] 150 Int._Unit/L High [facility] Comment on above: Performed By: #### 2 [id number] #### [facility] [address] [place] [address] ALT No additional P-5'-P [Catalytic activity/Vol] 11 Int._Unit/L Normal 6-46 [facility] Comment on above: Performed By: #### 2 [id number] #### [facility] [address] [place] [address] Anion gap [Moles/Vol] 19 mmol/L High 6-16 [facility] Comment on above: Performed By: #### 2 [id number] #### [facility] [address] [place] [address] AST [Catalytic activity/Vol] 19 Int._Unit/L Normal 5-43 [facility] Comment on above: Performed By: #### 2 [id number] #### [facility] [address] [place] [address] Bilirubin [Mass/Vol] 0.4 mg/dL Normal 0.0-1.1 [facility] Comment on above: Performed By: #### 2 [id number] #### [facility] [address] [place] [address] Calcium [Mass/Vol] 10.1 mg/dL Normal 8.9-11.1 [facility] Comment on above: Performed By: #### 2 [id number] #### [facility] [address] [place] [address] Chloride [Moles/Vol] 89 mmol/L Low 101-111 [facility] Comment on above: Performed By: #### 2 [id number] #### [facility] [address] [place] [address] CO2 [Moles/Vol] 28 mmol/L Normal 21-31 [facility] Comment on above: Performed By: #### 2 [id number] #### [facility] [address] [place] [address] Creatinine [Mass/Vol] 2.9 mg/dL High 0.5-1.3 [facility] Comment on above: Performed By: #### 2 [id number] #### [facility] [address] [place] [address] Globulin (S) [Mass/Vol] 3.7 g/dL Normal 1.4-4.0 [facility] Comment on above: Performed By: #### 2 [id number] #### [facility] [address] [place] [address] Glucose [Mass/Vol] 181 mg/dL Normal 55-199 [facility] Comment on above: Performed By: #### 2 [id number] #### [facility] [address] [place] [address] Potassium [Moles/Vol] 4.0 mmol/L Normal 3.5-5.3 [facility] Comment on above: Performed By: #### 2 [id number] #### [facility] [address] [place] [address] Protein [Mass/Vol] 7.8 g/dL Normal 6.0-7.8 [facility] Comment on above: Performed By: #### 2 [id number] #### [facility] [address] [place] [address] Sodium [Moles/Vol] 132 mmol/L Low 135-145 [facility] Comment on above: Performed By: #### 2 [id number] #### [facility] [address] [place] [address] Urea nitrogen [Mass/Vol] 21 mg/dL Normal 5-21 [facility] Comment on above: Performed By: #### 2 [id number] #### [facility] [address] [place] [address] Urea nitrogen/Creatinine [Mass ratio] 7 No Units Low 10-20 [facility] Comment on above: Performed By: #### 2 [id number] #### [facility] [address] [place] [address] COAGULATIONOrdered By: Andrei Doss on 09-29-2023 aPTT Coag (PPP) [Time] 38.4 s High 25.1 - 36.5 second(s) [facility] Comment on above: Interpretive Data: P arameter 15 days - 4 weeks 1 - 5 months 6 - 11 months 1 - 5 years 6 - 10 years 11 - 17 years PTT Mean: 35.4 (27.6-45.6) Mean: 33.5 (24.8-40.7) Mean: 32.4 (25.1-40.7) Mean: 31.6 (24.0-39.2) Mean: 31.6 (26.9-38.7) Mean: 31.0 (24.6-38.4) Pediatric Reference ranges were obtained from a study by Amando Larry et alLucia prepared from 1437 samples obtained at 7 different centers using the same coagulation reagent and instrumentation as [facility] [place]. Currently there are no coagulation studies available worldwide for children to 14 days, and no normal ranges. Heparin therapeutic range (represented by Anti-Factor Xa activity of 0.2 - 0.4 U/mL) corresponds to PTT of 56.6 - 109.0 sec. INR Coag (PPP) [Relative time] 0.99 {INR} Invalid Interpretation Code [facility] Comment on above: Interpretive Data: I NR results are specifically intended to assess patients stabilized on long-term Anticoagulation therapy suggested INR s Less Intensive Anticoagulation 2.0 3.0 Conventional Range 3.0 4.5 PT Coag (PPP) [Time] 11.1 s Normal 9.4 - 1 2.5 second(s) [facility] Comment on above: Interpretive Data: 1 5 days - 4 weeks 1 - 5 months 6 -11 months 1-5 years 6-10 years 11 -17 years Mean: 11.2 (9.5-12.6) Mean: 11.0 (9.7-12.8) Mean: 11.0 (9.8-13.0) Mean: 11.3 (9.9-13.4) Mean: 11.7 (10.0-14.6) Mean: 11.8 (10.0 - 14.1) Pediatric Reference ranges were obtained from a study by Amando Larry et alLucia prepared from 1437 samples obtained at 7 different centers using the same coagulation reagent and instrumentation as [facility]. Currently there are no coagulation studies available worldwide for children to 14 days, and no normal ranges. Capillary Glucose POCon 09-10 Glucose [Mass/Vol] 125 mg/dL High 55-99 [facility] Comment on above: Result Comment: Nellie abrams RN/ Performed By: #### 2 [id number] #### [facility] [address] [place] [address] Glucose [Mass/Vol] 132 mg/dL High 55-99 [facility] Comment on above: Result Comment: Nellie abrams RN/ Performed By: #### 2 [id number] #### [facility] [address] [place] [address] Glucose [Mass/Vol] 101 mg/dL High 55-99 [facility] Comment on above: Result Comment: Monika dmitriy Meter Performed By: #### 2 [id number] #### [facility] [address] [place] [address] ED Clinical Summaryon 2023 ED Clinical Summary ED Clinical Summary [address] [address] ED Clinical Summary Person Information Name: CINTHYA WILSON/[facility] Age: 78 Years : 1945 Sex: Female Language: Iraqi PCP: LILY DEL REAL MD Marital Status: Single Phone: [phone] Visit Id: Visit Reason: Skin problem; Toe pain-swelling; BIG TOE ON RIGHT FOOT INFECTED Speciality: Acuity: 4 Enc Type: Inpatient Med Service: Emergency Arrival: 09/29/2023 12:47:59 Discharge: LOS: 000 03:10 Checkin: 09/29/2023 12:47:59 Checkout: 09/29/2023 15:57:42 Dispo Type: Admitted as IP to this [facility] EVENTS: Event Name Event Status Request Date/Time Start Date/Time Complete Date/Time Arrive Complete 09/29/2023 12:47:59 09/29/2023 12:47:59 09/29/2023 12:47:59 Document Home Meds Request 09/29/2023 12:47:59 Triage Complete 09/29/2023 12:47:59 09/29/2023 12:59:01 09/29/2023 12:59:01 Bed Assign Complete 09/29/2023 12:51:20 09/29/2023 12:51:20 09/29/2023 12:51:20 Dr Exam Complete 09/29/2023 12:51:20 09/29/2023 12:54:27 09/29/2023 12:54:27 RN Exam Complete 09/29/2023 12:51:20 09/29/2023 14:31:15 09/29/2023 14:31:15 Registration Complete 09/29/2023 12:54:27 09/29/2023 13:00:32 09/29/2023 13:01:01 Dr Exam Complete 09/29/2023 12:54:36 09/29/2023 12:54:36 09/29/2023 12:54:36 Reg Complete Request 09/29/2023 13:01:01 Reg Bed Request Complete 09/29/2023 13:01:01 09/29/2023 13:01:01 09/29/2023 13:01:01 EKG Complete 09/29/2023 13:16:15 09/29/2023 14:06:23 Pending Labs Request 09/29/2023 13:16:15 Lab Request 09/29/2023 13:16:15 X-Ray Complete 09/29/2023 13:16:15 09/29/2023 14:01:29 09/29/2023 14:24:24 RT Request 09/29/2023 13:16:15 Pending Labs Complete 09/29/2023 13:53:39 09/29/2023 13:53:39 09/29/2023 14:18:55 Lab Complete 09/29/2023 13:53:39 09/29/2023 13:53:39 09/29/2023 14:18:55 Pending Labs Complete 09/29/2023 13:58:29 09/29/2023 13:58:29 09/29/2023 14:34:25 Blood Collect Start 09/29/2023 13:58:29 09/29/2023 13:58:29 Wet Read Complete 09/29/2023 14:24:24 09/29/2023 14:47:05 09/29/2023 14:47:05 Meds Admin Cancel 09/29/2023 14:26:24 09/29/2023 14:51:08 Fall Risk Request 09/29/2023 14:31:16 Bed Request Request 09/29/2023 14:37:49 Reg Bed Request Complete 09/29/2023 14:37:49 09/29/2023 14:44:35 09/29/2023 14:44:35 Admit Request 09/29/2023 14:37:49 Meds Admin Complete 09/29/2023 14:38:02 09/29/2023 15:17:06 Consult Request 09/29/2023 14:39:53 Hospitalist Consult Request 09/29/2023 14:39:54 Consult Request 09/29/2023 14:40:20 Patient Care Request 09/29/2023 14:44:36 Patient Care Request 09/29/2023 14:44:36 Patient Care Request 09/29/2023 14:44:37 Patient Care Request 09/29/2023 14:44:37 Medicare Form Complete 09/29/2023 14:44:38 09/29/2023 15:22:59 Patient Care Request 09/29/2023 14:44:39 Patient Care Request 09/29/2023 14:44:39 Meds Admin Request 09/29/2023 14:51:27 Meds Admin Complete 09/29/2023 14:57:27 09/29/2023 15:17:07 US Request 09/29/2023 15:07:24 Meds Admin Request 09/29/2023 15:39:01 Meds Admin Cancel 09/29/2023 15:40:34 09/29/2023 15:46:24 Patient Care Request 09/29/2023 15:42:41 Pending Labs Request 09/29/2023 15:42:41 Lab Request 09/29/2023 15:42:41 Meds Admin Request 09/29/2023 15:42:41 RT Request 09/29/2023 15:42:41 RT Tx/ABG Request 09/29/2023 15:42:41 Meds Admin Request 09/29/2023 15:46:24 Pending Labs Request 09/29/2023 15:51:26 Lab Request 09/29/2023 15:51:26 Consult Request 09/29/2023 15:54:07 Consult Request 09/29/2023 15:54:33 ADDRESS: [address] [place] [phone] PHYS DOC NOTES: MEDICAL INFORMATION: Prescriptions Given: PATIENT EDUCATION INFORMATION: Instructions: Follow up: DIAGNOSIS: 1:Osteomyelitis of right foot; 2:Cellulitis; 3:CAD in cheesh-na artery; 4:Presence of automatic cardioverter/defibrillat or (AICD); 5:Chronic respiratory failure; 6:COPD mixed type; 7:Hypertension; 8:Hyperlipidemia; 9:Type 2 diabetes mellitus; 10:ESRD on dialysis; 11:Chronic GERD; 12:Anxiety and depression; Dependence on renal dialysis; Depression, unspecified Normal [facility] ED Note-Physicianon 09-29-19 ED Note-Physician ED Note-Physician Basic Information Time Seen: Power BRYANT, Zackary Cuevas 09/29/2023 12:[address] Loyd for right foot sore on great toe. pt states it is infected. History of Present Illness A 78-year-old female reports to the emergency department with chief complaint of great right foot sore/infection. Reports that this is been worsening over the last 3 days. She states that she was recently on antibiotics, and it seems like it did not help. Reports is the worst it ever been. Reports redness increasing into her foot. Reports that she is diabetic. She reports that she does not have any fevers or chills or nausea at this time. She reports that she is allergic to gabapentin as well as lisinopril. She states that she was on antibiotics and did seem to clear it up, but has now worsened. Review of Systems No other aggravating or relieving factors no other associated symptoms no other prior treatments or complaints. Family: Reviewed and noncontributory Social: lives at home Review of systems negative unless otherwise specified in the HPI. Physical Exam Vitals & Measurements T: 36.4 ?C(Oral) HR: 59(Monitored) RR: 16 BP: 110/58 SpO2: 100% HT: 163 cm WT: 61 kg BMI: 22.96 General: The patient appears well and in no apparent distress. Patient is resting comfortably on bed. Afebrile there is a circular Skin: Warm, dry, no pallor noted. Approximately 1 cm home that has purulent discharge located on the great right toe, with surrounding sloughing tissue around this area. The great great toe is slightly discolored enthesis more of a purplish discoloration. There is surrounding erythema that extends into the midfoot open to the right ankle. Warmth with palpation. Head: Normocephalic, atraumatic Neck: No JVD Eye: PERRLA, EOMI ENT: Moist mucus membranes Cardiovascular: Regular rate normal peripheral perfusion. Pedal pulses +2 bilaterally Respiratory: No respiratory distress no accessory muscle use no obvious audible wheezing Chest Wall: no deformity Musculoskeletal: normal ROM, no deformity, no swelling GI: No obvious distention soft nontender nondistended no guarding rebounding or rigidity Neurological: A&O moves all extremities equal strength and symmetry Psychiatric: Cooperative and appropriate Medical Decision Making MEDICAL DECISION MAKING Number and Complexity of Problems Differential Diagnosis: [] [facility] Data External documents reviewed: [] My EKG interpretation: reviewed My CT interpretation: [] My X-ray interpretation: reviewed My Ultrasound interpretation: [] Decision rules/scores evaluated: [] Discussed with: [] Treatment and Disposition ED Course: 78-year-old female reports the emergency department chief complaint of infection of great right toe/foot. Reports this began and worsening over the last 3 days. States that she does follow-up with Dr. Ugalde with this. Reports that has been on antibiotics recently, seems not be working. Reports that she is type II diabetic. She states that she is just worsening. Reports having more pain. Exam the patient is consistent with a nonhealing wound of her right foot, with increasing cellulitis in her right leg. No signs of sepsis at this time. Due to concerns we do a full septic workup though. Laboratory noted. No acute changes seen with lab work. She is a dialysis patient. X-ray did feel appears to be osteomyelitis. After failing outpatient antibiotics, patient be admitted for IV antibiotics. I did discuss the case with Dr. Julius Loyd, who was comfortable being consulted and having the patient admitted. Discussed case with hospitalist who is agreeable with admission. Shared decision making: [] Code status: [] Assessment/Plan 1. Osteomyelitis of right foot (M86.9: Osteomyelitis, unspecified) 2. Cellulitis (L03.90: Cellulitis, unspecified) 3. CAD in cheesh-na artery (I25.10: Atherosclerotic heart disease of cheesh-na coronary artery without angina pectoris) 4. Presence of automatic cardioverter/defibrillat or (AICD) (Z95.810: Presence of automatic (implantable) cardiac defibrillator) 5. Chronic respiratory failure (J96.10: Chronic respiratory failure, unspecified whether with hypoxia or hypercapnia) 6. COPD mixed type (J44.9: Chronic obstructive pulmonary disease, unspecified) 7. Hypertension (I10: Essential (primary) hypertension) 8. Hyperlipidemia (E78.5: Hyperlipidemia, unspecified) 9. Type 2 diabetes mellitus (E11.9: Type 2 diabetes mellitus without complications) 10. ESRD on dialysis (N18.6: End stage renal disease) 11. Chronic GERD (K21.9: Gastro-esophageal reflux disease without esophagitis) 12. Anxiety and depression (F41.9: Anxiety disorder, unspecified) Dependence on renal dialysis (Z99.2: Dependence on renal dialysis) Depression, unspecified (F32.A: Depression, unspecified) Orders: cefepime + Sodium Chloride 0.9% intravenous solution 50 mL, 1,000 mg = 1 EA, IV Piggyback, Once, Stop date 09/29/23 14:37:00 ED (more content not included)... Normal [facility] Comment on above: Result Comment: Elec tronically Signed By: Zackary Steve PA-C\.br\Date and Time Signed: 09/29/23 16:14 EDT\.br\Electronically Co-Signed By: Marcel Mays DO\.br\Date and Time Co-Signed: 09/29/23 19:05 EDT ED Patient Education Noteon 09-29-2023 ED Patient Education Note ED Patient Education Note Normal [facility] ED Patient Summaryon 024 ED Patient Summary ED Patient Summary [place] [address] Patient Discharge Instructions Person Information Name: CINTHYA WILSON Age: 78 Years Arrival Date: 09/29/2023 12:47:59 Discharge Diagnosis: 1:Osteomyelitis of right foot; 2:Cellulitis; 3:CAD in cheesh-na artery; 4:Presence of automatic cardioverter/defibrillat or (AICD); 5:Chronic respiratory failure; 6:COPD mixed type; 7:Hypertension; 8:Hyperlipidemia; 9:Type 2 diabetes mellitus; 10:ESRD on dialysis; 11:Chronic GERD; 12:Anxiety and depression; Dependence on renal dialysis; Depression, unspecified Primary Care Physician: LILY DEL REAL MD Provider Information Primary Provider: Marcel Mays DO [employer] Consultant:None The exam and treatment you received in the Emergency Department were for an urgent problem and are not intended as complete care. It is important that you follow up with a doctor, nurse practitioner, or physician?s library clerical assistant for ongoing care. If your symptoms become worse or you do not improve as expected and you are unable to reach your usual health care provider, you should return to the Emergency Department. We are available 24 hours a day. CINTHYA WILSON has been given the following list of patient education materials, prescriptions and follow-up instructions: Follow-up Instructions: In the event that this physician does not participate in your insurance network, please consult with your insurance company to find a nearby participating provider. Patient Education Materials: A MESSAGE TO ALL PATIENTS REGARDING OPIOIDS PRESCRIPTION OPIOIDS: WHAT YOU NEED TO KNOW Prescription opioids can be used to help relieve oweuquif-ky-nbwvfc pain and are often prescribed following a surgery or injury, or for certain health conditions. These medications can be an important part of the treatment but also come with serious risks. It is important to work with your healthcare provider to make sure you are getting the safest, most effective care. WHAT ARE THE RISKS AND SIDE EFFECTS OF OPIOID USE? Prescription opioids carry serious risks of addiction and overdose, especially with prolonged use. An opioid overdose, often marked by slowed breathing, can cause sudden . The use of prescription opioids can have a number of side effects as well, even when taken as directed: ? Tolerance?meaning you might need to take more of the medication for the same pain relief ? Physical dependence?meaning you have symptoms of withdrawal when a medication is stopped ? Increased sensitivity to pain ? Constipation ? Nausea, vomiting, and dry mouth ? Sleepiness and dizziness ? Confusion ? Depression ? Low levels of testosterone that can result in lower sex drive, energy, and strength ? Itching and sweating RISKS ARE GREATER WITH: ? History of drug misuse, substance use disorder, or overdose ? Mental health conditions (such as depression or anxiety) ? Sleep apnea ? Older age (65 years and older) ? Avoid alcohol while taking prescription opioids. Also, unless specifically advised by your health care provider, medications to avoid include: ? Benzodiazepines (such as Xanax or Valium) ? Muscle relaxants (such as Soma or Flexeril) ? Hypnotics (such as Ambien or Lunesta) ? Other prescription opioids KNOW YOUR OPTIONS Talk to your health care provider about ways to manage your pain that don?t involve prescription opioids. Some of these options may actually work better and have fewer risks and side effects. Options may include: ? Pain relievers such as acetaminophen, ibuprofen, and naproxen ? Some medication that are also used for depression or seizures ? Physical therapy and exercise ? Cognitive behavioral therapy, a psychological, goal-directed approach, in which patients learn how to modify physical, behavioral, and emotional triggers of pain and stress. IF YOU ARE PRESCRIBED OPIOIDS FOR PAIN: ? Never take opioids in greater amounts or more often than prescribed. ? Follow up with your primary health care provider. o Work together to create a plan on how to manage your pain. o Talk about ways to help manage your pain that don?t involve prescription opioids. o Talk about any and all concerns and side effects. ? Help prevent misuse and abuse o Never sell or share prescription opioids. o Never use another person?s prescription opioids. ? Store prescription opioids in a secure place and out of reach of others (this may include visitors, children, friends, and family). ? Safely dispose of unused prescription opioids: Find your community drug take-back program or your pharmacy mail-back program, or flush them down the toilet, following guidance from the Food and Drug Administration (www.fda.gov/Drugs/Resou rcesForYou). ? Visit www.cdc.gov/drugoverdose to learn about the risks of opioids abuse and overdose. ? (more content not included)... Normal [facility] Lactic Acidon 09-29-2023 Lactic Acid Lvl 1.2 mmol/L Normal 0.5-2.2 [facility] Comment on above: Performed By: #### 2 [id number] #### [facility] [address] [place] [address] Lactic Acid Lvl 1.3 mmol/L Normal 0.5-2.2 [facility] Comment on above: Performed By: #### 2 [id number] #### [facility] [address] [place] [address] No Panel InformationOrdered By: Stacy Orozco on 09-29-2023 Blood Culture Charcoal Micrococcus and R elated species No standards available for susceptibility testing on this organism. In 1 of 2 blood culture bottles drawn. Isolated from aerobic bottle Probable contaminant. Preliminary gram stain result of gram positive cocci in clusters Result called to Yovani Ledbetter CNP by [facility] and results read back for confirmation on 10/01/2023 13:48:03 [facility] No Panel InformationOrdered By: ALEXANDRIAPROCESSSERVER MICROBIOLOGY on 09-29-2023 Blood Culture Charcoal No growth at 4 da ys. Final to follow at 7 days. [facility] PT & PTTon 09-29-2023 aPTT Coag (PPP) [Time] 38.4 second(s) High 25.1-36.5 [facility] Comment on above: Result Comment: Para meter 15 days - 4 weeks 1 - 5 months 6 - 11 months 1 - 5 years 6 - 10 years 11 - 17 years PTT Mean: 35.4 (27.6-45.6) Mean: 33.5 (24.8-40.7) Mean: 32.4 (25.1-40.7) Mean: 31.6 (24.0-39.2) Mean: 31.6 (26.9-38.7) Mean: 31.0 (24.6-38.4) Pediatric Reference ranges were obtained from a study by Amando Larry et al. prepared from 1437 samples obtained at 7 different centers using the same coagulation reagent and instrumentation as [facility] [place]. Currently there are no coagulation studies available worldwide for children to 14 days, and no normal ranges. Heparin therapeutic range (represented by Anti-Factor Xa activity of 0.2 - 0.4 U/mL) corresponds to PTT of 56.6 - 109.0 sec. Performed By: #### 1 [id number] #### [facility] [address] [place] [address] INR Coag (PPP) [Relative time] 0.99 {INR} Invalid Interpretation Code [facility] Comment on above: Result Comment: INR results are specifically intended to assess patients stabilized on long-term Anticoagulation therapy suggested INR?s ?Less Intensive Anticoagulation? 2.0 ? 3.0 Conventional Range 3.0 ? 4.5 Performed By: #### 1 [id number] #### [facility] [address] [place] [address] PT Coag (PPP) [Time] 11.1 second(s) Normal 9.4-12.5 [facility] Comment on above: Result Comment: 15 d ays - 4 weeks 1 - 5 months 6 -11 months 1-5 years 6-10 years 11 -17 years Mean: 11.2 (9.5-12.6) Mean: 11.0 (9.7-12.8) Mean: 11.0 (9.8-13.0) Mean: 11.3 (9.9-13.4) Mean: 11.7 (10.0-14.6) Mean: 11.8 (10.0 - 14.1) Pediatric Reference ranges were obtained from a study by Amando Larry et al. prepared from 1437 samples obtained at 7 different centers using the same coagulation reagent and instrumentation as [facility] [place]. Currently there are no coagulation studies available worldwide for children to 14 days, and no normal ranges. Performed By: #### 1 [id number] #### [facility] [address] [place] [address] Troponinon 09-29-2023 Troponin HS 25.80 pg/mL Normal 10.10-27.10 [facility] Comment on above: Result Comment: The 95% CI (Confidence Interval) PPV (Positive Predictive Value) for myocardial infarction in females is 38 pg/mL, in males 51 pg/mL. The results should be used in conjunction with clinical conditions of myocardial infarction. (Access High Sensitivity Troponin I Instructions For Use, [employer] [place], September 2017) Performed By: #### 2 [id number] #### [facility] [address] [place] [address] XR Chest Single Viewon 09-28 XR Chest Single View Exam Date/Time: 09/29/2023 14:23 EDT Reason for Exam: Shortness of breath (SOB) Report IMPRESSION: SMALL BILATERAL PLEURAL EFFUSIONS. EXAM: XR Chest Single View History: Shortness of breath Technique: Portable AP view of the chest. Comparison: None available Findings: Right-sided cardiac defibrillator is present. Atherosclerotic calcification of the thoracic aorta. The cardiomediastinal silhouette is within normal limits. Small bilateral pleural effusions, right greater than left. No consolidation or pneumothorax. Posterior changes of right shoulder arthroplasty. Advanced degenerative changes of the left shoulder. No acute osseous abnormality. Ordering Provider: Zackary Steve FINAL REPORT Dictated: 09/29/2023 2:44 pm Yamileth Astorga DO Signed (Electronic Signature): 09/29/2023 2:44 pm Signed by: Yamileth Astorga DO Transcribed by: YENIFER Technologist: CC Technical Comments Radiation Dose: Ka,r in mGy = na DAP = na Normal [facility] XR Foot 3+ Views Righton XR Foot 3+ Views Right Exam Date/Time: 09/29/2023 14:24 EDT Reason for Exam: Pain, Non Traumatic Report IMPRESSION: INTERVAL DEVELOPMENT OF A FRACTURE OF THE DISTAL ASPECT OF THE FIRST PROXIMAL PHALANX POSSIBLY SECONDARY TO OSTEOMYELITIS. EROSIONS OF THE DISTAL PHALANX OF THE GREAT TOE SUGGESTING OSTEOMYELITIS ARE AGAIN IDENTIFIED. EXAM: XR Foot 3+ Views Right COMPARISON: Radiographs 09/16/2023 HISTORY: Foot pain TECHNIQUE: AP, lateral and oblique views of the foot obtained. FINDINGS: Osseous erosions of the distal phalanx of the great toe are again identified. There is now a mildly displaced fracture of the distal aspect of the proximal phalanx of the great toe. Chronic appearing deformity of the base of the fifth metatarsal. Mild degenerative changes of the midfoot. Decreased bone mineralization. Atherosclerotic vascular calcifications. Ordering Provider: Zackary Steve FINAL REPORT Dictated: 09/29/2023 2:50 pm Yamileth Astorga DO Signed (Electronic Signature): 09/29/2023 2:50 pm Signed by: Yamileth Astorga DO Transcribed by: YENIFER Technologist: CC Technical Comments Radiation Dose: Ka,r in mGy = na DAP = na Normal [facility] eGFRon 09-29-2023 eGFR 16 mL/min/1.73 m2 Low >=59 [facility] Comment on above: Order Comment: Order added by Discern Expert. Performed By: #### 1 [id number] #### [facility] [address] [place] [address] Activated partial thrombopla stin time (aPTT) in platelet poor plasma by coagulation aOrdered By: Taco Freed on 09-22-2023 aPTT Coag (PPP) [Time] 33.0 s 25.1-36.5 [facility] Comment on above: A hematocrit value g reater than 55% may lead to inaccurate results in coagulation testing. Patients having hematocrit values >55% require a special collection tube for coagulation studies. Please contact the laboratory at [phone] for redraw instructions. Alanine aminotransferase [En zymatic activity/volume] in Serum or PlasmaOrdered By: Taco Freed on 09-22-2023 ALT [Catalytic activity/Vol] 14 U/L 7-52 [facility] Comment on above: Performed By: #### H EPATIC, BMP, PT, PTT, CK, CBC, HS TROP, BNP ####[facility] [address] [place] [address] [facility] Albumin [Mass/volume] in Ser um or Plasma by Bromocresol green (BCG) dye binding methoOrdered By: Taco Freed on 09-22-2023 Albumin BCG dye [Mass/Vol] 3.8 g/dL 3.5-5.7 [facility] Alkaline phosphatase [Enzyma tic activity/volume] in Serum or PlasmaOrdered By: Taco Freed on 09-22-2023 ALP [Catalytic activity/Vol] 141 U/L High 34-104 [facility] Comment on above: Performed By: #### H EPATIC, BMP, PT, PTT, CK, CBC, HS TROP, BNP ####[facility] [address] [place] [address] [facility] Aspartate aminotransferase [ Enzymatic activity/volume] in Serum or PlasmaOrdered By: Taco Freed on 09-22-2023 AST [Catalytic activity/Vol] 19 U/L 13-39 [facility] Comment on above: Performed By: #### H EPATIC, BMP, PT, PTT, CK, CBC, HS TROP, BNP ####[address] Automated basophil %Ordered By: Taco Freed on 09-22-2023 Basophils/100 WBC (Bld) 0.9 % . [facility] Comment on above: Performed By: #### H EPATIC, BMP, PT, PTT, CK, CBC, HS TROP, BNP ####[address] Automated basophil countOrde red By: Taco Freed on 09-22-2023 Basophils (Bld) [#/Vol] 0.1 10*3/uL 0.0-0.2 [facility] Comment on above: Result Comment: PERF ORMED BY:[address] [place], [place] [phone] MEDICAL DIRECTORRAMEZ LARSON M.D. Performed By: #### H EPATIC, BMP, PT, PTT, CK, CBC, HS TROP, BNP ####[address] Automated blood monocyte cou ntOrdered By: Taco Freed on 09-22-2023 Monocytes (Bld) [#/Vol] 1.2 10*3/uL High 0.0-0.8 [facility] Comment on above: Performed By: #### H EPATIC, BMP, PT, PTT, CK, CBC, HS TROP, BNP ####[address] Automated eosinophil %Ordere d By: Taco Freed on 09-22-2023 Eosinophils/100 WBC (Bld) 2.5 % . [facility] Comment on above: Performed By: #### H EPATIC, BMP, PT, PTT, CK, CBC, HS TROP, BNP ####[address] Automated eosinophil countOr dered By: Taco Freed on 09-22-2023 Eosinophils (Bld) [#/Vol] 0.3 10*3/uL 0.0-0.45 [facility] Comment on above: Performed By: #### H EPATIC, BMP, PT, PTT, CK, CBC, HS TROP, BNP ####[address] Automated monocyte %Ordered By: Taco Freed on 09-22-2023 Monocytes/100 WBC (Bld) 11.8 % . F [facility] Comment on above: Performed By: #### H EPATIC, BMP, PT, PTT, CK, CBC, HS TROP, BNP ####[address] Automated neutrophil %Ordere d By: Taco Freed on 09-22-2023 Neutrophils/100 WBC (Bld) 69.3 % . [facility] Comment on above: Performed By: #### H EPATIC, BMP, PT, PTT, CK, CBC, HS TROP, BNP ####[address] BNP ser/plasOrdered By: Mk Freed on 09-22-2023 Natriuretic peptide B (Bld) [Mass/Vol] 1647.0 pg/mL High 5-100 [facility] Comment on above: Result Comment: PERF ORMED BY:[place] [address] [place], [place] [phone] MEDICAL MAJOR LARSON M.D. Performed By: #### H EPATIC, BMP, PT, PTT, CK, CBC, HS TROP, BNP ####[place] [id number] [facility] Basic Metabolic Panelon 09-10 Creatinine Clr Calc Pharmacy 7.37 Normal [facility] Comment on above: Result Comment: PERF ORMED BY:[place] [address] [place], [place] [phone] MEDICAL MAJOR LARSON M.D. Performed By: #### H EPATIC, BMP, PT, PTT, CK, CBC, HS TROP, BNP ####[address] GFR/1.73 sq M.predicted MDRD (S/P/Bld) [Vol rate/Area] 6.707 mL/min/{1.73_m2} Normal [facility] Comment on above: Performed By: #### H EPATIC, BMP, PT, PTT, CK, CBC, HS TROP, BNP ####[place] [address] Bilirubin.direct [Mass/volum e] in Serum or PlasmaOrdered By: Taco Freed on 09-22-2023 Bilirubin.direct [Mass/Vol] 0.10 mg/dL 0.03-0.18 [facility] Bilirubin.total [Mass/volume ] in Serum or PlasmaOrdered By: Taco Freed on 09-22-2023 Bilirubin [Mass/Vol] 0.4 mg/dL 0.3-1.0 [facility] Comment on above: Performed By: #### H EPATIC, BMP, PT, PTT, CK, CBC, HS TROP, BNP ####[address] COVID CepheidOrdered By: Edison Freed on 09-22-2023 SARS-CoV-2 (COVID-19) Ab IA Ql Negative Negative [facility] Comment on above: This is a duplicate Cepheid Xpert Xpress CoV-2/Flu/RSV Plus RNA by RT-PCR result to be used for statistical tracking purpose only. SARS-CoV-2 (COVID-19) RNA MADISON+probe Ql (Unsp spec) Negative Normal Negative [facility] Comment on above: Result Comment: This is a duplicate Cepheid Xpert Xpress CoV-2/Flu/RSV Plus RNA by RT-PCR result to be used for statistical tracking purpose only.PERFORMED BY:[address] [place], [place] [phone] MEDICAL DIRECTORRAMEZ LARSON M.D. Performed By: #### C EPHEID NEG, COVID19 FLU RSV ####[address] SARS-CoV-2 (COVID-19) RNA MADISON+probe Ql (Unsp spec) [facility] Comment on above: Performed By: #### C EPHEID NEG, COVID19 FLU RSV ####[place] [id number] [facility] Calcium [Mass/volume] in Ser um or PlasmaOrdered By: Taco Freed on 09-22-2023 Calcium [Mass/Vol] 9.9 mg/dL 8.6-10.3 [facility] Comment on above: Performed By: #### H EPATIC, BMP, PT, PTT, CK, CBC, HS TROP, BNP ####[address] Carbon dioxide, total [Moles /volume] in Serum or PlasmaOrdered By: Taco Freed on 09-22-2023 CO2 [Moles/Vol] 23.8 mmol/L 21.0-31.0 [facility] Comment on above: Performed By: #### H EPATIC, BMP, PT, PTT, CK, CBC, HS TROP, BNP ####[address] Chloride [Moles/volume] in S steffanie or PlasmaOrdered By: Taco Freed on 09-22-2023 Chloride [Moles/Vol] 88 mmol/L Low 98-107 [facility] Comment on above: Performed By: #### H EPATIC, BMP, PT, PTT, CK, CBC, HS TROP, BNP ####[address] Complete Blood Count Auto Di ffon 09-22-2023 Mean Corpuscular HGB Conc 32.6 g/dL Normal 32.0-35.0 [facility] Comment on above: Performed By: #### H EPATIC, BMP, PT, PTT, CK, CBC, HS TROP, BNP ####[address] Monocytes/100 WBC (Bld) 20.02 % High 0.00-20.00 [facility] Comment on above: Result Comment: For adults in ED, MDW > 20.0 may be associated with a higher risk of sepsis during the first 12 hrs of hospital admission Performed By: #### H EPATIC, BMP, PT, PTT, CK, CBC, HS TROP, BNP ####[address] NRBC% 0.1 /100{WBC} Normal 0-0.5 [facility] Comment on above: Performed By: #### H EPATIC, BMP, PT, PTT, CK, CBC, HS TROP, BNP ####[address] Creatine kinase [Enzymatic a ctivity/volume] in Serum or PlasmaOrdered By: Taco Freed on 09-22-2023 CK [Catalytic activity/Vol] 44 U/L 30-223 [facility] Comment on above: Performed By: #### H EPATIC, BMP, PT, PTT, CK, CBC, HS TROP, BNP ####[address] Creatinine [Mass/volume] in Serum or PlasmaOrdered By: Taco Freed on 09-22-2023 Creatinine [Mass/Vol] 6.07 mg/dL High 0.60-1.20 [facility] Comment on above: Performed By: #### H EPATIC, BMP, PT, PTT, CK, CBC, HS TROP, BNP ####[address] ECG 12 lead ECGon 09-22-2023 ECG 12 lead ECG Normal [facility] Erythrocyte distribution wid th [Ratio] by Automated countOrdered By: Taco Freed on 09-22-2023 Erythrocyte distribution width (RBC) [Ratio] 16.2 % High 11.9-15.3 [facility] Comment on above: Performed By: #### H EPATIC, BMP, PT, PTT, CK, CBC, HS TROP, BNP ####[address] Erythrocytes [#/volume] in B lood by Automated countOrdered By: Taco Freed on 09-22-2023 RBC (Bld) [#/Vol] 3.75 10*6/uL 3.60-5.00 [facility] Comment on above: Performed By: #### H EPATIC, BMP, PT, PTT, CK, CBC, HS TROP, BNP ####[place] [id number] Glucose [Mass/volume] in Ser um or PlasmaOrdered By: Taco Freed on 09-22-2023 Glucose [Mass/Vol] 137 mg/dL High 70-100 [facility] Comment on above: Result Comment: [place] om Glucose Reference Range is dependent on time and content of last meal. Glucose of more than 200 mg/dL in a nonstressed, ambulatory subject supports the diagnosis of Diabetes Mellitus. ADA recommended reference range Performed By: #### H EPATIC, BMP, PT, PTT, CK, CBC, HS TROP, BNP ####[address] ADA recommended refe rence rangeRandom Glucose Reference Range is dependent on time and content of last meal. Glucose of more than 200 mg/dL in a nonstressed, ambulatory subject supports the diagnosis of Diabetes Mellitus. Hematocrit [Volume Fraction] of Blood by Automated countOrdered By: Taco Freed on 09-22-2023 Hematocrit (Bld) [Volume fraction] 34.1 % 34.0-46.4 [facility] Comment on above: Performed By: #### H EPATIC, BMP, PT, PTT, CK, CBC, HS TROP, BNP ####[address] Hemoglobin [Mass/volume] in BloodOrdered By: Taco Freed on 09-22-2023 Hemoglobin (Bld) [Mass/Vol] 11.1 g/dL Low 11.8-15.4 [facility] Comment on above: Performed By: #### H EPATIC, BMP, PT, PTT, CK, CBC, HS TROP, BNP ####[place] [id number] [facility] Hepatic Panelon 09-22-2023 Albumin [Mass/Vol] 3.8 g/dL Normal 3.5-5.7 [facility] Comment on above: Performed By: #### H EPATIC, BMP, PT, PTT, CK, CBC, HS TROP, BNP ####[facility] Bilirubin,Indirect 0.3 mg/dL Normal [facility] Comment on above: Performed By: #### H EPATIC, BMP, PT, PTT, CK, CBC, HS TROP, BNP ####[place] [id number] Bilirubin.indirect [Mass/Vol] 0.10 mg/dL Normal 0.03-0.18 [facility] Comment on above: Performed By: #### H EPATIC, BMP, PT, PTT, CK, CBC, HS TROP, BNP ####[address] INR in Platelet poor plasma by Coagulation assayOrdered By: Taco Freed on 09-22-2023 INR Coag (PPP) [Relative time] 1.0 {INR} [facility] Comment on above: Result [...] 3 - 4.5 Performed By: #### H EPATIC, BMP, PT, PTT, CK, CBC, HS TROP, BNP ####[address] INR Therapeutic Rang e A) Pre- and [...] by Automated counOrdered By: Taco Freed on 09-22-2023 WBC corrected for nucl RBC Auto (Bld) [#/Vol] 10.0 10*3/uL 3.8-11.6 [facility] Leukocytes [#/volume] in Blo od by Automated countOrdered By: Taco Freed on 09-22-2023 WBC (Bld) [#/Vol] 10.0 10*3/uL 3.8-11.6 [facility] Comment on above: Performed By: #### H EPATIC, BMP, PT, PTT, CK, CBC, HS TROP, BNP ####[address] Lymphocytes [#/volume] in Bl ood by Automated countOrdered By: Taco Freed on 09-22-2023 Lymphocytes (Bld) [#/Vol] 1.5 10*3/uL 1.00-4.8 [facility] Comment on above: Performed By: #### H EPATIC, BMP, PT, PTT, CK, CBC, HS TROP, BNP ####[address] Lymphocytes/100 leukocytes i n Blood by Automated countOrdered By: Taco Freed on 09-22-2023 Lymphocytes/100 WBC (Bld) 15.5 % . [facility] Comment on above: Performed By: #### H EPATIC, BMP, PT, PTT, CK, CBC, HS TROP, BNP ####[place] [id number] [facility] MCH [Entitic mass] by Automa tr countOrdered By: Taco Freed on 09-22-2023 MCH (RBC) [Entitic mass] 29.7 pg 24.7-34.3 [facility] Comment on above: Performed By: #### H EPATIC, BMP, PT, PTT, CK, CBC, HS TROP, BNP ####[place] [id number] [facility] MCHC Auto (RBC) [Mass/Vol]Or dered By: Taco Freed on 09-22-2023 MCHC (RBC) [Mass/Vol] 32.6 g/dL 32.0-35.0 [facility] MCV [Entitic volume] by Auto mated countOrdered By: Taco Freed on 09-22-2023 MCV (RBC) [Entitic vol] 91.0 fL 80-[address] [facility] Comment on above: Performed By: #### H EPATIC, BMP, PT, PTT, CK, CBC, HS TROP, BNP ####[facility] [id number] Monocyte distribution width [Entitic volume] in Blood by AutomatedOrdered By: Taco Freed on 09-22-2023 Monocyte distribution width Auto (Bld) [Entitic vol] 20.02 % High 0.00-20.00 [facility] Comment on above: For adults in ED, MD W > 20.0 may be associated with a higher risk of sepsis during the first 12 hrs of hospital admission Neutrophils [#/volume] in Bl ood by Automated countOrdered By: Taco Freed on 09-22-2023 Neutrophils (Bld) [#/Vol] 6.9 10*3/uL 1.8-7.7 [facility] Comment on above: Performed By: #### H EPATIC, BMP, PT, PTT, CK, CBC, HS TROP, BNP ####[place] [id number] No Panel InformationOrdered By: Taco Freed on 09-22-2023 Estimated GFR (CKD-EPI) 6.707 mL/Min [facility] Creatinine Clearance (Chem 7.37 [facility] 6.707 mL/Min [facility] 7.37 [facility] Nucleated erythrocytes [Pres ence] in Blood by Automated countOrdered By: Taco Freed on 09-22-2023 Nucleated RBC Auto Ql (Bld) 0.1 /100{WBC} 0-0.5 [facility] Partial Thromboplastin Timeo n 09-22-2023 aPTT Coag (Bld) [Time] 33.0 s Normal 25.1-36.5 [facility] Comment on above: Result Comment: A he matocrit value greater than 55% may lead to inaccurate results in coagulation testing. Patients having hematocrit values >55% require a special collection tube for coagulation studies. Please contact the laboratory at [phone] for redraw instructions.PERFORMED BY:[address] [place], [place] [phone] MEDICAL DIRECTORRAMEZ LARSON M.D. Performed By: #### H EPATIC, BMP, PT, PTT, CK, CBC, HS TROP, BNP ####[address] [address] [facility] Platelet mean volume [Entiti c volume] in Blood by Automated countOrdered By: Taco Freed on 09-22-2023 Platelet mean volume (Bld) [Entitic vol] 8.7 fL 6.3-10.7 [facility] Comment on above: Performed By: #### H EPATIC, BMP, PT, PTT, CK, CBC, HS TROP, BNP ####[place] [id number] [facility] Platelets [#/volume] in Bloo d by Automated countOrdered By: Taco Freed on 09-22-2023 Platelets (Bld) [#/Vol] 256 10*3/uL 150-450 [facility] Comment on above: Performed By: #### H EPATIC, BMP, PT, PTT, CK, CBC, HS TROP, BNP ####[place] [id number] [facility] Potassium [Moles/volume] in Serum or PlasmaOrdered By: Taco Freed on 09-22-2023 Potassium [Moles/Vol] 6.0 mmol/L High 3.5-5.1 [facility] Comment on above: Performed By: #### H EPATIC, BMP, PT, PTT, CK, CBC, HS TROP, BNP ####[place] [id number] [facility] Protein [Mass/volume] in Ser um or PlasmaOrdered By: Taco Freed on 09-22-2023 Protein [Mass/Vol] 7.4 g/dL 6.4-8.9 [facility] Comment on above: Performed By: #### H EPATIC, BMP, PT, PTT, CK, CBC, HS TROP, BNP ####[address] Prothrombin time (PT)Ordered By: Taco Freed on 09-22-2023 PT Coag (PPP) [Time] 11.6 s 9.0-12.9 [facility] Comment on above: Result Comment: A he matocrit value greater than 55% may lead to inaccurate results in coagulation testing. Patients having hematocrit values >55% require a special collection tube for coagulation studies. Please contact the laboratory at [phone] for redraw instructions. Performed By: #### H EPATIC, BMP, PT, PTT, CK, CBC, HS TROP, BNP ####[address] A hematocrit value g reater than 55% may lead to inaccurate results in coagulation testing. Patients having hematocrit values >55% require a special collection tube for coagulation studies. Please contact the laboratory at [phone] for redraw instructions. Serum globulin measurement b y calculation (mass/volume)Ordered By: Taco Freed on 09-22-2023 Globulin (S) [Mass/Vol] 3.6 g/dL [facility] Comment on above: Performed By: #### H EPATIC, BMP, PT, PTT, CK, CBC, HS TROP, BNP ####[address] Serum or plasma albumin/glob ulin mass ratioOrdered By: Taco Freed on 09-22-2023 Albumin/Globulin [Mass ratio] 1.1 {ratio} [facility] Comment on above: Performed By: #### H EPATIC, BMP, PT, PTT, CK, CBC, HS TROP, BNP ####[address] Serum or plasma anion gap de terminationOrdered By: Taco Freed on 09-22-2023 Anion gap [Moles/Vol] 23.2 mmol/L High 6.0-15.0 [facility] Comment on above: Performed By: #### H EPATIC, BMP, PT, PTT, CK, CBC, HS TROP, BNP ####[place] [id number] [facility] Serum or plasma non-glucuron idated bilirubin measurement (mass/volume)Ordered By: Taco Freed on 09-22-2023 Bilirubin.indirect [Mass/Vol] 0.3 mg/dL [facility] Sodium [Moles/volume] in Ser um or PlasmaOrdered By: Taco Freed on 09-22-2023 Sodium [Moles/Vol] 129 mmol/L Low 136-145 [facility] Comment on above: Performed By: #### H EPATIC, BMP, PT, PTT, CK, CBC, HS TROP, BNP ####[place] [id number] [facility] Troponin I High Sensitivityo n 09-22-2023 Troponin I High Sensitivity 21.2 pg/mL High 0.0-15.0 [facility] Comment on above: Result Comment: PERF ORMED BY:[address] [place], [place] [phone] MEDICAL DIRECTORRAMEZ LARSON M.D. Performed By: #### H EPATIC, BMP, PT, PTT, CK, CBC, HS TROP, BNP ####[place] [id number] [facility] Troponin I.cardiac [Mass/vol ume] in Serum or Plasma by Detection limit <= 0.01 ng/Ordered By: Taco Freed on 09-22-2023 Troponin I.cardiac DL <= 0.01 ng/mL [Mass/Vol] 21.2 pg/mL High 0.0-15.0 [facility] Urea nitrogen [Mass/volume] in Serum or PlasmaOrdered By: Taco Freed on 09-22-2023 Urea nitrogen [Mass/Vol] 55 mg/dL High 7-25 [facility] Comment on above: Performed By: #### H EPATIC, BMP, PT, PTT, CK, CBC, HS TROP, BNP ####[address] [place] [address] [facility] XR chest 1V portableon 09-21 XR chest 1V portable Normal [facility] XR cervical spine 2Von 09-19 XR cervical spine 2V Normal [facility] XR Foot 3+ Views Righton XR Foot 3+ Views Right Exam Date/Time: 09/16/2023 14:57 EDT Reason for Exam: E11.621 Report IMPRESSION: POSSIBLE OSSEOUS EROSIONS OF THE DISTAL PHALANX OF THE GREAT TOE CONCERNING FOR POSSIBLE OSTEOMYELITIS. EXAM: XR Foot 3+ Views Right COMPARISON: None available HISTORY: Foot pain TECHNIQUE: AP, lateral and oblique views of the foot obtained. FINDINGS: No acute fracture identified of the great toe although evaluation of the distal phalanx is limited secondary to flexion deformity at the interphalangeal joint. There appear to be erosions of the distal phalanx of the great toe. No significant soft tissue edema of the great toe. Chronic appearing deformity of the base of the fifth metatarsal. Mild degenerative changes of the midfoot. Decreased bone mineralization. Atherosclerotic vascular calcifications. Ordering Provider: Julius Loyd FINAL REPORT Dictated: 09/18/2023 4:45 pm Yamileth Astorga DO Signed (Electronic Signature): 09/18/2023 4:45 pm Signed by: Yamileth Astorga DO Transcribed by: YENIFER Technologist: MARGI Technical Comments Radiation Dose: Ka,r in mGy = . DAP = . Normal [facility] XR cervical spine 2Von 08-27 XR cervical spine 2V Normal [facility] 37on 08-05-2023 37 *She has periodic lo w blood pressures. At this time, will continue midodrine scheduled 10mg TID. Will add an additional dose of midodrine 5mg PRN for SBP <90. Normal [facility] Office Visiton 08-05-2023 Follow-up visit [id number] Wilbert Wilson 1945 F Date Provider Department Center 08/05/2023 [facility] No family history on file Level of Service:52033 [place] OFFICE/OUTPATIENT ESTABLISHED MOD MDM 30 MIN Normal [facility] Activated partial thrombopla stin time (aPTT) in platelet poor plasma by coagulation aOrdered By: Constantine Perdomo on 08-01-2023 aPTT Coag (PPP) [Time] 33.4 s 25.1-36.5 [facility] Comment on above: A hematocrit value g reater than 55% may lead to inaccurate results in coagulation testing. Patients having hematocrit values >55% require a special collection tube for coagulation studies. Please contact the laboratory at [phone] for redraw instructions. Alanine aminotransferase [En zymatic activity/volume] in Serum or PlasmaOrdered By: Constantine Perdomo on 08-01-2023 ALT [Catalytic activity/Vol] 28 U/L 7-52 [facility] Comment on above: Performed By: #### C MP, PT, BNP, CK, HS TROP, CBC, PTT ####[place] [id number] Albumin [Mass/volume] in Ser um or Plasma by Bromocresol green (BCG) dye binding methoOrdered By: Constantine Perdomo on 08-01-2023 Albumin BCG dye [Mass/Vol] 4.4 g/dL 3.5-5.7 [facility] Alkaline phosphatase [Enzyma tic activity/volume] in Serum or PlasmaOrdered By: Constantine Perdomo on 08-01-2023 ALP [Catalytic activity/Vol] 287 U/L High 34-104 [facility] Comment on above: Performed By: #### C MP, PT, BNP, CK, HS TROP, CBC, PTT ####[place] [id number] [facility] Aspartate aminotransferase [ Enzymatic activity/volume] in Serum or PlasmaOrdered By: Constantine Perdomo on 08-01-2023 AST [Catalytic activity/Vol] 29 U/L 13-39 [facility] Comment on above: Performed By: #### C MP, PT, BNP, CK, HS TROP, CBC, PTT ####[place] [id number] [facility] Automated basophil %Ordered By: Constantine Perdomo on 08-01-2023 Basophils/100 WBC (Bld) 0.8 % . F [facility] Comment on above: Performed By: #### C MP, PT, BNP, CK, HS TROP, CBC, PTT ####[address] Automated basophil countOrde red By: Constantine Perdomo on 08-01-2023 Basophils (Bld) [#/Vol] 0.1 10*3/uL 0.0-0.2 [facility] Comment on above: Result Comment: PERF ORMED BY:[address] [place], [place] [phone] MEDICAL DIRECTORRAMEZ LARSON M.D. Performed By: #### C MP, PT, BNP, CK, HS TROP, CBC, PTT ####[address] Automated blood monocyte cou ntOrdered By: Constantine Perdomo on 08-01-2023 Monocytes (Bld) [#/Vol] 0.9 10*3/uL High 0.0-0.8 [facility] Comment on above: Performed By: #### C MP, PT, BNP, CK, HS TROP, CBC, PTT ####[address] Automated eosinophil %Ordere d By: Constantine Perdomo on 08-01-2023 Eosinophils/100 WBC (Bld) 2.6 % . [facility] Comment on above: Performed By: #### C MP, PT, BNP, CK, HS TROP, CBC, PTT ####[address] Automated eosinophil countOr dered By: Constantine Perdomo on 08-01-2023 Eosinophils (Bld) [#/Vol] 0.2 10*3/uL 0.0-0.45 [facility] Comment on above: Performed By: #### C MP, PT, BNP, CK, HS TROP, CBC, PTT ####[address] Automated monocyte %Ordered By: Constantine Perdomo on 08-01-2023 Monocytes/100 WBC (Bld) 11.3 % . [facility] Comment on above: Performed By: #### C MP, PT, BNP, CK, HS TROP, CBC, PTT ####[place] [id number] [facility] Automated neutrophil %Ordere d By: Constantine Perdomo on 08-01-2023 Neutrophils/100 WBC (Bld) 68.5 % . [facility] Comment on above: Performed By: #### C MP, PT, BNP, CK, HS TROP, CBC, PTT ####[place] [id number] [facility] BNP ser/plasOrdered By: Uvaldo Perdomo on 08-01-2023 Natriuretic peptide B (Bld) [Mass/Vol] 755.0 pg/mL High 5-100 [facility] Comment on above: Result Comment: PERF ORMED BY:[address] [place], [place] [phone] MEDICAL DIRECTORRAMEZ LARSON M.D. Performed By: #### C MP, PT, BNP, CK, HS TROP, CBC, PTT ####[address] Bilirubin.total [Mass/volume ] in Serum or PlasmaOrdered By: Constantine Perdomo on 08-01-2023 Bilirubin [Mass/Vol] 0.4 mg/dL 0.3-1.0 [facility] Comment on above: Performed By: #### C MP, PT, BNP, CK, HS TROP, CBC, PTT ####[address] Calcium [Mass/volume] in Ser um or PlasmaOrdered By: Constantine Perdomo on 08-01-2023 Calcium [Mass/Vol] 10.4 mg/dL High 8.6-10.3 [facility] Comment on above: Performed By: #### C MP, PT, BNP, CK, HS TROP, CBC, PTT ####[place] [id number] [facility] Carbon dioxide, total [Moles /volume] in Serum or PlasmaOrdered By: Constantine Perdomo on 08-01-2023 CO2 [Moles/Vol] 32.2 mmol/L High 21.0-31.0 [facility] Comment on above: Performed By: #### C MP, PT, BNP, CK, HS TROP, CBC, PTT ####[address] Chloride [Moles/volume] in S steffanie or PlasmaOrdered By: Constantine Perdomo on 08-01-2023 Chloride [Moles/Vol] 90 mmol/L Low 98-107 [facility] Comment on above: Performed By: #### C MP, PT, BNP, CK, HS TROP, CBC, PTT ####[address] Complete Blood Count Auto Di ffon 08-01-2023 Mean Corpuscular HGB Conc 32.7 g/dL Normal 32.0-35.0 [facility] Comment on above: Performed By: #### C MP, PT, BNP, CK, HS TROP, CBC, PTT ####[address] Monocytes/100 WBC (Bld) 22.23 % High 0.00-20.00 [facility] Comment on above: Result Comment: For adults in ED, MDW > 20.0 may be associated with a higher risk of sepsis during the first 12 hrs of hospital admission Performed By: #### C MP, PT, BNP, CK, HS TROP, CBC, PTT ####[address] NRBC% 0.0 /100{WBC} Normal 0-0.5 [facility] Comment on above: Performed By: #### C MP, PT, BNP, CK, HS TROP, CBC, PTT ####[address] Comprehensive Metabolic Pane eliseo 08-01-2023 Albumin [Mass/Vol] 4.4 g/dL Normal 3.5-5.7 [facility] Comment on above: Performed By: #### C MP, PT, BNP, CK, HS TROP, CBC, PTT ####[place] [id number] [facility] Creatinine Clr Calc Pharmacy 15.90 Normal [facility] Comment on above: Result Comment: PERF ORMED BY:[address] [place], [place] [phone] MEDICAL MAJOR LARSON M.D. Performed By: #### C MP, PT, BNP, CK, HS TROP, CBC, PTT ####[place] [id number] [facility] GFR/1.73 sq M.predicted MDRD (S/P/Bld) [Vol rate/Area] 18.550 mL/min/{1.73_m2} Normal [facility] Comment on above: Performed By: #### C MP, PT, BNP, CK, HS TROP, CBC, PTT ####[address] Creatine kinase [Enzymatic a ctivity/volume] in Serum or PlasmaOrdered By: Constantine Perdomo on 08-01-2023 CK [Catalytic activity/Vol] 26 U/L Low 30-223 [facility] Comment on above: Performed By: #### C MP, PT, BNP, CK, HS TROP, CBC, PTT ####[address] Creatinine [Mass/volume] in Serum or PlasmaOrdered By: Constantine Perdomo on 08-01-2023 Creatinine [Mass/Vol] 2.60 mg/dL High 0.60-1.20 [facility] Comment on above: Performed By: #### C MP, PT, BNP, CK, HS TROP, CBC, PTT ####[place] [id number] [facility] ECG 12 lead ECGon 08-01-2023 ECG 12 lead ECG Normal [facility] Erythrocyte distribution wid th [Ratio] by Automated countOrdered By: Constantine Perdomo on 08-01-2023 Erythrocyte distribution width (RBC) [Ratio] 18.9 % High 11.9-15.3 [facility] Comment on above: Performed By: #### C MP, PT, BNP, CK, HS TROP, CBC, PTT ####[place] [place] [address] [facility] Erythrocytes [#/volume] in B lood by Automated countOrdered By: Constantine Perdomo on 08-01-2023 RBC (Bld) [#/Vol] 3.63 10*6/uL 3.60-5.00 [facility] Comment on above: Performed By: #### C MP, PT, BNP, CK, HS TROP, CBC, PTT ####[place] [id number] [facility] Glucose [Mass/volume] in Ser um or PlasmaOrdered By: Constantine Perdomo on 08-01-2023 Glucose [Mass/Vol] 222 mg/dL High 70-100 [facility] Comment on above: Result Comment: [place] om Glucose Reference Range is dependent on time and content of last meal. Glucose of more than 200 mg/dL in a nonstressed, ambulatory subject supports the diagnosis of Diabetes Mellitus. ADA recommended reference range Performed By: #### C MP, PT, BNP, CK, HS TROP, CBC, PTT ####[place] [id number] [facility] ADA recommended refe rence rangeRandom Glucose Reference Range is dependent on time and content of last meal. Glucose of more than 200 mg/dL in a nonstressed, ambulatory subject supports the diagnosis of Diabetes Mellitus. Hematocrit [Volume Fraction] of Blood by Automated countOrdered By: Constantine Perdomo on 08-01-2023 Hematocrit (Bld) [Volume fraction] 33.8 % Low 34.0-46.4 [facility] Comment on above: Performed By: #### C MP, PT, BNP, CK, HS TROP, CBC, PTT ####[place] [id number] [facility] Hemoglobin [Mass/volume] in BloodOrdered By: Constantine Perdomo on 08-01-2023 Hemoglobin (Bld) [Mass/Vol] 11.1 g/dL Low 11.8-15.4 [facility] Comment on above: Performed By: #### C MP, PT, BNP, CK, HS TROP, CBC, PTT ####[facility] INR in Platelet poor plasma by Coagulation assayOrdered By: Constantine Perdomo on 08-01-2023 INR Coag (PPP) [Relative time] 1.1 {INR} [facility] Comment on above: Result [...] - 4.5 Performed By: #### C MP, PT, BNP, CK, HS TROP, CBC, PTT ####[facility] INR Therapeutic Rang e A) Pre- and [...] by Automated counOrdered By: Constantine Perdomo on 08-01-2023 WBC corrected for nucl RBC Auto (Bld) [#/Vol] 8.2 10*3/uL 3.8-11.6 [facility] Leukocytes [#/volume] in Blo od by Automated countOrdered By: Constantine Perdomo on 08-01-2023 WBC (Bld) [#/Vol] 8.2 10*3/uL 3.8-11.6 [facility] Comment on above: Performed By: #### C MP, PT, BNP, CK, HS TROP, CBC, PTT ####[facility] [place] [id number] [facility] Lymphocytes [#/volume] in Bl ood by Automated countOrdered By: Constantine Perdomo on 08-01-2023 Lymphocytes (Bld) [#/Vol] 1.4 10*3/uL 1.00-4.8 [facility] Comment on above: Performed By: #### C MP, PT, BNP, CK, HS TROP, CBC, PTT ####[place] [address] Lymphocytes/100 leukocytes i n Blood by Automated countOrdered By: Constantine Perdomo on 08-01-2023 Lymphocytes/100 WBC (Bld) 16.8 % . [facility] Comment on above: Performed By: #### C MP, PT, BNP, CK, HS TROP, CBC, PTT ####[address] MCH [Entitic mass] by Automa tr countOrdered By: Constantine Perdomo on 08-01-2023 MCH (RBC) [Entitic mass] 30.5 pg 24.7-34.3 [facility] Comment on above: Performed By: #### C MP, PT, BNP, CK, HS TROP, CBC, PTT ####[address] MCHC Auto (RBC) [Mass/Vol]Or dered By: Constantine Perdomo on 08-01-2023 MCHC (RBC) [Mass/Vol] 32.7 g/dL 32.0-35.0 [facility] MCV [Entitic volume] by Auto mated countOrdered By: Constantine Perdomo on 08-01-2023 MCV (RBC) [Entitic vol] 93.3 fL 80-[address] [facility] Comment on above: Performed By: #### C MP, PT, BNP, CK, HS TROP, CBC, PTT ####[address] Monocyte distribution width [Entitic volume] in Blood by AutomatedOrdered By: Constantine Perdomo on 08-01-2023 Monocyte distribution width Auto (Bld) [Entitic vol] 22.23 % High 0.00-20.00 [facility] Comment on above: For adults in ED, MD W > 20.0 may be associated with a higher risk of sepsis during the first 12 hrs of hospital admission Neutrophils [#/volume] in Bl ood by Automated countOrdered By: Constantine Perdomo on 08-01-2023 Neutrophils (Bld) [#/Vol] 5.6 10*3/uL 1.8-7.7 [facility] Comment on above: Performed By: #### C MP, PT, BNP, CK, HS TROP, CBC, PTT ####[facility] No Panel InformationOrdered By: Constantine Perdomo on 08-01-2023 Estimated GFR (CKD-EPI) 18.550 mL/Min [facility] Creatinine Clearance (Chem 15.90 [facility] 18.550 mL/Min [facility] 15.90 [facility] Nucleated erythrocytes [Pres ence] in Blood by Automated countOrdered By: Constantine Perdomo on 08-01-2023 Nucleated RBC Auto Ql (Bld) 0.0 /100{WBC} 0-0.5 [facility] Partial Thromboplastin Timeo n 08-01-2023 aPTT Coag (Bld) [Time] 33.4 s Normal 25.1-36.5 [facility] Comment on above: Result Comment: A he matocrit value greater than 55% may lead to inaccurate results in coagulation testing. Patients having hematocrit values >55% require a special collection tube for coagulation studies. Please contact the laboratory at [phone] for redraw instructions.PERFORMED BY:[place] [address] [place], [place] [phone] MEDICAL DIRECTORRAMEZ LARSON M.D. Performed By: #### C MP, PT, BNP, CK, HS TROP, CBC, PTT ####[address] Platelet mean volume [Entiti c volume] in Blood by Automated countOrdered By: Constantine Perdomo on 08-01-2023 Platelet mean volume (Bld) [Entitic vol] 8.5 fL 6.3-10.7 [facility] Comment on above: Performed By: #### C MP, PT, BNP, CK, HS TROP, CBC, PTT ####[address] Platelets [#/volume] in Bloo d by Automated countOrdered By: Constantine Perdomo on 08-01-2023 Platelets (Bld) [#/Vol] 259 10*3/uL 150-450 [facility] Comment on above: Performed By: #### C MP, PT, BNP, CK, HS TROP, CBC, PTT ####[place] [id number] [facility] Potassium [Moles/volume] in Serum or PlasmaOrdered By: Constantine Perdomo on 08-01-2023 Potassium [Moles/Vol] 4.0 mmol/L 3.5-5.1 [facility] Comment on above: Performed By: #### C MP, PT, BNP, CK, HS TROP, CBC, PTT ####[address] Protein [Mass/volume] in Ser um or PlasmaOrdered By: Constantine Perdomo on 08-01-2023 Protein [Mass/Vol] 8.3 g/dL 6.4-8.9 [facility] Comment on above: Performed By: #### C MP, PT, BNP, CK, HS TROP, CBC, PTT ####[place] [id number] [facility] Prothrombin time (PT)Ordered By: Constantine Perdomo on 08-01-2023 PT Coag (PPP) [Time] 12.2 s 9.0-12.9 [facility] Comment on above: Result Comment: A he matocrit value greater than 55% may lead to inaccurate results in coagulation testing. Patients having hematocrit values >55% require a special collection tube for coagulation studies. Please contact the laboratory at [phone] for redraw instructions. Performed By: #### C MP, PT, BNP, CK, HS TROP, CBC, PTT ####[place] [id number] [facility] A hematocrit value g reater than 55% may lead to inaccurate results in coagulation testing. Patients having hematocrit values >55% require a special collection tube for coagulation studies. Please contact the laboratory at [phone] for redraw instructions. Serum globulin measurement b y calculation (mass/volume)Ordered By: Constantine Perdomo on 08-01-2023 Globulin (S) [Mass/Vol] 3.9 g/dL [facility] Comment on above: Performed By: #### C MP, PT, BNP, CK, HS TROP, CBC, PTT ####[address] Serum or plasma albumin/glob ulin mass ratioOrdered By: Constantine Perdomo on 08-01-2023 Albumin/Globulin [Mass ratio] 1.1 {ratio} [facility] Comment on above: Performed By: #### C MP, PT, BNP, CK, HS TROP, CBC, PTT ####[address] Serum or plasma anion gap de terminationOrdered By: Constantine Perdomo on 08-01-2023 Anion gap [Moles/Vol] 16.8 mmol/L High 6.0-15.0 [facility] Comment on above: Performed By: #### C MP, PT, BNP, CK, HS TROP, CBC, PTT ####[address] Sodium [Moles/volume] in Ser um or PlasmaOrdered By: Constantine Perdomo on 08-01-2023 Sodium [Moles/Vol] 135 mmol/L Low 136-145 [facility] Comment on above: Performed By: #### C MP, PT, BNP, CK, HS TROP, CBC, PTT ####[address] Troponin I High Sensitivityo n 08-01-2023 Troponin I High Sensitivity 18.2 pg/mL High 0.0-15.0 [facility] Comment on above: Result Comment: PERF ORMED BY:[address] [place], [place] [phone] MEDICAL DIRECTORRAMEZ LARSON M.D. Performed By: #### C MP, PT, BNP, CK, HS TROP, CBC, PTT ####[address] Troponin I.cardiac [Mass/vol ume] in Serum or Plasma by Detection limit <= 0.01 ng/Ordered By: Constantine Perdomo on 08-01-2023 Troponin I.cardiac DL <= 0.01 ng/mL [Mass/Vol] 18.2 pg/mL High 0.0-15.0 [facility] Urea nitrogen [Mass/volume] in Serum or PlasmaOrdered By: Constantine Perdomo on 08-01-2023 Urea nitrogen [Mass/Vol] 18 mg/dL 09-03 [facility] Comment on above: Performed By: #### C MP, PT, BNP, CK, HS TROP, CBC, PTT ####[facility] [address] [place] [address] [facility] XR chest 1V portableon 07-31 XR chest 1V portable Normal [facility] Capillary blood glucose eugenie urement by glucometer (mass/volume)Ordered By: Quintin Johnson on 07-22-2023 Glucose [Mass/Vol] 191 mg/dL [facility] Comment on above: Result Comment: [place] Glucose Reference Range is dependent on time and content of last meal. Glucose of more than 200 mg/dL in a nonstressed, ambulatory subject supports the diagnosis of Diabetes Mellitus.PERFORMED BY:[address] [place], [place] [phone] MEDICAL DIRECTORRAMEZ LARSON M.D. Performed By: #### G DAVID ####Point of Care testing, Random Glucose Refer ence Range is dependent on time and content of last meal. Glucose of more than 200 mg/dL in a nonstressed, ambulatory subject supports the diagnosis of Diabetes Mellitus. Glucose Poct Glucometerson 0 07-22-2023 Glucose [Mass/Vol] 118 mg/dL Normal [facility] Comment on above: Result Comment: [place] Glucose Reference Range is dependent on time and content of last meal. Glucose of more than 200 mg/dL in a nonstressed, ambulatory subject supports the diagnosis of Diabetes Mellitus.PERFORMED BY:[place] [address] [place], [place] [phone] MEDICAL DIRECTORRAMEZ LARSON M.D. Performed By: #### G DAVID ####Point of Care testing, Albumin [Mass/volume] in Ser um or Plasma by Bromocresol green (BCG) dye binding methoOrdered By: Geronimo Graham on 07-21-2023 Albumin BCG dye [Mass/Vol] 3.2 g/dL Low 3.5-5.7 [facility] Automated basophil %Ordered By: Geronimo Graham on 07-21-2023 Basophils/100 WBC (Bld) 0.5 % . [facility] Comment on above: Performed By: #### R GISELE, CBC ####[address] Automated basophil countOrde red By: Geronimo Graham on 07-21-2023 Basophils (Bld) [#/Vol] 0.0 10*3/uL 0.0-0.2 [facility] Comment on above: Result Comment: PERF ORMED BY:[address] [place], [place] [phone] MEDICAL DIRECTORRAMEZ LARSON M.D. Performed By: #### Albaro JAQUEZ, CBC ####[address] Automated blood monocyte cou ntOrdered By: Geronimo Graham on 07-21-2023 Monocytes (Bld) [#/Vol] 0.6 10*3/uL 0.0-0.8 [facility] Comment on above: Performed By: #### Albaro JAQUEZ, CBC ####[address] Automated eosinophil %Ordere d By: Geronimo Graham on 07-21-2023 Eosinophils/100 WBC (Bld) 5.3 % . [facility] Comment on above: Performed By: #### R GISELE, CBC ####[address] Automated eosinophil countOr dered By: Geronimo Graham on 07-21-2023 Eosinophils (Bld) [#/Vol] 0.3 10*3/uL 0.0-0.45 [facility] Comment on above: Performed By: #### R ENROBI, CBC ####[place] [id number] [facility] Automated monocyte %Ordered By: Geronimo Graham on 07-21-2023 Monocytes/100 WBC (Bld) 11.5 % . [facility] Comment on above: Performed By: #### R ENAL, CBC ####[place] [id number] [facility] Automated neutrophil %Ordere d By: Geronimo Graham on 07-21-2023 Neutrophils/100 WBC (Bld) 66.3 % . [facility] Comment on above: Performed By: #### R GISELE, CBC ####[place] [id number] [facility] Calcium [Mass/volume] in Ser um or PlasmaOrdered By: Geronimo Graham on 07-21-2023 Calcium [Mass/Vol] 10.2 mg/dL 8.6-10.3 [facility] Comment on above: Performed By: #### R GISELE, CBC ####[place] [id number] [facility] Carbon dioxide, total [Moles /volume] in Serum or PlasmaOrdered By: Geronimo Graham on 07-21-2023 CO2 [Moles/Vol] 28.2 mmol/L 21.0-31.0 [facility] Comment on above: Performed By: #### R ENROBI, CBC ####[place] [id number] [place] Chloride [Moles/volume] in S steffanie or PlasmaOrdered By: Geronimo Graham on 07-21-2023 Chloride [Moles/Vol] 97 mmol/L Low 98-107 [facility] Comment on above: Performed By: #### R ENAL, CBC ####[place] [id number] [facility] Complete Blood Count Auto Di ffon 07-21-2023 Mean Corpuscular HGB Conc 32.5 g/dL Normal 32.0-35.0 [facility] Comment on above: Performed By: #### R ENAL, CBC ####[address] NRBC% 0.0 /100{WBC} Normal 0-0.5 [facility] Comment on above: Performed By: #### R ENAL, CBC ####[address] Creatinine [Mass/volume] in Serum or PlasmaOrdered By: Geronimo Graham on 07-21-2023 Creatinine [Mass/Vol] 4.62 mg/dL High 0.60-1.20 [facility] Comment on above: Performed By: #### R GISELE, CBC ####[address] Erythrocyte distribution wid th [Ratio] by Automated countOrdered By: Geronimo Graham on 07-21-2023 Erythrocyte distribution width (RBC) [Ratio] 17.2 % High 11.9-15.3 [facility] Comment on above: Performed By: #### R ENAL, CBC ####[address] Erythrocytes [#/volume] in B lood by Automated countOrdered By: Geronimo Graham on 07-21-2023 RBC (Bld) [#/Vol] 2.77 10*6/uL Low 3.60-5.00 [facility] Comment on above: Performed By: #### R ENAL, CBC ####[place] [id number] [facility] Glucose Poct Glucometerson 0 07-21-2023 Glucose [Mass/Vol] 287 mg/dL Normal [facility] Comment on above: Result Comment: [facility] Glucose Reference Range is dependent on time and content of last meal. Glucose of more than 200 mg/dL in a nonstressed, ambulatory subject supports the diagnosis of Diabetes Mellitus.PERFORMED BY:[address] [place], [place] [phone] MEDICAL DIRECTORRAMEZ LARSON M.D. Performed By: #### G LULS ####Point of Care testing, Glucose [Mass/Vol] 135 mg/dL Normal [facility] Comment on above: Result Comment: [place] Glucose Reference Range is dependent on time and content of last meal. Glucose of more than 200 mg/dL in a nonstressed, ambulatory subject supports the diagnosis of Diabetes Mellitus.PERFORMED BY:[address] [place], [place] [phone] MEDICAL MAJOR LARSON M.D. Performed By: #### G LULS ####Point of Care testing, Glucose [Mass/Vol] 248 mg/dL Normal [facility] Comment on above: Result Comment: [facility] Glucose Reference Range is dependent on time and content of last meal. Glucose of more than 200 mg/dL in a nonstressed, ambulatory subject supports the diagnosis of Diabetes Mellitus.PERFORMED BY:[address] [place], [place] [phone] MEDICAL MAJOR LARSON M.D. Performed By: #### G LULS ####Point of Care testing, Glucose [Mass/Vol] 154 mg/dL Normal [facility] Comment on above: Result Comment: [facility] Glucose Reference Range is dependent on time and content of last meal. Glucose of more than 200 mg/dL in a nonstressed, ambulatory subject supports the diagnosis of Diabetes Mellitus.PERFORMED BY:[address] [place], [place] [phone] MEDICAL MAJOR LARSON M.D. Performed By: #### G LULS ####Point of Care testing, Glucose [Mass/volume] in Ser um or PlasmaOrdered By: Geronimo Graham on 07-21-2023 Glucose [Mass/Vol] 153 mg/dL High 70-100 [facility] Comment on above: Result Comment: [facility] Glucose Reference Range is dependent on time and content of last meal. Glucose of more than 200 mg/dL in a nonstressed, ambulatory subject supports the diagnosis of Diabetes Mellitus. ADA recommended reference range Performed By: #### R ENAL, CBC ####[facility] [id number] ADA recommended refe rence rangeRandom Glucose Reference Range is dependent on time and content of last meal. Glucose of more than 200 mg/dL in a nonstressed, ambulatory subject supports the diagnosis of Diabetes Mellitus. Hematocrit [Volume Fraction] of Blood by Automated countOrdered By: Geronimo Graham on 07-21-2023 Hematocrit (Bld) [Volume fraction] 25.6 % Low 34.0-46.4 [facility] Comment on above: Performed By: #### R ENROBI, CBC ####[address] Hemoglobin [Mass/volume] in BloodOrdered By: Geronimo Graham on 07-21-2023 Hemoglobin (Bld) [Mass/Vol] 8.3 g/dL Low 11.8-15.4 [facility] Comment on above: Performed By: #### R IGSELE, CBC ####[place] [address] Leukocytes [#/volume] correc tr for nucleated erythrocytes in Blood by Automated counOrdered By: Geronimo Graham on 07-21-2023 WBC corrected for nucl RBC Auto (Bld) [#/Vol] 5.5 10*3/uL 3.8-11.6 [facility] Leukocytes [#/volume] in Blo od by Automated countOrdered By: Geronimo Graham on 07-21-2023 WBC (Bld) [#/Vol] 5.5 10*3/uL 3.8-11.6 [facility] Comment on above: Performed By: #### R ENROBI, CBC ####[address] Lymphocytes [#/volume] in Bl ood by Automated countOrdered By: Geronimo Graham on 07-21-2023 Lymphocytes (Bld) [#/Vol] 0.9 10*3/uL Low 1.00-4.8 [facility] Comment on above: Performed By: #### R ENROBI, CBC ####[place] [address] Lymphocytes/100 leukocytes i n Blood by Automated countOrdered By: Geronimo Graham on 07-21-2023 Lymphocytes/100 WBC (Bld) 16.4 % . [facility] Comment on above: Performed By: #### R ENAL, CBC ####[address] MCH [Entitic mass] by Automa tr countOrdered By: Geronimo Graham on 07-21-2023 MCH (RBC) [Entitic mass] 30.1 pg 24.7-34.3 [facility] Comment on above: Performed By: #### R GISELE, CBC ####[address] MCHC Auto (RBC) [Mass/Vol]Or dered By: Geronimo Graham on 07-21-2023 MCHC (RBC) [Mass/Vol] 32.5 g/dL 32.0-35.0 [facility] MCV [Entitic volume] by Auto mated countOrdered By: Geronimo Graham on 07-21-2023 MCV (RBC) [Entitic vol] 92.4 fL 80-[address] [facility] Comment on above: Performed By: #### R ENROBI, CBC ####[address] Neutrophils [#/volume] in Bl ood by Automated countOrdered By: Geronimo Graham on 07-21-2023 Neutrophils (Bld) [#/Vol] 3.7 10*3/uL 1.8-7.7 [facility] Comment on above: Performed By: #### R GISELE, CBC ####[address] No Panel InformationOrdered By: Geronimo Graham on 07-21-2023 Estimated GFR (CKD-EPI) 9.305 mL/Min [facility] Creatinine Clearance (Chem 9.76 [facility] 9.305 mL/Min [facility] 9.76 [facility] Nucleated erythrocytes [Pres ence] in Blood by Automated countOrdered By: Geronimo Graham on 07-21-2023 Nucleated RBC Auto Ql (Bld) 0.0 /100{WBC} 0-0.5 [facility] Phosphate [Mass/volume] in S steffanie or PlasmaOrdered By: Geronimo Graham on 07-21-2023 Phosphate [Mass/Vol] 2.3 mg/dL Low 2.5-4.5 [facility] Comment on above: Performed By: #### R GISELE, CBC ####[place] [id number] [facility] Platelet mean volume [Entiti c volume] in Blood by Automated countOrdered By: Geronimo Graham on 07-21-2023 Platelet mean volume (Bld) [Entitic vol] 8.3 fL 6.3-10.7 [facility] Comment on above: Performed By: #### R GISELE, CBC ####[place] [id number] [facility] Platelets [#/volume] in Bloo d by Automated countOrdered By: Geronimo Graham on 07-21-2023 Platelets (Bld) [#/Vol] 184 10*3/uL 150-450 [facility] Comment on above: Performed By: #### R GISELE, CBC ####[place] [id number] [facility] Potassium [Moles/volume] in Serum or PlasmaOrdered By: Geronimo Graham on 07-21-2023 Potassium [Moles/Vol] 5.1 mmol/L 3.5-5.1 [facility] Comment on above: Performed By: #### R GISELE, CBC ####[place] [id number] [facility] Renal Function Panelon 07-20 Albumin [Mass/Vol] 3.2 g/dL Low 3.5-5.7 [facility] Comment on above: Performed By: #### R GISELE, CBC ####[place] [id number] [facility] Creatinine Clr Calc Pharmacy 9.76 Normal [facility] Comment on above: Result Comment: PERF ORMED BY:[address] [place], [place] [phone] MEDICAL DIRECTORRAMEZ LARSON M.D. Performed By: #### R ENAL, CBC ####[address] [address] [facility] GFR/1.73 sq M.predicted MDRD (S/P/Bld) [Vol rate/Area] 9.305 mL/min/{1.73_m2} Normal [facility] Comment on above: Performed By: #### R GISELE, CBC ####[address] [address] [facility] Serum or plasma anion gap de terminationOrdered By: Geronimo Graham on 07-21-2023 Anion gap [Moles/Vol] 13.9 mmol/L 6.0-15.0 [facility] Comment on above: Performed By: #### R GISELE, CBC ####[address] [address] [facility] Sodium [Moles/volume] in Ser um or PlasmaOrdered By: Geronimo Graham on 07-21-2023 Sodium [Moles/Vol] 134 mmol/L Low 136-145 [facility] Comment on above: Performed By: #### R GISELE, CBC ####[address] [address] [facility] Urea nitrogen [Mass/volume] in Serum or PlasmaOrdered By: Geronimo Graham on 07-21-2023 Urea nitrogen [Mass/Vol] 48 mg/dL High 7-25 [facility] Comment on above: Performed By: #### R GISELE, CBC ####[address] [address] [facility] XR chest 2V*on 07-21-2023 XR chest 2V* Normal [facility] ECG 12 lead ECGon 07-20-2023 ECG 12 lead ECG Normal [facility] Glucose Poct Glucometerson 0 07-20-2023 Glucose [Mass/Vol] 279 mg/dL Normal [facility] Comment on above: Result Comment: [place] om Glucose Reference Range is dependent on time and content of last meal. Glucose of more than 200 mg/dL in a nonstressed, ambulatory subject supports the diagnosis of Diabetes Mellitus.PERFORMED BY:[address] [place], [place] [phone] MEDICAL DIRECTORRAMEZ LARSON M.D. Performed By: #### G LULS ####Point of Care testing, Glucose [Mass/Vol] 206 mg/dL Normal [facility] Comment on above: Result Comment: [facility] Glucose Reference Range is dependent on time and content of last meal. Glucose of more than 200 mg/dL in a nonstressed, ambulatory subject supports the diagnosis of Diabetes Mellitus.PERFORMED BY:[address] [place], [place] [phone] MEDICAL DIRECTORRAMEZ LARSON M.D. Performed By: #### G LULS ####Point of Care testing, Glucose [Mass/Vol] 204 mg/dL Normal [facility] Comment on above: Result Comment: [facility] Glucose Reference Range is dependent on time and content of last meal. Glucose of more than 200 mg/dL in a nonstressed, ambulatory subject supports the diagnosis of Diabetes Mellitus.PERFORMED BY:[address] [place], [place] [phone] MEDICAL MAJOR LARSON M.D. Performed By: #### G LULS ####Point of Care testing, Glucose [Mass/Vol] 145 mg/dL Normal [facility] Comment on above: Result Comment: [facility] Glucose Reference Range is dependent on time and content of last meal. Glucose of more than 200 mg/dL in a nonstressed, ambulatory subject supports the diagnosis of Diabetes Mellitus.PERFORMED BY:[address] [place], [place] [phone] BARRETT LARSON M.D. Performed By: #### G LULS ####Point of Care testing, Glucose Poct Glucometerson 0 07-19-2023 Glucose [Mass/Vol] 218 mg/dL Normal [facility] Comment on above: Result Comment: [place] om Glucose Reference Range is dependent on time and content of last meal. Glucose of more than 200 mg/dL in a nonstressed, ambulatory subject supports the diagnosis of Diabetes Mellitus.PERFORMED BY:[place] [address] [address] [place], [place] [phone] MEDICAL DIRECTORRAMEZ LARSON M.D. Performed By: #### G LULS ####Point of Care testing, Commemt1 Glu2: Cleaned Meter Normal [facility] Comment on above: Result Comment: PERF ORMED BY:[address] [place], [place] [phone] MEDICAL DIRECTORRAMEZ LARSON M.D. Performed By: #### G LULS ####Point of Care testing, Glucose [Mass/Vol] 139 mg/dL Normal [facility] Comment on above: Result Comment: [place] om Glucose Reference Range is dependent on time and content of last meal. Glucose of more than 200 mg/dL in a nonstressed, ambulatory subject supports the diagnosis of Diabetes Mellitus. Performed By: #### G LULS ####Point of Care testing, Commemt1 Glu2: Cleaned Meter Normal [facility] Comment on above: Result Comment: PERF ORMED BY:[address] [place], [place] [phone] MEDICAL DIRECTORRAMEZ LARSON M.D. Performed By: #### G LULS ####Point of Care testing, Glucose [Mass/Vol] 238 mg/dL Normal [facility] Comment on above: Result Comment: [place] om Glucose Reference Range is dependent on time and content of last meal. Glucose of more than 200 mg/dL in a nonstressed, ambulatory subject supports the diagnosis of Diabetes Mellitus. Performed By: #### G LULS ####Point of Care testing, Commemt1 Glu2: Cleaned Meter Normal [facility] Comment on above: Result Comment: PERF ORMED BY:[place] [address] [address] [place], [place] [phone] MEDICAL DIRECTORRAMEZ LARSON M.D. Performed By: #### G DAVID ####Point of Care testing, Glucose [Mass/Vol] 141 mg/dL Normal [facility] Comment on above: Result Comment: [facility] Glucose Reference Range is dependent on time and content of last meal. Glucose of more than 200 mg/dL in a nonstressed, ambulatory subject supports the diagnosis of Diabetes Mellitus. Performed By: #### G LUANNITA ####Point of Care testing, No Panel InformationOrdered By: Quintin Johnson on 07-19-2023 Bedside Glucose Comment Glu2: cleaned meter [facility] Glu2: cleaned meter [facility] Complete Blood Count Auto Di ffon 07-18-2023 Basophils (Bld) [#/Vol] 0.1 10*3/uL Normal 0.0-0.2 [facility] Comment on above: Result Comment: PERF ORMED BY:[address] [place], [place] [phone] MEDICAL DIRECTORRAMEZ LARSON M.D. Performed By: #### C BC, RENAL ####[place] [id number] [facility] Basophils/100 WBC (Bld) 0.8 % Normal . T abimael [facility] Comment on above: Performed By: #### C BC, RENAL ####[address] [address] [facility] Eosinophils (Bld) [#/Vol] 0.3 10*3/uL Normal 0.0-0.45 [facility] Comment on above: Performed By: #### C BC, RENAL ####[address] [address] [facility] Eosinophils/100 WBC (Bld) 4.1 % Normal . [facility] Comment on above: Performed By: #### C BC, RENAL ####[place] [id number] [facility] Erythrocyte distribution width (RBC) [Ratio] 17.1 % High 11.9-15.3 [facility] Comment on above: Performed By: #### C BC, RENAL ####[place] [id number] [facility] Hematocrit (Bld) [Volume fraction] 29.0 % Low 34.0-46.4 [facility] Comment on above: Performed By: #### C BC, RENAL ####[place] [id number] [facility] Hemoglobin (Bld) [Mass/Vol] 9.3 g/dL Low 11.8-15.4 [facility] Comment on above: Performed By: #### C BC, RENAL ####[address] Lymphocytes (Bld) [#/Vol] 1.0 10*3/uL Normal 1.00-4.8 [facility] Comment on above: Performed By: #### C BC, RENAL ####[address] Lymphocytes/100 WBC (Bld) 15.0 % Normal . [facility] Comment on above: Performed By: #### C BC, RENAL ####[place] [id number] [facility] MCH (RBC) [Entitic mass] 29.6 pg Normal 24.7-34.3 [facility] Comment on above: Performed By: #### C BC, RENAL ####[place] [id number] [facility] MCV (RBC) [Entitic vol] 92.1 fL Normal 80-100 T [facility] Comment on above: Performed By: #### C BC, RENAL ####[place] [id number] [facility] Mean Corpuscular HGB Conc 32.1 g/dL Normal 32.0-35.0 [facility] Comment on above: Performed By: #### C BC, RENAL ####[place] [id number] [facility] Monocytes (Bld) [#/Vol] 0.8 10*3/uL Normal 0.0-0.8 [facility] Comment on above: Performed By: #### C BC, RENAL ####[place] [address] [place] [address] [facility] Monocytes/100 WBC (Bld) 12.2 % Normal . T [facility] Comment on above: Performed By: #### C BC, RENAL ####[place] [address] [place] [address] [facility] Neutrophils (Bld) [#/Vol] 4.4 10*3/uL Normal 1.8-7.7 [facility] Comment on above: Performed By: #### C BC, RENAL ####[place] [address] [place] [address] [facility] Neutrophils/100 WBC (Bld) 67.9 % Normal . [facility] Comment on above: Performed By: #### C BC, RENAL ####[place] [address] [place] [address] [facility] NRBC% 0.0 /100{WBC} Normal 0-0.5 [facility] Comment on above: Performed By: #### C BC, RENAL ####[place] [address] [place] [address] [facility] Platelet mean volume (Bld) [Entitic vol] 8.3 fL Normal 6.3-10.7 [facility] Comment on above: Performed By: #### C BC, RENAL ####[address] [address] [facility] Platelets (Bld) [#/Vol] 223 10*3/uL Normal 150-450 [facility] Comment on above: Performed By: #### C BC, RENAL ####[place] [address] [place] [address] [facility] RBC (Bld) [#/Vol] 3.15 10*6/uL Low 3.60-5.00 [facility] Comment on above: Performed By: #### C BC, RENAL ####[place] [address] [place] [address] [facility] WBC (Bld) [#/Vol] 6.4 10*3/uL Normal 3.8-11.6 [facility] Comment on above: Performed By: #### C BC, RENAL ####[address] [address] [facility] Glucose Poct Glucometerson 0 07-18-2023 Glucose [Mass/Vol] 234 mg/dL Normal [facility] Comment on above: Result Comment: [place] om Glucose Reference Range is dependent on time and content of last meal. Glucose of more than 200 mg/dL in a nonstressed, ambulatory subject supports the diagnosis of Diabetes Mellitus.PERFORMED BY:[address] [place], [place] [phone] MEDICAL DIRECTORRAMEZ LARSON M.D. Performed By: #### G LULS ####Point of Care testing, Glucose [Mass/Vol] 152 mg/dL Normal [facility] Comment on above: Result Comment: [place] om Glucose Reference Range is dependent on time and content of last meal. Glucose of more than 200 mg/dL in a nonstressed, ambulatory subject supports the diagnosis of Diabetes Mellitus.PERFORMED BY:[address] [place], [place] [phone] MEDICAL DIRECTORRAMEZ LARSON M.D. Performed By: #### G LULS ####Point of Care testing, Glucose [Mass/Vol] 181 mg/dL Normal [facility] Comment on above: Result Comment: [place] om Glucose Reference Range is dependent on time and content of last meal. Glucose of more than 200 mg/dL in a nonstressed, ambulatory subject supports the diagnosis of Diabetes Mellitus.PERFORMED BY:[address] [place], [place] [phone] MEDICAL DIRECTORRAMEZ LARSON M.D. Performed By: #### G LULS ####Point of Care testing, Glucose [Mass/Vol] 143 mg/dL Normal [facility] Comment on above: Result Comment: [place] om Glucose Reference Range is dependent on time and content of last meal. Glucose of more than 200 mg/dL in a nonstressed, ambulatory subject supports the diagnosis of Diabetes Mellitus.PERFORMED BY:[address] [place], [place] [phone] MEDICAL DIRECTORRAMEZ LARSON M.D. Performed By: #### G LUANNITA ####Point of Care testing, Renal Function Panelon 07-17 Albumin [Mass/Vol] 3.3 g/dL Low 3.5-5.7 [facility] Comment on above: Performed By: #### C BC, RENAL ####[place] [id number] [facility] Anion gap [Moles/Vol] 15.7 mmol/L High 6.0-15.0 Th e [facility] Comment on above: Performed By: #### C BC, RENAL ####[place] [id number] [facility] Calcium [Mass/Vol] 9.9 mg/dL Normal 8.6-10.3 [facility] Comment on above: Performed By: #### C BC, RENAL ####[place] [address] [facility] Chloride [Moles/Vol] 95 mmol/L Low 98-107 [facility] Comment on above: Performed By: #### C BC, RENAL ####[place] [address] [facility] CO2 [Moles/Vol] 27.8 mmol/L Normal 21.0-31.0 [facility] Comment on above: Performed By: #### C BC, RENAL ####[place] [address] [facility] Creatinine [Mass/Vol] 4.01 mg/dL High 0.60-1.20 [facility] Comment on above: Performed By: #### C BC, RENAL ####[place] [id number] [facility] Creatinine Clr Calc Pharmacy 11.30 Normal [facility] Comment on above: Result Comment: PERF ORMED BY:[address] [place], [place] [phone] MEDICAL MAJOR LARSON M.D. Performed By: #### C BC, RENAL ####[place] [address] [place] [address] [place] GFR/1.73 sq M.predicted MDRD (S/P/Bld) [Vol rate/Area] 11.029 mL/min/{1.73_m2} Normal [facility] Comment on above: Performed By: #### C BC, RENAL ####[address] [address] [facility] Glucose [Mass/Vol] 144 mg/dL High 70-100 [facility] Comment on above: Result Comment: [place] Glucose Reference Range is dependent on time and content of last meal. Glucose of more than 200 mg/dL in a nonstressed, ambulatory subject supports the diagnosis of Diabetes Mellitus. ADA recommended reference range Performed By: #### C BC, RENAL ####[address] [address] [facility] Phosphate [Mass/Vol] 3.4 mg/dL Normal 2.5-4.5 [facility] Comment on above: Performed By: #### C BC, RENAL ####[address] [address] [facility] Potassium [Moles/Vol] 4.5 mmol/L Normal 3.5-5.1 [facility] Comment on above: Performed By: #### C BC, RENAL ####[address] [address] [facility] Sodium [Moles/Vol] 134 mmol/L Low 136-145 [facility] Comment on above: Performed By: #### C BC, RENAL ####[address] [address] [facility] Urea nitrogen [Mass/Vol] 38 mg/dL High 7-25 [facility] Comment on above: Performed By: #### C BC, RENAL ####[address] [address] [facility] Glucose Poct Glucometerson 0 07-17-2023 Commemt1 Glu2: Cleaned Meter Normal [facility] Comment on above: Result Comment: PERF ORMED BY:[address] [place] [phone] MEDICAL DIRECTORRAMEZ LARSON M.D. Performed By: #### G LULS ####Point of Care testing, Glucose [Mass/Vol] 171 mg/dL Normal [facility] Comment on above: Result Comment: [place] om Glucose Reference Range is dependent on time and content of last meal. Glucose of more than 200 mg/dL in a nonstressed, ambulatory subject supports the diagnosis of Diabetes Mellitus. Performed By: #### G LULS ####Point of Care testing, Commemt1 Glu2: Cleaned Meter Normal [facility] Comment on above: Result Comment: PERF ORMED BY:[place] [address] [place], [place] [phone] MEDICAL DIRECTORRAMEZ LARSON M.D. Performed By: #### G LULS ####Point of Care testing, Glucose [Mass/Vol] 208 mg/dL Normal [facility] Comment on above: Result Comment: [place] om Glucose Reference Range is dependent on time and content of last meal. Glucose of more than 200 mg/dL in a nonstressed, ambulatory subject supports the diagnosis of Diabetes Mellitus. Performed By: #### G LULS ####Point of Care testing, Commemt1 Glu2: Cleaned Meter Normal [facility] Comment on above: Result Comment: PERF ORMED BY:[address] [place], [place] [phone] MEDICAL DIRECTORRAMEZ LARSON M.D. Performed By: #### G LULS ####Point of Care testing, Glucose [Mass/Vol] 118 mg/dL Normal [facility] Comment on above: Result Comment: [place] om Glucose Reference Range is dependent on time and content of last meal. Glucose of more than 200 mg/dL in a nonstressed, ambulatory subject supports the diagnosis of Diabetes Mellitus. Performed By: #### G LULS ####Point of Care testing, Glucose [Mass/Vol] 156 mg/dL Normal [facility] Comment on above: Result Comment: [place] om Glucose Reference Range is dependent on time and content of last meal. Glucose of more than 200 mg/dL in a nonstressed, ambulatory subject supports the diagnosis of Diabetes Mellitus.PERFORMED BY:[place] [address] [place], [place] [phone] MEDICAL DIRECTORRAMEZ LARSON M.D. Performed By: #### G LULS ####Point of Care testing, Glucose Poct Glucometerson 0 07-16-2023 Glucose [Mass/Vol] 214 mg/dL Normal [facility] Comment on above: Result Comment: [facility] Glucose Reference Range is dependent on time and content of last meal. Glucose of more than 200 mg/dL in a nonstressed, ambulatory subject supports the diagnosis of Diabetes Mellitus.PERFORMED BY:[address] [place] [phone] MEDICAL MAJOR LARSON M.D. Performed By: #### G LULS ####Point of Care testing, Glucose [Mass/Vol] 124 mg/dL Normal [facility] Comment on above: Result Comment: [facility] Glucose Reference Range is dependent on time and content of last meal. Glucose of more than 200 mg/dL in a nonstressed, ambulatory subject supports the diagnosis of Diabetes Mellitus.PERFORMED BY:[place] [address] [place], [place] [phone] BARRETT LARSON M.D. Performed By: #### G LULS ####Point of Care testing, Glucose [Mass/Vol] 168 mg/dL Normal [facility] Comment on above: Result Comment: [facility] Glucose Reference Range is dependent on time and content of last meal. Glucose of more than 200 mg/dL in a nonstressed, ambulatory subject supports the diagnosis of Diabetes Mellitus.PERFORMED BY:[address] [place], [place] [phone] BARRETT LARSON M.D. Performed By: #### G LULS ####Point of Care testing, Glucose [Mass/Vol] 106 mg/dL Normal [facility] Comment on above: Result Comment: [facility] Glucose Reference Range is dependent on time and content of last meal. Glucose of more than 200 mg/dL in a nonstressed, ambulatory subject supports the diagnosis of Diabetes Mellitus.PERFORMED BY:[facility] [place] [phone] MEDICAL DIRECTORRAMEZ LARSON M.D. Performed By: #### G DAVID ####Point of Care testing, AChR Binding Abs, Serumon AChR Binding Abs, Serum <0.03 Normal 0.00-0.24 [facility] Comment on above: Result Comment: Nega tive: 0.00 - 0.24 Borderline: 0.25 - 0.40 Positive: >0.40 Performed at: [address] [id number] Retail Worker: Georgia Rosa MD, Phone: [phone] Performed By: #### A CHR MOD, ACHR BLOCK, ACHR BIND, MUSK ####[facility] , AChR Blocking Abs, Serumon 0 07-15-2023 AChR Blocking Abs, Serum 21 % Normal 0-25 [facility] [facility] Comment on above: Result Comment: This test was developed and its performance characteristics determined by [employer]. It has not been cleared or approved by the Food and Drug Administration. Negative: 0 - 25 Borderline: 26 - 30 Positive: >30 Performed at: [address] [id number] Retail Worker: Georgia Rosa MD, Phone: [phone] Performed By: #### A CHR MOD, ACHR BLOCK, ACHR BIND, MUSK ####[facility] , AChR Modulating Abs, Serumon 07-15-2023 AChR Modulating Abs, Serum 0 % Normal 0-45 [facility] Comment on above: Result Comment: This test was developed and its performance characteristics determined by [employer]. It has not been cleared or approved by the Food and Drug Administration. Interpretive Information: Negative: 0 - 45% Positive: > 45% No single value for AChR-modulating antibody should be used as a sole basis for diagnosis or response to therapy. Performed at: [address] [id number] Retail Worker: Georgia Rosa MD, Phone: [phone] BY:[address] [place], [place] [phone] MEDICAL DIRECTORRAMEZ LARSON M.D. Performed By: #### A CHR MOD, ACHR BLOCK, ACHR BIND, MUSK ####[facility] , Basic Metabolic Panelon 060 Anion gap [Moles/Vol] 15.1 mmol/L High 6.0-15.0 Th e [facility] Comment on above: Performed By: #### B MP ####[address] [address] [facility] Calcium [Mass/Vol] 9.2 mg/dL Normal 8.6-10.3 [facility] Comment on above: Performed By: #### B MP ####[address] [address] [facility] Chloride [Moles/Vol] 95 mmol/L Low 98-107 [facility] Comment on above: Performed By: #### B MP ####[address] [address] [facility] CO2 [Moles/Vol] 28.7 mmol/L Normal 21.0-31.0 [facility] Comment on above: Performed By: #### B MP ####[address] [address] [facility] Creatinine [Mass/Vol] 3.12 mg/dL Significan t change up 0.60-1.20 [facility] Comment on above: Performed By: #### B MP ####[address] [address] [facility] Creatinine Clr Calc Pharmacy 14.49 Normal [facility] Comment on above: Result Comment: PERF ORMED BY:[address] [place], [place] [phone] MEDICAL DIRECTORRAMEZ LARSON M.D. Performed By: #### B MP ####[address] [address] [facility] GFR/1.73 sq M.predicted MDRD (S/P/Bld) [Vol rate/Area] 14.905 mL/min/{1.73_m2} Normal [facility] Comment on above: Performed By: #### B MP ####[address] Glucose [Mass/Vol] 155 mg/dL High 70-100 [facility] Comment on above: Result Comment: [facility] Glucose Reference Range is dependent on time and content of last meal. Glucose of more than 200 mg/dL in a nonstressed, ambulatory subject supports the diagnosis of Diabetes Mellitus. ADA recommended reference range Performed By: #### B MP ####[address] Potassium [Moles/Vol] 4.8 mmol/L Normal 3.5-5.1 [facility] Comment on above: Performed By: #### B MP ####[address] Sodium [Moles/Vol] 134 mmol/L Low 136-145 [facility] Comment on above: Performed By: #### B MP ####[address] Urea nitrogen [Mass/Vol] 30 mg/dL High 7-25 [facility] Comment on above: Performed By: #### B MP ####[address] Complete Blood Count Auto Di ffon 07-15-2023 Basophils (Bld) [#/Vol] 0.0 10*3/uL Normal 0.0-0.2 [facility] Comment on above: Result Comment: PERF ORMED BY:[address] [place], [place] [phone] MEDICAL DIRECTORRAMEZ LARSON M.D. Performed By: #### C BC ####[id number] [facility] Basophils/100 WBC (Bld) 0.6 % Normal . T [facility] Comment on above: Performed By: #### C BC ####[address] Eosinophils (Bld) [#/Vol] 0.1 10*3/uL Normal 0.0-0.45 [facility] Comment on above: Performed By: #### C BC ####[address] Eosinophils/100 WBC (Bld) 1.3 % Normal . [facility] Comment on above: Performed By: #### C BC ####[address] Erythrocyte distribution width (RBC) [Ratio] 17.3 % High 11.9-15.3 [facility] Comment on above: Performed By: #### C BC ####[address] Hematocrit (Bld) [Volume fraction] 28.8 % Low 34.0-46.4 [facility] Comment on above: Performed By: #### C BC ####[address] Hemoglobin (Bld) [Mass/Vol] 9.2 g/dL Low 11.8-15.4 [facility] Comment on above: Performed By: #### C BC ####[address] Lymphocytes (Bld) [#/Vol] 1.0 10*3/uL Normal 1.00-4.8 [facility] Comment on above: Performed By: #### C BC ####[address] Lymphocytes/100 WBC (Bld) 12.5 % Normal . [facility] Comment on above: Performed By: #### C BC ####[address] MCH (RBC) [Entitic mass] 29.0 pg Normal 24.7-34.3 [facility] Comment on above: Performed By: #### C BC ####[address] MCV (RBC) [Entitic vol] 90.9 fL Normal 80-100 [facility] Comment on above: Performed By: #### C BC ####[address] Mean Corpuscular HGB Conc 31.9 g/dL Low 32.0-35.0 [facility] Comment on above: Performed By: #### C BC ####[address] Monocytes (Bld) [#/Vol] 1.2 10*3/uL High 0.0-0.8 [facility] Comment on above: Performed By: #### C BC ####[address] Monocytes/100 WBC (Bld) 15.2 % Normal . [facility] Comment on above: Performed By: #### C BC ####[address] Neutrophils (Bld) [#/Vol] 5.5 10*3/uL Normal 1.8-7.7 [facility] Comment on above: Performed By: #### C BC ####[address] Neutrophils/100 WBC (Bld) 70.4 % Normal . [facility] Comment on above: Performed By: #### C BC ####[address] NRBC% 0.0 /100{WBC} Normal 0-0.5 [facility] Comment on above: Performed By: #### C BC ####[address] Platelet mean volume (Bld) [Entitic vol] 8.5 fL Normal 6.3-10.7 [facility] Comment on above: Performed By: #### C BC ####[place] [address] [facility] Platelets (Bld) [#/Vol] 237 10*3/uL Normal 150-450 [facility] Comment on above: Performed By: #### C BC ####[address] [address] [facility] RBC (Bld) [#/Vol] 3.17 10*6/uL Low 3.60-5.00 [facility] Comment on above: Performed By: #### C BC ####[address] [address] [facility] WBC (Bld) [#/Vol] 7.9 10*3/uL Normal 3.8-11.6 [facility] Comment on above: Performed By: #### C BC ####[address] [facility] Glucose Poct Glucometerson 0 07-15-2023 Commemt1 Glu2: Cleaned Meter Normal [facility] Comment on above: Result Comment: PERF ORMED BY:[address] [place], [place] [phone] MEDICAL DIRECTORRAMEZ LARSON M.D. Performed By: #### G LULS ####Point of Care testing, Glucose [Mass/Vol] 213 mg/dL Normal [facility] Comment on above: Result Comment: [place] [facility] Glucose Reference Range is dependent on time and content of last meal. Glucose of more than 200 mg/dL in a nonstressed, ambulatory subject supports the diagnosis of Diabetes Mellitus. Performed By: #### G LULS ####Point of Care testing, Glucose [Mass/Vol] 135 mg/dL Normal [facility] Comment on above: Result Comment: [place] om Glucose Reference Range is dependent on time and content of last meal. Glucose of more than 200 mg/dL in a nonstressed, ambulatory subject supports the diagnosis of Diabetes Mellitus.PERFORMED BY:[address] [place], [place] [phone] MEDICAL DIRECTORRAMEZ LARSON M.D. Performed By: #### G LULS ####Point of Care testing, Glucose [Mass/Vol] 192 mg/dL Normal [facility] Comment on above: Result Comment: [facility] Glucose Reference Range is dependent on time and content of last meal. Glucose of more than 200 mg/dL in a nonstressed, ambulatory subject supports the diagnosis of Diabetes Mellitus.PERFORMED BY:[address] [place], [place] [phone] MEDICAL DIRECTORRAMEZ LARSON M.D. Performed By: #### G LULS ####Point of Care testing, Glucose [Mass/Vol] 138 mg/dL Normal [facility] Comment on above: Result Comment: [facility] Glucose Reference Range is dependent on time and content of last meal. Glucose of more than 200 mg/dL in a nonstressed, ambulatory subject supports the diagnosis of Diabetes Mellitus.PERFORMED BY:[address] [place], [place] [phone] MEDICAL DIRECTORRAMEZ LARSON M.D. Performed By: #### G LULS ####Point of Care testing, Muscle specific receptor tyr osine kinase Ab [Units/volume] in Serum by ImmunoassayOrdered By: Danny Mcclelland on 07-15-2023 Muscle specific receptor tyrosine kinase Ab IA Qn (S) <1.0 U/mL . [facility] Comment on above: Reference Range: Neg ative: <1.0 Positive: 1.0 or higher A positive result, in the context of congruent clinical findings, confirms the diagnosis of autoimmune MuSK myasthenia gravis.COMMENTS: - Myasthenia gravis (MG) is caused by auto-antibodies against proteins of the neuromuscular junction. Most cases (about 90%) of generalized MG are anti- acetylcholine receptor (AChR) antibody-positive.(1) - Of generalized MG patients who lack anti-AChR antibodies (AChR-seronegative), about 40% are positive for Muscle- Specific Kinase (MuSK) antibody.(1,2) - Though a positive MuSK result is specific for the diagnosis of MuSK MG, a negative MuSK result does not rule out a MG diagnosis. - MuSK antibody levels have been shown to correlate with disease severity.(3) Serial measurements may be useful to follow treatment.References:1. Berrih-Aknin S et al. J Autoimmunity 2014;52:90-100.2. Johannijbessie MG et al. PNAS 2013;110(51);00250-37357.3. Estuardo E et al. Neurology 2006;67:505-507.This test was developed and its performance characteristicsdetermined by [employer]. It has not been cleared or approvedby the Food and Drug Administration.Performed at: [facility] [id number] [place], [place] [id number] Director: Saurabh Burnham MD, Phone: [phone] Musk Antibody Teston 024 MuSK Antibodies <1.0 Normal . [facility] Comment on above: Result Comment: Refe rence Range: Negative: <1.0 Positive: 1.0 or higher A positive result, in the context of congruent clinical findings, confirms the diagnosis of autoimmune MuSK myasthenia gravis. COMMENTS: - Myasthenia gravis (MG) is caused by auto-antibodies against proteins of the neuromuscular junction. Most cases (about 90%) of generalized MG are anti- acetylcholine receptor (AChR) antibody-positive.(1) - Of generalized MG patients who lack anti-AChR antibodies (AChR-seronegative), about 40% are positive for Muscle- Specific Kinase (MuSK) antibody.(1,2) - Though a positive MuSK result is specific for the diagnosis of MuSK MG, a negative MuSK result does not rule out a MG diagnosis. - MuSK antibody levels have been shown to correlate with disease severity.(3) Serial measurements may be useful to follow treatment. References: 1. Gayle S et al. J Autoimmunity 2014;52:90-100. 2. Vicenta WILKINSON et al. PNAS 2013;110(51);89574-54845. 3. Estuardo E et al. Neurology 2006;67:505-507. This test was developed and its performance characteristics determined by [employer]. It has not been cleared or approved by the Food and Drug Administration. Performed at: [facility] [address] [place], [place] [id number] Retail Worker: Saurabh Burnham MD, Phone: [phone] BY:[facility] [place], [place] [phone] MEDICAL DIRECTORRAMEZ LARSON M.D. Performed By: #### A CHR MOD, ACHR BLOCK, ACHR BIND, MUSK ####[facility] , No Panel InformationOrdered By: Danny Mcclelland on 07-15-2023 Acetylcholine Receptor Binding Ab <0.03 nmol/L 0.00-0.24 [facility] Comment on above: Negative: 0.00 - 0.2 4 Borderline: 0.25 - 0.40 Positive: >0.40Performed at: [address] [id number] Director: Georgia Rosa MD, Phone: [phone] <0.03 nmol/L 0.00-0.24 [facility] Serum acetylcholine receptor blocking antibody/total acetylcholine antibody ratioOrdered By: Danny Mcclelland on 07-15-2023 Acetylcholine receptor blocking Ab/Acetylcholine Ab.total (S) [Molar fraction] 21 % 0-25 [facility] Comment on above: This test was develo ped and its performance characteristicsdetermined by [employer]. It has not been cleared orapproved by the Food and Drug Administration. Negative: 0 - 25 Borderline: 26 - 30 Positive: >30Performed at: [address] [id number] Director: Georgia Rosa MD, Phone: [phone] Varicella zoster virus DNA [ Presence] in Cerebral spinal fluid by MADISON with probe deteOrdered By: Danny Mcclelland on 07-15-2023 VZV DNA MADISON+probe Ql (CSF) 0 % 0-45 [facility] Comment on above: This test was develo ped and its performance characteristicsdetermined by [employer]. It has not been cleared orapproved by the Food and Drug Administration. Interpretive Information: Negative: 0 - 45% Positive: > 45%No single value for AChR-modulating antibody shouldbe used as a sole basis for diagnosis or responseto therapy.Performed at: [address] [id number] Director: Georgai Rosa MD, Phone: [phone] A1C with Estimated Average G bharat 07-14-2023 Glucose [Mass/Vol] 180 mg/dL Normal [facility] Comment on above: Result Comment: PERF ORMED BY:[address] [place], [place] [phone] MEDICAL DIRECTORRAMEZ LARSON M.D. Performed By: #### A 1C WT eA ####[address] [place] [address] [facility] Automated epithelial cells c ount in urine sediment (number/area)Ordered By: Quitnin Johnson on 07-14-2023 Epithelial cells Auto (Urine sed) [#/Area] 10-19 [HPF] High 0-2 [facility] Bacteria [Presence] in Urine by AutomatedOrdered By: Quintin Johnson on 07-14-2023 Bacteria Auto Ql (U) None seen [HPF] None Seen [facility] Bacteria identified Cx Nom ( U)Ordered By: Quintin Johnson on 07-14-2023 Urine culture routine Proteus mirabilis Abnormal [facility] Bilirubin Test strip Ql (U)O rdered By: Quintin Johnson on 07-14-2023 Bilirubin Ql (U) Negative Negative [facility] CT head/brain wo conon 07-13 CT head/brain wo con Normal [facility] Casts [#/area] in Urine sedi ment by Microscopy low power fieldOrdered By: Quintin Johnson on 07-14-2023 Casts LM.LPF (Urine sed) [#/Area] None seen [LPF] None Seen [facility] Color of Urine by AutoOrdere d By: Quintin Johnson on 07-14-2023 Color (U) Yellow Yellow [facility] Comment on above: Order Comment: Name Collection Type:: Voided Performed By: #### C UU, ADDONUAPLUS ####[address] [place] [address] [facility] Dipstick and Microscopicon 0 07-14-2023 Appearance (U) Turbid Critically abnormal Clear [facility] Comment on above: Order Comment: Name Collection Type:: Voided Performed By: #### C UU, ADDONUAPLUS ####[address] [address] [facility] Bacteria,Urine None Seen Normal None Seen [facility] Comment on above: Order Comment: Name Collection Type:: Voided Performed By: #### C UU, ADDONUAPLUS ####[address] [address] [facility] Bilirubin,Urine Negative Normal Negative [facility] Comment on above: Order Comment: Name Collection Type:: Voided Performed By: #### C UU, ADDONUAPLUS ####[address] [address] [facility] Glucose Ql (U) Normal Normal Normal [facility] Comment on above: Order Comment: Name Collection Type:: Voided Performed By: #### C UU, ADDONUAPLUS ####[address] [address] [facility] Ketones Ql (U) Trace High Negative [facility] Comment on above: Order Comment: Name Collection Type:: Voided Performed By: #### C UU, ADDONUAPLUS ####[address] [address] [facility] Leukocyte esterase Test strip Ql (U) 4+ High Negative [facility] Comment on above: Order Comment: Name Collection Type:: Voided Performed By: #### C UU, ADDONUAPLUS ####[address] [address] [facility] Nitrite,Urine Negative Normal Negative [facility] Comment on above: Order Comment: Name Collection Type:: Voided Performed By: #### C UU, ADDONUAPLUS ####[address] [address] [facility] Occult Blood,Urine 3+ High Negative [facility] Comment on above: Order Comment: Name Collection Type:: Voided Result Comment: PERF ORMED BY:[address] [place], [place] [phone] MEDICAL DIRECTORRAMEZ LARSON M.D. Performed By: #### C UU, ADDONUAPLUS ####[address] [address] [facility] Other Casts,Urine None Seen Normal None Seen [facility] Comment on above: Order Comment: Name Collection Type:: Voided Performed By: #### C UU, ADDONUAPLUS ####[address] [address] [facility] RBC,Urine 5-9 High 0-4 [facility] Comment on above: Order Comment: Name Collection Type:: Voided Performed By: #### C UU, ADDONUAPLUS ####[address] [address] [facility] Specificy [place],Urine 1.013 Normal 1.001-1.030 [facility] Comment on above: Order Comment: Name Collection Type:: Voided Performed By: #### C UU, ADDONUAPLUS ####[place] [id number] [facility] Squamous Epithelial Cell,Urine 10-19 High 0-2 [facility] Comment on above: Order Comment: Name Collection Type:: Voided Performed By: #### C UU, ADDONUAPLUS ####[place] [address] [facility] Urobilinogen,Urine Normal Normal Normal [facility] Comment on above: Order Comment: Name Collection Type:: Voided Performed By: #### C UU, ADDONUAPLUS ####[place] [address] [facility] WBC,Urine Innumerable High 0-4 [facility] Comment on above: Order Comment: Name Collection Type:: Voided Performed By: #### C UU, ADDONUAPLUS ####[place] [id number] [facility] Yeast,Urine None Seen Normal None Seen [facility] Comment on above: Order Comment: Name Collection Type:: Voided Result Comment: PERF ORMED BY:[address] [place], [place] [phone] MEDICAL DIRECTORRAMEZ LARSON M.D. Performed By: #### C UU, ADDONUAPLUS ####[facility] [place] [address] [place] Erythrocytes [#/area] in Uri ne sediment by Automated countOrdered By: Quintin Johnson on 07-14-2023 RBC Auto (Urine sed) [#/Area] 5-9 [HPF] High 0-4 [facility] Glucose Poct Glucometerson 0 07-14-2023 Glucose [Mass/Vol] 228 mg/dL Normal [facility] Comment on above: Result Comment: [place] om Glucose Reference Range is dependent on time and content of last meal. Glucose of more than 200 mg/dL in a nonstressed, ambulatory subject supports the diagnosis of Diabetes Mellitus.PERFORMED BY:[address] [place], [place] [phone] MEDICAL DIRECTORRAMEZ LARSON M.D. Performed By: #### G LULS ####Point of Care testing, Glucose [Mass/Vol] 125 mg/dL Normal [facility] Comment on above: Result Comment: [place] om Glucose Reference Range is dependent on time and content of last meal. Glucose of more than 200 mg/dL in a nonstressed, ambulatory subject supports the diagnosis of Diabetes Mellitus.PERFORMED BY:[address] [place], [place] [phone] MEDICAL DIRECTORRAMEZ LARSON M.D. Performed By: #### G LULS ####Point of Care testing, Commemt1 Glu2: Cleaned Meter Normal [facility] Comment on above: Result Comment: PERF ORMED BY:[address] [place], [place] [phone] MEDICAL DIRECTORRAMEZ LARSON M.D. Performed By: #### G LULS ####Point of Care testing, Glucose [Mass/Vol] 292 mg/dL Normal [facility] Comment on above: Result Comment: [place] om Glucose Reference Range is dependent on time and content of last meal. Glucose of more than 200 mg/dL in a nonstressed, ambulatory subject supports the diagnosis of Diabetes Mellitus. Performed By: #### G LULS ####Point of Care testing, Glucose [Mass/Vol] 158 mg/dL Normal [facility] Comment on above: Result Comment: [facility] Glucose Reference Range is dependent on time and content of last meal. Glucose of more than 200 mg/dL in a nonstressed, ambulatory subject supports the diagnosis of Diabetes Mellitus.PERFORMED BY:[address] [place], [place] [phone] MEDICAL DIRECTORRAMEZ LARSON M.D. Performed By: #### G LULS ####Point of Care testing, Glucose mean value [Mass/vol ume] in Blood Estimated from glycated hemoglobinOrdered By: Edie Ferrera on 07-14-2023 Average glucose Estimated from glycated hemoglobin (Bld) [Mass/Vol] 180 mg/dL [facility] Hemoglobin A1c percentageOrd ered By: Edie Ferrera on 07-14-2023 HbA1c (Bld) [Mass fraction] 7.9 % High 4.3-5.6 [facility] Comment on above: Result Comment: Incr eased risk for diabetes: 5.7 - 6.4 diabetes: >6.4 glycemic control for adults with diabetes: <7.0 Performed By: #### A 1C WT eA ####[address] Increased risk for d iabetes: 5.7 - 6.4diabetes: >6.4glycemic control for adults with diabetes: <7.0 Hemogram CBC Without Diffon 07-14-2023 Erythrocyte distribution width (RBC) [Ratio] 17.4 % High 11.9-15.3 [facility] Comment on above: Performed By: #### C BCNO, RENAL ####[address] Hematocrit (Bld) [Volume fraction] 28.2 % Low 34.0-46.4 [facility] Comment on above: Performed By: #### C BCNO, RENAL ####[address] Hemoglobin (Bld) [Mass/Vol] 9.0 g/dL Low 11.8-15.4 [facility] Comment on above: Performed By: #### C BCNO, RENAL ####[place] [id number] [facility] MCH (RBC) [Entitic mass] 29.1 pg Normal 24.7-34.3 [facility] Comment on above: Performed By: #### C BCNO, RENAL ####[address] MCV (RBC) [Entitic vol] 91.1 fL Normal 80-100 T [facility] Comment on above: Performed By: #### C BCNO, RENAL ####[address] Mean Corpuscular HGB Conc 31.9 g/dL Low 32.0-35.0 [facility] Comment on above: Performed By: #### C BCNO, RENAL ####[address] Platelet mean volume (Bld) [Entitic vol] 8.3 fL Normal 6.3-10.7 [facility] Comment on above: Result Comment: PERF ORMED BY:[address] [place], [place] [phone] MEDICAL DIRECTORRAMEZ LARSON M.D. Performed By: #### C BCNO, RENAL ####[place] [id number] [facility] Platelets (Bld) [#/Vol] 222 10*3/uL Normal 150-450 [facility] Comment on above: Performed By: #### C BCNO, RENAL ####[place] [id number] [facility] RBC (Bld) [#/Vol] 3.10 10*6/uL Low 3.60-5.00 [facility] Comment on above: Performed By: #### C BCNO, RENAL ####[place] [id number] [facility] WBC (Bld) [#/Vol] 7.7 10*3/uL Normal 3.8-11.6 [facility] Comment on above: Performed By: #### C BCSERAFIN, RENAL ####[place] [id number] [facility] Ketones Auto test strip (U) [Mass/Vol]Ordered By: Quintin Johnson on 07-14-2023 Ketones (U) [Mass/Vol] Trace High Negative [facility] Leukocytes [#/area] in Urine sediment by Automated countOrdered By: Quintin Johnson on 07-14-2023 WBC Auto (Urine sed) [#/Area] Innumerable [HPF] High 0-4 [facility] Nitrite Test strip Ql (U)Ord ered By: Quintin Johnson on 07-14-2023 Nitrite Ql (U) Negative Negative [facility] Renal Function Panelon 07-13 Albumin [Mass/Vol] 3.0 g/dL Low 3.5-5.7 [facility] Comment on above: Performed By: #### C BCSERAFIN, RENAL ####[place] [id number] [facility] Anion gap [Moles/Vol] 16.0 mmol/L High 6.0-15.0 Th [facility] Comment on above: Performed By: #### C KATHRIN, RENAL ####[address] Calcium [Mass/Vol] 9.3 mg/dL Normal 8.6-10.3 [facility] Comment on above: Performed By: #### C BCSERAFIN, RENAL ####[place] [id number] [facility] Chloride [Moles/Vol] 94 mmol/L Low 98-107 [facility] Comment on above: Performed By: #### C BCNO, RENAL ####[place] [id number] [facility] CO2 [Moles/Vol] 27.5 mmol/L Normal 21.0-31.0 [facility] Comment on above: Performed By: #### C BCNO, RENAL ####[address] [address] [facility] Creatinine [Mass/Vol] 5.18 mg/dL High 0.60-1.20 [facility] Comment on above: Performed By: #### C KATHRIN, RENAL ####[place] [address] [place] [phone] [facility] Creatinine Clr Calc Pharmacy 8.77 Normal [facility] Comment on above: Result Comment: PERF ORMED BY:[address] [place], [place] [phone] MEDICAL MAJOR LARSON M.D. Performed By: #### C KATHRIN, RENAL ####[address] GFR/1.73 sq M.predicted MDRD (S/P/Bld) [Vol rate/Area] 8.112 mL/min/{1.73_m2} Normal [facility] Comment on above: Performed By: #### C KATHRIN, RENAL ####[address] Glucose [Mass/Vol] 153 mg/dL High 70-100 [facility] Comment on above: Result Comment: [place] Glucose Reference Range is dependent on time and content of last meal. Glucose of more than 200 mg/dL in a nonstressed, ambulatory subject supports the diagnosis of Diabetes Mellitus. ADA recommended reference range Performed By: #### C KATHRIN, RENAL ####[address] Phosphate [Mass/Vol] 2.9 mg/dL Normal 2.5-4.5 [facility] Comment on above: Performed By: #### C KATHRIN, RENAL ####[place] [id number] [facility] Potassium [Moles/Vol] 5.5 mmol/L High 3.5-5.1 [facility] Comment on above: Performed By: #### C KATHRIN, RENAL ####[place] [id number] [facility] Sodium [Moles/Vol] 132 mmol/L Low 136-145 [facility] Comment on above: Performed By: #### C BCNO, RENAL ####[place] [address] [place] [phone] [facility] Urea nitrogen [Mass/Vol] 57 mg/dL High 7-25 [facility] Comment on above: Performed By: #### C BCNO, RENAL ####[place] [address] [place] [phone] [facility] Specific gravity Auto test s trip (U) [Rel density]Ordered By: Quintin Johnson on 07-14-2023 Specific gravity (U) [Rel density] 1.013 1.001-1.030 [facility] Urine Cultureon 07-14-2023 Bacteria identified Cx Nom (U) Normal [facility] Comment on above: Performed By: #### C UU, ADDONUAPLUS ####[place] [address] [place] [phone] [facility] Urine clarity by refractomet ry automatedOrdered By: Quintin Johnson on 07-14-2023 Clarity Refractometry automated (U) Turbid Abnormal Clear [facility] Urine culture routineOrdered By: Quintin Johnson on 07-14-2023 Bacteria identified Cx Nom (U) Proteus mirabilis Abnormal [facility] Urine glucose measurement by automated test strip (mass/volume)Ordered By: Quintin Johnson on 07-14-2023 Glucose Auto test strip (U) [Mass/Vol] Normal mg/dL Normal [facility] Urine hemoglobin detection b y automated test stripOrdered By: Quintin Johnson on 07-14-2023 Hemoglobin Auto test strip Ql (U) 3+ High Negative [facility] Urine leukocyte esterase det ection by automated test stripOrdered By: Quintin Johnson on 07-14-2023 Leukocyte esterase Auto test strip Ql (U) 4+ High Negative [facility] Urine pH measurement by auto mated test stripOrdered By: Quintin Johnson on 07-14-2023 pH (U) 6.5 [pH] 5.0-9.0 [facility] Comment on above: Order Comment: Name Collection Type:: Voided Performed By: #### C UU, ADDONUAPLUS ####[place] [id number] [facility] Urine protein measurement by automated test strip (mass/volume)Ordered By: Quintin Johnson on 07-14-2023 Protein (U) [Mass/Vol] 300 mg/dL High Negative [facility] Comment on above: Order Comment: Name Collection Type:: Voided Performed By: #### C UU, ADDONUAPLUS ####[facility] [address] [place] [phone] [facility] Urobilinogen Auto test strip (U) [Mass/Vol]Ordered By: Quintin Johnson on 07-14-2023 Urobilinogen (U) [Mass/Vol] Normal mg/dL Normal [facility] Yeast detection in urine sed iment by light microscopyOrdered By: Quintin Johnson on 07-14-2023 Yeast LM Ql (Urine sed) None seen [HPF] None Se en [facility] ECG 12 lead ECGon 07-13-2023 ECG 12 lead ECG Normal [facility] Glucose Poct Glucometerson 0 07-13-2023 Glucose [Mass/Vol] 145 mg/dL Normal [facility] Comment on above: Result Comment: [facility] Glucose Reference Range is dependent on time and content of last meal. Glucose of more than 200 mg/dL in a nonstressed, ambulatory subject supports the diagnosis of Diabetes Mellitus.PERFORMED BY:[address] [place], [place] [phone] MEDICAL MAJOR LARSON M.D. Performed By: #### G LULS ####Point of Care testing, Glucose [Mass/Vol] 262 mg/dL Normal [facility] Comment on above: Result Comment: [facility] Glucose Reference Range is dependent on time and content of last meal. Glucose of more than 200 mg/dL in a nonstressed, ambulatory subject supports the diagnosis of Diabetes Mellitus.PERFORMED BY:[address] [place], [place] [phone] MEDICAL DIRECTORRAMEZ LARSON M.D. Performed By: #### G LULS ####Point of Care testing, Glucose [Mass/Vol] 246 mg/dL Normal [facility] Comment on above: Result Comment: [facility] Glucose Reference Range is dependent on time and content of last meal. Glucose of more than 200 mg/dL in a nonstressed, ambulatory subject supports the diagnosis of Diabetes Mellitus.PERFORMED BY:[place] [address] [place], [place] [phone] MEDICAL DIRECTORRAMEZ LARSON M.D. Performed By: #### G LULS ####Point of Care testing, Glucose [Mass/Vol] 143 mg/dL Normal [facility] Comment on above: Result Comment: [facility] Glucose Reference Range is dependent on time and content of last meal. Glucose of more than 200 mg/dL in a nonstressed, ambulatory subject supports the diagnosis of Diabetes Mellitus.PERFORMED BY:[place] [address] [place], [place] [phone] MEDICAL DIRECTORRAMEZ LARSON M.D. Performed By: #### G LULS ####Point of Care testing, Glucose Poct Glucometerson 0 07-12-2023 Commemt1 Glu2: Cleaned Meter Normal [facility] Comment on above: Result Comment: PERF ORMED BY:[place] [address] [place] [phone] MEDICAL DIRECTORRAMEZ LARSON M.D. Performed By: #### G LULS ####Point of Care testing, Glucose [Mass/Vol] 232 mg/dL Normal [facility] Comment on above: Result Comment: [facility] Glucose Reference Range is dependent on time and content of last meal. Glucose of more than 200 mg/dL in a nonstressed, ambulatory subject supports the diagnosis of Diabetes Mellitus. Performed By: #### G LULS ####Point of Care testing, Commemt1 Glu2: Cleaned Meter Normal [facility] Comment on above: Result Comment: PERF ORMED BY:[place] [address] [place], [place] [phone] MEDICAL DIRECTORRAMEZ LARSON M.D. Performed By: #### G LULS ####Point of Care testing, Glucose [Mass/Vol] 133 mg/dL Normal [facility] Comment on above: Result Comment: [place] om Glucose Reference Range is dependent on time and content of last meal. Glucose of more than 200 mg/dL in a nonstressed, ambulatory subject supports the diagnosis of Diabetes Mellitus. Performed By: #### G LULS ####Point of Care testing, Commemt1 Glu2: Cleaned Meter Normal [facility] Comment on above: Result Comment: PERF ORMED BY:[place] [address] [place], [place] [phone] MEDICAL DIRECTORRAMEZ LARSON M.D. Performed By: #### G LULS ####Point of Care testing, Glucose [Mass/Vol] 237 mg/dL Normal [facility] Comment on above: Result Comment: [place] om Glucose Reference Range is dependent on time and content of last meal. Glucose of more than 200 mg/dL in a nonstressed, ambulatory subject supports the diagnosis of Diabetes Mellitus. Performed By: #### G LULS ####Point of Care testing, Glucose [Mass/Vol] 137 mg/dL Normal [facility] Comment on above: Result Comment: [place] om Glucose Reference Range is dependent on time and content of last meal. Glucose of more than 200 mg/dL in a nonstressed, ambulatory subject supports the diagnosis of Diabetes Mellitus.PERFORMED BY:[address] [place], [place] [phone] MEDICAL MAJOR LARSON M.D. Performed By: #### G LULS ####Point of Care testing, Glucose Poct Glucometerson 0 07-11-2023 Glucose [Mass/Vol] 275 mg/dL Normal [facility] Comment on above: Result Comment: [place] om Glucose Reference Range is dependent on time and content of last meal. Glucose of more than 200 mg/dL in a nonstressed, ambulatory subject supports the diagnosis of Diabetes Mellitus.PERFORMED BY:[place] [address] [place], [place] [phone] MEDICAL MAJOR LARSON M.D. Performed By: #### G LULS ####Point of Care testing, Glucose [Mass/Vol] 146 mg/dL Normal [facility] Comment on above: Result Comment: [place] om Glucose Reference Range is dependent on time and content of last meal. Glucose of more than 200 mg/dL in a nonstressed, ambulatory subject supports the diagnosis of Diabetes Mellitus.PERFORMED BY:[place] [address] [place] [phone] MEDICAL DIRECTORRAMEZ LARSON M.D. Performed By: #### G LULS ####Point of Care testing, Commemt1 Glu2: Cleaned Meter Normal [facility] Comment on above: Result Comment: PERF ORMED BY:[address] [place], [place] [phone] MEDICAL DIRECTORRAMEZ LARSON M.D. Performed By: #### G LULS ####Point of Care testing, Glucose [Mass/Vol] 295 mg/dL Normal [facility] Comment on above: Result Comment: [place] om Glucose Reference Range is dependent on time and content of last meal. Glucose of more than 200 mg/dL in a nonstressed, ambulatory subject supports the diagnosis of Diabetes Mellitus. Performed By: #### G LULS ####Point of Care testing, Glucose [Mass/Vol] 165 mg/dL Normal [facility] Comment on above: Result Comment: [place] om Glucose Reference Range is dependent on time and content of last meal. Glucose of more than 200 mg/dL in a nonstressed, ambulatory subject supports the diagnosis of Diabetes Mellitus.PERFORMED BY:[place] [address] [place], [place] [phone] MEDICAL DIRECTORRAMEZ LARSON M.D. Performed By: #### G LULS ####Point of Care testing, Glucose Poct Glucometerson 0 07-10-2023 Commemt1 Glu2: Cleaned Meter Normal [facility] Comment on above: Result Comment: PERF ORMED BY:[place] [address] [place] [place], [place] [phone] MEDICAL DIRECTORRAMEZ LARSON M.D. Performed By: #### G LULS ####Point of Care testing, Glucose [Mass/Vol] 258 mg/dL Normal [facility] Comment on above: Result Comment: [place] om Glucose Reference Range is dependent on time and content of last meal. Glucose of more than 200 mg/dL in a nonstressed, ambulatory subject supports the diagnosis of Diabetes Mellitus. Performed By: #### G LULS ####Point of Care testing, Glucose [Mass/Vol] 212 mg/dL Normal [facility] Comment on above: Result Comment: [place] om Glucose Reference Range is dependent on time and content of last meal. Glucose of more than 200 mg/dL in a nonstressed, ambulatory subject supports the diagnosis of Diabetes Mellitus.PERFORMED BY:[address] [place], [place] [phone] MEDICAL DIRECTORRAMEZ LARSON M.D. Performed By: #### G LULS ####Point of Care testing, Commemt1 Normal [facility] Comment on above: Result Comment: Glu2 : WILL NOTIFY DR/RN Performed By: #### G LULS ####Point of Care testing, Commemt2 Cleaned Meter Normal [facility] Comment on above: Result Comment: PERF ORMED BY:[address] [place], [place] [phone] MEDICAL MAJOR LARSON M.D. Performed By: #### G LULS ####Point of Care testing, Glucose [Mass/Vol] 191 mg/dL Normal [facility] Comment on above: Result Comment: [place] om Glucose Reference Range is dependent on time and content of last meal. Glucose of more than 200 mg/dL in a nonstressed, ambulatory subject supports the diagnosis of Diabetes Mellitus. Performed By: #### G LULS ####Point of Care testing, Commemt1 Glu2: Cleaned Meter Normal [facility] Comment on above: Result Comment: PERF ORMED BY:[address] [place], [place] [phone] MEDICAL MAJOR LARSON M.D. Performed By: #### G LULS ####Point of Care testing, Glucose [Mass/Vol] 119 mg/dL Normal [facility] Comment on above: Result Comment: [place] Glucose Reference Range is dependent on time and content of last meal. Glucose of more than 200 mg/dL in a nonstressed, ambulatory subject supports the diagnosis of Diabetes Mellitus. Performed By: #### G DAVID ####Point of Care testing, No Panel InformationOrdered By: Quintin Johnson on 07-10-2023 Bedside Glucose #2 Comment Cleaned meter [facility] Cleaned meter [facility] Alanine aminotransferase [En zymatic activity/volume] in Serum or PlasmaOrdered By: Quintin Johnson on 07-09-2023 ALT [Catalytic activity/Vol] 3 U/L Low 7-52 [facility] Comment on above: Performed By: #### C EVELYN FERNANDEZ, CMP ####[place] [address] Alkaline phosphatase [Enzyma tic activity/volume] in Serum or PlasmaOrdered By: Quintin Johnson on 07-09-2023 ALP [Catalytic activity/Vol] 155 U/L High 34-104 [facility] Comment on above: Performed By: #### C EVELYN FERNANDEZ, CMP ####[address] Aspartate aminotransferase [ Enzymatic activity/volume] in Serum or PlasmaOrdered By: Quintin Johnson on 07-09-2023 AST [Catalytic activity/Vol] 19 U/L 13-39 [facility] Comment on above: Performed By: #### C EVELYN FERNANDEZ CMP ####[address] Bilirubin.total [Mass/volume ] in Serum or PlasmaOrdered By: Quintin Johnson on 07-09-2023 Bilirubin [Mass/Vol] 0.3 mg/dL 0.3-1.0 [facility] Comment on above: Performed By: #### C EVELYN FERNANDEZ, CMP ####[address] Complete Blood Count Auto Di ffon 07-09-2023 Basophils (Bld) [#/Vol] 0.0 10*3/uL Normal 0.0-0.2 [facility] Comment on above: Result Comment: PERF ORMED BY:[address] [place], [place] [phone] MEDICAL DIRECTORRAMEZ LARSON M.D. Performed By: #### C BC, PAB, CMP ####[place] [phone] [facility] Basophils/100 WBC (Bld) 0.3 % Normal . T abimael [facility] Comment on above: Performed By: #### C BC, PAB, CMP ####[address] Eosinophils (Bld) [#/Vol] 0.2 10*3/uL Normal 0.0-0.45 [facility] Comment on above: Performed By: #### C BC, PAB, CMP ####[place] [id number] [facility] Eosinophils/100 WBC (Bld) 2.4 % Normal . [facility] Comment on above: Performed By: #### C BC, PAB, CMP ####[place] [id number] [facility] Erythrocyte distribution width (RBC) [Ratio] 17.4 % High 11.9-15.3 [facility] Comment on above: Performed By: #### C BC, PAB, CMP ####[place] [id number] [facility] Hematocrit (Bld) [Volume fraction] 32.8 % Low 34.0-46.4 [facility] Comment on above: Performed By: #### C BC, PAB, CMP ####[place] [id number] [facility] Hemoglobin (Bld) [Mass/Vol] 10.4 g/dL Low 11.8-15.4 [facility] Comment on above: Performed By: #### C BC, PAB, CMP ####[place] [id number] [facility] Lymphocytes (Bld) [#/Vol] 1.6 10*3/uL Normal 1.00-4.8 [facility] Comment on above: Performed By: #### C BC, PAB, CMP ####[address] Lymphocytes/100 WBC (Bld) 15.7 % Normal . [facility] Comment on above: Performed By: #### C BC, PAB, CMP ####[address] MCH (RBC) [Entitic mass] 29.1 pg Normal 24.7-34.3 [facility] Comment on above: Performed By: #### C BC, PAB, CMP ####[address] MCV (RBC) [Entitic vol] 91.6 fL Normal 80-100 [facility] Comment on above: Performed By: #### C BC, PAB, CMP ####[address] Mean Corpuscular HGB Conc 31.8 g/dL Low 32.0-35.0 [facility] Comment on above: Performed By: #### C BC, PAB, CMP ####[address] Monocytes (Bld) [#/Vol] 0.9 10*3/uL High 0.0-0.8 [facility] Comment on above: Performed By: #### C BC, PAB, CMP ####[address] Monocytes/100 WBC (Bld) 9.4 % Normal . [facility] Comment on above: Performed By: #### C BC, PAB, CMP ####[address] Neutrophils (Bld) [#/Vol] 7.3 10*3/uL Normal 1.8-7.7 [facility] Comment on above: Performed By: #### C BC, PAB, CMP ####[address] Neutrophils/100 WBC (Bld) 72.2 % Normal . [facility] Comment on above: Performed By: #### C EVELYN FERNANDEZ, CMP ####[address] NRBC% 0.0 /100{WBC} Normal 0-0.5 [facility] Comment on above: Performed By: #### C BC PAB, CMP ####[address] Platelet mean volume (Bld) [Entitic vol] 8.4 fL Normal 6.3-10.7 [facility] Comment on above: Performed By: #### C EVELYN FERNANDEZ, CMP ####[address] Platelets (Bld) [#/Vol] 239 10*3/uL Normal 150-450 [facility] Comment on above: Performed By: #### C EVELYN FERNANDEZ, CMP ####[address] RBC (Bld) [#/Vol] 3.58 10*6/uL Low 3.60-5.00 [facility] Comment on above: Performed By: #### C EVELYN FERNANDEZ, CMP ####[address] WBC (Bld) [#/Vol] 10.1 10*3/uL Normal 3.8-11.6 [facility] Comment on above: Performed By: #### C EVELYN FERNANDEZ, CMP ####[address] Comprehensive Metabolic Pane eliseo 07-09-2023 Albumin [Mass/Vol] 3.0 g/dL Low 3.5-5.7 [facility] Comment on above: Performed By: #### C BC PAB, CMP ####[address] Anion gap [Moles/Vol] 17.1 mmol/L High 6.0-15.0 Th e [facility] Comment on above: Performed By: #### C BC, PAB, CMP ####[facility] [place] [address] [facility] Calcium [Mass/Vol] 8.7 mg/dL Normal 8.6-10.3 [facility] Comment on above: Performed By: #### C BC, PAB, CMP ####[place] [id number] [facility] Chloride [Moles/Vol] 95 mmol/L Low 98-107 [facility] Comment on above: Performed By: #### C BC, PAB, CMP ####[place] [phone] [facility] CO2 [Moles/Vol] 29.1 mmol/L Normal 21.0-31.0 [facility] Comment on above: Performed By: #### C REBECCA, PAB, CMP ####[place] [phone] [facility] Creatinine [Mass/Vol] 4.05 mg/dL Significan t change up 0.60-1.20 [facility] Comment on above: Performed By: #### C REBECCA, PAB, CMP ####[place] [phone] [place] Creatinine Clr Calc Pharmacy 11.09 Normal [facility] Comment on above: Performed By: #### C REBECCA, PAB, CMP ####[place] [phone] [place] GFR/1.73 sq M.predicted MDRD (S/P/Bld) [Vol rate/Area] 10.899 mL/min/{1.73_m2} Normal [facility] Comment on above: Performed By: #### C BC, PAB, CMP ####[place] [id number] [facility] Glucose [Mass/Vol] 186 mg/dL High 70-100 [facility] Comment on above: Result Comment: [place] Glucose Reference Range is dependent on time and content of last meal. Glucose of more than 200 mg/dL in a nonstressed, ambulatory subject supports the diagnosis of Diabetes Mellitus. ADA recommended reference range Performed By: #### C BC, PAB, CMP ####[facility] [place] [address] [facility] Potassium [Moles/Vol] 4.2 mmol/L Normal 3.5-5.1 [facility] Comment on above: Performed By: #### C EVELYN FERNANDEZ, CMP ####[facility] [place] [address] [facility] Sodium [Moles/Vol] 137 mmol/L Normal 136-145 [facility] Comment on above: Performed By: #### C EVELYN FERNANDEZ, CMP ####[facility] [place] [address] [facility] Urea nitrogen [Mass/Vol] 45 mg/dL High 7-25 [facility] Comment on above: Performed By: #### C EVELYN FERNANDEZ, CMP ####[facility] [place] [address] [facility] Glucose Poct Glucometerson 0 07-09-2023 Commemt1 Glu2: Cleaned Meter Normal [facility] Comment on above: Result Comment: PERF ORMED BY:[place] [address] [place], [place] [phone] MEDICAL DIRECTORRAMEZ LARSON M.D. Performed By: #### G LULS ####Point of Care testing, Glucose [Mass/Vol] 234 mg/dL Normal [facility] Comment on above: Result Comment: [place] Glucose Reference Range is dependent on time and content of last meal. Glucose of more than 200 mg/dL in a nonstressed, ambulatory subject supports the diagnosis of Diabetes Mellitus. Performed By: #### G LULS ####Point of Care testing, Glucose [Mass/Vol] 153 mg/dL Normal [facility] Comment on above: Result Comment: [place] om Glucose Reference Range is dependent on time and content of last meal. Glucose of more than 200 mg/dL in a nonstressed, ambulatory subject supports the diagnosis of Diabetes Mellitus.PERFORMED BY:[place] [address] [place], [place] [phone] MEDICAL DIRECTORRAMEZ LARSON M.D. Performed By: #### G LULS ####Point of Care testing, Glucose [Mass/Vol] 282 mg/dL Normal [facility] Comment on above: Result Comment: [facility] Glucose Reference Range is dependent on time and content of last meal. Glucose of more than 200 mg/dL in a nonstressed, ambulatory subject supports the diagnosis of Diabetes Mellitus.PERFORMED BY:[place] [address] [place], [place] [phone] MEDICAL MAJOR LARSON M.D. Performed By: #### G LULS ####Point of Care testing, Glucose [Mass/Vol] 169 mg/dL Normal [facility] Comment on above: Result Comment: [facility] Glucose Reference Range is dependent on time and content of last meal. Glucose of more than 200 mg/dL in a nonstressed, ambulatory subject supports the diagnosis of Diabetes Mellitus.PERFORMED BY:[address] [place], [place] [phone] MEDICAL MAJOR LARSON M.D. Performed By: #### G LULS ####Point of Care testing, Prealbumin [Mass/volume] in Serum or PlasmaOrdered By: Quintin Johnson on 07-09-2023 Prealbumin [Mass/Vol] 20.4 mg/dL 17.0-34.0 [facility] Comment on above: Result Comment: PERF ORMED BY:[address] [place], [place] [phone] MEDICAL MAJOR LARSON M.D. Performed By: #### C BC, PAB, CMP ####[address] [address] [facility] Protein [Mass/volume] in Ser um or PlasmaOrdered By: Quintin Johnson on 07-09-2023 Protein [Mass/Vol] 5.5 g/dL Low 6.4-8.9 [facility] Comment on above: Performed By: #### C BC, PAB, CMP ####[address] [address] [facility] Serum globulin measurement b y calculation (mass/volume)Ordered By: Quintin Johnson on 07-09-2023 Globulin (S) [Mass/Vol] 2.5 g/dL F [facility] Comment on above: Performed By: #### C REBECCA, PAB, CMP ####[address] Serum or plasma albumin/glob ulin mass ratioOrdered By: Quintin Johnson on 07-09-2023 Albumin/Globulin [Mass ratio] 1.2 {ratio} [facility] Comment on above: Performed By: #### C BC, PAB, CMP ####[address] Automated basophil %Ordered By: Cesario Venessa on 07-08-2023 Basophils/100 WBC (Bld) 0.2 % Normal . F [facility] Comment on above: Performed By: #### C REBECCA, BMP ####[address] Automated basophil countOrde red By: Cesario Venessa on 07-08-2023 Basophils (Bld) [#/Vol] 0.0 10*3/uL Normal 0.0-0.2 [facility] Comment on above: Result Comment: PERF ORMED BY:[address] [place], [place] [phone] MEDICAL DIRECTORRAMEZ LARSON M.D. Performed By: #### C REBECCA, BMP ####[address] Automated blood monocyte cou ntOrdered By: Cesario Venessa on 07-08-2023 Monocytes (Bld) [#/Vol] 1.0 10*3/uL High 0.0-0.8 [facility] Comment on above: Performed By: #### C BC, BMP ####[address] Automated eosinophil %Ordere d By: Cesario Venessa on 07-08-2023 Eosinophils/100 WBC (Bld) 1.3 % Normal . [facility] Comment on above: Performed By: #### C BC, BMP ####[place] [id number] [facility] Automated eosinophil countOr dered By: Cesario Clifford on 07-08-2023 Eosinophils (Bld) [#/Vol] 0.1 10*3/uL Normal 0.0-0.45 [facility] Comment on above: Performed By: #### C BC, BMP ####[address] Automated monocyte %Ordered By: Cesario Clifford on 07-08-2023 Monocytes/100 WBC (Bld) 10.0 % Normal . F [facility] Comment on above: Performed By: #### C REBECCA, BMP ####[address] Automated neutrophil %Ordere d By: Cesario Clifford on 07-08-2023 Neutrophils/100 WBC (Bld) 75.2 % Normal . [facility] Comment on above: Performed By: #### C REBECCA, BMP ####[place] [id number] [facility] Basic Metabolic Panelon 06-11 Creatinine Clr Calc Pharmacy 15.45 Normal [facility] Comment on above: Result Comment: PERF ORMED BY:[address] [place], [place] [phone] MEDICAL DIRECTORRAMEZ LARSON M.D. Performed By: #### C REBECCA, BMP ####[place] [id number] [facility] GFR/1.73 sq M.predicted MDRD (S/P/Bld) [Vol rate/Area] 15.877 mL/min/{1.73_m2} Normal [facility] Comment on above: Performed By: #### C BC, BMP ####[place] [id number] [facility] Calcium [Mass/volume] in Ser um or PlasmaOrdered By: Cesario Clifford on 07-08-2023 Calcium [Mass/Vol] 8.6 mg/dL Normal 8.6-10.3 [facility] Comment on above: Performed By: #### C REBECCA, BMP ####[place] [address] [place] [id number] [facility] Capillary blood glucose eugenie urement by glucometer (mass/volume)Ordered By: Lexi Carlson on 07-08-2023 Glucose [Mass/Vol] 223 mg/dL Normal [facility] Comment on above: Random Glucose Refer ence Range is dependent on time and content of last meal. Glucose of more than 200 mg/dL in a nonstressed, ambulatory subject supports the diagnosis of Diabetes Mellitus. Result Comment: [place] om Glucose Reference Range is dependent on time and content of last meal. Glucose of more than 200 mg/dL in a nonstressed, ambulatory subject supports the diagnosis of Diabetes Mellitus.PERFORMED BY:[place] [address] [place], [place] [phone] MEDICAL DIRECTORRAMEZ LARSON M.D. Performed By: #### G DAVID ####Point of Care testing, Carbon dioxide, total [Moles /volume] in Serum or PlasmaOrdered By: Cesario Clifford on 07-08-2023 CO2 [Moles/Vol] 32.0 mmol/L High 21.0-31.0 [facility] Comment on above: Performed By: #### C REBECCA, BMP ####[place] [id number] [facility] Chloride [Moles/volume] in S steffanie or PlasmaOrdered By: Cesario Clifford on 07-08-2023 Chloride [Moles/Vol] 95 mmol/L Low 98-107 [facility] Comment on above: Performed By: #### C REBECCA, BMP ####[place] [id number] [facility] Complete Blood Count Auto Di ffon 07-08-2023 Mean Corpuscular HGB Conc 31.5 g/dL Low 32.0-35.0 [facility] Comment on above: Performed By: #### C REBECCA, BMP ####[place] [id number] [facility] NRBC% 0.1 /100{WBC} Normal 0-0.5 [facility] Comment on above: Performed By: #### C REBECCA, BMP ####[place] [id number] [facility] Creatinine [Mass/volume] in Serum or PlasmaOrdered By: Cesario Clifford on 07-08-2023 Creatinine [Mass/Vol] 2.96 mg/dL Significan t change up 0.60-1.20 [facility] Comment on above: Delta: 2.11 on 07/06-1601 Performed By: #### C REBECCA, BMP ####[place] [id number] [facility] Erythrocyte distribution wid th [Ratio] by Automated countOrdered By: Cesario Clifford on 07-08-2023 Erythrocyte distribution width (RBC) [Ratio] 17.9 % High 11.9-15.3 [facility] Comment on above: Performed By: #### C REBECCA, BMP ####[place] [id number] [facility] Erythrocytes [#/volume] in B lood by Automated countOrdered By: Cesario Clifford on 07-08-2023 RBC (Bld) [#/Vol] 3.52 10*6/uL Low 3.60-5.00 [facility] Comment on above: Performed By: #### C REBECCA, BMP ####[place] [id number] [facility] Glucose Poct Glucometerson 0 07-08-2023 Glucose [Mass/Vol] 214 mg/dL Normal [facility] Comment on above: Result Comment: [place] Glucose Reference Range is dependent on time and content of last meal. Glucose of more than 200 mg/dL in a nonstressed, ambulatory subject supports the diagnosis of Diabetes Mellitus.PERFORMED BY:[address] [place], [place] [phone] MEDICAL DIRECTORRAMEZ LARSON M.D. Performed By: #### G LULS ####Point of Care testing, Commemt1 Glu2: Cleaned Meter Normal [facility] Comment on above: Result Comment: PERF ORMED BY:[address] [place], [place] [phone] MEDICAL DIRECTORRAMEZ LARSON M.D. Performed By: #### G LULS ####Point of Care testing, Glucose [Mass/Vol] 125 mg/dL Normal [facility] Comment on above: Result Comment: [place] om Glucose Reference Range is dependent on time and content of last meal. Glucose of more than 200 mg/dL in a nonstressed, ambulatory subject supports the diagnosis of Diabetes Mellitus. Performed By: #### G LULS ####Point of Care testing, Commemt1 Glu2: Cleaned Meter Normal [facility] Comment on above: Result Comment: PERF ORMED BY:[address] [place], [place] [phone] MEDICAL DIRECTORRAMEZ LARSON M.D. Performed By: #### G LULS ####Point of Care testing, Glucose [Mass/Vol] 207 mg/dL Normal [facility] Comment on above: Result Comment: [place] om Glucose Reference Range is dependent on time and content of last meal. Glucose of more than 200 mg/dL in a nonstressed, ambulatory subject supports the diagnosis of Diabetes Mellitus. Performed By: #### G LULS ####Point of Care testing, Glucose [Mass/volume] in Ser um or PlasmaOrdered By: eCsario Clifford on 07-08-2023 Glucose [Mass/Vol] 217 mg/dL High 70-100 [facility] Comment on above: ADA recommended refe rence rangeRandom Glucose Reference Range is dependent on time and content of last meal. Glucose of more than 200 mg/dL in a nonstressed, ambulatory subject supports the diagnosis of Diabetes Mellitus. Result Comment: [place] om Glucose Reference Range is dependent on time and content of last meal. Glucose of more than 200 mg/dL in a nonstressed, ambulatory subject supports the diagnosis of Diabetes Mellitus. ADA recommended reference range Performed By: #### C BC, BMP ####[facility] [place] [address] [place] Hematocrit [Volume Fraction] of Blood by Automated countOrdered By: Cesario Venessa on 07-08-2023 Hematocrit (Bld) [Volume fraction] 32.0 % Low 34.0-46.4 [facility] Comment on above: Performed By: #### C REBECCA, BMP ####[address] Hemoglobin [Mass/volume] in BloodOrdered By: Cesario Venessa on 07-08-2023 Hemoglobin (Bld) [Mass/Vol] 10.1 g/dL Low 11.8-15.4 [facility] Comment on above: Performed By: #### C REBECCA, BMP ####[address] Leukocytes [#/volume] correc tr for nucleated erythrocytes in Blood by Automated counOrdered By: Cesario Venessa on 07-08-2023 WBC corrected for nucl RBC Auto (Bld) [#/Vol] 9.7 10*3/uL 3.8-11.6 [facility] Leukocytes [#/volume] in Blo od by Automated countOrdered By: Cesario Venessa on 07-08-2023 WBC (Bld) [#/Vol] 9.7 10*3/uL Normal 3.8-11.6 [facility] Comment on above: Performed By: #### C REBECCA, BMP ####[address] Lymphocytes [#/volume] in Bl ood by Automated countOrdered By: Cesario Venessa on 07-08-2023 Lymphocytes (Bld) [#/Vol] 1.3 10*3/uL Normal 1.00-4.8 [facility] Comment on above: Performed By: #### C REBECCA, BMP ####[address] Lymphocytes/100 leukocytes i n Blood by Automated countOrdered By: Cesario Venessa on 07-08-2023 Lymphocytes/100 WBC (Bld) 13.3 % Normal . [facility] Comment on above: Performed By: #### C REBECCA, BMP ####[address] MCH [Entitic mass] by Automa tr countOrdered By: Cesario Clifford on 07-08-2023 MCH (RBC) [Entitic mass] 28.6 pg Normal 24.7-34.3 [facility] Comment on above: Performed By: #### C REBECCA, BMP ####[address] MCHC Auto (RBC) [Mass/Vol]Or dered By: Cesario Clifford on 07-08-2023 MCHC (RBC) [Mass/Vol] 31.5 g/dL Low 32.0-35.0 [facility] MCV [Entitic volume] by Auto mated countOrdered By: Cesario Clifford on 07-08-2023 MCV (RBC) [Entitic vol] 90.8 fL Normal 80-[address] [facility] Comment on above: Performed By: #### C REBECCA, BMP ####[address] Neutrophils [#/volume] in Bl ood by Automated countOrdered By: Cesario Clifford on 07-08-2023 Neutrophils (Bld) [#/Vol] 7.3 10*3/uL Normal 1.8-7.7 [facility] Comment on above: Performed By: #### C REBECCA, BMP ####[address] No Panel InformationOrdered By: Lexi Carlson on 07-08-2023 Bedside Glucose Comment Glu2: cleaned meter [facility] Glu2: cleaned meter [facility] No Panel InformationOrdered By: Cesario Clifford on 07-08-2023 Estimated GFR (CKD-EPI) 15.877 mL/Min [facility] Creatinine Clearance (Chem 15.45 [facility] 15.877 mL/Min [facility] 15.45 [facility] Nucleated erythrocytes [Pres ence] in Blood by Automated countOrdered By: Cesario Clifford on 07-08-2023 Nucleated RBC Auto Ql (Bld) 0.1 /100{WBC} 0-0.5 [facility] Platelet mean volume [Entiti c volume] in Blood by Automated countOrdered By: Cesario Venessa on 07-08-2023 Platelet mean volume (Bld) [Entitic vol] 8.4 fL Normal 6.3-10.7 [facility] Comment on above: Performed By: #### C BC, BMP ####[place] [id number] [facility] Platelets [#/volume] in Bloo d by Automated countOrdered By: Cesario Clifford on 07-08-2023 Platelets (Bld) [#/Vol] 222 10*3/uL Normal 150-450 [facility] Comment on above: Performed By: #### C REBECCA, BMP ####[place] [id number] [facility] Potassium [Moles/volume] in Serum or PlasmaOrdered By: Cesarioatilio Clifford on 07-08-2023 Potassium [Moles/Vol] 4.0 mmol/L Normal 3.5-5.1 [facility] Comment on above: Performed By: #### C REBECCA, BMP ####[place] [id number] [facility] Serum or plasma anion gap de terminationOrdered By: Cesario Clifford on 07-08-2023 Anion gap [Moles/Vol] 15.0 mmol/L Normal 6.0-15.0 [facility] Comment on above: Performed By: #### C BC, BMP ####[address] [address] [facility] Sodium [Moles/volume] in Ser um or PlasmaOrdered By: Cesario Venessa on 07-08-2023 Sodium [Moles/Vol] 138 mmol/L Normal 136-145 [facility] Comment on above: Performed By: #### C BC, BMP ####[place] [id number] [facility] Urea nitrogen [Mass/volume] in Serum or PlasmaOrdered By: Cesario Clifford on 07-08-2023 Urea nitrogen [Mass/Vol] 28 mg/dL High 7-25 [facility] Comment on above: Performed By: #### C BC, BMP ####[place] [id number] [facility] Alanine aminotransferase [En zymatic activity/volume] in Serum or PlasmaOrdered By: Cesario Clifford on 07-07-2023 ALT [Catalytic activity/Vol] 3 U/L Low 7-52 [facility] Comment on above: Performed By: #### R ENAL, CMP, FE PRO, MG ####[address] Albumin [Mass/volume] in Ser um or Plasma by Bromocresol green (BCG) dye binding methoOrdered By: Cesarioatilio Clifford on 07-07-2023 Albumin BCG dye [Mass/Vol] 3.1 g/dL Low 3.5-5.7 [facility] Alkaline phosphatase [Enzyma tic activity/volume] in Serum or PlasmaOrdered By: Cesarioatilio Clifford on 07-07-2023 ALP [Catalytic activity/Vol] 148 U/L High 34-104 [facility] Comment on above: Performed By: #### R ENAL, CMP, FE PRO, MG ####[place] [id number] [facility] Aspartate aminotransferase [ Enzymatic activity/volume] in Serum or PlasmaOrdered By: Cesario Clifford on 07-07-2023 AST [Catalytic activity/Vol] 18 U/L Normal 13-39 [facility] Comment on above: Performed By: #### R ENAL, CMP, FE PRO, MG ####[place] [id number] [facility] Basic Metabolic Panelon 06-11 Anion gap [Moles/Vol] 11.5 mmol/L Normal 6.0-15.0 [facility] Comment on above: Performed By: #### M G, BMP ####[place] [id number] [place] Calcium [Mass/Vol] 8.6 mg/dL Normal 8.6-10.3 [facility] Comment on above: Performed By: #### Braeden Powell, BMP ####[address] Chloride [Moles/Vol] 95 mmol/L Low 98-107 [facility] Comment on above: Performed By: #### Braeden Powell, BMP ####[address] CO2 [Moles/Vol] 31.8 mmol/L High 21.0-31.0 [facility] Comment on above: Performed By: #### Braeden Powell, BMP ####[address] Creatinine [Mass/Vol] 2.11 mg/dL Significan t change up 0.60-1.20 [facility] Comment on above: Performed By: #### Braeden Powell, BMP ####[address] Creatinine Clr Calc Pharmacy 21.55 Normal [facility] Comment on above: Performed By: #### Braeden Powell, BMP ####[address] GFR/1.73 sq M.predicted MDRD (S/P/Bld) [Vol rate/Area] 23.833 mL/min/{1.73_m2} Normal [facility] Comment on above: Performed By: #### Braeden Powell, BMP ####[address] Glucose [Mass/Vol] 184 mg/dL High 70-100 [facility] Comment on above: Result Comment: [place] Glucose Reference Range is dependent on time and content of last meal. Glucose of more than 200 mg/dL in a nonstressed, ambulatory subject supports the diagnosis of Diabetes Mellitus. ADA recommended reference range Performed By: #### M G, BMP ####[address] Potassium [Moles/Vol] 3.3 mmol/L Low 3.5-5.1 [facility] Comment on above: Performed By: #### M G, BMP ####[address] Sodium [Moles/Vol] 135 mmol/L Low 136-145 [facility] Comment on above: Performed By: #### M G, BMP ####[address] Urea nitrogen [Mass/Vol] 15 mg/dL Significant change down 09-03 [facility] Comment on above: Performed By: #### M G, BMP ####[address] Bilirubin.total [Mass/volume ] in Serum or PlasmaOrdered By: Cesario Clifford on 07-07-2023 Bilirubin [Mass/Vol] 0.3 mg/dL Normal 0.3-1.0 [facility] Comment on above: Performed By: #### R ENAL, CMP, FE PRO, MG ####[address] Complete Blood Count Auto Di ffon 07-07-2023 Basophils (Bld) [#/Vol] 0.0 10*3/uL Normal 0.0-0.2 [facility] Comment on above: Result Comment: PERF ORMED BY:[address] [place], [place] [phone] MEDICAL DIRECTORRAMEZ LARSON M.D. Performed By: #### C BC ####[address] Basophils/100 WBC (Bld) 0.1 % Normal . [facility] Comment on above: Performed By: #### C BC ####[address] Eosinophils (Bld) [#/Vol] 0.0 10*3/uL Normal 0.0-0.45 [facility] Comment on above: Performed By: #### C BC ####[address] Eosinophils/100 WBC (Bld) 0.4 % Normal . [facility] Comment on above: Performed By: #### C BC ####[address] Erythrocyte distribution width (RBC) [Ratio] 18.0 % High 11.9-15.3 [facility] Comment on above: Performed By: #### C BC ####[address] Hematocrit (Bld) [Volume fraction] 32.2 % Low 34.0-46.4 [facility] Comment on above: Performed By: #### C BC ####[address] Hemoglobin (Bld) [Mass/Vol] 10.2 g/dL Low 11.8-15.4 [facility] Comment on above: Performed By: #### C BC ####[address] Lymphocytes (Bld) [#/Vol] 1.0 10*3/uL Normal 1.00-4.8 [facility] Comment on above: Performed By: #### C BC ####[address] Lymphocytes/100 WBC (Bld) 10.4 % Normal . [facility] Comment on above: Performed By: #### C BC ####[address] MCH (RBC) [Entitic mass] 28.9 pg Normal 24.7-34.3 [facility] Comment on above: Performed By: #### C BC ####[address] MCV (RBC) [Entitic vol] 90.8 fL Normal 80-100 [facility] Comment on above: Performed By: #### C BC ####[address] Mean Corpuscular HGB Conc 31.8 g/dL Low 32.0-35.0 [facility] Comment on above: Performed By: #### C BC ####[address] Monocytes (Bld) [#/Vol] 0.9 10*3/uL High 0.0-0.8 [facility] Comment on above: Performed By: #### C BC ####[address] Monocytes/100 WBC (Bld) 10.0 % Normal . [facility] Comment on above: Performed By: #### C BC ####[address] Neutrophils (Bld) [#/Vol] 7.3 10*3/uL Normal 1.8-7.7 [facility] Comment on above: Performed By: #### C BC ####[address] Neutrophils/100 WBC (Bld) 79.1 % Normal . [facility] Comment on above: Performed By: #### C BC ####[address] NRBC% 0.0 /100{WBC} Normal 0-0.5 [facility] Comment on above: Performed By: #### C BC ####[address] Platelet mean volume (Bld) [Entitic vol] 8.2 fL Normal 6.3-10.7 [facility] Comment on above: Performed By: #### C BC ####[address] Platelets (Bld) [#/Vol] 216 10*3/uL Normal 150-450 [facility] Comment on above: Performed By: #### C BC ####[address] RBC (Bld) [#/Vol] 3.54 10*6/uL Low 3.60-5.00 [facility] Comment on above: Performed By: #### C BC ####[address] WBC (Bld) [#/Vol] 9.3 10*3/uL Normal 3.8-11.6 [facility] Comment on above: Performed By: #### C BC ####[address] Comprehensive Metabolic Pane eliseo 07-07-2023 Albumin [Mass/Vol] 3.1 g/dL Low 3.5-5.7 [facility] Comment on above: Performed By: #### R ENAL, CMP, FE PRO, MG ####[address] Anion gap [Moles/Vol] 18.3 mmol/L High 6.0-15.0 [facility] Comment on above: Performed By: #### R ENAL, CMP, FE PRO, MG ####[address] Calcium [Mass/Vol] 8.7 mg/dL Normal 8.6-10.3 [facility] Comment on above: Performed By: #### R ENAL, CMP, FE PRO, MG ####[address] Chloride [Moles/Vol] 94 mmol/L Low 98-107 [facility] Comment on above: Performed By: #### R ENAL, CMP, FE PRO, MG ####[address] CO2 [Moles/Vol] 27.0 mmol/L Normal 21.0-31.0 [facility] Comment on above: Performed By: #### R ENAL, CMP, FE PRO, MG ####[address] Creatinine [Mass/Vol] 4.38 mg/dL Significan t change up 0.60-1.20 [facility] Comment on above: Performed By: #### R ENAL, CMP, FE PRO, MG ####[place] [id number] [place] [id number] [facility] Creatinine Clr Calc Pharmacy 10.38 Normal [facility] Comment on above: Performed By: #### R ENAL, CMP, FE PRO, MG ####[place] [id number] [place] [id number] [place] GFR/1.73 sq M.predicted MDRD (S/P/Bld) [Vol rate/Area] 9.921 mL/min/{1.73_m2} Normal [facility] Comment on above: Performed By: #### R ENAL, CMP, FE PRO, MG ####[place] [address] Glucose [Mass/Vol] 192 mg/dL High 70-100 [facility] Comment on above: Result Comment: [place] Glucose Reference Range is dependent on time and content of last meal. Glucose of more than 200 mg/dL in a nonstressed, ambulatory subject supports the diagnosis of Diabetes Mellitus. ADA recommended reference range Performed By: #### R ENAL, CMP, FE PRO, MG ####[address] Potassium [Moles/Vol] 4.3 mmol/L Normal 3.5-5.1 [facility] Comment on above: Performed By: #### R ENAL, CMP, FE PRO, MG ####[address] Sodium [Moles/Vol] 135 mmol/L Low 136-145 [facility] Comment on above: Performed By: #### R ENAL, CMP, FE PRO, MG ####[place] [address] [place] [id number] [facility] Urea nitrogen [Mass/Vol] 48 mg/dL High 7-25 [facility] Comment on above: Performed By: #### R ENAL, CMP, FE PRO, MG ####[place] [id number] [facility] ECG 12 lead ECGon 07-07-2023 ECG 12 lead ECG Normal [facility] FE PROon 07-07-2023 % Iron Saturation 44.0 % Normal 20-50 [facility] Comment on above: Performed By: #### R ENAL, CMP, FE PRO, MG ####[place] [id number] [facility] Total Iron Binding Capacity 168 ug/dL Low 255-450 [facility] Comment on above: Performed By: #### R ENAL, CMP, FE PRO, MG ####[place] [id number] [facility] Ferritin [Mass/volume] in Se rum or PlasmaOrdered By: Wood Zavala on 07-07-2023 Ferritin [Mass/Vol] 1612.0 ng/mL High 11.0-306.8 [facility] Comment on above: Result Comment: PERF ORMED BY:[address] [place], [place] [phone] MEDICAL DIRECTORRAMEZ LARSON M.D. Performed By: #### R ENAL, CMP, FE PRO, MG ####[place] [id number] [facility] Glucose Poct Glucometerson 0 07-07-2023 Glucose [Mass/Vol] 245 mg/dL Normal [facility] Comment on above: Result Comment: [facility] Glucose Reference Range is dependent on time and content of last meal. Glucose of more than 200 mg/dL in a nonstressed, ambulatory subject supports the diagnosis of Diabetes Mellitus.PERFORMED BY:[place] [address] [place], [place] [phone] MEDICAL MAJOR LARSON M.D. Performed By: #### G LULS ####Point of Care testing, Glucose [Mass/Vol] 178 mg/dL Normal [facility] Comment on above: Result Comment: [facility] Glucose Reference Range is dependent on time and content of last meal. Glucose of more than 200 mg/dL in a nonstressed, ambulatory subject supports the diagnosis of Diabetes Mellitus.PERFORMED BY:[place] [address] [place], [place] [phone] MEDICAL DIRECTORRAMEZ LARSON M.D. Performed By: #### G LULS ####Point of Care testing, Glucose [Mass/Vol] 129 mg/dL Normal [facility] Comment on above: Result Comment: [facility] Glucose Reference Range is dependent on time and content of last meal. Glucose of more than 200 mg/dL in a nonstressed, ambulatory subject supports the diagnosis of Diabetes Mellitus.PERFORMED BY:[address] [place], [place] [phone] MEDICAL DIRECTORRAMEZ LARSON M.D. Performed By: #### G LULS ####Point of Care testing, Glucose [Mass/Vol] 207 mg/dL Normal [facility] Comment on above: Result Comment: [facility] Glucose Reference Range is dependent on time and content of last meal. Glucose of more than 200 mg/dL in a nonstressed, ambulatory subject supports the diagnosis of Diabetes Mellitus.PERFORMED BY:[address] [place], [place] [phone] MEDICAL DIRECTORRAMEZ LARSON M.D. Performed By: #### G LULS ####Point of Care testing, Iron [Mass/volume] in Serum or PlasmaOrdered By: Wood Corderor on 07-07-2023 Iron [Mass/Vol] 74 ug/dL Normal 50-212 [facility] Comment on above: Performed By: #### R ENAL, CMP, FE PRO, MG ####[facility] [place] [address] [facility] Iron binding capacity [Mass/ volume] in Serum or PlasmaOrdered By: Wood Lucas on 07-07-2023 Iron binding capacity [Mass/Vol] 168 ug/dL Low 255-450 [facility] Iron saturation [Mass Fracti on] in Serum or PlasmaOrdered By: Wood Lucas on 07-07-2023 Iron saturation [Mass fraction] 44.0 % 20-50 [facility] Magnesiumon 07-07-2023 Magnesium [Mass/Vol] 2.1 mg/dL Normal 1.9-2.7 [facility] Comment on above: Result Comment: PERF ORMED BY:[place] [address] [place], [place] [phone] MEDICAL DIRECTORRAMEZ LARSON M.D. Performed By: #### R ENAL, CMP, FE PRO, MG ####[address] [address] [facility] Magnesium [Mass/volume] in S steffanie or PlasmaOrdered By: Cesario Clifford on 07-07-2023 Magnesium [Mass/Vol] 1.7 mg/dL Low 1.9-2.7 [facility] Comment on above: Result Comment: PERF ORMED BY:[address] [place], [place] [phone] MEDICAL DIRECTORRAMEZ LARSON M.D. Performed By: #### M G, BMP ####[place] [id number] [facility] Phosphate [Mass/volume] in S steffanie or PlasmaOrdered By: Wood Zavala on 07-07-2023 Phosphate [Mass/Vol] 3.8 mg/dL Normal 2.5-4.5 [facility] Comment on above: Performed By: #### R ENAL, CMP, FE PRO, MG ####[place] [id number] [facility] Protein [Mass/volume] in Ser um or PlasmaOrdered By: Cesario Clifford on 07-07-2023 Protein [Mass/Vol] 5.6 g/dL Low 6.4-8.9 [facility] Comment on above: Performed By: #### R ENAL, CMP, FE PRO, MG ####[place] [id number] [facility] Serum globulin measurement b y calculation (mass/volume)Ordered By: Cesario Clifford on 07-07-2023 Globulin (S) [Mass/Vol] 2.5 g/dL Normal F [facility] Comment on above: Performed By: #### R ENAL, CMP, FE PRO, MG ####[place] [id number] [facility] Serum or plasma albumin/glob ulin mass ratioOrdered By: Cesario Clifford on 07-07-2023 Albumin/Globulin [Mass ratio] 1.2 {ratio} Normal [facility] Comment on above: Performed By: #### R ENAL, CMP, FE PRO, MG ####[place] [address] [place] [phone] [facility] Transferrin [Mass/volume] in Serum or PlasmaOrdered By: Wood Zavala on 07-07-2023 Transferrin [Mass/Vol] 120 mg/dL Low 203-362 [facility] Comment on above: Performed By: #### R ENAL, CMP, FE PRO, MG ####[place] [id number] [facility] Glucose Poct Glucometerson 0 07-06-2023 Glucose [Mass/Vol] 313 mg/dL Normal [facility] Comment on above: Result Comment: [facility] Glucose Reference Range is dependent on time and content of last meal. Glucose of more than 200 mg/dL in a nonstressed, ambulatory subject supports the diagnosis of Diabetes Mellitus.PERFORMED BY:[place] [address] [place], [place] [phone] MEDICAL DIRECTORRAMEZ LARSON M.D. Performed By: #### G LULS ####Point of Care testing, Glucose [Mass/Vol] 249 mg/dL Normal [facility] Comment on above: Result Comment: [facility] Glucose Reference Range is dependent on time and content of last meal. Glucose of more than 200 mg/dL in a nonstressed, ambulatory subject supports the diagnosis of Diabetes Mellitus.PERFORMED BY:[address] [place], [place] [phone] MEDICAL MAJOR LARSON M.D. Performed By: #### G LULS ####Point of Care testing, Glucose [Mass/Vol] 185 mg/dL Normal [facility] Comment on above: Result Comment: [facility] Glucose Reference Range is dependent on time and content of last meal. Glucose of more than 200 mg/dL in a nonstressed, ambulatory subject supports the diagnosis of Diabetes Mellitus.PERFORMED BY:[place] [address] [place], [place] [phone] MEDICAL DIRECTORRAMEZ LARSON M.D. Performed By: #### G DAVID ####Point of Care testing, Renal Function Panelon 07-05 Albumin [Mass/Vol] 3.2 g/dL Low 3.5-5.7 [facility] Comment on above: Performed By: #### R ENAL ####[place] [id number] [facility] Anion gap [Moles/Vol] 14.6 mmol/L Normal 6.0-15.0 [facility] e [facility] Comment on above: Performed By: #### R ENAL ####[place] [id number] [facility] Calcium [Mass/Vol] 8.9 mg/dL Normal 8.6-10.3 [facility] Comment on above: Performed By: #### R ENAL ####[place] [id number] [facility] Chloride [Moles/Vol] 95 mmol/L Low 98-107 [facility] Comment on above: Performed By: #### R ENAL ####[place] [id number] [facility] CO2 [Moles/Vol] 28.2 mmol/L Normal 21.0-31.0 [facility] Comment on above: Performed By: #### R ENAL ####[place] [id number] [facility] Creatinine [Mass/Vol] 3.36 mg/dL Significan t change up 0.60-1.20 [facility] Comment on above: Performed By: #### R ENAL ####[place] [id number] [facility] Creatinine Clr Calc Pharmacy 13.29 Normal [facility] Comment on above: Result Comment: PERF ORMED BY:[place] [address] [place], [place] [phone] MEDICAL DIRECTORRAMEZ LARSON M.D. Performed By: #### R ENAL ####[place] [address] [place] [address] [facility] GFR/1.73 sq M.predicted MDRD (S/P/Bld) [Vol rate/Area] 13.636 mL/min/{1.73_m2} Normal [facility] Comment on above: Performed By: #### R ENAL ####[address] [address] [facility] Glucose [Mass/Vol] 225 mg/dL High 70-100 [facility] Comment on above: Result Comment: [place] Glucose Reference Range is dependent on time and content of last meal. Glucose of more than 200 mg/dL in a nonstressed, ambulatory subject supports the diagnosis of Diabetes Mellitus. ADA recommended reference range Performed By: #### R ENAL ####[address] [address] [facility] Phosphate [Mass/Vol] 4.3 mg/dL Normal 2.5-4.5 [facility] Comment on above: Performed By: #### R ENAL ####[address] [address] [facility] Potassium [Moles/Vol] 3.8 mmol/L Significan t change down 3.5-5.1 [facility] Comment on above: Performed By: #### R ENAL ####[address] [address] [place] Sodium [Moles/Vol] 134 mmol/L Significant change down 136-145 [facility] Comment on above: Performed By: #### R ENAL ####[address] [address] [facility] Urea nitrogen [Mass/Vol] 27 mg/dL High 7-25 [facility] Comment on above: Performed By: #### R ENAL ####[address] [address] [facility] Glucose Poct Glucometerson 0 07-05-2023 Commemt1 Glu2: Cleaned Meter Normal [facility] Comment on above: Result Comment: PERF ORMED BY:[place] [address] [place], [place] [phone] MEDICAL DIRECTORRAMEZ LARSON M.D. Performed By: #### G LULS ####Point of Care testing, Glucose [Mass/Vol] 320 mg/dL Normal [facility] Comment on above: Result Comment: [place] om Glucose Reference Range is dependent on time and content of last meal. Glucose of more than 200 mg/dL in a nonstressed, ambulatory subject supports the diagnosis of Diabetes Mellitus. Performed By: #### G LULS ####Point of Care testing, Glucose [Mass/Vol] 250 mg/dL Normal [facility] Comment on above: Result Comment: [place] om Glucose Reference Range is dependent on time and content of last meal. Glucose of more than 200 mg/dL in a nonstressed, ambulatory subject supports the diagnosis of Diabetes Mellitus.PERFORMED BY:[place] [address] [place], [place] [phone] MEDICAL DIRECTORRAMEZ LARSON M.D. Performed By: #### G LULS ####Point of Care testing, Commemt1 Glu2: Cleaned Meter Normal [facility] Comment on above: Result Comment: PERF ORMED BY:[place] [address] [place], [place] [phone] MEDICAL MAJOR LARSON M.D. Performed By: #### G LULS ####Point of Care testing, Glucose [Mass/Vol] 164 mg/dL Normal [facility] Comment on above: Result Comment: [place] om Glucose Reference Range is dependent on time and content of last meal. Glucose of more than 200 mg/dL in a nonstressed, ambulatory subject supports the diagnosis of Diabetes Mellitus. Performed By: #### G LULS ####Point of Care testing, Glucose [Mass/Vol] 285 mg/dL Normal [facility] Comment on above: Result Comment: [place] om Glucose Reference Range is dependent on time and content of last meal. Glucose of more than 200 mg/dL in a nonstressed, ambulatory subject supports the diagnosis of Diabetes Mellitus.PERFORMED BY:[address], [place] [phone] MEDICAL DIRECTORRAMEZ LARSON M.D. Performed By: #### G DAVID ####Point of Care testing, Renal Function Panelon 07-04 Albumin [Mass/Vol] 3.0 g/dL Low 3.5-5.7 [facility] Comment on above: Performed By: #### R ENAL ####[place] [id number] [facility] Anion gap [Moles/Vol] 19.7 mmol/L High 6.0-15.0 Th e [facility] Comment on above: Performed By: #### R ENAL ####[place] [id number] [facility] Calcium [Mass/Vol] 8.8 mg/dL Normal 8.6-10.3 [facility] Comment on above: Performed By: #### R ENAL ####[place] [id number] [facility] Chloride [Moles/Vol] 92 mmol/L Low 98-107 [facility] Comment on above: Performed By: #### R ENAL ####[place] [id number] [facility] CO2 [Moles/Vol] 21.7 mmol/L Normal 21.0-31.0 [facility] Comment on above: Performed By: #### R ENAL ####[place] [id number] [facility] Creatinine [Mass/Vol] 5.48 mg/dL Significan t change up 0.60-1.20 [facility] Comment on above: Performed By: #### R ENAL ####[place] [id number] [facility] Creatinine Clr Calc Pharmacy 7.54 Normal [facility] Comment on above: Result Comment: PERF ORMED BY:[place] [address] [place] [phone] MEDICAL DIRECTORRAMEZ LARSON M.D. Performed By: #### R ENAL ####[address] [address] [place] GFR/1.73 sq M.predicted MDRD (S/P/Bld) [Vol rate/Area] 7.582 mL/min/{1.73_m2} Normal [facility] Comment on above: Performed By: #### R ENAL ####[place] [id number] [facility] Glucose [Mass/Vol] 239 mg/dL High 70-100 [facility] Comment on above: Result Comment: [facility] Glucose Reference Range is dependent on time and content of last meal. Glucose of more than 200 mg/dL in a nonstressed, ambulatory subject supports the diagnosis of Diabetes Mellitus. ADA recommended reference range Performed By: #### R ENAL ####[place] [id number] [facility] Phosphate [Mass/Vol] 6.1 mg/dL High 2.5-4.5 [facility] Comment on above: Performed By: #### R ENAL ####[place] [id number] [facility] Potassium [Moles/Vol] 5.4 mmol/L High 3.5-5.1 [facility] Comment on above: Performed By: #### R ENAL ####[place] [id number] [facility] Sodium [Moles/Vol] 128 mmol/L Low 136-145 [facility] Comment on above: Performed By: #### R ENAL ####[place] [address] [facility] Urea nitrogen [Mass/Vol] 50 mg/dL High 7-25 [facility] Comment on above: Performed By: #### R ENAL ####[place] [id number] [facility] Basic Metabolic Panelon 05-2 Anion gap [Moles/Vol] 21.3 mmol/L High 6.0-15.0 Th e [facility] Comment on above: Order Comment: Comme nt In PACU Performed By: #### C BC, BMP ####[place] [id number] [facility] Calcium [Mass/Vol] 8.9 mg/dL Normal 8.6-10.3 [facility] Comment on above: Order Comment: Comme nt In PACU Performed By: #### C BC, BMP ####[place] [id number] [facility] Chloride [Moles/Vol] 92 mmol/L Low 98-107 [facility] Comment on above: Order Comment: Comme nt In PACU Performed By: #### C BC, BMP ####[place] [id number] [facility] CO2 [Moles/Vol] 23.2 mmol/L Normal 21.0-31.0 [facility] Comment on above: Order Comment: Comme nt In PACU Performed By: #### C BC, BMP ####[place] [id number] [facility] Creatinine [Mass/Vol] 4.85 mg/dL High 0.60-1.20 [facility] Comment on above: Order Comment: Comme nt In PACU Performed By: #### C BC, BMP ####[address] Creatinine Clr Calc Pharmacy 8.52 Normal [facility] Comment on above: Order Comment: Comme nt In PACU Result Comment: PERF ORMED BY:[address] [place] [phone] MEDICAL MAJOR LARSON M.D. Performed By: #### C BC, BMP ####[place] [id number] [facility] GFR/1.73 sq M.predicted MDRD (S/P/Bld) [Vol rate/Area] 8.778 mL/min/{1.73_m2} Normal [facility] Comment on above: Order Comment: Comme nt In PACU Performed By: #### C BC, BMP ####[address] [place] [address] [facility] Glucose [Mass/Vol] 174 mg/dL High 70-100 [facility] Comment on above: Order Comment: Comme nt In PACU Result Comment: [place] Glucose Reference Range is dependent on time and content of last meal. Glucose of more than 200 mg/dL in a nonstressed, ambulatory subject supports the diagnosis of Diabetes Mellitus. ADA recommended reference range Performed By: #### C BC, BMP ####[place] [id number] [facility] Potassium [Moles/Vol] 4.5 mmol/L Normal 3.5-5.1 [facility] Comment on above: Order Comment: Comme nt In PACU Performed By: #### C BC, BMP ####[place] [id number] [facility] Sodium [Moles/Vol] 132 mmol/L Low 136-145 [facility] Comment on above: Order Comment: Comme nt In PACU Performed By: #### C BC, BMP ####[place] [id number] [facility] Urea nitrogen [Mass/Vol] 38 mg/dL High 7-25 [facility] Comment on above: Order Comment: Comme nt In PACU Performed By: #### C BC, BMP ####[place] [id number] [facility] Complete Blood Count Auto Di ffon 07-04-2023 Basophils (Bld) [#/Vol] 0.0 10*3/uL Normal 0.0-0.2 [facility] Comment on above: Order Comment: Comme nt In PACU Result Comment: PERF ORMED BY:[address] [place], [place] [phone] MEDICAL DIRECTORRAMEZ LARSON M.D. Performed By: #### C BC, BMP ####[place] [phone] [place] Basophils/100 WBC (Bld) 0.1 % Normal . T [facility] Comment on above: Order Comment: Comme nt In PACU Performed By: #### C BC, BMP ####[address] Eosinophils (Bld) [#/Vol] 0.1 10*3/uL Normal 0.0-0.45 [facility] Comment on above: Order Comment: Comme nt In PACU Performed By: #### C BC, BMP ####[address] Eosinophils/100 WBC (Bld) 1.3 % Normal . [facility] Comment on above: Order Comment: Comme nt In PACU Performed By: #### C BC, BMP ####[address] Erythrocyte distribution width (RBC) [Ratio] 18.3 % High 11.9-15.3 [facility] Comment on above: Order Comment: Comme nt In PACU Performed By: #### C BC, BMP ####[address] Hematocrit (Bld) [Volume fraction] 35.4 % Normal 34.0-46.4 [facility] Comment on above: Order Comment: Comme nt In PACU Performed By: #### C BC, BMP ####[address] Hemoglobin (Bld) [Mass/Vol] 11.4 g/dL Low 11.8-15.4 [facility] Comment on above: Order Comment: Comme nt In PACU Performed By: #### C BC, BMP ####[address] Lymphocytes (Bld) [#/Vol] 0.4 10*3/uL Low 1.00-4.8 [facility] Comment on above: Order Comment: Comme nt In PACU Performed By: #### C BC, BMP ####[address] Lymphocytes/100 WBC (Bld) 5.0 % Normal . [facility] Comment on above: Order Comment: Comme nt In PACU Performed By: #### C BC, BMP ####[address] MCH (RBC) [Entitic mass] 28.6 pg Normal 24.7-34.3 [facility] Comment on above: Order Comment: Comme nt In PACU Performed By: #### C BC, BMP ####[address] MCV (RBC) [Entitic vol] 88.8 fL Normal 80-100 [facility] Comment on above: Order Comment: Comme nt In PACU Performed By: #### C BC, BMP ####[address] Mean Corpuscular HGB Conc 32.2 g/dL Normal 32.0-35.0 [facility] Comment on above: Order Comment: Comme nt In PACU Performed By: #### C BC, BMP ####[address] Monocytes (Bld) [#/Vol] 0.2 10*3/uL Normal 0.0-0.8 [facility] Comment on above: Order Comment: Comme nt In PACU Performed By: #### C BC, BMP ####[address] Monocytes/100 WBC (Bld) 2.7 % Normal . [facility] Comment on above: Order Comment: Comme nt In PACU Performed By: #### C BC, BMP ####[address] Neutrophils (Bld) [#/Vol] 7.8 10*3/uL High 1.8-7.7 [facility] Comment on above: Order Comment: Comme nt In PACU Performed By: #### C BC, BMP ####[address] Neutrophils/100 WBC (Bld) 90.9 % Normal . [facility] Comment on above: Order Comment: Comme nt In PACU Performed By: #### C BC, BMP ####[address] [address] [facility] NRBC% 0.0 /100{WBC} Normal 0-0.5 [facility] Comment on above: Order Comment: Comme nt In PACU Performed By: #### C BC, BMP ####[address] [address] [facility] Platelet mean volume (Bld) [Entitic vol] 8.3 fL Normal 6.3-10.7 [facility] Comment on above: Order Comment: Comme nt In PACU Performed By: #### C BC, BMP ####[place] [id number] [facility] Platelets (Bld) [#/Vol] 155 10*3/uL Normal 150-450 [facility] Comment on above: Order Comment: Comme nt In PACU Performed By: #### C BC, BMP ####[place] [id number] [facility] RBC (Bld) [#/Vol] 3.98 10*6/uL Normal 3.60-5.00 [facility] Comment on above: Order Comment: Comme nt In PACU Performed By: #### C BC, BMP ####[place] [id number] [facility] WBC (Bld) [#/Vol] 8.5 10*3/uL Normal 3.8-11.6 [facility] Comment on above: Order Comment: Comme nt In PACU Performed By: #### C BC, BMP ####[place] [id number] [facility] ECG 12 lead ECGon 07-04-2023 ECG 12 lead ECG Normal [facility] Glucose Poct Glucometerson 0 07-04-2023 Commemt1 Glu2: Cleaned Meter Normal [facility] Comment on above: Result Comment: PERF ORMED BY:[address] [place], [place] [phone] MEDICAL DIRECTORRAMEZ LARSON M.D. Performed By: #### G LULS ####Point of Care testing, Glucose [Mass/Vol] 273 mg/dL Normal The [facility] Comment on above: Result Comment: [place] om Glucose Reference Range is dependent on time and content of last meal. Glucose of more than 200 mg/dL in a nonstressed, ambulatory subject supports the diagnosis of Diabetes Mellitus. Performed By: #### G LULS ####Point of Care testing, Glucose [Mass/Vol] 280 mg/dL Normal [facility] Comment on above: Result Comment: [place] om Glucose Reference Range is dependent on time and content of last meal. Glucose of more than 200 mg/dL in a nonstressed, ambulatory subject supports the diagnosis of Diabetes Mellitus.PERFORMED BY:[address] [place], [place] [phone] MEDICAL DIRECTORRAMEZ LARSON M.D. Performed By: #### G LULS ####Point of Care testing, Commemt1 Glu2: Cleaned Meter Normal The [facility] Comment on above: Result Comment: PERF ORMED BY:[place] [address] [place], [place] [phone] MEDICAL DIRECTORRAMEZ LARSON M.D. Performed By: #### G LULS ####Point of Care testing, Glucose [Mass/Vol] 142 mg/dL Normal The [facility] Comment on above: Result Comment: [place] om Glucose Reference Range is dependent on time and content of last meal. Glucose of more than 200 mg/dL in a nonstressed, ambulatory subject supports the diagnosis of Diabetes Mellitus. Performed By: #### G LULS ####Point of Care testing, Commemt1 Glu2: Cleaned Meter Normal The [facility] Comment on above: Result Comment: PERF ORMED BY:[address] [place], [place] [phone] MEDICAL DIRECTORRAMEZ LARSON M.D. Performed By: #### G LULS ####Point of Care testing, Glucose [Mass/Vol] 234 mg/dL Normal The [facility] Comment on above: Result Comment: [place] om Glucose Reference Range is dependent on time and content of last meal. Glucose of more than 200 mg/dL in a nonstressed, ambulatory subject supports the diagnosis of Diabetes Mellitus. Performed By: #### G LULS ####Point of Care testing, Commemt1 Glu2: Cleaned Meter Normal The [facility] Comment on above: Result Comment: PERF ORMED BY:[address] [place], [place] [phone] MEDICAL DIRECTORRAMEZ LARSON M.D. Performed By: #### G LULS ####Point of Care testing, Glucose [Mass/Vol] 226 mg/dL Normal The [facility] Comment on above: Result Comment: [place] Glucose Reference Range is dependent on time and content of last meal. Glucose of more than 200 mg/dL in a nonstressed, ambulatory subject supports the diagnosis of Diabetes Mellitus. Performed By: #### G LULS ####Point of Care testing, Renal Function Panelon 07-03 Albumin [Mass/Vol] 2.9 g/dL Low 3.5-5.7 The [facility] Comment on above: Performed By: #### R ENAL ####[address] [address] [facility] Anion gap [Moles/Vol] 15.6 mmol/L High 6.0-15.0 Th e [facility] Comment on above: Performed By: #### R ENAL ####[address] [address] [facility] Calcium [Mass/Vol] 8.6 mg/dL Normal 8.6-10.3 The [facility] Comment on above: Performed By: #### R ENAL ####[address] [address] [place] Chloride [Moles/Vol] 92 mmol/L Low 98-107 The [facility] Comment on above: Performed By: #### R ENAL ####[address] [address] [facility] CO2 [Moles/Vol] 25.3 mmol/L Normal 21.0-31.0 The [facility] Comment on above: Performed By: #### R ENAL ####[address] [address] [facility] Creatinine [Mass/Vol] 4.70 mg/dL Significan t change up 0.60-1.20 The [facility] Comment on above: Performed By: #### R ENAL ####[address] [address] [facility] Creatinine Clr Calc Pharmacy 8.79 Normal The [facility] Comment on above: Result Comment: PERF ORMED BY:[address] [place], [place] [phone] MEDICAL DIRECTORRAMEZ LARSON M.D. Performed By: #### R ENAL ####[place] [id number] [facility] GFR/1.73 sq M.predicted MDRD (S/P/Bld) [Vol rate/Area] 9.116 mL/min/{1.73_m2} Normal The [facility] Comment on above: Performed By: #### R ENAL ####[place] [id number] [facility] Glucose [Mass/Vol] 220 mg/dL Significant change up 70-100 The [facility] Comment on above: Result Comment: [place] Glucose Reference Range is dependent on time and content of last meal. Glucose of more than 200 mg/dL in a nonstressed, ambulatory subject supports the diagnosis of Diabetes Mellitus. ADA recommended reference range Performed By: #### R ENAL ####[place] [id number] [facility] Phosphate [Mass/Vol] 4.8 mg/dL High 2.5-4.5 The [facility] Comment on above: Performed By: #### R ENAL ####[place] [address] [facility] Potassium [Moles/Vol] 3.9 mmol/L Normal 3.5-5.1 [facility] Comment on above: Performed By: #### R ENAL ####[place] [address] [facility] Sodium [Moles/Vol] 129 mmol/L Low 136-145 The [facility] Comment on above: Performed By: #### R ENAL ####[place] [address] [place] [id number] [facility] Urea nitrogen [Mass/Vol] 37 mg/dL High 7-25 The [facility] Comment on above: Performed By: #### R ENAL ####[place] [address] [place] [id number] [facility] XR cervical spine 2Von 07-03 XR cervical spine 2V Normal [facility] XR cervical spine 2V Normal [facility] Glucose Poct Glucometerson 0 07-03-2023 Glucose [Mass/Vol] 172 mg/dL Normal The [facility] Comment on above: Result Comment: [facility] Glucose Reference Range is dependent on time and content of last meal. Glucose of more than 200 mg/dL in a nonstressed, ambulatory subject supports the diagnosis of Diabetes Mellitus.PERFORMED BY:[address] [place], [place] [phone] MEDICAL DIRECTORRAMEZ LARSON M.D. Performed By: #### G LULS ####Point of Care testing, Glucose [Mass/Vol] 144 mg/dL Normal The [facility] Comment on above: Result Comment: [facility] Glucose Reference Range is dependent on time and content of last meal. Glucose of more than 200 mg/dL in a nonstressed, ambulatory subject supports the diagnosis of Diabetes Mellitus.PERFORMED BY:[place] [place], [place] [phone] MEDICAL DIRECTORRAMEZ LARSON M.D. Performed By: #### G LULS ####Point of Care testing, Glucose [Mass/Vol] 132 mg/dL Normal The [facility] Comment on above: Result Comment: [facility] Glucose Reference Range is dependent on time and content of last meal. Glucose of more than 200 mg/dL in a nonstressed, ambulatory subject supports the diagnosis of Diabetes Mellitus.PERFORMED BY:[address] [place], [place] [phone] MEDICAL DIRECTORRAMEZ SamsD. Performed By: #### G LULS ####Point of Care testing, Renal Function Panelon 07-02 Albumin [Mass/Vol] 3.2 g/dL Low 3.5-5.7 The [facility] Comment on above: Performed By: #### R ENAL ####[place] [id number] [facility] Anion gap [Moles/Vol] 18.6 mmol/L High 6.0-15.0 Th e [facility] Comment on above: Performed By: #### R ENAL ####[address] [address] [facility] Calcium [Mass/Vol] 8.9 mg/dL Normal 8.6-10.3 The [facility] Comment on above: Performed By: #### R ENAL ####[place] [id number] [facility] Chloride [Moles/Vol] 92 mmol/L Low 98-107 The [facility] Comment on above: Performed By: #### R ENAL ####[place] [id number] [facility] CO2 [Moles/Vol] 25.8 mmol/L Normal 21.0-31.0 The [facility] Comment on above: Performed By: #### R ENAL ####[address] [address] [facility] Creatinine [Mass/Vol] 3.72 mg/dL Significan t change up 0.60-1.20 The [facility] Comment on above: Performed By: #### R ENAL ####[address] [address] [facility] Creatinine Clr Calc Pharmacy 11.11 Normal The [facility] Comment on above: Result Comment: PERF ORMED BY:[address] [place], [place] [phone] MEDICAL MAJOR LARSON M.D. Performed By: #### R ENAL ####[place] [id number] [facility] GFR/1.73 sq M.predicted MDRD (S/P/Bld) [Vol rate/Area] 12.069 mL/min/{1.73_m2} Normal The [facility] Comment on above: Performed By: #### R ENAL ####[address] Glucose [Mass/Vol] 120 mg/dL Significant change up 70-100 The [facility] Comment on above: Result Comment: [place] om Glucose Reference Range is dependent on time and content of last meal. Glucose of more than 200 mg/dL in a nonstressed, ambulatory subject supports the diagnosis of Diabetes Mellitus. ADA recommended reference range Performed By: #### R ENAL ####[address] Phosphate [Mass/Vol] 3.4 mg/dL Normal 2.5-4.5 The [facility] Comment on above: Performed By: #### R ENAL ####[address] Potassium [Moles/Vol] 3.4 mmol/L Low 3.5-5.1 The [facility] Comment on above: Performed By: #### R ENAL ####[address] Sodium [Moles/Vol] 133 mmol/L Low 136-145 [facility] Comment on above: Performed By: #### R ENAL ####[address] Urea nitrogen [Mass/Vol] 26 mg/dL High 7-25 The [facility] Comment on above: Performed By: #### R ENAL ####[address] Glucose Poct Glucometerson 0 07-02-2023 Glucose [Mass/Vol] 85 mg/dL Normal The [facility] Comment on above: Result Comment: [place] om Glucose Reference Range is dependent on time and content of last meal. Glucose of more than 200 mg/dL in a nonstressed, ambulatory subject supports the diagnosis of Diabetes Mellitus.PERFORMED BY:[address] [place] [address] [place], [place] [phone] MEDICAL DIRECTORRAMEZ LARSON M.D. Performed By: #### G LULS ####Point of Care testing, Commemt1 Glu2: Cleaned Meter Normal The [facility] Comment on above: Result Comment: PERF ORMED BY:[address] [place] [place], [place] [phone] MEDICAL DIRECTORRAMEZ LARSON M.D. Performed By: #### G LULS ####Point of Care testing, Glucose [Mass/Vol] 82 mg/dL Normal The [facility] Comment on above: Result Comment: [place] om Glucose Reference Range is dependent on time and content of last meal. Glucose of more than 200 mg/dL in a nonstressed, ambulatory subject supports the diagnosis of Diabetes Mellitus. Performed By: #### G LULS ####Point of Care testing, Glucose [Mass/Vol] 129 mg/dL Normal The [facility] Comment on above: Result Comment: [place] om Glucose Reference Range is dependent on time and content of last meal. Glucose of more than 200 mg/dL in a nonstressed, ambulatory subject supports the diagnosis of Diabetes Mellitus.PERFORMED BY:[address] [place] [address] [place], [place] [phone] MEDICAL MAJOR LARSON M.D. Performed By: #### G LULS ####Point of Care testing, Glucose [Mass/Vol] 174 mg/dL Normal The [facility] Comment on above: Result Comment: [place] om Glucose Reference Range is dependent on time and content of last meal. Glucose of more than 200 mg/dL in a nonstressed, ambulatory subject supports the diagnosis of Diabetes Mellitus.PERFORMED BY:[address] [address] [place], [place] [phone] MEDICAL MAJOR LARSON M.D. Performed By: #### G LULS ####Point of Care testing, Renal Function Panelon 07-01 Albumin [Mass/Vol] 3.2 g/dL Low 3.5-5.7 The [facility] Comment on above: Performed By: #### R ENAL ####[address] [address] [facility] Anion gap [Moles/Vol] 18.9 mmol/L High 6.0-15.0 Th e [facility] Comment on above: Performed By: #### R ENAL ####[place] [id number] [facility] Calcium [Mass/Vol] 8.9 mg/dL Normal 8.6-10.3 The [facility] Comment on above: Performed By: #### R ENAL ####[place] [address] [facility] Chloride [Moles/Vol] 89 mmol/L Low 98-107 The [facility] Comment on above: Performed By: #### R ENAL ####[place] [address] [facility] CO2 [Moles/Vol] 24.2 mmol/L Normal 21.0-31.0 The [facility] Comment on above: Performed By: #### R ENAL ####[place] [address] [facility] Creatinine [Mass/Vol] 4.96 mg/dL Significan t change up 0.60-1.20 The [facility] Comment on above: Performed By: #### R ENAL ####[place] [address] [facility] Creatinine Clr Calc Pharmacy 8.33 Normal The [facility] Comment on above: Result Comment: PERF ORMED BY:[address] [place], [place] [phone] MEDICAL MAJOR LARSON M.D. Performed By: #### R ENAL ####[place] [id number] [facility] GFR/1.73 sq M.predicted MDRD (S/P/Bld) [Vol rate/Area] 8.546 mL/min/{1.73_m2} Normal The [facility] Comment on above: Performed By: #### R ENAL ####[address] [address] [facility] Glucose [Mass/Vol] 226 mg/dL High 70-100 The [facility] Comment on above: Result Comment: [facility] Glucose Reference Range is dependent on time and content of last meal. Glucose of more than 200 mg/dL in a nonstressed, ambulatory subject supports the diagnosis of Diabetes Mellitus. ADA recommended reference range Performed By: #### R ENAL ####[place] [id number] [facility] Phosphate [Mass/Vol] 5.8 mg/dL High 2.5-4.5 The [facility] Comment on above: Performed By: #### R ENAL ####[address] Potassium [Moles/Vol] 4.1 mmol/L Normal 3.5-5.1 [facility] Comment on above: Performed By: #### R ENAL ####[place] [id number] [facility] Sodium [Moles/Vol] 128 mmol/L Low 136-145 [facility] Comment on above: Performed By: #### R ENAL ####[place] [address] [facility] Urea nitrogen [Mass/Vol] 50 mg/dL High 7-25 [facility] Comment on above: Performed By: #### R ENAL ####[place] [id number] [place] Glucose Poct Glucometerson 0 - Glucose [Mass/Vol] 180 mg/dL Normal The [facility] Comment on above: Result Comment: [facility] Glucose Reference Range is dependent on time and content of last meal. Glucose of more than 200 mg/dL in a nonstressed, ambulatory subject supports the diagnosis of Diabetes Mellitus.PERFORMED BY:[address] [place], [place] [phone] MEDICAL DIRECTORRAMEZ LARSON M.D. Performed By: #### G LUANNITA ####Point of Care testing, Glucose [Mass/Vol] 141 mg/dL Normal The [facility] Comment on above: Result Comment: [place] Glucose Reference Range is dependent on time and content of last meal. Glucose of more than 200 mg/dL in a nonstressed, ambulatory subject supports the diagnosis of Diabetes Mellitus.PERFORMED BY:[address] [place], [place] [phone] MEDICAL DIRECTORRAMEZ LARSON M.D. Performed By: #### G LULS ####Point of Care testing, Glucose [Mass/Vol] 248 mg/dL Normal The [facility] Comment on above: Result Comment: [facility] Glucose Reference Range is dependent on time and content of last meal. Glucose of more than 200 mg/dL in a nonstressed, ambulatory subject supports the diagnosis of Diabetes Mellitus.PERFORMED BY:[address] [place], [place] [phone] MEDICAL DIRECTORRAMEZ LARSON M.D. Performed By: #### G LULS ####Point of Care testing, Glucose [Mass/Vol] 254 mg/dL Normal The [facility] Comment on above: Result Comment: [facility] Glucose Reference Range is dependent on time and content of last meal. Glucose of more than 200 mg/dL in a nonstressed, ambulatory subject supports the diagnosis of Diabetes Mellitus.PERFORMED BY:[address] [place], [place] [phone] MEDICAL DIRECTORRAMEZ LARSON M.D. Performed By: #### G LULS ####Point of Care testing, Renal Function Panelon 06-30 Albumin [Mass/Vol] 3.1 g/dL Low 3.5-5.7 [facility] Comment on above: Performed By: #### R ENAL ####[address] [address] [facility] Anion gap [Moles/Vol] 18.3 mmol/L High 6.0-15.0 Th e [facility] Comment on above: Performed By: #### R ENAL ####[address] [address] [facility] Calcium [Mass/Vol] 8.5 mg/dL Low 8.6-10.3 [facility] Comment on above: Performed By: #### R ENAL ####[address] Chloride [Moles/Vol] 91 mmol/L Low 98-107 [facility] Comment on above: Performed By: #### R ENAL ####[address] CO2 [Moles/Vol] 26.4 mmol/L Normal 21.0-31.0 [facility] Comment on above: Performed By: #### R ENAL ####[address] Creatinine [Mass/Vol] 4.07 mg/dL Significan t change up 0.60-1.20 [facility] Comment on above: Performed By: #### R ENAL ####[address] Creatinine Clr Calc Pharmacy 10.15 Normal The [facility] Comment on above: Result Comment: PERF ORMED BY:[address] [place], [place] [phone] MEDICAL MAJOR LARSON M.D. Performed By: #### R ENAL ####[place] [id number] [facility] GFR/1.73 sq M.predicted MDRD (S/P/Bld) [Vol rate/Area] 10.834 mL/min/{1.73_m2} Normal The [facility] Comment on above: Performed By: #### R ENAL ####[place] [id number] [facility] Glucose [Mass/Vol] 312 mg/dL Significant change up 70-100 [facility] Comment on above: Result Comment: [place] Glucose Reference Range is dependent on time and content of last meal. Glucose of more than 200 mg/dL in a nonstressed, ambulatory subject supports the diagnosis of Diabetes Mellitus. ADA recommended reference range Performed By: #### R ENAL ####[place] [address] [place] [address] [facility] Phosphate [Mass/Vol] 4.7 mg/dL High 2.5-4.5 [facility] Comment on above: Performed By: #### R ENAL ####[place] [address] [place] [address] [facility] Potassium [Moles/Vol] 3.7 mmol/L Normal 3.5-5.1 [facility] Comment on above: Performed By: #### R ENAL ####[address] [address] [facility] Sodium [Moles/Vol] 132 mmol/L Low 136-145 [facility] Comment on above: Performed By: #### R ENAL ####[place] [address] [place] [id number] [facility] Urea nitrogen [Mass/Vol] 35 mg/dL High 7-25 [facility] Comment on above: Performed By: #### R ENAL ####[address] [address] [facility] XR cervical spine LAT/FLX/EX Ton 07-01-2023 XR cervical spine LAT/FLX/EXT Normal [facility] Activated partial thrombopla stin time (aPTT) in platelet poor plasma by coagulation aOrdered By: Gillian Mcgregor on 06-30-2023 aPTT Coag (PPP) [Time] 33.6 s 25.1-36.5 [facility] Comment on above: A hematocrit value g reater than 55% may lead to inaccurate results in coagulation testing. Patients having hematocrit values >55% require a special collection tube for coagulation studies. Please contact the laboratory at [phone] for redraw instructions. Automated basophil %Ordered By: Gillian Mcgregor on 06-30-2023 Basophils/100 WBC (Bld) 0.3 % Normal . [facility] Comment on above: Performed By: #### P T, PTT, HS TROP, CK, BNP, ESR, CBC ####[place] [id number] [facility] Automated basophil countOrde red By: Gillian Mcgregor on 06-30-2023 Basophils (Bld) [#/Vol] 0.0 10*3/uL Normal 0.0-0.2 [facility] Comment on above: Performed By: #### P T, PTT, HS TROP, CK, BNP, ESR, CBC ####[address] Automated blood monocyte cou ntOrdered By: Gillian Mcgregor on 06-30-2023 Monocytes (Bld) [#/Vol] 0.9 10*3/uL High 0.0-0.8 [facility] Comment on above: Performed By: #### P T, PTT, HS TROP, CK, BNP, ESR, CBC ####[address] Automated eosinophil %Ordere d By: Gillian Mcgregor on 06-30-2023 Eosinophils/100 WBC (Bld) 0.3 % Normal . [facility] Comment on above: Performed By: #### P T, PTT, HS TROP, CK, BNP, ESR, CBC ####[address] Automated eosinophil countOr dered By: Gillian Mcgregor on 06-30-2023 Eosinophils (Bld) [#/Vol] 0.0 10*3/uL Normal 0.0-0.45 [facility] Comment on above: Performed By: #### P T, PTT, HS TROP, CK, BNP, ESR, CBC ####[address] Automated monocyte %Ordered By: Gillian Mcgregor on 06-30-2023 Monocytes/100 WBC (Bld) 9.2 % Normal . [facility] Comment on above: Performed By: #### P T, PTT, HS TROP, CK, BNP, ESR, CBC ####[address] Automated neutrophil %Ordere d By: Gillian Mcgregor on 06-30-2023 Neutrophils/100 WBC (Bld) 82.7 % Normal . [facility] Comment on above: Performed By: #### P T, PTT, HS TROP, CK, BNP, ESR, CBC ####[place] [id number] [facility] BNP ser/plasOrdered By: Nehemias Mcgregor on 06-30-2023 Natriuretic peptide B (Bld) [Mass/Vol] 794.0 pg/mL High 5-100 [facility] Comment on above: Result Comment: PERF ORMED BY:[address] [place], [place] [phone] MEDICAL DIRECTORRAMEZ LARSON M.D. Performed By: #### P T, PTT, HS TROP, CK, BNP, ESR, CBC ####[place] [id number] [facility] Basic Metabolic Panelon 06-11 Creatinine Clr Calc Pharmacy 15.71 Normal [facility] Comment on above: Performed By: #### T SH3, BMP, T4F, CRP ####[address] GFR/1.73 sq M.predicted MDRD (S/P/Bld) [Vol rate/Area] 18.296 mL/min/{1.73_m2} Normal [facility] Comment on above: Performed By: #### T SH3, BMP, T4F, CRP ####[address] C reactive protein [Mass/vol ume] in Serum or PlasmaOrdered By: Gillian Mcgregor on 06-30-2023 CRP [Mass/Vol] 21.7 mg/dL High 0.0-0.5 [facility] C-Reactive Proteinon 024 C-Reactive Protein 21.7 mg/dL High 0.0-0.5 [facility] Comment on above: Performed By: #### T SH3, BMP, T4F, CRP ####[place] [id number] [facility] CT angio headon 06-30-2023 CT angio head Normal [facility] CT head/brain wo conon 06-29 CT head/brain wo con Normal The [facility] CT lumbar spine wo conon CT lumbar spine wo con Normal Th e [facility] Calcium [Mass/volume] in Ser um or PlasmaOrdered By: Gillian Mcgregor on 06-30-2023 Calcium [Mass/Vol] 9.4 mg/dL Normal 8.6-10.3 [facility] Comment on above: Performed By: #### T SH3, BMP, T4F, CRP ####[place] [id number] [facility] Carbon dioxide, total [Moles /volume] in Serum or PlasmaOrdered By: Gillian Mcgregor on 06-30-2023 CO2 [Moles/Vol] 26.5 mmol/L Normal 21.0-31.0 [facility] Comment on above: Performed By: #### T SH3, BMP, T4F, CRP ####[address] Chloride [Moles/volume] in S steffanie or PlasmaOrdered By: Gillian Mcgregor on 06-30-2023 Chloride [Moles/Vol] 90 mmol/L Low 98-107 [facility] Comment on above: Performed By: #### T SH3, BMP, T4F, CRP ####[place] [id number] [facility] Complete Blood Count Auto Di ffon 06-30-2023 Mean Corpuscular HGB Conc 32.6 g/dL Normal 32.0-35.0 [facility] Comment on above: Performed By: #### P T, PTT, HS TROP, CK, BNP, ESR, CBC ####[place] [id number] [facility] Monocytes/100 WBC (Bld) 25.76 % High 0.00-20.00 T [facility] Comment on above: Result Comment: For adults in ED, MDW > 20.0 may be associated with a higher risk of sepsis during the first 12 hrs of hospital admission Performed By: #### P T, PTT, HS TROP, CK, BNP, ESR, CBC ####[place] [id number] [facility] NRBC% 0.0 /100{WBC} Normal 0-0.5 [facility] Comment on above: Performed By: #### P T, PTT, HS TROP, CK, BNP, ESR, CBC ####[place] [address] [place] [id number] [facility] Creatine kinase [Enzymatic a ctivity/volume] in Serum or PlasmaOrdered By: Gillian Mcgregor on 06-30-2023 CK [Catalytic activity/Vol] 108 U/L Normal 30-223 [facility] Comment on above: Performed By: #### P T, PTT, HS TROP, CK, BNP, ESR, CBC ####[address] Creatinine [Mass/volume] in Serum or PlasmaOrdered By: Gillian Mcgregor on 06-30-2023 Creatinine [Mass/Vol] 2.63 mg/dL High 0.60-1.20 [facility] Comment on above: Performed By: #### T SH3, BMP, T4F, CRP ####[place] [id number] [facility] ECG 12 lead ECGon 06-30-2023 ECG 12 lead ECG Normal [facility] Erythrocyte Sedimentation Ra jie 06-30-2023 ESR (Bld) [Velocity] 102 mm/h High 0-29 [facility] Comment on above: Result Comment: PERF ORMED BY:[address] [place], [place] [phone] MEDICAL DIRECTORRAMEZ LARSON M.D. Performed By: #### P T, PTT, HS TROP, CK, BNP, ESR, CBC ####[place] [id number] [facility] Erythrocyte distribution wid th [Ratio] by Automated countOrdered By: Gillian Mcgregor on 06-30-2023 Erythrocyte distribution width (RBC) [Ratio] 18.3 % High 11.9-15.3 [facility] Comment on above: Performed By: #### P T, PTT, HS TROP, CK, BNP, ESR, CBC ####[place] [id number] [facility] Erythrocyte sedimentation ra te by Photometric methodOrdered By: Gillian Mcgregor on 06-30-2023 ESR Photometric method (Bld) [Velocity] 102 mm/hr High 0-29 [facility] Erythrocytes [#/volume] in B lood by Automated countOrdered By: Gillian Mcgregor on 06-30-2023 RBC (Bld) [#/Vol] 4.23 10*6/uL Normal 3.60-5.00 [facility] Comment on above: Performed By: #### P T, PTT, HS TROP, CK, BNP, ESR, CBC ####[facility] [id number] [place] [address] [facility] Glucose Poct Glucometerson 0 06-30-2023 Glucose [Mass/Vol] 131 mg/dL Normal [facility] Comment on above: Result Comment: [place] om Glucose Reference Range is dependent on time and content of last meal. Glucose of more than 200 mg/dL in a nonstressed, ambulatory subject supports the diagnosis of Diabetes Mellitus.PERFORMED BY:[address] [place], [place] [phone] MEDICAL DIRECTORRAMEZ LARSON M.D. Performed By: #### G DAVID ####Point of Care testing, Glucose [Mass/volume] in Ser um or PlasmaOrdered By: Gillian Mcgregor on 06-30-2023 Glucose [Mass/Vol] 130 mg/dL High 70-100 [facility] Comment on above: ADA recommended refe rence rangeRandom Glucose Reference Range is dependent on time and content of last meal. Glucose of more than 200 mg/dL in a nonstressed, ambulatory subject supports the diagnosis of Diabetes Mellitus. Result Comment: [place] om Glucose Reference Range is dependent on time and content of last meal. Glucose of more than 200 mg/dL in a nonstressed, ambulatory subject supports the diagnosis of Diabetes Mellitus. ADA recommended reference range Performed By: #### T SH3, BMP, T4F, CRP ####[place] [address] [place] [id number] [facility] Hematocrit [Volume Fraction] of Blood by Automated countOrdered By: Gillian Mcgregor on 06-30-2023 Hematocrit (Bld) [Volume fraction] 37.4 % Normal 34.0-46.4 [facility] Comment on above: Performed By: #### P T, PTT, HS TROP, CK, BNP, ESR, CBC ####[facility] Hemoglobin [Mass/volume] in BloodOrdered By: Gillian Mcgregor on 06-30-2023 Hemoglobin (Bld) [Mass/Vol] 12.2 g/dL Normal 11.8-15.4 [facility] Comment on above: Performed By: #### P T, PTT, HS TROP, CK, BNP, ESR, CBC ####[place] [address] INR in Platelet poor plasma by Coagulation assayOrdered By: Gillian Mcgregor on 06-30-2023 INR Coag (PPP) [Relative time] 1.0 {INR} Normal [facility] Comment on above: INR Therapeutic [...] 4.5 Performed By: #### P T, PTT, HS TROP, CK, BNP, ESR, CBC ####[place] [address] Leukocytes [#/volume] correc tr for nucleated erythrocytes in Blood by Automated counOrdered By: Gillian Mcgregor on 06-30-2023 WBC corrected for nucl RBC Auto (Bld) [#/Vol] 9.4 10*3/uL 3.8-11.6 [facility] Leukocytes [#/volume] in Blo od by Automated countOrdered By: Gillian Mcgregor on 06-30-2023 WBC (Bld) [#/Vol] 9.4 10*3/uL Normal 3.8-11.6 [facility] Comment on above: Performed By: #### P T, PTT, HS TROP, CK, BNP, ESR, CBC ####[address] Lymphocytes [#/volume] in Bl ood by Automated countOrdered By: Gillian Mcgregor on 06-30-2023 Lymphocytes (Bld) [#/Vol] 0.7 10*3/uL Low 1.00-4.8 [facility] Comment on above: Performed By: #### P T, PTT, HS TROP, CK, BNP, ESR, CBC ####[address] Lymphocytes/100 leukocytes i n Blood by Automated countOrdered By: Gillian Mcgregor on 06-30-2023 Lymphocytes/100 WBC (Bld) 7.5 % Normal . [facility] Comment on above: Performed By: #### P T, PTT, HS TROP, CK, BNP, ESR, CBC ####[address] MCH [Entitic mass] by Automa tr countOrdered By: Gillian Mcgregor on 06-30-2023 MCH (RBC) [Entitic mass] 28.8 pg Normal 24.7-34.3 [facility] Comment on above: Performed By: #### P T, PTT, HS TROP, CK, BNP, ESR, CBC ####[place] [id number] [facility] MCHC Auto (RBC) [Mass/Vol]Or dered By: Gillian Mcgregor on 06-30-2023 MCHC (RBC) [Mass/Vol] 32.6 g/dL 32.0-35.0 [facility] MCV [Entitic volume] by Auto mated countOrdered By: Gillian Mcgregor on 06-30-2023 MCV (RBC) [Entitic vol] 88.3 fL Normal 80-[address] [facility] Comment on above: Performed By: #### P T, PTT, HS TROP, CK, BNP, ESR, CBC ####[facility] [id number] [place] [address] [facility] Monocyte distribution width [Entitic volume] in Blood by AutomatedOrdered By: Gillian Mcgregor on 06-30-2023 Monocyte distribution width Auto (Bld) [Entitic vol] 25.76 % High 0.00-20.00 [facility] Comment on above: For adults in ED, MD W > 20.0 may be associated with a higher risk of sepsis during the first 12 hrs of hospital admission Neutrophils [#/volume] in Bl ood by Automated countOrdered By: Gillian Mcgregor on 06-30-2023 Neutrophils (Bld) [#/Vol] 7.7 10*3/uL Normal 1.8-7.7 [facility] Comment on above: Performed By: #### P T, PTT, HS TROP, CK, BNP, ESR, CBC ####[facility] [address] [place] [id number] [facility] No Panel InformationOrdered By: Gillian Mcgregor on 06-30-2023 Estimated GFR (CKD-EPI) 18.296 mL/Min [facility] Creatinine Clearance (Chem 15.71 [facility] Nucleated erythrocytes [Pres ence] in Blood by Automated countOrdered By: Gillian Mcgregor on 06-30-2023 Nucleated RBC Auto Ql (Bld) 0.0 /100{WBC} 0-0.5 [facility] Partial Thromboplastin Timeo n 06-30-2023 aPTT Coag (Bld) [Time] 33.6 s Normal 25.1-36.5 [facility] Comment on above: Result Comment: A he matocrit value greater than 55% may lead to inaccurate results in coagulation testing. Patients having hematocrit values >55% require a special collection tube for coagulation studies. Please contact the laboratory at [phone] for redraw instructions.PERFORMED BY:[place] [address] [place], [place] [phone] MEDICAL DIRECTORRAMEZ LARSON M.D. Performed By: #### P T, PTT, HS TROP, CK, BNP, ESR, CBC ####[place] [id number] [facility] Platelet mean volume [Entiti c volume] in Blood by Automated countOrdered By: Gillian Mcgregor on 06-30-2023 Platelet mean volume (Bld) [Entitic vol] 8.5 fL Normal 6.3-10.7 [facility] Comment on above: Performed By: #### P T, PTT, HS TROP, CK, BNP, ESR, CBC ####[place] [id number] [facility] Platelets [#/volume] in Bloo d by Automated countOrdered By: Gillian Mcgregor on 06-30-2023 Platelets (Bld) [#/Vol] 143 10*3/uL Low 150-450 [facility] Comment on above: Performed By: #### P T, PTT, HS TROP, CK, BNP, ESR, CBC ####[address] Potassium [Moles/volume] in Serum or PlasmaOrdered By: Gillian Mcgregor on 06-30-2023 Potassium [Moles/Vol] 3.4 mmol/L Low 3.5-5.1 [facility] Comment on above: Performed By: #### T SH3, BMP, T4F, CRP ####[place] [id number] [facility] Prothrombin time (PT)Ordered By: Gillian Mcgregor on 06-30-2023 PT Coag (PPP) [Time] 11.4 s Normal 9.0-12.9 [facility] Comment on above: A hematocrit value g reater than 55% may lead to inaccurate results in coagulation testing. Patients having hematocrit values >55% require a special collection tube for coagulation studies. Please contact the laboratory at [phone] for redraw instructions. Result Comment: A he matocrit value greater than 55% may lead to inaccurate results in coagulation testing. Patients having hematocrit values >55% require a special collection tube for coagulation studies. Please contact the laboratory at [phone] for redraw instructions. Performed By: #### P T, PTT, HS TROP, CK, BNP, ESR, CBC ####[address] Serum or plasma anion gap de terminationOrdered By: Gillian Mcgregor on 06-30-2023 Anion gap [Moles/Vol] 19.9 mmol/L High 6.0-15.0 [facility] Comment on above: Performed By: #### T SH3, BMP, T4F, CRP ####[address] Sodium [Moles/volume] in Ser um or PlasmaOrdered By: Gillian Mcgregor on 06-30-2023 Sodium [Moles/Vol] 133 mmol/L Low 136-145 [facility] Comment on above: Performed By: #### T SH3, BMP, T4F, CRP ####[address] Thyrotropin [Units/volume] i n Serum or PlasmaOrdered By: Gillian Mcgregor on 06-30-2023 TSH Qn 2.38 m[IU]/L Normal 0.45-5.33 [facility] Comment on above: Result Comment: PERF ORMED BY:[address] [place], [place] [phone] MEDICAL DIRECTORRAMEZ LARSON M.D. Performed By: #### T SH3, BMP, T4F, CRP ####[place] [id number] [facility] Thyroxine (T4) free [Mass/vo lume] in Serum or PlasmaOrdered By: Gillian Mcgregor on 06-30-2023 Free T4 [Mass/Vol] 0.91 ng/dL Normal 0.61-1.12 [facility] Comment on above: Performed By: #### T SH3, BMP, T4F, CRP ####[address] Troponin I High Sensitivityo n 06-30-2023 Troponin I High Sensitivity 35.0 pg/mL High 0.0-15.0 [facility] Comment on above: Result Comment: PERF ORMED BY:[place] [address] [place], [place] [phone] MEDICAL DIRECTORRAMEZ LARSON M.D. Performed By: #### H S TROP ####[place] [address] [place] [address] [facility] Troponin I High Sensitivity 43.7 pg/mL High 0.0-15.0 [facility] Comment on above: Result Comment: PERF ORMED BY:[address] [place], [place] [phone] MEDICAL DIRECTORRAMEZ LARSON M.D. Performed By: #### P T, PTT, HS TROP, CK, BNP, ESR, CBC ####[place] [address] [place] [address] [facility] Troponin I.cardiac [Mass/vol ume] in Serum or Plasma by Detection limit <= 0.01 ng/Ordered By: Gillian Mcgregor on 06-30-2023 Troponin I.cardiac DL <= 0.01 ng/mL [Mass/Vol] 35.0 pg/mL High 0.0-15.0 [facility] Urea nitrogen [Mass/volume] in Serum or PlasmaOrdered By: Gillian Mcgregor on 06-30-2023 Urea nitrogen [Mass/Vol] 19 mg/dL Normal -25 [facility] Comment on above: Performed By: #### T SH3, BMP, T4F, CRP ####[place] [address] [place] [address] [facility] XR foot RT min 3V*on 024 XR foot RT min 3V* Normal [facility] Consent for Procedure/Surger yon 06-17-2023 Consent for Procedure/Surgery [id number]#1.00TIF F Normal [facility] Consent for Treatmenton Consent for Treatment [id number]#1.00TIF F [facility] Multi-Wound Charton 06-17-19 24 Multi-Wound Chart [id number]#1.00TI FF [facility] Nursing Assessment - Woundon 06-17-2023 Nursing Assessment - Wound [id number]#1.00TI FF [facility] Nursing Note - Woundon 06-16 Nursing Note - Wound [id number]#1.00TI FF [facility] Physician Orderon 06-17-2023 Physician Order [id number]#1.00TI FF [facility] Procedure - Woundon 06-17-19 Procedure - Wound [id number]#1.00TI FF [facility] Progress Note - Woundon Progress Note - Wound [id number]#1.00TI [facility] 37on 06-10-2023 37 *Increase midodrine to 10mg three times a day, last dose 4 hours prior to bedtime (last dose roughly around 5pm as patient notes she typically is in bed by 9pm). *Change metoprolol tartrate to succinate, 12.5mg daily. *Follow-up with cardiology 6-8 weeks. [facility] Office Visiton 06-10-2023 Follow-up visit [id number] Wilbert Wilson 1945 F Date Provider Department Center 06/10/2023 [facility] No family history on file Level of Service:17072 [place] OFFICE/OUTPATIENT ESTABLISHED MOD MDM 30 MIN Reason for Visit and Comments: Hypotension [407] [facility] Consent for Procedure/Surger yon 06-03-2023 Consent for Procedure/Surgery [id number]#1.00TI FF [facility] Consent for Treatmenton 05-12 Consent for Treatment [id number]#1.00TIF F [facility] Multi-Wound Charton 06-03-19 Multi-Wound Chart [id number]#1.00TI FF [facility] Nursing Assessment - Woundon 06-03-2023 Nursing Assessment - Wound [id number]#1.00TI FF [facility] Nursing Note - Woundon 06-02 Nursing Note - Wound [id number]#1.00TI FF [facility] Physician Orderon 06-03-2023 Physician Order [id number]#1.00TI FF [facility] Procedure - Woundon 06-03-19 Procedure - Wound [id number] [id number]#1.00TI FF [facility] Progress Note - Woundon 05-12 Progress Note - Wound [id number]#1.00TI FF [facility] CT angio neckon 05-27-2023 CT angio neck Normal [facility] Nursing Note - Woundon 05-11 Nursing Note - Wound [id number]#2.00TI FF [facility] Consent for Procedure/Surger yon 05-06-2023 Consent for Procedure/Surgery [id number]#1.00TI FF [facility] Consent for Treatmenton 04-11 Consent for Treatment [id number]#1.00TIF F [facility] Multi-Wound Charton 05-06-19 Multi-Wound Chart [id number] [facility] [id number]#1.00TI FF [facility] Nursing Assessment - Woundon 05-06-2023 Nursing Assessment - Wound [id number]#1.00TI FF Normal [facility] Nursing Note - Woundon 05-05 Nursing Note - Wound [id number]#1.00TI FF Normal [facility] Physician Orderon 05-06-2023 Physician Order [id number]#1.00TI FF [facility] Procedure - Woundon 05-06-19 Procedure - Wound [id number] [id number]#1.00TI FF [facility] Progress Note - Woundon 04-11 Progress Note - Wound [id number]#1.00TI [facility] Activated partial thrombopla stin time (aPTT) in platelet poor plasma by coagulation aOrdered By: Pennie Levin on 05-02-2023 aPTT Coag (PPP) [Time] 36.5 s 25.1-36.5 [facility] Comment on above: A hematocrit value g reater than 55% may lead to inaccurate results in coagulation testing. Patients having hematocrit values >55% require a special collection tube for coagulation studies. Please contact the laboratory at [phone] for redraw instructions. Automated basophil %Ordered By: Pennie Levin on 05-02-2023 Basophils/100 WBC (Bld) 0.6 % Normal . F [facility] Comment on above: Performed By: #### C BC, PT, PTT, BMP ####[facility] [place] [address] [place] [address] [facility] Automated basophil countOrde red By: Pennie Leivn on 05-02-2023 Basophils (Bld) [#/Vol] 0.1 10*3/uL Normal 0.0-0.2 [facility] Comment on above: Result Comment: PERF ORMED BY:[facility] [place], [place] [phone] MEDICAL DIRECTORRAMEZ LARSON M.D. Performed By: #### C BC, PT, PTT, BMP ####[address] Automated blood monocyte cou ntOrdered By: ePnnie Levin on 05-02-2023 Monocytes (Bld) [#/Vol] 0.9 10*3/uL High 0.0-0.8 [facility] Comment on above: Performed By: #### C BC, PT, PTT, BMP ####[address] Automated eosinophil %Ordere d By: Pennie Levin on 05-02-2023 Eosinophils/100 WBC (Bld) 3.7 % Normal . [facility] Comment on above: Performed By: #### C BC, PT, PTT, BMP ####[address] Automated eosinophil countOr dered By: Pennie Levin on 05-02-2023 Eosinophils (Bld) [#/Vol] 0.3 10*3/uL Normal 0.0-0.45 [facility] Comment on above: Performed By: #### C BC, PT, PTT, BMP ####[address] Automated monocyte %Ordered By: Pennie Levin on 05-02-2023 Monocytes/100 WBC (Bld) 10.4 % Normal . [facility] Comment on above: Performed By: #### C BC, PT, PTT, BMP ####[address] Automated neutrophil %Ordere d By: Pennie Levin on 05-02-2023 Neutrophils/100 WBC (Bld) 70.7 % Normal . [facility] Comment on above: Performed By: #### C BC, PT, PTT, BMP ####[address] Basic Metabolic Panelon 04-11 Creatinine Clr Calc Pharmacy 15.25 Normal [facility] Comment on above: Result Comment: PERF ORMED BY:[place] [address] [place], [place] [phone] MEDICAL DIRECTORRAMEZ LARSON M.D. Performed By: #### C BC, PT, PTT, BMP ####[place] [address] [place] [id number] [facility] GFR/1.73 sq M.predicted MDRD (S/P/Bld) [Vol rate/Area] 17.650 mL/min/{1.73_m2} Normal [facility] Comment on above: Performed By: #### C BC, PT, PTT, BMP ####[place] [address] head/brain wo conon 05-01 CT head/brain wo con Normal [facility] Calcium [Mass/volume] in Ser um or PlasmaOrdered By: Pennie Levin on 05-02-2023 Calcium [Mass/Vol] 9.3 mg/dL Normal 8.6-10.3 [facility] Comment on above: Performed By: #### C BC, PT, PTT, BMP ####[place] [address] Carbon dioxide, total [Moles /volume] in Serum or PlasmaOrdered By: Pennie Levin on 05-02-2023 CO2 [Moles/Vol] 28.6 mmol/L Normal 21.0-31.0 [facility] Comment on above: Performed By: #### C BC, PT, PTT, BMP ####[place] [address] [place] [id number] [facility] Chloride [Moles/volume] in S steffanie or PlasmaOrdered By: Pennie Levin on 05-02-2023 Chloride [Moles/Vol] 91 mmol/L Low 98-107 [facility] Comment on above: Performed By: #### C BC, PT, PTT, BMP ####[place] [address] [place] [id number] [facility] Complete Blood Count Auto Di ffon 05-02-2023 Mean Corpuscular HGB Conc 31.4 g/dL Low 32.0-35.0 [facility] Comment on above: Performed By: #### C BC, PT, PTT, BMP ####[address] Monocytes/100 WBC (Bld) 23.59 % High 0.00-20.00 [facility] Comment on above: Result Comment: For adults in ED, MDW > 20.0 may be associated with a higher risk of sepsis during the first 12 hrs of hospital admission Performed By: #### C BC, PT, PTT, BMP ####[address] NRBC% 0.1 /100{WBC} Normal 0-0.5 [facility] Comment on above: Performed By: #### C BC, PT, PTT, BMP ####[address] Creatinine [Mass/volume] in Serum or PlasmaOrdered By: Pennie Levin on 05-02-2023 Creatinine [Mass/Vol] 2.71 mg/dL High 0.60-1.20 [facility] Comment on above: Performed By: #### C BC, PT, PTT, BMP ####[address] ECG 12 lead ECGon 05-02-2023 ECG 12 lead ECG Normal [facility] Erythrocyte distribution wid th [Ratio] by Automated countOrdered By: Pennie Levni on 05-02-2023 Erythrocyte distribution width (RBC) [Ratio] 21.5 % High 11.9-15.3 [facility] Comment on above: Performed By: #### C BC, PT, PTT, BMP ####[address] Erythrocytes [#/volume] in B lood by Automated countOrdered By: Pennie Levin on 05-02-2023 RBC (Bld) [#/Vol] 4.84 10*6/uL Normal 3.60-5.00 [facility] Comment on above: Performed By: #### C BC, PT, PTT, BMP ####[address] [place] [address] [facility] Glucose [Mass/volume] in Ser um or PlasmaOrdered By: Pennie Levin on 05-02-2023 Glucose [Mass/Vol] 163 mg/dL High 70-100 [facility] Comment on above: ADA recommended refe rence rangeRandom Glucose Reference Range is dependent on time and content of last meal. Glucose of more than 200 mg/dL in a nonstressed, ambulatory subject supports the diagnosis of Diabetes Mellitus. Result Comment: [place] om Glucose Reference Range is dependent on time and content of last meal. Glucose of more than 200 mg/dL in a nonstressed, ambulatory subject supports the diagnosis of Diabetes Mellitus. ADA recommended reference range Performed By: #### C BC, PT, PTT, BMP ####[place] [id number] [facility] Hematocrit [Volume Fraction] of Blood by Automated countOrdered By: Pennie Levin on 05-02-2023 Hematocrit (Bld) [Volume fraction] 41.8 % Normal 34.0-46.4 [facility] Comment on above: Performed By: #### C BC, PT, PTT, BMP ####[place] [id number] [facility] Hemoglobin [Mass/volume] in BloodOrdered By: Pennie Levin on 05-02-2023 Hemoglobin (Bld) [Mass/Vol] 13.1 g/dL Normal 11.8-15.4 [facility] Comment on above: Performed By: #### C BC, PT, PTT, BMP ####[place] [id number] [facility] INR in Platelet poor plasma by Coagulation assayOrdered By: Pennie Levin on 05-02-2023 INR Coag (PPP) [Relative time] 1.0 {INR} Normal [facility] Comment on above: INR Therapeutic [...] 3 - 4.5 Performed By: #### C BC, PT, PTT, BMP ####[address] Leukocytes [#/volume] correc tr for nucleated erythrocytes in Blood by Automated counOrdered By: Pennie Levin on 05-02-2023 WBC corrected for nucl RBC Auto (Bld) [#/Vol] 8.9 10*3/uL 3.8-11.6 [facility] Leukocytes [#/volume] in Blo od by Automated countOrdered By: Pennie Levin on 05-02-2023 WBC (Bld) [#/Vol] 8.9 10*3/uL Normal 3.8-11.6 [facility] Comment on above: Performed By: #### C BC, PT, PTT, BMP ####[address] Lymphocytes [#/volume] in Bl ood by Automated countOrdered By: Pennie Levin on 05-02-2023 Lymphocytes (Bld) [#/Vol] 1.3 10*3/uL Normal 1.00-4.8 [facility] Comment on above: Performed By: #### C BC, PT, PTT, BMP ####[address] Lymphocytes/100 leukocytes i n Blood by Automated countOrdered By: Pennie Levin on 05-02-2023 Lymphocytes/100 WBC (Bld) 14.6 % Normal . [facility] Comment on above: Performed By: #### C BC, PT, PTT, BMP ####[place] [id number] [facility] MCH [Entitic mass] by Automa tr countOrdered By: Pennie Levin on 05-02-2023 MCH (RBC) [Entitic mass] 27.1 pg Normal 24.7-34.3 [facility] Comment on above: Performed By: #### C BC, PT, PTT, BMP ####[address] MCHC Auto (RBC) [Mass/Vol]Or dered By: Pennie Levin on 05-02-2023 MCHC (RBC) [Mass/Vol] 31.4 g/dL 32.0-35.0 [facility] MCV [Entitic volume] by Auto mated countOrdered By: Pennie Levin on 05-02-2023 MCV (RBC) [Entitic vol] 86.2 fL Normal 80-[address] [facility] Comment on above: Performed By: #### C BC, PT, PTT, BMP ####[address] Monocyte distribution width [Entitic volume] in Blood by AutomatedOrdered By: Pennie Levin on 05-02-2023 Monocyte distribution width Auto (Bld) [Entitic vol] 23.59 % 0.00-20.00 [facility] Comment on above: For adults in ED, MD W > 20.0 may be associated with a higher risk of sepsis during the first 12 hrs of hospital admission Neutrophils [#/volume] in Bl ood by Automated countOrdered By: Pennie Levin on 05-02-2023 Neutrophils (Bld) [#/Vol] 6.3 10*3/uL Normal 1.8-7.7 [facility] Comment on above: Performed By: #### C BC, PT, PTT, BMP ####[address] No Panel InformationOrdered By: Pennie Levin on 05-02-2023 Estimated GFR (CKD-EPI) 17.650 mL/Min [facility] Creatinine Clearance (Chem 15.25 [facility] 17.650 mL/Min [facility] 15.25 [facility] Nucleated erythrocytes [Pres ence] in Blood by Automated countOrdered By: Pennie Levin on 05-02-2023 Nucleated RBC Auto Ql (Bld) 0.1 /100{WBC} 0-0.5 [facility] Partial Thromboplastin Timeo n 05-02-2023 aPTT Coag (Bld) [Time] 36.5 s Normal 25.1-36.5 Th e [facility] Comment on above: Result Comment: A he matocrit value greater than 55% may lead to inaccurate results in coagulation testing. Patients having hematocrit values >55% require a special collection tube for coagulation studies. Please contact the laboratory at [phone] for redraw instructions.PERFORMED BY:[address] [place], [place] [phone] MEDICAL DIRECTORRAMEZ LARSON M.D. Performed By: #### C BC, PT, PTT, BMP ####[address] [address] [facility] Platelet mean volume [Entiti c volume] in Blood by Automated countOrdered By: Pennie Levin on 05-02-2023 Platelet mean volume (Bld) [Entitic vol] 8.0 fL Normal 6.3-10.7 [facility] Comment on above: Performed By: #### C BC, PT, PTT, BMP ####[address] [address] [facility] Platelets [#/volume] in Bloo d by Automated countOrdered By: Pennie Levin on 05-02-2023 Platelets (Bld) [#/Vol] 324 10*3/uL Normal 150-450 [facility] Comment on above: Performed By: #### C BC, PT, PTT, BMP ####[place] [id number] [facility] Potassium [Moles/volume] in Serum or PlasmaOrdered By: Pennie Levin on 05-02-2023 Potassium [Moles/Vol] 3.7 mmol/L Normal 3.5-5.1 [facility] Comment on above: Performed By: #### C BC, PT, PTT, BMP ####[place] [id number] [facility] Prothrombin time (PT)Ordered By: Pennie Levin on 05-02-2023 PT Coag (PPP) [Time] 11.8 s Normal 9.0-12.9 [facility] Comment on above: A hematocrit value g reater than 55% may lead to inaccurate results in coagulation testing. Patients having hematocrit values >55% require a special collection tube for coagulation studies. Please contact the laboratory at [phone] for redraw instructions. Result Comment: A he matocrit value greater than 55% may lead to inaccurate results in coagulation testing. Patients having hematocrit values >55% require a special collection tube for coagulation studies. Please contact the laboratory at [phone] for redraw instructions. Performed By: #### C BC, PT, PTT, BMP ####[address] [place] [address] [facility] Serum or plasma anion gap de terminationOrdered By: Pennie Levin on 05-02-2023 Anion gap [Moles/Vol] 18.1 mmol/L High 6.0-15.0 [facility] Comment on above: Performed By: #### C BC, PT, PTT, BMP ####[place] [address] [place] [address] [facility] Sodium [Moles/volume] in Ser um or PlasmaOrdered By: Pennie Levin on 05-02-2023 Sodium [Moles/Vol] 134 mmol/L Low 136-145 [facility] Comment on above: Performed By: #### C BC, PT, PTT, BMP ####[place] [address] [place] [address] [facility] Urea nitrogen [Mass/volume] in Serum or PlasmaOrdered By: Pennie Levin on 05-02-2023 Urea nitrogen [Mass/Vol] 15 mg/dL Normal 7-25 [facility] Comment on above: Performed By: #### C BC, PT, PTT, BMP ####[place] [address] [place] [address] [facility] CT cervical spine wo conon 0 04-16-2023 CT cervical spine wo con Normal [facility] ECG 12 lead ECGon 04-16-2023 ECG 12 lead ECG Normal [facility] Physician Orderon 04-08-2023 Physician Order [id number] Normal [facility] Basic Metabolic Panelon 03-14 Creatinine Clr Calc Pharmacy 12.23 Normal [facility] Comment on above: Result Comment: PERF ORMED BY:[place] [address] [place], [place] [phone] MEDICAL DIRECTORRAMEZ LARSON M.D. Performed By: #### B MP ####[place] [address] [place] [address] [facility] GFR/1.73 sq M.predicted MDRD (S/P/Bld) [Vol rate/Area] 13.539 mL/min/{1.73_m2} Normal [facility] Comment on above: Performed By: #### B MP ####[address] [address] [facility] Calcium [Mass/volume] in Ser um or PlasmaOrdered By: Gary Almaguer on 04-05-2023 Calcium [Mass/Vol] 9.4 mg/dL Normal 8.6-10.3 [facility] Comment on above: Performed By: #### B MP ####[address] [address] [facility] Capillary blood glucose eugenie urement by glucometer (mass/volume)Ordered By: Gary Almaguer on 04-05-2023 Glucose [Mass/Vol] 123 mg/dL Normal [facility] Comment on above: Random Glucose Refer ence Range is dependent on time and content of last meal. Glucose of more than 200 mg/dL in a nonstressed, ambulatory subject supports the diagnosis of Diabetes Mellitus. Result Comment: [facility] Glucose Reference Range is dependent on time and content of last meal. Glucose of more than 200 mg/dL in a nonstressed, ambulatory subject supports the diagnosis of Diabetes Mellitus.PERFORMED BY:[place] [address] [place], [place] [phone] MEDICAL DIRECTORRAMEZ LARSON M.D. Performed By: #### G LULS ####Point of Care testing, Carbon dioxide, total [Moles /volume] in Serum or PlasmaOrdered By: Gary Almaguer on 04-05-2023 CO2 [Moles/Vol] 28.9 mmol/L Normal 21.0-31.0 [facility] Comment on above: Performed By: #### B MP ####[address] [place] [address] [facility] Chloride [Moles/volume] in S steffanie or PlasmaOrdered By: Obyumikodabrendon Crabtreeomar on 04-05-2023 Chloride [Moles/Vol] 94 mmol/L Low 98-107 [facility] Comment on above: Performed By: #### B MP ####[address] [address] [facility] Creatinine [Mass/volume] in Serum or PlasmaOrdered By: Obyumikodabrendon Crabtreeomar on 04-05-2023 Creatinine [Mass/Vol] 3.38 mg/dL Significan t change up 0.60-1.20 [facility] Comment on above: Delta: 5.42 on 04/04 Performed By: #### B MP ####[address] [address] [facility] Glucose Poct Glucometerson 0 04-05-2023 Glucose [Mass/Vol] 183 mg/dL Normal [facility] Comment on above: Result Comment: [facility] Glucose Reference Range is dependent on time and content of last meal. Glucose of more than 200 mg/dL in a nonstressed, ambulatory subject supports the diagnosis of Diabetes Mellitus.PERFORMED BY:[place] [address] [place] [place], [place] [phone] MEDICAL MAJOR LARSON M.D. Performed By: #### G LULS ####Point of Care testing, Glucose [Mass/Vol] 133 mg/dL Normal [facility] Comment on above: Result Comment: [facility] Glucose Reference Range is dependent on time and content of last meal. Glucose of more than 200 mg/dL in a nonstressed, ambulatory subject supports the diagnosis of Diabetes Mellitus.PERFORMED BY:[place] [address] [place], [place] [phone] MEDICAL DIRECTORRAMEZ LARSON M.D. Performed By: #### G DAVID ####Point of Care testing, Glucose [Mass/volume] in Ser um or PlasmaOrdered By: Obyumikodabrendon Crabtreeomar on 04-05-2023 Glucose [Mass/Vol] 123 mg/dL High 70-100 [facility] Comment on above: ADA recommended refe rence rangeRandom Glucose Reference Range is dependent on time and content of last meal. Glucose of more than 200 mg/dL in a nonstressed, ambulatory subject supports the diagnosis of Diabetes Mellitus. Result Comment: [place] [facility] Glucose Reference Range is dependent on time and content of last meal. Glucose of more than 200 mg/dL in a nonstressed, ambulatory subject supports the diagnosis of Diabetes Mellitus. ADA recommended reference range Performed By: #### B MP ####[place] [address] No Panel InformationOrdered By: Obyumikodabrendon Crabtreeomar on 04-05-2023 Estimated GFR (CKD-EPI) 13.539 mL/Min [facility] Creatinine Clearance (Chem 12.23 [facility] Potassium [Moles/volume] in Serum or PlasmaOrdered By: Obyumikodabrendon Crabtreeomar on 04-05-2023 Potassium [Moles/Vol] 4.4 mmol/L Normal 3.5-5.1 [facility] Comment on above: Performed By: #### B MP ####[address] Serum or plasma anion gap de terminationOrdered By: Obyumikodabrendon Crabtreeomar on 04-05-2023 Anion gap [Moles/Vol] 14.5 mmol/L Normal 6.0-15.0 [facility] Comment on above: Performed By: #### B MP ####[address] Sodium [Moles/volume] in Ser um or PlasmaOrdered By: Obyumikodabrendon Crabtreeomar on 04-05-2023 Sodium [Moles/Vol] 133 mmol/L Low 136-145 [facility] Comment on above: Performed By: #### B MP ####[address] [place] [place] [address] [facility] Urea nitrogen [Mass/volume] in Serum or PlasmaOrdered By: Obaydah Daromar on 04-05-2023 Urea nitrogen [Mass/Vol] 25 mg/dL Significant change down 09-03 [facility] Comment on above: Delta: 55 on 4-0845 Performed By: #### B MP ####[place] [id number] [facility] Alanine aminotransferase [En zymatic activity/volume] in Serum or PlasmaOrdered By: Obaydah Daromar on 04-04-2023 ALT [Catalytic activity/Vol] 7 U/L Normal 7-52 [facility] Comment on above: Performed By: #### C MP ####[place] [id number] [facility] Albumin [Mass/volume] in Ser um or Plasma by Bromocresol green (BCG) dye binding methoOrdered By: Obaydah Daromar on 04-04-2023 Albumin BCG dye [Mass/Vol] 3.4 g/dL 3.5-5.7 [facility] Alkaline phosphatase [Enzyma tic activity/volume] in Serum or PlasmaOrdered By: Obaydah Daromar on 04-04-2023 ALP [Catalytic activity/Vol] 174 U/L High 34-104 [facility] Comment on above: Performed By: #### C MP ####[place] [id number] [facility] Aspartate aminotransferase [ Enzymatic activity/volume] in Serum or PlasmaOrdered By: Obaydah Daromar on 04-04-2023 AST [Catalytic activity/Vol] 12 U/L Low 13-39 [facility] Comment on above: Performed By: #### C MP ####[place] [id number] [facility] Bilirubin.total [Mass/volume ] in Serum or PlasmaOrdered By: Obaydah Daromar on 04-04-2023 Bilirubin [Mass/Vol] 0.3 mg/dL Normal 0.3-1.0 [facility] Comment on above: Performed By: #### C MP ####[address] [place] [address] [facility] Comprehensive Metabolic Pane eliseo 04-04-2023 Albumin [Mass/Vol] 3.4 g/dL Low 3.5-5.7 [facility] Comment on above: Performed By: #### C MP ####[address] [address] [facility] Anion gap [Moles/Vol] 15.9 mmol/L High 6.0-15.0 Th e [facility] Comment on above: Performed By: #### C MP ####[address] [address] [facility] Calcium [Mass/Vol] 8.8 mg/dL Normal 8.6-10.3 [facility] Comment on above: Performed By: #### C MP ####[address] [address] [facility] Chloride [Moles/Vol] 92 mmol/L Low 98-107 [facility] Comment on above: Performed By: #### C MP ####[address] [address] [facility] CO2 [Moles/Vol] 26.4 mmol/L Normal 21.0-31.0 [facility] Comment on above: Performed By: #### C MP ####[address] [address] [facility] Creatinine [Mass/Vol] 5.42 mg/dL Significan t change up 0.60-1.20 [facility] Comment on above: Performed By: #### C MP ####[address] [address] [facility] Creatinine Clr Calc Pharmacy 7.63 Normal [facility] Comment on above: Result Comment: PERF ORMED BY:[address] [place], [place] [phone] MEDICAL DIRECTORRAMEZ LARSON M.D. Performed By: #### C MP ####[address] [address] [facility] GFR/1.73 sq M.predicted MDRD (S/P/Bld) [Vol rate/Area] 7.683 mL/min/{1.73_m2} Normal [facility] Comment on above: Performed By: #### C MP ####[place] [id number] [facility] Glucose [Mass/Vol] 175 mg/dL High 70-100 [facility] Comment on above: Result Comment: [facility] Glucose Reference Range is dependent on time and content of last meal. Glucose of more than 200 mg/dL in a nonstressed, ambulatory subject supports the diagnosis of Diabetes Mellitus. ADA recommended reference range Performed By: #### C MP ####[address] Potassium [Moles/Vol] 4.3 mmol/L Normal 3.5-5.1 [facility] Comment on above: Performed By: #### C MP ####[address] Sodium [Moles/Vol] 130 mmol/L Low 136-145 [facility] Comment on above: Performed By: #### C MP ####[place] [id number] [facility] Urea nitrogen [Mass/Vol] 55 mg/dL High 7-25 [facility] Comment on above: Performed By: #### C MP ####[place] [id number] [facility] Glucose Poct Glucometerson 0 04-04-2023 Glucose [Mass/Vol] 175 mg/dL Normal [facility] Comment on above: Result Comment: [facility] Glucose Reference Range is dependent on time and content of last meal. Glucose of more than 200 mg/dL in a nonstressed, ambulatory subject supports the diagnosis of Diabetes Mellitus.PERFORMED BY:[address] [place], [place] [phone] MEDICAL DIRECTORRAMEZ LARSON M.D. Performed By: #### G LUANNITA ####Point of Care testing, Commemt1 Glu2: Cleaned Meter Normal [facility] Comment on above: Result Comment: PERF ORMED BY:[place] [address] [place], [place] [phone] MEDICAL DIRECTORRAMEZ LARSON M.D. Performed By: #### G LULS ####Point of Care testing, Glucose [Mass/Vol] 94 mg/dL Normal [facility] Comment on above: Result Comment: [place] [facility] Glucose Reference Range is dependent on time and content of last meal. Glucose of more than 200 mg/dL in a nonstressed, ambulatory subject supports the diagnosis of Diabetes Mellitus. Performed By: #### G LULS ####Point of Care testing, Glucose [Mass/Vol] 157 mg/dL Normal [facility] Comment on above: Result Comment: [place] [facility] Glucose Reference Range is dependent on time and content of last meal. Glucose of more than 200 mg/dL in a nonstressed, ambulatory subject supports the diagnosis of Diabetes Mellitus.PERFORMED BY:[place] [address] [place], [place] [phone] MEDICAL DIRECTORRAMEZ LARSON M.D. Performed By: #### G LULS ####Point of Care testing, MR head/brain wo conon 04-04 MR head/brain wo con Normal [facility] No Panel InformationOrdered By: Gary Anguianor on 04-04-2023 Bedside Glucose Comment Glu2: cleaned meter [facility] Protein [Mass/volume] in Ser um or PlasmaOrdered By: Gary Crabtreeomar on 04-04-2023 Protein [Mass/Vol] 6.7 g/dL Normal 6.4-8.9 [facility] Comment on above: Performed By: #### C MP ####[facility] [id number] [place] [address] [facility] Serum globulin measurement b y calculation (mass/volume)Ordered By: Obwendy Crabtreeomar on 04-04-2023 Globulin (S) [Mass/Vol] 3.3 g/dL Normal [facility] Comment on above: Performed By: #### C MP ####[address] [address] [facility] Serum or plasma albumin/glob ulin mass ratioOrdered By: Gary Almaguer on 04-04-2023 Albumin/Globulin [Mass ratio] 1.0 {ratio} Normal [facility] Comment on above: Performed By: #### C MP ####[address] [address] [facility] Comprehensive Metabolic Pane eliseo 04-03-2023 Albumin [Mass/Vol] 3.0 g/dL Low 3.5-5.7 [facility] Comment on above: Performed By: #### C KATHRIN, CMP ####[place] [id number] [facility] Albumin/Globulin [Mass ratio] 1.0 {ratio} Normal [facility] Comment on above: Performed By: #### C KATHRIN, CMP ####[place] [id number] [facility] ALP [Catalytic activity/Vol] 186 U/L High 34-104 [facility] Comment on above: Performed By: #### C KATHRIN, CMP ####[place] [id number] [facility] ALT [Catalytic activity/Vol] 6 U/L Low 7-52 [facility] Comment on above: Performed By: #### C KATHRIN, CMP ####[place] [id number] [facility] Anion gap [Moles/Vol] 14.5 mmol/L Normal 6.0-15.0 [facility] Comment on above: Performed By: #### C BCSERAFIN, CMP ####[place] [id number] [facility] AST [Catalytic activity/Vol] 13 U/L Normal 13-39 [facility] Comment on above: Performed By: #### C BCNO, CMP ####[place] [id number] [facility] Bilirubin [Mass/Vol] 0.3 mg/dL Normal 0.3-1.0 [facility] Comment on above: Performed By: #### C BCNO, CMP ####[address] [address] [facility] Calcium [Mass/Vol] 8.5 mg/dL Low 8.6-10.3 [facility] Comment on above: Performed By: #### C BCNO, CMP ####[address] [address] [facility] Chloride [Moles/Vol] 94 mmol/L Low 98-107 [facility] Comment on above: Performed By: #### C BCSERAFIN, CMP ####[place] [id number] [facility] CO2 [Moles/Vol] 26.2 mmol/L Normal 21.0-31.0 [facility] Comment on above: Performed By: #### C KATHRIN, CMP ####[place] [id number] [facility] Creatinine [Mass/Vol] 4.28 mg/dL Significan t change up 0.60-1.20 [facility] Comment on above: Performed By: #### C KATHRIN, CMP ####[place] [id number] [facility] Creatinine Clr Calc Pharmacy 9.66 Normal [facility] Comment on above: Result Comment: PERF ORMED BY:[address] [place], [place] [phone] MEDICAL DIRECTORRAMEZ LARSON M.D. Performed By: #### C KATHRIN, CMP ####[place] [id number] [facility] GFR/1.73 sq M.predicted MDRD (S/P/Bld) [Vol rate/Area] 10.199 mL/min/{1.73_m2} Normal [facility] Comment on above: Performed By: #### C BCSERAFIN, CMP ####[place] [id number] [facility] Globulin (S) [Mass/Vol] 2.9 g/dL Normal [facility] Comment on above: Performed By: #### C BCSERAFIN, CMP ####[address] Glucose [Mass/Vol] 148 mg/dL High 70-100 [facility] Comment on above: Result Comment: [facility] Glucose Reference Range is dependent on time and content of last meal. Glucose of more than 200 mg/dL in a nonstressed, ambulatory subject supports the diagnosis of Diabetes Mellitus. ADA recommended reference range Performed By: #### C KATHRIN, CMP ####[address] Potassium [Moles/Vol] 4.7 mmol/L Normal 3.5-5.1 [facility] Comment on above: Performed By: #### Tara PINON, CMP ####[address] Protein [Mass/Vol] 5.9 g/dL Low 6.4-8.9 [facility] Comment on above: Performed By: #### Tara PINON, CMP ####[address] Sodium [Moles/Vol] 130 mmol/L Low 136-145 [facility] Comment on above: Performed By: #### Tara PINON, CMP ####[address] Urea nitrogen [Mass/Vol] 38 mg/dL Significant change up 7-25 [facility] Comment on above: Performed By: #### Tara PINON, CMP ####[address] Erythrocyte distribution wid th [Ratio] by Automated countOrdered By: Obyumikodabrendon Crabtreeomar on 04-03-2023 Erythrocyte distribution width (RBC) [Ratio] 19.9 % High 11.9-15.3 [facility] Comment on above: Performed By: #### C KATHRIN, CMP ####[address] Erythrocytes [#/volume] in B lood by Automated countOrdered By: Obyumikodah Daromar on 04-03-2023 RBC (Bld) [#/Vol] 3.40 10*6/uL Low 3.60-5.00 [facility] Comment on above: Performed By: #### C BCNO, [facility] ####[facility] continuecare hospital at universitykelinWO[place], [place] [address] [facility] Glucose Poct Glucometerson 0 2 Glucose [Mass/Vol] 204 mg/dL Normal [facility] Comment on above: Result Comment: [facility] Glucose Reference Range is dependent on time and content of last meal. Glucose of more than 200 mg/dL in a nonstressed, ambulatory subject supports the diagnosis of Diabetes Mellitus.PERFORMED BY:[address] [place], [place] [phone] MEDICAL DIRECTORRAMEZ LARSON M.D. Performed By: #### G LULS ####Point of Care testing, Glucose [Mass/Vol] 237 mg/dL Normal [facility] Comment on above: Result Comment: [facility] Glucose Reference Range is dependent on time and content of last meal. Glucose of more than 200 mg/dL in a nonstressed, ambulatory subject supports the diagnosis of Diabetes Mellitus.PERFORMED BY:[address] [place], [place] [phone] MEDICAL MAJOR LARSON M.D. Performed By: #### G LULS ####Point of Care testing, Glucose [Mass/Vol] 239 mg/dL Normal [facility] Comment on above: Result Comment: [facility] Glucose Reference Range is dependent on time and content of last meal. Glucose of more than 200 mg/dL in a nonstressed, ambulatory subject supports the diagnosis of Diabetes Mellitus.PERFORMED BY:[address] [place], [place] [phone] MEDICAL MAJOR LARSON M.D. Performed By: #### G LULS ####Point of Care testing, Glucose [Mass/Vol] 162 mg/dL Normal [facility] Comment on above: Result Comment: [facility] Glucose Reference Range is dependent on time and content of last meal. Glucose of more than 200 mg/dL in a nonstressed, ambulatory subject supports the diagnosis of Diabetes Mellitus.PERFORMED BY:[address] [place], [place] [phone] MEDICAL DIRECTORRAMEZ LARSON M.D. Performed By: #### G DAVID ####Point of Care testing, Glucose [Mass/Vol] 246 mg/dL Normal [facility] Comment on above: Result Comment: [facility] Glucose Reference Range is dependent on time and content of last meal. Glucose of more than 200 mg/dL in a nonstressed, ambulatory subject supports the diagnosis of Diabetes Mellitus.PERFORMED BY:[address] [place], [place] [phone] MEDICAL DIRECTORRAMEZ LARSON M.D. Performed By: #### G DAVID ####Point of Care testing, Hematocrit [Volume Fraction] of Blood by Automated countOrdered By: Gary Anguianor on 04-03-2023 Hematocrit (Bld) [Volume fraction] 29.2 % Low 34.0-46.4 [facility] Comment on above: Performed By: #### C KATHRIN, CMP ####[place] [id number] [facility] Hemoglobin [Mass/volume] in BloodOrdered By: Gary Crabtreeomar on 04-03-2023 Hemoglobin (Bld) [Mass/Vol] 9.2 g/dL Low 11.8-15.4 [facility] Comment on above: Performed By: #### C KATHRIN, CMP ####[place] [id number] [facility] Hemogram CBC Without Diffon 04-03-2023 Mean Corpuscular HGB Conc 31.6 g/dL Low 32.0-35.0 [facility] Comment on above: Performed By: #### C KATHRIN, CMP ####[place] [id number] [facility] WBC (Bld) [#/Vol] 6.9 10*3/uL Normal 3.8-11.6 [facility] Comment on above: Performed By: #### C KATHRIN, CMP ####[place] [id number] [facility] Leukocytes [#/volume] correc tr for nucleated erythrocytes in Blood by Automated counOrdered By: Ethandabrendon Crabtreeomar on 04-03-2023 WBC corrected for nucl RBC Auto (Bld) [#/Vol] 6.9 10*3/uL 3.8-11.6 [facility] MCH [Entitic mass] by Automa tr countOrdered By: Ethandabrendon Crabtreeomar on 04-03-2023 MCH (RBC) [Entitic mass] 27.1 pg Normal 24.7-34.3 [facility] Comment on above: Performed By: #### C KATHRIN, CMP ####[address] MCHC Auto (RBC) [Mass/Vol]Or dered By: Ethandabrendon Crabtreeomar on 04-03-2023 MCHC (RBC) [Mass/Vol] 31.6 g/dL 32.0-35.0 [facility] MCV [Entitic volume] by Auto mated countOrdered By: Gary Anguianor on 04-03-2023 MCV (RBC) [Entitic vol] 85.8 fL Normal 80-[address] [facility] Comment on above: Performed By: #### C KATHRIN, CMP ####[place] [id number] [facility] Platelet mean volume [Entiti c volume] in Blood by Automated countOrdered By: Gary Almaguer on 04-03-2023 Platelet mean volume (Bld) [Entitic vol] 7.8 fL Normal 6.3-10.7 [facility] Comment on above: Result Comment: PERF ORMED BY:[address] [place], [place] [phone] MEDICAL DIRECTORRAMEZ LARSON M.D. Performed By: #### C KATHRIN, CMP ####[place] [id number] [facility] Platelets [#/volume] in Bloo d by Automated countOrdered By: Gary Almaguer on 04-03-2023 Platelets (Bld) [#/Vol] 250 10*3/uL Normal 150-450 [facility] Comment on above: Performed By: #### C BCNO, CMP ####[place] [id number] [facility] US carotid doppler BIon 03-14 US carotid doppler BI Normal [facility] Automated basophil %Ordered By: Teresa Pagan on 04-02-2023 Basophils/100 WBC (Bld) 0.7 % Normal . F [facility] Comment on above: Performed By: #### C BC, BMP ####[address] Automated basophil countOrde red By: Teresa Pagan on 04-02-2023 Basophils (Bld) [#/Vol] 0.0 10*3/uL Normal 0.0-0.2 [facility] Comment on above: Result Comment: PERF ORMED BY:[address] [place], [place] [phone] MEDICAL DIRECTORRAMEZ LARSON M.D. Performed By: #### C BC, BMP ####[address] Automated blood monocyte cou ntOrdered By: Teresa Pagan on 04-02-2023 Monocytes (Bld) [#/Vol] 0.7 10*3/uL Normal 0.0-0.8 [facility] Comment on above: Performed By: #### C BC, BMP ####[address] Automated eosinophil %Ordere d By: Teresa Pagan on 04-02-2023 Eosinophils/100 WBC (Bld) 4.6 % Normal . [facility] Comment on above: Performed By: #### C BC, BMP ####[address] Automated eosinophil countOr dered By: Teresa Pagan on 04-02-2023 Eosinophils (Bld) [#/Vol] 0.3 10*3/uL Normal 0.0-0.45 [facility] Comment on above: Performed By: #### C BC, BMP ####[place] [id number] [facility] Automated monocyte %Ordered By: Teresa Pagan on 04-02-2023 Monocytes/100 WBC (Bld) 9.9 % Normal . F [facility] Comment on above: Performed By: #### C BC, BMP ####[place] [id number] [facility] Automated neutrophil %Ordere d By: Teresa Pagan on 04-02-2023 Neutrophils/100 WBC (Bld) 69.6 % Normal . [facility] Comment on above: Performed By: #### C BC, BMP ####[place] [id number] [facility] Basic Metabolic Panelon 03-14 Anion gap [Moles/Vol] 18.2 mmol/L High 6.0-15.0 e [facility] Comment on above: Performed By: #### C BC, BMP ####[place] [id number] [facility] Calcium [Mass/Vol] 9.6 mg/dL Normal 8.6-10.3 [facility] Comment on above: Performed By: #### C BC, BMP ####[place] [id number] [facility] Chloride [Moles/Vol] 93 mmol/L Low 98-107 [facility] Comment on above: Performed By: #### C BC, BMP ####[place] [id number] [facility] CO2 [Moles/Vol] 23.5 mmol/L Normal 21.0-31.0 [facility] Comment on above: Performed By: #### C BC, BMP ####[place] [id number] [facility] Creatinine [Mass/Vol] 6.31 mg/dL High 0.60-1.20 [facility] Comment on above: Performed By: #### C BC, BMP ####[place] [address] [place] [address] [facility] Creatinine Clr Calc Pharmacy 6.55 Normal [facility] Comment on above: Result Comment: PERF ORMED BY:[address] [place], [place] [phone] MEDICAL MAJOR LARSON M.D. Performed By: #### C BC, BMP ####[place] [id number] [facility] GFR/1.73 sq M.predicted MDRD (S/P/Bld) [Vol rate/Area] 6.401 mL/min/{1.73_m2} Normal [facility] Comment on above: Performed By: #### C BC, BMP ####[place] [id number] [facility] Glucose [Mass/Vol] 119 mg/dL High 70-100 [facility] Comment on above: Result Comment: [place] Glucose Reference Range is dependent on time and content of last meal. Glucose of more than 200 mg/dL in a nonstressed, ambulatory subject supports the diagnosis of Diabetes Mellitus. ADA recommended reference range Performed By: #### C BC, BMP ####[place] [id number] [facility] Potassium [Moles/Vol] 5.7 mmol/L High 3.5-5.1 [facility] Comment on above: Performed By: #### C BC, BMP ####[place] [id number] [facility] Sodium [Moles/Vol] 129 mmol/L Low 136-145 [facility] Comment on above: Performed By: #### C BC, BMP ####[place] [id number] [facility] Urea nitrogen [Mass/Vol] 70 mg/dL High 7-25 [facility] Comment on above: Performed By: #### C BC, BMP ####[place] [id number] [facility] CT angio neckon 04-02-2023 CT angio neck Normal [facility] Complete Blood Count Auto Di ffon 04-02-2023 Erythrocyte distribution width (RBC) [Ratio] 20.0 % High 11.9-15.3 [facility] Comment on above: Performed By: #### C BC, BMP ####[address] Hematocrit (Bld) [Volume fraction] 34.5 % Normal 34.0-46.4 [facility] Comment on above: Performed By: #### C BC, BMP ####[address] Hemoglobin (Bld) [Mass/Vol] 10.7 g/dL Low 11.8-15.4 [facility] Comment on above: Performed By: #### C BC, BMP ####[place] [id number] [facility] MCH (RBC) [Entitic mass] 26.8 pg Normal 24.7-34.3 [facility] Comment on above: Performed By: #### C BC, BMP ####[place] [id number] [facility] MCV (RBC) [Entitic vol] 86.5 fL Normal 80-100 T [facility] Comment on above: Performed By: #### C BC, BMP ####[place] [id number] [facility] Mean Corpuscular HGB Conc 30.9 g/dL Low 32.0-35.0 [facility] Comment on above: Performed By: #### C BC, BMP ####[place] [id number] [facility] NRBC% 0.0 /100{WBC} Normal 0-0.5 [facility] Comment on above: Performed By: #### C BC, BMP ####[place] [id number] [facility] Platelet mean volume (Bld) [Entitic vol] 7.8 fL Normal 6.3-10.7 [facility] Comment on above: Performed By: #### C BC, BMP ####[place] [address] [place] [address] [facility] Platelets (Bld) [#/Vol] 278 10*3/uL Normal 150-450 [facility] Comment on above: Performed By: #### C BC, BMP ####[place] [address] [place] [address] [facility] RBC (Bld) [#/Vol] 3.98 10*6/uL Normal 3.60-5.00 [facility] Comment on above: Performed By: #### C REBECCA, BMP ####[address] [address] [facility] Glucose Poct Glucometerson 0 04-02-2023 Glucose [Mass/Vol] 157 mg/dL Normal [facility] Comment on above: Result Comment: [facility] Glucose Reference Range is dependent on time and content of last meal. Glucose of more than 200 mg/dL in a nonstressed, ambulatory subject supports the diagnosis of Diabetes Mellitus.PERFORMED BY:[address] [place], [place] [phone] MEDICAL DIRECTORRAMEZ LARSON M.D. Performed By: #### G MARYLS ####Point of Care testing, Glucose [Mass/Vol] 126 mg/dL Normal [facility] Comment on above: Result Comment: [facility] Glucose Reference Range is dependent on time and content of last meal. Glucose of more than 200 mg/dL in a nonstressed, ambulatory subject supports the diagnosis of Diabetes Mellitus.PERFORMED BY:[address] [place], [place] [phone] MEDICAL MAJOR LARSON M.D. Performed By: #### G LULS ####Point of Care testing, Glucose [Mass/Vol] 119 mg/dL Normal [facility] Comment on above: Result Comment: [facility] Glucose Reference Range is dependent on time and content of last meal. Glucose of more than 200 mg/dL in a nonstressed, ambulatory subject supports the diagnosis of Diabetes Mellitus.PERFORMED BY:[address] [place], [place] [phone] MEDICAL MAJOR LARSON M.D. Performed By: #### G LULS ####Point of Care testing, Glucose [Mass/Vol] 119 mg/dL Normal [facility] Comment on above: Result Comment: [place] om Glucose Reference Range is dependent on time and content of last meal. Glucose of more than 200 mg/dL in a nonstressed, ambulatory subject supports the diagnosis of Diabetes Mellitus.PERFORMED BY:[place] [address] [address] [place] [phone] MEDICAL MAJOR LARSON M.D. Performed By: #### G LULS ####Point of Care testing, Commemt1 Glu2: Cleaned Meter Normal [facility] Comment on above: Result Comment: PERF ORMED BY:[address] [place], [place] [phone] MEDICAL MAJOR LARSON M.D. Performed By: #### G LULS ####Point of Care testing, Glucose [Mass/Vol] 150 mg/dL Normal [facility] Comment on above: Result Comment: [place] om Glucose Reference Range is dependent on time and content of last meal. Glucose of more than 200 mg/dL in a nonstressed, ambulatory subject supports the diagnosis of Diabetes Mellitus. Performed By: #### G LULS ####Point of Care testing, Glucose [Mass/Vol] 131 mg/dL Normal [facility] Comment on above: Result Comment: [place] om Glucose Reference Range is dependent on time and content of last meal. Glucose of more than 200 mg/dL in a nonstressed, ambulatory subject supports the diagnosis of Diabetes Mellitus.PERFORMED BY:[address] [place], [place] [phone] MEDICAL MAJOR LARSON M.D. Performed By: #### G LULS ####Point of Care testing, Glucose [Mass/Vol] 119 mg/dL Normal [facility] Comment on above: Result Comment: [place] om Glucose Reference Range is dependent on time and content of last meal. Glucose of more than 200 mg/dL in a nonstressed, ambulatory subject supports the diagnosis of Diabetes Mellitus.PERFORMED BY:[place] [address] [place] [phone] MEDICAL MAJOR LARSON M.D. Performed By: #### G LULS ####Point of Care testing, Commemt1 Glu2: Cleaned Meter Normal [facility] Comment on above: Result Comment: PERF ORMED BY:[address] [place], [place] [phone] MEDICAL MAJOR LARSON M.D. Performed By: #### G LULS ####Point of Care testing, Glucose [Mass/Vol] 114 mg/dL Normal [facility] Comment on above: Result Comment: [place] om Glucose Reference Range is dependent on time and content of last meal. Glucose of more than 200 mg/dL in a nonstressed, ambulatory subject supports the diagnosis of Diabetes Mellitus. Performed By: #### G LULS ####Point of Care testing, Glucose [Mass/Vol] 108 mg/dL Normal [facility] Comment on above: Result Comment: [place] om Glucose Reference Range is dependent on time and content of last meal. Glucose of more than 200 mg/dL in a nonstressed, ambulatory subject supports the diagnosis of Diabetes Mellitus.PERFORMED BY:[address] [place], [place] [phone] MEDICAL MAJOR LARSON M.D. Performed By: #### G LULS ####Point of Care testing, Glucose [Mass/Vol] 110 mg/dL Normal [facility] Comment on above: Result Comment: [place] om Glucose Reference Range is dependent on time and content of last meal. Glucose of more than 200 mg/dL in a nonstressed, ambulatory subject supports the diagnosis of Diabetes Mellitus.PERFORMED BY:[place] [address] [place] [place], [place] [phone] BARRETT LARSON M.D. Performed By: #### G LULS ####Point of Care testing, Leukocytes [#/volume] in Blo od by Automated countOrdered By: Teresa Pagan on 04-02-2023 WBC (Bld) [#/Vol] 7.1 10*3/uL Normal 3.8-11.6 [facility] Comment on above: Performed By: #### C REBECCA, BMP ####[place] [address] [place] [id number] [facility] Lymphocytes [#/volume] in Bl ood by Automated countOrdered By: Teresa Pagan on 04-02-2023 Lymphocytes (Bld) [#/Vol] 1.1 10*3/uL Normal 1.00-4.8 [facility] Comment on above: Performed By: #### C REBECCA, BMP ####[place] [id number] [facility] Lymphocytes/100 leukocytes i n Blood by Automated countOrdered By: Teresa Pagan on 04-02-2023 Lymphocytes/100 WBC (Bld) 15.2 % Normal . [facility] Comment on above: Performed By: #### C REBECCA, BMP ####[place] [id number] [facility] Neutrophils [#/volume] in Bl ood by Automated countOrdered By: Teresa Pagan on 04-02-2023 Neutrophils (Bld) [#/Vol] 4.9 10*3/uL Normal 1.8-7.7 [facility] Comment on above: Performed By: #### Tara FERNANDEZ, BMP ####[place] [id number] [facility] Nucleated erythrocytes [Pres ence] in Blood by Automated countOrdered By: Teresa Pagan on 04-02-2023 Nucleated RBC Auto Ql (Bld) 0.0 /100{WBC} 0-0.5 [facility] Activated partial thrombopla stin time (aPTT) in platelet poor plasma by coagulation aOrdered By: Taco Freed on 04-01-2023 aPTT Coag (PPP) [Time] 35.7 s 25.1-36.5 [facility] Comment on above: A hematocrit value g reater than 55% may lead to inaccurate results in coagulation testing. Patients having hematocrit values >55% require a special collection tube for coagulation studies. Please contact the laboratory at [phone] for redraw instructions. Alanine aminotransferase [En zymatic activity/volume] in Serum or PlasmaOrdered By: Taco Freed on 04-01-2023 ALT [Catalytic activity/Vol] 9 U/L Normal 7-52 [facility] Comment on above: Performed By: #### B MATERIAL LOADER, HEPATIC, CBC, PTT, PT, CK, HS TROP, BMP ####[place] [address] Albumin [Mass/volume] in Ser um or Plasma by Bromocresol green (BCG) dye binding methoOrdered By: Taco Freed on 04-01-2023 Albumin BCG dye [Mass/Vol] 3.5 g/dL 3.5-5.7 [facility] Alkaline phosphatase [Enzyma tic activity/volume] in Serum or PlasmaOrdered By: Taco Freed on 04-01-2023 ALP [Catalytic activity/Vol] 216 U/L High 34-104 [facility] Comment on above: Performed By: #### B MATERIAL LOADER, HEPATIC, CBC, PTT, PT, CK, HS TROP, BMP ####[address] Aspartate aminotransferase [ Enzymatic activity/volume] in Serum or PlasmaOrdered By: Taco Freed on 04-01-2023 AST [Catalytic activity/Vol] 12 U/L Low 13-39 [facility] Comment on above: Performed By: #### B MATERIAL LOADER, HEPATIC, CBC, PTT, PT, CK, HS TROP, BMP ####[place] [id number] [facility] Automated basophil %Ordered By: Taco Freed on 04-01-2023 Basophils/100 WBC (Bld) 0.9 % Normal . [facility] Comment on above: Performed By: #### B MATERIAL LOADER, HEPATIC, CBC, PTT, PT, CK, HS TROP, BMP ####[address] [address] [facility] Automated basophil countOrde red By: Taco Freed on 02-20-2024 Basophils (Bld) [#/Vol] 0.1 10*3/uL Normal 0.0-0.2 [facility] Comment on above: Result Comment: PERF ORMED BY:[address] [place] [phone] MEDICAL DIRECTORRAMEZ LARSON M.D. Performed By: #### B MATERIAL LOADER, HEPATIC, CBC, PTT, PT, CK, HS TROP, BMP ####[address] Automated blood monocyte cou ntOrdered By: Taco Freed on 04-01-2023 Monocytes (Bld) [#/Vol] 0.8 10*3/uL Normal 0.0-0.8 [facility] Comment on above: Performed By: #### B MATERIAL LOADER, HEPATIC, CBC, PTT, PT, CK, HS TROP, BMP ####[address] Automated eosinophil %Ordere d By: Taco Freed on 04-01-2023 Eosinophils/100 WBC (Bld) 5.5 % Normal . [facility] Comment on above: Performed By: #### B MATERIAL LOADER, HEPATIC, CBC, PTT, PT, CK, HS TROP, BMP ####[address] Automated eosinophil countOr dered By: Taco Freed on 04-01-2023 Eosinophils (Bld) [#/Vol] 0.5 10*3/uL High 0.0-0.45 [facility] Comment on above: Performed By: #### B MATERIAL LOADER, HEPATIC, CBC, PTT, PT, CK, HS TROP, BMP ####[address] Automated monocyte %Ordered By: Taco Freed on 04-01-2023 Monocytes/100 WBC (Bld) 9.5 % Normal . F [facility] Comment on above: Performed By: #### B MATERIAL LOADER, HEPATIC, CBC, PTT, PT, CK, HS TROP, BMP ####[address] Automated neutrophil %Ordere d By: Taco Freed on 04-01-2023 Neutrophils/100 WBC (Bld) 68.6 % Normal . [facility] Comment on above: Performed By: #### B MATERIAL LOADER, HEPATIC, CBC, PTT, PT, CK, HS TROP, BMP ####[place] [address] [place] [id number] [facility] BNP ser/plasOrdered By: Mk Freed on 04-01-2023 Natriuretic peptide B (Bld) [Mass/Vol] 1382.0 pg/mL High 5-100 [facility] Comment on above: Result Comment: PERF ORMED BY:[address] [place], [place] [phone] MEDICAL DIRECTORRAMEZ LARSON M.D. Performed By: #### B MATERIAL LOADER, HEPATIC, CBC, PTT, PT, CK, HS TROP, BMP ####[place] [id number] [facility] Basic Metabolic Panelon 03-14 Creatinine Clr Calc Pharmacy 6.56 Normal [facility] Comment on above: Result Comment: PERF ORMED BY:[place] [address] [place], [place] [phone] MEDICAL DIRECTORRAMEZ LARSON M.D. Performed By: #### B MATERIAL LOADER, HEPATIC, CBC, PTT, PT, CK, HS TROP, BMP ####[place] [id number] [facility] GFR/1.73 sq M.predicted MDRD (S/P/Bld) [Vol rate/Area] 6.414 mL/min/{1.73_m2} Normal [facility] Comment on above: Performed By: #### B MATERIAL LOADER, HEPATIC, CBC, PTT, PT, CK, HS TROP, BMP ####[place] [id number] [facility] Bilirubin.direct [Mass/volum e] in Serum or PlasmaOrdered By: Taco Freed on 04-01-2023 Bilirubin.direct [Mass/Vol] 0.00 mg/dL 0.03-0.18 [facility] Comment on above: If the DBIL is less than 0.1, IBIL is not able to becalculated. Bilirubin.total [Mass/volume ] in Serum or PlasmaOrdered By: Taco Freed on 04-01-2023 Bilirubin [Mass/Vol] 0.4 mg/dL Normal 0.3-1.0 [facility] Comment on above: Performed By: #### B MATERIAL LOADER, HEPATIC, CBC, PTT, PT, CK, HS TROP, BMP ####[facility] [id number] COVID CepheidOrdered By: Edison Freed on 04-01-2023 SARS-CoV-2 (COVID-19) Ab IA Ql Negative Negative [facility] Comment on above: This is a duplicate Cepheid Xpert Xpress CoV-2/Flu/RSV Plus RNA by RT-PCR result to be used for statistical tracking purpose only. SARS-CoV-2 (COVID-19) RNA [place]+probe Ql (Unsp spec) Normal [facility] Comment on above: Performed By: #### C EPHEID NEG, COVID19 FLU RSV ####[place] [address] SARS-CoV-2 (COVID-19) RNA MADISON+probe Ql (Unsp spec) [facility] CT head/brain wo conon 04-01 CT head/brain wo con Normal [facility] Calcium [Mass/volume] in Ser um or PlasmaOrdered By: Taco Freed on 04-01-2023 Calcium [Mass/Vol] 9.9 mg/dL Normal 8.6-10.3 [facility] Comment on above: Performed By: #### B MATERIAL LOADER, HEPATIC, CBC, PTT, PT, CK, HS TROP, BMP ####[facility] Capillary blood glucose eugenie urement by glucometer (mass/volume)Ordered By: Teresa Pagan on 04-01-2023 Glucose [Mass/Vol] 88 mg/dL Normal [facility] Comment on above: Random Glucose Refer ence Range is dependent on time and content of last meal. Glucose of more than 200 mg/dL in a nonstressed, ambulatory subject supports the diagnosis of Diabetes Mellitus. Result Comment: [facility] Glucose Reference Range is dependent on time and content of last meal. Glucose of more than 200 mg/dL in a nonstressed, ambulatory subject supports the diagnosis of Diabetes Mellitus. Performed By: #### G DAVID ####Point of Care testing, Carbon dioxide, total [Moles /volume] in Serum or PlasmaOrdered By: Taco Freed on 04-01-2023 CO2 [Moles/Vol] 27.6 mmol/L Normal 21.0-31.0 [facility] Comment on above: Performed By: #### B MATERIAL LOADER, HEPATIC, CBC, PTT, PT, CK, HS TROP, BMP ####[place] [address] [place] [id number] [facility] Cepheid COVID PCR Negativeon 04-01-2023 SARS-CoV-2 (COVID-19) RNA MADISON+probe Ql (Unsp spec) Negative Normal Negative [facility] Comment on above: Result Comment: This is a duplicate [employer] Xpert Xpress CoV-2/Flu/RSV Plus RNA by RT-PCR result to be used for statistical tracking purpose only.PERFORMED BY:[address] [place], [place] [phone] MEDICAL DIRECTORRAMEZ LARSON M.D. Performed By: #### C EPHEID NEG, COVID19 FLU RSV ####[place] [address] [place] [id number] [facility] Chloride [Moles/volume] in S steffanie or PlasmaOrdered By: Taco Freed on 04-01-2023 Chloride [Moles/Vol] 92 mmol/L Low 98-107 [facility] Comment on above: Performed By: #### B MATERIAL LOADER, HEPATIC, CBC, PTT, PT, CK, HS TROP, BMP ####[place] [id number] [facility] Complete Blood Count Auto Di ffon 04-01-2023 Mean Corpuscular HGB Conc 30.8 g/dL Low 32.0-35.0 [facility] Comment on above: Performed By: #### B MATERIAL LOADER, HEPATIC, CBC, PTT, PT, CK, HS TROP, BMP ####[address] Monocytes/100 WBC (Bld) 23.82 % High 0.00-20.00 [facility] Comment on above: Result Comment: For adults in ED, MDW > 20.0 may be associated with a higher risk of sepsis during the first 12 hrs of hospital admission Performed By: #### B MATERIAL LOADER, HEPATIC, CBC, PTT, PT, CK, HS TROP, BMP ####[place] [address] [place] [id number] [facility] NRBC% 0.0 /100{WBC} Normal 0-0.5 [facility] Comment on above: Performed By: #### B MATERIAL LOADER, HEPATIC, CBC, PTT, PT, CK, HS TROP, BMP ####[address] Creatine kinase [Enzymatic a ctivity/volume] in Serum or PlasmaOrdered By: Taco Freed on 04-01-2023 CK [Catalytic activity/Vol] 31 U/L Normal 30-223 [facility] Comment on above: Performed By: #### B MATERIAL LOADER, HEPATIC, CBC, PTT, PT, CK, HS TROP, BMP ####[place] [id number] [facility] Creatinine [Mass/volume] in Serum or PlasmaOrdered By: Taco Freed on 04-01-2023 Creatinine [Mass/Vol] 6.30 mg/dL High 0.60-1.20 [facility] Comment on above: Performed By: #### B MATERIAL LOADER, HEPATIC, CBC, PTT, PT, CK, HS TROP, BMP ####[place] [id number] [facility] ECG 12 lead ECGon 04-01-2023 ECG 12 lead ECG Normal [facility] Erythrocyte distribution wid th [Ratio] by Automated countOrdered By: Taco Freed on 04-01-2023 Erythrocyte distribution width (RBC) [Ratio] 19.9 % High 11.9-15.3 [facility] Comment on above: Performed By: #### B MATERIAL LOADER, HEPATIC, CBC, PTT, PT, CK, HS TROP, BMP ####[facility] [place] [address] [facility] Erythrocytes [#/volume] in B lood by Automated countOrdered By: Taco Freed on 04-01-2023 RBC (Bld) [#/Vol] 3.82 10*6/uL Normal 3.60-5.00 [facility] Comment on above: Performed By: #### B MATERIAL LOADER, HEPATIC, CBC, PTT, PT, CK, HS TROP, BMP ####[facility] [place] [address] [facility] Glucose Poct Glucometerson 0 04-01-2023 Glucose [Mass/Vol] 147 mg/dL Normal [facility] Comment on above: Result Comment: [place] Glucose Reference Range is dependent on time and content of last meal. Glucose of more than 200 mg/dL in a nonstressed, ambulatory subject supports the diagnosis of Diabetes Mellitus.PERFORMED BY:[place] [address] [place], [place] [phone] MEDICAL DIRECTORRAMEZ LARSON M.D. Performed By: #### G LULS ####Point of Care testing, Commemt1 Normal [facility] Comment on above: Result Comment: Glu2 : WILL NOTIFY DR/OLIVERERFORMED BY:[place] [address] [place], [place] [phone] MEDICAL DIRECTORRAMEZ LARSON M.D. Performed By: #### G LULS ####Point of Care testing, Glucose [Mass/Vol] 59 mg/dL Off scale low [facility] Comment on above: Result Comment: [place] om Glucose Reference Range is dependent on time and content of last meal. Glucose of more than 200 mg/dL in a nonstressed, ambulatory subject supports the diagnosis of Diabetes Mellitus. Performed By: #### G LULS ####Point of Care testing, Commemt1 Glu2: Cleaned Meter Normal [facility] Comment on above: Result Comment: PERF ORMED BY:[place] [address] [place], [place] [phone] MEDICAL DIRECTORRAMEZ LARSON M.D. Performed By: #### G LULS ####Point of Care testing, Glucose [Mass/Vol] 152 mg/dL Normal [facility] Comment on above: Result Comment: [facility] Glucose Reference Range is dependent on time and content of last meal. Glucose of more than 200 mg/dL in a nonstressed, ambulatory subject supports the diagnosis of Diabetes Mellitus.PERFORMED BY:[address] [place], [place] [phone] MEDICAL DIRECTORRAMEZ LARSON M.D. Performed By: #### G LUANNITA ####Point of Care testing, Glucose [Mass/Vol] 126 mg/dL Normal [facility] Comment on above: Result Comment: [facility] Glucose Reference Range is dependent on time and content of last meal. Glucose of more than 200 mg/dL in a nonstressed, ambulatory subject supports the diagnosis of Diabetes Mellitus.PERFORMED BY:[address] [place], [place] [phone] MEDICAL DIRECTORRAMEZ LARSON M.D. Performed By: #### G DAVID ####Point of Care testing, Glucose [Mass/volume] in Ser um or PlasmaOrdered By: Taco Freed on 04-01-2023 Glucose [Mass/Vol] 142 mg/dL High 70-100 [facility] Comment on above: ADA recommended refe rence rangeRandom Glucose Reference Range is dependent on time and content of last meal. Glucose of more than 200 mg/dL in a nonstressed, ambulatory subject supports the diagnosis of Diabetes Mellitus. Result Comment: [facility] Glucose Reference Range is dependent on time and content of last meal. Glucose of more than 200 mg/dL in a nonstressed, ambulatory subject supports the diagnosis of Diabetes Mellitus. ADA recommended reference range Performed By: #### B MATERIAL LOADER, HEPATIC, CBC, PTT, PT, CK, HS TROP, BMP ####[address] [address] [facility] Hematocrit [Volume Fraction] of Blood by Automated countOrdered By: Taco Freed on 04-01-2023 Hematocrit (Bld) [Volume fraction] 33.1 % Low 34.0-46.4 [facility] Comment on above: Performed By: #### B MATERIAL LOADER, HEPATIC, CBC, PTT, PT, CK, HS TROP, BMP ####[address] Hemoglobin [Mass/volume] in BloodOrdered By: Taco Freed on 04-01-2023 Hemoglobin (Bld) [Mass/Vol] 10.2 g/dL Low 11.8-15.4 [facility] Comment on above: Performed By: #### B MATERIAL LOADER, HEPATIC, CBC, PTT, PT, CK, HS TROP, BMP ####[address] Hepatic Panelon 04-01-2023 Albumin [Mass/Vol] 3.5 g/dL Normal 3.5-5.7 [facility] Comment on above: Performed By: #### B MATERIAL LOADER, HEPATIC, CBC, PTT, PT, CK, HS TROP, BMP ####[address] Bilirubin,Indirect 0.4 mg/dL Normal [facility] Comment on above: Performed By: #### B MATERIAL LOADER, HEPATIC, CBC, PTT, PT, CK, HS TROP, BMP ####[address] Bilirubin.indirect [Mass/Vol] 0.00 mg/dL Low 0.03-0.18 [facility] Comment on above: Result Comment: If t he DBIL is less than 0.1, IBIL is not able to be calculated. Performed By: #### B MATERIAL LOADER, HEPATIC, CBC, PTT, PT, CK, HS TROP, BMP ####[address] INR in Platelet poor plasma by Coagulation assayOrdered By: Taco Freed on 04-01-2023 INR Coag (PPP) [Relative time] 1.0 {INR} Normal [facility] Comment on above: INR Therapeutic [...] valves: 3 - 4.5 Performed By: #### B MATERIAL LOADER, HEPATIC, CBC, PTT, PT, CK, HS TROP, BMP ####[place] [address] Leukocytes [#/volume] correc tr for nucleated erythrocytes in Blood by Automated counOrdered By: Taco Freed on 04-01-2023 WBC corrected for nucl RBC Auto (Bld) [#/Vol] 8.8 10*3/uL 3.8-11.6 [facility] Leukocytes [#/volume] in Blo od by Automated countOrdered By: Taco Freed on 04-01-2023 WBC (Bld) [#/Vol] 8.8 10*3/uL Normal 3.8-11.6 [facility] Comment on above: Performed By: #### B MATERIAL LOADER, HEPATIC, CBC, PTT, PT, CK, HS TROP, BMP ####[address] Lymphocytes [#/volume] in Bl ood by Automated countOrdered By: Taco Freed on 04-01-2023 Lymphocytes (Bld) [#/Vol] 1.4 10*3/uL Normal 1.00-4.8 [facility] Comment on above: Performed By: #### B MATERIAL LOADER, HEPATIC, CBC, PTT, PT, CK, HS TROP, BMP ####[address] Lymphocytes/100 leukocytes i n Blood by Automated countOrdered By: Taco Freed on 04-01-2023 Lymphocytes/100 WBC (Bld) 15.5 % Normal . [facility] Comment on above: Performed By: #### B MATERIAL LOADER, HEPATIC, CBC, PTT, PT, CK, HS TROP, BMP ####[facility] [address] MCH [Entitic mass] by Automa tr countOrdered By: Taco Freed on 04-01-2023 MCH (RBC) [Entitic mass] 26.7 pg Normal 24.7-34.3 [facility] Comment on above: Performed By: #### B MATERIAL LOADER, HEPATIC, CBC, PTT, PT, CK, HS TROP, BMP ####[place] [address] MCHC Auto (RBC) [Mass/Vol]Or dered By: Taco Freed on 04-01-2023 MCHC (RBC) [Mass/Vol] 30.8 g/dL 32.0-35.0 [facility] MCV [Entitic volume] by Auto mated countOrdered By: Taco Freed on 04-01-2023 MCV (RBC) [Entitic vol] 86.7 fL Normal 80-[address] [facility] Comment on above: Performed By: #### B MATERIAL LOADER, HEPATIC, CBC, PTT, PT, CK, HS TROP, BMP ####[address] Monocyte distribution width [Entitic volume] in Blood by AutomatedOrdered By: Taco Freed on 04-01-2023 Monocyte distribution width Auto (Bld) [Entitic vol] 23.82 % 0.00-20.00 [facility] Comment on above: For adults in ED, MD W > 20.0 may be associated with a higher risk of sepsis during the first 12 hrs of hospital admission Neutrophils [#/volume] in Bl ood by Automated countOrdered By: Taco Freed on 04-01-2023 Neutrophils (Bld) [#/Vol] 6.1 10*3/uL Normal 1.8-7.7 [facility] Comment on above: Performed By: #### B MATERIAL LOADER, HEPATIC, CBC, PTT, PT, CK, HS TROP, BMP ####[facility] [address] [place] [address] [facility] No Panel InformationOrdered By: Teresa Pagan on 04-01-2023 Bedside Glucose Comment Glu2: cleaned meter [facility] No Panel InformationOrdered By: Taco Freed on 04-01-2023 Estimated GFR (CKD-EPI) 6.414 mL/Min [facility] Creatinine Clearance (Chem 6.56 [facility] Nucleated erythrocytes [Pres ence] in Blood by Automated countOrdered By: Taco Freed on 04-01-2023 Nucleated RBC Auto Ql (Bld) 0.0 /100{WBC} 0-0.5 [facility] Office Visiton 04-01-2023 Follow-up visit [id number] SteveWilbertkar Mc 1945 F Date Provider Department Center 04/01/2023 Dieter-NADEEM SANCHEZ CARD [facility] No family history on file Level of Service:55956 [place] OFFICE/OUTPATIENT ESTABLISHED LOW MDM 20 MIN Normal [facility] Partial Thromboplastin Timeo n 04-01-2023 aPTT Coag (Bld) [Time] 35.7 s Normal 25.1-36.5 Th e [facility] Comment on above: Result Comment: A he matocrit value greater than 55% may lead to inaccurate results in coagulation testing. Patients having hematocrit values >55% require a special collection tube for coagulation studies. Please contact the laboratory at [phone] for redraw instructions.PERFORMED BY:[facility] [place], [place] [phone] MEDICAL DIRECTORRAMEZ LARSON M.D. Performed By: #### B MATERIAL LOADER, HEPATIC, CBC, PTT, PT, CK, HS TROP, BMP ####[facility] [place] [address] [facility] Platelet mean volume [Entiti c volume] in Blood by Automated countOrdered By: Taco Freed on 04-01-2023 Platelet mean volume (Bld) [Entitic vol] 7.8 fL Normal 6.3-10.7 [facility] Comment on above: Performed By: #### B MATERIAL LOADER, HEPATIC, CBC, PTT, PT, CK, HS TROP, BMP ####[place] [address] [place] [address] [facility] Platelets [#/volume] in Bloo d by Automated countOrdered By: Taco Freed on 04-01-2023 Platelets (Bld) [#/Vol] 289 10*3/uL Normal 150-450 [facility] Comment on above: Performed By: #### B MATERIAL LOADER, HEPATIC, CBC, PTT, PT, CK, HS TROP, BMP ####[place] [address] [place] [address] [facility] Potassium [Moles/volume] in Serum or PlasmaOrdered By: Taco Freed on 04-01-2023 Potassium [Moles/Vol] 5.3 mmol/L High 3.5-5.1 [facility] Comment on above: Performed By: #### B MATERIAL LOADER, HEPATIC, CBC, PTT, PT, CK, HS TROP, BMP ####[place] [address] [place] [address] [facility] Protein [Mass/volume] in Ser um or PlasmaOrdered By: Taco Freed on 04-01-2023 Protein [Mass/Vol] 7.1 g/dL Normal 6.4-8.9 [facility] Comment on above: Performed By: #### B MATERIAL LOADER, HEPATIC, CBC, PTT, PT, CK, HS TROP, BMP ####[address] [address] [facility] Prothrombin time (PT)Ordered By: Taco Freed on 04-01-2023 PT Coag (PPP) [Time] 11.3 s Normal 9.0-12.9 [facility] Comment on above: A hematocrit value g reater than 55% may lead to inaccurate results in coagulation testing. Patients having hematocrit values >55% require a special collection tube for coagulation studies. Please contact the laboratory at [phone] for redraw instructions. Result Comment: A he matocrit value greater than 55% may lead to inaccurate results in coagulation testing. Patients having hematocrit values >55% require a special collection tube for coagulation studies. Please contact the laboratory at [phone] for redraw instructions. Performed By: #### B MATERIAL LOADER, HEPATIC, CBC, PTT, PT, CK, HS TROP, BMP ####[address] Serum globulin measurement b y calculation (mass/volume)Ordered By: Taco Freed on 04-01-2023 Globulin (S) [Mass/Vol] 3.6 g/dL Normal [facility] Comment on above: Performed By: #### B MATERIAL LOADER, HEPATIC, CBC, PTT, PT, CK, HS TROP, BMP ####[address] Serum or plasma albumin/glob ulin mass ratioOrdered By: Taco Freed on 04-01-2023 Albumin/Globulin [Mass ratio] 1.0 {ratio} Normal [facility] Comment on above: Performed By: #### B MATERIAL LOADER, HEPATIC, CBC, PTT, PT, CK, HS TROP, BMP ####[address] Serum or plasma anion gap de terminationOrdered By: Taco Freed on 04-01-2023 Anion gap [Moles/Vol] 16.7 mmol/L High 6.0-15.0 [facility] Comment on above: Performed By: #### B MATERIAL LOADER, HEPATIC, CBC, PTT, PT, CK, HS TROP, BMP ####[address] Serum or plasma non-glucuron idated bilirubin measurement (mass/volume)Ordered By: Taco Freed on 04-01-2023 Bilirubin.indirect [Mass/Vol] 0.4 mg/dL [facility] Sodium [Moles/volume] in Ser um or PlasmaOrdered By: Taco Freed on 04-01-2023 Sodium [Moles/Vol] 131 mmol/L Low 136-145 [facility] Comment on above: Performed By: #### B MATERIAL LOADER, HEPATIC, CBC, PTT, PT, CK, HS TROP, BMP ####[address] Troponin I High Sensitivityo n 04-01-2023 Troponin I High Sensitivity 15.3 pg/mL High 0.0-15.0 [facility] Comment on above: Result Comment: PERF ORMED BY:[address] [place], [place] [phone] MEDICAL DIRECTORRAMEZ LARSON M.D. Performed By: #### B MATERIAL LOADER, HEPATIC, CBC, PTT, PT, CK, HS TROP, BMP ####[facility] [place] [address] [facility] Troponin I.cardiac [Mass/vol ume] in Serum or Plasma by Detection limit <= 0.01 ng/Ordered By: Taco Freed on 04-01-2023 Troponin I.cardiac DL <= 0.01 ng/mL [Mass/Vol] 15.3 pg/mL 0.0-15.0 [facility] Urea nitrogen [Mass/volume] in Serum or PlasmaOrdered By: Taco Freed on 04-01-2023 Urea nitrogen [Mass/Vol] 69 mg/dL High 7-25 [facility] Comment on above: Performed By: #### B MATERIAL LOADER, HEPATIC, CBC, PTT, PT, CK, HS TROP, BMP ####[place] [address] [place] [address] [facility] XR chest 1V portableon 04-01 XR chest 1V portable Normal [facility] Nursing Assessment - Woundon 03-26-2023 Nursing Assessment - Wound [id number]#3.00TI FF Normal [facility] Nursing Note - Woundon 03-26 Nursing Note - Wound [id number]#1.00TI FF Normal [facility] Physician Orderon 03-26-2023 Physician Order [id number]#1.00TI FF Normal [facility] Progress Note - Woundon 03-13 Progress Note - Wound [id number]#1.00TI FF [facility] Multi-Wound Charton 03-25-19 24 Multi-Wound Chart [id number] 2020 [id number]#1.00TI FF [facility] Consent for Procedure/Surger yon 03-18-2023 Consent for Procedure/Surgery [id number]#1.00TI FF [facility] Consent for Procedure/Surgery [id number]#1.00TI FF [facility] Consent for Treatmenton Consent for Treatment [id number]#1.00TIF F [facility] Multi-Wound Charton 03-18-19 24 Multi-Wound Chart [id number] 2019 [id number]#1.00TI FF [facility] Nursing Assessment - Woundon 03-18-2023 Nursing Assessment - Wound [id number]#1.00TI FF [facility] Physician Orderon 03-18-2023 Physician Order [id number] 2019 [id number]#1.00TI FF [facility] Procedure - Woundon 03-18-19 24 Procedure - Wound [id number] 2019 [id number]#1.00TI FF [facility] Progress Note - [place] Progress Note - Wound [id number]#1.00TI FF [facility] Basic Metabolic Panelon 02-11 Anion gap [Moles/Vol] 10.5 mmol/L Normal 6.0-15.0 [facility] Comment on above: Performed By: #### M Sherry BMP ####[facility] [place] [address] [facility] Calcium [Mass/Vol] 9.3 mg/dL Normal 8.6-10.3 [facility] Comment on above: Performed By: #### M G, BMP ####[address] Chloride [Moles/Vol] 99 mmol/L Normal 98-107 [facility] Comment on above: Performed By: #### M G, BMP ####[place] [id number] [facility] CO2 [Moles/Vol] 27.2 mmol/L Normal 21.0-31.0 [facility] Comment on above: Performed By: #### M G, BMP ####[place] [address] [facility] Creatinine [Mass/Vol] 4.34 mg/dL Significan t change up 0.60-1.20 [facility] Comment on above: Performed By: #### M G, BMP ####[place] [address] [facility] Creatinine Clr Calc Pharmacy 9.52 Normal [facility] Comment on above: Performed By: #### M G, BMP ####[place] [address] [facility] GFR/1.73 sq M.predicted MDRD (S/P/Bld) [Vol rate/Area] 10.031 mL/min/{1.73_m2} Normal [facility] Comment on above: Performed By: #### M G, BMP ####[place] [address] [facility] Glucose [Mass/Vol] 175 mg/dL High 70-100 [facility] Comment on above: Result Comment: [place] Glucose Reference Range is dependent on time and content of last meal. Glucose of more than 200 mg/dL in a nonstressed, ambulatory subject supports the diagnosis of Diabetes Mellitus. ADA recommended reference range Performed By: #### M G, BMP ####[place] [id number] [facility] Potassium [Moles/Vol] 4.7 mmol/L Significan t change down 3.5-5.1 [facility] Comment on above: Performed By: #### M Sherry, BMP ####[address] [address] [facility] Sodium [Moles/Vol] 132 mmol/L Low 136-145 [facility] Comment on above: Performed By: #### M Sherry, BMP ####[facility] [place] [address] [facility] Urea nitrogen [Mass/Vol] 39 mg/dL High 7-25 [facility] Comment on above: Performed By: #### M Sherry, BMP ####[address] [address] [facility] ECG 12 lead ECGon 03-07-2023 ECG 12 lead ECG Normal [facility] Glucose Poct Glucometerson 0 03-07-2023 Glucose [Mass/Vol] 199 mg/dL Normal [facility] Comment on above: Result Comment: [facility] Glucose Reference Range is dependent on time and content of last meal. Glucose of more than 200 mg/dL in a nonstressed, ambulatory subject supports the diagnosis of Diabetes Mellitus.PERFORMED BY:[address] [place], [place] [phone] MEDICAL DIRECTORRAMEZ LARSON M.D. Performed By: #### G LULS ####Point of Care testing, Glucose [Mass/Vol] 130 mg/dL Normal [facility] Comment on above: Result Comment: [facility] Glucose Reference Range is dependent on time and content of last meal. Glucose of more than 200 mg/dL in a nonstressed, ambulatory subject supports the diagnosis of Diabetes Mellitus.PERFORMED BY:[address] [place]ia[place], [place] [phone] MEDICAL MAJOR LARSON M.D. Performed By: #### G LULS ####Point of Care testing, Commemt1 Glu2: Cleaned Meter Normal [facility] Comment on above: Result Comment: PERF ORMED BY:[place] [address] [place], [place] [phone] MEDICAL MAJOR LARSON M.D. Performed By: #### G LULS ####Point of Care testing, Glucose [Mass/Vol] 148 mg/dL Normal [facility] Comment on above: Result Comment: [place] om Glucose Reference Range is dependent on time and content of last meal. Glucose of more than 200 mg/dL in a nonstressed, ambulatory subject supports the diagnosis of Diabetes Mellitus. Performed By: #### G LULS ####Point of Care testing, Glucose [Mass/Vol] 191 mg/dL Normal [facility] Comment on above: Result Comment: [place] om Glucose Reference Range is dependent on time and content of last meal. Glucose of more than 200 mg/dL in a nonstressed, ambulatory subject supports the diagnosis of Diabetes Mellitus.PERFORMED BY:[address] [place], [place] [phone] MEDICAL DIRECTORRAMEZ LARSON M.D. Performed By: #### G LULS ####Point of Care testing, Magnesiumon 03-07-2023 Magnesium [Mass/Vol] 1.8 mg/dL Low 1.9-2.7 [facility] Comment on above: Result Comment: PERF ORMED BY:[address] [place], [place] [phone] MEDICAL DIRECTORRAMEZ LARSON M.D. Performed By: #### M G, BMP ####[place] [id number] [facility] C-Reactive Proteinon 024 C-Reactive Protein 16.1 mg/dL High 0.0-0.5 [facility] Comment on above: Result Comment: PERF ORMED BY:[address] [place], [place] [phone] MEDICAL DIRECTORRAMEZ LARSON M.D. Performed By: #### P HOS, CRP, MG, CBC, HS TROP ####[place] [id number] [facility] Complete Blood Count Auto Di ffon 03-06-2023 Basophils (Bld) [#/Vol] 0.0 10*3/uL Normal 0.0-0.2 [facility] Comment on above: Result Comment: PERF ORMED BY:[address] [place], [place] [phone] MEDICAL DIRECTORRAMEZ LARSON M.D. Performed By: #### P HOS, CRP, MG, CBC, HS TROP ####[address] Basophils/100 WBC (Bld) 0.5 % Normal . T abimael [facility] Comment on above: Performed By: #### P HOS, CRP, MG, CBC, HS TROP ####[address] Eosinophils (Bld) [#/Vol] 0.1 10*3/uL Normal 0.0-0.45 [facility] Comment on above: Performed By: #### P HOS, CRP, MG, CBC, HS TROP ####[address] Eosinophils/100 WBC (Bld) 0.7 % Normal . [facility] Comment on above: Performed By: #### P HOS, CRP, MG, CBC, HS TROP ####[address] Erythrocyte distribution width (RBC) [Ratio] 18.1 % High 11.9-15.3 [facility] Comment on above: Performed By: #### P HOS, CRP, MG, CBC, HS TROP ####[address] Hematocrit (Bld) [Volume fraction] 32.4 % Low 34.0-46.4 [facility] Comment on above: Performed By: #### P HOS, CRP, MG, CBC, HS TROP ####[address] Hemoglobin (Bld) [Mass/Vol] 10.0 g/dL Low 11.8-15.4 [facility] Comment on above: Performed By: #### P HOS, CRP, MG, CBC, HS TROP ####[address] Lymphocytes (Bld) [#/Vol] 1.3 10*3/uL Normal 1.00-4.8 [facility] Comment on above: Performed By: #### P HOS, CRP, MG, CBC, HS TROP ####[address] Lymphocytes/100 WBC (Bld) 15.9 % Normal . [facility] Comment on above: Performed By: #### P HOS, CRP, MG, CBC, HS TROP ####[address] MCH (RBC) [Entitic mass] 26.7 pg Normal 24.7-34.3 [facility] Comment on above: Performed By: #### P HOS, CRP, MG, CBC, HS TROP ####[address] MCV (RBC) [Entitic vol] 86.3 fL Normal 80-100 [facility] Comment on above: Performed By: #### P HOS, CRP, MG, CBC, HS TROP ####[address] Mean Corpuscular HGB Conc 31.0 g/dL Low 32.0-35.0 [facility] Comment on above: Performed By: #### P HOS, CRP, MG, CBC, HS TROP ####[address] Monocytes (Bld) [#/Vol] 1.1 10*3/uL High 0.0-0.8 [facility] Comment on above: Performed By: #### P HOS, CRP, MG, CBC, HS TROP ####[address] Monocytes/100 WBC (Bld) 13.2 % Normal . [facility] Comment on above: Performed By: #### P HOS, CRP, MG, CBC, HS TROP ####[address] Neutrophils (Bld) [#/Vol] 5.8 10*3/uL Normal 1.8-7.7 [facility] Comment on above: Performed By: #### P HOS, CRP, MG, CBC, HS TROP ####[address] Neutrophils/100 WBC (Bld) 69.7 % Normal . [facility] Comment on above: Performed By: #### P HOS, CRP, MG, CBC, HS TROP ####[address] NRBC% 0.1 /100{WBC} Normal 0-0.5 [facility] Comment on above: Performed By: #### P HOS, CRP, MG, CBC, HS TROP ####[address] Platelet mean volume (Bld) [Entitic vol] 7.6 fL Normal 6.3-10.7 [facility] Comment on above: Performed By: #### P HOS, CRP, MG, CBC, HS TROP ####[address] Platelets (Bld) [#/Vol] 371 10*3/uL Normal 150-450 [facility] Comment on above: Performed By: #### P HOS, CRP, MG, CBC, HS TROP ####[address] RBC (Bld) [#/Vol] 3.75 10*6/uL Normal 3.60-5.00 [facility] Comment on above: Performed By: #### P HOS, CRP, MG, CBC, HS TROP ####[place] [id number] [facility] WBC (Bld) [#/Vol] 8.3 10*3/uL Normal 3.8-11.6 [facility] Comment on above: Performed By: #### P HOS, CRP, MG, CBC, HS TROP ####[address] ECG 12 lead ECGon 03-06-2023 ECG 12 lead ECG Normal [facility] Glucose Poct Glucometerson 0 03-06-2023 Glucose [Mass/Vol] 188 mg/dL Normal [facility] Comment on above: Result Comment: [facility] Glucose Reference Range is dependent on time and content of last meal. Glucose of more than 200 mg/dL in a nonstressed, ambulatory subject supports the diagnosis of Diabetes Mellitus.PERFORMED BY:[address] [place], [place] [phone] MEDICAL MAJOR LARSON M.D. Performed By: #### G LULS ####Point of Care testing, Glucose [Mass/Vol] 131 mg/dL Normal [facility] Comment on above: Result Comment: [facility] Glucose Reference Range is dependent on time and content of last meal. Glucose of more than 200 mg/dL in a nonstressed, ambulatory subject supports the diagnosis of Diabetes Mellitus.PERFORMED BY:[address] [place], [place] [phone] MEDICAL MAJOR LARSON M.D. Performed By: #### G LULS ####Point of Care testing, Glucose [Mass/Vol] 184 mg/dL Normal [facility] Comment on above: Result Comment: [facility] Glucose Reference Range is dependent on time and content of last meal. Glucose of more than 200 mg/dL in a nonstressed, ambulatory subject supports the diagnosis of Diabetes Mellitus.PERFORMED BY:[address] [place], [place] [phone] MEDICAL MAJOR LARSON M.D. Performed By: #### G LULS ####Point of Care testing, Glucose [Mass/Vol] 132 mg/dL Normal [facility] Comment on above: Result Comment: [facility] Glucose Reference Range is dependent on time and content of last meal. Glucose of more than 200 mg/dL in a nonstressed, ambulatory subject supports the diagnosis of Diabetes Mellitus.PERFORMED BY:[address] [place], [place] [phone] BARRETT LARSON M.D. Performed By: #### G LULS ####Point of Care testing, Magnesiumon 03-06-2023 Magnesium [Mass/Vol] 2.0 mg/dL Normal 1.9-2.7 [facility] Comment on above: Performed By: #### P HOS, CRP, MG, CBC, HS TROP ####[place] [id number] [facility] Phosphoruson 03-06-2023 Phosphate [Mass/Vol] 3.2 mg/dL Normal 2.5-4.5 [facility] Comment on above: Performed By: #### P HOS, CRP, MG, CBC, HS TROP ####[address] Troponin I High Sensitivityo n 03-06-2023 Troponin I High Sensitivity 30.4 pg/mL High 0.0-15.0 [facility] Comment on above: Result Comment: PERF ORMED BY:[address] [place], [place] [phone] MEDICAL DIRECTORRAMEZ LARSON M.D. Performed By: #### P HOS, CRP, MG, CBC, HS TROP ####[address] Alanine aminotransferase [En zymatic activity/volume] in Serum or PlasmaOrdered By: Constantine Perdomo on 03-05-2023 ALT [Catalytic activity/Vol] 18 U/L Normal 7-52 [facility] Comment on above: Performed By: #### C UBLD, CBC, LACTIC, HS TROP, BNP, CMP ####[address] Albumin [Mass/volume] in Ser um or Plasma by Bromocresol green (BCG) dye binding methoOrdered By: Constantine Perdomo on 03-05-2023 Albumin BCG dye [Mass/Vol] 3.5 g/dL 3.5-5.7 [facility] Alkaline phosphatase [Enzyma tic activity/volume] in Serum or PlasmaOrdered By: Constantine Perdomo on 03-05-2023 ALP [Catalytic activity/Vol] 161 U/L High 34-104 [facility] Comment on above: Performed By: #### C UBLD, CBC, LACTIC, HS TROP, BNP, CMP ####[address] Aspartate aminotransferase [ Enzymatic activity/volume] in Serum or PlasmaOrdered By: Constantine Perdomo on 03-05-2023 AST [Catalytic activity/Vol] 23 U/L Normal 13-39 [facility] Comment on above: Performed By: #### C UBLD, CBC, LACTIC, HS TROP, BNP, CMP ####[address] Automated basophil %Ordered By: Constantine Perdomo on 03-05-2023 Basophils/100 WBC (Bld) 0.4 % Normal . [facility] Comment on above: Performed By: #### C UBLD, CBC, LACTIC, HS TROP, BNP, CMP ####[address] Automated basophil countOrde red By: Constantine Perdomo on 03-05-2023 Basophils (Bld) [#/Vol] 0.0 10*3/uL Normal 0.0-0.2 [facility] Comment on above: Result Comment: PERF ORMED BY:[address] [place], [place] [phone] MEDICAL DIRECTORRAMEZ LARSON M.D. Performed By: #### C UBLD, CBC, LACTIC, HS TROP, BNP, CMP ####[address] Automated blood monocyte cou ntOrdered By: Constantine Perdomo on 03-05-2023 Monocytes (Bld) [#/Vol] 0.8 10*3/uL Normal 0.0-0.8 [facility] Comment on above: Performed By: #### C UBLD, CBC, LACTIC, HS TROP, BNP, CMP ####[address] Automated eosinophil %Ordere d By: Constantine Perdomo on 03-05-2023 Eosinophils/100 WBC (Bld) 0.0 % Normal . [facility] Comment on above: Performed By: #### C UBLD, CBC, LACTIC, HS TROP, BNP, CMP ####[address] Automated eosinophil countOr dered By: Constantine Perdomo on 03-05-2023 Eosinophils (Bld) [#/Vol] 0.0 10*3/uL Normal 0.0-0.45 [facility] Comment on above: Performed By: #### C UBLD, CBC, LACTIC, HS TROP, BNP, CMP ####[address] Automated monocyte %Ordered By: Constantine Perdomo on 03-05-2023 Monocytes/100 WBC (Bld) 9.2 % Normal . [facility] Comment on above: Performed By: #### C UBLD, CBC, LACTIC, HS TROP, BNP, CMP ####[address] Automated neutrophil %Ordere d By: Constantine Perdomo on 03-05-2023 Neutrophils/100 WBC (Bld) 81.3 % Normal . [facility] Comment on above: Performed By: #### C UBLD, CBC, LACTIC, HS TROP, BNP, CMP ####[address] BNP ser/plasOrdered By: Uvaldo Perdomo on 03-05-2023 Natriuretic peptide B (Bld) [Mass/Vol] 872.0 pg/mL High 5-100 [facility] Comment on above: Result Comment: PERF ORMED BY:[address] [place], [place] [phone] MEDICAL DIRECTORRAMEZ LARSON M.D. Performed By: #### C UBLD, CBC, LACTIC, HS TROP, BNP, CMP ####[address] Bilirubin.total [Mass/volume ] in Serum or PlasmaOrdered By: Constantine Perdomo on 03-05-2023 Bilirubin [Mass/Vol] 0.6 mg/dL Normal 0.3-1.0 [facility] Comment on above: Performed By: #### C UBLD, CBC, LACTIC, HS TROP, BNP, CMP ####[facility] [place] [address] [facility] Blood Cultureon 03-05-2023 Bacteria identified Cx Nom (Bld) NO GROWTH 5 DAYS PERFORMED BY: [facility] [address] [place] [id number] PATHOLOGIST MANAGER FUNCTIONAL RAMEZ LARSON M.D. Normal [facility] Comment on above: Performed By: #### C UBLD, CBC, LACTIC, HS TROP, BNP, CMP ####[place] [address] [place] [address] [facility] Bacteria identified Cx Nom (Bld) NO GROWTH 5 DAYS PERFORMED BY: [facility] [address] [facility] [place] [id number] PATHOLOGIST MANAGER FUNCTIONAL RAMEZ LARSON M.D. Normal [facility] Comment on above: Performed By: #### C UBLD, CBC, LACTIC, HS TROP, BNP, CMP ####[place] [id number] [facility] CT head/brain wo conon 03-05 CT head/brain wo con Normal [facility] Calcium [Mass/volume] in Ser um or PlasmaOrdered By: Constantine Perdomo on 03-05-2023 Calcium [Mass/Vol] 10.1 mg/dL Normal 8.6-10.3 [facility] Comment on above: Performed By: #### C UBLD, CBC, LACTIC, HS TROP, BNP, CMP ####[place] [id number] [facility] Capillary blood glucose eugenie urement by glucometer (mass/volume)Ordered By: Marcel Arreaga on 03-05-2023 Glucose [Mass/Vol] 224 mg/dL Normal [facility] Comment on above: Random Glucose Refer ence Range is dependent on time and content of last meal. Glucose of more than 200 mg/dL in a nonstressed, ambulatory subject supports the diagnosis of Diabetes Mellitus. Result Comment: [place] om Glucose Reference Range is dependent on time and content of last meal. Glucose of more than 200 mg/dL in a nonstressed, ambulatory subject supports the diagnosis of Diabetes Mellitus. Performed By: #### G LUANNITA ####Point of Care testing, Carbon dioxide, total [Moles /volume] in Serum or PlasmaOrdered By: Constantine Perdomo on 03-05-2023 CO2 [Moles/Vol] 26.7 mmol/L Normal 21.0-31.0 [facility] Comment on above: Performed By: #### C UBLD, CBC, LACTIC, HS TROP, BNP, CMP ####[address] Chloride [Moles/volume] in S steffanie or PlasmaOrdered By: Constantine Perdomo on 03-05-2023 Chloride [Moles/Vol] 92 mmol/L Low 98-107 [facility] Comment on above: Performed By: #### C UBLD, CBC, LACTIC, HS TROP, BNP, CMP ####[address] Complete Blood Count Auto Di ffon 03-05-2023 Mean Corpuscular HGB Conc 32.0 g/dL Normal 32.0-35.0 [facility] Comment on above: Performed By: #### C UBLD, CBC, LACTIC, HS TROP, BNP, CMP ####[address] Monocytes/100 WBC (Bld) 24.78 % High 0.00-20.00 [facility] Comment on above: Result Comment: For adults in ED, MDW > 20.0 may be associated with a higher risk of sepsis during the first 12 hrs of hospital admission Performed By: #### C UBLD, CBC, LACTIC, HS TROP, BNP, CMP ####[address] NRBC% 0.0 /100{WBC} Normal 0-0.5 [facility] Comment on above: Performed By: #### C UBLD, CBC, LACTIC, HS TROP, BNP, CMP ####[place] [id number] [facility] Comprehensive Metabolic Pane eliseo 03-05-2023 Albumin [Mass/Vol] 3.5 g/dL Normal 3.5-5.7 [facility] Comment on above: Performed By: #### C UBLD, CBC, LACTIC, HS TROP, BNP, CMP ####[place] [address] Creatinine Clr Calc Pharmacy 16.47 Normal [facility] Comment on above: Result Comment: PERF ORMED BY:[address] [place], [place] [phone] MEDICAL DIRECTORRAMEZ LARSON M.D. Performed By: #### C UBLD, CBC, LACTIC, HS TROP, BNP, CMP ####[place] [address] [address] GFR/1.73 sq M.predicted MDRD (S/P/Bld) [Vol rate/Area] 19.351 mL/min/{1.73_m2} Normal [facility] Comment on above: Performed By: #### C UBLD, CBC, LACTIC, HS TROP, BNP, CMP ####[address] Consent for Procedure/Surger yon 03-05-2023 Consent for Procedure/Surgery [id number]#1.00TI FF Normal [facility] Creatinine [Mass/volume] in Serum or PlasmaOrdered By: Constantine Perdomo on 03-05-2023 Creatinine [Mass/Vol] 2.51 mg/dL High 0.60-1.20 [facility] Comment on above: Performed By: #### C UBLD, CBC, LACTIC, HS TROP, BNP, CMP ####[address] ECG 12 lead ECGon 03-05-2023 ECG 12 lead ECG Normal [facility] Erythrocyte distribution wid th [Ratio] by Automated countOrdered By: Constantine Perdomo on 03-05-2023 Erythrocyte distribution width (RBC) [Ratio] 18.8 % High 11.9-15.3 [facility] Comment on above: Performed By: #### C UBLD, CBC, LACTIC, HS TROP, BNP, CMP ####[place] [address] [place] [address] [facility] Erythrocytes [#/volume] in B lood by Automated countOrdered By: Constantine Perdomo on 03-05-2023 RBC (Bld) [#/Vol] 3.98 10*6/uL Normal 3.60-5.00 [facility] Comment on above: Performed By: #### C UBLD, CBC, LACTIC, HS TROP, BNP, CMP ####[place] [address] [place] [address] [facility] Glucoseon 03-05-2023 Glucose [Mass/Vol] 223 mg/dL High 70-100 [facility] Comment on above: Order Comment: Comme nt On awakening, before meals, and before bedtime. Result Comment: [place] om Glucose Reference Range is dependent on time and content of last meal. Glucose of more than 200 mg/dL in a nonstressed, ambulatory subject supports the diagnosis of Diabetes Mellitus. ADA recommended reference rangePERFORMED BY:[place] [address] [address] [place], [place] [phone] MEDICAL DIRECTORRAMEZ LARSON M.D. Performed By: #### G MARY ####[address] [address] [facility] Glucose Poct Glucometerson 0 03-05-2023 Commemt1 Glu2: Cleaned Meter Normal [facility] Comment on above: Result Comment: PERF ORMED BY:[place] [address] [place] [place], [place] [phone] MEDICAL DIRECTORRAMEZ LARSON M.D. Performed By: #### G LULS ####Point of Care testing, Glucose [Mass/volume] in Ser um or PlasmaOrdered By: Constantine Perdomo on 03-05-2023 Glucose [Mass/Vol] 212 mg/dL High 70-100 [facility] Comment on above: ADA recommended refe rence rangeRandom Glucose Reference Range is dependent on time and content of last meal. Glucose of more than 200 mg/dL in a nonstressed, ambulatory subject supports the diagnosis of Diabetes Mellitus. Result Comment: [place] Glucose Reference Range is dependent on time and content of last meal. Glucose of more than 200 mg/dL in a nonstressed, ambulatory subject supports the diagnosis of Diabetes Mellitus. ADA recommended reference range Performed By: #### C UBLD, CBC, LACTIC, HS TROP, BNP, CMP ####[place] [id number] [facility] Hematocrit [Volume Fraction] of Blood by Automated countOrdered By: Constantine Perdomo on 03-05-2023 Hematocrit (Bld) [Volume fraction] 33.8 % Low 34.0-46.4 [facility] Comment on above: Performed By: #### C UBLD, CBC, LACTIC, HS TROP, BNP, CMP ####[place] [id number] [facility] Hemoglobin [Mass/volume] in BloodOrdered By: Constantine Perdomo on 03-05-2023 Hemoglobin (Bld) [Mass/Vol] 10.8 g/dL Low 11.8-15.4 [facility] Comment on above: Performed By: #### C UBLD, CBC, LACTIC, HS TROP, BNP, CMP ####[place] [id number] [facility] Lactate [Moles/volume] in Se rum or PlasmaOrdered By: Constantine Perdomo on 03-05-2023 Lactate [Moles/Vol] 2.5 mmol/L Off scale high 0.5-2.[address] [facility] Comment on above: Critical Result : Ca lled to and read back by: ARMANI BRUNO at: 03/05/2023 18:20:52 by:[id number] Result Comment: Crit ical Result : Called to and read back by: ARMANI BRUNO at: 03/05/2023 18:20:52 by:[id number] BY:[address] [place], [place] [phone] MEDICAL DIRECTORRAMEZ LARSON M.D. Performed By: #### C UBLD, CBC, LACTIC, HS TROP, BNP, CMP ####[place] [id number] [facility] Lactic Acid Reflexon 024 Lactic Acid Reflex 1.8 mmol/L Normal 0.5-2.2 [facility] Comment on above: Result Comment: PERF ORMED BY:[address] [place], [place] [phone] MEDICAL DIRECTORRAMEZ LARSON M.D. Performed By: #### L ACTIC RFX ####[address] Leukocytes [#/volume] correc tr for nucleated erythrocytes in Blood by Automated counOrdered By: Constantine Perdomo on 03-05-2023 WBC corrected for nucl RBC Auto (Bld) [#/Vol] 8.1 10*3/uL 3.8-11.6 [facility] Leukocytes [#/volume] in Blo od by Automated countOrdered By: Constantine Perdomo on 03-05-2023 WBC (Bld) [#/Vol] 8.1 10*3/uL Normal 3.8-11.6 [facility] Comment on above: Performed By: #### C UBLD, CBC, LACTIC, HS TROP, BNP, CMP ####[address] Lymphocytes [#/volume] in Bl ood by Automated countOrdered By: Constantine Perdomo on 03-05-2023 Lymphocytes (Bld) [#/Vol] 0.7 10*3/uL Low 1.00-4.8 [facility] Comment on above: Performed By: #### C UBLD, CBC, LACTIC, HS TROP, BNP, CMP ####[address] Lymphocytes/100 leukocytes i n Blood by Automated countOrdered By: Constantine Perdomo on 03-05-2023 Lymphocytes/100 WBC (Bld) 9.1 % Normal . [facility] Comment on above: Performed By: #### C UBLD, CBC, LACTIC, HS TROP, BNP, CMP ####[address] MCH [Entitic mass] by Automa tr countOrdered By: Constantine Perdomo on 03-05-2023 MCH (RBC) [Entitic mass] 27.2 pg Normal 24.7-34.3 [facility] Comment on above: Performed By: #### C UBLD, CBC, LACTIC, HS TROP, BNP, CMP ####[place] [address] [place] [id number] [facility] MCHC Auto (RBC) [Mass/Vol]Or dered By: Constantine Perdomo on 03-05-2023 MCHC (RBC) [Mass/Vol] 32.0 g/dL 32.0-35.0 [facility] MCV [Entitic volume] by Auto mated countOrdered By: Constantine Perdomo on 03-05-2023 MCV (RBC) [Entitic vol] 85.0 fL Normal 80-[address] [facility] Comment on above: Performed By: #### C UBLD, CBC, LACTIC, HS TROP, BNP, CMP ####[place] [address] Monocyte distribution width [Entitic volume] in Blood by AutomatedOrdered By: Constantine Perdomo on 03-05-2023 Monocyte distribution width Auto (Bld) [Entitic vol] 24.78 % 0.00-20.00 [facility] Comment on above: For adults in ED, MD W > 20.0 may be associated with a higher risk of sepsis during the first 12 hrs of hospital admission Neutrophils [#/volume] in Bl ood by Automated countOrdered By: Constantine Perdomo on 03-05-2023 Neutrophils (Bld) [#/Vol] 6.6 10*3/uL Normal 1.8-7.7 [facility] Comment on above: Performed By: #### C UBLD, CBC, LACTIC, HS TROP, BNP, CMP ####[address] No Panel InformationOrdered By: Constantine Perdomo on 03-05-2023 Estimated GFR (CKD-EPI) 19.351 mL/Min [facility] Creatinine Clearance (Chem 16.47 [facility] No Panel InformationOrdered By: Marcel Arreaga on 03-05-2023 Bedside Glucose Comment Glu2: cleaned meter [facility] Nucleated erythrocytes [Pres ence] in Blood by Automated countOrdered By: Constantine Perdomo on 03-05-2023 Nucleated RBC Auto Ql (Bld) 0.0 /100{WBC} 0-0.5 [facility] Nursing Assessment - Woundon 03-05-2023 Nursing Assessment - Wound [id number] FF Normal [facility] Platelet mean volume [Entiti c volume] in Blood by Automated countOrdered By: Constantine Perdomo on 03-05-2023 Platelet mean volume (Bld) [Entitic vol] 7.3 fL Normal 6.3-10.7 [facility] Comment on above: Performed By: #### C UBLD, CBC, LACTIC, HS TROP, BNP, CMP ####[address] [place] [address] [place] Platelets [#/volume] in Bloo d by Automated countOrdered By: Constantine Perdomo on 03-05-2023 Platelets (Bld) [#/Vol] 418 10*3/uL Normal 150-450 [facility] Comment on above: Performed By: #### C UBLD, CBC, LACTIC, HS TROP, BNP, CMP ####[address] [place] [address] [place] Potassium [Moles/volume] in Serum or PlasmaOrdered By: Constantine Perdomo on 03-05-2023 Potassium [Moles/Vol] 3.1 mmol/L Low 3.5-5.1 [facility] Comment on above: Performed By: #### C UBLD, CBC, LACTIC, HS TROP, BNP, CMP ####[id number] [place] Protein [Mass/volume] in Ser um or PlasmaOrdered By: Constantine Predomo on 03-05-2023 Protein [Mass/Vol] 7.3 g/dL Normal 6.4-8.9 [facility] Comment on above: Performed By: #### C UBLD, CBC, LACTIC, HS TROP, BNP, CMP ####[address] Serum globulin measurement b y calculation (mass/volume)Ordered By: Constantine Perdomo on 03-05-2023 Globulin (S) [Mass/Vol] 3.8 g/dL Normal [facility] Comment on above: Performed By: #### C UBLD, CBC, LACTIC, HS TROP, BNP, CMP ####[address] Serum or plasma albumin/glob ulin mass ratioOrdered By: Constantine Perdomo on 03-05-2023 Albumin/Globulin [Mass ratio] 0.9 {ratio} Normal [facility] Comment on above: Performed By: #### C UBLD, CBC, LACTIC, HS TROP, BNP, CMP ####[address] Serum or plasma anion gap de terminationOrdered By: Constantine Perdomo on 03-05-2023 Anion gap [Moles/Vol] 17.4 mmol/L High 6.0-15.0 [facility] Comment on above: Performed By: #### C UBLD, CBC, LACTIC, HS TROP, BNP, CMP ####[address] Sodium [Moles/volume] in Ser um or PlasmaOrdered By: Constantine Perdomo on 03-05-2023 Sodium [Moles/Vol] 133 mmol/L Low 136-145 [facility] Comment on above: Performed By: #### C UBLD, CBC, LACTIC, HS TROP, BNP, CMP ####[address] Troponin I High Sensitivityo n 03-05-2023 Troponin I High Sensitivity 21.4 pg/mL High 0.0-15.0 [facility] Comment on above: Result Comment: PERF ORMED BY:[address] [place], [place] [phone] MEDICAL DIRECTORRAMEZ LARSON M.D. Performed By: #### C UBLD, CBC, LACTIC, HS TROP, BNP, CMP ####[facility] [place] [address] [facility] Troponin I.cardiac [Mass/vol ume] in Serum or Plasma by Detection limit <= 0.01 ng/Ordered By: Constantine Perdomo on 03-05-2023 Troponin I.cardiac DL <= 0.01 ng/mL [Mass/Vol] 21.4 pg/mL 0.0-15.0 [facility] Urea nitrogen [Mass/volume] in Serum or PlasmaOrdered By: Constantine Perdomo on 03-05-2023 Urea nitrogen [Mass/Vol] 15 mg/dL Normal - [facility] Comment on above: Performed By: #### C UBLD, CBC, LACTIC, HS TROP, BNP, CMP ####[facility] [address] [place] [address] [facility] XR chest 1V portableon 03-05 XR chest 1V portable Normal [facility] Consent for Procedure/Surger yon 03-04-2023 Consent for Procedure/Surgery [id number]#1.00TIF F [facility] Consent for Treatmenton 02-11 Consent for Treatment [id number]#1.00TIF F [facility] Multi-Wound Charton 03-04-19 Multi-Wound Chart [id number] 1022 [id number]#1.00TI FF [facility] Nursing Assessment - Woundon 03-04-2023 Nursing Assessment - Wound [id number]#1.00TI FF [facility] Nursing Note - Woundon 03-04 Nursing Note - Wound [id number]#1.00TI FF [facility] Physician Orderon 03-04-2023 Physician Order [id number] [id number]#1.00TI FF [facility] Procedure - Woundon 03-04-19 Procedure - Wound [id number] 1022 [id number]#1.00TI FF [facility] Progress Note - Woundon 02-11 Progress Note - Wound [id number]#1.00TI FF [facility] Nursing Note - Woundon 02-26 Nursing Note - Wound [id number]#2.00TI FF [facility] Consent for Treatmenton 02-10 Consent for Treatment [id number]#1.00TIF F [facility] Consent to Photographon 02-10 Consent to Photograph [id number]#1.00TI FF [facility] Correspondence - Woundon Correspondence - Wound [id number]#1.00TI FF [facility] Correspondence - Wound [id number]#1.00TI FF [facility] Multi-Wound Charton 02-25-19 Multi-Wound Chart [id number] 1021 [id number]#1.00TI FF [facility] Nursing Assessment - Woundon 02-25-2023 Nursing Assessment - Wound [id number]#2.00TI FF [facility] Physician Orderon 02-25-2023 Physician Order [id number] [id number]#1.00TI FF [facility] Procedure - Woundon 02-25-19 Procedure - Wound [id number] [id number]#1.00TI FF [facility] Progress Note - Woundon 02-10 Progress Note - Wound [id number]#1.00TI FF Normal [facility] Telemedicineon 02-25-2023 Telemedicine [id number] Wilbert Wilson elliott Mc 1945 F Date Provider Department [facility] 02/25/2023 NADEME LOMBARDO CARD [facility] No family history on file Level of Service:35545 [place] PHYS/QHP TELEPHONE EVALUATION 11-20 MIN Normal [facility] BASIC METABOLIC PANELon 12-2 Anion gap [Moles/Vol] 12 mmol/L Normal 7-20 [facility] Comment on above: Performed By: #### L [id number] ####[facility] ([facility])[address] [place] [address] Calcium [Mass/Vol] 9.9 mg/dL Normal 8.6-10.3 [facility] Comment on above: Performed By: #### L [id number] ####[facility] ([facility])[address] [place] [address] Chloride [Moles/Vol] 97 mmol/L Low 98-107 [facility] Comment on above: Performed By: #### L [id number] ####[facility] (BEAKER)[address] [place] [address] CO2 [Moles/Vol] 29 mmol/L Normal 21-31 [facility] Comment on above: Performed By: #### L [id number] ####[facility] ([facility]AKER)[address] [place] [address] Creatinine [Mass/Vol] 3.02 mg/dL High 0.60-1.20 [facility] Comment on above: Performed By: #### L [id number] ####[facility] [address] GLOMERULAR FILTRATION RATE ML/MIN/1.73 SQ M.PREDICTED 15.6 mL/min/1.73m*2 Low >60.0 [facility] Comment on above: Result Comment: [facility]???s estimated glomerular filtration rate (eGFR) will [...] of individuals. Performed By: #### L [id number] ####[facility] ([facility])[address] [place] [address] Glucose [Mass/Vol] 158 mg/dL High 70-100 [facility] Comment on above: Performed By: #### L [id number] ####[facility] ([facility])[address] [place] [address] Potassium [Moles/Vol] 3.8 mmol/L Normal 3.5-5.1 [facility] Comment on above: Performed By: #### L [id number] ####[facility] ([facility])[address] [place] [address] Sodium [Moles/Vol] 134 mmol/L Low 136-145 [facility] Comment on above: Performed By: #### L [id number] ####[facility] [place] [address] Urea nitrogen [Mass/Vol] 19 mg/dL Normal 7-25 [facility] Comment on above: Performed By: #### L [id number] ####[facility] ([facility])[address] [place] [address] UREA NITROGEN/CREATININE (MASS RATIO) IN SER/PLAS 6.3 Normal [facility] Comment on above: Performed By: #### L [id number] ####[facility] ([facility])[address] [place] [address] CBCon 02-01-2023 Erythrocyte distribution width (RBC) [Ratio] 17.9 % High 11.5-15.0 [facility] Comment on above: Performed By: #### L [id number] #### [facility] ([facility]) [address] [address] ERYTHROCYTE MEAN CORPUSCULAR HEMOGLOBIN CONCENTRATION (G/DL) BY AUTOMATED 29.4 g/dL Low 32.0-35.0 [facility] Comment on above: Performed By: #### L [id number] #### [facility] ([facility]) [address] [address] Hematocrit (Bld) [Volume fraction] 35.4 % Low 36.0-48.0 [facility] Comment on above: Performed By: #### L [id number] #### [facility] ([facility]) [address] [address] Hemoglobin (Bld) [Mass/Vol] 10.4 g/dL Low 12.0-15.0 [facility] Comment on above: Performed By: #### L [id number] #### [facility] ([facility]) [address] [address] MCH (RBC) [Entitic mass] 27.5 pg Normal 27.0-33.0 [facility] Comment on above: Performed By: #### L [id number] #### [facility] ([facility]) [address] [place] [address] MCV (RBC) [Entitic vol] 93.7 fL Normal 82.0-98.0 [facility] Comment on above: Performed By: #### L [id number] #### [facility] ([facility]) [address] [address] PLATELETS (10*3/UL) IN BLOOD AUTOMATED COUNT 326 10*3/uL Normal 150-400 [facility] Comment on above: Performed By: #### L [id number] #### [facility] ([facility]) [address] [place] [address] RBC (Bld) [#/Vol] 3.78 10*6/uL Low 3.80-5.00 [facility] Comment on above: Performed By: #### L [id number] #### [facility] [address] [place] [address] WBC (Bld) [#/Vol] 8.14 10*3/uL Normal 4.00-10.60 [facility] Comment on above: Performed By: #### L [id number] #### [facility] ([facility]) [address] [address] POCT GLUCOSE METER UNSOLICIT ED RESULTSon 02-01-2023 Glucose [Mass/Vol] 150 mg/dL High 70-105 [facility] Comment on above: Order Comment: Waive d Testing in the ED is performed under the ED CLIA certificate #[id number]. Result Comment: [email or web address] Performed By: #### L [id number] ####[facility] ([facility])[address] [address] 30on 01-31-2023 30 The patient is Moderately Stable - Low risk of patient condition declining or worsening The patient's goals for the shift include comfort The clinical goals for the shift include stable vitals Normal [facility] 30 The patient is Moderately Stable [...] and behaviors that affect risk of falls [place] fall precautions as indicated by assessment Educate [...] cognitive ability or social support system Normal [facility] BASIC METABOLIC PANELon 01-11 Anion gap [Moles/Vol] 14 mmol/L Normal 7-20 [facility] Comment on above: Performed By: #### L [id number] #### [facility] ([facility]) [address] [address] Calcium [Mass/Vol] 10.2 mg/dL Normal 8.6-10.3 [facility] Comment on above: Performed By: #### L [id number] #### [facility] ([facility]AKER) [address] [place] [address] Chloride [Moles/Vol] 93 mmol/L Low 98-107 [facility] Comment on above: Performed By: #### L [id number] #### [facility] ([facility]) [address] [place] [address] CO2 [Moles/Vol] 27 mmol/L Normal 21-31 [facility] Comment on above: Performed By: #### L [id number] #### [facility] ([facility]) [address] [place] [address] Creatinine [Mass/Vol] 4.25 mg/dL High 0.60-1.20 [facility] Comment on above: Performed By: #### L [id number] #### [facility] ([facility]) [address] [address] GLOMERULAR FILTRATION RATE ML/MIN/1.73 SQ M.PREDICTED 10.4 mL/min/1.73m*2 Low >60.0 [facility] Comment on above: Result Comment: [facility]???s estimated glomerular filtration rate (eGFR) will [...] group of individuals. Performed By: #### L [id number] #### [facility] ([facility]) [address] [place] [address] Glucose [Mass/Vol] 151 mg/dL High 70-100 [facility] Comment on above: Performed By: #### L [id number] #### [facility] ([facility]) [address] [place] [address] Potassium [Moles/Vol] 4.1 mmol/L Normal 3.5-5.1 [facility] Comment on above: Performed By: #### L [id number] #### [facility] ([facility]) [address] [place] [address] Sodium [Moles/Vol] 130 mmol/L Low 136-145 [facility] Comment on above: Performed By: #### L [id number] #### [facility] ([facility]) [address] [place] [address] Urea nitrogen [Mass/Vol] 39 mg/dL High 7-25 [facility] Comment on above: Performed By: #### L [id number] #### [facility] ([facility]) [address] [place] [address] UREA NITROGEN/CREATININE (MASS RATIO) IN SER/PLAS 9.2 Normal [facility] Comment on above: Performed By: #### L [id number] #### [facility] ([facility]) [address] [place] [address] CBCon 01-31-2023 Erythrocyte distribution width (RBC) [Ratio] 17.7 % High 11.5-15.0 [facility] Comment on above: Performed By: #### L [id number] ####[facility] ([facility] [place] [address] ERYTHROCYTE MEAN CORPUSCULAR HEMOGLOBIN CONCENTRATION (G/DL) BY AUTOMATED 29.7 g/dL Low 32.0-35.0 [facility] Comment on above: Performed By: #### L [id number] ####[facility] [place] [address] Hematocrit (Bld) [Volume fraction] 34.0 % Low 36.0-48.0 [facility] Comment on above: Performed By: #### L [id number] ####[facility] (BEAKER)[address] [place] [address] Hemoglobin (Bld) [Mass/Vol] 10.1 g/dL Low 12.0-15.0 [facility] Comment on above: Performed By: #### L [id number] ####[facility] (BEAKER)[address] [place] [address] MCH (RBC) [Entitic mass] 27.4 pg Normal 27.0-33.0 [facility] Comment on above: Performed By: #### L [id number] ####[facility] (BEAKER)[address] [place] [address] MCV (RBC) [Entitic vol] 92.4 fL Normal 82.0-98.0 [facility] Comment on above: Performed By: #### L [id number] ####[facility] (BEAKER)[address] [place] [address] PLATELETS (10*3/UL) IN BLOOD AUTOMATED COUNT 339 10*3/uL Normal 150-400 [facility] Comment on above: Performed By: #### L [id number] ####[facility] (BEAKER)[address] [place] [address] RBC (Bld) [#/Vol] 3.68 10*6/uL Low 3.80-5.00 [facility] Comment on above: Performed By: #### L [id number] ####[facility] ([facility])[address] [place] [address] WBC (Bld) [#/Vol] 9.44 10*3/uL Normal 4.00-10.60 [facility] Comment on above: Performed By: #### L [id number] ####[facility] ([facility])[address] [place] [address] MAGNESIUMon 01-31-2023 Magnesium [Mass/Vol] 2.3 mg/dL Normal 1.9-2.7 [facility] Comment on above: Performed By: #### L [id number] ####[facility] ([facility])[address] [place] [address] PHOSPHORUSon 01-31-2023 Magnesium [Mass/Vol] 4.4 mg/dL Normal 2.5-5.0 [facility] Comment on above: Performed By: #### L [id number] #### [facility] ([facility]) [address] [place] [address] POCT GLUCOSE METER UNSOLICIT ED RESULTSon 01-31-2023 Glucose [Mass/Vol] 278 mg/dL High 70-105 [facility] Comment on above: Order Comment: Waive d Testing in the ED is performed under the ED CLIA certificate #[id number]. Result Comment: [email or web address] Performed By: #### L [id number] ####[facility] ([facility])[address] [address] Glucose [Mass/Vol] 218 mg/dL High 70-105 [facility] Comment on above: Order Comment: Waive d Testing in the ED is performed under the ED CLIA certificate #[id number]. Result Comment: [email or web address] Performed By: #### L [id number] #### [facility] ([facility]) [address] [place] [address] Glucose [Mass/Vol] 169 mg/dL High 70-105 [facility] Comment on above: Order Comment: Waive d Testing in the ED is performed under the ED CLIA certificate #[id number]. Result Comment: [email or web address] Performed By: #### L [id number] ####[facility] ([facility])[address] [address] 30on 01-30-2023 30 The patient is Moderately Stable - Low risk of patient condition declining or worsening The patient's goals for the shift include comfort The clinical goals for the shift include stable vitals Normal [facility] 30 The patient is Moderately Stable [...] fall injury Outcome: Progressing Flowsheets (Taken 01/30/2023 0900) Free from fall injury: Assess patient frequently for physical needs Identify cognitive and physical deficits and behaviors that affect risk of falls [place] fall precautions as indicated by assessment Educate patient/family on patient safety, including physical limitations Consider OT/PT consult to assist with strengthening/mobility Instruct patient to call for assistance with activity based on assessment Modify environment to reduce risk of injury Problem: Chronic Conditions and Co-morbidities Goal: Patient's chronic conditions and co-morbidity symptoms are monitored and maintained or improved Outcome: Progressing Flowsheets (Taken 01/30/2023 0900) Care Plan - Patient's Chronic Conditions and [...] goals for the shift include VSS Normal [facility] 30 Daily Case Managemen t Update Multidisciplinary rounds have been completed. Barriers to Discharge: Pending clinical course and improvement in clinical condition. Patient presented to the ER w/VT >3 min discovered on holter monitor. Cardiology consulted and ECHO performed; pending results. Patient current with [facility] at home. Plans to return home with daughter with home health care. Diet: Dietary Orders (From admission, onward) Start Ordered 01/30/23 07 Diet NPO Diet effective now Comments: Sips with medications Question: Reason for NPO: Answer: Operation/Procedure 01/30/23 0725 01/30/23 06 Special Kitchen Request Once Comments: Cream of wheat Brown sugar Low fat yogurt, arias 01/30/23 06 Physician Expected Discharge Date: 02/01/2023 Discharge Delays: [...] Consultation and Management Did you contact the sustainability consultant? No 01/29/23230201/29/23 230 Inpatient consult to Nephrology Once Specialty: Nephrology Provider: (Not yet assigned) Question Answer Comment [facility] NEPHROLOGY TEAM Reason for Consult? ESRD HD MWF Level of Consultation Consultation and Management Did you contact the sustainability consultant? No 01/29/232302 Ancillary Consults (From admission, onward) Start Ordered 01/30/23 013 Inpatient consult to Wound/Ostomy Nurse Once Comments: [...] to BLE r/t falls 01/30/23 0137 Normal [facility] 30 The patient is Moderately Stable [...] optimal ventilation and oxygenation Outcome: Progressing Normal [facility] 30 The patient is Moderately Stable - Low risk of patient condition declining or worsening The patient's goals for the shift include comfort The clinical goals for the shift include VSS Normal [facility] BASIC METABOLIC PANELon 12-2 Anion gap [Moles/Vol] 13 mmol/L Normal 7-20 [facility] Comment on above: Performed By: #### L [id number] #### [facility] ([facility]) [address] [address] Calcium [Mass/Vol] 9.8 mg/dL Normal 8.6-10.3 [facility] Comment on above: Performed By: #### L [id number] #### [facility] (BEAKER) [address] [place] [address] Chloride [Moles/Vol] 94 mmol/L Low 98-107 [facility] Comment on above: Performed By: #### L [id number] #### [facility] (BEAKER) [address] [address] CO2 [Moles/Vol] 28 mmol/L Normal 21-31 [facility] Comment on above: Performed By: #### L [id number] #### [facility] [address] [address] Creatinine [Mass/Vol] 3.15 mg/dL High 0.60-1.20 [facility] Comment on above: Performed By: #### L [id number] #### [facility] ([facility] [address] [address] GLOMERULAR FILTRATION RATE ML/MIN/1.73 SQ M.PREDICTED 14.8 mL/min/1.73m*2 Low >60.0 [facility] Comment on above: Result Comment: [facility]???s estimated glomerular filtration rate (eGFR) will [...] group of individuals. Performed By: #### L [id number] #### [facility] ([facility]) [address] [place] [address] Glucose [Mass/Vol] 177 mg/dL High 70-100 [facility] Comment on above: Performed By: #### L [id number] #### [facility] ([facility]) [address] [place] [address] Potassium [Moles/Vol] 3.5 mmol/L Normal 3.5-5.1 [facility] Comment on above: Performed By: #### L [id number] #### [facility] ([facility]) [address] [address] Sodium [Moles/Vol] 131 mmol/L Low 136-145 [facility] Comment on above: Performed By: #### L [id number] #### [facility] ([facility]) [address] [facility] [place] [address] Urea nitrogen [Mass/Vol] 29 mg/dL High 7-25 [facility] Comment on above: Performed By: #### L [id number] #### [facility] ([facility]) [address] [facility] [place] [address] UREA NITROGEN/CREATININE (MASS RATIO) IN SER/PLAS 9.2 Normal [facility] Comment on above: Performed By: #### L [id number] #### [facility] ([facility]) [address] [address] CBCon 01-30-2023 Erythrocyte distribution width (RBC) [Ratio] 17.6 % High 11.5-15.0 [facility] Comment on above: Performed By: #### L [id number] #### [facility] ([facility]) [address] [address] ERYTHROCYTE MEAN CORPUSCULAR HEMOGLOBIN CONCENTRATION (G/DL) BY AUTOMATED 29.2 g/dL Low 32.0-35.0 [facility] Comment on above: Performed By: #### L [id number] #### [facility] ([facility]) [address] [address] Hematocrit (Bld) [Volume fraction] 32.5 % Low 36.0-48.0 [facility] Comment on above: Performed By: #### L [id number] #### [facility] ([facility]) [address] [place] [address] Hemoglobin (Bld) [Mass/Vol] 9.5 g/dL Low 12.0-15.0 [facility] Comment on above: Performed By: #### L [id number] #### [facility] ([facility]) [address] [place] [address] MCH (RBC) [Entitic mass] 27.2 pg Normal 27.0-33.0 [facility] Comment on above: Performed By: #### L [id number] #### [facility] ([facility]) [address] [place] [address] MCV (RBC) [Entitic vol] 93.1 fL Normal 82.0-98.0 U [facility] Comment on above: Performed By: #### L [id number] #### [facility] ([facility] [address] [place] [address] PLATELETS (10*3/UL) IN BLOOD AUTOMATED COUNT 343 10*3/uL Normal 150-400 [facility] Comment on above: Performed By: #### L [id number] #### [facility] ([facility]) [address] [place] [address] RBC (Bld) [#/Vol] 3.49 10*6/uL Low 3.80-5.00 [facility] Comment on above: Performed By: #### L [id number] #### [facility] (BEAKER) [address] [address] WBC (Bld) [#/Vol] 8.30 10*3/uL Normal 4.00-10.60 [facility] Comment on above: Performed By: #### L [id number] #### [facility] ([facility]) [address] [place] [address] CONSULTon 01-30-2023 CONSULT [place] Electrophysiology Consult Note Reason for visit: VT [...] No CP/ SOB associated with that episode. [facility] records during syncope eval and at that [...] (chronic obstructive pulmonary disease) ([facility]/HCC) 09/23/2021 Diastolic heart failure (CMS/HCC) 09/23/2021 Dyspnea 09/23/2021 Edema 09/23/2021 Essential hypertension 09/23/2021 Hyperlipemia 09/23/2021 Kidney disease 09/23/2021 Orthopnea 09/23/2021 Primary malignant neoplasm ([facility]/HCC) 09/23/2021 Sleep apnea Type 1 diabetes ([facility]) 09/23/2021 PSH: Past Surgical History: Procedure Laterality [...] 0 min Stress: Stress Concern Present (01/29/2023) [employer] [place] [employer] - Occupational Stress Questionnaire Feeling of Stress : To some extent Social Connections: Socially Isolated (01/29/2023) Social Connection and Isolation Panel [NHANES] Frequency of Communication with Friends and Family: More than three times a week Frequency of Social Gatherings with Friends and Family: Once a week Attends [employer] Services: Never Active Member of Clubs or [...] 3 cholecalciferol (Vi (more content not included)... 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 tach on the monitor. Patient only complains of increased shortness of breath but no chest pain. She has lightheadedness. No recent falls. No nausea or vomiting. Patient states that she had the monitor in order to be evaluated for the need of pacemaker. Upon review of her records, patient was hospitalized at [facility] for syncope and at that time she [...] No co (more content not included)... Normal [facility] CONSULT ---- -------- Attestation with edits by Cheli Lutz MD at 01/30/2023 2:16 PM I personally saw and examined the patient on the same date of service as resident/fellow Dr Ramirez. I discussed the findings and therapeutic plan with the resident/fellow Dr Ramirez. I agree with the documentation, except for any edits/updates below. Teaching Physician's Revisions: Cheli Lutz MD, MPH, FACC, [facility], [facility] Interventional Cardiology Pager Email: [email or web address] du -------- Cardiology Consult Note Reason for Consult: SVT HPI: Cinthya Wilson is a 77 y.o. female with past medical history of CAD s/p PCI to LAD 2015, HFpEF 50-55%, aortic valve stenosis, ESRD HD MWF, COPD 3L NC, HTN, orthostatic hypotension who presents from cardiology clinic due to runs of NSVT seen on monitor. Of note, she was hospitalized at [facility] after syncopal episode last month. Note NSVT and bradycardia at her visit there. She was discontinued on her home beta madhu and event monitor at that point, started on amiodarone. After discharge, she saw her primary clinical laboratory aide, who recommended EP evaluation. Suggested to discontinue amiodarone given concurrent lung disease and kidney failure. On 01/29, event monitor picked up VT for greater than 3 minute stretch. Patient was completely asymptomatic at that time, reported to [facility] for evaluation. On examination, she is [...] COPD (chronic obstructive pulmonary disease) ([facility]) (09/23/2021), Diastolic heart failure ([facility]) (09/23/2021), Dyspnea (09/23/2021), Edema (09/23/2021), Essential hypertension (09/23/2021), Hyperlipemia (09/23/2021), Kidney disease (09/23/2021), Orthopnea (09/23/2021), Primary malignant neoplasm (CMS/HCC) (09/23/2021), Sleep apnea, and Type 1 diabetes (CMS/HCC) (09/23/2021). Surgical History She has a past [...] 40 mg by mouth in the morning. xzfecrmvytf-vqtsbffhv-iq lanter (Trelegy Ellipta) 200-62.5-25 mcg blister with device Inhale. furosemide (Lasix) 40 mg tablet Take 1.5 tablets by mouth in the morning and at bedtime. gabapentin (Neurontin) 100 mg capsule Take 100 mg by mouth twice a day. HumaLOG KwikPen Insulin 100 unit/mL injection HYDROcodone-acetaminophe n ([place]) 7.5-325 mg tablet Take 1 tablet by [...] 01/29/2023 v (more content not included)... Normal [facility] HEPATITIS B SURFACE ANTIGENo n 01-30-2023 HEPATITIS B VIRUS SURFACE AG PRESENCE IN SERUM Non-Reactive Normal Nonreactive [facility] Comment on above: Performed By: #### L [id number] #### [facility] ([facility]) [address] [place] [address] HEPATITIS C ANTIBODYon 01-30 HEPATITIS C VIRUS AB PRESENCE IN SERUM Non-Reactive Normal Nonreactive [facility] Comment on above: Performed By: #### L [id number] ####[facility] (BEAKER)[address] [place] [address] HPon 01-30-2023 HP H&P reviewed. The patient was examined and there are no changes to the H&P. [facility] HP ---- -------- Attestation signed by Cheli Lutz MD at 01/30/2023 2:16 PM I personally saw and examined the patient on the same date of service as resident/fellow Dr Ramirez. I discussed the findings and therapeutic plan with the resident/fellow Dr Ramirez. I agree with the documentation, except for any edits/updates below. Teaching Physician's Revisions: Cheli Lutz MD, MPH, [facility], [facility], [facility] Interventional Cardiology Pager Email: [email or web address] du -------- Cardiology Consult Note Reason for Consult: SVT HPI: Cinthya Wilson is a 77 y.o. female with past medical history of CAD s/p PCI to LAD 2015, HFpEF 50-55%, aortic valve stenosis, ESRD HD MWF, COPD 3L NC, HTN, orthostatic hypotension who presents from cardiology clinic due to runs of NSVT seen on monitor. Of note, she was hospitalized at [facility] after syncopal episode last month. Note NSVT and bradycardia at her visit there. She was discontinued on her home beta madhu and event monitor at that point, started on amiodarone. After discharge, she saw her primary clinical laboratory aide, who recommended EP evaluation. Suggested to discontinue amiodarone given concurrent lung disease and kidney failure. On 01/29, event monitor picked up VT for greater than 3 minute stretch. Patient was completely asymptomatic at that time, reported to [facility] for evaluation. On examination, she is [...] COPD (chronic obstructive pulmonary disease) ([facility]) (09/23/2021), Diastolic heart failure ([facility]) (09/23/2021), Dyspnea (09/23/2021), Edema (09/23/2021), Essential hypertension (09/23/2021), Hyperlipemia (09/23/2021), Kidney disease (09/23/2021), Orthopnea (09/23/2021), Primary malignant neoplasm ([facility]) (09/23/2021), Sleep apnea, and Type 1 diabetes ([facility]) (09/23/2021). Surgical History She has a past [...] 40 mg by mouth in the morning. nbkvfmkhehp-vpwisvszr-kf lanter (Trelegy Ellipta) 200-62.5-25 mcg blister with device Inhale. furosemide (Lasix) 40 mg tablet Take 1.5 tablets by mouth in the morning and at bedtime. gabapentin (Neurontin) 100 mg capsule Take 100 mg by mouth twice a day. HumaLOG KwikPen Insulin 100 unit/mL injection HYDROcodone-acetaminophe n ([place]) 7.5-325 mg tablet Take 1 tablet by [...] 01/29/2023 valsa (more content not included)... Normal [facility] Letter (Out)on 01-30-2023 Letter (Out) [id number] Wilbert Wilson 1945 F Date Provider Department Center 01/30/2023 [id number], GENERIC PRO*INIT None No family history on file Normal [facility] MAGNESIUMon 01-30-2023 Magnesium [Mass/Vol] 2.4 mg/dL Normal 1.9-2.7 [facility] Comment on above: Performed By: #### L [id number] #### [facility] ([facility]) [address] [address] NURSNOTEon 01-30-2023 NURSNOTE Patient reports gabapentin makes her tongue swell and increases confusion. States she now takes Lyrica 25mg once daily in the morning. Home med list updated to reflect this, gabapentin added to allergy list. Hospitalist notified of the above, awaiting clarification of orders. Safety maintained. Normal [facility] NURSNOTE Patient reports abrasions to shins have been present since a fall that occurred in October. Heels and cracks on soles of feet are from my feet just splitting open. Patient reports pain to BLE, especially open areas almost constantly at 8-10/10 pain which impedes her ability to walk and complete ADLs independently. PRN [place] administered to complete wound care. Orders obtained for wound care consult. Pain issues relayed to hospitalist team. Safety maintained. Per patient opticel ag with silver to front of legs, silvedene cream to heels/bottom of feet, lac-hydrin lotion to BLE as per podiatry orders. Normal [facility] PHOSPHORUSon 01-30-2023 Magnesium [Mass/Vol] 3.3 mg/dL Normal 2.5-5.0 [facility] Comment on above: Performed By: #### L [id number] #### [facility] ([facility]) [address] [place] [address] POCT GLUCOSE METER UNSOLICIT ED RESULTSon 01-30-2023 Glucose [Mass/Vol] 140 mg/dL High 70-105 [facility] Comment on above: Order Comment: Waive d Testing in the ED is performed under the ED CLIA certificate #[id number]. Result Comment: [email or web address] Performed By: #### L [id number] ####[facility] ([place])[address] [place] [address] Glucose [Mass/Vol] 154 mg/dL High 70-105 [facility] Comment on above: Order Comment: Waive d Testing in the ED is performed under the ED CLIA certificate #[id number]. Result Comment: [email or web address] Performed By: #### L [id number] #### [facility] ([facility]) [address] [place] [address] Glucose [Mass/Vol] 139 mg/dL High 70-105 [facility] Comment on above: Order Comment: Waive d Testing in the ED is performed under the ED CLIA certificate #[id number]. Result Comment: [email or web address] Performed By: #### L [id number] #### [facility] ([facility]) [address] [place] [address] APTTon 01-29-2023 ACTIVATED PARTIAL THROMBOPLASTIN TIME IN PPP BY COAGULATION ASSAY 39.1 Seconds High 25.0-35.0 [facility] Comment on above: Result Comment: Clin ical significance of the APTT is questionable in the presence of heparin. Performed By: #### L [id number] #### [facility] ([facility]) [address] [address] B-TYPE NATRIURETIC PEPTIDEon 01-29-2023 Natriuretic peptide B (Bld) [Mass/Vol] 406 pg/mL High 0-100 [facility] Comment on above: Performed By: #### L [id number] #### [facility] ([facility]) [address] [address] BASIC METABOLIC PANELon 01-11 Anion gap [Moles/Vol] 15 mmol/L Normal 7-20 [facility] Comment on above: Performed By: #### L [id number] #### [facility] ([facility]) [address] [place] [address] Calcium [Mass/Vol] 9.8 mg/dL Normal 8.6-10.3 [facility] Comment on above: Performed By: #### L [id number] #### [facility] ([facility]) [address] [place] [address] Chloride [Moles/Vol] 92 mmol/L Low 98-107 [facility] Comment on above: Performed By: #### L [id number] #### [facility] ([facility]) [address] [address] CO2 [Moles/Vol] 29 mmol/L Normal 21-31 [facility] Comment on above: Performed By: #### L [id number] #### [facility] ([facility]) [address] [address] Creatinine [Mass/Vol] 2.60 mg/dL High 0.60-1.20 [facility] Comment on above: Performed By: #### L [id number] #### [facility] ([facility]) [address] [address] GLOMERULAR FILTRATION RATE ML/MIN/1.73 SQ M.PREDICTED 18.7 mL/min/1.73m*2 Low >60.0 [facility] Comment on above: Result Comment: The [facility]???s estimated glomerular filtration rate (eGFR) will [...] group of individuals. Performed By: #### L [id number] #### [facility] ([facility]) [address] [place] [address] Glucose [Mass/Vol] 210 mg/dL High 70-100 [facility] Comment on above: Performed By: #### L [id number] #### [facility] ([facility]) [address] [address] Potassium [Moles/Vol] 3.2 mmol/L Low 3.5-5.1 [facility] Comment on above: Performed By: #### L [id number] #### [facility] ([facility]) [address] [place] [address] Sodium [Moles/Vol] 133 mmol/L Low 136-145 [facility] Comment on above: Performed By: #### L [id number] #### [facility] ([facility]) [address] [address] Urea nitrogen [Mass/Vol] 23 mg/dL Normal 7-25 [facility] Comment on above: Performed By: #### L [id number] #### [facility] ([facility]) [address] [address] UREA NITROGEN/CREATININE (MASS RATIO) IN SER/PLAS 8.8 Normal [facility] Comment on above: Performed By: #### L [id number] #### [facility] ([facility]) [address] [address] CBC WITH AUTO DIFFERENTIALon 01-29-2023 Basophils (Bld) [#/Vol] 0.06 10*3/uL Normal 0.00-0.20 [facility] Comment on above: Performed By: #### L [id number] #### [facility] ([facility]) [address] [place] [address] Basophils/100 WBC (Bld) 0.8 % Normal 0.0-1.0 [facility] Comment on above: Performed By: #### L [id number] #### [facility] ([facility]) [address] [address] Eosinophils (Bld) [#/Vol] 0.23 10*3/uL Normal 0.00-0.50 [facility] Comment on above: Performed By: #### L [id number] #### [facility] ([facility]) [address] [address] Eosinophils/100 WBC (Bld) 3.0 % Normal 0.0-6.0 [facility] Comment on above: Performed By: #### L [id number] #### [facility] ([facility]) [address] [address] Erythrocyte distribution width (RBC) [Ratio] 17.6 % High 11.5-15.0 [facility] Comment on above: Performed By: #### L [id number] #### [facility] ([facility]) [address] [address] ERYTHROCYTE MEAN CORPUSCULAR HEMOGLOBIN CONCENTRATION (G/DL) BY AUTOMATED 29.5 g/dL Low 32.0-35.0 [facility] Comment on above: Performed By: #### L [id number] #### [facility] (BEAKER) [address] [address] Hematocrit (Bld) [Volume fraction] 31.2 % Low 36.0-48.0 [facility] Comment on above: Performed By: #### L [id number] #### [facility] ([facility]) [address] [place] [address] Hemoglobin (Bld) [Mass/Vol] 9.2 g/dL Low 12.0-15.0 [facility] Comment on above: Performed By: #### L [id number] #### [facility] ([facility]) [address] [address] Immature granulocytes (Bld) [#/Vol] 0.09 10*3/uL Normal 0.00-0.20 [facility] Comment on above: Performed By: #### L [id number] #### [facility] ([facility]) [address] [address] Immature granulocytes/100 WBC (Bld) 1.2 % High 0.0-1.0 [facility] Comment on above: Performed By: #### L [id number] #### [facility] ([facility]) [address] [address] Lymphocytes (Bld) [#/Vol] 1.24 10*3/uL Normal 1.20-4.00 [facility] Comment on above: Performed By: #### L [id number] #### [facility] ([facility]) [address] [place] [address] Lymphocytes/100 WBC (Bld) 16.1 % Low 20.0-45.0 [facility] Comment on above: Performed By: #### L [id number] #### [facility] ([facility]) [address] [address] MCH (RBC) [Entitic mass] 26.9 pg Low 27.0-33.0 [facility] Comment on above: Performed By: #### L [id number] #### [facility] ([facility]) [address] [place] [address] MCV (RBC) [Entitic vol] 91.2 fL Normal 82.0-98.0 U [facility] Comment on above: Performed By: #### L [id number] #### [facility] ([facility]) [address] [place] [address] Monocytes (Bld) [#/Vol] 0.97 10*3/uL Normal 0.10-1.00 [facility] Comment on above: Performed By: #### L [id number] #### [facility] ([facility]) [address] [place] [address] Monocytes/100 WBC (Bld) 12.6 % High 5.0-12.0 U [facility] Comment on above: Performed By: #### L [id number] #### [facility] ([facility]) [address] [place] [address] Neutrophils (Bld) [#/Vol] 5.11 10*3/uL Normal 1.60-7.60 [facility] Comment on above: Performed By: #### L [id number] #### [facility] ([facility]) [address] [place] [address] Neutrophils/100 WBC (Bld) 66.3 % Normal 40.0-72.0 [facility] Comment on above: Performed By: #### L [id number] #### [facility] ([facility]) [address] [place] [address] NRBC (PER 100 WBCS) BY AUTOMATED COUNT 0.0 % Normal 0 [facility] Comment on above: Performed By: #### L [id number] #### [facility] ([facility]) [address] [place] [address] PLATELETS (10*3/UL) IN BLOOD AUTOMATED COUNT 324 10*3/uL Normal 150-400 [facility] Comment on above: Performed By: #### L [id number] #### [facility] ([facility]) [address] [address] RBC (Bld) [#/Vol] 3.42 10*6/uL Low 3.80-5.00 [facility] Comment on above: Performed By: #### L [id number] #### [facility] (BEAKER) [address] [place] [address] WBC (Bld) [#/Vol] 7.70 10*3/uL Normal 4.00-10.60 [facility] Comment on above: Performed By: #### L [id number] #### [facility] ([facility]AKER) [address] [address] Documentationon 01-29-2023 Documentation [id number] Wilbert Wilson 1945 F Date Provider Department Center 01/29/[address]WAY [facility] C[facility] No family history on file Normal [facility] EDPROVon 01-29-2023 EDPROV HPI Chief Complaint Patient presents with Shortness of Breath Pt presents to ED with c/o SOB and 2+ minutes if vtach per the [facility] MATERIAL LOADER at cardio clinic. Pt is being evaluated for defibrillator. 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 Patient presents for evaluation after being notified that she had an episode of ventricular tachycardia. She reports that she has a Holter monitor and has been evaluated for possible pacemaker placement, she was contacted by nurse practitioner from the clinical laboratory aide office today and told that she had [...] and has not missed any recent sessions. Barbeau Coma Scale Score: 15 Patient History Past Medical History: Diagnosis Date CAD (coronary artery disease) 09/23/2021 COPD (chronic obstructive pulmonary disease) (CMS/HCC) 09/23/2021 Diastolic heart failure (CMS/[facility]) 09/23/2021 Dyspnea 09/23/2021 Edema 09/23/2021 Essential hypertension 09/23/2021 Hyperlipemia 09/23/2021 Kidney disease 09/23/2021 Orthopnea 09/23/2021 Primary malignant neoplasm ([facility]/HCC) 09/23/2021 Sleep apnea Type 1 diabetes ([facility]) 09/23/2021 Past Surgical History: Procedure Laterality Date [...] MDM ED Course as of 01/29/232245Jan 29, 2023 2039 Discussed case with cardiology, they are aware [...] Bruner Diagnoses as of 01/29/232245 Ventricular tachycardia ([facility]) Medical Decision Making Risk Risk Details: 2022 Emergency Medicine Coding Guide from [employer] on 01/29/2023 All calculations should be rechecked [...] management/testing w (more content not included)... Normal [facility] MAGNESIUMon 01-29-2023 Magnesium [Mass/Vol] 1.7 mg/dL Low 1.9-2.7 [facility] Comment on above: Performed By: #### L [id number] #### [facility] ([facility]) [address] [place] [address] POCT GLUCOSE METER UNSOLICIT ED RESULTSon 01-29-2023 Glucose [Mass/Vol] 244 mg/dL High 70-105 [facility] Comment on above: Order Comment: Waive d Testing in the ED is performed under the ED CLIA certificate #[id number]. Result Comment: [email or web address] lfu Critical Value Noted Performed By: #### L [id number] ####[facility] (BEAKER)[address] [place] [address] PROTIME-INRon 01-29-2023 INR IN PPP BY COAGULATION ASSAY 1.08 Normal 0.90-1.10 [facility] Comment on above: Result Comment: [facility] WARFARIN THERAPY CONDITION [...] CHEST 1995;108:231S-246S. Performed By: #### L [id number] #### [facility] ([facility]) [address] [place] [address] PROTHROMBIN TIME (PT) IN PPP BY COAGULATION ASSAY 14.0 Seconds Normal 12.3-14.8 [facility] Comment on above: Performed By: #### L [id number] #### [facility] ([facility]) [address] [place] [address] TROPONIN Ion 01-29-2023 Troponin I.cardiac [Mass/Vol] 0.03 ng/mL Normal 0.00-0.04 [facility] Comment on above: Performed By: #### L [id number] #### [facility] ([facility]) [address] [place] [address] Office Visiton 01-06-2023 Follow-up visit [id number] Wilbert Wilson 1945 F Date Provider Department Center 01/06/2023 AvIsaac-RYAN AHUJA CARD [facility] No family history on file Level of Service:05939 RI OFFICE/OUTPATIENT ESTABLISHED MOD MDM 30-39 MIN Normal [facility] Alanine aminotransferase [En zymatic activity/volume] in Serum or PlasmaOrdered By: Carlton Mtz on 01-02-2023 ALT [Catalytic activity/Vol] 27 U/L Normal 7-52 [facility] Comment on above: Performed By: #### S CAN CBC, CMP ####[facility] [id number] [place] [id number] [facility] Albumin [Mass/volume] in Ser um or Plasma by Bromocresol green (BCG) dye binding methoOrdered By: Carlton Mtz on 01-02-2023 Albumin BCG dye [Mass/Vol] 3.1 g/dL 3.5-5.7 [facility] Alkaline phosphatase [Enzyma tic activity/volume] in Serum or PlasmaOrdered By: Carlton Mtz on 01-02-2023 ALP [Catalytic activity/Vol] 170 U/L High 34-104 [facility] Comment on above: Performed By: #### S CAN CBC, CMP ####[place] [address] [place] [id number] [facility] Anisocytosis [Presence] in B lood by Light microscopyOrdered By: Carlton Mtz on 01-02-2023 Anisocytosis Ql (Bld) Slight Normal [facility] Comment on above: Performed By: #### S CAN CBC, CMP ####[facility] [place] [address] [facility] Aspartate aminotransferase [ Enzymatic activity/volume] in Serum or PlasmaOrdered By: Carlton Mtz on 01-02-2023 AST [Catalytic activity/Vol] 18 U/L Normal 13-39 [facility] Comment on above: Performed By: #### S CAN CBC, CMP ####[place] [address] [place] [address] [place] Automated basophil %Ordered By: Carlton Mtz on 01-02-2023 Basophils/100 WBC (Bld) 0.1 % Normal . F [facility] Comment on above: Performed By: #### S CAN CBC, CMP ####[address] Automated basophil countOrde red By: Carlton Mtz on 01-02-2023 Basophils (Bld) [#/Vol] 0.0 10*3/uL Normal 0.0-0.2 [facility] Comment on above: Result Comment: PERF ORMED BY:[address] [place], [place] [phone] MEDICAL DIRECTORRAMEZ LARSON M.D. Performed By: #### S CAN CBC, CMP ####[address] Automated blood monocyte cou ntOrdered By: Carlton Mtz on 01-02-2023 Monocytes (Bld) [#/Vol] 1.0 10*3/uL High 0.0-0.8 [facility] Comment on above: Performed By: #### S CAN CBC, CMP ####[address] Automated eosinophil %Ordere d By: Carlton Mtz on 01-02-2023 Eosinophils/100 WBC (Bld) 0.0 % Normal . [facility] Comment on above: Performed By: #### S CAN CBC, CMP ####[address] Automated eosinophil countOr dered By: Carlton Mtz on 01-02-2023 Eosinophils (Bld) [#/Vol] 0.0 10*3/uL Normal 0.0-0.45 [facility] Comment on above: Performed By: #### S CAN CBC, CMP ####[address] Automated monocyte %Ordered By: Carlton tMz on 01-02-2023 Monocytes/100 WBC (Bld) 9.4 % Normal . F [facility] Comment on above: Performed By: #### S CAN CBC, CMP ####[address] Automated neutrophil %Ordere d By: Carlton Mtz on 01-02-2023 Neutrophils/100 WBC (Bld) 80.8 % Normal . [facility] Comment on above: Performed By: #### S CAN CBC, CMP ####[address] Bilirubin.total [Mass/volume ] in Serum or PlasmaOrdered By: Carlton Mtz on 01-02-2023 Bilirubin [Mass/Vol] 0.3 mg/dL Normal 0.3-1.0 [facility] Comment on above: Performed By: #### S CAN CBC, CMP ####[address] Calcium [Mass/volume] in Ser um or PlasmaOrdered By: Carlton Mtz on 01-02-2023 Calcium [Mass/Vol] 9.3 mg/dL Normal 8.6-10.3 [facility] Comment on above: Performed By: #### S CAN CBC, CMP ####[address] Capillary blood glucose eugenie urement by glucometer (mass/volume)Ordered By: Tatiana Loya on 01-02-2023 Glucose [Mass/Vol] 290 mg/dL Normal [facility] Comment on above: Random Glucose Refer ence Range is dependent on time and content of last meal. Glucose of more than 200 mg/dL in a nonstressed, ambulatory subject supports the diagnosis of Diabetes Mellitus. Result Comment: [place] om Glucose Reference Range is dependent on time and content of last meal. Glucose of more than 200 mg/dL in a nonstressed, ambulatory subject supports the diagnosis of Diabetes Mellitus. Performed By: #### G LULS ####Point of Care testing, Carbon dioxide, total [Moles /volume] in Serum or PlasmaOrdered By: Carlton Mtz on 01-02-2023 CO2 [Moles/Vol] 29.5 mmol/L Normal 21.0-31.0 [facility] Comment on above: Performed By: #### S CAN CBC, CMP ####[place] [address] [place] [address] [facility] Chloride [Moles/volume] in S steffanie or PlasmaOrdered By: Carlton Mtz on 01-02-2023 Chloride [Moles/Vol] 93 mmol/L Low 98-107 [facility] Comment on above: Performed By: #### S CAN CBC, CMP ####[place] [address] [place] [address] [facility] Comprehensive Metabolic Pane eliseo 01-02-2023 Albumin [Mass/Vol] 3.1 g/dL Low 3.5-5.7 [facility] Comment on above: Performed By: #### S CAN CBC, CMP ####[place] [address] [place] [address] [facility] Creatinine Clr Calc Pharmacy 14.33 Normal [facility] Comment on above: Result Comment: PERF ORMED BY:[address] [place], [place] [id number] MEDICAL DIRECTORRAMEZ LARSON M.D. Performed By: #### S CAN CBC, CMP ####[place] [address] [place] [address] [facility] GFR/1.73 sq M.predicted MDRD (S/P/Bld) [Vol rate/Area] 16.172 mL/min/{1.73_m2} Normal [facility] Comment on above: Performed By: #### S CAN CBC, CMP ####[place] [address] [place] [address] [facility] Creatinine [Mass/volume] in Serum or PlasmaOrdered By: Carlton Mtz on 01-02-2023 Creatinine [Mass/Vol] 2.93 mg/dL Significan t change up 0.60-1.20 [facility] Comment on above: Delta: 4.45 on 01/01 Performed By: #### S CAN CBC, CMP ####[place] [address] [place] [address] [facility] Erythrocyte distribution wid th [Ratio] by Automated countOrdered By: Carlton Mtz on 01-02-2023 Erythrocyte distribution width (RBC) [Ratio] 17.2 % High 11.9-15.3 [facility] Comment on above: Performed By: #### S CAN CBC, CMP ####[place] [id number] [facility] Erythrocytes [#/volume] in B lood by Automated countOrdered By: Carlton Mtz on 01-02-2023 RBC (Bld) [#/Vol] 3.37 10*6/uL Low 3.60-5.00 [facility] Comment on above: Performed By: #### S CAN CBC, CMP ####[place] [id number] [facility] Glucose Poct Glucometerson 1 03-04-2022 Commemt1 Glu2: Cleaned Meter Normal [facility] Comment on above: Result Comment: PERF ORMED BY:[address] [place] [phone] MEDICAL DIRECTORRAMEZ LARSON M.D. Performed By: #### G DAVID ####Point of Care testing, Glucose [Mass/volume] in Ser um or PlasmaOrdered By: Carlton Mtz on 01-02-2023 Glucose [Mass/Vol] 209 mg/dL High 70-100 [facility] Comment on above: ADA recommended refe rence rangeRandom Glucose Reference Range is dependent on time and content of last meal. Glucose of more than 200 mg/dL in a nonstressed, ambulatory subject supports the diagnosis of Diabetes Mellitus. Result Comment: [place] om Glucose Reference Range is dependent on time and content of last meal. Glucose of more than 200 mg/dL in a nonstressed, ambulatory subject supports the diagnosis of Diabetes Mellitus. ADA recommended reference range Performed By: #### S CAN CBC, CMP ####[place] [id number] [facility] Hematocrit [Volume Fraction] of Blood by Automated countOrdered By: Carlton Mtz on 01-02-2023 Hematocrit (Bld) [Volume fraction] 30.2 % Low 34.0-46.4 [facility] Comment on above: Performed By: #### S CAN CBC, CMP ####[place] [address] Hemoglobin [Mass/volume] in BloodOrdered By: Carlton Mtz on 01-02-2023 Hemoglobin (Bld) [Mass/Vol] 9.5 g/dL Low 11.8-15.4 [facility] Comment on above: Performed By: #### S CAN CBC, CMP ####[address] Hypochromia LM Ql (Bld)Order ed By: Carlton Mtz on 01-02-2023 Hypochromia Ql (Bld) Slight [facility] Leukocytes [#/volume] correc tr for nucleated erythrocytes in Blood by Automated counOrdered By: Carlton Mtz on 01-02-2023 WBC corrected for nucl RBC Auto (Bld) [#/Vol] 10.5 10*3/uL 3.8-11.6 [facility] Leukocytes [#/volume] in Blo od by Automated countOrdered By: Carlton Mtz on 01-02-2023 WBC (Bld) [#/Vol] 10.5 10*3/uL Normal 3.8-11.6 [facility] Comment on above: Performed By: #### S CAN CBC, CMP ####[address] Lymphocytes [#/volume] in Bl ood by Automated countOrdered By: Carlton Mtz on 01-02-2023 Lymphocytes (Bld) [#/Vol] 1.0 10*3/uL Normal 1.00-4.8 [facility] Comment on above: Performed By: #### S CAN CBC, CMP ####[place] [address] [place] Lymphocytes/100 leukocytes i n Blood by Automated countOrdered By: Carlton Mtz on 01-02-2023 Lymphocytes/100 WBC (Bld) 9.7 % Normal . [facility] Comment on above: Performed By: #### S CAN CBC, CMP ####[place] [address] MCH [Entitic mass] by Automa tr countOrdered By: Carlton Mtz on 01-02-2023 MCH (RBC) [Entitic mass] 28.2 pg Normal 24.7-34.3 [facility] Comment on above: Performed By: #### S CAN CBC, CMP ####[address] MCHC Auto (RBC) [Mass/Vol]Or dered By: Carlton Mtz on 01-02-2023 MCHC (RBC) [Mass/Vol] 31.5 g/dL 32.0-35.0 [facility] MCV [Entitic volume] by Auto mated countOrdered By: Carlton Mtz on 01-02-2023 MCV (RBC) [Entitic vol] 89.5 fL Normal 80-[address] [facility] Comment on above: Performed By: #### S CAN CBC, CMP ####[address] Neutrophils [#/volume] in Bl ood by Automated countOrdered By: Carlton Mtz on 01-02-2023 Neutrophils (Bld) [#/Vol] 8.5 10*3/uL High 1.8-7.7 [facility] Comment on above: Performed By: #### S CAN CBC, CMP ####[address] No Panel InformationOrdered By: Tatiana Loya on 01-02-2023 Bedside Glucose Comment Glu2: cleaned meter [facility] No Panel InformationOrdered By: Carlton Mtz on 01-02-2023 Estimated GFR (CKD-EPI) 16.172 mL/Min [facility] Creatinine Clearance (Chem 14.33 [facility] Nucleated erythrocytes [Pres ence] in Blood by Automated countOrdered By: Carlton Mtz on 01-02-2023 Nucleated RBC Auto Ql (Bld) 0.0 /100{WBC} 0-0.5 [facility] Platelet adequacy [Presence] in Blood by Light microscopyOrdered By: Carlton Mtz on 01-02-2023 Platelets LM Ql (Bld) Normal Normal [facility] Platelet mean volume [Entiti c volume] in Blood by Automated countOrdered By: Carlton Mtz on 01-02-2023 Platelet mean volume (Bld) [Entitic vol] 7.1 fL Normal 6.3-10.7 [facility] Comment on above: Performed By: #### S CAN CBC, CMP ####[address] Platelet morphology finding [Identifier] in BloodOrdered By: Carlton Mtz on 01-02-2023 Platelet morphology finding Nom (Bld) Normal Normal [facility] Platelets [#/volume] in Bloo d by Automated countOrdered By: Carlton Mtz on 01-02-2023 Platelets (Bld) [#/Vol] 424 10*3/uL Normal 150-450 [facility] Comment on above: Performed By: #### S CAN CBC, CMP ####[place] [id number] [place] Potassium [Moles/volume] in Serum or PlasmaOrdered By: Carlton Mtz on 01-02-2023 Potassium [Moles/Vol] 3.7 mmol/L Normal 3.5-5.1 [facility] Comment on above: Performed By: #### S CAN CBC, CMP ####[place] [id number] [facility] Protein [Mass/volume] in Ser um or PlasmaOrdered By: Carlton Mtz on 01-02-2023 Protein [Mass/Vol] 6.3 g/dL Low 6.4-8.9 [facility] Comment on above: Performed By: #### S CAN CBC, CMP ####[address] RBC morphologyOrdered By: Ted Mtz on 01-02-2023 RBC morphology finding Nom (Bld) N/A [facility] Scan and CBCon 01-02-2023 Hypochromasia Slight Normal [facility] Comment on above: Performed By: #### S CAN CBC, CMP ####[address] Mean Corpuscular HGB Conc 31.5 g/dL Low 32.0-35.0 [facility] Comment on above: Performed By: #### S CAN CBC, CMP ####[place] [address] NRBC% 0.0 /100{WBC} Normal 0-0.5 [facility] Comment on above: Performed By: #### S CAN CBC, CMP ####[address] Platelet Estimate Normal Normal Normal [facility] Comment on above: Performed By: #### S CAN CBC, CMP ####[address] Platelet Morphology Normal Normal Normal [facility] Comment on above: Result Comment: PERF ORMED BY:[address] [place], [place] [phone] MEDICAL MAJOR LARSON M.D. Performed By: #### S CAN CBC, CMP ####[address] Serum globulin measurement b y calculation (mass/volume)Ordered By: Carlton Mtz on 01-02-2023 Globulin (S) [Mass/Vol] 3.2 g/dL Normal F [facility] Comment on above: Performed By: #### S CAN CBC, CMP ####[address] Serum or plasma albumin/glob ulin mass ratioOrdered By: Carlton Mtz on 01-02-2023 Albumin/Globulin [Mass ratio] 1.0 {ratio} Normal [facility] Comment on above: Performed By: #### S CAN CBC, CMP ####[place] [address] [place] [id number] [facility] Serum or plasma anion gap de terminationOrdered By: Carlton Mtz on 01-02-2023 Anion gap [Moles/Vol] 13.2 mmol/L Normal 6.0-15.0 [facility] Comment on above: Performed By: #### S CAN CBC, CMP ####[address] Sodium [Moles/volume] in Ser um or PlasmaOrdered By: Carlton Mtz on 01-02-2023 Sodium [Moles/Vol] 132 mmol/L Low 136-145 [facility] Comment on above: Performed By: #### S CAN CBC, CMP ####[place] [id number] [facility] Urea nitrogen [Mass/volume] in Serum or PlasmaOrdered By: Carlton Mtz on 01-02-2023 Urea nitrogen [Mass/Vol] 37 mg/dL High 7-25 [facility] Comment on above: Performed By: #### S CAN CBC, CMP ####[place] [id number] [facility] Complete Blood Count Auto Di ffon 01-01-2023 Basophils (Bld) [#/Vol] 0.0 10*3/uL Normal 0.0-0.2 [facility] Comment on above: Result Comment: PERF ORMED BY:[place] [address] [place] [id number] MEDICAL DIRECTORRAMEZ LARSON M.D. Performed By: #### C BC, CMP ####[place] [id number] [place] Basophils/100 WBC (Bld) 0.1 % Normal . T [facility] Comment on above: Performed By: #### C BC, CMP ####[place] [id number] [facility] Eosinophils (Bld) [#/Vol] 0.0 10*3/uL Normal 0.0-0.45 [facility] Comment on above: Performed By: #### C BC, CMP ####[place] [id number] [facility] Eosinophils/100 WBC (Bld) 0.0 % Normal . [facility] Comment on above: Performed By: #### C REBECCA, CMP ####[place] [id number] [facility] Erythrocyte distribution width (RBC) [Ratio] 17.3 % High 11.9-15.3 [facility] Comment on above: Performed By: #### C REBECCA, CMP ####[address] Hematocrit (Bld) [Volume fraction] 31.5 % Low 34.0-46.4 [facility] Comment on above: Performed By: #### C REBECCA, CMP ####[place] [id number] [facility] Hemoglobin (Bld) [Mass/Vol] 9.8 g/dL Low 11.8-15.4 [facility] Comment on above: Performed By: #### C REBECCA, CMP ####[place] [id number] [facility] Lymphocytes (Bld) [#/Vol] 0.7 10*3/uL Low 1.00-4.8 [facility] Comment on above: Performed By: #### C BC, CMP ####[place] [id number] [facility] Lymphocytes/100 WBC (Bld) 6.5 % Normal . [facility] Comment on above: Performed By: #### C BC, CMP ####[place] [id number] [facility] MCH (RBC) [Entitic mass] 27.8 pg Normal 24.7-34.3 [facility] Comment on above: Performed By: #### C BC, CMP ####[address] MCV (RBC) [Entitic vol] 89.1 fL Normal 80-100 [facility] Comment on above: Performed By: #### C BC, CMP ####[address] Mean Corpuscular HGB Conc 31.2 g/dL Low 32.0-35.0 [facility] Comment on above: Performed By: #### C BC, CMP ####[address] Monocytes (Bld) [#/Vol] 0.6 10*3/uL Normal 0.0-0.8 [facility] Comment on above: Performed By: #### C REBECCA, CMP ####[address] Monocytes/100 WBC (Bld) 5.9 % Normal . [facility] Comment on above: Performed By: #### C REBECCA, CMP ####[address] Neutrophils (Bld) [#/Vol] 8.8 10*3/uL High 1.8-7.7 [facility] Comment on above: Performed By: #### C REBECCA, CMP ####[place] [id number] [facility] Neutrophils/100 WBC (Bld) 87.5 % Normal . [facility] Comment on above: Performed By: #### C REBECCA, CMP ####[place] [id number] [facility] NRBC% 0.0 /100{WBC} Normal 0-0.5 [facility] Comment on above: Performed By: #### C BC, CMP ####[address] Platelet mean volume (Bld) [Entitic vol] 7.5 fL Normal 6.3-10.7 [facility] Comment on above: Performed By: #### C BC, CMP ####[place] [id number] [facility] Platelets (Bld) [#/Vol] 443 10*3/uL Normal 150-450 [facility] Comment on above: Performed By: #### C BC, CMP ####[address] RBC (Bld) [#/Vol] 3.53 10*6/uL Low 3.60-5.00 [facility] Comment on above: Performed By: #### C REBECCA, CMP ####[place] [id number] [facility] WBC (Bld) [#/Vol] 10.1 10*3/uL Normal 3.8-11.6 [facility] Comment on above: Performed By: #### C REBECCA, CMP ####[place] [id number] [facility] Comprehensive Metabolic Pane eliseo 01-01-2023 Albumin [Mass/Vol] 3.2 g/dL Low 3.5-5.7 [facility] Comment on above: Performed By: #### C REBECCA, CMP ####[place] [id number] [facility] Albumin/Globulin [Mass ratio] 0.9 {ratio} Normal [facility] Comment on above: Performed By: #### C REBECCA, CMP ####[place] [id number] [facility] ALP [Catalytic activity/Vol] 167 U/L High 34-104 [facility] Comment on above: Performed By: #### C REBECCA, CMP ####[place] [id number] [facility] ALT [Catalytic activity/Vol] 33 U/L Normal 7-52 [facility] Comment on above: Performed By: #### C BC, CMP ####[place] [id number] [facility] Anion gap [Moles/Vol] 15.6 mmol/L High 6.0-15.0 Th e [facility] Comment on above: Performed By: #### C BC, CMP ####[address] [address] [facility] AST [Catalytic activity/Vol] 27 U/L Normal 13-39 [facility] Comment on above: Performed By: #### C BC, CMP ####[address] [address] [facility] Bilirubin [Mass/Vol] 0.3 mg/dL Normal 0.3-1.0 [facility] Comment on above: Performed By: #### C BC, CMP ####[address] [address] [facility] Calcium [Mass/Vol] 9.8 mg/dL Normal 8.6-10.3 [facility] Comment on above: Performed By: #### C BC, CMP ####[address] [address] [facility] Chloride [Moles/Vol] 91 mmol/L Low 98-107 [facility] Comment on above: Performed By: #### C BC, CMP ####[address] [address] [facility] CO2 [Moles/Vol] 26.4 mmol/L Normal 21.0-31.0 [facility] Comment on above: Performed By: #### C BC, CMP ####[address] [address] [facility] Creatinine [Mass/Vol] 4.45 mg/dL Significan t change up 0.60-1.20 [facility] Comment on above: Performed By: #### C BC, CMP ####[address] [address] [facility] Creatinine Clr Calc Pharmacy 9.43 Normal [facility] Comment on above: Result Comment: PERF ORMED BY:[address] [place], [place] [phone] MEDICAL DIRECTORRAMEZ LARSON M.D. Performed By: #### C BC, CMP ####[address] [address] [facility] GFR/1.73 sq M.predicted MDRD (S/P/Bld) [Vol rate/Area] 9.794 mL/min/{1.73_m2} Normal [facility] Comment on above: Performed By: #### C BC, CMP ####[place] [id number] [facility] Globulin (S) [Mass/Vol] 3.6 g/dL Normal T he [facility] Comment on above: Performed By: #### C BC, CMP ####[place] [id number] [facility] Glucose [Mass/Vol] 227 mg/dL High 70-100 [facility] Comment on above: Result Comment: [facility] Glucose Reference Range is dependent on time and content of last meal. Glucose of more than 200 mg/dL in a nonstressed, ambulatory subject supports the diagnosis of Diabetes Mellitus. ADA recommended reference range Performed By: #### C BC, CMP ####[place] [id number] [facility] Potassium [Moles/Vol] 4.0 mmol/L Normal 3.5-5.1 [facility] Comment on above: Performed By: #### C BC, CMP ####[place] [id number] [facility] Protein [Mass/Vol] 6.8 g/dL Normal 6.4-8.9 [facility] Comment on above: Performed By: #### C BC, CMP ####[place] [id number] [facility] Sodium [Moles/Vol] 129 mmol/L Low 136-145 [facility] Comment on above: Performed By: #### C BC, CMP ####[place] [id number] [facility] Urea nitrogen [Mass/Vol] 57 mg/dL High 7-25 [facility] Comment on above: Performed By: #### C BC, CMP ####[place] [id number] [facility] Glucose Poct Glucometerson 1 03-03-2022 Commemt1 Normal [facility] Comment on above: Result Comment: Glu2 : WILL NOTIFY /OLIVERERFORMED BY:[place] [address] [place] [place], [place] [id number] MEDICAL MAJOR LARSON M.D. Performed By: #### G LULS ####Point of Care testing, Glucose [Mass/Vol] 482 mg/dL Off scale high Th e [facility] Comment on above: Result Comment: [place] om Glucose Reference Range is dependent on time and content of last meal. Glucose of more than 200 mg/dL in a nonstressed, ambulatory subject supports the diagnosis of Diabetes Mellitus. Performed By: #### G LULS ####Point of Care testing, Glucose [Mass/Vol] 380 mg/dL Normal [facility] Comment on above: Result Comment: [place] om Glucose Reference Range is dependent on time and content of last meal. Glucose of more than 200 mg/dL in a nonstressed, ambulatory subject supports the diagnosis of Diabetes Mellitus.PERFORMED BY:[address] [place], [place] [phone] MEDICAL DIRECTORRAMEZ LARSON M.D. Performed By: #### G LULS ####Point of Care testing, Glucose [Mass/Vol] 165 mg/dL Normal [facility] Comment on above: Result Comment: [place] om Glucose Reference Range is dependent on time and content of last meal. Glucose of more than 200 mg/dL in a nonstressed, ambulatory subject supports the diagnosis of Diabetes Mellitus.PERFORMED BY:[place] [address] [place], [place] [phone] MEDICAL MAJOR LARSON M.D. Performed By: #### G LULS ####Point of Care testing, Glucose [Mass/Vol] 193 mg/dL Normal [facility] Comment on above: Result Comment: [place] om Glucose Reference Range is dependent on time and content of last meal. Glucose of more than 200 mg/dL in a nonstressed, ambulatory subject supports the diagnosis of Diabetes Mellitus.PERFORMED BY:[place] [address] [address], [place] [id number] MEDICAL DIRECTORRAMEZ LARSON M.D. Performed By: #### G DAVID ####Point of Care testing, Complete Blood Count Auto Di ffon 12-31-2022 Basophils (Bld) [#/Vol] 0.0 10*3/uL Normal 0.0-0.2 [facility] Comment on above: Result Comment: PERF ORMED BY:[address] [place] [address] [place] [place], [place] [phone] MEDICAL DIRECTORRAMEZ LARSON M.D. Performed By: #### C MP, CBC ####[place] [id number] [facility] Basophils/100 WBC (Bld) 0.1 % Normal . [facility] Comment on above: Performed By: #### C MP, CBC ####[address] Eosinophils (Bld) [#/Vol] 0.0 10*3/uL Normal 0.0-0.45 [facility] Comment on above: Performed By: #### C MP, CBC ####[address] Eosinophils/100 WBC (Bld) 0.0 % Normal . [facility] Comment on above: Performed By: #### C MP, CBC ####[address] Erythrocyte distribution width (RBC) [Ratio] 17.7 % High 11.9-15.3 [facility] Comment on above: Performed By: #### C MP, CBC ####[place] [id number] [facility] Hematocrit (Bld) [Volume fraction] 30.9 % Low 34.0-46.4 [facility] Comment on above: Performed By: #### C MP, CBC ####[address] Hemoglobin (Bld) [Mass/Vol] 9.7 g/dL Low 11.8-15.4 [facility] Comment on above: Performed By: #### C MP, CBC ####[address] Lymphocytes (Bld) [#/Vol] 0.3 10*3/uL Low 1.00-4.8 [facility] Comment on above: Performed By: #### C MP, CBC ####[address] Lymphocytes/100 WBC (Bld) 4.3 % Normal . [facility] Comment on above: Performed By: #### C MP, CBC ####[address] MCH (RBC) [Entitic mass] 28.1 pg Normal 24.7-34.3 [facility] Comment on above: Performed By: #### C MP, CBC ####[address] MCV (RBC) [Entitic vol] 89.8 fL Normal 80-100 [facility] Comment on above: Performed By: #### C MP, CBC ####[address] Mean Corpuscular HGB Conc 31.3 g/dL Low 32.0-35.0 [facility] Comment on above: Performed By: #### C MP, CBC ####[address] Monocytes (Bld) [#/Vol] 0.3 10*3/uL Normal 0.0-0.8 [facility] Comment on above: Performed By: #### C MP, CBC ####[address] Monocytes/100 WBC (Bld) 4.1 % Normal . [facility] Comment on above: Performed By: #### C MP, CBC ####[address] Neutrophils (Bld) [#/Vol] 6.7 10*3/uL Normal 1.8-7.7 [facility] Comment on above: Performed By: #### C MP, CBC ####[address] Neutrophils/100 WBC (Bld) 91.5 % Normal . [facility] Comment on above: Performed By: #### C MP, CBC ####[address] NRBC% 0.1 /100{WBC} Normal 0-0.5 [facility] Comment on above: Performed By: #### C MP, CBC ####[address] Platelet mean volume (Bld) [Entitic vol] 7.8 fL Normal 6.3-10.7 [facility] Comment on above: Performed By: #### C MP, CBC ####[address] Platelets (Bld) [#/Vol] 409 10*3/uL Normal 150-450 [facility] Comment on above: Performed By: #### C MP, CBC ####[address] RBC (Bld) [#/Vol] 3.44 10*6/uL Low 3.60-5.00 [facility] Comment on above: Performed By: #### C MP, CBC ####[address] WBC (Bld) [#/Vol] 7.3 10*3/uL Normal 3.8-11.6 [facility] Comment on above: Performed By: #### C MP, CBC ####[address] Comprehensive Metabolic Pane eliseo 12-31-2022 Albumin [Mass/Vol] 3.2 g/dL Low 3.5-5.7 [facility] Comment on above: Performed By: #### C MP, CBC ####[address] Albumin/Globulin [Mass ratio] 0.9 {ratio} Normal [facility] Comment on above: Performed By: #### C MP, CBC ####[place] [id number] [facility] ALP [Catalytic activity/Vol] 157 U/L High 34-104 [facility] Comment on above: Performed By: #### C MP, CBC ####[place] [id number] [facility] ALT [Catalytic activity/Vol] 23 U/L Normal 7-52 [facility] Comment on above: Performed By: #### C MP, CBC ####[place] [id number] [facility] Anion gap [Moles/Vol] 15.3 mmol/L High 6.0-15.0 Th e [facility] Comment on above: Performed By: #### C MP, CBC ####[address] AST [Catalytic activity/Vol] 21 U/L Normal 13-39 [facility] Comment on above: Performed By: #### C MP, CBC ####[place] [id number] [facility] Bilirubin [Mass/Vol] 0.4 mg/dL Normal 0.3-1.0 [facility] Comment on above: Performed By: #### C MP, CBC ####[place] [id number] [facility] Calcium [Mass/Vol] 9.7 mg/dL Normal 8.6-10.3 [facility] Comment on above: Performed By: #### C MP, CBC ####[place] [id number] [facility] Chloride [Moles/Vol] 93 mmol/L Low 98-107 [facility] Comment on above: Performed By: #### C MP, CBC ####[place] [phone] [facility] CO2 [Moles/Vol] 27.5 mmol/L Normal 21.0-31.0 [facility] Comment on above: Performed By: #### C MP, CBC ####[place] [id number] [facility] Creatinine [Mass/Vol] 3.40 mg/dL Significan t change up 0.60-1.20 [facility] Comment on above: Performed By: #### C MP, CBC ####[place] [id number] [facility] Creatinine Clr Calc Pharmacy 12.35 Normal [facility] Comment on above: Result Comment: PERF ORMED BY:[address] [place], [place] [phone] MEDICAL DIRECTORRAMEZ LARSON M.D. Performed By: #### C MP, CBC ####[address] GFR/1.73 sq M.predicted MDRD (S/P/Bld) [Vol rate/Area] 13.528 mL/min/{1.73_m2} Normal [facility] Comment on above: Performed By: #### C MP, CBC ####[place] [id number] [facility] Globulin (S) [Mass/Vol] 3.7 g/dL Normal T he [facility] Comment on above: Performed By: #### C MP, CBC ####[place] [id number] [facility] Glucose [Mass/Vol] 255 mg/dL Significant change up 70-100 [facility] Comment on above: Result Comment: [place] Glucose Reference Range is dependent on time and content of last meal. Glucose of more than 200 mg/dL in a nonstressed, ambulatory subject supports the diagnosis of Diabetes Mellitus. ADA recommended reference range Performed By: #### C MP, CBC ####[address] Potassium [Moles/Vol] 3.8 mmol/L Normal 3.5-5.1 [facility] Comment on above: Performed By: #### C MP, CBC ####[address] [address] [facility] Protein [Mass/Vol] 6.9 g/dL Normal 6.4-8.9 [facility] Comment on above: Performed By: #### C MP, CBC ####[place] [id number] [facility] Sodium [Moles/Vol] 132 mmol/L Significant change down 136-145 [facility] Comment on above: Performed By: #### C MP, CBC ####[address] Urea nitrogen [Mass/Vol] 36 mg/dL Significant change up 7-25 [facility] Comment on above: Performed By: #### C MP, CBC ####[address] Glucose Poct Glucometerson 1 03-02-2022 Commemt1 Normal [facility] Comment on above: Result Comment: Glu2 : WILL NOTIFY DR/OLIVERERFORMED BY:[address] [place], [place] [phone] MEDICAL DIRECTORRAMEZ LARSON M.D. Performed By: #### G LULS ####Point of Care testing, Glucose [Mass/Vol] 406 mg/dL Off scale high Th e [facility] Comment on above: Result Comment: [place] Glucose Reference Range is dependent on time and content of last meal. Glucose of more than 200 mg/dL in a nonstressed, ambulatory subject supports the diagnosis of Diabetes Mellitus. Performed By: #### G LULS ####Point of Care testing, Glucose [Mass/Vol] 397 mg/dL Normal [facility] Comment on above: Result Comment: [place] om Glucose Reference Range is dependent on time and content of last meal. Glucose of more than 200 mg/dL in a nonstressed, ambulatory subject supports the diagnosis of Diabetes Mellitus.PERFORMED BY:[place] [address] [place], [place] [phone] MEDICAL DIRECTORRAMEZ LARSON M.D. Performed By: #### G LULS ####Point of Care testing, Glucose [Mass/Vol] 246 mg/dL Normal [facility] Comment on above: Result Comment: [place] om Glucose Reference Range is dependent on time and content of last meal. Glucose of more than 200 mg/dL in a nonstressed, ambulatory subject supports the diagnosis of Diabetes Mellitus.PERFORMED BY:[address] [place]LuciaJ[place], [place] [phone] MEDICAL DIRECTORRAMEZ LARSON M.D. Performed By: #### G LULS ####Point of Care testing, Glucose [Mass/Vol] 225 mg/dL Normal [facility] Comment on above: Result Comment: [place] om Glucose Reference Range is dependent on time and content of last meal. Glucose of more than 200 mg/dL in a nonstressed, ambulatory subject supports the diagnosis of Diabetes Mellitus.PERFORMED BY:[address] [place], [place] [phone] MEDICAL DIRECTORRAMEZ LARSON M.D. Performed By: #### G LULS ####Point of Care testing, Glucose [Mass/Vol] 227 mg/dL Normal [facility] Comment on above: Result Comment: [place] om Glucose Reference Range is dependent on time and content of last meal. Glucose of more than 200 mg/dL in a nonstressed, ambulatory subject supports the diagnosis of Diabetes Mellitus.PERFORMED BY:[address] [place], [place] [phone] MEDICAL MAJOR LARSON M.D. Performed By: #### G LULS ####Point of Care testing, A1C with Estimated Average [facility] 12-30-2022 Glucose [Mass/Vol] 171 mg/dL Normal [facility] Comment on above: Result Comment: PERF ORMED BY:[address] [place]ORD[place]anreJ[place], [place] [phone] MEDICAL MAJOR LARSON M.D. Performed By: #### C MP, A1C WTH eA, LDH, CBC, RETIC, MAURICIO, FE and TIBC, [id number] ####[address] [address] [facility] Absolute reticulocyte countO rdered By: Carlton Mtz on 12-30-2022 Reticulocytes (Bld) [#/Vol] 0.052 10*6/uL 0.024-0.084 [facility] BioFire Not Detectedon 12-30 BioFire Not Detected Not detected Normal Not Detecte [facility] Comment on above: Result Comment: This is a duplicate RP2.1 COVID (PCR) result to be used for statistical tracking purpose only.PERFORMED BY:[address] [place], [place] [phone] MEDICAL DIRECTORRAMEZ LARSON M.D. Performed By: #### B IOFIRECOVNOTDE, RESP PANEL UPP. ####[address] [place] cardiac event monitoron 1 03-01-2022 CA cardiac event monitor Normal [facility] COVID-19 Detected/Not Detect edOrdered By: Carlton Smith on 12-30-2022 SARS-CoV-2 (COVID-19) RNA MADISON+non-probe Ql (Nph) Not detected Not Detecte [facility] Comment on above: This is a duplicate RP2.1 COVID (PCR) result to be used for statistical tracking purpose only. Complete Blood Count Auto Di ffon 12-30-2022 Basophils (Bld) [#/Vol] 0.0 10*3/uL Normal 0.0-0.2 [facility] Comment on above: Performed By: #### C MP, A1C WTH eA, LDH, CBC, RETIC, MAURICIO, FE and TIBC, [id number] ####[place] [id number] Basophils/100 WBC (Bld) 0.5 % Normal . T [facility] Comment on above: Performed By: #### C MP, A1C WTH eA, LDH, CBC, RETIC, MAURICIO, FE and TIBC, [id number] ####[address] Eosinophils (Bld) [#/Vol] 0.1 10*3/uL Normal 0.0-0.45 [facility] Comment on above: Performed By: #### C MP, A1C WTH eA, LDH, CBC, RETIC, MAURICIO, FE and TIBC, [id number] ####[address] Eosinophils/100 WBC (Bld) 1.7 % Normal . [facility] Comment on above: Performed By: #### C MP, A1C WTH eA, LDH, CBC, RETIC, MAURICIO, FE and TIBC, [id number] ####[address] Erythrocyte distribution width (RBC) [Ratio] 17.7 % High 11.9-15.3 [facility] Comment on above: Performed By: #### C MP, A1C WTH eA, LDH, CBC, RETIC, MAURICIO, FE and TIBC, [id number] ####[address] Hematocrit (Bld) [Volume fraction] 27.0 % Low 34.0-46.4 [facility] Comment on above: Performed By: #### C MP, A1C WTH eA, LDH, CBC, RETIC, MAURICIO, FE and TIBC, [id number] ####[address] Hemoglobin (Bld) [Mass/Vol] 8.5 g/dL Low 11.8-15.4 [facility] Comment on above: Performed By: #### C MP, A1C WTH eA, LDH, CBC, RETIC, MAURICIO, FE and TIBC, [id number] ####[address] Lymphocytes (Bld) [#/Vol] 1.1 10*3/uL Normal 1.00-4.8 [facility] Comment on above: Performed By: #### C MP, A1C WTH eA, LDH, CBC, RETIC, MAURICIO, FE and TIBC, [id number] ####[address] Lymphocytes/100 WBC (Bld) 13.1 % Normal . [facility] Comment on above: Performed By: #### C MP, A1C WTH eA, LDH, CBC, RETIC, MAURICIO, FE and TIBC, [id number] ####[address] MCH (RBC) [Entitic mass] 28.0 pg Normal 24.7-34.3 [facility] Comment on above: Performed By: #### C MP, A1C WTH eA, LDH, CBC, RETIC, MAURICIO, FE and TIBC, [id number] ####[address] MCV (RBC) [Entitic vol] 89.5 fL Normal 80-100 [facility] Comment on above: Performed By: #### C MP, A1C WTH eA, LDH, CBC, RETIC, MAURICIO, FE and TIBC, [id number] ####[address] Mean Corpuscular HGB Conc 31.3 g/dL Low 32.0-35.0 [facility] Comment on above: Performed By: #### C MP, A1C WTH eA, LDH, CBC, RETIC, MAURICIO, FE and TIBC, [id number] ####[address] Monocytes (Bld) [#/Vol] 1.2 10*3/uL High 0.0-0.8 [facility] Comment on above: Performed By: #### C MP, A1C WTH eA, LDH, CBC, RETIC, MAURICIO, FE and TIBC, [id number] ####[address] Monocytes/100 WBC (Bld) 13.6 % Normal . [facility] Comment on above: Performed By: #### C MP, A1C WTH eA, LDH, CBC, RETIC, MAURICIO, FE and TIBC, [id number] ####[address] Neutrophils (Bld) [#/Vol] 6.2 10*3/uL Normal 1.8-7.7 [facility] Comment on above: Performed By: #### C MP, A1C WTH eA, LDH, CBC, RETIC, MAURICIO, FE and TIBC, [id number] ####[address] Neutrophils/100 WBC (Bld) 71.1 % Normal . [facility] Comment on above: Performed By: #### C MP, A1C WTH eA, LDH, CBC, RETIC, MAURICIO, FE and TIBC, [id number] ####[address] NRBC% 0.0 /100{WBC} Normal 0-0.5 [facility] Comment on above: Performed By: #### C MP, A1C WTH eA, LDH, CBC, RETIC, MAURICIO, FE and TIBC, [id number] ####[address] Platelet mean volume (Bld) [Entitic vol] 7.2 fL Normal 6.3-10.7 [facility] Comment on above: Performed By: #### C MP, A1C WTH eA, LDH, CBC, RETIC, MAURICIO, FE and TIBC, [id number] ####[address] Platelets (Bld) [#/Vol] 386 10*3/uL Normal 150-450 [facility] Comment on above: Performed By: #### C MP, A1C WTH eA, LDH, CBC, RETIC, MAURICIO, FE and TIBC, [id number] ####[address] RBC (Bld) [#/Vol] 3.02 10*6/uL Low 3.60-5.00 [facility] Comment on above: Performed By: #### C MP, A1C WTH eA, LDH, CBC, RETIC, MAURICIO, FE and TIBC, [id number] ####[address] WBC (Bld) [#/Vol] 8.7 10*3/uL Normal 3.8-11.6 [facility] Comment on above: Performed By: #### C MP, A1C WTH eA, LDH, CBC, RETIC, MAURICIO, FE and TIBC, [id number] ####[address] Comprehensive Metabolic Pane eliseo 12-30-2022 Albumin [Mass/Vol] 3.0 g/dL Low 3.5-5.7 [facility] Comment on above: Performed By: #### C MP, A1C WTH eA, LDH, CBC, RETIC, MAURICIO, FE and TIBC, [id number] ####[address] Albumin/Globulin [Mass ratio] 1.0 {ratio} Normal [facility] Comment on above: Performed By: #### C MP, A1C WTH eA, LDH, CBC, RETIC, MAURICIO, FE and TIBC, [id number] ####[address] ALP [Catalytic activity/Vol] 159 U/L High 34-104 [facility] Comment on above: Performed By: #### C MP, A1C WTH eA, LDH, CBC, RETIC, MAURICIO, FE and TIBC, [id number] ####[address] ALT [Catalytic activity/Vol] 23 U/L Normal 7-52 [facility] Comment on above: Performed By: #### C MP, A1C WTH eA, LDH, CBC, RETIC, MAURICIO, FE and TIBC, [id number] ####[address] Anion gap [Moles/Vol] 17.4 mmol/L High 6.0-15.0 Th e [facility] Comment on above: Performed By: #### C MP, A1C WTH eA, LDH, CBC, RETIC, MAURICIO, FE and TIBC, [id number] ####[address] AST [Catalytic activity/Vol] 19 U/L Normal 13-39 [facility] Comment on above: Performed By: #### C MP, A1C WTH eA, LDH, CBC, RETIC, MAURICIO, FE and TIBC, [id number] ####[address] Bilirubin [Mass/Vol] 0.4 mg/dL Normal 0.3-1.0 [facility] Comment on above: Performed By: #### C MP, A1C WTH eA, LDH, CBC, RETIC, MAURICIO, FE and TIBC, [id number] ####[address] Calcium [Mass/Vol] 9.9 mg/dL Normal 8.6-10.3 [facility] Comment on above: Performed By: #### C MP, A1C WTH eA, LDH, CBC, RETIC, MAURICIO, FE and TIBC, [id number] ####[address] Chloride [Moles/Vol] 88 mmol/L Low 98-107 [facility] Comment on above: Performed By: #### C MP, A1C WTH eA, LDH, CBC, RETIC, MAURICIO, FE and TIBC, [id number] ####[address] CO2 [Moles/Vol] 25.0 mmol/L Normal 21.0-31.0 [facility] Comment on above: Performed By: #### C MP, A1C WTH eA, LDH, CBC, RETIC, MAURICIO, FE and TIBC, [id number] ####[address] Creatinine [Mass/Vol] 5.26 mg/dL Significan t change up 0.60-1.20 [facility] Comment on above: Performed By: #### C MP, A1C WTH eA, LDH, CBC, RETIC, MAURICIO, FE and TIBC, [id number] ####[place] [id number] [place] [phone] [facility] Creatinine Clr Calc Pharmacy 7.98 Normal [facility] Comment on above: Performed By: #### C MP, A1C WTH eA, LDH, CBC, RETIC, MAURICIO, FE and TIBC, [id number] ####[place] [phone] [facility] GFR/1.73 sq M.predicted MDRD (S/P/Bld) [Vol rate/Area] 8.014 mL/min/{1.73_m2} Normal [facility] Comment on above: Performed By: #### C MP, A1C WTH eA, LDH, CBC, RETIC, MAURICIO, FE and TIBC, [id number] ####[address] Globulin (S) [Mass/Vol] 3.0 g/dL Normal T he [facility] Comment on above: Performed By: #### C MP, A1C WTH eA, LDH, CBC, RETIC, MAURICIO, FE and TIBC, [id number] ####[address] Glucose [Mass/Vol] 146 mg/dL High 70-100 [facility] Comment on above: Result Comment: [facility] Glucose Reference Range is dependent on time and content of last meal. Glucose of more than 200 mg/dL in a nonstressed, ambulatory subject supports the diagnosis of Diabetes Mellitus. ADA recommended reference range Performed By: #### C MP, A1C WTH eA, LDH, CBC, RETIC, MAURICIO, FE and TIBC, [id number] ####[place] [id number] [facility] Potassium [Moles/Vol] 4.4 mmol/L Normal 3.5-5.1 [facility] Comment on above: Performed By: #### C MP, A1C WTH eA, LDH, CBC, RETIC, MAURICIO, FE and TIBC, [id number] ####[address] Protein [Mass/Vol] 6.0 g/dL Low 6.4-8.9 [facility] Comment on above: Performed By: #### C MP, A1C WTH eA, LDH, CBC, RETIC, MAURICIO, FE and TIBC, [id number] ####[place] [address] Sodium [Moles/Vol] 126 mmol/L Low 136-145 [facility] Comment on above: Performed By: #### C MP, A1C WTH eA, LDH, CBC, RETIC, MAURICIO, FE and TIBC, [id number] ####[place] [address] Urea nitrogen [Mass/Vol] 81 mg/dL High 7-25 [facility] Comment on above: Performed By: #### C MP, A1C WTH eA, LDH, CBC, RETIC, MAURICIO, FE and TIBC, [id number] ####[place] [address] Fecal occult blood detection by immunochemistryOrdered By: Carlton Mtz on 12-30-2022 Hemoglobin.gastrointest inal Ql (Stl) [facility] Ferritin [Mass/volume] in Se rum or PlasmaOrdered By: Carlton Mtz on 12-30-2022 Ferritin [Mass/Vol] 2214.0 ng/mL High 11.0-306.8 [facility] Comment on above: Performed By: #### C MP, A1C WTH eA, LDH, CBC, RETIC, MAURICIO, FE and TIBC, [id number] ####[address] Folate [Mass/volume] in Seru m or PlasmaOrdered By: Carlton Mtz on 12-30-2022 Folate [Mass/Vol] 14.8 ng/mL >5.9 [facility] Comment on above: Folate reference ran ge: >5.9 ng/mlThe WHO technical consultation on folate and vitamin [id number] has determined that folate concentrations lessthan 4 ng/ml are considered deficient. Glucose Poct Glucometerson 1 03-01-2022 Glucose [Mass/Vol] 373 mg/dL Normal [facility] Comment on above: Result Comment: [place] om Glucose Reference Range is dependent on time and content of last meal. Glucose of more than 200 mg/dL in a nonstressed, ambulatory subject supports the diagnosis of Diabetes Mellitus.PERFORMED BY:[place] [address] [place], [place] [phone] MEDICAL DIRECTORRAMEZ LARSON M.D. Performed By: #### G LULS ####Point of Care testing, Commemt1 Glu2: Cleaned Meter Normal [facility] Comment on above: Performed By: #### G LULS ####Point of Care testing, Commemt2 SLIDING SCALE COVERA Normal [facility] Comment on above: Result Comment: PERF ORMED BY:[place] [address] [place], [place] [phone] MEDICAL DIRECTORRAMEZ LARSON M.D. Performed By: #### G LULS ####Point of Care testing, Glucose [Mass/Vol] 183 mg/dL Normal [facility] Comment on above: Result Comment: [place] om Glucose Reference Range is dependent on time and content of last meal. Glucose of more than 200 mg/dL in a nonstressed, ambulatory subject supports the diagnosis of Diabetes Mellitus. Performed By: #### G LULS ####Point of Care testing, Glucose [Mass/Vol] 157 mg/dL Normal [facility] Comment on above: Result Comment: [place] om Glucose Reference Range is dependent on time and content of last meal. Glucose of more than 200 mg/dL in a nonstressed, ambulatory subject supports the diagnosis of Diabetes Mellitus.PERFORMED BY:[place] [address] [place], [place] [id number] MEDICAL MAJOR LARSON M.D. Performed By: #### G LULS ####Point of Care testing, Commemt1 Glu2: Cleaned Meter Normal [facility] Comment on above: Result Comment: PERF ORMED BY:[place] [address] [place], [place] [id number] MEDICAL DIRECTORRAMEZ LARSON M.D. Performed By: #### G MARYLS ####Point of Care testing, Glucose [Mass/Vol] 137 mg/dL Normal [facility] Comment on above: Result Comment: [place] Glucose Reference Range is dependent on time [...] from glycated hemoglobin (Bld) [Mass/Vol] 171 mg/dL [facility] [facility] A1c percentageOrd ered By: Carlton Mtz on 12-30-2022 HbA1c (Bld) [Mass fraction] 7.6 % High 4.3-5.6 [facility] Comment on above: Increased risk for d iabetes: 5.7 - 6.4diabetes: >6.4glycemic control for adults with diabetes: <7.0 Result Comment: Incr eased risk for diabetes: 5.7 - 6.4 diabetes: >6.4 glycemic control for adults with diabetes: <7.0 Performed By: #### C MP, A1C WTH eA, LDH, CBC, RETIC, MAURICIO, FE and TIBC, [id number] ####[facility] [id number] [place] [id number] [place] Iron [Mass/volume] in Serum or PlasmaOrdered By: Carlton Mtz on 12-30-2022 Iron [Mass/Vol] 27 ug/dL Low 50-212 [facility] Comment on above: Performed By: #### C MP, A1C WTH eA, LDH, CBC, RETIC, MAURICIO, FE and TIBC, [id number] ####[facility] [address] [id number] [facility] Iron and TIBC Profileon 12-12 0-2022 % Iron Saturation 19.4 % Low 20-50 [facility] Comment on above: Performed By: #### C MP, A1C WTH eA, LDH, CBC, RETIC, MAURICIO, FE and TIBC, [id number] ####[place] [address] Total Iron Binding Capacity 139 ug/dL Low 255-450 [facility] Comment on above: Performed By: #### C MP, A1C WTH eA, LDH, CBC, RETIC, MAURICIO, FE and TIBC, [id number] ####[address] Iron binding capacity [Mass/ volume] in Serum or PlasmaOrdered By: Carlton Mtz on 12-30-2022 Iron binding capacity [Mass/Vol] 139 ug/dL 255-450 [facility] Iron saturation [Mass Fracti on] in Serum or PlasmaOrdered By: Carlton Mtz on 12-30-2022 Iron saturation [Mass fraction] 19.4 % 20-50 [facility] LDH Lactate Dehydrogenaseon 12-30-2022 LDH Lactate Dehydrogenase 127 U/L Low 140-271 [facility] Comment on above: Performed By: #### C MP, A1C WTH eA, LDH, CBC, RETIC, MAURICIO, FE and TIBC, [id number] ####[address] Lactate dehydrogenase [Enzym atic activity/volume] in Serum or Plasma by Lactate to pyOrdered By: Carlton Mtz on 12-30-2022 LDH Lactate to pyruvate reaction [Catalytic activity/Vol] 127 U/L 140-271 [facility] No Panel InformationOrdered By: Tatiana Loya on 12-30-2022 Bedside Glucose #2 Comment Sliding scale covera [facility] Respiratory (Upper) Panel, P CRon 12-30-2022 Respiratory (Upper) Panel, PCR Normal [facility] Comment on above: Performed By: #### B IOFIRECOVNOTDE, RESP PANEL UPP. ####[address] Respiratory pathogens DNA an d RNA panel - Nasopharynx by MADISON with non-probe detectionOrdered By: Carlton Mtz on 12-30-2022 Respiratory pathogens DNA and RNA panel MADISON+non-probe (Nph) [facility] Reticulocyte Counton 023 Reticulocyte Number 0.052 10*6/uL Normal 0.024-0.084 T abimael [facility] Comment on above: Result Comment: PERF ORMED BY:[address] [place], [place] [phone] MEDICAL DIRECTORRAMEZ LARSON M.D. Performed By: #### C MP, A1C WTH eA, LDH, CBC, RETIC, MAURICIO, FE and TIBC, [id number] ####[address] [address] [facility] Reticulocyte Percent 1.7 % High 0.5-1.5 [facility] Comment on above: Performed By: #### C MP, A1C WTH eA, LDH, CBC, RETIC, MAURICIO, FE and TIBC, [id number] ####[place] [id number] [facility] Reticulocytes/100 RBC Auto ( Bld)Ordered By: Carlton Mtz on 12-30-2022 Reticulocytes/100 RBC (Bld) 1.7 % 0.5-1.5 [facility] Stool Occult Blood (Guaiac)o n 12-30-2022 Stool Occult Blood (Guaiac) Normal [facility] Comment on above: Performed By: #### O B(GUAIAC) ####[place] [id number] [facility] Transferrin [Mass/volume] in Serum or PlasmaOrdered By: Carlton Mtz on 12-30-2022 Transferrin [Mass/Vol] 99 mg/dL Low 203-362 [facility] Comment on above: Performed By: #### C MP, A1C WTH eA, LDH, CBC, RETIC, MAURICIO, FE and TIBC, [id number] ####[address] [address] [facility] Type and Screenon 12-30-2022 ABO and Rh group Nom (Bld) Blood group O Rh(D) positive Normal [facility] Comment on above: Result Comment: PERF ORMED BY:[address] [address] [place], [place] [phone] MEDICAL DIRECTORRAMEZ LARSON M.D. US liveron 12-30-2022 US liver Normal [facility] Vit. B12/Folate Profileon Folate 14.8 ng/mL Normal >5.9 [facility] Comment on above: Result Comment: [place] te reference range: >5.9 ng/ml The WHO technical consultation on folate and vitamin b12 deficiencies has determined that folate concentrations less than 4 ng/ml are considered deficient.PERFORMED BY:[address] [address] [place], [place] [phone] MEDICAL DIRECTORRAMEZ LARSON M.D. Performed By: #### C MP, A1C WTH eA, LDH, CBC, RETIC, MAURICIO, FE and TIBC, [id number] ####[place] [address] [place] [address] [facility] Vitamin B12 ser/plasOrdered By: Carlton Mzt on 12-30-2022 Cobalamin (Vitamin B12) [Mass/Vol] 559 pg/mL Normal 180-914 [facility] Comment on above: Performed By: #### C MP, A1C WTH eA, LDH, CBC, RETIC, MAURICIO, FE and TIBC, [id number] ####[address] [address] [facility] XR abdomen 1Von 12-30-2022 XR abdomen 1V Normal [facility] XR chest 1V portableon 12-30 XR chest 1V portable Normal [facility] Activated partial thrombopla stin time (aPTT) in platelet poor plasma by coagulation aOrdered By: Azar Palmer on 12-29-2022 aPTT Coag (PPP) [Time] 27.1 s 25.1-36.5 [facility] Comment on above: A hematocrit value g reater than 55% may lead to inaccurate results in coagulation testing. Patients having hematocrit values >55% require a special collection tube for coagulation studies. Please contact the laboratory at [phone] for redraw instructions. Alanine aminotransferase [En zymatic activity/volume] in Serum or PlasmaOrdered By: Azar Palmer on 12-29-2022 ALT [Catalytic activity/Vol] 26 U/L Normal 7-52 [facility] Comment on above: Performed By: #### P TT, CUBLD, CBC, LACTIC, BNP, PT, HS TROP, CMP ####[address] Albumin [Mass/volume] in Ser um or Plasma by Bromocresol green (BCG) dye binding methoOrdered By: Azar Palmer on 12-29-2022 Albumin BCG dye [Mass/Vol] 3.2 g/dL 3.5-5.7 [facility] Alkaline phosphatase [Enzyma tic activity/volume] in Serum or PlasmaOrdered By: Azar Palmer on 12-29-2022 ALP [Catalytic activity/Vol] 146 U/L High 34-104 [facility] Comment on above: Performed By: #### P TT, CUBLD, CBC, LACTIC, BNP, PT, HS TROP, CMP ####[address] Aspartate aminotransferase [ Enzymatic activity/volume] in Serum or PlasmaOrdered By: Azar Palmer on 12-29-2022 AST [Catalytic activity/Vol] 21 U/L Normal 13-39 [facility] Comment on above: Performed By: #### P TT, CUBLD, CBC, LACTIC, BNP, PT, HS TROP, CMP ####[place] [id number] [facility] Automated basophil %Ordered By: Azar Palmer on 12-29-2022 Basophils/100 WBC (Bld) 0.3 % Normal . [facility] Comment on above: Performed By: #### P TT, CUBLD, CBC, LACTIC, BNP, PT, HS TROP, CMP ####[place] [id number] [facility] Automated basophil countOrde red By: Azar Palmer on 12-29-2022 Basophils (Bld) [#/Vol] 0.0 10*3/uL Normal 0.0-0.2 [facility] Comment on above: Result Comment: PERF ORMED BY:[address] [place], [place] [phone] MEDICAL DIRECTORRAMEZ LARSON M.D. Performed By: #### P TT, CUBLD, CBC, LACTIC, BNP, PT, HS TROP, CMP ####[address] Automated blood monocyte cou ntOrdered By: Azar Palmer on 12-29-2022 Monocytes (Bld) [#/Vol] 1.3 10*3/uL High 0.0-0.8 [facility] Comment on above: Performed By: #### P TT, CUBLD, CBC, LACTIC, BNP, PT, HS TROP, CMP ####[address] Automated eosinophil %Ordere d By: Azar Palmer on 12-29-2022 Eosinophils/100 WBC (Bld) 1.0 % Normal . [facility] Comment on above: Performed By: #### P TT, CUBLD, CBC, LACTIC, BNP, PT, HS TROP, CMP ####[address] Automated eosinophil countOr dered By: Azar Palmer on 12-29-2022 Eosinophils (Bld) [#/Vol] 0.1 10*3/uL Normal 0.0-0.45 [facility] Comment on above: Performed By: #### P TT, CUBLD, CBC, LACTIC, BNP, PT, HS TROP, CMP ####[place] [id number] [facility] Automated monocyte %Ordered By: Azar Palmer on 12-29-2022 Monocytes/100 WBC (Bld) 13.9 % Normal . [facility] Comment on above: Performed By: #### P TT, CUBLD, CBC, LACTIC, BNP, PT, HS TROP, CMP ####[place] [id number] [facility] Automated neutrophil %Ordere d By: Azar Palmer on 12-29-2022 Neutrophils/100 WBC (Bld) 71.9 % Normal . [facility] Comment on above: Performed By: #### P TT, CUBLD, CBC, LACTIC, BNP, PT, HS TROP, CMP ####[address] [address] [facility] BNP ser/plasOrdered By: Lincoln Palmer on 12-29-2022 Natriuretic peptide B (Bld) [Mass/Vol] 1358.0 pg/mL High 5-100 [facility] Comment on above: Result Comment: PERF ORMED BY:[address] [place], [place] [phone] MEDICAL DIRECTORRAMEZ LARSON M.D. Performed By: #### P TT, CUBLD, CBC, LACTIC, BNP, PT, HS TROP, CMP ####[place] [id number] [facility] Bacterial blood cultureOrder ed By: Azar Palmer on 12-29-2022 Bacteria identified Cx Nom (Bld) NO GROWTH 5 DAYS [facility] Bacteria identified Cx Nom (Bld) NO GROWTH 5 DAYS [facility] Bilirubin.total [Mass/volume ] in Serum or PlasmaOrdered By: Azar Palmer on 12-29-2022 Bilirubin [Mass/Vol] 0.4 mg/dL Normal 0.3-1.0 [facility] Comment on above: Performed By: #### P TT, CUBLD, CBC, LACTIC, BNP, PT, HS TROP, CMP ####[place] [id number] [facility] Blood Cultureon 12-29-2022 Bacteria identified Cx Nom (Bld) NO GROWTH 5 DAYS PERFORMED BY: [facility] [address] [place] [id number] PATHOLOGIST MANAGER FUNCTIONAL RAMEZ LARSON M.D. Normal [facility] Comment on above: Performed By: #### P TT, CUBLD, CBC, LACTIC, BNP, PT, HS TROP, CMP ####[place] [id number] [facility] Bacteria identified Cx Nom (Bld) NO GROWTH 5 DAYS PERFORMED BY: [facility] [address] [place] [address] PATHOLOGIST MANAGER FUNCTIONAL RAMEZ LARSON M.D. Normal [facility] Comment on above: Performed By: #### P TT, CUBLD, CBC, LACTIC, BNP, PT, HS TROP, CMP ####[address] COVID CepheidOrdered By: Mango Palmer on 12-29-2022 SARS-CoV-2 (COVID-19) Ab IA Ql Negative Negative [facility] Comment on above: This is a duplicate Cepheid Xpert Xpress CoV-2/Flu/RSV Plus RNA by RT-PCR result to be used for statistical tracking purpose only. SARS-CoV-2 (COVID-19) RNA MADISON+probe Ql (Unsp spec) Normal [facility] Comment on above: Performed By: #### C OVID19 FLU RSV, CEPHEID NEG ####[address] Calcium [Mass/volume] in Ser um or PlasmaOrdered By: Azar Palmer on 12-29-2022 Calcium [Mass/Vol] 10.2 mg/dL Normal 8.6-10.3 [facility] Comment on above: Performed By: #### P TT, CUBLD, CBC, LACTIC, BNP, PT, HS TROP, CMP ####[address] Carbon dioxide, total [Moles /volume] in Serum or PlasmaOrdered By: Azar Palmer on 12-29-2022 CO2 [Moles/Vol] 25.8 mmol/L Normal 21.0-31.0 [facility] Comment on above: Performed By: #### P TT, CUBLD, CBC, LACTIC, BNP, PT, HS TROP, CMP ####[address] Cepheid COVID PCR Negativeon 12-29-2022 SARS-CoV-2 (COVID-19) RNA MADISON+probe Ql (Unsp spec) Negative Normal Negative [facility] Comment on above: Result Comment: This is a duplicate Cepheid Xpert Xpress CoV-2/Flu/RSV Plus RNA by RT-PCR result to be used for statistical tracking purpose only.PERFORMED BY:[address] [place], [place] [phone] MEDICAL DIRECTORRAMEZ LARSON M.D. Performed By: #### C OVID19 FLU RSV, CEPHEID NEG ####[address] [address] [facility] Chloride [Moles/volume] in S steffanie or PlasmaOrdered By: Azar Palmer on 12-29-2022 Chloride [Moles/Vol] 86 mmol/L Low 98-107 [facility] Comment on above: Performed By: #### P TT, CUBLD, CBC, LACTIC, BNP, PT, HS TROP, CMP ####[place] [id number] [facility] Complete Blood Count Auto Di ffon 12-29-2022 Mean Corpuscular HGB Conc 31.7 g/dL Low 32.0-35.0 [facility] Comment on above: Performed By: #### P TT, CUBLD, CBC, LACTIC, BNP, PT, HS TROP, CMP ####[place] [id number] [facility] Monocytes/100 WBC (Bld) 23.39 % High 0.00-20.00 [facility] Comment on above: Result Comment: For adults in ED, MDW > 20.0 may be associated with a higher risk of sepsis during the first 12 hrs of hospital admission Performed By: #### P TT, CUBLD, CBC, LACTIC, BNP, PT, HS TROP, CMP ####[place] [id number] [facility] NRBC% 0.0 /100{WBC} Normal 0-0.5 [facility] Comment on above: Performed By: #### P TT, CUBLD, CBC, LACTIC, BNP, PT, HS TROP, CMP ####[address] [address] [facility] Comprehensive Metabolic Pane eliseo 12-29-2022 Albumin [Mass/Vol] 3.2 g/dL Low 3.5-5.7 [facility] Comment on above: Performed By: #### P TT, CUBLD, CBC, LACTIC, BNP, PT, HS TROP, CMP ####[address] Creatinine Clr Calc Pharmacy 8.82 Normal [facility] Comment on above: Result Comment: PERF ORMED BY:[address] [place], [place] [phone] MEDICAL MAJOR LARSON M.D. Performed By: #### P TT, CUBLD, CBC, LACTIC, BNP, PT, HS TROP, CMP ####[address] GFR/1.73 sq M.predicted MDRD (S/P/Bld) [Vol rate/Area] 9.034 mL/min/{1.73_m2} Normal [facility] Comment on above: Performed By: #### P TT, CUBLD, CBC, LACTIC, BNP, PT, HS TROP, CMP ####[address] Creatinine [Mass/volume] in Serum or PlasmaOrdered By: Azar Palmer on 12-29-2022 Creatinine [Mass/Vol] 4.76 mg/dL High 0.60-1.20 [facility] Comment on above: Performed By: #### P TT, CUBLD, CBC, LACTIC, BNP, PT, HS TROP, CMP ####[address] ECG 12 lead ECGon 12-29-2022 ECG 12 lead ECG Normal [facility] Erythrocyte distribution wid th [Ratio] by Automated countOrdered By: Azar Palmer on 12-29-2022 Erythrocyte distribution width (RBC) [Ratio] 17.6 % High 11.9-15.3 [facility] Comment on above: Performed By: #### P TT, CUBLD, CBC, LACTIC, BNP, PT, HS TROP, CMP ####[address] Erythrocytes [#/volume] in B lood by Automated countOrdered By: Azar Palmer on 12-29-2022 RBC (Bld) [#/Vol] 3.10 10*6/uL Low 3.60-5.00 [facility] Comment on above: Performed By: #### P TT, CUBLD, CBC, LACTIC, BNP, PT, HS TROP, CMP ####[place] [address] [place] [id number] [facility] Glucose [Mass/volume] in Ser um or PlasmaOrdered By: Azar Palmer on 12-29-2022 Glucose [Mass/Vol] 144 mg/dL High 70-100 [facility] Comment on above: ADA recommended refe rence rangeRandom Glucose Reference Range is dependent on time and content of last meal. Glucose of more than 200 mg/dL in a nonstressed, ambulatory subject supports the diagnosis of Diabetes Mellitus. Result Comment: [place] om Glucose Reference Range is dependent on time and content of last meal. Glucose of more than 200 mg/dL in a nonstressed, ambulatory subject supports the diagnosis of Diabetes Mellitus. ADA recommended reference range Performed By: #### P TT, CUBLD, CBC, LACTIC, BNP, PT, HS TROP, CMP ####[place] [id number] [facility] Hematocrit [Volume Fraction] of Blood by Automated countOrdered By: Azar Palmer on 12-29-2022 Hematocrit (Bld) [Volume fraction] 27.8 % Low 34.0-46.4 [facility] Comment on above: Performed By: #### P TT, CUBLD, CBC, LACTIC, BNP, PT, HS TROP, CMP ####[place] [id number] [facility] Hemoglobin [Mass/volume] in BloodOrdered By: Azar Palmer on 12-29-2022 Hemoglobin (Bld) [Mass/Vol] 8.8 g/dL Low 11.8-15.4 [facility] Comment on above: Performed By: #### P TT, CUBLD, CBC, LACTIC, BNP, PT, HS TROP, CMP ####[place] [id number] [place] INR in Platelet poor plasma by Coagulation assayOrdered By: Azar Palmer on 12-29-2022 INR Coag (PPP) [Relative time] 1.0 {INR} Normal [facility] Comment on above: INR Therapeutic [...] - 4.5 Performed By: #### P TT, CUBLD, CBC, LACTIC, BNP, PT, HS TROP, CMP ####[facility] [place] [address] [facility] Lactate [Moles/volume] in Se rum or PlasmaOrdered By: Azar Palmer on 12-29-2022 Lactate [Moles/Vol] 1.0 mmol/L Normal 0.5-2.2 [facility] Comment on above: Result Comment: PERF ORMED BY:[address] [place], [place] [phone] MEDICAL DIRECTORRAMEZ LARSON M.D. Performed By: #### P TT, CUBLD, CBC, LACTIC, BNP, PT, HS TROP, CMP ####[place] [address] [place] [address] [facility] Leukocytes [#/volume] correc tr for nucleated erythrocytes in Blood by Automated counOrdered By: Azar Palmer on 12-29-2022 WBC corrected for nucl RBC Auto (Bld) [#/Vol] 9.6 10*3/uL 3.8-11.6 [facility] Leukocytes [#/volume] in Blo od by Automated countOrdered By: Azar Palmer on 12-29-2022 WBC (Bld) [#/Vol] 9.6 10*3/uL Normal 3.8-11.6 [facility] Comment on above: Performed By: #### P TT, CUBLD, CBC, LACTIC, BNP, PT, HS TROP, CMP ####[address] Lymphocytes [#/volume] in Bl ood by Automated countOrdered By: Azar Palmer on 12-29-2022 Lymphocytes (Bld) [#/Vol] 1.2 10*3/uL Normal 1.00-4.8 [facility] Comment on above: Performed By: #### P TT, CUBLD, CBC, LACTIC, BNP, PT, HS TROP, CMP ####[address] Lymphocytes/100 leukocytes i n Blood by Automated countOrdered By: Azar Palmer on 12-29-2022 Lymphocytes/100 WBC (Bld) 12.9 % Normal . [facility] Comment on above: Performed By: #### P TT, CUBLD, CBC, LACTIC, BNP, PT, HS TROP, CMP ####[address] MCH [Entitic mass] by Automa tr countOrdered By: Azar Palmer on 12-29-2022 MCH (RBC) [Entitic mass] 28.4 pg Normal 24.7-34.3 [facility] Comment on above: Performed By: #### P TT, CUBLD, CBC, LACTIC, BNP, PT, HS TROP, CMP ####[address] MCHC Auto (RBC) [Mass/Vol]Or dered By: Azar Palmer on 12-29-2022 MCHC (RBC) [Mass/Vol] 31.7 g/dL 32.0-35.0 [facility] MCV [Entitic volume] by Auto mated countOrdered By: Azar Palmer on 12-29-2022 MCV (RBC) [Entitic vol] 89.6 fL Normal 80-[address] [facility] Comment on above: Performed By: #### P TT, CUBLD, CBC, LACTIC, BNP, PT, HS TROP, CMP ####[facility] [address] [place] [address] [facility] Monocyte distribution width [Entitic volume] in Blood by AutomatedOrdered By: Azar Palmer on 12-29-2022 Monocyte distribution width Auto (Bld) [Entitic vol] 23.39 % 0.00-20.00 [facility] Comment on above: For adults in ED, MD W > 20.0 may be associated with a higher risk of sepsis during the first 12 hrs of hospital admission Neutrophils [#/volume] in Bl ood by Automated countOrdered By: Azar Palmer on 12-29-2022 Neutrophils (Bld) [#/Vol] 6.9 10*3/uL Normal 1.8-7.7 [facility] Comment on above: Performed By: #### P TT, CUBLD, CBC, LACTIC, BNP, PT, HS TROP, CMP ####[facility] [id number] [place] [id number] [facility] No Panel InformationOrdered By: Azar Palmer on 12-29-2022 Estimated GFR (CKD-EPI) 9.034 mL/Min [facility] Creatinine Clearance (Chem 8.82 [facility] Nucleated erythrocytes [Pres ence] in Blood by Automated countOrdered By: Azar Palmer on 12-29-2022 Nucleated RBC Auto Ql (Bld) 0.0 /100{WBC} 0-0.5 [facility] Partial Thromboplastin Timeo n 12-29-2022 aPTT Coag (Bld) [Time] 27.1 s Normal 25.1-36.5 Th e [facility] Comment on above: Result Comment: A he matocrit value greater than 55% may lead to inaccurate results in coagulation testing. Patients having hematocrit values >55% require a special collection tube for coagulation studies. Please contact the laboratory at [phone] for redraw instructions.PERFORMED BY:[address] [place], [place] [phone] MEDICAL DIRECTORRAMEZ LARSON M.D. Performed By: #### P TT, CUBLD, CBC, LACTIC, BNP, PT, HS TROP, CMP ####[place] [id number] [facility] Platelet mean volume [Entiti c volume] in Blood by Automated countOrdered By: Azar Palmer on 12-29-2022 Platelet mean volume (Bld) [Entitic vol] 7.2 fL Normal 6.3-10.7 [facility] Comment on above: Performed By: #### P TT, CUBLD, CBC, LACTIC, BNP, PT, HS TROP, CMP ####[place] [id number] [facility] Platelets [#/volume] in Bloo d by Automated countOrdered By: Azar Palmer on 12-29-2022 Platelets (Bld) [#/Vol] 397 10*3/uL Normal 150-450 [facility] Comment on above: Performed By: #### P TT, CUBLD, CBC, LACTIC, BNP, PT, HS TROP, CMP ####[place] [id number] [facility] Potassium [Moles/volume] in Serum or PlasmaOrdered By: Azar Palmer on 12-29-2022 Potassium [Moles/Vol] 4.2 mmol/L Normal 3.5-5.1 [facility] Comment on above: Performed By: #### P TT, CUBLD, CBC, LACTIC, BNP, PT, HS TROP, CMP ####[place] [id number] [facility] Protein [Mass/volume] in Ser um or PlasmaOrdered By: Azar Palmer on 12-29-2022 Protein [Mass/Vol] 6.9 g/dL Normal 6.4-8.9 [facility] Comment on above: Performed By: #### P TT, CUBLD, CBC, LACTIC, BNP, PT, HS TROP, CMP ####[place] [id number] [facility] Prothrombin time (PT)Ordered By: Azar Palmer on 12-29-2022 PT Coag (PPP) [Time] 12.2 s Normal 9.0-12.9 [facility] Comment on above: A hematocrit value g reater than 55% may lead to inaccurate results in coagulation testing. Patients having hematocrit values >55% require a special collection tube for coagulation studies. Please contact the laboratory at [phone] for redraw instructions. Result Comment: A he matocrit value greater than 55% may lead to inaccurate results in coagulation testing. Patients having hematocrit values >55% require a special collection tube for coagulation studies. Please contact the laboratory at [phone] for redraw instructions. Performed By: #### P TT, CUBLD, CBC, LACTIC, BNP, PT, HS TROP, CMP ####[address] Serum globulin measurement b y calculation (mass/volume)Ordered By: Azar Palmer on 12-29-2022 Globulin (S) [Mass/Vol] 3.7 g/dL Normal [facility] Comment on above: Performed By: #### P TT, CUBLD, CBC, LACTIC, BNP, PT, HS TROP, CMP ####[address] Serum or plasma albumin/glob ulin mass ratioOrdered By: Azar Palmer on 12-29-2022 Albumin/Globulin [Mass ratio] 0.9 {ratio} Normal [facility] Comment on above: Performed By: #### P TT, CUBLD, CBC, LACTIC, BNP, PT, HS TROP, CMP ####[address] Serum or plasma anion gap de terminationOrdered By: Azar Palmer on 12-29-2022 Anion gap [Moles/Vol] 18.4 mmol/L High 6.0-15.0 [facility] [facility] Comment on above: Performed By: #### P TT, CUBLD, CBC, LACTIC, BNP, PT, HS TROP, CMP ####[address] Sodium [Moles/volume] in Ser um or PlasmaOrdered By: Azar Palmer on 12-29-2022 Sodium [Moles/Vol] 126 mmol/L Low 136-145 [facility] Comment on above: Performed By: #### P TT, CUBLD, CBC, LACTIC, BNP, PT, HS TROP, CMP ####[facility] [address] [place] [address] [facility] Troponin I High Sensitivityo n 12-29-2022 Troponin I High Sensitivity 24.0 pg/mL High 0.0-15.0 [facility] Comment on above: Result Comment: PERF ORMED BY:[address] [place], [place] [phone] MEDICAL DIRECTORRAMEZ LARSON M.D. Performed By: #### P TT, CUBLD, CBC, LACTIC, BNP, PT, HS TROP, CMP ####[facility] [place] [address] [facility] Troponin I.cardiac [Mass/vol ume] in Serum or Plasma by Detection limit <= 0.01 ng/Ordered By: Azar Palmer on 12-29-2022 Troponin I.cardiac DL <= 0.01 ng/mL [Mass/Vol] 24.0 pg/mL 0.0-15.0 [facility] Urea nitrogen [Mass/volume] in Serum or PlasmaOrdered By: Azar Palmer on 12-29-2022 Urea nitrogen [Mass/Vol] 76 mg/dL High 7-25 [facility] Comment on above: Performed By: #### P TT, CUBLD, CBC, LACTIC, BNP, PT, HS TROP, CMP ####[facility] [place] [address] [facility] Office Visiton 12-26-2022 Follow-up visit [id number] Wilbert Wilson 1945 F Date Provider Department Center 12/26/2022 [facility], [place] [facility] No family history on file Level of Service:49037 [place] OFFICE/OUTPATIENT ESTABLISHED MOD MDM 30-39 MIN Normal [facility] US PVR Lower EXT Complete Bi [...] and moderately abnormal at.. Ordering Provider: Stephan Loyd FINAL REPORT Dictated: 12/25/2022 4:36 pm Armando Turpin M.D. Signed (Electronic Signature): 12/25/2022 4:36 pm Signed by: Armando Turpin M.D. Transcribed by: YENIFER Technologist: HW [facility] Consent for Treatmenton 12-11 Consent for Treatment [id number] F [facility] Physician Orderon 12-19-2022 Physician Order [id number] F [facility] Capillary blood glucose eugenie urement by glucometer (mass/volume)Ordered By: Annette Tenorio on 12-16-2022 Glucose [Mass/Vol] 231 mg/dL [facility] Comment on above: Random Glucose Refer ence Range is dependent on time and content of last meal. Glucose of more than 200 mg/dL in a nonstressed, ambulatory subject supports the diagnosis of Diabetes Mellitus. Result Comment: [place] Glucose Reference Range is dependent on time and content of last meal. Glucose of more than 200 mg/dL in a nonstressed, ambulatory subject supports the diagnosis of Diabetes Mellitus.PERFORMED BY:[address] [place], [place] [phone] MEDICAL DIRECTORRAMEZ LARSON M.D. Performed By: #### G LULS ####Point of Care testing, Glucose Poct Glucometerson 1 02-15-2022 Glucose [Mass/Vol] 138 mg/dL Normal [facility] Comment on above: Result Comment: [facility] Glucose Reference Range is dependent on time and content of last meal. Glucose of more than 200 mg/dL in a nonstressed, ambulatory subject supports the diagnosis of Diabetes Mellitus.PERFORMED BY:[address] [place], [place] [phone] MEDICAL MAJOR LARSON M.D. Performed By: #### G LULS ####Point of Care testing, Glucose [Mass/Vol] 208 mg/dL Normal [facility] Comment on above: Result Comment: [facility] Glucose Reference Range is dependent on time and content of last meal. Glucose of more than 200 mg/dL in a nonstressed, ambulatory subject supports the diagnosis of Diabetes Mellitus.PERFORMED BY:[address] [place], [place] [phone] MEDICAL DIRECTORRAMEZ LARSON M.D. Performed By: #### G LULS ####Point of Care testing, Automated basophil %Ordered By: Erica Armenta on 12-15-2022 Basophils/100 WBC (Bld) 0.3 % Normal . [facility] Comment on above: Performed By: #### C BC, BMP, MG ####[address] [address] [facility] Automated basophil countOrde red By: Erica Armenta on 12-15-2022 Basophils (Bld) [#/Vol] 0.0 10*3/uL Normal 0.0-0.2 [facility] Comment on above: Result Comment: PERF ORMED BY:[address] [place], [place] [phone] MEDICAL DIRECTORRAMEZ LARSON M.D. Performed By: #### C BC, BMP, MG ####[address] Automated blood monocyte cou ntOrdered By: Erica Armenta on 12-15-2022 Monocytes (Bld) [#/Vol] 0.9 10*3/uL High 0.0-0.8 [facility] Comment on above: Performed By: #### C BC, BMP, MG ####[address] Automated eosinophil %Ordere d By: Erica Armenta on 12-15-2022 Eosinophils/100 WBC (Bld) 1.5 % Normal . [facility] Comment on above: Performed By: #### C BC, BMP, MG ####[address] Automated eosinophil countOr dered By: Erica Armenta on 12-15-2022 Eosinophils (Bld) [#/Vol] 0.2 10*3/uL Normal 0.0-0.45 [facility] Comment on above: Performed By: #### C BC, BMP, MG ####[address] Automated monocyte %Ordered By: Erica Armenta on 12-15-2022 Monocytes/100 WBC (Bld) 8.5 % Normal . [facility] Comment on above: Performed By: #### C BC, BMP, MG ####[address] Automated neutrophil %Ordere d By: Isawadaniela Mcnamarar on 12-15-2022 Neutrophils/100 WBC (Bld) 79.3 % Normal . [facility] Comment on above: Performed By: #### C BC, BMP, MG ####[address] [address] [facility] Basic Metabolic Panelon 110 Creatinine Clr Calc Pharmacy 9.14 Normal [facility] Comment on above: Result Comment: PERF ORMED BY:[place] [address] [place], [place] [phone] MEDICAL DIRECTORRAMEZ LARSON M.D. Performed By: #### C BC, BMP, MG ####[address] [address] [facility] GFR/1.73 sq M.predicted MDRD (S/P/Bld) [Vol rate/Area] 9.437 mL/min/{1.73_m2} Normal [facility] Comment on above: Performed By: #### C BC, BMP, MG ####[place] [id number] [facility] Calcium [Mass/volume] in Ser um or PlasmaOrdered By: Erica Armenta on 12-15-2022 Calcium [Mass/Vol] 8.9 mg/dL Normal 8.6-10.3 [facility] Comment on above: Performed By: #### C BC, BMP, MG ####[place] [id number] [facility] Carbon dioxide, total [Moles /volume] in Serum or PlasmaOrdered By: Erica Armenta on 12-15-2022 CO2 [Moles/Vol] 24.1 mmol/L Normal 21.0-31.0 [facility] Comment on above: Performed By: #### C BC, BMP, MG ####[place] [id number] [place] Chloride [Moles/volume] in S steffanie or PlasmaOrdered By: Erica Armenta on 12-15-2022 Chloride [Moles/Vol] 91 mmol/L Low 98-107 [facility] Comment on above: Performed By: #### C BC, BMP, MG ####[place] [id number] [facility] Complete Blood Count Auto Di ffon 12-15-2022 Mean Corpuscular HGB Conc 31.4 g/dL Low 32.0-35.0 [facility] Comment on above: Performed By: #### C BC, BMP, MG ####[place] [id number] [facility] NRBC% 0.0 /100{WBC} Normal 0-0.5 [facility] Comment on above: Performed By: #### C BC, BMP, MG ####[place] [id number] [facility] Creatinine [Mass/volume] in Serum or PlasmaOrdered By: Erica Armenta on 12-15-2022 Creatinine [Mass/Vol] 4.59 mg/dL Significan t change up 0.60-1.20 [facility] Comment on above: Delta: 3.37 on 12/14 Performed By: #### C BC, BMP, MG ####[address] Erythrocyte distribution wid th [Ratio] by Automated countOrdered By: Erica Armenta on 12-15-2022 Erythrocyte distribution width (RBC) [Ratio] 17.6 % High 11.9-15.3 [facility] Comment on above: Performed By: #### C BC, BMP, MG ####[place] [id number] [facility] Erythrocytes [#/volume] in B lood by Automated countOrdered By: Erica Armenta on 12-15-2022 RBC (Bld) [#/Vol] 3.63 10*6/uL Normal 3.60-5.00 [facility] Comment on above: Performed By: #### C BC, BMP, MG ####[place] [id number] [facility] Glucose Poct Glucometerson 1 02-14-2022 Commemt1 Glu2: Cleaned Meter Normal [facility] Comment on above: Result Comment: PERF ORMED BY:[address] [place], [place] [phone] MEDICAL DIRECTORRAMEZ LARSON M.D. Performed By: #### G LULS ####Point of Care testing, Glucose [Mass/Vol] 189 mg/dL Normal [facility] Comment on above: Result Comment: [place] om Glucose Reference Range is dependent on time and content of last meal. Glucose of more than 200 mg/dL in a nonstressed, ambulatory subject supports the diagnosis of Diabetes Mellitus. Performed By: #### G LULS ####Point of Care testing, Glucose [Mass/Vol] 172 mg/dL Normal [facility] Comment on above: Result Comment: [place] om Glucose Reference Range is dependent on time and content of last meal. Glucose of more than 200 mg/dL in a nonstressed, ambulatory subject supports the diagnosis of Diabetes Mellitus.PERFORMED BY:[address] [place], [place] [phone] MEDICAL DIRECTORRAMEZ LARSON M.D. Performed By: #### G LULS ####Point of Care testing, Commemt1 Glu2: Cleaned Meter Normal [facility] Comment on above: Result Comment: PERF ORMED BY:[address] [place], [place] [phone] MEDICAL MAJOR LARSON M.D. Performed By: #### G LULS ####Point of Care testing, Glucose [Mass/Vol] 168 mg/dL Normal [facility] Comment on above: Result Comment: [place] om Glucose Reference Range is dependent on time and content of last meal. Glucose of more than 200 mg/dL in a nonstressed, ambulatory subject supports the diagnosis of Diabetes Mellitus. Performed By: #### G LULS ####Point of Care testing, Commemt1 Glu2: Cleaned Meter Normal [facility] Comment on above: Result Comment: PERF ORMED BY:[address] [place], [place] [phone] MEDICAL MAJOR LARSON M.D. Performed By: #### G LULS ####Point of Care testing, Glucose [Mass/Vol] 150 mg/dL Normal [facility] Comment on above: Result Comment: [place] Glucose Reference Range is dependent on time and content of last meal. Glucose of more than 200 mg/dL in a nonstressed, ambulatory subject supports the diagnosis of Diabetes Mellitus. Performed By: #### G DAVID ####Point of Care testing, Glucose [Mass/volume] in Ser um or PlasmaOrdered By: Erica Armenta on 12-15-2022 Glucose [Mass/Vol] 181 mg/dL Significant change up 70-100 [facility] Comment on above: Delta: 317 on -[id number] recommended reference rangeRandom Glucose Reference Range is dependent on time and content of last meal. Glucose of more than 200 mg/dL in a nonstressed, ambulatory subject supports the diagnosis of Diabetes Mellitus. Result Comment: [facility] Glucose Reference Range is dependent on time and content of last meal. Glucose of more than 200 mg/dL in a nonstressed, ambulatory subject supports the diagnosis of Diabetes Mellitus. ADA recommended reference range Performed By: #### C CHELSI FERNANDEZ, MG ####[facility] Hematocrit [Volume Fraction] of Blood by Automated countOrdered By: Erica Armenta on 12-15-2022 Hematocrit (Bld) [Volume fraction] 33.1 % Low 34.0-46.4 [facility] Comment on above: Performed By: #### C CHELSI FERNANDEZ, MG ####[facility] [place] [id number] [facility] Hemoglobin [Mass/volume] in BloodOrdered By: Erica Armenta on 12-15-2022 Hemoglobin (Bld) [Mass/Vol] 10.4 g/dL Low 11.8-15.4 [facility] Comment on above: Performed By: #### C CHELSI FERNANDEZ, MG ####[facility] [place], [place] [id number] [facility] Leukocytes [#/volume] correc tr for nucleated erythrocytes in Blood by Automated counOrdered By: Erica Armenta on 12-15-2022 WBC corrected for nucl RBC Auto (Bld) [#/Vol] 10.7 10*3/uL 3.8-11.6 [facility] Leukocytes [#/volume] in Blo od by Automated countOrdered By: Erica Armenta on 12-15-2022 WBC (Bld) [#/Vol] 10.7 10*3/uL Normal 3.8-11.6 [facility] Comment on above: Performed By: #### C REBECCA, BMP, MG ####[place] [address] [place] [address] [facility] Lymphocytes [#/volume] in Bl ood by Automated countOrdered By: Erica Armenta on 12-15-2022 Lymphocytes (Bld) [#/Vol] 1.1 10*3/uL Normal 1.00-4.8 [facility] Comment on above: Performed By: #### C REBECCA, CHELSI, MG ####[address] [address] [facility] Lymphocytes/100 leukocytes i n Blood by Automated countOrdered By: Erica Armenta on 12-15-2022 Lymphocytes/100 WBC (Bld) 10.4 % Normal . [facility] Comment on above: Performed By: #### C REBECCA, BMP, MG ####[place] [id number] [facility] MCH [Entitic mass] by Automa tr countOrdered By: Erica Armenta on 12-15-2022 MCH (RBC) [Entitic mass] 28.7 pg Normal 24.7-34.3 [facility] Comment on above: Performed By: #### C REBECCA, BMP, MG ####[place] [id number] [facility] MCHC Auto (RBC) [Mass/Vol]Or dered By: Erica Armenta on 12-15-2022 MCHC (RBC) [Mass/Vol] 31.4 g/dL 32.0-35.0 [facility] MCV [Entitic volume] by Auto mated countOrdered By: Erica Armenta on 12-15-2022 MCV (RBC) [Entitic vol] 91.4 fL Normal 80-[address] [facility] Comment on above: Performed By: #### C BC, BMP, MG ####[place] [address] Magnesium [Mass/volume] in S steffanie or PlasmaOrdered By: Erica Armenta on 12-15-2022 Magnesium [Mass/Vol] 1.8 mg/dL Low 1.9-2.7 [facility] Comment on above: Result Comment: PERF ORMED BY:[address] [place], [place] [phone] MEDICAL DIRECTORRAMEZ LARSON M.D. Performed By: #### C BC, BMP, MG ####[place] [address] Neutrophils [#/volume] in Bl ood by Automated countOrdered By: Erica Armenta on 12-15-2022 Neutrophils (Bld) [#/Vol] 8.5 10*3/uL High 1.8-7.7 [facility] Comment on above: Performed By: #### C BC, BMP, MG ####[address] No Panel InformationOrdered By: Erica Armenta on 12-15-2022 Bedside Glucose Comment Glu2: cleaned meter [facility] Estimated GFR (CKD-EPI) 9.437 mL/Min [facility] Pharmacy Creatinine Clearance (Chem 9.14 [facility] Nucleated erythrocytes [Pres ence] in Blood by Automated countOrdered By: Erica Armenta on 12-15-2022 Nucleated RBC Auto Ql (Bld) 0.0 /100{WBC} 0-0.5 [facility] Platelet mean volume [Entiti c volume] in Blood by Automated countOrdered By: Erica Armenta on 12-15-2022 Platelet mean volume (Bld) [Entitic vol] 7.5 fL Normal 6.3-10.7 [facility] Comment on above: Performed By: #### C BC, BMP, MG ####[address] Platelets [#/volume] in Bloo d by Automated countOrdered By: Erica Armenta on 12-15-2022 Platelets (Bld) [#/Vol] 305 10*3/uL Normal 150-450 [facility] Comment on above: Performed By: #### C CHELSI FERNANDEZ, MG ####[place] [address] [place] [address] [facility] Potassium [Moles/volume] in Serum or PlasmaOrdered By: Erica Armenta on 12-15-2022 Potassium [Moles/Vol] 4.4 mmol/L Normal 3.5-5.1 [facility] Comment on above: Performed By: #### C CHELSI FERNANDEZ, MG ####[place] [address] [place] [id number] [facility] Serum or plasma anion gap de terminationOrdered By: Erica Armenta on 12-15-2022 Anion gap [Moles/Vol] 18.3 mmol/L High 6.0-15.0 [facility] Comment on above: Performed By: #### C REBECCA BMP, MG ####[place] [id number] [facility] Sodium [Moles/volume] in Ser um or PlasmaOrdered By: Erica Armenta on 12-15-2022 Sodium [Moles/Vol] 129 mmol/L Low 136-145 [facility] Comment on above: Performed By: #### C REBECCA BMP, MG ####[place] [address] [place] [id number] [facility] Urea nitrogen [Mass/volume] in Serum or PlasmaOrdered By: Erica Armenta on 12-15-2022 Urea nitrogen [Mass/Vol] 70 mg/dL High 7-25 [facility] Comment on above: Performed By: #### C REBECCA BMP, MG ####[place] [address] [place] [address] [facility] Basic Metabolic Panelon Anion gap [Moles/Vol] 17.5 mmol/L High 6.0-15.0 [facility] Comment on above: Performed By: #### B MP, CBC, HS TROP ####[address] [address] [facility] Calcium [Mass/Vol] 9.1 mg/dL Normal 8.6-10.3 [facility] Comment on above: Performed By: #### B MP, CBC, HS TROP ####[place] [address] [place] [address] [place] Chloride [Moles/Vol] 90 mmol/L Low 98-107 [facility] Comment on above: Performed By: #### B MP, CBC, HS TROP ####[address] [address] [facility] CO2 [Moles/Vol] 25.1 mmol/L Normal 21.0-31.0 [facility] Comment on above: Performed By: #### B MP, CBC, HS TROP ####[address] [address] [facility] Creatinine [Mass/Vol] 3.37 mg/dL High 0.60-1.20 [facility] Comment on above: Performed By: #### B MP, CBC, HS TROP ####[place] [id number] [place] Creatinine Clr Calc Pharmacy 12.46 Normal [facility] Comment on above: Result Comment: PERF ORMED BY:[address] [place], [place] [phone] MEDICAL DIRECTORRAMEZ LARSON M.D. Performed By: #### B MP, CBC, HS TROP ####[address] [address] [place] GFR/1.73 sq M.predicted MDRD (S/P/Bld) [Vol rate/Area] 13.673 mL/min/{1.73_m2} Normal [facility] Comment on above: Performed By: #### B MP, CBC, HS TROP ####[address] [address] [facility] Glucose [Mass/Vol] 317 mg/dL High 70-100 [facility] Comment on above: Result Comment: [facility] Glucose Reference Range is dependent on time and content of last meal. Glucose of more than 200 mg/dL in a nonstressed, ambulatory subject supports the diagnosis of Diabetes Mellitus. ADA recommended reference range Performed By: #### B MP, CBC, HS TROP ####[place] [address] [place] [id number] [facility] Potassium [Moles/Vol] 4.6 mmol/L Normal 3.5-5.1 [facility] Comment on above: Performed By: #### B MP, CBC, HS TROP ####[place] [address] [place] [id number] [facility] Sodium [Moles/Vol] 128 mmol/L Low 136-145 [facility] Comment on above: Performed By: #### B MP, CBC, HS TROP ####[place] [id number] [facility] Urea nitrogen [Mass/Vol] 51 mg/dL High 7-25 [facility] Comment on above: Performed By: #### B MP, CBC, HS TROP ####[place] [address] [place] [id number] [facility] Complete Blood Count Auto Di ffon 12-14-2022 Basophils (Bld) [#/Vol] 0.0 10*3/uL Normal 0.0-0.2 [facility] Comment on above: Result Comment: PERF ORMED BY:[address] [place], [place] [phone] MEDICAL DIRECTORRAMEZ LARSON M.D. Performed By: #### B MP, CBC, HS TROP ####[place] [id number] [facility] Basophils/100 WBC (Bld) 0.3 % Normal . [facility] Comment on above: Performed By: #### B MP, CBC, HS TROP ####[place] [id number] [facility] Eosinophils (Bld) [#/Vol] 0.0 10*3/uL Normal 0.0-0.45 [facility] Comment on above: Performed By: #### B MP, CBC, HS TROP ####[address] Eosinophils/100 WBC (Bld) 0.0 % Normal . [facility] Comment on above: Performed By: #### B MP, CBC, HS TROP ####[address] Erythrocyte distribution width (RBC) [Ratio] 17.9 % High 11.9-15.3 [facility] Comment on above: Performed By: #### B MP, CBC, HS TROP ####[address] Hematocrit (Bld) [Volume fraction] 32.1 % Low 34.0-46.4 [facility] Comment on above: Performed By: #### B MP, CBC, HS TROP ####[address] Hemoglobin (Bld) [Mass/Vol] 10.2 g/dL Low 11.8-15.4 [facility] Comment on above: Performed By: #### B MP, CBC, HS TROP ####[address] Lymphocytes (Bld) [#/Vol] 1.0 10*3/uL Normal 1.00-4.8 [facility] Comment on above: Performed By: #### B MP, CBC, HS TROP ####[address] Lymphocytes/100 WBC (Bld) 8.7 % Normal . [facility] Comment on above: Performed By: #### B MP, CBC, HS TROP ####[address] MCH (RBC) [Entitic mass] 29.0 pg Normal 24.7-34.3 [facility] Comment on above: Performed By: #### B MP, CBC, HS TROP ####[address] MCV (RBC) [Entitic vol] 91.5 fL Normal 80-100 [facility] Comment on above: Performed By: #### B MP, CBC, HS TROP ####[address] Mean Corpuscular HGB Conc 31.7 g/dL Low 32.0-35.0 [facility] Comment on above: Performed By: #### B MP, CBC, HS TROP ####[address] Monocytes (Bld) [#/Vol] 0.6 10*3/uL Normal 0.0-0.8 [facility] Comment on above: Performed By: #### B MP, CBC, HS TROP ####[address] Monocytes/100 WBC (Bld) 5.3 % Normal . [facility] Comment on above: Performed By: #### B MP, CBC, HS TROP ####[address] Neutrophils (Bld) [#/Vol] 9.4 10*3/uL High 1.8-7.7 [facility] Comment on above: Performed By: #### B MP, CBC, HS TROP ####[address] Neutrophils/100 WBC (Bld) 85.7 % Normal . [facility] Comment on above: Performed By: #### B MP, CBC, HS TROP ####[address] NRBC% 0.0 /100{WBC} Normal 0-0.5 [facility] Comment on above: Performed By: #### B MP, CBC, HS TROP ####[address] Platelet mean volume (Bld) [Entitic vol] 7.8 fL Normal 6.3-10.7 [facility] Comment on above: Performed By: #### B MP, CBC, HS TROP ####[address] [place] [address] [facility] Platelets (Bld) [#/Vol] 321 10*3/uL Normal 150-450 [facility] Comment on above: Performed By: #### B MP, CBC, HS TROP ####[place] [id number] [facility] RBC (Bld) [#/Vol] 3.51 10*6/uL Low 3.60-5.00 [facility] Comment on above: Performed By: #### B MP, CBC, HS TROP ####[place] [id number] [facility] WBC (Bld) [#/Vol] 10.9 10*3/uL Normal 3.8-11.6 [facility] Comment on above: Performed By: #### B MP, CBC, HS TROP ####[place] [id number] [facility] ECH echo transthoracicon ECH echo transthoracic Normal Th e [facility] Glucose Poct Glucometerson 1 02-13-2022 Commemt1 Glu2: Cleaned Meter Normal [facility] Comment on above: Result Comment: PERF ORMED BY:[place] [address] [place] [phone] MEDICAL DIRECTORRAMEZ LARSON M.D. Performed By: #### G LULS ####Point of Care testing, Glucose [Mass/Vol] 225 mg/dL Normal [facility] Comment on above: Result Comment: [facility] Glucose Reference Range is dependent on time and content of last meal. Glucose of more than 200 mg/dL in a nonstressed, ambulatory subject supports the diagnosis of Diabetes Mellitus. Performed By: #### G LULS ####Point of Care testing, Glucose [Mass/Vol] 222 mg/dL Normal [facility] Comment on above: Result Comment: [place] Glucose Reference Range is dependent on time and content of last meal. Glucose of more than 200 mg/dL in a nonstressed, ambulatory subject supports the diagnosis of Diabetes Mellitus.PERFORMED BY:[place] [address] [place], [place] [phone] MEDICAL DIRECTORRAMEZ LARSON M.D. Performed By: #### G LULS ####Point of Care testing, Commemt1 Glu2: Cleaned Meter Normal [facility] Comment on above: Result Comment: PERF ORMED BY:[address] [place], [place] [phone] MEDICAL DIRECTORRAMEZ LARSON M.D. Performed By: #### G LULS ####Point of Care testing, Glucose [Mass/Vol] 233 mg/dL Normal [facility] Comment on above: Result Comment: [place] om Glucose Reference Range is dependent on time and content of last meal. Glucose of more than 200 mg/dL in a nonstressed, ambulatory subject supports the diagnosis of Diabetes Mellitus. Performed By: #### G LULS ####Point of Care testing, Commemt1 Glu2: Cleaned Meter Normal [facility] Comment on above: Result Comment: PERF ORMED BY:[address] [place], [place] [phone] MEDICAL DIRECTORRAMEZ LARSON M.D. Performed By: #### G LULS ####Point of Care testing, Glucose [Mass/Vol] 249 mg/dL Normal [facility] Comment on above: Result Comment: [place] om Glucose Reference Range is dependent on time and content of last meal. Glucose of more than 200 mg/dL in a nonstressed, ambulatory subject supports the diagnosis of Diabetes Mellitus. Performed By: #### G LULS ####Point of Care testing, Troponin I High Sensitivityo n 12-14-2022 Troponin I High Sensitivity 48.8 pg/mL High 0.0-15.0 [facility] Comment on above: Result Comment: PERF ORMED BY:[address] [place], [place] [phone] MEDICAL MAJOR LARSON M.D. Performed By: #### B MP, CBC, HS TROP ####[address] [address] [facility] Troponin I.cardiac [Mass/vol ume] in Serum or Plasma by Detection limit <= 0.01 ng/Ordered By: Jamal Schaefer on 12-14-2022 Troponin I.cardiac DL <= 0.01 ng/mL [Mass/Vol] 48.8 pg/mL 0.0-15.0 [facility] Basic Metabolic Panelon 11 Anion gap [Moles/Vol] 23.7 mmol/L High 6.0-15.0 [facility] Comment on above: Performed By: #### H S TROP, BMP, CBC ####[address] Calcium [Mass/Vol] 8.6 mg/dL Normal 8.6-10.3 [facility] Comment on above: Performed By: #### H S TROP, BMP, CBC ####[address] [address] [facility] Chloride [Moles/Vol] 89 mmol/L Low 98-107 [facility] Comment on above: Performed By: #### H S TROP, BMP, CBC ####[place] [id number] [facility] CO2 [Moles/Vol] 21.1 mmol/L Normal 21.0-31.0 [facility] Comment on above: Performed By: #### H S TROP, BMP, CBC ####[place] [id number] [facility] Creatinine [Mass/Vol] 3.15 mg/dL High 0.60-1.20 [facility] Comment on above: Performed By: #### H S TROP, BMP, CBC ####[place] [id number] [facility] Creatinine Clr Calc Pharmacy 13.33 Normal [facility] Comment on above: Result Comment: PERF ORMED BY:[address] [place], [place] [phone] MEDICAL DIRECTORRAMEZ LARSON M.D. Performed By: #### H S TROP, BMP, CBC ####[place] [id number] [place] GFR/1.73 sq M.predicted MDRD (S/P/Bld) [Vol rate/Area] 14.826 mL/min/{1.73_m2} Normal [facility] Comment on above: Performed By: #### H CHELSI WALL, CBC ####[address] Glucose [Mass/Vol] 328 mg/dL High 70-100 [facility] Comment on above: Result Comment: [facility] Glucose Reference Range is dependent on time and content of last meal. Glucose of more than 200 mg/dL in a nonstressed, ambulatory subject supports the diagnosis of Diabetes Mellitus. ADA recommended reference range Performed By: #### H CHELSI WALL, CBC ####[address] Potassium [Moles/Vol] 4.8 mmol/L Normal 3.5-5.1 [facility] Comment on above: Performed By: #### CHELSI JIMENEZ, CBC ####[address] Sodium [Moles/Vol] 129 mmol/L Low 136-145 [facility] Comment on above: Performed By: #### H CHELSI WALL, CBC ####[address] Urea nitrogen [Mass/Vol] 45 mg/dL High 7-25 [facility] Comment on above: Performed By: #### H CHELSI WALL, CBC ####[address] Complete Blood Count Auto Di ffon 12-13-2022 Basophils (Bld) [#/Vol] 0.0 10*3/uL Normal 0.0-0.2 [facility] Comment on above: Result Comment: PERF ORMED BY:[address] [place], [place] [phone] MEDICAL DIRECTORRAMEZ LARSON M.D. Performed By: #### H CHELSI WALL, CBC ####[address] [place] [address] [place] Basophils/100 WBC (Bld) 0.2 % Normal . T abimael [facility] Comment on above: Performed By: #### H S TROP BMP, CBC ####[address] Eosinophils (Bld) [#/Vol] 0.0 10*3/uL Normal 0.0-0.45 [facility] Comment on above: Performed By: #### H S TROP, BMP, CBC ####[address] Eosinophils/100 WBC (Bld) 0.0 % Normal . [facility] Comment on above: Performed By: #### H S TROP BMP, CBC ####[address] Erythrocyte distribution width (RBC) [Ratio] 17.4 % High 11.9-15.3 [facility] Comment on above: Performed By: #### H S TROP BMP, CBC ####[address] Hematocrit (Bld) [Volume fraction] 32.3 % Low 34.0-46.4 [facility] Comment on above: Performed By: #### H S TROP BMP, CBC ####[address] Hemoglobin (Bld) [Mass/Vol] 10.1 g/dL Low 11.8-15.4 [facility] Comment on above: Performed By: #### H S TROP, BMP, CBC ####[address] Lymphocytes (Bld) [#/Vol] 0.5 10*3/uL Low 1.00-4.8 [facility] Comment on above: Performed By: #### H S TROP, BMP, CBC ####[address] Lymphocytes/100 WBC (Bld) 4.0 % Normal . [facility] Comment on above: Performed By: #### H S TROP, BMP, CBC ####[address] MCH (RBC) [Entitic mass] 28.9 pg Normal 24.7-34.3 [facility] Comment on above: Performed By: #### H S TROP, BMP, CBC ####[address] MCV (RBC) [Entitic vol] 92.5 fL Normal 80-100 [facility] Comment on above: Performed By: #### H S TROP, BMP, CBC ####[address] Mean Corpuscular HGB Conc 31.3 g/dL Low 32.0-35.0 [facility] Comment on above: Performed By: #### H S TROP, BMP, CBC ####[address] Monocytes (Bld) [#/Vol] 0.4 10*3/uL Normal 0.0-0.8 [facility] Comment on above: Performed By: #### H S TROP, BMP, CBC ####[address] Monocytes/100 WBC (Bld) 3.2 % Normal . [facility] Comment on above: Performed By: #### H S TROP, BMP, CBC ####[address] Neutrophils (Bld) [#/Vol] 12.4 10*3/uL High 1.8-7.7 [facility] Comment on above: Performed By: #### H S TROP, BMP, CBC ####[address] Neutrophils/100 WBC (Bld) 92.6 % Normal . [facility] Comment on above: Performed By: #### H S TROP, BMP, CBC ####[address] NRBC% 0.0 /100{WBC} Normal 0-0.5 [facility] Comment on above: Performed By: #### H S TROP, BMP, CBC ####[address] Platelet mean volume (Bld) [Entitic vol] 7.7 fL Normal 6.3-10.7 [facility] Comment on above: Performed By: #### H S TROP, BMP, CBC ####[address] Platelets (Bld) [#/Vol] 312 10*3/uL Normal 150-450 [facility] Comment on above: Performed By: #### H S TROP, BMP, CBC ####[address] RBC (Bld) [#/Vol] 3.50 10*6/uL Low 3.60-5.00 [facility] Comment on above: Performed By: #### H S TROP, BMP, CBC ####[address] WBC (Bld) [#/Vol] 13.4 10*3/uL High 3.8-11.6 [facility] Comment on above: Performed By: #### H S TROP, BMP, CBC ####[address] ECG 12 lead ECGon 12-13-2022 ECG 12 lead ECG Normal [facility] Troponin I High Sensitivityo n 12-13-2022 Troponin I High Sensitivity 36.2 pg/mL High 0.0-15.0 [facility] Comment on above: Result Comment: PERF ORMED BY:[address] [place], [place] [phone] MEDICAL DIRECTORRAMEZ LARSON M.D. Performed By: #### H S TROP, BMP, CBC ####[address] Automated basophil %Ordered By: Pennie Love on 12-09-2022 Basophils/100 WBC (Bld) 0.5 % Normal . F [facility] Comment on above: Performed By: #### M G, CBC, BMP ####[address] Automated basophil countOrde red By: Pennie Love on 12-09-2022 Basophils (Bld) [#/Vol] 0.0 10*3/uL Normal 0.0-0.2 [facility] Comment on above: Result Comment: PERF ORMED BY:[address] [place], [place] [phone] MEDICAL DIRECTORRAMEZ LARSON M.D. Performed By: #### M G, CBC, BMP ####[address] Automated blood monocyte cou ntOrdered By: Pennie Love on 12-09-2022 Monocytes (Bld) [#/Vol] 0.7 10*3/uL Normal 0.0-0.8 [facility] Comment on above: Performed By: #### M G, CBC, BMP ####[address] Automated eosinophil %Ordere d By: Pennie Love on 12-09-2022 Eosinophils/100 WBC (Bld) 1.4 % Normal . [facility] Comment on above: Performed By: #### M G, CBC, BMP ####[address] Automated eosinophil countOr dered By: Pennie Love on 12-09-2022 Eosinophils (Bld) [#/Vol] 0.1 10*3/uL Normal 0.0-0.45 [facility] Comment on above: Performed By: #### M G, CBC, BMP ####[address] Automated monocyte %Ordered By: Pennie Love on 12-09-2022 Monocytes/100 WBC (Bld) 6.8 % Normal . F [facility] Comment on above: Performed By: #### M G, CBC, BMP ####[address] [place] [address] [facility] Automated neutrophil %Ordere d By: Pennie Love on 12-09-2022 Neutrophils/100 WBC (Bld) 77.6 % Normal . [facility] Comment on above: Performed By: #### M G, CBC, BMP ####[facility] [place] [address] [facility] Basic Metabolic Panelon 11-12 Creatinine Clr Calc Pharmacy 7.96 Normal [facility] Comment on above: Performed By: #### M G, CBC, BMP ####[place] [address] [place] [address] [facility] GFR/1.73 sq M.predicted MDRD (S/P/Bld) [Vol rate/Area] 7.995 mL/min/{1.73_m2} Normal [facility] Comment on above: Performed By: #### M G, CBC, BMP ####[place] [id number] [facility] Calcium [Mass/volume] in Ser um or PlasmaOrdered By: Pennie Love on 12-09-2022 Calcium [Mass/Vol] 9.5 mg/dL Normal 8.6-10.3 [facility] Comment on above: Performed By: #### M G, CBC, BMP ####[place] [address] [place] [address] [facility] Capillary blood glucose eugenie urement by glucometer (mass/volume)Ordered By: Teresa Pagan on 12-09-2022 Glucose [Mass/Vol] 282 mg/dL Normal [facility] Comment on above: Random Glucose Refer ence Range is dependent on time and content of last meal. Glucose of more than 200 mg/dL in a nonstressed, ambulatory subject supports the diagnosis of Diabetes Mellitus. Result Comment: [place] Glucose Reference Range is dependent on time and content of last meal. Glucose of more than 200 mg/dL in a nonstressed, ambulatory subject supports the diagnosis of Diabetes Mellitus.PERFORMED BY:[address] [place], [place] [phone] MEDICAL DIRECTORRAMEZ LARSON M.D. Performed By: #### G DAVID ####Point of Care testing, Carbon dioxide, total [Moles /volume] in Serum or PlasmaOrdered By: Pennie Love on 12-09-2022 CO2 [Moles/Vol] 26.7 mmol/L Normal 21.0-31.0 [facility] Comment on above: Performed By: #### M G, CBC, BMP ####[place] [address] Chloride [Moles/volume] in S steffanie or PlasmaOrdered By: Pennie Love on 12-09-2022 Chloride [Moles/Vol] 88 mmol/L Low 98-107 [facility] Comment on above: Performed By: #### M G, CBC, BMP ####[place] [address] Complete Blood Count Auto Di ffon 12-09-2022 Mean Corpuscular HGB Conc 31.3 g/dL Low 32.0-35.0 [facility] Comment on above: Performed By: #### M G, CBC, BMP ####[place] [address] NRBC% 0.0 /100{WBC} Normal 0-0.5 [facility] Comment on above: Performed By: #### M G, CBC, BMP ####[address] Creatinine [Mass/volume] in Serum or PlasmaOrdered By: Pnenie Love on 12-09-2022 Creatinine [Mass/Vol] 5.27 mg/dL Significan t change up 0.60-1.20 [facility] Comment on above: Delta: 4.34 on 12/08 Performed By: #### M G, CBC, BMP ####[address] Erythrocyte distribution wid th [Ratio] by Automated countOrdered By: Pennie Love on 12-09-2022 Erythrocyte distribution width (RBC) [Ratio] 17.5 % High 11.9-15.3 [facility] Comment on above: Performed By: #### M G, CBC, BMP ####[facility] [address] [place] [address] [facility] Erythrocytes [#/volume] in B lood by Automated countOrdered By: Pennie Love on 12-09-2022 RBC (Bld) [#/Vol] 3.77 10*6/uL Normal 3.60-5.00 [facility] Comment on above: Performed By: #### M G, CBC, BMP ####[facility] [address] [place] [address] [facility] Glucose Poct Glucometerson 1 Glucose [Mass/Vol] 172 mg/dL Normal [facility] Comment on above: Result Comment: [facility] Glucose Reference Range is dependent on time and content of last meal. Glucose of more than 200 mg/dL in a nonstressed, ambulatory subject supports the diagnosis of Diabetes Mellitus.PERFORMED BY:[address] [place], [place] [phone] MEDICAL DIRECTORRAMEZ LARSON M.D. Performed By: #### G LULS ####Point of Care testing, Glucose [Mass/Vol] 210 mg/dL Normal [facility] Comment on above: Result Comment: [facility] Glucose Reference Range is dependent on time and content of last meal. Glucose of more than 200 mg/dL in a nonstressed, ambulatory subject supports the diagnosis of Diabetes Mellitus.PERFORMED BY:[place] [address] [place], [place] [phone] MEDICAL DIRECTORRAMEZ LARSON M.D. Performed By: #### G LULS ####Point of Care testing, Glucose [Mass/volume] in Ser um or PlasmaOrdered By: Pennie Love on 12-09-2022 Glucose [Mass/Vol] 200 mg/dL High 70-100 [facility] Comment on above: ADA recommended refe rence rangeRandom Glucose Reference Range is dependent on time and content of last meal. Glucose of more than 200 mg/dL in a nonstressed, ambulatory subject supports the diagnosis of Diabetes Mellitus. Result Comment: [facility] Glucose Reference Range is dependent on time and content of last meal. Glucose of more than 200 mg/dL in a nonstressed, ambulatory subject supports the diagnosis of Diabetes Mellitus. ADA recommended reference range Performed By: #### M Sherry, CBC, BMP ####[facility] [place] [id number] [facility] Hematocrit [Volume Fraction] of Blood by Automated countOrdered By: Pennie Love on 12-09-2022 Hematocrit (Bld) [Volume fraction] 34.5 % Normal 34.0-46.4 [facility] Comment on above: Performed By: #### M Sherry, CBC, BMP ####[place] [address] Hemoglobin [Mass/volume] in BloodOrdered By: Pennie Love on 12-09-2022 Hemoglobin (Bld) [Mass/Vol] 10.8 g/dL Low 11.8-15.4 [facility] Comment on above: Performed By: #### M Sherry, CBC, BMP ####[place] [id number] [facility] Leukocytes [#/volume] correc tr for nucleated erythrocytes in Blood by Automated counOrdered By: Pennie Love on 12-09-2022 WBC corrected for nucl RBC Auto (Bld) [#/Vol] 10.4 10*3/uL 3.8-11.6 [facility] Leukocytes [#/volume] in Blo od by Automated countOrdered By: Pennie Love on 12-09-2022 WBC (Bld) [#/Vol] 10.4 10*3/uL Normal 3.8-11.6 [facility] Comment on above: Performed By: #### M Sherry, CBC, BMP ####[place] [id number] [facility] Lymphocytes [#/volume] in Bl ood by Automated countOrdered By: Pennie Love on 12-09-2022 Lymphocytes (Bld) [#/Vol] 1.4 10*3/uL Normal 1.00-4.8 [facility] Comment on above: Performed By: #### M G, CBC, BMP ####[place] [address] [place] [id number] [facility] Lymphocytes/100 leukocytes i n Blood by Automated countOrdered By: Pennie Love on 12-09-2022 Lymphocytes/100 WBC (Bld) 13.7 % Normal . [facility] Comment on above: Performed By: #### M G, CBC, BMP ####[place] [id number] [facility] MCH [Entitic mass] by Automa tr countOrdered By: Pennie Love on 12-09-2022 MCH (RBC) [Entitic mass] 28.6 pg Normal 24.7-34.3 [facility] Comment on above: Performed By: #### M G, CBC, BMP ####[place] [address] MCHC Auto (RBC) [Mass/Vol]Or dered By: Pennie Love on 12-09-2022 MCHC (RBC) [Mass/Vol] 31.3 g/dL 32.0-35.0 [facility] MCV [Entitic volume] by Auto mated countOrdered By: Pennie Love on 12-09-2022 MCV (RBC) [Entitic vol] 91.3 fL Normal 80-[address] [facility] Comment on above: Performed By: #### M G, CBC, BMP ####[place] [id number] [facility] Magnesium [Mass/volume] in S steffanie or PlasmaOrdered By: Pennie Love on 12-09-2022 Magnesium [Mass/Vol] 1.9 mg/dL Normal 1.9-2.7 [facility] Comment on above: Result Comment: PERF ORMED BY:[address] [place], [place] [phone] MEDICAL DIRECTORRAMEZ LARSON M.D. Performed By: #### M G, CBC, BMP ####[place] [id number] [facility] Neutrophils [#/volume] in Bl ood by Automated countOrdered By: Pennie Love on 12-09-2022 Neutrophils (Bld) [#/Vol] 8.1 10*3/uL High 1.8-7.7 [facility] Comment on above: Performed By: #### M Sherry, CBC, BMP ####[place] [address] No Panel InformationOrdered By: Pennie Love on 12-09-2022 Estimated GFR (CKD-EPI) 7.995 mL/Min [facility] Creatinine Clearance (Chem 7.96 [facility] Nucleated erythrocytes [Pres ence] in Blood by Automated countOrdered By: Pennie Love on 12-09-2022 Nucleated RBC Auto Ql (Bld) 0.0 /100{WBC} 0-0.5 [facility] Platelet mean volume [Entiti c volume] in Blood by Automated countOrdered By: Pennie Love on 12-09-2022 Platelet mean volume (Bld) [Entitic vol] 7.4 fL Normal 6.3-10.7 [facility] Comment on above: Performed By: #### M Sherry, CBC, BMP ####[place] [address] Platelets [#/volume] in Bloo d by Automated countOrdered By: Pennie Love on 12-09-2022 Platelets (Bld) [#/Vol] 405 10*3/uL Normal 150-450 [facility] Comment on above: Performed By: #### Braeden Powell, CBC, BMP ####[address] Potassium [Moles/volume] in Serum or PlasmaOrdered By: Penine Love on 12-09-2022 Potassium [Moles/Vol] 4.4 mmol/L Normal 3.5-5.1 [facility] Comment on above: Performed By: #### Braeden Powell, CBC, BMP ####[address] Serum or plasma anion gap de terminationOrdered By: Pennie Love on 12-09-2022 Anion gap [Moles/Vol] 17.7 mmol/L High 6.0-15.0 [facility] Comment on above: Performed By: #### M G, CBC, BMP ####[place] [id number] [facility] Sodium [Moles/volume] in Ser um or PlasmaOrdered By: Pennie Love on 12-09-2022 Sodium [Moles/Vol] 128 mmol/L Low 136-145 [facility] Comment on above: Performed By: #### M G, CBC, BMP ####[place] [id number] [facility] Urea nitrogen [Mass/volume] in Serum or PlasmaOrdered By: Pennie Love on 12-09-2022 Urea nitrogen [Mass/Vol] 73 mg/dL High 7-25 [facility] Comment on above: Performed By: #### M G, CBC, BMP ####[place] [id number] [facility] Basic Metabolic Panelon 11-11 Anion gap [Moles/Vol] 17.9 mmol/L High 6.0-15.0 [facility] Comment on above: Performed By: #### M G, BMP, HS TROP, CBC ####[place] [id number] [facility] Calcium [Mass/Vol] 9.4 mg/dL Normal 8.6-10.3 [facility] Comment on above: Performed By: #### M G, BMP, HS TROP, CBC ####[place] [id number] [facility] Chloride [Moles/Vol] 92 mmol/L Low 98-107 [facility] Comment on above: Performed By: #### M G, BMP, HS TROP, CBC ####[place] [id number] [facility] CO2 [Moles/Vol] 25.3 mmol/L Normal 21.0-31.0 [facility] Comment on above: Performed By: #### M G, BMP, HS TROP, CBC ####[place] [id number] [facility] Creatinine [Mass/Vol] 4.34 mg/dL Significan t change up 0.60-1.20 [facility] Comment on above: Performed By: #### M G, BMP, HS TROP, CBC ####[place] [address] Creatinine Clr Calc Pharmacy 9.67 Normal [facility] Comment on above: Performed By: #### M G, BMP, HS TROP, CBC ####[address] GFR/1.73 sq M.predicted MDRD (S/P/Bld) [Vol rate/Area] 10.093 mL/min/{1.73_m2} Normal [facility] Comment on above: Performed By: #### M G, BMP, HS TROP, CBC ####[address] Glucose [Mass/Vol] 179 mg/dL High 70-100 [facility] Comment on above: Result Comment: [place] Glucose Reference Range is dependent on time and content of last meal. Glucose of more than 200 mg/dL in a nonstressed, ambulatory subject supports the diagnosis of Diabetes Mellitus. ADA recommended reference range Performed By: #### M G, BMP, HS TROP, CBC ####[address] Potassium [Moles/Vol] 4.2 mmol/L Normal 3.5-5.1 [facility] Comment on above: Performed By: #### M G, BMP, HS TROP, CBC ####[place] [id number] [facility] Sodium [Moles/Vol] 131 mmol/L Low 136-145 [facility] Comment on above: Performed By: #### M G, BMP, HS TROP, CBC ####[place] [id number] [facility] Urea nitrogen [Mass/Vol] 59 mg/dL High 7-25 [facility] Comment on above: Performed By: #### M G, BMP, HS TROP, CBC ####[place] [address] [place] [address] [facility] Complete Blood Count Auto Di ffon 12-08-2022 Basophils (Bld) [#/Vol] 0.0 10*3/uL Normal 0.0-0.2 [facility] Comment on above: Result Comment: PERF ORMED BY:[address] [place], [place] [phone] MEDICAL DIRECTORRAMEZ LARSON M.D. Performed By: #### M G, BMP, HS TROP, CBC ####[place] [id number] [facility] Basophils/100 WBC (Bld) 0.2 % Normal . T abimael [facility] Comment on above: Performed By: #### M G, BMP, HS TROP, CBC ####[place] [id number] [facility] Eosinophils (Bld) [#/Vol] 0.1 10*3/uL Normal 0.0-0.45 [facility] Comment on above: Performed By: #### M G, BMP, HS TROP, CBC ####[place] [id number] [facility] Eosinophils/100 WBC (Bld) 0.7 % Normal . [facility] Comment on above: Performed By: #### M G, BMP, HS TROP, CBC ####[place] [id number] [facility] Erythrocyte distribution width (RBC) [Ratio] 17.1 % High 11.9-15.3 [facility] Comment on above: Performed By: #### M G, BMP, HS TROP, CBC ####[address] [address] [facility] Hematocrit (Bld) [Volume fraction] 33.4 % Low 34.0-46.4 [facility] Comment on above: Performed By: #### M G, BMP, HS TROP, CBC ####[place] [id number] [facility] Hemoglobin (Bld) [Mass/Vol] 10.7 g/dL Low 11.8-15.4 [facility] Comment on above: Performed By: #### M G, BMP, HS TROP, CBC ####[address] Lymphocytes (Bld) [#/Vol] 1.6 10*3/uL Normal 1.00-4.8 [facility] Comment on above: Performed By: #### M G, BMP, HS TROP, CBC ####[address] Lymphocytes/100 WBC (Bld) 16.3 % Normal . [facility] Comment on above: Performed By: #### M G, BMP, HS TROP, CBC ####[address] MCH (RBC) [Entitic mass] 29.4 pg Normal 24.7-34.3 [facility] Comment on above: Performed By: #### M G, BMP, HS TROP, CBC ####[address] MCV (RBC) [Entitic vol] 91.9 fL Normal 80-100 [facility] Comment on above: Performed By: #### M G, BMP, HS TROP, CBC ####[address] Mean Corpuscular HGB Conc 32.0 g/dL Normal 32.0-35.0 [facility] Comment on above: Performed By: #### M G, BMP, HS TROP, CBC ####[address] Monocytes (Bld) [#/Vol] 1.0 10*3/uL High 0.0-0.8 [facility] Comment on above: Performed By: #### M G, BMP, HS TROP, CBC ####[address] Monocytes/100 WBC (Bld) 9.7 % Normal . [facility] Comment on above: Performed By: #### M G, BMP, HS TROP, CBC ####[address] Neutrophils (Bld) [#/Vol] 7.2 10*3/uL Normal 1.8-7.7 [facility] Comment on above: Performed By: #### M G, BMP, HS TROP, CBC ####[place] [id number] [facility] Neutrophils/100 WBC (Bld) 73.1 % Normal . [facility] Comment on above: Performed By: #### M G, BMP, HS TROP, CBC ####[address] NRBC% 0.0 /100{WBC} Normal 0-0.5 [facility] Comment on above: Performed By: #### M G, BMP, HS TROP, CBC ####[address] Platelet mean volume (Bld) [Entitic vol] 7.4 fL Normal 6.3-10.7 [facility] Comment on above: Performed By: #### M G, BMP, HS TROP, CBC ####[address] Platelets (Bld) [#/Vol] 377 10*3/uL Normal 150-450 [facility] Comment on above: Performed By: #### M G, BMP, HS TROP, CBC ####[address] RBC (Bld) [#/Vol] 3.64 10*6/uL Normal 3.60-5.00 [facility] Comment on above: Performed By: #### M G, BMP, HS TROP, CBC ####[address] WBC (Bld) [#/Vol] 9.8 10*3/uL Normal 3.8-11.6 [facility] Comment on above: Performed By: #### M G, BMP, HS TROP, CBC ####[place] [id number] [facility] Glucose Poct Glucometerson 1 Glucose [Mass/Vol] 294 mg/dL Normal [facility] Comment on above: Result Comment: [place] Glucose Reference Range is dependent on time and content of last meal. Glucose of more than 200 mg/dL in a nonstressed, ambulatory subject supports the diagnosis of Diabetes Mellitus.PERFORMED BY:[address] [place], [place] [phone] MEDICAL DIRECTORRAMEZ LARSON M.D. Performed By: #### G LULS ####Point of Care testing, Glucose [Mass/Vol] 334 mg/dL Normal [facility] Comment on above: Result Comment: [facility] Glucose Reference Range is dependent on time and content of last meal. Glucose of more than 200 mg/dL in a nonstressed, ambulatory subject supports the diagnosis of Diabetes Mellitus.PERFORMED BY:[address] [place], [place] [phone] MEDICAL MAJOR LARSON M.D. Performed By: #### G LULS ####Point of Care testing, Glucose [Mass/Vol] 236 mg/dL Normal [facility] Comment on above: Result Comment: [facility] Glucose Reference Range is dependent on time and content of last meal. Glucose of more than 200 mg/dL in a nonstressed, ambulatory subject supports the diagnosis of Diabetes Mellitus.PERFORMED BY:[address] [place], [place] [phone] MEDICAL MAJOR LARSON M.D. Performed By: #### G LULS ####Point of Care testing, Glucose [Mass/Vol] 179 mg/dL Normal [facility] Comment on above: Result Comment: [facility] Glucose Reference Range is dependent on time and content of last meal. Glucose of more than 200 mg/dL in a nonstressed, ambulatory subject supports the diagnosis of Diabetes Mellitus.PERFORMED BY:[address] [place], [place] [phone] BARRETT LARSON M.D. Performed By: #### G LULS ####Point of Care testing, Magnesiumon 12-08-2022 Magnesium [Mass/Vol] 2.0 mg/dL Normal 1.9-2.7 [facility] Comment on above: Result Comment: PERF ORMED BY:[place] [address] [address] [place], [place] [phone] MEDICAL DIRECTORRAMEZ LARSON M.D. Performed By: #### M G, BMP, HS TROP, CBC ####[address] [address] [facility] Troponin I High Sensitivityo n 12-08-2022 Troponin I High Sensitivity 23.4 pg/mL High 0.0-15.0 [facility] Comment on above: Result Comment: PERF ORMED BY:[place] [address] [place], [place] [phone] MEDICAL DIRECTORRAMEZ LARSON M.D. Performed By: #### M G, BMP, HS TROP, CBC ####[address] [address] [facility] Troponin I.cardiac [Mass/vol ume] in Serum or Plasma by Detection limit <= 0.01 ng/Ordered By: Pennie Love on 12-08-2022 Troponin I.cardiac DL <= 0.01 ng/mL [Mass/Vol] 23.4 pg/mL 0.0-15.0 [facility] Basic Metabolic Panelon 11-11 Anion gap [Moles/Vol] 16.0 mmol/L High 6.0-15.0 Th e [facility] Comment on above: Performed By: #### M G, BMP, CBC ####[address] [address] [facility] Calcium [Mass/Vol] 9.5 mg/dL Normal 8.6-10.3 [facility] Comment on above: Performed By: #### M G, BMP, CBC ####[address] [address] [facility] Chloride [Moles/Vol] 92 mmol/L Low 98-107 [facility] Comment on above: Performed By: #### M G, BMP, CBC ####[place] [address] [place] [address] [facility] CO2 [Moles/Vol] 28.9 mmol/L Normal 21.0-31.0 [facility] Comment on above: Performed By: #### CHELSI Billings, CBC ####[place] [id number] [facility] Creatinine [Mass/Vol] 3.15 mg/dL Significan t change up 0.60-1.20 [facility] Comment on above: Performed By: #### CHELSI Billings, CBC ####[place] [address] [place] Creatinine Clr Calc Pharmacy 13.33 Normal [facility] Comment on above: Performed By: #### CHELSI Billings, CBC ####[place] [id number] [facility] GFR/1.73 sq M.predicted MDRD (S/P/Bld) [Vol rate/Area] 14.826 mL/min/{1.73_m2} Normal [facility] Comment on above: Performed By: #### CHELSI Billings, CBC ####[place] [id number] [facility] Glucose [Mass/Vol] 240 mg/dL High 70-100 [facility] Comment on above: Result Comment: [place] Glucose Reference Range is dependent on time and content of last meal. Glucose of more than 200 mg/dL in a nonstressed, ambulatory subject supports the diagnosis of Diabetes Mellitus. ADA recommended reference range Performed By: #### CHELSI Billings, CBC ####[place] [id number] [facility] Potassium [Moles/Vol] 3.9 mmol/L Normal 3.5-5.1 [facility] Comment on above: Performed By: #### CHELSI Billings, CBC ####[place] [id number] [facility] Sodium [Moles/Vol] 133 mmol/L Low 136-145 [facility] Comment on above: Performed By: #### CHELSI Billings, CBC ####[place] [id number] [facility] Urea nitrogen [Mass/Vol] 35 mg/dL High 7-25 [facility] Comment on above: Performed By: #### Braeden Powell BMP, CBC ####[place] [id number] [facility] Complete Blood Count Auto Di ffon 12-07-2022 Basophils (Bld) [#/Vol] 0.0 10*3/uL Normal 0.0-0.2 [facility] Comment on above: Result Comment: PERF ORMED BY:[address] [place], [place] [phone] MEDICAL DIRECTORRAMEZ LARSON M.D. Performed By: #### CHELSI Billings, CBC ####[address] Basophils/100 WBC (Bld) 0.1 % Normal . T he [facility] Comment on above: Performed By: #### CHELSI Billings, CBC ####[address] Eosinophils (Bld) [#/Vol] 0.0 10*3/uL Normal 0.0-0.45 [facility] Comment on above: Performed By: #### CHELSI Billings, CBC ####[address] Eosinophils/100 WBC (Bld) 0.0 % Normal . [facility] Comment on above: Performed By: #### CHELSI Billings, CBC ####[place] [id number] [facility] Erythrocyte distribution width (RBC) [Ratio] 17.2 % High 11.9-15.3 [facility] Comment on above: Performed By: #### Braeden Powell BMP, CBC ####[place] [id number] [facility] Hematocrit (Bld) [Volume fraction] 35.5 % Normal 34.0-46.4 [facility] Comment on above: Performed By: #### Braeden Powell BMP, CBC ####[address] Hemoglobin (Bld) [Mass/Vol] 11.2 g/dL Low 11.8-15.4 [facility] Comment on above: Performed By: #### Braeden Powell BMP, CBC ####[address] Lymphocytes (Bld) [#/Vol] 0.9 10*3/uL Low 1.00-4.8 [facility] Comment on above: Performed By: #### Braeden Powell BMP, CBC ####[address] Lymphocytes/100 WBC (Bld) 9.7 % Normal . [facility] Comment on above: Performed By: #### Braeden Powell BMP, CBC ####[address] MCH (RBC) [Entitic mass] 29.0 pg Normal 24.7-34.3 [facility] Comment on above: Performed By: #### CHELSI Billings, CBC ####[address] MCV (RBC) [Entitic vol] 92.1 fL Normal 80-100 T he [facility] Comment on above: Performed By: #### Braeden Powell BMP, CBC ####[address] Mean Corpuscular HGB Conc 31.5 g/dL Low 32.0-35.0 [facility] Comment on above: Performed By: #### Braeden Powell, BMP, CBC ####[address] Monocytes (Bld) [#/Vol] 0.8 10*3/uL Normal 0.0-0.8 [facility] Comment on above: Performed By: #### Braeden Powell BMP, CBC ####[address] Monocytes/100 WBC (Bld) 8.5 % Normal . T he [facility] Comment on above: Performed By: #### CHELSI Billings, CBC ####[address] Neutrophils (Bld) [#/Vol] 7.8 10*3/uL High 1.8-7.7 [facility] Comment on above: Performed By: #### Braeden Powell BMP, CBC ####[address] Neutrophils/100 WBC (Bld) 81.7 % Normal . [facility] Comment on above: Performed By: #### CHELSI Billings, CBC ####[address] NRBC% 0.1 /100{WBC} Normal 0-0.5 [facility] Comment on above: Performed By: #### CHELSI Billings, CBC ####[address] Platelet mean volume (Bld) [Entitic vol] 7.3 fL Normal 6.3-10.7 [facility] Comment on above: Performed By: #### CHELSI Billings, CBC ####[address] Platelets (Bld) [#/Vol] 387 10*3/uL Normal 150-450 [facility] Comment on above: Performed By: #### CHELSI Billings, CBC ####[address] RBC (Bld) [#/Vol] 3.86 10*6/uL Normal 3.60-5.00 [facility] Comment on above: Performed By: #### CHELSI Billings, CBC ####[address] WBC (Bld) [#/Vol] 9.5 10*3/uL Normal 3.8-11.6 [facility] Comment on above: Performed By: #### Braeden Powell BMP, CBC ####[address] [place] [address] [facility] ECG 12 lead ECGon 12-07-2022 ECG 12 lead ECG Normal [facility] Glucose Poct Glucometerson 1 Glucose [Mass/Vol] 250 mg/dL Normal [facility] Comment on above: Result Comment: [place] Glucose Reference Range is dependent on time and content of last meal. Glucose of more than 200 mg/dL in a nonstressed, ambulatory subject supports the diagnosis of Diabetes Mellitus.PERFORMED BY:[address] [place], [place] [phone] MEDICAL DIRECTORRAMEZ LARSON M.D. Performed By: #### G LULS ####Point of Care testing, Glucose [Mass/Vol] 276 mg/dL Normal [facility] Comment on above: Result Comment: [place] Glucose Reference Range is dependent on time and content of last meal. Glucose of more than 200 mg/dL in a nonstressed, ambulatory subject supports the diagnosis of Diabetes Mellitus.PERFORMED BY:[address] [place], [place] [phone] MEDICAL MAJOR LARSON M.D. Performed By: #### G LULS ####Point of Care testing, Glucose [Mass/Vol] 209 mg/dL Normal [facility] Comment on above: Result Comment: [place] Glucose Reference Range is dependent on time and content of last meal. Glucose of more than 200 mg/dL in a nonstressed, ambulatory subject supports the diagnosis of Diabetes Mellitus.PERFORMED BY:[address] [place], [place] [phone] MEDICAL MAJOR LARSON M.D. Performed By: #### G LULS ####Point of Care testing, Glucose [Mass/Vol] 229 mg/dL Normal [facility] Comment on above: Result Comment: [place] Glucose Reference Range is dependent on time and content of last meal. Glucose of more than 200 mg/dL in a nonstressed, ambulatory subject supports the diagnosis of Diabetes Mellitus.PERFORMED BY:[address] [place], [place] [phone] MEDICAL DIRECTORRAMEZ LARSON M.D. Performed By: #### G LULS ####Point of Care testing, Magnesiumon 12-07-2022 Magnesium [Mass/Vol] 2.0 mg/dL Normal 1.9-2.7 [facility] Comment on above: Result Comment: PERF ORMED BY:[place] [address] [place], [place] [phone] MEDICAL DIRECTORRAMEZ LARSON M.D. Performed By: #### M G, BMP, CBC ####[place] [address] [place] [address] [facility] Activated partial thrombopla stin time (aPTT) in platelet poor plasma by coagulation aOrdered By: Yusra Santoyo on 12-06-2022 aPTT Coag (PPP) [Time] 29.3 s 25.1-36.5 [facility] Comment on above: A hematocrit value g reater than 55% may lead to inaccurate results in coagulation testing. Patients having hematocrit values >55% require a special collection tube for coagulation studies. Please contact the laboratory at [phone] for redraw instructions. Automated basophil %Ordered By: Yusra Santoyo on 12-06-2022 Basophils/100 WBC (Bld) 0.3 % Normal . [facility] Comment on above: Performed By: #### C BC, MG, HS TROP, BNP, PT, BMP, PTT ####[address] [address] [facility] Automated basophil countOrde red By: Yusra Santoyo on 12-06-2022 Basophils (Bld) [#/Vol] 0.0 10*3/uL Normal 0.0-0.2 [facility] Comment on above: Result Comment: PERF ORMED BY:[place] [address] [place], [place] [phone] MEDICAL DIRECTORRAMEZ LARSON M.D. Performed By: #### C BC, MG, HS TROP, BNP, PT, BMP, PTT ####[facility] [address] Automated blood monocyte cou ntOrdered By: Yusra Isaakanksha on 12-06-2022 Monocytes (Bld) [#/Vol] 0.6 10*3/uL Normal 0.0-0.8 [facility] Comment on above: Performed By: #### C BC, MG, HS TROP, BNP, PT, BMP, PTT ####[address] Automated eosinophil %Ordere d By: Yusra Isaakanksha on 12-06-2022 Eosinophils/100 WBC (Bld) 0.1 % Normal . [facility] Comment on above: Performed By: #### C BC, MG, HS TROP, BNP, PT, BMP, PTT ####[address] Automated eosinophil countOr dered By: Yusra Isaakanksha on 12-06-2022 Eosinophils (Bld) [#/Vol] 0.0 10*3/uL Normal 0.0-0.45 [facility] Comment on above: Performed By: #### C BC, MG, HS TROP, BNP, PT, BMP, PTT ####[address] Automated monocyte %Ordered By: Yusra Isaakanksha on 12-06-2022 Monocytes/100 WBC (Bld) 4.3 % Normal . [facility] Comment on above: Performed By: #### C BC, MG, HS TROP, BNP, PT, BMP, PTT ####[address] Automated neutrophil %Ordere d By: Yusra Isaakanksha on 12-06-2022 Neutrophils/100 WBC (Bld) 89.9 % Normal . [facility] Comment on above: Performed By: #### C BC, MG, HS TROP, BNP, PT, BMP, PTT ####[address] BNP ser/plasOrdered By: Gisell Santoyo on 12-06-2022 Natriuretic peptide B (Bld) [Mass/Vol] 950.0 pg/mL High 5-100 [facility] Comment on above: Result Comment: PERF ORMED BY:[address] [place], [place] [phone] MEDICAL DIRECTORRAMEZ LARSON M.D. Performed By: #### C BC, MG, HS TROP, BNP, PT, BMP, PTT ####[place] [id number] [facility] Basic Metabolic Panelon 10 Creatinine Clr Calc Pharmacy 16.27 Normal [facility] Comment on above: Result Comment: PERF ORMED BY:[address] [place] [phone] MEDICAL DIRECTORRAMEZ LARSON M.D. Performed By: #### C BC, MG, HS TROP, BNP, PT, BMP, PTT ####[place] [id number] [facility] GFR/1.73 sq M.predicted MDRD (S/P/Bld) [Vol rate/Area] 18.839 mL/min/{1.73_m2} Normal [facility] Comment on above: Performed By: #### C BC, MG, HS TROP, BNP, PT, BMP, PTT ####[place] [id number] [facility] CT cervical spine wo conon 1 CT cervical spine wo con Normal [facility] CT head/brain wo conon 12-06 CT head/brain wo con Normal [facility] Calcium [Mass/volume] in Ser um or PlasmaOrdered By: Yusra Santoyo on 12-06-2022 Calcium [Mass/Vol] 9.8 mg/dL Normal 8.6-10.3 [facility] Comment on above: Performed By: #### C BC, MG, HS TROP, BNP, PT, BMP, PTT ####[place] [id number] [facility] Carbon dioxide, total [Moles /volume] in Serum or PlasmaOrdered By: Yusra Santoyo on 12-06-2022 CO2 [Moles/Vol] 27.9 mmol/L Normal 21.0-31.0 [facility] Comment on above: Performed By: #### C BC, MG, HS TROP, BNP, PT, BMP, PTT ####[address] Chloride [Moles/volume] in S steffanie or PlasmaOrdered By: Yusra Santoyo on 12-06-2022 Chloride [Moles/Vol] 91 mmol/L Low 98-107 [facility] Comment on above: Performed By: #### C BC, MG, HS TROP, BNP, PT, BMP, PTT ####[address] Complete Blood Count Auto Di ffon 12-06-2022 Mean Corpuscular HGB Conc 31.3 g/dL Low 32.0-35.0 [facility] Comment on above: Performed By: #### C BC, MG, HS TROP, BNP, PT, BMP, PTT ####[address] Monocytes/100 WBC (Bld) 21.25 % High 0.00-20.00 [facility] Comment on above: Result Comment: For adults in ED, MDW > 20.0 may be associated with a higher risk of sepsis during the first 12 hrs of hospital admission Performed By: #### C BC, MG, HS TROP, BNP, PT, BMP, PTT ####[address] NRBC% 0.1 /100{WBC} Normal 0-0.5 [facility] Comment on above: Performed By: #### C BC, MG, HS TROP, BNP, PT, BMP, PTT ####[address] Creatinine [Mass/volume] in Serum or PlasmaOrdered By: Yusra Santoyo on 12-06-2022 Creatinine [Mass/Vol] 2.58 mg/dL High 0.60-1.20 [facility] Comment on above: Performed By: #### C BC, MG, HS TROP, BNP, PT, BMP, PTT ####[facility] [place] [id number] [facility] ECG 12 lead ECGon 12-06-2022 ECG 12 lead ECG Normal [facility] ECG 12 lead ECG Normal [facility] Erythrocyte distribution wid th [Ratio] by Automated countOrdered By: Yusra Santoyo on 12-06-2022 Erythrocyte distribution width (RBC) [Ratio] 17.6 % High 11.9-15.3 [facility] Comment on above: Performed By: #### C BC, MG, HS TROP, BNP, PT, BMP, PTT ####[place] [address] Erythrocytes [#/volume] in B lood by Automated countOrdered By: Yusra Santoyo on 12-06-2022 RBC (Bld) [#/Vol] 3.83 10*6/uL Normal 3.60-5.00 [facility] Comment on above: Performed By: #### C BC, MG, HS TROP, BNP, PT, BMP, PTT ####[address] Glucose [Mass/volume] in Ser um or PlasmaOrdered By: Yusra Santoyo on 12-06-2022 Glucose [Mass/Vol] 288 mg/dL High 70-100 [facility] Comment on above: ADA recommended refe rence rangeRandom Glucose Reference Range is dependent on time and content of last meal. Glucose of more than 200 mg/dL in a nonstressed, ambulatory subject supports the diagnosis of Diabetes Mellitus. Result Comment: [place] om Glucose Reference Range is dependent on time and content of last meal. Glucose of more than 200 mg/dL in a nonstressed, ambulatory subject supports the diagnosis of Diabetes Mellitus. ADA recommended reference range Performed By: #### C BC, MG, HS TROP, BNP, PT, BMP, PTT ####[facility] [place] [id number] [facility] Hematocrit [Volume Fraction] of Blood by Automated countOrdered By: Yusra Santoyo on 12-06-2022 Hematocrit (Bld) [Volume fraction] 35.1 % Normal 34.0-46.4 [facility] Comment on above: Performed By: #### C BC, MG, HS TROP, BNP, PT, BMP, PTT ####[facility] [id number] Hemoglobin [Mass/volume] in BloodOrdered By: Yusra Santoyo on 12-06-2022 Hemoglobin (Bld) [Mass/Vol] 11.0 g/dL Low 11.8-15.4 [facility] Comment on above: Performed By: #### C BC, MG, HS TROP, BNP, PT, BMP, PTT ####[facility] INR in Platelet poor plasma by Coagulation assayOrdered By: Yusra Santoyo on 12-06-2022 INR Coag (PPP) [Relative time] 1.0 {INR} Normal [facility] Comment on above: INR Therapeutic [...] 3 - 4.5 Performed By: #### C BC, MG, HS TROP, BNP, PT, BMP, PTT ####[facility] Leukocytes [#/volume] correc tr for nucleated erythrocytes in Blood by Automated counOrdered By: Yusra Santoyo on 12-06-2022 WBC corrected for nucl RBC Auto (Bld) [#/Vol] 13.3 10*3/uL 3.8-11.6 [facility] Leukocytes [#/volume] in Blo od by Automated countOrdered By: Yusra Santoyo on 12-06-2022 WBC (Bld) [#/Vol] 13.3 10*3/uL High 3.8-11.6 [facility] Comment on above: Performed By: #### C BC, MG, HS TROP, BNP, PT, BMP, PTT ####[place] [address] Lymphocytes [#/volume] in Bl ood by Automated countOrdered By: Yusra Santoyo on 12-06-2022 Lymphocytes (Bld) [#/Vol] 0.7 10*3/uL Low 1.00-4.8 [facility] Comment on above: Performed By: #### C BC, MG, HS TROP, BNP, PT, BMP, PTT ####[place] [address] Lymphocytes/100 leukocytes i n Blood by Automated countOrdered By: Yusra Santoyo on 12-06-2022 Lymphocytes/100 WBC (Bld) 5.4 % Normal . [facility] Comment on above: Performed By: #### C BC, MG, HS TROP, BNP, PT, BMP, PTT ####[place] [address] MCH [Entitic mass] by Automa tr countOrdered By: Yusra Santoyo on 12-06-2022 MCH (RBC) [Entitic mass] 28.7 pg Normal 24.7-34.3 [facility] Comment on above: Performed By: #### C BC, MG, HS TROP, BNP, PT, BMP, PTT ####[place] [id number] [facility] MCHC Auto (RBC) [Mass/Vol]Or dered By: Yusra Santoyo on 12-06-2022 MCHC (RBC) [Mass/Vol] 31.3 g/dL 32.0-35.0 [facility] MCV [Entitic volume] by Auto mated countOrdered By: Yusra Santoyo on 12-06-2022 MCV (RBC) [Entitic vol] 91.7 fL Normal 80-[address] [facility] Comment on above: Performed By: #### C BC, MG, HS TROP, BNP, PT, BMP, PTT ####[place] [address] [place] [id number] [facility] Magnesium [Mass/volume] in S steffanie or PlasmaOrdered By: Yusra Santoyo on 12-06-2022 Magnesium [Mass/Vol] 2.0 mg/dL Normal 1.9-2.7 [facility] Comment on above: Result Comment: PERF ORMED BY:[address] [place], [place] [phone] MEDICAL DIRECTORRAMEZ LARSON M.D. Performed By: #### C BC, MG, HS TROP, BNP, PT, BMP, PTT ####[place] [address] [place] [id number] [facility] Monocyte distribution width [Entitic volume] in Blood by AutomatedOrdered By: Yusra Santoyo on 12-06-2022 Monocyte distribution width Auto (Bld) [Entitic vol] 21.25 % 0.00-20.00 [facility] Comment on above: For adults in ED, MD W > 20.0 may be associated with a higher risk of sepsis during the first 12 hrs of hospital admission Neutrophils [#/volume] in Bl ood by Automated countOrdered By: Yusra Santoyo on 12-06-2022 Neutrophils (Bld) [#/Vol] 11.9 10*3/uL High 1.8-7.7 [facility] Comment on above: Performed By: #### C BC, MG, HS TROP, BNP, PT, BMP, PTT ####[place] [id number] [facility] No Panel InformationOrdered By: Yusra Santoyo on 12-06-2022 Estimated GFR (CKD-EPI) 18.839 mL/Min [facility] Creatinine Clearance (Chem 16.27 [facility] Nucleated erythrocytes [Pres ence] in Blood by Automated countOrdered By: Yusra Santoyo on 12-06-2022 Nucleated RBC Auto Ql (Bld) 0.1 /100{WBC} 0-0.5 [facility] Partial Thromboplastin Timeo n 12-06-2022 aPTT Coag (Bld) [Time] 29.3 s Normal 25.1-36.5 [facility] Comment on above: Result Comment: A he matocrit value greater than 55% may lead to inaccurate results in coagulation testing. Patients having hematocrit values >55% require a special collection tube for coagulation studies. Please contact the laboratory at [phone] for redraw instructions.PERFORMED BY:[address] [place], [place] [phone] MEDICAL DIRECTORRAMEZ LARSON M.D. Performed By: #### C BC, MG, HS TROP, BNP, PT, BMP, PTT ####[place] [address] [place] [address] [facility] Platelet mean volume [Entiti c volume] in Blood by Automated countOrdered By: Yusra Santoyo on 12-06-2022 Platelet mean volume (Bld) [Entitic vol] 7.3 fL Normal 6.3-10.7 [facility] Comment on above: Performed By: #### C BC, MG, HS TROP, BNP, PT, BMP, PTT ####[address] [address] [facility] Platelets [#/volume] in Bloo d by Automated countOrdered By: Yusra Santoyo on 12-06-2022 Platelets (Bld) [#/Vol] 431 10*3/uL Normal 150-450 [facility] Comment on above: Performed By: #### C BC, MG, HS TROP, BNP, PT, BMP, PTT ####[address] [address] [facility] Potassium [Moles/volume] in Serum or PlasmaOrdered By: Yusra Santoyo on 12-06-2022 Potassium [Moles/Vol] 3.6 mmol/L Normal 3.5-5.1 [facility] Comment on above: Performed By: #### C BC, MG, HS TROP, BNP, PT, BMP, PTT ####[place] [address] [place] [address] [facility] Prothrombin time (PT)Ordered By: Yusra Santoyo on 12-06-2022 PT Coag (PPP) [Time] 12.4 s Normal 9.0-12.9 [facility] Comment on above: A hematocrit value g reater than 55% may lead to inaccurate results in coagulation testing. Patients having hematocrit values >55% require a special collection tube for coagulation studies. Please contact the laboratory at [phone] for redraw instructions. Result Comment: A matocrit value greater than 55% may lead to inaccurate results in coagulation testing. Patients having hematocrit values >55% require a special collection tube for coagulation studies. Please contact the laboratory at [phone] for redraw instructions. Performed By: #### C BC, MG, HS TROP, BNP, PT, BMP, PTT ####[place] [address] [place] [address] [facility] Serum or plasma anion gap de terminationOrdered By: Yusra Santoyo on 12-06-2022 Anion gap [Moles/Vol] 16.7 mmol/L High 6.0-15.0 [facility] Comment on above: Performed By: #### C BC, MG, HS TROP, BNP, PT, BMP, PTT ####[place] [address] [place] [address] [facility] Sodium [Moles/volume] in Ser um or PlasmaOrdered By: Yusra Santoyo on 12-06-2022 Sodium [Moles/Vol] 132 mmol/L Low 136-145 [facility] Comment on above: Performed By: #### C BC, MG, HS TROP, BNP, PT, BMP, PTT ####[address] [address] [facility] Troponin I High Sensitivityo n 12-06-2022 Troponin I High Sensitivity 17.6 pg/mL High 0.0-15.0 [facility] Comment on above: Result Comment: PERF ORMED BY:[address] [place], [place] [phone] MEDICAL DIRECTORRAMEZ LARSON M.D. Performed By: #### C BC, MG, HS TROP, BNP, PT, BMP, PTT ####[place] [address] [place] [id number] [facility] Troponin I.cardiac [Mass/vol ume] in Serum or Plasma by Detection limit <= 0.01 ng/Ordered By: Yusra Satnoyo on 12-06-2022 Troponin I.cardiac DL <= 0.01 ng/mL [Mass/Vol] 17.6 pg/mL 0.0-15.0 [facility] Urea nitrogen [Mass/volume] in Serum or PlasmaOrdered By: Yusra Santoyo on 12-06-2022 Urea nitrogen [Mass/Vol] 25 mg/dL Normal 7-25 [facility] Comment on above: Performed By: #### C BC, MG, HS TROP, BNP, PT, BMP, PTT ####[place] [id number] [facility] XR chest 2V*on 12-06-2022 XR chest 2V* Normal [facility] Automated basophil %Ordered By: Carlton Mtz on 10-31-2022 Basophils/100 WBC (Bld) 0.7 % Normal . [facility] Comment on above: Performed By: #### C BC, BMP ####[place] [id number] [facility] Automated basophil countOrde red By: Carlton Mtz on 10-31-2022 Basophils (Bld) [#/Vol] 0.0 10*3/uL Normal 0.0-0.2 [facility] Comment on above: Result Comment: PERF ORMED BY:[address] [place], [place] [phone] MEDICAL DIRECTORRAMEZ LARSON M.D. Performed By: #### C BC, BMP ####[place] [id number] [facility] Automated blood monocyte cou ntOrdered By: Carlton Mtz on 10-31-2022 Monocytes (Bld) [#/Vol] 0.7 10*3/uL Normal 0.0-0.8 [facility] Comment on above: Performed By: #### C BC, BMP ####[place] [id number] [facility] Automated eosinophil %Ordere d By: Carlton Mtz on 10-31-2022 Eosinophils/100 WBC (Bld) 4.7 % Normal . [facility] Comment on above: Performed By: #### C BC, BMP ####[address] Automated eosinophil countOr dered By: Carlton Mtz on 10-31-2022 Eosinophils (Bld) [#/Vol] 0.3 10*3/uL Normal 0.0-0.45 [facility] Comment on above: Performed By: #### C BC, BMP ####[address] Automated monocyte %Ordered By: Carlton Mtz on 10-31-2022 Monocytes/100 WBC (Bld) 13.8 % Normal . [facility] Comment on above: Performed By: #### C BC, BMP ####[address] Automated neutrophil %Ordere d By: Carlton Mtz on 10-31-2022 Neutrophils/100 WBC (Bld) 61.2 % Normal . [facility] Comment on above: Performed By: #### C BC, BMP ####[place] [id number] [facility] Basic Metabolic Panelon 10-12 Creatinine Clr Calc Pharmacy 14.57 Normal [facility] Comment on above: Result Comment: PERF ORMED BY:[address] [place], [place] [phone] MEDICAL DIRECTORRAMEZ LARSON M.D. Performed By: #### C BC, BMP ####[place] [id number] [facility] GFR/1.73 sq M.predicted MDRD (S/P/Bld) [Vol rate/Area] 16.510 mL/min/{1.73_m2} Normal [facility] Comment on above: Performed By: #### C REBECCA, CHELSI ####[place] [address] [place] [address] [facility] Calcium [Mass/volume] in Ser um or PlasmaOrdered By: Carlton Mtz on 10-31-2022 Calcium [Mass/Vol] 9.3 mg/dL Normal 8.6-10.3 [facility] Comment on above: Performed By: #### C REBECCA, BMP ####[place] [address] [place] [address] [facility] Capillary blood glucose eugenie urement by glucometer (mass/volume)Ordered By: Carlton Mtz on 10-31-2022 Glucose [Mass/Vol] 223 mg/dL Normal [facility] Comment on above: Random Glucose Refer ence Range is dependent on time and content of last meal. Glucose of more than 200 mg/dL in a nonstressed, ambulatory subject supports the diagnosis of Diabetes Mellitus. Result Comment: [place] Glucose Reference Range is dependent on time and content of last meal. Glucose of more than 200 mg/dL in a nonstressed, ambulatory subject supports the diagnosis of Diabetes Mellitus.PERFORMED BY:[place] [address] [address] [place], [place] [phone] MEDICAL DIRECTORRAMEZ LARSON M.D. Performed By: #### G [place] ####Point of Care testing, Carbon dioxide, total [Moles /volume] in Serum or PlasmaOrdered By: Carlton Mtz on 10-31-2022 CO2 [Moles/Vol] 29.9 mmol/L Normal 21.0-31.0 [facility] Comment on above: Performed By: #### C REBECCA, BMP ####[place] [address] [place] [address] [facility] Chloride [Moles/volume] in S steffanie or PlasmaOrdered By: Carlton Mtz on 10-31-2022 Chloride [Moles/Vol] 91 mmol/L Low 98-107 [facility] Comment on above: Performed By: #### C REBECCA, BMP ####[place] [address] Complete Blood Count Auto Di ffon 10-31-2022 Mean Corpuscular HGB Conc 32.3 g/dL Normal 32.0-35.0 [facility] Comment on above: Performed By: #### C REBECCA, BMP ####[address] NRBC% 0.0 /100{WBC} Normal 0-0.5 [facility] Comment on above: Performed By: #### C REBECCA, BMP ####[address] Creatinine [Mass/volume] in Serum or PlasmaOrdered By: Carlton Mtz on 10-31-2022 Creatinine [Mass/Vol] 2.88 mg/dL Significan t change up 0.60-1.20 [facility] Comment on above: Delta: 5.32 on 10/30 Performed By: #### C REBECCA, BMP ####[address] Erythrocyte distribution wid th [Ratio] by Automated countOrdered By: Carlton Mtz on 10-31-2022 Erythrocyte distribution width (RBC) [Ratio] 16.4 % High 11.9-15.3 [facility] Comment on above: Performed By: #### C REBECCA, BMP ####[address] Erythrocytes [#/volume] in B lood by Automated countOrdered By: Carlton Mtz on 10-31-2022 RBC (Bld) [#/Vol] 3.25 10*6/uL Low 3.60-5.00 [facility] Comment on above: Performed By: #### C REBECCA, BMP ####[place] [id number] [facility] Glucose Poct Glucometerson 0 10-31-2022 Glucose [Mass/Vol] 134 mg/dL Normal [facility] Comment on above: Result Comment: [place] om Glucose Reference Range is dependent on time and content of last meal. Glucose of more than 200 mg/dL in a nonstressed, ambulatory subject supports the diagnosis of Diabetes Mellitus.PERFORMED BY:[address] [place], [place] [phone] MEDICAL DIRECTORRAMEZ LARSON M.D. Performed By: #### G [place] ####Point of Care testing, Glucose [Mass/volume] in Ser um or PlasmaOrdered By: Carlton Mtz on 10-31-2022 Glucose [Mass/Vol] 147 mg/dL High 70-100 [facility] Comment on above: ADA recommended refe rence rangeRandom Glucose Reference Range is dependent on time and content of last meal. Glucose of more than 200 mg/dL in a nonstressed, ambulatory subject supports the diagnosis of Diabetes Mellitus. Result Comment: [place] om Glucose Reference Range is dependent on time and content of last meal. Glucose of more than 200 mg/dL in a nonstressed, ambulatory subject supports the diagnosis of Diabetes Mellitus. ADA recommended reference range Performed By: #### C REBECCA, BMP ####[place] [address] [place] [id number] [facility] Hematocrit [Volume Fraction] of Blood by Automated countOrdered By: Carlton Mtz on 10-31-2022 Hematocrit (Bld) [Volume fraction] 30.1 % Low 34.0-46.4 [facility] Comment on above: Performed By: #### C REBECCA, BMP ####[address] [address] [facility] Hemoglobin [Mass/volume] in BloodOrdered By: Carlton Mtz on 10-31-2022 Hemoglobin (Bld) [Mass/Vol] 9.7 g/dL Low 11.8-15.4 [facility] Comment on above: Performed By: #### C BC, BMP ####[address] [address] [facility] Leukocytes [#/volume] correc tr for nucleated erythrocytes in Blood by Automated counOrdered By: Carlton Mtz on 10-31-2022 WBC corrected for nucl RBC Auto (Bld) [#/Vol] 5.4 10*3/uL 3.8-11.6 [facility] Leukocytes [#/volume] in Blo od by Automated countOrdered By: Carlton Mtz on 10-31-2022 WBC (Bld) [#/Vol] 5.4 10*3/uL Normal 3.8-11.6 [facility] Comment on above: Performed By: #### C BC, BMP ####[address] [address] [facility] Lymphocytes [#/volume] in Bl ood by Automated countOrdered By: Carlton Mtz on 10-31-2022 Lymphocytes (Bld) [#/Vol] 1.1 10*3/uL Normal 1.00-4.8 [facility] Comment on above: Performed By: #### C BC, BMP ####[place] [id number] [facility] Lymphocytes/100 leukocytes i n Blood by Automated countOrdered By: Carlton Mtz on 10-31-2022 Lymphocytes/100 WBC (Bld) 19.6 % Normal . [facility] Comment on above: Performed By: #### C BC, BMP ####[address] [address] [facility] MCH [Entitic mass] by Automa tr countOrdered By: Carlton Mtz on 10-31-2022 MCH (RBC) [Entitic mass] 29.8 pg Normal 24.7-34.3 [facility] Comment on above: Performed By: #### C BC, BMP ####[place] [id number] [facility] MCHC Auto (RBC) [Mass/Vol]Or dered By: Carlton Mtz on 10-31-2022 MCHC (RBC) [Mass/Vol] 32.3 g/dL 32.0-35.0 [facility] MCV [Entitic volume] by Auto mated countOrdered By: Carlton Mtz on 10-31-2022 MCV (RBC) [Entitic vol] 92.4 fL Normal 80-[address] [facility] Comment on above: Performed By: #### C REBECCA, BMP ####[place] [address] Neutrophils [#/volume] in Bl ood by Automated countOrdered By: Carlton Mtz on 10-31-2022 Neutrophils (Bld) [#/Vol] 3.3 10*3/uL Normal 1.8-7.7 [facility] Comment on above: Performed By: #### C REBECCA, BMP ####[address] No Panel InformationOrdered By: Carlton Mtz on 10-31-2022 Estimated GFR (CKD-EPI) 16.510 mL/Min [facility] Creatinine Clearance (Chem 14.57 [facility] Nucleated erythrocytes [Pres ence] in Blood by Automated countOrdered By: Carlton Mtz on 10-31-2022 Nucleated RBC Auto Ql (Bld) 0.0 /100{WBC} 0-0.5 [facility] Platelet mean volume [Entiti c volume] in Blood by Automated countOrdered By: Carlton Mtz on 10-31-2022 Platelet mean volume (Bld) [Entitic vol] 7.6 fL Normal 6.3-10.7 [facility] Comment on above: Performed By: #### C REBECCA, BMP ####[place] [address] [place] [id number] [facility] Platelets [#/volume] in Bloo d by Automated countOrdered By: Carlton Mtz on 10-31-2022 Platelets (Bld) [#/Vol] 300 10*3/uL Normal 150-450 [facility] Comment on above: Performed By: #### C REBECCA, BMP ####[address] Potassium [Moles/volume] in Serum or PlasmaOrdered By: Carlton Mtz on 10-31-2022 Potassium [Moles/Vol] 3.9 mmol/L Normal 3.5-5.1 [facility] Comment on above: Performed By: #### C REBECCA BMP ####[place] [id number] [facility] Serum or plasma anion gap de terminationOrdered By: Carlton Mtz on 10-31-2022 Anion gap [Moles/Vol] 13.0 mmol/L Normal 6.0-15.0 [facility] Comment on above: Performed By: #### C REBECCA BMP ####[address] Sodium [Moles/volume] in Ser um or PlasmaOrdered By: Carlton Mtz on 10-31-2022 Sodium [Moles/Vol] 130 mmol/L Low 136-145 [facility] Comment on above: Performed By: #### C REBECCA BMP ####[place] [id number] [facility] Urea nitrogen [Mass/volume] in Serum or PlasmaOrdered By: Carlton Mtz on 10-31-2022 Urea nitrogen [Mass/Vol] 32 mg/dL Significant change up 09-03 [facility] Comment on above: Delta: 72 on 3 Performed By: #### C REBECCA BMP ####[place] [id number] [facility] Basic Metabolic Panelon 10-12 Anion gap [Moles/Vol] 20.5 mmol/L High 6.0-15.0 [facility] e [facility] Comment on above: Performed By: #### C BC BMP, PHOS, MG ####[place] [id number] [facility] Calcium [Mass/Vol] 10.0 mg/dL Normal 8.6-10.3 [facility] Comment on above: Performed By: #### C BC, BMP, PHOS, MG ####[place] [address] Chloride [Moles/Vol] 89 mmol/L Low 98-107 [facility] Comment on above: Performed By: #### C BC, BMP, PHOS, MG ####[address] CO2 [Moles/Vol] 24.4 mmol/L Normal 21.0-31.0 [facility] Comment on above: Performed By: #### C BC, BMP, PHOS, MG ####[address] Creatinine [Mass/Vol] 5.32 mg/dL Significan t change up 0.60-1.20 [facility] Comment on above: Performed By: #### C BC, BMP, PHOS, MG ####[address] Creatinine Clr Calc Pharmacy 7.89 Normal [facility] Comment on above: Performed By: #### C BC, BMP, PHOS, MG ####[address] GFR/1.73 sq M.predicted MDRD (S/P/Bld) [Vol rate/Area] 7.905 mL/min/{1.73_m2} Normal [facility] Comment on above: Performed By: #### C BC, BMP, PHOS, MG ####[address] Glucose [Mass/Vol] 191 mg/dL High 70-100 [facility] Comment on above: Result Comment: [place] Glucose Reference Range is dependent on time and content of last meal. Glucose of more than 200 mg/dL in a nonstressed, ambulatory subject supports the diagnosis of Diabetes Mellitus. ADA recommended reference range Performed By: #### C BC, BMP, PHOS, MG ####[address] Potassium [Moles/Vol] 3.9 mmol/L Normal 3.5-5.1 [facility] Comment on above: Performed By: #### C BC, BMP, PHOS, MG ####[address] Sodium [Moles/Vol] 130 mmol/L Low 136-145 [facility] Comment on above: Performed By: #### C BC, BMP, PHOS, MG ####[address] Urea nitrogen [Mass/Vol] 72 mg/dL High 7-25 [facility] Comment on above: Performed By: #### C BC, BMP, PHOS, MG ####[address] Complete Blood Count Auto Di ffon 10-30-2022 Basophils (Bld) [#/Vol] 0.1 10*3/uL Normal 0.0-0.2 [facility] Comment on above: Result Comment: PERF ORMED BY:[address] [place], [place] [phone] MEDICAL DIRECTORRAMEZ LARSON M.D. Performed By: #### C BC, BMP, PHOS, MG ####[address] Basophils/100 WBC (Bld) 0.8 % Normal . [facility] Comment on above: Performed By: #### C BC, BMP, PHOS, MG ####[address] Eosinophils (Bld) [#/Vol] 0.3 10*3/uL Normal 0.0-0.45 [facility] Comment on above: Performed By: #### C BC, BMP, PHOS, MG ####[address] Eosinophils/100 WBC (Bld) 3.5 % Normal . [facility] Comment on above: Performed By: #### C BC, BMP, PHOS, MG ####[address] Erythrocyte distribution width (RBC) [Ratio] 16.7 % High 11.9-15.3 [facility] Comment on above: Performed By: #### C BC, BMP, PHOS, MG ####[address] Hematocrit (Bld) [Volume fraction] 28.4 % Low 34.0-46.4 [facility] Comment on above: Performed By: #### C BC, BMP, PHOS, MG ####[address] Hemoglobin (Bld) [Mass/Vol] 9.2 g/dL Low 11.8-15.4 [facility] Comment on above: Performed By: #### C BC, BMP, PHOS, MG ####[address] Lymphocytes (Bld) [#/Vol] 1.1 10*3/uL Normal 1.00-4.8 [facility] Comment on above: Performed By: #### C BC, BMP, PHOS, MG ####[address] Lymphocytes/100 WBC (Bld) 16.2 % Normal . [facility] Comment on above: Performed By: #### C BC, BMP, PHOS, MG ####[address] MCH (RBC) [Entitic mass] 30.3 pg Normal 24.7-34.3 [facility] Comment on above: Performed By: #### C BC, BMP, PHOS, MG ####[address] MCV (RBC) [Entitic vol] 92.9 fL Normal 80-100 [facility] Comment on above: Performed By: #### C BC, BMP, PHOS, MG ####[address] Mean Corpuscular HGB Conc 32.6 g/dL Normal 32.0-35.0 [facility] Comment on above: Performed By: #### C BC, BMP, PHOS, MG ####[address] Monocytes (Bld) [#/Vol] 1.1 10*3/uL High 0.0-0.8 [facility] Comment on above: Performed By: #### C BC, BMP, PHOS, MG ####[address] Monocytes/100 WBC (Bld) 15.5 % Normal . [facility] Comment on above: Performed By: #### C BC, BMP, PHOS, MG ####[address] Neutrophils (Bld) [#/Vol] 4.5 10*3/uL Normal 1.8-7.7 [facility] Comment on above: Performed By: #### C BC, BMP, PHOS, MG ####[address] Neutrophils/100 WBC (Bld) 64.0 % Normal . [facility] Comment on above: Performed By: #### C BC, BMP, PHOS, MG ####[address] NRBC% 0.0 /100{WBC} Normal 0-0.5 [facility] Comment on above: Performed By: #### C BC, BMP, PHOS, MG ####[address] Platelet mean volume (Bld) [Entitic vol] 7.5 fL Normal 6.3-10.7 [facility] Comment on above: Performed By: #### C BC, BMP, PHOS, MG ####[address] Platelets (Bld) [#/Vol] 312 10*3/uL Normal 150-450 [facility] Comment on above: Performed By: #### C BC, BMP, PHOS, MG ####[address] RBC (Bld) [#/Vol] 3.05 10*6/uL Low 3.60-5.00 [facility] Comment on above: Performed By: #### C BC, BMP, PHOS, MG ####[place] [id number] [facility] WBC (Bld) [#/Vol] 7.1 10*3/uL Normal 3.8-11.6 [facility] Comment on above: Performed By: #### C BC, BMP, PHOS, MG ####[place] [id number] [facility] ECG 12 lead ECGon 10-30-2022 ECG 12 lead ECG Normal [facility] Glucose Poct Glucometerson 0 10-30-2022 Commemt1 Glu2: Cleaned Meter Normal [facility] Comment on above: Result Comment: PERF ORMED BY:[address] [place], [place] [phone] MEDICAL DIRECTORRAMEZ LARSON M.D. Performed By: #### G LULS ####Point of Care testing, Glucose [Mass/Vol] 181 mg/dL Normal [facility] Comment on above: Result Comment: [place] Glucose Reference Range is dependent on time and content of last meal. Glucose of more than 200 mg/dL in a nonstressed, ambulatory subject supports the diagnosis of Diabetes Mellitus. Performed By: #### G LULS ####Point of Care testing, Glucose [Mass/Vol] 139 mg/dL Normal [facility] Comment on above: Result Comment: [place] Glucose Reference Range is dependent on time and content of last meal. Glucose of more than 200 mg/dL in a nonstressed, ambulatory subject supports the diagnosis of Diabetes Mellitus.PERFORMED BY:[address] [place], [place] [phone] MEDICAL DIRECTORRAMEZ LARSON M.D. Performed By: #### G LULS ####Point of Care testing, Glucose [Mass/Vol] 172 mg/dL Normal [facility] Comment on above: Result Comment: [facility] Glucose Reference Range is dependent on time and content of last meal. Glucose of more than 200 mg/dL in a nonstressed, ambulatory subject supports the diagnosis of Diabetes Mellitus.PERFORMED BY:[place] [address] [place], [place] [phone] MEDICAL DIRECTORRAMEZ LARSON M.D. Performed By: #### G LUANNITA ####Point of Care testing, Glucose [Mass/Vol] 201 mg/dL Normal [facility] Comment on above: Result Comment: [facility] Glucose Reference Range is dependent on time and content of last meal. Glucose of more than 200 mg/dL in a nonstressed, ambulatory subject supports the diagnosis of Diabetes Mellitus.PERFORMED BY:[address] [place], [place] [phone] MEDICAL DIRECTORRAMEZ LARSON M.D. Performed By: #### G DAVID ####Point of Care testing, Magnesium [Mass/volume] in S steffanie or PlasmaOrdered By: Malika Arreaga on 10-30-2022 Magnesium [Mass/Vol] 2.4 mg/dL Normal 1.9-2.7 [facility] Comment on above: Result Comment: PERF ORMED BY:[address] [place], [place] [phone] MEDICAL DIRECTORRAMEZ LARSON M.D. Performed By: #### C BC, BMP, PHOS, MG ####[address] [address] [facility] No Panel InformationOrdered By: Carlton Mtz on 10-30-2022 Bedside Glucose Comment Glu2: cleaned meter [facility] Phosphate [Mass/volume] in S steffanie or PlasmaOrdered By: Malika Arreaga on 10-30-2022 Phosphate [Mass/Vol] 6.4 mg/dL Normal 3.7-7.2 [facility] Comment on above: Performed By: #### C BC, BMP, PHOS, MG ####[address] [address] [facility] Troponin I High Sensitivityo n 10-30-2022 Troponin I High Sensitivity 29.9 pg/mL High 0.0-15.0 [facility] Comment on above: Result Comment: PERF ORMED BY:[facility] [place], [place] [phone] MEDICAL DIRECTORRAMEZ LARSON M.D. Performed By: #### H S TROP ####[address] [place] [address] [facility] Troponin I.cardiac [Mass/vol ume] in Serum or Plasma by Detection limit <= 0.01 ng/Ordered By: Gary Almaguer on 10-30-2022 Troponin I.cardiac DL <= 0.01 ng/mL [Mass/Vol] 29.9 pg/mL 0.0-15.0 [facility] XR chest 1V portableon 10-30 XR chest 1V portable Normal [facility] XR shoulder LT min 2V*on XR shoulder LT min 2V* Normal [facility] Activated partial thrombopla stin time (aPTT) in platelet poor plasma by coagulation aOrdered By: Azar Palmer on 10-29-2022 aPTT Coag (PPP) [Time] 30.5 s 25.1-36.5 [facility] Comment on above: A hematocrit value g reater than 55% may lead to inaccurate results in coagulation testing. Patients having hematocrit values >55% require a special collection tube for coagulation studies. Please contact the laboratory at [phone] for redraw instructions. Alanine aminotransferase [En zymatic activity/volume] in Serum or PlasmaOrdered By: Azar Palmer on 10-29-2022 ALT [Catalytic activity/Vol] 19 U/L Normal 7-52 [facility] Comment on above: Performed By: #### P TT, BNP, PT, CBC, CK, CMP, HS TROP ####[address] [place] [address] [facility] Albumin [Mass/volume] in Ser um or Plasma by Bromocresol green (BCG) dye binding methoOrdered By: Azar Palmer on 10-29-2022 Albumin BCG dye [Mass/Vol] 3.5 g/dL 3.5-5.7 [facility] Alkaline phosphatase [Enzyma tic activity/volume] in Serum or PlasmaOrdered By: Azar Palmer on 10-29-2022 ALP [Catalytic activity/Vol] 135 U/L High 34-104 [facility] Comment on above: Performed By: #### P TT, BNP, PT, CBC, CK, CMP, HS TROP ####[address] Aspartate aminotransferase [ Enzymatic activity/volume] in Serum or PlasmaOrdered By: Azar Palemr on 10-29-2022 AST [Catalytic activity/Vol] 19 U/L Normal 13-39 [facility] Comment on above: Performed By: #### P TT, BNP, PT, CBC, CK, CMP, HS TROP ####[address] Automated basophil %Ordered By: Azar Palmer on 10-29-2022 Basophils/100 WBC (Bld) 0.5 % Normal . [facility] Comment on above: Performed By: #### P TT, BNP, PT, CBC, CK, CMP, HS TROP ####[address] Automated basophil countOrde red By: Azar Palmer on 10-29-2022 Basophils (Bld) [#/Vol] 0.0 10*3/uL Normal 0.0-0.2 [facility] Comment on above: Result Comment: PERF ORMED BY:[address] [place], [place] [phone] MEDICAL DIRECTORRAMEZ LARSON M.D. Performed By: #### P TT, BNP, PT, CBC, CK, CMP, HS TROP ####[place] [id number] [facility] Automated blood monocyte cou ntOrdered By: Azar Palmer on 10-29-2022 Monocytes (Bld) [#/Vol] 0.9 10*3/uL High 0.0-0.8 [facility] Comment on above: Performed By: #### P TT, BNP, PT, CBC, CK, CMP, HS TROP ####[place] [address] Automated eosinophil %Ordere d By: Azar Palmer on 10-29-2022 Eosinophils/100 WBC (Bld) 3.5 % Normal . [facility] Comment on above: Performed By: #### P TT, BNP, PT, CBC, CK, CMP, HS TROP ####[address] Automated eosinophil countOr dered By: Azar Palmer on 10-29-2022 Eosinophils (Bld) [#/Vol] 0.2 10*3/uL Normal 0.0-0.45 [facility] Comment on above: Performed By: #### P TT, BNP, PT, CBC, CK, CMP, HS TROP ####[address] Automated monocyte %Ordered By: Azar Palmer on 10-29-2022 Monocytes/100 WBC (Bld) 13.3 % Normal . [facility] Comment on above: Performed By: #### P TT, BNP, PT, CBC, CK, CMP, HS TROP ####[address] Automated neutrophil %Ordere d By: Azar Palmer on 10-29-2022 Neutrophils/100 WBC (Bld) 68.4 % Normal . [facility] Comment on above: Performed By: #### P TT, BNP, PT, CBC, CK, CMP, HS TROP ####[address] BNP ser/plasOrdered By: Lincoln Palmer on 10-29-2022 Natriuretic peptide B (Bld) [Mass/Vol] 806.0 pg/mL High 5-100 [facility] Comment on above: Result Comment: PERF ORMED BY:[address] [place], [place] [phone] MEDICAL DIRECTORRAMEZ LARSON M.D. Performed By: #### P TT, BNP, PT, CBC, CK, CMP, HS TROP ####[address] Bilirubin.total [Mass/volume ] in Serum or PlasmaOrdered By: Azar Palmer on 10-29-2022 Bilirubin [Mass/Vol] 0.4 mg/dL Normal 0.3-1.0 [facility] Comment on above: Performed By: #### P TT, BNP, PT, CBC, CK, CMP, HS TROP ####[place] [id number] [facility] CT cervical spine wo conon 0 10-29-2022 CT cervical spine wo con Normal [facility] CT head/brain wo conon 10-29 CT head/brain wo con Normal [facility] Calcium [Mass/volume] in Ser um or PlasmaOrdered By: Azar Palmer on 10-29-2022 Calcium [Mass/Vol] 10.2 mg/dL Normal 8.6-10.3 [facility] Comment on above: Performed By: #### P TT, BNP, PT, CBC, CK, CMP, HS TROP ####[address] Carbon dioxide, total [Moles /volume] in Serum or PlasmaOrdered By: Azar Palmer on 10-29-2022 CO2 [Moles/Vol] 23.3 mmol/L Normal 21.0-31.0 [facility] Comment on above: Performed By: #### P TT, BNP, PT, CBC, CK, CMP, HS TROP ####[address] Chloride [Moles/volume] in S steffanie or PlasmaOrdered By: Azar Palmer on 10-29-2022 Chloride [Moles/Vol] 90 mmol/L Low 98-107 [facility] Comment on above: Performed By: #### P TT, BNP, PT, CBC, CK, CMP, HS TROP ####[address] Complete Blood Count Auto Di ffon 10-29-2022 Mean Corpuscular HGB Conc 32.8 g/dL Normal 32.0-35.0 [facility] Comment on above: Performed By: #### P TT, BNP, PT, CBC, CK, CMP, HS TROP ####[place] [id number] [facility] Monocytes/100 WBC (Bld) 24.74 % High 0.00-20.00 [facility] Comment on above: Result Comment: For adults in ED, MDW > 20.0 may be associated with a higher risk of sepsis during the first 12 hrs of hospital admission Performed By: #### P TT, BNP, PT, CBC, CK, CMP, HS TROP ####[address] NRBC% 0.1 /100{WBC} Normal 0-0.5 [facility] Comment on above: Performed By: #### P TT, BNP, PT, CBC, CK, CMP, HS TROP ####[address] Comprehensive Metabolic Pane eliseo 10-29-2022 Albumin [Mass/Vol] 3.5 g/dL Normal 3.5-5.7 [facility] Comment on above: Performed By: #### P TT, BNP, PT, CBC, CK, CMP, HS TROP ####[address] Creatinine Clr Calc Pharmacy 8.89 Normal [facility] Comment on above: Result Comment: PERF ORMED BY:[address] [place], [place] [phone] MEDICAL MAJOR LARSON M.D. Performed By: #### P TT, BNP, PT, CBC, CK, CMP, HS TROP ####[place] [id number] [facility] GFR/1.73 sq M.predicted MDRD (S/P/Bld) [Vol rate/Area] 9.126 mL/min/{1.73_m2} Normal [facility] Comment on above: Performed By: #### P TT, BNP, PT, CBC, CK, CMP, HS TROP ####[address] Creatine kinase [Enzymatic a ctivity/volume] in Serum or PlasmaOrdered By: Azar Palmer on 10-29-2022 CK [Catalytic activity/Vol] 29 U/L Low 30-223 [facility] Comment on above: Performed By: #### P TT, BNP, PT, CBC, CK, CMP, HS TROP ####[address] [place] [address] [facility] Creatinine [Mass/volume] in Serum or PlasmaOrdered By: Azar Palmer on 10-29-2022 Creatinine [Mass/Vol] 4.72 mg/dL High 0.60-1.20 [facility] Comment on above: Performed By: #### P TT, BNP, PT, CBC, CK, CMP, HS TROP ####[place] [address] [place] [id number] [facility] ECG 12 lead ECGon 10-29-2022 ECG 12 lead ECG Normal [facility] Erythrocyte distribution wid th [Ratio] by Automated countOrdered By: Azar Palmer on 10-29-2022 Erythrocyte distribution width (RBC) [Ratio] 17.1 % High 11.9-15.3 [facility] Comment on above: Performed By: #### P TT, BNP, PT, CBC, CK, CMP, HS TROP ####[place] [id number] [facility] Erythrocytes [#/volume] in B lood by Automated countOrdered By: Azar Palmer on 10-29-2022 RBC (Bld) [#/Vol] 3.55 10*6/uL Low 3.60-5.00 [facility] Comment on above: Performed By: #### P TT, BNP, PT, CBC, CK, CMP, HS TROP ####[place] [id number] [facility] Glucose [Mass/volume] in Ser um or PlasmaOrdered By: Azar Palmer on 10-29-2022 Glucose [Mass/Vol] 191 mg/dL High 70-100 [facility] Comment on above: ADA recommended refe rence rangeRandom Glucose Reference Range is dependent on time and content of last meal. Glucose of more than 200 mg/dL in a nonstressed, ambulatory subject supports the diagnosis of Diabetes Mellitus. Result Comment: [facility] Glucose Reference Range is dependent on time and content of last meal. Glucose of more than 200 mg/dL in a nonstressed, ambulatory subject supports the diagnosis of Diabetes Mellitus. ADA recommended reference range Performed By: #### P TT, BNP, PT, CBC, CK, CMP, HS TROP ####[place] [address] Hematocrit [Volume Fraction] of Blood by Automated countOrdered By: Azar Palmer on 10-29-2022 Hematocrit (Bld) [Volume fraction] 32.7 % Low 34.0-46.4 [facility] Comment on above: Performed By: #### P TT, BNP, PT, CBC, CK, CMP, HS TROP ####[address] Hemoglobin [Mass/volume] in BloodOrdered By: Azar Palmer on 10-29-2022 Hemoglobin (Bld) [Mass/Vol] 10.7 g/dL Low 11.8-15.4 [facility] Comment on above: Performed By: #### P TT, BNP, PT, CBC, CK, CMP, HS TROP ####[address] INR in Platelet poor plasma by Coagulation assayOrdered By: Azar Palmer on 10-29-2022 INR Coag (PPP) [Relative time] 1.1 {INR} Normal [facility] Comment on above: INR Therapeutic [...] - 4.5 Performed By: #### P TT, BNP, PT, CBC, CK, CMP, HS TROP ####[address] Leukocytes [#/volume] correc tr for nucleated erythrocytes in Blood by Automated counOrdered By: Azar Palmer on 10-29-2022 WBC corrected for nucl RBC Auto (Bld) [#/Vol] 6.7 10*3/uL 3.8-11.6 [facility] Leukocytes [#/volume] in Blo od by Automated countOrdered By: Azar Palmer on 10-29-2022 WBC (Bld) [#/Vol] 6.7 10*3/uL Normal 3.8-11.6 [facility] Comment on above: Performed By: #### P TT, BNP, PT, CBC, CK, CMP, HS TROP ####[address] Lymphocytes [#/volume] in Bl ood by Automated countOrdered By: Azar Palmer on 10-29-2022 Lymphocytes (Bld) [#/Vol] 1.0 10*3/uL Normal 1.00-4.8 [facility] Comment on above: Performed By: #### P TT, BNP, PT, CBC, CK, CMP, HS TROP ####[address] Lymphocytes/100 leukocytes i n Blood by Automated countOrdered By: Azar Palmer on 10-29-2022 Lymphocytes/100 WBC (Bld) 14.3 % Normal . [facility] Comment on above: Performed By: #### P TT, BNP, PT, CBC, CK, CMP, HS TROP ####[place] [id number] [facility] MCH [Entitic mass] by Automa tr countOrdered By: Azar Palmer on 10-29-2022 MCH (RBC) [Entitic mass] 30.2 pg Normal 24.7-34.3 [facility] Comment on above: Performed By: #### P TT, BNP, PT, CBC, CK, CMP, HS TROP ####[address] [place] [address] [place] MCHC Auto (RBC) [Mass/Vol]Or dered By: Azar Palmer on 10-29-2022 MCHC (RBC) [Mass/Vol] 32.8 g/dL 32.0-35.0 [facility] MCV [Entitic volume] by Auto mated countOrdered By: Azar Palmer on 10-29-2022 MCV (RBC) [Entitic vol] 92.1 fL Normal 80-[address] [facility] Comment on above: Performed By: #### P TT, BNP, PT, CBC, CK, CMP, HS TROP ####[address] Monocyte distribution width [Entitic volume] in Blood by AutomatedOrdered By: Azar Palmer on 10-29-2022 Monocyte distribution width Auto (Bld) [Entitic vol] 24.74 % 0.00-20.00 [facility] Comment on above: For adults in ED, MD W > 20.0 may be associated with a higher risk of sepsis during the first 12 hrs of hospital admission Neutrophils [#/volume] in Bl ood by Automated countOrdered By: Azar Palmer on 10-29-2022 Neutrophils (Bld) [#/Vol] 4.6 10*3/uL Normal 1.8-7.7 [facility] Comment on above: Performed By: #### P TT, BNP, PT, CBC, CK, CMP, HS TROP ####[address] No Panel InformationOrdered By: Azar Palmer on 10-29-2022 Estimated GFR (CKD-EPI) 9.126 mL/Min [facility] Creatinine Clearance (Chem 8.89 [facility] Nucleated erythrocytes [Pres ence] in Blood by Automated countOrdered By: Azar Palmer on 10-29-2022 Nucleated RBC Auto Ql (Bld) 0.1 /100{WBC} 0-0.5 [facility] Partial Thromboplastin Timeo n 10-29-2022 aPTT Coag (Bld) [Time] 30.5 s Normal 25.1-36.5 [facility] Comment on above: Result Comment: A he matocrit value greater than 55% may lead to inaccurate results in coagulation testing. Patients having hematocrit values >55% require a special collection tube for coagulation studies. Please contact the laboratory at [phone] for redraw instructions.PERFORMED BY:[address] [place], [place] [phone] MEDICAL DIRECTORRAMEZ LARSON M.D. Performed By: #### P TT, BNP, PT, CBC, CK, CMP, HS TROP ####[address] [address] [facility] Platelet mean volume [Entiti c volume] in Blood by Automated countOrdered By: Azar Palmer on 10-29-2022 Platelet mean volume (Bld) [Entitic vol] 7.7 fL Normal 6.3-10.7 [facility] Comment on above: Performed By: #### P TT, BNP, PT, CBC, CK, CMP, HS TROP ####[address] [address] [facility] Platelets [#/volume] in Bloo d by Automated countOrdered By: Azar Palmer on 10-29-2022 Platelets (Bld) [#/Vol] 371 10*3/uL Normal 150-450 [facility] Comment on above: Performed By: #### P TT, BNP, PT, CBC, CK, CMP, HS TROP ####[address] [address] [facility] Potassium [Moles/volume] in Serum or PlasmaOrdered By: Azar Palmer on 10-29-2022 Potassium [Moles/Vol] 3.7 mmol/L Normal 3.5-5.1 [facility] Comment on above: Performed By: #### P TT, BNP, PT, CBC, CK, CMP, HS TROP ####[address] [address] [facility] Protein [Mass/volume] in Ser um or PlasmaOrdered By: Azar Palmer on 10-29-2022 Protein [Mass/Vol] 7.6 g/dL Normal 6.4-8.9 [facility] Comment on above: Performed By: #### P TT, BNP, PT, CBC, CK, CMP, HS TROP ####[address] Prothrombin time (PT)Ordered By: Azar Palmer on 10-29-2022 PT Coag (PPP) [Time] 12.5 s Normal 9.0-12.9 [facility] Comment on above: A hematocrit value g reater than 55% may lead to inaccurate results in coagulation testing. Patients having hematocrit values >55% require a special collection tube for coagulation studies. Please contact the laboratory at [phone] for redraw instructions. Result Comment: A he matocrit value greater than 55% may lead to inaccurate results in coagulation testing. Patients having hematocrit values >55% require a special collection tube for coagulation studies. Please contact the laboratory at [phone] for redraw instructions. Performed By: #### P TT, BNP, PT, CBC, CK, CMP, HS TROP ####[address] Serum globulin measurement b y calculation (mass/volume)Ordered By: Azar Palmer on 10-29-2022 Globulin (S) [Mass/Vol] 4.1 g/dL Normal [facility] Comment on above: Performed By: #### P TT, BNP, PT, CBC, CK, CMP, HS TROP ####[address] Serum or plasma albumin/glob ulin mass ratioOrdered By: Azar Palmer on 10-29-2022 Albumin/Globulin [Mass ratio] 0.9 {ratio} Normal [facility] Comment on above: Performed By: #### P TT, BNP, PT, CBC, CK, CMP, HS TROP ####[address] Serum or plasma anion gap de terminationOrdered By: Azar Palmer on 10-29-2022 Anion gap [Moles/Vol] 17.4 mmol/L High 6.0-15.0 [facility] Comment on above: Performed By: #### P TT, BNP, PT, CBC, CK, CMP, HS TROP ####[address] [address] [facility] Sodium [Moles/volume] in Ser um or PlasmaOrdered By: Azar Palmer on 10-29-2022 Sodium [Moles/Vol] 127 mmol/L Low 136-145 [facility] Comment on above: Performed By: #### P TT, BNP, PT, CBC, CK, CMP, HS TROP ####[address] [address] [facility] Troponin I High Sensitivityo n 10-29-2022 Troponin I High Sensitivity 33.1 pg/mL High 0.0-15.0 [facility] Comment on above: Result Comment: PERF ORMED BY:[address] [place], [place] [phone] MEDICAL DIRECTORRAMEZ LARSON M.D. Performed By: #### P TT, BNP, PT, CBC, CK, CMP, HS TROP ####[address] [address] [facility] Troponin I.cardiac [Mass/vol ume] in Serum or Plasma by Detection limit <= 0.01 ng/Ordered By: Azar Palmer on 10-29-2022 Troponin I.cardiac DL <= 0.01 ng/mL [Mass/Vol] 33.1 pg/mL 0.0-15.0 [facility] Urea nitrogen [Mass/volume] in Serum or PlasmaOrdered By: Azar Palmer on 10-29-2022 Urea nitrogen [Mass/Vol] 63 mg/dL High 7-25 [facility] Comment on above: Performed By: #### P TT, BNP, PT, CBC, CK, CMP, HS TROP ####[address] [address] [facility] MG MAMM SCREEN TRI W CADon 0 05-31-2022 MG MAMM SCREEN TRI W CAD Normal [facility] Albumin [Mass/volume] in Ser um or Plasma by Bromocresol green (BCG) dye binding methoOrdered By: Narinder Toussaint on 05-20-2022 Albumin BCG dye [Mass/Vol] 3.2 g/dL 3.5-5.7 [facility] Basophils Auto (Bld) [#/Vol] Ordered By: Jamal Schaefer on 05-20-2022 Basophils (Bld) [#/Vol] 0.0 10*3/uL 0.0-0.2 [facility] Basophils/100 WBC Auto (Bld) Ordered By: Jamal Schaefer on 05-20-2022 Basophils/100 WBC (Bld) 0.6 % . F [facility] Calcium [Mass/volume] in Ser um or PlasmaOrdered By: Narinder Toussaint on 05-20-2022 Calcium [Mass/Vol] 9.4 mg/dL 8.6-10.3 [facility] Carbon dioxide, total [Moles /volume] in Serum or PlasmaOrdered By: Narinder Toussaint on 05-20-2022 CO2 [Moles/Vol] 28.1 mmol/L 21.0-31.0 [facility] Chloride [Moles/volume] in S steffanie or PlasmaOrdered By: Narinder Toussaint on 05-20-2022 Chloride [Moles/Vol] 97 mmol/L 98-107 [facility] Creatinine [Mass/volume] in Serum or PlasmaOrdered By: Narinder Toussaint on 05-20-2022 Creatinine [Mass/Vol] 3.81 mg/dL 0.60-1.20 [facility] Comment on above: Delta: 2.90 on 05/19-0430 Eosinophils Auto (Bld) [#/Vo l]Ordered By: Jamal Schaefer on 05-20-2022 Eosinophils (Bld) [#/Vol] 0.5 10*3/uL 0.0-0.45 [facility] Eosinophils/100 WBC Auto (Bl d)Ordered By: Jamal Schaefer on 05-20-2022 Eosinophils/100 WBC (Bld) 6.3 % . [facility] Erythrocyte distribution wid th Auto (RBC) [Ratio]Ordered By: Jamal Schaefer on 05-20-2022 Erythrocyte distribution width (RBC) [Ratio] 18.5 % 11.9-15.3 [facility] Glucose Glucometer (BldC) [M ass/Vol]Ordered By: Teresa Pagan on 05-20-2022 Glucose [Mass/Vol] 107 mg/dL [facility] Comment on above: Random Glucose Refer ence Range is dependent on time and content of last meal. Glucose of more than 200 mg/dL in a nonstressed, ambulatory subject supports the diagnosis of Diabetes Mellitus. Glucose [Mass/volume] in Ser um or PlasmaOrdered By: Narinder Toussaint on 05-20-2022 Glucose [Mass/Vol] 103 mg/dL 70-100 [facility] Comment on above: ADA recommended refe rence rangeRandom Glucose Reference Range is dependent on time and content of last meal. Glucose of more than 200 mg/dL in a nonstressed, ambulatory subject supports the diagnosis of Diabetes Mellitus. Hematocrit Auto (Bld) [Volum e fraction]Ordered By: Jamal Schaefer on 05-20-2022 Hematocrit (Bld) [Volume fraction] 25.5 % 34.0-46.4 [facility] Hemoglobin [Mass/volume] in BloodOrdered By: Jamal Schaefer on 05-20-2022 Hemoglobin (Bld) [Mass/Vol] 8.3 g/dL 11.8-15.4 [facility] Leukocytes [#/volume] correc tr for nucleated erythrocytes in Blood by Automated counOrdered By: Jamal Schaefer on 05-20-2022 WBC corrected for nucl RBC Auto (Bld) [#/Vol] 7.7 10*3/uL 3.8-11.6 [facility] Lymphocytes Auto (Bld) [#/Vo l]Ordered By: Jamal Schaefer on 05-20-2022 Lymphocytes (Bld) [#/Vol] 1.0 10*3/uL 1.00-4.8 [facility] Lymphocytes/100 WBC Auto (Bl d)Ordered By: Jamal Schaefer on 05-20-2022 Lymphocytes/100 WBC (Bld) 12.8 % . [facility] MCH Auto (RBC) [Entitic mass ]Ordered By: Jamal Schaefer on 05-20-2022 MCH (RBC) [Entitic mass] 30.4 pg 24.7-34.3 [facility] MCHC Auto (RBC) [Mass/Vol]Or dered By: Jamal Schaefer on 05-20-2022 MCHC (RBC) [Mass/Vol] 32.8 g/dL 32.0-35.0 [facility] MCV Auto (RBC) [Entitic vol] Ordered By: Jamal Schaefer on 05-20-2022 MCV (RBC) [Entitic vol] 92.7 fL 80-[address] [facility] Monocytes Auto (Bld) [#/Vol] Ordered By: Jamal Schaefer on 05-20-2022 Monocytes (Bld) [#/Vol] 1.0 10*3/uL 0.0-0.8 [facility] Monocytes/100 WBC Auto (Bld) Ordered By: Jamal Schaefer on 05-20-2022 Monocytes/100 WBC (Bld) 13.0 % . F [facility] Neutrophils Auto (Bld) [#/Vo l]Ordered By: Jamal Schaefer on 05-20-2022 Neutrophils (Bld) [#/Vol] 5.2 10*3/uL 1.8-7.7 [facility] Neutrophils/100 WBC Auto (Bl d)Ordered By: Jamal Schaefer on 05-20-2022 Neutrophils/100 WBC (Bld) 67.3 % . [facility] No Panel InformationOrdered By: Teresa Pagan on 05-20-2022 Bedside Glucose Comment Glu2: cleaned meter [facility] No Panel InformationOrdered By: Narinder Toussaint on 05-20-2022 Estimated GFR (CKD-EPI) 11.801 mL/Min [facility] Creatinine Clearance (Chem 11.02 [facility] Nucleated erythrocytes [Pres ence] in Blood by Automated countOrdered By: Jamal Schaefer on 05-20-2022 Nucleated RBC Auto Ql (Bld) 0.0 /100{WBC} 0-0.5 [facility] Phosphate [Mass/volume] in S steffanie or PlasmaOrdered By: Narinder Toussaint on 05-20-2022 Phosphate [Mass/Vol] 4.1 mg/dL 3.7-7.2 [facility] Platelet mean volume Auto (B ld) [Entitic vol]Ordered By: Jamal Schaefer on 05-20-2022 Platelet mean volume (Bld) [Entitic vol] 7.5 fL 6.3-10.7 [facility] Platelets Auto (Bld) [#/Vol] Ordered By: Jamal Schaefer on 05-20-2022 Platelets (Bld) [#/Vol] 241 10*3/uL 150-450 [facility] Potassium [Moles/volume] in Serum or PlasmaOrdered By: Narinder Toussaint on 05-20-2022 Potassium [Moles/Vol] 3.7 mmol/L 3.5-5.1 [facility] RBC Auto (Bld) [#/Vol]Ordere d By: Jamal Schaefer on 05-20-2022 RBC (Bld) [#/Vol] 2.75 10*6/uL 3.60-5.00 [facility] Serum or plasma anion gap de terminationOrdered By: Narinder Toussaint on 05-20-2022 Anion gap [Moles/Vol] 13.6 mmol/L 6.0-15.0 [facility] Sodium [Moles/volume] in Ser um or PlasmaOrdered By: Narinder Toussaint on 05-20-2022 Sodium [Moles/Vol] 135 mmol/L 136-145 [facility] Urea nitrogen [Mass/volume] in Serum or PlasmaOrdered By: Narinder Toussaint on 05-20-2022 Urea nitrogen [Mass/Vol] 38 mg/dL 7-25 [facility] WBC Auto (Bld) [#/Vol]Ordere d By: Jamal Schaefer on 05-20-2022 WBC (Bld) [#/Vol] 7.7 10*3/uL 3.8-11.6 [facility] Troponin I.cardiac [Mass/vol ume] in Serum or Plasma by Detection limit <= 0.01 ng/Ordered By: Jamal Schaefer on 05-19-2022 Troponin I.cardiac DL <= 0.01 ng/mL [Mass/Vol] 47.8 pg/mL 0.0-15.0 [facility] Activated partial thrombopla stin time (aPTT) in platelet poor plasma by coagulation aOrdered By: Horacio Moreno on 05-17-2022 aPTT Coag (PPP) [Time] 33.0 s 25.1-36.5 [facility] Alanine aminotransferase [En zymatic activity/volume] in Serum or PlasmaOrdered By: Horacio Moreno on 05-17-2022 ALT [Catalytic activity/Vol] 19 U/L 7-52 [facility] Alkaline phosphatase [Enzyma tic activity/volume] in Serum or PlasmaOrdered By: Horacio Moreno on 05-17-2022 ALP [Catalytic activity/Vol] 146 U/L 34-104 [facility] Aspartate aminotransferase [ Enzymatic activity/volume] in Serum or PlasmaOrdered By: Horacio Moreno on 05-17-2022 AST [Catalytic activity/Vol] 19 U/L 13-39 [facility] Bilirubin.total [Mass/volume ] in Serum or PlasmaOrdered By: Horacio Moreno on 05-17-2022 Bilirubin [Mass/Vol] 0.5 mg/dL 0.3-1.0 [facility] Globulin Calc (S) [Mass/Vol] Ordered By: Horacio Moreno 05-17-2022 Globulin (S) [Mass/Vol] 3.3 g/dL F [facility] Laboratory - CoagulationOrde red By: Horacio Moreno on 05-17-2022 PT Coag (PPP) [Time] 13.3 s 9.0-12.9 [facility] Monocyte distribution width [Entitic volume] in Blood by AutomatedOrdered By: Horacio Moreno 05-17-2022 Monocyte distribution width Auto (Bld) [Entitic vol] 21.10 % 0.00-20.00 [facility] Comment on above: For adults in ED, MD W > 20.0 may be associated with a higher risk of sepsis during the first 12 hrs of hospital admission No Panel InformationOrdered By: Horacio Moreno on 05-17-2022 Stool Occult Blood (TRINITY) [facility] Platelet poor plasma interna tional normalized ratio (INR) by coagulation assay (relatOrdered By: Horacio Moreno on 05-17-2022 INR Coag (PPP) [Relative time] 1.2 {INR} [facility] Comment on above: INR Therapeutic [...] on 05-17-2022 Protein [Mass/Vol] 7.0 g/dL 6.4-8.9 [facility] Serum or plasma albumin/glob ulin mass ratioOrdered By: Horacio Moreno on 05-17-2022 Albumin/Globulin [Mass ratio] 1.1 {ratio} [facility] CT CHEST WO CONon 04-04-2022 CT CHEST WO CON Normal [facility] Creatinine and Glomerular fi ltration rate.predicted panel (S/P/Bld)Ordered By: Narinder Toussaint on 02-27-2022 Creatinine [Mass/Vol] 3.67 mg/dL 0.44-1.03 [facility] Comment on above: Delta: 3.13 on 02/26 Erythrocyte distribution wid th Auto (RBC) [Ratio]Ordered By: Narinder Toussaint on 02-27-2022 Erythrocyte distribution width (RBC) [Ratio] 15.2 % 11.9-15.3 [facility] Estimated glomerular filtrat ion rate (GFR) non- AmericanOrdered By: Narinder Toussaint on 02-27-2022 GFR/1.73 sq M.predicted among non-blacks MDRD (S/P/Bld) [Vol rate/Area] 12 mL/Min [facility] Glucose Glucometer (BldC) [M ass/Vol]Ordered By: Simone Godoy on 02-27-2022 Glucose [Mass/Vol] 115 mg/dL [facility] Comment on above: Random Glucose Refer ence Range is dependent on time and content of last meal. Glucose of more than 200 mg/dL in a nonstressed, ambulatory subject supports the diagnosis of Diabetes Mellitus. Hematocrit Auto (Bld) [Volum e fraction]Ordered By: Narinder Toussaint on 02-27-2022 Hematocrit (Bld) [Volume fraction] 21.7 % 34.0-46.4 [facility] Hemoglobin [Mass/volume] in BloodOrdered By: Narinder Toussaint on 02-27-2022 Hemoglobin (Bld) [Mass/Vol] 6.9 g/dL 11.8-15.4 [facility] Leukocytes [#/volume] correc tr for nucleated erythrocytes in Blood by Automated counOrdered By: Narinder Toussaint on 02-27-2022 WBC corrected for nucl RBC Auto (Bld) [#/Vol] 4.6 10*3/uL 3.8-11.6 [facility] MCH Auto (RBC) [Entitic mass ]Ordered By: Narinder Toussaint on 02-27-2022 MCH (RBC) [Entitic mass] 29.6 pg 24.7-34.3 [facility] MCHC Auto (RBC) [Mass/Vol]Or dered By: Narinder Toussaint on 02-27-2022 MCHC (RBC) [Mass/Vol] 31.8 g/dL 32.0-35.0 [facility] MCV Auto (RBC) [Entitic vol] Ordered By: Narinder Toussaint on 02-27-2022 MCV (RBC) [Entitic vol] 93.0 fL 80-[address] [facility] No Panel InformationOrdered By: Simone Godoy on 02-27-2022 Bedside Glucose Comment Glu2: cleaned meter [facility] No Panel InformationOrdered By: Narinder Toussaint on 02-27-2022 Estimated GFR () 15 mL/Min [facility] Comment on above: GFR estimated refere nce range: According to KDOQI guidelines, <60 ml/min/1.73m2 is sufficient to diagnose a patient with chronic kidney disease. Pharmacy Creatinine Clearance (Chem 13.28 [facility] Platelet mean volume Auto (B ld) [Entitic vol]Ordered By: Narinder Toussaint on 02-27-2022 Platelet mean volume (Bld) [Entitic vol] 8.5 fL 6.3-10.7 [facility] Platelets Auto (Bld) [#/Vol] Ordered By: Narinder Toussaint on 02-27-2022 Platelets (Bld) [#/Vol] 165 10*3/uL 150-450 [facility] RBC Auto (Bld) [#/Vol]Ordere d By: Narinder Toussaint on 02-27-2022 RBC (Bld) [#/Vol] 2.34 10*6/uL 3.60-5.00 [facility] Serum or plasma anion gap de terminationOrdered By: Narinder Toussaint on 02-27-2022 Anion gap [Moles/Vol] 14.4 mmol/L 6.0-15.0 [facility] Serum or plasma calcium eugenie urement (mass/volume)Ordered By: Narinder Toussaint on 02-27-2022 Calcium [Mass/Vol] 8.6 mg/dL 8.2-10.2 [facility] Serum or plasma chloride marciano surement (moles/volume)Ordered By: Narinder Toussaint on 02-27-2022 Chloride [Moles/Vol] 91 mmol/L 95-114 [facility] Serum or plasma glucose eugenie urement (mass/volume)Ordered By: Narinder Toussaint on 02-27-2022 Glucose [Mass/Vol] 169 mg/dL 70-100 [facility] Comment on above: ADA recommended refe rence rangeRandom Glucose Reference Range is dependent on time and content of last meal. Glucose of more than 200 mg/dL in a nonstressed, ambulatory subject supports the diagnosis of Diabetes Mellitus. Serum or plasma potassium me asurement (moles/volume)Ordered By: Narinder Toussaint on 02-27-2022 Potassium [Moles/Vol] 3.8 mmol/L 3.5-5.1 [facility] Serum or plasma sodium measu rement (moles/volume)Ordered By: Narinder Toussaint 02-27-2022 Sodium [Moles/Vol] 129 mmol/L 136-146 [facility] Serum or plasma total carbon dioxide measurement (moles/volume)Ordered By: Narinder Toussaint 02-27-2022 CO2 [Moles/Vol] 27.4 mmol/L 22.0-30.0 [facility] Serum or plasma urea nitroge n measurement (mass/volume)Ordered By: Narinder Toussaint 02-27-2022 Urea nitrogen [Mass/Vol] 51 mg/dL 9-[address] [facility] [address] biopsyOrdered By: Narinder nance on 02-24-2022 Transferrin [Mass/Vol] 129 mg/dL 180-380 [facility] Ferritin [Mass/volume] in Se rum or PlasmaOrdered By: Narinder Toussaint on 02-24-2022 Ferritin [Mass/Vol] 1276.1 ng/mL 11-306.8 [facility] Folate [Mass/volume] in Seru m or PlasmaOrdered By: Narinder Toussaint on 02-24-2022 Folate [Mass/Vol] ng/mL >5.9 [facility] Comment on above: Folate reference ran ge: >5.9 ng/mlThe WHO technical consultation on folate and vitamin [id number] has determined that folate concentrations lessthan 4 ng/ml are considered deficient. Hepatitis B virus surface Ag [Presence] in Serum or Plasma by ImmunoassayOrdered By: Narinder Toussaint on 02-24-2022 HBV surface Ag IA Ql Negative Negative [facility] Iron [Mass/volume] in Serum or PlasmaOrdered By: Narinder Toussaint on 02-24-2022 Iron [Mass/Vol] 32 ug/dL 40-150 [facility] Iron binding capacity [Mass/ volume] in Serum or PlasmaOrdered By: Narinder Toussaint 02-24-2022 Iron binding capacity [Mass/Vol] 181 ug/dL 255-450 [facility] Iron saturation [Mass Fracti on] in Serum or PlasmaOrdered By: Narinder Toussaint 02-24-2022 Iron saturation [Mass fraction] 17.7 % 20-50 [facility] Laboratory - Chemistry and C hemistry - challengeOrdered By: Narinder Toussaint on 02-24-2022 Cobalamin (Vitamin B12) [Mass/Vol] 607 pg/mL 180-914 [facility] No Panel InformationOrdered By: Narinder Toussaint on 02-24-2022 Hepatitis A IgM Antibody Negative Negative [facility] Hepatitis B Core IgM Antibody Negative Negative [facility] Hepatitis C Interpretation See comment . [facility] Comment on above: NegativeNot infected with HCV, unless recent infection issuspected or other evidence exists to indicate HCVinfection.Performed at: [facility] [id number] Director: Tyler Sprague PhD, Phone: [phone] Phosphate [Mass/volume] in S steffanie or PlasmaOrdered By: Narinder Toussaint on 02-24-2022 Phosphate [Mass/Vol] 5.8 mg/dL 2.5-4.6 [facility] Serum or plasma hepatitis C virus antibody signal/cutoff ratio by immunoassay (relatiOrdered By: Narinder Toussaint on 02-24-2022 HCV Ab Signal/Cutoff IA [Rel units/Vol] <0.1 s/co ratio 0.0-0.9 [facility] Basophils Auto (Bld) [#/Vol] Ordered By: Malika Arreaga on 02-23-2022 Basophils (Bld) [#/Vol] 0.0 10*3/uL 0.0-0.2 [facility] Basophils/100 WBC Auto (Bld) Ordered By: Malika Arreaga on 02-23-2022 Basophils/100 WBC (Bld) 0.7 % . F [facility] Eosinophils Auto (Bld) [#/Vo l]Ordered By: Malika Arreaga on 02-23-2022 Eosinophils (Bld) [#/Vol] 0.2 10*3/uL 0.0-0.45 [facility] Eosinophils/100 WBC Auto (Bl d)Ordered By: Malika Arreaga on 02-23-2022 Eosinophils/100 WBC (Bld) 4.1 % . [facility] Glucose mean value [Mass/vol ume] in Blood Estimated from glycated hemoglobinOrdered By: Malika Arreaga on 02-23-2022 Average glucose Estimated from glycated hemoglobin (Bld) [Mass/Vol] 148 mg/dL [facility] Hemoglobin A1c percentageOrd ered By: Malika Arreaga on 02-23-2022 HbA1c (Bld) [Mass fraction] 6.8 % 4.3-5.6 [facility] Comment on above: Increased risk for d iabetes: 5.7 - 6.4diabetes: >6.4glycemic control for adults with diabetes: <7.0 Lymphocytes Auto (Bld) [#/Vo l]Ordered By: Malika Arreaga on 02-23-2022 Lymphocytes (Bld) [#/Vol] 0.8 10*3/uL 1.00-4.8 [facility] Lymphocytes/100 WBC Auto (Bl d)Ordered By: Malika Arreaga on 02-23-2022 Lymphocytes/100 WBC (Bld) 15.9 % . [facility] Monocytes Auto (Bld) [#/Vol] Ordered By: Malika Arreaga on 02-23-2022 Monocytes (Bld) [#/Vol] 0.6 10*3/uL 0.0-0.8 [facility] Monocytes/100 WBC Auto (Bld) Ordered By: Malika Arreaga on 02-23-2022 Monocytes/100 WBC (Bld) 13.0 % . F [facility] Neutrophils Auto (Bld) [#/Vo l]Ordered By: Malika Arreaga on 02-23-2022 Neutrophils (Bld) [#/Vol] 3.3 10*3/uL 1.8-7.7 [facility] Neutrophils/100 WBC Auto (Bl d)Ordered By: Malika Arreaga on 02-23-2022 Neutrophils/100 WBC (Bld) 66.3 % . [facility] Nucleated erythrocytes [Pres ence] in Blood by Automated countOrdered By: Malika Arreaga on 02-23-2022 Nucleated RBC Auto Ql (Bld) 0.0 /100{WBC} 0-0.5 [facility] WBC Auto (Bld) [#/Vol]Ordere d By: Malika Arreaga on 02-23-2022 WBC (Bld) [#/Vol] 4.9 10*3/uL 3.8-11.6 [facility] Activated partial thrombopla stin time (aPTT) in platelet poor plasma by coagulation aOrdered By: Yusra Santoyo on 02-22-2022 aPTT Coag (PPP) [Time] 36.0 s 25.1-36.5 [facility] Automated erythrocytes count in urine sediment (number/area)Ordered By: Yusra Santoyo on 02-22-2022 RBC Auto (Urine sed) [#/Area] 0-1 [HPF] 0-4 [facility] Automated leukocytes count i n urine sediment (number/area)Ordered By: Yusra Santoyo on 02-22-2022 WBC Auto (Urine sed) [#/Area] 10-19 [HPF] 0-4 [facility] Bacterial blood cultureOrder ed By: Yusra Santoyo on 02-22-2022 Bacteria identified Cx Nom (Bld) NO GROWTH 5 DAYS [facility] Bacteria identified Cx Nom (Bld) NO GROWTH 5 DAYS [facility] Basophils Auto (Bld) [#/Vol] Ordered By: Yusra Santoyo on 02-22-2022 Basophils (Bld) [#/Vol] 0.0 10*3/uL 0.0-0.2 [facility] Basophils/100 WBC Auto (Bld) Ordered By: Yusra Santoyo on 02-22-2022 Basophils/100 WBC (Bld) 0.7 % . F [facility] Bilirubin Test strip Ql (U)O rdered By: Yusra Santoyo on 02-22-2022 Bilirubin Ql (U) Negative Negative [facility] COVID CepheidOrdered By: Adan Santoyo on 02-22-2022 SARS-CoV-2 (COVID-19) Ab IA Ql Negative Negative [facility] Comment on above: This is a duplicate [employer] Xpert Xpress CoV-2/Flu/RSV Plus RNA by RT-PCR result to be used for statistical tracking purpose only. SARS-CoV-2 (COVID-19) RNA MADISON+probe Ql (Unsp spec) [facility] SARS-CoV-2 (COVID-19) RNA MADISON+probe Ql (Unsp spec) [facility] Color Auto (U)Ordered By: Joel Santoyo on 02-22-2022 Color (U) Yellow Yellow [facility] Creatine kinase [Enzymatic a ctivity/volume] in Serum or PlasmaOrdered By: Yusra Santoyo on 02-22-2022 CK [Catalytic activity/Vol] 54 U/L 22-269 [facility] Creatinine and Glomerular fi ltration rate.predicted panel (S/P/Bld)Ordered By: Yusra Santoyo on 02-22-2022 Creatinine [Mass/Vol] 5.19 mg/dL 0.44-1.03 [facility] Eosinophils Auto (Bld) [#/Vo l]Ordered By: Yusra Santoyo on 02-22-2022 Eosinophils (Bld) [#/Vol] 0.2 10*3/uL 0.0-0.45 [facility] Eosinophils/100 WBC Auto (Bl d)Ordered By: Yusra Santoyo on 02-22-2022 Eosinophils/100 WBC (Bld) 3.7 % . [facility] Erythrocyte distribution wid th Auto (RBC) [Ratio]Ordered By: Yusra Santoyo on 02-22-2022 Erythrocyte distribution width (RBC) [Ratio] 16.2 % 11.9-15.3 [facility] Estimated glomerular filtrat ion rate (GFR) non- AmericanOrdered By: Yusra Santoyo on 02-22-2022 GFR/1.73 sq M.predicted among non-blacks MDRD (S/P/Bld) [Vol rate/Area] 8 mL/Min [facility] Hematocrit Auto (Bld) [Volum e fraction]Ordered By: Yusra Santoyo on 02-22-2022 Hematocrit (Bld) [Volume fraction] 26.0 % 34.0-46.4 [facility] Hemoglobin [Mass/volume] in BloodOrdered By: Yusra Santoyo on 02-22-2022 Hemoglobin (Bld) [Mass/Vol] 8.2 g/dL 11.8-15.4 [facility] Ketones Auto test strip (U) [Mass/Vol]Ordered By: Yusra Santoyo on 02-22-2022 Ketones (U) [Mass/Vol] Negative Negative [facility] Laboratory - Chemistry and C hemistry - challengeOrdered By: Yusra Satnoyo on 02-22-2022 Natriuretic peptide B (Bld) [Mass/Vol] 3549.0 pg/mL 5-100 [facility] Laboratory - CoagulationOrde red By: Yusra Santoyo on 02-22-2022 PT Coag (PPP) [Time] 15.6 s 9.0-12.9 [facility] Laboratory - UrinalysisOrder ed By: Yusra Santoyo on 02-22-2022 Hyaline casts LM Ql (Urine sed) 0-8 [LPF] 0-8 [facility] Leukocytes [#/volume] correc tr for nucleated erythrocytes in Blood by Automated counOrdered By: Yusra Santoyo on 02-22-2022 WBC corrected for nucl RBC Auto (Bld) [#/Vol] 6.8 10*3/uL 3.8-11.6 [facility] Lymphocytes Auto (Bld) [#/Vo l]Ordered By: Yusra Santoyo on 02-22-2022 Lymphocytes (Bld) [#/Vol] 0.8 10*3/uL 1.00-4.8 [facility] Lymphocytes/100 WBC Auto (Bl d)Ordered By: Yusra Santoyo on 02-22-2022 Lymphocytes/100 WBC (Bld) 12.3 % . [facility] MCH Auto (RBC) [Entitic mass ]Ordered By: Yusra Santoyo on 02-22-2022 MCH (RBC) [Entitic mass] 29.6 pg 24.7-34.3 [facility] MCHC Auto (RBC) [Mass/Vol]Or dered By: Yusra Santoyo on 02-22-2022 MCHC (RBC) [Mass/Vol] 31.5 g/dL 32.0-35.0 [facility] MCV Auto (RBC) [Entitic vol] Ordered By: Yusra Santoyo on 02-22-2022 MCV (RBC) [Entitic vol] 94.0 fL 80-[address] [facility] Monocyte distribution width [Entitic volume] in Blood by AutomatedOrdered By: Yusra Santoyo on 02-22-2022 Monocyte distribution width Auto (Bld) [Entitic vol] 18.44 % 0.00-20.00 [facility] Monocytes Auto (Bld) [#/Vol] Ordered By: Yusra Santoyo on 02-22-2022 Monocytes (Bld) [#/Vol] 0.8 10*3/uL 0.0-0.8 [facility] Monocytes/100 WBC Auto (Bld) Ordered By: Yusra Santoyo on 02-22-2022 Monocytes/100 WBC (Bld) 11.5 % . F [facility] Neutrophils Auto (Bld) [#/Vo l]Ordered By: Yusra Santoyo on 02-22-2022 Neutrophils (Bld) [#/Vol] 4.9 10*3/uL 1.8-7.7 [facility] Neutrophils/100 WBC Auto (Bl d)Ordered By: Yusra Santoyo on 02-22-2022 Neutrophils/100 WBC (Bld) 71.8 % . [facility] Nitrite Test strip Ql (U)Ord ered By: Yusra Santoyo on 02-22-2022 Nitrite Ql (U) Negative Negative [facility] No Panel InformationOrdered By: Yusra Santoyo on 02-22-2022 Estimated GFR () 10 mL/Min [facility] Comment on above: GFR estimated refere nce range: According to KDOQI guidelines, <60 ml/min/1.73m2 is sufficient to diagnose a patient with chronic kidney disease. Pharmacy Creatinine Clearance (Chem 9.34 [facility] Nucleated erythrocytes [Pres ence] in Blood by Automated countOrdered By: Yusra Santoyo on 02-22-2022 Nucleated RBC Auto Ql (Bld) 0.1 /100{WBC} 0-0.5 [facility] Platelet mean volume Auto (B ld) [Entitic vol]Ordered By: Yusra Santoyo on 02-22-2022 Platelet mean volume (Bld) [Entitic vol] 7.6 fL 6.3-10.7 [facility] Platelet poor plasma interna tional normalized ratio (INR) by coagulation assay (relatOrdered By: Yusra Santoyo on 02-22-2022 INR Coag (PPP) [Relative time] 1.4 {INR} [facility] Comment on above: INR Therapeutic [...] 02-22-2022 Platelets (Bld) [#/Vol] 240 10*3/uL 150-450 [facility] Protein Auto test strip (U) [Mass/Vol]Ordered By: Yusra Santoyo on 02-22-2022 Protein (U) [Mass/Vol] 100 mg/dL Negative [facility] RBC Auto (Bld) [#/Vol]Ordere d By: Yusra Santoyo on 02-22-2022 RBC (Bld) [#/Vol] 2.77 10*6/uL 3.60-5.00 [facility] Serum or plasma anion gap de terminationOrdered By: Yusra Santoyo on 02-22-2022 Anion gap [Moles/Vol] 18.6 mmol/L 6.0-15.0 [facility] Serum or plasma calcium eugenie urement (mass/volume)Ordered By: Yusra Santoyo on 02-22-2022 Calcium [Mass/Vol] 9.4 mg/dL 8.2-10.2 [facility] Serum or plasma chloride marciano surement (moles/volume)Ordered By: Yusra Santoyo on 02-22-2022 Chloride [Moles/Vol] 100 mmol/L 95-114 [facility] Serum or plasma creatine kin ase MB (CKMB)/total creatine kinase (CK) ratio by calculaOrdered By: Yusra Santoyo on 02-22-2022 CK.MB Calc [Catalytic fraction] 8.3 % 0.00-2.50 [facility] Serum or plasma creatine kin ase MB measurement (mass/volume)Ordered By: Yusra Santoyo on 02-22-2022 CK.MB [Mass/Vol] 4.5 ng/mL 0.6-6.3 [facility] Serum or plasma glucose eugenie urement (mass/volume)Ordered By: Yusra Santoyo on 02-22-2022 Glucose [Mass/Vol] 142 mg/dL 70-100 [facility] Comment on above: ADA recommended refe rence rangeRandom Glucose Reference Range is dependent on time and content of last meal. Glucose of more than 200 mg/dL in a nonstressed, ambulatory subject supports the diagnosis of Diabetes Mellitus. Serum or plasma potassium me asurement (moles/volume)Ordered By: Yusra Santoyo on 02-22-2022 Potassium [Moles/Vol] 5.0 mmol/L 3.5-5.1 [facility] Serum or plasma sodium measu rement (moles/volume)Ordered By: Yusra Santoyo on 02-22-2022 Sodium [Moles/Vol] 132 mmol/L 136-146 [facility] Serum or plasma total carbon dioxide measurement (moles/volume)Ordered By: Yusra Santoyo on 02-22-2022 CO2 [Moles/Vol] 18.4 mmol/L 22.0-30.0 [facility] [place] Serum or plasma urea nitroge n measurement (mass/volume)Ordered By: Yusra Santoyo on 02-22-2022 Urea nitrogen [Mass/Vol] 126 mg/dL 11-02 [facility] Specific gravity Auto test s trip (U) [Rel density]Ordered By: Yusra Santoyo on 02-22-2022 Specific gravity (U) [Rel density] 1.015 1.001-1.030 [facility] Squamous epithelial cells de tection in urine sediment by light microscopyOrdered By: Yusra Santoyo on 02-22-2022 Epithelial cells.squamous LM Ql (Urine sed) 3-4 [HPF] 0-2 [facility] Troponin I.cardiac [Mass/vol ume] in Serum or Plasma by High sensitivity methodOrdered By: Malika Arreaga on 02-22-2022 Troponin I.cardiac High sensitivity method [Mass/Vol] 85 pg/mL 0-15 [facility] Comment on above: Results calledat 231 4 on 02/22/22 Troponin I.cardiac [Mass/vol ume] in Serum or Plasma by High sensitivity methodOrdered By: Yusra Santoyo on 02-22-2022 Troponin I.cardiac High sensitivity method [Mass/Vol] 82 pg/mL 0-15 [facility] Comment on above: Results calledat 203 2 on 02/22/22 Urine bacteria detection by automated methodOrdered By: Yusra Santoyo on 02-22-2022 Bacteria Auto Ql (U) None seen None Seen [facility] Urine clarity by refractomet ry automatedOrdered By: Yusra Santoyo on 02-22-2022 Clarity Refractometry automated (U) Clear Clear [facility] Urine culture routineOrdered By: Yusra Santoyo on 02-22-2022 Bacteria identified Cx Nom (U) 2 Days [facility] Bacteria identified Cx Nom (U) 2 Days [facility] Urine glucose measurement by automated test strip (mass/volume)Ordered By: Yusra Santoyo on 02-22-2022 Glucose Auto test strip (U) [Mass/Vol] Normal mg/dL Normal [facility] Urine hemoglobin detection b y automated test stripOrdered By: Yusra Santoyo on 02-22-2022 Hemoglobin Auto test strip Ql (U) Negative Negative [facility] Urine leukocyte esterase det ection by automated test stripOrdered By: Yusra Santoyo on 02-22-2022 Leukocyte esterase Auto test strip Ql (U) 2+ Negative [facility] Urobilinogen Auto test strip (U) [Mass/Vol]Ordered By: Yusra Santoyo on 02-22-2022 Urobilinogen (U) [Mass/Vol] Normal mg/dL Normal [facility] WBC Auto (Bld) [#/Vol]Ordere d By: Yusra Santoyo on 02-22-2022 WBC (Bld) [#/Vol] 6.8 10*3/uL 3.8-11.6 [facility] Yeast detection in urine sed iment by light microscopyOrdered By: Yusra Santoyo on 02-22-2022 Yeast LM Ql (Urine sed) None seen [HPF] None Se en [facility] pH Auto test strip (U)Ordere d By: Yusra Santoyo on 02-22-2022 pH (U) 5.0 [pH] 5.0-9.0 [facility] PHOSPHOLIPIDSon 02-14-2022 Phospholipids, Serum 159 mg/dL Normal 151-288 [facility] Comment on above: Performed By: #### P HOSLIP ####[facility] [address] [place], [place] [address]QoLucia Marlin Carlos XR CHEST COMP MIN 4Von 02-14 XR CHEST COMP MIN 4V Normal [facility] CT biopsyOrdered By: Geronimo shoemaker on 01-30-2022 Transferrin [Mass/Vol] 158 mg/dL 180-380 [facility] Ferritin [Mass/volume] in Se rum or PlasmaOrdered By: Geronimo Graham on 01-30-2022 Ferritin [Mass/Vol] 1272.3 ng/mL 11-306.8 [facility] Folate [Mass/volume] in Seru m or PlasmaOrdered By: Geronimo Graham on 01-30-2022 Folate [Mass/Vol] ng/mL >5.9 [facility] Comment on above: Folate reference ran ge: >5.9 ng/mlThe WHO technical consultation on folate and vitamin r22fjnyzytxlufx has determined that folate concentrations lessthan 4 ng/ml are considered deficient. Iron [Mass/volume] in Serum or PlasmaOrdered By: Geronimo Graham on 01-30-2022 Iron [Mass/Vol] 43 ug/dL 40-150 [facility] Iron binding capacity [Mass/ volume] in Serum or PlasmaOrdered By: Geronimo Graham on 01-30-2022 Iron binding capacity [Mass/Vol] 221 ug/dL 255-450 [facility] Iron saturation [Mass Fracti on] in Serum or PlasmaOrdered By: Geronimo Graham on 01-30-2022 Iron saturation [Mass fraction] 19.0 % 20-50 [facility] Laboratory - Chemistry and C hemistry - challengeOrdered By: Geronimo Graham on 01-30-2022 Cobalamin (Vitamin B12) [Mass/Vol] 630 pg/mL 180-914 [facility] PTH INTACTon 01-15-2022 PTH, Intact 87 pg/mL Critically high 15-65 [facility] Comment on above: Performed By: #### P THINT ####[facility] [address] [place] [address]Dr. Marlin Gonzalez CBC AUTO DIFFon 01-14-2022 BASO # 0.0 103/ul Normal 0.0-0.1 [facility] Comment on above: Performed By: #### C BC ####[facility] [address] [place] [address]DrLucia Gonzalez Basophils/100 WBC (Bld) 0.4 % Normal 0.2-2.0 [facility] Comment on above: Performed By: #### C BC ####[facility] [address] [place] [address]DrLucia Marlin Gonzalez EO # 0.5 103/ul Normal 0.0-0.7 [facility] Comment on above: Performed By: #### C BC ####[facility] [address] [place] [address]DrLucia Katherinearmando Gonzalez Eosinophils/100 WBC (Bld) 5.3 % Normal 0.9-7.0 [facility] Comment on above: Performed By: #### C BC ####[facility] Atoxx[address] [place], [place] [address]Dr. Katherinearmando Gonzalez Erythrocyte distribution width (RBC) [Ratio] 15.7 % Critically high 11.0-15.0 [facility] Comment on above: Performed By: #### C BC ####[facility] Qoegkx[address]cl[address] [place], [place] [address]DrLucia Gonzalez Hematocrit (Bld) [Volume fraction] 25.3 % Critically low 36.0-48.0 [facility] Comment on above: Performed By: #### C BC ####[facility] [address] [place], [place] [address]DrLucia Katherinearmando Gonzalez Hemoglobin (Bld) [Mass/Vol] 8.0 g/dL Critically low 12.0-16.0 [facility] Comment on above: Performed By: #### C BC ####[facility] [address] [place], [place] [address]DrLucia Gonzalez IG # 0.05 10e3/ul Critically high 0.00-0.03 [facility] Comment on above: Performed By: #### C BC ####[facility] Nzgwhuungz[address] [place], [place] [address]DrLucia Gonzalez IG % 0.6 % Critically high 0.0-0.5 [facility] Comment on above: Performed By: #### C BC ####[facility] [address] [place], [place] [address]DrLucia Gonzalez LYMPH # 1.0 103/ul Critically low 1.2-3.8 [facility] Comment on above: Performed By: #### C BC ####[facility] [address] [place] [address]Dr. Marlin Gonzalez Lymphocytes/100 WBC (Bld) 10.7 % Critically low 20.5-60.0 [facility] Comment on above: Performed By: #### C BC ####[facility] [address] [place] [address]Dr. Marlin Gonzalez MANUAL DIFF REQ NO Normal [facility] Comment on above: Performed By: #### C BC ####[facility] [address] [place] [address]Dr. Marlin Gonzalez MCH (RBC) [Entitic mass] 30.3 pg Normal 26.7-34.0 [facility] Comment on above: Performed By: #### C BC ####[facility] Ed[address]njtpms[address] [place], [place] [address]Dr. Marlin Gonzalez MCHC (RBC) [Mass/Vol] 31.6 g/dL Normal 29.9-35.2 [facility] Comment on above: Performed By: #### C BC ####[facility] Z[address] [place], [place] [address]Dr. Marlin Gonzalez MCV (RBC) [Entitic vol] 95.8 fL Normal 81.0-99.0 [facility] Comment on above: Performed By: #### C BC ####[facility] Ewkannq[address] [place], [place] [address]Dr. Marlin Gonzalez MONO # 0.8 103/ul Normal 0.3-0.8 [facility] Comment on above: Performed By: #### C BC ####[facility] [address]ujc[address] [place], [place] [address]Dr. Marlin Gonzalez Monocytes/100 WBC (Bld) 8.5 % Normal 1.7-12.0 [facility] Comment on above: Performed By: #### C BC ####[facility] [address] [place], [place] [address]Dr. Marlin Gonzalez NEUT # 6.6 103/ul Critically high 1.4-6.5 [facility] Comment on above: Performed By: #### C BC ####[facility] [address] [place] [address]Dr. Marlin Gonzalez Neutrophils/100 WBC (Bld) 74.5 % Normal 43.0-75.0 [facility] Comment on above: Performed By: #### C BC ####[facility] [address] [place] [address]Dr. Marlin Gonzalez Platelet mean volume (Bld) [Entitic vol] 9.1 fL Critically low 9.5-13.5 [facility] Comment on above: Performed By: #### C BC ####[facility] [address] [place], [place] [address]Dr. Marlin Gonzalez PLT 216 103/ul Normal 150-450 [facility] Comment on above: Performed By: #### C BC ####[facility] Duejjysnjd[address] [place], [place] [address]Dr. Marlin Gonzalez RBC 2.64 106/ul Critically low 4.20-5.40 [facility] Comment on above: Performed By: #### C BC ####[facility] [address]uzsogu[address] [place], [place] [address]Dr. Marlin Gonzalez WBC 8.9 103/ul Normal 4.0-11.0 [facility] Comment on above: Performed By: #### C BC ####[facility] R[address]wo[address] [place], [place] [address]Dr. Marlin Gonzalez FERRITINon 01-14-2022 Ferritin [Mass/Vol] 2230.0 ng/mL Critically high 8.0-252.0 [facility] Comment on above: Performed By: #### F ERR, FETIBC, VITAD ####[facility] U[address]rf[address] [place], [place] [address]Dr. Marlin Gonzalez IRON AND TIBCon 01-14-2022 % SATURATION 26.9 % Normal [facility] Comment on above: Performed By: #### F ERR, FETIBC, VITAD ####[facility] [address]aw[address] [place], [place] [address]Dr. Marlin Gonzalez Iron [Mass/Vol] 56.0 ug/dL Normal 50.0-170.0 [facility] Comment on above: Performed By: #### F ERR, FETIBC, VITAD ####[facility] [address] [place] [address]Dr. Marlin Gonzalez TIBC DIRECT 208.0 ug/dL Critically low 250.0-450.0 [facility] Comment on above: Performed By: #### F ERR, FETIBC, VITAD ####[facility] [address] [place] [address]Dr. Marlin Gonzalez PROF 14(COMP METB)on 022 Albumin [Mass/Vol] 2.8 g/dL Critically low 3.4-5.0 [facility] Comment on above: Performed By: #### C MP ####[facility] [address] [place] [address]Dr. Marlin Gonzalez Albumin/Globulin [Mass ratio] 0.7 {ratio} Normal [facility] Comment on above: Performed By: #### C MP ####[facility] [address] [place] [address]Dr. Marlin Gonzalez ALP [Catalytic activity/Vol] 171 U/L Critically high 46-116 [facility] Comment on above: Performed By: #### C MP ####[facility] [address]awsr[address] [place] [address]Dr. Marlin Gonzalez ALT [Catalytic activity/Vol] 33 U/L Normal 14-59 [facility] Comment on above: Performed By: #### C MP ####[facility] [address] [place] [address]Dr. Marlin Gonzalez Anion gap [Moles/Vol] 12.8 mmol/L Normal [facility] Comment on above: Performed By: #### C MP ####[facility] [address]ynbrlcmcv[address] [place] [address]Dr. Marlin Gonzalez AST [Catalytic activity/Vol] 15 U/L Normal 15-37 [facility] Comment on above: Performed By: #### C MP ####[facility] [address] [place] [id number]. Marlin Gonzalez Bilirubin [Mass/Vol] 0.3 mg/dL Normal 0.2-1.0 [facility] Comment on above: Performed By: #### C MP ####[facility] [address] [place] [id number]. Marlin Gonzalez Calcium [Mass/Vol] 9.2 mg/dL Normal 8.5-10.1 [facility] Comment on above: Performed By: #### C MP ####[facility] [address] [place] [id number]. Marlin Gonzalez Chloride [Moles/Vol] 98 mmol/L Normal 98-107 [facility] Comment on above: Performed By: #### C MP ####[facility] L[address]nn[address] [place], [place] [address]Dr. Marlin Gonzalez CO2 [Moles/Vol] 27.4 mmol/L Normal 21.0-32.0 [facility] Comment on above: Performed By: #### C MP ####[facility] O[address]uvg[address]zzk[address] [place] [id number]. Marlin Gonzalez Creatinine [Mass/Vol] 2.76 mg/dL Critically high 0.55-1.02 [facility] Comment on above: Performed By: #### C MP ####[facility] Xt[address]ksny[address] [place], [place] [address]Dr. Marlin Gonzalez EGFR-AF AFGHAN 20 mL/min/1.73m2 Critically low >=60 [facility] Comment on above: Performed By: #### C MP ####[facility] [address] [place] [phone]. Marlin Gonzalez EGFR-NON AF AFGHAN 17 mL/min/1.73m2 Critically low >=60 [facility] Comment on above: Performed By: #### C MP ####[facility] U[address]es[address] [place], [place] [address]Dr. Marlin Gonzalez Globulin (S) [Mass/Vol] 4.2 g/dL Normal [facility] Comment on above: Performed By: #### C MP ####[facility] [address]cos[address]yi[address] [place] [id number]. Marlin Gonzalez Glucose [Mass/Vol] 217 mg/dL Critically high 74-106 [facility] Comment on above: Performed By: #### C MP ####[facility] Mfgoroqjpj4724 [place] [id number]. Marlin Gonzalez Potassium [Moles/Vol] 4.2 mmol/L Normal 3.5-5.1 [facility] Comment on above: Performed By: #### C MP ####[facility] Atzm[address]hm[address] [place], [place] [address]Dr. Katherinearmando Carlos Protein [Mass/Vol] 7.0 g/dL Normal 6.4-8.2 [facility] Comment on above: Performed By: #### C MP ####[facility] [address]fzxahf[address] [place], [place] [address]Dr. Marlin Gonzalez Sodium [Moles/Vol] 134 mmol/L Critically low 136-145 [facility] Comment on above: Performed By: #### C MP ####[facility] [address]eth[address]ry[address] [place] [address]Dr. Marlin Gonzalez Urea nitrogen [Mass/Vol] 95.0 mg/dL Critically high 7.0-18.0 [facility] Comment on above: Performed By: #### C MP ####[facility] [address]fjlqizemn[address] [place], [place] [address]Dr. Marlin Gonzalez Urea nitrogen/Creatinine [Mass ratio] 34.4 mg/mg Normal [facility] Comment on above: Performed By: #### C MP ####[facility] K[address]trzg[address] [place], [place] [address]Dr. Marlin Gonzalez UA RANDOMon 01-14-2022 Bilirubin Ql (U) Negative Normal NEGATIVE [facility] Comment on above: Performed By: #### U A ####[facility] [address]fs[address] [place] [address]Dr. Marlin Gonzalez Clarity (U) CLEAR Normal CLEAR [facility] Comment on above: Performed By: #### U A ####[facility] Lbrnnsf[address] [place], [place] [id number]. Marlin Gonzalez Color (U) LT. YELLOW Normal YELLOW [facility] Comment on above: Performed By: #### U A ####[facility] Ybeby[address]js[address] [place], [place] [address]Dr. Katherinearmando Carlos Glucose Ql (U) 100 mg/dl Abnormal NEGATIVE [facility] Comment on above: Performed By: #### U A ####[facility] Dfsqotonjl[address] [place], [place] [address]Dr. Katherinearmando Carlos Hemoglobin Ql (U) Negative Normal NEGATIVE [facility] Comment on above: Performed By: #### U A ####[facility] Phrhmidcwp[address] [place], [place] [address]Dr. Marlin Gonzalez Ketones Ql (U) Negative Normal NEGATIVE [facility] Comment on above: Performed By: #### U A ####[facility] [address]aleioxek[address] [place], [place] [address]Dr. Marlin Gonzalez LEUKOCYTES Negative Normal NEGATIVE [facility] Comment on above: Performed By: #### U A ####[facility] Xodymrgrpx[address] [place], [place] [address]Dr. Katherinearmando Carlos Nitrite Ql (U) Negative Normal NEGATIVE [facility] Comment on above: Performed By: #### U A ####[facility] Imorzsodni[address] [place], [place] [address]Dr. Marlin Gonzalez pH (U) 5.5 [pH] Normal 5-9 [facility] Comment on above: Performed By: #### U A ####[facility] [address]bpr[address]vx[address] [place], [place] [address]Dr. Marlin Gonzalez SPEC GRAVITY 1.020 Normal 1.005-<=1.02 5 [facility] Comment on above: Performed By: #### U A ####[facility] Etjpmmqhpp[address] [place], [place] [address]Dr. Marlin Gonzalez UA PROTEIN 100 mg/dl Abnormal NEGATIVE/ TRACE [facility] Comment on above: Performed By: #### U A ####[facility] Qrgxavcnqp[address] [place], [place] [address]Dr. Marlin Gonzalez Urobilinogen Qn (U) 0.2 {Ryan'U}/dL Normal 0.2 - 1. 0 [facility] Comment on above: Performed By: #### U A ####[facility] [address]qth[address] [place] [address]Dr. Marlin Gonzalez URIC ACID SERUMon 01-14-2022 Urate [Mass/Vol] 8.4 mg/dL Critically high 2.6-6.0 [facility] Comment on above: Performed By: #### U SOO ####[facility] [address]sw[address] [place], [place] [address]Dr. Marlin Gonzalez URINE T PROTEIN CREAT RATIOo n 01-14-2022 Protein (U) [Mass/Vol] 165.0 mg/dL Critically high <=12.0 [facility] Comment on above: Performed By: #### U RTPCR ####[facility] Tyuckxeowr[address] [place], [place] [address]Dr. Marlin Gonzalez UR PROT CREAT RAT 4.18 Normal [facility] Comment on above: Performed By: #### U RTPCR ####[facility] Eqgugjsihc[address] [place], [place] [address]Dr. Marlin Gonzalez URINE CREAT 39.50 mg/dL Normal 20.00-300.00 [facility] Comment on above: Performed By: #### U RTPCR ####[facility] S[address] [place], [place] [address]Dr. Marlin Gonzalez VITAMIN D 25 OHon 01-14-2022 VIT D 25-OH 36.3 ng/mL Normal [facility] Comment on above: Performed By: #### F ERR, FETIBC, VITAD ####[facility] [address]neygc[address] [place], [place] [address]Dr. Marlin Gonzalez VIT D RANGES SEE BELOW Normal [facility] Comment on above: Result Comment: <20 ng/mL Vit D deficient 20 - <30 ng/mL Vit D insufficient 30 - 100 ng/mL Vit D sufficient >100 ng/mL Potential Toxicity Performed By: #### F ERR, FETIBC, VITAD ####[facility] Idfxscfume[address] [place], [place] [address]Dr. Marlin Gonzalez XR CHEST 2 Von 01-14-2022 XR CHEST 2 V Normal [facility] ACID FAST SMEAR AND CXon Acid Fast Culture Negative Normal [facility] Comment on above: Result Comment: No a immanuel fast bacilli isolated after 6 weeks. Performed By: #### A FB ####[facility] [address] [place] [address]Dr. Marlin Gonzalez Acid Fast Smear Negative Normal [facility] Comment on above: Performed By: #### A FB ####[facility] [address]ixgb[address]xkh[address] [place], [place] [address]Dr. Marlin Gonzalez AF[employer] Specimen Processing Direct Inoculation Normal [facility] Comment on above: Performed By: #### A FB ####[facility] [address] [place], [place] [address]Dr. Katherinearmando Gonzalez FUNGAL CULTUREon 12-07-2021 Fungus (Mycology) Culture Final report Normal [facility] Comment on above: Performed By: #### C XFUN ####[facility] Zn[address]wctdgt[address] [place], [place] [address]Dr. Katherinearmando Gonzalez Fungus Stain Final report Normal [facility] Comment on above: Performed By: #### C XFUN ####[facility] [address]iahrliyyn[address] [place], [place] [address]Dr. Katherinearmando Gonzalez Result 1 Comment Normal [facility] Comment on above: Result Comment: WILMA/ Calcofluor preparation: no fungus observed. Performed By: #### C XFUN ####[facility] Nubtsvpuxe[address] [place], [place] [address]Dr. Marlin Gonzalez Result Comment: No y east or mold isolated after 4 weeks. PTH INTACTon 11-24-2021 PTH, Intact 66 pg/mL Critically high 15-65 [facility] Comment on above: Performed By: #### P THINT ####[facility] F[address]ls[address] [place], [place] [address]Dr. Marlin Gonzalez FERRITINon 11-22-2021 Ferritin [Mass/Vol] 3067.0 ng/mL Critically high 8.0-252.0 [facility] Comment on above: Performed By: #### F ERR, B12FOL, FETIBC, VITAD ####[facility] [address]rtxp[address] [place], [place] [address]Dr. Marlin Gonzalez HEMOGLOBIN AND HEMATOCRITon 11-22-2021 Hematocrit (Bld) [Volume fraction] 27.7 % Critically low 36.0-48.0 [facility] Comment on above: Performed By: #### H GBHCT ####[facility] [address]fdjxsx[address] [place], [place] [address]Dr. Marlin Gonzalez Hemoglobin (Bld) [Mass/Vol] 8.9 g/dL Critically low 12.0-16.0 [facility] Comment on above: Performed By: #### H GBHCT ####[facility] F[address]uleppyl[address] [place], [place] [address]Dr. Marlin Gonzalez IRON AND TIBCon 11-22-2021 % SATURATION 15.2 % Normal [facility] Comment on above: Performed By: #### F ERR, B12FOL, FETIBC, VITAD ####[facility] [address]omink[address] [place], [place] [address]Dr. Marlin Gonzalez Iron [Mass/Vol] 25.0 ug/dL Critically low 50.0-170.0 [facility] Comment on above: Performed By: #### F ERR, B12FOL, FETIBC, VITAD ####[facility] C[address]ugdqcau[address] [place], [place] [address]Dr. Marlin Gonzalez TIBC DIRECT 165.0 ug/dL Critically low 250.0-450.0 [facility] Comment on above: Performed By: #### F ERR, B12FOL, FETIBC, VITAD ####[facility] [address]fghrg[address] [place], [place] [address]Dr. Marlin Gonzalez MAGNESIUMon 11-22-2021 Magnesium [Mass/Vol] 2.1 mg/dL Normal 1.8-2.4 [facility] Comment on above: Performed By: #### C MP, MG, URIC ####[facility] [address]kv[address]chuain[address] [place], [place] [address]Dr. Marlin Gonzalez PROF 14(COMP METB)on 022 Albumin [Mass/Vol] 2.6 g/dL Critically low 3.4-5.0 [facility] Comment on above: Performed By: #### C MP, MG, URIC ####[facility] [address] [place] [address]Dr. Marlin Gonzalez Albumin/Globulin [Mass ratio] 0.7 {ratio} Normal [facility] Comment on above: Performed By: #### C MP, MG, URIC ####[facility] [address] [place] [address]Dr. Marlin Gonzalez ALP [Catalytic activity/Vol] 93 U/L Normal 46-116 [facility] Comment on above: Performed By: #### C MP, MG, URIC ####[facility] [address]afj[address] [place], [place] [address]Dr. Marlin Gonzalez ALT [Catalytic activity/Vol] 54 U/L Normal 14-59 [facility] Comment on above: Performed By: #### C MP, MG, URIC ####[facility] [facility] [address] [place], [place] [address]Dr. Marlin Gonzalez Anion gap [Moles/Vol] 13.0 mmol/L Normal [facility] Comment on above: Performed By: #### C MP, MG, URIC ####[facility] T[address]mg[address] [place], [place] [address]Dr. Marlin Gonzalez AST [Catalytic activity/Vol] 38 U/L Critically high 15-37 [facility] Comment on above: Performed By: #### C MP, MG, URIC ####[facility] Whcvteeiey[address] [place], [place] [address]Dr. Marlin Gonzalez Bilirubin [Mass/Vol] 0.4 mg/dL Normal 0.2-1.0 [facility] Comment on above: Performed By: #### C MP, MG, URIC ####[facility] [address] [place] [address]Dr. Marlin Gonzalez Calcium [Mass/Vol] 9.4 mg/dL Normal 8.5-10.1 [facility] Comment on above: Performed By: #### C MP, MG, URIC ####[facility] [address]bum[address] [place] [address]Dr. Marlin Gonzalez Chloride [Moles/Vol] 95 mmol/L Critically low 98-107 [facility] Comment on above: Performed By: #### C MP, MG, URIC ####[facility] [address] [place] [address]Dr. Marlin Gonzalez CO2 [Moles/Vol] 27.3 mmol/L Normal 21.0-32.0 [facility] Comment on above: Performed By: #### C MP, MG, URIC ####[facility] [address] [place] [address]Dr. Marlin Gonzalez Creatinine [Mass/Vol] 3.74 mg/dL Critically high 0.55-1.02 [facility] Comment on above: Performed By: #### C MP, MG, URIC ####[facility] [address]wk[address] [place], [place] [address]Dr. Marlin Gonzalez EGFR-AF AFGHAN 14 mL/min/1.73m2 Critically low >=60 [facility] Comment on above: Performed By: #### C MP, MG, URIC ####[facility] [address] [place], [place] [address]Dr. Marlin Gonzalez EGFR-NON AF AFGHAN 12 mL/min/1.73m2 Critically low >=60 [facility] Comment on above: Performed By: #### C MP, MG, URIC ####[facility] [address] [place] [address]Dr. Marlin Gonzalez Globulin (S) [Mass/Vol] 3.7 g/dL Normal [facility] Comment on above: Performed By: #### C MP, MG, URIC ####[facility] [address] [place] [address]Dr. Marlin Gonzalez Glucose [Mass/Vol] 160 mg/dL Critically high 74-106 [facility] Comment on above: Performed By: #### C MP, MG, URIC ####[facility] [address] [place] [address]Dr. Marlin Gonzalez Potassium [Moles/Vol] 4.3 mmol/L Normal 3.5-5.1 [facility] Comment on above: Performed By: #### C MP, MG, URIC ####[facility] Wyqb[address] [place], [place] [address]Dr. Marlin Gonzalez Protein [Mass/Vol] 6.3 g/dL Critically low 6.4-8.2 [facility] Comment on above: Performed By: #### C MP, MG, URIC ####[facility] Brpwqwentn[address] [place], [place] [address]Dr. Marlin Gonzalez Sodium [Moles/Vol] 131 mmol/L Critically low 136-145 [facility] Comment on above: Performed By: #### C MP, MG, URIC ####[facility] Rhxdlhpgix[address] [place], [place] [address]Dr. Marlin Gonzalez Urea nitrogen [Mass/Vol] 80.0 mg/dL Critically high 7.0-18.0 [facility] Comment on above: Performed By: #### C MP, MG, URIC ####[facility] Qomecwkseb4[address] [place], [place] [address]Dr. Marlin Gonzalez Urea nitrogen/Creatinine [Mass ratio] 21.4 mg/mg Normal [facility] Comment on above: Performed By: #### C MP, MG, URIC ####[facility] Dcraiftifz[address] [place], [place] [address]Dr. Marlin Gonzalez UA RANDOMon 11-22-2021 Bilirubin Ql (U) Negative Normal NEGATIVE [facility] Comment on above: Performed By: #### U A ####[facility] Ihcuhfpvtv[address] [place], [place] [address]Dr. Marlin Gonzalez Clarity (U) CLEAR Normal CLEAR [facility] Comment on above: Performed By: #### U A ####[facility] Cdgaqbpraj[address] [place], [place] [address]Dr. Marlin Gonzalez Color (U) LT. YELLOW Normal YELLOW [facility] Comment on above: Performed By: #### U A ####[facility] Tkwhfitfbc[address] [place], [place] [address]Dr. Marlin Gonzalez Glucose Ql (U) Negative Normal NEGATIVE [facility] Comment on above: Performed By: #### U A ####[facility] [address] [place] [address]Dr. Marlin Gonzalez Hemoglobin Ql (U) Negative Normal NEGATIVE [facility] Comment on above: Performed By: #### U A ####[facility] Qs[address]ra[address] [place] [address]Dr. Marlin Gonzalez Ketones Ql (U) Negative Normal NEGATIVE [facility] Comment on above: Performed By: #### U A ####[facility] Ws[address]irw[address] [place], [place] [address]Dr. Marlin Gonzalez LEUKOCYTES Negative Normal NEGATIVE [facility] Comment on above: Performed By: #### U A ####[facility] [address] [place], [place] [address]Dr. Marlin Gonzalez Nitrite Ql (U) Negative Normal NEGATIVE [facility] Comment on above: Performed By: #### U A ####[facility] Ruzsym[address] [place], [place] [address]Dr. Marlin Gonzalez pH (U) 6.0 [pH] Normal 5-9 [facility] Comment on above: Performed By: #### U A ####[facility] [address]vflqxnqcs[address] [place], [place] [address]Dr. Marlin Gonzalez SPEC GRAVITY 1.010 Normal 1.005-<=1.02 5 [facility] Comment on above: Performed By: #### U A ####[facility] Nbljhdc[address] [place], [place] [address]Dr. Marlin Gonzalez UA PROTEIN 30 mg/dl Abnormal NEGATIVE/ TRACE [facility] Comment on above: Performed By: #### U A ####[facility] Ftpomspv[address] [place], [place] [address]Dr. Marlin Gonzalez Urobilinogen Qn (U) 0.2 {Ryan'U}/dL Normal 0.2 - 1. 0 [facility] Comment on above: Performed By: #### U A ####[facility] Ppvfevnnee[address] [place], [place] [address]Dr. Malrin Gonzalez URIC ACID SERUMon 11-22-2021 Urate [Mass/Vol] 9.9 mg/dL Critically high 2.6-6.0 [facility] Comment on above: Performed By: #### C MP, MG, URIC ####[facility] [address]nowjsqac[address] [place], [place] [address]Dr. Marlin Gonzalez URINE T PROTEIN CREAT RATIOo n 11-22-2021 Protein (U) [Mass/Vol] 58.1 mg/dL Critically high <=12.0 [facility] Comment on above: Performed By: #### U RTPCR ####[facility] Wpxoaqtuyv[address] [place], [place] [address]Dr. Marlin Gonzalez UR PROT CREAT RAT 1.16 Normal [facility] Comment on above: Performed By: #### U RTPCR ####[facility] X[address]xr[address] [place], [place] [address]Dr. Marlin Gonzalez URINE CREAT 49.94 mg/dL Normal 20.00-300.00 [facility] Comment on above: Performed By: #### U RTPCR ####[facility] Br[address]nbeik[address] [place], [place] [address]Dr. Marlin Gonzalez VIT B12 AND FOLATEon 022 Cobalamin (Vitamin B12) [Mass/Vol] 726.0 pg/mL Normal 193.0-986.0 [facility] Comment on above: Performed By: #### F ERR, B12FOL, FETIBC, VITAD ####[facility] V[address] [place], [place] [address]Dr. Marlin Gonzalez FOLATE 21.50 ng/mL Normal 8.60-58.90 [facility] Comment on above: Performed By: #### F ERR, B12FOL, FETIBC, VITAD ####[facility] Aaqbw[address]ca[address] [place], [place] [address]Dr. Marlin Gonzalez VITAMIN D 25 OHon 11-22-2021 VIT D 25-OH 32.1 ng/mL Normal [facility] Comment on above: Performed By: #### F ERR, B12FOL, FETIBC, VITAD ####[facility] [address] [place], [place] [address]Dr. Katherinearmando Gonzalez VIT D RANGES SEE BELOW Normal [facility] Comment on above: Result Comment: <20 ng/mL Vit D deficient 20 - <30 ng/mL Vit D insufficient 30 - 100 ng/mL Vit D sufficient >100 ng/mL Potential Toxicity Performed By: #### F ERR, B12FOL, FETIBC, VITAD ####[facility] [address] [place], [place] [address]Ew. Marlin Gonzalez Basophils Auto (Bld) [#/Vol] Ordered By: Carlton Mtz on 11-20-2021 Basophils (Bld) [#/Vol] 0.0 10*3/uL 0.0-0.2 [facility] Basophils/100 WBC Auto (Bld) Ordered By: Carlton Mtz on 11-20-2021 Basophils/100 WBC (Bld) 0.5 % . F [facility] Blood hemoglobin measurement (mass/volume)Ordered By: Carlton Mtz on 11-20-2021 Hemoglobin (Bld) [Mass/Vol] 9.0 g/dL 11.8-15.4 [facility] Blood leukocytes automated c ount (number/volume)Ordered By: Carlton Mtz on 11-20-2021 WBC (Bld) [#/Vol] 8.2 10*3/uL 4.5-11.0 [facility] Creatinine and Glomerular fi ltration rate.predicted panel (S/P/Bld)Ordered By: Carlton Mtz on 11-20-2021 Creatinine [Mass/Vol] 3.04 mg/dL 0.44-1.03 [facility] Eosinophils Auto (Bld) [#/Vo l]Ordered By: Carlton Mtz on 11-20-2021 Eosinophils (Bld) [#/Vol] 0.1 10*3/uL 0.0-0.45 [facility] Eosinophils/100 WBC Auto (Bl d)Ordered By: Carlton Mtz on 11-20-2021 Eosinophils/100 WBC (Bld) 1.6 % . [facility] Erythrocyte distribution wid th Auto (RBC) [Ratio]Ordered By: Carlton Mtz on 11-20-2021 Erythrocyte distribution width (RBC) [Ratio] 15.2 % 11.9-15.3 [facility] Estimated glomerular filtrat ion rate (GFR) non- AmericanOrdered By: Carlton Mtz on 11-20-2021 GFR/1.73 sq M.predicted among non-blacks MDRD (S/P/Bld) [Vol rate/Area] 15 mL/Min [facility] Glucose Glucometer (BldC) [M ass/Vol]Ordered By: Annette Tenorio on 11-20-2021 Glucose [Mass/Vol] 249 mg/dL [facility] Comment on above: Random Glucose Refer ence Range is dependent on time and content of last meal. Glucose of more than 200 mg/dL in a nonstressed, ambulatory subject supports the diagnosis of Diabetes Mellitus. Hematocrit Auto (Bld) [Volum e fraction]Ordered By: Carlton Mtz on 11-20-2021 Hematocrit (Bld) [Volume fraction] 26.7 % 34.0-46.4 [facility] Laboratory - Hematology and Cell countsOrdered By: Carlton Mtz on 11-20-2021 Nucleated RBC/100 WBC (Bld) [Ratio] 0.0 % 0-0.5 [facility] Lymphocytes Auto (Bld) [#/Vo l]Ordered By: Carlton Mzt on 11-20-2021 Lymphocytes (Bld) [#/Vol] 1.1 10*3/uL 1.00-4.8 [facility] Lymphocytes/100 WBC Auto (Bl d)Ordered By: Carlton Mtz on 11-20-2021 Lymphocytes/100 WBC (Bld) 12.9 % . [facility] MCH Auto (RBC) [Entitic mass ]Ordered By: Carlton Mtz on 11-20-2021 MCH (RBC) [Entitic mass] 30.3 pg 24.7-34.3 [facility] MCHC Auto (RBC) [Mass/Vol]Or dered By: Carlton Mtz on 11-20-2021 MCHC (RBC) [Mass/Vol] 33.6 g/dL 32.0-35.0 [facility] MCV Auto (RBC) [Entitic vol] Ordered By: Carlton Mtz on 11-20-2021 MCV (RBC) [Entitic vol] 90.2 fL 80-[address] [facility] Monocytes Auto (Bld) [#/Vol] Ordered By: Carlton Mtz on 11-20-2021 Monocytes (Bld) [#/Vol] 1.2 10*3/uL 0.0-0.8 [facility] Monocytes/100 WBC Auto (Bld) Ordered By: Carlton Mtz on 11-20-2021 Monocytes/100 WBC (Bld) 14.1 % . F [facility] Neutrophils Auto (Bld) [#/Vo l]Ordered By: Carlton Mtz on 11-20-2021 Neutrophils (Bld) [#/Vol] 5.8 10*3/uL 1.8-7.7 [facility] Neutrophils/100 WBC Auto (Bl d)Ordered By: Carlton Mtz on 11-20-2021 Neutrophils/100 WBC (Bld) 70.9 % . [facility] No Panel InformationOrdered By: Annette Tenorio on 11-20-2021 Bedside Glucose Comment Glu2: cleaned meter [facility] No Panel InformationOrdered By: Carlton Mtz on 11-20-2021 Estimated GFR () 18 mL/Min [facility] Comment on above: GFR estimated refere nce range: According to KDOQI guidelines, <60 ml/min/1.73m2 is sufficient to diagnose a patient with chronic kidney disease. Pharmacy Creatinine Clearance (Chem 15.77 [facility] Platelet mean volume Auto (B ld) [Entitic vol]Ordered By: Carlton Mtz on 11-20-2021 Platelet mean volume (Bld) [Entitic vol] 7.8 fL 6.3-10.7 [facility] Platelets Auto (Bld) [#/Vol] Ordered By: Carlton Mtz on 11-20-2021 Platelets (Bld) [#/Vol] 260 10*3/uL 150-450 [facility] RBC Auto (Bld) [#/Vol]Ordere d By: Carlton Mtz on 11-20-2021 RBC (Bld) [#/Vol] 2.96 10*6/uL 3.60-5.00 [facility] Serum or plasma anion gap de terminationOrdered By: Carlton Mtz on 11-20-2021 Anion gap [Moles/Vol] 13.6 mmol/L 6.0-15.0 [facility] Serum or plasma calcium eugenie urement (mass/volume)Ordered By: Carlton Mtz on 11-20-2021 Calcium [Mass/Vol] 8.8 mg/dL 8.2-10.2 [facility] Serum or plasma chloride marciano surement (moles/volume)Ordered By: Carlton Mtz on 11-20-2021 Chloride [Moles/Vol] 98 mmol/L 95-114 [facility] Serum or plasma glucose eugenie urement (mass/volume)Ordered By: Carlton Mtz on 11-20-2021 Glucose [Mass/Vol] 133 mg/dL 70-100 [facility] Comment on above: ADA recommended refe rence rangeRandom Glucose Reference Range is dependent on time and content of last meal. Glucose of more than 200 mg/dL in a nonstressed, ambulatory subject supports the diagnosis of Diabetes Mellitus. Serum or plasma potassium me asurement (moles/volume)Ordered By: Carlton Mtz on 11-20-2021 Potassium [Moles/Vol] 3.9 mmol/L 3.5-5.1 [facility] Serum or plasma sodium measu rement (moles/volume)Ordered By: Carlton Mtz on 11-20-2021 Sodium [Moles/Vol] 132 mmol/L 136-146 [facility] Serum or plasma total carbon dioxide measurement (moles/volume)Ordered By: Carlton Mtz on 11-20-2021 CO2 [Moles/Vol] 24.3 mmol/L 22.0-30.0 [facility] Serum or plasma urea nitroge n measurement (mass/volume)Ordered By: Carlton Mtz on 11-20-2021 Urea nitrogen [Mass/Vol] 69 mg/dL 9- [facility] Bacteria identified Anaer cx Nom (Unsp spec)Ordered By: Carlton Mtz on 11-19-2021 Anaerobic microbial culture No Anaerobes Isolated 3 Days [facility] Troponin I.cardiac [Mass/vol ume] in Serum or Plasma by High sensitivity methodOrdered By: Carlton Mtz on 11-18-2021 Troponin I.cardiac High sensitivity method [Mass/Vol] 170 pg/mL 0-15 [facility] Comment on above: Results calledat 064 5 on 11/18/21 ABO and Rh group post transf usion reaction Nom (Bld)Ordered By: Carlton Mtz on 11-17-2021 Microscopic observation Gram stain Nom (Unsp spec) [facility] CT biopsyOrdered By: Geronimo shoemaker on 11-17-2021 Transferrin [Mass/Vol] 134 mg/dL 180-380 [facility] Ferritin [Mass/volume] in Se rum or PlasmaOrdered By: Geronimo Graham on 11-17-2021 Ferritin [Mass/Vol] 1362.5 ng/mL 11-306.8 [facility] Folate [Mass/volume] in Seru m or PlasmaOrdered By: Geronimo Graham on 11-17-2021 Folate [Mass/Vol] 19.0 ng/mL >5.9 [facility] Comment on above: Folate reference ran ge: >5.9 ng/mlThe WHO technical consultation on folate and vitamin f75aebomxphxmeb has determined that folate concentrations lessthan 4 ng/ml are considered deficient. Iron [Mass/volume] in Serum or PlasmaOrdered By: Geronimo Graham on 11-17-2021 Iron [Mass/Vol] 39 ug/dL 40-150 [facility] Iron binding capacity [Mass/ volume] in Serum or PlasmaOrdered By: Geronimo Graham on 11-17-2021 Iron binding capacity [Mass/Vol] 188 ug/dL 255-450 [facility] Iron saturation [Mass Fracti on] in Serum or PlasmaOrdered By: Geronimo Graham on 11-17-2021 Iron saturation [Mass fraction] 20.0 % 20-50 [facility] Laboratory - Chemistry and C hemistry - challengeOrdered By: Geronimo Graham on 11-17-2021 Cobalamin (Vitamin B12) [Mass/Vol] 529 pg/mL 180-914 [facility] Activated partial thrombopla stin time (aPTT) in platelet poor plasma by coagulation aOrdered By: Carlton Mtz on 11-16-2021 aPTT Coag (PPP) [Time] 32.8 s 25.1-36.5 [facility] Body fluid albumin measureme nt (mass/volume)Ordered By: Carlton Mtz on 11-16-2021 Albumin (Body fld) [Mass/Vol] 2.6 g/dL 3.2-5.5 [facility] Body fluid differential cell countOrdered By: Carlton Mtz on 11-16-2021 Differential panel (Body fld) 40 % [facility] Comment on above: The reference interv al and other method performance specifications have not been established for this body fluid. The test result must be integrated into the clinical context for interpretation. Body fluid protein measureme nt (mass/volume)Ordered By: Carlton Mtz on 11-16-2021 Protein (Body fld) [Mass/Vol] 2.9 g/dL [facility] CARDIAC JOSSIE 3-6on 2 CK [Catalytic activity/Vol] 62 U/L Normal 26-192 [facility] Comment on above: Performed By: #### C MREP ####[facility] [address] [place] [id number] Gonzalez CK.MB [Mass/Vol] 3.73 ng/mL Critically high <=3.60 [facility] Comment on above: Performed By: #### C MREP ####[facility] [address] [place], [place] [address]WqLucia Gonzalez HSTROP 379.6 pg/mL Critically high 4.0-51.3 [facility] Comment on above: Result Comment: CUT- OFF POINTS HAVE BEEN ESTABLISHED BASED ON THE FOURTH UNIVERSAL DEFINITIONS OF MYOCARDIALINFARCTION. THE UPPER REFERENCE LIMIT (URL) OF TROPONIN, DEFINED THE 99TH PERCENTILE OFcTnI DISTRIBUTION IN A REFERENCE POPULATION, HAS BEEN CONFIRMED THE DECISION THRESHOLDFOR MS DIAGNOSIS. Performed By: #### C MREP ####[facility] [address] [place] [address]Dr. Marlin Gonzalez CK [Catalytic activity/Vol] 61 U/L Normal 26-192 [facility] Comment on above: Performed By: #### C MREP ####[facility] [address] [place] [address]Dr. Marlin Gonzalez CK.MB [Mass/Vol] 4.80 ng/mL Critically high <=3.60 [facility] Comment on above: Performed By: #### C MREP ####[facility] [address] [place] [address]Dr. Marlin Gonzalez HSTROP 415.2 pg/mL Critically high 4.0-51.3 [facility] Comment on above: Result Comment: CUT- OFF POINTS HAVE BEEN ESTABLISHED BASED ON THE FOURTH UNIVERSAL DEFINITIONS OF MYOCARDIALINFARCTION. THE UPPER REFERENCE LIMIT (URL) OF TROPONIN, DEFINED THE 99TH PERCENTILE OFcTnI DISTRIBUTION IN A REFERENCE POPULATION, HAS BEEN CONFIRMED THE DECISION THRESHOLDFOR MS DIAGNOSIS. Performed By: #### C MREP ####[facility] [address] [place] [address]Dr. Marlin Gonzalez CARDIAC JOSSIE ADMITon 022 CK [Catalytic activity/Vol] 66 U/L Normal 26-192 [facility] Comment on above: Performed By: #### C MADM, BMP ####[facility] [address] [place] [address]Dr. Marlin Gonzalez CK.MB [Mass/Vol] 4.87 ng/mL Critically high <=3.60 [facility] Comment on above: Performed By: #### C MADM, BMP ####[facility] [address] [place] [address]Dr. Yilan Gonzalez HSTROP 393.2 pg/mL Critically high 4.0-51.3 [facility] Comment on above: Result Comment: CUT- OFF POINTS HAVE BEEN ESTABLISHED BASED ON THE FOURTH UNIVERSAL DEFINITIONS OF MYOCARDIALINFARCTION. THE UPPER REFERENCE LIMIT (URL) OF TROPONIN, DEFINED THE 99TH PERCENTILE OFcTnI DISTRIBUTION IN A REFERENCE POPULATION, HAS BEEN CONFIRMED THE DECISION THRESHOLDFOR MS DIAGNOSIS. Performed By: #### C SHARI, BMP ####[facility] [address] [place] [address]DrLucia Marlin Gonzalez GHASSAN 237 ng/mL Critically high 9-82 [facility] Comment on above: Performed By: #### C SHARI, BMP ####[facility] [address] [place], [place] [address]DrLucia Marlin Carlos CBC AUTO DIFFon 11-16-2021 BASO # 0.0 103/ul Normal 0.0-0.1 [facility] Comment on above: Performed By: #### C BC ####[facility] [address] [place], [place] [address]DrLucia Murphyarmando Carlos Basophils/100 WBC (Bld) 0.3 % Normal 0.2-2.0 [facility] Comment on above: Performed By: #### C BC ####[facility] Z[address] [place], [place] [address]DrLucia Marlin Carlos EO # 0.4 103/ul Normal 0.0-0.7 [facility] Comment on above: Performed By: #### C BC ####[facility] [address] [place], [place] [address]DrLucia Marlin Carlos Eosinophils/100 WBC (Bld) 6.1 % Normal 0.9-7.0 [facility] Comment on above: Performed By: #### C BC ####[facility] [address]ctq[address] [place], [place] [address]DrLucia Marlin Carlos Erythrocyte distribution width (RBC) [Ratio] 14.3 % Normal 11.0-15.0 [facility] Comment on above: Performed By: #### C BC ####[facility] [address] [place], [place] [address]Dr. Marlin Gonzalez Hematocrit (Bld) [Volume fraction] 27.2 % Critically low 36.0-48.0 [facility] Comment on above: Performed By: #### C BC ####[facility] [address] [place] [address]Dr. Marlin Gonzalez Hemoglobin (Bld) [Mass/Vol] 8.6 g/dL Critically low 12.0-16.0 [facility] Comment on above: Performed By: #### C BC ####[facility] [address] [place] [address]Dr. Marlin Gonzalez IG # 0.03 10e3/ul Normal 0.00-0.03 [facility] Comment on above: Performed By: #### C BC ####[facility] [address] [place] [address]Dr. Marlin Gonzalez IG % 0.5 % Normal 0.0-0.5 [facility] Comment on above: Performed By: #### C BC ####[facility] [address] [place] [address]DrLucia Gonzalez LYMPH # 0.9 103/ul Critically low 1.2-3.8 [facility] Comment on above: Performed By: #### C BC ####[facility] [address] [place] [address]DrLucia Gonzalez Lymphocytes/100 WBC (Bld) 15.2 % Critically low 20.5-60.0 [facility] Comment on above: Performed By: #### C BC ####[facility] [address] [place] [address]DrLucia Gonzalez MANUAL DIFF REQ NO Normal [facility] Comment on above: Performed By: #### C BC ####[facility] [address] [place], [place] [address]DrLucia Gonzalez MCH (RBC) [Entitic mass] 30.1 pg Normal 26.7-34.0 [facility] Comment on above: Performed By: #### C BC ####[facility] [address] [place], [place] [address]Dr. Marlin Gonzalez MCHC (RBC) [Mass/Vol] 31.6 g/dL Normal 29.9-35.2 [facility] Comment on above: Performed By: #### C BC ####[facility] [address] [place] [id number]. Marlin Carlos MCV (RBC) [Entitic vol] 95.1 fL Normal 81.0-99.0 [facility] Comment on above: Performed By: #### C BC ####[facility] [address] [place], [place] [address]DrLucia Gonzalez MONO # 0.9 103/ul Critically high 0.3-0.8 [facility] Comment on above: Performed By: #### C BC ####[facility] [address] [place], [place] [address]DrLucia Gonzalez Monocytes/100 WBC (Bld) 14.7 % Critically high 1.7-12. 0 [facility] Comment on above: Performed By: #### C BC ####[facility] Kvqghr[address]to[address] [place], [place] [address]Dr. Marlin Gonzalez NEUT # 3.7 103/ul Normal 1.4-6.5 [facility] Comment on above: Performed By: #### C BC ####[facility] [address] [place], [place] [address]DrLucia Gonzalze Neutrophils/100 WBC (Bld) 63.2 % Normal 43.0-75.0 [facility] Comment on above: Performed By: #### C BC ####[facility] Gczgqur[address] [place], [place] [address]Dr. Marlin Gonzalez Platelet mean volume (Bld) [Entitic vol] 9.9 fL Normal 9.5-13.5 [facility] Comment on above: Performed By: #### C BC ####[facility] Yvmupbnq[address] [place], [place] [address]DrLucia Gonzalez PLT 300 103/ul Normal 150-450 [facility] Comment on above: Performed By: #### C BC ####[facility] Fxwattie[address] [place], [place] [id number]. Marlin Gonzalez RBC 2.86 106/ul Critically low 4.20-5.40 [facility] Comment on above: Performed By: #### C BC ####[facility] [address] [place], [place] [address]Jn. Marlin Gonzalez WBC 5.9 103/ul Normal 4.0-11.0 [facility] Comment on above: Performed By: #### C BC ####[facility] [address] [place], [place] [address]Pz. Marlin Gonzalez Cells Counted Total [#] in P leural fluidOrdered By: Carlton Mtz on 11-16-2021 Cells Counted Total (Pleur fld) [#] See comment [facility] Comment on above: Unable to accurately quantitiate cells due to clotting, clumping, debris etc. The reference interval and other method performance specifications have not been established for this body fluid. The test result must be integrated into the clinical context for interpretation. Color of Spun Body fluidOrde red By: Carlton Mtz on 11-16-2021 Color (Spun body fld) Yellow [facility] Comment on above: The reference interv al and other method performance specifications have not been established for this body fluid. The test result must be integrated into the clinical context for interpretation. Covid-19 PCR ([facility])on SARS-CoV-2 (COVID-19) RNA MADISON+probe Ql (Unsp spec) Not detected Normal NOT DETECTED [facility] Comment on above: Result Comment: [...] for this test is supported by the Law Office Assistant of Health and Human Service's declaration that [...] be used). Performed By: #### C VDTBH ####[facility] [address] [place], [place] [address]SqLucia Gonzalez Creatine kinase [Enzymatic a ctivity/volume] in Serum or PlasmaOrdered By: Carlton Mtz on 11-16-2021 CK [Catalytic activity/Vol] 286 U/L 22-269 [facility] D-DIMERon 11-16-2021 D-DIMER 2.02 mg/L FEU Critically high <=0.59 [facility] Comment on above: Performed By: #### D DIM ####[facility] [address] [place] [id number] Gonzalez D-DIMER COMMENTS SEE BELOW Normal [facility] Comment on above: Result Comment: Incr [...] generalized hospitalization. Performed By: #### D DIM ####[facility] [address] [place] [phone] Gonzalez Determination of appearance of body fluidOrdered By: Carlton Mtz on 11-16-2021 Appearance (Body fld) Cloudy [facility] Comment on above: The reference interv al and other method performance specifications have not been established for this body fluid. The test result must be integrated into the clinical context for interpretation. Direct bilirubin measurement Ordered By: Carlton Mtz on 11-16-2021 Bilirubin.direct [Mass/Vol] 0.1 mg/dL 0.0-0.4 [facility] Erythrocytes [#/volume] in P leural fluid by Automated countOrdered By: Carlton Mtz on 11-16-2021 RBC Auto (Pleur fld) [#/Vol] See comment [facility] Comment on above: Unable to accurately quantitiate cells due to clotting, clumping, debris etc. The reference interval and other method performance specifications have not been established for this body fluid. The test result must be integrated into the clinical context for interpretation. Evaluation of color of body fluidOrdered By: Carlton Mtz on 11-16-2021 Color (Body fld) Yellow [facility] Comment on above: The reference interv al and other method performance specifications have not been established for this body fluid. The test result must be integrated into the clinical context for interpretation. Globulin Calc (S) [Mass/Vol] Ordered By: Carlton Mtz on 11-16-2021 Globulin (S) [Mass/Vol] 3.1 g/dL F [facility] Glucose mean value [Mass/vol ume] in Blood Estimated from glycated hemoglobinOrdered By: Carlton Mtz on 11-16-2021 Average glucose Estimated from glycated hemoglobin (Bld) [Mass/Vol] 160 mg/dL [facility] Hemoglobin A1c percentageOrd ered By: Carlton Mtz on 11-16-2021 HbA1c (Bld) [Mass fraction] 7.2 % 4.3-5.6 [facility] Comment on above: Increased risk for d iabetes: 5.7 - 6.4diabetes: >6.4glycemic control for adults with diabetes: <7.0 Laboratory - Chemistry and C hemistry - challengeOrdered By: Carlton Mtz on 11-16-2021 Natriuretic peptide B (Bld) [Mass/Vol] 1064.0 pg/mL 5-100 [facility] Laboratory - CoagulationOrde red By: Carlton Mtz on 11-16-2021 PT Coag (PPP) [Time] 14.2 s 9.0-12.9 [facility] Lactate dehydrogenase measur ement (enzymatic activity/volume)Ordered By: Carlton Mtz on 11-16-2021 LDH (Unsp spec) [Catalytic activity/Vol] 80 [IU]/mL [facility] Comment on above: No reference range e stablished Manual body fluid eosinophil s/100 leukocytesOrdered By: Carlton Mtz on 11-16-2021 Eosinophils/100 WBC Manual cnt (Body fld) 0 /100{WBC} 0-3 [facility] Manual body fluid lymphocyte s/100 leukocytesOrdered By: Carlton Mtz on 11-16-2021 Lymphocytes/100 WBC Manual cnt (Body fld) 40 % [facility] Comment on above: The reference interv al and other method performance specifications have not been established for this body fluid. The test result must be integrated into the clinical context for interpretation. Neutrophils/100 WBC Manual c nt (Body fld)Ordered By: Carlton Mtz on 11-16-2021 Neutrophils/100 WBC (Body fld) 20 % [facility] Comment on above: The reference interv al and other method performance specifications have not been established for this body fluid. The test result must be integrated into the clinical context for interpretation. PROF CHEM 8 (BAS METB)on Anion gap [Moles/Vol] 14.8 mmol/L Normal [facility] Comment on above: Performed By: #### CHELSI MOY ####[facility] [address] [place] [address]Dr. Marlin Gonzalez Calcium [Mass/Vol] 9.3 mg/dL Normal 8.5-10.1 [facility] Comment on above: Performed By: #### CHELSI MOY ####[facility] [address] [place] [address]Dr. Marlin Gonzalez Chloride [Moles/Vol] 98 mmol/L Normal 98-107 [facility] Comment on above: Performed By: #### CHELSI MOY ####[facility] [address] [place] [address]Dr. Katherinelan Gonzalez CO2 [Moles/Vol] 24.8 mmol/L Normal 21.0-32.0 [facility] Comment on above: Performed By: #### Tara MCCARTHY BMP ####[facility] H[address]oqaq[address] [place], [place] [address]Dr. Marlin Gonzalez Creatinine [Mass/Vol] 3.67 mg/dL Critically high 0.55-1.02 [facility] Comment on above: Performed By: #### C SHARI, BMP ####[facility] [address]icbr[address] [place], [place] [address]Dr. Marlin Gonzalez EGFR-AF AFGHAN 15 mL/min/1.73m2 Critically low >=60 [facility] Comment on above: Performed By: #### C SHARI, BMP ####[facility] [address]nrj[address] [place], [place] [address]Dr. Marlin Gonzalez EGFR-NON AF AFGHAN 12 mL/min/1.73m2 Critically low >=60 [facility] Comment on above: Performed By: #### C SHARI, BMP ####[facility] [address]ieymelq[address] [place], [place] [address]Dr. Marlin Gonzalez Glucose [Mass/Vol] 178 mg/dL Critically high 74-106 [facility] Comment on above: Performed By: #### C SHARI, BMP ####[facility] [address] [place], [place] [address]Dr. Marlin Gonzalez Potassium [Moles/Vol] 4.6 mmol/L Normal 3.5-5.1 [facility] Comment on above: Performed By: #### C SHARI, BMP ####[facility] Dpwdtudmjq[address] [place], [place] [address]Dr. Marlin Gonzalez Sodium [Moles/Vol] 133 mmol/L Critically low 136-145 [facility] Comment on above: Performed By: #### C SHARI, BMP ####[facility] [address]wo[address] [place], [place] [address]Dr. Marlin Gonzalez Urea nitrogen [Mass/Vol] 85.0 mg/dL Critically high 7.0-18.0 [facility] Comment on above: Performed By: #### C SHARI, BMP ####[facility] Pxxzy[address] [place], [place] [address]Dr. Marlin Gonzalez Urea nitrogen/Creatinine [Mass ratio] 23.2 mg/mg Normal [facility] Comment on above: Performed By: #### C MADM, BMP ####[facility] [address] [place] [address]Dr. Marlin Gonzalez PROTIMEon 11-16-2021 INR Coag (PPP) [Relative time] 1.06 {INR} Normal [facility] Comment on above: Performed By: #### P T, PTT ####[facility] Trawwvmx[address] [place], [place] [address]Dr. Marlin Gonzalez INR GUIDELINES SEE BELOW Normal [facility] Comment on above: Result Comment: WALI RED INR: 2.0 - 3.0 CONDITIONS NOT LISTED BELOW 2.5 - 3.5 FOR PROSTHETIC HEART VALVE REPLACEMENT 2.5 - 3.5 RECURRENT THROMBOSIS Performed By: #### P T, PTT ####[facility] [address] [place], [place] [address]Dr. Marlin Gonzalez PT Coag (PPP) [Time] 11.4 s Normal 9.0-11.6 [facility] Comment on above: Performed By: #### P T, PTT ####[facility] [address] [place], [place] [address]Dr. Marlin Gonzalez PTTon 11-16-2021 aPTT Coag (Bld) [Time] 30.5 s Normal 22.3-36.2 [facility] Comment on above: Performed By: #### P T, PTT ####[facility] Esqxqifnin[address] [place], [place] [address]Dr. Marlin Gonzalez Platelet poor plasma interna tional normalized ratio (INR) by coagulation assay (relatOrdered By: Carlton Mtz on 11-16-2021 INR Coag (PPP) [Relative time] 1.3 {INR} [facility] Comment on above: INR Therapeutic [...] on 11-16-2021 Protein [Mass/Vol] 5.7 g/dL 6.1-7.9 [facility] Serum or plasma alanine iqbal otransferase measurement without P-5'-P (enzymatic activiOrdered By: Carlton Mtz on 11-16-2021 ALT No additional P-5'-P [Catalytic activity/Vol] 37 U/L 1060 [facility] Serum or plasma albumin/glob ulin mass ratioOrdered By: Carlton Mtz on 11-16-2021 Albumin/Globulin [Mass ratio] 0.8 {ratio} [facility] Serum or plasma alkaline fidel sphatase measurement (enzymatic activity/volume)Ordered By: Carlton Mtz on 11-16-2021 ALP [Catalytic activity/Vol] 85 U/L 32-92 [facility] Serum or plasma aspartate am inotransferase measurement (enzymatic activity/volume)Ordered By: Carlton Mtz on 11-16-2021 AST [Catalytic activity/Vol] 34 U/L 10 [facility] Serum or plasma creatine kin ase MB (CKMB)/total creatine kinase (CK) ratio by calculaOrdered By: Carlton Mtz on 11-16-2021 CK.MB Calc [Catalytic fraction] 4.5 % 0.00-2.50 [facility] Serum or plasma creatine kin ase MB measurement (mass/volume)Ordered By: Carlton Mtz on 11-16-2021 CK.MB [Mass/Vol] 13.0 ng/mL 0.6-6.3 [facility] Serum or plasma non-glucuron idated bilirubin measurement (mass/volume)Ordered By: Carlton Mtz on 11-16-2021 Bilirubin.indirect [Mass/Vol] 0.4 mg/dL [facility] Serum or plasma total biliru bin measurement (mass/volume)Ordered By: Carlton Mtz on 11-16-2021 Bilirubin [Mass/Vol] 0.5 mg/dL 0.3-1.2 [facility] XR CHEST 1 Von 11-16-2021 XR CHEST 1 V Normal [facility] CBC AUTO DIFFon 11-12-2021 BASO # 0.0 103/ul Normal 0.0-0.1 [facility] Comment on above: Performed By: #### C BC ####[facility] [address] [place] [address]Dr. Marlin Gonzalez Basophils/100 WBC (Bld) 0.5 % Normal 0.2-2.0 [facility] Comment on above: Performed By: #### C BC ####[facility] Ly[address]ysanwb[address] [place], [place] [address]Dr. Marlin Gonzalez EO # 0.4 103/ul Normal 0.0-0.7 [facility] Comment on above: Performed By: #### C BC ####[facility] Kwenbdzaru[address] [place], [place] [address]Dr. Marlin Gonzalez Eosinophils/100 WBC (Bld) 6.2 % Normal 0.9-7.0 [facility] Comment on above: Performed By: #### C BC ####[facility] Bdegtlgann[address] [place], [place] [address]Dr. Marlin Gonzalez Erythrocyte distribution width (RBC) [Ratio] 14.8 % Normal 11.0-15.0 [facility] Comment on above: Performed By: #### C BC ####[facility] H[address] [place], [place] [address]Dr. Marlin Gonzalez Hematocrit (Bld) [Volume fraction] 26.7 % Critically low 36.0-48.0 [facility] Comment on above: Performed By: #### C BC ####[facility] [address] [place], [place] [address]Dr. Marlin Gonzalez Hemoglobin (Bld) [Mass/Vol] 8.4 g/dL Critically low 12.0-16.0 [facility] Comment on above: Performed By: #### C BC ####[facility] [address] [place], [place] [address]Dr. Marlin Gonzalez IG # 0.02 10e3/ul Normal 0.00-0.03 [facility] Comment on above: Performed By: #### C BC ####[facility] [address] [place] [phone]. Marlin Gonzalez IG % 0.3 % Normal 0.0-0.5 [facility] Comment on above: Performed By: #### C BC ####[facility] [address] [place] [phone]. Marlin Gonzalez LYMPH # 1.3 103/ul Normal 1.2-3.8 [facility] Comment on above: Performed By: #### C BC ####[facility] [address] [place] [phone]. Marlin Gonzalez Lymphocytes/100 WBC (Bld) 21.2 % Normal 20.5-60.0 [facility] Comment on above: Performed By: #### C BC ####[facility] [address]fe[address]awhc[address] [place], [place] [address]Dr. Marlin Gonzalez MANUAL DIFF REQ NO Normal [facility] Comment on above: Performed By: #### C BC ####[facility] [address] [place], [place] [address]Dr. Marlin Gonzalez MCH (RBC) [Entitic mass] 29.7 pg Normal 26.7-34.0 [facility] Comment on above: Performed By: #### C BC ####[facility] [address] [place] [phone]. Marlin Gonzalez MCHC (RBC) [Mass/Vol] 31.5 g/dL Normal 29.9-35.2 [facility] Comment on above: Performed By: #### C BC ####[facility] [address] [place], [place] [address]Dr. Marlin Gonzalez MCV (RBC) [Entitic vol] 94.3 fL Normal 81.0-99.0 [facility] Comment on above: Performed By: #### C BC ####[facility] [address] [place] [phone]. Marlin Carlos MONO # 0.8 103/ul Normal 0.3-0.8 [facility] Comment on above: Performed By: #### C BC ####[facility] [address] [place] [phone]. Marlin Gonzalez Monocytes/100 WBC (Bld) 13.1 % Critically high 1.7-12. 0 [facility] Comment on above: Performed By: #### C BC ####[facility] [address] [place] [phone]. Marlin Gonzalez NEUT # 3.6 103/ul Normal 1.4-6.5 [facility] Comment on above: Performed By: #### C BC ####[facility] [address] [place] [phone]. Marlin Gonzalez Neutrophils/100 WBC (Bld) 58.7 % Normal 43.0-75.0 [facility] Comment on above: Performed By: #### C BC ####[facility] [address] [place] [phone]. Marlin Gonzalez Platelet mean volume (Bld) [Entitic vol] 9.6 fL Normal 9.5-13.5 [facility] Comment on above: Performed By: #### C BC ####[facility] [address]oun[address] [place] [phone]. Marlin Gonzalez PLT 274 103/ul Normal 150-450 [facility] Comment on above: Performed By: #### C BC ####[facility] [address]ua[address] [place] [phone]. Marlin Gonzalez RBC 2.83 106/ul Critically low 4.20-5.40 [facility] Comment on above: Performed By: #### C BC ####[facility] [address] [place], [place] [address]Dr. Marlin Gonzalez WBC 6.1 103/ul Normal 4.0-11.0 [facility] Comment on above: Performed By: #### C BC ####[facility] [address]wwaunv[address] [place], [place] [address]Dr. Marlin Gonzalez PH, BODY FLUIDon 11-12-2021 pH, Body Fluid 7.6 Normal Not Estab. [facility] Comment on above: Result Comment: The reference interval(s) and other method performance specificationshave not been established for this body fluid. The test result must beintegrated into the clinical context for interpretation. Performed By: #### B DYFLPH ####[facility] [address]qcncj[address] [place], [place] [address]Dr. Marlin Gonzalez POINT OF CARE GLUCOSEon 10-0 Glucose [Mass/Vol] 245 mg/dL Critically high 74-106 [facility] Comment on above: Performed By: #### P OCGLUC ####[facility] Ftegybrnwm242[address] [place], [place] [address]Dr. Marlin Gonzalez PROF CHEM 8 (BAS METB)on Anion gap [Moles/Vol] 13.4 mmol/L Normal [facility] Comment on above: Performed By: #### B MP ####[facility] [address]pt[address]wofbd[address] [place], [place] [address]Dr. Marlin Gonzalez Calcium [Mass/Vol] 8.4 mg/dL Critically low 8.5-10.1 [facility] Comment on above: Performed By: #### B MP ####[facility] [address]axqwrjb[address] [place], [place] [address]Dr. Marlin Gonzalez Chloride [Moles/Vol] 101 mmol/L Normal 98-107 [facility] Comment on above: Performed By: #### B MP ####[facility] Xecus[address] [place], [place] [address]Dr. Marlin Gonzalez CO2 [Moles/Vol] 26.2 mmol/L Normal 21.0-32.0 [facility] Comment on above: Performed By: #### B MP ####[facility] Getpzypskh[address] [place], [place] [address]Dr. Marlin Gonzalez Creatinine [Mass/Vol] 2.87 mg/dL Critically high 0.55-1.02 [facility] Comment on above: Performed By: #### B MP ####[facility] Tasxqylsnw[address] [place], [place] [address]Dr. Marlin Gonzalez EGFR-AF AFGHAN 19 mL/min/1.73m2 Critically low >=60 [facility] Comment on above: Performed By: #### B MP ####[facility] [address] [place] [phone]. Marlin Carlos EGFR-NON AF AFGHAN 16 mL/min/1.73m2 Critically low >=60 [facility] Comment on above: Performed By: #### B MP ####[facility] [address]imtz4[address] [place] [phone]. Marlin Gonzalez Glucose [Mass/Vol] 137 mg/dL Critically high 74-106 [facility] Comment on above: Performed By: #### B MP ####[facility] [address] [place] [address]Dr. Marlni Gonzalez Potassium [Moles/Vol] 3.6 mmol/L Normal 3.5-5.1 [facility] Comment on above: Performed By: #### B MP ####[facility] [address]upgahi[address] [place], [place] [address]Dr. Marlin Gonzalez Sodium [Moles/Vol] 137 mmol/L Normal 136-145 [facility] Comment on above: Performed By: #### B MP ####[facility] [address] [place] [address]Dr. Marlin Gonzalez Urea nitrogen [Mass/Vol] 73.0 mg/dL Critically high 7.0-18.0 [facility] Comment on above: Performed By: #### B MP ####[facility] [address]nisbefuyg[address] [place], [place] [address]Dr. Marlin Gonzalez Urea nitrogen/Creatinine [Mass ratio] 25.4 mg/mg Normal [facility] Comment on above: Performed By: #### B MP ####[facility] [address]wfxjxt[address] [place], [place] [address]Dr. Marlin Gonzalez CBC AUTO DIFFon 11-11-2021 BASO # 0.0 103/ul Normal 0.0-0.1 [facility] Comment on above: Performed By: #### C BC ####[facility] [address] [place] [address]Dr. Marlin Gonzalez Basophils/100 WBC (Bld) 0.3 % Normal 0.2-2.0 [facility] Comment on above: Performed By: #### C BC ####[facility] [address] [place] [phone]. Marlin Gonzalez EO # 0.4 103/ul Normal 0.0-0.7 [facility] Comment on above: Performed By: #### C BC ####[facility] [address] [place] [address]Dr. Marlin Gonzalez Eosinophils/100 WBC (Bld) 5.5 % Normal 0.9-7.0 [facility] Comment on above: Performed By: #### C BC ####[facility] [address] [place], [place] [address]Dr. Marlin Gonzalez Erythrocyte distribution width (RBC) [Ratio] 14.6 % Normal 11.0-15.0 [facility] Comment on above: Performed By: #### C BC ####[facility] Qvvcdlaugg[address] [place], [place] [address]Dr. Marlin Gonzalez Hematocrit (Bld) [Volume fraction] 26.4 % Critically low 36.0-48.0 [facility] Comment on above: Performed By: #### C BC ####[facility] [address]ousrtr[address] [place], [place] [address]Dr. Marlin Gonzalez Hemoglobin (Bld) [Mass/Vol] 8.4 g/dL Critically low 12.0-16.0 [facility] Comment on above: Performed By: #### C BC ####[facility] [address]ftneenka[address] [place], [place] [address]Dr. Marlin Gonzalez IG # 0.03 10e3/ul Normal 0.00-0.03 [facility] Comment on above: Performed By: #### C BC ####[facility] [address] [place], [place] [address]Dr. Marlin Gonzalez IG % 0.4 % Normal 0.0-0.5 [facility] Comment on above: Performed By: #### C BC ####[facility] Domisbkpgb[address] [place], [place] [address]Dr. Katherinearmando Gonzalez LYMPH # 1.2 103/ul Normal 1.2-3.8 [facility] Comment on above: Performed By: #### C BC ####[facility] [address] [place] [phone]. Marlin Carlos Lymphocytes/100 WBC (Bld) 16.5 % Critically low 20.5-60.0 [facility] Comment on above: Performed By: #### C BC ####[facility] [address] [place] [phone]. Marlin Gonzalez MANUAL DIFF REQ NO Normal [facility] Comment on above: Performed By: #### C BC ####[facility] [address]ow[address] [place] [phone]. Katherinearmando Gonzalez MCH (RBC) [Entitic mass] 30.0 pg Normal 26.7-34.0 [facility] Comment on above: Performed By: #### C BC ####[facility] [address]qr[address] [place], [place] [address]Dr. Marlin Gonzalez MCHC (RBC) [Mass/Vol] 31.8 g/dL Normal 29.9-35.2 [facility] Comment on above: Performed By: #### C BC ####[facility] Azimytlezw[address] [place], [place] [id number]. Marlin Gonzalez MCV (RBC) [Entitic vol] 94.3 fL Normal 81.0-99.0 [facility] Comment on above: Performed By: #### C BC ####[facility] Bxeyifgkrz[address] [place], [place] [address]Dr. Marlin Gonzalez MONO # 0.8 103/ul Normal 0.3-0.8 [facility] Comment on above: Performed By: #### C BC ####[facility] Xvpnzqupxl97[address] [place], [place] [address]Dr. Marlin Gonzalez Monocytes/100 WBC (Bld) 11.4 % Normal 1.7-12.0 [facility] Comment on above: Performed By: #### C BC ####[facility] Cmypfehifv[address] [place], [place] [address]Dr. Marlin Gonzalez NEUT # 4.7 103/ul Normal 1.4-6.5 [facility] Comment on above: Performed By: #### C BC ####[facility] Zrjbwjblly[address] [place] [phone]. Marlin Gonzalez Neutrophils/100 WBC (Bld) 65.9 % Normal 43.0-75.0 [facility] Comment on above: Performed By: #### C BC ####[facility] Mowsnblshl75[address] [place] [phone]. Marlin Gonzalez Platelet mean volume (Bld) [Entitic vol] 9.7 fL Normal 9.5-13.5 [facility] Comment on above: Performed By: #### C BC ####[facility] Vuwotexxum5435 [place] [phone]. Marlin Gonzalez PLT 254 103/ul Normal 150-450 [facility] Comment on above: Performed By: #### C BC ####[facility] Dkwiibntgo4[address] [place] [address]Dr. Marlin Gonzalez RBC 2.80 106/ul Critically low 4.20-5.40 [facility] Comment on above: Performed By: #### C BC ####[facility] Weljtfgmsp2435 [place] [phone]. Marlin Gonzalez WBC 7.1 103/ul Normal 4.0-11.0 [facility] Comment on above: Performed By: #### C BC ####[facility] Zkxbwwdxkw8284 [place] [phone]. Marlin Gonzalez POINT OF CARE GLUCOSEon 10-0 Glucose [Mass/Vol] 137 mg/dL Critically high 74-106 [facility] Comment on above: Performed By: #### P OCGLUC ####[facility] Uagntyfdoc5333 [place] [phone]. Marlin Gonzalez Glucose [Mass/Vol] 144 mg/dL Critically high -106 [facility] Comment on above: Performed By: #### P OCGLUC ####[facility] Qibdksruon7862 [place] [phone]. Marlin Gonzalez Glucose [Mass/Vol] 217 mg/dL Critically high -106 [facility] Comment on above: Performed By: #### P OCGLUC ####[facility] Lzygdwynus[address] [place] [address]Dr. Marlin Gonzalez PROF CHEM 8 (BAS METB)on Anion gap [Moles/Vol] 12.0 mmol/L Normal [facility] Comment on above: Performed By: #### B MP ####[facility] Npdyeulvjo249[address] [place], [place] [address]Dr. Marlin Gonzalez Calcium [Mass/Vol] 8.5 mg/dL Normal 8.5-10.1 [facility] Comment on above: Performed By: #### B MP ####[facility] Wgqdbummac969[address] [place], [place] [address]Dr. Marlin Gonzalez Chloride [Moles/Vol] 100 mmol/L Normal 98-107 [facility] Comment on above: Performed By: #### B MP ####[facility] Qcfarsvzxm569[address] [place], [place] [address]Dr. Marlin Gonzalez CO2 [Moles/Vol] 25.5 mmol/L Normal 21.0-32.0 [facility] Comment on above: Performed By: #### B MP ####[facility] Aiatldgsns332[address] [place], [place] [address]Dr. Marlin Gonzalez Creatinine [Mass/Vol] 2.94 mg/dL Critically high 0.55-1.02 [facility] Comment on above: Performed By: #### B MP ####[facility] Jaflinlbco[address] [place], [place] [address]Dr. Marlin Gonzalez EGFR-AF AFGHAN 19 mL/min/1.73m2 Critically low >=60 [facility] Comment on above: Performed By: #### B MP ####[facility] Bkmruxzpqv85[address] [place], [place] [address]Dr. Marlin Gonzalez EGFR-NON AF AFGHAN 16 mL/min/1.73m2 Critically low >=60 [facility] Comment on above: Performed By: #### B MP ####[facility] Ujuzqkukur39[address] [place], [place] [address]Dr. Marlin Gonzalez Glucose [Mass/Vol] 162 mg/dL Critically high 74-106 [facility] Comment on above: Performed By: #### B MP ####[facility] Imlojvatta2930[address] [place], [place] [address]Dr. Marlin Gonzalez Potassium [Moles/Vol] 3.5 mmol/L Normal 3.5-5.1 [facility] Comment on above: Performed By: #### B MP ####[facility] Yyfiovhsbp940[address] [place], [place] [address]Dr. Marlin Gonzalez Sodium [Moles/Vol] 134 mmol/L Critically low 136-145 [facility] Comment on above: Performed By: #### B MP ####[facility] Wqziqmbsxj9220[address] [place], [place] [address]Dr. Marlin Gonzalez Urea nitrogen [Mass/Vol] 78.0 mg/dL Critically high 7.0-18.0 [facility] Comment on above: Performed By: #### B MP ####[facility] Pellzexmpr329[address] [place], [place] [address]Dr. Marlin Gonzalez Urea nitrogen/Creatinine [Mass ratio] 26.5 mg/mg Normal [facility] Comment on above: Performed By: #### B MP ####[facility] Vroyholbpz9316[address] [place], [place] [address]Dr. Marlin Gonzalez CBC AUTO DIFFon 11-10-2021 BASO # 0.0 103/ul Normal 0.0-0.1 [facility] Comment on above: Performed By: #### C BC ####[facility] Esorkyhjfn5210[address] [place], [place] [address]Dr. Marlin Gonzalez Basophils/100 WBC (Bld) 0.4 % Normal 0.2-2.0 [facility] Comment on above: Performed By: #### C BC ####[facility] Aqzwiywzji5714[address] [place], [place] [address]Dr. Marlin Gonzalez EO # 0.4 103/ul Normal 0.0-0.7 [facility] Comment on above: Performed By: #### C BC ####[facility] Fmqfmxsvun7487[address] [place], [place] [address]Dr. Marlin Gonzalez Eosinophils/100 WBC (Bld) 5.3 % Normal 0.9-7.0 [facility] Comment on above: Performed By: #### C BC ####[facility] Sxmzhryltt958[address] [place], [place] [address]Dr. Marlin Gonzalez Erythrocyte distribution width (RBC) [Ratio] 14.5 % Normal 11.0-15.0 [facility] Comment on above: Performed By: #### C BC ####[facility] Tkowgpqfnn222[address] [place], [place] [address]Dr. Marlin Gonzalez Hematocrit (Bld) [Volume fraction] 26.9 % Critically low 36.0-48.0 [facility] Comment on above: Performed By: #### C BC ####[facility] Jbsbczgnzc0639[address] [place], [place] [address]Dr. Marlin Gonzalez Hemoglobin (Bld) [Mass/Vol] 8.6 g/dL Critically low 12.0-16.0 [facility] Comment on above: Performed By: #### C BC ####[facility] Myqoqryqhi6917[address] [place], [place] [address]Dr. Marlin Gonzalez IG # 0.03 10e3/ul Normal 0.00-0.03 [facility] Comment on above: Performed By: #### C BC ####[facility] Rlixawwhem1911[address] [place], [place] [address]Dr. Marlin Gonzaelz IG % 0.4 % Normal 0.0-0.5 [facility] Comment on above: Performed By: #### C BC ####[facility] Lckllhnvpj659[address] [place], [place] [address]Dr. Marlin Gonzalez LYMPH # 1.2 103/ul Normal 1.2-3.8 [facility] Comment on above: Performed By: #### C BC ####[facility] Cqnanedsey39[address] [place], [place] [address]Dr. Marlin Gonzalez Lymphocytes/100 WBC (Bld) 15.0 % Critically low 20.5-60.0 [facility] Comment on above: Performed By: #### C BC ####[facility] Bebrphwesm6895[address] [place], [place] [address]Dr. Marlin Gonzalez MANUAL DIFF REQ NO Normal [facility] Comment on above: Performed By: #### C BC ####[facility] Msuhqzwgbp7109[address] [place], [place] [address]Dr. Marlin Gonzalez MCH (RBC) [Entitic mass] 30.2 pg Normal 26.7-34.0 [facility] Comment on above: Performed By: #### C BC ####[facility] Oxrlrhtrxz6929[address] [place], [place] [address]DrLucia Gonzalez MCHC (RBC) [Mass/Vol] 32.0 g/dL Normal 29.9-35.2 [facility] Comment on above: Performed By: #### C BC ####[facility] Cldhkrvkpu9139[address] [place], [place] [address]DrLucia Gonzalez MCV (RBC) [Entitic vol] 94.4 fL Normal 81.0-99.0 [facility] Comment on above: Performed By: #### C BC ####[facility] Azthiseabj24[address] [place], [place] [address]DrLucia Gonzalez MONO # 0.6 103/ul Normal 0.3-0.8 [facility] Comment on above: Performed By: #### C BC ####[facility] Mfuydfcdjj[address] [place], [place] [address]DrLucia Gonzalez Monocytes/100 WBC (Bld) 8.3 % Normal 1.7-12.0 [facility] Comment on above: Performed By: #### C BC ####[facility] Ncionbnrvt5811[address] [place], [place] [address]DrLucia Gonzalez NEUT # 5.4 103/ul Normal 1.4-6.5 [facility] Comment on above: Performed By: #### C BC ####[facility] Ekxcochpkv9347[address] [place], [place] [address]DrLucia Gonzalez Neutrophils/100 WBC (Bld) 70.6 % Normal 43.0-75.0 [facility] Comment on above: Performed By: #### C BC ####[facility] Uzntgcrsjr9[address] [place], [place] [address]DrLucia Gonzalez Platelet mean volume (Bld) [Entitic vol] 9.6 fL Normal 9.5-13.5 [facility] Comment on above: Performed By: #### C BC ####[facility] [address]zxhnskk[address] [place] [address]Dr. Marlin Gonzalez PLT 239 103/ul Normal 150-450 [facility] Comment on above: Performed By: #### C BC ####[facility] Kqhgbgvtdt27[address] [place] [address]Dr. Marlin Gonzalez RBC 2.85 106/ul Critically low 4.20-5.40 [facility] Comment on above: Performed By: #### C BC ####[facility] Rxfldpvxqm6850 [place] [address]Dr. Marlin Gonzalez WBC 7.7 103/ul Normal 4.0-11.0 [facility] Comment on above: Performed By: #### C BC ####[facility] Qplkcqrthe8545 [place] [address]DrLucia Marlin Carlos POINT OF CARE GLUCOSEon Glucose [Mass/Vol] 196 mg/dL Critically high 74-106 [facility] Comment on above: Performed By: #### P OCGLUC ####[facility] Zghmresxre2[address] [place] [address]Dr. Marlin Gonzalez Glucose [Mass/Vol] 211 mg/dL Critically high 74-106 [facility] Comment on above: Performed By: #### P OCGLUC ####[facility] Cnhexvcipu4347 [place] [address]Dr. Marlin Gonzalez Glucose [Mass/Vol] 235 mg/dL Critically high 74-106 [facility] Comment on above: Performed By: #### P OCGLUC ####[facility] Hbcrsrubvp[address] [place], [place] [address]DrLucia Marlin Carlos PROF CHEM 8 (BAS METB)on Anion gap [Moles/Vol] 11.2 mmol/L Normal [facility] Comment on above: Performed By: #### B MP ####[facility] Yqlbbuurix18[address] [place] [address]Dr. Marlin Gonzalez Calcium [Mass/Vol] 8.2 mg/dL Critically low 8.5-10.1 [facility] e [facility] Comment on above: Performed By: #### B MP ####[facility] Vqmwymsvdy13[address] [place], [place] [address]Dr. Marlin Gonzalez Chloride [Moles/Vol] 100 mmol/L Normal 98-107 [facility] Comment on above: Performed By: #### B MP ####[facility] Fhtjxhnypl54[address] [place], [place] [address]Dr. Marlin Gonzalez CO2 [Moles/Vol] 26.4 mmol/L Normal 21.0-32.0 [facility] Comment on above: Performed By: #### B MP ####[facility] Pdffhjolqa317[address] [place], [place] [address]Dr. Marlin Gonzalez Creatinine [Mass/Vol] 3.13 mg/dL Critically high 0.55-1.02 [facility] Comment on above: Performed By: #### B MP ####[facility] Esfuwlwrnt647[address] [place], [place] [address]Dr. Marlin Gonzalez EGFR-AF AFGHAN 18 mL/min/1.73m2 Critically low >=60 [facility] Comment on above: Performed By: #### B MP ####[facility] Yswuabmkiu15[address] [place], [place] [address]Dr. Marlin Gonzalez EGFR-NON AF AFGHAN 15 mL/min/1.73m2 Critically low >=60 [facility] Comment on above: Performed By: #### B MP ####[facility] Rfeopcmbes16[address] [place], [place] [address]Dr. Marlin Gonzalez Glucose [Mass/Vol] 139 mg/dL Critically high 74-106 [facility] Comment on above: Performed By: #### B MP ####[facility] Fbcltaliji[address] [place], [place] [address]Dr. Marlin Gonzalez Potassium [Moles/Vol] 3.6 mmol/L Normal 3.5-5.1 [facility] Comment on above: Performed By: #### B MP ####[facility] Untlhiuszw8226 [place] [phone]. Marlin Gonzalez Sodium [Moles/Vol] 134 mmol/L Critically low 136-145 [facility] Comment on above: Performed By: #### B MP ####[facility] Xmgxtkrluq970[address] [place], [place] [address]Dr. Marlin Gonzalez Urea nitrogen [Mass/Vol] 84.0 mg/dL Critically high 7.0-18.0 [facility] Comment on above: Performed By: #### B MP ####[facility] Bsghwghwfa824[address] [place], [place] [address]Dr. Marlin Gonzalez Urea nitrogen/Creatinine [Mass ratio] 26.8 mg/mg Normal [facility] Comment on above: Performed By: #### B MP ####[facility] Xwkrzktopg114[address] [place], [place] [address]Dr. Marlin Gonzalez CBC AUTO DIFFon 11-09-2021 BASO # 0.0 103/ul Normal 0.0-0.1 [facility] Comment on above: Performed By: #### C BC ####[facility] Orirjnnftl946[address] [place], [place] [address]Dr. Marlin Carlos Basophils/100 WBC (Bld) 0.2 % Normal 0.2-2.0 [facility] Comment on above: Performed By: #### C BC ####[facility] Fovldsoidh2260[address] [place], [place] [address]Dr. Marlin Gonzalez EO # 0.5 103/ul Normal 0.0-0.7 [facility] Comment on above: Performed By: #### C BC ####[facility] Uwhgbhyrup05[address] [place], [place] [address]Dr. Marlin Gonzalez Eosinophils/100 WBC (Bld) 7.3 % Critically high 0.9-7.0 [facility] Comment on above: Performed By: #### C BC ####[facility] Rouccojnrk550[address] [place], [place] [address]Dr. Marlin Gonzalez Erythrocyte distribution width (RBC) [Ratio] 14.5 % Normal 11.0-15.0 [facility] Comment on above: Performed By: #### C BC ####[facility] Xhxtskxgnv4582 [place] [address]Dr. Katherinearmando Gonzalez Hematocrit (Bld) [Volume fraction] 26.5 % Critically low 36.0-48.0 [facility] Comment on above: Performed By: #### C BC ####[facility] Hstxyiplmh[address] [place], [place] [address]Dr. Marlin Gonzaelz Hemoglobin (Bld) [Mass/Vol] 8.3 g/dL Critically low 12.0-16.0 [facility] Comment on above: Performed By: #### C BC ####[facility] Ucvodedfcf2767[address] [place], [place] [address]Dr. Marlin Gonzalez IG # 0.02 10e3/ul Normal 0.00-0.03 [facility] Comment on above: Performed By: #### C BC ####[facility] Ksdkglaerg645[address] [place], [place] [address]Dr. Marlin Gonzalez IG % 0.3 % Normal 0.0-0.5 [facility] Comment on above: Performed By: #### C BC ####[facility] Sllzvgrded5[address] [place], [place] [address]Dr. Marlin Gonzalez LYMPH # 1.1 103/ul Critically low 1.2-3.8 [facility] Comment on above: Performed By: #### C BC ####[facility] Ljwdheohnq264[address] [place], [place] [address]Dr. Marlin Gonzalez Lymphocytes/100 WBC (Bld) 17.4 % Critically low 20.5-60.0 [facility] Comment on above: Performed By: #### C BC ####[facility] Gtndjvswtl[address] [place], [place] [address]Dr. Marlin Gonzalez MANUAL DIFF REQ NO Normal [facility] Comment on above: Performed By: #### C BC ####[facility] Qfsjvkiopk655[address] [place], [place] [address]Dr. Marlin Gonzalez MCH (RBC) [Entitic mass] 29.5 pg Normal 26.7-34.0 [facility] Comment on above: Performed By: #### C BC ####[facility] Alhdyfswju4[address] [place] [phone]. Marlin Carlos MCHC (RBC) [Mass/Vol] 31.3 g/dL Normal 29.9-35.2 [facility] Comment on above: Performed By: #### C BC ####[facility] Pjniifmhjs3458 [place] [phone]. Marlin Gonzalez MCV (RBC) [Entitic vol] 94.3 fL Normal 81.0-99.0 [facility] Comment on above: Performed By: #### C BC ####[facility] Ofmealwena7[address] [place], [place] [address]Dr. Marlin Gonzalez MONO # 0.6 103/ul Normal 0.3-0.8 [facility] Comment on above: Performed By: #### C BC ####[facility] Yfnmdrrafm824[address] [place], [place] [address]Dr. Marlin Gonzalez Monocytes/100 WBC (Bld) 9.1 % Normal 1.7-12.0 [facility] Comment on above: Performed By: #### C BC ####[facility] Vgvqimvfcf26[address] [place], [place] [address]Dr. Marlin Gonzalez NEUT # 4.1 103/ul Normal 1.4-6.5 [facility] Comment on above: Performed By: #### C BC ####[facility] Rwoyvjjvyf57[address] [place], [place] [address]Dr. Marlin Gonzalez Neutrophils/100 WBC (Bld) 65.7 % Normal 43.0-75.0 [facility] Comment on above: Performed By: #### C BC ####[facility] Ujhgninuad0817[address] [place], [place] [address]Dr. Marlin Gonzalez Platelet mean volume (Bld) [Entitic vol] 9.8 fL Normal 9.5-13.5 [facility] Comment on above: Performed By: #### C BC ####[facility] Cdmkjqabht22[address] [place], [place] [address]Dr. Marlin Gonzalez PLT 209 103/ul Normal 150-450 [facility] Comment on above: Performed By: #### C BC ####[facility] Mlroceqhab6768 [place] [phone]. Marlin Gonzalez RBC 2.81 106/ul Critically low 4.20-5.40 [facility] Comment on above: Performed By: #### C BC ####[facility] Ovdkktfdzo6198 [place] [phone]. Marlin Gonzalez WBC 6.2 103/ul Normal 4.0-11.0 [facility] Comment on above: Performed By: #### C BC ####[facility] Iffmjaaclv0543 [place] [phone]. Marlin Gonzalez CELL COUNT BODY FLUIDon 09-3 -2021 Clarity, Serous Clear Normal Clear [facility] Comment on above: Performed By: #### C CBFS ####[facility] Skdlnllshw028[address] [place] [phone]. Marlin Gonzalez Color, Serous Yellow Normal [facility] Comment on above: Result Comment: [place] rless to Pale Yellow/Straw Performed By: #### C CBFS ####[facility] Hamufezxui[address] [place], [place] [address]Dr. Marlin Gonzalez Comments: Normal [facility] Comment on above: Performed By: #### C CBFS ####[facility] Xnahkcaikk34[address] [place], [place] [address]Dr. Marlin Gonzalez Eosinophils/100 WBC (Bld) 2 % Normal Not Estab. [facility] Comment on above: Performed By: #### C CBFS ####[facility] Bckevgugui34[address] [place], [place] [address]Dr. Marlin Gonzalez Lining Cells, Serous Normal [facility] Comment on above: Performed By: #### C CBFS ####[facility] Mowbmbyime93[address] [place], [place] [address]Dr. Marlin Gonzalez Lymphocytes/100 WBC (Bld) 26 % Normal Not Estab. [facility] Comment on above: Performed By: #### C CBFS ####[facility] Neyszxeyhr[address] [place], [place] [address]Dr. Marlin Gonzalez Macrophages, Serous 40 % Normal Not Estab. [facility] Comment on above: Performed By: #### C CBFS ####[facility] Bel[address]yb9997 [place], [place] [address]Of. Marlin Carlos Nucleated Cells, Serous 116 /mm3 Normal 0-499 [facility] Comment on above: Result Comment: Pleu ral Fluid, with <1000 Nucleated cells/uL has been associated with transudates while >1000 uL may be seen in exudates. Performed By: #### C CBFS ####[facility] Cwwetdkpqr2669 [place] [phone]. Marlin Gonzalez Polys, Serous 32 % Critically high 0-24 [facility] Comment on above: Performed By: #### C CBFS ####[facility] Obefvplppl6[address] [place] [phone]. Katherinearmando Gonzalez RBC, Serous Rare Normal Not Estab. [facility] Comment on above: Performed By: #### C CBFS ####[facility] Bnmbfydscf7[address] [place] [phone]. Katherinearmando Gonzalez GLUCOSE BODYFLUIDon 11-10-19 22 Glucose, Body Fluid 109 mg/dL Normal [facility] Comment on above: Result Comment: ____ [...] - 288 : : : : . Jose Miguel WJennyfer V. Reference Intervals for Adults and Children 2008. Ninth edition (V9.1) [employer], [facility]; [place]: August 2008.The reference intervals and other method performance specificationshave not been established for this test. The test result should beintegrated into the clinical context for interpretation. Performed By: #### B FGLUC ####[address] Marlin Gonzalez LACTIC ACID DEHYDROGENASE (L D), BODY FLUon 11-09-2021 LD, Body Fluid 127 IU/L Normal [facility] Comment on above: Result Comment: [...] 2007. Ninth Edition (V9.1) [employer], [facility]; [place]: August 2008.The reference intervals and other method performance specificationshave not been established for this test. The test result should beintegrated into the clinical context for interpretation. Performed By: #### L [facility] ####[facility] Plebjwgznm[address] [place] [address]Dr. Marlin Gonzalez PH, BODY FLUIDon 11-09-2021 pH, Body Fluid 7.4 Normal Not Estab. [facility] Comment on above: Result Comment: The reference interval(s) and other method performance specificationshave not been established for this body fluid. The test result must beintegrated into the clinical context for interpretation. Performed By: #### B DYFLPH ####[facility] Xyojkhrvog[address] [place], [place] [address]Dr. Marlin Gonzalez POINT OF CARE GLUCOSEon 10-13 Glucose [Mass/Vol] 185 mg/dL Critically high -106 [facility] Comment on above: Performed By: #### P OCGLUC ####[facility] Berbjljoas[address] [place], [place] [address]Dr. Marlin Carlos Glucose [Mass/Vol] 110 mg/dL Critically high -106 [facility] Comment on above: Performed By: #### P OCGLUC ####[facility] Sprkxjqrfq8064[address] [place], [place] [address]Dr. Marlin Gonzalez Glucose [Mass/Vol] 263 mg/dL Critically high [address] [place] [address] Comment on above: Performed By: #### P OCGLUC ####[facility] Bujibindou[address] [place], [place] [address]Dr. Marlin Gonzalez Glucose [Mass/Vol] 390 mg/dL Critically high [address] [place] [address] Comment on above: Performed By: #### P OCGLUC ####[facility] Gscrtvqaek[address] [place], [place] [address]Dr. Marlin Gonzalez PROF CHEM 8 (BAS METB)on Anion gap [Moles/Vol] 14.3 mmol/L Normal [facility] Comment on above: Performed By: #### B MP ####[facility] Stditsjsqk[address] [place], [place] [address]Dr. Marlin Carlos Calcium [Mass/Vol] 8.2 mg/dL Critically low 8.5-10.1 [facility] Comment on above: Performed By: #### B MP ####[facility] Zkxbmlqowm5046 [place] [phone]. Marlin Gonzalez Chloride [Moles/Vol] 101 mmol/L Normal 98-107 [facility] Comment on above: Performed By: #### B MP ####[facility] Fpxplzaouc3326 [place] [phone]. Marlin Gonzalez CO2 [Moles/Vol] 24.4 mmol/L Normal 21.0-32.0 [facility] Comment on above: Performed By: #### B MP ####[facility] Tnlsbtijwk[address] [place], [place] [address]Dr. Marlin Gonzalez Creatinine [Mass/Vol] 3.17 mg/dL Critically high 0.55-1.02 [facility] Comment on above: Performed By: #### B MP ####[facility] Hopigxiabm[address] [place], [place] [address]Dr. Katherinearmando Carlos EGFR-AF AFGHAN 17 mL/min/1.73m2 Critically low >=60 [facility] Comment on above: Performed By: #### B MP ####[facility] Lzgocufdac[address] [place], [place] [address]Dr. Marlin Gonzalez EGFR-NON AF AFGHAN 14 mL/min/1.73m2 Critically low >=60 [facility] Comment on above: Performed By: #### B MP ####[facility] Bhjymxinmx[address] [place], [place] [address]Dr. Marlin Gonzalez Glucose [Mass/Vol] 147 mg/dL Critically high 74-106 [facility] Comment on above: Performed By: #### B MP ####[facility] Txhtmssbri[address] [place] [address]Dr. Marlin Gonzalez Potassium [Moles/Vol] 3.7 mmol/L Normal 3.5-5.1 [facility] Comment on above: Performed By: #### B MP ####[facility] Akednctdvs[address] [place], [place] [address]Dr. Katherinearmando Gonzalez Sodium [Moles/Vol] 136 mmol/L Normal 136-145 [facility] Comment on above: Performed By: #### B MP ####[facility] Rtlqllieux0408 [place], [place] [address]Zm. Katherinearmando Carlos Urea nitrogen [Mass/Vol] 92.0 mg/dL Critically high 7.0-18.0 [facility] Comment on above: Performed By: #### B MP ####[facility] Igrdeczuwf0862 [place], [place] [address]Pl. Marlin Goznalez Urea nitrogen/Creatinine [Mass ratio] 29.0 mg/mg Normal [facility] Comment on above: Performed By: #### B MP ####[facility] Lrkpkhnpxf3732 [place], [place] [address]Uq. Marlin Gonzalez PROTEIN, TOTAL, BODY FLUIDon 11-09-2021 Protein, Body Fluid 2.5 g/dL Normal [facility] Comment on above: Result Comment: ____ [...] Children 2007. Ninth Edition (V9.1) [facility]; [place]: August 2008.The method performance specifications have not been established forthis test in body fluid. The test result should be integrated intothe clinical context for interpretation. Performed By: #### T PBF ####[facility] Ilcetwtqrj67[address] [place] [address]Dr. Marlin Gonzalez XR CHEST 1 Von 11-09-2021 XR CHEST 1 V Normal [facility] CBC AUTO DIFFon 11-08-2021 BASO # 0.0 103/ul Normal 0.0-0.1 [facility] Comment on above: Performed By: #### C BC ####[facility] Srfueiudsk3256 [place] [address]Dr. Marlin Gonzalez Basophils/100 WBC (Bld) 0.3 % Normal 0.2-2.0 [facility] Comment on above: Performed By: #### C BC ####[facility] Cwokkaatfn62[address] [place], [place] [address]Dr. Marlin Gonzalez EO # 0.4 103/ul Normal 0.0-0.7 [facility] Comment on above: Performed By: #### C BC ####[facility] Lzedjpezhe[address] [place], [place] [address]Dr. Marlin Gonzalez Eosinophils/100 WBC (Bld) 5.8 % Normal 0.9-7.0 [facility] Comment on above: Performed By: #### C BC ####[facility] Mcjodzaoda8[address] [place], [place] [address]Dr. Marlin Gonzalez Erythrocyte distribution width (RBC) [Ratio] 14.5 % Normal 11.0-15.0 [facility] Comment on above: Performed By: #### C BC ####[facility] Qaouagcvut[address] [place], [place] [address]Dr. Marlin Gonzalez Hematocrit (Bld) [Volume fraction] 27.4 % Critically low 36.0-48.0 [facility] Comment on above: Performed By: #### C BC ####[facility] Ijgdxarxwm[address] [place], [place] [address]Dr. Marlin Gonzalez Hemoglobin (Bld) [Mass/Vol] 8.6 g/dL Critically low 12.0-16.0 [facility] Comment on above: Performed By: #### C BC ####[facility] Xbwhqyijck2871 [place] [address]Dr. Marlin Gonzalez IG # 0.01 10e3/ul Normal 0.00-0.03 [facility] Comment on above: Performed By: #### C BC ####[facility] Mwppzwwdzn6378 [place] [address]Dr. Marlin Gonzalez IG % 0.1 % Normal 0.0-0.5 [facility] Comment on above: Performed By: #### C BC ####[facility] Ffdxyaqiqb2909 [place] [address]Dr. Marlin Gonzalez LYMPH # 1.2 103/ul Normal 1.2-3.8 [facility] Comment on above: Performed By: #### C BC ####[facility] Dhyeujzhon1622 [place] [address]Dr. Marlin Gonzalez Lymphocytes/100 WBC (Bld) 17.5 % Critically low 20.5-60.0 [facility] Comment on above: Performed By: #### C BC ####[facility] Vxssajsliv4122 [place] [address]DrLucia Gonzalez MANUAL DIFF REQ NO Normal [facility] Comment on above: Performed By: #### C BC ####[facility] Pddnzktwwu5047 [place] [address]Dr. Marlin Gonzalez MCH (RBC) [Entitic mass] 29.8 pg Normal 26.7-34.0 [facility] Comment on above: Performed By: #### C BC ####[facility] Rujmjxuncz7184 [place] [address]Dr. Marlin Gonzalez MCHC (RBC) [Mass/Vol] 31.4 g/dL Normal 29.9-35.2 [facility] Comment on above: Performed By: #### C BC ####[facility] Mgwzylqngu0899 [place] [address]Dr. Marlin Gonzalez MCV (RBC) [Entitic vol] 94.8 fL Normal 81.0-99.0 [facility] Comment on above: Performed By: #### C BC ####[facility] Bivhcvelvo8370 [place] [phone]. Marlin Gonzalez MONO # 0.7 103/ul Normal 0.3-0.8 [facility] Comment on above: Performed By: #### C BC ####[facility] Kmrrqugcvz8217 [place] [phone]. Marlin Gonzalez Monocytes/100 WBC (Bld) 11.0 % Normal 1.7-12.0 [facility] Comment on above: Performed By: #### C BC ####[facility] Vseqddpklv3981 [place] [phone]. Marlin Gonzalez NEUT # 4.4 103/ul Normal 1.4-6.5 [facility] Comment on above: Performed By: #### C BC ####[facility] Ogrifvguqy1363 [place] [address]Dr. Marlin Gonzalez Neutrophils/100 WBC (Bld) 65.3 % Normal 43.0-75.0 [facility] Comment on above: Performed By: #### C BC ####[facility] Lsqclbptmt8642 [place] [phone]. Marlin Gonzalez Platelet mean volume (Bld) [Entitic vol] 9.8 fL Normal 9.5-13.5 [facility] Comment on above: Performed By: #### C BC ####[facility] Pwmxozenue5924 [place] [phone]. Marlin Gonzalez PLT 183 103/ul Normal 150-450 [facility] Comment on above: Performed By: #### C BC ####[facility] Rpuoybfxml2507 [place] [phone]. Marlin Gonzalez RBC 2.89 106/ul Critically low 4.20-5.40 [facility] Comment on above: Performed By: #### C BC ####[facility] Vdsgumpepg0031 [place] [phone]. Marlin Gonzalez WBC 6.7 103/ul Normal 4.0-11.0 [facility] Comment on above: Performed By: #### C BC ####[facility] Yqfnhrnmrk2266 [place] [phone]. Marlin Gonzalez CULTURE STERILE BODY FLUIDon 11-08-2021 CULTURE STERILE BODY FLUID Culture Observations: NO GROWTH AT 72 HRS Normal [facility] Comment on above: Performed By: #### S TBFCX ####[facility] Jwpxintbck[address] [place], [place] [address]Dr. Marlin Gonzalez CYTOLOGYon 11-08-2021 SENT TO REF LAB 11/08/2021 Normal [facility] Comment on above: Performed By: #### C YTO ####[facility] Cgtihnuaiy[address] [place], [place] [address]Dr. Marlin Gonzalez GRAM STAINon 11-08-2021 COMMENTS NO ORGANISMS OBSERVED Normal [facility] Comment on above: Performed By: #### G STAIN ####[facility] Zvlckxekbi[address] [place], [place] [address]Dr. Marlin Gonzalez DIPHTHEROIDS Normal [facility] Comment on above: Performed By: #### G STAIN ####[facility] Jiygmcnrhd[address] [place], [place] [address]Dr. Marlin Gonzalez EPITHELIALS Normal [facility] Comment on above: Performed By: #### G STAIN ####[facility] Igasobukwx[address] [place], [place] [address]Dr. Marlin Gonzalez FUNGAL ELEMENTS Normal [facility] Comment on above: Performed By: #### G STAIN ####[facility] Lspljkcwbv[address] [place], [place] [address]Dr. Marlin Gonzalez GRAM NEG BACILLI Normal [facility] Comment on above: Performed By: #### G STAIN ####[facility] Ertifcfsae[address] [place], [place] [address]Dr. Marlin Gonzalez GRAM NEG DIPPLOCOCCI Normal [facility] Comment on above: Performed By: #### G STAIN ####[facility] Dyvvmvgbvr[address] [place], [place] [address]Dr. Marlin Gonzalez GRAM POS BACILLI Normal [facility] Comment on above: Performed By: #### G STAIN ####[facility] Dxszktjobf18[address] [place], [place] [address]Dr. Marlin Gonzalez GRAM POSITIVE COCCI Normal [facility] Comment on above: Performed By: #### G STAIN ####[facility] Vfcsymrqal4201 [place] [address]Dr. Marlin Gonzalez GRAM STAIN SOURCE THORACENTESIS FLUID Normal [facility] Comment on above: Performed By: #### G STAIN ####[facility] Cdpgjxajls6151 [place] [address]Dr. Marlin Gonzalez GS_DIPTH Normal [facility] Comment on above: Performed By: #### G STAIN ####[facility] Owpamxopir1482 [place] [address]Dr. Marlin Gonzalez WBC RARE Normal [facility] Comment on above: Performed By: #### G STAIN ####[facility] Zxsbumyvve1200 [place] [address]Dr. Marlin Gonzalez POINT OF CARE GLUCOSEon 10-12 Glucose [Mass/Vol] 107 mg/dL Critically high 74-106 [facility] Comment on above: Performed By: #### P OCGLUC ####[facility] Cktrbhccin3363 [place] [address]Dr. Katherinearmando Gonzalez Glucose [Mass/Vol] 86 mg/dL Normal 74-106 [facility] Comment on above: Performed By: #### P OCGLUC ####[facility] Hvvuhvfgad1086 [place] [address]Dr. Katherinearmando Gonzalez Glucose [Mass/Vol] 260 mg/dL Critically high 74-106 [facility] Comment on above: Performed By: #### P OCGLUC ####[facility] Pbyyakqxru8510 [place] [address]Dr. Katherinearmando Gonzalez Glucose [Mass/Vol] 121 mg/dL Critically high 74-106 [facility] Comment on above: Performed By: #### P OCGLUC ####[facility] Mcbfafuuvj4108 [place] [address]Dr. Marlin Gonzalez Glucose [Mass/Vol] 179 mg/dL Critically high 74-106 [facility] Comment on above: Performed By: #### P OCGLUC ####[facility] Mybitbkbpj4063 [place] [address]Dr. Marlin Gonzalez PROF CHEM 8 (BAS METB)on Anion gap [Moles/Vol] 12.3 mmol/L Normal [facility] Comment on above: Performed By: #### B MP ####[facility] Mlfjragfkd4570 [place] [address]Dr. Marlin Gonzalez Calcium [Mass/Vol] 8.1 mg/dL Critically low 8.5-10.1 [facility] Comment on above: Performed By: #### B MP ####[facility] Livdvvqgxm0755 [place] [address]Dr. Marlin Gonzalez Chloride [Moles/Vol] 100 mmol/L Normal 98-107 [facility] Comment on above: Performed By: #### B MP ####[facility] Razgbkqlae[address] [place], [place] [address]Dr. Marlin Gonzalez CO2 [Moles/Vol] 27.1 mmol/L Normal 21.0-32.0 [facility] Comment on above: Performed By: #### B MP ####[facility] Ixaaumenhl[address] [place], [place] [address]Dr. Marlin Gonzalez Creatinine [Mass/Vol] 3.21 mg/dL Critically high 0.55-1.02 [facility] Comment on above: Performed By: #### B MP ####[facility] Voytgtugzp[address] [place], [place] [address]Dr. Marlin Gonzalez EGFR-AF AFGHAN 17 mL/min/1.73m2 Critically low >=60 [facility] Comment on above: Performed By: #### B MP ####[facility] Nyllmewxnt7120 [place] [address]Dr. Marlin Gonzalez EGFR-NON AF AFGHAN 14 mL/min/1.73m2 Critically low >=60 [facility] Comment on above: Performed By: #### B MP ####[facility] Qpmhnfpgsk27[address] [place], [place] [address]Dr. Marlin Gonzalez Glucose [Mass/Vol] 66 mg/dL Critically low 74-106 [facility] Comment on above: Performed By: #### B MP ####[facility] Xjvpqairhs7615 [place] [address]Dr. Marlin Gonzalez Potassium [Moles/Vol] 3.4 mmol/L Critically low 3.5-5.1 [facility] Comment on above: Performed By: #### B MP ####[facility] Iulaeleesn9643 [place] [address]Dr. Marlin Gonzalez Sodium [Moles/Vol] 136 mmol/L Normal 136-145 [facility] Comment on above: Performed By: #### B MP ####[facility] Nnkdbhjzkb2398 [place] [address]Dr. Marlin Gonzalez Urea nitrogen [Mass/Vol] 96.0 mg/dL Critically high 7.0-18.0 [facility] Comment on above: Performed By: #### B MP ####[facility] Kkjarazfww2[address] [place], [place] [address]Dr. Marlin Gonzalez Urea nitrogen/Creatinine [Mass ratio] 29.9 mg/mg Normal [facility] Comment on above: Performed By: #### B MP ####[facility] Najqsmrxum[address] [place], [place] [address]Dr. Marlin Gonzalez XR CHEST 1 Von 11-08-2021 XR CHEST 1 V Normal [facility] XR CHEST 1 V Normal [facility] CBC W MANUAL DIFFon 11-08-19 22 ATYPICAL LYMPH # Normal [facility] Comment on above: Performed By: #### C GLORIA ####[facility] Scibcnjahd[address]474 [place] [address]Dr. Marlin Gonzalez ATYPICAL LYMPH % Normal [facility] Comment on above: Performed By: #### C GLORIA ####[facility] Zpvunhbnia9[address] [place], [place] [address]Dr. Marlin Gonzalez BAND # 0.0 103/ul Normal 0.0-0.3 [facility] Comment on above: Performed By: #### C GLORIA ####[facility] Myqjtdtrtn6289 [place] [address]Dr. Marlin Gonzalez BAND % 0 % Normal 0-5 [facility] Comment on above: Performed By: #### C BCMARY ####[facility] Apfquekjvv8422 [place] [phone]. Marlin Gonzalez BASOM # 0.08 103/ul Normal 0.00-0.10 [facility] Comment on above: Performed By: #### C BCMARY ####[facility] Demkikblun2360 [place] [phone]. Marlin Gonzalez BASOM % 1.0 % Normal 0.2-2.0 [facility] Comment on above: Performed By: #### C BCMARY ####[facility] Ghcjghgvyq0962 [place] [address]Dr. Marlin Gonzalez BLAST # Normal [facility] Comment on above: Performed By: #### C GLORIA ####[facility] Rhcvwulitb1477 [place] [address]Dr. Marlin Gonzalez BLAST % Normal [facility] Comment on above: Performed By: #### C GLORIA ####[facility] Ynmbcajrzk[address] [place], [place] [address]Dr. Marlin Gonzalez CORRECTED WBC Normal 4.0-11.0 [facility] Comment on above: Performed By: #### C GLORIA ####[facility] Rwuqliebct6[address] [place], [place] [address]Dr. Marlin Gonzalez EOS # 0.50 103/ul Normal 0.00-0.70 [facility] Comment on above: Performed By: #### C BCMARY ####[facility] Rlohazdsqm9333 [place] [address]Dr. Marlin Gonzalez EOS% 6.0 % Normal 0.9-7.0 [facility] Comment on above: Performed By: #### C BCMARY ####[facility] Beqyuoyfyr[address] [place], [place] [address]Dr. Marlin Gonzalez HCT 25.7 % Critically low 36.0-48.0 [facility] Comment on above: Performed By: #### C BCMARY ####[facility] Izjaxlqvho[address] [place], [place] [address]Dr. Marlin Gonzalez HGB 8.1 g/dl Critically low 12.0-16.0 [facility] Comment on above: Performed By: #### C GLORIA ####[facility] Fghnknbfjd6669 [place] [address]Dr. Marlin Gonzalez LYMPHM # 0.17 103/ul Critically low 1.20-3.80 [facility] Comment on above: Performed By: #### C GLORIA ####[facility] Yztchudxnu3452 [place] [address]Dr. Marlin Gonzalez LYMPHM% 2.0 % Critically low 20.5-60.0 [facility] Comment on above: Performed By: #### C GLORIA ####[facility] Zjcmkglivi6715 [place] [address]Dr. Marlin Gonzalez MCH 29.9 pg Normal 26.7-34.0 [facility] Comment on above: Performed By: #### C GLORIA ####[facility] Mikejsrwcf8[address] [place], [place] [address]Dr. Marlin Gonzalez MCHC 31.5 g/dl Normal 29.9-35.2 [facility] Comment on above: Performed By: #### C GLORIA ####[facility] Vnoatrkipu65[address] [place], [place] [address]Dr. Marlin Gonzalez MCV 94.8 fL Normal 81.0-99.0 [facility] Comment on above: Performed By: #### C GLORIA ####[facility] Btvgrxcxjc[address] [place], [place] [address]Dr. Marlin Gonzalez METAMYELOCYTE # Normal [facility] Comment on above: Performed By: #### C GLORIA ####[facility] Fnsudfkuoh8797 [place] [address]Dr. Marlin Gonzalez METAMYELOCYTE % Normal [facility] Comment on above: Performed By: #### C GLORIA ####[facility] Qsgavpsaed5948 [place] [address]Dr. Marlin Gonzalez MONOM# 0.08 103/ul Critically low 0.30-0.80 [facility] Comment on above: Performed By: #### C GLORIA ####[facility] Amfexpiwxu0544 [place] [phone]. Marlin Gonzalez MONOM% 1.0 % Critically low 1.7-12.0 [facility] Comment on above: Performed By: #### C GLORIA ####[facility] Rflgnjydxw6074 [place] [phone]. Marlin Gonzalez MPV 9.5 fL Normal 9.5-13.5 [facility] Comment on above: Performed By: #### C GLORIA ####[facility] Wmfzvxezbl5781 [place] [phone]. Marlin Gonzalez MYELOCYTE # Normal [facility] Comment on above: Performed By: #### C GLORIA ####[facility] Ekdxelfvhe[address] [place], [place] [address]Dr. Marlin Gonzalez MYELOCYTE % Normal [facility] Comment on above: Performed By: #### C GLORIA ####[facility] Gacpupjdzc[address] [place], [place] [address]Dr. Marlin Gonzalez NRBC Normal [facility] Comment on above: Performed By: #### C GLORIA ####[facility] Xiyjdzfixr6357 [place] [phone]. Marlin Gonzalez PLT 177 103/ul Normal 150-450 [facility] Comment on above: Performed By: #### C GLORIA ####[facility] Ncvezqjfdi6205 [place] [phone]. Marlin Gonzalez RBC 2.71 106/ul Critically low 4.20-5.40 [facility] Comment on above: Performed By: #### C GLORIA ####[facility] Kgsvwyavra[address] [place], [place] [address]Dr. Marlin Gonzalez RDW 14.6 % Normal 11.0-15.0 [facility] Comment on above: Performed By: #### C GLORIA ####[facility] Ioikctzrex8064[address] [place], [place] [address]Dr. Marlin Gonzalez SEG # 7.47 103/ul Critically high 1.40-6.50 [facility] Comment on above: Performed By: #### C GLORIA ####[facility] Ovpsyaqtmy1682 [place] [phone]. Marlin Gonzalez SEG % 90.0 % Critically high 43.0-75.0 [facility] Comment on above: Performed By: #### C BCMAN ####[facility] Rxnyzgewuc6785 [place] [phone]. Marlin Gonzalez WBC 8.3 103/ul Normal 4.0-11.0 [facility] Comment on above: Performed By: #### C BCMAN ####[facility] Pdsmuqvtfx9221 [place] [phone]. Marlin Gonzalez CELL COUNT BODY FLUIDon 10-12 Clarity, Serous Hazy Abnormal Clear [facility] Comment on above: Performed By: #### C CBFS ####[facility] Qjfngxxoej0055 [place] [phone]. Marlin Gonzalez Color, Serous Yellow Normal [facility] Comment on above: Result Comment: [place] rless to Pale Yellow/Straw Performed By: #### C CBFS ####[facility] Ojiljviskm[address] [place], [place] [address]Dr. Marlin Gonzalez Comments: Normal [facility] Comment on above: Performed By: #### C CBFS ####[facility] Ajmqkixjmd[address] [place], [place] [address]Dr. Marlin Gonzalez Eosinophils/100 WBC (Bld) 1 % Normal Not Estab. [facility] Comment on above: Performed By: #### C CBFS ####[facility] Jnfopaqafl[address] [place], [place] [address]Dr. Marlin Gonzalez Lining Cells, Serous Normal [facility] Comment on above: Performed By: #### C CBFS ####[facility] Leuxwylnbz[address] [place], [place] [address]Dr. Marlin Gonzalez Lymphocytes/100 WBC (Bld) 0 % Normal Not Estab. [facility] Comment on above: Performed By: #### C CBFS ####[facility] Sfdqxugdwx[address] [place], [place] [address]Dr. Katherinearmando Gonzalez Macrophages, Serous 41 % Normal Not Estab. [facility] Comment on above: Performed By: #### C CBFS ####[facility] Ctcqhpxzjy1251 [place] [phone]. Mariln Gonzalez Nucleated Cells, Serous 2536 /mm3 Critically high 0-499 [facility] Comment on above: Result Comment: Pleu ral Fluid, with <1000 Nucleated cells/uL has been associated with transudates while >1000 uL may be seen in exudates. Performed By: #### C CBFS ####[facility] Yoqhiemqvt9102 [place] [address]Dr. Marlin Gonzalez Polys, Serous 58 % Critically high 0-24 [facility] Comment on above: Performed By: #### C CBFS ####[facility] Yudjdwnsjr1070 [place] [address]Dr. Marlin Gonzalez RBC (Bld) [#/Vol] 0.002 10*6/uL Normal Not Estab. [facility] Comment on above: Performed By: #### C CBFS ####[facility] Toffhamepd0479 [place] [address]Dr. Marlin Gonzalez POINT OF CARE GLUCOSEon 10-12 Glucose [Mass/Vol] 180 mg/dL Critically high 74-106 [facility] Comment on above: Performed By: #### P OCGLUC ####[facility] [address] [place] [address]Dr. Marlin Gonzalez Glucose [Mass/Vol] 129 mg/dL Critically high 74-106 [facility] Comment on above: Performed By: #### P OCGLUC ####[facility] Zcnnycryrv[address] [place] [address]Dr. Marlin Gonzalez Glucose [Mass/Vol] 194 mg/dL Critically high 74-106 [facility] Comment on above: Performed By: #### P OCGLUC ####[facility] Tsuupppqxr40[address] [place] [address]Dr. Marlin Gonzalez Glucose [Mass/Vol] 164 mg/dL Critically high 74-106 [facility] Comment on above: Performed By: #### P OCGLUC ####[facility] Hopooqhmrc[address] [place], [place] [address]Dr. Marlin Gonzalez Glucose [Mass/Vol] 89 mg/dL Normal 74-106 [facility] Comment on above: Performed By: #### P OCGLUC ####[facility] Mcpsaujfjp[address] [place], [place] [address]Dr. Marlin Gonzalez Glucose [Mass/Vol] 56 mg/dL Critically low 74-106 [facility] Comment on above: Performed By: #### P OCGLUC ####[facility] Hxlivyaveh[address] [place], [place] [address]Dr. Marlin Carlos PROF CHEM 8 (BAS METB)on Anion gap [Moles/Vol] 13.9 mmol/L Normal [facility] Comment on above: Performed By: #### B MP ####[facility] Zpqamwengg[address] [place], [place] [address]Dr. Marlin Gonzalez Calcium [Mass/Vol] 8.0 mg/dL Critically low 8.5-10.1 [facility] Comment on above: Performed By: #### B MP ####[facility] Aalgdbqokb54[address] [place], [place] [address]Dr. Marlin Carlos Chloride [Moles/Vol] 98 mmol/L Normal 98-107 [facility] Comment on above: Performed By: #### B MP ####[facility] Bqezumkrek634[address] [place], [place] [address]Dr. Marlin Carlos CO2 [Moles/Vol] 24.8 mmol/L Normal 21.0-32.0 [facility] Comment on above: Performed By: #### B MP ####[facility] Blbvpbhzrq7[address] [place], [place] [address]Dr. Marlin Gonzalez Creatinine [Mass/Vol] 3.19 mg/dL Critically high 0.55-1.02 [facility] Comment on above: Performed By: #### B MP ####[facility] Alyxihwkfa[address] [place], [place] [address]Dr. Marlin Carlos EGFR-AF AFGHAN 17 mL/min/1.73m2 Critically low >=60 [facility] Comment on above: Performed By: #### B MP ####[facility] Afrswcepjl[address] [place] [address]Dr. Marlin Gonzalez EGFR-NON AF AFGHAN 14 mL/min/1.73m2 Critically low >=60 [facility] Comment on above: Performed By: #### B MP ####[facility] Jqdxscmjpf[address] [place] [address]Dr. Marlin Gonzalez Glucose [Mass/Vol] 132 mg/dL Critically high 74-106 [facility] Comment on above: Performed By: #### B MP ####[facility] Kjvzchjkho76[address] [place] [address]Dr. Marlin Gonzalez Potassium [Moles/Vol] 3.7 mmol/L Normal 3.5-5.1 [facility] Comment on above: Performed By: #### B MP ####[facility] Rzutwtothd[address] [place], [place] [address]Dr. Marlin Gonzalez Sodium [Moles/Vol] 133 mmol/L Critically low 136-145 [facility] Comment on above: Performed By: #### B MP ####[facility] Txvnbxcfbo[address] [place], [place] [address]Dr. Marlin Gonzalez Urea nitrogen [Mass/Vol] 93.0 mg/dL Critically high 7.0-18.0 [facility] Comment on above: Performed By: #### B MP ####[facility] Qxrzqsypwt55[address] [place], [place] [address]Dr. Marlin Gonzalez Urea nitrogen/Creatinine [Mass ratio] 29.2 mg/mg Normal [facility] Comment on above: Performed By: #### B MP ####[facility] Pkaluyytel166[address] [place], [place] [address]Dr. Marlin Gonzalez XR CHEST 2 Von 11-07-2021 XR CHEST 2 V Normal [facility] XR SHOULDER RT 2V or >on XR SHOULDER RT 2V or > Normal [facility] CBC AUTO DIFFon 11-06-2021 BASO # 0.0 103/ul Normal 0.0-0.1 [facility] Comment on above: Performed By: #### C BC ####[facility] Xitsytzxbf[address] [place], [place] [address]Dr. Marlin Carlos Basophils/100 WBC (Bld) 0.1 % Critically low 0.2-2.0 [facility] Comment on above: Performed By: #### C BC ####[facility] Quulxgzcpw22[address] [place] [address]Dr. Marlin Gonzalez EO # 0.1 103/ul Normal 0.0-0.7 [facility] Comment on above: Performed By: #### C BC ####[facility] Uruuxjvoqh78364[address] [place], [place] [address]Dr. Marlin Gonzalez Eosinophils/100 WBC (Bld) 1.2 % Normal 0.9-7.0 [facility] Comment on above: Performed By: #### C BC ####[facility] Crfeylkpgy[address] [place], [place] [address]Dr. Marlin Gonzalez Erythrocyte distribution width (RBC) [Ratio] 14.9 % Normal 11.0-15.0 [facility] Comment on above: Performed By: #### C BC ####[facility] Poqbbnopvd[address] [place], [place] [address]Dr. Marlin Gonzalez Hematocrit (Bld) [Volume fraction] 25.3 % Critically low 36.0-48.0 [facility] Comment on above: Performed By: #### C BC ####[facility] Htyitfdcxv022[address] [place], [place] [address]Dr. Marlin Gonzalez Hemoglobin (Bld) [Mass/Vol] 8.0 g/dL Critically low 12.0-16.0 [facility] Comment on above: Performed By: #### C BC ####[facility] Hzfbrujesn140[address] [place], [place] [address]Dr. Marlin Carlos IG # 0.04 10e3/ul Critically high 0.00-0.03 [facility] Comment on above: Performed By: #### C BC ####[facility] Migedjszjc34[address] [place], [place] [address]Dr. Katherinearmando Gonzalez IG % 0.4 % Normal 0.0-0.5 [facility] Comment on above: Performed By: #### C BC ####[facility] Nvtasbccgz[address] [place] [address]Dr. Marlin Carlos LYMPH # 1.2 103/ul Normal 1.2-3.8 [facility] Comment on above: Performed By: #### C BC ####[facility] Eyyfkdcfgu3[address] [place] [address]Dr. Katherinearmando Gonzalez Lymphocytes/100 WBC (Bld) 12.9 % Critically low 20.5-60.0 [facility] Comment on above: Performed By: #### C BC ####[facility] Bdnoonyswb33[address] [place] [address]Dr. Katherinearmando Gonzalez MANUAL DIFF REQ NO Normal [facility] Comment on above: Performed By: #### C BC ####[facility] Zttdzkebfy22[address] [place] [address]Dr. Marlin Carlos MCH (RBC) [Entitic mass] 29.9 pg Normal 26.7-34.0 [facility] Comment on above: Performed By: #### C BC ####[facility] Quxmjkzhiy7[address] [place], [place] [address]Dr. Marlin Carlos MCHC (RBC) [Mass/Vol] 31.6 g/dL Normal 29.9-35.2 [facility] Comment on above: Performed By: #### C BC ####[facility] Iiytiywbnh57[address] [place] [address]Dr. Marlin Gonzalez MCV (RBC) [Entitic vol] 94.4 fL Normal 81.0-99.0 [facility] Comment on above: Performed By: #### C BC ####[facility] Fmylfhnjjj24[address] [place] [address]Dr. Marlin Gonzalez MONO # 0.7 103/ul Normal 0.3-0.8 [facility] Comment on above: Performed By: #### C BC ####[facility] Yuazjjkzmv[address] [place], [place] [address]Dr. Marlin Gonzalez Monocytes/100 WBC (Bld) 7.4 % Normal 1.7-12.0 [facility] Comment on above: Performed By: #### C BC ####[facility] [address]jnd[address] [place] [id number]. Marlin Gonzalez NEUT # 7.1 103/ul Critically high 1.4-6.5 [facility] Comment on above: Performed By: #### C BC ####[facility] Xitrkuypnw0524 [place] [phone]. Marlin Gonzalez Neutrophils/100 WBC (Bld) 78.0 % Critically high 43.0-75.0 [facility] Comment on above: Performed By: #### C BC ####[facility] Tdkzccrbdf29[address] [place] [address]Dr. Marlin Gonzalez Platelet mean volume (Bld) [Entitic vol] 10.0 fL Normal 9.5-13.5 [facility] Comment on above: Performed By: #### C BC ####[facility] Bkxxpvtzyi6226 [place] [id number]. Marlin Gonzalez PLT 169 103/ul Normal 150-450 [facility] Comment on above: Performed By: #### C BC ####[facility] Dljnjgqmbo84[address] [place] [address]Dr. Marlin Gonzalez RBC 2.68 106/ul Critically low 4.20-5.40 [facility] Comment on above: Performed By: #### C BC ####[facility] Rtdqziyycy1719 [place] [phone]. Marlin Gonzalez WBC 9.1 103/ul Normal 4.0-11.0 [facility] Comment on above: Performed By: #### C BC ####[facility] Ttbwbsoufj7605 [place] [address]Dr. Marlin Gonzalez GLUCOSE BODYFLUIDon 11-07-19 22 Glucose, Body Fluid 265 mg/dL Normal [facility] Comment on above: Result Comment: [...] - 288 : : : : . Jose Miguel WJennyfer V. Reference Intervals for Adults and Children 2007. Ninth edition (V9.1) [employer], [facility]; [place]: August 2008.The reference intervals and other method performance specificationshave not been established for this test. The test result should beintegrated into the clinical context for interpretation. Performed By: #### B FGLUC ####[facility] [address]adeuf[address] [place] [address]. Marlin Gonzalez LACTIC ACID DEHYDROGENASE (L D), BODY FLUon 11-06-2021 LD, Body Fluid 278 IU/L Normal [facility] Comment on above: Result Comment: [...] 2008. Ninth Edition (V9.1) [employer], [facility]; [place]: August 2008.The reference intervals and other method performance specificationshave not been established for this test. The test result should beintegrated into the clinical context for interpretation. Performed By: #### L DHBF ####[facility] Fvqhzocxpo7[address] [place], [place] [address]Dr. Marlin Gonzalez POINT OF CARE GLUCOSEon 10-12 Glucose [Mass/Vol] 165 mg/dL Critically high 74-106 [facility] Comment on above: Performed By: #### P OCGLUC ####[facility] Gsahwaotuv39[address] [place], [place] [address]Dr. Marlin Gonzalez Glucose [Mass/Vol] 150 mg/dL Critically high 74-106 [facility] Comment on above: Performed By: #### P OCGLUC ####[facility] Nkjwqigwuc9950[address] [place], [place] [address]Dr. Marlin Gonzalez Glucose [Mass/Vol] 209 mg/dL Critically high 74-106 [facility] Comment on above: Performed By: #### P OCGLUC ####[facility] Fxcvkngqxj20[address] [place], [place] [address]Dr. Marlin Gonzalez PROF CHEM 8 (BAS METB)on Anion gap [Moles/Vol] 16.0 mmol/L Normal [facility] Comment on above: Performed By: #### B MP ####[facility] Eaurgzwuni9189[address] [place], [place] [address]Dr. Marlin Gonzalez Calcium [Mass/Vol] 8.3 mg/dL Critically low 8.5-10.1 [facility] Comment on above: Performed By: #### B MP ####[facility] Algvvkquqk105[address] [place], [place] [address]Dr. Marlin Gonzalez Chloride [Moles/Vol] 97 mmol/L Critically low 98-107 [facility] Comment on above: Performed By: #### B MP ####[facility] Hdvjewzexx20[address] [place], [place] [address]Dr. Marlin Gonzalez CO2 [Moles/Vol] 23.8 mmol/L Normal 21.0-32.0 [facility] Comment on above: Performed By: #### B MP ####[facility] Zveumthgob9[address] [place], [place] [address]Dr. Marlin Gonzalez Creatinine [Mass/Vol] 3.37 mg/dL Critically high 0.55-1.02 [facility] Comment on above: Performed By: #### B MP ####[facility] Iyvqtpduje50[address] [place], [place] [address]Dr. Marlin Gonzalez EGFR-AF AFGHAN 16 mL/min/1.73m2 Critically low >=60 [facility] Comment on above: Performed By: #### B MP ####[facility] Vnzcwexdjs88[address] [place], [place] [address]Dr. Marlin Gonzalez EGFR-NON AF AFGHAN 13 mL/min/1.73m2 Critically low >=60 [facility] Comment on above: Performed By: #### B MP ####[facility] Vswszsbrdn8[address] [place], [place] [address]Dr. Marlin Gonzalez Glucose [Mass/Vol] 117 mg/dL Critically high 74-106 [facility] Comment on above: Performed By: #### B MP ####[facility] Qnprobkypa6487[address] [place], [place] [address]Dr. Marlin Gonzalez Potassium [Moles/Vol] 3.8 mmol/L Normal 3.5-5.1 [facility] Comment on above: Performed By: #### B MP ####[facility] Vejhersebc56[address] [place], [place] [address]Dr. Marlin Gonzalez Sodium [Moles/Vol] 133 mmol/L Critically low 136-145 [facility] Comment on above: Performed By: #### B MP ####[facility] Poocdzyfoh474[address] [place], [place] [address]Dr. Marlin Gonzalez Urea nitrogen [Mass/Vol] 97.0 mg/dL Critically high 7.0-18.0 [facility] Comment on above: Performed By: #### B MP ####[facility] Utuiuixwxa59[address] [place] [phone]. Marlin Carlos Urea nitrogen/Creatinine [Mass ratio] 28.8 mg/mg Normal [facility] Comment on above: Performed By: #### B MP ####[facility] Pygjabjcwu8862 [place] [address]Dr. Katherinearmando Gonzalez PROTEIN, TOTAL, BODY FLUIDon 11-06-2021 Protein, Body Fluid 2.8 g/dL Normal [facility] Comment on above: Result Comment: ____ [...] Children 2007. Ninth Edition (V9.1) [facility]; [place]: August 2008.The method performance specifications have not been established forthis test in body fluid. The test result should be integrated intothe clinical context for interpretation. Performed By: #### T PBF ####[facility] Vbfweuapjx8654 [place] [address]Dr. Marlin Gonzalez TRIGLYCERIDES, FLUIDon 11-06 Triglycerides, Fluid 16 mg/dL Normal Not Estab. [facility] Comment on above: Result Comment: The reference intervals and other method performance specificationshave not been established for this test. The test result should beintegrated into the clinical context for interpretation.The reference interval(s) and other method performance specificationshave not been established for this body fluid. The test result must beintegrated into the clinical context for interpretation. Performed By: #### T RIGFLU ####[facility] Vjqpaswrze17[address] [place], [place] [address]Dr. Marlin Gonzalez XR CHEST 1 Von 11-06-2021 XR CHEST 1 V Normal [facility] XR SHOULDER RT 2V or >on XR SHOULDER RT 2V or > Normal [facility] CBC AUTO DIFFon 11-05-2021 BASO # 0.0 103/ul Normal 0.0-0.1 [facility] Comment on above: Performed By: #### C BC ####[facility] Uiwfmntuex633[address] [place], [place] [address]Dr. Marlin Carlos Basophils/100 WBC (Bld) 0.0 % Critically low 0.2-2.0 [facility] Comment on above: Performed By: #### C BC ####[facility] Bzedjqxagw6213[address] [place], [place] [address]Dr. Marlin Carlos EO # 0.0 103/ul Normal 0.0-0.7 [facility] Comment on above: Performed By: #### C BC ####[facility] Mxfyjxmpsy98[address] [place], [place] [address]Dr. Marlin Carlos Eosinophils/100 WBC (Bld) 0.0 % Critically low 0.9-7.0 [facility] Comment on above: Performed By: #### C BC ####[facility] Klqjbgxnct038[address] [place], [place] [address]Dr. Marlin Carlos Erythrocyte distribution width (RBC) [Ratio] 14.9 % Normal 11.0-15.0 [facility] Comment on above: Performed By: #### C BC ####[facility] Irtpmgrcto1995 [place] [address]DrLucia Gonzalez Hematocrit (Bld) [Volume fraction] 27.6 % Critically low 36.0-48.0 [facility] Comment on above: Performed By: #### C BC ####[facility] Pzrsbmfxyu0[address] [place], [place] [address]DrLucia Gonzalez Hemoglobin (Bld) [Mass/Vol] 8.9 g/dL Critically low 12.0-16.0 [facility] Comment on above: Performed By: #### C BC ####[facility] Dgscimopnv770[address] [place], [place] [address]DrLucia Gonzalez IG # 0.05 10e3/ul Critically high 0.00-0.03 [facility] Comment on above: Performed By: #### C BC ####[facility] Zfnfbbmltq46[address] [place], [place] [address]DrLucia Gonzalez IG % 0.7 % Critically high 0.0-0.5 [facility] Comment on above: Performed By: #### C BC ####[facility] Ayupgvwmut384[address] [place], [place] [address]DrLucia Gonzalez LYMPH # 0.5 103/ul Critically low 1.2-3.8 [facility] Comment on above: Performed By: #### C BC ####[facility] Fexlxnlorw5[address] [place], [place] [address]DrLucia Gonzalez Lymphocytes/100 WBC (Bld) 6.0 % Critically low 20.5-60.0 [facility] Comment on above: Performed By: #### C BC ####[facility] Vnbboxujvz79[address] [place], [place] [address]DrLucia Gonzalez MANUAL DIFF REQ NO Normal [facility] Comment on above: Performed By: #### C BC ####[facility] Rtwdhywhmo14[address] [place], [place] [address]DrLucia Gonzalez MCH (RBC) [Entitic mass] 30.4 pg Normal 26.7-34.0 [facility] Comment on above: Performed By: #### C BC ####[facility] Ceskgvcupz3764 [place] [address]DrLucia Gonzalez MCHC (RBC) [Mass/Vol] 32.2 g/dL Normal 29.9-35.2 [facility] Comment on above: Performed By: #### C BC ####[facility] Enhrexjhqp2718[address] [place], [place] [address]DrLucia Gonzalez MCV (RBC) [Entitic vol] 94.2 fL Normal 81.0-99.0 [facility] Comment on above: Performed By: #### C BC ####[facility] Lqyjrzztmm04[address] [place], [place] [address]DrLucia Gonzalez MONO # 0.4 103/ul Normal 0.3-0.8 [facility] Comment on above: Performed By: #### C BC ####[facility] Yaysqkbunx[address] [place], [place] [address]DrLucia Gonzalez Monocytes/100 WBC (Bld) 5.8 % Normal 1.7-12.0 [facility] Comment on above: Performed By: #### C BC ####[facility] Ndxhyvmepx88[address] [place], [place] [address]DrLucia Gonzalez NEUT # 6.5 103/ul Normal 1.4-6.5 [facility] Comment on above: Performed By: #### C BC ####[facility] Tyaqbfefen53[address] [place], [place] [address]DrLucia Gonzalez Neutrophils/100 WBC (Bld) 87.5 % Critically high 43.0-75.0 [facility] Comment on above: Performed By: #### C BC ####[facility] Doufghzdmt[address] [place], [place] [address]DrLucia Gonzalez Platelet mean volume (Bld) [Entitic vol] 9.9 fL Normal 9.5-13.5 [facility] Comment on above: Performed By: #### C BC ####[facility] Emzynrulfv[address] [place], [place] [address]DrLucia Gonzalez PLT 175 103/ul Normal 150-450 [facility] Comment on above: Performed By: #### C BC ####[facility] Mgwbrjlaql67[address] [place] [address]Dr. Marlin Gonzalez RBC 2.93 106/ul Critically low 4.20-5.40 [facility] Comment on above: Performed By: #### C BC ####[facility] Tzwvpyldve217[address] [place], [place] [address]Dr. Marlin Carlos WBC 7.5 103/ul Normal 4.0-11.0 [facility] Comment on above: Performed By: #### C BC ####[facility] Guusnpzngr7[address] [place], [place] [address]Dr. Katherinearmando Carlos CULTURE STERILE BODY FLUIDon 11-05-2021 CULTURE STERILE BODY FLUID Culture Observations: NO GROWTH AT 72 HOURS. Normal [facility] Comment on above: Performed By: #### S TBFCX ####[facility] Ocalueuedq[address] [place], [place] [address]Dr. Marlin Carlos CYTOLOGYon 11-05-2021 SENT TO REF LAB 11/05/2021 Normal [facility] Comment on above: Performed By: #### C YTO ####[facility] Dduqfxyqpg26[address] [place], [place] [address]Dr. Marlin Carlos GRAM STAINon 11-05-2021 COMMENTS NO ORGANISMS OBSERVED Normal [facility] Comment on above: Performed By: #### G STAIN ####[facility] Mmerjegpov[address] [place], [place] [address]Dr. Marlin Gonzalez DIPHTHEROIDS Normal [facility] Comment on above: Performed By: #### G STAIN ####[facility] Dhmtsqvuth[address] [place], [place] [address]Dr. Marlin Gonzalez EPITHELIALS Normal [facility] Comment on above: Performed By: #### G STAIN ####[facility] Fcrdaextgl66[address] [place], [place] [address]Dr. Marlin Gonzalez FUNGAL ELEMENTS Normal [facility] Comment on above: Performed By: #### G STAIN ####[facility] Lvehvdtghz[address] [place], [place] [address]Dr. Marlin Gonzalez GRAM NEG BACILLI Normal [facility] Comment on above: Performed By: #### G STAIN ####[facility] Krpdayvtez[address] [place] [address]Dr. Marlin Gonzalez GRAM NEG DIPPLOCOCCI Normal [facility] Comment on above: Performed By: #### G STAIN ####[facility] Tqtyotukka[address] [place] [address]Dr. Marlin Gonzalez GRAM POS BACILLI Normal [facility] Comment on above: Performed By: #### G STAIN ####[facility] Bzanzwftmg9[address] [place] [address]Dr. Marlin Gonzalez GRAM POSITIVE COCCI Normal [facility] Comment on above: Performed By: #### G STAIN ####[facility] Quwywugwdx84[address] [place] [address]Dr. Marlin Gonzalez GRAM STAIN SOURCE THORACENTESIS FLUID Normal [facility] Comment on above: Performed By: #### G STAIN ####[facility] Gmbzkynkmc6653 [place] [address]Dr. Marlin Gonzalez GS_DIPTH Normal [facility] Comment on above: Performed By: #### G STAIN ####[facility] Rovfffonvo[address] [place], [place] [address]Dr. Marlin Gonzalez WBC RARE Normal [facility] Comment on above: Performed By: #### G STAIN ####[facility] Gnzsdwjjmi8019 [place] [address]Dr. Marlin Gonzalez POINT OF CARE GLUCOSEon 10-12 Glucose [Mass/Vol] 150 mg/dL Critically high 74-106 [facility] Comment on above: Performed By: #### P OCGLUC ####[facility] Prgohrsusd18[address] [place] [address]Dr. Marlin Gonzalez Glucose [Mass/Vol] 145 mg/dL Critically high -106 [facility] Comment on above: Performed By: #### P OCGLUC ####[facility] Rdprcdrzua3574 [place] [address]Dr. Marlin Gonzalez Glucose [Mass/Vol] 356 mg/dL Critically high 74-106 [facility] Comment on above: Performed By: #### P OCGLUC ####[facility] Desvjlwuvj0[address] [place] [address]Dr. Marlin Gonzalez Glucose [Mass/Vol] 207 mg/dL Critically high 74-106 [facility] Comment on above: Performed By: #### P OCGLUC ####[facility] Iqixeqlyxt[address] [place] [address]Dr. Marlin Gonzalez PROF CHEM 8 (BAS METB)on Anion gap [Moles/Vol] 15.7 mmol/L Normal [facility] Comment on above: Performed By: #### B MP ####[facility] Cajnvyvxok[address] [place], [place] [address]Dr. Marlin Gonzalez Calcium [Mass/Vol] 8.8 mg/dL Normal 8.5-10.1 [facility] Comment on above: Performed By: #### B MP ####[facility] Nlvidqctxs332[address] [place], [place] [address]Dr. Marlin Gonzalez Chloride [Moles/Vol] 101 mmol/L Normal 98-107 [facility] Comment on above: Performed By: #### B MP ####[facility] Crbckpircq205[address] [place], [place] [address]DrLucia Gonzalez CO2 [Moles/Vol] 23.0 mmol/L Normal 21.0-32.0 [facility] Comment on above: Performed By: #### B MP ####[facility] Qxmckpjtrm[address] [place], [place] [address]DrLucia Gonzalez Creatinine [Mass/Vol] 3.21 mg/dL Critically high 0.55-1.02 [facility] Comment on above: Performed By: #### B MP ####[facility] Tqhnlejxby8[address] [place], [place] [address]DrLucia Gonzalez EGFR-AF AFGHAN 17 mL/min/1.73m2 Critically low >=60 [facility] Comment on above: Performed By: #### B MP ####[facility] Qnexsmbdix34[address] [place], [place] [address]DrLucia Gonzalez EGFR-NON AF AFGHAN 14 mL/min/1.73m2 Critically low >=60 [facility] Comment on above: Performed By: #### B MP ####[facility] Qwmmhxqnga36[address] [place] [address]Dr. Marlin Gonzalez Glucose [Mass/Vol] 203 mg/dL Critically high 74-106 [facility] Comment on above: Performed By: #### B MP ####[facility] Sheggjuovp19[address] [place] [address]Dr. Katherinearmando Carlos Potassium [Moles/Vol] 3.7 mmol/L Normal 3.5-5.1 [facility] Comment on above: Performed By: #### B MP ####[facility] Epgqvgxknj135[address] [place], [place] [address]Dr. Marlin Gonzalez Sodium [Moles/Vol] 136 mmol/L Normal 136-145 [facility] Comment on above: Performed By: #### B MP ####[facility] Xohezljdjm05[address] [place], [place] [address]Dr. Marlin Carlos Urea nitrogen [Mass/Vol] 94.0 mg/dL Critically high 7.0-18.0 [facility] Comment on above: Performed By: #### B MP ####[facility] Ddbjopynwm524[address] [place], [place] [address]Dr. Marlin Carlos Urea nitrogen/Creatinine [Mass ratio] 29.3 mg/mg Normal [facility] Comment on above: Performed By: #### B MP ####[facility] Hsxzexnzir087[address] [place], [place] [address]Dr. Marlin Carlos VANCOMYCIN TROUGHon 11-06-19 22 VANCOMYCIN TROUGH 10.3 ug/ml Normal 5.0-20.0 [facility] Comment on above: Performed By: #### V ANCT ####[facility] Deqtcmmzvw3[address] [place], [place] [address]Dr. Marlin Carlos XR CHEST 1 Von 11-05-2021 XR CHEST 1 V Normal [facility] BLOOD GASES BTYon 11-04-2021 02 MODE NASAL CANNULA Normal [facility] Comment on above: Performed By: #### A BG ####[facility] Iabsfyjifu[address] [place] [address]Dr. Marlin Gonzalez ALLENS TEST Positive Normal [facility] Comment on above: Performed By: #### A BG ####[facility] Amumsupmad3758 [place] [address]Dr. Marlin Gonzalez Base excess Calc (Bld) [Moles/Vol] -0.5000 mmol/L Normal -2.0-2.0 [facility] Comment on above: Performed By: #### A BG ####[facility] Wnthceqact101[address] [place], [place] [address]Dr. Marlin Gonzalez BIPAP PRESSURE Normal [facility] Comment on above: Performed By: #### A BG ####[facility] Kyvmscuvol62[address] [place], [place] [address]Dr. Marlin Gonzalez CPAP Normal [facility] Comment on above: Performed By: #### A BG ####[facility] Qgnnltkafk398[address] [place], [place] [address]Dr. Marlin Gonzalez FIO2 Normal [facility] Comment on above: Performed By: #### A BG ####[facility] Fiihglcpev542[address] [place], [place] [address]Dr. Marlin Gonzalez HCO3 (Bld) [Moles/Vol] 49.8 mmol/L Critically high 22.0-26 .0 [facility] Comment on above: Performed By: #### A BG ####[facility] Ekumfiuzbj9828[address] [place], [place] [address]Dr. Marlin Gonzalez LPM Normal [facility] Comment on above: Performed By: #### A BG ####[facility] Nhywtdnfgn8625[address] [place], [place] [address]Dr. Marlin Gonzalez MINUTE VOLUME Normal [facility] Comment on above: Performed By: #### A BG ####[facility] Zpirgtglbk8597[address] [place], [place] [address]Dr. Marlin Gonzalez Oxygen (Bld) [Partial pressure] 78.3 mm[Hg] Critically low 80.0-100.0 [facility] Comment on above: Performed By: #### A BG ####[facility] Hrfuzyoxkb6128 [place] [address]Dr. Marlin Gonzalez Oxygen saturation in Blood 97.0 % Normal 95.0-100.0 [facility] Comment on above: Performed By: #### A BG ####[facility] Ergwxtvpou7294 [place] [address]Dr. Marlin Gonzalez PCO2 34.2 mmHg Critically low 35.0-45.0 [facility] Comment on above: Performed By: #### A BG ####[facility] Bnwudasapz186[address] [place], [place] [address]Dr. Marlni Gonzalez PEEP [facility] Comment on above: Performed By: #### A BG ####[facility] Qnsgbsgoos24314[address] [place], [place] [address]Dr. Marlin Gonzalez pH (Bld) 7.446 [pH] Normal 7.350-7.450 [facility] Comment on above: Performed By: #### A BG ####[facility] Tvekuyhsjm4230[address] [place], [place] [address]Dr. Marlin Gonzalez PIP [facility] Comment on above: Performed By: #### A BG ####[facility] Vwivykfyqn[address] [place], [place] [address]Dr. Marlin Gonzalez PS [facility] Comment on above: Performed By: #### A BG ####[facility] Ceqjrpwecz[address] [place], [place] [address]Dr. Marlin Gonzalez PUNCTURE SITE RR [facility] Comment on above: Performed By: #### A BG ####[facility] Twnagtpdxh57[address] [place], [place] [address]Dr. Marlin Gonzalez RATE [facility] Comment on above: Performed By: #### A BG ####[facility] Cyyfkjduaa29[address] [place], [place] [address]Dr. Marlin Gonzalez VENT MODE [facility] Comment on above: Performed By: #### A BG ####[facility] Papujyoewb8337[address] [place], [place] [address]Dr. Marlin Gonzalez [place] [facility] Comment on above: Performed By: #### A BG ####[facility] Eymiagasan[address] [place] [id number]. Marlin Carlos CARDIAC JOSSIE ADMITon 022 CK [Catalytic activity/Vol] 43 U/L Normal 26-192 [facility] Comment on above: Performed By: #### C SHAWN, CMADM ####[facility] Rlfhymsjjn0495 [place] [phone]. Marlin Gonzalez CK.MB [Mass/Vol] 2.43 ng/mL Normal <=3.60 [facility] Comment on above: Performed By: #### C SHAWN, CMADM ####[facility] Sfvphfecwv28[address] [place] [address]Dr. Katherinearmando Gonzalez HSTROP 37.7 pg/mL Normal 4.0-51.3 [facility] Comment on above: Result Comment: CUT- OFF POINTS HAVE BEEN ESTABLISHED BASED ON THE FOURTH UNIVERSAL DEFINITIONS OF MYOCARDIALINFARCTION. THE UPPER REFERENCE LIMIT (URL) OF TROPONIN, DEFINED THE 99TH PERCENTILE OFcTnI DISTRIBUTION IN A REFERENCE POPULATION, HAS BEEN CONFIRMED THE DECISION THRESHOLDFOR MS DIAGNOSIS. Performed By: #### C SHAWN, CMADM ####[facility] Dxivmkeriw0397 [place] [address]Dr. Marlin Gonzalez GHASSAN 121 ng/mL Critically high 9-82 [facility] Comment on above: Performed By: #### C SHAWN, CMADM ####[facility] Teojnjjxll2495 [place] [phone]. Marlin Gonzalez CBC AUTO DIFFon 11-04-2021 BASO # 0.0 103/ul Normal 0.0-0.1 [facility] Comment on above: Performed By: #### C BC ####[facility] Qowtaoglzw2612 [place] [address]Dr. Marlin Gonzalez Basophils/100 WBC (Bld) 0.2 % Normal 0.2-2.0 [facility] Comment on above: Performed By: #### C BC ####[facility] Jiappigemk1226 [place] [address]Dr. Marlin Gonzalez EO # 0.2 103/ul Normal 0.0-0.7 [facility] Comment on above: Performed By: #### C BC ####[facility] Dgsyobeela6750 [place] [address]Dr. Marlin Gonzalez Eosinophils/100 WBC (Bld) 2.0 % Normal 0.9-7.0 [facility] Comment on above: Performed By: #### C BC ####[facility] Mpyrvvbldn5177 [place] [address]Dr. Marlin Gonzalez Erythrocyte distribution width (RBC) [Ratio] 15.1 % Critically high 11.0-15.0 [facility] Comment on above: Performed By: #### C BC ####[facility] Pzvxoxlnat4025[address] [place], [place] [address]Dr. Marlin Gonzalez Hematocrit (Bld) [Volume fraction] 27.3 % Critically low 36.0-48.0 [facility] Comment on above: Performed By: #### C BC ####[facility] Frcdohdxoz6[address] [place], [place] [address]Dr. Marlin Gonzalez Hemoglobin (Bld) [Mass/Vol] 8.8 g/dL Critically low 12.0-16.0 [facility] Comment on above: Performed By: #### C BC ####[facility] Hdpacozhtg34[address] [place], [place] [address]Dr. Marlin Gonzalez IG # 0.05 10e3/ul Critically high 0.00-0.03 [facility] Comment on above: Performed By: #### C BC ####[facility] Otuvowzvfq105[address] [place], [place] [address]Dr. Marlin Gonzalez IG % 0.5 % Normal 0.0-0.5 [facility] Comment on above: Performed By: #### C BC ####[facility] Cwqnbvnugu[address] [place], [place] [address]Dr. Marlin Gonzalez LYMPH # 1.2 103/ul Normal 1.2-3.8 [facility] Comment on above: Performed By: #### C BC ####[facility] Fmpjruwhax45[address] [place], [place] [address]Dr. Marlin Gonzalez Lymphocytes/100 WBC (Bld) 10.9 % Critically low 20.5-60.0 [facility] Comment on above: Performed By: #### C BC ####[facility] Lsyxfjrwhc32[address] [place] [address]Dr. Marlin Gonzalez MANUAL DIFF REQ NO Normal [facility] Comment on above: Performed By: #### C BC ####[facility] Nnarpzhmfm9605 [place] [phone]. Marlin Gonzalez MCH (RBC) [Entitic mass] 30.6 pg Normal 26.7-34.0 [facility] Comment on above: Performed By: #### C BC ####[facility] Xqlixkatsa0997 [place] [address]Dr. Marlin Gonzalez MCHC (RBC) [Mass/Vol] 32.2 g/dL Normal 29.9-35.2 [facility] Comment on above: Performed By: #### C BC ####[facility] Dqoembakea[address] [place], [place] [address]Dr. Marlin Gonzalez MCV (RBC) [Entitic vol] 94.8 fL Normal 81.0-99.0 [facility] Comment on above: Performed By: #### C BC ####[facility] Tjgmcpudch2[address] [place], [place] [address]DrLucia Gonzalez MONO # 1.2 103/ul Critically high 0.3-0.8 [facility] Comment on above: Performed By: #### C BC ####[facility] Efijxsvzkw3843 [place] [address]Dr. Marlin Gonzalez Monocytes/100 WBC (Bld) 11.2 % Normal 1.7-12.0 [facility] Comment on above: Performed By: #### C BC ####[facility] Qldamzcczi640[address] [place], [place] [address]DrLucia Gonzalez NEUT # 8.0 103/ul Critically high 1.4-6.5 [facility] Comment on above: Performed By: #### C BC ####[facility] Vovdxbnsjx26[address] [place], [place] [address]DrLucia Gonzalez Neutrophils/100 WBC (Bld) 75.2 % Critically high 43.0-75.0 [facility] Comment on above: Performed By: #### C BC ####[facility] Xfxvsejufb7315 [place], [place] [address]Jr. Marlin Gonzalez Platelet mean volume (Bld) [Entitic vol] 10.4 fL Normal 9.5-13.5 [facility] Comment on above: Performed By: #### C BC ####[facility] O[address]xdzc[address] [place], [place] [address]Ts. Marlin oGnzalez PLT 172 103/ul Normal 150-450 [facility] Comment on above: Performed By: #### C BC ####[facility] Ioyhkecuqw3472 [place], [place] [address]Yt. Marlin Gonzalez RBC 2.88 106/ul Critically low 4.20-5.40 [facility] Comment on above: Performed By: #### C BC ####[facility] Cszfiydmfr0136 [place] [phone]. Marlin Gonzalez WBC 10.6 103/ul Normal 4.0-11.0 [facility] Comment on above: Performed By: #### C BC ####[facility] Nlyhrjjthi2632 [place], [place] [address]d. [address] CT CHEST WO CONon 11-04-2021 CT CHEST WO CON Normal [facility] Covid-19 PCR ([facility])on 10-12 SARS-CoV-2 (COVID-19) RNA MADISON+probe Ql (Unsp spec) Not detected Normal NOT DETECTED [facility] Comment on above: Result Comment: [...] for this test is supported by the Law Office Assistant of Health and Human Service's declaration that [...] be used). Performed By: #### C VDTB ####[facility] Dtpoyyfrux[address] [place], [place] [address]Dr. Marlin Gonzalez ER URINE PROFILEon 2 Bilirubin Ql (U) Negative Normal NEGATIVE [facility] Comment on above: Performed By: #### STEPAN VAZQUEZICRO ####[facility] Hwejkjylma[address] [place], [place] [address]Dr. Marlin Gonzalez Clarity (U) CLEAR Normal CLEAR [facility] Comment on above: Performed By: #### KANA VAZQUEZRO ####[facility] Blbgvjykmw9[address] [place], [place] [address]Dr. Marlin Gonzalez Color (U) LT. YELLOW Normal YELLOW [facility] Comment on above: Performed By: #### KANA VAZQUEZRO ####[facility] Hykgqhncjn[address] [place], [place] [address]Dr. Marlin Gonzalez ERUAHD A micrscopic examina tion will be performed if indicated. Normal [facility] Comment on above: Performed By: #### El [place]STER UMICRO ####[facility] Skqcgbyiif705[address] [place], [place] [address]Dr. Marlin Gonzalez Glucose Ql (U) Negative Normal NEGATIVE [facility] Comment on above: Performed By: #### [place] UMICRO ####[facility] Safcspygdw3019[address] [place], [place] [address]Dr. Marlin Gonzalez Hemoglobin Ql (U) Negative Normal NEGATIVE [facility] Comment on above: Performed By: #### KANA VAZQUEZRO ####[facility] Fjtjwociuq32[address] [place], [place] [address]Dr. Marlin Gonzalez Ketones Ql (U) Negative Normal NEGATIVE [facility] Comment on above: Performed By: #### KANA VAZQUEZRO ####[facility] Lshmhztwfy8992 [place] [address]Dr. Marlin Gonzalez LEUKOCYTES Negative Normal NEGATIVE [facility] Comment on above: Performed By: #### VIVIAN VAZQUEZ ####[facility] Faqcuuupgr8795 [place] [address]Dr. Marlin Gonzalez Nitrite Ql (U) Negative Normal NEGATIVE [facility] Comment on above: Performed By: #### VIVIAN VAZQUEZ ####[facility] Nahcfzrxch6167 [place] [address]Dr. Marlin Carlos pH (U) 6.0 [pH] Normal 5-9 [facility] Comment on above: Performed By: #### VIVIAN VAZQUEZ ####[facility] Gjrglnzbmw[address] [place], [place] [address]Dr. Marlin Gonzalez Protein (U) [Mass/Vol] 100 mg/dL Abnormal NEGAT SHEA/ TRACE [facility] Comment on above: Performed By: #### VIVIAN VAZQUEZ ####[facility] Wmmeszvvqz[address] [place], [place] [address]Dr. Katherinearmando Gonzalez SPEC GRAVITY 1.010 Normal 1.005-<=1.02 5 [facility] Comment on above: Performed By: #### VIVIAN VAZQUEZ ####[facility] Oyqzfmgece[address] [place], [place] [address]Dr. Marlin Carlos UR MICRO IND INDICATED Normal [facility] Comment on above: Performed By: #### VIVIAN VAZQUEZ ####[facility] Xxvqkkzlrg[address] [place], [place] [address]Dr. Marlin Carlos Urobilinogen Qn (U) 0.2 {Ryan'U}/dL Normal 0.2 - 1. 0 [facility] Comment on above: Performed By: #### VIVIAN VAZQUEZ ####[facility] Nbzopabuyy[address] [place], [place] [address]Dr. Marlin Gonzalez POINT OF CARE GLUCOSEon 09-2 Glucose [Mass/Vol] 165 mg/dL Critically high 74-106 [facility] Comment on above: Performed By: #### P OCGLUC ####[facility] Kvqusjuakp6352 [place] [id number]. Marlin Gonzalez PROF 14(COMP METB)on 022 Albumin [Mass/Vol] 2.9 g/dL Critically low 3.4-5.0 [facility] Comment on above: Performed By: #### C SHAWN, CMADM ####[facility] Xoyobyetpn3657 [place] [phone]. Marlin Gonzalez Albumin/Globulin [Mass ratio] 0.9 {ratio} Normal [facility] Comment on above: Performed By: #### C SHAWN, CMADM ####[facility] Ejrstnxlch8892 [place] [address]Dr. Marlin Gonzalez ALP [Catalytic activity/Vol] 118 U/L Critically high 46-116 [facility] Comment on above: Performed By: #### C SHAWN, CMADM ####[facility] Dhrxnodngc5657 [place] [address]Dr. Marlin Gonzalez ALT [Catalytic activity/Vol] 49 U/L Normal 14-59 [facility] Comment on above: Performed By: #### C SHAWN, CMADM ####[facility] Ntlsthebki7442 [place] [address]Dr. Marlin Gonzalez Anion gap [Moles/Vol] 12.3 mmol/L Normal [facility] Comment on above: Performed By: #### C SHAWN, CMADM ####[facility] Ywdckwjwue5814 [place] [address]Dr. Marlin Gonzalez AST [Catalytic activity/Vol] 28 U/L Normal 15-37 [facility] Comment on above: Performed By: #### C SHAWN, CMADM ####[facility] Vdsjwtbdfe6850 [place] [id number]. Marlin Gonzalez Bilirubin [Mass/Vol] 0.4 mg/dL Normal 0.2-1.0 [facility] Comment on above: Performed By: #### C SHAWN, CMADM ####[facility] Lnfmywweus7265 [place] [phone]. Marlin Gonzalez Calcium [Mass/Vol] 8.7 mg/dL Normal 8.5-10.1 [facility] Comment on above: Performed By: #### C SHAWN, CMADM ####[facility] Cfuarqeaad6779 [place] [address]Dr. Marlin Gonzalez Chloride [Moles/Vol] 98 mmol/L Normal 98-107 [facility] Comment on above: Performed By: #### C SHAWN, CMADM ####[facility] Yjhvwncqmt[address] [place], [place] [address]Dr. Marlin Gonzalez CO2 [Moles/Vol] 26.9 mmol/L Normal 21.0-32.0 [facility] Comment on above: Performed By: #### C SHAWN, CMALUISA ####[facility] Dqgupeommx[address] [place], [place] [address]Dr. Marlin Gonzalez Creatinine [Mass/Vol] 3.37 mg/dL Critically high 0.55-1.02 [facility] Comment on above: Performed By: #### C SHAWN, CMALUISA ####[facility] Xqoufleikj[address] [place], [place] [address]Dr. Marlin Gonzalez EGFR-AF AFGHAN 16 mL/min/1.73m2 Critically low >=60 [facility] Comment on above: Performed By: #### C SHAWN, FLOR ####[facility] Fmuliwasnw[address] [place], [place] [address]Dr. Marlin Gonzalez EGFR-NON AF AFGHAN 13 mL/min/1.73m2 Critically low >=60 [facility] Comment on above: Performed By: #### C SHAWN, CMADM ####[facility] Txeoofhjpx[address] [place], [place] [address]Dr. Marlin Gonzalez Globulin (S) [Mass/Vol] 3.4 g/dL Normal [facility] Comment on above: Performed By: #### C SHAWN, CMALUISA ####[facility] Jcsfvacmab80[address] [place], [place] [address]Dr. Marlin Gonzalez Glucose [Mass/Vol] 144 mg/dL Critically high 74-106 [facility] Comment on above: Performed By: #### C SHAWN, CMALUISA ####[facility] Beslvzjygb[address] [place], [place] [address]Dr. Marlin Gonzalez Potassium [Moles/Vol] 4.2 mmol/L Normal 3.5-5.1 [facility] Comment on above: Performed By: #### C SHAWN, FLOR ####[facility] Obgxowvvrq5736 [place] [address]Dr. Marlin Gonzalez Protein [Mass/Vol] 6.3 g/dL Critically low 6.4-8.2 [facility] Comment on above: Performed By: #### C SHAWN, FLOR ####[facility] Cxiiljuwhl5548 [place] [address]Dr. Marlin Gonzalez Sodium [Moles/Vol] 133 mmol/L Critically low 136-145 [facility] Comment on above: Performed By: #### C SHAWN, FLOR ####[facility] Xfilhgvguv3972 [place] [address]Dr. Marlin Gonzalez Urea nitrogen [Mass/Vol] 95.0 mg/dL Critically high 7.0-18.0 [facility] Comment on above: Performed By: #### C SHAWN, FLOR ####[facility] Nnuosaftto8246 [place] [address]Dr. Marlin Gonzalez Urea nitrogen/Creatinine [Mass ratio] 28.2 mg/mg Normal [facility] Comment on above: Performed By: #### C SHAWN, FLOR ####[facility] Pyuysxnfti5313 [place] [address]Dr. Katherinearmando Gonzalez URINE MICROSCOPIC ONLYon BACTERIA NONE SEEN Normal NONE SEEN [facility] Comment on above: Performed By: #### KANA VAZQUEZRO ####[facility] Ehhseihjty3293 [place] [address]Dr. Katherinearmando Gonzalez Bacteria identified Cx Nom (U) NOT INDICATED Normal [facility] Comment on above: Performed By: #### KANA VAZQUEZRO ####[facility] Eayqmndfin7953 [place] [address]Dr. Marlin Gonzalez CAST NONE SEEN Normal NONE SEEN [facility] Comment on above: Performed By: #### KANA VAZQUEZRO ####[facility] Mypgqhdyzu2320 [place] [address]Dr. Marlin Gonzalez Crystals LM Nom (Urine sed) NONE SEEN Normal NONE SEEN [facility] Comment on above: Performed By: #### VIVIAN VAZQUEZ ####[facility] Hgizcgzijm2940 [place] [address]Dr. Marlin Gonzalez Epithelial cells LM Ql (Urine sed) FEW Abnormal NONE SEEN /RARE [facility] Comment on above: Performed By: #### VIVIAN VAZQUEZ ####[facility] Ahxsmuwfph460[address] [place], [place] [address]Dr. Marlin Gonzalez MUCOUS NONE SEEN Normal NONE SEEN [facility] Comment on above: Performed By: #### VIVIAN VAZQUEZ ####[facility] Ofaskxcckm[address] [place], [place] [address]Dr. Marlin Gonzalez RBC NONE SEEN Abnormal 0-2 [facility] Comment on above: Performed By: #### VIVIAN VAZQUEZ ####[facility] Shabodlycg[address] [place], [place] [address]Dr. Marlin Gonzalez WBC 0-2 Abnormal NONE SEEN [facility] Comment on above: Performed By: #### VIVIAN VAZQUEZ ####[facility] Sgdilsdduc[address] [place], [place] [address]Dr. Marlin Gonzalez XR CHEST 1 Von 11-04-2021 XR CHEST 1 V Normal [facility] CBC AUTO DIFFon 10-21-2021 BASO # 0.0 103/ul Normal 0.0-0.1 [facility] Comment on above: Performed By: #### C BC ####[facility] Xxxrpgjxoa802[address] [place], [place] [address]Dr. Marlin Gonzalez Basophils/100 WBC (Bld) 0.1 % Critically low 0.2-2.0 [facility] Comment on above: Performed By: #### C BC ####[facility] Wppifgpsey[address] [place], [place] [address]Dr. Marlin Gonzalez EO # 0.0 103/ul Normal 0.0-0.7 [facility] Comment on above: Performed By: #### C BC ####[facility] Ritusilxbx3830 [place] [id number]. Marlin Gonzalez Eosinophils/100 WBC (Bld) 0.0 % Critically low 0.9-7.0 [facility] Comment on above: Performed By: #### C BC ####[facility] Joktghseqh8218 [place] [address]Dr. Marlin Gonzalez Erythrocyte distribution width (RBC) [Ratio] 14.0 % Normal 11.0-15.0 [facility] Comment on above: Performed By: #### C BC ####[facility] Abnoepnxnq17[address] [place], [place] [address]Dr. Marlin Gonzalez Hematocrit (Bld) [Volume fraction] 27.1 % Critically low 36.0-48.0 [facility] Comment on above: Performed By: #### C BC ####[facility] Vtktdfiyih[address] [place], [place] [address]Dr. Marlin Gonzalez Hemoglobin (Bld) [Mass/Vol] 8.7 g/dL Critically low 12.0-16.0 [facility] Comment on above: Performed By: #### C BC ####[facility] Ekmhjdmdre[address] [place], [place] [address]Dr. Marlin Gonzalez IG # 0.08 10e3/ul Critically high 0.00-0.03 [facility] Comment on above: Performed By: #### C BC ####[facility] Pgmixnmxbr88[address] [place], [place] [address]Dr. Marlin Gonzalez IG % 0.7 % Critically high 0.0-0.5 [facility] Comment on above: Performed By: #### C BC ####[facility] Ebgrkjoaas[address] [place], [place] [address]Dr. Marlin Gonzalez LYMPH # 0.3 103/ul Critically low 1.2-3.8 [facility] Comment on above: Performed By: #### C BC ####[facility] Bsyfujkfrb[address] [place], [place] [address]Dr. Marlin Gonzalez Lymphocytes/100 WBC (Bld) 2.8 % Critically low 20.5-60.0 [facility] Comment on above: Performed By: #### C BC ####[facility] Oghnaaagyj1674 [place] [phone]. Marlin Gonzalez MANUAL DIFF REQ NO Normal [facility] Comment on above: Performed By: #### C BC ####[facility] Jcdixcrvap4234 [place] [phone]. Marlin Gonzalez MCH (RBC) [Entitic mass] 30.1 pg Normal 26.7-34.0 [facility] Comment on above: Performed By: #### C BC ####[facility] Qrdyeqdyjm4431 [place] [phone]. Marlin Gonzalez MCHC (RBC) [Mass/Vol] 32.1 g/dL Normal 29.9-35.2 [facility] Comment on above: Performed By: #### C BC ####[facility] Hmrxflhgkk27[address] [place], [place] [address]Dr. Marlin Gonzalez MCV (RBC) [Entitic vol] 93.8 fL Normal 81.0-99.0 [facility] Comment on above: Performed By: #### C BC ####[facility] Ntmguvtmpl[address] [place], [place] [address]Dr. Marlin Gonzalez MONO # 0.4 103/ul Normal 0.3-0.8 [facility] Comment on above: Performed By: #### C BC ####[facility] Ckiujrjzda[address] [place], [place] [address]Dr. Marlin Gonzalez Monocytes/100 WBC (Bld) 3.5 % Normal 1.7-12.0 [facility] Comment on above: Performed By: #### C BC ####[facility] Btkmtqzoli50[address] [place], [place] [address]Dr. Marlin Gonzalez NEUT # 10.7 103/ul Critically high 1.4-6.5 [facility] Comment on above: Performed By: #### C BC ####[facility] Bjnahfhvlb[address] [place], [place] [address]Dr. Marlin Gonzalez Neutrophils/100 WBC (Bld) 92.9 % Critically high 43.0-75.0 [facility] Comment on above: Performed By: #### C BC ####[facility] Prrxjjupxj5426 [place] [phone]. Marlin Gonzalez Platelet mean volume (Bld) [Entitic vol] 9.5 fL Normal 9.5-13.5 [facility] Comment on above: Performed By: #### C BC ####[facility] Uswotiuobi8866 [place] [address]Dr. Marlin Gonzalez PLT 231 103/ul Normal 150-450 [facility] Comment on above: Performed By: #### C BC ####[facility] Gkxctdlmgq6025 [place] [address]Dr. Marlin Gonzalez RBC 2.89 106/ul Critically low 4.20-5.40 [facility] Comment on above: Performed By: #### C BC ####[facility] Ohybpywkrj7627 [place] [address]Dr. Marlin Gonzalez WBC 11.6 103/ul Critically high 4.0-11.0 [facility] Comment on above: Performed By: #### C BC ####[facility] Xgdidrwjgn6949 [place] [address]Dr. Marlin Gonzalez PROF CHEM 8 (BAS METB)on Anion gap [Moles/Vol] 16.2 mmol/L Normal [facility] Comment on above: Performed By: #### B MP ####[facility] Iytdfosrak9810 [place] [address]Dr. Marlin Gonzalez Calcium [Mass/Vol] 8.7 mg/dL Normal 8.5-10.1 [facility] Comment on above: Performed By: #### B MP ####[facility] Erupcpajwt4737 [place] [address]Dr. Marlin Gonzalez Chloride [Moles/Vol] 95 mmol/L Critically low 98-107 [facility] Comment on above: Performed By: #### B MP ####[facility] Amidvtingv1129 [place] [address]DrLucia Gonzalez CO2 [Moles/Vol] 24.0 mmol/L Normal 21.0-32.0 [facility] Comment on above: Performed By: #### B MP ####[facility] Fxqokrqtqw5267 [place] [phone]. Marlin Gonzalez Creatinine [Mass/Vol] 2.90 mg/dL Critically high 0.55-1.02 [facility] Comment on above: Performed By: #### B MP ####[facility] Dnflzvpchl0902 [place] [phone]. Katherinearmando Carlos EGFR-AF AFGHAN 19 mL/min/1.73m2 Critically low >=60 [facility] Comment on above: Performed By: #### B MP ####[facility] Nlrfellzlq7250 [place] [phone]. Katherinearmando Carlos EGFR-NON AF AFGHAN 16 mL/min/1.73m2 Critically low >=60 [facility] Comment on above: Performed By: #### B MP ####[facility] Bfznoucles0029 [place] [address]Dr. Marlin Gonzalez Glucose [Mass/Vol] 240 mg/dL Critically high 74-106 [facility] Comment on above: Performed By: #### B MP ####[facility] Wwlydvwbjo4928 [place] [phone]. Marlin Gonzalez Potassium [Moles/Vol] 4.2 mmol/L Normal 3.5-5.1 [facility] Comment on above: Performed By: #### B MP ####[facility] Dxrpiuwvgi4559 [place] [address]Dr. Marlin Gonzalez Sodium [Moles/Vol] 131 mmol/L Critically low 136-145 [facility] Comment on above: Performed By: #### B MP ####[facility] Yqdvyedytu0848 [place] [phone]. Marlin Gonzalez Urea nitrogen [Mass/Vol] 100.0 mg/dL Critically high 7.0-18.0 [facility] Comment on above: Performed By: #### B MP ####[facility] Syourmdzrd8601 [place] [phone]. Marlin Gonzalez Urea nitrogen/Creatinine [Mass ratio] 34.5 mg/mg Normal [facility] Comment on above: Performed By: #### B MP ####[facility] Tsrhmkkgqc[address] [place], [place] [address]Dr. Marlin Gonzalez BNPon 10-20-2021 Natriuretic peptide B (Bld) [Mass/Vol] 35291.0 pg/mL Critically high <=900.0 [facility] Comment on above: Performed By: #### B MATERIAL LOADER ####[facility] Wnhwrphaul[address] [place], [place] [address]Dr. Marlin Gonzalez CBC AUTO DIFFon 10-20-2021 BASO # 0.0 103/ul Normal 0.0-0.1 [facility] Comment on above: Performed By: #### C BC ####[facility] M[address]qrsqzfhp75[address] [place], [place] [address]Dr. Marlin Gonzalez Basophils/100 WBC (Bld) 0.0 % Critically low 0.2-2.0 [facility] Comment on above: Performed By: #### C BC ####[facility] Wbfqmmfrmy[address] [place], [place] [address]Dr. Marlin Gonzalez EO # 0.0 103/ul Normal 0.0-0.7 [facility] Comment on above: Performed By: #### C BC ####[facility] Pfyffvnxfx[address] [place], [place] [address]Dr. Katherinearmando Gonzalez Eosinophils/100 WBC (Bld) 0.0 % Critically low 0.9-7.0 [facility] Comment on above: Performed By: #### C BC ####[facility] Dmgesrhqyc[address] [place], [place] [address]Dr. Marlin Gonzalez Erythrocyte distribution width (RBC) [Ratio] 14.3 % Normal 11.0-15.0 [facility] Comment on above: Performed By: #### C BC ####[facility] Tcsmfltenh[address] [place], [place] [address]Dr. Marlin Gonzalez Hematocrit (Bld) [Volume fraction] 27.2 % Critically low 36.0-48.0 [facility] Comment on above: Performed By: #### C BC ####[facility] Zjgjubnnzd2334 [place] [address]Dr. Marlin Gonzalez Hemoglobin (Bld) [Mass/Vol] 8.7 g/dL Critically low 12.0-16.0 [facility] Comment on above: Performed By: #### C BC ####[facility] Qxrohzwrqw6172 [place] [phone]. Marlin Gonzalez IG # 0.04 10e3/ul Critically high 0.00-0.03 [facility] Comment on above: Performed By: #### C BC ####[facility] Illgygqeby9920 [place] [address]Dr. Marlin Gonzalez IG % 0.6 % Critically high 0.0-0.5 [facility] Comment on above: Performed By: #### C BC ####[facility] Axjrjpqqln1167 [place] [address]Dr. Marlin Gonzalez LYMPH # 0.4 103/ul Critically low 1.2-3.8 [facility] Comment on above: Performed By: #### C BC ####[facility] Ciuylxnrvk7315 [place] [address]Dr. Marlin Gonzalez Lymphocytes/100 WBC (Bld) 5.2 % Critically low 20.5-60.0 [facility] Comment on above: Performed By: #### C BC ####[facility] Svlhjplrai0261 [place] [address]Dr. Marlin Gonzalez MANUAL DIFF REQ NO Normal [facility] Comment on above: Performed By: #### C BC ####[facility] Apgmvohsgk1294 [place] [address]Dr. Marlin Gonzalez MCH (RBC) [Entitic mass] 30.2 pg Normal 26.7-34.0 [facility] Comment on above: Performed By: #### C BC ####[facility] Mzmdsuhwvu67[address] [place], [place] [address]Dr. Marlin Gonzalez MCHC (RBC) [Mass/Vol] 32.0 g/dL Normal 29.9-35.2 [facility] Comment on above: Performed By: #### C BC ####[facility] Xaonuuiebp6342 [place] [phone]. Marlin Gonzalez MCV (RBC) [Entitic vol] 94.4 fL Normal 81.0-99.0 [facility] Comment on above: Performed By: #### C BC ####[facility] Nqcqfzbdis3632 [place] [phone]. Marlin Gonzalez MONO # 0.2 103/ul Critically low 0.3-0.8 [facility] Comment on above: Performed By: #### C BC ####[facility] Dzuefsntoy8831 [place] [address]Dr. Marlin Gonzalez Monocytes/100 WBC (Bld) 2.6 % Normal 1.7-12.0 [facility] Comment on above: Performed By: #### C BC ####[facility] Jbnyhxifmy[address] [place], [place] [address]Dr. Marlin Gonzalez NEUT # 6.3 103/ul Normal 1.4-6.5 [facility] Comment on above: Performed By: #### C BC ####[facility] Uwoioidqde[address] [place], [place] [address]Dr. Marlin Gonzalez Neutrophils/100 WBC (Bld) 91.6 % Critically high 43.0-75.0 [facility] Comment on above: Performed By: #### C BC ####[facility] Ovfubhtnjl[address] [place], [place] [address]Dr. Marlin Gonzalez Platelet mean volume (Bld) [Entitic vol] 9.5 fL Normal 9.5-13.5 [facility] Comment on above: Performed By: #### C BC ####[facility] Fvorimtsfp5222 [place] [phone]. Marlin Gonzalez PLT 229 103/ul Normal 150-450 [facility] Comment on above: Performed By: #### C BC ####[facility] Eqemygnmbq49[address] [place], [place] [address]Dr. Marlin Gonzalez RBC 2.88 106/ul Critically low 4.20-5.40 [facility] Comment on above: Performed By: #### C BC ####[facility] Yiidufxyrs5058 [place] [address]Dr. Marlin Gonzalez WBC 6.9 103/ul Normal 4.0-11.0 [facility] Comment on above: Performed By: #### C BC ####[facility] Dxdsnczeoi4934 [place] [address]Dr. Marlin Gonzalez POINT OF CARE GLUCOSEon 10-11 Glucose [Mass/Vol] 254 mg/dL Critically high -106 [facility] Comment on above: Performed By: #### P OCGLUC ####[facility] Chsdaecysh7764 [place] [address]Dr. Marlin Gonzalez Glucose [Mass/Vol] 331 mg/dL Critically high -106 [facility] Comment on above: Performed By: #### P OCGLUC ####[facility] Wxkkudtckl[address] [place], [place] [address]Dr. Marlin Gonzalez Glucose [Mass/Vol] 429 mg/dL Critically high -106 [facility] Comment on above: Performed By: #### P OCGLUC ####[facility] Leqngnosdm4670 [place] [address]Dr. Marlin Gonzalez Glucose [Mass/Vol] 412 mg/dL Critically high -106 [facility] Comment on above: Performed By: #### P OCGLUC ####[facility] Rtsosoepyk6919 [place] [address]Dr. Marlin Gonzalez PROF CHEM 8 (BAS METB)on Anion gap [Moles/Vol] 16.3 mmol/L Normal [facility] Comment on above: Performed By: #### B MP ####[facility] Xoobvbnfai5486 [place] [address]Dr. Marlin Gonzalez Calcium [Mass/Vol] 8.8 mg/dL Normal 8.5-10.1 [facility] Comment on above: Performed By: #### B MP ####[facility] Dcbeumvhjz4482 [place] [address]Dr. Marlin Gonzalez Chloride [Moles/Vol] 95 mmol/L Critically low 98-107 [facility] Comment on above: Performed By: #### B MP ####[facility] Gmiijowtuk4128 [place] [phone]. Marlin Gonzalez CO2 [Moles/Vol] 22.6 mmol/L Normal 21.0-32.0 [facility] Comment on above: Performed By: #### B MP ####[facility] Yjlllrdklw1249 [place] [address]Dr. Marlin Gonzalez Creatinine [Mass/Vol] 2.96 mg/dL Critically high 0.55-1.02 [facility] Comment on above: Performed By: #### B MP ####[facility] Zyihrxwnli2722 [place] [address]Dr. Katherinearmando Carlos EGFR-AF AFGHAN 19 mL/min/1.73m2 Critically low >=60 [facility] Comment on above: Performed By: #### B MP ####[facility] Tvmhrpzpmq[address] [place], [place] [address]Dr. Marlin Gonzalez EGFR-NON AF AFGHAN 15 mL/min/1.73m2 Critically low >=60 [facility] Comment on above: Performed By: #### B MP ####[facility] Osomtrdzfx9[address] [place], [place] [address]Dr. Katherinearmando Carlos Glucose [Mass/Vol] 389 mg/dL Critically high 74-106 [facility] Comment on above: Performed By: #### B MP ####[facility] Omdkwowagb[address] [place], [place] [address]Dr. Marlin Gonzalez Potassium [Moles/Vol] 3.9 mmol/L Normal 3.5-5.1 [facility] Comment on above: Performed By: #### B MP ####[facility] Dinfmieaju20[address] [place], [place] [address]Dr. Marlin Gonzalez Sodium [Moles/Vol] 130 mmol/L Critically low 136-145 [facility] Comment on above: Performed By: #### B MP ####[facility] Kpvztbqika[address] [place], [place] [address]Dr. Marlin Gonzalez Urea nitrogen [Mass/Vol] 87.0 mg/dL Critically high 7.0-18.0 [facility] Comment on above: Performed By: #### B MP ####[facility] Qsioewngdc46[address] [place], [place] [address]Dr. Marlin Gonzalez Urea nitrogen/Creatinine [Mass ratio] 29.4 mg/mg Normal [facility] Comment on above: Performed By: #### B MP ####[facility] Ilsiwwqvmi36[address] [place], [place] [address]Dr. Marlin Gonzalez XR CHEST 2 Von 10-20-2021 XR CHEST 2 V Normal [facility] BNPon 10-19-2021 Natriuretic peptide B (Bld) [Mass/Vol] 84814.0 pg/mL Critically high <=900.0 [facility] Comment on above: Performed By: #### B MATERIAL LOADER, HSTROPN, CMP ####[facility] Wmshsajcoh[address] [place], [place] [address]Dr. Marlin Carlos CBC AUTO DIFFon 10-19-2021 BASO # 0.1 103/ul Normal 0.0-0.1 [facility] Comment on above: Performed By: #### C BC ####[facility] Xvpeoiwavu[address] [place], [place] [address]Dr. Marlin Carlos Basophils/100 WBC (Bld) 0.4 % Normal 0.2-2.0 [facility] Comment on above: Performed By: #### C BC ####[facility] Qmaisdgzea11[address] [place], [place] [address]Dr. Marlin Gonzalez EO # 0.4 103/ul Normal 0.0-0.7 [facility] Comment on above: Performed By: #### C BC ####[facility] Vollvtmsow[address] [place], [place] [address]Dr. Marlin Carlos Eosinophils/100 WBC (Bld) 2.6 % Normal 0.9-7.0 [facility] Comment on above: Performed By: #### C BC ####[facility] Zxewwvouiv29[address] [place], [place] [address]Dr. Marlin Gonzalez Erythrocyte distribution width (RBC) [Ratio] 14.6 % Normal 11.0-15.0 [facility] Comment on above: Performed By: #### C BC ####[facility] Bwdpcflxfd0090 [place] [address]Dr. Katherinearmando Gonzalez Hematocrit (Bld) [Volume fraction] 31.4 % Critically low 36.0-48.0 [facility] Comment on above: Performed By: #### C BC ####[facility] Xxqwwmjeqo6577 [place] [address]Dr. Marlin Gonzalez Hemoglobin (Bld) [Mass/Vol] 10.0 g/dL Critically low 12.0-16.0 [facility] Comment on above: Performed By: #### C BC ####[facility] Zmmxxxhssj25[address] [place], [place] [address]Dr. Marlin Gonzalez IG # 0.07 10e3/ul Critically high 0.00-0.03 [facility] Comment on above: Performed By: #### C BC ####[facility] Sleufqoksi6[address] [place], [place] [address]Dr. Marlin Gonzalez IG % 0.5 % Normal 0.0-0.5 [facility] Comment on above: Performed By: #### C BC ####[facility] Jsrdnggxwl39[address] [place], [place] [address]Dr. Marlin Gonzalez LYMPH # 1.4 103/ul Normal 1.2-3.8 [facility] Comment on above: Performed By: #### C BC ####[facility] Bgjidxmgjx99[address] [place], [place] [address]Dr. Marlin Gonzalez Lymphocytes/100 WBC (Bld) 10.1 % Critically low 20.5-60.0 [facility] Comment on above: Performed By: #### C BC ####[facility] Rwtzkzcooc65[address] [place], [place] [address]Dr. Marlin Gonzalez MANUAL DIFF REQ NO Normal [facility] Comment on above: Performed By: #### C BC ####[facility] Jpprcpakun75[address] [place], [place] [address]Dr. Marlin Gonzalez MCH (RBC) [Entitic mass] 30.5 pg Normal 26.7-34.0 [facility] Comment on above: Performed By: #### C BC ####[facility] Lbbcsscvze8526 [place] [phone]. Marlin Gonzalez MCHC (RBC) [Mass/Vol] 31.8 g/dL Normal 29.9-35.2 [facility] Comment on above: Performed By: #### C BC ####[facility] Sdkqrmhmvb9405 [place] [phone]. Marlin Gonzalez MCV (RBC) [Entitic vol] 95.7 fL Normal 81.0-99.0 [facility] Comment on above: Performed By: #### C BC ####[facility] Xvxkjezlvp[address] [place], [place] [address]Dr. Marlin Gonzalez MONO # 1.2 103/ul Critically high 0.3-0.8 [facility] Comment on above: Performed By: #### C BC ####[facility] Gfcxjiczpi15[address] [place], [place] [address]Dr. Katherinearmando Gonzalez Monocytes/100 WBC (Bld) 9.0 % Normal 1.7-12.0 [facility] Comment on above: Performed By: #### C BC ####[facility] Diioahwpjf143[address] [place], [place] [address]Dr. Marlin Gonzalez NEUT # 10.5 103/ul Critically high 1.4-6.5 [facility] Comment on above: Performed By: #### C BC ####[facility] Auwmtpeiws39[address] [place], [place] [address]Dr. Katherinearmando Gonzalez Neutrophils/100 WBC (Bld) 77.4 % Critically high 43.0-75.0 [facility] Comment on above: Performed By: #### C BC ####[facility] Zpsirtbopt337[address] [place], [place] [address]Dr. Marlin Carlos Platelet mean volume (Bld) [Entitic vol] 9.7 fL Normal 9.5-13.5 [facility] Comment on above: Performed By: #### C BC ####[facility] Siyjxwcwoh[address] [place], [place] [address]Dr. Marlin Gonzalez PLT 291 103/ul Normal 150-450 [facility] Comment on above: Performed By: #### C BC ####[facility] Vwmatxapke1896 [place], [place] [address]Rm. Marlin Gonzalez RBC 3.28 106/ul Critically low 4.20-5.40 [facility] Comment on above: Performed By: #### C BC ####[facility] Cfgzhuqomd3085 [place], [place] [address]Gc. Marlin Gonzalez WBC 13.5 103/ul Critically high 4.0-11.0 [facility] Comment on above: Performed By: #### C BC ####[facility] Msryrrrxhz8206 [place], [place] [address]Hg. Marlin Gonzalez CULTURE BLOODon 10-19-2021 Microscopic examination of blood, culture Culture Observations: NO GROWTH AT 5 DAYS. Normal [facility] Comment on above: Performed By: #### B LDCX2 ####[facility] Dpqhlxidfc5655 [place], [place] [address]Tk. Marlin Gonzalez Microscopic examination of blood, culture Culture Observations: NO GROWTH AT 5 DAYS. Normal [facility] Comment on above: Performed By: #### B LDCX1 ####[facility] Jjncqndwyd9721 [place], [place] [address]Cn. Marlin Gonzalez Covid-19 PCR ([facility])on SARS-CoV-2 (COVID-19) RNA [place]+probe Ql (Unsp spec) Not detected Normal NOT DETECTED [facility] Comment on above: Result Comment: [...] for this test is supported by the Law Office Assistant of Health and Human Service's declaration that [...] be used). Performed By: #### C VDTBH ####[facility] Iccvzlixti0547 [place] [address]Dr. Marlin Gonzalez ECHO LIMITED STUDYon 022 ECHO LIMITED STUDY Normal [facility] POINT OF CARE GLUCOSEon Glucose [Mass/Vol] 267 mg/dL Critically high 74-106 [facility] Comment on above: Performed By: #### P OCGLUC ####[facility] Knrhfbkxnp9902 [place] [address]Dr. Marlin Gonzalez Glucose [Mass/Vol] 243 mg/dL Critically high 74-106 [facility] Comment on above: Performed By: #### P OCGLUC ####[facility] Todaesjroy4450 [place] [address]Dr. Marlin Gonzalez PROF 14(COMP METB)on 022 Albumin [Mass/Vol] 3.4 g/dL Normal 3.4-5.0 [facility] Comment on above: Performed By: #### B MATERIAL LOADER, HSTROPN, CMP ####[facility] Vjxrbinnkc[address] [place], [place] [address]Dr. Marlin Gonzalez Albumin/Globulin [Mass ratio] 0.9 {ratio} Normal [facility] Comment on above: Performed By: #### B MATERIAL LOADER, HSTROPN, CMP ####[facility] Bhemudwjed7314 [place] [address]Dr. Marlin Gonzalez ALP [Catalytic activity/Vol] 126 U/L Critically high 46-116 [facility] Comment on above: Performed By: #### B MATERIAL LOADER, HSTROPN, CMP ####[facility] [address] [place] [address]Dr. Marlin Gonzalez ALT [Catalytic activity/Vol] 45 U/L Normal 14-59 [facility] Comment on above: Performed By: #### B MATERIAL LOADER, HSTROPN, CMP ####[facility] Dxdfnpktei[address] [place] [address]Dr. Marlin Gonzalez Anion gap [Moles/Vol] 18.0 mmol/L Normal Th e [facility] Comment on above: Performed By: #### B MATERIAL LOADER, HSTROPN, CMP ####[facility] [address]emhc[address] [place] [address]Dr. Marlin Gonzalez AST [Catalytic activity/Vol] 24 U/L Normal 15-37 [facility] Comment on above: Performed By: #### B MATERIAL LOADER, HSTROPN, CMP ####[facility] Yifondfuws[address] [place] [address]Dr. Marlin Gonzalez Bilirubin [Mass/Vol] 0.4 mg/dL Normal 0.2-1.0 [facility] Comment on above: Performed By: #### B MATERIAL LOADER, HSTROPN, CMP ####[facility] Mibyzmlpgm[address] [place], [place] [address]Dr. Marlin Gonzalez Calcium [Mass/Vol] 9.4 mg/dL Normal 8.5-10.1 [facility] Comment on above: Performed By: #### B MATERIAL LOADER, HSTROPN, CMP ####[facility] G[address]ixvhfqu[address] [place], [place] [address]Dr. Marlin Gonzalez Chloride [Moles/Vol] 97 mmol/L Critically low 98-107 [facility] Comment on above: Performed By: #### B MATERIAL LOADER, HSTROPN, CMP ####[facility] Vumxuusj[address] [place], [place] [address]Dr. Marlin Gonzalez CO2 [Moles/Vol] 24.0 mmol/L Normal 21.0-32.0 [facility] Comment on above: Performed By: #### B MATERIAL LOADER, HSTROPN, CMP ####[facility] Rszmjmwmdj[address] [place], [place] [address]Dr. Marlin Gonzalez Creatinine [Mass/Vol] 2.83 mg/dL Critically high 0.55-1.02 [facility] Comment on above: Performed By: #### B MATERIAL LOADER, HSTROPN, CMP ####[facility] [address]weovixxvz[address] [place] [address]Dr. Marlin Gonzalez EGFR-AF AFGHAN 20 mL/min/1.73m2 Critically low >=60 [facility] Comment on above: Performed By: #### B MATERIAL LOADER, HSTROPN, CMP ####[facility] Qjzrboxkdi[address] [place] [address]Dr. Marlin Gonzalez EGFR-NON AF AFGHAN 16 mL/min/1.73m2 Critically low >=60 [facility] Comment on above: Performed By: #### B MATERIAL LOADER, HSTROPN, CMP ####[facility] Nvukitrwqf[address] [place], [place] [address]Dr. Marlin Gonzalez Globulin (S) [Mass/Vol] 3.7 g/dL Normal [facility] Comment on above: Performed By: #### B MATERIAL LOADER, HSTROPN, CMP ####[facility] Lvpuofoubn[address] [place], [place] [address]Dr. Marlin Gonzalez Glucose [Mass/Vol] 90 mg/dL Normal 74-106 [facility] Comment on above: Performed By: #### B MATERIAL LOADER, HSTROPN, CMP ####[facility] Pvdbmatwfo5[address] [place], [place] [address]Dr. Marlin Gonzalez Potassium [Moles/Vol] 4.0 mmol/L Normal 3.5-5.1 [facility] Comment on above: Performed By: #### B MATERIAL LOADER, HSTROPN, CMP ####[facility] Svhqsnjttw[address] [place], [place] [address]Dr. Marlin Gonzalez Protein [Mass/Vol] 7.1 g/dL Normal 6.4-8.2 [facility] Comment on above: Performed By: #### B MATERIAL LOADER, HSTROPN, CMP ####[facility] Sbawqejolx[address] [place], [place] [address]Dr. Marlin Gonzalez Sodium [Moles/Vol] 135 mmol/L Critically low 136-145 [facility] Comment on above: Performed By: #### B MATERIAL LOADER, HSTROPN, CMP ####[facility] Xszelsvzmb[address] [place], [place] [address]Dr. Marlin Gonzalez Urea nitrogen [Mass/Vol] 81.0 mg/dL Critically high 7.0-18.0 [facility] Comment on above: Performed By: #### B MATERIAL LOADER, HSTROPN, CMP ####[facility] [address] [place] [phone]. Marlin Gonzalez Urea nitrogen/Creatinine [Mass ratio] 28.6 mg/mg Normal [facility] Comment on above: Performed By: #### B MATERIAL LOADER, HSTROPN, CMP ####[facility] X[address]zcfqnl[address] [place] [phone]. Marlin Carlos TROPONIN, HIGH SENSITIVITYon 10-19-2021 HSTROP 23.7 pg/mL Normal 4.0-51.3 [facility] Comment on above: Result Comment: CUT- OFF POINTS HAVE BEEN ESTABLISHED BASED ON THE FOURTH UNIVERSAL DEFINITIONS OF MYOCARDIALINFARCTION. THE UPPER REFERENCE LIMIT (URL) OF TROPONIN, DEFINED THE 99TH PERCENTILE OFcTnI DISTRIBUTION IN A REFERENCE POPULATION, HAS BEEN CONFIRMED THE DECISION THRESHOLDFOR MS DIAGNOSIS. Performed By: #### B MATERIAL LOADER, HSTROPN, CMP ####[facility] [address]xumqbwt[address] [place] [address]Dr. Marlin Carlos XR CHEST 1 Von 10-19-2021 XR CHEST 1 V Normal [facility] BNPon 09-02-2021 Natriuretic peptide B (Bld) [Mass/Vol] 06241.0 pg/mL Critically high <=900.0 [facility] Comment on above: Performed By: #### B MATERIAL LOADER, CMP ####[facility] [address]wcw[address] [place] [phone]. Marlin Carlos CBC AUTO DIFFon 09-02-2021 BASO # 0.0 103/ul Normal 0.0-0.1 [facility] Comment on above: Performed By: #### C BC ####[facility] [address]dtq[address] [place] [phone]. Katherinearmando Gonzalez Basophils/100 WBC (Bld) 0.0 % Critically low 0.2-2.0 [facility] Comment on above: Performed By: #### C BC ####[facility] F[address]qphqb3[address] [place] [phone]. Marlin Gonzalez EO # 0.0 103/ul Normal 0.0-0.7 [facility] Comment on above: Performed By: #### C BC ####[facility] [address]zqdettaui[address] [place] [address]Dr. Marlin Gonzalez Eosinophils/100 WBC (Bld) 0.0 % Critically low 0.9-7.0 [facility] Comment on above: Performed By: #### C BC ####[facility] Inyhbywlvz42[address] [place] [address]Dr. Marlin Gonzalez Erythrocyte distribution width (RBC) [Ratio] 14.3 % Normal 11.0-15.0 [facility] Comment on above: Performed By: #### C BC ####[facility] Jqygntujde[address] [place], [place] [address]Dr. Marlin Gonzalez Hematocrit (Bld) [Volume fraction] 32.3 % Critically low 36.0-48.0 [facility] Comment on above: Performed By: #### C BC ####[facility] Gvolcoojzg[address] [place], [place] [address]Dr. Marlin Gonzalez Hemoglobin (Bld) [Mass/Vol] 10.2 g/dL Critically low 12.0-16.0 [facility] Comment on above: Performed By: #### C BC ####[facility] Izpfamfmoq[address] [place], [place] [address]Dr. Marlin Gonzalez IG # 0.06 10e3/ul Critically high 0.00-0.03 [facility] Comment on above: Performed By: #### C BC ####[facility] Lcwgmwzkig[address] [place], [place] [address]Dr. Marlin Gonzalez IG % 0.5 % Normal 0.0-0.5 [facility] Comment on above: Performed By: #### C BC ####[facility] Auhhzeyjgy[address] [place], [place] [address]DrLucia Marlin Gonzalez LYMPH # 1.0 103/ul Critically low 1.2-3.8 [facility] Comment on above: Performed By: #### C BC ####[facility] Cuzvexbcbz[address] [place], [place] [address]Dr. Marlin Gonzalez Lymphocytes/100 WBC (Bld) 8.6 % Critically low 20.5-60.0 [facility] Comment on above: Performed By: #### C BC ####[facility] [address]rmshkwu[address] [place] [address]DrLucia Gonzalez MANUAL DIFF REQ NO Normal [facility] Comment on above: Performed By: #### C BC ####[facility] Xbdolqzbor5[address] [place] [phone]. Marlin Gonzalez MCH (RBC) [Entitic mass] 29.4 pg Normal 26.7-34.0 [facility] Comment on above: Performed By: #### C BC ####[facility] Fgdufhjsvo50[address] [place] [address]Dr. Marlin Gonzalez MCHC (RBC) [Mass/Vol] 31.6 g/dL Normal 29.9-35.2 [facility] Comment on above: Performed By: #### C BC ####[facility] Yzdudoriwr[address] [place], [place] [address]DrLucia Gonzalez MCV (RBC) [Entitic vol] 93.1 fL Normal 81.0-99.0 [facility] Comment on above: Performed By: #### C BC ####[facility] Wntukwrcui84[address] [place], [place] [address]DrLucia Gonzalez MONO # 0.8 103/ul Normal 0.3-0.8 [facility] Comment on above: Performed By: #### C BC ####[facility] Rdyryszrmm[address] [place], [place] [address]DrLucia Gonzalez Monocytes/100 WBC (Bld) 7.5 % Normal 1.7-12.0 [facility] Comment on above: Performed By: #### C BC ####[facility] Lzqndkvjhr[address] [place], [place] [address]DrLucia Gonzalez NEUT # 9.3 103/ul Critically high 1.4-6.5 [facility] Comment on above: Performed By: #### C BC ####[facility] Ygzmsiqdzn[address] [place], [place] [address]DrLucia Gonzalez Neutrophils/100 WBC (Bld) 83.4 % Critically high 43.0-75.0 [facility] Comment on above: Performed By: #### C BC ####[facility] [address] [place] [address]Dr. Marlin Gonzalez Platelet mean volume (Bld) [Entitic vol] 9.9 fL Normal 9.5-13.5 [facility] Comment on above: Performed By: #### C BC ####[facility] Iwgizprdfo6[address] [place] [address]Dr. Marlin Carlos PLT 247 103/ul Normal 150-450 [facility] Comment on above: Performed By: #### C BC ####[facility] Jsionhekwg[address] [place] [address]Dr. Marlin Gonzalez RBC 3.47 106/ul Critically low 4.20-5.40 [facility] Comment on above: Performed By: #### C BC ####[facility] Nwntajnavi27[address] [place] [address]Dr. Marlin Gonzalez WBC 11.2 103/ul Critically high 4.0-11.0 [facility] Comment on above: Performed By: #### C BC ####[facility] Hmnqdfrzso37[address] [place] [address]DrLucia Gonzalez POINT OF CARE GLUCOSEon 08-11 Glucose [Mass/Vol] 175 mg/dL Critically high 74-106 [facility] Comment on above: Performed By: #### P OCGLUC ####[facility] Bwpykfqqqs48[address] [place] [address]Dr. Marlin Gonzalez Glucose [Mass/Vol] 73 mg/dL Critically low 74-106 [facility] Comment on above: Performed By: #### P OCGLUC ####[facility] Xcpfmyvfzy6[address] [place] [address]Dr. Marlin Gonzalez Glucose [Mass/Vol] 70 mg/dL Critically low 74-106 [facility] Comment on above: Performed By: #### P OCGLUC ####[facility] Rlboclawpl[address] [place], [place] [address]DrLucia Gonzalez PROF 14(COMP METB)on 07-24-2 022 Albumin [Mass/Vol] 3.0 g/dL Critically low 3.4-5.0 [facility] Comment on above: Performed By: #### B MATERIAL LOADER, CMP ####[facility] Xflskuhjwk64[address] [place] [address]Dr. Marlin Gonzalez Albumin/Globulin [Mass ratio] 0.9 {ratio} Normal [facility] Comment on above: Performed By: #### B MATERIAL LOADER, CMP ####[facility] Fxwtevjcbf87[address] [place] [address]Dr. Marlin Gonzalez ALP [Catalytic activity/Vol] 90 U/L Normal 46-116 [facility] Comment on above: Performed By: #### B MATERIAL LOADER, CMP ####[facility] Jwuewgxyxr[address] [place], [place] [address]Dr. Marlin Gonzalez ALT [Catalytic activity/Vol] 43 U/L Normal 14-59 [facility] Comment on above: Performed By: #### B MATERIAL LOADER, CMP ####[facility] Smdubghnld[address] [place], [place] [address]Dr. Marlin Gonzalez Anion gap [Moles/Vol] 13.0 mmol/L Normal [facility] Comment on above: Performed By: #### B MATERIAL LOADER, CMP ####[facility] Jmsnjipyar[address] [place], [place] [address]Dr. Marlin Gonzalez AST [Catalytic activity/Vol] 24 U/L Normal 15-37 [facility] Comment on above: Performed By: #### B MATERIAL LOADER, CMP ####[facility] Fciqztnasl[address] [place], [place] [address]Dr. Marlin Gonzalez Bilirubin [Mass/Vol] 0.2 mg/dL Normal 0.2-1.0 [facility] Comment on above: Performed By: #### B MATERIAL LOADER, CMP ####[facility] Bmmwmfdwxg[address] [place], [place] [address]Dr. Marlin Gonzalez Calcium [Mass/Vol] 8.9 mg/dL Normal 8.5-10.1 [facility] Comment on above: Performed By: #### B MATERIAL LOADER, CMP ####[facility] Zjzjpyzypq[address] [place], [place] [address]Dr. Marlin Gonzalez Chloride [Moles/Vol] 100 mmol/L Normal 98-107 [facility] Comment on above: Performed By: #### B MATERIAL LOADER, CMP ####[facility] Lenlhclfbf312[address] [place], [place] [address]Dr. Marlin Gonzalez CO2 [Moles/Vol] 24.3 mmol/L Normal 21.0-32.0 [facility] Comment on above: Performed By: #### B MATERIAL LOADER, CMP ####[facility] Acibmfcncq[address] [place], [place] [address]Dr. Marlin Gonzalez Creatinine [Mass/Vol] 3.25 mg/dL Critically high 0.55-1.02 [facility] Comment on above: Performed By: #### B MATERIAL LOADER, CMP ####[facility] Txjbuldnuc[address] [place], [place] [address]Dr. Marlin Gonzalez EGFR-AF AFGHAN 17 mL/min/1.73m2 Critically low >=60 [facility] Comment on above: Performed By: #### B MATERIAL LOADER, CMP ####[facility] Pqauuuvuyf[address] [place], [place] [address]Dr. Marlin Gonzalez EGFR-NON AF AFGHAN 14 mL/min/1.73m2 Critically low >=60 [facility] Comment on above: Performed By: #### B MATERIAL LOADER, CMP ####[facility] Rckbftkyhj[address] [place] [address]Dr. Marlin Gonzalez Globulin (S) [Mass/Vol] 3.4 g/dL Normal [facility] Comment on above: Performed By: #### B MATERIAL LOADER, CMP ####[facility] Eozwzgeqqj9832 [place] [address]Dr. Marlin Gonzalez Glucose [Mass/Vol] 98 mg/dL Normal 74-106 [facility] Comment on above: Performed By: #### B MATERIAL LOADER, CMP ####[facility] Kvpbdqxvow[address] [place], [place] [address]Dr. Marlin Gonzalez Potassium [Moles/Vol] 4.3 mmol/L Normal 3.5-5.1 [facility] Comment on above: Performed By: #### B MATERIAL LOADER, CMP ####[facility] Tyfpowxbcw[address] [place], [place] [address]Dr. Marlin Gonzalez Protein [Mass/Vol] 6.4 g/dL Normal 6.4-8.2 [facility] Comment on above: Performed By: #### B MATERIAL LOADER, CMP ####[facility] Qvllwkzaqg[address] [place], [place] [address]Dr. Marlin Gonzalez Sodium [Moles/Vol] 133 mmol/L Critically low 136-145 [facility] Comment on above: Performed By: #### B MATERIAL LOADER, CMP ####[facility] Jagrcuucki33[address] [place], [place] [address]Dr. Marlin Gonzalez Urea nitrogen [Mass/Vol] 80.0 mg/dL Critically high 7.0-18.0 [facility] Comment on above: Performed By: #### B MATERIAL LOADER, CMP ####[facility] S[address]achjokxi[address] [place], [place] [address]Dr. Marlin Gonzalez Urea nitrogen/Creatinine [Mass ratio] 24.6 mg/mg Normal [facility] Comment on above: Performed By: #### B MATERIAL LOADER, CMP ####[facility] Rjxrliznws7[address] [place], [place] [address]Dr. Marlin Carlos BNPon 09-01-2021 Natriuretic peptide B (Bld) [Mass/Vol] 68931.0 pg/mL Critically high <=900.0 [facility] Comment on above: Performed By: #### C MP, BNP ####[facility] Jmhdiznynz[address] [place], [place] [address]Dr. Katherinearmando Carlos CBC AUTO DIFFon 09-01-2021 BASO # 0.0 103/ul Normal 0.0-0.1 [facility] Comment on above: Performed By: #### C BC ####[facility] Tnpehgmszm90[address] [place], [place] [address]Dr. Marlin Gonzalez Basophils/100 WBC (Bld) 0.0 % Critically low 0.2-2.0 [facility] Comment on above: Performed By: #### C BC ####[facility] Rltilwumvx[address] [place], [place] [address]Dr. Marlin Gonzalez EO # 0.0 103/ul Normal 0.0-0.7 [facility] Comment on above: Performed By: #### C BC ####[facility] Nadrkgotto[address] [place], [place] [address]Dr. Katherinearmando Gonzalez Eosinophils/100 WBC (Bld) 0.0 % Critically low 0.9-7.0 [facility] Comment on above: Performed By: #### C BC ####[facility] Upgbjgkwvq134[address] [place], [place] [address]Dr. Marlin Gonzalez Erythrocyte distribution width (RBC) [Ratio] 14.5 % Normal 11.0-15.0 [facility] Comment on above: Performed By: #### C BC ####[facility] Nqmqbvmlsc9[address] [place], [place] [address]Dr. Marlin Gonzalez Hematocrit (Bld) [Volume fraction] 31.3 % Critically low 36.0-48.0 [facility] Comment on above: Performed By: #### C BC ####[facility] Wwdyxakhnr[address] [place], [place] [address]Dr. Marlin Gonzalez Hemoglobin (Bld) [Mass/Vol] 9.9 g/dL Critically low 12.0-16.0 [facility] Comment on above: Performed By: #### C BC ####[facility] Mcikxwcscj[address] [place], [place] [address]Dr. Marlin Gonzalez IG # 0.02 10e3/ul Normal 0.00-0.03 [facility] Comment on above: Performed By: #### C BC ####[facility] Kuhkvxizdz[address] [place], [place] [address]Dr. Marlin Gonzalez IG % 0.4 % Normal 0.0-0.5 [facility] Comment on above: Performed By: #### C BC ####[facility] Hnwiembiig[address] [place], [place] [address]DrLucia Gonzalez LYMPH # 0.5 103/ul Critically low 1.2-3.8 [facility] Comment on above: Performed By: #### C BC ####[facility] Cssjpgyyqp[address] [place], [place] [address]Dr. Marlin Gonzalez Lymphocytes/100 WBC (Bld) 9.4 % Critically low 20.5-60.0 [facility] Comment on above: Performed By: #### C BC ####[facility] Wycjyfevej[address] [place], [place] [address]Dr. Marlin Gonzalez MANUAL DIFF REQ NO Normal [facility] Comment on above: Performed By: #### C BC ####[facility] Mjkdivzbiv[address] [place], [place] [address]Dr. Marlin Gonzalez MCH (RBC) [Entitic mass] 29.9 pg Normal 26.7-34.0 [facility] Comment on above: Performed By: #### C BC ####[facility] Uzwttzdhub[address] [place], [place] [address]Dr. Marlin Gonzalez MCHC (RBC) [Mass/Vol] 31.6 g/dL Normal 29.9-35.2 [facility] Comment on above: Performed By: #### C BC ####[facility] Corxhqpjvi[address] [place], [place] [address]Dr. Marlin Gonzalez MCV (RBC) [Entitic vol] 94.6 fL Normal 81.0-99.0 [facility] Comment on above: Performed By: #### C BC ####[facility] J[address]bkexnrd[address] [place], [place] [address]DrLucia Gonzalez MONO # 0.1 103/ul Critically low 0.3-0.8 [facility] Comment on above: Performed By: #### C BC ####[facility] Qhijgmfgwb[address] [place], [place] [address]Dr. Marlin Gonzalez Monocytes/100 WBC (Bld) 2.3 % Normal 1.7-12.0 [facility] Comment on above: Performed By: #### C BC ####[facility] V[address]ugzzycpx[address] [place], [place] [address]DrLucia Gonzalez NEUT # 4.2 103/ul Normal 1.4-6.5 [facility] Comment on above: Performed By: #### C BC ####[facility] Mkokzpdmmx[address] [place], [place] [address]Dr. Marlin Gonzalez Neutrophils/100 WBC (Bld) 87.9 % Critically high 43.0-75.0 [facility] Comment on above: Performed By: #### C BC ####[facility] Dpvtenrmhu[address] [place] [address]Dr. Marlin Gonzalez Platelet mean volume (Bld) [Entitic vol] 9.9 fL Normal 9.5-13.5 [facility] Comment on above: Performed By: #### C BC ####[facility] Doophkrfvi264[address] [place] [address]Dr. Marlin Gonzalez PLT 226 103/ul Normal 150-450 [facility] Comment on above: Performed By: #### C BC ####[facility] [address]qtdsczzb[address] [place], [place] [address]Dr. Marlin Gonzalez RBC 3.31 106/ul Critically low 4.20-5.40 [facility] Comment on above: Performed By: #### C BC ####[facility] Jbdcijvqag[address] [place], [place] [address]Dr. Marlin Gonzalez WBC 4.8 103/ul Normal 4.0-11.0 [facility] Comment on above: Performed By: #### C BC ####[facility] Vqaloejnfe[address] [place], [place] [address]Dr. Marlin Gonzalez POINT OF CARE GLUCOSEon 07- Glucose [Mass/Vol] 188 mg/dL Critically high 74-106 [facility] Comment on above: Performed By: #### P OCGLUC ####[facility] Blxsrhvnfm[address] [place], [place] [address]Dr. Marlin Gonzalez Glucose [Mass/Vol] 141 mg/dL Critically high 74-106 [facility] Comment on above: Performed By: #### P OCGLUC ####[facility] Fhmbxngxun[address] [place], [place] [address]Dr. Marlin Gonzalez Glucose [Mass/Vol] 359 mg/dL Critically high 74-106 [facility] Comment on above: Performed By: #### P OCGLUC ####[facility] W[address]izxampiv99[address] [place], [place] [address]Dr. Marlin Gonzalez Glucose [Mass/Vol] 202 mg/dL Critically high 74-106 [facility] Comment on above: Performed By: #### P OCGLUC ####[facility] Rffyolkzlf[address] [place] [address]Dr. Marlin Gonzalez PROF 14(COMP METB)on 022 Albumin [Mass/Vol] 3.0 g/dL Critically low 3.4-5.0 [facility] Comment on above: Performed By: #### C MP, BNP ####[facility] Avmwltwjwb[address] [place], [place] [address]Dr. Marlin Gonzalez Albumin/Globulin [Mass ratio] 0.9 {ratio} Normal [facility] Comment on above: Performed By: #### C MP, BNP ####[facility] Poxq[address]dfxhi[address] [place], [place] [address]Dr. Marlin Gonzalez ALP [Catalytic activity/Vol] 92 U/L Normal 46-116 [facility] Comment on above: Performed By: #### C MP, BNP ####[facility] C[address]pqfkcvs[address] [place], [place] [address]Dr. Marlin Gonzalez ALT [Catalytic activity/Vol] 51 U/L Normal 14-59 [facility] Comment on above: Performed By: #### C MP, BNP ####[facility] Pkaxeuscng[address] [place], [place] [address]Dr. Marlin Gonzalez Anion gap [Moles/Vol] 15.0 mmol/L Normal [facility] Comment on above: Performed By: #### C MP, BNP ####[facility] Jhrukopzio[address] [place], [place] [address]Dr. Marlin Gonzalez AST [Catalytic activity/Vol] 31 U/L Normal 15-37 [facility] Comment on above: Performed By: #### C MP, BNP ####[facility] Ugzmiodfqa[address] [place], [place] [address]Dr. Marlin Gonzalez Bilirubin [Mass/Vol] 0.3 mg/dL Normal 0.2-1.0 [facility] Comment on above: Performed By: #### C MP, BNP ####[facility] [address]ckpmgtd[address] [place], [place] [address]Dr. Marlin Gonzalez Calcium [Mass/Vol] 8.7 mg/dL Normal 8.5-10.1 [facility] Comment on above: Performed By: #### C MP, BNP ####[facility] [address] [place], [place] [address]Dr. Marlin Gonzalez Chloride [Moles/Vol] 99 mmol/L Normal 98-107 [facility] Comment on above: Performed By: #### C MP, BNP ####[facility] Fgvmonrdiu[address] [place], [place] [address]Dr. Marlin Gonzalez CO2 [Moles/Vol] 21.5 mmol/L Normal 21.0-32.0 [facility] Comment on above: Performed By: #### C MP, BNP ####[facility] Ovrwdchyvz8[address] [place], [place] [address]Dr. Marlin Gonzalez Creatinine [Mass/Vol] 3.70 mg/dL Critically high 0.55-1.02 [facility] Comment on above: Performed By: #### C MP, BNP ####[facility] Dfbzsquxur18[address] [place], [place] [address]Dr. Marlin Gonzalez EGFR-AF AFGHAN 15 mL/min/1.73m2 Critically low >=60 [facility] Comment on above: Performed By: #### C MP, BNP ####[facility] Vxonqwpsri3[address] [place], [place] [address]Dr. Marlin Gonzalez EGFR-NON AF AFGHAN 12 mL/min/1.73m2 Critically low >=60 [facility] Comment on above: Performed By: #### C MP, BNP ####[facility] Wtxpfwoedj7[address] [place], [place] [address]Dr. Marlin Gonzalez Globulin (S) [Mass/Vol] 3.3 g/dL Normal [facility] Comment on above: Performed By: #### C MP, BNP ####[facility] Rwhvsrdlld646[address] [place], [place] [address]Dr. Marlin Gonzalez Glucose [Mass/Vol] 221 mg/dL Critically high 74-106 [facility] Comment on above: Performed By: #### C MP, BNP ####[facility] [address]ypclk[address] [place] [address]Dr. Katherinearmando Gonzalez Potassium [Moles/Vol] 4.5 mmol/L Normal 3.5-5.1 [facility] Comment on above: Performed By: #### C MP, BNP ####[facility] Toppgihy[address] [place] [address]Dr. Marlin Gonzalez Protein [Mass/Vol] 6.3 g/dL Critically low 6.4-8.2 [facility] Comment on above: Performed By: #### C MP, BNP ####[facility] Revyumqtwv5216[address] [place], [place] [address]Dr. Marlin Gonzalez Sodium [Moles/Vol] 131 mmol/L Critically low 136-145 [facility] Comment on above: Performed By: #### C MP, BNP ####[facility] Lxaffeakmo177[address] [place], [place] [address]Dr. Marlin Gonzalez Urea nitrogen [Mass/Vol] 80.0 mg/dL Critically high 7.0-18.0 [facility] Comment on above: Performed By: #### C MP, BNP ####[facility] Ndhnphnpnx465[address] [place], [place] [address]Dr. Marlin Gonzalez Urea nitrogen/Creatinine [Mass ratio] 21.6 mg/mg Normal [facility] Comment on above: Performed By: #### C MP, BNP ####[facility] Halkqlpsmg4211[address] [place], [place] [address]Dr. Marlin Gonzalez XR CHEST 1 Von 09-01-2021 XR CHEST 1 V Normal [facility] BLOOD GASES BTYon 08-31-2021 02 MODE NASAL CANNULA Normal [facility] Comment on above: Performed By: #### A BG ####[facility] Shfzmrbsgt7915[address] [place], [place] [address]Dr. Marlin Gonzalez ALLENS TEST Positive Normal [facility] Comment on above: Performed By: #### A BG ####[facility] Ltogaojqqk2847[address] [place], [place] [address]Dr. Marlin Gonzalez Base excess Calc (Bld) [Moles/Vol] -4.1000 mmol/L Critically low -2.0-2.0 [facility] Comment on above: Performed By: #### A BG ####[facility] Wxsdxlbqsv400[address] [place] [address]Dr. Marlin Gonzalez BIPAP PRESSURE Normal [facility] Comment on above: Performed By: #### A BG ####[facility] Okiofmuhtx6400[address] [place], [place] [address]Dr. Marlin Gonzalez CO2 [Moles/Vol] 44.7 mmol/L Critically high 23.0-28.0 [facility] Comment on above: Performed By: #### A BG ####[facility] Uyufsnzmnw468[address] [place], [place] [address]Dr. Marlin Gonzalez CPAP Normal [facility] Comment on above: Performed By: #### A BG ####[facility] Tzmmbmzkvq338[address] [place], [place] [address]Dr. Marlin Gonzalez FIO2 Normal [facility] Comment on above: Performed By: #### A BG ####[facility] Upinlqpcou34[address] [place], [place] [address]Dr. Marlin Gonzalez HCO3 (Bld) [Moles/Vol] 21.3 mmol/L Critically low 22.0-26. 0 [facility] Comment on above: Performed By: #### A BG ####[facility] Bymolyfpqn746[address] [place], [place] [address]Dr. Marlin Gonzalez LPM 2 Normal [facility] Comment on above: Performed By: #### A BG ####[facility] Efhbzjwqpb100[address] [place], [place] [address]Dr. Marlin Gonzalez MINUTE VOLUME Normal [facility] Comment on above: Performed By: #### A BG ####[facility] Aekizcelhr489[address] [place], [place] [address]Dr. Marlin Gonzalez Oxygen (Bld) [Partial pressure] 73.5 mm[Hg] Critically low 80.0-100.0 [facility] Comment on above: Performed By: #### A BG ####[facility] Rrrmbsotww9[address] [place], [place] [address]Dr. Marlin Gonzalez Oxygen saturation in Blood 94.9 % Critically low 95.0-100.0 [facility] Comment on above: Performed By: #### A BG ####[facility] Dqrfdzyoty94[address] [place] [address]Dr. Marlin Gonzalez PCO2 36.8 mmHg Normal 35.0-45.0 [facility] Comment on above: Performed By: #### A BG ####[facility] Zuxqaqbvqw68[address] [place], [place] [address]Dr. Marlin Gonzalez PEEP [facility] Comment on above: Performed By: #### A BG ####[facility] Chlfhppyod9411[address] [place], [place] [address]Dr. Marlin Gonzalez pH (Bld) 7.370 [pH] Normal 7.350-7.450 [facility] Comment on above: Performed By: #### A BG ####[facility] Qtvgommrgn485[address] [place], [place] [address]Dr. Marlin Gonzalez PIP [facility] Comment on above: Performed By: #### A BG ####[facility] Kmabmjcuiu987[address] [place], [place] [address]Dr. Marlin Gonzalez PS [facility] Comment on above: Performed By: #### A BG ####[facility] Quulisdcch349[address] [place], [place] [address]Dr. Marlin Gonzalez PUNCTURE SITE RR [facility] Comment on above: Performed By: #### A BG ####[facility] Gewdgfeued5185[address] [place], [place] [address]Dr. Marlin Gonzalez RATE [facility] Comment on above: Performed By: #### A BG ####[facility] Kucvydlpmd12[address] [place], [place] [address]Dr. Marlin Gonzalez VENT MODE [facility] Comment on above: Performed By: #### A BG ####[facility] Wqlwuthksw359[address] [place], [place] [address]Dr. Marlin Gonzalez [place] [facility] Comment on above: Performed By: #### A BG ####[facility] Lfyofcmkcx705[address] [place], [place] [address]Dr. Marlin Gonzalez BNPon 08-31-2021 Natriuretic peptide B (Bld) [Mass/Vol] 54268.0 pg/mL Critically high <=900.0 [facility] Comment on above: Performed By: #### B MATERIAL LOADER, CMP ####[facility] Wjbvplajsx0829[address] [place], [place] [address]Dr. Marlin Gonzalez CBC AUTO DIFFon 08-31-2021 BASO # 0.0 103/ul Normal 0.0-0.1 [facility] Comment on above: Performed By: #### C BC ####[facility] Rstxlvfuqa686[address] [place], [place] [address]Dr. Katherinearmando Gonzalez Basophils/100 WBC (Bld) 0.2 % Normal 0.2-2.0 [facility] Comment on above: Performed By: #### C BC ####[facility] Pwlkslvwxg68314[address] [place], [place] [address]Dr. Marlin Gonzalez EO # 0.2 103/ul Normal 0.0-0.7 [facility] Comment on above: Performed By: #### C BC ####[facility] Xrxznbluby249[address] [place], [place] [address]Dr. Katherinearmando Gonzalez Eosinophils/100 WBC (Bld) 2.3 % Normal 0.9-7.0 [facility] Comment on above: Performed By: #### C BC ####[facility] Xtehtazmsa[address] [place], [place] [address]Dr. Marlin Gonzalez Erythrocyte distribution width (RBC) [Ratio] 15.1 % Critically high 11.0-15.0 [facility] Comment on above: Performed By: #### C BC ####[facility] Ogtqofurke22[address] [place], [place] [address]Dr. Marlin Gonzalez Hematocrit (Bld) [Volume fraction] 30.0 % Critically low 36.0-48.0 [facility] Comment on above: Performed By: #### C BC ####[facility] Mfjsxrnstu8[address] [place], [place] [address]Dr. Marlin Gonzalez Hemoglobin (Bld) [Mass/Vol] 9.7 g/dL Critically low 12.0-16.0 [facility] Comment on above: Performed By: #### C BC ####[facility] [address] [place] [id number]. Katherinearmando Carlos IG # 0.02 10e3/ul Normal 0.00-0.03 [facility] Comment on above: Performed By: #### C BC ####[facility] Lzgyyaqamy7726 [place] [phone]. Marlin Gonzalez IG % 0.2 % Normal 0.0-0.5 [facility] Comment on above: Performed By: #### C BC ####[facility] Pp[address]seyvxyf[address] [place] [address]Dr. Marlin Gonzalez LYMPH # 1.5 103/ul Normal 1.2-3.8 [facility] Comment on above: Performed By: #### C BC ####[facility] Ryiqrtcaad0459 [place] [address]DrLucia Gonzalez Lymphocytes/100 WBC (Bld) 16.6 % Critically low 20.5-60.0 [facility] Comment on above: Performed By: #### C BC ####[facility] Uswosxijnd[address] [place] [address]DrLucia Gonzalez MANUAL DIFF REQ NO Normal [facility] Comment on above: Performed By: #### C BC ####[facility] Hnbkreiivf37[address] [place] [address]Dr. Marlin Gonzalez MCH (RBC) [Entitic mass] 30.7 pg Normal 26.7-34.0 [facility] Comment on above: Performed By: #### C BC ####[facility] Pbwioowvlv[address] [place] [address]Dr. Katherinearmando Gonzalez MCHC (RBC) [Mass/Vol] 32.3 g/dL Normal 29.9-35.2 [facility] Comment on above: Performed By: #### C BC ####[facility] Fernrtdwiz35[address] [place] [address]Dr. Marlin Gonzalez MCV (RBC) [Entitic vol] 94.9 fL Normal 81.0-99.0 [facility] Comment on above: Performed By: #### C BC ####[facility] Wticyslyhd04[address] [place] [id number]. Marlin Gonzalez MONO # 0.6 103/ul Normal 0.3-0.8 [facility] Comment on above: Performed By: #### C BC ####[facility] Lifpnfbwic5790 [place] [phone]. Marlin Gonzalez Monocytes/100 WBC (Bld) 6.5 % Normal 1.7-12.0 [facility] Comment on above: Performed By: #### C BC ####[facility] Cpqhvtjrfu0809 [place] [phone]. Marlin Gonzalez NEUT # 6.9 103/ul Critically high 1.4-6.5 [facility] Comment on above: Performed By: #### C BC ####[facility] Dccfqitfvc5[address] [place] [phone]. Marlin Gonzalez Neutrophils/100 WBC (Bld) 74.2 % Normal 43.0-75.0 [facility] Comment on above: Performed By: #### C BC ####[facility] Zbztkizepy2815 [place] [phone]. Marlin Gonzalez Platelet mean volume (Bld) [Entitic vol] 11.0 fL Normal 9.5-13.5 [facility] Comment on above: Performed By: #### C BC ####[facility] [address]ixntptugt85[address] [place] [phone]. Marlin Gonzalez PLT 221 103/ul Normal 150-450 [facility] Comment on above: Result Comment: plat elet clumps seen but platelet count adequate Performed By: #### C BC ####[facility] Vfjgwhkpxb6356 [place] [phone]. Marlin Gonzalez RBC 3.16 106/ul Critically low 4.20-5.40 [facility] Comment on above: Performed By: #### C BC ####[facility] Ihzjodnppl9935 [place] [phone]. Marlin Gonzalez WBC 9.3 103/ul Normal 4.0-11.0 [facility] Comment on above: Performed By: #### C BC ####[facility] Dghnubirmd[address] [place] [address]Dr. Marlin Gonzalez ECHO LIMITED STUDYon 022 ECHO LIMITED STUDY Normal [facility] POINT OF CARE GLUCOSEon 08-11 Glucose [Mass/Vol] 335 mg/dL Critically high 74-106 [facility] Comment on above: Performed By: #### P OCGLUC ####[facility] Uxjnyxzxwa5286 [place] [address]Dr. Marlin Gonzalez Glucose [Mass/Vol] 208 mg/dL Critically high 74-106 [facility] Comment on above: Performed By: #### P OCGLUC ####[facility] Ehfyipshot9[address] [place], [place] [address]Dr. Katherinearmando Carlos Glucose [Mass/Vol] 182 mg/dL Critically high 74-106 [facility] Comment on above: Performed By: #### P OCGLUC ####[facility] Jbfspoqrrz029[address] [place], [place] [address]Dr. Marlin Gonzalez Glucose [Mass/Vol] 101 mg/dL Normal 74-106 [facility] Comment on above: Performed By: #### P OCGLUC ####[facility] Qjungxzfam8605[address] [place], [place] [address]Dr. Marlin Gonzalez PROF 14(COMP METB)on 022 Albumin [Mass/Vol] 3.1 g/dL Critically low 3.4-5.0 [facility] Comment on above: Performed By: #### B MATERIAL LOADER, CMP ####[facility] Wqzagjldhe809[address] [place], [place] [address]Dr. Marlin Gonzalez Albumin/Globulin [Mass ratio] 0.9 {ratio} Normal [facility] Comment on above: Performed By: #### B MATERIAL LOADER, CMP ####[facility] Sgfdiuglje[address] [place], [place] [address]Dr. Katherinearmando Carlos ALP [Catalytic activity/Vol] 98 U/L Normal 46-116 [facility] Comment on above: Performed By: #### B MATERIAL LOADER, CMP ####[facility] Fjpmilenql87[address] [place] [address]Dr. Marlin Gonzalez ALT [Catalytic activity/Vol] 30 U/L Normal 14-59 [facility] Comment on above: Performed By: #### B MATERIAL LOADER, CMP ####[facility] Upskyssoqe287[address] [place], [place] [address]Dr. Marlin Gonzalez Anion gap [Moles/Vol] 14.4 mmol/L Normal Th e [facility] Comment on above: Performed By: #### B MATERIAL LOADER, CMP ####[facility] Dkswpgbian7313[address] [place], [place] [address]Dr. Marlin Gonzalez AST [Catalytic activity/Vol] 29 U/L Normal 15-37 [facility] Comment on above: Performed By: #### B MATERIAL LOADER, CMP ####[facility] Ehugtopkqi7209[address] [place], [place] [address]Dr. Marlin Gonzalez Bilirubin [Mass/Vol] 0.3 mg/dL Normal 0.2-1.0 [facility] Comment on above: Performed By: #### B MATERIAL LOADER, CMP ####[facility] Yugjeqajuu0675[address] [place], [place] [address]Dr. Marlin Gonzalez Calcium [Mass/Vol] 8.9 mg/dL Normal 8.5-10.1 [facility] Comment on above: Performed By: #### B MATERIAL LOADER, CMP ####[facility] Fapzozbjvx67[address] [place], [place] [address]Dr. Marlin Gonzalez Chloride [Moles/Vol] 99 mmol/L Normal 98-107 [facility] Comment on above: Performed By: #### B MATERIAL LOADER, CMP ####[facility] Yftafuycoc6715[address] [place], [place] [address]Dr. Marlin Gonzalez CO2 [Moles/Vol] 24.7 mmol/L Normal 21.0-32.0 [facility] Comment on above: Performed By: #### B MATERIAL LOADER, CMP ####[facility] Mvyvlgcxtf16[address] [place], [place] [address]Dr. Marlin Gonzalez Creatinine [Mass/Vol] 3.79 mg/dL Critically high 0.55-1.02 [facility] Comment on above: Performed By: #### B MATERIAL LOADER, CMP ####[facility] Nvlixtwubn8725 [place] [phone]. Marlin Gonzalez EGFR-AF AFGHAN 14 mL/min/1.73m2 Critically low >=60 [facility] Comment on above: Performed By: #### B MATERIAL LOADER, CMP ####[facility] Okvmqglbbv2534 [place] [address]Dr. Marlin Gonzalez EGFR-NON AF AFGHAN 12 mL/min/1.73m2 Critically low >=60 [facility] Comment on above: Performed By: #### B MATERIAL LOADER, CMP ####[facility] Saglzgpniq1147[address] [place], [place] [address]Dr. Marlin Gonzalez Globulin (S) [Mass/Vol] 3.3 g/dL Normal [facility] Comment on above: Performed By: #### B MATERIAL LOADER, CMP ####[facility] Srzsswqaox339[address] [place], [place] [address]Dr. Marlin Gonzalez Glucose [Mass/Vol] 106 mg/dL Normal 74-106 [facility] Comment on above: Performed By: #### B MATERIAL LOADER, CMP ####[facility] Vqbuhpomfc[address] [place], [place] [address]Dr. Marlin Gonzalez Potassium [Moles/Vol] 5.1 mmol/L Normal 3.5-5.1 [facility] Comment on above: Performed By: #### B MATERIAL LOADER, CMP ####[facility] Czuounpbsp1315[address] [place], [place] [address]Dr. Marlin Gonzalez Protein [Mass/Vol] 6.4 g/dL Normal 6.4-8.2 [facility] Comment on above: Performed By: #### B MATERIAL LOADER, CMP ####[facility] Ocuvlshpzd[address] [place], [place] [address]Dr. Marlin Gonzalez Sodium [Moles/Vol] 133 mmol/L Critically low 136-145 [facility] Comment on above: Performed By: #### B MATERIAL LOADER, CMP ####[facility] Zqkmazqahu[address] [place], [place] [address]Dr. Marlin Gonzalez Urea nitrogen [Mass/Vol] 71.0 mg/dL Critically high 7.0-18.0 [facility] Comment on above: Performed By: #### B MATERIAL LOADER, CMP ####[facility] Exflmqdpun627[address] [place], [place] [address]Dr. Marlin Gonzalez Urea nitrogen/Creatinine [Mass ratio] 18.7 mg/mg Normal [facility] Comment on above: Performed By: #### B MATERIAL LOADER, CMP ####[facility] Dpwxhzbmob[address] [place], [place] [address]Dr. Marlin Carlos XR CHEST 1 Von 08-31-2021 XR CHEST 1 V Normal [facility] BNPon 08-30-2021 Natriuretic peptide B (Bld) [Mass/Vol] 51745.0 pg/mL Critically high <=900.0 [facility] Comment on above: Performed By: #### B MATERIAL LOADER, CMP ####[facility] Rlvpfuaaol[address] [place], [place] [address]Dr. Marlin Carlos CBC AUTO DIFFon 08-30-2021 BASO # 0.0 103/ul Normal 0.0-0.1 [facility] Comment on above: Performed By: #### C BC ####[facility] Mgsssryrmx6[address] [place], [place] [address]Dr. Marlin Carlos Basophils/100 WBC (Bld) 0.2 % Normal 0.2-2.0 [facility] Comment on above: Performed By: #### C BC ####[facility] Cysmkboate9629[address] [place], [place] [address]Dr. Marlin Gonzalez EO # 0.0 103/ul Normal 0.0-0.7 [facility] Comment on above: Performed By: #### C BC ####[facility] Tgdgxrhsoy8214[address] [place], [place] [address]Dr. Marlin Gonzalez Eosinophils/100 WBC (Bld) 0.0 % Critically low 0.9-7.0 [facility] Comment on above: Performed By: #### C BC ####[facility] Lyqmszbtpl[address] [place], [place] [address]Dr. Marlin Gonzalez Erythrocyte distribution width (RBC) [Ratio] 14.8 % Normal 11.0-15.0 [facility] Comment on above: Performed By: #### C BC ####[facility] Mmfbjphtaj0191 [place] [address]Dr. Marlin Gonzalez Hematocrit (Bld) [Volume fraction] 30.1 % Critically low 36.0-48.0 [facility] Comment on above: Performed By: #### C BC ####[facility] Tacyifztbh[address] [place], [place] [address]Dr. Marlin Gonzalez Hemoglobin (Bld) [Mass/Vol] 9.7 g/dL Critically low 12.0-16.0 [facility] Comment on above: Performed By: #### C BC ####[facility] Hntyzqlqfz[address] [place], [place] [address]Dr. Marlin Gonzalez IG # 0.03 10e3/ul Normal 0.00-0.03 [facility] Comment on above: Performed By: #### C BC ####[facility] Dhcznctgjq3368[address] [place], [place] [address]Dr. Marlin Gonzalez IG % 0.5 % Normal 0.0-0.5 [facility] Comment on above: Performed By: #### C BC ####[facility] Hdirbbyylw[address] [place], [place] [address]Dr. Marlin Gonzalez LYMPH # 0.7 103/ul Critically low 1.2-3.8 [facility] Comment on above: Performed By: #### C BC ####[facility] Zqbsvkosrr869[address] [place], [place] [address]Dr. Marlin Gonzalez Lymphocytes/100 WBC (Bld) 11.9 % Critically low 20.5-60.0 [facility] Comment on above: Performed By: #### C BC ####[facility] Vudkdoiyma[address] [place], [place] [address]Dr. Marlin Gonzalez MANUAL DIFF REQ NO Normal [facility] Comment on above: Performed By: #### C BC ####[facility] Wilbvlfzyk7[address] [place], [place] [address]Dr. Marlin Gonzalez MCH (RBC) [Entitic mass] 30.3 pg Normal 26.7-34.0 [facility] Comment on above: Performed By: #### C BC ####[facility] Lhqwtkigku6402 [place] [phone]. Marlin Carlos MCHC (RBC) [Mass/Vol] 32.2 g/dL Normal 29.9-35.2 [facility] Comment on above: Performed By: #### C BC ####[facility] Cmdyzubuic4[address] [place] [address]Dr. Marlin Gonzalez MCV (RBC) [Entitic vol] 94.1 fL Normal 81.0-99.0 [facility] Comment on above: Performed By: #### C BC ####[facility] Sfqtmzhbra34[address] [place], [place] [address]Dr. Marlin Gonzalez MONO # 0.4 103/ul Normal 0.3-0.8 [facility] Comment on above: Performed By: #### C BC ####[facility] Wycaapcera[address] [place], [place] [address]Dr. Marlin Gonzalez Monocytes/100 WBC (Bld) 6.8 % Normal 1.7-12.0 [facility] Comment on above: Performed By: #### C BC ####[facility] Isrpplitac66[address] [place], [place] [address]Dr. Marlin Gonzalez NEUT # 4.6 103/ul Normal 1.4-6.5 [facility] Comment on above: Performed By: #### C BC ####[facility] Evhpjsrtop14[address] [place], [place] [address]Dr. Marlin Gonzalez Neutrophils/100 WBC (Bld) 80.6 % Critically high 43.0-75.0 [facility] Comment on above: Performed By: #### C BC ####[facility] Tcjdcdivpf64[address] [place], [place] [address]Dr. Marlin Gonzalez Platelet mean volume (Bld) [Entitic vol] 10.0 fL Normal 9.5-13.5 [facility] Comment on above: Performed By: #### C BC ####[facility] Aucrmqnsei[address] [place], [place] [address]Dr. Marlin Gonzalez PLT 244 103/ul Normal 150-450 [facility] Comment on above: Performed By: #### C BC ####[facility] Iidwdtzgje8[address] [place] [address]Dr. Marlin Gonzalez RBC 3.20 106/ul Critically low 4.20-5.40 [facility] Comment on above: Performed By: #### C BC ####[facility] Makkdbszca4693 [place] [phone]. Marlin Gonzalez WBC 5.7 103/ul Normal 4.0-11.0 [facility] Comment on above: Performed By: #### C BC ####[facility] Kdthfoeshb5865 [place] [address]Dr. Marlin Gonzalez POINT OF CARE GLUCOSEon 08-11 Glucose [Mass/Vol] 121 mg/dL Critically high 74-106 [facility] Comment on above: Performed By: #### P OCGLUC ####[facility] Fgzmlmrtff0283 [place] [address]Dr. Marlin Gonzalez Glucose [Mass/Vol] 109 mg/dL Critically high 74-106 [facility] Comment on above: Performed By: #### P OCGLUC ####[facility] [address]xlrnrkkii[address] [place] [address]Dr. Marlin Gonzalez Glucose [Mass/Vol] 71 mg/dL Critically low 74-106 [facility] Comment on above: Performed By: #### P OCGLUC ####[facility] Papimtevfj[address] [place] [address]Dr. Marlin Gonzalez Glucose [Mass/Vol] 192 mg/dL Critically high 74-106 [facility] Comment on above: Performed By: #### P OCGLUC ####[facility] Fsdvwwuput[address] [place] [address]Dr. Marlin Gonzalez PROF 14(COMP METB)on 022 Albumin [Mass/Vol] 2.9 g/dL Critically low 3.4-5.0 [facility] Comment on above: Performed By: #### B MATERIAL LOADER, CMP ####[facility] Bnaqncsptw[address] [place] [address]Dr. Marlin Gonzalez Albumin/Globulin [Mass ratio] 0.9 {ratio} Normal [facility] Comment on above: Performed By: #### B MATERIAL LOADER, CMP ####[facility] Fztwqihdvy[address] [place] [address]Dr. Marlin Gonzalez ALP [Catalytic activity/Vol] 102 U/L Normal 46-116 [facility] Comment on above: Performed By: #### B MATERIAL LOADER, CMP ####[facility] Yrswr[address]hlz7[address] [place] [phone]. Marlin Carlos ALT [Catalytic activity/Vol] 28 U/L Normal 14-59 [facility] Comment on above: Performed By: #### B MATERIAL LOADER, CMP ####[facility] Efeylwdzvw[address] [place] [address]Dr. Katherinearmando Carlos Anion gap [Moles/Vol] 14.9 mmol/L Normal Th e [facility] Comment on above: Performed By: #### B MATERIAL LOADER, CMP ####[facility] Jnezfqiade[address] [place], [place] [address]Dr. Marlin Gonzalez AST [Catalytic activity/Vol] 16 U/L Normal 15-37 [facility] Comment on above: Performed By: #### B MATERIAL LOADER, CMP ####[facility] Sdaibifoho[address] [place] [address]Dr. Katherinearmando Carlos Bilirubin [Mass/Vol] 0.3 mg/dL Normal 0.2-1.0 [facility] Comment on above: Performed By: #### B MATERIAL LOADER, CMP ####[facility] Rvlcidpdrn06[address] [place] [address]Dr. Katherinearmando Carlos Calcium [Mass/Vol] 8.9 mg/dL Normal 8.5-10.1 [facility] Comment on above: Performed By: #### B MATERIAL LOADER, CMP ####[facility] Cnxyjdutif[address] [place] [address]Dr. Marlin Gonzalez Chloride [Moles/Vol] 98 mmol/L Normal 98-107 [facility] Comment on above: Performed By: #### B MATERIAL LOADER, CMP ####[facility] Wgypfhorya6[address] [place] [address]Dr. Marlin Gonzalez CO2 [Moles/Vol] 23.0 mmol/L Normal 21.0-32.0 [facility] Comment on above: Performed By: #### B MATERIAL LOADER, CMP ####[facility] Ngpvmzrzsp[address] [place], [place] [address]Dr. Marlin Gonzalez Creatinine [Mass/Vol] 3.99 mg/dL Critically high 0.55-1.02 [facility] Comment on above: Performed By: #### B MATERIAL LOADER, CMP ####[facility] Nuqoengsmd[address] [place], [place] [address]Dr. Marlin Carlos EGFR-AF AFGHAN 13 mL/min/1.73m2 Critically low >=60 [facility] Comment on above: Performed By: #### B MATERIAL LOADER, CMP ####[facility] Abflbnkkcw[address] [place], [place] [address]Dr. Katherinearmando Carlos EGFR-NON AF AFGHAN 11 mL/min/1.73m2 Critically low >=60 [facility] Comment on above: Performed By: #### B MATERIAL LOADER, CMP ####[facility] Tocazvuhxt[address] [place], [place] [address]Dr. Katherinearmando Carlos Globulin (S) [Mass/Vol] 3.4 g/dL Normal [facility] Comment on above: Performed By: #### B MATERIAL LOADER, CMP ####[facility] Jjdhkwijtc[address] [place], [place] [address]Dr. Marlin Carlos Glucose [Mass/Vol] 243 mg/dL Critically high 74-106 [facility] Comment on above: Performed By: #### B MATERIAL LOADER, CMP ####[facility] Ytefpidjqs[address] [place], [place] [address]Dr. Katherinearmando Carlos Potassium [Moles/Vol] 4.9 mmol/L Normal 3.5-5.1 [facility] Comment on above: Performed By: #### B MATERIAL LOADER, CMP ####[facility] Httlevkykc[address] [place], [place] [address]Dr. Marlin Gonzalez Protein [Mass/Vol] 6.3 g/dL Critically low 6.4-8.2 [facility] Comment on above: Performed By: #### B MATERIAL LOADER, CMP ####[facility] Ijmsdknntx[address] [place], [place] [address]Dr. Marlin Gonzalez Sodium [Moles/Vol] 131 mmol/L Critically low 136-145 Th [facility] Comment on above: Performed By: #### B MATERIAL LOADER, CMP ####[facility] Zxpfrcompz3851 [place] [address]Dr. Marlin Gonzalez Urea nitrogen [Mass/Vol] 66.0 mg/dL Critically high 7.0-18.0 [facility] Comment on above: Performed By: #### B MATERIAL LOADER, CMP ####[facility] Vtrklgdsvb80[address] [place] [address]Dr. Marlin Gonzalez Urea nitrogen/Creatinine [Mass ratio] 16.5 mg/mg Normal [facility] Comment on above: Performed By: #### B MATERIAL LOADER, CMP ####[facility] Oxbcjndtcd3780 [place] [address]Dr. Marlin Gonzalez XR CHEST 2 Von 08-30-2021 XR CHEST 2 V Normal [facility] BNPon 08-29-2021 Natriuretic peptide B (Bld) [Mass/Vol] 52134.0 pg/mL Critically high <=900.0 [facility] Comment on above: Result Comment: repe ated Performed By: #### C MP, BNP, CMADM ####[facility] Tcqlzjklnf[address] [place], [place] [address]Dr. Marlin Carlos CARDIAC JOSSIE 3-6on 2 CK [Catalytic activity/Vol] 58 U/L Normal 26-192 [facility] Comment on above: Performed By: #### C MREP ####[facility] Nsipcswhrp[address] [place] [address]Dr. Katherinearmando Carlos CK.MB [Mass/Vol] 2.02 ng/mL Normal <=3.60 [facility] Comment on above: Performed By: #### C MREP ####[facility] Lkxcabicxx[address] [place], [place] [address]Dr. Marlin Carlos HSTROP 21.3 pg/mL Normal 4.0-51.3 [facility] Comment on above: Result Comment: CUT- OFF POINTS HAVE BEEN ESTABLISHED BASED ON THE FOURTH UNIVERSAL DEFINITIONS OF MYOCARDIALINFARCTION. THE UPPER REFERENCE LIMIT (URL) OF TROPONIN, DEFINED THE 99TH PERCENTILE OFcTnI DISTRIBUTION IN A REFERENCE POPULATION, HAS BEEN CONFIRMED THE DECISION THRESHOLDFOR MS DIAGNOSIS. Performed By: #### C MREP ####[facility] Csbzipswsy[address] [place] [phone]. Marlin Gonzalez CK [Catalytic activity/Vol] 71 U/L Normal 26-192 [facility] Comment on above: Performed By: #### C MREP ####[facility] Pncwwvpfcd0758 [place] [address]Dr. Marlin Gonzalez CK.MB [Mass/Vol] 2.07 ng/mL Normal <=3.60 [facility] Comment on above: Performed By: #### C MREP ####[facility] Bprluyncqg1638 [place] [address]Dr. Marlin Gonzalez HSTROP 23.6 pg/mL Normal 4.0-51.3 [facility] Comment on above: Result Comment: CUT- OFF POINTS HAVE BEEN ESTABLISHED BASED ON THE FOURTH UNIVERSAL DEFINITIONS OF MYOCARDIALINFARCTION. THE UPPER REFERENCE LIMIT (URL) OF TROPONIN, DEFINED THE 99TH PERCENTILE OFcTnI DISTRIBUTION IN A REFERENCE POPULATION, HAS BEEN CONFIRMED THE DECISION THRESHOLDFOR MS DIAGNOSIS. Performed By: #### C MREP ####[facility] [address]cdmxntlj[address] [place] [address]Dr. Marlin Gonzalez CARDIAC JOSSIE ADMITon 022 CK [Catalytic activity/Vol] 63 U/L Normal 26-192 [facility] Comment on above: Performed By: #### C MP, BNP, CMADM ####[facility] Sohtmadseq5407 [place] [phone]. Marlin Gonzalez CK.MB [Mass/Vol] 2.23 ng/mL Normal <=3.60 [facility] Comment on above: Performed By: #### C MP, BNP, CMADM ####[facility] Syycyvihph[address] [place] [address]Dr. Marlin Gonzalez HSTROP 28.3 pg/mL Normal 4.0-51.3 [facility] Comment on above: Result Comment: CUT- OFF POINTS HAVE BEEN ESTABLISHED BASED ON THE FOURTH UNIVERSAL DEFINITIONS OF MYOCARDIALINFARCTION. THE UPPER REFERENCE LIMIT (URL) OF TROPONIN, DEFINED THE 99TH PERCENTILE OFcTnI DISTRIBUTION IN A REFERENCE POPULATION, HAS BEEN CONFIRMED THE DECISION THRESHOLDFOR MS DIAGNOSIS. Performed By: #### C MP, BNP, CMADM ####[facility] Kjtxmquolv[address] [place] [address]Dr. Marlin Gonzalez GHASSAN 175 ng/mL Critically high 9-82 [facility] Comment on above: Performed By: #### C MP, BNP, CMADM ####[facility] Fjwhpviutw9985 [place] [address]Dr. Katherinearmando Gonzalez CBC AUTO DIFFon 08-29-2021 BASO # 0.0 103/ul Normal 0.0-0.1 [facility] Comment on above: Performed By: #### C BC ####[facility] Eyfaylcfve[address] [place], [place] [address]Dr. Marlin Gonzalez Basophils/100 WBC (Bld) 0.4 % Normal 0.2-2.0 [facility] Comment on above: Performed By: #### C BC ####[facility] Rlkpsbdkps[address] [place], [place] [address]Dr. Marlin Gonzalez EO # 0.2 103/ul Normal 0.0-0.7 [facility] Comment on above: Performed By: #### C BC ####[facility] Zoduruzioa[address] [place], [place] [address]Dr. Marlin Gonzalez Eosinophils/100 WBC (Bld) 2.8 % Normal 0.9-7.0 [facility] Comment on above: Performed By: #### C BC ####[facility] Azudmugqmg[address] [place], [place] [address]Dr. Katherinearmando Gonzalez Erythrocyte distribution width (RBC) [Ratio] 14.9 % Normal 11.0-15.0 [facility] Comment on above: Performed By: #### C BC ####[facility] Icuazriydi[address] [place], [place] [address]Dr. Katherinearmando Gonzalez Hematocrit (Bld) [Volume fraction] 31.9 % Critically low 36.0-48.0 [facility] Comment on above: Performed By: #### C BC ####[facility] Alqoyganem6[address] [place] [address]Dr. Marlin Gonzalez Hemoglobin (Bld) [Mass/Vol] 10.2 g/dL Critically low 12.0-16.0 [facility] Comment on above: Performed By: #### C BC ####[facility] Xeelapczkg8[address] [place] [address]Dr. Marlin Gonzalez IG # 0.04 10e3/ul Critically high 0.00-0.03 [facility] Comment on above: Performed By: #### C BC ####[facility] Phpfjkrkce6[address] [place], [place] [address]Dr. Marlin Gonzalez IG % 0.5 % Normal 0.0-0.5 [facility] Comment on above: Performed By: #### C BC ####[facility] Opukgptiou[address] [place], [place] [address]Dr. Marlin Gonzalez LYMPH # 1.1 103/ul Critically low 1.2-3.8 [facility] Comment on above: Performed By: #### C BC ####[facility] Urxtqgpjgy[address] [place], [place] [address]Dr. Marlin Gonzalez Lymphocytes/100 WBC (Bld) 14.9 % Critically low 20.5-60.0 [facility] Comment on above: Performed By: #### C BC ####[facility] Nmbdrrfhgz[address] [place], [place] [address]Dr. Marlin Gonzalez MANUAL DIFF REQ NO Normal [facility] Comment on above: Performed By: #### C BC ####[facility] Qolixtcsae[address] [place], [place] [address]Dr. Marlin Gonzalez MCH (RBC) [Entitic mass] 30.0 pg Normal 26.7-34.0 [facility] Comment on above: Performed By: #### C BC ####[facility] Swqrmlxphu[address] [place], [place] [address]Dr. Marlin Gonzalez MCHC (RBC) [Mass/Vol] 32.0 g/dL Normal 29.9-35.2 [facility] Comment on above: Performed By: #### C BC ####[facility] Npugxqklkh7[address] [place] [phone]. Marlin Gonzalez MCV (RBC) [Entitic vol] 93.8 fL Normal 81.0-99.0 [facility] Comment on above: Performed By: #### C BC ####[facility] Mufbjnybkx4199 [place] [phone]. Marlin Gonzalez MONO # 0.7 103/ul Normal 0.3-0.8 [facility] Comment on above: Performed By: #### C BC ####[facility] Bcmjdvijgg58[address] [place] [address]Dr. Marlin Gonzalez Monocytes/100 WBC (Bld) 9.7 % Normal 1.7-12.0 [facility] Comment on above: Performed By: #### C BC ####[facility] Yiokidebdk[address] [place], [place] [address]Dr. Marlin Gonzalez NEUT # 5.4 103/ul Normal 1.4-6.5 [facility] Comment on above: Performed By: #### C BC ####[facility] Ktzirfbmed[address] [place], [place] [address]Dr. Marlin Gonzalez Neutrophils/100 WBC (Bld) 71.7 % Normal 43.0-75.0 [facility] Comment on above: Performed By: #### C BC ####[facility] Sopykyprer[address] [place], [place] [address]Dr. Marlin Gonzalez Platelet mean volume (Bld) [Entitic vol] 10.1 fL Normal 9.5-13.5 [facility] Comment on above: Performed By: #### C BC ####[facility] Zwigconvjk[address] [place], [place] [address]Dr. Marlin Gonzalez PLT 263 103/ul Normal 150-450 [facility] Comment on above: Performed By: #### C BC ####[facility] Qkuuwoqvxs[address] [place], [place] [address]Dr. Marlin Gonzalez RBC 3.40 106/ul Critically low 4.20-5.40 [facility] Comment on above: Performed By: #### C BC ####[facility] Kxmzwvcv[address]64[address] [place], [place] [address]Ea. Marlin Gonzalez WBC 7.5 103/ul Normal 4.0-11.0 [facility] Comment on above: Performed By: #### C BC ####[facility] Dgnbetjtaw6331 [place], [place] [address]Rq. Marlin Gonzalez CULTURE BLOODon 08-29-2021 Microscopic examination of blood, culture Culture Observations: NO GROWTH AT 5 DAYS. Normal [facility] Comment on above: Performed By: #### B LDCX2 ####[facility] Dwxkzsifxv8771 [place] [phone]. Marlin Gonzalez Performed By: #### B LDCX1 ####[facility] Xlyyjorpyq2[address] [place] [address]Dr. Marlin Gonzalez CULTURE URINEon 08-29-2021 CULTURE URINE Culture Observations : LIGHT GROWTH OF MIXED GENITAL MARIANNA. NO POTENTIAL PATHOGENS SEEN. Normal [facility] Comment on above: Performed By: #### U RCX ####[facility] Ewzjuxxydw8186 [place] [phone]. Marlin Gonzalez Covid-19 PCR ([facility])on 08-11 SARS-CoV-2 (COVID-19) RNA MADISON+probe Ql (Unsp spec) Not detected Normal NOT DETECTED [facility] Comment on above: Result Comment: [...] for this test is supported by the [place] of Health and Human Service's declaration that [...] be used). Performed By: #### C VDTB ####[facility] Nxhqhhyksf06[address] [place] [address]Dr. Marlin Gonzalez ER URINE PROFILEon 2 Bilirubin Ql (U) Negative Normal NEGATIVE [facility] Comment on above: Performed By: #### U MICRO, ERUR ####[facility] Uyhzotdwuv1877 [place] [address]Dr. Marlin Gonzalez Clarity (U) CLEAR Normal CLEAR [facility] Comment on above: Performed By: #### U MICRO, ERUR ####[facility] Eldlcvdujr8746 [place] [address]Dr. Marlin Gonzalez Color (U) LT. YELLOW Normal YELLOW [facility] Comment on above: Performed By: #### U MICRO, ERUR ####[facility] Rlphxqjssm[address] [place], [place] [address]Dr. Marlin Gonzalez ERUAHD A micrscopic examina tion will be performed if indicated. Normal [facility] Comment on above: Performed By: #### U MICRO, ERUR ####[facility] Nxquexunqo[address] [place], [place] [address]Dr. Marlin Gonzalez Glucose Ql (U) Negative Normal NEGATIVE [facility] Comment on above: Performed By: #### U MICRO, ERUR ####[facility] Wquxdtubux[address] [place], [place] [address]Dr. Marlin Gonzalez Hemoglobin Ql (U) Negative Normal NEGATIVE [facility] Comment on above: Performed By: #### U MICRO, ERUR ####[facility] T[address]yghwmep[address] [place], [place] [address]Dr. Marlin Gonzalez Ketones Ql (U) Negative Normal NEGATIVE [facility] Comment on above: Performed By: #### U MICRO, ERUR ####[facility] Lnvnhkwmzg[address] [place], [place] [address]Dr. Marlin Gonzalez LEUKOCYTES SMALL Abnormal NEGATIVE [facility] Comment on above: Performed By: #### U MICRO, ERUR ####[facility] Bfgswscsqw24[address] [place], [place] [address]Dr. Yiarmando Gonzalez Nitrite Ql (U) Negative Normal NEGATIVE [facility] Comment on above: Performed By: #### U MICRO, ERUR ####[facility] Jshchwgvva[address] [place], [place] [address]Dr. Katherinearmando Gonzalez pH (U) 6.0 [pH] Normal 5-9 [facility] Comment on above: Performed By: #### U MICRO, ERUR ####[facility] [address]erwmjkaf[address] [place], [place] [address]Dr. Marlin Gonzalez Protein (U) [Mass/Vol] 100 mg/dL Abnormal NEGAT SHEA/ TRACE [facility] Comment on above: Performed By: #### U MICRO, ERUR ####[facility] Chenbojqms646[address] [place], [place] [address]Dr. Marlin Gonzalez SPEC GRAVITY 1.020 Normal 1.005-<=1.02 5 [facility] Comment on above: Performed By: #### U MICRO, ERUR ####[facility] Amfsgirzmh337[address] [place], [place] [address]Dr. Marlin Gonzalez UR MICRO IND INDICATED Normal [facility] Comment on above: Performed By: #### U MICRO, ERUR ####[facility] Upcutfbnsm[address] [place], [place] [address]Dr. Marlin Gonzalez Urobilinogen Qn (U) 0.2 {Ryan'U}/dL Normal 0.2 - 1. 0 [facility] Comment on above: Performed By: #### U MICRO, ERUR ####[facility] Fthpiujiih[address] [place], [place] [address]Dr. Marlin Gonzalez LACTATE/LACTIC ACIDon 2021 Lactate [Moles/Vol] 1.1 mmol/L Normal 0.4-1.9 [facility] Comment on above: Performed By: #### L ACT ####[facility] Yufmakthrg[address] [place], [place] [address]Dr. Marlin Gonzalez POINT OF CARE GLUCOSEon 08-11 Glucose [Mass/Vol] 359 mg/dL Critically high 74-106 [facility] Comment on above: Performed By: #### P OCGLUC ####[facility] Uzcvxckwmm9351 [place] [address]Dr. Marlin Gonzalez PROF 14(COMP METB)on 022 Albumin [Mass/Vol] 3.2 g/dL Critically low 3.4-5.0 [facility] Comment on above: Performed By: #### C MP, BNP, CMADM ####[facility] Ifwfqnasve7639 [place] [address]Dr. Marlin Gonzalez Albumin/Globulin [Mass ratio] 0.9 {ratio} Normal [facility] Comment on above: Performed By: #### C MP, BNP, CMADM ####[facility] [address]fzsbtns[address] [place], [place] [address]Dr. Marlin Gonzalez ALP [Catalytic activity/Vol] 107 U/L Normal 46-116 [facility] Comment on above: Performed By: #### C MP, BNP, CMADM ####[facility] [address]qudsoxpoj[address] [place], [place] [address]Dr. Marlin Gonzalez ALT [Catalytic activity/Vol] 35 U/L Normal 14-59 [facility] Comment on above: Performed By: #### C MP, BNP, CMADM ####[facility] Yororhnfwr[address] [place], [place] [address]Dr. Marlin Gonzalez Anion gap [Moles/Vol] 14.7 mmol/L Normal [facility] Comment on above: Performed By: #### C MP, BNP, CMADM ####[facility] Hufqysetks[address] [place], [place] [address]Dr. Marlin Gonzalez AST [Catalytic activity/Vol] 21 U/L Normal 15-37 [facility] Comment on above: Performed By: #### C MP, BNP, CMADM ####[facility] Uhtuyqfbvc[address] [place], [place] [address]Dr. Marlin Gonzalez Bilirubin [Mass/Vol] 0.3 mg/dL Normal 0.2-1.0 [facility] Comment on above: Performed By: #### C MP, BNP, CMADM ####[facility] Nmwlygqyio[address] [place], [place] [address]Dr. Marlin Gonzalez Calcium [Mass/Vol] 9.6 mg/dL Normal 8.5-10.1 [facility] Comment on above: Performed By: #### C MP, BNP, CMADM ####[facility] Wckducbqrp5986 [place] [address]Dr. Marlin Gonzalez Chloride [Moles/Vol] 101 mmol/L Normal 98-107 [facility] Comment on above: Performed By: #### C MP, BNP, CMADM ####[facility] Luccqwfbam3982 [place] [address]Dr. Marlin Gonzalez CO2 [Moles/Vol] 24.9 mmol/L Normal 21.0-32.0 [facility] Comment on above: Performed By: #### C MP, BNP, CMADM ####[facility] [address]grhunjkr[address] [place], [place] [address]Dr. Marlin Gonzalez Creatinine [Mass/Vol] 3.73 mg/dL Critically high 0.55-1.02 [facility] Comment on above: Performed By: #### C MP, BNP, CMADM ####[facility] Oxywaxtymr[address] [place], [place] [address]Dr. Marlin Gonzalez EGFR-AF AFGHAN 14 mL/min/1.73m2 Critically low >=60 [facility] Comment on above: Performed By: #### C MP, BNP, CMADM ####[facility] Hrnigxukfx[address] [place], [place] [address]Dr. Marlin Gonzalez EGFR-NON AF AFGHAN 12 mL/min/1.73m2 Critically low >=60 [facility] Comment on above: Performed By: #### C MP, BNP, CMADM ####[facility] [address]kfmjuypqq[address] [place] [address]Dr. Marlin Gonzalez Globulin (S) [Mass/Vol] 3.5 g/dL Normal [facility] Comment on above: Performed By: #### C MP, BNP, CMADM ####[facility] Iokyidefgl4314 [place] [address]Dr. Marlin Gonzalez Glucose [Mass/Vol] 190 mg/dL Critically high 74-106 [facility] Comment on above: Performed By: #### C MP, BNP, CMADM ####[facility] Yykjypmsrx5[address] [place] [address]Dr. Katherinearmando Gonzalez Potassium [Moles/Vol] 4.6 mmol/L Normal 3.5-5.1 [facility] Comment on above: Performed By: #### C MP, BNP, CMADM ####[facility] Kaqfskywjd[address] [place] [address]Dr. Marlin Gonzalez Protein [Mass/Vol] 6.7 g/dL Normal 6.4-8.2 [facility] Comment on above: Performed By: #### C MP, BNP, CMADM ####[facility] Vqbwwzcmgu7982 [place] [address]Dr. Marlin Gonzalez Sodium [Moles/Vol] 136 mmol/L Normal 136-145 [facility] Comment on above: Performed By: #### C MP, BNP, CMADM ####[facility] Traswrenjh[address] [place], [place] [address]Dr. Marlin Gonzalez Urea nitrogen [Mass/Vol] 59.0 mg/dL Critically high 7.0-18.0 [facility] Comment on above: Performed By: #### C MP, BNP, CMADM ####[facility] [address] [place], [place] [address]Dr. Marlin Gonzalez Urea nitrogen/Creatinine [Mass ratio] 15.8 mg/mg Normal [facility] Comment on above: Performed By: #### C MP, BNP, CMADM ####[facility] [address]vccgscanz[address] [place], [place] [address]Dr. Marlin Gonzalez PROTIMEon 08-29-2021 INR Coag (PPP) [Relative time] 1.14 {INR} Normal [facility] Comment on above: Performed By: #### P TT, PT ####[facility] [address]myxxncndr[address] [place], [place] [address]Dr. Marlin Gonzalez INR GUIDELINES SEE BELOW Normal [facility] Comment on above: Result Comment: WALI RED INR: 2.0 - 3.0 CONDITIONS NOT LISTED BELOW 2.5 - 3.5 FOR PROSTHETIC HEART VALVE REPLACEMENT 2.5 - 3.5 RECURRENT THROMBOSIS Performed By: #### P TT, PT ####[facility] [address] [place] [address]Dr. Marlin Gonzalez PT Coag (PPP) [Time] 12.2 s Critically high 9.0-11.6 [facility] Comment on above: Performed By: #### P TT, PT ####[facility] Seyqflxg[address] [place], [place] [address]Dr. Marlin Gonzalez PTTon 08-29-2021 aPTT Coag (Bld) [Time] 31.3 s Normal 22.3-36.2 Th [facility] Comment on above: Performed By: #### P TT, PT ####[facility] Fxqlc[address] [place], [place] [address]Dr. Marlin Gonzalez URINE MICROSCOPIC ONLYon BACTERIA TRACE Abnormal NONE SEEN [facility] Comment on above: Performed By: #### U MICRO, ERUR ####[facility] [address] [place], [place] [address]Dr. Marlin Gonzalez Bacteria identified Cx Nom (U) INDICATED Normal [facility] Comment on above: Performed By: #### U MICRO, ERUR ####[facility] Q[address]qbe[address] [place], [place] [address]Dr. Marlin Gonzalez CAST NONE SEEN Normal NONE SEEN [facility] Comment on above: Performed By: #### U MICRO, ERUR ####[facility] Blesbplggz[address] [place], [place] [address]Dr. Marlin Gonzalez Crystals LM Nom (Urine sed) NONE SEEN Normal NONE SEEN [facility] Comment on above: Performed By: #### U MICRO, ERUR ####[facility] T[address] [place], [place] [address]Dr. Marlin Gonzalez Epithelial cells LM Ql (Urine sed) FEW Abnormal NONE SEEN /RARE [facility] Comment on above: Performed By: #### U MICRO, ERUR ####[facility] Ubafcviqsg[address] [place], [place] [address]Dr. Marlin Gonzalez MUCOUS NONE SEEN Normal NONE SEEN [facility] Comment on above: Performed By: #### U MICRO, ERUR ####[facility] [address] [place], [place] [address]Ye. Marlin Gonzalez RBC NONE SEEN Abnormal 0-2 [facility] Comment on above: Performed By: #### U MICRO, ERUR ####[facility] [address] [place], [place] [address]Si. Marlin Gonzalez WBC 10-20 Abnormal NONE SEEN [facility] Comment on above: Performed By: #### U MICRO, ERUR ####[facility] [address] [place], [place] [address]Sn. Marlin Gonzalez XR CHEST 1 Von 08-29-2021 XR CHEST 1 V Normal [facility] Q - CULTURE,URINE,ROUTINEon 07-23-2021 CULTURE, URINE, ROUTINE SEE NOTE Abnormal N orthern [place] [employer] Comment on above: Order Comment: [facility] performed at: Q, [employer] [facility], [address] [place] [address], [address] [place] [address], [id number], Branch Sales Manager: Lane Rae MD [facility] Collection Date/Time: [id number] [facility] Results Received Date/Time: [id number] [facility] Reported Date/Time: [id number] Result Comment: CULT URE, URINE, ROUTINE Micro Number: [id number] Test Status: Final Specimen Source: Not given [...] 6 304R #### [facility] Default [address] [place] [address] PTH INTACTon 07-12-2021 PTH, Intact 50 pg/mL Normal 15-65 [facility] Comment on above: Performed By: #### P THINT ####[facility] Hkxwlkcrcp[address] [place], [place] [address]Dr. Marlin Gonzalez UA RANDOMon 07-12-2021 Bilirubin Ql (U) Negative Normal NEGATIVE [facility] Comment on above: Performed By: #### U A ####[facility] Czkbogynxa[address] [place], [place] [address]Dr. Marlin Gonzalez Clarity (U) CLEAR Normal CLEAR [facility] Comment on above: Performed By: #### U A ####[facility] Nlpamtrnwb[address] [place], [place] [address]Dr. Yilan Gonzalez Color (U) LT. YELLOW Normal YELLOW [facility] Comment on above: Performed By: #### U A ####[facility] [address]yrkl[address]zhef[address] [place], [place] [address]Dr. Yilan Gonzalez Glucose Ql (U) Negative Normal NEGATIVE [facility] Comment on above: Performed By: #### U A ####[facility] Zsmarfedfe[address] [place], [place] [address]Dr. Yilan Gonzalez Hemoglobin Ql (U) Negative Normal NEGATIVE [facility] Comment on above: Performed By: #### U A ####[facility] Bggbbtlwbd[address] [place], [place] [address]Dr. Yilan Gonzalez Ketones Ql (U) Negative Normal NEGATIVE [facility] Comment on above: Performed By: #### U A ####[facility] [address] [place] [address]Dr. Marlin Gonzalez LEUKOCYTES TRACE Abnormal NEGATIVE [facility] Comment on above: Performed By: #### U A ####[facility] Tiuyqtsz[address] [place], [place] [address]Dr. Marlin Gonzalez Nitrite Ql (U) Negative Normal NEGATIVE [facility] Comment on above: Performed By: #### U A ####[facility] Ahkukbygiy[address] [place], [place] [address]Dr. Marlin Gonzalez pH (U) 5.5 [pH] Normal 5-9 [facility] Comment on above: Performed By: #### U A ####[facility] Ojendiyuvs[address] [place], [place] [address]Dr. Marlin Gonzalez SPEC GRAVITY 1.020 Normal 1.005-<=1.02 5 [facility] Comment on above: Performed By: #### U A ####[facility] Pwmoapumhk[address] [place], [place] [address]Dr. Marlin Gonzalez UA PROTEIN 100 mg/dl Abnormal NEGATIVE/ TRACE [facility] Comment on above: Performed By: #### U A ####[facility] Rumakmytcj[address] [place], [place] [address]Dr. Marlin Gonzalez Urobilinogen Qn (U) 0.2 {Ryan'U}/dL Normal 0.2 - 1. 0 [facility] Comment on above: Performed By: #### U A ####[facility] Vxrwkeenfh[address] [place], [place] [address]Dr. Marlin Gonzalez URINE T PROTEIN CREAT RATIOo n 07-12-2021 UR PROT CREAT RAT 0.20 Normal [facility] Comment on above: Performed By: #### U RTPCR ####[facility] Sujiffqmcc[address] [place], [place] [address]Dr. Marlin Gonzalez UR TOTAL PROTEIN >12.0 Normal <=12.0 [facility] Comment on above: Performed By: #### U RTPCR ####[facility] Avcqoluhga[address] [place], [place] [address]Dr. Marlin Gonzalez URINE CREAT 58.89 mg/dL Normal 20.00-300.00 [facility] Comment on above: Performed By: #### U RTPCR ####[facility] P[address]xbwwcqrc[address] [place], [place] [address]Dr. Marlin Gonzalez FERRITINon 07-11-2021 Ferritin [Mass/Vol] 2286.0 ng/mL Critically high 8.0-252.0 [facility] Comment on above: Performed By: #### F ERR, VITAD, FETIBC ####[facility] Dhcizhppio[address] [place], [place] [address]Dr. Marlin Gonzalez HEMOGRAM AND PLATELon 2021 Hematocrit (Bld) [Volume fraction] 32.8 % Critically low 36.0-48.0 [facility] Comment on above: Performed By: #### H H ####[facility] Wczyloytmq[address] [place], [place] [address]Dr. Marlin Gonzalez Hemoglobin (Bld) [Mass/Vol] 10.3 g/dL Critically low 12.0-16.0 [facility] Comment on above: Performed By: #### H H ####[facility] Ewiwlcdijx[address] [place], [place] [address]Dr. Marlin Gonzalez MCH (RBC) [Entitic mass] 30.0 pg Normal 26.7-34.0 [facility] Comment on above: Performed By: #### H H ####[facility] Yfrpdmuzli[address] [place], [place] [address]Dr. Katherinearmando Gonzalez MCHC (RBC) [Mass/Vol] 31.4 g/dL Normal 29.9-35.2 [facility] Comment on above: Performed By: #### H H ####[facility] W[address]zkwetuc[address] [place], [place] [address]Dr. Katherinearmando Gonzalez MCV (RBC) [Entitic vol] 95.6 fL Normal 81.0-99.0 [facility] Comment on above: Performed By: #### H H ####[facility] Vofxmoj[address] [place], [place] [address]Dr. Marlin Gonzalez PLT 241 103/ul Normal 150-450 [facility] Comment on above: Performed By: #### H H ####[facility] [address] [place] [address]Dr. Marlin Gonzalez RBC 3.43 106/ul Critically low 4.20-5.40 [facility] Comment on above: Performed By: #### H H ####[facility] [address] [place] [address]Dr. Marlin Gonzalez WBC 8.5 103/ul Normal 4.0-11.0 [facility] Comment on above: Performed By: #### H H ####[facility] [address] [place] [address]Dr. Marlin Gonzalez IRON AND TIBCon 07-11-2021 % SATURATION 27.1 % Normal [facility] Comment on above: Performed By: #### F ERR, VITAD, FETIBC ####[facility] Qiokvcaybo[address] [place], [place] [address]Dr. Katherinearmando Gonzalez Iron [Mass/Vol] 55.0 ug/dL Normal 50.0-170.0 [facility] Comment on above: Performed By: #### F ERR, VITAD, FETIBC ####[facility] Afmdjfghsn[address] [place], [place] [address]Dr. Marlin Gonzalez TIBC DIRECT 203.0 ug/dL Critically low 250.0-450.0 [facility] Comment on above: Performed By: #### F ERR, VITAD, FETIBC ####[facility] Wuarfnrqrv[address] [place], [place] [address]Dr. Marlin Gonzalez PROF 14(COMP METB)on 022 Albumin [Mass/Vol] 3.1 g/dL Critically low 3.4-5.0 Th e [facility] Comment on above: Performed By: #### C MP, URIC ####[facility] Jiwddifcon[address] [place], [place] [address]Dr. Katherinearmando Gonzalez Albumin/Globulin [Mass ratio] 0.8 {ratio} Normal [facility] Comment on above: Performed By: #### C MP, URIC ####[facility] T[address]leszjvq[address] [place], [place] [address]Dr. Marlin Gonzalez ALP [Catalytic activity/Vol] 127 U/L Critically high 46-116 [facility] Comment on above: Performed By: #### C MP, URIC ####[facility] [address] [place] [address]Dr. Marlin Gonzalez ALT [Catalytic activity/Vol] 23 U/L Normal 14-59 [facility] Comment on above: Performed By: #### C MP, URIC ####[facility] Taskqgzrvn[address] [place], [place] [address]Dr. Marlin Gonzalez Anion gap [Moles/Vol] 12.6 mmol/L Normal [facility] Comment on above: Performed By: #### C MP, URIC ####[facility] Owzwjykfcf[address] [place], [place] [address]Dr. Marlin Gonzalez AST [Catalytic activity/Vol] 17 U/L Normal 15-37 [facility] Comment on above: Performed By: #### C MP, URIC ####[facility] Ehtsleqnsx[address] [place], [place] [address]Dr. Marlin Gonzalez Bilirubin [Mass/Vol] 0.3 mg/dL Normal 0.2-1.0 [facility] Comment on above: Performed By: #### C MP, URIC ####[facility] Vaipjrpfmd[address] [place], [place] [address]Dr. Marlin Gonzalez Calcium [Mass/Vol] 9.6 mg/dL Normal 8.5-10.1 [facility] Comment on above: Performed By: #### C MP, URIC ####[facility] Zkafkmnugf[address] [place], [place] [address]Dr. Marlin Gonzalez Chloride [Moles/Vol] 103 mmol/L Normal 98-107 [facility] Comment on above: Performed By: #### C MP, URIC ####[facility] Bekelrxskg[address] [place], [place] [address]Dr. Marlin Gonzalez CO2 [Moles/Vol] 24.7 mmol/L Normal 21.0-32.0 [facility] Comment on above: Performed By: #### C MP, URIC ####[facility] Bpkdnbjsud[address] [place], [place] [address]Dr. Marlin Gonzalez Creatinine [Mass/Vol] 2.41 mg/dL Critically high 0.55-1.02 [facility] Comment on above: Performed By: #### C MP, URIC ####[facility] Waorqxdbft[address] [place], [place] [address]Dr. Marlin Gonzalez EGFR-AF AFGHAN 24 mL/min/1.73m2 Critically low >=60 [facility] Comment on above: Performed By: #### C MP, URIC ####[facility] Jjkludecyz[address] [place], [place] [address]Dr. Marlin Gonzalez EGFR-NON AF AFGHAN 20 mL/min/1.73m2 Critically low >=60 [facility] Comment on above: Performed By: #### C MP, URIC ####[facility] Mgpqicomeg[address] [place], [place] [address]Dr. Marlin Gonzalez Globulin (S) [Mass/Vol] 4.1 g/dL Normal [facility] Comment on above: Performed By: #### C MP, URIC ####[facility] [address]hs[address]corb[address] [place], [place] [address]Dr. Marlin Gonzalez Glucose [Mass/Vol] 143 mg/dL Critically high 74-106 [facility] Comment on above: Performed By: #### C MP, URIC ####[facility] Rvztiqeszm[address] [place], [place] [address]Dr. Marlin Gonzalez Potassium [Moles/Vol] 4.3 mmol/L Normal 3.5-5.1 [facility] Comment on above: Performed By: #### C MP, URIC ####[facility] Qdnxztpsyo[address] [place], [place] [address]Dr. Marlin Gonzalez Protein [Mass/Vol] 7.2 g/dL Normal 6.4-8.2 [facility] Comment on above: Performed By: #### C MP, URIC ####[facility] Wajjwwrxuz[address] [place], [place] [address]Dr. Marlin Gonzalez Sodium [Moles/Vol] 136 mmol/L Normal 136-145 [facility] Comment on above: Performed By: #### C MP, URIC ####[facility] [address] [place] [id number]. Marlin Gonzalez Urea nitrogen [Mass/Vol] 46.0 mg/dL Critically high 7.0-18.0 [facility] Comment on above: Performed By: #### C MP, URIC ####[facility] [address] [place] [address]Dr. Katherinearmando Gonzalez Urea nitrogen/Creatinine [Mass ratio] 19.1 mg/mg Normal [facility] Comment on above: Performed By: #### C MP, URIC ####[facility] [address] [place] [address]Dr. Marlin Gonzalez URIC ACID SERUMon 07-11-2021 Urate [Mass/Vol] 7.5 mg/dL Critically high 2.6-6.0 [facility] Comment on above: Performed By: #### C MP, URIC ####[facility] [address] [place] [address]Dr. Mariln Gonzalez VITAMIN D 25 OHon 07-11-2021 VIT D 25-OH 28.0 ng/mL Normal [facility] Comment on above: Performed By: #### F ERR, VITAD, FETIBC ####[facility] [address] [place] [address]Dr. Katherinearmando Gonzalez VIT D RANGES SEE BELOW Normal [facility] Comment on above: Result Comment: <20 ng/mL Vit D deficient 20 - <30 ng/mL Vit D insufficient 30 - 100 ng/mL Vit D sufficient >100 ng/mL Potential Toxicity Performed By: #### F ERR, VITAD, FETIBC ####[facility] [address] [place] [address]Dr. Marlin Gonzalez Coding Summaryon 2021 Coding Summary HTMLBase 64 EagfhcflQJy6pHg+PGhlYWQ+ VC5XOYMpJ43zzCAtwR7BN4uL OW7DKIUQTIIRAD9EBJ7toZF6 VKfcS3EyzcNs UbmggHVzRG03LMx2MRU6cZsv WFplkA4guTSbT2o7VtFpSW80 aZ55KIdkQIWzJjS1BzTiqnwt bWFy Y9frHvZheIYoWbt+PHRhYmxl IHdpZHRoPScxMDAlJyBzdHls DL6wNb1dFMOrHXOgnWjmfGJe OiBj b2obAAPkEIksXY4onVnyD6If xVX6QQSfn4b2Cq68kON+PHRk UBZ0kFfdIDecf598XiAfr7vv IDM3 qZUcJSloWOI6D09sh2N8SRTo RBLeCEV2iYL8fJ1glUjaszge A1RkoVIdFqE1OOK3nFPgkM0r bGln wlmqeF9rYdv+Z79KEI0JKZXO FC5HWih9N4QzNvbreUS+PC90 DSIpCG54lLBtnWZqb2fqvTh9 JzEw WGBgOCF8lKwcYDuyc3HoPEAw G86mvXRng0C8IKFykMwmiSIb ZeDjcLJ2yD1uXJamzkkhc7gr dzsn Gbvwz2facx81yT73A39mAKgc CUOkMNI3JSOhEAAvoZgwmf1n yG0cSk0+DMyee1wbf7zbcGv0 IjIw VRGujxTrnYctXOL2h0TrRk95 K5ApaYkgy4IpEqc3fz78vSJq v9K2vTK8UJffSXEllZ2oQKcm ZnQ6 HARfNoZnzN58eLIbFSbpAx6h tKwrdDfsKV2zUNInodifBQOk aY2nWRPpoHLmqKiqJP6vOBMq bjtm s453DzDqELO3ZPPqrDLrH5Kq qC5oEvThPSVzUHLpY2YkePYc JJwfS318WPxkGfR0KQNfceUx Y2Fs YYXghQafLlY2d3V5Gl3Fv7Kv irrjHMY6ZPuiDQKvAtS2DyNl OlY5R5GqGpp2BYWaeVzwXA8s J3Bh APIdzuzycxrrkPV8LQGeENKh zU21iJIkXAwkBz8lz2L6k705 ATBiVSInxZ77Ff1ugTdnKBYw dCBU wS7lrhiyx2ezkxoaJzCfWOZu ZCa8SYp5LHGonTloCvUhVYP9 IuB3FPL7gAWikI9xsQgyvpds dG9w Oyc+K83vjX7iHAG4LXT7zjxc WCEvonVaZI76ZR98I0VxKddl dGFibGU+JUOrqlLxcKziMT0o YmFj g1ozu7QoUYtzC3DxVJMwFCjj Qxf7TMSqNIS3jWY2fY6vXNVa ZRalu1Z1yBL0O2YlbdUlxb5d b2xs JZZrDIlbU26rkHVip5W3NNYy iUV7YUJcdBqvXdImeM23Otp+ YSJpiXrph8JfJeeqy3mdf2mc dGg9 SiNhBZDkckOakKgcZLX7p9Wz Mb71L66wAVufVOWjZXYuUNWj GKSogBuyyd2ylP3yIy7+PGNv bCB3 sPT8dS4xBRQwQhY5CHmdC306 ZiQxgPRbLotdz1hea1tfxKe7 JjFaSYWazsSgwMlaIOE3i5Hj Lz48 Q29kHGinDJTrTSHeVGLwMRBq oIwuwj5chO3pTb0+PG5jl7zv zy49yR63tOQ+EFIpHYI8fMkg PSdw GPLgyF3gAGzoBfH7NKUsCvXj iA83lKYyJIjmMz5orQsihXmn AS8qFXNpqlwew058GoMbj6ar IDEw wGFmUSihZVN5I75ly4G4NYOx HNBxEEK9sMQ6hT7xgSqdtapl bGVmdDsgdmVydGljYWwtYWxp Z246 IHRvcDsnPlBhdGllbnQgTmFt XDz0C5SkYom6VAGyqEmlPB6o oNMcVGaqLy1ioQgkvNlxDH6d NTBp qsfyo365SsGzg7efXYNsrDKr GWtwQZZ0Y39qz1J2BOQzIYPz XUD7wFE8hI6bnZdwrtayeYYk dDsg qsRmnBhqJKudJMekM768NABv hPbrUaQfnrGwPGVqhIO0GZ94 XC56yGVfb7H3bAX2U6QkHVMr bmct ootfvPN6DTMwCTQbwN12Ku1s mLuhCi7xUSNwGZQ8XWBeeOMo H7ZthJ5cQjIqKQSuMCWoB4Al eHQt EThiB304KSkpLtO3TNYzekBn B2VvUKGiiXncBmJ1j5A6Ff7J A4Z2XP50QH03sEIsf1G2tOQ1 J3Bh YXSpbbycxroppCN8NMSiSBPb mX73Rh3fdSbsRc5yHTAnFNV3 UDDbcZLeY8YegV0oZxUoIYXs MDAw R7UlyLEnMHppU686ZLdzBmC3 DWQmahGcA9WoGAGwbFcyLnH6 o6E8Ns5XDMe8BL36LK76eMPk c3R5 gDQ5L9CwNIXoyudbhdldwCD7 WIBiMLYfoF73Qe7apZokBg8j AHDqKEJ5QREmeUGjS4LfqE8f OiAj MWWbNVWoI3YwrVItKPdrB455 RZfzMhD1EEQnamKmX9IvVFNo cSxgQoA5w1W3Mi4GXBVgGT62 IFR5 uLL6QF41YG91U2DnLjtzeJZp bGU+PHRhYmxlIHdpZHRoPScx YAOaOxXwfJgfYO7aKo6cWMRr LWNv pZeimWMtByQtw6vcEYBqTZii CU8jyYeaR2VflWT5QBWbh2b8 Ju74D04eZ5YbnIY+PGNvbCB3 aWR0 mE5hNfTfXbO3DHwlU468JoLh dEIhRoznt2pkb0eujXm9KdW9 NLOuxdZlbTpiBTG4e2JbBl93 Y29s IHdpZHRoPSIxNSUiIHZhbGln rm8zpM8gSm1+ESDrrKI5lBU5 rB5jAzHnMuR7PEglM462TeSm cCIv Ibtls3irh5uphBt3SuYcIQPt smAynSzuKWO9d9BvFe97P8Lz uSctx1VfMtd2et73aPGjz0J8 bGU9 N7ZpOFTsbkikgYAcdBfbHQ5n SQLckjgrVALhfN3uESZzY8t0 SaFyFmY6ZOkzN3OnvwY5QQIi cHQg OWcwSMC4A97qz6F3UWQaEXUs EPX4cYP3jX7moScklamivPPa rGpbdqXgpHbkSShuTTseJ971 IHRv xGdeTIKjbT9cOEJgrGMfkGqr XZ9pPVXilmsjZvZMB86SAfvk QsJGWSLOQC50K9VvPer8PKIt dHls OR1mxWIrHDdzXu8kzPkfcHzs OU6vPPEphxnpPKSouY5kWTSe zOMxcMfsTB3kFLJdceqvk564 OiAx JFI2THEigARwE3RubS7lKvZw VZRnVVMcI5FokIZlWHvjW637 ZCfkTzZ8PYChgzKnU2FcJTOe aWdu UeY8t8N7Ft9gPT1qVS0xXNV1 HM50DV26pQDwu5R6kXV9L7Lq ZJJfxugozgnciYP1ADRoDLYy aW47 qSWgRHfnAm0wp0U5i200PEEw IZVofA15Bd3haRalXAIpjOZO iY0gjpyfd9oclxbxHoCxSUYk MDt0 WRs7JOGfjIdnUfZzMDS5LnK0 CCG3hPYsyQ6bqMycgjwwtS7x Oyc+FdVeMWJtkiH7T8JmHra5 ZCBz uVmiSY4qqYHxJDjbDx7myJry kNaqQR9vWITlfexwLZUmuB7v SZTmtNSqdTqtLV2qQAOqlzig b250 DaAcXLG9INSuyMEqQ4QwyI0g HlLrVVJvXSTlH6PerUVfSDni P767YBteJrE3HQVzbfNiO7Bi LWFs eBjjCgQ2c2S0Uj8BOC6YUXX2 V6UaVmd6NDOdsBpnTM3tgQHf NRxpPn0avIvibRfcMG3oYEJx bjtw SQAwwQ8fYKKyhPSujVkxNR6s YSFgxwlwj231LuLbVSK6HVEt oDLsD0KdaO8aOwUhPKZwXVEw O3Rl iDGeUDjmH622CRsgOoS6GLKl skRhL6WxGFGqfFbnUtX4j6K2 Vo9NfrYkeBjoonE3Z7GzDyhz dHI+ ZE18LVTqMW92rCXokQBty7rz dFp0KfWnGMDiDUR6gPgoEGep g3XdUEToE52ivABwd1D8UXKc bGxh bYTwIiZqkQQ5lY3fZEmcbwwr t9rgyhroXasar9lwpz61iX91 K71xUDitPHEpXRAtQCUeQSSc bGln em6tyB1eCo7+ZKWwbUZ7qEJ4 tD7vXcXzBpF4QKnzT165BmKf nAMmAnljg5wdw5fjiNd0HpPi JSIg esJojQbjFCN2l2SzKu53F15t IHdpZHRoPSIyMCUiIHZhbGln jy6tbR6vQy3+CX2yz6blqw56 cD48 dHI+BUSeXLT4oYbpXTksAJBp xH7qRDajWoV9UYJvViJesN69 oQQeOIftSo7hvQrtsTwzLK8m NTBp jgvtu396DvGle8wkPVUlwMOt GNrhLEL2Z67ok7N8SYHyIGEr GIX6sUP5oT8epZhdkqkcdPOv dDsg zdRkeGjpAWkyUWwoO742LBFs cCvaNtOqpWCyZ8usltQKUL4x OjwvdGQ+JIPyUGD0kOlzPHqz YWRk eL3oGFWnB2k8UeXfMmV0XBoe E1YeexC8NGBouBVhAVTxmPIQ gY5konjrv8cswmkdFwLqWXKq MDt0 AOo8YLVjlEacIjXsATO5ArW3 LFU0hEOgdH3knMjiqhhukM1i Oyc+RklOOjwvdGQ+PHRkIHN0 eWxl EYxcOFCsyN0jUNAhM8n4DrYb NjN6OPazO6SbpgM1SCXofSTv HSJeqFLWdV1esppgw4fcaapa IzAw SDKcJDb6YEi3XUKgcDdyIjKj VXG1JjK4UIK9tPLtsN1fiHof hawsvH8vYmw+TVJOOjwvdGQ+ PHRk ESQ2gVofGMxtJKKtrW7iEKQg B7n2QxYxDpJ9XSqnA7GyfrT8 MXXbsTEuNIYqhNVOdP5vzqzs b2xv mkqgKoShNBSuZWo0REj8ZRDq yMqjHyWdJTH3NsI0JVP3tMLb bD0kxJexnhndeB4pSzo+UGF5 ZXI6 WX86NM63H8EgVzvctVVnjAJ+ PHRhYmxlIHdpZHRoPScxMDAl MnYukHgjBW5jMm4iYIIdQQCe bGxh cHN (more content not included)... [facility] Consent Formson 02-21-2021 Consent Forms [id number] [id number]#1.00OTG [facility] Consent Forms [id number] 1041 [id number]#1.00OTG [facility] Consent Forms [id number] 1041 [id number]#1.00OTG [facility] Discharge Instructionson Discharge Instructions [id number]#1.00OTG [facility] MAGR Preoperative Recordon 0 02-21-2021 MAGR Preoperative Record MAGR Pre-Op Record Summary Primary Physician: Carlo Wyman DO Finalized Date/Time: 02/21/21 13:46:01 Pt. Name: CINTHYA WILSON./Sex: 1945 FEMALE Med Rec #: [id number] Physician: Carlo Wyman DO Financial #: [id number] Pt. Type: I Room/Bed: [facility] Admit/Disch: 02/19/21 06:01:00 - 02/20/21 15:31:00 Institution: [...] Signed By: Kimberly Ortiz RN 02/21/21 13:46 [facility] Outside Recordson 02-21-2021 Outside Records [id number] 1041 [id number]#1.00OTG TIFF [facility] Outside Records [id number]#1.00OTG TIFF [facility] Provider Orderson 02-21-2021 Provider Orders [id number] [id number]#1.00OTG TIFF [facility] Telemetry Stripson Telemetry Strips [id number] 1041 [id number]#1.00OTG TIFF [facility] BMP Standardon 02-20-2021 eGFR Non AA 18 mL/min/1.73m2 Invalid Interpretation Code [facility] Comment on above: Performed By: #### 1 [id number], [id number], [id number], [id number] ####[facility] (DEFAULT)[address] [place] [address] eGFR AA 22 mL/min/1.73m2 Invalid Interpretation Code [facility] Comment on above: Result Comment: Driver Material [employer] hero Kidney disease could be indicated at eGFRs of less than 60 ml/min/1.73m2. Kidney Failure is indicated at less than 15 ml/min/1.73m2 Performed By: #### 1 [id number], [id number], [id number], [id number] ####[facility] (DEFAULT)[address] [place] [address] Anion gap [Moles/Vol] 17.0 mmol/L Normal 5.0-19.0 [facility] Comment on above: Performed By: #### 1 [id number], [id number], [id number], [id number] ####[facility] (DEFAULT)[address] [place] [address] Calcium [Mass/Vol] 9.0 mg/dL Normal 8.9-10.3 [facility] Comment on above: Performed By: #### 1 [id number], [id number], [id number], [id number] ####[facility] (DEFAULT)[address] [place] [address] Chloride [Moles/Vol] 100 mmol/L Low 101-[address] [facility] Comment on above: Performed By: #### 1 [id number], [id number], [id number], [id number] ####[facility] (DEFAULT)[address] [place] [address]37 CO2 [Moles/Vol] 19 mmol/L Low 21-32 [facility] Comment on above: Performed By: #### 1 [id number], [id number], [id number], [id number] ####[facility] (DEFAULT)[address] [place] [address] Creatinine [Mass/Vol] 2.61 mg/dL High 0.60-1.30 [facility] Comment on above: Performed By: #### 1 [id number], [id number], [id number], [id number] ####[facility] (DEFAULT)[address] [place] [address] Glucose [Mass/Vol] 215.0 mg/dL High 74.0-118.0 [facility] Comment on above: Performed By: #### 1 [id number], [id number], [id number], [id number] ####[facility] (DEFAULT)[address] [place] [address] Osmolality 282 mOsm/L Invalid Interpretation Code [facility] Comment on above: Performed By: #### 1 [id number], [id number], [id number], [id number] ####[facility] (DEFAULT)[address] [place] [address] Potassium [Moles/Vol] 5.0 mmol/L Normal 3.6-5.1 [facility] Comment on above: Performed By: #### 1 [id number], [id number], [id number], [id number] ####[facility] (DEFAULT)[address] [place] [address] 36434 Sodium [Moles/Vol] 131.0 mmol/L Low 136.0-144.0 [facility] Comment on above: Performed By: #### 1 [id number], [id number], [id number], [id number] ####[facility] (DEFAULT)[address] [place] [address] Urea nitrogen [Mass/Vol] 50 mg/dL High 8-26 [facility] Comment on above: Performed By: #### 1 [id number], [id number], [id number], [id number] ####[facility] (DEFAULT)[address] [place] [address] 10741 Urea nitrogen/Creatinine [Mass ratio] 19.0 mg/mg High 4.6-16.2 [facility] Comment on above: Performed By: #### 1 [id number], [id number], [id number], [id number] ####[facility] (DEFAULT)[address] [place] [address]329 Consultation/Specialist Note on 02-20-2021 Consultation/Specialist Note Patient: [...] on: 02/20/2021 07:15 EST] JOHN EDEN Normal [facility] Extra Mauro 02-20-2021 Tube Collected Yes Invalid Interpretation Code [facility] Comment on above: Performed By: #### 1 [id number], [id number], [id number], [id number] #### [facility] (DEFAULT) [address] [place] [address] Performed By: #### 1 [id number], [id number], [id number], [id number] ####[facility] (DEFAULT)[address] [place] [address] Inpatient Patient Summaryon 02-20-2021 Inpatient Patient Summary [address] [address] Patient Discharge Instructions Name: CINTHYA WILSON : 1945 Patient Address: [address] [place] [address] Primary Care Provider: Name: LILY DEL REAL After you are discharged if you find you have any questions, please, call [phone] ext [phone] to speak to a nurse. Discharge Diagnosis: [...] alcohol and/or drug addiction problems; contact the [facility] 02/09 Crisis Hotline -Text 4HJTB lt [phone]. If you received any narcotics, sedation, or [...] business decisions or sign any legal documents [facility] would like to thank you for allowing us to assist you with your healthcare needs. The following includes patient education materials and information regarding your injury/illness. CINTHYA WILSON has been given the following list of follow-up instructions, prescriptions, and patient education materials: Follow-up Instructions With: Address: When: Carlo Wyman [address] [place] [address], [address] [place] [address] Business (1) 02/27/2021 1:15 PM With: Address: When: LILY DEL REAL [facility], [address] [place], [place] [address] [place], [place] [id number] Business (1) Medications During the course of [...] tab(s) Or (more content not included)... Normal [facility] POCT Glucose Levelon 01-11-2 022 Glucose [Mass/Vol] 164 mg/dL High 74-118 [facility] Comment on above: Performed By: #### 4 [id number] ####[facility] (DEFAULT)[address] [place] [address] Progress Note - Nurseon 02-10 Progress Note - Nurse Refused noon FSBS [Electronically Signed on: 02/20/2021 15:51 EST] Daniela Corbett RN [Verified on: 02/20/2021 15:51 EST] Daniela Corbett RN [facility] Anesthesia Noteon 02-19-2021 Anesthesia Note Patient: JOSE WILSON Age: 75 years Sex: FEMALE : 1945 Associated Diagnoses: None Author: Armando Sotomayor MD Postoperative Information Anesthetic utilized: General. Assessment Anesthetic outcome No anesthetic complications noted. Plan Transfer/ Discharge: Patient can be discharged from PACU when criteria met. Condition good. [Electronically Signed on: 02/19/2021 09:50 EST] Armando Sotomayor MD [Verified on: 02/19/2021 09:50 EST] Armando Sotomayor MD [facility] Anesthesia Note Patient: JOSE WILSON Age: 75 years Sex: FEMALE : [...] risk of pressure sore / SNOMED CT 581215145 / Confirmed Stage 4 chronic kidney disease / SNOMED CT 0063450717 / Confirmed COPD (chronic obstructive pulmonary disease) / SNOMED CT 51737695 / Confirmed CHF (congestive heart failure) / SNOMED CT 29509954 / Confirmed CAD (coronary artery disease) / SNOMED CT 28096008 / Confirmed Diabetes / SNOMED CT 802109071 / Confirmed GERD (gastroesophageal reflux disease) / SNOMED CT 626383454 / Confirmed Hypertension / SNOMED CT 7052861082 / Confirmed DJD (degenerative joint disease) / SNOMED CT 6717986990 / Confirmed Sleep apnea / SNOMED CT 509232412 / Confirmed Histories Family History: No family history items have been selected or recorded. Procedure history: Lumbar discectomy (645284020). Fusion (258668415). Comments: 01/25/2021 14:33 Kimberly Andino RN Neck CTR - carpal tunnel release (6676484237). Comments: 01/25/2021 14:34 Kimberly Andino RN Bilateral section (08094535). Appendectomy (775922859). Abdominal hysterectomy (071126265). Tonsillectomy (238955828). Colonoscopy (186121972). EGD (esophagogastroduodenosc opy) gastric outlet reduction (7137389428). Bilateral cataracts (986032638). Social History Electronic Cigarette/Vaping Assessment Electronic Cigarette [...] Oriented. Review / Management Laboratory Results Plan [employer] [employer]#(ASA) physical status classification: Class [...] 08:21 EST] (more content not included)... Normal [facility] Standardon 02-19-2021 eGFR Non AA 14 mL/min/1.73m2 Invalid Interpretation Code [facility] Comment on above: Performed By: #### 1 [id number] #### [facility] (DEFAULT) [address] [place] [address] eGFR AA 16 mL/min/1.73m2 Invalid Interpretation Code [facility] Comment on above: Result Comment: Driver Material Handler hero Kidney disease could be indicated at eGFRs of less than 60 ml/min/1.73m2. Kidney Failure is indicated at less than 15 ml/min/1.73m2 Performed By: #### 1 [id number] #### [facility] (DEFAULT) [address] [place] [address] Anion gap [Moles/Vol] 17.0 mmol/L Normal 5.0-19.0 [facility] Comment on above: Performed By: #### 1 [id number] #### [facility] (DEFAULT) [address] [place] [address] 38662 Calcium [Mass/Vol] 9.0 mg/dL Normal 8.9-10.3 [facility] Comment on above: Performed By: #### 1 [id number] #### [facility] (DEFAULT) [address] [place] [address] 36581 Chloride [Moles/Vol] 100 mmol/L Low 101-[address] [facility] Comment on above: Performed By: #### 1 [id number] #### [facility] (DEFAULT) [address] [place] [address] 32894 CO2 [Moles/Vol] 18 mmol/L Low 21-32 [facility] Comment on above: Performed By: #### 1 [id number] #### [facility] (DEFAULT) [address] [place] [address] 18671 Creatinine [Mass/Vol] 3.32 mg/dL High 0.60-1.30 [facility] Comment on above: Performed By: #### 1 [id number] #### [facility] (DEFAULT) [address] [place] [address] 54089 Glucose [Mass/Vol] 110.0 mg/dL Normal 74.0-118.0 [facility] Comment on above: Performed By: #### 1 [id number] #### [facility] (DEFAULT) [address] [place] [address]15 Osmolality 279 mOsm/L Invalid Interpretation Code [facility] Comment on above: Performed By: #### 1 [id number] #### [facility] (DEFAULT) [address] [place] [address]651 Potassium [Moles/Vol] 4.9 mmol/L Normal 3.6-5.1 [facility] Comment on above: Result Comment: Spec imen slightly hemolyzed; results may be adversely affected Performed By: #### 1 [id number] #### [facility] (DEFAULT) [address] [place] [address] 09528 Sodium [Moles/Vol] 130.0 mmol/L Low 136.0-144.0 [facility] Comment on above: Performed By: #### 1 [id number] #### [facility] (DEFAULT) [address] [place] [address] 78527 Urea nitrogen [Mass/Vol] 61 mg/dL High 8-26 [facility] Comment on above: Performed By: #### 1 [id number] #### [facility] (DEFAULT) [address] [place] [address] Urea nitrogen/Creatinine [Mass ratio] 18.0 mg/mg High 4.6-16.2 [facility] Comment on above: Performed By: #### 1 [id number] #### [facility] (DEFAULT) [address] [place] [address]283 Coding Summaryon 02-19-2021 Coding Summary HTMLBase 64 DeovublrIPr7bJz+PGhlYWQ+ JD2GXSYdR05qjDZoxB6GJ8zP QS6VKAUGNNMKEX7CHW9uyWE0 ZDezV6BquhPb BvvluADcTB43YOg7JWV9hZxk XMkipO3jjZCwF4f6UpZsOF06 jR36USlwIXFzKnS5MuIcggvp bWFy Q0rfAdNypRTwVuw+PHRhYmxl IHdpZHRoPScxMDAlJyBzdHls MM7kRl6lQVFiTIFrqQmrsLPb OiBj r7wdIQUpEGqsCB2cnPjmX7Bi dOS8YCVyh8a4Ws48cZY+PHRk GHU6iLxrBGllw597ZmChl8pz IDM3 wFQpLWtcYTX7K82bb7E4SLMl USReJKX6kWO1mT8dnYluiadx V1QyyZTrKyS4MMA8yOOhqR5s bGln ikvzxW9oDkn+A45PUH0HYCIF ZL9BBpr7S4AeHpexqJR+PC90 RWYoJX92rRPmgRWxy5rkjQx5 JzEw FNDdCZF0oVatORnrz8TcEHAn L07zgAVze0R5SGDcsOwewNZi YqAayTY7oL2jFFxwncetx5xu dzsn Iznus7mgdt55bD74J14uQZhd NTGjDWE3JPRnKLFxgGuwal8h lD5fYp2+JTkec5bsx5echEw8 IjIw ZRBvfnZlvJaoSPF9k5VoXo42 S3KujVigs8ZiRju1mb90iTMa r8I0yAM0GTklOYPftH3yNRut ZnQ6 UFEtSaJmyM28cOMiQNntPc9n pGiqxOroTR6sSQHgtxjkSDVo aA7ySWVchJHsyBatXO3cBOGi bjtm u038AeGwQPL2SQKzjHLxJ0Ql yV2hQaXqHKGrMRBhO7TxcZTu EIrtW942TQprMkZ6UCVnzhNu Y2Fs KERtgHacGrV0m0K8Ql7Fr6Lu uikbXXI6EZwiDGXuOkHuLqDz AjB8S2OuCdb8JQUaqDxzMK2s J3Bh TBJbwubdmdydsIA7RBOpXXSp jQ35hOZtFIsvEr1ey4F6v997 YGKcMRKvaT88Gr1jhRayOIWu dCBU vP3gbesrh8kwgveeNiWsJLCw LPh1DUe2IXDmaZtyRzNpLXW4 AlA0WBQ6vFVylE3vwLiehxkb dG9w Oyc+N63pnB9kQJV8OMD3ptoo NLLyndNdOW34HX13D8RlSxhs dGFibGU+AOCbheVxiPnbYN2p YmFj s5alk2JgZUmsG1IoGCAxZSww Ime4YFCyFGH8pQI5lJ8iLIVv PXobq6F7fFO4C3QjpjYvda3d b2xs XTUqHGsdT23bjDCic1C0MPYx oIZ0OSSroOjfDwAzbL67Txe+ XETdeDglx2CvKgyue7xfc7fj dGg9 KcKyVKRannNtxKziVYJ1k6Da Sj03D38uLXrwTXDhFHKmRACs VUAqoOddbk3xfS3sIt6+PGNv bCB3 iHS3iG7aKAOkIsO0ALmeF789 QdGczCChPlsju1agb8zseAb8 KmTtQGIhpvHubBohRLF5o1Xj Lz48 R83mSZxmDCOeZIEtGUJaGBIq mWnfkj7eeN8zIz3+HM3nq3lt gt03lY21xIU+KTXlEIV1cPig PSdw YHGamK6vTCatKrM1NCUpAxSc oD90vGHaKVyuHr1rtXbyuBwg QR2jBVQedvopv197UoExm8nq IDEw eXNjTQpmYKB6M08vb6S7RLLa GNUkGLV7sTU0mI9xwCvxmiok bGVmdDsgdmVydGljYWwtYWxp Z246 IHRvcDsnPlBhdGllbnQgTmFt LIi5P2RpFtx2INFraVtyQE0j iQPvGAaqGv4luAwseHtaUP5g NTBp zujkn571VsFrb7eeZKRfkLJb TIhrUNF6F86dz6E8VGCmNEWw SJE3uCS0lC0ceRchbjzrhZWh dDsg dvNxxIdyEUbtMSyhW583DCIe nXevYcXcwvSiPCTojGP8TP38 WH51pEYye1K6gZD2N7AkKMAo bmct eucrzXZ3JQFcTACbuV46Wg1t yBvrPs4bKKQsNEG5MRGxmQBm W3KctC4fOxGwBSAcPAHsB2Ss eHQt QTkhN048UEkhInW1YHMynaCl K8IoTBTqfPyhVpP4j4G5Vx3K E8Q8HC91ZH59iVOkh8T9qQT5 J3Bh ERYxkxntqeejfQZ2IVDhRGHl cZ48Le1zbSplUe3yPQNbUUU1 DUOfpYBtO1HhnN8cZbVyORFu MDAw C0KvuXPuPPmhB194RGthVbS4 ATKeysBzO2WyTIFxyOlkOqO2 f7K8Zm4UTVz1FE33FB85eKUw c3R5 tFU8X0YgDJVvjyltbeqkiFW8 ZHIzXARzsQ13Xi1lfJnfOn6w COJyGNK6FUIslFJbG8FtmP4m OiAj ISEiSAWxM5UfeCIlQGqiJ138 DCinWkL8NGFrtuQjO6YpCTJq uKtzBtU4q3W1Ym3FUPUuWJ13 IFR5 gYR8FC02WG99N5AzGlxhoHVo bGU+PHRhYmxlIHdpZHRoPScx OPBqSyEjlLicUD7sOk5tTWLl LWNv vPsqoYLbWhMbg3vfLIAeKHmg NU5uuLzvP6YtnEN2OQXxz8t7 Qb88N46sA8BiaEI+PGNvbCB3 aWR0 nN7rEsQqLyW3ULfsH439SuMf vUTuFyyhn7eyu7qevOv6MwI7 FROabzRfjYdsRVZ5b2QcZp20 Y29s IHdpZHRoPSIxNSUiIHZhbGln dg4snJ8uZq7+OOBujWC3tWY5 xY1cAzUlReI3IExyB875OsPi cCIv Lvqlc1gqt4tkmKp8IbHpYYNu enPylHqzMMI0e6EgHl05N0Gz vOhct4XbQea5qw03cHOmy6G1 bGU9 G6VaPNKqfkxyeDKcyKaxFN7b ORNicnxnJGNbhJ7nCFKwW7k8 ZkFjKeB4CJjhB9XhgoO2MPYo cHQg OOgzAOY6C45qg6N1TVCuIXLc YSA2nBZ6aR5alIdtppwdxIHm cUdonfCibGliUQhdAEgaW762 IHRv aGoeBLRoaK9rRYCtyESozWta WN5jHHUssmyrDmOYF00CNmrp OySDHWXEUM63P0YjDgw6DHVc dHls ZL8vuTDhOXikKs9blRzrkHrp KN0iKYLnfltwQXVmhO1dSQGw mIAozHyxVY7sCPJkllrtu586 OiAx QDH0LJAjcJUrT7SpqH5fStNv FGDxRYDjG4CgiEZvGQytX796 THvqOsT8CNHmwhTqG6OwKASj aWdu CuI9u5O8Wp7hKK0zIP0fOMD5 AX38AP68wQRgz1P5qMM2A5Ye QAEdjldpnyacnAV4PWBtSFOi aW47 kGFdKCfgEc6fb3K4t947YUPa OARxyQ02De9ejOemDIIhkHAA nR5mslkgj2dpkjteGxVlIQSn MDt0 FOv0ZDZddUpoJgUvWMX9BkW3 GMW6sOAjwM6swUsrtabgoA8u Oyc+AlYfIQGwkiS0L4RxYqi3 ZCBz rYnhTT0zmMXtMMssTf0vqCgl hMkrUN5dNJOlviisHAKljM3h ZXErfMAetFmfNH8gEDFdcevv b250 SuDgXSD4QSBqbYEpV3LrgD6d XcXnNOVoYZQzV1WglPRcITld J856DPuyNkK2YZFrtcSkF7Qx LWFs uRcbDhQ6i1K6Nk0UAF6EYBP0 H9JqHdk9JOHhsImgWM7hwCJm FCrkYb2kxKwmwNcsDK3yMUUw bjtw OFXvuH9mKJDjgTEejTqwNO5e CHFtyxeuc139SkGlQVE3EBQc nVBuC7EmeY3xApPuGOBiVCKx O3Rl qBQzFKqdR625LHasPiK1EHGp oiTfI7VaWWEgzMikTaD3t2B3 Xt6TRRupwLP+YQ28uc79B1Xs Ymxl Kpg0PRTqSAK7xCD6oX0oLBFe JNcng9M3eTI8K8ObseYanh5a w8qfIORgFVcgS53tyNFln5T5 IGVt cEE5ONQyoIllVbEuiK93Knl+ ABMgaFmzp3KjNlwip3ksx0wq dDg7OkCzSIFltsAdzIxyKUT8 b3Ai Me83C72sGRoxWWPhMHYmGHGl LKRcyIzmdf2noF4nDt4+PGNv xOL2uZC2hI5yCwYiHgZ7DLty Z249 LoCtkJRbVgwrk1tsi6tnkXp4 OpQzXOBjkqIllGmyHRE1r1Ih Qn01T7FtkFwog3QpExv2jt71 dGQg f7Z3aEK5D8HlIFSnfnonaAAu bGprDJ5wKVIdymyzDXXnnY2s SNNvB1s1AvRbYrY8BNjtM1Ud bnQ6 VOAgpWTyBDRmkYPXaI5bcfzp j4genbptWxQlVMSrPVn6MXo9 ZRAazKagLnCpHSH9GzY9UHB0 aWNh wT2ruKdagjolmW8hAab+UGh5 a7wnmGHbIH7ysZI8BV69OC66 cXNbb3T4mBJ0R7HuODWzvxax cmln hCB7BXNrEDQnpS31Hv8iwTyp Bf9oLRNgAKF3PTEasIOfL8Ap kI7uNcNzZKYjQAUeW3FnxOPf YWxp A346OFwzFiU0LXNsooOnV4Tk ZGXmrLroHjW4m3L6Zx6XRX33 ZT77WT97zKJef1Z3xHW6U0Oo ZGRp fcprfdeugLM8TYJwPQAtnB58 Na1auVzzNo6aOQKkRZL7FJOx eIMxR9XxjI9fOnZvYPPrJGKx O3Rl hJEpZBqeY758DVeeGkV7RXCc pyKxV5YjVPKqhOfkHjT3g5S8 Uz5ZFu87OG65JW43sVWff8E2 bGU9 Y0OaQHJyvjxoyqjijAQ6IBOb TQZbeO72Vs8lbAiqTn4dWSBy AEB8YQFlaZLyW6WaaA6gJzOh MDAw GEMqK0SkoMMtRGfkK313WGov GcQ7NAAvxdJrF7CcVCPwjEsx YoH0g5K4Wv9HLRlthpv6J5Tz Pjwv dHI+HG53JCLcCP52mCNllEQd p2lsnTh7GcChANKqSVC6gHtl HKazu0AbSBGgJ41haRDie2E6 IGNv bGx (more content not included)... Normal [facility] MAGR Intraoperative Recordon 02-19-2021 MAGR Intraoperative Record MAGR Intra-Op Record Summary Primary Physician: Carlo Wyman DO Finalized Date/Time: 02/19/21 11:47:08 Pt. Name: CINTHYA WILSON/Sex: 1945 FEMALE Med Rec #: [id number] Physician: Carlo Wyman DO Financial #: [id number] Pt. Type: I Room/Bed: [facility] Admit/Disch: 02/19/21 06:01:00 - Institution: Case Times [...] Andrew DO Role Performed Surgeon - Primary Pile Driving Superintendent Pile Driving Superintendent Time In 02/19/21 07:41:00 02/19/21 07:41:00 02/19/21 07:41:00 Time Out 02/19/21 09:39:00 02/19/21 09:39:00 02/19/21 09:39:00 Procedure Arthroplasty Shoulder Arthroplasty Shoulder Arthroplasty Shoulder Total Reverse(Right) Total Reverse(Right) Total Reverse(Right) Last Modified By: Shante Warner 02/19/21 Shante Warner 02/19/21 Shante Warner 02/19/21 09:41:59 09:41:59 09:41:59 Entry 4 Entry 5 Entry 6 Case Attendee Gay Jarvis Leigh-Ann CST Adkins, Brittany E CSFA Role Performed Scrub Personnel Clinical Specialist Clinical Specialist Time In 02/19/21 07:41:00 02/19/21 07:41:00 02/19/21 [...] free from sig (more content not included)... [facility] MAGR Intraoperative Record MAGR Intra-Op Record Summary Primary Physician: Finalized Date/Time: 02/19/21 08:17:10 Pt. Name: CINTHYA WILSON D.O.B./Sex: 1945 FEMALE Med Rec #: [id number] Physician: Carlo Wyman DO Financial #: [id number] Pt. Type: I Room/Bed: / Admit/Disch: 02/19/21 [...] Laura RN Role Performed Anesthesia Care Provider Pile Driving Superintendent Time In 02/19/21 07:17:00 02/19/21 07:17:00 Time [...] Signed By: Sandra Guthrie RN 02/19/21 08:17 [facility] MAGR PACU Recordon MAGR PACU Record MAGR PACU Record Sum vikram Primary Physician: Carlo Wyman DO Finalized Date/Time: 02/19/21 12:44:27 Pt. Name: CINTHYA WILSON/Sex: 1945 FEMALE Med Rec #: [id number] Physician: Carlo Wyman DO Financial #: [id number] Pt. Type: I Room/Bed: 201/ Admit/Disch: 02/19/21 06:01:00 - Institution: PACU Case Times MAGR Entry 1 In PACU I 02/19/21 09:42:00 Discharge from PACU 02/19/21 10:30:00 I Last Modified By: Sandra Guthrie RN 02/19/21 12:44:24 Finalized By: Sandra Guthrie RN Document Signatures Signed By: Sandra Guthrie RN 02/19/21 12:44 [facility] MAGR Postoperative Recordon 02-19-2021 MAGR Postoperative Record MAGR Phase II Record Summary Primary Physician: Carlo Wyman DO Finalized Date/Time: 02/19/21 11:19:15 Pt. Name: CINTHYA WILSON/Sex: 1945 FEMALE Med Rec #: [id number] Physician: Carlo Wyman DO Financial #: [id number] Pt. Type: I Room/Bed: 201/1 Admit/Disch: 02/19/21 [...] Signed By: Edie Randhawa RN 02/19/21 11:19 [facility] Nutrition Noteon 02-19-2021 Nutrition Note Chart [...] for any changes; follow, assist prn. ts [facility] Operative Report - Surgeon/P ahmet 02-19-2021 [...] blood loss: 50 Complications: No complications Findings: Xddc-nc-ishp in the glenohumeral joint, superior migration of [...] 02/19/2021 09:50 EST] Carlo Wyman DO Normal [facility] POCT Glucose Levelon 022 Glucose [Mass/Vol] 154 mg/dL High 74-118 [facility] Comment on above: Performed By: #### 4 [id number] #### [facility] (DEFAULT) [address] [place], [place] [id number] Glucose [Mass/Vol] 100 mg/dL Normal [address] [place] [address] Comment on above: Performed By: #### 4 [id number] ####[facility] (DEFAULT)[address] [place] [address] Patient Handouton 02-19-[address] ROME [...] or concerns, please call the office at [phone] -Follow up as scheduled [facility] XR Shoulder 1 View Righton 0 [...] MD 02/19/21 12:41 p Technologist: Dagoberto HEARD [facility] 2019 Novel Coronavirus (CoVI D-19), [place] LCon 02-16-2021 SARS-CoV-2 (COVID-19) RNA [place]+probe Ql (Unsp spec) Not detected Invalid Interpretation Code Not Detected [facility] Comment on above: Order Comment: [id number] Result Comment: This nucleic acid amplification test was developed and its performance characteristics determined by [employer]. Nucleic acid amplification tests include RT- PCR [...] detected) result in this assay. Performed At: [facility] [id number] Darcie Scott PhD Ph:[phone] Performed By: #### 6 [id number] ####[facility] (DEFAULT)[address] [place] [address] Progress Note - Nurseon Progress Note - Nurse Spoke with pt and informed her to be at hospital at 6am and NPO after MN, she verbalizes understanding. [Electronically Signed on: 02/16/2021 10:50 EST] Liz Garsia RN [Verified on: 02/16/2021 10:50 EST] Liz Garsia RN [facility] Coding Summaryon 02-15-2021 Coding Summary [employer]Base 64 DiwpmjwpUYp3lIv+PGhlYWQ+ KX9JTQDzN55ajUChiG3JD7pW QP8ZNZRVLSSWHL4FCH1plPX2 RMxbQ2FtbvHx JhqvkNPsKN22AKt7VZJ3rQwh LGjvaR0gjISoO2u4KyWsNP05 yN56EVisQMClKjS8DwJtyxva bWFy O5piGqEdgYOrIvj+PHRhYmxl IHdpZHRoPScxMDAlJyBzdHls YP0wBq7jCAAgEEAhnZdcvBEi OiBj r6hcBQFfQMjxKP5euOfgP6Yp aKN6RIZol0a4Cp75jSE+PHRk PCK6pRkoKFwfx755NxUjg1st IDM3 iGVvVGfwRJV3S01my2K7YLSj ACOkXBH7qCW8gV6rgRtdhknh L6HsnCUsKvU8BUJ2oDXrtU1i bGln vejftZ3aVog+S92KRV0OVQAU CE5AXbu4M1ZuWlwboQE+PC90 JMApPT45cUHlrHRpx1vrvCc2 JzEw YHJuCMT6yBcuDFdvv5MiPBBv I56ifFHre8X5OGKthIfyiZWl NlHxgOL7zB3gXTuhowysz5td dzsn Dyrma8fvqd67mU21Y01vPErh IOOiFZT7WERsKUFwgEkgby2j pX6sAb2+HAmku3tal6sjnEz5 IjIw IRBtyuHhgBtuDMT3f5HcNx95 I6GpzInab0QxCgf8pi92rESb u1J7nUW2YQioGNDveX4iQKcg ZnQ6 KDLxUkNcbH98xKSeILwbYm3w aJcajGtoOF8jJDOaksulRMLm lW2sPMShhJXqzDvzFP3cOLUn bjtm g002HlFsRCZ0HEZktEZoC1Ke rJ8fXoVdAGZfZJApX3EcnGSa UOaaM544CAslPeJ1RBGhweZx Y2Fs KBDnoJsoQjN9a6T0Ij2Ji8Pl cdrvYJH1YIppHPDeQuE7QnRd VtB4P1YqQjj8QTNdpHakHI9h J3Bh XQOvzdizvzedbVS3PAGyFFEv qB04uHPpFAjlQh7eo4R2d443 FFRpFZSqrN83Ej1nbWgaDDRq dCBU pM1sewrfi5extyuzGjAiYLXg RHq7WLo4TETqhGicCeWyDRG3 BcX1XKP4gGYmlV8peJrmbqly dG9w Oyc+X16aiX8tMFZ5JJC4goij IIRdmqIyKT71YG67Y8NxBbak dGFibGU+BXTsosHdvIihPN8z YmFj l0zmc3IaSXqmG3RzBPEfARwg Fvn0NCAaHBP7wWQ9tK3pCONp MDgsy7V0gQN6P8EgunLhuj2n b2xs LMHzDJflA20eaLDwv5G6XKRv qLU5ZTLutHhvZqHfaN75Iow+ DRAeoMqya6ZmLbost0gei5yt dGg9 HqFnUOUajoMnrLcaWAB3d8Jv Du57H78yRSvoHLPwVDChSASr EFRpbXrzrv5xoM8aQj0+PGNv bCB3 zXY7zH3mOOMkJmQ3EYfwW069 TbMwlRDxBqaec7nzp5kofUb8 XkIoOQSixkWatGykQQA0f2Zf Lz48 A19zOVuwHDOpLQLcWJDcOODd oXauac0inT7jVn6+SR8pd4oz qc09dP97uEL+RXNhMOW3gJvo PSdw APIiiR6oTGnxJiG6GXWkCuNa pE62wAKxGJssNj2guBfhnKbw VQ1bZAQrjmfhl573KqQht2xk IDEw pCIcLGbsMNY2E01bf5I6HYSb IUMdRUJ7kNP4rW7nvGwalasj bGVmdDsgdmVydGljYWwtYWxp Z246 IHRvcDsnPlBhdGllbnQgTmFt GIf7G3YrIyh5VRAluHbtKL2n rQRpZJbdMe1osSnpwAzfKU1u NTBp vzppe134EnLxn4goOEKbkSTa HPfmSRW7G45vo8D7RLTpHGVn EFQ2jDS4tZ0ewGfrhvwnmKXa dDsg wyPkfSolTZasLJfgD261WIRm zAobFtWmhwIeICDnpLL4PU82 QC61qDWbi0O8iZY3A9CpNGDn bmct pydpaKF8KQCvRLVliF08Nh0z dPqtWj6fEKBlDVN7MOJhmLKh C1NbkT2yWbOhHFDkYLEsI2Wq eHQt MFswW569LQisUjZ5FDJfdqJp K8SeVTJbuXhlAfQ6j0P2Ky0W B3K9DJ57XC18hKXsg5O3lOK0 J3Bh LZYjwhspdwbzsWD8SOPbPIXm wZ14Ko7riQxuDp8aLVBlHJD4 ZHUtsLLyK2QrxH3iVhFuSEXq MDAw V3YnuISrCOmzN726KDdnWuF8 LAKdiuWoG0ZlCLNehWetSaW8 i6C3Gn5OAXt2ID34ZW39yVXk c3R5 yMB0D8DoWTWvaardwctvfFK0 UXBsIFOloZ18Cv3lvMhaNv2f TVVwZLW4KXWfdFRiW6OpaW4j OiAj HCEnMEQtQ7SowVAgEOlqP947 QUvyMuH8JOCcgsQzK2JjTSNc nZprTyH0u7Y1Bv1ABJTiVA26 IFR5 sTY1NR88ZH02H7LbOtqizUKr bGU+PHRhYmxlIHdpZHRoPScx LZCkSsBgjQuxIS6tBd6fSOWw LWNv tLixsKFuRzVnm2qfWFItHKcy CE6yqRasY1RydAK0AXSid7w6 Zk20J12hO1PcxLN+PGNvbCB3 aWR0 yG4eRmHeRnH3TAfxG074CrLc eNCgVtebt6ulw1yezKq6GyZ0 JROdwuRjlKswTGQ4a8ZxFn79 Y29s IHdpZHRoPSIxNSUiIHZhbGln ql5wcY5iMc0+PQTeaFY5pDQ7 aX9hVyIdVcC8CZaoN858MiHy cCIv Ioush1dur1ltmBq7UjGsOVMb ioFsoChnKMM0s6ZdDp83S9He jAsge0BgGau0fv30sTOrq3A0 bGU9 P2JjYGXqvqrmmMZcgSwrPZ9h YCYlrtxeEDHbhY3mORJlB8b7 VbNeJmH8FDubW2OqhmN5DTIh cHQg TObbNMS1C94kd9J0WLFqOBGd JFK9rWZ8iS3qfOkvfuztfYHu vJtunpZrcNunFQsgFYqjC702 IHRv gHybZWKrgY8aQLXfsLByvEsk KH3hFWKufnuhOxCOP39HYuwr EvIBAMSSAM23T5SgQmh3PSBu dHls NV9ppZIwABltPu3hqRjcyIcr ZF7nHOKowujiCDXptD3cMWAv zKQeoEvuCF9dEMCjstqzy999 OiAx UDW4DVGpxRRvF2RojA0sUoRx ZBChLJUjJ4ZdcUQuZLaeN265 HUthNsN2EXFlgnIrP3WdMIBq aWdu MqN9x9S1Df6bKF6qVO0rNCJ3 LM12RA57tFCxs0P2xTH5Y5We PNYiebodcedoeCV4TGNdAXGt aW47 tWCmOKccFd6rd4L6g435QNYm RYBksZ57Hw3zhTqjMTPlpUBG pP7vxbzgw9jqhakiSjKaLOZt MDt0 YFh3QZYyiIvjIdQpVJD8HhJ7 ZOU5fEYouL8ekPilimihqU9m Oyc+TcHxLJHevcX9X6ZqKkm6 ZCBz jNvlGV8egSRyHKnlYt2mtAms lYepSE3aKNGbbxrnNHCatI3d LTNznTHwoJzkDM4qJERsmmxf b250 AaZqJHI5PJRanWHcC6GxgV6c VrNfNHSiUFAjS4OmjSDiQLnw S599NShoZiV9LSGrlsKfV7Mk LWFs vZgoZzH9y9I9Mv5EON6FMUF5 F8SmYiq5DBUvqRvqDV2ukTEl FTabOr3kiKtofVhrMB6wGCPe bjtw RVJauY2zOCBmuWNvuDcyVP6p FULohslar086PwKbTWJ4PRNo jARmG7DyiF7yXgPqBDJaAJFl O3Rl aWMzQWepJ007PMgpDvV6PUXg yyTzF3EoRZEybZeiVcU2w3W6 Lp2RHXkggDC+LL60mz13R5Uh Ymxl Zoj5OXAcZKO4oFY5pV9kHMWs SHnns3G6aSV1K1SqzbMfab6a z7bzASDfOGayI85zjNLen4O6 IGVt nTL9JQFumQjwPeEbxL18Rmd+ LQDheNwml6XgVdcug6qcb0gb kRg0PbSzYZTxhhHolEpiZKU3 b3Ai Bm04B41dSElqGTNlMATtSUEh SHGaaQzscv4ydL1gIr5+PGNv nLV5sHF3zQ2pZkClIiJ7LMwi Z249 AzMbeQKgLqywx1qzx8bofMi0 JiSvIDTyhmTicVlyVWR9f5Kz Ay58T3YciYogq2SwCqo9nb97 dGQg f8L8zVY6K1FhTUPqgqxmjOOv xGdsFK7nMVLflxiyRZFdiY6v VXDsC2f8UpUqNsO7GKttM5Nd bnQ6 ABPxxAVlEJNdcURSoC1fhzyd i9mzqjprZjQeFXCcRKb4BHe8 ZPQkmVprKgIzELX6KrD0ZES0 aWNh tU6ivTnferumaJ2yNhb+UGh5 b0ldmTQuNE9qaHK2TL75UH31 aLRed2H8iDO6W3OuNHKrbgzf cmln xLC0BLClBYZijA41Lk7mtHnk Pk5sXSEnLMO1ABZtjAAjK3Wc nE1pUmQmSBEvJBJuR8LvkUPr YWxp J107AJroLxJ4BQRjubRiQ7Xt AUIvuPaaBxK3j5C3Oi7GYI50 IB84EW65hZQak9J4eOF1G4Zd ZGRp rhllqguvtLW1CXOyRVIwrR82 Ua5ofUlhQy5bTNVqXHR1FSCy hVJyW9ExbD9mUiAcBLLuZIZk O3Rl yKBnOBrcW722GXaeUkH3IRLz rmMsI1GrVGTheBirMfK6d8I3 Lx9FAk53JX60MQ84zGKtf6C3 bGU9 U6NfKSLmwfhbvvadhWV5SVKl IOQabZ17Du6wqJmeSm2dITTs IST2NATixXGuQ7KbzT0kBbCl MDAw MNZjK2EhxAIvXKzrQ208CXsv TaI1ILEfkuMlQ0ShFXQzwCrh SiL2i0U0Tg6VUJpzzlv4F2Yg Pjwv dHI+PH33ASGkCI94bJZmaIYx i1hhfTn3ZgSsYXJxFOT6sDli FYtxt3GkEVWgG26qpWXmm8H6 IGNv bGx (more content not included)... [facility] Progress Note - Nurseon 01-11 Progress [...] on: 02/01/2021 07:58 EST] Kimberly Ortiz RN [facility] Progress Note - Nurseon 01-11 Progress Note - Nurse Dr. Desai did ch art review and no new orders received. [Electronically Signed on: 01/29/2021 15:23 EST] Lynette Valadez RN [Verified on: 01/29/2021 15:23 EST] Lynette Valadez RN [facility] C Urineon 01-27-2021 C Urine <10,000 cfu/ml [facility] Comment on above: Performed By: #### [id number] #### [facility] (DEFAULT) [address] [place] [address] C MRSA Screenon 01-26-2021 C MRSA Screen Negative [facility] Comment on above: Performed By: #### 1 [id number] ####[facility] (DEFAULT)[address] [place] [address] Provider Orderson 01-26-2021 Provider Orders [id number] TIFF [facility] .Auto Diff 1on 01-25-2021 Auto Bandera % 10 % Normal 02-21 [facility] Comment on above: Performed By: #### 1 [id number], [id number], [id number] #### [facility] (DEFAULT) [address] [place] [address] 52158 Baso Abs# 0.0 x10 Normal 0.0-0.2 [facility] Comment on above: Performed By: #### 1 [id number], [id number], 8955206 #### [facility] (DEFAULT) [address] [place] [address] 02563 Basophils/100 WBC (Bld) 0.2 % Normal 0.2-2.0 [facility] Comment on above: Performed By: #### 1 [id number], [id number], 3424839 #### [facility] (DEFAULT) [address] [place] [address] 00108 Eos Abs# 0.8 x10 High 0.0-0.4 [facility] Comment on above: Performed By: #### 1 1443480, [id number], 7427702 #### [facility] (DEFAULT) [address] [place] [address] 67732 Eosinophils/100 WBC (Bld) 8.0 % High 0.9-4.0 [facility] Comment on above: Performed By: #### 1 6117222, [id number], 2242294 #### [facility] (DEFAULT) [address] [place] [address] 43007 Lymph Abs# 2.2 x10 Normal 1.3-2.9 [facility] Comment on above: Performed By: #### 1 5815154, [id number], 6120170 #### [facility] (DEFAULT) [address] [place] [address] 44601 Lymphocytes/100 WBC (Bld) 21 % Normal 14-48 [facility] Comment on above: Performed By: #### 1 3457389, [id number], 3641580 #### [facility] (DEFAULT) [address] [place] [address] 98679 Bandera Abs# 1.0 x10 High 0.0-0.8 [facility] Comment on above: Performed By: #### 1 6508820, [id number], 0695037 #### [facility] (DEFAULT) [address] [place] [address] 04482 Neut Abs# 6.5 x10 Normal 1.5-9.2 [facility] Comment on above: Performed By: #### 1 6774786, [id number], 6367951 #### [facility] (DEFAULT) [address] [place] [address] 68418 Neutrophils/100 WBC (Bld) 61 % Normal 44-88 [facility] Comment on above: Performed By: #### 1 5616388, [id number], 0663157 #### [facility] (DEFAULT) [address] [place] [address] 90408 BMP Standardon 01-25-2021 eGFR Non AA 16 mL/min/1.73m2 Invalid Interpretation Code [facility] Comment on above: Performed By: #### 1 [id number], [id number], 9665584 #### [facility] (DEFAULT) [address] [place] [address] 49296 eGFR AA 19 mL/min/1.73m2 Invalid Interpretation Code [facility] Comment on above: Result Comment: Driver Material Handler hero Kidney disease could be indicated at eGFRs of less than 60 ml/min/1.73m2. Kidney Failure is indicated at less than 15 ml/min/1.73m2 Performed By: #### 1 1406647, [id number], 7542692 #### [facility] (DEFAULT) [address] [place] [address] 49958 Anion gap [Moles/Vol] 15.0 mmol/L Normal 5.0-19.0 [facility] Comment on above: Performed By: #### 1 3702326, [id number], 5986270 #### [facility] (DEFAULT) [address] [place] [address] 61900 Calcium [Mass/Vol] 9.0 mg/dL Normal 8.9-10.3 [facility] Comment on above: Performed By: #### 1 4785908, [id number], 8682533 #### [facility] (DEFAULT) [address] [place] [address] 00289 Chloride [Moles/Vol] 97 mmol/L Low 101-[address] [facility] Comment on above: Performed By: #### 1 6410409, [id number], 5898029 #### [facility] (DEFAULT) [address] [place] [address] 97965 CO2 [Moles/Vol] 23 mmol/L Normal 21-32 [facility] Comment on above: Performed By: #### 1 0456101, [id number], 5406278 #### [facility] (DEFAULT) [address] [place] [address] 22889 Creatinine [Mass/Vol] 2.92 mg/dL High 0.60-1.30 [facility] Comment on above: Performed By: #### 1 8472717, [id number], 5829954 #### [facility] (DEFAULT) [address] [place] [address] 13613 Glucose [Mass/Vol] 163.0 mg/dL High 74.0-118.0 [facility] Comment on above: Performed By: #### 1 9737337, [id number], 1903557 #### [facility] (DEFAULT) [address] [place] [address] 18027 Osmolality 279 mOsm/L Invalid Interpretation Code [facility] Comment on above: Performed By: #### 1 8698489, [id number], 1864002 #### [facility] (DEFAULT) [address] [place] [address] 99141 Potassium [Moles/Vol] 4.1 mmol/L Normal 3.6-5.1 [facility] Comment on above: Performed By: #### 1 2691667, [id number], 1000737 #### [facility] (DEFAULT) [address] [place] [address] 53694 Sodium [Moles/Vol] 131.0 mmol/L Low 136.0-144.0 [facility] Comment on above: Performed By: #### 1 6792783, [id number], 4832362 #### [facility] (DEFAULT) [address] [place] [address] 06108 Urea nitrogen [Mass/Vol] 48 mg/dL High 8-26 [facility] Comment on above: Performed By: #### 1 1047519, [id number], 3223706 #### [facility] (DEFAULT) [address] [place] [address] Urea nitrogen/Creatinine [Mass ratio] 16.0 mg/mg Normal 4.6-16.2 [facility] Comment on above: Performed By: #### 1 9243036, [id number], 4489989 #### [facility] (DEFAULT) [address] [place] [address] CBC w/ Auto Diffon 1 Erythrocyte distribution width (RBC) [Ratio] 14.7 % Normal 11.5-15.0 [facility] Comment on above: Performed By: #### 1 0915195, [id number], 4794917 #### [facility] (DEFAULT) [address] [place] [address] Hematocrit (Bld) [Volume fraction] 32.1 % Low 33.7-40.4 [facility] Comment on above: Performed By: #### 1 3583606, [id number], 3587175 #### [facility] (DEFAULT) [address] [place] [address] Hemoglobin (Bld) [Mass/Vol] 9.7 g/dL Low 11.3-15.9 [facility] Comment on above: Performed By: #### 1 8108204, [id number], 6536492 #### [facility] (DEFAULT) [address] [place] [address] Instr WBC 10.6 x10 Invalid Interpretation Code [facility] Comment on above: Performed By: #### 1 1947482, [id number], 7541795 #### [facility] (DEFAULT) [address] [place] [address] Man Diff? Auto Normal [facility] Comment on above: Performed By: #### 1 3031358, [id number], 4004164 #### [facility] (DEFAULT) [address] [place] [address] 19018 MCH (RBC) [Entitic mass] 30 pg Normal 24-34 [facility] Comment on above: Performed By: #### 1 0153252, [id number], 0843443 #### [facility] (DEFAULT) [address] [place] [address] 60114 MCHC (RBC) [Mass/Vol] 30 g/dL Normal 26-37 [facility] Comment on above: Performed By: #### 1 2429964, [id number], 9753807 #### [facility] (DEFAULT) [address] [place] [address] 20840 MCV (RBC) [Entitic vol] 98 fL Normal 81-100 [facility] Comment on above: Performed By: #### 1 0793694, [id number], 2630403 #### [facility] (DEFAULT) [address] [place] [address] 80165 Platelet 379 x10 Normal 138-427 [facility] Comment on above: Performed By: #### 1 5664775, [id number], 5335059 #### [facility] (DEFAULT) [address] [place] [address] 77609 Platelet mean volume (Bld) [Entitic vol] 9.8 fL Normal 6.3-10.2 [facility] Comment on above: Performed By: #### 1 7039465, [id number], 9465896 #### [facility] (DEFAULT) [address] [place] [address] RBC 3.28 x10 Low 3.70-5.30 [facility] Comment on above: Performed By: #### 1 6420477, [id number], 3180699 #### [facility] (DEFAULT) [address] [place] [address] 11602 WBC 10.6 x10 High 3.5-10.5 [facility] Comment on above: Performed By: #### 1 4759592, [id number], 4833492 #### [facility] (DEFAULT) [address] [place] [address] ANES Marissa 09-18-2020 ANES POST HNO ID: [id number] Author: Robin Michael MD Service: Anesthesiology Author [...] 18, 2020 TIME: 4:22 PM PAGER/CONTACT #: [phone] Normal [facility] APTTon 09-18-2020 aPTT Coag (Bld) [Time] 24.1 s Normal 23.0-32.4 [facility] Comment on above: Result Comment: Unfr [...] laboratory APTT reagent in use throughout the [facility]. Performed By: #### P T, CMP, CBC, PTT ####[facility] [address] [place], [place] [phone] BRIEF OP NOTon 09-18-2020 BRIEF OP NOT HNO ID: [id number] Author: Kaleb Young MD Service: Urology Author Type: Resident Type: Brief Op Note Filed: 09/18/2020 3:09 PM Note Text: UROLOGY BRIEF OP NOTE Log ID: [id number] Surgery/Procedure Date: 09/18/2020 Incision/Procedure Start Time: 2:16 PM Incision Close/Procedure End Time: 2:59 PM Patient Info: 75 year old female Surgeon(s)/Proceduralist (s) and Crimper Operator(s): Surgeon(s) and Role: * Yamileth Martin MD [...] 18, 2020 TIME: 3:07 PM PAGER/CONTACT #: [phone] Normal [facility] CBCon 09-18-2020 Absolute nRBC <0.01 Normal <0.01 [facility] Comment on above: Performed By: #### P T, CMP, CBC, PTT ####[facility] [place], [place] [phone] Erythrocyte distribution width (RBC) [Ratio] 17.8 % High 11.5-15.0 [facility] Comment on above: Performed By: #### P T, CMP, CBC, PTT ####[place] [address] [address] [place] [phone] Hematocrit (Bld) [Volume fraction] 34.1 % Low 36.0-46.0 [facility] Comment on above: Performed By: #### P T, CMP, CBC, PTT ####[place] [address] [address] [place] [phone] Hemoglobin (Bld) [Mass/Vol] 10.3 g/dL Low 11.5-15.5 [facility] Comment on above: Performed By: #### P T, CMP, CBC, PTT ####[place] [address] [address] [place] [phone] MCH 28.9 pG Normal 26.0-34.0 [facility] Comment on above: Performed By: #### P T, CMP, CBC, PTT ####[place] [address] [address] [place] [phone] MCHC (RBC) [Mass/Vol] 30.2 g/dL Low 30.5-36.[address] [facility] Comment on above: Performed By: #### P T, CMP, CBC, PTT ####[place] [address] [address] [place] [phone] MCV (RBC) [Entitic vol] 95.5 fL Normal 80.0-100.0 [facility] Comment on above: Performed By: #### P T, CMP, CBC, PTT ####[place] [address] [address] [place] [phone] Platelet mean volume (Bld) [Entitic vol] 10.0 fL Normal 9.0-12.7 [facility] Comment on above: Performed By: #### P T, CMP, CBC, PTT ####[place] [address] [place], [place] [phone] Platelets (Bld) [#/Vol] 270 10*3/uL Normal 150-400 [facility] Comment on above: Performed By: #### P T, CMP, CBC, PTT ####[facility] [place], [place] [phone] RBC (Bld) [#/Vol] 3.57 10*6/uL Low 3.90-5.20 [facility] Comment on above: Performed By: #### P T, CMP, CBC, PTT ####[facility] [place], [place] [phone] WBC (Bld) [#/Vol] 11.82 10*3/uL High 3.70-11.00 [facility] Comment on above: Performed By: #### P T, CMP, CBC, PTT ####[facility] [place], [place] [phone] CYTOLOGYon 09-18-2020 CYTOLOGY Specimen originated from [facility] Specimen #: [id number] Submitting Physician: YAMILETH MARTIN M.D. (Q10) SPECIMEN [...] A: RENAL PELVIS LEFT, WASHING THIN PREP Non-Editorial Clerk B: RENAL PELVIS LEFT, BRUSHING THIN PREP Non-Editorial Clerk Date of Report: 09/19/2020 Date of Procedure: 09/18/2020 Date of Receipt: 09/18/2020 Submitted by: YAMILETH MARTIN M.D. (Q10) Location: E020 Diagnostic interpretation performed at [facility], [address] [place] [address] 19899. CLIA Number: [id number] Normal [facility] Comp Metabolic Panelon 09-18 Albumin [Mass/Vol] 3.5 g/dL Low 3.9-4.9 [facility] Comment on above: Performed By: #### P T, CMP, CBC, PTT ####[address] [phone] ALP [Catalytic activity/Vol] 107 U/L Normal 34-123 [facility] Comment on above: Performed By: #### P T, CMP, CBC, PTT ####[address] [phone] ALT [Catalytic activity/Vol] 24 U/L Normal 7-38 [facility] Comment on above: Performed By: #### P T, CMP, CBC, PTT ####[address] [phone] Anion gap [Moles/Vol] 16 mmol/L Normal 9-[address] [facility] Comment on above: Performed By: #### P T, CMP, CBC, PTT ####[address] [phone] AST [Catalytic activity/Vol] 25 U/L Normal 13-35 [facility] Comment on above: Performed By: #### P T, CMP, CBC, PTT ####[address] [phone] Bilirubin [Mass/Vol] 0.2 mg/dL Normal 0.2-1.3 [facility] Comment on above: Performed By: #### P T, CMP, CBC, PTT ####[facility], [place] [phone] Calcium [Mass/Vol] 9.0 mg/dL Normal 8.5-10.2 [facility] Comment on above: Performed By: #### P T, CMP, CBC, PTT ####[place] [address] [address] [place] [phone] Chloride [Moles/Vol] 101 mmol/L Normal 97-105 [facility] Comment on above: Performed By: #### P T, CMP, CBC, PTT ####[place] [address] [address] [place] [phone] CO2 [Moles/Vol] 22 mmol/L Normal 22-30 [facility] Comment on above: Performed By: #### P T, CMP, CBC, PTT ####[place] [address] [place] [place] [phone] Creatinine [Mass/Vol] 2.13 mg/dL High 0.58-0.[address] [facility] Comment on above: Performed By: #### P T, CMP, CBC, PTT ####[place] [address] [address], [place] [phone] eGFR- Amer. 27 Normal [facility] Comment on above: Performed By: #### P T, CMP, CBC, PTT ####[place] [address] [address], [place] [phone] eGFR-All Other Races 23 . Normal [facility] Comment on above: Result Comment: eGFR [...] By: #### P T, CMP, CBC, PTT ####[facility] [place], [place] [phone] Glucose [Mass/Vol] 80 mg/dL Normal 74-99 [facility] Comment on above: Result Comment: The [place] Diabetes [employer] (ADA) provides guidance for cutoff [...] Standards of Medical Care in Diabetes 2016, [place] [employer]. Diabetes Care. 2016.39(Suppl 1). Performed By: #### P T, CMP, CBC, PTT ####[facility] [place], [place] [phone] Potassium [Moles/Vol] 3.8 mmol/L Normal 3.7-5.[address] [facility] Comment on above: Performed By: #### P T, CMP, CBC, PTT ####[facility] [place], [place] [phone] Protein [Mass/Vol] 6.3 g/dL Normal 6.3-8.0 [facility] Comment on above: Performed By: #### P T, CMP, CBC, PTT ####[facility] [place], [place] [phone] Sodium [Moles/Vol] 139 mmol/L Normal 136-144 [facility] Comment on above: Performed By: #### P T, CMP, CBC, PTT ####[facility] [address] [place], [place] [phone] Urea nitrogen [Mass/Vol] 35 mg/dL High 7-21 [facility] Comment on above: Performed By: #### P T, CMP, CBC, PTT ####[facility] [address] [place], [place] [phone] NURSING PROGon 09-18-2020 NURSING PROG HNO ID: [id number] Author: Christie Ham RN Service: Nursing Author Type: Registered Nurse Type: Nursing Progress Note Filed: 09/18/2020 5:02 PM Note Text: Nursing Progress Note Patient Name: Cinthya Wilson Patient Location: [place] [address] Report received from Amanda JOVEL. This note was completed by: Christie Ham Normal [facility] OPERATIVE NOon 09-18-2020 OPERATIVE NO HNO ID: [id number] Author: Yamileth Martin MD Service: Urology Author Type: Physician Type: Operative Report Filed: 09/24/2020 12:32 AM Note Text: The [address] [address] or ([phone]) [facility] OPERATIVE REPORT Patient Name: Cinthya Wilson Patient Log ID: [id number] Surgery Date: 09/18/2020 Incision/Procedure Start Time: 2:16 PM Incision Close/Procedure End Time: 2:59 PM Surgeon(s) and Crimper Operator(s): Surgeon(s) and Role: * Yamileth Martin MD - Primary * Kaleb Young MD - Resident - Assisting 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 The 22 British rigid cystourethroscope was inserted atraumatically into the bladder. Rivera cystoscopy was performed with a 30 degree lens demonstrating the aforementioned findings. A 0.038 inch hybrid guidewire was passed alongside the previously placed left ureteral stent and into the left upper tract. The previously placed left ureteral stent was then removed with a grasper. A 5 British open-ended ureteral catheter was advanced to the distal ureter over the wire, and the wire was removed. A left retrograde pyelogram was performed demonstrating the aforementioned findings. The wire was replaced and the open-ended catheter was removed. A flexible ureteroscope was then advanced into the left renal pelvis over the wire. A 14Fr tucker catheter was placed. The wire was removed and a full pyeloscopy was performed demonstrating the aforementioned findings. A left renal pelvis washing, cup biopsy, and brush biopsy were all obtained and sent for pathologic and cytopathologic analysis. The entirety of the ureter was visualized on withdrawing the ureteroscope, and there were no abnormalities noted within the ureter. The ureteroscope and Tucker catheter were then removed. The patient tolerated [...] Urology September 18, 2020 3:30 PM Normal [facility] Protimeon 09-18-2020 PT INR 1.0 Normal 0.9-1.3 [facility] Comment on above: Result Comment: Alana min K Antagonist (VKA) Therapeutic Range: INR 2 to 3 (Target INR of 2.5) Note: For patients treated with VKA drugs, such as warfarin, the [place] [employer] 2012 Guideline recommends [...] Chest 2012, 141:7S-47S Sorin LOPEZ et al. JAC 2017, 70: 252-289 Performed By: #### P T, CMP, CBC, PTT ####[facility] [address] [place], [place] [phone] PT Sec 10.5 sec Normal 9.7-13.0 [facility] Comment on above: Performed By: #### P T, CMP, CBC, PTT ####[facility] [address] [place], [place] [phone] SURGICAL PATHOLOGYon SURGICAL PATHOLOGY Specimen originated from [facility] Specimen #: [id number] Submitting Physician: YAMILETH MARTIN M.D. (Q10) __ FINAL DIAGNOSIS Left renal pelvis, biopsy - Benign urothelial tissue with underlying vascular congestion, hemorrhage, and reactive changes. -Negative for malignancy. MURRAY/LOGAN 09/19/2020 COMMENT This case was reviewed at [...] in one cassette. Gross examination performed at [facility], [address] [place] [address] 09/18/2020 5:55:02 PM Date of Report: 09/19/2020 Date of Procedure: 09/18/2020 Date of Receipt: 09/18/2020 Submitted by: YAMILETH MARTIN M.D. (Q10) Location: E020 Diagnostic interpretation performed at [place] [address] [facility] [address]. CLIA Number: [id number] Normal [facility] Urine Cultureon 09-18-2020 Bacteria identified Cx Nom [...] F Levofloxacin RESISTANT >4 F Critically abnormal [facility] Comment on above: Performed By: #### U RCUL ####[facility] [address] [place], [place] [phone] HOSPon 09-08-2020 [place] [employer] Patient:Tj Wilson MRN: Height:5' 4 [Per patient[(1.626 [...] NOTE This is a virtual visit using [employer] video visit. It required patient-provider interaction for the medical decision making as documented below. 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 Patient had history of hematuria which was evaluated in [facility] before. She needsd blood transfusion. [...] - 1.40 mg/dL Final Imaging Uploaded in [facility] HISTORY REVIEWED (electronic chart updated): PMH: [...] mg t (more content not included)... Normal [facility] Basic Metabolic Panlon 09-03 Anion gap [Moles/Vol] 10 mmol/L Normal 9-[address] [facility] Comment on above: Performed By: #### B MP, CBC ####[address] [phone] Calcium [Mass/Vol] 8.5 mg/dL Normal 8.5-10.2 [facility] Comment on above: Performed By: #### B MP, CBC ####[address] [phone] Chloride [Moles/Vol] 109 mmol/L High 97-105 [facility] Comment on above: Performed By: #### B MP, CBC ####[place] [id number] [place], [place] [phone] CO2 [Moles/Vol] 21 mmol/L Low 22-30 [facility] Comment on above: Performed By: #### B MP, CBC ####[facility] [address] [place], [place] [phone] Creatinine [Mass/Vol] 2.02 mg/dL High 0.58-0.[address] [facility] Comment on above: Performed By: #### B MP, CBC ####[facility] [place], [place] [phone] eGFR- Amer. 29 Normal [facility] Comment on above: Performed By: #### B MP, CBC ####[facility] [place], [place] [phone] eGFR-All Other Races 24 . Normal [facility] Comment on above: Result Comment: eGFR [...] GFR. Performed By: #### B MP, CBC ####[address] [phone] Glucose [Mass/Vol] 100 mg/dL High 74-99 [facility] Comment on above: Result Comment: The [place] Diabetes [employer] (ADA) provides guidance for cutoff [...] Standards of Medical Care in Diabetes 2016, [place] [employer]. Diabetes Care. 2016.39(Suppl 1). Performed By: #### B MP, CBC ####[facility] [place], [place] [phone] Potassium [Moles/Vol] 4.8 mmol/L Normal 3.7-5.[address] [facility] Comment on above: Performed By: #### B MP, CBC ####[facility] [place], [place] [phone] Sodium [Moles/Vol] 140 mmol/L Normal 136-144 [facility] Comment on above: Performed By: #### B MP, CBC ####[place] [address] [place], [place] [phone] Urea nitrogen [Mass/Vol] 44 mg/dL High 7-21 [facility] Comment on above: Performed By: #### B MP, CBC ####[place] [address] [address] [place], [place] [phone] CBCon 09-03-2020 Absolute nRBC <0.01 Normal <0.01 [facility] Comment on above: Performed By: #### B MP, CBC ####[place] [address] [place], [place] [phone] Erythrocyte distribution width (RBC) [Ratio] 16.5 % High 11.5-15.0 [facility] Comment on above: Performed By: #### B MP, CBC ####[place] [address] [place], [place] [phone] Hematocrit (Bld) [Volume fraction] 29.0 % Low 36.0-46.0 [facility] Comment on above: Performed By: #### B MP, CBC ####[address] [phone] Hemoglobin (Bld) [Mass/Vol] 8.8 g/dL Low 11.5-15.5 [facility] Comment on above: Performed By: #### B MP, CBC ####[place] [address] [address] [place], [place] [phone] MCH 27.8 pG Normal 26.0-34.0 [facility] Comment on above: Performed By: #### B MP, CBC ####[place] [address] [place], [place] [phone] MCHC (RBC) [Mass/Vol] 30.3 g/dL Low 30.5-36.[address] [facility] Comment on above: Performed By: #### B MP, CBC ####[place] [address] [address] [place], [place] [phone] MCV (RBC) [Entitic vol] 91.8 fL Normal 80.0-100.0 [facility] Comment on above: Performed By: #### B MP, CBC ####[place] [address] [place], [place] [phone] Platelet mean volume (Bld) [Entitic vol] 9.7 fL Normal 9.0-12.7 [facility] Comment on above: Performed By: #### B MP, CBC ####[place] [address] [address] [place], [place] [phone] Platelets (Bld) [#/Vol] 259 10*3/uL Normal 150-400 [facility] Comment on above: Performed By: #### B MP, CBC ####[address] [place], [place] [phone] RBC (Bld) [#/Vol] 3.16 10*6/uL Low 3.90-5.20 [facility] Comment on above: Performed By: #### B MP, CBC ####[address] [place], [place] [phone] WBC (Bld) [#/Vol] 8.53 10*3/uL Normal 3.70-11.00 [facility] Comment on above: Performed By: #### B MP, CBC ####[place] [address] [place], [place] [phone] NURSING PROGon 09-03-2020 NURSING PROG HNO ID: [id number] Author: Allan Morrell RN Service: Nursing Author Type: Registered Nurse Type: Nursing Progress Note Filed: 09/03/2020 6:33 PM Note Text: Nursing Progress Note Patient Name: Cinthya Wilson Patient Location: [place] [id number] Daily Note: Patient discharged home in stable condition. DC instructions gone over with patient who verbalizes an understanding. All questions answered at time of discharge. Patient left unit via wheelchair from [facility] and driven home by son. This note was completed by: Allan Phipps [facility] Basic Metabolic Panlon 09-02 Anion gap [Moles/Vol] 13 mmol/L Normal 9-[address] [facility] Comment on above: Performed By: #### B MP, CBC ####[facility] [place], [place] [phone] Calcium [Mass/Vol] 8.2 mg/dL Low 8.5-10.2 [facility] Comment on above: Performed By: #### B MP, CBC ####[facility] [place], [place] [phone] Chloride [Moles/Vol] 108 mmol/L High 97-105 [facility] Comment on above: Performed By: #### B MP, CBC ####[facility] [address] [place], [place] [phone] CO2 [Moles/Vol] 18 mmol/L Low 22-30 [facility] Comment on above: Performed By: #### B MP, CBC ####[facility] [address], [place] [phone] Creatinine [Mass/Vol] 2.38 mg/dL High 0.58-0.[address] [facility] Comment on above: Performed By: #### B MP, CBC ####[facility] [address], [place] [phone] eGFR- Amer. 24 Normal [facility] Comment on above: Performed By: #### B MP, CBC ####[facility] [place], [place] [phone] eGFR-All Other Races 20 . Normal [facility] Comment on above: Result Comment: eGFR [...] GFR. Performed By: #### B MP, CBC ####[facility] [place] [address] [phone] Glucose [Mass/Vol] 127 mg/dL High 74-99 [facility] Comment on above: Result Comment: The [place] Diabetes Association (ADA) provides guidance for cutoff [...] Standards of Medical Care in Diabetes 2016, [place] [employer]. Diabetes Care. 2016.39(Suppl 1). Performed By: #### B MP, CBC ####[facility] [place], [place] [phone] Potassium [Moles/Vol] 4.1 mmol/L Normal 3.7-5.[address] [facility] Comment on above: Performed By: #### B MP, CBC ####[facility] [place], [place] [phone] Sodium [Moles/Vol] 139 mmol/L Normal 136-144 [facility] Comment on above: Performed By: #### B MP, CBC ####[place] [address] [address] [place], [place] [phone] Urea nitrogen [Mass/Vol] 54 mg/dL High 7-21 [facility] Comment on above: Performed By: #### B MP, CBC ####[place] [address] [address] [place], [place] [phone] CBCon 09-02-2020 Absolute nRBC <0.01 Normal <0.01 [facility] Comment on above: Performed By: #### B MP, CBC ####[place] [address] [place], [place] [phone] Erythrocyte distribution width (RBC) [Ratio] 16.8 % High 11.5-15.0 [facility] Comment on above: Performed By: #### B MP, CBC ####[place] [address] [address], [place] [phone] Hematocrit (Bld) [Volume fraction] 27.8 % Low 36.0-46.0 [facility] Comment on above: Performed By: #### B MP, CBC ####[place] [address] [address], [place] [phone] Hemoglobin (Bld) [Mass/Vol] 8.5 g/dL Low 11.5-15.5 [facility] Comment on above: Performed By: #### B MP, CBC ####[place] [address] [place], [place] [phone] MCH 27.9 pG Normal 26.0-34.0 [facility] Comment on above: Performed By: #### B MP, CBC ####[place] [address] [place], [place] [phone] MCHC (RBC) [Mass/Vol] 30.6 g/dL Normal 30.5-36.[address] [facility] Comment on above: Performed By: #### B MP, CBC ####[facility] [place], [place] [phone] MCV (RBC) [Entitic vol] 91.1 fL Normal 80.0-100.0 [facility] Comment on above: Performed By: #### B MP, CBC ####[place] [address] [place], [place] [phone] Platelet mean volume (Bld) [Entitic vol] 9.8 fL Normal 9.0-12.7 [facility] Comment on above: Performed By: #### B MP, CBC ####[address] [phone] Platelets (Bld) [#/Vol] 252 10*3/uL Normal 150-400 [facility] Comment on above: Performed By: #### B MP, CBC ####[address] [phone] RBC (Bld) [#/Vol] 3.05 10*6/uL Low 3.90-5.20 [facility] Comment on above: Performed By: #### B MP, CBC ####[address] [phone] WBC (Bld) [#/Vol] 11.29 10*3/uL High 3.70-11.00 [facility] Comment on above: Performed By: #### B MP, CBC ####[address] [phone] CNDSon 09-02-2020 CNDS HNO ID: [id number] Author: Fredo De Jesus MD Service: Urology Author Type: Resident Type: Discharge Summary Filed: 09/03/2020 9:47 AM Note Text: -------- Attestation signed by Teofilo Hess MD at 09/03/2020 10:14 AM Discussed with resident, agree with plan Teofilo Hess M.D. -------- The [address] [address] or [phone] [id number] T I A L I N F O R M A T I O N --- STANDARD [facility] DOCUMENT DISCHARGE SUMMARY Patient Name: [...] and polyarticular joint pain who presented to [facility] for evaluation of hematuria, she [...] Course: Cinthya Wilson presented with a 3-way utcker catheter for hematuria, her urine was clear on admission. Her CBI was weaned and her tucker catheter was removed. She passed her trial of void. We learned her blood and urine cultures were positive for E. Coli from the OSH, and essentially were rivera sensitive to antibiotics. She was continued on [...] meals. citalopram (more content not included)... Normal [facility] NURSING PROGon 09-02-2020 NURSING PROG HNO ID: [id number] Author: Leah Macias RN Service: ? Author Type: Registered Nurse Type: Nursing Progress Note Filed: 09/02/2020 3:01 PM Note Text: Nursing Progress Note Patient Name: Cinthya Wilson Patient Location: [place] [address]/[id number] Daily Note: Pt tearful and states to [...] request. This note was completed by: Leah Macias Normal [facility] APTTon 09-01-2020 aPTT Coag (Bld) [Time] 27.2 s Normal 23.0-32.4 [facility] Comment on above: Result Comment: Unfr [...] laboratory APTT reagent in use throughout the [facility]. Performed By: #### P TT, PT ####[address] [phone] Basic Metabolic Panlon 09-01 Anion gap [Moles/Vol] 14 mmol/L Normal 9-[address] [facility] Comment on above: Performed By: #### C BCDIF, BMP ####[address] [phone] Calcium [Mass/Vol] 8.0 mg/dL Low 8.5-10.2 [facility] Comment on above: Performed By: #### C BCDIF, BMP ####[place] [address] [place], [place] [phone] Chloride [Moles/Vol] 104 mmol/L Normal 97-105 [facility] Comment on above: Performed By: #### C BCDIF, BMP ####[place] [address] [place], [place] [phone] CO2 [Moles/Vol] 18 mmol/L Low 22-30 [facility] Comment on above: Performed By: #### C BCDIF, BMP ####[place] [address] [place], [place] [phone] Creatinine [Mass/Vol] 3.07 mg/dL High 0.58-0.[address] [facility] Comment on above: Performed By: #### C CHELSI SINCLAIR ####[facility] [place], [place] [phone] eGFR- Amer. 18 Normal [facility] Comment on above: Performed By: #### C YAHIR, CHELSI ####[facility] [place], [place] [phone] eGFR-All Other Races 15 . Normal [facility] Comment on above: Result Comment: eGFR [...] reflect actual GFR. Performed By: #### C CHELSI SINCLAIR ####[facility] [place], [place] [phone] Glucose [Mass/Vol] 192 mg/dL High 74-99 [facility] Comment on above: Result Comment: The [place] Diabetes Association (ADA) provides guidance for cutoff [...] Standards of Medical Care in Diabetes 2016, [place] [employer]. Diabetes Care. 2016.39(Suppl 1). Performed By: #### C YAHIR, BMP ####[place] [id number], [place] [phone] Potassium [Moles/Vol] 4.5 mmol/L Normal 3.7-5.[address] [facility] Comment on above: Performed By: #### C BCDIF, BMP ####[place] [address], [place] [phone] Sodium [Moles/Vol] 136 mmol/L Normal 136-144 [facility] Comment on above: Performed By: #### C BCDIF, BMP ####[place] [address], [place] [phone] Urea nitrogen [Mass/Vol] 64 mg/dL High 7-21 [facility] Comment on above: Performed By: #### C BCDIF, BMP ####[place] [address], [place] [phone] CBC and Differentialon 09-01 Abs Baso <0.03 Normal <0.11 [facility] Comment on above: Performed By: #### C BCDIF, BMP ####[place] [address], [place] [phone] Abs Bandera 0.75 k/uL Normal <0.87 [facility] Comment on above: Performed By: #### C BCDIF, BMP ####[place] [address], [place] [phone] Abs Neut 11.48 k/uL High 1.45-7.50 [facility] Comment on above: Performed By: #### C BCDIF, BMP ####[place] [address], [place] [phone] Absolute nRBC <0.01 Normal <0.01 [facility] Comment on above: Performed By: #### C BCDIF, BMP ####[place] [address], [place] [phone] Basophils/100 WBC (Bld) 0.1 % Normal [facility] Comment on above: Performed By: #### C BCPAULO, BMP ####[place] [address], [place] [phone] DTYPE Auto Diff Normal [facility] Comment on above: Performed By: #### C BCBEVERLEYF, BMP ####[place] [address] [place] [phone] Eosinophils (Bld) [#/Vol] 0.16 10*3/uL Normal <0.46 [facility] Comment on above: Performed By: #### C BCPAULO, BMP ####[place] [address], [place] [phone] Eosinophils/100 WBC (Bld) 1.2 % Normal [facility] Comment on above: Performed By: #### C BCDIF, BMP ####[place] [address] [place] [phone] Erythrocyte distribution width (RBC) [Ratio] 17.0 % High 11.5-15.0 [facility] Comment on above: Performed By: #### C BCDIChristopher, BMP ####[place] [address] [place] [phone] Hematocrit (Bld) [Volume fraction] 26.3 % Low 36.0-46.0 [facility] Comment on above: Performed By: #### C BCDIF, BMP ####[place] [address] [place] [phone] Hemoglobin (Bld) [Mass/Vol] 8.1 g/dL Low 11.5-15.5 [facility] Comment on above: Performed By: #### C BCDIF, BMP ####[place] [address] [place] [phone] Lymphocytes (Bld) [#/Vol] 0.85 10*3/uL Low 1.00-4.00 [facility] Comment on above: Performed By: #### C BCDIF, BMP ####[place] [address], [place] [phone] Lymphocytes/100 WBC (Bld) 6.4 % Normal [facility] Comment on above: Performed By: #### C BCDIF, BMP ####[place] [address] [place] [phone] MCH 28.4 pG Normal 26.0-34.0 [facility] Comment on above: Performed By: #### C BCDIF, BMP ####[place] [address], [place] [phone] MCHC (RBC) [Mass/Vol] 30.8 g/dL Normal 30.5-36.[address] [facility] Comment on above: Performed By: #### C BCDIF, BMP ####[place] [address], [place] [phone] MCV (RBC) [Entitic vol] 92.3 fL Normal 80.0-100.0 [facility] Comment on above: Performed By: #### C BCDIF, BMP ####[place] [address], [place] [phone] Monocytes/100 WBC (Bld) 5.7 % Normal [facility] Comment on above: Performed By: #### C BCDIF, BMP ####[place] [address], [place] [phone] Neutrophils/100 WBC (Bld) 86.6 % Normal [facility] Comment on above: Performed By: #### C BCDIF, BMP ####[place] [address], [place] [phone] NRBCs 0.0 /100 WBC Normal 0 [facility] Comment on above: Performed By: #### C BCDIF, BMP ####[facility] [place], [place] [phone] Platelet mean volume (Bld) [Entitic vol] 9.9 fL Normal 9.0-12.7 [facility] Comment on above: Performed By: #### C YAHIR, BMP ####[facility] [place], [place] [phone] Platelets (Bld) [#/Vol] 205 10*3/uL Normal 150-400 [facility] Comment on above: Performed By: #### C YAHIR, BMP ####[facility] [place], [place] [phone] RBC (Bld) [#/Vol] 2.85 10*6/uL Low 3.90-5.20 [facility] Comment on above: Performed By: #### C YAHIR BMP ####[place] [address], [place] [phone] WBC (Bld) [#/Vol] 13.25 10*3/uL High 3.70-11.00 [facility] Comment on above: Performed By: #### C YAHIR, BMP ####[facility] [place], [place] [phone] Confirm Blood Typeon 021 ABO/RH(D) Positive Normal [facility] Comment on above: Performed By: #### Tara ONABO ####[facility] [place], [place] [phone] HISTORY PHYSICALon HISTORY PHYSICAL HNO ID: [id number] Author: Mick Gallardo MD Service: Urology Author Type: Resident Type: HANDP Filed: 09/01/2020 7:18 AM Note Text: -------- Attestation signed by Teofilo Hess MD at 09/03/2020 10:16 AM Discussed with resident, agree with plan Teofilo Hess M.D. -------- [facility] UROLOGY HANDP Service Date: 09/01/2020 Service Time: 6:48 AM ASSESSMENT AND PLAN: 75 year old female with history of HTN, DM2, stage III CKD, CAD s/p 1 stent in 2010, and polyarticular joint pain who presented to [facility] with left-sided abdominal pain and was transferred to [facility] for definitive management of a left intrarenal [...] Mick Gallardo MD Urology Resident PGY-2 Pager: [phone] For weekend or after hours issues [place] [phone] HPI: 75 year old female with history of HTN, DM2, stage III CKD, CAD s/p 1 stent in 2010, and polyarticular joint pain who presented to [facility] with left-sided abdominal pain and was transferred to [facility] for definitive management of a left intrarenal mass c/f urothelial carcinoma. Had acute onset left lower quadrant abdominal pain for which she presented to [facility] 08/29. Associated with nausea. Originally [...] as need (more content not included)... Normal [facility] Intermed Rapid COVIDon 09-01 SARS-CoV-2 (COVID-19) RNA MADISON+probe Ql (Unsp spec) UPPER RESPIRATORY TRACT SWAB Normal [facility] Comment on above: Performed By: #### I TCOVD ####[facility] [address] [place], [place] [phone] SARS-CoV-2 (COVID-19) RNA MADISON+probe Ql (Unsp spec) Negative for COVID19 (SARS CoV2) by RT-PCR or equivalent method. Normal Negative for COVID19 (SARS CoV2) by RT-PCR or equivalent method. [facility] Comment on above: Result Comment: This test was developed and its performance characteristics determined by [facility]'s [facility] [place]. This test has been authorized by FDA under an Emergency Use Authorization (EUA). This test has been validated in accordance with the FDA's Guidance Document Policy for Diagnostics Testing in Laboratories Certified to Perform High Complexity Testing under CLIA prior to Emergency use Authorization for Coronavirus Disease 2019 during the Public Health Emergency issued on April 10, 2019. Test performed by [facility], [facility] [place], [address] [place], [place] [address]. Performed By: #### I TCOVD ####[address] [phone] Protimeon 09-01-2020 PT INR 1.0 Normal 0.9-1.3 [facility] Comment on above: Result Comment: Alana min K Antagonist (VKA) Therapeutic Range: INR 2 to 3 (Target INR of 2.5) Note: For patients treated with VKA drugs, such as warfarin, the [place] [employer] 2012 Guideline recommends [...] 2.5 to 3.5 (target INR of 3). Guyatt GH, et al. Chest 2012, 141:7S-47S Sorin RA, et al. [facility] 2017, 70: 252-289 Performed By: #### P TT, PT ####[address] [phone] PT Sec 10.4 sec Normal 9.7-13.0 [facility] Comment on above: Performed By: #### P TT, PT ####[facility] [place], [place] [phone] Type and Screenon 09-01-2020 ABO/RH(D) Positive Normal [facility] Comment on above: Performed By: #### T SCR ####[facility] [place], [place] [phone] Urine Cultureon 09-01-2020 Bacteria identified Cx Nom (U) Sp. Request/Comment: - Specimen received in preservative Culture Result - No growth (<1,000 CFU/ml) Normal [facility] Comment on above: Performed By: #### U RCUL ####[facility] [address] [place], [place] [phone] XR ABDOMEN 1V SUPINEon 09-01 XR ABDOMEN [...] dilated bowel. Degenerative changes of the spine. News Department Intern: PATY Transcribe Date/Time: Sep 01 2020 10:33A Dictated by : VINEET HANLEY This examination was interpreted and the report reviewed and electronically signed by: SAURABH MAJANO MD on Sep 01 2020 10:45AM EST [id number] Normal [facility] OT-XR CHEST 2 V IMPORTon OT-XR CHEST 2 V IMPORT Images were obtai dmitriy outside of [facility] [id number] Normal [facility] OT-XR RETROGRADE PYELOGRAM I MPORTon 08-30-2020 OT-XR RETROGRADE PYELOGRAM IMPORT Images were obtained outside of [facility] [id number] Normal [facility] OT-CT ABD/PELVIS WO CON IMPO RTon 08-29-2020 OT-CT ABD/PELVIS WO CON IMPORT Images were obtained outside of [facility] [id number] Normal [facility] Automated basophil %on 05-16 Basophils/100 WBC (Bld) 0.3 % [facility] Automated basophil counton 0 05-16-2020 Basophils (Bld) [#/Vol] 0.0 10*3/uL 0.0-0.2 [facility] Automated blood lymphocyte c ount (number/volume)on 05-16-2020 Lymphocytes (Bld) [#/Vol] 0.8 10*3/uL 1.00-4.8 [facility] Automated blood lymphocyte c ount as percentage of total leukocyteson 05-16-2020 Lymphocytes/100 WBC (Bld) 10.5 % [facility] Automated blood monocyte cou nton 05-16-2020 Monocytes (Bld) [#/Vol] 0.9 10*3/uL 0.0-0.8 [facility] Automated blood platelet cou nt (count/volume)on 05-16-2020 Platelets (Bld) [#/Vol] 364 10*3/uL 150-450 [facility] Automated blood platelet marciano n volume measurementon 05-16-2020 Platelet mean volume (Bld) [Entitic vol] 7.5 fL 6.3-10.7 [facility] Automated eosinophil %on Eosinophils/100 WBC (Bld) 2.0 % [facility] Automated eosinophil counton 05-16-2020 Eosinophils (Bld) [#/Vol] 0.2 10*3/uL 0.0-0.45 [facility] Automated erythrocyte distri bution width ratioon 05-16-2020 Erythrocyte distribution width (RBC) [Ratio] 20.9 % 11.9-15.3 [facility] Automated erythrocyte mean c orpuscular hemoglobin (mass per erythrocyte)on 05-16-2020 MCH (RBC) [Entitic mass] 28.3 pg 24.7-34.3 [facility] Automated erythrocyte mean c orpuscular hemoglobin concentration measurement (mass/volon 05-16-2020 MCHC (RBC) [Mass/Vol] 33.0 g/dL 32.0-35.0 [facility] Automated erythrocyte mean c orpuscular volumeon 05-16-2020 MCV (RBC) [Entitic vol] 85.9 fL 80-100 F [facility] Automated monocyte %on 05-16 Monocytes/100 WBC (Bld) 11.6 % F [facility] Automated neutrophil %on Neutrophils/100 WBC (Bld) 75.6 % [facility] Blood erythrocytes automated count (number/volume)on 05-16-2020 RBC (Bld) [#/Vol] 3.44 10*6/uL 3.60-5.00 [facility] Blood hemoglobin measurement (mass/volume)on 05-16-2020 Hemoglobin (Bld) [Mass/Vol] 9.8 g/dL 11.8-15.4 [facility] Blood leukocytes automated c ount (number/volume)on 05-16-2020 WBC (Bld) [#/Vol] 7.9 10*3/uL 4.5-11.0 [facility] Blood neutrophil count by au tomated method (number/volume)on 05-16-2020 Neutrophils (Bld) [#/Vol] 5.9 10*3/uL 1.8-7.7 [facility] COVID-19 Positive/Negativeon 05-16-2020 COVID-19 Positive/Negative Negative Negative [facility] Comment on above: Reference: NegativeT esting for SARS-CoV-2 by RT-PCRThis test was developed and its performance characteristics determined by [employer] and validated at the [facility]. This test has not been [...] non-blacks MDRD (S/P/Bld) [Vol rate/Area] 23 mL/Min [facility] Hematocrit [Volume Fraction] of Blood by Automated counton 05-16-2020 Hematocrit (Bld) [Volume fraction] 29.6 % 34.0-46.4 [facility] Otheron 05-16-2020 Coronavirus 2019 PCR Interp N/A [facility] GFR/1.73 sq M.predicted MDRD (S/P/Bld) [Vol rate/Area] 28 mL/Min [facility] Comment on above: GFR estimated refere nce range: According to KDOQI guidelines, <60 ml/min/1.73m2 is sufficient to diagnose a patient with chronic kidney disease. Nucleated RBC/100 WBC (Bld) [Ratio] 0.1 % 0-0.5 [facility] Pharmacy Creatinine Clearance (Chem N/A [facility] Serum or plasma calcium eugenie urement (mass/volume)on 05-16-2020 Calcium [Mass/Vol] 9.3 mg/dL 8.2-10.2 [facility] Serum or plasma chloride marciano surement (moles/volume)on 05-16-2020 Chloride [Moles/Vol] 97 mmol/L 95-114 [facility] Serum or plasma creatinine m easurement with calculation of estimated glomerular filtron 05-16-2020 Creatinine [Mass/Vol] 2.12 mg/dL 0.44-1.03 [facility] Serum or plasma glucose eugenie urement (mass/volume)on 05-16-2020 Glucose [Mass/Vol] 169 mg/dL 70-100 [facility] Comment on above: ADA recommended refe rence rangeRandom Glucose Reference Range is dependent on time and content of last meal. Glucose of more than 200 mg/dL in a nonstressed, ambulatory subject supports the diagnosis of Diabetes Mellitus. Serum or plasma potassium me asurement (moles/volume)on 05-16-2020 Potassium [Moles/Vol] 4.6 mmol/L 3.5-5.1 [facility] Serum or plasma sodium measu rement (moles/volume)on 05-16-2020 Sodium [Moles/Vol] 133 mmol/L 136-146 [facility] Serum or plasma total carbon dioxide measurement (moles/volume)on 05-16-2020 CO2 [Moles/Vol] 26.1 mmol/L 22.0-30.0 [facility] Serum or plasma urea nitroge n measurement (mass/volume)on 05-16-2020 Urea nitrogen [Mass/Vol] 39 mg/dL 9-23 [facility] Body fluid differential cell counton 03-27-2020 Differential panel - Body fluid 12 % [facility] Comment on above: The reference interv al and other method performance specifications have not been established for this body fluid. The test result must be integrated into the clinical context for interpretation. Color of Spun Body fluidon 0 03-27-2020 Color (Spun body fld) colorless [facility] Comment on above: The reference interv al and other method performance specifications have not been established for this body fluid. The test result must be integrated into the clinical context for interpretation. Determination of appearance of body fluidon 03-27-2020 Appearance (Body fld) clear [facility] Comment on above: The reference interv al and other method performance specifications have not been established for this body fluid. The test result must be integrated into the clinical context for interpretation. Evaluation of color of body fluidon 03-27-2020 Color (Body fld) colorless [facility] Comment on above: The reference interv al and other method performance specifications have not been established for this body fluid. The test result must be integrated into the clinical context for interpretation. Manual body fluid eosinophil s/100 leukocyteson 03-27-2020 Eosinophils/100 WBC Manual cnt (Body fld) 0 /100{WBC} 0-3 [facility] Manual body fluid erythrocyt es count (number/volume)on 03-27-2020 RBC Manual cnt (Body fld) [#/Vol] 18 /uL [facility] Comment on above: The reference interv al and other method performance specifications have not been established for this body fluid. The test result must be integrated into the clinical context for interpretation. Manual body fluid leukocytes count (number/volume)on 03-27-2020 WBC Manual cnt (Body fld) [#/Vol] 49 /uL [facility] Comment on above: The reference interv al and other method performance specifications have not been established for this body fluid. The test result must be integrated into the clinical context for interpretation. Manual body fluid lymphocyte s/100 leukocyteson 03-27-2020 Lymphocytes/100 WBC Manual cnt (Body fld) 2 % [facility] Comment on above: The reference interv al and other method performance specifications have not been established for this body fluid. The test result must be integrated into the clinical context for interpretation. Manual body fluid neutrophil s/100 leukocyteson 03-27-2020 Neutrophils/100 WBC (Body fld) 86 % [facility] Comment on above: The reference interv al and other method performance specifications have not been established for this body fluid. The test result must be integrated into the clinical context for interpretation. Transfusion reaction panel ( ABO, Rh)on 03-27-2020 Microscopic observation Gram stain Nom (Unsp spec) [facility] BASIC METABOLIC PANELon 090 Calcium [Mass/Vol] 9.2 mg/dL Normal 8.6-10.3 [facility] Comment on above: Order Comment: The A ptima SARS-CoV-2 assay is a nucleic acid amplification test intended for the qualitative detection of RNA from SARS-CoV-2 isolated and purified from nasopharyngeal (MATERIAL LOADER),oropharyngeal (OP), nasal swab, sputum, and bronchoalveolar lavage (BAL) specimens from patients with signs and symptoms of infection who are suspected of COVID-19. Results are for the identification of SARS-CoV-2 RNA. The SARS-CoV-2 RNA is generally detectable during the acute phase of infection. The Aptima SARS-CoV-2 Assay on the [employer] and [employer] Fusion system is intended for use by laboratory personnel specifically instructed and trained in the operation of the [facility] and [employer] Fusion system. The Aptima SARS-CoV-2 assay is [...] information. Performed By: #### 3 1792 #### [facility] [address] [facility] [address], [facility] Chloride [Moles/Vol] 94 mmol/L Low 98-107 [facility] Comment on above: Order Comment: The A ptima SARS-CoV-2 assay is a nucleic acid amplification test intended for the qualitative detection of RNA from SARS-CoV-2 isolated and purified from nasopharyngeal (MATERIAL LOADER),oropharyngeal (OP), nasal swab, sputum, and bronchoalveolar lavage (BAL) specimens from patients with signs and symptoms of infection who are suspected of COVID-19. Results are for the identification of SARS-CoV-2 RNA. The SARS-CoV-2 RNA is generally detectable during the acute phase of infection. The Aptima SARS-CoV-2 Assay on the [employer] and [employer] Fusion system is intended for use by laboratory personnel specifically instructed and trained in the operation of the [facility] and [employer] Fusion system. The Aptima SARS-CoV-2 assay is [...] information. Performed By: #### 3 1792 #### [facility] [address] [facility] [address], [facility] CO2 [Moles/Vol] 26 mmol/L Normal 21-31 [facility] Comment on above: Order Comment: The A ptima SARS-CoV-2 assay is a nucleic acid amplification test intended for the qualitative detection of RNA from SARS-CoV-2 isolated and purified from nasopharyngeal (MATERIAL LOADER),oropharyngeal (OP), nasal swab, sputum, and bronchoalveolar lavage (BAL) specimens from patients with signs and symptoms of infection who are suspected of COVID-19. Results are for the identification of SARS-CoV-2 RNA. The SARS-CoV-2 RNA is generally detectable during the acute phase of infection. The Aptima SARS-CoV-2 Assay on the [employer] system is intended for use by laboratory personnel specifically instructed and trained in the operation of the [employer] system. The Aptima SARS-CoV-2 assay is [...] information. Performed By: #### 3 1792 #### [facility] [address] [facility]. [address] Creatinine [Mass/Vol] 3.86 mg/dL High 0.60-1.20 [facility] Comment on above: Order Comment: The A ptima SARS-CoV-2 assay is a nucleic acid amplification test intended for the qualitative detection of RNA from SARS-CoV-2 isolated and purified from nasopharyngeal (MATERIAL LOADER),oropharyngeal (OP), nasal swab, sputum, and bronchoalveolar lavage (BAL) specimens from patients with signs and symptoms of infection who are suspected of COVID-19. Results are for the identification of SARS-CoV-2 RNA. The SARS-CoV-2 RNA is generally detectable during the acute phase of infection. The Aptima SARS-CoV-2 Assay on the [employer] system is intended for use by laboratory personnel specifically instructed and trained in the operation of the [employer] system. The Aptima SARS-CoV-2 assay is [...] information. Performed By: #### 3 1792 #### [facility] [address] [place] [address], [facility] GFR/1.73 sq M predicted among blacks MDRD (S/P/Bld) [Vol rate/Area] 14 ml/min/1.73sq m Abnormal >60 [facility] Comment on above: Order Comment: The A ptima SARS-CoV-2 assay is a nucleic acid amplification test intended for the qualitative detection of RNA from SARS-CoV-2 isolated and purified from nasopharyngeal (MATERIAL LOADER),oropharyngeal (OP), nasal swab, sputum, and bronchoalveolar lavage (BAL) specimens from patients with signs and symptoms of infection who are suspected of COVID-19. Results are for the identification of SARS-CoV-2 RNA. The SARS-CoV-2 RNA is generally detectable during the acute phase of infection. The Aptima SARS-CoV-2 Assay on the [employer] system is intended for use by laboratory personnel specifically instructed and trained in the operation of the [employer] system. The Aptima SARS-CoV-2 assay is [...] years Performed By: #### 3 1792 #### [facility] [address] [facility] [address], [facility] GFR/1.73 sq M predicted among non-blacks MDRD (S/P/Bld) [Vol rate/Area] 11 ml/min/1.73sq m Abnormal >60 [facility] Comment on above: Order Comment: The A ptima SARS-CoV-2 assay is a nucleic acid amplification test intended for the qualitative detection of RNA from SARS-CoV-2 isolated and purified from nasopharyngeal (MATERIAL LOADER),oropharyngeal (OP), nasal swab, sputum, and bronchoalveolar lavage (BAL) specimens from patients with signs and symptoms of infection who are suspected of COVID-19. Results are for the identification of SARS-CoV-2 RNA. The SARS-CoV-2 RNA is generally detectable during the acute phase of infection. The Aptima SARS-CoV-2 Assay on the [employer] system is intended for use by laboratory personnel specifically instructed and trained in the operation of the [employer] system. The Aptima SARS-CoV-2 assay is [...] years Performed By: #### 3 1792 #### [address] Glucose [Mass/Vol] 160 mg/dL High 70-100 [facility] Comment on above: Order Comment: The A ptima SARS-CoV-2 assay is a nucleic acid amplification test intended for the qualitative detection of RNA from SARS-CoV-2 isolated and purified from nasopharyngeal (MATERIAL LOADER),oropharyngeal (OP), nasal swab, sputum, and bronchoalveolar lavage (BAL) specimens from patients with signs and symptoms of infection who are suspected of COVID-19. Results are for the identification of SARS-CoV-2 RNA. The SARS-CoV-2 RNA is generally detectable during the acute phase of infection. The Aptima SARS-CoV-2 Assay on the [employer] system is intended for use by laboratory personnel specifically instructed and trained in the operation of the [employer] [facility] [employer] system. The Aptima SARS-CoV-2 assay is [...] information. Performed By: #### 3 1792 #### [facility] [address] [facility] [address], [facility] Potassium [Moles/Vol] 3.4 mmol/L Low 3.5-5.1 [facility] Comment on above: Order Comment: The A ptima SARS-CoV-2 assay is a nucleic acid amplification test intended for the qualitative detection of RNA from SARS-CoV-2 isolated and purified from nasopharyngeal (MATERIAL LOADER),oropharyngeal (OP), nasal swab, sputum, and bronchoalveolar lavage (BAL) specimens from patients with signs and symptoms of infection who are suspected of COVID-19. Results are for the identification of SARS-CoV-2 RNA. The SARS-CoV-2 RNA is generally detectable during the acute phase of infection. The Aptima SARS-CoV-2 Assay on the [employer] and [employer] Fusion system is intended for use by laboratory personnel specifically instructed and trained in the operation of the [employer] [facility] and [employer] system. The Aptima SARS-CoV-2 assay is [...] information. Performed By: #### 3 1792 #### [facility] [address] [facility] [address], [facility] Sodium [Moles/Vol] 133 mmol/L Low 136-145 [facility] Comment on above: Order Comment: The A ptima SARS-CoV-2 assay is a nucleic acid amplification test intended for the qualitative detection of RNA from SARS-CoV-2 isolated and purified from nasopharyngeal (MATERIAL LOADER),oropharyngeal (OP), nasal swab, sputum, and bronchoalveolar lavage (BAL) specimens from patients with signs and symptoms of infection who are suspected of COVID-19. Results are for the identification of SARS-CoV-2 RNA. The SARS-CoV-2 RNA is generally detectable during the acute phase of infection. The Aptima SARS-CoV-2 Assay on the [employer] system is intended for use by laboratory personnel specifically instructed and trained in the operation of the [employer] system. The Aptima SARS-CoV-2 assay is [...] information. Performed By: #### 3 1792 #### [facility] [address] [facility]. [address] Urea nitrogen [Mass/Vol] 109 mg/dL High 7-25 [facility] Comment on above: Order Comment: The A ptima SARS-CoV-2 assay is a nucleic acid amplification test intended for the qualitative detection of RNA from SARS-CoV-2 isolated and purified from nasopharyngeal (MATERIAL LOADER),oropharyngeal (OP), nasal swab, sputum, and bronchoalveolar lavage (BAL) specimens from patients with signs and symptoms of infection who are suspected of COVID-19. Results are for the identification of SARS-CoV-2 RNA. The SARS-CoV-2 RNA is generally detectable during the acute phase of infection. The Aptima SARS-CoV-2 Assay on the [employer] system is intended for use by laboratory personnel specifically instructed and trained in the operation of the [employer] [facility] [employer] system. The Aptima SARS-CoV-2 assay is [...] information. Performed By: #### 3 1792 #### [facility] [address] [place] [address], [place] LIVER BATTERYon 10-14-2019 Albumin [Mass/Vol] 4.0 g/dL Normal 3.5-5.7 [facility] Comment on above: Performed By: #### 3 1791 #### [facility] [address] [address], [place] ALKALINE PHOSPH 69 IU/L Normal 34-104 [facility] Comment on above: Performed By: #### 3 1791 #### [facility] [address] [address], [place] ALT [Catalytic activity/Vol] 26 U/L Normal 7-52 [facility] Comment on above: Performed By: #### 3 1791 #### [facility] [address] [place] [address], [place] AST [Catalytic activity/Vol] 21 U/L Normal 13-39 [facility] Comment on above: Performed By: #### 3 1791 #### [facility] [address] [place] [address], [place] Bilirubin [Mass/Vol] 0.4 mg/dL Normal 0.3-1.0 [facility] Comment on above: Performed By: #### 3 1791 #### [facility] [address] [address], [place] Bilirubin.direct [Mass/Vol] 0.0 mg/dL Normal 0.0-0.2 [facility] Comment on above: Performed By: #### 3 1791 #### [facility] [address] [place] [address], [place] Protein [Mass/Vol] 6.6 g/dL Normal 6.0-8.3 [facility] Comment on above: Performed By: #### 3 1791 #### [facility] [address] [place] [address], [place] POC GLUCOSE LABon 10-14-2019 Glucose [Mass/Vol] 179 mg/dL High 70-100 [facility] Comment on above: Performed By: #### 3 1792 #### [facility] [address] [place] [address], [place] Glucose [Mass/Vol] 263 mg/dL High 70-100 [facility] Comment on above: Performed By: #### 3 1792 #### [facility] [address] [place] [address], [place] Glucose [Mass/Vol] 301 mg/dL High 70-100 [facility] Comment on above: Performed By: #### 3 1792 #### [facility] [address] [place] [address], [place] Glucose [Mass/Vol] 163 mg/dL High 70-100 [facility] Comment on above: Performed By: #### 3 1792 #### [facility] [address] [place] [address], [place] BASIC METABOLIC PANELon 09-0 -2019 Calcium [Mass/Vol] 9.4 mg/dL Normal 8.6-10.3 [facility] Comment on above: Order Comment: Lincoln nephrosis Performed By: #### 0 0071, 25447 ####[facility] [address], [place] Chloride [Moles/Vol] 91 mmol/L Low 98-107 [facility] Comment on above: Order Comment: [place] nephrosis Performed By: #### 0 0071, 72139 ####[facility] [address], [place] CO2 [Moles/Vol] 25 mmol/L Normal 21-31 [facility] Comment on above: Order Comment: [place] nephrosis Performed By: #### 0 0071, 16451 ####[facility] [address], [place] Creatinine [Mass/Vol] 3.90 mg/dL High 0.60-1.20 [facility] Comment on above: Order Comment: [place] nephrosis Performed By: #### 0 0071, 86873 ####[facility] [address], [facility] GFR/1.73 sq M predicted among blacks MDRD (S/P/Bld) [Vol rate/Area] 13 ml/min/1.73sq m Abnormal >60 [facility] Comment on above: Order Comment: [place] nephrosis Result Comment: Calc ulation may not be valid for patients over 70 years Performed By: #### 0 0071, 23527 ####[facility] [address], [facility] GFR/1.73 sq M predicted among non-blacks MDRD (S/P/Bld) [Vol rate/Area] 11 ml/min/1.73sq m Abnormal >60 [facility] Comment on above: Order Comment: [place] nephrosis Result Comment: Calc ulation may not be valid for patients over 70 years Performed By: #### 0 0071, 47141 ####[facility] [facility] [place] [address], [facility] Glucose [Mass/Vol] 204 mg/dL High 70-100 [facility] Comment on above: Order Comment: [place] nephrosis Performed By: #### 0 0071, 95307 ####[facility] [facility] [place] [address], [facility] Potassium [Moles/Vol] 3.4 mmol/L Low 3.5-5.1 [facility] Comment on above: Order Comment: [place] nephrosis Performed By: #### 0 0071, 17344 ####[facility] [place] [address], [facility] Sodium [Moles/Vol] 132 mmol/L Low 136-145 [facility] Comment on above: Order Comment: [place] nephrosis Performed By: #### 0 0071, 39041 ####[facility] [facility].[address] Urea nitrogen [Mass/Vol] 101 mg/dL High 7-25 [facility] Comment on above: Order Comment: [place] nephrosis Performed By: #### 0 0071, 79800 ####[facility] CBC COMPLETE BLOOD COUNTon 10-13-2019 Erythrocyte distribution width (RBC) [Ratio] 14.5 % Normal 11.5-15.0 [facility] Comment on above: Order Comment: [place] nephrosis Performed By: #### 5 0608 ####[address] Hematocrit (Bld) [Volume fraction] 33.2 % Low 36.0-45.0 [facility] Comment on above: Order Comment: [place] nephrosis Performed By: #### 5 0608 ####[place] [address] [facility].[address] Hemoglobin (Bld) [Mass/Vol] 10.8 g/dL Low 12.0-15.0 [facility] Comment on above: Order Comment: [place] nephrosis Performed By: #### 5 0608 ####[place] [address] [address] MCH (RBC) [Entitic mass] 29.6 pg Normal 27.0-33.0 [facility] Comment on above: Order Comment: [place] nephrosis Performed By: #### 5 0608 ####[facility] [facility] [address], [facility] MCHC (RBC) [Mass/Vol] 32.5 g/dL Normal 32.0-35.0 [facility] Comment on above: Order Comment: [place] nephrosis Performed By: #### 5 0608 ####[facility] [facility] [place] [address], [facility] MCV (RBC) [Entitic vol] 91.0 fL Normal 82.0-98.0 [facility] Comment on above: Order Comment: [place] nephrosis Performed By: #### 5 0608 ####[facility] Nucleated RBC/100 WBC (Bld) [Ratio] 0 % Normal 0-0 [facility] Comment on above: Order Comment: [place] nephrosis Performed By: #### 5 0608 ####[facility] PLAT CNT 199 10*3/uL Normal 150-400 [facility] Comment on above: Order Comment: [place] nephrosis Performed By: #### 5 0608 ####[facility] RBC (Bld) [#/Vol] 3.65 10*6/uL Low 3.80-5.00 [facility] Comment on above: Order Comment: [place] nephrosis Performed By: #### 5 0608 ####[facility] WBC (Bld) [#/Vol] 6.89 10*3/uL Normal 4.00-10.60 [facility] Comment on above: Order Comment: [place] nephrosis Performed By: #### 5 0608 ####[facility] Cardiovascular Lab Reporton 10-13-2019 Cardiovascular Lab Report [facility] MR #: [id number] Department of Physician: Rand Tellez M.D. Division of Service Date: 10/13/2019 Cardiology Birthdate: 1945 Adult Cardiovascular Room #: 3AB [id number] Services [facility] [address] [place] [address] Cardiovascular Laboratory Report FINAL IMPRESSIONS: 1. Low [...] right internal jugular vein was obtained. A 6-British 11 cm sheath was inserted without difficulty. [...] Lutz M.D. Date Trans: 10/13/2019 03:08 P/adán [id number] cc: Lily Del Real M.D. [address] [facility] [address] [address] [facility] Emergency Room [address] [facility] [address] Normal [facility] MAGNESIUM BLOODon 10-13-2019 Magnesium [Mass/Vol] 2.2 mg/dL Normal 1.9-2.7 [facility] Comment on above: Order Comment: [place] nephrosis Performed By: #### 0 0071, 37639 ####[facility] [address], [place] POC GLUCOSE LABon 10-13-2019 Glucose [Mass/Vol] 230 mg/dL High 70-100 [facility] Comment on above: Performed By: #### 8 5499 ####[facility] [place] [address], [place] Glucose [Mass/Vol] 192 mg/dL High 70-100 [facility] Comment on above: Performed By: #### 8 5499 ####[facility] [place] [address], [place] Glucose [Mass/Vol] 203 mg/dL High 70-100 [facility] Comment on above: Performed By: #### 8 5499 ####[facility] [place] [address], [place] Glucose [Mass/Vol] 218 mg/dL High 70-100 [facility] Comment on above: Performed By: #### 8 5499 ####[facility] [place] [address], [place] BASIC METABOLIC PANELon Calcium [Mass/Vol] 9.6 mg/dL Normal 8.6-10.3 [facility] Comment on above: Order Comment: No: D o not add to previous draw Performed By: #### 0 0071, 10628, 23225 #### [facility] [address] [place] [address], [place] Chloride [Moles/Vol] 94 mmol/L Low 98-107 [facility] Comment on above: Order Comment: No: D o not add to previous draw Performed By: #### 0 0071, 13072, 78289 #### [facility] [address] [place] [address], [place] CO2 [Moles/Vol] 27 mmol/L Normal 21-31 [facility] Comment on above: Order Comment: No: D o not add to previous draw Performed By: #### 0 0071, 24950, 35320 #### [facility] [address] [place] [address], [place] Creatinine [Mass/Vol] 3.32 mg/dL High 0.60-1.20 [facility] Comment on above: Order Comment: No: D o not add to previous draw Performed By: #### 0 0071, 80187, 05483 #### [facility] [address] [place] [address], [place] GFR/1.73 sq M predicted among blacks MDRD (S/P/Bld) [Vol rate/Area] 16 ml/min/1.73sq m Abnormal >60 [facility] Comment on above: Order Comment: No: D o not add to previous draw Result Comment: Calc ulation may not be valid for patients over 70 years Performed By: #### 0 0071, 24845, 81948 #### [facility] [address] [place] [address], [place] GFR/1.73 sq M predicted among non-blacks MDRD (S/P/Bld) [Vol rate/Area] 13 ml/min/1.73sq m Abnormal >60 [facility] Comment on above: Order Comment: No: D o not add to previous draw Result Comment: Calc ulation may not be valid for patients over 70 years Performed By: #### 0 0071, 99862, 10395 #### [facility] [address] [place] [address], [place] Glucose [Mass/Vol] 141 mg/dL High 70-100 [facility] Comment on above: Order Comment: No: D o not add to previous draw Performed By: #### 0 0071, 39734, 46314 #### [facility] [address] [address], [facility] Potassium [Moles/Vol] 3.7 mmol/L Normal 3.5-5.1 [facility] Comment on above: Order Comment: No: D o not add to previous draw Performed By: #### 0 0071, 07313, 44764 #### [facility] [address] [address], [facility] Sodium [Moles/Vol] 133 mmol/L Low 136-145 [facility] Comment on above: Order Comment: No: D o not add to previous draw Performed By: #### 0 0071, 82942, 34811 #### [facility] [address] [address], [facility] Urea nitrogen [Mass/Vol] 85 mg/dL High 7-25 [facility] Comment on above: Order Comment: No: D o not add to previous draw Performed By: #### 0 0071, 07663, 22340 #### [facility] [address] [address], [facility] BNP (B-TYPE NATRIURETIC PEPT CAILIN)on 10-12-2019 Natriuretic peptide B (Bld) [Mass/Vol] 41 pg/mL Normal 0-100 [facility] Comment on above: Order Comment: Lincoln nephrosis Result Comment: Give n the appropriate clinical setting a BNP result of >100 pg/mL indicates congestive heart failure. Performed By: #### 8 5123 ####[facility] [place] [address], [facility] CBC COMPLETE BLOOD COUNTon 0 10-12-2019 Erythrocyte distribution width (RBC) [Ratio] 14.6 % Normal 11.5-15.0 [facility] Comment on above: Order Comment: No: D o not add to previous draw Performed By: #### 0 0071, 67296, 11878 #### [facility] [address] [address], [facility] Hematocrit (Bld) [Volume fraction] 32.5 % Low 36.0-45.0 [facility] Comment on above: Order Comment: No: D o not add to previous draw Performed By: #### 0 0071, , 28401 #### [facility] [address] [address], [facility] Hemoglobin (Bld) [Mass/Vol] 10.7 g/dL Low 12.0-15.0 [facility] Comment on above: Order Comment: No: D o not add to previous draw Performed By: #### 0 0071, , 35004 #### [facility] [address] [address], [facility] MCH (RBC) [Entitic mass] 29.7 pg Normal 27.0-33.0 [facility] Comment on above: Order Comment: No: D o not add to previous draw Performed By: #### 0 007, , 80711 #### [facility] [address] [place] [address], [facility] MCHC (RBC) [Mass/Vol] 32.9 g/dL Normal 32.0-35.0 [facility] Comment on above: Order Comment: No: D o not add to previous draw Performed By: #### 0 007, , 30981 #### [facility] [address] [place] [address], [facility] MCV (RBC) [Entitic vol] 90.3 fL Normal 82.0-98.0 [facility] Comment on above: Order Comment: No: D o not add to previous draw Performed By: #### 0 0071, , 04509 #### [facility] [address] [address], [facility] Nucleated RBC/100 WBC (Bld) [Ratio] 0 % Normal 0-0 [facility] Comment on above: Order Comment: No: D o not add to previous draw Performed By: #### 0 0071, , 99306 #### [facility] [address] [place] [address], [facility] PLAT CNT 202 10*3/uL Normal 150-400 [facility] Comment on above: Order Comment: No: D o not add to previous draw Performed By: #### 0 0071, 46557, 91057 #### [facility] [address] [place] [address], [facility] RBC (Bld) [#/Vol] 3.60 10*6/uL Low 3.80-5.00 [facility] Comment on above: Order Comment: No: D o not add to previous draw Performed By: #### 0 0071, , 90453 #### [facility] [address] [facility] [place] [address], [facility] WBC (Bld) [#/Vol] 8.02 10*3/uL Normal 4.00-10.60 [facility] Comment on above: Order Comment: No: D o not add to previous draw Performed By: #### 0 0071, , 94879 #### [facility] [address] [facility] [place] [address] D DIMER TESTon 10-12-2019 D-DIMER TEST 0.27 mcg/mL FEU Normal 0.01-0.49 [facility] Comment on above: Order Comment: No: D o not add to previous draw Result Comment: D-Di kia values of less than 0.50 ug/ml (FEU) are considered to be a negative predictor of thrombosis. However, the D-Dimer result should be used in conjunction with pretest probability and should not be used alone to diagnose a thrombotic event. Performed By: #### 0 0071, 63748, 78177 #### [facility] [address] [facility] [place] [address], [facility] MAGNESIUM BLOODon 10-12-2019 Magnesium [Mass/Vol] 2.1 mg/dL Normal 1.9-2.7 [facility] Comment on above: Order Comment: No: D o not add to previous draw Performed By: #### 0 0071, 66737, 93805 #### [facility] [address] [address], [place] POC GLUCOSE LABon 10-12-2019 Glucose [Mass/Vol] 268 mg/dL High 70-100 [facility] Comment on above: Performed By: #### 8 5499 ####[facility] [place] [address], [place] Glucose [Mass/Vol] 109 mg/dL High 70-100 [facility] Comment on above: Performed By: #### 8 5499 ####[facility] [address], [place] Glucose [Mass/Vol] 210 mg/dL High 70-100 [facility] Comment on above: Performed By: #### 0 0071, 20354, 96103 #### [facility] [address] [address], [place] Glucose [Mass/Vol] 174 mg/dL High 70-100 [facility] Comment on above: Performed By: #### 0 0071, 37958, 52085 #### [facility] [address] [place] [address], [place] BASIC METABOLIC PANELon 08-3 Calcium [Mass/Vol] 9.6 mg/dL Normal 8.6-10.3 [facility] Comment on above: Order Comment: No: D o not add to previous draw Performed By: #### 0 0071, 86441, 23380 #### [facility] [address] [address], [place] Chloride [Moles/Vol] 98 mmol/L Normal 98-107 [facility] Comment on above: Order Comment: No: D o not add to previous draw Performed By: #### 0 0071, 42250, 14387 #### [facility] [address] [address], [place] CO2 [Moles/Vol] 26 mmol/L Normal 21-31 [facility] Comment on above: Order Comment: No: D o not add to previous draw Performed By: #### 0 0071, 98825, 68665 #### [facility] [address] [place] [address], [place] Creatinine [Mass/Vol] 3.14 mg/dL High 0.60-1.20 [facility] Comment on above: Order Comment: No: D o not add to previous draw Performed By: #### 0 0071, 46019, 21422 #### [facility] [address] [place] [address], [place] GFR/1.73 sq M predicted among blacks MDRD (S/P/Bld) [Vol rate/Area] 18 ml/min/1.73sq m Abnormal >60 [facility] Comment on above: Order Comment: No: D o not add to previous draw Result Comment: Calc ulation may not be valid for patients over 70 years Performed By: #### 0 0071, 51457, 48050 #### [facility] [address] [place] [address], [place] GFR/1.73 sq M predicted among non-blacks MDRD (S/P/Bld) [Vol rate/Area] 15 ml/min/1.73sq m Abnormal >60 [facility] Comment on above: Order Comment: No: D o not add to previous draw Result Comment: Calc ulation may not be valid for patients over 70 years Performed By: #### 0 0071, 12185, 22443 #### [facility] [address] [place] [address], [place] Glucose [Mass/Vol] 119 mg/dL High 70-100 [facility] Comment on above: Order Comment: No: D o not add to previous draw Performed By: #### 0 0071, 06962, 10245 #### [facility] [address] [place] [address], [place] Potassium [Moles/Vol] 3.8 mmol/L Normal 3.5-5.1 [facility] Comment on above: Order Comment: No: D o not add to previous draw Performed By: #### 0 0071, 27929, 11591 #### [facility] [address] [place] [address], [facility] Sodium [Moles/Vol] 135 mmol/L Low 136-145 [facility] Comment on above: Order Comment: No: D o not add to previous draw Performed By: #### 0 0071, 58194, 70114 #### [facility] [address] [place] [address], [facility] Urea nitrogen [Mass/Vol] 81 mg/dL High 7-25 [facility] Comment on above: Order Comment: No: D o not add to previous draw Performed By: #### 0 0071, , 57719 #### [facility] [address] CBC COMPLETE BLOOD COUNTon 10-11-2019 Erythrocyte distribution width (RBC) [Ratio] 14.4 % Normal 11.5-15.0 [facility] Comment on above: Order Comment: No: D o not add to previous draw Performed By: #### 0 0071, 48796, 98843 #### [facility] [address] [place] [address], [facility] Hematocrit (Bld) [Volume fraction] 31.3 % Low 36.0-45.0 [facility] Comment on above: Order Comment: No: D o not add to previous draw Performed By: #### 0 0071, 92844, 48234 #### [facility] [address] [place] [id number], [facility] Hemoglobin (Bld) [Mass/Vol] 10.0 g/dL Low 12.0-15.0 [facility] Comment on above: Order Comment: No: D o not add to previous draw Performed By: #### 0 0071, 50157, 90055 #### [facility] [address] [facility] MCH (RBC) [Entitic mass] 29.4 pg Normal 27.0-33.0 [facility] Comment on above: Order Comment: No: D o not add to previous draw Performed By: #### 0 0071, 34292, 87532 #### [facility] [address] [facility] [address], [facility] MCHC (RBC) [Mass/Vol] 31.9 g/dL Low 32.0-35.0 [facility] Comment on above: Order Comment: No: D o not add to previous draw Performed By: #### 0 0071, 47526, 72733 #### [facility] [address] [place] [address], [facility] MCV (RBC) [Entitic vol] 92.1 fL Normal 82.0-98.0 [facility] Comment on above: Order Comment: No: D o not add to previous draw Performed By: #### 0 0071, 66999, 48128 #### [facility] [address] Nucleated RBC/100 WBC (Bld) [Ratio] 0 % Normal 0-0 [facility] Comment on above: Order Comment: No: D o not add to previous draw Performed By: #### 0 0071, 88571, 50374 #### [facility] [address] [place] [address], [facility] PLAT CNT 186 10*3/uL Normal 150-400 [facility] Comment on above: Order Comment: No: D o not add to previous draw Performed By: #### 0 0071, 57074, 46589 #### [facility] [address] [place] [address], [facility] RBC (Bld) [#/Vol] 3.40 10*6/uL Low 3.80-5.00 [facility] Comment on above: Order Comment: No: D o not add to previous draw Performed By: #### 0 0071, 49716, 70016 #### [facility] [address] [place] [address], [facility] WBC (Bld) [#/Vol] 7.08 10*3/uL Normal 4.00-10.60 [facility] Comment on above: Order Comment: No: D o not add to previous draw Performed By: #### 0 0071, 23157, 62591 #### [facility] [address] [place] [address], [place] LIVER BATTERYon 10-11-2019 Albumin [Mass/Vol] 4.0 g/dL Normal 3.5-5.7 [facility] Comment on above: Performed By: #### 0 0071, 34240, 85880 #### [facility] [address] [address], [place] ALKALINE PHOSPH 76 IU/L Normal 34-104 [facility] Comment on above: Performed By: #### 0 0071, 07899, 24696 #### [facility] [address] [place] [address], [place] ALT [Catalytic activity/Vol] 17 U/L Normal 7-52 [facility] Comment on above: Performed By: #### 0 0071, 10832, 25014 #### [facility] [address] [place] [address], [place] AST [Catalytic activity/Vol] 15 U/L Normal 13-39 [facility] Comment on above: Performed By: #### 0 0071, 37376, 25021 #### [facility] [address] [place] [address], [place] Bilirubin [Mass/Vol] 0.4 mg/dL Normal 0.3-1.0 [facility] Comment on above: Performed By: #### 0 0071, 00269, 26709 #### [facility] [address] [place] [address], [place] Bilirubin.direct [Mass/Vol] 0.1 mg/dL Normal 0.0-0.2 [facility] Comment on above: Performed By: #### 0 0071, 34468, 96792 #### [facility] [address] [address], [place] Protein [Mass/Vol] 6.4 g/dL Normal 6.0-8.3 [facility] Comment on above: Performed By: #### 0 0071, 04440, 05458 #### [facility] [address] [place] [address], [place] MAGNESIUM BLOODon 10-11-2019 Magnesium [Mass/Vol] 2.2 mg/dL Normal 1.9-2.7 [facility] Comment on above: Order Comment: No: D o not add to previous draw Performed By: #### 0 0071, , 29508 #### [facility] [address] [place] [address], [place] POC GLUCOSE LABon 10-11-2019 Glucose [Mass/Vol] 127 mg/dL High 70-100 [facility] Comment on above: Performed By: #### 0 0071, 64731, 66982 #### [facility] [address] [place] [address], [place] Glucose [Mass/Vol] 203 mg/dL High 70-100 [facility] Comment on above: Performed By: #### 0 0071, 82219, 01470 #### [facility] [address] [place] [address], [place] Glucose [Mass/Vol] 242 mg/dL High 70-100 [facility] Comment on above: Performed By: #### 0 0071, 00862, 88138 #### [facility] [address] [place] [address], [place] Glucose [Mass/Vol] 121 mg/dL High 70-100 [facility] Comment on above: Performed By: #### 0 0071, 84841, 41075 #### [address] LIVER 10-11-2019 LIVER [facility] Department of Radiology [address] [place] [id number] == Patient Name: CINTHYA WILSON : 1945 Sex: F Age: Race: White Pt. Location: [id number] Patient Status: I Ordered Date: 10/10/2019 11:35:00 [...] reports Electronically signed: Donal Sweeney. Transcribed by: [email or web address], User Resident: JAKOB CURIEL Electronically Signed by: DONAL SWEENEY @ 10/11/2019 11:04 AM I personally read this/these film(s) with this resident Normal [facility] Comment on above: Order Comment: No: D o not add to previous draw BASIC METABOLIC PANELon 09-12 Calcium [Mass/Vol] 9.0 mg/dL Normal 8.6-10.3 [facility] Comment on above: Order Comment: No: D o not add to previous draw Performed By: #### 0 0071, 04849, 00760 #### [facility] [address] [place] [address], [place] Chloride [Moles/Vol] 100 mmol/L Normal 98-107 [facility] Comment on above: Order Comment: No: D o not add to previous draw Performed By: #### 0 0071, 28364, 53348 #### [facility] [address] [place] [address], [place] CO2 [Moles/Vol] 24 mmol/L Normal 21-31 [facility] Comment on above: Order Comment: No: D o not add to previous draw Performed By: #### 0 0071, 93256, 02123 #### [facility] [address] [place] [address], [place] Creatinine [Mass/Vol] 3.14 mg/dL High 0.60-1.20 [facility] Comment on above: Order Comment: No: D o not add to previous draw Performed By: #### 0 0071, 00265, 30096 #### [facility] [address] [place] [address], [place] GFR/1.73 sq M predicted among blacks MDRD (S/P/Bld) [Vol rate/Area] 18 ml/min/1.73sq m Abnormal >60 [facility] Comment on above: Order Comment: No: D o not add to previous draw Result Comment: Calc ulation may not be valid for patients over 70 years Performed By: #### 0 0071, 70983, 31323 #### [facility] [address] [place] [address], [place] GFR/1.73 sq M predicted among non-blacks MDRD (S/P/Bld) [Vol rate/Area] 15 ml/min/1.73sq m Abnormal >60 [facility] Comment on above: Order Comment: No: D o not add to previous draw Result Comment: Calc ulation may not be valid for patients over 70 years Performed By: #### 0 0071, 82041, 27895 #### [facility] [address] [place] [address], [place] Glucose [Mass/Vol] 136 mg/dL High 70-100 [facility] Comment on above: Order Comment: No: D o not add to previous draw Performed By: #### 0 0071, 97306, 38266 #### [facility] [address] [place] [address], [place] Potassium [Moles/Vol] 3.7 mmol/L Normal 3.5-5.1 [facility] Comment on above: Order Comment: No: D o not add to previous draw Performed By: #### 0 0071, 55972, 72219 #### [facility] [address] [place] [address], [place] Sodium [Moles/Vol] 135 mmol/L Low 136-145 [facility] Comment on above: Order Comment: No: D o not add to previous draw Performed By: #### 0 0071, 01190, 39577 #### [facility] [address] [place] [address], [place] Urea nitrogen [Mass/Vol] 74 mg/dL High 7-25 [facility] Comment on above: Order Comment: No: D o not add to previous draw Performed By: #### 0 0071, 24081, 99935 #### [facility] [address] [address], [facility] CBC COMPLETE BLOOD COUNTon 10-10-2019 Erythrocyte distribution width (RBC) [Ratio] 14.5 % Normal 11.5-15.0 [facility] Comment on above: Order Comment: No: D o not add to previous draw Performed By: #### 0 0071, 78489, 25404 #### [facility] [address] [place] [address], [facility] Hematocrit (Bld) [Volume fraction] 29.8 % Low 36.0-45.0 [facility] Comment on above: Order Comment: No: D o not add to previous draw Performed By: #### 0 0071, , 20177 #### [facility] [address] [place] [address], [facility] Hemoglobin (Bld) [Mass/Vol] 9.7 g/dL Low 12.0-15.0 [facility] Comment on above: Order Comment: No: D o not add to previous draw Performed By: #### 0 0071, , 62545 #### [facility] [address] [place] [address], [facility] MCH (RBC) [Entitic mass] 29.5 pg Normal 27.0-33.0 [facility] Comment on above: Order Comment: No: D o not add to previous draw Performed By: #### 0 0071, , 79442 #### [facility] [address] [place] [address], [facility] MCHC (RBC) [Mass/Vol] 32.6 g/dL Normal 32.0-35.0 [facility] Comment on above: Order Comment: No: D o not add to previous draw Performed By: #### 0 0071, 94604, 78589 #### [facility] [address] [place] [address], [place] MCV (RBC) [Entitic vol] 90.6 fL Normal 82.0-98.0 [facility] Comment on above: Order Comment: No: D o not add to previous draw Performed By: #### 0 0071, 31274, 51376 #### [facility] [address] [address], [facility] Nucleated RBC/100 WBC (Bld) [Ratio] 0 % Normal 0-0 [facility] Comment on above: Order Comment: No: D o not add to previous draw Performed By: #### 0 0071, 32275, 94463 #### [facility] [address] [place] [address], [place] PLAT CNT 177 10*3/uL Normal 150-400 [facility] Comment on above: Order Comment: No: D o not add to previous draw Performed By: #### 0 0071, 92364, 92909 #### [facility] [address] [place] [address], [facility] RBC (Bld) [#/Vol] 3.29 10*6/uL Low 3.80-5.00 [facility] Comment on above: Order Comment: No: D o not add to previous draw Performed By: #### 0 0071, 94558, 14181 #### [facility] [address] [place] [address], [facility] WBC (Bld) [#/Vol] 6.93 10*3/uL Normal 4.00-10.60 [facility] Comment on above: Order Comment: No: D o not add to previous draw Performed By: #### 0 0071, 76279, 20199 #### [facility] [address] [place] [address], [place] MAGNESIUM BLOODon 10-10-2019 Magnesium [Mass/Vol] 2.2 mg/dL Normal 1.9-2.7 [facility] Comment on above: Order Comment: No: D o not add to previous draw Performed By: #### 0 0071, 48092, 22073 #### [facility] [address] [place] [address], [place] POC GLUCOSE LABon 10-10-2019 Glucose [Mass/Vol] 134 mg/dL High 70-100 [facility] Comment on above: Performed By: #### 0 0071, 45491, 35020 #### [facility] [address] [place] [address], [place] Glucose [Mass/Vol] 177 mg/dL High 70-100 [facility] Comment on above: Performed By: #### 0 0071, 02865, 98763 #### [facility] [address] [place] [address], [place] Glucose [Mass/Vol] 254 mg/dL High 70-100 [facility] Comment on above: Performed By: #### 0 0071, 48835, 50451 #### [facility] [address] [address], [place] BASIC METABOLIC PANELon 09-11 Calcium [Mass/Vol] 9.5 mg/dL Normal 8.6-10.3 [facility] Comment on above: Order Comment: No: D o not add to previous draw Performed By: #### 0 0071, 54041, 00504 #### [facility] [address] [address], [place] Chloride [Moles/Vol] 100 mmol/L Normal 98-107 [facility] Comment on above: Order Comment: No: D o not add to previous draw Performed By: #### 0 0071, 75500, 64199 #### [facility] [address] [address], [place] CO2 [Moles/Vol] 25 mmol/L Normal 21-31 [facility] Comment on above: Order Comment: No: D o not add to previous draw Performed By: #### 0 0071, 92869, 78473 #### [facility] [address] [address], [place] Creatinine [Mass/Vol] 2.94 mg/dL High 0.60-1.20 [facility] Comment on above: Order Comment: No: D o not add to previous draw Performed By: #### 0 0071, 38441, 04819 #### [facility] [address] [place] [address], [place] GFR/1.73 sq M predicted among blacks MDRD (S/P/Bld) [Vol rate/Area] 19 ml/min/1.73sq m Abnormal >60 [facility] Comment on above: Order Comment: No: D o not add to previous draw Result Comment: Calc ulation may not be valid for patients over 70 years Performed By: #### 0 0071, 09329, 22597 #### [facility] [address] [place] [address], [place] GFR/1.73 sq M predicted among non-blacks MDRD (S/P/Bld) [Vol rate/Area] 16 ml/min/1.73sq m Abnormal >60 [facility] Comment on above: Order Comment: No: D o not add to previous draw Result Comment: Calc ulation may not be valid for patients over 70 years Performed By: #### 0 0071, 71197, 76937 #### [facility] [address] [place] [address], [place] Glucose [Mass/Vol] 147 mg/dL High 70-100 [facility] Comment on above: Order Comment: No: D o not add to previous draw Performed By: #### 0 0071, 02579, 49766 #### [facility] [facility] [address] [place] [address], [place] Potassium [Moles/Vol] 3.8 mmol/L Normal 3.5-5.1 [facility] Comment on above: Order Comment: No: D o not add to previous draw Performed By: #### 0 0071, 75564, 15262 #### [facility] [address] [place] [address], [place] Sodium [Moles/Vol] 136 mmol/L Normal 136-145 [facility] Comment on above: Order Comment: No: D o not add to previous draw Performed By: #### 0 0071, 14931, 85420 #### [facility] [address] [facility]. [address] Urea nitrogen [Mass/Vol] 66 mg/dL High 7-25 [facility] Comment on above: Order Comment: No: D o not add to previous draw Performed By: #### 0 0071, 79478, 31850 #### [facility] [address] CBC W/DIFFon 10-09-2019 ABS BASOPHILS 0.0 10*3/uL Normal 0.0-0.2 [facility] Comment on above: Order Comment: No: D o not add to previous draw Performed By: #### 0 0071, 15958, 23797 #### [facility] [address] [facility]. [address] ABS IMM GRANS 0.0 10*3/uL Normal 0.0-0.2 [facility] Comment on above: Order Comment: No: D o not add to previous draw Performed By: #### 0 0071, 33203, 74939 #### [facility] [address] ABS NEUTROPHILS 4.3 10*3/uL Normal 1.6-7.6 [facility] Comment on above: Order Comment: No: D o not add to previous draw Performed By: #### 0 0071, 53789, 93380 #### [facility] [address] [place] [address], [facility] Basophils/100 WBC (Bld) 0.6 % Normal 0.0-1.0 T abimael [facility] Comment on above: Order Comment: No: D o not add to previous draw Performed By: #### 0 0071, , 84665 #### [facility] [address] Eosinophils (Bld) [#/Vol] 0.6 10*3/uL High 0.0-0.5 [facility] Comment on above: Order Comment: No: D o not add to previous draw Performed By: #### 0 0071, 80935, 24044 #### [facility] [address] [facility] [place] [address], [facility] Eosinophils/100 WBC (Bld) 7.7 % High 0.0-6.0 [facility] Comment on above: Order Comment: No: D o not add to previous draw Performed By: #### 0 0071, 86602, 35969 #### [facility] [address] Erythrocyte distribution width (RBC) [Ratio] 14.4 % Normal 11.5-15.0 [facility] Comment on above: Order Comment: No: D o not add to previous draw Performed By: #### 0 0071, 22751, 97358 #### [facility] [address] Hematocrit (Bld) [Volume fraction] 32.7 % Low 36.0-45.0 [facility] Comment on above: Order Comment: No: D o not add to previous draw Performed By: #### 0 0071, 91571, 55291 #### [facility] [address] [facility] [address], [facility] Hemoglobin (Bld) [Mass/Vol] 10.5 g/dL Low 12.0-15.0 [facility] Comment on above: Order Comment: No: D o not add to previous draw Performed By: #### 0 0071, 92338, 18022 #### [facility] [address] [place] [address], [facility] IMMATURE GRANS 0.4 % Normal 0.0-1.0 [facility] Comment on above: Order Comment: No: D o not add to previous draw Performed By: #### 0 0071, 11039, 88918 #### [facility] [address] [place] [address], [facility] Lymphocytes (Bld) [#/Vol] 1.3 10*3/uL Normal 1.2-4.0 [facility] Comment on above: Order Comment: No: D o not add to previous draw Performed By: #### 0 0071, 60028, 82838 #### [facility] [address] [place] [address], [facility] Lymphocytes/100 WBC (Bld) 17.7 % Low 20.0-45.0 [facility] Comment on above: Order Comment: No: D o not add to previous draw Performed By: #### 0 0071, 87876, 00137 #### [facility] [address] [place] [address], [facility] MCH (RBC) [Entitic mass] 29.3 pg Normal 27.0-33.0 [facility] Comment on above: Order Comment: No: D o not add to previous draw Performed By: #### 0 0071, , 35697 #### [facility] [address] [place] [address], [facility] MCHC (RBC) [Mass/Vol] 32.1 g/dL Normal 32.0-35.0 [facility] Comment on above: Order Comment: No: D o not add to previous draw Performed By: #### 0 0071, 77898, 06006 #### [facility] [address] [place] [address], [place] MCV (RBC) [Entitic vol] 91.3 fL Normal 82.0-98.0 [facility] Comment on above: Order Comment: No: D o not add to previous draw Performed By: #### 0 0071, 09057, 62382 #### [facility] [address] [place] [address], [facility] Monocytes (Bld) [#/Vol] 1.1 10*3/uL High 0.1-1.0 [facility] Comment on above: Order Comment: No: D o not add to previous draw Performed By: #### 0 0071, 49998, 87119 #### [facility] [address] [place] [address], [facility] MONOS 15.0 % High 5.0-12.0 [facility] Comment on above: Order Comment: No: D o not add to previous draw Performed By: #### 0 0071, 86935, 82250 #### [facility] [address] [place] [address], [facility] Neutrophils/100 WBC (Bld) 58.6 % Normal 40.0-72.0 [facility] Comment on above: Order Comment: No: D o not add to previous draw Performed By: #### 0 0071, 10391, 23817 #### [facility] [address] [place] [address], [facility] Nucleated RBC/100 WBC (Bld) [Ratio] 0 % Normal 0-0 [facility] Comment on above: Order Comment: No: D o not add to previous draw Performed By: #### 0 0071, 71465, 96761 #### [facility] [address] [place] [address], [facility] PLAT CNT 191 10*3/uL Normal 150-400 [facility] Comment on above: Order Comment: No: D o not add to previous draw Performed By: #### 0 0071, 76986, 87562 #### [facility] [address] [place] [address], [place] RBC (Bld) [#/Vol] 3.58 10*6/uL Low 3.80-5.00 [facility] Comment on above: Order Comment: No: D o not add to previous draw Performed By: #### 0 0071, 21400, 22880 #### [facility] [address] [place] [address], [facility] WBC (Bld) [#/Vol] 7.27 10*3/uL Normal 4.00-10.60 [facility] Comment on above: Order Comment: No: D o not add to previous draw Performed By: #### 0 0071, 54452, 31939 #### [facility] [address] [place] [address], [facility] MAGNESIUM BLOODon 10-09-2019 Magnesium [Mass/Vol] 2.4 mg/dL Normal 1.9-2.7 [facility] Comment on above: Order Comment: No: D o not add to previous draw Performed By: #### 0 0071, 32147, 41391 #### [facility] [address] [place] [address], [facility] PHOSPHORUS BLOODon 0 Phosphate [Mass/Vol] 4.2 mg/dL Normal 2.5-5.0 [facility] Comment on above: Order Comment: No: D o not add to previous draw Performed By: #### 0 0071, 52813, 38474 #### [facility] [address] [place] [address], [facility] POC GLUCOSE LABon 10-09-2019 Glucose [Mass/Vol] 164 mg/dL High 70-100 [facility] Comment on above: Performed By: #### 0 0071, 03498, 94776 #### [facility] [address] [place] [address], [place] Glucose [Mass/Vol] 164 mg/dL High 70-100 [facility] Comment on above: Performed By: #### 0 0071, 40472, 21805 #### [facility] [address] [place] [address], [place] Glucose [Mass/Vol] 314 mg/dL High 70-100 [facility] Comment on above: Performed By: #### 0 0071, 09230, 45668 #### [facility] [address] *SARS-CoV-2 COVID-19on 10-07 [id number] Not Detected Normal Not Detected [facility] Comment on above: Order Comment: The A ptima SARS-CoV-2 assay is a nucleic acid amplification test intended for the qualitative detection of RNA from SARS-CoV-2 isolated and purified from nasopharyngeal (MATERIAL LOADER),oropharyngeal (OP), nasal swab, sputum, and bronchoalveolar lavage (BAL) specimens from patients with signs and symptoms of infection who are suspected of COVID-19. Results are for the identification of SARS-CoV-2 RNA. The SARS-CoV-2 RNA is generally detectable during the acute phase of infection. The Aptima SARS-CoV-2 Assay on the [employer] and [employer] Fusion system is intended for use by laboratory personnel specifically instructed and trained in the operation of the [facility] and [employer] Fusion system. The Aptima SARS-CoV-2 assay is [...] information. Performed By: #### 3 1792 #### [facility] [address] BASIC METABOLIC PANELon 09-11 Calcium [Mass/Vol] 9.5 mg/dL Normal 8.6-10.3 [facility] Comment on above: Order Comment: No: D o not add to previous draw Performed By: #### 0 0071, 73096, 09521 #### [facility] [address] [place] [address], [facility] Chloride [Moles/Vol] 100 mmol/L Normal 98-107 [facility] Comment on above: Order Comment: No: D o not add to previous draw Performed By: #### 0 0071, 83694, 90415 #### [facility] [address] [place] [address], [place] CO2 [Moles/Vol] 26 mmol/L Normal 21-31 [facility] Comment on above: Order Comment: No: D o not add to previous draw Performed By: #### 0 0071, 53694, 42650 #### [facility] [address] [place] [address], [place] Creatinine [Mass/Vol] 2.70 mg/dL High 0.60-1.20 [facility] Comment on above: Order Comment: No: D o not add to previous draw Performed By: #### 0 0071, 99931, 28841 #### [facility] [address] [place] [address], [facility] GFR/1.73 sq M predicted among blacks MDRD (S/P/Bld) [Vol rate/Area] 21 ml/min/1.73sq m Abnormal >60 [facility] Comment on above: Order Comment: No: D o not add to previous draw Result Comment: Calc ulation may not be valid for patients over 70 years Performed By: #### 0 0071, 39249, 33070 #### [facility] [address] [place] [address], [facility] GFR/1.73 sq M predicted among non-blacks MDRD (S/P/Bld) [Vol rate/Area] 17 ml/min/1.73sq m Abnormal >60 [facility] Comment on above: Order Comment: No: D o not add to previous draw Result Comment: Calc ulation may not be valid for patients over 70 years Performed By: #### 0 0071, 98458, 05466 #### [facility] [address] [place] [address], [place] Glucose [Mass/Vol] 135 mg/dL High 70-100 [facility] Comment on above: Order Comment: No: D o not add to previous draw Performed By: #### 0 0071, 40038, 92461 #### [facility] [address] [place] [address], [facility] Potassium [Moles/Vol] 3.5 mmol/L Normal 3.5-5.1 [facility] Comment on above: Order Comment: No: D o not add to previous draw Performed By: #### 0 0071, 99168, 34005 #### [facility] [address] [place] [id number], [facility] Sodium [Moles/Vol] 135 mmol/L Low 136-145 [facility] Comment on above: Order Comment: No: D o not add to previous draw Performed By: #### 0 0071, 31208, 15571 #### [facility] [address] [place] [address], [facility] Urea nitrogen [Mass/Vol] 56 mg/dL High 7-25 [facility] Comment on above: Order Comment: No: D o not add to previous draw Performed By: #### 0 0071, 17952, 60005 #### [facility] [address] [place] [address], [facility] CBC W/DIFFon 10-08-2019 ABS BASOPHILS 0.1 10*3/uL Normal 0.0-0.2 [facility] Comment on above: Performed By: #### 5 102 #### [facility] [address] [place] [address], [facility] ABS IMM GRANS 0.0 10*3/uL Normal 0.0-0.2 [facility] Comment on above: Performed By: #### 5 010 #### [facility] [address] [place] [address], [facility] ABS NEUTROPHILS 4.7 10*3/uL Normal 1.6-7.6 [facility] Comment on above: Performed By: #### 5 102 #### [facility] [address] [place] [address], [facility] Basophils/100 WBC (Bld) 0.6 % Normal 0.0-1.0 T [facility] Comment on above: Performed By: #### 5 0103 #### [facility] [address] [facility] Eosinophils (Bld) [#/Vol] 0.7 10*3/uL High 0.0-0.5 [facility] Comment on above: Performed By: #### 5 0103 #### [facility] [address] [facility]. [address] Eosinophils/100 WBC (Bld) 8.4 % High 0.0-6.0 [facility] Comment on above: Performed By: #### 5 3 #### [facility] [address] Erythrocyte distribution width (RBC) [Ratio] 14.3 % Normal 11.5-15.0 [facility] Comment on above: Performed By: #### 5 3 #### [facility] [address] Hematocrit (Bld) [Volume fraction] 31.4 % Low 36.0-45.0 [facility] Comment on above: Performed By: #### 5 3 #### [facility] [address] [facility] Hemoglobin (Bld) [Mass/Vol] 10.1 g/dL Low 12.0-15.0 [facility] Comment on above: Performed By: #### 5 3 #### [facility] [address] IMMATURE GRANS 0.5 % Normal 0.0-1.0 [facility] Comment on above: Performed By: #### 3 #### [facility] [address] Lymphocytes (Bld) [#/Vol] 1.3 10*3/uL Normal 1.2-4.0 [facility] Comment on above: Performed By: #### 5 0103 #### [facility] [address] [facility] [place] [place] [address], [facility] Lymphocytes/100 WBC (Bld) 17.0 % Low 20.0-45.0 [facility] Comment on above: Performed By: #### 5 3 #### [facility] [address] [facility] [place] [place] [address], [facility] MCH (RBC) [Entitic mass] 29.5 pg Normal 27.0-33.0 [facility] Comment on above: Performed By: #### 5 3 #### [facility] [address] [facility] [place] [address], [facility] MCHC (RBC) [Mass/Vol] 32.2 g/dL Normal 32.0-35.0 [facility] Comment on above: Performed By: #### 5 3 #### [facility] [address] [facility] [place] [address], [facility] MCV (RBC) [Entitic vol] 91.8 fL Normal 82.0-98.0 T [facility] Comment on above: Performed By: #### 5 102 #### [facility] [address] [facility] [place] [address], [facility] Monocytes (Bld) [#/Vol] 1.1 10*3/uL High 0.1-1.0 [facility] Comment on above: Performed By: #### 5 3 #### [facility] [address] [facility] [place] [address], [facility] MONOS 13.4 % High 5.0-12.0 [facility] Comment on above: Performed By: #### 5 3 #### [facility] [address] [place] [address], [facility] Neutrophils/100 WBC (Bld) 60.1 % Normal 40.0-72.0 [facility] Comment on above: Performed By: #### 102 #### [facility] [address] [address], [facility] Nucleated RBC/100 WBC (Bld) [Ratio] 0 % Normal 0-0 [facility] Comment on above: Performed By: #### 5 0103 #### [facility] [address] [address], [facility] PLAT CNT 189 10*3/uL Normal 150-400 [facility] Comment on above: Performed By: #### 5 0103 #### [facility] [address] [facility] [place] [place] [address], [facility] RBC (Bld) [#/Vol] 3.42 10*6/uL Low 3.80-5.00 [facility] Comment on above: Performed By: #### 5 0103 #### [facility] [address] [place] [address], [facility] WBC (Bld) [#/Vol] 7.86 10*3/uL Normal 4.00-10.60 [facility] Comment on above: Performed By: #### 5 0103 #### [facility] [address] [facility] [place] [address], [facility] CREATININE URINE RANDOMon Creatinine [Mass/Vol] 79.0 mg/dL Normal [facility] Comment on above: Order Comment: No: D o not add to previous draw Result Comment: Ther e are no established reference values for random urine specimens Performed By: #### 2 5706, 63595 #### [facility] [address] [place] [address], [facility] MAGNESIUM BLOODon 10-08-2019 Magnesium [Mass/Vol] 1.7 mg/dL Low 1.9-2.7 [facility] Comment on above: Order Comment: No: D o not add to previous draw Performed By: #### 0 0071, 68402, 52913 #### [facility] [address] [address], [facility] PHOSPHORUS BLOODon 0 Phosphate [Mass/Vol] 3.8 mg/dL Normal 2.5-5.0 [facility] Comment on above: Order Comment: No: D o not add to previous draw Performed By: #### 0 0071, 80453, 87546 #### [facility] [address] [place] [address], [place] POC GLUCOSE LABon 10-08-2019 Glucose [Mass/Vol] 191 mg/dL High 70-100 [facility] Comment on above: Performed By: #### 8 5499 #### [facility] [address] [place] [address], [place] Glucose [Mass/Vol] 197 mg/dL High 70-100 [facility] Comment on above: Performed By: #### 8 5499 #### [facility] [address] [place] [address], [place] Glucose [Mass/Vol] 296 mg/dL High 70-100 [facility] Comment on above: Performed By: #### 8 5499 #### [facility] [address] [place] [address], [place] UREA NITROGEN URon 0 Urea nitrogen [Mass/Vol] 606 mg/dL Normal [facility] Comment on above: Order Comment: No: D o not add to previous draw Result Comment: Ther e are no established reference values for random urine specimens Performed By: #### 0 0071, 76050, 66360 #### [facility] [address] [place] [address], [place] URINALYSIS REFLEXon 10-08-19 20 Appearance (U) CLEAR Normal CLEAR [facility] Comment on above: Order Comment: No: D o not add to previous draw Performed By: #### 0 0071, 84228, 39325 #### [facility] [address] [place] [address], [place] Bilirubin [Mass/Vol] Negative Normal NEGATIVE [facility] Comment on above: Order Comment: No: D o not add to previous draw Performed By: #### 0 0071, 34901, 30788 #### [facility] [address] [place] [address], [place] BLOOD Negative Normal NEGATIVE [facility] Comment on above: Order Comment: No: D o not add to previous draw Performed By: #### 0 0071, 58684, 64838 #### [facility] [address] [address], [place] Color (U) YELLOW Normal YELLOW [facility] Comment on above: Order Comment: No: D o not add to previous draw Performed By: #### 0 0071, 79298, 31778 #### [facility] [address] [place] [address], [place] EPIS NONE SEEN Normal FEW,OCC,NONE SEEN [facility] Comment on above: Order Comment: No: D o not add to previous draw Performed By: #### 0 0071, 47172, 33959 #### [facility] [address] [place] [address], [place] Glucose [Mass/Vol] 50 mg/dL Abnormal NEGATIVE [facility] Comment on above: Order Comment: No: D o not add to previous draw Performed By: #### 0 0071, 87353, 17403 #### [facility] [address] [address], [place] KETONE Negative Normal NEGATIVE [facility] Comment on above: Order Comment: No: D o not add to previous draw Performed By: #### 0 0071, 43013, 48877 #### [facility] [address] [place] [address], [place] LEUK TOD Negative Normal NEGATIVE [facility] Comment on above: Order Comment: No: D o not add to previous draw Performed By: #### 0 0071, 89142, 80818 #### [facility] [address] [address], [facility] Nitrite Ql (U) Negative Normal NEGATIVE [facility] Comment on above: Order Comment: No: D o not add to previous draw Performed By: #### 0 0071, 49793, 73161 #### [facility] [address] [place] [address], [facility] pH (Bld) 6.0 Normal 5.0-8.0 [facility] Comment on above: Order Comment: No: D o not add to previous draw Performed By: #### 0 0071, 84729, 00113 #### [facility] [address] [place] [address], [facility] Protein (U) [Mass/Vol] 100 mg/dL Abnormal NEGATIVE Th e [facility] Comment on above: Order Comment: No: D o not add to previous draw Performed By: #### 0 0071, 70850, 67161 #### [facility] [address] [address], [facility] RBC (U) [#/Vol] 0-2 Abnormal NONE SEEN [facility] Comment on above: Order Comment: No: D o not add to previous draw Performed By: #### 0 0071, 18460, 63909 #### [facility] [address] [facility] [place] [address], [facility] SPEC GRAV 1.013 Low 1.015-1.020 [facility] Comment on above: Order Comment: No: D o not add to previous draw Performed By: #### 0 0071, 55889, 75454 #### [facility] [address] [place] [address], [facility] WBC UA 0-2 Abnormal NONE SEEN [facility] Comment on above: Order Comment: No: D o not add to previous draw Performed By: #### 0 0071, 94139, 10191 #### [facility] [address] [place] [address], [facility] US RENALon 10-08-2019 US RENAL [facility] Department of Radiology [address] [place] [id number] == Patient Name: CINTHYA WILSON : 1945 Sex: F Age: Race: White Pt. Location: [id number] Patient Status: I Ordered Date: 10/08/2019 5:15:00 [...] calculi. Electronically signed: Yamileth Orellana. Transcribed by: [email or web address], User Resident: Electronically Signed by: YAMILETH ORELLANA @ 10/08/2019 11:18 AM Normal [facility] Comment on above: Order Comment: [place] nephrosis Vital Signs Date Time Vital Sign Value Performing Clinician Facility 10-14-2023 09:08-0400 Body height 162.56 cm II Lily Del Real Work Phone: [facility] 10-14-2023 09:08-0400 Body mass index (BMI) [Ratio] 23 kg/m2 II Lily Del Real Work Phone: [facility] 10-14-2023 09:08-0400 Body weight 60.78 kg II Lily Del Real Work Phone: [facility] 10-03-2023 15:00-0400 Hourly Rounding Armando Paster [facility] 10-03-2023 15:00-0400 Promise to Return Armando Paster [facility] 10-03-2023 14:00-0400 Hourly Rounding Armando Paster [facility] 10-03-2023 14:00-0400 Promise to Return Armando Paster [facility] 10-03-2023 13:08-0400 Heart rate 82 /min Armando Paster [facility] 10-03-2023 13:08-0400 SaO2% (BldA) [Mass fraction] 95 % Armando Paster [facility] 10-03-2023 13:08-0400 Diastolic blood pressure 52 mm[Hg] Armando Paster [facility] 10-03-2023 13:08-0400 Mean blood pressure 69 mm[Hg] [facility] [facility] 10-03-2023 13:08-0400 Systolic blood pressure 104 mm[Hg] Armando Paster [facility] 10-03-2023 13:07-0400 Body temperature 97.88 [degF] Armando Paster [facility] 10-03-2023 13:03-0400 Hourly Rounding Armando Paster [facility] 10-03-2023 13:03-0400 Promise to Return Armando Paster [facility] 10-03-2023 08:33-0400 SaO2% (BldA) [Mass fraction] 95 % Armando Paster [facility] 10-03-2023 07:00-0400 Body temperature 97.52 [degF] Armando Paster [facility] 10-03-2023 07:00-0400 Diastolic blood pressure 60 mm[Hg] Armando Paster [facility] 10-03-2023 07:00-0400 Heart rate 67 /min Armando Paster [facility] 10-03-2023 07:00-0400 Systolic blood pressure 135 mm[Hg] Armando Paster [facility] 10-03-2023 00:48-0400 Body temperature 97.34 [degF] Armando Paster [facility] 10-03-2023 00:48-0400 Diastolic blood pressure 57 mm[Hg] Armando Paster [facility] 10-03-2023 00:48-0400 Heart rate 68 /min Armando Paster [facility] 10-03-2023 00:48-0400 Respiratory rate 16 /min Armando Paster [facility] 10-03-2023 00:48-0400 Systolic blood pressure 136 mm[Hg] Armando Paster [facility] 10-02-2023 20:12-0400 Blood Pressure Location Armando Paster [facility] 10-02-2023 20:12-0400 BP/Pulse Patient Position Armando Paster [facility] 10-02-2023 20:12-0400 Mean blood pressure 80 mm[Hg] Armando Paster [facility] 10-02-2023 20:11-0400 Body temperature 97.7 [degF] Armando Paster [facility] 10-02-2023 17:00-0400 Body temperature 98.42 [degF] Armando Paster [facility] 10-02-2023 12:37-0400 Mean blood pressure 68 mm[Hg] Armando Paster [facility] 10-02-2023 11:38-0400 Body temperature 97.7 [degF] Armando Paster [facility] 10-02-2023 11:38-0400 Mean blood pressure 74 mm[Hg] Armando Paster [facility] 10-02-2023 06:00-0400 Mean blood pressure 79 mm[Hg] Armando Paster [facility] 10-02-2023 01:00-0400 Mean blood pressure 72 mm[Hg] Armando Paster [facility] 10-01-2023 20:56-0400 gluc 293 mg/dL Armando Paster [facility] 10-01-2023 13:23-0400 Body temperature 98.06 [degF] Armando Paster [facility] 10-01-2023 13:23-0400 Respiratory rate 22 /min Armando Paster [facility] 10-01-2023 12:58-0400 Body temperature 98.06 [degF] Armando Paster [facility] 10-01-2023 11:40-0400 Respiratory rate 16 /min Armando Paster [facility] 09-30-2023 21:13-0400 gluc 186 mg/dL Armando Jcr [facility] 09-29-2023 16:54-0400 Heart rate 65 /min Armando Jcr [facility] 09-29-2023 12:51-0400 Heart rate 91 /min Armando Jcr [facility] 09-22-2023 15:22-0400 Body temperature 97.8 [degF] II Lily Del Real Work Phone: [facility] 09-22-2023 15:22-0400 Diastolic blood pressure 50 mm[Hg] II Lily Del Real Work Phone: [facility] 09-22-2023 15:22-0400 Heart rate 68 /min II Lily Del Real Work Phone: [facility] 09-22-2023 15:22-0400 Respiratory rate 16 /min II Lily Del Real Work Phone: [facility] 09-22-2023 15:22-0400 SaO2% (BldA) [Mass fraction] 95 % II Lily Del Real Work Phone: [facility] 09-22-2023 15:22-0400 Systolic blood pressure 99 mm[Hg] II Lily Del Real Work Phone: [facility] 09-22-2023 14:30-0400 Diastolic blood pressure 29 mm[Hg] II Lily Del Real Work Phone: [facility] 09-22-2023 14:30-0400 Heart rate 62 /min II Liyl Del Real Work Phone: [facility] 09-22-2023 14:30-0400 Systolic blood pressure 90 mm[Hg] II Lily Del Real Work Phone: [facility] 09-22-2023 10:50-0400 Body temperature 98.3 [degF] II Lily Del Real Work Phone: [facility] 09-22-2023 10:50-0400 Inhaled oxygen flow rate 3 L/min II Lily Del Real Work Phone: [facility] 09-22-2023 10:50-0400 Respiratory rate 18 /min II Lily Del Real Work Phone: [facility] 09-22-2023 10:50-0400 SaO2% (BldA) [Mass fraction] 99 % II Lily Del Real Work Phone: [facility] 09-22-2023 06:19-0400 Body height 162.56 cm II Lily Del Real Work Phone: [facility] 09-22-2023 06:19-0400 Body weight 66 kg II Lily Del Real Work Phone: [facility] 08-01-2023 18:40-0400 Diastolic blood pressure 56 mm[Hg] II Lily Del Real Work Phone: [facility] 08-01-2023 18:40-0400 Heart rate 71 /min II Lily Del Real Work Phone: [facility] 08-01-2023 18:40-0400 Inhaled oxygen flow rate 2 L/min II Lily Del Real Work Phone: [facility] 08-01-2023 18:40-0400 Respiratory rate 18 /min II Lily Del Real Work Phone: [facility] 08-01-2023 18:40-0400 SaO2% (BldA) [Mass fraction] 98 % II Lily Del Real Work Phone: [facility] 08-01-2023 18:40-0400 Systolic blood pressure 111 mm[Hg] II Lily Del Real Work Phone: [facility] 08-01-2023 15:22-0400 Body height 162.56 cm II Lily Del Real Work Phone: [facility] 08-01-2023 15:22-0400 Body temperature 98.7 [degF] II Lily Del Real Work Phone: [facility] 08-01-2023 15:22-0400 Body weight 61 kg II Lily Del Real Work Phone: [facility] 07-24-2023 11:10-0400 Body height 162.56 cm II Lily Del Real Work Phone: [facility] 07-22-2023 12:45-0400 Body temperature 97.5 [degF] II Lily Del Real Work Phone: [facility] 07-22-2023 12:45-0400 Diastolic blood pressure 70 mm[Hg] II Lily Del Real Work Phone: [facility] 07-22-2023 12:45-0400 Heart rate 72 /min II Lily Del Real Work Phone: [facility] 07-22-2023 12:45-0400 Inhaled oxygen flow rate 2 L/min II Lily Del Real Work Phone: [facility] 07-22-2023 12:45-0400 Respiratory rate 16 /min II Lily Del Real Work Phone: [facility] 07-22-2023 12:45-0400 SaO2% (BldA) [Mass fraction] 100 % II Lily Del Real Work Phone: [facility] 07-22-2023 12:45-0400 Systolic blood pressure 131 mm[Hg] II Lily Del Real Work Phone: [facility] 07-22-2023 11:35-0400 Body height 162.56 cm II Lily Del Real Work Phone: [facility] 07-22-2023 05:21-0400 Body weight 64.7 kg II Lily Del Real Work Phone: [facility] 07-08-2023 16:00-0400 Body temperature 99 [degF] MD Azar Palmer Jr Work Phone: [facility] 07-08-2023 16:00-0400 Diastolic blood pressure 65 mm[Hg] MD Azar Palmer Jr Work Phone: [facility] 07-08-2023 16:00-0400 Heart rate 74 /min MD Azar Palmer Jr Work Phone: [facility] 07-08-2023 16:00-0400 Inhaled oxygen flow rate 2 L/min MD Azar Palmer Jr Work Phone: [facility] 07-08-2023 16:00-0400 Respiratory rate 20 /min MD Azar Palmer Jr Work Phone: [facility] 07-08-2023 16:00-0400 SaO2% (BldA) [Mass fraction] 99 % MD Azar Palmer Jr Work Phone: [facility] 07-08-2023 16:00-0400 Systolic blood pressure 150 mm[Hg] MD Azar Palmer Jr Work Phone: [facility] 07-08-2023 14:14-0400 Body height 162.56 cm MD Azar Palmer Jr Work Phone: [facility] 07-08-2023 06:00-0400 Body weight 69.3 kg MD Azar Palmer Jr Work Phone: [facility] 07-04-2023 10:15-0400 Body mass index (BMI) [Ratio] 23.6 kg/m2 MD Azar Palmer Jr Work Phone: [facility] 06-30-2023 19:00-0400 Diastolic blood pressure 54 mm[Hg] PETER Del Real Work Phone: [facility] 06-30-2023 19:00-0400 Heart rate 72 /min PETER Dle Real Work Phone: [facility] 06-30-2023 19:00-0400 Inhaled oxygen flow rate 2 L/min PETER Del Real Work Phone: [facility] 06-30-2023 19:00-0400 Respiratory rate 20 /min II Lily Del Real Work Phone: [facility] 06-30-2023 19:00-0400 SaO2% (BldA) [Mass fraction] 97 % II Lily Del Real Work Phone: [facility] 06-30-2023 19:00-0400 Systolic blood pressure 106 mm[Hg] II Lily Del Real Work Phone: [facility] 06-30-2023 17:13-0400 Body temperature 97.9 [degF] II Lily Del Real Work Phone: [facility] 06-30-2023 12:32-0400 Body height 162.56 cm II Lily Del Real Work Phone: [facility] 06-30-2023 12:32-0400 Body weight 62.6 kg II Lily Del Real Work Phone: [facility] 06-12-2023 11:20-0400 Body height 162.56 cm II Lily Del Real Work Phone: [facility] 06-12-2023 11:20-0400 Body mass index (BMI) [Ratio] 22.3 kg/m2 II Lily Del Real Work Phone: [facility] 06-12-2023 11:20-0400 Body temperature 96.3 [degF] II Lily Del Real Work Phone: [facility] 06-12-2023 11:20-0400 Body weight 58.96 kg II Lily Del Real Work Phone: [facility] 06-12-2023 11:20-0400 Diastolic blood pressure 38 mm[Hg] II Lily Del Real Work Phone: [facility] 06-12-2023 11:20-0400 Heart rate 61 /min II Lily Del Real Work Phone: [facility] 06-12-2023 11:20-0400 Inhaled oxygen flow rate 3 L/min II Lily Del Real Work Phone: [facility] 06-12-2023 11:20-0400 SaO2% (BldA) [Mass fraction] 98 % II Lily Del Real Work Phone: [facility] 06-12-2023 11:20-0400 Systolic blood pressure 100 mm[Hg] II Lily Del Real Work Phone: [facility] 05-02-2023 21:51-0400 Diastolic blood pressure 63 mm[Hg] II Lily Del Real Work Phone: [facility] 05-02-2023 21:51-0400 Heart rate 80 /min II Lily Del Real Work Phone: [facility] 05-02-2023 21:51-0400 Respiratory rate 18 /min II Lily Del Real Work Phone: [facility] 05-02-2023 21:51-0400 SaO2% (BldA) [Mass fraction] 100 % II Lily Del Real Work Phone: [facility] 05-02-2023 21:51-0400 Systolic blood pressure 151 mm[Hg] II Lily Del Real Work Phone: [facility] 05-02-2023 19:15-0400 Body height 162.56 cm II Lily Del Real Work Phone: [facility] 05-02-2023 19:15-0400 Body temperature 97.5 [degF] II Lily Del Real Work Phone: [facility] 05-02-2023 19:15-0400 Body weight 62.3 kg II Lily Del Real Work Phone: [facility] 05-02-2023 19:15-0400 Inhaled oxygen flow rate 2 L/min II Lily Del Real Work Phone: [facility] 04-16-2023 06:23-0500 Diastolic blood pressure 61 mm[Hg] II Lily Del Real Work Phone: [facility] 04-16-2023 06:23-0500 Heart rate 83 /min II Lily Del Real Work Phone: [facility] 04-16-2023 06:23-0500 Respiratory rate 20 /min II Lily Del Real Work Phone: [facility] 04-16-2023 06:23-0500 SaO2% (BldA) [Mass fraction] 93 % II Lily Del Real Work Phone: [facility] 04-16-2023 06:23-0500 Systolic blood pressure 118 mm[Hg] II Lily Del Real Work Phone: [facility] 04-16-2023 03:58-0500 Body height 162.56 cm II Lily Del Real Work Phone: [facility] 04-16-2023 03:58-0500 Body weight 66.6 kg II Lily Del Real Work Phone: [facility] 04-05-2023 17:11-0500 Body temperature 98.1 [degF] II Lily Del Real Work Phone: [facility] 04-05-2023 17:11-0500 Diastolic blood pressure 64 mm[Hg] II Lily Del Real Work Phone: [facility] 04-05-2023 17:11-0500 Heart rate 67 /min II Lily Del Real Work Phone: [facility] 04-05-2023 17:11-0500 Inhaled oxygen flow rate 3 L/min II Lily Del Real Work Phone: [facility] 04-05-2023 17:11-0500 Respiratory rate 16 /min II Lily Del Real Work Phone: [facility] 04-05-2023 17:11-0500 SaO2% (BldA) [Mass fraction] 100 % II Lily Del Real Work Phone: [facility] 04-05-2023 17:11-0500 Systolic blood pressure 148 mm[Hg] II Lily Del Real Work Phone: [facility] 04-05-2023 06:00-0500 Body weight 64.1 kg II Lily Del Real Work Phone: [facility] 04-02-2023 14:34-0500 Body height 162.56 cm II Lily Del Real Work Phone: [facility] 04-01-2023 21:30-0500 Diastolic blood pressure 62 mm[Hg] II Lily Del Real Work Phone: [facility] 04-01-2023 21:30-0500 Heart rate 60 /min II Lily Del Real Work Phone: [facility] 04-01-2023 21:30-0500 Inhaled oxygen flow rate 3 L/min II Lily Del Real Work Phone: [facility] 04-01-2023 21:30-0500 Respiratory rate 16 /min II Lily Del Real Work Phone: [facility] 04-01-2023 21:30-0500 SaO2% (BldA) [Mass fraction] 100 % II Lily Del Real Work Phone: [facility] 04-01-2023 21:30-0500 Systolic blood pressure 126 mm[Hg] II Lily Del Real Work Phone: [facility] 04-01-2023 14:40-0500 Body height 162.56 cm II Lily Del Real Work Phone: [facility] 04-01-2023 14:40-0500 Body temperature 98.2 [degF] II Lily Del Real Work Phone: [facility] 04-01-2023 14:40-0500 Body weight 58.96 kg II Lily Del Real Work Phone: [facility] 03-07-2023 16:00-0500 Body temperature 97.6 [degF] II Lily Del Real Work Phone: [facility] 03-07-2023 16:00-0500 Diastolic blood pressure 61 mm[Hg] II Lily Del Real Work Phone: [facility] 03-07-2023 16:00-0500 Heart rate 69 /min II Lily Del Real Work Phone: [facility] 03-07-2023 16:00-0500 Inhaled oxygen flow rate 3 L/min II Lily Del Real Work Phone: [facility] 03-07-2023 16:00-0500 Respiratory rate 18 /min II Lily Del Real Work Phone: [facility] 03-07-2023 16:00-0500 SaO2% (BldA) [Mass fraction] 97 % II Lily Del Real Work Phone: [facility] 03-07-2023 16:00-0500 Systolic blood pressure 128 mm[Hg] II Lily Del Real Work Phone: [facility] 03-07-2023 06:00-0500 Body weight 60.6 kg II Lily Del Real Work Phone: [facility] 03-06-2023 13:52-0500 Body height 162.56 cm II Lily Del Real Work Phone: [facility] 03-05-2023 21:36-0500 Body temperature 97.1 [degF] II Lily Del Real Work Phone: [facility] 03-05-2023 21:36-0500 Diastolic blood pressure 59 mm[Hg] II Lily Del Real Work Phone: [facility] 03-05-2023 21:36-0500 Heart rate 81 /min II Lily Del Real Work Phone: [facility] 03-05-2023 21:36-0500 Inhaled oxygen flow rate 3 L/min II Lily Del Real Work Phone: [facility] 03-05-2023 21:36-0500 Respiratory rate 18 /min II Lily Del Real Work Phone: [facility] 03-05-2023 21:36-0500 SaO2% (BldA) [Mass fraction] 100 % II Lily Del Real Work Phone: [facility] 03-05-2023 21:36-0500 Systolic blood pressure 101 mm[Hg] II Lily Del Real Work Phone: [facility] 03-05-2023 17:06-0500 Body height 162.56 cm II Lily Del Real Work Phone: [facility] 03-05-2023 17:06-0500 Body weight 60 kg II Lily Del Real Work Phone: [facility] 01-02-2023 11:48-0500 Body temperature 98.4 [degF] II Lily Del Real Work Phone: [facility] 01-02-2023 11:48-0500 Diastolic blood pressure 65 mm[Hg] II Lily Del Real Work Phone: [facility] 01-02-2023 11:48-0500 Heart rate 58 /min II Lily Del Real Work Phone: [facility] 01-02-2023 11:48-0500 Inhaled oxygen flow rate 2 L/min II Lily Del Real Work Phone: [facility] 01-02-2023 11:48-0500 Respiratory rate 20 /min II Lily Del Real Work Phone: [facility] 01-02-2023 11:48-0500 SaO2% (BldA) [Mass fraction] 94 % II Lily Del Real Work Phone: [facility] 01-02-2023 11:48-0500 Systolic blood pressure 140 mm[Hg] II Lily Del Real Work Phone: [facility] 01-02-2023 06:00-0500 Body weight 60.6 kg II Lily Del Real Work Phone: [facility] 12-30-2022 16:15-0500 Body height 162.56 cm II Lily Del Real Work Phone: [facility] 12-30-2022 01:30-0500 Diastolic blood pressure 53 mm[Hg] II Lily Del Real Work Phone: [facility] 12-30-2022 01:30-0500 Heart rate 47 /min II Lily Del Real Work Phone: [facility] 12-30-2022 01:30-0500 Inhaled oxygen flow rate 3 L/min II Lily Del Real Work Phone: [facility] 12-30-2022 01:30-0500 SaO2% (BldA) [Mass fraction] 91 % II Lily Del Real Work Phone: [facility] 12-30-2022 01:30-0500 Systolic blood pressure 95 mm[Hg] II Lily Del Real Work Phone: [facility] 12-30-2022 00:46-0500 Body temperature 98.8 [degF] II Lily Del Real Work Phone: [facility] 12-29-2022 22:10-0500 Respiratory rate 20 /min II Lily Del Real Work Phone: [facility] 12-29-2022 21:54-0500 Body height 162.56 cm II Lily Del Real Work Phone: [facility] 12-29-2022 21:54-0500 Body weight 63.3 kg II Lily Del Real Work Phone: [facility] 12-16-2022 16:00-0500 Heart rate 72 /min II Lily Del Real Work Phone: [facility] 12-16-2022 16:00-0500 Inhaled oxygen flow rate 2 L/min II Lily Del Real Work Phone: [facility] 12-16-2022 16:00-0500 Respiratory rate 18 /min II Lily Del Real Work Phone: [facility] 12-16-2022 16:00-0500 SaO2% (BldA) [Mass fraction] 98 % II Lily Del Real Work Phone: [facility] 12-16-2022 15:38-0500 Body temperature 97.5 [degF] II Lily Del Real Work Phone: [facility] 12-16-2022 15:38-0500 Diastolic blood pressure 50 mm[Hg] II Lily Del Real Work Phone: [facility] 12-16-2022 15:38-0500 Systolic blood pressure 98 mm[Hg] II Lily Del Real Work Phone: [facility] 12-16-2022 06:00-0500 Body weight 64.6 kg II Lily Del Real Work Phone: [facility] 12-13-2022 20:21-0400 Body height 162.56 cm II Lily Del Real Work Phone: [facility] 12-09-2022 16:37-0400 Body temperature 98.1 [degF] II Lily Del Real Work Phone: [facility] 12-09-2022 16:37-0400 Diastolic blood pressure 63 mm[Hg] II Lily Del Real Work Phone: [facility] 12-09-2022 16:37-0400 Heart rate 76 /min II Lily Del Real Work Phone: [facility] 12-09-2022 16:37-0400 Inhaled oxygen flow rate 3 L/min II Lily Del Real Work Phone: [facility] 12-09-2022 16:37-0400 Respiratory rate 20 /min II Lily Del Real Work Phone: [facility] 12-09-2022 16:37-0400 SaO2% (BldA) [Mass fraction] 100 % II Lily Del Real Work Phone: [facility] 12-09-2022 16:37-0400 Systolic blood pressure 132 mm[Hg] II Lily Del Real Work Phone: [facility] 12-09-2022 06:00-0400 Body weight 61.2 kg II Lily Del Rela Work Phone: [facility] 12-06-2022 23:22-0400 Body height 162.56 cm II Lily Del Real Work Phone: [facility] 12-06-2022 22:30-0400 Diastolic blood pressure 53 mm[Hg] II Lily Del Real Work Phone: [facility] 12-06-2022 22:30-0400 Heart rate 80 /min II Lily Del Real Work Phone: [facility] 12-06-2022 22:30-0400 Respiratory rate 20 /min II Lily Del Real Work Phone: [facility] 12-06-2022 22:30-0400 SaO2% (BldA) [Mass fraction] 98 % II Lily Del Rael Work Phone: [facility] 12-06-2022 22:30-0400 Systolic blood pressure 103 mm[Hg] II Liyl Del Real Work Phone: [facility] 12-06-2022 21:26-0400 Inhaled oxygen flow rate 3 L/min II Lily Del Real Work Phone: [facility] 12-06-2022 18:33-0400 Body height 162.56 cm II Lily Del Real Work Phone: [facility] 12-06-2022 18:33-0400 Body weight 63.8 kg II Lily Del Real Work Phone: [facility] 12-06-2022 18:32-0400 Body temperature 97.3 [degF] II Lily Del Real Work Phone: [facility] 10-31-2022 16:00-0400 Inhaled oxygen flow rate 3 L/min II Lily Del Real Work Phone: [facility] 10-31-2022 15:51-0400 Diastolic blood pressure 62 mm[Hg] II Lily Del Real Work Phone: [facility] 10-31-2022 15:51-0400 Heart rate 78 /min II Lily Del Real Work Phone: [facility] 10-31-2022 15:51-0400 Respiratory rate 16 /min II Lily Del Real Work Phone: [facility] 10-31-2022 15:51-0400 SaO2% (BldA) [Mass fraction] 98 % II Lily Del Real Work Phone: [facility] 10-31-2022 15:51-0400 Systolic blood pressure 100 mm[Hg] II Lily Del Real Work Phone: [facility] 10-31-2022 11:13-0400 Body temperature 97.7 [degF] II Lily Del Real Work Phone: [facility] 10-31-2022 05:31-0400 Body weight 64 kg II Lily Del Real Work Phone: [facility] 10-30-2022 15:22-0400 Body height 162.56 cm II Lily Del Real Work Phone: [facility] 10-30-2022 00:16-0400 Body height 162.56 cm II Lily Del Real Work Phone: [facility] 10-30-2022 00:16-0400 Body temperature 99.4 [degF] II Lily Del Real Work Phone: [facility] 10-30-2022 00:16-0400 Body weight 62.5 kg II Lily Del Real Work Phone: [facility] 10-30-2022 00:16-0400 Diastolic blood pressure 43 mm[Hg] II Lily Del Real Work Phone: [facility] 10-30-2022 00:16-0400 Heart rate 49 /min II Lily Del Real Work Phone: [facility] 10-30-2022 00:16-0400 Inhaled oxygen flow rate 4 L/min II Lily Del Real Work Phone: [facility] 10-30-2022 00:16-0400 Respiratory rate 16 /min II Lily Del Real Work Phone: [facility] 10-30-2022 00:16-0400 SaO2% (BldA) [Mass fraction] 97 % II Lily Del Real Work Phone: [facility] 10-30-2022 00:16-0400 Systolic blood pressure 88 mm[Hg] II Lily Del Real Work Phone: [facility] 05-20-2022 15:19-0400 Body temperature 98.3 [degF] II Lily Del Real Work Phone: [facility] 05-20-2022 15:19-0400 Diastolic blood pressure 62 mm[Hg] II Lily Del Real Work Phone: [facility] 05-20-2022 15:19-0400 Heart rate 68 /min II Lily Del Real Work Phone: [facility] 05-20-2022 15:19-0400 Inhaled oxygen flow rate 3 L/min II Lily Del Real Work Phone: [facility] 05-20-2022 15:19-0400 Respiratory rate 16 /min II Lily Del Real Work Phone: [facility] 05-20-2022 15:19-0400 SaO2% (BldA) [Mass fraction] 100 % II Lily Del Real Work Phone: [facility] 05-20-2022 15:19-0400 Systolic blood pressure 147 mm[Hg] II Lily Del Real Work Phone: [facility] 05-20-2022 06:00-0400 Body weight 62.4 kg II Lily Del Real Work Phone: [facility] 05-17-2022 18:19-0400 Body height 162.56 cm II Lily Del Real Work Phone: [facility] 05-02-2022 14:40-0400 Diastolic blood pressure 66 mm[Hg] II Lily Del Real Work Phone: [facility] 05-02-2022 14:40-0400 Heart rate 66 /min II Lily Del Real Work Phone: [facility] 05-02-2022 14:40-0400 Inhaled oxygen flow rate 3 L/min II Lily Del Real Work Phone: [facility] 05-02-2022 14:40-0400 Respiratory rate 18 /min II Lily Del Real Work Phone: [facility] 05-02-2022 14:40-0400 SaO2% (BldA) [Mass fraction] 97 % II Lily Del Real Work Phone: [facility] 05-02-2022 14:40-0400 Systolic blood pressure 131 mm[Hg] II Lily Del Real Work Phone: [facility] 05-02-2022 14:30-0400 Diastolic blood pressure 57 mm[Hg] II Lily Del Real Work Phone: [facility] 05-02-2022 14:30-0400 Heart rate 56 /min II Lily Del Real Work Phone: [facility] 05-02-2022 14:30-0400 Inhaled oxygen flow rate 3 L/min II Lily Del Real Work Phone: [facility] 05-02-2022 14:30-0400 Respiratory rate 22 /min II Lily Del Real Work Phone: [facility] 05-02-2022 14:30-0400 SaO2% (BldA) [Mass fraction] 98 % II Lily Del Real Work Phone: [facility] 05-02-2022 14:30-0400 Systolic blood pressure 134 mm[Hg] II Lily Del Real Work Phone: [facility] 05-02-2022 13:27-0400 Body height 162.56 cm II Lily Del Real Work Phone: [facility] 05-02-2022 13:27-0400 Body weight 63.5 kg II Lily Del Real Work Phone: [facility] 04-18-2022 11:00-0500 Body height 163.19 cm Maxime Bhatti Other [employer] Other 04-18-2022 11:00-0500 Body mass index (BMI) [Ratio] 25.71 kg/m2 Maxime Bhatti Other [employer] Other 04-18-2022 11:00-0500 Body temperature 97.8 [degF] Maxime Bhatti Other [employer] Other 04-18-2022 11:00-0500 Body weight 68.49 kg Maxime Bhatti Other [employer] Other 04-18-2022 11:00-0500 Diastolic blood pressure 56 mm[Hg] Maxime Bhatti Other [employer] Other 04-18-2022 11:00-0500 SaO2% (BldA) [Mass fraction] 91 % Maxime Bhatti Other [employer] Other 04-18-2022 11:00-0500 Systolic blood pressure 102 mm[Hg] Maxime Bhatti Other [employer] Other 02-27-2022 13:20-0500 Body temperature 98.8 [degF] II Lily Del Real Work Phone: [facility] 02-27-2022 13:20-0500 Diastolic blood pressure 55 mm[Hg] II Lily Del Real Work Phone: [facility] 02-27-2022 13:20-0500 Heart rate 68 /min II Lily Del Real Work Phone: [facility] 02-27-2022 13:20-0500 Inhaled oxygen flow rate 3 L/min II Lily Del Real Work Phone: [facility] 02-27-2022 13:20-0500 Respiratory rate 16 /min II Lily Del Real Work Phone: [facility] 02-27-2022 13:20-0500 SaO2% (BldA) [Mass fraction] 99 % II Lily Del Real Work Phone: [facility] 02-27-2022 13:20-0500 Systolic blood pressure 123 mm[Hg] II Lily Del Real Work Phone: [facility] 02-27-2022 03:06-0500 Body weight 74.3 kg II Lily Del Real Work Phone: [facility] 02-23-2022 15:27-0500 Body height 162.56 cm II Lily Del Real Work Phone: [facility] 02-22-2022 20:12-0500 Diastolic blood pressure 69 mm[Hg] II Lily Del Real Work Phone: [facility] 02-22-2022 20:12-0500 Heart rate 71 /min II Lily Del Real Work Phone: [facility] 02-22-2022 20:12-0500 Inhaled oxygen flow rate 3 L/min II Lily Del Real Work Phone: [facility] 02-22-2022 20:12-0500 Respiratory rate 24 /min II Lily Del Real Work Phone: [facility] 02-22-2022 20:12-0500 SaO2% (BldA) [Mass fraction] 100 % II Lily Del Real Work Phone: [facility] 02-22-2022 20:12-0500 Systolic blood pressure 155 mm[Hg] II Lily Del Real Work Phone: [facility] 02-22-2022 19:24-0500 Body height 162.56 cm II Lily Del Real Work Phone: [facility] 02-22-2022 19:24-0500 Body weight 73.5 kg II Lily Del Real Work Phone: [facility] 02-22-2022 18:38-0500 Body temperature 98.3 [degF] II Lily Del Real Work Phone: [facility] 02-08-2022 13:00-0500 Body height 163.19 cm Aztoya Delphixs Other [facility] [employer] Other 02-08-2022 13:00-0500 Diastolic blood pressure 60 mm[Hg] Aziz Delphixs Other [employer] Other 02-08-2022 13:00-0500 Respiratory rate 18 /min Aziz Wongnai Other [employer] Other 02-08-2022 13:00-0500 Systolic blood pressure 112 mm[Hg] Aziz Delphixs Other [employer] Other 01-17-2022 12:30-0500 Body height 163.19 cm Tessie Walker Other [employer] Other 01-17-2022 12:30-0500 Body mass index (BMI) [Ratio] 25.54 kg/m2 Tessei Walker Other [employer] Other 01-17-2022 12:30-0500 Body temperature 97.8 [degF] Tessie Walker Other [employer] Other 01-17-2022 12:30-0500 Body weight 68.04 kg Tessie Walker Other [employer] Other 01-17-2022 12:30-0500 Diastolic blood pressure 52 mm[Hg] Tessie Walker Other [employer] Other 01-17-2022 12:30-0500 SaO2% (BldA) [Mass fraction] 89 % Tessie Walker Other [employer] Other 01-17-2022 12:30-0500 Systolic blood pressure 110 mm[Hg] Tessie Walker Other [employer] Other 12-20-2021 10:00-0500 Body height 163.19 cm Maxime Bhatti Other [employer] Other 12-20-2021 10:00-0500 Body mass index (BMI) [Ratio] 28.44 kg/m2 Maxime Bhatti Other [employer] Other 12-20-2021 10:00-0500 Body temperature 98.2 [degF] Maxime Bhatti Other [employer] Other 12-20-2021 10:00-0500 Body weight 75.75 kg Maxime Bhatti Other [employer] Other 12-20-2021 10:00-0500 Diastolic blood pressure 40 mm[Hg] Maxime Bhatti Other [employer] Other 12-20-2021 10:00-0500 SaO2% (BldA) [Mass fraction] 96 % Maxime Bhatti Other [employer] Other 12-20-2021 10:00-0500 Systolic blood pressure 110 mm[Hg] Maxime Bhatti Other [employer] [facility] [employer] Other 12-12-2021 10:20-0400 Diastolic blood pressure 46 mm[Hg] II Lily Del Real Work Phone: [facility] 12-12-2021 10:20-0400 Heart rate 58 /min II Lily Del Real Work Phone: [facility] 12-12-2021 10:20-0400 Inhaled oxygen flow rate 3 L/min II Lily Del Real Work Phone: [facility] 12-12-2021 10:20-0400 Systolic blood pressure 105 mm[Hg] II Lily Del Real Work Phone: [facility] 12-10-2021 10:23-0400 Body temperature 98.2 [degF] II Lily Del Real Work Phone: [facility] 12-10-2021 10:23-0400 Respiratory rate 20 /min II Lily Del Real Work Phone: [facility] 12-10-2021 10:23-0400 SaO2% (BldA) [Mass fraction] 99 % II Lily Del Real Work Phone: [facility] 11-28-2021 12:20-0400 Body height 163.19 cm Iglesiatoya Aethlon [employer] Other [employer] Other 11-28-2021 12:20-0400 Body temperature 96.4 [degF] Aztoya Aethlon [employer] Other [employer] Other 11-28-2021 12:20-0400 Diastolic blood pressure 56 mm[Hg] Aztoya Bakarnulfos Other [employer] Other 11-28-2021 12:20-0400 Respiratory rate 18 /min Aztoya Aethlon [employer]arn[employer] Other [employer] [facility] [employer] Other 11-28-2021 12:20-0400 SaO2% (BldA) [Mass fraction] 94 % Geronimo Graham Other [employer] Other 11-28-2021 12:20-0400 Systolic blood pressure 114 mm[Hg] Geronimo Graham Other [employer] [facility] [employer] Other 11-20-2021 12:45-0400 Heart rate 57 /min II Lily Del Real Work Phone: [facility] 11-20-2021 12:45-0400 Respiratory rate 20 /min II Lily Del Real Work Phone: [facility] 11-20-2021 11:28-0400 Body temperature 98.2 [degF] II Lily Del Real Work Phone: [facility] 11-20-2021 11:28-0400 Diastolic blood pressure 45 mm[Hg] II Lily Del Real Work Phone: [facility] 11-20-2021 11:28-0400 SaO2% (BldA) [Mass fraction] 94 % II Lily Del Real Work Phone: [facility] 11-20-2021 11:28-0400 Systolic blood pressure 122 mm[Hg] II Lily Del Real Work Phone: [facility] 11-20-2021 09:25-0400 Inhaled oxygen flow rate 1 L/min II Lily Del Real Work Phone: [facility] 11-20-2021 06:00-0400 Body weight 71.8 kg II Lily Del Real Work Phone: [facility] 11-18-2021 13:14-0400 Body height 162.56 cm II Lily Del Real Work Phone: [facility] 11-17-2021 07:40-0400 Inhaled oxygen concentration 2 % PETER Del Real Work Phone: [facility] 09-20-2021 11:30-0400 Body height 163.19 cm Tessie Montesmarion Other [employer] Other 09-20-2021 11:30-0400 Body mass index (BMI) [Ratio] 28.44 kg/m2 Tessie Denise Other [employer] Other 09-20-2021 11:30-0400 Body temperature 97.7 [degF] Tessie Montesmarion Other [employer] Other 09-20-2021 11:30-0400 Body weight 75.75 kg Tessie Montesmarion Other [employer] Other 09-20-2021 11:30-0400 Diastolic blood pressure 40 mm[Hg] Tessie Montesmarion Other [employer] Other 09-20-2021 11:30-0400 SaO2% (BldA) [Mass fraction] 90 % Tessie Montesmarion Other [employer] Other 09-20-2021 11:30-0400 Systolic blood pressure 120 mm[Hg] Tessie Denise Other [employer] Other 07-25-2021 12:40-0400 Body height 163.19 cm Geronimo A[employer]lon [employer] Other [employer] Other 07-25-2021 12:40-0400 Body mass index (BMI) [Ratio] 28.58 kg/m2 Geronimo Delphixmargarita Other [employer] Other 07-25-2021 12:40-0400 Body temperature 96.1 [degF] Geronimo Dings Other [employer] Other 07-25-2021 12:40-0400 Body weight 76.11 kg Geronimo Dings Other [employer] Other 07-25-2021 12:40-0400 Diastolic blood pressure 53 mm[Hg] Geronimo Dings Other [employer] Other 07-25-2021 12:40-0400 Respiratory rate 16 /min Geronimo Dings Other [employer] Other 07-25-2021 12:40-0400 SaO2% (BldA) [Mass fraction] 93 % Geronimo Dings Other [employer] Other 07-25-2021 12:40-0400 Systolic blood pressure 124 mm[Hg] Geronimo Bakarnulfos Other [employer] Other 06-21-2021 12:30-0400 Body height 163.19 cm Tessie Walker Other [employer] Other 06-21-2021 12:30-0400 Body mass index (BMI) [Ratio] 27.25 kg/m2 Tessie Walker Other [employer] Other 06-21-2021 12:30-0400 Body weight 72.58 kg Tessie Tomiles Other [employer] Other 06-21-2021 12:30-0400 Diastolic blood pressure 64 mm[Hg] Tessie Montesmarion Other [employer] Other 06-21-2021 12:30-0400 Respiratory rate 16 /min Tessie Walker Other [employer] Other 06-21-2021 12:30-0400 SaO2% (BldA) [Mass fraction] 97 % Tessie Walker Other [employer] Other 06-21-2021 12:30-0400 Systolic blood pressure 150 mm[Hg] Tessie Walker Other [employer] Other 05-16-2021 15:20-0400 Body height 163.19 cm Geronimo Wongnai Other [employer] Other 05-16-2021 15:20-0400 Body mass index (BMI) [Ratio] 27.76 kg/m2 Vita Productstoya Wongnai Other [employer] Other 05-16-2021 15:20-0400 Body temperature 97.7 [degF] Geronimo Wongnai Other [employer] Other 05-16-2021 15:20-0400 Body weight 73.94 kg Vita Productstoya Wongnai Other [employer] Other 05-16-2021 15:20-0400 Diastolic blood pressure 64 mm[Hg] Aziz Wongnai Other [employer] Other 05-16-2021 15:20-0400 Respiratory rate 18 /min Vita Productsiz Wongnai Other [employer] Other 05-16-2021 15:20-0400 SaO2% (BldA) [Mass fraction] 96 % Aziz Bakhous Other [employer] Other 05-16-2021 15:20-0400 Systolic blood pressure 159 mm[Hg] Geronimo Graham Other [employer] Other 01-02-2021 17:20-0500 Body height 163.19 cm Narinder Toussaint Other [employer] Other 01-02-2021 17:20-0500 Body mass index (BMI) [Ratio] 30.96 kg/m2 Narinder Toussaint Other [employer] Other 01-02-2021 17:20-0500 Body temperature 97.8 [degF] Narinder Toussaint Other [employer] Other 01-02-2021 17:20-0500 Body weight 82.46 kg Narinder Toussaint Other [employer] Other 01-02-2021 17:20-0500 Diastolic blood pressure 62 mm[Hg] Narinder Toussaint Other [employer] Other 01-02-2021 17:20-0500 Respiratory rate 18 /min Narinder Toussaint Other [employer] Other 01-02-2021 17:20-0500 SaO2% (BldA) [Mass fraction] 94 % Narinder Toussaint Other [employer] Other 01-02-2021 17:20-0500 Systolic blood pressure 145 mm[Hg] Narinder Toussaint Other [employer] Other 04-17-2020 13:29-0500 BP Diastolic 54 mm[Hg] Lily Del Real [facility] 04-17-2020 13:29-0500 BP Systolic 116 mm[Hg] Lily Del Real [facility] 04-17-2020 12:59-0500 Pulse (Heart Rate) 61 /min [facility] 04-17-2020 12:21-0500 Body Temperature 98.8 [degF] Lily Del Real [facility] 04-17-2020 12:21-0500 Respiratory Rate 14 /min Lily Del Real [facility] Encounters Encounter Date Encounter Type Care Provider Facility Start: 11-04-2023 End: 11-04-2023 ambulatory Julius Loyd Facility:[facility] [place] Start: 11-04-2023 End: 11-04-2023 Patient encounter procedure Julius Loyd [facility] Start: 11-03-2023 End: 11-03-2023 ambulatory [facility] Start: 10-28-2023 ambulatory NADEEM [facility] Start: 10-21-2023 End: 10-21-2023 ambulatory Julius Loyd Facility:[facility] [place] Start: 10-21-2023 End: 10-21-2023 Patient encounter procedure Julius Loyd [facility] Start: 10-14-2023 End: 10-14-2023 ambulatory II Lily Del Real Work Phone: [facility] Work Phone: Start: 10-14-2023 End: 10-14-2023 Patient encounter procedure II Lily Del Real Work Phone: [facility] Work Phone: Start: 10-07-2023 End: 10-07-2023 ambulatory Stephan Loyd Facility:[facility] [place] Start: 10-07-2023 End: 10-07-2023 Patient encounter procedure Stephan Loyd [facility] Start: 10-07-2023 End: 10-07-2023 ambulatory REAL HERNANDEZ Not Available Start: 09-29-2023 End: 10-03-2023 Evaluation and management of inpatient Julius Loyd Facility:[facility] [place] Start: 09-29-2023 Emergency department patient visit Marcel Mays Facility:[facility] [place] Start: 09-29-2023 End: 10-03-2023 Evaluation and management of inpatient Armando ArenasLucia Munroe [facility] Start: 09-22-2023 End: 09-22-2023 Emergency department patient visit II Lily Del Real Work Phone: [facility] Work Phone: Start: 09-22-2023 End: 09-22-2023 II Lily Del Real Work Phone: [facility]Emer[facility] Work Phone: Start: 09-20-2023 End: 09-20-2023 Patient encounter procedure II Lily Del Real Work Phone: [facility] [place] Work Phone: Start: 09-20-2023 End: 09-20-2023 II Lily Del Real Work Phone: [facility] [place] Work Phone: Start: 09-20-2023 End: 09-20-2023 ambulatory II Lily Del Real Work Phone: [facility] Work Phone: Start: 09-16-2023 End: 09-16-2023 ambulatory Julius Loyd Facility:[facility] [place] Start: 09-16-2023 End: 09-16-2023 Patient encounter procedure Julius Loyd [facility] Start: 09-16-2023 End: 09-16-2023 ambulatory Julius Loyd Facility:[facility] [place] Start: 09-16-2023 End: 09-16-2023 Patient encounter procedure Julius Loyd [facility] Start: 09-16-2023 ambulatory [facility] Start: 09-15-2023 End: 09-27-2023 Pre-admission assessment Stephan Loyd [facility] Start: 09-12-2023 ambulatory [facility] Start: 09-05-2023 Non-patient / Non-visit II Giuliano Del Real Work Phone: [facility] Work Phone: Start: 09-05-2023 End: 10-10-2023 Pre-admission assessment Stephan Loyd [facility] Start: 09-04-2023 End: 09-04-2023 ambulatory STEPHAN LOYD Not Available Start: 09-03-2023 Non-patient / Non-visit II Giuliano Del Real Work Phone: [facility] Work Phone: Start: 09-01-2023 End: 09-01-2023 ambulatory JEANNIE GUILLERMO Not Available Start: 08-28-2023 End: 08-28-2023 Patient encounter procedure II Lily Del Real Work Phone: [facility] Work Phone: Start: 08-28-2023 End: 08-28-2023 II Lily Del Real Work Phone: [facility] Work Phone: Start: 08-28-2023 End: 08-28-2023 ambulatory II Lily Del Real Work Phone: [facility] Work Phone: Start: 08-21-2023 End: 08-21-2023 ambulatory LILY DEL REAL Not Available Start: 08-07-2023 ambulatory ANGELICAONDINA NUNES [facility] Start: 08-07-2023 Encounter for preprocedural cardiovascular examination [facility] Start: 08-05-2023 End: 08-05-2023 ambulatory TOSHIA WEN [facility] Start: 08-04-2023 Non-patient / Non-visit II Giuliano Del Real Work Phone: [facility] Work Phone: Start: 08-04-2023 II Lily Hughes kavita Work Phone: [facility] Work Phone: Start: 08-01-2023 End: 08-01-2023 Emergency department patient visit II Lily Del Real Work Phone: [facility] Work Phone: Start: 08-01-2023 End: 08-01-2023 II Lily Del Real Work Phone: [facility]-Emergency Room Work Phone: Start: 07-31-2023 ambulatory ANGELICA [facility] Start: 07-24-2023 End: 07-24-2023 ambulatory II Lilystephanie Del Real Work Phone: [facility] Work Phone: Start: 07-24-2023 End: 07-24-2023 Patient encounter procedure II Lily Del Real Work Phone: [facility] Work Phone: Start: 07-24-2023 End: 07-24-2023 II Lily Del Real Work Phone: [facility] Work Phone: Start: 07-17-2023 End: 07-22-2023 Non-patient / Non-visit II Lily Del Real Work Phone: [facility] Work Phone: Start: 07-17-2023 End: 07-22-2023 II Lily Del Real Work Phone: [facility] Work Phone: Start: 07-16-2023 End: 07-22-2023 Non-patient / Non-visit II Lily Del Real Work Phone: [facility] [place] Work Phone: Start: 07-16-2023 End: 07-22-2023 II Lily Del Real Work Phone: [facility] Work Phone: Start: 07-09-2023 End: 07-22-2023 II Lily Del Real Work Phone: [facility] Work Phone: Start: 07-09-2023 End: 07-22-2023 II Lily Del Real Work Phone: [facility] Work Phone: Start: 07-08-2023 End: 07-22-2023 II Lily Del Real Work Phone: [facility] Work Phone: Start: 07-08-2023 End: 07-22-2023 Evaluation and management of inpatient II Lily Del Real Work Phone: [facility] Work Phone: Start: 07-08-2023 Non-patient / Non-visit MD Polly Harry Work Phone: [facility] Work Phone: Start: 07-08-2023 End: 07-08-2023 II Lily Del Real Work Phone: [facility] Work Phone: Start: 07-08-2023 Non-patient / Non-visit MD Polly Harry Work Phone: [facility] Work Phone: Start: 07-08-2023 End: 07-08-2023 II Lily Del Real Work Phone: [facility] Work Phone: Start: 07-08-2023 Non-patient / Non-visit MD Polly Harry Work Phone: [facility] Work Phone: Start: 07-08-2023 End: 07-08-2023 II Lily Del Real Work Phone: [facility] Work Phone: Start: 07-04-2023 End: 07-08-2023 II Lily Del Real Work Phone: [facility] Work Phone: Start: 07-02-2023 [facility] Start: 07-01-2023 Non-patient / Non-visit MD Polly Harry Work Phone: [facility] Work Phone: Start: 07-01-2023 End: 07-08-2023 II Lily Del Real Work Phone: [facility] Work Phone: Start: 07-01-2023 Non-patient / Non-visit MD Polly Harry Work Phone: [facility] Work Phone: Start: 07-01-2023 End: 07-08-2023 II Lily Del Real Work Phone: [facility] Work Phone: Start: 07-01-2023 End: 07-08-2023 Evaluation and management of inpatient MD Azar Palmer Jr Work Phone: [facility] Work Phone: Start: 07-01-2023 End: 07-08-2023 II Lily Del Real Work Phone: [facility] Work Phone: Start: 07-01-2023 Non-patient / Non-visit MD Polly Harry Work Phone: [facility] Work Phone: Start: 07-01-2023 End: 07-08-2023 II Lily Del Real Work Phone: [facility] Work Phone: Start: 06-30-2023 Evaluation and management of inpatient II Lily Del Real Work Phone: [facility] Work Phone: Start: 06-30-2023 observation encounter II Florentin cruz Nasima Work Phone: [facility] Work Phone: Start: 06-26-2023 End: 06-26-2023 ambulatory DIANNA ROJAS Not Available Start: 06-17-2023 End: 06-17-2023 ambulatory Julius Loyd Facility:[facility] [place] Start: 06-17-2023 End: 06-17-2023 Patient encounter procedure Julius Loyd [facility] Start: 06-13-2023 II Lily walls Work Phone: [facility] Work Phone: Start: 06-12-2023 End: 06-12-2023 Patient encounter procedure II Lily Del Real Work Phone: [facility] Work Phone: Start: 06-12-2023 End: 06-12-2023 II Lily Del Real Work Phone: [facility] Work Phone: Start: 06-10-2023 End: 06-10-2023 ambulatory [facility] Start: 06-04-2023 Non-patient / Non-visit II Giuliano Del Real Work Phone: [facility] Work Phone: Start: 06-04-2023 II Lily Hughes kavita Work Phone: [facility] Work Phone: Start: 06-03-2023 End: 06-03-2023 ambulatory Julius Loyd Facility:[facility] [place] Start: 06-03-2023 End: 06-03-2023 Patient encounter procedure Julius Loyd [facility] Start: 05-28-2023 End: 05-28-2023 ambulatory NADEEM [facility] Start: 05-27-2023 End: 05-27-2023 Patient encounter procedure II Lily Del Real Work Phone: [facility] [place] Work Phone: Start: 05-27-2023 End: 05-27-2023 II Lily Del Real Work Phone: [facility] [place] Work Phone: Start: 05-27-2023 End: 05-27-2023 ambulatory II Lily Del Real Work Phone: [facility] Work Phone: Start: 05-08-2023 End: 05-08-2023 ambulatory STEPHAN LOYD Not Available Start: 05-06-2023 End: 05-06-2023 ambulatory Julius Loyd Facility:[facility] [place] Start: 05-06-2023 End: 05-06-2023 Patient encounter procedure Julius Loyd [facility] Start: 05-04-2023 Non-patient / Non-visit II Giuliano Del Real Work Phone: [facility] Work Phone: Start: 05-04-2023 II Lily walls Work Phone: [facility] Work Phone: Start: 05-02-2023 End: 05-02-2023 Emergency department patient visit II Lily Del Real Work Phone: [facility]Emer[facility] Work Phone: Start: 05-02-2023 End: 05-02-2023 II Lily Del Real Work Phone: [facility] Work Phone: Start: 04-29-2023 End: 04-30-2023 Pre-admission assessment Julius Loyd [facility] Start: 04-22-2023 End: 04-22-2023 ambulatory JULIUS Hull DOLCE Not Available Start: 04-16-2023 End: 04-16-2023 Emergency department patient visit II Lily Del Real Work Phone: [facility]-Emergency Room Work Phone: Start: 04-15-2023 End: 04-15-2023 ambulatory JULIUS Della DOLCE Not Available Start: 04-08-2023 End: 04-08-2023 Lab Drop off Julius Hull Caro [facility] Start: 04-08-2023 End: 04-08-2023 ambulatory Julius Loyd Facility:[facility] Start: 04-06-2023 Non-patient / Non-visit II Giuliano lurdes Del Real Work Phone: [facility] Work Phone: Start: 04-02-2023 Non-patient / Non-visit II Giuliano Del Real Work Phone: [facility] Nephrology Work Phone: Start: 04-02-2023 Non-patient / Non-visit II Giuliano Del Real Work Phone: [facility] Vascular Surgery Work Phone: Start: 04-01-2023 End: 04-05-2023 Evaluation and management of inpatient II Lily Del Real Work Phone: [facility] Work Phone: Start: 04-01-2023 Non-patient / Non-visit II Giuliano Del Real Work Phone: [facility] Med OutPt Work Phone: Start: 04-01-2023 Evaluation and management of inpatient II Lily Del Real Work Phone: [facility] Work Phone: Start: 04-01-2023 observation encounter II Florentin Del Real Work Phone: [facility] Work Phone: Start: 04-01-2023 End: 04-01-2023 ambulatory NADEEM [facility] Start: 03-25-2023 End: 03-25-2023 ambulatory Julius Loyd Facility:[facility] [place] [facility] Start: 03-25-2023 End: 03-25-2023 Patient encounter procedure Julius Loyd [facility] Start: 03-18-2023 End: 03-18-2023 ambulatory Julius Loyd Facility:[facility] [facility] Start: 03-05-2023 End: 03-07-2023 ambulatory Lilystephanie Del Real Facility:[facility] Start: 03-05-2023 Evaluation and management of inpatient II Lily Del Real Work Phone: [facility] Work Phone: Start: 03-05-2023 Non-patient / Non-visit II Giuliano chatman Del Real Work Phone: [facility] Physician [facility] Nephrology Work Phone: Start: 03-05-2023 observation encounter II Florentin Del Real Work Phone: [facility] Work Phone: Start: 03-04-2023 End: 03-04-2023 ambulatory Julius Loyd Facility:[facility] [facility] Start: 03-04-2023 End: 03-04-2023 Patient encounter procedure Julius Loyd [facility] Start: 02-25-2023 End: 02-25-2023 ambulatory Julius Loyd Facility:[facility] Start: 02-25-2023 End: 02-25-2023 Patient encounter procedure Julius Loyd [facility] Start: 02-25-2023 End: 02-25-2023 ambulatory NADEEM SANCHEZ [facility] Start: 02-20-2023 End: 02-20-2023 ambulatory LILY DEL REAL Not Available Start: 02-20-2023 End: 02-20-2023 ambulatory STEPHAN R DOLCE Not Available Start: 02-17-2023 ambulatory ANGELICA NUNES [facility] Start: 02-17-2023 End: 02-17-2023 Departed Referred II Lily Del Real Work Phone: [facility]-Dialysis Work Phone: Start: 02-17-2023 End: 02-17-2023 ambulatory II Lily Del Real Work Phone: [facility] Work Phone: Start: 02-06-2023 End: 02-06-2023 ambulatory STEPHAN R DOLCE Not Available Start: 01-31-2023 Evaluation and management of inpatient THOMAS THOMASUR [facility] Start: 01-31-2023 End: 01-31-2023 Evaluation and management of inpatient ANGELICA NUNES [facility] Start: 01-30-2023 Evaluation and management of inpatient NEISHA AVILA [facility] Start: 01-29-2023 Emergency department patient visit ANALILIA LUKE [facility] Start: 01-29-2023 End: 02-01-2023 Evaluation and management of inpatient KEM ROCHA [facility] Start: 01-16-2023 End: 01-16-2023 ambulatory STEPHAN LOYD Not Available Start: 01-13-2023 End: 01-13-2023 ambulatory LILY DEL REAL Not Available Start: 01-06-2023 End: 01-06-2023 ambulatory RYAN [facility] Start: 12-30-2022 End: 01-02-2023 Evaluation and management of inpatient II Lily Del Real Work Phone: [facility] Work Phone: Start: 12-26-2022 End: 12-26-2022 ambulatory EHAB [facility] Start: 12-26-2022 End: 12-26-2022 ambulatory DIANNA Mc CRYSTAL Not Available Start: 12-24-2022 End: 12-24-2022 ambulatory Stephan Albaro Plascenciaelliott Facility:[facility] [place] Start: 12-24-2022 End: 12-24-2022 Patient encounter procedure Stephan R Thaisce [facility] Start: 12-13-2022 End: 12-13-2022 ambulatory UNKNOWN PROVIDER [facility] Start: 12-13-2022 End: 12-16-2022 Evaluation and management of inpatient II Lily Del Real Work Phone: [facility] Work Phone: Start: 12-09-2022 End: 12-09-2022 Patient encounter procedure II Lily Del Real Work Phone: [facility]-Electrodiagnostics Work Phone: Start: 12-09-2022 End: 12-09-2022 ambulatory II Lily Del Real Work Phone: [facility] Work Phone: Start: 12-08-2022 End: 12-09-2022 Evaluation and management of inpatient II Lily Del Real Work Phone: [facility] Work Phone: Start: 12-06-2022 Evaluation and management of inpatient II Lily Del Real Work Phone: [facility] Work Phone: Start: 12-06-2022 observation encounter II Florentin Del Real Work Phone: [facility] Work Phone: Start: 10-30-2022 End: 10-31-2022 Evaluation and management of inpatient II Lily Del Real Work Phone: [facility] Work Phone: Start: 10-29-2022 Evaluation and management of inpatient II Lily Del Real Work Phone: [facility] Work Phone: Start: 10-29-2022 observation encounter II Florentin Del Real Work Phone: [facility] Work Phone: Start: 05-31-2022 End: 06-01-[address] LILY DEL REAL Facility:[facility] Start: 05-17-2022 End: 05-20-2022 Evaluation and management of inpatient II Lily Del Real Work Phone: [facility] Work Phone: Start: 05-02-2022 End: 05-02-2022 Admission to same day surgery center II Lily Del Real Work Phone: [facility]-Interventional Radiology Work Phone: Start: 05-02-2022 End: 05-02-2022 ambulatory II Lily Del Real Work Phone: [facility] Work Phone: Start: 04-18-2022 Office outpatient vi sit 15 minutes Maxime Bhatti [facility] Vascular Surgery Start: 04-18-2022 End: 04-18-2022 ambulatory II Lily Del Real Work Phone: [facility] Work Phone: Start: 04-18-2022 End: 04-18-2022 Patient encounter procedure II Lilystephanie Del Real Work Phone: [facility]-Ultrasound [facility] Vascular Start: 04-12-2022 End: 04-12-2022 ambulatory Maxime Bhatti Other [facility] [employer] Other Start: 04-12-2022 Telephone encounter Maxime [facility] V[facility] Surgery Start: 04-04-2022 End: 04-05-[address] LILY DEL REAL Facility:[facility] Start: 02-23-[address] Lily Del Real II Facility:[id number] Start: 02-22-2022 End: 02-27-2022 Evaluation and management of inpatient II Lily Del Real Work Phone: [facility]-[address] [place] [address] Surgical Work Phone: Start: 02-18-2022 End: 02-18-[address] LILY DEL REAL Facility:[facility] Start: 02-14-2022 End: 02-15-[address] LILY DEL REAL Facility:[facility] Start: 02-08-2022 (INJECTION) INJECTION Aziz Bakhous [facility] Start: 02-08-2022 End: 02-08-2022 ambulatory Aziz Bakhous Other [facility] [employer] Other Start: 01-31-2022 End: 01-31-2022 ambulatory Aziz Bakhous Other [facility] [employer] Other Start: 01-31-2022 Telephone encounter Aziz Bakarnulfos [facility] Start: 01-30-2022 Telephone encounter Aziz Bakhous [facility] Start: 01-30-2022 End: 01-30-2022 ambulatory II Lily Nasima Work Phone: [facility] Work Phone: Start: 01-30-2022 End: 01-30-2022 Patient encounter procedure II Lilystephanie Del Real Work Phone: [facility]-Lab [facility] [place] Start: 01-17-2022 End: 01-17-2022 ambulatory Tessie Montesritumiles Other [employer] Other Start: 01-17-2022 Follow-up encounter Tessie Montesmarion [facility] Start: 01-17-2022 End: 01-17-2022 Patient encounter procedure II Lily Del Real Work Phone: [facility]-Ultrasound [facility] Vascular Start: 01-14-2022 End: 01-15-[address] LILY DEL REAL Facility:[facility] Start: 12-20-2021 End: 12-20-2021 ambulatory Maxime Bhatti Other [employer] Other Start: 12-20-2021 Office outpatient vi sit 15 minutes Maxime Bhatti [facility] Vascular Surgery Start: 12-12-2021 End: 12-12-2021 ambulatory II Lily Del Real Work Phone: [facility] Work Phone: Start: 12-12-2021 End: 12-12-2021 Discharged Recurring II Lily Del Real Work Phone: [facility]-Infusion Therapy - O/P Start: 11-28-2021 End: 11-28-2021 ambulatory Aziz Bakhous Other [employer] Other Start: 11-28-2021 Office outpatient vi sit 25 minutes Aziz Bakhous [facility] Start: 11-22-2021 End: 11-23-[address] LILY DEL REAL Facility:[facility] Start: 11-16-[address] Lily Del Real II Facility:[facility] Start: 11-16-[address] Lily Del Real II Facility:[id number] Start: 11-16-2021 End: 11-20-2021 Evaluation and management of inpatient II Lily Del Real Work Phone: [facility] Start: 11-16-2021 End: 11-16-[address] LILY DEL REAL Facility:[facility] Start: 11-04-2021 End: 11-12-2021 Evaluation and management of inpatient DR JULIUS LINDA Facility:[facility] Start: 10-19-2021 End: 10-21-2021 Evaluation and management of inpatient DR LILY DEL REAL Facility:[facility] Start: 09-20-2021 End: 09-20-2021 ambulatory Tessie Walker Other [employer] Other Start: 09-20-2021 Follow-up encounter Tessie White Vascular Surgery Start: 09-20-2021 End: 09-20-2021 Patient encounter procedure II Lily Del Real Work Phone: [facility]-Ultrasound [facility] Vascular Start: 08-29-2021 End: 09-02-2021 Evaluation and management of inpatient DR LILY DEL REAL Facility:[facility] Start: 07-25-2021 End: 07-25-2021 ambulatory Geronimo Bakarnulfos Other [employer] Other Start: 07-25-2021 Office outpatient vi sit 25 minutes Aziz Bakhous [facility] Start: 07-12-2021 End: 07-12-[address] LLIY DEL REAL Facility:[facility] Start: 07-11-2021 End: 07-12-[address] LILY DEL REAL Facility:[facility] Start: 06-25-2021 End: 06-25-2021 ambulatory Maxime Bhatti Other [employer] Other Start: 06-25-2021 Encounter for other preprocedural examination Maxime Bhatti [facility] Start: 06-25-2021 Telephone encounter Maxime alba [facility] Start: 06-21-2021 End: 06-21-2021 ambulatory Tessie Walker Other [employer] Other Start: 06-21-2021 [facility] visit new patient Tessie Zuleika aquino [facility] Start: 05-16-2021 End: 05-16-2021 ambulatory Geronimo Graham Other [employer] Other Start: 05-16-2021 Office outpatient vi sit 25 minutes Geronimo Dings [facility] Start: 01-02-2021 End: 01-02-2021 ambulatory Narinder Toussaint Other [employer] Other Start: 01-02-2021 Office outpatient vi sit 25 minutes Essam Breana [facility] Start: 05-16-2020 End: 05-16-2020 Patient encounter procedure Lily Del Real -Pre-Surgical Testing Start: 04-17-2020 End: 04-17-2020 Discharged Recurring Lily Del Real -Infusion Therapy - O/P Start: 03-27-2020 End: 03-27-2020 Patient encounter procedure Lily Del Real -Lab [facility] [place] Start: 10-08-2019 End: 10-14-2019 Evaluation and management of inpatient [facility] Facility:[facility] Procedures Date Procedure Procedure Detail Performing Clinician Start: 09-22-2023 SARS-CoV-2, Influenz a & RSV (PCR) II Lily Del Real Work Phone: Start: 09-22-2023 Plain chest X-ray II Steven Del Real Work Phone: Start: 09-20-2023 X-ray of cervical spine II Lily Del Real Work Phone: Start: 08-28-2023 X-ray of cervical spine II Lily Del Real Work Phone: Start: 08-01-2023 Plain chest X-ray II Steven Del Real Work Phone: Start: 07-21-2023 Plain chest X-ray II Da ignacio Del Real Work Phone: Start: 07-14-2023 Urine culture II Lily Del Real Work Phone: Start: 07-14-2023 CT of head without contrast II Lily Del Real Work Phone: Start: 07-04-2023 End: 07-04-2023 X-ray of cervical spine MD Azar Palmer Jr Work Phone: Start: 07-04-2023 Decompression of cer vical spine MD Azar Palmer Jr Work Phone: Start: 07-01-2023 X-ray of cervical spine MD Azar Palmer Jr Work Phone: Start: 06-30-2023 Computed tomography of thoracic spine without contrast II Lily Del Real Work Phone: Start: 06-30-2023 CT angiography of head II Lily Del Real Work Phone: Start: 06-30-2023 CT angiography of ne ck vessels II Lily Del Real Work Phone: Start: 06-30-2023 CT of head without contrast II Lily Del Real Work Phone: Start: 06-30-2023 CT of lumbar spine w ithout contrast II Lily Del Real Work Phone: Start: 06-30-2023 End: 06-30-2023 X-ray of right foot II Lily Del Real Work Phone: Start: 05-27-2023 CT angiography of head II Lily Del Real Work Phone: Start: 05-27-2023 CT angiography of ne ck vessels II Lily Del Real Work Phone: Start: 05-02-2023 CT of head without contrast II Lily Del Real Work Phone: Start: 04-16-2023 CT cervical spine wi thout contrast II Lily Del Real Work Phone: Start: 04-16-2023 CT of head without contrast II Lily Del Real Work Phone: Start: 04-04-2023 MRI of head II Lily Del Real Work Phone: Start: 04-03-2023 Doppler ultrasonogra phy of bilateral carotid arteries II Lily Del Real Work Phone: Start: 04-01-2023 CT angiography of head II Lily Del Real Work Phone: Start: 04-01-2023 CT angiography of ne ck vessels II Lily Del Real Work Phone: Start: 04-01-2023 CT of head without contrast II Lily Del Real Work Phone: Start: 04-01-2023 SARS-CoV-2, Influenz a & RSV (PCR) II Lily Del Real Work Phone: Start: 04-01-2023 Plain chest X-ray II Steven Del Real Work Phone: Start: 03-05-2023 CT of head without contrast II Lily Del Real Work Phone: Start: 03-05-2023 Plain chest X-ray II Steven Del Real Work Phone: Start: 12-30-2022 Respiratory Panel (PCR) II Lily Del Real Work Phone: Start: 12-30-2022 Screening for occult blood in feces II Lily Del Real Work Phone: Start: 12-30-2022 Antibody screen Lily Del Real Comment on above: Result Comment: PERF ORMED BY:[facility] [place], [place] [id number] MEDICAL DIRECTORRAMEZ LARSON M.D. Start: 12-30-2022 Ultrasonography of liver II Lily Del Real Work Phone: Start: 12-30-2022 Diagnostic radiograp hy of abdomen II Lily Del Real Work Phone: Start: 12-29-2022 Plain chest X-ray II Steven Del Real Work Phone: Start: 12-29-2022 Blood culture for ba cteria, including anaerobic screen II Lily Del Real Work Phone: Start: 12-29-2022 SARS-CoV-2, Influenz a & RSV (PCR) II Lily Del Real Work Phone: Start: 12-06-2022 Plain chest X-ray II Steven Del Real Work Phone: Start: 12-06-2022 CT cervical spine wi thout contrast II Lily Del Real Work Phone: Start: 12-06-2022 CT of head without contrast II Lily Del Real Work Phone: Start: 10-29-2022 CT cervical spine wi thout contrast II Lily Del Real Work Phone: Start: 10-29-2022 CT of head without contrast II Lily Del Real Work Phone: Start: 10-29-2022 Plain chest X-ray II Steven Del Real Work Phone: Start: 10-29-2022 Plain X-ray of left shoulder II Lily Del Real Work Phone: Start: 05-20-2022 Colonoscopy II Lily Del Real Work Phone: Start: 05-17-2022 Computed tomography angiography of abdominal and/or pelvic blood vessel II Lily Del Real Work Phone: Start: 05-17-2022 Stool Occult Blood (TRINITY) II Lily Del Real Work Phone: Start: 05-02-2022 IR Fistulogram/TLA S tent (Left) II Lily Del Real Work Phone: Start: 04-18-2022 Ultrasonography of arteriovenous fistula II Lily Del Real Work Phone: Start: 02-22-2022 CT of head without contrast II Lily Del Real Work Phone: Start: 02-22-2022 Plain chest X-ray II Steven Del Real Work Phone: Start: 02-22-2022 Blood culture for ba cteria, including anaerobic screen II Lily Del Real Work Phone: Start: 02-22-2022 SARS-CoV-2, Influenz a & RSV (PCR) II Lily Del Real Work Phone: Start: 02-22-2022 Urine culture II Lily Del Real Work Phone: Start: 01-17-2022 Ultrasonography of arteriovenous fistula II Lily Del Real Work Phone: Start: 11-19-2021 Plain X-ray of right shoulder II Lily Nasima Work Phone: Start: 11-19-2021 IR Fistulogram/TLA S tent (Left) II Lily Del Real Work Phone: Start: 11-19-2021 Ultrasonography of arteriovenous fistula II Lily Del Real Work Phone: Start: 11-17-2021 Plain chest X-ray II Steven Del Real Work Phone: Start: 11-16-2021 Plain X-ray of right shoulder II Lily Del Real Work Phone: Start: 11-16-2021 Ultrasonic guidance for thoracentesis II Lily Del Real Work Phone: Start: 11-16-2021 Plain chest X-ray II Steven Del Real Work Phone: Start: 11-08-[address] eural Cavity, Percutaneous Approach DR LILY DEL REAL Start: 11-05-[address] eural Cavity, Percutaneous Approach DR LILY DEL REAL Start: 09-20-2021 Ultrasonography of arteriovenous fistula II Lily Del Real Work Phone: Start: 09-01-2020 Antibody screen Comment on above: Performed By: #### T SCR ####[facility] [id number] [place], [place] [id number] Start: 03-27-2020 End: 03-27-2020 Aerobic microbial culture Lily Del Real Start: 03-27-2020 End: 03-27-2020 Anaerobic microbial culture Lily Del Real Start: 03-27-2020 Investigation of tra nsfusion reaction Lily Del Real Start: 10-13-2019 MEASURE OF CARDIAC S AMPL \T\ PRESSURE, R HEART, PERC APPROACH [facility]AB A [place] Start: 10-13-2019 MEASUREMENT OF ARTER IAL FLOW, PULMONARY, PERC APPROACH [facility]AB A [place] Acid fast bacilli culture II Lily Del Real Work Phone: Acid fast bacilli culture II Lily Del Real Work Phone: Acid fast stain method II Steven Del Real Work Phone: Aerobic microbial culture II Lily Del Real Work Phone: Anaerobic microbial culture II Lily Del Real Work Phone: Incision AND drainage Brody Munroe Investigation of tra nsfusion reaction II Lily Del Real Work Phone: Mycology culture II Lily walker Work Phone: Plan of Treatment Date Care Activity Detail Author Start: 08-28-2023 X-ray of cervical spine [facility] Start: 08-28-2023 XR Cervical spine 2 Views [facility] Start: 07-22-2023 [facility] Start: 07-15-2023 Measurement of acetylcholine receptor antibody [facility] Start: 07-13-2023 Referral to neurologist [facility] Start: 07-09-2023 [facility] Start: 07-09-2023 Administration of prophylactic treatment [facility] Start: 07-08-2023 [facility] Start: 07-08-2023 Referral to vascular surgery physician [facility] Start: 07-08-2023 Hospital admission [facility] Start: 07-08-2023 Referral to clinical mathematical engineering technician [facility] Start: 07-08-2023 Administration of prophylactic treatment [facility] Start: 07-08-2023 [facility] Start: 07-08-2023 Referral to rehabilitation physician [facility] Start: 07-04-2023 [facility] Start: 07-03-2023 [facility] Start: 07-01-2023 [facility] Start: 06-30-2023 Referral to vascular surgery physician [facility] Start: 06-30-2023 MRI of cervical spine without contrast MR cervical spine wo con [facility] Start: 06-30-2023 Consultation [facility] Start: 06-30-2023 Hospital admission [facility] Start: 06-30-2023 Physical therapy procedure [facility] Start: 06-30-2023 Referral to occupational therapist [facility] Start: 06-30-2023 [facility] Start: 06-30-2023 Telemedicine consultation with patient [facility] Start: 06-30-2023 [facility] Start: 04-05-2023 [facility] Start: 04-02-2023 [facility] Start: 04-01-2023 Referral to neurologist [facility] Start: 04-01-2023 Referral to vascular surgeon [facility] Start: 04-01-2023 Hospital admission [facility] Start: 04-01-2023 Referral to vascular surgery physician [facility] Start: 04-01-2023 [facility] Start: 04-01-2023 CT angiography of head [facility] Start: 04-01-2023 CT angiography of neck vessels [facility] Start: 04-01-2023 Performance of Urinary Filtration, Intermittent, Less than 6 Hours Per Day Performance of Urinary Filtration, Intermittent, Less than 6 Hours Per Day [facility] Start: 03-07-2023 [facility] Start: 03-06-2023 Comprehensive metabolic 2000 panel - Serum or Plasma [facility] Start: 03-06-2023 [facility] Start: 03-05-2023 Physical therapy procedure [facility] Start: 03-05-2023 Referral to occupational therapist [facility] Start: 03-05-2023 End: 03-05-2023 [facility] Start: 03-05-2023 Referral to vascular surgery physician [facility] Start: 03-05-2023 Referral to neurologist [facility] Start: 03-05-2023 Referral to clinical laboratory aide [facility] Start: 03-05-2023 Hospital admission [facility] Start: 03-05-2023 [facility] Start: 03-05-2023 Bacteria identified in Blood by Culture [facility] Start: 01-02-2023 [facility] Start: 12-30-2022 Administration of prophylactic treatment [facility] Start: 12-30-2022 Referral to clinical laboratory aide [facility] Start: 12-30-2022 Hospital admission [facility] Start: 12-30-2022 Referral to vascular surgery physician [facility] Start: 12-29-2022 Plain chest X-ray XR chest 1V portable [facility] Start: 12-29-2022 XR Chest Single view [facility] Start: 12-29-2022 [facility] Start: 12-29-2022 Bacteria identified in Blood by Culture Blood Culture [facility] Start: 12-29-2022 Blood culture for bacteria, including anaerobic screen Blood Culture [facility] Start: 12-16-2022 [facility] Start: 12-13-2022 Referral to vascular surgery physician [facility] Start: 12-13-2022 Hospital admission [facility] Start: 12-13-2022 Referral to clinical laboratory aide [facility] Start: 12-13-2022 Performance of Urinary Filtration, Intermittent, Less than 6 Hours Per Day Performance of Urinary Filtration, Intermittent, Less than 6 Hours Per Day [facility] Start: 12-09-2022 [facility] [facility] Start: 12-07-2022 Hospital admission [facility] Start: 12-07-2022 Referral to clinical laboratory aide [facility] Start: 12-07-2022 Referral to vascular surgery physician [facility] Start: 10-31-2022 [facility] Start: 10-30-2022 Performance of Urinary Filtration, Intermittent, Less than 6 Hours Per Day Performance of Urinary Filtration, Intermittent, Less than 6 Hours Per Day [facility] Start: 10-30-2022 Referral to clinical laboratory aide [facility] Start: 10-30-2022 Blood chemistry [facility] Start: 10-30-2022 [facility] Start: 10-30-2022 Referral to clinical laboratory aide [facility] Start: 10-29-2022 End: 10-30-2022 [facility] Start: 10-29-2022 Physical therapy procedure [facility] Start: 10-29-2022 Referral to vascular surgery physician [facility] Start: 10-29-2022 Referral to occupational therapist [facility] Start: 10-29-2022 Referral to Surety Bond Agent [facility] Start: 10-29-2022 Hospital admission [facility] Start: 10-29-2022 Plain chest X-ray XR chest 1V portable [facility] Start: 10-29-2022 XR Chest Single view [facility] Start: 10-29-2022 Plain X-ray of left shoulder XR shoulder LT min 2V* [facility] Start: 10-29-2022 XR Shoulder - left Views [facility] Start: 05-20-2022 [facility] Start: 05-20-2022 Physical therapy procedure [facility] Start: 05-20-2022 Referral to occupational therapist [facility] Start: 05-19-2022 [facility] Start: 05-17-2022 Referral to power plant operations manager [facility] Start: 05-17-2022 Hospital admission [facility] Start: 05-17-2022 Referral to vascular surgery physician [facility] Start: 05-02-2022 End: 05-02-2022 [facility] Start: 2022 Blood chemistry [facility] Start: 02-25-2022 [facility] Start: 02-23-2022 Blood chemistry [facility] Start: 02-23-2022 [facility] Start: 02-22-2022 Physical therapy procedure [facility] Start: 02-22-2022 Referral to vascular surgery physician [facility] Start: 02-22-2022 Referral to occupational therapist [facility] Start: 02-22-2022 Hospital admission [facility] Start: 02-22-2022 [facility] Start: 02-22-2022 Bacteria identified in Blood by Culture [facility] Start: 02-22-2022 Bacteria identified in Urine by Culture Urine Culture [facility] Start: 02-22-2022 Blood culture for bacteria, including anaerobic screen Blood Culture [facility] Start: 02-22-2022 Performance of Urinary Filtration, Intermittent, Less than 6 Hours Per Day Performance of Urinary Filtration, Intermittent, Less than 6 Hours Per Day [facility] Start: 11-26-2021 Blood chemistry [facility] Start: 11-26-2021 [facility] Start: 11-25-2021 Blood chemistry [facility] Start: 11-25-2021 [facility] Start: 11-24-2021 Blood chemistry [facility] Start: 11-24-2021 [facility] Start: 11-23-2021 Blood chemistry [facility] Start: 11-23-2021 [facility] Start: 11-22-2021 Blood chemistry [facility] Start: 11-22-2021 [facility] Start: 11-21-2021 Blood chemistry [facility] Start: 11-21-2021 [facility] Start: 11-20-2021 [facility] Start: 11-20-2021 Referral to home health care service [facility] Start: 11-19-2021 Consultation [facility] Start: 11-18-2021 Administration of prophylactic treatment [facility] Start: 11-17-2021 Referral to vascular surgeon [facility] Start: 11-16-2021 [facility] Start: 11-16-2021 Dilation of Left Cephalic Vein, Percutaneous Approach Dilation of Left Cephalic Vein, Percutaneous Approach [facility] Start: 11-16-2021 Drainage of Right Pleural Cavity, Percutaneous Approach Drainage of Right Pleural Cavity, Percutaneous Approach [facility] Start: 11-16-2021 Performance of Urinary Filtration, Intermittent, Less than 6 Hours Per Day Performance of Urinary Filtration, Intermittent, Less than 6 Hours Per Day [facility] Start: 11-16-2021 Restriction of Left Cephalic Vein with Intraluminal Device, Percutaneous Approach Restriction of Left Cephalic Vein with Intraluminal Device, Percutaneous Approach [facility] Start: 11-16-2021 Hospital admission [facility] Start: 11-16-2021 [facility] Start: 11-16-2021 Referral to vascular surgery physician [facility] Albumin/Globulin ratio [facility] Anion gap measurement [facility] Basophils [#/volume] in Blood by Automated count [facility] Basophils/100 leukoc ytes in Blood by Automated count [facility] Blood chemistry [facility] Eosinophils [#/volum e] in Blood [facility] Eosinophils/100 leuk ocytes in Blood by Automated count [facility] Erythrocyte distribu tion width [Ratio] by Automated count [facility] Erythrocytes [#/volu me] in Blood [facility] Fungus identified in Unspecified specimen by Culture [facility] Work Phone: Globulin [Mass/volum e] in Serum [facility] Hematocrit [Volume F raction] of Blood [facility] Hemoglobin [Mass/vol ume] in Blood [facility] Leukocytes [#/volume ] corrected for nucleated erythrocytes in Blood by Automated coun [facility] Leukocytes [#/volume ] in Blood [facility] Lymphocytes [#/volum e] in Blood by Automated count [facility] Lymphocytes/100 leuk ocytes in Blood by Automated count [facility] MCH [Entitic mass] b y Automated count [facility] MCHC [Mass/volume] b y Automated count [facility] MCV [Entitic volume] by Automated count [facility] Monocytes [#/volume] in Blood by Automated count [facility] Monocytes/100 leukoc ytes in Blood by Automated count [facility] Muscle specific rece ptor tyrosine kinase Ab [Units/volume] in Serum by Immunoassay [facility] Mycobacterium sp cailin ntified in Unspecified specimen by Organism specific culture [facility] Work Phone: Neutrophils [#/volum e] in Blood by Automated count [facility] Neutrophils/100 leuk ocytes in Blood by Automated count [facility] Nucleated erythrocyt es [Presence] in Blood by Automated count [facility] Patient Education [facility] Work Phone: Patient referral [facility] Work Phone: Platelet mean volume [Entitic volume] in Blood by Automated count [facility] Platelets [#/volume] in Blood [facility] US.doppler Carotid a rteries - bilateral [facility] Varicella zoster vir us DNA [Presence] in Cerebral spinal fluid by MADISON with probe detection [facility] XR Cervical spine [address] [facility] Immunizations Immunization Date Immunization Notes Care Provider Crow nichols 05-16-2020 COVID-19 mRNA,IAC293 b2 (Pfizer) Lily Del Real [facility] 04-24-2020 COVID-19 mRNA,OIS914 b2 (Pfizer) Lily [facility] Payers Date Payer Category Payer Self-pay [id number] 1957 Medicare [id number] 1957 Unknown [id number] 1945 Unknown [id number] 2.16.8 40.1.645297.3.579.2.647 1945 Unknown [id number] 2.16.84 0.1.967617.3.579.2.593 1947 Unknown [id number] 2.16.84 0.1.371935.3.579.2.593 1947 Unknown [id number] 2.16.84 0.1.611184.3.579.2.593 1947 Unknown [id number] 2.16.84 0.1.912002.3.579.2.593 1947 Unknown [id number] 2.16.84 0.1.577209.3.579.2.593 1947 Unknown [id number] 2.16.84 0.1.225956.3.579.2.593 1947 Unknown [id number] 2.16.84 0.1.785314.3.579.2.593 1947 Unknown [id number] 2.16.84 0.1.560788.3.579.2.593 1947 Unknown [id number] 2.16.84 0.1.540700.3.579.2.593 1947 Unknown [id number] 2.16.84 0.1.384758.3.579.2.593 1947 Unknown [id number] 2.16.84 0.1.388286.3.579.2.593 1947 Unknown [id number] 2.16.84 0.1.370202.3.579.2.593 1947 Unknown [id number] 2.16.84 0.1.232284.3.579.2.593 1947 Unknown [id number] 2.16. 840.1.225382.3.579.2.356 1947 Unknown [id number] 2.16. 840.1.767178.3.579.2.356 1947 Unknown [id number] 2.16. 840.1.060601.3.579.2.732 1947 Unknown [id number] 2.16.8 40.1.923703.3.579.2.1286 1947 Unknown [id number] 2.16.8 40.1.603863.3.579.2.1286 1947 Unknown [id number] 2.16.8 40.1.210001.3.579.2.1286 1947 Unknown [id number] 2.16.8 40.1.104933.3.579.2.1286 1947 Unknown [id number] 2.16.8 40.1.893073.3.579.2.1286 1947 Unknown [id number] 2.16.8 40.1.932957.3.579.2.1286 1947 Unknown [id number] 2.16.8 40.1.574586.3.579.2.1286 1947 Unknown [id number] 2.16.8 40.1.806657.3.579.2.1286 1947 Unknown [id number] 2.16.8 40.1.373015.3.579.2.727 1947 Unknown [id number] 2.16.8 40.1.287941.3.579.2.72 1947 Unknown [id number] 2.16.8 40.1.503403.3.579.2. 1947 Unknown [id number] 2.16.8 40.1.476708.3.579.2. 1947 Unknown [id number] 2.16.8 40.1.741524.3.579.2. 1947 Unknown [id number] 2.16.8 40.1.807285.3.579.2. 1947 Unknown [id number] 2.16.8 40.1.462290.3.579.2. 1947 Unknown [id number] 2.16.8 40.1.893603.3.579.2. 1947 Unknown [id number] 2.16.8 40.1.528801.3.579.2. 1947 Unknown [id number] 2.16.8 40.1.754048.3.579.2 1947 Unknown [id number] 2.16.8 40.1.951160.3.579.2. 1947 Unknown [id number] 2.16.8 40.1.625418.3.579.2. 1947 Unknown [id number] 2.16.8 40.1.922997.3.579.2 1947 Unknown [id number] 2.16.8 40.1.193632.3.579.2. 1947 Unknown [id number] 2.16.8 40.1.849595.3.579.2 1947 Unknown [id number] 2.16.8 40.1.130948.3.579.2. 1947 Unknown [id number] 2.16.8 40.1.722108.3.579.2.727 1947 Unknown [id number] 2.16.8 40.1.209094.3.579.2.727 1947 Unknown [id number] 2.16.8 40.1.778780.3.579.2.727 1947 Unknown [id number] 2.16.8 40.1.504122.3.579.2.727 1947 Unknown [id number] 2.16.8 40.1.429616.3.579.2.727 1947 Unknown [id number] 2.16.84 0.1.220087.3.579.2.1259 1947 Unknown [id number] 2.16.84 0.1.019605.3.579.2.1259 1947 Unknown [id number] 2.16.84 0.1.972886.3.579.2.125 1947 Unknown [id number] 2.16.84 0.1.463531.3.579.2.1259 1947 Unknown [id number] 2.16.84 0.1.779898.3.579.2.125 1947 Unknown [id number] 2.16.84 0.1.830928.3.579.2.1259 1947 Unknown [id number] 2.16.84 0.1.855442.3.579.2.1259 1947 Unknown [id number] 2.16.84 0.1.813214.3.579.2.1259 1947 Unknown [id number] 2.16.84 0.1.982559.3.579.2.125 1947 Unknown [id number] 2.16.84 0.1.542088.3.579.2.1259 1947 Unknown [id number] 2.16.84 0.1.577918.3.579.2.125 1947 Unknown [id number] 2.16.84 0.1.294261.3.579.2.1259 1947 Unknown [id number] 2.16.840 .1.884531.3.579.2.1259 1947 Unknown [id number] 2.16.840 .1.664023.3.579.2.1259 1947 Unknown [id number] 2.16.840 .1.382006.3.579.2.1259 1947 Unknown [id number] 2.16.840 .1.121309.3.579.2.1259 1947 Unknown [id number] 2.16.8 40.1.240759.3.579.2.727 1947 Unknown [id number] 2.16.8 40.1.643951.3.579.2.727 1947 Unknown [id number] 2.16.8 40.1.635301.3.579.2.727 1947 Unknown [id number] 2.16.8 40.1.688454.3.579.2.727 Medicare [id number] 2.1 6.840.1.277303.19 Private Health Insurance [id number] Unknown [id number] Unknown [id number] Unknown [id number] 2.16.8 40.1.682509.3.579.2.531 Unknown [id number] 2.16.8 40.1.340343.3.579.2.531 Unknown [id number] 2.16.8 40.1.866716.3.579.2.531 Unknown [id number] 2.16.8 40.1.964206.3.579.2.531 Unknown [id number] 2.16.8 40.1.494080.3.579.2.531 Unknown [id number] 2.16.8 40.1.352863.3.579.2.531 Unknown [id number] 2.16.8 40.1.220048.3.579.2.531 Unknown [id number] 2.16.8 40.1.490825.3.579.2.531 Unknown [id number] 2.16.8 40.1.020334.3.579.2.531 Unknown [id number] 2.16.8 40.1.852054.3.579.2.531 Unknown [id number] 2.16.8 40.1.635219.3.579.2.531 Unknown [id number] 2.16.8 40.1.478227.3.579.2.531 Unknown [id number] 2.16.8 40.1.525358.3.579.2.531 Unknown [id number] 2.16.8 40.1.850070.3.579.2.531 Unknown [id number] 2.16.8 40.1.102894.3.579.2.531 Unknown [id number] 2.16.8 40.1.326019.3.579.2.531 Unknown [id number] 2.16.8 40.1.725104.3.579.2.531 Social History Date Type Detail Facility Start: 05-16-2020 End: 09-22-2023 Tobacco smoking status KSIS Never smoked tobacco (finding) [facility] Start: 1945 Sex Assigned At Female F [facility] Sex Assigned At [facility] Tobacco smoking status No Smokin g Status Entered [facility] Medical Equipment Procedure Code Equipment Code Equipment Origin al Text Equipment Identifier Dates Insertion, catheter, dialysis, peritoneal, laparoscopic [id number] FDA Start: 11-25-2019 Fistulogram ()[id number] FDA Start: 11-19-2021 Decompression, spine, cervical, posterior approach FDA Start: 07-04-2023 Decompression, spine, cervical, posterior approach ()[id number] FDA Start: 07-04-2023 Decompression, spine, cervical, posterior approach ()[id number] FDA Start: 07-04-2023 Decompression, spine, cervical, posterior approach ()[id number] FDA Start: 07-04-2023 Decompression, spine, cervical, posterior approach ()[id number] FDA Start: 07-04-2023 Decompression, spine, cervical, posterior approach ()[id number] FDA Start: 07-04-2023 Decompression, spine, cervical, posterior approach ()[id number] FDA Start: 07-04-2023 Decompression, spine, cervical, posterior approach ()[id number] FDA Start: 07-04-2023 Decompression, spine, cervical, posterior approach FDA Start: 07-04-2023 Decompression, spine, cervical, posterior approach FDA Start: 07-04-2023 Decompression, spine, cervical, posterior approach FDA Start: 07-04-2023 Decompression, spine, cervical, posterior approach FDA Start: 07-04-2023 Decompression, spine, cervical, posterior approach FDA Start: 07-04-2023 Decompression, spine, cervical, posterior approach FDA Start: 07-04-2023 Decompression, spine, cervical, posterior approach CANCELLOUS 15CC CRUSHED FDA Start: 07-04-2023 Pen Needle, Diabetic (Bd Ultra-Fine Lexis Pen Needle) 32 gauge x 5/32 needle Start: 11-20-2021 Pen Needle, Diabetic (Bd Ultra-Fine Lexis Pen Needle) 32 gauge x 5/32 needle Start: 11-20-2021 Pen Needle, Diabetic (Bd Ultra-Fine Lexis Pen Needle) 32 gauge x 5/32 needle Start: 11-20-2021 Pen Needle, Diabetic (Bd Ultra-Fine Lexis Pen Needle) 32 gauge x 5/32 needle Start: 11-20-2021 Pen Needle, Diabetic (Bd Ultra-Fine Lexis Pen Needle) 32 gauge x 5/32 needle Start: 11-20-2021 Pen Needle, Diabetic (Bd Ultra-Fine Lexis Pen Needle) 32 gauge x 5/32 needle Start: 11-20-2021 Pen Needle, Diabetic (Bd Ultra-Fine Lexis Pen Needle) 32 gauge x 5/32 needle Start: 11-20-2021 Pen Needle, Diabetic (Bd Ultra-Fine Lexis Pen Needle) 32 gauge x 5/32 needle Start: 11-20-2021 Pen Needle, Diabetic (Bd Ultra-Fine Lexis Pen Needle) 32 gauge x 5/32 needle Start: 11-20-2021 Pen Needle, Diabetic (Bd Ultra-Fine Lexis Pen Needle) 32 gauge x 5/32 needle Start: 11-20-2021 Pen Needle, Diabetic (Bd Ultra-Fine Lexis Pen Needle) 32 gauge x 5/32 needle Start: 11-20-2021 Pen Needle, Diabetic (Bd Ultra-Fine Lexis Pen Needle) 32 gauge x 5/32 needle Start: 11-20-2021 Pen Needle, Diabetic (Bd Ultra-Fine Lexis Pen Needle) 32 gauge x 5/32 needle Start: 11-20-2021 Pen Needle, Diabetic (Bd Ultra-Fine Lexis Pen Needle) 32 gauge x 5/32 needle Start: 11-20-2021 Pen Needle, Diabetic (Bd Ultra-Fine Lexis Pen Needle) 32 gauge x 5/32 needle Start: 11-20-2021 Pen Needle, Diabetic (Bd Ultra-Fine Lexis Pen Needle) 32 gauge x 5/32 needle Start: 11-20-2021 Pen Needle, Diabetic (Bd Ultra-Fine Lexis Pen Needle) 32 gauge x 5/32 needle Start: 11-20-2021 Pen Needle, Diabetic (Bd Ultra-Fine Lexis Pen Needle) 32 gauge x 5/32 needle Start: 11-20-2021 Pacemaker/ICD FDA Start: 01-30-2023 Pen Needle, Diabetic (Bd Ultra-Fine Lexis Pen Needle) 32 gauge x 5/32 needle Start: 11-20-2021 Pacemaker/ICD FDA Start: 01-30-2023 Pen Needle, Diabetic (Bd Ultra-Fine Lexis Pen Needle) 32 gauge x 5/32 needle Start: 11-20-2021 Pacemaker/ICD FDA Start: 01-30-2023 Pen Needle, Diabetic (Bd Ultra-Fine Lexis Pen Needle) 32 gauge x 5/32 needle Start: 11-20-2021 Pacemaker/ICD FDA Start: 01-30-2023 Pen Needle, Diabetic (Bd Ultra-Fine Lexis Pen Needle) 32 gauge x 5/32 needle Start: 11-20-2021 Pacemaker/ICD FDA Start: 01-30-2023 Pen Needle, Diabetic (Bd Ultra-Fine Lexis Pen Needle) 32 gauge x 5/32 needle Start: 11-20-2021 Pacemaker/ICD FDA Start: 01-30-2023 Pen Needle, Diabetic (Bd Ultra-Fine Lexis Pen Needle) 32 gauge x 5/32 needle Start: 11-20-2021 Pacemaker/ICD FDA Start: 01-30-2023 Pen Needle, Diabetic (Bd Ultra-Fine Lexis Pen Needle) 32 gauge x 5/32 needle Start: 11-20-2021 FDA Start: 01-30-2023 FDA Start: 01-30-2023 FDA Start: 01-30-2023 FDA Start: 01-30-2023 FDA Start: 01-30-2023 FDA Start: 01-30-2023 FDA Start: 01-30-2023 Pacemaker/ICD FDA Start: 01-30-2023 Pen Needle, Diabetic (Bd Ultra-Fine Lexis Pen Needle) 32 gauge x 5/32 needle Start: 11-20-2021 End: 07-22-2023 Goals Date Patient Goal Desired Activity /State Functional Status Date Assessment Result Facility 09-29-2023 Functional Status No [facility] 09-29-2023 Functional Status [facility] 07-22-2023 Functional status Patient Not at Baseline [facility] Work Phone: 06-30-2023 Functional status Patient Not at Baseline [facility] Work Phone: 04-05-2023 Functional status Patient at Baseline [facility] Work Phone: 04-02-2023 Functional status Patient Not at Baseline [facility] Work Phone: 01-02-2023 Functional status Patient at Baseline [facility] Work Phone: 12-16-2022 Functional status Patient at Baseline [facility] Work Phone: 12-09-2022 Functional status Patient at Baseline [facility] Work Phone: 10-31-2022 Functional status Patient at Baseline [facility] Work Phone: 10-30-2022 Functional status Patient Not at Baseline [facility] Work Phone: 05-20-2022 Functional status Patient at Baseline [facility] Work Phone: 02-27-2022 Functional status Patient at Baseline [facility] Work Phone: 11-20-2021 Functional status Patient is Pro gressing Toward Baseline [facility] Work Phone: Mental Status Date Assessment Result Facility 07-22-2023 Cognitive function Patient is Pr ogressing Toward Baseline [facility] Work Phone: 06-30-2023 Cognitive function Patient at Baseline [facility] Work Phone: 04-05-2023 Cognitive function Cognitive Sta tus Patient at Baseline [facility] Work Phone: 01-02-2023 Cognitive function Cognitive Sta tus Patient at Baseline [facility] Work Phone: 12-16-2022 Cognitive function Cognitive Sta tus Patient at Baseline [facility] Work Phone: 12-09-2022 Cognitive function Cognitive Sta tus Patient at Baseline [facility] Work Phone: 10-31-2022 Cognitive function Cognitive Sta tus Patient at Baseline [facility] Work Phone: 10-30-2022 Cognitive function Cognitive Sta tus Patient at Baseline [facility] Work Phone: 05-20-2022 Cognitive function Cognitive Sta tus Patient at Baseline [facility] Work Phone: 02-27-2022 Cognitive function Cognitive Sta tus Patient at Baseline [facility] Work Phone: 11-20-2021 Cognitive function Cognitive Sta tus Patient at Baseline [facility] Work Phone: Clinical Notes 09-01-2020 to 11-03-2023 Note Date & Type Note Facility 11-03-2023 Note [facility] Cardiology Clinic Note Chief Complaint: Patient here for 3 mo follow up aortic valve stenosis, CAD, and orthostatic hypotension. She's been out of mexiletine for about 6 weeks she says. Denies chest pain. Still gets lightheaded when BP is low during dialysis. HPI: Cinthya Wilson is a 78 y.o. female 08/05/2023 Patient here for 2 mo follow up hypotension. Midodrine was increased to 10mg tid at last apt in May 2023. Metoprolol tartrate was changed to metoprolol succinate. She fell about 5 weeks ago and fractured her neck. She states the wheel of her walker got caught in some stones in a parking lot. Still gets occasional lightheadedness but denies this being the cause of the fall. Denies chest pain and palpitations. BP has been running low intermittently. She will feel fatigued during these times. Otherwise she has been feeling okay despite her recent neck injury. She is currently residing at [facility] until August 13. 06/10/2023 She has been dealing with lower blood pressures for the past month. She is symptomatic with these. She will feel dizzy/LH, weakness, trouble ambulating, feels disoriented when it is low. Her valsartan was held and she was started on PRN midodrine. 04/01/23 Patient here for 6 week follow [...] was from the PVC induced polymorphic VT UPDATE 11/03/2023 No significant changes; denies chest pain, shortness of breath is stable Her main issue is trying to keep her blood pressure above 90 mmHg. She has episodes where drop significantly particularly with dialysis. Cardiology ROS: Review of Systems Constitutional: Positive for malaise/fatigue. Cardiovascular: Positive for dyspnea on exertion (intermittent) and leg swelling (intermittent, minimal). Musculoskeletal: Positive for back pain, falls, muscle weakness, myalgias and neck pain. Neurological: Positive for dizziness, focal weakness, light-headedness and weakness. All other systems reviewed and are negative. Past Medical History She has a past medical history of CAD (coronary artery disease) (09/23/2021), COPD (chronic obstructive pulmonary disease) ([facility]/HCC) (09/23/2021), Diastolic heart failure ([facility]/HCC) (09/23/2021), Dyspnea (09/23/2021), Edema (09/23/2021), Essential hypertension (09/23/2021), Hyperlipemia (09/23/2021), Kidney disease (09/23/2021), Orthopnea (09/23/2021), Primary malignant neoplasm ([facility]) (09/23/2021), Sleep apnea, and Type 1 diabetes ([facility]) (09/23/2021). Surgical History She has a past surgical history that includes Thoracentesis (Right); Cardiac catheterization (12/07/2015); and Neck surgery (06/03/2014). Social History She reports that she has never smoked. She has never used smokeless tobacco. She reports that she does not drink alcohol and does not use drugs. Family History No family history on file. Allergies Benazepril, Gabapentin, Lisinopril, and Meloxicam Medications Current Outpatient Medications: aspirin 81 mg EC tablet, Take 81 mg by mouth in the morning., Disp: , Rfl: atorvastatin (Lipitor) 40 mg tablet, Take 40 mg by mouth at bedtime., Disp: , Rfl: busPIRone (Buspar) 10 mg tablet, Take 10 mg by mouth twice a day., Disp: , Rfl: calcium acetate (Phoslo) 667 mg capsule, Take 1,334 mg by mouth with breakfast, with lunch, and with evening meal., Disp: , Rfl: cholecalciferol (Vitamin D-3) 25 MCG (1000 units) tablet, every 12 (twelve) hours., Disp: , Rfl: citalopram (CeleXA) 40 mg tablet, Take 40 mg by mouth in the morning., Disp: , Rfl: qpjwkrtnnjm-uvgkpbxja-srcmfcke (Trelegy Ellipta) 200-62.5-25 mcg blister with device, Inhale., Disp: , Rfl: furosemide (Lasix) 40 mg tablet, Take 0.5 tablets by mouth in the morning and at bedtime., Disp: , Rfl: HumaLOG KwikPen Insulin 100 unit/mL injection, , Disp: , Rfl: lidocaine adhesive patch,medicated patch, 1 patch., Disp: , Rfl: loratadine (Claritin) 5 mg chewable tablet, Chew 5 mg in the morning., Disp: , Rfl: lubiprostone (Amitiza) 8 mcg capsule, Take 8 mcg by mouth with breakfast and with evening meal., Disp: , Rfl: metoprolol succinate XL (Toprol-XL) 25 mg 24 hr tablet, Take 0.5 tablets (12.5 mg) by mouth in the morning for 99 doses. Do not crush or chew., Disp: 15 tablet, Rfl: 3 mexiletine (Mexitil) 200 mg capsule, Take 200 mg by mouth every 8 (eight) hours., Disp: , Rfl: midodrine (Proamatine) 10 mg tablet, Take 1 tablet (10 mg) by mouth before breakfast, before lunch (more content not included)... [facility] 10-06-2023 Note Microbiology PROCEDURE: Blood Culture Charcoal [R1] SOURCE: Blood BODY SITE: Arm R COLLECTED DATE/TIME: 09/29/2023 13:45 EDT RECEIVED DATE/TIME: 09/29/2023 14:02 EDT START DATE/TIME: 09/29/2023 14:02 EDT FREE TEXT SOURCE: Power BRYANT, Zackary Arenas. Power BRYANT, Zackary Arenas. FINAL REPORTS Final Report [] Verified Date/Time: 10/06/2023 14:27 EDT No growth at 7 days. Performing Locations R1: This test was performed at: [facility], [address] [place] [address], [facility] , , [facility] Comment on above: Performed By: #### [id number] #### [facility] [address] [place] [address] 10-05-2023 Note Progress Note-Physic manjinder Patient: CINTHYA WILSON MRN: [id number] Age: 78 years Sex: Female : 1945 Associated Diagnoses: None Author: MD Lambert Ahmad F Postoperative Information Postoperative disposition: Postoperative disposition: To PACU. Optimetrix number: Optimetrix number [id number]. Anesthetic utilized: General. Health Status Allergies: Allergic Reactions (Selected) Severity Not Documented Gabapentin- Tongue swelling. Lisinopril- Cough. Physical Examination VS/Measurements Pain Assessment: Controlled. General: Awake, Alert, Appropriate. Respiratory: Adequate air exchange. Cardiovascular: Stable, Normal peripheral perfusion. Neurological: Normal sensory function, Normal motor function. Assessment Anesthetic outcome No anesthetic complications noted. Adequate pain relief. able to void without difficulty, able to ambulate with assist, tolerating PO intake, no N/V. Review / Management Condition: Stable. Plan Transfer/Discharge: Transfer/Discharge Discharge when meets criteria ( To home ). [facility] Comment on above: Result Comment: Elec tronically Signed By: MD Lambert Ahmad F\.br\Date and Time Signed: 10/05/23 16:22 EDT 10-05-2023 Note Progress Note-Physic manjinder Patient: CINTHYA WILSON Age: 78 years Sex: Female : 1945 Associated Diagnoses: None Author: MD Lambert Ahmad F Preoperative Information Time patient last ate or drank:=== (npo 8 hours) Anesthesia history: Patient history: No prior anesthesia problems. Re-evaluation prior to induction: Completed, Initial evaluation reviewed. Review of Systems Respiratory: No shortness of breath. Cardiovascular: No chest pain. Hematology/Lymphatics: No bruising tendency, No bleeding tendency. Health Status Allergies: Allergic Reactions (All) Severity Not Documented Gabapentin- Tongue swelling. Lisinopril- Cough. Current medications: (Selected) Prescriptions Prescribed Augmentin 500 mg-125 mg Tab: 1 tab(s), Oral, q24hr, 10 tab(s), Refill(s) 0, take one daily and one after each dialysis session for 7 days total therapy, [facility]/pharmacy #[id number], 163, cm, 09/29/23 12:59:00 EDT, Height/Length Dosing, 61, kg, 09/29/23 12:59:00 EDT, Weight Dosing Documented Medications Documented Trelegy Ellipta 100 mcg-62.5 mcg-25 mcg inhalation powder: = 1 puff(s), Inhalation, Daily, Refills(s) 0 acetaminophen-oxycodone 325 mg-5 mg Tab: See Instructions, Refill(s) 0, 1 tab(s) Oral ammonium lactate Top 12% Lotion: 1 deborah, Topical, Refill(s) 0 atorvastatin 40 mg Tab: 40 mg = 1 tab(s), Oral, Daily, Refills(s) 0 busPIRone 10 mg Tab: 10 mg = 1 tab(s), Oral, BID, Refills(s) 0 calcium acetate 667 mg oral capsule: 2,001 mg = 3 cap(s), Oral, QID, Refills(s) 0 citalopram 40 mg Tab: See Instructions, 1 tab(s), Refills(s) 0 docusate sodium 100 mg Cap: 100 mg = 1 cap(s), Oral, BID, Refills(s) 0 furosemide 20 mg Tab: See Instructions, 1 tab(s), Refills(s) 0 insulin lispro 100 units/mL injectable solution: SubCutaneous, Refills(s) 0 mexiletine 200 mg Cap: See Instructions, 1 cap(s) Oral q8hr, Refills(s) 0 midodrine 10 mg oral tablet: 10 mg = 1 tab(s), Oral, TID, Refills(s) 0 orphenadrine 100 mg ER Tab: See Instructions, 1 tab(s) Oral, Refills(s) 0 pramipexole 0.5 mg oral tablet: 0.5 mg = 1 tab(s), Oral, TID, Refills(s) 0 pregabalin 50 mg Cap: 50 mg = 1 cap(s), Oral, Daily, Refills(s) 0 silver sulfADIAZINE Top 1% Crm 20 gram: See Instructions, Refill(s) 0, 1 deborah Topical Problem list: All Problems Transportation insecurity / SNOMED CT [id number] / Possible Problem added automatically by Discern Expert based on clinical documentation MRSA (methicillin resistant staph aureus) culture positive / SNOMED CT [id number] / Confirmed Rt great toe abscess Methicillin-Resistant Staphylococcus MRSA+ Resolved: Coronary artery disease / SNOMED CT [id number] Resolved: Type 2 diabetes mellitus / ICD-9-CM 250.00 Resolved: Hypertension / SNOMED CT 44532497 Resolved: Hyperlipidemia / SNOMED CT [id number] Histories Past Medical History: Resolved Coronary artery disease ([id number]): Resolved. Type 2 diabetes mellitus (250.00): Resolved. Hypertension (05680400): Resolved. Hyperlipidemia ([id number]): Resolved. Family History: No family history items have been selected or recorded. Procedure history: Incision and drainage right foot ([id number]). Social History Social & Psychosocial Habits Alcohol 02/22/2013 Risk Assessment: Denies Alcohol Use Substance Abuse 02/22/2013 Risk Assessment: Denies Substance Abuse Tobacco 02/22/2013 Risk Assessment: Denies Tobacco Use . Physical Examination Please see preop flow sheet Airway: Mallampati classification: II (soft palate, fauces, uvula visible). Respiratory: Lungs are clear to auscultation. Cardiovascular: Normal rate, Regular rhythm. Neurologic: Alert. Review / Management Results review Interpretation of Outside Results Chest x-ray results Radiology results ECG interpretation Condition Plan [place] [employer]hesi[employer] (ASA) physical status classification: Class III. Anesthetic Preoperative Plan Anesthesia: General. . Anesthetic plan, risks, benefits, and alternatives discussed with the patient and/or family. Risks discussed: nausea, vomiting, headache, sore throat, dental injury, serious complications. Patient verbalized understanding. Communication: face to face with patient 5 minutes. [facility] Comment on above: Result Comment: Elec tronically Signed By: MD Fausto, Giuliana White\.marga\Date and Time Signed: 10/05/23 16:21 EDT 10-03-2023 Hospital Discharge instructions Patient Education 10/03/2023 14:36:20 Osteomyelitis, Adult Osteomyelitis, Adult Bone infections, also called osteomyelitis,occur when bacteria or other germs get inside a bone. This can happen if you have an infection in another part of your body that spreads through your blood. It can also happen if you have a wound or a broken bone (fracture) that breaks the skin. A wound or a fracture can allow germs from your skin or from outside of your body to spread to your bone. Bone infections need to be treated quickly to: Prevent bone damage. Prevent the infection from spreading to other areas of your body. What are the causes? Most bone infections are caused by bacteria. The most common bacteria is one found on the skin (staphylococcus). Bone infections can also be caused by other germs, such as viruses and funguses. What increases the risk? You are more likely to develop this condition if: You recently had surgery, especially bone or joint surgery. You have had an injury, such as stepping on a nail or having a fracture that exposes bones through the skin. You have a long-term (chronic) disease, such as: ?Diabetes. ?HIV (human immunodeficiency virus). ?Rheumatoid arthritis. ?Sickle cell anemia. ?Kidney disease that requires dialysis. You have a condition that affects your body's defense system (immune system) or you take medicines that block or weaken the immune system. You have a condition that reduces your blood flow. You have an artificial joint. You have had a joint or bone repaired with plates or screws. You use IV drugs. What are the signs or symptoms? Symptoms vary depending on the type and location of your infection. Common symptoms of bone infections include: Fever and chills. Skin redness and warmth. Swelling. Pain and stiffness. Drainage of fluid or pus near the infection. How is this diagnosed? This condition may be diagnosed based on: Your symptoms and medical history. A physical exam. Tests, such as: ?A sample of tissue, fluid, or blood taken to be examined under a microscope. ?Pus or discharge swabbed from a wound for testing. This is to identify the type of germs and to determine what type of medicine will kill them. ?Blood tests. Imaging studies, including X-rays, MRI, CT scan, bone scan, or ultrasound. How is this treated? Treatment for this condition depends on the cause and type of infection. Antibiotic medicines are usually the first treatment for a bone infection. This may be done in a hospital at first. You may have to continue IV antibiotics at home or take antibiotics by mouth for several weeks after that. Other treatments may include surgery to: Remove or dying tissue from a bone. Remove an infected artificial joint. Remove infected plates or screws that were used to repair a broken bone. Follow these instructions at home: Medicines Take zdgi-ors-jilkrll and prescription medicines as told by your health care provider. Finish all antibiotic medicine even if you start to feel better. Follow instructions from your health care provider about how to take IV antibiotics at home. You may need to have a nurse come to your home to give you the IV antibiotics. Managing pain, stiffness, and swelling If directed, put ice on the affected area. To do this: Put ice in a plastic bag. Place a towel between your skin and the bag. Leave the ice on for 20 minutes, 2 3 times a day. General instructions Ask your health care provider if you have any restrictions on your activities. Do not use any products that contain nicotine or tobacco, such as cigarettes, e-cigarettes, and chewing tobacco. If you need help quitting, ask your health care provider. Keep all follow-up visits as told by your health care provider. This is important. How is this prevented? Wash your hands often to stop the spread of germs. Wash your hands for at least 20 seconds with soap and water. If soap and water are not available, use hand fire tender. Keep any open areas, cuts, or wounds clean. Apply a clean bandage after cleaning the area. Check wounds frequently for signs of infections. Signs of infection include redness, swelling, warmth, pus, or a bad smell. Wear proper footwear to avoid injuries to the feet. Contact a health care provider if: You develop a fever or chills. You have redness, warmth, pain, or swelling that returns after treatment. Get help right away if: You have rapid breathing or you have trouble breathing. You have chest pain. You cannot drink fluids or make urine. The affected area swells, changes color, or turns blue. You have numbness or severe pain in the affected area. These symptoms may represent a serious problem that is an emergency. Do not wait to see if the symptoms will go away. Get medical help right away. Call your local emergency services (911 in the [place] Do not drive yourself to the hospital. Summary Bone infections, also called osteomyelitis,occur when bacteria or other germs get inside a bone. You are more likely to get this type of infection if you have a condition that lowers your ability to fight infections. You are also likely to get this condition if you take medicines that block or weaken the immune system. Most bone infections are caused by bacteria. They can also be caused by other germs, such as viruses and funguses. Treatment for this condition usually starts with taking antibiotics. Further treatment depends on the cause and type of infection. This information is not intended to replace advice given to you by your health care provider. Make sure you discuss any questions you have with your health care provider. Document Revised: 04/13/2020 Document Reviewed: 04/13/2020 [employer] Patient Education 2022 [employer]. 10/03/2023 14:36:20 Osteomyelitis, Adult Osteomyelitis, Adult Bone infections, also called osteomyelitis,occur when bacteria or other germs get inside a bone. This can happen if you have an infection in another part of your body that spreads through your blood. It can also happen if you have a wound or a broken bone (fracture) that breaks the skin. A wound or a fracture can allow germs from your skin or from outside of your body to spread to your bone. Bone infections need to be treated quickly to: Prevent bone damage. Prevent the infection from spreading to other areas of your body. What are the causes? Most bone infections are caused by bacteria. The most common bacteria is one found on the skin (staphylococcus). Bone infections can also be caused by other germs, such as viruses and funguses. What increases the risk? You are more likely to develop this condition if: You recently had surgery, especially bone or joint surgery. You have had an injury, such as stepping on a nail or having a fracture that exposes bones through the skin. You have a long-term (chronic) disease, such as: ?Diabetes. ?HIV (human immunodeficiency virus). ?Rheumatoid arthritis. ?Sickle cell anemia. ?Kidney disease that requires dialysis. You have a condition that affects your body's defense system (immune system) or you take medicines that block or weaken the immune system. You have a condition that reduces your blood flow. You have an artificial joint. You have had a joint or bone repaired with plates or screws. You use IV drugs. What are the signs or symptoms? Symptoms vary depending on the type and location of your infection. Common symptoms of bone infections include: Fever and chills. Skin redness and warmth. Swelling. Pain and stiffness. Drainage of fluid or pus near the infection. How is this diagnosed? This condition may be diagnosed based on: Your symptoms and medical history. A physical exam. Tests, such as: ?A sample of tissue, fluid, or blood taken to be examined under a microscope. ?Pus or discharge swabbed from a wound for testing. This is to identify the type of germs and to determine what type of medicine will kill them. ?Blood tests. Imaging studies, including X-rays, MRI, CT scan, bone scan, or ultrasound. How is this treated? Treatment for this condition depends on the cause and type of infection. Antibiotic medicines are usually the first treatment for a bone infection. This may be done in a hospital at first. You may have to continue IV antibiotics at home or take antibiotics by mouth for several weeks after that. Other treatments may include surgery to: Remove or dying tissue from a bone. Remove an infected artificial joint. Remove infected plates or screws that were used to repair a broken bone. Follow these instructions at home: Medicines Take ojqo-plj-lfjklkn and prescription medicines as told by your health care provider. Finish all antibiotic medicine even if you start to feel better. Follow instructions from your health care provider about how to take IV antibiotics at home. You may need to have a nurse come to your home to give you the IV antibiotics. Managing pain, stiffness, and swelling If directed, put ice on the affected area. To do this: Put ice in a plastic bag. Place a towel between your skin and the bag. Leave the ice on for 20 minutes, 2 3 times a day. General instructions Ask your health care provider if you have any restrictions on your activities. Do not use any products that contain nicotine or tobacco, such as cigarettes, e-cigarettes, and chewing tobacco. If you need help quitting, ask your health care provider. Keep all follow-up visits as told by your health care provider. This is important. How is this prevented? Wash your hands often to stop the spread of germs. Wash your hands for at least 20 seconds with soap and water. If soap and water are not available, use hand fire tender. Keep any open areas, cuts, or wounds clean. Apply a clean bandage after cleaning the area. Check wounds frequently for signs of infections. Signs of infection include redness, swelling, warmth, pus, or a bad smell. Wear proper footwear to avoid injuries to the feet. Contact a health care provider if: You develop a fever or chills. You have redness, warmth, pain, or swelling that returns after treatment. Get help right away if: You have rapid breathing or you have trouble breathing. You have chest pain. You cannot drink fluids or make urine. The affected area swells, changes color, or turns blue. You have numbness or severe pain in the affected area. These symptoms may represent a serious problem that is an emergency. Do not wait to see if the symptoms will go away. Get medical help right away. Call your local emergency services (911 in the [place] Do not drive yourself to the hospital. Summary Bone infections, also called osteomyelitis,occur when bacteria or other germs get inside a bone. You are more likely to get this type of infection if you have a condition that lowers your ability to fight infections. You are also likely to get this condition if you take medicines that block or weaken the immune system. Most bone infections are caused by bacteria. They can also be caused by other germs, such as viruses and funguses. Treatment for this condition usually starts with taking antibiotics. Further treatment depends on the cause and type of infection. This information is not intended to replace advice given to you by your health care provider. Make sure you discuss any questions you have with your health care provider. Document Revised: 04/13/2020 Document Reviewed: 04/13/2020 [employer] Patient Education 2022 [employer]. Follow Up Care 09/29/2023 12:49:28 With:LILY DEL REAL Address: [address] [place] [id number] [facility] (1) When:7 to 10 days Comments:Call for followup appointment With:Stephan Loyd Address: [facility] [address] [place] [address]- [facility]: c/o [address] [place] [address]- When:10/07/2023 Comments:post op visitCall for followup appointment [facility] 10-03-2023 Note Microbiology PROCEDURE: Blood Culture Charcoal [R1] SOURCE: Blood BODY SITE: Arm R COLLECTED DATE/TIME: 09/29/2023 14:20 EDT RECEIVED DATE/TIME: 09/29/2023 14:24 EDT START DATE/TIME: 09/29/2023 14:24 EDT FREE TEXT SOURCE: rt ac Power BRYANT, Zackary Arenas. Power BRYANT, Zackary Arenas. FINAL REPORTS Final Report [] Verified Date/Time: 10/03/2023 15:39 EDT Micrococcus and Related species No standards available for susceptibility testing on this organism. In 1 of 2 blood culture bottles drawn. Isolated from aerobic bottle Probable contaminant. Preliminary gram stain result of gram positive cocci in clusters Result called to Yovani Ledbetter CNP by [facility] and results read back for confirmation on 10/01/2023 13:48:03 Performing Locations R1: This test was performed at: [facility], [address] [place] [address], [id number]- , [place], [facility] Comment on above: Performed By: #### 1 [id number] #### [facility] [address] [place] [id number] 10-03-2023 Note Discharge Summary Admission and Discharge Information Admit Date/Time:09/29/2023 14:36 Admitting Physician - Armando Munroe DO Consulting Physician - Areli Holland, Pennie Loyd DPM, Julius oJhnson MD, Natalie Admitting Diagnoses: 1. Bacteremia due to Staphylococcus, 10/02/2023 Discharge Order Date Discharge with Home Health - Ordered -- 10/03/23 14:35:00 EDT Discharge Diagnoses 1. Bacteremia due to Staphylococcus, 10/02/2023 2. Osteomyelitis of right foot, 09/29/2023 3. Cellulitis, 09/29/2023 4. CAD in cheesh-na artery, 09/29/2023 5. Presence of automatic cardioverter/defibrillator (AICD), 09/29/2023 6. Chronic respiratory failure, 09/29/2023 7. COPD mixed type, 09/29/2023 8. Hypertension, 09/29/2023 9. Hyperlipidemia, 09/29/2023 10. Type 2 diabetes mellitus, 09/29/2023 11. ESRD on dialysis, 09/29/2023 12. Chronic GERD, 09/29/2023 13. Anxiety and depression, 09/29/2023 Dependence on renal dialysis, 09/29/2023 Depression, unspecified, 09/29/2023 Skin problem, 09/29/2023 Toe pain-swelling, 09/29/2023 Unspecified staphylococcus as the cause of diseases classified elsewhere, 10/02/2023 Procedure History Incision AND drainage. Hospital Course The patient is a 78-year-old female with CAD with prior PCI, AICD, chronic respiratory failure on 3 L of oxygen at baseline, PAD, COPD, HTN, HLD, T2DM, and ESRD on hemodialysis at [facility] via left arm fistula, GERD, anxiety and depression who was admitted to [facility] on 09/29/2023 with osteomyelitis of right foot great toe. X-ray of foot showed interval development of a fracture of the distal aspect of the right first proximal phalanx possibly secondary to osteomyelitis and erosions of the distal phalanx of the great toe suggesting osteomyelitis. Dr. Loyd of podiatry was consulted and the patient was started on IV Vanco and cefepime. Infectious disease consulted. Nephrology consulted for continued dialysis. She was unable to have an MRI due to her AICD. Podiatry discussed potential limb salvage and risk of complications due to her PAD and extensive medical history. She was in agreement and underwent a partial first ray amputation of right first toe with Dr. Stephan Loyd on 10/01/2023. She tolerated the procedure well. Her blood cultures were initially negative, however, 1 set came back positive for coag negative staph. Discussed with ID who stated this was most likely contaminant. Repeat blood cultures were drawn on patient and are pending. Recommended 7 days of Augmentin on discharge. Patient medically stable for discharge on 10/03/2019 for discharge home with home health care. Follow-up with Dr. Loyd in 1 to 2 weeks. Follow-up with PCP in 7 to 10 days after discharge. Services Consulted Consult to Infectious Disease Physician - Ordered -- 09/29/23 15:54:00 EDT, right ft osteomyelitis, Consult and Co-manage Consult to Nephrology - Ordered -- 09/29/23 15:53:00 EDT, ESRD on HD at [facility] sched, had tx today; admitted with R ft osteo, Consult and Co-manage Consult to Stationary Engineer - Ordered -- 09/29/23 14:40:00 EDT, Osteomyelitis, Dolelliott HAIRSTON, Julius Hull, Consult and Co-manage Physical Exam Vitals & Measurements T: 36.6 ?C(Axillary) TMIN: 36.3 ?C(Oral) TMAX: 36.9 ?C(Oral) HR: 82(Monitored) RR: 16 BP: 104/52 SpO2: 95% WT: 73.1 kg General: alert, no acute distress. pleasant and conversational Skin: warm, dry Head: no trauma, normocephalic Neck: Trachea midline, no adenopathy, no tenderness Eye: normal conjunctiva, sclera clear ENMT: oral mucosa moist Cardiovascular: regular rate and rhythm, normal peripheral perfusion Respiratory: Lungs CTA, respirations non labored Chest wall: no deformity. Gastrointestinal: soft, non distended, no tenderness, no guarding. Extremities: no deformity, no trauma. no edema. RLE 1st ray amp dressing clean, dry, intact Neurological: oriented x 4, LOC appropriate for age, CN II-XII intact, motor strength equal & normal bilaterally, sensation equal & normal bilaterally, speech normal Psychiatric: cooperative, affect appropriate for age, normal judgement, normal psychiatric thoughts. Tests Performed Blood Culture Charcoal -- Results Pending -- UA with Cult Rflx -- Results Pending -- Vancomycin Level Trough -- Results Pending -- Foot XR Complete Right US PVR Lower EXT Complete Bilat XR Chest Single View Please visit your patient portal for your results or contact your primary care physician. Discharge Plan Discharge Disposition Discharge To, Anticipated II - Home with home health Discharged to - Home with family care Transported by, Anticipated - [facility] Shuttle Discharge Diet Discharge Diet(s): Calorie Controlled- 2000 Calorie Diet (10/03/23 14:33:00) Discharge Diet(s): Calorie Controlled- 2000 Calorie Diet (10/01/23 13:04:00) Discharge Medication List Prescriptions Augmentin 500 mg-125 mg Tab, 1 tab(s), Oral, q24hr Home acetaminophen-oxycodone 325 mg-5 mg Tab, See Instructions ammonium (more content not included)... [facility] Comment on above: Result Comment: Elec tronically Signed By: Brody Alvarado III, DO\.br\Date and Time Signed: 10/03/23 14:37 EDT 10-03-2023 Evaluation + Plan note Extrac tr from: Title:Discharge Note Author:Marilu Alvarado III, DO Date:10/03/23 Discharge To, Anticipated II - Home with home health Discharged to - Home with family care Transported by, Anticipated - [facility] Shuttle Discharge Diet(s): Calorie Controlled- 1999 Calorie Diet (10/03/23 14:33:00) Discharge Diet(s): Calorie Controlled- 1999 Calorie Diet (10/01/23 13:04:00) Prescriptions Augmentin 500 mg-125 mg Tab, 1 tab(s), Oral, q24hr Home acetaminophen-oxycodone 325 mg-5 mg Tab, See Instructions ammonium lactate Top 12% Lotion, 1 deborah, Topical, Still taking, not as prescribed: as needed atorvastatin 40 mg Tab, 40 mg= 1 tab(s), Oral, Daily busPIRone 10 mg Tab, 10 mg= 1 tab(s), Oral, BID calcium acetate 667 mg oral capsule, 2001 mg= 3 cap(s), Oral, QID citalopram 40 mg Tab, See Instructions docusate sodium 100 mg Cap, 100 mg= 1 cap(s), Oral, BID furosemide 20 mg Tab, See Instructions insulin lispro 100 units/mL injectable solution, SubCutaneous mexiletine 200 mg Cap, See Instructions midodrine 10 mg oral tablet, 10 mg= 1 tab(s), Oral, TID orphenadrine 100 mg ER Tab, See Instructions pramipexole 0.5 mg oral tablet, 0.5 mg= 1 tab(s), Oral, TID pregabalin 50 mg Cap, 50 mg= 1 cap(s), Oral, Daily silver sulfADIAZINE Top 1% Crm 20 gram, See Instructions, Still taking, not as prescribed: as needed Trelegy Ellipta 100 mcg-62.5 mcg-25 mcg inhalation powder, 1 puff(s), Inhalation, Daily With When Contact Information Stephan Loyd In 6 days 10/07/2023 EDT [facility] [address] [place] [address]- [facility]: c/o [address] [place] [address]- Additional Instructions: post op visit Call for followup appointment LILY DEL REAL Within 7 to 10 days [address] [place] [address]- [employer] (1) Additional Instructions: Call for followup appointment Osteomyelitis, Adult Osteomyelitis, Adult Extracted from: Title:Progress Note * Author:Pennie Singleton M.D Date:10/03/23 Impression and Plan Diagnosis: R hallux om s/p amp Positive BCx. Course: Progressing as expected. Orders Patient blood culture 1 bottle positive for presumptive clinic as staph. I assume this is a contaminant so does not need to be treated. Right hallux amputated. No culture sent from the toe itself. Favor upon discharge oral Augmentin or doxycycline for short course like 5 or 7 days.. Extracted from: Title:APSO Note Author:Brody Alvarado III, DO Date:10/02/23 78-year-old female with CAD prior PCI, AICD, chronic respiratory failure on 3 l oxygen, COPD, HTN, HPL, DM, ESRD on dialysis at [place] via fistula, GERD, anxiety/depression admitted 09/29/23 with osteomyelitis of right foot on IV abx. POD #1 s/p R 1st partial ray amputation. blood cultures positive. Re-draw blood cultures today. Will discuss with ID and podiatry. 1. Bacteremia due to Staphylococcus (R78.81: Bacteremia) Source likely right lower extremity wound Ordered repeat blood cultures Podiatry and ID following. Will discuss plan with ID going forward. Initial plan was for short-term oral antibiotics, however, this may change. Will discuss possible echo depending on repeat blood culture results. Continue cefepime Ordered: Basic Metabolic Panel Blood Culture Charcoal Blood Culture Charcoal CBC w/ Auto Diff [facility] Hospital Care/Day Moderate 35 Minutes 21449 2. Osteomyelitis of right foot (M86.9: Osteomyelitis, unspecified) Postop day 1 status post right first partial ray amputation Podiatry following Antibiotics as above Cultures per podiatry Per op note did not appear grossly infected during operation. Pain well-controlled per patient Ordered: Basic Metabolic Panel CBC w/ Auto Diff [facility] Hospital Care/Day Moderate 35 Minutes 83206 3. Cellulitis (L03.90: Cellulitis, unspecified) Antibiotics/mgmt as above Ordered: [facility] Hospital Care/Day Moderate 35 Minutes 86611 4. CAD in cheesh-na artery (I25.10: Atherosclerotic heart disease of cheesh-na coronary artery without angina pectoris) Statin, no aspirin currently Ordered: [facility] Care/Day Moderate 35 Minutes 31158 5. Presence of automatic cardioverter/defibrillator (AICD) (Z95.810: Presence of automatic (implantable) cardiac defibrillator) AICD, no discharges, mexiletine long-term use Ordered: [facility] Care/Day Moderate 35 Minutes 13154 6. Chronic respiratory failure (J96.10: Chronic respiratory failure, unspecified whether with hypoxia or hypercapnia) History of chronic respiratory failure on 3 L nasal cannula chronically -No acute exacerbation -Respiratory therapy protocol -Titrate o2 to keep sat > 92% Ordered: [facility] Care/Day Moderate 35 Minutes 65571 7. COPD mixed type (J44.9: Chronic obstructive pulmonary disease, unspecified) As above, nebs ordered PRN Ordered: [facility] Care/Day Moderate 35 Minutes 05824 8. Hypertension (I10: Essential (primary) hypertension) Blood pressure is actually normotensive, slightly hypotensive with dialysis -> midodrine with hold parameters Ordered: [facility] Care/Day Moderate 35 Minutes 97872 9. Hyperlipidemia (E78.5: Hyperlipidemia, unspecified) -atorvastatin 40 mg QD Ordered: [facility] Care/Day Moderate 35 Minutes 68914 10. Type 2 diabetes mellitus (E11.9: Type 2 diabetes mellitus without complications) AccuCheck AC/HS with SSI Ordered: [facility] Care/Day Moderate 35 Minutes 54155 11. ESRD on dialysis (N18.6: End stage renal disease) ESRD on HD on [facility] in [place] -Nephrology consulted for HD while in-patient Ordered: [facility] Care/Day Moderate 35 Minutes 34757 12. Chronic GERD (K21.9: Gastro-esophageal reflux disease without esophagitis) Diet controlled Ordered: [facility] Care/Day Moderate 35 Minutes 41012 13. Anxiety and depression (F41.9: Anxiety disorder, unspecified) BuSpar 10 mg BID, citalopram 40 mg Ordered: [facility] Care/Day Moderate 35 Minutes 61058 Dependence on renal dialysis (Z99.2: Dependence on renal dialysis) Depression, unspecified (F32.A: Depression, unspecified) Unspecified staphylococcus as the cause of diseases classified elsewhere (B95.8: Unspecified staphylococcus as the cause of diseases classified elsewhere) Orders: Ensure, 237 mL, Liquid, Oral, BIDWM, Routine, Start date 10/02/23 17:00:00 EDT, Over Ice Extracted from: Title:Nephrology Progress Note * Author:Natalie Johnson MD Date:10/01/23 Impression and Plan 1. ESRD on HD @ [facility] on MWF over 4 hrs. EDW: 62 kg Access: CONNIE AVF + bruit/thrill -Seen examined on HD today. Will UF 1/2L -Next dialysis treatment on Friday 2. Infected wound with osteomyelitis acute proximal phalanx right hallux with bacteremia. -Status post partial ray amputation and I&D on 09/30 -Blood and wound cultures positive -Antibiotics per primary team and infectious disease 3. Anemia chronic kidney disease - hemoglobin at goal for ESRD. No acute need for STEPHIE therapy Extracted from: Title:APSO Note Author:Ifeoma Ledbetter CNP Date:10/01/23 1. Osteomyelitis of right foot (M86.9: Osteomyelitis, unspecified) Present on admission, failed out patient treatment Right foot XR: Fracture of distal aspect of first proximal phalanx possibly secondary to osteomyelitis. erosions of distal phalanx of great toe suggest osteomyelitis PVRs: Right and left KEYSHA normal at rest. Right foot MRI WO contrast -> unable to obtain at [facility] [place] due to AICD -IV Vanco/Cefepime in ER, continued -Pain control -Podiatry consulted: OR today recommended first ray amputation as an attempt at limb salvage -ID consulted: Maintain IV antibiotics for now, anticipate with all infection removed that short course of oral antibiotics on discharge should suffice 2. Cellulitis (L03.90: Cellulitis, unspecified) As above -IV abx -Bld cx NGTD -ID consultation, input appreciated 3. CAD in cheesh-na artery (I25.10: Atherosclerotic heart disease of cheesh-na coronary artery without angina pectoris) CAD with prior PCI -statin, no asa currently 4. Presence of automatic cardioverter/defibrillator (AICD) (Z95.810: Presence of automatic (implantable) cardiac defibrillator) AICD- no discharges -mexiletine oysterman use 5. Chronic respiratory failure (J96.10: Chronic respiratory failure, unspecified whether with hypoxia or hypercapnia) History of chronic respiratory failure on 3 L nasal cannula chronically -No acute exacerbation -Respiratory therapy protocol -Titrate o2 to keep sat > 92% 6. COPD mixed type (J44.9: Chronic obstructive pulmonary disease, unspecified) As above, nebs ordered PRN 7. Hypertension (I10: Essential (primary) hypertension) Blood pressure is actually normotensive, slightly hypotensive with dialysis -> midodrine 8. Hyperlipidemia (E78.5: Hyperlipidemia, unspecified) -atorvastatin 40 mg QD 9. Type 2 diabetes mellitus (E11.9: Type 2 diabetes mellitus without complications) AccuCheck AC/HS with SSI 10. ESRD on dialysis (N18.6: End stage renal disease) ESRD on HD on F in [place] -Nephrology consulted for HD while in-patient 11. Chronic GERD (K21.9: Gastro-esophageal reflux disease without esophagitis) Diet controlled 12. Anxiety and depression (F41.9: Anxiety disorder, unspecified) BuSpar 10 mg BID, citalopram 40 mg Orders: morphine, 2 mg = 1 mL, Injection, IV Push, Once, Stop date 10/01/23 11:00:00 EDT, Routine, Start date 10/01/23 11:00:00 EDT, 10/01/23 10:26:00 EDT vancomycin + Sodium Chloride 0.9% intravenous solution 100 mL, Reason for Vancomycin: Other reason documented in physician not, 500 mg = 1 EA, Injection, IV Piggyback, Once, Stop date 10/01/23 14:00:00 EDT, Start date 10/01/23 14:00:00 EDT, Infuse over 60 minute(s) Extra SST Tube HgbA1c Referral to Resource Center Referral to Resource Center Vancomycin Level Trough Vancomycin Level Trough Patient continues to require inpatient status for IV antibiotics for treatment of osteomyelitis, failed outpatient therapy, plans for OR today Currently active with home PT/OT and anticipate continuation of this on DC FULL CODE DVT Prophylaxis: subQ Heparin (held for OR today) Addendum by Yovani Reed NP on October 01, 2023 21:33:19 EDT Gram Positive Cocci in clusters In 1 of 2 blood culture bottles drawn, other set of bld cx drawn remain negative. Follow cultures, continue IV medications as ordered. Extracted from: Title:Infection Admission H&P * Author:Pennie Singleton M.D Date:09/30/23 Impression and Plan Diagnosis OM on xray R hallux infection . Course: Progressing as expected. Orders This is a chronic right toe lesion patient presented without systemic symptoms of infection. White count normal. Right toe obviously swollen and tender. X-ray shows osteomyelitis so I believe surgery is already scheduled for tomorrow. Cannot have MRI per chart due to AICD. Empirically on vancomycin and cefepime. Prior wound culture earlier this month with gram-positive rods which is likely skin marianna. Await surgical amputation of findings. Maintain IV antibiotics for now. Anticipate with all infection removed that short course of oral antibiotics and discharge should suffice. Extracted from: Title:ESRD on HD Author:Tayla Hall CNP Date:09/30/23 Impression and Plan 1. ESRD on HD @ [facility] on MWF over 4 hrs. Last HD treatment 09/29/23. EDW: 62 kg Access: CONNIE AVF + bruit/thrill iHD: Friday 2. Rt foot pain: Right foot x-ray reports interval development of fracture of the distal aspect of the first proximal phalanx, possibly secondary to osteomyelitis. Erosions of distal phalanx of the great toe suggest osteomyelitis again identified. -Dr Loyd, podiatry, consulted. Extracted from: Title:APSO Note Author:Khloe VILLALTA, Ifeoma Cruz Date:09/30/23 1. Osteomyelitis of right foot (M86.9: Osteomyelitis, unspecified) Present on admission, follows with Dr. Loyd as out patient Right foot XR: Fracture of distal aspect of first proximal phalanx possibly secondary to osteomyelitis. erosions of distal phalanx of great toe suggest osteomyelitis PVRs completed, results pending Right foot MRI WO contrast pending -> staff should be able to complete pending further ICD info per protocol -IV Vanco/Cefepime in ER, continued -Pain control -ER provider notified Dr Loyd of admit/consult -> updated Dr Loyd who will see patient this afternoon 2. Cellulitis (L03.90: Cellulitis, unspecified) As above -IV abx -Bld cx pending -ID consultation 3. CAD in cheesh-na artery (I25.10: Atherosclerotic heart disease of cheesh-na coronary artery without angina pectoris) CAD with prior PCI -statin, no asa currently 4. Presence of automatic cardioverter/defibrillator (AICD) (Z95.810: Presence of automatic (implantable) cardiac defibrillator) AICD- no discharges -MRI staff will assess compatibility, interrogation per protocol if able to get MRI 5. Chronic respiratory failure (J96.10: Chronic respiratory failure, unspecified whether with hypoxia or hypercapnia) History of chronic respiratory failure on 3 L nasal cannula chronically -No acute exacerbation -Respiratory therapy protocol -Titrate o2 to keep sat > 92% 6. COPD mixed type (J44.9: Chronic obstructive pulmonary disease, unspecified) As above, nebs ordered PRN 7. Hypertension (I10: Essential (primary) hypertension) Blood pressure is actually normotensive, slightly hypotensive with dialysis 8. Hyperlipidemia (E78.5: Hyperlipidemia, unspecified) -atorvastatin 40 mg QD 9. Type 2 diabetes mellitus (E11.9: Type 2 diabetes mellitus without complications) AccuCheck AC/HS with SSI 10. ESRD on dialysis (N18.6: End stage renal disease) ESRD on HD on MWF in [place], had treatment today -Consult nephrology for HD management while admitted 11. Chronic GERD (K21.9: Gastro-esophageal reflux disease without esophagitis) Diet controlled 12. Anxiety and depression (F41.9: Anxiety disorder, unspecified) BuSpar 10 mg twice daily, citalopram Orders: acetaminophen, 650 mg = 2 tab(s), Tab, Oral, q6hr PRN Pain, Routine, Start date 09/29/23 15:42:00 EDT, 09/29/23 15:42:00 EDT cefepime + Sodium Chloride 0.9% intravenous solution 50 mL, 1,000 mg = 1 EA, Injection, IV Piggyback, q24hr, Start date 10/01/23 15:00:00 EDT, 100 mL/hr, Infuse over 30 minute(s) glucose, 50 mL, Soln-IV, IV Push, Once PRN Blood glucose, Routine, Start date 09/29/23 16:35:00 EDT heparin, 5,000 unit(s) = 1 mL, Injection, SubCutaneous, BID for 30 day(s), Stop date 10/29/23 20:59:00 EDT, Routine, Start date 09/29/23 21:00:00 EDT, 09/29/23 15:42:00 EDT insulin lispro, 0-10 Unit(s), Injection-Insulin, SubCutaneous, QIDACHS, Routine, Start date 09/29/23 21:00:00 EDT mexiletine, 150 mg = 1 cap(s), Cap, Oral, Once, Stop date 09/30/23 9:00:00 EDT, Start date 09/30/23 9:00:00 EDT morphine, 2 mg = 1 mL, Injection, IV Push, q4hr PRN Pain for 5 day(s), Stop date 10/04/23 15:41:00 EDT, Routine, Start date 09/29/23 15:42:00 EDT, 09/29/23 15:42:00 EDT vancomycin, PHARMACY TO DOSE, Injection, IV, As Directed, Routine, Start date 09/29/23 15:38:00 EDT Ambulate with Assistance Basic Metabolic Panel Bedside Commode Below the Knee Intermittent Pneumatic Compression Device Cardiac Monitoring CBC w/ Auto Diff Consult to Infectious Disease Physician Consult to Nephrology Diabetic/Calorie Control Diet eGFR Evaluate Need For Continued Telemetry HgbA1c Hypoglycemia Protocol Responsive Patient Hypoglycemia Protocol Unresponsive Patient Intake and Output MRI Foot w/o Contrast Right Notify Provider Vital Signs Notify Provider Vital Signs Oxygen Protocol Precautions Pulse Oximetry Respiratory Protocol Resuscitation Status - Full Routine Capillary Glucose POC Saline Lock Convert From IV US PVR Lower EXT Complete Bilat Vancomycin Level Trough Vital Signs Weight Patient continues to require inpatient status for IV antibiotics for management of her osteomyelitis, awaiting further imaging and recommendations from specialist Full code DVT prophylaxis SubQ Heparin Extracted from: Title:ED Note Author:Power BRYANT, Zackary Harris te:09/29/23 1. Osteomyelitis of right fo ot (M86.9: Osteomyelitis, unspecified) 2. Cellulitis (L03.90: Cellulitis, unspecified) 3. CAD in cheesh-na artery (I25.10: Atherosclerotic heart disease of cheesh-na coronary artery without angina pectoris) 4. Presence of automatic cardioverter/defibrillator (AICD) (Z95.810: Presence of automatic (implantable) cardiac defibrillator) 5. Chronic respiratory failure (J96.10: Chronic respiratory failure, unspecified whether with hypoxia or hypercapnia) 6. COPD mixed type (J44.9: Chronic obstructive pulmonary disease, unspecified) 7. Hypertension (I10: Essential (primary) hypertension) 8. Hyperlipidemia (E78.5: Hyperlipidemia, unspecified) 9. Type 2 diabetes mellitus (E11.9: Type 2 diabetes mellitus without complications) 10. ESRD on dialysis (N18.6: End stage renal disease) 11. Chronic GERD (K21.9: Gastro-esophageal reflux disease without esophagitis) 12. Anxiety and depression (F41.9: Anxiety disorder, unspecified) Dependence on renal dialysis (Z99.2: Dependence on renal dialysis) Depression, unspecified (F32.A: Depression, unspecified) Orders: cefepime + Sodium Chloride 0.9% intravenous solution 50 mL, 1,000 mg = 1 EA, IV Piggyback, Once, Stop date 09/29/23 14:37:00 EDT, STAT, Start date 09/29/23 14:37:00 EDT, 100 mL/hr, Infuse over 30 minute(s), 09/29/23 14:37:00 EDT morphine, 4 mg = 1 mL, Injection, IV Push, Once, Stop date 09/29/23 14:57:00 EDT, STAT, Start date 09/29/23 14:57:00 EDT, 09/29/23 14:57:00 EDT ondansetron, 4 mg = 2 mL, Injection, IV Push, Once, Stop date 09/29/23 14:57:00 EDT, STAT, Start date 09/29/23 14:57:00 EDT, 09/29/23 14:57:00 EDT vancomycin + Generic Diluent 250 mL, 1,250 mg = 250 mL, Soln-IV, IV Piggyback, Once, Stop date 09/29/23 15:00:00 EDT, Start date 09/29/23 15:00:00 EDT, 166.67 mL/hr, Infuse over 90 minute(s) BB Draw & Hold Blood Culture Charcoal Blood Culture Charcoal CBC w/ Auto Diff Comprehensive Metabolic Panel Consult to Stationary Engineer Continuous Pulse Oximetry ECG 12 Lead Adult ED Physician consult Hospitalist for continued care eGFR Extra SST Tube Lactic Acid Lactic Acid PT & PTT Troponin UA with Cult Rflx XR Chest Single View XR Foot 3+ Views Right Extracted from: Title:Admission H & P Author:Khloe Yovani VILLALTA Date:09/29/23 1. Osteomyelitis of right fo ot (M86.9: Osteomyelitis, unspecified) Present on admission, follows with Dr. Loyd as out patient Right foot XR: Fracture of distal aspect of first proximal phalanx possibly secondary to osteomyelitis. Erode gins of distal phalanx of great toe suggest osteomyelitis -IV Vanco/Cefepime in ER, will continue -IV Pain control -ER provider notified Dr Loyd of admit/consult -Check PVRs -Will defer further imaging ie MRI to podiatry as patient has AICD -Blood Cx pending 2. Cellulitis (L03.90: Cellulitis, unspecified) As above -IV abx -ID consultation 3. CAD in cheesh-na artery (I25.10: Atherosclerotic heart disease of cheesh-na coronary artery without angina pectoris) CAD with prior PCI -Await home med rec, would hold antiplatelet agents until seen by sharepoint trainer 4. Presence of automatic cardioverter/defibrillator (AICD) (Z95.810: Presence of automatic (implantable) cardiac defibrillator) AICD- no discharges 5. Chronic respiratory failure (J96.10: Chronic respiratory failure, unspecified whether with hypoxia or hypercapnia) Patient reports history of chronic respiratory failure on 3 L nasal cannula chronically -No acute exacerbation -Respiratory therapy protocol -Titrate o2 to keep sat > 92% 6. COPD mixed type (J44.9: Chronic obstructive pulmonary disease, unspecified) As above, nebs ordered PRN, await med rec 7. Hypertension (I10: Essential (primary) hypertension) Blood pressure is actually normotensive, slightly hypotensive with dialysis -Await home med rec 8. Hyperlipidemia (E78.5: Hyperlipidemia, unspecified) -Med rec pending 9. Type 2 diabetes mellitus (E11.9: Type 2 diabetes mellitus without complications) AccuCheck AC/HS with SSI 10. ESRD on dialysis (N18.6: End stage renal disease) ESRD on HD on MWF in [place], had treatment today -Consult nephrology for HD management while admitted 11. Chronic GERD (K21.9: Gastro-esophageal reflux disease without esophagitis) Await med rec 12. Anxiety and depression (F41.9: Anxiety disorder, unspecified) Stable, await med rec Orders: acetaminophen, 650 mg = 2 tab(s), Tab, Oral, q6hr PRN Pain, Routine, Start date 09/29/23 15:42:00 EDT, 09/29/23 15:42:00 EDT cefepime + Sodium Chloride 0.9% intravenous solution 50 mL, 1,000 mg = 1 EA, Injection, IV Piggyback, q12hr, Start date 09/30/23 3:00:00 EDT, 100 mL/hr, Infuse over 30 minute(s) heparin, 5,000 unit(s) = 1 mL, Injection, SubCutaneous, BID for 30 day(s), Stop date 10/29/23 20:59:00 EDT, Routine, Start date 09/29/23 21:00:00 EDT, 09/29/23 15:42:00 EDT morphine, 2 mg = 1 mL, Injection, IV Push, q4hr PRN Pain for 5 day(s), Stop date 10/04/23 15:41:00 EDT, Routine, Start date 09/29/23 15:42:00 EDT, 09/29/23 15:42:00 EDT vancomycin, PHARMACY TO DOSE, Injection, IV, As Directed, Routine, Start date 09/29/23 15:38:00 EDT Ambulate with Assistance Basic Metabolic Panel Bedside Commode Below the Knee Intermittent Pneumatic Compression Device Cardiac Monitoring CBC w/ Auto Diff Diabetic/Calorie Control Diet Evaluate Need For Continued Telemetry Incentive Spirometry Intake and Output Notify Provider Vital Signs Notify Provider Vital Signs Oxygen Protocol Precautions Pulse Oximetry Respiratory Protocol Resuscitation Status - Full Saline Lock Convert From IV US PVR Lower EXT Complete Bilat Vital Signs Weight Patient requires inpatient status for failure of outpatient therapy for foot wound, osteomyelitis, requiring podiatry consultation and intravenous antibiotics Full code DVT prophylaxis: SubQ heparin Future Appointments Appointment Date:10/07/2023 03:00:00 PM Scheduled Provider:Julius Loyd DPM Location[facility] Appointment Type: Follow Up Visit ([facility]) Diagnostic Tests Pending * Vancomycin Level Trough 10/06/23 [facility] 08-23-2024 NoteProgress Note-Physician Patient: CINTHYA WILSON Age: 78 years Sex: Female : 1945 Associated Diagnoses: None Author: Pennie Singleton M.D Subjective Patient seen today and is receiving dialysis. Has ice on her right foot due to discomfort. s/p POSTOPERATIVE DIAGNOSIS: Infected wound with osteomyelitis acute of the proximal phalanx of the right hallux OPERATION: Incision and drainage with a partial first ray amputation right Health Status Allergies: Allergic Reactions (Selected) Severity Not Documented Gabapentin- Tongue swelling. Lisinopril- Cough. Current medications: Medications (20) Active Scheduled: (15) atorvastatin 40 mg Tab [F] 40 mg 1 tab(s), Oral, Daily busPIRone 10 mg Tab [F] 10 mg 1 tab(s), Oral, BID cefepime + Sodium Chloride 0.9% Minibag 50 mL 1,000 mg 1 EA, IV Piggyback, q24hr citalopram 20 mg Tab [F] 40 mg 2 tab(s), Oral, Daily docusate sodium 100 mg Cap [F] 100 mg 1 cap(s), Oral, BID Ensure Enlive Chocolate 237 mL Liquid [F] 237 mL, Oral, BIDWM heparin 5,000 units/mL Inj [F] 5,000 unit(s) 1 mL, SubCutaneous, BID insulin lispro 100 units/mL (HUMALOG) 10 mL SubQ inj [F] 0-10 Unit(s), SubCutaneous, QIDACHS mexiletine 150 mg Cap [F] 150 mg 1 cap(s), Oral, q8hrFT midodrine 5 mg Tab [F] 10 mg 2 tab(s), Oral, TID Patient Specific Meds [F] Normal Patient Dose, Oral, q8hrFT pramipexole 0.25 mg Tab [F] 0.5 mg 2 tab(s), Oral, TID pregabalin 50 mg Cap [F] 50 mg 1 cap(s), Oral, Daily vancomycin + Sodium Chloride 0.9% 100 mL 500 mg 1 EA, IV Piggyback, Once vancomycin PHARMACY TO DOSE [F] PHARMACY TO DOSE, IV, As Directed Continuous: (1) Sodium Chloride 0.9% 1,000 mL 1,000 mL, IV, 150 mL/hr PRN: (4) acetaminophen 325 mg Tab UD [F] 650 mg 2 tab(s), Oral, q6hr acetaminophen-oxyCODONE 325 mg-5 mg Tab [F] 1 tab(s), Oral, q6hr dextrose 50% IV Jeannette 50 mL Abboject [F] 50 mL, IV Push, Once morphine 2 mg/mL preservative-free SOLN [F] 2 mg 1 mL, IV Push, q4hr Problem list: All Problems MRSA (methicillin resistant staph aureus) culture positive / SNOMED CT [id number] / Confirmed Rt great toe abscess Methicillin-Resistant Staphylococcus MRSA+ Transportation insecurity / SNOMED CT [id number] / Possible Problem added automatically by Discern Expert based on clinical documentation Objective Vital Signs (last 24 hrs) Last Charted Temp Oral 36.4 DegC (OCT 02:) Heart Rate Monitored 67 bpm (OCT 02:) SBP 135 mmHg (OCT 02:00) DBP 60 mmHg (OCT 02:) Weight 73.1 kg (OCT 02 07:03) General: Mild distress. HENT: Normocephalic. Neck: Supple. Respiratory: Lungs are clear to auscultation. Cardiovascular: Normal rate, Regular rhythm. Integumentary: R fiit wraooed with kari; ice on it. Neurologic: Alert. Psychiatric: Cooperative. Review / Management Results review: All Results 10/03/2023 5:58 EDT WBC 9.2 E9/L HGB 10.4 gm/dL LOW Platelet 235.0 E9/L BUN 60 mg/dL HI Creatinine 4.4 mg/dL HI 10/02/2023 6:05 EDT WBC 7.0 E9/L 10/01/2023 6:00 EDT WBC 7.4 E9/L 09/30/2023 5:54 EDT WBC 7.8 E9/L 09/29/2023 14:20 EDT Blood Culture Charcoal POS (In Progress) 09/29/2023 13:45 EDT WBC 10.6 E9/L Blood Culture Charcoal NEG (In Progress) . Impression and Plan Diagnosis: R hallux om s/p amp Positive BCx. Course: Progressing as expected. Orders Patient blood culture 1 bottle positive for presumptive clinic as staph. I assume this is a contaminant so does not need to be treated. Right hallux amputated. No culture sent from the toe itself. Favor upon discharge oral Augmentin or doxycycline for short course like 5 or 7 days..[facility]Comment on above:Result Comment: Electronically Signed By: Pennie Singleton M.D\Date and Time Signed: 10/03/23 09:56 [id number] NoteProgress Note - Pharmacy Vancomycin Pharmacy to Dose Consult Note Indication: Skin and Skin Structure Infection Goal Range: Pre-HD Level: 15-20 RECOMMENDATIONS/ PLAN: Pharmacy consulted for vancomycin dosing for CINTHYA WILSON, a 78 Years old, Female who is being treated with vancomycin for bacteremia/osteomyelitis. 1. Vancomycin therapy is still active, today is day 5 of treatment. Patient is receiving Vancomycindosed based on Pre-HD levels. 2. The most recent vancomycin level was 18 mcg/mL drawn at 0558 on 10/03/23. This is a pre-HD on the5th day of therapy. 3. The vancomycin level is therapeutic, plan to give vancomycin 500 mg IV after HD today. 4. The next level is scheduled for am labs on 10/06/23. We will follow patient renal function, vancomycin levels and doses with you during the course of therapy. Additional recommendations will appear in follow up notes. If you have any questions, please contact the pharmacy at [phone]. Age: 78 Years Allergies: gabapentin; lisinopril Weight:Last Documented Weight and Type of Scale Used Last Documented Weight Weight Measured: 73.1 kg (10/03/23 07:03:00) Type of Scale Used Weight Measured Type of Scale: Bed Scale (digital) (09/29/23 16:54:00) Height: Last Documented Height/Length Last Documented Height/Length Height/Length Measured: 162.56 cm (10/01/23 09:39:00) CrCl: 9 mL/min Labs: WBC: 9.2 E9/L (10/03/23 05:58:00) RBC: 3.5 E12/L Low (10/03/23 05:58:00) HGB: 10.4 gm/dL Low (10/03/23 05:58:00) Hct: 32.6 % Low (10/03/23 05:58:00) MCV: 93.5 fL (10/03/23 05:58:00) MCH: 29.9 pg (10/03/23 05:58:00) MCHC: 32 gm/dL (10/03/23 05:58:00) RDW: 16.8 % High (10/03/23 05:58:00) Platelet: 235 E9/L (10/03/23 05:58:00) MPV: 8.4 fL (10/03/23 05:58:00) Neutro Auto: 68.3 % (10/03/23 05:58:00) Lymph Auto: 17.6 % (10/03/23 05:58:00) Bandera Auto: 10.3 % (10/03/23 05:58:00) Eos Auto: 3.4 % (10/03/23 05:58:00) Basophil Auto: 0.4 % (10/03/23 05:58:00) Neutro Absolute: 6.2 E9/L (10/03/23 05:58:00) Lymph Absolute: 1.6 E9/L (10/03/23 05:58:00) Bandera Absolute: 0.9 E9/L (10/03/23 05:58:00) Eos Absolute: 0.3 E9/L (10/03/23 05:58:00) Basophil Absolute: 0 E9/L (10/03/23 05:58:00) Glucose Lvl: 120 mg/dL (10/03/23 05:58:00) BUN: 60 mg/dL High (10/03/23 05:58:00) Creatinine: 4.4 mg/dL High (10/03/23 05:58:00) eGFR: 10 mL/min/1.73 m2 Low (10/03/23 05:58:00) BUN/Creat Ratio: 14 (10/03/23 05:58:00) Sodium Lvl: 132 mmol/L Low (10/03/23 05:58:00) Potassium Lvl: 5.5 mmol/L High (10/03/23 05:58:00) Chloride: 91 mmol/L Low (10/03/23 05:58:00) CO2: 29 mmol/L (10/03/23 05:58:00) AGAP: 18 mEq/L High (10/03/23 05:58:00) Calcium Lvl: 9.6 mg/dL (10/03/23 05:58:00) Vanco Tr: 18 mcg/mL (10/03/23 05:58:00) Glucose Cap: 100 mg/dL High (10/03/23 07:45:00) POC Device SN: [id number] (10/03/23 07:45:00) POC User ID: [id number] (10/03/23 07:45:00) POC Username: POC Username (10/03/23 07:45:00)[facility] 10-02-2023 NoteProgress Note-Physician Assessment/Plan 78-year-old female with CAD prior PCI, AICD, chronic respiratory failure on 3 l oxygen, COPD, HTN, HPL, DM, ESRD on dialysis at [place] via fistula, GERD, anxiety/depression admitted 09/29/23 with osteomyelitis of right foot on IV abx. POD #1 s/p R 1st partial ray amputation. blood cultures positive. Re-draw blood cultures today. Will discuss with ID and podiatry. 1. Bacteremia due to Staphylococcus (R78.81: Bacteremia) ? Source likely right lower extremity wound ? Ordered repeat blood cultures ? Podiatry and ID following. Will discuss plan with ID going forward. Initial plan was for short-term oral antibiotics, however, this may change. Will discuss possible echo depending on repeat blood culture results. ? Continue cefepime Ordered: Basic Metabolic Panel Blood Culture Charcoal Blood Culture Charcoal CBC w/ Auto Diff [facility] Hospital Care/Day Moderate 35 Minutes 40783 2. Osteomyelitis of right foot (M86.9: Osteomyelitis, unspecified) ? Postop day 1 status post right first partial ray amputation ? Podiatry following ? Antibiotics as above ? Cultures per podiatry ? Per op note did not appear grossly infected during operation. ? Pain well-controlled per patient Ordered: Basic Metabolic Panel [facility] w/ [facility] Moderate 35 Minutes 03245 3. Cellulitis (L03.90: Cellulitis, unspecified) ? Antibiotics/mgmt as above Ordered: [facility]Day Moderate 35 Minutes 63141 4. CAD in cheesh-na artery (I25.10: Atherosclerotic heart disease of cheesh-na coronary artery without angina pectoris) ? Statin, no aspirin currently Ordered: [facility] Hospital Care/Day Moderate 35 Minutes 74434 5. Presence of automatic cardioverter/defibrillator (AICD) (Z95.810: Presence of automatic (implantable) cardiac defibrillator) ? AICD, no discharges, mexiletine long-term use Ordered: [facility] Hospital Care/Day Moderate 35 Minutes 73233 6. Chronic respiratory failure (J96.10: Chronic respiratory failure, unspecified whether with hypoxia or hypercapnia) History of chronic respiratory failure on 3 L nasal cannula chronically -No acute exacerbation -Respiratory therapy protocol -Titrate o2 to keep sat > 92% Ordered: [facility] Hospital Care/Day Moderate 35 Minutes 38276 7. COPD mixed type (J44.9: Chronic obstructive pulmonary disease, unspecified) As above, nebs ordered PRN Ordered: [facility] Care/Day Moderate 35 Minutes 75509 8. Hypertension (I10: Essential (primary) hypertension) Blood pressure is actually normotensive, slightly hypotensive with dialysis -> midodrine with hold parameters Ordered: [facility] Hospital Care/Day Moderate 35 Minutes 61809 9. Hyperlipidemia (E78.5: Hyperlipidemia, unspecified) -atorvastatin 40 mg QD Ordered: [facility] Hospital Care/Day Moderate 35 Minutes 27493 10. Type 2 diabetes mellitus (E11.9: Type 2 diabetes mellitus without complications) AccuCheck AC/HS with SSI Ordered: [facility] Hospital Care/Day Moderate 35 Minutes 04318 11. ESRD on dialysis (N18.6: End stage renal disease) ESRD on HD on [facility] in [place] -Nephrology consulted for HD while in-patient Ordered: [facility] Hospital Care/Day Moderate 35 Minutes 01801 12. Chronic GERD (K21.9: Gastro-esophageal reflux disease without esophagitis) Diet controlled Ordered: [facility] Hospital Care/Day Moderate 35 Minutes 72202 13. Anxiety and depression (F41.9: Anxiety disorder, unspecified) BuSpar 10 mg BID, citalopram 40 mg Ordered: [facility] Hospital Care/Day Moderate 35 Minutes 50058 Dependence on renal dialysis (Z99.2: Dependence on renal dialysis) Depression, unspecified (F32.A: Depression, unspecified) Unspecified staphylococcus as the cause of diseases classified elsewhere (B95.8: Unspecified staphylococcus as the cause of diseases classified elsewhere) Orders: Ensure, 237 mL, Liquid, Oral, BIDWM, Routine, Start date 10/02/23 17:00:00 EDT, Over Ice Subjective Blood cultures positive today. Discussed with patient that she needs to stay for repeat blood cultures pending results. Pain is well-controlled in her right lower extremity after her amputation. Denies any fever, chills, chest pain, shortness of breath, nausea, vomiting, diarrhea. Has good oral intake and is comfortable overall. Review of Systems Constitutional: no fever, no chills, no sweats, no weakness Respiratory: no shortness of breath, no cough, no orthopnea, no wheezing Cardiovascular: no chest pain, no palpitations, no edema Additional ROS info: Except as noted in the above Review of Systems and in the History of Present Illness all other systems have been reviewed and are negative or noncontributory. Objective Vitals & Measurements T: 36.5 ?C(Axillary) TMIN: 36.5 ?C(Axillary) TMAX: 36.8 ?C(Axillary) HR: 64(Monitored) RR: 16 BP: 102/44 SpO2: 99% WT: 63.7 kg Intake & Output This visit (24 hour periods starting at 07:00 EDT) 10/02/23 * 10/01/23 09/30/23 Total Summa (more content not included)...[facility]Comment on above:Result Comment: Electronically Signed By: Brody Alvarado III, DO\.br\Date and Time Signed: 10/02/23 15:01 [id number] NoteInterdisciplinary Note - PT PT Evaluation done this date. Pt. with on AM-PAC this date. CGA x1 with activity this date, does well with gait at 75% WB'ing. Recommend home health PT. Will continue to follow while here.[facility]08-21-2024 Note Progress Note-Physician Basic Information 78-year-old female with CAD prior PCI, AICD, chronic respiratory failure on 3 l oxygen, COPD, HTN, HPL, DM, ESRD on dialysis at [place] via fistula, GERD, anxiety/depression admitted 09/29/23 with osteomyelitis of right foot on IV abx and plans for OR today Assessment/Plan 1. Osteomyelitis of right foot (M86.9: Osteomyelitis, unspecified) Present on admission, failed out patient treatment Right foot XR: Fracture of distal aspect of first proximal phalanx possibly secondary to osteomyelitis. erosions of distal phalanx of great toe suggest osteomyelitis PVRs: Right and left KEYSHA normal at rest. Right foot MRI WO contrast -> unable to obtain at [facility] [place] due to AICD -IV Vanco/Cefepime in ER, continued -Pain control -Podiatry consulted: OR today recommended first ray amputation as an attempt at limb salvage -ID consulted: Maintain IV antibiotics for now, anticipate with all infection removed that short course of oral antibiotics on discharge should suffice 2. Cellulitis (L03.90: Cellulitis, unspecified) As above -IV abx -Bld cx NGTD -ID consultation, input appreciated 3. CAD in cheesh-na artery (I25.10: Atherosclerotic heart disease of cheesh-na coronary artery without angina pectoris) CAD with prior PCI -statin, no asa currently 4. Presence of automatic cardioverter/defibrillator (AICD) (Z95.810: Presence of automatic (implantable) cardiac defibrillator) AICD- no discharges -mexiletine long-term use 5. Chronic respiratory failure (J96.10: Chronic respiratory failure, unspecified whether with hypoxia or hypercapnia) History of chronic respiratory failure on 3 L nasal cannula chronically -No acute exacerbation -Respiratory therapy protocol -Titrate o2 to keep sat > 92% 6. COPD mixed type (J44.9: Chronic obstructive pulmonary disease, unspecified) As above, nebs ordered PRN 7. Hypertension (I10: Essential (primary) hypertension) Blood pressure is actually normotensive, slightly hypotensive with dialysis -> midodrine 8. Hyperlipidemia (E78.5: Hyperlipidemia, unspecified) -atorvastatin 40 mg QD 9. Type 2 diabetes mellitus (E11.9: Type 2 diabetes mellitus without complications) AccuCheck AC/HS with SSI 10. ESRD on dialysis (N18.6: End stage renal disease) ESRD on HD on MWF in [place] -Nephrology consulted for HD while in-patient 11. Chronic GERD (K21.9: Gastro-esophageal reflux disease without esophagitis) Diet controlled 12. Anxiety and depression (F41.9: Anxiety disorder, unspecified) BuSpar 10 mg BID, citalopram 40 mg Orders: morphine, 2 mg = 1 mL, Injection, IV Push, Once, Stop date 10/01/23 11:00:00 EDT, Routine, Start date 10/01/23 11:00:00 EDT, 10/01/23 10:26:00 EDT vancomycin + Sodium Chloride 0.9% intravenous solution 100 mL, Reason for Vancomycin: Other reason documented in physician not, 500 mg = 1 EA, Injection, IV Piggyback, Once, Stop date 10/01/23 14:00:00 EDT, Start date 10/01/23 14:00:00 EDT, Infuse over 60 minute(s) Extra SST Tube HgbA1c Referral to Resource Center Referral to Resource Center Vancomycin Level Trough Vancomycin Level Trough Patient continues to require inpatient status for IV antibiotics for treatment of osteomyelitis, failed outpatient therapy, plans for OR today Currently active with home PT/OT and anticipate continuation of this on DC FULL CODE DVT Prophylaxis: subQ Heparin (held for OR today) Subjective Great deal of pain to right foot, will give extra dose of morphine. No chest pain. No increased shortness of breath. Hemodynamically stable without events on telemetry. Patient is n.p.o. for surgery,no nausea or vomiting. Review of Systems Additional ROS info: Except as noted in the above Review of Systems and in the History of Present Illness all other systems have been reviewed and are negative or noncontributory Objective Vitals & Measurements T: 36.4 ?C(Axillary) TMIN: 36.3 ?C(Oral) TMAX: 36.6 ?C(Axillary) HR: 64(Monitored) RR: 16 BP: 123/45 SpO2: 99% HT: 162.56 cm WT: 64.2 kg Intake & Output This visit (24 hour periods starting at 07:00 EDT) 10/01/23 * 09/30/23 09/29/23 Total Summary Intake mL 2 1,058.2 55 Output mL -- -- -- Fluid Balance 2 1,058.2 55 Intake (6) Ensure mL -- 237 -- Oral Intake mL -- 200 -- Sodium Chloride 0.9% intravenous solution 1,000 mL mL -- 619.2 -- Sodium Chloride 0.9%, cefepime mL -- -- 50 morphine mL 2 2 3 ondansetron mL -- -- 2 Total 2 1,058.2 55 Output (0) Counts (0) * This column has not completed the indicated time period. Physical Exam General: thin elderly female,sitting up in chair, NAD Eyes: PERRLA, intact EOM HEENT: Mucous membrane pink, moist, Normal tongue. Neck: supple Lungs: Lungs with decreased air exchange, on 3 L chronically Cardio: Regular S1, S2, good perfusion Pulses: Normal capillary refill Abdomen: mildly-distended, soft non-tender (more content not included)...[facility]Comment on above:Result Comment: Electronically Signed By: Yovani Ledbetter CNP\.br\Date and Time Signed: 10/01/23 21:33 EDT\.br\Electronically Co-Signed By: Armando Munroe DO10-01-2023 Note Progress Note-Physician Basic Information 78-year-old female with CAD prior PCI, AICD, chronic respiratory failure on 3 l oxygen, COPD, HTN, HPL, DM, ESRD on dialysis at [place] via fistula, GERD, anxiety/depression admitted 09/29/23 with osteomyelitis of right foot on IV abx and plans for OR today Assessment/Plan 1. Osteomyelitis of right foot (M86.9: Osteomyelitis, unspecified) Present on admission, failed out patient treatment Right foot XR: Fracture of distal aspect of first proximal phalanx possibly secondary to osteomyelitis. erosions of distal phalanx of great toe suggest osteomyelitis PVRs: Right and left KEYSHA normal at rest. Right foot MRI WO contrast -> unable to obtain at [facility] [place] due to AICD -IV Vanco/Cefepime in ER, continued -Pain control -Podiatry consulted: OR today recommended first ray amputation as an attempt at limb salvage -ID consulted: Maintain IV antibiotics for now, anticipate with all infection removed that short course of oral antibiotics on discharge should suffice 2. Cellulitis (L03.90: Cellulitis, unspecified) As above -IV abx -Bld cx NGTD -ID consultation, input appreciated 3. CAD in cheesh-na artery (I25.10: Atherosclerotic heart disease of cheesh-na coronary artery without angina pectoris) CAD with prior PCI -statin, no asa currently 4. Presence of automatic cardioverter/defibrillator (AICD) (Z95.810: Presence of automatic (implantable) cardiac defibrillator) AICD- no discharges -mexiletine oysterman use 5. Chronic respiratory failure (J96.10: Chronic respiratory failure, unspecified whether with hypoxia or hypercapnia) History of chronic respiratory failure on 3 L nasal cannula chronically -No acute exacerbation -Respiratory therapy protocol -Titrate o2 to keep sat > 92% 6. COPD mixed type (J44.9: Chronic obstructive pulmonary disease, unspecified) As above, nebs ordered PRN 7. Hypertension (I10: Essential (primary) hypertension) Blood pressure is actually normotensive, slightly hypotensive with dialysis -> midodrine 8. Hyperlipidemia (E78.5: Hyperlipidemia, unspecified) -atorvastatin 40 mg QD 9. Type 2 diabetes mellitus (E11.9: Type 2 diabetes mellitus without complications) AccuCheck AC/HS with SSI 10. ESRD on dialysis (N18.6: End stage renal disease) ESRD on HD on MWF in [place] -Nephrology consulted for HD while in-patient 11. Chronic GERD (K21.9: Gastro-esophageal reflux disease without esophagitis) Diet controlled 12. Anxiety and depression (F41.9: Anxiety disorder, unspecified) BuSpar 10 mg BID, citalopram 40 mg Orders: morphine, 2 mg = 1 mL, Injection, IV Push, Once, Stop date 10/01/23 11:00:00 EDT, Routine, Start date 10/01/23 11:00:00 EDT, 10/01/23 10:26:00 EDT vancomycin + Sodium Chloride 0.9% intravenous solution 100 mL, Reason for Vancomycin: Other reason documented in physician not, 500 mg = 1 EA, Injection, IV Piggyback, Once, Stop date 10/01/23 14:00:00 EDT, Start date 10/01/23 14:00:00 EDT, Infuse over 60 minute(s) Extra SST Tube HgbA1c Referral to Resource Center Referral to Resource Center Vancomycin Level Trough Vancomycin Level Trough Patient continues to require inpatient status for IV antibiotics for treatment of osteomyelitis, failed outpatient therapy, plans for OR today Currently active with home PT/OT and anticipate continuation of this on DC FULL CODE DVT Prophylaxis: subQ Heparin (held for OR today) Subjective Great deal of pain to right foot, will give extra dose of morphine. No chest pain. No increased shortness of breath. Hemodynamically stable without events on telemetry. Patient is n.p.o. for surgery,no nausea or vomiting. Review of Systems Additional ROS info: Except as noted in the above Review of Systems and in the History of Present Illness all other systems have been reviewed and are negative or noncontributory Objective Vitals & Measurements T: 36.4 ?C(Axillary) TMIN: 36.3 ?C(Oral) TMAX: 36.6 ?C(Axillary) HR: 64(Monitored) RR: 16 BP: 123/45 SpO2: 99% HT: 162.56 cm WT: 64.2 kg Intake & Output This visit (24 hour periods starting at 07:00 EDT) 10/01/23 * 09/30/23 09/29/23 Total Summary Intake mL 2 1,058.2 55 Output mL -- -- -- Fluid Balance 2 1,058.2 55 Intake (6) Ensure mL -- 237 -- Oral Intake mL -- 200 -- Sodium Chloride 0.9% intravenous solution 1,000 mL mL -- 619.2 -- Sodium Chloride 0.9%, cefepime mL -- -- 50 morphine mL 2 2 3 ondansetron mL -- -- 2 Total 2 1,058.2 55 Output (0) Counts (0) * This column has not completed the indicated time period. Physical Exam General: thin elderly female,sitting up in chair, NAD Eyes: PERRLA, intact EOM HEENT: Mucous membrane pink, moist, Normal tongue. Neck: supple Lungs: Lungs with decreased air exchange, on 3 L chronically Cardio: Regular S1, S2, good perfusion Pulses: Normal capillary refill Abdomen: mildly-distended, soft non-tender (more content not included)...[facility]Comment on above:Result Comment: Electronically Signed By: Yovani Ledbetter CNP\.br\Date and Time Signed: 10/01/23 21:33 EDT\.br\Electronically Co-Signed By: Armando Munroe DO.br\Date and Time Co-Signed:10/02/23 07:03 [id number] NoteProgress Note-Physician Patient: CINTHYA WILSON Age: 78 years Sex: Female : 1945 Associated Diagnoses: None Author: Natalie Johnson MD Subjective Just underwent partial amputation of right ray and I&D Seen examined on HD. Patient with no specific complaints Review of Systems As in HPI the 10 point view systems is negative Health Status Current medications: Home Medications (19) Active acetaminophen-oxycodone 325 mg-5 mg Tab See Instructions ammonium lactate Top 12% Lotion 1 deborah, Topical atorvastatin 40 mg Tab 40 mg = 1 tab(s), Oral, Daily bisoprolol 10 mg Tab 10 mg = 1 tab(s), Oral, Daily busPIRone 10 mg Tab 10 mg = 1 tab(s), Oral, BID calcium acetate 667 mg oral capsule 2,001 mg = 3 cap(s), Oral, QID cephalexin 250 mg Cap See Instructions citalopram 40 mg Tab See Instructions cyclobenzaprine 10 mg Tab 10 mg = 1 tab(s), Oral, TID docusate sodium 100 mg Cap 100 mg = 1 cap(s), Oral, BID furosemide 20 mg Tab See Instructions insulin lispro 100 units/mL injectable solution , SubCutaneous mexiletine 200 mg Cap See Instructions midodrine 10 mg oral tablet 10 mg = 1 tab(s), Oral, TID orphenadrine 100 mg ER Tab See Instructions pramipexole 0.5 mg oral tablet 0.5 mg = 1 tab(s), Oral, TID pregabalin 50 mg Cap 50 mg = 1 cap(s), Oral, Daily silver sulfADIAZINE Top 1% Crm 20 gram See Instructions Trelegy Ellipta 100 mcg-62.5 mcg-25 mcg inhalation powder 1 puff(s), Inhalation, Daily Histories Past Medical History: Resolved Coronary artery disease ([id number]): Resolved. Type 2 diabetes mellitus (250.00): Resolved. Hypertension (77271814): Resolved. Hyperlipidemia ([id number]): Resolved. Family History: No family history items have been selected or recorded. Procedure history: No active procedure history items have been selected or recorded. Social History Social & Psychosocial Habits Alcohol 02/22/2013 Risk Assessment: Denies Alcohol Use Substance Abuse 02/22/2013 Risk Assessment: Denies Substance Abuse Tobacco 02/22/2013 Risk Assessment: Denies Tobacco Use . Objective Vital Signs (last 24 hrs) Last Charted Temp Oral 36.2 DegC (SEP 30:40) Heart Rate Monitored 68 bpm (SEP 30:40) Resp Rate 16 br/min (SEP 30:40) SBP 123 mmHg (SEP 30:40) DBP L 52 mmHg (SEP 30:40) Weight 64.2 kg (SEP 30 09:39) General: Alert and oriented, No acute distress. Respiratory: Lungs are clear to auscultation. Respiratory: Lungs are clear to auscultation. Cardiovascular: Normal rate, Regular rhythm, No edema, Right upper extremity fistula with thrill., +murmur. Gastrointestinal: Soft, Non-tender. Musculoskeletal Right foot dressing clean dry and intact. Neurologic: Alert. Psychiatric: Cooperative. Review / Management Results review: Lab results 10/01/2023 14:10 EDT Glucose Cap 126 mg/dL HI POC Device SN [id number] POC User ID [id number] POC Username MATILDA NELSON 10/01/2023 11:40 EDT Glucose Cap 128 mg/dL HI POC Device SN [id number] POC User ID [id number] POC Username AIJTH SAVAGE 10/01/2023 8:22 EDT Glucose Cap 119 mg/dL HI POC Device SN [id number] POC User ID [id number] POC Username GEORGE HRENANDEZ 10/01/2023 6:00 EDT WBC 7.4 E9/L RBC 3.5 E12/L LOW HGB 10.8 gm/dL LOW Hct 32.7 % LOW MCV 92.4 fL MCH 30.6 pg MCHC 33.2 gm/dL RDW 16.7 % HI Platelet 254.0 E9/L MPV 8.7 fL Neutro Auto 62.6 % Lymph Auto 19.6 % Bandera Auto 11.0 % Eos Auto 6.2 % Basophil Auto 0.6 % Neutro Absolute 4.6 E9/L Lymph Absolute 1.4 E9/L Bandera Absolute 0.8 E9/L Eos Absolute 0.5 E9/L Basophil Absolute 0.0 E9/L Glucose Lvl 139 mg/dL BUN 54 mg/dL HI Creatinine 5.1 mg/dL HI eGFR 8 mL/min/1.73 m2 LOW BUN/Creat Ratio 11 Sodium Lvl 133 mmol/L LOW Potassium Lvl 4.9 mmol/L Chloride 91 mmol/L LOW CO2 29 mmol/L AGAP 18 mEq/L HI Calcium Lvl 9.8 mg/dL Vanco Tr 17 mcg/mL 09/30/2023 21:06 EDT Glucose Cap 186 mg/dL HI POC Device SN [id number] POC User ID [id number] POC Username AJITH HERNANDEZ 09/30/2023 16:53 EDT Glucose Cap 114 mg/dL HI POC Device SN [id number] POC User ID [id number] POC Username MATILDA NELSON 09/30/2023 11:13 EDT Glucose Cap 127 mg/dL HI POC Device SN [id number] POC User ID [id number] POC Username NEPTALI SARAN 09/30/2023 7:23 EDT Glucose Cap 119 mg/dL HI POC Device SN [id number] POC User ID [id number] POC [facility] 09/30/2023 5:54 EDT WBC 7.8 E9/L RBC 3.7 E12/L LOW HGB 11.2 gm/dL LOW Hct 34.4 % MCV 92.4 fL MCH 30.1 pg MCHC 32.5 gm/dL RDW 16.7 % HI Platelet 261.0 E9/L MPV 8.3 fL Neutro Auto 66.9 % Lymph Auto 16.9 % Bandera Auto 10.4 % Eos Auto 5.4 % Basophil Auto 0.4 % Neutro Absolute 5.2 E9/L Lymph Absolute 1.3 E9/L Bandera Absolute 0.8 E9/L Eos Absolute 0.4 E9/L Basophil Absolute 0.0 E9/L Glucose Lvl 111 mg/dL BUN 35 mg/dL HI Creatinine 3.8 mg/ (more content not included)...[facility] Comment on above:Result Comment: Electronically Signed By: Elizabeth ARORA, Natalie\.marga\Date and Time Signed: 10/01/23 15:42 [id number] NoteProgress Note-Physician Basic Information 78-year-old female with CAD prior PCI, AICD, chronic respiratory failure on 3 l oxygen, COPD, HTN, HPL, DM, ESRD on dialysis at [facility] via fistula, GERD, anxiety/depression admitted 09/29/23 with osteomyelitis of right foot on IV abx and plans for OR today Assessment/Plan 1. Osteomyelitis of right foot (M86.9: Osteomyelitis, unspecified) Present on admission, failed out patient treatment Right foot XR: Fracture of distal aspect of first proximal phalanx possibly secondary to osteomyelitis. erosions of distal phalanx of great toe suggest osteomyelitis PVRs: Right and left KEYSHA normal at rest. Right foot MRI WO contrast -> unable to obtain at [facility] [place] due to AICD -IV Vanco/Cefepime in ER, continued -Pain control -Podiatry consulted: OR today recommended first ray amputation as an attempt at limb salvage -ID consulted: Maintain IV antibiotics for now, anticipate with all infection removed that short course of oral antibiotics on discharge should suffice 2. Cellulitis (L03.90: Cellulitis, unspecified) As above -IV abx -Bld cx NGTD -ID consultation, input appreciated 3. CAD in cheesh-na artery (I25.10: Atherosclerotic heart disease of cheesh-na coronary artery without angina pectoris) CAD with prior PCI -statin, no asa currently 4. Presence of automatic cardioverter/defibrillator (AICD) (Z95.810: Presence of automatic (implantable) cardiac defibrillator) AICD- no discharges -mexiletine oysterman use 5. Chronic respiratory failure (J96.10: Chronic respiratory failure, unspecified whether with hypoxia or hypercapnia) History of chronic respiratory failure on 3 L nasal cannula chronically -No acute exacerbation -Respiratory therapy protocol -Titrate o2 to keep sat > 92% 6. COPD mixed type (J44.9: Chronic obstructive pulmonary disease, unspecified) As above, nebs ordered PRN 7. Hypertension (I10: Essential (primary) hypertension) Blood pressure is actually normotensive, slightly hypotensive with dialysis -> midodrine 8. Hyperlipidemia (E78.5: Hyperlipidemia, unspecified) -atorvastatin 40 mg QD 9. Type 2 diabetes mellitus (E11.9: Type 2 diabetes mellitus without complications) AccuCheck AC/HS with SSI 10. ESRD on dialysis (N18.6: End stage renal disease) ESRD on HD on MWF in [place] -Nephrology consulted for HD while in-patient 11. Chronic GERD (K21.9: Gastro-esophageal reflux disease without esophagitis) Diet controlled 12. Anxiety and depression (F41.9: Anxiety disorder, unspecified) BuSpar 10 mg BID, citalopram 40 mg Orders: morphine, 2 mg = 1 mL, Injection, IV Push, Once, Stop date 10/01/23 11:00:00 EDT, Routine, Start date 10/01/23 11:00:00 EDT, 10/01/23 10:26:00 EDT vancomycin + Sodium Chloride 0.9% intravenous solution 100 mL, Reason for Vancomycin: Other reason documented in physician not, 500 mg = 1 EA, Injection, IV Piggyback, Once, Stop date 10/01/23 14:00:00 EDT, Start date 10/01/23 14:00:00 EDT, Infuse over 60 minute(s) Extra SST Tube HgbA1c Referral to Resource Center Referral to [facility] Vancomycin Level Trough Vancomycin Level Trough Patient continues to require inpatient status for IV antibiotics for treatment of osteomyelitis, failed outpatient therapy, plans for OR today Currently active with home PT/OT and anticipate continuation of this on DC FULL CODE DVT Prophylaxis: subQ Heparin (held for OR today) Subjective Great deal of pain to right foot, will give extra dose of morphine. No chest pain. No increased shortness of breath. Hemodynamically stable without events on telemetry. Patient is n.p.o. for surgery,no nausea or vomiting. Review of Systems Additional ROS info: Except as noted in the above Review of Systems and in the History of Present Illness all other systems have been reviewed and are negative or noncontributory Objective Vitals & Measurements T: 36.4 ?C(Axillary) TMIN: 36.3 ?C(Oral) TMAX: 36.6 ?C(Axillary) HR: 64(Monitored) RR: 16 BP: 123/45 SpO2: 99% HT: 162.56 cm WT: 64.2 kg Intake & Output This visit (24 hour periods starting at 07:00 EDT) 10/01/23 * 09/30/23 09/29/23 Total Summary Intake mL 2 1,058.2 55 Output mL -- -- -- Fluid Balance 2 1,058.2 55 Intake (6) Ensure mL -- 237 -- Oral Intake mL -- 200 -- Sodium Chloride 0.9% intravenous solution 1,000 mL mL -- 619.2 -- Sodium Chloride 0.9%, cefepime mL -- -- 50 morphine mL 2 2 3 ondansetron mL -- -- 2 Total 2 1,058.2 55 Output (0) Counts (0) * This column has not completed the indicated time period. Physical Exam General: thin elderly female,sitting up in chair, NAD Eyes: PERRLA, intact EOM HEENT: Mucous membrane pink, moist, Normal tongue. Neck: supple Lungs: Lungs with decreased air exchange, on 3 L chronically Cardio: Regular S1, S2, good perfusion Pulses: Normal capillary refill Abdomen: mildly-distended, soft non-tender (more content not included)...[facility]:Result Comment: Electronically Signed By: Yovani Ledbetter CNP\.br\Date and Time Signed: 10/01/23 12:35 EDT\.br\Electronically Co-Signed By: Armando Munroe DO\.br\Date and Time Co-Signed:10/01/23 14:23 [id number] NoteConsultation Note Patient: CINTHYA WILSON Age: 78 years Sex: Female : 1945 Associated Diagnoses: None Author: Julius Loyd DPM Subjective Chief complaint 09/29/2023 16:23 EDT infected toe 09/29/2023 12:[address] Loyd for right foot sore on great toe. pt states it is infected. . A 78-year-old female well known to me chief complaint of great right foot infection. Reports that this is been worsening over the last 3 days. She states that she was recently on antibiotics, and it seems like it did not help. Reports is the worst it ever been. She was being treated for nonhealing wound at the IPJ of the great toe right foot. Was progressing well prior to her last visit at the wound care center she dropped an ice tray on the toe worsening the issue. Plain film radiographs reveal fracture of the distal phalanx with osteomyelitis of the great toe. She Reports redness increasinginto her foot. Health Status Allergies: Allergic Reactions (Selected) Severity Not Documented Gabapentin- Tongue swelling. Lisinopril- Cough., Allergies (2) Active Severity Reaction lisinopril Cough gabapentin Tongue swelling Current medications: (Selected) Inpatient Medications Ordered Dextrose 50% Soln-IV: 50 mL, Soln-IV, IV Push, Once PRN Blood glucose, Routine, Start date 09/29/2415:35:00 EDT Ensure Enlive Chocolate 237 mL: 237 mL, Liquid, Oral, BIDWM, Routine, Start date 09/30/23 17:00:00 EDT, Over Ice Insulin Lispro Sliding Scale: 0-10 Unit(s), Injection-Insulin, SubCutaneous, QIDACHS, Routine, Start date 09/29/23 21:00:00 EDT Percocet 5 mg-325 mg oral tablet: 1 tab(s), Tab, Oral, q6hr PRN Pain, Routine, Start date 09/30/23 11:38:00 EDT acetaminophen 325 mg Tab: 650 mg = 2 tab(s), Tab, Oral, q6hr PRN Pain, Routine, Start date 09/28/2414:42:00 EDT, 09/29/23 15:42:00 EDT atorvastatin 40 mg Tab: 40 mg = 1 tab(s), Tab, Oral, Daily, Routine, Start date 09/30/23 9:00:00 EDT, 09/29/23 22:03:00 EDT busPIRone 10 mg Tab: 10 mg = 1 tab(s), Tab, Oral, BID, Routine, Start date 09/29/23 22:03:00 EDT, 09/29/23 22:03:00 EDT cefepime + Sodium Chloride 0.9% intravenous solution 50 mL: 1,000 mg = 1 EA, Injection, IV Piggyback, q24hr, Start date 10/01/23 15:00:00 EDT, 100 mL/hr, Infuse over 30 minute(s) citalopram: 40 mg = 2 tab(s), Tab, Oral, Daily for 30 day(s), Stop date 10/30/23 8:59:00 EDT, Startdate 09/30/23 9:00:00 EDT docusate sodium 100 mg Cap: 100 mg = 1 cap(s), Cap, Oral, BID, Routine, Start date 09/30/23 9:00:00EDT, 09/29/23 22:04:00 EDT heparin 5000 units/mL Inj: 5,000 unit(s) = 1 mL, Injection, SubCutaneous, BID for 30 day(s), Stop date 10/29/23 20:59:00 EDT, Routine, Start date 09/29/23 21:00:00 EDT, 09/29/23 15:42:00 EDT mexiletine 150 mg Cap: 200 mg, Cap, Oral, q8hr, Routine, Start date 09/29/23 23:00:00 EDT, 09/28/2421:04:00 EDT midodrine 5 mg Tab: 10 mg = 2 tab(s), Tab, Oral, TID, Routine, Start date 09/29/23 22:06:00 EDT, 09/29/23 22:06:00 EDT morphine 2 mg/mL Inj: 2 mg = 1 mL, Injection, IV Push, q4hr PRN Pain for 5 day(s), Stop date 10/04/23 15:41:00 EDT, Routine, Start date 09/29/23 15:42:00 EDT, 09/29/23 15:42:00 EDT pramipexole 0.25 mg Tab: 0.5 mg = 2 tab(s), Tab, Oral, TID, Routine, Start date 09/29/23 22:06:00 EDT, 09/29/23 22:06:00 EDT pregabalin 50 mg Cap: 50 mg = 1 cap(s), Cap, Oral, Daily, Routine, Start date 09/30/23 9:00:00 EDT,09/29/23 22:07:00 EDT vancomycin IV PHARMACY TO DOSE: PHARMACY TO DOSE, Injection, IV, As Directed, Routine, Start date 09/29/23 15:38:00 EDT Documented Medications Documented Trelegy Ellipta 100 mcg-62.5 mcg-25 mcg inhalation powder: = 1 puff(s), Inhalation, Daily, Refills(s) 0 acetaminophen-oxycodone 325 mg-5 mg Tab: See Instructions, Refill(s) 0, 1 tab(s) Oral ammonium lactate Top 12% Lotion: 1 deborah, Topical, Refill(s) 0 atorvastatin 40 mg Tab: 40 mg = 1 tab(s), Oral, Daily, Refills(s) 0 bisoprolol 10 mg Tab: 10 mg = 1 tab(s), Oral, Daily, Refills(s) 0 busPIRone 10 mg Tab: 10 mg = 1 tab(s), Oral, BID, Refills(s) 0 calcium acetate 667 mg oral capsule: 2,001 mg = 3 cap(s), Oral, QID, Refills(s) 0 cephalexin 250 mg Cap: See Instructions, 1 cap(s) Oral, Refills(s) 0 citalopram 40 mg Tab: See Instructions, 1 tab(s), Refills(s) 0 cyclobenzaprine 10 mg Tab: 10 mg = 1 tab(s), Oral, TID, Refills(s) 0 docusate sodium 100 mg Cap: 100 mg = 1 cap(s), Oral, BID, Refills(s) 0 furosemide 20 mg Tab: See Instructions, 1 tab(s), Refills(s) 0 insulin lispro 100 units/mL injectable solution: SubCutaneous, Refills(s) 0 mexiletine 200 mg Cap: See Instructions, 1 cap(s) Oral q8hr, Refills(s) 0 midodrine 10 mg oral tablet: 10 mg = 1 tab(s), Oral, TID, Refills(s) 0 orphenadrine 100 mg ER Tab: See Instructions, 1 tab(s) Oral, Refills(s) 0 pramipexole 0.5 mg oral tablet: 0.5 mg = 1 tab(s), Oral, TID, Refills(s) 0 pregabalin 50 mg Cap: 50 mg = 1 cap(s), Oral, Daily, Refills(s) 0 silver sulfADIAZINE Top 1% Crm 20 gram: See Instructions, Refill(s) 0, 1 deborah To (more content not included)...[facility]:Result Comment: Electronically Signed By: Stephan Loyd DPM\Date and Time Signed: 10/01/23 11:52 [id number] NoteProgress Note - Pharmacy Indication: Skin and Skin Structure Infection Goal Range:Trough: 10 - 20 RECOMMENDATIONS PLAN: Pharmacy consulted for vancomycin dosing for CINTHYA WILSON, a 78 Years, Female who is being treated with vancomycin for skin and soft tissue. 1. VANCO STATUS Vancomycin therapy is still active, today is day 3 of treatment. 2. VANCO LEVEL The most recent vanco level was 17 mcg/mL drawn at 0600 on 09/30. Last dose 1250 mg 09/28 @ 7093 3. DOSING RECS (Other comments)Will give 500 mg post HD today and recheck level 10/02 for a preHD 4. NEXT LEVELThe next level is scheduled for 0600 on 09/30. 5. MRSA NASAL SWAB A MRSA NASAL swab is not appropriate at this time... We will follow patient renal function, vancomycin levels and doses with you during the course of therapy. Additional recommendations will appear in follow up notes. If you have any question please contact pharmacy. Age: 78 Years Allergies: gabapentin; lisinopril Weight Last Documented Weight and Type of Scale Used Last Documented Weight Weight Measured: 64.2 kg (10/01/23 09:39:00) Type of Scale Used Weight Measured Type of Scale: Bed Scale (digital) (09/29/23 16:54:00) Height Last Documented Height/Length Last Documented Height/Length Height/Length Measured: 162.56 cm (10/01/23 09:39:00) CrCl: 8 mL/min scr 5.1 Labs: WBC: 7.4 E9/L (10/01/23 06:00:00) RBC: 3.5 E12/L Low (10/01/23 06:00:00) HGB: 10.8 gm/dL Low (10/01/23 06:00:00) Hct: 32.7 % Low (10/01/23 06:00:00) MCV: 92.4 fL (10/01/23 06:00:00) MCH: 30.6 pg (10/01/23 06:00:00) MCHC: 33.2 gm/dL (10/01/23 06:00:00) RDW: 16.7 % High (10/01/23 06:00:00) Platelet: 254 E9/L (10/01/23 06:00:00) MPV: 8.7 fL (10/01/23 06:00:00) Neutro Auto: 62.6 % (10/01/23 06:00:00) Lymph Auto: 19.6 % (10/01/23 06:00:00) Bandera Auto: 11 % (10/01/23 06:00:00) Eos Auto: 6.2 % (10/01/23 06:00:00) Basophil Auto: 0.6 % (10/01/23 06:00:00) Neutro Absolute: 4.6 E9/L (10/01/23 06:00:00) Lymph Absolute: 1.4 E9/L (10/01/23 06:00:00) Bandera Absolute: 0.8 E9/L (10/01/23 06:00:00) Eos Absolute: 0.5 E9/L (10/01/23 06:00:00) Basophil Absolute: 0 E9/L (10/01/23 06:00:00) Glucose Lvl: 139 mg/dL (10/01/23 06:00:00) BUN: 54 mg/dL High (10/01/23 06:00:00) Creatinine: 5.1 mg/dL High (10/01/23 06:00:00) eGFR: 8 mL/min/1.73 m2 Low (10/01/23 06:00:00) BUN/Creat Ratio: 11 (10/01/23 06:00:00) Sodium Lvl: 133 mmol/L Low (10/01/23 06:00:00) Potassium Lvl: 4.9 mmol/L (10/01/23 06:00:00) Chloride: 91 mmol/L Low (10/01/23 06:00:00) CO2: 29 mmol/L (10/01/23 06:00:00) AGAP: 18 mEq/L High (10/01/23 06:00:00) Calcium Lvl: 9.8 mg/dL (10/01/23 06:00:00) Vanco Tr: 17 mcg/mL (10/01/23 06:00:00) Glucose Cap: 119 mg/dL High (10/01/23 08:22:00) POC Device SN: [id number] (10/01/23 08:22:00) POC User ID: [id number] (10/01/23 08:22:00) POC Username: GEORGE HERNANDEZ (10/01/23 08:22:00)[facility] 10-01-2023 NoteProgress Note - Pharmacy Indication: Empiric TreatmentAspiration pneumonia? Goal Range:AUC/TRINITY: 400 - 600 RECOMMENDATIONS PLAN: Pharmacy consulted for vancomycin dosing for CINTHYA WILSON, a 78 Years, Female who is being treated with vancomycin for Aspiration pneumonia?. 1. VANCO STATUS Vancomycin therapy is still active, today is day 1 of treatment. Patient is receiving Vanco 1000 mg IV [id number] w/ 1500 mg in ED @ 0400 09/30 2. VANCO LEVEL _New start 3. DOSING RECS _Will dose 1000 mg q12hr 4. NEXT LEVELThe next paired levels are schedule. Peak at 0600 on 10/02 and Trough at 1500 on 10/02. 5. MRSA NASAL SWAB A MRSA Nasal swab is appropriate and has...has been ordered. We will follow patient renal function, vancomycin levels and doses with you during the course of therapy. Additional recommendations will appear in follow up notes. If you have any question please contact pharmacy. Age: 78 Years Allergies: gabapentin; lisinopril Weight Last Documented Weight and Type of Scale Used Last Documented Weight Weight Measured: 64.2 kg (10/01/23 06:50:00) Type of Scale Used Weight Measured Type of Scale: Bed Scale (digital) (09/29/23 16:54:00) Height Last Documented Height/Length Last Documented Height/Length Height/Length Measured: 162.56 cm (09/29/23 16:54:00) CrCl: 70 mL/min 0.8 Labs: WBC: 7.4 E9/L (10/01/23 06:00:00) RBC: 3.5 E12/L Low (10/01/23 06:00:00) HGB: 10.8 gm/dL Low (10/01/23 06:00:00) Hct: 32.7 % Low (10/01/23 06:00:00) MCV: 92.4 fL (10/01/23 06:00:00) MCH: 30.6 pg (10/01/23 06:00:00) MCHC: 33.2 gm/dL (10/01/23 06:00:00) RDW: 16.7 % High (10/01/23 06:00:00) Platelet: 254 E9/L (10/01/23 06:00:00) MPV: 8.7 fL (10/01/23 06:00:00) Neutro Auto: 62.6 % (10/01/23 06:00:00) Lymph Auto: 19.6 % (10/01/23 06:00:00) Bandera Auto: 11 % (10/01/23 06:00:00) Eos Auto: 6.2 % (10/01/23 06:00:00) Basophil Auto: 0.6 % (10/01/23 06:00:00) Neutro Absolute: 4.6 E9/L (10/01/23 06:00:00) Lymph Absolute: 1.4 E9/L (10/01/23 06:00:00) Bandera Absolute: 0.8 E9/L (10/01/23 06:00:00) Eos Absolute: 0.5 E9/L (10/01/23 06:00:00) Basophil Absolute: 0 E9/L (10/01/23 06:00:00) Glucose Cap: 186 mg/dL High (09/30/23 21:06:00) POC Device SN: [id number] (09/30/23 21:06:00) POC User ID: [id number] (09/30/23 21:06:00) POC Username: AJITH HERNANDEZ (09/30/23 21:06:00)[facility]:Other Comment: wrong chart note filed [id number] NoteConsultation Note Patient: CINTHYA WILSON Age: 78 years Sex: Female : 1945 Associated Diagnoses: None Author: Tayla Hall CNP Basic Information Requesting Provider: Hospitalist Reason For Request: ESRD on HD History of Present Illness 78 yo WF with PMH ESRD on HD, HTN, HLD, DM II, & MRSA presented to the ED with c/o right foot pain. She had HD at [facility] prior to coming to the ED yesterday. Right foot x-ray reports interval development of fracture of the distal aspect of the first proximal phalanx, possibly secondaryto osteomyelitis. Erosions of distal phalanx of the great toe suggest osteomyelitis again identified. Dr Loyd, podiatry, has been managing her car in the OP setting. Nephrology has been consulted for ESRD management. Review of Systems Constitutional: Negative. Eye: Negative. Ear/Nose/Mouth/Throat: Negative. Respiratory: Negative. Cardiovascular: Negative. Gastrointestinal: Negative. Genitourinary: Negative except as documented in history of present illness. Hematology/Lymphatics: Negative. Endocrine: Negative. Immunologic: Negative. Musculoskeletal: Negative. Integumentary: Rt foot wound. Neurologic: Negative. Psychiatric: Negative. Health Status Allergies: Allergic Reactions (Selected) Severity Not Documented Gabapentin- Tongue swelling. Lisinopril- Cough., Allergies (2) Active Severity Reaction lisinopril Cough gabapentin Tongue swelling Current medications: (Selected) Inpatient Medications Ordered Dextrose 50% Soln-IV: 50 mL, Soln-IV, IV Push, Once PRN Blood glucose, Routine, Start date 09/29/2415:35:00 EDT Insulin Lispro Sliding Scale: 0-10 Unit(s), Injection-Insulin, SubCutaneous, QIDACHS, Routine, Start date 09/29/23 21:00:00 EDT Percocet 5 mg-325 mg oral tablet: 1 tab(s), Tab, Oral, q6hr PRN Pain, Routine, Start date 09/30/23 11:38:00 EDT acetaminophen 325 mg Tab: 650 mg = 2 tab(s), Tab, Oral, q6hr PRN Pain, Routine, Start date 09/28/2414:42:00 EDT, 09/29/23 15:42:00 EDT atorvastatin 40 mg Tab: 40 mg = 1 tab(s), Tab, Oral, Daily, Routine, Start date 09/30/23 9:00:00 EDT, 09/29/23 22:03:00 EDT busPIRone 10 mg Tab: 10 mg = 1 tab(s), Tab, Oral, BID, Routine, Start date 09/29/23 22:03:00 EDT, 09/29/23 22:03:00 EDT cefepime + Sodium Chloride 0.9% intravenous solution 50 mL: 1,000 mg = 1 EA, Injection, IV Piggyback, q24hr, Start date 10/01/23 15:00:00 EDT, 100 mL/hr, Infuse over 30 minute(s) citalopram: 40 mg = 2 tab(s), Tab, Oral, Daily for 30 day(s), Stop date 10/30/23 8:59:00 EDT, Startdate 09/30/23 9:00:00 EDT docusate sodium 100 mg Cap: 100 mg = 1 cap(s), Cap, Oral, BID, Routine, Start date 09/30/23 9:00:00EDT, 09/29/23 22:04:00 EDT heparin 5000 units/mL Inj: 5,000 unit(s) = 1 mL, Injection, SubCutaneous, BID for 30 day(s), Stop date 10/29/23 20:59:00 EDT, Routine, Start date 09/29/23 21:00:00 EDT, 09/29/23 15:42:00 EDT mexiletine 150 mg Cap: 200 mg, Cap, Oral, q8hr, Routine, Start date 09/29/23 23:00:00 EDT, 09/28/2421:04:00 EDT midodrine 5 mg Tab: 10 mg = 2 tab(s), Tab, Oral, TID, Routine, Start date 09/29/23 22:06:00 EDT, 09/29/23 22:06:00 EDT morphine 2 mg/mL Inj: 2 mg = 1 mL, Injection, IV Push, q4hr PRN Pain for 5 day(s), Stop date 10/04/23 15:41:00 EDT, Routine, Start date 09/29/23 15:42:00 EDT, 09/29/23 15:42:00 EDT pramipexole 0.25 mg Tab: 0.5 mg = 2 tab(s), Tab, Oral, TID, Routine, Start date 09/29/23 22:06:00 EDT, 09/29/23 22:06:00 EDT pregabalin 50 mg Cap: 50 mg = 1 cap(s), Cap, Oral, Daily, Routine, Start date 09/30/23 9:00:00 EDT,09/29/23 22:07:00 EDT vancomycin IV PHARMACY TO DOSE: PHARMACY TO DOSE, Injection, IV, As Directed, Routine, Start date 09/29/23 15:38:00 EDT Documented Medications Documented Trelegy Ellipta 100 mcg-62.5 mcg-25 mcg inhalation powder: = 1 puff(s), Inhalation, Daily, Refills(s) 0 acetaminophen-oxycodone 325 mg-5 mg Tab: See Instructions, Refill(s) 0, 1 tab(s) Oral ammonium lactate Top 12% Lotion: 1 deborah, Topical, Refill(s) 0 atorvastatin 40 mg Tab: 40 mg = 1 tab(s), Oral, Daily, Refills(s) 0 bisoprolol 10 mg Tab: 10 mg = 1 tab(s), Oral, Daily, Refills(s) 0 busPIRone 10 mg Tab: 10 mg = 1 tab(s), Oral, BID, Refills(s) 0 calcium acetate 667 mg oral capsule: 2,001 mg = 3 cap(s), Oral, QID, Refills(s) 0 cephalexin 250 mg Cap: See Instructions, 1 cap(s) Oral, Refills(s) 0 citalopram 40 mg Tab: See Instructions, 1 tab(s), Refills(s) 0 cyclobenzaprine 10 mg Tab: 10 mg = 1 tab(s), Oral, TID, Refills(s) 0 docusate sodium 100 mg Cap: 100 mg = 1 cap(s), Oral, BID, Refills(s) 0 furosemide 20 mg Tab: See Instructions, 1 tab(s), Refills(s) 0 insulin lispro 100 units/mL injectable solution: SubCutaneous, Refills(s) 0 mexiletine 200 mg Cap: See Instructions, 1 cap(s) Oral q8hr, Refills(s) 0 midodrine 10 mg oral tablet: 10 mg = 1 tab(s), Oral, TID, Refills(s) 0 orphenadrine 100 mg ER Tab: See Instructions, 1 tab(s) Oral, Refills(s) 0 pramipexole 0.5 mg oral (more content not included)...[facility]:Result Comment: Electronically Signed By: Tayla Hall CNP.br\Date and Time Signed: 09/30/23 12:54 EDT\.br\Electronically Co-Signed By: Vianca Johnson MD.br\Date and Time Co-Signed: 09/30/23 17:14 [id number] NoteProgress Note-Physician Basic Information 78-year-old female with CAD prior PCI, AICD, chronic respiratory failure on supplemental oxygen, COPD, hypertension, hyperlipidemia, diabetes, end-stage renal disease on dialysis at [facility] via fistula, GERD, anxiety/depression admitted with osteomyelitis of right foot Assessment/Plan 1. Osteomyelitis of right foot (M86.9: Osteomyelitis, unspecified) Present on admission, follows with Dr. Loyd as out patient Right foot XR: Fracture of distal aspect of first proximal phalanx possibly secondary to osteomyelitis. erosions of distal phalanx of great toe suggest osteomyelitis PVRs completed, results pending Right foot MRI WO contrast pending -> staff should be able to complete pending further ICD info per protocol -IV Vanco/Cefepime in ER, continued -Pain control -ER provider notified Dr Loyd of admit/consult -> updated Dr Loyd who will see patient this afternoon 2. Cellulitis (L03.90: Cellulitis, unspecified) As above -IV abx -Bld cx pending -ID consultation 3. CAD in cheesh-na artery (I25.10: Atherosclerotic heart disease of cheesh-na coronary artery without angina pectoris) CAD with prior PCI -statin, no asa currently 4. Presence of automatic cardioverter/defibrillator (AICD) (Z95.810: Presence of automatic (implantable) cardiac defibrillator) AICD- no discharges -MRI staff will assess compatibility, interrogation per protocol if able to get MRI 5. Chronic respiratory failure (J96.10: Chronic respiratory failure, unspecified whether with hypoxia or hypercapnia) History of chronic respiratory failure on 3 L nasal cannula chronically -No acute exacerbation -Respiratory therapy protocol -Titrate o2 to keep sat > 92% 6. COPD mixed type (J44.9: Chronic obstructive pulmonary disease, unspecified) As above, nebs ordered PRN 7. Hypertension (I10: Essential (primary) hypertension) Blood pressure is actually normotensive, slightly hypotensive with dialysis 8. Hyperlipidemia (E78.5: Hyperlipidemia, unspecified) -atorvastatin 40 mg QD 9. Type 2 diabetes mellitus (E11.9: Type 2 diabetes mellitus without complications) AccuCheck AC/HS with SSI 10. ESRD on dialysis (N18.6: End stage renal disease) ESRD on HD on MWF in [place], had treatment today -Consult nephrology for HD management while admitted 11. Chronic GERD (K21.9: Gastro-esophageal reflux disease without esophagitis) Diet controlled 12. Anxiety and depression (F41.9: Anxiety disorder, unspecified) BuSpar 10 mg twice daily, citalopram Orders: acetaminophen, 650 mg = 2 tab(s), Tab, Oral, q6hr PRN Pain, Routine, Start date 09/29/23 15:42:00 EDT, 09/29/23 15:42:00 EDT cefepime + Sodium Chloride 0.9% intravenous solution 50 mL, 1,000 mg = 1 EA, Injection, IV Piggyback, q24hr, Start date 10/01/23 15:00:00 EDT, 100 mL/hr, Infuse over 30 minute(s) glucose, 50 mL, Soln-IV, IV Push, Once PRN Blood glucose, Routine, Start date 09/29/23 16:35:00 EDT heparin, 5,000 unit(s) = 1 mL, Injection, SubCutaneous, BID for 30 day(s), Stop date 10/29/23 20:59:00 EDT, Routine, Start date 09/29/23 21:00:00 EDT, 09/29/23 15:42:00 EDT insulin lispro, 0-10 Unit(s), Injection-Insulin, SubCutaneous, QIDACHS, Routine, Start date 09/29/23 21:00:00 EDT mexiletine, 150 mg = 1 cap(s), Cap, Oral, Once, Stop date 09/30/23 9:00:00 EDT, Start date 249:00:00 EDT morphine, 2 mg = 1 mL, Injection, IV Push, q4hr PRN Pain for 5 day(s), Stop date 10/04/23 15:41:00 EDT, Routine, Start date 09/29/23 15:42:00 EDT, 09/29/23 15:42:00 EDT vancomycin, PHARMACY TO DOSE, Injection, IV, As Directed, Routine, Start date 09/29/23 15:38:00 EDT Ambulate with Assistance Basic Metabolic Panel Bedside Commode Below the Knee Intermittent Pneumatic Compression Device Cardiac Monitoring CBC w/ Auto Diff Consult to Infectious Disease Physician Consult to Nephrology Diabetic/Calorie Control Diet eGFR Evaluate Need For Continued Telemetry HgbA1c Hypoglycemia Protocol Responsive Patient Hypoglycemia Protocol Unresponsive Patient Intake and Output MRI Foot w/o Contrast Right Notify Provider Vital Signs Notify Provider Vital Signs Oxygen Protocol Precautions Pulse Oximetry Respiratory Protocol Resuscitation Status - Full Routine Capillary Glucose POC Saline Lock Convert From IV US PVR Lower EXT Complete Bilat Vancomycin Level Trough Vital Signs Weight Patient continues to require inpatient status for IV antibiotics for management of her osteomyelitis, awaiting further imaging and recommendations from specialist Full code DVT prophylaxis SubQ Heparin Subjective Pain fairly well controlled. No CP or SOB. No N/V/D Review of Systems Additional ROS info: Except as noted in the above Review of Systems and in the History of Present Illness all other systems have been reviewed and are negative or noncontributory Objective Vitals & Measurements T: 37 ?C(Axillary) TMIN: 36.4 ?C(Oral) TMAX: 37 ?C(Axillary (more content not included)...[facility]Comment on above:Result Comment: Electronically Signed By: Yovani Ledbetter CNP\.br\Date and Time Signed: 09/30/23 11:42 EDT\.br\Electronically Co-Signed By: Armando Munroe DO\.br\Date and Time Co-Signed:09/30/23 14:04 [id number] Evaluation + Plan noteExtracted from: Title:Podiatric surgery Author:Julius Loyd DPM Date:09/30/23 Patient: CINTHYA WILSON Age: 78 years Sex: Female : 1945 Associated Diagnoses: None Author: Julius Loyd DPM Subjective Chief complaint 09/29/2023 16:23 EDT infected toe 09/29/2023 12:[address] Loyd for right foot sore on great toe. pt states it is infected. . A 78-year-old female well known to me chief complaint of great right foot infection. Reports that this is been worsening over the last 3 days. She states that she was recently on antibiotics, and it seems like it did not help. Reports is the worst it ever been. She was being treated for nonhealing wound at the IPJ of the great toe right foot. Was progressing well prior to her last visit at the wound care center she dropped an ice tray on the toe worsening the issue. Plain film radiographs reveal fracture of the distal phalanx with osteomyelitis of the great toe. She Reports redness increasing into her foot. Health Status Allergies: Allergic Reactions (Selected) Severity Not Documented Gabapentin- Tongue swelling. Lisinopril- Cough., Allergies (2) ActiveSeverityReaction lisinoprilCough gabapentinTongue swelling Current medications: (Selected) Inpatient Medications Ordered Dextrose 50% Soln-IV: 50 mL, Soln-IV, IV Push, Once PRN Blood glucose, Routine, Start date 09/29/23 16:35:00 EDT Ensure Enlive Chocolate 237 mL: 237 mL, Liquid, Oral, BIDWM, Routine, Start date 09/30/23 17:00:00 EDT, Over Ice Insulin Lispro Sliding Scale: 0-10 Unit(s), Injection-Insulin, SubCutaneous, QIDACHS, Routine, Start date 09/29/23 21:00:00 EDT Percocet 5 mg-325 mg oral tablet: 1 tab(s), Tab, Oral, q6hr PRN Pain, Routine, Start date 09/30/23 11:38:00 EDT acetaminophen 325 mg Tab: 650 mg = 2 tab(s), Tab, Oral, q6hr PRN Pain, Routine, Start date 09/29/23 15:42:00 EDT, 09/29/23 15:42:00 EDT atorvastatin 40 mg Tab: 40 mg = 1 tab(s), Tab, Oral, Daily, Routine, Start date 09/30/23 9:00:00 EDT, 09/29/23 22:03:00 EDT busPIRone 10 mg Tab: 10 mg = 1 tab(s), Tab, Oral, BID, Routine, Start date 09/29/23 22:03:00 EDT, 09/29/23 22:03:00 EDT cefepime + Sodium Chloride 0.9% intravenous solution 50 mL: 1,000 mg = 1 EA, Injection, IV Piggyback, q24hr, Start date 10/01/23 15:00:00 EDT, 100 mL/hr, Infuse over 30 minute(s) citalopram: 40 mg = 2 tab(s), Tab, Oral, Daily for 30 day(s), Stop date 10/30/23 8:59:00 EDT, Start date 09/30/23 9:00:00 EDT docusate sodium 100 mg Cap: 100 mg = 1 cap(s), Cap, Oral, BID, Routine, Start date 09/30/23 9:00:00 EDT, 09/29/23 22:04:00 EDT heparin 5000 units/mL Inj: 5,000 unit(s) = 1 mL, Injection, SubCutaneous, BID for 30 day(s), Stop date 10/29/23 20:59:00 EDT, Routine, Start date 09/29/23 21:00:00 EDT, 09/29/23 15:42:00 EDT mexiletine 150 mg Cap: 200 mg, Cap, Oral, q8hr, Routine, Start date 09/29/23 23:00:00 EDT, 09/29/23 22:04:00 EDT midodrine 5 mg Tab: 10 mg = 2 tab(s), Tab, Oral, TID, Routine, Start date 09/29/23 22:06:00 EDT, 09/29/23 22:06:00 EDT morphine 2 mg/mL Inj: 2 mg = 1 mL, Injection, IV Push, q4hr PRN Pain for 5 day(s), Stop date 10/04/23 15:41:00 EDT, Routine, Start date 09/29/23 15:42:00 EDT, 09/29/23 15:42:00 EDT pramipexole 0.25 mg Tab: 0.5 mg = 2 tab(s), Tab, Oral, TID, Routine, Start date 09/29/23 22:06:00 EDT, 09/29/23 22:06:00 EDT pregabalin 50 mg Cap: 50 mg = 1 cap(s), Cap, Oral, Daily, Routine, Start date 09/30/23 9:00:00 EDT, 09/29/23 22:07:00 EDT vancomycin IV PHARMACY TO DOSE: PHARMACY TO DOSE, Injection, IV, As Directed, Routine, Start date 09/29/23 15:38:00 EDT Documented Medications Documented Trelegy Ellipta 100 mcg-62.5 mcg-25 mcg inhalation powder: = 1 puff(s), Inhalation, Daily, Refills(s) 0 acetaminophen-oxycodone 325 mg-5 mg Tab: See Instructions, Refill(s) 0, 1 tab(s) Oral ammonium lactate Top 12% Lotion: 1 deborah, Topical, Refill(s) 0 atorvastatin 40 mg Tab: 40 mg = 1 tab(s), Oral, Daily, Refills(s) 0 bisoprolol 10 mg Tab: 10 mg = 1 tab(s), Oral, Daily, Refills(s) 0 busPIRone 10 mg Tab: 10 mg = 1 tab(s), Oral, BID, Refills(s) 0 calcium acetate 667 mg oral capsule: 2,001 mg = 3 cap(s), Oral, QID, Refills(s) 0 cephalexin 250 mg Cap: See Instructions, 1 cap(s) Oral, Refills(s) 0 citalopram 40 mg Tab: See Instructions, 1 tab(s), Refills(s) 0 cyclobenzaprine 10 mg Tab: 10 mg = 1 tab(s), Oral, TID, Refills(s) 0 docusate sodium 100 mg Cap: 100 mg = 1 cap(s), Oral, BID, Refills(s) 0 furosemide 20 mg Tab: See Instructions, 1 tab(s), Refills(s) 0 insulin lispro 100 units/mL injectable solution: SubCutaneous, Refills(s) 0 mexiletine 200 mg Cap: See Instructions, 1 cap(s) Oral q8hr, Refills(s) 0 midodrine 10 mg oral tablet: 10 mg = 1 tab(s), Oral, TID, Refills(s) 0 orphenadrine 100 mg ER Tab: See Instructions, 1 tab(s) Oral, Refills(s) 0 pramipexole 0.5 mg oral tablet: 0.5 mg = 1 tab(s), Oral, TID, Refills(s) 0 pregabalin 50 mg Cap: 50 mg = 1 cap(s), Oral, Daily, Refills(s) 0 silver sulfADIAZINE Top 1% Crm 20 gram: See Instructions, Refill(s) 0, 1 deborah Topical Problem list: All Problems MRSA (methicillin resistant staph aureus) culture positive / SNOMED CT 7337495747 / Confirmed Rt great toe abscess Methicillin-Resistant Staphylococcus MRSA+ Transportation insecurity / SNOMED CT [id number] / Possible Problem added automatically by Discern Expert based on clinical documentation, Active Problems (2) MRSA (methicillin resistant staph aureus) culture positive Transportation insecurity Objective Measurements from flowsheet : Measurements 09/30/2023 5:00 EDT Weight Measured 66.6 kg 09/29/2023 16:54 EDT Height/Length Measured 162.56 cm BSA Measured 1.73 m2 Body Mass Index Measured 25.2 kg/m2 Weight Measured 66.6 kg 09/29/2023 16:23 EDT Height/Length Measured 163 cm Body Mass Index Measured 22.96 kg/m2 Weight Measured 61 kg 09/29/2023 12:51 EDT Height/Length Measured 163 cm Height/Length Dosing 163.0 cm Weight Dosing 61.0 kg Body Mass Index Measured 22.96 kg/m2 Weight Measured 61 kg No qualifying data available General: Alert and oriented. Cardiovascular: Dorsalis pedis and posterior tibial pulses were barely palpable. Lymphatics: No lymphadenopathy noted. Musculoskeletal Severe macrodactyly of the right great toe secondary to infection.. Integumentary: Significant mottling of the right great toe with serosanguineous fluid oozing from the IPJ of the great toe. Central ulceration does probe to bone. Localized erythema to the MPJ. No crepitus noted in the soft tissue. Psychiatric: Cooperative. Results Review Reason For Exam Pain, Non Traumatic POWERSCRIBE REPORT IMPRESSION: INTERVAL DEVELOPMENT OF A FRACTURE OF THE DISTAL ASPECT OF THE FIRST PROXIMAL PHALANX POSSIBLY SECONDARY TO OSTEOMYELITIS. EROSIONS OF THE DISTAL PHALANX OF THE GREAT TOE SUGGESTING OSTEOMYELITIS ARE AGAIN IDENTIFIED. EXAM: XR Foot 3+ Views Right COMPARISON: Radiographs 09/16/2023 HISTORY: Foot pain TECHNIQUE: AP, lateral and oblique views of the foot obtained. FINDINGS: Osseous erosions of the distal phalanx of the great toe are again identified. There is now a mildly displaced fracture of the distal aspect of the proximal phalanx of the great toe. Chronic appearing deformity of the base of the fifth metatarsal. Mild degenerative changes of the midfoot. Decreased bone mineralization. Atherosclerotic vascular calcifications. Ordering Provider: Zackary Steve Signature Line FINAL REPORT Dictated: 09/29/2023 2:50 pm Yamileth Astorga DO Signed (Electronic Signature): 09/29/2023 2:50 pm Signed by: Yamileth Astorga DO Transcribed by: YENIFER Technologist: AGUSTIN Impression and Plan I educated the patient on my clinical and radiographic findings. At this point the infection appears to be limited to the right great toe and the right first metatarsal phalangeal joint. I recommended at this time a first ray amputation as an attempt at limb salvage. I discussed her peripheral arterial disease I discussed nonhealing of the wound. My concern at this point is the spread of the infection more proximally which will require more proximal amputation possibly even loss of limb. Patient understood the possible risks and complications surgically tomorrow with Dr. Stephan loyd who is familiar with the patient and her clinical history. Risks and possible complications for surgery were explained including pain swelling numbness ting infection need for additional surgery nonhealing wound more proximally rotation loss of limb she understands that this is an attempt at limb salvage surgery will be tomorrow at 1230 should be n.p.o. at midnight. Appreciate Dr. Singleton's input in terms of antibiotics postoperatively Addendum by Julius Loyd DPM on September 30, 2023 15:06 EDT update Addendum by Xuan Loyd DPM on October 01, 2023 11:52 EDT I agree with the above surgical plan as noted above 1st ray amputation right Future Appointments Appointment Date:10/21/2023 01:30:00 PM Scheduled Provider:Julius Loyd DPM Location[facility] Appointment Type: Follow Up Visit (FT) [facility] 08-20-2024 NoteConsultation Note Patient: CINTHYA WILSON Age: 78 years Sex: Female : 1945 Associated Diagnoses: None Author: Pennie Singleton M.D Chief Complaint 09/29/2023 16:23 EDT infected toe 09/29/2023 12:[address] Loyd for right foot sore on great toe. pt states it is infected. History of Present Illness Cinthya Wilson is a 78-year-old female with a history of diabetes and end-stage renal disease. She receives dialysis at [place] via fistula. She has been following with Dr. Loyd for a right hallux wound. Foot became more painful and swollen so she was told to come to the emergency room. No signs of infection on her labs per se. X-ray shows development of fracture of the distal aspect of the first proximal phalanx with osteomyelitis. She is scheduled tomorrow for likely amputation. Aside from pain and burning of the toe itself she denies fevers chills nausea vomiting and or diarrhea. Review of Systems Constitutional: Negative except as documented in history of present illness. Health Status Allergies: Allergic Reactions (Selected) Severity Not Documented Gabapentin- Tongue swelling. Lisinopril- Cough. Current medications: Medications (17) Active Scheduled: (13) atorvastatin 40 mg Tab [F] 40 mg 1 tab(s), Oral, Daily busPIRone 10 mg Tab [F] 10 mg 1 tab(s), Oral, BID cefepime + Sodium Chloride 0.9% Minibag 50 mL 1,000 mg 1 EA, IV Piggyback, q24hr citalopram 20 mg Tab [F] 40 mg 2 tab(s), Oral, Daily docusate sodium 100 mg Cap [F] 100 mg 1 cap(s), Oral, BID Ensure Enlive Chocolate 237 mL Liquid [F] 237 mL, Oral, BIDWM heparin 5,000 units/mL Inj [F] 5,000 unit(s) 1 mL, SubCutaneous, BID insulin lispro 100 units/mL (HUMALOG) 10 mL SubQ inj [F] 0-10 Unit(s), SubCutaneous, QIDACHS mexiletine 200 mg, Oral, q8hr midodrine 5 mg Tab [F] 10 mg 2 tab(s), Oral, TID pramipexole 0.25 mg Tab [F] 0.5 mg 2 tab(s), Oral, TID pregabalin 50 mg Cap [F] 50 mg 1 cap(s), Oral, Daily vancomycin PHARMACY TO DOSE [F] PHARMACY TO DOSE, IV, As Directed Continuous: (0) PRN: (4) acetaminophen 325 mg Tab UD [F] 650 mg 2 tab(s), Oral, q6hr acetaminophen-oxyCODONE 325 mg-5 mg Tab [F] 1 tab(s), Oral, q6hr dextrose 50% IV Jeannette 50 mL Abboject [F] 50 mL, IV Push, Once morphine 2 mg/mL preservative-free SOLN [F] 2 mg 1 mL, IV Push, q4hr Problem list: All Problems MRSA (methicillin resistant staph aureus) culture positive / SNOMED CT [id number] / Confirmed Rt great toe abscess Methicillin-Resistant Staphylococcus MRSA+ Transportation insecurity / SNOMED CT [id number] / Possible Problem added automatically by Discern Expert based on clinical documentation Histories Past Medical History: Resolved Coronary artery disease ([id number]): Resolved. Type 2 diabetes mellitus (250.00): Resolved. Hypertension (27133104): Resolved. Hyperlipidemia ([id number]): Resolved. Family History: No family history items have been selected or recorded. Procedure history: No active procedure history items have been selected or recorded. Physical Examination Vital Signs 09/30/2023 11:00 EDT Temperature Oral 36.6 DegC 09/30/2023 7:22 EDT Temperature Axillary 37 DegC HI 09/30/2023 2:50 EDT Temperature Oral 36.7 DegC 09/29/2023 23:00 EDT Temperature Oral 36.5 DegC 09/29/2023 20:00 EDT Temperature Oral 36.4 DegC 09/29/2023 16:54 EDT Temperature Oral 36.6 DegC Respiratory Rate 18 br/min Systolic Blood Pressure 125 mmHg Diastolic Blood Pressure 68 mmHg 09/29/2023 12:51 EDT Temperature Oral 36.4 DegC General: Alert and oriented. Eye: Pupils are equal, round and reactive to light. HENT: Normocephalic. Neck: Supple. Respiratory: Lungs are clear to auscultation. Cardiovascular: Normal rate, Regular rhythm. Gastrointestinal: Soft, Non-tender, Non-distended. Integumentary: Right hallux is swollen and tender to touch. Erythema noted.. Neurologic: Alert. Psychiatric: Cooperative. Review / Management Results review: All Results 09/30/2023 5:54 EDT WBC 7.8 E9/L HGB 11.2 gm/dL LOW Platelet 261.0 E9/L BUN 35 mg/dL CO Creatinine 3.8 mg/dL CO 09/29/2023 13:45 EDT WBC 10.6 E9/L , 09/16/23 Cx from R toe with gram positive rods. Radiology results: X-ray, IMPRESSION: INTERVAL DEVELOPMENT OF A FRACTURE OF THE DISTAL ASPECT OF THE FIRST PROXIMAL PHALANX POSSIBLY SECONDARY TO OSTEOMYELITIS. EROSIONS OF THE DISTAL PHALANX OF THE GREAT TOE SUGGESTING OSTEOMYELITIS ARE AGAIN IDENTIFIED.. Impression and Plan Diagnosis OM on xray R hallux infection . Course: Progressing as expected. Orders This is a chronic right toe lesion patient presented without systemic symptoms of infection. White count normal. Right toe obviously swollen and tender. X-ray shows osteomyelitis so I believe surgeryis already scheduled for tomorrow. Cannot have MRI per chart due to AICD. Empirically on vancomycinand cefepime. Prior wound c (more content not included)...[facility]Comment on above:Result Comment: Electronically Signed By: Pennie Singleton M.D.marga\Date and Time Signed: 09/30/23 13:53 [id number] NoteProgress Note - Pharmacy Vancomycin Pharmacy to Dose Consult Note Indication: Skin and Skin Structure Infection Goal Range: Trough: 10 - 20 RECOMMENDATIONS/PLAN: Pharmacy consulted for vancomycin dosing for CINTHYA WILSON, a 78 Years old, Female who is being treated with vancomycin for toe infection. 1. VANCO STATUS: Vancomycin therapy is still active, today is day 1 of treatment. Patient is receiving Vancomycin 1250mg IV once. 2. VANCO LEVEL: No Vancomycin level has been drawn for this dosing regimen. 3. DOSING RECS: (other comments)patient appears to be in DAVID, will need to dose by levels 4. NEXT LEVEL: The next level is scheduled for 1700 on 09/29. 5. MRSA NASAL SWAB? A MRSA Nasal Swab is not appropriate at this time. We will follow patient renal function, vancomycin levels and doses with you during the course of therapy. Additional recommendations will appear in follow up notes. If you have any questions, please contact the pharmacy at extension [phone]. Age: 78 Years Allergies: Allergies (2) Active Severity Reaction lisinopril Cough gabapentin Tongue swelling Weight: Last Documented Weight and Type of Scale Used Last Documented Weight Weight Measured: 61 kg (09/29/23 12:51:00) Type of Scale Used Weight Measured Type of Scale: Patient Stated Weight (09/29/23 12:51:00) Height: Last Documented Height/Length Last Documented Height/Length Height/Length Measured: 163 cm (09/29/23 12:51:00) CrCl: 14.36mL/min SCr: 2.9mg/dL Labs: WBC: 10.6 E9/L (09/29/23 13:45:00) RBC: 3.9 E12/L Low (09/29/23 13:45:00) HGB: 11.9 gm/dL Low (09/29/23 13:45:00) Hct: 36.6 % (09/29/23 13:45:00) MCV: 92.8 fL (09/29/23 13:45:00) MCH: 30.2 pg (09/29/23 13:45:00) MCHC: 32.5 gm/dL (09/29/23 13:45:00) RDW: 16.9 % High (09/29/23 13:45:00) Platelet: 255 E9/L (09/29/23 13:45:00) MPV: 8.7 fL (09/29/23 13:45:00) Neutro Auto: 82 % High (09/29/23 13:45:00) Lymph Auto: 9.4 % Low (09/29/23 13:45:00) Bandera Auto: 6 % (09/29/23 13:45:00) Eos Auto: 2.1 % (09/29/23 13:45:00) Basophil Auto: 0.5 % (09/29/23 13:45:00) Neutro Absolute: 8.7 E9/L High (09/29/23 13:45:00) Lymph Absolute: 1 E9/L (09/29/23 13:45:00) Bandera Absolute: 0.6 E9/L (09/29/23 13:45:00) Eos Absolute: 0.2 E9/L (09/29/23 13:45:00) Basophil Absolute: 0.1 E9/L (09/29/23 13:45:00) PT: 11.1 second(s) (09/29/23 13:45:00) INR: 0.99 (09/29/23 13:45:00) PTT: 38.4 second(s) High (09/29/23 13:45:00) Glucose Lvl: 181 mg/dL (09/29/23 13:45:00) BUN: 21 mg/dL (09/29/23 13:45:00) Creatinine: 2.9 mg/dL High (09/29/23 13:45:00) eGFR: 16 mL/min/1.73 m2 Low (09/29/23 13:45:00) BUN/Creat Ratio: 7 Low (09/29/23 13:45:00) Sodium Lvl: 132 mmol/L Low (09/29/23 13:45:00) Potassium Lvl: 4 mmol/L (09/29/23 13:45:00) Chloride: 89 mmol/L Low (09/29/23 13:45:00) CO2: 28 mmol/L (09/29/23 13:45:00) AGAP: 19 mEq/L High (09/29/23 13:45:00) Calcium Lvl: 10.1 mg/dL (09/29/23 13:45:00) Alk Phos: 150 Int._Unit/L High (09/29/23 13:45:00) ALT: 11 Int._Unit/L (09/29/23 13:45:00) AST: 19 Int._Unit/L (09/29/23 13:45:00) Total Protein: 7.8 gm/dL (09/29/23 13:45:00) Albumin Lvl: 4.1 gm/dL (09/29/23 13:45:00) Globulin: 3.7 gm/dL (09/29/23 13:45:00) A/G Ratio: 1.1 (09/29/23 13:45:00) Bili Total: 0.4 mg/dL (09/29/23 13:45:00) Lactic Acid Lvl: 1.3 mmol/L (09/29/23 13:45:00) Troponin HS: 25.8 pg/mL (09/29/23 13:45:00) dialysis MWF. will get pre-HD level 09/30[facility] NoteInterdisciplinary Note - [place] There was a positive SDOH referral for transportation needs. This SW met with the patient that lives in [facility]. This SW provided a transportation list to the patient with a listing of options in [facility]08-[facility]-2024 NoteHistory and Physical Basic Information Admit Date/Time:09/29/2023 14:[address] Loyd for right foot sore on great toe. pt states it is infected. History of Present Illness Cinthya Wilson is a 78-year-old female with past medical history positive for CAD with prior PCI, AICD, chronic respiratory failure on supplemental oxygen, COPD, hypertension, hyperlipidemia, diabetes, end-stage renal disease on dialysis at [place] via fistula, GERD, anxiety/depression. She denies smoking history, denies alcohol use. She has been following outpatient with Dr. Julius Loyd for rightfoot wound.. Foot became more painful, wound appeared to be worsening. She was instructed to present to [facility], ER. She was seen in the ER 09/29/2023, on arrival she is nontoxic, afebrile, normotensive/hemodynamically stable. She is on 3 L via nasal cannula chronically. Labs with hemoglobin 11.9, creatinine of 2.9, sodium 132, chloride 89, anion gap 19, alk phos 150. Lactic acid 1.3. Troponin negative. Of note, she did have hemodialysis treatment this morning. ECG shows a paced rhythm. Chest x-ray with small bilateral pleural effusion. Right foot x-ray reports interval development of fracture of the distal aspect of the first proximal phalanx, possibly secondary to osteomyelitis. Erosions of distal phalanx of the great toe suggest osteomyelitis again identified. She patient is seen in the emergency room. She is hemodynamically stable. She has right foot pain otherwise no complaints to me. She denies fevers or chills. She is eating and drinking no nausea vomiting or diarrhea. Review of Systems Constitutional: Negative Eye: Negative. Ear/Nose/Mouth/Throat: Negative. Respiratory: Chronic respiratory failure on supplemental oxygen Cardiovascular: Negative. Gastrointestinal: Denies abd pain. Passing flatus. Last bowel movement: 1 day ago Genitourinary: Negative. Hematology/Lymphatics: Negative. Endocrine: Negative. Immunologic: Negative Musculoskeletal: Right foot pain. Integumentary: Right foot infection/cellulitis. Neurologic: Alert and oriented X4. Psychiatric: Negative. Additional ROS info: Except as noted in the above Review of Systems and in the History of Present Illness all other systems have been reviewed and are negative or noncontributory Scoring Castillo Fall Risk Score: 50 High (09/29/23) Physical Exam Vitals & Measurements T: 36.4 ?C(Oral) HR: 59(Monitored) RR: 16 BP: 110/58 SpO2: 100% HT: 163 cm WT: 61 kg General: Elderly female, no acute distress. Alert, calm, NAD Head: Normocephalic/atraumatic Eyes: PERRLA. Conjunctivae and sclerae normal, and intact EOM HEENT: Mucous membrane pink, moist, Normal tongue. Neck: supple, no JVD, no bruit Chest: No chest wall deformity, no chest wall tenderness Lungs: lungs decreased air movement, on 3 L NC Cardio: Regular S1, S2,. Good perfusion Pulses: palpable DP B; right AV fistula + thrill/bruit Abdomen: Soft, mildly-distended, non-tender, + BS x4 Musculoskeletal: Right foot MTP swollen, great toe deformed Integumentary: Warm, dry, right foot erythematous/warmth extending to the ankle right great toe with diabetic ulcer with purple discoloration and surrounding skin sloughing Extremity: swelling of right foot and ankle Neurologic: Alert, oriented x 4 follows commands, no obvious focal deficits Mental status: Pleasant & cooperative, normal judgment Lab Results WBC: 10.6 E9/L (09/29/23 13:45:00) RBC: 3.9 E12/L Low (09/29/23 13:45:00) HGB: 11.9 gm/dL Low (09/29/23 13:45:00) Hct: 36.6 % (09/29/23 13:45:00) MCV: 92.8 fL (09/29/23 13:45:00) MCH: 30.2 pg (09/29/23 13:45:00) MCHC: 32.5 gm/dL (09/29/23 13:45:00) RDW: 16.9 % High (09/29/23 13:45:00) Platelet: 255 E9/L (09/29/23 13:45:00) MPV: 8.7 fL (09/29/23 13:45:00) Neutro Auto: 82 % High (09/29/23 13:45:00) Lymph Auto: 9.4 % Low (09/29/23 13:45:00) Bandera Auto: 6 % (09/29/23 13:45:00) Eos Auto: 2.1 % (09/29/23 13:45:00) Basophil Auto: 0.5 % (09/29/23 13:45:00) Neutro Absolute: 8.7 E9/L High (09/29/23 13:45:00) Lymph Absolute: 1 E9/L (09/29/23 13:45:00) Bandera Absolute: 0.6 E9/L (09/29/23 13:45:00) Eos Absolute: 0.2 E9/L (09/29/23 13:45:00) Basophil Absolute: 0.1 E9/L (09/29/23 13:45:00) PT: 11.1 second(s) (09/29/23 13:45:00) INR: 0.99 (09/29/23 13:45:00) PTT: 38.4 second(s) High (09/29/23 13:45:00) Glucose Lvl: 181 mg/dL (09/29/23 13:45:00) BUN: 21 mg/dL (09/29/23 13:45:00) Creatinine: 2.9 mg/dL High (09/29/23 13:45:00) eGFR: 16 mL/min/1.73 m2 Low (09/29/23 13:45:00) BUN/Creat Ratio: 7 Low (09/29/23 13:45:00) Sodium Lvl: 132 mmol/L Low (09/29/23 13:45:00) Potassium Lvl: 4 mmol/L (09/29/23 13:45:00) Chloride: 89 mmol/L Low (09/29/23 13:45:00) CO2: 28 mmol/L (09/29/23 13:45:00) AGAP: 19 mEq/L High (09/29/23 13:45:00) Calcium Lvl: 10.1 mg/dL (09/29/23 13:45:00) Alk Phos: 150 Int._Unit/L High (09/29/23 13:45:00) ALT: 11 Int._Unit/L (09/29/23 13:45:00) AST: 19 Int._Unit/L (09/29/23 (more content not included)...[facility]:Result Comment: Electronically Signed By: Yovani Ledbetter CNP\.br\Date and Time Signed: 09/29/23 16:38 EDT\.br\Electronically Co-Signed By: Armando Munroe DO\.br\Date and Time Co-Signed:09/29/23 19:01 [id number] NoteProgress Note - Pharmacy Vancomycin Pharmacy to Dose Consult Note Indication: Skin and Skin Structure Infection Goal Range: Trough: 10 - 20 RECOMMENDATIONS/PLAN: Pharmacy consulted for vancomycin dosing for CINTHYA WILSON, a 78 Years old, Female who is being treated with vancomycin for toe infection. 1. VANCO STATUS: Vancomycin therapy is still active, today is day 1 of treatment. Patient is receiving Vancomycin 1250mg IV once. 2. VANCO LEVEL: No Vancomycin level has been drawn for this dosing regimen. 3. DOSING RECS: (other comments)patient appears to be in DAVID, will need to dose by levels 4. NEXT LEVEL: The next level is scheduled for 1700 on 09/29. 5. MRSA NASAL SWAB? A MRSA Nasal Swab is not appropriate at this time. We will follow patient renal function, vancomycin levels and doses with you during the course of therapy. Additional recommendations will appear in follow up notes. If you have any questions, please contact the pharmacy at extension [phone]. Age: 78 Years Allergies: Allergies (2) Active Severity Reaction lisinopril Cough gabapentin Tongue swelling Weight: Last Documented Weight and Type of Scale Used Last Documented Weight Weight Measured: 61 kg (09/29/23 12:51:00) Type of Scale Used Weight Measured Type of Scale: Patient Stated Weight (09/29/23 12:51:00) Height: Last Documented Height/Length Last Documented Height/Length Height/Length Measured: 163 cm (09/29/23 12:51:00) CrCl: 14.36mL/min SCr: 2.9mg/dL Labs: WBC: 10.6 E9/L (09/29/23 13:45:00) RBC: 3.9 E12/L Low (09/29/23 13:45:00) HGB: 11.9 gm/dL Low (09/29/23 13:45:00) Hct: 36.6 % (09/29/23 13:45:00) MCV: 92.8 fL (09/29/23 13:45:00) MCH: 30.2 pg (09/29/23 13:45:00) MCHC: 32.5 gm/dL (09/29/23 13:45:00) RDW: 16.9 % High (09/29/23 13:45:00) Platelet: 255 E9/L (09/29/23 13:45:00) MPV: 8.7 fL (09/29/23 13:45:00) Neutro Auto: 82 % High (09/29/23 13:45:00) Lymph Auto: 9.4 % Low (09/29/23 13:45:00) Bandera Auto: 6 % (09/29/23 13:45:00) Eos Auto: 2.1 % (09/29/23 13:45:00) Basophil Auto: 0.5 % (09/29/23 13:45:00) Neutro Absolute: 8.7 E9/L High (09/29/23 13:45:00) Lymph Absolute: 1 E9/L (09/29/23 13:45:00) Bandera Absolute: 0.6 E9/L (09/29/23 13:45:00) Eos Absolute: 0.2 E9/L (09/29/23 13:45:00) Basophil Absolute: 0.1 E9/L (09/29/23 13:45:00) PT: 11.1 second(s) (09/29/23 13:45:00) INR: 0.99 (09/29/23 13:45:00) PTT: 38.4 second(s) High (09/29/23 13:45:00) Glucose Lvl: 181 mg/dL (09/29/23 13:45:00) BUN: 21 mg/dL (09/29/23 13:45:00) Creatinine: 2.9 mg/dL High (09/29/23 13:45:00) eGFR: 16 mL/min/1.73 m2 Low (09/29/23 13:45:00) BUN/Creat Ratio: 7 Low (09/29/23 13:45:00) Sodium Lvl: 132 mmol/L Low (09/29/23 13:45:00) Potassium Lvl: 4 mmol/L (09/29/23 13:45:00) Chloride: 89 mmol/L Low (09/29/23 13:45:00) CO2: 28 mmol/L (09/29/23 13:45:00) AGAP: 19 mEq/L High (09/29/23 13:45:00) Calcium Lvl: 10.1 mg/dL (09/29/23 13:45:00) Alk Phos: 150 Int._Unit/L High (09/29/23 13:45:00) ALT: 11 Int._Unit/L (09/29/23 13:45:00) AST: 19 Int._Unit/L (09/29/23 13:45:00) Total Protein: 7.8 gm/dL (09/29/23 13:45:00) Albumin Lvl: 4.1 gm/dL (09/29/23 13:45:00) Globulin: 3.7 gm/dL (09/29/23 13:45:00) A/G Ratio: 1.1 (09/29/23 13:45:00) Bili Total: 0.4 mg/dL (09/29/23 13:45:00) Lactic Acid Lvl: 1.3 mmol/L (09/29/23 13:45:00) Troponin HS: 25.8 pg/mL (09/29/23 13:45:00)[facility]08-[facility] NoteMicrobiology PROCEDURE: Wound Culture [R1] SOURCE: Wound BODY SITE: Toe COLLECTED DATE/TIME: 09/16/2023 14:08 EDT RECEIVED DATE/TIME: 09/16/2023 16:33 EDT START DATE/TIME: 09/16/2023 16:33 EDT FREE TEXT SOURCE: wound culture right great toe Caro HAIRSTON, Julius Loyd DPM, Julius Hull FINAL REPORTS Final Report [] Verified Date/Time: 09/18/2023 11:49 EDT 2+ Gram Positive Rods resembling diphtheroids STAINS Gram Stain Report [] Verified Date/Time: 09/17/2023 12:11 EDT Occasional White Blood Cells Occasional epithelial cells Occasional Gram Positive Rods Performing Locations R1: This test was performed at: [facility], [address] [place] [address], [phone] , [place], [facility]awlh[facility] HospitalComment on above:Performed By: #### [id number] #### [facility] [address] [place] [address] [id number] NoteUT Electrophysiology Consult Note Reason for visit: near syncope, VT s/p dual chamber ICD. 08/05/2023 Patient here for 2 mo follow up hypotension. Midodrine was increased to 10mg tid at last apt in May 2023. Metoprolol tartrate was changed to metoprolol succinate. She fell about 5 weeks ago and fractured her neck. She states the wheel of her walker got caught in some stones in a parking lot. Still gets occasional lightheadedness but denies this being the cause of the fall. Denies chest pain and palpitations. BP has been running low intermittently. She will feel fatigued during these times. Otherwise she has been feeling okay despite her recent neck injury. She is currently residing at the [facility] until August 13. 06/10/2023 She has been dealing with lower blood pressures for the past month. She is symptomatic with these. She will feel dizzy/LH, weakness, trouble ambulating, feels disoriented when it is low. Her valsartan was held and she was started on PRN midodrine. 04/01/23 Patient here for 6 week follow [...] NC, syncope. She was recently admitted to [facility] after syncopal episode and hitting her head as a result. Patient was at home clearing table after dinner where she felt sudden onset of dizziness and then just passed out. She had CT scans of the head and cervical spine which were unremarkable. [facility] ER noted multiple runs of nonsustained VT and her EKG at that time showed normal sinus rhythm first-degree AV block and PVCs. She was switched from carvedilol to metoprolol and then began to experience bradycardia; at some point she was started on amiodarone for rhythm control related to VT. She was discharged with 2-week event monitor. per [facility]: 14-day event monitor 12/09/2022 shows sinus rhythm with no VT, no PVCs were noted, it was reported there was an episode of 3-1 AV block with 3.1-second pause which was reported as asymptomatic She was seen by her primary clinical laboratory aide who referred her to EP. She was [...] (chronic obstructive pulmonary disease) ([facility]/HCC) 09/23/2021 Diastolic heart failure ([facility]/HCC) 09/23/2021 Dyspnea 09/23/2021 Edema 09/23/2021 Essential hypertension 09/23/2021 Hyperlipemia 09/23/2021 Kidney disease 09/23/2021 Orthopnea 09/23/2021 Primary malignant neoplasm ([facility]/HCC) 09/23/2021 Sleep apnea Type 1 diabetes ([facility]) 09/23/2021 PSH: Past Surgical History: Procedure Laterality [...] true Transportation Needs: No Transportation Needs (01/29/2023) Transportation Lack of Transportation (Medical): No Lack of Transportation (Non-Medical): No Physical Act (more content not included)...[facility] 08-05-2023 NotePatient here for 2 mo follow up hypotension. Midodrine was increased to 10mg tid at last apt in May 2023. Metoprolol tartrate was changed to metoprolol succinate. She fell about 5 weeks ago and fractured her neck. She states the wheel of her walker got caught in some stones in a parking lot. Still gets occasional lightheadedness but denies this being the cause of the fall. Denies chest pain and palpitations. Review of Systems Constitutional: Positive for malaise/fatigue. Cardiovascular: Positive for dyspnea on exertion and leg swelling (intermittent). Musculoskeletal: Positive for back pain, falls, muscle weakness, myalgias and neck pain. Neurological: Positive for dizziness, focal weakness, light-headedness and weakness. All other systems reviewed and are negative.[facility] 07-22-2023 Progress note Author Gary Almaguer [facility] July 22, 2023 7:00am Note Date/Time July 21, 2023 4:22 pm [facility] [address] [place], [place] [id number] Hospitalist Progress Note Signed Patient: Cinthya Wilson MR#: [id number] : 1945 Acct:[id number] Age/Sex: 78 / F Adm Date: 4 Loc: Room: 3E6289-2 Type: ADM IN Attending Dr: Quintin Johnson MD Copies to: ~ Date of Service: 07/21/2023 Subjective Subjective Narrative: Seen and examined on follow-up, sitting up in chair, continues to do well with physical therapy. Reports that blurry vision and double vision has resolved, however still having split vision at times. Denies any pain or discomfort currently on 2 L of oxygen with saturations in the high 90s, afebrile. Vitals reviewed, BP, was controlled earlier with episodes of hypotension. Will not make any new changes at this time, will continue to monitor Exam Physical Exam Vital Signs: Temp Pulse Resp BP Pulse Ox O2 Del Method O2 Flow Rate 97.8 F 80 16 121/79 96 Nasal Cannula 2 07/21/23 12:55 07/21/23 16:00 07/21/23 12:55 07/21/23 16:00 07/21/23 12:55 07/21/23 12:55 07/21/23 12:55 Narrative: CONST-frail appearing, alert awake sitting comfortably in chair NECK cervical collar intact CARDIAC-normal rate, regular rhythm, normal S1 & S2. PULM-diminished without wheeze or rhonchi, 2 L no accessory muscle use or cough noted ABD - Soft. Bowel sounds are normal. No distention No tenderness EXTREM-no edema BLE calves nontender SKIN-fragile, surgical site not visualized due to dressing Objective Lab Results 07/21/23 05:35 07/21/23 05:35 Meds Allergies and Active Meds Allergies lisinopril Allergy (Unknown, Verified 06/30/23 12:32) Cough gabapentin Allergy (Verified 06/30/23 12:32) Swelling of Lip/Tongue/Throat Active Meds: Active Medications Generic Name Dose Route Start Last Admin Trade Name Freq PRN Reason Stop Dose Admin Acetaminophen 500 mg 07/08/23 18:10 07/10/23 13:01 Acetaminophen 500 Mg Tablet PO 07/07/24 18:09 500 mg Q4H PRN Administration Pain Al Hydrox/Mg Hydrox/Simethicone 30 ml 07/08/23 18:10 07/20/23 02:26 Mag Hydrox/Al Hydrox/Simeth 30 Ml Udc PO 07/07/24 18:09 30 ml Q4H PRN Administration Indigestion Albuterol 0.63 mg 07/08/23 19:03 07/21/23 01:26 Albuterol Neb 2.5 Mg/3 Ml Vial.Neb INHALATION 07/07/24 19:02 0.63 mg QID PRN Administration Shortness Of Breath Ammonium Lactate 1 applic 07/15/23 21:30 07/21/23 08:26 Ammonium Lactate 12% Lot 226 Gm Bottle TOPICAL 07/14/24 21:29 1 applic BID YESSENIA Administration Aspirin 81 mg 07/09/23 09:00 07/21/23 08:24 Aspirin 81 Mg Tablet.Dr PO 07/08/24 08:59 81 mg DAILY YESSENIA Administration Atorvastatin Calcium 40 mg 07/08/23 21:00 07/20/23 21:11 Atorvastatin 40 Mg Tablet PO 07/07/24 20:59 40 mg QPM YESSENIA Administration Bisacodyl 10 mg 07/08/23 18:10 Bisacodyl 10 Mg Supp.Rect RI 07/07/24 18:09 DAILY PRN Constipation Budesonide/Formoterol Fumarate 2 puff 07/08/23 21:00 07/21/23 05:39 Budesonide/Formoterol 80-4.5 Mcg 60 Puff/6.9 Gm Hfa.Aer.Ad INHALATION 07/07/24 20:59 2 puff BID YESSENIA Administration Buspirone HCl 10 mg 07/08/23 21:00 07/21/23 08:24 Buspirone 10 Mg Tablet PO 07/07/24 20:59 10 mg BID YESSENIA Administration Calcium Acetate 667 mg 07/09/23 08:00 07/21/23 08:33 Calcium Acetate 667 Mg Capsule PO 07/08/24 07:59 Not Given TID.WITH.MEALS YESSENIA Cephalexin HCl 500 mg 07/18/23 21:00 07/20/23 21:11 Cephalexin 500 Mg Capsule PO 07/25/23 20:59 500 mg QPM YESSENIA Administration Citalopram Hydrobromide 20 mg 07/09/23 09:00 07/21/23 08:24 Citalopram 20 Mg Tablet PO 07/08/24 08:59 20 mg DAILY YESSENIA Administration Darbepoetin Theodore 40 mcg 07/14/23 17:00 07/21/23 16:03 Darbepoetin Theodore In Polysorbat 40 Mcg/Ml Vial IV-PUSH 07/13/24 16:59 Not Given Mo@1700 [facility] Protocol Diclofenac Sodium 4 gm 07/08/23 22:00 07/21/23 15:25 Diclofenac Sodium 1% Gel 100 Gm Tube TOPICAL 07/07/24 21:59 Not Given QID [facility] Docusate Sodium 100 mg 07/08/23 18:10 07/15/23 05:20 Docusate 100 Mg Capsule PO 07/07/24 18:09 100 mg BID PRN Administration Constipation Docusate Sodium 283 mg 07/08/23 18:10 Docusate Enema 283 Mg/5 Ml Enema RI 07/07/24 18:09 DAILY PRN Constipation Guaifenesin/Dextromethorphan 1 tab 07/21/23 01:36 07/21/23 02:18 Guaif/Dextromethorphan 600-30mg Tab.Er.12h PO 07/20/24 01:35 1 tab Q12HR PRN Administration Congestion Heparin Sodium (Porcine) 2,000 unit 07/11/23 15:41 07/14/23 13:28 Heparin 10,000 Unit/10 Ml Vial IV 07/10/24 15:40 2,000 unit PRN PRN Administration Dialysis Heparin Sodium (Porcine) 1,000 unit 07/11/23 15:41 07/11/23 16:30 Heparin 10,000 Unit/10 Ml Vial IV 07/10/24 15:40 1,000 unit PRN PRN Administration Dialysis Heparin Sodium (Porcine) 5,000 unit 07/17/23 21:00 07/21/23 08:24 Heparin 5,000 Unit/Ml Vial SUBCUT 07/16/24 20:59 5,000 unit Q12HR YESSENIA Administration Sodium Chloride 1,000 mls @ 0 mls/hr 07/09/23 09:05 07/21/23 15:35 0.9% Sodium Chloride 1,000 Ml MISCELLANE 07/08/24 09:04 Infused .Q0M PRN Infusion Dialysis As Directed Insulin Aspart 0 units 07/08/23 22:00 07/21/23 11:51 Insulin Aspart 300 Units/3 Ml Insuln.Pen SUBCUT 07/07/24 21:59 4 units TID.WM.HS YESSENIA Administration Protocol Ipratropium [place] 0.5 mg 07/09/23 08:00 07/21/23 15:08 Ipratropium [place] 0.5 Mg/2.5 Ml Vial.Neb INHALATION 07/08/24 07:59 Not Given QID.RESP YESSENIA Lactulose 30 gm 07/08/23 18:10 Lactulose 20 Gm/30 Ml Udc PO 07/07/24 18:09 DAILY PRN Constipation Lidocaine 1 patch 07/08/23 21:00 07/21/23 08:26 Lidocaine 4% Adh..Patch TOPICAL 07/07/24 20:59 1 patch BID YESSENIA Administration Lubiprostone 8 mcg 07/08/23 21:00 07/21/23 08:24 Lubiprostone 8 Mcg Capsule PO 07/07/24 20:59 8 mcg BID YESSENIA Administration Metoprolol Tartrate 12.5 mg 07/09/23 09:00 07/21/23 08:24 Metoprolol Tartrate 12.5 Mg Tablet PO 07/08/24 08:59 12.5 mg DAILY YESSENIA Administration Mexiletine HCl 200 mg 07/08/23 22:00 07/21/23 15:25 Mexiletine 200 Mg Capsule PO 07/07/24 21:59 Not Given Q8HR YESSENIA Midodrine 5 mg 07/09/23 07:00 07/21/23 11:50 Midodrine 5 Mg Tablet PO 07/08/24 06:59 5 mg TID.7A.12P.5P YESSENIA Administration Midodrine 5 mg 07/09/23 14:21 07/21/23 15:34 Midodrine 5 Mg Tablet PO 07/08/24 14:20 5 mg MoWeFr PRN Administration Hypotension, sbp <90 Multivitamins 1 tab 07/09/23 09:00 07/21/23 08:24 Multivitamin 1 Tab Tablet PO 07/08/24 08:59 1 tab DAILY YESSENIA Administration Nystatin 1 applic 07/11/23 12:45 07/21/23 08:26 Nystatin 100,000 Unit/Gram Powder 15 Gm Bottle TOPICAL 07/10/24 12:44 1 applic BID YESSENIA Administration Oxycodone/Acetaminophen 1 tab 07/18/23 20:36 07/20/23 22:31 Oxycodone/Acetaminophen 5-325 Mg Tablet PO 1 tab Q4H PRN Administration pain Polyethylene Glycol 17 gm 07/08/23 21:00 07/21/23 08:26 Polyethylene Glycol 3350 17 Gm Powd.Pack PO 07/07/24 20:59 17 gm BID YESSENIA Administration Pramipexole Dihydrochloride 0.5 mg 07/08/23 22:00 07/20/23 21:11 Pramipexole 0.5 Mg Tablet PO 07/07/24 21:59 0.5 mg HS YESSENIA Administration Pregabalin 50 mg 07/08/23 21:00 07/21/23 08:24 Pregabalin 50 Mg Capsule PO 01/04/24 20:59 50 mg BID YESSENIA Administration Sennosides 2 tab 07/09/23 12:00 07/15/23 05:20 Sennosides 8.6 Mg Tablet PO 07/08/24 11:59 2 tab DAILY@12 PRN Administration If no BM in 2 days Simethicone 80 mg 07/20/23 05:45 07/20/23 21:11 Simethicone 80 Mg Tab.Chew PO 07/19/24 05:44 80 mg QID PRN Administration Abdominal Distention Sodium Chloride 0 ml 07/08/23 18:10 07/21/23 15:34 Sodium Chloride 0.9 % 10 Ml Syringe IV-PUSH 07/07/24 18:09 10 ml PRN PRN Administration Flush Sodium Chloride 0 ml 07/09/23 09:05 07/16/23 13:38 Sodium Chloride 0.9 % 10 Ml Syringe IV-PUSH 07/08/24 09:04 10 ml PRN PRN Administration Flush Vitamin D 25 mcg 07/09/23 09:00 07/21/23 08:24 Cholecalciferol 25 Mcg (1,000 Units) Tablet PO 07/08/24 08:59 25 mcg DAILY YESSENIA Administration A&P - Hospitalist Assessment/Plan (1) Odontoid fracture with type II morphology: (2) Impaired mobility and activities of daily living: (3) Chronic hypotension: (4) Type 2 diabetes mellitus with diabetic chronic kidney disease: (5) Anemia of renal disease: (6) ESRD (end stage renal disease): Plan Close odontoid fracture secondary to mechanical fall S/p C2 fracture with C2-3/3-4 instability 07/04 S/p Posterior Cervical Decompression with C1-5 Fixation Impaired mobility and activities of daily living * Plan of care for rehabilitation, PT/OT, DVT prophylaxis, bowel regimen per PM&R team Left eye vision changes/blurry vision, DDx :ocular myasthenia gravis and microvascular III/IV/ cranial nerve palsy pain neurology * CT head without contrast with no acute findings * Nephrology consulted, recommending to continue aspirin 81 mg daily and atorvastatin 40 mg daily * Neuromuscular junction lab work still pending, acetylcholine receptor blocking antibodies 21%, acid 2 receptor binding antibiotics undetected and muscle specific kinase and acetylcholine receptor modulating antibodies are still pending. * Outpatient neurology follow-up Chronic conditions: 1. Diastolic heart failure/hypotension?on metoprolol, midodrine, slightly elevated, mostly controlled. Hypotensive, this afternoon 2. Type 2 diabetes?on SSI, blood sugars slightly elevated, will check A1c and plan to start long-acting insulin 3. COPD?on albuterol and budesonide/formoterol, home oxygen of 2 L 4. ESRD/diabetic neuropathy/anemia of chronic disease?Nephrology following, adequate iron stores, erythropoietin will be started if Hgb <9 per nephrology 5. History of CAD s/p PCI and cardiac arrhythmias s/p AICD Documented By: Edie Ferrera APRN 07/21/23 1615 Signed By: <Electronically signed by NELI Ferrera> 07/21/23 1839 <Electronically signed by Gary Almaguer MD> 07/22/23 [address] [facility] Work Phone: [phone] 438-755906-10-2024 Progress note Author Wood Zavala [facility] July 21, 2023 3:35pm Note Date/Time July 21, 2023 1:17 pm [facility] [address] [place] [address] Nephrology Progress Note Signed Patient: Cinthya Wilson MR#: [id number] : 1945 Acct:[id number] Age/Sex: 78 / F Adm Date: 4 Loc: Room: [address] [place] [address] Type: ADM IN Attending Dr: Quintin Johnson MD Copies to: ~ Date of Service: 07/21/2023 Subjective Subjective Narrative: This is a 78-year-old female well-known to our service from dialysis unit who isbeing seen in the rehab for management of ESRD and dialysis. 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 Her other comorbidities are CAD s/p PCI, COPD, chronic hypoxic diastolic failure, cardiac arrhythmia s/p AICD and dyslipidemia. She was admitted to [facility] through ER after fall and she was found to have new fracture at the base of the odontoid. There is no intracranial bleeding. Patient underwent surgery on 07/04/2023 and subsequently was moved up to the rehab. Interval history Patient was seen and examined on hemodialysis. Chest pain palpitation cough nausea vomiting diarrhea and shortness of breath. She has a cervical neck collar. She likely will be discharged tomorrow from acute rehab. Exam Physical Exam Vital Signs: Temp Pulse Resp BP Pulse Ox O2 Del Method O2 Flow Rate 98.1 F 72 18 130/65 96 Nasal Cannula 2 07/21/23 08:23 07/21/23 11:49 07/21/23 11:49 07/21/23 11:49 07/21/23 11:49 07/21/23 11:49 07/21/23 11:49 Narrative: General: Appears comfortable and not in distress Heart: S1-S2, no rub Lung: Bilateral air entry, no wheezing or crackles Abdomen: Soft, positive bowel sounds Extremities: No edema, no cyanosis Head: Atraumatic, normocephalic Ear: No gross hearing Deficit or external ear redness Eyes: No pallor or redness Neck: No JVD or visible mass Skin: No rashes , warm to touch [employer]NER: Awake,Alert, following simple command Musculoskeletal: No swelling or limitation of movement of the large joints Psychiatric: Cooperative, normal mood and affect Objective Intake and Output I&O: Intake & Output 07/18/23 07/19/23 07/20/23 07/21/23 23:59 23:59 23:59 23:59 Intake Total 1660 / 1660 300 / 300 550 / 550 200 / 200 Output Total 2601 / 2601 Balance -941 / -941 300 / 300 550 / 550 200 / 200 Weight 67.9 kg 67.3 kg 67.5 kg 67.2 kg Meds and Allergies Meds: Active Medications Acetaminophen (Acetaminophen 500 Mg Tablet) 500 mg PO Q4H PRN PRN Reason: Pain Stop: 07/07/24 18:09 Last Admin: 07/10/23 13:01 Dose: 500 mg Al Hydrox/Mg Hydrox/Simethicone (Mag Hydrox/Al Hydrox/Simeth 30 Ml Udc) 30 ml PO Q4H PRN PRN Reason: Indigestion Stop: 07/07/24 18:09 Last Admin: 07/20/23 02:26 Dose: 30 ml Albuterol (Albuterol Neb 2.5 Mg/3 Ml Vial.Neb) 0.63 mg INHALATION QID PRN PRN Reason: Shortness Of Breath Stop: 07/07/24 19:02 Last Admin: 07/21/23 01:26 Dose: 0.63 mg Ammonium Lactate (Ammonium Lactate 12% Lot 226 Gm Bottle) 1 applic TOPICAL BID [facility] Stop: 07/14/24 21:29 Last Admin: 07/21/23 08:26 Dose: 1 applic Aspirin (Aspirin 81 Mg Tablet.) 81 mg PO DAILY [facility] Stop: 07/08/24 08:59 Last Admin: 07/21/23 08:24 Dose: 81 mg Atorvastatin Calcium (Atorvastatin 40 Mg Tablet) 40 mg PO QPM [facility] Stop: 07/07/24 20:59 Last Admin: 07/20/23 21:11 Dose: 40 mg Bisacodyl (Bisacodyl 10 Mg Supp.Rect) 10 mg RI DAILY PRN PRN Reason: Constipation Stop: 07/07/24 18:09 Budesonide/Formoterol Fumarate (Budesonide/Formoterol 80-4.5 Mcg 60 Puff/6.9 Gm Hfa.Aer.Ad) 2 puff INHALATION BID [facility] Stop: 07/07/24 20:59 Last Admin: 07/21/23 05:39 Dose: 2 puff Buspirone HCl (Buspirone 10 Mg Tablet) 10 mg PO BID [facility] Stop: 07/07/24 20:59 Last Admin: 07/21/23 08:24 Dose: 10 mg Calcium Acetate (Calcium Acetate 667 Mg Capsule) 667 mg PO TID.WITH.MEALS [facility] Stop: 07/08/24 07:59 Last Admin: 07/21/23 08:33 Dose: Not Given Cephalexin HCl (Cephalexin 500 Mg Capsule) 500 mg PO QPM [facility] Stop: 07/25/23 20:59 Last Admin: 07/20/23 21:11 Dose: 500 mg Citalopram Hydrobromide (Citalopram 20 Mg Tablet) 20 mg PO DAILY [facility] Stop: 07/08/24 08:59 Last Admin: 07/21/23 08:24 Dose: 20 mg Darbepoetin Theodore (Darbepoetin Theodore In Polysorbat 40 Mcg/Ml Vial) 40 mcg IV-PUSHMo@1700 [facility]; Protocol Stop: 07/13/24 16:59 Last Admin: 07/14/23 18:07 Dose: Not Given Diclofenac Sodium (Diclofenac Sodium 1% Gel 100 Gm Tube) 4 gm TOPICAL QID [facility] Stop: 07/07/24 21:59 Last Admin: 07/21/23 08:25 Dose: 4 gm Docusate Sodium (Docusate 100 Mg Capsule) 100 mg PO BID PRN PRN Reason: Constipation Stop: 07/07/24 18:09 Last Admin: 07/15/23 05:20 Dose: 100 mg Docusate Sodium (Docusate Enema 283 Mg/5 Ml Enema) 283 mg RI DAILY PRN PRN Reason: Constipation Stop: 07/07/24 18:09 Guaifenesin/Dextromethorphan (Guaif/Dextromethorphan 600-30mg Tab.Er.12h) 1 tabPO Q12HR PRN PRN Reason: Congestion Stop: 07/20/24 01:35 Last Admin: 07/21/23 02:18 Dose: 1 tab Heparin Sodium (Porcine) (Heparin 10,000 Unit/10 Ml Vial) 2,000 unit IV PRN PRN PRN Reason: Dialysis Stop: 07/10/24 15:40 Last Admin: 07/14/23 13:28 Dose: 2,000 unit Heparin Sodium (Porcine) (Heparin 10,000 Unit/10 Ml Vial) 1,000 unit IV PRN PRN PRN Reason: Dialysis Stop: 07/10/24 15:40 Last Admin: 07/11/23 16:30 Dose: 1,000 unit Heparin Sodium (Porcine) (Heparin 5,000 Unit/Ml Vial) 5,000 unit SUBCUT Q12HR YESSENIA Stop: 07/16/24 20:59 Last Admin: 07/21/23 08:24 Dose: 5,000 unit Sodium Chloride (0.9% Sodium Chloride 1,000 Ml) 1,000 mls @ 0 mls/hr MISCELLANE.Q0M PRN PRN Reason: Dialysis Stop: 07/08/24 09:04 Last Infusion: 07/18/23 14:06 Dose: Infused Insulin Aspart (Insulin Aspart 300 Units/3 Ml Insuln.Pen) 0 units SUBCUT TID.WM.HS [facility]; Protocol Stop: 07/07/24 21:59 Last Admin: 07/21/23 11:51 Dose: 4 units Ipratropium [place] (Ipratropium [place] 0.5 Mg/2.5 Ml Vial.Neb) 0.5 mg INHALATION QID.RESP YESSENIA Stop: 07/08/24 07:59 Last Admin: 07/21/23 10:12 Dose: 0.5 mg Lactulose (Lactulose 20 Gm/30 Ml Udc) 30 gm PO DAILY PRN PRN Reason: Constipation Stop: 07/07/24 18:09 Lidocaine (Lidocaine 4% Adh..Patch) 1 patch TOPICAL BID YESSENIA Stop: 07/07/24 20:59 Last Admin: 07/21/23 08:26 Dose: 1 patch Lubiprostone (Lubiprostone 8 Mcg Capsule) 8 mcg PO BID YESSENIA Stop: 07/07/24 20:59 Last Admin: 07/21/23 08:24 Dose: 8 mcg Metoprolol Tartrate (Metoprolol Tartrate 12.5 Mg Tablet) 12.5 mg PO DAILY YESSENIA Stop: 07/08/24 08:59 Last Admin: 07/21/23 08:24 Dose: 12.5 mg Mexiletine HCl (Mexiletine 200 Mg Capsule) 200 mg PO Q8HR YESSENIA Stop: 07/07/24 21:59 Last Admin: 07/21/23 05:28 Dose: 200 mg Midodrine (Midodrine 5 Mg Tablet) 5 mg PO TID.7A.12P.5P YESSENIA Stop: 07/08/24 06:59 Last Admin: 07/21/23 11:50 Dose: 5 mg Midodrine (Midodrine 5 Mg Tablet) 5 mg PO MoWeFr PRN PRN Reason: Hypotension, sbp <90 Stop: 07/08/24 14:20 Multivitamins (Multivitamin 1 Tab Tablet) 1 tab PO DAILY YESSENIA Stop: 07/08/24 08:59 Last Admin: 07/21/23 08:24 Dose: 1 tab Nystatin (Nystatin 100,000 Unit/Gram Powder 15 Gm Bottle) 1 applic TOPICAL BID YESSENIA Stop: 07/10/24 12:44 Last Admin: 07/21/23 08:26 Dose: 1 applic Oxycodone/Acetaminophen (Oxycodone/Acetaminophen 5-325 Mg Tablet) 1 tab PO Q4H PRN PRN Reason: pain Last Admin: 07/20/23 22:31 Dose: 1 tab Polyethylene Glycol (Polyethylene Glycol 3350 17 Gm Powd.Pack) 17 gm PO BID [facility] Stop: 07/07/24 20:59 Last Admin: 07/21/23 08:26 Dose: 17 gm Pramipexole Dihydrochloride (Pramipexole 0.5 Mg Tablet) 0.5 mg PO HS [facility] Stop: 07/07/24 21:59 Last Admin: 07/20/23 21:11 Dose: 0.5 mg Pregabalin (Pregabalin 50 Mg Capsule) 50 mg PO BID [facility] Stop: 01/04/24 20:59 Last Admin: 07/21/23 08:24 Dose: 50 mg Sennosides (Sennosides 8.6 Mg Tablet) 2 tab PO DAILY@12 PRN PRN Reason: If no BM in 2 days Stop: 07/08/24 11:59 Last Admin: 07/15/23 05:20 Dose: 2 tab Simethicone (Simethicone 80 Mg Tab.Chew) 80 mg PO QID PRN PRN Reason: Abdominal Distention Stop: 07/19/24 05:44 Last Admin: 07/20/23 21:11 Dose: 80 mg Sodium Chloride (Sodium Chloride 0.9 % 10 Ml Syringe) 0 ml IV-PUSH PRN PRN PRN Reason: Flush Stop: 07/07/24 18:09 Last Admin: 07/18/23 14:05 Dose: 10 ml Sodium Chloride (Sodium Chloride 0.9 % 10 Ml Syringe) 0 ml IV-PUSH PRN PRN PRN Reason: Flush Stop: 07/08/24 09:04 Last Admin: 07/16/23 13:38 Dose: 10 ml Vitamin D (Cholecalciferol 25 Mcg (1,000 Units) Tablet) 25 mcg PO DAILY YESSENIA Stop: 07/08/24 08:59 Last Admin: 07/21/23 08:24 Dose: 25 mcg Allergies lisinopril Allergy (Unknown, Verified 06/30/23 12:32) Cough gabapentin Allergy (Verified 06/30/23 12:32) Swelling of Lip/Tongue/Throat Results - Nephrology Labs 07/21/23 05:35 07/21/23 05:35 Labs: 07/21/23 05:35 BUN 48 H Creatinine 4.62 H Phosphorus 2.3 L Albumin 3.2 L Radiology Impressions Impressions - last 24 hours: Any impression(s) listed above is documentation that was entered by the reading physician into a diagnostic report(s) for Cinthya Wilson. I have reviewed the report(s) and am incorporating any findings in the treatment plan of this patient where applicable. 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 She currently goes to the [facility] dialysis unit on MWF schedule. (2) Odontoid fracture: Assessment/Problem Details: Patient presents after a fall and was found to have odontoid fracture. She underwent the surgery on 07/04/2023. (3) Type 2 diabetes mellitus with diabetic chronic kidney disease: Assessment/Problem Details: She has insulin-dependent type 2 diabetes mellitus. (4) Secondary hyperparathyroidism: Assessment/Problem Details: She has secondary hyperparathyroidism due to the ESRD and hyperphosphatemia. She currently takes calcium acetate at home. 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 She takes midodrine for intradialytic hypotension. Plan * Hemodialysis today as ordered.Continue midodrine 5 mg as needed for systolic blood pressure below 90s. * Patient gets hemodialysis with no heparin since she just had surgery on 07/03 * She has adequate iron stores. Will continue Aranesp 40 mcg q. Friday * Continue home dose of the calcium acetate. * Monitor CBC and renal panel before dialysis on MWF schedule. Documented By: Wood Zavala MD 07/21/23 1317 Signed By: <Electronically signed by Wood Zavala MD> 07/21/23 0613 [facility] Work Phone: 1(260) 753-243606-10-2024 Progress note Author Quintin Johnson [facility] July 21, 2023 10:47am Note Date/Time July 21, 2023 10:4 7am [facility] [address] [place] [address] Physiatry(Rehab) Progress Note Signed Patient: Cinthya Wilson MR#: [id number] : 1945 Acct:[id number] Age/Sex: 78 / F Adm Date: 4 Loc: 5T Room: 0S2587-4 Type: ADM IN Attending Dr: Quintin Johnson MD Copies to: ~ Date of Service: 07/21/2023 Subjective Subjective Narrative: Ms. Wilson is a 78 year old female with multiple comorbidities including type IIDM, ESRD on hemodialysis Friday/Friday?Friday, COPD, CHF who presents to acute inpatient rehabilitation unit with functional impairments in the setting of C2 and L1 fractures s/p C1?C3 fixation. Patient reports sustaining a fall after her walker wheel got stuck in a sidewalrevice. She fell backwards again the back of her head. No loss of consciousness. She was able to get herself up. Patient did not seek medical care right away and continued to go about her daily activities for several more days. She started developing upper and lower extremity weakness as well as blurry vision and a headache, which prompted her to seek care. Upon ER evaluation she was found to have an odontoid fracture. Neurosurgery was consulted and recommended an operative intervention. Patient received cardiology clearance prior to procedure due to extensive cardiac history. ICD interrogation demonstrated no significant abnormalities. Nephrology was also consulted for dialysis management. On 07/05/2023 Dr. Weiss performed posterior cervical fusion with C1, C2, C3 fixation without major complications. Patient is to wear c-collar postoperatively. She was evaluated by PT/OT and recommended acute rehab for strengthening. INTERVAL HISTORY: Increased dyspnea this morning, her oxygen was turned up to 3 L. She feels generally well. She ambulated 100 feet with therapy. Her breathing is nonlabored. She has no chest pain. Review of Systems Review of Systems All other systems reviewed & are negative unless noted below or in HPI Exam Physical Exam Vital Signs: Temp Pulse Resp BP Pulse Ox O2 Del Method O2 Flow Rate 98.1 F 88 22 111/62 96 Nasal Cannula 2 07/21/23 08:23 07/21/23 10:13 07/21/23 10:13 07/21/23 08:23 07/21/23 08:23 07/21/23 09:55 07/21/23 09:55 Narrative: Gen: Awake, oriented, cooperative. HEENT: Atraumatic, PERRL, EOMI Resp: No respiratory distress, right sided basilar crackles Cardio: Extremities well perfused MSK: Moves all extremities spontaneously. C collar noted Neuro: CN grossly intact Skin: No swelling, erythema, ecchymosis appreciated Psych: Mood and affect normal Objective Labs 07/21/23 05:35 07/21/23 05:35 Labs: Laboratory Results - last 24 hr 07/20/23 07/20/23 07/20/23 11:20 16:54 20:52 Corrected WBC Uncorrected WBC Count RBC Hgb Hct MCV MCH MCHC RDW Plt Count MPV Neut % (Auto) Lymph % (Auto) [place] % (Auto) Eos % (Auto) Baso % (Auto) Nucleat RBC Rel Count Neut # (Auto) Lymph # (Auto) [place] # (Auto) Eos # (Auto) Baso # (Auto) PHA Creatinine Clear Sodium Potassium Chloride Carbon Dioxide Anion Gap BUN Creatinine Est GFR (CKD-EPI) Glucose POC Glucose 204 206 279 Calcium Phosphorus Albumin 07/21/23 07/21/23 05:35 08:22 Corrected WBC 5.5 Uncorrected WBC Count 5.5 RBC 2.77 L Hgb 8.3 L Hct 25.6 L MCV 92.4 MCH 30.1 MCHC 32.5 RDW 17.2 H Plt Count 184 MPV 8.3 Neut % (Auto) 66.3 Lymph % (Auto) 16.4 Band[place] % (Auto) 11.5 Eos % (Auto) 5.3 Baso % (Auto) 0.5 Nucleat RBC Rel Count 0.0 Neut # (Auto) 3.7 Lymph # (Auto) 0.9 L [place] # (Auto) 0.6 Eos # (Auto) 0.3 Baso # (Auto) 0.0 PHA Creatinine Clear 9.76 Sodium 134 L Potassium 5.1 Chloride 97 L Carbon Dioxide 28.2 Anion Gap 13.9 BUN 48 H Creatinine 4.62 H Est GFR (CKD-EPI) 9.305 Glucose 153 H POC Glucose 154 Calcium 10.2 Phosphorus 2.3 L Albumin 3.2 L Medications and Allergies Allergies and Active Meds: Allergies lisinopril Allergy (Unknown, Verified 06/30/23 12:32) Cough gabapentin Allergy (Verified 06/30/23 12:32) Swelling of Lip/Tongue/Throat Active Medications Generic Name Dose Route Start Last Admin Trade Name Freq PRN Reason Stop Dose Admin Acetaminophen 500 mg 07/08/23 18:10 07/10/23 13:01 Acetaminophen 500 Mg Tablet PO 07/07/24 18:09 500 mg Q4H PRN Administration Pain Al Hydrox/Mg Hydrox/Simethicone 30 ml 07/08/23 18:10 07/20/23 02:26 Mag Hydrox/Al Hydrox/Simeth 30 Ml Udc PO 07/07/24 18:09 30 ml Q4H PRN Administration Indigestion Albuterol 0.63 mg 07/08/23 19:03 07/21/23 01:26 Albuterol Neb 2.5 Mg/3 Ml Vial.Neb INHALATION 07/07/24 19:02 0.63 mg QID PRN Administration Shortness Of Breath Ammonium Lactate 1 applic 07/15/23 21:30 07/21/23 08:26 Ammonium Lactate 12% Lot 226 Gm Bottle TOPICAL 07/14/24 21:29 1 applic BID YESSENIA Administration Aspirin 81 mg 07/09/23 09:00 07/21/23 08:24 Aspirin 81 Mg Tablet. PO 07/08/24 08:59 81 mg DAILY YESSENIA Administration Atorvastatin Calcium 40 mg 07/08/23 21:00 07/20/23 21:11 Atorvastatin 40 Mg Tablet PO 07/07/24 20:59 40 mg QPM YESSENIA Administration Bisacodyl 10 mg 07/08/23 18:10 Bisacodyl 10 Mg Supp.Rect RI 07/07/24 18:09 DAILY PRN Constipation Budesonide/Formoterol Fumarate 2 puff 07/08/23 21:00 07/21/23 05:39 Budesonide/Formoterol 80-4.5 Mcg 60 Puff/6.9 Gm Hfa.Aer.Ad INHALATION 07/07/24 20:59 2 puff BID YESSENIA Administration Buspirone HCl 10 mg 07/08/23 21:00 07/21/23 08:24 Buspirone 10 Mg Tablet PO 07/07/24 20:59 10 mg BID YESSENIA Administration Calcium Acetate 667 mg 07/09/23 08:00 07/21/23 08:33 Calcium Acetate 667 Mg Capsule PO 07/08/24 07:59 Not Given TID.WITH.MEALS [facility] Cephalexin HCl 500 mg 07/18/23 21:00 07/20/23 21:11 Cephalexin 500 Mg Capsule PO 07/25/23 20:59 500 mg QPM YESSENIA Administration Citalopram Hydrobromide 20 mg 07/09/23 09:00 07/21/23 08:24 Citalopram 20 Mg Tablet PO 07/08/24 08:59 20 mg DAILY [facility] Administration Darbepoetin Theodore 40 mcg 07/14/23 17:00 07/14/23 18:07 Darbepoetin Theodore In Polysorbat 40 Mcg/Ml Vial IV-PUSH 07/13/24 16:59 Not Given Mo@1700 [facility] Protocol Diclofenac Sodium 4 gm 07/08/23 22:00 07/21/23 08:25 Diclofenac Sodium 1% Gel 100 Gm Tube TOPICAL 07/07/24 21:59 4 gm QID YESSENIA Administration Docusate Sodium 100 mg 07/08/23 18:10 07/15/23 05:20 Docusate 100 Mg Capsule PO 07/07/24 18:09 100 mg BID PRN Administration Constipation Docusate Sodium 283 mg 07/08/23 18:10 Docusate Enema 283 Mg/5 Ml Enema RI 07/07/24 18:09 DAILY PRN Constipation Guaifenesin/Dextromethorphan 1 tab 07/21/23 01:36 07/21/23 02:18 Guaif/Dextromethorphan 600-30mg Tab.Er.12h PO 07/20/24 01:35 1 tab Q12HR PRN Administration Congestion Heparin Sodium (Porcine) 2,000 unit 07/11/23 15:41 07/14/23 13:28 Heparin 10,000 Unit/10 Ml Vial IV 07/10/24 15:40 2,000 unit PRN PRN Administration Dialysis Heparin Sodium (Porcine) 1,000 unit 07/11/23 15:41 07/11/23 16:30 Heparin 10,000 Unit/10 Ml Vial IV 07/10/24 15:40 1,000 unit PRN PRN Administration Dialysis Heparin Sodium (Porcine) 5,000 unit 07/17/23 21:00 07/21/23 08:24 Heparin 5,000 Unit/Ml Vial SUBCUT 07/16/24 20:59 5,000 unit Q12HR YESSENIA Administration Sodium Chloride 1,000 mls @ 0 mls/hr 07/09/23 09:05 07/18/23 14:06 0.9% Sodium Chloride 1,000 Ml MISCELLANE 07/08/24 09:04 Infused .Q0M PRN Infusion Dialysis As Directed Insulin Aspart 0 units 07/08/23 22:00 07/21/23 08:25 Insulin Aspart 300 Units/3 Ml Insuln.Pen SUBCUT 07/07/24 21:59 3 units TID.WM.HS YESSENIA Administration Protocol Ipratropium [place] 0.5 mg 07/09/23 08:00 07/21/23 10:12 Ipratropium [place] 0.5 Mg/2.5 Ml Vial.Neb INHALATION 07/08/24 07:59 0.5 mg QID.RESP YESSENIA Administration Lactulose 30 gm 07/08/23 18:10 Lactulose 20 Gm/30 Ml Udc PO 07/07/24 18:09 DAILY PRN Constipation Lidocaine 1 patch 07/08/23 21:00 07/21/23 08:26 Lidocaine 4% Adh..Patch TOPICAL 07/07/24 20:59 1 patch BID YESSENIA Administration Lubiprostone 8 mcg 07/08/23 21:00 07/21/23 08:24 Lubiprostone 8 Mcg Capsule PO 07/07/24 20:59 8 mcg BID YESSENIA Administration Metoprolol Tartrate 12.5 mg 07/09/23 09:00 07/21/23 08:24 Metoprolol Tartrate 12.5 Mg Tablet PO 07/08/24 08:59 12.5 mg DAILY YESSENIA Administration Mexiletine HCl 200 mg 07/08/23 22:00 07/21/23 05:28 Mexiletine 200 Mg Capsule PO 07/07/24 21:59 200 mg Q8HR YESSENIA Administration Midodrine 5 mg 07/09/23 07:00 07/21/23 07:52 Midodrine 5 Mg Tablet PO 07/08/24 06:59 Not Given TID.7A.12P.5P YESSENIA Midodrine 5 mg 07/09/23 14:21 Midodrine 5 Mg Tablet PO 07/08/24 14:20 MoWeFr PRN Hypotension, sbp <90 Multivitamins 1 tab 07/09/23 09:00 07/21/23 08:24 Multivitamin 1 Tab Tablet PO 07/08/24 08:59 1 tab DAILY YESSENIA Administration Nystatin 1 applic 07/11/23 12:45 07/21/23 08:26 Nystatin 100,000 Unit/Gram Powder 15 Gm Bottle TOPICAL 07/10/24 12:44 1 applic BID YESSENIA Administration Oxycodone/Acetaminophen 1 tab 07/18/23 20:36 07/20/23 22:31 Oxycodone/Acetaminophen 5-325 Mg Tablet PO 1 tab Q4H PRN Administration pain Polyethylene Glycol 17 gm 07/08/23 21:00 07/21/23 08:26 Polyethylene Glycol 3350 17 Gm Powd.Pack PO 07/07/24 20:59 17 gm BID YESSENIA Administration Pramipexole Dihydrochloride 0.5 mg 07/08/23 22:00 07/20/23 21:11 Pramipexole 0.5 Mg Tablet PO 07/07/24 21:59 0.5 mg HS YESSENIA Administration Pregabalin 50 mg 07/08/23 21:00 07/21/23 08:24 Pregabalin 50 Mg Capsule PO 01/04/24 20:59 50 mg BID YESSENIA Administration Sennosides 2 tab 07/09/23 12:00 07/15/23 05:20 Sennosides 8.6 Mg Tablet PO 07/08/24 11:59 2 tab DAILY@12 PRN Administration If no BM in 2 days Simethicone 80 mg 07/20/23 05:45 07/20/23 21:11 Simethicone 80 Mg Tab.Chew PO 07/19/24 05:44 80 mg QID PRN Administration Abdominal Distention Sodium Chloride 0 ml 07/08/23 18:10 07/18/23 14:05 Sodium Chloride 0.9 % 10 Ml Syringe IV-PUSH 07/07/24 18:09 10 ml PRN PRN Administration Flush Sodium Chloride 0 ml 07/09/23 09:05 07/16/23 13:38 Sodium Chloride 0.9 % 10 Ml Syringe IV-PUSH 07/08/24 09:04 10 ml PRN PRN Administration Flush Vitamin D 25 mcg 07/09/23 09:00 07/21/23 08:24 Cholecalciferol 25 Mcg (1,000 Units) Tablet PO 07/08/24 08:59 25 mcg DAILY YESSENIA Administration Assessment/Plan Assessment/Plan (1) Odontoid fracture with type II morphology: (2) Chronic hypotension: (3) Cardiomyopathy: (4) COPD (chronic obstructive pulmonary disease): (5) ESRD (end stage renal disease): (6) Odontoid fracture: Qualifiers: Encounter type: subsequent encounter Fracture healing: with delayed healing Fracture type: closed Qualified Code(s): S12.100G - Unspecified displaced fracture of second cervical vertebra, subsequent encounter for fracture with delayed healing (7) Type 2 diabetes mellitus with diabetic chronic kidney disease: (8) Diplopia: Plan Patient is a 78-year-old female with complex past medical history including CAD,DM, ESRD on dialysis who presents to acute inpatient rehabilitation unit with multifactorial functional impairments in the setting of C2 fracture s/p surgicalrepair. * Check CXR, has h/o right pleural effusion, ensure stable/no new issues * Vitals are stable * Dialysis today * Walking with walker. Patient education Pressure ulcer prophylaxis; encourage mobilization, frequent postural changes, pressure-relief techniques DVT prophylaxis Encourage deep breathing exercise incentive spirometry. Monitor bladder. Toileting schedule. Continue current bladder management, with scans as needed and CIC if needed. Start bowel care program every day to obtain continence, prevent ileus. Maintain fall precautions Gait and balance retraining Functional training and self-care and home management, including activities of daily living and instrumental activities of daily living Provision of the necessary gait aids and functional adaptive equipment to enhance the patient's a functional orthodoxy Ensure adequate nutrition and hydration Sleep she has Pain: Continue current regimen Discharge planning: Hopefully home with family next week. FI soon. Patient was personally seen by me, Dr. Johnson, on the day of encounter, reviewed the history and the relevant portions of the chart, including current orders, allied health and sustainability consultant notes, labs/imaging and performed chow elements of exam and I formulated the plan of care and facilitated the medical decision making. I completed a substantive portion of this encounter, the medical decision makingportion of this note in its entirety, including Allied health note review, nursing note review, sustainability consultant note review, discussion with nursing and case management, and more than 50% of my time was spent on counseling and coordination of care, time spent 32 minutes Documented By: Quintin Johnson MD 07/21/231043 Signed By: <Electronically signed by Quintin Johnson MD> 07/21/23 104 [facility] Work Phone: 1(127) 399-580206-08-2024 Progress note Author Paul Eli [facility] July 19, 2023 1:13pm Note Date/Time July 19, 2023 1:13p m [facility] [address] [place] [address] Physiatry(Rehab) Progress Note Signed Patient: Cinthya Wilson MR#: [id number] : 1945 Acct:[id number] Age/Sex: 78 / F Adm Date: 4 Loc: Room: 2L2294-8 Type: ADM IN Attending Dr: Quintin Johnson MD Copies to: ~ Date of Service: 07/19/2023 Subjective Subjective Narrative: Ms. Wilson is a 78 year old female with multiple comorbidities including type IIDM, ESRD on hemodialysis Friday/Friday?Friday, COPD, CHF who presents to acute inpatient rehabilitation unit with functional impairments in the setting of C2 and L1 fractures s/p C1?C3 fixation. Patient reports sustaining a fall after her walker wheel got stuck in a sidewalrevice. She fell backwards again the back of her head. No loss of consciousness. She was able to get herself up. Patient did not seek medical care right away and continued to go about her daily activities for several more days. She started developing upper and lower extremity weakness as well as blurry vision and a headache, which prompted her to seek care. Upon ER evaluation she was found to have an odontoid fracture. Neurosurgery was consulted and recommended an operative intervention. Patient received cardiology clearance prior to procedure due to extensive cardiac history. ICD interrogation demonstrated no significant abnormalities. Nephrology was also consulted for dialysis management. On 07/05/2023 Dr. Weiss performed posterior cervical fusion with C1, C2, C3 fixation without major complications. Patient is to wear c-collar postoperatively. She was evaluated by PT/OT and recommended acute rehab for strengthening. INTERVAL HISTORY: Patient seen today at bedside. Resting in wheelchair in no distress. She states that overall she is doing. Continued neck pain but improving. Seen by neurology with no further inpatient recs. Tolerating therapy. Review of Systems Review of Systems All other systems reviewed & are negative unless noted below or in HPI Exam Physical Exam Vital Signs: Temp Pulse Resp BP Pulse Ox O2 Del Method O2 Flow Rate 98.5 F 68 20 134/64 99 Nasal Cannula 1 07/19/23 08:13 07/19/23 10:22 07/19/23 10:22 07/19/23 12:09 07/19/23 10:23 07/19/23 10:23 07/19/23 10:23 Narrative: Gen: Awake, oriented, cooperative. HEENT: Atraumatic, PERRL, EOMI Resp: No respiratory distress Cardio: Extremities well perfused MSK: Moves all extremities spontaneously. C collar noted Neuro: CN grossly intact Skin: No swelling, erythema, ecchymosis appreciated Psych: Mood and affect normal Objective Labs 07/18/23 07:12 07/18/23 07:12 Labs: Laboratory Results - last 24 hr 07/15/23 07/18/23 07/18/23 05:14 17:15 20:57 POC Glucose 152 234 POC Glucose Comment Acetylchol Rcpt Block Ab 07/19/23 07/19/23 07:25 11:32 POC Glucose 141 238 POC Glucose Comment Glu2: cleaned meter Glu2: cleaned meter Acetylchol Rcpt Block Ab Medications and Allergies Allergies and Active Meds: Allergies lisinopril Allergy (Unknown, Verified 06/30/23 12:32) Cough gabapentin Allergy (Verified 06/30/23 12:32) Swelling of Lip/Tongue/Throat Active Medications Generic Name Dose Route Start Last Admin Trade Name Freq PRN Reason Stop Dose Admin Acetaminophen 500 mg 07/08/23 18:10 07/10/23 13:01 Acetaminophen 500 Mg Tablet PO 07/07/24 18:09 500 mg Q4H PRN Administration Pain Al Hydrox/Mg Hydrox/Simethicone 30 ml 07/08/23 18:10 07/13/23 22:44 Mag Hydrox/Al Hydrox/Simeth 30 Ml Udc PO 07/07/24 18:09 30 ml Q4H PRN Administration Indigestion Albuterol 0.63 mg 07/08/23 19:03 07/13/23 22:40 Albuterol Neb 2.5 Mg/3 Ml Vial.Neb INHALATION 07/07/24 19:02 0.63 mg QID PRN Administration Shortness Of Breath Ammonium Lactate 1 applic 07/15/23 21:30 07/19/23 08:19 Ammonium Lactate 12% Lot 226 Gm Bottle TOPICAL 07/14/24 21:29 1 applic BID YESSENIA Administration Aspirin 81 mg 07/09/23 09:00 07/19/23 08:18 Aspirin 81 Mg Tablet.Dr PO 07/08/24 08:59 81 mg DAILY YESSENIA Administration Atorvastatin Calcium 40 mg 07/08/23 21:00 07/18/23 21:15 Atorvastatin 40 Mg Tablet PO 07/07/24 20:59 40 mg QPM YESSENIA Administration Bisacodyl 10 mg 07/08/23 18:10 Bisacodyl 10 Mg Supp.Rect RI 07/07/24 18:09 DAILY PRN Constipation Budesonide/Formoterol Fumarate 2 puff 07/08/23 21:00 07/19/23 06:20 Budesonide/Formoterol 80-4.5 Mcg 60 Puff/6.9 Gm Hfa.Aer.Ad INHALATION 07/07/24 20:59 2 puff BID YESSENIA Administration Buspirone HCl 10 mg 07/08/23 21:00 07/19/23 08:18 Buspirone 10 Mg Tablet PO 07/07/24 20:59 10 mg BID YESSENIA Administration Calcium Acetate 667 mg 07/09/23 08:00 07/19/23 12:10 Calcium Acetate 667 Mg Capsule PO 07/08/24 07:59 667 mg TID.WITH.MEALS YESSENIA Administration Cephalexin HCl 500 mg 07/18/23 21:00 07/18/23 21:15 Cephalexin 500 Mg Capsule PO 07/25/23 20:59 500 mg QPM YESSENIA Administration Citalopram Hydrobromide 20 mg 07/09/23 09:00 07/19/23 08:18 Citalopram 20 Mg Tablet PO 07/08/24 08:59 20 mg DAILY YESSENIA Administration Darbepoetin Theodore 40 mcg 07/14/23 17:00 07/14/23 18:07 Darbepoetin Theodore In Polysorbat 40 Mcg/Ml Vial IV-PUSH 07/13/24 16:59 Not Given Mo@1700 [facility] Protocol Diclofenac Sodium 4 gm 07/08/23 22:00 07/19/23 08:19 Diclofenac Sodium 1% Gel 100 Gm Tube TOPICAL 07/07/24 21:59 4 gm QID YESSENIA Administration Docusate Sodium 100 mg 07/08/23 18:10 07/15/23 05:20 Docusate 100 Mg Capsule PO 07/07/24 18:09 100 mg BID PRN Administration Constipation Docusate Sodium 283 mg 07/08/23 18:10 Docusate Enema 283 Mg/5 Ml Enema RI 07/07/24 18:09 DAILY PRN Constipation Heparin Sodium (Porcine) 2,000 unit 07/11/23 15:41 07/14/23 13:28 Heparin 10,000 Unit/10 Ml Vial IV 07/10/24 15:40 2,000 unit PRN PRN Administration Dialysis Heparin Sodium (Porcine) 1,000 unit 07/11/23 15:41 07/11/23 16:30 Heparin 10,000 Unit/10 Ml Vial IV 07/10/24 15:40 1,000 unit PRN PRN Administration Dialysis Heparin Sodium (Porcine) 5,000 unit 07/17/23 21:00 07/19/23 08:19 Heparin 5,000 Unit/Ml Vial SUBCUT 07/16/24 20:59 5,000 unit Q12HR YESSENIA Administration Sodium Chloride 1,000 mls @ 0 mls/hr 07/09/23 09:05 07/18/23 14:06 0.9% Sodium Chloride 1,000 Ml MISCELLANE 07/08/24 09:04 Infused .Q0M PRN Infusion Dialysis As Directed Insulin Aspart 0 units 07/08/23 22:00 07/19/23 12:10 Insulin Aspart 300 Units/3 Ml Insuln.Pen SUBCUT 07/07/24 21:59 4 units TID.WM.HS YESSENIA Administration Protocol Ipratropium [place] 0.5 mg 07/09/23 08:00 07/19/23 10:22 Ipratropium [place] 0.5 Mg/2.5 Ml Vial.Neb INHALATION 07/08/24 07:59 0.5 mg QID.RESP YESSENIA Administration Lactulose 30 gm 07/08/23 18:10 Lactulose 20 Gm/30 Ml Udc PO 07/07/24 18:09 DAILY PRN Constipation Lidocaine 1 patch 07/08/23 21:00 07/19/23 08:19 Lidocaine 4% Adh..Patch TOPICAL 07/07/24 20:59 1 patch BID YESSENIA Administration Lubiprostone 8 mcg 07/08/23 21:00 07/19/23 08:19 Lubiprostone 8 Mcg Capsule PO 07/07/24 20:59 8 mcg BID YESSENIA Administration Metoprolol Tartrate 12.5 mg 07/09/23 09:00 07/19/23 08:18 Metoprolol Tartrate 12.5 Mg Tablet PO 07/08/24 08:59 12.5 mg DAILY YESSENIA Administration Mexiletine HCl 200 mg 07/08/23 22:00 07/19/23 06:23 Mexiletine 200 Mg Capsule PO 07/07/24 21:59 200 mg Q8HR YESSENIA Administration Midodrine 5 mg 07/09/23 07:00 07/19/23 12:10 Midodrine 5 Mg Tablet PO 07/08/24 06:59 5 mg TID.7A.12P.5P YESSENIA Administration Midodrine 5 mg 07/09/23 14:21 Midodrine 5 Mg Tablet PO 07/08/24 14:20 MoWeFr PRN Hypotension, sbp <90 Multivitamins 1 tab 07/09/23 09:00 07/19/23 08:18 Multivitamin 1 Tab Tablet PO 07/08/24 08:59 1 tab DAILY YESSENIA Administration Nystatin 1 applic 07/11/23 12:45 07/19/23 08:19 Nystatin 100,000 Unit/Gram Powder 15 Gm Bottle TOPICAL 07/10/24 12:44 1 applic BID YESSENIA Administration Oxycodone/Acetaminophen 1 tab 07/18/23 20:36 07/19/23 08:18 Oxycodone/Acetaminophen 5-325 Mg Tablet PO 1 tab Q4H PRN Administration pain Polyethylene Glycol 17 gm 07/08/23 21:00 07/19/23 08:18 Polyethylene Glycol 3350 17 Gm Powd.Pack PO 07/07/24 20:59 17 gm BID YESSENIA Administration Pramipexole Dihydrochloride 0.5 mg 07/08/23 22:00 07/18/23 21:15 Pramipexole 0.5 Mg Tablet PO 07/07/24 21:59 0.5 mg HS YESSENIA Administration Pregabalin 50 mg 07/08/23 21:00 07/19/23 08:18 Pregabalin 50 Mg Capsule PO 01/04/24 20:59 50 mg BID YESSENIA Administration Sennosides 2 tab 07/09/23 12:00 07/15/23 05:20 Sennosides 8.6 Mg Tablet PO 07/08/24 11:59 2 tab DAILY@12 PRN Administration If no BM in 2 days Sodium Chloride 0 ml 07/08/23 18:10 07/18/23 14:05 Sodium Chloride 0.9 % 10 Ml Syringe IV-PUSH 07/07/24 18:09 10 ml PRN PRN Administration Flush Sodium Chloride 0 ml 07/09/23 09:05 07/16/23 13:38 Sodium Chloride 0.9 % 10 Ml Syringe IV-PUSH 07/08/24 09:04 10 ml PRN PRN Administration Flush Vitamin D 25 mcg 07/09/23 09:00 07/19/23 08:18 Cholecalciferol 25 Mcg (1,000 Units) Tablet PO 07/08/24 08:59 25 mcg DAILY YESSENIA Administration Assessment/Plan Assessment/Plan (1) Odontoid fracture with type II morphology: (2) Chronic hypotension: (3) Cardiomyopathy: (4) COPD (chronic obstructive pulmonary disease): (5) ESRD (end stage renal disease): (6) Odontoid fracture: Qualifiers: Encounter type: subsequent encounter Fracture healing: with delayed healing Fracture type: closed Qualified Code(s): S12.100G - Unspecified displaced fracture of second cervical vertebra, subsequent encounter for fracture with delayed healing (7) Type 2 diabetes mellitus with diabetic chronic kidney disease: (8) Diplopia: Plan Patient is a 78-year-old female with complex past medical history including CAD,DM, ESRD on dialysis who presents to acute inpatient rehabilitation unit with multifactorial functional impairments in the setting of C2 fracture s/p surgicalrepair. * Continue current management * Therapy as ordered * Ambulatory with walker. * Maintain cervical orthosis. * Ok for heparin sq for dvt ppx, no peripheral edema, pain or swelling. Patient education Pressure ulcer prophylaxis; encourage mobilization, frequent postural changes, pressure-relief techniques DVT prophylaxis Encourage deep breathing exercise incentive spirometry. Monitor bladder. Toileting schedule. Continue current bladder management, with scans as needed and CIC if needed. Start bowel care program every day to obtain continence, prevent ileus. Maintain fall precautions Gait and balance retraining Functional training and self-care and home management, including activities of daily living and instrumental activities of daily living Provision of the necessary gait aids and functional adaptive equipment to enhance the patient's a functional orthodoxy Ensure adequate nutrition and hydration Sleep she has Pain: Continue current regimen Discharge planning: Hopefully home with family next week. FI soon. Patient was personally seen by me, Dr. Eli, on the day of encounter, reviewed the history and the relevant portions of the chart, including current orders, allied health and sustainability consultant notes, labs/imaging and performed chow elements of exam and I formulated the plan of care and facilitated the medical decision making. I completed a substantive portion of this encounter, the medical decision makingportion of this note in its entirety, including Allied health note review, nursing note review, sustainability consultant note review, discussion with nursing and case management, and more than 50% of my time was spent on counseling and coordination of care, time spent 25 minutes Documented By: Paul Eli MD [id number] Signed By: <Electronically signed by Paul Eli MD> 07/19/23 1313 [facility] Work Phone: [phone] 850-883906-08-2024 Progress note Author Cesario Venessa [facility] July 19, 2023 12:07pm Note Date/Time July 13, 2023 5:46p m [facility] [address] [place] [address] Hospitalist Progress Note Signed Patient: Cinthya Wilson MR#: [id number] : 1945 Acct:[id number] Age/Sex: 78 / F Adm Date: 4 Loc: Room: 3T8949-9 Type: ADM IN Attending Dr: Quitnin Johnson MD Copies to: ~ Date of Service: 07/13/2023 Subjective Subjective Narrative: Seen and examined at nursing request due left eye vision changes. Complaining of left I am moving to the left and the right with blurry vision when she wears her glasses. Symptoms started today, she denies headache, dizziness, numbness or tingling. No neurofocal deficits noted. Exam Physical Exam Vital Signs: Temp Pulse Resp BP Pulse Ox O2 Del Method O2 Flow Rate 99.5 F H 70 14 136/66 100 Nasal Cannula 2 07/13/23 16:00 07/13/23 16:00 07/13/23 16:00 07/13/23 16:00 07/13/23 16:00 07/13/23 16:00 07/13/23 16:00 Narrative: CONST-frail appearing, alert awake resting comfortably in bed HEAD - Normocephalic and atraumatic EENT-Sclera nonicteric and conjunctive are nonerythemic, moist oral mucosa, pharynx clear NECK-Supple, no cervical lymphadenopathy CARDIAC-normal rate, regular rhythm, normal S1 & S2. PULM-diminished without wheeze or rhonchi, RA, no accessory muscle use or cough noted ABD - Soft. Bowel sounds are normal. No distention No tenderness EXTREM-no edema BLE calves nontender SKIN-fragile, intact MS- MAEX4 spontaneously with equal with equal strength NEURO- A&Ox3 speech clear and tongue midline, equal facial symmetry no focal motor deficits PSYCH-Mood, affect and behavior appropriate Objective Lab Results 07/18/23 07:12 07/18/23 07:12 Meds Allergies and Active Meds Allergies lisinopril Allergy (Unknown, Verified 06/30/23 12:32) Cough gabapentin Allergy (Verified 06/30/23 12:32) Swelling of Lip/Tongue/Throat Active Meds: Active Medications Generic Name Dose Route Start Last Admin Trade Name Molinaq PRN Reason Stop Dose Admin Acetaminophen 500 mg 07/08/23 18:10 07/10/23 13:01 Acetaminophen 500 Mg Tablet PO 07/07/24 18:09 500 mg Q4H PRN Administration Pain Al Hydrox/Mg Hydrox/Simethicone 30 ml 07/08/23 18:10 Mag Hydrox/Al Hydrox/Simeth 30 Ml Udc PO 07/07/24 18:09 Q4H PRN Indigestion Albuterol 0.63 mg 07/08/23 19:03 Albuterol Neb 2.5 Mg/3 Ml Vial.Neb INHALATION 07/07/24 19:02 QID PRN Shortness Of Breath Aspirin 81 mg 07/09/23 09:00 07/13/23 08:45 Aspirin 81 Mg Tablet.Dr PO 07/08/24 08:59 81 mg DAILY YESSENIA Administration Atorvastatin Calcium 40 mg 07/08/23 21:00 07/12/23 21:35 Atorvastatin 40 Mg Tablet PO 07/07/24 20:59 40 mg QPM YESSENIA Administration Bisacodyl 10 mg 07/08/23 18:10 Bisacodyl 10 Mg Supp.Rect RI 07/07/24 18:09 DAILY PRN Constipation Budesonide/Formoterol Fumarate 2 puff 07/08/23 21:00 07/13/23 06:28 Budesonide/Formoterol 80-4.5 Mcg 60 Puff/6.9 Gm Hfa.Aer.Ad INHALATION 07/07/24 20:59 2 puff BID YESSENIA Administration Buspirone HCl 10 mg 07/08/23 21:00 07/13/23 08:45 Buspirone 10 Mg Tablet PO 07/07/24 20:59 10 mg BID YESSENIA Administration Calcium Acetate 667 mg 07/09/23 08:00 07/13/23 17:08 Calcium Acetate 667 Mg Capsule PO 07/08/24 07:59 667 mg TID.WITH.MEALS YESSENIA Administration Citalopram Hydrobromide 20 mg 07/09/23 09:00 07/13/23 08:45 Citalopram 20 Mg Tablet PO 07/08/24 08:59 20 mg DAILY YESSENIA Administration Diclofenac Sodium 4 gm 07/08/23 22:00 07/13/23 17:09 Diclofenac Sodium 1% Gel 100 Gm Tube TOPICAL 07/07/24 21:59 4 gm QID YESSENIA Administration Docusate Sodium 100 mg 07/08/23 18:10 Docusate 100 Mg Capsule PO 07/07/24 18:09 BID PRN Constipation Docusate Sodium 283 mg 07/08/23 18:10 Docusate Enema 283 Mg/5 Ml Enema RI 07/07/24 18:09 DAILY PRN Constipation Heparin Sodium (Porcine) 2,000 unit 07/11/23 15:41 07/11/23 16:30 Heparin 10,000 Unit/10 Ml Vial IV 07/10/24 15:40 2,000 unit PRN PRN Administration Dialysis Heparin Sodium (Porcine) 1,000 unit 07/11/23 15:41 07/11/23 16:30 Heparin 10,000 Unit/10 Ml Vial IV 07/10/24 15:40 1,000 unit PRN PRN Administration Dialysis Sodium Chloride 1,000 mls @ 0 mls/hr 07/09/23 09:05 07/11/23 15:39 0.9% Sodium Chloride 1,000 Ml MISCELLANE 07/08/24 09:04 999 mls/hr .Q0M PRN Administration Dialysis As Directed Insulin Aspart 0 units 07/08/23 22:00 07/13/23 17:08 Insulin Aspart 300 Units/3 Ml Insuln.Pen SUBCUT 07/07/24 21:59 7 units TID.WM.HS YESSENIA Administration Protocol Ipratropium [place] 0.5 mg 07/09/23 08:00 07/13/23 15:37 Ipratropium [place] 0.5 Mg/2.5 Ml Vial.Neb INHALATION 07/08/24 07:59 0.5 mg QID.RESP YESSENIA Administration Lactulose 30 gm 07/08/23 18:10 Lactulose 20 Gm/30 Ml Udc PO 07/07/24 18:09 DAILY PRN Constipation Lidocaine 1 patch 07/08/23 21:00 07/13/23 08:46 Lidocaine 4% Adh..Patch TOPICAL 07/07/24 20:59 1 patch BID YESSENIA Administration Lubiprostone 8 mcg 07/08/23 21:00 07/13/23 08:45 Lubiprostone 8 Mcg Capsule PO 07/07/24 20:59 8 mcg BID YESSENIA Administration Metoprolol Tartrate 12.5 mg 07/09/23 09:00 07/13/23 08:53 Metoprolol Tartrate 12.5 Mg Tablet PO 07/08/24 08:59 Not Given DAILY YESSENIA Mexiletine HCl 200 mg 07/08/23 22:00 07/13/23 13:50 Mexiletine 200 Mg Capsule PO 07/07/24 21:59 200 mg Q8HR YESSENIA Administration Midodrine 5 mg 07/09/23 07:00 07/13/23 17:08 Midodrine 5 Mg Tablet PO 07/08/24 06:59 5 mg TID.7A.12P.5P YESSENIA Administration Midodrine 5 mg 07/09/23 14:21 Midodrine 5 Mg Tablet PO 07/08/24 14:20 MoWeFr PRN Hypotension, sbp <90 Multivitamins 1 tab 07/09/23 09:00 07/13/23 08:45 Multivitamin 1 Tab Tablet PO 07/08/24 08:59 1 tab DAILY YESSENIA Administration Nystatin 1 applic 07/11/23 12:45 07/13/23 08:53 Nystatin 100,000 Unit/Gram Powder 15 Gm Bottle TOPICAL 07/10/24 12:44 1 applic BID YESSENIA Administration Oxycodone/Acetaminophen 1 tab 07/08/23 18:09 07/13/23 14:33 Oxycodone/Acetaminophen 5-325 Mg Tablet PO 1 tab Q6HR PRN Administration pain Polyethylene Glycol 17 gm 07/08/23 21:00 07/13/23 08:46 Polyethylene Glycol 3350 17 Gm Powd.Pack PO 07/07/24 20:59 17 gm BID YESSENIA Administration Pramipexole Dihydrochloride 0.5 mg 07/08/23 22:00 07/12/23 21:35 Pramipexole 0.5 Mg Tablet PO 07/07/24 21:59 0.5 mg HS YESSENIA Administration Pregabalin 50 mg 07/08/23 21:00 07/13/23 08:45 Pregabalin 50 Mg Capsule PO 01/04/24 20:59 50 mg BID YESSENIA Administration Sennosides 2 tab 07/09/23 12:00 Sennosides 8.6 Mg Tablet PO 07/08/24 11:59 DAILY@12 PRN If no BM in 2 days Sodium Chloride 0 ml 07/08/23 18:10 Sodium Chloride 0.9 % 10 Ml Syringe IV-PUSH 07/07/24 18:09 PRN PRN Flush Sodium Chloride 0 ml 07/09/23 09:05 07/11/23 15:39 Sodium Chloride 0.9 % 10 Ml Syringe IV-PUSH 07/08/24 09:04 10 ml PRN PRN Administration Flush Vitamin D 25 mcg 07/09/23 09:00 07/13/23 08:45 Cholecalciferol 25 Mcg (1,000 Units) Tablet PO 07/08/24 08:59 25 mcg DAILY YESSENIA Administration A&P - Hospitalist Assessment/Plan (1) Odontoid fracture with type II morphology: (2) Impaired mobility and activities of daily living: (3) Chronic hypotension: (4) Type 2 diabetes mellitus with diabetic chronic kidney disease: (5) Anemia of renal disease: (6) ESRD (end stage renal disease): Plan Close odontoid fracture secondary to mechanical fall S/p C2 fracture with C2-3/3-4 instability 07/04 S/p Posterior Cervical Decompression with C1-5 Fixation Impaired mobility and activities of daily living * Plan of care for rehabilitation, PT/OT, DVT prophylaxis, bowel regimen per PM&R team Left eye vision changes/blurry vision Will obtain CT head without contrast and consult neurology Chronic conditions: 1. Diastolic heart failure/hypotension?on metoprolol, midodrine, slightly elevated, mostly controlled. Will continue to monitor without any adjustment 2. Type 2 diabetes?on SSI, blood sugars slightly elevated, will check A1c and plan to start long-acting insulin 3. COPD?on albuterol and budesonide/formoterol, home oxygen of 2 L 4. ESRD/diabetic neuropathy/anemia of chronic disease?Nephrology following, adequate iron stores, erythropoietin will be started if Hgb <9 per nephrology 5. History of CAD s/p PCI and cardiac arrhythmias s/p AICD Attending Provider Attestation Attending Physician Attestation: I personally saw this patient on the day of the encounter, reviewed the history,performed the chow elements of the exam, formulated the plan of care and confirmed the MECHANICAL TECH's written note. Documented By: Edie Ferrera APRN 07/13/231743 Signed By: <Electronically signed by NELI Ferrera> 07/13/231752 <Electronically signed by Cesario Clifford MD> 07/19/23 0775 [facility] Work Phone: 1(771) 491-176306-08-2024 Progress note Author Geronimo Graham [facility] July 19, 2023 10:56am Note Date/Time July 18, 2023 11:07 am [facility] [address] [place] [address] Nephrology Progress Note Signed Patient: Cinthya Wilson MR#: [id number] : 1945 Acct:[id number] Age/Sex: 78 / F Adm Date: 4 Loc: Room: [address] [place] [address] Type: ADM IN Attending Dr: Quintin Johnson MD Copies to: ~ Date of Service: 07/18/2023 Subjective Subjective Narrative: This is a 78-year-old female well-known to our service from dialysis unit who isbeing seen in the rehab for management of ESRD and dialysis. 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 Her other comorbidities are CAD s/p PCI, COPD, chronic hypoxic diastolic failure, cardiac arrhythmia s/p AICD and dyslipidemia. She was admitted to [facility] through ER after fall and she was found to have new fracture at the base of the odontoid. There is no intracranial bleeding. Patient underwent surgery on 07/04/2023 and subsequently was moved up to the rehab. Interval history Patient was seen and examined on hemodialysis. Denied worsening breathing. On 1 L/min nasal cannula oxygen saturation 99% Blood pressure is stable with midodrine. Blood pressure 135/65 She has AV fistula with good thrill Patient continues to be significantly above her EDW. Ultrafiltration set at 2.5. There is no peripheral edema No nausea no vomiting. No chest pain. No cough Exam Physical Exam Vital Signs: Temp Pulse Resp BP Pulse Ox O2 Del Method O2 Flow Rate 97.7 F 83 18 167/66 H 98 Nasal Cannula 1 07/18/23 08:20 07/18/23 08:20 07/18/23 08:20 07/18/23 08:20 07/18/23 08:20 07/18/23 08:20 07/18/23 08:20 Narrative: General: No acute distress Head :atraumatic normocephalic Eyes: PERRLA. Neck: . There is color around the neck Heart: S1-S2. RRR Respiratory: Clear to auscultation. No wheezing. No crackles Abdomen: Soft, positive bowel sounds,no tenderness. Neurology: Patient is awake alert oriented x 3 no focal deficits Extremity. No cyanosis. No edema Skin: No skin rash Objective Intake and Output I&O: Intake & Output 07/15/23 07/16/23 07/17/23 07/18/23 23:59 23:59 23:59 23:59 Intake Total 980 / 980 820 / 820 1630 / 1630 320 / 320 Output Total 2815 / 2815 Balance 980 / 980 -1994 / 1630 / 1630 320 / 320 Weight 148 lb 12.992 oz 147 lb 6.4 oz 150 lb 9.211 oz 149 lb 11.102 oz Meds and Allergies Meds: Active Medications Acetaminophen (Acetaminophen 500 Mg Tablet) 500 mg PO Q4H PRN PRN Reason: Pain Stop: 07/07/24 18:09 Last Admin: 07/10/23 13:01 Dose: 500 mg Al Hydrox/Mg Hydrox/Simethicone (Mag Hydrox/Al Hydrox/Simeth 30 Ml Udc) 30 ml PO Q4H PRN PRN Reason: Indigestion Stop: 07/07/24 18:09 Last Admin: 07/13/23 22:44 Dose: 30 ml Albuterol (Albuterol Neb 2.5 Mg/3 Ml Vial.Neb) 0.63 mg INHALATION QID PRN PRN Reason: Shortness Of Breath Stop: 07/07/24 19:02 Last Admin: 07/13/23 22:40 Dose: 0.63 mg Ammonium Lactate (Ammonium Lactate 12% Lot 226 Gm Bottle) 1 applic TOPICAL BID [facility] Stop: 07/14/24 21:29 Last Admin: 07/18/23 10:03 Dose: 1 applic Aspirin (Aspirin 81 Mg Tablet.) 81 mg PO DAILY YESSENIA Stop: 07/08/24 08:59 Last Admin: 07/18/23 08:22 Dose: 81 mg Atorvastatin Calcium (Atorvastatin 40 Mg Tablet) 40 mg PO QPM YESSENIA Stop: 07/07/24 20:59 Last Admin: 07/17/23 22:13 Dose: 40 mg Bisacodyl (Bisacodyl 10 Mg Supp.Rect) 10 mg RI DAILY PRN PRN Reason: Constipation Stop: 07/07/24 18:09 Budesonide/Formoterol Fumarate (Budesonide/Formoterol 80-4.5 Mcg 60 Puff/6.9 Gm Hfa.Aer.Ad) 2 puff INHALATION BID YESSENIA Stop: 07/07/24 20:59 Last Admin: 07/18/23 05:14 Dose: 2 puff Buspirone HCl (Buspirone 10 Mg Tablet) 10 mg PO BID YESSENIA Stop: 07/07/24 20:59 Last Admin: 07/18/23 08:22 Dose: 10 mg Calcium Acetate (Calcium Acetate 667 Mg Capsule) 667 mg PO TID.WITH.MEALS YESSENIA Stop: 07/08/24 07:59 Last Admin: 07/18/23 08:22 Dose: 667 mg Cephalexin HCl (Cephalexin 500 Mg Capsule) 500 mg PO QPM [facility] Stop: 07/25/23 20:59 Citalopram Hydrobromide (Citalopram 20 Mg Tablet) 20 mg PO DAILY [facility] Stop: 07/08/24 08:59 Last Admin: 07/18/23 08:22 Dose: 20 mg Darbepoetin Theodore (Darbepoetin Theodore In Polysorbat 40 Mcg/Ml Vial) 40 mcg IV-PUSHMo@1700 YESSENIA; Protocol Stop: 07/13/24 16:59 Last Admin: 07/14/23 18:07 Dose: Not Given Diclofenac Sodium (Diclofenac Sodium 1% Gel 100 Gm Tube) 4 gm TOPICAL QID [facility] Stop: 07/07/24 21:59 Last Admin: 07/18/23 08:22 Dose: 4 gm Docusate Sodium (Docusate 100 Mg Capsule) 100 mg PO BID PRN PRN Reason: Constipation Stop: 07/07/24 18:09 Last Admin: 07/15/23 05:20 Dose: 100 mg Docusate Sodium (Docusate Enema 283 Mg/5 Ml Enema) 283 mg RI DAILY PRN PRN Reason: Constipation Stop: 07/07/24 18:09 Heparin Sodium (Porcine) (Heparin 10,000 Unit/10 Ml Vial) 2,000 unit IV PRN PRN PRN Reason: Dialysis Stop: 07/10/24 15:40 Last Admin: 07/14/23 13:28 Dose: 2,000 unit Heparin Sodium (Porcine) (Heparin 10,000 Unit/10 Ml Vial) 1,000 unit IV PRN PRN PRN Reason: Dialysis Stop: 07/10/24 15:40 Last Admin: 07/11/23 16:30 Dose: 1,000 unit Heparin Sodium (Porcine) (Heparin 5,000 Unit/Ml Vial) 5,000 unit SUBCUT Q12HR [facility] Stop: 07/16/24 20:59 Last Admin: 07/18/23 08:22 Dose: 5,000 unit Sodium Chloride (0.9% Sodium Chloride 1,000 Ml) 1,000 mls @ 0 mls/hr MISCELLANE.Q0M PRN PRN Reason: Dialysis Stop: 07/08/24 09:04 Last Infusion: 07/16/23 13:41 Dose: Infused Insulin Aspart (Insulin Aspart 300 Units/3 Ml Insuln.Pen) 0 units SUBCUT TID.WM.HS [facility]; Protocol Stop: 07/07/24 21:59 Last Admin: 07/18/23 08:22 Dose: Not Given Ipratropium [place] (Ipratropium [place] 0.5 Mg/2.5 Ml Vial.Neb) 0.5 mg INHALATION QID.RESP YESSENIA Stop: 07/08/24 07:59 Last Admin: 07/18/23 05:14 Dose: 0.5 mg Lactulose (Lactulose 20 Gm/30 Ml Udc) 30 gm PO DAILY PRN PRN Reason: Constipation Stop: 07/07/24 18:09 Lidocaine (Lidocaine 4% Adh..Patch) 1 patch TOPICAL BID [facility] Stop: 07/07/24 20:59 Last Admin: 07/18/23 08:23 Dose: 1 patch Lubiprostone (Lubiprostone 8 Mcg Capsule) 8 mcg PO BID [facility] Stop: 07/07/24 20:59 Last Admin: 07/18/23 08:21 Dose: 8 mcg Metoprolol Tartrate (Metoprolol Tartrate 12.5 Mg Tablet) 12.5 mg PO DAILY [facility] Stop: 07/08/24 08:59 Last Admin: 07/18/23 08:22 Dose: 12.5 mg Mexiletine HCl (Mexiletine 200 Mg Capsule) 200 mg PO Q8HR [facility] Stop: 07/07/24 21:59 Last Admin: 07/18/23 06:22 Dose: 200 mg Midodrine (Midodrine 5 Mg Tablet) 5 mg PO TID.7A.12P.5P [facility] Stop: 07/08/24 06:59 Last Admin: 07/18/23 06:24 Dose: Not Given Midodrine (Midodrine 5 Mg Tablet) 5 mg PO MoWeFr PRN PRN Reason: Hypotension, sbp <90 Stop: 07/08/24 14:20 Multivitamins (Multivitamin 1 Tab Tablet) 1 tab PO DAILY [facility] Stop: 07/08/24 08:59 Last Admin: 07/18/23 08:21 Dose: 1 tab Nystatin (Nystatin 100,000 Unit/Gram Powder 15 Gm Bottle) 1 applic TOPICAL BID [facility] Stop: 07/10/24 12:44 Last Admin: 07/18/23 08:23 Dose: 1 applic Oxycodone/Acetaminophen (Oxycodone/Acetaminophen 5-325 Mg Tablet) 1 tab PO [id number] PRN Reason: pain Last Admin: 07/18/23 06:22 Dose: 1 tab Polyethylene Glycol (Polyethylene Glycol 3350 17 Gm Powd.Pack) 17 gm PO BID YESSENIA Stop: 07/07/24 20:59 Last Admin: 07/18/23 08:23 Dose: 17 gm Pramipexole Dihydrochloride (Pramipexole 0.5 Mg Tablet) 0.5 mg PO HS YESSENIA Stop: 07/07/24 21:59 Last Admin: 07/17/23 22:12 Dose: 0.5 mg Pregabalin (Pregabalin 50 Mg Capsule) 50 mg PO BID YESSENIA Stop: 01/04/24 20:59 Last Admin: 07/18/23 08:22 Dose: 50 mg Sennosides (Sennosides 8.6 Mg Tablet) 2 tab PO DAILY@12 PRN PRN Reason: If no BM in 2 days Stop: 07/08/24 11:59 Last Admin: 07/15/23 05:20 Dose: 2 tab Sodium Chloride (Sodium Chloride 0.9 % 10 Ml Syringe) 0 ml IV-PUSH PRN PRN PRN Reason: Flush Stop: 07/07/24 18:09 Sodium Chloride (Sodium Chloride 0.9 % 10 Ml Syringe) 0 ml IV-PUSH PRN PRN PRN Reason: Flush Stop: 07/08/24 09:04 Last Admin: 07/16/23 13:38 Dose: 10 ml Vitamin D (Cholecalciferol 25 Mcg (1,000 Units) Tablet) 25 mcg PO DAILY YESSENIA Stop: 07/08/24 08:59 Last Admin: 07/18/23 08:22 Dose: 25 mcg Allergies lisinopril Allergy (Unknown, Verified 06/30/23 12:32) Cough gabapentin Allergy (Verified 06/30/23 12:32) Swelling of Lip/Tongue/Throat Results - Nephrology Labs 07/18/23 07:12 07/18/23 07:12 Labs: 07/18/23 07:12 BUN 38 H Creatinine 4.01 H Phosphorus 3.4 Albumin 3.3 L Radiology Impressions Impressions - last 24 hours: Any impression(s) listed above is documentation that was entered by the reading physician into a diagnostic report(s) for Cinthya Wilson. I have reviewed the report(s) and am incorporating any findings in the treatment plan of this patient where applicable. 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 She currently goes to the [facility] dialysis unit on MWF schedule. (2) Odontoid fracture: Assessment/Problem Details: Patient presents after a fall and was found to have odontoid fracture. She underwent the surgery on 07/04/2023. (3) Type 2 diabetes mellitus with diabetic chronic kidney disease: Assessment/Problem Details: She has insulin-dependent type 2 diabetes mellitus. (4) Secondary hyperparathyroidism: Assessment/Problem Details: She has secondary hyperparathyroidism due to the ESRD and hyperphosphatemia. She currently takes calcium acetate at home. 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 She takes midodrine for intradialytic hypotension. Plan * Hemodialysis today for 210 minutes, 2K bath. Blood flow rate 350, dialysate flow rate 500. Ultrafiltration 2.5 L .Continue midodrine 5 mg as needed for systolic blood pressure below 90s. * Patient gets hemodialysis with no heparin since she just had surgery on 07/03,. Noted a drop in hemoglobin to 9.0 g deciliter in July 13. Hemoglobin has been stable since then. Hemoglobin from today is 9.3 g deciliter * She has adequate iron stores. Will continue Aranesp 40 mcg q. Friday * Continue home dose of the calcium acetate. * Monitor CBC and renal panel before dialysis on MWF schedule. Documented By: Geronimo Graham MD 07/18/23 1106 Signed By: <Electronically signed by Geronimo Graham MD> 07/19/23 1056 [facility] Work Phone: 1(846) 260-929506-07-2024 Progress note Author Danny Mcclelland [facility] July 18, 2023 3:32pm Note Date/Time July 18, 2023 3:32p m [facility] [address] [place] [address] Neurology Progress Note Signed Patient: Cinthya Wilson MR#: [id number] : 1945 Acct:[id number] Age/Sex: 78 / F Adm Date: 4 Loc: Room: 2J8373-4 Type: ADM IN Attending Dr: Quintin Johnson MD Copies to: ~ Date of Service: 07/18/2023 Exam Physical Exam Vital Signs: Temp Pulse Resp BP Pulse Ox O2 Del Method O2 Flow Rate 97.1 F L 62 16 117/53 L 100 Nasal Cannula 2 07/18/23 12:36 07/18/23 14:00 07/18/23 12:36 07/18/23 14:00 07/18/23 12:36 07/18/23 12:36 07/18/23 12:36 Objective Vital Signs Vital Signs: Vital Signs - 24 hr 07/17/23 16:00 07/17/23 16:10 07/17/23 16:17 Temperature Pulse Rate 75 74 Pulse Rate [Monitor] Respiratory Rate 20 20 Blood Pressure Blood Pressure [Right Arm] 02 Sat by Pulse Oximetry Oxygen Delivery Method Nasal Cannula Oxygen Flow Rate 1 07/17/23 17:07 07/17/23 20:22 07/17/23 20:31 Temperature Pulse Rate 76 74 Pulse Rate [Monitor] Respiratory Rate 20 20 Blood Pressure 134/54 L Blood Pressure [Right Arm] 02 Sat by Pulse Oximetry Oxygen Delivery Method Oxygen Flow Rate 07/17/23 23:30 07/18/23 00:00 07/18/23 05:15 Temperature Pulse Rate 81 Pulse Rate [Monitor] Respiratory Rate 20 Blood Pressure Blood Pressure [Right Arm] 02 Sat by Pulse Oximetry Oxygen Delivery Method Nasal Cannula Nasal Cannula Oxygen Flow Rate 2 1 07/18/23 06:27 07/18/23 08:00 07/18/23 08:20 Temperature 97.8 F 97.7 F Pulse Rate 84 83 Pulse Rate [Monitor] Respiratory Rate 16 18 Blood Pressure 135/70 167/66 H Blood Pressure [Right Arm] 02 Sat by Pulse Oximetry 99 98 Oxygen Delivery Method Nasal Cannula Nasal Cannula Nasal Cannula Oxygen Flow Rate 2 1 1 07/18/23 11:32 07/18/23 12:20 07/18/23 12:36 Temperature 97.1 F L Pulse Rate Pulse Rate [Monitor] 71 Respiratory Rate 16 Blood Pressure 117/66 Blood Pressure [Right Arm] 121/55 L 02 Sat by Pulse Oximetry 100 Oxygen Delivery Method Nasal Cannula Nasal Cannula Oxygen Flow Rate 2 2 07/18/23 13:30 07/18/23 14:00 Temperature Pulse Rate Pulse Rate [Monitor] 74 62 Respiratory Rate Blood Pressure Blood Pressure [Right Arm] 103/56 L 117/53 L 02 Sat by Pulse Oximetry Oxygen Delivery Method Oxygen Flow Rate Labs 07/18/23 07:12 07/18/23 07:12 Therapy Recommendations Therapy Recommendations: PT Recommendations PT Recommended Discharge Home with Home Health,Home with Outpatient Location PT Recommended Services at Physical Therapy Discharge ST Recommendations Level of Supervision Independent Self Feeding Liquid Consistency Thin Liquids Recommendation Solid Consistency Regular Solids Recommendations Meat Consistency Whole Meats,Extra Bowl of Gravy Recommendations Medication Administration Whole Pills,Give Pills in Applesauce,Give Pills with Water Dysphagia Swallow Precautions/ Sitting Upright (90 deg),Small Bites/Sips,Pacing Strategies /Slow-Rate ST Recommended Services at Speech Therapy Discharge Assessment/Plan (1) Diplopia: Plan CONSULT REASON: Diplopia SUBJECTIVE: I went to visit with her while she was having dialysis done. Dialysis was uneventful up to that point. She says that her vision changes are less and lessnoticeable day by day. She still feels like if she is looking down at somethingthe image from her left thigh seems to drift somewhat inferior to the image fromthe right eye. I cannot outwardly see this. No other new complaints. Has not had any eye pain. No significant headaches. Still in a neck brace. EXAMINATION: In neck brace. Limbs seem well-perfused. No significant edema. Normal work ofbreathing. Visualized skin is generally intact and without lesions aside from age-related findings. Affect normal. Patient is alert. Attention normal. Speech is fluent and nondysarthric. Pupils are equal, small, fixed. Ocular motility is full. I do not see any disconjugate gaze. With extraocular movements I cannot reproduce her diplopia. No nystagmus. Facial sensation is normal. Hearing is normal. Facial strength is normal. Tongue is midline. No focal muscle weakness. No tremors. Sensation intact in all limbs. 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 -Head CT was nonacute ASSESSMENT: 78-year-old woman with history of a lower cervical fusion who had a fall and sustained an odontoid fracture and is status post C1-C3 hardware fixation on [address] Weiss. Now reporting binocular diplopia that is gradually improving. Seems to be worstwhen looking down to read something. She thinks her glasses might make it worse. It also seems to fluctuate. On examination, I do not appreciate any disconjugate gaze. When I have her look at a point of light in all cardinal directions I cannot reproduce her diplopia. And I cannot elicit convergence insufficiency. My top considerations would be ocular myasthenia gravis (she does think she is having fluctuating eyelid ptosis) or a microvascular III/IV/ cranial nerve palsy. Fairly low suspicion for any acute cerebrovascular disease or other brainstem lesion but she does have plenty of risk factors for vascular disease, including diabetes, ESRD, CAD, sleep apnea. PLAN: 1. No current plans for MR imaging. 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 Would be difficult given her recent neck history on the neck bracing. 2. Continue the aspirin 81 mg daily and the atorvastatin 40 mg daily 3. Some of the neuromuscular junction lab work is still pending. Acetylcholinereceptor blocking antibodies were 21%, acetylcholine receptor binding antibodieswere undetected, and muscle specific kinase and acetylcholine receptor modulating antibodies are still pending. 4. Outpatient neurology follow-up; no other recommendations at this time Documented By: Danny Mcclelland DO 07/18/23 1528 Signed By: <Electronically signed by Danny Mcclelland DO> 07/18/23 1532 [facility] Work Phone: 1(367) 727-230206-06-2024 Progress note Author Quintin Johnson [facility] July 17, 2023 10:42am Note Date/Time July 17, 2023 10:42 am [facility] [address] [place] [address] Physiatry(Rehab) Progress Note Signed Patient: Cinthya Wilson MR#: [id number] : 1945 Acct:[id number] Age/Sex: 78 / F Adm Date: 4 Loc: Room: [address] [place] [address] Type: ADM IN Attending Dr: Quintin Johnson MD Copies to: ~ Date of Service: 07/17/2023 Subjective Subjective Narrative: Ms. Wilson is a 78 year old female with multiple comorbidities including type IIDM, ESRD on hemodialysis Friday/Friday?Friday, COPD, CHF who presents to acute inpatient rehabilitation unit with functional impairments in the setting of C2 and L1 fractures s/p C1?C3 fixation. Patient reports sustaining a fall after her walker wheel got stuck in a sidewalkcrevice. She fell backwards again the back of her head. No loss of consciousness. She was able to get herself up. Patient did not seek medical care right away and continued to go about her daily activities for several more days. She started developing upper and lower extremity weakness as well as blurry vision and a headache, which prompted her to seek care. Upon ER evaluation she was found to have an odontoid fracture. Neurosurgery was consulted and recommended an operative intervention. Patient received cardiology clearance prior to procedure due to extensive cardiac history. ICD interrogation demonstrated no significant abnormalities. Nephrology was also consulted for dialysis management. On 07/05/2023 Dr. Weiss performed posterior cervical fusion with C1, C2, C3 fixation without major complications. Patient is to wear c-collar postoperatively. She was evaluated by PT/OT and recommended acute rehab for strengthening. INTERVAL HISTORY: Reports still some diplopia with close objects but overall improved. Transfers are still difficult, although once she's up she can ambulate with walker. Vitals stable. Pain controlled. Moving bowel/bladder. Review of Systems Review of Systems All other systems reviewed & are negative unless noted below or in HPI Exam Physical Exam Vital Signs: Temp Pulse Resp BP Pulse Ox O2 Del Method O2 Flow Rate 98.3 F 89 17 129/57 L 88 L Nasal Cannula 2 07/17/23 08:00 07/17/23 08:00 07/17/23 08:00 07/17/23 08:00 07/17/23 08:00 07/17/23 08:00 07/17/23 08:00 Narrative: Gen: Awake, oriented, cooperative. HEENT: Atraumatic, PERRL, EOMI Resp: No respiratory distress Cardio: Extremities well perfused MSK: Moves all extremities spontaneously. C collar noted Neuro: CN grossly intact Skin: No swelling, erythema, ecchymosis appreciated Psych: Mood and affect normal Objective Labs 07/15/23 05:14 07/15/23 05:14 Labs: Laboratory Results - last 24 hr 07/16/23 07/16/23 07/16/23 12:13 17:09 20:42 POC Glucose 168 124 214 07/17/23 06:39 POC Glucose 156 Medications and Allergies Allergies and Active Meds: Allergies lisinopril Allergy (Unknown, Verified 06/30/23 12:32) Cough gabapentin Allergy (Verified 06/30/23 12:32) Swelling of Lip/Tongue/Throat Active Medications Generic Name Dose Route Start Last Admin Trade Name Freq PRN Reason Stop Dose Admin Acetaminophen 500 mg 07/08/23 18:10 07/10/23 13:01 Acetaminophen 500 Mg Tablet PO 07/07/24 18:09 500 mg Q4H PRN Administration Pain Al Hydrox/Mg Hydrox/Simethicone 30 ml 07/08/23 18:10 07/13/23 22:44 Mag Hydrox/Al Hydrox/Simeth 30 Ml Udc PO 07/07/24 18:09 30 ml Q4H PRN Administration Indigestion Albuterol 0.63 mg 07/08/23 19:03 07/13/23 22:40 Albuterol Neb 2.5 Mg/3 Ml Vial.Neb INHALATION 07/07/24 19:02 0.63 mg QID PRN Administration Shortness Of Breath Ammonium Lactate 1 applic 07/15/23 21:30 07/17/23 09:32 Ammonium Lactate 12% Lot 226 Gm Bottle TOPICAL 07/14/24 21:29 Not Given BID YESSENIA Aspirin 81 mg 07/09/23 09:00 07/17/23 09:11 Aspirin 81 Mg Tablet. PO 07/08/24 08:59 81 mg DAILY YESSENIA Administration Atorvastatin Calcium 40 mg 07/08/23 21:00 07/16/23 20:53 Atorvastatin 40 Mg Tablet PO 07/07/24 20:59 40 mg QPM YESSENIA Administration Bisacodyl 10 mg 07/08/23 18:10 Bisacodyl 10 Mg Supp.Rect RI 07/07/24 18:09 DAILY PRN Constipation Budesonide/Formoterol Fumarate 2 puff 07/08/23 21:00 07/17/23 05:30 Budesonide/Formoterol 80-4.5 Mcg 60 Puff/6.9 Gm Hfa.Aer.Ad INHALATION 07/07/24 20:59 2 puff BID YESSENIA Administration Buspirone HCl 10 mg 07/08/23 21:00 07/17/23 09:14 Buspirone 10 Mg Tablet PO 07/07/24 20:59 10 mg BID YESSENIA Administration Calcium Acetate 667 mg 07/09/23 08:00 07/17/23 09:13 Calcium Acetate 667 Mg Capsule PO 07/08/24 07:59 667 mg TID.WITH.MEALS YESSENIA Administration Citalopram Hydrobromide 20 mg 07/09/23 09:00 07/17/23 09:14 Citalopram 20 Mg Tablet PO 07/08/24 08:59 20 mg DAILY [facility] Administration Darbepoetin Theodore 40 mcg 07/14/23 17:00 07/14/23 18:07 Darbepoetin Theodore In Polysorbat 40 Mcg/Ml Vial IV-PUSH 07/13/24 16:59 Not Given Mo@1700 [facility] Protocol Diclofenac Sodium 4 gm 07/08/23 22:00 07/17/23 09:16 Diclofenac Sodium 1% Gel 100 Gm Tube TOPICAL 07/07/24 21:59 4 gm QID YESSENIA Administration Docusate Sodium 100 mg 07/08/23 18:10 07/15/23 05:20 Docusate 100 Mg Capsule PO 07/07/24 18:09 100 mg BID PRN Administration Constipation Docusate Sodium 283 mg 07/08/23 18:10 Docusate Enema 283 Mg/5 Ml Enema RI 07/07/24 18:09 DAILY PRN Constipation Heparin Sodium (Porcine) 2,000 unit 07/11/23 15:41 07/14/23 13:28 Heparin 10,000 Unit/10 Ml Vial IV 07/10/24 15:40 2,000 unit PRN PRN Administration Dialysis Heparin Sodium (Porcine) 1,000 unit 07/11/23 15:41 07/11/23 16:30 Heparin 10,000 Unit/10 Ml Vial IV 07/10/24 15:40 1,000 unit PRN PRN Administration Dialysis Sodium Chloride 1,000 mls @ 0 mls/hr 07/09/23 09:05 07/16/23 13:41 0.9% Sodium Chloride 1,000 Ml MISCELLANE 07/08/24 09:04 Infused .Q0M PRN Infusion Dialysis As Directed Insulin Aspart 0 units 07/08/23 22:00 07/17/23 09:17 Insulin Aspart 300 Units/3 Ml Insuln.Pen SUBCUT 07/07/24 21:59 3 units TID.WM.HS YESSENIA Administration Protocol Ipratropium [place] 0.5 mg 07/09/23 08:00 07/17/23 05:31 Ipratropium [place] 0.5 Mg/2.5 Ml Vial.Neb INHALATION 07/08/24 07:59 0.5 mg QID.RESP YESSENIA Administration Lactulose 30 gm 07/08/23 18:10 Lactulose 20 Gm/30 Ml Udc PO 07/07/24 18:09 DAILY PRN Constipation Lidocaine 1 patch 07/08/23 21:00 07/17/23 09:14 Lidocaine 4% Adh..Patch TOPICAL 07/07/24 20:59 1 patch BID YESSENIA Administration Lubiprostone 8 mcg 07/08/23 21:00 07/17/23 09:12 Lubiprostone 8 Mcg Capsule PO 07/07/24 20:59 8 mcg BID YESSENIA Administration Metoprolol Tartrate 12.5 mg 07/09/23 09:00 07/17/23 09:11 Metoprolol Tartrate 12.5 Mg Tablet PO 07/08/24 08:59 12.5 mg DAILY YESSENIA Administration Mexiletine HCl 200 mg 07/08/23 22:00 07/17/23 06:32 Mexiletine 200 Mg Capsule PO 07/07/24 21:59 200 mg Q8HR YESSENIA Administration Midodrine 5 mg 07/09/23 07:00 07/17/23 06:32 Midodrine 5 Mg Tablet PO 07/08/24 06:59 5 mg TID.7A.12P.5P YESSENIA Administration Midodrine 5 mg 07/09/23 14:21 Midodrine 5 Mg Tablet PO 07/08/24 14:20 MoWeFr PRN Hypotension, sbp <90 Multivitamins 1 tab 07/09/23 09:00 07/17/23 09:12 Multivitamin 1 Tab Tablet PO 07/08/24 08:59 1 tab DAILY YESSENIA Administration Nystatin 1 applic 07/11/23 12:45 07/17/23 09:19 Nystatin 100,000 Unit/Gram Powder 15 Gm Bottle TOPICAL 07/10/24 12:44 1 applic BID YESSENIA Administration Oxycodone/Acetaminophen 1 tab 07/08/23 18:09 07/17/23 00:39 Oxycodone/Acetaminophen 5-325 Mg Tablet PO 1 tab Q6HR PRN Administration pain Polyethylene Glycol 17 gm 07/08/23 21:00 07/17/23 09:16 Polyethylene Glycol 3350 17 Gm Powd.Pack PO 07/07/24 20:59 17 gm BID YESSENIA Administration Pramipexole Dihydrochloride 0.5 mg 07/08/23 22:00 07/16/23 20:52 Pramipexole 0.5 Mg Tablet PO 07/07/24 21:59 0.5 mg HS YESSENIA Administration Pregabalin 50 mg 07/08/23 21:00 07/17/23 09:13 Pregabalin 50 Mg Capsule PO 01/04/24 20:59 50 mg BID YESSENIA Administration Sennosides 2 tab 07/09/23 12:00 07/15/23 05:20 Sennosides 8.6 Mg Tablet PO 07/08/24 11:59 2 tab DAILY@12 PRN Administration If no BM in 2 days Sodium Chloride 0 ml 07/08/23 18:10 Sodium Chloride 0.9 % 10 Ml Syringe IV-PUSH 07/07/24 18:09 PRN PRN Flush Sodium Chloride 0 ml 07/09/23 09:05 07/16/23 13:38 Sodium Chloride 0.9 % 10 Ml Syringe IV-PUSH 07/08/24 09:04 10 ml PRN PRN Administration Flush Vitamin D 25 mcg 07/09/23 09:00 07/17/23 09:13 Cholecalciferol 25 Mcg (1,000 Units) Tablet PO 07/08/24 08:59 25 mcg DAILY YESSENIA Administration Assessment/Plan Assessment/Plan (1) Odontoid fracture with type II morphology: (2) Chronic hypotension: (3) Cardiomyopathy: (4) COPD (chronic obstructive pulmonary disease): (5) ESRD (end stage renal disease): (6) Odontoid fracture: Qualifiers: Encounter type: subsequent encounter Fracture healing: with delayed healing Fracture type: closed Qualified Code(s): S12.100G - Unspecified displaced fracture of second cervical vertebra, subsequent encounter for fracture with delayed healing (7) Type 2 diabetes mellitus with diabetic chronic kidney disease: (8) Diplopia: Plan Patient is a 78-year-old female with complex past medical history including CAD,DM, ESRD on dialysis who presents to acute inpatient rehabilitation unit with multifactorial functional impairments in the setting of C2 fracture s/p surgicalrepair. * Continue current management * Therapy as ordered * Ambulatory with walker. * Maintain cervical orthosis. * Ok for heparin sq for dvt ppx, no peripheral edema, pain or swelling. Patient education Pressure ulcer prophylaxis; encourage mobilization, frequent postural changes, pressure-relief techniques DVT prophylaxis Encourage deep breathing exercise incentive spirometry. Monitor bladder. Toileting schedule. Continue current bladder management, with scans as needed and CIC if needed. Start bowel care program every day to obtain continence, prevent ileus. Maintain fall precautions Gait and balance retraining Functional training and self-care and home management, including activities of daily living and instrumental activities of daily living Provision of the necessary gait aids and functional adaptive equipment to enhance the patient's a functional orthodoxy Ensure adequate nutrition and hydration Sleep she has Pain: Continue current regimen Discharge planning: Hopefully home with family next week. FI soon. Patient was personally seen by me, Dr. Johnson, on the day of encounter, reviewed the history and the relevant portions of the chart, including current orders, allied health and sustainability consultant notes, labs/imaging and performed chow elements of exam and I formulated the plan of care and facilitated the medical decision making. I completed a substantive portion of this encounter, the medical decision makingportion of this note in its entirety, including Allied health note review, nursing note review, sustainability consultant note review, discussion with nursing and case management, and more than 50% of my time was spent on counseling and coordination of care, time spent 25 minutes Documented By: Quintin Johnson MD 07/17/23 1039 Signed By: <Electronically signed by Quintin Johnson MD> 07/17/23 1042 [facility] Work Phone: [phone]) 500-802306-05-2024 Progress note Author Geronimo Graham [facility] July 16, 2023 2:15pm Note Date/Time July 16, 2023 2:15p m [facility] [address] [place] [address] Nephrology Progress Note Signed Patient: Cinthya Wilson MR#: [id number] : 1945 Acct:[id number] Age/Sex: 78 / F Adm Date: 4 Loc: Room: 0N5030-6 Type: ADM IN Attending Dr: Quintin Johnson MD Copies to: ~ Date of Service: 07/16/2023 Subjective Subjective Narrative: This is a 78-year-old female well-known to our service from dialysis unit who isbeing seen in the rehab for management of ESRD and dialysis. 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 Her other comorbidities are CAD s/p PCI, COPD, chronic hypoxic diastolic failure, cardiac arrhythmia s/p AICD and dyslipidemia. She was admitted to [facility] through ER after fall and she was found to have new fracture at the base of the odontoid. There is no intracranial bleeding. Patient underwent surgery on 07/04/2023 and subsequently was moved up to the rehab. Interval history Patient was seen and examined on hemodialysis. Patient is AA0X3. Denied worsening breathing. On RA Oxygen saturation 98% Blood pressure is stable with midodrine. She has AV fistula with good thrill Patient is about 7 kg above her EDW as better today weight. Ultrafiltration setat 2.5. There is no peripheral edema No nausea no vomiting. No chest pain. No cough Exam Physical Exam Vital Signs: Temp Pulse Resp BP Pulse Ox O2 Del Method O2 Flow Rate 97.2 F L 72 18 126/72 98 Room Air 2 07/16/23 12:40 07/16/23 14:01 07/16/23 12:40 07/16/23 14:01 07/16/23 12:40 07/16/23 12:40 07/16/23 08:00 Narrative: General: No acute distress Head :atraumatic normocephalic Eyes: PERRLA. Neck: . There is color around the neck Heart: S1-S2. RRR Respiratory: Clear to auscultation. No wheezing. No crackles Abdomen: Soft, positive bowel sounds,no tenderness. Neurology: Patient is awake alert oriented x 3 no focal deficits Extremity. No cyanosis. No edema Skin: No skin rash Objective Intake and Output I&O: Intake & Output 07/13/23 07/14/23 07/15/23 07/16/23 23:59 23:59 23:59 23:59 Intake Total 1240 / 1240 1440 / 1440 980 / 980 700 / 700 Output Total 2939 / 2939 Balance 1240 / 1240 -1499 / -1499 980 / 980 700 / 700 Weight 138 lb 10.732 oz 150 lb 9.211 oz 148 lb 12.992 oz 147 lb 6.4 oz Meds and Allergies Meds: Active Medications Acetaminophen (Acetaminophen 500 Mg Tablet) 500 mg PO Q4H PRN PRN Reason: Pain Stop: 07/07/24 18:09 Last Admin: 07/10/23 13:01 Dose: 500 mg Al Hydrox/Mg Hydrox/Simethicone (Mag Hydrox/Al Hydrox/Simeth 30 Ml Udc) 30 ml PO Q4H PRN PRN Reason: Indigestion Stop: 07/07/24 18:09 Last Admin: 07/13/23 22:44 Dose: 30 ml Albuterol (Albuterol Neb 2.5 Mg/3 Ml Vial.Neb) 0.63 mg INHALATION QID PRN PRN Reason: Shortness Of Breath Stop: 07/07/24 19:02 Last Admin: 07/13/23 22:40 Dose: 0.63 mg Ammonium Lactate (Ammonium Lactate 12% Lot 226 Gm Bottle) 1 applic TOPICAL BID [facility] Stop: 07/14/24 21:29 Last Admin: 07/16/23 08:20 Dose: 1 applic Aspirin (Aspirin 81 Mg Tablet.) 81 mg PO DAILY YESSENIA Stop: 07/08/24 08:59 Last Admin: 07/16/23 08:20 Dose: 81 mg Atorvastatin Calcium (Atorvastatin 40 Mg Tablet) 40 mg PO QPM YESSENIA Stop: 07/07/24 20:59 Last Admin: 07/15/23 22:22 Dose: 40 mg Bisacodyl (Bisacodyl 10 Mg Supp.Rect) 10 mg RI DAILY PRN PRN Reason: Constipation Stop: 07/07/24 18:09 Budesonide/Formoterol Fumarate (Budesonide/Formoterol 80-4.5 Mcg 60 Puff/6.9 Gm Hfa.Aer.Ad) 2 puff INHALATION BID YESSENIA Stop: 07/07/24 20:59 Last Admin: 07/16/23 05:48 Dose: 2 puff Buspirone HCl (Buspirone 10 Mg Tablet) 10 mg PO BID YESSENIA Stop: 07/07/24 20:59 Last Admin: 07/16/23 08:20 Dose: 10 mg Calcium Acetate (Calcium Acetate 667 Mg Capsule) 667 mg PO TID.WITH.MEALS [facility] Stop: 07/08/24 07:59 Last Admin: 07/16/23 12:10 Dose: 667 mg Citalopram Hydrobromide (Citalopram 20 Mg Tablet) 20 mg PO DAILY [facility] Stop: 07/08/24 08:59 Last Admin: 07/16/23 08:20 Dose: 20 mg Darbepoetin Theodore (Darbepoetin Theodore In Polysorbat 40 Mcg/Ml Vial) 40 mcg IV-PUSHMo@1700 [facility]; Protocol Stop: 07/13/24 16:59 Last Admin: 07/14/23 18:07 Dose: Not Given Diclofenac Sodium (Diclofenac Sodium 1% Gel 100 Gm Tube) 4 gm TOPICAL QID [facility] Stop: 07/07/24 21:59 Last Admin: 07/16/23 08:20 Dose: 4 gm Docusate Sodium (Docusate 100 Mg Capsule) 100 mg PO BID PRN PRN Reason: Constipation Stop: 07/07/24 18:09 Last Admin: 07/15/23 05:20 Dose: 100 mg Docusate Sodium (Docusate Enema 283 Mg/5 Ml Enema) 283 mg RI DAILY PRN PRN Reason: Constipation Stop: 07/07/24 18:09 Heparin Sodium (Porcine) (Heparin 10,000 Unit/10 Ml Vial) 2,000 unit IV PRN PRN PRN Reason: Dialysis Stop: 07/10/24 15:40 Last Admin: 07/14/23 13:28 Dose: 2,000 unit Heparin Sodium (Porcine) (Heparin 10,000 Unit/10 Ml Vial) 1,000 unit IV PRN PRN PRN Reason: Dialysis Stop: 07/10/24 15:40 Last Admin: 07/11/23 16:30 Dose: 1,000 unit Sodium Chloride (0.9% Sodium Chloride 1,000 Ml) 1,000 mls @ 0 mls/hr MISCELLANE.Q0M PRN PRN Reason: Dialysis Stop: 07/08/24 09:04 Last Infusion: 07/16/23 13:41 Dose: Infused Insulin Aspart (Insulin Aspart 300 Units/3 Ml Insuln.Pen) 0 units SUBCUT TID.[facility]; Protocol Stop: 07/07/24 21:59 Last Admin: 07/16/23 12:13 Dose: 3 units Ipratropium [place] (Ipratropium [place] 0.5 Mg/2.5 Ml Vial.Neb) 0.5 mg INHALATION QID.RESP YESSENIA Stop: 07/08/24 07:59 Last Admin: 07/16/23 10:07 Dose: 0.5 mg Lactulose (Lactulose 20 Gm/30 Ml Udc) 30 gm PO DAILY PRN PRN Reason: Constipation Stop: 07/07/24 18:09 Lidocaine (Lidocaine 4% Adh..Patch) 1 patch TOPICAL BID YESSENIA Stop: 07/07/24 20:59 Last Admin: 07/16/23 08:20 Dose: 1 patch Lubiprostone (Lubiprostone 8 Mcg Capsule) 8 mcg PO BID YESSENIA Stop: 07/07/24 20:59 Last Admin: 07/16/23 08:20 Dose: 8 mcg Metoprolol Tartrate (Metoprolol Tartrate 12.5 Mg Tablet) 12.5 mg PO DAILY YESSENIA Stop: 07/08/24 08:59 Last Admin: 07/16/23 08:20 Dose: 12.5 mg Mexiletine HCl (Mexiletine 200 Mg Capsule) 200 mg PO Q8HR YESSENIA Stop: 07/07/24 21:59 Last Admin: 07/16/23 05:33 Dose: 200 mg Midodrine (Midodrine 5 Mg Tablet) 5 mg PO TID.7A.12P.5P YESSENIA Stop: 07/08/24 06:59 Last Admin: 07/16/23 12:10 Dose: 5 mg Midodrine (Midodrine 5 Mg Tablet) 5 mg PO MoWeFr PRN PRN Reason: Hypotension, sbp <90 Stop: 07/08/24 14:20 Multivitamins (Multivitamin 1 Tab Tablet) 1 tab PO DAILY YESSENIA Stop: 07/08/24 08:59 Last Admin: 07/16/23 08:20 Dose: 1 tab Nystatin (Nystatin 100,000 Unit/Gram Powder 15 Gm Bottle) 1 applic TOPICAL BID YESSENIA Stop: 07/10/24 12:44 Last Admin: 07/16/23 08:20 Dose: 1 applic Oxycodone/Acetaminophen (Oxycodone/Acetaminophen 5-325 Mg Tablet) 1 tab PO [id number] PRN Reason: pain Last Admin: 07/16/23 05:34 Dose: 1 tab Polyethylene Glycol (Polyethylene Glycol 3350 17 Gm Powd.Pack) 17 gm PO BID YESSENIA Stop: 07/07/24 20:59 Last Admin: 07/16/23 08:19 Dose: Not Given Pramipexole Dihydrochloride (Pramipexole 0.5 Mg Tablet) 0.5 mg PO HS YESSENIA Stop: 07/07/24 21:59 Last Admin: 07/15/23 22:21 Dose: 0.5 mg Pregabalin (Pregabalin 50 Mg Capsule) 50 mg PO BID YESSENIA Stop: 01/04/24 20:59 Last Admin: 07/16/23 08:20 Dose: 50 mg Sennosides (Sennosides 8.6 Mg Tablet) 2 tab PO DAILY@12 PRN PRN Reason: If no BM in 2 days Stop: 07/08/24 11:59 Last Admin: 07/15/23 05:20 Dose: 2 tab Sodium Chloride (Sodium Chloride 0.9 % 10 Ml Syringe) 0 ml IV-PUSH PRN PRN PRN Reason: Flush Stop: 07/07/24 18:09 Sodium Chloride (Sodium Chloride 0.9 % 10 Ml Syringe) 0 ml IV-PUSH PRN PRN PRN Reason: Flush Stop: 07/08/24 09:04 Last Admin: 07/16/23 13:38 Dose: 10 ml Vitamin D (Cholecalciferol 25 Mcg (1,000 Units) Tablet) 25 mcg PO DAILY YESSENIA Stop: 07/08/24 08:59 Last Admin: 07/16/23 08:20 Dose: 25 mcg Allergies lisinopril Allergy (Unknown, Verified 06/30/23 12:32) Cough gabapentin Allergy (Verified 06/30/23 12:32) Swelling of Lip/Tongue/Throat Results - Nephrology Labs 07/15/23 05:14 07/15/23 05:14 Radiology Impressions Impressions - last 24 hours: Any impression(s) listed above is documentation that was entered by the reading physician into a diagnostic report(s) for Cinthya Wilson. I have reviewed the report(s) and am incorporating any findings in the treatment plan of this patient where applicable. 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 She currently goes to the [facility] dialysis unit on MWF schedule. (2) Odontoid fracture: Assessment/Problem Details: Patient presents after a fall and was found to have odontoid fracture. She underwent the surgery on 07/04/2023. (3) Type 2 diabetes mellitus with diabetic chronic kidney disease: Assessment/Problem Details: She has insulin-dependent type 2 diabetes mellitus. (4) Secondary hyperparathyroidism: Assessment/Problem Details: She has secondary hyperparathyroidism due to the ESRD and hyperphosphatemia. She currently takes calcium acetate at home. 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 She takes midodrine for intradialytic hypotension. Plan * Hemodialysis today for 210 minutes, 2K bath. Blood flow rate 350, dialysate flow rate 500. Ultrafiltration 2.5 L .Continue midodrine 5 mg as needed for systolic blood pressure below 90s. * Patient gets hemodialysis with no heparin since she just had surgery on 07/03,. Noted a drop in hemoglobin to 9.0 g deciliter in July 13. Repeated lab next day revealed stable hemoglobin 9.2 g deciliter. * She has adequate iron stores. Will continue Aranesp 40 mcg q. Friday * Continue home dose of the calcium acetate. * Monitor CBC and renal panel before dialysis on MWF schedule. Documented By: Geronimo Graham MD 07/16/231412 Signed By: <Electronically signed by Geronimo Graham MD> 07/16/23 141 [facility] Work Phone: 1(225) 684-176106-04-2024 Progress note Author Quintin Johnson [facility] July 15, 2023 12:43pm Note Date/Time July 15, 2023 11:23 am [facility] [address] [place] [address] Physiatry(Rehab) Progress Note Signed Patient: Cinthya Wilson MR#: [id number] : 1945 Acct:[id number] Age/Sex: 78 / F Adm Date: 4 Loc: Room: [address] [place] [address] Type: ADM IN Attending Dr: Quintin Johnson MD Copies to: ~ <Kalli Hanson DO, RES - Last Filed: 07/15/23 11:23> Date of Service: 07/15/2023 Subjective <Kalli Hanson DO, RES - Last Filed: 07/15/23 11:23> Subjective Narrative: Ms. Wilson is a 78 year old female with multiple comorbidities including type IIDM, ESRD on hemodialysis Friday/Friday?Friday, COPD, CHF who presents to acute inpatient rehabilitation unit with functional impairments in the setting of C2 and L1 fractures s/p C1?C3 fixation. Patient reports sustaining a fall after her walker wheel got stuck in a sidewalkcrevice. She fell backwards again the back of her head. No loss of consciousness. She was able to get herself up. Patient did not seek medical care right away and continued to go about her daily activities for several more days. She started developing upper and lower extremity weakness as well as blurry vision and a headache, which prompted her to seek care. Upon ER evaluation she was found to have an odontoid fracture. Neurosurgery was consulted and recommended an operative intervention. Patient received cardiology clearance prior to procedure due to extensive cardiac history. ICD interrogation demonstrated no significant abnormalities. Nephrology was also consulted for dialysis management. On 07/05/2023 Dr. Weiss performed posterior cervical fusion with C1, C2, C3 fixation without major complications. Patient is to wear c-collar postoperatively. She was evaluated by PT/OT and recommended acute rehab for strengthening. INTERVAL HISTORY: She reports not seeing evenly out of her left eye. Neurology was consulted overthe weekend, head CT is nonacute. Workup pending for myasthenia gravis. She states she is feeling better than yesterday. Is working with therapy. Vitals are stable. Pain is reasonably controlled. She was able to ambulate 280 feet today. Review of Systems <Kalli Hanson DO, RES - Last Filed: 07/15/23 11:23> Review of Systems All other systems reviewed & are negative unless noted below or in HPI Exam <Kalli Hanson DO, RES - Last Filed: 07/15/23 11:23> Physical Exam Vital Signs: Temp Pulse Resp BP Pulse Ox O2 Del Method O2 Flow Rate 98.5 F 66 18 118/55 L 98 Nasal Cannula 2 07/15/23 05:00 07/15/23 10:48 07/15/23 10:48 07/15/23 05:00 07/15/23 05:00 07/15/23 08:00 07/15/23 08:00 Narrative: CONSTITUTIONAL: No apparent distress. Alert, oriented. HEAD: Normocephalic, atraumatic. Wearing a cervical collar. EYES: Sclera clear. Conjunctiva normal. ENT: External nose normal. No rhinorrhea. NECK: Wearing a cervical collar. LUNGS: No distress. Lungs clear bilaterally. Symmetric chest rise. No wheezes, rales or rhonchi. CARDIOVASCULAR: Regular rate and rhythm. No murmurs, rubs or gallops. MSK: No midline or paraspinal tenderness. SKIN: Intact. No rash. No trauma. NEUROLOGIC: Cranial nerves grossly intact. No focal neurologic signs. PSYCHIATRIC: Normal affect. Objective <Kalli Hanson DO, RES - Last Filed: 07/15/23 11:23> Labs 07/15/23 05:14 07/15/23 05:14 Labs: Laboratory Results - last 24 hr 07/14/23 07/14/23 07/14/23 11:49 18:16 19:01 Corrected WBC Uncorrected WBC Count RBC Hgb Hct MCV MCH MCHC RDW Plt Count MPV Neut % (Auto) Lymph % (Auto) [place] % (Auto) Eos % (Auto) Baso % (Auto) Nucleat RBC Rel Count Neut # (Auto) Lymph # (Auto) [place] # (Auto) Eos # (Auto) Baso # (Auto) PHA Creatinine Clear Sodium Potassium Chloride Carbon Dioxide Anion Gap BUN Creatinine Est GFR (CKD-EPI) Glucose POC Glucose 292 125 POC Glucose Comment Glu2: cleaned meter Calcium Urine Color Yellow Urine Appearance Turbid A Urine pH 6.5 Ur Specific [place] 1.013 Urine Protein 300 H Urine Glucose (UA) Normal Urine Ketones Trace H Urine Occult Blood 3+ H Urine Nitrite Negative Urine Bilirubin Negative Urine Urobilinogen Normal Ur Leukocyte Esterase 4+ H Urine RBC 5-9 H Urine WBC Innumerable H Ur Squamous Epith Cells 10-19 H Urine Bacteria None seen Other Casts None seen Urine Yeast None seen 07/14/23 07/15/23 07/15/23 20:22 05:14 06:34 Corrected WBC 7.9 Uncorrected WBC Count 7.9 RBC 3.17 L Hgb 9.2 L Hct 28.8 L MCV 90.9 MCH 29.0 MCHC 31.9 L RDW 17.3 H Plt Count 237 MPV 8.5 Neut % (Auto) 70.4 Lymph % (Auto) 12.5 [place] % (Auto) 15.2 Eos % (Auto) 1.3 Baso % (Auto) 0.6 Nucleat RBC Rel Count 0.0 Neut # (Auto) 5.5 Lymph # (Auto) 1.0 [place] # (Auto) 1.2 H Eos # (Auto) 0.1 Baso # (Auto) 0.0 PHA Creatinine Clear 14.49 Sodium 134 L Potassium 4.8 Chloride 95 L Carbon Dioxide 28.7 Anion Gap 15.1 H BUN 30 H Creatinine 3.12 H D Est GFR (CKD-EPI) 14.905 Glucose 155 H POC Glucose 228 138 POC Glucose Comment Calcium 9.2 Urine Color Urine Appearance Urine pH Ur Specific [place] Urine Protein Urine Glucose (UA) Urine Ketones Urine Occult Blood Urine Nitrite Urine Bilirubin Urine Urobilinogen Ur Leukocyte Esterase Urine RBC Urine WBC Ur Squamous Epith Cells Urine Bacteria Other Casts Urine Yeast Medications and Allergies Allergies and Active Meds: Allergies lisinopril Allergy (Unknown, Verified 06/30/23 12:32) Cough gabapentin Allergy (Verified 06/30/23 12:32) Swelling of Lip/Tongue/Throat Active Medications Generic Name Dose Route Start Last Admin Trade Name Freq PRN Reason Stop Dose Admin Acetaminophen 500 mg 07/08/23 18:10 07/10/23 13:01 Acetaminophen 500 Mg Tablet PO 07/07/24 18:09 500 mg Q4H PRN Administration Pain Al Hydrox/Mg Hydrox/Simethicone 30 ml 07/08/23 18:10 07/13/23 22:44 Mag Hydrox/Al Hydrox/Simeth 30 Ml Udc PO 07/07/24 18:09 30 ml Q4H PRN Administration Indigestion Albuterol 0.63 mg 07/08/23 19:03 07/13/23 22:40 Albuterol Neb 2.5 Mg/3 Ml Vial.Neb INHALATION 07/07/24 19:02 0.63 mg QID PRN Administration Shortness Of Breath Aspirin 81 mg 07/09/23 09:00 07/15/23 08:43 Aspirin 81 Mg Tablet. PO 07/08/24 08:59 81 mg DAILY YESSENIA Administration Atorvastatin Calcium 40 mg 07/08/23 21:00 07/14/23 20:23 Atorvastatin 40 Mg Tablet PO 07/07/24 20:59 40 mg QPM YESSENIA Administration Bisacodyl 10 mg 07/08/23 18:10 Bisacodyl 10 Mg Supp.Rect RI 07/07/24 18:09 DAILY PRN Constipation Budesonide/Formoterol Fumarate 2 puff 07/08/23 21:00 07/15/23 05:50 Budesonide/Formoterol 80-4.5 Mcg 60 Puff/6.9 Gm Hfa.Aer.Ad INHALATION 07/07/24 20:59 2 puff BID YESSENIA Administration Buspirone HCl 10 mg 07/08/23 21:00 07/15/23 08:44 Buspirone 10 Mg Tablet PO 07/07/24 20:59 10 mg BID YESSENIA Administration Calcium Acetate 667 mg 07/09/23 08:00 07/15/23 08:43 Calcium Acetate 667 Mg Capsule PO 07/08/24 07:59 667 mg TID.WITH.MEALS YESSENIA Administration Citalopram Hydrobromide 20 mg 07/09/23 09:00 07/15/23 08:44 Citalopram 20 Mg Tablet PO 07/08/24 08:59 20 mg DAILY [facility] Administration Darbepoetin Theodore 40 mcg 07/14/23 17:00 07/14/23 18:07 Darbepoetin Theodore In Polysorbat 40 Mcg/Ml Vial IV-PUSH 07/13/24 16:59 Not Given Mo@1700 [facility] Protocol Diclofenac Sodium 4 gm 07/08/23 22:00 07/15/23 08:44 Diclofenac Sodium 1% Gel 100 Gm Tube TOPICAL 07/07/24 21:59 4 gm QID YESSENIA Administration Docusate Sodium 100 mg 07/08/23 18:10 07/15/23 05:20 Docusate 100 Mg Capsule PO 07/07/24 18:09 100 mg BID PRN Administration Constipation Docusate Sodium 283 mg 07/08/23 18:10 Docusate Enema 283 Mg/5 Ml Enema RI 07/07/24 18:09 DAILY PRN Constipation Heparin Sodium (Porcine) 2,000 unit 07/11/23 15:41 07/14/23 13:28 Heparin 10,000 Unit/10 Ml Vial IV 07/10/24 15:40 2,000 unit PRN PRN Administration Dialysis Heparin Sodium (Porcine) 1,000 unit 07/11/23 15:41 07/11/23 16:30 Heparin 10,000 Unit/10 Ml Vial IV 07/10/24 15:40 1,000 unit PRN PRN Administration Dialysis Sodium Chloride 1,000 mls @ 0 mls/hr 07/09/23 09:05 07/14/23 13:29 0.9% Sodium Chloride 1,000 Ml MISCELLANE 07/08/24 09:04 Infused .Q0M PRN Infusion Dialysis As Directed Insulin Aspart 0 units 07/08/23 22:00 07/15/23 08:44 Insulin Aspart 300 Units/3 Ml Insuln.Pen SUBCUT 07/07/24 21:59 Not Given TID.WM.HS YESSENIA Protocol Ipratropium [place] 0.5 mg 07/09/23 08:00 07/15/23 10:43 Ipratropium [place] 0.5 Mg/2.5 Ml Vial.Neb INHALATION 07/08/24 07:59 0.5 mg QID.RESP YESSENIA Administration Lactulose 30 gm 07/08/23 18:10 Lactulose 20 Gm/30 Ml Udc PO 07/07/24 18:09 DAILY PRN Constipation Lidocaine 1 patch 07/08/23 21:00 07/15/23 08:44 Lidocaine 4% Adh..Patch TOPICAL 07/07/24 20:59 1 patch BID YESSENIA Administration Lubiprostone 8 mcg 07/08/23 21:00 07/15/23 08:43 Lubiprostone 8 Mcg Capsule PO 07/07/24 20:59 8 mcg BID YESSENIA Administration Metoprolol Tartrate 12.5 mg 07/09/23 09:00 07/15/23 08:43 Metoprolol Tartrate 12.5 Mg Tablet PO 07/08/24 08:59 12.5 mg DAILY YESSENIA Administration Mexiletine HCl 200 mg 07/08/23 22:00 07/15/23 05:20 Mexiletine 200 Mg Capsule PO 07/07/24 21:59 200 mg Q8HR YESSENIA Administration Midodrine 5 mg 07/09/23 07:00 07/15/23 05:20 Midodrine 5 Mg Tablet PO 07/08/24 06:59 5 mg TID.7A.12P.5P YESSENIA Administration Midodrine 5 mg 07/09/23 14:21 Midodrine 5 Mg Tablet PO 07/08/24 14:20 MoWeFr PRN Hypotension, sbp <90 Multivitamins 1 tab 07/09/23 09:00 07/15/23 08:43 Multivitamin 1 Tab Tablet PO 07/08/24 08:59 1 tab DAILY YESSENIA Administration Nystatin 1 applic 07/11/23 12:45 07/15/23 08:45 Nystatin 100,000 Unit/Gram Powder 15 Gm Bottle TOPICAL 07/10/24 12:44 1 applic BID YESSENIA Administration Oxycodone/Acetaminophen 1 tab 07/08/23 18:09 07/14/23 09:27 Oxycodone/Acetaminophen 5-325 Mg Tablet PO 1 tab Q6HR PRN Administration pain Polyethylene Glycol 17 gm 07/08/23 21:00 07/15/23 08:43 Polyethylene Glycol 3350 17 Gm Powd.Pack PO 07/07/24 20:59 17 gm BID YESSENIA Administration Pramipexole Dihydrochloride 0.5 mg 07/08/23 22:00 07/14/23 20:23 Pramipexole 0.5 Mg Tablet PO 07/07/24 21:59 0.5 mg HS YESSENIA Administration Pregabalin 50 mg 07/08/23 21:00 07/15/23 08:43 Pregabalin 50 Mg Capsule PO 01/04/24 20:59 50 mg BID YESSENIA Administration Sennosides 2 tab 07/09/23 12:00 07/15/23 05:20 Sennosides 8.6 Mg Tablet PO 07/08/24 11:59 2 tab DAILY@12 PRN Administration If no BM in 2 days Sodium Chloride 0 ml 07/08/23 18:10 Sodium Chloride 0.9 % 10 Ml Syringe IV-PUSH 07/07/24 18:09 PRN PRN Flush Sodium Chloride 0 ml 07/09/23 09:05 07/14/23 13:28 Sodium Chloride 0.9 % 10 Ml Syringe IV-PUSH 07/08/24 09:04 10 ml PRN PRN Administration Flush Vitamin D 25 mcg 07/09/23 09:00 07/15/23 08:44 Cholecalciferol 25 Mcg (1,000 Units) Tablet PO 07/08/24 08:59 25 mcg DAILY YESSENIA Administration Assessment/Plan <Kalli Hanson DO, RES - Last Filed: 07/15/23 11:23> Assessment/Plan (1) Odontoid fracture with type II morphology: (2) Chronic hypotension: (3) Cardiomyopathy: (4) COPD (chronic obstructive pulmonary disease): (5) ESRD (end stage renal disease): (6) Odontoid fracture: Qualifiers: Encounter type: subsequent encounter Fracture healing: with delayed healing Fracture type: closed Qualified Code(s): S12.100G - Unspecified displaced fracture of second cervical vertebra, subsequent encounter for fracture with delayed healing (7) Type 2 diabetes mellitus with diabetic chronic kidney disease: (8) Diplopia: Plan Plan Patient is a 78-year-old female with complex past medical history including CAD,DM, ESRD on dialysis who presents to acute inpatient rehabilitation unit with multifactorial functional impairments in the setting of C2 fracture s/p surgicalrepair. * Repeat CBC today shows hemoglobin 9.2. * Appreciate Neurology consultation regarding vision changes. CT head is nonacute. Workup ongoing for myasthenia gravis. * Otherwise improving with therapy, ambulatory 280'. * Pain controlled, moving bowel/bladder. Patient education Pressure ulcer prophylaxis; encourage mobilization, frequent postural changes, pressure-relief techniques DVT prophylaxis Encourage deep breathing exercise incentive spirometry. Monitor bladder. Toileting schedule. Continue current bladder management, with scans as needed and CIC if needed. Start bowel care program every day to obtain continence, prevent ileus. Maintain fall precautions Gait and balance retraining Functional training and self-care and home management, including activities of daily living and instrumental activities of daily living Provision of the necessary gait aids and functional adaptive equipment to enhance the patient's a functional orthodoxy Ensure adequate nutrition and hydration Sleep she has Pain: Continue current regimen Discharge planning: Hopefully home with family in 10 days <Quintin Johnson MD - Last Filed: 07/15/23 12:43> Assessment/Plan (1) Odontoid fracture with type II morphology: (2) Chronic hypotension: (3) Cardiomyopathy: (4) COPD (chronic obstructive pulmonary disease): (5) ESRD (end stage renal disease): (6) Odontoid fracture: (7) Type 2 diabetes mellitus with diabetic chronic kidney disease: (8) Diplopia: Plan Plan Patient is a 78-year-old female with complex past medical history including CAD,DM, ESRD on dialysis who presents to acute inpatient rehabilitation unit with multifactorial functional impairments in the setting of C2 fracture s/p surgicalrepair. * Repeat CBC today shows hemoglobin 9.2. * Appreciate Neurology consultation regarding vision changes. CT head is nonacute. Workup ongoing for myasthenia gravis. * Otherwise improving with therapy, ambulatory 280'. * Pain controlled, moving bowel/bladder. Patient education Pressure ulcer prophylaxis; encourage mobilization, frequent postural changes, pressure-relief techniques DVT prophylaxis Encourage deep breathing exercise incentive spirometry. Monitor bladder. Toileting schedule. Continue current bladder management, with scans as needed and CIC if needed. Start bowel care program every day to obtain continence, prevent ileus. Maintain fall precautions Gait and balance retraining Functional training and self-care and home management, including activities of daily living and instrumental activities of daily living Provision of the necessary gait aids and functional adaptive equipment to enhance the patient's a functional orthodoxy Ensure adequate nutrition and hydration Sleep she has Pain: Continue current regimen Discharge planning: Hopefully home with family in 10 days Patient was personally seen by me on the day of encounter, reviewed the history and performed chow elements of exam and formulated the plan of care and confirmedthe resident physician note, as above Patient was personally seen by me, Dr. Johnson, on the day of encounter, reviewed the history and the relevant portions of the chart, including current orders, allied health and sustainability consultant notes, labs/imaging and performed chow elements of exam and I formulated the plan of care and facilitated the medical decision making. I completed a substantive portion of this encounter, the medical decision makingportion of this note in its entirety, including Allied health note review, nursing note review, sustainability consultant note review, discussion with nursing and case management, and more than 50% of my time was spent on counseling and coordination of care, time spent 25 minutes Discussed at team meeting. Plan is for discharge next week. Daughter will attend family instruction session this weekend, she works during the week 5 AM to 2 PM. If patient unable to return home, agreeable to correction placement in [place]. Documented By: Quintin Johnson MD 07/15/23 1115 Signed By: <Electronically signed by Quintin Johnson MD> 07/15/23 1243 <Electronically signed by DO OMAR Hanson> 07/15/23 1123 [facility] Work Phone: 1(934) 876-597506-03-2024 Progress note Author Nataliya Herzog [facility] July 14, 2023 5:06pm Note Date/Time July 14, 2023 5:06p m [facility] [address] [place] [address] Hospitalist Progress Note Signed Patient: Cinthya Wilson MR#: [id number] : 1945 Acct:[id number] Age/Sex: 78 / F Adm Date: 4 Loc: Room: [address] [place] [address] Type: ADM IN Attending Dr: Quintin Johnson MD Copies to: ~ Date of Service: 07/14/2023 Subjective Subjective Narrative: Patient seen and examined during dialysis. She is smiling. Still endorsing visual disturbance with mild blurring, levels of vision unequal (gives example of words at diferent heights in her visual rajput). Did strike posterior skull with her fall. With exam checking EOMs triggered some dizziness briefly with movement to the left. Does indicate she wears glasses but lost them in the parking lot with her fall. Aware we are pending CT head. Only on ASA chronically no other anticoag or antiplatelet Exam Physical Exam Vital Signs: Temp Pulse Resp BP Pulse Ox O2 Del Method O2 Flow Rate 97.5 F L 62 16 106/57 L 100 Nasal Cannula 1 07/14/23 13:10 07/14/23 15:00 07/14/23 13:10 07/14/23 15:00 07/14/23 13:10 07/14/23 13:10 07/14/23 13:10 Narrative: CONST- alert, in bed during dialysis, c-collar on, smiling and interactive CARD- RRR no abnormal heart tones PULM- dimin without wheeze or rhonchi, chronic O2 2LNC ABD- S/NT, NABS, round EXTREM- no edema BLE, calves nontender SKIN- surgical site not seen- current dialysis and c-collar in place Objective Lab Results 07/14/23 04:45 07/14/23 04:45 Meds Allergies and Active Meds Allergies lisinopril Allergy (Unknown, Verified 06/30/23 12:32) Cough gabapentin Allergy (Verified 06/30/23 12:32) Swelling of Lip/Tongue/Throat Active Meds: Active Medications Generic Name Dose Route Start Last Admin Trade Name Freq PRN Reason Stop Dose Admin Acetaminophen 500 mg 07/08/23 18:10 07/10/23 13:01 Acetaminophen 500 Mg Tablet PO 07/07/24 18:09 500 mg Q4H PRN Administration Pain Al Hydrox/Mg Hydrox/Simethicone 30 ml 07/08/23 18:10 07/13/23 22:44 Mag Hydrox/Al Hydrox/Simeth 30 Ml Udc PO 07/07/24 18:09 30 ml Q4H PRN Administration Indigestion Albuterol 0.63 mg 07/08/23 19:03 07/13/23 22:40 Albuterol Neb 2.5 Mg/3 Ml Vial.Neb INHALATION 07/07/24 19:02 0.63 mg QID PRN Administration Shortness Of Breath Aspirin 81 mg 07/09/23 09:00 07/14/23 08:56 Aspirin 81 Mg Tablet.Dr PO 07/08/24 08:59 81 mg DAILY YESSENIA Administration Atorvastatin Calcium 40 mg 07/08/23 21:00 07/13/23 20:23 Atorvastatin 40 Mg Tablet PO 07/07/24 20:59 40 mg QPM YESSENIA Administration Bisacodyl 10 mg 07/08/23 18:10 Bisacodyl 10 Mg Supp.Rect RI 07/07/24 18:09 DAILY PRN Constipation Budesonide/Formoterol Fumarate 2 puff 07/08/23 21:00 07/14/23 05:51 Budesonide/Formoterol 80-4.5 Mcg 60 Puff/6.9 Gm Hfa.Aer.Ad INHALATION 07/07/24 20:59 2 puff BID YESSENIA Administration Buspirone HCl 10 mg 07/08/23 21:00 07/14/23 08:57 Buspirone 10 Mg Tablet PO 07/07/24 20:59 10 mg BID YESSENIA Administration Calcium Acetate 667 mg 07/09/23 08:00 07/14/23 12:15 Calcium Acetate 667 Mg Capsule PO 07/08/24 07:59 667 mg TID.WITH.MEALS YESSENIA Administration Citalopram Hydrobromide 20 mg 07/09/23 09:00 07/14/23 08:56 Citalopram 20 Mg Tablet PO 07/08/24 08:59 20 mg DAILY YESSENIA Administration Darbepoetin Theodore 40 mcg 07/14/23 17:00 Darbepoetin Theodore In Polysorbat 40 Mcg/Ml Vial IV-PUSH 07/13/24 16:59 Mo@[facility]00 [facility] Protocol Diclofenac Sodium 4 gm 07/08/23 22:00 07/14/23 08:57 Diclofenac Sodium 1% Gel 100 Gm Tube TOPICAL 07/07/24 21:59 4 gm QID YESSENIA Administration Docusate Sodium 100 mg 07/08/23 18:10 Docusate 100 Mg Capsule PO 07/07/24 18:09 BID PRN Constipation Docusate Sodium 283 mg 07/08/23 18:10 Docusate Enema 283 Mg/5 Ml Enema RI 07/07/24 18:09 DAILY PRN Constipation Heparin Sodium (Porcine) 2,000 unit 07/11/23 15:41 07/14/23 13:28 Heparin 10,000 Unit/10 Ml Vial IV 07/10/24 15:40 2,000 unit PRN PRN Administration Dialysis Heparin Sodium (Porcine) 1,000 unit 07/11/23 15:41 07/11/23 16:30 Heparin 10,000 Unit/10 Ml Vial IV 07/10/24 15:40 1,000 unit PRN PRN Administration Dialysis Sodium Chloride 1,000 mls @ 0 mls/hr 07/09/23 09:05 07/14/23 13:29 0.9% Sodium Chloride 1,000 Ml MISCELLANE 07/08/24 09:04 Infused .Q0M PRN Infusion Dialysis As Directed Insulin Aspart 0 units 07/08/23 22:00 07/14/23 12:15 Insulin Aspart 300 Units/3 Ml Insuln.Pen SUBCUT 07/07/24 21:59 7 units TID.WM.[facility] Administration Protocol Ipratropium [place] 0.5 mg 07/09/23 08:00 07/14/23 15:24 Ipratropium [place] 0.5 Mg/2.5 Ml Vial.Neb INHALATION 07/08/24 07:59 Not Given QID.RESP YESSENIA Lactulose 30 gm 07/08/23 18:10 Lactulose 20 Gm/30 Ml Udc PO 07/07/24 18:09 DAILY PRN Constipation Lidocaine 1 patch 07/08/23 21:00 07/14/23 08:57 Lidocaine 4% Adh..Patch TOPICAL 07/07/24 20:59 1 patch BID [facility] Administration Lubiprostone 8 mcg 07/08/23 21:00 07/14/23 08:56 Lubiprostone 8 Mcg Capsule PO 07/07/24 20:59 8 mcg BID YESSENIA Administration Metoprolol Tartrate 12.5 mg 07/09/23 09:00 07/14/23 08:56 Metoprolol Tartrate 12.5 Mg Tablet PO 07/08/24 08:59 12.5 mg DAILY YESSENIA Administration Mexiletine HCl 200 mg 07/08/23 22:00 07/14/23 05:40 Mexiletine 200 Mg Capsule PO 07/07/24 21:59 200 mg Q8HR YESSENIA Administration Midodrine 5 mg 07/09/23 07:00 07/14/23 12:15 Midodrine 5 Mg Tablet PO 07/08/24 06:59 5 mg TID.7A.12P.5P YESSENIA Administration Midodrine 5 mg 07/09/23 14:21 Midodrine 5 Mg Tablet PO 07/08/24 14:20 MoWeFr PRN Hypotension, sbp <90 Multivitamins 1 tab 07/09/23 09:00 07/14/23 08:56 Multivitamin 1 Tab Tablet PO 07/08/24 08:59 1 tab DAILY YESSENIA Administration Nystatin 1 applic 07/11/23 12:45 07/14/23 08:58 Nystatin 100,000 Unit/Gram Powder 15 Gm Bottle TOPICAL 07/10/24 12:44 1 applic BID YESSENIA Administration Oxycodone/Acetaminophen 1 tab 07/08/23 18:09 07/14/23 09:27 Oxycodone/Acetaminophen 5-325 Mg Tablet PO 1 tab Q6HR PRN Administration pain Polyethylene Glycol 17 gm 07/08/23 21:00 07/14/23 08:58 Polyethylene Glycol 3350 17 Gm Powd.Pack PO 07/07/24 20:59 17 gm BID YESSENIA Administration Pramipexole Dihydrochloride 0.5 mg 07/08/23 22:00 07/13/23 20:23 Pramipexole 0.5 Mg Tablet PO 07/07/24 21:59 0.5 mg HS YESSENIA Administration Pregabalin 50 mg 07/08/23 21:00 07/14/23 08:58 Pregabalin 50 Mg Capsule PO 01/04/24 20:59 50 mg BID YESSENIA Administration Sennosides 2 tab 07/09/23 12:00 Sennosides 8.6 Mg Tablet PO 07/08/24 11:59 DAILY@12 PRN If no BM in 2 days Sodium Chloride 0 ml 07/08/23 18:10 Sodium Chloride 0.9 % 10 Ml Syringe IV-PUSH 07/07/24 18:09 PRN PRN Flush Sodium Chloride 0 ml 07/09/23 09:05 07/14/23 13:28 Sodium Chloride 0.9 % 10 Ml Syringe IV-PUSH 07/08/24 09:04 10 ml PRN PRN Administration Flush Vitamin D 25 mcg 07/09/23 09:00 07/14/23 08:57 Cholecalciferol 25 Mcg (1,000 Units) Tablet PO 07/08/24 08:59 25 mcg DAILY YESSENIA Administration A&P - Hospitalist Assessment/Plan (1) Odontoid fracture with type II morphology: (2) Impaired mobility and activities of daily living: (3) Chronic hypotension: (4) Type 2 diabetes mellitus with diabetic chronic kidney disease: (5) Anemia of renal disease: (6) ESRD (end stage renal disease): Plan Close odontoid fracture secondary to mechanical fall S/p C2 fracture with C2-3/3-4 instability 07/04 S/p Posterior Cervical Decompression with C1-5 Fixation Impaired mobility and activities of daily living * Plan of care for rehabilitation, PT/OT, DVT prophylaxis, bowel regimen per PM&R team Left eye vision changes/blurry vision Fall did result in strike to posterior head -CT pending -neurology consult appreciated Chronic conditions: 1. Diastolic heart failure/hypotension? metoprolol, midodrine 2. Type 2 diabetes? SSI, 7.9 A1c - adequately controlled for age to avoid hypoglycemia contributing to falls with chronic debility 3. COPD, chronic respiratory failure? albuterol and budesonide/formoterol, homeoxygen of 2 L 4. ESRD/diabetic neuropathy/anemia of chronic disease?Nephrology following, adequate iron stores, erythropoietin 5. CAD s/p PCI, HLD, cardiac arrhythmias s/p AICD- ASA, atorvastatin, mexiletine 6. Anxiety- Buspirone, Citalopram Documented By: Nataliya Herzog APRN 05/03 1530 Signed By: <Electronically signed by NELI Herzog> 07/14/23 1705 [facility] Work Phone: [phone]) 137-685606-03-2024 Consult note Author Danny Mcclelland [facility] July 14, 2023 3:18pm Note Date/Time July 14, 2023 12:16 pm [facility] [address] [place], [place] [id number] Neurology Consult Note Signed Patient: Cinthya Wilson MR#: [id number] : 1945 Acct:[id number] Age/Sex: 78 / F Adm Date: 4 Loc: Room: [address] [place] [address] Type: ADM IN Attending Dr: Quintin Johnson MD Copies to: DO Lily Robin II, MD Joseph Riley, MD~ HPI Consult Date: 07/14/23 Airplane Pilot: Danny Mcclelland DO [facility] Medical History (Updated 07/14/23 @ 15:18 by Danny Mcclelland DO) Diplopia Secondary hyperparathyroidism Anemia of renal disease Type 2 diabetes mellitus with diabetic chronic kidney disease Diabetes mellitus with insulin therapy Chronic hypoxemic respiratory failure ESRD (end stage renal disease) CAD (coronary artery disease) COPD (chronic obstructive pulmonary disease) Fall Carotid stenosis, bilateral End-stage renal disease (ESRD) Heart failure Missed dialysis Chronic combined systolic and diastolic CHF (congestive heart failure) Hyponatremia Pneumonia Polymyalgia Skin cancer mohs procedure for removal Neuropathy right thigh and feet Sleep apnea Irregular heart rhythm prior to stent placement per pt report Neck pain with history of cervical spinal surgery Cataract had bilateral PHACO Chronic back pain Arthritis Cervical spinal stenosis Anxiety Hyperlipidemia HTN (hypertension) [...] Family History Father Heart disease Cancer Mother Diabetes Cancer Brother Cancer Legacy FamHx Relation: Brother(s); Legacy FamHx Problem: Diagnosed with Cancer Social History Smoking Status: Never smoker Substance Use Type: None Social History Comments: adult son Meds Medications and Allergies Allergies lisinopril Allergy (Unknown, Verified 06/30/23 12:32) Cough gabapentin Allergy (Verified 06/30/23 12:32) Swelling of Lip/Tongue/Throat Home Medications atorvastatin 40 mg tablet 40 mg PO QPM 11/19/16 [History Confirmed 07/08/23] multivitamin 1 tab PO DAILY 09/07/19 [History Confirmed 07/08/23] aspirin 81 mg tablet,delayed release 81 mg PO DAILY 11/25/19 [History Confirmed 07/08/23] cholecalciferol (vitamin D3) 25 mcg (1,000 unit) tablet (Vitamin D3) 25 mcg PO DAILY 11/25/19 [History Confirmed 07/08/23] albuterol sulfate 0.63 mg/3 mL solution for nebulization 0.63 mg inhalation QID PRN SOB 06/26/21 [History Confirmed 07/08/23] docusate sodium 100 mg capsule 100 mg PO BID #60 caps 11/20/21 [Rx Confirmed 07/08/23] pen needle, diabetic 32 gauge x 5/32 (BD Ultra-Fine Lexis Pen Needle) #100 ea 11/20/21 [Rx Confirmed 06/30/23] calcium acetate(phosphat bind) 667 mg capsule 667 mg PO TID.WITH.MEALS 60 days #240 caps 02/26/22 [Rx Confirmed 07/08/23] diclofenac sodium 1 % topical gel (Voltaren Arthritis Pain) 4 g topical QID #0 grams 10/31/22 [Rx Confirmed 07/08/23] furosemide 20 mg tablet 60 mg (3 x 20 mg) PO BID 30 days #180 tabs 10/31/22 [Rx Confirmed 07/08/23] fluticasone fur. 100 mcg-umeclid 62.5 mcg-vilant 25 mcg inhalat.powder (Trelegy Ellipta) 2 ea inhalation DAILY 12/06/22 [History Confirmed 07/08/23] pramipexole 0.5 mg tablet 0.5 mg PO HS 12/06/22 [History Confirmed 07/08/23] insulin lispro 100 unit/mL subcutaneous pen (Humalog KwikPen (U-100) Insulin) 1 sliding scale dose subcut ACHS 12/29/22 [History Confirmed 07/08/23] acetaminophen 650 mg tablet,extended release (Arthritis Pain Reliever) 650 mg POQ12H PRN pain 03/05/23 [History Confirmed 07/08/23] buspirone 10 mg tablet 10 mg PO BID 03/05/23 [History Confirmed 07/08/23] metoprolol tartrate 25 mg tablet 12.5 mg PO DAILY 03/05/23 [History Confirmed 07/08/23] mexiletine 200 mg capsule 200 mg PO Q8HR 30 days #90 caps 03/07/23 [Rx Confirmed 07/08/23] pregabalin 50 mg capsule (Lyrica) 50 mg PO BID 04/01/23 [History Confirmed 07/08/23] lidocaine 4 % topical patch (Lidocaine Pain Relief) 1 patch topical BID 06/30/23[History Confirmed 07/08/23] lubiprostone 8 mcg capsule (Amitiza) 8 mcg PO BID 06/30/23 [History Confirmed 07/08/23] midodrine 5 mg tablet 5 mg PO DAILY PRN low bp 06/30/23 [History Confirmed 07/08/23] polyethylene glycol 3350 17 gram/dose oral powder (ClearLax) 17 g PO BID 06/30/23 [History Confirmed 07/08/23] tizanidine 4 mg capsule (Zanaflex) 4 mg PO QHS 06/30/23 [History Confirmed 07/08/23] citalopram 20 mg tablet 20 mg PO DAILY #30 tabs 07/08/23 [Rx Confirmed 07/08/23] midodrine 5 mg tablet 5 mg PO TID.7A.12P.5P 30 days #90 tabs 07/08/23 [Rx Confirmed 07/08/23] oxycodone-acetaminophen 5 mg-325 mg tablet (Percocet) 1 tab PO Q6HR PRN pain 07/08/23 [History Confirmed 07/08/23] Exam Physical Exam Vital Signs: Temp Pulse Resp BP Pulse Ox O2 Del Method O2 Flow Rate 98.5 F 65 16 126/64 98 Nasal Cannula 2 07/14/23 05:00 07/14/23 10:42 07/14/23 10:42 07/14/23 05:00 07/14/23 05:00 07/14/23 08:00 07/14/23 08:00 Results - Neuro Laboratory Findings 07/14/23 04:45 07/14/23 04:45 Lab Results: Hemoglobin A1c 7.9 % (4.3-5.6) H 07/14/23 04:45 Therapy Recommendations Therapy Recommendations: PT Recommendations PT Recommended Discharge Home with Home Health,Home with Outpatient Location PT Recommended Services at Physical Therapy Discharge ST Recommendations Level of Supervision Independent Self Feeding Liquid Consistency Thin Liquids Recommendation Solid Consistency Regular Solids Recommendations Meat Consistency Whole Meats,Extra Bowl of Gravy Recommendations Medication Administration Whole Pills,Give Pills in Applesauce,Give Pills with Water Dysphagia Swallow Precautions/ Sitting Upright (90 deg),Small Bites/Sips,Pacing Strategies /Slow-Rate ST Recommended Services at Speech Therapy Discharge Assessment/Plan (1) Diplopia: Plan CONSULT REASON: Diplopia HPI: 78-year-old woman with history of diabetes, end-stage renal disease, coronary artery disease, COPD, sleep apnea, cervical spinal stenosis, CHF, anemia, among others. She had a fall and sustained an odontoid fracture. She had cervical stabilizing surgery with Dr. Weiss July 04. Still in a neck brace. She reportedhaving double vision. It seems like it is worst when she is looking at things closely. She says if she is looking down to read something she sees double. She feels like her left eye is being pulled laterally, based on her description. Her gaze outwardly appears conjugate. She thinks the double vision is worse with her glasses on. She does not have prisms. It does seem to fluctuate. I asked if she was noticing droopy eyelids and she does not think that she is having at least one of her eyelids get droopy. Home medications include atorvastatin 40 mg daily, aspirin 81 mg daily, pramipexole 0.5 mg at night, buspirone, pregabalin 50 mg twice daily, midodrine 5 mg 3 times daily, tizanidine nightly, citalopram, among others. EXAMINATION: In no distress. No deformities or trauma. Limbs seem well-perfused. No significant edema. Normal work of breathing. Visualized skin is generally intact and without lesions. Affect normal. Patient is alert and generally oriented. Attention normal. Speech is fluent and nondysarthric. Pupils are equal and reactive. Ocular motility is full. No nystagmus. Facial sensation is normal. Hearing is normal. Facial strength is normal. Tongue is midline. Muscle bulk, tone, and strength are normal. No tremors. Reflexes normal throughout. Light touch is normal. Vibratory sensation is normal. No limb dysmetria or ataxia. 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 ASSESSMENT: 78-year-old woman with history of a lower cervical fusion who had a fall and sustained an odontoid fracture and is status post C1-C3 hardware fixation on [address] Weiss. Now reporting binocular diplopia. Seems to be worst when looking down to read something. She thinks her glasses might make it worse. It also seems to fluctuate. On examination, I do not appreciate any disconjugate gaze. When I have her look at a point of light in all cardinal directions I cannot reproduce her diplopia. And I cannot elicit convergence insufficiency. My top considerations would be ocular myasthenia gravis (she does think she is having fluctuating eyelid ptosis) or a microvascular III/IV/ cranial nerve palsy. Fairly low suspicion for any acute cerebrovascular disease or other brainstem lesion but she does have plenty of risk factors for vascular disease, including diabetes, ESRD, CAD, sleep apnea. PLAN: I will check acetylcholine receptor antibodies and muscle specific kinase antibodies After seeing her, I do not think we can get her situated in such a way in the MRI machine right now. Will be an ongoing consideration. Continue the aspirin 81 mg daily Continue atorvastatin [address] is pending Documented By: Danny Mcclelland DO 07/14/23 0797 Signed By: <Electronically signed by Danny Mcclelland DO> 07/14/23 6935 [facility] Work Phone: [phone]) 351-759906-03-2024 Progress note Author Geronimo Graham [facility] July 14, 2023 3:04pm Note Date/Time July 14, 2023 3:00p m [facility] [address] [place] [address] Nephrology Progress Note Signed Patient: Cinthya Wilson MR#: [id number] : 1945 Acct:[id number] Age/Sex: 78 / F Adm Date: 4 Loc: Room: 9V3511-6 Type: ADM IN Attending Dr: Quintin Johnson MD Copies to: ~ Date of Service: 07/14/2023 Subjective Subjective Narrative: This is a 78-year-old female well-known to our service from dialysis unit who isbeing seen in the rehab for management of ESRD and dialysis. 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 Her other comorbidities are CAD s/p PCI, COPD, chronic hypoxic diastolic failure, cardiac arrhythmia s/p AICD and dyslipidemia. She was admitted to [facility] through ER after fall and she was found to have new fracture at the base of the odontoid. There is no intracranial bleeding. Patient underwent surgery on 07/04/2023 and subsequently was moved up to the rehab. Interval history Patient was seen and examined on hemodialysis. Patient is sleeping during my encounter. There has been no documented acute events .vital signs stable. Dialysis is running well Remains on nasal cannula 1 L/min. Oxygen saturation 100% Blood pressure is stable with midodrine. She has AV fistula with good thrill Exam Physical Exam Vital Signs: Temp Pulse Resp BP Pulse Ox O2 Del Method O2 Flow Rate 97.5 F L 65 16 117/66 100 Nasal Cannula 1 07/14/23 13:10 07/14/23 14:30 07/14/23 13:10 07/14/23 14:30 07/14/23 13:10 07/14/23 13:10 07/14/23 13:10 Narrative: General: No acute distress Head :atraumatic normocephalic Eyes: PERRLA. Neck: . There is color around the neck Heart: S1-S2. RRR Respiratory: Clear to auscultation. No wheezing. No crackles Abdomen: Soft, positive bowel sounds,no tenderness. Neurology: Patient sleeping. No focal deficits Extremity. No cyanosis. No edema Skin: No skin rash Objective Intake and Output I&O: Intake & Output 07/11/23 07/12/23 07/13/23 07/14/23 23:59 23:59 23:59 23:59 Intake Total 1350 / 1350 580 / 580 1240 / 1240 1240 / 1240 Output Total 2987 / 2987 0 / 0 Balance -1637 / -1637 580 / 580 1240 / 1240 1240 / 1240 Weight 142 lb 10.225 oz 139 lb 5.314 oz 138 lb 10.732 oz 150 lb 9.211 oz Meds and Allergies Meds: Active Medications Acetaminophen (Acetaminophen 500 Mg Tablet) 500 mg PO Q4H PRN PRN Reason: Pain Stop: 07/07/24 18:09 Last Admin: 07/10/23 13:01 Dose: 500 mg Al Hydrox/Mg Hydrox/Simethicone (Mag Hydrox/Al Hydrox/Simeth 30 Ml Udc) 30 ml PO Q4H PRN PRN Reason: Indigestion Stop: 07/07/24 18:09 Last Admin: 07/13/23 22:44 Dose: 30 ml Albuterol (Albuterol Neb 2.5 Mg/3 Ml Vial.Neb) 0.63 mg INHALATION QID PRN PRN Reason: Shortness Of Breath Stop: 07/07/24 19:02 Last Admin: 07/13/23 22:40 Dose: 0.63 mg Aspirin (Aspirin 81 Mg Tablet.) 81 mg PO DAILY [facility] Stop: 07/08/24 08:59 Last Admin: 07/14/23 08:56 Dose: 81 mg Atorvastatin Calcium (Atorvastatin 40 Mg Tablet) 40 mg PO QPM YESSENIA Stop: 07/07/24 20:59 Last Admin: 07/13/23 20:23 Dose: 40 mg Bisacodyl (Bisacodyl 10 Mg Supp.Rect) 10 mg RI DAILY PRN PRN Reason: Constipation Stop: 07/07/24 18:09 Budesonide/Formoterol Fumarate (Budesonide/Formoterol 80-4.5 Mcg 60 Puff/6.9 Gm Hfa.Aer.Ad) 2 puff INHALATION BID YESSENIA Stop: 07/07/24 20:59 Last Admin: 07/14/23 05:51 Dose: 2 puff Buspirone HCl (Buspirone 10 Mg Tablet) 10 mg PO BID [facility] Stop: 07/07/24 20:59 Last Admin: 07/14/23 08:57 Dose: 10 mg Calcium Acetate (Calcium Acetate 667 Mg Capsule) 667 mg PO TID.WITH.MEALS YESSENIA Stop: 07/08/24 07:59 Last Admin: 07/14/23 12:15 Dose: 667 mg Citalopram Hydrobromide (Citalopram 20 Mg Tablet) 20 mg PO DAILY [facility] Stop: 07/08/24 08:59 Last Admin: 07/14/23 08:56 Dose: 20 mg Diclofenac Sodium (Diclofenac Sodium 1% Gel 100 Gm Tube) 4 gm TOPICAL QID YESSENIA Stop: 07/07/24 21:59 Last Admin: 07/14/23 08:57 Dose: 4 gm Docusate Sodium (Docusate 100 Mg Capsule) 100 mg PO BID PRN PRN Reason: Constipation Stop: 07/07/24 18:09 Docusate Sodium (Docusate Enema 283 Mg/5 Ml Enema) 283 mg RI DAILY PRN PRN Reason: Constipation Stop: 07/07/24 18:09 Heparin Sodium (Porcine) (Heparin 10,000 Unit/10 Ml Vial) 2,000 unit IV PRN PRN PRN Reason: Dialysis Stop: 07/10/24 15:40 Last Admin: 07/14/23 13:28 Dose: 2,000 unit Heparin Sodium (Porcine) (Heparin 10,000 Unit/10 Ml Vial) 1,000 unit IV PRN PRN PRN Reason: Dialysis Stop: 07/10/24 15:40 Last Admin: 07/14/23 13:28 Dose: 1,000 unit Sodium Chloride (0.9% Sodium Chloride 1,000 Ml) 1,000 mls @ 0 mls/hr MISCELLANE.Q0M PRN PRN Reason: Dialysis Stop: 07/08/24 09:04 Last Infusion: 07/14/23 13:29 Dose: Infused Insulin Aspart (Insulin Aspart 300 Units/3 Ml Insuln.Pen) 0 units SUBCUT TID.[facility]; Protocol Stop: 07/07/24 21:59 Last Admin: 07/14/23 12:15 Dose: 7 units Ipratropium [place] (Ipratropium [place] 0.5 Mg/2.5 Ml Vial.Neb) 0.5 mg INHALATION QID.RESP [facility] Stop: 07/08/24 07:59 Last Admin: 07/14/23 10:42 Dose: 0.5 mg Lactulose (Lactulose 20 Gm/30 Ml Udc) 30 gm PO DAILY PRN PRN Reason: Constipation Stop: 07/07/24 18:09 Lidocaine (Lidocaine 4% Adh..Patch) 1 patch TOPICAL BID [facility] Stop: 07/07/24 20:59 Last Admin: 07/14/23 08:57 Dose: 1 patch Lubiprostone (Lubiprostone 8 Mcg Capsule) 8 mcg PO BID YESSENIA Stop: 07/07/24 20:59 Last Admin: 07/14/23 08:56 Dose: 8 mcg Metoprolol Tartrate (Metoprolol Tartrate 12.5 Mg Tablet) 12.5 mg PO DAILY YESSENIA Stop: 07/08/24 08:59 Last Admin: 07/14/23 08:56 Dose: 12.5 mg Mexiletine HCl (Mexiletine 200 Mg Capsule) 200 mg PO Q8HR YESSENIA Stop: 07/07/24 21:59 Last Admin: 07/14/23 05:40 Dose: 200 mg Midodrine (Midodrine 5 Mg Tablet) 5 mg PO TID.7A.12P.5P YESSENIA Stop: 07/08/24 06:59 Last Admin: 07/14/23 12:15 Dose: 5 mg Midodrine (Midodrine 5 Mg Tablet) 5 mg PO MoWeFr PRN PRN Reason: Hypotension, sbp <90 Stop: 07/08/24 14:20 Multivitamins (Multivitamin 1 Tab Tablet) 1 tab PO DAILY YESSENIA Stop: 07/08/24 08:59 Last Admin: 07/14/23 08:56 Dose: 1 tab Nystatin (Nystatin 100,000 Unit/Gram Powder 15 Gm Bottle) 1 applic TOPICAL BID YESSENIA Stop: 07/10/24 12:44 Last Admin: 07/14/23 08:58 Dose: 1 applic Oxycodone/Acetaminophen (Oxycodone/Acetaminophen 5-325 Mg Tablet) 1 tab PO [id number] PRN Reason: pain Last Admin: 07/14/23 09:27 Dose: 1 tab Polyethylene Glycol (Polyethylene Glycol 3350 17 Gm Powd.Pack) 17 gm PO BID YESSENIA Stop: 07/07/24 20:59 Last Admin: 07/14/23 08:58 Dose: 17 gm Pramipexole Dihydrochloride (Pramipexole 0.5 Mg Tablet) 0.5 mg PO HS YESSENIA Stop: 07/07/24 21:59 Last Admin: 07/13/23 20:23 Dose: 0.5 mg Pregabalin (Pregabalin 50 Mg Capsule) 50 mg PO BID YESSENIA Stop: 01/04/24 20:59 Last Admin: 07/14/23 08:58 Dose: 50 mg Sennosides (Sennosides 8.6 Mg Tablet) 2 tab PO DAILY@12 PRN PRN Reason: If no BM in 2 days Stop: 07/08/24 11:59 Sodium Chloride (Sodium Chloride 0.9 % 10 Ml Syringe) 0 ml IV-PUSH PRN PRN PRN Reason: Flush Stop: 07/07/24 18:09 Sodium Chloride (Sodium Chloride 0.9 % 10 Ml Syringe) 0 ml IV-PUSH PRN PRN PRN Reason: Flush Stop: 07/08/24 09:04 Last Admin: 07/14/23 13:28 Dose: 10 ml Vitamin D (Cholecalciferol 25 Mcg (1,000 Units) Tablet) 25 mcg PO DAILY YESSENIA Stop: 07/08/24 08:59 Last Admin: 07/14/23 08:57 Dose: 25 mcg Allergies lisinopril Allergy (Unknown, Verified 06/30/23 12:32) Cough gabapentin Allergy (Verified 06/30/23 12:32) Swelling of Lip/Tongue/Throat Results - Nephrology Labs 07/14/23 04:45 07/14/23 04:45 Labs: 07/14/23 04:45 BUN 57 H Creatinine 5.18 H Phosphorus 2.9 Albumin 3.0 L Radiology Impressions Impressions - last 24 hours: Any impression(s) listed above is documentation that was entered by the reading physician into a diagnostic report(s) for Cinthya Wilson. I have reviewed the report(s) and am incorporating any findings in the treatment plan of this patient where applicable. 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 She currently goes to the [facility] dialysis unit on MWF schedule. (2) Odontoid fracture: Assessment/Problem Details: Patient presents after a fall and was found to have odontoid fracture. She underwent the surgery on 07/04/2023. (3) Type 2 diabetes mellitus with diabetic chronic kidney disease: Assessment/Problem Details: She has insulin-dependent type 2 diabetes mellitus. (4) Secondary hyperparathyroidism: Assessment/Problem Details: She has secondary hyperparathyroidism due to the ESRD and hyperphosphatemia. She currently takes calcium acetate at home. 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 She takes midodrine for intradialytic hypotension. Plan * Hemodialysis today for 210 minutes, 2K bath. Ultrafiltration 2 L .Continue midodrine 5 mg as needed for systolic blood pressure below 90s. * Potassium level 5.5 mmol/L. This should correct with today hemodialysis. * Patient gets hemodialysis with no heparin since she just had surgery on 07/03,. Noted a drop in hemoglobin to 9.0 g deciliter. Recheck hemoglobin in a.m. * She has adequate iron stores. Will start Aranesp today * Continue home dose of the calcium acetate. * Monitor CBC and renal panel before dialysis on MWF schedule. Documented By: Geronimo Graham MD 07/14/23 1453 Signed By: <Electronically signed by Geronimo Graham MD> 07/14/23 57[address] [place] [facility] Work Phone: [phone]) 688-325606-03-2024 Progress note Author Quintin Johnson [facility] July 14, 2023 2:32pm Note Date/Time July 14, 2023 2:32p m [facility] [address] [place] [address] Physiatry(Rehab) Progress Note Signed Patient: Cinthya Wilson MR#: [id number] : 1945 Acct:[id number] Age/Sex: 78 / F Adm Date: 4 Loc: Room: [address] [place] [address] Type: ADM IN Attending Dr: Quintin Johnson MD Copies to: ~ Date of Service: 07/14/2023 Subjective Subjective Narrative: Ms. Wilson is a 78 year old female with multiple comorbidities including type IIDM, ESRD on hemodialysis Friday/Friday?Friday, COPD, CHF who presents to acute inpatient rehabilitation unit with functional impairments in the setting of C2 and L1 fractures s/p C1?C3 fixation. Patient reports sustaining a fall after her walker wheel got stuck in a sidewalkcrevice. She fell backwards again the back of her head. No loss of consciousness. She was able to get herself up. Patient did not seek medical care right away and continued to go about her daily activities for several more days. She started developing upper and lower extremity weakness as well as blurry vision and a headache, which prompted her to seek care. Upon ER evaluation she was found to have an odontoid fracture. Neurosurgery was consulted and recommended an operative intervention. Patient received cardiology clearance prior to procedure due to extensive cardiac history. ICD interrogation demonstrated no significant abnormalities. Nephrology was also consulted for dialysis management. On 07/05/2023 Dr. Weiss performed posterior cervical fusion with C1, C2, C3 fixation without major complications. Patient is to wear c-collar postoperatively. She was evaluated by PT/OT and recommended acute rehab for strengthening. INTERVAL HISTORY: Complained of some nonspecific vision changes including diplopia only with near gaze. Neurology was consulted over the weekend, workup including CT head is pending. She otherwise feels well. Is working with therapy. Vitals are stable. Pain is reasonably controlled. She was able to walk about 170 feet today with a walker. Hemoglobin is 9 this morning, down from 10.4 last week. Review of Systems Review of Systems All other systems reviewed & are negative unless noted below or in HPI Exam Physical Exam Vital Signs: Temp Pulse Resp BP Pulse Ox O2 Del Method O2 Flow Rate 97.5 F L 67 16 100/52 L 100 Nasal Cannula 1 07/14/23 13:10 07/14/23 14:01 07/14/23 13:10 07/14/23 14:01 07/14/23 13:10 07/14/23 13:10 07/14/23 13:10 Narrative: Gen: Awake, oriented, cooperative. HEENT: Atraumatic, PERRL, EOMI Resp: No respiratory distress Cardio: Extremities well perfused MSK: Moves all extremities spontaneously. C collar noted Neuro: CN grossly intact Skin: No swelling, erythema, ecchymosis appreciated Psych: Mood and affect normal Objective Labs 07/14/23 04:45 07/14/23 04:45 Labs: Laboratory Results - last 24 hr 07/13/23 07/13/23 07/14/23 16:15 20:22 04:45 Corrected WBC 7.7 RBC 3.10 L Hgb 9.0 L Hct 28.2 L MCV 91.1 MCH 29.1 MCHC 31.9 L RDW 17.4 H Plt Count 222 MPV 8.3 PHA Creatinine Clear 8.77 Sodium 132 L Potassium 5.5 H Chloride 94 L Carbon Dioxide 27.5 Anion Gap 16.0 H BUN 57 H Creatinine 5.18 H Est GFR (CKD-EPI) 8.112 Glucose 153 H POC Glucose 262 145 POC Glucose Comment Estimat Average Glucose 180 Hemoglobin A1c 7.9 H Calcium 9.3 Phosphorus 2.9 Albumin 3.0 L 07/14/23 07/14/23 06:01 11:49 Corrected WBC RBC Hgb Hct MCV MCH MCHC RDW Plt Count MPV PHA Creatinine Clear Sodium Potassium Chloride Carbon Dioxide Anion Gap BUN Creatinine Est GFR (CKD-EPI) Glucose POC Glucose 158 292 POC Glucose Comment Glu2: cleaned meter Estimat Average Glucose Hemoglobin A1c Calcium Phosphorus Albumin Medications and Allergies Allergies and Active Meds: Allergies lisinopril Allergy (Unknown, Verified 06/30/23 12:32) Cough gabapentin Allergy (Verified 06/30/23 12:32) Swelling of Lip/Tongue/Throat Active Medications Generic Name Dose Route Start Last Admin Trade Name Freq PRN Reason Stop Dose Admin Acetaminophen 500 mg 07/08/23 18:10 07/10/23 13:01 Acetaminophen 500 Mg Tablet PO 07/07/24 18:09 500 mg Q4H PRN Administration Pain Al Hydrox/Mg Hydrox/Simethicone 30 ml 07/08/23 18:10 07/13/23 22:44 Mag Hydrox/Al Hydrox/Simeth 30 Ml Udc PO 07/07/24 18:09 30 ml Q4H PRN Administration Indigestion Albuterol 0.63 mg 07/08/23 19:03 07/13/23 22:40 Albuterol Neb 2.5 Mg/3 Ml Vial.Neb INHALATION 07/07/24 19:02 0.63 mg QID PRN Administration Shortness Of Breath Aspirin 81 mg 07/09/23 09:00 07/14/23 08:56 Aspirin 81 Mg Tablet.Dr PO 07/08/24 08:59 81 mg DAILY YESSENIA Administration Atorvastatin Calcium 40 mg 07/08/23 21:00 07/13/23 20:23 Atorvastatin 40 Mg Tablet PO 07/07/24 20:59 40 mg QPM YESSENIA Administration Bisacodyl 10 mg 07/08/23 18:10 Bisacodyl 10 Mg Supp.Rect RI 07/07/24 18:09 DAILY PRN Constipation Budesonide/Formoterol Fumarate 2 puff 07/08/23 21:00 07/14/23 05:51 Budesonide/Formoterol 80-4.5 Mcg 60 Puff/6.9 Gm Hfa.Aer.Ad INHALATION 07/07/24 20:59 2 puff BID YESSENIA Administration Buspirone HCl 10 mg 07/08/23 21:00 07/14/23 08:57 Buspirone 10 Mg Tablet PO 07/07/24 20:59 10 mg BID YESSENIA Administration Calcium Acetate 667 mg 07/09/23 08:00 07/14/23 12:15 Calcium Acetate 667 Mg Capsule PO 07/08/24 07:59 667 mg TID.WITH.MEALS YESSENIA Administration Citalopram Hydrobromide 20 mg 07/09/23 09:00 07/14/23 08:56 Citalopram 20 Mg Tablet PO 07/08/24 08:59 20 mg DAILY YESSENIA Administration Diclofenac Sodium 4 gm 07/08/23 22:00 07/14/23 08:57 Diclofenac Sodium 1% Gel 100 Gm Tube TOPICAL 07/07/24 21:59 4 gm QID YESSENIA Administration Docusate Sodium 100 mg 07/08/23 18:10 Docusate 100 Mg Capsule PO 07/07/24 18:09 BID PRN Constipation Docusate Sodium 283 mg 07/08/23 18:10 Docusate Enema 283 Mg/5 Ml Enema RI 07/07/24 18:09 DAILY PRN Constipation Heparin Sodium (Porcine) 2,000 unit 07/11/23 15:41 07/14/23 13:28 Heparin 10,000 Unit/10 Ml Vial IV 07/10/24 15:40 2,000 unit PRN PRN Administration Dialysis Heparin Sodium (Porcine) 1,000 unit 07/11/23 15:41 07/14/23 13:28 Heparin 10,000 Unit/10 Ml Vial IV 07/10/24 15:40 1,000 unit PRN PRN Administration Dialysis Sodium Chloride 1,000 mls @ 0 mls/hr 07/09/23 09:05 07/14/23 13:29 0.9% Sodium Chloride 1,000 Ml MISCELLANE 07/08/24 09:04 Infused .Q0M PRN Infusion Dialysis As Directed Insulin Aspart 0 units 07/08/23 22:00 07/14/23 12:15 Insulin Aspart 300 Units/3 Ml Insuln.Pen SUBCUT 07/07/24 21:59 7 units TID.WM.HS YESSENIA Administration Protocol Ipratropium [place] 0.5 mg 07/09/23 08:00 07/14/23 10:42 Ipratropium [place] 0.5 Mg/2.5 Ml Vial.Neb INHALATION 07/08/24 07:59 0.5 mg QID.RESP YESSENIA Administration Lactulose 30 gm 07/08/23 18:10 Lactulose 20 Gm/30 Ml Udc PO 07/07/24 18:09 DAILY PRN Constipation Lidocaine 1 patch 07/08/23 21:00 07/14/23 08:57 Lidocaine 4% Adh..Patch TOPICAL 07/07/24 20:59 1 patch BID YESSENIA Administration Lubiprostone 8 mcg 07/08/23 21:00 07/14/23 08:56 Lubiprostone 8 Mcg Capsule PO 07/07/24 20:59 8 mcg BID YESSENIA Administration Metoprolol Tartrate 12.5 mg 07/09/23 09:00 07/14/23 08:56 Metoprolol Tartrate 12.5 Mg Tablet PO 07/08/24 08:59 12.5 mg DAILY YESSENIA Administration Mexiletine HCl 200 mg 07/08/23 22:00 07/14/23 05:40 Mexiletine 200 Mg Capsule PO 07/07/24 21:59 200 mg Q8HR YESSENIA Administration Midodrine 5 mg 07/09/23 07:00 07/14/23 12:15 Midodrine 5 Mg Tablet PO 07/08/24 06:59 5 mg TID.7A.12P.5P YESSENIA Administration Midodrine 5 mg 07/09/23 14:21 Midodrine 5 Mg Tablet PO 07/08/24 14:20 MoWeFr PRN Hypotension, sbp <90 Multivitamins 1 tab 07/09/23 09:00 07/14/23 08:56 Multivitamin 1 Tab Tablet PO 07/08/24 08:59 1 tab DAILY YESSENIA Administration Nystatin 1 applic 07/11/23 12:45 07/14/23 08:58 Nystatin 100,000 Unit/Gram Powder 15 Gm Bottle TOPICAL 07/10/24 12:44 1 applic BID YESSENIA Administration Oxycodone/Acetaminophen 1 tab 07/08/23 18:09 07/14/23 09:27 Oxycodone/Acetaminophen 5-325 Mg Tablet PO 1 tab Q6HR PRN Administration pain Polyethylene Glycol 17 gm 07/08/23 21:00 07/14/23 08:58 Polyethylene Glycol 3350 17 Gm Powd.Pack PO 07/07/24 20:59 17 gm BID YESSENIA Administration Pramipexole Dihydrochloride 0.5 mg 07/08/23 22:00 07/13/23 20:23 Pramipexole 0.5 Mg Tablet PO 07/07/24 21:59 0.5 mg HS YESSENIA Administration Pregabalin 50 mg 07/08/23 21:00 07/14/23 08:58 Pregabalin 50 Mg Capsule PO 01/04/24 20:59 50 mg BID YESSENIA Administration Sennosides 2 tab 07/09/23 12:00 Sennosides 8.6 Mg Tablet PO 07/08/24 11:59 DAILY@12 PRN If no BM in 2 days Sodium Chloride 0 ml 07/08/23 18:10 Sodium Chloride 0.9 % 10 Ml Syringe IV-PUSH 07/07/24 18:09 PRN PRN Flush Sodium Chloride 0 ml 07/09/23 09:05 07/14/23 13:28 Sodium Chloride 0.9 % 10 Ml Syringe IV-PUSH 07/08/24 09:04 10 ml PRN PRN Administration Flush Vitamin D 25 mcg 07/09/23 09:00 07/14/23 08:57 Cholecalciferol 25 Mcg (1,000 Units) Tablet PO 07/08/24 08:59 25 mcg DAILY YESSENIA Administration Assessment/Plan Assessment/Plan (1) Odontoid fracture with type II morphology: (2) Chronic hypotension: (3) Type 2 diabetes mellitus with diabetic chronic kidney disease: (4) Anemia of renal disease: (5) Secondary hyperparathyroidism: (6) CAD (coronary artery disease): Qualifiers: Associated angina: without angina Coronary Disease-Associated Artery/Lesion type: cheesh-na artery [place] vs. transplanted heart: cheesh-na heart Qualified Code(s): I25.10 - Atherosclerotic heart disease of cheesh-na coronary artery without angina pectoris (7) ESRD (end stage renal disease): (8) COPD (chronic obstructive pulmonary disease): (9) Impaired mobility and activities of daily living: (10) Cognitive communication deficit: (11) Oropharyngeal dysphagia: Plan Patient is a 78-year-old female with complex past medical history including CAD,DM, ESRD on dialysis who presents to acute inpatient rehabilitation unit with multifactorial functional impairments in the setting of C2 fracture s/p surgicalrepair. * Repeat CBC tomorrow, hemoglobin 9.0 today, down from 10.4 last week * Appreciate Neurology consultation regarding vision changes. Workup ongoing. * Otherwise improving with therapy, ambulatory 170'. * Pain controlled, moving bowel/bladder. Patient education Pressure ulcer prophylaxis; encourage mobilization, frequent postural changes, pressure-relief techniques DVT prophylaxis Encourage deep breathing exercise incentive spirometry. Monitor bladder. Toileting schedule. Continue current bladder management, with scans as needed and CIC if needed. Start bowel care program every day to obtain continence, prevent ileus. Maintain fall precautions Gait and balance retraining Functional training and self-care and home management, including activities of daily living and instrumental activities of daily living Provision of the necessary gait aids and functional adaptive equipment to enhance the patient's a functional orthodoxy Ensure adequate nutrition and hydration Sleep she has Pain: Continue current regimen Discharge planning: Hopefully home with family in 10 days Patient was personally seen by me, Dr. Johnson on the day of encounter, reviewed the history and the relevant portions of the chart, including current orders, allied health and sustainability consultant notes, labs/imaging and performed chow elements of exam and I formulated the plan of care and facilitated the medical decision making. I completed a substantive portion of this encounter, the medical decision makingportion of this note in its entirety, including Allied health note review, nursing note review, sustainability consultant note review, discussion with nursing and case management, and more than 50% of my time was spent on counseling and coordination of care, time spent 25 minutes Documented By: Quintin Johnson MD 07/14/23 1428 Signed By: <Electronically signed by Quintin Johnson MD> 07/14/23 1432 [facility] Work Phone: [phone]) [phone] Progress note Author Narinder Toussaint [facility] July 11, 2023 1:07pm Note Date/Time July 11, 2023 1:07p [place] [facility] [address] [place] [address] Nephrology Progress Note Signed Patient: Cinthya Wilson MR#: [id number] : 1945 Acct:[id number] Age/Sex: 78 / F Adm Date: 4 Loc: 5T Room: 5L8622-7 Type: ADM IN Attending Dr: Quintin Johnson MD Copies to: ~ Date of Service: 07/11/2023 Subjective Subjective Narrative: This is a 78-year-old female well-known to our service from dialysis unit who isbeing seen in the rehab for management of ESRD and dialysis. 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 Her other comorbidities are CAD s/p PCI, COPD, chronic hypoxic diastolic failure, cardiac arrhythmia s/p AICD and dyslipidemia. She was admitted to [facility] through ER after fall and she was found to have new fracture at the base of the odontoid. There is no intracranial bleeding. Patient underwent surgery on 07/04/2023 and subsequently was moved up to the rehab. Interval history Is being seen and examined on hemodialysis. She stated that she is done with physical therapy today. She has no complaints. No shortness of breath. No nausea or vomiting. Blood pressure is stable in the 120s over 50s on midodrine She has AV fistula with good thrill Exam Physical Exam Vital Signs: Temp Pulse Resp BP Pulse Ox O2 Del Method O2 Flow Rate 36.6 C 73 16 122/53 L 99 Nasal Cannula 2 07/11/23 12:45 07/11/23 12:45 07/11/23 12:45 07/11/23 12:45 07/11/23 12:45 07/11/23 12:45 07/11/23 12:45 Narrative: Constitutional: awake with no respiratory distress on room air. HEENT: She has mild pallor. Mucous membranes are moist. Neck: She has a neck collar s/p pedicle screw fixation C1-C2 Cardiovascular: RRR, normal S1-S2, no gallop or rub, No JVD Respiratory: Diminished breath sounds. No crackles or wheezes. Gastrointestinal: Soft, non tender, positive bowel sounds. No palpable organs or masses Extremities: trace edema Skin: No rashes or bruises Neurology: Awake, alert, oriented ?3, No focal motor or sensory deficits. Psych: Normal mood and affect Vascular access: Left arm AV fistula with good thrill. Objective Intake and Output I&O: Intake & Output 05/28/24 05/29/24 05/30/24 05/31/24 23:59 23:59 23:59 23:59 Intake Total 0 / 0 841 / 841 780 / 780 400 / 400 Output Total 3001 / 3001 Balance 0 / 0 -2160 / -2160 780 / 780 400 / 400 Weight 66.6 kg 65.941 kg 66.6 kg 64.7 kg Meds and Allergies Meds: Active Medications Acetaminophen (Acetaminophen 500 Mg Tablet) 500 mg PO Q4H PRN PRN Reason: Pain Stop: 07/07/24 18:09 Last Admin: 07/10/23 13:01 Dose: 500 mg Al Hydrox/Mg Hydrox/Simethicone (Mag Hydrox/Al Hydrox/Simeth 30 Ml Udc) 30 ml PO Q4H PRN PRN Reason: Indigestion Stop: 07/07/24 18:09 Albuterol (Albuterol Neb 2.5 Mg/3 Ml Vial.Neb) 0.63 mg INHALATION QID PRN PRN Reason: Shortness Of Breath Stop: 07/07/24 19:02 Aspirin (Aspirin 81 Mg Tablet.) 81 mg PO DAILY YESSENIA Stop: 07/08/24 08:59 Last Admin: 07/11/23 08:08 Dose: 81 mg Atorvastatin Calcium (Atorvastatin 40 Mg Tablet) 40 mg PO QPM YESSENIA Stop: 07/07/24 20:59 Last Admin: 07/10/23 21:45 Dose: 40 mg Bisacodyl (Bisacodyl 10 Mg Supp.Rect) 10 mg RI DAILY PRN PRN Reason: Constipation Stop: 07/07/24 18:09 Budesonide/Formoterol Fumarate (Budesonide/Formoterol 80-4.5 Mcg 60 Puff/6.9 Gm Hfa.Aer.Ad) 2 puff INHALATION BID YESSENIA Stop: 07/07/24 20:59 Last Admin: 07/11/23 06:11 Dose: 2 puff Buspirone HCl (Buspirone 10 Mg Tablet) 10 mg PO BID YESSENIA Stop: 07/07/24 20:59 Last Admin: 07/11/23 08:07 Dose: 10 mg Calcium Acetate (Calcium Acetate 667 Mg Capsule) 667 mg PO TID.WITH.MEALS YESSENIA Stop: 07/08/24 07:59 Last Admin: 07/11/23 11:41 Dose: 667 mg Citalopram Hydrobromide (Citalopram 20 Mg Tablet) 20 mg PO DAILY [facility] Stop: 07/08/24 08:59 Last Admin: 07/11/23 08:07 Dose: 20 mg Diclofenac Sodium (Diclofenac Sodium 1% Gel 100 Gm Tube) 4 gm TOPICAL QID YESSENIA Stop: 07/07/24 21:59 Last Admin: 07/11/23 08:08 Dose: 4 gm Docusate Sodium (Docusate 100 Mg Capsule) 100 mg PO BID PRN PRN Reason: Constipation Stop: 07/07/24 18:09 Docusate Sodium (Docusate Enema 283 Mg/5 Ml Enema) 283 mg RI DAILY PRN PRN Reason: Constipation Stop: 07/07/24 18:09 Sodium Chloride (0.9% Sodium Chloride 1,000 Ml) 1,000 mls @ 0 mls/hr MISCELLANE.Q0M PRN PRN Reason: Dialysis Stop: 07/08/24 09:04 Last Infusion: 07/09/23 15:12 Dose: Infused Insulin Aspart (Insulin Aspart 300 Units/3 Ml Insuln.Pen) 0 units SUBCUT TID.WM.HS [facility]; Protocol Stop: 07/07/24 21:59 Last Admin: 07/11/23 11:45 Dose: 7 units Ipratropium [place] (Ipratropium [place] 0.5 Mg/2.5 Ml Vial.Neb) 0.5 mg INHALATION QID.RESP [facility] Stop: 07/08/24 07:59 Last Admin: 07/11/23 10:32 Dose: 0.5 mg Lactulose (Lactulose 20 Gm/30 Ml Udc) 30 gm PO DAILY PRN PRN Reason: Constipation Stop: 07/07/24 18:09 Lidocaine (Lidocaine 4% Adh..Patch) 1 patch TOPICAL BID [facility] Stop: 07/07/24 20:59 Last Admin: 07/11/23 08:08 Dose: 1 patch Lubiprostone (Lubiprostone 8 Mcg Capsule) 8 mcg PO BID [facility] Stop: 07/07/24 20:59 Last Admin: 07/11/23 08:08 Dose: 8 mcg Metoprolol Tartrate (Metoprolol Tartrate 12.5 Mg Tablet) 12.5 mg PO DAILY [facility] Stop: 07/08/24 08:59 Last Admin: 07/11/23 08:03 Dose: 12.5 mg Mexiletine HCl (Mexiletine 200 Mg Capsule) 200 mg PO Q8HR YESSENIA Stop: 07/07/24 21:59 Last Admin: 07/11/23 06:05 Dose: 200 mg Midodrine (Midodrine 5 Mg Tablet) 5 mg PO TID.7A.12P.5P YESSENIA Stop: 07/08/24 06:59 Last Admin: 07/11/23 11:41 Dose: 5 mg Midodrine (Midodrine 5 Mg Tablet) 5 mg PO MoWeFr PRN PRN Reason: Hypotension, sbp <90 Stop: 07/08/24 14:20 Multivitamins (Multivitamin 1 Tab Tablet) 1 tab PO DAILY YESSENIA Stop: 07/08/24 08:59 Last Admin: 07/11/23 08:08 Dose: 1 tab Nystatin (Nystatin 100,000 Unit/Gram Powder 15 Gm Bottle) 1 applic TOPICAL BID YESSENIA Stop: 07/10/24 12:44 Oxycodone/Acetaminophen (Oxycodone/Acetaminophen 5-325 Mg Tablet) 1 tab PO [id number] PRN Reason: pain Last Admin: 07/10/23 21:45 Dose: 1 tab Polyethylene Glycol (Polyethylene Glycol 3350 17 Gm Powd.Pack) 17 gm PO BID YESSENIA Stop: 07/07/24 20:59 Last Admin: 07/11/23 08:09 Dose: Not Given Pramipexole Dihydrochloride (Pramipexole 0.5 Mg Tablet) 0.5 mg PO HS YESSENIA Stop: 07/07/24 21:59 Last Admin: 07/10/23 21:45 Dose: 0.5 mg Pregabalin (Pregabalin 50 Mg Capsule) 50 mg PO BID YESSENIA Stop: 01/04/24 20:59 Last Admin: 07/11/23 08:08 Dose: 50 mg Sennosides (Sennosides 8.6 Mg Tablet) 2 tab PO DAILY@12 PRN PRN Reason: If no BM in 2 days Stop: 07/08/24 11:59 Sodium Chloride (Sodium Chloride 0.9 % 10 Ml Syringe) 0 ml IV-PUSH PRN PRN PRN Reason: Flush Stop: 07/07/24 18:09 Sodium Chloride (Sodium Chloride 0.9 % 10 Ml Syringe) 0 ml IV-PUSH PRN PRN PRN Reason: Flush Stop: 07/08/24 09:04 Last Admin: 07/09/23 14:06 Dose: 10 ml Vitamin D (Cholecalciferol 25 Mcg (1,000 Units) Tablet) 25 mcg PO DAILY YESSENIA Stop: 07/08/24 08:59 Last Admin: 07/11/23 08:08 Dose: 25 mcg Allergies lisinopril Allergy (Unknown, Verified 06/30/23 12:32) Cough gabapentin Allergy (Verified 06/30/23 12:32) Swelling of Lip/Tongue/Throat Results - Nephrology Labs 07/09/23 05:33 07/09/23 05:33 Radiology Impressions Impressions - last 24 hours: Any impression(s) listed above is documentation that was entered by the reading physician into a diagnostic report(s) for Cinthya Wilson. I have reviewed the report(s) and am incorporating any findings in the treatment plan of this patient where applicable. 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 She currently goes to the [facility] dialysis unit on MWF schedule. (2) Odontoid fracture: Assessment/Problem Details: Patient presents after a fall and was found to have odontoid fracture. She underwent the surgery on 07/04/2023. (3) Type 2 diabetes mellitus with diabetic chronic kidney disease: Assessment/Problem Details: She has insulin-dependent type 2 diabetes mellitus. (4) Secondary hyperparathyroidism: Assessment/Problem Details: She has secondary hyperparathyroidism due to the ESRD and hyperphosphatemia. She currently takes calcium acetate at home. 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 She takes midodrine for intradialytic hypotension. Plan * Hemodialysis today for 210 minutes, 2K bath. No labs today however we are going to order lab with next hemodialysis on Friday. Patient has hypotension on midodrine. Ultrafiltration 2 to 2.5 L as tolerated. She has no edema. Continue midodrine 5 mg as needed for systolic blood pressure below 90s. * Patient gets hemodialysis with no heparin since she just had surgery on 07/03, we will going to restart heparin with next hemodialysis on Friday. Patient is currently using Citrasate * She has adequate iron stores. Erythropoietin will be started if hemoglobin drops below 9.5 per * Continue home dose of the calcium acetate. * Monitor CBC and renal panel before dialysis on MWF schedule. Documented By: Narinder Toussaint MD 07/11/231303 Signed By: <Electronically signed by MD Narinder Toussaint> 07/11/23 [address] [facility] Work Phone: 1(165) 410-572005-31-2024 Progress note Author Quintin Johnson [facility] July 11, 2023 12:56pm Note Date/Time July 11, 2023 10:20 am [facility] [address] [place] [address] Physiatry(Rehab) Progress Note Signed Patient: Cinthya Wilson MR#: [id number] : 1945 Acct:[id number] Age/Sex: 78 / F Adm Date: 4 Loc: Room: [address] [place] [address] Type: ADM IN Attending Dr: Quintin Johnson MD Copies to: ~ Date of Service: 07/11/2023 Subjective Subjective Narrative: Ms. Wilson is a 78 year old female with multiple comorbidities including type IIDM, ESRD on hemodialysis Friday/Friday?Friday, COPD, CHF who presents to acute inpatient rehabilitation unit with functional impairments in the setting of C2 and L1 fractures s/p C1?C3 fixation. Patient reports sustaining a fall after her walker wheel got stuck in a sidewalrevice. She fell backwards again the back of her head. No loss of consciousness. She was able to get herself up. Patient did not seek medical care right away and continued to go about her daily activities for several more days. She started developing upper and lower extremity weakness as well as blurry vision and a headache, which prompted her to seek care. Upon ER evaluation she was found to have an odontoid fracture. Neurosurgery was consulted and recommended an operative intervention. Patient received cardiology clearance prior to procedure due to extensive cardiac history. ICD interrogation demonstrated no significant abnormalities. Nephrology was also consulted for dialysis management. On 07/05/2023 Dr. Weiss performed posterior cervical fusion with C1, C2, C3 fixation without major complications. Patient is to wear c-collar postoperatively. She was evaluated by PT/OT and recommended acute rehab for strengthening. INTERVAL HISTORY: Stable and working well with therapy. Walking 130' contact guard assist. Hemodialysis today. Vitals are stable. Review of Systems Review of Systems All other systems reviewed & are negative unless noted below or in HPI Exam Physical Exam Vital Signs: Temp Pulse Resp BP Pulse Ox O2 Del Method O2 Flow Rate 98.0 F 66 20 124/68 97 Nasal Cannula 2 07/11/23 05:59 07/11/23 06:12 07/11/23 06:12 07/11/23 05:59 07/11/23 08:00 07/11/23 08:00 07/11/23 08:00 Narrative: Gen: Awake, oriented, cooperative. HEENT: Atraumatic, PERRL, EOMI Resp: No respiratory distress Cardio: Extremities well perfused MSK: Moves all extremities spontaneously. C collar noted Neuro: CN grossly intact Skin: No swelling, erythema, ecchymosis appreciated Psych: Mood and affect normal Objective Labs 07/09/23 05:33 07/09/23 05:33 Labs: Laboratory Results - last 24 hr 07/10/23 07/10/23 07/10/23 10:56 10:56 16:31 POC Glucose 191 212 POC Glucose Comment Cleaned meter 07/10/23 07/11/23 21:06 07:06 POC Glucose 258 165 POC Glucose Comment Glu2: cleaned meter Medications and Allergies Allergies and Active Meds: Allergies lisinopril Allergy (Unknown, Verified 06/30/23 12:32) Cough gabapentin Allergy (Verified 06/30/23 12:32) Swelling of Lip/Tongue/Throat Active Medications Generic Name Dose Route Start Last Admin Trade Name Molinaq PRN Reason Stop Dose Admin Acetaminophen 500 mg 07/08/23 18:10 07/10/23 13:01 Acetaminophen 500 Mg Tablet PO 07/07/24 18:09 500 mg Q4H PRN Administration Pain Al Hydrox/Mg Hydrox/Simethicone 30 ml 07/08/23 18:10 Mag Hydrox/Al Hydrox/Simeth 30 Ml Udc PO 07/07/24 18:09 Q4H PRN Indigestion Albuterol 0.63 mg 07/08/23 19:03 Albuterol Neb 2.5 Mg/3 Ml Vial.Neb INHALATION 07/07/24 19:02 QID PRN Shortness Of Breath Aspirin 81 mg 07/09/23 09:00 07/11/23 08:08 Aspirin 81 Mg Tablet.Dr PO 07/08/24 08:59 81 mg DAILY YESSENIA Administration Atorvastatin Calcium 40 mg 07/08/23 21:00 07/10/23 21:45 Atorvastatin 40 Mg Tablet PO 07/07/24 20:59 40 mg QPM YESSENIA Administration Bisacodyl 10 mg 07/08/23 18:10 Bisacodyl 10 Mg Supp.Rect RI 07/07/24 18:09 DAILY PRN Constipation Budesonide/Formoterol Fumarate 2 puff 07/08/23 21:00 07/11/23 06:11 Budesonide/Formoterol 80-4.5 Mcg 60 Puff/6.9 Gm Hfa.Aer.Ad INHALATION 07/07/24 20:59 2 puff BID YESSENIA Administration Buspirone HCl 10 mg 07/08/23 21:00 07/11/23 08:07 Buspirone 10 Mg Tablet PO 07/07/24 20:59 10 mg BID YESSENIA Administration Calcium Acetate 667 mg 07/09/23 08:00 07/11/23 08:07 Calcium Acetate 667 Mg Capsule PO 07/08/24 07:59 667 mg TID.WITH.MEALS YESSENIA Administration Citalopram Hydrobromide 20 mg 07/09/23 09:00 07/11/23 08:07 Citalopram 20 Mg Tablet PO 07/08/24 08:59 20 mg DAILY YESSENIA Administration Diclofenac Sodium 4 gm 07/08/23 22:00 07/11/23 08:08 Diclofenac Sodium 1% Gel 100 Gm Tube TOPICAL 07/07/24 21:59 4 gm QID YESSENIA Administration Docusate Sodium 100 mg 07/08/23 18:10 Docusate 100 Mg Capsule PO 07/07/24 18:09 BID PRN Constipation Docusate Sodium 283 mg 07/08/23 18:10 Docusate Enema 283 Mg/5 Ml Enema RI 07/07/24 18:09 DAILY PRN Constipation Sodium Chloride 1,000 mls @ 0 mls/hr 07/09/23 09:05 07/09/23 15:12 0.9% Sodium Chloride 1,000 Ml MISCELLANE 07/08/24 09:04 Infused .Q0M PRN Infusion Dialysis As Directed Insulin Aspart 0 units 07/08/23 22:00 07/11/23 08:09 Insulin Aspart 300 Units/3 Ml Insuln.Pen SUBCUT 07/07/24 21:59 3 units TID.WM.HS YESSENIA Administration Protocol Ipratropium [place] 0.5 mg 07/09/23 08:00 07/11/23 06:11 Ipratropium [place] 0.5 Mg/2.5 Ml Vial.Neb INHALATION 07/08/24 07:59 0.5 mg QID.RESP YESSENIA Administration Lactulose 30 gm 07/08/23 18:10 Lactulose 20 Gm/30 Ml Udc PO 07/07/24 18:09 DAILY PRN Constipation Lidocaine 1 patch 07/08/23 21:00 07/11/23 08:08 Lidocaine 4% Adh..Patch TOPICAL 07/07/24 20:59 1 patch BID YESSENIA Administration Lubiprostone 8 mcg 07/08/23 21:00 07/11/23 08:08 Lubiprostone 8 Mcg Capsule PO 07/07/24 20:59 8 mcg BID YESSENIA Administration Metoprolol Tartrate 12.5 mg 07/09/23 09:00 07/11/23 08:03 Metoprolol Tartrate 12.5 Mg Tablet PO 07/08/24 08:59 12.5 mg DAILY YESSENIA Administration Mexiletine HCl 200 mg 07/08/23 22:00 07/11/23 06:05 Mexiletine 200 Mg Capsule PO 07/07/24 21:59 200 mg Q8HR YESSENIA Administration Midodrine 5 mg 07/09/23 07:00 07/11/23 06:05 Midodrine 5 Mg Tablet PO 07/08/24 06:59 5 mg TID.7A.12P.5P YESSENIA Administration Midodrine 5 mg 07/09/23 14:21 Midodrine 5 Mg Tablet PO 07/08/24 14:20 MoWeFr PRN Hypotension, sbp <90 Multivitamins 1 tab 07/09/23 09:00 07/11/23 08:08 Multivitamin 1 Tab Tablet PO 07/08/24 08:59 1 tab DAILY YESSENIA Administration Oxycodone/Acetaminophen 1 tab 07/08/23 18:09 07/10/23 21:45 Oxycodone/Acetaminophen 5-325 Mg Tablet PO 1 tab Q6HR PRN Administration pain Polyethylene Glycol 17 gm 07/08/23 21:00 07/11/23 08:09 Polyethylene Glycol 3350 17 Gm Powd.Pack PO 07/07/24 20:59 Not Given BID YESSENIA Pramipexole Dihydrochloride 0.5 mg 07/08/23 22:00 07/10/23 21:45 Pramipexole 0.5 Mg Tablet PO 07/07/24 21:59 0.5 mg HS YESSENIA Administration Pregabalin 50 mg 07/08/23 21:00 07/11/23 08:08 Pregabalin 50 Mg Capsule PO 01/04/24 20:59 50 mg BID YESSENIA Administration Sennosides 2 tab 07/09/23 12:00 Sennosides 8.6 Mg Tablet PO 07/08/24 11:59 DAILY@12 PRN If no BM in 2 days Sodium Chloride 0 ml 07/08/23 18:10 Sodium Chloride 0.9 % 10 Ml Syringe IV-PUSH 07/07/24 18:09 PRN PRN Flush Sodium Chloride 0 ml 07/09/23 09:05 07/09/23 14:06 Sodium Chloride 0.9 % 10 Ml Syringe IV-PUSH 07/08/24 09:04 10 ml PRN PRN Administration Flush Vitamin D 25 mcg 07/09/23 09:00 07/11/23 08:08 Cholecalciferol 25 Mcg (1,000 Units) Tablet PO 07/08/24 08:59 25 mcg DAILY YESSENIA Administration Assessment/Plan Assessment/Plan (1) Odontoid fracture with type II morphology: (2) Chronic hypotension: (3) Type 2 diabetes mellitus with diabetic chronic kidney disease: (4) Anemia of renal disease: (5) Secondary hyperparathyroidism: (6) CAD (coronary artery disease): Qualifiers: Associated angina: without angina Coronary Disease-Associated Artery/Lesion type: cheesh-na artery [place] vs. transplanted heart: cheesh-na heart Qualified Code(s): I25.10 - Atherosclerotic heart disease of cheesh-na coronary artery without angina pectoris (7) ESRD (end stage renal disease): (8) COPD (chronic obstructive pulmonary disease): (9) Impaired mobility and activities of daily living: (10) Cognitive communication deficit: (11) Oropharyngeal dysphagia: Plan Patient is a 78-year-old female with complex past medical history including CAD,DM, ESRD on dialysis who presents to acute inpatient rehabilitation unit with multifactorial functional impairments in the setting of C2 fracture s/p surgicalrepair. * BP improved. * Speech therapy continues to treat for dysphagia. * Maintain c-collar as per neurosurgery recommendations. * Maintain current pain regimen. Patient education Pressure ulcer prophylaxis; encourage mobilization, frequent postural changes, pressure-relief techniques DVT prophylaxis Encourage deep breathing exercise incentive spirometry. Monitor bladder. Toileting schedule. Continue current bladder management, with scans as needed and CIC if needed. Start bowel care program every day to obtain continence, prevent ileus. Maintain fall precautions Gait and balance retraining Functional training and self-care and home management, including activities of daily living and instrumental activities of daily living Provision of the necessary gait aids and functional adaptive equipment to enhance the patient's a functional orthodoxy Ensure adequate nutrition and hydration Sleep she has Pain: Continue current regimen Discharge planning: Hopefully home with family in 10-14 days Patient was personally seen by me, Dr. Johnson on the day of encounter, reviewed the history and the relevant portions of the chart, including current orders, allied health and sustainability consultant notes, labs/imaging and performed chow elements of exam and I formulated the plan of care and facilitated the medical decision making. I completed a substantive portion of this encounter, the medical decision makingportion of this note in its entirety, including Allied health note review, nursing note review, sustainability consultant note review, discussion with nursing and case management, and more than 50% of my time was spent on counseling and coordination of care, time spent 27 minutes Documented By: Quintin Johnson MD 07/11/23 1020 Signed By: <Electronically signed by Quintin Johnson MD> 07/11/23 2069 [facility] Work Phone: [phone]) 664-487305-30-2024 Progress note Author Paul Eli [facility] July 10, 2023 2:24pm Note Date/Time July 10, 2023 2:24p [facility] ENTER [address] [place] [address] Physiatry(Rehab) Progress Note Signed Patient: Cinthya Wilson MR#: [id number] : 1945 Acct:[id number] Age/Sex: 78 / F Adm Date: 4 Loc: Room: [address] [place] [address] Type: ADM IN Attending Dr: Quintin Johnson MD Copies to: ~ Date of Service: 07/10/2023 Subjective Subjective Narrative: Ms. Wilson is a 78 year old female with multiple comorbidities including type IIDM, ESRD on hemodialysis Friday/Friday?Friday, COPD, CHF who presents to acute inpatient rehabilitation unit with functional impairments in the setting of C2 and L1 fractures s/p C1?C3 fixation. Patient reports sustaining a fall after her walker wheel got stuck in a sidewalkcrevice. She fell backwards again the back of her head. No loss of consciousness. She was able to get herself up. Patient did not seek medical care right away and continued to go about her daily activities for several more days. She started developing upper and lower extremity weakness as well as blurry vision and a headache, which prompted her to seek care. Upon ER evaluation she was found to have an odontoid fracture. Neurosurgery was consulted and recommended an operative intervention. Patient received cardiology clearance prior to procedure due to extensive cardiac history. ICD interrogation demonstrated no significant abnormalities. Nephrology was also consulted for dialysis management. On 07/05/2023 Dr. Weiss performed posterior cervical fusion with C1, C2, C3 fixation without major complications. Patient is to wear c-collar postoperatively. She was evaluated by PT/OT and recommended acute rehab for strengthening. INTERVAL HISTORY: Patient seen today resting in bed. In no obvious distress. She states that she feels tired due to therapy. Endorses some pain in the neck but recently receiveda pain pill and notes that this is improving. Denies chest pain, SOB, fever, chills. Admits to some minor constipation but is passing flatus. Tolerating therapy. Review of Systems Review of Systems All other systems reviewed & are negative unless noted below or in HPI Exam Physical Exam Vital Signs: Temp Pulse Resp BP Pulse Ox O2 Del Method O2 Flow Rate 98.5 F 64 18 101/60 96 Nasal Cannula 2 07/10/23 07:44 07/10/23 12:09 07/10/23 10:16 07/10/23 12:09 07/10/23 08:27 07/10/23 09:13 07/10/23 09:13 Narrative: Gen: Awake, oriented, cooperative. HEENT: Atraumatic, PERRL, EOMI Resp: No respiratory distress Cardio: Extremities well perfused MSK: Moves all extremities spontaneously. C collar noted Neuro: CN grossly intact Skin: No swelling, erythema, ecchymosis appreciated Psych: Mood and affect normal Objective Labs 07/09/23 05:33 07/09/23 05:33 Labs: Laboratory Results - last 24 hr 07/09/23 07/09/23 07/10/23 17:27 20:46 06:16 POC Glucose 153 234 119 POC Glucose Comment Glu2: cleaned meter Glu2: cleaned meter 07/10/23 07/10/23 10:56 10:56 POC Glucose 191 POC Glucose Comment Cleaned meter Medications and Allergies Allergies and Active Meds: Allergies lisinopril Allergy (Unknown, Verified 06/30/23 12:32) Cough gabapentin Allergy (Verified 06/30/23 12:32) Swelling of Lip/Tongue/Throat Active Medications Generic Name Dose Route Start Last Admin Trade Name Freq PRN Reason Stop Dose Admin Acetaminophen 500 mg 07/08/23 18:10 07/10/23 13:01 Acetaminophen 500 Mg Tablet PO 07/07/24 18:09 500 mg Q4H PRN Administration Pain Al Hydrox/Mg Hydrox/Simethicone 30 ml 07/08/23 18:10 Mag Hydrox/Al Hydrox/Simeth 30 Ml Udc PO 07/07/24 18:09 Q4H PRN Indigestion Albuterol 0.63 mg 07/08/23 19:03 Albuterol Neb 2.5 Mg/3 Ml Vial.Neb INHALATION 07/07/24 19:02 QID PRN Shortness Of Breath Aspirin 81 mg 07/09/23 09:00 07/10/23 08:20 Aspirin 81 Mg Tablet. PO 07/08/24 08:59 81 mg DAILY YESSENIA Administration Atorvastatin Calcium 40 mg 07/08/23 21:00 07/09/23 21:53 Atorvastatin 40 Mg Tablet PO 07/07/24 20:59 40 mg QPM YESSENIA Administration Bisacodyl 10 mg 07/08/23 18:10 Bisacodyl 10 Mg Supp.Rect RI 07/07/24 18:09 DAILY PRN Constipation Budesonide/Formoterol Fumarate 2 puff 07/08/23 21:00 07/10/23 05:46 Budesonide/Formoterol 80-4.5 Mcg 60 Puff/6.9 Gm Hfa.Aer.Ad INHALATION 07/07/24 20:59 2 puff BID YESSENIA Administration Buspirone HCl 10 mg 07/08/23 21:00 07/10/23 08:20 Buspirone 10 Mg Tablet PO 07/07/24 20:59 10 mg BID YESSENIA Administration Calcium Acetate 667 mg 07/09/23 08:00 07/10/23 12:03 Calcium Acetate 667 Mg Capsule PO 07/08/24 07:59 667 mg TID.WITH.MEALS YESSENIA Administration Citalopram Hydrobromide 20 mg 07/09/23 09:00 07/10/23 08:20 Citalopram 20 Mg Tablet PO 07/08/24 08:59 20 mg DAILY YESSENIA Administration Diclofenac Sodium 4 gm 07/08/23 22:00 07/10/23 14:02 Diclofenac Sodium 1% Gel 100 Gm Tube TOPICAL 07/07/24 21:59 Not Given QID YESSENIA Docusate Sodium 100 mg 07/08/23 18:10 Docusate 100 Mg Capsule PO 07/07/24 18:09 BID PRN Constipation Docusate Sodium 283 mg 07/08/23 18:10 Docusate Enema 283 Mg/5 Ml Enema RI 07/07/24 18:09 DAILY PRN Constipation Sodium Chloride 1,000 mls @ 0 mls/hr 07/09/23 09:05 07/09/23 15:12 0.9% Sodium Chloride 1,000 Ml MISCELLANE 07/08/24 09:04 Infused .Q0M PRN Infusion Dialysis As Directed Insulin Aspart 0 units 07/08/23 22:00 07/10/23 12:06 Insulin Aspart 300 Units/3 Ml Insuln.Pen SUBCUT 07/07/24 21:59 3 units TID.WM.HS YESSENIA Administration Protocol Ipratropium [place] 0.5 mg 07/09/23 08:00 07/10/23 10:13 Ipratropium [place] 0.5 Mg/2.5 Ml Vial.Neb INHALATION 07/08/24 07:59 0.5 mg QID.RESP YESSENIA Administration Lactulose 30 gm 07/08/23 18:10 Lactulose 20 Gm/30 Ml Udc PO 07/07/24 18:09 DAILY PRN Constipation Lidocaine 1 patch 07/08/23 21:00 07/10/23 08:21 Lidocaine 4% Adh..Patch TOPICAL 07/07/24 20:59 1 patch BID YESSENIA Administration Lubiprostone 8 mcg 07/08/23 21:00 07/10/23 08:20 Lubiprostone 8 Mcg Capsule PO 07/07/24 20:59 8 mcg BID YESSENIA Administration Metoprolol Tartrate 12.5 mg 07/09/23 09:00 07/10/23 08:20 Metoprolol Tartrate 12.5 Mg Tablet PO 07/08/24 08:59 12.5 mg DAILY YESSENIA Administration Mexiletine HCl 200 mg 07/08/23 22:00 07/10/23 14:01 Mexiletine 200 Mg Capsule PO 07/07/24 21:59 200 mg Q8HR YESSENIA Administration Midodrine 5 mg 07/09/23 07:00 07/10/23 12:04 Midodrine 5 Mg Tablet PO 07/08/24 06:59 5 mg TID.7A.12P.5P YESSENIA Administration Midodrine 5 mg 07/09/23 14:21 Midodrine 5 Mg Tablet PO 07/08/24 14:20 MoWeFr PRN Hypotension, sbp <90 Multivitamins 1 tab 07/09/23 09:00 07/10/23 08:20 Multivitamin 1 Tab Tablet PO 07/08/24 08:59 1 tab DAILY YESSENIA Administration Oxycodone/Acetaminophen 1 tab 07/08/23 18:09 07/10/23 12:03 Oxycodone/Acetaminophen 5-325 Mg Tablet PO 1 tab Q6HR PRN Administration pain Polyethylene Glycol 17 gm 07/08/23 21:00 07/10/23 08:21 Polyethylene Glycol 3350 17 Gm Powd.Pack PO 07/07/24 20:59 Not Given BID YESSENIA Pramipexole Dihydrochloride 0.5 mg 07/08/23 22:00 07/09/23 21:53 Pramipexole 0.5 Mg Tablet PO 07/07/24 21:59 0.5 mg HS YESSENIA Administration Pregabalin 50 mg 07/08/23 21:00 07/10/23 08:20 Pregabalin 50 Mg Capsule PO 01/04/24 20:59 50 mg BID YESSENIA Administration Sennosides 2 tab 07/09/23 12:00 Sennosides 8.6 Mg Tablet PO 07/08/24 11:59 DAILY@12 PRN If no BM in 2 days Sodium Chloride 0 ml 07/08/23 18:10 Sodium Chloride 0.9 % 10 Ml Syringe IV-PUSH 07/07/24 18:09 PRN PRN Flush Sodium Chloride 0 ml 07/09/23 09:05 07/09/23 14:06 Sodium Chloride 0.9 % 10 Ml Syringe IV-PUSH 07/08/24 09:04 10 ml PRN PRN Administration Flush Vitamin D 25 mcg 07/09/23 09:00 07/10/23 08:20 Cholecalciferol 25 Mcg (1,000 Units) Tablet PO 07/08/24 08:59 25 mcg DAILY YESSENIA Administration Assessment/Plan Assessment/Plan (1) Odontoid fracture with type II morphology: (2) Chronic hypotension: (3) Type 2 diabetes mellitus with diabetic chronic kidney disease: (4) Anemia of renal disease: (5) Secondary hyperparathyroidism: (6) CAD (coronary artery disease): Qualifiers: Associated angina: without angina Coronary Disease-Associated Artery/Lesion type: cheesh-na artery [place] vs. transplanted heart: cheesh-na heart Qualified Code(s): I25.10 - Atherosclerotic heart disease of cheesh-na coronary artery without angina pectoris (7) ESRD (end stage renal disease): (8) COPD (chronic obstructive pulmonary disease): (9) Impaired mobility and activities of daily living: (10) Cognitive communication deficit: (11) Oropharyngeal dysphagia: Plan Patient is a 78-year-old female with complex past medical history including CAD,DM, ESRD on dialysis who presents to acute inpatient rehabilitation unit with multifactorial functional impairments in the setting of C2 fracture s/p surgicalrepair. * Overall doing well today. Vitals stable. Patient noted to have soft BP over the past 2 days. Monitor. Hold parameters added for lopressor. Patient had PRN midodrine * Blood glucose elevated. Trend, adjust regimen if necessary. * Maintain c-collar as per neurosurgery recommendations. * Maintain current pain regimen. Patient education Pressure ulcer prophylaxis; encourage mobilization, frequent postural changes, pressure-relief techniques DVT prophylaxis Encourage deep breathing exercise incentive spirometry. Monitor bladder. Toileting schedule. Continue current bladder management, with scans as needed and CIC if needed. Start bowel care program every day to obtain continence, prevent ileus. Maintain fall precautions Gait and balance retraining Functional training and self-care and home management, including activities of daily living and instrumental activities of daily living Provision of the necessary gait aids and functional adaptive equipment to enhance the patient's a functional orthodoxy Ensure adequate nutrition and hydration Sleep she has Pain: Continue current regimen Discharge planning: Hopefully home with family in 10-14 days Patient was personally seen by me, Dr. Eli, on the day of encounter, reviewed the history and the relevant portions of the chart, including current orders, allied health and sustainability consultant notes, labs/imaging and performed chow elements of exam and I formulated the plan of care and facilitated the medical decision making. I completed a substantive portion of this encounter, the medical decision makingportion of this note in its entirety, including Allied health note review, nursing note review, sustainability consultant note review, discussion with nursing and case management, and more than 50% of my time was spent on counseling and coordination of care, time spent 29 minutes Documented By: Paul Eli MD [id number] Signed By: <Electronically signed by Paul Eli MD> 07/10/23 1424 [facility] Work Phone: [phone]) 497-262005-30-2024 Consult note Author Tatiana Loya [facility] July 10, 2023 8:11am Note Date/Time July 09, 2023 11:58 am [facility] [address] [place] [address] Hospitalist Consult Note Signed Patient: Cinthya Wilson MR#: [id number] : 1945 Acct:[id number] Age/Sex: 78 / F Adm Date: 4 Loc: Room: [address] [place] [address] Type: ADM IN Attending Dr: Quintin Johnson MD Copies to: MD Lily Duran II, MD Joseph Riley, MD Linda Obika, ROSTER CLERK~ HPI DATE OF CONSULTATION: 07/09/23 REQUESTING PROVIDER: Quintin Johnson Consult Narrative HPI: Ms. Wilson is a 78-year-old female with an extensive past medical history including and not limited to ESRD, type 2 diabetes, HTN CAD, s/p PCI ,Cardiac arrhythmias s/p AICD, diastolic heart failure COPD who presented to the emergency department after sustaining a fall while walking outside on postop day4 of pedicle screw fixation C1-C2 and lateral mass screws C3 with bilateral fusion C1-C3. Imaging in the ER demonstrated an odontoid fracture, neurosurgerywas consulted and she underwent fracture repair without complications. She was seen and evaluated by physical therapy and Occupational Therapy postoperatively and recommended acute inpatient rehabilitation. The hospitalist team has been consulted for medical management of type 2 diabetes, hypertension and other comorbidities. Patient seen and examined, resting comfortably in bed, on home oxygen of 2 L. Reports that she just got done with physical therapy, tolerated it well. Denies any pain at this time and she is wearing a hard neck collar. Denies chest pain or palpitation. No cough or pain with inspiration. No abdominal pain or indigestion, constipation or diarrhea, nausea or vomiting. Nodysuria or retention. No headache or dizziness. No fevers Review of Systems Review of Systems Review of systems: 10 point review of systems obtained, negative unless noted in the HPI below PMFSH Source: Old Records Reviewed Medical History Secondary hyperparathyroidism Anemia of renal disease Type 2 diabetes mellitus with diabetic chronic kidney disease Diabetes mellitus with insulin therapy Chronic hypoxemic respiratory failure ESRD (end stage renal disease) CAD (coronary artery disease) COPD (chronic obstructive pulmonary disease) Fall Carotid stenosis, bilateral End-stage renal disease (ESRD) Heart failure Missed dialysis Chronic combined systolic and diastolic CHF (congestive heart failure) Hyponatremia Pneumonia Polymyalgia Skin cancer mohs procedure for removal Neuropathy right thigh and feet Sleep apnea Irregular heart rhythm prior to stent placement per pt report Neck pain with history of cervical spinal surgery Cataract had bilateral PHACO Chronic back pain Arthritis Cervical spinal stenosis Anxiety Hyperlipidemia HTN (hypertension) [...] Family History Father Heart disease Cancer Mother Diabetes Cancer Brother Cancer Legacy FamHx Relation: Brother(s); Legacy FamHx Problem: Diagnosed with Cancer Social History Smoking Status: Never smoker Substance Use Type: None Social History Comments: adult son Meds Medications and Allergies Allergies lisinopril Allergy (Unknown, Verified 06/30/23 12:32) Cough gabapentin Allergy (Verified 06/30/23 12:32) Swelling of Lip/Tongue/Throat Home Medications atorvastatin 40 mg tablet 40 mg PO QPM 11/19/16 [History Confirmed 07/08/23] multivitamin 1 tab PO DAILY 09/07/19 [History Confirmed 07/08/23] aspirin 81 mg tablet,delayed release 81 mg PO DAILY 11/25/19 [History Confirmed 07/08/23] cholecalciferol (vitamin D3) 25 mcg (1,000 unit) tablet (Vitamin D3) 25 mcg PO DAILY 11/25/19 [History Confirmed 07/08/23] albuterol sulfate 0.63 mg/3 mL solution for nebulization 0.63 mg inhalation QID PRN SOB 06/26/21 [History Confirmed 07/08/23] docusate sodium 100 mg capsule 100 mg PO BID #60 caps 11/20/21 [Rx Confirmed 07/08/23] pen needle, diabetic 32 gauge x (BD Ultra-Fine Lexis Pen Needle) #100 ea 11/20/21 [Rx Confirmed 06/30/23] calcium acetate(phosphat bind) 667 mg capsule 667 mg PO TID.WITH.MEALS 60 days #240 caps 02/26/22 [Rx Confirmed 07/08/23] diclofenac sodium 1 % topical gel (Voltaren Arthritis Pain) 4 g topical QID #0 grams 10/31/22 [Rx Confirmed 07/08/23] furosemide 20 mg tablet 60 mg (3 x 20 mg) PO BID 30 days #180 tabs 10/31/22 [Rx Confirmed 07/08/23] fluticasone fur. 100 mcg-umeclid 62.5 mcg-vilant 25 mcg inhalat.powder (Trelegy Ellipta) 2 ea inhalation DAILY 12/06/22 [History Confirmed 07/08/23] pramipexole 0.5 mg tablet 0.5 mg PO HS 12/06/22 [History Confirmed 07/08/23] insulin lispro 100 unit/mL subcutaneous pen (Humalog KwikPen (U-100) Insulin) 1 sliding scale dose subcut ACHS 12/29/22 [History Confirmed 07/08/23] acetaminophen 650 mg tablet,extended release (Arthritis Pain Reliever) 650 mg POQ12H PRN pain 03/05/23 [History Confirmed 07/08/23] buspirone 10 mg tablet 10 mg PO BID 03/05/23 [History Confirmed 07/08/23] metoprolol tartrate 25 mg tablet 12.5 mg PO DAILY 03/05/23 [History Confirmed 07/08/23] mexiletine 200 mg capsule 200 mg PO Q8HR 30 days #90 caps 03/07/23 [Rx Confirmed 07/08/23] pregabalin 50 mg capsule (Lyrica) 50 mg PO BID 04/01/23 [History Confirmed 07/08/23] lidocaine 4 % topical patch (Lidocaine Pain Relief) 1 patch topical BID 06/30/23[History Confirmed 07/08/23] lubiprostone 8 mcg capsule (Amitiza) 8 mcg PO BID 06/30/23 [History Confirmed 07/08/23] midodrine 5 mg tablet 5 mg PO DAILY PRN low bp 06/30/23 [History Confirmed 07/08/23] polyethylene glycol 3350 17 gram/dose oral powder (ClearLax) 17 g PO BID 06/30/23 [History Confirmed 07/08/23] tizanidine 4 mg capsule (Zanaflex) 4 mg PO QHS 06/30/23 [History Confirmed 07/08/23] citalopram 20 mg tablet 20 mg PO DAILY #30 tabs 07/08/23 [Rx Confirmed 07/08/23] midodrine 5 mg tablet 5 mg PO TID.7A.12P.5P 30 days #90 tabs 07/08/23 [Rx Confirmed 07/08/23] oxycodone-acetaminophen 5 mg-325 mg tablet (Percocet) 1 tab PO Q6HR PRN pain 07/08/23 [History Confirmed 07/08/23] Active Medications: Active Medications Generic Name Dose Route Start Last Admin Trade Name Freq PRN Reason Stop Dose Admin Acetaminophen 500 mg 07/08/23 18:10 Acetaminophen 500 Mg Tablet PO 07/07/24 18:09 Q4H PRN Pain Al Hydrox/Mg Hydrox/Simethicone 30 ml 07/08/23 18:10 Mag Hydrox/Al Hydrox/Simeth 30 Ml Udc PO 07/07/24 18:09 Q4H PRN Indigestion Albuterol 0.63 mg 07/08/23 19:03 Albuterol Neb 2.5 Mg/3 Ml Vial.Neb INHALATION 07/07/24 19:02 QID PRN Shortness Of Breath Aspirin 81 mg 07/09/23 09:00 07/09/23 08:26 Aspirin 81 Mg Tablet.Dr PO 07/08/24 08:59 81 mg DAILY YESSENIA Administration Atorvastatin Calcium 40 mg 07/08/23 21:00 07/08/23 22:05 Atorvastatin 40 Mg Tablet PO 07/07/24 20:59 40 mg QPM YESSENIA Administration Bisacodyl 10 mg 07/08/23 18:10 Bisacodyl 10 Mg Supp.Rect RI 07/07/24 18:09 DAILY PRN Constipation Budesonide/Formoterol Fumarate 2 puff 07/08/23 21:00 07/09/23 05:19 Budesonide/Formoterol 80-4.5 Mcg 60 Puff/6.9 Gm Hfa.Aer.Ad INHALATION 07/07/24 20:59 2 puff BID YESSENIA Administration Buspirone HCl 10 mg 07/08/23 21:00 07/09/23 08:26 Buspirone 10 Mg Tablet PO 07/07/24 20:59 10 mg BID YESSENIA Administration Calcium Acetate 667 mg 07/09/23 08:00 07/09/23 08:26 Calcium Acetate 667 Mg Capsule PO 07/08/24 07:59 667 mg TID.WITH.MEALS YESSENIA Administration Citalopram Hydrobromide 20 mg 07/09/23 09:00 07/09/23 08:28 Citalopram 20 Mg Tablet PO 07/08/24 08:59 20 mg DAILY YESSENIA Administration Diclofenac Sodium 4 gm 07/08/23 22:00 07/09/23 08:29 Diclofenac Sodium 1% Gel 100 Gm Tube TOPICAL 07/07/24 21:59 4 gm QID YESSENIA Administration Docusate Sodium 100 mg 07/08/23 18:10 Docusate 100 Mg Capsule PO 07/07/24 18:09 BID PRN Constipation Docusate Sodium 283 mg 07/08/23 18:10 Docusate Enema 283 Mg/5 Ml Enema RI 07/07/24 18:09 DAILY PRN Constipation Sodium Chloride 1,000 mls @ 0 mls/hr 07/09/23 09:05 0.9% Sodium Chloride 1,000 Ml MISCELLANE 07/08/24 09:04 .Q0M PRN Dialysis As Directed Insulin Aspart 0 units 07/08/23 22:00 07/09/23 08:28 Insulin Aspart 300 Units/3 Ml Insuln.Pen SUBCUT 07/07/24 21:59 3 units TID.WM.HS YESSENIA Administration Protocol Ipratropium [place] 0.5 mg 07/09/23 08:00 07/09/23 05:19 Ipratropium [place] 0.5 Mg/2.5 Ml Vial.Neb INHALATION 07/08/24 07:59 0.5 mg QID.RESP YESSENIA Administration Lactulose 30 gm 07/08/23 18:10 Lactulose 20 Gm/30 Ml Udc PO 07/07/24 18:09 DAILY PRN Constipation Lidocaine 1 patch 07/08/23 21:00 07/09/23 08:27 Lidocaine 4% Adh..Patch TOPICAL 07/07/24 20:59 1 patch BID YESSENIA Administration Lubiprostone 8 mcg 07/08/23 21:00 07/09/23 08:26 Lubiprostone 8 Mcg Capsule PO 07/07/24 20:59 8 mcg BID YESSENIA Administration Metoprolol Tartrate 12.5 mg 07/09/23 09:00 07/09/23 08:27 Metoprolol Tartrate 12.5 Mg Tablet PO 07/08/24 08:59 12.5 mg DAILY YESSENIA Administration Mexiletine HCl 200 mg 07/08/23 22:00 07/09/23 06:15 Mexiletine 200 Mg Capsule PO 07/07/24 21:59 200 mg Q8HR YESSENIA Administration Midodrine 5 mg 07/09/23 07:00 07/09/23 06:14 Midodrine 5 Mg Tablet PO 07/08/24 06:59 Not Given TID.7A.12P.5P YESSENIA Multivitamins 1 tab 07/09/23 09:00 07/09/23 08:26 Multivitamin 1 Tab Tablet PO 07/08/24 08:59 1 tab DAILY YESSENIA Administration Oxycodone/Acetaminophen 1 tab 07/08/23 18:09 07/09/23 08:27 Oxycodone/Acetaminophen 5-325 Mg Tablet PO 1 tab Q6HR PRN Administration pain Polyethylene Glycol 17 gm 07/08/23 21:00 07/09/23 08:31 Polyethylene Glycol 3350 17 Gm Powd.Pack PO 07/07/24 20:59 Not Given BID YESSENIA Pramipexole Dihydrochloride 0.5 mg 07/08/23 22:00 07/08/23 22:06 Pramipexole 0.5 Mg Tablet PO 07/07/24 21:59 0.5 mg HS YESSENIA Administration Pregabalin 50 mg 07/08/23 21:00 07/09/23 08:26 Pregabalin 50 Mg Capsule PO 01/04/24 20:59 50 mg BID YESSENIA Administration Sennosides 2 tab 07/09/23 12:00 Sennosides 8.6 Mg Tablet PO 07/08/24 11:59 DAILY@12 PRN If no BM in 2 days Sodium Chloride 0 ml 07/08/23 18:10 Sodium Chloride 0.9 % 10 Ml Syringe IV-PUSH 07/07/24 18:09 PRN PRN Flush Sodium Chloride 0 ml 07/09/23 09:05 Sodium Chloride 0.9 % 10 Ml Syringe IV-PUSH 07/08/24 09:04 PRN PRN Flush Vitamin D 25 mcg 07/09/23 09:00 07/09/23 08:26 Cholecalciferol 25 Mcg (1,000 Units) Tablet PO 07/08/24 08:59 25 mcg DAILY YESSENIA Administration Exam Physical Exam Vital Signs: Temp Pulse Resp BP Pulse Ox O2 Del Method O2 Flow Rate 98.6 F 78 20 159/69 H 99 Room Air 2 07/09/23 06:00 07/09/23 06:00 07/09/23 06:00 07/09/23 06:00 07/09/23 06:00 07/09/23 08:00 07/09/23 07:30 Narrative: CONST-frail appearing, alert awake resting comfortably in bed HEAD - Normocephalic and atraumatic EENT-Sclera nonicteric and conjunctive are nonerythemic, moist oral mucosa, pharynx clear NECK-Supple, no cervical lymphadenopathy CARDIAC-normal rate, regular rhythm, normal S1 & S2. PULM-diminished without wheeze or rhonchi, RA, no accessory muscle use or cough noted ABD - Soft. Bowel sounds are normal. No distention No tenderness EXTREM-no edema BLE calves nontender SKIN-fragile, intact MS- MAEX4 spontaneously with equal with equal strength NEURO- A&Ox3 speech clear and tongue midline, equal facial symmetry no focal motor deficits PSYCH-Mood, affect and behavior appropriate Results - Hospitalist Consult Lab Results Labs: Laboratory Results - last 72 hr 07/09/23 11:14: POC Glucose 282 07/09/23 07:10: POC Glucose 169 07/09/23 05:33: Corrected WBC 10.1, Uncorrected WBC Count 10.1, RBC 3.58 L, Hgb 10.4 L, Hct 32.8 L, MCV 91.6, MCH 29.1, MCHC 31.8 L, RDW 17.4 H, Plt Count 239, MPV 8.4, Neut % (Auto) 72.2, Lymph % (Auto) 15.7, Bandera % (Auto) 9.4, Eos % (Auto) 2.4, Baso % (Auto) 0.3, Nucleat RBC Rel Count 0.0, Neut # (Auto) 7.3, Lymph # (Auto) 1.6, Bandera # (Auto) 0.9 H, Eos # (Auto) 0.2, Baso # (Auto) 0.0, PHA Creatinine Clear 11.09, Sodium 137, Potassium 4.2, Chloride 95 L, Carbon Dioxide 29.1, Anion Gap 17.1 H, BUN 45 H, Creatinine 4.05 H D, Est GFR (CKD-EPI)10.899, Glucose 186 H, Calcium 8.7, Total Bilirubin 0.3, AST 19, ALT 3 L, Alkaline Phosphatase 155 H, Total Protein 5.5 L, Albumin 3.0 L, Globulin 2.5, Albumin/Globulin Ratio 1.2, Prealbumin 20.4 07/08/23 20:51: POC Glucose 214 Assessment & Plan Assessment/Plan (1) Odontoid fracture with type II morphology: (2) Impaired mobility and activities of daily living: (3) Chronic hypotension: (4) Type 2 diabetes mellitus with diabetic chronic kidney disease: (5) Anemia of renal disease: (6) ESRD (end stage renal disease): Plan Close odontoid fracture secondary to mechanical fall S/p C2 fracture with C2-3/3-4 instability 07/04 S/p Posterior Cervical Decompression with C1-5 Fixation Impaired mobility and activities of daily living * Plan of care for rehabilitation, PT/OT, DVT prophylaxis, bowel regimen per PM&R team Chronic conditions: 1. Diastolic heart failure/hypotension?on metoprolol, midodrine, slightly elevated, mostly controlled. Will continue to monitor without any adjustment 2. Type 2 diabetes?on SSI, blood sugars slightly elevated, will check A1c and plan to start long-acting insulin 3. COPD?on albuterol and budesonide/formoterol, home oxygen of 2 L 4. ESRD/diabetic neuropathy/anemia of chronic disease?Nephrology following, adequate iron stores, erythropoietin will be started if Hgb <9 per nephrology 5. History of CAD s/p PCI and cardiac arrhythmias s/p AICD Documented By: Edie Ferrera APRN 07/09/23 1146 Signed By: <Electronically signed by NELI Ferrera> 07/09/23 1216 <Electronically signed by Tatiana Loya MD> 07/10/23 0811 [facility] Work Phone: [phone] Progress note Author Narinder Toussaint [facility] July 09, 2023 2:28pm Note Date/Time July 09, 2023 2:28p [facility] [address] [place] [address] Nephrology Progress Note Signed Patient: Cinthya Wilson MR#: [id number] : 1945 Acct:[id number] Age/Sex: 78 / F Adm Date: 4 Loc: Room: [address] [place] [address] Type: ADM IN Attending Dr: Quintin Johnson MD Copies to: ~ Date of Service: 07/09/2023 Subjective Subjective Narrative: This is a 78-year-old female well-known to our service from dialysis unit who isbeing seen in the rehab for management of ESRD and dialysis. 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 Her other comorbidities are CAD s/p PCI, COPD, chronic hypoxic diastolic failure, cardiac arrhythmia s/p AICD and dyslipidemia. She was admitted to [facility] through ER after fall and she was found to have new fracture at the base of the odontoid. There is no intracranial bleeding. Patient underwent surgery on 07/04/2023 and subsequently was moved up to the rehab. Interval history She is sitting up in the chair with the collar. She feels comfortable with no shortness of breath. No nausea or vomiting. She is able to eat and drink. She is due for hemodialysis today. No shortness of breath or chest pain. Bloodpressure is borderline low on midodrine. Patient did well with recreational therapy this morning. Exam Physical Exam Vital Signs: Temp Pulse Resp BP Pulse Ox O2 Del Method O2 Flow Rate 36.7 C 62 18 92/49 L 98 Room Air 2 07/09/23 12:41 07/09/23 13:59 07/09/23 12:41 07/09/23 13:59 07/09/23 12:41 07/09/23 08:00 07/09/23 12:41 Narrative: Constitutional: awake with no respiratory distress on room air. HEENT: She has mild pallor. Mucous membranes are moist. Neck: She has a neck collar s/p pedicle screw fixation C1-C2 Cardiovascular: RRR, normal S1-S2, no gallop or rub, No JVD Respiratory: Diminished breath sounds. No crackles or wheezes. Gastrointestinal: Soft, non tender, positive bowel sounds. No palpable organs or masses Extremities: trace edema Skin: No rashes or bruises Neurology: Awake, alert, oriented ?3, No focal motor or sensory deficits. Psych: Normal mood and affect Vascular access: Left arm AV fistula with good thrill. Objective Intake and Output I&O: Intake & Output 07/06/23 07/07/23 07/08/23 07/09/23 23:59 23:59 23:59 23:59 Intake Total 0 / 0 840 / 840 Balance 0 / 0 840 / 840 Weight 66.6 kg 65.941 kg Meds and Allergies Meds: Active Medications Acetaminophen (Acetaminophen 500 Mg Tablet) 500 mg PO Q4H PRN PRN Reason: Pain Stop: 07/07/24 18:09 Al Hydrox/Mg Hydrox/Simethicone (Mag Hydrox/Al Hydrox/Simeth 30 Ml Udc) 30 ml PO Q4H PRN PRN Reason: Indigestion Stop: 07/07/24 18:09 Albuterol (Albuterol Neb 2.5 Mg/3 Ml Vial.Neb) 0.63 mg INHALATION QID PRN PRN Reason: Shortness Of Breath Stop: 07/07/24 19:02 Aspirin (Aspirin 81 Mg Tablet.Dr) 81 mg PO DAILY YESSENIA Stop: 07/08/24 08:59 Last Admin: 07/09/23 08:26 Dose: 81 mg Atorvastatin Calcium (Atorvastatin 40 Mg Tablet) 40 mg PO QPM YESSENIA Stop: 07/07/24 20:59 Last Admin: 07/08/23 22:05 Dose: 40 mg Bisacodyl (Bisacodyl 10 Mg Supp.Rect) 10 mg RI DAILY PRN PRN Reason: Constipation Stop: 07/07/24 18:09 Budesonide/Formoterol Fumarate (Budesonide/Formoterol 80-4.5 Mcg 60 Puff/6.9 Gm Hfa.Aer.Ad) 2 puff INHALATION BID YESSENIA Stop: 07/07/24 20:59 Last Admin: 07/09/23 05:19 Dose: 2 puff Buspirone HCl (Buspirone 10 Mg Tablet) 10 mg PO BID YESSENIA Stop: 07/07/24 20:59 Last Admin: 07/09/23 08:26 Dose: 10 mg Calcium Acetate (Calcium Acetate 667 Mg Capsule) 667 mg PO TID.WITH.MEALS YESSENIA Stop: 07/08/24 07:59 Last Admin: 07/09/23 12:00 Dose: 667 mg Citalopram Hydrobromide (Citalopram 20 Mg Tablet) 20 mg PO DAILY YESSENIA Stop: 07/08/24 08:59 Last Admin: 07/09/23 08:28 Dose: 20 mg Diclofenac Sodium (Diclofenac Sodium 1% Gel 100 Gm Tube) 4 gm TOPICAL QID YESSENIA Stop: 07/07/24 21:59 Last Admin: 07/09/23 08:29 Dose: 4 gm Docusate Sodium (Docusate 100 Mg Capsule) 100 mg PO BID PRN PRN Reason: Constipation Stop: 07/07/24 18:09 Docusate Sodium (Docusate Enema 283 Mg/5 Ml Enema) 283 mg RI DAILY PRN PRN Reason: Constipation Stop: 07/07/24 18:09 Sodium Chloride (0.9% Sodium Chloride 1,000 Ml) 1,000 mls @ 0 mls/hr MISCELLANE.Q0M PRN PRN Reason: Dialysis Stop: 07/08/24 09:04 Last Infusion: 07/09/23 14:07 Dose: Infused Insulin Aspart (Insulin Aspart 300 Units/3 Ml Insuln.Pen) 0 units SUBCUT TID.WM.[facility]; Protocol Stop: 07/07/24 21:59 Last Admin: 07/09/23 12:01 Dose: 7 units Ipratropium [place] (Ipratropium [place] 0.5 Mg/2.5 Ml Vial.Neb) 0.5 mg INHALATION QID.RESP YESSENIA Stop: 07/08/24 07:59 Last Admin: 07/09/23 14:08 Dose: Not Given Lactulose (Lactulose 20 Gm/30 Ml Udc) 30 gm PO DAILY PRN PRN Reason: Constipation Stop: 07/07/24 18:09 Lidocaine (Lidocaine 4% Adh..Patch) 1 patch TOPICAL BID [facility] Stop: 07/07/24 20:59 Last Admin: 07/09/23 08:27 Dose: 1 patch Lubiprostone (Lubiprostone 8 Mcg Capsule) 8 mcg PO BID [facility] Stop: 07/07/24 20:59 Last Admin: 07/09/23 08:26 Dose: 8 mcg Metoprolol Tartrate (Metoprolol Tartrate 12.5 Mg Tablet) 12.5 mg PO DAILY [facility] Stop: 07/08/24 08:59 Last Admin: 07/09/23 08:27 Dose: 12.5 mg Mexiletine HCl (Mexiletine 200 Mg Capsule) 200 mg PO Q8HR [facility] Stop: 07/07/24 21:59 Last Admin: 07/09/23 06:15 Dose: 200 mg Midodrine (Midodrine 5 Mg Tablet) 5 mg PO TID.7A.12P.5P [facility] Stop: 07/08/24 06:59 Last Admin: 07/09/23 12:00 Dose: 5 mg Midodrine (Midodrine 5 Mg Tablet) 5 mg PO PRN PRN PRN Reason: Hypotension Stop: 07/08/24 14:20 Multivitamins (Multivitamin 1 Tab Tablet) 1 tab PO DAILY [facility] Stop: 07/08/24 08:59 Last Admin: 07/09/23 08:26 Dose: 1 tab Oxycodone/Acetaminophen (Oxycodone/Acetaminophen 5-325 Mg Tablet) 1 tab PO [id number] PRN Reason: pain Last Admin: 07/09/23 14:02 Dose: 1 tab Polyethylene Glycol (Polyethylene Glycol 3350 17 Gm Powd.Pack) 17 gm PO BID YESSENIA Stop: 07/07/24 20:59 Last Admin: 07/09/23 08:31 Dose: Not Given Pramipexole Dihydrochloride (Pramipexole 0.5 Mg Tablet) 0.5 mg PO HS YESSENIA Stop: 07/07/24 21:59 Last Admin: 07/08/23 22:06 Dose: 0.5 mg Pregabalin (Pregabalin 50 Mg Capsule) 50 mg PO BID YESSENIA Stop: 01/04/24 20:59 Last Admin: 07/09/23 08:26 Dose: 50 mg Sennosides (Sennosides 8.6 Mg Tablet) 2 tab PO DAILY@12 PRN PRN Reason: If no BM in 2 days Stop: 07/08/24 11:59 Sodium Chloride (Sodium Chloride 0.9 % 10 Ml Syringe) 0 ml IV-PUSH PRN PRN PRN Reason: Flush Stop: 07/07/24 18:09 Sodium Chloride (Sodium Chloride 0.9 % 10 Ml Syringe) 0 ml IV-PUSH PRN PRN PRN Reason: Flush Stop: 07/08/24 09:04 Last Admin: 07/09/23 14:06 Dose: 10 ml Vitamin D (Cholecalciferol 25 Mcg (1,000 Units) Tablet) 25 mcg PO DAILY YESSENIA Stop: 07/08/24 08:59 Last Admin: 07/09/23 08:26 Dose: 25 mcg Allergies lisinopril Allergy (Unknown, Verified 06/30/23 12:32) Cough gabapentin Allergy (Verified 06/30/23 12:32) Swelling of Lip/Tongue/Throat Results - Nephrology Labs 07/09/23 05:33 07/09/23 05:33 Labs: 07/09/23 05:33 BUN 45 H Creatinine 4.05 H D Albumin 3.0 L Radiology Impressions Impressions - last 24 hours: Any impression(s) listed above is documentation that was entered by the reading physician into a diagnostic report(s) for Cinthya Wlison. I have reviewed the report(s) and am incorporating any findings in the treatment plan of this patient where applicable. 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 She currently goes to the [facility] dialysis unit on MWF schedule. (2) Odontoid fracture: Assessment/Problem Details: Patient presents after a fall and was found to have odontoid fracture. She underwent the surgery on 07/04/2023. (3) Type 2 diabetes mellitus with diabetic chronic kidney disease: Assessment/Problem Details: She has insulin-dependent type 2 diabetes mellitus. (4) Secondary hyperparathyroidism: Assessment/Problem Details: She has secondary hyperparathyroidism due to the ESRD and hyperphosphatemia. She currently takes calcium acetate at home. 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 She takes midodrine for intradialytic hypotension. Plan * Hemodialysis today for 210 minutes, 2K bath. Patient has hypertension on midodrine, she was reported to be 5 kg above estimated dry weight which seems to be inaccurate. Will weigh the patient again on dialysis with possible ultrafiltration 1 to 2 L as tolerated. Will add midodrine 5 mg as needed for systolic blood pressure below 90s. * Patient gets hemodialysis with no heparin since she just had surgery on 07/03 * Hemoglobin is within the goal. She has adequate iron stores. Erythropoietin will be started if hemoglobin drops below 9.5 per * Continue DM management as per the primary hospitalist team. * Continue midodrine for intradialytic hypotension. * Continue home dose of the calcium acetate. * Monitor CBC and renal panel 2-3 times a week before dialysis to adjust medications and dialysis prescription as indicated. Documented By: Narinder Toussaint MD 07/09/23 142 Signed By: <Electronically signed by MD Narinder Toussaint> 07/09/23 1428 [facility] Work Phone: [phone] 136-407705-29-2024 History and physical note Author Quintin Johnson [facility] July 09, 2023 1:20pm Note Date/Time July 09, 2023 9:03a m [facility] [address] [place] [address] Physiatry (Rehab) H&P Signed Patient: Cinthya Wilson MR#: [id number] : 1945 Acct:[id number] Age/Sex: 78 / F Adm Date: 4 Loc: 5T Room: 2O4842-0 Type: ADM IN Attending Dr: Quintin Johnson MD Copies to: MD Larissa Bourgeois II, APRN Joseph Riley, MD~ Date of Service: 07/09/2023 HPI The patient was seen and examined on: 07/09/23 Etiologic Diagnosis/Impairment Group: 08.9 Chief complaint: Pain, limited function History of Present Illness: Ms. Wilson is a 78 year old female with multiple comorbidities including type IIDM, ESRD on hemodialysis Friday/Friday?Friday, COPD, CHF who presents to acute inpatient rehabilitation unit with functional impairments in the setting of C2 and L1 fractures s/p C1?C3 fixation. Patient reports sustaining a fall after her walker wheel got stuck in a sidewalkcrevice. She fell backwards again the back of her head. No loss of consciousness. She was able to get herself up. Patient did not seek medical care right away and continued to go about her daily activities for several more days. She started developing upper and lower extremity weakness as well as blurry vision and a headache, which prompted her to seek care. Upon ER evaluation she was found to have an odontoid fracture. Neurosurgery was consulted and recommended an operative intervention. Patient received cardiology clearance prior to procedure due to extensive cardiac history. ICD interrogation demonstrated no significant abnormalities. Nephrology was also consulted for dialysis management. On 07/05/2023 Dr. Weiss performed posterior cervical fusion with C1, C2, C3 fixation without major complications. Patient is to wear c-collar postoperatively. She was evaluated by PT/OT and recommended acute rehab for strengthening. On my examination patient is alert, oriented, pleasant and cooperative. Right neck pain 4-5/10, reports no radiation. Bilateral upper extremity weakness persists, she denies any paresthesias at this time. No visual difficulties. Complains of mild headache. She has a large hematoma to the back of her head. Otherwise patient has no major complaints at this time. Baseline she is mostly independent. Lives with son who is able to assist if needed. Typically uses rollator for ambulation purposes. [facility] Medical History Secondary hyperparathyroidism Anemia of renal disease Type 2 diabetes mellitus with diabetic chronic kidney disease Diabetes mellitus with insulin therapy Chronic hypoxemic respiratory failure ESRD (end stage renal disease) CAD (coronary artery disease) COPD (chronic obstructive pulmonary disease) Fall Carotid stenosis, bilateral End-stage renal disease (ESRD) Heart failure Missed dialysis Chronic combined systolic and diastolic CHF (congestive heart failure) Hyponatremia Pneumonia Polymyalgia Skin cancer mohs procedure for removal Neuropathy right thigh and feet Sleep apnea Irregular heart rhythm prior to stent placement per pt report Neck pain with history of cervical spinal surgery Cataract had bilateral PHACO Chronic back pain Arthritis Cervical spinal stenosis Anxiety Hyperlipidemia HTN (hypertension) [...] Family History Father Heart disease Cancer Mother Diabetes Cancer Brother Cancer Legacy FamHx Relation: Brother(s); Legacy FamHx Problem: Diagnosed with Cancer Social History Smoking Status: Never smoker Substance Use Type: None Social History Comments: adult son Review of Systems Review of Systems All other systems reviewed & are negative unless noted below or in HPI Meds Medications and Allergies Allergies lisinopril Allergy (Unknown, Verified 06/30/23 12:32) Cough gabapentin Allergy (Verified 06/30/23 12:32) Swelling of Lip/Tongue/Throat Home and Active Meds: Home Medications atorvastatin 40 mg tablet 40 mg PO QPM 11/19/16 [History Confirmed 07/08/23] multivitamin 1 tab PO DAILY 09/07/19 [History Confirmed 07/08/23] aspirin 81 mg tablet,delayed release 81 mg PO DAILY 11/25/19 [History Confirmed 07/08/23] cholecalciferol (vitamin D3) 25 mcg (1,000 unit) tablet (Vitamin D3) 25 mcg PO DAILY 11/25/19 [History Confirmed 07/08/23] albuterol sulfate 0.63 mg/3 mL solution for nebulization 0.63 mg inhalation QID PRN SOB 06/26/21 [History Confirmed 07/08/23] docusate sodium 100 mg capsule 100 mg PO BID #60 caps 11/20/21 [Rx Confirmed 07/08/23] pen needle, diabetic 32 gauge x (BD Ultra-Fine Lexis Pen Needle) #100 ea 11/20/21 [Rx Confirmed 06/30/23] calcium acetate(phosphat bind) 667 mg capsule 667 mg PO TID.WITH.MEALS 60 days #240 caps 02/26/22 [Rx Confirmed 07/08/23] diclofenac sodium 1 % topical gel (Voltaren Arthritis Pain) 4 g topical QID #0 grams 10/31/22 [Rx Confirmed 07/08/23] furosemide 20 mg tablet 60 mg (3 x 20 mg) PO BID 30 days #180 tabs 10/31/22 [Rx Confirmed 07/08/23] fluticasone fur. 100 mcg-umeclid 62.5 mcg-vilant 25 mcg inhalat.powder (Trelegy Ellipta) 2 ea inhalation DAILY 12/06/22 [History Confirmed 07/08/23] pramipexole 0.5 mg tablet 0.5 mg PO HS 12/06/22 [History Confirmed 07/08/23] insulin lispro 100 unit/mL subcutaneous pen (Humalog KwikPen (U-100) Insulin) 1 sliding scale dose subcut ACHS 12/29/22 [History Confirmed 07/08/23] acetaminophen 650 mg tablet,extended release (Arthritis Pain Reliever) 650 mg POQ12H PRN pain 03/05/23 [History Confirmed 07/08/23] buspirone 10 mg tablet 10 mg PO BID 03/05/23 [History Confirmed 07/08/23] metoprolol tartrate 25 mg tablet 12.5 mg PO DAILY 03/05/23 [History Confirmed 07/08/23] mexiletine 200 mg capsule 200 mg PO Q8HR 30 days #90 caps 03/07/23 [Rx Confirmed 07/08/23] pregabalin 50 mg capsule (Lyrica) 50 mg PO BID 04/01/23 [History Confirmed 07/08/23] lidocaine 4 % topical patch (Lidocaine Pain Relief) 1 patch topical BID 06/30/23[History Confirmed 07/08/23] lubiprostone 8 mcg capsule (Amitiza) 8 mcg PO BID 06/30/23 [History Confirmed 07/08/23] midodrine 5 mg tablet 5 mg PO DAILY PRN low bp 06/30/23 [History Confirmed 07/08/23] polyethylene glycol 3350 17 gram/dose oral powder (ClearLax) 17 g PO BID 06/30/23 [History Confirmed 07/08/23] tizanidine 4 mg capsule (Zanaflex) 4 mg PO QHS 06/30/23 [History Confirmed 07/08/23] citalopram 20 mg tablet 20 mg PO DAILY #30 tabs 07/08/23 [Rx Confirmed 07/08/23] midodrine 5 mg tablet 5 mg PO TID.7A.12P.5P 30 days #90 tabs 07/08/23 [Rx Confirmed 07/08/23] oxycodone-acetaminophen 5 mg-325 mg tablet (Percocet) 1 tab PO Q6HR PRN pain 07/08/23 [History Confirmed 07/08/23] Active Medications Acetaminophen (Acetaminophen 500 Mg Tablet) 500 mg PO Q4H PRN PRN Reason: Pain Stop: 07/07/24 18:09 Al Hydrox/Mg Hydrox/Simethicone (Mag Hydrox/Al Hydrox/Simeth 30 Ml Udc) 30 ml PO Q4H PRN PRN Reason: Indigestion Stop: 07/07/24 18:09 Albuterol (Albuterol Neb 2.5 Mg/3 Ml Vial.Neb) 0.63 mg INHALATION QID PRN PRN Reason: Shortness Of Breath Stop: 07/07/24 19:02 Aspirin (Aspirin 81 Mg Tablet.) 81 mg PO DAILY [facility] Stop: 07/08/24 08:59 Last Admin: 07/09/23 08:26 Dose: 81 mg Atorvastatin Calcium (Atorvastatin 40 Mg Tablet) 40 mg PO QPM [facility] Stop: 07/07/24 20:59 Last Admin: 07/08/23 22:05 Dose: 40 mg Bisacodyl (Bisacodyl 10 Mg Supp.Rect) 10 mg RI DAILY PRN PRN Reason: Constipation Stop: 07/07/24 18:09 Budesonide/Formoterol Fumarate (Budesonide/Formoterol 80-4.5 Mcg 60 Puff/6.9 Gm Hfa.Aer.Ad) 2 puff INHALATION BID [facility] Stop: 07/07/24 20:59 Last Admin: 07/09/23 05:19 Dose: 2 puff Buspirone HCl (Buspirone 10 Mg Tablet) 10 mg PO BID [facility] Stop: 07/07/24 20:59 Last Admin: 07/09/23 08:26 Dose: 10 mg Calcium Acetate (Calcium Acetate 667 Mg Capsule) 667 mg PO TID.WITH.MEALS [facility] Stop: 07/08/24 07:59 Last Admin: 07/09/23 08:26 Dose: 667 mg Citalopram Hydrobromide (Citalopram 20 Mg Tablet) 20 mg PO DAILY [facility] Stop: 07/08/24 08:59 Last Admin: 07/09/23 08:28 Dose: 20 mg Diclofenac Sodium (Diclofenac Sodium 1% Gel 100 Gm Tube) 4 gm TOPICAL QID [facility] Stop: 07/07/24 21:59 Last Admin: 07/09/23 08:29 Dose: 4 gm Docusate Sodium (Docusate 100 Mg Capsule) 100 mg PO BID PRN PRN Reason: Constipation Stop: 07/07/24 18:09 Docusate Sodium (Docusate Enema 283 Mg/5 Ml Enema) 283 mg RI DAILY PRN PRN Reason: Constipation Stop: 07/07/24 18:09 Insulin Aspart (Insulin Aspart 300 Units/3 Ml Insuln.Pen) 0 units SUBCUT TID.WM.HS [facility]; Protocol Stop: 07/07/24 21:59 Last Admin: 07/09/23 08:28 Dose: 3 units Ipratropium [place] (Ipratropium [place] 0.5 Mg/2.5 Ml Vial.Neb) 0.5 mg INHALATION QID.RESP YESSENIA Stop: 07/08/24 07:59 Last Admin: 07/09/23 05:19 Dose: 0.5 mg Lactulose (Lactulose 20 Gm/30 Ml Udc) 30 gm PO DAILY PRN PRN Reason: Constipation Stop: 07/07/24 18:09 Lidocaine (Lidocaine 4% Adh..Patch) 1 patch TOPICAL BID [facility] Stop: 07/07/24 20:59 Last Admin: 07/09/23 08:27 Dose: 1 patch Lubiprostone (Lubiprostone 8 Mcg Capsule) 8 mcg PO BID [facility] Stop: 07/07/24 20:59 Last Admin: 07/09/23 08:26 Dose: 8 mcg Metoprolol Tartrate (Metoprolol Tartrate 12.5 Mg Tablet) 12.5 mg PO DAILY YESSENIA Stop: 07/08/24 08:59 Last Admin: 07/09/23 08:27 Dose: 12.5 mg Mexiletine HCl (Mexiletine 200 Mg Capsule) 200 mg PO Q8HR YESSENIA Stop: 07/07/24 21:59 Last Admin: 07/09/23 06:15 Dose: 200 mg Midodrine (Midodrine 5 Mg Tablet) 5 mg PO TID.7A.12P.5P YESSENIA Stop: 07/08/24 06:59 Last Admin: 07/09/23 06:14 Dose: Not Given Multivitamins (Multivitamin 1 Tab Tablet) 1 tab PO DAILY YESSENIA Stop: 07/08/24 08:59 Last Admin: 07/09/23 08:26 Dose: 1 tab Oxycodone/Acetaminophen (Oxycodone/Acetaminophen 5-325 Mg Tablet) 1 tab PO [id number] PRN Reason: pain Last Admin: 07/09/23 08:27 Dose: 1 tab Polyethylene Glycol (Polyethylene Glycol 3350 17 Gm Powd.Pack) 17 gm PO BID YESSENIA Stop: 07/07/24 20:59 Last Admin: 07/09/23 08:31 Dose: Not Given Pramipexole Dihydrochloride (Pramipexole 0.5 Mg Tablet) 0.5 mg PO HS YESSENIA Stop: 07/07/24 21:59 Last Admin: 07/08/23 22:06 Dose: 0.5 mg Pregabalin (Pregabalin 50 Mg Capsule) 50 mg PO BID YESSENIA Stop: 01/04/24 20:59 Last Admin: 07/09/23 08:26 Dose: 50 mg Sennosides (Sennosides 8.6 Mg Tablet) 2 tab PO DAILY@12 PRN PRN Reason: If no BM in 2 days Stop: 07/08/24 11:59 Sodium Chloride (Sodium Chloride 0.9 % 10 Ml Syringe) 0 ml IV-PUSH PRN PRN PRN Reason: Flush Stop: 07/07/24 18:09 Vitamin D (Cholecalciferol 25 Mcg (1,000 Units) Tablet) 25 mcg PO DAILY YESSENIA Stop: 07/08/24 08:59 Last Admin: 07/09/23 08:26 Dose: 25 mcg Exam Physical Exam Vital Signs: Temp Pulse Resp BP Pulse Ox O2 Del Method O2 Flow Rate 98.6 F 78 20 159/69 H 99 Room Air 2 07/09/23 06:00 07/09/23 06:00 07/09/23 06:00 07/09/23 06:00 07/09/23 06:00 07/09/23 06:00 07/09/23 00:00 Narrative: General: Awake, alert, oriented x3 HENT: Normal to inspection, normocephalic, atraumatic Eyes: PERRL, normal conjunctiva and sclera Neck: Limited ROM. C-collar intact. Surgical incision to posterior neck, covered with a dressing. Cardio: Regular heart rate and rhythm Respiratory: Clear to auscultation bilaterally. Normal respiratory effort. No respiratory distress. GI: Abdomen soft, nontender, nondistended, active bowel sounds x4 quadrants Neuro: CN II-XII intact. Generalized weakness, more so in the upper extremities. Extremities: No edema, erythema, cyanosis Psych: Mood and affect appropriate. Normal speech. Results - Phys. Rehab Labs Labs: Laboratory Results - last 24 hr 07/08/23 07/09/23 07/09/23 20:51 05:33 07:10 Corrected WBC 10.1 Uncorrected WBC Count 10.1 RBC 3.58 L Hgb 10.4 L Hct 32.8 L MCV 91.6 MCH 29.1 MCHC 31.8 L RDW 17.4 H Plt Count 239 MPV 8.4 Neut % (Auto) 72.2 Lymph % (Auto) 15.7 Band[place] % (Auto) 9.4 Eos % (Auto) 2.4 Baso % (Auto) 0.3 Nucleat RBC Rel Count 0.0 Neut # (Auto) 7.3 Lymph # (Auto) 1.6 [place] # (Auto) 0.9 H Eos # (Auto) 0.2 Baso # (Auto) 0.0 PHA Creatinine Clear 11.09 Sodium 137 Potassium 4.2 Chloride 95 L Carbon Dioxide 29.1 Anion Gap 17.1 H BUN 45 H Creatinine 4.05 H D Est GFR (CKD-EPI) 10.899 Glucose 186 H POC Glucose 214 169 Calcium 8.7 Total Bilirubin 0.3 AST 19 ALT 3 L Alkaline Phosphatase 155 H Total Protein 5.5 L Albumin 3.0 L Globulin 2.5 Albumin/Globulin Ratio 1.2 Prealbumin 20.4 Additional Results Results Comment: I reviewed clinical lab tests, radiology reports and obtained and summated medical records and have ordered follow up lab tests and imaging studies as needed for rehabilitation care. Functional Status Prior Level of Function Narrative: Patient was previously independent. Ambulatory with a walker/rollator. Current Level of Function Narrative: Ambulatory 80 feet with a walker, contact-guard assist. Min assist with transfers. Assessment/Plan (1) Odontoid fracture with type II morphology: (2) Chronic hypotension: (3) Type 2 diabetes mellitus with diabetic chronic kidney disease: (4) Anemia of renal disease: (5) Secondary hyperparathyroidism: (6) CAD (coronary artery disease): Qualifiers: Associated angina: without angina Coronary Disease-Associated Artery/Lesion type: cheesh-na artery [place] vs. transplanted heart: cheesh-na heart Qualified Code(s): I25.10 - Atherosclerotic heart disease of cheesh-na coronary artery without angina pectoris (7) ESRD (end stage renal disease): (8) COPD (chronic obstructive pulmonary disease): (9) Impaired mobility and activities of daily living: (10) Cognitive communication deficit: (11) Oropharyngeal dysphagia: Plan Patient is a 78-year-old female with complex past medical history including CAD,DM, ESRD on dialysis who presents to acute inpatient rehabilitation unit with multifactorial functional impairments in the setting of C2 fracture s/p surgicalrepair. * Admission labs and vitals noted, stable. * Blood glucose elevated. Trend, adjust regimen if necessary. * Maintain c-collar as per neurosurgery recommendations. * Maintain current pain regimen. Patient education Pressure ulcer prophylaxis; encourage mobilization, frequent postural changes, pressure-relief techniques DVT prophylaxis Encourage deep breathing exercise incentive spirometry. Monitor bladder. Toileting schedule. Continue current bladder management, with scans as needed and CIC if needed. Start bowel care program every day to obtain continence, prevent ileus. Maintain fall precautions Gait and balance retraining Functional training and self-care and home management, including activities of daily living and instrumental activities of daily living Provision of the necessary gait aids and functional adaptive equipment to enhance the patient's a functional orthodoxy Ensure adequate nutrition and hydration Sleep she has Pain: Continue current regimen Discharge planning: Hopefully home with family in 10-14 days I spent 37 minutes for services, including [id number] encounter with the patient, discussion of the case, plan of care, and exam; and [id number] activities, such as reviewing pertinent sustainability consultant documentation, recent therapynotes, laboratory and radiology studies, and discussion of case with care team including physician, nursing, high risk case manager, and therapists. More than 50 % of time was spent on patient/family counseling or coordination ofcare. I completed a substantive portion of this encounter, the medical decision makingportion of this note in its entirety, including Allied health note review, nursing note review, sustainability consultant note review, discussion with nursing and case management, and more than 50% of my time was spent on counseling and coordination of care, time spent 55 minutes Patient was personally seen by me, Dr. Johnson, on the day of encounter, within 24hours of rehab admission, reviewed the history and the relevant portions of the chart, including current orders, allied health and sustainability consultant notes, labs/imaging and performed chow elements of exam and I formulated the plan of care and facilitated the medical decision making. 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 She has dementia diagnosis in various parts of her chart and endorses to chronic memory issues. Can also screen for cog impairment given importance of restrictions/fall precautions postoperatively. Documented By: Larissa Chacon APRN 07/09/23 0 856 Signed By: <Electronically signed by NELI Chacon> 07/09/23 0925 <Electronically signed by Quintin Johnson MD> 07/09/23 [address] [facility] Work Phone: 1(237) 172-798605-28-2024 Consult note Author Quintin Johnson [facility] July 08, 2023 2:36pm Note Date/Time July 08, 2023 10:22 am [facility] [address] [place] [address] Physiatry (Rehab) Consult Note Signed Patient: Cinthya Wilson MR#: [id number] : 1945 Acct:[id number] Age/Sex: 78 / F Adm Date: 4 Loc: 4N Room: [address] [place] [address] Type: ADM IN Attending Dr: Lexi Carlson DO Copies to: MD Quintin Bourgeois II, MD Yazid Hussein, DO~ Etiologic Dx/Impairment Group Narrative Narrative: Cervical fracture s/p fixation HPI Consult Date: 07/08/23 Requesting Physician: Lexi Carlson DO Primary Care Provider: Lily Del Real II, MD Consult Narrative Reason for consult: IRF; postop HPI: Ms. Wilson is a 78-year-old female with multiple complex medical comorbidities as noted above presenting postop day 4 after pedicle screw fixation C1-C2 and lateral mass screws C3 with bilateral fusion C1-C3, after a fall while walking outside. Extensive imaging performed in the ER. Demonstrated odontoid fracture. Also redemonstrated severe stenosis versus occlusion of the right vertebral artery and a chronic right pleural effusion with adjacent lower lobe consolidation. Of note, she has stage II pressure ulcer at the coccyx and a right great toe ulcer. Today feels well. Pain at operative site. Worked with therapy. Very motivated. Review of Systems Review of Systems All other systems reviewed & are negative unless noted below or in HPI [facility] Medical History Secondary hyperparathyroidism Anemia of renal disease Type 2 diabetes mellitus with diabetic chronic kidney disease Diabetes mellitus with insulin therapy Chronic hypoxemic respiratory failure ESRD (end stage renal disease) CAD (coronary artery disease) COPD (chronic obstructive pulmonary disease) Fall Carotid stenosis, bilateral End-stage renal disease (ESRD) Heart failure Missed dialysis Chronic combined systolic and diastolic CHF (congestive heart failure) Hyponatremia Pneumonia Polymyalgia Skin cancer mohs procedure for removal Neuropathy right thigh and feet Sleep apnea Irregular heart rhythm prior to stent placement per pt report Neck pain with history of cervical spinal surgery Cataract had bilateral PHACO Chronic back pain Arthritis Cervical spinal stenosis Anxiety Hyperlipidemia HTN (hypertension) [...] Family History Father Heart disease Cancer Mother Diabetes Cancer Brother Cancer Legacy FamHx Relation: Brother(s); Legacy FamHx Problem: Diagnosed with Cancer Social History Smoking Status: Never smoker Substance Use Type: None Social History Comments: adult son Meds Medications and Allergies Allergies lisinopril Allergy (Unknown, Verified 06/30/23 12:32) Cough gabapentin Allergy (Verified 06/30/23 12:32) Swelling of Lip/Tongue/Throat Home Medications atorvastatin 40 mg tablet 40 mg PO QPM 11/19/16 [History Confirmed 06/30/23] multivitamin 1 tab PO DAILY 09/07/19 [History Confirmed 06/30/23] aspirin 81 mg tablet,delayed release 81 mg PO DAILY 11/25/19 [History Confirmed 06/30/23] cholecalciferol (vitamin D3) 25 mcg (1,000 unit) tablet (Vitamin D3) 25 mcg PO DAILY 11/25/19 [History Confirmed 06/30/23] albuterol sulfate 0.63 mg/3 mL solution for nebulization 0.63 mg inhalation QID PRN SOB 06/26/21 [History Confirmed 06/30/23] docusate sodium 100 mg capsule 100 mg PO BID #60 caps 11/20/21 [Rx Confirmed 06/30/23] pen needle, diabetic 32 gauge x /32 (BD Ultra-Fine Lexis Pen Needle) #100 ea 11/20/21 [Rx Confirmed 06/30/23] calcium acetate(phosphat bind) 667 mg capsule 667 mg PO TID.WITH.MEALS 60 days #240 caps 02/26/22 [Rx Confirmed 06/30/23] pantoprazole 40 mg tablet,delayed release 40 mg PO DAILY 05/17/22 [History Confirmed 06/30/23] diclofenac sodium 1 % topical gel (Voltaren Arthritis Pain) 4 g topical QID #0 grams 10/31/22 [Rx Confirmed 06/30/23] furosemide 20 mg tablet 60 mg (3 x 20 mg) PO BID 30 days #180 tabs 10/31/22 [Rx Confirmed 06/30/23] fluticasone fur. 100 mcg-umeclid 62.5 mcg-vilant 25 mcg inhalat.powder (Trelegy Ellipta) 2 ea inhalation DAILY 12/06/22 [History Confirmed 06/30/23] pramipexole 0.5 mg tablet 0.5 mg PO HS 12/06/22 [History Confirmed 06/30/23] insulin lispro 100 unit/mL subcutaneous pen (Humalog KwikPen (U-100) Insulin) 1 sliding scale dose subcut ACHS 12/29/22 [History Confirmed 06/30/23] ondansetron 4 mg disintegrating tablet 4 mg PO Q6H PRN Nausea 12/29/22 [History Confirmed 06/30/23] acetaminophen 650 mg tablet,extended release (Arthritis Pain Reliever) 650 mg POQ12H PRN pain 03/05/23 [History Confirmed 06/30/23] buspirone 10 mg tablet 10 mg PO BID 03/05/23 [History Confirmed 06/30/23] metoprolol tartrate 25 mg tablet 12.5 mg PO DAILY 03/05/23 [History Confirmed 06/30/23] mexiletine 200 mg capsule 200 mg PO Q8HR 30 days #90 caps 03/07/23 [Rx Confirmed 06/30/23] pregabalin 50 mg capsule (Lyrica) 50 mg PO BID 04/01/23 [History Confirmed 06/30/23] oxycodone-acetaminophen 5 mg-325 mg tablet (Percocet) 1 - 2 tab PO Q6HR PRN pain3 days #15 tabs 04/16/23 [Rx Confirmed 06/30/23] lidocaine 4 % topical patch (Lidocaine Pain Relief) 1 patch topical BID 06/30/23[History Confirmed 06/30/23] lubiprostone 8 mcg capsule (Amitiza) 8 mcg PO BID 06/30/23 [History Confirmed 06/30/23] midodrine 5 mg tablet 5 mg PO DAILY PRN low bp 06/30/23 [History Confirmed 07/04/23] polyethylene glycol 3350 17 gram/dose oral powder (ClearLax) 17 g PO BID 06/30/23 [History Confirmed 06/30/23] tizanidine 4 mg capsule (Zanaflex) 4 mg PO QHS 06/30/23 [History Confirmed 06/30/23] citalopram 20 mg tablet 20 mg PO DAILY #30 tabs 07/08/23 [Rx] midodrine 5 mg tablet 5 mg PO TID.7A.12P.5P 30 days #90 tabs 07/08/23 [Rx] Exam Physical Exam Vital Signs: Temp Pulse Resp BP Pulse Ox O2 Del Method O2 Flow Rate 98.6 F 72 18 132/67 97 Nasal Cannula 2 07/08/23 07:32 07/08/23 09:04 07/08/23 09:04 07/08/23 07:32 07/08/23 07:32 07/08/23 09:04 07/08/23 09:04 Narrative: Pleasant NAD C-collar in place Generally weak No hyperrflexia, negative Yung's. Transfers with assist from therapy Results - Phys. Rehab Labs Labs: Laboratory Results - last 24 hr 07/07/23 07/07/23 07/07/23 05:08 05:08 05:08 Corrected WBC Uncorrected WBC Count RBC Hgb Hct MCV MCH MCHC RDW Plt Count MPV Neut % (Auto) Lymph % (Auto) [place] % (Auto) Eos % (Auto) Baso % (Auto) Nucleat RBC Rel Count Neut # (Auto) Lymph # (Auto) [place] # (Auto) Eos # (Auto) Baso # (Auto) PHA Creatinine Clear Sodium Potassium Chloride Carbon Dioxide Anion Gap BUN Creatinine Est GFR (CKD-EPI) Glucose POC Glucose POC Glucose Comment Calcium Magnesium Iron 74 Cancelled TIBC 168 L Cancelled Iron Saturation 44.0 Transferrin Ferritin 07/07/23 07/07/23 07/07/23 05:08 05:08 05:08 Corrected WBC Uncorrected WBC Count RBC Hgb Hct MCV MCH MCHC RDW Plt Count MPV Neut % (Auto) Lymph % (Auto) [place] % (Auto) Eos % (Auto) Baso % (Auto) Nucleat RBC Rel Count Neut # (Auto) Lymph # (Auto) [place] # (Auto) Eos # (Auto) Baso # (Auto) PHA Creatinine Clear Sodium Potassium Chloride Carbon Dioxide Anion Gap BUN Creatinine Est GFR (CKD-EPI) Glucose POC Glucose POC Glucose Comment Calcium Magnesium Iron TIBC Iron Saturation Cancelled Transferrin 120 L Cancelled Ferritin 1612.0 H Cancelled 07/07/23 07/07/23 07/07/23 14:03 16:01 17:06 Corrected WBC Uncorrected WBC Count RBC Hgb Hct MCV MCH MCHC RDW Plt Count MPV Neut % (Auto) Lymph % (Auto) [place] % (Auto) Eos % (Auto) Baso % (Auto) Nucleat RBC Rel Count Neut # (Auto) Lymph # (Auto) [place] # (Auto) Eos # (Auto) Baso # (Auto) PHA Creatinine Clear 21.55 Sodium 135 L Potassium 3.3 L Chloride 95 L Carbon Dioxide 31.8 H Anion Gap 11.5 BUN 15 D Creatinine 2.11 H D Est GFR (CKD-EPI) 23.833 Glucose 184 H POC Glucose 129 178 POC Glucose Comment Calcium 8.6 Magnesium 1.7 L Iron TIBC Iron Saturation Transferrin Ferritin 07/07/23 07/08/23 07/08/23 20:29 06:58 08:26 Corrected WBC 9.7 Uncorrected WBC Count 9.7 RBC 3.52 L Hgb 10.1 L Hct 32.0 L MCV 90.8 MCH 28.6 MCHC 31.5 L RDW 17.9 H Plt Count 222 MPV 8.4 Neut % (Auto) 75.2 Lymph % (Auto) 13.3 [place] % (Auto) 10.0 Eos % (Auto) 1.3 Baso % (Auto) 0.2 Nucleat RBC Rel Count 0.1 Neut # (Auto) 7.3 Lymph # (Auto) 1.3 [place] # (Auto) 1.0 H Eos # (Auto) 0.1 Baso # (Auto) 0.0 PHA Creatinine Clear 15.45 Sodium 138 Potassium 4.0 Chloride 95 L Carbon Dioxide 32.0 H Anion Gap 15.0 BUN 28 H Creatinine 2.96 H D Est GFR (CKD-EPI) 15.877 Glucose 217 H POC Glucose 245 207 POC Glucose Comment Glu2: cleaned meter Calcium 8.6 Magnesium Iron TIBC Iron Saturation Transferrin Ferritin Additional Results Results Comment: I reviewed clinical lab tests, radiology reports and obtained and summated medical records and have ordered follow up lab tests and imaging studies as needed for rehabilitation care. Assessment/Plan (1) Odontoid fracture with type II morphology: (2) Chronic hypotension: (3) Anemia of renal disease: (4) Type 2 diabetes mellitus with diabetic chronic kidney disease: (5) CAD (coronary artery disease): Qualifiers: Associated angina: without angina Coronary Disease-Associated Artery/Lesion type: cheesh-na artery [place] vs. transplanted heart: cheesh-na heart Qualified Code(s): I25.10 - Atherosclerotic heart disease of cheesh-na coronary artery without angina pectoris (6) Chronic hypoxemic respiratory failure: (7) COPD (chronic obstructive pulmonary disease): (8) Systolic and diastolic CHF, acute on chronic: (9) Sleep apnea: (10) Atrial fibrillation: (11) ESRD (end stage renal disease): Plan 78-year-old female with multiple complex medical comorbidities as noted above presenting postop day 4 after pedicle screw fixation C1-C2 and lateral mass screws C3 with bilateral fusion C1-C3, after a fall. -Good IRF candidate, not at premorbid baseline. -High fall risk, ESRD status Patient is medically stable and appropriate for admission to the acute inpatient rehabilitation unit, would benefit from and tolerate least 3 hours daily, at least 5 days/week, of physical and occupational therapy, with additional therapy as needed to address functional impairment related to above documented medical conditions and facilitate community discharge home in a timely fashion. Patient has medical complexity that cannot be best managed at a lower level of care and requires at least 3 times weekly encounters with multineedle shirrer for medical management and for plan of care review / changes. Patient was personally seen by me, Dr. Johnson, on the day of encounter, reviewed the history and the relevant portions of the chart, including current orders, allied health and sustainability consultant notes, labs/imaging and performed chow elements of exam and I formulated the plan of care and facilitated the medical decision making. I completed a substantive portion of this encounter, the medical decision making portion of this note in its entirety, including Allied health note review, nursing note review, sustainability consultant note review, discussion with nursing and case management, and more than 50% of my time was spent on counseling and coordination of care, time spent 70 minutes Documented By: Quintin Johnson MD 07/08/23 1022 Signed By: <Electronically signed by Quintin Johnson MD> 07/08/23 2627 [facility] Work Phone: [phone]) 776-109905-28-2024 Discharge summary Author Lexi Carlson [facility] July 08, 2023 11:55am Note Date/Time July 08, 2023 11:55 am [facility] [address] [place] [address] Discharge Summary Signed Patient: Cinthya Wilson MR#: [id number] : 1945 Acct:[id number] Age/Sex: 78 / F Adm Date: 4 Loc: 4N Room: [address] [place] [address]: Lexi Carlson DO Copies to: MD Lexi Bourgeois II, DO~ Providers Date of Discharge: 07/08/23 Discharging Provider: Lexi Carlson Primary Care Provider: Lily Del Real Consults: 06/30/23 18:02 Consult to Neurosurgery Routine Comment: Consulting Provider: [facility] Natasha [facility] Neurosurgery Reason For Exam: NEW FRACTURE AT THE BASE OF THE ODONTOID Has Provider Been Notified: Yes Date of Notification: 06/30/23 Time of Notification: 18:53 06/30/23 18:58 Consult to Nephrology Routine Comment: Consulting Provider: DERIAN Kaur Nephrology Has Provider Been Notified: Yes Date of Notification: 06/30/23 Time of Notification: 18:56 Reason for Consult: Dialysis Treatment 07/01/23 06:29 Consult to Dietitian Routine Comment: Reason for Consult: Low Francisco Javier Score 07/01/23 08:23 Consult to Cardiology Routine Comment: Consulting Provider: [facility] - Cardiology Reason For Exam: Cardiac clearance Has Provider Been Notified: Yes Date of Notification: 07/01/23 Time of Notification: 08:29 Extended Comment: Patient with history of congestive heart failure, and renaldialysis 07/02/23 09:13 Consult to Speech Therapy Routine Comment: Reason for ST Consult: Bedside Swallow Eval & Tx Diet per ST Recommendations: Yes Modified Barium Swallow Study, If Recommended: Yes 07/04/23 13:29 Consult to Occupational Therapy Routine Comment: Physician Instructions: Consult to OT for:: Evaluation and Treat Consult to Physical Therapy Routine Comment: Physician Instructions: Consult to PT for:: Evaluation and Treat 07/08/23 10:13 Consult to Physiatry Routine Comment: Consulting Provider: DERIAN Kaur Phys Med - Rehab Reason For Exam: post acute care discharge needs Has Provider Been Notified: Yes Date of Notification: 07/08/23 Time of Notification: 10:20 07/08/23 10:21 Consult to Dietitian Routine Comment: Reason for Consult: Other Other Reason: pt requesting boost drink with meals Discharge Diagnosis (1) Odontoid fracture: (2) ESRD (end stage renal disease): (3) Type 2 diabetes mellitus with diabetic chronic kidney disease: (4) Secondary hyperparathyroidism: (5) Chronic hypotension: Final Diagnosis Final Discharge Diagnosis: Odontoid fracture End-stage renal disease Summary Hospital Course Hospital course: Patient is a 78-year-old female with past medical history of end-stage renal disease on hemodialysis who sustained a fall and suffered odontoid fracture . She was admitted to medical floor and neurosurgery was consulted. Patient underwent fracture repair. She tolerated her procedure well. Postprocedure, patientwas evaluated for rehab and she was discharged to rehab in a stable condition. Condition Condition at Discharge: Stable Status at Discharge Overall status at discharge: patient is progressing back to baseline Time Spent with Patient Time spent providing/coordinating discharge services (# min): 35 Surgeries and Procedures Operation Date: 07/04/23 09:15 Actual Procedures p OR Posterior Cervical Fusion with C1, C2, C3 Fixation(Not Applicable) - Seth Aaron MD Discharge Plan Discharge Plan Patient Disposition: Rehab [facility] [facility] Diet: Renal Comment: Dental soft diet, chopped meats, thin liquids Additional Instructions: Inpatient Rehab to manage care: - Full code - PT/OT eval and treat - Routine vital signs - Oxygen at 2L per nasal cannula, titrate as needed to keep pox > 90% - Coccyx stage 2 pressure injuries- Clean with Theraworx protect foam. Pat dry and apply Mepilex border foam for protection. Change every 3 days and as needed. - Right great toe ulcer- Clean with Vashe and pat dry. Apply Hydrogel to the wound bed. Top with Adaptic and 2x2 gauze. Secure with Conform and paper tape. (continue home dose of Santyl at discharge). Change daily and as needed. - Dental soft diet, chopped meats, thin liquids - Intermittent supervision - Sit upright at 90 degrees for all meals - Sit upright for 30 minutes after meals - Hemodialysis per chronic schedule Instructions: Heart Failure, Adult (DC) Prescriptions: New midodrine 5 mg Tablet 5 mg PO TID.7A.12P.5P 30 Days Qty: 90 0RF citalopram 20 mg Tablet 20 mg PO DAILY Qty: 30 0RF Continued multivitamin Tablet 1 [...] apart. Further refills or adjustments per Nephrology. ondansetron 4 mg Tablet,Disintegrating 4 mg PO Q6H PRN (Reason: Nausea) insulin lispro [Humalog KwikPen Insulin] 100 unit/mL insulin pen 1 sliding scale dose SUBCUT ACHS acetaminophen [Arthritis Pain Reliever] 650 mg tablet extended release 650 mg PO Q12H PRN (Reason: pain) buspirone 10 mg tablet 10 mg PO BID metoprolol tartrate 25 mg tablet 12.5 mg PO DAILY mexiletine 200 mg Capsule 200 mg PO Q8HR 30 Days Qty: 90 1RF oxycodone-acetaminophen [Percocet] 5-325 mg tablet 1 - 2 tab PO Q6HR PRN (Reason: pain) 3 Days Qty: 15 0RF lubiprostone [Amitiza] 8 mcg capsule 8 mcg PO BID midodrine 5 mg tablet 5 mg PO DAILY PRN (Reason: low bp) Rx Instructions: can give one dose at dialysis polyethylene glycol 3350 [ClearLax] 17 gram/dose powder 17 g PO BID tizanidine [Zanaflex] 4 mg capsule 4 mg PO QHS lidocaine [Lidocaine Pain Relief] 4 % Adhesive Patch,Medicated 1 patch topical BID atorvastatin 40 mg tablet 40 mg PO QPM Patient Comments: Rx Instructions: 1 tablet PO daily aspirin 81 mg Tablet,Delayed Release (Dr/Ec) 81 mg PO DAILY Hold Instructions: resume in 2 days if no further bleeding noted. cholecalciferol (vitamin D3) [Vitamin D3] 25 mcg (1,000 unit) Tablet 25 mcg PO DAILY albuterol sulfate 0.63 mg/3 mL Solution For Nebulization 0.63 mg inhalation QID PRN (Reason: SOB) pramipexole 0.5 mg tablet 0.5 mg PO HS Trelegy Ellipta 100-62.5-25 mcg blister with device 2 ea INHALATION DAILY Patient Comments: INHALE 1 PUFF BY MOUTH EVERY DAY pregabalin [Lyrica] 50 mg capsule 50 mg PO BID Discontinued loratadine [Allerclear] 10 mg tablet 5 mg PO DAILY citalopram 40 mg tablet 40 mg PO DAILY midodrine 5 mg tablet 10 mg PO TID Rx Instructions: do not give last dose of day after 6PM or within 4 hrs of bedtime Follow Up: Seth Weiss MD [Active Staff] - 07/24/23 11:00 am (Follow-up with Neurosurgery) Exam Physical Exam Vital Signs: Temp Pulse Resp BP Pulse Ox O2 Del Method O2 Flow Rate 98.6 F 72 18 132/67 97 Nasal Cannula 2 07/08/23 07:32 07/08/23 09:04 07/08/23 09:04 07/08/23 07:32 07/08/23 07:32 07/08/23 09:04 07/08/23 09:04 Narrative: General in no acute distress, sitting in her hospital chair with a c-collar Heart is regular Lungs clear Abdomen soft nontender nondistended Neurologically intact throughout, oriented x 3 Extremities pulses intact, no edema Skin no rash Diagnostic Studies Completed and Pending Studies Pending studies at discharge: 06/30/23 12:51 Urinalysis Stat Labs on day of discharge: 07/08/23 11:26: POC Glucose 125, POC Glucose Comment Glu2: cleaned meter 07/08/23 08:26: POC Glucose 207, POC Glucose Comment Glu2: cleaned meter 07/08/23 06:58: Corrected WBC 9.7, Uncorrected WBC Count 9.7, RBC 3.52 L, Hgb 10.1 L, Hct 32.0 L, MCV 90.8, MCH 28.6, MCHC 31.5 L, RDW 17.9 H, Plt Count 222, MPV 8.4, Neut % (Auto) 75.2, Lymph % (Auto) 13.3, Bandera % (Auto) 10.0, Eos % (Auto) 1.3, Baso % (Auto) 0.2, Nucleat RBC Rel Count 0.1, Neut # (Auto) 7.3, Lymph # (Auto) 1.3, Bandera # (Auto) 1.0 H, Eos # (Auto) 0.1, Baso # (Auto) 0.0, PHA Creatinine Clear 15.45, Sodium 138, Potassium 4.0, Chloride 95 L, Carbon Dioxide 32.0 H, Anion Gap 15.0, BUN 28 H, Creatinine 2.96 H D, Est GFR (CKD-EPI)15.877, Glucose 217 H, Calcium 8.6 07/07/23 20:29: POC Glucose 245 07/07/23 17:06: POC Glucose 178 07/07/23 16:01: PHA Creatinine Clear 21.55, Sodium 135 L, Potassium 3.3 L, Chloride 95 L, Carbon Dioxide 31.8 H, Anion Gap 11.5, BUN 15 D, Creatinine 2.11H D, Est GFR (CKD-EPI) 23.833, Glucose 184 H, Calcium 8.6, Magnesium 1.7 L 07/07/23 14:03: POC Glucose 129 07/07/23 05:08: Ferritin 1612.0 H Documented By: Lexi Carlson DO 07/08/23 1150 Signed By: <Electronically signed by Lexi Carlson DO> 07/08/23 1155 [facility] Work Phone: 1(574) 359-443705-28-2024 Progress note Author Seth Weiss [facility] July 08, 2023 7:56am Note Date/Time July 08, 2023 7:56a m [facility] [address] [place] [address] Neurosurgery Progress Note Signed Patient: Cinthya Wilson MR#: [id number] : 1945 Acct:[id number] Age/Sex: 78 / F Adm Date: 4 Loc: Room: [address] [place] [address] Type: ADM IN Attending Dr: Lexi Carlson DO Copies to: ~ Date of Service: 07/08/2023 Subjective Subjective HPI: Patient is cooperative today no complaints looking forward to rehab Exam Physical Exam Vital Signs: Temp Pulse Resp BP Pulse Ox O2 Del Method O2 Flow Rate 98.2 F 66 16 137/64 99 Nasal Cannula 2 07/08/23 03:27 07/08/23 03:27 07/08/23 03:27 07/08/23 03:27 07/08/23 03:27 07/08/23 03:27 07/08/23 03:27 Narrative: Alert and oriented by 3 Face symmetrical Upper extremity strength at baseline unable to raise arms overhead Lower extremity strength at baseline Objective Lab Results Most Recent Labs: 07/08/23 06:58: Corrected WBC 9.7, Uncorrected WBC Count 9.7, RBC 3.52 L, Hgb 10.1 L, Hct 32.0 L, MCV 90.8, MCH 28.6, MCHC 31.5 L, RDW 17.9 H, Plt Count 222, MPV 8.4, Neut % (Auto) 75.2, Lymph % (Auto) 13.3, Bandera % (Auto) 10.0, Eos % (Auto) 1.3, Baso % (Auto) 0.2, Nucleat RBC Rel Count 0.1, Neut # (Auto) 7.3, Lymph # (Auto) 1.3, Bandera # (Auto) 1.0 H, Eos # (Auto) 0.1, Baso # (Auto) 0.0 07/07/23 20:29: POC Glucose 245 07/07/23 17:06: POC Glucose 178 07/07/23 16:01: PHA Creatinine Clear 21.55, Sodium 135 L, Potassium 3.3 L, Chloride 95 L, Carbon Dioxide 31.8 H, Anion Gap 11.5, BUN 15 D, Creatinine 2.11H D, Est GFR (CKD-EPI) 23.833, Glucose 184 H, Calcium 8.6, Magnesium 1.7 L 07/07/23 14:03: POC Glucose 129 07/07/23 05:08: Ferritin Cancelled 07/07/23 05:08: Transferrin Cancelled, Ferritin 1612.0 H 07/07/23 05:08: Iron Saturation Cancelled, Transferrin 120 L 07/07/23 05:08: TIBC Cancelled, Iron Saturation 44.0 07/07/23 05:08: Iron Cancelled, TIBC 168 L 07/07/23 05:08: Iron 74 Assessment/Plan Assessment/Plan (1) Odontoid fracture: Qualifiers: Encounter type: subsequent encounter Fracture healing: with delayed healing Fracture type: closed Qualified Code(s): S12.100G - Unspecified displaced fracture of second cervical vertebra, subsequent encounter for fracture with delayed healing (2) ESRD (end stage renal disease): (3) Type 2 diabetes mellitus with diabetic chronic kidney disease: (4) Secondary hyperparathyroidism: (5) Chronic hypotension: Plan Patient I believe took 14 steps yesterday which is definite improvement. She isin need of inpatient rehab. Her balance is exceedingly poor she needs upper extremity strengthening in order to feed herself and care for herself, she is inneed of gait training and leg strengthening. Documented By: Seth Weiss MD 07/08/23753 Signed By: <Electronically signed by MD Seth Weiss> 07/08/23 0756 [facility] Work Phone: 1(147) 645-225805-27-2024 Progress note Author Wood Zavala [facility] July 07, 2023 11:17am Note Date/Time July 07, 2023 11:17 am [facility] [address] [place] [address] Nephrology Progress Note Signed Patient: Cinthya Wilson MR#: [id number] : 1945 Acct:[id number] Age/Sex: 78 / F Adm Date: 4 Loc: 4N Room: [address] [place] [address] Type: ADM IN Attending Dr: Cesario Clifford MD Copies to: ~ Date of Service: 07/07/2023 Subjective Subjective Narrative: This is a 78-year-old female well-known to to me from outpatient [facility] unit was presented to the emergency room after her dialysis due to the neck pain. 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 Her other comorbidities are CAD s/p PCI, COPD, chronic hypoxic diastolic failure, cardiac arrhythmia s/p AICD and dyslipidemia. Reported as she fell 3 days ago and was having excruciating pain. In the emergency room she had a CT head and neck which showed no acute intracranial bleed or stroke, stable carotid plaque and stenosis and occlusion of the right vertebral artery, new fracture at the base of the odontoid. Patient was admitted for further workup and neurosurgery was consulted. Nephrology is consulted for ESRD management during the hospital stay. Interval history Patient underwent the surgery on 07/04/2023 due to the C2 fracture and L1 fracture. Postoperatively she was monitored in ICU and doing well. Patient continued to receive dialysis on outpatient schedule. Patient was seen and examined at the bedside during hemodialysis. She denies any chest pain palpitation cough nausea vomiting diarrhea or shortness of breath. Exam Physical Exam Vital Signs: Temp Pulse Resp BP Pulse Ox O2 Del Method O2 Flow Rate 97.7 F 61 16 109/76 99 Nasal Cannula 2 07/07/23 09:07/07/23 10:00 07/07/23 09:25 07/07/23 10:00 07/07/23 09:25 07/07/23 09:25 07/07/23 09:25 Narrative: General: Appears comfortable and not in distress Heart: S1-S2, no rub Lung: Bilateral air entry, no wheezing or crackles Abdomen: Soft, positive bowel sounds Extremities: No edema, no cyanosis Head: Atraumatic, normocephalic Ear: No gross hearing Deficit or external ear redness Eyes: No pallor or redness Neck: No JVD or visible mass Skin: No rashes , warm to touch [employer]: Awake,Alert, following simple command Musculoskeletal: No swelling or limitation of movement of the large joints Psychiatric: Cooperative, normal mood and affect Objective Intake and Output I&O: Intake & Output 07/04/23 07/05/23 07/06/23 07/07/23 23:59 23:59 23:59 23:59 Intake Total 1090 / 1090 833 / 833 300 / 300 550 / 550 Output Total 0 / 0 3501 / 3501 0 / 0 0 / 0 Balance 1090 / 1090 -2668 / -2668 300 / 300 550 / 550 Weight 62.6 kg 65.7 kg 61.9 kg 68.4 kg Meds and Allergies Meds: Active Medications Acetaminophen (Acetaminophen 325 Mg Tablet) 650 mg PO Q4H PRN PRN Reason: Mild Pain Stop: 07/03/24 13:28 Aspirin (Aspirin 81 Mg Tablet.) 81 mg PO DAILY [facility] Stop: 06/30/24 08:59 Last Admin: 07/06/23 08:41 Dose: 81 mg Atorvastatin Calcium (Atorvastatin 40 Mg Tablet) 40 mg PO QPM [facility] Stop: 06/29/24 20:59 Last Admin: 07/06/23 22:42 Dose: 40 mg Bisacodyl (Bisacodyl 5 Mg Tablet.) 10 mg PO DAILY PRN PRN Reason: Constipation Stop: 06/29/24 18:01 Budesonide/Formoterol Fumarate (Budesonide/Formoterol 80-4.5 Mcg 60 Puff/6.9 Gm Hfa.Aer.Ad) 2 puff INHALATION BID [facility] Stop: 06/29/24 20:59 Last Admin: 07/07/23 08:38 Dose: 2 puff Buspirone HCl (Buspirone 10 Mg Tablet) 10 mg PO BID YESSENIA Stop: 06/29/24 20:59 Last Admin: 07/06/23 22:41 Dose: 10 mg Calcium Acetate (Calcium Acetate 667 Mg Capsule) 667 mg PO TID.WITH.MEALS YESSENIA Stop: 06/30/24 07:59 Last Admin: 07/07/23 09:10 Dose: 667 mg Citalopram Hydrobromide (Citalopram 20 Mg Tablet) 20 mg PO DAILY [facility] Stop: 06/30/24 08:59 Last Admin: 07/06/23 08:48 Dose: 20 mg Diclofenac Sodium (Diclofenac Sodium 1% Gel 100 Gm Tube) 4 gm TOPICAL QID [facility] Stop: 06/29/24 17:59 Last Admin: 07/07/23 09:10 Dose: 4 gm Diphenhydramine HCl (Diphenhydramine 25 Mg Capsule) 25 mg PO Q6H PRN PRN Reason: Itching Stop: 07/03/24 13:28 Docusate Sodium (Docusate 100 Mg Capsule) 100 mg PO BID [facility] Stop: 06/29/24 20:59 Last Admin: 07/06/23 22:42 Dose: 100 mg Famotidine (Famotidine 20 Mg Tablet) 20 mg PO Q48HR YESSENIA Stop: 07/05/24 20:59 Last Admin: 07/06/23 22:41 Dose: 20 mg Hydromorphone HCl (Hydromorphone 1 Mg/Ml Syringe) 1 mg IV-PUSH Q2H PRN PRN Reason: Pain Last Admin: 07/05/23 00:52 Dose: 1 mg Hydromorphone HCl (Hydromorphone 0.5 Mg/0.5 Ml Syringe) 0.5 mg IV-PUSH Q2H PRN PRN Reason: Pain Last Admin: 07/05/23 11:42 Dose: 0.5 mg Sodium Chloride (0.9% Sodium Chloride 1,000 Ml) 1,000 mls @ 0 mls/hr MISCELLANE.Q0M PRN PRN Reason: Dialysis Stop: 07/04/24 08:30 Last Infusion: 07/07/23 10:52 Dose: Infused Insulin Aspart (Insulin Aspart 300 Units/3 Ml Insuln.Pen) 0 units SUBCUT TID.WM.HS [facility]; Protocol Stop: 06/29/24 21:59 Last Admin: 07/07/23 09:10 Dose: 2 units Ipratropium [place] (Ipratropium [place] 0.5 Mg/2.5 Ml Vial.Neb) 0.5 mg INHALATION QID.RESP YESSENIA Stop: 06/29/24 19:59 Last Admin: 07/07/23 08:38 Dose: 0.5 mg Lidocaine (Lidocaine 4% Adh..Patch) 1 patch TOPICAL BID [facility] Stop: 06/29/24 20:59 Last Admin: 07/07/23 09:10 Dose: 1 patch Loratadine (Loratadine 10 Mg Tablet) 5 mg PO DAILY [facility] Stop: 06/30/24 08:59 Last Admin: 07/06/23 08:42 Dose: Not Given Lorazepam (Lorazepam 2 Mg/Ml Vial) 0.25 mg IV-PUSH Q6H PRN PRN Reason: Pain Stop: 12/31/23 12:19 Lorazepam (Lorazepam 0.5 Mg Tablet) 0.25 mg PO Q8H PRN PRN Reason: Pain Stop: 12/31/23 13:28 Lubiprostone (Lubiprostone 8 Mcg Capsule) 8 mcg PO BID [facility] Stop: 06/29/24 20:59 Last Admin: 07/06/23 22:43 Dose: 8 mcg Melatonin (Melatonin 5 Mg Tablet) 5 mg PO QHS PRN PRN Reason: Insomnia Stop: 06/29/24 18:01 Metoprolol Tartrate (Metoprolol Tartrate 12.5 Mg Tablet) 12.5 mg PO DAILY [facility] Stop: 06/30/24 08:59 Last Admin: 07/06/23 08:41 Dose: 12.5 mg Mexiletine HCl (Mexiletine 200 Mg Capsule) 200 mg PO Q8HR [facility] Stop: 06/29/24 21:59 Last Admin: 07/07/23 06:33 Dose: 200 mg Midodrine (Midodrine 5 Mg Tablet) 5 mg PO DAILY PRN PRN Reason: low bp Stop: 06/29/24 17:22 Last Admin: 07/02/23 10:32 Dose: 5 mg Midodrine (Midodrine 5 Mg Tablet) 5 mg PO TID.7A.12P.5P [facility] Stop: 06/30/24 06:59 Last Admin: 07/07/23 06:32 Dose: 5 mg Midodrine (Midodrine 5 Mg Tablet) 5 mg PO PRN PRN PRN Reason: Dialysis Stop: 07/01/24 08:56 Multivitamins (Multivitamin 1 Tab Tablet) 1 tab PO DAILY YESSENIA Stop: 06/30/24 08:59 Last Admin: 07/06/23 08:41 Dose: 1 tab Non-Formulary Medication (Albuterol Sulfate) 0.63 mg INHALATION QID PRN PRN Reason: Shortness Of Breath Stop: 06/29/24 17:22 Ondansetron HCl (Ondansetron Odt 4 Mg Tab.Rapdis) 4 mg PO Q6H PRN PRN Reason: Nausea Stop: 06/29/24 17:22 Ondansetron HCl (Ondansetron 4 Mg/2 Ml Vial) 4 mg IV-PUSH Q6H PRN PRN Reason: Nausea And Vomiting Stop: 07/03/24 13:28 Oxycodone HCl (Oxycodone Ir 5 Mg Tablet) 5 mg PO Q6HR PRN PRN Reason: Pain Scale 1 - 5 Last Admin: 07/04/23 14:00 Dose: 5 mg Oxycodone HCl (Oxycodone Ir 5 Mg Tablet) 10 mg PO Q6HR PRN PRN Reason: Pain Scale 6 - 10 Last Admin: 07/06/23 14:30 Dose: 10 mg Pramipexole Dihydrochloride (Pramipexole 0.5 Mg Tablet) 0.5 mg PO HS [facility] Stop: 06/29/24 21:59 Last Admin: 07/06/23 22:41 Dose: 0.5 mg Pregabalin (Pregabalin 50 Mg Capsule) 50 mg PO BID [facility] Stop: 12/27/23 20:59 Last Admin: 07/06/23 22:41 Dose: 50 mg Senna/Docusate Sodium (Sennosides/Docusate 8.6-50mg 1 Tab Tablet) 2 tab PO BID [facility] Stop: 07/03/24 20:59 Last Admin: 07/06/23 22:41 Dose: 2 tab Sodium Chloride (Sodium Chloride 0.9 % 10 Ml Vial.Pf) 10 ml INJECTION Q6H PRN PRN Reason: Ativan dilution Stop: 07/03/24 12:19 Last Admin: 07/04/23 22:13 Dose: 10 ml Sodium Chloride (Sodium Chloride 0.9 % 10 Ml Syringe) 0 ml IV-PUSH PRN PRN PRN Reason: Flush Stop: 07/04/24 08:30 Last Admin: 07/07/23 10:51 Dose: 10 ml Vitamin D (Cholecalciferol 25 Mcg (1,000 Units) Tablet) 25 mcg PO DAILY YESSENIA Stop: 06/30/24 08:59 Last Admin: 07/06/23 08:48 Dose: 25 mcg Allergies lisinopril Allergy (Unknown, Verified 06/30/23 12:32) Cough gabapentin Allergy (Verified 06/30/23 12:32) Swelling of Lip/Tongue/Throat Results - Nephrology Labs 07/07/23 05:08 07/07/23 05:08 Labs: 07/07/23 07/07/23 05:08 05:08 BUN 48 H Creatinine 4.38 H D Phosphorus 3.8 Iron Saturation 44.0 Cancelled Ferritin Cancelled Albumin 3.1 L Radiology Impressions Impressions - last 24 hours: Any impression(s) listed above is documentation that was entered by the reading physician into a diagnostic report(s) for Cinthya Wilson. I have reviewed the report(s) and am incorporating any findings in the treatment plan of this patient where applicable. A&P - Nephrology Assessment/Plan (1) Odontoid fracture: Assessment/Problem Details: Patient presents after a fall and was found to have odontoid fracture. She underwent the surgery on 07/04/2023. (2) ESRD (end stage renal disease): Assessment/Problem Details: She has a ESRD due to the hypertensive nephrosclerosis and diabetic nephropathy. She currently goes to the [facility] dialysis unit 3 times a week on MWF schedule. (3) Type 2 diabetes mellitus with diabetic chronic kidney disease: Assessment/Problem Details: She has insulin-dependent type 2 diabetes mellitus. (4) Secondary hyperparathyroidism: Assessment/Problem Details: She has secondary hyperparathyroidism due to the ESRD and hyperphosphatemia. She currently takes calcium acetate at home. 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 She takes midodrine for intradialytic hypotension. Plan * Hemodialysis today as ordered. * She has postoperative but hemoglobin is within the goal. She has adequate iron stores. Will start NS if hemoglobin drop below 10. * Continue DM management as per the primary hospitalist team. * Continue midodrine for intradialytic hypotension. * Continue management of the odontoid fracture as per the neurosurgery. * Continue home dose of the calcium acetate. * Check renal function in AM. Monitor CBC. Documented By: Wood Zavala MD 07/07/23 1113 Signed By: <Electronically signed by Wood Zavala MD> 07/07/23 1117 [facility] Work Phone: [phone]) [phone] Progress note Author Cesario Clifford [facility] July 07, 2023 9:44am Note Date/Time July 07, 2023 9:44a m [facility] [address] [place] [address] Hospitalist Progress Note Signed Patient: Cinthya Wilson MR#: [id number] : 1945 Acct:[id number] Age/Sex: 78 / F Adm Date: 4 Loc: Room: 0X8221-1 Type: ADM IN Attending Dr: Cesario Clifford MD Copies to: ~ Date of Service: 07/07/2023 Subjective Subjective Narrative: Patient was seen at bedside. She is doing well. She does not have any neuro deficits. However this morning she complained about left eye being still blurry of focus. She has to concentrate for a second to question what reason she patient focus on objects. This is something new. She can see well through her right eye. ON ADMISSION: 78-year-old white female past medical history of hypertension, hyperlipidemia, diabetes type 2, end-stage renal disease on hemodialysis, chronic COPD, sleep apnea GERD, anxiety, sleep apnea, and chronic neck and back pain who presented to emergency room with generalized weakness, generalized pain and fall. She hasbeen complaining of neck and back pain for the last 3 days. She has episode of fall 3 days ago. She has been complaining of blurred vision for no double vision no dizziness. No slurred speech. No headache. no upper extremity or lower extremity weakness. No upper extremity or lower extremity numbness or tingling. She denies having dizziness. No syncopal episode. She denies any chest pain or shortness of breath. She denies having abdominal pain. No diarrhea. She denies having dysuria, hematuria, frequency. No hematemesis, melena or hematochezia. CT brain no acute intracranial bleed. CTA neck showed stable carotid plaque and stenosis and occlusion of the right vertebral artery unchanged with extensive postoperative and degenerative changes at the cervical spine and NEW FRACTURE AT THE BASE OF THE ODONTOID IS SEEN. Exam Physical Exam Vital Signs: Temp Pulse Resp BP Pulse Ox O2 Del Method O2 Flow Rate 98.5 F 76 18 134/65 95 Nasal Cannula 2 07/07/23 08:00 07/07/23 08:38 07/07/23 08:38 07/07/23 08:00 07/07/23 08:38 07/07/23 08:38 07/07/23 08:38 Const General: cooperative and well hydrated Orientation: alert, awake and oriented x3 HEENT Head: normocephalic and atraumatic Face and sinus: normal facial exam and sinuses nontender Mouth: oral mucosae normal Eyes Conjunctivae: conjunctivae normal Sclera: sclerae normal Resp Effort & Inspection: normal respiratory effort, able to speak in complete sentences and symmetric chest movement Auscultation: clear to auscultation bilaterally Cardio Palpation: normal PMI Rate: regular rate Rhythm: regular rhythm Heart Sounds: S1 normal and S2 normal Pulses: dorsalis pedis present GI Palpation: soft and no hepatosplenomegaly Auscultation: normal bowel sounds Extrem General: full ROM Objective Lab Results 07/07/23 05:08 07/07/23 05:08 Meds Allergies and Active Meds Allergies lisinopril Allergy (Unknown, Verified 06/30/23 12:32) Cough gabapentin Allergy (Verified 06/30/23 12:32) Swelling of Lip/Tongue/Throat Active Meds: Active Medications Generic Name Dose Route Start Last Admin Trade Name Freq PRN Reason Stop Dose Admin Acetaminophen 650 mg 07/04/23 13:29 Acetaminophen 325 Mg Tablet PO 07/03/24 13:28 Q4H PRN Mild Pain Aspirin 81 mg 07/01/23 09:00 07/06/23 08:41 Aspirin 81 [address] Tablet.Dr ARORA 06/30/24 08:59 81 mg DAILY YESSENIA Administration Atorvastatin Calcium 40 mg 06/30/23 21:00 07/06/23 22:42 Atorvastatin 40 Mg Tablet PO 06/29/24 20:59 40 mg QPM YESSENIA Administration Bisacodyl 10 mg 06/30/23 18:02 Bisacodyl 5 Mg Tablet. PO 06/29/24 18:01 DAILY PRN Constipation Budesonide/Formoterol Fumarate 2 puff 06/30/23 21:00 07/07/23 08:38 Budesonide/Formoterol 80-4.5 Mcg 60 Puff/6.9 Gm Hfa.Aer.Ad INHALATION 06/29/24 20:59 2 puff BID YESSENIA Administration Buspirone HCl 10 mg 06/30/23 21:00 07/06/23 22:41 Buspirone 10 Mg Tablet PO 06/29/24 20:59 10 mg BID YESSENIA Administration Calcium Acetate 667 mg 07/01/23 08:00 07/07/23 09:10 Calcium Acetate 667 Mg Capsule PO 06/30/24 07:59 667 mg TID.WITH.MEALS YESSENIA Administration Citalopram Hydrobromide 20 mg 07/01/23 09:00 07/06/23 08:48 Citalopram 20 Mg Tablet PO 06/30/24 08:59 20 mg DAILY YESSENIA Administration Diclofenac Sodium 4 gm 06/30/23 18:00 07/07/23 09:10 Diclofenac Sodium 1% Gel 100 Gm Tube TOPICAL 06/29/24 17:59 4 gm QID YESSENIA Administration Diphenhydramine HCl 25 mg 07/04/23 13:29 Diphenhydramine 25 Mg Capsule PO 07/03/24 13:28 Q6H PRN Itching Docusate Sodium 100 mg 06/30/23 21:00 07/06/23 22:42 Docusate 100 Mg Capsule PO 06/29/24 20:59 100 mg BID YESSENIA Administration Famotidine 20 mg 07/06/23 21:00 07/06/23 22:41 Famotidine 20 Mg Tablet PO 07/05/24 20:59 20 mg Q48HR YESSENIA Administration Hydromorphone HCl 1 mg 07/04/23 13:29 07/05/23 00:52 Hydromorphone 1 Mg/Ml Syringe IV-PUSH 1 mg Q2H PRN Administration Pain Hydromorphone HCl 0.5 mg 07/04/23 13:29 07/05/23 11:42 Hydromorphone 0.5 Mg/0.5 Ml Syringe IV-PUSH 0.5 mg Q2H PRN Administration Pain Potassium Chloride/Sodium Chloride 1,000 mls @ 100 mls/hr 07/04/23 13:29 07/06/23 22:46 0.9 % Nacl-20 Meq Kcl IV 07/03/24 13:28 Not Given .Q10H YESSENIA Sodium Chloride 1,000 mls @ 0 mls/hr 07/05/23 08:31 07/05/23 11:45 0.9% Sodium Chloride 1,000 Ml MISCELLANE 07/04/24 08:30 Infused .Q0M PRN Infusion Dialysis As Directed Insulin Aspart 0 units 06/30/23 22:00 07/07/23 09:10 Insulin Aspart 300 Units/3 Ml Insuln.Pen SUBCUT 06/29/24 21:59 2 units TID.WM.HS YESSENIA Administration Protocol Ipratropium [place] 0.5 mg 07/04/23 16:00 07/07/23 08:38 Ipratropium [place] 0.5 Mg/2.5 Ml Vial.Neb INHALATION 06/29/24 19:59 0.5 mg QID.RESP YESSENIA Administration Lidocaine 1 patch 06/30/23 21:00 07/07/23 09:10 Lidocaine 4% Adh..Patch TOPICAL 06/29/24 20:59 1 patch BID YESSENIA Administration Loratadine 5 mg 07/01/23 09:00 07/06/23 08:42 Loratadine 10 Mg Tablet PO 06/30/24 08:59 Not Given DAILY YESSENIA Lorazepam 0.25 mg 07/04/23 12:20 Lorazepam 2 Mg/Ml Vial IV-PUSH 12/31/23 12:19 Q6H PRN Pain Lorazepam 0.25 mg 07/04/23 13:29 Lorazepam 0.5 Mg Tablet PO 12/31/23 13:28 Q8H PRN Pain Lubiprostone 8 mcg 06/30/23 21:00 07/06/23 22:43 Lubiprostone 8 Mcg Capsule PO 06/29/24 20:59 8 mcg BID YESSENIA Administration Melatonin 5 mg 06/30/23 18:02 Melatonin 5 Mg Tablet PO 06/29/24 18:01 QHS PRN Insomnia Metoprolol Tartrate 12.5 mg 07/01/23 09:00 07/06/23 08:41 Metoprolol Tartrate 12.5 Mg Tablet PO 06/30/24 08:59 12.5 mg DAILY YESSENIA Administration Mexiletine HCl 200 mg 06/30/23 22:00 07/07/23 06:33 Mexiletine 200 Mg Capsule PO 06/29/24 21:59 200 mg Q8HR YESSENIA Administration Midodrine 5 mg 06/30/23 17:23 07/02/23 10:32 Midodrine 5 Mg Tablet PO 06/29/24 17:22 5 mg DAILY PRN Administration low bp Midodrine 5 mg 07/01/23 07:00 07/07/23 06:32 Midodrine 5 Mg Tablet PO 06/30/24 06:59 5 mg TID.7A.12P.5P YESSENIA Administration Midodrine 5 mg 07/02/23 08:57 Midodrine 5 Mg Tablet PO 07/01/24 08:56 PRN PRN Dialysis Multivitamins 1 tab 07/01/23 09:00 07/06/23 08:41 Multivitamin 1 Tab Tablet PO 06/30/24 08:59 1 tab DAILY YESSENIA Administration Non-Formulary Medication 0.63 mg 06/30/23 17:23 Albuterol Sulfate INHALATION 06/29/24 17:22 QID PRN Shortness Of Breath Ondansetron HCl 4 mg 06/30/23 17:23 Ondansetron Odt 4 Mg Tab.Rapdis PO 06/29/24 17:22 Q6H PRN Nausea Ondansetron HCl 4 mg 07/04/23 13:29 Ondansetron 4 Mg/2 Ml Vial IV-PUSH 07/03/24 13:28 Q6H PRN Nausea And Vomiting Oxycodone HCl 5 mg 07/04/23 13:29 07/04/23 14:00 Oxycodone Ir 5 Mg Tablet PO 5 mg Q6HR PRN Administration Pain Scale 1 - 5 Oxycodone HCl 10 mg 07/04/23 13:29 07/06/23 14:30 Oxycodone Ir 5 Mg Tablet PO 10 mg Q6HR PRN Administration Pain Scale 6 - 10 Pramipexole Dihydrochloride 0.5 mg 06/30/23 22:00 07/06/23 22:41 Pramipexole 0.5 Mg Tablet PO 06/29/24 21:59 0.5 mg HS YESSENIA Administration Pregabalin 50 mg 06/30/23 21:00 07/06/23 22:41 Pregabalin 50 Mg Capsule PO 12/27/23 20:59 50 mg BID YESSENIA Administration Senna/Docusate Sodium 2 tab 07/04/23 21:00 07/06/23 22:41 Sennosides/Docusate 8.6-50mg 1 Tab Tablet PO 07/03/24 20:59 2 tab BID YESSENIA Administration Sodium Chloride 10 ml 07/04/23 12:20 07/04/23 22:13 Sodium Chloride 0.9 % 10 Ml Vial.Pf INJECTION 07/03/24 12:19 10 ml Q6H PRN Administration Ativan dilution Sodium Chloride 0 ml 07/05/23 08:31 07/05/23 21:24 Sodium Chloride 0.9 % 10 Ml Syringe IV-PUSH 07/04/24 08:30 20 ml PRN PRN Administration Flush Vitamin D 25 mcg 07/01/23 09:00 07/06/23 08:48 Cholecalciferol 25 Mcg (1,000 Units) Tablet PO 06/30/24 08:59 25 mcg DAILY YESSENIA Administration A&P - Hospitalist Assessment/Plan (1) Closed odontoid fracture: (2) Fall: (3) ESRD (end stage renal disease): (4) Diabetes mellitus with insulin therapy: (5) Primary hypertension: Plan ASSESSMENT AND PLAN: 07/07/2023 Close odontoid fracture Mechanical fall Clinically stable S/p Posterior Cervical Decompression with C1-5 Fixation Dilaudid 0.5 mg every 4 hours as needed Percocet 1 to 2 tablets every 4 hours as needed for pain Neurosurgery is following PT/OT Patient complained of transient blurry vision on the left eye. My bedside ophthalmoscopic eye exam was benign. She does have dry eyes. Will use artificial tears. If she continues to have problems with the vision wemay need ophthalmology evaluation. CHRONIC MEDICAL CONDITIONS: End-stage renal disease: On HD Hypertension: Resume Lopressor Hyperlipidemia: Resume Lipitor CAD: Resume aspirin and Lipitor Depression anxiety: Resume citalopram Foot ulcer: Healing/no fever leukocytosis/x-ray/ no osteo/wound care, Dysphagia: swallow team is following / s/p modified barium study Patient can be transferred out to general medical floor today. She is awaiting to be transferred to a correction facility. DVT prophylaxis Heparin Documented By: Cesario Clifford MD 07/07/23 0939 Signed By: <Electronically signed by Cesario Clifford MD> 07/07/23 0944 [facility] Work Phone: [phone] Progress note Author Seth Weiss [facility] July 07, 2023 7:39am Note Date/Time July 07, 2023 7:39a m [facility] [address] [place] [address] Neurosurgery Progress Note Signed Patient: Cinthya Wilson MR#: [id number] : 1945 Acct:[id number] Age/Sex: 78 / F Adm Date: 4 Loc: Room: [address] [place] [address] Type: ADM IN Attending Dr: Cesario Clifford MD Copies to: ~ Date of Service: 07/07/2023 Subjective Subjective HPI: Patient states her neck hurts. She notes no difference in arms or legs. She isrelieved that surgery is over. Appears more upbeat today. She states she is having some difficulty focusing with the left eye today something different. Exam Physical Exam Vital Signs: Temp Pulse Resp BP Pulse Ox O2 Del Method O2 Flow Rate 98.7 F 69 18 133/60 100 Nasal Cannula 2 07/07/23 03:26 07/07/23 03:26 07/07/23 03:26 07/07/23 03:26 07/07/23 03:26 07/07/23 03:26 07/07/23 03:26 Narrative: Upper and lower extremity strength at baseline Posterior cervical region dry Patient wearing collar appropriately Patient alert oriented and cooperative Objective Lab Results Most Recent Labs: 07/07/23 05:08: Corrected WBC 9.3, Uncorrected WBC Count 9.3, RBC 3.54 L, Hgb 10.2 L, Hct 32.2 L, MCV 90.8, MCH 28.9, MCHC 31.8 L, RDW 18.0 H, Plt Count 216, MPV 8.2, Neut % (Auto) 79.1, Lymph % (Auto) 10.4, Bandera % (Auto) 10.0, Eos % (Auto) 0.4, Baso % (Auto) 0.1, Nucleat RBC Rel Count 0.0, Neut # (Auto) 7.3, Lymph # (Auto) 1.0, Bandera # (Auto) 0.9 H, Eos # (Auto) 0.0, Baso # (Auto) 0.0, PHA Creatinine Clear 10.38, Sodium 135 L, Potassium 4.3, Chloride 94 L, Carbon Dioxide 27.0, Anion Gap 18.3 H, BUN 48 H, Creatinine 4.38 H D, Est GFR (CKD-EPI)9.921, Glucose 192 H, Calcium 8.7, Phosphorus 3.8, Magnesium 2.1, Total Bilirubin 0.3, AST 18, ALT 3 L, Alkaline Phosphatase 148 H, Total Protein 5.6 L,Albumin 3.1 L, Globulin 2.5, Albumin/Globulin Ratio 1.2 07/06/23 20:31: POC Glucose 313 07/06/23 11:34: POC Glucose 249 07/06/23 08:37: POC Glucose 185 Assessment/Plan Assessment/Plan (1) Closed odontoid fracture: Qualifiers: Encounter type: initial encounter Qualified Code(s): S12.100A - Unspecified displaced fracture of second cervical vertebra, initial encounter for closed fracture (2) Fall: (3) ESRD (end stage renal disease): (4) Diabetes mellitus with insulin therapy: (5) Primary hypertension: Plan I am not sure what to make of the eye but I passed this onto the hospitalist nurse. Patient continues to do well from her surgical stabilization. I think she again would be a good rehab candidate. Documented By: Seth Weiss MD 07/07/23 0738 Signed By: <Electronically signed by MD Seth Weiss> 07/07/23 0739 [facility] Work Phone: 1(474) 491-999905-26-2024 Progress note Author Cesario Clifford [facility] July 06, 2023 3:54pm Note Date/Time July 06, 2023 3:54p m [facility] [address] [place] [address] Hospitalist Progress Note Signed Patient: Cinthya Wilson MR#: [id number] : 1945 Acct:[id number] Age/Sex: 78 / F Adm Date: 4 Loc: Room: 2Q0822-3 Type: ADM IN Attending Dr: Cesario Clifford MD Copies to: ~ Date of Service: 07/06/2023 Subjective Subjective Narrative: Patient was seen at bedside. She is doing well. She does not have any neuro deficits. She is on [place] collar. Patient remain in ICU bed but not in ICU status. This is for floor convenience. She will be moved to general medical floor sometime this afternoon. ON ADMISSION: 78-year-old white female past medical history of hypertension, hyperlipidemia, diabetes type 2, end-stage renal disease on hemodialysis, chronic COPD, sleep apnea GERD, anxiety, sleep apnea, and chronic neck and back pain who presented to emergency room with generalized weakness, generalized pain and fall. She hasbeen complaining of neck and back pain for the last 3 days. She has episode of fall 3 days ago. She has been complaining of blurred vision for no double vision no dizziness. No slurred speech. No headache. no upper extremity or lower extremity weakness. No upper extremity or lower extremity numbness or tingling. She denies having dizziness. No syncopal episode. She denies any chest pain or shortness of breath. She denies having abdominal pain. No diarrhea. She denies having dysuria, hematuria, frequency. No hematemesis, melena or hematochezia. CT brain no acute intracranial bleed. CTA neck showed stable carotid plaque and stenosis and occlusion of the right vertebral artery unchanged with extensive postoperative and degenerative changes at the cervical spine and NEW FRACTURE AT THE BASE OF THE ODONTOID IS SEEN. Exam Physical Exam Vital Signs: Temp Pulse Resp BP Pulse Ox O2 Del Method O2 Flow Rate 98.1 F 66 20 136/75 99 Nasal Cannula 2 07/06/23 11:32 07/06/23 12:10 07/06/23 12:10 07/06/23 11:32 07/06/23 11:32 07/06/23 11:32 07/06/23 11:32 Objective Lab Results 07/04/23 13:04 05/26/24 03:59 Meds Allergies and Active Meds Allergies lisinopril Allergy (Unknown, Verified 06/30/23 12:32) Cough gabapentin Allergy (Verified 06/30/23 12:32) Swelling of Lip/Tongue/Throat Active Meds: Active Medications Generic Name Dose Route Start Last Admin Trade Name Freq PRN Reason Stop Dose Admin Acetaminophen 650 mg 07/04/23 13:29 Acetaminophen 325 Mg Tablet PO 07/03/24 13:28 Q4H PRN Mild Pain Aspirin 81 mg 07/01/23 09:00 07/06/23 08:41 Aspirin 81 Mg Tablet. PO 06/30/24 08:59 81 mg DAILY YESSENIA Administration Atorvastatin Calcium 40 mg 06/30/23 21:00 07/05/23 21:17 Atorvastatin 40 Mg Tablet PO 06/29/24 20:59 40 mg QPM YESSENIA Administration Bisacodyl 10 mg 06/30/23 18:02 Bisacodyl 5 Mg Tablet. PO 06/29/24 18:01 DAILY PRN Constipation Budesonide/Formoterol Fumarate 2 puff 06/30/23 21:00 07/06/23 08:04 Budesonide/Formoterol 80-4.5 Mcg 60 Puff/6.9 Gm Hfa.Aer.Ad INHALATION 06/29/24 20:59 2 puff BID YESSENIA Administration Buspirone HCl 10 mg 06/30/23 21:00 07/06/23 08:41 Buspirone 10 Mg Tablet PO 06/29/24 20:59 10 mg BID YESSENIA Administration Calcium Acetate 667 mg 07/01/23 08:00 07/06/23 11:35 Calcium Acetate 667 Mg Capsule PO 06/30/24 07:59 667 mg TID.WITH.MEALS YESSENIA Administration Citalopram Hydrobromide 20 mg 07/01/23 09:00 07/06/23 08:48 Citalopram 20 Mg Tablet PO 06/30/24 08:59 20 mg DAILY YESSENIA Administration Dexamethasone Sodium Phosphate 1 mg 07/04/23 14:00 07/06/23 14:31 Dexamethasone Sod Phosphate 4 Mg/Ml Vial IV-PUSH 07/07/23 13:59 1 mg QID YESSENIA Administration Taper Diclofenac Sodium 4 gm 06/30/23 18:00 07/06/23 14:31 Diclofenac Sodium 1% Gel 100 Gm Tube TOPICAL 06/29/24 17:59 4 gm QID YESSENIA Administration Diphenhydramine HCl 25 mg 07/04/23 13:29 Diphenhydramine 25 Mg Capsule PO 07/03/24 13:28 Q6H PRN Itching Docusate Sodium 100 mg 06/30/23 21:00 07/06/23 08:41 Docusate 100 Mg Capsule PO 06/29/24 20:59 Not Given BID YESSENIA Famotidine 20 mg 07/04/23 21:00 07/06/23 08:42 Famotidine/Pf 20 Mg/2 Ml Vial IV-PUSH 07/03/24 20:59 20 mg Q12HR YESSENIA Administration Hydromorphone HCl 1 mg 07/04/23 13:29 07/05/23 00:52 Hydromorphone 1 Mg/Ml Syringe IV-PUSH 1 mg Q2H PRN Administration Pain Hydromorphone HCl 0.5 mg 07/04/23 13:29 07/05/23 11:42 Hydromorphone 0.5 Mg/0.5 Ml Syringe IV-PUSH 0.5 mg Q2H PRN Administration Pain Potassium Chloride/Sodium Chloride 1,000 mls @ 100 mls/hr 07/04/23 13:29 07/06/23 07:47 0.9 % Nacl-20 Meq Kcl IV 07/03/24 13:28 Not Given .Q10H YESSENIA Sodium Chloride 1,000 mls @ 0 mls/hr 07/05/23 08:31 07/05/23 11:45 0.9% Sodium Chloride 1,000 Ml MISCELLANE 07/04/24 08:30 Infused .Q0M PRN Infusion Dialysis As Directed Insulin Aspart 0 units 06/30/23 22:00 07/06/23 11:36 Insulin Aspart 300 Units/3 Ml Insuln.Pen SUBCUT 06/29/24 21:59 3 units TID.WM.HS YESSENIA Administration Protocol Ipratropium [place] 0.5 mg 07/04/23 16:00 07/06/23 12:03 Ipratropium [place] 0.5 Mg/2.5 Ml Vial.Neb INHALATION 06/29/24 19:59 0.5 mg QID.RESP YESSENIA Administration Lidocaine 1 patch 06/30/23 21:00 07/06/23 08:42 Lidocaine 4% Adh..Patch TOPICAL 06/29/24 20:59 1 patch BID YESSENIA Administration Loratadine 5 mg 07/01/23 09:00 07/06/23 08:42 Loratadine 10 Mg Tablet PO 06/30/24 08:59 Not Given DAILY YESSENIA Lorazepam 0.25 mg 07/04/23 12:20 Lorazepam 2 Mg/Ml Vial IV-PUSH 12/31/23 12:19 Q6H PRN Pain Lorazepam 0.25 mg 07/04/23 13:29 Lorazepam 0.5 Mg Tablet PO 12/31/23 13:28 Q8H PRN Pain Lubiprostone 8 mcg 06/30/23 21:00 07/06/23 08:41 Lubiprostone 8 Mcg Capsule PO 06/29/24 20:59 8 mcg BID YESSENIA Administration Melatonin 5 mg 06/30/23 18:02 Melatonin 5 Mg Tablet PO 06/29/24 18:01 QHS PRN Insomnia Metoprolol Tartrate 12.5 mg 07/01/23 09:00 07/06/23 08:41 Metoprolol Tartrate 12.5 Mg Tablet PO 06/30/24 08:59 12.5 mg DAILY YESSENIA Administration Mexiletine HCl 200 mg 06/30/23 22:00 07/06/23 14:30 Mexiletine 200 Mg Capsule PO 06/29/24 21:59 200 mg Q8HR YESSENIA Administration Midodrine 5 mg 06/30/23 17:23 07/02/23 10:32 Midodrine 5 Mg Tablet PO 06/29/24 17:22 5 mg DAILY PRN Administration low bp Midodrine 5 mg 07/01/23 07:00 07/06/23 11:36 Midodrine 5 Mg Tablet PO 06/30/24 06:59 5 mg TID.7A.12P.5P YESSENIA Administration Midodrine 5 mg 07/02/23 08:57 Midodrine 5 Mg Tablet PO 07/01/24 08:56 PRN PRN Dialysis Multivitamins 1 tab 07/01/23 09:00 07/06/23 08:41 Multivitamin 1 Tab Tablet PO 06/30/24 08:59 1 tab DAILY YESSENIA Administration Non-Formulary Medication 0.63 mg 06/30/23 17:23 Albuterol Sulfate INHALATION 06/29/24 17:22 QID PRN Shortness Of Breath Ondansetron HCl 4 mg 06/30/23 17:23 Ondansetron Odt 4 Mg Tab.Rapdis PO 06/29/24 17:22 Q6H PRN Nausea Ondansetron HCl 4 mg 07/04/23 13:29 Ondansetron 4 Mg/2 Ml Vial IV-PUSH 07/03/24 13:28 Q6H PRN Nausea And Vomiting Oxycodone HCl 5 mg 07/04/23 13:29 07/04/23 14:00 Oxycodone Ir 5 Mg Tablet PO 5 mg Q6HR PRN Administration Pain Scale 1 - 5 Oxycodone HCl 10 mg 07/04/23 13:29 07/06/23 14:30 Oxycodone Ir 5 Mg Tablet PO 10 mg Q6HR PRN Administration Pain Scale 6 - 10 Pramipexole Dihydrochloride 0.5 mg 06/30/23 22:00 07/05/23 21:18 Pramipexole 0.5 Mg Tablet PO 06/29/24 21:59 0.5 mg HS YESSENIA Administration Pregabalin 50 mg 06/30/23 21:00 07/06/23 08:41 Pregabalin 50 Mg Capsule PO 12/27/23 20:59 50 mg BID YESSENIA Administration Senna/Docusate Sodium 2 tab 07/04/23 21:00 07/06/23 08:42 Sennosides/Docusate 8.6-50mg 1 Tab Tablet PO 07/03/24 20:59 Not Given BID YESSENIA Sodium Chloride 10 ml 07/04/23 12:20 07/04/23 22:13 Sodium Chloride 0.9 % 10 Ml Vial.Pf INJECTION 07/03/24 12:19 10 ml Q6H PRN Administration Ativan dilution Sodium Chloride 10 ml 07/04/23 13:29 07/05/23 21:18 Sodium Chloride 0.9 % 10 Ml Vial.Pf INJECTION 07/03/24 13:28 10 ml PRN PRN Administration To dilute Pepcid Sodium Chloride 0 ml 07/05/23 08:31 07/05/23 21:24 Sodium Chloride 0.9 % 10 Ml Syringe IV-PUSH 07/04/24 08:30 20 ml PRN PRN Administration Flush Vitamin D 25 mcg 07/01/23 09:00 07/06/23 08:48 Cholecalciferol 25 Mcg (1,000 Units) Tablet PO 06/30/24 08:59 25 mcg DAILY YESSENIA Administration A&P - Hospitalist Assessment/Plan (1) Closed odontoid fracture: (2) Fall: (3) ESRD (end stage renal disease): (4) Diabetes mellitus with insulin therapy: (5) Primary hypertension: Plan ASSESSMENT AND PLAN: 07/06/2023 Close odontoid fracture Mechanical fall Clinically stable S/p Posterior Cervical Decompression with C1-5 Fixation Dilaudid 0.5 mg every 4 hours as needed Percocet 1 to 2 tablets every 4 hours as needed for pain Neurosurgery is following PT/OT CHRONIC MEDICAL CONDITIONS: End-stage renal disease: On HD Hypertension: Resume Lopressor Hyperlipidemia: Resume Lipitor CAD: Resume aspirin and Lipitor Depression anxiety: Resume citalopram Foot ulcer: Healing/no fever leukocytosis/x-ray/ no osteo/wound care, Dysphagia: swallow team is following / s/p modified barium study Patient can be transferred out to general medical floor today. She is awaiting to be transferred to a correction facility. DVT prophylaxis Heparin Documented By: Cesario Clifford MD 07/06/23 155 Signed By: <Electronically signed by Cesario Clifford MD> 07/06/231553 [facility] Work Phone: 1(406) 719-557305-26-2024 Progress note Author Wood Zavala [facility] July 06, 2023 11:41am Note Date/Time July 06, 2023 11:41 am [facility] [address] [place] [address] Nephrology Progress Note Signed Patient: Cinthya Wilson MR#: [id number] : 1945 Acct:[id number] Age/Sex: 78 / F Adm Date: 4 Loc: Room: [address] [place] [address] Type: ADM IN Attending Dr: Cesario Clifford MD Copies to: ~ Date of Service: 07/06/2023 Subjective Subjective Narrative: This is a 78-year-old female well-known to to me from outpatient [facility] unit was presented to the emergency room after her dialysis due to the neck pain. 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 Her other comorbidities are CAD s/p PCI, COPD, chronic hypoxic diastolic failure, cardiac arrhythmia s/p AICD and dyslipidemia. Reported as she fell 3 days ago and was having excruciating pain. In the emergency room she had a CT head and neck which showed no acute intracranial bleed or stroke, stable carotid plaque and stenosis and occlusion of the right vertebral artery, new fracture at the base of the odontoid. Patient was admitted for further workup and neurosurgery was consulted. Nephrology is consulted for ESRD management during the hospital stay. Interval history Patient was seen and examined at the bedside. She ate her breakfast this morning and slept well last night. She reported she had a large bowel movement. She denies any chest pain palpitation cough nausea vomiting diarrhea or shortness of breath. Exam Physical Exam Vital Signs: Temp Pulse Resp BP Pulse Ox O2 Del Method O2 Flow Rate 98.1 F 77 18 136/75 99 Nasal Cannula 2 07/06/23 11:32 07/06/23 11:32 07/06/23 11:32 07/06/23 11:32 07/06/23 11:32 07/06/23 11:32 07/06/23 11:32 Narrative: General: Appears comfortable and not in distress Heart: S1-S2, no rub Lung: Bilateral air entry, no wheezing or crackles Abdomen: Soft, positive bowel sounds Extremities: No edema, no cyanosis Head: Atraumatic, normocephalic Ear: No gross hearing Deficit or external ear redness Eyes: No pallor or redness Neck: No JVD or visible mass Skin: No rashes , warm to touch [employer]: Awake,Alert, following simple command Musculoskeletal: No swelling or limitation of movement of the large joints Psychiatric: Cooperative, normal mood and affect Objective Intake and Output I&O: Intake & Output 07/03/23 07/04/23 07/05/23 07/06/23 23:59 23:59 23:59 23:59 Intake Total 1720 / 1720 1090 / 1090 833 / 833 50 / 50 Output Total 0 / 0 0 / 0 3501 / 3501 Balance 1720 / 1720 1090 / 1090 -2668 / -2668 50 / 50 Weight 62.5 kg 62.6 kg 65.7 kg 61.9 kg Meds and Allergies Meds: Active Medications Acetaminophen (Acetaminophen 325 Mg Tablet) 650 mg PO Q4H PRN PRN Reason: Mild Pain Stop: 07/03/24 13:28 Aspirin (Aspirin 81 Mg Tablet.) 81 mg PO DAILY [facility] Stop: 06/30/24 08:59 Last Admin: 07/06/23 08:41 Dose: 81 mg Atorvastatin Calcium (Atorvastatin 40 Mg Tablet) 40 mg PO QPM YESSENIA Stop: 06/29/24 20:59 Last Admin: 07/05/23 21:17 Dose: 40 mg Bisacodyl (Bisacodyl 5 Mg Tablet.) 10 mg PO DAILY PRN PRN Reason: Constipation Stop: 06/29/24 18:01 Budesonide/Formoterol Fumarate (Budesonide/Formoterol 80-4.5 Mcg 60 Puff/6.9 Gm Hfa.Aer.Ad) 2 puff INHALATION BID [facility] Stop: 06/29/24 20:59 Last Admin: 07/06/23 08:04 Dose: 2 puff Buspirone HCl (Buspirone 10 Mg Tablet) 10 mg PO BID [facility] Stop: 06/29/24 20:59 Last Admin: 07/06/23 08:41 Dose: 10 mg Calcium Acetate (Calcium Acetate 667 Mg Capsule) 667 mg PO TID.WITH.MEALS [facility] Stop: 06/30/24 07:59 Last Admin: 07/06/23 11:35 Dose: 667 mg Citalopram Hydrobromide (Citalopram 20 Mg Tablet) 20 mg PO DAILY [facility] Stop: 06/30/24 08:59 Last Admin: 07/06/23 08:48 Dose: 20 mg Dexamethasone Sodium Phosphate (Dexamethasone Sod Phosphate 4 Mg/Ml Vial) 2 mg IV-PUSH QID [facility]; Taper Stop: 07/07/23 13:59 Last Admin: 07/06/23 08:42 Dose: 2 mg Diclofenac Sodium (Diclofenac Sodium 1% Gel 100 Gm Tube) 4 gm TOPICAL QID [facility] Stop: 06/29/24 17:59 Last Admin: 07/06/23 08:42 Dose: 4 gm Diphenhydramine HCl (Diphenhydramine 25 Mg Capsule) 25 mg PO Q6H PRN PRN Reason: Itching Stop: 07/03/24 13:28 Docusate Sodium (Docusate 100 Mg Capsule) 100 mg PO BID [facility] Stop: 06/29/24 20:59 Last Admin: 07/06/23 08:41 Dose: Not Given Famotidine (Famotidine/Pf 20 Mg/2 Ml Vial) 20 mg IV-PUSH Q12HR [facility] Stop: 07/03/24 20:59 Last Admin: 07/06/23 08:42 Dose: 20 mg Hydromorphone HCl (Hydromorphone 1 Mg/Ml Syringe) 1 mg IV-PUSH Q2H PRN PRN Reason: Pain Last Admin: 07/05/23 00:52 Dose: 1 mg Hydromorphone HCl (Hydromorphone 0.5 Mg/0.5 Ml Syringe) 0.5 mg IV-PUSH Q2H PRN PRN Reason: Pain Last Admin: 07/05/23 11:42 Dose: 0.5 mg Potassium Chloride/Sodium Chloride (0.9 % Nacl-20 Meq Kcl) 1,000 mls @ 100 mls/hr IV .Q10H [facility] Stop: 07/03/24 13:28 Last Admin: 07/06/23 07:47 Dose: Not Given Sodium Chloride (0.9% Sodium Chloride 1,000 Ml) 1,000 mls @ 0 mls/hr MISCELLANE.Q0M PRN PRN Reason: Dialysis Stop: 07/04/24 08:30 Last Infusion: 07/05/23 11:45 Dose: Infused Insulin Aspart (Insulin Aspart 300 Units/3 Ml Insuln.Pen) 0 units SUBCUT TID.WM.HS [facility]; Protocol Stop: 06/29/24 21:59 Last Admin: 07/06/23 11:36 Dose: 3 units Ipratropium [place] (Ipratropium [place] 0.5 Mg/2.5 Ml Vial.Neb) 0.5 mg INHALATION QID.RESP [facility] Stop: 06/29/24 19:59 Last Admin: 07/06/23 08:04 Dose: 0.5 mg Lidocaine (Lidocaine 4% Adh..Patch) 1 patch TOPICAL BID [facility] Stop: 06/29/24 20:59 Last Admin: 07/06/23 08:42 Dose: 1 patch Loratadine (Loratadine 10 Mg Tablet) 5 mg PO DAILY [facility] Stop: 06/30/24 08:59 Last Admin: 07/06/23 08:42 Dose: Not Given Lorazepam (Lorazepam 2 Mg/Ml Vial) 0.25 mg IV-PUSH Q6H PRN PRN Reason: Pain Stop: 12/31/23 12:19 Lorazepam (Lorazepam 0.5 Mg Tablet) 0.25 mg PO Q8H PRN PRN Reason: Pain Stop: 12/31/23 13:28 Lubiprostone (Lubiprostone 8 Mcg Capsule) 8 mcg PO BID YESSENIA Stop: 06/29/24 20:59 Last Admin: 07/06/23 08:41 Dose: 8 mcg Melatonin (Melatonin 5 Mg Tablet) 5 mg PO QHS PRN PRN Reason: Insomnia Stop: 06/29/24 18:01 Metoprolol Tartrate (Metoprolol Tartrate 12.5 Mg Tablet) 12.5 mg PO DAILY YESSENIA Stop: 06/30/24 08:59 Last Admin: 07/06/23 08:41 Dose: 12.5 mg Mexiletine HCl (Mexiletine 200 Mg Capsule) 200 mg PO Q8HR YESSENIA Stop: 06/29/24 21:59 Last Admin: 07/06/23 05:16 Dose: 200 mg Midodrine (Midodrine 5 Mg Tablet) 5 mg PO DAILY PRN PRN Reason: low bp Stop: 06/29/24 17:22 Last Admin: 07/02/23 10:32 Dose: 5 mg Midodrine (Midodrine 5 Mg Tablet) 5 mg PO TID.7A.12P.5P YESSENIA Stop: 06/30/24 06:59 Last Admin: 07/06/23 11:36 Dose: 5 mg Midodrine (Midodrine 5 Mg Tablet) 5 mg PO PRN PRN PRN Reason: Dialysis Stop: 07/01/24 08:56 Multivitamins (Multivitamin 1 Tab Tablet) 1 tab PO DAILY YESSENIA Stop: 06/30/24 08:59 Last Admin: 07/06/23 08:41 Dose: 1 tab Non-Formulary Medication (Albuterol Sulfate) 0.63 mg INHALATION QID PRN PRN Reason: Shortness Of Breath Stop: 06/29/24 17:22 Ondansetron HCl (Ondansetron Odt 4 Mg Tab.Rapdis) 4 mg PO Q6H PRN PRN Reason: Nausea Stop: 06/29/24 17:22 Ondansetron HCl (Ondansetron 4 Mg/2 Ml Vial) 4 mg IV-PUSH Q6H PRN PRN Reason: Nausea And Vomiting Stop: 07/03/24 13:28 Oxycodone HCl (Oxycodone Ir 5 Mg Tablet) 5 mg PO Q6HR PRN PRN Reason: Pain Scale 1 - 5 Last Admin: 07/04/23 14:00 Dose: 5 mg Oxycodone HCl (Oxycodone Ir 5 Mg Tablet) 10 mg PO Q6HR PRN PRN Reason: Pain Scale 6 - 10 Last Admin: 07/06/23 05:16 Dose: 10 mg Pramipexole Dihydrochloride (Pramipexole 0.5 Mg Tablet) 0.5 mg PO HS YESSENIA Stop: 06/29/24 21:59 Last Admin: 07/05/23 21:18 Dose: 0.5 mg Pregabalin (Pregabalin 50 Mg Capsule) 50 mg PO BID YESSENIA Stop: 12/27/23 20:59 Last Admin: 07/06/23 08:41 Dose: 50 mg Senna/Docusate Sodium (Sennosides/Docusate 8.6-50mg 1 Tab Tablet) 2 tab PO BID YESSENIA Stop: 07/03/24 20:59 Last Admin: 07/06/23 08:42 Dose: Not Given Sodium Chloride (Sodium Chloride 0.9 % 10 Ml Vial.Pf) 10 ml INJECTION Q6H PRN PRN Reason: Ativan dilution Stop: 07/03/24 12:19 Last Admin: 07/04/23 22:13 Dose: 10 ml Sodium Chloride (Sodium Chloride 0.9 % 10 Ml Vial.Pf) 10 ml INJECTION PRN PRN PRN Reason: To dilute Pepcid Stop: 07/03/24 13:28 Last Admin: 07/05/23 21:18 Dose: 10 ml Sodium Chloride (Sodium Chloride 0.9 % 10 Ml Syringe) 0 ml IV-PUSH PRN PRN PRN Reason: Flush Stop: 07/04/24 08:30 Last Admin: 07/05/23 21:24 Dose: 20 ml Vitamin D (Cholecalciferol 25 Mcg (1,000 Units) Tablet) 25 mcg PO DAILY YESSENIA Stop: 06/30/24 08:59 Last Admin: 07/06/23 08:48 Dose: 25 mcg Allergies lisinopril Allergy (Unknown, Verified 06/30/23 12:32) Cough gabapentin Allergy (Verified 06/30/23 12:32) Swelling of Lip/Tongue/Throat Results - Nephrology Labs 07/04/23 13:04 07/06/23 03:59 Labs: 07/06/23 03:59 BUN 27 H Creatinine 3.36 H D Phosphorus 4.3 Albumin 3.2 L Radiology Impressions Impressions - last 24 hours: Any impression(s) listed above is documentation that was entered by the reading physician into a diagnostic report(s) for Cinthya Wilson. I have reviewed the report(s) and am incorporating any findings in the treatment plan of this patient where applicable. A&P - Nephrology Assessment/Plan (1) Odontoid fracture: Assessment/Problem Details: Patient presents after a fall and was found to have odontoid fracture. She underwent the surgery on 07/04/2023. (2) ESRD (end stage renal disease): Assessment/Problem Details: She has a ESRD due to the hypertensive nephrosclerosis and diabetic nephropathy. She currently goes to the [facility] dialysis unit 3 times a week on MWF schedule. (3) Type 2 diabetes mellitus with diabetic chronic kidney disease: Assessment/Problem Details: She has insulin-dependent type 2 diabetes mellitus. (4) Secondary hyperparathyroidism: Assessment/Problem Details: She has secondary hyperparathyroidism due to the ESRD and hyperphosphatemia. She currently takes calcium acetate at home. 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 She takes midodrine for intradialytic hypotension. Plan * No need for dialysis today. Next dialysis will be tomorrow. * Continue DM management as per the primary hospitalist team. * Continue midodrine for intradialytic hypotension. * Continue management of the odontoid fracture as per the neurosurgery. * Continue home dose of the calcium acetate. * Check renal function in AM. Monitor CBC. Documented By: Wood Zavala MD 07/06/23 1140 Signed By: <Electronically signed by Wood Zavala MD> 07/06/23 1141 [facility] Work Phone: [phone]) 816-976005-26-2024 Progress note Author Seth Weiss [facility] July 06, 2023 11:14am Note Date/Time July 06, 2023 11:14 am [facility] [address] [place] [address] Neurosurgery Progress Note Signed Patient: Cinthya Wilson MR#: [id number] : 1945 Acct:[id number] Age/Sex: 78 / F Adm Date: 4 Loc: Room: [address] [place] [address] Type: ADM IN Attending Dr: Cesario Clifford MD Copies to: ~ Date of Service: 07/06/2023 Subjective Subjective HPI: Patient states her neck hurts. She notes no difference in arms or legs. She isrelieved that surgery is over. Appears more upbeat today Exam Physical Exam Vital Signs: Temp Pulse Resp BP Pulse Ox O2 Del Method O2 Flow Rate 98 F 69 20 129/79 100 Room Air 2 07/06/23 08:00 07/06/23 08:11 07/06/23 08:11 07/06/23 08:00 07/06/23 08:00 07/06/23 08:03 07/06/23 08:00 Narrative: Upper and lower extremity strength at baseline Posterior cervical region dry Patient wearing collar appropriately Patient alert oriented and cooperative Objective Lab Results Most Recent Labs: 07/06/23 08:37: POC Glucose 185 07/06/23 03:59: PHA Creatinine Clear 13.29, Sodium 134 L D, Potassium 3.8 D, Chloride 95 L, Carbon Dioxide 28.2, Anion Gap 14.6, BUN 27 H, Creatinine 3.36 H D, Est GFR (CKD-EPI) 13.636, Glucose 225 H, Calcium 8.9, Phosphorus 4.3, Albumin3.2 L 07/05/23 22:10: POC Glucose 320, POC Glucose Comment Glu2: cleaned meter 07/05/23 16:32: POC Glucose 250 07/05/23 13:54: POC Glucose 164, POC Glucose Comment Glu2: cleaned meter Assessment/Plan Assessment/Plan (1) Closed odontoid fracture: Qualifiers: Encounter type: initial encounter Qualified Code(s): S12.100A - Unspecified displaced fracture of second cervical vertebra, initial encounter for closed fracture (2) Fall: (3) ESRD (end stage renal disease): (4) Diabetes mellitus with insulin therapy: (5) Primary hypertension: Plan Continuing to do well. She may be transferred to the floor. [address]. would be a good location. I believe this patient will need inpatient rehab. Documented By: Seth Weiss MD 07/06/231112 Signed By: <Electronically signed by MD Seth Weiss> 07/06/231 [facility] Work Phone: 1(807) 947-728405-25-2024 Progress note Author Cesario Clifford [facility] July 05, 2023 6:52pm Note Date/Time July 05, 2023 6:52p m [facility] [address] [place] [address] Hospitalist Progress Note Signed Patient: Cinthya Wilson MR#: [id number] : 1945 Acct:[id number] Age/Sex: 78 / F Adm Date: 4 Loc: Room: [address] [place] [address] Type: ADM IN Attending Dr: Cesario Clifford MD Copies to: ~ Date of Service: 07/05/2023 Subjective Subjective Narrative: Patient was seen at bedside. She is doing well. She does not have any neuro deficits. She is on [place] collar. Patient had hemodialysis this morning. She will be able to come out from the ICU to general medical floor.. ON ADMISSION: 78-year-old white female past medical history of hypertension, hyperlipidemia, diabetes type 2, end-stage renal disease on hemodialysis, chronic COPD, sleep apnea GERD, anxiety, sleep apnea, and chronic neck and back pain who presented to emergency room with generalized weakness, generalized pain and fall. She hasbeen complaining of neck and back pain for the last 3 days. She has episode of fall 3 days ago. She has been complaining of blurred vision for no double vision no dizziness. No slurred speech. No headache. no upper extremity or lower extremity weakness. No upper extremity or lower extremity numbness or tingling. She denies having dizziness. No syncopal episode. She denies any chest pain or shortness of breath. She denies having abdominal pain. No diarrhea. She denies having dysuria, hematuria, frequency. No hematemesis, melena or hematochezia. CT brain no acute intracranial bleed. CTA neck showed stable carotid plaque and stenosis and occlusion of the right vertebral artery unchanged with extensive postoperative and degenerative changes at the cervical spine and NEW FRACTURE AT THE BASE OF THE ODONTOID IS SEEN. Exam Physical Exam Vital Signs: Temp Pulse Resp BP Pulse Ox O2 Del Method O2 Flow Rate 97.4 F L 81 22 138/63 98 Nasal Cannula 2 07/05/23 14:00 07/05/23 16:00 07/05/23 16:00 07/05/23 16:00 07/05/23 16:00 07/05/23 16:00 07/05/23 16:00 Objective Lab Results 07/04/23 13:04 07/05/23 04:21 Meds Allergies and Active Meds Allergies lisinopril Allergy (Unknown, Verified 06/30/23 12:32) Cough gabapentin Allergy (Verified 06/30/23 12:32) Swelling of Lip/Tongue/Throat Active Meds: Active Medications Generic Name Dose Route Start Last Admin Trade Name Freq PRN Reason Stop Dose Admin Acetaminophen 650 mg 07/04/23 13:29 Acetaminophen 325 Mg Tablet PO 07/03/24 13:28 Q4H PRN Mild Pain Aspirin 81 mg 07/01/23 09:00 07/05/23 14:07 Aspirin 81 Mg Tablet. PO 06/30/24 08:59 81 mg DAILY YESSENIA Administration Atorvastatin Calcium 40 mg 06/30/23 21:00 07/04/23 22:12 Atorvastatin 40 Mg Tablet PO 06/29/24 20:59 40 mg QPM YESSENIA Administration Bisacodyl 10 mg 06/30/23 18:02 Bisacodyl 5 Mg Tablet. PO 06/29/24 18:01 DAILY PRN Constipation Budesonide/Formoterol Fumarate 2 puff 06/30/23 21:00 07/05/23 07:19 Budesonide/Formoterol 80-4.5 Mcg 60 Puff/6.9 Gm Hfa.Aer.Ad INHALATION 06/29/24 20:59 2 puff BID YESSENIA Administration Buspirone HCl 10 mg 06/30/23 21:00 07/05/23 14:07 Buspirone 10 Mg Tablet PO 06/29/24 20:59 10 mg BID YESSENIA Administration Calcium Acetate 667 mg 07/01/23 08:00 07/05/23 16:30 Calcium Acetate 667 Mg Capsule PO 06/30/24 07:59 667 mg TID.WITH.MEALS YESSENIA Administration Citalopram Hydrobromide 20 mg 07/01/23 09:00 07/05/23 14:07 Citalopram 20 Mg Tablet PO 06/30/24 08:59 20 mg DAILY YESSENIA Administration Dexamethasone Sodium Phosphate 2 mg 07/04/23 14:00 07/05/23 18:19 Dexamethasone Sod Phosphate 4 Mg/Ml Vial IV-PUSH 07/07/23 13:59 2 mg QID YESSENIA Administration Taper Diclofenac Sodium 4 gm 06/30/23 18:00 07/05/23 18:19 Diclofenac Sodium 1% Gel 100 Gm Tube TOPICAL 06/29/24 17:59 Not Given QID YESSENIA Diphenhydramine HCl 25 mg 07/04/23 13:29 Diphenhydramine 25 Mg Capsule PO 07/03/24 13:28 Q6H PRN Itching Docusate Sodium 100 mg 06/30/23 21:00 07/05/23 14:08 Docusate 100 Mg Capsule PO 06/29/24 20:59 100 mg BID YESSENIA Administration Famotidine 20 mg 07/04/23 21:00 07/05/23 08:29 Famotidine/Pf 20 Mg/2 Ml Vial IV-PUSH 07/03/24 20:59 Not Given Q12HR [facility] Hydromorphone HCl 1 mg 07/04/23 13:29 07/05/23 00:52 Hydromorphone 1 Mg/Ml Syringe IV-PUSH 1 mg Q2H PRN Administration Pain Hydromorphone HCl 0.5 mg 07/04/23 13:29 07/05/23 11:42 Hydromorphone 0.5 Mg/0.5 Ml Syringe IV-PUSH 0.5 mg Q2H PRN Administration Pain Potassium Chloride/Sodium Chloride 1,000 mls @ 100 mls/hr 07/04/23 13:29 07/05/23 00:32 0.9 % Nacl-20 Meq Kcl IV 07/03/24 13:28 Not Given .Q10H YESSENIA Sodium Chloride 1,000 mls @ 0 mls/hr 07/05/23 08:31 07/05/23 11:45 0.9% Sodium Chloride 1,000 Ml MISCELLANE 07/04/24 08:30 Infused .Q0M PRN Infusion Dialysis As Directed Insulin Aspart 0 units 06/30/23 22:00 07/05/23 16:32 Insulin Aspart 300 Units/3 Ml Insuln.Pen SUBCUT 06/29/24 21:59 5 units TID.WM.HS YESSENIA Administration Protocol Ipratropium [place] 0.5 mg 07/04/23 16:00 07/05/23 15:15 Ipratropium [place] 0.5 Mg/2.5 Ml Vial.Neb INHALATION 06/29/24 19:59 0.5 mg QID.RESP YESSENIA Administration Lidocaine 1 patch 06/30/23 21:00 07/05/23 08:29 Lidocaine 4% Adh..Patch TOPICAL 06/29/24 20:59 Not Given BID YESSENIA Loratadine 5 mg 07/01/23 09:00 07/05/23 08:29 Loratadine 10 Mg Tablet PO 06/30/24 08:59 Not Given DAILY YESSENIA Lorazepam 0.25 mg 07/04/23 12:20 Lorazepam 2 Mg/Ml Vial IV-PUSH 12/31/23 12:19 Q6H PRN Pain Lorazepam 0.25 mg 07/04/23 13:29 Lorazepam 0.5 Mg Tablet PO 12/31/23 13:28 Q8H PRN Pain Lubiprostone 8 mcg 06/30/23 21:00 07/05/23 14:08 Lubiprostone 8 Mcg Capsule PO 06/29/24 20:59 8 mcg BID YESSENIA Administration Melatonin 5 mg 06/30/23 18:02 Melatonin 5 Mg Tablet PO 06/29/24 18:01 QHS PRN Insomnia Metoprolol Tartrate 12.5 mg 07/01/23 09:00 07/05/23 14:07 Metoprolol Tartrate 12.5 Mg Tablet PO 06/30/24 08:59 12.5 mg DAILY YESSENIA Administration Mexiletine HCl 200 mg 06/30/23 22:00 07/05/23 14:10 Mexiletine 200 Mg Capsule PO 06/29/24 21:59 200 mg Q8HR YESSENIA Administration Midodrine 5 mg 06/30/23 17:23 07/02/23 10:32 Midodrine 5 Mg Tablet PO 06/29/24 17:22 5 mg DAILY PRN Administration low bp Midodrine 5 mg 07/01/23 07:00 07/05/23 16:30 Midodrine 5 Mg Tablet PO 06/30/24 06:59 5 mg TID.7A.12P.5P YESSENIA Administration Midodrine 5 mg 07/02/23 08:57 Midodrine 5 Mg Tablet PO 07/01/24 08:56 PRN PRN Dialysis Multivitamins 1 tab 07/01/23 09:00 07/05/23 14:07 Multivitamin 1 Tab Tablet PO 06/30/24 08:59 1 tab DAILY YESSENIA Administration Non-Formulary Medication 0.63 mg 06/30/23 17:23 Albuterol Sulfate INHALATION 06/29/24 17:22 QID PRN Shortness Of Breath Ondansetron HCl 4 mg 06/30/23 17:23 Ondansetron Odt 4 Mg Tab.Rapdis PO 06/29/24 17:22 Q6H PRN Nausea Ondansetron HCl 4 mg 07/04/23 13:29 Ondansetron 4 Mg/2 Ml Vial IV-PUSH 07/03/24 13:28 Q6H PRN Nausea And Vomiting Oxycodone HCl 5 mg 07/04/23 13:29 07/04/23 14:00 Oxycodone Ir 5 Mg Tablet PO 5 mg Q6HR PRN Administration Pain Scale 1 - 5 Oxycodone HCl 10 mg 07/04/23 13:29 07/05/23 16:30 Oxycodone Ir 5 Mg Tablet PO 10 mg Q6HR PRN Administration Pain Scale 6 - 10 Pramipexole Dihydrochloride 0.5 mg 06/30/23 22:00 07/04/23 22:11 Pramipexole 0.5 Mg Tablet PO 06/29/24 21:59 0.5 mg HS YESSENIA Administration Pregabalin 50 mg 06/30/23 21:00 07/05/23 14:08 Pregabalin 50 Mg Capsule PO 12/27/23 20:59 50 mg BID YESSENIA Administration Senna/Docusate Sodium 2 tab 07/04/23 21:00 07/05/23 12:39 Sennosides/Docusate 8.6-50mg 1 Tab Tablet PO 07/03/24 20:59 2 tab BID YESSENIA Administration Sodium Chloride 10 ml 07/04/23 12:20 07/04/23 22:13 Sodium Chloride 0.9 % 10 Ml Vial.Pf INJECTION 07/03/24 12:19 10 ml Q6H PRN Administration Ativan dilution Sodium Chloride 10 ml 07/04/23 13:29 Sodium Chloride 0.9 % 10 Ml Vial.Pf INJECTION 07/03/24 13:28 PRN PRN To dilute Pepcid Sodium Chloride 0 ml 07/05/23 08:31 Sodium Chloride 0.9 % 10 Ml Syringe IV-PUSH 07/04/24 08:30 PRN PRN Flush Vitamin D 25 mcg 07/01/23 09:00 07/05/23 14:07 Cholecalciferol 25 Mcg (1,000 Units) Tablet PO 06/30/24 08:59 25 mcg DAILY YESSENIA Administration A&P - Hospitalist Assessment/Plan (1) Closed odontoid fracture: (2) Fall: (3) ESRD (end stage renal disease): (4) Diabetes mellitus with insulin therapy: (5) Primary hypertension: Plan ASSESSMENT AND PLAN: 07/05/2023 Close odontoid fracture Mechanical fall Clinically stable S/p Posterior Cervical Decompression with C1-5 Fixation Dilaudid 0.5 mg every 4 hours as needed Percocet 1 to 2 tablets every 4 hours as needed for pain Neurosurgery is following PT/OT CHRONIC MEDICAL CONDITIONS: End-stage renal disease: On HD Hypertension: Resume Lopressor Hyperlipidemia: Resume Lipitor CAD: Resume aspirin and Lipitor Depression anxiety: Resume citalopram Foot ulcer: Healing/no fever leukocytosis/x-ray/ no osteo/wound care, Dysphagia: swallow team is following / s/p modified barium study Patient can be transferred out to general medical floor today. She is awaiting to be transferred to a correction facility. DVT prophylaxis Heparin Documented By: Cesario Clifford MD 07/05/231847 Signed By: <Electronically signed by Cesario Clifford MD> 07/05/231851 [facility] Work Phone: [phone] Progress note Author Wood Zavala [facility] July 05, 2023 10:45am Note Date/Time July 05, 2023 10:37 am [facility] [address] [place] [address] Nephrology Progress Note Signed Patient: Cinthya Wilson MR#: [id number] : 1945 Acct:[id number] Age/Sex: 78 / F Adm Date: 4 Loc: Room: [address] [place] [address] Type: ADM IN Attending Dr: Cesario Clifford MD Copies to: ~ Date of Service: 07/05/2023 Subjective Subjective Narrative: This is a 78-year-old female well-known to to me from outpatient [facility] unit was presented to the emergency room after her dialysis due to the neck pain. 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 Her other comorbidities are CAD s/p PCI, COPD, chronic hypoxic diastolic failure, cardiac arrhythmia s/p AICD and dyslipidemia. Reported as she fell 3 days ago and was having excruciating pain. In the emergency room she had a CT head and neck which showed no acute intracranial bleed or stroke, stable carotid plaque and stenosis and occlusion of the right vertebral artery, new fracture at the base of the odontoid. Patient was admitted for further workup and neurosurgery was consulted. Nephrology is consulted for ESRD management during the hospital stay. Interval history Patient was seen and examined at the bedside during dialysis. She denies any chest pain palpitation cough nausea vomiting diarrhea or shortness of breath. Exam Physical Exam Vital Signs: Temp Pulse Resp BP Pulse Ox O2 Del Method O2 Flow Rate 97.6 F 80 16 133/67 99 Nasal Cannula 2 07/05/23 09:30 07/05/23 10:00 07/05/23 09:30 07/05/23 10:00 07/05/23 09:30 07/05/23 09:30 07/05/23 09:30 Narrative: General: Appears comfortable and not in distress Heart: S1-S2, no rub Lung: Bilateral air entry, no wheezing or crackles Abdomen: Soft, positive bowel sounds Extremities: No edema, no cyanosis Head: Atraumatic, normocephalic Ear: No gross hearing Deficit or external ear redness Eyes: No pallor or redness Neck: No JVD or visible mass Skin: No rashes , warm to touch [employer]: Awake,Alert, following simple command Musculoskeletal: No swelling or limitation of movement of the large joints Psychiatric: Cooperative, normal mood and affect Objective Intake and Output I&O: Intake & Output 07/02/23 07/03/23 07/04/23 07/05/23 23:59 23:59 23:59 23:59 Intake Total 1100 / 1100 1720 / 1720 1090 / 1090 610 / 610 Output Total 1001 / 1001 0 / 0 0 / 0 0 / 0 Balance 99 / 99 1720 / 1720 1090 / 1090 610 / 610 Weight 62.6 kg 62.5 kg 62.6 kg 65.7 kg Meds and Allergies Meds: Active Medications Acetaminophen (Acetaminophen 325 Mg Tablet) 650 mg PO Q4H PRN PRN Reason: Mild Pain Stop: 07/03/24 13:28 Aspirin (Aspirin 81 Mg Tablet.) 81 mg PO DAILY [facility] Stop: 06/30/24 08:59 Last Admin: 07/04/23 14:00 Dose: 81 mg Atorvastatin Calcium (Atorvastatin 40 Mg Tablet) 40 mg PO QPM [facility] Stop: 06/29/24 20:59 Last Admin: 07/04/23 22:12 Dose: 40 mg Bisacodyl (Bisacodyl 5 Mg Tablet.) 10 mg PO DAILY PRN PRN Reason: Constipation Stop: 06/29/24 18:01 Budesonide/Formoterol Fumarate (Budesonide/Formoterol 80-4.5 Mcg 60 Puff/6.9 Gm Hfa.Aer.Ad) 2 puff INHALATION BID [facility] Stop: 06/29/24 20:59 Last Admin: 07/05/23 07:19 Dose: 2 puff Buspirone HCl (Buspirone 10 Mg Tablet) 10 mg PO BID [facility] Stop: 06/29/24 20:59 Last Admin: 07/04/23 22:12 Dose: 10 mg Calcium Acetate (Calcium Acetate 667 Mg Capsule) 667 mg PO TID.WITH.MEALS [facility] Stop: 06/30/24 07:59 Last Admin: 07/05/23 08:28 Dose: 667 mg Citalopram Hydrobromide (Citalopram 20 Mg Tablet) 20 mg PO DAILY [facility] Stop: 06/30/24 08:59 Last Admin: 07/04/23 14:00 Dose: 20 mg Dexamethasone Sodium Phosphate (Dexamethasone Sod Phosphate 4 Mg/Ml Vial) 4 mg IV-PUSH QID [facility]; Taper Stop: 07/07/23 13:59 Last Admin: 07/05/23 08:28 Dose: 4 mg Diclofenac Sodium (Diclofenac Sodium 1% Gel 100 Gm Tube) 4 gm TOPICAL QID [facility] Stop: 06/29/24 17:59 Last Admin: 07/05/23 08:28 Dose: Not Given Diphenhydramine HCl (Diphenhydramine 25 Mg Capsule) 25 mg PO Q6H PRN PRN Reason: Itching Stop: 07/03/24 13:28 Docusate Sodium (Docusate 100 Mg Capsule) 100 mg PO BID [facility] Stop: 06/29/24 20:59 Last Admin: 07/04/23 22:12 Dose: 100 mg Famotidine (Famotidine/Pf 20 Mg/2 Ml Vial) 20 mg IV-PUSH Q12HR [facility] Stop: 07/03/24 20:59 Last Admin: 07/05/23 08:29 Dose: Not Given Hydromorphone HCl (Hydromorphone 1 Mg/Ml Syringe) 1 mg IV-PUSH Q2H PRN PRN Reason: Pain Last Admin: 07/05/23 00:52 Dose: 1 mg Hydromorphone HCl (Hydromorphone 0.5 Mg/0.5 Ml Syringe) 0.5 mg IV-PUSH Q2H PRN PRN Reason: Pain Last Admin: 07/04/23 17:37 Dose: 0.5 mg Potassium Chloride/Sodium Chloride (0.9 % Nacl-20 Meq Kcl) 1,000 mls @ 100 mls/hr IV .Q10H [facility] Stop: 07/03/24 13:28 Last Admin: 07/05/23 00:32 Dose: Not Given Sodium Chloride (0.9% Sodium Chloride 1,000 Ml) 1,000 mls @ 0 mls/hr MISCELLANE.Q0M PRN PRN Reason: Dialysis Stop: 07/04/24 08:30 Last Infusion: 07/05/23 09:59 Dose: Infused Insulin Aspart (Insulin Aspart 300 Units/3 Ml Insuln.Pen) 0 units SUBCUT TID.WM.HS [facility]; Protocol Stop: 06/29/24 21:59 Last Admin: 07/05/23 08:28 Dose: 5 units Ipratropium [place] (Ipratropium [place] 0.5 Mg/2.5 Ml Vial.Neb) 0.5 mg INHALATION QID.RESP [facility] Stop: 06/29/24 19:59 Last Admin: 07/05/23 07:19 Dose: 0.5 mg Lidocaine (Lidocaine 4% Adh..Patch) 1 patch TOPICAL BID YESSENIA Stop: 06/29/24 20:59 Last Admin: 07/05/23 08:29 Dose: Not Given Loratadine (Loratadine 10 Mg Tablet) 5 mg PO DAILY YESSENIA Stop: 06/30/24 08:59 Last Admin: 07/05/23 08:29 Dose: Not Given Lorazepam (Lorazepam 2 Mg/Ml Vial) 0.25 mg IV-PUSH Q6H PRN PRN Reason: Pain Stop: 12/31/23 12:19 Lorazepam (Lorazepam 0.5 Mg Tablet) 0.25 mg PO Q8H PRN PRN Reason: Pain Stop: 12/31/23 13:28 Lubiprostone (Lubiprostone 8 Mcg Capsule) 8 mcg PO BID YESSENIA Stop: 06/29/24 20:59 Last Admin: 07/04/23 22:11 Dose: 8 mcg Melatonin (Melatonin 5 Mg Tablet) 5 mg PO QHS PRN PRN Reason: Insomnia Stop: 06/29/24 18:01 Metoprolol Tartrate (Metoprolol Tartrate 12.5 Mg Tablet) 12.5 mg PO DAILY YESSENIA Stop: 06/30/24 08:59 Last Admin: 07/04/23 08:31 Dose: Not Given Mexiletine HCl (Mexiletine 200 Mg Capsule) 200 mg PO Q8HR YESSENIA Stop: 06/29/24 21:59 Last Admin: 07/05/23 08:28 Dose: Not Given Midodrine (Midodrine 5 Mg Tablet) 5 mg PO DAILY PRN PRN Reason: low bp Stop: 06/29/24 17:22 Last Admin: 07/02/23 10:32 Dose: 5 mg Midodrine (Midodrine 5 Mg Tablet) 5 mg PO TID.7A.12P.5P YESSENIA Stop: 06/30/24 06:59 Last Admin: 07/05/23 08:28 Dose: Not Given Midodrine (Midodrine 5 Mg Tablet) 5 mg PO PRN PRN PRN Reason: Dialysis Stop: 07/01/24 08:56 Multivitamins (Multivitamin 1 Tab Tablet) 1 tab PO DAILY YESSENIA Stop: 06/30/24 08:59 Last Admin: 07/04/23 08:31 Dose: Not Given Non-Formulary Medication (Albuterol Sulfate) 0.63 mg INHALATION QID PRN PRN Reason: Shortness Of Breath Stop: 06/29/24 17:22 Ondansetron HCl (Ondansetron Odt 4 Mg Tab.Rapdis) 4 mg PO Q6H PRN PRN Reason: Nausea Stop: 06/29/24 17:22 Ondansetron HCl (Ondansetron 4 Mg/2 Ml Vial) 4 mg IV-PUSH Q6H PRN PRN Reason: Nausea And Vomiting Stop: 07/03/24 13:28 Oxycodone HCl (Oxycodone Ir 5 Mg Tablet) 5 mg PO Q6HR PRN PRN Reason: Pain Scale 1 - 5 Last Admin: 07/04/23 14:00 Dose: 5 mg Oxycodone HCl (Oxycodone Ir 5 Mg Tablet) 10 mg PO Q6HR PRN PRN Reason: Pain Scale 6 - 10 Last Admin: 07/05/23 09:56 Dose: 10 mg Pramipexole Dihydrochloride (Pramipexole 0.5 Mg Tablet) 0.5 mg PO HS YESSENIA Stop: 06/29/24 21:59 Last Admin: 07/04/23 22:11 Dose: 0.5 mg Pregabalin (Pregabalin 50 Mg Capsule) 50 mg PO BID YESSENIA Stop: 12/27/23 20:59 Last Admin: 07/04/23 22:12 Dose: 50 mg Senna/Docusate Sodium (Sennosides/Docusate 8.6-50mg 1 Tab Tablet) 2 tab PO BID YESSENIA Stop: 07/03/24 20:59 Last Admin: 07/04/23 22:11 Dose: 2 tab Sodium Chloride (Sodium Chloride 0.9 % 10 Ml Vial.Pf) 10 ml INJECTION Q6H PRN PRN Reason: Ativan dilution Stop: 07/03/24 12:19 Last Admin: 07/04/23 22:13 Dose: 10 ml Sodium Chloride (Sodium Chloride 0.9 % 10 Ml Vial.Pf) 10 ml INJECTION PRN PRN PRN Reason: To dilute Pepcid Stop: 07/03/24 13:28 Sodium Chloride (Sodium Chloride 0.9 % 10 Ml Syringe) 0 ml IV-PUSH PRN PRN PRN Reason: Flush Stop: 07/04/24 08:30 Vitamin D (Cholecalciferol 25 Mcg (1,000 Units) Tablet) 25 mcg PO DAILY YESSENIA Stop: 06/30/24 08:59 Last Admin: 07/04/23 08:00 Dose: Not Given Allergies lisinopril Allergy (Unknown, Verified 06/30/23 12:32) Cough gabapentin Allergy (Verified 06/30/23 12:32) Swelling of Lip/Tongue/Throat Results - Nephrology Labs 07/04/23 13:04 07/05/23 04:21 Labs: 07/04/23 07/05/23 13:04 04:21 BUN 38 H 50 H Creatinine 4.85 H 5.48 H D Phosphorus 6.1 H Albumin 3.0 L Radiology Impressions Impressions - last 24 hours: Impressions Cervical Spine X-Ray 07/04/23 12:09 IMPRESSION: There is redemonstration of the type I odontoid fracture. There has been interval posterior fusion hardware placement from C1 through C3 skin nic arenoted posteriorly. There is 3 mm of anterolisthesis of C2 upon C3. Impression dictated by: Jossie Díaz M.D.07/04/2023 3:22 PM Dictation Location: [place] [id number] Any impression(s) listed above is documentation that was entered by the reading physician into a diagnostic report(s) for Cinthya Wilson. I have reviewed the report(s) and am incorporating any findings in the treatment plan of this patient where applicable. A&P - Nephrology Assessment/Plan (1) Odontoid fracture: Assessment/Problem Details: Patient presents after a fall and was found to have odontoid fracture. She underwent the surgery on 07/04/2023. (2) ESRD (end stage renal disease): Assessment/Problem Details: She has a ESRD due to the hypertensive nephrosclerosis and diabetic nephropathy. She currently goes to the [facility] dialysis unit 3 times a week on MWF schedule. (3) Type 2 diabetes mellitus with diabetic chronic kidney disease: Assessment/Problem Details: She has insulin-dependent type 2 diabetes mellitus. (4) Secondary hyperparathyroidism: Assessment/Problem Details: She has secondary hyperparathyroidism due to the ESRD and hyperphosphatemia. She currently takes calcium acetate at home. 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 She takes midodrine for intradialytic hypotension. Plan * Hemodialysis today as ordered. * Continue DM management as per the primary hospitalist team. * Continue midodrine for intradialytic hypotension. * Continue management of the odontoid fracture as per the neurosurgery. * Continue home dose of the calcium acetate. * Documented By: Wood Zavala MD 07/05/23 1035 Signed By: <Electronically signed by Wood Zavala MD> 07/05/23 1045 [facility] Work Phone: 1(148) 187-898205-25-2024 Progress note Author Seth Weiss [facility] July 05, 2023 8:21am Note Date/Time July 05, 2023 8:21a m [facility] [address] [place] [address] Neurosurgery Progress Note Signed Patient: Cinthya Wilson MR#: [id number] : 1945 Acct:[id number] Age/Sex: 78 / F Adm Date: 4 Loc: Room: [address] [place] [address] Type: ADM IN Attending Dr: Cesario Clifford MD Copies to: ~ Date of Service: 07/05/2023 Subjective Subjective HPI: Patient states her neck hurts. She notes no difference in arms or legs. She isrelieved that surgery is over. Exam Physical Exam Vital Signs: Temp Pulse Resp BP Pulse Ox O2 Del Method O2 Flow Rate 97.5 F L 77 20 123/60 94 L Nasal Cannula 2 07/05/23 04:00 07/05/23 07:21 07/05/23 07:21 07/05/23 07:00 07/05/23 07:00 07/05/23 07:00 07/05/23 07:00 Narrative: Upper and lower extremity strength at baseline Posterior cervical region dry Patient wearing collar appropriately Patient alert oriented and cooperative Objective Lab Results Most Recent Labs: 07/05/23 07:48: POC Glucose 285 07/05/23 04:21: PHA Creatinine Clear 7.54, Sodium 128 L, Potassium 5.4 H, Chloride 92 L, Carbon Dioxide 21.7, Anion Gap 19.7 H, BUN 50 H, Creatinine 5.48 H D, Est GFR (CKD-EPI) 7.582, Glucose 239 H, Calcium 8.8, Phosphorus 6.1 H, Albumin 3.0 L 07/04/23 22:09: POC Glucose 273, POC Glucose Comment Glu2: cleaned meter 07/04/23 16:38: POC Glucose 280 07/04/23 13:04: Corrected WBC 8.5, Uncorrected WBC Count 8.5, RBC 3.98, Hgb 11.4L, Hct 35.4, MCV 88.8, MCH 28.6, MCHC 32.2, RDW 18.3 H, Plt Count 155, MPV 8.3, Neut % (Auto) 90.9, Lymph % (Auto) 5.0, Bandera % (Auto) 2.7, Eos % (Auto) 1.3, Baso % (Auto) 0.1, Nucleat RBC Rel Count 0.0, Neut # (Auto) 7.8 H, Lymph # (Auto) 0.4 L, Bandera # (Auto) 0.2, Eos # (Auto) 0.1, Baso # (Auto) 0.0, PHA Creatinine Clear 8.52, Sodium 132 L, Potassium 4.5, Chloride 92 L, Carbon Dioxide 23.2, Anion Gap 21.3 H, BUN 38 H, Creatinine 4.85 H, Est GFR (CKD-EPI) 8.778, Glucose 174 H, Calcium 8.9 07/04/23 12:08: POC Glucose 142, POC Glucose Comment Glu2: cleaned meter Assessment/Plan Assessment/Plan (1) ESRD (end stage renal disease): (2) Type 2 diabetes mellitus with diabetic chronic kidney disease: (3) Secondary hyperparathyroidism: (4) Chronic hypotension: (5) Odontoid fracture with type II morphology: Plan Postoperative day #1 the patient is doing well. She will be dialyzed today. She had no hypotension issues yesterday. She seems to be swallowing relatively well. Voice is good. Quite frankly spirits good. Patient needs to be mobilized with PT will be a rehab candidate Documented By: Seth Weiss MD 07/05/23 0817 Signed By: <Electronically signed by MD Seth Weiss> 07/05/23820 [facility] Work Phone: [phone]) 994-482905-25-2024 Progress note Author Wood Zavala [facility] July 05, 2023 8:04am Note Date/Time July 04, 2023 1:00p m [facility] [address] [place] [address] Nephrology Progress Note Signed Patient: Cinthya Wilson MR#: [id number] : 1945 Acct:[id number] Age/Sex: 78 / F Adm Date: 4 Loc: Room: [address] [place] [address] Type: ADM IN Attending Dr: Cesario Clifford MD Copies to: ~ Date of Service: 07/04/2023 Subjective Subjective Narrative: This is a 78-year-old female well-known to to me from outpatient [facility] was presented to the emergency room after her dialysis due to the neck pain. 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 Her other comorbidities are CAD s/p PCI, COPD, chronic hypoxic diastolic failure, cardiac arrhythmia s/p AICD and dyslipidemia. Reported as she fell 3 days ago and was having excruciating pain. In the emergency room she had a CT head and neck which showed no acute intracranial bleed or stroke, stable carotid plaque and stenosis and occlusion of the right vertebral artery, new fracture at the base of the odontoid. Patient was admitted for further workup and neurosurgery was consulted. Nephrology is consulted for ESRD management during the hospital stay. Interval history Patient was seen and examined at the bedside in ICU. She underwent the surgery this morning and denies any chest pain palpitation cough nausea vomiting diarrhea or shortness of breath. Exam Physical Exam Vital Signs: Temp Pulse Resp BP Pulse Ox O2 Del Method O2 Flow Rate 97.5 F L 76 18 105/53 L 96 Nasal Cannula 2 07/04/23 12:41 07/04/23 12:41 07/04/23 12:41 07/04/23 12:41 07/04/23 12:41 07/04/23 12:16 07/04/23 12:16 Narrative: General: Appears comfortable and not in distress Heart: S1-S2, no rub Lung: Bilateral air entry, no wheezing or crackles Abdomen: Soft, positive bowel sounds Extremities: No edema, no cyanosis Head: Atraumatic, normocephalic Ear: No gross hearing Deficit or external ear redness Eyes: No pallor or redness Neck: No JVD or visible mass Skin: No rashes , warm to touch [employer]: Awake,Alert, following simple command Musculoskeletal: No swelling or limitation of movement of the large joints Psychiatric: Cooperative, normal mood and affect Objective Intake and Output I&O: Intake & Output 07/01/23 07/02/23 07/03/23 07/04/23 23:59 23:59 23:59 23:59 Intake Total 2009 1100 / 1100 1720 / 1720 640 / 640 Output Total 0 / 0 1001 / 1001 0 / 0 Balance 2009 99 / 99 1720 / 1720 640 / 640 Weight 61.6 kg 62.6 kg 62.5 kg 62.6 kg Meds and Allergies Meds: Active Medications Acetaminophen (Acetaminophen 325 Mg Tablet) 650 mg PO Q6HR PRN PRN Reason: Pain Scale 1 - 3 or fever Stop: 06/29/24 18:01 Acetaminophen (Acetaminophen 500 Mg Tablet) 500 mg PO Q6H YESSENIA Stop: 07/07/23 05:59 Last Admin: 07/04/23 06:46 Dose: Not Given Aspirin (Aspirin 81 Mg Tablet.) 81 mg PO DAILY YESSENIA Stop: 06/30/24 08:59 Last Admin: 07/03/23 10:33 Dose: 81 mg Atorvastatin Calcium (Atorvastatin 40 Mg Tablet) 40 mg PO QPM YESSENIA Stop: 06/29/24 20:59 Last Admin: 07/03/23 21:30 Dose: 40 mg Bisacodyl (Bisacodyl 5 Mg Tablet.) 10 mg PO DAILY PRN PRN Reason: Constipation Stop: 06/29/24 18:01 Budesonide/Formoterol Fumarate (Budesonide/Formoterol 80-4.5 Mcg 60 Puff/6.9 Gm Hfa.Aer.Ad) 2 puff INHALATION BID YESSENIA Stop: 06/29/24 20:59 Last Admin: 07/04/23 12:26 Dose: Not Given Buspirone HCl (Buspirone 10 Mg Tablet) 10 mg PO BID YESSENIA Stop: 06/29/24 20:59 Last Admin: 07/03/23 21:30 Dose: 10 mg Calcium Acetate (Calcium Acetate 667 Mg Capsule) 667 mg PO TID.WITH.MEALS YESSENIA Stop: 06/30/24 07:59 Last Admin: 07/04/23 07:35 Dose: Not Given Citalopram Hydrobromide (Citalopram 20 Mg Tablet) 20 mg PO DAILY [facility] Stop: 06/30/24 08:59 Last Admin: 07/03/23 10:34 Dose: 20 mg Dextrose (Dextrose 50% In Water 25 Gm/50 Ml Syringe) 0 gm IV-PUSH PRN PRN PRN Reason: Hypoglycemia Stop: 06/29/24 18:06 Diclofenac Sodium (Diclofenac Sodium 1% Gel 100 Gm Tube) 4 gm TOPICAL QID [facility] Stop: 06/29/24 17:59 Last Admin: 07/03/23 21:38 Dose: Not Given Docusate Sodium (Docusate 100 Mg Capsule) 100 mg PO BID [facility] Stop: 06/29/24 20:59 Last Admin: 07/03/23 21:30 Dose: 100 mg Glucose (Dextrose 40% Gel 15 Gm Tube) 0 gm PO PRN PRN PRN Reason: Hypoglycemia Stop: 06/29/24 18:06 Heparin Sodium (Porcine) (Heparin 5,000 Unit/Ml Vial) 5,000 unit SUBCUT Q8HR YESSENIA Stop: 06/29/24 21:59 Last Admin: 07/03/23 06:21 Dose: 5,000 unit Heparin Sodium (Porcine) (Heparin 10,000 Unit/10 Ml Vial) 2,000 unit IV PRN PRN PRN Reason: Dialysis Stop: 07/01/24 08:56 Last Admin: 07/02/23 09:58 Dose: 2,000 unit Heparin Sodium (Porcine) (Heparin 10,000 Unit/10 Ml Vial) 1,000 unit IV PRN PRN PRN Reason: Dialysis Stop: 07/01/24 08:56 Last Admin: 07/02/23 09:59 Dose: 1,000 unit Hydromorphone HCl (Hydromorphone 0.5 Mg/0.5 Ml Syringe) 0.5 mg IV-PUSH Q4H PRN PRN Reason: Pain Scale 8 - 10 Last Admin: 07/03/23 10:33 Dose: 0.5 mg Hydromorphone HCl (Hydromorphone 0.5 Mg/0.5 Ml Syringe) 0.5 mg IV-PUSH Q5M PRN PRN Reason: Pain Stop: 07/04/23 13:08 Last Admin: 07/04/23 12:32 Dose: 0.5 mg Sodium Chloride (0.9% Sodium Chloride 1,000 Ml) 1,000 mls @ 0 mls/hr MISCELLANE.Q0M PRN PRN Reason: Dialysis Stop: 07/01/24 08:56 Last Infusion: 07/02/23 10:31 Dose: Infused Dextrose (5 % Dextrose In Water) 1,000 mls @ 50 mls/hr IV .Q20H YESSENIA Stop: 07/01/24 16:29 Last Admin: 07/03/23 15:21 Dose: 50 mls/hr Sodium Chloride (0.9% Sodium Chloride 500 Ml) 500 mls @ 20 mls/hr IV .Q24H YESSENIA Stop: 07/03/24 08:14 Last Infusion: 07/04/23 12:26 Dose: 20 mls/hr Insulin Aspart (Insulin Aspart 300 Units/3 Ml Insuln.Pen) 0 units SUBCUT TID.WM.[facility]; Protocol Stop: 06/29/24 21:59 Last Admin: 07/04/23 07:22 Dose: 3 units Ipratropium [place] (Ipratropium [place] 0.5 Mg/2.5 Ml Vial.Neb) 2 mg INHALATION QID.RESP YESSENIA Stop: 06/29/24 19:59 Last Admin: 07/04/23 12:26 Dose: Not Given Lidocaine (Lidocaine 4% Adh..Patch) 1 patch TOPICAL BID YESSENIA Stop: 06/29/24 20:59 Last Admin: 07/03/23 21:31 Dose: Not Given Lidocaine HCl (Lidocaine 1% 50 Ml Vial) 0.1 ml INTRADERMA PREOP PRN PRN Reason: Venipuncture x 1 Dose Loratadine (Loratadine 10 Mg Tablet) 5 mg PO DAILY YESSENIA Stop: 06/30/24 08:59 Last Admin: 07/03/23 10:34 Dose: 5 mg Lorazepam (Lorazepam 2 Mg/Ml Vial) 0.25 mg IV-PUSH Q6H PRN PRN Reason: Pain Stop: 12/31/23 12:19 Lubiprostone (Lubiprostone 8 Mcg Capsule) 8 mcg PO BID YESSENIA Stop: 06/29/24 20:59 Last Admin: 07/03/23 21:30 Dose: 8 mcg Melatonin (Melatonin 5 Mg Tablet) 5 mg PO QHS PRN PRN Reason: Insomnia Stop: 06/29/24 18:01 Metoprolol Tartrate (Metoprolol Tartrate 12.5 Mg Tablet) 12.5 mg PO DAILY [facility] Stop: 06/30/24 08:59 Last Admin: 07/04/23 06:47 Dose: 12.5 mg Mexiletine HCl (Mexiletine 200 Mg Capsule) 200 mg PO Q8HR YESSENIA Stop: 06/29/24 21:59 Last Admin: 07/04/23 06:46 Dose: Not Given Midodrine (Midodrine 5 Mg Tablet) 5 mg PO DAILY PRN PRN Reason: low bp Stop: 06/29/24 17:22 Last Admin: 07/02/23 10:32 Dose: 5 mg Midodrine (Midodrine 5 Mg Tablet) 5 mg PO TID.7A.12P.5P [facility] Stop: 06/30/24 06:59 Last Admin: 07/04/23 07:35 Dose: Not Given Midodrine (Midodrine 5 Mg Tablet) 5 mg PO PRN PRN PRN Reason: Dialysis Stop: 07/01/24 08:56 Multivitamins (Multivitamin 1 Tab Tablet) 1 tab PO DAILY [facility] Stop: 06/30/24 08:59 Last Admin: 07/03/23 10:34 Dose: 1 tab Non-Formulary Medication (Albuterol Sulfate) 0.63 mg INHALATION QID PRN PRN Reason: Shortness Of Breath Stop: 06/29/24 17:22 Ondansetron HCl (Ondansetron Odt 4 Mg Tab.Rapdis) 4 mg PO Q6H PRN PRN Reason: Nausea Stop: 06/29/24 17:22 Ondansetron HCl (Ondansetron 4 Mg/2 Ml Vial) 4 mg IV-PUSH Q8H PRN PRN Reason: Nausea And Vomiting Stop: 06/29/24 18:01 Ondansetron HCl (Ondansetron 4 Mg/2 Ml Vial) 4 mg IV-PUSH ONCE PRN PRN Reason: Nausea/Vomiting Stop: 07/04/23 13:08 Oxycodone/Acetaminophen (Oxycodone/Acetaminophen 5-325 Mg Tablet) 1 tab PO Q4H PRN PRN Reason: Pain Scale 4 - 7 Last Admin: 07/01/23 17:05 Dose: 1 tab Oxycodone/Acetaminophen (Oxycodone/Acetaminophen 5-325 Mg Tablet) 2 tab PO [id number] PRN Reason: pain Last Admin: 07/02/23 10:53 Dose: 2 tab Pantoprazole Sodium (Pantoprazole 40 Mg Tablet.Dr) 40 mg PO DAILY YESSENIA Stop: 06/30/24 08:59 Last Admin: 07/03/23 10:34 Dose: 40 mg Pramipexole Dihydrochloride (Pramipexole 0.5 Mg Tablet) 0.5 mg PO HS YESSENIA Stop: 06/29/24 21:59 Last Admin: 07/03/23 21:39 Dose: Not Given Pregabalin (Pregabalin 50 Mg Capsule) 50 mg PO BID YESSENIA Stop: 12/27/23 20:59 Last Admin: 07/03/23 21:30 Dose: 50 mg Sodium Chloride (Sodium Chloride 0.9 % 10 Ml Syringe) 0 ml IV-PUSH PRN PRN PRN Reason: Flush Stop: 06/29/24 12:34 Last Admin: 07/03/23 09:30 Dose: 10 ml Sodium Chloride (Sodium Chloride 0.9 % 10 Ml Syringe) 0 ml IV-PUSH PRN PRN PRN Reason: Flush Stop: 07/01/24 08:56 Last Admin: 07/02/23 09:58 Dose: 10 ml Sodium Chloride (Sodium Chloride 0.9 % 10 Ml Syringe) 0 ml IV-PUSH PRN PRN PRN Reason: Flush Stop: 07/03/24 00:00 Sodium Chloride (Sodium Chloride 0.9 % 10 Ml Vial.Pf) 10 ml INJECTION Q6H PRN PRN Reason: Ativan dilution Stop: 07/03/24 12:19 Tizanidine HCl (Tizanidine 4 Mg Tablet) 4 mg PO QHS YESSENIA Stop: 06/29/24 21:59 Last Admin: 07/03/23 21:30 Dose: 4 mg Vitamin D (Cholecalciferol 25 Mcg (1,000 Units) Tablet) 25 mcg PO DAILY YESSENIA Stop: 06/30/24 08:59 Last Admin: 07/03/23 10:34 Dose: 25 mcg Allergies lisinopril Allergy (Unknown, Verified 06/30/23 12:32) Cough gabapentin Allergy (Verified 06/30/23 12:32) Swelling of Lip/Tongue/Throat Results - Nephrology Labs 07/04/23 13:04 07/05/23 04:21 Labs: 07/04/23 06:37 BUN 37 H Creatinine 4.70 H D Phosphorus 4.8 H Albumin 2.9 L Radiology Impressions Impressions - last 24 hours: Any impression(s) listed above is documentation that was entered by the reading physician into a diagnostic report(s) for Cinthya Wilson. I have reviewed the report(s) and am incorporating any findings in the treatment plan of this patient where applicable. A&P - Nephrology Assessment/Plan (1) Odontoid fracture: Assessment/Problem Details: Patient presents after a fall and was found to have odontoid fracture. Neurosurgery has been following the patient and plan to do surgery on 07/04/2023. (2) ESRD (end stage renal disease): Assessment/Problem Details: She has a ESRD due to the hypertensive nephrosclerosis and diabetic nephropathy. She currently goes to the [facility] dialysis unit 3 times a week on MWF schedule. (3) Type 2 diabetes mellitus with diabetic chronic kidney disease: Assessment/Problem Details: She has insulin-dependent type 2 diabetes mellitus. (4) Secondary hyperparathyroidism: Assessment/Problem Details: She has a secondary hyperparathyroidism due to the ESRD and hyperphosphatemia. She currently takes calcium acetate at home. 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 She takes midodrine for intradialytic hypotension. Plan * No need for dialysis today. Next dialysis will be Tomorrow * Continue DM management as per the primary hospitalist team. * Continue midodrine for intradialytic hypotension. * Continue management of the odontoid fracture as per the neurosurgery. * Continue home dose of the calcium acetate. * Documented By: Wood Zavala MD 07/04/23 1300 Signed By: <Electronically signed by Wood Zavala MD> 07/05/23 0804 [facility] Work Phone: [phone]) [phone] Progress note Author Tatiana Loya [facility] July 04, 2023 2:23pm Note Date/Time July 04, 2023 1:08p m [facility] [address] [place] [address] Hospitalist Progress Note Signed Patient: Cinthya Wilson MR#: [id number] : 1945 Acct:[id number] Age/Sex: 78 / F Adm Date: 4 Loc: Room: [address] [place] [address] Type: ADM IN Attending Dr: Tatiana Loya MD Copies to: ~ Date of Service: 07/04/2023 Subjective Subjective Narrative: 78-year-old white female past medical history of hypertension, hyperlipidemia, diabetes type 2, end-stage renal disease on hemodialysis, chronic COPD, sleep apnea GERD, anxiety, sleep apnea, and chronic neck and back pain who presented to emergency room with generalized weakness, generalized pain and fall. She hasbeen complaining of neck and back pain for the last 3 days. She has episode of fall 3 days ago. She has been complaining of blurred vision for no double vision no dizziness. No slurred speech. No headache. no upper extremity or lower extremity weakness. No upper extremity or lower extremity numbness or tingling. She denies having dizziness. No syncopal episode. She denies any chest pain or shortness of breath. She denies having abdominal pain. No diarrhea. She denies having dysuria, hematuria, frequency. No hematemesis, melena or hematochezia. CT brain no acute intracranial bleed. CTA neck showed stable carotid plaque and stenosis and occlusion of the right vertebral artery unchanged with extensive postoperative and degenerative changes at the cervical spine and NEW FRACTURE AT THE BASE OF THE ODONTOID IS SEEN. Seen and examined Clinically stable No nausea or vomiting No chest pain or SOB Exam Physical Exam Vital Signs: Temp Pulse Resp BP Pulse Ox O2 Del Method O2 Flow Rate 97.5 F L 76 18 105/53 L 96 Nasal Cannula 2 07/04/23 12:41 07/04/23 12:41 07/04/23 12:41 07/04/23 12:41 07/04/23 12:41 07/04/23 12:16 07/04/23 12:16 Narrative: General patient laying in bed in [...] no rash or lesions Objective Lab Results 06/30/23 13:04 07/04/23 06:37 Meds Allergies and Active Meds Allergies lisinopril Allergy (Unknown, Verified 06/30/23 12:32) Cough gabapentin Allergy (Verified 06/30/23 12:32) Swelling of Lip/Tongue/Throat Active Meds: Active Medications Generic Name Dose Route Start Last Admin Trade Name Freq PRN Reason Stop Dose Admin Acetaminophen 650 mg 06/30/23 18:02 Acetaminophen 325 Mg Tablet PO 06/29/24 18:01 Q6HR PRN Pain Scale 1 - 3 or fever Acetaminophen 500 mg 07/04/23 06:00 07/04/23 06:46 Acetaminophen 500 Mg Tablet PO 07/07/23 05:59 Not Given Q6H YESSENIA Aspirin 81 mg 07/01/23 09:00 07/03/23 10:33 Aspirin 81 Mg Tablet. PO 06/30/24 08:59 81 mg DAILY YESSENIA Administration Atorvastatin Calcium 40 mg 06/30/23 21:00 07/03/23 21:30 Atorvastatin 40 Mg Tablet PO 06/29/24 20:59 40 mg QPM YESSENIA Administration Bisacodyl 10 mg 06/30/23 18:02 Bisacodyl 5 Mg Tablet. PO 06/29/24 18:01 DAILY PRN Constipation Budesonide/Formoterol Fumarate 2 puff 06/30/23 21:00 07/04/23 12:26 Budesonide/Formoterol 80-4.5 Mcg 60 Puff/6.9 Gm Hfa.Aer.Ad INHALATION 06/29/24 20:59 Not Given BID YESSENIA Buspirone HCl 10 mg 06/30/23 21:00 07/03/23 21:30 Buspirone 10 Mg Tablet PO 06/29/24 20:59 10 mg BID YESSENIA Administration Calcium Acetate 667 mg 07/01/23 08:00 07/04/23 07:35 Calcium Acetate 667 Mg Capsule PO 06/30/24 07:59 Not Given TID.WITH.MEALS YESSENIA Citalopram Hydrobromide 20 mg 07/01/23 09:00 07/03/23 10:34 Citalopram 20 Mg Tablet PO 06/30/24 08:59 20 mg DAILY YESSENIA Administration Dextrose 0 gm 06/30/23 18:07 Dextrose 50% In Water 25 Gm/50 Ml Syringe IV-PUSH 06/29/24 18:06 PRN PRN Hypoglycemia Diclofenac Sodium 4 gm 06/30/23 18:00 07/03/23 21:38 Diclofenac Sodium 1% Gel 100 Gm Tube TOPICAL 06/29/24 17:59 Not Given QID YESSENIA Docusate Sodium 100 mg 06/30/23 21:00 07/03/23 21:30 Docusate 100 Mg Capsule PO 06/29/24 20:59 100 mg BID YESSENIA Administration Glucose 0 gm 06/30/23 18:07 Dextrose 40% Gel 15 Gm Tube PO 06/29/24 18:06 PRN PRN Hypoglycemia Heparin Sodium (Porcine) 5,000 unit 06/30/23 22:00 07/03/23 06:21 Heparin 5,000 Unit/Ml Vial SUBCUT 06/29/24 21:59 5,000 unit Q8HR YESSENIA Administration Heparin Sodium (Porcine) 2,000 unit 07/02/23 08:57 07/02/23 09:58 Heparin 10,000 Unit/10 Ml Vial IV 07/01/24 08:56 2,000 unit PRN PRN Administration Dialysis Heparin Sodium (Porcine) 1,000 unit 07/02/23 08:57 07/02/23 09:59 Heparin 10,000 Unit/10 Ml Vial IV 07/01/24 08:56 1,000 unit PRN PRN Administration Dialysis Hydromorphone HCl 0.5 mg 07/02/23 20:07 07/03/23 10:33 Hydromorphone 0.5 Mg/0.5 Ml Syringe IV-PUSH 0.5 mg Q4H PRN Administration Pain Scale 8 - 10 Hydromorphone HCl 0.5 mg 07/04/23 10:08 07/04/23 12:32 Hydromorphone 0.5 Mg/0.5 Ml Syringe IV-PUSH 07/04/23 13:08 0.5 mg Q5M PRN Administration Pain Sodium Chloride 1,000 mls @ 0 mls/hr 07/02/23 08:57 07/02/23 10:31 0.9% Sodium Chloride 1,000 Ml MISCELLANE 07/01/24 08:56 Infused .Q0M PRN Infusion Dialysis As Directed Dextrose 1,000 mls @ 50 mls/hr 07/02/23 16:30 07/03/23 15:21 5 % Dextrose In Water IV 07/01/24 16:29 50 mls/hr .Q20H YESSENIA Administration Sodium Chloride 500 mls @ 20 mls/hr 07/04/23 08:15 07/04/23 12:26 0.9% Sodium Chloride 500 Ml IV 07/03/24 08:14 20 mls/hr .Q24H YESSENIA Infusion Insulin Aspart 0 units 06/30/23 22:00 07/04/23 07:22 Insulin Aspart 300 Units/3 Ml Insuln.Pen SUBCUT 06/29/24 21:59 3 units TID.WM.HS YESSENIA Administration Protocol Ipratropium [place] 2 mg 06/30/23 20:00 07/04/23 12:26 Ipratropium [place] 0.5 Mg/2.5 Ml Vial.Neb INHALATION 06/29/24 19:59 Not Given QID.RESP YESSENIA Lidocaine 1 patch 06/30/23 21:00 07/03/23 21:31 Lidocaine 4% Adh..Patch TOPICAL 06/29/24 20:59 Not Given BID YESSENIA Lidocaine HCl 0.1 ml 07/04/23 00:00 Lidocaine 1% 50 Ml Vial INTRADERMA PREOP PRN Venipuncture x 1 Dose Loratadine 5 mg 07/01/23 09:00 07/03/23 10:34 Loratadine 10 Mg Tablet PO 06/30/24 08:59 5 mg DAILY YESSENIA Administration Lorazepam 0.25 mg 07/04/23 12:20 Lorazepam 2 Mg/Ml Vial IV-PUSH 12/31/23 12:19 Q6H PRN Pain Lubiprostone 8 mcg 06/30/23 21:00 07/03/23 21:30 Lubiprostone 8 Mcg Capsule PO 06/29/24 20:59 8 mcg BID YESSENIA Administration Melatonin 5 mg 06/30/23 18:02 Melatonin 5 Mg Tablet PO 06/29/24 18:01 QHS PRN Insomnia Metoprolol Tartrate 12.5 mg 07/01/23 09:00 07/04/23 06:47 Metoprolol Tartrate 12.5 Mg Tablet PO 06/30/24 08:59 12.5 mg DAILY YESSENIA Administration Mexiletine HCl 200 mg 06/30/23 22:00 07/04/23 06:46 Mexiletine 200 Mg Capsule PO 06/29/24 21:59 Not Given Q8HR YESSENIA Midodrine 5 mg 06/30/23 17:23 07/02/23 10:32 Midodrine 5 Mg Tablet PO 06/29/24 17:22 5 mg DAILY PRN Administration low bp Midodrine 5 mg 07/01/23 07:00 07/04/23 07:35 Midodrine 5 Mg Tablet PO 06/30/24 06:59 Not Given TID.7A.12P.5P YESSENIA Midodrine 5 mg 07/02/23 08:57 Midodrine 5 Mg Tablet PO 07/01/24 08:56 PRN PRN Dialysis Multivitamins 1 tab 07/01/23 09:00 07/03/23 10:34 Multivitamin 1 Tab Tablet PO 06/30/24 08:59 1 tab DAILY YESSENIA Administration Non-Formulary Medication 0.63 mg 06/30/23 17:23 Albuterol Sulfate INHALATION 06/29/24 17:22 QID PRN Shortness Of Breath Ondansetron HCl 4 mg 06/30/23 17:23 Ondansetron Odt 4 Mg Tab.Rapdis PO 06/29/24 17:22 Q6H PRN Nausea Ondansetron HCl 4 mg 06/30/23 18:02 Ondansetron 4 Mg/2 Ml Vial IV-PUSH 06/29/24 18:01 Q8H PRN Nausea And Vomiting Ondansetron HCl 4 mg 07/04/23 10:08 Ondansetron 4 Mg/2 Ml Vial IV-PUSH 07/04/23 13:08 ONCE PRN Nausea/Vomiting Oxycodone/Acetaminophen 1 tab 06/30/23 18:02 07/01/23 17:05 Oxycodone/Acetaminophen 5-325 Mg Tablet PO 1 tab Q4H PRN Administration Pain Scale 4 - 7 Oxycodone/Acetaminophen 2 tab 06/30/23 23:49 07/02/23 10:53 Oxycodone/Acetaminophen 5-325 Mg Tablet PO 2 tab Q6HR PRN Administration pain Pantoprazole Sodium 40 mg 07/01/23 09:00 07/03/23 10:34 Pantoprazole 40 Mg Tablet. PO 06/30/24 08:59 40 mg DAILY YESSENIA Administration Pramipexole Dihydrochloride 0.5 mg 06/30/23 22:00 07/03/23 21:39 Pramipexole 0.5 Mg Tablet PO 06/29/24 21:59 Not Given HS YESSENIA Pregabalin 50 mg 06/30/23 21:00 07/03/23 21:30 Pregabalin 50 Mg Capsule PO 12/27/23 20:59 50 mg BID YESSENIA Administration Sodium Chloride 0 ml 06/30/23 12:35 07/03/23 09:30 Sodium Chloride 0.9 % 10 Ml Syringe IV-PUSH 06/29/24 12:34 10 ml PRN PRN Administration Flush Sodium Chloride 0 ml 07/02/23 08:57 07/02/23 09:58 Sodium Chloride 0.9 % 10 Ml Syringe IV-PUSH 07/01/24 08:56 10 ml PRN PRN Administration Flush Sodium Chloride 0 ml 07/04/23 00:00 Sodium Chloride 0.9 % 10 Ml Syringe IV-PUSH 07/03/24 00:00 PRN PRN Flush Sodium Chloride 10 ml 07/04/23 12:20 Sodium Chloride 0.9 % 10 Ml Vial.Pf INJECTION 07/03/24 12:19 Q6H PRN Ativan dilution Tizanidine HCl 4 mg 06/30/23 22:00 07/03/23 21:30 Tizanidine 4 Mg Tablet PO 06/29/24 21:59 4 mg QHS YESSENIA Administration Vitamin D 25 mcg 07/01/23 09:00 07/03/23 10:34 Cholecalciferol 25 Mcg (1,000 Units) Tablet PO 06/30/24 08:59 25 mcg DAILY YESSENIA Administration A&P - Hospitalist Assessment/Plan (1) Closed odontoid fracture: (2) Fall: (3) Anxiety and depression: (4) ESRD (end stage renal disease): (5) Diabetes mellitus with insulin therapy: (6) Primary hypertension: Plan Close odontoid fracture Mechanical fall Seen and examined Clinically stable S/p Posterior Cervical Decompression with C1-5 Fixation Dilaudid 0.5 mg every 4 hours as needed Percocet 1 to 2 tablets every 4 hours as needed for pain Neurosurgery is following PT/OT End-stage renal disease: On HD Hypertension: Resume Lopressor Hyperlipidemia: Resume Lipitor CAD: Resume aspirin and Lipitor Depression anxiety: Resume citalopram Foot ulcer: Healing/no fever leukocytosis/x-ray/ no osteo/wound care, Dysphagia: swallow team is following / s/p modified barium study DVT prophylaxis Heparin Documented By: Tatiana Loya MD 07/04/23 1306 Signed By: <Electronically signed by Tatiana Loya MD> 07/04/23 1425 [facility] Work Phone: [phone] 252-657405-24-2024 Progress note Author Tatiana Loya [facility] July 04, 2023 12:32pm Note Date/Time July 04, 2023 12:32 pm [facility] [address] [place] [address] Hospitalist Progress Note Signed Patient: Cinthya Wilson MR#: [id number] : 1945 Acct:[id number] Age/Sex: 78 / F Adm Date: 4 Loc: Room: [address] [place] [address] Type: ADM IN Attending Dr: Tatiana Loya MD Copies to: ~ Date of Service: 07/04/2023 Subjective Subjective Narrative: 78-year-old white female past medical history of hypertension, hyperlipidemia, diabetes type 2, end-stage renal disease on hemodialysis, chronic COPD, sleep apnea GERD, anxiety, sleep apnea, and chronic neck and back pain who presented to emergency room with generalized weakness, generalized pain and fall. She hasbeen complaining of neck and back pain for the last 3 days. She has episode of fall 3 days ago. She has been complaining of blurred vision for no double vision no dizziness. No slurred speech. No headache. no upper extremity or lower extremity weakness. No upper extremity or lower extremity numbness or tingling. She denies having dizziness. No syncopal episode. She denies any chest pain or shortness of breath. She denies having abdominal pain. No diarrhea. She denies having dysuria, hematuria, frequency. No hematemesis, melena or hematochezia. CT brain no acute intracranial bleed. CTA neck showed stable carotid plaque and stenosis and occlusion of the right vertebral artery unchanged with extensive postoperative and degenerative changes at the cervical spine and NEW FRACTURE AT THE BASE OF THE ODONTOID IS SEEN. Seen and examined Clinically stable No nausea or vomiting No chest pain or SOB Exam Physical Exam Vital Signs: Temp Pulse Resp BP Pulse Ox O2 Del Method O2 Flow Rate 98.4 F 67 18 123/60 100 Nasal Cannula 2 07/04/23 08:05 07/04/23 08:05 07/04/23 08:05 07/04/23 08:05 07/04/23 08:05 07/04/23 08:05 07/04/23 08:05 Narrative: General patient laying in bed in [...] no rash or lesions Objective Lab Results 06/30/23 13:04 07/04/23 06:37 Meds Allergies and Active Meds Allergies lisinopril Allergy (Unknown, Verified 06/30/23 12:32) Cough gabapentin Allergy (Verified 06/30/23 12:32) Swelling of Lip/Tongue/Throat Active Meds: Active Medications Generic Name Dose Route Start Last Admin Trade Name Freq PRN Reason Stop Dose Admin Acetaminophen 650 mg 06/30/23 18:02 Acetaminophen 325 Mg Tablet PO 06/29/24 18:01 Q6HR PRN Pain Scale 1 - 3 or fever Acetaminophen 500 mg 07/04/23 06:00 07/04/23 06:46 Acetaminophen 500 Mg Tablet PO 07/07/23 05:59 Not Given Q6H YESSENIA Aspirin 81 mg 07/01/23 09:00 07/03/23 10:33 Aspirin 81 Mg Tablet. PO 06/30/24 08:59 81 mg DAILY YESSENIA Administration Atorvastatin Calcium 40 mg 06/30/23 21:00 07/03/23 21:30 Atorvastatin 40 Mg Tablet PO 06/29/24 20:59 40 mg QPM YESSENIA Administration Bisacodyl 10 mg 06/30/23 18:02 Bisacodyl 5 Mg Tablet. PO 06/29/24 18:01 DAILY PRN Constipation Budesonide/Formoterol Fumarate 2 puff 06/30/23 21:00 07/04/23 12:26 Budesonide/Formoterol 80-4.5 Mcg 60 Puff/6.9 Gm Hfa.Aer.Ad INHALATION 06/29/24 20:59 Not Given BID YESSENIA Buspirone HCl 10 mg 06/30/23 21:00 07/03/23 21:30 Buspirone 10 Mg Tablet PO 06/29/24 20:59 10 mg BID YESSENIA Administration Calcium Acetate 667 mg 07/01/23 08:00 07/04/23 07:35 Calcium Acetate 667 Mg Capsule PO 06/30/24 07:59 Not Given TID.WITH.MEALS YESSENIA Citalopram Hydrobromide 20 mg 07/01/23 09:00 07/03/23 10:34 Citalopram 20 Mg Tablet PO 06/30/24 08:59 20 mg DAILY YESSENIA Administration Dextrose 0 gm 06/30/23 18:07 Dextrose 50% In Water 25 Gm/50 Ml Syringe IV-PUSH 06/29/24 18:06 PRN PRN Hypoglycemia Diclofenac Sodium 4 gm 06/30/23 18:00 07/03/23 21:38 Diclofenac Sodium 1% Gel 100 Gm Tube TOPICAL 06/29/24 17:59 Not Given QID YESSENIA Docusate Sodium 100 mg 06/30/23 21:00 07/03/23 21:30 Docusate 100 Mg Capsule PO 06/29/24 20:59 100 mg BID YESSENIA Administration Glucose 0 gm 06/30/23 18:07 Dextrose 40% Gel 15 Gm Tube PO 06/29/24 18:06 PRN PRN Hypoglycemia Heparin Sodium (Porcine) 5,000 unit 06/30/23 22:00 07/03/23 06:21 Heparin 5,000 Unit/Ml Vial SUBCUT 06/29/24 21:59 5,000 unit Q8HR YESSENIA Administration Heparin Sodium (Porcine) 2,000 unit 07/02/23 08:57 07/02/23 09:58 Heparin 10,000 Unit/10 Ml Vial IV 07/01/24 08:56 2,000 unit PRN PRN Administration Dialysis Heparin Sodium (Porcine) 1,000 unit 07/02/23 08:57 07/02/23 09:59 Heparin 10,000 Unit/10 Ml Vial IV 07/01/24 08:56 1,000 unit PRN PRN Administration Dialysis Hydromorphone HCl 0.5 mg 07/02/23 20:07 07/03/23 10:33 Hydromorphone 0.5 Mg/0.5 Ml Syringe IV-PUSH 0.5 mg Q4H PRN Administration Pain Scale 8 - 10 Hydromorphone HCl 0.5 mg 07/04/23 10:08 07/04/23 12:23 Hydromorphone 0.5 Mg/0.5 Ml Syringe IV-PUSH 07/04/23 13:08 0.5 mg Q5M PRN Administration Pain Sodium Chloride 1,000 mls @ 0 mls/hr 07/02/23 08:57 07/02/23 10:31 0.9% Sodium Chloride 1,000 Ml MISCELLANE 07/01/24 08:56 Infused .Q0M PRN Infusion Dialysis As Directed Dextrose 1,000 mls @ 50 mls/hr 07/02/23 16:30 07/03/23 15:21 5 % Dextrose In Water IV 07/01/24 16:29 50 mls/hr .Q20H YESSENIA Administration Sodium Chloride 500 mls @ 20 mls/hr 07/04/23 08:15 07/04/23 12:26 0.9% Sodium Chloride 500 Ml IV 07/03/24 08:14 20 mls/hr .Q24H YESSENIA Infusion Insulin Aspart 0 units 06/30/23 22:00 07/04/23 07:22 Insulin Aspart 300 Units/3 Ml Insuln.Pen SUBCUT 06/29/24 21:59 3 units TID.WM.HS YESSENIA Administration Protocol Ipratropium [place] 2 mg 06/30/23 20:00 07/04/23 12:26 Ipratropium [place] 0.5 Mg/2.5 Ml Vial.Neb INHALATION 06/29/24 19:59 Not Given QID.RESP YESSENIA Lidocaine 1 patch 06/30/23 21:00 07/03/23 21:31 Lidocaine 4% Adh..Patch TOPICAL 06/29/24 20:59 Not Given BID YESSENIA Lidocaine HCl 0.1 ml 07/04/23 00:00 Lidocaine 1% 50 Ml Vial INTRADERMA PREOP PRN Venipuncture x 1 Dose Loratadine 5 mg 07/01/23 09:00 07/03/23 10:34 Loratadine 10 Mg Tablet PO 06/30/24 08:59 5 mg DAILY YESSENIA Administration Lorazepam 0.25 mg 07/04/23 12:20 Lorazepam 2 Mg/Ml Vial IV-PUSH 12/31/23 12:19 Q6H PRN Pain Lubiprostone 8 mcg 06/30/23 21:00 07/03/23 21:30 Lubiprostone 8 Mcg Capsule PO 06/29/24 20:59 8 mcg BID YESSENIA Administration Melatonin 5 mg 06/30/23 18:02 Melatonin 5 Mg Tablet PO 06/29/24 18:01 QHS PRN Insomnia Metoprolol Tartrate 12.5 mg 07/01/23 09:00 07/04/23 06:47 Metoprolol Tartrate 12.5 Mg Tablet PO 06/30/24 08:59 12.5 mg DAILY YESSENIA Administration Mexiletine HCl 200 mg 06/30/23 22:00 07/04/23 06:46 Mexiletine 200 Mg Capsule PO 06/29/24 21:59 Not Given Q8HR YESSENIA Midodrine 5 mg 06/30/23 17:23 07/02/23 10:32 Midodrine 5 Mg Tablet PO 06/29/24 17:22 5 mg DAILY PRN Administration low bp Midodrine 5 mg 07/01/23 07:00 07/04/23 07:35 Midodrine 5 Mg Tablet PO 06/30/24 06:59 Not Given TID.7A.12P.5P YESSENIA Midodrine 5 mg 07/02/23 08:57 Midodrine 5 Mg Tablet PO 07/01/24 08:56 PRN PRN Dialysis Multivitamins 1 tab 07/01/23 09:00 07/03/23 10:34 Multivitamin 1 Tab Tablet PO 06/30/24 08:59 1 tab DAILY YESSENIA Administration Non-Formulary Medication 0.63 mg 06/30/23 17:23 Albuterol Sulfate INHALATION 06/29/24 17:22 QID PRN Shortness Of Breath Ondansetron HCl 4 mg 06/30/23 17:23 Ondansetron Odt 4 Mg Tab.Rapdis PO 06/29/24 17:22 Q6H PRN Nausea Ondansetron HCl 4 mg 06/30/23 18:02 Ondansetron 4 Mg/2 Ml Vial IV-PUSH 06/29/24 18:01 Q8H PRN Nausea And Vomiting Ondansetron HCl 4 mg 07/04/23 10:08 Ondansetron 4 Mg/2 Ml Vial IV-PUSH 07/04/23 13:08 ONCE PRN Nausea/Vomiting Oxycodone/Acetaminophen 1 tab 06/30/23 18:02 07/01/23 17:05 Oxycodone/Acetaminophen 5-325 Mg Tablet PO 1 tab Q4H PRN Administration Pain Scale 4 - 7 Oxycodone/Acetaminophen 2 tab 06/30/23 23:49 07/02/23 10:53 Oxycodone/Acetaminophen 5-325 Mg Tablet PO 2 tab Q6HR PRN Administration pain Pantoprazole Sodium 40 mg 07/01/23 09:00 07/03/23 10:34 Pantoprazole 40 Mg Tablet.Dr PO 06/30/24 08:59 40 mg DAILY YESSENIA Administration Pramipexole Dihydrochloride 0.5 mg 06/30/23 22:00 07/03/23 21:39 Pramipexole 0.5 Mg Tablet PO 06/29/24 21:59 Not Given HS YESSENIA Pregabalin 50 mg 06/30/23 21:00 07/03/23 21:30 Pregabalin 50 Mg Capsule PO 12/27/23 20:59 50 mg BID YESSENIA Administration Sodium Chloride 0 ml 06/30/23 12:35 07/03/23 09:30 Sodium Chloride 0.9 % 10 Ml Syringe IV-PUSH 06/29/24 12:34 10 ml PRN PRN Administration Flush Sodium Chloride 0 ml 07/02/23 08:57 07/02/23 09:58 Sodium Chloride 0.9 % 10 Ml Syringe IV-PUSH 07/01/24 08:56 10 ml PRN PRN Administration Flush Sodium Chloride 0 ml 07/04/23 00:00 Sodium Chloride 0.9 % 10 Ml Syringe IV-PUSH 07/03/24 00:00 PRN PRN Flush Sodium Chloride 10 ml 07/04/23 12:20 Sodium Chloride 0.9 % 10 Ml Vial.Pf INJECTION 07/03/24 12:19 Q6H PRN Ativan dilution Tizanidine HCl 4 mg 06/30/23 22:00 07/03/23 21:30 Tizanidine 4 Mg Tablet PO 06/29/24 21:59 4 mg QHS YESSENIA Administration Vitamin D 25 mcg 07/01/23 09:00 07/03/23 10:34 Cholecalciferol 25 Mcg (1,000 Units) Tablet PO 06/30/24 08:59 25 mcg DAILY YESSENIA Administration A&P - Hospitalist Assessment/Plan (1) Closed odontoid fracture: (2) Fall: (3) Anxiety and depression: (4) ESRD (end stage renal disease): (5) Diabetes mellitus with insulin therapy: (6) Primary hypertension: Plan Close odontoid fracture Mechanical fall Seen and examined Clinically stable S/p Posterior Cervical Decompression with C1-5 Fixation Dilaudid 0.5 mg every 4 hours as needed Percocet 1 to 2 tablets every 4 hours as needed for pain Neurosurgery is following PT/OT End-stage renal disease: On HD Hypertension: Resume Lopressor Hyperlipidemia: Resume Lipitor CAD: Resume aspirin and Lipitor Depression anxiety: Resume citalopram Foot ulcer: Healing/no fever leukocytosis/x-ray/ no osteo/wound care, Dysphagia: swallow team is following / s/p modified barium study DVT prophylaxis Heparin Documented By: Tatiana Loya MD 07/04/23 1228 Signed By: <Electronically signed by Tatiana Loya MD> 07/04/23 1232 [facility] Work Phone: 1([phone] 172-509905-23-2024 Progress note Author Tatiana Loya [facility] July 03, 2023 12:14pm Note Date/Time July 03, 2023 12:14 pm [facility] [address] [place] [address] Hospitalist Progress Note Signed Patient: Cinthya Wilson MR#: [id number] : 1945 Acct:[id number] Age/Sex: 78 / F Adm Date: 4 Loc: Room: [address] [place] [address] Type: ADM IN Attending Dr: Tatiana Loya MD Copies to: ~ Date of Service: 07/03/2023 Subjective Subjective Narrative: 78-year-old white female past medical history of hypertension, hyperlipidemia, diabetes type 2, end-stage renal disease on hemodialysis, chronic COPD, sleep apnea GERD, anxiety, sleep apnea, and chronic neck and back pain who presented to emergency room with generalized weakness, generalized pain and fall. She hasbeen complaining of neck and back pain for the last 3 days. She has episode of fall 3 days ago. She has been complaining of blurred vision for no double vision no dizziness. No slurred speech. No headache. no upper extremity or lower extremity weakness. No upper extremity or lower extremity numbness or tingling. She denies having dizziness. No syncopal episode. She denies any chest pain or shortness of breath. She denies having abdominal pain. No diarrhea. She denies having dysuria, hematuria, frequency. No hematemesis, melena or hematochezia. CT brain no acute intracranial bleed. CTA neck showed stable carotid plaque and stenosis and occlusion of the right vertebral artery unchanged with extensive postoperative and degenerative changes at the cervical spine and NEW FRACTURE AT THE BASE OF THE ODONTOID IS SEEN. Seen and examined Clinically stable Pain is better No nausea or vomiting No chest pain or SOB Exam Physical Exam Vital Signs: Temp Pulse Resp BP Pulse Ox O2 Del Method O2 Flow Rate 98.3 F 78 18 118/64 98 Room Air 2 07/03/23 09:20 07/03/23 09:20 07/03/23 09:20 07/03/23 09:20 07/03/23 09:20 07/03/23 09:20 07/03/23 04:00 Narrative: General patient laying in bed in [...] no rash or lesions Objective Lab Results 06/30/23 13:04 07/02/23 09:19 Meds Allergies and Active Meds Allergies lisinopril Allergy (Unknown, Verified 06/30/23 12:32) Cough gabapentin Allergy (Verified 06/30/23 12:32) Swelling of Lip/Tongue/Throat Active Meds: Active Medications Generic Name Dose Route Start Last Admin Trade Name Freq PRN Reason Stop Dose Admin Acetaminophen 650 mg 06/30/23 18:02 Acetaminophen 325 Mg Tablet PO 06/29/24 18:01 Q6HR PRN Pain Scale 1 - 3 or fever Aspirin 81 mg 07/01/23 09:00 07/03/23 10:33 Aspirin 81 Mg Tablet. PO 06/30/24 08:59 81 mg DAILY YESSENIA Administration Atorvastatin Calcium 40 mg 06/30/23 21:00 07/02/23 21:54 Atorvastatin 40 Mg Tablet PO 06/29/24 20:59 Not Given QPM YESSENIA Bisacodyl 10 mg 06/30/23 18:02 Bisacodyl 5 Mg Tablet. PO 06/29/24 18:01 DAILY PRN Constipation Budesonide/Formoterol Fumarate 2 puff 06/30/23 21:00 07/03/23 09:23 Budesonide/Formoterol 80-4.5 Mcg 60 Puff/6.9 Gm Hfa.Aer.Ad INHALATION 06/29/24 20:59 2 puff BID YESSENIA Administration Buspirone HCl 10 mg 06/30/23 21:00 07/03/23 10:34 Buspirone 10 Mg Tablet PO 06/29/24 20:59 10 mg BID YESSENIA Administration Calcium Acetate 667 mg 07/01/23 08:00 07/03/23 11:40 Calcium Acetate 667 Mg Capsule PO 06/30/24 07:59 667 mg TID.WITH.MEALS YESSENIA Administration Citalopram Hydrobromide 20 mg 07/01/23 09:00 07/03/23 10:34 Citalopram 20 Mg Tablet PO 06/30/24 08:59 20 mg DAILY YESSENIA Administration Dextrose 0 gm 06/30/23 18:07 Dextrose 50% In Water 25 Gm/50 Ml Syringe IV-PUSH 06/29/24 18:06 PRN PRN Hypoglycemia Diclofenac Sodium 4 gm 06/30/23 18:00 07/03/23 10:33 Diclofenac Sodium 1% Gel 100 Gm Tube TOPICAL 06/29/24 17:59 4 gm QID YESSENIA Administration Docusate Sodium 100 mg 06/30/23 21:00 07/03/23 10:33 Docusate 100 Mg Capsule PO 06/29/24 20:59 100 mg BID YESSENIA Administration Glucose 0 gm 06/30/23 18:07 Dextrose 40% Gel 15 Gm Tube PO 06/29/24 18:06 PRN PRN Hypoglycemia Heparin Sodium (Porcine) 5,000 unit 06/30/23 22:00 07/03/23 06:21 Heparin 5,000 Unit/Ml Vial SUBCUT 06/29/24 21:59 5,000 unit Q8HR YESSENIA Administration Heparin Sodium (Porcine) 2,000 unit 07/02/23 08:57 07/02/23 09:58 Heparin 10,000 Unit/10 Ml Vial IV 07/01/24 08:56 2,000 unit PRN PRN Administration Dialysis Heparin Sodium (Porcine) 1,000 unit 07/02/23 08:57 07/02/23 09:59 Heparin 10,000 Unit/10 Ml Vial IV 07/01/24 08:56 1,000 unit PRN PRN Administration Dialysis Hydromorphone HCl 0.5 mg 07/02/23 20:07 07/03/23 10:33 Hydromorphone 0.5 Mg/0.5 Ml Syringe IV-PUSH 0.5 mg Q4H PRN Administration Pain Scale 8 - 10 Sodium Chloride 1,000 mls @ 0 mls/hr 07/02/23 08:57 07/02/23 10:31 0.9% Sodium Chloride 1,000 Ml MISCELLANE 07/01/24 08:56 Infused .Q0M PRN Infusion Dialysis As Directed Dextrose 1,000 mls @ 50 mls/hr 07/02/23 16:30 07/02/23 16:54 5 % Dextrose In Water IV 07/01/24 16:29 50 mls/hr .Q20H YESSENIA Administration Insulin Aspart 0 units 06/30/23 22:00 07/03/23 11:37 Insulin Aspart 300 Units/3 Ml Insuln.Pen SUBCUT 06/29/24 21:59 Not Given TID.WM.HS YESSENIA Protocol Ipratropium [place] 2 mg 06/30/23 20:00 07/03/23 09:23 Ipratropium [place] 0.5 Mg/2.5 Ml Vial.Neb INHALATION 06/29/24 19:59 2 mg QID.RESP YESSENIA Administration Lidocaine 1 patch 06/30/23 21:00 07/03/23 10:33 Lidocaine 4% Adh..Patch TOPICAL 06/29/24 20:59 1 patch BID YESSENIA Administration Loratadine 5 mg 07/01/23 09:00 07/03/23 10:34 Loratadine 10 Mg Tablet PO 06/30/24 08:59 5 mg DAILY YESSENIA Administration Lubiprostone 8 mcg 06/30/23 21:00 07/03/23 10:34 Lubiprostone 8 Mcg Capsule PO 06/29/24 20:59 8 mcg BID YESSENIA Administration Melatonin 5 mg 06/30/23 18:02 Melatonin 5 Mg Tablet PO 06/29/24 18:01 QHS PRN Insomnia Metoprolol Tartrate 12.5 mg 07/01/23 09:00 07/03/23 10:34 Metoprolol Tartrate 12.5 Mg Tablet PO 06/30/24 08:59 12.5 mg DAILY YESSENIA Administration Mexiletine HCl 200 mg 06/30/23 22:00 07/03/23 06:18 Mexiletine 200 Mg Capsule PO 06/29/24 21:59 Not Given Q8HR YESSENIA Midodrine 5 mg 06/30/23 17:23 07/02/23 10:32 Midodrine 5 Mg Tablet PO 06/29/24 17:22 5 mg DAILY PRN Administration low bp Midodrine 5 mg 07/01/23 07:00 07/03/23 11:39 Midodrine 5 Mg Tablet PO 06/30/24 06:59 5 mg TID.7A.12P.5P YESSENIA Administration Midodrine 5 mg 07/02/23 08:57 Midodrine 5 Mg Tablet PO 07/01/24 08:56 PRN PRN Dialysis Multivitamins 1 tab 07/01/23 09:00 07/03/23 10:34 Multivitamin 1 Tab Tablet PO 06/30/24 08:59 1 tab DAILY YESSENIA Administration Non-Formulary Medication 0.63 mg 06/30/23 17:23 Albuterol Sulfate INHALATION 06/29/24 17:22 QID PRN Shortness Of Breath Ondansetron HCl 4 mg 06/30/23 17:23 Ondansetron Odt 4 Mg Tab.Rapdis PO 06/29/24 17:22 Q6H PRN Nausea Ondansetron HCl 4 mg 06/30/23 18:02 Ondansetron 4 Mg/2 Ml Vial IV-PUSH 06/29/24 18:01 Q8H PRN Nausea And Vomiting Oxycodone/Acetaminophen 1 tab 06/30/23 18:02 07/01/23 17:05 Oxycodone/Acetaminophen 5-325 Mg Tablet PO 1 tab Q4H PRN Administration Pain Scale 4 - 7 Oxycodone/Acetaminophen 2 tab 06/30/23 23:49 07/02/23 10:53 Oxycodone/Acetaminophen 5-325 Mg Tablet PO 2 tab Q6HR PRN Administration pain Pantoprazole Sodium 40 mg 07/01/23 09:00 07/03/23 10:34 Pantoprazole 40 Mg Tablet.Dr PO 06/30/24 08:59 40 mg DAILY YESSENIA Administration Pramipexole Dihydrochloride 0.5 mg 06/30/23 22:00 07/02/23 21:53 Pramipexole 0.5 Mg Tablet PO 06/29/24 21:59 Not Given HS YESSENIA Pregabalin 50 mg 06/30/23 21:00 07/03/23 10:34 Pregabalin 50 Mg Capsule PO 12/27/23 20:59 50 mg BID YESSENIA Administration Sodium Chloride 0 ml 06/30/23 12:35 07/03/23 09:30 Sodium Chloride 0.9 % 10 Ml Syringe IV-PUSH 06/29/24 12:34 10 ml PRN PRN Administration Flush Sodium Chloride 0 ml 07/02/23 08:57 07/02/23 09:58 Sodium Chloride 0.9 % 10 Ml Syringe IV-PUSH 07/01/24 08:56 10 ml PRN PRN Administration Flush Tizanidine HCl 4 mg 06/30/23 22:00 07/02/23 21:53 Tizanidine 4 Mg Tablet PO 06/29/24 21:59 Not Given QHS YESSENIA Vitamin D 25 mcg 07/01/23 09:00 07/03/23 10:34 Cholecalciferol 25 Mcg (1,000 Units) Tablet PO 06/30/24 08:59 25 mcg DAILY YESSENIA Administration A&P - Hospitalist Assessment/Plan (1) Closed odontoid fracture: (2) Fall: (3) Anxiety and depression: (4) ESRD (end stage renal disease): (5) Diabetes mellitus with insulin therapy: (6) Primary hypertension: Plan Close odontoid fracture Mechanical fall Seen and examined Clinically Better Pain is better CT brain: No acute intracranial bleeding CTA neck stable carotid plaque and stenosis and occlusion of the right vertebral artery unchanged with extensive postoperative and degenerative changes at the cervical spine and NEW FRACTURE AT THE BASE OF THE ODONTOID IS SEEN. CT lumbar spine OSTEOPENIA, REVERSE S-SHAPED SCOLIOTIC CURVATURE AND DISCOVERTEBRAL DEGENERATIVECHANGES MOST NOTABLE IN THE LUMBAR REGION. NO OBVIOUS ACUTE THORACIC OR LUMBAR COMPRESSION FRACTURES. INCIDENTAL FINDINGS INCLUDING A PERSISTENT RIGHT PLEURAL EFFUSION WITH ADJACENT LOWER LOBE CONSOLIDATIO Percocet 1 to 2 tablets every 4 hours as needed for pain Neurosurgery is following Plan for surgery tomorrow PT OT evaluation End-stage renal disease: On HD Hypertension: Resume Lopressor Hyperlipidemia: Resume Lipitor CAD: Resume aspirin and Lipitor Depression anxiety: Resume citalopram Foot ulcer: Healing/no fever leukocytosis/x-ray/ no osteo/wound care, Dysphagia: swallow team is following / s/p modified barium study DVT prophylaxis Heparin Documented By: Tatiana Loya MD 07/03/231211 Signed By: <Electronically signed by Tatiana Loya MD> 07/03/23 1214 [facility] Work Phone: 1(374) 140-881805-23-2024 Progress note Author Wood Zavala [facility] July 03, 2023 10:40am Note Date/Time July 03, 2023 10:40 am [facility] [address] [place] [address] Nephrology Progress Note Signed Patient: Cinthya Wilson MR#: [id number] : 1945 Acct:[id number] Age/Sex: 78 / F Adm Date: 4 Loc: Room: [address] [place] [address] Type: ADM IN Attending Dr: Tatiana Loya MD Copies to: ~ Date of Service: 07/03/2023 Subjective Subjective Narrative: This is a 78-year-old female well-known to to me from outpatient [facility] unit was presented to the emergency room after her dialysis due to the neck pain. 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 Her other comorbidities are CAD s/p PCI, COPD, chronic hypoxic diastolic failure, cardiac arrhythmia s/p AICD and dyslipidemia. Reported as she fell 3 days ago and was having excruciating pain. In the emergency room she had a CT head and neck which showed no acute intracranial bleed or stroke, stable carotid plaque and stenosis and occlusion of the right vertebral artery, new fracture at the base of the odontoid. Patient was admitted for further workup and neurosurgery was consulted. Nephrology is consulted for ESRD management during the hospital stay. Interval history Patient was seen and examined at the bedside. She is feeling better denies any chest pain palpitation cough nausea vomiting diarrhea or shortness of breath. She is scheduled to have a surgery tomorrow. Exam Physical Exam Vital Signs: Temp Pulse Resp BP Pulse Ox O2 Del Method O2 Flow Rate 98.3 F 78 18 118/64 98 Room Air 2 07/03/23 09:20 07/03/23 09:20 07/03/23 09:20 07/03/23 09:20 07/03/23 09:07/03/23 09:07/03/23 04:00 Narrative: General: Appears comfortable and not in distress Heart: S1-S2, no rub Lung: Bilateral air entry, no wheezing or crackles Abdomen: Soft, positive bowel sounds Extremities: No edema, no cyanosis Head: Atraumatic, normocephalic Ear: No gross hearing Deficit or external ear redness Eyes: No pallor or redness Neck: No JVD or visible mass Skin: No rashes , warm to touch [employer]: Awake,Alert, following simple command Musculoskeletal: No swelling or limitation of movement of the large joints Psychiatric: Cooperative, normal mood and affect Objective Intake and Output I&O: Intake & Output 06/30/23 07/01/23 07/02/23 07/03/23 23:59 23:59 23:59 23:59 Intake Total 710 / 1060 2009 1100 / 1100 0 / 0 Output Total 0 / 0 1001 / 1001 0 / 0 Balance 710 / 1060 2009 99 / 99 0 / 0 Weight 61.9 kg 61.6 kg 62.6 kg 62.5 kg Meds and Allergies Meds: Active Medications Acetaminophen (Acetaminophen 325 Mg Tablet) 650 mg PO Q6HR PRN PRN Reason: Pain Scale 1 - 3 or fever Stop: 06/29/24 18:01 Aspirin (Aspirin 81 Mg Tablet.) 81 mg PO DAILY [facility] Stop: 06/30/24 08:59 Last Admin: 07/03/23 10:33 Dose: 81 mg Atorvastatin Calcium (Atorvastatin 40 Mg Tablet) 40 mg PO QPM [facility] Stop: 06/29/24 20:59 Last Admin: 07/02/23 21:54 Dose: Not Given Bisacodyl (Bisacodyl 5 Mg Tablet.Dr) 10 mg PO DAILY PRN PRN Reason: Constipation Stop: 06/29/24 18:01 Budesonide/Formoterol Fumarate (Budesonide/Formoterol 80-4.5 Mcg 60 Puff/6.9 Gm Hfa.Aer.Ad) 2 puff INHALATION BID YESSENIA Stop: 06/29/24 20:59 Last Admin: 07/03/23 09:23 Dose: 2 puff Buspirone HCl (Buspirone 10 Mg Tablet) 10 mg PO BID YESSENIA Stop: 06/29/24 20:59 Last Admin: 07/03/23 10:34 Dose: 10 mg Calcium Acetate (Calcium Acetate 667 Mg Capsule) 667 mg PO TID.WITH.MEALS YESSENIA Stop: 06/30/24 07:59 Last Admin: 07/03/23 10:34 Dose: Not Given Citalopram Hydrobromide (Citalopram 20 Mg Tablet) 20 mg PO DAILY YESSENIA Stop: 06/30/24 08:59 Last Admin: 07/03/23 10:34 Dose: 20 mg Dextrose (Dextrose 50% In Water 25 Gm/50 Ml Syringe) 0 gm IV-PUSH PRN PRN PRN Reason: Hypoglycemia Stop: 06/29/24 18:06 Diclofenac Sodium (Diclofenac Sodium 1% Gel 100 Gm Tube) 4 gm TOPICAL QID YESSENIA Stop: 06/29/24 17:59 Last Admin: 07/03/23 10:33 Dose: 4 gm Docusate Sodium (Docusate 100 Mg Capsule) 100 mg PO BID YESSENIA Stop: 06/29/24 20:59 Last Admin: 07/03/23 10:33 Dose: 100 mg Glucose (Dextrose 40% Gel 15 Gm Tube) 0 gm PO PRN PRN PRN Reason: Hypoglycemia Stop: 06/29/24 18:06 Heparin Sodium (Porcine) (Heparin 5,000 Unit/Ml Vial) 5,000 unit SUBCUT Q8HR YESSENIA Stop: 06/29/24 21:59 Last Admin: 07/03/23 06:21 Dose: 5,000 unit Heparin Sodium (Porcine) (Heparin 10,000 Unit/10 Ml Vial) 2,000 unit IV PRN PRN PRN Reason: Dialysis Stop: 07/01/24 08:56 Last Admin: 07/02/23 09:58 Dose: 2,000 unit Heparin Sodium (Porcine) (Heparin 10,000 Unit/10 Ml Vial) 1,000 unit IV PRN PRN PRN Reason: Dialysis Stop: 07/01/24 08:56 Last Admin: 07/02/23 09:59 Dose: 1,000 unit Hydromorphone HCl (Hydromorphone 0.5 Mg/0.5 Ml Syringe) 0.5 mg IV-PUSH Q4H PRN PRN Reason: Pain Scale 8 - 10 Last Admin: 07/03/23 10:33 Dose: 0.5 mg Sodium Chloride (0.9% Sodium Chloride 1,000 Ml) 1,000 mls @ 0 mls/hr MISCELLANE.Q0M PRN PRN Reason: Dialysis Stop: 07/01/24 08:56 Last Infusion: 07/02/23 10:31 Dose: Infused Dextrose (5 % Dextrose In Water) 1,000 mls @ 50 mls/hr IV .Q20H [facility] Stop: 07/01/24 16:29 Last Admin: 07/02/23 16:54 Dose: 50 mls/hr Insulin Aspart (Insulin Aspart 300 Units/3 Ml Insuln.Pen) 0 units SUBCUT TID.WM.[facility]; Protocol Stop: 06/29/24 21:59 Last Admin: 07/03/23 09:12 Dose: Not Given Ipratropium [place] (Ipratropium [place] 0.5 Mg/2.5 Ml Vial.Neb) 2 mg INHALATION QID.RESP YESSENIA Stop: 06/29/24 19:59 Last Admin: 07/03/23 09:23 Dose: 2 mg Lidocaine (Lidocaine 4% Adh..Patch) 1 patch TOPICAL BID YESSENIA Stop: 06/29/24 20:59 Last Admin: 07/03/23 10:33 Dose: 1 patch Loratadine (Loratadine 10 Mg Tablet) 5 mg PO DAILY YESSENIA Stop: 06/30/24 08:59 Last Admin: 07/03/23 10:34 Dose: 5 mg Lubiprostone (Lubiprostone 8 Mcg Capsule) 8 mcg PO BID YESSENIA Stop: 06/29/24 20:59 Last Admin: 07/03/23 10:34 Dose: 8 mcg Melatonin (Melatonin 5 Mg Tablet) 5 mg PO QHS PRN PRN Reason: Insomnia Stop: 06/29/24 18:01 Metoprolol Tartrate (Metoprolol Tartrate 12.5 Mg Tablet) 12.5 mg PO DAILY YESSENIA Stop: 06/30/24 08:59 Last Admin: 07/03/23 10:34 Dose: 12.5 mg Mexiletine HCl (Mexiletine 200 Mg Capsule) 200 mg PO Q8HR YESSENIA Stop: 06/29/24 21:59 Last Admin: 07/03/23 06:18 Dose: Not Given Midodrine (Midodrine 5 Mg Tablet) 5 mg PO DAILY PRN PRN Reason: low bp Stop: 06/29/24 17:22 Last Admin: 07/02/23 10:32 Dose: 5 mg Midodrine (Midodrine 5 Mg Tablet) 5 mg PO TID.7A.12P.5P YESSENIA Stop: 06/30/24 06:59 Last Admin: 07/03/23 06:19 Dose: Not Given Midodrine (Midodrine 5 Mg Tablet) 5 mg PO PRN PRN PRN Reason: Dialysis Stop: 07/01/24 08:56 Multivitamins (Multivitamin 1 Tab Tablet) 1 tab PO DAILY YESSENIA Stop: 06/30/24 08:59 Last Admin: 07/03/23 10:34 Dose: 1 tab Non-Formulary Medication (Albuterol Sulfate) 0.63 mg INHALATION QID PRN PRN Reason: Shortness Of Breath Stop: 06/29/24 17:22 Ondansetron HCl (Ondansetron Odt 4 Mg Tab.Rapdis) 4 mg PO Q6H PRN PRN Reason: Nausea Stop: 06/29/24 17:22 Ondansetron HCl (Ondansetron 4 Mg/2 Ml Vial) 4 mg IV-PUSH Q8H PRN PRN Reason: Nausea And Vomiting Stop: 06/29/24 18:01 Oxycodone/Acetaminophen (Oxycodone/Acetaminophen 5-325 Mg Tablet) 1 tab PO Q4H PRN PRN Reason: Pain Scale 4 - 7 Last Admin: 07/01/23 17:05 Dose: 1 tab Oxycodone/Acetaminophen (Oxycodone/Acetaminophen 5-325 Mg Tablet) 2 tab PO [id number] PRN Reason: pain Last Admin: 07/02/23 10:53 Dose: 2 tab Pantoprazole Sodium (Pantoprazole 40 Mg Tablet.Dr) 40 mg PO DAILY YESSENIA Stop: 06/30/24 08:59 Last Admin: 07/03/23 10:34 Dose: 40 mg Pramipexole Dihydrochloride (Pramipexole 0.5 Mg Tablet) 0.5 mg PO HS YESSENIA Stop: 06/29/24 21:59 Last Admin: 07/02/23 21:53 Dose: Not Given Pregabalin (Pregabalin 50 Mg Capsule) 50 mg PO BID YESSENIA Stop: 12/27/23 20:59 Last Admin: 07/03/23 10:34 Dose: 50 mg Sodium Chloride (Sodium Chloride 0.9 % 10 Ml Syringe) 0 ml IV-PUSH PRN PRN PRN Reason: Flush Stop: 06/29/24 12:34 Last Admin: 07/03/23 09:30 Dose: 10 ml Sodium Chloride (Sodium Chloride 0.9 % 10 Ml Syringe) 0 ml IV-PUSH PRN PRN PRN Reason: Flush Stop: 07/01/24 08:56 Last Admin: 07/02/23 09:58 Dose: 10 ml Tizanidine HCl (Tizanidine 4 Mg Tablet) 4 mg PO QHS YESSENIA Stop: 06/29/24 21:59 Last Admin: 07/02/23 21:53 Dose: Not Given Vitamin D (Cholecalciferol 25 Mcg (1,000 Units) Tablet) 25 mcg PO DAILY YESSENIA Stop: 06/30/24 08:59 Last Admin: 07/03/23 10:34 Dose: 25 mcg Allergies lisinopril Allergy (Unknown, Verified 06/30/23 12:32) Cough gabapentin Allergy (Verified 06/30/23 12:32) Swelling of Lip/Tongue/Throat Results - Nephrology Labs 06/30/23 13:04 07/02/23 09:19 Radiology Impressions Impressions - last 24 hours: Any impression(s) listed above is documentation that was entered by the reading physician into a diagnostic report(s) for Cinthya Wilson. I have reviewed the report(s) and am incorporating any findings in the treatment plan of this patient where applicable. A&P - Nephrology Assessment/Plan (1) Odontoid fracture: Assessment/Problem Details: Patient presents after a fall and was found to have odontoid fracture. Neurosurgery has been following the patient and plan to do surgery on 07/04/2023. (2) ESRD (end stage renal disease): Assessment/Problem Details: She has a ESRD due to the hypertensive nephrosclerosis and diabetic nephropathy. She currently goes to the [facility] dialysis unit 3 times a week on MWF schedule. (3) Type 2 diabetes mellitus with diabetic chronic kidney disease: Assessment/Problem Details: She has insulin-dependent type 2 diabetes mellitus. (4) Secondary hyperparathyroidism: Assessment/Problem Details: She has a secondary hyperparathyroidism due to the ESRD and hyperphosphatemia. She currently takes calcium acetate at home. 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 She takes midodrine for intradialytic hypotension. Plan * No need for dialysis today. Next dialysis will be likely on Friday. Will check the labs tomorrow just to make sure she is stable for surgery. * Continue DM management as per the primary hospitalist team. * Continue midodrine for intradialytic hypotension. * Continue management of the odontoid fracture as per the neurosurgery. * Continue home dose of the calcium acetate. * Documented By: Wood Zavala MD 07/03/23 1037 Signed By: <Electronically signed by Wood Zavala MD> 07/03/23 1040 [facility] Work Phone: 1(292) 720-424205-23-2024 Progress note Author Seth Weiss [facility] July 03, 2023 7:47am Note Date/Time July 03, 2023 7:46a m [facility] [address] [place] [address] Neurosurgery Progress Note Signed Patient: Cinthya Wilson MR#: [id number] : 1945 Acct:[id number] Age/Sex: 78 / F Adm Date: 4 Loc: 3T Room: [address] [place] [address] Type: ADM IN Attending Dr: Tatiana Loya MD Copies to: ~ Date of Service: 07/03/2023 Subjective Subjective HPI: Patient is calm in bed pleasant to talk to states she feels she is swallowing better now. Feels that there may have been an anxiety component to her poor swallowing yesterday. Exam Physical Exam Vital Signs: Temp Pulse Resp BP Pulse Ox O2 Del Method O2 Flow Rate 98.1 F 77 16 125/66 98 Nasal Cannula 2 07/03/23 04:00 07/03/23 04:00 07/03/23 04:00 07/03/23 04:00 07/03/23 04:00 07/03/23 04:00 07/03/23 04:00 Narrative: Alert and oriented by 3 Wearing collar appropriately Face symmetrical Upper extremity strength 5/5 with the exception of deltoid cannot raise arms overhead Lower extremity strength grossly 5/5 appropriate for age Objective Lab Results Most Recent Labs: 07/03/23 06:26: POC Glucose 132 07/02/23 20:27: POC Glucose 85 07/02/23 15:58: POC Glucose 82, POC Glucose Comment Glu2: cleaned meter 07/02/23 14:15: POC Glucose 129 07/02/23 09:19: PHA Creatinine Clear 8.33, Sodium 128 L, Potassium 4.1, [id number] L, Carbon Dioxide 24.2, Anion Gap 18.9 H, BUN 50 H, Creatinine 4.96 H D, Est GFR (CKD-EPI) 8.546, Glucose 226 H, Calcium 8.9, Phosphorus 5.8 H, Albumin 3.2 L Assessment/Plan Assessment/Plan (1) Odontoid fracture: (2) ESRD (end stage renal disease): (3) Type 2 diabetes mellitus with diabetic chronic kidney disease: (4) Secondary hyperparathyroidism: (5) Chronic hypotension: Plan Will try to feed the patient today plan for surgery in a.m. at about noon. Heparin will need to be stopped. Plan is for stabilization of the cervical spine in the morning C1 to possibly C3-4-5. Patient understands and agrees Documented By: Seth Weiss MD 07/03/23 0743 Signed By: <Electronically signed by MD Seth Weiss> 07/03/23 0747 [facility] Work Phone: 1(680) 782-455805-22-2024 Progress note Author Seth Weiss [facility] July 02, 2023 1:43pm Note Date/Time July 02, 2023 1:42p m [facility] [address] [place] [address] Neurosurgery Progress Note Signed Patient: Cinthya Wilson MR#: [id number] : 1945 Acct:[id number] Age/Sex: 78 / F Adm Date: 4 Loc: 3T Room: [address] [place] [address] Type: ADM IN Attending Dr: Tatiana Loya MD Copies to: ~ Date of Service: 07/02/2023 Subjective Subjective HPI: Patient tried to lay down in the MRI scanner today got short of breath and had difficulty swallowing. I talked to her later she seems to be much more comfortable and doing better. She has no other extremity complaints she is wearing her collar appropriately Exam Physical Exam Vital Signs: Temp Pulse Resp BP Pulse Ox O2 Del Method O2 Flow Rate 97 F L 74 18 102/53 L 99 Nasal Cannula 3 07/02/23 09:28 07/02/23 12:00 07/02/23 09:28 07/02/23 12:00 07/02/23 09:28 07/02/23 09:28 07/02/23 09:28 Narrative: Patient alert and talkative Swallowing saliva well not choking in any way, apparently took pills up in dialysis Extremity strength upper extremity 5/5 lower extremity 5/5 bilateral except cannot raise arms overhead Wearing collar appropriately Objective Lab Results Most Recent Labs: 07/02/23 09:19: PHA Creatinine Clear 8.33, Sodium 128 L, Potassium 4.1, [id number] L, Carbon Dioxide 24.2, Anion Gap 18.9 H, BUN 50 H, Creatinine 4.96 H D, Est GFR (CKD-EPI) 8.546, Glucose 226 H, Calcium 8.9, Phosphorus 5.8 H, Albumin 3.2 L 07/02/23 06:44: POC Glucose 174 07/01/23 21:12: POC Glucose 180 07/01/23 16:30: POC Glucose 141 Assessment/Plan Assessment/Plan (1) Odontoid fracture: (2) ESRD (end stage renal disease): (3) Type 2 diabetes mellitus with diabetic chronic kidney disease: (4) Secondary hyperparathyroidism: (5) Chronic hypotension: Plan At this point the patient is unstable at C1-2 she will need some form of stabilization if possible I think a collar will be an extremely poor option she outright refuses a halo and I cannot blame her but surgery will have comorbidities potentially. I will call the patient's daughter tomorrow and alsodiscussed this. At this point with all the difficulties with MRI we will no longer try for an MRI and proceed with stabilization on this patient. Documented By: Seth Weiss MD 07/02/23 1335 Signed By: <Electronically signed by MD Seth Weiss> 07/02/23 0273 [facility] Work Phone: 1(462) 217-152105-22-2024 Progress note Author Wood Zavala [facility] July 02, 2023 11:43am Note Date/Time July 02, 2023 11:43 am [facility] [address] [place] [address] Nephrology Progress Note Signed Patient: Cinthya Wilson MR#: [id number] : 1945 Acct:[id number] Age/Sex: 78 / F Adm Date: 4 Loc: Room: [address] [place] [address] Type: ADM IN Attending Dr: Tatiana Loya MD Copies to: ~ Date of Service: 07/02/2023 Subjective Subjective Narrative: This is a 78-year-old female well-known to to me from outpatient [facility] was presented to the emergency room after her dialysis due to the neck pain. 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 Her other comorbidities are CAD s/p PCI, COPD, chronic hypoxic diastolic failure, cardiac arrhythmia s/p AICD and dyslipidemia. Reported as she fell 3 days ago and was having excruciating pain. In the emergency room she had a CT head and neck which showed no acute intracranial bleed or stroke, stable carotid plaque and stenosis and occlusion of the right vertebral artery, new fracture at the base of the odontoid. Patient was admitted for further workup and neurosurgery was consulted. Nephrology is consulted for ESRD management during the hospital stay. Interval history Patient was seen and examined at the bedside during hemodialysis. She reported that difficulty in swallowing but denies any chest pain palpation cough nausea or diarrhea and shortness of breath. She is ordered to have MRI of the spine asrecommended by the neurosurgery to decide about the surgical intervention. Exam Physical Exam Vital Signs: Temp Pulse Resp BP Pulse Ox O2 Del Method O2 Flow Rate 97 F L 65 18 85/45 L 99 Nasal Cannula 3 07/02/23 09:28 07/02/23 10:30 07/02/23 09:28 07/02/23 10:30 07/02/23 09:28 07/02/23 09:28 07/02/23 09:28 Narrative: General: Appears comfortable and not in distress Heart: S1-S2, no rub Lung: Bilateral air entry, no wheezing or crackles Abdomen: Soft, positive bowel sounds Extremities: No edema, no cyanosis Head: Atraumatic, normocephalic Ear: No gross hearing Deficit or external ear redness Eyes: No pallor or redness Neck: No JVD or visible mass Skin: No rashes , warm to touch [employer]: Awake,Alert, following simple command Musculoskeletal: No swelling or limitation of movement of the large joints Psychiatric: Cooperative, normal mood and affect Objective Intake and Output I&O: Intake & Output 06/29/23 06/30/23 07/01/23 07/02/23 23:59 23:59 23:59 23:59 Intake Total 710 / 1060 2009 1100 / 1100 Output Total 0 / 0 0 / 0 Balance 710 / 1060 2009 1100 / 1100 Weight 61.9 kg 61.6 kg 62.6 kg Meds and Allergies Meds: Active Medications Acetaminophen (Acetaminophen 325 Mg Tablet) 650 mg PO Q6HR PRN PRN Reason: Pain Scale 1 - 3 or fever Stop: 06/29/24 18:01 Aspirin (Aspirin 81 Mg Tablet.) 81 mg PO DAILY [facility] Stop: 06/30/24 08:59 Last Admin: 07/01/23 10:55 Dose: 81 mg Atorvastatin Calcium (Atorvastatin 40 Mg Tablet) 40 mg PO QPM YESSENIA Stop: 06/29/24 20:59 Last Admin: 07/01/23 21:41 Dose: 40 mg Bisacodyl (Bisacodyl 5 Mg Tablet.) 10 mg PO DAILY PRN PRN Reason: Constipation Stop: 06/29/24 18:01 Budesonide/Formoterol Fumarate (Budesonide/Formoterol 80-4.5 Mcg 60 Puff/6.9 Gm Hfa.Aer.Ad) 2 puff INHALATION BID YESSENIA Stop: 06/29/24 20:59 Last Admin: 07/02/23 07:42 Dose: 2 puff Buspirone HCl (Buspirone 10 Mg Tablet) 10 mg PO BID YESSENIA Stop: 06/29/24 20:59 Last Admin: 07/01/23 21:41 Dose: 10 mg Calcium Acetate (Calcium Acetate 667 Mg Capsule) 667 mg PO TID.WITH.MEALS YESSENIA Stop: 06/30/24 07:59 Last Admin: 07/01/23 17:04 Dose: 667 mg Citalopram Hydrobromide (Citalopram 20 Mg Tablet) 20 mg PO DAILY YESSENIA Stop: 06/30/24 08:59 Last Admin: 07/01/23 10:49 Dose: 20 mg Dextrose (Dextrose 50% In Water 25 Gm/50 Ml Syringe) 0 gm IV-PUSH PRN PRN PRN Reason: Hypoglycemia Stop: 06/29/24 18:06 Diclofenac Sodium (Diclofenac Sodium 1% Gel 100 Gm Tube) 4 gm TOPICAL QID YESSENIA Stop: 06/29/24 17:59 Last Admin: 07/01/23 21:41 Dose: 4 gm Docusate Sodium (Docusate 100 Mg Capsule) 100 mg PO BID YESSENIA Stop: 06/29/24 20:59 Last Admin: 07/01/23 21:41 Dose: 100 mg Glucose (Dextrose 40% Gel 15 Gm Tube) 0 gm PO PRN PRN PRN Reason: Hypoglycemia Stop: 06/29/24 18:06 Heparin Sodium (Porcine) (Heparin 5,000 Unit/Ml Vial) 5,000 unit SUBCUT Q8HR YESSENIA Stop: 06/29/24 21:59 Last Admin: 07/02/23 06:29 Dose: 5,000 unit Heparin Sodium (Porcine) (Heparin 10,000 Unit/10 Ml Vial) 2,000 unit IV PRN PRN PRN Reason: Dialysis Stop: 07/01/24 08:56 Last Admin: 07/02/23 09:58 Dose: 2,000 unit Heparin Sodium (Porcine) (Heparin 10,000 Unit/10 Ml Vial) 1,000 unit IV PRN PRN PRN Reason: Dialysis Stop: 07/01/24 08:56 Last Admin: 07/02/23 09:59 Dose: 1,000 unit Sodium Chloride (0.9% Sodium Chloride 1,000 Ml) 1,000 mls @ 0 mls/hr MISCELLANE.Q0M PRN PRN Reason: Dialysis Stop: 07/01/24 08:56 Last Infusion: 07/02/23 10:31 Dose: Infused Insulin Aspart (Insulin Aspart 300 Units/3 Ml Insuln.Pen) 0 units SUBCUT TID.[facility]; Protocol Stop: 06/29/24 21:59 Last Admin: 07/01/23 21:42 Dose: 2 units Ipratropium [place] (Ipratropium [place] 0.5 Mg/2.5 Ml Vial.Neb) 2 mg INHALATION QID.RESP [facility] Stop: 06/29/24 19:59 Last Admin: 07/02/23 07:42 Dose: 2 mg Lidocaine (Lidocaine 4% Adh..Patch) 1 patch TOPICAL BID [facility] Stop: 06/29/24 20:59 Last Admin: 07/01/23 21:41 Dose: Not Given Loratadine (Loratadine 10 Mg Tablet) 5 mg PO DAILY [facility] Stop: 06/30/24 08:59 Last Admin: 07/01/23 10:50 Dose: 5 mg Lubiprostone (Lubiprostone 8 Mcg Capsule) 8 mcg PO BID [facility] Stop: 06/29/24 20:59 Last Admin: 07/01/23 21:41 Dose: 8 mcg Melatonin (Melatonin 5 Mg Tablet) 5 mg PO QHS PRN PRN Reason: Insomnia Stop: 06/29/24 18:01 Metoprolol Tartrate (Metoprolol Tartrate 12.5 Mg Tablet) 12.5 mg PO DAILY [facility] Stop: 06/30/24 08:59 Last Admin: 07/01/23 10:50 Dose: Not Given Mexiletine HCl (Mexiletine 200 Mg Capsule) 200 mg PO Q8HR [facility] Stop: 06/29/24 21:59 Last Admin: 07/02/23 06:27 Dose: 200 mg Midodrine (Midodrine 5 Mg Tablet) 5 mg PO DAILY PRN PRN Reason: low bp Stop: 06/29/24 17:22 Last Admin: 07/02/23 10:32 Dose: 5 mg Midodrine (Midodrine 5 Mg Tablet) 5 mg PO TID.7A.12P.5P [facility] Stop: 06/30/24 06:59 Last Admin: 07/02/23 06:27 Dose: 5 mg Midodrine (Midodrine 5 Mg Tablet) 5 mg PO PRN PRN PRN Reason: Dialysis Stop: 07/01/24 08:56 Multivitamins (Multivitamin 1 Tab Tablet) 1 tab PO DAILY YESSENIA Stop: 06/30/24 08:59 Last Admin: 07/01/23 10:49 Dose: 1 tab Non-Formulary Medication (Albuterol Sulfate) 0.63 mg INHALATION QID PRN PRN Reason: Shortness Of Breath Stop: 06/29/24 17:22 Ondansetron HCl (Ondansetron Odt 4 Mg Tab.Rapdis) 4 mg PO Q6H PRN PRN Reason: Nausea Stop: 06/29/24 17:22 Ondansetron HCl (Ondansetron 4 Mg/2 Ml Vial) 4 mg IV-PUSH Q8H PRN PRN Reason: Nausea And Vomiting Stop: 06/29/24 18:01 Oxycodone/Acetaminophen (Oxycodone/Acetaminophen 5-325 Mg Tablet) 1 tab PO Q4H PRN PRN Reason: Pain Scale 4 - 7 Last Admin: 07/01/23 17:05 Dose: 1 tab Oxycodone/Acetaminophen (Oxycodone/Acetaminophen 5-325 Mg Tablet) 2 tab PO [id number] PRN Reason: pain Last Admin: 07/02/23 10:53 Dose: 2 tab Pantoprazole Sodium (Pantoprazole 40 Mg Tablet.Dr) 40 mg PO DAILY YESSENIA Stop: 06/30/24 08:59 Last Admin: 07/01/23 10:50 Dose: 40 mg Pramipexole Dihydrochloride (Pramipexole 0.5 Mg Tablet) 0.5 mg PO HS YESSENIA Stop: 06/29/24 21:59 Last Admin: 07/01/23 21:49 Dose: 0.5 mg Pregabalin (Pregabalin 50 Mg Capsule) 50 mg PO BID YESSENIA Stop: 12/27/23 20:59 Last Admin: 07/01/23 21:41 Dose: 50 mg Sodium Chloride (Sodium Chloride 0.9 % 10 Ml Syringe) 0 ml IV-PUSH PRN PRN PRN Reason: Flush Stop: 06/29/24 12:34 Last Admin: 06/30/23 21:43 Dose: 10 ml Sodium Chloride (Sodium Chloride 0.9 % 10 Ml Syringe) 0 ml IV-PUSH PRN PRN PRN Reason: Flush Stop: 07/01/24 08:56 Last Admin: 07/02/23 09:58 Dose: 10 ml Tizanidine HCl (Tizanidine 4 Mg Tablet) 4 mg PO QHS YESSENIA Stop: 06/29/24 21:59 Last Admin: 07/01/23 21:41 Dose: 4 mg Vitamin D (Cholecalciferol 25 Mcg (1,000 Units) Tablet) 25 mcg PO DAILY YESSENIA Stop: 06/30/24 08:59 Last Admin: 07/01/23 10:49 Dose: 25 mcg Allergies lisinopril Allergy (Unknown, Verified 06/30/23 12:32) Cough gabapentin Allergy (Verified 06/30/23 12:32) Swelling of Lip/Tongue/Throat Results - Nephrology Labs 06/30/23 13:04 07/02/23 09:19 Labs: 07/02/23 09:19 BUN 50 H Creatinine 4.96 H D Phosphorus 5.8 H Albumin 3.2 L Radiology Impressions Impressions - last 24 hours: Impressions Cervical Spine X-Ray 07/01/23 08:23 IMPRESSION: POSTOPERATIVE AND DEGENERATIVE CHANGES. POORLY DEMONSTRATED C2 FRACTURE THOUGH NO SIGNIFICANT ALTERED ALIGNMENT WITH FLEXION OR EXTENSION. Impression dictated by: Dianna Pedro M.D.07/01/2023 2:25 PM Dictation Location: [place] [address] Any impression(s) listed above is documentation that was entered by the reading physician into a diagnostic report(s) for Cinthya Wilson. I have reviewed the report(s) and am incorporating any findings in the treatment plan of this patient where applicable. A&P - Nephrology Assessment/Plan (1) Odontoid fracture: Assessment/Problem Details: Patient presents after a fall and was found to have ordered an fracture. Neurosurgery has been consulted and following the patient. (2) ESRD (end stage renal disease): Assessment/Problem Details: She has a ESRD due to the hypertensive nephrosclerosis and diabetic nephropathy. She currently goes to the [facility] dialysis unit 3 times a week on MWF schedule. (3) Type 2 diabetes mellitus with diabetic chronic kidney disease: Assessment/Problem Details: She has insulin-dependent type 2 diabetes mellitus. (4) Secondary hyperparathyroidism: Assessment/Problem Details: She has a secondary hyperparathyroidism due to the ESRD and hyperphosphatemia. She currently takes calcium acetate at home. 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 She takes midodrine for intradialytic hypotension. Plan * Hemodialysis today as ordered. * Continue DM management as per the primary hospitalist team. * Continue midodrine for intradialytic hypotension. * Continue management of the odontoid fracture as per the neurosurgery. * Continue home dose of the calcium acetate. * Documented By: Wood Zavala MD 07/02/23 1140 Signed By: <Electronically signed by Wood Zavala MD> 07/02/23 1143 [facility] Work Phone: 1(212) 205-368105-21-2024 Consult note Author Edie Michel [facility] July 01, 2023 3:59pm Note Date/Time July 01, 2023 2:03p m [facility] [address] [place] [address] Cardiology Consult Note Signed Patient: Cinthya Wilson MR#: [id number] : 1945 Acct:[id number] Age/Sex: 78 / F Adm Date: 4 Loc: Room: [address] [place] [address] Type: ADM IN Attending Dr: Tatiana Loya MD Copies to: MD Lily Duran II, MD Linda Njoroge, MD~ Cardiology HPI History of Present Illness Consult Date: 07/01/23 Reason for Consult: Pre-op risk stratification HPI: Ms. Wilson is a 78 year old female with past medical history significant for CADstatus post remote PCI, recurrent VT s/p dual chamber ICD, ESRD on HD, hypertension, hyperlipidemia, COPD on 3 L nasal cannula. She presented to [facility] on 06/30/2023 with generalized weakness and neck/back pain after sustaining a mechanical fall 3 days prior. CTA neck was significant for new fracture at the base of the odontoid. Neurosurgery was consulted and she is undergoing evaluation for potential surgery. Cardiology wasconsulted for pre-op risk stratification. She denies chest pain, dyspnea, palpitations, BLE edema or weight gain. She has chronic orthostatic hypotension and is currently on Midodrine. She follows up regularly with her primary clinical laboratory aide Dr. Lutz and also follows up with Dr. Rigo KINGSTON. Her CAD has been stable. EKG on admission showed atrial paced rhythm. ICD interrogation showed no atrial or ventricular arrhythmias. Underlying rhythm is sinus bradycardia in the mid 50s. A-paced 48%, V paced 22% 12/14/2022: EF 50-55%. Mild concentric LVH, mild to moderate valvular aortic stenosis, diastolic dysfunction. [facility] Medical History (Updated 07/01/23 @ 12:20 by Wood Zavala MD) Secondary hyperparathyroidism Anemia of renal disease Type 2 diabetes mellitus with diabetic chronic kidney disease Diabetes mellitus with insulin therapy Chronic hypoxemic respiratory failure ESRD (end stage renal disease) CAD (coronary artery disease) COPD (chronic obstructive pulmonary disease) Fall Carotid stenosis, bilateral End-stage renal disease (ESRD) Heart failure Missed dialysis Chronic combined systolic and diastolic CHF (congestive heart failure) Hyponatremia Pneumonia Polymyalgia Skin cancer mohs procedure for removal Neuropathy right thigh and feet Sleep apnea Irregular heart rhythm prior to stent placement per pt report Neck pain with history of cervical spinal surgery Cataract had bilateral PHACO Chronic back pain Arthritis Cervical spinal stenosis Anxiety Hyperlipidemia HTN (hypertension) [...] Family History Father Heart disease Cancer Mother Diabetes Cancer Brother Cancer Legacy FamHx Relation: Brother(s); Legacy FamHx Problem: Diagnosed with Cancer Social History Smoking Status: Never smoker Substance Use Type: None Social History Comments: adult son Meds Medications and Allergies Allergies lisinopril Allergy (Unknown, Verified 06/30/23 12:32) Cough gabapentin Allergy (Verified 06/30/23 12:32) Swelling of Lip/Tongue/Throat Home Medications atorvastatin 40 mg tablet 40 mg PO QPM 10/10/17 [History Confirmed 06/30/23] multivitamin 1 tab PO DAILY 09/07/19 [History Confirmed 06/30/23] aspirin 81 mg tablet,delayed release 81 mg PO DAILY 11/25/19 [History Confirmed 06/30/23] cholecalciferol (vitamin D3) 25 mcg (1,000 unit) tablet (Vitamin D3) 25 mcg PO DAILY 11/25/19 [History Confirmed 06/30/23] citalopram 40 mg tablet 20 mg PO DAILY 11/25/19 [History Confirmed 06/30/23] albuterol sulfate 0.63 mg/3 mL solution for nebulization 0.63 mg inhalation QID PRN SOB 06/26/21 [History Confirmed 06/30/23] docusate sodium 100 mg capsule 100 mg PO BID #60 caps 11/20/21 [Rx Confirmed 06/30/23] pen needle, diabetic 32 gauge x 5/32 (BD Ultra-Fine Lexis Pen Needle) #100 ea 11/20/21 [Rx Confirmed 06/30/23] calcium acetate(phosphat bind) 667 mg capsule 667 mg PO TID.WITH.MEALS 60 days #240 caps 02/26/22 [Rx Confirmed 06/30/23] pantoprazole 40 mg tablet,delayed release 40 mg PO DAILY 05/17/22 [History Confirmed 06/30/23] diclofenac sodium 1 % topical gel (Voltaren Arthritis Pain) 4 g topical QID #0 grams 10/31/22 [Rx Confirmed 06/30/23] furosemide 20 mg tablet 60 mg (3 x 20 mg) PO BID 30 days #180 tabs 10/31/22 [Rx Confirmed 06/30/23] fluticasone fur. 100 mcg-umeclid 62.5 mcg-vilant 25 mcg inhalat.powder (Trelegy Ellipta) 2 ea inhalation DAILY 12/06/22 [History Confirmed 06/30/23] pramipexole 0.5 mg tablet 0.5 mg PO HS 12/06/22 [History Confirmed 06/30/23] insulin lispro 100 unit/mL subcutaneous pen (Humalog KwikPen (U-100) Insulin) 1 sliding scale dose subcut ACHS 12/29/22 [History Confirmed 06/30/23] ondansetron 4 mg disintegrating tablet 4 mg PO Q6H PRN Nausea 12/29/22 [History Confirmed 06/30/23] acetaminophen 650 mg tablet,extended release (Arthritis Pain Reliever) 650 mg POQ12H PRN pain 03/05/23 [History Confirmed 06/30/23] buspirone 10 mg tablet 10 mg PO BID 03/05/23 [History Confirmed 06/30/23] metoprolol tartrate 25 mg tablet 12.5 mg PO DAILY 03/05/23 [History Confirmed 06/30/23] mexiletine 200 mg capsule 200 mg PO Q8HR 30 days #90 caps 03/07/23 [Rx Confirmed 06/30/23] pregabalin 50 mg capsule (Lyrica) 50 mg PO BID 04/01/23 [History Confirmed 06/30/23] oxycodone-acetaminophen 5 mg-325 mg tablet (Percocet) 1 - 2 tab PO Q6HR PRN pain3 days #15 tabs 04/16/23 [Rx Confirmed 06/30/23] midodrine 5 mg tablet 5 mg PO TID 06/12/23 [History Confirmed 06/30/23] lidocaine 4 % topical patch (Lidocaine Pain Relief) 1 patch topical BID 06/30/23[History Confirmed 06/30/23] loratadine 10 mg tablet (Allerclear) 5 mg PO DAILY 06/30/23 [History Confirmed 06/30/23] lubiprostone 8 mcg capsule (Amitiza) 8 mcg PO BID 06/30/23 [History Confirmed 06/30/23] midodrine 5 mg tablet 5 mg PO DAILY PRN low bp 06/30/23 [History Confirmed 06/30/23] polyethylene glycol 3350 17 gram/dose oral powder (ClearLax) 17 g PO BID 06/30/23 [History Confirmed 06/30/23] tizanidine 4 mg capsule (Zanaflex) 4 mg PO QHS 06/30/23 [History Confirmed 06/30/23] Exam Physical Exam Vital Signs: Temp Pulse Resp BP Pulse Ox O2 Del Method O2 Flow Rate 97.8 F 67 16 84/49 L 98 Room Air 2.5 07/01/23 13:11 07/01/23 13:11 07/01/23 13:11 07/01/23 13:11 07/01/23 13:11 07/01/23 13:11 07/01/23 08:16 Narrative: GEN: AAOx3. No acute distress. Neck: In cervical collar. Lungs: Clear to auscultation bilaterally Heart: Regular rate and rhythm. Normal S1 and S2. 3/6 systolic murmur Abdomen: Soft, nontender, nondistended, bowel sounds present. Extremities: No BLE edema. Neuro: AAOx3. No focal deficits. Results - Cardiology Labs 06/30/23 13:04 07/01/23 09:13 Lab results: Comprehensive Metabolic Panel 07/01/23 Range/Units 09:13 Sodium 132 L (136-145) mmol/L Potassium 3.7 (3.5-5.1) mmol/L Chloride 91 L (98-107) mmol/L Carbon Dioxide 26.4 (21.0-31.0) mmol/L BUN 35 H (7-25) mg/dL Creatinine 4.07 H D (0.60-1.20) mg/dL Glucose 312 H D (70-100) mg/dL Calcium 8.5 L (8.6-10.3) mg/dL Albumin 3.1 L (3.5-5.7) gm/dL Intake and Output 06/30/23 07/01/23 07/01/23 23:59 07:59 15:59 Intake Total 710 / 1060 800 / 800 Output Total 0 / 0 Balance 710 / 1060 800 / 800 Intake: IV 350 / 350 Piperacillin/Tazo 4.5GM-*D5* 4. 100 / 100 5 gm In 100 ml @ 200 mls/hr IV ONCE ONE Rx#:[id number] Sodium Chloride 0.9% 250 ml 250 250 / 250 ml @ 999 mls/hr IV ONCE ONE Rx #:[id number] Oral 360 / 710 800 / 800 Output: Urine 0 / 0 Other: # Bowel Movements 0 Weight 61.9 kg 61.6 kg Date of Last Bowel Movement 06/29/23 06/29/23 07/01/23 Patient Weight 07/01/23 23:59 Weight 61.6 kg Lab 06/30/23 13:04 PT 11.4 INR 1.0 APTT 33.6 A&P - Cardiology (1) Chronic hypotension: Code(s): I95.89 - Other hypotension (2) Type 2 diabetes mellitus with diabetic chronic kidney disease: Code(s): E11.22 - Type 2 diabetes mellitus with diabetic chronic kidney disease (3) CAD (coronary artery disease): Qualifiers: Associated angina: without angina Coronary Disease-Associated Artery/Lesion type: cheesh-na artery [place] vs. transplanted heart: cheesh-na heart Qualified Code(s): I25.10 - Atherosclerotic heart disease of cheesh-na coronary artery without angina pectoris Code(s): I25.10 - Atherosclerotic heart disease of cheesh-na coronary artery without angina pectoris (4) ESRD (end stage renal disease): Code(s): N18.6 - End stage renal disease (5) COPD (chronic obstructive pulmonary disease): Code(s): J44.9 - Chronic obstructive pulmonary disease, unspecified (6) Closed odontoid fracture: Qualifiers: Encounter type: initial encounter Qualified Code(s): S12.100A - Unspecified displaced fracture of second cervical vertebra, initial encounter for closed fracture Code(s): S12.100A - Unspecified displaced fracture of second cervical vertebra, initial encounter for closed fracture Plan Ms. Wlison is a 78 year old female with past medical history significant for CADstatus post remote PCI, recurrent VT s/p dual chamber ICD, ESRD on HD, hypertension, hyperlipidemia, COPD on 3 L nasal cannula. She presented after a mechanical fall and sustained an odontoid fracture. She is undergoing neurosurgery evaluation. EKG on admission showed atrial paced rhythm. ICD interrogation showed no atrial or ventricular arrhythmias. Underlying rhythm is sinus bradycardia in the mid 50s. A-paced 48%, V paced 22% 12/14/2022: EF 50-55%. Mild concentric LVH, mild to moderate valvular aortic stenosis, diastolic dysfunction. Assessment: Pre-op cardiac risk stratification Hx of CAD s/p remote PCI- stable Recurrent VT s/p ICD- stable Chronic orthostatic hypotension ESRD on HD HLD COPD Recommendations: - Pt has been ambulating with a walker without limitations. Achieves ~4 METS. Denies angina symptoms. EKG shows atrial paced rhythm without evidence of ischemia. Has chronically elevated troponin in the setting of ESRD. No concern for ongoing ischemia. - ICD interrogation shows no arrhythmias - RCRI score=3 (15% perioperative risk of MACE). Pt is elevated risk for surgerydue to multiple comorbidities. Her CAD is however stable and she is euvolemic onexam. No further cardiac work up recommended prior to surgery - Cardiology will be available perioperatively. Documented By: Edie Michel MD 07/01/23 1402 Signed By: <Electronically signed by Edie Michel MD> 07/01/23 0549 [facility] Work Phone: [phone]) 352-782105-21-2024 Consult note Author Wood Zavala [facility] July 01, 2023 12:30pm Note Date/Time July 01, 2023 12:24 pm [facility] [address] [place] [address] Nephrology Consult Note Signed Patient: Cinthya Wilson MR#: [id number] : 1945 Acct:[id number] Age/Sex: 78 / F Adm Date: 4 Loc: Room: [address] [place] [address] Type: ADM INOo Attending Dr: Tatiana Loya MD Copies to: MD Tatiana Gaines MD Daniel Berry II, MD~ Providers Consult Date: 07/01/23 Requesting Provider: Tatiana Loya MD Primary Care Provider: Lily Del Real II, MD HPI Reason for Consult: ESRD management History of Present Illness: This is a 78-year-old female well-known to to me from outpatient [facility] was presented to the emergency room after her dialysis due to the neck pain. 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 Her other comorbidities are CAD s/p PCI, COPD, chronic hypoxic diastolic failure, cardiac arrhythmia s/p AICD and dyslipidemia. Reported as she fell 3 days ago and was having excruciating pain. In the emergency room she had a CT head and neck which showed no acute intracranial bleed or stroke, stable carotid plaque and stenosis and occlusion of the right vertebral artery, new fracture at the base of the odontoid. Patient was admitted for further workup and neurosurgery was consulted. Nephrology is consulted for ESRD management during the hospital stay. Patient was seen and examined at the bedside reported that she is having a neck pain currently have acervical collar. Review of Systems Review of Systems All other systems reviewed & are negative unless noted below or in HPI Review of systems: Cardiovascular: denies any chest pain, palpitation Pulmonary: denies any cough, hemoptysis Gastrointestinal: denies any nausea, vomiting, diarrhea Neurological :denies any headache, numbness, weakness Endocrine: denies any polyuria, polydipsia Dermatological: denies any itching or rash [facility] Medical History (Updated 07/01/23 @ 12:20 by Wood Zavala MD) Secondary hyperparathyroidism Anemia of renal disease Type 2 diabetes mellitus with diabetic chronic kidney disease Diabetes mellitus with insulin therapy Chronic hypoxemic respiratory failure ESRD (end stage renal disease) CAD (coronary artery disease) COPD (chronic obstructive pulmonary disease) Fall Carotid stenosis, bilateral End-stage renal disease (ESRD) Heart failure Missed dialysis Chronic combined systolic and diastolic CHF (congestive heart failure) Hyponatremia Pneumonia Polymyalgia Skin cancer mohs procedure for removal Neuropathy right thigh and feet Sleep apnea Irregular heart rhythm prior to stent placement per pt report Neck pain with history of cervical spinal surgery Cataract had bilateral PHACO Chronic back pain Arthritis Cervical spinal stenosis Anxiety Hyperlipidemia HTN (hypertension) [...] Family History Father Heart disease Cancer Mother Diabetes Cancer Brother Cancer Legacy FamHx Relation: Brother(s); Legacy Famx Problem: Diagnosed with Cancer Social History Smoking Status: Never smoker Substance Use Type: None Social History Comments: adult son Meds Medications & Allergies Allergies lisinopril Allergy (Unknown, Verified 06/30/23 12:32) Cough gabapentin Allergy (Verified 06/30/23 12:32) Swelling of Lip/Tongue/Throat Home Medications atorvastatin 40 mg tablet 40 mg PO QPM 11/19/16 [History Confirmed 06/30/23] multivitamin 1 tab PO DAILY 09/07/19 [History Confirmed 06/30/23] aspirin 81 mg tablet,delayed release 81 mg PO DAILY 11/25/19 [History Confirmed 06/30/23] cholecalciferol (vitamin D3) 25 mcg (1,000 unit) tablet (Vitamin D3) 25 mcg PO DAILY 11/25/19 [History Confirmed 06/30/23] citalopram 40 mg tablet 20 mg PO DAILY 11/25/19 [History Confirmed 06/30/23] albuterol sulfate 0.63 mg/3 mL solution for nebulization 0.63 mg inhalation QID PRN SOB 06/26/21 [History Confirmed 06/30/23] docusate sodium 100 mg capsule 100 mg PO BID #60 caps 11/20/21 [Rx Confirmed 06/30/23] pen needle, diabetic 32 gauge x 5/32 (BD Ultra-Fine Lexis Pen Needle) #100 ea 11/20/21 [Rx Confirmed 06/30/23] calcium acetate(phosphat bind) 667 mg capsule 667 mg PO TID.WITH.MEALS 60 days #240 caps 02/26/22 [Rx Confirmed 06/30/23] pantoprazole 40 mg tablet,delayed release 40 mg PO DAILY 05/17/22 [History Confirmed 06/30/23] diclofenac sodium 1 % topical gel (Voltaren Arthritis Pain) 4 g topical QID #0 grams 10/31/22 [Rx Confirmed 06/30/23] furosemide 20 mg tablet 60 mg (3 x 20 mg) PO BID 30 days #180 tabs 10/31/22 [Rx Confirmed 06/30/23] fluticasone fur. 100 mcg-umeclid 62.5 mcg-vilant 25 mcg inhalat.powder (Trelegy Ellipta) 2 ea inhalation DAILY 12/06/22 [History Confirmed 06/30/23] pramipexole 0.5 mg tablet 0.5 mg PO HS 12/06/22 [History Confirmed 06/30/23] insulin lispro 100 unit/mL subcutaneous pen (Humalog KwikPen (U-100) Insulin) 1 sliding scale dose subcut ACHS 12/29/22 [History Confirmed 06/30/23] ondansetron 4 mg disintegrating tablet 4 mg PO Q6H PRN Nausea 12/29/22 [History Confirmed 06/30/23] acetaminophen 650 mg tablet,extended release (Arthritis Pain Reliever) 650 mg POQ12H PRN pain 03/05/23 [History Confirmed 06/30/23] buspirone 10 mg tablet 10 mg PO BID 03/05/23 [History Confirmed 06/30/23] metoprolol tartrate 25 mg tablet 12.5 mg PO DAILY 03/05/23 [History Confirmed 06/30/23] mexiletine 200 mg capsule 200 mg PO Q8HR 30 days #90 caps 03/07/23 [Rx Confirmed 06/30/23] pregabalin 50 mg capsule (Lyrica) 50 mg PO BID 04/01/23 [History Confirmed 06/30/23] oxycodone-acetaminophen 5 mg-325 mg tablet (Percocet) 1 - 2 tab PO Q6HR PRN pain3 days #15 tabs 04/16/23 [Rx Confirmed 06/30/23] midodrine 5 mg tablet 5 mg PO TID 06/12/23 [History Confirmed 06/30/23] lidocaine 4 % topical patch (Lidocaine Pain Relief) 1 patch topical BID 06/30/23[History Confirmed 06/30/23] loratadine 10 mg tablet (Allerclear) 5 mg PO DAILY 06/30/23 [History Confirmed 06/30/23] lubiprostone 8 mcg capsule (Amitiza) 8 mcg PO BID 06/30/23 [History Confirmed 06/30/23] midodrine 5 mg tablet 5 mg PO DAILY PRN low bp 06/30/23 [History Confirmed 06/30/23] polyethylene glycol 3350 17 gram/dose oral powder (ClearLax) 17 g PO BID 06/30/23 [History Confirmed 06/30/23] tizanidine 4 mg capsule (Zanaflex) 4 mg PO QHS 06/30/23 [History Confirmed 06/30/23] Active Medications: Active Medications Acetaminophen (Acetaminophen 325 Mg Tablet) 650 mg PO Q6HR PRN PRN Reason: Pain Scale 1 - 3 or fever Stop: 06/29/24 18:01 Aspirin (Aspirin 81 Mg Tablet.) 81 mg PO DAILY [facility] Stop: 06/30/24 08:59 Last Admin: 07/01/23 10:55 Dose: 81 mg Atorvastatin Calcium (Atorvastatin 40 Mg Tablet) 40 mg PO QPM YESSENIA Stop: 06/29/24 20:59 Last Admin: 06/30/23 21:45 Dose: 40 mg Bisacodyl (Bisacodyl 5 Mg Tablet.) 10 mg PO DAILY PRN PRN Reason: Constipation Stop: 06/29/24 18:01 Budesonide/Formoterol Fumarate (Budesonide/Formoterol 80-4.5 Mcg 60 Puff/6.9 Gm Hfa.Aer.Ad) 2 puff INHALATION BID YESSENIA Stop: 06/29/24 20:59 Last Admin: 07/01/23 08:14 Dose: 2 puff Buspirone HCl (Buspirone 10 Mg Tablet) 10 mg PO BID YESSENIA Stop: 06/29/24 20:59 Last Admin: 07/01/23 10:49 Dose: 10 mg Calcium Acetate (Calcium Acetate 667 Mg Capsule) 667 mg PO TID.WITH.MEALS [facility] Stop: 06/30/24 07:59 Last Admin: 07/01/23 08:45 Dose: 667 mg Citalopram Hydrobromide (Citalopram 20 Mg Tablet) 20 mg PO DAILY [facility] Stop: 06/30/24 08:59 Last Admin: 07/01/23 10:49 Dose: 20 mg Dextrose (Dextrose 50% In Water 25 Gm/50 Ml Syringe) 0 gm IV-PUSH PRN PRN PRN Reason: Hypoglycemia Stop: 06/29/24 18:06 Diclofenac Sodium (Diclofenac Sodium 1% Gel 100 Gm Tube) 4 gm TOPICAL QID [facility] Stop: 06/29/24 17:59 Last Admin: 07/01/23 10:51 Dose: 4 gm Docusate Sodium (Docusate 100 Mg Capsule) 100 mg PO BID YESSENIA Stop: 06/29/24 20:59 Last Admin: 07/01/23 10:49 Dose: 100 mg Glucose (Dextrose 40% Gel 15 Gm Tube) 0 gm PO PRN PRN PRN Reason: Hypoglycemia Stop: 06/29/24 18:06 Heparin Sodium (Porcine) (Heparin 5,000 Unit/Ml Vial) 5,000 unit SUBCUT Q8HR [facility] Stop: 06/29/24 21:59 Last Admin: 07/01/23 06:01 Dose: 5,000 unit Insulin Aspart (Insulin Aspart 300 Units/3 Ml Insuln.Pen) 0 units SUBCUT TID.WM.HS [facility]; Protocol Stop: 06/29/24 21:59 Last Admin: 07/01/23 08:43 Dose: 5 units Ipratropium [place] (Ipratropium [place] 0.5 Mg/2.5 Ml Vial.Neb) 2 mg INHALATION QID.RESP YESSENIA Stop: 06/29/24 19:59 Last Admin: 07/01/23 12:09 Dose: 2 mg Lidocaine (Lidocaine 4% Adh..Patch) 1 patch TOPICAL BID YESSENIA Stop: 06/29/24 20:59 Last Admin: 07/01/23 11:07 Dose: Not Given Loratadine (Loratadine 10 Mg Tablet) 5 mg PO DAILY YESSENIA Stop: 06/30/24 08:59 Last Admin: 07/01/23 10:50 Dose: 5 mg Lubiprostone (Lubiprostone 8 Mcg Capsule) 8 mcg PO BID YESSENIA Stop: 06/29/24 20:59 Last Admin: 07/01/23 10:49 Dose: 8 mcg Melatonin (Melatonin 5 Mg Tablet) 5 mg PO QHS PRN PRN Reason: Insomnia Stop: 06/29/24 18:01 Metoprolol Tartrate (Metoprolol Tartrate 12.5 Mg Tablet) 12.5 mg PO DAILY YESSENIA Stop: 06/30/24 08:59 Last Admin: 07/01/23 10:50 Dose: Not Given Mexiletine HCl (Mexiletine 200 Mg Capsule) 200 mg PO Q8HR YESSENIA Stop: 06/29/24 21:59 Last Admin: 07/01/23 06:01 Dose: 200 mg Midodrine (Midodrine 5 Mg Tablet) 5 mg PO DAILY PRN PRN Reason: low bp Stop: 06/29/24 17:22 Midodrine (Midodrine 5 Mg Tablet) 5 mg PO TID.7A.12P.5P [facility] Stop: 06/30/24 06:59 Last Admin: 07/01/23 06:01 Dose: 5 mg Multivitamins (Multivitamin 1 Tab Tablet) 1 tab PO DAILY YESSENIA Stop: 06/30/24 08:59 Last Admin: 07/01/23 10:49 Dose: 1 tab Non-Formulary Medication (Albuterol Sulfate) 0.63 mg INHALATION QID PRN PRN Reason: Shortness Of Breath Stop: 06/29/24 17:22 Ondansetron HCl (Ondansetron Odt 4 Mg Tab.Rapdis) 4 mg PO Q6H PRN PRN Reason: Nausea Stop: 06/29/24 17:22 Ondansetron HCl (Ondansetron 4 Mg/2 Ml Vial) 4 mg IV-PUSH Q8H PRN PRN Reason: Nausea And Vomiting Stop: 06/29/24 18:01 Oxycodone/Acetaminophen (Oxycodone/Acetaminophen 5-325 Mg Tablet) 1 tab PO Q4H PRN PRN Reason: Pain Scale 4 - 7 Last Admin: 07/01/23 10:49 Dose: 1 tab Oxycodone/Acetaminophen (Oxycodone/Acetaminophen 5-325 Mg Tablet) 2 tab PO [id number] PRN Reason: pain Last Admin: 07/01/23 00:20 Dose: 2 tab Pantoprazole Sodium (Pantoprazole 40 Mg Tablet.Dr) 40 mg PO DAILY YESSENIA Stop: 06/30/24 08:59 Last Admin: 07/01/23 10:50 Dose: 40 mg Pramipexole Dihydrochloride (Pramipexole 0.5 Mg Tablet) 0.5 mg PO HS [facility] Stop: 06/29/24 21:59 Last Admin: 06/30/23 21:44 Dose: 0.5 mg Pregabalin (Pregabalin 50 Mg Capsule) 50 mg PO BID YESSENIA Stop: 12/27/23 20:59 Last Admin: 07/01/23 10:49 Dose: 50 mg Sodium Chloride (Sodium Chloride 0.9 % 10 Ml Syringe) 0 ml IV-PUSH PRN PRN PRN Reason: Flush Stop: 06/29/24 12:34 Last Admin: 06/30/23 21:43 Dose: 10 ml Tizanidine HCl (Tizanidine 4 Mg Tablet) 4 mg PO QHS YESSENIA Stop: 06/29/24 21:59 Last Admin: 06/30/23 21:44 Dose: 4 mg Vitamin D (Cholecalciferol 25 Mcg (1,000 Units) Tablet) 25 mcg PO DAILY YESSENIA Stop: 06/30/24 08:59 Last Admin: 07/01/23 10:49 Dose: 25 mcg Exam Physical Exam Vital Signs: Temp Pulse Resp BP Pulse Ox O2 Del Method O2 Flow Rate 97.7 F 62 16 86/40 L 98 Room Air 2.5 07/01/23 08:40 07/01/23 08:40 07/01/23 08:40 07/01/23 08:40 07/01/23 08:40 07/01/23 08:40 07/01/23 08:16 Narrative: General: Appears comfortable and not in distress Heart: S1-S2, no rub Lung: Bilateral air entry, no wheezing or crackles Abdomen: Soft, positive bowel sounds Extremities: No edema, no cyanosis Head: Atraumatic, normocephalic Ear: No gross hearing Deficit or external ear redness Eyes: No pallor or redness Neck: No JVD or visible mass Skin: No rashes , warm to touch [employer]: Awake,Alert, following simple command Musculoskeletal: No swelling or limitation of movement of the large joints Psychiatric: Cooperative, normal mood and affect Results - Nephrology Labs 06/30/23 13:04 07/01/23 09:13 Labs: 06/30/23 07/01/23 13:04 09:13 BUN 19 35 H Creatinine 2.63 H 4.07 H D Phosphorus 4.7 H Albumin 3.1 L Radiology Impressions Impressions - last 24 hours: Impressions Chest X-Ray 06/30/23 12:49 IMPRESSION: PERSISTENT RIGHT PLEURAL-PARENCHYMAL CHANGE. AP PELVIS: COMPARISON: 12/30/2022 There is osteopenia. No acute fractures are identified. No dislocation at the hips is seen. The hip joint spaces are symmetric. There is some degenerative change at the hips, SI joints and imaged lumbar spine were dextroscoliosis is also noted. The SI joints are intact. There are no soft tissue abnormalities. Atherosclerotic plaque is visualized. IMPRESSION: OSTEOPENIA AND DEGENERATIVE CHANGES. NO ACUTE BONY INJURY WITHIN THE LIMITS OF THIS SINGLE VIEW. RIGHT FOOT - 3 views COMPARISON: None AP, lateral and oblique views were obtained. A fracture at the base of the fifth metatarsal is possible although not definitely acute. Clinical correlation is recommended. No other suspected acute fractures or dislocation are seen. The cortex at the lateral tuft and base of the distal phalanx of the first toe slightly indistinct and this might relate to the osteopenia however given the history, correlation is recommended to assure there is no possibility of osteomyelitis. Minor spurring is seen at the dorsum of the tarsals. Tiny calcaneal spurs are noted. There is no prominent soft tissue swelling. There is atherosclerotic disease. IMPRESSION: POSSIBLE OLD FRACTURE AT THE BASE OF FIFTH METATARSAL. FOCAL CLINICAL CORRELATION IS SUGGESTED. SUBTLE BONY CHANGES AT THE DISTAL PHALANX OF THE FIRST TOE. OSTEOMYELITIS IS DIFFICULT TO EXCLUDE, PARTICULARLY GIVEN THE LACK OF PRIORS FOR CORRELATION. CLINICAL FOLLOW-UP IS RECOMMENDED. Impression dictated by: Dianna Pedro M.D.06/30/2023 4:20 PM Dictation Location: [facility]--[address] 06/30/23 12:49 IMPRESSION: ATROPHY AND CHRONIC MICROVASCULAR CHANGES. NO ACUTE INTRACRANIAL ABNORMALITY. Impression dictated by: Dianna Pedro M.D.06/30/2023 3:37 PM Dictation Location: [facility]--02 Neck CTA 06/30/23 12:49 IMPRESSION: STABLE CAROTID PLAQUE AND STENOSIS. SEVERE STENOSIS AND/OR OCCLUSION OF THE RIGHT VERTEBRAL ARTERY, UNCHANGED. EXTENSIVE POSTOPERATIVE AND DEGENERATIVE CHANGES AT THE CERVICAL SPINE WHERE A NEW FRACTURE AT THE BASE OF THE ODONTOID IS SEEN. Impression dictated by: Dianna Pedro M.D.06/30/2023 3:54 PM Dictation Location: [facility]-[address] 06/30/23 12:49 IMPRESSION: OSTEOPENIA, REVERSE S-SHAPED SCOLIOTIC CURVATURE AND DISCOVERTEBRAL DEGENERATIVECHANGES MOST NOTABLE IN THE LUMBAR REGION. NO OBVIOUS ACUTE THORACIC OR LUMBAR COMPRESSION FRACTURES. INCIDENTAL FINDINGS INCLUDING A PERSISTENT RIGHT PLEURAL EFFUSION WITH ADJACENT LOWER LOBE CONSOLIDATION. Impression dictated by: Dianna Pedro M.D.06/30/2023 4:08 PM Dictation Location: [place] [address] Any impression(s) listed above is documentation that was entered by the reading physician into a diagnostic report(s) for Cinthya Wilson. I have reviewed the report(s) and am incorporating any findings in the treatment plan of this patient where applicable. A&P - Nephrology Assessment/Plan (1) Odontoid fracture: Assessment/Problem Details: Patient presents after a fall and was found to have ordered an fracture. Neurosurgery has been consulted and following the patient. (2) ESRD (end stage renal disease): Assessment/Problem Details: She has a ESRD due to the hypertensive nephrosclerosis and diabetic nephropathy. She currently goes to the [facility] dialysis unit 3 times a week on MWF schedule. (3) Type 2 diabetes mellitus with diabetic chronic kidney disease: Assessment/Problem Details: She has insulin-dependent type 2 diabetes mellitus. (4) Secondary hyperparathyroidism: Assessment/Problem Details: She has a secondary hyperparathyroidism due to the ESRD and hyperphosphatemia. She currently takes calcium acetate at home. 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 She takes midodrine for intradialytic hypotension. Plan * No need for dialysis today. Next dialysis will be tomorrow as per schedule. * Continue DM management as per the primary hospitalist team. * Continue midodrine for intradialytic hypotension. * Continue management of the odontoid fracture as per the neurosurgery. * Continue home dose of the calcium acetate. * Thanks for consult. Will continue to follow with you. Please feel free to call us with any question. Documented By: Wood Zavala MD 07/01/23 1211 Signed By: <Electronically signed by Wood Zavala MD> 07/01/23 1230 [facility] Work Phone: 1(728) 500-474105-21-2024 Progress note Author Tatiana Loya [facility] July 01, 2023 9:25am Note Date/Time July 01, 2023 9:22a m [facility] [address] [place] [address] Hospitalist Progress Note Signed Patient: Cinthya Wilson MR#: [id number] : 1945 Acct:[id number] Age/Sex: 78 / F Adm Date: 4 Loc: Room: [address] [place] [address] Type: ADM INOo Attending Dr: Tatiana Loya MD Copies to: ~ Date of Service: 07/01/2023 Subjective Subjective Narrative: 78-year-old white female past medical history of hypertension, hyperlipidemia, diabetes type 2, end-stage renal disease on hemodialysis, chronic COPD, sleep apnea GERD, anxiety, sleep apnea, and chronic neck and back pain who presented to emergency room with generalized weakness, generalized pain and fall. She hasbeen complaining of neck and back pain for the last 3 days. She has episode of fall 3 days ago. She has been complaining of blurred vision for no double vision no dizziness. No slurred speech. No headache. no upper extremity or lower extremity weakness. No upper extremity or lower extremity numbness or tingling. She denies having dizziness. No syncopal episode. She denies any chest pain or shortness of breath. She denies having abdominal pain. No diarrhea. She denies having dysuria, hematuria, frequency. No hematemesis, melena or hematochezia. CT brain no acute intracranial bleed. CTA neck showed stable carotid plaque and stenosis and occlusion of the right vertebral artery unchanged with extensive postoperative and degenerative changes at the cervical spine and NEW FRACTURE AT THE BASE OF THE ODONTOID IS SEEN. Exam Physical Exam Vital Signs: Temp Pulse Resp BP Pulse Ox O2 Del Method O2 Flow Rate 98.0 F 63 20 94/60 L 99 Nasal Cannula 2.5 07/01/23 05:56 07/01/23 08:19 07/01/23 08:19 07/01/23 05:56 07/01/23 05:56 07/01/23 08:16 07/01/23 08:16 Narrative: General patient laying in bed in [...] no rash or lesions Objective Lab Results 06/30/23 13:04 06/30/23 13:04 Meds Allergies and Active Meds Allergies lisinopril Allergy (Unknown, Verified 06/30/23 12:32) Cough gabapentin Allergy (Verified 06/30/23 12:32) Swelling of Lip/Tongue/Throat Active Meds: Active Medications Generic Name Dose Route Start Last Admin Trade Name Freq PRN Reason Stop Dose Admin Acetaminophen 650 mg 06/30/23 18:02 Acetaminophen 325 Mg Tablet PO 06/29/24 18:01 Q6HR PRN Pain Scale 1 - 3 or fever Aspirin 81 mg 07/01/23 09:00 Aspirin 81 Mg Tablet. PO 06/30/24 08:59 DAILY YESSENIA Atorvastatin Calcium 40 mg 06/30/23 21:00 06/30/23 21:45 Atorvastatin 40 Mg Tablet PO 06/29/24 20:59 40 mg QPM YESSENIA Administration Bisacodyl 10 mg 06/30/23 18:02 Bisacodyl 5 Mg Tablet. PO 06/29/24 18:01 DAILY PRN Constipation Budesonide/Formoterol Fumarate 2 puff 06/30/23 21:00 07/01/23 08:14 Budesonide/Formoterol 80-4.5 Mcg 60 Puff/6.9 Gm Hfa.Aer.Ad INHALATION 06/29/24 20:59 2 puff BID YESSENIA Administration Buspirone HCl 10 mg 06/30/23 21:00 06/30/23 21:45 Buspirone 10 Mg Tablet PO 06/29/24 20:59 10 mg BID YESSENIA Administration Calcium Acetate 667 mg 07/01/23 08:00 07/01/23 08:45 Calcium Acetate 667 Mg Capsule PO 06/30/24 07:59 667 mg TID.WITH.MEALS YESSENIA Administration Citalopram Hydrobromide 20 mg 07/01/23 09:00 Citalopram 20 Mg Tablet PO 06/30/24 08:59 DAILY YESSENIA Dextrose 0 gm 06/30/23 18:07 Dextrose 50% In Water 25 Gm/50 Ml Syringe IV-PUSH 06/29/24 18:06 PRN PRN Hypoglycemia Diclofenac Sodium 4 gm 06/30/23 18:00 06/30/23 23:04 Diclofenac Sodium 1% Gel 100 Gm Tube TOPICAL 06/29/24 17:59 Not Given QID YESSENIA Docusate Sodium 100 mg 06/30/23 21:00 06/30/23 21:45 Docusate 100 Mg Capsule PO 06/29/24 20:59 100 mg BID YESSENIA Administration Glucose 0 gm 06/30/23 18:07 Dextrose 40% Gel 15 Gm Tube PO 06/29/24 18:06 PRN PRN Hypoglycemia Heparin Sodium (Porcine) 5,000 unit 06/30/23 22:00 07/01/23 06:01 Heparin 5,000 Unit/Ml Vial SUBCUT 06/29/24 21:59 5,000 unit Q8HR YESSENIA Administration Insulin Aspart 0 units 06/30/23 22:00 07/01/23 08:43 Insulin Aspart 300 Units/3 Ml Insuln.Pen SUBCUT 06/29/24 21:59 5 units TID.WM.HS YESSENIA Administration Protocol Ipratropium [place] 2 mg 06/30/23 20:00 07/01/23 08:10 Ipratropium [place] 0.5 Mg/2.5 Ml Vial.Neb INHALATION 06/29/24 19:59 2 mg QID.RESP YESSENIA Administration Lidocaine 1 patch 06/30/23 21:00 06/30/23 21:59 Lidocaine 4% Adh..Patch TOPICAL 06/29/24 20:59 Not Given BID [facility] Loratadine 5 mg 07/01/23 09:00 Loratadine 10 Mg Tablet PO 06/30/24 08:59 DAILY YESSENIA Lubiprostone 8 mcg 06/30/23 21:00 06/30/23 21:58 Lubiprostone 8 Mcg Capsule PO 06/29/24 20:59 8 mcg BID [facility] Administration Melatonin 5 mg 06/30/23 18:02 Melatonin 5 Mg Tablet PO 06/29/24 18:01 QHS PRN Insomnia Metoprolol Tartrate 12.5 mg 07/01/23 09:00 Metoprolol Tartrate 12.5 Mg Tablet PO 06/30/24 08:59 DAILY YESSENIA Mexiletine HCl 200 mg 06/30/23 22:00 07/01/23 06:01 Mexiletine 200 Mg Capsule PO 06/29/24 21:59 200 mg Q8HR [facility] Administration Midodrine 5 mg 06/30/23 17:23 Midodrine 5 Mg Tablet PO 06/29/24 17:22 DAILY PRN low bp Midodrine 5 mg 07/01/23 07:00 07/01/23 06:01 Midodrine 5 Mg Tablet PO 06/30/24 06:59 5 mg TID.7A.12P.5P YESSENIA Administration Multivitamins 1 tab 07/01/23 09:00 Multivitamin 1 Tab Tablet PO 06/30/24 08:59 DAILY [facility] Non-Formulary Medication 0.63 mg 06/30/23 17:23 Albuterol Sulfate INHALATION 06/29/24 17:22 QID PRN Shortness Of Breath Ondansetron HCl 4 mg 06/30/23 17:23 Ondansetron Odt 4 Mg Tab.Rapdis PO 06/29/24 17:22 Q6H PRN Nausea Ondansetron HCl 4 mg 06/30/23 18:02 Ondansetron 4 Mg/2 Ml Vial IV-PUSH 06/29/24 18:01 Q8H PRN Nausea And Vomiting Oxycodone/Acetaminophen 1 tab 06/30/23 18:02 Oxycodone/Acetaminophen 5-325 Mg Tablet PO Q4H PRN Pain Scale 4 - 7 Oxycodone/Acetaminophen 2 tab 06/30/23 23:49 07/01/23 00:20 Oxycodone/Acetaminophen 5-325 Mg Tablet PO 2 tab Q6HR PRN Administration pain Pantoprazole Sodium 40 mg 07/01/23 09:00 Pantoprazole 40 Mg Tablet.Dr PO 06/30/24 08:59 DAILY YESSENIA Pramipexole Dihydrochloride 0.5 mg 06/30/23 22:00 06/30/23 21:44 Pramipexole 0.5 Mg Tablet PO 06/29/24 21:59 0.5 mg HS YESSENIA Administration Pregabalin 50 mg 06/30/23 21:00 06/30/23 21:44 Pregabalin 50 Mg Capsule PO 12/27/23 20:59 50 mg BID YESSENIA Administration Sodium Chloride 0 ml 06/30/23 12:35 06/30/23 21:43 Sodium Chloride 0.9 % 10 Ml Syringe IV-PUSH 06/29/24 12:34 10 ml PRN PRN Administration Flush Tizanidine HCl 4 mg 06/30/23 22:00 06/30/23 21:44 Tizanidine 4 Mg Tablet PO 06/29/24 21:59 4 mg QHS YESSENIA Administration Vitamin D 25 mcg 07/01/23 09:00 Cholecalciferol 25 Mcg (1,000 Units) Tablet PO 06/30/24 08:59 DAILY YESSENIA A&P - Hospitalist Assessment/Plan (1) Closed odontoid fracture: (2) Fall: (3) Anxiety and depression: (4) ESRD (end stage renal disease): (5) Diabetes mellitus with insulin therapy: (6) Primary hypertension: Plan Close odontoid fracture Mechanical fall Seen and examined Clinically stable C/O neck pain Discussed with neurosurgery Will need Surgery to fix neck fracture Change to inpatient admit Fall precaution CT brain: No acute intracranial bleeding CTA neck stable carotid plaque and stenosis and occlusion of the right vertebral artery unchanged with extensive postoperative and degenerative changes at the cervical spine and NEW FRACTURE AT THE BASE OF THE ODONTOID IS SEEN. CT lumbar spine OSTEOPENIA, REVERSE S-SHAPED SCOLIOTIC CURVATURE AND DISCOVERTEBRAL DEGENERATIVECHANGES MOST NOTABLE IN THE LUMBAR REGION. NO OBVIOUS ACUTE THORACIC OR LUMBAR COMPRESSION FRACTURES. INCIDENTAL FINDINGS INCLUDING A PERSISTENT RIGHT PLEURAL EFFUSION WITH ADJACENT LOWER LOBE CONSOLIDATIO Percocet 1 to 2 tablets every 4 hours as needed for pain PT OT evaluation End-stage renal disease Nephrology consult for dialysis Hypertension: Resume Lopressor Hyperlipidemia: Resume Lipitor CAD: Resume aspirin and Lipitor Depression anxiety: Resume citalopram Foot ulcer: Healing/no fever leukocytosis/x-ray/ no osteo/wound care, DVT prophylaxis heparin Documented By: Tatiana Loya MD 07/01/23 0919 Signed By: <Electronically signed by Tatiana Loya MD> 07/01/23 3652 [facility] Work Phone: 1(342) 672-743905-21-2024 Consult note Author Seth Weiss [facility] July 01, 2023 8:19am Note Date/Time July 01, 2023 8:19a m [facility] [address] [place] [address] Neurosurgery Consult Note Signed Patient: Cinthya Wilson MR#: [id number] : 1945 Acct:[id number] Age/Sex: 78 / F Adm Date: 4 Loc: Room: [address] [place] [address] Type: ADM INOo Attending Dr: Tatiana Loya MD Copies to: MD Seth Duran MD Daniel Berry II, MD~ HPI History of Present Illness Consult Date: 07/01/2023 Requesting Provider: CC: Tatiana Loya MD Reason for Consult: C2 fracture and generalized weakness History of Present Illness: 78-year-old white female past medical history of hypertension, hyperlipidemia, diabetes type 2, end-stage renal disease on hemodialysis, chronic COPD, sleep apnea GERD, anxiety, sleep apnea, and chronic neck and back pain who presented to emergency room with generalized weakness, generalized pain and fall. She hasbeen complaining of neck pain for about 6 months and needing received an injection by neurology. Most recently she has had severe pain for the last 3 days. She has episode of fall 3 days ago. She has been complaining of blurred vision for no double vision no dizziness. No slurred speech. No headache. no upper extremity or lower extremity weakness. No upper extremity or lower extremity numbness or tingling. She denies having dizziness. No syncopal episode. She denies any chest pain or shortness of breath. She denies having abdominal pain. No diarrhea. She denies having dysuria, hematuria, frequency. No hematemesis, melena or hematochezia. CT brain no acute intracranial bleed. Review of Systems Review of Systems All other systems reviewed & are negative unless noted below or in HPI [facility] Medical History Diabetes mellitus with insulin therapy Chronic hypoxemic respiratory failure ESRD (end stage renal disease) CAD (coronary artery disease) COPD (chronic obstructive pulmonary disease) Fall Carotid stenosis, bilateral End-stage renal disease (ESRD) Heart failure Missed dialysis Chronic combined systolic and diastolic CHF (congestive heart failure) Secondary hyperparathyroidism Anemia of renal disease Benign hypertension with end-stage renal disease Type 2 diabetes mellitus with diabetic chronic kidney disease Hyponatremia AV fistula left Pneumonia Polymyalgia GERD (gastroesophageal reflux disease) Anxiety and depression Skin cancer mohs procedure for removal Neuropathy right thigh and feet Sleep apnea Irregular heart rhythm prior to stent placement per pt report Neck pain with history of cervical spinal surgery Cataract had bilateral PHACO Chronic back pain Arthritis Cervical spinal stenosis Anxiety Hyperlipidemia HTN (hypertension) [...] Family History Father Heart disease Cancer Mother Diabetes Cancer Brother Cancer Legacy FamHx Relation: Brother(s); Legacy FamHx Problem: Diagnosed with Cancer Social History Smoking Status: Never smoker Substance Use Type: None Social History Comments: adult son Meds Medications and Allergies Allergies lisinopril Allergy (Unknown, Verified 06/30/23 12:32) Cough gabapentin Allergy (Verified 06/30/23 12:32) Swelling of Lip/Tongue/Throat Home Medications atorvastatin 40 mg tablet 40 mg PO QPM 11/19/16 [History Confirmed 06/30/23] multivitamin 1 tab PO DAILY 09/07/19 [History Confirmed 06/30/23] aspirin 81 mg tablet,delayed release 81 mg PO DAILY 11/25/19 [History Confirmed 06/30/23] cholecalciferol (vitamin D3) 25 mcg (1,000 unit) tablet (Vitamin D3) 25 mcg PO DAILY 11/25/19 [History Confirmed 06/30/23] citalopram 40 mg tablet 20 mg PO DAILY 11/25/19 [History Confirmed 06/30/23] albuterol sulfate 0.63 mg/3 mL solution for nebulization 0.63 mg inhalation QID PRN SOB 06/26/21 [History Confirmed 06/30/23] docusate sodium 100 mg capsule 100 mg PO BID #60 caps 11/20/21 [Rx Confirmed 06/30/23] pen needle, diabetic 32 gauge x 5/32 (BD Ultra-Fine Lexis Pen Needle) #100 ea 11/20/21 [Rx Confirmed 06/30/23] calcium acetate(phosphat bind) 667 mg capsule 667 mg PO TID.WITH.MEALS 60 days #240 caps 02/26/22 [Rx Confirmed 06/30/23] pantoprazole 40 mg tablet,delayed release 40 mg PO DAILY 05/17/22 [History Confirmed 06/30/23] diclofenac sodium 1 % topical gel (Voltaren Arthritis Pain) 4 g topical QID #0 grams 10/31/22 [Rx Confirmed 06/30/23] furosemide 20 mg tablet 60 mg (3 x 20 mg) PO BID 30 days #180 tabs 10/31/22 [Rx Confirmed 06/30/23] fluticasone fur. 100 mcg-umeclid 62.5 mcg-vilant 25 mcg inhalat.powder (Trelegy Ellipta) 2 ea inhalation DAILY 12/06/22 [History Confirmed 06/30/23] pramipexole 0.5 mg tablet 0.5 mg PO HS 12/06/22 [History Confirmed 06/30/23] insulin lispro 100 unit/mL subcutaneous pen (Humalog KwikPen (U-100) Insulin) 1 sliding scale dose subcut ACHS 12/29/22 [History Confirmed 06/30/23] ondansetron 4 mg disintegrating tablet 4 mg PO Q6H PRN Nausea 12/29/22 [History Confirmed 06/30/23] acetaminophen 650 mg tablet,extended release (Arthritis Pain Reliever) 650 mg POQ12H PRN pain 03/05/23 [History Confirmed 06/30/23] buspirone 10 mg tablet 10 mg PO BID 03/05/23 [History Confirmed 06/30/23] metoprolol tartrate 25 mg tablet 12.5 mg PO DAILY 03/05/23 [History Confirmed 06/30/23] mexiletine 200 mg capsule 200 mg PO Q8HR 30 days #90 caps 03/07/23 [Rx Confirmed 06/30/23] pregabalin 50 mg capsule (Lyrica) 50 mg PO BID 04/01/23 [History Confirmed 06/30/23] oxycodone-acetaminophen 5 mg-325 mg tablet (Percocet) 1 - 2 tab PO Q6HR PRN pain3 days #15 tabs 04/16/23 [Rx Confirmed 06/30/23] midodrine 5 mg tablet 5 mg PO TID 06/12/23 [History Confirmed 06/30/23] lidocaine 4 % topical patch (Lidocaine Pain Relief) 1 patch topical BID 06/30/23[History Confirmed 06/30/23] loratadine 10 mg tablet (Allerclear) 5 mg PO DAILY 06/30/23 [History Confirmed 06/30/23] lubiprostone 8 mcg capsule (Amitiza) 8 mcg PO BID 06/30/23 [History Confirmed 06/30/23] midodrine 5 mg tablet 5 mg PO DAILY PRN low bp 06/30/23 [History Confirmed 06/30/23] polyethylene glycol 3350 17 gram/dose oral powder (ClearLax) 17 g PO BID 06/30/23 [History Confirmed 06/30/23] tizanidine 4 mg capsule (Zanaflex) 4 mg PO QHS 06/30/23 [History Confirmed 06/30/23] Exam Physical Exam Vital Signs: Temp Pulse Resp BP Pulse Ox O2 Del Method O2 Flow Rate 98.0 F 62 18 94/60 L 99 Nasal Cannula 2 07/01/23 05:56 07/01/23 05:56 07/01/23 05:56 07/01/23 05:56 07/01/23 05:56 07/01/23 05:56 07/01/23 05:56 Narrative: Patient alert and oriented by 3 Neck supple Affect appropriate Cranial nerves II through XII intact and symmetrical Deltoid bicep tricep and spotlight operator 5/5 bilateral, unable to evaluate deltoids Upper extremity sensory normal to light touch throughout Iliopsoas hamstring quadriceps anterior tibial gastrocnemius 5/5 bilaterally Lower extremity sensory normal light touch throughout Upper extremity range of motion limited to not even horizontal motion of the arms because of shoulder arthropathy bilateral. Hands are severely arthritic painful to make them squeezing object with the painbeing in the joints. Results - Neurosurgery Lab Results Labs: Laboratory Results - Last 48 hrs. 07/01/23 06:36: POC Glucose 254 06/30/23 21:22: POC Glucose 131 06/30/23 18:26: Troponin I High Sens 35.0 H 06/30/23 13:04: Corrected WBC 9.4, Uncorrected WBC Count 9.4, RBC 4.23, Hgb 12.2, Hct 37.4, MCV 88.3, MCH 28.8, MCHC 32.6, RDW 18.3 H, Plt Count 143 L, MPV 8.5, Neut % (Auto) 82.7, Lymph % (Auto) 7.5, Bandera % (Auto) 9.2, Eos % (Auto) 0.3, Baso % (Auto) 0.3, Nucleat RBC Rel Count 0.0, Neut # (Auto) 7.7, Lymph # (Auto) 0.7 L, Band[place] # (Auto) 0.9 H, Eos # (Auto) 0.0, Baso # (Auto) 0.0, MonocyteDist Width 25.76 H, ESR 102 H, PT 11.4, INR 1.0, APTT 33.6, PHA Creatinine Clear15.71, Sodium 133 L, Potassium 3.4 L, Chloride 90 L, Carbon Dioxide 26.5, Anion Gap 19.9 H, BUN 19, Creatinine 2.63 H, Est GFR (CKD-EPI) 18.296, Glucose 130 H, Calcium 9.4, Total Creatine Kinase 108, Troponin I High Sens 43.7 H, C-Reactive Prot, Quant 21.7 H, B-Natriuretic Peptide 794.0 H, Free T4 0.91, TSH 3rd Generation 2.[address] Scan - head: report reviewed and image reviewed CT scan - cervical: report reviewed and image reviewed CT Scan - thorax: report reviewed and image reviewed CT Scan - lumbar: report reviewed and image reviewed Additional studies: CTA neck 05/27/2023 images and report Assessment/Plan (1) Closed odontoid fracture: Qualifiers: Encounter type: initial encounter Qualified Code(s): S12.100A - Unspecified displaced fracture of second cervical vertebra, initial encounter for closed fracture (2) Primary hypertension: Plan Independently reviewed the CT of the head, the CT of the cervical spine, the previous CT of the cervical spine done in April 2023, and the CT of the thoracicspine. This patient has a new fracture of the odontoid type II. I will most likely order a flexion and extension view of the neck. She needs cardiac clearance. This patient also has multiple comorbidities. I discussed options with this patient to include simply wearing a collar, halo, and surgical intervention. I would like to see an MRI of the cervical spine. A flexion and extension view of the cervical spine. And I will make a decision over the next day. Documented By: Seth Weiss MD 07/01/23 0727 Signed By: <Electronically signed by MD Seth Weiss> 07/01/23 0819 [facility] Work Phone: 1(443) 394-392505-20-2024 History and physical note Author Tatiana Loya [facility] June 30, 2023 6:01pm Note Date/Time June 30, 2023 5:23p m [facility] [address] [place] [address] Hospitalist H&P Signed Patient: Cinthya Wilson MR#: [id number] : 1945 Acct:[id number] Age/Sex: 78 / F Adm Date: 4 Loc: ER Room: Type: [facility] ER Attending Dr: Copies to: MD Gillian Duran MD Daniel Berry II, MD~ HPI DATE OF EXAMINATION: 06/30/23 CHIEF COMPLAINT: Generalized weakness plan for HISTORY OF PRESENT ILLNESS: 78-year-old white female past medical history of hypertension, hyperlipidemia, diabetes type 2, end-stage renal disease on hemodialysis, chronic COPD, sleep apnea GERD, anxiety, sleep apnea, and chronic neck and back pain who presented to emergency room with generalized weakness, generalized pain and fall. She hasbeen complaining of neck and back pain for the last 3 days. She has episode of fall 3 days ago. She has been complaining of blurred vision for no double vision no dizziness. No slurred speech. No headache. no upper extremity or lower extremity weakness. No upper extremity or lower extremity numbness or tingling. She denies having dizziness. No syncopal episode. She denies any chest pain or shortness of breath. She denies having abdominal pain. No diarrhea. She denies having dysuria, hematuria, frequency. No hematemesis, melena or hematochezia. CT brain no acute intracranial bleed. CTA neck showed stable carotid plaque and stenosis and occlusion of the right vertebral artery unchanged with extensive postoperative and degenerative changes at the cervical spine and NEW FRACTURE AT THE BASE OF THE ODONTOID IS SEEN. Review of Systems Review of Systems All other systems reviewed & are negative unless noted below or in HPI [facility] Medical History (Updated 06/30/23 @ 17:53 by Tatiana Loya MD) Diabetes mellitus with insulin therapy Chronic hypoxemic respiratory failure ESRD (end stage renal disease) CAD (coronary artery disease) COPD (chronic obstructive pulmonary disease) Fall Carotid stenosis, bilateral End-stage renal disease (ESRD) Heart failure Missed dialysis Chronic combined systolic and diastolic CHF (congestive heart failure) Secondary hyperparathyroidism Anemia of renal disease Benign hypertension with end-stage renal disease Type 2 diabetes mellitus with diabetic chronic kidney disease Hyponatremia AV fistula left Pneumonia Polymyalgia GERD (gastroesophageal reflux disease) Anxiety and depression Skin cancer mohs procedure for removal Neuropathy right thigh and feet Sleep apnea Irregular heart rhythm prior to stent placement per pt report Neck pain with history of cervical spinal surgery Cataract had bilateral PHACO Chronic back pain Arthritis Cervical spinal stenosis Anxiety Hyperlipidemia HTN (hypertension) [...] Family History Father Heart disease Cancer Mother Diabetes Cancer Brother Cancer Legacy FamHx Relation: Brother(s); Legacy FamHx Problem: Diagnosed with Cancer Social History Smoking Status: Never smoker Substance Use Type: None Social History Comments: adult son Meds Medications and Allergies Allergies lisinopril Allergy (Unknown, Verified 06/30/23 12:32) Cough gabapentin Allergy (Verified 06/30/23 12:32) Swelling of Lip/Tongue/Throat Home Medications atorvastatin 40 mg tablet 40 mg PO QPM 11/19/16 [History Confirmed 06/30/23] multivitamin 1 tab PO DAILY 09/07/19 [History Confirmed 06/30/23] aspirin 81 mg tablet,delayed release 81 mg PO DAILY 11/25/19 [History Confirmed 06/30/23] cholecalciferol (vitamin D3) 25 mcg (1,000 unit) tablet (Vitamin D3) 25 mcg PO DAILY 11/25/19 [History Confirmed 06/30/23] citalopram 40 mg tablet 20 mg PO DAILY 11/25/19 [History Confirmed 06/30/23] albuterol sulfate 0.63 mg/3 mL solution for nebulization 0.63 mg inhalation QID PRN SOB 06/26/21 [History Confirmed 06/30/23] docusate sodium 100 mg capsule 100 mg PO BID #60 caps 11/20/21 [Rx Confirmed 06/30/23] pen needle, diabetic 32 gauge x 32 (BD Ultra-Fine Lexis Pen Needle) #100 ea 11/20/21 [Rx Confirmed 06/30/23] calcium acetate(phosphat bind) 667 mg capsule 667 mg PO TID.WITH.MEALS 60 days #240 caps 02/26/22 [Rx Confirmed 06/30/23] pantoprazole 40 mg tablet,delayed release 40 mg PO DAILY 05/17/22 [History Confirmed 06/30/23] diclofenac sodium 1 % topical gel (Voltaren Arthritis Pain) 4 g topical QID #0 grams 10/31/22 [Rx Confirmed 06/30/23] furosemide 20 mg tablet 60 mg (3 x 20 mg) PO BID 30 days #180 tabs 10/31/22 [Rx Confirmed 06/30/23] fluticasone fur. 100 mcg-umeclid 62.5 mcg-vilant 25 mcg inhalat.powder (Trelegy Ellipta) 2 ea inhalation DAILY 12/06/22 [History Confirmed 06/30/23] pramipexole 0.5 mg tablet 0.5 mg PO HS 12/06/22 [History Confirmed 06/30/23] insulin lispro 100 unit/mL subcutaneous pen (Humalog KwikPen (U-100) Insulin) 1 sliding scale dose subcut ACHS 12/29/22 [History Confirmed 06/30/23] ondansetron 4 mg disintegrating tablet 4 mg PO Q6H PRN Nausea 12/29/22 [History Confirmed 06/30/23] acetaminophen 650 mg tablet,extended release (Arthritis Pain Reliever) 650 mg POQ12H PRN pain 03/05/23 [History Confirmed 06/30/23] buspirone 10 mg tablet 10 mg PO BID 03/05/23 [History Confirmed 06/30/23] metoprolol tartrate 25 mg tablet 12.5 mg PO DAILY 03/05/23 [History Confirmed 06/30/23] mexiletine 200 mg capsule 200 mg PO Q8HR 30 days #90 caps 03/07/23 [Rx Confirmed 06/30/23] pregabalin 50 mg capsule (Lyrica) 50 mg PO BID 04/01/23 [History Confirmed 06/30/23] oxycodone-acetaminophen 5 mg-325 mg tablet (Percocet) 1 - 2 tab PO Q6HR PRN pain3 days #15 tabs 04/16/23 [Rx Confirmed 06/30/23] midodrine 5 mg tablet 5 mg PO TID 06/12/23 [History Confirmed 06/30/23] lidocaine 4 % topical patch (Lidocaine Pain Relief) 1 patch topical BID 06/30/23[History Confirmed 06/30/23] loratadine 10 mg tablet (Allerclear) 5 mg PO DAILY 06/30/23 [History Confirmed 06/30/23] lubiprostone 8 mcg capsule (Amitiza) 8 mcg PO BID 06/30/23 [History Confirmed 06/30/23] midodrine 5 mg tablet 5 mg PO DAILY PRN low bp 06/30/23 [History Confirmed 06/30/23] polyethylene glycol 3350 17 gram/dose oral powder (ClearLax) 17 g PO BID 06/30/23 [History Confirmed 06/30/23] tizanidine 4 mg capsule (Zanaflex) 4 mg PO QHS 06/30/23 [History Confirmed 06/30/23] Exam Physical Exam Vital Signs: Temp Pulse Resp BP Pulse Ox O2 Del Method O2 Flow Rate 97.9 F 77 22 122/56 L 97 Nasal Cannula 2 06/30/23 17:13 06/30/23 17:13 06/30/23 17:13 06/30/23 17:13 06/30/23 17:13 06/30/23 17:13 06/30/23 17:13 Narrative: General patient laying in bed in [...] and judgment Skin: no rash or lesions Results - Hospitalist H&P Lab Results Labs: Laboratory Last Values Corrected WBC 9.4 X10E3/uL (3.8-11.6) 06/30/23 13:04 Uncorrected WBC Count 9.4 x10E3/uL (3.8-11.6) 06/30/23 13:04 RBC 4.23 X10E6/uL (3.60-5.00) 06/30/23 13:04 Hgb 12.2 g/dL (11.8-15.4) 06/30/23 13:04 Hct 37.4 % (34.0-46.4) 06/30/23 13:04 MCV 88.3 fl (80-100) 06/30/23 13:04 MCH 28.8 pg (24.7-34.3) 06/30/23 13:04 MCHC 32.6 g/dL (32.0-35.0) 06/30/23 13:04 RDW 18.3 % (11.9-15.3) H 06/30/23 13:04 Plt Count 143 x10E3/uL (150-450) L 06/30/23 13:04 MPV 8.5 fl (6.3-10.7) 06/30/23 13:04 Neut % (Auto) 82.7 % (.) 06/30/23 13:04 Lymph % (Auto) 7.5 % (.) 06/30/23 13:04 Bandera % (Auto) 9.2 % (.) 06/30/23 13:04 Eos % (Auto) 0.3 % (.) 06/30/23 13:04 Baso % (Auto) 0.3 % (.) 06/30/23 13:04 Nucleat RBC Rel Count 0.0 /100 WBC (0-0.5) 06/30/23 13:04 Neut # (Auto) 7.7 x10E3/uL (1.8-7.7) 06/30/23 13:04 Lymph # (Auto) 0.7 x10E3/uL (1.00-4.8) L 06/30/23 13:04 Bandera # (Auto) 0.9 x10E3/uL (0.0-0.8) H 06/30/23 13:04 Eos # (Auto) 0.0 x10E3/uL (0.0-0.45) 06/30/23 13:04 Baso # (Auto) 0.0 x10E3/uL (0.0-0.2) 06/30/23 13:04 Monocyte Dist Width 25.76 % (0.00-20.00) H 06/30/23 13:04 ESR 102 mm/hr (0-29) H 06/30/23 13:04 PT 11.4 Seconds (9.0-12.9) 06/30/23 13:04 INR 1.0 06/30/23 13:04 APTT 33.6 Seconds (25.1-36.5) 06/30/23 13:04 PHA Creatinine Clear 15.71 06/30/23 13:04 Sodium 133 mmol/L (136-145) L 06/30/23 13:04 Potassium 3.4 mmol/L (3.5-5.1) L 06/30/23 13:04 Chloride 90 mmol/L (98-107) L 06/30/23 13:04 Carbon Dioxide 26.5 mmol/L (21.0-31.0) 06/30/23 13:04 Anion Gap 19.9 mEq/L (6.0-15.0) H 06/30/23 13:04 BUN 19 mg/dL (7-25) 06/30/23 13:04 Creatinine 2.63 mg/dL (0.60-1.20) H 06/30/23 13:04 Est GFR (CKD-EPI) 18.296 mL/Min 06/30/23 13:04 Glucose 130 mg/dL (70-100) H 06/30/23 13:04 Calcium 9.4 mg/dL (8.6-10.3) 06/30/23 13:04 Total Creatine Kinase 108 U/L (30-223) 06/30/23 13:04 Troponin I High Sens 43.7 pg/mL (0.0-15.0) H 06/30/23 13:04 C-Reactive Prot, Quant 21.7 mg/dL (0.0-0.5) H 06/30/23 13:04 B-Natriuretic Peptide 794.0 pg/mL (5-100) H 06/30/23 13:04 Free T4 0.91 ng/dL (0.61-1.12) 06/30/23 13:04 TSH 3rd Generation 2.38 uIU/mL (0.45-5.33) 06/30/23 13:04 Assessment & Plan Assessment/Plan (1) Closed odontoid fracture: (2) Fall: (3) Anxiety and depression: (4) ESRD (end stage renal disease): (5) Diabetes mellitus with insulin therapy: (6) Primary hypertension: Plan Observation admission Fall precaution CT brain: No acute intracranial bleeding CTA neck stable carotid plaque and stenosis and occlusion of the right vertebral artery unchanged with extensive postoperative and degenerative changes at the cervical spine and NEW FRACTURE AT THE BASE OF THE ODONTOID IS SEEN. CT lumbar spine OSTEOPENIA, REVERSE S-SHAPED SCOLIOTIC CURVATURE AND DISCOVERTEBRAL DEGENERATIVECHANGES MOST NOTABLE IN THE LUMBAR REGION. NO OBVIOUS ACUTE THORACIC OR LUMBAR COMPRESSION FRACTURES. INCIDENTAL FINDINGS INCLUDING A PERSISTENT RIGHT PLEURAL EFFUSION WITH ADJACENT LOWER LOBE CONSOLIDATIO Trauma team consult Neurosurgery consult Percocet 1 to 2 tablets every 4 hours as needed for pain PT OT evaluation End-stage renal disease Nephrology consult for dialysis Hypertension: Resume Lopressor Hyperlipidemia: Resume Lipitor CAD: Resume aspirin and lipitor Depression anxiety: Resume citalopram Foot ulcer: Healing/no fever leukocytosis/x-ray/ no osteo/wound care, DVT prophylaxis heparin IP vs OBS Justification Based on differential dx, clinical care plan, and risk of adverse events, if untreated, in my clinical judgement this patient requires an acute care setting as: OBSERVATION because of an expectation of an under 2 midnight stay. Estimated length of stay (# of days): 1 Documented By: Tatiana Loya MD 06/30/23 1719 Signed By: <Electronically signed by Tatiana Loya MD> 06/30/23 1801 [facility] Work Phone: 1(911) 247-396104-30-2024 NoteMidodrine given at 7am today 06/10/2023 Midodrine given about 2 hours ago (1320) 06/10/2023[facility]04-30-2024 NoteUT Electrophysiology Consult Note Reason for visit: near syncope, VT s/p dual chamber ICD. 06/10/2023 She has been dealing with lower blood pressures for the past month. She is symptomatic with these. She will feel dizzy/LH, weakness, trouble ambulating, feels disoriented when it is low. Her valsartan was held and she was started on PRN midodrine. 04/01/23 Patient here for 6 week follow [...] NC, syncope. She was recently admitted to [facility] after syncopal episode and hitting her head as a result. Patient was at home clearing table after dinner where she felt sudden onset of dizziness and then just passed out. She had CT scans of the head and cervical spine which were unremarkable. [facility] ER noted multiple runs of nonsustained VT and her EKG at that time showed normal sinus rhythm first-degree AV block and PVCs. She was switched from carvedilol to metoprolol and then began to experience bradycardia; at some point she was started on amiodarone for rhythm control related to VT. She was discharged with 2-week event monitor. per [facility]: 14-day event monitor 12/09/2022 shows sinus rhythm with no VT, no PVCs were noted, it was reported there was an episode of 3-1 AV block with 3.1-second pause which was reported as asymptomatic She was seen by her primary clinical laboratory aide who referred her to EP. She was [...] COPD (chronic obstructive pulmonary disease) ([facility]) 09/23/2021 Diastolic heart failure ([facility]) 09/23/2021 Dyspnea 09/23/2021 Edema 09/23/2021 Essential hypertension 09/23/2021 Hyperlipemia 09/23/2021 Kidney disease 09/23/2021 Orthopnea 09/23/2021 Primary malignant neoplasm ([facility]) 09/23/2021 Sleep apnea Type 1 diabetes ([facility]) 09/23/2021 PSH: Past Surgical History: Procedure Laterality [...] true Transportation Needs: No Transportation Needs (01/29/2023) Transportation Lack of Transportation (Medical): No Lack of Transportation (Non-Medical): No Physical Activity: Inactive (01/29/2023) Exercise Vital Sign Days of Exercise per Week: 0 days Minutes of Exercise per Session: 0 min Stress: Stress Concern Present (01/29/2023) [employer] [place] [employer] - Occupational Stress Questionnaire Feeling of Stress : To some extent Social Connections: Socially Isolated (01/29/2023) Social Connection and Isolation Panel [NHANES] Frequency of Communication with Friends and Family: More than three times a week Frequency of Social Gatherings with Friends and Family: Once a week Attends [employer] Services: Never Active Member of Clubs or Organizations: No Attends Club or Organiz (more content not included)...[facility]02-29-2024 NoteMicrobiology PROCEDURE: Wound Culture [R1] SOURCE: Abscess BODY SITE: Toe COLLECTED DATE/TIME: 04/08/2023 10:45 EST RECEIVED DATE/TIME: 04/08/2023 21:10 EST START DATE/TIME: 04/08/2023 21:10 EST FREE TEXT SOURCE: Right great toe Julius Loyd DPM, DPM, Julius Hull FINAL REPORTS Final Report [] Verified Date/Time: 04/10/2023 10:35 EST 2+ Methicillin-Resistant Staphylococcus aureus MRSA called to Chrissie at Dr. Loyd's office 04/10/2023 10:35:15 by TIAN STAINS Gram Stain Report [] Verified Date/Time: 04/09/2023 11:52 EST Occasional White Blood Cells 1+ Gram Positive Cocci SUSCEPTIBILITY RESULTS LEGEND: S=Susceptible, N/R=Not Reported, Blank=Data not available, or drug not advisable or tested, I=Intermediate, ESBL=Extended spectrum beta-lactamase, R=Resistant, TFG=Thymidine-dependent strain, ALEXANDRA=Beta-lactamase positive, TRINITY=mcg/m;(mg/L), S*=Predicted susceptible interp, R*=Predicted resistant interp MRSA Antibiotic TRINITY Dilutn TRINITY Interp Amoxicillin/ >4/2 R* Clavulanate Ampicillin >8 R* Ampicillin/ <=8/4 R* Sulbactam Azithromycin >4 R Cefazolin >16 R* Ceftaroline 1 S Ciprofloxacin >2 R Clindamycin >2 R Daptomycin <=1 S Erythromycin >4 R Gentamicin <=4 S Levofloxacin >4 R Linezolid <=2 S Oxacillin >2 R Penicillin 8 R* Rifampin <=1 S Tetracycline <=4 S Trimethoprim/ <=0.5/9.5 S Sulfa Vancomycin 1 S Performing Locations R1: This test was performed at: [facility], [address] [place] [address], [address]- , , Qkgley[facility] Bucy[facility] HospitalComment on above:Performed By: #### [id number] ####[facility] [address] [place], [place] [id number] Evaluation + Plan note Diagnostic Tests Pending * Wound Culture 04/08/23 [facility]02-24-2024 Discharge summary Author Gary Almaguer [facility] April 05, 2023 3:04pm Note Date/Time April 05, 2023 3:03pm [facility] [address] [place] [address] Discharge Summary Signed Patient: Cinthya Wilson MR#: [id number] : 1945 Acct:[id number] Age/Sex: 78 / F Adm Date: 4 Loc: Room: [address] [place] [address]: Gary Almaguer MD Copies to: MD Gary Bourgeois II, MD~ Providers Date of Discharge: 04/05/23 Discharging Provider: Gary Almaguer Primary Care Provider: Lily Del Real Consults: 04/01/23 20:53 Consult to Nephrology Routine Comment: Consulting Provider: Geronimo Graham Has Provider Been Notified: Yes Date of [...] pain with tenderness and they went to [facility] ER. She was given muscle relaxant and was told to have muscle spasm and sent home. She did not feel well due to her persistent pain and did not go for her routine hemodialysis. She has been feeling weak earlier had an episode of double vision/blurriness which has resolved while here. In the emergency room chest x- ray [...] followed and patient was accepted to the [facility]. Patient is suitable for discharge at this [...] normal Discharge Plan Discharge Plan Patient Disposition: Long Term Facility Activity: Ambulate as Tolerated Diet: Carb [...] <Electronically signed by Gary Almaguer MD> 04/05/23 8293 [facility] Work Phone: 1(693) 364-840702-24-2024 Progress note Author Geronimo Graham [facility] April 05, 2023 11:56am Note Date/Time April 05, 2023 11:56am [facility] [address] [place] [address] Nephrology Progress Note Signed Patient: Cinthya Wilson MR#: [id number] : 1945 Acct:[id number] Age/Sex: 78 / F Adm Date: 4 Loc: Room: [address] [place] [address] Type: ADM IN Attending Dr: Gary Almaguer MD Copies to: ~ Date of Service: 04/05/2023 Subjective Subjective Narrative: 78-year-old female patient with a past medical history of end-stage renal disease on Friday hemodialysis schedule at [facility], coronary disease status post PCI. COPD, chronic respiratory failure, cardiac arrhythmia status post AICD. Patient presented to the emergency room complaining of right side neck pain and behind right ear pain. Patient missed hemodialysis session Friday because she was not feeling well. Patient presentedto [facility] emergency room for this pain and [...] Tablet.) 81 mg PO DAILY YESSENIA Stop: 04/01/24 08:59 Last Admin: 04/05/23 08:28 Dose: 81 mg Atorvastatin Calcium (Atorvastatin 40 Mg Tablet) 40 mg PO QPM YESSENIA Stop: 03/31/24 20:59 Last Admin: 04/04/23 21:27 Dose: 40 mg Budesonide/Formoterol Fumarate (Budesonide/Formoterol 80-4.5 Mcg 60 Puff/6.9 Gm Hfa.Aer.Ad) 2 puff INHALATION BID YESSENIA Stop: 04/01/24 08:59 Last Admin: 04/05/23 08:40 Dose: 2 puff Buspirone HCl (Buspirone 10 Mg Tablet) 10 mg PO BID YESSENAI Stop: 03/31/24 20:59 Last Admin: 04/05/23 08:28 Dose: 10 mg Calcium Acetate (Calcium Acetate 667 Mg Capsule) 667 mg PO TID.WITH.MEALS YESSENIA Stop: 04/01/24 07:59 Last Admin: 04/05/23 08:28 Dose: 667 mg Citalopram Hydrobromide (Citalopram 40 Mg Tablet) 40 mg PO DAILY YESSENIA Stop: 04/01/24 08:59 Last Admin: 04/05/23 08:28 Dose: 40 mg Cyclobenzaprine HCl (Cyclobenzaprine 5 Mg Tablet) 5 mg PO QHS YESSENIA Stop: 04/03/24 21:59 Last Admin: 04/04/23 21:28 Dose: 5 mg Darbepoetin Theodore (Darbepoetin Theodore In Polysorbat 100 Mcg/Ml Vial) 100 mcg IV- PUSH We@1030 [facility]; Protocol Stop: 04/01/24 10:29 Last Admin: 04/02/23 [...] 5,000 Unit/Ml Vial) 5,000 unit SUBCUT Q12HR [facility] Stop: 03/31/24 21:59 Last Admin: 04/05/23 08:31 [...] 1,000 mls @ 50 mls/hr IV .Q20H [facility] Stop: 04/01/24 00:44 Last Admin: 04/04/23 21:01 Dose: Not Given Sodium Chloride (0.9% Sodium Chloride 1,000 Ml) 1,000 mls @ 0 mls/hr MISCELLANE.Q0M PRN PRN Reason: Dialysis Stop: 04/01/24 09:10 Last Infusion: 04/04/23 11:14 Dose: Infused Insulin Aspart (Insulin Aspart 300 Units/3 Ml Insuln.Pen) 0 units SUBCUT TID.WM.HS [facility]; Protocol Stop: 03/31/24 21:59 Last Admin: 04/05/23 08:31 Dose: Not Given Ipratropium [place] (Ipratropium [place] 0.5 Mg/2.5 Ml Vial.Neb) 0.5 mg INHALATION QID [facility] Stop: 04/01/24 08:59 Last Admin: 04/05/23 08:40 [...] 0.5 Mg Tablet) 0.5 mg PO HS [facility] Stop: 03/31/24 21:59 Last Admin: 04/04/23 21:27 [...] Jossie Díaz M.D.04/04/2023 2:59 PM Dictation Location: [place] [address] Any impression(s) listed above is documentation that was entered by the reading physician into a diagnostic report(s) for Cinthya Mc Steve. I have reviewed the report(s) and am incorporating any findings in the treatment plan of this patient where applicable. A&P - Nephrology Assessment/Plan (1) End-stage renal disease (ESRD): Plan: Patient goes to [facility] on Friday for hemodialysis. Patient missed [...] adjust order as needed Documented By: Geronimo Graham MD 04/05/23 9325 Signed By: <Electronically signed by Geronimo Graham MD> 04/05/23 1652 [facility] Work Phone: 1(355) 660-390502-23-2024 Progress note Author Danny Mcclelland [facility] April 04, 2023 7:01pm Note Date/Time April 04, 2023 6:54pm [facility] [address] [place] [address] Neurology Progress Note Signed Patient: Cinthya Wilson MR#: [id number] : 1945 Acct:[id number] Age/Sex: 78 / F Adm Date: 4 Loc: Room: [address] [place] [address] Type: ADM IN Attending Dr: Gary Almaguer [...] time Documented By: Danny Mcclelland DO 04/04/23 0220 Signed By: <Electronically signed by Danny Mcclelland DO> 04/04/23 6[address] [facility] Work Phone: 1(820) 678-495102-23-2024 Progress note Author Obaydah Daromar [facility] April 04, 2023 4:41pm Note Date/Time April 04, 2023 4:41pm [facility] [address] [place] [address] Hospitalist Progress Note Signed Patient: Cinthya Wilson MR#: [id number] : 1945 Acct:[id number] Age/Sex: 78 / F Adm Date: 4 Loc: 3T Room: [address] [place] [address] Type: ADM IN Attending Dr: Gary Almaguer [...] Water IV 04/01/24 00:44 Not Given .Q20H [facility] Sodium Chloride 1,000 mls @ 0 mls/hr 04/02/23 09:11 04/04/23 11:14 0.9% Sodium Chloride 1,000 Ml MISCELLANE 04/01/24 09:10 Infused .Q0M PRN Infusion Dialysis As Directed Insulin Aspart 0 units 04/01/23 22:00 04/04/23 11:34 Insulin Aspart 300 Units/3 Ml Insuln.Pen SUBCUT 03/31/24 21:59 Not Given TID.WM.[facility] Protocol Ipratropium [place] 0.5 mg 04/02/23 09:00 04/04/23 15:46 Ipratropium [place] 0.5 Mg/2.5 Ml Vial.Neb INHALATION 04/01/24 08:59 0.5 mg QID YESSENIA Administration Lidocaine 1 patch 04/01/23 22:00 04/04/23 14:17 Lidocaine 4% Adh..Patch TOPICAL 03/31/24 21:59 Not Given TID YESSENIA Metoprolol Tartrate [...] <Electronically signed by Gary Almaguer MD> 04/04/23 1647 [facility] Work Phone: 1([phone]) 946-465402-23-2024 Progress note Author [facility] April 04, 2023 11:45am Note Date/Time April 04, 2023 11:45am [facility] [address] [place] [address] Nephrology Progress Note Signed Patient: Cinthya Wilson MR#: [id number] : 1945 Acct:[id number] Age/Sex: 78 / F Adm Date: 4 Loc: Room: [address] [place] [address] Type: ADM IN Attending Dr: Gary Almaguer MD Copies to: ~ Date of Service: 04/04/2023 Subjective Subjective Narrative: 78-year-old female patient with a past medical history of end-stage renal disease on Friday hemodialysis schedule at [facility], coronary disease status post PCI. COPD, chronic respiratory failure, cardiac arrhythmia status post AICD. Patient presented to the emergency room complaining of right side neck pain and behind right ear pain. Patient missed hemodialysis session Friday because she was not feeling well. Patient presentedto [facility] emergency room for this pain and [...] 81 Mg Tablet.) 81 mg PO DAILY [facility] Stop: 04/01/24 08:59 Last Admin: 04/04/23 08:48 Dose: 81 mg Atorvastatin Calcium (Atorvastatin 40 Mg Tablet) 40 mg PO QPM YESSENIA Stop: 03/31/24 20:59 Last Admin: 04/03/23 20:14 Dose: 40 mg Budesonide/Formoterol Fumarate (Budesonide/Formoterol 80-4.5 Mcg 60 Puff/6.9 Gm Hfa.Aer.Ad) 2 puff INHALATION BID [facility] Stop: 04/01/24 08:59 Last Admin: 04/04/23 08:29 Dose: 2 puff Buspirone HCl (Buspirone 10 Mg Tablet) 10 mg PO BID [facility] Stop: 03/31/24 20:59 Last Admin: 04/04/23 08:48 Dose: 10 mg Calcium Acetate (Calcium Acetate 667 Mg Capsule) 667 mg PO TID.WITH.MEALS [facility] Stop: 04/01/24 07:59 Last Admin: 04/04/23 11:34 Dose: Not Given Citalopram Hydrobromide (Citalopram 40 Mg Tablet) 40 mg PO DAILY [facility] Stop: 04/01/24 08:59 Last Admin: 04/04/23 08:48 [...] 20 Mg Tablet) 60 mg PO BID [facility] Stop: 03/31/24 20:59 Last Admin: 04/04/23 08:48 Dose: 60 mg Glucose (Dextrose 40% Gel 15 Gm Tube) 0 gm PO PRN PRN PRN Reason: Hypoglycemia Stop: 03/31/24 20:52 Heparin Sodium (Porcine) (Heparin 5,000 Unit/Ml Vial) 5,000 unit SUBCUT Q12HR [facility] Stop: 03/31/24 21:59 Last Admin: 04/04/23 08:54 [...] 1,000 mls @ 50 mls/hr IV .Q20H [facility] Stop: 04/01/24 00:44 Last Admin: 04/02/23 21:40 Dose: Not Given Sodium Chloride (0.9% Sodium Chloride 1,000 Ml) 1,000 mls @ 0 mls/hr MISCELLANE.Q0M PRN PRN Reason: Dialysis Stop: 04/01/24 09:10 Last Infusion: 04/04/23 11:14 Dose: Infused Insulin Aspart (Insulin Aspart 300 Units/3 Ml Insuln.Pen) 0 units SUBCUT TID.WM.[facility]; Protocol Stop: 03/31/24 21:59 Last Admin: 04/04/23 11:34 Dose: Not Given Ipratropium [place] (Ipratropium [place] 0.5 Mg/2.5 Ml Vial.Neb) 0.5 mg INHALATION QID [facility] Stop: 04/01/24 08:59 Last Admin: 04/04/23 08:29 Dose: 0.5 mg Lidocaine (Lidocaine 4% Adh..Patch) 1 patch TOPICAL TID [facility] Stop: 03/31/24 21:59 Last Admin: 04/04/23 08:48 Dose: 1 patch Methocarbamol (Methocarbamol 500 Mg Tablet) 1,000 mg PO TID [facility] Stop: 04/02/24 15:14 Last Admin: 04/04/23 08:48 Dose: 1,000 mg Metoprolol Tartrate (Metoprolol Tartrate 25 Mg Tablet) 25 mg PO DAILY [facility] Stop: 04/01/24 08:59 Last Admin: 04/04/23 08:48 Dose: 25 mg Mexiletine HCl (Mexiletine 200 Mg Capsule) 200 mg PO Q8HR YESSENIA Stop: 03/31/24 21:59 Last Admin: 04/04/23 06:38 [...] renal disease (ESRD): Plan: Patient goes to [facility] on Friday for hemodialysis. Patient missed [...] adjust order as needed Documented By: Geronimo Graham MD 04/04/23 1144 Signed By: <Electronically signed by Geronimo Graham MD> 04/04/23 2391 [facility] Work Phone: 1(817) 863-774602-22-2024 Consult note Author Maxime Bhatti [facility] April 03, 2023 3:31pm Note Date/Time April 02, 2023 8:41am [facility] [address] [place] [address] Vascular Surgery Consult Note Signed Patient: Cinthya Wilson MR#: [id number] : 1945 Acct:[id number] Age/Sex: 78 / F Adm Date: 4 Loc: Room: [address] [place] [address] Type: ADM IN Attending Dr: Gary Almaguer [...] negative unless noted below or in HPI [facility] Medical History COPD (chronic obstructive pulmonary [...] bilaterally. She moves all extremities equally. Bilateral spotlight operator strength is adequate and equal. Const General: [...] % (Auto) 68.6 Lymph % (Auto) 15.5 Bandera % (Auto) 9.5 Eos % (Auto) 5.5 Baso % (Auto) 0.9 Nucleat RBC Rel Count 0.0 Neut # (Auto) 6.1 Lymph # (Auto) 1.4 Bandera # (Auto) 0.8 Eos # (Auto) 0.5 [...] MPV Neut % (Auto) Lymph % (Auto) [place] % (Auto) Eos % (Auto) Baso % (Auto) Nucleat RBC Rel Count Neut # (Auto) Lymph # (Auto) Band[place] # (Auto) Eos # (Auto) Baso # [...] MPV Neut % (Auto) Lymph % (Auto) [place] % (Auto) Eos % (Auto) Baso % (Auto) Nucleat RBC Rel Count Neut # (Auto) Lymph # (Auto) [place] # (Auto) Eos # (Auto) Baso # [...] MPV Neut % (Auto) Lymph % (Auto) [place] % (Auto) Eos % (Auto) Baso % (Auto) Nucleat RBC Rel Count Neut # (Auto) Lymph # (Auto) Band[place] # (Auto) Eos # (Auto) Baso # [...] % (Auto) 69.6 Lymph % (Auto) 15.2 [place] % (Auto) 9.9 Eos % (Auto) 4.6 Baso % (Auto) 0.7 Nucleat RBC Rel Count 0.0 Neut # (Auto) 4.9 Lymph # (Auto) 1.1 Bandera # (Auto) 0.7 Eos # (Auto) 0.3 [...] there. Documented By: Maxime Bhatti MD 04/02/23 0839 Signed By: <Electronically signed by Maxime Bhatti MD> 04/03/23 1531 <Electronically signed by NELI Walker> 04/02/23 1616 [facility] Work Phone: 1(189) 371-901502-22-2024 Progress note Author Gary Almaguer [facility] April 03, 2023 3:18pm Note Date/Time April 03, 2023 3:11pm [facility] [address] [place] [address] Hospitalist Progress Note Signed Patient: Cinthya Wilson MR#: [id number] : 1945 Acct:[id number] Age/Sex: 78 / F Adm Date: 4 Loc: 3T Room: [address] [place] [address] Type: ADM IN Attending Dr: Gary Almaguer [...] 2 units TID.WM.HS YESSENIA Administration Protocol Ipratropium [place] 0.5 mg 04/02/23 09:00 04/03/23 11:19 Ipratropium [place] 0.5 Mg/2.5 Ml Vial.Neb INHALATION 04/01/24 08:59 [...] 04/02/23 09:00 04/03/23 09:36 Pantoprazole 40 Mg Tablet. PO 04/01/24 08:59 [...] <Electronically signed by Gary Almaguer MD> 04/03/23 1513 [facility] Work Phone: 1(191) 390-223102-22-2024 Progress note Author Danny Mcclelland [facility] April 03, 2023 1:52pm Note Date/Time April 03, 2023 1:52pm [facility] [address] [place] [address] Neurology Progress Note Signed Patient: Cinthya Wilson MR#: [id number] : 1945 Acct:[id number] Age/Sex: 78 / F Adm Date: 4 Loc: Room: [address] [place] [address] Type: ADM IN Attending Dr: Gary Almaguer [...] signed by Danny Mcclelland DO> 04/03/23 1352 [facility] Work Phone: 1(192) 337-818502-22-2024 Progress note Author Geronimo Graham [facility] April 03, 2023 12:41pm Note Date/Time April 03, 2023 12:42Brown [facility] [address] [place] [address] Nephrology Progress Note Signed Patient: Cinthya Wilson MR#: [id number] : 1945 Acct:[id number] Age/Sex: 78 / F Adm Date: 4 Loc: 3T Room: [address] [place] [address] Type: ADM IN Attending Dr: Gary Almaguer MD Copies to: ~ Date of Service: 04/03/2023 Subjective Subjective Narrative: 78-year-old female patient with a past medical history of end-stage renal disease on Friday hemodialysis schedule at [facility], coronary disease status post PCI. COPD, chronic respiratory failure, cardiac arrhythmia status post AICD. Patient presented to the emergency room complaining of right side neck pain and behind right ear pain. Patient missed hemodialysis session Friday because she was not feeling well. Patient presentedto [facility] emergency room for this pain and [...] 81 Mg Tablet.) 81 mg PO DAILY [facility] Stop: 04/01/24 08:59 Last Admin: 04/03/23 09:34 Dose: 81 mg Atorvastatin Calcium (Atorvastatin 40 Mg Tablet) 40 mg PO QPM [facility] Stop: 03/31/24 20:59 Last Admin: 04/02/23 21:38 Dose: 40 mg Budesonide/Formoterol Fumarate (Budesonide/Formoterol 80-4.5 Mcg 60 Puff/6.9 Gm Hfa.Aer.Ad) 2 puff INHALATION BID [facility] Stop: 04/01/24 08:59 Last Admin: 04/03/23 08:52 Dose: 2 puff Buspirone HCl (Buspirone 10 Mg Tablet) 10 mg PO BID [facility] Stop: 03/31/24 20:59 Last Admin: 04/03/23 09:37 Dose: 10 mg Calcium Acetate (Calcium Acetate 667 Mg Capsule) 667 mg PO TID.WITH.MEALS [facility] Stop: 04/01/24 07:59 Last Admin: 04/03/23 09:34 [...] 5,000 Unit/Ml Vial) 5,000 unit SUBCUT Q12HR [facility] Stop: 03/31/24 21:59 Last Admin: 04/03/23 09:36 [...] 1,000 mls @ 50 mls/hr IV .Q20H [facility] Stop: 04/01/24 00:44 Last Admin: 04/02/23 21:40 Dose: Not Given Sodium Chloride (0.9% Sodium Chloride 1,000 Ml) 1,000 mls @ 0 mls/hr MISCELLANE.Q0M PRN PRN Reason: Dialysis Stop: 04/01/24 09:10 Last Admin: 04/02/23 10:35 Dose: 999 mls/hr Insulin Aspart (Insulin Aspart 300 Units/3 Ml Insuln.Pen) 0 units SUBCUT TID.[facility]; Protocol Stop: 03/31/24 21:59 Last Admin: 04/03/23 11:55 Dose: 2 units Ipratropium [place] (Ipratropium [place] 0.5 Mg/2.5 Ml Vial.Neb) 0.5 mg INHALATION QID [facility] Stop: 04/01/24 08:59 Last Admin: 04/03/23 11:19 Dose: 0.5 mg Lidocaine (Lidocaine 4% Adh..Patch) 1 patch TOPICAL TID [facility] Stop: 03/31/24 21:59 Last Admin: 04/03/23 09:37 Dose: 1 patch Metoprolol Tartrate (Metoprolol Tartrate 25 Mg Tablet) 25 mg PO DAILY [facility] Stop: 04/01/24 08:59 Last Admin: 04/03/23 09:35 Dose: 25 mg Mexiletine HCl (Mexiletine 200 Mg Capsule) 200 mg PO Q8HR [facility] Stop: 03/31/24 21:59 Last Admin: 04/03/23 06:11 Dose: 200 mg Pantoprazole Sodium (Pantoprazole 40 Mg Tablet.Dr) 40 mg PO DAILY [facility] Stop: 04/01/24 08:59 Last Admin: 04/03/23 09:36 Dose: 40 mg Pramipexole Dihydrochloride (Pramipexole 0.5 Mg Tablet) 0.5 mg PO [facility] Stop: 03/31/24 21:59 Last Admin: 04/02/23 21:38 [...] David South M.D.04/03/2023 11:27 AM Dictation Location: [place] [address] Any impression(s) listed above is documentation that was entered by the reading physician into a diagnostic report(s) for Cinthya Wilson. I have reviewed the report(s) and am incorporating any findings in the treatment plan of this patient where applicable. A&P - Nephrology Assessment/Plan (1) End-stage renal disease (ESRD): Plan: Patient goes to [facility] on Friday for hemodialysis. Patient missed [...] adjust order as needed Documented By: Geronimo Graham MD 04/03/23 1239 Signed By: <Electronically signed by Geronimo Graham MD> 04/03/23 1241 [facility] Work Phone: 1(299) 482-421302-21-2024 Progress note Author Gary Almaguer [facility] April 02, 2023 4:28pm Note Date/Time April 02, 2023 4:16pm [facility] [address] [place] [address] Hospitalist Progress Note Signed Patient: Cinthya Wilson MR#: [id number] : 1945 Acct:[id number] Age/Sex: 78 / F Adm Date: 4 Loc: Room: [address] [place] [address] Type: ADM IN Attending Dr: Gary Almaguer [...] Ml Insuln.Pen SUBCUT 03/31/24 21:59 Not Given TID.[facility] Protocol Ipratropium [place] 0.5 mg 04/02/23 09:00 04/02/23 15:45 Ipratropium [place] 0.5 Mg/2.5 Ml Vial.Neb INHALATION 04/01/24 08:59 [...] 04/02/23 09:00 04/02/23 15:08 Pantoprazole 40 Mg Tablet.Dr PO 04/01/24 08:59 40 mg DAILY Y[facility] Administration Pramipexole Dihydrochloride 0.5 mg 04/01/23 22:00 04/02/23 00:55 Pramipexole 0.5 Mg Tablet PO 03/31/24 21:59 Not Given [facility] Sodium Chloride 0 ml 04/02/23 09:11 04/02/23 [...] <Electronically signed by Gary Almaguer MD> 04/02/23 1441 [facility] Work Phone: 1(173) 659-105202-21-2024 Consult note Author Danny Mcclelland [facility] April 02, 2023 2:20pm Note Date/Time April 02, 2023 2:20pm [facility] [address] [place] [address] Neurology Consult Note Signed Patient: Cinthya Wilson MR#: [id number] : 1945 Acct:[id number] Age/Sex: 78 / F Adm Date: 4 Loc: 3T Room: [address] [place] [address] Type: ADM IN Attending Dr: Gary Almaguer MD Copies to: DO Lily Robin II, MD Obaydah M Daromar, MD~ HPI Consult Date: 04/02/23 Airplane Pilot: Danny Mcclelland DO [facility] Medical History COPD (chronic obstructive pulmonary [...] Dianna Pedro M.D.04/01/2023 2:28 PM Dictation Location: [facility]-[address] 04/01/23 17:06 IMPRESSION: ATROPHY AND CHRONIC MICROVASCULAR CHANGES. NO DEFINITE ACUTE INTRACRANIAL ABNORMALITY WITHIN LIMITS OF MOTION. 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 THERE IS ALSO MILD TO MODERATE NARROWING AT THE CAROTIDSIPHONS. RIGHT VERTEBRAL ARTERY OCCLUSION AND/OR SEVERE STENOSIS. LEFT V4 PLAQUE WITH MODERATE ASSOCIATED LUMINAL NARROWING. Impression dictated by: Dianna Pedro M.D.04/02/2023 7:35 AM Dictation Location: [place] [address] Assessment/Plan (1) Diplopia: Plan Subjective: Patient is a 78-year-old female with a history of ESRD on hemodialysis, coronary disease status post PCI, chronic respiratory failure on 3L oxygen, COPD, hyperlipidemia, hypertension, CHF, ventricular arrhythmia statuspost AICD who presented with right-sided neck pain. Patient claims that his neck pain started on Friday and was associated with tenderness. The patient reportedly went to the [facility] ER. Patient was reportedly given muscle relaxant due to suspected muscle spasm and subsequently sent home. Patient reportedly had persistent pain on Friday and missed routine hemodialysis. Patient reportedly also had generalized weakness and episodes of double vision/blurriness. Patient presented to [facility] ER 04/01. Reportedly no focal [...] encounter. Documented By: Danny Mcclelland DO 04/02/23 1414 Signed By: <Electronically signed by Danny Mcclelland DO> 04/02/23 1420 [facility] Work Phone: 1(327) 576-303302-21-2024 Consult note Author Geronimo Graham [facility] April 02, 2023 12:34pm Note Date/Time April 02, 2023 12:34pm [facility] [address] [place] [address] Nephrology Consult Note Signed Patient: Cinthya Wilson MR#: [id number] : 1945 Acct:[id number] Age/Sex: 78 / F Adm Date: 4 Loc: Room: [address] [place] [address] Type: ADM IN Attending Dr: Gary Alamguer MD Copies to: MD Lily Allen II, MD Obaydah M Daromar, MD~ Providers Consult Date: 04/02/23 Requesting Provider: Gary Almaguer MD Primary Care Provider: Lily Del Real II, MD HPI Reason for Consult: End-stage renal disease patient History of Present Illness: 78-year-old female patient with a past medical history of end-stage renal disease on Friday hemodialysis schedule at [facility], coronary disease status post PCI. COPD, chronic respiratory failure, cardiac arrhythmia status post AICD. Patient presented to the emergency room complaining of right side neck pain and behind right ear pain. Patient missed hemodialysis session Friday because she was not feeling well. Patient presentedto [facility] emergency room for this pain and [...] negative unless noted below or in HPI [facility] Medical History COPD (chronic obstructive pulmonary [...] Tablet.) 81 mg PO DAILY [facility] Stop: 04/01/24 08:59 Atorvastatin Calcium (Atorvastatin 40 Mg Tablet) 40 mg PO QPM [facility] Stop: 03/31/24 20:59 Last Admin: 04/02/23 00:54 Dose: Not Given Budesonide/Formoterol Fumarate (Budesonide/Formoterol 80-4.5 Mcg 60 Puff/6.9 Gm Hfa.Aer.Ad) 2 puff INHALATION BID [facility] Stop: 04/01/24 08:59 Last Admin: 04/02/23 08:02 Dose: 2 puff Buspirone HCl (Buspirone 10 Mg Tablet) 10 mg PO BID [facility] Stop: 03/31/24 20:59 Last Admin: 04/02/23 00:54 Dose: Not Given Calcium Acetate (Calcium Acetate 667 Mg Capsule) 667 mg PO TID.WITH.MEALS [facility] Stop: 04/01/24 07:59 Last Admin: 04/02/23 08:44 Dose: 667 mg Citalopram Hydrobromide (Citalopram 40 Mg Tablet) 40 mg PO DAILY [facility] Stop: 04/01/24 08:59 Darbepoetin Theodore (Darbepoetin Theodore [...] BID [facility] Stop: 03/31/24 20:59 Last Admin: 04/02/23 00:54 Dose: Not Given Glucose (Dextrose 40% Gel 15 Gm Tube) 0 gm PO PRN PRN PRN Reason: Hypoglycemia Stop: 03/31/24 20:52 Heparin Sodium (Porcine) (Heparin 5,000 Unit/Ml Vial) 5,000 unit SUBCUT Q12HR [facility] Stop: 03/31/24 21:59 Last Admin: 04/02/23 01:17 [...] 1,000 mls @ 50 mls/hr IV .Q20H [facility] Stop: 04/01/24 00:44 Last Admin: 04/02/23 01:17 Dose: 50 mls/hr Sodium Chloride (0.9% Sodium Chloride 1,000 Ml) 1,000 mls @ 0 mls/hr MISCELLANE.Q0M PRN PRN Reason: Dialysis Stop: 04/01/24 09:10 Last Admin: 04/02/23 10:35 Dose: 999 mls/hr Insulin Aspart (Insulin Aspart 300 Units/3 Ml Insuln.Pen) 0 units SUBCUT TID.[facility]; Protocol Stop: 03/31/24 21:59 Last Admin: 04/01/23 23:15 Dose: Not Given Ipratropium [place] (Ipratropium [place] 0.5 Mg/2.5 Ml Vial.Neb) 0.5 mg INHALATION QID [facility] Stop: 04/01/24 08:59 Last Admin: 04/02/23 11:55 Dose: Not Given Lidocaine (Lidocaine 4% Adh..Patch) 1 patch TOPICAL TID [facility] Stop: 03/31/24 21:59 Last Admin: 04/02/23 00:54 Dose: Not Given Metoprolol Tartrate (Metoprolol Tartrate 25 Mg Tablet) 25 mg PO DAILY [facility] Stop: 04/01/24 08:59 Mexiletine HCl (Mexiletine 200 Mg Capsule) 200 mg PO Q8HR [facility] Stop: 03/31/24 21:59 Last Admin: 04/02/23 06:39 Dose: 200 mg Pantoprazole Sodium (Pantoprazole 40 Mg Tablet.Dr) 40 mg PO DAILY [facility] Stop: 04/01/24 08:59 Pramipexole Dihydrochloride (Pramipexole 0.5 Mg Tablet) 0.5 mg PO [facility] Stop: 03/31/24 21:59 Last Admin: 04/02/23 00:55 [...] Dianna Pedro M.D.04/01/2023 2:28 PM Dictation Location: [place] [address] 04/01/23 17:06 IMPRESSION: ATROPHY AND CHRONIC MICROVASCULAR CHANGES. NO DEFINITE ACUTE INTRACRANIAL ABNORMALITY WITHIN LIMITS OF MOTION. Impression dictated by: Dianna Pedro M.D.04/01/2023 6:10 PM Dictation Location: [facility] Head CTA 04/01/23 20:50 IMPRESSION: CAROTID ARTERY DISEASE WITH SEVERE RIGHT AND MODERATE LEFT PROXIMAL INTERNAL CAROTID ARTERY STENOSIS. THERE IS ALSO MILD TO MODERATE NARROWING AT THE CAROTIDSIPHONS. RIGHT VERTEBRAL ARTERY OCCLUSION AND/OR SEVERE STENOSIS. LEFT V4 PLAQUE WITH MODERATE ASSOCIATED LUMINAL NARROWING. Impression dictated by: Dianna Pedro M.D.04/02/2023 7:35 AM Dictation Location: [place] [address] Any impression(s) listed above is documentation that was entered by the reading physician into a diagnostic report(s) for Cinthya Wilson. I have reviewed the report(s) and am incorporating any findings in the treatment plan of this patient where applicable. A&P - Nephrology Assessment/Plan (1) End-stage renal disease (ESRD): Plan: Patient goes to [facility] on Friday for hemodialysis. Patient missed [...] adjust order as needed Documented By: Geronimo Graham MD 04/02/23 1227 Signed By: <Electronically signed by Geronimo Graham MD> 04/02/23 1234 [facility] Work Phone: 1(636) 434-659102-21-2024 History and physical note Author Teresa Pagan [facility] April 01, 2023 10:21pm Note Date/Time April 01, 2023 8:40pm [facility] [address] [place] [address] Hospitalist H&P Signed with Addenda Patient: Cinthya Wilson MR#: [id number] : 1945 Acct:[id number] Age/Sex: 78 / F Adm Date: 4 Loc: 3T Room: [address] [place] [address] Type: ADM INOo Attending Dr: Teresa Pagan [...] pain with tenderness and they went to [facility] ER. She was given muscle relaxantand [...] negative unless noted below or in HPI [facility] Medical History (Updated 04/01/23 @ 20:47 [...] % (Auto) 15.5 % (.) 04/01/23 17:00 Bandera % (Auto) 9.5 % (.) 04/01/23 17:00 Eos % (Auto) 5.5 % (.) 04/01/23 17:00 Baso % (Auto) 0.9 % (.) 04/01/23 17:00 Nucleat RBC Rel Count 0.0 /100 WBC (0-0.5) 04/01/23 17:00 Neut # (Auto) 6.1 x10E3/uL (1.8-7.7) 04/01/23 17:00 Lymph # (Auto) 1.4 x10E3/uL (1.00-4.8) 04/01/23 17:00 Bandera # (Auto) 0.8 x10E3/uL (0.0-0.8) 04/01/23 17:00 [...] <Electronically signed by Teresa Pagan MD> 04/01/232049 [facility] Work Phone: 1(963) 276-408802-20-2024 History and physical note Author Teresa Pagan [facility] April 01, 2023 10:21pm Note Date/Time April 01, 2023 8:40pm [facility] [address] [place] [address] Hospitalist H&P Signed with Aquiles Patient: Cinthya Wilson MR#: [id number] : 1945 Acct:[id number] Age/Sex: 78 / F Adm Date: 4 Loc: Room: [address] [place] [address] Type: ADM INOo Attending Dr: Teresa Pagan [...] pain with tenderness and they went to [facility] ER. She was given muscle relaxantand [...] negative unless noted below or in HPI [facility] Medical History (Updated 04/01/23 @ 20:47 [...] % (Auto) 15.5 % (.) 04/01/23 17:00 Bandera % (Auto) 9.5 % (.) 04/01/23 17:00 Eos % (Auto) 5.5 % (.) 04/01/23 17:00 Baso % (Auto) 0.9 % (.) 04/01/23 17:00 Nucleat RBC Rel Count 0.0 /100 WBC (0-0.5) 04/01/23 17:00 Neut # (Auto) 6.1 x10E3/uL (1.8-7.7) 04/01/23 17:00 Lymph # (Auto) 1.4 x10E3/uL (1.00-4.8) 04/01/23 17:00 Bandera # (Auto) 0.8 x10E3/uL (0.0-0.8) 04/01/23 17:00 [...] <Electronically signed by Teresa Pagan MD> 04/01/232049 [facility] Work Phone: 1(656) 203-582302-20-2024 NoteOkay here in the [place] Electrophysiology Consult Note Reason for visit: near [...] NC, syncope. She was recently admitted to [facility] after syncopal episode and hitting her head as a result. Patient was at home clearing table after dinner where she felt sudden onset of dizziness and then just passed out. She had CT scans of the head and cervical spine which were unremarkable. [facility] ER noted multiple runs of nonsustained VT and her EKG at that time showed normal sinus rhythm first-degree AV block and PVCs. She was switched from carvedilol to metoprolol and then began to experience bradycardia; at some point she was started on amiodarone for rhythm control related to VT. She was discharged with 2-week event monitor. per [facility]: 14-day event monitor 12/09/2022 shows sinus rhythm with no VT, no PVCs were noted, it was reported there was an episode of 3-1 AV block with 3.1-second pause which was reported as asymptomatic She was seen by her primary clinical laboratory aide who referred her to EP. She was [...] COPD (chronic obstructive pulmonary disease) ([facility]) 09/23/2021 Diastolic heart failure ([facility]) 09/23/2021 Dyspnea 09/23/2021 Edema 09/23/2021 Essential hypertension 09/23/2021 Hyperlipemia 09/23/2021 Kidney disease 09/23/2021 Orthopnea 09/23/2021 Primary malignant neoplasm ([facility]) 09/23/2021 Sleep apnea Type 1 diabetes ([facility]) 09/23/2021 PSH: Past Surgical History: Procedure Laterality [...] 0 min Stress: Stress Concern Present (01/29/2023) [employer] [place] [employer] - Occupational Stress Questionnaire Feeling of Stress : To some extent Social Connections: Socially Isolated (01/29/2023) Social Connection and Isolation Panel [NHANES] Frequency of Communication with Friends and Family: More than three times a week Frequency of Social Gatherings with Friends and Family: Once a week Attends [employer]: Never Active Member of Clubs or [...] Position: Sitting) Pulse 7 (more content not included)...[facility] 02-25-2023 NoteUT Electrophysiology Consult Note Reason for visit: near syncope, VT s/p dual chamber ICD. Date of Telehealth Visit: 02/25/2023 The patient was notified that using 3rd libertarian telecommunication application (e.g., [employer]) is not HIPPA compliant and may carry some privacy risks. Yes The visit was conducted [id number] with the use of audio and video [...] NC, syncope. She was recently admitted to [facility] after syncopal episode and hitting her head as a result. Patient was at home clearing table after dinner where she felt sudden onset of dizziness and then just passed out. She had CT scans of the head and cervical spine which were unremarkable. [facility] ER noted multiple runs of nonsustained VT and her EKG at that time showed normal sinus rhythm first-degree AV block and PVCs. She was switched from carvedilol to metoprolol and then began to experience bradycardia; at some point she was started on amiodarone for rhythm control related to VT. She was discharged with 2-week event monitor. per [facility]: 14-day event monitor 12/09/2022 shows sinus rhythm with no VT, no PVCs were noted, it was reported there was an episode of 3-1 AV block with 3.1-second pause which was reported as asymptomatic She was seen by her primary clinical laboratory aide who referred her to EP. She was [...] COPD (chronic obstructive pulmonary disease) ([facility]) 09/23/2021 Diastolic heart failure ([facility]) 09/23/2021 Dyspnea 09/23/2021 Edema 09/23/2021 Essential hypertension 09/23/2021 Hyperlipemia 09/23/2021 Kidney disease 09/23/2021 Orthopnea 09/23/2021 Primary malignant neoplasm (CMS/HCC) 09/23/2021 Sleep apnea Type 1 diabetes (CMS/HCC) 09/23/2021 PSH: Past Surgical History: Procedure Laterality [...] 0 min Stress: Stress Concern Present (01/29/2023) [employer] [place] [employer] - Occupational Stress Questionnaire Feeling of Stress : To some extent Social Connections: Socially Isolated (01/29/2023) Social Connection and Isolation Panel [NHANES] Frequency of Communication with Friends and Family: More than three times (more content not included)...[facility]12-23-2023 NoteSent [facility]12-22-[address] Shore, patient okay to safely discharge without seeing wound care as long as prior wounds remain unchanged. If wounds have worsened in status or have changed, cannot discharge patient without wound RN assessing.[facility]12-22-2023 NoteDischarge orders placed for patient. She is active with [facility]. A return referral was placed via [facility] to include clinical summary and AVS. No other OTM needs identified.[facility]12-22-2023 Note Hospital Medicine Discharge Summary Final Discharge Diagnosis: Nonsustained V. tach Hypomagnesemia Hypokalemia Right pleural effusion History of syncope Diastolic CHF Aortic stenosis Diabetes CAD, status post PCI ESRD, on hemodialysis MWF COPD, on home oxygen 3 L Admission Diagnosis: End stage renal disease ([facility]) [N18.6] Hypokalemia [E87.6] Hypomagnesemia [E83.42] Ventricular tachycardia ([facility]) [I47.20] Nonsustained ventricular tachycardia ([facility]) [I47.29] Type 2 diabetes mellitus without complication, with long-term current use of insulin ([facility]) [E11.9, Z79.4] Hospital course: Cinthya Wilson is an 77 y.o. 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 tach on the monitor. Patient only complains of increased shortness of breath but no chest pain. She has lightheadedness. No recent falls. No nausea or vomiting. Patient states that she had the monitor in order to be evaluated for the need of pacemaker. Upon review of her records, patient was hospitalized at [facility] for syncope and at that time she [...] Provider Department Center 02/13/2023 2:30 PM [facility] CLINIC DEVICE CHECK HVC CARD [place] [facility] 02/25/2023 1:40 PM Nadeem Sanchez MD [facility] Your medication list START taking these [...] HYDROcodone-acetaminophen 7.5-325 mg tablet Commonly known as: [place] midodrine 5 mg tablet Commonly known as: [...] 200-62.5-25 mcg blister with device Generic drug: ngjxpvzrawb-knocrkweh-lgsjeszu valsartan 160 mg tablet Commonly known as: Diovan STOP taking these medications amiodarone 400 mg tablet Commonly known as: Pacerone carvedilol 3.125 mg tablet Commonly known as: Coreg Where to Get Your Medications These medications were sent to [id number] - - [address] [id number] metoprolol succinate XL 25 mg 24 hr tablet Cintyha is allergic to benazepril, gabapentin, lisinopril, and meloxicam. Disposition: Home-Health Care [facility] Discharge Condition: Stable Code Status: Full Code Diagnostic Results Hematology: Results from last 7 days Lab Units 01/31/23 0543 01/30/23 0507 01/29/232042 WBC AUTO 10*3/uL 9.44 8.30 7.70 HEMOGLOBIN g/dL 10.1* 9.5* 9.2* HEMATOCRIT % 34.0* 32.5* 31.2* MCV fL 92.4 93.1 91.2 PLATELETS AUTO 10*3/uL 339 343 324 INR -- -- 1.08 Chemistry: Results from last 7 days Lab Units 01/31/23 0543 01/30/23 0507 01/29/232042 SODIUM mmol/L 130* 131* 133* POTASSIUM mmol/L 4.1 3.5 3.2* CHLORIDE mmol/L 93* 94* 92* CO2 mmol/L 27 28 29 BUN mg/dL 39* 29* 23 CREATININ (more content not included)...[facility] 01-31-2023 NoteOccupational Therapy Cancel Note Reason: Patient off the floor at HD at this time. OT will continue to follow and will re-attempt as able. Time in: 945 Check no charge Lemuel FLETCHER, OTR/L, [facility]12-22-2023 Note Attestation signed by Saad Wade MD [...] recent syncope for what patient was on [employer] for the last few weeks presented to ER by recommendation of her clinical laboratory aide because of runs of nonsustained V. tach on the monitor. Patient only complains of increased shortness of breath but no chest pain. She has lightheadedness. No recent falls. No nausea or vomiting. Patient states that she had the monitor in order to be evaluated for the need of pacemaker. Upon review of her records, [facility] [place] for syncope and at that time she [...] Dose Status amiodarone (Pacerone) 400 mg tablet [id number] Take 400 mg by mouth in the morning a (more content not included)...[facility] 01-31-2023 Note Attestation signed by Cheli Lutz MD at 01/31/2023 3:35 PM I personally saw and examined the patient on the same date of service as resident/fellow Dr aRmirez. I discussed the findings and therapeutic plan [...] stress testing Cheli Lutz MD, MPH, FACC, [facility], [facility] Interventional Cardiology Pager Email: [email or web address] Cardiology Progress Note Subjective Subjective: Cinthya Wilson is a 77 y.o. female with past medical history of CAD s/p PCI to LAD 2015, HFpEF 50-55%, aortic valve stenosis, ESRD HD MWF, COPD 3L NC, HTN, orthostatic hypotension who presents from cardiology clinic due to runs of NSVT seen on monitor. Of note, she was hospitalized at [facility] after syncopal episode last month. Note NSVT and bradycardia at her visit there. She was discontinued on her home beta madhu and event monitor at that point, started on amiodarone. After discharge, she saw her primary clinical laboratory aide, who recommended EP evaluation. Suggested to discontinue amiodarone given concurrent lung disease and kidney failure. On 01/29, event monitor picked up VT for greater than 3 minute stretch. Patient was completely asymptomatic at that time, reported to [facility] for evaluation. 01/31: Patient underwent dual [...] -- -- 63 17 100 % -- 01/30/233 105/51 -- -- 68 17 100 % -- 01/30/23 2200 (!) 115/48 -- -- 64 18 100 % -- 01/30/23 2100 132/59 36.6 ???C (97.9 ???F) 65 20 100 % -- 01/30/232016 122/59 -- -- 64 17 100 % -- 01/30/232002 (!) 94/49 36.8 ???C (98.2 ???F) Temporal 64 12 100 % -- 01/30/23 193 (!) 141/49 37 ???C (98.6 ???F) Temporal [...] Value Ventricular Rate 62 Atrial Rate 62 RI Interval 258 QRS DURATION 126 QT Interval 490 QTC CALCULATION(BAZETT) 497 P [place] 266 R-[place] -21 T Wave [place] -31 Impression Ectopic atrial rhythm Non-specific intra-ventricular [...] Bubble Study Result Date: 01/30/2023 1 1 [facility] Heart Station [address] [place] [address] [phone] (fax) Echocardiogram-[facility] Name: CINTHYA WILSON Study Date: 01/30/2023 09:26 AM B/P: 119 mmHg/52 mmHg HR: 56 bpm Date of : 1945 Location: [facility] Height: 64 in. Age: 77 year(s) Patient Room: 3107 Weight: 131 lb. Gender: Female Patient Status: InPt BSA: 1.63 m2 Indication: Nonsustained Ventricular Tachycardia Patient supine due to condition Examination: Echocardiogram (Complete), Mary (more content not included)...[facility]12-21-2023 NoteDUAL CHAMBER ICD IMPLANT & DFT TESTING PROCEDURE NOTE DATE OF PROCEDURE: 01/30/23 PERFORMING PHYSICIAN: Dr. Nadeem Sanchez REPRODUCTION PRODUCTION MANAGER: Dr. Wei Banuelos CONSENT: Patient LOCATION: EP [...] using modified seldinger technique using a 5 British micro-puncture needle on two occasions and 0.35 [...] for the device above the muscle. 6 British Safesheaths were placed over the wire. An active fixation Biotronik ICD lead was then delivered through the 8F sheath to the right ventricle. After confirmation of lead position on orthogonal views (SANCHES and CHINESE) to confirm septal position, the screw was [...] lead position on orthogonal views (SANCHES and CHINESE), the screw was activated. Good sensing parameters, [...] x 3 weeks Nadeem Sanchez MD [facility]iologyUnDay[facility]12-21-2023 Note Patient: Cinthya Wilson Procedure Information Date/Time: 01/30/23 1700 Procedure: Coronary angiography Location: [facility] SENIOR MAINTENANCE TECHNICIAN 3 / [facility] (Cath) Providers: Moo Rivero MD [...] products. Plan discussed with attending. Additional Equipment RequestsUnDayton Oste[facility]12-21-2023 Note Clinical Nutrition Assessment Name: Cinthya Wilson Date: 1945 Date of Visit: 01/30/23 Reason for assessment: high risk wounds Information obtained from: patient, medical record, and nursing Medical History Chief Complaint Patient presents with Shortness of Breath Pt presents to ED with c/o SOB and 2+ minutes if vtach per the [facility] MATERIAL LOADER at cardio clinic. Pt is being evaluated for defibrillator. 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 Past Medical History: Diagnosis Date CAD (coronary artery disease) 09/23/2021 COPD (chronic obstructive pulmonary disease) ([facility]) 09/23/2021 Diastolic heart failure ([facility]) 09/23/2021 Dyspnea 09/23/2021 Edema 09/23/2021 Essential hypertension 09/23/2021 Hyperlipemia 09/23/2021 Kidney disease 09/23/2021 Orthopnea 09/23/2021 Primary malignant neoplasm ([facility]/HCC) 09/23/2021 Sleep apnea Type 1 diabetes ([facility]) 09/23/2021 Past Surgical History: Procedure Laterality Date [...] hours citalopram (CELEXA) 40 mg, oral, Daily hgwbajtgnnq-xmnbuikhd-twzihmsw (Trelegy Ellipta) 200-62.5-25 mcg blister with device inhalation furosemide (Lasix) 40 mg tablet 1.5 tablets, oral, 2 times daily gabapentin (NEURONTIN) 100 mg, oral, 2 times daily HumaLOG KwikPen Insulin 100 unit/mL injection No dose, route, or frequency recorded. HYDROcodone-acetaminophen (Houston) 7.5-325 mg tablet 1 tablet, oral, As [...] based on: actual body weight Calorie needs: 7867-6351 kcals/day based on Equation: 25-30 kcal/kg Protein needs: 71-90 g/day based on 1.2-1.5 g/kg -ESRD on HD Fluid needs: 1490 ml/day b (more content not included)...[facility]12-21-2023 NoteHospital Medicine Daily Progress Note - 01/30/2023 12:14 PM; Room: [address] [place] [address]- Admission: 01/29/2023 7:29 PM; Length of stay: 1 days THE HOSPITALIST TEAM PREFERS TO USE LookTracker CHAT FOR COMMUNICATION 7AM-7PM. IF I DO NOT RESPOND WITHIN 15 MINUTES, PLEASE PAGE ME/CALL THROUGH THE REDEYE GUNNER. FROM 7PM-7AM, PLEASE PAGE [phone](COVR) Code Status: Full Code Barriers to Discharge: [...] , FREET4 , CORTISOL , FEV1 , DYB3YOB , DLCO , RVSP , HDL , LDL No results found for: [id number] , IRON , TIBC , C3 , C4 , DIVYA , CANCA , ASO , PSA , CEA , CA125 , CA199 , AFP , CA153 Imaging Complete Echo (TTE) w/wo Imaging Agent, Strain, 3D, Bubble Study 1 1 [facility] Heart Station [address] [place] [address] [phone] (fax) Echocardiogram-[facility] Name: CINTHYA WILSON Study Date: 01/30/2023 09:26 AM B/P: 119 mmHg/52 mmHg HR: 56 bpm Date of : 1945 Location: [facility] Height: 64 in. Age: 77 year(s) Patient Room: 3107 Weight: 131 lb. Gender: Female Patient Status: InPt BSA: 1.63 m2 Indication: Nonsustained Ventricular Tachycardia Patient supine due to condition Examination: Echocardiogram (Complete), Lumas (more content not included)...[facility]12-21-2023 Note01/30/23 0808 Admission Assessment Questions Verify insurance with patient Yes Do you understand medical disease or what brought you into the hospital? Yes Who is your current PCP? Lily Del Real MD Can I schedule a follow up [...] Yes Does the patient have a case investigator assigned to them through their insurance? No Living Arrangement (Current/Prior to Hospitalization) Private residence;Other (Comment) (lives w/daughter. 2 story house w/bed and bath on 1st floor. 4 entry stairs with railings - currently w/[facility]) Does the patient have history of HHC or SNF? Yes (C - [facility] currently. Past SNF was [facility]) Assistive Device Walker;Oxygen;Grab bars;Wheelchair (shower chair) Patient's [...] able to send link and activate MyChart? YesUnDay[facility]12-20-2023 NoteHospital Medicine History and Physical 01/29/2023 11:01 PM THE HOSPITALIST TEAM PREFERS TO USE LookTracker CHAT FOR COMMUNICATION 7AM-7PM. IF I DO NOT RESPOND WITHIN 15 MINUTES, PLEASE PAGE ME/CALL THROUGH THE [facility]EYE G[facility]NER. FROM 7PM-7AM, PLEASE PAGE [phone](COVR) Chief Complaint Chief Complaint Patient presents with Shortness of Breath Pt presents to ED with c/o SOB and 2+ minutes if vtach per the [facility] MATERIAL LOADER at cardio clinic. Pt is being evaluated for defibrillator. 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 History of Present Illness Cinthya Wilson is an 77 y.o. 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 tach on the monitor. Patient only complains of increased shortness of breath but no chest pain. She has lightheadedness. No recent falls. No nausea or vomiting. Patient states that she had the monitor in order to be evaluated for the need of pacemaker. Upon review of her records, patient was hospitalized at [facility] for syncope and at that time she [...] systolic and diastolic heart failure ([facility]) 12/03/2021 CKD (chronic kidney disease) 12/03/2021 Nonrheumatic aortic valve stenosis 12/03/2021 Pleural effusion, not elsewhere classified 11/19/2021 Arteriovenous fistula, acquired ([facility]) 11/12/2021 Atrioventricular block, first degree 11/12/2021 Basal cell carcinoma of skin, unspecified 11/12/2021 Diverticulitis of intestine, part unspecified, without perforation or abscess without bleeding 11/12/2021 Major depressive disorder, recurrent, unspecified ([facility]) 11/12/2021 Muscle spasm of back 11/12/2021 LVH (left ventricular hypertrophy) 11/12/2021 Other specified noninfective gastroenteritis and colitis 11/12/2021 Unspecified lack of coordination 11/12/2021 Acute and chronic respiratory failure with hypoxia ([facility]) 11/09/2021 Kidney disease 09/23/2021 COPD (chronic obstructive pulmonary disease) ([facility]) 09/23/2021 CAD (coronary artery disease) 09/23/2021 Dyspnea 09/23/2021 Edema 09/23/2021 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 N Transportation Needs In the [...] relatives? Once How often do you attend druze or zoroastrian services? Never Do you belong to any clubs or organizations such as druze groups, unions, fraternal or athletic groups, or [...] occasion? Never 01/29/232213 Referral Data Referral Source care worker Referral Reason Psychosocial assessment Patient Information Primary Caregiver Self Activities of Daily Living Assistive Device Walker;Oxygen Living Arrangement (Current/Prior to Hospitalization) Private residence (Lives at home with daughter) Ambulation Minimum assistance (Uses walker) Dressing Independent Feeding Independent Behavior Oriented Communication Can write;Talks;Understands speaking;Understands Iraqi;Reads Income Information Income Source Unemployed (Retired) Discharge Planning Support Systems Children Type of Residence/Post Acute Needs Private residence;[facility] Will patient need Precert for [...] that she receives C PT/OT 2x/week through [facility]. Patient endorsed the use of a [...] to be connected wi (more content not included)...[facility] 01-29-2023 NotePatient event monitor showing VT >3 minutes, seems to be induced by PVC Recommended to patient and daughter to report Er urgently for evaluation Patient is asymptomatic so ok to report to [facility] If symptomatic [facility] NotePatient here for follow up 2 week event monitor placed at [facility] upon discharge 12/09/2022 for VT. She was admitted again to [facility] last week and amiodarone was stopped. She [...] light-headedness. All other systems reviewed and are negative.[facility] 01-06-2023 NoteUT Electrophysiology Consult Note Reason for visit: near syncope, VT/PVC? HPI: Cinthya Wilson is a 77 y.o. year old with past medical history of Orthostatic hypotension, aortic valve stenosis, CAD s/p PCI, hypertension, ckd on HD M/W/F, hld, CHF, COPD on 3L NC, syncope. She was recently admitted to [facility] after syncopal episode and hitting her head as a result. Patient was at home clearing table after dinner where she felt sudden onset of dizziness and then just passed out. She had CT scans of the head and cervical spine which were unremarkable. [facility] ER noted multiple runs of nonsustained VT and her EKG at that time showed normal sinus rhythm first-degree AV block and PVCs. She was switched from carvedilol to metoprolol and then began to experience bradycardia; at some point she was started on amiodarone for rhythm control related to VT. She was discharged with 2-week event monitor. per [facility]: 14-day event monitor 12/09/2022 shows sinus rhythm with no VT, no PVCs were noted, it was reported there was an episode of 3-1 AV block with 3.1-second pause which was reported as asymptomatic She was seen last week by her primary clinical laboratory aide who referred her to EP. She was [...] COPD (chronic obstructive pulmonary disease) ([facility]) 09/23/2021 Diastolic heart failure ([facility]) 09/23/2021 Dyspnea 09/23/2021 Edema 09/23/2021 Essential hypertension 09/23/2021 Hyperlipemia 09/23/2021 Kidney disease 09/23/2021 Orthopnea 09/23/2021 Primary malignant neoplasm ([facility]) 09/23/2021 Sleep apnea Type 1 diabetes ([facility]) 09/23/2021 PSH: Past Surgical History: Procedure Laterality [...] 40 mg by mouth in the morning. xbsifisqawv-sexwupsdp-pfgtydwf (Trelegy Ellipta) 200-62.5-25 mcg blister with device Inhale. furosemide (Lasix) 40 mg tablet Take 1.5 tablets by mouth in the morning and at bedtime. gabapentin (Neurontin) 100 mg capsule Take 100 mg by mouth twice a day. HumaLOG KwikPen Insulin 100 unit/mL injection HYDROcodone-acetaminophen ([place]) 7.5-325 mg tablet Take 1 tablet by [...] daily as directed. karma (more content not included)...[facility]11-23-2023 Discharge summary Author Tatiana Loya [facility] January 02, 2023 10:45am Note Date/Time January 02, 2023 10:45am [facility] [address] [place], [place] [id number] Discharge Summary Signed Patient: Cinthya Wilson MR#: [id number] : 1945 Acct:[id number] Age/Sex: 77 / F Adm Date: 3 Loc: Room: [address] [place] [address]: Tatiana Loya MD Copies to: MD Lily Duran II, MD~ Providers Date of Discharge: 01/02/23 Discharging Provider: Tatiana Loya Primary Care Provider: Lily Del Real Consults: 12/30/22 02:49 Consult to Nephrology Routine [...] chronic use of hydrocodone product such as [place] 10/325 up to Percocet 5/325 enough for [...] % (Auto) 80.8, Lymph % (Auto) 9.7, Bandera % (Auto) 9.4, Eos % (Auto) 0.0, Baso % (Auto) 0.1, Nucleat RBC Rel Count 0.0, Neut # (Auto) 8.5 H, Lymph # (Auto) 1.0, Bandera # (Auto) 1.0 H, Eos # (Auto) [...] Lutz cardiology [Other] (follow-up with your primary clinical laboratory aide in 2-3 weeks) Documented By: Tatiana Loya MD 01/02/231042 Signed By: <Electronically signed by Tatiana Loya MD> 01/02/235 [facility] Work Phone: 1(998) 814-122711-23-2023 Progress note Author Narinder [facility] January 02, 2023 10:44am Note Date/Time January 02, 2023 10:40am [facility] [address] [place] [address] Nephrology Progress Note Signed Patient: Cinthya Wilson MR#: [id number] : 1945 Acct:[id number] Age/Sex: 77 / F Adm Date: 3 Loc: Room: 6S8534-3 Type: ADM IN Attending Dr: Tatiana Loya MD Copies to: ~ Date of Service: 01/02/2023 Subjective Subjective Narrative: Ms. 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 Patient currently gets dialysis at [facility] on MWF schedule. Patient had [...] 40 Mg Tablet) 40 mg PO QPM [facility] Stop: 12/30/23 20:59 Last Admin: 01/01/23 22:21 Dose: 40 mg Bisacodyl (Bisacodyl 5 Mg Tablet.Dr) 5 mg PO BID PRN PRN Reason: Constipation Stop: 12/30/23 03:22 Calcium Acetate (Calcium Acetate 667 Mg Capsule) 667 mg PO TID.WITH.MEALS [facility] Stop: 12/30/23 07:59 Last Admin: 01/02/23 08:12 [...] 100 Mg Capsule) 100 mg PO BID [facility] Stop: 12/30/23 08:59 Last Admin: 01/02/23 08:13 Dose: 100 mg Ferric Sodium Gluconate Complex (Sodium Ferric Gluconat/Sucrose 62.5 Mg/5 Ml Vial) 125 mg IV-PUSH Mo@0900 [facility] Stop: 12/30/23 08:59 Last Admin: 12/30/22 10:03 Dose: 125 mg Furosemide (Furosemide 20 Mg Tablet) 60 mg PO BID@0800,1700 [facility] Stop: 12/30/23 08:59 Last Admin: 01/02/23 08:12 [...] Units/3 Ml Insuln.Pen) 0 units SUBCUT TID.WM.HS [facility]; Protocol Stop: 12/30/23 07:59 Last Admin: 01/02/23 08:14 Dose: 3 units Midodrine (Midodrine 5 Mg Tablet) 5 mg PO TID.7A.12P.5P PRN PRN Reason: Hypotension Stop: 12/30/23 03:21 Multivitamins (Multivitamin 1 Tab Tablet) 1 tab PO DAILY [facility] Stop: 12/30/23 08:59 Last Admin: 01/02/23 08:13 Dose: 1 tab Nystatin (Nystatin Susp 500,000 Unit/5 Ml Udc) 500,000 unit PO QID YESSENIA Stop: 12/31/23 13:59 Last Admin: 01/02/23 08:13 Dose: 500,000 unit Oxycodone/Acetaminophen (Oxycodone/Acetaminophen 5-325 Mg Tablet) 1 tab PO [id number] PRN Reason: Pain Last Admin: 01/01/23 14:19 [...] 20 Mg Tablet) 40 mg PO DAILY [facility] Stop: 12/30/23 13:29 Last Admin: 01/02/23 08:12 Dose: 40 mg Saliva Substitute (Saliva Stimulant Agents Comb.3 44.3 Ml [employer]) 0 ml MUCOUS MEM PRN PRN PRN [...] 10 Ml Syringe) 0 ml IV-PUSH QSHIFT [facility] Stop: 12/30/23 05:59 Last Admin: 01/02/23 08:14 [...] was stopped. I did check with her clinical laboratory aide and no plan to be started since [...] signed by MD Narinder Toussaint> 01/02/23 1044 [facility] Work Phone: 1(825) 344-755711-22-2023 Progress note Author Narinder Toussaint [facility] January 01, 2023 1:18pm Note Date/Time January 01, 2023 1:18pm [facility] [address] [place] [address] Nephrology Progress Note Signed Patient: Cinthya Wilson MR#: [id number] : 1945 Acct:[id number] Age/Sex: 77 / F Adm Date: 3 Loc: Room: [address] [place] [address] Type: ADM IN Attending Dr: Tatiana Loya MD Copies to: ~ Date of Service: 01/01/2023 Subjective Subjective Narrative: Ms. 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 Patient currently gets dialysis at [facility] on MWF schedule. Patient had [...] 100 Mg Capsule) 100 mg PO BID [facility] Stop: 12/30/23 08:59 Last Admin: 01/01/23 08:26 Dose: 100 mg Ferric Sodium Gluconate Complex (Sodium Ferric Gluconat/Sucrose 62.5 Mg/5 Ml Vial) 125 mg IV-PUSH Mo@0900 [facility] Stop: 12/30/23 08:59 Last Admin: 12/30/22 10:03 Dose: 125 mg Furosemide (Furosemide 20 Mg Tablet) 60 mg PO BID@0800,1700 [facility] Stop: 12/30/23 08:59 Last Admin: 01/01/23 08:26 [...] Units/3 Ml Insuln.Pen) 0 units SUBCUT TID.WM.HS [facility]; Protocol Stop: 12/30/23 07:59 Last Admin: 01/01/23 [...] (Oxycodone/Acetaminophen 5-325 Mg Tablet) 1 tab PO [id number] PRN Reason: Pain Last Admin: 01/01/23 08:25 [...] Substitute (Saliva Stimulant Agents Comb.3 44.3 Ml [employer]) 0 ml MUCOUS MEM PRN PRN PRN [...] <Electronically signed by MD Narinder Toussaint> 01/01/231317 [facility] Work Phone: 1(514) 537-536011-22-2023 Progress note Author Donal Farrar [facility] January 01, 2023 11:33am Note Date/Time January 01, 2023 11:28am [facility] [address] [place] [address] Cardiology Progress Note Signed Patient: Cinthya Wilson MR#: [id number] : 1945 Acct:[id number] Age/Sex: 77 / F Adm Date: 3 Loc: Room: [address] [place] [address] Type: ADM IN Attending Dr: Tatiana Loya MD Copies to: ~ Date of Service: 01/01/2023 Subjective Principal diagnosis: NSVT, sinus bradycardia on negative chronotropic therapy Interval history: Ms. Wilson is a 77 year old female with PMH significant for CAD status post PCI x1 about 10 years ago in [place], ESRD on HD, hypertension, hyperlipidemia, CHF, COPD [...] MPV Neut % (Auto) Lymph % (Auto) Bandera % (Auto) Eos % (Auto) Baso % (Auto) Nucleat RBC Rel Count Neut # (Auto) Lymph # (Auto) Bandera # (Auto) Eos # (Auto) Baso # [...] % (Auto) 87.5 Lymph % (Auto) 6.5 Bandera % (Auto) 5.9 Eos % (Auto) 0.0 Baso % (Auto) 0.1 Nucleat RBC Rel Count 0.0 Neut # (Auto) 8.8 H Lymph # (Auto) 0.7 L Bandera # (Auto) 0.6 Eos # (Auto) 0.0 [...] 0.9 Imaging and cardiology Echo: Additional comments: [facility] Main [place] [address] [place] [address] Echocardiogram Signed Patient: Cinthya Wilson : 1945 [...] FS: 24.3 % Ao root area: 6.2 tk8FTCu ap4: 8.9 cm EDV(Teich): EDV(MOD-sp4): 149.3 ml [...] PCI x1 about 10 years ago in [place], ESRD on HD, hypertension, hyperlipidemia, CHF, COPD [...] Friday as well as with her primary clinical laboratory aide for PPM planning. - Avoid AVN blockers - Continue telemetry monitoring. -No new recommendations from a cardiac standpoint. Will follow. Time spent with patient Time Spent With Patient (min): 20 Documented By: Donal Farrar MD 01/01/231122 Signed By: <Electronically signed by Donla Farrar MD> 01/01/23 1133 [facility] Work Phone: 1(968) 531-943511-22-2023 Progress note Author Tatiana Loya [facility] January 01, 2023 10:00am Note Date/Time January 01, 2023 10:00am [facility] [address] [place] [address] Hospitalist Progress Note Signed Patient: Cinthya Wilson MR#: [id number] : 1945 Acct:[id number] Age/Sex: 77 / F Adm Date: 3 Loc: Room: [address] [place] [address] Type: ADM IN Attending Dr: Tatiana Loya [...] 02:59 Saliva Stimulant Agents Comb.3 44.3 Ml [employer] MUCOUS MEM 12/30/23 02:58 PRN PRN Dry [...] chronic use of hydrocodone product such as [place] 10/325 up to Percocet 5/325 enough for [...] signed by Tatiana Loya MD> 01/01/23 1000 [facility] Work Phone: 1(654) 882-551611-21-2023 Progress note Author Edie Mcihel [facility] December 31, 2022 5:16pm Note Date/Time December 31, 2022 5:16pm [facility] [address] [place] [address] Cardiology Progress Note Signed Patient: Cinthya Wilson MR#: [id number] : 1945 Acct:[id number] Age/Sex: 77 / F Adm Date: 3 Loc: Room: [address] [place] [address] Type: ADM IN Attending Dr: Tatiana Loya MD Copies to: ~ Date of Service: 12/31/2022 Subjective Interval history: Ms. Wilson is a 77 year old female with PMH significant for CAD status post PCI x1 about 10 years ago in [place], ESRD on HD, hypertension, hyperlipidemia, CHF, COPD [...] % (Auto) 91.5 Lymph % (Auto) 4.3 Bandera % (Auto) 4.1 Eos % (Auto) 0.0 Baso % (Auto) 0.1 Nucleat RBC Rel Count 0.1 Neut # (Auto) 6.7 Lymph # (Auto) 0.3 L Bandera # (Auto) 0.3 Eos # (Auto) 0.0 [...] MPV Neut % (Auto) Lymph % (Auto) Bandera % (Auto) Eos % (Auto) Baso % (Auto) Nucleat RBC Rel Count Neut # (Auto) Lymph # (Auto) Bandera # (Auto) Eos # (Auto) Baso # [...] MPV Neut % (Auto) Lymph % (Auto) Bandera % (Auto) Eos % (Auto) Baso % (Auto) Nucleat RBC Rel Count Neut # (Auto) Lymph # (Auto) Bandera # (Auto) Eos # (Auto) Baso # [...] PCI x1 about 10 years ago in [place], ESRD on HD, hypertension, hyperlipidemia, CHF, COPD [...] Friday as well as with her primary clinical laboratory aide for PPM planning. -Spoke to daughter today, she will drop off event monitor at [facility] diagnostics[facility] - Avoid AVN blockers - Continue telemetry monitoring. - Will follow. Documented By: Edie Michel MD 12/31/221710 Signed By: <Electronically signed by Edie Michel MD> 12/31/221715 [facility] Work Phone: 1(130) 934-480611-21-2023 Progress note Author Narinder Toussaint [facility] December 31, 2022 12:23pm Note Date/Time December 31, 2022 12:18pm [facility] [address] [place] [address] Nephrology Progress Note Signed Patient: Cinthya Wilson MR#: [id number] : 1945 Acct:[id number] Age/Sex: 77 / F Adm Date: 3 Loc: Room: 9D7339-6 Type: ADM IN Attending Dr: Tatiana Loya MD Copies to: ~ Date of Service: 12/31/2022 Subjective Subjective Narrative: Ms. 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 Patient currently gets dialysis at [facility] on MWF schedule. Patient had [...] 60 Mcg/Ml Vial) 80 mcg IV- PUSHWE [facility] Stop: 01/01/24 08:28 Dextrose (Dextrose 50% In Water 25 Gm/50 Ml Syringe) 0 gm IV-PUSH PRN PRN PRN Reason: Hypoglycemia Stop: 12/30/23 03:22 Diclofenac Sodium (Diclofenac Sodium 1% Gel 100 Gm Tube) 4 gm TOPICAL QID YESSENIA Stop: 12/30/23 08:59 Last Admin: 12/31/22 08:44 Dose: Not Given Docusate Sodium (Docusate 100 Mg Capsule) 100 mg PO BID [facility] Stop: 12/30/23 08:59 Last Admin: 12/31/22 08:37 Dose: 100 mg Ferric Sodium Gluconate Complex (Sodium Ferric Gluconat/Sucrose 62.5 Mg/5 Ml Vial) 125 mg IV-PUSH Mo@0900 YESSENIA Stop: 12/30/23 08:59 Last Admin: 12/30/22 10:03 Dose: 125 mg Furosemide (Furosemide 20 Mg Tablet) 60 mg PO BID@0800,1700 YESSENIA Stop: 12/30/23 08:59 Last Admin: 12/31/22 [...] Units/3 Ml Insuln.Pen) 0 units SUBCUT TID.WM.[facility]; Protocol Stop: 12/30/23 07:59 Last Admin: 12/31/22 11:55 Dose: 3 units Midodrine (Midodrine 5 Mg Tablet) 5 mg PO TID.7A.12P.5P PRN PRN Reason: Hypotension Stop: 12/30/23 03:21 Multivitamins (Multivitamin 1 Tab Tablet) 1 tab PO DAILY [facility] Stop: 12/30/23 08:59 Last Admin: 12/31/22 08:37 Dose: 1 tab Nystatin (Nystatin Susp 500,000 Unit/5 Ml Udc) 500,000 unit PO QID [facility] Stop: 12/31/23 13:59 Oxycodone/Acetaminophen (Oxycodone/Acetaminophen 5-325 Mg Tablet) 1 tab PO [id number] PRN Reason: Pain Last Admin: 12/30/22 16:50 Dose: 1 tab Pantoprazole Sodium (Pantoprazole 40 Mg Tablet.Dr) 40 mg PO DAILY [facility] Stop: 12/30/23 08:59 Last Admin: 12/31/22 08:37 Dose: 40 mg Polyethylene Glycol (Polyethylene Glycol 3350 17 Gm Powd.Pack) 17 gm PO BID YESSENIA Stop: 12/31/23 08:59 Last Admin: 12/31/22 08:37 Dose: Not Given Pramipexole Dihydrochloride (Pramipexole 0.5 Mg Tablet) 0.5 mg PO QHS [facility] Stop: 12/30/23 21:59 Last Admin: 12/30/22 22:13 Dose: 0.5 mg Prednisone (Prednisone 20 Mg Tablet) 40 mg PO DAILY YESSENIA Stop: 12/30/23 13:29 Last Admin: 12/31/22 08:37 Dose: 40 mg Saliva Substitute (Saliva Stimulant Agents Comb.3 44.3 Ml [employer]) 0 ml MUCOUS MEM PRN PRN PRN [...] signed by MD Narinder Toussaint> 12/31/22 1223 [facility] Work Phone: 1([phone] 182-430311-21-2023 Progress note Author Tatiana Loya [facility] December 31, 2022 11:33am Note Date/Time December 31, 2022 11:33am [facility] [address] [place] [address] Hospitalist Progress Note Signed Patient: Cinthya Wilson MR#: [id number] : 1945 Acct:[id number] Age/Sex: 77 / F Adm Date: 3 Loc: Room: [address] [place] [address] Type: ADM IN Attending Dr: Tatiana Loya [...] Tube TOPICAL 12/30/23 08:59 Not Given QID [facility] Docusate Sodium 100 mg 12/30/22 09:00 12/31/22 [...] 02:59 Saliva Stimulant Agents Comb.3 44.3 Ml [employer] MUCOUS MEM 12/30/23 02:58 PRN PRN Dry [...] chronic use of hydrocodone product such as [place] 10/325 up to Percocet 5/325 enough for [...] signed by Tatiana Loya MD> 12/31/22 1133 [facility] Work Phone: 1([phone] 927-931611-20-2023 Consult note Author Edie Michel [facility] December 30, 2022 8:49pm Note Date/Time December 30, 2022 8:37pm [facility] [address] [place] [address] Cardiology Consult Note Signed Patient: Cinthya Wilson MR#: [id number] : 1945 Acct:[id number] Age/Sex: 77 / F Adm Date: 3 Loc: Room: [address] [place] [address] Type: ADM IN Attending Dr: Tatiana Loya MD Copies to: MD Lily Duran II, MD Edie Michel MD~ Cardiology HPI History of Present Illness Consult Date: 12/30/22 Reason for Consult: Bradycardia and history of VT HPI: Ms. Wilson is a 77 year old female with PMH significant for CAD status post PCI x1 about 10 years ago in [place], ESRD on HD, hypertension, hyperlipidemia, CHF, COPD [...] negative unless noted below or in HPI [facility] Medical History Anemia Anxiety Anxiety and [...] 12/29/22] pen needle, diabetic 32 gauge x /32 (BD Ultra-Fine Lexis Pen Needle) #100 ea [...] Lymph # (Auto) 1.2 1.1 (1.00-4.8) x10E3/uL Bandera # (Auto) 1.3 H 1.2 H (0.0-0.8) [...] @ As Directed MISCELLANE .Q0M PRN Rx#: [id number] Oral 360 / 360 Output: Urine 0 [...] PCI x1 about 10 years ago in [place], ESRD on HD, hypertension, hyperlipidemia, CHF, COPD [...] <Electronically signed by Edie Michel MD> 12/30/222048 [facility] Work Phone: 1(616) 977-196011-20-2023 Consult note Author Narinder Toussaint [facility] December 30, 2022 12:46pm Note Date/Time December 30, 2022 12:46pm [facility] [address] [place] [address] Nephrology Consult Note Signed Patient: Cinthya Wilson MR#: [id number] : 1945 Acct:[id number] Age/Sex: 77 / F Adm Date: 3 Loc: Room: 1D8496-0 Type: ADM IN Attending Dr: Tatiana Loya MD Copies to: MD Lily Duran II, MD Essam B Elashi, MD~ Providers Consult Date: 12/30/22 Requesting Provider: Tatiana Loya MD Primary Care Provider: Lily Del Real II, MD [facility] Reason for Consult: Management of ESRD and dialysis during hospital stay History of Present Illness: Ms. 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 Patient currently gets dialysis at [facility] on MWF schedule. Patient had [...] and no additional complaints, except as documented [facility] Medical History Anemia Anxiety Anxiety and [...] 40 Mg Tablet) 40 mg PO QPM [facility] Stop: 12/30/23 20:59 Bisacodyl (Bisacodyl 5 Mg [...] BID@0800,1700 YESSENIA Stop: 12/30/23 08:59 Last Admin: 12/30/22 [...] Units/3 Ml Insuln.Pen) 0 units SUBCUT TID.WM.[facility]; Protocol Stop: 12/30/23 07:59 Last Admin: 12/30/22 11:35 Dose: 2 units Midodrine (Midodrine 5 Mg Tablet) 5 mg PO TID.7A.12P.5P PRN PRN Reason: Hypotension Stop: 12/30/23 03:21 Multivitamins (Multivitamin 1 Tab Tablet) 1 tab PO DAILY [facility] Stop: 12/30/23 08:59 Last Admin: 12/30/22 08:20 Dose: 1 tab Oxycodone/Acetaminophen (Oxycodone/Acetaminophen 5-325 Mg Tablet) 1 tab PO [id number] PRN Reason: Pain Pantoprazole Sodium (Pantoprazole 40 Mg Tablet.Dr) 40 mg PO DAILY [facility] Stop: 12/30/23 08:59 Last Admin: 12/30/22 08:20 Dose: 40 mg Pramipexole Dihydrochloride (Pramipexole 0.5 Mg Tablet) 0.5 mg PO QHS [facility] Stop: 12/30/23 21:59 Saliva Substitute (Saliva Stimulant Agents Comb.3 44.3 Ml [employer]) 0 ml MUCOUS MEM PRN PRN PRN Reason: Dry Mouth Stop: 12/30/23 02:58 Sennosides (Sennosides 8.6 Mg Tablet) 2 tab PO QHS [facility] Stop: 12/30/23 21:59 Sodium Chloride (Sodium Chloride 0.9 % 10 Ml Syringe) 0 ml IV-PUSH PRN PRN PRN Reason: Flush Stop: 12/29/23 22:02 Last Admin: 12/30/22 10:03 Dose: 10 ml Sodium Chloride (Sodium Chloride 0.9 % 10 Ml Syringe) 0 ml IV-PUSH QSHIFT [facility] Stop: 12/30/23 05:59 Last Admin: 12/30/22 06:29 Dose: 10 ml Sodium Chloride (Sodium Chloride 0.9 % 10 Ml Syringe) 0 ml IV-PUSH PRN PRN PRN Reason: Flush Stop: 12/30/23 08:28 Vitamin D (Cholecalciferol 25 Mcg (1,000 Units) Tablet) 25 mcg PO DAILY [facility] Stop: 12/30/23 08:59 Last Admin: 12/30/22 08:20 [...] Matamoros Jr., D.O.12/30/2022 9:27 AM Dictation [facility]en [facility] 12/30/22 02:49 IMPRESSION: MODERATE STOOL BURDEN IS SEEN INVOLVING THE LEFT COLON WITH GASEOUS DISTENTION OF PRESUMED RIGHT-SIDED COLONIC LOOPS. FINDINGS MAY RELATE TO CONSTIPATION. IF UNDERLYING OBSTRUCTION IS OF CLINICAL CONCERN, FURTHER EVALUATION WITH CT IS RECOMMENDED. Impression dictated by: Quintin Matamoros Jr., D.O.12/30/2022 9:28 AM Dictation Location: Inside--12 Liver Ultrasound 12/30/22 03:00 IMPRESSION: NO ACUTE PROCESS. . Impression dictated by: Quintin Matamoros Jr., D.O.12/30/2022 10:31 AM Dictation Location: [place] [address] Any impression(s) listed above is documentation that [...] signed by MD Narinder Toussaint> 12/30/22 1246 [facility] Work Phone: [phone] 201-106611-20-2023 Progress note Author Tatiana Loya [facility] December 30, 2022 11:46am Note Date/Time December 30, 2022 11:46am [facility] [address] [place] [address] Hospitalist Progress Note Signed Patient: Cinthya Wilson MR#: [id number] : 1945 Acct:[id number] Age/Sex: 77 / F Adm Date: 3 Loc: Room: [address] [place] [address] Type: ADM IN Attending Dr: Tatiana Loya [...] Insuln.Pen SUBCUT 12/30/23 07:59 Not Given TID.WM.[facility] Protocol Midodrine 5 mg 12/30/22 03:22 Midodrine [...] 02:59 Saliva Stimulant Agents Comb.3 44.3 Ml [employer] MUCOUS MEM 12/30/23 02:58 PRN PRN Dry [...] chronic use of hydrocodone product such as [place] 10/325 up to Percocet 5/325 enough for [...] <Electronically signed by Tatiana Loya MD> 12/30/22 9580 [facility] Work Phone: [phone] 204-121711-20-2023 History and physical note Author Carlton Mtz [facility] December 30, 2022 3:22am Note Date/Time December 30, 2022 3:06am [facility] [address] [place] [address] Hospitalist H&P Signed Patient: Cinthya Wilson MR#: [id number] : 1945 Acct:[id number] Age/Sex: 77 / F Adm Date: 3 Loc: Room: [address] [place] [address] Type: ADM IN Attending Dr: Carlton Mtz [...] chronic use of hydrocodone product such as [place] 10/325 up to Percocet 5/325 enough for [...] except as mentioned elsewhere in the documentation. [facility] Medical History Anemia Anxiety Anxiety and [...] 12/29/22] pen needle, diabetic 32 gauge x 32 (BD Ultra-Fine Lexis Pen Needle) #100 ea [...] % (Auto) 12.9 % (.) 12/29/22 22:20 Bandera % (Auto) 13.9 % (.) 12/29/22 22:20 Eos % (Auto) 1.0 % (.) 12/29/22 22:20 Baso % (Auto) 0.3 % (.) 12/29/22 22:20 Nucleat RBC Rel Count 0.0 /100 WBC (0-0.5) 12/29/22 22:20 Neut # (Auto) 6.9 x10E3/uL (1.8-7.7) 12/29/22 22:20 Lymph # (Auto) 1.2 x10E3/uL (1.00-4.8) 12/29/22 22:20 Bandera # (Auto) 1.3 x10E3/uL (0.0-0.8) H 12/29/22 [...] well as RSV I will check a RMI nasal PCR for more viral pathogens. I [...] By: <Electronically signed by Carlton Mtz DO> 12/30/222 [facility] Work Phone: 1(851) 296-856811-16-2023 [facility] Chief Complaint: [...] weeks ago and she was transferred from [facility] to [facility] in [place] because her nephrology group is there. HPI: [...] COPD (chronic obstructive pulmonary disease) ([facility]) (09/23/2021), Diastolic heart failure ([facility]) (09/23/2021), Dyspnea (09/23/2021), Edema (09/23/2021), Essential hypertension (09/23/2021), Hyperlipemia (09/23/2021), Kidney disease (09/23/2021), Orthopnea (09/23/2021), Primary malignant neoplasm ([facility]) (09/23/2021), Sleep apnea, and Type 1 diabetes ([facility]) (09/23/2021). Surgical History She has a past [...] mouth in the morning., Disp: , Rfl: xfdqplivfjg-bsuutdvcj-capceald (Trelegy Ellipta) 200-62.5-25 mcg blister with device, Inhale., Disp: , Rfl: furosemide (Lasix) 40 mg tablet, Take 1.5 tablets by mouth in the morning and at bedtime., Disp: , Rfl: HumaLOG KwikPen Insulin 100 unit/mL injection, , Disp: , Rfl: HYDROcodone-acetaminophen ([place]) 7.5-325 mg tablet, Take 1 tablet by [...] rales, rhonchi, or wheezi (more content not included)...[facility] 12-16-2022 Progress note Author Edie Michel [facility] December 16, 2022 4:32pm Note Date/Time December 16, 2022 4 :23pm [facility] [address] [place] [address] Cardiology Progress Note Signed Patient: Cinthya Wilson MR#: [id number] : 1945 Acct:[id number] Age/Sex: 77 / F Adm Date: 3 Loc: 4 Room: [address] [place] [address] Type: ADM IN Attending Dr: Annette Tenorio [...] Code(s): I25.10 - Atherosclerotic heart disease of cheesh-na coronary artery without angina pectoris Status: Acute Plan Continue same. Hold off beta-blockers. I do not believe they are beneficial inthis particular situation. Amiodarone has significantly stabilized her rhythm and her net cardiac output is improved as a result. Continue Amiodarone 400mg BID for 14 days followed by 200mg daily thereafter. Continue event monitor for total of 14 days Follow up with primary clinical laboratory aide as scheduled. Documented By: Edie Michel MD 12/16/22 4918 Signed By: <Electronically signed by Edie Michel MD> 12/16/22 0314 [facility] Work Phone: [phone]) 485-837911-06-2023 Progress note Author Geronimo Graham [facility] December 16, 2022 2:08pm Note Date/Time December 16, 2022 2 :08pm [facility] [address] [place], [place] [address] Nephrology Progress Note Signed Patient: Cinthya Wilson MR#: [id number] : 1945 Acct:[id number] Age/Sex: 77 / F Adm Date: 3 Loc: Room: [address] [place] [address] Type: ADM IN Attending Dr: Annette Tenorio MD Copies to: ~ Date of Service: 12/16/2022 Subjective Subjective Narrative: Ms. 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 Patient currently gets dialysis at [facility] on MWF schedule. Patient had recent admission on December 07 for syncopal episode and she was found to have episodes of nonsustained V. tach with prolonged QT interval. She was evaluated by cardiology and carvedilol was switched to metoprolol and she was set to follow-up with cardiology as outpatient. She did go to ER at [facility] for shortness of breath and generalized weakness. Temperature was 99.9 and she was found to be bradycardic 35 to 40 bpmwith sinus bradycardia rhythm with occasional bigeminal rhythm. Atropine was given with persistent arrhythmia with bigeminy and subsequently patient was started on amiodarone drip and transferred to [facility]. Interval history: Patient was seen and examined [...] 50 Gm Tube) 2 gm TOPICAL BID [facility] Stop: 12/16/23 01:44 Last Admin: 12/16/22 13:42 Dose: 2 gm Furosemide (Furosemide 20 Mg Tablet) 60 mg PO BID.WITH.MEALS [facility] Stop: 12/14/23 07:59 Last Admin: 12/16/22 13:42 Dose: 60 mg Glucose (Dextrose 40% Gel 15 Gm Tube) 0 gm PO PRN PRN PRN Reason: Hypoglycemia Stop: 12/13/23 23:58 Heparin Sodium (Porcine) (Heparin 5,000 Unit/Ml Vial) 5,000 unit SUBCUT Q8HR [facility] Stop: 12/13/23 21:59 Last Admin: 12/16/22 13:42 [...] Units/3 Ml Insuln.Pen) 0 units SUBCUT TID.WM.[facility]; Protocol Stop: 12/14/23 07:59 Last Admin: 12/16/22 13:42 Dose: Not Given Ipratropium [place] (Ipratropium [place] 0.5 Mg/2.5 Ml Vial.Neb) 0.5 mg INHALATION QID.RESP [facility] Stop: 12/14/23 07:59 Last Admin: 12/16/22 12:16 Dose: Not Given Oxycodone/Acetaminophen (Oxycodone/Acetaminophen 5-325 Mg Tablet) 1 tab PO [id number] PRN Reason: Pain Last Admin: 12/16/22 12:18 Dose: 1 tab Pantoprazole Sodium (Pantoprazole 40 Mg Tablet.Dr) 40 mg PO DAILY YESSENIA Stop: 12/14/23 [...] and dialysis prescriptions accordingly. Documented By: Geronimo Graham MD 12/16/22 1408 Signed By: <Electronically signed by Geronimo Graham MD> 12/16/22 1402 [facility] Work Phone: [phone] 900-907311-06-2023 Hospital Discharge instructionsAmbulatory Orders* Initiate Home Health Time Frame: 12/16/22, Location: Determined By Patient Additional Instructions I may not have addressed or treated all of your medical illnesses or the abnormal blood work or imaging studies during this hospitalization. Please ask your primary care provider to obtain [facility] records entirely to follow up on all of the abnormal physical, laboratory, and imaging findings that I have not addressed. Please return back to the emergency room or seek medical attention if your symptoms worsen or return. Discharging you from [facility] does not mean that your medical care [...] cover area of blisters to left also [facility] Work Phone: [phone] Discharge summary Author Annette Tenorio [facility] December 17, 2022 7:16am Note Date/Time December 16, 2022 9 :22am [facility] [address] [place] [address] Discharge Summary Signed Patient: Cinthya Wilson MR#: [id number] : 1945 Acct:[id number] Age/Sex: 77 / F Adm Date: 3 Loc: Room: [address] [place] [address]: Annette Tenorio MD Copies to: MD Annette Bourgeois II, MD~ Providers Date of Discharge: 12/16/22 Discharging Provider: Annette Tenorio Primary Care Provider: Lily Del Real Consults: 12/13/22 20:55 Consult to Cardiology Routine [...] ask her primary care doctor to obtain [facility] record entirely to address abnormalities seen on [...] Plan Discharge Plan Patient Disposition: Home Health [facility] Activity: No Activity Restriction Diet: Diabetic and Renal Additional Instructions: I may not have addressed or treated all of your medical illnesses or the abnormal blood work or imaging studies during this hospitalization. Please ask your primary care provider to obtain [facility] records entirely to follow up on all of the abnormal physical, laboratory, and imaging findings that I have not addressed. Please return back to the emergency room or seek medical attention if your symptoms worsen or return. Discharging you from [facility] does not mean that your medical care [...] (Previously scheduled appointment with cardiology. ) Lily Del Real II, MD [Primary Care Provider] - 12/26/22 10:45 am (You have been scheduled for a follow up appointment for the following date and time, please call to reschedule if needed.) Documented By: Annette Tenorio MD 12/16/22920 Signed By: <Electronically signed by Annette Tenorio MD> 12/17/22 0716 [facility] Work Phone: 1(384) 905-492011-05-2023 Progress note Author Eirca Armenta [facility] December 15, 2022 1:23pm Note Date/Time December 15, 2022 1 :23pm [facility] [address] [place] [address] Hospitalist Progress Note Signed Patient: Cinthya Wilson MR#: [id number] : 1945 Acct:[id number] Age/Sex: 77 / F Adm Date: 3 Loc: Room: [address] [place] [address] Type: ADM IN Attending Dr: Erica Armenta [...] 1 units TID.WM.HS YESSENIA Administration Protocol Ipratropium [place] 0.5 mg 12/14/22 08:00 12/15/22 12:13 Ipratropium [place] 0.5 Mg/2.5 Ml Vial.Neb INHALATION 12/14/23 07:59 [...] ISS coverage Documented By: Erica Armenta MD 12/15/22 1321 Signed By: <Electronically signed by Erica Armenta MD> 12/15/22 1323 [facility] Work Phone: [phone]) 527-773311-05-2023 Progress note Author Narinder Toussaint [facility] December 15, 2022 12:01pm Note Date/Time December 15, 2022 1 1:58am [facility] [address] [place] [address] Nephrology Progress Note Signed Patient: Cinthya Wilson MR#: [id number] : 1945 Acct:[id number] Age/Sex: 77 / F Adm Date: 3 Loc: Room: [address] [place] [address] Type: ADM IN Attending Dr: Erica Armenta MD Copies to: ~ Date of Service: 12/15/2022 Subjective Subjective Narrative: Ms. 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 Patient currently gets dialysis at [facility] unit on MWF schedule. Patient had recent admission on December 07 for syncopal episode and she was found to have episodes of nonsustained V. tach with prolonged QT interval. She was evaluated by cardiology and carvedilol was switched to metoprolol and she was set to follow-up with cardiology as outpatient. She did go to ER at [facility] for shortness of breath and generalized weakness. Temperature was 99.9 and she was found to be bradycardic 35 to 40 bpmwith sinus bradycardia rhythm with occasional bigeminal rhythm. Atropine was given with persistent arrhythmia with bigeminy and subsequently patient was started on amiodarone drip and transferred to [facility]. Interval history: Patient was started on IV amiodarone since admission and switch to oral amiodarone with improvement of bradycardia and no evidence of ventricular tachycardia so far. Heart rate ranged between 55 to 60/min with stable blood pressure. Patient had hemodialysis just before admission and she currently receives dialysis on MWF schedule at [facility]. Next hemodialysis will be tomorrow if she still in-house. 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 clinical laboratory aide recommended additional 24- hour monitoring of rhythm [...] 200 Mg Tablet) 400 mg PO BID [facility] Stop: 12/14/23 10:09 Last Admin: 12/15/22 08:38 Dose: 400 mg Aspirin (Aspirin 81 Mg Tablet.) 81 mg PO DAILY [facility] Stop: 12/14/23 08:59 Last Admin: 12/15/22 08:38 [...] 667 Mg Capsule) 667 mg PO TID.WITH.MEALS [facility] Stop: 12/14/23 07:59 Last Admin: 12/15/22 08:38 Dose: 667 mg Dextrose (Dextrose 50% In Water 25 Gm/50 Ml Syringe) 0 gm IV-PUSH PRN PRN PRN Reason: Hypoglycemia Stop: 12/13/23 23:58 Furosemide (Furosemide 20 Mg Tablet) 60 mg PO BID.WITH.MEALS [facility] Stop: 12/14/23 07:59 Last Admin: 12/15/22 08:38 Dose: 60 mg Glucose (Dextrose 40% Gel 15 Gm Tube) 0 gm PO PRN PRN PRN Reason: Hypoglycemia Stop: 12/13/23 23:58 Heparin Sodium (Porcine) (Heparin 5,000 Unit/Ml Vial) 5,000 unit SUBCUT Q8HR [facility] Stop: 12/13/23 21:59 Last Admin: 12/15/22 05:25 Dose: Not Given Insulin Aspart (Insulin Aspart 300 Units/3 Ml Insuln.Pen) 0 units SUBCUT TID.WM.HS [facility]; Protocol Stop: 12/14/23 07:59 Last Admin: 12/15/22 08:38 Dose: 1 units Ipratropium [place] (Ipratropium [place] 0.5 Mg/2.5 Ml Vial.Neb) 0.5 mg INHALATION QID.RESP [facility] Stop: 12/14/23 07:59 Last Admin: 12/15/22 08:05 Dose: 0.5 mg Midodrine (Midodrine 5 Mg Tablet) 5 mg PO TID.7A.12P.5P PRN PRN Reason: Hypotension Stop: 12/13/23 22:48 Oxycodone/Acetaminophen (Oxycodone/Acetaminophen 5-325 Mg Tablet) 1 tab PO [id number] PRN Reason: Pain Last Admin: 12/15/22 04:29 Dose: 1 tab Pantoprazole Sodium (Pantoprazole 40 Mg Tablet.Dr) 40 mg PO DAILY YESSENIA Stop: 12/14/23 [...] signed by MD Narinder Toussaint> 12/15/22 1201 [facility] Work Phone: [phone] Progress note Author Armando German [facility] December 15, 2022 10:53am Note Date/Time December 15, 2022 1 0:53am [facility] [address] [place] [address] Cardiology Progress Note Signed Patient: Cinthya Wilson MR#: [id number] : 1945 Acct:[id number] Age/Sex: 77 / F Adm Date: 3 Loc: Room: [address] [place] [address] Type: ADM IN Attending Dr: Erica Armenta [...] MPV Neut % (Auto) Lymph % (Auto) Bandera % (Auto) Eos % (Auto) Baso % (Auto) Nucleat RBC Rel Count Neut # (Auto) Lymph # (Auto) Bandera # (Auto) Eos # (Auto) Baso # [...] % (Auto) 79.3 Lymph % (Auto) 10.4 Bandera % (Auto) 8.5 Eos % (Auto) 1.5 Baso % (Auto) 0.3 Nucleat RBC Rel Count 0.0 Neut # (Auto) 8.5 H Lymph # (Auto) 1.1 Bandera # (Auto) 0.9 H Eos # (Auto) [...] Code(s): I25.10 - Atherosclerotic heart disease of cheesh-na coronary artery without angina pectoris Status: Acute [...] <Electronically signed by MD Armando German> 12/15/22 105 [facility] Work Phone: [phone]) 469-815311-05-2023 Progress note Author Jeannie Nayak [facility] December 15, 2022 10:01am Note Date/Time December 15, 2022 1 0:01am [facility] [address] [place] [id number] Progress Note Signed Patient: Cinthya Wilson MR#: [id number] : 1945 Acct:[id number] Age/Sex: 77 / F Adm Date: 3 Loc: 4 Room: 5R4762-5 Type: ADM IN Attending Dr: Erica Armenta MD Copies to: ~ Date of Service: 12/15/2022 Progress Narrative Note PROGRESS NOTE Progress Note: Patient continues with mild bradycardia but is stable and has been transferred out of the ICU. Pulmonary/critical care medicine will sign off. Please call ifwe can be of assistance. Documented By: Jeannie Nayak MD 3 1000 Signed By: <Electronically signed by MD Jeannie Nayak> 12/15/22 1001 [facility] Work Phone: [phone] Progress note Author Erica Armenta [facility] December 14, 2022 2:21pm Note Date/Time December 14, 2022 2 :21pm [facility] [address] [place] [address] Hospitalist Progress Note Signed Patient: Cinthya Wilson MR#: [id number] : 1945 Acct:[id number] Age/Sex: 77 / F Adm Date: 3 Loc: Room: 7H5469-3 Type: ADM IN Attending Dr: Erica Armenta [...] 2 units TID.WM.HS YESSENIA Administration Protocol Ipratropium [place] 0.5 mg 12/14/22 08:00 12/14/22 11:56 Ipratropium [place] 0.5 Mg/2.5 Ml Vial.Neb INHALATION 12/14/23 07:59 [...] Pramipexole 0.5 Mg Tablet PO 12/14/23 21:59 [facility] Sennosides 1 tab 12/14/22 09:00 12/14/22 08:17 [...] signed by Erica Armenta MD> 12/14/22 1421 [facility] Work Phone: [phone] Consult note Author Narinder Toussaint [facility] December 14, 2022 1:59pm Note Date/Time December 14, 2022 1 :44pm [facility] [address] [place] [address] Nephrology Consult Note Signed Patient: Cinthya Wilson MR#: [id number] : 1945 Acct:[id number] Age/Sex: 77 / F Adm Date: 3 Loc: Room: [address] [place] [address] Type: ADM IN Attending Dr: Erica Armenta MD Copies to: MD Narinder Bourgeois II, MD Safwan Khader, MD~ Providers Consult Date: 12/14/22 Requesting Provider: Erica Armenta MD Primary Care Provider: Lily Del Real II, MD [facility] Reason for Consult: Management of ESRD and dialysis during hospital stay History of Present Illness: Ms. 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 Patient currently gets dialysis at [place] dialysis unit on MWF schedule. Patient had recent admission on December 07 for syncopal episode and she was found to have episodes of nonsustained V. tach with prolonged QT interval. She was evaluated by cardiology and carvedilol was switched to metoprolol and she was set to follow-up with cardiology as outpatient. She did go to ER at [facility] for shortness of breath and generalized weakness. Temperature was 99.9 and she was found to be bradycardic 35 to 40 bpmwith sinus bradycardia rhythm with occasional bigeminal rhythm. Atropine was given with persistent arrhythmia with bigeminy and subsequently patient was started on amiodarone drip and transferred to [facility]. Patient was seen and examined the ICU. [...] negative unless noted below or in HPI [facility] Medical History (Updated 12/09/22 @ 09:40 [...] 12/13/22] pen needle, diabetic 32 gauge x 32 (BD Ultra-Fine Lexis Pen Needle) #100 ea [...] 200 Mg Tablet) 400 mg PO BID [facility] Stop: 12/14/23 10:09 Aspirin (Aspirin 81 Mg [...] Units/3 Ml Insuln.Pen) 0 units SUBCUT TID.WM.HS [facility]; Protocol Stop: 12/14/23 07:59 Last Admin: 12/14/22 12:39 Dose: 2 units Ipratropium [place] (Ipratropium [place] 0.5 Mg/2.5 Ml Vial.Neb) 0.5 mg INHALATION QID.RESP YESSENIA Stop: 12/14/23 07:59 Last Admin: 12/14/22 11:56 Dose: 0.5 mg Midodrine (Midodrine 5 Mg Tablet) 5 mg PO TID.7A.12P.5P PRN PRN Reason: Hypotension Stop: 12/13/23 22:48 Oxycodone/Acetaminophen (Oxycodone/Acetaminophen 5-325 Mg Tablet) 1 tab PO [id number] PRN Reason: Pain Pantoprazole Sodium (Pantoprazole 40 Mg Tablet.Dr) 40 mg PO DAILY YESSENIA Stop: 12/14/23 08:59 Last Admin: 12/14/22 08:17 Dose: 40 mg Pramipexole Dihydrochloride (Pramipexole 0.5 Mg Tablet) 0.5 mg PO HS YESSENIA Stop: 12/14/23 21:59 Sennosides (Sennosides 8.6 Mg [...] <Electronically signed by MD Narinder Toussaint> 12/14/22 2450 [facility] Work Phone: 1([phone] 509-260311-04-2023 Consult note Author Jeannie Nayak [facility] December 14, 2022 11:06am Note Date/Time December 14, 2022 1 1:02am [facility] [address] [place] [address] Pulmonology Consult Note Signed Patient: Cinthya Wilson MR#: [id number] : 1945 Acct:[id number] Age/Sex: 77 / F Adm Date: 3 Loc: 4C Room: 6E4920-1 Type: ADM IN Attending Dr: Erica Armenta MD Copies to: MD Lily Vázquez II, MD Safwan Khader, MD~ HPI Date/Time of Consultation: Date of Service: 12/14/2022 Time of Service: 10:57 Consulting Provider: Jeannie Nayak Requesting Provider: Erica Armenta History of Present Illness History of present illness: Ms. Wilson is a 77 year old female seen at the request of the hospitalist service for critical care management. Patient was excepted in transfer from [facility] emergency department after her dialysis with patient complaining of dizziness and lightheadedness. 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 Patient was subsidy transferred to the [facility] intensive care. Note that patient had prior hospitalization at [facility] for similar condition with medical therapy previously having been beta-madhu. There is also note note for concern of sick sinus syndrome which made management with beta-blockers more difficult. Patient also has a prior history of coronary disease. Patient is a non-smoker but has a diagnosis of COPD per Dr. Cheek in [place] with the patient normally on Trelegy. She is also reportedly on supplemental oxygen at 3 L/min at home. Patient reports that her respiratory status is improved and her presenting symptoms are improved. She has no other new complaints. Review of Systems Review of Systems All other systems reviewed & are negative unless noted below or in HPI [facility] Medical History (Updated 12/09/22 @ 09:40 [...] 12/13/22] pen needle, diabetic 32 gauge x /32 (BD Ultra-Fine Lexis Pen Needle) #100 ea [...] patient on a daily basis. Documented By: Jeannie Nayak MD 3 1057 Signed By: <Electronically signed by MD Jeannie Nayak> 12/14/22 7874 [facility] Work Phone: [phone] 259-401311-04-2023 Consult note Author Armando German [facility] December 14, 2022 10:11am Note Date/Time December 14, 2022 1 0:11am [facility] [address] [place] [address] Cardiology Consult Note Signed Patient: Cinthya Wilson MR#: [id number] : 1945 Acct:[id number] Age/Sex: 77 / F Adm Date: 3 Loc: Room: [address] [place] [address] Type: ADM IN Attending Dr: Erica Armenta MD Copies to: MD Erica Bourgeois II, MD William Patrick McGuinn, MD~ Cardiology HPI History of Present Illness Consult Date: 12/14/22 Reason for Consult: Nonsustained ventricular tachycardia with near syncope HPI: Ms. Wilson is a 77 year old female seen for the above She is an individual who had recently been hospitalized to [facility]. At that time she had problems with significant ventricular arrhythmias. Apparently there were significant couplets triplets and short runsof ventricular tachycardia. Therapy consisted of beta-blockers but she presents, again, with similar problems She apparently had been to dialysis on Friday. Upon returning home she became dizzy and lightheaded. On arrival to the emergency room in [place] she was having a sinus beat followed [...] angiogram 1 or 2 years ago in [facility] no intervention and because of this [...] and no additional complaints, except as documented [facility] Medical History (Updated 12/09/22 @ 09:40 [...] # (Auto) 0.5 L 1.0 (1.00-4.8) x10E3/uL Bandera # (Auto) 0.4 0.6 (0.0-0.8) x10E3/uL Eos [...] Code(s): I25.10 - Atherosclerotic heart disease of cheesh-na coronary artery without angina pectoris (4) Syncope: [...] signed by MD Armando German> 12/14/22 1011 [facility] Work Phone: [phone] History and physical note Author Jamal Schaefer [facility] December 13, 2022 8:55pm Note Date/Time December 13, 2022 8 :31pm [facility] [address] [place] [address] Hospitalist H&P Signed Patient: Cinthya Wilson MR#: [id number] : 1945 Acct:[id number] Age/Sex: 77 / F Adm Date: 3 Loc: Room: [address] [place] [address] Type: ADM IN Attending Dr: Eric Thomas DO Copies to: MD Lily Garrett II, MD Kyle T [place], ~ HPI DATE OF EXAMINATION: 12/13/22 HISTORY OF PRESENT ILLNESS: Patient is a 77-year-old female, with a number of chronic medical comorbidities noted below, who was sent to the emergency department of [facility] from hemodialysis after failing short of breath. She apparently completed the hemodialysis session. It appears that she has been wearing the heart monitor, ordered by her clinical laboratory aide in [place], reason being unclear. She feels mildlyshort of breath at times, but no chest pain. No respiratory tract symptoms, fever or chills reported. Evaluation in [place] ED showed a temperature of 99.9, bradycardia [...] systolic murmur 2/6 left and a border. [id number] ultrasound shows mild LV dysfunction. Lungs are [...] cannula oxygen GERD Diabetes mellitus type 2 [facility] Medical History (Updated 12/09/22 @ 09:40 [...] 12/06/22] pen needle, diabetic 32 gauge x /32 (BD Ultra-Fine Lexis Pen Needle) #100 ea [...] <Electronically signed by Jamal Schaefer MD> 12/13/222054 [facility] Work Phone: 1([phone]) 462-712010-30-2023 Progress note Author Edie Michel [facility] December 09, 2022 3:34pm Note Date/Time December 09, 2022 3 :32pm [facility] [address] [place] [address] Cardiology Progress Note Signed Patient: Cinthya Wilson MR#: [id number] : 1945 Acct:[id number] Age/Sex: 77 / F Adm Date: 3 Loc: 4N Room: [address] [place] [address] Type: ADM IN Attending Dr: Teresa Pagan MD Copies to: ~ Date of Service: 12/09/2022 Subjective Interval history: Ms. Wilson is a 77 year old female with PMH significant for CAD status post PCI x1 about 10 years ago in [place], ESRD on HD, hypertension, hyperlipidemia, CHF, COPD [...] No focal deficits. Objective Labs 12/09/22 05:11 10/30/23 05:11 Labs: Laboratory Results - last 24 hr 12/08/22 12/08/22 12/09/22 16:36 20:53 05:11 Corrected WBC 10.4 Uncorrected WBC Count 10.4 RBC 3.77 Hgb 10.8 L Hct 34.5 MCV 91.3 MCH 28.6 MCHC 31.3 L RDW 17.5 H Plt Count 405 MPV 7.4 Neut % (Auto) 77.6 Lymph % (Auto) 13.7 Bandera % (Auto) 6.8 Eos % (Auto) 1.4 Baso % (Auto) 0.5 Nucleat RBC Rel Count 0.0 Neut # (Auto) 8.1 H Lymph # (Auto) 1.4 Bandera # (Auto) 0.7 Eos # (Auto) 0.1 Baso # (Auto) 0.0 PHA Creatinine Clear Sodium Potassium Chloride Carbon Dioxide Anion Gap BUN Creatinine Est GFR (CKD-EPI) Glucose POC Glucose 334 294 Calcium Magnesium 12/09/22 12/09/22 12/09/22 05:11 07:48 13:39 Corrected WBC Uncorrected WBC Count RBC Hgb Hct MCV MCH MCHC RDW Plt Count MPV Neut % (Auto) Lymph % (Auto) Bandera % (Auto) Eos % (Auto) Baso % (Auto) Nucleat RBC Rel Count Neut # (Auto) Lymph # (Auto) Bandera # (Auto) Eos # (Auto) Baso # [...] Code(s): I25.10 - Atherosclerotic heart disease of cheesh-na coronary artery without angina pectoris Status: Acute [...] PCI x1 about 10 years ago in [place], ESRD on HD, hypertension, hyperlipidemia, CHF, COPD [...] with dialysis -Patient has follow-up with primary clinical laboratory aide-Dr. Lutz in [place] on 01/01/2023 Documented By: Edie Michel MD 12/09/22 1529 Signed By: <Electronically signed by Edie Michel MD> 12/09/22 5228 [facility] Work Phone: [phone] Progress note Author Narinder Toussaint [facility] December 09, 2022 2:57pm Note Date/Time December 09, 2022 2 :57pm [facility] [address] [place] [address] Nephrology Progress Note Signed Patient: Cinthya Wilson MR#: [id number] : 1945 Acct:[id number] Age/Sex: 77 / F Adm Date: 3 Loc: 4N Room: 5O1706-1 Type: ADM IN Attending Dr: Teresa Pagan [...] V. tach ontelemetry. Patient was admitted at [facility] in October 2022 for fall and was also found to have a nonsustained V. tach. She was seen by the cardiology at the time. 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 She currently goes to the [place] dialysis unit 3 times a week on [...] 98 Nasal Cannula 3 12/09/22 14:09 12/09/22 14:12/09/22 14:12/09/22 14:12/09/22 14:12/09/22 14:12/09/22 14:09 Narrative: Constitutional: Up in the bed, [...] Polysorbat 40 Mcg/Ml Vial) 80 mcg [id number] [facility] Stop: 12/11/23 10:59 Diclofenac Sodium (Diclofenac Sodium 1% Gel 50 Gm Tube) 4 gm TOPICAL QID [facility] Stop: 12/07/23 08:59 Last Admin: 12/09/22 14:17 Dose: Not Given Docusate Sodium (Docusate 100 Mg Capsule) 100 mg PO BID [facility] Stop: 12/07/23 08:59 Last Admin: 12/09/22 14:13 Dose: Not Given Glucose (Dextrose 40% Gel 15 Gm Tube) 0.6 gm PO PRN PRN PRN Reason: Hypoglycemia Stop: 12/07/23 05:09 Heparin Sodium (Porcine) (Heparin 5,000 Unit/Ml Vial) 5,000 unit SUBCUT Q8HR [facility] Stop: 12/08/23 21:59 Last Admin: 12/09/22 08:40 [...] Units/3 Ml Insuln.Pen) 0 units SUBCUT TID.WM.[facility]; Protocol Stop: 12/07/23 07:59 Last Admin: 12/09/22 14:16 Dose: Not Given Ipratropium [place] (Ipratropium [place] 0.5 Mg/2.5 Ml Vial.Neb) 0.5 mg INHALATION QID [facility] Stop: 12/07/23 08:59 Last Admin: 12/09/22 08:37 Dose: 0.5 mg Metoprolol Succinate (Metoprolol Succinate 25 Mg Tab.Er.24h) 12.5 mg PO BID YESSENIA Stop: 12/08/23 12:59 Last Admin: 12/09/22 14:27 [...] She was seen by the cardiology at [facility] in October 2022.Her echocardiogram in [...] input output Documented By: Narinder Toussaint MD 12/09/22 6367 Signed By: <Electronically signed by MD Narinder Toussaint> 12/09/22 6011 [facility] Work Phone: [phone] 570-762410-30-2023 Discharge summary Author Teresa Pagan [facility] December 09, 2022 1:41pm Note Date/Time December 09, 2022 1 :41pm [facility] [address] [place], [place] [id number] Discharge Summary Signed Patient: Cinthya Wilson MR#: [id number] : 1945 Acct:[id number] Age/Sex: 77 / F Adm Date: 3 Loc: Room: [address] [place] [address]: Teresa Pagan MD Copies to: MD Teresa Bourgeois II, MD~ Providers Date of Discharge: 12/09/22 Discharging Provider: Teresa Pagan Primary Care Provider: Lily Del Real Consults: 12/07/22 01:39 Consult to Cardiology Routine [...] Clear 7.96, Sodium 128 L, Potassium 4.4, [id number] L, Carbon Dioxide 26.7, Anion Gap 17.7 [...] % (Auto) 77.6, Lymph % (Auto) 13.7, Bandera % (Auto) 6.8, Eos % (Auto) 1.4, Baso % (Auto) 0.5, Nucleat RBC Rel Count 0.0, Neut # (Auto) 8.1 H, Lymph # (Auto) 1.4, Bandera # (Auto) 0.7, Eos # (Auto) 0.1, [...] cardiac event monitor (Routine) Timeframe: 20221209 Facility: [facility] - Location: [address] [place] [address] - O/P Ordered By: Edie Michel Follow Up: Edie Michel MD [Active Staff] - Documented By: Teresa Pagan MD 12/09/22 0936 Signed By: <Electronically signed by Teresa Pagan MD> 12/09/22 1341 [facility] Work Phone: 1([phone] Progress note Author Edie Michel [facility] December 08, 2022 6:26pm Note Date/Time December 08, 2022 6 :26pm [facility] [address] [place] [address] Cardiology Progress Note Signed Patient: iCnthya Wilson MR#: [id number] : 1945 Acct:[id number] Age/Sex: 77 / F Adm Date: 3 Loc: 4N Room: [address] [place] [address] Type: ADM INOo Attending Dr: Teresa Pagan MD Copies to: ~ Date of Service: 12/08/2022 Subjective Interval history: Ms. Wilson is a 77 year old female with PMH significant for CAD status post PCI x1 about 10 years ago in [place], ESRD on HD, hypertension, hyperlipidemia, CHF, COPD [...] % (Auto) 73.1 Lymph % (Auto) 16.3 Bandera % (Auto) 9.7 Eos % (Auto) 0.7 Baso % (Auto) 0.2 Nucleat RBC Rel Count 0.0 Neut # (Auto) 7.2 Lymph # (Auto) 1.6 Bandera # (Auto) 1.0 H Eos # (Auto) [...] MPV Neut % (Auto) Lymph % (Auto) Bandera % (Auto) Eos % (Auto) Baso % (Auto) Nucleat RBC Rel Count Neut # (Auto) Lymph # (Auto) Bandera # (Auto) Eos # (Auto) Baso # (Auto) PHA Creatinine Clear Sodium Potassium Chloride Carbon Dioxide Anion Gap BUN Creatinine Est GFR (CKD-EPI) Glucose POC Glucose 179 236 Calcium Magnesium Troponin I High Sens 23.4 H 12/08/22 16:36 Corrected WBC Uncorrected WBC Count RBC Hgb Hct MCV MCH MCHC RDW Plt Count MPV Neut % (Auto) Lymph % (Auto) Bandera % (Auto) Eos % (Auto) Baso % (Auto) Nucleat RBC Rel Count Neut # (Auto) Lymph # (Auto) Bandera # (Auto) Eos # (Auto) Baso # [...] Code(s): I25.10 - Atherosclerotic heart disease of cheesh-na coronary artery without angina pectoris Status: Acute [...] PCI x1 about 10 years ago in [place], ESRD on HD, hypertension, hyperlipidemia, CHF, COPD [...] <Electronically signed by Edie Michel MD> 12/08/22 7951 [facility] Work Phone: [phone] Progress note Author Teresa Pagan [facility] December 08, 2022 2:00pm Note Date/Time December 08, 2022 1 :49pm [facility] [address] [place] [address] Hospitalist Progress Note Signed Patient: Cinthya Wilson MR#: [id number] : 1945 Acct:[id number] Age/Sex: 77 / F Adm Date: 3 Loc: Room: 2C1378-0 Type: ADM INOo Attending Dr: Teresa Pagan [...] 2 units TID.WM.HS YESSENIA Administration Protocol Ipratropium [place] 0.5 mg 12/07/22 09:00 12/08/22 12:33 Ipratropium [place] 0.5 Mg/2.5 Ml Vial.Neb INHALATION 12/07/23 08:59 [...] Administration Documented By: Teresa Pagan MD 12/08/22 0759 Signed By: <Electronically signed by Teresa Pagan MD> 12/08/22 1400 [facility] Work Phone: [phone] Progress note Author Wood Lucas [facility] December 08, 2022 10:36am Note Date/Time December 08, 2022 1 0:36am [facility] [address] [place] [address] Nephrology Progress Note Signed Patient: Cinthya Wilson MR#: [id number] : 1945 Acct:[id number] Age/Sex: 77 / F Adm Date: 3 Loc: 4N Room: [address] [place] [address] Type: ADM INOo Attending Dr: Tereas Pagan MD Copies to: ~ Date of [...] V. tach ontelemetry. Patient was admitted at [facility] in October 2022 for fall and was also found to have a nonsustained V. tach. She was seen by the cardiology at the time. 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 She currently goes to the [place] dialysis unit 3 times a week on [...] Skin: No rashes , warm to touch [employer]: Awake,Alert, following simple command Musculoskeletal: No joint [...] 81 Mg Tablet.) 81 mg PO DAILY [facility] Stop: 12/07/23 08:59 Last Admin: 12/08/22 08:01 [...] 100 Mg Capsule) 100 mg PO BID [facility] Stop: 12/07/23 08:59 Last Admin: 12/08/22 08:01 Dose: 100 mg Glucose (Dextrose 40% Gel 15 Gm Tube) 0.6 gm PO PRN PRN PRN Reason: Hypoglycemia Stop: 12/07/23 05:09 Insulin Aspart (Insulin Aspart 300 Units/3 Ml Insuln.Pen) 0 units SUBCUT TID.WM.[facility]; Protocol Stop: 12/07/23 07:59 Last Admin: 12/08/22 08:07 Dose: 1 units Ipratropium [place] (Ipratropium [place] 0.5 Mg/2.5 Ml Vial.Neb) 0.5 mg INHALATION QID [facility] Stop: 12/07/23 08:59 Last Admin: 12/08/22 09:10 Dose: 0.5 mg Metoprolol Succinate (Metoprolol Succinate 25 Mg Tab.Er.24h) 25 mg PO BID [facility] Stop: 12/07/23 20:59 Last Admin: 12/08/22 08:03 Dose: Not Given Midodrine (Midodrine 5 Mg Tablet) 5 mg PO TID PRN PRN Reason: Hypotension Stop: 12/07/23 08:59 Multivitamins (Multivitamin 1 Tab Tablet) 1 tab PO DAILY [facility] Stop: 12/07/23 08:59 Last Admin: 12/08/22 08:01 Dose: 1 tab Oxycodone/Acetaminophen (Oxycodone/Acetaminophen 5-325 Mg Tablet) 1 tab PO Q6H PRN PRN Reason: Pain Last Admin: 12/08/22 07:25 Dose: 1 tab Pantoprazole Sodium (Pantoprazole 40 Mg Tablet.Dr) 40 mg PO DAILY [facility] Stop: 12/07/23 08:59 Last Admin: 12/08/22 09:12 Dose: 40 mg Pramipexole Dihydrochloride (Pramipexole 0.5 Mg Tablet) 0.5 mg PO [facility] Stop: 12/07/23 21:59 Last Admin: 12/07/22 22:57 Dose: 0.5 mg Prednisone (Prednisone 10 Mg Tablet) 10 mg PO DAILY [facility] Stop: 12/10/22 08:59 Last Admin: 12/08/22 08:01 [...] She was seen by the cardiology at [facility] in October 2022.Her echocardiogram in [...] signed by Wood Zavala MD> 12/08/22 1036 [facility] Work Phone: [phone] Consult note Author Edie Michel [facility] December 07, 2022 8:59pm Note Date/Time December 07, 2022 8 :43pm [facility] [facility] [address] [place] [address] Cardiology Consult Note Signed Patient: Cinthya Wilson MR#: [id number] : 1945 Acct:[id number] Age/Sex: 77 / F Adm Date: 3 Loc: N Room: [address] [place] [address] Type: ADM INOo Attending Dr: Teresa Pagan MD Copies to: MD Edie Bourgeois II, MD Mazhar Rahman, MD~ Cardiology HPI History of Present Illness Consult Date: 12/07/22 Reason for Consult: Syncope HPI: Ms. Wilson is a 77 year old female with PMH significant for CAD status post PCI x1 about 10 years ago in [place], ESRD on HD, hypertension, hyperlipidemia, CHF, COPD [...] negative unless noted below or in HPI [facility] Medical History (Updated 12/07/22 @ 20:58 [...] Lymph # (Auto) 0.9 L (1.00-4.8) x10E3/uL Bandera # (Auto) 0.8 (0.0-0.8) x10E3/uL Eos # [...] Code(s): I25.10 - Atherosclerotic heart disease of cheesh-na coronary artery without angina pectoris (4) Acute electrocardiogram changes: Code(s): R94.31 - Abnormal electrocardiogram [ECG] [EKG] (5) ESRD (end stage renal disease): Code(s): N18.6 - End stage renal disease (6) Syncope: Code(s): R55 - Syncope and collapse Plan Ms. Wilson is a 77 year old female with PMH significant for CAD status post PCI x1 about 10 years ago in [place], ESRD on HD, hypertension, hyperlipidemia, CHF, COPD [...] <Electronically signed by Edie Michel MD> 12/07/222058 [facility] Work Phone: 1([phone] 259-135310-28-2023 Consult note Author Wood Zavala [facility] December 07, 2022 11:43am Note Date/Time December 07, 2022 1 1:24am [facility] [address] [place] [address] Nephrology Consult Note Signed Patient: Cinthya Wilson MR#: [id number] : 1945 Acct:[id number] Age/Sex: 77 / F Adm Date: 3 Loc: 4N Room: 9D2106-4 Type: ADM INOo Attending Dr: Teresa Pagan MD Copies to: MD Lily Gaines II, MD Mazhar Rahman, MD~ Providers Consult Date: 12/07/22 Requesting Provider: Teresa Pagan MD Primary Care Provider: Lily Del Real II, MD HPI Reason for Consult: ESRD [...] V. tach ontelemetry. Patient was admitted at [facility] in October 2022 for fall and was also found to have a nonsustained V. tach. She was seen by the cardiology at the time. 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 She currently goes to the [facility] dialysis unit 3 times a week on [...] polydipsia Dermatological: denies any itching or rash [facility] Medical History (Updated 12/07/22 @ 11:34 [...] 81 Mg Tablet.) 81 mg PO DAILY [facility] Stop: 12/07/23 08:59 Last Admin: 12/07/22 09:46 Dose: 81 mg Atorvastatin Calcium (Atorvastatin 40 Mg Tablet) 40 mg PO QPM YESSENIA Stop: 12/07/23 20:59 Budesonide/Formoterol Fumarate (Budesonide/Formoterol 80-4.5 Mcg 60 Puff/6.9 Gm Hfa.Aer.Ad) 2 puff INHALATION BID [facility] Stop: 12/07/23 08:59 Last Admin: 12/07/22 08:07 Dose: 2 puff Calcium Acetate (Calcium Acetate 667 Mg Capsule) 667 mg PO TID.WITH.MEALS [facility] Stop: 12/07/23 07:59 Last Admin: 12/07/22 09:45 Dose: 667 mg Carvedilol (Carvedilol 3.125 Mg Tablet) 3.125 mg PO BID.WITH.MEALS [facility] Stop: 12/07/23 07:59 Last Admin: 12/07/22 09:46 Dose: 3.125 mg Diclofenac Sodium (Diclofenac Sodium 1% Gel 50 Gm Tube) 4 gm TOPICAL QID [facility] Stop: 12/07/23 08:59 Last Admin: 12/07/22 09:46 Dose: 4 gm Docusate Sodium (Docusate 100 Mg Capsule) 100 mg PO BID [facility] Stop: 12/07/23 08:59 Last Admin: 12/07/22 09:45 Dose: 100 mg Glucose (Dextrose 40% Gel 15 Gm Tube) 0.6 gm PO PRN PRN PRN Reason: Hypoglycemia Stop: 12/07/23 05:09 Insulin Aspart (Insulin Aspart 300 Units/3 Ml Insuln.Pen) 0 units SUBCUT TID.[facility]; Protocol Stop: 12/07/23 07:59 Last Admin: 12/07/22 09:56 Dose: 2 units Ipratropium [place] (Ipratropium [place] 0.5 Mg/2.5 Ml Vial.Neb) 0.5 mg INHALATION QID [facility] Stop: 12/07/23 08:59 Last Admin: 12/07/22 08:06 Dose: 0.5 mg Midodrine (Midodrine 5 Mg Tablet) 5 mg PO TID PRN PRN Reason: Hypotension Stop: 12/07/23 08:59 Multivitamins (Multivitamin 1 Tab Tablet) 1 tab PO DAILY [facility] Stop: 12/07/23 08:59 Last Admin: 12/07/22 09:45 Dose: 1 tab Oxycodone/Acetaminophen (Oxycodone/Acetaminophen 5-325 Mg Tablet) 1 tab PO Q6H PRN PRN Reason: Pain Pantoprazole Sodium (Pantoprazole 40 Mg Tablet.) 40 mg PO DAILY YESSENIA Stop: 12/07/23 [...] Skin: No rashes , warm to touch TRAFFIC AND TRANSPORT PLANNER: Awake,Alert, following simple command Musculoskeletal: No joint [...] David Archer M.D.12/06/2022 8:16 PM Dictation Location: [place] [address] 12/06/22 18:47 IMPRESSION: No acute intracranial findings. Impression dictated by: David Archer M.D.12/06/2022 8:12 PM Dictation Location: [facility]-05 Chest X-Ray 12/06/22 18:48 IMPRESSION: Redemonstration of moderate right basilar pleural-parenchymal changes. Impression dictated by: David Archer M.D.12/06/2022 8:04 PM Dictation Location: [place] [address] Any impression(s) listed above is documentation that [...] She was seen by the cardiology at [facility] in October 2022.Her echocardiogram in [...] signed by Wood Zavala MD> 12/07/22 1143 [facility] Work Phone: [phone]) 595-416910-28-2023 Progress note Author Teresa Pagan [facility] December 07, 2022 9:47am Note Date/Time December 07, 2022 9 :47am [facility] [address] [place] [address] Event Note Signed Patient: Cinthya Wilson MR#: [id number] : 1945 Acct:[id number] Age/Sex: 77 / F Adm Date: 3 Loc: Room: [address] [place] [address] Type: ADM INOo Attending Dr: Teresa Paagn MD Copies to: MD Teresa Bourgeois II, MD~ Status Event Note Event Note DATE OF EVENT: 12/07/22 TIME OF EVENT: 09:45 EVENT DETAILS: Patient was admitted after midnight please refer to H&P for details regarding her presentation. She was recently in the hospital for a fall and found to havenonsustained V. tach seen by cardiology service with recommendation to follow-upwith her clinical laboratory aide as an outpatient. She does have history of coronary disease with remote PCI. Scheduled to see her clinical laboratory aide next week. She was again brought to [...] <Electronically signed by Teresa Pagan MD> 12/07/22 0948 [facility] Work Phone: 1([phone]) 689-727110-28-2023 History and physical note Author Pennie Love [facility] December 07, 2022 2:16am Note Date/Time December 07, 2022 2 :16am [facility] [address] [place] [address] Hospitalist H&P Signed Patient: Cinthya Wilson MR#: [id number] : 1945 Acct:[id number] Age/Sex: 77 / F Adm Date: 3 Loc: 4N Room: 3L1991-5 Type: ADM INOo Attending Dr: Pennie Love DO Copies to: MD Pennie Bourgeois II, ~ HPI DATE OF EXAMINATION: 12/07/22 CHIEF COMPLAINT: [...] negative unless noted below or in HPI [facility] Medical History Anemia Anxiety Anxiety and [...] % (Auto) 5.4 % (.) 12/06/22 18:48 Bandera % (Auto) 4.3 % (.) 12/06/22 18:48 Eos % (Auto) 0.1 % (.) 12/06/22 18:48 Baso % (Auto) 0.3 % (.) 12/06/22 18:48 Nucleat RBC Rel Count 0.1 /100 WBC (0-0.5) 12/06/22 18:48 Neut # (Auto) 11.9 x10E3/uL (1.8-7.7) H 12/06/22 18:48 Lymph # (Auto) 0.7 x10E3/uL (1.00-4.8) L 12/06/22 18:48 Bandera # (Auto) 0.6 x10E3/uL (0.0-0.8) 12/06/22 18:48 [...] By: <Electronically signed by Pennie Love DO> 12/07/226 [facility] Work Phone: 1([phone]) 758-233104-10-2023 Discharge summary Author Teresa Pagan [facility] May 20, 2022 1:07pm Note Date/Time May 20, 2022 1:0 5pm [facility] [address] [place] [address] Discharge Summary Signed Patient: Cinthya Wilson MR#: [id number] : 1945 Acct:[id number] Age/Sex: 77 / F Adm Date: 3 Loc: Room: [address] [place] [address]: Teresa Pagan MD Copies to: MD Teresa Bourgeois II, MD~ Providers Date of Discharge: 05/20/22 Discharging Provider: Teresa Pagan Primary Care Provider: Lily Del Real Consults: 05/17/22 16:43 Consult to Nephrology Routine [...] % (Auto) 67.3, Lymph % (Auto) 12.8, Bandera % (Auto) 13.0, Eos % (Auto) 6.3, Baso % (Auto) 0.6, Nucleat RBC Rel Count 0.0, Neut # (Auto) 5.2, Lymph # (Auto) 1.0, Bandera # (Auto) 1.0 H, Eos # (Auto) [...] Plan Discharge Plan Patient Disposition: Home Health [facility] Diet: Diabetic and Renal Prescriptions: Continued multivitamin [...] signed by Teresa Pagan MD> 05/20/22 1307 [facility] Work Phone: 1([phone] 219-649004-10-2023 Progress note Author Geronimo Graham [facility] May 20, 2022 12:55pm Note Date/Time May 20, 2022 12: 22pm [facility] [address] [place] [address] Nephrology Progress Note Signed Patient: Stoner,Cinthya M MR#: [id number] : 1945 Acct:[id number] Age/Sex: 77 / F Adm Date: 3 Loc: 4 Room: 0T0048-5 Type: ADM IN Attending Dr: Teresa Pagan MD Copies to: ~ Date of Service: 05/20/2022 Subjective Subjective Narrative: Mrs. 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 She gets dialysis at [facility] dialysis unit and she has [...] Cannula 6 05/20/22 11:25 05/20/22 12:02 05/20/22 11:05/20/22 12:02 05/20/22 11:05/20/22 11:05/20/22 [...] Polysorbat 60 Mcg/Ml Vial) 60 mcg IV-PUSHWe@0830 [facility] Stop: 05/22/23 08:29 Heparin Sodium (Porcine) (Heparin [...] Units/3 Ml Insuln.Pen) 0 units SUBCUT TID.[facility]; Protocol Stop: 05/17/23 21:59 Last Admin: 05/20/22 11:10 Dose: Not Given Pantoprazole Sodium (Pantoprazole 40 Mg Tablet.Dr) 40 mg PO DAILY YESSENIA Stop: 05/18/23 [...] overload. [facility] (2) Bright red [...] as per the schedule Documented By: Geronimo Graham MD 05/20/22 7836 Signed By: <Electronically signed by Geronimo Graham MD> 05/20/22 3271 [facility] Work Phone: [phone]) 195-936304-10-2023 [facility] Procedure [facility]04-09-2023 Progress note Author Narinder Toussaint [facility] May 19, 2022 2:32pm Note Date/Time May 19, 2022 2:32 pm [facility] [address] [place] [address] Nephrology Progress Note Signed Patient: Cinthya Wilson MR#: [id number] : 1945 Acct:[id number] Age/Sex: 77 / F Adm Date: 3 Loc: Room: [address] [place] [address] Type: ADM IN Attending Dr: Jamal Schaefer MD Copies to: ~ Date of Service: 05/19/2022 Subjective Subjective Narrative: Mrs. 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 She gets dialysis at [facility] dialysis unit and she has [...] Units/3 Ml Insuln.Pen) 0 units SUBCUT TID.[facility]; Protocol Stop: 05/17/23 21:59 Last Admin: 05/19/22 12:17 Dose: 1 units PEG/Electrolytes/Ascorbic Acid (Der0099/Electrolytes 2000 Ml Kit) 1,000 ml PO ONCE@0600 ONE Stop: 05/20/22 04:01 PEG/Electrolytes/Ascorbic Acid (Qgx7838/Electrolytes 2000 Ml Kit) 1,000 ml PO ONCE@1800 ONE Stop: 05/19/22 15:01 Pantoprazole Sodium (Pantoprazole 40 Mg Tablet.Dr) 40 mg PO DAILY YESSENIA Stop: 05/18/23 [...] volume overload. She is currently gets dialysis [facility] dialysis unit on MWF schedule [...] signed by MD Narinder Toussaint> 05/19/22 1432 [facility] Work Phone: [phone] Progress note Author Jamal Schaefer [facility] May 19, 2022 1:38pm Note Date/Time May 19, 2022 1:38 pm [facility] [address] [place] [address] Hospitalist Progress Note Signed Patient: Cinthya Wilson MR#: [id number] : 1945 Acct:[id number] Age/Sex: 77 / F Adm Date: 3 Loc: 4 Room: [address] [place] [address] Type: ADM IN Attending Dr: Jamal Schaefer [...] Chloride 1,000 Ml IV 05/20/23 05:59 .Q24H YESSNEIA Sodium Chloride 500 mls @ 20 mls/hr 05/19/22 10:29 0.9 % Sodium Chloride IV 05/20/22 10:28 PROTOCOL PRN BLOOD TRANSFUSION Insulin Aspart 0 units 05/17/22 22:00 05/19/22 12:17 Insulin Aspart 300 Units/3 Ml Insuln.Pen SUBCUT 05/17/23 21:59 1 units TID.WM.[facility] YESSENIA Administration Protocol PEG/Electrolytes/Ascorbic Acid 1,000 ml 05/20/22 04:00 Umw4397/Electrolytes 2000 Ml Kit PO 05/20/22 04:01 ONCE@0600 ONE PEG/Electrolytes/Ascorbic Acid 1,000 ml 05/19/22 15:00 Kol8444/Electrolytes 2000 Ml Kit PO 05/19/22 15:01 ONCE@1800 ONE Pantoprazole Sodium 40 mg 05/18/22 09:00 05/19/22 08:33 Pantoprazole 40 [address] Table[address].Dr ARORA 05/18/23 08:59 40 mg DAILY YESSENIA Administration Sodium Chloride 0 ml 05/17/22 13:01 05/18/22 14:15 Sodium Chloride 0.9 % 10 Ml Syringe IV-PUSH 05/17/23 13:00 10 ml PRN PRN Administration Flush Sodium Chloride 0 ml 05/18/22 09:05 05/18/22 11:36 Sodium Chloride 0.9 % 10 Ml Syringe IV-PUSH 05/18/23 09:04 10 ml PRN PRN Administration Flush Documented By: Jamal Schaefer MD 05/19/22 133 Signed By: <Electronically signed by Jamal Schaefer MD> 05/19/224 [facility] Work Phone: [phone]) 325-279704-08-2023 Progress note Author Jamal Schaefer [facility] May 18, 2022 2:18pm Note Date/Time May 18, 2022 11:2 2am [facility] [address] [place] [address] Hospitalist Progress Note Signed Patient: Cinthya Wilson MR#: [id number] : 1945 Acct:[id number] Age/Sex: 77 / F Adm Date: 3 Loc: 4N Room: 8M7831-1 Type: ADM IN Attending Dr: Jamal Schaefer [...] of care and confirmed it with the resident/student/MATERIAL LOADER. The patient is a 77 year old [...] Flush Documented By: Jamal Schaefer MD 05/18/22 1117 Signed By: <Electronically signed by Jamal Schaefer MD> 05/18/22 1411 [facility] Work Phone: [phone] Consult note Author Narinder Toussaint [facility] May 18, 2022 12:58pm Note Date/Time May 18, 2022 12:5 8pm [facility] [address] [place] [address] Nephrology Consult Note Signed Patient: Cinthya Wilson MR#: [id number] : 1945 Acct:[id number] Age/Sex: 77 / F Adm Date: 3 Loc: Room: [address] [place] [address] Type: ADM IN Attending Dr: Jamal Schaefer MD Copies to: MD Lily Garrett II, MD Essam B Elashi, MD~ Providers Consult Date: 05/18/22 Requesting Provider: Jamal Schaefer MD Primary Care Provider: Lily Del Real II, MD [facility] Reason for Consult: Management of ESRD and dialysis during hospital stay History of Present Illness: Mrs. 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 She gets dialysis at [facility] dialysis unit and she has [...] 40 Mg Tablet) 40 mg PO DAILY [facility] Stop: 05/18/23 08:59 Heparin Sodium (Porcine) (Heparin [...] 1,000 mls @ 20 mls/hr IV .Q24H [facility] Stop: 05/19/23 05:59 Insulin Aspart (Insulin Aspart 300 Units/3 Ml Insuln.Pen) 0 units SUBCUT TID.[facility]; Protocol Stop: 05/17/23 21:59 Last Admin: 05/18/22 09:33 Dose: 1 units Isosorbide Mononitrate (Isosorbide Mononitrate 24hr Er 60 Mg Tab.Er.24h) 60 mg PO DAILY [facility] Stop: 05/18/23 08:59 PEG/Electrolytes/Ascorbic Acid (Qaq6973/Electrolytes 2000 Ml Kit) 1,000 ml PO ONCE@0600 ONE Stop: 05/20/22 04:01 PEG/Electrolytes/Ascorbic Acid (Mpb6886/Electrolytes 2000 Ml Kit) 1,000 ml PO ONCE@1800 ONE Stop: 05/19/22 15:01 Pantoprazole Sodium (Pantoprazole 40 Mg Tablet.Dr) 40 mg PO DAILY [facility] Stop: 05/18/23 08:59 Simethicone (Simethicone 80 Mg [...] Dianna Pedro M.D.05/17/2022 5:34 PM Dictation Location: [place] [address] Any impression(s) listed above is documentation that [...] overload. She is currently gets dialysis at [facility] dialysis unit on MWF schedule [...] stay Documented By: Narinder Toussaint MD 05/18/22 2150 Signed By: <Electronically signed by MD Narinder Toussaint> 05/18/22 0300 [facility] Work Phone: [phone] Consult note [facility] May 18, 2022 12:07pm Note Date/Time May 18, 2022 12:0 7pm [facility] [address] [place] [address] Gastroenterology Consult Note Signed Patient: Cinthya Wilson MR#: [id number] : 1945 Acct:[id number] Age/Sex: 77 / F Adm Date: 3 Loc: 4 Room: [address] [place] [address] Type: ADM IN Attending Dr: Jamal Schaefer [...] was 4 to 5 years ago at [facility] and she thinks that was normal, she [...] % (Auto) 70.6 Lymph % (Auto) 11.9 Bandera % (Auto) 13.9 Eos % (Auto) 2.7 Baso % (Auto) 0.9 Nucleat RBC Rel Count 0.1 Neut # (Auto) 5.2 Lymph # (Auto) 0.9 L Bandera # (Auto) 1.0 H Eos # (Auto) [...] Albumin/Globulin Ratio 1.1 Blood Type Antibody Screen 0405/17/22 05/18/22 13:38 21:09 04:56 Corrected WBC 6.2 Uncorrected WBC Count 6.2 RBC 3.11 L Hgb 9.2 L Hct 28.8 L MCV 92.7 MCH 29.6 MCHC 31.9 L RDW 19.4 H Plt Count 239 MPV 8.0 Neut % (Auto) 61.7 Lymph % (Auto) 18.3 Bandera % (Auto) 16.9 Eos % (Auto) 2.4 Baso % (Auto) 0.7 Nucleat RBC Rel Count 0.0 Neut # (Auto) 3.8 Lymph # (Auto) 1.1 Bandera # (Auto) 1.1 H Eos # (Auto) [...] MPV Neut % (Auto) Lymph % (Auto) Bandera % (Auto) Eos % (Auto) Baso % (Auto) Nucleat RBC Rel Count Neut # (Auto) Lymph # (Auto) Bandera # (Auto) Eos # (Auto) Baso # [...] <Electronically signed by Wilmer Azevedo MD> 05/18/22 1207 [facility] Work Phone: [phone]) [phone] History and physical note Author Jamal Schaefer [facility] May 17, 2022 4:51pm Note Date/Time May 17, 2022 4:51 pm [facility] [address] [place] [address] Hospitalist H&P Signed Patient: Cinthya Wilson MR#: [id number] : 1945 Acct:[id number] Age/Sex: 77 / F Adm Date: 3 Loc: 4 Room: [address] [place] [address] Type: ADM IN Attending Dr: Jamal Schaefer [...] % (Auto) 11.9 % (.) 05/17/22 13:38 Bandera % (Auto) 13.9 % (.) 05/17/22 13:38 Eos % (Auto) 2.7 % (.) 05/17/22 13:38 Baso % (Auto) 0.9 % (.) 05/17/22 13:38 Nucleat RBC Rel Count 0.1 /100 WBC (0-0.5) 05/17/22 13:38 Neut # (Auto) 5.2 x10E3/uL (1.8-7.7) 05/17/22 13:38 Lymph # (Auto) 0.9 x10E3/uL (1.00-4.8) L 05/17/22 13:38 Bandera # (Auto) 1.0 x10E3/uL (0.0-0.8) H 05/17/22 [...] signed by Jamal Schaefer MD> 05/17/22 1651 [facility] Work Phone: [phone] [facility] Evaluation note* Encounter Date Diagnosis [...] her questions were addressed. Consent was obtained. [employer] Other 01-18-2023 Progress note Author Simone Godoy [facility] February 27, 2022 12:31pm Note Date/Time February 27, 2022 1 2:32pm [facility] [address] [place] [address] Hospitalist Progress Note Signed Patient: Cinthya Wilson MR#: [id number] : 1945 Acct:[id number] Age/Sex: 76 / F Adm Date: 3 Loc: 4N Room: 7D7474-7 Type: ADM IN Attending Dr: Simone Godoy [...] 02/23/22 09:00 02/26/22 08:31 Omeprazole 20 Mg Capsule.Dr PO 02/23/23 08:59 [...] signed by Simone Godoy MD> 02/27/22 1231 [facility] Work Phone: [phone] 649-240501-17-2023 Progress note Author Geronimo Graham [facility] February 26, 2022 1:24pm Note Date/Time February 26, 2022 1 :24pm [facility] [address] [place] [address] Nephrology Progress Note Signed Patient: Cinthya Wilson MR#: [id number] : 1945 Acct:[id number] Age/Sex: 76 / F Adm Date: 3 Loc: Room: [address] [place] [address] Type: ADM IN Attending Dr: Simone Godoy [...] 02/26/22 12:00 02/26/22 12:00 02/26/22 12:02/26/22 12:02/26/22 12:00 02/26/22 12:02/26/22 12:00 Narrative: General: No acute distress [...] 5,000 Unit/Ml Vial) 5,000 unit SUBCUT Q8HR [facility] Stop: 02/22/23 21:59 Last Admin: 02/26/22 05:02 [...] Units/3 Ml Insuln.Pen) 0 units SUBCUT TID.[facility]; Protocol Stop: 02/22/23 21:59 Last Admin: 02/26/22 12:29 Dose: 1 units Melatonin (Melatonin 5 Mg Tablet) 5 mg PO QHS PRN PRN Reason: Insomnia Stop: 02/22/23 21:16 Nystatin (Nystatin 100,000 Unit/Gram Powder 15 Gm Bottle) 1 applic TOPICAL BID PRN PRN Reason: Skin Irritation Last Admin: 02/24/22 17:03 Dose: 1 applic Omeprazole (Omeprazole 20 Mg Capsule.) 40 mg PO DAILY [facility] Stop: 02/23/23 08:59 Last Admin: 02/26/22 08:31 [...] session will be tomorrow as outpatient in [facility] unit * Continue Aranesp 40 mcg weekly for anemia in chronic kidney disease.? She has adequate iron stores, B12 and folic acid. * Continue calcium acetate 667 mg with each meal. * All medications were reviewed and will continue at the same. * Outpatient dialysis is being arranged at [facility] dialysis unit closer to her home. Documented By: Geronimo Graham MD 02/26/22 1321 Signed By: <Electronically signed by Geronimo Graham MD> 02/26/22 1324 [facility] Work Phone: 1([phone]) 288-735501-17-2023 Discharge summary Author Simone Godoy [facility] February 26, 2022 12:11pm Note Date/Time February 26, 2022 1 2:09pm [facility] [address] [place] [address] Discharge Summary Signed Patient: Cinthya Wilson MR#: [id number] : 1945 Acct:[id number] Age/Sex: 76 / F Adm Date: 3 Loc: 4N Room: 8L9182-[address]: Simone Godoy MD Copies to: MD Simone Bourgeois II, MD~ Providers Date of Discharge: 02/26/22 Discharging Provider: Simone Godoy Primary Care Provider: Lily Del Real Consults: 02/22/22 21:22 Consult to Nephrology Routine [...] states that she went and saw 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? CMP with a sodium of 132, xuukgq66.4, gap 18.6, BUN 126, creatinine 5.19, glucose [...] block.? [facility] care of the hospitalist [...] Plan Discharge Plan Patient Disposition: Home Health [facility] Activity: Ambulate as Tolerated Diet: Diabetic and [...] Coccyx for protection. -Monitor for urinary retention-- tucker catheter was removed on -Assist with medication [...] Patient Ordered By: Marjorie Meehan Follow Up: [facility] D[facility] - [facility] [Outside] Lily Del Real II, MD [Primary Care Provider] - 03/07/22 10:15 am (You have been scheduled for a follow up appointment for the following date and time, please call to reschedule if needed.) Documented By: Simone Godoy MD 02/26/22 1207 Signed By: <Electronically signed by Simone Godoy MD> 02/26/22 1211 [facility] Work Phone: 1([phone]) 861-950401-16-2023 Progress note Author Marjorie Meehan [facility] February 25, 2022 5:23pm Note Date/Time February 25, 2022 5 :23pm [facility] [address] [place] [address] Hospitalist Progress Note Signed Patient: Cinthya Wilson MR#: [id number] : 1945 Acct:[id number] Age/Sex: 76 / F Adm Date: 3 Loc: 4N Room: [address] [place] [address] Type: ADM IN Attending Dr: Marjorie Meehan [...] 02/23/22 09:00 02/25/22 08:14 Omeprazole 20 Mg Capsule. PO 02/23/23 08:59 [...] <Electronically signed by Marjorie Meehan DO> 02/25/221722 [facility] Work Phone: 1(277) 355-245001-16-2023 Progress note Author Narinder Toussaint [facility] February 25, 2022 10:08am Note Date/Time February 25, 2022 1 0:08am [facility] [address] [place] [address] Nephrology Progress Note Signed Patient: Cinthya Wilson MR#: [id number] : 1945 Acct:[id number] Age/Sex: 76 / F Adm Date: 3 Loc: 4N Room: [id number] Type: ADM IN Attending Dr: Marjorie Meehan [...] Units/3 Ml Insuln.Pen) 0 units SUBCUT TID.[facility]; Protocol Stop: 02/22/23 21:59 Last Admin: 02/25/22 08:15 Dose: Not Given Melatonin (Melatonin 5 Mg Tablet) 5 mg PO QHS PRN PRN Reason: Insomnia Stop: 02/22/23 21:16 Nystatin (Nystatin 100,000 Unit/Gram Powder 15 Gm Bottle) 1 applic TOPICAL BID PRN PRN Reason: Skin Irritation Last Admin: 02/24/22 17:03 Dose: 1 applic Omeprazole (Omeprazole 20 Mg Capsule.Dr) 40 mg PO DAILY [facility] Stop: 02/23/23 08:59 Last Admin: 02/25/22 08:14 [...] 12.5 Mg Tablet) 12.5 mg PO DAILY [facility] Stop: 02/25/23 08:59 Last Admin: 02/25/22 08:14 [...] 80 Mg Tablet) 80 mg PO DAILY [facility] Stop: 02/25/23 08:59 Last Admin: 02/25/22 08:14 [...] * Outpatient dialysis is being arranged at [facility] closer to her home. Documented By: Narinder Toussaint MD 02/25/22 1004 Signed By: <Electronically signed by MD Narinder Toussaint> 02/25/22 1008 [facility] Work Phone: [phone]) 470-111001-15-2023 Progress note Author Jamal Schaefer [facility] February 24, 2022 4:30pm Note Date/Time February 24, 2022 4 :27pm [facility] [address] [place] [address] Hospitalist Progress Note Signed with Addenda Patient: Cinthya Wilson MR#: [id number] : 1945 Acct:[id number] Age/Sex: 76 / F Adm Date: 3 Loc: N Room: [address] [place] [address] Type: ADM IN Attending Dr: Jamal Schaefer MD Copies to: ~ ADDENDUM1 Echocardiogram indicates mildly reduced ejection fraction, consistent with HFmrEF. Patient is already on beta-madhu. We will add ARB in the aldosterone inhibitor. Cannot receive SGLT2 due to renal dysfunction. Referral to cardiologyas outpatient. Addendum Documented By: Jamal Schaefer MD 02/24/221629 Addendum Signed By: <Electronically signed by Jamal [...] By: <Electronically signed by Jamal Schaefer MD> 02/24/221626 [facility] Work Phone: [phone]) 599-997801-15-2023 Progress note Author Narinder Toussaint [facility] February 24, 2022 2:20pm Note Date/Time February 24, 2022 2 :20pm [facility] [address] [place] [address] Nephrology Progress Note Signed Patient: Cinthya Wilson MR#: [id number] : 1945 Acct:[id number] Age/Sex: 76 / F Adm Date: 3 Loc: 4N Room: [id number] Type: ADM IN Attending Dr: Jamal Schaefer [...] 100 Mg Capsule) 100 mg PO BID [facility] Stop: 02/23/23 08:59 Last Admin: 02/24/22 08:27 Dose: 100 mg Furosemide (Furosemide 100 Mg/10 Ml Vial) 80 mg IV-PUSH BID@0800,1600 [facility] Stop: 02/22/23 21:24 Last Admin: 02/24/22 08:26 Dose: 80 mg Heparin Sodium (Porcine) (Heparin 5,000 Unit/Ml Vial) 5,000 unit SUBCUT Q8HR [facility] Stop: 02/22/23 21:59 Last Admin: 02/24/22 05:26 Dose: 5,000 unit Heparin Sodium (Porcine) (Heparin 10,000 Unit/10 Ml Vial) 2,000 unit IV PRN PRN PRN Reason: Dialysis Stop: 02/23/23 10:58 Last Admin: 02/23/22 15:03 Dose: 2,000 unit Hydralazine HCl (Hydralazine 50 Mg Tablet) 50 mg PO TID [facility] Stop: 02/22/23 21:59 Last Admin: 02/24/22 08:27 Dose: 50 mg Ceftriaxone Sodium (Rocephin) 1 gm in 50 mls @ 100 mls/hr IV Q24H [facility] Last Infusion: 02/23/22 21:36 Dose: Infused Sodium Chloride (0.9% Sodium Chloride 1,000 Ml) 1,000 mls @ 0 mls/hr MISCELLANE.Q0M PRN PRN Reason: Dialysis Stop: 02/23/23 10:58 Last Infusion: 02/23/22 15:06 Dose: Infused Insulin Aspart (Insulin Aspart 300 Units/3 Ml Insuln.Pen) 0 units SUBCUT TID.[facility]; Protocol Stop: 02/22/23 21:59 Last Admin: 02/24/22 11:38 Dose: 1 units Isosorbide Mononitrate (Isosorbide Mononitrate 24hr Er 60 Mg Tab.Er.24h) 60 mg PO QAM [facility] Stop: 02/23/23 08:59 Last Admin: 02/24/22 08:26 Dose: 60 mg Melatonin (Melatonin 5 Mg Tablet) 5 mg PO QHS PRN PRN Reason: Insomnia Stop: 02/22/23 21:16 Nystatin (Nystatin 100,000 Unit/Gram Powder 15 Gm Bottle) 1 applic TOPICAL BID PRN PRN Reason: Skin Irritation Omeprazole (Omeprazole 20 Mg Capsule.Dr) 40 mg PO DAILY [facility] Stop: 02/23/23 08:59 Last Admin: 02/24/22 08:26 Dose: 40 mg Promethazine HCl (Promethazine 25 Mg/Ml Vial) 12.5 mg IV-PUSH Q6H PRN PRN Reason: Nausea And Vomiting Stop: 02/22/23 21:16 Sodium Bicarbonate (Sodium Bicarbonate 650 Mg Tablet) 1,300 mg PO TID [facility] Stop: 02/23/23 08:59 Last Admin: 02/24/22 08:27 [...] * Outpatient dialysis is being arranged at [facility] unit closer to her home. Documented By: Narinder Toussaint MD 02/24/22 1411 Signed By: <Electronically signed by MD Narinder Toussaint> 02/24/22 1420 [facility] Work Phone: [phone] Consult note Author Narinder Toussaint [facility] February 23, 2022 2:20pm Note Date/Time February 23, 2022 2 :20pm [facility] [address] [place] [address] Nephrology Consult Note Signed Patient: Cinthya Wilson MR#: [id number] : 1945 Acct:[id number] Age/Sex: 76 / F Adm Date: 3 Loc: Room: [address] [place] [address] Type: ADM IN Attending Dr: Jamal Schaefer MD Copies to: MD Lily Garrett II, MD Essam B Elashi, MD~ Providers Consult Date: 02/23/22 Requesting Provider: Jamal Schaefer MD Primary Care Provider: Lily Del Real II, MD [facility] Reason for Consult: CKD stage V with [...] 40 Mg Tablet) 40 mg PO QPM [facility] Stop: 02/23/23 20:59 Carvedilol (Carvedilol 12.5 Mg Tablet) 12.5 mg PO BID [facility] Stop: 02/23/23 08:59 Last Admin: 02/23/22 08:25 Dose: 12.5 mg Citalopram Hydrobromide (Citalopram 40 Mg Tablet) 40 mg PO DAILY YESSENIA Stop: 02/23/23 08:59 Last Admin: 02/23/22 08:25 Dose: 40 mg Docusate Sodium (Docusate 100 Mg Capsule) 100 mg PO BID [facility] Stop: 02/23/23 08:59 Last Admin: 02/23/22 08:25 Dose: 100 mg Furosemide (Furosemide 100 Mg/10 Ml Vial) 80 mg IV-PUSH BID@0800,1600 [facility] Stop: 02/22/23 21:24 Last Admin: 02/23/22 08:25 Dose: 80 mg Heparin Sodium (Porcine) (Heparin 5,000 Unit/Ml Vial) 5,000 unit SUBCUT Q8HR [facility] Stop: 02/22/23 21:59 Last Admin: 02/23/22 13:36 Dose: Not Given Heparin Sodium (Porcine) (Heparin 10,000 Unit/10 Ml Vial) 2,000 unit IV PRN PRN PRN Reason: Dialysis Stop: 02/23/23 10:58 Hydralazine HCl (Hydralazine 50 Mg Tablet) 50 mg PO TID [facility] Stop: 02/22/23 21:59 Last Admin: 02/23/22 13:36 Dose: Not Given Ceftriaxone Sodium (Rocephin) 1 gm in 50 mls @ 100 mls/hr IV Q24H [facility] Sodium Chloride (0.9% Sodium Chloride 1,000 Ml) 1,000 mls @ 0 mls/hr MISCELLANE.Q0M PRN PRN Reason: Dialysis Stop: 02/23/23 10:58 Insulin Aspart (Insulin Aspart 300 Units/3 Ml Insuln.Pen) 0 units SUBCUT TID.[facility]; Protocol Stop: 02/22/23 21:59 Last Admin: 02/23/22 13:35 Dose: Not Given Isosorbide Mononitrate (Isosorbide Mononitrate 24hr Er 60 Mg Tab.Er.24h) 60 mg PO QAM [facility] Stop: 02/23/23 08:59 Last Admin: 02/23/22 08:25 Dose: 60 mg Melatonin (Melatonin 5 Mg Tablet) 5 mg PO QHS PRN PRN Reason: Insomnia Stop: 02/22/23 21:16 Nystatin (Nystatin 100,000 Unit/Gram Powder 15 Gm Bottle) 1 applic TOPICAL BID PRN PRN Reason: Skin Irritation Omeprazole (Omeprazole 20 Mg Capsule.Dr) 40 mg PO DAILY [facility] Stop: 02/23/23 08:59 Last Admin: 02/23/22 08:25 Dose: 40 mg Promethazine HCl (Promethazine 25 Mg/Ml Vial) 12.5 mg IV-PUSH Q6H PRN PRN Reason: Nausea And Vomiting Stop: 02/22/23 21:16 Sodium Bicarbonate (Sodium Bicarbonate 650 Mg Tablet) 1,300 mg PO TID [facility] Stop: 02/23/23 08:59 Last Admin: 02/23/22 13:36 [...] Appearance Clear Urine pH 5.0 Ur Specific [place] 1.015 Urine Protein 100 H Urine Glucose [...] Dianna Pedro M.D.02/22/2022 8:01 PM Dictation Location: [place] [address] 02/22/22 18:50 IMPRESSION: ATROPHY AND CHRONIC MICROVASCULAR CHANGES. NO ACUTE INTRACRANIAL ABNORMALITY. Impression dictated by: Dianna Pedro M.D.02/22/2022 8:06 PM Dictation Location: [place] [address] Any impression(s) listed above is documentation that [...] stay. Documented By: Narinder Toussaint MD 02/23/22 0108 Signed By: <Electronically signed by MD Narinder Toussaint> 02/23/22 9055 [facility] Work Phone: [phone] 283-475401-14-2023 Progress note Author Jamal Schaefer [facility] February 23, 2022 9:43am Note Date/Time February 23, 2022 9 :43am [facility] [address] [place] [address] Hospitalist Progress Note Signed Patient: Cinthya Wilson MR#: [id number] : 1945 Acct:[id number] Age/Sex: 76 / F Adm Date: 3 Loc: 4N Room: [id number] Type: ADM IN Attending Dr: Jamal Schaefer [...] Vial IV-PUSH 02/22/23 21:24 80 mg BID@0800,1600 [facility] Administration Heparin Sodium (Porcine) 5,000 unit 02/22/22 22:00 02/23/22 05:26 Heparin 5,000 Unit/Ml Vial SUBCUT 02/22/23 21:59 5,000 unit Q8HR YESSENIA Administration Hydralazine HCl 50 mg 02/22/22 22:00 02/23/22 08:25 Hydralazine 50 Mg Tablet PO 02/22/23 21:59 50 mg TID EYSSENIA Administration Ceftriaxone Sodium 1 gm in 50 mls @ 100 mls/hr 02/23/22 22:00 Rocephin IV Q24H [facility] Insulin Aspart 0 units 02/22/22 22:00 02/23/22 08:26 Insulin Aspart 300 Units/3 Ml Insuln.Pen SUBCUT 02/22/23 21:59 Not Given TID.[facility] Protocol Isosorbide Mononitrate 60 mg 02/23/22 09:00 02/23/22 08:25 Isosorbide Mononitrate 24hr Er 60 Mg Tab.Er.24h PO 02/23/23 08:59 60 mg QAM [facility] Administration Melatonin 5 mg 02/22/22 21:17 Melatonin [...] By: <Electronically signed by Jamal Schaefer MD> 02/23/2243 [facility] Work Phone: [phone] History and physical note Author Gary Almaguer [facility] February 22, 2022 11:26pm Note Date/Time February 22, 2022 9 :35pm [facility] [address] [place] [address] Hospitalist H&P Signed Patient: Cinthya Wilson MR#: [id number] : 1945 Acct:[id number] Age/Sex: 76 / F Adm Date: 3 Loc: 4N Room: [address] [place] [address] Type: ADM IN Attending Dr: Gary Almaguer MD Copies to: MD Gary Bourgeois II, MD Paula G Smith, ROSTER CLERK~ HPI DATE OF EXAMINATION: 02/22/22 CHIEF COMPLAINT: [...] states that she went and saw 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 CMP with a sodium of 132, pxeldm15.4, gap 18.6, BUN 126, creatinine 5.19, glucose [...] 02/22/22 19:26 Hgb 8.2 g/dL (11.8-15.4) L 02/22/22: Hct 26.0 % (34.0-46.4) L 02/22/22: MCV 94.0 fl (80-100) 02/22/22: MCH 29.6 pg (24.7-34.3) 02/22/22: MCHC 31.5 g/dL (32.0-35.0) L 02/22/22: RDW 16.2 % (11.9-15.3) H 02/22/22: Plt Count 240 x10E3/uL (150-450) 02/22/22: MPV 7.6 fl (6.3-10.7) 02/22/22: Neut % (Auto) 71.8 % (.) 02/22/22: Lymph % (Auto) 12.3 % (.) 02/22/22: Bandera % (Auto) 11.5 % (.) 02/22/22: Eos % (Auto) 3.7 % (.) 02/22/22 Baso % (Auto) 0.7 % (.) 02/22/22 Nucleat RBC Rel Count 0.1 /100 WBC (0-0.5) 02/22/22: Neut # (Auto) 4.9 x10E3/uL (1.8-7.7) 02/22/22: Lymph # (Auto) 0.8 x10E3/uL (1.00-4.8) L 02/22/22: Bandera # (Auto) 0.8 x10E3/uL (0.0-0.8) 02/22/22: Eos # (Auto) 0.2 x10E3/uL (0.0-0.45) 02/22/22: Baso # (Auto) 0.0 x10E3/uL (0.0-0.2) 02/22/22: Monocyte Dist Width 18.44 % (0.00-20.00) 02/22/22: PT 15.6 Seconds (9.0-12.9) H 02/22/22: INR 1.4 02/22/22 19: APTT 36.0 Seconds (25.1-36.5) 02/22/22 19: PHA Creatinine Clear 9.34 02/22/22 19: Sodium 132 mmol/L (136-146) L 02/22/22 19: Potassium 5.0 mmol/L (3.5-5.1) 02/22/22 19: Chloride 100 mmol/L (95-114) 02/22/22 19: Carbon Dioxide 18.4 mmol/L (22.0-30.0) L 02/22/22: Anion Gap 18.6 mEq/L (6.0-15.0) H 02/22/22 19: BUN 126 mg/dL (9-23) H 02/22/22: Creatinine 5.19 mg/dL (0.44-1.03) H 02/22/22 19: Est GFR ( Amer) 10 mL/Min 02/22/22: Est GFR (Non-Af Amer) 8 mL/Min 02/22/22 19: Glucose 142 mg/dL (70-100) H 02/22/22: Calcium [...] pH 5.0 (5.0-9.0) 02/22/22 19: Ur Specific [place] 1.015 (1.001-1.030) 02/22/22 19: Urine Protein 100 [...] 90% ? Furosemide IV twice daily ? Tucker catheter for accurate I&O ? 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 [facility] Other 11-10-2022 Evaluation note* Encounter Date Diagnosis [...] to the patient is up to her vascular surgery physician if and when she starts dialysis. [facility] Other 10-19-2022 Evaluation note* Encounter Date Diagnosis [...] artery disease. Follows with cardiology clinic in [facility] continue same dose of Lasix Nov, Hypertensive [...] Insulin is being adjusted again by Dr. Del Real. She said that hemoglobin A1c remains below 7% Nov, Mixed hyperlipidemia (ICD-10 - E78.2) Follow-up with Dr. Edwards. [facility] Other 10-11-2022 Discharge summary Author Annette Tenorio [facility] November 20, 2021 12:43pm Note Date/Time November 20, 2021 1 2:26pm [facility] [address] [place] [address] Discharge Summary Signed Patient: Cinthya Wilson MR#: [id number] : 1945 Acct:[id number] Age/Sex: 76 / F Adm Date: 2 Loc: Room: [address] [place] [address]: Annette Tenorio MD Copies to: MD Annette Bourgeois II, MD~ Providers Date of Admission: 11/16/21 Date of Discharge: 11/20/21 Discharging Provider: Annette Tenorio Primary Care Provider: Lily Del Real Consults: 11/16/21 09:49 Consult to Nephrology Routine [...] follows in the renal clinic with Dr. Graham. Nephrology stated they believe the patient has [...] stated the patient can follow-up with Dr. Graham as an outpatient as there is no [...] and patient is to follow-up with her clinical laboratory aide in the outpatient setting. Orthopedic consult was [...] % (Auto) 70.9, Lymph % (Auto) 12.9, Bandera % (Auto) 14.1, Eos % (Auto) 1.6, Baso % (Auto) 0.5, Neut # (Auto) 5.8, Lymph # (Auto) 1.1, Bandera # (Auto) 1.2 H, Eos # (Auto) [...] go home. She does not go to care home. HEENT: [place] conjunctiva and NL buccal mucosa Neck: Supple, [...] Plan Discharge Plan Patient Disposition: Home Health [facility] Diet: Renal Additional Instructions: Home health to manage: - PT/OT to eval and treat - Monitor VS routine - Hx. HTN - Urinary assessments - Tucker catheter discontinued 11/20/21 - please monitor voiding [...] Communicate with your primary care doctor or sales merchandising specialist if your blood sugar is under 100 or above 300 on 2 consecutive checks. Communicate with your primary care doctor or sales merchandising specialist if you have any questions about [...] ask your primary care provider to obtain [facility] records entirely to follow up on all of the abnormal physical, laboratory, and imaging findings that I have not addressed. Please return back to the emergency room or seek medical attention if your symptoms worsen or return. Discharging you from [facility] does not mean that your medical care [...] with him or one of his partners.) Jeannie Nayak MD [Active Staff] - Lily Del Real II, MD [Primary Care Provider] - (The office is aware of your hospital stay and need for follow up in 1 week, the office will call you to schedule. Please call the office if you have not heard from them by the next business day.) Geronimo Graham MD [Active Staff] - 11/28/21 11:20 am (Previously scheduled appointment. ) Documented By: Annette Tenorio MD 11/20/21 0737 Signed By: <Electronically signed by Annette Tenorio MD> 11/20/21 1243 [facility] Work Phone: [phone] Progress note Author Wood Zavala [facility] November 20, 2021 12:42pm Note Date/Time November 20, 2021 1 0:51am [facility] [address] [place] [address] Nephrology Progress Note Signed Patient: Cinthya Wilson MR#: [id number] : 1945 Acct:[id number] Age/Sex: 76 / F Adm Date: 2 Loc: 4 Room: 6J5013-5 Type: ADM IN Attending Dr: Annette Tenorio [...] to.? Patient has been? been in [facility] rehab center after hospital discharge since Mondays.? Patient developed sudden onset of shortness of breath today and was reported to the hospital.? Patient told me she had rightside sales representative groceries twice for the last few weeks with 2 L fluid removal.? Patient is on Lasix at home Chest x-ray showed large right-sided pleural effusion.? Patient currently on 2 Lnasal cannula.? Tucker catheter placed which is draining yellow urine. [...] Bisacodyl (Bisacodyl 10 Mg Supp.Rect) 10 mg RI DAILY PRN PRN Reason: Constipation Stop: 11/16/22 [...] Units/3 Ml Insuln.Pen) 0 units SUBCUT TID.[facility]; Protocol Stop: 11/16/22 11:59 Last Admin: 11/20/21 07:54 Dose: Not Given Isosorbide Mononitrate (Isosorbide Mononitrate 24hr Er 60 Mg Tab.Er.24h) 60 mg PO QAM YESSENIA Stop: 11/17/22 08:59 Last Admin: 11/20/21 08:26 Dose: 60 mg Lidocaine (Lidocaine 4% Adh..Patch) 1 patch TOPICAL DAILY YESSENIA Stop: 11/16/22 13:29 Last Admin: 11/20/21 08:27 [...] Maxime Bhatti MD11/19/2021 4:39 PM Dictation Location: [place] [address] Shoulder X-Ray 11/19/21 11:19 IMPRESSION: NO EVIDENCE OF HARDWARE COMPLICATION. Impression dictated by: Quintin Matamoros Jr., D.O.11/19/2021 8:46 PM Dictation Location: [place] [address] Any impression(s) listed above is documentation that [...] be discharged from renal standpoint. * DC Tucker catheter. * Case was discussed with the patient and the family at the bedside. Documented By: Wood Zavala MD 11/20/21 1051 Signed By: <Electronically signed by Wood Zavala MD> 11/20/21 1241 [facility] Work Phone: [phone]) [phone] Hospital Discharge instructions Additional Instructions Home health to manage: - PT/OT to eval and treat - Monitor VS routine - Hx. HTN - Urinary assessments - Tucker catheter discontinued 11/20/21 - please monitor voiding [...] Communicate with your primary care doctor or sales merchandising specialist if your blood sugar is under 100 or above 300 on 2 consecutive checks. Communicate with your primary care doctor or sales merchandising specialist if you have any questions about [...] ask your primary care provider to obtain [facility] records entirely to follow up on all of the abnormal physical, laboratory, and imaging findings that I have not addressed. Please return back to the emergency room or seek medical attention if your symptoms worsen or return. Discharging you from [facility] does not mean that your medical care ends here and now. You may still need additional monitoring, work up, investigation, and treatment plan to be handled from this point on by out patient providers including your primary care provider and specialists. For any medication question, please contact your retail pharmacist or your primary care provider. Thank you.[facility] Work Phone: [phone]) 542-612010-11-2022 Consult note Author Yamileth Levi [facility] November 20, 2021 10:02am Note Date/Time November 19, 2021 1 2:57pm [facility] [address] [place] [address] Orthopedic Consult Note Signed Patient: Cinthya Wilson MR#: [id number] : 1945 Acct:[id number] Age/Sex: 76 / F Adm Date: 2 Loc: Room: [address] [place] [address] Type: ADM IN Attending Dr: Annette Tenorio [...] tells me that she went to the [facility] and they told her she [...] exenatide microspheres 2 mg/0.85 mL subcutaneous auto-injector (ByRUSBASE) 2 mg subcut QWEEK diabetes 05/16/20 [History [...] % (Auto) 72.1, Lymph % (Auto) 12.5, Bandera % (Auto) 11.6, Eos % (Auto) 3.2, Baso % (Auto) 0.6, Neut # (Auto) 6.0, Lymph # (Auto) 1.0, [place] # (Auto) 1.0H, Eos # (Auto) 0.3, [...] % (Auto) 61.8, Lymph % (Auto) 18.2, [place] % (Auto) 13.3, Eos % (Auto) 5.3, Baso % (Auto) 1.4, Neut # (Auto) 3.3, Lymph # (Auto) 1.0, [place] # (Auto) 0.7, Eos # (Auto) 0.3, [...] Code(s): I25.10 - Atherosclerotic heart disease of cheesh-na coronary artery without angina pectoris (8) Anemia: [...] signed by Yamileth Levi MD> 11/20/21 1002 [facility] Work Phone: [phone] Consult note Author David South [facility] November 19, 2021 5:31pm Note Date/Time November 19, 2021 8 :36am [facility] [address] [place] [address] Vascular Surgery Consult Note Signed Patient: Cinthya Wilson MR#: [id number] : 1945 Acct:[id number] Age/Sex: 76 / F Adm Date: 2 Loc: Room: [address] [place] [address] Type: ADM IN Attending Dr: Annette Tenorio [...] She has good hand function and adequate spotlight operator strength when compared bilaterally. This is Dr. [...] MPV Neut % (Auto) Lymph % (Auto) [place] % (Auto) Eos % (Auto) Baso % (Auto) Neut # (Auto) Lymph # (Auto) [place] # (Auto) Eos # (Auto) Baso # [...] % (Auto) 72.1 Lymph % (Auto) 12.5 Bandera % (Auto) 11.6 Eos % (Auto) 3.2 Baso % (Auto) 0.6 Neut # (Auto) 6.0 Lymph # (Auto) 1.0 Bandera # (Auto) 1.0 H Eos # (Auto) [...] signed by MD David South> 11/19/21 1731 [facility] Work Phone: [phone] Progress note Author Annette Tenorio [facility] November 19, 2021 12:16pm Note Date/Time November 19, 2021 1 2:16pm [facility] [address] [place] [address] Hospitalist Progress Note Signed Patient: Cinthya Wilson MR#: [id number] : 1945 Acct:[id number] Age/Sex: 76 / F Adm Date: 2 Loc: Room: [address] [place] [address] Type: ADM IN Attending Dr: Annette Tenorio [...] and Active Meds Allergies lisinopril Allergy (Verified 05/31/22 11:48) Cough Active Meds: Active Medications Generic [...] mg 11/16/21 09:50 Bisacodyl 10 Mg Supp.Rect RI 11/16/22 09:49 DAILY PRN Constipation Bisacodyl 10 [...] Vial SUBCUT 11/18/22 08:59 Not Given Q12HR [facility] Hydralazine HCl 50 mg 11/16/21 14:00 11/19/21 09:30 Hydralazine 50 Mg Tablet PO 11/16/22 13:59 Not Given TID [facility] Sodium Chloride 1,000 mls @ 0 mls/hr 11/17/21 09:07 11/17/21 11:11 0.9% Sodium Chloride 1,000 Ml MISCELLANE 11/17/22 09:06 Infused .Q0M PRN Infusion Dialysis As Directed Insulin Aspart 0 units 11/16/21 12:00 11/19/21 09:29 Insulin Aspart 300 Units/3 Ml Insuln.Pen SUBCUT 11/16/22 11:59 Not Given TID.[facility] Protocol Isosorbide Mononitrate 60 mg 11/17/21 09:00 11/19/21 09:30 Isosorbide Mononitrate 24hr Er 60 Mg Tab.Er.24h PO 11/17/22 08:59 Not Given QAM [facility] Lidocaine 1 patch 11/16/21 13:30 11/18/21 08:33 Lidocaine 4% Adh..Patch TOPICAL 11/16/22 13:29 1 patch DAILY [facility] Administration Multivitamins 1 tab 11/17/21 09:00 11/19/21 09:31 Multivitamin 1 Tab Tablet PO 11/17/22 08:59 Not Given DAILY YESSENIA Nitroglycerin 0.4 mg 11/16/21 09:50 Nitroglycerin 0.4 [...] 5. Bladder urinary retention -Patient had a Tucker catheter placed at previous hospital stay in [place] aspatient experienced difficulty starting urine stream -Patient has been constipated, which may be causing bladder or urinary retention 6. Elevated troponin. No chest pain. No active angina. No clinical evidence to suggest ACS. Patient is to follow-up with her clinical laboratory aide in the outpatientsetting. She may need to have additional ischemic evaluation electively. Past medical history: COPD -continue albuterol/ipratropium Hypertension -continue carvedilol, hydralazine Diabetes -continue insulin aspart CAD -continue atorvastatin Documented By: Annette Tenorio MD 11/19/21 1118 Signed By: <Electronically signed by Annette Tenorio MD> 11/19/21 1216 [facility] Work Phone: 1(192) 725-918910-10-2022 Progress note Author Wood Zavala [facility] November 19, 2021 11:35am Note Date/Time November 19, 2021 1 1:32am [facility] [address] [place] [address] Nephrology Progress Note Signed Patient: Cinthya iWlson MR#: [id number] : 1945 Acct:[id number] Age/Sex: 76 / F Adm Date: 2 Loc: Room: [address] [place] [address] Type: ADM IN Attending Dr: Annette Tenorio [...] to. Patient has been been in [facility] rehab center after hospital discharge since Mondays. Patient developed sudden onset of shortness of breath today and was reported to the hospital. Patient told me she had rightside sales representative groceries twice for the last few weeks with 2 L fluid removal. Patient is on Lasix at home Chest x-ray showed large right-sided pleural effusion. Patient currently on 2 Lnasal cannula. Tucker catheter placed which is draining yellow urine. [...] visible mass Skin: No rashes or bruises TRAFFIC AND TRANSPORT PLANNER: Awake,Alert, following simple command Musculoskeletal: No joint [...] Bisacodyl (Bisacodyl 10 Mg Supp.Rect) 10 mg RI DAILY PRN PRN Reason: Constipation Stop: 11/16/22 [...] Mg/10 Ml Vial) 80 mg IV-PUSH BID@0800,1600 [facility] Stop: 11/16/22 13:59 Last Admin: 11/19/21 09:31 [...] Units/3 Ml Insuln.Pen) 0 units SUBCUT TID.WM.[facility]; Protocol Stop: 11/16/22 11:59 Last Admin: 11/19/21 09:29 Dose: Not Given Isosorbide Mononitrate (Isosorbide Mononitrate 24hr Er 60 Mg Tab.Er.24h) 60 mg PO QAM [facility] Stop: 11/17/22 08:59 Last Admin: 11/19/21 11:24 Dose: 60 mg Lidocaine (Lidocaine 4% Adh..Patch) 1 patch TOPICAL DAILY [facility] Stop: 11/16/22 13:29 Last Admin: 11/19/21 11:25 Dose: 1 patch Multivitamins (Multivitamin 1 Tab Tablet) 1 tab PO DAILY [facility] Stop: 11/17/22 08:59 Last Admin: 11/19/21 09:31 Dose: Not Given Nitroglycerin (Nitroglycerin 0.4 Mg Tab.Subl) 0.4 mg SUBLINGUAL Q5M PRN PRN Reason: Chest Pain Stop: 11/16/22 09:49 Omeprazole (Omeprazole 20 Mg Capsule.Dr) 40 mg PO DAILY [facility] Stop: 11/17/22 08:59 Last Admin: 11/19/21 11:24 [...] days after discharge. Outpatient follow-up with Dr. Graham in 1 week. Documented By: Wood Zavala MD 11/19/21 112 Signed By: <Electronically signed by Wood Zavala MD> 11/19/21 1134 [facility] Work Phone: 1([phone]) 222-434710-09-2022 Progress note Author Geronimo Graham [facility] November 18, 2021 1:16pm Note Date/Time November 18, 2021 1: 16pm [facility] [address] [place] [address] Nephrology Progress Note Signed Patient: Cinthya Wilson MR#: [id number] : 1945 Acct:[id number] Age/Sex: 76 / F Adm Date: 2 Loc: Room: [address] [place] [address] Type: ADM IN Attending Dr: Carlton Mtz [...] to. Patient has been been in [facility] rehab center after hospital discharge since Mondays. Patient developed sudden onset of shortness of breath today and was reported to the hospital. 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 Patient is on Lasix at home Chest x-ray showed large right-sided pleural effusion. Patient currently on 2 Lnasal cannula. Tucker catheter placed which is draining yellow urine. [...] Bisacodyl (Bisacodyl 10 Mg Supp.Rect) 10 mg RI DAILY PRN PRN Reason: Constipation Stop: 11/16/22 [...] Units/3 Ml Insuln.Pen) 0 units SUBCUT TID.WM.[facility]; Protocol Stop: 11/16/22 11:59 Last Admin: 11/18/21 08:40 Dose: 1 units Isosorbide Mononitrate (Isosorbide Mononitrate 24hr Er 60 Mg Tab.Er.24h) 60 mg PO QAM [facility] Stop: 11/17/22 08:59 Last Admin: 11/18/21 08:32 Dose: 60 mg Lidocaine (Lidocaine 4% Adh..Patch) 1 patch TOPICAL DAILY YESSENIA Stop: 11/16/22 13:29 Last Admin: 11/18/21 08:33 [...] reading physician into a diagnostic report(s) for iCnthya Wilson. I have reviewed the report(s) and [...] tomorrow. Patient will be set up at [place] hemodialysis unit before discharge. Patient needs fistulogram and angioplasty of left upper extremity AV fistula before discharge. Renal team will continue to follow. Call if any question Documented By: Geronimo Graham MD 11/18/217 Signed By: <Electronically signed by Geronimo Graham MD> 11/18/21 1310 [facility] Work Phone: [phone] 167-925310-09-2022 Progress note Author Carlton Mtz [facility] November 18, 2021 11:59am Note Date/Time November 18, 2021 11 :59am [facility] [address] [place] [address] Hospitalist Progress Note Signed Patient: Cinthya Wilson MR#: [id number] : 1945 Acct:[id number] Age/Sex: 76 / F Adm Date: 2 Loc: 4 Room: [address] [place] [address] Type: ADM IN Attending Dr: Carlton Mtz [...] to lay flat. Patient still has a Tucker catheter in place and is urinating without [...] mg 11/16/21 09:50 Bisacodyl 10 Mg Supp.Rect RI 11/16/22 09:49 DAILY PRN Constipation Bisacodyl 10 [...] -Continue lidocaine patches 5. Bladder urinary retention. Tucker catheter in place. Patient had a Tucker catheter on a previous hospital stay in [place]. Patient experienced difficulty starting urine stream at the correction facility. Patient does have constipation, which may be causing bladder urinary retention. Now on a bowel regimen. Tucker catheter should be removed tomorrow or the [...] <Electronically signed by Carlton Mtz DO> 11/18/21 9012 [facility] Work Phone: 1([phone]) 731-336010-08-2022 Progress note Author Carlton Mtz [facility] November 17, 2021 4:35pm Note Date/Time November 17, 2021 4: 20pm [facility] [address] [place] [address] Hospitalist Progress Note Signed Patient: Cinthya Wilson MR#: [id number] : 1945 Acct:[id number] Age/Sex: 76 / F Adm Date: 2 Loc: Room: [address] [place] [address] Type: ADM IN Attending Dr: Carlton Mtz [...] mg 11/16/21 09:50 Bisacodyl 10 Mg Supp.Rect RI 11/16/22 09:49 DAILY PRN Constipation Bisacodyl 10 [...] at 7.2. Documented By: Carlton Mtz DO 1618 Signed By: <Electronically signed by Carlton Mtz, > 11/17/21 0653 [facility] Work Phone: 1([phone]) 875-715710-08-2022 Progress note Author Geronimo Graham [facility] November 17, 2021 12:56pm Note Date/Time November 17, 2021 12 :56pm [facility] [address] [place] [address] Nephrology Progress Note Signed Patient: Cinthya Wilson MR#: [id number] : 1945 Acct:[id number] Age/Sex: 76 / F Adm Date: 2 Loc: Room: [address] [place] [address] Type: ADM IN Attending Dr: Carlton Mtz [...] to. Patient has been been in [facility] rehab center after hospital discharge since Mondays. Patient developed sudden onset of shortness of breath today and was reported to the hospital. 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 Patient is on Lasix at home Chest x-ray showed large right-sided pleural effusion. Patient currently on 2 Lnasal cannula. Tucker catheter placed which is draining yellow urine. [...] Bisacodyl (Bisacodyl 10 Mg Supp.Rect) 10 mg RI DAILY PRN PRN Reason: Constipation Stop: 11/16/22 [...] 50 Mg Tablet) 50 mg PO TID [facility] Stop: 11/16/22 13:59 Last Admin: 11/17/21 09:15 Dose: Not Given Sodium Chloride (0.9% Sodium Chloride 1,000 Ml) 1,000 mls @ 0 mls/hr MISCELLANE.Q0M PRN PRN Reason: Dialysis Stop: 11/17/22 09:06 Last Infusion: 11/17/21 11:11 Dose: Infused Insulin Aspart (Insulin Aspart 300 Units/3 Ml Insuln.Pen) 0 units SUBCUT TID.WM.[facility]; Protocol Stop: 11/16/22 11:59 Last Admin: 11/17/21 12:05 Dose: 2 units Isosorbide Mononitrate (Isosorbide Mononitrate 24hr Er 60 Mg Tab.Er.24h) 60 mg PO QAM [facility] Stop: 11/17/22 08:59 Last Admin: 11/17/21 11:58 Dose: 60 mg Lidocaine (Lidocaine 4% Adh..Patch) 1 patch TOPICAL DAILY [facility] Stop: 11/16/22 13:29 Last Admin: 11/17/21 11:58 Dose: 1 patch Multivitamins (Multivitamin 1 Tab Tablet) 1 tab PO DAILY [facility] Stop: 11/17/22 08:59 Last Admin: 11/17/21 11:57 Dose: 1 tab Nitroglycerin (Nitroglycerin 0.4 Mg Tab.Subl) 0.4 mg SUBLINGUAL Q5M PRN PRN Reason: Chest Pain Stop: 11/16/22 09:49 Omeprazole (Omeprazole 20 Mg Capsule.Dr) 40 mg PO DAILY [facility] Stop: 11/17/22 08:59 Last Admin: 11/17/21 11:58 [...] Dianna Pedro M.D.11/16/2021 4:16 PM Dictation Location: [place] [address] Shoulder X-Ray 11/16/21 13:13 IMPRESSION: NEW SHOULDER REPLACEMENT. QUESTION OF POSTOPERATIVE CHANGE INVOLVING THE ACROMION. CORRELATION WITH SURGICAL PROCEDURE IS SUGGESTED. Impression dictated by: Dianna Pedro M.D.11/16/2021 6:11 PM Dictation Location: [place] [address] Chest X-Ray 11/16/21 15:28 IMPRESSION: There is a right-sided pleural effusion which has significantly decreased in size. There is no pneumothorax. Impression dictated by: Jossie Díaz M.D.11/16/2021 3:43 PM Dictation Location: [place] [address] Chest X-Ray 11/17/21 05:00 IMPRESSION: Developing mild RIGHT basilar pleural-parenchymal changes. Continued mild LEFT basilar pleural-parenchymal change. Impression dictated by: David Archer M.D.11/17/2021 7:37 AM Dictation Location: [place] [address] Any impression(s) listed above is documentation that [...] tomorrow. Patient will be set up at [place] hemodialysis unit before discharge. Patient needs fistulogram and angioplasty of left upper extremity AV fistula before discharge. Renal team will continue to follow. Call if any question Documented By: Geronimo Graham MD 11/17/21 9497 Signed By: <Electronically signed by Geronimo Graham MD> 11/17/21 7838 [facility] Work Phone: [phone]) 394-648010-08-2022 Progress note Author Danny Pitts [facility] November 17, 2021 11:16am Note Date/Time November 17, 2021 11 :06am [facility] [address] [place] [address] Pulmonology Progress Note Signed Patient: Cinthya Wilson MR#: [id number] : 1945 Acct:[id number] Age/Sex: 76 / F Adm Date: 2 Loc: 4 Room: [address] [place] [address] Type: ADM IN Attending Dr: Carlton Mtz [...] signed by Danny Pitts MD> 11/17/21 1116 [facility] Work Phone: [phone] Consult note Author Geronimo Graham [facility] November 16, 2021 3:26pm Note Date/Time November 16, 2021 3: 26pm [facility] [address] [place], [place] [address] Nephrology Consult Note Signed Patient: Cinthya Wislon MR#: [id number] : 1945 Acct:[id number] Age/Sex: 76 / F Adm Date: 2 Loc: 4 Room: 7G1290-5 Type: ADM IN Attending Dr: Carlton Mtz DO Copies to: MD Lily Allen II, MD Kristopher L Lindbloom, DO~ Providers Consult Date: 11/16/21 Requesting Provider: Carlton Mtz DO Primary Care Provider: Lily Del Real II, MD [facility] Reason for Consult: CKD progression and [...] to. Patient has been been in [facility]hab [facility] after hospital discharge since Mondays. Patient developed sudden onset of shortness of breath today and was reported to the hospital. Patient told me she had rightside sales representative groceries twice for the last few weeks with 2 L fluid removal. Patient is on Lasix at home Chest x-ray showed large right-sided pleural effusion. Patient currently on 2 Lnasal cannula. Tucker catheter placed which is draining yellow urine. [...] History (Updated 11/16/21 @ 15:21 by Geronimo Graham MD) Anemia Anxiety Anxiety and depression Arthritis [...] Bisacodyl (Bisacodyl 10 Mg Supp.Rect) 10 mg RI DAILY PRN PRN Reason: Constipation Stop: 11/16/22 09:49 Bisacodyl (Bisacodyl 5 Mg Tablet.Dr) 10 mg PO DAILY PRN PRN Reason: Constipation Stop: 11/16/22 09:49 Carvedilol (Carvedilol 12.5 Mg Tablet) 12.5 mg PO BID.WITH.MEALS [facility] Stop: 11/16/22 16:59 Citalopram Hydrobromide (Citalopram 40 Mg Tablet) 40 mg PO DAILY [facility] Stop: 11/17/22 08:59 Dextrose (Dextrose 50% In Water 25 Gm/50 Ml Syringe) 0 gm IV-PUSH PRN PRN PRN Reason: Hypoglycemia Stop: 11/16/22 09:52 Docusate Sodium (Docusate 100 Mg Capsule) 100 mg PO BID [facility] Stop: 11/16/22 20:59 Enoxaparin Sodium (Enoxaparin 40 Mg/0.4 Ml Syringe) 40 mg SUBCUT DAILY@10 YESSENIA Stop: 11/17/22 09:59 Furosemide (Furosemide 100 Mg/10 Ml Vial) 80 mg IV-PUSH BID@0800,1600 [facility] Stop: 11/16/22 13:59 Last Admin: 11/16/21 14:45 Dose: 80 mg Glucose (Dextrose 40% Gel 15 Gm Tube) 0 gm PO PRN PRN PRN Reason: Hypoglycemia Stop: 11/16/22 09:52 Hydralazine HCl (Hydralazine 50 Mg Tablet) 50 mg PO TID [facility] Stop: 11/16/22 13:59 Last Admin: 11/16/21 14:45 Dose: 50 mg Insulin Aspart (Insulin Aspart 300 Units/3 Ml Insuln.Pen) 0 units SUBCUT TID..[facility]; Protocol Stop: 11/16/22 11:59 Last Admin: 11/16/21 12:15 Dose: 1 units Isosorbide Mononitrate (Isosorbide Mononitrate 24hr Er 60 Mg Tab.Er.24h) 60 mg PO QAM [facility] Stop: 11/17/22 08:59 Lidocaine (Lidocaine 4% Adh..Patch) 1 patch TOPICAL DAILY [facility] Stop: 11/16/22 13:29 Last Admin: 11/16/21 14:45 Dose: 1 patch Multivitamins (Multivitamin 1 Tab Tablet) 1 tab PO DAILY [facility] Stop: 11/17/22 08:59 Nitroglycerin (Nitroglycerin 0.4 Mg Tab.Subl) 0.4 mg SUBLINGUAL Q5M PRN PRN Reason: Chest Pain Stop: 11/16/22 09:49 Omeprazole (Omeprazole 20 Mg Capsule.Dr) 40 mg PO DAILY YESSENIA Stop: 11/17/22 08:59 Sodium Chloride (Sodium Chloride [...] David Archer M.D.11/16/2021 9:39 AM Dictation Location: [place] [address] Any impression(s) listed above is documentation that [...] Call if any question Documented By: Geronimo Graham MD 11/16/21 0333 Signed By: <Electronically signed by Geronimo Graham MD> 11/16/21 9544 [facility] Work Phone: [phone] Consult note Author Danny Pitts [facility] November 16, 2021 3:01pm Note Date/Time November 16, 2021 2: 11pm [facility] [address] [place] [address] Pulmonology Consult Note Signed Patient: Cinthya Wilson MR#: [id number] : 1945 Acct:[id number] Age/Sex: 76 / F Adm Date: 2 Loc: 4 Room: [address] [place] [address] Type: ADM IN Attending Dr: Carlton Mtz [...] negative unless noted below or in HPI [facility] Vaccinated for COVID-19?: Yes Medical History (Updated [...] hemodialysis Documented By: Danny Pitts MD 11/16/21 3708 Signed By: <Electronically signed by Danny Pitts MD> 11/16/21 0683 [facility] Work Phone: [phone] History and physical note Author Carlton Mtz [facility] November 16, 2021 1:13pm Note Date/Time November 16, 2021 1: 13pm [facility] [address] [place] [address] Hospitalist H&P Signed Patient: Cinthya Wilson MR#: [id number] : 1945 Acct:[id number] Age/Sex: 76 / F Adm Date: 2 Loc: Room: [address] [place] [address] Type: ADM IN Attending Dr: Carlton Mtz DO Copies to: MD Carlton Bourgeois II, DO~ HPI DATE OF EXAMINATION: 11/16/21 CHIEF COMPLAINT: Progressive dyspnea HISTORY OF PRESENT ILLNESS: This is a 76-year-old woman who presented to an outside hospital emergency room with progressive dyspnea. She has been at a correction facility after right shoulder injury for physical [...] which she said was worse at the correction facility but is better now. She does [...] exenatide microspheres 2 mg/0.85 mL subcutaneous auto-injector ([employer] BCise) 2 mg subcut QWEEK diabetes 05/16/20 [...] % (Auto) 12.2 % (.) 11/16/21 11:25 Bandera % (Auto) 14.0 % (.) 11/16/21 11:25 Eos % (Auto) 4.4 % (.) 11/16/21 11:25 Baso % (Auto) 0.7 % (.) 11/16/21 11:25 Neut # (Auto) 4.2 x10E3/uL (1.8-7.7) 11/16/21 11:25 Lymph # (Auto) 0.7 x10E3/uL (1.00-4.8) L 11/16/21 11:25 Bandera # (Auto) 0.8 x10E3/uL (0.0-0.8) 11/16/21 11:25 [...] signed by Carlton Mtz DO> 11/16/21 1313 [facility] Work Phone: [phone]) 951-889308-11-2022 Evaluation note* Encounter Date Diagnosis Assessment Notes [...] protocol. She has upcoming appointment with her vascular surgery physician in November and will continue to follow [...] with this plan, and denies any questions. [employer] Other 06-15-2022 Evaluation note* Encounter Date Diagnosis [...] artery disease. Follows with cardiology clinic in [facility] continue same dose of Lasix Jul, Hypertensive [...] Insulin is being adjusted again by Dr. Del Real. She said that hemoglobin A1c remains below 7% Jul, Mixed hyperlipidemia (ICD-10 - E78.2) Follow-up with Dr. Edwards. [employer] Other 05-16-2022 Evaluation note* Encounter Date Diagnosis Assessment Notes Treatment Notes Treatment Clinical Notes June, Pre-op testing (ICD-10 - Z01.818) [employer] Other 05-12-2022 Evaluation note* Encounter Date Diagnosis [...] scheduled for her in the near future. [employer] Other 04-06-2022 Evaluation note* Encounter Date Diagnosis [...] Insulin is being adjusted again by Dr. Del Real. She said that hemoglobin A1c 6.8%. May, Mixed hyperlipidemia (ICD-10 - E78.2) Follow-up with Dr. Edwards. [employer] Other [id number] Note [id number]#1.[facility] [id number] 02-20-[address] ROME POST [...] or concerns, please call the office at [phone] -Follow [facility] as scheduled[facility]onUjdlceul02-14-9699 [facility] 2SOUT Clinical Discharge Summary PERSON INFORMATION Name CINTHYA WILSON Age 75 Years 1945 Sex FEMALE Language Iraqi PCP LILY DEL REAL Marital Status Med Service Med/Surg Acct# Arrival 02/19/2021 06:01:00 Visit Reason SURGERY - RIGHT REVERSE TOTAL SHOULDER - ARTHREX Acuity LOS 000 28:08 Address: [address] [facility] [address] Comment: PROVIDER INFORMATION VITALS INFORMATION Vital Sign [...] range between ( 74 and 118 ) [facility] Order 02/20/2021 8:32 AM Tube Collected: [...] EDUCATION INFORMATION Instructions: Garo- Post Op Shoulder (MHAHUDNEO) Follow up: With: Address: When: Carlo Wyman [address], [address] [place] [address] Business (1) 02/27/2021 1:15 PM With: Address: When: LILY DEL REAL [facility], [address] [place], [place] [id number] Business (1) DIAGNOSIS 1:Status post reverse total arthroplasty of right shoulder; 2:Osteoarthritis of right shoulder; 3:Stage 4 chronic kidney disease; 4:CHF (congestive heart failure); 5:COPD (chronic obstructive pulmonary disease); 6:GERD (gastroesophageal reflux disease); 7:Hypertension; 8:Diabetes Comment: MYRA LOPEZ [facility]01-10-2022 Note [id number]-23-20[facility] Evaluation note* Encounter Date Diagnosis Assessment [...] Hematuria (ICD-10 - R31.9) Patient presented to [facility] with hematuria. Cystoscopy and ureteroscopy [...] Insulin is being adjusted again by Dr. Del Real. She said that hemoglobin A1c 6.8%. Dec, Mixed hyperlipidemia (ICD-10 - E78.2) Follow-up with Dr. Edwards. [employer] Other 08-13-2021 NoteHNO ID: [id number] Author: Yamileth Martin MD Service: ? Author Type: Physician Type: Progress Notes Filed: 10/01/2020 12:14 AM Note Text: VIRTUAL VISIT PROGRESS NOTE This is a virtual visit using [employer] video visit. It required patient-provider interaction for the medical decision making as documented below. Persons Present: patient and patient's spouse/significant other Chief Complaint/Reason: Hematuria HPI: Cinthya Wilson is a 75 year old female who presents for post-op evaluation. She was evaluated at [facility] in the past, which prompted ureteroscopy. Ureteroscopy was unsuccessful due to intrarenal bleeding. Postoperatively she had hematuria that required cbi, she was transferred to [facility]. She is s/p cysto, left ureteral [...] biopsy on 09/18/20. Path (more content not included)...[facility]07-30-2021 NoteHNO ID: [id number] Author: Yamileth Martin MD Service: ? Author Type: Physician Type: Progress Notes Filed: 09/18/2020 1:15 AM Note Text: VIRTUAL VISIT PROGRESS NOTE This is a virtual visit using MyChart video visit. It required patient-provider interaction for the medical decision making as documented below. 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 Patient had history of hematuria which was evaluated in [facility] before. She needsd blood transfusion. She has elevated creatinine. Scr 2.02 ng/mL Her non contrast CT is suboptimal but she underwent cystoscopy, left retrograde pyelogram, left ureteroscopy. Due to bleeding his doctor wasn't able to take biopsies. Postprocedure she was transferred to [facility] for observation. Data Reviewed: Most recent labs and imaging results. Labs Creatinine Date Value Ref Range Status 09/03/2020 2.02 (H) 0.58 - 0.96 mg/dL Final 09/02/2020 2.38 (H) 0.58 - 0.96 mg/dL Final 09/01/2020 3.07 (H) 0.58 - 0.96 mg/dL Final 03/22/2015 1.57 (H) 0.70 - 1.40 mg/dL Final Imaging Uploaded in [facility] HISTORY REVIEWED (electronic chart updated): PMH: [...] the date of the service which included [id number] patient care and completing clinical documentation Scribe Attestation: By signing my name below, I, Nga Gali, attest that this documentation has been prepared under the direction and in the presence of Dr. Yamileth Martin MD. Electronically signed: nAdrei Thompson, September 08, 2020 2:06 PM Yamileth Fox MD, personally performed the services described in this documentation. All medical record entries made by the scribe were at my (more content not included)...[facility]07-25-2021 NoteHNO ID: [id number] Author: Teofilo Hess MD Service: Urology Author Type: Physician Type: Progress Notes Filed: 09/03/2020 10:29 AM Note Text: [facility] UROLOGY PROGRESS NOTE Name: Cinthya Wilson After Hours [facility] Urology Service Pager: [phone] ASSESSMENT AND PLAN Cinthya Wilson is a 75 year old female with history of HTN, DM2, stage III CKD, CAD s/p 1 stent in 2010, and polyarticular joint pain who presented to [facility] for evaluation of hematuria, she [...] # -SCr: stable -UOP: Continue to monitor, -Tucker: removed passed TOV - DAVID - will [...] . Fredo De Jesus MD Urology Resident [facility] [place] Pager [phone], After Hours and Weekends Urology Service Pager [phone] SUBJECTIVE -Doing well, has ride for today, [...] 0659 09/03/20 07 - 09/04/20 0659 Shift 2676-5186 4237-1027 6129-4433 24 Hour Total 6720-5646 6876-9521 7478-9548 24 Hour Total INTAKE PO 370 370 PO 370 370 IV 150 350 500 Volume (mL) (NaCl 0.9% iv infusion) 150 350 500 Irrigants 300 300 Irrigant/Flush Amount In ([REMOVED] Indwelling Urinary Catheter 08/31/20 Assessment Tucker 09/02/20 1043) 300 300 Shift Total 670 014 097 0130 OUTPUT Urine 9335 787 9708 3375 Void (ml) 942 478 8477 2375 Urine Not Saved. 2 x 3 x 5 x Output ([REMOVED] Indwelling Urinary Catheter 08/31/20 Assessment Tucker 09/02/20 1043) 1000 1000 # of BMs Number of BMs 1 x 1 x 2 x Shift Total 6858 171 0187 3375 Weight (kg) Physical Exam General: Well-appearing, [...] and patient agrees with plan. Teofilo Hess, [facility]07-24-2021 NoteHNO ID: [id number] Author: Chetan Rogers MD Service: Urology Author Type: Fellow Type: Progress Notes Filed: 09/02/2020 10:01 AM Note Text: [facility] UROLOGY PROGRESS NOTE Name: Cinthya Wilson After Hours [facility] Urology Service Pager: [phone] ASSESSMENT AND PLAN Cinthya Wilson is a 75 year old female with history of HTN, DM2, stage III CKD, CAD s/p 1 stent in 2010, and polyarticular joint pain who presented to [facility] for evaluation of hematuria, she [...] # -SCr: stable -UOP: Continue to monitor, -Tucker: 3-way tucker in place, can remove today and do [...] . Fredo De Jesus MD Urology Resident [facility] [place] Pager [phone], After Hours and Weekends Urology Service Pager [phone] SUBJECTIVE -CBI was off, no fevers/chills overnight, [...] 0659 09/02/20 07 - 09/03/20 0659 Shift 2492-5443 7068-2033 8260-7005 24 Hour Total 2234-7763 6639-8871 9656-9661 24 Hour Total INTAKE PO 90 90 120 120 PO 90 90 120 120 IV 600 100 700 Volume (mL) (NaCl 0.9% iv infusion) 600 100 700 Irrigants 6500 3000 6000 39145 Irrigant/Flush Amount In ( Indwelling Urinary Catheter 08/31/20 Assessment Tucker) 6500 3000 6000 03098 Shift Total 7190 3100 6000 43394 120 120 OUTPUT Urine 8700 3750 8000 71133 Urine Not Saved. 1 x 1 x Output ( Indwelling Urinary Catheter 08/31/20 Assessment Tucker) 8700 3750 8000 29515 Shift Total 8700 3750 8000 23930 Weight (kg) Physical Exam General: Well-appearing, no [...] cbi, feeling well overall osh cultures with rivera sensitive e coli F/u biopsy from OSH Will dc with cipro and ppx bactrim Needs f/u to discuss further surgical plans Chetan Rogers MD Clinical Fellow Male Genitourinary Reconstruction AND Prosthetic Surgery For daytime patient-related issues, please contact the resident associated with the original progress note. For weekend or after hours issues [place] [phone].[facility]07-24-2021 NoteHNO ID: [id number] Author: Interface Note Service: ? Author Type: ? Type: Progress Notes Filed: 09/02/2020 2:45 AM Note Text: Epic Scheduled Downtime: 09/02/2020 1:01:00 AM to 09/02/2020 2:33:00 [facility]07-23-2021 NoteHNO ID: [id number] Author: Jessica Escudero RN Service: Care Management Author Type: Registered Nurse Type: Care Mgt Initial Assessment Filed: 09/01/2020 3:05 PM Note Text: CARE MANAGEMENT PROGRESS NOTE SERVICE DATE: 09/01/2020 SERVICE TIME: 3:01 PM LOS: 0 days [place] of Choice Given: No Reason Not Given: No placements necessary Caregiver is ready, willing and able to meet the patient's needs as recommended by the inter-professional team:: No Caregiver needed Does the patient have an acute stroke diagnosis, or has the patient had a stroke during this admission?: No Needs Prior to Discharge: To Be Determined Current Advance Directive: Health Care Power of Rotary Envelope Machine Operator In Chart: No Nautical Instrument Mechanic Attempted to Assist with AD Completion: Yes Action: Education Provided D/C TBD. POC: Continuous Bladder Irrigation. Will follow for d/c planning needs. SIGNATURE: Jessica Escudero RN PATIENT NAME: Cinthya Wilson DATE: September 01, 2020 TIME: 3:00 PM PAGER/CONTACT #: [phone] NoteHNO ID: [id number] Author: Mick Gallardo MD Service: Urology Author Type: Resident Type: Plan of Care Filed: 09/01/2020 7:18 AM Note Text: UROLOGY PLAN OF CARE: Continuous Bladder Irrigation PURPOSE: - To prevent blood clot formation, allow free flow of urine, and maintain indwelling tucker catheter patency. CATHETER BLOCKAGE: - Clot retention [...] withdraw 60cc). - Notify the Urology resident, [id number]. - Re-catheterization should not be attempted by [...] bladder spasm. 4. Solution leaks around the tucker catheter. Assess for bladder spasms. Refer to #1 ? assessing for obstruction. Once obstruction has been ruled out, consider administering antispasmodics (ditropan, belladonna and opium suppositories, levsin, etc). Mick Gallardo, [facility] note Author Narinder Toussaint [facility] February 23, 2022 2:20pm Note Date/Time February 23, 2022 2 :20pm [facility] [address] [place] [address] Nephrology Consult Note Signed Patient: Cinthya Wilson MR#: [id number] : 1945 Acct:[id number] Age/Sex: 76 / F Adm Date: 3 Loc: Room: [address] [place] [address] Type: ADM IN Attending Dr: Jamal Schaefer MD Copies to: MD Lily Garrett II, MD Essam B Elashi, MD~ Providers Consult Date: 02/23/22 Requesting Provider: Jamal Schaefer MD Primary Care Provider: Lily Del Real II, MD HPI Reason for Consult: CKD [...] 12.5 Mg Tablet) 12.5 mg PO BID [facility] Stop: 02/23/23 08:59 Last Admin: 02/23/22 08:25 Dose: 12.5 mg Citalopram Hydrobromide (Citalopram 40 Mg Tablet) 40 mg PO DAILY [facility] Stop: 02/23/23 08:59 Last Admin: 02/23/22 08:25 Dose: 40 mg Docusate Sodium (Docusate 100 Mg Capsule) 100 mg PO BID [facility] Stop: 02/23/23 08:59 Last Admin: 02/23/22 08:25 Dose: 100 mg Furosemide (Furosemide 100 Mg/10 Ml Vial) 80 mg IV-PUSH BID@0800,1600 [facility] Stop: 02/22/23 21:24 Last Admin: 02/23/22 08:25 Dose: 80 mg Heparin Sodium (Porcine) (Heparin 5,000 Unit/Ml Vial) 5,000 unit SUBCUT Q8HR [facility] Stop: 02/22/23 21:59 Last Admin: 02/23/22 13:36 Dose: Not Given Heparin Sodium (Porcine) (Heparin 10,000 Unit/10 Ml Vial) 2,000 unit IV PRN PRN PRN Reason: Dialysis Stop: 02/23/23 10:58 Hydralazine HCl (Hydralazine 50 Mg Tablet) 50 mg PO TID [facility] Stop: 02/22/23 21:59 Last Admin: 02/23/22 13:36 Dose: Not Given Ceftriaxone Sodium (Rocephin) 1 gm in 50 mls @ 100 mls/hr IV Q24H [facility] Sodium Chloride (0.9% Sodium Chloride 1,000 Ml) 1,000 mls @ 0 mls/hr MISCELLANE.Q0M PRN PRN Reason: Dialysis Stop: 02/23/23 10:58 Insulin Aspart (Insulin Aspart 300 Units/3 Ml Insuln.Pen) 0 units SUBCUT TID.WM.HS [facility]; Protocol Stop: 02/22/23 21:59 Last Admin: 02/23/22 13:35 Dose: Not Given Isosorbide Mononitrate (Isosorbide Mononitrate 24hr Er 60 Mg Tab.Er.24h) 60 mg PO QAM [facility] Stop: 02/23/23 08:59 Last Admin: 02/23/22 08:25 Dose: 60 mg Melatonin (Melatonin 5 Mg Tablet) 5 mg PO QHS PRN PRN Reason: Insomnia Stop: 02/22/23 21:16 Nystatin (Nystatin 100,000 Unit/Gram Powder 15 Gm Bottle) 1 applic TOPICAL BID PRN PRN Reason: Skin Irritation Omeprazole (Omeprazole 20 Mg Capsule.Dr) 40 mg PO DAILY [facility] Stop: 02/23/23 08:59 Last Admin: 02/23/22 08:25 Dose: 40 mg Promethazine HCl (Promethazine 25 Mg/Ml Vial) 12.5 mg IV-PUSH Q6H PRN PRN Reason: Nausea And Vomiting Stop: 02/22/23 21:16 Sodium Bicarbonate (Sodium Bicarbonate 650 Mg Tablet) 1,300 mg PO TID [facility] Stop: 02/23/23 08:59 Last Admin: 02/23/22 13:36 [...] Appearance Clear Urine pH 5.0 Ur Specific [place] 1.015 Urine Protein 100 H Urine Glucose [...] Dianna Pedro M.D.02/22/2022 8:01 PM Dictation Location: [place] [address] 02/22/22 18:50 IMPRESSION: ATROPHY AND CHRONIC MICROVASCULAR CHANGES. NO ACUTE INTRACRANIAL ABNORMALITY. Impression dictated by: Dianna Pedro M.D.02/22/2022 8:06 PM Dictation Location: [place] [address] Any impression(s) listed above is documentation that [...] stay. Documented By: Narinder Toussaint MD 02/23/22 1403 Signed By: <Electronically signed by MD Narinder Toussaint> 02/23/22 2073 [facility] Work Phone: Consult note Author Narinder Toussaint [facility] October 30, 2022 2:47pm Note Date/Time October 30, 2022 2:47pm [facility] [address] [place] [address] Nephrology Consult Note Signed Patient: Cinthya Wilson MR#: [id number] : 1945 Acct:[id number] Age/Sex: 77 / F Adm Date: 3 Loc: Room: [address] [place] [address] Type: ADM INOo Attending Dr: Carlton Mtz DO Copies to: MD Narinder Bourgeois II, MD Kristopher L Lindbloom, DO~ Providers Consult Date: 10/30/22 Requesting Provider: Carlton Mtz DO Primary Care Provider: Lily Del Real II, MD HPI Reason for Consult: Management of ESRD and dialysis during hospital stay History of Present Illness: Ms. 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 Patient currently gets dialysis at [place] dialysis unit on MWF schedule. She is [...] negative unless noted below or in HPI [facility] Medical History (Updated 10/30/22 @ 00:13 [...] 3 Ml Ampul.Neb) 1 ml INHALATION QID [facility] Stop: 10/30/23 08:59 Last Admin: 10/30/22 14:02 Dose: 1 ml Aspirin (Aspirin 81 Mg Tablet.) 81 mg PO DAILY YESSENIA Stop: 10/30/23 08:59 Last Admin: 10/30/22 08:47 Dose: 81 mg Atorvastatin Calcium (Atorvastatin 40 Mg Tablet) 40 mg PO QPM [facility] Stop: 10/30/23 20:59 Calcium Acetate (Calcium Acetate 667 Mg Capsule) 667 mg PO TID.WITH.MEALS [facility] Stop: 10/30/23 07:59 Last Admin: 10/30/22 13:00 Dose: Not Given Darbepoetin Theodore (Darbepoetin Theodore In Polysorbat 60 Mcg/Ml Vial) 60 mcg IV-PUSHWe@1015 [facility] Stop: 10/30/23 10:14 Last Admin: 10/30/22 10:16 Dose: 60 mcg Dextrose (Dextrose 50% In Water 25 Gm/50 Ml Syringe) 0 gm IV-PUSH PRN PRN PRN Reason: Hypoglycemia Stop: 10/29/23 23:55 Docusate Sodium (Docusate 100 Mg Capsule) 100 mg PO BID [facility] Stop: 10/30/23 08:59 Last Admin: 10/30/22 08:47 Dose: 100 mg Glucose (Dextrose 40% Gel 15 Gm Tube) 0 gm PO PRN PRN PRN Reason: Hypoglycemia Stop: 10/29/23 23:55 Glucose (Dextrose 40% Gel 15 Gm Tube) 0.6 gm PO PRN PRN PRN Reason: Hypoglycemia Stop: 10/30/23 04:23 Heparin Sodium (Porcine) (Heparin 5,000 Unit/Ml Vial) 5,000 unit SUBCUT Q12HR [facility] Stop: 10/30/23 08:59 Last Admin: 10/30/22 08:47 Dose: 5,000 unit Amiodarone HCl 450 mg/ (Dextrose) 250 mls @ 33.333 mls/hr IV .Q7H30M [facility]; Protocol Stop: 10/31/22 03:59 Last Admin: 10/30/22 13:25 Dose: Not Given Sodium Chloride (0.9% Sodium Chloride 1,000 Ml) 1,000 mls @ 0 mls/hr MISCELLANE.Q0M PRN PRN Reason: Dialysis Stop: 10/30/23 09:03 Last Infusion: 10/30/22 10:17 Dose: Infused Insulin Aspart (Insulin Aspart 300 Units/3 Ml Insuln.Pen) 0 units SUBCUT TID.WM.HS [facility]; Protocol Stop: 10/30/23 07:59 Last Admin: 10/30/22 14:21 Dose: Not Given Isosorbide Mononitrate (Isosorbide Mononitrate 24hr Er 60 Mg Tab.Er.24h) 60 mg PO DAILY [facility] Stop: 10/30/23 08:59 Midodrine (Midodrine 5 Mg [...] 40 Mg Tablet.Dr) 40 mg PO DAILY [facility] Stop: 10/30/23 08:59 Last Admin: 10/30/22 08:47 Dose: 40 mg Sennosides (Sennosides 8.6 Mg Tablet) 1 tab PO BID [facility] Stop: 10/30/23 08:59 Last Admin: 10/30/22 08:47 Dose: 1 tab Sodium Chloride (Sodium Chloride 0.9 % 10 Ml Syringe) 0 ml IV-PUSH PRN PRN PRN Reason: Flush Stop: 10/29/23 20:01 Last Admin: 10/30/22 10:15 Dose: 10 ml Sodium Chloride (Sodium Chloride 0.9 % 10 Ml Syringe) 0 ml IV-PUSH QSHIFT [facility] Stop: 10/30/23 05:59 Last Admin: 10/30/22 13:26 [...] Jossie Díaz M.D.10/30/2022 8:01 AM Dictation Location: [id number] 10/29/22 20:42 IMPRESSION: No acute fracture. Similar degenerative and postoperative change. Impression dictated by: David Archer M.D.10/29/2022 9:30 PM Dictation Location: [facility] Chest X-Ray 10/29/22 20:42 IMPRESSION: Atherosclerotic changes are present in the thoracic aorta. There are small bilateral pleural effusions with hazy airspace opacities showing slight intervalimprovement when compared to the prior exam. Impression dictated by: Jossie Díaz M.D.10/30/2022 8:00 AM Dictation Location: [place] [address] 10/29/22 20:42 IMPRESSION: No acute intracranial findings. Impression dictated by: David Archer M.D.10/29/2022 9:25 PM Dictation Location: [place] [address] Any impression(s) listed above is documentation that [...] volume overload. [facility] [place] [facility] (2) Fall [...] signed by MD Narinder Toussaint> 10/30/22 1447 [facility] Work Phone: Consult note Author Edie Michel [facility] October 30, 2022 4:25pm Note Date/Time October 30, 2022 4:03pm [facility] [address] [place] [address] Cardiology Consult Note Signed Patient: Cinthya Wilson MR#: [id number] : 1945 Acct:[id number] Age/Sex: 77 / F Adm Date: 3 Loc: Room: [address] [place] [address] Type: ADM INOo Attending Dr: Carlton Mtz DO Copies to: MD Carlton Bourgeois II, DO Linda Njoroge, MD~ Cardiology HPI History of Present Illness Consult Date: 10/30/22 Reason for Consult: Nonsustained VT HPI: Ms. Wilson is a 77 year old female with past medical history significant for CADstatus post PCI x1 about 10 years ago in [place], ESRD on HD, hypertension, hyperlipidemia, CHF, COPD [...] she follows up with Dr. Lutz in [place] and was last seen a few weeks ago where her cardiac medications were decreased due to hypotension. She has since been started on midodrine. She reports having an echo in the last year but is unsure or her EF. Review of Systems Review of Systems All other systems reviewed & are negative unless noted below or in HPI [facility] Medical History (Updated 10/30/22 @ 16:17 [...] Lymph # (Auto) 1.0 1.1 (1.00-4.8) x10E3/uL Band[place] # (Auto) 0.9 H 1.1 H (0.0-0.8) [...] ml @ 600 mls/hr IV BOLUS ONE Rx#:[id number] Amiodarone 450 mg In Dextrose 5 60 / 60 % in Water [place] 241 ml @ 1 MG /MIN 33.333 mls/hr IV .Q7H30M YESSENIA Rx#:[id number] Magnesium Sulf 2Gm-*Swfi* 2 gm 50 / 50 In 50 ml @ 25 mls/hr IV ONCE ONE Rx#:[id number] Sodium Chloride 0.9% 1,000 ml 250 / 250 250 ml @ 999 mls/hr IV .Q16M ONE Rx#:[id number] Sodium Chloride 0.9% 1,000 ml 1 500 / 500 ,000 ml @ As Directed MISCELLANE .Q0M PRN Rx#: [id number] Oral 200 / 200 Dialysis Intake 300 [...] post PCIx1 about 10 years ago in [place], ESRD on HD, hypertension, hyperlipidemia, CHF, COPD [...] Code(s): I25.10 - Atherosclerotic heart disease of cheesh-na coronary artery without angina pectoris (3) Systolic [...] <Electronically signed by Edie Michel MD> 10/30/22 8532 [facility] Work Phone: Consult note Author Narinder Toussaint [facility] December 30, 2022 12:46pm Note Date/Time December 30, 2022 12:46pm [facility] [address] [place] [address] Nephrology Consult Note Signed Patient: Cinthya Wilson MR#: [id number] : 1945 Acct:[id number] Age/Sex: 77 / F Adm Date: 3 Loc: Room: [address] [place] [address] Type: ADM IN Attending Dr: Tatiana Loya MD Copies to: MD Lily Duran II, MD Essam B Elashi, MD~ Providers Consult Date: 12/30/22 Requesting Provider: Tatiana Loya MD Primary Care Provider: Lily Del Real II, MD [facility] Reason for Consult: Management of ESRD and dialysis during hospital stay History of Present Illness: Ms. 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 Patient currently gets dialysis at [place] [facility] unit on [facility] schedule. Patient had recent admission on December [...] and no additional complaints, except as documented [facility] Medical History Anemia Anxiety Anxiety and [...] 100 Gm Tube) 4 gm TOPICAL QID [facility] Stop: 12/30/23 08:59 Last Admin: 12/30/22 08:20 Dose: 4 gm Docusate Sodium (Docusate 100 Mg Capsule) 100 mg PO BID YESSENIA Stop: 12/30/23 08:59 Last Admin: 12/30/22 08:20 Dose: 100 mg Ferric Sodium Gluconate Complex (Sodium Ferric Gluconat/Sucrose 62.5 Mg/5 Ml Vial) 125 mg IV-PUSH Mo@0900 [facility] Stop: 12/30/23 08:59 Last Admin: 12/30/22 10:03 Dose: 125 mg Furosemide (Furosemide 20 Mg Tablet) 60 mg PO BID@0800,1700 [facility] Stop: 12/30/23 08:59 Last Admin: 12/30/22 08:20 [...] Units/3 Ml Insuln.Pen) 0 units SUBCUT TID.WM.HS [facility]; Protocol Stop: 12/30/23 07:59 Last Admin: 12/30/22 11:35 Dose: 2 units Midodrine (Midodrine 5 Mg Tablet) 5 mg PO TID.7A.12P.5P PRN PRN Reason: Hypotension Stop: 12/30/23 03:21 Multivitamins (Multivitamin 1 Tab Tablet) 1 tab PO DAILY [facility] Stop: 12/30/23 08:59 Last Admin: 12/30/22 08:20 Dose: 1 tab Oxycodone/Acetaminophen (Oxycodone/Acetaminophen 5-325 Mg Tablet) 1 tab PO [id number] PRN Reason: Pain Pantoprazole Sodium (Pantoprazole 40 Mg Tablet.Dr) 40 mg PO DAILY [facility] Stop: 12/30/23 08:59 Last Admin: 12/30/22 08:20 Dose: 40 mg Pramipexole Dihydrochloride (Pramipexole 0.5 Mg Tablet) 0.5 mg PO QHS [facility] Stop: 12/30/23 21:59 Saliva Substitute (Saliva Stimulant Agents Comb.3 44.3 Ml [employer]) 0 ml MUCOUS MEM PRN PRN PRN Reason: Dry Mouth Stop: 12/30/23 02:58 Sennosides (Sennosides 8.6 Mg Tablet) 2 tab PO QHS [facility] Stop: 12/30/23 21:59 Sodium Chloride (Sodium Chloride 0.9 % 10 Ml Syringe) 0 ml IV-PUSH PRN PRN PRN Reason: Flush Stop: 12/29/23 22:02 Last Admin: 12/30/22 10:03 Dose: 10 ml Sodium Chloride (Sodium Chloride 0.9 % 10 Ml Syringe) 0 ml IV-PUSH QSHIFT [facility] Stop: 12/30/23 05:59 Last Admin: 12/30/22 06:29 [...] STUDY. Impression dictated by: Quintin Matamoros Jr., D.OLucia12/30/2022 9:27 AM Dictation Location: [place] [address] Abdomen X-Ray 12/30/22 02:49 IMPRESSION: MODERATE STOOL BURDEN IS SEEN INVOLVING THE LEFT COLON WITH GASEOUS DISTENTION OF PRESUMED RIGHT-SIDED COLONIC LOOPS. FINDINGS MAY RELATE TO CONSTIPATION. IF UNDERLYING OBSTRUCTION IS OF CLINICAL CONCERN, FURTHER EVALUATION WITH CT IS RECOMMENDED. Impression dictated by: Quintin Matamoros Jr., D.O.12/30/2022 9:28 AM Dictation Location: [place] [address] Liver Ultrasound 12/30/22 03:00 IMPRESSION: NO ACUTE PROCESS. . Impression dictated by: Quintin Matamoros Jr., D.O.12/30/2022 10:31 AM Dictation Location: [place] [address] Any impression(s) listed above is documentation that [...] signed by MD Narinder Toussaint> 12/30/22 1246 [facility] Work Phone: Consult note Author Edie Michel [facility] December 30, 2022 8:49pm Note Date/Time December 30, 2022 8:37pm [facility] [address] [place] [address] Cardiology Consult Note Signed Patient: Cinthya Wilson MR#: [id number] : 1945 Acct:[id number] Age/Sex: 77 / F Adm Date: 3 Loc: Room: [address] [place] [address] Type: ADM IN Attending Dr: Tatiana Loya MD Copies to: MD Lily Duran II, MD Edie Michel MD~ Cardiology HPI History of Present Illness Consult Date: 12/30/22 Reason for Consult: Bradycardia and history of VT HPI: Ms. Wilson is a 77 year old female with PMH significant for CAD status post PCI x1 about 10 years ago in [place], ESRD on HD, hypertension, hyperlipidemia, CHF, COPD [...] negative unless noted below or in HPI [facility] Medical History Anemia Anxiety Anxiety and [...] Lymph # (Auto) 1.2 1.1 (1.00-4.8) x10E3/uL [place] # (Auto) 1.3 H 1.2 H (0.0-0.8) [...] @ As Directed MISCELLANE .Q0M PRN Rx#: [id number] Oral 360 / 360 Output: Urine 0 [...] PCI x1 about 10 years ago in [place], ESRD on HD, hypertension, hyperlipidemia, CHF, COPD [...] <Electronically signed by Edie Michel MD> 12/30/222048 [facility] Work Phone: Consult note Author Seth Weiss [facility] July 01, 2023 8:19am Note Date/Time July 01, 2023 8:19a m [facility] [address] [place] [address] Neurosurgery Consult Note Signed Patient: Cinthya Wilson MR#: [id number] : 1945 Acct:[id number] Age/Sex: 78 / F Adm Date: 4 Loc: Room: [address] [place] [address] Type: ADM INOo Attending Dr: Tatiana Loya MD Copies to: MD Seth Duran MD Daniel Berry II, MD~ HPI History of Present Illness Consult Date: 07/01/2023 Requesting Provider: CC: Tatiana Loay MD Reason for Consult: C2 fracture and generalized weakness History of Present Illness: 78-year-old white female past medical history of hypertension, hyperlipidemia, diabetes type 2, end-stage renal disease on hemodialysis, chronic COPD, sleep apnea GERD, anxiety, sleep apnea, and chronic neck and back pain who presented to emergency room with generalized weakness, generalized pain and fall. She hasbeen complaining of neck pain for about 6 months and needing received an injection by neurology. Most recently she has had severe pain for the last 3 days. She has episode of fall 3 days ago. She has been complaining of blurred vision for no double vision no dizziness. No slurred speech. No headache. no upper extremity or lower extremity weakness. No upper extremity or lower extremity numbness or tingling. She denies having dizziness. No syncopal episode. She denies any chest pain or shortness of breath. She denies having abdominal pain. No diarrhea. She denies having dysuria, hematuria, frequency. No hematemesis, melena or hematochezia. CT brain no acute intracranial bleed. Review of Systems Review of Systems All other systems reviewed & are negative unless noted below or in HPI [facility] Medical History Diabetes mellitus with insulin therapy Chronic hypoxemic respiratory failure ESRD (end stage renal disease) CAD (coronary artery disease) COPD (chronic obstructive pulmonary disease) Fall Carotid stenosis, bilateral End-stage renal disease (ESRD) Heart failure Missed dialysis Chronic combined systolic and diastolic CHF (congestive heart failure) Secondary hyperparathyroidism Anemia of renal disease Benign hypertension with end-stage renal disease Type 2 diabetes mellitus with diabetic chronic kidney disease Hyponatremia AV fistula left Pneumonia Polymyalgia GERD (gastroesophageal reflux disease) Anxiety and depression Skin cancer mohs procedure for removal Neuropathy right thigh and feet Sleep apnea Irregular heart rhythm prior to stent placement per pt report Neck pain with history of cervical spinal surgery Cataract had bilateral PHACO Chronic back pain Arthritis Cervical spinal stenosis Anxiety Hyperlipidemia HTN (hypertension) [...] Family History Father Heart disease Cancer Mother Diabetes Cancer Brother Cancer Legacy FamHx Relation: Brother(s); Legacy FamHx Problem: Diagnosed with Cancer Social History Smoking Status: Never smoker Substance Use Type: None Social History Comments: adult son Meds Medications and Allergies Allergies lisinopril Allergy (Unknown, Verified 06/30/23 12:32) Cough gabapentin Allergy (Verified 06/30/23 12:32) Swelling of Lip/Tongue/Throat Home Medications atorvastatin 40 mg tablet 40 mg PO QPM 11/19/16 [History Confirmed 06/30/23] multivitamin 1 tab PO DAILY 09/07/19 [History Confirmed 06/30/23] aspirin 81 mg tablet,delayed release 81 mg PO DAILY 11/25/19 [History Confirmed 06/30/23] cholecalciferol (vitamin D3) 25 mcg (1,000 unit) tablet (Vitamin D3) 25 mcg PO DAILY 11/25/19 [History Confirmed 06/30/23] citalopram 40 mg tablet 20 mg PO DAILY 11/25/19 [History Confirmed 06/30/23] albuterol sulfate 0.63 mg/3 mL solution for nebulization 0.63 mg inhalation QID PRN SOB 06/26/21 [History Confirmed 06/30/23] docusate sodium 100 mg capsule 100 mg PO BID #60 caps 11/20/21 [Rx Confirmed 06/30/23] pen needle, diabetic 32 gauge x 5/32 (BD Ultra-Fine Lexis Pen Needle) #100 ea 11/20/21 [Rx Confirmed 06/30/23] calcium acetate(phosphat bind) 667 mg capsule 667 mg PO TID.WITH.MEALS 60 days #240 caps 02/26/22 [Rx Confirmed 06/30/23] pantoprazole 40 mg tablet,delayed release 40 mg PO DAILY 05/17/22 [History Confirmed 06/30/23] diclofenac sodium 1 % topical gel (Voltaren Arthritis Pain) 4 g topical QID #0 grams 10/31/22 [Rx Confirmed 06/30/23] furosemide 20 mg tablet 60 mg (3 x 20 mg) PO BID 30 days #180 tabs 10/31/22 [Rx Confirmed 06/30/23] fluticasone fur. 100 mcg-umeclid 62.5 mcg-vilant 25 mcg inhalat.powder (Trelegy Ellipta) 2 ea inhalation DAILY 12/06/22 [History Confirmed 06/30/23] pramipexole 0.5 mg tablet 0.5 mg PO HS 12/06/22 [History Confirmed 06/30/23] insulin lispro 100 unit/mL subcutaneous pen (Humalog KwikPen (U-100) Insulin) 1 sliding scale dose subcut ACHS 12/29/22 [History Confirmed 06/30/23] ondansetron 4 mg disintegrating tablet 4 mg PO Q6H PRN Nausea 12/29/22 [History Confirmed 06/30/23] acetaminophen 650 mg tablet,extended release (Arthritis Pain Reliever) 650 mg POQ12H PRN pain 03/05/23 [History Confirmed 06/30/23] buspirone 10 mg tablet 10 mg PO BID 03/05/23 [History Confirmed 06/30/23] metoprolol tartrate 25 mg tablet 12.5 mg PO DAILY 03/05/23 [History Confirmed 06/30/23] mexiletine 200 mg capsule 200 mg PO Q8HR 30 days #90 caps 03/07/23 [Rx Confirmed 06/30/23] pregabalin 50 mg capsule (Lyrica) 50 mg PO BID 04/01/23 [History Confirmed 06/30/23] oxycodone-acetaminophen 5 mg-325 mg tablet (Percocet) 1 - 2 tab PO Q6HR PRN pain3 days #15 tabs 04/16/23 [Rx Confirmed 06/30/23] midodrine 5 mg tablet 5 mg PO TID 06/12/23 [History Confirmed 06/30/23] lidocaine 4 % topical patch (Lidocaine Pain Relief) 1 patch topical BID 06/30/23[History Confirmed 06/30/23] loratadine 10 mg tablet (Allerclear) 5 mg PO DAILY 06/30/23 [History Confirmed 06/30/23] lubiprostone 8 mcg capsule (Amitiza) 8 mcg PO BID 06/30/23 [History Confirmed 06/30/23] midodrine 5 mg tablet 5 mg PO DAILY PRN low bp 06/30/23 [History Confirmed 06/30/23] polyethylene glycol 3350 17 gram/dose oral powder (ClearLax) 17 g PO BID 06/30/23 [History Confirmed 06/30/23] tizanidine 4 mg capsule (Zanaflex) 4 mg PO QHS 06/30/23 [History Confirmed 06/30/23] Exam Physical Exam Vital Signs: Temp Pulse Resp BP Pulse Ox O2 Del Method O2 Flow Rate 98.0 F 62 18 94/60 L 99 Nasal Cannula 2 07/01/23 05:56 07/01/23 05:56 07/01/23 05:56 07/01/23 05:56 07/01/23 05:56 07/01/23 05:56 07/01/23 05:56 Narrative: Patient alert and oriented by 3 Neck supple Affect appropriate Cranial nerves II through XII intact and symmetrical Deltoid bicep tricep and spotlight operator 5/5 bilateral, unable to evaluate deltoids Upper extremity sensory normal to light touch throughout Iliopsoas hamstring quadriceps anterior tibial gastrocnemius 5/5 bilaterally Lower extremity sensory normal light touch throughout Upper extremity range of motion limited to not even horizontal motion of the arms because of shoulder arthropathy bilateral. Hands are severely arthritic painful to make them squeezing object with the painbeing in the joints. Results - Neurosurgery Lab Results Labs: Laboratory Results - Last 48 hrs. 07/01/23 06:36: POC Glucose 254 06/30/23 21:22: POC Glucose 131 06/30/23 18:26: Troponin I High Sens 35.0 H 06/30/23 13:04: Corrected WBC 9.4, Uncorrected WBC Count 9.4, RBC 4.23, Hgb 12.2, Hct 37.4, MCV 88.3, MCH 28.8, MCHC 32.6, RDW 18.3 H, Plt Count 143 L, MPV 8.5, Neut % (Auto) 82.7, Lymph % (Auto) 7.5, Bandera % (Auto) 9.2, Eos % (Auto) 0.3, Baso % (Auto) 0.3, Nucleat RBC Rel Count 0.0, Neut # (Auto) 7.7, Lymph # (Auto) 0.7 L, Bandera # (Auto) 0.9 H, Eos # (Auto) 0.0, Baso # (Auto) 0.0, MonocyteDist Width 25.76 H, ESR 102 H, PT 11.4, INR 1.0, APTT 33.6, PHA Creatinine Clear15.71, Sodium 133 L, Potassium 3.4 L, Chloride 90 L, Carbon Dioxide 26.5, Anion Gap 19.9 H, BUN 19, Creatinine 2.63 H, Est GFR (CKD-EPI) 18.296, Glucose 130 H, Calcium 9.4, Total Creatine Kinase 108, Troponin I High Sens 43.7 H, C-Reactive Prot, Quant 21.7 H, B-Natriuretic Peptide 794.0 H, Free T4 0.91, TSH 3rd Generation 2.[address] Scan - head: report reviewed and image reviewed CT scan - cervical: report reviewed and image reviewed CT Scan - thorax: report reviewed and image reviewed CT Scan - lumbar: report reviewed and image reviewed Additional studies: CTA neck 05/27/2023 images and report Assessment/Plan (1) Closed odontoid fracture: Qualifiers: Encounter type: initial encounter Qualified Code(s): S12.100A - Unspecified displaced fracture of second cervical vertebra, initial encounter for closed fracture (2) Primary hypertension: Plan Independently reviewed the CT of the head, the CT of the cervical spine, the previous CT of the cervical spine done in April 2023, and the CT of the thoracicspine. This patient has a new fracture of the odontoid type II. I will most likely order a flexion and extension view of the neck. She needs cardiac clearance. This patient also has multiple comorbidities. I discussed options with this patient to include simply wearing a collar, halo, and surgical intervention. I would like to see an MRI of the cervical spine. A flexion and extension view of the cervical spine. And I will make a decision over the next day. Documented By: Seth Weiss MD 07/01/23 0727 Signed By: <Electronically signed by MD Seth Weiss> 07/01/23 0819 [facility] Work Phone: Consult note Author Wood Zavala [facility] July 01, 2023 12:30pm Note Date/Time July 01, 2023 12:24 pm [facility] [address] [place] [address] Nephrology Consult Note Signed Patient: Cinthya Wilson MR#: [id number] : 1945 Acct:[id number] Age/Sex: 78 / F Adm Date: 4 Loc: Room: [address] [place] [address] Type: ADM INOo Attending Dr: Tatiana Loya MD Copies to: MD Tatiana Gaines MD Daniel Berry II, MD~ Providers Consult Date: 07/01/23 Requesting Provider: Tatiana Loya MD Primary Care Provider: Lily Del Real II, MD HPI Reason for Consult: ESRD management History of Present Illness: This is a 78-year-old female well-known to to me from outpatient [facility] was presented to the emergency room after her dialysis due to the neck pain. 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 Her other comorbidities are CAD s/p PCI, COPD, chronic hypoxic diastolic failure, cardiac arrhythmia s/p AICD and dyslipidemia. Reported as she fell 3 days ago and was having excruciating pain. In the emergency room she had a CT head and neck which showed no acute intracranial bleed or stroke, stable carotid plaque and stenosis and occlusion of the right vertebral artery, new fracture at the base of the odontoid. Patient was admitted for further workup and neurosurgery was consulted. Nephrology is consulted for ESRD management during the hospital stay. Patient was seen and examined at the bedside reported that she is having a neck pain currently have acervical collar. Review of Systems Review of Systems All other systems reviewed & are negative unless noted below or in HPI Review of systems: Cardiovascular: denies any chest pain, palpitation Pulmonary: denies any cough, hemoptysis Gastrointestinal: denies any nausea, vomiting, diarrhea Neurological :denies any headache, numbness, weakness Endocrine: denies any polyuria, polydipsia Dermatological: denies any itching or rash [facility] Medical History (Updated 07/01/23 @ 12:20 by Wood Zavala MD) Secondary hyperparathyroidism Anemia of renal disease Type 2 diabetes mellitus with diabetic chronic kidney disease Diabetes mellitus with insulin therapy Chronic hypoxemic respiratory failure ESRD (end stage renal disease) CAD (coronary artery disease) COPD (chronic obstructive pulmonary disease) Fall Carotid stenosis, bilateral End-stage renal disease (ESRD) Heart failure Missed dialysis Chronic combined systolic and diastolic CHF (congestive heart failure) Hyponatremia Pneumonia Polymyalgia Skin cancer mohs procedure for removal Neuropathy right thigh and feet Sleep apnea Irregular heart rhythm prior to stent placement per pt report Neck pain with history of cervical spinal surgery Cataract had bilateral PHACO Chronic back pain Arthritis Cervical spinal stenosis Anxiety Hyperlipidemia HTN (hypertension) [...] Family History Father Heart disease Cancer Mother Diabetes Cancer Brother Cancer Legacy FamHx Relation: Brother(s); Legacy FamHx Problem: Diagnosed with Cancer Social History Smoking Status: Never smoker Substance Use Type: None Social History Comments: adult son Meds Medications & Allergies Allergies lisinopril Allergy (Unknown, Verified 06/30/23 12:32) Cough gabapentin Allergy (Verified 06/30/23 12:32) Swelling of Lip/Tongue/Throat Home Medications atorvastatin 40 mg tablet 40 mg PO QPM 11/19/16 [History Confirmed 06/30/23] multivitamin 1 tab PO DAILY 09/07/19 [History Confirmed 06/30/23] aspirin 81 mg tablet,delayed release 81 mg PO DAILY 11/25/19 [History Confirmed 06/30/23] cholecalciferol (vitamin D3) 25 mcg (1,000 unit) tablet (Vitamin D3) 25 mcg PO DAILY 11/25/19 [History Confirmed 06/30/23] citalopram 40 mg tablet 20 mg PO DAILY 11/25/19 [History Confirmed 06/30/23] albuterol sulfate 0.63 mg/3 mL solution for nebulization 0.63 mg inhalation QID PRN SOB 06/26/21 [History Confirmed 06/30/23] docusate sodium 100 mg capsule 100 mg PO BID #60 caps 11/20/21 [Rx Confirmed 06/30/23] pen needle, diabetic 32 gauge x (BD Ultra-Fine Lexis Pen Needle) #100 ea 11/20/21 [Rx Confirmed 06/30/23] calcium acetate(phosphat bind) 667 mg capsule 667 mg PO TID.WITH.MEALS 60 days #240 caps 02/26/22 [Rx Confirmed 06/30/23] pantoprazole 40 mg tablet,delayed release 40 mg PO DAILY 05/17/22 [History Confirmed 06/30/23] diclofenac sodium 1 % topical gel (Voltaren Arthritis Pain) 4 g topical QID #0 grams 10/31/22 [Rx Confirmed 06/30/23] furosemide 20 mg tablet 60 mg (3 x 20 mg) PO BID 30 days #180 tabs 10/31/22 [Rx Confirmed 06/30/23] fluticasone fur. 100 mcg-umeclid 62.5 mcg-vilant 25 mcg inhalat.powder (Trelegy Ellipta) 2 ea inhalation DAILY 12/06/22 [History Confirmed 06/30/23] pramipexole 0.5 mg tablet 0.5 mg PO HS 12/06/22 [History Confirmed 06/30/23] insulin lispro 100 unit/mL subcutaneous pen (Humalog KwikPen (U-100) Insulin) 1 sliding scale dose subcut ACHS 12/29/22 [History Confirmed 06/30/23] ondansetron 4 mg disintegrating tablet 4 mg PO Q6H PRN Nausea 12/29/22 [History Confirmed 06/30/23] acetaminophen 650 mg tablet,extended release (Arthritis Pain Reliever) 650 mg POQ12H PRN pain 03/05/23 [History Confirmed 06/30/23] buspirone 10 mg tablet 10 mg PO BID 03/05/23 [History Confirmed 06/30/23] metoprolol tartrate 25 mg tablet 12.5 mg PO DAILY 03/05/23 [History Confirmed 06/30/23] mexiletine 200 mg capsule 200 mg PO Q8HR 30 days #90 caps 03/07/23 [Rx Confirmed 06/30/23] pregabalin 50 mg capsule (Lyrica) 50 mg PO BID 04/01/23 [History Confirmed 06/30/23] oxycodone-acetaminophen 5 mg-325 mg tablet (Percocet) 1 - 2 tab PO Q6HR PRN pain3 days #15 tabs 04/16/23 [Rx Confirmed 06/30/23] midodrine 5 mg tablet 5 mg PO TID 06/12/23 [History Confirmed 06/30/23] lidocaine 4 % topical patch (Lidocaine Pain Relief) 1 patch topical BID 06/30/23[History Confirmed 06/30/23] loratadine 10 mg tablet (Allerclear) 5 mg PO DAILY 06/30/23 [History Confirmed 06/30/23] lubiprostone 8 mcg capsule (Amitiza) 8 mcg PO BID 06/30/23 [History Confirmed 06/30/23] midodrine 5 mg tablet 5 mg PO DAILY PRN low bp 06/30/23 [History Confirmed 06/30/23] polyethylene glycol 3350 17 gram/dose oral powder (ClearLax) 17 g PO BID 06/30/23 [History Confirmed 06/30/23] tizanidine 4 mg capsule (Zanaflex) 4 mg PO QHS 06/30/23 [History Confirmed 06/30/23] Active Medications: Active Medications Acetaminophen (Acetaminophen 325 Mg Tablet) 650 mg PO Q6HR PRN PRN Reason: Pain Scale 1 - 3 or fever Stop: 06/29/24 18:01 Aspirin (Aspirin 81 Mg Tablet.) 81 mg PO DAILY YESSENIA Stop: 06/30/24 08:59 Last Admin: 07/01/23 10:55 Dose: 81 mg Atorvastatin Calcium (Atorvastatin 40 Mg Tablet) 40 mg PO QPM YESSENIA Stop: 06/29/24 20:59 Last Admin: 06/30/23 21:45 Dose: 40 mg Bisacodyl (Bisacodyl 5 Mg Tablet.) 10 mg PO DAILY PRN PRN Reason: Constipation Stop: 06/29/24 18:01 Budesonide/Formoterol Fumarate (Budesonide/Formoterol 80-4.5 Mcg 60 Puff/6.9 Gm Hfa.Aer.Ad) 2 puff INHALATION BID YESSENIA Stop: 06/29/24 20:59 Last Admin: 07/01/23 08:14 Dose: 2 puff Buspirone HCl (Buspirone 10 Mg Tablet) 10 mg PO BID YESSENIA Stop: 06/29/24 20:59 Last Admin: 07/01/23 10:49 Dose: 10 mg Calcium Acetate (Calcium Acetate 667 Mg Capsule) 667 mg PO TID.WITH.MEALS YESSENIA Stop: 06/30/24 07:59 Last Admin: 07/01/23 08:45 Dose: 667 mg Citalopram Hydrobromide (Citalopram 20 Mg Tablet) 20 mg PO DAILY YESSENIA Stop: 06/30/24 08:59 Last Admin: 07/01/23 10:49 Dose: 20 mg Dextrose (Dextrose 50% In Water 25 Gm/50 Ml Syringe) 0 gm IV-PUSH PRN PRN PRN Reason: Hypoglycemia Stop: 06/29/24 18:06 Diclofenac Sodium (Diclofenac Sodium 1% Gel 100 Gm Tube) 4 gm TOPICAL QID YESSENIA Stop: 06/29/24 17:59 Last Admin: 07/01/23 10:51 Dose: 4 gm Docusate Sodium (Docusate 100 Mg Capsule) 100 mg PO BID YESSENIA Stop: 06/29/24 20:59 Last Admin: 07/01/23 10:49 Dose: 100 mg Glucose (Dextrose 40% Gel 15 Gm Tube) 0 gm PO PRN PRN PRN Reason: Hypoglycemia Stop: 06/29/24 18:06 Heparin Sodium (Porcine) (Heparin 5,000 Unit/Ml Vial) 5,000 unit SUBCUT Q8HR YESSENIA Stop: 06/29/24 21:59 Last Admin: 07/01/23 06:01 Dose: 5,000 unit Insulin Aspart (Insulin Aspart 300 Units/3 Ml Insuln.Pen) 0 units SUBCUT TID.WM.[facility]; Protocol Stop: 06/29/24 21:59 Last Admin: 07/01/23 08:43 Dose: 5 units Ipratropium [place] (Ipratropium [place] 0.5 Mg/2.5 Ml Vial.Neb) 2 mg INHALATION QID.RESP YESSENIA Stop: 06/29/24 19:59 Last Admin: 07/01/23 12:09 Dose: 2 mg Lidocaine (Lidocaine 4% Adh..Patch) 1 patch TOPICAL BID [facility] Stop: 06/29/24 20:59 Last Admin: 07/01/23 11:07 Dose: Not Given Loratadine (Loratadine 10 Mg Tablet) 5 mg PO DAILY [facility] Stop: 06/30/24 08:59 Last Admin: 07/01/23 10:50 Dose: 5 mg Lubiprostone (Lubiprostone 8 Mcg Capsule) 8 mcg PO BID [facility] Stop: 06/29/24 20:59 Last Admin: 07/01/23 10:49 Dose: 8 mcg Melatonin (Melatonin 5 Mg Tablet) 5 mg PO QHS PRN PRN Reason: Insomnia Stop: 06/29/24 18:01 Metoprolol Tartrate (Metoprolol Tartrate 12.5 Mg Tablet) 12.5 mg PO DAILY [facility] Stop: 06/30/24 08:59 Last Admin: 07/01/23 10:50 Dose: Not Given Mexiletine HCl (Mexiletine 200 Mg Capsule) 200 mg PO Q8HR [facility] Stop: 06/29/24 21:59 Last Admin: 07/01/23 06:01 Dose: 200 mg Midodrine (Midodrine 5 Mg Tablet) 5 mg PO DAILY PRN PRN Reason: low bp Stop: 06/29/24 17:22 Midodrine (Midodrine 5 Mg Tablet) 5 mg PO TID.7A.12P.5P [facility] Stop: 06/30/24 06:59 Last Admin: 07/01/23 06:01 Dose: 5 mg Multivitamins (Multivitamin 1 Tab Tablet) 1 tab PO DAILY YESSENIA Stop: 06/30/24 08:59 Last Admin: 07/01/23 10:49 Dose: 1 tab Non-Formulary Medication (Albuterol Sulfate) 0.63 mg INHALATION QID PRN PRN Reason: Shortness Of Breath Stop: 06/29/24 17:22 Ondansetron HCl (Ondansetron Odt 4 Mg Tab.Rapdis) 4 mg PO Q6H PRN PRN Reason: Nausea Stop: 06/29/24 17:22 Ondansetron HCl (Ondansetron 4 Mg/2 Ml Vial) 4 mg IV-PUSH Q8H PRN PRN Reason: Nausea And Vomiting Stop: 06/29/24 18:01 Oxycodone/Acetaminophen (Oxycodone/Acetaminophen 5-325 Mg Tablet) 1 tab PO Q4H PRN PRN Reason: Pain Scale 4 - 7 Last Admin: 07/01/23 10:49 Dose: 1 tab Oxycodone/Acetaminophen (Oxycodone/Acetaminophen 5-325 Mg Tablet) 2 tab PO [id number] PRN Reason: pain Last Admin: 07/01/23 00:20 Dose: 2 tab Pantoprazole Sodium (Pantoprazole 40 Mg Tablet.Dr) 40 mg PO DAILY YESSENIA Stop: 06/30/24 08:59 Last Admin: 07/01/23 10:50 Dose: 40 mg Pramipexole Dihydrochloride (Pramipexole 0.5 Mg Tablet) 0.5 mg PO HS YESSENIA Stop: 06/29/24 21:59 Last Admin: 06/30/23 21:44 Dose: 0.5 mg Pregabalin (Pregabalin 50 Mg Capsule) 50 mg PO BID YESSEINA Stop: 12/27/23 20:59 Last Admin: 07/01/23 10:49 Dose: 50 mg Sodium Chloride (Sodium Chloride 0.9 % 10 Ml Syringe) 0 ml IV-PUSH PRN PRN PRN Reason: Flush Stop: 06/29/24 12:34 Last Admin: 06/30/23 21:43 Dose: 10 ml Tizanidine HCl (Tizanidine 4 Mg Tablet) 4 mg PO QHS YESSENIA Stop: 06/29/24 21:59 Last Admin: 06/30/23 21:44 Dose: 4 mg Vitamin D (Cholecalciferol 25 Mcg (1,000 Units) Tablet) 25 mcg PO DAILY YESSENIA Stop: 06/30/24 08:59 Last Admin: 07/01/23 10:49 Dose: 25 mcg Exam Physical Exam Vital Signs: Temp Pulse Resp BP Pulse Ox O2 Del Method O2 Flow Rate 97.7 F 62 16 86/40 L 98 Room Air 2.5 07/01/23 08:40 07/01/23 08:40 07/01/23 08:40 07/01/23 08:40 07/01/23 08:40 07/01/23 08:40 07/01/23 08:16 Narrative: General: Appears comfortable and not in distress Heart: S1-S2, no rub Lung: Bilateral air entry, no wheezing or crackles Abdomen: Soft, positive bowel sounds Extremities: No edema, no cyanosis Head: Atraumatic, normocephalic Ear: No gross hearing Deficit or external ear redness Eyes: No pallor or redness Neck: No JVD or visible mass Skin: No rashes , warm to touch [employer]ORT [employer]NER: Awake,Alert, following simple command Musculoskeletal: No swelling or limitation of movement of the large joints Psychiatric: Cooperative, normal mood and affect Results - Nephrology Labs 06/30/23 13:04 07/01/23 09:13 Labs: 06/30/23 07/01/23 13:04 09:13 BUN 19 35 H Creatinine 2.63 H 4.07 H D Phosphorus 4.7 H Albumin 3.1 L Radiology Impressions Impressions - last 24 hours: Impressions Chest X-Ray 06/30/23 12:49 IMPRESSION: PERSISTENT RIGHT PLEURAL-PARENCHYMAL CHANGE. AP PELVIS: COMPARISON: 12/30/2022 There is osteopenia. No acute fractures are identified. No dislocation at the hips is seen. The hip joint spaces are symmetric. There is some degenerative change at the hips, SI joints and imaged lumbar spine were dextroscoliosis is also noted. The SI joints are intact. There are no soft tissue abnormalities. Atherosclerotic plaque is visualized. IMPRESSION: OSTEOPENIA AND DEGENERATIVE CHANGES. NO ACUTE BONY INJURY WITHIN THE LIMITS OF THIS SINGLE VIEW. RIGHT FOOT - 3 views COMPARISON: None AP, lateral and oblique views were obtained. A fracture at the base of the fifth metatarsal is possible although not definitely acute. Clinical correlation is recommended. No other suspected acute fractures or dislocation are seen. The cortex at the lateral tuft and base of the distal phalanx of the first toe slightly indistinct and this might relate to the osteopenia however given the history, correlation is recommended to assure there is no possibility of osteomyelitis. Minor spurring is seen at the dorsum of the tarsals. Tiny calcaneal spurs are noted. There is no prominent soft tissue swelling. There is atherosclerotic disease. IMPRESSION: POSSIBLE OLD FRACTURE AT THE BASE OF FIFTH METATARSAL. FOCAL CLINICAL CORRELATION IS SUGGESTED. SUBTLE BONY CHANGES AT THE DISTAL PHALANX OF THE FIRST TOE. OSTEOMYELITIS IS DIFFICULT TO EXCLUDE, PARTICULARLY GIVEN THE LACK OF PRIORS FOR CORRELATION. CLINICAL FOLLOW-UP IS RECOMMENDED. Impression dictated by: Dianna Pedro M.D.06/30/2023 4:20 PM Dictation Location: [place] [address] 06/30/23 12:49 IMPRESSION: ATROPHY AND CHRONIC MICROVASCULAR CHANGES. NO ACUTE INTRACRANIAL ABNORMALITY. Impression dictated by: Dianna Pedro M.D.06/30/2023 3:37 PM Dictation Location: [place] [address] Neck CTA 06/30/23 12:49 IMPRESSION: STABLE CAROTID PLAQUE AND STENOSIS. SEVERE STENOSIS AND/OR OCCLUSION OF THE RIGHT VERTEBRAL ARTERY, UNCHANGED. EXTENSIVE POSTOPERATIVE AND DEGENERATIVE CHANGES AT THE CERVICAL SPINE WHERE A NEW FRACTURE AT THE BASE OF THE ODONTOID IS SEEN. Impression dictated by: Dianna Pedro M.D.06/30/2023 3:54 PM Dictation Location: [place] [address] 06/30/23 12:49 IMPRESSION: OSTEOPENIA, REVERSE S-SHAPED SCOLIOTIC CURVATURE AND DISCOVERTEBRAL DEGENERATIVECHANGES MOST NOTABLE IN THE LUMBAR REGION. NO OBVIOUS ACUTE THORACIC OR LUMBAR COMPRESSION FRACTURES. INCIDENTAL FINDINGS INCLUDING A PERSISTENT RIGHT PLEURAL EFFUSION WITH ADJACENT LOWER LOBE CONSOLIDATION. Impression dictated by: Dianna Pedro M.D.06/30/2023 4:08 PM Dictation Location: [place] [address] Any impression(s) listed above is documentation that was entered by the reading physician into a diagnostic report(s) for Cinthya Wilson. I have reviewed the report(s) and am incorporating any findings in the treatment plan of this patient where applicable. A&P - Nephrology Assessment/Plan (1) Odontoid fracture: Assessment/Problem Details: Patient presents after a fall and was found to have ordered an fracture. Neurosurgery has been consulted and following the patient. (2) ESRD (end stage renal disease): Assessment/Problem Details: She has a ESRD due to the hypertensive nephrosclerosis and diabetic nephropathy. She currently goes to the [facility] dialysis unit 3 times a week on MWF schedule. (3) Type 2 diabetes mellitus with diabetic chronic kidney disease: Assessment/Problem Details: She has insulin-dependent type 2 diabetes mellitus. (4) Secondary hyperparathyroidism: Assessment/Problem Details: She has a secondary hyperparathyroidism due to the ESRD and hyperphosphatemia. She currently takes calcium acetate at home. 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 She takes midodrine for intradialytic hypotension. Plan * No need for dialysis today. Next dialysis will be tomorrow as per schedule. * Continue DM management as per the primary hospitalist team. * Continue midodrine for intradialytic hypotension. * Continue management of the odontoid fracture as per the neurosurgery. * Continue home dose of the calcium acetate. * Thanks for consult. Will continue to follow with you. Please feel free to call us with any question. Documented By: Wood Zavala MD 07/01/23 1211 Signed By: <Electronically signed by Wood Zavala MD> 07/01/23 1230 [facility] Work Phone: Consult note Author Edie Michel [facility] July 01, 2023 3:59pm Note Date/Time July 01, 2023 2:03p [facility] [address] [place] [address] Cardiology Consult Note Signed Patient: Cinthya Wilson MR#: [id number] : 1945 Acct:[id number] Age/Sex: 78 / F Adm Date: 4 Loc: Room: [address] [place] [address] Type: ADM IN Attending Dr: Tatiana Loya MD Copies to: MD Lily Duran II, MD Linda Njoroge, MD~ Cardiology HPI History of Present Illness Consult Date: 07/01/23 Reason for Consult: Pre-op risk stratification HPI: Ms. Wilson is a 78 year old female with past medical history significant for CADstatus post remote PCI, recurrent VT s/p dual chamber ICD, ESRD on HD, hypertension, hyperlipidemia, COPD on 3 L nasal cannula. She presented to [facility] on 06/30/2023 with generalized weakness and neck/back pain after sustaining a mechanical fall 3 days prior. CTA neck was significant for new fracture at the base of the odontoid. Neurosurgery was consulted and she is undergoing evaluation for potential surgery. Cardiology wasconsulted for pre-op risk stratification. She denies chest pain, dyspnea, palpitations, BLE edema or weight gain. She has chronic orthostatic hypotension and is currently on Midodrine. She follows up regularly with her primary clinical laboratory aide Dr. Lutz and also follows up with Dr. Rigo KINGSTON. Her CAD has been stable. EKG on admission showed atrial paced rhythm. ICD interrogation showed no atrial or ventricular arrhythmias. Underlying rhythm is sinus bradycardia in the mid 50s. A-paced 48%, V paced 22% 12/14/2022: EF 50-55%. Mild concentric LVH, mild to moderate valvular aortic stenosis, diastolic dysfunction. [facility] Medical History (Updated 07/01/23 @ 12:20 by Wood Zavala MD) Secondary hyperparathyroidism Anemia of renal disease Type 2 diabetes mellitus with diabetic chronic kidney disease Diabetes mellitus with insulin therapy Chronic hypoxemic respiratory failure ESRD (end stage renal disease) CAD (coronary artery disease) COPD (chronic obstructive pulmonary disease) Fall Carotid stenosis, bilateral End-stage renal disease (ESRD) Heart failure Missed dialysis Chronic combined systolic and diastolic CHF (congestive heart failure) Hyponatremia Pneumonia Polymyalgia Skin cancer mohs procedure for removal Neuropathy right thigh and feet Sleep apnea Irregular heart rhythm prior to stent placement per pt report Neck pain with history of cervical spinal surgery Cataract had bilateral PHACO Chronic back pain Arthritis Cervical spinal stenosis Anxiety Hyperlipidemia HTN (hypertension) [...] Family History Father Heart disease Cancer Mother Diabetes Cancer Brother Cancer Legacy FamHx Relation: Brother(s); Legacy FamHx Problem: Diagnosed with Cancer Social History Smoking Status: Never smoker Substance Use Type: None Social History Comments: adult son Meds Medications and Allergies Allergies lisinopril Allergy (Unknown, Verified 06/30/23 12:32) Cough gabapentin Allergy (Verified 06/30/23 12:32) Swelling of Lip/Tongue/Throat Home Medications atorvastatin 40 mg tablet 40 mg PO QPM 11/19/16 [History Confirmed 06/30/23] multivitamin 1 tab PO DAILY 09/07/19 [History Confirmed 06/30/23] aspirin 81 mg tablet,delayed release 81 mg PO DAILY 11/25/19 [History Confirmed 06/30/23] cholecalciferol (vitamin D3) 25 mcg (1,000 unit) tablet (Vitamin D3) 25 mcg PO DAILY 11/25/19 [History Confirmed 06/30/23] citalopram 40 mg tablet 20 mg PO DAILY 11/25/19 [History Confirmed 06/30/23] albuterol sulfate 0.63 mg/3 mL solution for nebulization 0.63 mg inhalation QID PRN SOB 06/26/21 [History Confirmed 06/30/23] docusate sodium 100 mg capsule 100 mg PO BID #60 caps 11/20/21 [Rx Confirmed 06/30/23] pen needle, diabetic 32 gauge x 5/32 (BD Ultra-Fine Lexis Pen Needle) #100 ea 11/20/21 [Rx Confirmed 06/30/23] calcium acetate(phosphat bind) 667 mg capsule 667 mg PO TID.WITH.MEALS 60 days #240 caps 02/26/22 [Rx Confirmed 06/30/23] pantoprazole 40 mg tablet,delayed release 40 mg PO DAILY 05/17/22 [History Confirmed 06/30/23] diclofenac sodium 1 % topical gel (Voltaren Arthritis Pain) 4 g topical QID #0 grams 10/31/22 [Rx Confirmed 06/30/23] furosemide 20 mg tablet 60 mg (3 x 20 mg) PO BID 30 days #180 tabs 10/31/22 [Rx Confirmed 06/30/23] fluticasone fur. 100 mcg-umeclid 62.5 mcg-vilant 25 mcg inhalat.powder (Trelegy Ellipta) 2 ea inhalation DAILY 12/06/22 [History Confirmed 06/30/23] pramipexole 0.5 mg tablet 0.5 mg PO HS 12/06/22 [History Confirmed 06/30/23] insulin lispro 100 unit/mL subcutaneous pen (Humalog KwikPen (U-100) Insulin) 1 sliding scale dose subcut ACHS 12/29/22 [History Confirmed 06/30/23] ondansetron 4 mg disintegrating tablet 4 mg PO Q6H PRN Nausea 12/29/22 [History Confirmed 06/30/23] acetaminophen 650 mg tablet,extended release (Arthritis Pain Reliever) 650 mg POQ12H PRN pain 03/05/23 [History Confirmed 06/30/23] buspirone 10 mg tablet 10 mg PO BID 03/05/23 [History Confirmed 06/30/23] metoprolol tartrate 25 mg tablet 12.5 mg PO DAILY 03/05/23 [History Confirmed 06/30/23] mexiletine 200 mg capsule 200 mg PO Q8HR 30 days #90 caps 03/07/23 [Rx Confirmed 06/30/23] pregabalin 50 mg capsule (Lyrica) 50 mg PO BID 04/01/23 [History Confirmed 06/30/23] oxycodone-acetaminophen 5 mg-325 mg tablet (Percocet) 1 - 2 tab PO Q6HR PRN pain3 days #15 tabs 04/16/23 [Rx Confirmed 06/30/23] midodrine 5 mg tablet 5 mg PO TID 06/12/23 [History Confirmed 06/30/23] lidocaine 4 % topical patch (Lidocaine Pain Relief) 1 patch topical BID 06/30/23[History Confirmed 06/30/23] loratadine 10 mg tablet (Allerclear) 5 mg PO DAILY 06/30/23 [History Confirmed 06/30/23] lubiprostone 8 mcg capsule (Amitiza) 8 mcg PO BID 06/30/23 [History Confirmed 06/30/23] midodrine 5 mg tablet 5 mg PO DAILY PRN low bp 06/30/23 [History Confirmed 06/30/23] polyethylene glycol 3350 17 gram/dose oral powder (ClearLax) 17 g PO BID 06/30/23 [History Confirmed 06/30/23] tizanidine 4 mg capsule (Zanaflex) 4 mg PO QHS 06/30/23 [History Confirmed 06/30/23] Exam Physical Exam Vital Signs: Temp Pulse Resp BP Pulse Ox O2 Del Method O2 Flow Rate 97.8 F 67 16 84/49 L 98 Room Air 2.5 07/01/23 13:11 07/01/23 13:11 07/01/23 13:11 07/01/23 13:11 07/01/23 13:11 07/01/23 13:11 07/01/23 08:16 Narrative: GEN: AAOx3. No acute distress. Neck: In cervical collar. Lungs: Clear to auscultation bilaterally Heart: Regular rate and rhythm. Normal S1 and S2. 3/6 systolic murmur Abdomen: Soft, nontender, nondistended, bowel sounds present. Extremities: No BLE edema. Neuro: AAOx3. No focal deficits. Results - Cardiology Labs 06/30/23 13:04 07/01/23 09:13 Lab results: Comprehensive Metabolic Panel 07/01/23 Range/Units 09:13 Sodium 132 L (136-145) mmol/L Potassium 3.7 (3.5-5.1) mmol/L Chloride 91 L (98-107) mmol/L Carbon Dioxide 26.4 (21.0-31.0) mmol/L BUN 35 H (7-25) mg/dL Creatinine 4.07 H D (0.60-1.20) mg/dL Glucose 312 H D (70-100) mg/dL Calcium 8.5 L (8.6-10.3) mg/dL Albumin 3.1 L (3.5-5.7) gm/dL Intake and Output 06/30/23 07/01/23 07/01/23 23:59 07:59 15:59 Intake Total 710 / 1060 800 / 800 Output Total 0 / 0 Balance 710 / 1060 800 / 800 Intake: IV 350 / 350 Piperacillin/Tazo 4.5GM-*D5* 4. 100 / 100 5 gm In 100 ml @ 200 mls/hr IV ONCE ONE Rx#:[id number] Sodium Chloride 0.9% 250 ml 250 250 / 250 ml @ 999 mls/hr IV ONCE ONE Rx #:[id number] Oral 360 / 710 800 / 800 Output: Urine 0 / 0 Other: # Bowel Movements 0 Weight 61.9 kg 61.6 kg Date of Last Bowel Movement 06/29/23 06/29/23 07/01/23 Patient Weight 07/01/23 23:59 Weight 61.6 kg Lab 06/30/23 13:04 PT 11.4 INR 1.0 APTT 33.6 A&P - Cardiology (1) Chronic hypotension: Code(s): I95.89 - Other hypotension (2) Type 2 diabetes mellitus with diabetic chronic kidney disease: Code(s): E11.22 - Type 2 diabetes mellitus with diabetic chronic kidney disease (3) CAD (coronary artery disease): Qualifiers: Associated angina: without angina Coronary Disease-Associated Artery/Lesion type: cheesh-na artery [place] vs. transplanted heart: cheesh-na heart Qualified Code(s): I25.10 - Atherosclerotic heart disease of cheesh-na coronary artery without angina pectoris Code(s): I25.10 - Atherosclerotic heart disease of cheesh-na coronary artery without angina pectoris (4) ESRD (end stage renal disease): Code(s): N18.6 - End stage renal disease (5) COPD (chronic obstructive pulmonary disease): Code(s): J44.9 - Chronic obstructive pulmonary disease, unspecified (6) Closed odontoid fracture: Qualifiers: Encounter type: initial encounter Qualified Code(s): S12.100A - Unspecified displaced fracture of second cervical vertebra, initial encounter for closed fracture Code(s): S12.100A - Unspecified displaced fracture of second cervical vertebra, initial encounter for closed fracture Plan Ms. Wilson is a 78 year old female with past medical history significant for CADstatus post remote PCI, recurrent VT s/p dual chamber ICD, ESRD on HD, hypertension, hyperlipidemia, COPD on 3 L nasal cannula. She presented after a mechanical fall and sustained an odontoid fracture. She is undergoing neurosurgery evaluation. EKG on admission showed atrial paced rhythm. ICD interrogation showed no atrial or ventricular arrhythmias. Underlying rhythm is sinus bradycardia in the mid 50s. A-paced 48%, V paced 22% 12/14/2022: EF 50-55%. Mild concentric LVH, mild to moderate valvular aortic stenosis, diastolic dysfunction. Assessment: Pre-op cardiac risk stratification Hx of CAD s/p remote PCI- stable Recurrent VT s/p ICD- stable Chronic orthostatic hypotension ESRD on HD HLD COPD Recommendations: - Pt has been ambulating with a walker without limitations. Achieves ~4 METS. Denies angina symptoms. EKG shows atrial paced rhythm without evidence of ischemia. Has chronically elevated troponin in the setting of ESRD. No concern for ongoing ischemia. - ICD interrogation shows no arrhythmias - RCRI score=3 (15% perioperative risk of MACE). Pt is elevated risk for surgerydue to multiple comorbidities. Her CAD is however stable and she is euvolemic onexam. No further cardiac work up recommended prior to surgery - Cardiology will be available perioperatively. Documented By: Edie Michel MD 07/01/23 1402 Signed By: <Electronically signed by Edie Michel MD> 07/01/23 1559 [facility] Work Phone: Discharug summary Author Carlton Mtz [facility] October 31, 2022 7:44pm Note Date/Time October 31, 2022 3:04pm [facility] [address] [place] [address] Discharge Summary Signed Patient: Cinthya Wilson MR#: [id number] : 1945 Acct:[id number] Age/Sex: 77 / F Adm Date: 3 Loc: Room: [address] [place] [address]: Carlton Mtz DO Copies to: MD Carlton Bourgeois II, ~ Providers Date of Discharge: 10/31/22 Discharging Provider: Carlton Mtz Primary Care Provider: Lily Del Real Consults: 10/29/22 23:56 Consult to Nephrology Routine [...] 1 vessel about 10 years ago in [place]. Acute on chronic combined systolic and diastolic [...] daily. The patient normally does follow with [facility] cardiologists and records were reviewed from [...] % (Auto) 61.2, Lymph % (Auto) 19.6, Band[place] % (Auto) 13.8, Eos % (Auto) 4.7, Baso % (Auto) 0.7, Nucleat RBC Rel Count 0.0, Neut # (Auto) 3.3, Lymph # (Auto) 1.1, Bandera # (Auto) 0.7, Eos # (Auto) 0.3, [...] Plan Discharge Plan Patient Disposition: Home Health [facility] Activity: No Activity Restriction Diet: Diabetic Additional Instructions: Please call to schedule an appointment with your established clinical laboratory aide. Continue Hemodialysis as scheduled. Continue to use [...] Ordered By: Carlton Mtz Follow Up: Lily Del Real II, MD [Primary Care Provider] - ([facility] Documented By: Carlton Mtz DO [id number] Signed By: <Electronically signed by Carlton Mtz DO> 10/31/221943 [facility] Work Phone: Evaluation + Plan note No data available for this section [facility] Future App[facility]ments Appointment Date:03/04/2023 01:00:00 PM Scheduled Provider:Julius Loyd DPM [facility] Appointment Type:WC [facility] Future Appointments Appointment Date:03/18/2023 01:30:00 PM Scheduled Provider:Julius Loyd DPM [facility] Appointment Type:WC [facility] Future Appointments Appointment Date:05/06/2023 01:15:00 PM Scheduled Provider:Julius Loyd DPM [facility] Appointment Type:WC [facility] Future Appointments Appointment Date:06/17/2023 01:15:00 PM Scheduled Provider:Julius Loyd DPM [facility] Appointment Type:WC [facility] Future Appointments Appointment Date:07/01/2023 01:00:00 PM Scheduled Provider:Julius Loyd DPM [facility] Appointment Type:WC [facility] Future Appointments Appointment Date:09/26/2023 10:00:00 AM Scheduled Provider: Location:[facility] Appointment Type:NM Bone Scan Whole Body - Inj (FT) Appointment Date:09/26/2023 01:00:00 PM Scheduled Provider: Location:[facility] Appointment Type:NM Bone Scan Whole Body - Scan (FT) Appointment Date:10/14/2023 01:00:00 PM Scheduled Provider:Julius Loyd DPM [facility] Appointment Type:WC Follow Up Visit (FT) Diagnostic Tests Pending * Wound Culture 09/16/23 Future Scheduled Tests Radiology* NM Bone Scan Whole Body 09/26/23 [facility] evaluation + Plan note Future Appointments Appointment Date:09/26/2023 10:00:00 AM Scheduled Provider: Location:[facility] Appointment Type:NM Bone Scan Whole Body - Inj (FT) Appointment Date:09/26/2023 01:00:00 PM Scheduled Provider: Location:[facility] Appointment Type:NM Bone Scan Whole Body - Scan (FT) Appointment Date:10/14/2023 01:00:00 PM Scheduled Provider:Julius Loyd DPM [facility] Appointment Type:WC Follow Up Visit (FT) Future Scheduled Tests Radiology* NM Bone Scan Whole Body 09/26/23 [facility] Evaluation + Plan note Future Appointments Appointment Date:10/07/2023 03:00:00 PM Scheduled Provider:Julius Loyd DPM [facility] Appointment Type:WC Follow Up Visit (FT) [facility] Evaluation + Plan note Future Appointments Appointment Date:10/21/2023 01:30:00 PM Scheduled Provider:Julius Loyd DPM [facility] Appointment Type:WC Follow Up Visit (FT) [facility] Evaluation + Plan note Future Appointments Appointment Date:11/04/2023 02:30:00 PM Scheduled Provider:Julius Loyd DPM [facility] Appointment Type:WC Follow Up Visit (FT) [facility] evaluation + Plan note Future Appointments Appointment Date:11/18/2023 03:00:00 PM Scheduled Provider:Julius Loyd DPM [facility] Appointment Type: Follow Up Visit (FT) [facility] evaluation noteNo assessment information available [facility] Work Phone: evaluation note* Diagnosis Onset Date [...] Right shoulder pain acute Sleep apnea acute [facility] Work Phone: evaluation note* Diagnosis Onset Date Resolution Status Acute hypoxemic respiratory failure acute DAVID (acute kidney injury) ac [place] Anemia acute COPD (chronic obstructive pulmonary disease) acute Diabetes acute Elevated troponin acute HTN (hypertension) acute Systolic and diastolic CHF, acute on chronic acute UTI (urinary tract infection) acute [facility] Work Phone: evaluation note* Diagnosis Onset Date Resolution Status Acute hypoxemic respiratory failure acute DAVID (acute kidney injury) ac [place] Anemia acute COPD (chronic obstructive pulmonary disease) acute Diabetes acute Elevated troponin acute ESRD (end stage renal disease) acute HTN (hypertension) acute Primary hypertension acute Systolic and diastolic CHF, acute on chronic acute UTI (urinary tract infection) acute [facility] Work Phone: evaluation noteNo InformationNort WISErg Other evaluation note* Diagnosis Onset Date Resolution Status Acute hypoxemic respiratory failure acute DAVID (acute kidney injury) ac [place] Anemia acute COPD (chronic obstructive pulmonary disease) acute Diabetes acute Elevated troponin acute ESRD (end stage renal disease) acute HTN (hypertension) acute Primary hypertension acute Systolic and diastolic CHF, acute on chronic acute UTI (urinary tract infection) acute Anemia acute Bright red rectal bleeding a cute Diabetes acute ESRD (end stage renal disease) acute Systolic and diastolic CHF, acute on chronic acute [facility] Work Phone: Evaluation note* Diagnosis Onset Date Resolution Status CAD (coronary artery disease) acute COPD (chronic obstructive pulmonary disease) acute Diabetes acute ESRD (end stage renal disease) acute ESRD on dialysis acute Fall acute Fall at home acute HTN (hypertension) acute Hyponatremia acute Left shoulder pain acute Minor head injury acute Osteoarthritis of left shoulder acute Recurrent right pleural effusion acute [facility] Work Phone: Evaluation note* Diagnosis [...] acute Head injury acute Syncopal episodes acute [facility] Work Phone: Evaluation note* Diagnosis [...] wit h diabetic chronic kidney disease acute [facility] Work Phone: Evaluation note* Diagnosis [...] wit h diabetic chronic kidney disease acute [facility] Work Phone: Evaluation note* Diagnosis Onset [...] diabetic chronic kidney disease acute Weakness acute [facility] Work Phone: Evaluation note* Diagnosis [...] diabetic chronic kidney disease acute Weakness acute [facility] Work Phone: Evaluation note* Diagnosis [...] wit h diabetic chronic kidney disease acute [facility] Work Phone: Evaluation note* Diagnosis Onset [...] kidney disease acute Ventricular tachycardia, sustained acute [facility] Work Phone: Evaluation note* Diagnosis [...] acute Neck pain acute Visual changes acute [facility] Work Phone: Evaluation note* Diagnosis [...] acute Neck pain acute Visual changes acute [facility] Work Phone: Evaluation note* Diagnosis Onset Date Resolution Status Syncope resolved ESRD on dialysis resolved Generalized weakness resolve d Hypokalemia resolved Hypomagnesemia resolved Hypotension resolved Seizure-like activity resolv ed Ventricular tachycardia, sustained resolved Acute hyperkalemia resolved Diplopia resolved Fluid overload resolved Neck pain resolved Visual changes resolved [facility] Work Phone: Evaluation note* Diagnosis Onset Date Resolution Status Carotid stenosis, bilateral acute Chronic hypoxemic respiratory failure acute COPD (chronic obstructive pulmonary disease) acute Acute hyperkalemia resolved Diplopia resolved Fluid overload resolved Neck pain resolved Visual changes resolved Carotid stenosis, bilateral acute Acute electrocardiogram changes acute Anxiety and depression acute Closed odontoid fracture acu te Diabetes mellitus with insulin therapy acute ESRD (end stage renal disease) acute Fall acute Odontoid fracture acute Osteomyelitis acute Primary hypertension acute Stenosis of right vertebral artery acute Troponin level elevated acut e [facility] Work Phone: Evaluation note* Diagnosis Onset Date Resolution Status Carotid stenosis, bilateral acute Anemia of renal disease acut e Atrial fibrillation acute CAD (coronary artery disease) acute Chronic hypotension acute Chronic hypoxemic respiratory failure acute Closed odontoid fracture acu te COPD (chronic obstructive pulmonary disease) acute Diabetes mellitus with insulin therapy acute ESRD (end stage renal disease) acute Fall acute Odontoid fracture acute Odontoid fracture with type II morphology acute Primary hypertension acute Secondary hyperparathyroidism acute Sleep apnea acute Stenosis of right vertebral artery acute Systolic and diastolic CHF, acute on chronic acute Troponin level elevated acut e Type 2 diabetes mellitus wit h diabetic chronic kidney disease acute [facility] Work Phone: Evaluation note* Diagnosis Onset Date Resolution Status Carotid stenosis, bilateral acute Anemia of renal disease acut e Atrial fibrillation acute CAD (coronary artery disease) acute Chronic hypotension acute Chronic hypoxemic respiratory failure acute Closed odontoid fracture acu te COPD (chronic obstructive pulmonary disease) acute Diabetes mellitus with insulin therapy acute ESRD (end stage renal disease) acute Odontoid fracture acute Odontoid fracture with type II morphology acute Primary hypertension acute Secondary hyperparathyroidism acute Sleep apnea acute Stenosis of right vertebral artery acute Systolic and diastolic CHF, acute on chronic acute Type 2 diabetes mellitus wit h diabetic chronic kidney disease acute Fall resolved Troponin level elevated reso lved Anemia of renal disease acut e CAD (coronary artery disease) acute Cardiomyopathy acute Chronic hypotension acute Cognitive communication deficit acute COPD (chronic obstructive pulmonary disease) acute Diplopia acute ESRD (end stage renal disease) acute Impaired mobility and activities of daily living acute Odontoid fracture acute Odontoid fracture with type II morphology acute Oropharyngeal dysphagia acut e Secondary hyperparathyroidism acute Type 2 diabetes mellitus wit h diabetic chronic kidney disease acute [facility] Work Phone: Evaluation note* Diagnosis Onset Date Resolution Status Carotid stenosis, bilateral acute Anemia of renal disease acut e Atrial fibrillation acute CAD (coronary artery disease) acute Chronic hypotension acute Chronic hypoxemic respiratory failure acute Closed odontoid fracture acu te COPD (chronic obstructive pulmonary disease) acute Diabetes mellitus with insulin therapy acute ESRD (end stage renal disease) acute Odontoid fracture acute Odontoid fracture with type II morphology acute Primary hypertension acute Secondary hyperparathyroidism acute Sleep apnea acute Stenosis of right vertebral artery acute Systolic and diastolic CHF, acute on chronic acute Type 2 diabetes mellitus wit h diabetic chronic kidney disease acute Fall resolved Troponin level elevated reso lved Anemia of renal disease acut e CAD (coronary artery disease) acute Cardiomyopathy acute Chronic hypotension acute Cognitive communication deficit acute COPD (chronic obstructive pulmonary disease) acute Diplopia acute ESRD (end stage renal disease) acute Impaired mobility and activities of daily living acute Odontoid fracture acute Odontoid fracture with type II morphology acute Oropharyngeal dysphagia acut e Secondary hyperparathyroidism acute Type 2 diabetes mellitus wit h diabetic chronic kidney disease acute Odontoid fracture with type II morphology acute [facility] Work Phone: Evaluation note* Diagnosis Onset Date Resolution Status Carotid stenosis, bilateral acute Anemia of renal disease acut e Atrial fibrillation acute CAD (coronary artery disease) acute Chronic hypotension acute Chronic hypoxemic respiratory failure acute Closed odontoid fracture acu te COPD (chronic obstructive pulmonary disease) acute Diabetes mellitus with insulin therapy acute ESRD (end stage renal disease) acute Odontoid fracture acute Odontoid fracture with type II morphology acute Primary hypertension acute Secondary hyperparathyroidism acute Sleep apnea acute Stenosis of right vertebral artery acute Systolic and diastolic CHF, acute on chronic acute Type 2 diabetes mellitus wit h diabetic chronic kidney disease acute Fall resolved Troponin level elevated reso lved Anemia of renal disease acut e CAD (coronary artery disease) acute Cardiomyopathy acute Chronic hypotension acute COPD (chronic obstructive pulmonary disease) acute Diplopia acute ESRD (end stage renal disease) acute Impaired mobility and activities of daily living acute Odontoid fracture acute Odontoid fracture with type II morphology acute Oropharyngeal dysphagia acut e Secondary hyperparathyroidism acute Type 2 diabetes mellitus wit h diabetic chronic kidney disease acute Cognitive communication deficit resolved Odontoid fracture with type II morphology acute [facility] Work Phone: Evaluation note* Diagnosis Onset Date Resolution Status Carotid stenosis, bilateral acute Anemia of renal disease acut e Atrial fibrillation acute CAD (coronary artery disease) acute Chronic hypotension acute Chronic hypoxemic respiratory failure acute Closed odontoid fracture acu te COPD (chronic obstructive pulmonary disease) acute Diabetes mellitus with insulin therapy acute ESRD (end stage renal disease) acute Odontoid fracture acute Odontoid fracture with type II morphology acute Primary hypertension acute Secondary hyperparathyroidism acute Sleep apnea acute Stenosis of right vertebral artery acute Systolic and diastolic CHF, acute on chronic acute Type 2 diabetes mellitus wit h diabetic chronic kidney disease acute Fall resolved Troponin level elevated reso lved Anemia of renal disease acut e CAD (coronary artery disease) acute Cardiomyopathy acute Chronic hypotension acute COPD (chronic obstructive pulmonary disease) acute Diplopia acute ESRD (end stage renal disease) acute Impaired mobility and activities of daily living acute Odontoid fracture acute Odontoid fracture with type II morphology acute Oropharyngeal dysphagia acut e Secondary hyperparathyroidism acute Type 2 diabetes mellitus wit h diabetic chronic kidney disease acute Cognitive communication deficit resolved Odontoid fracture with type II morphology acute Odontoid fracture with type II morphology acute [facility] Work Phone: Evaluation note* Diagnosis Onset Date Resolution Status Anemia of renal disease acut e Atrial fibrillation acute CAD (coronary artery disease) acute Chronic hypotension acute Chronic hypoxemic respiratory failure acute Closed odontoid fracture acu te COPD (chronic obstructive pulmonary disease) acute Diabetes mellitus with insulin therapy acute ESRD (end stage renal disease) acute Odontoid fracture acute Odontoid fracture with type II morphology acute Primary hypertension acute Secondary hyperparathyroidism acute Sleep apnea acute Stenosis of right vertebral artery acute Systolic and diastolic CHF, acute on chronic acute Type 2 diabetes mellitus wit h diabetic chronic kidney disease acute Fall resolved Troponin level elevated reso lved Anemia of renal disease acut e CAD (coronary artery disease) acute Cardiomyopathy acute Chronic hypotension acute COPD (chronic obstructive pulmonary disease) acute Diplopia acute ESRD (end stage renal disease) acute Impaired mobility and activities of daily living acute Odontoid fracture acute Odontoid fracture with type II morphology acute Oropharyngeal dysphagia acut e Secondary hyperparathyroidism acute Type 2 diabetes mellitus wit h diabetic chronic kidney disease acute Cognitive communication deficit resolved Odontoid fracture with type II morphology acute Odontoid fracture with type II morphology acute [facility] Work Phone: Evaluation note* Diagnosis Onset Date Resolution Status Anemia of renal disease acut e CAD (coronary artery disease) acute Cardiomyopathy acute Chronic hypotension acute COPD (chronic obstructive pulmonary disease) acute Diplopia acute ESRD (end stage renal disease) acute Impaired mobility and activities of daily living acute Odontoid fracture acute Odontoid fracture with type II morphology acute Oropharyngeal dysphagia acut e Secondary hyperparathyroidism acute Type 2 diabetes mellitus wit h diabetic chronic kidney disease acute Cognitive communication deficit resolved Odontoid fracture with type II morphology acute Odontoid fracture with type II morphology acute [facility] Work Phone: History and physical note Author Gary Almaguer [facility] February 22, 2022 11:26pm Note Date/Time February 22, 2022 9 :35pm [facility] [address] [place] [address] Hospitalist H&P Signed Patient: Cinthya Wilson MR#: [id number] : 1945 Acct:[id number] Age/Sex: 76 / F Adm Date: 3 Loc: 4N Room: 6P6385-1 Type: ADM IN Attending Dr: Gary Almaguer MD Copies to: MD Gary Bourgeois II, MD Paula G Smith, ROSTER CLERK~ HPI DATE OF EXAMINATION: 02/22/22 CHIEF COMPLAINT: [...] states that she went and saw 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 CMP with a sodium of 132, kgivmm62.4, gap 18.6, BUN 126, creatinine 5.19, glucose [...] 19:26 Hct 26.0 % (34.0-46.4) L 02/22/22 19: MCV 94.0 fl (80-100) 02/22/22 19: MCH 29.6 pg (24.7-34.3) 02/22/22 19: MCHC 31.5 g/dL (32.0-35.0) L 02/22/22 19: RDW 16.2 % (11.9-15.3) H 02/22/22 19:26 Plt Count 240 x10E3/uL (150-450) 02/22/22 19: MPV 7.6 fl (6.3-10.7) 02/22/22 19: Neut % (Auto) 71.8 % (.) 02/22/22 19: Lymph % (Auto) 12.3 % (.) 02/22/22: Bandera % (Auto) 11.5 % (.) 02/22/22: Eos % (Auto) 3.7 % (.) 02/22/22: Baso % (Auto) 0.7 % (.) 02/22/22: Nucleat RBC Rel Count 0.1 /100 WBC (0-0.5) 02/22/22: Neut # (Auto) 4.9 x10E3/uL (1.8-7.7) 02/22/22: Lymph # (Auto) 0.8 x10E3/uL (1.00-4.8) L 02/22/22: Bandera # (Auto) 0.8 x10E3/uL (0.0-0.8) 02/22/22: Eos # (Auto) 0.2 x10E3/uL (0.0-0.45) 02/22/22: Baso # (Auto) 0.0 x10E3/uL (0.0-0.2) 02/22/22: Monocyte Dist Width 18.44 % (0.00-20.00) 02/22/22: PT 15.6 Seconds (9.0-12.9) H 02/22/22 19: INR 1.4 02/22/22 19: APTT 36.0 Seconds (25.1-36.5) 02/22/22 19: PHA Creatinine Clear 9.34 02/22/22 19: Sodium 132 mmol/L (136-146) L 02/22/22 19: Potassium 5.0 mmol/L (3.5-5.1) 02/22/22: Chloride 100 mmol/L (95-114) 02/22/22: Carbon Dioxide 18.4 mmol/L (22.0-30.0) L 02/22/22: Anion Gap 18.6 mEq/L (6.0-15.0) H 02/22/22 19: BUN 126 mg/dL (9-23) H 02/22/22 19: Creatinine 5.19 mg/dL (0.44-1.03) H 02/22/22 19:26 Est GFR ( Amer) 10 mL/Min 02/22/22 [...] pH 5.0 (5.0-9.0) 02/22/22 19: Ur Specific [place] 1.015 (1.001-1.030) 02/22/22 19:08 Urine Protein 100 mg/dL (Negative) H 02/22/22 19: Urine Glucose (UA) Normal mg/dL (Normal) 02/22/22 19: Urine Ketones Negative (Negative) 02/22/22 19: Urine Occult Blood Negative (Negative) 02/22/22 19: Urine Nitrite Negative (Negative) 02/22/22 19: Urine Bilirubin Negative (Negative) 02/22/22 19: Urine Urobilinogen Normal mg/dL (Normal) 02/22/22 19: Ur Leukocyte Esterase 2+ (Negative) H 02/22/22 19: Urine RBC 0-1 /HPF (0-4) 02/22/22 19:08 [...] 90% ? Furosemide IV twice daily ? Tucker catheter for accurate I&O ? Trend troponin [...] signed by Gary Almaguer MD> 02/22/22 2326 [facility] Work Phone: History and physical note Author Gary Almaguer [facility] October 30, 2022 12:06am Note Date/Time October 29, 2022 11:31pm [facility] [address] [place] [address] Hospitalist H&P Signed Patient: Cinthya Wilson MR#: [id number] : 1945 Acct:[id number] Age/Sex: 77 / F Adm Date: 3 Loc: Room: [address] [place] [address] Type: ADM INOo Attending Dr: Gary Almaguer MD Copies to: MD Gary Bourgeois II, MD Paula G Smith, ROSTER CLERK~ HPI DATE OF EXAMINATION: 10/29/22 CHIEF COMPLAINT: [...] unless noted in the HPI or below. [facility] Medical History (Updated 10/29/22 @ 23:43 [...] % (Auto) 14.3 % (.) 10/29/22 20:40 Bandera % (Auto) 13.3 % (.) 10/29/22 20:40 Eos % (Auto) 3.5 % (.) 10/29/22 20:40 Baso % (Auto) 0.5 % (.) 10/29/22 20:40 Nucleat RBC Rel Count 0.1 /100 WBC (0-0.5) 10/29/22 20:40 Neut # (Auto) 4.6 x10E3/uL (1.8-7.7) 10/29/22 20:40 Lymph # (Auto) 1.0 x10E3/uL (1.00-4.8) 10/29/22 20:40 Bandera # (Auto) 0.9 x10E3/uL (0.0-0.8) H 10/29/22 [...] signed by Gary Almaguer MD> 10/30/22 0006 [facility] Work Phone: History and physical note Author Carlton Mtz [facility] December 30, 2022 3:22am Note Date/Time December 30, 2022 3:06am [facility] [address] [place], [place] [id number] Hospitalist H&P Signed Patient: Cinthya Wilson MR#: [id number] : 1945 Acct:[id number] Age/Sex: 77 / F Adm Date: 3 Loc: Room: [address] [place] [address] Type: ADM IN Attending Dr: Carlton Mtz [...] chronic use of hydrocodone product such as Houston 10/325 up to Percocet 5/325 enough for [...] except as mentioned elsewhere in the documentation. [facility] Medical History Anemia Anxiety Anxiety and [...] % (Auto) 12.9 % (.) 12/29/22 22:20 Bandera % (Auto) 13.9 % (.) 12/29/22 22:20 Eos % (Auto) 1.0 % (.) 12/29/22 22:20 Baso % (Auto) 0.3 % (.) 12/29/22 22: Nucleat RBC Rel Count 0.0 /100 WBC (0-0.5) 12/29/22 22:20 Neut # (Auto) 6.9 x10E3/uL (1.8-7.7) 12/29/22 22:20 Lymph # (Auto) 1.2 x10E3/uL (1.00-4.8) 12/29/22 22:20 Bandera # (Auto) 1.3 x10E3/uL (0.0-0.8) H 12/29/22 [...] well as RSV I will check a [facility] nasal PCR for more viral pathogens. I [...] days): 5 Documented By: Carlton Mtz DO 030 Signed By: <Electronically signed by Carlton Mtz DO> 12/30/22 0322 [facility] Work Phone: History and physical note Author Tatiana Loya [facility] June 30, 2023 6:01pm Note Date/Time June 30, 2023 5:23p m [facility] [address] [place] [address] Hospitalist H&P Signed Patient: Cinthya Wilson MR#: [id number] : 1945 Acct:[id number] Age/Sex: 78 / F Adm Date: 4 Loc: ER Room: Type: [facility] ER Attending Dr: Copies to: MD Gillian Duran MD Daniel Berry II, MD~ HPI DATE OF EXAMINATION: 06/30/23 CHIEF COMPLAINT: Generalized weakness plan for HISTORY OF PRESENT ILLNESS: 78-year-old white female past medical history of hypertension, hyperlipidemia, diabetes type 2, end-stage renal disease on hemodialysis, chronic COPD, sleep apnea GERD, anxiety, sleep apnea, and chronic neck and back pain who presented to emergency room with generalized weakness, generalized pain and fall. She hasbeen complaining of neck and back pain for the last 3 days. She has episode of fall 3 days ago. She has been complaining of blurred vision for no double vision no dizziness. No slurred speech. No headache. no upper extremity or lower extremity weakness. No upper extremity or lower extremity numbness or tingling. She denies having dizziness. No syncopal episode. She denies any chest pain or shortness of breath. She denies having abdominal pain. No diarrhea. She denies having dysuria, hematuria, frequency. No hematemesis, melena or hematochezia. CT brain no acute intracranial bleed. CTA neck showed stable carotid plaque and stenosis and occlusion of the right vertebral artery unchanged with extensive postoperative and degenerative changes at the cervical spine and NEW FRACTURE AT THE BASE OF THE ODONTOID IS SEEN. Review of Systems Review of Systems All other systems reviewed & are negative unless noted below or in HPI [facility] Medical History (Updated 06/30/23 @ 17:53 by Tatiana Loya MD) Diabetes mellitus with insulin therapy Chronic hypoxemic respiratory failure ESRD (end stage renal disease) CAD (coronary artery disease) COPD (chronic obstructive pulmonary disease) Fall Carotid stenosis, bilateral End-stage renal disease (ESRD) Heart failure Missed dialysis Chronic combined systolic and diastolic CHF (congestive heart failure) Secondary hyperparathyroidism Anemia of renal disease Benign hypertension with end-stage renal disease Type 2 diabetes mellitus with diabetic chronic kidney disease Hyponatremia AV fistula left Pneumonia Polymyalgia GERD (gastroesophageal reflux disease) Anxiety and depression Skin cancer mohs procedure for removal Neuropathy right thigh and feet Sleep apnea Irregular heart rhythm prior to stent placement per pt report Neck pain with history of cervical spinal surgery Cataract had bilateral PHACO Chronic back pain Arthritis Cervical spinal stenosis Anxiety Hyperlipidemia HTN (hypertension) [...] Family History Father Heart disease Cancer Mother Diabetes Cancer Brother Cancer Legacy FamHx Relation: Brother(s); Legacy FamHx Problem: Diagnosed with Cancer Social History Smoking Status: Never smoker Substance Use Type: None Social History Comments: adult son Meds Medications and Allergies Allergies lisinopril Allergy (Unknown, Verified 06/30/23 12:32) Cough gabapentin Allergy (Verified 06/30/23 12:32) Swelling of Lip/Tongue/Throat Home Medications atorvastatin 40 mg tablet 40 mg PO QPM 11/19/16 [History Confirmed 06/30/23] multivitamin 1 tab PO DAILY 09/07/19 [History Confirmed 06/30/23] aspirin 81 mg tablet,delayed release 81 mg PO DAILY 11/25/19 [History Confirmed 06/30/23] cholecalciferol (vitamin D3) 25 mcg (1,000 unit) tablet (Vitamin D3) 25 mcg PO DAILY 11/25/19 [History Confirmed 06/30/23] citalopram 40 mg tablet 20 mg PO DAILY 11/25/19 [History Confirmed 06/30/23] albuterol sulfate 0.63 mg/3 mL solution for nebulization 0.63 mg inhalation QID PRN SOB 06/26/21 [History Confirmed 06/30/23] docusate sodium 100 mg capsule 100 mg PO BID #60 caps 11/20/21 [Rx Confirmed 06/30/23] pen needle, diabetic 32 gauge x 5/32 (BD Ultra-Fine Lexis Pen Needle) #100 ea 11/20/21 [Rx Confirmed 06/30/23] calcium acetate(phosphat bind) 667 mg capsule 667 mg PO TID.WITH.MEALS 60 days #240 caps 02/26/22 [Rx Confirmed 06/30/23] pantoprazole 40 mg tablet,delayed release 40 mg PO DAILY 05/17/22 [History Confirmed 06/30/23] diclofenac sodium 1 % topical gel (Voltaren Arthritis Pain) 4 g topical QID #0 grams 10/31/22 [Rx Confirmed 06/30/23] furosemide 20 mg tablet 60 mg (3 x 20 mg) PO BID 30 days #180 tabs 10/31/22 [Rx Confirmed 06/30/23] fluticasone fur. 100 mcg-umeclid 62.5 mcg-vilant 25 mcg inhalat.powder (Trelegy Ellipta) 2 ea inhalation DAILY 12/06/22 [History Confirmed 06/30/23] pramipexole 0.5 mg tablet 0.5 mg PO HS 12/06/22 [History Confirmed 06/30/23] insulin lispro 100 unit/mL subcutaneous pen (Humalog KwikPen (U-100) Insulin) 1 sliding scale dose subcut ACHS 12/29/22 [History Confirmed 06/30/23] ondansetron 4 mg disintegrating tablet 4 mg PO Q6H PRN Nausea 12/29/22 [History Confirmed 06/30/23] acetaminophen 650 mg tablet,extended release (Arthritis Pain Reliever) 650 mg POQ12H PRN pain 03/05/23 [History Confirmed 06/30/23] buspirone 10 mg tablet 10 mg PO BID 03/05/23 [History Confirmed 06/30/23] metoprolol tartrate 25 mg tablet 12.5 mg PO DAILY 03/05/23 [History Confirmed 06/30/23] mexiletine 200 mg capsule 200 mg PO Q8HR 30 days #90 caps 03/07/23 [Rx Confirmed 06/30/23] pregabalin 50 mg capsule (Lyrica) 50 mg PO BID 04/01/23 [History Confirmed 06/30/23] oxycodone-acetaminophen 5 mg-325 mg tablet (Percocet) 1 - 2 tab PO Q6HR PRN pain3 days #15 tabs 04/16/23 [Rx Confirmed 06/30/23] midodrine 5 mg tablet 5 mg PO TID 06/12/23 [History Confirmed 06/30/23] lidocaine 4 % topical patch (Lidocaine Pain Relief) 1 patch topical BID 06/30/23[History Confirmed 06/30/23] loratadine 10 mg tablet (Allerclear) 5 mg PO DAILY 06/30/23 [History Confirmed 06/30/23] lubiprostone 8 mcg capsule (Amitiza) 8 mcg PO BID 06/30/23 [History Confirmed 06/30/23] midodrine 5 mg tablet 5 mg PO DAILY PRN low bp 06/30/23 [History Confirmed 06/30/23] polyethylene glycol 3350 17 gram/dose oral powder (ClearLax) 17 g PO BID 06/30/23 [History Confirmed 06/30/23] tizanidine 4 mg capsule (Zanaflex) 4 mg PO QHS 06/30/23 [History Confirmed 06/30/23] Exam Physical Exam Vital Signs: Temp Pulse Resp BP Pulse Ox O2 Del Method O2 Flow Rate 97.9 F 77 22 122/56 L 97 Nasal Cannula 2 06/30/23 17:13 06/30/23 17:13 06/30/23 17:13 06/30/23 17:13 06/30/23 17:13 06/30/23 17:13 06/30/23 17:13 Narrative: General patient laying in bed in [...] and judgment Skin: no rash or lesions Results - Hospitalist H&P Lab Results Labs: Laboratory Last Values Corrected WBC 9.4 X10E3/uL (3.8-11.6) 06/30/23 13:04 Uncorrected WBC Count 9.4 x10E3/uL (3.8-11.6) 06/30/23 13:04 RBC 4.23 X10E6/uL (3.60-5.00) 06/30/23 13:04 Hgb 12.2 g/dL (11.8-15.4) 06/30/23 13:04 Hct 37.4 % (34.0-46.4) 06/30/23 13:04 MCV 88.3 fl (80-100) 06/30/23 13:04 MCH 28.8 pg (24.7-34.3) 06/30/23 13:04 MCHC 32.6 g/dL (32.0-35.0) 06/30/23 13:04 RDW 18.3 % (11.9-15.3) H 06/30/23 13:04 Plt Count 143 x10E3/uL (150-450) L 06/30/23 13:04 MPV 8.5 fl (6.3-10.7) 06/30/23 13:04 Neut % (Auto) 82.7 % (.) 06/30/23 13:04 Lymph % (Auto) 7.5 % (.) 06/30/23 13:04 Bandera % (Auto) 9.2 % (.) 06/30/23 13:04 Eos % (Auto) 0.3 % (.) 06/30/23 13:04 Baso % (Auto) 0.3 % (.) 06/30/23 13:04 Nucleat RBC Rel Count 0.0 /100 WBC (0-0.5) 06/30/23 13:04 Neut # (Auto) 7.7 x10E3/uL (1.8-7.7) 06/30/23 13:04 Lymph # (Auto) 0.7 x10E3/uL (1.00-4.8) L 06/30/23 13:04 Bandera # (Auto) 0.9 x10E3/uL (0.0-0.8) H 06/30/23 13:04 Eos # (Auto) 0.0 x10E3/uL (0.0-0.45) 06/30/23 13:04 Baso # (Auto) 0.0 x10E3/uL (0.0-0.2) 06/30/23 13:04 Monocyte Dist Width 25.76 % (0.00-20.00) H 06/30/23 13:04 ESR 102 mm/hr (0-29) H 06/30/23 13:04 PT 11.4 Seconds (9.0-12.9) 06/30/23 13:04 INR 1.0 06/30/23 13:04 APTT 33.6 Seconds (25.1-36.5) 06/30/23 13:04 PHA Creatinine Clear 15.71 06/30/23 13:04 Sodium 133 mmol/L (136-145) L 06/30/23 13:04 Potassium 3.4 mmol/L (3.5-5.1) L 06/30/23 13:04 Chloride 90 mmol/L (98-107) L 06/30/23 13:04 Carbon Dioxide 26.5 mmol/L (21.0-31.0) 06/30/23 13:04 Anion Gap 19.9 mEq/L (6.0-15.0) H 06/30/23 13:04 BUN 19 mg/dL (7-25) 06/30/23 13:04 Creatinine 2.63 mg/dL (0.60-1.20) H 06/30/23 13:04 Est GFR (CKD-EPI) 18.296 mL/Min 06/30/23 13:04 Glucose 130 mg/dL (70-100) H 06/30/23 13:04 Calcium 9.4 mg/dL (8.6-10.3) 06/30/23 13:04 Total Creatine Kinase 108 U/L (30-223) 06/30/23 13:04 Troponin I High Sens 43.7 pg/mL (0.0-15.0) H 06/30/23 13:04 C-Reactive Prot, Quant 21.7 mg/dL (0.0-0.5) H 06/30/23 13:04 B-Natriuretic Peptide 794.0 pg/mL (5-100) H 06/30/23 13:04 Free T4 0.91 ng/dL (0.61-1.12) 06/30/23 13:04 TSH 3rd Generation 2.38 uIU/mL (0.45-5.33) 06/30/23 13:04 Assessment & Plan Assessment/Plan (1) Closed odontoid fracture: (2) Fall: (3) Anxiety and depression: (4) ESRD (end stage renal disease): (5) Diabetes mellitus with insulin therapy: (6) Primary hypertension: Plan Observation admission Fall precaution CT brain: No acute intracranial bleeding CTA neck stable carotid plaque and stenosis and occlusion of the right vertebral artery unchanged with extensive postoperative and degenerative changes at the cervical spine and NEW FRACTURE AT THE BASE OF THE ODONTOID IS SEEN. CT lumbar spine OSTEOPENIA, REVERSE S-SHAPED SCOLIOTIC CURVATURE AND DISCOVERTEBRAL DEGENERATIVECHANGES MOST NOTABLE IN THE LUMBAR REGION. NO OBVIOUS ACUTE THORACIC OR LUMBAR COMPRESSION FRACTURES. INCIDENTAL FINDINGS INCLUDING A PERSISTENT RIGHT PLEURAL EFFUSION WITH ADJACENT LOWER LOBE CONSOLIDATIO Trauma team consult Neurosurgery consult Percocet 1 to 2 tablets every 4 hours as needed for pain PT OT evaluation End-stage renal disease Nephrology consult for dialysis Hypertension: Resume Lopressor Hyperlipidemia: Resume Lipitor CAD: Resume aspirin and lipitor Depression anxiety: Resume citalopram Foot ulcer: Healing/no fever leukocytosis/x-ray/ no osteo/wound care, DVT prophylaxis heparin IP vs OBS Justification Based on differential dx, clinical care plan, and risk of adverse events, if untreated, in my clinical judgement this patient requires an acute care setting as: OBSERVATION because of an expectation of an under 2 midnight stay. Estimated length of stay (# of days): 1 Documented By: Tatiana Loya MD 06/30/23 1719 Signed By: <Electronically signed by Tatiana Loay MD> 06/30/23 1801 [facility] Work Phone: Hisvfuj general Narrative - Reported* Type Description Date [...] see above surgical histo ry Hospitalization History [facility] for bleeding tr ansferred to [facility] 08/2020 [facility] Other [facility] general Narrative - Reported* Type Description Date [...] History [facility] for bleeding tr ansferred to [facility] 08/2020 [facility] Other Hisjl[facility] general Narrative - Reported* Type Description Date [...] see above surgical histo ry Hospitalization History [facility] for bleeding tr ansferred to [facility] 08/2020 Hospitalization History CHRONIC KIDNEY DISEASE S TAGE 5, HYPONATREMIA 11/16/2021 [facility] Other History general Narrative - Reported* Type [...] see above surgical histo ry Hospitalization History [facility] for bleeding tr [facility]ferred to [facility] 08/2020 Hospitalization History CHRONIC KIDNEY DISEASE S TAGE 5, HYPONATREMIA 11/16/2021 [facility] Other Hospital Discharge instructions Additional Instructions SNF [...] Coccyx for protection. -Monitor for urinary retention-- tucker catheter was removed on 02/26/22 -Monitor FSBS ACHS -Care to be managed by SNF providers.[facility] Work Phone: Hospital Discharge instructionsAmbulatory Orders* Initiate [...] protection. - [facility] Work [facility]: Hospital Discharge instructions No data available for this section [facility]* Initiate Home Health [...] per chronic schedule - Fingerstick blood sugar [facility] Work Phone: Hospital Discharge instructions Additional Instructions Follow-up with your primary care doctor Return to ED follow-up worsening symptoms or concerns[facility] Work Phone: Progress note Author Jamal Schaefer [facility] February 23, 2022 9:43am Note Date/Time February 23, 2022 9 :43am [facility] [address] [place] [address] Hospitalist Progress Note Signed Patient: Cinthya Wilson MR#: [id number] : 1945 Acct:[id number] Age/Sex: 76 / F Adm Date: 3 Loc: 4N Room: [address] [place] [address] Type: ADM IN Attending Dr: Jamal Schaefer [...] Insuln.Pen SUBCUT 02/22/23 21:59 Not Given TID.[facility] Protocol Isosorbide Mononitrate 60 mg 02/23/22 09:00 [...] By: <Electronically signed by Jamal Schaefer MD> 02/23/2243 [facility] Work Phone: Progress note Author Geronimo Graham [facility] February 27, 2022 2:29pm Note Date/Time February 27, 2022 2 :29pm [facility] [address] [place] [address] Nephrology Progress Note Signed Patient: Cinthya Wilson MR#: [id number] : 1945 Acct:[id number] Age/Sex: 76 / F Adm Date: 3 Loc: 4N Room: [address] [place] [address] Type: ADM IN Attending Dr: Simone Godoy [...] Dose: Not Given Aspirin (Aspirin 81 Mg Tablet.) 81 mg [...] 50 Mg Tablet) 50 mg PO TID [facility] Stop: 02/22/23 21:59 Last Admin: 02/27/22 09:00 [...] 300 Units/3 Ml Insuln.Pen) 0 units SUBCUT TID..[facility]; Protocol Stop: 02/22/23 21:59 Last Admin: 02/27/22 12:33 Dose: Not Given Melatonin (Melatonin 5 Mg Tablet) 5 mg PO QHS PRN PRN Reason: Insomnia Stop: 02/22/23 21:16 Nystatin (Nystatin 100,000 Unit/Gram Powder 15 Gm Bottle) 1 applic TOPICAL BID PRN PRN Reason: Skin Irritation Last Admin: 02/24/22 17:03 Dose: 1 applic Omeprazole (Omeprazole 20 Mg Capsule.Dr) 40 mg PO DAILY [facility] Stop: 02/23/23 08:59 Last Admin: 02/26/22 08:31 [...] Outpatient dialysis spot is arranged arranged at [facility] to discharge patient from nephrology standpoint after today hemodialysis Documented By: Geronimo Graham MD 02/27/22 142 Signed By: <Electronically signed by Geronimo Graham MD> 02/27/22 1429 [facility] Work Phone: Progress note Author Carlton Mtz [facility] October 30, 2022 6:00pm Note Date/Time October 30, 2022 6:00pm [facility] [address] [place] [address] Hospitalist Progress Note Signed Patient: Cinthya Wilson MR#: [id number] : 1945 Acct:[id number] Age/Sex: 77 / F Adm Date: 3 Loc: 4 Room: 3H1904-9 Type: ADM INOo Attending Dr: Carlton Mtz [...] OARRS report. She most recently picked up [place] 10 mg #120 [id number] supply. She has been picking up [place] consistently from the same provider but is [...] Vial SUBCUT 10/30/23 08:59 5,000 unit Q12HR [facility] Administration Sodium Chloride 1,000 mls @ 0 mls/hr 10/30/22 09:04 10/30/22 10:17 0.9% Sodium Chloride 1,000 Ml MISCELLANE 10/30/23 09:03 Infused .Q0M PRN Infusion Dialysis As Directed Insulin Aspart 0 units 10/30/22 08:00 10/30/22 16:51 Insulin Aspart 300 Units/3 Ml Insuln.Pen SUBCUT 10/30/23 07:59 Not Given TID.WM.[facility] Protocol Isosorbide Mononitrate 60 mg 10/30/22 09:00 Isosorbide Mononitrate 24hr Er 60 Mg Tab.Er.24h PO 10/30/23 08:59 DAILY [facility] Lidocaine 2 patch 10/31/22 09:00 Lidocaine 4% Adh..Patch TOPICAL 10/31/23 08:59 QAM [facility] Midodrine 5 mg 10/30/22 14:15 Midodrine 5 Mg Tablet PO 10/30/23 09:03 MoWeFr@1000 PRN for SBP < 85 Naloxone HCl 0.1 mg 10/29/22 23:50 Naloxone Hcl 0.4 Mg/Ml Vial IV-PUSH 10/29/23 23:49 Q2M PRN Opioid Reversal Non-Formulary Medication 1 tab 10/31/22 09:00 Multivitamin PO 10/31/23 08:59 DAILY [facility] Ondansetron HCl 4 mg 10/29/22 23:50 Ondansetron [...] Pain control -Okay for her to take Houston every 4 hours for the pain. -Voltaren [...] signed by Carlton Mtz DO> 10/30/22 1800 [facility] Work Phone: Progress note Author Narinder [facility] October 31, 2022 3:35pm Note Date/Time October 31, 2022 3:35pm [facility] [address] [place] [address] Nephrology Progress Note Signed Patient: Cinthya Wilson MR#: [id number] : 1945 Acct:[id number] Age/Sex: 77 / F Adm Date: 3 Loc: 4 Room: 9N3402-1 Type: ADM IN Attending Dr: Carlton Mtz DO Copies to: ~ Date of Service: 10/31/2022 Subjective Subjective Narrative: Ms. 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 Patient currently gets dialysis at [facility] on MWF schedule. She is [...] 3 Ml Ampul.Neb) 1 ml INHALATION QID [facility] Stop: 10/30/23 08:59 Last Admin: 10/31/22 11:46 [...] 667 Mg Capsule) 667 mg PO TID.WITH.MEALS [facility] Stop: 10/30/23 07:59 Last Admin: 10/31/22 12:18 Dose: 667 mg Carvedilol (Carvedilol 3.125 Mg Tablet) 3.125 mg PO BID.WITH.MEALS [facility] Stop: 10/31/23 16:59 Citalopram Hydrobromide (Citalopram 40 Mg Tablet) 40 mg PO DAILY [facility] Stop: 10/31/23 08:59 Last Admin: 10/31/22 08:17 Dose: 40 mg Darbepoetin Theodore (Darbepoetin Theodore In Polysorbat 60 Mcg/Ml Vial) 60 mcg IV-PUSHWe@1015 [facility] Stop: 10/30/23 10:14 Last Admin: 10/30/22 10:16 Dose: 60 mcg Dextrose (Dextrose 50% In Water 25 Gm/50 Ml Syringe) 0 gm IV-PUSH PRN PRN PRN Reason: Hypoglycemia Stop: 10/29/23 23:55 Diclofenac Sodium (Diclofenac Sodium 1% Gel 50 Gm Tube) 4 gm TOPICAL QID [facility] Stop: 10/30/23 17:59 Last Admin: 10/31/22 14:36 Dose: 4 gm Docusate Sodium (Docusate 100 Mg Capsule) 100 mg PO BID [facility] Stop: 10/30/23 08:59 Last Admin: 10/31/22 08:17 Dose: 100 mg Docusate Sodium (Docusate 100 Mg Capsule) 200 mg PO QPM [facility] Stop: 10/30/23 20:59 Last Admin: 10/30/22 21:51 Dose: Not Given Glucose (Dextrose 40% Gel 15 Gm Tube) 0 gm PO PRN PRN PRN Reason: Hypoglycemia Stop: 10/29/23 23:55 Glucose (Dextrose 40% Gel 15 Gm Tube) 0.6 gm PO PRN PRN PRN Reason: Hypoglycemia Stop: 10/30/23 04:23 Heparin Sodium (Porcine) (Heparin 5,000 Unit/Ml Vial) 5,000 unit SUBCUT Q12HR [facility] Stop: 10/30/23 08:59 Last Admin: 10/31/22 08:17 Dose: 5,000 unit Sodium Chloride (0.9% Sodium Chloride 1,000 Ml) 1,000 mls @ 0 mls/hr MISCELLANE.Q0M PRN PRN Reason: Dialysis Stop: 10/30/23 09:03 Last Infusion: 10/30/22 10:17 Dose: Infused Insulin Aspart (Insulin Aspart 300 Units/3 Ml Insuln.Pen) 0 units SUBCUT TID.[facility]; Protocol Stop: 10/30/23 07:59 Last Admin: 10/31/22 12:18 Dose: 2 units Lidocaine (Lidocaine 4% Adh..Patch) 2 patch TOPICAL QAM [facility] Stop: 10/31/23 08:59 Last Admin: 10/31/22 08:17 Dose: 2 patch Midodrine (Midodrine 5 Mg Tablet) 5 mg PO MoWeFr@1000 PRN PRN Reason: for SBP < 85 Stop: 10/30/23 09:03 Multivitamins (Multivitamin 1 Tab Tablet) 1 tab PO DAILY [facility] Stop: 10/31/23 08:59 Last Admin: 10/31/22 08:17 Dose: 1 tab Naloxone HCl (Naloxone Hcl 0.4 Mg/Ml Vial) 0.1 mg IV-PUSH Q2M PRN PRN Reason: Opioid Reversal Stop: 10/29/23 23:49 Ondansetron HCl (Ondansetron Odt 4 Mg Tab.Rapdis) 4 mg PO Q6HR PRN PRN Reason: Nausea And Vomiting Stop: 10/29/23 23:49 Pantoprazole Sodium (Pantoprazole 40 Mg Tablet.Dr) 40 mg PO DAILY [facility] Stop: 10/30/23 08:59 Last Admin: 10/31/22 08:17 Dose: 40 mg Sennosides (Sennosides 8.6 Mg Tablet) 1 tab PO BID [facility] Stop: 10/30/23 08:59 Last Admin: 10/31/22 08:17 Dose: 1 tab Sodium Chloride (Sodium Chloride 0.9 % 10 Ml Syringe) 0 ml IV-PUSH PRN PRN PRN Reason: Flush Stop: 10/29/23 20:01 Last Admin: 10/30/22 10:15 Dose: 10 ml Sodium Chloride (Sodium Chloride 0.9 % 10 Ml Syringe) 0 ml IV-PUSH QSHIFT YESSENIA Stop: 10/30/23 05:59 Last Admin: 10/31/22 14:32 [...] volume overload. [facility] (2) Fall [...] <Electronically signed by MD Narinder Toussaint> 10/31/22 6485 [facility] Work Phone: Progress note Author Edie Michel [facility] October 31, 2022 4:31pm Note Date/Time October 31, 2022 4:21pm [facility] [address] [place] [address] Cardiology Progress Note Signed Patient: Cinthya Wilson MR#: [id number] : 1945 Acct:[id number] Age/Sex: 77 / F Adm Date: 3 Loc: Room: [address] [place] [address] Type: ADM IN Attending Dr: Carlton Mtz [...] % (Auto) 61.2 Lymph % (Auto) 19.6 [place] % (Auto) 13.8 Eos % (Auto) 4.7 Baso % (Auto) 0.7 Nucleat RBC Rel Count 0.0 Neut # (Auto) 3.3 Lymph # (Auto) 1.1 [place] # (Auto) 0.7 Eos # (Auto) 0.3 [...] MPV Neut % (Auto) Lymph % (Auto) [place] % (Auto) Eos % (Auto) Baso % (Auto) Nucleat RBC Rel Count Neut # (Auto) Lymph # (Auto) [place] # (Auto) Eos # (Auto) Baso # [...] post PCIx1 about 10 years ago in [place], ESRD on HD, hypertension, hyperlipidemia, CHF, COPD [...] Code(s): I25.10 - Atherosclerotic heart disease of cheesh-na coronary artery without angina pectoris Status: Acute Plan: -Imdur discontinued from the office due to hypotension. Continue aspirin 81 mg daily, Carvedilol 3.125mg BID and Lipitor 40 mg daily -Office records from [facility] reviewed. (3) Systolic and diastolic CHF, acute on chronic: Assessment/Problem Details: NYHA class II. ACC stage C. Euvolemic Code(s): I50.43 - Acute on chronic combined systolic (congestive) and diastolic (congestive) heart failure Status: Acute Plan - Records from [facility] revealed EF of 45% with mildly dilated LV and mild global hypokinesis in July 2022. -Holding valsartan due to hypotension. Continue carvedilol 3.125 mg twice daily. Continue Lasix as directed by nephrology. -Continue volume management via HD -Follow-up with [facility] cardiology in 1 month after discharge -We will sign off please call with questions. Documented By: Edie Michel MD 10/31/22 1617 Signed By: <Electronically signed by Edie Michel MD> 10/31/22 1631 [facility] Work Phone: Progress note No data available for this section [facility] Tatiana Loya [facility] December 30, 2022 11:46am Note Date/Time December 30, 2022 11:46am [facility] [address] [place] [address] Hospitalist Progress Note Signed Patient: Cinthya Wilson MR#: [id number] : 1945 Acct:[id number] Age/Sex: 77 / F Adm Date: 3 Loc: Room: [address] [place] [address] Type: ADM IN Attending Dr: Tatiana Loya [...] Insuln.Pen SUBCUT 12/30/23 07:59 Not Given TID.[facility] Protocol Midodrine 5 mg 12/30/22 03:22 Midodrine [...] 02:59 Saliva Stimulant Agents Comb.3 44.3 Ml [employer] MUCOUS MEM 12/30/23 02:58 PRN PRN Dry [...] chronic use of hydrocodone product such as [place] 10/325 up to Percocet 5/325 enough for [...] signed by Tatiana Loya MD> 12/30/22 1146 [facility] Work Phone: Progress note Author Tatiana Loya [facility] December 31, 2022 11:33am Note Date/Time December 31, 2022 11:33am [facility] [address] [place] [address] Hospitalist Progress Note Signed Patient: Cinthya Wilson MR#: [id number] : 1945 Acct:[id number] Age/Sex: 77 / F Adm Date: 3 Loc: Room: [address] [place] [address] Type: ADM IN Attending Dr: Tatiana Loya [...] 02:59 Saliva Stimulant Agents Comb.3 44.3 Ml [employer] MUCOUS MEM 12/30/23 02:58 PRN PRN Dry [...] chronic use of hydrocodone product such as [place] 10/325 up to Percocet 5/325 enough for [...] signed by Tatiana Loya MD> 12/31/22 1133 [facility] Work Phone: Progress note [facility] December 31, 2022 12:23pm Note Date/Time December 31, 2022 12:18pm [facility] [address] [place] [address] Nephrology Progress Note Signed Patient: Cinthya Wilson MR#: [id number] : 1945 Acct:[id number] Age/Sex: 77 / F Adm Date: 3 Loc: Room: [address] [place] [address] Type: ADM IN Attending Dr: Tatiana Loya MD Copies to: ~ Date of Service: 12/31/2022 Subjective Subjective Narrative: Ms. 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 Patient currently gets dialysis at [facility] on MWF schedule. Patient had [...] 667 Mg Capsule) 667 mg PO TID.WITH.MEALS [facility] Stop: 12/30/23 07:59 Last Admin: 12/31/22 11:55 [...] BID YESSENIA Stop: 12/30/23 08:59 Last Admin: 12/31/22 08:37 Dose: 100 mg Ferric Sodium Gluconate Complex (Sodium Ferric Gluconat/Sucrose 62.5 Mg/5 Ml Vial) 125 mg IV-PUSH Mo@0900 [facility] Stop: 12/30/23 08:59 Last Admin: 12/30/22 10:03 Dose: 125 mg Furosemide (Furosemide 20 Mg Tablet) 60 mg PO BID@0800,1700 [facility] Stop: 12/30/23 08:59 Last Admin: 12/31/22 08:37 [...] Units/3 Ml Insuln.Pen) 0 units SUBCUT TID.[facility]; Protocol Stop: 12/30/23 07:59 Last Admin: 12/31/22 11:55 Dose: 3 units Midodrine (Midodrine 5 Mg Tablet) 5 mg PO TID.7A.12P.5P PRN PRN Reason: Hypotension Stop: 12/30/23 03:21 Multivitamins (Multivitamin 1 Tab Tablet) 1 tab PO DAILY [facility] Stop: 12/30/23 08:59 Last Admin: 12/31/22 08:37 Dose: 1 tab Nystatin (Nystatin Susp 500,000 Unit/5 Ml Udc) 500,000 unit PO QID [facility] Stop: 12/31/23 13:59 Oxycodone/Acetaminophen (Oxycodone/Acetaminophen 5-325 Mg Tablet) 1 tab PO [id number] PRN Reason: Pain Last Admin: 12/30/22 16:50 Dose: 1 tab Pantoprazole Sodium (Pantoprazole 40 Mg Tablet.Dr) 40 mg PO DAILY [facility] Stop: 12/30/23 08:59 Last Admin: 12/31/22 08:37 Dose: 40 mg Polyethylene Glycol (Polyethylene Glycol 3350 17 Gm Powd.Pack) 17 gm PO BID [facility] Stop: 12/31/23 08:59 Last Admin: 12/31/22 08:37 Dose: Not Given Pramipexole Dihydrochloride (Pramipexole 0.5 Mg Tablet) 0.5 mg PO QHS [facility] Stop: 12/30/23 21:59 Last Admin: 12/30/22 22:13 Dose: 0.5 mg Prednisone (Prednisone 20 Mg Tablet) 40 mg PO DAILY [facility] Stop: 12/30/23 13:29 Last Admin: 12/31/22 08:37 Dose: 40 mg Saliva Substitute (Saliva Stimulant Agents Comb.3 44.3 Ml [employer]) 0 ml MUCOUS MEM PRN PRN PRN [...] signed by MD Narinder Toussaint> 12/31/22 1223 [facility] Work Phone: Progress note Author Edie Michel [facility] December 31, 2022 5:16pm Note Date/Time December 31, 2022 5:16pm [facility] [address] [place] [address] Cardiology Progress Note Signed Patient: Cinthya Wilson MR#: [id number] : 1945 Acct:[id number] Age/Sex: 77 / F Adm Date: 3 Loc: Room: 5R5800-9 Type: ADM IN Attending Dr: Tatiana Loya MD Copies to: ~ Date of Service: 12/31/2022 Subjective Interval history: Ms. Wilson is a 77 year old female with PMH significant for CAD status post PCI x1 about 10 years ago in [place], ESRD on HD, hypertension, hyperlipidemia, CHF, COPD [...] % (Auto) 91.5 Lymph % (Auto) 4.3 [place] % (Auto) 4.1 Eos % (Auto) 0.0 Baso % (Auto) 0.1 Nucleat RBC Rel Count 0.1 Neut # (Auto) 6.7 Lymph # (Auto) 0.3 L [place] # (Auto) 0.3 Eos # (Auto) 0.0 [...] MPV Neut % (Auto) Lymph % (Auto) [place] % (Auto) Eos % (Auto) Baso % (Auto) Nucleat RBC Rel Count Neut # (Auto) Lymph # (Auto) [place] # (Auto) Eos # (Auto) Baso # [...] MPV Neut % (Auto) Lymph % (Auto) [place] % (Auto) Eos % (Auto) Baso % (Auto) Nucleat RBC Rel Count Neut # (Auto) Lymph # (Auto) [place] # (Auto) Eos # (Auto) Baso # [...] PCI x1 about 10 years ago in [place], ESRD on HD, hypertension, hyperlipidemia, CHF, COPD [...] Friday as well as with her primary clinical laboratory aide for PPM planning. -Spoke to daughter today, she will drop off event monitor at [facility] diagnosticsdep[facility] - Avoid AVN blockers - Continue telemetry monitoring. - Will follow. Documented By: Edie Michel MD 12/31/221710 Signed By: <Electronically signed by Edie Michel MD> 12/31/221715 [facility] Work Phone: Progress note Author Tatiana Loya [facility] January 01, 2023 10:00am Note Date/Time January 01, 2023 10:00am [facility] [address] [place] [address] Hospitalist Progress Note Signed Patient: Cinthya Wilson MR#: [id number] : 1945 Acct:[id number] Age/Sex: 77 / F Adm Date: 3 Loc: Room: [address] [place] [address] Type: ADM IN Attending Dr: Tatiana Loya [...] 02:59 Saliva Stimulant Agents Comb.3 44.3 Ml [employer] MUCOUS MEM 12/30/23 02:58 PRN PRN Dry [...] chronic use of hydrocodone product such as [place] 10/325 up to Percocet 5/325 enough for [...] signed by Tatiana Loya MD> 01/01/23 1000 [facility] Work Phone: Progress note Author Donal Farrar [facility] January 01, 2023 11:33am Note Date/Time January 01, 2023 11:28am [facility] [address] [place] [address] Cardiology Progress Note Signed Patient: Cinthya Wilson MR#: [id number] : 1945 Acct:[id number] Age/Sex: 77 / F Adm Date: 3 Loc: Room: [address] [place] [address] Type: ADM IN Attending Dr: Tatiana Loya MD Copies to: ~ Date of Service: 01/01/2023 Subjective Principal diagnosis: NSVT, sinus bradycardia on negative chronotropic therapy Interval history: Ms. Wilson is a 77 year old female with PMH significant for CAD status post PCI x1 about 10 years ago in [place], ESRD on HD, hypertension, hyperlipidemia, CHF, COPD [...] MPV Neut % (Auto) Lymph % (Auto) [place] % (Auto) Eos % (Auto) Baso % (Auto) Nucleat RBC Rel Count Neut # (Auto) Lymph # (Auto) [place] # (Auto) Eos # (Auto) Baso # [...] % (Auto) 87.5 Lymph % (Auto) 6.5 [place] % (Auto) 5.9 Eos % (Auto) 0.0 Baso % (Auto) 0.1 Nucleat RBC Rel Count 0.0 Neut # (Auto) 8.8 H Lymph # (Auto) 0.7 L [place] # (Auto) 0.6 Eos # (Auto) 0.0 [...] 0.9 Imaging and cardiology Echo: Additional comments: [facility] [place] [address] [place] [address] Echocardiogram Signed Patient: Cinthya Wilson : 1945 [...] FS: 24.3 % Ao root area: 6.2 [id number] [id number]: 8.9 cm EDV(Teich): EDV(MOD-sp4): 149.3 ml [...] PCI x1 about 10 years ago in [place], ESRD on HD, hypertension, hyperlipidemia, CHF, COPD [...] Friday as well as with her primary clinical laboratory aide for PPM planning. - Avoid AVN blockers - Continue telemetry monitoring. -No new recommendations from a cardiac standpoint. Will follow. Time spent with patient Time Spent With Patient (min): 20 Documented By: Donal Farrar MD 01/01/23 1123 Signed By: <Electronically signed by Donal Farrar MD> 01/01/23 1133 [facility] Work Phone: Progress note Author Narinder Toussaint [facility] January 01, 2023 1:18pm Note Date/Time January 01, 2023 1:18pm [facility] [address] [place] [address] Nephrology Progress Note Signed Patient: Cinthya Wilson MR#: [id number] : 1945 Acct:[id number] Age/Sex: 77 / F Adm Date: 3 Loc: Room: [address] [place] [address] Type: ADM IN Attending Dr: Tatiana Loya MD Copies to: ~ Date of Service: 01/01/2023 Subjective Subjective Narrative: Ms. 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 Patient currently gets dialysis at [facility] on MWF schedule. Patient had [...] Units/3 Ml Insuln.Pen) 0 units SUBCUT TID.[facility]; Protocol Stop: 12/30/23 07:59 Last Admin: 01/01/23 [...] (Oxycodone/Acetaminophen 5-325 Mg Tablet) 1 tab PO [id number] PRN Reason: Pain Last Admin: 01/01/23 08:25 Dose: 1 tab Pantoprazole Sodium (Pantoprazole 40 Mg Tablet.Dr) 40 mg PO DAILY [facility] Stop: 12/30/23 08:59 Last Admin: 01/01/23 08:26 [...] Substitute (Saliva Stimulant Agents Comb.3 44.3 Ml [employer]) 0 ml MUCOUS MEM PRN PRN PRN [...] 10 Ml Syringe) 0 ml IV-PUSH QSHIFT [facility] Stop: 12/30/23 05:59 Last Admin: 01/01/23 06:01 [...] team. Documented By: Narinder Toussaint MD 01/01/23 1315 Signed By: <Electronically signed by MD Narinder Toussaint> 01/01/23 1318 [facility] Work Phone: Progress note Author Georgia Negro [facility] January 02, 2023 12:45pm Note Date/Time January 02, 2023 12:42pm [facility] [address] [place] [address] Cardiology Progress Note Signed Patient: Cinthya Wilson MR#: [id number] : 1945 Acct:[id number] Age/Sex: 77 / F Adm Date: 3 Loc: Room: [address] [place] [address] Type: ADM IN Attending Dr: Tatiana Loya [...] MPV Neut % (Auto) Lymph % (Auto) [place] % (Auto) Eos % (Auto) Baso % (Auto) Nucleat RBC Rel Count Neut # (Auto) Lymph # (Auto) [place] # (Auto) Eos # (Auto) Baso # [...] % (Auto) 80.8 Lymph % (Auto) 9.7 [place] % (Auto) 9.4 Eos % (Auto) 0.0 Baso % (Auto) 0.1 Nucleat RBC Rel Count 0.0 Neut # (Auto) 8.5 H Lymph # (Auto) 1.0 [place] # (Auto) 1.0 H Eos # (Auto) [...] MPV Neut % (Auto) Lymph % (Auto) [place] % (Auto) Eos % (Auto) Baso % (Auto) Nucleat RBC Rel Count Neut # (Auto) Lymph # (Auto) [place] # (Auto) Eos # (Auto) Baso # [...] has been following by cardiology group in [place] she is scheduled to see them on Friday with consideration for pacemaker or AICD 3. Coronary artery disease with remote PCI 4. End-stage renal disease Plan 1. Patient would like to go home. I advised her that it would be difficult to predict the risk of arrhythmia and or syncope. I emphasized to her the importance of continue her long-term follow-up with her clinical laboratory aide/tester compressed gases in [place]. I suspect the patient will need a [...] <Electronically signed by MD Georgia Negro> 01/02/23 1249 [facility] Work Phone: Progress note Author Tatiana Loya [facility] July 01, 2023 9:25am Note Date/Time July 01, 2023 9:22a m [facility] [address] [place] [address] Hospitalist Progress Note Signed Patient: Cinthya Wilson MR#: [id number] : 1945 Acct:[id number] Age/Sex: 78 / F Adm Date: 4 Loc: Room: [address] [place] [address] Type: ADM INOo Attending Dr: Tatiana Loya MD Copies to: ~ Date of Service: 07/01/2023 Subjective Subjective Narrative: 78-year-old white female past medical history of hypertension, hyperlipidemia, diabetes type 2, end-stage renal disease on hemodialysis, chronic COPD, sleep apnea GERD, anxiety, sleep apnea, and chronic neck and back pain who presented to emergency room with generalized weakness, generalized pain and fall. She hasbeen complaining of neck and back pain for the last 3 days. She has episode of fall 3 days ago. She has been complaining of blurred vision for no double vision no dizziness. No slurred speech. No headache. no upper extremity or lower extremity weakness. No upper extremity or lower extremity numbness or tingling. She denies having dizziness. No syncopal episode. She denies any chest pain or shortness of breath. She denies having abdominal pain. No diarrhea. She denies having dysuria, hematuria, frequency. No hematemesis, melena or hematochezia. CT brain no acute intracranial bleed. CTA neck showed stable carotid plaque and stenosis and occlusion of the right vertebral artery unchanged with extensive postoperative and degenerative changes at the cervical spine and NEW FRACTURE AT THE BASE OF THE ODONTOID IS SEEN. Exam Physical Exam Vital Signs: Temp Pulse Resp BP Pulse Ox O2 Del Method O2 Flow Rate 98.0 F 63 20 94/60 L 99 Nasal Cannula 2.5 07/01/23 05:56 07/01/23 08:19 07/01/23 08:19 07/01/23 05:56 07/01/23 05:56 07/01/23 08:16 07/01/23 08:16 Narrative: General patient laying in bed in [...] no rash or lesions Objective Lab Results 06/30/23 13:04 06/30/23 13:04 Meds Allergies and Active Meds Allergies lisinopril Allergy (Unknown, Verified 06/30/23 12:32) Cough gabapentin Allergy (Verified 06/30/23 12:32) Swelling of Lip/Tongue/Throat Active Meds: Active Medications Generic Name Dose Route Start Last Admin Trade Name Freq PRN Reason Stop Dose Admin Acetaminophen 650 mg 06/30/23 18:02 Acetaminophen 325 Mg Tablet PO 06/29/24 18:01 Q6HR PRN Pain Scale 1 - 3 or fever Aspirin 81 mg 05/21/24 09:00 Aspirin 81 Mg Tablet. PO 06/30/24 08:59 DAILY YESSENIA Atorvastatin Calcium 40 mg 06/30/23 21:00 06/30/23 21:45 Atorvastatin 40 Mg Tablet PO 06/29/24 20:59 40 mg QPM YESSENIA Administration Bisacodyl 10 mg 06/30/23 18:02 Bisacodyl 5 Mg Tablet. PO 06/29/24 18:01 DAILY PRN Constipation Budesonide/Formoterol Fumarate 2 puff 06/30/23 21:00 07/01/23 08:14 Budesonide/Formoterol 80-4.5 Mcg 60 Puff/6.9 Gm Hfa.Aer.Ad INHALATION 06/29/24 20:59 2 puff BID YESSENIA Administration Buspirone HCl 10 mg 06/30/23 21:00 06/30/23 21:45 Buspirone 10 Mg Tablet PO 06/29/24 20:59 10 mg BID YESSENIA Administration Calcium Acetate 667 mg 07/01/23 08:00 07/01/23 08:45 Calcium Acetate 667 Mg Capsule PO 06/30/24 07:59 667 mg TID.WITH.MEALS YESSENIA Administration Citalopram Hydrobromide 20 mg 07/01/23 09:00 Citalopram 20 Mg Tablet PO 06/30/24 08:59 DAILY YESSENIA Dextrose 0 gm 06/30/23 18:07 Dextrose 50% In Water 25 Gm/50 Ml Syringe IV-PUSH 06/29/24 18:06 PRN PRN Hypoglycemia Diclofenac Sodium 4 gm 06/30/23 18:00 06/30/23 23:04 Diclofenac Sodium 1% Gel 100 Gm Tube TOPICAL 06/29/24 17:59 Not Given QID YESSENIA Docusate Sodium 100 mg 06/30/23 21:00 06/30/23 21:45 Docusate 100 Mg Capsule PO 06/29/24 20:59 100 mg BID YESSENIA Administration Glucose 0 gm 06/30/23 18:07 Dextrose 40% Gel 15 Gm Tube PO 06/29/24 18:06 PRN PRN Hypoglycemia Heparin Sodium (Porcine) 5,000 unit 06/30/23 22:00 07/01/23 06:01 Heparin 5,000 Unit/Ml Vial SUBCUT 06/29/24 21:59 5,000 unit Q8HR YESSENIA Administration Insulin Aspart 0 units 06/30/23 22:00 07/01/23 08:43 Insulin Aspart 300 Units/3 Ml Insuln.Pen SUBCUT 06/29/24 21:59 5 units TID.WM.HS YESSENIA Administration Protocol Ipratropium [place] 2 mg 06/30/23 20:00 07/01/23 08:10 Ipratropium [place] 0.5 Mg/2.5 Ml Vial.Neb INHALATION 06/29/24 19:59 2 mg QID.RESP YESSENIA Administration Lidocaine 1 patch 06/30/23 21:00 06/30/23 21:59 Lidocaine 4% Adh..Patch TOPICAL 06/29/24 20:59 Not Given BID YESSENIA Loratadine 5 mg 07/01/23 09:00 Loratadine 10 Mg Tablet PO 06/30/24 08:59 DAILY [facility] Lubiprostone 8 mcg 06/30/23 21:00 06/30/23 21:58 Lubiprostone 8 Mcg Capsule PO 06/29/24 20:59 8 mcg BID [facility] Administration Melatonin 5 mg 06/30/23 18:02 Melatonin 5 Mg Tablet PO 06/29/24 18:01 QHS PRN Insomnia Metoprolol Tartrate 12.5 mg 07/01/23 09:00 Metoprolol Tartrate 12.5 Mg Tablet PO 06/30/24 08:59 DAILY YESSENIA Mexiletine HCl 200 mg 06/30/23 22:00 07/01/23 06:01 Mexiletine 200 Mg Capsule PO 06/29/24 21:59 200 mg Q8HR YESSENIA Administration Midodrine 5 mg 06/30/23 17:23 Midodrine 5 Mg Tablet PO 06/29/24 17:22 DAILY PRN low bp Midodrine 5 mg 07/01/23 07:00 07/01/23 06:01 Midodrine 5 Mg Tablet PO 06/30/24 06:59 5 mg TID.7A.12P.5P [facility] Administration Multivitamins 1 tab 07/01/23 09:00 Multivitamin 1 Tab Tablet PO 06/30/24 08:59 DAILY [facility] Non-Formulary Medication 0.63 mg 06/30/23 17:23 Albuterol Sulfate INHALATION 06/29/24 17:22 QID PRN Shortness Of Breath Ondansetron HCl 4 mg 06/30/23 17:23 Ondansetron Odt 4 Mg Tab.Rapdis PO 06/29/24 17:22 Q6H PRN Nausea Ondansetron HCl 4 mg 06/30/23 18:02 Ondansetron 4 Mg/2 Ml Vial IV-PUSH 06/29/24 18:01 Q8H PRN Nausea And Vomiting Oxycodone/Acetaminophen 1 tab 06/30/23 18:02 Oxycodone/Acetaminophen 5-325 Mg Tablet PO Q4H PRN Pain Scale 4 - 7 Oxycodone/Acetaminophen 2 tab 06/30/23 23:49 07/01/23 00:20 Oxycodone/Acetaminophen 5-325 Mg Tablet PO 2 tab Q6HR PRN Administration pain Pantoprazole Sodium 40 mg 07/01/23 09:00 Pantoprazole 40 Mg Tablet. PO 06/30/24 08:59 DAILY YESSENIA Pramipexole Dihydrochloride 0.5 mg 06/30/23 22:00 06/30/23 21:44 Pramipexole 0.5 Mg Tablet PO 06/29/24 21:59 0.5 mg HS YESSENIA Administration Pregabalin 50 mg 06/30/23 21:00 06/30/23 21:44 Pregabalin 50 Mg Capsule PO 12/27/23 20:59 50 mg BID YESSENIA Administration Sodium Chloride 0 ml 06/30/23 12:35 06/30/23 21:43 Sodium Chloride 0.9 % 10 Ml Syringe IV-PUSH 06/29/24 12:34 10 ml PRN PRN Administration Flush Tizanidine HCl 4 mg 06/30/23 22:00 06/30/23 21:44 Tizanidine 4 Mg Tablet PO 06/29/24 21:59 4 mg QHS YESSENIA Administration Vitamin D 25 mcg 07/01/23 09:00 Cholecalciferol 25 Mcg (1,000 Units) Tablet PO 06/30/24 08:59 DAILY YESSENIA A&P - Hospitalist Assessment/Plan (1) Closed odontoid fracture: (2) Fall: (3) Anxiety and depression: (4) ESRD (end stage renal disease): (5) Diabetes mellitus with insulin therapy: (6) Primary hypertension: Plan Close odontoid fracture Mechanical fall Seen and examined Clinically stable C/O neck pain Discussed with neurosurgery Will need Surgery to fix neck fracture Change to inpatient admit Fall precaution CT brain: No acute intracranial bleeding CTA neck stable carotid plaque and stenosis and occlusion of the right vertebral artery unchanged with extensive postoperative and degenerative changes at the cervical spine and NEW FRACTURE AT THE BASE OF THE ODONTOID IS SEEN. CT lumbar spine OSTEOPENIA, REVERSE S-SHAPED SCOLIOTIC CURVATURE AND DISCOVERTEBRAL DEGENERATIVECHANGES MOST NOTABLE IN THE LUMBAR REGION. NO OBVIOUS ACUTE THORACIC OR LUMBAR COMPRESSION FRACTURES. INCIDENTAL FINDINGS INCLUDING A PERSISTENT RIGHT PLEURAL EFFUSION WITH ADJACENT LOWER LOBE CONSOLIDATIO Percocet 1 to 2 tablets every 4 hours as needed for pain PT OT evaluation End-stage renal disease Nephrology consult for dialysis Hypertension: Resume Lopressor Hyperlipidemia: Resume Lipitor CAD: Resume aspirin and Lipitor Depression anxiety: Resume citalopram Foot ulcer: Healing/no fever leukocytosis/x-ray/ no osteo/wound care, DVT prophylaxis heparin Documented By: Tatiana Loya MD 07/01/23918 Signed By: <Electronically signed by Tatiana Loya MD> 07/01/23924 [facility] Work Phone: Progress note Author Wood Zavala [facility] July 02, 2023 11:43am Note Date/Time July 02, 2023 11:43 am [facility] [address] [place] [address] Nephrology Progress Note Signed Patient: Cinthya Wilson MR#: [id number] : 1945 Acct:[id number] Age/Sex: 78 / F Adm Date: 4 Loc: Room: [address] [place] [address] Type: ADM IN Attending Dr: Tatiana Loya MD Copies to: ~ Date of Service: 07/02/2023 Subjective Subjective Narrative: This is a 78-year-old female well-known to to me from outpatient [facility] unit was presented to the emergency room after her dialysis due to the neck pain. 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 Her other comorbidities are CAD s/p PCI, COPD, chronic hypoxic diastolic failure, cardiac arrhythmia s/p AICD and dyslipidemia. Reported as she fell 3 days ago and was having excruciating pain. In the emergency room she had a CT head and neck which showed no acute intracranial bleed or stroke, stable carotid plaque and stenosis and occlusion of the right vertebral artery, new fracture at the base of the odontoid. Patient was admitted for further workup and neurosurgery was consulted. Nephrology is consulted for ESRD management during the hospital stay. Interval history Patient was seen and examined at the bedside during hemodialysis. She reported that difficulty in swallowing but denies any chest pain palpation cough nausea or diarrhea and shortness of breath. She is ordered to have MRI of the spine asrecommended by the neurosurgery to decide about the surgical intervention. Exam Physical Exam Vital Signs: Temp Pulse Resp BP Pulse Ox O2 Del Method O2 Flow Rate 97 F L 65 18 85/45 L 99 Nasal Cannula 3 07/02/23 09:28 07/02/23 10:30 07/02/23 09:28 07/02/23 10:30 07/02/23 09:28 07/02/23 09:28 07/02/23 09:28 Narrative: General: Appears comfortable and not in distress Heart: S1-S2, no rub Lung: Bilateral air entry, no wheezing or crackles Abdomen: Soft, positive bowel sounds Extremities: No edema, no cyanosis Head: Atraumatic, normocephalic Ear: No gross hearing Deficit or external ear redness Eyes: No pallor or redness Neck: No JVD or visible mass Skin: No rashes , warm to touch [employer]FF[employer] AND [employer]SPORT [employer]ANNER: Awake,Alert, following simple command Musculoskeletal: No swelling or limitation of movement of the large joints Psychiatric: Cooperative, normal mood and affect Objective Intake and Output I&O: Intake & Output 06/29/23 06/30/23 07/01/23 07/02/23 23:59 23:59 23:59 23:59 Intake Total 710 / 1060 2009 1100 / 1100 Output Total 0 / 0 0 / 0 Balance 710 / 1060 2009 1100 / 1100 Weight 61.9 kg 61.6 kg 62.6 kg Meds and Allergies Meds: Active Medications Acetaminophen (Acetaminophen 325 Mg Tablet) 650 mg PO Q6HR PRN PRN Reason: Pain Scale 1 - 3 or fever Stop: 06/29/24 18:01 Aspirin (Aspirin 81 Mg Tablet.) 81 mg PO DAILY YESSENIA Stop: 06/30/24 08:59 Last Admin: 07/01/23 10:55 Dose: 81 mg Atorvastatin Calcium (Atorvastatin 40 Mg Tablet) 40 mg PO QPM YESSENIA Stop: 06/29/24 20:59 Last Admin: 07/01/23 21:41 Dose: 40 mg Bisacodyl (Bisacodyl 5 Mg Tablet.Dr) 10 mg PO DAILY PRN PRN Reason: Constipation Stop: 06/29/24 18:01 Budesonide/Formoterol Fumarate (Budesonide/Formoterol 80-4.5 Mcg 60 Puff/6.9 Gm Hfa.Aer.Ad) 2 puff INHALATION BID YESSENIA Stop: 06/29/24 20:59 Last Admin: 07/02/23 07:42 Dose: 2 puff Buspirone HCl (Buspirone 10 Mg Tablet) 10 mg PO BID YESSENIA Stop: 06/29/24 20:59 Last Admin: 07/01/23 21:41 Dose: 10 mg Calcium Acetate (Calcium Acetate 667 Mg Capsule) 667 mg PO TID.WITH.MEALS YESSENIA Stop: 06/30/24 07:59 Last Admin: 07/01/23 17:04 Dose: 667 mg Citalopram Hydrobromide (Citalopram 20 Mg Tablet) 20 mg PO DAILY YESSENIA Stop: 06/30/24 08:59 Last Admin: 07/01/23 10:49 Dose: 20 mg Dextrose (Dextrose 50% In Water 25 Gm/50 Ml Syringe) 0 gm IV-PUSH PRN PRN PRN Reason: Hypoglycemia Stop: 06/29/24 18:06 Diclofenac Sodium (Diclofenac Sodium 1% Gel 100 Gm Tube) 4 gm TOPICAL QID YESSENIA Stop: 06/29/24 17:59 Last Admin: 07/01/23 21:41 Dose: 4 gm Docusate Sodium (Docusate 100 Mg Capsule) 100 mg PO BID YESSENIA Stop: 06/29/24 20:59 Last Admin: 07/01/23 21:41 Dose: 100 mg Glucose (Dextrose 40% Gel 15 Gm Tube) 0 gm PO PRN PRN PRN Reason: Hypoglycemia Stop: 06/29/24 18:06 Heparin Sodium (Porcine) (Heparin 5,000 Unit/Ml Vial) 5,000 unit SUBCUT Q8HR YESSENIA Stop: 06/29/24 21:59 Last Admin: 07/02/23 06:29 Dose: 5,000 unit Heparin Sodium (Porcine) (Heparin 10,000 Unit/10 Ml Vial) 2,000 unit IV PRN PRN PRN Reason: Dialysis Stop: 07/01/24 08:56 Last Admin: 07/02/23 09:58 Dose: 2,000 unit Heparin Sodium (Porcine) (Heparin 10,000 Unit/10 Ml Vial) 1,000 unit IV PRN PRN PRN Reason: Dialysis Stop: 07/01/24 08:56 Last Admin: 07/02/23 09:59 Dose: 1,000 unit Sodium Chloride (0.9% Sodium Chloride 1,000 Ml) 1,000 mls @ 0 mls/hr MISCELLANE.Q0M PRN PRN Reason: Dialysis Stop: 07/01/24 08:56 Last Infusion: 07/02/23 10:31 Dose: Infused Insulin Aspart (Insulin Aspart 300 Units/3 Ml Insuln.Pen) 0 units SUBCUT TID.WM.[facility]; Protocol Stop: 06/29/24 21:59 Last Admin: 07/01/23 21:42 Dose: 2 units Ipratropium [place] (Ipratropium [place] 0.5 Mg/2.5 Ml Vial.Neb) 2 mg INHALATION QID.RESP YESSENIA Stop: 06/29/24 19:59 Last Admin: 07/02/23 07:42 Dose: 2 mg Lidocaine (Lidocaine 4% Adh..Patch) 1 patch TOPICAL BID YESSENIA Stop: 06/29/24 20:59 Last Admin: 07/01/23 21:41 Dose: Not Given Loratadine (Loratadine 10 Mg Tablet) 5 mg PO DAILY YESSENIA Stop: 06/30/24 08:59 Last Admin: 07/01/23 10:50 Dose: 5 mg Lubiprostone (Lubiprostone 8 Mcg Capsule) 8 mcg PO BID YESSENIA Stop: 06/29/24 20:59 Last Admin: 07/01/23 21:41 Dose: 8 mcg Melatonin (Melatonin 5 Mg Tablet) 5 mg PO QHS PRN PRN Reason: Insomnia Stop: 06/29/24 18:01 Metoprolol Tartrate (Metoprolol Tartrate 12.5 Mg Tablet) 12.5 mg PO DAILY YESSENIA Stop: 06/30/24 08:59 Last Admin: 07/01/23 10:50 Dose: Not Given Mexiletine HCl (Mexiletine 200 Mg Capsule) 200 mg PO Q8HR YESSENIA Stop: 06/29/24 21:59 Last Admin: 07/02/23 06:27 Dose: 200 mg Midodrine (Midodrine 5 Mg Tablet) 5 mg PO DAILY PRN PRN Reason: low bp Stop: 06/29/24 17:22 Last Admin: 07/02/23 10:32 Dose: 5 mg Midodrine (Midodrine 5 Mg Tablet) 5 mg PO TID.7A.12P.5P [facility] Stop: 06/30/24 06:59 Last Admin: 07/02/23 06:27 Dose: 5 mg Midodrine (Midodrine 5 Mg Tablet) 5 mg PO PRN PRN PRN Reason: Dialysis Stop: 07/01/24 08:56 Multivitamins (Multivitamin 1 Tab Tablet) 1 tab PO DAILY [facility] Stop: 06/30/24 08:59 Last Admin: 07/01/23 10:49 Dose: 1 tab Non-Formulary Medication (Albuterol Sulfate) 0.63 mg INHALATION QID PRN PRN Reason: Shortness Of Breath Stop: 06/29/24 17:22 Ondansetron HCl (Ondansetron Odt 4 Mg Tab.Rapdis) 4 mg PO Q6H PRN PRN Reason: Nausea Stop: 06/29/24 17:22 Ondansetron HCl (Ondansetron 4 Mg/2 Ml Vial) 4 mg IV-PUSH Q8H PRN PRN Reason: Nausea And Vomiting Stop: 06/29/24 18:01 Oxycodone/Acetaminophen (Oxycodone/Acetaminophen 5-325 Mg Tablet) 1 tab PO Q4H PRN PRN Reason: Pain Scale 4 - 7 Last Admin: 07/01/23 17:05 Dose: 1 tab Oxycodone/Acetaminophen (Oxycodone/Acetaminophen 5-325 Mg Tablet) 2 tab PO [id number] PRN Reason: pain Last Admin: 07/02/23 10:53 Dose: 2 tab Pantoprazole Sodium (Pantoprazole 40 Mg Tablet.Dr) 40 mg PO DAILY [facility] Stop: 06/30/24 08:59 Last Admin: 07/01/23 10:50 Dose: 40 mg Pramipexole Dihydrochloride (Pramipexole 0.5 Mg Tablet) 0.5 mg PO HS [facility] Stop: 06/29/24 21:59 Last Admin: 07/01/23 21:49 Dose: 0.5 mg Pregabalin (Pregabalin 50 Mg Capsule) 50 mg PO BID YESSENIA Stop: 12/27/23 20:59 Last Admin: 07/01/23 21:41 Dose: 50 mg Sodium Chloride (Sodium Chloride 0.9 % 10 Ml Syringe) 0 ml IV-PUSH PRN PRN PRN Reason: Flush Stop: 06/29/24 12:34 Last Admin: 06/30/23 21:43 Dose: 10 ml Sodium Chloride (Sodium Chloride 0.9 % 10 Ml Syringe) 0 ml IV-PUSH PRN PRN PRN Reason: Flush Stop: 07/01/24 08:56 Last Admin: 07/02/23 09:58 Dose: 10 ml Tizanidine HCl (Tizanidine 4 Mg Tablet) 4 mg PO QHS YESSENIA Stop: 06/29/24 21:59 Last Admin: 07/01/23 21:41 Dose: 4 mg Vitamin D (Cholecalciferol 25 Mcg (1,000 Units) Tablet) 25 mcg PO DAILY YESSENIA Stop: 06/30/24 08:59 Last Admin: 07/01/23 10:49 Dose: 25 mcg Allergies lisinopril Allergy (Unknown, Verified 06/30/23 12:32) Cough gabapentin Allergy (Verified 06/30/23 12:32) Swelling of Lip/Tongue/Throat Results - Nephrology Labs 06/30/23 13:04 07/02/23 09:19 Labs: 07/02/23 09:19 BUN 50 H Creatinine 4.96 H D Phosphorus 5.8 H Albumin 3.2 L Radiology Impressions Impressions - last 24 hours: Impressions Cervical Spine X-Ray 07/01/23 08:23 IMPRESSION: POSTOPERATIVE AND DEGENERATIVE CHANGES. POORLY DEMONSTRATED C2 FRACTURE THOUGH NO SIGNIFICANT ALTERED ALIGNMENT WITH FLEXION OR EXTENSION. Impression dictated by: Dianna Pedro M.D.07/01/2023 2:25 PM Dictation Location: [place] [address] Any impression(s) listed above is documentation that was entered by the reading physician into a diagnostic report(s) for Cinthya Wilson. I have reviewed the report(s) and am incorporating any findings in the treatment plan of this patient where applicable. A&P - Nephrology Assessment/Plan (1) Odontoid fracture: Assessment/Problem Details: Patient presents after a fall and was found to have ordered an fracture. Neurosurgery has been consulted and following the patient. (2) ESRD (end stage renal disease): Assessment/Problem Details: She has a ESRD due to the hypertensive nephrosclerosis and diabetic nephropathy. She currently goes to the [facility] dialysis unit 3 times a week on MWF schedule. (3) Type 2 diabetes mellitus with diabetic chronic kidney disease: Assessment/Problem Details: She has insulin-dependent type 2 diabetes mellitus. (4) Secondary hyperparathyroidism: Assessment/Problem Details: She has a secondary hyperparathyroidism due to the ESRD and hyperphosphatemia. She currently takes calcium acetate at home. 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 She takes midodrine for intradialytic hypotension. Plan * Hemodialysis today as ordered. * Continue DM management as per the primary hospitalist team. * Continue midodrine for intradialytic hypotension. * Continue management of the odontoid fracture as per the neurosurgery. * Continue home dose of the calcium acetate. * Documented By: Wood Zaavla MD 07/02/23 1140 Signed By: <Electronically signed by Wood Zavala MD> 07/02/23 1143 [facility] Work Phone: Progress note Author Seth Weiss [facility] July 02, 2023 1:43pm Note Date/Time July 02, 2023 1:42p [facility] [address] [place] [address] Neurosurgery Progress Note Signed Patient: Cinthya Wilson MR#: [id number] : 1945 Acct:[id number] Age/Sex: 78 / F Adm Date: 4 Loc: Room: [address] [place] [address] Type: ADM IN Attending Dr: Tatiana Loya MD Copies to: ~ Date of Service: 07/02/2023 Subjective Subjective HPI: Patient tried to lay down in the MRI scanner today got short of breath and had difficulty swallowing. I talked to her later she seems to be much more comfortable and doing better. She has no other extremity complaints she is wearing her collar appropriately Exam Physical Exam Vital Signs: Temp Pulse Resp BP Pulse Ox O2 Del Method O2 Flow Rate 97 F L 74 18 102/53 L 99 Nasal Cannula 3 07/02/23 09:28 07/02/23 12:00 07/02/23 09:28 07/02/23 12:00 07/02/23 09:28 07/02/23 09:28 07/02/23 09:28 Narrative: Patient alert and talkative Swallowing saliva well not choking in any way, apparently took pills up in dialysis Extremity strength upper extremity 5/5 lower extremity 5/5 bilateral except cannot raise arms overhead Wearing collar appropriately Objective Lab Results Most Recent Labs: 07/02/23 09:19: PHA Creatinine Clear 8.33, Sodium 128 L, Potassium 4.1, [id number] L, Carbon Dioxide 24.2, Anion Gap 18.9 H, BUN 50 H, Creatinine 4.96 H D, Est GFR (CKD-EPI) 8.546, Glucose 226 H, Calcium 8.9, Phosphorus 5.8 H, Albumin 3.2 L 07/02/23 06:44: POC Glucose 174 07/01/23 21:12: POC Glucose 180 07/01/23 16:30: POC Glucose 141 Assessment/Plan Assessment/Plan (1) Odontoid fracture: (2) ESRD (end stage renal disease): (3) Type 2 diabetes mellitus with diabetic chronic kidney disease: (4) Secondary hyperparathyroidism: (5) Chronic hypotension: Plan At this point the patient is unstable at C1-2 she will need some form of stabilization if possible I think a collar will be an extremely poor option she outright refuses a halo and I cannot blame her but surgery will have comorbidities potentially. I will call the patient's daughter tomorrow and alsodiscussed this. At this point with all the difficulties with MRI we will no longer try for an MRI and proceed with stabilization on this patient. Documented By: Seth Weiss MD 07/02/23 1338 Signed By: <Electronically signed by MD Seth Weiss> 07/02/23 9042 [facility] Work Phone: Progress note Author Seth Weiss [facility] July 03, 2023 7:47am Note Date/Time July 03, 2023 7:46a m [facility] [address] [place] [address] Neurosurgery Progress Note Signed Patient: Cinthya Wilson MR#: [id number] : 1945 Acct:[id number] Age/Sex: 78 / F Adm Date: 4 Loc: 3T Room: [address] [place] [address] Type: ADM IN Attending Dr: Tatiana Loya MD Copies to: ~ Date of Service: 07/03/2023 Subjective Subjective HPI: Patient is calm in bed pleasant to talk to states she feels she is swallowing better now. Feels that there may have been an anxiety component to her poor swallowing yesterday. Exam Physical Exam Vital Signs: Temp Pulse Resp BP Pulse Ox O2 Del Method O2 Flow Rate 98.1 F 77 16 125/66 98 Nasal Cannula 2 07/03/23 04:00 07/03/23 04:00 07/03/23 04:00 07/03/23 04:00 07/03/23 04:00 07/03/23 04:00 07/03/23 04:00 Narrative: Alert and oriented by 3 Wearing collar appropriately Face symmetrical Upper extremity strength 5/5 with the exception of deltoid cannot raise arms overhead Lower extremity strength grossly 5/5 appropriate for age Objective Lab Results Most Recent Labs: 07/03/23 06:26: POC Glucose 132 07/02/23 20:27: POC Glucose 85 07/02/23 15:58: POC Glucose 82, POC Glucose Comment Glu2: cleaned meter 07/02/23 14:15: POC Glucose 129 07/02/23 09:19: PHA Creatinine Clear 8.33, Sodium 128 L, Potassium 4.1, [id number] L, Carbon Dioxide 24.2, Anion Gap 18.9 H, BUN 50 H, Creatinine 4.96 H D, Est GFR (CKD-EPI) 8.546, Glucose 226 H, Calcium 8.9, Phosphorus 5.8 H, Albumin 3.2 L Assessment/Plan Assessment/Plan (1) Odontoid fracture: (2) ESRD (end stage renal disease): (3) Type 2 diabetes mellitus with diabetic chronic kidney disease: (4) Secondary hyperparathyroidism: (5) Chronic hypotension: Plan Will try to feed the patient today plan for surgery in a.m. at about noon. Heparin will need to be stopped. Plan is for stabilization of the cervical spine in the morning C1 to possibly C3-4-5. Patient understands and agrees Documented By: Seth Weiss MD 07/03/23 0743 Signed By: <Electronically signed by MD Seth Weiss> 07/03/23 0747 [facility] Work Phone: Progress note Author Wood Zavala [facility] July 03, 2023 10:40am Note Date/Time July 03, 2023 10:40 am [facility] [address] [place] [address] Nephrology Progress Note Signed Patient: Cinthya Wilson MR#: [id number] : 1945 Acct:[id number] Age/Sex: 78 / F Adm Date: 4 Loc: Room: [address] [place] [address] Type: ADM IN Attending Dr: Tatiana Loya MD Copies to: ~ Date of Service: 07/03/2023 Subjective Subjective Narrative: This is a 78-year-old female well-known to to me from outpatient [facility] unit was presented to the emergency room after her dialysis due to the neck pain. 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 Her other comorbidities are CAD s/p PCI, COPD, chronic hypoxic diastolic failure, cardiac arrhythmia s/p AICD and dyslipidemia. Reported as she fell 3 days ago and was having excruciating pain. In the emergency room she had a CT head and neck which showed no acute intracranial bleed or stroke, stable carotid plaque and stenosis and occlusion of the right vertebral artery, new fracture at the base of the odontoid. Patient was admitted for further workup and neurosurgery was consulted. Nephrology is consulted for ESRD management during the hospital stay. Interval history Patient was seen and examined at the bedside. She is feeling better denies any chest pain palpitation cough nausea vomiting diarrhea or shortness of breath. She is scheduled to have a surgery tomorrow. Exam Physical Exam Vital Signs: Temp Pulse Resp BP Pulse Ox O2 Del Method O2 Flow Rate 98.3 F 78 18 118/64 98 Room Air 2 07/03/23 09:20 07/03/23 09:20 07/03/23 09:20 07/03/23 09:20 07/03/23 09:20 07/03/23 09:20 07/03/23 04:00 Narrative: General: Appears comfortable and not in distress Heart: S1-S2, no rub Lung: Bilateral air entry, no wheezing or crackles Abdomen: Soft, positive bowel sounds Extremities: No edema, no cyanosis Head: Atraumatic, normocephalic Ear: No gross hearing Deficit or external ear redness Eyes: No pallor or redness Neck: No JVD or visible mass Skin: No rashes , warm to touch [employer]FF[employer]SPORT [employer]ANNER: Awake,Alert, following simple command Musculoskeletal: No swelling or limitation of movement of the large joints Psychiatric: Cooperative, normal mood and affect Objective Intake and Output I&O: Intake & Output 06/30/23 07/01/23 07/02/23 07/03/23 23:59 23:59 23:59 23:59 Intake Total 710 / 1060 2009 1100 / 1100 0 / 0 Output Total 0 / 0 1001 / 1001 0 / 0 Balance 710 / 1060 2009 99 / 99 0 / 0 Weight 61.9 kg 61.6 kg 62.6 kg 62.5 kg Meds and Allergies Meds: Active Medications Acetaminophen (Acetaminophen 325 Mg Tablet) 650 mg PO Q6HR PRN PRN Reason: Pain Scale 1 - 3 or fever Stop: 06/29/24 18:01 Aspirin (Aspirin 81 Mg Tablet.) 81 mg PO DAILY [facility] Stop: 06/30/24 08:59 Last Admin: 07/03/23 10:33 Dose: 81 mg Atorvastatin Calcium (Atorvastatin 40 Mg Tablet) 40 mg PO QPM [facility] Stop: 06/29/24 20:59 Last Admin: 07/02/23 21:54 Dose: Not Given Bisacodyl (Bisacodyl 5 Mg Tablet.) 10 mg PO DAILY PRN PRN Reason: Constipation Stop: 06/29/24 18:01 Budesonide/Formoterol Fumarate (Budesonide/Formoterol 80-4.5 Mcg 60 Puff/6.9 Gm Hfa.Aer.Ad) 2 puff INHALATION BID [facility] Stop: 06/29/24 20:59 Last Admin: 07/03/23 09:23 Dose: 2 puff Buspirone HCl (Buspirone 10 Mg Tablet) 10 mg PO BID [facility] Stop: 06/29/24 20:59 Last Admin: 07/03/23 10:34 Dose: 10 mg Calcium Acetate (Calcium Acetate 667 Mg Capsule) 667 mg PO TID.WITH.MEALS [facility] Stop: 06/30/24 07:59 Last Admin: 07/03/23 10:34 Dose: Not Given Citalopram Hydrobromide (Citalopram 20 Mg Tablet) 20 mg PO DAILY [facility] Stop: 06/30/24 08:59 Last Admin: 07/03/23 10:34 Dose: 20 mg Dextrose (Dextrose 50% In Water 25 Gm/50 Ml Syringe) 0 gm IV-PUSH PRN PRN PRN Reason: Hypoglycemia Stop: 06/29/24 18:06 Diclofenac Sodium (Diclofenac Sodium 1% Gel 100 Gm Tube) 4 gm TOPICAL QID [facility] Stop: 06/29/24 17:59 Last Admin: 07/03/23 10:33 Dose: 4 gm Docusate Sodium (Docusate 100 Mg Capsule) 100 mg PO BID [facility] Stop: 06/29/24 20:59 Last Admin: 07/03/23 10:33 Dose: 100 mg Glucose (Dextrose 40% Gel 15 Gm Tube) 0 gm PO PRN PRN PRN Reason: Hypoglycemia Stop: 06/29/24 18:06 Heparin Sodium (Porcine) (Heparin 5,000 Unit/Ml Vial) 5,000 unit SUBCUT Q8HR [facility] Stop: 06/29/24 21:59 Last Admin: 07/03/23 06:21 Dose: 5,000 unit Heparin Sodium (Porcine) (Heparin 10,000 Unit/10 Ml Vial) 2,000 unit IV PRN PRN PRN Reason: Dialysis Stop: 07/01/24 08:56 Last Admin: 07/02/23 09:58 Dose: 2,000 unit Heparin Sodium (Porcine) (Heparin 10,000 Unit/10 Ml Vial) 1,000 unit IV PRN PRN PRN Reason: Dialysis Stop: 07/01/24 08:56 Last Admin: 07/02/23 09:59 Dose: 1,000 unit Hydromorphone HCl (Hydromorphone 0.5 Mg/0.5 Ml Syringe) 0.5 mg IV-PUSH Q4H PRN PRN Reason: Pain Scale 8 - 10 Last Admin: 07/03/23 10:33 Dose: 0.5 mg Sodium Chloride (0.9% Sodium Chloride 1,000 Ml) 1,000 mls @ 0 mls/hr MISCELLANE.Q0M PRN PRN Reason: Dialysis Stop: 07/01/24 08:56 Last Infusion: 07/02/23 10:31 Dose: Infused Dextrose (5 % Dextrose In Water) 1,000 mls @ 50 mls/hr IV .Q20H YESSENIA Stop: 07/01/24 16:29 Last Admin: 07/02/23 16:54 Dose: 50 mls/hr Insulin Aspart (Insulin Aspart 300 Units/3 Ml Insuln.Pen) 0 units SUBCUT TID.WM.[facility]; Protocol Stop: 06/29/24 21:59 Last Admin: 07/03/23 09:12 Dose: Not Given Ipratropium [place] (Ipratropium [place] 0.5 Mg/2.5 Ml Vial.Neb) 2 mg INHALATION QID.RESP YESSENIA Stop: 06/29/24 19:59 Last Admin: 07/03/23 09:23 Dose: 2 mg Lidocaine (Lidocaine 4% Adh..Patch) 1 patch TOPICAL BID YESSENIA Stop: 06/29/24 20:59 Last Admin: 07/03/23 10:33 Dose: 1 patch Loratadine (Loratadine 10 Mg Tablet) 5 mg PO DAILY YESSENIA Stop: 06/30/24 08:59 Last Admin: 07/03/23 10:34 Dose: 5 mg Lubiprostone (Lubiprostone 8 Mcg Capsule) 8 mcg PO BID YESSENIA Stop: 06/29/24 20:59 Last Admin: 07/03/23 10:34 Dose: 8 mcg Melatonin (Melatonin 5 Mg Tablet) 5 mg PO QHS PRN PRN Reason: Insomnia Stop: 06/29/24 18:01 Metoprolol Tartrate (Metoprolol Tartrate 12.5 Mg Tablet) 12.5 mg PO DAILY YESSENIA Stop: 06/30/24 08:59 Last Admin: 07/03/23 10:34 Dose: 12.5 mg Mexiletine HCl (Mexiletine 200 Mg Capsule) 200 mg PO Q8HR [facility] Stop: 06/29/24 21:59 Last Admin: 07/03/23 06:18 Dose: Not Given Midodrine (Midodrine 5 Mg Tablet) 5 mg PO DAILY PRN PRN Reason: low bp Stop: 06/29/24 17:22 Last Admin: 07/02/23 10:32 Dose: 5 mg Midodrine (Midodrine 5 Mg Tablet) 5 mg PO TID.7A.12P.5P [facility] Stop: 06/30/24 06:59 Last Admin: 07/03/23 06:19 Dose: Not Given Midodrine (Midodrine 5 Mg Tablet) 5 mg PO PRN PRN PRN Reason: Dialysis Stop: 07/01/24 08:56 Multivitamins (Multivitamin 1 Tab Tablet) 1 tab PO DAILY YESSENIA Stop: 06/30/24 08:59 Last Admin: 07/03/23 10:34 Dose: 1 tab Non-Formulary Medication (Albuterol Sulfate) 0.63 mg INHALATION QID PRN PRN Reason: Shortness Of Breath Stop: 06/29/24 17:22 Ondansetron HCl (Ondansetron Odt 4 Mg Tab.Rapdis) 4 mg PO Q6H PRN PRN Reason: Nausea Stop: 06/29/24 17:22 Ondansetron HCl (Ondansetron 4 Mg/2 Ml Vial) 4 mg IV-PUSH Q8H PRN PRN Reason: Nausea And Vomiting Stop: 06/29/24 18:01 Oxycodone/Acetaminophen (Oxycodone/Acetaminophen 5-325 Mg Tablet) 1 tab PO Q4H PRN PRN Reason: Pain Scale 4 - 7 Last Admin: 07/01/23 17:05 Dose: 1 tab Oxycodone/Acetaminophen (Oxycodone/Acetaminophen 5-325 Mg Tablet) 2 tab PO [id number] PRN Reason: pain Last Admin: 07/02/23 10:53 Dose: 2 tab Pantoprazole Sodium (Pantoprazole 40 Mg Tablet.Dr) 40 mg PO DAILY YESSENIA Stop: 06/30/24 08:59 Last Admin: 07/03/23 10:34 Dose: 40 mg Pramipexole Dihydrochloride (Pramipexole 0.5 Mg Tablet) 0.5 mg PO HS YESSENIA Stop: 06/29/24 21:59 Last Admin: 07/02/23 21:53 Dose: Not Given Pregabalin (Pregabalin 50 Mg Capsule) 50 mg PO BID YESSENIA Stop: 12/27/23 20:59 Last Admin: 07/03/23 10:34 Dose: 50 mg Sodium Chloride (Sodium Chloride 0.9 % 10 Ml Syringe) 0 ml IV-PUSH PRN PRN PRN Reason: Flush Stop: 06/29/24 12:34 Last Admin: 07/03/23 09:30 Dose: 10 ml Sodium Chloride (Sodium Chloride 0.9 % 10 Ml Syringe) 0 ml IV-PUSH PRN PRN PRN Reason: Flush Stop: 07/01/24 08:56 Last Admin: 07/02/23 09:58 Dose: 10 ml Tizanidine HCl (Tizanidine 4 Mg Tablet) 4 mg PO QHS YESSENIA Stop: 06/29/24 21:59 Last Admin: 07/02/23 21:53 Dose: Not Given Vitamin D (Cholecalciferol 25 Mcg (1,000 Units) Tablet) 25 mcg PO DAILY YESSENIA Stop: 06/30/24 08:59 Last Admin: 07/03/23 10:34 Dose: 25 mcg Allergies lisinopril Allergy (Unknown, Verified 06/30/23 12:32) Cough gabapentin Allergy (Verified 06/30/23 12:32) Swelling of Lip/Tongue/Throat Results - Nephrology Labs 06/30/23 13:04 07/02/23 09:19 Radiology Impressions Impressions - last 24 hours: Any impression(s) listed above is documentation that was entered by the reading physician into a diagnostic report(s) for Cinthya Wilson. I have reviewed the report(s) and am incorporating any findings in the treatment plan of this patient where applicable. A&P - Nephrology Assessment/Plan (1) Odontoid fracture: Assessment/Problem Details: Patient presents after a fall and was found to have odontoid fracture. Neurosurgery has been following the patient and plan to do surgery on 07/04/2023. (2) ESRD (end stage renal disease): Assessment/Problem Details: She has a ESRD due to the hypertensive nephrosclerosis and diabetic nephropathy. She currently goes to the [facility] dialysis unit 3 times a week on MWF schedule. (3) Type 2 diabetes mellitus with diabetic chronic kidney disease: Assessment/Problem Details: She has insulin-dependent type 2 diabetes mellitus. (4) Secondary hyperparathyroidism: Assessment/Problem Details: She has a secondary hyperparathyroidism due to the ESRD and hyperphosphatemia. She currently takes calcium acetate at home. 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 She takes midodrine for intradialytic hypotension. Plan * No need for dialysis today. Next dialysis will be likely on Friday. Will check the labs tomorrow just to make sure she is stable for surgery. * Continue DM management as per the primary hospitalist team. * Continue midodrine for intradialytic hypotension. * Continue management of the odontoid fracture as per the neurosurgery. * Continue home dose of the calcium acetate. * Documented By: Wood Zavala MD 07/03/23 1037 Signed By: <Electronically signed by Wood Zavala MD> 07/03/23 1040 [facility] Work Phone: Progress note Author Tatiana Loya [facility] July 03, 2023 12:14pm Note Date/Time July 03, 2023 12:14 pm [facility] [address] [place] [address] Hospitalist Progress Note Signed Patient: Cinthya Wilson MR#: [id number] : 1945 Acct:[id number] Age/Sex: 78 / F Adm Date: 4 Loc: Room: [address] [place] [address] Type: ADM IN Attending Dr: Tatiana Loya MD Copies to: ~ Date of Service: 07/03/2023 Subjective Subjective Narrative: 78-year-old white female past medical history of hypertension, hyperlipidemia, diabetes type 2, end-stage renal disease on hemodialysis, chronic COPD, sleep apnea GERD, anxiety, sleep apnea, and chronic neck and back pain who presented to emergency room with generalized weakness, generalized pain and fall. She hasbeen complaining of neck and back pain for the last 3 days. She has episode of fall 3 days ago. She has been complaining of blurred vision for no double vision no dizziness. No slurred speech. No headache. no upper extremity or lower extremity weakness. No upper extremity or lower extremity numbness or tingling. She denies having dizziness. No syncopal episode. She denies any chest pain or shortness of breath. She denies having abdominal pain. No diarrhea. She denies having dysuria, hematuria, frequency. No hematemesis, melena or hematochezia. CT brain no acute intracranial bleed. CTA neck showed stable carotid plaque and stenosis and occlusion of the right vertebral artery unchanged with extensive postoperative and degenerative changes at the cervical spine and NEW FRACTURE AT THE BASE OF THE ODONTOID IS SEEN. Seen and examined Clinically stable Pain is better No nausea or vomiting No chest pain or SOB Exam Physical Exam Vital Signs: Temp Pulse Resp BP Pulse Ox O2 Del Method O2 Flow Rate 98.3 F 78 18 118/64 98 Room Air 2 07/03/23 09:20 07/03/23 09:20 07/03/23 09:20 07/03/23 09:20 07/03/23 09:20 07/03/23 09:20 07/03/23 04:00 Narrative: General patient laying in bed in [...] no rash or lesions Objective Lab Results 06/30/23 13:04 07/02/23 09:19 Meds Allergies and Active Meds Allergies lisinopril Allergy (Unknown, Verified 06/30/23 12:32) Cough gabapentin Allergy (Verified 06/30/23 12:32) Swelling of Lip/Tongue/Throat Active Meds: Active Medications Generic Name Dose Route Start Last Admin Trade Name Freq PRN Reason Stop Dose Admin Acetaminophen 650 mg 06/30/23 18:02 Acetaminophen 325 Mg Tablet PO 06/29/24 18:01 Q6HR PRN Pain Scale 1 - 3 or fever Aspirin 81 mg 07/01/23 09:00 07/03/23 10:33 Aspirin 81 Mg Tablet. PO 06/30/24 08:59 81 mg DAILY YESSENIA Administration Atorvastatin Calcium 40 mg 06/30/23 21:00 07/02/23 21:54 Atorvastatin 40 Mg Tablet PO 06/29/24 20:59 Not Given QPM YESSENIA Bisacodyl 10 mg 06/30/23 18:02 Bisacodyl 5 Mg Tablet. PO 06/29/24 18:01 DAILY PRN Constipation Budesonide/Formoterol Fumarate 2 puff 06/30/23 21:00 07/03/23 09:23 Budesonide/Formoterol 80-4.5 Mcg 60 Puff/6.9 Gm Hfa.Aer.Ad INHALATION 06/29/24 20:59 2 puff BID YESSENIA Administration Buspirone HCl 10 mg 06/30/23 21:00 07/03/23 10:34 Buspirone 10 Mg Tablet PO 06/29/24 20:59 10 mg BID YESSENIA Administration Calcium Acetate 667 mg 07/01/23 08:00 07/03/23 11:40 Calcium Acetate 667 Mg Capsule PO 06/30/24 07:59 667 mg TID.WITH.MEALS YESSENIA Administration Citalopram Hydrobromide 20 mg 07/01/23 09:00 07/03/23 10:34 Citalopram 20 Mg Tablet PO 06/30/24 08:59 20 mg DAILY YESSENIA Administration Dextrose 0 gm 06/30/23 18:07 Dextrose 50% In Water 25 Gm/50 Ml Syringe IV-PUSH 06/29/24 18:06 PRN PRN Hypoglycemia Diclofenac Sodium 4 gm 06/30/23 18:00 07/03/23 10:33 Diclofenac Sodium 1% Gel 100 Gm Tube TOPICAL 06/29/24 17:59 4 gm QID YESSENIA Administration Docusate Sodium 100 mg 06/30/23 21:00 07/03/23 10:33 Docusate 100 Mg Capsule PO 06/29/24 20:59 100 mg BID YESSENIA Administration Glucose 0 gm 06/30/23 18:07 Dextrose 40% Gel 15 Gm Tube PO 06/29/24 18:06 PRN PRN Hypoglycemia Heparin Sodium (Porcine) 5,000 unit 06/30/23 22:00 07/03/23 06:21 Heparin 5,000 Unit/Ml Vial SUBCUT 06/29/24 21:59 5,000 unit Q8HR YESSENIA Administration Heparin Sodium (Porcine) 2,000 unit 07/02/23 08:57 07/02/23 09:58 Heparin 10,000 Unit/10 Ml Vial IV 07/01/24 08:56 2,000 unit PRN PRN Administration Dialysis Heparin Sodium (Porcine) 1,000 unit 07/02/23 08:57 07/02/23 09:59 Heparin 10,000 Unit/10 Ml Vial IV 07/01/24 08:56 1,000 unit PRN PRN Administration Dialysis Hydromorphone HCl 0.5 mg 07/02/23 20:07 07/03/23 10:33 Hydromorphone 0.5 Mg/0.5 Ml Syringe IV-PUSH 0.5 mg Q4H PRN Administration Pain Scale 8 - 10 Sodium Chloride 1,000 mls @ 0 mls/hr 07/02/23 08:57 07/02/23 10:31 0.9% Sodium Chloride 1,000 Ml MISCELLANE 07/01/24 08:56 Infused .Q0M PRN Infusion Dialysis As Directed Dextrose 1,000 mls @ 50 mls/hr 07/02/23 16:30 07/02/23 16:54 5 % Dextrose In Water IV 07/01/24 16:29 50 mls/hr .Q20H YESSENIA Administration Insulin Aspart 0 units 06/30/23 22:00 07/03/23 11:37 Insulin Aspart 300 Units/3 Ml Insuln.Pen SUBCUT 06/29/24 21:59 Not Given TID.WM.HS YESSENIA Protocol Ipratropium [place] 2 mg 06/30/23 20:00 07/03/23 09:23 Ipratropium [place] 0.5 Mg/2.5 Ml Vial.Neb INHALATION 06/29/24 19:59 2 mg QID.RESP YESSENIA Administration Lidocaine 1 patch 06/30/23 21:00 07/03/23 10:33 Lidocaine 4% Adh..Patch TOPICAL 06/29/24 20:59 1 patch BID YESSENIA Administration Loratadine 5 mg 07/01/23 09:00 07/03/23 10:34 Loratadine 10 Mg Tablet PO 06/30/24 08:59 5 mg DAILY YESSENIA Administration Lubiprostone 8 mcg 06/30/23 21:00 07/03/23 10:34 Lubiprostone 8 Mcg Capsule PO 06/29/24 20:59 8 mcg BID YESSENIA Administration Melatonin 5 mg 06/30/23 18:02 Melatonin 5 Mg Tablet PO 06/29/24 18:01 QHS PRN Insomnia Metoprolol Tartrate 12.5 mg 07/01/23 09:00 07/03/23 10:34 Metoprolol Tartrate 12.5 Mg Tablet PO 06/30/24 08:59 12.5 mg DAILY YESSENIA Administration Mexiletine HCl 200 mg 06/30/23 22:00 07/03/23 06:18 Mexiletine 200 Mg Capsule PO 06/29/24 21:59 Not Given Q8HR YESSENIA Midodrine 5 mg 06/30/23 17:23 07/02/23 10:32 Midodrine 5 Mg Tablet PO 06/29/24 17:22 5 mg DAILY PRN Administration low bp Midodrine 5 mg 07/01/23 07:00 07/03/23 11:39 Midodrine 5 Mg Tablet PO 06/30/24 06:59 5 mg TID.7A.12P.5P YESSENIA Administration Midodrine 5 mg 07/02/23 08:57 Midodrine 5 Mg Tablet PO 07/01/24 08:56 PRN PRN Dialysis Multivitamins 1 tab 07/01/23 09:00 07/03/23 10:34 Multivitamin 1 Tab Tablet PO 06/30/24 08:59 1 tab DAILY YESSENIA Administration Non-Formulary Medication 0.63 mg 06/30/23 17:23 Albuterol Sulfate INHALATION 06/29/24 17:22 QID PRN Shortness Of Breath Ondansetron HCl 4 mg 06/30/23 17:23 Ondansetron Odt 4 Mg Tab.Rapdis PO 06/29/24 17:22 Q6H PRN Nausea Ondansetron HCl 4 mg 06/30/23 18:02 Ondansetron 4 Mg/2 Ml Vial IV-PUSH 06/29/24 18:01 Q8H PRN Nausea And Vomiting Oxycodone/Acetaminophen 1 tab 06/30/23 18:02 07/01/23 17:05 Oxycodone/Acetaminophen 5-325 Mg Tablet PO 1 tab Q4H PRN Administration Pain Scale 4 - 7 Oxycodone/Acetaminophen 2 tab 06/30/23 23:49 07/02/23 10:53 Oxycodone/Acetaminophen 5-325 Mg Tablet PO 2 tab Q6HR PRN Administration pain Pantoprazole Sodium 40 mg 07/01/23 09:00 07/03/23 10:34 Pantoprazole 40 Mg Tablet.Dr PO 06/30/24 08:59 40 mg DAILY YESESNIA Administration Pramipexole Dihydrochloride 0.5 mg 06/30/23 22:00 07/02/23 21:53 Pramipexole 0.5 Mg Tablet PO 06/29/24 21:59 Not Given HS YESSENIA Pregabalin 50 mg 06/30/23 21:00 07/03/23 10:34 Pregabalin 50 Mg Capsule PO 12/27/23 20:59 50 mg BID YESSENIA Administration Sodium Chloride 0 ml 06/30/23 12:35 07/03/23 09:30 Sodium Chloride 0.9 % 10 Ml Syringe IV-PUSH 06/29/24 12:34 10 ml PRN PRN Administration Flush Sodium Chloride 0 ml 07/02/23 08:57 07/02/23 09:58 Sodium Chloride 0.9 % 10 Ml Syringe IV-PUSH 07/01/24 08:56 10 ml PRN PRN Administration Flush Tizanidine HCl 4 mg 06/30/23 22:00 07/02/23 21:53 Tizanidine 4 Mg Tablet PO 06/29/24 21:59 Not Given QHS YESSENIA Vitamin D 25 mcg 07/01/23 09:00 07/03/23 10:34 Cholecalciferol 25 Mcg (1,000 Units) Tablet PO 06/30/24 08:59 25 mcg DAILY YESSENIA Administration A&P - Hospitalist Assessment/Plan (1) Closed odontoid fracture: (2) Fall: (3) Anxiety and depression: (4) ESRD (end stage renal disease): (5) Diabetes mellitus with insulin therapy: (6) Primary hypertension: Plan Close odontoid fracture Mechanical fall Seen and examined Clinically Better Pain is better CT brain: No acute intracranial bleeding CTA neck stable carotid plaque and stenosis and occlusion of the right vertebral artery unchanged with extensive postoperative and degenerative changes at the cervical spine and NEW FRACTURE AT THE BASE OF THE ODONTOID IS SEEN. CT lumbar spine OSTEOPENIA, REVERSE S-SHAPED SCOLIOTIC CURVATURE AND DISCOVERTEBRAL DEGENERATIVECHANGES MOST NOTABLE IN THE LUMBAR REGION. NO OBVIOUS ACUTE THORACIC OR LUMBAR COMPRESSION FRACTURES. INCIDENTAL FINDINGS INCLUDING A PERSISTENT RIGHT PLEURAL EFFUSION WITH ADJACENT LOWER LOBE CONSOLIDATIO Percocet 1 to 2 tablets every 4 hours as needed for pain Neurosurgery is following Plan for surgery tomorrow PT OT evaluation End-stage renal disease: On HD Hypertension: Resume Lopressor Hyperlipidemia: Resume Lipitor CAD: Resume aspirin and Lipitor Depression anxiety: Resume citalopram Foot ulcer: Healing/no fever leukocytosis/x-ray/ no osteo/wound care, Dysphagia: swallow team is following / s/p modified barium study DVT prophylaxis Heparin Documented By: Tatiana Loya MD 07/03/231211 Signed By: <Electronically signed by Tatiana Loya MD> 07/03/234 [facility] Work Phone: Progress note Author Tatiana Loya [facility] July 04, 2023 12:32pm Note Date/Time July 04, 2023 12:32 pm [facility] [address] [place] [address] Hospitalist Progress Note Signed Patient: Cinthya Wilsno MR#: [id number] : 1945 Acct:[id number] Age/Sex: 78 / F Adm Date: 4 Loc: Room: [address] [place] [address] Type: ADM IN Attending Dr: Tatiana Loya MD Copies to: ~ Date of Service: 07/04/2023 Subjective Subjective Narrative: 78-year-old white female past medical history of hypertension, hyperlipidemia, diabetes type 2, end-stage renal disease on hemodialysis, chronic COPD, sleep apnea GERD, anxiety, sleep apnea, and chronic neck and back pain who presented to emergency room with generalized weakness, generalized pain and fall. She hasbeen complaining of neck and back pain for the last 3 days. She has episode of fall 3 days ago. She has been complaining of blurred vision for no double vision no dizziness. No slurred speech. No headache. no upper extremity or lower extremity weakness. No upper extremity or lower extremity numbness or tingling. She denies having dizziness. No syncopal episode. She denies any chest pain or shortness of breath. She denies having abdominal pain. No diarrhea. She denies having dysuria, hematuria, frequency. No hematemesis, melena or hematochezia. CT brain no acute intracranial bleed. CTA neck showed stable carotid plaque and stenosis and occlusion of the right vertebral artery unchanged with extensive postoperative and degenerative changes at the cervical spine and NEW FRACTURE AT THE BASE OF THE ODONTOID IS SEEN. Seen and examined Clinically stable No nausea or vomiting No chest pain or SOB Exam Physical Exam Vital Signs: Temp Pulse Resp BP Pulse Ox O2 Del Method O2 Flow Rate 98.4 F 67 18 123/60 100 Nasal Cannula 2 07/04/23 08:05 07/04/23 08:05 07/04/23 08:05 07/04/23 08:05 07/04/23 08:05 07/04/23 08:05 07/04/23 08:05 Narrative: General patient laying in bed in [...] no rash or lesions Objective Lab Results 06/30/23 13:04 07/04/23 06:37 Meds Allergies and Active Meds Allergies lisinopril Allergy (Unknown, Verified 06/30/23 12:32) Cough gabapentin Allergy (Verified 06/30/23 12:32) Swelling of Lip/Tongue/Throat Active Meds: Active Medications Generic Name Dose Route Start Last Admin Trade Name Freq PRN Reason Stop Dose Admin Acetaminophen 650 mg 06/30/23 18:02 Acetaminophen 325 Mg Tablet PO 06/29/24 18:01 Q6HR PRN Pain Scale 1 - 3 or fever Acetaminophen 500 mg 07/04/23 06:00 07/04/23 06:46 Acetaminophen 500 Mg Tablet PO 07/07/23 05:59 Not Given Q6H YESSENIA Aspirin 81 mg 07/01/23 09:00 07/03/23 10:33 Aspirin 81 Mg Tablet. PO 06/30/24 08:59 81 mg DAILY YESSENIA Administration Atorvastatin Calcium 40 mg 06/30/23 21:00 07/03/23 21:30 Atorvastatin 40 Mg Tablet PO 06/29/24 20:59 40 mg QPM YESSENIA Administration Bisacodyl 10 mg 06/30/23 18:02 Bisacodyl 5 Mg Tablet. PO 06/29/24 18:01 DAILY PRN Constipation Budesonide/Formoterol Fumarate 2 puff 06/30/23 21:00 07/04/23 12:26 Budesonide/Formoterol 80-4.5 Mcg 60 Puff/6.9 Gm Hfa.Aer.Ad INHALATION 06/29/24 20:59 Not Given BID YESSENIA Buspirone HCl 10 mg 06/30/23 21:00 07/03/23 21:30 Buspirone 10 Mg Tablet PO 06/29/24 20:59 10 mg BID YESSENIA Administration Calcium Acetate 667 mg 07/01/23 08:00 07/04/23 07:35 Calcium Acetate 667 Mg Capsule PO 06/30/24 07:59 Not Given TID.WITH.MEALS [facility] Citalopram Hydrobromide 20 mg 07/01/23 09:00 07/03/23 10:34 Citalopram 20 Mg Tablet PO 06/30/24 08:59 20 mg DAILY YESSENIA Administration Dextrose 0 gm 06/30/23 18:07 Dextrose 50% In Water 25 Gm/50 Ml Syringe IV-PUSH 06/29/24 18:06 PRN PRN Hypoglycemia Diclofenac Sodium 4 gm 06/30/23 18:00 07/03/23 21:38 Diclofenac Sodium 1% Gel 100 Gm Tube TOPICAL 06/29/24 17:59 Not Given QID YESSENIA Docusate Sodium 100 mg 06/30/23 21:00 07/03/23 21:30 Docusate 100 Mg Capsule PO 06/29/24 20:59 100 mg BID YESSENIA Administration Glucose 0 gm 06/30/23 18:07 Dextrose 40% Gel 15 Gm Tube PO 06/29/24 18:06 PRN PRN Hypoglycemia Heparin Sodium (Porcine) 5,000 unit 06/30/23 22:00 07/03/23 06:21 Heparin 5,000 Unit/Ml Vial SUBCUT 06/29/24 21:59 5,000 unit Q8HR YESSENIA Administration Heparin Sodium (Porcine) 2,000 unit 07/02/23 08:57 07/02/23 09:58 Heparin 10,000 Unit/10 Ml Vial IV 07/01/24 08:56 2,000 unit PRN PRN Administration Dialysis Heparin Sodium (Porcine) 1,000 unit 07/02/23 08:57 07/02/23 09:59 Heparin 10,000 Unit/10 Ml Vial IV 07/01/24 08:56 1,000 unit PRN PRN Administration Dialysis Hydromorphone HCl 0.5 mg 07/02/23 20:07 07/03/23 10:33 Hydromorphone 0.5 Mg/0.5 Ml Syringe IV-PUSH 0.5 mg Q4H PRN Administration Pain Scale 8 - 10 Hydromorphone HCl 0.5 mg 07/04/23 10:08 07/04/23 12:23 Hydromorphone 0.5 Mg/0.5 Ml Syringe IV-PUSH 07/04/23 13:08 0.5 mg Q5M PRN Administration Pain Sodium Chloride 1,000 mls @ 0 mls/hr 07/02/23 08:57 07/02/23 10:31 0.9% Sodium Chloride 1,000 Ml MISCELLANE 07/01/24 08:56 Infused .Q0M PRN Infusion Dialysis As Directed Dextrose 1,000 mls @ 50 mls/hr 07/02/23 16:30 07/03/23 15:21 5 % Dextrose In Water IV 07/01/24 16:29 50 mls/hr .Q20H YESSENIA Administration Sodium Chloride 500 mls @ 20 mls/hr 07/04/23 08:15 07/04/23 12:26 0.9% Sodium Chloride 500 Ml IV 07/03/24 08:14 20 mls/hr .Q24H YESSENIA Infusion Insulin Aspart 0 units 06/30/23 22:00 07/04/23 07:22 Insulin Aspart 300 Units/3 Ml Insuln.Pen SUBCUT 06/29/24 21:59 3 units TID.WM.HS YESSENIA Administration Protocol Ipratropium [place] 2 mg 06/30/23 20:00 07/04/23 12:26 Ipratropium [place] 0.5 Mg/2.5 Ml Vial.Neb INHALATION 06/29/24 19:59 Not Given QID.RESP YESSENIA Lidocaine 1 patch 06/30/23 21:00 07/03/23 21:31 Lidocaine 4% Adh..Patch TOPICAL 06/29/24 20:59 Not Given BID YESSENIA Lidocaine HCl 0.1 ml 07/04/23 00:00 Lidocaine 1% 50 Ml Vial INTRADERMA PREOP PRN Venipuncture x 1 Dose Loratadine 5 mg 07/01/23 09:00 07/03/23 10:34 Loratadine 10 Mg Tablet PO 06/30/24 08:59 5 mg DAILY YESSENIA Administration Lorazepam 0.25 mg 07/04/23 12:20 Lorazepam 2 Mg/Ml Vial IV-PUSH 12/31/23 12:19 Q6H PRN Pain Lubiprostone 8 mcg 06/30/23 21:00 07/03/23 21:30 Lubiprostone 8 Mcg Capsule PO 06/29/24 20:59 8 mcg BID YESSENIA Administration Melatonin 5 mg 06/30/23 18:02 Melatonin 5 Mg Tablet PO 06/29/24 18:01 QHS PRN Insomnia Metoprolol Tartrate 12.5 mg 07/01/23 09:00 07/04/23 06:47 Metoprolol Tartrate 12.5 Mg Tablet PO 06/30/24 08:59 12.5 mg DAILY YESSENIA Administration Mexiletine HCl 200 mg 06/30/23 22:00 07/04/23 06:46 Mexiletine 200 Mg Capsule PO 06/29/24 21:59 Not Given Q8HR YESSENIA Midodrine 5 mg 06/30/23 17:23 07/02/23 10:32 Midodrine 5 Mg Tablet PO 06/29/24 17:22 5 mg DAILY PRN Administration low bp Midodrine 5 mg 07/01/23 07:00 07/04/23 07:35 Midodrine 5 Mg Tablet PO 06/30/24 06:59 Not Given TID.7A.12P.5P YESSENIA Midodrine 5 mg 07/02/23 08:57 Midodrine 5 Mg Tablet PO 07/01/24 08:56 PRN PRN Dialysis Multivitamins 1 tab 07/01/23 09:00 07/03/23 10:34 Multivitamin 1 Tab Tablet PO 06/30/24 08:59 1 tab DAILY YESSENIA Administration Non-Formulary Medication 0.63 mg 06/30/23 17:23 Albuterol Sulfate INHALATION 06/29/24 17:22 QID PRN Shortness Of Breath Ondansetron HCl 4 mg 06/30/23 17:23 Ondansetron Odt 4 Mg Tab.Rapdis PO 06/29/24 17:22 Q6H PRN Nausea Ondansetron HCl 4 mg 06/30/23 18:02 Ondansetron 4 Mg/2 Ml Vial IV-PUSH 06/29/24 18:01 Q8H PRN Nausea And Vomiting Ondansetron HCl 4 mg 07/04/23 10:08 Ondansetron 4 Mg/2 Ml Vial IV-PUSH 07/04/23 13:08 ONCE PRN Nausea/Vomiting Oxycodone/Acetaminophen 1 tab 06/30/23 18:02 07/01/23 17:05 Oxycodone/Acetaminophen 5-325 Mg Tablet PO 1 tab Q4H PRN Administration Pain Scale 4 - 7 Oxycodone/Acetaminophen 2 tab 06/30/23 23:49 07/02/23 10:53 Oxycodone/Acetaminophen 5-325 Mg Tablet PO 2 tab Q6HR PRN Administration pain Pantoprazole Sodium 40 mg 07/01/23 09:00 07/03/23 10:34 Pantoprazole 40 Mg Tablet.Dr PO 06/30/24 08:59 40 mg DAILY YESSENIA Administration Pramipexole Dihydrochloride 0.5 mg 06/30/23 22:00 07/03/23 21:39 Pramipexole 0.5 Mg Tablet PO 06/29/24 21:59 Not Given HS YESSENIA Pregabalin 50 mg 06/30/23 21:00 07/03/23 21:30 Pregabalin 50 Mg Capsule PO 12/27/23 20:59 50 mg BID YESSENIA Administration Sodium Chloride 0 ml 06/30/23 12:35 07/03/23 09:30 Sodium Chloride 0.9 % 10 Ml Syringe IV-PUSH 06/29/24 12:34 10 ml PRN PRN Administration Flush Sodium Chloride 0 ml 07/02/23 08:57 07/02/23 09:58 Sodium Chloride 0.9 % 10 Ml Syringe IV-PUSH 07/01/24 08:56 10 ml PRN PRN Administration Flush Sodium Chloride 0 ml 07/04/23 00:00 Sodium Chloride 0.9 % 10 Ml Syringe IV-PUSH 07/03/24 00:00 PRN PRN Flush Sodium Chloride 10 ml 07/04/23 12:20 Sodium Chloride 0.9 % 10 Ml Vial.Pf INJECTION 07/03/24 12:19 Q6H PRN Ativan dilution Tizanidine HCl 4 mg 06/30/23 22:00 07/03/23 21:30 Tizanidine 4 Mg Tablet PO 06/29/24 21:59 4 mg QHS YESSENIA Administration Vitamin D 25 mcg 07/01/23 09:00 07/03/23 10:34 Cholecalciferol 25 Mcg (1,000 Units) Tablet PO 06/30/24 08:59 25 mcg DAILY YESSENIA Administration A&P - Hospitalist Assessment/Plan (1) Closed odontoid fracture: (2) Fall: (3) Anxiety and depression: (4) ESRD (end stage renal disease): (5) Diabetes mellitus with insulin therapy: (6) Primary hypertension: Plan Close odontoid fracture Mechanical fall Seen and examined Clinically stable S/p Posterior Cervical Decompression with C1-5 Fixation Dilaudid 0.5 mg every 4 hours as needed Percocet 1 to 2 tablets every 4 hours as needed for pain Neurosurgery is following PT/OT End-stage renal disease: On HD Hypertension: Resume Lopressor Hyperlipidemia: Resume Lipitor CAD: Resume aspirin and Lipitor Depression anxiety: Resume citalopram Foot ulcer: Healing/no fever leukocytosis/x-ray/ no osteo/wound care, Dysphagia: swallow team is following / s/p modified barium study DVT prophylaxis Heparin Documented By: Tatiana Loya MD 07/04/23 1228 Signed By: <Electronically signed by Tatiana Loya MD> 07/04/23 1232 [facility] Work Phone: Progress note Author Tatiana Loya [facility] July 04, 2023 2:23pm Note Date/Time July 04, 2023 1:08p [facility] [address] [place] [address] Hospitalist Progress Note Signed Patient: Cinthya Wilson MR#: [id number] : 1945 Acct:[id number] Age/Sex: 78 / F Adm Date: 4 Loc: Room: [address] [place] [address] Type: ADM IN Attending Dr: Tatiana Loya MD Copies to: ~ Date of Service: 07/04/2023 Subjective Subjective Narrative: 78-year-old white female past medical history of hypertension, hyperlipidemia, diabetes type 2, end-stage renal disease on hemodialysis, chronic COPD, sleep apnea GERD, anxiety, sleep apnea, and chronic neck and back pain who presented to emergency room with generalized weakness, generalized pain and fall. She hasbeen complaining of neck and back pain for the last 3 days. She has episode of fall 3 days ago. She has been complaining of blurred vision for no double vision no dizziness. No slurred speech. No headache. no upper extremity or lower extremity weakness. No upper extremity or lower extremity numbness or tingling. She denies having dizziness. No syncopal episode. She denies any chest pain or shortness of breath. She denies having abdominal pain. No diarrhea. She denies having dysuria, hematuria, frequency. No hematemesis, melena or hematochezia. CT brain no acute intracranial bleed. CTA neck showed stable carotid plaque and stenosis and occlusion of the right vertebral artery unchanged with extensive postoperative and degenerative changes at the cervical spine and NEW FRACTURE AT THE BASE OF THE ODONTOID IS SEEN. Seen and examined Clinically stable No nausea or vomiting No chest pain or SOB Exam Physical Exam Vital Signs: Temp Pulse Resp BP Pulse Ox O2 Del Method O2 Flow Rate 97.5 F L 76 18 105/53 L 96 Nasal Cannula 2 07/04/23 12:41 07/04/23 12:41 07/04/23 12:41 07/04/23 12:41 07/04/23 12:41 07/04/23 12:16 07/04/23 12:16 Narrative: General patient laying in bed in [...] no rash or lesions Objective Lab Results 06/30/23 13:04 07/04/23 06:37 Meds Allergies and Active Meds Allergies lisinopril Allergy (Unknown, Verified 06/30/23 12:32) Cough gabapentin Allergy (Verified 06/30/23 12:32) Swelling of Lip/Tongue/Throat Active Meds: Active Medications Generic Name Dose Route Start Last Admin Trade Name Freq PRN Reason Stop Dose Admin Acetaminophen 650 mg 06/30/23 18:02 Acetaminophen 325 Mg Tablet PO 06/29/24 18:01 Q6HR PRN Pain Scale 1 - 3 or fever Acetaminophen 500 mg 07/04/23 06:00 07/04/23 06:46 Acetaminophen 500 Mg Tablet PO 07/07/23 05:59 Not Given Q6H YESSENIA Aspirin 81 mg 05/21/24 09:00 07/03/23 10:33 Aspirin 81 Mg Tablet. PO 06/30/24 08:59 81 mg DAILY YESSENIA Administration Atorvastatin Calcium 40 mg 06/30/23 21:00 07/03/23 21:30 Atorvastatin 40 Mg Tablet PO 06/29/24 20:59 40 mg QPM YESSENIA Administration Bisacodyl 10 mg 06/30/23 18:02 Bisacodyl 5 Mg Tablet. PO 06/29/24 18:01 DAILY PRN Constipation Budesonide/Formoterol Fumarate 2 puff 06/30/23 21:00 07/04/23 12:26 Budesonide/Formoterol 80-4.5 Mcg 60 Puff/6.9 Gm Hfa.Aer.Ad INHALATION 06/29/24 20:59 Not Given BID YESSENIA Buspirone HCl 10 mg 06/30/23 21:00 07/03/23 21:30 Buspirone 10 Mg Tablet PO 06/29/24 20:59 10 mg BID YESSENIA Administration Calcium Acetate 667 mg 07/01/23 08:00 07/04/23 07:35 Calcium Acetate 667 Mg Capsule PO 06/30/24 07:59 Not Given TID.WITH.MEALS YESSENIA Citalopram Hydrobromide 20 mg 07/01/23 09:00 07/03/23 10:34 Citalopram 20 Mg Tablet PO 06/30/24 08:59 20 mg DAILY YESSENIA Administration Dextrose 0 gm 06/30/23 18:07 Dextrose 50% In Water 25 Gm/50 Ml Syringe IV-PUSH 06/29/24 18:06 PRN PRN Hypoglycemia Diclofenac Sodium 4 gm 06/30/23 18:00 07/03/23 21:38 Diclofenac Sodium 1% Gel 100 Gm Tube TOPICAL 06/29/24 17:59 Not Given QID YESSENIA Docusate Sodium 100 mg 06/30/23 21:00 07/03/23 21:30 Docusate 100 Mg Capsule PO 06/29/24 20:59 100 mg BID YESSENIA Administration Glucose 0 gm 06/30/23 18:07 Dextrose 40% Gel 15 Gm Tube PO 06/29/24 18:06 PRN PRN Hypoglycemia Heparin Sodium (Porcine) 5,000 unit 06/30/23 22:00 07/03/23 06:21 Heparin 5,000 Unit/Ml Vial SUBCUT 06/29/24 21:59 5,000 unit Q8HR YESSENIA Administration Heparin Sodium (Porcine) 2,000 unit 07/02/23 08:57 07/02/23 09:58 Heparin 10,000 Unit/10 Ml Vial IV 07/01/24 08:56 2,000 unit PRN PRN Administration Dialysis Heparin Sodium (Porcine) 1,000 unit 07/02/23 08:57 07/02/23 09:59 Heparin 10,000 Unit/10 Ml Vial IV 07/01/24 08:56 1,000 unit PRN PRN Administration Dialysis Hydromorphone HCl 0.5 mg 07/02/23 20:07 07/03/23 10:33 Hydromorphone 0.5 Mg/0.5 Ml Syringe IV-PUSH 0.5 mg Q4H PRN Administration Pain Scale 8 - 10 Hydromorphone HCl 0.5 mg 07/04/23 10:08 07/04/23 12:32 Hydromorphone 0.5 Mg/0.5 Ml Syringe IV-PUSH 07/04/23 13:08 0.5 mg Q5M PRN Administration Pain Sodium Chloride 1,000 mls @ 0 mls/hr 07/02/23 08:57 07/02/23 10:31 0.9% Sodium Chloride 1,000 Ml MISCELLANE 07/01/24 08:56 Infused .Q0M PRN Infusion Dialysis As Directed Dextrose 1,000 mls @ 50 mls/hr 07/02/23 16:30 07/03/23 15:21 5 % Dextrose In Water IV 07/01/24 16:29 50 mls/hr .Q20H YESSENIA Administration Sodium Chloride 500 mls @ 20 mls/hr 07/04/23 08:15 07/04/23 12:26 0.9% Sodium Chloride 500 Ml IV 07/03/24 08:14 20 mls/hr .Q24H YESSENIA Infusion Insulin Aspart 0 units 06/30/23 22:00 07/04/23 07:22 Insulin Aspart 300 Units/3 Ml Insuln.Pen SUBCUT 06/29/24 21:59 3 units TID.WM.HS YESSENIA Administration Protocol Ipratropium [place] 2 mg 06/30/23 20:00 07/04/23 12:26 Ipratropium [place] 0.5 Mg/2.5 Ml Vial.Neb INHALATION 06/29/24 19:59 Not Given QID.RESP YESSENIA Lidocaine 1 patch 06/30/23 21:00 07/03/23 21:31 Lidocaine 4% Adh..Patch TOPICAL 06/29/24 20:59 Not Given BID YESSENIA Lidocaine HCl 0.1 ml 07/04/23 00:00 Lidocaine 1% 50 Ml Vial INTRADERMA PREOP PRN Venipuncture x 1 Dose Loratadine 5 mg 07/01/23 09:00 07/03/23 10:34 Loratadine 10 Mg Tablet PO 06/30/24 08:59 5 mg DAILY YESSENIA Administration Lorazepam 0.25 mg 07/04/23 12:20 Lorazepam 2 Mg/Ml Vial IV-PUSH 12/31/23 12:19 Q6H PRN Pain Lubiprostone 8 mcg 06/30/23 21:00 07/03/23 21:30 Lubiprostone 8 Mcg Capsule PO 06/29/24 20:59 8 mcg BID YESSENIA Administration Melatonin 5 mg 06/30/23 18:02 Melatonin 5 Mg Tablet PO 06/29/24 18:01 QHS PRN Insomnia Metoprolol Tartrate 12.5 mg 07/01/23 09:00 07/04/23 06:47 Metoprolol Tartrate 12.5 Mg Tablet PO 06/30/24 08:59 12.5 mg DAILY YESSENIA Administration Mexiletine HCl 200 mg 06/30/23 22:00 07/04/23 06:46 Mexiletine 200 Mg Capsule PO 06/29/24 21:59 Not Given Q8HR YESSENIA Midodrine 5 mg 06/30/23 17:23 07/02/23 10:32 Midodrine 5 Mg Tablet PO 06/29/24 17:22 5 mg DAILY PRN Administration low bp Midodrine 5 mg 07/01/23 07:00 07/04/23 07:35 Midodrine 5 Mg Tablet PO 06/30/24 06:59 Not Given TID.7A.12P.5P YESSENIA Midodrine 5 mg 07/02/23 08:57 Midodrine 5 Mg Tablet PO 07/01/24 08:56 PRN PRN Dialysis Multivitamins 1 tab 07/01/23 09:00 07/03/23 10:34 Multivitamin 1 Tab Tablet PO 06/30/24 08:59 1 tab DAILY YESSENIA Administration Non-Formulary Medication 0.63 mg 06/30/23 17:23 Albuterol Sulfate INHALATION 06/29/24 17:22 QID PRN Shortness Of Breath Ondansetron HCl 4 mg 06/30/23 17:23 Ondansetron Odt 4 Mg Tab.Rapdis PO 06/29/24 17:22 Q6H PRN Nausea Ondansetron HCl 4 mg 06/30/23 18:02 Ondansetron 4 Mg/2 Ml Vial IV-PUSH 06/29/24 18:01 Q8H PRN Nausea And Vomiting Ondansetron HCl 4 mg 07/04/23 10:08 Ondansetron 4 Mg/2 Ml Vial IV-PUSH 07/04/23 13:08 ONCE PRN Nausea/Vomiting Oxycodone/Acetaminophen 1 tab 06/30/23 18:02 07/01/23 17:05 Oxycodone/Acetaminophen 5-325 Mg Tablet PO 1 tab Q4H PRN Administration Pain Scale 4 - 7 Oxycodone/Acetaminophen 2 tab 06/30/23 23:49 07/02/23 10:53 Oxycodone/Acetaminophen 5-325 Mg Tablet PO 2 tab Q6HR PRN Administration pain Pantoprazole Sodium 40 mg 07/01/23 09:00 07/03/23 10:34 Pantoprazole 40 Mg Tablet.Dr PO 06/30/24 08:59 40 mg DAILY YESSENIA Administration Pramipexole Dihydrochloride 0.5 mg 06/30/23 22:00 07/03/23 21:39 Pramipexole 0.5 Mg Tablet PO 06/29/24 21:59 Not Given HS YESSENIA Pregabalin 50 mg 06/30/23 21:00 07/03/23 21:30 Pregabalin 50 Mg Capsule PO 12/27/23 20:59 50 mg BID YESSENIA Administration Sodium Chloride 0 ml 06/30/23 12:35 07/03/23 09:30 Sodium Chloride 0.9 % 10 Ml Syringe IV-PUSH 06/29/24 12:34 10 ml PRN PRN Administration Flush Sodium Chloride 0 ml 07/02/23 08:57 07/02/23 09:58 Sodium Chloride 0.9 % 10 Ml Syringe IV-PUSH 07/01/24 08:56 10 ml PRN PRN Administration Flush Sodium Chloride 0 ml 07/04/23 00:00 Sodium Chloride 0.9 % 10 Ml Syringe IV-PUSH 07/03/24 00:00 PRN PRN Flush Sodium Chloride 10 ml 07/04/23 12:20 Sodium Chloride 0.9 % 10 Ml Vial.Pf INJECTION 07/03/24 12:19 Q6H PRN Ativan dilution Tizanidine HCl 4 mg 06/30/23 22:00 07/03/23 21:30 Tizanidine 4 Mg Tablet PO 06/29/24 21:59 4 mg QHS YESSENIA Administration Vitamin D 25 mcg 07/01/23 09:00 07/03/23 10:34 Cholecalciferol 25 Mcg (1,000 Units) Tablet PO 06/30/24 08:59 25 mcg DAILY YESSENIA Administration A&P - Hospitalist Assessment/Plan (1) Closed odontoid fracture: (2) Fall: (3) Anxiety and depression: (4) ESRD (end stage renal disease): (5) Diabetes mellitus with insulin therapy: (6) Primary hypertension: Plan Close odontoid fracture Mechanical fall Seen and examined Clinically stable S/p Posterior Cervical Decompression with C1-5 Fixation Dilaudid 0.5 mg every 4 hours as needed Percocet 1 to 2 tablets every 4 hours as needed for pain Neurosurgery is following PT/OT End-stage renal disease: On HD Hypertension: Resume Lopressor Hyperlipidemia: Resume Lipitor CAD: Resume aspirin and Lipitor Depression anxiety: Resume citalopram Foot ulcer: Healing/no fever leukocytosis/x-ray/ no osteo/wound care, Dysphagia: swallow team is following / s/p modified barium study DVT prophylaxis Heparin Documented By: Tatiana Loya MD 07/04/23 1306 Signed By: <Electronically signed by Tatiana Loya MD> 07/04/23 2645 [facility] Work Phone: Progress note Author Narinder Toussaint [facility] July 08, 2023 4:12pm Note Date/Time July 08, 2023 4:12p m [facility] [address] [place] [address] Nephrology Progress Note Signed Patient: Cinthya Wilson MR#: [id number] : 1945 Acct:[id number] Age/Sex: 78 / F Adm Date: 4 Loc: 4N Room: 0X6745-8 Type: ADM IN Attending Dr: Lexi Carlson DO Copies to: ~ Date of Service: 07/08/2023 Subjective Subjective Narrative: This is a 78-year-old female well-known to our service from dialysis unit presented to the emergency room after her dialysis due to the neck pain. 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 Her other comorbidities are CAD s/p PCI, COPD, chronic hypoxic diastolic failure, cardiac arrhythmia s/p AICD and dyslipidemia. She reported a fall 3 days before admission resulted in excruciating neck pain. CT head and neck in ER showed no acute intracranial bleed or stroke, stable carotid plaque and stenosis and occlusion of the right vertebral artery, new fracture at the base of the odontoid. Patient was admitted for further workup and neurosurgery was consulted. Nephrology is consulted for ESRD management during the hospital stay. Interval history Patient had full hemodialysis yesterday. She is sitting up in the chair with the collar. She feels comfortable with no shortness of breath. No nausea or vomiting. She is able to eat and drink. Patient underwent the surgery on 07/04/2023 due to the C2 fracture and L1 fracture. She is being evaluated for rehab placement. Exam Physical Exam Vital Signs: Temp Pulse Resp BP Pulse Ox O2 Del Method O2 Flow Rate 36.6 C 65 18 133/73 100 Room Air 2 07/08/23 11:07/08/23 12:00 07/08/23 12:00 07/08/23 11:07/08/23 11:07/08/23 11:07/08/23 09:04 Narrative: Constitutional: awake with no respiratory distress on room air. HEENT: She has mild pallor. Mucous membranes are moist. Neck: She has a neck collar s/p pedicle screw fixation C1-C2 Cardiovascular: RRR, normal S1-S2, no gallop or rub, No JVD Respiratory: Diminished breath sounds. No crackles or wheezes. Gastrointestinal: Soft, non tender, positive bowel sounds. No palpable organs or masses Extremities: trace edema Skin: No rashes or bruises Neurology: Awake, alert, oriented ?3, No focal motor or sensory deficits. Psych: Normal mood and affect Vascular access: Left arm AV fistula with good thrill. Objective Intake and Output I&O: Intake & Output 07/05/23 07/06/23 07/07/23 07/08/23 23:59 23:59 23:59 23:59 Intake Total 833 / 833 300 / 300 1910 / 1910 630 / 630 Output Total 3501 / 3501 0 / 0 1504 / 1504 0 / 0 Balance -2668 / -2668 300 / 300 406 / 406 630 / 630 Weight 65.7 kg 61.9 kg 68.4 kg 69.3 kg Meds and Allergies Meds: Active Medications Acetaminophen (Acetaminophen 325 Mg Tablet) 650 mg PO Q4H PRN PRN Reason: Mild Pain Stop: 07/03/24 13:28 Aspirin (Aspirin 81 Mg Tablet.) 81 mg PO DAILY YESSENIA Stop: 06/30/24 08:59 Last Admin: 07/08/23 08:28 Dose: 81 mg Atorvastatin Calcium (Atorvastatin 40 Mg Tablet) 40 mg PO QPM YESSENIA Stop: 06/29/24 20:59 Last Admin: 07/07/23 21:08 Dose: 40 mg Bisacodyl (Bisacodyl 5 Mg Tablet.) 10 mg PO DAILY PRN PRN Reason: Constipation Stop: 06/29/24 18:01 Budesonide/Formoterol Fumarate (Budesonide/Formoterol 80-4.5 Mcg 60 Puff/6.9 Gm Hfa.Aer.Ad) 2 puff INHALATION BID YESSENIA Stop: 06/29/24 20:59 Last Admin: 07/08/23 09:02 Dose: 2 puff Buspirone HCl (Buspirone 10 Mg Tablet) 10 mg PO BID YESSENIA Stop: 06/29/24 20:59 Last Admin: 07/08/23 08:28 Dose: 10 mg Calcium Acetate (Calcium Acetate 667 Mg Capsule) 667 mg PO TID.WITH.MEALS YESSENIA Stop: 06/30/24 07:59 Last Admin: 07/08/23 12:02 Dose: 667 mg Citalopram Hydrobromide (Citalopram 20 Mg Tablet) 20 mg PO DAILY YESSENIA Stop: 06/30/24 08:59 Last Admin: 07/08/23 08:28 Dose: 20 mg Diclofenac Sodium (Diclofenac Sodium 1% Gel 100 Gm Tube) 4 gm TOPICAL QID [facility] Stop: 06/29/24 17:59 Last Admin: 07/08/23 14:33 Dose: 4 gm Diphenhydramine HCl (Diphenhydramine 25 Mg Capsule) 25 mg PO Q6H PRN PRN Reason: Itching Stop: 07/03/24 13:28 Docusate Sodium (Docusate 100 Mg Capsule) 100 mg PO BID [facility] Stop: 06/29/24 20:59 Last Admin: 07/08/23 08:27 Dose: 100 mg Famotidine (Famotidine 20 Mg Tablet) 20 mg PO Q48HR [facility] Stop: 07/05/24 20:59 Last Admin: 07/08/23 08:28 Dose: 20 mg Hydromorphone HCl (Hydromorphone 1 Mg/Ml Syringe) 1 mg IV-PUSH Q2H PRN PRN Reason: Pain Last Admin: 07/05/23 00:52 Dose: 1 mg Hydromorphone HCl (Hydromorphone 0.5 Mg/0.5 Ml Syringe) 0.5 mg IV-PUSH Q2H PRN PRN Reason: Pain Last Admin: 07/05/23 11:42 Dose: 0.5 mg Sodium Chloride (0.9% Sodium Chloride 1,000 Ml) 1,000 mls @ 0 mls/hr MISCELLANE.Q0M PRN PRN Reason: Dialysis Stop: 07/04/24 08:30 Last Infusion: 07/07/23 10:52 Dose: Infused Insulin Aspart (Insulin Aspart 300 Units/3 Ml Insuln.Pen) 0 units SUBCUT TID.WM.HS [facility]; Protocol Stop: 06/29/24 21:59 Last Admin: 07/08/23 11:56 Dose: Not Given Ipratropium [place] (Ipratropium [place] 0.5 Mg/2.5 Ml Vial.Neb) 0.5 mg INHALATION QID.RESP [facility] Stop: 06/29/24 19:59 Last Admin: 07/08/23 13:02 Dose: 0.5 mg Lidocaine (Lidocaine 4% Adh..Patch) 1 patch TOPICAL BID [facility] Stop: 06/29/24 20:59 Last Admin: 07/08/23 08:30 Dose: 1 patch Loratadine (Loratadine 10 Mg Tablet) 5 mg PO DAILY YESSENIA Stop: 06/30/24 08:59 Last Admin: 07/08/23 08:28 Dose: 5 mg Lorazepam (Lorazepam 2 Mg/Ml Vial) 0.25 mg IV-PUSH Q6H PRN PRN Reason: Pain Stop: 12/31/23 12:19 Lorazepam (Lorazepam 0.5 Mg Tablet) 0.25 mg PO Q8H PRN PRN Reason: Pain Stop: 12/31/23 13:28 Lubiprostone (Lubiprostone 8 Mcg Capsule) 8 mcg PO BID YESSENIA Stop: 06/29/24 20:59 Last Admin: 07/08/23 08:28 Dose: 8 mcg Melatonin (Melatonin 5 Mg Tablet) 5 mg PO QHS PRN PRN Reason: Insomnia Stop: 06/29/24 18:01 Metoprolol Tartrate (Metoprolol Tartrate 12.5 Mg Tablet) 12.5 mg PO DAILY YESSENIA Stop: 06/30/24 08:59 Last Admin: 07/08/23 08:29 Dose: 12.5 mg Mexiletine HCl (Mexiletine 200 Mg Capsule) 200 mg PO Q8HR YESSENIA Stop: 06/29/24 21:59 Last Admin: 07/08/23 14:33 Dose: 200 mg Midodrine (Midodrine 5 Mg Tablet) 5 mg PO DAILY PRN PRN Reason: low bp Stop: 06/29/24 17:22 Last Admin: 07/02/23 10:32 Dose: 5 mg Midodrine (Midodrine 5 Mg Tablet) 5 mg PO TID.7A.12P.5P YESSENIA Stop: 06/30/24 06:59 Last Admin: 07/08/23 12:02 Dose: 5 mg Midodrine (Midodrine 5 Mg Tablet) 5 mg PO PRN PRN PRN Reason: Dialysis Stop: 07/01/24 08:56 Multivitamins (Multivitamin 1 Tab Tablet) 1 tab PO DAILY YESSENIA Stop: 06/30/24 08:59 Last Admin: 07/08/23 08:28 Dose: 1 tab Non-Formulary Medication (Albuterol Sulfate) 0.63 mg INHALATION QID PRN PRN Reason: Shortness Of Breath Stop: 06/29/24 17:22 Ondansetron HCl (Ondansetron Odt 4 Mg Tab.Rapdis) 4 mg PO Q6H PRN PRN Reason: Nausea Stop: 06/29/24 17:22 Ondansetron HCl (Ondansetron 4 Mg/2 Ml Vial) 4 mg IV-PUSH Q6H PRN PRN Reason: Nausea And Vomiting Stop: 07/03/24 13:28 Oxycodone HCl (Oxycodone Ir 5 Mg Tablet) 5 mg PO Q6HR PRN PRN Reason: Pain Scale 1 - 5 Last Admin: 07/07/23 14:41 Dose: 5 mg Oxycodone HCl (Oxycodone Ir 5 Mg Tablet) 10 mg PO Q6HR PRN PRN Reason: Pain Scale 6 - 10 Last Admin: 07/08/23 10:40 Dose: 10 mg Pramipexole Dihydrochloride (Pramipexole 0.5 Mg Tablet) 0.5 mg PO HS YESSENIA Stop: 06/29/24 21:59 Last Admin: 07/07/23 21:07 Dose: 0.5 mg Pregabalin (Pregabalin 50 Mg Capsule) 50 mg PO BID YESSENIA Stop: 12/27/23 20:59 Last Admin: 07/08/23 08:28 Dose: 50 mg Senna/Docusate Sodium (Sennosides/Docusate 8.6-50mg 1 Tab Tablet) 2 tab PO BID YESSENIA Stop: 07/03/24 20:59 Last Admin: 07/08/23 08:28 Dose: 2 tab Sodium Chloride (Sodium Chloride 0.9 % 10 Ml Vial.Pf) 10 ml INJECTION Q6H PRN PRN Reason: Ativan dilution Stop: 07/03/24 12:19 Last Admin: 07/04/23 22:13 Dose: 10 ml Sodium Chloride (Sodium Chloride 0.9 % 10 Ml Syringe) 0 ml IV-PUSH PRN PRN PRN Reason: Flush Stop: 07/04/24 08:30 Last Admin: 07/07/23 10:51 Dose: 10 ml Vitamin D (Cholecalciferol 25 Mcg (1,000 Units) Tablet) 25 mcg PO DAILY YESSENIA Stop: 06/30/24 08:59 Last Admin: 07/08/23 08:28 Dose: 25 mcg Allergies lisinopril Allergy (Unknown, Verified 06/30/23 12:32) Cough gabapentin Allergy (Verified 06/30/23 12:32) Swelling of Lip/Tongue/Throat Results - Nephrology Labs 07/08/23 06:58 07/08/23 06:58 Labs: 07/07/23 07/08/23 16:01 06:58 BUN 15 D 28 H Creatinine 2.11 H D 2.96 H D Radiology Impressions Impressions - last 24 hours: Any impression(s) listed above is documentation that was entered by the reading physician into a diagnostic report(s) for Cinthya Wilson. I have reviewed the report(s) and am incorporating any findings in the treatment plan of this patient where applicable. 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 She currently goes to the [facility] dialysis unit on MWF schedule. (2) Odontoid fracture: Assessment/Problem Details: Patient presents after a fall and was found to have odontoid fracture. She underwent the surgery on 07/04/2023. (3) Type 2 diabetes mellitus with diabetic chronic kidney disease: Assessment/Problem Details: She has insulin-dependent type 2 diabetes mellitus. (4) Secondary hyperparathyroidism: Assessment/Problem Details: She has secondary hyperparathyroidism due to the ESRD and hyperphosphatemia. She currently takes calcium acetate at home. 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 She takes midodrine for intradialytic hypotension. Plan * Patient looks euvolemic. Normal blood pressure. No hyperkalemia or acidosis. Next hemodialysis will be tomorrow * Patient is being evaluated for rehab placement * Hemoglobin is within the goal. She has adequate iron stores. Erythropoietin will be started if hemoglobin drops below 9.5 per * Continue DM management as per the primary hospitalist team. * Continue midodrine for intradialytic hypotension. * Continue home dose of the calcium acetate. Monitor renal panel and CBC 3 times a week before dialysis on MWF to adjust medications and dialysis prescriptions as indicated. Documented By: Narinder Toussaint MD 07/08/23 6060 Signed By: <Electronically signed by MD Narinder Toussaint> 07/08/23 161 [facility] Work Phone: Summary Purpose Family [...] Unknown father Unknown family member Unknown Unknown Relationship Condition Age at Onset Recorded Date/T jenelle father Heart disease Unknown Malignant neoplasm Unknown Unknown Not Specified Diabetes mellitus Unknown brother Malignant neoplasm Unknown Relationship Condition Age at Onset Recorded Date/T jenelle father Heart disease Unknown Malignant neoplasm Unknown Unknown mother Diabetes mellitus Unknown brother Malignant neoplasm Unknown Advance Directives No Advanced Directives Records Found Advance Directive Response Recorded Date/ Time Advance Directives Yes November 29, 2019 12:53pm Advance Directive Response Recorded Date/ Time Advance Directives Yes November 29, 2019 11:53am Hospital Course Note MR#: [id number] [facility] Pt. Name: Cinthya Wilson Admitted: 10/08/2019 Discharged: 10/14/2019 Date of : 1945 Physician: Yovani Ayon MD DISCHARGE SUMMARY FINAL DIAGNOSES: 1. Algrn-vs-sddipmk diastolic heart failure exacerbation. 2. Pdpuf-mi-ewdkpzt kidney disease with acute kidney injury. 3. Uncontrolled diabetes, insulin dependent with hypoglycemia. 4. Coronary artery disease status post stent. 5. Hypertension. 6. Hyperlipidemia. 7. Depression. 8. Chronic anemia. HOSPITAL COURSE: The patient was admitted to Medicine Service Step-down with [id number] diastolic heart failure. Cardiology was consulted. IV [...] Complaint ESRD weakness Weakness Weakness Weakness Weakness Unknown lugo Reason for Visit Syncope ESRD on dialysis Generalized weakness Hypokalemia Hypomagnesemia Hypotension Seizure-like activity Ventricular tachycardia, sustained Acute hyperkalemia Diplopia Fluid overload Neck pain Visual changes Chief Complaint weakness Weakness Weakness Weakness Weakness Unknown lugo [id number] Reason for Visit Syncope ESRD on dialysis Generalized weakness Hypokalemia Hypomagnesemia Hypotension Seizure-like activity Ventricular tachycardia, sustained Acute hyperkalemia Diplopia Fluid overload Neck pain Visual changes Chief Complaint Weakness Unknown lugo z86.73 CAR STENOSIS Low BP Reason for Visit Carotid stenosis, bi lateral Chronic hypoxemic respiratory failure COPD (chronic obstructive pulmonary disease) Acute hyperkalemia Diplopia Fluid overload Neck pain Visual changes Carotid stenosis, bilateral Acute electrocardiogram changes Anxiety and depression Closed odontoid fracture Diabetes mellitus with insulin therapy ESRD (end stage renal disease) Fall Odontoid fracture Osteomyelitis Primary hypertension Stenosis of right vertebral artery Troponin level elevated Chief Complaint Unknown lugo z86.73 CAR STENOSIS Low BP Low BP Low BP Low BP Low BP Low BP Low BP Reason for Visit Carotid stenosis, bi lateral Anemia of renal disease Atrial fibrillation CAD (coronary artery disease) Chronic hypotension Chronic hypoxemic respiratory failure Closed odontoid fracture COPD (chronic obstructive pulmonary disease) Diabetes mellitus with insulin therapy ESRD (end stage renal disease) Fall Odontoid fracture Odontoid fracture with type II morphology Primary hypertension Secondary hyperparathyroidism Sleep apnea Stenosis of right vertebral artery Systolic and diastolic CHF, acute on chronic Troponin level elevated Type 2 diabetes mellitus with diabetic chronic kidney disease Chief Complaint lugo z86.73 CAR STENOSIS Low BP Low BP Low BP Low BP Low BP Low BP Low BP C2 Fx s/p C1-3 Fixation C2 Fx s/p C1-3 Fixation C2 Fx s/p C1-3 Fixation C2 Fx s/p C1-3 Fixation C2 Fx s/p C1-3 Fixation Reason for Visit Carotid stenosis, bi lateral Anemia of renal disease Atrial fibrillation CAD (coronary artery disease) Chronic hypotension Chronic hypoxemic respiratory failure Closed odontoid fracture COPD (chronic obstructive pulmonary disease) Diabetes mellitus with insulin therapy ESRD (end stage renal disease) Odontoid fracture Odontoid fracture with type II morphology Primary hypertension Secondary hyperparathyroidism Sleep apnea Stenosis of right vertebral artery Systolic and diastolic CHF, acute on chronic Type 2 diabetes mellitus with diabetic chronic kidney disease Fall Troponin level elevated Anemia of renal disease CAD (coronary artery disease) Cardiomyopathy Chronic hypotension Cognitive communication deficit COPD (chronic obstructive pulmonary disease) Diplopia ESRD (end stage renal disease) Impaired mobility and activities of daily living Odontoid fracture Odontoid fracture with type II morphology Oropharyngeal dysphagia Secondary hyperparathyroidism Type 2 diabetes mellitus with diabetic chronic kidney disease Chief Complaint lugo z86.73 CAR STENOSIS Low BP Low BP Low BP Low BP Low BP Low BP Low BP C2 Fx s/p C1-3 Fixation C2 Fx s/p C1-3 Fixation C2 Fx s/p C1-3 Fixation C2 Fx s/p C1-3 Fixation C2 Fx s/p C1-3 Fixation ER f/u 2 wk po fusion staple removal Reason for Visit Carotid stenosis, bi lateral Anemia of renal disease Atrial fibrillation CAD (coronary artery disease) Chronic hypotension Chronic hypoxemic respiratory failure Closed odontoid fracture COPD (chronic obstructive pulmonary disease) Diabetes mellitus with insulin therapy ESRD (end stage renal disease) Odontoid fracture Odontoid fracture with type II morphology Primary hypertension Secondary hyperparathyroidism Sleep apnea Stenosis of right vertebral artery Systolic and diastolic CHF, acute on chronic Type 2 diabetes mellitus with diabetic chronic kidney disease Fall Troponin level elevated Anemia of renal disease CAD (coronary artery disease) Cardiomyopathy Chronic hypotension Cognitive communication deficit COPD (chronic obstructive pulmonary disease) Diplopia ESRD (end stage renal disease) Impaired mobility and activities of daily living Odontoid fracture Odontoid fracture with type II morphology Oropharyngeal dysphagia Secondary hyperparathyroidism Type 2 diabetes mellitus with diabetic chronic kidney disease Odontoid fracture with type II morphology Chief Complaint z86.73 CAR STENOSIS Low BP Low BP Low BP Low BP Low BP Low BP Low BP C2 Fx s/p C1-3 Fixation C2 Fx s/p C1-3 Fixation C2 Fx s/p C1-3 Fixation C2 Fx s/p C1-3 Fixation C2 Fx s/p C1-3 Fixation ER f/u 2 wk po fusion staple removal Low pulse ox Reason for Visit Carotid stenosis, bi lateral Anemia of renal disease Atrial fibrillation CAD (coronary artery disease) Chronic hypotension Chronic hypoxemic respiratory failure Closed odontoid fracture COPD (chronic obstructive pulmonary disease) Diabetes mellitus with insulin therapy ESRD (end stage renal disease) Odontoid fracture Odontoid fracture with type II morphology Primary hypertension Secondary hyperparathyroidism Sleep apnea Stenosis of right vertebral artery Systolic and diastolic CHF, acute on chronic Type 2 diabetes mellitus with diabetic chronic kidney disease Fall Troponin level elevated Anemia of renal disease CAD (coronary artery disease) Cardiomyopathy Chronic hypotension COPD (chronic obstructive pulmonary disease) Diplopia ESRD (end stage renal disease) Impaired mobility and activities of daily living Odontoid fracture Odontoid fracture with type II morphology Oropharyngeal dysphagia Secondary hyperparathyroidism Type 2 diabetes mellitus with diabetic chronic kidney disease Cognitive communication deficit Odontoid fracture with type II morphology Chief Complaint CAR STENOSIS Low BP Low BP Low BP Low BP Low BP Low BP Low BP C2 Fx s/p C1-3 Fixation C2 Fx s/p C1-3 Fixation C2 Fx s/p C1-3 Fixation C2 Fx s/p C1-3 Fixation C2 Fx s/p C1-3 Fixation ER f/u 2 wk po fusion staple removal Low pulse ox M48.02 2 month post op PCD Reason for Visit Carotid stenosis, bi lateral Anemia of renal disease Atrial fibrillation CAD (coronary artery disease) Chronic hypotension Chronic hypoxemic respiratory failure Closed odontoid fracture COPD (chronic obstructive pulmonary disease) Diabetes mellitus with insulin therapy ESRD (end stage renal disease) Odontoid fracture Odontoid fracture with type II morphology Primary hypertension Secondary hyperparathyroidism Sleep apnea Stenosis of right vertebral artery Systolic and diastolic CHF, acute on chronic Type 2 diabetes mellitus with diabetic chronic kidney disease Fall Troponin level elevated Anemia of renal disease CAD (coronary artery disease) Cardiomyopathy Chronic hypotension COPD (chronic obstructive pulmonary disease) Diplopia ESRD (end stage renal disease) Impaired mobility and activities of daily living Odontoid fracture Odontoid fracture with type II morphology Oropharyngeal dysphagia Secondary hyperparathyroidism Type 2 diabetes mellitus with diabetic chronic kidney disease Cognitive communication deficit Odontoid fracture with type II morphology Chief Complaint CAR STENOSIS Low BP Low BP Low BP Low BP Low BP Low BP Low BP C2 Fx s/p C1-3 Fixation C2 Fx s/p C1-3 Fixation C2 Fx s/p C1-3 Fixation C2 Fx s/p C1-3 Fixation C2 Fx s/p C1-3 Fixation ER f/u 2 wk po fusion staple removal Low pulse ox M48.02 2 month post op PCD Reason for Visit Carotid stenosis, bi lateral Anemia of renal disease Atrial fibrillation CAD (coronary artery disease) Chronic hypotension Chronic hypoxemic respiratory failure Closed odontoid fracture COPD (chronic obstructive pulmonary disease) Diabetes mellitus with insulin therapy ESRD (end stage renal disease) Odontoid fracture Odontoid fracture with type II morphology Primary hypertension Secondary hyperparathyroidism Sleep apnea Stenosis of right vertebral artery Systolic and diastolic CHF, acute on chronic Type 2 diabetes mellitus with diabetic chronic kidney disease Fall Troponin level elevated Anemia of renal disease CAD (coronary artery disease) Cardiomyopathy Chronic hypotension COPD (chronic obstructive pulmonary disease) Diplopia ESRD (end stage renal disease) Impaired mobility and activities of daily living Odontoid fracture Odontoid fracture with type II morphology Oropharyngeal dysphagia Secondary hyperparathyroidism Type 2 diabetes mellitus with diabetic chronic kidney disease Cognitive communication deficit Odontoid fracture with type II morphology Odontoid fracture with type II morphology Chief Complaint Low BP Low BP Low BP Low BP Low BP Low BP Low BP C2 Fx s/p C1-3 Fixation C2 Fx s/p C1-3 Fixation C2 Fx s/p C1-3 Fixation C2 Fx s/p C1-3 Fixation C2 Fx s/p C1-3 Fixation ER f/u 2 wk po fusion staple removal Low pulse ox M48.02 2 month post op PCD S12.110A Reason for Visit Anemia of renal dise ase Atrial fibrillation CAD (coronary artery disease) Chronic hypotension Chronic hypoxemic respiratory failure Closed odontoid fracture COPD (chronic obstructive pulmonary disease) Diabetes mellitus with insulin therapy ESRD (end stage renal disease) Odontoid fracture Odontoid fracture with type II morphology Primary hypertension Secondary hyperparathyroidism Sleep apnea Stenosis of right vertebral artery Systolic and diastolic CHF, acute on chronic Type 2 diabetes mellitus with diabetic chronic kidney disease Fall Troponin level elevated Anemia of renal disease CAD (coronary artery disease) Cardiomyopathy Chronic hypotension COPD (chronic obstructive pulmonary disease) Diplopia ESRD (end stage renal disease) Impaired mobility and activities of daily living Odontoid fracture Odontoid fracture with type II morphology Oropharyngeal dysphagia Secondary hyperparathyroidism Type 2 diabetes mellitus with diabetic chronic kidney disease Cognitive communication deficit Odontoid fracture with type II morphology Odontoid fracture with type II morphology Chief Complaint Low BP Low BP Low BP Low BP Low BP Low BP Low BP C2 Fx s/p C1-3 Fixation C2 Fx s/p C1-3 Fixation C2 Fx s/p C1-3 Fixation C2 Fx s/p C1-3 Fixation C2 Fx s/p C1-3 Fixation ER f/u 2 wk po fusion staple removal Low pulse ox M48.02 2 month post op PCD S12.110A weakness Reason for Visit Anemia of renal dise ase Atrial fibrillation CAD (coronary artery disease) Chronic hypotension Chronic hypoxemic respiratory failure Closed odontoid fracture COPD (chronic obstructive pulmonary disease) Diabetes mellitus with insulin therapy ESRD (end stage renal disease) Odontoid fracture Odontoid fracture with type II morphology Primary hypertension Secondary hyperparathyroidism Sleep apnea Stenosis of right vertebral artery Systolic and diastolic CHF, acute on chronic Type 2 diabetes mellitus with diabetic chronic kidney disease Fall Troponin level elevated Anemia of renal disease CAD (coronary artery disease) Cardiomyopathy Chronic hypotension COPD (chronic obstructive pulmonary disease) Diplopia ESRD (end stage renal disease) Impaired mobility and activities of daily living Odontoid fracture Odontoid fracture with type II morphology Oropharyngeal dysphagia Secondary hyperparathyroidism Type 2 diabetes mellitus with diabetic chronic kidney disease Cognitive communication deficit Odontoid fracture with type II morphology Odontoid fracture with type II morphology Chief Complaint C2 Fx s/p C1-3 Fixat ion C2 Fx s/p C1-3 Fixation C2 Fx s/p C1-3 Fixation ER f/u 2 wk po fusion staple removal Low pulse ox M48.02 2 month post op PCD S12.110A weakness 3 mo po PCD w/x-ray Reason for Visit Anemia of renal dise ase CAD (coronary artery disease) Cardiomyopathy Chronic hypotension COPD (chronic obstructive pulmonary disease) Diplopia ESRD (end stage renal disease) Impaired mobility and activities of daily living Odontoid fracture Odontoid fracture with type II morphology Oropharyngeal dysphagia Secondary hyperparathyroidism Type 2 diabetes mellitus with diabetic chronic kidney disease Cognitive communication deficit Odontoid fracture with type II morphology Odontoid fracture with type II morphology Assessments No Assessments Information Available Additional Source Comments INFORMATION SOURCE (unrecogn ized section and content) DATE CREATED AUTHOR 10/26/2019 [facility] DATE CREATED AUTHOR AUTHOR'S ORGANIZ ATION 03/06/2021 [facility] DATE CREATED AUTHOR AUTHOR'S ORGANIZ ATION 03/23/2021 [facility] DATE CREATED AUTHOR AUTHOR'S ORGANIZ ATION 07/27/2021 [facility] DATE CREATED AUTHOR AUTHOR'S ORGANIZ ATION 06/07/2022 [facility] DATE CREATED AUTHOR AUTHOR'S ORGANIZ ATION 08/24/2022 [facility] DATE CREATED AUTHOR AUTHOR'S ORGANIZ ATION 12/15/2022 [facility] DATE CREATED AUTHOR AUTHOR'S ORGANIZ ATION 07/07/2023 [facility] DATE CREATED AUTHOR AUTHOR'S ORGANIZ ATION 09/23/2023 [facility] DATE CREATED AUTHOR AUTHOR'S ORGANIZ ATION 09/30/2023 [facility] DATE CREATED AUTHOR AUTHOR'S ORGANIZ ATION 10/01/2023 [facility] DATE CREATED AUTHOR AUTHOR'S ORGANIZ ATION 10/02/2023 [facility] DATE CREATED AUTHOR AUTHOR'S ORGANIZ ATION 10/03/2023 [facility] DATE CREATED AUTHOR AUTHOR'S ORGANIZ ATION 10/04/2023 [facility] DATE CREATED AUTHOR AUTHOR'S ORGANIZ ATION 10/05/2023 [facility] DATE CREATED AUTHOR AUTHOR'S ORGANIZ ATION 10/07/2023 [facility] DATE CREATED AUTHOR AUTHOR'S ORGANIZ ATION 10/07/2023 [facility] DATE CREATED AUTHOR AUTHOR'S ORGANIZ ATION 10/09/2023 [facility] DATE CREATED AUTHOR AUTHOR'S ORGANIZ ATION 10/23/2023 [facility] DATE CREATED AUTHOR AUTHOR'S ORGANIZ ATION 11/05/2023 [facility] DATE CREATED AUTHOR AUTHOR'S ORGANIZ ATION 11/07/2023 [facility] REASON FOR VISIT (unrecogniz ed section and content) RENAL 2 month Follow up CKD IV and CHFRENAL 4 month follow upREF BY DR GRAHAM FOR AV FISTULA, PATIENT HAVING VEIN MAPPING [...] Status: Active Member Role Status Dates Lily Del Real II MD Primary Care Provider Active Team Status: Inactive Member Role Status Dates Lily Del Real II MD Primary Care Provider Active Start: July 08, 2023 End: July 22, 2023 Quintin Johnson MD Admit Provider, Attel muhammading Provider Active Start: July 08, 2023 End: July 22, 2023 Melina Aponte , MED Other Provider Active Star t: July 08, 2023 End: July 22, 2023 Maddie Shah , MED Other Provider Active Start : July 08, 2023 End: July 22, 2023 Ashley Moran , MED Other Provider Active Star t: July 08, 2023 End: July 22, 2023 Maddie Braxton , MED Other Provider Active Start: Braeden calderon 2023 End: July 22, 2023 Zuleyka Simmons , MED Other Provider Active Start: Christie walls 2023 End: July 22, 2023 Annette Tenorio MD Other Provider Active Start: July 08, 2023 End: July 22, 2023 Ann Jj DO Other Provider Active Start : July 08, 2023 End: July 22, 2023 Cesario Clifford MD Other Provider Active Start : July 08, 2023 End: July 22, 2023 Carlton Mtz DO Other Provider Active Start: July 08, 2023 End: July 22, 2023 Jamal Scheafer MD Other Provider Active Start: July 08, 2023 End: July 22, 2023 Venecia Hawkins MD Other Provider Active Start : July 08, 2023 End: July 22, 2023 Mendoza Seth MD Other Provider Active Start: M ay 2023 End: July 22, 2023 Nataliya Herzog APRN Other Provider Active Start: July 08, 2023 End: July 22, 2023 Gabrielle Griffiths MD Other Provider Active Start: July 08, 2023 End: July 22, 2023 Zev Morgan MD Other Provider Active Start: M ay 2023 End: July 22, 2023 Teresa Pagan MD Other Provider Active Start: July 08, 2023 End: July 22, 2023 Erica Armenta MD Other Provider Active Start: July 08, 2023 End: July 22, 2023 Pennie Love DO Other Provider Active Start: July 08, 2023 End: July 22, 2023 Simone Godoy MD Other Provider Active Start: Ma y 2023 End: July 22, 2023 Slick Cohn MD Other Provider Active Start: July 08, 2023 End: July 22, 2023 ALBERTO SandovalC Other Provider Active St art: July 08, 2023 End: July 22, 2023 Johnny Tan APRN Other Provider Active Star t: July 08, 2023 End: July 22, 2023 Celestino Bhagat MD Other Provider Active Start: July 08, 2023 End: July 22, 2023 Christiano Quezada MD Other Provider Active Start: Ma y 2023 End: July 22, 2023 Alphonse Medina MD Other Provider Active Start: July 08, 2023 End: July 22, 2023 Gretchen Dickens MD Other Provider Active Star t: July 08, 2023 End: July 22, 2023 Charles Dixon MD Other Provider Active Start: M ay 2023 End: July 22, 2023 Marjorie Meehan DO Other Provider Active Start: Christie y 2023 End: July 22, 2023 Reese Frye DO Other Provider Active Start : July 08, 2023 End: July 22, 2023 Edie Ferrera APRN Other Provider Active Start: July 08, 2023 End: July 22, 2023 Davide Rice , Other Provider Active Start: July 08, 2023 End: July 22, 2023 Gary Almaguer MD Other Provider Active Sta rt: July 08, 2023 End: July 22, 2023 Malika Arreaga APRN Other Provider Active Start : July 08, 2023 End: July 22, 2023 Luba Cardenas APRN Other Provider Active St art: July 08, 2023 End: July 22, 2023 Tatiana Loya MD Other Provider Active Start: 2023 End: July 22, 2023 Lily Zhang MD Other Provider Active S tart: July 08, 2023 End: July 22, 2023 Eric Thomas , DO Other Provider Active Star t: July 08, 2023 End: July 22, 2023 Lexi Carlson DO Other Provider Active Start: July 08, 2023 End: July 22, 2023 Angel Medina MD Other Provider Active Start: July 08, 2023 End: July 22, 2023 Lois Up RN Other Provider Active Start: ay 2023 End: July 22, 2023 Narinder Toussaint MD Other Provider Active Start: ay 2023 End: July 22, 2023 FERNANDO Roblero Other Provider Active Start: July 08, 2023 End: July 22, 2023 Wood Zavala MD Other Provider Active Start: Christie walls 2023 End: July 22, 2023 Geronimo Graham MD Other Provider Active Start: M ay 2023 End: July 22, 2023 Swati Velazquez Other Provider Active Start: July 08, 2023 End: July 22, 2023 Amanda Barron DO Other Provider Active Start: July 08, 2023 End: July 22, 2023 Zeke Whitman MD Other Provider Active Start : July 08, 2023 End: July 22, 2023 Jeannie Guillermo DO Other Provider Active Start: July 08, 2023 End: July 22, 2023 Elisabet Meade , ANP-BC Other Provider Active Start: July 08, 2023 End: July 22, 2023 Danny Mcclelland DO Other Provider Active Start: July 08, 2023 End: July 22, 2023 Krista Greene , ROSTER CLERK Other Provider Active St art: July 08, 2023 End: July 22, 2023 Myla Pierre , MATERIAL LOADER-C Other Provider Active Sta rt: July 08, 2023 End: July 22, 2023 Xiomara Giles , ROSTER CLERK-COMPUTATIONAL THEORY SCIENTIST-C Other Provider Active Start: July 08, 2023 End: July 22, 2023 Team Status: Active Member Role Status Dates Lily Del Real II MD Primary Care Provider Active Start: July 16, 2023 End: July 22, 2023 Quintin Johnson MD Admit Provider, Othe r Provider Active Start: July 16, 2023 End: July 22, 2023 Melina Aponte , MED Other Provider Active Star t: July 16, 2023 End: July 22, 2023 Maddie Shah , MED Other Provider Active Start : July 16, 2023 End: July 22, 2023 Ashley Moran , MED Other Provider Active Star t: July 16, 2023 End: July 22, 2023 Maddie Braxton , MED Other Provider Active Start: 2023 End: July 22, 2023 Zuleyka Simmons , MED Other Provider Active Start: 2023 End: July 22, 2023 Annette Tenorio MD Other Provider Active Start: July 16, 2023 End: July 22, 2023 Ann Jj DO Other Provider Active Start : July 16, 2023 End: July 22, 2023 Cesario Clifford MD Other Provider Active Start : July 16, 2023 End: July 22, 2023 Carlton Mtz DO Other Provider Active Start: July 16, 2023 End: July 22, 2023 Jamal Schaefer MD Other Provider Active Start: July 16, 2023 End: July 22, 2023 Venecia Hawkins MD Other Provider Active Start : July 16, 2023 End: July 22, 2023 Mendoza Seth MD Other Provider Active Start: 2023 End: July 22, 2023 Nataliya Herzog APRN Other Provider Active Start: July 16, 2023 End: July 22, 2023 Gabrielle Griffiths MD Other Provider Active Start: July 16, 2023 End: July 22, 2023 Zev Morgan MD Other Provider Active Start: 2023 End: July 22, 2023 Teresa Pagan MD Other Provider Active Start: July 16, 2023 End: July 22, 2023 Erica Armenta MD Other Provider Active Start: July 16, 2023 End: July 22, 2023 Pennie Love DO Other Provider Active Start: July 16, 2023 End: July 22, 2023 Simone Godoy MD Other Provider Active Start: 2023 End: July 22, 2023 Slick Cohn MD Other Provider Active Start: Jul End: July 22, 2023 FERNANDO Sandoval Other Provider Active St art: July 16, 2023 End: July 22, 2023 Johnny Tan APRN Other Provider Active Star t: July 16, 2023 End: July 22, 2023 Celestino Bhagat MD Other Provider Active Start: July 16, 2023 End: July 22, 2023 Christiano Quezada MD Other Provider Active Start: 2023 End: July 22, 2023 Alphonse Medina MD Other Provider Active Start: Jul End: July 22, 2023 Gretchen Dickens MD Other Provider Active Star t: July 16, 2023 End: July 22, 2023 Charles Dixon MD Other Provider Active Start: 2023 End: July 22, 2023 Marjorie Meehan DO Other Provider Active Start: 2023 End: July 22, 2023 Reese Frye DO Other Provider Active Start : July 16, 2023 End: July 22, 2023 Edie Ferrera APRN Other Provider Active Start: July 16, 2023 End: July 22, 2023 Davide Rice , Other Provider Active Start: July 16, 2023 End: July 22, 2023 Gary Almaguer MD Other Provider Active Sta rt: July 16, 2023 End: July 22, 2023 Malika Arreaga APRN Other Provider Active Start : July 16, 2023 End: July 22, 2023 Luba Cardenas APRN Other Provider Active St art: July 16, 2023 End: July 22, 2023 Tatiana Loya MD Other Provider Active Start: J une 2023 End: July 22, 2023 Lily Zhang MD Other Provider Active S tart: July 16, 2023 End: July 22, 2023 Eric Thomas , Other Provider Active Star t: July 16, 2023 End: July 22, 2023 Lexi Carlson DO Other Provider Active Start: July 16, 2023 End: July 22, 2023 Angel Medina MD Other Provider Active Start: July 16, 2023 End: July 22, 2023 Lois Up RN Other Provider Active Start: J une 2023 End: July 22, 2023 Narinder Toussaint MD Other Provider Active Start: J une 2023 End: July 22, 2023 FERNANDO Roblero Other Provider Active Start: July 16, 2023 End: July 22, 2023 Wood Zavala MD Other Provider Active Start: Ju ne 2023 End: July 22, 2023 Geronimo Graham MD Attending Provider, Other Provider Active Start: July 16, 2023 End: July 22, 2023 Swati Velazquez Other Provider Active Start: July 16, 2023 End: July 22, 2023 Amanda Barron DO Other Provider Active Start: July 16, 2023 End: July 22, 2023 Zeke Whitman MD Other Provider Active Start : July 16, 2023 End: July 22, 2023 Jeannie Guillermo DO Other Provider Active Start: July 16, 2023 End: July 22, 2023 Elisabet Meade ANP-BC Other Provider Active Start: July 16, 2023 End: July 22, 2023 Danny cMclelland DO Other Provider Active Start: July 16, 2023 End: July 22, 2023 Krista Greene APRN Other Provider Active St art: July 16, 2023 End: July 22, 2023 Myla Pierre , MATERIAL LOADER-C Other Provider Active Sta rt: July 16, 2023 End: July 22, 2023 Xiomara Giles , ROSTER CLERK-COMPUTATIONAL THEORY SCIENTIST-C Other Provider Active Start: July 16, 2023 End: July 22, 2023 Team Status: Active Member Role Status Dates Lily Del Real II MD Primary Care Provider Active Start: July 17, 2023 End: July 22, 2023 Quintin Johnson MD Admit Provider, Atte nding Provider, Other Provider Active Start: July 17, 2023 End: July 22, 2023 Melina Aponte , MED Other Provider Active Star t: July 17, 2023 End: July 22, 2023 Maddie Shah , MED Other Provider Active Start : July 17, 2023 End: July 22, 2023 Ashley Moran , MED Other Provider Active Star t: July 17, 2023 End: July 22, 2023 Maddie Braxton , MED Other Provider Active Start: J une 2023 End: July 22, 2023 Zuleyka Simmons , RN Other Provider Active Start: Teresita desouza 2023 End: July 22, 2023 Annette Tenorio MD Other Provider Active Start: July 17, 2023 End: July 22, 2023 Ann Jj DO Other Provider Active Start : July 17, 2023 End: July 22, 2023 Cesario Clifford MD Other Provider Active Start : July 17, 2023 End: July 22, 2023 Carlton Mtz DO Other Provider Active Start: July 17, 2023 End: July 22, 2023 Jamal Schaefer MD Other Provider Active Start: July 17, 2023 End: July 22, 2023 Venecia Hawkins MD Other Provider Active Start : July 17, 2023 End: July 22, 2023 Mendoza Seth MD Other Provider Active Start: J une 2023 End: July 22, 2023 Nataliya Herzog APRN Other Provider Active Start: July 17, 2023 End: July 22, 2023 Gabrielle Griffiths MD Other Provider Active Start: July 17, 2023 End: July 22, 2023 Zev Morgan MD Other Provider Active Start: 2023 End: July 22, 2023 Teresa Pagan MD Other Provider Active Start: July 17, 2023 End: July 22, 2023 Erica Armenta MD Other Provider Active Start: July 17, 2023 End: July 22, 2023 Pennie Love DO Other Provider Active Start: July 17, 2023 End: July 22, 2023 Simone Godoy MD Other Provider Active Start: 2023 End: July 22, 2023 Slick Cohn MD Other Provider Active Start: Jul End: July 22, 2023 Marilyn Daniels NP-C Other Provider Active St art: July 17, 2023 End: July 22, 2023 Johnny Tan APRN Other Provider Active Star t: July 17, 2023 End: July 22, 2023 Celestino Bhagat MD Other Provider Active Start: July 17, 2023 End: July 22, 2023 Christiano Quezada MD Other Provider Active Start: 2023 End: July 22, 2023 Alphonse Medina MD Other Provider Active Start: Jul End: July 22, 2023 Gretchen Dickens MD Other Provider Active Star t: July 17, 2023 End: July 22, 2023 Charles Dixon MD Other Provider Active Start: 2023 End: July 22, 2023 Marjorie Meehan DO Other Provider Active Start: 2023 End: July 22, 2023 Reese Frye DO Other Provider Active Start : July 17, 2023 End: July 22, 2023 Edie Ferrera APRN Other Provider Active Start: July 17, 2023 End: July 22, 2023 Davide Rice DO Other Provider Active Start: July 17, 2023 End: July 22, 2023 Gary Almaguer MD Other Provider Active Sta rt: July 17, 2023 End: July 22, 2023 Malika Arreaga APRN Other Provider Active Start : July 17, 2023 End: July 22, 2023 Luba Cardensa APRN Other Provider Active St art: July 17, 2023 End: July 22, 2023 Tatiana Loya MD Other Provider Active Start: J une 2023 End: July 22, 2023 Lily Zhang MD Other Provider Active S tart: July 17, 2023 End: July 22, 2023 Eric Thomas , DO Other Provider Active Star t: July 17, 2023 End: July 22, 2023 Lexi Carlson , DO Other Provider Active Start: July 17, 2023 End: July 22, 2023 Angel Medina MD Other Provider Active Start: July 17, 2023 End: July 22, 2023 Lois Up RN Other Provider Active Start: 2023 End: July 22, 2023 Narinder Toussaint MD Other Provider Active Start: J une 2023 End: July 22, 2023 Lyndsay Hernandez NP-C Other Provider Active Start: July 17, 2023 End: July 22, 2023 Wood Zavala MD Other Provider Active Start: Teresita ne 2023 End: July 22, 2023 Geronimo Graham MD Other Provider Active Start: J une 2023 End: July 22, 2023 Swati Velazquez Other Provider Active Start: July 17, 2023 End: July 22, 2023 Amanda Barron DO Other Provider Active Start: July 17, 2023 End: July 22, 2023 Zeke Whitman MD Other Provider Active Start : July 17, 2023 End: July 22, 2023 Jeannie Guillermo , Other Provider Active Start: July 17, 2023 End: July 22, 2023 HAILEY Sorto-BC Other Provider Active Start: July 17, 2023 End: July 22, 2023 Danny Mcclelland DO Other Provider Active Start: July 17, 2023 End: July 22, 2023 Krista Greene APRN Other Provider Active St art: July 17, 2023 End: July 22, 2023 Myla Pierre NP-C Other Provider Active Sta rt: July 17, 2023 End: July 22, 2023 Xiomara Giles , NELI-COMPUTATIONAL THEORY SCIENTIST-C Other Provider Active Start: July 17, 2023 End: July 22, 2023 Team Status: Inactive Member Role Status Lalita Del Real II MD Primary Care Provider Active Start: July 24, 2023 End: July 24, 2023 Seth Weiss MD Attending Provider Active Star t: July 24, 2023 End: July 24, 2023 Team Status: Inactive Member Role Status Dates Constantine Perdomo PA-C Emergency Provider Active Start: August 01, 2023 End: August 01, 2023 Lily Del Real II MD Primary Care Provider Active Start: August 01, 2023 End: August 01, 2023 Team Status: Active Member Role Status Lalita Del Real II MD Primary Care Provider Active Start: August 04, 2023 Geronimo Graham MD Attending Provider Active Star t: August 04, 2023 Team Status: Inactive Member Role Status Lalita Del Real II MD Primary Care Provider Active Start: August 28, 2023 End: August 28, 2023 Seth Weiss MD Attending Provider Active Star t: August 28, 2023 End: August 28, 2023 Team Status: Active Member Role Status Lalita Del Real II MD Primary Care Provider Active Start: September 03, 2023 Narinder Toussaint MD Attending Provider Active Star t: September 03, 2023 Team Status: Active Member Role Status Lalita Del Real II MD Primary Care Provider Active Start: September 05, 2023 Armond Bueno DO Attending Provider Active Sta rt: September 05, 2023 Team Status: Inactive Member Role Status Lalita Del Real II MD Primary Care Provider Active Start: September 20, 2023 End: September 20, 2023 Seth Weiss MD Attending Provider Active Star t: September 20, 2023 End: September 20, 2023 Team Status: Inactive Member Role Status Lalita Freed DO Emergency Provider Active Sta rt: September 22, 2023 End: September 22, 2023 Lily Del Real II MD Primary Care Provider Active Start: September 22, 2023 End: September 22, 2023 Team Status: Inactive Member Role Status Lalita Del Real II MD Primary Care Provider Active Start: October 14, 2023 End: October 14, 2023 Larissa Chacon APRN Attending Provider Active Start: October 14, 2023 End: October 14, 2023 Team Status: Active Member Role Status Dates Lily Del Real II MD Primary Care Provider Active Start: May 04, 2023 Narinder Toussaint MD Attending Provider Active Star t: May 04, 2023 Team Status: Inactive Member Role Status Dates Lily Del Real II MD Primary Care Provider Active Start: May 27, 2023 End: May 27, 2023 Xiomara Giles APRN-COMPUTATIONAL THEORY SCIENTIST-C Attending Provider Active Start: May 27, 2023 End: May 27, 2023 Team Status: Active Member Role Status Lalita Del Real II MD Primary Care Provider Active Start: June 04, 2023 Geronimo Graham MD Attending Provider Active Star t: June 04, 2023 Team Status: Inactive Member Role Status Dates Lily Del Real II MD Primary Care Provider Active Start: June 12, 2023 End: June 12, 2023 Maxime Bhatti MD Attending Provider Active Start: June 12, 2023 End: June 12, 2023 Team Status: Active Member Role Status Dates Lily Del Real II MD Primary Care Provider Active Start: June 13, 2023 oWod Zavala MD Attending Provider Active Start : June 13, 2023 Team Status: Active Member Role Status Lalita Del Real II MD Primary Care Provider Active Start: July 01, 2023 End: July 08, 2023 Gillian Mcgregro MD Emergency Provider Active Start: July 01, 2023 End: July 08, 2023 Tatiana Loya MD Admit Provider, Other Provider Activ e Start: July 01, 2023 End: July 08, 2023 Narinder Toussaint MD Other Provider Active Start: M ay 2023 End: July 08, 2023 FERNANDO Roblreo Other Provider Active Start: July 01, 2023 End: July 08, 2023 Wood Zavala MD Other Provider Active Start: Christie walls 2023 End: July 08, 2023 Geronimo Graham MD Other Provider Active Start: M ay 2023 End: July 08, 2023 WYATT Sosa Other Provider Active Sta rt: July 01, 2023 End: July 08, 2023 Seth Weiss MD Attending Provider, Other Provider Active Start: July 01, 2023 End: July 08, 2023 FERNANDO Logan Other Provider Active St art: July 01, 2023 End: July 08, 2023 Team Status: Inactive Member Role Status Dates Lily Del Real II MD Primary Care Provider Active Start: July 01, 2023 End: July 08, 2023 Gillian Mcgregor MD Emergency Provider Active Start: July 01, 2023 End: July 08, 2023 Tatiana Loya MD Admit Provider Active Start: M ay 2023 End: July 08, 2023 Narinder Toussaint MD Other Provider Active Start: M ay 2023 End: July 08, 2023 FERNANDO Roblero Other Provider Active Start: July 01, 2023 End: July 08, 2023 Wood Zavala MD Other Provider Active Start: Ma y 2023 End: July 08, 2023 Geronimo Graham MD Other Provider Active Start: M ay 2023 End: July 08, 2023 Teofilo Benedict [facility] Other Provider Active Sta rt: July 01, 2023 End: July 08, 2023 Seth Weiss MD Other Provider Active Start: M ay 2023 End: July 08, 2023 FERNANDO Logan Other Provider Active St art: July 01, 2023 End: July 08, 2023 Lexi Carlson DO Attending Provider Active Sta rt: July 01, 2023 End: July 08, 2023 Tasia Luther MD Other Provider Active Start: Ma y 2023 End: July 08, 2023 Quintin Johnson MD Other Provider Active Start: M ay 2023 End: July 08, 2023 Larissa Chacon APRN Other Provider Active St art: July 01, 2023 End: July 08, 2023 J Carlos House Jr DO Other Provider Active S tart: July 01, 2023 End: July 08, 2023 Paul Eli MD Other Provider Active Start: July 01, 2023 End: July 08, 2023 Team Status: Active Member Role Status Dates Lily Del Real II MD Primary Care Provider Active Start: July 01, 2023 End: July 08, 2023 Gillian Mcgregor MD Emergency Provider Active Start: July 01, 2023 End: July 08, 2023 Tatiana Loya MD Admit Provider, Othe r Provider Active Start: July 01, 2023 End: July 08, 2023 Teofilo Benedict [facility] Other Provider Active Sta rt: July 01, 2023 End: July 08, 2023 Seth Weiss MD Other Provider Active Start: M ay 2023 End: July 08, 2023 FERNANDO Logan Other Provider Active St art: July 01, 2023 End: July 08, 2023 Katalina Wood RN Other Provider Active Star t: July 01, 2023 End: July 08, 2023 Donal Farrar MD Other Provider Active Start: M ay 2023 End: July 08, 2023 Moo Villanueva MD Other Provider Active Start: June 30 End: July 08, 2023 Edie Michel MD Other Provider Active Start: July 01, 2023 End: July 08, 2023 Narinder Toussaint MD Other Provider Active Start: M ay 2023 End: July 08, 2023 FERNANDO Roblero Other Provider Active Start: July 01, 2023 End: July 08, 2023 Wood Zavala MD Attending Provider, Other Provider Active Start: July 01, 2023 End: July 08, 2023 Geronimo Graham MD Other Provider Active Start: M ay 2023 End: July 08, 2023 Team Status: Active Member Role Status Dates Lily Del Real II MD Primary Care Provider Active Start: July 01, 2023 End: July 08, 2023 Gillian Mcgregor MD Emergency Provider Active Start: July 01, 2023 End: July 08, 2023 Tatiana Loya MD Admit Provider, Othe r Provider Active Start: July 01, 2023 End: July 08, 2023 Teofilo Benedict [facility] Other Provider Active Sta rt: July 01, 2023 End: July 08, 2023 Seth Weiss MD Other Provider Active Start: M ay 2023 End: July 08, 2023 FERNANDO Logan Other Provider Active St art: July 01, 2023 End: July 08, 2023 Katalina Wood RN Other Provider Active Star t: July 01, 2023 End: July 08, 2023 Donal Farrar MD Other Provider Active Start: M ay 2023 End: July 08, 2023 Moo Villanueva MD Other Provider Active Start: June 30 End: July 08, 2023 Edie Michel MD Attending Provider, Other Provider Active Start: July 01, 2023 End: July 08, 2023 Narinder Toussaint MD Other Provider Active Start: M ay 2023 End: July 08, 2023 FERNANDO Roblero Other Provider Active Start: July 01, 2023 End: July 08, 2023 Wood Zavala MD Other Provider Active Start: Christie walls 2023 End: July 08, 2023 Geronimo Graham MD Other Provider Active Start: M ay 2023 End: July 08, 2023 Team Status: Active Member Role Status Dates Lily Del Real II MD Primary Care Provider Active Start: July 08, 2023 End: July 08, 2023 Gillian Mcgregor MD Emergency Provider Active Start: July 08, 2023 End: July 08, 2023 Tatiana Loya MD Admit Provider Active Start: M ay 2023 End: July 08, 2023 Narinder Toussaint MD Other Provider Active Start: M ay 2023 End: July 08, 2023 FERNANDO Roblero Other Provider Active Start: July 08, 2023 End: July 08, 2023 Wood Zavala MD Other Provider Active Start: Christie walls 2023 End: July 08, 2023 Geronimo Graham MD Other Provider Active Start: M ay 2023 End: July 08, 2023 WYATT Sosa Other Provider Active Sta rt: July 08, 2023 End: July 08, 2023 Seth Weiss MD Attending Provider, Other Provider Active Start: July 08, 2023 End: July 08, 2023 FERNANDO Logan Other Provider Active St art: July 08, 2023 End: July 08, 2023 Lexi Carlson , DO Other Provider Active Start: July 08, 2023 End: July 08, 2023 Team Status: Active Member Role Status Dates Lily Del Real II MD Primary Care Provider Active Start: July 08, 2023 End: July 08, 2023 Gillian Mcgregor MD Emergency Provider Active Start: July 08, 2023 End: July 08, 2023 Tatiana Loya MD Admit Provider Active Start: ay 2023 End: July 08, 2023 Narinder Toussaint MD Other Provider Active Start: ay 2023 End: July 08, 2023 Lyndsay Hernandez NP-C Other Provider Active Start: July 08, 2023 End: July 08, 2023 Wood Zavala MD Other Provider Active Start: Christie walls 2023 End: July 08, 2023 Geronimo Graham MD Other Provider Active Start: [facility] 2023 End: July 08, 2023 WYATT Sosa Other Provider Active Sta rt: July 08, 2023 End: July 08, 2023 Seth Weiss MD Other Provider Active Start: ay 2023 End: July 08, 2023 Cathleen Downey NP-C Other Provider Active St art: July 08, 2023 End: July 08, 2023 Lexi Carlson DO Other Provider Active Start: July 08, 2023 End: July 08, 2023 Tasia Luther MD Other Provider Active Start: Christie y 2023 End: July 08, 2023 Quintin Johnson MD Attending Provider, Other Provider Active Start: July 08, 2023 End: July 08, 2023 Larissa Chacon APRN Other Provider Active St art: July 08, 2023 End: July 08, 2023 J Carlos House Jr, DO Other Provider Active S tart: July 08, 2023 End: July 08, 2023 Paul Eli MD Other Provider Active Start: July 08, 2023 End: July 08, 2023 Team Status: Active Member Role Status Dates Lily Del Real II MD Primary Care Provider Active Start: July 08, 2023 End: July 08, 2023 Gillian Mcgregor MD Emergency Provider Active Start: July 08, 2023 End: July 08, 2023 Tatiana Loya MD Admit Provider Active Start: Braeden ay 2023 End: July 08, 2023 Narinder Toussaint MD Attending Provider, Other Provider Active Start: July 08, 2023 End: July 08, 2023 Lyndsay Hernandez NP-C Other Provider Active Start: July 08, 2023 End: July 08, 2023 Wood Zavala MD Other Provider Active Start: Christie y 2023 End: July 08, 2023 Geronimo Graham MD Other Provider Active Start: M ay 2023 End: July 08, 2023 WYATT Sosa Other Provider Active Sta rt: July 08, 2023 End: July 08, 2023 Seth Weiss MD Other Provider Active Start: Braeden ay 2023 End: July 08, 2023 Cathleen Downey NP-C Other Provider Active St art: July 08, 2023 End: July 08, 2023 Lexi Carlson DO Other Provider Active Start: July 08, 2023 End: July 08, 2023 Tasia Luther MD Other Provider Active Start: Christie walls 2023 End: July 08, 2023 Quintin Johnson MD Other Provider Active Start: Braeden ay 2023 End: July 08, 2023 Larissa Chacon APRN Other Provider Active St art: July 08, 2023 End: July 08, 2023 J Carlos House Jr DO Other Provider Active S tart: July 08, 2023 End: July 08, 2023 Paul Eli MD Other Provider Active Start: July 08, 2023 End: July 08, 2023 Team Status: Active Member Role Status Dates Lily Del Real II MD Primary Care Provider Active Start: July 09, 2023 Quintin Johnson MD Admit Provider, Othe r Provider Active Start: July 09, 2023 Melina Aponte , MED Other Provider Active Star t: July 09, 2023 Maddie Shah , MED Other Provider Active Start : July 09, 2023 Ashley Moran RN Other Provider Active Star t: July 09, 2023 Maddie Braxton , MED Other Provider Active Start: M ay 2023 Zuleyka Simmons RN Other Provider Active Start: Ma y 2023 Annette Tenorio MD Other Provider Active Start: July 09, 2023 Ann Jj , DO Other Provider Active Start : July 09, 2023 Cesario Clifford MD Other Provider Active Start : July 09, 2023 Carlton tMz , Other Provider Active Start: July 09, 2023 Jamal Schaefer MD Other Provider Active Start: July 09, 2023 Venecia Hawkins MD Other Provider Active Start : July 09, 2023 Mendoza Seth MD Other Provider Active Start: ay 2023 Nataliya Herzog APRN Other Provider Active Start: July 09, 2023 Gabrielle Griffiths MD Other Provider Active Start: July 09, 2023 Zev Morgan MD Other Provider Active Start: ay 2023 Teresa Pagan MD Other Provider Active Start: July 09, 2023 Erica Armenta MD Other Provider Active Start: July 09, 2023 Pennie Love DO Other Provider Active Start: July 09, 2023 Simone Godoy MD Other Provider Active Start: 2023 Slick Cohn MD Other Provider Active Start: July 09, 2023 Marilyn Daniels MATERIAL LOADER-C Other Provider Active St art: July 09, 2023 Johnny Tan APRN Other Provider Active Star t: July 09, 2023 Celestino Bhagat MD Other Provider Active Start: July 09, 2023 Christiano Quezada MD Other Provider Active Start: Ma y 2023 Alphonse Medina MD Other Provider Active Start: July 09, 2023 Gretchen Dickens MD Other Provider Active Star t: July 09, 2023 Charles Dixon MD Other Provider Active Start: M ay 2023 Marjorie Meehan , Other Provider Active Start: Ma y 2023 Reese Frye , Other Provider Active Start : July 09, 2023 Edie Ferrera APRN Other Provider Active Start: July 09, 2023 Davide Rice , Other Provider Active Start: July 09, 2023 Gary Almaguer MD Other Provider Active Sta rt: July 09, 2023 Malika Arreaga APRN Other Provider Active Start : July 09, 2023 Luba Cardenas APRN Other Provider Active St art: July 09, 2023 Tatiana Loya MD Other Provider Active Start: ay 2023 Lily Zhang MD Other Provider Active S tart: July 09, 2023 Eric Thomas , DO Other Provider Active Star t: July 09, 2023 Lexi Carlson , Other Provider Active Start: July 09, 2023 Angel Medina MD Other Provider Active Start: July 09, 2023 Lois Up RN Other Provider Active Start: 2023 Narinder Toussaint MD Other Provider Active Start: 2023 FERNANDO Roblero Other Provider Active Start: July 09, 2023 Wood Zavala MD Other Provider Active Start: 2023 Geronimo Graham MD Other Provider Active Start: 2023 Larissa Chacon APRN Attending Provider Active Start: July 09, 2023 Team Status: Active Member Role Status Dates Lily Del Real II MD Primary Care Provider Active Start: July 09, 2023 Quintin Johnson MD Admit Provider, Othe r Provider Active Start: July 09, 2023 Melina Aponte RN Other Provider Active Star t: July 09, 2023 Maddie Shah , MED Other Provider Active Start : July 09, 2023 Ashley Moran , MED Other Provider Active Star t: July 09, 2023 Maddie Braxton RN Other Provider Active Start: ay 2023 Zuleyka Simmons RN Other Provider Active Start: Ma y 2023 Annette Tenorio MD Other Provider Active Start: July 09, 2023 Ann Jj DO Other Provider Active Start : July 09, 2023 Cesario Clifford MD Other Provider Active Start : July 09, 2023 Carlton Mtz , DO Other Provider Active Start: July 09, 2023 Jamal Schaefer MD Other Provider Active Start: July 09, 2023 Venecia Hawkins MD Other Provider Active Start : July 09, 2023 Mendoza Seth MD Other Provider Active Start: ay 2023 Nataliya Herzog APRN Other Provider Active Start: July 09, 2023 Gabrielle Griffiths MD Other Provider Active Start: July 09, 2023 Zev Morgan MD Other Provider Active Start: M ay 2023 Teresa Pagan MD Other Provider Active Start: July 09, 2023 Erica Armenta MD Other Provider Active Start: July 09, 2023 Pennie Love , Other Provider Active Start: July 09, 2023 Simone Godoy MD Other Provider Active Start: 2023 Slick Cohn MD Other Provider Active Start: July 09, 2023 Marilyn Daniels NP-C Other Provider Active St art: July 09, 2023 Johnny Tan APRN Other Provider Active Star t: July 09, 2023 Celestino Bhagat MD Other Provider Active Start: July 09, 2023 Christiano Quezada MD Other Provider Active Start: 2023 Alphonse Medina MD Other Provider Active Start: July 09, 2023 Gretchen Dickens MD Other Provider Active Star t: July 09, 2023 Charles Dixon MD Other Provider Active Start: ay 2023 Marjorie Meehan , DO Other Provider Active Start: y 2023 Reese Frye , DO Other Provider Active Start : July 09, 2023 Edie Ferrera APRN Other Provider Active Start: July 09, 2023 Davide Rice , Other Provider Active Start: July 09, 2023 Gary Almaguer MD Other Provider Active Sta rt: July 09, 2023 Malika Arreaga APRN Other Provider Active Start : July 09, 2023 Luba Cardenas APRN Other Provider Active St art: July 09, 2023 Tatiana Loya MD Other Provider Active Start: M ay 2023 Lily Zhang MD Other Provider Active S tart: July 09, 2023 Eric Thomas , DO Other Provider Active Star t: July 09, 2023 Lexi Carlson , Other Provider Active Start: July 09, 2023 Angel Medina MD Other Provider Active Start: July 09, 2023 Lois Up , MED Other Provider Active Start: ay 2023 Narinder Toussaint MD Attending Provider, Other Provider Active Start: July 09, 2023 ALBERTO RobleroC Other Provider Active Start: July 09, 2023 Wood Zavala MD Other Provider Active Start: Ma y 2023 Geronimo Graham MD Other Provider Active Start: ay 2023 Team Status: Active Member Role Status Dates Lily Del Real II MD Primary Care Provider Active Start: July 16, 2023 Quintin Johnson MD Admit Provider, Othe r Provider Active Start: July 16, 2023 Melina Aponte , MED Other Provider Active Star t: July 16, 2023 Maddie Shah , MED Other Provider Active Start : July 16, 2023 Ashley Moran , MED Other Provider Active Star t: July 16, 2023 Maddie Braxton , MED Other Provider Active Start: une 2023 Zuleyka Simmons , MED Other Provider Active Start: Ju 2023 Annette Tenorio MD Other Provider Active Start: July 16, 2023 Ann Jj , Other Provider Active Start : July 16, 2023 Cesario Clifford MD Other Provider Active Start : July 16, 2023 Carlton Mtz DO Other Provider Active Start: July 16, 2023 Jamal Schaefer MD Other Provider Active Start: July 16, 2023 Venecia Hawkins MD Other Provider Active Start : July 16, 2023 Mendoza Seth MD Other Provider Active Start: une 2023 Nataliya Herzog APRN Other Provider Active Start: July 16, 2023 Gabrielle Griffiths MD Other Provider Active Start: July 16, 2023 Zev Morgan MD Other Provider Active Start: J une 2023 Teresa Pagan MD Other Provider Active Start: July 16, 2023 Erica Armenta MD Other Provider Active Start: July 16, 2023 Pennie Love , Other Provider Active Start: July 16, 2023 Simone Godoy MD Other Provider Active Start: 2023 Slick Cohn MD Other Provider Active Start: Jul Marilyn Daniels NP-C Other Provider Active St art: July 16, 2023 Johnny Tan , ROSTER CLERK Other Provider Active Star t: July 16, 2023 Celestino Bhagat MD Other Provider Active Start: July 16, 2023 Christiano Quezada MD Other Provider Active Start: 2023 Alphonse Medina MD Other Provider Active Start: Jul Gretchen Dickens MD Other Provider Active Star t: July 16, 2023 Charles Dixon MD Other Provider Active Start: 2023 Marjorie Meehan , Other Provider Active Start: 2023 Reese Frye DO Other Provider Active Start : July 16, 2023 Edie Ferrera APRN Other Provider Active Start: July 16, 2023 Davide Rice DO Other Provider Active Start: July 16, 2023 Gary Almaguer MD Other Provider Active Sta rt: July 16, 2023 Malika Arreaga APRN Other Provider Active Start : July 16, 2023 Luba Cardenas APRN Other Provider Active St art: July 16, 2023 Tatiana Loya MD Other Provider Active Start: 2023 Lily Zhang MD Other Provider Active S tart: July 16, 2023 Eric Thomas , Other Provider Active Star t: July 16, 2023 Lexi Carlson DO Other Provider Active Start: July 16, 2023 Angel Medina MD Other Provider Active Start: July 16, 2023 Lois Up RN Other Provider Active Start: 2023 Narinder Toussaint MD Other Provider Active Start: 2023 Lyndsay Hernandez NP-C Other Provider Active Start: July 16, 2023 Wood Zavala MD Other Provider Active Start: 2023 Geronimo Graham MD Attending Provider, Other Provider Active Start: July 16, 2023 Swati Velazquez Other Provider Active Start: July 16, 2023 Amanda Barron , Other Provider Active Start: July 16, 2023 Zeke Whitman MD Other Provider Active Start : July 16, 2023 Jeannie Guillermo , DO Other Provider Active Start: July 16, 2023 Elisabet Meade , ANP-BC Other Provider Active Start: July 16, 2023 Danny Mcclelland , DO Other Provider Active Start: July 16, 2023 Krista Greene , NELI Other Provider Active St art: July 16, 2023 Myla Pierre , MATERIAL LOADER-C Other Provider Active Sta rt: July 16, 2023 Xiomara Giles , ROSTER CLERK-COMPUTATIONAL THEORY SCIENTIST-C Other Provider Active Start: July 16, 2023 Team Status: Active Member Role Status Dates Lily Del Real II MD Primary Care Provider Active Start: July 17, 2023 Quintin Johnson MD Admit Provider, Atte nding Provider, Other Provider Active Start: July 17, 2023 Melina Aponte , MED Other Provider Active Star t: July 17, 2023 Maddie Shah , MED Other Provider Active Start : July 17, 2023 Ashley Moran , MED Other Provider Active Star t: July 17, 2023 Maddie Braxton , MED Other Provider Active Start: J 2023 Zuleyka Simmons , MED Other Provider Active Start: Teresita 2023 Annette Tenorio MD Other Provider Active Start: July 17, 2023 Ann Jj DO Other Provider Active Start : July 17, 2023 Cesario Clifford MD Other Provider Active Start : July 17, 2023 Carlton Mtz DO Other Provider Active Start: July 17, 2023 Jamal Schaefer MD Other Provider Active Start: July 17, 2023 Venecia Hawkins MD Other Provider Active Start : July 17, 2023 Mendoza Seth MD Other Provider Active Start: une 2023 Nataliya Herzog APRN Other Provider Active Start: July 17, 2023 Gabrielle Griffiths MD Other Provider Active Start: July 17, 2023 Zev Morgan MD Other Provider Active Start: J une 2023 Teresa Pagan MD Other Provider Active Start: July 17, 2023 Erica Armenta MD Other Provider Active Start: July 17, 2023 Pennie Love , Other Provider Active Start: July 17, 2023 Simone Godoy MD Other Provider Active Start: 2023 Slick Cohn MD Other Provider Active Start: Jul Marilyn Daniels NP-C Other Provider Active St art: July 17, 2023 Johnny Tan APRN Other Provider Active Star t: July 17, 2023 Celestino Bhagat MD Other Provider Active Start: July 17, 2023 Christiano Quezada MD Other Provider Active Start: 2023 Alphonse Medina MD Other Provider Active Start: Jul Gretchen Dickens MD Other Provider Active Star t: July 17, 2023 Charles Dixon MD Other Provider Active Start: 2023 Marjorie Meehan DO Other Provider Active Start: 2023 Reese Frye DO Other Provider Active Start : July 17, 2023 Edie Ferrera APRN Other Provider Active Start: July 17, 2023 Davide Rice DO Other Provider Active Start: July 17, 2023 Gary Almaguer MD Other Provider Active Sta rt: July 17, 2023 Malika Arreaga APRN Other Provider Active Start : July 17, 2023 Luba Cardenas APRN Other Provider Active St art: July 17, 2023 Tatiana Loya MD Other Provider Active Start: 2023 Lily Zhang MD Other Provider Active S tart: July 17, 2023 Eric Thomas , Other Provider Active Star t: July 17, 2023 Lexi Carlson , Other Provider Active Start: July 17, 2023 Angel Medina MD Other Provider Active Start: July 17, 2023 Lois Up RN Other Provider Active Start: 2023 Narinder Toussaint MD Other Provider Active Start: 2023 ALBERTO RobleroC Other Provider Active Start: July 17, 2023 Wood Zavala MD Other Provider Active Start: 2023 Geronimo Graham MD Other Provider Active Start: J ej 2023 Swati Velazquez Other Provider Active Start: July 17, 2023 Amanda Barron , Other Provider Active Start: July 17, 2023 Zeke Whitman MD Other Provider Active Start : July 17, 2023 Jeannie Guillermo , Other Provider Active Start: July 17, 2023 Elisabet Meade , ANP-BC Other Provider Active Start: July 17, 2023 Danny Mcclelland DO Other Provider Active Start: July 17, 2023 Krista Greene , NELI Other Provider Active St art: July 17, 2023 Myla Pierre , MATERIAL LOADER-C Other Provider Active Sta rt: July 17, 2023 Xiomara Giles APRN-COMPUTATIONAL THEORY SCIENTIST-C Other Provider Active Start: July 17, 2023 Team Status: Inactive Member Role Status Dates Lily Del Real II MD Primary Care Provider Active Start: April 01, 2023 End: April 05, 2023 Chi Henderson DO Emergency Provider Active Sta rt: April 01, 2023 End: April 05, 2023 Teresa Pagan MD Admit Provider Active Start: April 01, 2023 End: April 05, 2023 Gary Almaguer MD Attending Provider Active Start: April 01, 2023 End: April 05, 2023 Geronimo Graham MD Other Provider Active Start: F rosa 2023 End: April 05, 2023 Danny Mcclelland DO Other Provider Active Start: April 01, 2023 End: April 05, 2023 Maxime Bhatti MD Other Provider Active Start: April 01, 2023 End: April 05, 2023 Team Status: Active Member Role Status Dates Lily Del Real II MD Primary Care Provider Active Start: April 06, 2023 Geronimo Graham MD Attending Provider Active Star t: April 06, 2023 Team Status: Inactive Member Role Status Dates Azar Palmer Jr, MD Emergency Provider Active Start: April 16, 2023 End: April 16, 2023 Lily Eldridge DO Primary Care Provider Active Start: April 16, 2023 End: April 16, 2023 Team Status: Inactive Member Role Status Dates Lily Del Real II MD Primary Care Provider Active Start: May 02, 2023 End: May 02, 2023 Pennie Levin MD Emergency Provider Active St art: May 02, 2023 End: May 02, 2023 Team Status: Active Member Role Status Dates Lily Del Real II MD Primary Care Provider Active Start: June 30, 2023 Gillian Mcgregor MD Emergency Provider Active Start: June 30, 2023 Tatiana Loya MD Admit Provider, Atte nding Provider Active Start: June 30, 2023 Teofilo Benedict [facility] [facility] Other Provider Active Sta rt: June 30, 2023 Seth Weiss MD Other Provider Active Start: M ay 2023 Cathleen Downey MATERIAL LOADER-C Other Provider Active St art: June 30, 2023 Narinder Toussaint MD Other Provider Active Start: M ay 2023 Lyndsay Hernandez NP-C Other Provider Active Start: June 30, 2023 Wood Zavala MD Other Provider Active Start: Ma y 2023 Geronimo Graham MD Other Provider Active Start: M ay 2023 Team Status: Active Member Role Status Dates Lily Del Real II MD Primary Care Provider Active Start: March 05, 2023 Marcel Arreaga MD Emergency Provider Active Star t: March 05, 2023 Jamal Schaefer MD Admit Provider Active Start: March 05, 2023 Gary Almaguer MD Other Provider Active Sta rt: March 05, 2023 Katalina Wood RN Other Provider Active Star t: March 05, 2023 Donal Farrar MD Other Provider Active Start: J anuary 2023 Moo Villanueva MD Other Provider Active Start: March 05, 2023 Edie Michel MD Other Provider Active Start: March 05, 2023 Narinder Toussaint MD Attending Provider, Other Provider Active Start: March 05, 2023 Team Status: Active Member Role Status Dates Lily Del Real II MD Primary Care Provider Active Start: April 01, 2023 Chi Henderson DO Emergency Provider Active Sta rt: April 01, 2023 Teresa Pagan MD Admit Provider, Atte nding Provider, Other Provider Active Start: April 01, 2023 Team Status: Active Member Role Status Dates Lily Del Real II MD Primary Care Provider Active Start: April 02, 2023 Chi Henderson DO Emergency Provider Active Sta rt: April 02, 2023 Teresa Pagan MD Admit Provider Active Start: April 02, 2023 Gary Almaguer MD Other Provider Active Sta rt: April 02, 2023 Geronimo Graham MD Other Provider Active Start: F ebru2023 Danny Mcclelland DO Other Provider Active Start: April 02, 2023 Maxime Bhatti MD Attending Prov ider, Other Provider Active Start: April 02, 2023 Team Status: Active Member Role Status Dates Lily Del Real II MD Primary Care Provider Active Start: April 02, 2023 Chi Henderson DO Emergency Provider Active Sta rt: April 02, 2023 Teresa Pagan MD Admit Provider Active Start: April 02, 2023 Danny Mcclelland DO Other Provider Active Start: April 02, 2023 Geronimo Graham MD Attending Provider, Other Provider Active Start: April 02, 2023 Maxime Bhatti MD Other Provider Active Start: April 02, 2023 Gary Almaguer MD Other Provider Active Sta rt: April 02, 2023 Team Status: Inactive Member Role Status Dates Lily Del Real II MD Primary Care Provider Active Azar Palmer Jr, MD Emergency Provider Active Gary Almaguer MD Admit Provider Active Narinder Toussaint MD Other Provider Active Wood Zavala MD Other Provider Active Jackson De Santiago MD Other Provider Active Godwin Larios MD Other Provider Active Geronimo Graham MD Other Provider Active Carlton Mzt DO Attending Provider Active Edie Michel MD Other Provider Active Team Status: Active Member Role Status Lalita Del Real II MD Primary Care Provider Active Horacio Moreno DO Emergency Provider Active Pennie Love DO Admit Provider, Attending Provider Active Team Status: Active Member Role Status Lalita Del Real II MD Primary Care Provider Active Azar Palmer Jr, MD Emergency Provider Active Gary Almaguer MD Admit Provider, Attending Provi sydnee Active Team Status: Inactive Member Role Status Lalita Del Real II MD Primary Care Provider Active Tessie Walker MATERIAL LOADER-C Attending Provider Active Team Status: Inactive Member Role Status Lalita Del Real II MD Primary Care Provider Active Geronimo Graham MD Other Provider Active Marcus Banks , PASSENGER AGENT Other Provider Active Arabella Fernández , PASSENGER AGENT Other Provider Active David Suoth MD Other Provider Active FERNANDO Richard Other Provider Active Ronald Gutierrez MD Other Provider Active Maxime Bhatti MD Other Provider Active Annette Tenorio MD Admit Provider, Attending Provider Active Yamileth Levi II, MD Other Provider Active Team Status: Inactive Member Role Status Lalita Del Real II MD Primary Care Provider Active Geronimo Graham MD Attending Provider Active Team Status: Inactive Member Role Status Lalita Del Real II MD Primary Care Provider Active Maxime Bhatti MD Attending Provider Active Team Status: Inactive Member Role Status Lalita Del Real II MD Primary Care Provider Active Azar Palmer Jr, MD Emergency Provider Active Gary Almaguer MD Admit Provider Active Narinder Toussaint MD Other Provider Active Wood Zavala MD Other Provider Active Jackson De Santiago MD Other Provider Active Godwin Larios MD Other Provider Active Geronimo Graham MD Other Provider Active Simone Godoy MD Attending Provider Active Team Status: Inactive Member Role Status Lalita Del Real II MD Primary Care Provider Active Horacio Moreno DO Emergency Provider Active Jamal Schaefer MD Admit Provider Active Wilmer Azevedo MD Other Provider Active Narinder Toussaint MD Other Provider Active Wood Zavala MD Other Provider Active Jackson De Santiago MD Other Provider Active Godwin Larios MD Other Provider Active Geronimo Graham MD Other Provider Active Teresa Pagan MD Attending Provider Active Team Status: Inactive Member Role Status Lalita Del Real II MD Primary Care Provider Active Horacio Moreno DO Emergency Provider Active Pennie Love DO Admit Provider Active Teresa Pagan MD Attending Provider Active Edie Michel MD Other Provider Active Wood Zavala MD Other Provider Active Team Status: Active Member Role Status Lalita Del Real II MD Primary Care Provider Active Edie Michel MD Attending Provider Active Team Status: Inactive Member Role Status Lalita Del Real II MD Primary Care Provider Active Edie Michel MD Attending Provider Active Team Status: Inactive Member Role Status Lalita Del Real II MD Primary Care Provider Active Moo Villanueva MD Other Provider Active Edie Michel MD Other Provider Active Jamal Schaefer MD Admit Provider Active Narinder Toussaint MD Other Provider Active Annette Tenorio MD Attending Provider Active Team Status: Active Member Role Status Dates Lily Del Real II MD Primary Care Provider Active Azar Palmer Jr, MD Emergency Provider Active Carlton Mtz , DO Admit Provider, Attending Pr ovider Active Team Status: Inactive Member Role Status Lalita Del Real II MD Primary Care Provider Active Azar Palmer Jr, MD Emergency Provider Active Carlton Mtz , DO Admit Provider Active Tatiana Loya MD Attending Provider Active Moo Villanueva MD Other Provider Active Edie Michel MD Other Provider Active Narinder Toussaint MD Other Provider Active Team Status: Inactive Member Role Status Lalita Del Real II MD Primary Care Provider Active Azar Palmer Jr, MD Emergency Provider Active Carlton Mtz , DO Admit Provider Active Tatiana Loya MD Attending Provider Active Moo Villanueva MD Other Provider Active Edie Michel MD Other Provider Active Narinder Toussaint MD Other Provider Active Team Status: Inactive Member Role Status Lalita Del Real II MD Primary Care Provider Active Wood Zavala MD Attending Provider Active Team Status: Inactive Member Role Status Lalita Del Real II MD Primary Care Provider Active Moo Villanueva MD Other Provider Active Edie Michel MD Other Provider Active Jamal Schaefer MD Admit Provider Active Narinder Toussaint MD Other Provider Active Annette Tenorio MD Attending Provider Active Team Status: Inactive Member Role Status Dates Lily Del Real II MD Primary Care Provider Active Start: [...] Wood Zavala MD Other Provider Active Start: Oc tober 2022 End: December 09, 2022 Team Status: Inactive Member Role Status Dates Lily Del Real II MD Primary Care Provider Active Start: December 09, 2022 End: December 09, 2022 Edie Michel MD Attending Provider Active Sta rt: December 09, 2022 End: December 09, 2022 Team Status: Inactive Member Role Status Dates Lily Del Real II MD Primary Care Provider Active Start: [...] Status: Inactive Member Role Status Dates Lily Del Real II MD Primary Care Provider Active Start: [...] Provider Active Start: N ovember 2022 End: January 02, 2023 Team Status: Inactive Member Role Status Dates Lily Del Real II MD Primary Care Provider Active Start: February 17, 2023 End: February 17, 2023 Wood Zavala MD Attending Provider Active Start : February 17, 2023 End: February 17, 2023 Team Status: Active Member Role Status Dates Lily Del Real II MD Primary Care Provider Active Start: March 05, 2023 Marcel Arreaga MD Emergency Provider Active Star t: March 05, 2023 Jamal Schaefer MD Admit Provider, Atte nding Provider Active Start: March 05, 2023 Team Status: Active Member Role Status Dates Lily Del Real II MD Primary Care Provider Active Start: April 01, 2023 Chi Henderson DO Emergency Provider Active Sta rt: April 01, 2023 Teresa Pagan MD Admit Provider, Atte nding Provider Active Start: April 01, 2023 Team Status: Active Member Role Status Dates Lily Del Real II MD Primary Care Provider Active Start: July 01, 2023 Gillian Mcgregor MD Emergency Provider Active Start: July 01, 2023 Tatiana Loya MD Admit Provider, Other Provider Activ e Start: July 01, 2023 Narinder Toussaint MD Other Provider Active Start: M ay 2023 Lyndsay Hernandez NP-C Other Provider Active Start: July 01, 2023 Wood Zavala MD Other Provider Active Start: Ma y 2023 Geronimo Graham MD Other Provider Active Start: M ay 2023 Teofilo Benedict CSTCROW Other Provider Active Sta rt: July 01, 2023 Seth Weiss MD Attending Provider, Other Provider Active Start: July 01, 2023 ALBERTO LoganC Other Provider Active St art: July 01, 2023 Team Status: Active Member Role Status Dates Lily Del Real II MD Primary Care Provider Active Start: July 01, 2023 Gillian Mcgregor MD Emergency Provider Active Start: July 01, 2023 Tatiana Loya MD Admit Provider, Othe r Provider Active Start: July 01, 2023 Teofilo Benedict CSTCROW Other Provider Active Sta rt: July 01, 2023 Seth Weiss MD Other Provider Active Start: M ay 2023 ALBERTO LoganC Other Provider Active St art: July 01, 2023 Katalina Wood RN Other Provider Active Star t: July 01, 2023 Donal Farrar MD Other Provider Active Start: M ay 2023 Moo Villanueva MD Other Provider Active Start: June 30 Edie Michel MD Other Provider Active Start: July 01, 2023 Narinder Toussaint MD Other Provider Active Start: M ay 2023 Lyndsay Hernandez NP-C Other Provider Active Start: July 01, 2023 Wood Zavala MD Attending Provider, Other Provider Active Start: July 01, 2023 Geronimo Graham MD Other Provider Active Start: M ay 2023 Team Status: Active Member Role Status Dates Lily Del Real II MD Primary Care Provider Active Start: July 01, 2023 Gillian Mcgregor MD Emergency Provider Active Start: July 01, 2023 Tatiana Loya MD Admit Provider, Othe r Provider Active Start: July 01, 2023 Teofilo Benedict , CSTFA Other Provider Active Sta rt: July 01, 2023 Seth Weiss MD Other Provider Active Start: M ay 2023 FERNANDO Logan Other Provider Active St art: July 01, 2023 Katalina Wood RN Other Provider Active Star t: July 01, 2023 Donal Farrar MD Other Provider Active Start: M ay 2023 Moo Villanueva MD Other Provider Active Start: June 30 Edie Michel MD Attending Provider, Other Provider Active Start: July 01, 2023 Narinder Toussaint MD Other Provider Active Start: M ay 2023 Lyndsay Hernandez NP-C Other Provider Active Start: July 01, 2023 Wood Zavala MD Other Provider Active Start: Ma y 2023 Geronimo Graham MD Other Provider Active Start: M ay 2023 Team Status: Active Member Role Status Dates Lily Del Real II MD Primary Care Provider Active Start: July 08, 2023 Gillian Mcgregor MD Emergency Provider Active Start: July 08, 2023 Tatiana Loya MD Admit Provider Active Start: M ay 2023 Narinder Toussaint MD Other Provider Active Start: M ay 2023 Lyndsay Hernandez NP-C Other Provider Active Start: July 08, 2023 Wood Zavala MD Other Provider Active Start: Ma y 2023 Geronimo Graham MD Other Provider Active Start: M ay 2023 Teofilo Benedict , CSTFA Other Provider Active Sta rt: July 08, 2023 Seth Weiss MD Attending Provider, Other Provider Active Start: July 08, 2023 FERNANDO Logan Other Provider Active St art: July 08, 2023 Lexi Carlson , Other Provider Active Start: July 08, 2023 Team Status: Active Member Role Status Dates Lily Del Real II MD Primary Care Provider Active Start: July 08, 2023 Gillian Mcgregor MD Emergency Provider Active Start: July 08, 2023 Tatiana Loya MD Admit Provider Active Start: ay 2023 Narinder Toussaint MD Other Provider Active Start: ay 2023 FERNANDO Roblero Other Provider Active Start: July 08, 2023 Wood Zavala MD Other Provider Active Start: Ma y 2023 Geronimo Graham MD Other Provider Active Start: ay 2023 WYATT Sosa Other Provider Active Sta rt: July 08, 2023 Seth Weiss MD Other Provider Active Start: ay 2023 FERNANDO Logan Other Provider Active St art: July 08, 2023 Lexi Carlson DO Other Provider Active Start: July 08, 2023 Tasia Luther MD Other Provider Active Start: y 2023 Quintin Johnson MD Attending Provider, Other Provider Active Start: July 08, 2023 Larissa Chacon APRN Other Provider Active St art: July 08, 2023 J Carlos House Jr, DO Other Provider Active S tart: July 08, 2023 Paul Eli MD Other Provider Active Start: July 08, 2023 Team Status: Active Member Role Status Dates Lily Del Real II MD Primary Care Provider Active Start: July 08, 2023 Gillian Mcgregor MD Emergency Provider Active Start: July 08, 2023 Tatiana Loya MD Admit Provider Active Start: ay 2023 Narinder Toussaint MD Attending Provider, Other Provider Active Start: July 08, 2023 FERNANDO Roblero Other Provider Active Start: July 08, 2023 Wood Zavala MD Other Provider Active Start: Ma y 2023 Geronimo Graham MD Other Provider Active Start: M ay 2023 WYATT Sosa Other Provider Active Sta rt: July 08, 2023 Seth Weiss MD Other Provider Active Start: M ay 2023 FERNANDO Logan Other Provider Active St art: July 08, 2023 Lexi Carlson DO Other Provider Active Start: July 08, 2023 Tasia Luther MD Other Provider Active Start: Christie y 2023 Quintin Johnson MD Other Provider Active Start: ay 2023 Larissa Chacon APRN Other Provider Active St art: July 08, 2023 J Carlos House Jr, DO Other Provider Active S tart: July 08, 2023 Paul Eli MD Other Provider Active Start: July 08, 2023 Team Status: Active Member Role Status Dates Lily Del Real II MD Primary Care Provider Active Start: July 04, 2023 End: July 08, 2023 Gillian Mcgregor MD Emergency Provider Active Start: July 04, 2023 End: July 08, 2023 Tatiana Loya MD Admit Provider Active Start: ay 2023 End: July 08, 2023 Narinder Toussaint MD Other Provider Active Start: [facility] 2023 End: July 08, 2023 FERNANDO Roblero Other Provider Active Start: July 04, 2023 End: July 08, 2023 Wood Zavala MD Other Provider Active Start: Ma y 2023 End: July 08, 2023 Geronimo Graham MD Other Provider Active Start: [facility] 2023 End: July 08, 2023 WYATT Sosa Other Provider Active Sta rt: July 04, 2023 End: July 08, 2023 Seth Weiss MD Attending Provider, Other Provider Active Start: July 04, 2023 End: July 08, 2023 FERNANDO Logan Other Provider Active St art: July 04, 2023 End: July 08, 2023 Lexi Carlson DO Other Provider Active Start: July 04, 2023 End: July 08, 2023 Team Status: Active Member Role Status Dates Lily Del Real II MD Primary Care Provider Active Start: July 09, 2023 End: July 22, 2023 Quintin Johnson MD Admit Provider, Othe r Provider Active Start: July 09, 2023 End: July 22, 2023 Melina Aponte , MED Other Provider Active Star t: July 09, 2023 End: July 22, 2023 Maddie Shah , MED Other Provider Active Start : July 09, 2023 End: July 22, 2023 Ashley Moran RN Other Provider Active Star t: July 09, 2023 End: July 22, 2023 Maddie Braxton RN Other Provider Active Start: M ay 2023 End: July 22, 2023 Zuleyka Simmons RN Other Provider Active Start: Ma y 2023 End: July 22, 2023 Annette Tenorio MD Other Provider Active Start: July 09, 2023 End: July 22, 2023 Ann Jj DO Other Provider Active Start : July 09, 2023 End: July 22, 2023 Cesario Clifford MD Other Provider Active Start : July 09, 2023 End: July 22, 2023 Carlton Mtz DO Other Provider Active Start: July 09, 2023 End: July 22, 2023 Jamal Schaefer MD Other Provider Active Start: July 09, 2023 End: July 22, 2023 Venecia Hawkins MD Other Provider Active Start : July 09, 2023 End: July 22, 2023 Mendoza Seth MD Other Provider Active Start: [facility] 2023 End: July 22, 2023 Nataliya Herzog APRN Other Provider Active Start: July 09, 2023 End: July 22, 2023 Gabrielle Griffiths MD Other Provider Active Start: July 09, 2023 End: July 22, 2023 Zev Morgan MD Other Provider Active Start: ay 2023 End: July 22, 2023 Teresa Pagan MD Other Provider Active Start: July 09, 2023 End: July 22, 2023 Erica Armenta MD Other Provider Active Start: July 09, 2023 End: July 22, 2023 Pennie Frings , DO Other Provider Active Start: July 09, 2023 End: July 22, 2023 Simone Godoy MD Other Provider Active Start: Ma y 2023 End: July 22, 2023 Slick Cohn MD Other Provider Active Start: July 09, 2023 End: July 22, 2023 FERNANDO Sandoval Other Provider Active St art: July 09, 2023 End: July 22, 2023 Johnny Tan APRN Other Provider Active Star t: July 09, 2023 End: July 22, 2023 Celestino Bhagat MD Other Provider Active Start: July 09, 2023 End: July 22, 2023 Christiano Quezada MD Other Provider Active Start: Ma y 2023 End: July 22, 2023 Alphonse Medina MD Other Provider Active Start: July 09, 2023 End: July 22, 2023 Gretchen Dickens MD Other Provider Active Star t: July 09, 2023 End: July 22, 2023 Charles Dixon MD Other Provider Active Start: M ay 2023 End: July 22, 2023 Marjorie Meehan DO Other Provider Active Start: y 2023 End: July 22, 2023 Reese Frye DO Other Provider Active Start : July 09, 2023 End: July 22, 2023 Edie Ferrera APRN Other Provider Active Start: July 09, 2023 End: July 22, 2023 Davide Rice DO Other Provider Active Start: July 09, 2023 End: July 22, 2023 Gary Almaguer MD Other Provider Active Sta rt: July 09, 2023 End: July 22, 2023 Malika Arreaga APRN Other Provider Active Start : July 09, 2023 End: July 22, 2023 Luba Cardenas APRN Other Provider Active St art: July 09, 2023 End: July 22, 2023 Tatiana Loya MD Other Provider Active Start: M ay 2023 End: July 22, 2023 Lily Zhang MD Other Provider Active S tart: July 09, 2023 End: July 22, 2023 Eric Thomas DO Other Provider Active Star t: July 09, 2023 End: July 22, 2023 Lexi Carlson DO Other Provider Active Start: July 09, 2023 End: July 22, 2023 Angel Medina MD Other Provider Active Start: July 09, 2023 End: July 22, 2023 Lois Up RN Other Provider Active Start: [facility] 2023 End: July 22, 2023 Narinder Toussaint MD Other Provider Active Start: [facility] 2023 End: July 22, 2023 ALBERTO RobleroC Other Provider Active Start: July 09, 2023 End: July 22, 2023 Wood Zavala MD Other Provider Active Start: [facility] 2023 End: July 22, 2023 Geronimo Graham MD Other Provider Active Start: [facility] 2023 End: July 22, 2023 Larissa Chacon APRN Attending Provider Active Start: July 09, 2023 End: July 22, 2023 Team Status: Active Member Role Status Dates Lily Del Real II MD Primary Care Provider Active Start: July 09, 2023 End: July 22, 2023 Quintin Johnson MD Admit Provider, Othe r Provider Active Start: July 09, 2023 End: July 22, 2023 Melina Aponte RN Other Provider Active Star t: July 09, 2023 End: July 22, 2023 Maddie Shah , MED Other Provider Active Start : July 09, 2023 End: July 22, 2023 Ashley Moran RN Other Provider Active Star t: July 09, 2023 End: July 22, 2023 Maddie Braxton , MED Other Provider Active Start: ay 2023 End: July 22, 2023 Zuleyka Simmons RN Other Provider Active Start: Christie y 2023 End: July 22, 2023 Annette Tenoiro MD Other Provider Active Start: July 09, 2023 End: July 22, 2023 Ann Jj DO Other Provider Active Start : July 09, 2023 End: July 22, 2023 Cesario Clifford MD Other Provider Active Start : July 09, 2023 End: July 22, 2023 Carlton Mtz DO Other Provider Active Start: July 09, 2023 End: July 22, 2023 Jamal Schaefer MD Other Provider Active Start: July 09, 2023 End: July 22, 2023 Venecia Hawkins MD Other Provider Active Start : July 09, 2023 End: July 22, 2023 Mendoza Seth MD Other Provider Active Start: ay 2023 End: July 22, 2023 Nataliya Herzog APRN Other Provider Active Start: July 09, 2023 End: July 22, 2023 Gabrielle Griffiths MD Other Provider Active Start: July 09, 2023 End: July 22, 2023 Zev Morgan MD Other Provider Active Start: ay 2023 End: July 22, 2023 Teresa Pagan MD Other Provider Active Start: July 09, 2023 End: July 22, 2023 Erica Armenta MD Other Provider Active Start: July 09, 2023 End: July 22, 2023 Pennie Love DO Other Provider Active Start: July 09, 2023 End: July 22, 2023 Simone Godoy MD Other Provider Active Start: 2023 End: July 22, 2023 Slick Cohn MD Other Provider Active Start: July 09, 2023 End: July 22, 2023 FERNANDO Sandoval Other Provider Active St art: July 09, 2023 End: July 22, 2023 Johnny Tan APRN Other Provider Active Star t: July 09, 2023 End: July 22, 2023 Celestino Bhagat MD Other Provider Active Start: July 09, 2023 End: July 22, 2023 Christiano Quezada MD Other Provider Active Start: Ma y 2023 End: July 22, 2023 Alphonse Medina MD Other Provider Active Start: July 09, 2023 End: July 22, 2023 Gretchen Dickens MD Other Provider Active Star t: July 09, 2023 End: July 22, 2023 Charles Dixon MD Other Provider Active Start: M ay 2023 End: July 22, 2023 Marjorie Meehan , Other Provider Active Start: Christie y 2023 End: July 22, 2023 Reese Frye , Other Provider Active Start : July 09, 2023 End: July 22, 2023 Edie Ferrera APRN Other Provider Active Start: July 09, 2023 End: July 22, 2023 Davide Rice , Other Provider Active Start: July 09, 2023 End: July 22, 2023 Gary Almaguer MD Other Provider Active Sta rt: July 09, 2023 End: July 22, 2023 Malika Arreaga APRN Other Provider Active Start : July 09, 2023 End: July 22, 2023 Luba Cardenas APRN Other Provider Active St art: July 09, 2023 End: July 22, 2023 Tatiana Loya MD Other Provider Active Start: ay 2023 End: July 22, 2023 Lily Zhang MD Other Provider Active S tart: July 09, 2023 End: July 22, 2023 Eric Thomas , DO Other Provider Active Star t: July 09, 2023 End: July 22, 2023 Lexi Carlson DO Other Provider Active Start: July 09, 2023 End: July 22, 2023 Angel Medina MD Other Provider Active Start: July 09, 2023 End: July 22, 2023 Lois Up RN Other Provider Active Start: M ay 2023 End: July 22, 2023 Narinder Toussaint MD Attending Provider, Other Provider Active Start: July 09, 2023 End: July 22, 2023 Lyndsay Hernandez NP-Tara Other Provider Active Start: July 09, 2023 End: July 22, 2023 Wood Zavala MD Other Provider Active Start: [facility] 2023 End: July 22, 2023 Geronimo Graham MD Other Provider Active Start: M ay 2023 End: July 22, 2023 Team Status: Active Member Role Status Dates Lily Del Real II MD Primary Care Provider Active Start: August 28, 2023 Seth Weiss MD Attending Provider Active Star t: August 28, 2023 Goals (unrecognized section and content) Goals [...] BE BASED ON THE PRIMARY CLINICAL RECORDS. [employer] provides no warranty or guarantee of the accuracy or completeness of information in this document.
[2023-11-10 00:39] VITALS: BP 123/50; PULSE 72; O2SAT 100
[2023-11-10] MEDS: ADACEL DIPH,PERTUSS(ACELL),TET VAC/PF 0.5 ML ADULT SYRINGE IM (02:28)
[2023-11-10 02:36] VITALS: BP 126/45; PULSE 80; O2SAT 100
[2023-11-10 02:36] LABS: Glucometer 217 mg/dL (74-106)
[2023-11-10 02:41] LABS: Basophils Percent Auto 0.2 % (0.2-2.0); Eosinophils Absolute Auto 0.2 10^3/uL (0.0-0.7); Eosinophils Percent Auto 1.7 % (0.9-7.0); Hematocrit 38.9 % (36.0-48.0); Hemoglobin 12.4 g/dL (12.0-16.0); Immature Granulocytes Abs Auto 0.03 10^3/uL (0.00-0.03); Immature Granulocytes Pct Auto 0.3 % (0.0-0.5); Lymphocytes Absolute Auto 1.3 10^3/uL (1.2-3.8); Lymphocytes Percent Auto 13.4 % (20.5-60.0); Mean Corpuscular HGB Conc 31.9 g/dL (29.9-35.2); Mean Corpuscular Hemoglobin 29.1 pg (26.7-34.0); Mean Corpuscular Volume 91.3 fL (81.0-99.0); Mean Platelet Volume 10.5 fL (9.5-13.5); Monocytes Absolute Auto 1.1 10^3/uL (0.3-0.8); Monocytes Percent Auto 11.1 % (1.7-12.0); Neutrophils Percent Auto 73.3 % (43.0-75.0); Platelet Count 265 10^3/uL (150-450); Red Blood Count 4.26 10^6/uL (4.20-5.40); Red Cell Distribution Width 15.5 % (11.0-15.0); White Blood Count 9.5 10^3/uL (4.0-11.0)
--- NOTE | 2023-11-10 02:44 | XR_ITS ---
The [address] [address] Patient Name: ART GARCIA MRN: [id number] date: 1945 Sex: F Assigned Patient Location: ER Current Patient Location: ER Accession/Order Number: [id number] Exam Date: 11/10/2023 03:00 Report Date: 11/10/2023 04:19 At the request of: NIKUNJ CONNOLLY Procedure: XR cervical spine 2-3V EXAMINATION: XR cervical spine 2-3V HISTORY: fall COMPARISON: CT cervical spine 11/10/2023 FINDINGS: BONES: Posterior mechanical fusion C1-C2-3 via bilateral pedicle screws and rods. Left laminectomy with overlying plate placement involving C4-C5-6-7. Anterior fusion of C5-C6 via plate and screws. Base of dens fracture seen on CT study but not as well appreciated on the radiograph. Multilevel grade 1 anterior listhesis. DISC SPACES: Inner table spacer at C5-C6. Marked narrowing C6-C7 which is better appreciated on the CT study. PARASPINOUS: Negative. No paraspinous abnormality is seen. OTHER: Negative. XR/XR cervical spine 2-3V IMPRESSION: 1. Limited evaluation on today's cervical spine radiographs due to kyphosis and patient positioning. 2. Base of dens fracture, multilevel grade 1 anterior listhesis, and multilevel surgical changes without evidence of hardware failure. Electronically authenticated by: ZEKE COSBY Date: 11/10/2023 04:19
[2023-11-10 02:57] LABS: Anion Gap 23.4; BUN Creatinine Ratio 10.6; Calcium 10.7 mg/dL (8.5-10.1); Carbon Dioxide 24.5 mmol/L (21.0-32.0); Chloride 86 mmol/L (98-107); Estimated GFR (African America 6 (>=60); Estimated GFR (Non-African Ame 5 (>=60); Glucose 210 mg/dL (74-106); Potassium 4.9 mmol/L (3.5-5.1); Sodium 129 mmol/L (136-145)
--- NOTE | 2023-11-10 04:47 | PC.NURSE ---
neck cleared by Radiologist, C Collar removed. pt to be d/c'd home.
[2023-11-10 05:04] VITALS: BP 117/60; PULSE 75; O2SAT 97
== END 2023-11-10 05:40 | disposition home or self-care (01) ==
PROVIDERS: Emergency Provider Internal Medicine; PCP Internal Medicine
DX: S01.01XA Laceration without foreign body of scalp, initial encounter (principal); S09.90XA Unspecified injury of head, initial encounter; S16.1XXA Strain of muscle, fascia and tendon at neck level, initial encounter; E11.9 Type 2 diabetes mellitus without complications; Z87.891 Personal history of nicotine dependence; W01.10XA Fall on same level from slipping, tripping and stumbling with subsequent striking against unspecified object, initial encounter; Z23 Encounter for immunization
CPT/HCPCS: 36415; 70450; 72040; 72125; 80048; 82948; 85025; 90471; 90715; 99285

== ENCOUNTER 2023-11-11 09:09 | Outpatient (OUT) | payer MEDICARE, SELFPAY ==
--- NOTE | 2023-11-11 | XR_ITS ---
The [address] [address] Patient Name: ART GARCIA MRN: [id number] date: 1945 Sex: F Assigned Patient Location: Current Patient Location: [facility] Accession/Order Number: [id number] Exam Date: 11/11/2023 09:22 Report Date: 11/11/2023 11:29 At the request of: PABLO GONZALEZ Procedure: XR foot TRI min 3V EXAMINATION: XR foot TRI min 3V HISTORY: BILATERAL FOOT PAIN COMPARISON: No relevant comparison available. 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 Pattern of the bones suggests underlying osteopenia. No focal lytic or sclerotic changes to suggest osteomyelitis SOFT TISSUES: Soft tissue swelling amputation site of the first toe OTHER: Negative. LEFT FINDINGS: BONES: No acute fracture or dislocation. There is a lytic change to the third distal phalanx. Mild to moderate degenerative changes joint space narrowing and marginal osteophyte formation SOFT TISSUES: Negative. No visible soft tissue swelling. OTHER: Scattered calcifications Results initiated through operations XR/XR foot TRI min 3V IMPRESSION: Osteomyelitis of left third distal phalanx Electronically authenticated by: GENARO MARTINEZ Date: 11/11/2023 11:29
== END 2023-11-11 09:10 | disposition home or self-care (01) ==
LOC: WC 09:09
PROVIDERS: PCP Internal Medicine; Visit Provider Physician Assistant
DX: M79.671 Pain in right foot (principal); M79.672 Pain in left foot; E11.621 Type 2 diabetes mellitus with foot ulcer; L97.512 Non-pressure chronic ulcer of other part of right foot with fat layer exposed; L97.522 Non-pressure chronic ulcer of other part of left foot with fat layer exposed
CPT/HCPCS: 73630; G0463

== ENCOUNTER 2023-11-20 10:16 | Outpatient (OUT) | payer MEDICARE, SELFPAY ==
--- NOTE | 2023-11-20 10:00 | CA_ITS ---
Patient Name: ART GARCIA MR#: [id number] : 1945 Exam Date: 11/20/2023 Ordering Doctor: DR BERHANE BARAKAT M.D. ECHOCARDIOGRAM REPORT PROCEDURE: CA ECHO DOPPLER COMPLETE INDICATIONS: Abnormal ECG, congestive heart failure, cardiac stent, pace/defib, COPD, hypertension, diabetes COMPARISON: None. DESCRIPTION: COMPLETE ECHOCARDIOGRAM Real-time transthoracic echocardiography with 2D, M-mode, spectral and color flow Doppler performed. QUALITY: Technical quality was adequate. LEFT VENTRICLE: Normal chamber size. Normal left ventricular wall thickness. Systolic function is difficult to assess but appears at the lower limits of normal. LV EF: Lower limits of normal left ventricular ejection fraction, (50%). DIASTOLIC: Grade 2 diastolic dysfunction. ATRIAL SEPTUM: Visually appears intact. LEFT ATRIUM: Mild dilatation. RIGHT ATRIUM: Normal chamber size. RIGHT VENTRICLE: Normal chamber size. Systolic function is normal. Pacer wire present. TRICUSPID VALVE: Normal mobility and thickness. No stenosis with trivial regurgitation. MITRAL VALVE: Normal mobility and thickness. No evidence of mitral valve stenosis. Mild mitral annular calcification. Trivial mitral regurgitation. AORTIC VALVE: Normal trileaflet appearance. Mildly calcified aortic valve. Mildly diminished mobility. Doppler velocity suggests mild aortic valve stenosis. DVI 0.38, MILAN 1.6 cm2. Mild to moderate aortic regurgitation. AORTIC ROOT: Normal diameter and appearance. Ascending aorta is normal in size. PULMONIC VALVE: Normal thickness and mobility. No stenosis. Trivial regurgitation. PERICARDIUM: No evidence of pericardial effusion. IVC: Within normal limits. PLEURA: CONCLUSION: 1. The left ventricle is normal in size. Systolic function is difficult to assess but appears at the lower limits of normal. LVEF is 50%. 2. Normal right ventricular size and systolic function. 3. Grade 2 diastolic dysfunction. 4. Mild aortic valve stenosis. 5. Mild to moderate aortic regurgitation. Adult Echocardiography Procedure Report Left Ventricle LVEDD (3.7 - 5.6 cm): 5.14 cm LVESD (2.2 - 4.0 cm): 3.87 cm LVIVS thickness (0.6 - 1.2 cm): 0.93 cm LVPW thickness (0.5 - 1.0 cm): 0.95 cm e': 0.10 m/s E - e': 9.61 LVOT Max Gradient: 1.57 mm[Hg] LVOT Area (cm2): 0.63 m/s Peak Velocity (LVOT): 0.63 m/s Mean Velocity (LVOT): 0.38 m/s LVOT Diameter 2.12 cm Left Atrium LA Volume Index (2D A2C): 41.45 ml/m2 Left Atrium Systolic Dimension: 3.70 cm Mitral Valve MV E to A Ratio: 1.82 Mitral Valve A-Wave Peak Velocity: 0.54 m/s Mitral Valve E-Wave Peak Velocity: 0.98 m/s Right Ventricle Aorta AO Root Diam: 3.19 cm Ascending Ao Diam: 2.66 cm Aortic Valve AoV Area (Peak Alireza): 1.36 cm2, 1.37 cm2 AoV Area (VTI): 1.58 cm2, 1.75 cm2 Deceleration Carver: 0.97 m/s2 Pressure Half-Time: 618.58 ms Peak Velocity(Antegrade Flow): 1.61 m/s, 1.43 m/s, 1.63 m/s Peak Gradient(Antegrade Flow): 10.36 mm[Hg], 8.15 mm[Hg], 10.58 mm[Hg] Mean Velocity(Antegrade Flow): 1.02 m/s, 1.05 m/s, 1.03 m/s Mean Gradient(Antegrade Flow): 4.99 mm[Hg], 4.92 mm[Hg], 5.09 mm[Hg] Velocity Time Integral: 30.67 cm, 34.06 cm, 33.80 cm Tricuspid Valve Pulmonic Valve Mean Gradient: 3.22 mm[Hg] Mean Velocity: 0.85 m/s Peak Velocity: 1.24 m/s, 1.10 m/s Peak Gradient: 4.88 mm[Hg], 6.16 mm[Hg] Right Atrium Right Atrium Systolic Pressure: 26.22 ml, 26.22 ml Dictated by: Moo Rivero M.D. on 11/20/2023 at 15:21 Approved by: Moo Rivero M.D. on 11/20/2023 at 15:27
== END 2023-11-20 10:17 | disposition home or self-care (01) ==
LOC: CARD 10:16
PROVIDERS: PCP Internal Medicine; Visit Provider Internal Medicine Interventional Cardiology
DX: R94.31 Abnormal electrocardiogram [ECG] [EKG] (principal)
CPT/HCPCS: 93306

== ENCOUNTER 2023-11-25 15:49 | Outpatient (OUT) | payer MEDICARE, SELFPAY | END 2023-11-25 15:50 | disposition home or self-care (01) | LOC: WC 15:49 | PROVIDERS: PCP Internal Medicine; Visit Provider Podiatrist Foot & Ankle Surgery | DX: E11.621 Type 2 diabetes mellitus with foot ulcer (principal); L97.522 Non-pressure chronic ulcer of other part of left foot with fat layer exposed; L97.512 Non-pressure chronic ulcer of other part of right foot with fat layer exposed | CPT/HCPCS: 11042 ==